=== PATIENT | female | born 1985 | race Caucasian/White ===

== ENCOUNTER 2022-06-11 18:06 | Emergency (ER) | payer OTHER, SELFPAY ==
[2022-06-11 18:19] VITALS: BP 137/85; PULSE 90; RESP 18; TEMP 36.7; O2SAT 97; BMI 63.6
--- NOTE | 2022-06-11 18:48 | CRLHL7_ITS ---
For Patients: As a result of the Cures Act, medical imaging exams and procedure reports are released immediately into your electronic medical record. You may view this report before your referring provider. If you have questions, please contact your health care provider. INDICATION: Bleeding during . COMPARISON: No images available. TECHNIQUE: Grayscale color Doppler images of the pelvis. FINDINGS: The uterus is anteverted. There is a candidate gestational sac within the uterus measuring 2.2 centimeters. No pole or yolk sac is identified. The left ovary is not identified. The right ovary measures 3.2 x 1.5 x 2.6 cm. No focal ovarian lesion. No free fluid. IMPRESSION: A candidate gestational sac measures upper limits of normal size without pole or yolk sac. Differential includes early or failed . Recommend continued clinical follow-up and serial beta HCG. Dictated by Alfredo Monahan MD @ 06/11/2022 9:13:34 PM (Electronically Signed)
--- NOTE | 2022-06-11 18:57 | ED.PREGNANCY ---
HPI - General Time Seen by Provider: 18:58 <Pricilla Duncan MD - Last Filed: 06/11/22 20:42> Date Seen: 06/11/22 <Pricilla Duncan MD - Last Filed: 06/11/22 20:42> Chief complaint: Vaginal Bleeding <Pricilla Duncan MD - Last Filed: 06/11/22 20:42> Stated complaint: Vaginal Bleed <Pricilla Duncan MD - Last Filed: 06/11/22 20:42> Time Seen by Provider: 06/11/22 18:07 <Pricilla Duncan MD - Last Filed: 06/11/22 20:42> Source: patient, RN notes reviewed and old records reviewed (Did see her report of her ultrasound on her phone from May 13. She had a 6 week IUP) <Pricilla Duncan MD - Last Filed: 06/11/22 20:42> Mode of arrival: ambulatory <Pricilla Duncan MD - Last Filed: 06/11/22 20:42> Limitations: no limitations <Pricilla Duncan MD - Last Filed: 06/11/22 20:42> History of Present Illness HPI Narrative: Patient is a 36-year-old female coming in with bleeding in . She was at [employer] and had a positive test and ultrasound on May 13, giving her a date of 6 weeks. She had a Mirena IUD and they removed that. Over the weekend, she had some spotting and bleeding. On Wednesday she passed more clots. She is still bleeding but not symptomatic. She is not feeling lightheaded or like she might pass out. She is wondering if she is miscarrying. I was able to see her ultrasound report and it did look like they saw gestational sac in the uterus without pole. She notes that she has had no symptoms such as breast tenderness or morning sickness with this . This would be her 4th . She is not having significant abdominal pain, has had some cramping like menstrual cramps. By patient's 1st ultrasound, her estimated date of delivery was 01/06/2022, this would put her at 10 weeks 1 day of currently today. <Pricilla Duncan MD - Last Filed: 06/11/22 20:42> Hx Last Menstrual Period: Unknown as patient became on a Mirena IUD <Pricilla Duncan MD - Last Filed: 06/11/22 20:42> Patient : Yes <Pricilla Duncan MD - Last Filed: 06/11/22 20:42> Related Data : 4 <Pricilla Duncan MD - Last Filed: 06/11/22 20:42> Para: 3 <Pricilla Duncan MD - Last Filed: 06/11/22 20:42> Home medications: Home Medications Medication Instructions Recorded Confirmed No Known Home Medications 06/11/22 06/11/22 <Pricilla Duncan MD - Last Filed: 06/11/22 20:42> Allergies/Adverse reactions: Allergies Allergy/AdvReac Type Severity Reaction Status Date / Time venlafaxine [From Effexor] Allergy Mild Rash Verified 06/11/22 18:31 Penicillins Allergy Unknown Verified 06/11/22 18:31 <Pricilla Duncan MD - Last Filed: 06/11/22 20:42> Review of Systems Status of ROS: Reports: 6 or more systems reviewed and unremarkable except as noted in History and below <Pricilla Duncan MD - Last Filed: 06/11/22 20:42> Exam Const: Vital Signs, click to edit/add: Vital Signs - 24 hr 06/11/22 18:19 Temperature 98.1 F Pulse Rate [Right Pulse Oximeter] 90 Respiratory Rate 18 Blood Pressure [Ri ght Upper Arm] 137/85 Pulse Oximetry 97 Oxygen Delivery Me thod Room Air <Pricilla Duncan MD - Last Filed: 06/11/22 20:42> Vital Signs, click to edit/add: Vital Signs - 24 hr 06/11/22 18:19 Temperature 98.1 F Pulse Rate [Right Pulse Oximeter] 90 Respiratory Rate 18 Blood Pressure [Ri ght Upper Arm] 137/85 Pulse Oximetry 97 Oxygen Delivery Me thod Room Air <Pricilla Henley MD - Last Filed: 06/11/22 21:25> Documenting provider has reviewed patient's vital signs: yes <Pricilla Duncan MD - Last Filed: 06/11/22 20:42> Common normals: no apparent distress, oriented x3, no limitations, healthy appearing, alert and well nourished <Pricilla Duncan MD - Last Filed: 06/11/22 20:42> General appearance: cooperative, comfortable and well kempt <Pricilla Duncan MD - Last Filed: 06/11/22 20:42> Nutritional appearance: obese <Pricilla Duncan MD - Last Filed: 06/11/22 20:42> HENMT: Common normals: normocephalic and head/scalp atraumatic <Pricilla Duncan MD - Last Filed: 06/11/22 20:42> Head and scalp: normocephalic and atraumatic <Pricilla Duncan MD - Last Filed: 06/11/22 20:42> Eye: Common normals: PERRL, EOMs intact bilaterally, conjunctivae normal and no scleral icterus <Pricilla Duncan MD - Last Filed: 06/11/22 20:42> Conjunctiva: conjunctiva(e) normal <Pricilla Duncan MD - Last Filed: 06/11/22 20:42> Pupil: PERRL <Pricilla Duncan MD - Last Filed: 06/11/22 20:42> Resp: Common normals: normal respiratory effort, no retractions, no use of accessory muscles and clear to auscultation bilaterally <Pricilla Duncan MD - Last Filed: 06/11/22 20:42> Auscultation: clear to auscultation bilaterally <Pricilla Duncan MD - Last Filed: 06/11/22 20:42> Cardio: Common normals: regular rate, regular rhythm, S1 normal heart sound, S2 normal heart sound, no gallops, no clicks and no murmurs <Pricilla Duncan MD - Last Filed: 06/11/22 20:42> Rate: regular rate <Pricilla Duncan MD - Last Filed: 06/11/22 20:42> Rhythm: regular rhythm <Pricilla Duncan MD - Last Filed: 06/11/22 20:42> Heart sounds: S1 normal and S2 normal <Pricilla Duncan MD - Last Filed: 06/11/22 20:42> GI: Other: No noted abdominal pain but body habitus does preclude good examination. Certainly no rebound or guarding. <Pricilla Duncan MD - Last Filed: 06/11/22 20:42> Neuro: Common normals: oriented x3 <Pricilla Duncan MD - Last Filed: 06/11/22 20:42> Sensorium/orientation: alert <Pricilla Duncan MD - Last Filed: 06/11/22 20:42> Psych: Appearance: well kempt <Pricilla Duncan MD - Last Filed: 06/11/22 20:42> Course Course Hospital Course: This patient is alert, hemodynamically stable, not giving any history for concern of severe active bleeding. We will obtain an ultrasound and appropriate blood work. Is unclear she has had RhoGAM with prior pregnancies thus will do ABO and Rh screening. <Pricilla Duncan MD - Last Filed: 06/11/22 20:42> Reevaluation(s) Reevaluation #1: Reviewed with patient she is A negative, did order RhoGAM. Hemoglobin is stable, hCG is in the 1000 range which is much lower than it was. Preliminarily the ultrasound is showing small gestational sac about 7 weeks 1 day with no fetus no yolk sac. Need to await Radiology over-read. Care signed over to Dr. Henley <Pricilla Duncan MD - Last Filed: 06/11/22 20:42> Time: 20:25 <Pricilla Duncan MD - Last Filed: 06/11/22 20:42> Vital Signs Vital signs: Initial Vital Signs Temperature 98.1 F 06/11/22 18:19 Temperature Source Temporal Artery Scan 06/11/22 18:19 Pulse Rate 90 06/11/22 18:19 Respiratory Rate 18 06/11/22 18:19 Blood Pressure 137/85 06/11/22 18:19 Blood Pressure Mean 102 06/11/22 18:19 Blood Pressure Position Sitting 06/11/22 18:19 Pulse Oximetry 97 06/11/22 18:19 Oxygen Delivery Method 06/11/22 18:19 Vital Signs Temperature 98.1 F 06/11/22 18:19 Pulse Rate 90 06/11/22 18:19 Respiratory Rate 18 06/11/22 18:19 Blood Pressure 137/85 06/11/22 18:19 Pulse Oximetry 97 06/11/22 18:19 Oxygen Delivery Method 06/11/22 18:19 Temperature 98.1 F 06/11/22 18:19 Pulse Rate 90 06/11/22 18:19 Respiratory Rate 18 06/11/22 18:19 Blood Pressure 137/85 06/11/22 18:19 Pulse Oximetry 97 06/11/22 18:19 Oxygen Delivery Method 06/11/22 18:19 <Pricilla Duncan MD - Last Filed: 06/11/22 20:42> Initial Vital Signs Temperature 98.1 F 06/11/22 18:19 Temperature Source Temporal Artery Scan 06/11/22 18:19 Pulse Rate 90 06/11/22 18:19 Respiratory Rate 18 06/11/22 18:19 Blood Pressure 137/85 06/11/22 18:19 Blood Pressure Mean 102 06/11/22 18:19 Blood Pressure Position Sitting 06/11/22 18:19 Pulse Oximetry 97 06/11/22 18:19 Oxygen Delivery Method 06/11/22 18:19 Vital Signs Temperature 98.1 F 06/11/22 18:19 Pulse Rate 90 06/11/22 18:19 Respiratory Rate 18 06/11/22 18:19 Blood Pressure 137/85 06/11/22 18:19 Pulse Oximetry 97 06/11/22 18:19 Oxygen Delivery Method 06/11/22 18:19 Temperature 98.1 F 06/11/22 18:19 Pulse Rate 90 06/11/22 18:19 Respiratory Rate 18 06/11/22 18:19 Blood Pressure 137/85 06/11/22 18:19 Pulse Oximetry 97 06/11/22 18:19 Oxygen Delivery Method 06/11/22 18:19 <Pricilla Henley MD - Last Filed: 06/11/22 21:25> MDM - OB/Uterine Contractions MDM Narrative Medical decision making narrative: Ultrasound showing a gestational sac without a yolk or embryo. We discussed that she would likely continue to spot and then have a heavier bleeding. She is going to follow-up with OBGYN this week. We discussed reasons to return to the ER. Patient had no other questions or concerns. <Pricilla Henley MD - Last Filed: 06/11/22 21:25> Lab Data Attestation: I reviewed the patient's lab results. <Pricilla Duncan MD - Last Filed: 06/11/22 20:42> Lab results narrative: Patient states her hCG was at a 10,000 level on May 13. <Pricilla Duncan MD - Last Filed: 06/11/22 20:42> Labs: Lab Results 06/11/22 06/11/22 06/11/22 Range/Units 19:15 19:15 19:15 WBC 7.51 (4.50-11.00) K/uL RBC 4.90 (4.00-5.20) m/uL Hgb 14.0 (12.0-16.0) gm/dL Hct 43.8 (33.0-51.0) % MCV 89 (80-100) fL MCH 29 (26-34) pg MCHC 32 (32-36) gm/dL RDW Coeff of Ventura 12.7 (11.5-15.5) % Plt Count 275 (140-440) K/uL Neut % (Auto) 63.0 (42.0-72.0) % Lymph % (Auto) 28.0 (20-44) % Sutter % (Auto) 6.7 (0.0-11.0) % Eos % (Auto) 2.0 (0.0-7.0) % Baso % (Auto) 0.3 (0.0-3.0) % Neut # (Auto) 4.74 (1.7-7.0) K/uL Lymph # (Auto) 2.10 (0.90-2.90) K/uL Sutter # (Auto) 0.50 (0.00-0.90) K/UL Eos # (Auto) 0.15 (0.00-0.50) K/uL Baso # (Auto) 0.02 (0.00-0.30) K/uL Abs Immat Gran (auto) 0.00 (0.00-0.30) K/uL HCG, Quant 1152.60 mIU/mL Blood Type A Negative <Pricilla Duncan MD - Last Filed: 06/11/22 20:42> Lab Results 06/11/22 06/11/22 06/11/22 Range/Units 19:15 19:15 19:15 WBC 7.51 (4.50-11.00) K/uL RBC 4.90 (4.00-5.20) m/uL Hgb 14.0 (12.0-16.0) gm/dL Hct 43.8 (33.0-51.0) % MCV 89 (80-100) fL MCH 29 (26-34) pg MCHC 32 (32-36) gm/dL RDW Coeff of [place] 12.7 (11.5-15.5) % Plt Count 275 (140-440) K/uL Neut % (Auto) 63.0 (42.0-72.0) % Lymph % (Auto) 28.0 (20-44) % Sutter % (Auto) 6.7 (0.0-11.0) % Eos % (Auto) 2.0 (0.0-7.0) % Baso % (Auto) 0.3 (0.0-3.0) % Neut # (Auto) 4.74 (1.7-7.0) K/uL Lymph # (Auto) 2.10 (0.90-2.90) K/uL Sutter # (Auto) 0.50 (0.00-0.90) K/UL Eos # (Auto) 0.15 (0.00-0.50) K/uL Baso # (Auto) 0.02 (0.00-0.30) K/uL Abs Immat Gran (auto) 0.00 (0.00-0.30) K/uL HCG, Quant 1152.60 mIU/mL Blood Type A Negative <Pricilla Henley MD - Last Filed: 06/11/22 21:25> Imaging Data Limited OB ultrasound: Attestation: I have reviewed the pertinent imaging results. <Pricilla Henley MD - Last Filed: 06/11/22 21:25> Radiologist's impression: Grayscale color Doppler images of the pelvis. FINDINGS: The uterus is anteverted. There is a candidate gestational sac within the uterus measuring 2.2 centimeters. No pole or yolk sac is identified. The left ovary is not identified. The right ovary measures 3.2 x 1.5 x 2.6 cm. No focal ovarian lesion. No free fluid. IMPRESSION: A candidate gestational sac measures upper limits of normal size without pole or yolk sac. Differential includes early or failed . Recommend continued clinical follow-up and serial beta HCG. <Pricilla Henley MD - Last Filed: 06/11/22 21:25> Critical Care Time Critical Care Time Critical Care Time: No <Pricilla Duncan MD - Last Filed: 06/11/22 20:42> Discharge Plan Discharge Clinical Impression: Empty gestational sac with ongoing <Pricilla Duncan MD - Last Filed: 06/11/22 20:42> Patient Disposition: Home, Self-Care <Pricilla Duncan MD - Last Filed: 06/11/22 20:42> Condition: Stable <Pricilla Duncan MD - Last Filed: 06/11/22 20:42> Additional Instructions: You will be given information on how follow-up with OBGYN this week. Expect continued spotting with probable heavier bleeding in the next few days. Return to the ER if you start to have very heavy bleeding where you are soaking a pad every hour or more frequently. <Pricilla Duncan MD - Last Filed: 06/11/22 20:42> Prescriptions: No Action No Known Home Medications <Pricilla Duncan MD - Last Filed: 06/11/22 20:42> Follow Up/Referrals: Provider,Not a Local [Primary Care Provider] - <Pricilla Duncan MD - Last Filed: 06/11/22 20:42> Stand Alone Forms: MyHealth Info Instructions <Pricilla Duncan MD - Last Filed: 06/11/22 20:42>
[2022-06-11 19:21] LABS: Basophils Absolute Auto 0.02 K/uL (0.00-0.30); Basophils Percent Auto 0.3 % (0.0-3.0); Eosinophils Absolute Auto 0.15 K/uL (0.00-0.50); Hematocrit 43.8 % (33.0-51.0); Mean Corpuscular HGB Conc 32 gm/dL (32-36); Mean Corpuscular Hemoglobin 29 pg (26-34); Mean Corpuscular Volume 89 fL (80-100); Monocytes Percent Auto 6.7 % (0.0-11.0); Neutrophils Absolute Auto 4.74 K/uL (1.7-7.0); Platelet Count* 275 K/uL (140-440); RDW Coefficient of Variation % 12.7 % (11.5-15.5); White Blood Count* 7.51 K/uL (4.50-11.00)
[2022-06-11 19:24] LABS: Slide Review Reflex No
--- NOTE | 2022-06-11 22:03 | ED.NURSE ---
Rhophylac administered into right deltoid.
== END 2022-06-11 22:09 | disposition home or self-care (01) ==
PROVIDERS: Family Medicine; Emergency Provider Family Medicine
DX: O36.80X0 Pregnancy with inconclusive fetal viability, not applicable or unspecified (principal)
CPT/HCPCS: 36415; 76801; 76815; 76817; 84702; 85025; 85461; 86900; 86901; 99284; J2791

== ENCOUNTER 2022-06-15 09:39 | Outpatient (CLI) | payer OTHER, SELFPAY ==
--- NOTE | 2022-06-15 09:45 | CRLHL7_ITS ---
For Patients: As a result of the Century Cures Act, medical imaging exams and procedure reports are released immediately into your electronic medical record. You may view this report before your referring provider. If you have questions, please contact your health care provider. INDICATION: First trimester scan, establish dates. COMPARISON: None. TECHNIQUE: Real-time baeza-scale imaging of the pelvis was performed. FINDINGS: A gestational sac is present within the endometrial canal with a mean sac diameter of 25.3 millimeters correlating with a 7 week 4 day gestation. This has shown interval growth compared to the prior study 4 days ago when it measured 7 weeks 1 day. A pole may be present on the current exam measuring 5.5 millimeters which would correspond with a 6 week 2 day gestation. No heart tones. No ectopic. IMPRESSION: Mild interval growth of the gestational sac and development of a possible pole as discussed above. Continued follow-up is recommended. Dictated by Nuno Colon MD @ 06/15/2022 10:47:41 AM (Electronically Signed)
== END 2022-06-15 09:40 | disposition home or self-care (01) ==
PROVIDERS: Visit Provider Obstetrics & Gynecology
DX: O02.0 Blighted ovum and nonhydatidiform mole (principal)
CPT/HCPCS: 76801; 76817

== ENCOUNTER 2022-06-16 13:20 | Outpatient (CLI) | payer OTHER, SELFPAY | END 2022-06-16 13:21 | disposition home or self-care (01) | PROVIDERS: Visit Provider Obstetrics & Gynecology | DX: O02.0 Blighted ovum and nonhydatidiform mole (principal) | CPT/HCPCS: 84702 ==

== ENCOUNTER 2022-06-18 08:18 | Day surgery (SDC) | payer OTHER, SELFPAY ==
[2022-06-18] MEDS: LACTATED RINGERS 1000 ML 1,000 ML 100 ML IV (08:30)
[2022-06-18 08:53] VITALS: BP 145/90; PULSE 83; RESP 18; TEMP 36.6; O2SAT 95
[2022-06-18 08:54] VITALS: BMI 64.3
--- NOTE | 2022-06-18 10:01 | W.PM.GYNPROC ---
Procedure Note Time Seen by Provider: 09:00 Date Seen: 06/18/22 Procedure Details: Preoperative diagnosis: Carol Cooley is a 36-year-old 4 para 3 0 1 3 with a missed at approximately 7 weeks 4 days gestation by ultrasound. Postoperative diagnosis: Same Procedure (s): Suction curettage and Mirena IUD insertion Anesthesia: Conscious sedation, paracervical block Surgeon: Mabel Dumas MD Business Continuity Planning Director: Not applicable Pre-op antibiotics: 3 g of Ancef IV fluid: [] mL Estimated blood loss: [] mL Specimen: Products of conception to pathology Findings: On exam under anesthesia: the uterus was approximately 7 weeks size, anterior position. Cervical os was [closed/dilated] [with/without] active bleeding. Adnexa were without mass or fullness palpable. The uterus sounded to [] cm. On suction curettage there was a moderate to large amount of products of conception. Procedure: [Patient name] was taken to the operating room where conscious sedation was found to be adequate. She was placed in the dorsal lithotomy position and an exam under anesthesia was performed with with findings stated above. She was then prepped and draped in normal sterile manner. A bivalve speculum was placed in the vagina to visualize the cervix. A paracervical block was placed using 0.5% Marcaine: 5 mL injected at the 4 and 8 o'clock positions on the cervix. The [] lip of the cervix was grasped with a long Allis clamp. The cervix was dilated to Hegar # []. A #[] curved curette was then advanced into the uterus without difficulty. A suction curettage was then performed using 40-50 mmHg pressure. [] passes with the curette were performed to remove all visualized tissue. The curette was removed and mild, sharp curettage was performed to verify that all of the products of conception had been removed. One last pass with the curved curette was then made to verify that all of the tissue had been removed. Attention was turned to IUD placement. The IUD is loaded into the insertion tube, inserted to the sounded depth, and the IUD is deployed. Insertion tube was removed. Strings are trimmed to 3 cm. The Allis clamp was removed from the [] lip of the cervix. [] was needed to obtain hemostasis. Excellent hemostasis was noted. The speculum was then removed from the vagina. The patient tolerated this procedure well. Sponge, lap and instrument counts were correct x2 the end of the procedure. The patient was awakened from sedation and taken to the recovery area in stable condition.
[2022-06-18] MEDS: CEFAZOLIN 1 GM inj 3 GM IVP (10:12)
[2022-06-18] MEDS: BUPIVACAINE 0.25 %/EPI 1:200K 30 ml INJECTION (10:35)
--- NOTE | 2022-06-18 10:45 | PM.GYNPRPL ---
Procedure Pre-op/Post-op diagnoses: Pre-Op/Post-Op Diagnoses Operation Date: 06/18/22 09:55 <No data on this case meets the specified criteria> Procedure: Procedures Operation Date: 06/18/22 09:55 <No data on this case meets the specified criteria> Estimated blood loss (mL): 25 Anesthesia type: MAC Complications: none Specimen: uterine contents Disposition: PACU Narrative: Preoperative diagnosis: Carol Cooley is a 36-year-old 4 para 3 0 1 3 with a missed at approximately 7 weeks 4 days gestation by ultrasound. Postoperative diagnosis: Same Procedure (s): Suction curettage and Mirena IUD insertion Anesthesia: Conscious sedation, paracervical block Surgeon: Mabel Dumas MD Manager Quality Improvement: Not applicable Pre-op antibiotics: 3 g of Ancef Estimated blood loss: 25 mL Specimen: Products of conception to pathology Findings: On exam under anesthesia: the uterus was approximately 6 weeks size, anterior position. Cervix was very difficult to visualize adequately due to redundant vaginal tissue and patient's overall habitus. Multiple retractors required. Cervical os was dilated without active bleeding but some tissues noted at external os. Adnexa very difficult to assess due to habitus. Large posterior compartment prolapse noted - visually stage 2-3. The uterus sounded to 7 cm. On suction curettage there was a small amount of products of conception. Procedure: Carol was taken to the operating room where conscious sedation was found to be adequate. She was placed in the dorsal lithotomy position and an exam under anesthesia was performed with with findings stated above. She was then prepped and draped in normal sterile manner. A bivalve speculum was placed in the vagina to visualize the cervix. A paracervical block was placed using 0.25% Marcaine: 10 mL injected at the 12, 4 and 8 o'clock positions on the cervix. The anterior lip of the cervix was grasped with a long Allis clamp. The cervix was dilated to Hegar # 6. A #6 curved curette was then advanced into the uterus without difficulty. A suction curettage was then performed using 40-50 mmHg pressure - unable to achieve 60 mmHg. 3 passes with the curette were performed to remove all visualized tissue. The curette was removed and mild, sharp curettage was performed to verify that all of the products of conception had been removed. One last pass with the curved curette was then made to verify that all of the tissue had been removed. Attention was turned to IUD placement. The IUD is loaded into the insertion tube, inserted to the sounded depth, and the IUD is deployed. Insertion tube was removed. Strings are trimmed to 3 cm. The Allis clamp was removed from the anterior lip of the cervix. Excellent hemostasis was noted. The speculum was then removed from the vagina. The patient tolerated this procedure well. Sponge, lap and instrument counts were correct x2 the end of the procedure. The patient was awakened from sedation and taken to the recovery area in stable condition.
--- NOTE | 2022-06-18 10:53 | W.ANESCHARGE ---
Anesthesia Charges Start Date/Time Anesthesia Start Date: 06/18/22 Anesthesia Start Time: 09:55 Stop Date/Time Anesthesia Stop Date: 06/18/22 Anesthesia Stop Time: 10:52 Summary Emergency: No
[2022-06-18 10:55] VITALS: BP 134/84; PULSE 94; RESP 16; TEMP 36.6; O2SAT 98
--- NOTE | 2022-06-18 11:10 | W.ANESCHARGE ---
Anesthesia Charges Start Date/Time Anesthesia Start Date: 06/18/22 Anesthesia Start Time: 09:55 Stop Date/Time Anesthesia Stop Date: 06/18/22 Anesthesia Stop Time: 10:52 Summary Emergency: No
[2022-06-18 11:16] VITALS: BP 132/76; PULSE 85; RESP 16; O2SAT 95
== END 2022-06-18 11:53 | disposition home or self-care (01) ==
PROVIDERS: Visit Provider Obstetrics & Gynecology
PROC: (CPT 59820; principal; 2022-06-18 09:45)
DX: O02.1 Missed abortion (principal); Z3A.01 Less than 8 weeks gestation of pregnancy
CPT/HCPCS: 59820; 58300; 00940; 01965; 88305; J0690; J2250; J2704; J3010; J3490; J7120; J7298

== ENCOUNTER 2022-06-29 09:19 | Outpatient (CLI) | payer OTHER, SELFPAY ==
--- OUTSIDE RECORDS SUMMARY | 2022-06-29 09:23 | XMS_ITS | Encounter Summary ---
:1985 Author Organization [facility] Address [address] [place] [address] Care Team Providers Name Role Phone Alberto Locke M.D. Primary Care Provider Encounter Details Date Type Department Care Team Description 05/13/2022 Hospital Department of [place], Frequency Urin shonna Encounter Laboratory Rusty Santiago, Medicine in [address] [id number] [phone] Social History Tobacco Use Types Packs/Day Years Used Date Smoking Tobacco: Some Days Cigarettes 0 0 Smokeless Tobacco: Never Comments: Smoking 1-2 cigarettes monthly Alcohol Use Standard Drinks/Week Comments Not Currently 0 (1 standard drink = 0.6 oz pure alcoho l) occasional 1-2 a year Alcohol Habits Answer Date Recorded How often do you have a drink containing alcohol? Monthly or less 07/09/2020 How many drinks containing alcohol do you have on a 1 or 2 07/09/2020 typical day when you are drinking? How often do you have six or more drinks on one Never 04/19/2019 occasion? Social Isolation Answer Date Recorded In a typical week, how many times do you Twice a week 07/09/2020 talk on the phone with family, friends, or neighbors? How often do you get together with friends Once a week 04/19/2019 or relatives? How often do you attend anabaptism or rastafari More than 4 time s per year 07/09/2020 services? Do you belong to any clubs or organizations No 04/19/2019 such as anabaptism groups, unions, fraternal or athletic groups, or school groups? How often do you attend meetings of the Never 04/19/2019 clubs or organizations you belong to? Are you now , , , 04/19/2019 , never or living with a partner? Physical Activity Answer Date Recorded On average, how many days per week do you engage in moderate to 1 day 07/09/2020 strenuous exercise (like walking fast, running, jogging, dancing, swimming, biking, or other activities that cause a light or heavy sweat)? On average, how many minutes do you engage in exercise at th is 20 min 07/09/2020 level? Stress Answer Date Recorded Do you feel stress - tense, restless, nervous, or anxious, R ather much 07/09/2020 or unable to sleep at night because your mind is troubled all the time - these days? Financial Resource Strain Answer Date Recorded How hard is it for you to pay for the very basics like Somew hat hard 07/09/2020 food, housing, medical care, and heating? Intimate Partner Violence Answer Date Recorded Within the last year, have you been afraid of your No 04/19/2019 partner or ex-partner? Within the last year, have you been humiliated or No 04/19/2019 emotionally abused in other ways by your partner or ex-partner? Within the last year, have you been kicked, hit, No 04/19/2019 slapped, or otherwise physically hurt by your partner or ex-partner? Within the last year, have you been raped or forced to Patie nt refused 04/19/2019 have any kind of sexual activity by your partner or ex-partner? Food Insecurity Answer Date Recorded Within the past 12 months, you worried that your food Someti mes true 07/09/2020 would run out before you got money to buy more. Within the past 12 months, the food you bought just Never tr ue 04/19/2019 didn't last and you didn't have money to get more. Transportation Needs Answer Date Recorded In the past 12 months, has lack of transportation kept you f rom No 04/19/2019 medical appointments or from getting medications? In the past 12 months, has lack of transportation kept you f rom No 04/19/2019 meetings, work, or getting things needed for daily living? Education Answer Date Recorded What is the highest level of school you have Some college, n o degree 07/09/2020 completed or the highest degree you have received? Sex Assigned at Date Recorded Female 11/19/2017 10:29 AM CDT documented as of this encounter Medications at Time of Discharge Medication Sig Dispensed Refills Start Date End Date acetaminophen Take 1-2 tablets by 0 06/24/2017 (for_TYLENOL) 500 mg mouth every 6 (six) tablet hours as needed. azithromycin (ZITHROMAX) Take 1 tablet (250 mg 6 tablet 0 05/02/2022 250 mg tablet total) by mouth daily. Take 2 tablets (500 mg) on day 1, followed by 1 tablet (250 mg) daily for 4 days. benzonatate (TESSALON Take 1 capsule (100 mg 15 capsule 0 PERLES) 100 mg capsule total) by mouth 3 (three) times a day as needed for cough. escitalopram (LEXAPRO) Take 10 mg by mouth 0 04/23 10 mg tablet daily. Has not started yet FLUoxetine (PROzac) 20 60 mg daily. 0 02/04/2022 mg capsule levonorgestreL (MIRENA) 1 each by intrauterine 0 20 mcg/24 hours (6 yrs) route continuously. 52 mg IUD ondansetron (ZOFRAN) 4 Take 1 tablet (4 mg 20 tablet 0 01/22 mg tabletIndications: total) by mouth every Nausea 8 (eight) hours as needed for nausea or vomiting. polyethylene glycol Drink 1st portion of 238 g 0 2021 (MIRALAX) 17 gram/dose prep at 6 PM the oral powderIndications: evening before. 2nd Diarrhea portion must be started 4 hours before and finished 2 hours prior to report time documented as of this encounter Plan of Treatment Scheduled Procedures Name Priority Associated Diagnoses Date/Time COLONOSCOPY Diarrhea documented as of this encounter Procedures Procedure Name Priority Date/Time Associated Comments Diagnosis BACTERIAL CULTURE, Routine 05/13/2022 12:30 Frequency Urinary Results for this AEROBIC + SUSC, URINE PM CDT proced ure are in the results section. URINALYSIS WITH Routine 05/13/2022 12:30 Results for this MICROSCOPIC PM CDT procedure are i n the results section. documented in this encounter Results (ABNORMAL) Urinalysis with Microscopic: (05/13/2022 12:30 PM CDT) [facility] Time Signature Source Urine, Urine, 05/13/2022 [facility] Midstream 12:33 PM CDT Clarity Slightly Clear 05/13/2022 [facility] Cloudy (A) 12:51 PM CDT Color Yellow 05/13/2022 [facility] 12:51 PM CDT Comment: ----REFERENCE VALUE---- Colorless Yellow Philomena Blood Large (A) Negative 05/13/2022 12:51 PM CDT [facility] Nitrite Negative Negative 05/13/2022 12:51 PM CDT [facility] Leukocyte Esterase Moderate (A) Negative 05/13/2022 12:51 P M CDT [facility] Protein Trace mg/dL 05/13/2022 12:51 PM CDT [facility] Comment: ----REFERENCE VALUE---- Negative Trace Glucose Negative Negative mg/dL 05/13/2022 12:51 PM CDT R [facility] Ketones, QI(U) Negative Negative mg/dL 05/13/2022 12:51 PM CDT [facility] Bilirubin Negative Negative 05/13/2022 12:51 PM CDT [facility] pH 5.5 5.0 - 8.0 05/13/2022 12:51 PM CDT [facility] Specific [place] >=1.030 1.001 - 1.035 05/13/2022 12:51 PM CDT [facility] Urobilinogen 0.2 0.2 - 1.0 mg/dL 05/13/2022 12:51 PM C DT [facility] White Blood Cells 11-20 (A) /hpf 05/13/2022 12:51 PM CD T [facility] Comment: ----REFERENCE VALUE---- Males: 0-3 Females: 0-10 Unknown: 0-10 Red Blood Cells 3-10 (A) 0 - 2 /hpf 05/13/2022 12:51 PM CDT [facility] Dysmorphic Red Blood Cells <=25 <=25 % 05/13/2022 12 :51 PM CDT [facility] Squamous Cells 4-10 /hpf 05/13/2022 12:51 PM CDT [facility] Bacteria Present (A) None Seen 05/13/2022 12:51 PM CDT [facility] Specimen Anatomical Collection Method Collection Time Receive d Time (Source) Location / / Volume Laterality Urine 05/13/2022 12:30 05/13/2022 PM CDT 12:33 PM CDT Rusty Guevara M.D. LAB URINE ORDERABLES Performing Organization Address City/[facility]/ZIP Code Phon e Number [facility]- [address] [place], [place] [address] [address] [place] [address] System in [place] [place] (ABNORMAL) Bacterial Culture, Aerobic + Susc, Urine (05/13/2022 12:30 PM CDT) [facility] gist Method Time Signature Urine Culture Mixed 05/14/2022 [facility] microbiota (A) 6:52 PM CDT Specimen Anatomical Collection Method Collection Time Receive d Time (Source) Location / / Volume Laterality Urine (Urine, 05/13/2022 12:30 05/13/2022 9:38 Midstream) PM CDT PM CDT Comment: Specimen Source Site: Urine Rusty Guevara M.D. 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 PCP - General Family Medicine 04/27/19 [address] [facility] [place] [phone] documented as of this encounter
--- OUTSIDE RECORDS SUMMARY | 2022-06-29 09:23 | XMS_ITS | Encounter Summary ---
:1985 Author Organization [facility] Address [address] [place] [address] Care Team Providers Name Role Phone Alberto Locke M.D. Primary Care Provider Reason for Visit Reason Comments Follow-up Encounter Details Date Type Department Care Team Description 05/13/2022 Clinical Communication Department of Nichole Ivey Follow-up Obstetrics and A, R.N. Gynecology in [address] [address] [place], [place] [phone] [phone] (Work) [phone] Social History Tobacco Use Types Packs/Day Years [...] or relatives? How often do you attend muslim or christian More than 4 time s per year 07/09/2020 services? Do you belong to any clubs or organizations No 04/19/2019 such as muslim groups, unions, fraternal or athletic groups, or [...] to pay for the very basics like Vouchr hat hard 07/09/2020 food, housing, medical care, [...] AM CDT documented as of this encounter Miscellaneous Notes Telephone Encounter - Nichole Ivey R.N. - 05/13/2022 9:12 AM CDT Patient returned call and informed of plan. Patient transferred to call center receptionist to schedule. Warning signs for ectopic reviewed with patient. If experiencing severe abdominal pain, severe cramping, or vaginal bleeding (heavy bleeding protocol). patient to come to emergency room call us or come in for evaluation. Telephone Encounter - Nichole Ivey R.N. - 05/13/2022 8:07 AM CDT Patient is calling stating she had the Mirena IUD in. She states she has had this in for 1 1/2 years. She states she normal gets her period, and had bleeding a few weeks ago. She states she took a homepregnancy test 2 nights ago and got a faint line on her test. She repeated the test again last night and noted it to be even more faint, but still could see a line. She states she is having some mild abdominal cramping and has noticed that she is urinating more often. Routing to on-call provider for review. documented in this encounter Plan of Treatment Scheduled Procedures Name Priority Associated Diagnoses Date/Time COLONOSCOPY Diarrhea documented as of this encounter Results (ABNORMAL) Bacterial Culture, Aerobic + Susc, Urine (05/13/2022 12:30 PM CDT) Patholo gist Method Time Signature Urine Culture Mixed 05/14/2022 [facility] microbiota (A) 6:52 PM CDT Specimen Anatomical Collection Method Collection Time Receive d Time (Source) Location / / Volume Laterality Urine (Urine, 05/13/2022 12:30 05/13/2022 9:38 Midstream) PM CDT PM CDT Comment: Specimen Source Site: Urine Rusty Guevara M.D. LAB MICROBIOLOGY - GENE RAL ORDERABLES Performing Organization Address City/State/ZIP Code Phon e Number [facility]- [address] [place] [address] [phone] [facility] [place] [address] (ABNORMAL) hCG (Human Chorionic Gonadotropin), Quantitative, (05/13/2022 12:07 PM CDT) Analysis Performed At [facility] Time Signature HCG, [address] (H) <5 IU/L 05/13/2022 [facility] Quantitative, 1:11 PM CDT , P Specimen Anatomical Collection Method Collection Time Receive d Time (Source) Location / / Volume Laterality Blood (Blood, 05/13/2022 12:07 05/13/2022 Venous) PM CDT 12:21 PM CDT Rusty Guevara M.D. 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 PCP - General Family Medicine 04/27/19 [place] [phone] documented as of this encounter
--- OUTSIDE RECORDS SUMMARY | 2022-06-29 09:23 | XMS_ITS | Encounter Summary ---
:1985 [address] [facility] Address [address] [place] [address] Care Team Providers Name Role Phone Alberto Locke M.D. Primary Care Provider Encounter Details Date Type Department Care Team Description 05/02/2022 [facility] [place], Carlie Bronchitis (Primary Department A, FISHER TRAP, C.N.P., Dx) [address] [place], [place] [address], [place] [address] [address] [place], [place] [phone] (Wo rk) Social History Tobacco Use Types Packs/Day Years [...] or relatives? How often do you attend islam or yarsanism More than 4 time s per year 07/09/2020 services? Do you belong to any clubs or organizations No 04/19/2019 such as islam groups, unions, fraternal or athletic groups, or [...] AM CDT documented as of this encounter Discharge Instructions Discharge InstructionsCarlie Reyes APRN, R.N. - 05/02/2022 7:54 PM CDT Plan Prednisone 40 mg daily x 5 days Z-hali take as directed Tessalon perles 100 mg 3 x a day as needed (may take 200 mg at night if needed) Follow up with primary care provider if symptoms persist after treatment Return to emergency department for worsening symptoms including fever, difficulty breathing, chest pain, vomiting. AttachmentsThe following attachments cannot be sent through Care Everywhere. Acute Bronchitis Adult Zobc-dv-Uevn (Belarusian)documented in this encounter Medications at Time of Discharge Medication Sig Dispensed Refills Start Date End Date acetaminophen Take 1-2 tablets by 0 06/24/2017 (for_TYLENOL) 500 mg mouth every 6 (six) tablet hours as needed. azithromycin Take 1 tablet (250 mg 6 tablet 0 05/02/2022 (ZITHROMAX) 250 mg total) by mouth tablet daily. Take 2 tablets (500 mg) on day 1, followed by 1 tablet (250 mg) daily for 4 days. benzonatate (TESSALON Take 1 capsule (100 15 capsule 0 05/02 PERLES) 100 mg capsule mg total) by mouth 3 (three) times a day as needed for cough. FLUoxetine (PROzac) 20 60 mg daily. 0 02/04/2022 mg capsule levonorgestreL (MIRENA) 1 each by 0 20 mcg/24 hours (6 yrs) intrauterine route 52 mg IUD continuously. ondansetron (ZOFRAN) 4 Take 1 tablet (4 mg 20 tablet 0 /2 03/2022 mg tabletIndications: total) by mouth every Nausea 8 (eight) hours as needed for nausea or vomiting. polyethylene glycol Drink 1st portion of 238 g 0 2021 (MIRALAX) 17 gram/dose prep at 6 PM the oral powderIndications: evening before. 2nd Diarrhea portion must be started 4 hours before and finished 2 hours prior to report time predniSONE (DELTASONE) Take 2 tablets (40 mg 10 tablet 0 05/07/2022 20 mg tablet total) by mouth daily for 5 days. documented as of this encounter ED Notes Carlie Reyes APRN, R.N. - 05/02/2022 7:54 PM CDT SUBJECTIVE CHIEF COMPLAINT/REASON FOR VISIT No chief complaint on file. HISTORY OF PRESENT ILLNESS History provided by: Patient and medical records Carol Cooley is a very pleasant 36 y.o. with past medical history of GERD who presents via private car from home for evaluation of cough. Patient reports productive cough that has been gradually worsening over the past 7-10 days. Cough has been persistent. Reports that she has been coughing so hard she feels she will vomit at times. Sputum expectorated is greenish in color. No fever, chills, chest pain. Current smoker. Home COVID 19 negative. REVIEW OF SYSTEMS Constitutional: Negative for activity change, chills, fatigue and fever. HENT: Positive for congestion. Negative for sore throat. Respiratory: Positive for cough. Negative for chest tightness and shortness of breath. Cardiovascular: Negative for chest pain and palpitations. Gastrointestinal: Negative for diarrhea, nausea and vomiting. Genitourinary: Negative for dysuria and hematuria. Musculoskeletal: Negative for myalgias. Skin: Negative for rash. Neurological: Negative for dizziness, weakness and headaches. Psychiatric/Behavioral: The patient is not nervous/anxious. OBJECTIVE Initial Vitals Temp Pulse Heart Rate Resp BP SpO2 -- -- -- -- -- -- Pain Score -- PHYSICAL EXAMINATION Constitutional: Nursing note and vitals reviewed. She is cooperative. HENT: Head: Atraumatic. Mouth/Throat: Oropharynx is clear and moist. Mucous membranes are moist. Eyes: Conjunctivae are normal. Neck: Neck supple. Cardiovascular: Normal rate. Pulmonary/Chest: Effort normal and breath sounds normal. No respiratory distress. Abdominal: Normal appearance. Musculoskeletal: Cervical back: Neck supple. Comments: Moves all extremities Neurological: Alert. Normal speech. Skin: No rash (on exposed skin) noted. ASSESSMENT/PLAN Ddx: viral upper respiratory illness, pneumonia, COPD exacerbation, emphysema, strep throat illness,bronchitis, asthma, reactive airway disease, chronic cough, medication side effects, allergic rhinitis, bronchiolitis, and gastroesophageal reflux disease Carol Cooley is a very pleasant 36 y.o. who presents for evaluation of cough. Exam findings include persistent cough. Clear lungs, no wheezing. Has no history of asthma. With persistent symptoms and HO smoking will treat for bronchitis. Provided prednisone, tessalon perles and z-hali. Strict return precautions provided and recommended follow up if symptoms persist despite treatment. Patient verbalized understanding and stable for discharge. I reviewed previous medical records including documentation from previous visits.CPR: No CPR performed. Final Diagnoses: as of 05/02/222100 Bronchitis Carlie Reyes APRN, R.N. 05/02/222000 Carlie Reyes APRN, R.N. 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 PCP - General Family Medicine 04/27/19 [place] [phone] documented as of this encounter
--- OUTSIDE RECORDS SUMMARY | 2022-06-29 09:23 | XMS_ITS | Encounter Summary ---
:1985 Author Organization [facility] Address [address] [place] [address] Care Team Providers Name Role Phone Alberto Locke M.D. Primary Care Provider Reason for Referral Outpatient (Routine) - Authorized Specialty Diagnoses / Procedures Referred By Contact Refer red To Contact Orthopedic Surgery Nicolette Moise APRN, [facility] C.N.P., D.N.P. [address] [place] [phone] Referral ID Status Reason Start Date Expiration Date Visits V isits Requested Authorized [id number] Authorized 05/05/2022 05/04/2025 1 1 RI/CAT/PET Scan (Routine) - Pending Review Specialty Diagnoses / Procedures Referred By Contact Refer red To Contact Radiology Diagnoses Pain Knee Left Nicolette Moise APRN, [facility] [place] [facility] Procedures MR Knee Left without IV Contrast C.N.P., D.N.P. [address] [place] [address] Referral ID Status Reason Start Date Expiration Date Visits V isits Requested Authorized [id number] Pending 05/05/2022 05/05/2023 1 1 Review Encounter Details Date Type Department Care Team Description 05/05/2022 Orders Only Department of Nicolette Moise L, Pain Knee L eft Orthopedic Surgery in [place], (Prim shonna Dx) Caroline Toure D.N.P. [address] [place] [phone] Social History Tobacco Use Types Packs/Day Years [...] or relatives? How often do you attend taoist or evangelical More than 4 time s per year 07/09/2020 services? Do you belong to any clubs or organizations No 04/19/2019 such as taoist groups, unions, fraternal or athletic groups, or [...] minutes do you engage in exercise at is 20 min 07/09/2020 level? Stress Answer [...] AM CDT documented as of this encounter Plan of Treatment Scheduled Orders Name Type Priority Associated Diagnoses Order S chedule MR Knee Left Imaging RAD - Routine (most Pain Knee Left Expect ed: without IV Contrast inpatients and all outpatients) (Approximate), Expires: 08/04/2023 Scheduled Procedures Name Priority Associated Diagnoses Date/Time COLONOSCOPY Diarrhea Scheduled Referrals Name Type Priority Associated Order Schedule Diagnoses Orthopedic Surgery Outpatient Referral Routine Ex pected: office visit 05/05/2022 (clinic) (Approximate), Expires: 08/04/2023 documented as of this encounter Visit Diagnoses Diagnosis Pain Knee Left - Primary documented in this encounter Additional Health Concerns Assessment Noted Time PHQ-9 Depression Total Score: 9 07/08/2020 3:59 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 PCP - General Family Medicine 04/27/19 [address] [place] [phone] documented as of this encounter
--- OUTSIDE RECORDS SUMMARY | 2022-06-29 09:23 | XMS_ITS | Encounter Summary ---
:1985 Author Organization [facility] Address [address] [place] [address] Care Team Providers Name Role Phone Alberto Locke M.D. Primary Care Provider Reason for Visit Reason Comments Ankle Injury Encounter Details Date Type Department Care Team Description 05/26/2022 Emergency [place] [facility], Jeaneth Bustillos, Inj ury Ankle Initial Right (Primary Dx); Department P.A.-C. Sprain Ankle Initial Right [address] [place] [id number] Social History Tobacco Use Types Packs/Day Years [...] or relatives? How often do you attend scientology or hoahaoism More than 4 time s per year 07/09/2020 services? Do you belong to any clubs or organizations No 04/19/2019 such as scientology groups, unions, fraternal or athletic groups, or [...] AM CDT documented as of this encounter Last Filed Vital Signs Vital Sign Reading Time Taken Comments Blood Pressure 173/89 05/26/2022 3:53 PM CDT Pulse 102 05/26/2022 3:53 PM CDT Temperature 36.4 ??C (97.5 ??F) 05/26/2022 3:53 PM CDT Respiratory Rate 18 05/26/2022 3:53 PM CDT Oxygen Saturation 98% 05/26/2022 3:53 PM CDT Inhaled Oxygen Concentration - - Weight - - Height - - Body Mass Index - - documented in this encounter Discharge Instructions AttachmentsThe following attachments cannot be sent through Care Everywhere. Ankle Sprain (Nepali)documented in this encounter Medications at Time of [...] report time documented as of this encounter Procedure Notes Jeaneth Earl P.A.-C., MBrittaneyS. - 05/26/2022 4:32 PM CDTAssociated Order(s): Splint Application Procedure Splint Application Performed by: Jeaneth Earl P.A.-C. MBrittaneyS. Authorized by: Jeaneth Earl P.A.-C. M.SBrittaney PROCEDURE DETAILS Immobilization: Brace Brace type: ankle stirrup Supplies used: Removeable orthosis CONSENT Consent obtained: verbal Consent given by: patient The benefits, risks and alternatives to the procedure and the potential need for sedation or anesthesia as well as the names, roles, and responsibilities of healthcare team members performing significant interventional tasks were discussed with the patient and/or decision maker. UNIVERSAL PROTOCOL All relevant documentation and testing were reviewed and available. All required blood products, implants, devices and or special equipment were made available as applicable. Pre-procedure verificationwas conducted and the correct site was marked if required. A fire risk assessment was done as applicable. The procedural time-out to verify correct patient, correct side/site, and procedure was conducted prior to performing the procedure and confirmed in a procedural pause. PRE PROCEDURE DETAILS Procedure type: application Performed by: RN Indication: sprain Circulation distal to injury: capillary refill < 2 sec, warm, pink and palpable pulse Movement distal to injury: normal Sensation distal to injury: normal SEDATION / ANESTHESIA Anesthesia method: none POST PROCEDURE DETAILS Procedure completed successfully: yes Pain: Unchanged Circulation distal to injury: capillary refill < 2 sec, warm, pink and palpable pulse Movement distal to injury: normal Sensation distal to injury: normal Tetanus is up to date: Unknown Complications: no immediate complications Jeaneth Earl P.A.-C., M.S. 05/26/22 1635 documented in this encounter ED Notes Nuno Quijano C.N.P. - 05/26/2022 4:01 PM CDT Patient seen and evaluated with Apollo Earl PAC. . Please see their note for full history, exam, workup, MDM and plan. Briefly, this is a pleasant 36 y.o. female who comes in today with ankle pain. Patient stepped in a hole her dog had dug, twisting her right ankle. Has been bearing weight since. Initial considerationsincluded sprain, strain, contusion, fracture or others. Exam findings are significant for swollen ankle, otherwise well perfused. ED COURSE: Final Diagnoses: as of 05/26/221658 Injury Ankle Initial Right Sprain Ankle Initial Right RADIOLOGY: DX Ankle Right 3+ Views Final Result No acute fracture or dislocation. Alignment is anatomic. Ankle mortise intact and symmetric. The talar dome is normal. Achilles insertional enthesopathy. Small plantar calcaneal spur. No significant joint effusion. Soft tissue swelling circumferentially surrounding the lower leg and ankle, nonspecific. Labs and imaging reveal negative xray for fracture. Overall, findings today are most concerning for Final diagnoses: [S99.911A] Injury Ankle Initial Right [S93.401A] Sprain Ankle Initial Right and she will be treated with air cast, ice, elevation follow up in a week if not improved. . Anticipate disposition will be home. Nuno Quijano, ZEYAD, REFUSE AND RECYCLING WORKER, ACID RETORT OPERATOR-C, AGACNP-BC, ENP-C Emergency Medicine Nuno Quijano C.N.P. 05/26/221658 Jeaneth Earl P.A.-C., M.S. - 05/26/2022 3:52 PM CDT CHIEF COMPLAINT/REASON FOR VISIT Ankle Injury HISTORY OF PRESENT ILLNESS Carol Cooley is a 36 y.o. female with a history of obesity, migraines, DANIEL, GERD, ADHD, and depression who presents to the ED for evaluation of constant, nonradiating, 8/10, aching right ankle pain x 1 hour after tripping in a hole and twisting her right ankle. She describes an inversion injury. Pain is worse with movement and ambulation. No relieving factors. She has tried Tylenol for pain relief. No bruising or deformity, but she does have mild swelling over the outer ankle. She reports paresthesias in right foot and toes, but no focal weakness of extremities. She has been weight bearing andambulating with little difficulty. No fevers, chills, sweats, headache, cough/URI symptoms, chest pain, shortness of breath, sputum, wheezing, abdominal pain, nausea, vomiting, diarrhea, urinary symptoms, change in taste/smell, rash or skin changes, change in bladder habits or other concerning symptoms. No recent illness, ill contacts, recent travel or known/suspected COVID-19 exposure. Past Medical History: Reviewed in the EMR. Agree with nursing documentation. Pertinent past medical history noted per HPI. Past Medical History: Diagnosis Date Hemorrhage Gastrointestinal 11/13/2017 Hypertension NOS Hypovolemic Shock ([facility]) 11/11/2017 Sleep Apnea does not use CPAP machine Patient Active Problem List Diagnosis Body Mass Index 60.0 To 69.9 Adult ([facility]) Abuse Tobacco Smoking Migraine Headache Apnea Sleep Obstructive Gastroesophageal Reflux Disease NOS Attention Deficit With Hyperactivity Disorder Depression Major Recurrent ([facility]) Diarrhea Medications: No current facility-administered medications on file prior to encounter. Current Outpatient Medications on File Prior to Encounter Medication Sig Dispense Refill acetaminophen (for_TYLENOL) 500 mg tablet Take 1-2 tablets by mouth every 6 (six) hours as needed. azithromycin (ZITHROMAX) 250 mg tablet Take 1 tablet (250 mg total) by mouth daily. Take 2 tablets (500 mg) on day 1, followed by 1 tablet (250 mg) daily for 4 days. (Patient not taking: Reported on 05/13/2022) 6 tablet 0 benzonatate (TESSALON PERLES) 100 mg capsule Take 1 capsule (100 mg total) by mouth 3 (three) timesa day as needed for cough. 15 capsule 0 escitalopram (LEXAPRO) 10 mg tablet Take 10 mg by mouth daily. Has not started yet FLUoxetine (PROzac) 20 mg capsule 60 mg daily. levonorgestreL (MIRENA) 20 mcg/24 hours (6 yrs) 52 mg IUD 1 each by intrauterine route continuously. ondansetron (ZOFRAN) 4 mg tablet Take 1 tablet (4 mg total) by mouth every 8 (eight) hours as needed for nausea or vomiting. 20 tablet 0 polyethylene glycol (MIRALAX) 17 gram/dose oral powder Drink 1st portion of prep at 6 PM the evening before. 2nd portion must be started 4 hours before and finished 2 hours prior to report time (Patient not taking: Reported on 05/13/2022) 238 g 0 Family History: Family History Problem Relation Age of Onset Cancer Grandmother ear Cystic fibrosis Sister Cancer Grandfather larynx Lung cancer Grandmother brain cancer Heart attack Father 47 Hypothyroidism Mother Lung cancer Paternal Grandmother Melanoma Maternal Grandmother Other cancer Maternal Grandfather Throat cancer ADD Son Anesthesia problems Neg Hx Social History: Reviewed in the EMR. Agree with nursing documentation. Pertinent social history noted per HPI. Social History Tobacco Use Smoking status: Some Days Packs/day: 0.00 Years: 0.00 Pack years: 0.00 Types: Cigarettes Smokeless tobacco: Never Tobacco comments: Smoking 1-2 cigarettes monthly Substance Use Topics Alcohol use: Not Currently Comment: occasional 1-2 a year Drug use: No REVIEW OF SYSTEMS Const: no fever, chills, sweats Eyes: no redness, vision changes ENT: no sore throat, runny nose, sinus pain, ear pain CV: no chest pain, shortness of breath Resp: no cough, wheezing, shortness of breath, sputum production GI: no anorexia, nausea, vomiting, diarrhea, abdominal pain : no polyuria, dysuria, urinary frequency/urgency, hematuria, hesitancy, flank pain Neuro: no headache, photophobia or pain with EOMs, vision changes, speech changes, smell, taste, or hearing changes, paresthesias or focal weakness of extremities, seizures, confusion, memory loss, gait/coordination difficulty Heme: no anemia, easy bruising/bleeding, use of antiplatelets/anticoagulants Endo: no high blood sugar, polyuria, polydipsia Skin: no rashes, itching, diaphoresis, change in color MSK: Right ankle pain/swelling; no deformity, arthralgias, limitation of ROM ALL/IM: no h/o allergic reactions or immunocompromised state Psych: no agitation, anxiety PHYSICAL EXAMINATION Nursing notes reviewed. Initial Vitals Temperature Pulse Rate Heart Rate Resp Rate Blood Pressure SpO2 05/26/22 1553 05/26/22 1553 -- 05/26/22 1553 05/26/22 1553 05/26/22 1553 36.4 ??C 102 18 (!) 173/89 98 % Pain Score 05/26/22 1555 8 Vitals: 05/26/22 1553 BP: (!) 173/89 BP Location: Left arm Patient Position: Semi-recumbent Pulse: 102 Resp: 18 Temp: 36.4 ??C TempSrc: Temporal SpO2: 98% General: Awake, alert, oriented x3. Well appearing, nontoxic. No apparent distress. Head: Normocephalic, atraumatic. Eyes: Normal sclerae and conjunctivae, PERRLA, extraocular movements intact ENT: Oropharynx is clear, moist mucus membranes. Nares patent. Hearing is grossly normal. Neck: Supple, full range of motion. Heart: Regular rate and rhythm. No murmurs, gallops, or rubs. Lungs: Normal respiratory effort. No stridor, retractions, or respiratory distress. Lungs clear to auscultation bilaterally. No wheezing, rales, or rhonchi. Back: Normal to inspection, normal range of motion. Ext: Warm, well-perfused. No cyanosis or clubbing. There is tenderness on palpation of right lateralmalleolus with associate soft tissue swelling. No step-offs, crepitus, or joint laxity noted. Good range of motion in dorsiflexion and plantarflexion. She can wiggle toes easily. Normal range of motionof other extremities without bony tenderness. Skin: Warm, dry, normal color. No rashes or diaphoresis. Neuro: Awake, alert, GCS 15, speech clear, cranial nerves II-XII grossly intact, normal bulk, tone and strength in all extremities, normal sensation x4 without focal deficits. Vascular: Peripheral pulses symmetric, normal cap refill. Psych: Pleasant and appropriate. ED Course as of 05/26/221628 e May 26, 2022 1603 Met with patient to perform history and physical exam, outline emergency department work up andinitial treatment, as well as explain expected time frame. 1622 Ankle xray shows soft tissue swelling only. No fracture or dislocation. 162 The patient was reassessed and updated on results and plan. Will prepare for discharge. Final Diagnoses: as of 05/26/22 162 Injury Ankle Initial Right Sprain Ankle Initial Right PROCEDURES: Air splint applied See separate procedure note. MEDICAL DECISION MAKING: In summary, this is a pleasant 36 y.o. female with a history of obesity, migraines, DANIEL, GERD, ADHD,and depression who presents to the ED for evaluation of constant, nonradiating, 8/10, aching right ankle pain x 1 hour after tripping in a hole and twisting her right ankle. She describes an inversion injury. Pain is worse with movement and ambulation. No relieving factors. She has tried Tylenol for pain relief. No bruising or deformity, but she does have mild swelling over the outer ankle. She reports paresthesias in right foot and toes, but no focal weakness of extremities. She has been weight bearing and ambulating with little difficulty. No fevers, chills, sweats, headache, cough/URI symptoms, chest pain, shortness of breath, sputum, wheezing, abdominal pain, nausea, vomiting, diarrhea, urinary symptoms, change in taste/smell, rash or skin changes, change in bladder habits or other concerningsymptoms. No recent illness, ill contacts, recent travel or known/suspected COVID-19 exposure. On ER arrival, the patient is well appearing, nontoxic with elevated blood pressure, tachycardia andotherwise normal vitals. Exam reveals tenderness on palpation of right lateral malleolus with associate soft tissue swelling. No step-offs, crepitus, or joint laxity noted. Good range of motion in dorsiflexion and plantarflexion. She can wiggle toes easily Differential diagnoses: Ankle sprain, fibular fracture, tibia fracture, calcaneus fracture, bi- or tri-malleolar fracture, septic joint, gout, arthritis, peroneal tendonitis, arterial insufficiency ulcer, neuropathy, among others. ED course/interventions: Met with patient upon ER arrival. 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 Ankle xray shows soft tissue swelling only. No fracture or dislocation. Will be discharge home with conservative management, OTC Tylenol, RICE, heat, weight bear as tolerated and close follow up with PCP advised. Danger signs were discussed for return. -- Nursing documentation and prior records reviewed in the medical record. -- I personally reviewed by visualization, interpreted, and discussed with the patient the results of imaging studies as reported in the medical record. Medications - No data to display FINAL DIAGNOSIS: 1. Injury Ankle Initial Right 2. Sprain Ankle Initial Right ED Prescriptions None DIAGNOSTIC RESULTS Labs Reviewed - No data to display DX Ankle Right 3+ Views Final Result No acute fracture or dislocation. Alignment is anatomic. Ankle mortise intact and symmetric. The talar dome is normal. Achilles insertional enthesopathy. Small plantar calcaneal spur. No significant joint effusion. Soft tissue swelling circumferentially surrounding the lower leg and ankle, nonspecific. Jeaneth Earl P.A.-C., M.S. 05/26/22 1630 documented in this encounter Plan of Treatment Scheduled Procedures Name Priority Associated Diagnoses Date/Time COLONOSCOPY Diarrhea documented as of this encounter Procedures Procedure Name Priority Date/Time Associated Comments Diagnosis SPLINT APPLICATION Routine 05/26/2022 4:32 Result s for this PM CDT procedure are i n the results section. DX ANKLE RIGHT 3+ RAD - Semiurgent 05/26/2022 4:14 Res ults for this VIEWS (Fast; most ED PM CDT procedure are in patients; some the results inpatients) section. documented in this encounter Results Splint Application (05/26/2022 4:32 PM CDT) Narrative Jeaneth Earl P.A.-C., M.S. - 4:32 PM CDT Jeaneth Earl P.A.-C., M.S. ? 05/26/2022 ??4:35 PM Splint Application Performed by: Jeaneth Earl P.A.-C., M. S. Authorized by: Jeaneth Earl P.A.-C., M .SBrittaney PROCEDURE DETAILS Immobilization: ??Brace Brace type: ankle stirrup ?? Supplies used: ??Removeable orthosis CONSENT Consent obtained: verbal Consent given by: patient The benefits, risks and alternatives to the procedure and the potential need for sedation or anesthesia as well as the names, roles, and responsibilities of healthcare team memb ers performing significant interventional tasks were discussed with the patient and/or decision maker. UNIVERSAL PROTOCOL All relevant documentation and testing w ere reviewed and available. All required blood products, implants, devic es and or special equipment were made available as applicable. Pre-proced ure verification was conducted and the correct site was marked if required. A fire risk assessment was done as applicable. The procedural time-out t o verify correct patient, correct side/site, and procedure was conducted p rior to performing the procedure and confirmed in a procedural pause. PRE PROCEDURE DETAILS Procedure type: application ?? Performed by: ??RN Indication: sprain ?? Circulation distal to injury: capillary refill < 2 sec, warm, pink and palpable pulse ?? Movement distal to injury: normal ?? Sensation distal to injury: normal ?? SEDATION / ANESTHESIA Anesthesia method: none POST PROCEDURE DETAILS Procedure completed successfully: yes ?? Pain: ??Unchanged Circulation distal to injury: capillary refill < 2 sec, warm, pink and palpable pulse ?? Movement distal to injury: normal ?? Sensation distal to injury: normal ?? Tetanus is up to date: ??Unknown Complications: no immediate complication s ?? Jeaneth Earl P.A.-C. PROCEDURE/MINOR SURGICAL ORD ERABLES DX Ankle Right 3+ Views (05/26/2022 4:14 PM CDT) Anatomical Region Laterality Modality Lower Extremity, Ankle, Musculoskeletal RST LOS, Right Digital Radiography Musculoskeletal ARZ LOS, Muskuloskeletal FLA LOS Specimen (Source) Anatomical Collection Method Collection Time Re ceived Time Location / / Volume Laterality 05/26/2022 4:17 PM CDT Impressions 05/26/2022 4:17 PM CDT No acute fracture or dislocation. Alignment is anatomic. Ankle mortise intact and symmetric. The talar dome is normal. Ach illes insertional enthesopathy. Small plantar calcaneal spur. No significant joint effusion. Sof t tissue swelling circumferentially surrounding the lower leg and ankle, nonspecific. Narrative 05/26/2022 4:17 PM CDT EXAM: DX ANKLE RIGHT 3+ VIEWS Procedure Note Parth Walton M.D. - 05/26/2022Formatt ing of this note might be different from the original. EXAM: DX ANKLE RIGHT 3+ VIEWS IMPRESSION: No acute fracture or dislocation. Alignm ent is anatomic. Ankle mortise intact and symmetric. The talar dome is normal. Ach illes insertional enthesopathy. Small plantar calcaneal spur. No significant joint effusion. Sof t tissue swelling circumferentially surrounding the lower leg and ankle, nonspecific. 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 PCP - General Family Medicine 04/27/19 [address] [place] [id number] documented as of this encounter
--- OUTSIDE RECORDS SUMMARY | 2022-06-29 09:23 | XMS_ITS | Encounter Summary ---
:1985 Author Organization [facility] Address [address] [place] [address] Care Team Providers Name Role Phone Alberto Locke M.D. Primary Care Provider Reason for Referral Outpatient (Routine) - Authorized Specialty Diagnoses / Procedures Referred By Contact Refer red To Contact Diagnoses Surveillance Intrauterine Device Examination Test With Positive Result (HCC) Rusty Guevara [facility] Procedures IUD Removal M[address]Kelly [address] [place] [address] Referral ID Status Reason Start Date Expiration Date Visits V isits Requested Authorized [id number] Authorized 05/13/2022 05/13/2023 1 1 utpatient (Routine) - Authorized Specialty Diagnoses / Referred By Contact Referred To Procedures Contact Obstetrics and Rusty Guevara [facility] Gynecology Sera Santiago [address] [place] [address] Referral ID Status Reason Start Date Expiration Date Visits V isits Requested Authorized [id number] Authorized 05/13/2022 05/12/2025 1 1 Reason for Visit Reason Comments Follow-up Appointment Request (Routine) - Closed Specialty Diagnoses / Procedures Referred By Contact Refer red To Contact Obstetrics and Gynecology Referral ID Status Reason Start Date Expiration Date Visits Requ ested Visits Authorized [id number] Closed 05/13/2022 05/13/2023 1 Encounter Details Date Type Department Care Team Description 05/13/2022 Office Visit Department of [place], Not Reason For Visit (HCC) (Primary Dx); Obstetrics and Rusty Santiago M.D. Surveillance Intrauterine Device; Gynecology in [facility] [address] Infection Urinary Tract Acute; [place], [place] Examination Test W ith Positive Result (HCC) [address] [facility] [address] [place], [place] [phone] (Wo rk) [address] [phone] Social History Tobacco Use Types Packs/Day Years Used Date Smoking Tobacco: Some Days Cigarettes 0 0 Smokeless Tobacco: Never Tobacco Cessation: Ready to Quit: Not As ked; Counseling Given: Not Answered Comments: Smoking 1-2 cigarettes monthly Alcohol Use [...] or relatives? How often do you attend pentecostal or faith More than 4 time s per year 07/09/2020 services? Do you belong to any clubs or organizations No 04/19/2019 such as pentecostal groups, unions, fraternal or athletic groups, or [...] Sign Reading Time Taken Comments Blood Pressure 139/71 05/13/2022 1:45 PM CDT Pulse - - Temperature - - Respiratory Rate - - Oxygen Saturation - - Inhaled Oxygen Concentration - - Weight 161 kg (355 lb 6.1 oz) 05/13/2022 1:45 PM CDT Height - - Body Mass Index 65 02/21/2022 12:21 AM CDT documented in this encounter Progress Notes Rusty Guevara M.D. - 05/13/2022 1:15 PM CDT SUBJECTIVE REASON FOR VISIT IUD surveillance Positive home test, IUD in-situ HISTORY OF PRESENT ILLNESS Ms. Cooley is a 36 y.o. who presents for evaluation due to a positive home test in the setting of a known IUD placement on 07/2020. She denies any abdominal pain. 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 Labia: There is no lesion on the right labia. There is no lesion on the left labia. Vagina: The vagina is normal. Cervix: Cervix exhibits visible IUD strings. Cervix does not exhibit lesion. HENT Head: Normocephalic and atraumatic. Eyes General: Lids are normal. Extraocular Movements: Extraocular movements intact. Neurological General: No focal deficit present. Mental Status: She is alert. Skin General: Skin is warm and dry. Psychiatric Behavior: Behavior is cooperative. Recent Results (from the past 24 hour(s)) hCG (Human Chorionic Gonadotropin), Quantitative, Collection Time: 05/13/22 12:07 PM Result Value HCG, Quantitative, , P [address]61 (H) Urinalysis with Microscopic: Collection Time: 05/13/22 12:30 PM Result Value Source Urine, Urine, Midstream Clarity Slightly Cloudy (A) Color Yellow Blood Large (A) Nitrite Negative Leukocyte Esterase Moderate (A) Protein Trace Glucose Negative Ketones, QI(U) Negative Bilirubin Negative pH 5.5 Specific [place] >=1.030 Urobilinogen 0.2 White Blood Cells 11-20 (A) Red Blood Cells 3-10 (A) Dysmorphic Red Blood Cells <=25 Squamous Cells 4-10 Bacteria Present (A) ASSESSMENT / PLAN #1 Not Reason For Visit (HCC) IUD strings visualized past the cervical os. IUD removed. Today we discussed that her ultrasound shows a gestational sac without a yolk sac. This is consistent with of unknown anatomical location. There is no adnexal mass to suggest an ectopic at the time of this clinical encounter. A gave strong return precautions. She should return if she has significant abdominal pain. - US Pelvis Transvaginal and Transabdominal; Future; Expected date: 05/27/2022 #2 Surveillance Intrauterine Device -IUD removed without difficulty #3 Infection Urinary Tract Acute -PCN allergy, previously tolerated Cephalosporin per chart review. Duricef prescribed due to early . Other orders - Obstetrics and Gynecology office visit (clinic); Future; Expected date: 05/27/2022 - cefadroxil (DURICEF) 500 mg capsule; Take 1 capsule (500 mg total) by mouth 2 (two) times a day for 5 days., Starting Wed05/13/2022, Until Wed05/18/2022, Normal Lena Sera Guevara documented in this encounter Procedure Notes Rusty Guevara M.D. - 05/13/2022 1:15 PM CDTAssociated Order(s): IUD Removal Post-Procedure Diagnose(s): Surveillance Intrauterine Device; Examination Test With Positive Result (HCC) IUD Removal Performed by: Rusty Guevara M.D. Authorized by: Rusty Guevara M.D. Care team members present 1. Taryn Ruiz L.P.N. PROCEDURE DETAILS Procedure: Removal Pelvic exam performed: yes Strings visible: yes IUD removed intact: yes IUD shown to patient prior to disposable: yes CONSENT Consent obtained: written UNIVERSAL PROTOCOL All relevant documentation and testing [...] procedure and confirmed in a procedural pause. PRE-PROCEDURE DETAILS Indications: Positive test in the setting of an implanted IUD. Appropriate hand hygiene, gown, cap, mask, protective eyewear, sterile gloves, skin preparation, sterile drape, and strict aseptic technique were utilized as applicable for the procedure.: yes Site preparation: Povidone-iodine SEDATION / ANESTHESIA Anesthesia method: none COMMENTS RTC in 2 weeks for a repeat ultrasound to confirm viability. 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 documented in this encounter Plan of Treatment Scheduled Orders Name Type Priority Associated Order Schedule Diagnoses US OB First Trimester Imaging RAD - Routine (most No t Expected: and Transvaginal inpatients and all Reason For Visit 1 outpatients) (HCC) (Approximate), Expires: 08/12/2023 Scheduled Procedures Name Priority Associated Diagnoses Date/Time COLONOSCOPY Diarrhea Scheduled Referrals Name Type Priority Associated Order Schedule Diagnoses Obstetrics and Outpatient Referral Routine Expect ed: Gynecology office 05/27/2022 visit (clinic) (Approximate) , Expires: 08/12/2023 documented as of this encounter Procedures Procedure Name Priority Date/Time Associated Diagnosis Comme nts AL REMOVAL OF Routine 05/13/2022 1:15 PM Surveillance Results for this INTRAUTERINE DEVICE CDT Intrauterine Device procedure are in the results Examination Test section. With Positive Result (HCC) documented in this encounter Results AL REMOVAL OF INTRAUTERINE DEVICE (05/13/2022 1:15 PM CDT) Narrative [facility]AL - 05/13/2022 1:15 PM CDT Rusty Guevara M.D. ? 05/13/2022 ??7:33 PM IUD Removal Performed by: Rusty Guevara M.D. Authorized by: Rusty Guevara M.D. Care team members present 1. Taryn Ruiz L.P.N. PROCEDURE DETAILS ??Procedure: ??Removal ??Pelvic exam performed: yes ?Strings visible: yes ?IUD removed intact: yes ?IUD shown to patient prior to disposa ble: yes ?? CONSENT Consent obtained: written UNIVERSAL PROTOCOL All relevant documentation and testing [...] procedure and confirmed in a procedural pause. PRE-PROCEDURE DETAILS ??Indications: Positive test in the setting of an implanted IUD. ??Appropriate hand hygiene, gown, cap, mask, protective eyewear, sterile gloves, skin preparation, sterile drape, and strict aseptic technique were utilized as applicable for the procedure .: yes ?Site preparation: ??Povidone-iodine SEDATION / ANESTHESIA Anesthesia method: none COMMENTS ?? RTC in 2 weeks for a repeat ultrasou nd to confirm viability. Rusty Guevara M.D. 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 PCP - General Family Medicine 04/27/19 [address] [place] [address] documented as of this encounter
--- OUTSIDE RECORDS SUMMARY | 2022-06-29 09:23 | XMS_ITS | Encounter Summary ---
:1985 Author Organization [facility] Address [address] [place] [address] Care Team Providers Name Role Phone Alberto Locke M.D. Primary Care Provider Encounter Details Date Type Department Care Team Description 06/09/2022 Clinical Support [facility] [address] [address] Social History Tobacco Use Types Packs/Day Years [...] or relatives? How often do you attend episcopal or rastafarian More than 4 time s per year 07/09/2020 services? 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 PCP - General Family Medicine 04/27/19 [address] [place] [address] documented as of this encounter
--- OUTSIDE RECORDS SUMMARY | 2022-06-29 09:23 | XMS_ITS | Encounter Summary ---
:1985 Author Organization [facility] Address [address] [place] [address] Care Team Providers Name Role Phone Alberto Locke M.D. Primary Care Provider Reason for Visit Outpatient (Routine) - Canceled Specialty Diagnoses / Procedures Referred By Contact Refer red To Contact Diagnoses Surveillance Intrauterine Device [place], [place], [facility] Region Procedures US Pelvis Transvaginal and Transabdominal US Pelvis Transvaginal and Transabdominal M.DBrittaney [address] [place] [address] Referral ID Status Reason Start Date Expiration Date Visits V isits Requested Authorized [id number] Canceled 05/13/2022 05/13/2023 1 1 Encounter Details Date Type Department Care Team Description 05/13/2022 Hospital Department of [place], Surveillance Encounter Radiology in [place], Intrau terine Device [place], [place] M.DBrittaney [address] [facility] [address] [place] [phone] (Wo rk) Social History Tobacco Use Types [...] or relatives? How often do you attend baptist or scientologist More than 4 time s per year 07/09/2020 services? Do you belong to any clubs or organizations No 04/19/2019 such as baptist groups, unions, fraternal or athletic groups, or [...] 12 months, you worried that your food Jason mes true 07/09/2020 would run out before [...] finished 2 hours prior to report time cefadroxil (DURICEF) Take 1 capsule (500 10 capsule 0 202105/18/2022 500 mg capsule mg total) by mouth 2 (two) times a day for 5 days. documented as of this encounter Plan of Treatment Scheduled Procedures Name Priority Associated Diagnoses Date/Time COLONOSCOPY Diarrhea documented as of this encounter Procedures Procedure Name Priority Date/Time Associated Comments Diagnosis US OB FIRST RAD - Routine 05/13/2022 2:11 Surveillance Results for TRIMESTER AND (most inpatients PM CDT Intrauterine this proce dure TRANSVAGINAL and all Device are in the outpatients) results section. documented in this encounter Results US OB First Trimester and Transvaginal (05/13/2022 2:11 PM CDT) Anatomical Region Laterality Modality Body, Ultrasound OB RST LOS, Ultrasound ARZ LOS, Ultrasound FLA N/A Ultrasound LOS Specimen (Source) Anatomical Collection Method Collection Time Re ceived Time Location / / Volume Laterality 05/13/2022 2:51 PM CDT Impressions 05/13/2022 2:53 PM CDT Small fluid collection in the uterus is suspected to be an early intrauterine but unable to confirm an intrauterine pr egnancy. No positive findings of ectopic . Narrative 05/13/2022 2:53 PM CDT EXAM: US OB FIRST TRIMESTER AND TRANSVAGINAL COMPARISON: None TECHNIQUE: Transabdominal and Transvagin al. Technical note: Limited evaluation due to large patient body habitus. FINDINGS: Number of Gestations: Single Gestational age and NGA by LMP or OB/EHR assignment: Unknown, NGA: N/A INTRAUTERINE Pole: Not seen, [place]-Rump Length: N/A Gestational Sac: Normal Yolk Sac: Not seen Placenta Location: Too Early to ID Age and NGA by current ultrasound measur ements: 6 w 0 d, NGA: 01/06/2023. heart rate: N/A Uterus: No unexpected findings. Right Ovary/Adnexa: Ovary obscured, othe rwise clear. Left Ovary/Adnexa: Normal. only seen tra nsabdominally Cervical Length: Subjectively normal by Transabd evaluation only Intraperitoneal Fluid: None. Procedure Note Valentino Ross M.D. - 05/13/2022Formattin g of this note might be different from the original. EXAM: US OB FIRST TRIMESTER AND TRANSVAG INAL COMPARISON: None TECHNIQUE: Transabdominal and Transvagin al. Technical note: Limited evaluation due to large patient body habitus. FINDINGS: Number of Gestations: Single Gestational age and NGA by LMP or OB/EHR assignment: Unknown, NGA: N/A INTRAUTERINE Pole: Not seen, [place]-Rump Length: N/A Gestational Sac: Normal Yolk Sac: Not seen Placenta Location: Too Early to ID Age and NGA by current ultrasound measur ements: 6 w 0 d, NGA: 01/06/2023. heart rate: N/A Uterus: No unexpected findings. Right Ovary/Adnexa: Ovary obscured, othe rwise clear. Left Ovary/Adnexa: Normal. only seen tra nsabdominally Cervical Length: Subjectively normal by Transabd evaluation only Intraperitoneal Fluid: None. IMPRESSION: Small fluid collection in the uterus is suspected to be an early intrauterine but unable to confirm an intrauterine pr egnancy. No positive findings of ectopic . Rusty Guevara M.D. 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 PCP - General Family Medicine 04/27/[address] [place] [phone] documented as of this encounter
--- OUTSIDE RECORDS SUMMARY | 2022-06-29 09:23 | XMS_ITS | Clinical Summary ---
:1985 Author Organization [facility] Address [address] [place] [address] Care Team Providers Name Role Phone Alberto Locke M.D. Primary Care Provider Source Comments Patient records contain information from all sites at [facility]. For routine questions regarding patient records, call [phone] during business hours, M-F 8:00 AM - 5:00 PM Central Time. Record requests for emergency care only can be directed to [phone] at any time.[facility] Allergies Active Allergy Reactions Severity Noted Date Comments Venlafaxine Other (see comments) Medium 03/05/2020 Light h eaded and Dizziness Penicillins Other (see comments) Low 01/12/2012 Does no t recall reaction- reports reactio n during childhood. Medications Medication Sig Dispensed Refills Start Date End Date Status acetaminophen Take 1-2 tablets by 0 06/24/2017 Active (for_TYLENOL) 500 mg mouth every 6 (six) tablet hours as needed. levonorgestreL 1 each by 0 Activ e (MIRENA) 20 mcg/24 intrauterine route hours (6 yrs) 52 mg continuously. IUD FLUoxetine (PROzac) 60 mg daily. 0 02/04/2022 Active 20 mg capsule ondansetron (ZOFRAN) Take 1 tablet (4 mg 20 tablet 0 2 Active 4 mg total) by mouth tabletIndications: every 8 (eight) Nausea hours as needed for nausea or vomiting. polyethylene glycol Drink 1st portion 238 g 0 02/17/2022 Active (MIRALAX) 17 of prep at 6 PM the gram/dose oral evening before. 2nd powderIndications: portion must be Diarrhea started 4 hours before and finished 2 hours prior to report time Additional Information Patient not taking. Reported on 05/13/2022 azithromycin (ZITHROMAX) 250 Take 1 tablet (250 mg 6 tablet 0 05/02/2022 Active mg tablet total) by mouth daily. Take 2 tablets (500 mg) on day 1, followed by 1 tablet (250 mg) daily for 4 days. Additional Information Patient not taking. Reported on 05/13/2022 benzonatate (TESSALON PERLES) Take 1 capsule (100 mg 15 capsule 0 05/02/2022 Active 100 mg capsule total) by mouth 3 (three) times a day as needed for cough. escitalopram (LEXAPRO) 10 mg Take 10 mg by mouth 0 0 05/07/2022 Active tablet daily. Has not started yet Active Problems Problem Noted Date Diarrhea 02/17/2022 Overview: Added automatically from request for guillermina arreola [id number] Body Mass Index 60.0 To 69.9 Adult 11/06/2016 Overview: Body Mass Index (BMI) 50.0-59.9 Adult Apnea Sleep Obstructive 06/11/2015 Overview: Sleep study 06/11/2015 - severe DANIEL Recommended nasal CPAP at 9 cm H2O Abuse Tobacco Smoking 12/12/2014 Migraine Headache 12/12/2014 Gastroesophageal Reflux Disease NOS 05/02/2014 Attention Deficit With Hyperactivity Disorder 04/03/20 14 Depression Major Recurrent 04/03/2014 Resolved Problems Problem Noted Date Resolved Date Anemia 05/31/2019 09/11/2019 Precipitate Labor 04/12/2019 04/20/2019 Care Insufficient 04/12/2019 04/20/2019 Overview: Patient did not know she was un til delivery Section Delivery 04/12/2019 09/11/2019 Gallstone With Common Bile Duct Stone 02/09/2018 Overview: Added automatically from request for guillermina arreola [id number] Hemorrhage Gastrointestinal 11/13/2017 02/18/2018 Pain Right Upper Quadrant 11/11/2017 04/20/2019 Melena 11/11/2017 02/18/2018 Overview: Added automatically from request for guillermina arreola [id number] Hypovolemic Shock 11/11/2017 02/18/2018 Calculus Of Bile Duct Without Cholangitis Or Cholecystitis W ith 11/08/2017 04/20/2019 Obstruction Overview: Added automatically from request for guillermina arreola [id number] Appendicitis Acute 09/08/2017 09/17/2017 Overview: Added automatically from request for guillermina arreola [id number] Obesity Unspecified 05/01/2014 02/18/2018 Encounters Date Type Specialty Care Team Description 06/09/2022 Clinical Support Family Medicine Prisca Olvera, C.M.A. 05/26/2022 Emergency Emergency Jeaneth Earl, Injury Ankle Initial Right (Primary Dx); Medicine P.A.-C. Sprain Ankle In itial Right 05/13/2022 Office Visit Obstetrics and [place], Not Reason For Visit (HCC) (Primary Dx); Gynecology Oluwafunmilayo O, Surveillan ce Intrauterine Device; M.D. Infection Urina ry Tract Acute; Exami nation Test With Positive Result (HCC) 05/13/2022 Hospital Encounter Radiology [place], Surveilla nce Oluwafunmilayo O, Intrauteri ne M.D. Device 05/13/2022 Hospital Encounter Laboratory [place], Frequency Urinary Medicine Oluwafunmilayo O, M.D. 05/13/2022 Hospital Encounter Laboratory [place], Surveilla nce Medicine Oluwafunmilayo O, Intrauteri ne M.D. Device 05/13/2022 Orders Only Obstetrics and [place], Surveillance Gynecology Oluwafunmilayo O, Intrauteri ne M.D. Device (Primary Dx) 05/13/2022 Clinical Obstetrics and Nichole Ivey, Follow -up Communication Gynecology R.N. 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 (Primar y Dx) 05/02/2022 Emergency Emergency Carlie Reyes s Medicine A, JOSEFA, C.N.PBrittaney, (Primary Dx ) R.N. from Last 3 Months Immunizations Name Administration Dates Next Due MMR 04/15/2019, 06/25/2017 PPD Test 03/27/2009 Rho (D) Immune Globulin (IM only) 04/07/2017 SARS-COV-2 (COVID-19) - BRITTNI 11/29/2020 (J&J) Tdap 04/15/2019, 04/07/2017, 02/06/2008 JJ 06/26/2017 influenza vaccine quad 06/09/2022, 07/11/2021, 05/30/2019, (FLUZONE/FLUARIX) (6 months and 05/11/2018, 06/25/2017 older)(PF) Family History Medical History Relation Name Comments Heart attack Father Cancer Grandfather maternal larynx Cancer Grandmother 1 maternal ear Lung cancer Grandmother 2 paternal brain cancer Other cancer Maternal Grandfather Nehemiah Throat canc er Melanoma Maternal Grandmother Prisca Hypothyroidism Mother Lung cancer Paternal Grandmother Klaudia Cystic fibrosis Sister ADD Son Edy Anesthesia problems Neg Hx Relation Name Status Comments Father Grandfather maternal Grandmother 1 maternal Grandmother 2 paternal Maternal Grandfather Nehemiah Maternal Grandmother Prisca Mother Paternal Grandmother Klaudia Sister Son Edy Social History Tobacco Use Types Packs/Day Years [...] or relatives? How often do you attend religious or islam More than 4 time s per year 07/09/2020 services? Do you belong to any clubs or organizations No 04/19/2019 such as religious groups, unions, fraternal or athletic groups, or [...] Date Recorded Female 11/19/2017 10:29 AM CDT Last Filed Vital Signs Vital Sign Reading Time Taken Comments Blood Pressure 173/89 05/26/2022 3:53 PM CDT Pulse 102 05/26/2022 3:53 PM CDT Temperature 36.4 ??C (97.5 ??F) 05/26/2022 3:53 PM CDT Respiratory Rate 18 05/26/2022 3:53 PM CDT Oxygen Saturation 98% 05/26/2022 3:53 PM CDT Inhaled Oxygen Concentration - - Weight 161 kg (355 lb 6.1 oz) 05/13/2022 1:45 PM CDT Height 157.5 cm (5' 2) 02/21/2022 12:21 AM CDT Body Mass Index 65 02/21/2022 12:21 AM CDT Plan of Treatment Scheduled Procedures Name Priority Associated Diagnoses Date/Time COLONOSCOPY Diarrhea Health Maintenance Due Date Last Done Comments Hepatitis B Vaccines (1 of 3 - 1985 3-dose series) Hepatitis C Screening 1985 Hepatitis A Vaccines (1 of 2 - 12/27/1987 Risk 2-dose series) Pneumococcal vaccine (0-64 years) 1992 (1 - PCV) Lipid (Cholesterol) Screening 03/15/2019 03/15/2014 Depression Monitoring (PHQ-9) 11/05/2020 07/08/2020 COVID-19 Vaccine (2 - Booster for 01/24/2021 11/29/2020 Brittni series) Tobacco Cessation counseling 02/17/2023 02/17/2022 Cervical Cancer Screening 07/24/2025 07/24/2020, 07/24/2020 , 12/09/2016, Additional history exists DTaP,Tdap,and Td Vaccines (4 - Td 04/15/2029 04/15/2019, , or Tdap) 02/06/2008 Influenza Vaccine Completed 06/09/2022, 07/11/2021, 05/30/2019, Additional history exists Medical Devices Implanted Type Area Ladle Liner Device Shelf Model / Identifier Expiration Serial / Date Lot Hardware E.G. Hardware Abdomen Pins/Screws/Ro e.g. ds pins/screws/ rods Description: Clamp for GI bleed Nexplanon-07/20/2018 Other/Legacy - See Arm 10/07/2020 / Implanted: 07/20/2018 by Leonora Reaves APRN, C.N.P. ( Quantity not on file) Implant Description / [id number] Procedures Procedure Name Priority Date/Time Associated Comments Diagnosis SPLINT APPLICATION Routine 05/26/2022 4:32 Result s for PM CDT this procedure are in the results section. DX ANKLE RIGHT 3+ RAD - Semiurgent 05/26/2022 4:14 Res ults for VIEWS (Fast; most ED PM CDT this procedur e patients; some are in the inpatients) results section. US OB FIRST RAD - Routine 05/13/2022 2:11 Surveillance Results for TRIMESTER AND (most inpatients PM CDT Intrauterine this proce dure TRANSVAGINAL and all Device are in the outpatients) results section. OK REMOVAL OF Routine 05/13/2022 1:15 Surveillance Results for INTRAUTERINE DEVICE PM CDT Intrauterine this pro cedure Device are in the results Examination Test section. With Positive Result (HCC) URINALYSIS WITH Routine 05/13/2022 12:30 Results for MICROSCOPIC PM CDT this procedure are in the results section. BACTERIAL CULTURE, Routine 05/13/2022 12:30 Frequency Urinary Results for AEROBIC + SUSC, PM CDT this procedu re URINE are in the results section. HUMAN CHORIONIC Routine 05/13/2022 12:07 Surveillance Results for GONADOTROPIN (HCG), PM CDT Intrauterine this pro cedure MAR[facility], Device are in the results section. from Last 3 Months Results Splint Application (05/26/2022 4:32 PM CDT) Narrative Jeaneth Earl P.A.-C., M.S. - 4:32 PM CDT Jeaneth Earl P.A.-C., M.S. ? 05/26/2022 ??4:35 PM Splint Application Performed by: Jeaneth Earl P.A.-C., M. S. Authorized by: Jeaneth Earl P.A.-C., M .S. PROCEDURE DETAILS Immobilization: ??Brace Brace type: ankle [...] lower leg and ankle, nonspecific. Jeaneth Earl P.A.-C. IMG DIAGNOSTIC IMAGING PROCE SANDRINE US OB First Trimester and Transvaginal (05/13/2022 [...] Unknown, NGA: N/A INTRAUTERINE Pole: Not seen, [place] Length: N/A Gestational Sac: Normal Yolk Sac: [...] Unknown, NGA: N/A INTRAUTERINE Pole: Not seen, [place] Length: N/A Gestational Sac: Normal Yolk Sac: [...] Rusty Guevara M.D. IMG OB US PROCEDURES OK REMOVAL OF INTRAUTERINE DEVICE (05/13/2022 1:15 PM [...] Code Phon e Number MMODAL MMODAL NA (ABNORMAL) Bacterial Culture, Aerobic + Susc, Urine [...] - GENE RAL ORDERABLES Performing Organization Address City/[facility] Phon e Number [facility]- [address] [place] [address] [phone] [facility] [address] [place] [address] System in [address] (ABNORMAL) Urinalysis with Microscopic: (05/13/2022 12:30 PM CDT) Analysis Performed At Patho logist Time Signature Source Urine, Urine, 05/13/2022 [facility] [...] 8.0 05/13/2022 12:51 PM CDT [facility] Specific [place] >=1.030 1.001 - 1.035 05/13/2022 12:51 PM [...] M.D. LAB URINE ORDERABLES Performing Organization Address City/State/ZIP Code Phon e Number [facility]- [address] [place], [place] [address] [address] [place] [address] System in [place] [address] (ABNORMAL) hCG (Human Chorionic Gonadotropin), Quantitative, (05/13/2022 12:07 PM CDT) Analysis Performed At Patho logist Time Signature HCG, [address] (H) <5 IU/L 05/13/2022 [facility] Quantitative, 1:11 PM CDT , P Specimen Anatomical Collection Method Collection Time Receive d Time (Source) Location / / Volume Laterality Blood (Blood, 05/13/2022 12:07 05/13/2022 Venous) PM CDT 12:21 PM CDT Rusty Guevara M.D. LAB BLOOD ADD-ON Performing Organization Address City/State/ZIP Code Phon e Number [facility]- [address] [place], [place] [address] [place] [address] System in [place] [address] from Last 3 Months Insurance Payer Benefit Plan Subscriber ID Effective Dates Phone Address Type / Group MEDICA [facility] [id number] 2018-Tana [phone] [address] X [id number] PPO EMPLOYEE PLAN t [address] [id number] (Home) [place] [address] (Work) Advance Directives For more information, please contact: [phone] Latest Code Status on File Code Status Date Activated Date Inactivated Comments Full Code 11/11/2017 1:43 PM 11/12/2017 11:40 AM Question Answer Comments Full Code: Discussed Code Status History Code Status Date Activated Date Inactivated Comments Full Code 11/08/2017 4:46 PM 11/08/2017 8:25 PM Question Answer Comments Full Code: Discussed Full Code 11/08/2017 2:56 PM 11/08/2017 4:46 PM Question Answer Comments Full Code: Discussed Full Code 09/08/2017 6:39 PM 09/09/2017 2:49 PM Question Answer Comments Full Code: Not Discussed Due to: Not medically appropriate Care Teams Check Cashier Relationship Specialty Start Date End Date Alberto Locke M.D. PCP - General Family Medicine 04/27/19 [address] [place] [phone]
--- OUTSIDE RECORDS SUMMARY | 2022-06-29 09:23 | XMS_ITS | Encounter Summary ---
:1985 Author Organization [facility] Address [address] [place] [address] Care Team Providers Name Role Phone Alberto Locke M.D. Primary Care Provider Encounter Details Date Type Department Care Team Description 05/13/2022 Orders Only Department of [place], Surveillance Obstetrics and Rusty Santiago M.D. Intrauterine Device Gynecology in [facility] [address] (Primary Dx) [place] [address] [address] [place] [address] Social History Tobacco Use Types Packs/Day Years [...] or relatives? How often do you attend bahai or episcopal More than 4 time s per year 07/09/2020 services? 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 PCP - General Family Medicine 04/27/19 [address] [place] [phone] documented as of this encounter
--- OUTSIDE RECORDS SUMMARY | 2022-06-29 09:23 | XMS_ITS | Encounter Summary ---
:1985 Author Organization [facility] Address [address] [place] [address] Care Team Providers Name Role Phone Alberto Locke M.D. Primary Care Provider Encounter Details Date Type Department Care Team Description 05/13/2022 Hospital Department of [place], Surveillance Encounter Laboratory Oluwafunmilayo O, Intrauteri ne Device Medicine in [address] [phone] [phone] Social History Tobacco Use Types Packs/Day Years [...] or relatives? How often do you attend faith or advent More than 4 time s per year 07/09/2020 services? Do you belong to any clubs or organizations No 04/19/2019 such as faith groups, unions, fraternal or athletic groups, or [...] Name Priority Date/Time Associated Diagnosis Comme nts HUMAN CHORIONIC Routine 05/13/2022 12:07 Surveillance Results for this GONADOTROPIN (HCG), PM CDT Intrauterine Device p rocedure are in [facility], the results section. documented in this encounter Results (ABNORMAL) hCG (Human Chorionic Gonadotropin), Quantitative, (05/13/2022 12:07 PM CDT) Analysis Performed At Patho logist Time Signature HCG, [address] (H) <5 IU/L 05/13/2022 [facility] Quantitative, 1:11 PM CDT , P Specimen Anatomical Collection Method Collection Time Receive d Time (Source) Location / / Volume Laterality Blood (Blood, 05/13/2022 12:07 05/13/2022 Venous) PM CDT 12:21 PM CDT Rusty Guevara M.D. 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 PCP - General Family Medicine 04/27/19 [address] [place] [address] documented as of this encounter
--- OUTSIDE RECORDS SUMMARY | 2022-06-29 09:24 | XMS_ITS | Encounter Summary ---
:1985 Author Organization [facility] Address [address] [place] [address] Care Team Providers Name Role Phone Alberto Locke M.D. Primary Care Provider Reason for Visit Reason Comments Vomiting Diarrhea COVID Nurse Line Encounter Details Date Type Department Care Team Description 02/17/2022 Nurse Triage Department of [facility] Gina Su V omiting; Diarrhea; Medicine, [place] O, R.N. COVID Nurse Line Clinic, in [place], [address] [place] [address] [address] [facility] [address] [place] [address] Social History Tobacco Use Types [...] or relatives? How often do you attend tenriism or congregational More than 4 time s per year 07/09/2020 services? Do you belong to any clubs or organizations No 04/19/2019 such as tenriism groups, unions, fraternal or athletic groups, or [...] this encounter Miscellaneous Notes Telephone Encounter - Gina Su R.N. - 02/17/2022 9:09 AM CDT Chief Complaint / Reason for Call Patient is a 36 y.o. female calling regarding Vomiting, Diarrhea, and COVID Nurse Line. Assessment Concern: Nausea and Vomiting (once) this morning. She has had diarrhea for one month Present for: 1.5 months of diarrhea, one hour of vomiting Home cares tried: Nothing Calling to request: Appointment The recommended disposition is See a health care provider within 3 days. Patient was warm transferred to [place] at the clinic for further assistance. Reason for Disposition ? ? [1] MILD vomiting with diarrhea AND [2] present > 5 days Protocols used: [id number] Care Advice Patient/Caregiver understands and will follow care advice?: Yes, able to teach back SEE PCP WITHIN 3 DAYS: * You need to be seen within 2 or 3 days. CLEAR LIQUIDS: * Try to sip small amounts (1 tablespoon or 15 ml) of liquid frequently (every 5 minutes) for 8 hours, rather than trying to drink a lot of liquid all at one time. * Sip water or a 1/2 strength sports drink (e.g., Gatorade or Powerade). * Other options: 1/2 strength flat lemon-tangirnaq soda or yenni stewart. * After 4 hours without vomiting, increase the amount. SOLID FOOD: * You may begin eating bland foods after 8 hours without vomiting. * Start with saltine crackers, white bread, rice, mashed potatoes, cereal, applesauce, etc. * You can resume a normal diet in 24-48 hours. CALL BACK IF: * Vomit contains bile (green color) * Constant stomach pain lasting more than 2 hours * Signs of dehydration (e.g., no urination over 12 hours, very lightheaded) * You become worse COVID-19 Nurse Line Screening ASSESSMENT Initial Screening Pathway Select appropriate pathway: : Adult In the last 48 hours, have you had a fever* OR symptoms that are unrelated to a preexisting illness?: New nausea, New vomiting Date of symptom onset: 02/17/22 COVID Symptomatic Screening Do you have any of the following urgent symptoms?: No urgent symptoms noted (Continue Screening) Have you received a COVID-19 vaccine in the last 72 hours? : No vaccine received (Continue Screening) Have you had close contact* with a person who has tested positive with COVID-19 in the past 14 days?: No (Continue Screening) Have you tested positive for COVID-19 in the last 45 days?: Yes. Testing for COVID-19 is not indicated at this time. (Continue Screening for Additional Testing) Additional Screening for Influenza, RSV and Strep Select appropriate region: : Rew Are all of the following Strep criteria met? : No, all criteria are not met. No further testing indicated. (End Screening) Symptom Onset Date of symptom onset: 02/17/22 Testing Recommendation Endpoint Is testing recommended? : Not recommended to test Further Triage Needs Any further triage needs? : No further concerns noted. PLAN Endpoint recommendation: Testing not indicated at this time Standard Care Points -Get a COVID -19 vaccine as soon as you can if not fully vaccinated. -Wash hands frequently with soap and water, use hand pump runner if soap and water aren't available. -Wear a mask over your nose and mouth to help protect yourself and others if not fully vaccinated and having no symptoms -Stay 6 feet between yourself and others who don't live with you. -Avoid crowds and poorly ventilated indoor spaces. -Seek emergent care if any of the following occur Trouble breathing Bluish lips or face Persistent pain or pressure in the chest New confusion or inability to rouse. -Notify your regular care provider of any new or worsening symptoms. Symptomatic Carepoints: All symptomatic patients, even those who are up to date with COVID-19 vaccinations, should isolate pending COVID-19 testing result received. Stay home and separate yourself fromothers and stay in a specific sick room if able. Wear a mask if you have to be around others. Avoid sharing personal or household items. Rest. Hydrate. Take Acetaminophen/Ibuprofen as needed to control fever and muscles aches. Use over the counter medications as needed for other symptoms. 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 PCP - General Family Medicine 04/27/19 [address] [place] [address] documented as of this encounter
--- OUTSIDE RECORDS SUMMARY | 2022-06-29 09:24 | XMS_ITS | Encounter Summary ---
:1985 Author Organization [facility] Address [address] [place] [address] Care Team Providers Name Role Phone Alberto Locke M.D. Primary Care Provider Reason for Visit Reason Comments Sore Throat Shortness of Breath Encounter Details Date Type Department Care Team Description 05/19/2021 Emergency [place] [facility] Berny Gacria, Tonsi llitis Acute Department M.DBrittaney (Primary Dx) [address] [facility] [address] [place] [phone] (Wo rk) Social History Tobacco Use Types [...] How often do you attend taoist or confucianist More than 4 time s per year [...] Sign Reading Time Taken Comments Blood Pressure 125/74 05/19/2021 9:30 PM CDT Pulse 86 05/19/2021 10:45 PM CDT Temperature 36.6 ??C (97.9 ??F) 05/19/2021 9:25 PM CDT Respiratory Rate 19 05/19/2021 11:15 PM CDT Oxygen Saturation 94% 05/19/2021 10:45 PM CDT Inhaled Oxygen Concentration - - Weight 126 kg (277 lb 1.9 oz) 05/19/2021 9:26 PM CDT Height - - Body Mass Index 50.69 04/12/2021 8:38 PM CDT documented in this encounter Discharge Instructions Discharge InstructionsBerny Garcia M.D. - 05/19/2021 11:20 PM CDT Plenty of rest and fluids. Tylenol or ibuprofen for any fever or pain AttachmentsThe following attachments cannot be sent through Care Everywhere. Tonsillitis (Azeri)documented in this encounter Medications at Time of Discharge Medication Sig Dispensed Refills Start Date End Date acetaminophen Take 1-2 tablets by 0 06/24/2017 (for_TYLENOL) 500 mg mouth every 6 (six) tablet hours as needed. levonorgestreL (MIRENA) 1 each by 0 20 mcg/24 hours (6 yrs) intrauterine route 52 mg IUD continuously. atenoloL (TENORMIN) 25 Take 1 tablet (25 mg 30 tablet 2 11/04/2021 mg tablet total) by mouth daily. azithromycin (ZITHROMAX) 500 mg on day 1, 6 tablet 0 05/1911/04/2021 250 mg tablet followed by 250 mg once daily for 4 days. naproxen (NAPROSYN) 500 TAKE ONE TABLET BY 60 tablet 0 04/2411/04/2021 mg tablet MOUTH TWICE A DAY NEEDED FOR PAIN omeprazole Take 40 mg by mouth 0 11/04 (for_PriLOSEC) 40 mg every morning before capsule breakfast. Reflux/GERD documented as of this encounter ED Notes Berny Garcia M.D. 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 However starting 3 days ago she developed a sore throat and has since developeda dry cough and a sensation of dyspnea over O2 sats are 99%. No change in taste or smell and no diffuse myalgias. No lower extremity edema or calf tenderness and she admits to some diarrhea several days ago but none currently and no nausea or vomiting or abdominal pain. She has no chest pain but states that it does feel as though she is not breathing well and that she might stop breathing at times. REVIEW OF SYSTEMS Constitutional: Negative for chills, diaphoresis and fever. HENT: Positive for sore throat. Negative for congestion and rhinorrhea. Eyes: Negative for discharge and redness. Respiratory: Positive for cough and shortness of breath. Cardiovascular: Negative for chest pain, palpitations and leg swelling. Gastrointestinal: Negative for abdominal pain, nausea and vomiting. Endocrine: Negative. Genitourinary: Negative. Musculoskeletal: Negative for back pain, gait problem and extremity pain. Skin: Negative for color change and rash. Allergic/Immunologic: Negative for environmental allergies and immunocompromised state. Neurological: Negative for speech difficulty and weakness. Hematological: Negative for adenopathy. Does not bruise/bleed easily. Psychiatric/Behavioral: Negative for confusion and decreased concentration. OBJECTIVE Initial Vitals Temperature Pulse Rate Heart Rate Resp Rate Blood Pressure SpO2 05/19/21212405/19/21212205/19/21212305/19/21212305/19/21212905/19/212122 36.6 ??C 91 86 12 125/74 98 % Pain Score 05/19/212128 5 - Moderate pain PHYSICAL EXAMINATION Constitutional: Nursing note and vitals reviewed. She appears not lethargic. No distress. HENT: Head: Normocephalic and atraumatic. Right Ear: Tympanic membrane normal. Left Ear: Tympanic membrane normal. Nose: Nose normal. Mouth/Throat: Mucous membranes are moist. Dental: Good dentition. Mild erythema of the tonsils with some white exudate present. Eyes: Conjunctivae and EOM are normal. Pupils are equal, round, and reactive to light. Neck: Neck supple. Cardiovascular: Normal rate, regular rhythm, S1 normal, S2 normal and normal heart sounds. Pulmonary/Chest: Effort normal and breath sounds normal. There is normal air entry. No tachypnea. Norespiratory distress. Expiration is no prolonged expiration. Air movement is not decreased. She exhibits no retraction. Abdominal: Soft. Bowel sounds are normal. There is no abdominal tenderness. There is no rebound and no guarding. Musculoskeletal: General: No tenderness, deformity or edema. Normal range of motion. Cervical back: Normal range of motion and neck supple. Neurological: Alert and oriented to person, place, and time. Skin: Skin is warm, dry and normal color. She is not diaphoretic. Psychiatric: She has a normal mood and affect. Behavior is normal. Thought content normal. ASSESSMENT/PLAN IMPRESSION AND PLAN Patient presents with sore throat as well as dry cough and not feeling well for the last few days. Fortunately her chest x-ray is clear and rapid strep is negative. However findings are consistent withtonsillitis. Will start a Z-Kirit as directed and she will follow up as an ED Course as of May 19 2320 Mon May 19, [id number] Last was 6.1 White Blood Cell Count(!): 12.6 2220 Chest x-ray is clear 2231 D-Dimer, P: <220 2316 Group A Strep PCR, Throat: Negative Final Diagnoses: as of May 19 2320 Tonsillitis Acute Berny Garcia M.D. 05/19/212320 Dawit Saleem II, RMarcos. - 05/19/2021 9:25 PM CDT Patient has a sore throat and a some shortness of breath, body aches that has been going on since Wednesday. Dawit Saleem II, R.N. 05/19/212127 documented in this encounter Plan of Treatment Scheduled Procedures Name Priority Associated Diagnoses Date/Time COLONOSCOPY Diarrhea documented as of this encounter Procedures Procedure Name Priority Date/Time Associated Comments Diagnosis DX CHEST PORTABLE 1 RAD - Routine 05/19/2021 10:19 Res ults for VIEW (most inpatients PM CDT this proced ure and all are in the outpatients) results section. D-DIMER, P STAT 05/19/2021 9:45 Results for PM CDT this procedure are in the results section. CBC WITH STAT 05/19/2021 9:45 Results for DIFFERENTIAL, B PM CDT this procedu re are in the results section. COMPREHENSIVE STAT 05/19/2021 9:45 Results for METABOLIC PANEL, S/P PM CDT this pr ocedure are in the results section. SARS CORONAVIRUS-2 STAT 05/19/2021 9:44 Result s for RNA, V PM CDT this procedure are in the results section. GROUP A STREP PCR, STAT 05/19/2021 9:44 Result s for THROAT PM CDT this procedure are in the results section. documented in this encounter Results DX Chest Portable 1 View (05/19/2021 10:19 PM CDT) Anatomical Region Laterality Modality Chest, Thoracic RST LOS, Thoracic ARZ LOS, Thoracic N/A Computed Radiography FLA LOS Specimen (Source) Anatomical Collection Method Collection Time Re ceived Time Location / / Volume Laterality 05/19/2021 10:46 PM CDT Impressions 05/19/2021 10:47 PM CDT Normal heart size. No consolidation, pleural effusion, or pneumothorax. No other concerning change from chest CTA from 04/12/2019. Narrative 05/19/2021 10:47 PM CDT EXAM: DX CHEST PORTABLE 1 VIEW Procedure Note Parth Walton M.D. - 05/19/2021Formatt ing of this note might be different from the original. EXAM: DX CHEST PORTABLE 1 VIEW IMPRESSION: Normal heart size. No consolidation, ple ural effusion, or pneumothorax. No other concerning change from chest CTA from 04/12/2019. Berny Garcia M.D. IMG DIAGNOSTIC IMAGING PROCE SANDRINE D-Dimer (05/19/2021 9:45 PM CDT) athologist Signature D-Dimer, P <220 <=500 ng/mL 05/19/2021 [facility] FEU 10:22 PM CDT Comment: ----ADDITIONAL INFORMATION---- D-dimer values less than or equal to 500 ng/mL fibrinogen equivalent units (FEU) may be used in co njunction with clinical pre-test probability to exclude deep vein thrombosis (DVT) and/or pulmonary emboli sm (PE). Specimen Anatomical Collection Method Collection Time Receive d Time (Source) Location / / Volume Laterality Blood (Blood, 05/19/2021 9:45 PM 05/19/20 9:58 Venous) CDT PM CDT Berny Garcia M.D. LAB BLOOD ADD-ON Performing Organization Address City/State/ZIP Code Phon e Number [facility]- [address] [place] [address] [phone] [place] [address] System in [place] [address] [place] [address] (ABNORMAL) Comprehensive Metabolic Panel (05/19/2021 9:45 PM CDT) athologist Signature Potassium, P 4.2 3.6 - 5.2 05/19/2021 [facility] mmol/L 10:20 PM CDT Sodium, P 141 135 - 145 05/19/2021 [facility] mmol/L 10:20 PM CDT Chloride, P 104 98 - 107 05/19/2021 [facility] mmol/L 10:20 PM CDT Bicarbonate, P 30 (H) 22 - 29 05/19/2021 [facility] mmol/L 10:20 PM CDT Anion Gap, P 7 7 - 15 05/19/2021 [facility] 10:20 PM CDT BUN (Blood Urea 17 6 - 21 05/19/2021 [facility] Nitrogen), P mg/dL 10:20 PM CDT Creatinine 0.81 0.59 - 05/19/2021 [facility] 1.04 mg/dL 10:20 PM CDT eGFR-Black/Afri >90 >=60 05/19/2021 [facility] can Citizen Of [place] mL/min/BSA 10:20 PM CDT Comment: ----ADDITIONAL INFORMATION---- Estimated GFR calculated using the 2009 CKD_EPI creatinine equation. eGFR Non-Black/ >90 >=60 mL/min/BSA 05/19/2021 10:20 PM CDT [facility] Comment: ----ADDITIONAL INFORMATION---- Estimated GFR calculated using the 2009 CKD_EPI creatinine equation. Calcium, Total, P 9.9 8.6 - 10.0 mg/dL 05/19/2021 10:2 0 PM CDT [facility] Glucose, P 100 70 - 140 mg/dL 05/19/2021 10:20 PM CDT [facility] Protein, Total, P 7.4 6.3 - 7.9 g/dL 05/19/2021 10:20 PM CDT [facility] Albumin, P 3.7 3.5 - 5.0 g/dL 05/19/2021 10:20 PM CDT [facility] Aspartate Aminotransferase 16 8 - 43 U/L 05/19/2021 1 0:20 PM CDT [facility] (AST), P Alkaline Phosphatase, P 61 35 - 104 U/L 05/19/2021 10 :20 PM CDT [facility] Alanine Aminotransferase (ALT), 17 7 - 45 U/L 021 10:20 PM CDT [facility] P Bilirubin, Total, P 0.2 <=1.2 mg/dL 05/19/2021 10:20 P M CDT [facility] Specimen Anatomical Collection Method Collection Time Receive d Time (Source) Location / / Volume Laterality Blood (Blood, 05/19/2021 9:45 PM 05/19/20 9:58 Venous) CDT PM CDT Berny Garcia M.D. LAB BLOOD ADD-ON Performing Organization Address City/State/ZIP Code Phon e Number [facility]- [address] [place], [place] [address] [place] [address] System in [place] [address] (ABNORMAL) CBC with Differential, Blood (05/19/2021 9:45 PM CDT) [facility] Method Time Signature Hemoglobin 14.0 11.6 - 05/19/2021 [facility] 15.0 g/dL 10:01 PM CDT Hematocrit 44.4 35.5 - 05/19/2021 [facility] 44.9 % 10:01 PM CDT Erythrocytes 4.96 3.92 - 05/19/2021 [facility] 5.13 10:01 PM CDT x10(12)/L MCV 89.5 78.2 - 05/19/2021 [facility] 97.9 fL 10:01 PM CDT RBC Distrib Width 13.8 12.2 - 05/19/2021 [facility] 16.1 % 10:01 PM CDT Platelet Count 276 157 - 371 05/19/2021 [facility] x10(9)/L 10:01 PM CDT Leukocytes 12.6 (H) 3.4 - 9.6 05/19/2021 [facility] x10(9)/L 10:01 PM CDT Neutrophils 9.44 (H) 1.56 - 05/19/2021 [facility] 6.45 10:01 PM CDT x10(9)/L Lymphocytes 2.22 0.95 - 05/19/2021 [facility] 3.07 10:01 PM CDT x10(9)/L Monocytes 0.73 0.26 - 05/19/2021 [facility] 0.81 10:01 PM CDT x10(9)/L Eosinophils 0.15 0.03 - 05/19/2021 [facility] 0.48 10:01 PM CDT x10(9)/L Basophils 0.04 0.01 - 05/19/2021 [facility] 0.08 10:01 PM CDT x10(9)/L Specimen Anatomical Collection Method Collection Time Receive d Time (Source) Location / / Volume Laterality Blood (Blood, 05/19/2021 9:45 PM 05/19/20 9:58 Venous) CDT PM CDT Berny Garcia M.D. LAB BLOOD ADD-ON Performing Organization Address City/State/[facility] Phon e Number [facility]- [address] [place], [place] [address] [place] [address] System in [place] [address] SARS Coronavirus-2 RNA, V (05/19/2021 9:44 PM CDT) Patholo gist Method Time Signature SARS-CoV-2 Nasopharynx 05/20/2021 [facility] Specimen 3:11 PM CDT Source SARS CoV-2 Undetected Undetected 05/20/2021 [facility] RNA, TMA 3:11 PM CDT Comment: SARS-CoV-2 RNA absent. This result does not rule out COVID-19 in the patient, as the sensitivity of the test depends o n the timing of the specimen collection and the quality of the specim en. Result should be correlated with patient's history and clinical presentat ion. ----ADDITIONAL INFORMATION---- This molecular amplification test was pe rformed using the Aptima SARS-CoV-2 assay ([employer] on the Electronic Compute Systemss tem under emergency use authorization (EUA) by the U.S. Food and Drug Administ ration. Fact sheets for this EUA assay can be fo und at the following links: For Healthcare Providers: https://www.fd a.gov/media/634987/download For Patients: https://www.fda.gov/media/ 610270/download Specimen Anatomical Collection Method Collection Time Receive d Time (Source) Location / / Volume Laterality Varies 05/19/2021 9:44 PM CDT 11:00 AM CDT Berny Garcia M.D. LAB MICROBIOLOGY - GENERAL O RDERABLES Performing Organization Address City/State/ZIP [facility] [place] [facility]- [address] [place] [address] [phone] [facility] [place] [address] System in [address] Streptococcus Group A, Molecular Detection, PCR, Throat (05/19/2021 9:44 PM CDT) athologist Signature Group A Strep Negative Negative 05/19/2021 [facility] PCR, Throat 11:16 PM CDT Specimen Anatomical Collection Method Collection Time Receive d Time (Source) Location / / Volume Laterality Varies (Throat) 05/19/2021 9:44 PM 2020 9:49 CDT PM CDT Berny Garcia M.D. LAB MICROBIOLOGY - GENERAL O RDERABLES Performing Organization Address City/State/ZIP Code Phon e Number [facility]- [address] [place], [place] [address] [place] [address] System in [place] [address] documented in this encounter Visit Diagnoses Diagnosis Tonsillitis Acute - Primary documented in this encounter Additional Health Concerns Infection Onset Date Last Indicated Resolved Time COVID19 Pending 05/19/2021 05/19/2021 05/19/2021 10:24 PM CDT COVID19 Pending 05/19/2021 05/19/2021 05/20/2021 3:13 PM CDT Assessment Noted Time PHQ-9 Depression Total Score: 9 07/08/2020 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 PCP - General Family Medicine 04/27/19 [address] [place] [phone] documented as of this encounter
--- OUTSIDE RECORDS SUMMARY | 2022-06-29 09:24 | XMS_ITS | Encounter Summary ---
:1985 Author Organization [facility] Address [address] [place] [address] Care Team Providers Name Role Phone Alberto Locke M.D. Primary Care Provider Reason for Referral Specialty Diagnoses / Procedures Referred By Contact Refer red To Contact Alberto Locke M.D. [facility] [address] [place] [address] Referral ID Status Reason Start Date Expiration Date Visits Requ ested Visits Authorized OGRAPHY SALES ASSOCIATE Encounter Details Date Type Department Care Team Description 07/15/2021 Orders Only [facility] PCP [facility] Frankie Locke M.D. [address] [place], [place] [phone] (Wo rk) Social History Tobacco Use Types [...] or relatives? How often do you attend uatsdin or buddhist More than 4 time s per year 07/09/2020 services? Do you belong to any clubs or organizations No 04/19/2019 such as uatsdin groups, unions, fraternal or athletic groups, or [...] Name Type Priority Associated Order Schedule Diagnoses Covid immunization Outpatient Referral Routine Ex pected: office visit Booster 021 (Approximate), Expires: 07/15/2022 documented as of this encounter Visit Diagnoses Not on filedocumented in this encounter Additional Health Concerns Assessment Noted Time PHQ-9 Depression Total Score: 9 07/08/2020 3:59 PM PHOTOGRAPHY SALES ASSOCIATE documented as of this encounter Care Teams Tube Closing Machine Operator Relationship Specialty Start Date End Date Alberto Locke M.D. PCP - General Family Medicine 04/27/19 [address] [place] [phone] documented as of this encounter
--- OUTSIDE RECORDS SUMMARY | 2022-06-29 09:24 | XMS_ITS | Encounter Summary ---
:1985 Author Organization [facility] Address [address] [place] [address] Care Team Providers Name Role Phone Alberto Locke M.D. Primary Care Provider Reason for Visit Reason Comments Leg Swelling COVID Nurse Line Encounter Details Date Type Department Care Team Description 11/04/2021 Nurse Triage Department of [facility] Rylee Calvert, Leg Swe lling; [facility], [facility], in [place], [address] [place] [address] [id number] [place] [address] [phone] Social History Tobacco Use Types Packs/Day Years [...] or relatives? How often do you attend jain or holiness More than 4 time s per year 07/09/2020 services? Do you belong to any clubs or organizations No 04/19/2019 such as jain groups, unions, fraternal or athletic groups, or [...] to pay for the very basics like RRsat hat hard 07/09/2020 food, housing, medical care, [...] this encounter Miscellaneous Notes Telephone Encounter - Enrike Rylee Bustillos R.N. - 11/04/2021 10:21 AM CDT Chief Complaint / Reason for Call Patient is a 35 y.o. female calling regarding Leg Swelling and COVID Nurse Line. Assessment Concern: Lightheaded and swelling to the feet and legs Present for: A few weeks Home cares tried: Elevation and tylenol Calling to request: An appointment The recommended disposition is See a health care provider within 4 hours. Carol has voiced concern for increased bilateral swelling to the lower legs and feet , worse on the right leg. Right leg also has cramping off and on. She states she has a physical job and on her feet working 12 hour shifts. Denies any chest pain or changes in breathing. Care Advice Patient/Caregiver understands and will follow care advice?: Yes, able to teach back CALL EMS IF: * Chest pain or shortness of breath occurs. SEE HCP WITHIN 4 HOURS (OR PCP TRIAGE): SOURCES OF CARE: * ED: Patients who may need surgery or hospital admission need to be sent to an ED. So do most patients with serious symptoms or complex medical problems. * UCC: Some UCCs can manage patients who are stable and have less serious symptoms (e.g., minor illnesses and injuries). The triager must know the UCC capabilities before sending a patient there. If unsure, call ahead. * OFFICE: If patient sounds stable and not seriously ill, consult PCP (or follow your office policy)to see if patient can be seen NOW in office. Patient was warm transferred to [facility] at the clinic for further assistance. COVID-19 Nurse Line Screening ASSESSMENT Initial Screening Pathway Select appropriate pathway: : Adult In the last 48 hours, have you had a fever* OR symptoms that are unrelated to a preexisting illness?: No symptoms noted (Continue Screening) COVID Asymptomatic Screening Have you had close contact* with a person who has tested positive with COVID-19 in the past 14 days?: No (Continue Screening) Have you tested positive for COVID-19 in the last 90 days?: No (Continue Screening) Have you been advised to undergo testing or are you requesting testing?: No, testing for COVID-19 isnot indicated (End Screening) Testing Recommendation Endpoint Is testing recommended? : Not recommended to test Further Triage Needs Any further triage needs? : No further concerns noted. PLAN Endpoint recommendation: Testing not indicated at this time Standard Care Points -Get a COVID -19 vaccine as soon as you can if not fully vaccinated. -Wash hands frequently with soap and water, use hand mine analyst if soap and water aren't available. -Wear [...] provider of any new or worsening symptoms. Asymptomatic without exposure Carepoints: Testing is not recommended at this time. If you become symptomatic, please call back for additional screening. Education: Patient/caregiver able to teach back Patient agreeable to plan of care: Yes The following references were used: [facility] novel coronavirus (COVID- 19) resources Reason for Disposition ??? 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 PCP - General Family Medicine 04/27/19 [address] [phone] documented as of this encounter
--- OUTSIDE RECORDS SUMMARY | 2022-06-29 09:24 | XMS_ITS | Encounter Summary ---
:1985 Author Organization [facility] Address [address] [place] [address] Care Team Providers Name Role Phone Alberto Locke M.D. Primary Care Provider Reason for Referral Outpatient (Routine) - Authorized Specialty Diagnoses / Procedures Referred By Contact Refer red To Contact Diagnoses Edema Dyspnea On Exertion Shortness Of Breath Nichole Maria M.D. [facility] Procedures ECG 12 Lead [address] [place] [address] 267 Referral ID Status Reason Start Date Expiration Date Visits V isits Requested Authorized [id number] Authorized 11/04/2021 11/04/2022 1 1 Outpatient (Routine) - Closed Specialty Diagnoses / Procedures Referred By Contact Refer red To Contact Diagnoses Edema Dyspnea On Exertion Shortness Of Breath Nichole Maria M.D. [facility] Procedures DX Chest AP or PA and Lateral 2 Views [address] [place] [address] Referral ID Status Reason Start Date Expiration Date Visits Requ ested Visits Authorized [id number] Closed 11/04/2021 11/04/2022 1 1 Reason for Visit Reason Comments Edema Bilateral lower legs, with d izziness. Ongoing x several weeks Appointment Request (Routine) - Closed Specialty Diagnoses / Procedures Referred By Contact Refer red To Contact Family Medicine Referral ID Status Reason Start Date Expiration Date Visits Requ ested Visits Authorized [id number] Closed 11/04/2021 11/04/2022 1 1 Encounter Details Date Type Department Care Team Description 11/04/2021 Office Visit Department of Nichole Maria, Edema ( Primary Dx); Internal Medicine in M.D. Dyspnea On Exertion; [place], [place] [address] Shortness Of Breath; [address] [place], [place] Headache New; [place] [address] Apnea Sleep Obstructive [address] [phone] Social History Tobacco Use Types Packs/Day Years Used Date Smoking Tobacco: Some Days Cigarettes 0 0 Smokeless Tobacco: Never Tobacco Cessation: Ready to Quit: No; Co unseling Given: Yes Comments: Smoking 1-2 cigarettes monthly Alcohol Use [...] or relatives? How often do you attend protestant or tenriism More than 4 time s per year 07/09/2020 services? Do you belong to any clubs or organizations No 04/19/2019 such as protestant groups, unions, fraternal or athletic groups, or [...] Sign Reading Time Taken Comments Blood Pressure 136/88 11/04/2021 2:25 PM CDT Pulse 88 11/04/2021 2:25 PM CDT Temperature 36.1 ??C (97 ??F) 11/04/2021 2:25 PM CDT Respiratory Rate - - Oxygen Saturation 98% 11/04/2021 2:25 PM CDT Inhaled Oxygen Concentration - - Weight 159 kg (350 lb 1.5 oz) 11/04/2021 2:25 PM CDT Height 157.5 cm (5' 2.01) 11/04/2021 2:25 PM CDT Body Mass Index 64.02 11/04/2021 2:25 PM CDT documented in this encounter Patient Instructions Patient InstructionsNichole Maria M.D. - 11/04/2021 2:30 PM CDT PLEASE REMEMBER TO GO TO THE LAB AND GET BLOOD WORK DONE TODAY. IN ADDITION, PLEASE GO TO RADIOLOGY FOR YOUR XRAY. YOU ALSO NEED TO GET AN EKG OF THE HEART TODAY. THIS IS DONE IN THE RADIOLOGY DEPARTMENT. documented in this encounter Progress Notes Nichole Maria M.D. - 11/04/2021 2:30 PM CDT SUBJECTIVE CHIEF COMPLAINT / REASON FOR VISIT Carol Cooley is a 35 y.o. female who presents for evaluation of Edema (Bilateral lower legs, with dizziness. Ongoing x several weeks/). HISTORY OF PRESENT ILLNESS She has had MICHELA for years, 14 yrs ago, and has come and gone since then. Had it when , better with bedrest and after . She had second , did not know it, went in for swelling of legs and UPT revealed she was . Had 2nd child then. 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 Then 9 m later - woke up and felt had bad stomach pain like constipation. Had blood in toilet bowl, pain, taken to ER, dilated to 10 and admitted to OB, delivered 3rd child by emergency C section within an hour of betting to [facility]. That was 3 years ago. She has Mirena. She has had period ever since Mirena. No change in period timing or amount - just few days variation, LMP mid September. She has been having MICHELA similar to pregnancies in past - in past 2 weeks. Whole body feels swollen. Has some SOB at rest and has noticed more LOPEZ. Was ill in JUN/JUL, Covid negative, but URI and was same time mom had RSV. She really has had LOPEZ since then. NO chest pain, but occ chest palpitations which is new. She has some orthopnea but no PND. Swelling is there even when she wakes up. She is much more fatigued but no energy to do it. She does question depression and SAD - started seeing therapist last week as a lot going on with social stressors. She does not sleep well. She has had migraines in past. Has had headache recently but not quite the same as usual headaches. Doesn't go away, has been there at least once per week, will last a day vs couple hours. Not related to eating or caffeine. Located in central forehead, band like, tight feeling, annoyance feeling. Not positional, rated 8/10. No alleviating factors except closing her eyes. She has DANIEL - she does not use CPAP, does not have it. Ex- threw it away. No h/o DVT or PE. Smokes PRN, less than 1 PPD - socially. Alcohol - socially. She is sexually active, stable relationship in past 1.5 yrs, protection with IUD, no condom. The following portions of the patient's history were reviewed and updated as appropriate: allergies,current medications, family history, medical history, social history, surgical history and problem list. OBJECTIVE BP 136/88 Pulse 88 Temp 36.1 ??C Ht 157.5 cm Wt (!) 159 kg LMP 10/06/2021 (Approximate) SpO2 98% BMI 64.02 kg/m?? PHYSICAL EXAM Physical Exam GENERAL: In general, patient is an obese well-developed and appears in no acute distress Vitals charted as above HEENT: Normocephalic, atraumatic head. Pupils are equal round and reactive, sclerae white, conjunctivae pink, lids and lashes normal. Ears have normal-appearing auricle and tragus. Tympanic membranes visualized and without erythema. External nose normal in appearance. Mucous membranes are moist. Pharynx is without erythema or exudate. NECK: Supple, no lymphadenopathy or thyromegaly, no carotid bruits appreciated. HEART: Normal S1 and S2 [heart sounds], regular rhythm, [no murmur], no gallop or rub appreciated. LUNGS: [Clear to auscultation, normal respiratory effort] ABDOMEN: Soft, obese, unable to palpate intra-abdominal organs, no CVA tenderness, bowel sounds normal. MUSCULOSKELETAL: Normal muscle mass, no active joint inflammation SKIN: No rash, no jaundice EXTREMITIES - pitting edema bilaterally, right > left, no venous stasis skin changes. No redness or erythema, no palpable cords Labs today: WBC and diff normal; lytes fine - no acidosis; HGB WNL D dimer negative BNP normal which rules again congestive heart failure anything any kind of right ventricular strain from a pulmonary process such as a PE. TSH/T4 normal. ?? EKG per my personal review -for bruit unremarkable. No concerning arrhythmias or atypical ST segmentchanges or OH interval issues. CXR per my personal review, shows a normal heart size, no effusions, no focal pulmonary infiltrate. No pneumothorax.. Formal report to follow. Lab Results Component Value Date TSH 1.2 05/25/2017 ECHO Mar 2019 1. Normal left ventricular chamber size. Calculated ejection fraction 64%. No regional wall motion abnormalities. 2. Normal right ventricular systolic function. 3. Estimated right ventricular systolic pressure 30 mmHg. 4. No significant valvular heart disease. 5. Normal inferior vena cava size with normal inspiratory collapse 6. No pericardial effusion. 7. No previous studies available for comparison. CXR Apr 2021 -normal heart size. No effusion, TTX, consolidation. ASSESSMENT / PLAN #1 Edema Extensive evaluation performed today. Heart failure unlikely based on chest x-ray and normal BNP. DVT/PE considered giving her recent activity but D-dimer was normal making this highly unlikely. In the past when she has had edema in has been when she has been . We did do both a serum hCG in urine test today and both of those are negative for evidence. She was concerned about a possible DVT before in the D-dimer being negative makes this unlikely. Possibility for section highly unlikely as well as she is afebrile on today's exam, normal white count and diff and x-ray does not show any abnormalities. She has had an echocardiogram showing no significant valvular issues. All these findings were reviewed with the patient. We were not able to find any significant abnormality or life-threatening situations at this point in time that could account for her increased lower extremity edema. I do suspect there is a component of venous insufficiency as she does have some pitting present. Recommend avoiding excess salt intake, keeping legs elevated and compression stockings. #2 Dyspnea On Exertion #3 Shortness Of Breath D-dimer unremarkable, chest x-ray normal, no evidence of acid-base disorder, not anemic. Echo unremarkable. EKG and chest x-ray normal. Reassurance given today however this is an ongoing concern certainly follow-up pulmonary function testing could be considered with her PCP. #4 Headache New No meningeal signs on exam, normal white count and afebrile. Suspect benign. Conservative therapies with nmok-pxr-lblgsyw meds, stretching, relaxation ensuring adequate hydration and sleep. documented in this encounter Plan of Treatment Scheduled Procedures Name Priority Associated Diagnoses Date/Time COLONOSCOPY Diarrhea documented as of this encounter Procedures Procedure Name Priority Date/Time Associated Comments Diagnosis ECG Routine 11/04/2021 3:40 PM Edema Results for this CDT Dyspnea On Exert ion procedure are in Shortness Of Breath the resu lts section. TEST, POCT, Routine 11/04/2021 3:31 PM Edema Results for this U (LAB) CDT Dyspnea On Exert ion procedure are in Shortness Of Breath the resu lts section. NT-PRO B-TYPE Routine 11/04/2021 3:23 PM Edema Results for this NATRIURETIC PEPTIDE CDT Dyspnea On E xertion procedure are in (BNP), S Shortness Of Breath the resu lts section. D-DIMER, P Routine 11/04/2021 3:23 PM Edema Results for this CDT Dyspnea On Exert ion procedure are in Shortness Of Breath the resu lts section. CBC WITH Routine 11/04/2021 3:23 PM Edema Results for this DIFFERENTIAL, B CDT Dyspnea On Exert ion procedure are in Shortness Of Breath the resu lts section. HUMAN CHORIONIC Routine 11/04/2021 3:23 PM Edema Result s for this GONADOTROPIN (HCG), CDT procedur e are in MARCI, the results section. THYROID-STIMULATING Routine 11/04/2021 3:23 PM Edema Results for this HORMONE-SENSITIVE CDT Dyspnea On Exe rtion procedure are in (S-TSH) Shortness Of Breath the resu lts section. T4 (THYROXINE), FREE, Routine 11/04/2021 3:23 PM Edema Results for this S CDT Dyspnea On Exert ion procedure are in Shortness Of Breath the resu lts section. BASIC METABOLIC Routine 11/04/2021 3:23 PM Edema Results for this PANEL, S/P CDT Dyspnea On Exert ion procedure are in Shortness Of Breath the resu lts section. documented in this encounter Results DX Chest AP or PA and Lateral 2 Views (11/04/2021 3:58 PM CDT) Anatomical Region Laterality Modality Chest, Thoracic RST LOS, Thoracic ARZ LOS, Thoracic N/A Digital Radiography FLA LOS Specimen (Source) Anatomical Collection Method Collection Time Re ceived Time Location / / Volume Laterality 11/04/2021 4:32 PM CDT Impressions 11/04/2021 4:33 PM CDT Stable chest, no acute cardiopulmonary d isease. Narrative 11/04/2021 4:33 PM CDT EXAM: DX CHEST AP OR PA AND LATERAL 2 VIEWS COMPARISON: 05/19/2021. FINDINGS: Heart size and pulmonary vascu larity are within normal limits. Lungs are clear of infiltrates or effusions. There is no si gnificant interval change compared with 05/19/2021. Procedure Note Dash Knowles Jr., M.D. - 2021 EXAM: DX CHEST AP OR PA AND LATERAL 2 EWS COMPARISON: 05/19/2021. FINDINGS: Heart size and pulmonary vascu larity are within normal limits. Lungs are clear of infiltrates or effusions. There is no si gnificant interval change compared with 05/19/2021. IMPRESSION: Stable chest, no acute cardiopulmonary d isease. Nichole [facility] DIAGNOSTIC IMAGING PROCE [facility] ECG 12 Lead (11/04/2021 3:40 PM CDT) P athologist Signature Ventricular Rate 82 BPM MUSE ECG/Min [place] Interval 146 ms MUSE QRSD Interval 74 ms MUSE QT Interval 360 ms MUSE QTC Interval 420 ms MUSE P [place] 49 degrees MUSE R [place] 55 degrees MUSE T Wave [place] 56 degrees MUSE Specimen Anatomical Collection Method Collection Time Receive d Time (Source) Location / / Volume Laterality 11/04/2021 3:40 PM 2 3:54 CDT PM CDT Impressions MUSE - 11/04/2021 3:54 PM CDT Sinus rhythm Premature ventricular complexes Otherwise normal ECG When compared with ECG of 04-NOV-2017 17 :09, Premature ventricular complexes are now present Reviewed by KAREN Fuchs Narrative This result has an attachment that is no t available. Procedure Note Chavez Patel M.D. - 11/04/2021Format ting of this note might be different from the original. IMPRESSION: Sinus rhythm Premature ventricular complexes Otherwise normal ECG When compared with ECG of 04-NOV-2017 17 :09, Premature ventricular complexes are now present Reviewed by KAREN Fuchs Nichole Maria M.D. ECG ORDERABLES Performing Organization Address City/State/ZIP Code Phon e Number MUSE MUSE NA Test, POCT, Urine (lab) (11/04/2021 3:31 PM CDT) P athologist Signature Negative 11/04/2021 [facility] Test, POCT, U 3:39 PM CDT Specimen Anatomical Collection Method Collection Time Receive d Time (Source) Location / / Volume Laterality Urine (Urine, 11/04/2021 3:31 PM 11/05/19 3:31 Clean Catch) CDT PM CDT Nichole Maria M.D. LAB POCT ORDERABLES - DEVICE Performing Organization Address City/State/ZIP Code Phon e Number [facility]- [address], [place] [address] [facility] [place] [address] System in [place] [address] hCG (Human Chorionic Gonadotropin), Quantitative, (11/04/2021 3:23 PM CDT) P athologist Signature HCG, <0.5 <5 IU/L 11/04/2021 [facility] Quantitative, 4:08 PM CDT , P Comment: Biotin has been identified by the doug saucedo as a potential interfering substance. ??Higher concentr ations of biotin may be found in multivitamins, hair/nail supple ments, and workout supplements. ??If the result does not ma tc clinical observations, repeat testing after patient refrains fr om the use of supplements for at least 12 hours. Specimen Anatomical Collection Method Collection Time Receive d Time (Source) Location / / Volume Laterality Blood (Blood, 11/04/2021 3:23 PM 11/05/19 3:29 Venous) CDT PM CDT Nichole Maria M.D. LAB BLOOD ADD-ON Performing Organization Address City/State/ZIP Code Phon e Number [facility]- [address] [place], [place] [address] [facility] [place] [place] [address] System in [place] [address] [place] T4 (Thyroxine), Free (11/04/2021 3:23 PM CDT) P athologist Signature T4 (Thyroxine), 1.3 0.9 - 1.7 11/04/2021 [facility] Free, P ng/dL 4:03 PM CDT Comment: Biotin has been identified by the doug saucedo as a potential interfering substance. ??Higher concentr ations of biotin may be found in multivitamins, hair/nail supple ments, and workout supplements. ??If the result does not ma tc clinical observations, repeat testing after patient refrains fr om the use of supplements for at least 12 hours. Specimen Anatomical Collection Method Collection Time Receive d Time (Source) Location / / Volume Laterality Blood (Blood, 11/04/2021 3:23 PM 11/05/19 3:29 Venous) CDT PM CDT Nichole Maria M.D. LAB BLOOD ADD-ON Performing Organization Address City/State/ZIP Code Phon e Number [facility]- [address] [place], [place] [address] [facility] [place] [address] System in [place] [address] [place] S-TSH (Thyroid-Stimulating Hormone - Sensitive) (11/04/2021 3:23 PM CDT) athologist Signature TSH, Sensitive 0.9 0.3 - 4.2 11/04/2021 [facility] mIU/L 4:03 PM CDT Specimen Anatomical Collection Method Collection Time Receive d Time (Source) Location / / Volume Laterality Blood (Blood, 11/04/2021 3:23 PM 11/05/19 3:29 Venous) CDT PM CDT Nichole Maria M.D. LAB BLOOD ADD-ON Performing Organization Address City/State/ZIP Code Phon e Number [facility]- [address] [place] [address] [facility] [place] [address] System in [place] [address] [place] [address] [place] D-Dimer (11/04/2021 3:23 PM CDT) athologist Signature D-Dimer, P 492 <=500 ng/mL 11/04/2021 [facility] FEU 3:44 PM CDT Comment: ----ADDITIONAL INFORMATION---- D-dimer values less than or equal to 500 ng/mL fibrinogen equivalent units (FEU) may be used in co njunction with clinical pre-test probability to exclude deep vein thrombosis (DVT) and/or pulmonary emboli sm (PE). Specimen Anatomical Collection Method Collection Time Receive d Time (Source) Location / / Volume Laterality Blood (Blood, 11/04/2021 3:23 PM 11/05/19 3:29 Venous) CDT PM CDT Nichole Maria M.D. LAB BLOOD ADD-ON Performing Organization Address City/State/ZIP Code Phon e Number [facility]- [address] [place], [place] [address] [facility] [place] [address] System in [place] [address] [place] Basic Metabolic Panel (11/04/2021 3:23 PM CDT) athologist Signature Potassium, P 4.3 3.6 - 5.2 11/04/2021 [facility] mmol/L 3:51 PM CDT Sodium, P 139 135 - 145 11/04/2021 [facility] mmol/L 3:51 PM CDT Chloride, P 104 98 - 107 11/04/2021 [facility] mmol/L 3:51 PM CDT Bicarbonate, P 27 22 - 29 11/04/2021 [facility] mmol/L 3:51 PM CDT Anion Gap, P 8 7 - 15 11/04/2021 [facility] 3:51 PM CDT BUN (Blood Urea 9 6 - 21 11/04/2021 [facility] Nitrogen), P mg/dL 3:51 PM CDT Creatinine 0.70 0.59 - 11/04/2021 [facility] 1.04 mg/dL 3:51 PM CDT eGFR-Black/Afric >90 >=60 11/04/2021 [facility] an Lao mL/min/BSA 3:51 PM CDT Comment: ----ADDITIONAL INFORMATION---- Estimated GFR calculated using the 2009 CKD_EPI creatinine equation. eGFR Non-Black/ >90 >=60 mL/min/BSA 11/04/2021 3:51 PM CDT [facility] Comment: ----ADDITIONAL INFORMATION---- Estimated GFR calculated using the 2009 CKD_EPI creatinine equation. Calcium, Total, P 9.1 8.6 - 10.0 mg/dL 11/04/2021 3:51 PM CDT [facility] Glucose, P 113 70 - 140 mg/dL 11/04/2021 3:51 PM CDT [facility] Specimen Anatomical Collection Method Collection Time Receive d Time (Source) Location / / Volume Laterality Blood (Blood, 11/04/2021 3:23 PM 11/05/19 3:29 Venous) CDT PM CDT Nichole Maria M.D. LAB BLOOD ADD-ON Performing Organization Address City/State/ZIP Code Phon e Number [facility]- [address] [place], [place] [address] [facility] [place] [address] System in [place] [address] (ABNORMAL) CBC with Differential, Blood (11/04/2021 3:23 PM CDT) [facility] Method Time Signature Hemoglobin 14.8 11.6 - 11/04/2021 [facility] 15.0 g/dL 3:36 PM CDT Hematocrit 46.0 (H) 35.5 - 11/04/2021 [facility] 44.9 % 3:36 PM CDT Erythrocytes 5.20 (H) 3.92 - 11/04/2021 [facility] 5.13 3:36 PM CDT x10(12)/L MCV 88.5 78.2 - 11/04/2021 [facility] 97.9 fL 3:36 PM CDT RBC Distrib Width 13.3 12.2 - 11/04/2021 [facility] 16.1 % 3:36 PM CDT Platelet Count 297 157 - 371 11/04/2021 [facility] x10(9)/L 3:36 PM CDT Leukocytes 9.6 3.4 - 9.6 11/04/2021 [facility] x10(9)/L 3:36 PM CDT Neutrophils 6.33 1.56 - 11/04/2021 [facility] 6.45 3:36 PM CDT x10(9)/L Lymphocytes 2.32 0.95 - 11/04/2021 [facility] 3.07 3:36 PM CDT x10(9)/L Monocytes 0.65 0.26 - 11/04/2021 [facility] 0.81 3:36 PM CDT x10(9)/L Eosinophils 0.26 0.03 - 11/04/2021 [facility] 0.48 3:36 PM CDT x10(9)/L Basophils 0.03 0.01 - 11/04/2021 [facility] 0.08 3:36 PM CDT x10(9)/L Specimen Anatomical Collection Method Collection Time Receive d Time (Source) Location / / Volume Laterality Blood (Blood, 11/04/2021 3:23 PM 11/05/19 3:29 Venous) CDT PM CDT Nichole Maria M.D. LAB BLOOD ADD-ON Performing Organization Address City/State/ZIP Code Phon e Number [facility]- [address] [place], [place] [address] [facility] [place] [address] System in [place] [address] [place] NT-Pro B-Type Natriuretic Peptide (BNP) (11/04/2021 3:23 PM CDT) athologist Signature NT-Pro BNP 125 <=140 pg/mL 11/04/2021 [facility] 4:03 PM CDT Comment: NT-proBNP values less than 300 pg/mL hav e a 99% negative predictive value for excluding acute congestive heart maggi lure. A cutoff of 1200 pg/mL for patients with an eGFR<60 yields a diagno stic sensitivity and specificity of 89% and 72% for acute congestive heart f ailure. ??NT-proBNP values greater than 450 pg/mL are consistent with CHF i n adults under 50 years of age. Biotin has been identified by the doug saucedo as a potential interfering substance. ??Higher concentr ations of biotin may be found in multivitamins, hair/nail supple ments, and workout supplements. ??If the result does not ma [facility] clinical observations, repeat testing after patient refrains fr om the use of supplements for at least 12 hours. Specimen Anatomical Collection Method Collection Time Receive d Time (Source) Location / / Volume Laterality Blood (Blood, 11/04/2021 3:23 PM 11/05/19 3:29 Venous) CDT PM CDT Nichole Maria M.D. 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 PCP - General Family Medicine 04/27/19 [address] [place] [address] documented as of this encounter
--- OUTSIDE RECORDS SUMMARY | 2022-06-29 09:24 | XMS_ITS | Encounter Summary ---
:1985 Author Organization [facility] Address [address] [place] [address] Care Team Providers Name Role Phone Alberto Locke M.D. Primary Care Provider Encounter Details Date Type Department Care Team Description 01/16/2022 Admin Visit Department of [facility] Ian Hays[facility] [address] [place] [address] [address] [place] [phone] (Wo rk) Social History Tobacco Use Types [...] or relatives? How often do you attend rastafari or lutheran More than 4 time s per year 07/09/2020 services? 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 PCP - General Family Medicine 04/27/19 [address] [place] [address] documented as of this encounter
--- OUTSIDE RECORDS SUMMARY | 2022-06-29 09:24 | XMS_ITS | Encounter Summary ---
:1985 Author Organization [facility] Address [address] [place] [address] Care Team Providers Name Role Phone Alberto Locke M.D. Primary Care Provider Reason for Visit Reason Comments Illness Diarrhea that started 2 matias hs ago along with tooth pain. Feels like something is wrong. Tonight confused and whole body feels numb. Hard to take deep breath that started a c ouple of months ago. Headache that started on her way here. Encounter Details Date Type Department Care Team Description 02/21/2022 Emergency [place] [place], Infection Urinary Department Ray Mustafa M.D. [place] (Primary Dx) [address], [place] [phone] (Wo rk) Social History Tobacco Use Types [...] or relatives? How often do you attend yarsanism or evangelical More than 4 time s per year 07/09/2020 services? Do you belong to any clubs or organizations No 04/19/2019 such as yarsanism groups, unions, fraternal or athletic groups, or [...] Sign Reading Time Taken Comments Blood Pressure 100/56 02/21/2022 3:45 AM CDT Pulse 76 02/21/2022 3:45 AM CDT Temperature 36.8 ??C (98.2 ??F) 02/21/2022 12:20 AM CDT Respiratory Rate - - Oxygen Saturation 97% 02/21/2022 3:45 AM CDT Inhaled Oxygen Concentration - - Weight 153 kg (337 lb 1.3 oz) 02/21/2022 12:21 AM CDT Height 157.5 cm (5' 2) 02/21/2022 12:21 AM CDT Body Mass Index 61.65 02/21/2022 12:21 AM CDT documented in this encounter Discharge Instructions Discharge InstructionsRay Early M.D. - 02/21/2022 4:16 AM CDT You were examined and treated today in the [facility] Emergency Department (ED) on an emergency basis. This visit is not a substitute for comprehensive and ongoing medical care. In most cases, you must let your primary physician evaluate you again. Call your doctor today to advise them of your ED visit. Tell your doctor about any new or lasting problems. After you leave the ED today, pleasefollow the instructions provided to you. AttachmentsThe following attachments cannot be sent through Care Everywhere. Urinary Tract Infection Adult (Indonesian)documented in this encounter Medications at Time of Discharge Medication Sig Dispensed Refills Start Date End Date acetaminophen Take 1-2 tablets by 0 06/24/2017 (for_TYLENOL) 500 mg mouth every 6 (six) tablet hours as needed. FLUoxetine (PROzac) 20 60 mg daily. 0 02/04/2022 mg capsule levonorgestreL (MIRENA) 1 each by 0 20 mcg/24 hours (6 yrs) intrauterine route 52 mg IUD continuously. ondansetron (ZOFRAN) 4 Take 1 tablet (4 mg 20 tablet 0 2 03/2022 mg tabletIndications: total) by mouth every Nausea 8 (eight) hours as needed for nausea or vomiting. polyethylene glycol Drink 1st portion of 238 g 0 2021 (MIRALAX) 17 gram/dose prep at 6 PM the oral powderIndications: evening before. 2nd Diarrhea portion must be started 4 hours before and finished 2 hours prior to report time nitrofurantoin Take 1 capsule (100 14 capsule 0 02/21/2022 0 02/28/2022 monohydrate (MACROBID) mg total) by mouth 2 100 mg capsule (two) times a day for 7 days. documented as of this encounter ED Notes Ray Early M.D. - 02/21/2022 1:39 AM CDT SUBJECTIVE CHIEF COMPLAINT/REASON FOR VISIT Illness (Diarrhea that started 2 months ago along with tooth pain. Feels like something is wrong. Tonight confused and whole body feels numb. Hard to take deep breath that started a couple of months ago. Headache that started on her way here.) HISTORY OF PRESENT ILLNESS patient is a very pleasant 36-year-old female past medical history migraine headache, sleep apnea, GERD, ADHD, depression, diarrhea. Patient is being evaluated as outpatient for diarrhea. GI pathogen panel pfeiffer negative 4 days ago. Patient presents tonight for evaluation of whole body numbness and feeling something was off. Symptoms began at 10:00 p.m. when she was putting a kids to bed. She additionally complains of lightheadedness, occasional sharp, mild, nonradiating left flank pain and finger tingling. Denies dysuria, chest pain or shortness of breath. Denies fever chills. Patient does have a CPAP prescribed however, ex- throat away and she is not placed. REVIEW OF SYSTEMS Constitutional: Negative for fever. HENT: Negative for rhinorrhea. Respiratory: Negative for shortness of breath. Cardiovascular: Negative for chest pain. Gastrointestinal: Negative for abdominal pain. Genitourinary: Positive for flank pain. Negative for dysuria. Musculoskeletal: Negative for neck stiffness. Skin: Negative for rash. Neurological: Negative for syncope. Psychiatric/Behavioral: Negative for confusion. OBJECTIVE Initial Vitals [02/21/22 0020] Temperature Pulse Rate Heart Rate Resp Blood Pressure SpO2 36.8 ??C 83 -- -- 153/88 98 % Pain Score 8 PHYSICAL EXAMINATION Constitutional: No distress. HENT: Head: Normocephalic and atraumatic. Nose: No nasal discharge. Mouth/Throat: Mucous membranes are moist. Eyes: Conjunctivae are normal. Cardiovascular: Normal rate. Pulmonary/Chest: Effort normal. Abdominal: Soft. There is no abdominal tenderness. Musculoskeletal: General: Normal range of motion. Cervical back: Normal range of motion. Neurological: Alert and oriented to person, place, and time. Skin: Skin is warm and dry. Psychiatric: She has a normal mood and affect. Behavior is normal. Patient has a right maxillary broken molar. No discharge or surrounding erythema. No bleeding. ASSESSMENT/PLAN Patient is a very pleasant 36-year-old female with a history of obstructive sleep apnea who presentswith feeling generally unwell. She has had no vomiting, no change to her chronic diarrhea, fever or chills. Denies lightheadedness, shortness of breath or chest pain. She does complain of finger tingling and numbness as well as possible mild flank pain. No reported dysuria. Differential diagnosis includes hyperventilation, electrolyte abnormality, urinary tract infection, kidney stone among others. Workup reveals urinary tract infection. Will provide antibiotics. Patient is also hypercarbic thoughnon acidotic with a history of obstructive sleep apnea. She was previously using CPAP however machine was thrown out by her ex-. Discussed at length to the danger of untreated sleep apnea. Instructed patient to contact her primary care provider for replacement CPAP and other strategies to treatobstructive sleep apnea. Patient does have a longstanding broken maxillary right molar. No signs of active infection. Instructed patient to contact her dentist for extraction. Strict return precautions discussed. ED Course as of 02/21/22 0442 Sat Feb 21, 2022 0227 LMP mid january 405 Blood: Negative 0405 Nitrite, U: Negative 0405 Venous pCO2(!): 60 Known obstructive sleep apnea. Non acidotic. 0413 White Blood Cells(!): 11-20 0413 Bacteria(!): Present 412 Leukocyte Esterase(!): Small 041 Blood: Negative Final Diagnoses: as of 02/21/22441 Infection Urinary Tract Ray Early M.D. 02/21/22441 documented in this encounter Plan of Treatment Scheduled Procedures Name Priority Associated Diagnoses Date/Time COLONOSCOPY Diarrhea documented as of this encounter Procedures Procedure Name Priority Date/Time Associated Comments Diagnosis URINALYSIS WITH STAT 02/21/2022 3:35 AM Result s for this MICROSCOPIC CDT procedure are i n the results section. CBC WITH STAT 02/21/2022 2:36 AM Results f or this DIFFERENTIAL, B CDT procedure ar e in the results section. VENOUS BLOOD GAS STAT 02/21/2022 2:36 AM Resul ts for this W/COOX, B CDT procedure are i n the results section. BASIC METABOLIC STAT 02/21/2022 2:36 AM Result s for this PANEL, S/P CDT procedure are i n the results section. documented in this encounter Results (ABNORMAL) Urinalysis with Microscopic: Urine, Midstream (02/21/2022 3:35 AM CDT) [facility] Time Signature Source Urine, Urine, 02/21/2022 [facility] Midstream 3:44 AM CDT Clarity Cloudy (A) Clear 02/21/2022 [facility] 3:44 AM CDT Color Yellow 02/21/2022 [facility] 3:44 AM CDT Comment: ----REFERENCE VALUE---- Colorless Yellow Philomena Blood Negative Negative 02/21/2022 3:44 AM CDT [facility] Nitrite Negative Negative 02/21/2022 3:44 AM CDT [facility] Leukocyte Esterase Small (A) Negative 02/21/2022 3:44 AM CD T [facility] Protein Negative mg/dL 02/21/2022 3:44 AM CDT [facility] Comment: ----REFERENCE VALUE---- Negative Trace Glucose Negative Negative mg/dL 02/21/2022 3:[address] [facility] Ketone Trace (A) Negative mg/dL 02/21/2022 3:[address] [facility] Bilirubin Negative Negative 02/21/2022 3:44 AM CDT [facility] pH 5.5 5.0 - 8.0 02/21/2022 3:44 AM CDT [facility] Specific Swink 1.022 1.001 - 1.035 02/21/2022 3:44 AM CDT [facility] Urobilinogen 1.0 0.2 - 1.0 mg/dL 02/21/2022 3:44 AM CD T [facility] White Blood Cells 11-20 (A) /hpf 02/21/2022 4:07 AM CDT [facility] Comment: ----REFERENCE VALUE---- Males: 0-3 Females: 0-10 Unknown: 0-10 Red Blood Cells None Seen 0 - 2 /hpf 02/21/2022 4:07 AM CDT [facility] Hyaline Casts 1-3 /lpf 02/21/2022 4:07 AM CDT [facility] Squamous Cells 11-20 /hpf 02/21/2022 4:[address] [facility] Bacteria Present (A) None Seen 02/21/2022 4:07 AM CDT [facility] Specimen Anatomical Collection Method Collection Time Receive d Time (Source) Location / / Volume Laterality Urine (Urine, 02/21/2022 3:35 AM 02/22/20 3:40 Midstream) CDT AM CDT Ray Early M.D. LAB URINE ORDERABLES Performing Organization Address City/State/ZIP Code Phon e Number [facility]- [address] [place] [address] [address] [place] [address] System in [place] [address] [place] [address] Basic Metabolic Panel (02/21/2022 2:36 AM CDT) P athologist Signature Potassium, P 4.1 3.6 - 5.2 02/21/2022 [facility] mmol/L 3:03 AM CDT Sodium, P 138 135 - 145 02/21/2022 [facility] mmol/L 3:03 AM CDT Chloride, P 103 98 - 107 02/21/2022 [facility] mmol/L 3:03 AM CDT Bicarbonate, P 28 22 - 29 02/21/2022 [facility] mmol/L 3:03 AM CDT Anion Gap, P 7 7 - 15 02/21/2022 [facility] 3:03 AM CDT BUN (Blood Urea 12 6 - 21 02/21/2022 [facility] Nitrogen), P mg/dL 3:03 AM CDT Creatinine 0.76 0.59 - 02/21/2022 [facility] 1.04 mg/dL 3:03 AM CDT eGFR-Black/Afric >90 >=60 02/21/2022 [facility] an [place]i mL/min/BSA 3:03 AM CDT Comment: ----ADDITIONAL INFORMATION---- Estimated GFR calculated using the 2009 CKD_EPI creatinine equation. eGFR Non-Black/ >90 >=60 mL/min/BSA 02/21/2022 3:03 AM CDT [facility] Comment: ----ADDITIONAL INFORMATION---- Estimated GFR calculated using the 2009 CKD_EPI creatinine equation. Calcium, Total, P 9.1 8.6 - 10.0 mg/dL 02/21/2022 3:03 AM CDT [facility] Glucose, P 100 70 - 140 mg/dL 02/21/2022 3:03 AM CDT [facility] Specimen Anatomical Collection Method Collection Time Receive d Time (Source) Location / / Volume Laterality Blood (Blood, 02/21/2022 2:36 AM 02/22/20 2:40 Venous) CDT AM CDT Ray Early M.D. LAB BLOOD ADD-ON Performing Organization Address City/State/ZIP Code Phon e Number [facility]- [address] [place] [address] [place] [address] [facility] [place] [address] System in [place] [place] CBC with Differential, Blood (02/21/2022 2:36 AM CDT) athologist Signature Hemoglobin 13.6 11.6 - 02/21/2022 [facility] 15.0 g/dL 2:42 AM CDT Hematocrit 42.8 35.5 - 02/21/2022 [facility] 44.9 % 2:42 AM CDT Erythrocytes 4.80 3.92 - 02/21/2022 [facility] 5.13 2:42 AM CDT x10(12)/L MCV 89.2 78.2 - 02/21/2022 [facility] 97.9 fL 2:42 AM CDT RBC Distrib Width 13.3 12.2 - 02/21/2022 [facility] 16.1 % 2:42 AM CDT Platelet Count 239 157 - 371 02/21/2022 [facility] x10(9)/L 2:42 AM CDT Leukocytes 5.9 3.4 - 9.6 02/21/2022 [facility] x10(9)/L 2:42 AM CDT Neutrophils 3.45 1.56 - 02/21/2022 [facility] 6.45 2:42 AM CDT x10(9)/L Lymphocytes 1.59 0.95 - 02/21/2022 [facility] 3.07 2:42 AM CDT x10(9)/L Monocytes 0.64 0.26 - 02/21/2022 [facility] 0.81 2:42 AM CDT x10(9)/L Eosinophils 0.19 0.03 - 02/21/2022 [facility] 0.48 2:42 AM CDT x10(9)/L Basophils <0.03 0.01 - 02/21/2022 [facility] 0.08 2:42 AM CDT x10(9)/L Specimen Anatomical Collection Method Collection Time Receive d Time (Source) Location / / Volume Laterality Blood (Blood, 02/21/2022 2:36 AM 02/22/20 2:40 Venous) CDT AM CDT Ray Early M.D. LAB BLOOD ADD-ON Performing Organization Address City/State/ZIP Code Phon e Number [facility]- [address] [place], [place] [address] [facility] [place] [address] System in [place] [address] (ABNORMAL) Blood Gas with Coox, Venous (02/21/2022 2:36 AM CDT) [facility] gist Method Time Signature Venous Sample Venipunct 02/21/2022 [facility] Site 2:46 AM CDT Venous pO2 32 Not applicable 02/21/2022 [facility] mm Hg 2:46 AM CDT Venous pCO2 60 (H) 41 - 51 mm Hg 02/21/2022 [facility] 2:46 AM CDT Venous pH 7.32 7.32 - 7.43 pH 02/21/2022 [facility] 2:46 AM CDT Venous Base 3 Not applicable 02/21/2022 [facility] Excess mmol/L 2:46 AM CDT HCO3 30 Not applicable 02/21/2022 [facility] mmol/L 2:46 AM CDT Hemoglobin, B 14.0 11.6 - 15.0 02/21/2022 [facility] g/dL 2:46 AM CDT O2Hb 37.5 Not applicable 02/21/2022 [facility] % 2:46 AM CDT COHb 2.9 <3.0 % 02/21/2022 [facility] 2:46 AM CDT MetHb 1.3 <1.5 % 02/21/2022 [facility] 2:46 AM CDT CtO2 7.4 Not Applicable 02/21/2022 [facility] vol % 2:46 AM CDT Specimen Anatomical Collection Method Collection Time Receive d Time (Source) Location / / Volume Laterality Blood (Blood, 02/21/2022 2:36 AM 02/22/20 22 2:40 Venous) CDT AM CDT Ray Early M.D. LAB BLOOD NON ADD-ON Performing Organization Address City/State/ZIP Code Phon e Number [facility]- [address] [place], [place] [address] [place] [address] System in [place] [address] documented in this encounter Visit Diagnoses Diagnosis Infection Urinary Tract - Primary documented in this encounter Additional Health Concerns Assessment Noted Time PHQ-9 Depression Total Score: 9 07/08/2020 3:59 PM INDUSTRIAL ENG documented as of this encounter Care Teams Customer Experience Specialist Relationship Specialty Start Date End Date Alberto Locke M.D. PCP - General Family Medicine 04/27/19 [address] [place] [phone] documented as of this encounter
--- OUTSIDE RECORDS SUMMARY | 2022-06-29 09:24 | XMS_ITS | Encounter Summary ---
:1985 Author Organization [facility] Address [address] [place] [address] Care Team Providers Name Role Phone Alberto Locke M.D. Primary Care Provider Reason for Referral Outpatient (Routine) - Closed Specialty Diagnoses / Procedures Referred By Contact Refer marko To Contact Diagnoses Edema Dyspnea On Exertion Shortness Of Breath Nichole Maria M.D. [facility] [place] [facility] Procedures DX Chest AP or PA and Lateral 2 Views [address] [place] [address] Referral ID Status Reason Start Date Expiration Date Visits Requ ested Visits Authorized [id number] Closed 11/04/2021 11/04/2022 1 1 Reason for Visit Outpatient (Routine) - Closed Specialty Diagnoses / Procedures Referred By Contact Refer marko To Contact Diagnoses Edema Dyspnea On Exertion Shortness Of Breath Nichole Maria M.D. [facility] [place] [facility] Procedures DX Chest AP or PA and Lateral 2 Views [address] [place] [address] Referral ID Status Reason Start Date Expiration Date Visits Requ ested Visits Authorized [id number] Closed 11/04/2021 11/04/2022 1 1 Encounter Details Date Type Department Care Team Description 11/04/2021 Hospital Encounter Department of Nichole Maria; Radiology in Marko Barrett M.D. Dyspnea On Exertion; [place] [address] Shortness Of Breath [address] [place] [phone] Social History Tobacco Use Types Packs/Day [...] or relatives? How often do you attend adventism or caodaism More than 4 time s per year 07/09/2020 services? Do you belong to any clubs or organizations No 04/19/2019 such as adventism groups, unions, fraternal or athletic groups, or [...] as needed. levonorgestreL (MIRENA) 1 each by intrauterine 0 20 mcg/24 hours (6 yrs) route continuously. 52 mg IUD documented as of this encounter Plan of Treatment Scheduled Procedures Name Priority Associated Diagnoses Date/Time COLONOSCOPY Diarrhea documented as of this encounter Procedures Procedure Name Priority Date/Time Associated Comments Diagnosis DX CHEST AP OR PA RAD - Routine 11/04/2021 3:58 Edema Results for this AND LATERAL 2 (most inpatients PM CDT Dyspnea On procedure are in VIEWS and all Exertion the results outpatients) Shortness Of section. Breath documented in this encounter Results DX Chest [...] d isease. Nichole CH DIAGNOSTIC IMAGING PROCE SANDRINE documented in this encounter Visit Diagnoses Diagnosis Edema Dyspnea On Exertion Shortness Of Breath documented in this encounter Additional Health Concerns Assessment Noted Time PHQ-9 Depression Total Score: 9 07/08/2020 3:59 PM HYDRAULIC LIFT DRIVER documented as of this encounter Care Teams Spiritual Counselor Relationship Specialty Start Date End Date Alberto Locke M.D. PCP - General Family Medicine 04/27/19 [place] [phone] documented as of this encounter
--- OUTSIDE RECORDS SUMMARY | 2022-06-29 09:24 | XMS_ITS | Encounter Summary ---
:1985 Author Organization [facility] Address [address] [place] [address] Care Team Providers Name Role Phone Alberto Locke M.D. Primary Care Provider Encounter Details Date Type Department Care Team Description 02/25/2022 Orders Only [facility] Sa emma Lemos M.D. Screening Lipid [address] [place] [phone] (Wo rk) Social History Tobacco Use Types [...] or relatives? How often do you attend worship or catholic More than 4 time s per year 07/09/2020 services? Do you belong to any clubs or organizations No 04/19/2019 such as worship groups, unions, fraternal or athletic groups, or [...] Type Priority Associated Diagnoses Order S chedule Lipid Panel Lab Routine Screening Lipid Expected: , Expires: 08/24/2022 Scheduled Procedures Name Priority Associated Diagnoses Date/Time COLONOSCOPY Diarrhea documented as of this encounter Visit Diagnoses Diagnosis Screening Lipid documented in this encounter Additional Health Concerns Assessment Noted Time PHQ-9 Depression Total Score: 9 07/08/2020 3:59 PM CORSET MAKER documented as of this encounter Care Teams Ragman Relationship Specialty Start Date End Date Alberto Locke M.D. PCP - General Family Medicine 04/27/19 [address] [place] [phone] documented as of this encounter
--- OUTSIDE RECORDS SUMMARY | 2022-06-29 09:24 | XMS_ITS | Encounter Summary ---
:1985 Author Organization [facility] Address [address] [place] [address] Care Team Providers Name Role Phone Alberto Locke M.D. Primary Care Provider Reason for Visit Reason Comments Results [facility] Encounter Details Date Type Department Care Team Description 01/18/2022 Clinical Communication Division of Tracy Wolf ([facility]) Community Internal Kimberli Purdy R.N. [facility] [address] [facility] [id number] [place] [phone] [address] [facility] [[email or web address]] ([facility]) [place] [id number] Social History Tobacco Use Types Packs/Day Years [...] or relatives? How often do you attend evangelical or yarsani More than 4 time s per year 07/09/2020 services? Do you belong to any clubs or organizations No 04/19/2019 such as evangelical groups, unions, fraternal or athletic groups, or [...] to pay for the very basics like Kaboodle hat hard 07/09/2020 food, housing, medical care, [...] this encounter Miscellaneous Notes Telephone Encounter - Kimberli Wolf R.N. 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 Based on an initial review of the patient's medical record, treatment may be appropriate for COVID-19. Patient Interest: The patient is interested in learning about medications and monitoring. COVID-19 Symptoms: The patient is having symptoms that started on 01/15/22. The symptoms are not severe. Severe symptoms may include new or increasing oxygen requirements, shortness of breath at rest, shortness of breath that limits walking short distances, chest pain (such as retrosternal or left sided chest pain, pain that radiates to the jaw or arm), and dizziness or lightheadedness that makes them unsteady or unable to stand or walk. Do you have new or increased oxygen requirement due to COVID 19? No. Are you or ? no. Have you previously received treatment for COVID-19 in the last 90 days? No. Pre-Call Chart Review: Chart review was completed and indicates the patient is preliminarily eligible for Paxlovid and Molnupiravir Counseling Regarding Therapy for COVID-19 You may choose to accept or refuse any of the available treatments that we will review today. You may also stop treatment at any time. Your choice will not change your standard medical care. Regardless of your choice, you should continue to self-isolate and use infection control measures according to CDC guidelines (e.g., wear mask, isolate, social distance, avoid sharing personal items, and frequent handwashing). In addition, regardless of whether you accept any of the treatments we discuss today, if you developworsening symptoms of COVID-19, you should reach out to your primary care provider or present to [facility] for evaluation. Treatment Options Discussion Paxlovid Paxlovid is an investigational medicine authorized by the FDA for Emergency Use for treatment for COVID-19. Paxlovid stops the replication of the virus that causes COVID-19 and has been shown to reduce the risk of hospitalization or by 87%. Side effects are uncommon, but abnormal taste, diarrhea and muscle aches have been reported. Seriousreactions such as allergic reactions and liver failure are extremely uncommon. Tell your health careprovider right away if you experience side effects. Because PAXLOVID is still being studied, it is possible that not all of the risks are known at this time. Serious and unexpected side effects may happen. You would need to [employer] and start the medication within 5 days of symptom onset, and you would take the medication twice a day for 5 days. You would need to have someone who is not in isolation or quarantine for COVID-19 [employer] the prescription at a [facility] pharmacy. The medication is provided at no cost to you. Several medications interact with Paxlovid and, if taken with Paxlovid, could lead to serious side effects. We will review your medications in detail before prescribing paxlovid. Guidance for : There are no available data on the presence of nirmatrelvir in human or animal milk, the effects on the breastfed , or the effects on milk production. Limited published data reports that ritonavir is present in human milk. There is no information on the effects of ritonavir on the breastfed or the effects of the drug on milk production. [facility] advises that mothers should pump and dump for the 5 days while taking Paxlovid. Guidance for Contraception: Use of ritonavir may reduce the efficacy of combined hormonal contraceptives. Advise patients using combined hormonal contraceptives to use an effective alternative contraceptive method or an additional barrier method of contraception Treatment Decision: The patient declines the treatment option listed above. They would like to take more time to decide.The patient was counselled to call [facility] at [phone] if they change their mind. Reviewed that the medications are more effective when prescribed as close to the symptom onset as possible. Remote Patient Monitoring: Does the patient have a qualifying MASS score? No. MASS Score is 0-2. End RPM screening. COVID-19 Isolation Beginning of isolation (day 0) is considered the start of onset of symptoms. Isolate at home with minimal to no contact with other people living in your house until all the following are true: ?? It has been at least 5 days since your symptoms started. Or, if you have no symptoms, it has beenat least 5 days since your positive COVID-19 test. If you are immune compromised, isolate for at least 10 days. ?? You are fever free for at least 24 hours without the use of fever-reducing medications. Wear a mask everywhere you go for an additional 5 days. Continue to wear a mask in indoor spaces when community transmission is high. What should you tell your close contacts who are NOT UP TO DATE WITH VACCINATIONS? ?? Quarantine for 5 days after last contact. ?? After quarantine, wear a mask for 5 more days. Continue to wear a mask in indoor spaces when community transmission is high. ?? Get tested for COVID-19 five days after the close contact exposure. ?? If they develop symptoms, they need to quarantine and get tested for COVID-19. What should you tell your close contacts if they ARE UP TO DATE WITH VACCINATION? ?? Wear a mask for 10 days following the close contact exposure. ?? They do not need to quarantine if they do not have symptoms. ?? Get tested for COVID-19 five days after the close contact exposure. ?? If they develop symptoms, they need to quarantine and get tested for COVID-19. Defining Up to Date with Vaccinations Received a Booster dose as scheduled after completion of an mRNA vaccine series (Moderna or Pfizer) OR 2 months after a Fei [employer] vaccine. Thank you for your time today. The results of this call will be shared with members of your care team. Response to Education: patient/caller able to teach back Caller agreeable to plan of care: yes The following references were used: Nursing or Provider judgement, [facility], [facility] Protocols Kimberli Wolf R.N. May COVID Care Team [facility] and Telephone Encounter - Kimberli Wolf R.N. - 01/18/2022 3:54 PM CDT Pre-Call Chart Review to evaluate for eligibility for COVID-19 Treatments: Is the patient or immune compromised? No. Patient should be offered Paxlovid first. If patient declines (and is eligible based on MASS score) offer IV treatments. Last option is Molnupiravir. Continue with chart review. Monoclonal Antibody Screening Score (MASS) Total Points Current as of today 1 0 - 3 Points: Low Risk 4 - 6 Points: Medium Risk >= 7 Points: High Risk No Change Details This score is used to evaluate patient risk of complications with COVID-19 infection Points Metrics 0 Age: 36 Current as of today 0 Has Chronic Respiratory Disease: No Current as of today 0 Has Diabetes: No Current as of today 0 Patient is Immune Compromised/Transplant Patient: No Current as of today 1 BMI: BMI >/= 35 Dx on Problem List Current as of today 0 Has CVD: No Current as of today 0 Has Renal Disease (CKD 4 or 5, ESRD w/ Dialysis): No Current as of today 0 Has Hypertension: No Current as of today 0 : No Current as of today What is the MASS Score? MASS 1-2: Review chart for eligibility for Paxlovid and Molnupiravir. Paxlovid is offered first, if patient declines or does not meet criteria, offer Molnupiravir. Continue chart review. Is the date of symptom onset known? No, but patient tested positive on 01/16/22. Are they within the eligibility window for treatment? Date not reported. Contact the patient to determine if symptomatic and within window for treatment. Continue with chart review. Does the problem list include diagnoses that suggest severe liver disease, such as ascites, hepatic encephalopathy, esophageal varices and end stage liver disease? No. Continue chart review to assess eligibility. Do labs include abnormalities that suggest acute liver disease (AST/ALT > 10x ULN?)? No. Continue chart review to assess eligibility. AST, Total, S Date Value Ref Range Status 11/12/2017 22 8 - 43 U/L Final Aspartate Aminotransferase (AST), P Date Value Ref Range Status 05/19/2021 16 8 - 43 U/L Final Alanine Aminotransferase (ALT), S Date Value Ref Range Status 04/13/2019 8 7 - 45 U/L Final Alanine Aminotransferase (ALT), P Date Value Ref Range Status 05/19/2021 17 7 - 45 U/L Final Does the patient have a Creatinine in the last 12 months AND have an e-GFR>/= 30? Yes. Creatinine, P Date Value Ref Range Status 11/04/2021 0.70 0.59 - 1.04 mg/dL Final eGFR Non-Black/ Date Value Ref Range Status 11/04/2021 >90 >=60 mL/min/BSA Final Comment: ----ADDITIONAL INFORMATION---- Estimated GFR calculated using the 2009 CKD_EPI creatinine equation. 11/12/2017 >60 >60 ML/MIN/BSA Final 11/12/2017 >60 >60 ML/MIN/BSA Final eGFR-Non Black/ Date Value Ref Range Status 04/13/2019 >90 >=60 mL/min/BSA Final Comment: ----ADDITIONAL INFORMATION---- Estimated GFR calculated using the 2009 CKD_EPI creatinine equation. eGFR Black/ Date Value Ref Range Status 11/12/2017 >60 >60 ML/MIN/BSA Final eGFR-Black/ Date Value Ref Range Status 11/04/2021 >90 >=60 mL/min/BSA Final Comment: ----ADDITIONAL INFORMATION---- Estimated GFR calculated using the 2009 CKD_EPI creatinine equation. 04/13/2019 >90 >=60 mL/min/BSA Final Comment: ----ADDITIONAL INFORMATION---- Estimated GFR calculated using the 2009 CKD_EPI creatinine equation. 11/12/2017 >60 >60 ML/MIN/BSA Final Is the patient prescribed medications that interact with Paxlovid? No. MASS 0-2: They remain eligible for Paxlovid (0-5 days) and Molnupiravir (day 0-5). Paxlovid is offered first, if they decline offer Molnupiravir. End chart review. Chart review was completed and indicates the patient is preliminarily eligible for: Paxlovid and Molnupiravir. Kimberli Wolf R.N. 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 PCP - General Family Medicine 04/27/19 [address] [place] [address] documented as of this encounter
--- OUTSIDE RECORDS SUMMARY | 2022-06-29 09:24 | XMS_ITS | Encounter Summary ---
:1985 Author Organization [facility] Address [address] [place] [address] Care Team Providers Name Role Phone Alberto Locke M.D. Primary Care Provider Reason for Referral Outpatient (Routine) - Authorized Specialty Diagnoses / Procedures Referred By Contact Refer red To Contact Family Medicine Diagnoses Diarrhea Pain Generalized Abdominal Nausea Alaina Stratton APRN [facility] C[facility] D.N.P. [address] [place] [address] Referral ID Status Reason Start Date Expiration Date Visits V isits Requested Authorized [id number] Authorized 02/17/2022 02/17/2023 1 1 Reason for Visit Reason Comments Symptom Assessment Encounter Details Date Type Department Care Team Description 02/17/2022 Office Visit Department of Alaina Stratton Diarrhea (Pr imary Dx); Internal Medicine in [facility] Bust[facility]os, C.N.P., [place]; [place], [place] D.N.P. Pain Generalized Abdominal; [address] Shortness Of Breath; [place], [place] Gastroesophagea l Reflux Disease Without Esophagitis [phone] Social History Tobacco Use Types Packs/Day Years [...] How often do you attend uatsdin or taoist More than 4 time s per year [...] Sign Reading Time Taken Comments Blood Pressure 116/80 02/17/2022 6:14 PM CDT Pulse 121 02/17/2022 6:04 PM CDT Temperature 35.3 ??C (95.5 ??F) 02/17/2022 6:04 PM CDT Respiratory Rate - - Oxygen Saturation 97% 02/17/2022 6:04 PM CDT Inhaled Oxygen Concentration - - Weight 151 kg (332 lb 14.3 oz) 02/17/2022 6:04 PM CDT Height 157.5 cm (5' 2.01) 02/17/2022 6:04 PM CDT Body Mass Index 60.87 02/17/2022 6:04 PM CDT documented in this encounter Patient Instructions Patient InstructionsAlaina Stratton APRN, C.N.P., D.N.P. - 02/17/2022 7:25 PM CDT Start Prilosec over the counter once daily on an empty stomach documented in this encounter Progress Notes Alaina Stratton APRN, C.N.P., Priti.N.P. - 02/17/2022 6:30 PM CDT SUBJECTIVE CHIEF COMPLAINT/REASON FOR VISIT Symptom Assessment. HISTORY OF PRESENT ILLNESS Carol is a very pleasant 36 y.o. female who presents for evaluation of Symptom Assessment. Carol has concerns today about diarrhea Onset: Diarrhea since December Progression: Has become more yellow and bile like. Number of bowel movements daily: 10-20 Consistency of bowel movements: Watery Current diet: Nothing today. Otherwise has been eating a general diet Triggers: Occurs all day regardless of what she has eaten. Treatments tried: Pepto bismol makes her throw Fluid status: She has been working on drinking more fluids, Appljuice and water today Recent antibiotics: None Last colonoscopy: None Previous work up: History of a GI bleed in 2017. History of gallstones. History of diarrhea: None Family history of GI disorders: None Status post cholecystectomy: yes Travel history: None Medication changes: Increased fluoxetine to 60mg at the beginning of January Associated symptoms- Vomiting: One episode this morning, reports it was brown Fevers: None, but she feels feverish. Has not taken any tylenol or ibuprofen today Blood in the stool: Initially had a lot of blood when the diarrhea started Abdominal pain/cramping: Nausea today but no pain. Left lower quadrant abdominal pain when she coughs Orthostatic lightheadedness: today Weight loss: She has lost about 8kg since her last visit in october Joint pain: Whole body hurts. Some left arm numbness Rashes: None Flushing: Yes Shaking: Was unable to poor juice this morning because she was shaking so hard. Diaphoresis: Has been feeling very sweaty off and on which has been going on for a couple of weeks Shortness of breath: Feels like she has trouble taking a deep breath. Had this in October and d dimer was negative. Chest x ray was normal in october SOCIAL HISTORY Denies tobacco use. No concern for excessive alcohol use. Lives independently ALLERGIES/CONTRAINDICATIONS Allergies Allergen Reactions ??? Effexor [Venlafaxine] Other (see comments) Light headed and dizzy ??? Penicillins Other (see comments) Does not recall reaction- reports reaction during childhood. REVIEW OF SYSTEMS REVIEW OF SYSTEMS Pertinent positives as per HPI. Otherwise, comprehensive review of systems performed and negative. OBJECTIVE VITAL SIGNS BP 116/80 (BP Location: Left arm, Patient Position: Sitting, Cuff Size: Large) Pulse (!) 121 Temp (!) 35.3 ??C (Temporal) Ht 157.5 cm Wt (!) 151 kg SpO2 97% BMI 60.87 kg/m?? PHYSICAL EXAMINATION Constitutional General: She is not in acute distress. Appearance: She is well-developed. She is not diaphoretic. HENT Head: Normocephalic and atraumatic. Eyes Pupils: Pupils are equal, round, and reactive to light. Cardiovascular Rate and Rhythm: Regular rhythm. Tachycardia present. Heart sounds: Normal heart sounds. No murmur heard. No friction rub. No gallop. Pulmonary Effort: Pulmonary effort is normal. No respiratory distress. Breath sounds: Normal breath sounds. No wheezing or rales. Abdominal Palpations: Abdomen is soft. There is no mass. Tenderness: There is abdominal tenderness. There is no guarding or rebound. Musculoskeletal General: Normal range of motion. Cervical back: Normal range of motion. Skin General: Skin is warm and dry. Neurological Mental Status: She is alert and oriented to person, place, and time. Psychiatric Behavior: Behavior normal. ASSESSMENT / PLAN #1 Diarrhea Two month history significant diarrhea. Reports 10-20 episodes watery stools per day. GI pathogen panel is pending. If this comes back positive with anything than we will treat accordingly. 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 If the pathogen panel is negative will plan on proceeding with a colonoscopy for further evaluation. I did put in order for this today. Workup today revealed a mildly elevated white cell count and a mildly elevated CRP. Could represent a viral gastroenteritis. No history of diverticulitis. No fevers although she is tachycardic and her blood pressure is a bit on the low side. No signs of significant dehydration in her lab work today and her hemoglobin was on the high side of normal so I have a low suspicion for an acute GI bleed. I did instruct her to have a low threshold for returning to the emergency department if any of her symptoms worsen as I am a bit concerned about her vital signs. - Colonoscopy Case Request: COLONOSCOPY - polyethylene glycol (MIRALAX) 17 gram/dose oral powder; Drink 1st portion of prep at 6 PM the evening before. 2nd portion must be started 4 hours before and finished 2 hours prior to report time, Normal - bisacodyL (DULCOLAX) 5 mg EC tablet; Take 2 tablets (10 mg total) by mouth once for 1 dose. Take at 6 PM evening prior to colonoscopy, Starting Wed02/17/2022, Normal #2 Nausea #3 Pain Generalized Abdominal 12 hour history of nausea with 1 episode of vomiting this morning. She has not had any further vomiting but reports poor appetite and difficulty eating. Prescribed Zofran to help with the nausea. Recommended we get a urine test rule this out as a potential cause. Could be related to a viral g astroenteritis. Recommended close follow-up in 2-3 days or sooner if symptoms are not resolving. Labwork today was unrevealing with a mildly elevated CRP. Normal lipase and liver function tests. - ondansetron (ZOFRAN) 4 mg tablet; Take 1 tablet (4 mg total) by mouth every 8 (eight) hours as needed for nausea or vomiting., Starting Wed02/17/2022, Normal - Test, POCT, Urine (lab); Future; Expected date: 02/17/2022 #4 Shortness Of Breath This has been going on for several months with some worsening symptoms. She is tachycardic today which may be contributing to her shortness of breath today. Workup done in November showed a normal chest x-ray. BNP continues to be normal. May be related to weight or anxiety. Recommended further workup if the symptom does not improve. - NT-Pro B-Type Natriuretic Peptide (BNP); Future; Expected date: 02/17/2022 - NT-Pro B-Type Natriuretic Peptide (BNP) #5 Gastroesophageal Reflux Disease Without Esophagitis She has a history of reflux and reports some dysphagia over the last few months. Feels like things are getting stuck when she tries to eat. Recommended trying [id number] Prilosec daily for up to 30 days. If symptoms are not improving recommended follow-up. Other orders - CBC with Differential, Blood; Future; Expected date: 02/17/2022 - Comprehensive Metabolic Panel; Future; Expected date: 02/17/2022 - Lipase; Future; Expected date: 02/17/2022 - CRP (C-Reactive Protein); Future; Expected date: 02/17/2022 - GI Pathogen Panel, PCR, Feces; Future; Expected date: 02/17/2022 - CBC with Differential, Blood - Comprehensive Metabolic Panel - Lipase - CRP (C-Reactive Protein) - GI Pathogen Panel, PCR, Feces - Family Medicine office visit (clinic); Future; Expected date: 02/20/2022 Recommended Carol follow up in 3 days to review symptoms. Follow up sooner for any new or worseningsymptoms. Carol verbalized understanding of the plan of care and was in agreement. All questions were answered today. Total time spent on visit: 33 minutes documented in this encounter Miscellaneous Notes Result Encounter Note - Alaina Stratton APRN, C.N.P., D.N.P. - 02/19/2022 7:44 AM CDT Portal message sent with results. Your stool test came back negative for all GI pathogens. Considering how long your symptoms have been going on I think proceeding with the colonoscopy is a reasonable next step. In the meantime you cantry over the counter imodium 2 tablets up to 4 times daily to see if this helps with your symptoms. Please follow up if anything worsens. Thank you Alaina Stratton APRN, Marlyn.N.P., D.N.P. documented in this encounter Plan of Treatment Scheduled Procedures Name Priority Associated Diagnoses Date/Time COLONOSCOPY Diarrhea Scheduled Referrals Name Type Priority Associated Diagnoses Order S [facility] Medicine Outpatient Referral Routine Diarrhea Expected: office visit Pain Generalized 02/20/2022, (clinic) Abdominal Expires: Nausea 05/20/2023 documented as of this encounter Procedures Procedure Name Priority Date/Time Associated Comments Diagnosis GI PATHOGEN PANEL, Routine 02/17/2022 7:48 PM Diarrhea Results for this PCR, F CDT Pain Generalized procedure a re in Abdominal the results section. TEST, POCT, Routine 02/17/2022 7:47 PM Nausea Results for this U (LAB) CDT procedure are i n the results section. NT-PRO B-TYPE Routine 02/17/2022 6:38 PM Shortness Of Breath R esults for this NATRIURETIC PEPTIDE CDT procedur e are in (BNP), S the results section. CBC WITH DIFFERENTIAL, Routine 02/17/2022 6:38 PM Diarrh ea Results for this B CDT Pain Generalized procedure a re in Abdominal the results section. C-REACTIVE PROTEIN Routine 02/17/2022 6:38 PM Diarrhea Results for this (CRP), S/P CDT Pain Generalized procedure a re in Abdominal the results section. LIPASE, S/P Routine 02/17/2022 6:38 PM Diarrhea Results for this CDT Pain Generalized procedure a re in Abdominal the results section. COMPREHENSIVE Routine 02/17/2022 6:38 PM Diarrhea Results for this METABOLIC PANEL, S/P CDT Pain Generalized pro cedure are in Abdominal the results section. documented in this encounter Results GI Pathogen Panel, PCR, Feces (02/17/2022 7:48 PM CDT) [facility] Method Time Signature Specimen Source STOOL 02/17/2022 [facility] 9:17 PM CDT Campylobacter Negative Negative 02/17/2022 [facility] species 9:17 PM CDT C. difficile toxin Negative Negative 02/17/2022 [facility] 9:17 PM CDT Plesiomonas Negative Negative 02/17/2022 [facility] shigelloides 9:17 PM CDT Salmonella species Negative Negative 02/17/2022 [facility] 9:17 PM CDT Vibrio species Negative Negative 02/17/2022 [facility] 9:17 PM CDT Vibrio cholerae Negative Negative 02/17/2022 [facility] 9:17 PM CDT Yersinia species Negative Negative 02/17/2022 [facility] 9:17 PM CDT Enteroaggregative E. Negative Negative 02/17/2022 [facility] coli (EAEC) 9:17 PM CDT Enteropathogenic E. Negative Negative 02/17/2022 [facility] coli (EPEC) 9:17 PM CDT Enterotoxigenic E. Negative Negative 02/17/2022 [facility] coli (ETEC) 9:17 PM CDT Shiga toxin Negative Negative 02/17/2022 [facility] producing E. coli 9:17 PM CDT Shigella/Enteroinvas Negative Negative 02/17/2022 [facility] gulshan E. coli 9:17 PM CDT Cryptosporidium Negative Negative 02/17/2022 [facility] species 9:17 PM CDT Cyclospora Negative Negative 02/17/2022 [facility] cayetanensis 9:17 PM CDT Entamoeba Negative Negative 02/17/2022 [facility] histolytica 9:17 PM CDT Giardia Negative Negative 02/17/2022 [facility] 9:17 PM CDT Adenovirus F40/41 Negative Negative 02/17/2022 [facility] 9:17 PM CDT Astrovirus Negative Negative 02/17/2022 [facility] 9:17 PM CDT Norovirus GI/GII Negative Negative 02/17/2022 [facility] 9:17 PM CDT Rotavirus Ag, F Negative Negative 02/17/2022 [facility] 9:17 PM CDT Sapovirus Negative Negative 02/17/2022 [facility] 9:17 PM CDT Comment: ----ADDITIONAL INFORMATION---- This assay is performed using the FDA-cl eared FilmArray GI Panel ([employer] Specimen Anatomical Collection Method Collection Time Receive d Time (Source) Location / / Volume Laterality Stool (Stool) 02/17/2022 7:48 PM 02/18/20 7:48 CDT PM CDT Alaina Stratton APRN C.N.P., D.N.P. LAB MICROBIOLOGY - GENERAL ORDERABLES Performing Organization Address City/State/ZIP Code Phon e Number [facility] [address] [place] [address] [address] [place] [address] [address] Test, POCT, Urine (lab) (02/17/2022 7:47 PM CDT) athologist Signature Negative 02/17/2022 [facility] Test, POCT, U 7:52 PM CDT Specimen Anatomical Collection Method Collection Time Receive d Time (Source) Location / / Volume Laterality Urine 02/17/2022 7:47 PM 7:47 CDT PM CDT Kendal Rosenberg APRNN.Marcio, D.N.P. LAB POCT ORDERABL ES - DEVICE Performing Organization Address City/State/ZIP Code Phon e Number [facility]- [address] [place], [place] [address] [facility] [place] [address] System in [place] [address] [place] NT-Pro B-Type Natriuretic Peptide (BNP) (02/17/2022 6:38 PM CDT) athologist Signature NT-Pro BNP 79 <160 pg/mL 02/17/2022 7:13 [facility] PM CDT Comment: NT-proBNP values less than 300 pg/mL hav e a 99% negative predictive value for excluding acute con gestive heart failure. A cutoff of 1200 pg/mL for arun ents with an eGFR<60 yields a diagnostic sensitivity and spec ificity of 89% and 72% for acute congestive heart failure. NT-proBNP values greater than 450 pg/mL are consistent wi th CHF in adults under 50 years of age. Specimen Anatomical Collection Method Collection Time Receive d Time (Source) Location / / Volume Laterality Blood (Blood, 02/17/2022 6:38 PM 02/18/20 22 6:44 Venous) CDT PM CDT Marlyn Rosenberg APRN.N.P., D.N.P. LAB BLOOD ADD-ON Performing Organization Address City/State/ZIP Code Phon e Number [facility] [address] [place], [place] [address] [facility] [place] [address] System in [place] [address] [place] (ABNORMAL) CRP (C-Reactive Protein) (02/17/2022 6:38 PM CDT) athologist Signature C-Reactive 21.7 (H) <=8.0 mg/L 02/17/2022 [facility] Protein (CRP), 7:10 PM CDT P Specimen Anatomical Collection Method Collection Time Receive d Time (Source) Location / / Volume Laterality Blood (Blood, 02/17/2022 6:38 PM 02/18/20 6:44 Venous) CDT PM CDT Marlyn Rosenberg APRN.N.P., D.N.P. LAB BLOOD ADD-ON Performing Organization Address City/State/ZIP Code Phon e Number [facility]- [address] [place], [place] [address] [place] [address] System in [place] [address] [place] [address] Lipase (02/17/2022 6:38 PM CDT) athologist [facility] Lipase, P 22 13 - 60 U/L 02/17/2022 7:10 [facility] PM CDT Specimen Anatomical Collection Method Collection Time Receive d Time (Source) Location / / Volume Laterality Blood (Blood, 02/17/2022 6:38 PM 02/18/20 22 6:44 Venous) CDT PM CDT Alaina Stratton APRN, Marlyn.N.P., D.N.P. LAB BLOOD ADD-ON Performing Organization Address City/State/ZIP Code Phon e Number [facility]- [address] [place], [place] [address] [facility] [place] [address] System in [place] [facility] [place] Comprehensive Metabolic Panel (02/17/2022 6:38 PM CDT) athologist Signature Potassium, P 4.4 3.6 - 5.2 02/17/2022 [facility] mmol/L 7:10 PM CDT Sodium, P 137 135 - 145 02/17/2022 [facility] mmol/L 7:10 PM CDT Chloride, P 101 98 - 107 02/17/2022 [facility] mmol/L 7:10 PM CDT Bicarbonate, P 22 22 - 29 02/17/2022 [facility] mmol/L 7:10 PM CDT Anion Gap, P 14 7 - 15 02/17/2022 [facility] 7:10 PM CDT BUN (Blood Urea 9 6 - 21 02/17/2022 [facility] Nitrogen), P mg/dL 7:10 PM CDT Creatinine 0.74 0.59 - 02/17/2022 [facility] 1.04 mg/dL 7:10 PM CDT eGFR-Black/Afric >90 >=60 02/17/2022 [facility] an [place] mL/min/BSA 7:10 PM CDT Comment: ----ADDITIONAL INFORMATION---- Estimated GFR calculated using the 2009 CKD_EPI creatinine equation. eGFR Non-Black/ >90 >=60 mL/min/BSA 02/17/2022 7:10 PM CDT [facility] Comment: ----ADDITIONAL INFORMATION---- Estimated GFR calculated using the 2009 CKD_EPI creatinine equation. Calcium, Total, P 9.5 8.6 - 10.0 mg/dL 02/17/2022 7:10 PM CDT [facility] Glucose, P 116 70 - 140 mg/dL 02/17/2022 7:10 PM CDT [facility] Protein, Total, P 7.6 6.3 - 7.9 g/dL 02/17/2022 7:10 P M CDT [facility] Albumin, P 3.9 3.5 - 5.0 g/dL 02/17/2022 7:10 PM CDT [facility] Aspartate Aminotransferase 20 8 - 43 U/L 02/17/2022 7 :10 PM CDT [facility] (AST), P Alkaline Phosphatase, P 73 35 - 104 U/L 02/17/2022 7: 10 PM CDT [facility] Alanine Aminotransferase (ALT), 41 7 - 45 U/L 022 7:10 PM CDT [facility] P Bilirubin, Total, P 0.8 <=1.2 mg/dL 02/17/2022 7:10 PM CDT [facility] Specimen Anatomical Collection Method Collection Time Receive d Time (Source) Location / / Volume Laterality Blood (Blood, 02/17/2022 6:38 PM 02/18/20 22 6:44 Venous) CDT PM CDT Alaina Apollo Stratton APRN, C.N.P., Priti.NBrittaneyP. LAB BLOOD ADD-ON Performing Organization Address City/State/ZIP Code Phon e Number [facility]- [address] [place] [address] [facility] [place] [address] System in [place] [address] [place] (ABNORMAL) CBC with Differential, Blood (02/17/2022 6:38 PM CDT) [facility] Method Time Signature Hemoglobin 15.5 (H) 11.6 - 02/17/2022 [facility] 15.0 g/dL 6:46 PM CDT Hematocrit 48.2 (H) 35.5 - 02/17/2022 [facility] 44.9 % 6:46 PM CDT Erythrocytes 5.49 (H) 3.92 - 02/17/2022 [facility] 5.13 6:46 PM CDT x10(12)/L MCV 87.8 78.2 - 02/17/2022 [facility] 97.9 fL 6:46 PM CDT RBC Distrib Width 13.6 12.2 - 02/17/2022 [facility] 16.1 % 6:46 PM CDT Platelet Count 263 157 - 371 02/17/2022 [facility] x10(9)/L 6:46 PM CDT Leukocytes 10.8 (H) 3.4 - 9.6 02/17/2022 [facility] x10(9)/L 6:46 PM CDT Neutrophils 9.32 (H) 1.56 - 02/17/2022 [facility] 6.45 6:46 PM CDT x10(9)/L Lymphocytes 1.01 0.95 - 02/17/2022 [facility] 3.07 6:46 PM CDT x10(9)/L Monocytes 0.40 0.26 - 02/17/2022 [facility] 0.81 6:46 PM CDT x10(9)/L Eosinophils <0.03 0.03 - 02/17/2022 [facility] 0.48 6:46 PM CDT x10(9)/L Basophils <0.03 0.01 - 02/17/2022 [facility] 0.08 6:46 PM CDT x10(9)/L Specimen Anatomical Collection Method Collection Time Receive d Time (Source) Location / / Volume Laterality Blood (Blood, 02/17/2022 6:38 PM 02/18/20 6:44 Venous) CDT PM CDT Alaina Stratton APRN C.N.P., D.N.P. 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 PCP - General Family Medicine 04/27/19 [address] [place] [address] documented as of this encounter
--- OUTSIDE RECORDS SUMMARY | 2022-06-29 09:24 | XMS_ITS | Encounter Summary ---
:1985 Author Organization [facility] Address [address] [place] [address] Care Team Providers Name Role Phone Alberto Locke M.D. Primary Care Provider Reason for Visit Reason Onset Date Comments Testing For Upper Respiratory Virus Symptoms 01/16/2022 Encounter Details Date Type Department Care Team Description 01/16/2022 External Outreach Department of [facility] Yamel Collins Contact With And (Suspected) Exposure To COVID-19; Medicine, [place] T, P.A.-C. Infection [facility], in [address] [address] [place], [place] [phone] (Work) [phone] Social History Tobacco Use Types Packs/Day Years [...] or relatives? How often do you attend restorationism or amish More than 4 time s per year 07/09/2020 services? Do you belong to any clubs or organizations No 04/19/2019 such as restorationism groups, unions, fraternal or athletic groups, or [...] AM CDT documented as of this encounter Progress Notes Idalia Daigle R.N. - 01/16/2022 7:14 AM CDT Encounter created for symptomatic infectious disease screening with possible COVID, Influenza, RSV, and/or Group A Strep testing. documented in this encounter Miscellaneous Notes Result Encounter Note - Bambi Parr R.N. - 01/18/2022 8:38 AM CDT Your patient has tested positive for SARS-CoV-2, the virus that causes COVID-19. Every patient that tests positive receives initial guidance sent via an online letter, which is sent by mail or the patient portal depending on patient preferences. ACTION NEEDED: Please update the patient's problem list and medication list to ensure an accurate and timely evaluation for COVID-19 treatments, including various medications and Remote Patient Monitoring (RPM). If eligible for COVID-19 treatments or RPM, your patient will be contacted by a designated team of nurses to coordinate the care. For questions, contact the [place] Covid Care Team ([facility]): Pager: [phone] In basket: P RST/[facility] COVID-19 POSITIVE Covid Care e-consult NOTE: At the time of testing, patients are instructed to obtain the result by calling the [employer] result line or by checking their online services account. documented in this encounter Plan of Treatment Scheduled Procedures Name Priority Associated Diagnoses Date/Time COLONOSCOPY Diarrhea documented as of this encounter Procedures Procedure Name Priority Date/Time Associated Diagnosis Comme nts SARS CORONAVIRUS-2 Routine 01/16/2022 8:39 AM Contact With And Results for this RNA, V CDT (Suspected) Exposure procedu re are in To COVID-19 the results Infection Upper section. Respiratory documented in this encounter Results (ABNORMAL) SARS Coronavirus-2 RNA, V Symptomatic (01/16/2022 8:39 AM CDT) [facility] Method Time Signature SARS-CoV-2 Swab, 01/17/2022 ECLR Specimen Nasopharynx 8:57 PM CDT Source SARS CoV-2 Detected (A) Undetected 01/17/2022 ECLR RNA, TMA 8:57 PM CDT Comment: SARS-CoV-2 RNA present. ----ADDITIONAL INFORMATION---- This molecular amplification test was pe rformed using the Aptima SARS-CoV-2 assay ([employer] on the Fotologs tem under emergency use authorization (EUA) by the U.S. Food and Drug Administ ration. Fact sheets for this EUA assay can be fo und at the following links: For Healthcare Providers: https://www.[employer]le [employer] Odor Resistant Bedding a.gov/media/360147/download For Patients: https://www.fda.gov/media/ 332917/download Specimen Anatomical Collection Method Collection Time Receive d Time (Source) Location / / Volume Laterality Varies 01/16/2022 8:39 AM 4:18 (Nasopharynx) CDT PM CDT Venu Collins P.A.-C. LAB MICROBIOLOGY - GENERAL O OBBBY Performing Organization Address City/State/ZIP Code Phon e Number [facility]- [address] [place] [address] [phone] [facility] [place] [address] System [address] documented in this encounter Visit Diagnoses Diagnosis Contact With And (Suspected) Exposure To COVID-19 Infection Upper Respiratory documented in this encounter Additional Health Concerns Infection Onset Date Last Indicated Resolved Time COVID19 Pending 01/16/2022 01/16/2022 01/17/2022 8:58 PM CDT Assessment Noted Time PHQ-9 Depression Total Score: 9 07/08/2020 3:59 PM REFLOW OPERATOR documented as of this encounter Care Teams Bottoming Room Supervisor Relationship Specialty Start Date End Date Alberto Locke M.D. PCP - General Family Medicine 04/27/19 [address] [place] [phone] documented as of this encounter
--- OUTSIDE RECORDS SUMMARY | 2022-06-29 09:24 | XMS_ITS | Encounter Summary ---
:1985 Author Organization [facility] Address [address] [place] [address] Care Team Providers Name Role Phone Alberto Locke M.D. Primary Care Provider Reason for Visit Reason Comments Immunizations flu Encounter Details Date Type Department Care Team Description 07/11/2021 Clinical Support Department of Pediatrics Sa griffin Baxter, in [facility] [address] [facility] [address] [place] [address] [place], [place] [phone] Social History Tobacco Use Types Packs/Day [...] or relatives? How often do you attend oriental orthodox or presybeterian More than 4 time s per year 07/09/2020 services? Do you belong to any clubs or organizations No 04/19/2019 such as oriental orthodox groups, unions, fraternal or athletic groups, or [...] Depression Total Score: 9 07/08/2020 3:59 PM MOTORCYLES FINAL INSPECTOR documented as of this encounter Care Teams Sales Contracts Analyst Relationship Specialty Start Date End Date Alberto Locke M.D. PCP - General Family Medicine 04/27/19 [address] [place] [phone] documented as of this encounter
--- OUTSIDE RECORDS SUMMARY | 2022-06-29 09:24 | XMS_ITS | Encounter Summary ---
:1985 Author Organization [facility] Address [address] [place] [address] Care Team Providers Name Role Phone Alberto Locke M.D. Primary Care Provider Reason for Visit Reason Comments Med Refill Encounter Details Date Type Department Care Team Description 05/05/2021 Refill Urgent Care [place] [facility], Med [facility] [place] [facility] [address] [facility] [address] [place] [address] [place] [address] [phone] (Wo rk) Social History Tobacco Use Types Packs/Day Years Used Date Smoking Tobacco: Some Days Cigarettes 0 0 Smokeless Tobacco: Never Comments: Smoking 1-2 cigarettes monthly Alcohol Use Standard Drinks/Week Comments Yes 0 (1 standard drink = 0.6 oz [...] or relatives? How often do you attend christian or baptism More than 4 time s per year 07/09/2020 services? Do you belong to any clubs or organizations No 04/19/2019 such as christian groups, unions, fraternal or athletic groups, or [...] this encounter Miscellaneous Notes Telephone Encounter - Alberto Locke M.D. - 05/12/2021 9:44 AM CDT Prescription was approved documented in this encounter Plan of Treatment Scheduled Procedures Name Priority Associated Diagnoses Date/Time COLONOSCOPY Diarrhea documented as of this encounter Visit Diagnoses Not on filedocumented in this encounter Additional Health Concerns Assessment Noted Time PHQ-9 Depression Total Score: 9 07/08/2020 3:59 PM MEMBERSHIP SOLICITOR documented as of this encounter Care Teams Machine Heddle Cleaner Relationship Specialty Start Date End Date Alberto Locke M.D. PCP - General Family Medicine 04/27/19 [address] [place] [phone] documented as of this encounter
--- OUTSIDE RECORDS SUMMARY | 2022-06-29 09:24 | XMS_ITS | Encounter Summary ---
:1985 Author Organization [facility] Address [address] [place] [address] Care Team Providers Name Role Phone Alberto Locke M.D. Primary Care Provider Reason for Visit Reason Comments Outpatient COVID-19 Testing Encounter Details Date Type Department Care Team Description 07/15/2021 Emergency [facility] [address] [place] [phone] Social History Tobacco Use Types Packs/Day Years [...] or relatives? How often do you attend jewish or latter-day More than 4 time s per year 07/09/2020 services? Do you belong to any clubs or organizations No 04/19/2019 such as jewish groups, unions, fraternal or athletic groups, or [...] Sign Reading Time Taken Comments Blood Pressure - - Pulse 101 07/15/2021 8:01 PM ORAL SURGERY ASSISTANT Temperature - - Respiratory Rate 18 07/15/2021 8:01 PM ORAL SURGERY ASSISTANT Oxygen Saturation 94% 07/15/2021 8:01 PM ORAL SURGERY ASSISTANT Inhaled Oxygen Concentration - - Weight - - Height - - Body Mass Index - - documented in this encounter Discharge Instructions Discharge InstructionsMichelle Kennedy R.N. - 07/15/2021 8:22 PM CST COVID-19 disease from Coronavirus is rapidly changing. We recognize the uncertainty you may feel at this time, and want to assure you that [facility] is committed to your health and safety. To stay informed, it is highly recommended you seek information from a website that has the most accurate and recent information such as the CDC: https://www.cdc.gov/coronavirus/2019-ncov/downloads/aqbt-ttff-4533- fJlP-eziw-gjcut.pdf [place] Messages from the CDC link above. ??? Stay home except to get medical care ??? Separate yourself from other people and animals in your home ??? Call ahead before visiting your doctor ??? Wear a facemask ??? Cover your nose and mouth when coughing or sneezing ??? Avoid sharing personal household items ??? Clean all ???high-touch?? surfaces every day If test results are negative, patients will receive a message through [facility] when resulted. If they are not active in [employer], they will receive a phone call. If test results are positive, patients will be contacted by a [facility] provider. SURGERY ASSISTANT documented in this encounter Medications at Time of [...] breakfast. Reflux/GERD documented as of this encounter Plan of Treatment Scheduled Procedures Name Priority Associated Diagnoses Date/Time COLONOSCOPY Diarrhea documented as of this encounter Procedures Procedure Name Priority Date/Time Associated Diagnosis Comme nts IFLU A, B, SARS STAT 07/15/2021 8:11 PM Result s for this COV-2, PCR, RAPID,V ORAL SURGERY ASSISTANT procedur e are in the results section. documented in this encounter Results Influenza A/B, SARS CoV-2, PCR, Rapid, Varies Symptomatic (07/15/2021 8:11 PM ORAL SURGERY ASSISTANT) [facility] gist Method Time Signature Influenza A, Negative Negative 07/15/2021 CNFL PCR, Rapid, V 8:38 PM ORAL SURGERY ASSISTANT Influenza B, Negative Negative 07/15/2021 CNFL PCR, Rapid, V 8:38 PM ORAL SURGERY ASSISTANT SARS CoV-2, Undetected Undetected 07/15/2021 CNFL PCR, Rapid, V 8:38 PM ORAL SURGERY ASSISTANT Comment: ----ADDITIONAL INFORMATION---- This RT-PCR test was performed using the Javy SARS-CoV-2 and Influenza A/B Reagent assay from [employer], which has received Emergency Use Authori zation(EUA) by the U.S. Food and Drug Administration . Fact sheets for this Emergency Use Autho rization (EUA) assay can be found at the following link s: For Healthcare Providers: https://www.fda.gov/media/062616/downloa d For Patients: https://www.fda.gov/media/848867/downloa d Infl A/B, SARS CoV-2, PCR, Source Swab, Nasopharynx 07/15/2021 8:38 PM ORAL SURGERY ASSISTANT CNFL Specimen Anatomical Collection Method Collection Time Receive d Time (Source) Location / / Volume Laterality Varies 07/15/2021 8:11 PM 8:17 (Nasopharynx) ORAL SURGERY ASSISTANT PM ORAL SURGERY ASSISTANT Cedric Bush P.A.-C. LAB MICROBIOLOGY - GENERAL O RDERABLES Performing Organization Address City/State/ZIP Code Phon e Number [facility]- [address] [place] [phone] [facility] [place] [address] System [address] documented in this encounter Visit Diagnoses Not on filedocumented in this encounter Additional Health Concerns Infection Onset Date Last Indicated Resolved Time COVID19 Pending 07/15/2021 07/15/2021 07/15/2021 8:38 PM ORAL SURGERY ASSISTANT Assessment Noted Time PHQ-9 Depression Total Score: 9 07/08/2020 3:59 PM ORAL SURGERY ASSISTANT documented as of this encounter Care Teams Ophthalmologist Retina Specialist Relationship Specialty Start Date End Date Alberto Locke M.D. PCP - General Family Medicine 04/27/19 [address] [place] [phone] documented as of this encounter
--- OUTSIDE RECORDS SUMMARY | 2022-06-29 09:24 | XMS_ITS | Encounter Summary ---
:1985 Author Organization [facility] Address [address] [place] [address] Care Team Providers Name Role Phone Alberto Locke M.D. Primary Care Provider Encounter Details Date Type Department Care Team Description 05/12/2021 Clinical Communication Department of [facility] Alberto Fregoso M.D. [facility], [address], [facility] [phone] [place] [address] [place], [place] (Work) [phone] Social History Tobacco Use Types Packs/Day [...] or relatives? How often do you attend yarsani or church More than 4 time s per year 07/09/2020 services? Do you belong to any clubs or organizations No 04/19/2019 such as yarsani groups, unions, fraternal or athletic groups, or [...] to pay for the very basics like A[employer]ary[employer] hat hard 07/09/2020 food, housing, medical care, [...] Pending 05/19/2021 05/19/2021 05/20/2021 3:13 PM CDT COVID19 Pending 07/15/2021 07/15/2021 07/15/2021 8:38 PM SHIPPING TECHNICIAN Assessment Noted Time PHQ-9 Depression Total Score: 9 07/08/2020 3:59 PM SHIPPING TECHNICIAN documented as of this encounter Care Teams Duplicator Punch Operator Relationship Specialty Start Date End Date Alberto Locke M.D. PCP - General Family Medicine 04/27/19 [address] [place] [place] [phone] documented as of this encounter
--- OUTSIDE RECORDS SUMMARY | 2022-06-29 09:25 | XMS_ITS | Encounter Summary ---
:1985 Author Organization [facility] Address [address] [place] [address] Care Team Providers Name Role Phone Alberto Locke M.D. Primary Care Provider Encounter Details Date Type Department Care Team Description 05/01/2021 Clinical Communication Department of [facility] Alberto Fregoso M.D. [facility], [address], [facility] [phone] [place] [address] [place], [place] (Work) [phone] Social History Tobacco Use [...] or relatives? How often do you attend yazdanism or confucianism More than 4 time s per year 07/09/2020 services? Do you belong to any clubs or organizations No 04/19/2019 such as yazdanism groups, unions, fraternal or athletic groups, or [...] to pay for the very basics like [employer] hat hard 07/09/2020 food, housing, medical care, [...] this encounter Miscellaneous Notes Telephone Encounter - Barbara Johnston - 05/01/2021 7:34 AM CDT Berny Rojas has put in a request for you to schedule Physical Therapy at your earliest convenience. To secure an appointment, please respond with your appointment time preferences (e.g. day of week, time of day, etc.) that would be close to the expected date that was requested. You can also reach us at your clinic appointment line if you would prefer to schedule this over the phone between 7 am-6 pm, Wednesday-Wednesday. [place]: [phone] [place]: [phone] [place]: [phone] [place]: [phone] [place]: [phone] [place]: [phone] [facility]: [phone] Stephen Noriega, [place], or [facility]: [phone] [place]:[phone] [place]: [phone] Thank you for trusting your health care to [facility]. documented in this encounter Plan of Treatment Scheduled Procedures Name Priority Associated Diagnoses Date/Time COLONOSCOPY Diarrhea documented as of this encounter Visit Diagnoses Not on filedocumented in this encounter Additional Health Concerns Assessment Noted Time PHQ-9 Depression Total Score: 9 07/08/2020 3:59 PM WHEEL ASSEMBLER documented as of this encounter Care Teams Molasses Preparer Relationship Specialty Start Date End Date Alberto Locke M.D. PCP - General Family Medicine 04/27/19 [place] [phone] documented as of this encounter
--- OUTSIDE RECORDS SUMMARY | 2022-06-29 09:25 | XMS_ITS | Encounter Summary ---
:1985 Author Organization [facility] Address [address] [place] [address] Care Team Providers Name Role Phone Alberto Locke M.D. Primary Care Provider Reason for Referral Outpatient (Routine) - Closed Specialty Diagnoses / Procedures Referred By Contact Refer red To Contact Obstetrics and Diagnoses PAR Leonora Reaves, JOSEFA, MIGDALIAS [facility] Gynecology C.N.P. 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 Pap Smear Examination; Gynecology in [facility] [address] Migraine Headache; [facility] [place] Abuse Tobacco Smoking; 4 [facility] [id number] Body Mass Index 60.0 To 69.9 Adult (HCC) ; [facility] [place] [phone] Depression Olimpia r Recurrent ([facility]) [id number] (Work) [phone] Social History Tobacco Use Types Packs/Day Years [...] How often do you attend rastafari or protestant More than 4 time s per year [...] Sign Reading Time Taken Comments Blood Pressure 144/76 07/24/2020 1:03 PM WEB PRODUCTION DESIGNER Pulse - - Temperature - - Respiratory Rate - - Oxygen Saturation - - Inhaled Oxygen Concentration - - Weight 151 kg (332 lb 14.3 oz) 07/24/2020 1:03 PM WEB PRODUCTION DESIGNER Height - - Body Mass Index 61.26 03/05/2020 3:36 PM CDT documented in this encounter Progress Notes Leonora Reaves, JANE-ADONIS, R.N. - 07/24/2020 1:15 PM CST SUBJECTIVE CHIEF COMPLAINT/REASON FOR VISIT Chief Complaint Patient presents with ??? Annual Exam HISTORY OF PRESENT ILLNESS: This patient is a 34 y.o. that presents for an annual exam. She has the following issues shewould like to go over: 1. Is interested in a Mirena IUD for control. She has use Mirena in the past and it worked well for her. She had the Nexplanon prior to her last , became with that in place. Sheis not currently sexually active. She has begun dating and would like the IUD placed in anticipationof the possibility of becoming sexually active again. 2. Is wondering what she can do for migraines. States she has been experiencing more headaches recently. Uses p.r.n. Tylenol or ibuprofen but does not always feel this works. 3. Is due for a Pap smear [employer] HISTORY: Last Pap 2016 and was NIL. She has never had GINGER 2-3 on colposcopy or LEEP. Menses are regular every month, denies intermenstrual bleeding. She is using abstinence for contraception. PROBLEM LIST: Patient Active Problem List Diagnosis ??? Body Mass Index 60.0 To 69.9 Adult (HCC) ??? Abuse Tobacco Smoking ??? Migraine Headache ??? Apnea Sleep Obstructive ??? Gastroesophageal Reflux Disease NOS ??? Attention Deficit With Hyperactivity Disorder ??? Depression Major Recurrent (HCC) MEDICAL HISTORY Past Medical History: Diagnosis Date ??? Hemorrhage Gastrointestinal 11/13/2017 ??? Hypovolemic Shock (HCC) 11/11/2017 ??? Sleep Apnea does not use CPAP machine SURGICAL HISTORY Past Surgical History: Procedure Laterality Date ??? SECTION N/A 04/12/2019 Procedure: SECTION; Surgeon: Xin De Leon M.D.; Location: [facility] OR ??? SECTION 04/12/2019 ??? ENDOSCOPIC RETROGRADE CHOLANGIOPANCREATOGRAPHY (ERCP) N/A 11/08/2017 Procedure: ENDOSCOPIC RETROGRADE CHOLANGIOPANCREATOGRAPHY; Surgeon: Rubio Baker M.D.; Location: [facility] OR ??? ESOPHAGOGASTRODUODENOSCOPY N/A 11/11/2017 Procedure: ESOPHAGOGASTRODUODENOSCOPY; Surgeon: Rubio Baker M.D.; Location: [facility] GI LAB ??? LAPAROSCOPIC APPENDECTOMY N/A 09/08/2017 Procedure: LAPAROSCOPIC APPENDECTOMY; Surgeon: Edd Moeller D.O.; Location: [facility] OR ??? LAPAROSCOPIC CHOLECYSTECTOMY WITH CHOLANGIOGRAM N/A 03/03/2018 Procedure: LAPAROSCOPIC CHOLECYSTECTOMY POSSIBLE CHOLANGIOGRAM; Surgeon: Edd Moeller D.O.; Location: [facility] OR ??? OTHER CONVERTED SHX (SEE COMMENT) N/A 06/24/2017 >1. Normal spontaneous vaginal delivery. 2. Second-degree midline laceration and repair. CURRENT MEDICATIONS Current Outpatient Medications Medication Sig Dispense Refill ??? atenoloL (TENORMIN) 25 mg tablet Take 1 tablet (25 mg total) by mouth daily. 30 tablet 2 ??? buPROPion (WELLBUTRIN SR) 150 mg 12 hr tablet Take 1 tablet (150 mg total) by mouth 2 (two) times a day. 180 tablet 1 ??? omeprazole (for_PriLOSEC) 40 mg capsule Take 40 mg by mouth every morning before breakfast. Reflux/GERD ??? acetaminophen (for_TYLENOL) 500 mg tablet Take 1-2 tablets by mouth every 6 (six) hours as needed. No current facility-administered medications for this visit. ALLERGIES/CONTRAINDICATIONS Allergies Allergen Reactions ??? Effexor [Venlafaxine] Other (see comments) Light headed and dizzy ??? Penicillins Other (see comments) Does not recall reaction- reports reaction during childhood. SOCIAL HISTORY Social History Socioeconomic History ??? Marital status: Spouse name: Not on file ??? Number of children: 3 ??? Years of education: Not on file ??? Highest education level: Some college, no degree Occupational History ??? 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 Financial resource strain: Somewhat hard ??? Food insecurity Worry: Sometimes true Inability: Never true ??? Transportation needs Medical: No Non-medical: No Tobacco Use ??? Smoking status: Current Some Day Smoker Packs/day: 0.00 Years: 0.00 Pack years: 0.00 ??? Smokeless tobacco: Never Used ??? Tobacco comment: Smoking 1-2 cigarettes monthly Substance and Sexual Activity ??? Alcohol use: Yes Frequency: Monthly or less Drinks per session: 1 or 2 Binge frequency: Never Comment: occasional 1-2 a year ??? Drug use: No ??? Sexual activity: Not Currently Partners: Male control/protection: None Lifestyle ??? Physical activity Days per week: 1 day Minutes per session: 20 min ??? Stress: Rather much Relationships ??? Social connections Talks on phone: Twice a week Gets together: Once a week Attends protestant service: More than 4 times per year Active member of club or organization: No Attends meetings of clubs or organizations: Never Relationship status: ??? Intimate partner violence Fear of current or ex partner: No Emotionally abused: No Physically abused: No Forced sexual activity: Patient refused Other Topics Concern ??? Not on file Social History Narrative ??? Not on file FAMILY HISTORY Family History Problem Relation Age of Onset ??? Cancer Grandmother ear ??? Cystic fibrosis Sister ??? Cancer Grandfather larynx ??? Lung cancer Grandmother brain cancer ??? Heart attack Father 47 ??? Hypothyroidism Mother ??? Lung cancer Paternal Grandmother ??? Melanoma Maternal Grandmother ??? Other cancer Maternal Grandfather Throat cancer ??? ADD Son ??? Anesthesia problems Neg Hx REVIEW OF SYSTEMS General: No fevers, sweats. EENT: No blurred vision, double vision, sinus problems, difficulty swallowing,mouth. sores, diminished hearing, ringing in ears, enlarged glands. Pulmonary: No short of breath, cough, wheezing. Cardiac: No chest pain, chest pressure, rapid beating, irregular beating, dependent edema, pain in calves, shortness of breath with exertion. Breasts: No nipple discharge, breast lumps, breast tenderness, no other changes. GI: No heartburn, nausea, vomiting, constipation, diarrhea, blood in BMs, and no change in BMs. Reproductive: See above, no vaginal discharge or pelvic pain. : No burning/pain with urination, no urinary incontinence. Musculoskeletal: No joint or muscle problems. Skin: No skin rashes, skin sores, change in moles. Neuro: Frequent headaches. No known triggers. She has had a change in her vision correction prescription last year, wonders if maybe she has had more changes in her vision. Endocrine: No excessive thirst, no excessive bruising. Psych: Depression. She is taking Wellbutrin. She does not feel that this is fully helpful for her. She is aware that there is much situational stress in her life over the past months. She has spoken with therapist years ago, is interested in this option again. She will reach out to her PCP to discuss p ossibility of changing medication and referral for therapy. HEALTH CARE MAINTENANCE: No regular exercise, TDAP up-to-date, influenza given today OBJECTIVE VITAL SIGNS BP 144/76 Wt (!) 151 kg LMP 07/10/2020 (Approximate) BMI 61.26 kg/m?? PHYSICAL EXAMINATION General: Patient is in no distress. HEENT: Normocephalic. Neck: No nodes, no thyromegaly. Heart: Regular rate and rhythm. No murmurs, gallops or rubs noted. Lungs: Clear to auscultation bilaterally. No expiratory wheeze. No accessary muscles of respiration noted. Breasts: Soft breast tissue without predominant mass or nodularity. No nipple discharge. No axillaryor supraclavicular adenopathy. Abdomen: Nontender to palpation. No hepato-splenomegaly. No mass. Pelvis: Normal external genitalia. BUS normal. Urethra normal. Bladder non tender, not enlarged. Vagina no abnormal discharge. No lesions. Cervix appears normal, Pap smear is taken No cervical motion tenderness. Attempted IUD insertion unsuccessful. Bimanual exam uterus not enlarged. Adnexa no masses, ovaries not enlarged. Anus normal. Extremities: No neurovascular compromise. No cyanosis, clubbing or edema. No edema, nontender. Skin: scattered benign nevi. ASSESSMENT / PLAN #1 Preventive Gynecological Exam Normal exam Flu shot today Attempted IUD insertion unsuccessful. Os Finder is able to be passed through the cervix, but unable to pass the sound or IUD. She will return in 2 weeks when she has her menses for another attempt at Mirena IUD insertion. #2 Pap Smear Examination Pap/HPV today. If normal, will be due in 5 years #3 Migraine Headache Patient has been using Tylenol and/or ibuprofen for migraine and headache relief. She will try Excedrin migraine. Follow-up with PCP if not manageable. #4 Abuse Tobacco Smoking Continues to smoke. She is smoking approximately 1 pack every 1-1/2 to 2 weeks. Cessation is encouraged. #5 Body Mass Index 60.0 To 69.9 Adult (HCC) We discussed her BMI today. She is unsure of why she is gaining weight. Does not feel that she is overeating. Is not specifically physically active. We discussed starting with logging foods in roque such as [employer] or something comparable, making small changes as she can to ensure that she is eating the appropriate amount and making healthier diet choices. Trying to be physically active daily. #6 Depression Major Recurrent (HCC) She is concerned that her depression is not well controlled with her current Wellbutrin does. She will reach out to her PCP to discuss this further as well as discussed the idea therapy as well Answers for HPI/ROS submitted by the patient on 07/09/2020 Fatigue: Yes No eye issues: Yes Sinus congestion: Yes No heart issues: Yes No respiratory issues: Yes No GI issues: Yes No muscle/bone issues: Yes No skin issues: Yes Headache: Yes Loud snoring: Yes No blood/lymph issues: Yes No urinary/reproductive issues: Yes PRODUCTION DESIGNER documented in this encounter Plan of Treatment Scheduled Procedures Name Priority Associated Diagnoses Date/Time COLONOSCOPY Diarrhea Scheduled Referrals Name Type Priority Associated Order Schedule Diagnoses Obstetrics and Outpatient Referral Routine Expect ed: Gynecology office 07/24/2020 visit (clinic) (Approximate) , Expires: 07/24/2023 documented as of this encounter Procedures Procedure Name Priority Date/Time Associated Diagnosis Comme nts THINPREP W/HPV Routine 07/24/2020 1:43 PM Pap Smear Results for this CO-TEST SCREEN WEB PRODUCTION DESIGNER Examination procedure are in the results section. HPV WITH Routine 07/24/2020 1:43 PM Results f or this GENOTYPING, PCR, WEB PRODUCTION DESIGNER procedure a re in THINPREP the results section. documented in this encounter Results HPV with Genotyping, PCR, ThinPrep (07/24/2020 1:43 PM WEB PRODUCTION DESIGNER) [facility] gist Method Time Signature Specimen Thin Prep 07/29/2020 DTL Source Vial, 4:25 PM WEB PRODUCTION DESIGNER Cervix/Endoc ervix HPV High Risk Negative Negative 07/29/2020 DTL type 16, PCR 4:25 PM WEB PRODUCTION DESIGNER HPV High Risk Negative Negative 07/29/2020 DTL type 18, PCR 4:25 PM WEB PRODUCTION DESIGNER HPV other Negative Negative 07/29/2020 DTL High Risk 4:25 PM WEB PRODUCTION DESIGNER types, PCR Comment: The following Other High Risk HPV types were not detected: 31, 33, 35, 39, 45, 51, 52, 56, 58, 59, 66, and 68 This test was ordered in the context of a [facility] [employer] Cytology case; this result should be int erpreted within the context of the [employer] cytology report. Specimen Anatomical Collection Method Collection Time Receive d Time (Source) Location / / Volume Laterality Varies 07/24/2020 1:43 PM 0 WEB PRODUCTION DESIGNER 10:27 AM WEB PRODUCTION DESIGNER Leonora Reaves APRN, C.N.P. LAB MICROBIOLOGY - GENERAL O RDERABLES Performing Organization Address City/State/ZIP Code Phon e Number [facility] - [address] [place], [place] [address] [place] [place] [address] Laboratories-[facility] [address] [facility] ThinPrep w/HPV Co-Test Screen (07/24/2020 1:43 PM WEB PRODUCTION DESIGNER) Component Value Ref Test Analysis Performed Pathologis t Range Method Time At [facility] 07/30/2020 ECLR 2:28 PM WEB PRODUCTION DESIGNER Disclaimer High risk HPV testing, Real-Time Polymerase Chain Reac tion 07/30/2020 ECLR (PCR) was performed on the liquid-based cytology specimen 2:28 PM at WEB PRODUCTION DESIGNER [place], [place]. Report LISSETT Foley(ASCP) 07/30/2020 ECL R electronically I verify that I have examined all relevant slides/ma terials 2:28 PM signed by for the specimen(s) and rendered or confirmed the diagnosis. WEB PRODUCTION DESIGNER Gross Description Received specimen 07/30/2020 ECL R in a ThinPrep 2:28 PM vial. WEB PRODUCTION DESIGNER Pap Test Source Cervical/Endocervi 07/30/2020 ECLR huma 2:28 PM WEB PRODUCTION DESIGNER Interpretation Cervical/Endocervical ??(ThinPrep): 07/30/2020 ECLR Satisfactory for Evaluation 2:28 PM Endocervical/transformation zone components absent WEB PRODUCTION DESIGNER Negative for Intraepithelial Lesion or Malignancy ??High Risk HPV testing results are NEGATIVE. See specific genotype results below. HPV with Genotyping, PCR, ThinPrep: ??HPV High Risk Type 16, PCR: ??NEGATIVE ??HPV High Risk Type 18, PCR: ??NEGATIVE ??HPV other High Risk types, PCR: ??NEGATIVE Other High Risk HPV types include: 31, 33, 35, 39, 45, 51, 52, 56, 58, 59, 66, and 68. Specimen Anatomical Collection Method Collection Time Receive d Time (Source) Location / / Volume Laterality Varies 07/24/2020 1:43 PM 0 (Cervix/Endocerv WEB PRODUCTION DESIGNER 10:27 AM CS T ix) Narrative This result has an attachment that is no t available. Leonora Reaves APRN, C.N.P. LAB PAP PATHDX ORDERABLES Performing Organization Address City/State/ZIP Code Phon e Number [facility]- [address] [place] [address] [phone] [facility] [place] [address] System in [address] documented in this encounter Visit Diagnoses Diagnosis Preventive Gynecological Exam - Primary Pap Smear Examination Migraine Headache Abuse Tobacco Smoking Body Mass Index 60.0 To 69.9 Adult (HCC) Depression Major Recurrent (HCC) documented in this encounter Additional Health Concerns Assessment Noted Time PHQ-9 Depression Total Score: 9 07/08/2020 3:59 PM WEB PRODUCTION DESIGNER documented as of this encounter Care Teams Accounts Payable Lead Relationship Specialty Start Date End Date Alberto Locke M.D. PCP - General Family Medicine 04/27/19 [address] [place] [phone] documented as of this encounter
--- OUTSIDE RECORDS SUMMARY | 2022-06-29 09:25 | XMS_ITS | Encounter Summary ---
:1985 Author Organization [facility] Address [address] [place] [address] Care Team Providers Name Role Phone Alberto Locke M.D. Primary Care Provider Reason for Referral Outpatient (Routine) - Closed Specialty Diagnoses / Procedures Referred By Contact Refer red To Contact Diagnoses Primary Osteoarthritis Knee Left Pain Knee Left Berny Robert [facility] [place] [facility] Procedures zrr-octn-ceilzhys-elbow arthrocentesis: L knee joint M.D. [address] [place] [address] Referral ID Status Reason Start Date Expiration Date Visits Requ ested Visits Authorized [id number] Closed 04/23/2021 04/23/2022 1 1 Physical Therapy (Routine) - Closed Specialty Diagnoses / Procedures Referred By Contact Refer red To Contact Diagnoses Pain Knee Left Primary Osteoarthritis Knee Left Primary Osteoarthritis Knee Right Body Mass Index 60.0 To 69.9 Adult ([facility]) Berny Robert [facility] [place] [facility] Procedures PT Evaluate and treat M.D. [address] [place] [address] Referral ID Status Reason Start Date Expiration Date Visits Requ ested Visits Authorized [id number] Closed 04/23/2021 04/23/2022 1 1 Reason for Visit Outpatient (Routine) - Closed Specialty Diagnoses / Procedures Referred By Contact Refer red To Contact Orthopedic Surgery Diagnoses Pain Knee Left Suzanne Almodovar [facility] [place] [address] Referral ID Status Reason Start Date Expiration Date Visits Requ ested Visits Authorized [id number] Closed 04/14/2021 04/14/2022 1 1 Encounter Details Date Type Department Care Team Description 04/23/2021 Comprehensive Visit Department of Jakob, Primary Osteoarthritis Knee Left (Primary Dx); Orthopedic Surgery Malia Son Pain Knee Left; in [place] [facility] Primary Osteoarthritis Knee Right; [place], [place] Body Mass Index 60.0 To 69.9 Adult ([facility]) [address] [facility] [address] [place] [phone] [address] (Work) [phone] Social History Tobacco Use Types Packs/Day Years [...] or relatives? How often do you attend samaritan or mu-ism More than 4 time s per year 07/09/2020 services? Do you belong to any clubs or organizations No 04/19/2019 such as samaritan groups, unions, fraternal or athletic groups, or [...] AM CDT documented as of this encounter Procedure Notes Berny Robert M.D. - 04/23/2021 10:15 AM CDTAssociated Order(s): ftq-dnsw-bwibudqp-elbow arthrocentesis: L knee joint Post-Procedure Diagnose(s): Primary Osteoarthritis Knee Left; Pain Knee Left Knee site- L knee joint : injection only Date/Time: 04/23/2021 10:41 AM Performed by: Berny Robert M.D. Authorized by: Berny Robert M.D. PROCEDURE DETAILS Procedure Location knee Knee site: L knee joint Patient position: seated Procedural approach: anterolateral Procedure performed: injection only Needle gauge: 22 G Procedural Medication The following medications were administered at the target site(s) Local anesthetic: 6 mL lidocaine 10 mg/mL (1 %) Corticosteroid: 80 mg triamcinolone acetonide 40 mg/mL CONSENT Consent obtained: written PRE-PROCEDURE DETAILS Procedure purpose: therapeutic Site preparation: alcohol and chlorhexidine POST-PROCEDURE DETAILS Procedure completed successfully: yes Complications: no apparent complications Post-procedure instructions: avoid strenuous activity for 2 days Discharge instructions: ice area as needed for comfort documented in this encounter Consult Notes Berny Robert M.D. - 04/23/2021 10:15 AM CDT SUBJECTIVE CHIEF COMPLAINT / REASON FOR VISIT Left knee pain REFERRING PROVIDER Shreya Mane.* HISTORY OF PRESENT ILLNESS Carol is a 35 y.o. female who presents for evaluation of left knee pain which 1st developed a couple of weeks ago. She reports no specific injury. She localizes pain to the anterior aspect of her knee. Pain is aggravated by bending, twisting, and rising from a seated position. She also reports occasio nal sense of giving way but denies any mechanical symptoms. Treatment has consisted of taking nonsteroidal anti-inflammatory medications and Tylenol on an as-needed basis. She has also tried ice and heat. Pain reported: Her current problem list includes: #1 Primary Osteoarthritis Knee Left #2 Pain Knee Left #3 Primary Osteoarthritis Knee Right #4 Body Mass Index 60.0 To 69.9 Adult (HCC) #5 Abuse Tobacco Smoking #6 Migraine Headache #7 Apnea Sleep Obstructive #8 Gastroesophageal Reflux Disease NOS #9 Attention Deficit With Hyperactivity Disorder #10 Depression Major Recurrent (HCC) Past Medical History: Diagnosis Date ??? Hemorrhage Gastrointestinal 11/13/2017 ??? Hypovolemic Shock (HCC) 11/11/2017 ??? Sleep Apnea does not use CPAP machine Past Surgical History: Procedure Laterality Date ??? SECTION N/A 04/12/2019 Procedure: SECTION; Surgeon: Xin De Leon M.D.; Location: [facility] OR ??? SECTION 04/12/2019 ??? ENDOSCOPIC RETROGRADE CHOLANGIOPANCREATOGRAPHY (ERCP) N/A 11/08/2017 Procedure: ENDOSCOPIC RETROGRADE CHOLANGIOPANCREATOGRAPHY; Surgeon: Rubio Baker M.D.; Location: [facility] OR ??? ESOPHAGOGASTRODUODENOSCOPY N/A 11/11/2017 Procedure: ESOPHAGOGASTRODUODENOSCOPY; Surgeon: Rubio Baker M.D.; Location: [facility] GI LAB ??? LAPAROSCOPIC APPENDECTOMY N/A 09/08/2017 Procedure: LAPAROSCOPIC APPENDECTOMY; Surgeon: Edd Moeller D.O.; Location: [facility] OR ??? LAPAROSCOPIC CHOLECYSTECTOMY WITH CHOLANGIOGRAM N/A 03/03/2018 Procedure: LAPAROSCOPIC CHOLECYSTECTOMY POSSIBLE CHOLANGIOGRAM; Surgeon: Edd Moeller D.O.; Location: [facility] OR ??? OTHER CONVERTED SHX (SEE COMMENT) N/A 06/24/2017 >1. Normal spontaneous vaginal delivery. 2. Second-degree midline laceration and repair. Current Outpatient Medications: ??? acetaminophen (for_TYLENOL) 500 mg tablet, Take 1-2 tablets by mouth every 6 (six) hours as needed., Disp: , Rfl: ??? atenoloL (TENORMIN) 25 mg tablet, Take 1 tablet (25 mg total) by mouth daily., Disp: 30 tablet, Rfl: 2 ??? levonorgestreL (MIRENA) 20 mcg/24 hours (6 yrs) 52 mg IUD, 1 each by intrauterine route continuously., Disp: , Rfl: ??? naproxen (NAPROSYN) 500 mg tablet, Take 1 tablet (500 mg total) by mouth 2 (two) times a day as needed for pain (pain)., Disp: 60 tablet, Rfl: 0 ??? omeprazole (for_PriLOSEC) 40 mg capsule, Take 40 mg by mouth every morning before breakfast. Reflux/GERD, Disp: , Rfl: Social History Tobacco Use ??? Smoking status: Current Some Day Smoker Packs/day: 0.00 Years: 0.00 Pack years: 0.00 ??? Smokeless tobacco: Never Used ??? Tobacco comment: Smoking 1-2 cigarettes monthly Substance Use Topics ??? Alcohol use: Yes Comment: occasional 1-2 a year Occupational History ??? 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 REVIEW OF SYSTEMS Review of Systems not performed OBJECTIVE PHYSICAL EXAMINATION General: She is a pleasant, morbidly obese female who is alert and oriented and in no apparent distress. Musculoskeletal: Both knees were examined. Range of motion 0-120 degrees on the right and 0-115 degrees on the left. No obvious effusions. No warmth or erythema bilaterally. Both knees are stable to varus and valgus stress at 0 and 30?? of flexion. Homa's and posterior drawer tests were negative bilaterally. Left knee was tender to palpation along the medial joint line, lateral joint line, and patellar facets. Sensation was intact to light touch all dermatomes distal bilateral lower extremities. 5/5 strength bilateral EHL, tibialis anterior, gastrocnemius/soleus, hamstrings, and quadriceps. Feet were warm and well perfused with intact distal pulses. DIAGNOSTICS IMAGING: Bilateral standing AP, bilateral sunrise, and right lateral knee x-rays performed April 14, 2021 were reviewed. These demonstrated mild to moderate medial joint space narrowing bilaterally. No acute osseous abnormalities. ASSESSMENT / PLAN #1 Primary Osteoarthritis Knee Left #2 Pain Knee Left #3 Primary Osteoarthritis Knee Right #4 Body Mass Index 60.0 To 69.9 Adult ([facility]) Discussed diagnosis and natural history of osteoarthritis. Both surgical and conservative treatment options were discussed today, and recommendation was made for conservative treatment consisting of activity modifications, weight loss, pain management with NSAIDs and/or Tylenol, and intermittent intra-articular corticosteroid or viscosupplementation injections. After discussion, patient was in agreement with plan.She is going to take hdrp-zca-djcjcgd pain medications on an as-needed basis for pain control. She was provided with left knee intra- articular corticosteroid injection(s) in clinic today. She was also referred to formal physical therapy. She will return for follow-up on an as-needed basis. documented in this encounter Plan of Treatment Scheduled Procedures Name Priority Associated Diagnoses Date/Time COLONOSCOPY Diarrhea documented as of this encounter Procedures Procedure Name Priority Date/Time Associated Diagnosis Comme nts [facility]CS ASP/INJ Routine 04/23/2021 10:41 Primary Osteoarthri tis Results for this [facility] JT WO US AM CDT Knee Left procedure are in Pain Knee Left the results section. documented in this encounter Results [facility]CS ASP/INJ [facility] JT WO US (04/23/2021 10:41 AM CDT) Narrative [facility]ODAL - 04/23/2021 10:41 AM CDT Berny Robert M.D. ? 04/23/2021 10:41 AM Knee site- L knee joint : injection only Date/Time: 04/23/2021 10:41 AM Performed by: Berny Robert M.D. Authorized by: Berny Robert M.D. PROCEDURE DETAILS Procedure Location knee Knee site: L knee joint Patient position: seated Procedural approach: anterolateral Procedure performed: injection only Needle gauge: 22 G Procedural Medication The following medications were administe red at the target site(s) Local anesthetic: 6 mL lidocaine 10 mg/m L (1 %) Corticosteroid: 80 mg triamcinolone acet onide 40 mg/mL CONSENT Consent obtained: written PRE-PROCEDURE DETAILS Procedure purpose: therapeutic Site preparation: alcohol and chlorhexid ine POST-PROCEDURE DETAILS Procedure completed successfully: yes Complications: no apparent complications ?? Post-procedure instructions: avoid stren uous activity for 2 days Discharge instructions: ice area as need ed for comfort Berny A Robert M.D. PROCEDURE/MINOR SURGICAL ORD ERABLES Performing Organization Address City/State/ZIP Code Phon e Number MMODAL MM[facility]AL NA documented in this encounter Visit Diagnoses Diagnosis Primary Osteoarthritis Knee Left - Prima ry Pain Knee Left Primary Osteoarthritis Knee Right Body Mass Index 60.0 To 69.9 Adult (HCC) documented in this encounter Administered Medications Inactive Administered Medications - up to 3 most recent administrations Medication Order MAR Action Action Date Dose Rate Site lidocaine 10 mg/mL (1 %) injection Given 04/23/2021 10:41 AM CDT 6 mL 6 mL (XYLOCAINE) 6 mL, infiltration, One-Time Injection, Starting on Wed04/23/21 at 1041, For 1 dose triamcinolone acetonide injection 80 mg Given 04/23/2021 10:41 A M CDT 80 mg (KENALOG-40) 80 mg, intra-articular, One-Time Injection, Starting on Wed04/23/21 at 1041, For 1 dose documented in this encounter Additional Health Concerns Assessment Noted Time PHQ-9 Depression Total Score: 9 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 PCP - General Family Medicine 04/27/19 [address] [place] [address] documented as of this encounter
--- OUTSIDE RECORDS SUMMARY | 2022-06-29 09:25 | XMS_ITS | Encounter Summary ---
:1985 Author Organization [facility] Address [address] [place] [address] Care Team Providers Name Role Phone Alberto Locke M.D. Primary Care Provider Encounter Details Date Type Department Care Team Description 03/12/2020 Hospital Encounter Department of [facility] laura Brown Laboratory Medicine Leonora Flaherty Other in [place] Viral Diseases [place] [address] (COVID-19) [address] [place] [address] [place] [phone] Social History Tobacco Use Types Packs/Day [...] or relatives? How often do you attend religion or voodoo More than 4 time s per year 07/09/2020 services? Do you belong to any clubs or organizations No 04/19/2019 such as religion groups, unions, fraternal or athletic groups, or [...] the highest level of school you have completed or 12 th grade 04/19/2019 the highest degree you have received? Sex Assigned at Date Recorded Female 11/19/2017 10:29 AM CDT documented as of this encounter Medications at Time of Discharge Medication Sig Dispensed Refills Start Date End Date acetaminophen Take 1-2 tablets by 0 06/24/2017 (for_TYLENOL) 500 mg mouth every 6 (six) tablet hours as needed. atenoloL (TENORMIN) 25 Take 1 tablet (25 mg 30 tablet 2 11/04/2021 mg tablet total) by mouth daily. buPROPion (WELLBUTRIN Take 1 tablet (150 180 tablet 1 201904/23/2021 SR) 150 mg 12 hr tablet mg total) by mouth 2 (two) times a day. omeprazole Take 40 mg by mouth 0 11/04 (for_PriLOSEC) 40 mg every morning before capsule breakfast. Reflux/GERD polymyxin B-trimethoprim Administer 1 drop 10 mL 0 09/2407/24/2020 (POLYTRIM) 10,000 unit- into the right eye 4 1 mg/mL ophthalmic (four) times a day. solution venlafaxine XR Take 1 capsule (75 30 capsule 3 12/06/2019 (EFFEXOR-XR) 75 mg 24 hr mg total) by mouth capsule daily. Take with food. documented as of this encounter Plan of Treatment Scheduled Procedures Name Priority Associated Diagnoses Date/Time COLONOSCOPY Diarrhea documented as of this encounter Procedures Procedure Name Priority Date/Time Associated Diagnosis Comme nts SARS-COV-2 TOTAL Routine 03/12/2020 5:36 PM Encounter For Resu lts for this ANTIBODY, SERUM CDT Screening For Other proce dure are in Viral Diseases the results (COVID-19) section. documented in this encounter Results SARS-CoV-2 Total Antibody, Serum (03/12/2020 5:36 PM CDT) [facility] Method Time Signature SARS-CoV-2 Negative Negative 03/13/2020 ECLR Nucleocapsid 3:59 PM CDT Total Ab, S Comment: No antibodies to SARS-CoV-2 detected. Ne gative results may occur in serum collected too soon fo llowing infection or in immunosuppressed patients. Follow- up testing with a molecular test is recommended in symptom atic patients. This test should not be used to exclude activ e/recent COVID-19. ----ADDITIONAL INFORMATION---- Testing was performed using the [employer] [id number] Reagent assay from [employer], which has received Emergency Use Authori zation(EUA) by the U.S. Food and Drug Administration . Fact sheets for this Emergency Use Autho rization (EUA) assay can be found at the following link s: For Healthcare Providers: https://www.fda.gov/media/172887/downloa d For Patients: https://www.fda.gov/media/633611/downloa d Specimen Anatomical Collection Method Collection Time Receive d Time (Source) Location / / Volume Laterality Blood (Blood, 03/12/2020 5:36 PM 03/13/20 20 3:23 Venous) CDT PM CDT Covid Serology Testing Employer Based LAB MICROBIOLOGY - BLOOD ORDERABLES Performing Organization Address City/State/ZIP Code Phon e Number [facility]- [address] [place] [phone] [facility] [place] [place] [address] System in [address] documented in this encounter Visit Diagnoses Diagnosis Encounter For Screening For Other Viral Diseases (COVID-19) documented in this encounter Additional Health Concerns Assessment Noted Time PHQ-9 Depression Total Score: 11 03/05/2020 4:06 PM CD T documented as of this encounter Care Teams Assembly Press Operator Relationship Specialty Start Date End Date Alberto Locke M.D. PCP - General Family Medicine 04/27/19 [place] [phone] documented as of this encounter
--- OUTSIDE RECORDS SUMMARY | 2022-06-29 09:25 | XMS_ITS | Encounter Summary ---
:1985 Author Organization [facility] Address [address] [place] [address] Care Team Providers Name Role Phone Alberto Locke M.D. Primary Care Provider Encounter Details Date Type Department Care Team Description 11/29/2020 Immunization Department of [facility] Ian Hays, Medicine, [place] M.[facility] [employer] [facility], in [address] [place], [place] [address] [address] [place] [address] [phone] Social History Tobacco Use Types Packs/Day Years [...] or relatives? How often do you attend mu-ism or hoahaoism More than 4 time s per year 07/09/2020 services? 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 PCP - General Family Medicine 04/27/19 [address] [place] [address] documented as of this encounter
--- OUTSIDE RECORDS SUMMARY | 2022-06-29 09:25 | XMS_ITS | Encounter Summary ---
:1985 [facility] Address [address] [place] [address] Care Team Providers Name Role Phone Alberto Locke M.D. Primary Care Provider Reason for Referral Outpatient (Routine) - Closed Specialty Diagnoses / Procedures Referred By Contact Refer janell To Contact Orthopedic Surgery Diagnoses Pain Knee Left Suzanne Almodovar [facility] P.[facility]. [address] [place] [address] Referral ID Status Reason Start Date Expiration Date Visits Requ ested Visits Authorized [id number] Closed 04/14/2021 04/14/2022 1 1 Scheduling Instructions Ortho internal referral panel order, bobbi ging before Consult visit Reason for Visit Reason Comments Leg Pain Left Appointment Request (Routine) - Closed Specialty Diagnoses / Procedures Referred By Contact Refer janell To Contact Family Medicine Referral ID Status Reason Start Date Expiration Date Visits Requ ested Visits Authorized [id number] Closed 04/14/2021 04/14/2022 1 1 Encounter Details Date Type Department Care Team Description 04/14/2021 Office Visit Urgent Care in [facility] Suzanne Almodovar Pain Knee Left [place], [place] Nena, P.A.-C. (Primary Dx) [address] [facility] [address] [place] [phone] Social History Tobacco Use Types Packs/Day [...] or relatives? How often do you attend gnosticist or lutheran More than 4 time s per year 07/09/2020 services? Do you belong to any clubs or organizations No 04/19/2019 such as gnosticist groups, unions, fraternal or athletic groups, or [...] Sign Reading Time Taken Comments Blood Pressure 146/94 04/14/2021 12:05 PM CDT Pulse 83 04/14/2021 12:05 PM CDT Temperature 36.4 ??C (97.5 ??F) 04/14/2021 12:05 PM CDT Respiratory Rate - - Oxygen Saturation 96% 04/14/2021 12:05 PM CDT Inhaled Oxygen Concentration - - Weight 150 kg (329 lb 12.9 oz) 04/14/2021 12:05 PM CDT Height - - Body Mass Index 60.32 04/12/2021 8:38 PM CDT documented in this encounter Patient Instructions Patient InstructionsSuzanne Almodovar P.A.-C. - 04/14/2021 12:15 PM CDT Images from the original note were not included. Patient Education Managing Your Knee Pain About Your Knee Your knees provide support for your body and allow your legs to bend and straighten. Knees also provide flexibility and stability so you can stand, walk, run and turn. Your knee is a large joint and easily injured. A joint is where bones meet and motion happens. Your knee joint can be called a hinge joint. It works somewhat like the hinge of a door, allowing the joint to rotate backward and forward. It allows your leg to bend when sitting, standing or walking. It ismore complex than the hinge of a door, allowing other movements as well. If you have a problem with your knee, you are not alone. Many people experience knee problems. Knee problems can happen because of age, being overweight, normal ???wear and tear?? of your knee joint, participation in sports or other physical activities, or an injury. It is important to understand that having knee pain doesn???t mean you need to have surgery. This information is about common knee problems and possible ways to manage knee pain without surgery. Common Knee Problems Arthritis Arthritis is one of the most common knee problems. Two major forms are osteoarthritis and rheumatoidarthritis. Osteoarthritis Osteoarthritis is the most common form of arthritis. It is often referred to as ???wear and tear?? arthritis or degenerative joint disease. It can affect one joint or more joints and happens when cartilage - which helps cushion your joints and allows for smooth movement -- wears down over time. It isnot curable but it can be managed. In most cases the cause is not known. However, your chance of developing osteoarthritis is greater and the symptoms may get worse if you: ?? Are overweight. ?? Are older. ?? Have a joint injury. ?? Have stress to the joint. ?? Have muscle weakness. ?? Inherited a risk of osteoarthritis. Symptoms may include pain, tenderness, stiffness, loss of flexibility, a knobby feeling in your knee, a grating sensation and swelling. Rheumatoid arthritis Rheumatoid arthritis is an inflammatory disease with autoimmune features. An autoimmune disease is where antibodies, which help defend your body from infection, react against the body???s normal tissue. This may affect the entire body, including many joints. The symptoms may come and go. Rheumatoid arthritis is not curable. The good news is that there are medications that can be used to help keep thejoint from getting worse once it is diagnosed. It is not known for sure what causes rheumatoid arthritis, but it may be a combination of your heredity, lifestyle choices and environment. Being overweight or smoking may increase your risk of developing rheumatoid arthritis. Knee symptoms include pain, swelling, tenderness and morning stiffness that lasts at least 30 minutes. Other symptoms may include red and puffy hands, firm bumps of tissue under the skin in your arms, feeling tired, having a fever or experiencing weight loss. A loose body A loose body is a free-floating piece of bone or cartilage in a joint. The knee is a common site forloose bodies. Osteoarthritis, torn pieces of cartilage, chip fractures of bone, or decreased blood supply to the bone can result in loose bodies.?? Symptoms include locking of the knee, pain, swelling, ability to feel the loose body, and stiffness. Osteonecrosis Osteonecrosis is when bone tissue dies due to a lack of blood supply. This problem usually gets worse over time and requires lifelong management. The most likely cause is trauma, such as breaking a bone or dislocating a joint. Other possible causes include corticosteroids and heavy drinking. The most common knee symptoms are pain with weight bearing and stiffness. Sometimes it is difficult to tell the difference between osteonecrosis and arthritis, at least right away. Patella-femoral pain Knee pain between your knee cap and your thighbone or femur is called patella- femoral pain syndrome.Discomfort can range from minor to major. This condition may respond well to self-care methods. This knee pain can be caused by overuse, problems with alignment, sports or physical activities, trauma, falls, or a direct blow to your knee. Symptoms include pain, stiffness and mild swelling, catching the knee, grating or a grinding sensation in the knee area. Meniscus tear A meniscus tear happens when the c-shaped piece of cartilage called the meniscus is torn. The meniscus cartilage stabilizes and cushions your knee. A forceful rotation or twisting of the knee, such as with a sudden stop or turn, can cause a meniscus tear. It can also be damaged from regular ???wear and tear?? of the knee over time. Meniscus tearsare part of osteoarthritis. Symptoms include pain over the inner or outer side of the knee with twisting motions, locking, swelling and pain with movement at night. Articular cartilage injury An articular cartilage injury is damage to the tissue that lines the surface of bones within the knee. This tissue, called articular cartilage, helps protect and cushion bones during movement and weight-bearing exercises. A sudden injury to the knee may cause the articular cartilage to be damaged, resulting in pain and swelling. ???Wear and tear?? of this cartilage is what results in arthritis or degenerative joint disease. Symptoms include pain, swelling, stiffness and feeling a grinding in your knee. Tendonitis A tendon attaches a muscle to a bone. If you have tendonitis, a tendon is inflamed or irritated. Tendonitis can be caused by an injury, overuse, wear and tear, and inflammatory disease. With tendonitis, you may feel pain, tenderness or experience swelling. Non-Surgical Treatment for Knee Problems Non-surgical treatments your health care provider can recommend depends on your knee problem and theamount of pain you have. Talk with your health care provider about your specific medical condition and what treatment may work best for you. Before beginning any treatment, other conditions are ruled out first. Your health care provider may recommend treatments that include: ?? Ice. Ice helps lessen both pain and inflammation. Your health care provider may recommend placingan ice pack or even a bag of peas wrapped in a thin towel on your knee. This is especially helpful after an injury to help keep swelling down. You are usually asked to only apply ice for 10 to 15 minutes, removing the ice if your skin feels numb. ?? Elevation. Sometimes propping up your leg with the knee pain can help. You can prop it up on pillows or sit in a recliner. Your health care provider can recommend how long you should do elevation. ?? Heat. Heat can help with pain by relaxing tissue and other parts of the knee. Heat helps improve blood flow to the area. This is mostly used for pain with arthritis. Ask your health care provider about heating products such as heating pads and how to use them correctly and safely. ?? Keeping a healthy weight. Keeping a healthy weight is one of the best things you can do for your knees. Extra weight puts more stress on your joints and increases your risk of developing osteoarthritis or rheumatoid arthritis. Losing weight if you are overweight may lessen your pain. ?? Changing your activity. Take a break from any activities that cause pain. Doing so can help lessen strain on your knee, lessen irritation of a knee with arthritis and give an injury time to heal. You may need to change the way you exercise. This might include changing your regular exercise program from walking, running or jumping to swimming, biking or low impact water aerobics. ?? Gyio-yxp-gpufabm and prescription medications. Your health care provider may recommend okhn-nlb-kkqdeau medications and prescribe medications to help with pain. ?? Movement. Beginning to move a painful knee can keep the joint from getting stiff. Exercising the muscles around your knee helps with strength and flexibility. A physical therapist or your health care provider can teach you exercises you can do at home. ?? Arch supports, shoe inserts, braces. Arch supports and shoe inserts can help shift pressure away from your knee. Braces can help protect and support your knee joint. ?? Injections. Your health care provider may suggest injecting medications into your joint. These may help lessen inflammation and give some pain relief that lasts for a few weeks. ?? Acupuncture. This type of alternative medicine may help with osteoarthritis. Very thin needles are placed into your skin near the knee. Living healthy every day can help You can help your knee symptoms and reduce your risk of other health problems if you make healthy lifestyle choices: ?? Choose healthy foods. ?? Stay active and get regular exercise. ?? Keep a healthy weight. ?? Do not smoke or use other kinds of tobacco. ?? Practice stress management, self-awareness. ?? Get enough sleep. ?? Keep a strong social network by spending time with family and friends. If you need help with lifestyle changes and with managing your knee pain, ask your health care provider to refer you to another health care provider, such as a physical therapist. A physical therapist can go into more detail about pain management, lifestyle and activity changes. Working With Your Health Care Provider Questions to answer Your health care provider wants to help find the best non-surgical treatment for you. Before you meet with your health care provider to talk about your knee pain, you can help in your care by answeringthe following questions: ?? Do you exercise or play sports? ?? Do you experience any swelling? ?? When did you begin experiencing symptoms? ?? Did a specific injury make your knee start to hurt? ?? Do your symptoms last all the time or do they come and go? ?? How bad do you feel your pain or swelling is? ?? Are there activities you cannot participate in because of the pain? ?? Do you need help caring for yourself because of the pain? ?? Are you limited in your walking or ability to climb stairs because of the pain? ?? Do you have symptoms in other areas of your body? ?? Have you ever had knee pain before? If so, do you know the cause? ?? Does anything help your symptoms? ?? Does anything make your symptoms worse? ?? What medications and/or supplements do you take on a regular basis? During your exam During your examination, your health care provider may: ?? Look at your knee to check for swelling, pain, tenderness, warmth and bruising. ?? Move your lower leg in different directions to see how far you can move it. ?? Push on or pull the knee joint to check on the flexibility and strength of your knee. Deciding on treatment Many types of knee pain get better with the non-surgical treatments mentioned in this information; however, it is possible you may need to have surgery. You may need to have surgery quickly if you???vehad a new injury to the knee. Not everyone needs surgery and not everyone needs to have surgery donequickly. Everyone???s situation is different. Also, the amount of pain you feel does not determine if you should or should not have surgery. Talk with your health care provider thoroughly about your medical condition and non-surgical treatment options that may be available to you. Before making any decision, look at the positives and negatives of both non-surgical treatment and surgery. When to contact your health care provider Contact your health care provider if you: ?? Have increased or new swelling in your knee. ?? Have increased or new pain in your knee. ?? Are unable to fully extend or flex your knee. ?? See an obvious deformity in your leg or knee. ?? Have a fever over 100.4 degrees Fahrenheit, in addition to redness, pain and swelling in your knee. ?? Feel as if your knee won???t support your weight. ?? Injure your knee. If you have questions about your condition or about this information, talk with your health care provider. This material is for your education and information only. This content does not replace medical advice, diagnosis or treatment. New medical research may change this information. If you have questions about a medical condition, always talk with your health care provider. ? 2014 [facility] [employer] [facility] [employer] ([employer]). All rights reserved. [id number] documented in this encounter Progress Notes Suzanne Almodovar P.A.-C. - 04/14/2021 12:15 PM CDT CHIEF COMPLAINT/REASON FOR VISIT Left knee pain. HISTORY OF PRESENT ILLNESS Patient comes in stating that she has had left knee pain that started last Wednesday. It has been about 6 days now. She notes that the pain has gotten worse and it is very excruciating. It is right on the lateral side of her left kneecap. She notes that it pops and grinds when she is going up and downstairs. She cannot bend it. She cannot straighten it very well and that it feels unsteady and at times it feels like it locks up on her and she cannot bend it at all. 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 OBJECTIVE PHYSICAL EXAMINATION Vital Signs: Noted in the chart. General: She is a pleasant 35-year-old female in no acute distress at rest. Extremities: Assessment of her left knee, patient has pain on the lateral side of her knee between the tibia and the femur. She notes that she has pain on the lateral side with a medial pivot shift. She has pain with full extension and with trying to flex beyond 90 degrees, it is very painful. She notes that it feels like it radiates up and down that leg, but the pain is centered right over that lateral side around the menisci. She has no palpable cords. No pain to palpation in the calf or the thigh, and she has positive pedal pulses. DIAGNOSTICS An x-ray is done. ASSESSMENT / PLAN #1 Left knee pain, suspect meniscal tear PLAN: I am going to put her in an Uri wrap. Have her take some naproxen daily. She has taken some ibuprofen and Tylenol and that has not helped, but we are going to set her up with Ortho for further evaluation. Patient understands and agrees with the plan. documented in this encounter Plan of Treatment Scheduled Procedures Name Priority Associated Diagnoses Date/Time COLONOSCOPY Diarrhea Scheduled Referrals Name Type Priority Associated Order Schedule Diagnoses Orthopedic Surgery - Outpatient Referral Routine Pain Knee Lef t Expected: Knee non surgical 04/14/2021 consult (clinic) (Approximat e), Expires: 04/14/2024 documented as of this encounter Results DX Knee Left 3 Views (04/14/2021 12:41 PM CDT) Anatomical Region Laterality Modality Lower Extremity, Knee, Musculoskeletal RST LOS, Left Digital Radiography Musculoskeletal ARZ LOS, Muskuloskeletal FLA LOS Specimen (Source) Anatomical Collection Method Collection Time Re ceived Time Location / / Volume Laterality 04/14/2021 12:45 PM CDT Impressions 04/14/2021 12:45 PM CDT No fracture or dislocation left knee. Mild medial compartment narrowing and small osteophytes. Small l eft knee joint effusion and/or synovitis. Mild medial compartment narro wing right knee. Narrative 04/14/2021 12:45 PM CDT EXAM: DX KNEE LEFT 3 VIEWS Procedure Note Akosua Moore M.D. - 04/14/2021Form atting of this note might be different from the original. EXAM: DX KNEE LEFT 3 VIEWS IMPRESSION: No fracture or dislocation left knee. Mi ld medial compartment narrowing and small osteophytes. Small l eft knee joint effusion and/or synovitis. Mild medial compartment narro wing right knee. Suzanne Almodovar P.A.-C. IMG DIAGNOSTIC IMAGING PROCE DURES documented in this encounter Visit Diagnoses Diagnosis Pain Knee Left - Primary Pain Knee Left documented in this encounter Additional Health Concerns Assessment Noted Time PHQ-9 Depression Total Score: 9 07/08/2020 3:59 PM BRAND ADVISOR documented as of this encounter Care Teams Respiratory Clinician Relationship Specialty Start Date End Date Alberto Locke M.D. PCP - General Family Medicine 04/27/19 [address] [place] [id number] documented as of this encounter
--- OUTSIDE RECORDS SUMMARY | 2022-06-29 09:25 | XMS_ITS | Encounter Summary ---
:1985 Author Organization [facility] Address [address] [place] [address] Care Team Providers Name Role Phone Alberto Locke M.D. Primary Care Provider Encounter Details Date Type Department Care Team Description 07/08/2020 Admin Visit Department of Family Medicine, [facility] [place] in [place], [place] [address] [place] [address] [facility] [phone] Social History Tobacco Use Types Packs/Day Years [...] or relatives? How often do you attend roman catholic or cheondoism More than 4 time s per year 07/09/2020 services? Do you belong to any clubs or organizations No 04/19/2019 such as roman catholic groups, unions, fraternal or athletic groups, or [...] Date Last Indicated Resolved Time COVID19 Pending 07/08/2020 07/08/2020 07/09/2020 5:11 AM BLUE LINE TRIMMER Assessment Noted Time PHQ-9 Depression Total Score: 9 07/08/2020 3:59 PM BLUE LINE TRIMMER documented as of this encounter Care Teams Dialysis Clinical Manager Relationship Specialty Start Date End Date Alberto Locke M.D. PCP - General Family Medicine 04/27/19 [address] [place] [address] documented as of this encounter
--- OUTSIDE RECORDS SUMMARY | 2022-06-29 09:25 | XMS_ITS | Encounter Summary ---
:1985 Author Organization [facility] Address [address] [place] [address] Care Team Providers Name Role Phone Alberto Locke M.D. Primary Care Provider Reason for Visit Outpatient (Routine) - Closed Specialty Diagnoses / Procedures Referred By Contact Refer red To Contact Tammie Snyder APRN, C.NJud, M [facility] M.S.N. [address] [place] [phone] Referral ID Status Reason Start Date Expiration Date Visits Requ ested Visits Authorized [id number] Closed 07/09/2020 07/09/2021 1 1 Encounter Details Date Type Department Care Team Description 07/09/2020 Office Visit Urgent Care in [facility] Tammie Snyder APRN, C.NLebron., M.S.N. [address] [place] [phone] Pharyngitis [place], [place] Bree Burt L.PBrittaneyNBrittaney (Primary Dx) [address] [place] [address] Social History Tobacco Use Types [...] or relatives? How often do you attend gnosticism or confucianist More than 4 time s per year 07/09/2020 services? Do you belong to any clubs or organizations No 04/19/2019 such as gnosticism groups, unions, fraternal or athletic groups, or [...] 12 months, you worried that your food Somedelilah mes true 07/09/2020 would run out before [...] documented as of this encounter Progress Notes Bree Burt L.P.N. - 07/09/2020 3:45 PM CST Strep test complete NUE INTEGRITY ANALYST documented in this encounter Miscellaneous Notes Result Encounter Note - Suzanne Almodovar P.A.-C. - 07/10/2020 12:53 PM REVENUE INTEGRITY ANALYST Results were negative for strep. NUE INTEGRITY ANALYST documented in this encounter Plan of Treatment Scheduled Procedures Name Priority Associated Diagnoses Date/Time COLONOSCOPY Diarrhea documented as of this encounter Procedures Procedure Name Priority Date/Time Associated Diagnosis Comme nts GROUP A STREP PCR, STAT 07/09/2020 4:04 PM Pharyngitis Acut e Results for this THROAT REVENUE INTEGRITY ANALYST procedure are i n the results section. documented in this encounter Results Streptococcus Group A, Molecular Detection, PCR, Throat (07/09/2020 4:04 PM REVENUE INTEGRITY ANALYST) P athologist Signature Group A Strep Negative Negative 07/09/2020 [facility] PCR, Throat 4:36 PM REVENUE INTEGRITY ANALYST Specimen Anatomical Collection Method Collection Time Receive d Time (Source) Location / / Volume Laterality Varies (Throat) 07/09/2020 4:04 PM 2019 4:04 REVENUE INTEGRITY ANALYST PM REVENUE INTEGRITY ANALYST Erlin Link P.A.-C. LAB MICROBIOLOGY - GENERAL O RDERABLES Performing Organization Address City/State/ZIP Code Phon e Number [facility]- [address] [place], [place] [address] [facility] [place] [address] System in [place] [address] documented in this encounter Visit Diagnoses Diagnosis Pharyngitis Acute - Primary documented in this encounter Additional Health Concerns Assessment Noted Time PHQ-9 Depression Total Score: 9 07/08/2020 3:59 PM REVENUE INTEGRITY ANALYST documented as of this encounter Care Teams Contracting Manager Relationship Specialty Start Date End Date Alberto Locke M.D. PCP - General Family Medicine 04/27/19 [address] [place] [address] documented as of this encounter
--- OUTSIDE RECORDS SUMMARY | 2022-06-29 09:25 | XMS_ITS | Encounter Summary ---
:1985 Author Organization [facility] Address [address] [place] [address] Care Team Providers Name Role Phone Alberto Locke M.D. Primary Care Provider Encounter Details Date Type Department Care Team Description 03/12/2020 Orders Only RST PCP [facility] MNT Alberto Locke M. D. [address] [place], [place] [phone] (Wo rk) Social History [...] or relatives? How often do you attend zoroastrianism or religion More than 4 time s per year 07/09/2020 services? Do you belong to any clubs or organizations No 04/19/2019 such as zoroastrianism groups, unions, fraternal or athletic groups, or [...] documented as of this encounter Care Teams Certified Pesticide Applicator Relationship Specialty Start Date End Date Alberot Locke M.D. PCP - General Family Medicine 04/27/19 [address] [place] [phone] documented as of this encounter
--- OUTSIDE RECORDS SUMMARY | 2022-06-29 09:25 | XMS_ITS | Encounter Summary ---
:1985 Author Organization [facility] Address [address] [place] [address] Care Team Providers Name Role Phone Alberto Locke M.D. Primary Care Provider Reason for Referral Outpatient (Routine) - Closed Specialty Diagnoses / Procedures Referred By Contact Refer red To Contact Diagnoses Insertion Intrauterine Device Leonora Reaves APRN, [facility] Region Procedures IUD - Insertion or Reinsertion w/removal C.N.P. [address] [place] [address] Referral ID Status Reason Start Date Expiration Date Visits Requ ested Visits Authorized [id number] Closed 08/07/2020 08/07/2021 1 1 ARC OPERATOR Reason for Visit Reason Comments Contraception Outpatient (Routine) - Closed Specialty Diagnoses / Procedures Referred By Contact Refer red To Contact Obstetrics and Diagnoses PAR Leonora Reaves APRN, [facility] Gynecology C.N.P. [address] [place] [address] Referral ID Status Reason Start Date Expiration Date Visits Requ ested Visits Authorized [id number] Closed 07/24/2020 07/24/2021 1 1 Encounter Details Date Type Department Care Team Description 08/07/2020 Office Visit Department of Leonora Reaves, Insertion In trauterine Obstetrics and JOSEFA C.N.P. Device (Primary Dx) Gynecology in [place] [address] [facility] [place] [address] [facility] [address] [place] [phone] [address] (Work) [phone] Social History Tobacco Use Types Packs/Day Years [...] or relatives? How often do you attend scientologist or samaritan More than 4 time s per year 07/09/2020 services? Do you belong to any clubs or organizations No 04/19/2019 such as scientologist groups, unions, fraternal or athletic groups, or [...] Sign Reading Time Taken Comments Blood Pressure 138/82 08/07/2020 10:53 AM SUB ARC OPERATOR Pulse - - Temperature - - Respiratory Rate - - Oxygen Saturation - - Inhaled Oxygen Concentration - - Weight 150 kg (330 lb 11 oz) 08/07/2020 10:53 AM SUB ARC OPERATOR Height - - Body Mass Index 60.85 03/05/2020 3:36 PM CDT documented in this encounter Procedure Notes Leonora Reaves, JANE-ADONIS, R.N. - 08/07/2020 11:00 AM CSTAssociated Order(s): IUD - Insertion or Reinsertion w/removal Post-Procedure Diagnose(s): Insertion Intrauterine Device IUD - Insertion or Reinsertion w/removal Date/Time: 08/07/2020 11:30 AM Performed by: Leonora Reaves WHNP-BC RMarcos. Authorized by: Leonora Reaves WHNP-BC RRoverto Care team members present 1. Alison Monsivais L.P.N. PROCEDURE DETAILS Procedure: Insertion Pelvic exam performed: no GC/Chlamydia: Not indicated Tenaculum applied to cervix: yes Uterus sounded: yes Uterus sound depth (cm): 8 Strings length (cm): 4 cm IUD type: 1 each levonorgestreL 20 mcg/24 hours (6 yrs) 52 mg CONSENT Consent obtained: written UNIVERSAL PROTOCOL All relevant documentation and testing were reviewed and available. All required blood products, implants, devices and or special equipment were made available as applicable. Pre-procedure verificationwas conducted and the correct site was marked if required. A fire risk assessment was done as applicable. The procedural time-out was conducted prior to performing the procedure and confirmed in a procedural pause. PRE-PROCEDURE DETAILS Assessment - reasonably exclude based on: PREG criteria Indications: Contraception Appropriate hand hygiene, gown, cap, mask, protective eyewear, sterile gloves, skin preparation, sterile drape, and strict aseptic technique were utilized as applicable for the procedure.: yes Site preparation: Povidone-iodine SEDATION / ANESTHESIA Anesthesia method: none POST-PROCEDURE DETAILS Procedure completed successfully: yes Complications: complications occurred with the details below COMMENTS This is the second attempt at IUD insertion in approximately 2 weeks time. Today, as with the previous attempt I was able to sound the uterus with a metal sound to 8 cm. When trying to insert the IUD insertion device, resistance is met at approximately 6 cm. Repositioning of the patient, different size speculum were done. Same results. IUD was inserted to 6 cm, strings were left at 4 cm. Pelvic ultrasound in 2 weeks to varify position of the IUD. She is not sexually active, and will continue to be abstinent until appropriate location of the IUD is verified. MASTER BARBER ARC OPERATOR documented in this encounter Plan of Treatment Scheduled Procedures Name Priority Associated Diagnoses Date/Time COLONOSCOPY Diarrhea documented as of this encounter Procedures Procedure Name Priority Date/Time Associated Diagnosis Comme nts PA INSERT OF Routine 08/07/2020 11:00 Insertion Results for this INTRAUTERINE DEVICE AM SUB ARC OPERATOR Intrauterine Device p rocedure are in the results section. documented in this encounter Results PA INSERT OF INTRAUTERINE DEVICE (08/07/2020 11:00 AM SUB ARC OPERATOR) Narrative MMODAL - 08/07/2020 11:00 AM SUB ARC OPERATOR Leonora Reaves WHNP-BC RBrittaneyN. ? 08/07/2020 11:34 AM IUD - ??Insertion or Reinsertion w/remov al Date/Time: 08/07/2020 11:30 AM Performed by: Leonora Reaves WHNP-BC, RBrittaney N. Authorized by: Leonora Reaves WHNP-BC R BrittaneyN. Care team members present 1. Alison Monsivais L.P.N. PROCEDURE DETAILS ??Procedure: ??Insertion ??Pelvic exam performed: no ?GC/Chlamydia: ??Not indicated ??Tenaculum applied to cervix: yes ?Uterus sounded: yes ?Uterus sound depth (cm): ??8 ??Strings length (cm): ??4 cm ??IUD type: 1 each levonorgestreL 20 mc g/24 hours (6 yrs) 52 mg CONSENT Consent obtained: written UNIVERSAL PROTOCOL All relevant documentation and testing w ere reviewed and available. All required blood products, implants, devic es and or special equipment were made available as applicable. Pre-proced ure verification was conducted and the correct site was marked if required. A fire risk assessment was done as applicable. The procedural time-out w as conducted prior to performing the procedure and confirmed in a procedu ral pause. PRE-PROCEDURE DETAILS ?? Assessment - reas onably exclude based on: ??PREG criteria ??Indications: ??Contraception ??Appropriate hand hygiene, gown, cap, mask, protective eyewear, sterile gloves, skin preparation, sterile drape, and strict aseptic technique were utilized as applicable for the procedure .: yes ?Site preparation: ??Povidone-iodine SEDATION / ANESTHESIA Anesthesia method: none POST-PROCEDURE DETAILS ??Procedure completed successfully: yes ?Complications: complications occurred with the details below ?? COMMENTS ?? This is the second attempt at IUD in [facility] in approximately 2 weeks time. Today, as with the previous attemp t I was able to sound the uterus with a metal sound to 8 cm. When trying to insert the IUD insertion device, resistance is met at approximate ly 6 cm. Repositioning of the patient, different size speculum were do ne. Same results. IUD was inserted to 6 cm, strings were left at 4 cm. Pelv ic ultrasound in 2 weeks to varify position of the IUD. She is not sexually active, and will continue to be abstinent until appropriate location of the IUD is verified. Kendal Erazo APRNNJud OB GYNE ORDERABLES Performing Organization Address City/State/ZIP Code Phon e Number MMODAL MMODAL NA documented in this encounter Visit Diagnoses Diagnosis Insertion Intrauterine Device - Primary documented in this encounter Administered Medications Inactive Administered Medications - up to 3 most recent administrations Medication Order MAR Action Action Date Dose Rate Site levonorgestreL 20 mcg/24 hours (6 Given 08/07/2020 11:30 AM SUB ARC OPERATOR 1 each yrs) 52 mg IUD 1 each (MIRENA) 1 each, intrauterine, One-Time Injection, Starting on Wed08/07/20 at 1130, For 1 dose documented in this encounter Additional Health Concerns Assessment Noted Time PHQ-9 Depression Total Score: 9 07/08/2020 3:59 PM SUB ARC OPERATOR documented as of this encounter Care Teams Roof Panel Hanger Relationship Specialty Start Date End Date Alberto Locke M.D. PCP - General Family Medicine 04/27/19 [place] [address] documented as of this encounter
--- OUTSIDE RECORDS SUMMARY | 2022-06-29 09:25 | XMS_ITS | Encounter Summary ---
:1985 Author Organization [facility] Address [address] [place] [address] Care Team Providers Name Role Phone Alberto Locke M.D. Primary Care Provider Encounter Details Date Type Department Care Team Description 11/22/2020 Orders Only [facility] P[facility] Sa emma Lemos M.D. [address] [place], [place] [phone] (Wo rk) Social History Tobacco Use Types [...] or relatives? How often do you attend druze or congregation More than 4 time s per year 07/09/2020 services? 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 PCP - General Family Medicine 04/27/19 [address] [place] [phone] documented as of this encounter
--- OUTSIDE RECORDS SUMMARY | 2022-06-29 09:25 | XMS_ITS | Encounter Summary ---
:1985 Author Organization [facility] Address [address] [place] [address] Care Team Providers Name Role Phone Alberto Locke M.D. Primary Care Provider Reason for Visit Reason Onset Date Comments Outpatient COVID-19 Testing 07/08/2020 Encounter Details Date Type Department Care Team Description 07/08/2020 External Outreach Department of Yamel Sandoval Infection Upper Medicine, [place] [facility] (Primary Clinic, in [place], [address]) [place], [place] [address] [address] [place], [place] [phone] (Work) [phone] Social History Tobacco Use Types Packs/Day Years [...] or relatives? How often do you attend nondenominational or buddhism More than 4 time s per year 07/09/2020 services? Do you belong to any clubs or organizations No 04/19/2019 such as nondenominational groups, unions, fraternal or athletic groups, or [...] documented as of this encounter Progress Notes Lydia Gill R.N. - 07/08/2020 11:18 AM CST Encounter created for the drive-through COVID-19 testing. ICK KLEANER OPERATOR documented in this encounter Plan of Treatment Scheduled Procedures Name Priority Associated Diagnoses Date/Time COLONOSCOPY Diarrhea documented as of this encounter Procedures Procedure Name Priority Date/Time Associated Diagnosis Comme nts SARS CORONAVIRUS-2 Routine 07/08/2020 1:34 PM Infection Upper Results for this RNA, V KERRICK KLEANER OPERATOR Respiratory procedure are i n the results section. documented in this encounter Results SARS Coronavirus-2 RNA, V Symptomatic (07/08/2020 1:34 PM KERRICK KLEANER OPERATOR) [facility] Method Time Signature SARS-CoV-2 Swab, 07/09/2020 ECLR Specimen Nasopharynx 5:11 AM KERRICK KLEANER OPERATOR Source SARS CoV-2 Undetected Undetected 07/09/2020 ECLR RNA, TMA 5:11 AM KERRICK KLEANER OPERATOR Comment: SARS-CoV-2 RNA absent. This result does not rule out COVID-19 in the patient, as the sensitivity of the test depends o n the timing of the specimen collection and the quality of the specim en. Result should be correlated with patient's history and clinical presentat ion. ----ADDITIONAL INFORMATION---- This test is performed using the Aptima SARS-CoV-2 assay ([employer] which has received Emergency Use Authori zation (EUA) by the U.S. Food and Drug Administration. Fact sheets for this Emergency Use Autho rization (EUA) assay can be found at the following links: For Healthcare Providers: https://www.fd a.gov/media/932617/download For Patients: https://www.fda.gov/media/ 496374/download Specimen Anatomical Collection Method Collection Time Receive d Time (Source) Location / / Volume Laterality Varies 07/08/2020 1:34 PM 0 9:39 (Nasopharynx) KERRICK KLEANER OPERATOR PM KERRICK KLEANER OPERATOR Venu Collins P.A.-C. LAB MICROBIOLOGY - GENERAL O RDERABLES Performing Organization Address City/State/ZIP Code Phon e Number [facility] [address] [place] [address] [phone] [facility] [place] [address] System [address] documented in this encounter Visit Diagnoses Diagnosis Infection Upper Respiratory - Primary documented in this encounter Additional Health Concerns Infection Onset Date Last Indicated Resolved Time COVID19 Pending 07/08/2020 07/08/2020 07/09/2020 5:11 AM KERRICK KLEANER OPERATOR Assessment Noted Time PHQ-9 Depression Total Score: 9 07/08/2020 3:59 PM KERRICK KLEANER OPERATOR documented as of this encounter Care Teams Clerical Adjuster Relationship Specialty Start Date End Date Alberto Locke M.D. PCP - General Family Medicine 04/27/19 [address] [place] [phone] documented as of this encounter
--- OUTSIDE RECORDS SUMMARY | 2022-06-29 09:25 | XMS_ITS | Encounter Summary ---
:1985 Author Organization [facility] Address [address] [place] [address] Care Team Providers Name Role Phone Alberto Locke M.D. Primary Care Provider Reason for Visit Reason Onset Date Comments Outpatient COVID-19 Testing 03/05/2020 Encounter Details Date Type Department Care Team Description 03/05/2020 External Outreach Department of Employer Based, [facility], Covid Serology Screening For Other [facility], in Testing Viral [place], [place] (COVID-19) (Primary [address]) [place] [address] Social History Tobacco Use Types [...] or relatives? How often do you attend holiness or hoahaoism More than 4 time s per year 07/09/2020 services? Do you belong to any clubs or organizations No 04/19/2019 such as holiness groups, unions, fraternal or athletic groups, or [...] to pay for the very basics like demandmartw hat hard 07/09/2020 food, housing, medical care, [...] documented as of this encounter Progress Notes Dawna Madera L.P.N. - 03/05/2020 9:04 AM CDT Encounter created for COVID-19 screening. documented in this encounter Plan of Treatment Scheduled Procedures Name Priority Associated Diagnoses Date/Time COLONOSCOPY Diarrhea documented as of this encounter Procedures Procedure Name Priority Date/Time Associated Diagnosis Comme nts SARS-COV-2 IGG, Routine 03/05/2020 9:10 AM Encounter For Resul ts for this DONALD, EMP SCRN, CDT Screening For Other proc edure are in BLOOD SPOT Viral Diseases the results (COVID-19) section. documented in this encounter Results (ABNORMAL) SARS-CoV-2 IgG, DONALD, Emp Scrn, Blood Spot (03/05/2020 9:10 AM CDT) [facility] Method Time Signature SARS-CoV-2 Reactive (A) Negative 03/06/2020 [facility] IgG Emp Scrn, 3:24 PM CDT Ab Comment: This result is preliminary. ??False reac tive results can occur with this test. ??Do not assum e that you are protected based on these re sults alone. ?? Confirmation using another SARS-CoV-2 an tibody test, performed on blood drawn from a vein, is necessary to determine if you truly h ave antibodies. ?? Testing was performed using the [employer] N [id number] DONALD (IgG). ??This test has received Emergency Use Authorization (EUA) by the U.S. Food and Drug Administration and is used per assistant drafter's instructions, but it is modified from the assistant drafter's instructions wit h a bridging study to include dried blood spot specimens. ? ? Performance characteristics were verifie d by [facility] in a manner consistent with CLIA require ments. Specimen Anatomical Collection Method Collection Time Receive d Time (Source) Location / / Volume Laterality Blood (Blood, 03/05/2020 9:10 AM 03/05/20 20 8:50 Venous) CDT PM CDT Covid Serology Testing Employer Based LAB MICROBIOLOGY - BLOOD ORDERABLES Performing Organization Address City/State/ZIP Code Phon e Number [facility] [address] [place], [place] [address] [place] [address] [place] [address] Laboratory Medicine and Pathology [address] [place] documented in this encounter Visit Diagnoses Diagnosis Encounter For Screening For Other Viral Diseases (COVID-19) - Primary documented in this encounter Additional Health Concerns Assessment Noted Time PHQ-9 Depression Total Score: 11 03/05/2020 4:06 PM CD T documented as of this encounter Care Teams Service Line Coordinator Relationship Specialty Start Date End Date Alberto Locke M.D. PCP - General Family Medicine 04/27/19 [address] [place] [phone] documented as of this encounter
--- OUTSIDE RECORDS SUMMARY | 2022-06-29 09:25 | XMS_ITS | Encounter Summary ---
:1985 Author Organization [facility] Address [address] [place] [id number] Care Team Providers Name Role Phone Alberto Locke M.D. Primary Care Provider Reason for Referral Outpatient (Routine) - Closed Specialty Diagnoses / Procedures Referred By Contact Refer red To Contact Tammie Snyder APRN, C.NJud, M [facility] NEHEMIAH Kent M.S.N. [address] [place] [phone] Referral ID Status Reason Start Date Expiration Date Visits Requ ested Visits Authorized [id number] Closed 07/09/2020 07/09/2021 1 1 Scheduling Instructions At [facility] ([facility]) ONLY. Please schedule as soon as possible within the next 24-48 hours. IFIED WELDER Reason for Visit Appointment Request (Routine) - Closed Specialty Diagnoses / Procedures Referred By Contact Refer red To Contact Express or Urgent Care Referral ID Status Reason Start Date Expiration Date Visits Requ ested Visits Authorized [id number] Closed 07/09/2020 07/09/2021 1 1 Encounter Details Date Type Department Care Team Description 07/09/2020 Telemedicine [facility] Tammie Can Phar yngitis Acute Care at [facility] JOSEFA C.N.PBrittaney, (Primary Dx) [address] CUMMINGS M.S.NBrittaney [place], [place] [address] [place] [phone] [place], [place] [phone] Social History Tobacco Use Types Packs/Day Years [...] How often do you attend taoist or spiritism More than 4 time s per year [...] AM CDT documented as of this encounter Patient Instructions Patient InstructionsLillian, Tammie Warren APRN, C.N.P., M.S.N. - 07/09/2020 11:20 AM CST Images from the original note were not included. Patient Education Sore Throat Care Sore Throat Sore throats are common. Read this material to help understand what causes a sore throat and what you can do to care for it so you feel better. Causes of a sore throat Viral infection Most sore throats are caused by a viral infection (virus). Viral infections include: ?? Cold (sneezing; runny nose; cough; hoarseness; itchy, teary, or red eyes). ?? Influenza (flu). ?? Croup (harsh, barking cough). ?? Mononucleosis (mono). A sore throat caused by a viral infection does not need to be tested or treated with antibiotic medication. Antibiotic medications have no effect on viral infections. Antibiotic medications only help bacterial infections. A sore throat caused by a viral infection gets better on its own with at-home care, usually within 5to 10 days. See ???Sore Throat Care?? for things you can do to help feel better as your sore throatcaused by a virus runs its course. Bacterial infection Less than 30 percent of sore throats are caused by a bacterial infection (bacteria). ???Strep throat?? is an infection caused by the bacteria Streptococcus pyogenes, also known as Group A Streptococcus. Group A Streptococcus is the most common bacteria to cause a sore throat. However, only 20 to 30 percent of children who are 3 to 15 years old have strep as the cause of their sore throat. See ???Test and treatment for a strep throat infection.?? Temporary swelling and redness of the tonsils, called tonsillitis, can happen with either a viral orbacterial throat infection. Important to know Some people have the misconception that every sore throat needs to be tested and treated right away.You are not endangering your health or your child???s health if you do not have a test right away. While it is important to treat a strep throat infection to help prevent rare, but serious complications such as acute rheumatic fever (a disease that affects the heart) or complex infections, treatmentcan wait 7 days after symptoms begin without risk of complications. If you or your child has a sore throat, consider waiting at least 48 hours before calling your health care provider for an appointment. You may find that your sore throat gets better by doing the at-home care suggestions on page 3. Other causes of a sore throat ?? Allergies. Having seasonal allergies or allergies to pet dander, molds, dust and pollen can causea sore throat. It can be made worse by postnasal drip, which can irritate and inflame the throat. ?? Dryness. Dry indoor air can make your throat feel rough and scratchy, especially when you first wake up. Breathing through your mouth -- often because of a stuffy nose -- also can cause a dry, sore throat. ?? Irritants. Smoking, secondhand smoke, household chemicals, and outdoor air pollution can cause ongoing throat irritation and sore throat. Chewing tobacco, drinking alcohol and eating spicy foods also can irritate your throat. ?? Chronic or frequent sinus infections. Drainage from the nose can irritate the throat or spread infection. Clearing your throat often also can cause a sore throat. ?? Throat muscle strain. Yelling at a sporting event, trying to talk to someone in a noisy environment, or talking for long periods without rest can result in a sore throat and hoarseness. ?? Gastroesophageal reflux disease (GERD). GERD is a digestive system disorder in which stomach acidor other stomach contents back up into the esophagus. Along with a sore throat, GERD can cause hoarseness and the sensation of a lump in your throat. ?? An abscess or epiglottitis. An abscess (infected area in the throat) or epiglottitis (the small cartilage ???lid?? that covers the windpipe swells) can cause a sore throat. Both causes can block the airway, which is a medical emergency. Your health care team can determine what further evaluation, testing, and treatment is needed if your sore throat is not caused by a viral or bacterial infection. Sore Throat Care At-home care If you or your child has a sore throat, try the following to help it feel better. ?? Take a pain reliever as needed. Follow product instructions. ? Acetaminophen (Tylenol???, generic acetaminophen) ? Ibuprofen (Advil???, Motrin IB???, generic ibuprofen) ? Naproxen (Aleve???, generic naproxen) ?? Get plenty of sleep and rest your voice. ?? Drink plenty of fluids to keep your throat lubricated and moist to ease swallowing and to preventdehydration. ?? Drink beverages and eat foods that are soothing and soft. Limit or avoid spicy foods or acidic foods such as citrus fruits and orange juice if they irritate your throat. ?? Do not smoke or let anyone smoke around you or your child. ?? Avoid cleaning products, paint fumes and smoke that irritate your throat. ?? Gargle with saltwater several times a day to help relieve throat pain. Mix 1/4 teaspoon (1.4 grams) of table salt in 8 ounces (237 milliliters) of warm water. Gargle the solution and then spit it out. ?? Humidify the air in your home. Use a cool-mist humidifier or vaporizer to add moisture to the air. Clean it daily because bacteria and molds can grow in some humidifiers. Or sit for several minutes in a steamy bathroom. ?? Suck on hard candy or lozenges. Because these are a choking hazard, children 4 years old and younger should not use them. ?? Use saline nasal spray to keep mucous membranes moist. Although a number of alternative treatments are commonly used to treat sore throat, evidence is limited about what works and what does not. Check with your health care provider before using any herbal remedies, as they can interact with prescription medications and may not be safe for children, women and people with certain health conditions. Avoid close contact with people until your symptoms end and wash your hands often to prevent spreading your sore throat to others. Test and treatment for a strep throat infection Your health care provider will determine if a test for strep throat is needed. He or she may: ?? Ask about your symptoms. ?? Take your temperature. ?? Look at your throat and tonsils, and likely your ears and nasal passages. ?? Gently feel your neck to check for swollen glands (enlarged lymph nodes). ?? Listen to your breathing. Most often, a strep throat test is not needed. If a test is needed, your health care provider rubs asterile swab over your tonsils and the back of your throat to get a sample of secretions to be tested for bacterial infection in your throat. It is not painful but it may cause brief gagging. If the strep throat test is negative, you likely have a viral infection and do not need to follow-upfurther. If the test shows or confirms that you have a strep throat infection, your health care provider willlikely prescribe an antibiotic medication to treat the infection and prevent complications. It is important to take all of the medication exactly as instructed by your health care provider or pharmacist to destroy the bacteria. If you do not, the infection could get worse or come back, you could have other complications, and the infection could spread to others. Once you have taken an antibiotic for at least 24 hours, have no fever and feel better, you may return to work, school or daycare. Please note: If you have been around someone who has strep throat but you do not have symptoms, you probably do not need to be tested. A note about antibiotic medication It is important to take an antibiotic medication only when it is needed. Taking an antibiotic when it is not needed can be harmful and may lead to side effects such as diarrhea, rash, nausea and stomach pain. More severe side effects may rarely happen, including life-threatening allergic reactions, kidney toxicity and severe skin reactions. Taking unnecessary antibiotics can lead to antibiotic resistance. This means an antibiotic may not help with future bacterial infections. Common antibiotics cannot kill infections caused by resistant germs. When to Contact Your Health Care Provider Get emergency care right away if you have or your child has: ?? Chest pain. ?? Difficulty breathing. ?? Shortness of breath. Contact your health care provider if you have or your child has a sore throat that is severe, lasts longer than one week, recurs several times, or if you have any of the following along with a sore throat: ?? Difficulty swallowing anything, including saliva. Young children tend to drool. ?? Trouble talking or opening your mouth. ?? A temperature lasting longer than 48 hours. Or a temperature recurs over several days. If your child is younger than three months old and has a temperature, call your child???s silvia care provider right away. ?? Symptoms such as joint pain, body aches, headache, earache, rash, sore jaw, nausea or vomiting. ?? White patches or pus on your tonsils or the back of your throat. ?? Sore, swollen lymph nodes (glands) in your neck, or a lump in your neck. ?? Hoarseness lasting more than two weeks. ?? Blood in saliva or phlegm. ?? Symptoms of dehydration (dry, sticky mouth; thirst; decreased urination or fewer wet diapers; fewor no tears when crying; sleepiness or tiredness; muscle weakness; headache; dizziness or lightheadedness). If you or your child is diagnosed with strep throat, contact your health care provider if: ?? You do not feel better or continue to have a temperature after taking the antibiotic for 48 hours. ?? You continue to have a sore throat, temperature, pain or swelling in the joints, shortness of breath or a rash after treatment is finished, even as long as three weeks after the infection. If you have questions or concerns about your sore throat or medication, contact your health care provider. Preventing Infections The germs that cause viral and bacterial infections are contagious. To help prevent spreading infection, follow these tips and teach children to do the same: ?? Wash your hands thoroughly and often, especially after using the toilet, before eating, and aftersneezing or coughing. ?? Use an alcohol-based hand gas meter repairer if washing your hands with soap and water is not possible. ?? Cough or sneeze into a tissue and throw it away. If necessary, cough or sneeze into your arm. ?? Do not share food, drinking glasses, eating utensils, and other personal items. ?? Do not touch public phones or drinking fountains with your mouth. ?? Regularly clean phones, TV remotes and computer keyboards with sanitizing cleanser. When you travel, clean phones and remotes in your hotel room. ?? If you smoke, quit. Smoking increases the likelihood of infections. Talk with your health care provider if you need help quitting. ?? Avoid close contact with people who are sick. ?? Stay indoors as much as possible on high-pollution days. ?? Wear a filtering mask when cleaning to avoid inhaling dust or airborne particles from cleaning products. ?? Throw away your toothbrush and use a new one after starting an antibiotic. Keep in mind that you are more likely to get an infection if you have lowered immunity. Common causes of lowered immunity include stress, fatigue, poor diet, diabetes, treatment with steroids or chemotherapy drugs, and HIV. This material is for your education and information only. This content does not replace medical advice, diagnosis or treatment. New medical research may change this information. If you have questions about a medical condition, always talk with your health care provider. ? 2013 [facility] for Medical Education and Research ([facility]). All rights reserved. [id number] IFIED WELDER documented in this encounter Progress Notes Tammie Snyder APRN, C.N.P., M.S.N. - 07/09/2020 11:20 AM CST CHIEF COMPLAINT Sore throat x 1 week Consult conducted via real-time audio/video technology by Tammie Snyder APRN C.N.PBrittaney in [facility] patient in their home. Visit was conducted in the setting of the COVID-19 pandemic. 10 minutes was taken to complete this video appointment. HISTORY OF PRESENT ILLNESS Carol Cooley is a 34 y.o. female presents with a sore throat for 7 days. History is provided byPatient. The pain is reported as 5 of 10 using the Numeric pain scale. Associated symptoms include nasal congestion, headache and swollen lymph nodes. Denies fever, cough, nausea/vomiting, ear pain, dysphonia, difficulty fully opening the mouth, muffled voice, difficulty swallowing and neck stiffness. Patient is able to drink fluids: no. No known COVID-19 exposure however the patient does work in [employer] in [place]. She wears appropriate personal protective equipment while at work. Recent exposure to individuals with strep throat: no. Strep throat in the past 30 days: no. Home therapy includes Ibuprofen , Acetaminophen and Increased fluid intake Last dose of medication: Ibuprofen taken this morning, with mild reduction in pain. Patient requests that she have strep testing completed. Physical exam: General Appearance: Alert, oriented, and in no acute distress. Well appearing. Speech clear. Speaking full sentences. Eyes: Without conjunctival injection, no drainage present. Nose: No drainage present. Ears: hearing grossly intact. Pharynx: Erythematous, 1+ tonsillar swelling, no exudate. Mucous membranes moist. Uvula midline, no peritonsillar swelling, no trismus. Lymph Nodes: Reports tender cervical adenopathy. Lungs: Respirations not labored, symmetric expansion. No audible wheezing or stridor. IRP: #1 Acute pharyngitis #2 COVID undetected on testing completed July 07, 2020 Centor score was 2. Throat swab for PCR strep testing to be obtained: yes. Due to persistent sore throat for 1 week and the patient's desire for strep testing I have ordered a strep swab to be completed at the [facility] via nurse only visit. Treat per protocol. If strep screen positive, a prescription for Penicillin V Potassium 500 mg PO, every 12 hours for 10days, tablet, will be sent to [facility] in [place]. Strep pharyngitis considered contagious until treated for 24 hours, discard toothbrush after taking antibiotics for 24 hours. Medication and side effects discussed. Symptomatic relief discussed and include salt water gargles, Tylenol or ibuprofen for pain relief, throat lozenges, and increased fluid intake. Advised to recheck if not resolved in one week or sooner if worse in any way with primary care provider. Patient has a [facility] online portal account, can view medication list electronically. Ready to learn, no apparent learning barriers were identified; learning preferences include listening. Explained diagnosis and treatment plan; patient/child/caregiver expressed understanding of the content. IFIED WELDER documented in this encounter Plan of Treatment Scheduled Procedures Name Priority Associated Diagnoses Date/Time COLONOSCOPY Diarrhea Scheduled Referrals Name Type Priority Associated Diagnoses Order S janet Primary Care nurse Outpatient Referral Routine Ex pected: visit (clinic) - 07/09/2020, [facility]; Expires: Swabs; Throat 07/09/2023 documented as of this encounter Visit Diagnoses Diagnosis Pharyngitis Acute - Primary documented in this encounter Additional Health Concerns Assessment Noted Time PHQ-9 Depression Total Score: 9 07/08/2020 3:59 PM CERTIFIED WELDER documented as of this encounter Care Teams Manager Corporate Responsibility Relationship Specialty Start Date End Date Alberto Locke M.D. PCP - General Family Medicine 04/27/19 [address] [place] [id number] documented as of this encounter
--- OUTSIDE RECORDS SUMMARY | 2022-06-29 09:25 | XMS_ITS | Encounter Summary ---
:1985 Author Organization [facility] Address [address] [place] [address] Care Team Providers Name Role Phone Alberto Locke M.D. Primary Care Provider Encounter Details Date Type Department Care Team Description 03/06/2020 Orders Only [facility] Employer Based, Encoun ter For MNT Covid Serology Screening For Other Testing Viral Diseases (COVID-19) (Mitzi coon Dx) Social History Tobacco Use Types Packs/Day Years [...] or relatives? How often do you attend judaism or congregation More than 4 time s per year 07/09/2020 services? Do you belong to any clubs or organizations No 04/19/2019 such as judaism groups, unions, fraternal or athletic groups, or [...] Diarrhea documented as of this encounter Results SARS-CoV-2 Total Antibody, Serum (03/12/2020 5:36 PM CDT) [facility] Method Time Signature SARS-CoV-2 Negative Negative [...] was performed using the [employer] [id number] Reagent assay from [employer], which has received Emergency Use Authori zation(EUA) by the U.S. Food and Drug Administration . Fact sheets for this Emergency Use Autho rization (EUA) assay can be found at the following link s: For Healthcare Providers: https://www.fda.gov/media/217289/downloa d For Patients: https://www.fda.gov/media/332385/downloa d Specimen Anatomical Collection Method Collection Time Receive d Time (Source) Location / / Volume Laterality Blood (Blood, 03/12/2020 5:36 PM 03/13/20 20 3:23 Venous) CDT PM CDT Covid Serology Testing Employer Based LAB MICROBIOLOGY - BLOOD ORDERABLES Performing Organization Address City/State/ZIP Code Phon e Number [facility] [address] [place] [phone] [facility] [place] [address] System in [address] documented in this encounter Visit Diagnoses Diagnosis Encounter For Screening For Other Viral Diseases (COVID-19) - Primary documented in this encounter Additional Health Concerns Assessment Noted Time PHQ-9 Depression Total Score: 11 03/05/2020 4:06 PM CD T documented as of this encounter Care Teams Plasterer Maintenance Relationship Specialty Start Date End Date Alberto Locke M.D. PCP - General Family Medicine 04/27/19 [address] [place] [phone] documented as of this encounter
--- OUTSIDE RECORDS SUMMARY | 2022-06-29 09:25 | XMS_ITS | Encounter Summary ---
:1985 Author Organization [facility] Address [address] [place] [address] Care Team Providers Name Role Phone Alberto Locke M.D. Primary Care Provider Encounter Details Date Type Department Care Team Description 04/14/2021 Hospital Encounter Department of Suzanne Almodovar Pain Knee Left Radiology [place] [address] [phone] Social History Tobacco Use Types Packs/Day Years [...] or relatives? How often do you attend hindu or restoration More than 4 time s per year 07/09/2020 services? Do you belong to any clubs or organizations No 04/19/2019 such as hindu groups, unions, fraternal or athletic groups, or [...] yrs) intrauterine route 52 mg IUD continuously. ciprofloxacin (CIPRO) Take 1 tablet (500 mg 14 tablet 0 04/19/2021 500 mg tablet total) by mouth 2 (two) times a day for 7 days. HYDROcodone-acetaminoph Take 1 tablet by 12 tablet 0 202004/17/2021 en (NORCO) 5-325 mg per mouth every 6 (six) tabletIndications: hours as needed for Acute Pain moderate pain or score 4-6 of 10 for up to 3 days Indication: acute pain. atenoloL (TENORMIN) 25 Take 1 tablet (25 mg 30 tablet 2 11/04/2021 mg tablet total) by mouth daily. buPROPion (WELLBUTRIN Take 1 tablet (150 mg 180 tablet 1 04/23/2021 SR) 150 mg 12 hr tablet total) by mouth 2 (two) times a day. naproxen (NAPROSYN) 500 Take 1 tablet (500 mg 60 tablet 0 0 04/14/2021 05/12/2021 mg tablet total) by mouth 2 (two) times a day as needed for pain (pain). omeprazole Take 40 mg by mouth 0 11/04 (for_PriLOSEC) 40 mg every morning before capsule breakfast. Reflux/GERD documented as of this encounter Plan of Treatment Scheduled Procedures Name Priority Associated Diagnoses Date/Time COLONOSCOPY Diarrhea documented as of this encounter Procedures Procedure Name Priority Date/Time Associated Comments Diagnosis DX KNEE LEFT 3 RAD - Routine 04/14/2021 12:41 Pain Knee Left Result s for this VIEWS (most inpatients PM CDT procedure a re in and all the results outpatients) section. 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 PCP - General Family Medicine 04/27/[address] [place] [phone] documented as of this encounter
--- OUTSIDE RECORDS SUMMARY | 2022-06-29 09:25 | XMS_ITS | Encounter Summary ---
:1985 Author Organization [facility] Address [address] [place] [address] Care Team Providers Name Role Phone Alberto Locke M.D. Primary Care Provider Encounter Details Date Type Department Care Team Description 12/06/2019 Hospital Encounter Department of [place], Nuno W, Pain L [facility]wer Leg Right[facility] [address] [phone] Social History Tobacco Use Types Packs/Day Years Used Date Smoking Tobacco: Former Cigarettes 0 Smokeless Tobacco: Never Comments: Smoking 1-2 [...] or relatives? How often do you attend anglican or orthodoxy More than 4 time s per year 07/09/2020 services? Do you belong to any clubs or organizations No 04/19/2019 such as anglican groups, unions, fraternal or athletic groups, or [...] to pay for the very basics like [employer] hat hard 07/09/2020 food, housing, medical care, [...] every 6 (six) tablet hours as needed. omeprazole Take 40 mg by mouth 0 [...] Name Priority Date/Time Associated Comments Diagnosis US LOWER RAD - Routine 12/06/2019 1:54 Pain Lower Leg Results f or this EXTREMITY VEINS (most inpatients PM CDT Right procedure are in RIGHT and all Swelling Leg the results outpatients) Right section. documented in this encounter Results US Lower Extremity Veins Right (12/06/2019 1:54 PM CDT) Anatomical Region Laterality Modality Lower Extremity, Ultrasound RST LOS, Ultrasound ARZ LOS, Rig ht Ultrasound Ultrasound FLA LOS Specimen (Source) Anatomical Collection Method Collection Time Re ceived Time Location / / Volume Laterality 12/06/2019 1:55 PM CDT Impressions 12/06/2019 1:56 PM CDT 1. ??Negative for Acute DVT. Narrative 12/06/2019 1:56 PM CDT EXAM: US LOWER EXTREMITY VEINS RIGHT Exam performed with color and spectral D oppler analysis. COMPARISON: 04/12/19 FINDINGS: RIGHT: ??The common femoral, upper deep femoral, femoral, and popliteal veins are widely patent, without thrombus. The pos terior tibial, peroneal, soleal and gastrocnemius veins were segmentally vis ualized and are normal where seen. The great saphenous vein is patent and negat gulshan for thrombus. Procedure Note Nuno Schmidt M.D. - 12/06/2019 EXAM: US LOWER EXTREMITY VEINS RIGHT Exam performed with color and spectral D oppler analysis. COMPARISON: 04/12/19 FINDINGS: RIGHT: The common femoral, upper deep fe moral, femoral, and popliteal veins are widely patent, without thrombus. The pos terior tibial, peroneal, soleal and gastrocnemius veins were segmentally vis ualized and are normal where seen. The great saphenous vein is patent and negat gulshan for thrombus. IMPRESSION: 1. Negative for Acute DVT. Nuno Beck M.D. IMG US PROCEDURES documented in this encounter Visit Diagnoses Diagnosis Pain Lower Leg Right Swelling Leg Right documented in this encounter Additional Health Concerns Assessment Noted Time PHQ-9 Depression Total Score: 6 12/06/2019 10:58 AM CD T documented as of this encounter Care Teams Rabies Inspector Relationship Specialty Start Date End Date Alberto Locke M.D. PCP - General Family Medicine 04/27/19 [address] [place] [phone] documented as of this encounter
--- OUTSIDE RECORDS SUMMARY | 2022-06-29 09:25 | XMS_ITS | Encounter Summary ---
:1985 Author Organization [facility] Address [address] [place] [address] Care Team Providers Name Role Phone Alberto Locke M.D. Primary Care Provider Reason for Visit Reason Comments Urinary Tract Infection pt reports painful urination , urgency, and pressure Encounter Details Date Type Department Care Team Description 04/12/2021 Emergency [facility] Berny Garcia Infabi garcia Urinary Tract Department Sera (Primary Dx) [address] [facility] [address] [place] [phone] (Wo rk) Social History Tobacco Use Types [...] How often do you attend zoroastrianism or mormonism More than 4 time s per year [...] Sign Reading Time Taken Comments Blood Pressure 159/108 04/12/2021 8:45 PM CDT Pulse 98 04/12/2021 8:35 PM CDT Temperature 37.1 ??C (98.7 ??F) 04/12/2021 8:35 PM CDT Respiratory Rate 16 04/12/2021 8:35 PM CDT Oxygen Saturation 96% 04/12/2021 8:35 PM CDT Inhaled Oxygen Concentration - - Weight 150 kg (330 lb 11 oz) 04/12/2021 8:38 PM CDT Height 157.5 cm (5' 2) 04/12/2021 8:38 PM CDT Body Mass Index 60.48 04/12/2021 8:38 PM CDT documented in this encounter Discharge Instructions Discharge InstructionsBerny Garcia M.D. - 04/12/2021 9:26 PM CDT Be sure to drink plenty of fluids. Return here if any worsening symptoms or fever develops. We are culturing the urine and therefore if there is any resistance he may receive a call in a few days to change antibiotics. Due expect a call from clinic to schedule follow-up in 2 weeks to make sure this is completely resolved documented in this encounter Medications at Time [...] (two) times a day for 7 days. atenoloL (TENORMIN) 25 Take 1 tablet (25 [...] encounter ED Notes Berny Garcia M.D. - 04/12/2021 8:50 PM CDT SUBJECTIVE CHIEF COMPLAINT/REASON FOR VISIT Urinary Tract Infection (pt reports painful urination, urgency, and pressure) HISTORY OF PRESENT ILLNESS Patient is a 35-year-old female history of tobacco abuse, obstructive sleep apnea, migraines, GE reflux, ADHD and depression who presents with dysuria and frequency and concern for UTI that started today. No fever or chills, no nausea or vomiting, and no fever or chills. No concern for STDs REVIEW OF SYSTEMS Constitutional: Negative for chills and fever. HENT: Negative. Gastrointestinal: Negative for abdominal pain, nausea and vomiting. Genitourinary: Positive for dysuria and frequency. Negative for flank pain. Musculoskeletal: Negative for back pain. Skin: Negative. Allergic/Immunologic: Negative for immunocompromised state. Neurological: Negative. Hematological: Negative. Psychiatric/Behavioral: Negative. OBJECTIVE Initial Vitals Temperature Pulse Rate Heart Rate Resp Rate Blood Pressure SpO2 04/12/21203404/12/212034 -- 04/12/21203404/12/21203404/12/212034 37.1 ??C 98 16 (!) 159/108 96 % Pain Score 04/12/212037 0 - No pain PHYSICAL EXAMINATION Constitutional: Nursing note and vitals reviewed. No distress. HENT: Head: Normocephalic and atraumatic. Eyes: Conjunctivae are normal. Pupils are equal, round, and reactive to light. Pulmonary/Chest: Effort normal. Musculoskeletal: General: No tenderness. Normal range of motion. Neurological: Alert and oriented to person, place, and time. Skin: Skin is warm and dry. Psychiatric: She has a normal mood and affect. Behavior is normal. Thought content normal. ASSESSMENT/PLAN IMPRESSION AND PLAN Patient presents for UTI with no signs or symptoms of pyelonephritis. Due to limitations of [facility] and her allergies will give Cipro 500 b.i.d. for 7 days. Follow-up with Family Practice is requested for 2 weeks to make sure this is resolved with the microscopic hematuria is also resolved. ED Course as of Apr 12 2128 Sat Apr 12, 20212109 Nitrite, U(!): Positive 2109 Blood(!): Large 2120 White Blood Cells(!): >100 2120 Urine RBC(!): >100 2120 Bacteria(!): Present Final Diagnoses: as of Apr 12 2128 Infection Urinary Tract Berny Garcia M.D. 04/12/212127 documented in this encounter Plan of Treatment Scheduled Procedures Name Priority Associated Diagnoses Date/Time COLONOSCOPY Diarrhea documented as of this encounter Procedures Procedure Name Priority Date/Time Associated Comments Diagnosis URINALYSIS WITH STAT 04/12/2021 8:49 PM Result s for this MICROSCOPIC IF CDT procedure are in INDICATED, U the results section. HC URINALYSIS AUTO WO STAT 04/12/2021 8:49 PM Results for this MICRO CDT procedure are i n the results section. BACTERIAL CULTURE, STAT 04/12/2021 8:49 PM Res ults for this AEROBIC + SUSC, URINE CDT proced ure are in the results section. documented in this encounter Results (ABNORMAL) Bacterial Culture, Aerobic + Susc, Urine (04/12/2021 8:49 PM CDT) [facility] gist Method Time Signature Urine Culture ESCHERICHIA COLI 04/15/2021 ECLR >100,000 cfu/mL 10:39 AM CDT (A) Specimen Anatomical Collection Method Collection Time Receive d Time (Source) Location / / Volume Laterality Urine (Urine, 04/12/2021 8:49 PM 04/13/20 9:08 Midstream) CDT PM CDT Comment: Specimen Source Site: Urine Organism Antibiotic Method Susceptibility Escherichia coli Ampicillin SUSCEPTIBILITY, >=32 mcg/mL: Re sistant NATALIE (MCG/ML) Escherichia coli Ampicillin + Sulbactam SUSCEPTIBILITY, >=32 mcg /mL: Resistant NATALIE (MCG/ML) Escherichia coli Piperacillin + Tazobactam SUSCEPTIBILITY, <=4 m cg/mL: Susceptible NATALIE (MCG/ML) Escherichia coli Ceftazidime SUSCEPTIBILITY, <=1 mcg/mL: Francine ceptible NATALIE (MCG/ML) Escherichia coli Ceftriaxone SUSCEPTIBILITY, <=1 mcg/mL: Francine ceptible NATALIE (MCG/ML) Escherichia coli Cefepime SUSCEPTIBILITY, <=1 mcg/mL: Francine ceptible NATALIE (MCG/ML) Escherichia coli Aztreonam SUSCEPTIBILITY, <=1 mcg/mL: Francine ceptible NATALIE (MCG/ML) Escherichia coli Ertapenem SUSCEPTIBILITY, <=0.5 mcg/mL: NATALIE (MCG/ML) Susceptible Escherichia coli Meropenem SUSCEPTIBILITY, <=0.25 mcg/mL: NATALIE (MCG/ML) Susceptible Escherichia coli Gentamicin SUSCEPTIBILITY, >=16 mcg/mL: Re sistant NATALIE (MCG/ML) Escherichia coli Tobramycin SUSCEPTIBILITY, 8 mcg/mL: Inter mediate NATALIE (MCG/ML) Escherichia coli Levofloxacin SUSCEPTIBILITY, <=0.12 mcg/mL: NATALIE (MCG/ML) Susceptible Escherichia coli Nitrofurantoin SUSCEPTIBILITY, <=16 mcg/mL: Belle sceptible NATALIE (MCG/ML) Escherichia coli Trimethoprim + SUSCEPTIBILITY, >=320 mcg/mL: R esistant Sulfamethoxazole NATALIE (MCG/ML) Berny Garcia M.D. LAB MICROBIOLOGY - GENERAL O RDERABLES Performing Organization Address City/State/ZIP Code Phon e Number [facility]- [address] [place] [address] 43 [phone] [facility] [place] [address] System in [address] (ABNORMAL) Microscopic Automated (04/12/2021 8:49 PM CDT) athologist Signature White Blood >100 (A) /hpf 04/12/2021 [facility] Cells 9:20 PM CDT Comment: ----REFERENCE VALUE---- Males: 0-3 Females: 0-10 Unknown: 0-10 Red Blood Cells >100 (A) 0 - 2 /hpf 04/12/2021 9:20 PM CDT [facility] Dysmorphic Red Blood Cells <=25 <=25 % 04/12/2021 9: 20 PM CDT [facility] Squamous Cells 4-10 /hpf 04/12/2021 9:[address] [facility] Bacteria Present (A) None Seen 04/12/2021 9:20 PM CDT [facility] Specimen Anatomical Collection Method Collection Time Receive d Time (Source) Location / / Volume Laterality Urine 04/12/2021 8:49 PM 8:58 CDT PM CDT Benry Garcia M.D. LAB URINE ORDERABLES Performing Organization Address City/State/ZIP Code Phon e Number [facility]- [address] [place], [place] [address] [place] [address] System in [place] [address] [place] (ABNORMAL) Urinalysis with Microscopic if Indicated (04/12/2021 8:49 PM CDT) P athologist Signature Source Urine, 04/12/2021 [facility] Urine, Clean 9:03 PM CDT Catch Clarity Cloudy (A) Clear 04/12/2021 [facility] 9:03 PM CDT Color Yellow 04/12/2021 [facility] 9:03 PM CDT Comment: ----REFERENCE VALUE---- Colorless Yellow Philomena Blood Large (A) Negative 04/12/2021 9:03 PM CDT [facility] Nitrite Positive (A) Negative 04/12/2021 9:03 PM CDT [facility] Leukocyte Esterase Large (A) Negative 04/12/2021 9:03 PM CD T [facility] Protein 30 (A) mg/dL 04/12/2021 9:03 PM CDT [facility] Comment: ----REFERENCE VALUE---- Negative Trace Glucose Negative Negative mg/dL 04/12/2021 9:[address] [facility] Ketone Negative Negative mg/dL 04/12/2021 9:[address] [facility] Bilirubin Negative Negative 04/12/2021 9:03 PM CDT [facility] pH 5.5 5.0 - 8.0 04/12/2021 9:03 PM CDT [facility] Specific [place] 1.022 1.001 - 1.035 04/12/2021 9:03 PM CDT [facility] Urobilinogen 0.2 0.2 - 1.0 mg/dL 04/12/2021 9:03 PM CD T [facility] Specimen Anatomical Collection Method Collection Time Receive d Time (Source) Location / / Volume Laterality Urine (Urine, 04/12/2021 8:49 PM 04/12/20 8:58 Clean Catch) CDT PM CDT Berny Garcia M.D. LAB URINE ORDERABLES Performing Organization Address City/State/ZIP Code Phon e Number [facility]- [address] [place], [place] [address] [place] [address] System in [place] [address] documented in this encounter Visit Diagnoses Diagnosis Infection Urinary Tract - Primary documented in this encounter Additional Health Concerns Assessment Noted Time PHQ-9 Depression Total Score: 9 07/08/2020 3:59 PM BOOM STICK MAN documented as of this encounter Care Teams Equipment Superintendent Relationship Specialty Start Date End Date Alberto Locke M.D. PCP - General Family Medicine 04/27/19 [address] [place] [address] documented as of this encounter
--- OUTSIDE RECORDS SUMMARY | 2022-06-29 09:25 | XMS_ITS | Encounter Summary ---
:1985 Author Organization [facility] Address [address] [place] [address] Care Team Providers Name Role Phone Alberto Locke M.D. Primary Care Provider Encounter Details Date Type Department Care Team Description 07/08/2020 Clinical Communication Department of [facility] Alberto Fregoso M.D. [address], [facility] [phone] 5 [facility] [phone] [place], [place] (Work) [phone] Social History Tobacco Use [...] or relatives? How often do you attend mormonism or samaritan More than 4 time s per year 07/09/2020 services? Do you belong to any clubs or organizations No 04/19/2019 such as mormonism groups, unions, fraternal or athletic groups, or [...] this encounter Miscellaneous Notes Telephone Encounter - Cristine Ramesh - 07/08/2020 11:30 AM CST Patient will wait on covid results and call back at later day to schedule appt if sore throat symptoms do not improve. Thank you for the information HESPIN DRIER OPERATOR Telephone Encounter - Venu Collins P.A.-C. - 07/08/2020 11:29 AM CLOTHESPIN DRIER OPERATOR Currently only COVID swabs can be performed at the testing site. This may change in the future. HESPIN DRIER OPERATOR Telephone Encounter - Karey Carballo L.P.N. - 07/08/2020 11:20 AM CLOTHESPIN DRIER OPERATOR I believe just covid test are done at the [facility] site? Will ask Venu HESPIN DRIER OPERATOR Telephone Encounter - Cristine Ramesh - 07/08/2020 11:09 AM CST Reason for Communication: Requesting strep test Current Phone Number: N/A Can Nursing/Provider leave a detailed message?: N/A Did the patient refuse triage through Nurse line? (for symptom based concerns): No Action Needed: Patient coming in today for covid test. She is wondering since she will already be here if she can also get strep test completed. Please advise and order if able-to be added to covid swab appt. No need to call her back, she will find out at covid appt and if need will call to schedule that test at a later time. Thanks Name of Medication (if relevant): N/A HESPIN DRIER OPERATOR documented in this encounter Plan of Treatment Scheduled Procedures Name Priority Associated Diagnoses Date/Time COLONOSCOPY Diarrhea documented as of this encounter Visit Diagnoses Not on filedocumented in this encounter Additional Health Concerns Infection Onset Date Last Indicated Resolved Time COVID19 Pending 07/08/2020 07/08/2020 07/09/2020 5:11 AM CLOTHESPIN DRIER OPERATOR Assessment Noted Time PHQ-9 Depression Total Score: 9 07/08/2020 3:59 PM CLOTHESPIN DRIER OPERATOR documented as of this encounter Care Teams Decision Unit Rn Relationship Specialty Start Date End Date Alberto Locke M.D. PCP - General Family Medicine 04/27/19 [address] [place] [address] documented as of this encounter
--- OUTSIDE RECORDS SUMMARY | 2022-06-29 09:25 | XMS_ITS | Encounter Summary ---
:1985 Author Organization [facility] Address [address] [place] [address] Care Team Providers Name Role Phone Alberto Locke M.D. Primary Care Provider Reason for Visit Reason Comments Follow-up Outpatient (Routine) - Closed Specialty Diagnoses / Procedures Referred By Contact Refer red To Contact Family Medicine Alberto Locke M.D. [facility] [address] [place] [phone] Referral ID Status Reason Start Date Expiration Date Visits Requ ested Visits Authorized [id number] Closed 12/06/2019 12/05/2020 1 1 Encounter Details Date Type Department Care Team Description 03/05/2020 Office Visit Department of Family Alberto Locke M.D. Depression Major Recurrent (HCC) (Primar y Dx); [facility], [address] [facility], in [facility] [phone] [place] [address] [place], [place] (Work) [phone] Social History Tobacco Use [...] or relatives? How often do you attend cheondoism or pentecostalism More than 4 time s per year 07/09/2020 services? Do you belong to any clubs or organizations No 04/19/2019 such as cheondoism groups, unions, fraternal or athletic groups, or [...] months, you worried that your food Jason marie true 07/09/2020 would run out before you [...] Sign Reading Time Taken Comments Blood Pressure 140/82 03/05/2020 3:36 PM CDT Pulse 80 03/05/2020 3:36 PM CDT Temperature 36.5 ??C (97.7 ??F) 03/05/2020 3:36 PM CDT Respiratory Rate - - Oxygen Saturation - - Inhaled Oxygen Concentration - - Weight 150 kg (330 lb 0.5 oz) 03/05/2020 3:36 PM CDT Height 157 cm (5' 1.81) 03/05/2020 3:36 PM CDT Body Mass Index 60.73 03/05/2020 3:36 PM CDT documented in this encounter Patient Instructions Patient InstructionsAlberto Locke M.D. - 03/05/2020 3:30 PM CDT Follow Up and Care Plan Please schedule follow up in 1 month(s) without Lab documented in this encounter Progress Notes Alberto Locke M.D. - 03/05/2020 3:30 PM CDT HPI Patient is here today for follow up of depression. she reports the following symptoms or concerns she is still having symptoms of moderate depression.. Patient is not taking their medications accordingto instructions. She stopped her Effexor when the Rx ran out and didn't refill because she didn't think it was that effective. She was on Wellbutrin in the past and that seemed to work for a while. Important negatives are she denies suicidal ideations. They are due for PAP. Patient Active Problem List Diagnosis ??? Body Mass Index 50.0 To 59.9 Adult ([facility]) ??? Abuse Tobacco Smoking ??? Migraine Headache ??? Apnea Sleep Obstructive ??? Gastroesophageal Reflux Disease NOS ??? Attention Deficit With Hyperactivity Disorder ??? Depression Major Recurrent ([facility]) Current Outpatient Medications Medication Sig ??? acetaminophen (for_TYLENOL) 500 mg tablet Take 1-2 tablets by mouth every 6 (six) hours as needed. ??? omeprazole (for_PriLOSEC) 40 mg capsule Take 40 mg by mouth every morning before breakfast. Reflux/GERD ??? atenoloL (TENORMIN) 25 mg tablet Take 1 tablet (25 mg total) by mouth daily. ??? buPROPion (WELLBUTRIN SR) 150 mg 12 hr tablet Take 1 tablet (150 mg total) by mouth 2 (two) times a day. ??? polymyxin B-trimethoprim (POLYTRIM) 10,000 unit- 1 mg/mL ophthalmic solution Administer 1 drop into the right eye 4 (four) times a day. (Patient not taking: Reported on 12/06/2019 ) ??? venlafaxine XR (EFFEXOR-XR) 75 mg 24 hr capsule Take 1 capsule (75 mg total) by mouth daily. Take with food. Allergies Allergen Reactions ??? Effexor [Venlafaxine] Other (see comments) Light headed and dizzy ??? Penicillins Other (see comments) Does not recall reaction- reports reaction during childhood. Past Medical History: Diagnosis Date ??? Hemorrhage Gastrointestinal 11/13/2017 ??? Hypovolemic Shock (HCC) 11/11/2017 ??? Sleep Apnea does not use CPAP machine Family History Problem Relation Age of Onset ??? Cancer Grandmother ear ??? Cystic fibrosis Sister ??? Cancer Grandfather larynx ??? Lung cancer Grandmother brain cancer ??? Heart attack Father 47 ??? Hypothyroidism Mother ??? Lung cancer Paternal Grandmother ??? Melanoma Maternal Grandmother ??? Other cancer Maternal Grandfather Throat cancer ??? ADD Son ??? Anesthesia problems Neg Hx Social History Socioeconomic History ??? Marital status: Spouse name: Not on file ??? Number of children: Not on file ??? Years of education: Not on file ??? Highest education level: 12th grade Occupational History ??? Not on file Social Needs ??? Financial resource strain: Not hard at all ??? Food insecurity Worry: Never true Inability: Never true ??? Transportation needs Medical: No Non-medical: No Tobacco Use ??? Smoking status: Current Some Day Smoker Packs/day: 0.00 Years: 0.00 Pack years: 0.00 ??? Smokeless tobacco: Never Used ??? Tobacco comment: Smoking 1-2 cigarettes monthly Substance and Sexual Activity ??? Alcohol use: Not Currently Frequency: Never Binge frequency: Never Comment: occasional 1-2 a year ??? Drug use: No ??? Sexual activity: Not Currently Partners: Male control/protection: None Lifestyle ??? Physical activity Days per week: 2 days Minutes per session: 10 min ??? Stress: Only a little Relationships ??? Social connections Talks on phone: More than three times a week Gets together: Once a week Attends pentecostalism service: 1 to 4 times per year Active member of club or organization: No Attends meetings of clubs or organizations: Never Relationship status: ??? Intimate partner violence Fear of current or ex partner: No Emotionally abused: No Physically abused: No Forced sexual activity: Patient refused Other Topics Concern ??? Not on file Social History Narrative ??? Not on file Past Surgical History: Procedure Laterality Date ??? SECTION N/A 04/12/2019 Procedure: SECTION; Surgeon: Xin De Leon M.D.; Location: [facility] OR ??? SECTION 04/12/2019 ??? ENDOSCOPIC RETROGRADE CHOLANGIOPANCREATOGRAPHY (ERCP) N/A 11/08/2017 Procedure: ENDOSCOPIC RETROGRADE CHOLANGIOPANCREATOGRAPHY; Surgeon: Rubio Baker M.D.; Location: [facility] OR ??? ESOPHAGOGASTRODUODENOSCOPY N/A 11/11/2017 Procedure: ESOPHAGOGASTRODUODENOSCOPY; Surgeon: Rubio Baker M.D.; Location: [facility] GI LAB ??? LAPAROSCOPIC APPENDECTOMY N/A 09/08/2017 Procedure: LAPAROSCOPIC APPENDECTOMY; Surgeon: Edd Moeller D.O.; Location: [facility] OR ??? LAPAROSCOPIC CHOLECYSTECTOMY WITH CHOLANGIOGRAM N/A 03/03/2018 Procedure: LAPAROSCOPIC CHOLECYSTECTOMY POSSIBLE CHOLANGIOGRAM; Surgeon: Edd Moeller D.O.; Location: [facility] OR ??? OTHER CONVERTED SHX (SEE COMMENT) N/A 06/24/2017 >1. Normal spontaneous vaginal delivery. 2. Second-degree midline laceration and repair. ROS GENERAL: No fevers, no fatigue. HEENT: No sinus congestion, no ear pain. PULMONARY: No cough, no wheeze. CARDIOVASCULAR: Denies chest pain, dyspnea or edema. GI: No diarrhea, no blood in stools. : No pain with urination, rest as above M/S: no myalgia or arthralgia. SKIN: No rash, no concerning macule change. PSYCH: No mood change. Sleep is okay. OBJECTIVE Vitals: 03/05/20 1536 BP: 140/82 Pulse: 80 Temp: 36.5 ??C Estimated body mass index is 60.73 kg/m?? as calculated from the following: Height as of this encounter: 157 cm. Weight as of this encounter: 150 kg. GEN: alert, no distress NEURO: motor and sensory intact with no focal deficits. PSYCH: casually groomed, mood a little down and affect normal no thought disturbance, no suicidal ideations ASSESSMENT/PLAN: #1 Depression Major Recurrent (HCC) She will be tried on Wellbutrin again She agrees to this #2 Hypertension Essential Primary Her BP is persistently high today and has been high in the past She will begin treatment with atenolol since it may help with anxiety a bit and may prophylax against her Migraines as well. Follow up in 1 month(s) documented in this encounter Plan of Treatment Scheduled Procedures Name Priority Associated Diagnoses Date/Time COLONOSCOPY Diarrhea documented as of this encounter Visit Diagnoses Diagnosis Depression Major Recurrent (HCC) - Prima ry Hypertension Essential Primary documented in this encounter Additional Health Concerns Assessment Noted Time PHQ-9 Depression Total Score: 11 03/05/2020 4:06 PM CD T documented as of this encounter Care Teams Stacker Attendant Relationship Specialty Start Date End Date Alberto Locke M.D. PCP - General Family Medicine 04/27/19 [address] [place] [address] documented as of this encounter
--- OUTSIDE RECORDS SUMMARY | 2022-06-29 09:26 | XMS_ITS | Encounter Summary ---
:1985 Author Organization [facility] Address [address] [place] [address] Care Team Providers Name Role Phone Alberto Locke M.D. Primary Care Provider Reason for Referral Outpatient (Routine) - Closed Specialty Diagnoses / Procedures Referred By Contact Refer red To Contact Family Medicine Alberto Locke M.D. [address] [phone] Referral ID Status Reason Start Date Expiration Date Visits Requ ested Visits Authorized [id number] Closed 04/27/2019 04/26/2020 1 1 Scheduling Instructions Depression, anemia Reason for Visit Reason Comments Establish Care Anemia post Encounter Details Date Type Department Care Team Description 04/27/2019 Comprehensive Visit Department of Alberto Locke Anemia (HCC) (Primary Dx); Family [facility]era Other Hypotension; [facility], in [address] [place] [address] lvd Abuse Tobacco Smoking; [place], [place] Body Mass Index 50.0 To 59.9 Adult ([facility]); [address] [place] [phone] Depression Major Recurrent ([facility]) [place], [place] [phone] (Work) [phone] Social History Tobacco Use Types Packs/Day Years Used Date Smoking Tobacco: Some Days Smokeless Tobacco: Never Comments: Smoking 1-2 cigarettes [...] or relatives? How often do you attend quaker or sabianist More than 4 time s per year 07/09/2020 services? Do you belong to any clubs or organizations No 04/19/2019 such as quaker groups, unions, fraternal or athletic groups, or [...] Sign Reading Time Taken Comments Blood Pressure 106/70 04/27/2019 2:58 PM CDT Pulse 92 04/27/2019 2:58 PM CDT Temperature 35.5 ??C (95.9 ??F) 04/27/2019 2:58 PM CDT Respiratory Rate 18 04/27/2019 2:58 PM CDT Oxygen Saturation - - Inhaled Oxygen Concentration - - Weight 137 kg (300 lb 14.9 oz) 04/27/2019 2:58 PM CDT Height - - Body Mass Index 55.03 03/03/2018 6:59 AM CDT documented in this encounter Patient Instructions Patient InstructionsAlberto Locke M.D. - 04/27/2019 3:00 PM CDT Follow Up and Care Plan Please schedule follow up in 1 month(s) with non fasting Lab documented in this encounter Progress Notes Alberto Locke M.D. - 04/27/2019 3:00 PM CDT HPI Patient is here today for follow up of recent C section and events surrounding that. She hade an unexpected and delivery on 04/12/19. It required an emergent C section delivery due to low heart tomes. The baby did very well after deliver but Mom had episode of dyspnea and hypotension. She was evaluated for PE and CT was normal. She had PP anemia down to hgb 7.9 abd due to her symptoms was transfused. she reports the following symptoms or concerns she is feeling physically well now andher PP bleeding is essentially stopped. She does have some depression and anxiety which was present before this and she would be willing to start medication for that. She is concerned about her obesity and asks about weight loss meds. She smokes and I recommend she quit. She is not breast feeding She will discus permanent sterilization at upcoming PROFESSOR OF GEOGRAPHY follow up. Patient Active Problem List Diagnosis ??? Body Mass Index 50.0 To 59.9 Adult ([facility]) ??? Abuse Tobacco Smoking ??? Migraine Headache ??? Apnea Sleep Obstructive ??? Gastroesophageal Reflux Disease NOS ??? Attention Deficit With Hyperactivity Disorder ??? Depression Major Recurrent ([facility]) ??? Section Delivery ([facility]) Current Outpatient Medications Medication Sig ??? acetaminophen (for_TYLENOL) 500 mg tablet Take 1-2 tablets by mouth every 6 (six) hours as needed. ??? omeprazole (for_PriLOSEC) 40 mg capsule Take 40 mg by mouth every morning before breakfast. Reflux/GERD ??? buPROPion (WELLBUTRIN SR) 150 mg 12 hr tablet Take 1 tablet (150 mg total) by mouth 2 (two) times a day. Start one one a day for the first week Allergies Allergen Reactions ??? Penicillins Other (see comments) Does not [...] attack Father 47 ??? Hypothyroidism Mother ??? Anesthesia problems Neg Hx Social History Socioeconomic History ??? Marital status: Spouse name: Not on file ??? Number of children: Not on file ??? Years of education: Not on file ??? Highest education level: 12th grade Occupational History ??? Not on file Social Needs ??? Financial resource strain: Not hard at all ??? Food insecurity: Worry: Never true Inability: Never true ??? Transportation needs: Medical: No Non-medical: No Tobacco Use ??? Smoking status: Current Some Day Smoker ??? Smokeless tobacco: Never Used ??? Tobacco comment: Smoking 1-2 cigarettes monthly Substance and Sexual Activity ??? Alcohol use: Yes Frequency: Never Binge frequency: Never Comment: occasional 1-2 a year ??? Drug use: No ??? Sexual activity: Yes Partners: Male control/protection: None Lifestyle ??? Physical activity: Days per week: 2 days Minutes per session: 10 min ??? Stress: Only a little Relationships ??? Social connections: Talks on phone: More than three times a week Gets together: Once a week Attends sabianist service: 1 to 4 times per year Active member of club or organization: No Attends meetings of clubs or organizations: Never Relationship status: ??? Intimate partner violence: Fear of current or ex partner: No Emotionally abused: No Physically abused: No Forced sexual activity: Patient refused Other Topics Concern ??? Not on file Social History Narrative ??? Not on file Past Surgical History: Procedure Laterality Date ??? SECTION N/A 04/12/2019 Procedure: SECTION; Surgeon: Xin De Leon M.D.; Location: [facility] OR ??? ENDOSCOPIC RETROGRADE CHOLANGIOPANCREATOGRAPHY (ERCP) N/A 11/08/2017 Procedure: ENDOSCOPIC RETROGRADE CHOLANGIOPANCREATOGRAPHY; Surgeon: Rubio Baker M.D.; Location: [facility] OR ??? ESOPHAGOGASTRODUODENOSCOPY N/A 11/11/2017 Procedure: ESOPHAGOGASTRODUODENOSCOPY; Surgeon: Rubio Baker M.D.; Location: [facility] GI LAB ??? LAPAROSCOPIC APPENDECTOMY N/A 09/08/2017 Procedure: LAPAROSCOPIC APPENDECTOMY; Surgeon: Edd Moeller D.O.; Location: [facility] OR ??? LAPAROSCOPIC CHOLECYSTECTOMY WITH CHOLANGIOGRAM N/A 03/03/2018 Procedure: LAPAROSCOPIC CHOLECYSTECTOMY POSSIBLE CHOLANGIOGRAM; Surgeon: Edd Moeller D.O.; Location: [facility] OR ??? OTHER CONVERTED SHX (SEE [...] mood change. Sleep is okay. OBJECTIVE Vitals: 04/27/19 1458 BP: 106/70 Pulse: 92 Resp: 18 Temp: (!) 35.5 ??C Estimated body mass index is 55.03 kg/m?? as calculated from the following: Height as of 03/03/18: 157.5 cm. Weight as of this encounter: 137 kg. GENERAL: Patient is comfortable, polite and in no distress. HEART: Normal rate and rhythm. LUNGS: Clear to the bases. No wheeze noted. ABD: non tender LEGS: No cyanosis, clubbing or edema. NEURO: Grossly intact with no evidence of impairment. . PSYCH: casually groomed, mood depressed and affect normal, no thought disturbance, no suicidal ideations ASSESSMENT/PLAN: #1 Anemia (HCC) CBC in one month #2 Other Hypotension This may have been due to blood loss and BP is now normal #3 Abuse Tobacco Smoking I counseled her about quitting smoking for over 3 minutes and she is ready to commit to that today. #4 Body Mass Index 50.0 To 59.9 Adult (HCC) Because of patient's elevated BMI recommendations were made for moderate exercise of 30 minutes fivetimes per week in the form of walking or similar activity. Diet modification recommendations included reducing portion size and increasing the amount of fruits and vegetables. She will discuss weight loss meds with PROFESSIONAL SERVICES SPECIALIST #5 Depression Major Recurrent (HCC) I will start her on Wellbutrin as prescribed for depression. She will try quitting smoking as well. We discussed medication directions for use and side effects and all of her questions are all answered. Greater then 25 minutes were spent face to face in this visit with more then 50% talking Follow up in 1 month(s) documented in this encounter Plan of Treatment Scheduled Procedures Name Priority Associated Diagnoses Date/Time COLONOSCOPY Diarrhea Scheduled Referrals Name Type Priority Associated Diagnoses Order S [facility] Outpatient Referral Routine Expec pipe: office visit 05/27/2019 (clinic) (Approximate), Expires: 04/27/2022 documented as of this encounter Results CBC with Differential, Blood (05/31/2019 10:28 AM CDT) P athologist Signature Hemoglobin 13.0 11.6 - 05/31/2019 [facility] 15.0 g/dL 10:38 AM CDT Hematocrit 42.0 35.5 - 05/31/2019 [facility] 44.9 % 10:38 AM CDT Erythrocytes 4.78 3.92 - 05/31/2019 [facility] 5.13 10:38 AM CDT x10(12)/L MCV 87.9 78.2 - 05/31/2019 [facility] 97.9 fL 10:38 AM CDT RBC Distrib Width 13.9 12.2 - 05/31/2019 [facility] 16.1 % 10:38 AM CDT Platelet Count 250 157 - 371 05/31/2019 [facility] x10(9)/L 10:38 AM CDT Leukocytes 6.1 3.4 - 9.6 05/31/2019 [facility] x10(9)/L 10:38 AM CDT Neutrophils 4.08 1.56 - 05/31/2019 [facility] 6.45 10:38 AM CDT x10(9)/L Lymphocytes 1.54 0.95 - 05/31/2019 [facility] 3.07 10:38 AM CDT x10(9)/L Monocytes 0.37 0.26 - 05/31/2019 [facility] 0.81 10:38 AM CDT x10(9)/L Eosinophils 0.10 0.03 - 05/31/2019 [facility] 0.48 10:38 AM CDT x10(9)/L Basophils 0.02 0.01 - 05/31/2019 [facility] 0.08 10:38 AM CDT x10(9)/L Specimen Anatomical Collection Method Collection Time Receive d Time (Source) Location / / Volume Laterality Blood (Blood, 05/31/2019 10:28 05/31/2019 Venous) AM CDT 10:33 AM CDT Alberto Locke M.D. LAB BLOOD ADD-ON Performing Organization Address City/State/ZIP Code Phon e Number [facility]- [address] [place], [place] [address] [facility] [place] [address] System in [place] [address] documented in this encounter Visit Diagnoses Diagnosis Anemia (HCC) - Prim shonna Other Hypotension Abuse Tobacco Smoking Body Mass Index 50.0 To 59.9 Adult (HCC) Depression Major Recurrent (HCC) documented in this encounter Additional Health Concerns Assessment Noted Time PHQ-9 Depression Total Score: 7 04/07/2017 9:39 AM CDT documented as of this encounter Care Teams Spanish Moss Picker Relationship Specialty Start Date End Date Alberto Locke M.D. PCP - General Family Medicine 04/27/19 [address] [place] [phone] documented as of this encounter
--- OUTSIDE RECORDS SUMMARY | 2022-06-29 09:26 | XMS_ITS | Encounter Summary ---
:1985 Author Organization [facility] Address [address] [place] [address] Care Team Providers Name Role Phone Alberto Locke M.D. Primary Care Provider Reason for Referral Outpatient (Routine) - Closed Specialty Diagnoses / Procedures Referred By Contact Refer red To Contact Family [facility] [address] [phone] Referral ID Status Reason Start Date Expiration Date Visits Requ ested Visits Authorized [id number] Closed 05/31/2019 05/30/2020 1 1 Scheduling Instructions Dep Reason for Visit Reason Comments Care Recheck anemia Outpatient (Routine) - Closed Specialty Diagnoses / Procedures Referred By Contact Refer red To Contact Family Alberto Hercules M.D. [address] [phone] Referral ID Status Reason Start Date Expiration Date Visits Requ ested Visits Authorized [id number] Closed 04/27/2019 04/26/2020 1 1 Encounter Details Date Type Department Care Team Description 05/31/2019 Office Visit Department of Alberto Campbell M.D. Anemia (HCC) (Prima ry Dx); [address] Depression Major Recurrent (HCC) Clinic, in [facility] [phone] [address] [facility] [phone] [place], [place] (Work) [phone] Social History Tobacco Use [...] or relatives? How often do you attend shinto or scientologist More than 4 time s per year 07/09/2020 services? Do you belong to any clubs or organizations No 04/19/2019 such as shinto groups, unions, fraternal or athletic groups, or [...] Sign Reading Time Taken Comments Blood Pressure 106/60 05/31/2019 11:38 AM CDT Pulse 60 05/31/2019 11:38 AM CDT Temperature 36.5 ??C (97.7 ??F) 05/31/2019 11:38 AM CDT Respiratory Rate 18 05/31/2019 11:38 AM CDT Oxygen Saturation - - Inhaled Oxygen Concentration - - Weight 135 kg (297 lb 6.4 oz) 05/31/2019 11:38 AM CDT Height - - Body Mass Index 54.38 03/03/2018 6:59 AM CDT documented in this encounter Patient Instructions Patient InstructionsAlberto Locke M.D. - 05/31/2019 11:30 AM CDT Follow Up and Care Plan Please schedule follow up in 6 month(s) without Lab documented in this encounter Progress Notes Alberto Locke M.D. - 05/31/2019 11:30 AM CDT HPI Patient is here today for follow up of and depression. she reports the following symptomsor concerns none She is feeling better and her depression has improved on Wellbutrin. Patient is taking their medications according to instructions. Important negatives are she denies any bleeding or suicidal ideations. They are due. Patient Active Problem List Diagnosis ??? Body Mass Index 50.0 To 59.9 Adult ([facility]) ??? Abuse Tobacco Smoking ??? Migraine Headache ??? Apnea Sleep Obstructive ??? Gastroesophageal Reflux Disease NOS ??? Attention Deficit With Hyperactivity Disorder ??? Depression Major Recurrent ([facility]) ??? Section Delivery ([facility]) ??? Anemia ([facility]) Current Outpatient Medications Medication Sig ??? buPROPion (WELLBUTRIN SR) 150 mg 12 hr tablet Take 1 tablet (150 mg total) by mouth 2 (two) times a day. Start one one a day for the first week ??? ketoconazole (NIZORAL) 2 % cream Apply 1 application topically daily for 14 days. ??? omeprazole (for_PriLOSEC) 40 mg capsule Take 40 mg by mouth every morning before breakfast. Reflux/GERD ??? acetaminophen (for_TYLENOL) 500 mg tablet Take 1-2 tablets by mouth every 6 (six) hours as needed. Allergies Allergen Reactions ??? Penicillins Other (see [...] Non-medical: No Tobacco Use ??? Smoking status: Former Smoker Packs/day: 0.00 ??? Smokeless tobacco: Never Used ??? [...] week Gets together: Once a week Attends scientologist service: 1 to 4 times per year [...] SECTION; Surgeon: Xin De Leon M.D.; Location: [facility] OR ??? ENDOSCOPIC RETROGRADE CHOLANGIOPANCREATOGRAPHY (ERCP) N/A 11/08/2017 Procedure: ENDOSCOPIC RETROGRADE CHOLANGIOPANCREATOGRAPHY; Surgeon: Rubio Baker M.D.; Location: [facility] OR ??? ESOPHAGOGASTRODUODENOSCOPY N/A 11/11/2017 Procedure: ESOPHAGOGASTRODUODENOSCOPY; Surgeon: Rubio Baker M.D.; Location: [facility] GI LAB ??? LAPAROSCOPIC APPENDECTOMY N/A 09/08/2017 Procedure: LAPAROSCOPIC APPENDECTOMY; Surgeon: Edd Moeller D.O.; Location: [facility] OR ??? LAPAROSCOPIC CHOLECYSTECTOMY WITH CHOLANGIOGRAM N/A 03/03/2018 Procedure: LAPAROSCOPIC CHOLECYSTECTOMY POSSIBLE CHOLANGIOGRAM; Surgeon: Edd Moeller D.O.; Location: [facility] OR ??? OTHER CONVERTED SHX (SEE [...] mood change. Sleep is okay. OBJECTIVE Vitals: 05/31/19 1138 BP: 106/60 Pulse: 60 Resp: 18 Temp: 36.5 ??C Estimated body mass index is 54.38 kg/m?? as calculated from the following: Height as of 03/03/18: 157.5 cm. Weight as of this encounter: 135 kg. GEN: alert, no distress NEURO: motor and sensory intact with no focal deficits. PSYCH: casually groomed, mood and affect bright, no thought disturbance, no suicidal ideations Results for orders placed or performed during the hospital encounter of 05/31/19 CBC with Differential, Blood Result Value Ref Range Hemoglobin 13.0 11.6 - 15.0 g/dL Hematocrit 42.0 35.5 - 44.9 % Erythrocytes 4.78 3.92 - 5.13 x10(12)/L MCV 87.9 78.2 - 97.9 fL RBC Distrib Width 13.9 12.2 - 16.1 % Platelet Count 250 157 - 371 x10(9)/L Leukocytes 6.1 3.4 - 9.6 x10(9)/L Neutrophils 4.08 1.56 - 6.45 x10(9)/L Lymphocytes 1.54 0.95 - 3.07 x10(9)/L Monocytes 0.37 0.26 - 0.81 x10(9)/L Eosinophils 0.10 0.03 - 0.48 x10(9)/L Basophils 0.02 0.01 - 0.08 x10(9)/L ASSESSMENT/PLAN: #1 Anemia (HCC) Resolved No further tests needed #2 Depression Major Recurrent (HCC) The patient is doing well on the current medication and is meeting clinical goal. Continue current dose. Follow up in 6 month(s) Consults and Follow-ups to Schedule Family Medicine office visit (clinic) Nov 30, 2019 (Approximate) Region: [facility] Provider needed?: Self Visit length: Long Visit type: General Dep documented in this encounter Plan of Treatment Scheduled Procedures Name Priority Associated Diagnoses Date/Time COLONOSCOPY Diarrhea Scheduled Referrals Name Type Priority Associated Diagnoses Order S [facility] Family Medicine Outpatient Referral Routine Expec pipe: office visit 11/30/2019 (clinic) (Approximate), Expires: 05/31/2022 documented as of this encounter Visit Diagnoses Diagnosis Anemia (HCC) - Prim shonna Depression Major Recurrent (HCC) documented in this encounter Additional Health Concerns Assessment Noted Time PHQ-9 Depression Total Score: 3 05/30/2019 10:59 AM CD T documented as of this encounter Care Teams Felling Bucking Supervisor Relationship Specialty Start Date End Date Alberto Locke M.D. PCP - General Family Medicine 04/27/19 [address] [phone] documented as of this encounter
--- OUTSIDE RECORDS SUMMARY | 2022-06-29 09:26 | XMS_ITS | Encounter Summary ---
:1985 Author Organization [facility] Address [address] [place] [address] Care Team Providers Name Role Phone Blaire Bundy P.A.-C. Primary Care Provider Encounter Details Date Type Department Care Team Description 04/19/2019 Encounter Social History Tobacco Use Types Packs/Day Years [...] or relatives? How often do you attend zoroastrian or mormonism More than 4 time s per year 07/09/2020 services? Do you belong to any clubs or organizations No 04/19/2019 such as zoroastrian groups, unions, fraternal or athletic groups, or [...] documented as of this encounter Miscellaneous Notes Note - Hoda Coker R.N., Leonardo. - 04/19/2019 3:45 PM CDT This note was copied from a baby's chart. CASSIUS Juarez, at 7 days old of age, was seen for a Consultation on 04/17/19 at [facility] class for weight and feeding check. OBJECTIVE Delivery Details: Risk Factors: Obesity No Care Asthma Obstetric Procedures-This : None Labor Complications: Persistent Category 2;Precipitous Labor <3 Hours Delivery Type: , Low Transverse Weight: 3930 g 1 Minute 5 Minute 10 Minute Totals: 8 9 Maternal Breast Assessment Mom has not experienced any breast changes yet to start pumping, as she desires to add some breastmilk to the baby's bottles if able. She is on Bactrim for her incision and the 10 hour half-life of this L3 category for drug per Dr. Carey Alcantar, necessitates 2 1/2 days to wait for total clearance from her system to use the milk.This is mothers preference that baby get no Bactrim. Instructed her to start pumping and dumping for several times per day is she wants to encourage somebreastmilk production to have by then. . . Assessment No jaundice color noted on body, mouth is clear, cord is starting to dry at base, not yet. No spitting, taking 3 oz of Similac every 2-3 hours, plans to go to [employer] by Similac as usedby her previous child for tolerance issues. Using distilled water and will participate in WIC program. Infant Input: 8-9 feedings/24 hours Output: hourly voids/24 hours, per mom's report 2 stools/24 hours, weight: 3930 g Current weight: Weight: 3954 g Percent of weight change since : 1% Weight change since previous weight: Weight Change (gm) : 0 Pct Wt Change: 0.61 % ASSESSMENT/PLAN Continue with Similac formula using distilled water, baby at 3 oz volumes already with no spitting. Recounted story of baby's arrival and role of 11 year old. Living with her mother until she can lift her 3 year old, then will return home. Has hand pump to use to gather breastmilk for adding to bottles if able. Follow Up: follow up plan: consult at [facility] class as desired. Hoda Coker R.N., AbhinavLBrittaneyC. documented in this encounter Plan of Treatment Scheduled Procedures Name Priority Associated Diagnoses Date/Time COLONOSCOPY Diarrhea documented as of this encounter Visit Diagnoses Not on filedocumented in this encounter Additional Health Concerns Assessment Noted Time PHQ-9 Depression Total Score: 7 04/07/2017 9:39 AM CDT documented as of this encounter Care Teams Secondary School Teacher Librarian Relationship Specialty Start Date End Date Blaire Bundy P.A.-C. PCP - General 02/04/17 04/26/19 documented as of this encounter
--- OUTSIDE RECORDS SUMMARY | 2022-06-29 09:26 | XMS_ITS | Encounter Summary ---
:1985 Author Organization [facility] Address [address] [place] [address] Care Team Providers Name Role Phone Alberto Locke M.D. Primary Care Provider Encounter Details Date Type Department Care Team Description 10/17/2019 Orders Only Department of Pediatrics in [facility] cynthia [place], [place] P.A.-C. [address] [facility] [address] [place] [phone] [place] [phone] (Wo rk) Social History Tobacco Use Types [...] or relatives? How often do you attend congregational or caodaism More than 4 time s per year 07/09/2020 services? Do you belong to any clubs or organizations No 04/19/2019 such as congregational groups, unions, fraternal or athletic groups, or [...] documented as of this encounter Care Teams Home Health Care Worker Relationship Specialty Start Date End Date Alberto Locke M.D. PCP - General Family Medicine 04/27/19 [address] [place] [phone] documented as of this encounter
--- OUTSIDE RECORDS SUMMARY | 2022-06-29 09:26 | XMS_ITS | Encounter Summary ---
:1985 Author Organization [facility] Address [address] [place] [address] Care Team Providers Name Role Phone Alberto Locke M.D. Primary Care Provider Encounter Details Date Type Department Care Team Description 06/16/2019 Clinical Communication Department of Alberto Roberts M.D. [address], [facility] [phone] [place] [address] [place], [place] (Work) [phone] Social History Tobacco Use [...] How often do you attend jewish or alevism More than 4 time s per year [...] this encounter Miscellaneous Notes Telephone Encounter - Jayshree Morocho R.N. - 06/16/2019 4:04 PM CDT Please see chart. Duplicate message Telephone Encounter - Judy Gonzalez - 06/16/2019 3:29 PM CDT Patient was returning a call from Jayshree HAWKINS. Please return her call at [phone]. documented in this encounter Plan of Treatment Scheduled Procedures Name Priority Associated Diagnoses Date/Time COLONOSCOPY Diarrhea documented as of this encounter Visit Diagnoses Not on filedocumented in this encounter Additional Health Concerns Assessment Noted Time PHQ-9 Depression Total Score: 3 05/30/2019 10:59 AM CD T documented as of this encounter Care Teams Applied Behavior Science Specialist Relationship Specialty Start Date End Date Alberto Locke M.D. PCP - General Family Medicine 04/27/19 [address] [place] [phone] documented as of this encounter
--- OUTSIDE RECORDS SUMMARY | 2022-06-29 09:26 | XMS_ITS | Encounter Summary ---
:1985 Author Organization [facility] Address [address] [place] [address] Care Team Providers Name Role Phone Alberto Locke M.D. Primary Care Provider Reason for Visit Reason Comments Leg Pain lower right leg,red,swollen, ,alittle painful,for few weeks Outpatient (Routine) - Closed Specialty Diagnoses / Procedures Referred By Contact Refer red To Contact Family Medicine Alberto Locke M.D. [address] [phone] Referral ID Status Reason Start Date Expiration Date Visits Requ ested Visits Authorized [id number] Closed 12/06/2019 12/05/2020 1 1 Encounter Details Date Type Department Care Team Description 12/06/2019 Office Visit Department of Alberto Campbell M.D. [address] [place] [id number] Pain Lower Leg Right (Primary Dx); Medicine, [place] Nuno Beck M.D. [address] [place] [phone] Swelling Leg Right; Clinic, in [place], Pain Ne ck; [place] Depression Major Recurrent ( HCC); [address] [place] [address] Body Mass Index 50.0 To 59.9 Adult (HCC); [place] [phone] Social History Tobacco Use Types Packs/Day [...] or relatives? How often do you attend yazidi or restoration More than 4 time s per year 07/09/2020 services? Do you belong to any clubs or organizations No 04/19/2019 such as yazidi groups, unions, fraternal or athletic groups, or [...] Sign Reading Time Taken Comments Blood Pressure 130/86 12/06/2019 12:48 PM CDT Pulse 93 12/06/2019 12:48 PM CDT Temperature 36.3 ??C (97.3 ??F) 12/06/2019 12:48 PM CDT Respiratory Rate - - Oxygen Saturation - - Inhaled Oxygen Concentration - - Weight 145 kg (319 lb 10.7 oz) 12/06/2019 12:48 PM CDT Height - - Body Mass Index 58.45 03/03/2018 6:59 AM CDT documented in this encounter Progress Notes Nuno Beck M.D. - 12/06/2019 1:00 PM CDT SUBJECTIVE CHIEF COMPLAINT/REASON FOR VISIT Chief Complaint Patient presents with ??? Leg Pain lower right leg,red,swollen,,alittle painful,for few weeks HISTORY OF PRESENT ILLNESS Carol Magalys Cooley presents for recheck. He had a telephone visit with her PCP today and was complaining of 2 weeks right lower leg swelling pain. More discomfort in the posterior leg. She also felt that was some redness in her lower leg ankle that was more pronounced this morning but not as bad this afternoon. No reported recent trauma. No recent prolonged immobilization. No shortness of breath. No hemoptysis or pleuritic chest pain she believes her grandfather had unprovoked blood clots when he was older. She is not on any oral contraceptive pills. Her PCP felt that with her constellation of symptoms she should be seen in a [id number] to rule out DVT. No fever, chills, sweats. She also reports episodes of a shock-like pain in her neck traveling down the right arm have been occurring over the last several weeks. Tend to happen more when she is seated. Never wakes her at night. No specific positions that she can think of that trigger the pain. Pain can come on quickly and last for several seconds. Pain is not long lasting greater than seconds to a minute. Denies any associated weakness of the right arm or neck. Denies any recent trauma to the right arm. She reports right heel pain plantar surface that has been present since the of her child in April. Described as a sharp stabbing pain more likely to occur if she 1st gets out of bed in the morning or if she has been sitting or lying for prolonged period of time and then gets up to walk. History of depression anxiety and recent worsening of these symptoms. Her PCP has just prescribed venlafaxine that she will be picking up later. Also will be setting of appointment with psychology. REVIEW OF SYSTEMS Constitutional: Negative for fatigue, fever and loss of appetite. Respiratory: Negative for dry cough, shortness of breath and wheezing. Cardiovascular: Negative for chest pain, pressure or tightness, swelling in the legs or feet and rapid or fluttering heart beat. Musculoskeletal: As above. Neurological: Negative for light-headedness and headaches. CURRENT MEDICATIONS Outpatient Medications Prior to Visit Medication Sig Dispense Refill ??? acetaminophen (for_TYLENOL) 500 mg tablet Take 1-2 tablets by mouth every 6 (six) hours as needed. ??? omeprazole (for_PriLOSEC) 40 mg capsule Take 40 mg by mouth every morning before breakfast. Reflux/GERD ??? venlafaxine XR (EFFEXOR-XR) 75 mg 24 hr capsule Take 1 capsule (75 mg total) by mouth daily. Take with food. 30 capsule 3 ??? polymyxin B-trimethoprim (POLYTRIM) 10,000 unit- 1 mg/mL ophthalmic solution Administer 1 drop into the right eye 4 (four) times a day. (Patient not taking: Reported on 12/06/2019 ) 10 mL 0 No facility-administered medications prior to visit. I have reviewed Allergies, Medical History, Surgical History, Family History and Social History. OBJECTIVE VITAL SIGNS Vitals: 12/06/19 1248 BP: 130/86 Pulse: 93 Temp: 36.3 ??C Body mass index is 58.45 kg/m??. PHYSICAL EXAMINATION General: Patient is in no distress. Alert and communicates without difficulty. Cooperative. Appropriately dressed and normal hygiene. Eyes: Normal lids and conjunctivae. Extraocular movements intact. Neck: Supple. No lymphadenopathy, no thyromegaly. Heart: Normal S1, S2. Lungs: Clear to auscultation bilaterally. No wheezing or rhonchi. Neurologic: Cranial nerves 2-12 intact. No focal deficits. Right leg: She does have 1+ nonpitting edema lower 3rd fried to the foot. No warmth or fluctuance. Tenderness posterior lower calf and equivocal Homans. Right foot: She does have tenderness at the plantar fascia insertion into the calcaneus. DIAGNOSTICS Radiology results: EXAM: US LOWER EXTREMITY VEINS RIGHT Exam performed with color and spectral Doppler analysis. ?? COMPARISON: 04/12/19 ?? FINDINGS: ?? RIGHT: The common femoral, upper deep femoral, femoral, and popliteal veins are widely patent, without thrombus. The posterior tibial, peroneal, soleal and gastrocnemius veins were segmentally visualized and are normal where seen. The great saphenous vein is patent and negative for thrombus. ?? IMPRESSION: 1. Negative for Acute DVT. ASSESSMENT / PLAN 1. Right leg swelling and calf pain -no evidence DVT -discussed avoiding salty foods and medications that can contribute to leg swelling which would include NSAIDs -recommend compression stockings on in the morning and off at night and she will see if she can get some of these at a local store or [employer] 2. 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 Plantar fasciitis right -ice and calf stretches -night splint in she will see if she can get 1 at a local store or on [employer] -avoid walking barefoot and try to wear shoes that have good arch supports -if significant worsening or not improving can call to have a referral set up to Podiatry 4. Depression 5. Anxiety -will be starting on venlafaxine as recommended by her PCP and also visits with counselor 6. Body mass index is 58.45 kg/m??. - work on diet and decreased portions along with increased and routine exercise. documented in this encounter Plan of Treatment Scheduled Procedures Name Priority Associated Diagnoses Date/Time COLONOSCOPY Diarrhea documented as of this encounter Results US Lower Extremity Veins [...] Negative for Acute DVT. Nuno Beck M.D. IMSendy US PROCEDURES documented in this encounter Visit Diagnoses Diagnosis Pain Lower Leg Right - Primary Swelling Leg Right Pain Neck Depression Major Recurrent (HCC) Body Mass Index 50.0 To 59.9 Adult (HCC) Fasciitis Plantar Pain Lower Leg Right Swelling Leg Right documented in this encounter Additional Health Concerns Assessment Noted Time PHQ-9 Depression Total Score: 6 12/06/2019 10:58 AM CD T documented as of this encounter Care Teams Make Ready Mechanic Relationship Specialty Start Date End Date Alberto Locke M.D. PCP - General Family Medicine 04/27/19 [address] [place] [id number] documented as of this encounter
--- OUTSIDE RECORDS SUMMARY | 2022-06-29 09:26 | XMS_ITS | Encounter Summary ---
:1985 Author Organization [facility] Address [address] [place] [address] Care Team Providers Name Role Phone Alberto Locke M.D. Primary Care Provider Encounter Details Date Type Department Care Team Description 05/31/2019 Hospital Encounter Department of Alberto Locke Anemia P regnancy Laboratory Medicine [facility] (HCC) in [address] [address] [place] [address], [place] [phone] (Work) [phone] Social History Tobacco Use Types Packs/Day Years [...] or relatives? How often do you attend methodist or yazidi More than 4 time s per year 07/09/2020 services? Do you belong to any clubs or organizations No 04/19/2019 such as methodist groups, unions, fraternal or athletic groups, or [...] to pay for the very basics like [employer] hard 07/09/2020 food, housing, medical care, [...] every 6 (six) tablet hours as needed. ketoconazole (NIZORAL) Apply 1 application 30 g 0 03/201906/13/2019 2 % cream topically daily for 14 days. buPROPion (WELLBUTRIN Take 1 tablet (150 mg 180 tablet 1 04/201912/06/2019 SR) 150 mg 12 hr tablet total) by mouth 2 (two) times a day. Start one one a day for the first week omeprazole Take 40 mg by mouth 0 11/04 (for_PriLOSEC) 40 mg every morning before capsule breakfast. Reflux/GERD documented as of this encounter Plan of Treatment Scheduled Procedures Name Priority Associated Diagnoses Date/Time COLONOSCOPY Diarrhea documented as of this encounter Procedures Procedure Name Priority Date/Time Associated Diagnosis Comme nts CBC WITH Routine 05/31/2019 10:28 AM Anemia Resu lts for this DIFFERENTIAL, B CDT (HCC) procedur e are in the results section. documented in this encounter Results CBC with Differential, Blood [...] Organization Address City/State/ZIP Code Phon e Number [facility]- [address] [place], [place] [address] [address] [facility] [place] [address] System in [place] [address] documented in this encounter Visit Diagnoses Diagnosis Anemia (HCC) documented in this encounter Additional Health Concerns Assessment Noted Time PHQ-9 Depression Total Score: 3 05/30/2019 10:59 AM CD T documented as of this encounter Care Teams Director Global Relationship Specialty Start Date End Date Alberto Locke M.D. PCP - General Family Medicine 04/27/19 [address] [place] [phone] documented as of this encounter
--- OUTSIDE RECORDS SUMMARY | 2022-06-29 09:26 | XMS_ITS | Encounter Summary ---
:1985 Author Organization [facility] Address [address] [place] [address] Care Team Providers Name Role Phone Alberto Locke M.D. Primary Care Provider Reason for Visit Reason Comments COVID Nurse Line Encounter Details Date Type Department Care Team Description 12/06/2019 Clinical Communication Division of Emerita Pereira Nurse Line [facility] [place] L, R.N. [facility] [address] [place] [phone] [place] [phone] [address] [facility] (Work) [place] [address] Social History Tobacco Use Types Packs/Day Years [...] How often do you attend holiness or taoism More than 4 time s per year [...] this encounter Miscellaneous Notes Telephone Encounter - Emerita Pereira R.N. - 12/06/2019 11:32 AM CDT COVID-19 Nurse Line Screening ASSESSMENT COVID 19 Screening Have you had close contact with a person who has a LABORATORY CONFIRMED case of COVID-19?: No - Continue screening. In the last 48 hours have you had any of the following symptoms?: No - Complete screening. Consider alternative diagnosis. We are not currently testing or isolating patients or visitors who have no symptoms and no close contact. PLAN Endpoint recommendation: Screening negative, testing not indicated at this time and Home Care Care Points provided: Standard precautions for all patients: Wash hands often with soap and water for at least 20 seconds, especially after blowing your nose, coughing, sneezing, or having been in a public place. If soap and water aren't available, use a hand grand scribe that contains at least 60% alcohol. Avoid touching your eyes, nose and mouth. Clean and disinfect frequently touched surfaces daily. Cover your mouth and nose with a cloth face cover when around others or in public. The cloth face cover is not a substitute for social distancing. Continue to keep about 6 feet between yourself and others. Stay home as much as possible (only going out for essential items or medical care). Educational Resource: https://www.cdc.gov/coronavirus/2019-ncov/fvarjch-abmqlke-uwds/index.html Education: patient/caregiver Patient/caregiver able to teach back Patient agreeable to plan of care: Yes The following references were used: [facility] novel coronavirus (COVID- 19) resources documented in this encounter Plan of Treatment Scheduled Procedures Name Priority Associated Diagnoses Date/Time COLONOSCOPY Diarrhea documented as of this encounter Visit Diagnoses Not on filedocumented in this encounter Additional Health Concerns Assessment Noted Time PHQ-9 Depression Total Score: 6 12/06/2019 10:58 AM CD T documented as of this encounter Care Teams Tunnel Man Relationship Specialty Start Date End Date Alberto Locke M.D. PCP - General Family Medicine 04/27/19 [address] [place] [phone] documented as of this encounter
--- OUTSIDE RECORDS SUMMARY | 2022-06-29 09:26 | XMS_ITS | Encounter Summary ---
:1985 Author Organization [facility] Address [address] [place] [address] Care Team Providers Name Role Phone Alberto Locke M.D. Primary Care Provider Encounter Details Date Type Department Care Team Description 04/25/2019 Orders Only Department of Family Alberto Locke M.D. Medicine, [facility], [address] [facility] [place] [address] [place] [address] [place] [address] [phone] Social History Tobacco Use Types Packs/Day Years [...] How often do you attend tenriism or evangelical More than 4 time s [...] as of this encounter Care Teams Manager Utility Relationship Specialty Start Date End Date Alberto Locke M.D. PCP - General Family Medicine 04/27/19 [address] [place] [phone] documented as of this encounter
--- OUTSIDE RECORDS SUMMARY | 2022-06-29 09:26 | XMS_ITS | Encounter Summary ---
:1985 Author Organization [facility] Address [address] [place] [address] Care Team Providers Name Role Phone Alberto Locke M.D. Primary Care Provider Reason for Visit Reason Comments URI Appointment Request (Routine) - Closed Specialty Diagnoses / Procedures Referred By Contact Refer red To Contact Family Medicine Referral ID Status Reason Start Date Expiration Date Visits Requ ested Visits Authorized [id number] Closed 09/11/2019 09/10/2020 1 1 Encounter Details Date Type Department Care Team Description 09/11/2019 Office Visit Department of Family [facility] (Primary Dx); Medicine, [place] COUNTERSINKER, C.N.P., Phar yngitis Acute; Clinic, in [place] D.N.PBrittaney Body Mass Index 50.0 To 59.9 Adult (HCC) ; [place] [id number] Abuse Tobacco Smoking [address] [place] [phone] Social History Tobacco Use Types Packs/Day Years [...] How often do you attend uatsdin or episcopal More than 4 time s [...] Sign Reading Time Taken Comments Blood Pressure 130/73 09/11/2019 9:34 AM PSYCHOLOGY CLINICIAN Pulse 92 09/11/2019 9:34 AM PSYCHOLOGY CLINICIAN Temperature 35.7 ??C (96.3 ??F) 09/11/2019 9:34 AM PSYCHOLOGY CLINICIAN Respiratory Rate - - Oxygen Saturation 95% 09/11/2019 9:34 AM PSYCHOLOGY CLINICIAN Inhaled Oxygen Concentration - - Weight 136 kg (299 lb 13.2 oz) 09/11/2019 9:34 AM PSYCHOLOGY CLINICIAN Height - - Body Mass Index 54.82 03/03/2018 6:59 AM CDT documented in this encounter Progress Notes Aline Cooley L.P.N. - 09/11/2019 9:30 AM CST Here for cold symptoms per scheduling note. No Jh Maint due. Woke on Wednesday with sore throat and dry cough. Kids are also sick, two of them were placed on abx last Wednesday. sick x 3 weeks is five months old and the other is 2 years old. 11 year old wokewith CHOWDHURY and a cough this am. Body aches, sweating, fever off and on she believes as she's having chills and sweats. Headache continues, eyes are painful. Some SOB and LOPEZ for sure, some dizziness. Denies any ear pain. Very fatigued. No h/o asthma. No fever reducers today. HOLOGY CLINICIAN Gerda Pike APRN, C.NJud, D.N.P. - 09/11/2019 9:30 AM CST SUBJECTIVE CHIEF COMPLAINT/REASON FOR VISIT Carol Cooley is a 33 y.o. female who presents for evaluation of URI. HISTORY OF PRESENT ILLNESS Carol Cooley presents for evaluation of upper respiratory symptoms. Symptoms started last Wednesday, with cough, headache malaise, body aches, sore throat and fever. Patient states her children havebeen sick with similar symptoms, two of which were placed on antibiotics last Wednesday. Her 5-month- old has been sick for the previous three weeks and her 2-year-old has been sick for about a week. She is 11-year-old who also woke up with headache and cough this morning. She states the infant and 2-year-old have not been getting better after initiation of the antibiotics. REVIEW OF SYSTEMS A brief review of systems was negative except for that mentioned in the history of present of illness. CURRENT MEDICATIONS Current Outpatient Medications Medication Sig ??? acetaminophen [...] a day for the first week ??? FLUoxetine (PROzac) 20 mg capsule Take 1 capsule (20 mg total) by mouth daily. ALLERGIES/CONTRAINDICATIONS Allergies Allergen Reactions ??? Penicillins Other (see comments) Does not recall reaction- reports reaction during childhood. OBJECTIVE PHYSICAL EXAMINATION Vital Signs: BP 130/73 (BP Location: Left arm, Patient Position: Sitting, Cuff Size: Large) Pulse 92 Temp (!) 35.7 ??C (Temporal) Wt 136 kg SpO2 95% BMI 54.82 kg/m?? Body mass index is 54.82 kg/m??. General: This patient is alert and in no acute distress. Diaphoretic. HEENT: Pupils are PERRLA, conjunctivae clear without hemorrhages or exudates. Auditory canals are normal without erythema or edema, TMs are pearly baeza and intact without erythema. Oral cavity is adequately hydrated, posterior pharynx is erythematous with tonsillar hypertrophy 3+, no tonsillar exudate present. Neck: Supple with cervical lymphadenopathy. Respiratory: Effort is easy, lung sounds are clear to auscultation. Cardiovascular: S1 and S2 are present, normal rate and rhythm. ASSESSMENT/PLAN 1. Cough Influenza testing is negative. Discussed with patient that symptoms are most likely viral, and she should present for follow-up if she develops worsening symptoms, fever continuing past seven days, relief of symptoms followed by worsening symptoms. She was advised to remain out of work until she has been fever free for 24 hours. Discussed that symptoms may be consistent with mononucleosis, however she declines testing at this time. - Influenza A/B and RSV, PCR, Point of Care 2. Pharyngitis Acute Strep test is negative. - Strep Group A, PCR, Point of Care Patient was instructed to follow up in primary care if symptoms are worsening or there is no improvement over the next several days. Plan was discussed with patient and is in agreement with plan. All questions were answered, side effects of any/all new medications were discussed. Patient left in no acute distress. Ready to learn. No apparent learning barriers were identified. Learning preferences include listening. Explained diagnosis and treatment plan. Patient/Child/Caregiver expressed understanding of the content. Gerda Pike APRN, C.N.P., D.N.P. HOLOGY CLINICIAN documented in this encounter Plan of Treatment Scheduled Procedures Name Priority Associated Diagnoses Date/Time COLONOSCOPY Diarrhea documented as of this encounter Procedures Procedure Name Priority Date/Time Associated Diagnosis Comme nts INFLUENZA A, B, Routine 09/11/2019 10:29 AM Resul ts for this RSV, PCR, POCT PSYCHOLOGY CLINICIAN procedure are in the results section. STREP GROUP A, PCR, Routine 09/11/2019 10:17 AM R esults for this POCT PSYCHOLOGY CLINICIAN procedure are i n the results section. STREP GROUP A, PCR, Routine 09/11/2019 9:52 AM Pharyngitis Acu te Results for this POCT PSYCHOLOGY CLINICIAN procedure are i n the results section. INFLUENZA A, B, Routine 09/11/2019 9:52 AM Cough Result s for this RSV, PCR, POCT PSYCHOLOGY CLINICIAN procedure are in the results section. documented in this encounter Results Influenza A/B and RSV, PCR, Point of Care (09/11/2019 10:29 AM PSYCHOLOGY CLINICIAN) P athologist Signature Influenza A, Negative Negative 09/11/2019 [facility]FL POCT 10:29 AM PSYCHOLOGY CLINICIAN Influenza B, Negative Negative 09/11/2019 [facility] POCT 10:29 AM PSYCHOLOGY CLINICIAN Resp Syncytial Negative Negative 09/11/2019 [facility] Virus, POCT 10:29 AM PSYCHOLOGY CLINICIAN Specimen Anatomical Collection Method Collection Time Receive d Time (Source) Location / / Volume Laterality Varies 09/11/2019 10:29 09/11/2019 AM PSYCHOLOGY CLINICIAN 10:30 AM PSYCHOLOGY CLINICIAN Generic Rals LAB POCT ORDERABLES - DEVICE Performing Organization Address [facility] Phon e Number [address] [place] [address] [place] [address] [address] Strep Group A, PCR, Point of Care (09/11/2019 10:17 AM PSYCHOLOGY CLINICIAN) P athologist Signature Strep Group A, Negative Negative 09/11/2019 [facility] PCR, POCT 10:17 AM PSYCHOLOGY CLINICIAN Specimen Anatomical Collection Method Collection Time Receive d Time (Source) Location / / Volume Laterality Varies 09/11/2019 10:17 09/11/2019 AM PSYCHOLOGY CLINICIAN 10:21 AM PSYCHOLOGY CLINICIAN Generic Rals LAB POCT ORDERABLES - DEVICE Performing Organization Address [facility] Phon e Number [address] [place] [address] [place] [address] [address] Strep Group A, PCR, Point of Care (09/11/2019 9:52 AM PSYCHOLOGY CLINICIAN) Analysis Performed At Patho logist Time Signature Strep Group A, Collected DEFAULT 09/11/2019 [facility] PCR, POCT 9:58 AM PSYCHOLOGY CLINICIAN Specimen Anatomical Collection Method Collection Time Receive d Time (Source) Location / / Volume Laterality Varies (Throat) 09/11/2019 9:52 AM 2019 9:58 PSYCHOLOGY CLINICIAN AM PSYCHOLOGY CLINICIAN Kendal Camacho APRNNLebron., D.N.P. LAB POCT ORDERABL ES - DEVICE Performing Organization Address [facility] Code Phon e Number [address] [address] [place] [address] Influenza A/B and RSV, PCR, Point of Care (09/11/2019 9:52 AM PSYCHOLOGY CLINICIAN) Analysis Performed At Patho logist Time Signature Influenza A, Collected DEFAULT 09/11/2019 [facility]FL B, RSV, PCR, 9:58 AM PSYCHOLOGY CLINICIAN POCT Specimen Anatomical Collection Method Collection Time Receive d Time (Source) Location / / Volume Laterality Varies 09/11/2019 9:52 AM 0 9:58 (Nasopharynx) PSYCHOLOGY CLINICIAN AM PSYCHOLOGY CLINICIAN Kendal Camacho APRNN.P., D.N.P. LAB POCT ORDERABL ES - DEVICE Performing Organization Address [facility] Phon e Number [address] [address] [place] [address] [address] documented in this encounter Visit Diagnoses Diagnosis Cough Unspecified Type - Primary Pharyngitis Acute Body Mass Index 50.0 To 59.9 Adult (HCC) Abuse Tobacco Smoking documented in this encounter Additional Health Concerns Assessment Noted Time PHQ-9 Depression Total Score: 3 05/30/2019 10:59 AM CD T documented as of this encounter Care Teams Security Business Analyst Relationship Specialty Start Date End Date Alberto Locke M.D. PCP - General Family Medicine 04/27/[address] [place] [address] NEHEMIAH Rivera [phone] documented as of this encounter
--- OUTSIDE RECORDS SUMMARY | 2022-06-29 09:26 | XMS_ITS | Encounter Summary ---
:1985 Author Organization [facility] Address [address] [place] [address] Care Team Providers Name Role Phone Alberto Locke M.D. Primary Care Provider Encounter Details Date Type Department Care Team Description 07/03/2019 Orders Only Department of Family Alberto Locke M.D. Medicine, [facility], [address] [facility] [place] [address] [address] [facility] [place] [address] [phone] Social History Tobacco Use Types Packs/Day Years [...] How often do you attend muslim or mosque More than 4 time s per year [...] to pay for the very basics like [employer] hat hard 07/09/2020 food, housing, medical care, [...] documented as of this encounter Care Teams Pin Drafting Machine Operator Relationship Specialty Start Date End Date Alberto Locke M.D. PCP - General Family Medicine 04/27/19 [address] [place] [address] documented as of this encounter
--- OUTSIDE RECORDS SUMMARY | 2022-06-29 09:26 | XMS_ITS | Encounter Summary ---
:1985 Author Organization [facility] Address [address] [place] [address] Care Team Providers Name Role Phone Blaire Bundy P.A.-C. Primary Care Provider [phone] Reason for Referral Outpatient (Routine) - Closed Specialty Diagnoses / Procedures Referred By Contact Refer red To Contact Obstetrics and Diagnoses PAR Melany Mont[facility] Gynecology CHRISTOPH RIVERO, M.S.N., B.S.N., R.N. [address] [facility] [place] [address] Referral ID Status Reason Start Date Expiration Date Visits Requ ested Visits Authorized [id number] Closed 04/19/2019 04/18/2020 1 1 Scheduling Instructions Add to my schedule 0815 Reason for Visit Reason Comments Post-op Visit Encounter Details Date Type Department Care Team Description 04/19/2019 Office Visit Department of Melany Montoya, S ection Obstetrics and CHRISTOPH RIVERO, Delivery ([facility] ) Gynecology in [facility] M.S.NBrittaney, B.S.N., (Primar y Dx) [place], [place] R.N. [address] [facility] [address] [facility] [place] [place] [address] [phone] Social History Tobacco Use Types Packs/Day Years [...] or relatives? How often do you attend spiritism or orthodoxy More than 4 time s per year 07/09/2020 services? Do you belong to any clubs or organizations No 04/19/2019 such as spiritism groups, unions, fraternal or athletic groups, or [...] Sign Reading Time Taken Comments Blood Pressure 122/94 04/19/2019 9:53 AM CDT Pulse - - Temperature 36.6 ??C (97.9 ??F) 04/19/2019 9:53 AM CDT Respiratory Rate - - Oxygen Saturation - - Inhaled Oxygen Concentration - - Weight 138 kg (304 lb 14.3 oz) 04/19/2019 9:53 AM CDT Height - - Body Mass Index 55.75 03/03/2018 6:59 AM CDT documented in this encounter Progress Notes Melany Montoya, JOSEFA, CHRISTOPH - 04/19/2019 10:00 AM CDT Kira Cooley presents at 1 week postop. She is cheerful and positive, still reeling from the events of the last week. She seems thrilled with a baby girl, has all the supplies already, much familysupport. She is complaining of night chills/sweating which goes away. Her incision no pain Bleeding minimal. going great. Incision line has a small of amount of discharge, but no signs of infection. However around the areaof incision, 1-2 inch of red excoriated area noted, skin is removed with hydrogen peroxide and 4X4. Incision is cleaned as well and no separation of the incision is noted. No pain reaction to thisbeing done. Antibiotic ointment applied to areas. telfa applied loosely Impression: No signs of infection Probable reaction to the dressing used in hospital which was removed at time of discharge will see Kira tomorrow to be sure area is improving. kira given instructions for cleaning and care, supplies given. Answers for HPI/ROS submitted by the patient on 04/19/2019 No general issues: Yes No eye issues: Yes No ENT issues: Yes Rapid or fluttering heart beats: Yes No respiratory issues: Yes No GI issues: Yes Back pain/stiffness: Yes No skin issues: Yes No neurologic issues: Yes Loud snoring: Yes Feeling nervous, anxious or on edge: Yes No blood/lymph issues: Yes No urinary/reproductive issues: Yes documented in this encounter Plan of Treatment Scheduled Procedures Name Priority Associated Diagnoses Date/Time COLONOSCOPY Diarrhea Scheduled Referrals Name Type Priority Associated Order Schedule Diagnoses Obstetrics and Outpatient Referral Routine Expect ed: Gynecology office 04/20/2019 visit (clinic) (Approximate) , Expires: 04/19/2022 documented as of this encounter Visit Diagnoses Diagnosis Section Delivery (HCC) - Primar y documented in this encounter Additional Health Concerns Assessment Noted Time PHQ-9 Depression Total Score: 7 04/07/2017 9:39 AM CDT documented as of this encounter Care Teams Assistant Professor Of Geography Relationship Specialty Start Date End Date Blaire Bundy P.A.-C. PCP - General 02/04/17 04/26/19 documented as of this encounter
--- OUTSIDE RECORDS SUMMARY | 2022-06-29 09:26 | XMS_ITS | Encounter Summary ---
:1985 Author Organization [facility] Address [address] [place] [address] Care Team Providers Name Role Phone Alberto Locke M.D. Primary Care Provider Reason for Referral Outpatient (Routine) - Closed Specialty Diagnoses / Procedures Referred By Contact Refer red To Contact Family Alberto Hercules M.D. [facility] [address] [phone] Referral ID Status Reason Start Date Expiration Date Visits Requ ested Visits Authorized [id number] Closed 12/06/2019 12/05/2020 1 1 Scheduling Instructions Face to face or virtual depending on COV ID restrictions at that time ehavioral Health (Routine) - Closed Specialty Diagnoses / Procedures Referred By Contact Refer red To Contact Psychiatry / Psychiatry Diagnoses Depression Major Recurrent (HCC) Alberto Locke M.D. [facility] [address] [place] [phone] Referral ID Status Reason Start Date Expiration Date Visits Requ ested Visits Authorized [id number] Closed 12/06/2019 12/05/2020 1 1 utpatient (Routine) - Closed Specialty Diagnoses / Procedures Referred By Contact Refer red To Contact Family Alberto Hercules M.D. [facility] [address] [phone] Referral ID Status Reason Start Date Expiration Date Visits Requ ested Visits Authorized [id number] Closed 12/06/2019 12/05/2020 1 1 Scheduling Instructions Face to face family med but must do COVI D triage clearance first Reason for Visit Reason Comments Follow-up ? lab -hgb Outpatient (Routine) - Closed Specialty Diagnoses / Procedures Referred By Contact Refer red To Contact Family Medicine Alberto Locke M.D. [facility] Region [address] [place] [phone] Referral ID Status Reason Start Date Expiration Date Visits Requ ested Visits Authorized [id number] Closed 05/31/2019 05/30/2020 1 1 Encounter Details Date Type Department Care Team Description 12/06/2019 Virtual Visit Department of Alberto Campbell M.D. Depression Major Recurrent (HCC) (Primar y Dx); Medicine, [address] Edema [facility]le Right [facility], in [facility] [phone] [place] [address] [place], [place] (Work) [phone] Social History Tobacco Use [...] or relatives? How often do you attend voodoo or adventist More than 4 time s per year 07/09/2020 services? Do you belong to any clubs or organizations No 04/19/2019 such as voodoo groups, unions, fraternal or athletic groups, or [...] documented as of this encounter Progress Notes Alberto Locke M.D. - 12/06/2019 11:30 AM CDT HPI Patient is here via phone visit today for follow up of Depression. she reports the following symptoms or concerns she stopped the fluoxetine after a month last fall because she didn't think it helped. Her depression symptoms are ongoing. There has been a tragic suicide of an uncle and several attempted suicides by his son. She is very anxious and stressed. Patient is not taking their medications according to instructions. Important negatives are she denies suicidal ideations but feels stuck. She also complains of right ankle and leg swelling for 2 weeks. She denies injury or history of DVT.No recent prolonged immobilization or pneumonia. Her breathing feels OK and she does not have chest pain. She is not on BCP Patient Active Problem List Diagnosis ??? Body Mass Index 50.0 To 59.9 Adult ([facility]) ??? Abuse Tobacco Smoking ??? Migraine Headache ??? Apnea Sleep Obstructive ??? Gastroesophageal Reflux Disease NOS ??? Attention Deficit With Hyperactivity Disorder ??? Depression Major Recurrent ([facility]) Current Outpatient Medications Medication Sig ??? acetaminophen (for_TYLENOL) 500 mg tablet Take 1-2 tablets by mouth every 6 (six) hours as needed. ??? omeprazole (for_PriLOSEC) 40 mg capsule Take 40 mg by mouth every morning before breakfast. Reflux/GERD ??? polymyxin B-trimethoprim (POLYTRIM) 10,000 unit- 1 mg/mL ophthalmic solution Administer 1 drop into the right eye 4 (four) times a day. (Patient not taking: Reported on 12/06/2019 ) ??? venlafaxine XR (EFFEXOR-XR) 75 mg 24 hr capsule Take 1 capsule (75 mg total) by mouth daily. Take with food. Allergies Allergen Reactions ??? Penicillins Other (see [...] week Gets together: Once a week Attends adventist service: 1 to 4 times per year [...] SECTION; Surgeon: Xin De Leon M.D.; Location: [facility] OR ??? ENDOSCOPIC RETROGRADE CHOLANGIOPANCREATOGRAPHY (ERCP) N/A 11/08/2017 Procedure: ENDOSCOPIC RETROGRADE CHOLANGIOPANCREATOGRAPHY; Surgeon: Rubio Baker M.D.; Location: [facility] OR ??? ESOPHAGOGASTRODUODENOSCOPY N/A 11/11/2017 Procedure: ESOPHAGOGASTRODUODENOSCOPY; Surgeon: Rubio Baker M.D.; Location: [facility] GI LAB ??? LAPAROSCOPIC APPENDECTOMY N/A 09/08/2017 Procedure: LAPAROSCOPIC APPENDECTOMY; Surgeon: Edd Moeller D.O.; Location: [facility] OR ??? LAPAROSCOPIC CHOLECYSTECTOMY WITH CHOLANGIOGRAM N/A 03/03/2018 Procedure: LAPAROSCOPIC CHOLECYSTECTOMY POSSIBLE CHOLANGIOGRAM; Surgeon: Edd Moeller D.O.; Location: [facility] OR ??? OTHER CONVERTED SHX (SEE COMMENT) N/A 06/24/2017 >1. Normal spontaneous vaginal delivery. 2. Second-degree midline laceration and repair. ROS GENERAL: No fevers, no fatigue. HEENT: No sinus congestion, no ear pain. PULMONARY: No cough, no wheeze. CARDIOVASCULAR: Denies chest pain, dyspnea GI: No diarrhea, no blood in stools. : No pain with urination, rest as above M/S: no myalgia or arthralgia. Right leg edema abd right heel pain SKIN: No rash, no concerning macule change. PSYCH: No mood change. Sleep is okay. OBJECTIVE There were no vitals filed for this visit. Estimated body mass index is 54.82 kg/m?? as calculated from the following: Height as of 03/03/18: 157.5 cm. Weight as of 09/11/19: 136 kg. GEN: sounds well PSYCH: mood depressed, no thought disturbance, no suicidal ideations ASSESSMENT/PLAN: #1 Depression Major Recurrent (HCC) She will be started on Venlafaxine 74 mg day I will refer her semi urgently to [facility] social work #2 Edema Ankle Right Due to asymmetrical nature of this LE edema she will need to be [facility] I will have her talk to COVID triage nurse to clear her before she can schedule for visit with [facility] [address] doc today. She appears to have no COVID symptoms or risk on my assessment. If she is recommended to need COVID screening she may need to be seen in ER to rule out DVT. Follow up in 1 month(s) Consults and Follow-ups to Schedule Family Medicine office visit (clinic) Dec 06, 2019 Region: [facility] Provider needed?: Other Provider Specific provider: face to face family med Visit length: Long Visit type: General Urgent: unstable condition requiring immediate care to avoid medical harm Semi urgent: stable condition but with short term risk to progress to urgent Elective: stable condition with low risk of acuity progression Proc / rad likely: patient likely to require procedure (eg. Endoscopy) or advanced imaging (eg. MRIupon return) Surgery likely: patient likely to require surgery upon return Face to face family med but must do COVID triage clearance first Psychiatry and Psychology - Integrated behavioral health consult (clinic) Dec 06, 2019 (Approximate) Semi Urg - virtual ok Region: [facility] Region Visit type: Social Work Assessment If this consult is for an acute issue and needed urgently, submit the order and contact the performing department directly. For other instructions regarding appointments timing, please use the Scheduling Instructions field. Urgent: unstable condition requiring immediate care to avoid medical harm Semi urgent: stable condition but with short term risk to progress to urgent Elective: stable condition with low risk of acuity progression F2F: face to face, on-campus visit Virtual: video visit or telephone visit, provider may specify or patient preference Family Medicine office visit (clinic) January 05, 2020 (Approximate) Region: [facility] Region Provider needed?: Self Visit length: Long Visit type: General Urgent: unstable condition requiring immediate care to avoid medical harm Semi urgent: stable condition but with short term risk to progress to urgent Elective: stable condition with low risk of acuity progression Proc / rad likely: patient likely to require procedure (eg. Endoscopy) or advanced imaging (eg. MRIupon return) Surgery likely: patient likely to require surgery upon return Face to face or virtual depending on COVID restrictions at that time documented in this encounter Plan of Treatment Scheduled Procedures Name Priority Associated Diagnoses Date/Time COLONOSCOPY Diarrhea Scheduled Referrals Name Type Priority Associated Order Schedule Diagnoses Family Medicine Outpatient Referral Routine Expec pipe: office visit 12/06/2019, (clinic) Expires: 12/05/2022 Psychiatry and Outpatient Referral Routine Depression Major Ex pected: Psychology - Recurrent (HCC) 12/06/2019 Integrated (Approximate), behavioral health Expires: consult (clinic) 12/05/2022 Family Medicine Outpatient Referral Routine Expec pipe: office visit 01/05/2020 (clinic) (Approximate), Expires: 12/05/2022 documented as of this encounter Visit Diagnoses Diagnosis Depression Major Recurrent (HCC) - Prima ry Edema Ankle Right documented in this encounter Additional Health Concerns Assessment Noted Time PHQ-9 Depression Total Score: 6 12/06/2019 10:58 AM CD T documented as of this encounter Care Teams Teller Supervisor Relationship Specialty Start Date End Date Alberto Locke M.D. PCP - General Family Medicine 04/27/19 [address] [place] [phone] documented as of this encounter
--- OUTSIDE RECORDS SUMMARY | 2022-06-29 09:26 | XMS_ITS | Encounter Summary ---
:[address] [facility] Address [address] [place] [address] Care Team Providers Name Role Phone Blaire Bundy P.A.-C. Primary Care Provider [phone] Reason for Visit Reason Comments Post-op Visit Outpatient (Routine) - Closed Specialty Diagnoses / Procedures Referred By Contact Refer red To Contact Obstetrics and Diagnoses PAR Melany Montoya [facility] Gynecology STUNT PERFORMER, CHRISTOPH, M.S.N., B.S.N., R.N. [address] [place] [address] Referral ID Status Reason Start Date Expiration Date Visits Requ ested Visits Authorized [id number] Closed 04/19/2019 04/18/2020 1 1 Encounter Details Date Type Department Care Team Description 04/20/2019 Office Visit Department of Melany Montoya, S ection Obstetrics and JOSEFA, CHRISTOPH, Delivery ([facility] ) Gynecology in [facility] M.S.N., B.S.N., (Primar y Dx) [place], [place] R.N. [address] [facility] [address] [place] [id number] Social History Tobacco Use Types Packs/Day Years [...] or relatives? How often do you attend jehovah's witness or church More than 4 time s per year 07/09/2020 services? Do you belong to any clubs or organizations No 04/19/2019 such as jehovah's witness groups, unions, fraternal or athletic groups, or [...] documented as of this encounter Progress Notes Melany Montoya, JOSEFA, CHRISTOPH - 04/20/2019 8:15 AM CDT Carol Cooley returns today for check of her incision. She states no pain in area of incision. She denies chills and feverish feeling last evening like she has had in the past. Her incision is looking better today. Cleaned the incision with hydrogen peroxide ,antibiotic ointment and laid a telfa on it. The raw area around her incision is also much better today, Less red, healing. Patient will use a mirror to keep track of this. She is encouraged to use mild soap and water to the area. She will clean area as needed with hydrogen peroxide and has a few telfas to use. She will call if feverish or increased redness, drainage, odor or pain which is increasing. Asked to have Dr Locke check it next week when she sees him. Answers for HPI/ROS submitted by the patient [...] documented as of this encounter Care Teams Drying Oven Attendant Relationship Specialty Start Date End Date Blaire Bundy P.A.-C. PCP - General 02/04/17 04/26/19 documented as of this encounter
--- OUTSIDE RECORDS SUMMARY | 2022-06-29 09:26 | XMS_ITS | Encounter Summary ---
:1985 Author Organization [facility] Address [address] [place] [address] Care Team Providers Name Role Phone Alberto Locke M.D. Primary Care Provider Reason for Visit Reason Comments Care 6 week check Outpatient (Routine) - Closed Specialty Diagnoses / Procedures Referred By Contact Refer red To Contact Obstetrics and Diagnoses Section Delivery (HCC) Harleen Josue D.O. [facility] Gynecology [address] [place] [phone] Referral ID Status Reason Start Date Expiration Date Visits Requ ested Visits Authorized [id number] Closed 04/15/2019 04/14/2020 1 1 Encounter Details Date Type Department Care Team Description 05/30/2019 Office Visit Department of Leonora Reaves, Care Postpar frecho ([facility]) (Primary Dx); Obstetrics and FISHER SPONGE HOOKING, C.N.P. Section Delivery ([facility]); Gynecology in [address] Counsel[place] [address] [address] [place], [place] [phone] (Work) [phone] Social History Tobacco Use Types Packs/Day Years [...] How often do you attend scientology or mandaeism More than 4 time s per year [...] Sign Reading Time Taken Comments Blood Pressure 133/90 05/30/2019 10:53 AM CDT Pulse 96 05/30/2019 10:53 AM CDT Temperature 36 ??C (96.8 ??F) 05/30/2019 10:53 AM CDT Respiratory Rate 18 05/30/2019 10:53 AM CDT Oxygen Saturation 94% 05/30/2019 10:53 AM CDT Inhaled Oxygen Concentration - - Weight 136 kg (298 lb 15.1 oz) 05/30/2019 10:53 AM CDT Height - - Body Mass Index 54.66 03/03/2018 6:59 AM CDT documented in this encounter Progress Notes Leonora Reaves, FISHER SPONGE HOOKING, C.N.P. - 05/30/2019 11:00 AM CDT SUBJECTIVE CHIEF COMPLAINT/REASON FOR VISIT Chief Complaint Patient presents with ??? Care 6 week check HISTORY OF PRESENT ILLNESS: Ms. Cooley is a 33 y.o. here for a 6-week checkup. She had a primary delivery due to stress of a viable girl weight 8 pounds 11 oz. was unknown prior to delivery. She experienced some episodes of tachycardia, hypoxia, hypertension. Work up was negative. Received 2 units of blood while in the hospital. Since delivery, she initially was breast feeding, has now stopped. She has no signs of infection, bleeding or other complications. Has not resumed intercourse since delivery, does not have a partner at this time. We discussed contraception and she has chosen permanent sterilization. She signed federal sterilization form today should this be required. Last Pap smear 12/09/2016 and was NIL PROBLEM LIST: Patient Active Problem List Diagnosis ??? Body Mass Index 50.0 To 59.9 Adult (HCC) ??? Abuse Tobacco Smoking ??? Migraine Headache ??? Apnea Sleep Obstructive ??? Gastroesophageal Reflux Disease NOS ??? Attention Deficit With Hyperactivity Disorder ??? Depression Major Recurrent (HCC) ??? Section Delivery (HCC) MEDICAL HISTORY Past Medical History: Diagnosis Date ??? Hemorrhage Gastrointestinal 11/13/2017 ??? Hypovolemic Shock (HCC) 11/11/2017 ??? Sleep Apnea does not use CPAP machine SURGICAL HISTORY Past Surgical History: Procedure Laterality Date ??? SECTION N/A 04/12/2019 Procedure: SECTION; Surgeon: Xin De Leon M.D.; Location: [facility] OR ??? ENDOSCOPIC RETROGRADE CHOLANGIOPANCREATOGRAPHY (ERCP) N/A 11/08/2017 Procedure: ENDOSCOPIC RETROGRADE CHOLANGIOPANCREATOGRAPHY; Surgeon: Rubio Baker M.D.; Location: [facility] OR ??? ESOPHAGOGASTRODUODENOSCOPY N/A 11/11/2017 Procedure: ESOPHAGOGASTRODUODENOSCOPY; Surgeon: Rubio Baker M.D.; Location: [facility] GI LAB ??? LAPAROSCOPIC APPENDECTOMY N/A 09/08/2017 Procedure: LAPAROSCOPIC APPENDECTOMY; Surgeon: Edd Moeller D.O.; Location: [facility] OR ??? LAPAROSCOPIC CHOLECYSTECTOMY WITH CHOLANGIOGRAM N/A 03/03/2018 Procedure: LAPAROSCOPIC CHOLECYSTECTOMY POSSIBLE CHOLANGIOGRAM; Surgeon: Edd Moeller D.O.; Location: [facility] OR ??? OTHER CONVERTED SHX (SEE COMMENT) N/A 06/24/2017 >1. Normal spontaneous vaginal delivery. 2. Second-degree midline laceration and repair. CURRENT MEDICATIONS Current Outpatient Medications Medication Sig Dispense Refill ??? acetaminophen (for_TYLENOL) 500 mg tablet Take 1-2 tablets by mouth every 6 (six) hours as needed. ??? buPROPion (WELLBUTRIN SR) 150 mg 12 hr tablet Take 1 tablet (150 mg total) by mouth 2 (two) times a day. Start one one a day for the first week 60 tablet 1 ??? omeprazole (for_PriLOSEC) 40 mg capsule Take 40 mg by mouth every morning before breakfast. Reflux/GERD No current facility-administered medications for this visit. ALLERGIES/CONTRAINDICATIONS Allergies Allergen Reactions ??? Penicillins Other (see comments) Does not recall reaction- reports reaction during childhood. REVIEW OF SYSTEMS General: Negative. Breasts: Negative. GI: No constipation, diarrhea. Reproductive: See above, no vaginal discharge or pelvic pain. : No burning/pain with urination, no urinary incontinence. Psych: No depression or anxiety. OBJECTIVE VITAL SIGNS BP 133/90 (BP Location: Left arm, Patient Position: Sitting, Cuff Size: Large) Pulse 96 Temp 36 ??C (Temporal) Resp 18 Wt 136 kg LMP 06/29/2018 (Approximate) SpO2 94% ? No BMI 54.66 kg/m?? PHYSICAL EXAMINATION General: Patient is in no distress, alert. HEENT: Grossly normal. Neck: No nodes, no thyromegaly. Heart: Regular rate and rhythm. Lungs: Clear to auscultation bilaterally. No rales, no crackles. Abdomen: Soft, nontender to palpation. Low transverse incision is healed. Mackenzie type rash through panus where skin rests on skin, few areas of minor skin breakdown or healing. BS + x4. No masses, guarding or tenderness. Pelvis: Normal external genitalia BUS normal. Urethra normal. Bladder non tender, not enlarged. Vagina no abnormal discharge. No lesions. Normal mucosa and rugae Cervix appears normal, without lesion, well healed. Pap smear is not taken No cervical motion tenderness. Bimanual exam uterus non in size. Firm, mobile. Adnexa nontender, without masses. Anus normal. Extremities: No neurovascular compromise. No cyanosis, clubbing or edema. No edema, non tender. ASSESSMENT / PLAN #1 Care (HCC) Doing well. Interested in tubal sterilization. Will remain abstinent at this time. Consult placed to [facility] PATHOLOGY TECHNICIAN #2 Section Delivery (HCC) Mackenzie type rash on panus where skin rests on skin. Cleanse area with water, keep dry, apply antifungal cream as prescribed documented in this encounter Plan of Treatment Scheduled Procedures Name Priority Associated Diagnoses Date/Time COLONOSCOPY Diarrhea documented as of this encounter Visit Diagnoses Diagnosis Care (HCC) - Primary Section Delivery (HCC) Counseling Tubal Ligation documented in this encounter Additional Health Concerns Assessment Noted Time PHQ-9 Depression Total Score: 3 05/30/2019 10:59 AM CD T documented as of this encounter Care Teams Candy Polisher Relationship Specialty Start Date End Date Alberto Locke M.D. PCP - General Family Medicine 04/27/19 [address] [place] [phone] documented as of this encounter
--- OUTSIDE RECORDS SUMMARY | 2022-06-29 09:27 | XMS_ITS | Encounter Summary ---
:1985 Author Organization [facility] Address [address] [place] [address] Care Team Providers Name Role Phone Blaire Bundy PBrittaneyA.-CBrittaney Primary Care Provider Reason for Visit Reason Comments Pain She believes she has ingrown toenails on both her great toes - right worse than left. Nail Problem She believes she has ingrown toenails on both her great toes - right worse than left. Pain Right and left great toe kobi n. Nail Problem Right and left great toe kobi n. Outpatient (Routine) - Closed Specialty Diagnoses / Procedures Referred By Contact Refer red To Contact Orthopedic Surgery Diagnoses Pain Toe Pain Toe Blaire Bundy, [facility] Procedures ORS CONS FOOT POD P.A.-C. [address] [place], [place] [address] Referral ID Status Reason Start Date Expiration Date Visits Requ ested Visits Authorized [id number] Closed 02/18/2018 02/18/2019 1 1 Encounter Details Date Type Department Care Team Description 03/14/2018 Comprehensive Visit Department of Riccardo Cottrell, Ingrown Nail (Primary Dx); Orthopedic Surgery Mickey Nuñez Pain Toe; in [place], [facility] [address] FABIAN Onychomycosis; [place], [place] High Risk Medication [address] [place] [id number] [place], [place] [phone] (Work) [phone] Social History Tobacco Use Types Packs/Day Years [...] How often do you attend gnosticism or christianity More than 4 time s per year [...] or getting things needed for daily living? Sex Assigned at Date Recorded Female 11/19/2017 10:29 AM CDT documented as of this encounter Progress Notes Gloria Johnson D.P.M. - 03/14/2018 9:45 AM CDT CHIEF COMPLAINT / REASON FOR VISIT Chief Complaint Patient presents with ??? Left Foot - Pain, Nail Problem She believes she has ingrown toenails on both her great toes - right worse than left. ??? Right Foot - Pain, Nail Problem Right and left great toe pain. HISTORY OF PRESENT ILLNESS Carol Cooley is a 32 y.o. female who presents for evaluation of bilateral hallux nail plate changes and ingrown nail on the left. She states that this has been going on for the past couple of months but really the 1st episode she has had with it on the left. PAST MEDICAL HISTORY, SURGICAL HISTORY, SOCIAL HISTORY, FAMILY HISTORY, ALLERGIES, and MEDICATIONS were reviewed per the electronic health record tab dated 03/14/2018. ROS: Hepatic - negative, Constitutional - negative, Integumentary - negative, GI - negative, Musculoskeletal - see HPI PHYSICAL EXAMINATION: Neurovascular status intact bilaterally. The right hallux nail plate is thickened and mycotic and dorsal to plantar pressure causes some pain on the medial and lateral nail borders but there is no granuloma, drainage, or signs of infection. The left nail plate is only minor early thickened, but does have ingrown medial and lateral nail borders with granuloma and some mild serosanguineous drainage. No active purulence noted, and no indication for antibiotic. LABORATORY / RADIOLOGY Hepatic function panel ordered due to her recent elevated tests presumably due to her gallbladder stones. IMPRESSION/REPORT Onychomycosis bilateral hallux nail plate right worse than left Ingrown nail bilateral hallux left worse than right. PLAN: Discussed treatment options with the patient. At this time she does not want to consider permanent ENTIRE nail plate removal. The bilateral nail borders were wedged on the left, and treated with topical antibiotic and a bandage. Both nail plates were debrided to reduce the thickness. Will order hepatic function panel today, and if all is okay then we will have her start Lamisil 250 mg 1 tab p.o. daily. We will need to repeat that in 6 weeks, and patient is understanding and happy with this plan. If she has recurrent episodes with the borders being ingrown we can consider partial P& amp;A procedure in the future, but hopefully we can address some of her nail plate changes that may be contributing to this. documented in this encounter Plan of Treatment Scheduled Procedures Name Priority Associated Diagnoses Date/Time COLONOSCOPY Diarrhea documented as of this encounter Procedures Procedure Name Priority Date/Time Associated Diagnosis Comme nts HEPATIC FUNCTION Routine 03/14/2018 10:04 AM Onychomycos is Results for this PANEL, S CDT High Risk Medication procedu re are in the results section. documented in this encounter Results (ABNORMAL) Hepatic Function Panel (03/14/2018 10:04 AM CDT) [facility] Method Time Signature Bilirubin, Total, S 0.9 <=1.2 03/14/2018 [facility] mg/dL 10:53 AM [facility] Bilirubin, Direct, S 0.2 0.0 - 0.3 03/14/2018 [facility] mg/dL 10:53 AM [facility] Aspartate 18 8 - 43 03/14/2018 [facility] Aminotransferase U/L 10:53 AM CDT [facility] Alanine 15 7 - 45 03/14/2018 [facility] Aminotransferase U/L 10:53 AM CDT [facility] Alkaline 69 37 - 98 03/14/2018 [facility] Phosphatase, S U/L 10:53 AM CDT [facility] Albumin, S 3.5 3.5 - 5.0 03/14/2018 [facility] g/dL 10:53 AM CDT [facility] Protein, Total, S 6.2 (L) 6.3 - 7.9 03/14/2018 [facility] g/dL 10:53 AM CDT [facility] Specimen Anatomical Collection Method Collection Time Receive d Time (Source) Location / / Volume Laterality Blood (Blood, 03/14/2018 10:04 03/14/2018 Venous) AM CDT 10:09 AM CDT Gloria Johnson D.P.M. LAB BLOOD ADD-ON Performing Organization Address City/State/[facility] Code Phon e Number [facility]- [id number] [place] [id number] [facility] documented in this encounter Visit Diagnoses Diagnosis Ingrown Nail - Primary Pain Toe Onychomycosis High Risk Medication documented in this encounter Additional Health Concerns Assessment Noted Time PHQ-9 Depression Total Score: 7 04/07/2017 9:39 AM CDT documented as of this encounter Care Teams Rod Straightener Relationship Specialty Start Date End Date Blaire Bundy P.A.-C. PCP - General 02/04/17 04/26/19 documented as of this encounter
--- OUTSIDE RECORDS SUMMARY | 2022-06-29 09:27 | XMS_ITS | Encounter Summary ---
:1985 Author Organization [facility] Address [address] [place] [address] Care Team Providers Name Role Phone Blaire Bundy P.A.-C. Primary Care Provider [phone] Encounter Details Date Type Department Care Team Description 07/20/2018 Hospital Encounter Department of Marisol Irving Contrace ption Personal Laboratory Medicine MIGRANT LEADER, C.N.P. History in [address] [address] [place], [place] [phone] (Work) [phone] Social History Tobacco Use Types Packs/Day Years [...] or relatives? How often do you attend anabaptist or restorationist More than 4 time s per year 07/09/2020 services? Do you belong to any clubs or organizations No 04/19/2019 such as anabaptist groups, unions, fraternal or athletic groups, or [...] 6 (six) tablet hours as needed. omeprazole (for_PriLOSEC) Take 40 mg by mouth 0 11/04/2021 40 mg capsule every morning before breakfast. Reflux/GERD documented as of this encounter Plan of Treatment Scheduled Procedures Name Priority Associated Diagnoses Date/Time COLONOSCOPY Diarrhea documented as of this encounter Procedures Procedure Name Priority Date/Time Associated Diagnosis Comme nts TEST, Routine 07/20/2018 10:24 Contraception Persona l Results for this POCT, U (LAB) AM EMERGENCY MEDICINE PHYSICIAN ASSISTANT History procedure are in the results section. documented in this encounter Results Test, POCT, Urine (lab) (07/20/2018 10:24 AM EMERGENCY MEDICINE PHYSICIAN ASSISTANT) P athologist Signature Negative 07/20/2018 [facility] Test, POCT, U 10:31 AM EMERGENCY MEDICINE PHYSICIAN ASSISTANT [facility] Specimen Anatomical Collection Method Collection Time Receive d Time (Source) Location / / Volume Laterality Urine (Urine, 07/20/2018 10:24 07/20/2018 Clean Catch) AM EMERGENCY MEDICINE PHYSICIAN ASSISTANT 10:24 AM EMERGENCY MEDICINE PHYSICIAN ASSISTANT Kendal Carter APRNNJud LAB POCT ORDERABLES - DEVICE Performing Organization Address City/State/ZIP Code Phon e Number [facility] [address] [place] [address] [place] [address] [facility] documented in this encounter Visit Diagnoses Diagnosis Contraception Personal History documented in this encounter Additional Health Concerns Assessment Noted Time PHQ-9 Depression Total Score: 7 04/07/2017 9:39 AM CDT documented as of this encounter Care Teams Payroll Administrator Relationship Specialty Start Date End Date Blaire Bundy P.A.-C. PCP - General 02/04/17 04/26/19 documented as of this encounter
--- OUTSIDE RECORDS SUMMARY | 2022-06-29 09:27 | XMS_ITS | Encounter Summary ---
:1985 Author Organization [facility] Address [address] [place] [address] Care Team Providers Name Role Phone Blaire Bundy P.A.-C. Primary Care Provider [phone] Reason for Visit Reason Onset Date Comments assessment 07/01/2018 First call attempt Encounter Details Date Type Department Care Team Description 07/01/2018 Clinical Communication Department of Leonora Reaves Pr egnancy Obstetrics and JOSEFA C.N.PBrittaney assessment (First Gynecology in [address] call attem pt) [address] [phone] Social History Tobacco Use Types Packs/Day [...] or relatives? How often do you attend presybeterian or jainism More than 4 time s per year 07/09/2020 services? Do you belong to any clubs or organizations No 04/19/2019 such as presybeterian groups, unions, fraternal or athletic groups, or [...] documented as of this encounter Miscellaneous Notes Addendum Note - Maurice Ivey R.N. - 07/04/2018 8:40 AM CUFF KNITTER Addended by: MAURICE IVEY on: 07/04/2018 08:40 AM Modules accepted: Orders KNITTER Telephone Encounter - Maurice Ivey R.N. - 07/04/2018 8:36 AM CUFF KNITTER If yes to any of the following below the patient will NOT need a test: 1. History of tubal ligation no 2. Current unexpired IUD no 3. Current unexpired Nexplanon no 4. Current Depo injections with no gap in injections no 5. [place]auseno If NO to all questions above urine test is indicated prior to procedure Per VO/RB Marisol Brand HCG Qualitative Urine If test indicated, patient education prior to scheduling: Before any procedure in our clinic we require confirmation of status. To do so a urine test will be completed before your scheduled procedure. To confirm this test is accurate we ask that you abstain from intercourse for two weeks before the procedure KNITTER Telephone Encounter - Jayshree Morocho R.N. - 07/01/2018 2:39 PM CST Attempted to contact pt. Left message on identifiable VM to [facility] for more information KNITTER Telephone Encounter - Tejal Arora - 07/01/2018 2:00 PM CST Dear Nurse, Patient is not on control and would like to have Nexplanon or an IUD placed. Is there a way you can call Carol and see if a test is needed, prior to appointment. Thank you, Tejal [employer] KNITTER documented in this encounter Plan of Treatment Scheduled Procedures Name Priority Associated Diagnoses Date/Time COLONOSCOPY Diarrhea documented as of this encounter Results Test, POCT, Urine (lab) (07/20/2018 10:24 AM CUFF KNITTER) P athologist Signature Negative 07/20/2018 [facility] Test, POCT, U 10:31 AM CUFF KNITTER [facility] Specimen Anatomical Collection Method Collection Time Receive d Time (Source) Location / / Volume Laterality Urine (Urine, 07/20/2018 10:24 07/20/2018 Clean Catch) AM CUFF KNITTER 10:24 AM CUFF KNITTER Marisol Irving APRN C.N.PBrittaney LAB POCT ORDERABLES - DEVICE Performing Organization Address City/State/ZIP Code Phon e Number [facility] [address] [place] [address] [facility] documented in this encounter Visit Diagnoses Diagnosis Contraception Personal History - Primary documented in this encounter Additional Health Concerns Assessment Noted Time PHQ-9 Depression Total Score: 7 04/07/2017 9:39 AM CDT documented as of this encounter Care Teams Ticket Puller Relationship Specialty Start Date End Date Blaire Bundy P.A.-C. PCP - General 02/04/17 04/26/19 documented as of this encounter
--- OUTSIDE RECORDS SUMMARY | 2022-06-29 09:27 | XMS_ITS | Encounter Summary ---
:1985 Author Organization [facility] Address [address] [place] [address] Care Team Providers Name Role Phone Blaire Bundy P.A.-C. Primary Care Provider [phone] Reason for Visit Auth/Cert Specialty Diagnoses / Procedures Referred By Contact Refer red To Contact Diagnoses Precipitate Labor (HCC) Procedures x Referral ID Status Reason Start Date Expiration Date Visits Requ ested Visits Authorized [id number] 1 1 Encounter Details Date Type Department Care Team Description 04/12/2019 Anesthesia Event [facility] MAIN OR Alfonso Schmitz M.D., J.D. [address] [place] [id number] 701 Alfonso Tang, MANAGER NET, COMPLAINTS COORDINATOR [address] [facility] [place] [address] [place] [address] Anesthesia Record Procedure Summary Procedure Name Responsible Anesthesia Start Time Anesthesia Stop Time Anesthesiologist SECTION Alfonso Schmitz, 04/12/19 1003 04/12/19 1140 Reta Zamora Events Date Time Event Comment 04/12/2019 1003 An Start Machine/Equipmen t Checked Infection Precautions Foll owed Procedure/Site Verified NPO Sta tus Verified Supine Standard ASA Mon itors Applied 1003 In Room 1006 An Induction 1007 An Intubation 1008 Proc Start 1010 Occurred 1122 Proc Fin 1127 Turnover to ANE Staff 1131 Extubation/Airway Removed 1131 an stop data 1134 Out of Room 1140 An End I completed my h andoff to the receiving staff during [facility] we 1. Identified the patient 2. Ident ified the responsible provider 3. Revi ewed the pertinent medical history 4. Discu ssed the surgical course 5. Reviewed intra-o p anesthesia management and issues during an esthesia 6. Set expectations for post-procedure period 7. Allowed opportun ity for questions and acknowledgement of understanding. 1245 Name Total ceFAZolin 3 g propofol 10 mg/mL injection 250 mg succinylcholine 20 mg/mL injection 160 mg HYDROmorphone 1 mg/mL injection 1 mg dexamethasone 4 mg/mL injection 8 mg ondansetron PF 4 mg/2 mL injection 4 mg oxytocin 60 bradford-units/mL in NaCl 0.9% 500 mL infusio n (PITOCIN) 1,800 bradford-units ketorolac 30 mg injection 30 mg azithromycin 500 mg in NaCl 0.9% IVPB (ZITHROMAX) 500 mg lactated ringers free drip 1,200 mL Agents No agents on file. Blood No blood administrations on file. Lines, Drains, and Airways Type Details Placement Removal (RETIRED) Incision 09/08/17; 1718; 09/08/17 1718 by Molly, 1418 by Abdomen; and Antionette Marcos, R.N. Tnaw-Phdmfs-Ucjh groun dermabond; DRSG TRAFFIC ENGINEERING DIRECTOR d, Schedulin g WND ADH NEONAT 2X3.75 Automated Batch Job (x3); 05/13/21 (Removed by background completion utility); 1418 (Removed by background completion utility) (RETIRED) Incision 03/03/18; 0953; 03/03/18 0953 by 05/13/21 141 8 by Abdomen; dermabond; Darius Castro RBrittaneyN. [facility] katalina-Backgroun SPNG DRSG TRAFFIC ENGINEERING DIRECTOR GZ STRL d, Schedul ing 8PLY 2X2; 05/13/21 Automated Bat ch Job (Removed by background completion utility); 1418 (Removed by background completion utility) Peripheral IV Placement Date: 04/12/19 0000 by 04/15/19 1606 b y 04/12/19; Existing Cammie Schuster, R.N. Jean Pierre Ritchie, R.N. LDA Placed by: EMS; Catheter Size: 18 G; Orientation: Left; Location: Antecubital; Removal Date: 04/15/19; Removal Time: 1606; Removal Reason: Patient discharged ETT Placement Date: 04/12/19 1007 by Ha, 05/19/21 0000 by 04/12/19; Placement Alfonso Stout APRN, Fetzer, Megan J RRoverot Time: 1007 (created COMPLAINTS COORDINATOR via procedure documentation); Mask Ventilation: Not attempted; Type: Standard ETT; Single Lumen Tube Size: 7 mm; Cuffed: Yes; Location: Oral; Removal Date: 05/19/21 (Not present upon arrival to ED) (RETIRED) Incision 04/12/19; 1041; 04/12/19 1041 by 05/13/21 141 8 by Abdomen; [facility] AG Sarah Solis, [facility]-Backgroun SURG ADH 3.5X12 (x1); R.N. d, Schedul ing 05/13/21 (Removed by Automated B [facility] Job background completion utility); 1418 (Removed by background completion utility) Indwelling Urinary Placement Date: 04/12/19 1134 by 04/13/19 064 0 by Catheter 04/12/19; Placement Sarah Solis, Denise Aranda, Time: 1134; Inserted R.NBrittaney R.N. by: MD Haley; Type: Non-latex; Size: 16 Fr.; Balloon Size: 10 mL; Urine Returned: Yes; Removal Date: 04/13/19; Removal Time: 0640; Removal Reason: Per patient/family request documented in this encounter Social History Tobacco Use Types Packs/Day Years [...] or relatives? How often do you attend denominational or anglican More than 4 time s per year 07/09/2020 services? Do you belong to any clubs or organizations No 04/19/2019 such as denominational groups, unions, fraternal or athletic groups, or [...] AM CDT documented as of this encounter OR Notes Anesthesia Procedure Notes - Alfonso Bonner CRNA, RRoverto - 04/12/2019 3:54 PM CDTAssociated Order(s): Airway Airway Date/Time: 04/12/2019 10:07 AM Performed by: Alfonso Bonner CRNA RRoverto Authorized by: Alfonso Schmitz M.D., JBrittaneyDBrittaney Patient location during procedure: OR / Procedure Area PROCEDURE DETAILS: Mask difficulty assessment: not attempted Final airway type: video laryngoscope Laryngeal Manipulation: no Final best view of glottic structures - Cormack/Lehane Score: grade 2A ETT location: oral VL device: storz CMAC Storz CMAC blade size: D - adult Adult tube size: 7 Adult ETT distance at teeth/gum: 21 Oral tube type: standard ETT Cuffed: yes Number of attempt to successful placement: 1 Airway confirmation: bilateral breath sounds, positive ETCO2 and bilateral chest rise Other previous techniques attempted: none CONSENT Consent obtained: none - emergent situation PRE PROCEDURE DETAILS: Pre evaluation for airway management: procedure Urgency: elective Preop assessment of probable difficulty: questionable / suspicious difficult airway Preoxygenation: bag valve mask SEDATION / ANESTHESIA Anesthesia method: anesthesia POST PROCEDURE DETAILS: Procedure outcome: successful Airway event: no complications Anesthesia Postprocedure Evaluation - Alfonso Schmitz M.D., J.D. - 04/12/2019 12:39 PM CDT Patient: Carol Cooley Procedure Summary Date: 04/12/19 Room / Location: [facility] / [facility] GI Anesthesia Start: 1003 Anesthesia Stop: 1140 Procedure: SECTION (N/A ) Diagnosis: Surgeon: Xin De Leon M.D. Responsible Provider: Alfonso Schmitz M.D., Reta Anesthesia Type: general ASA Status: 2 - Emergent Anesthesia Type: general Last vitals Vitals Value Taken Time BP 109/72 04/12/2019 12:30 PM Temp Pulse 83 04/12/2019 12:35 PM Resp 19 04/12/2019 12:00 PM SpO2 93 % 04/12/2019 12:35 PM Vitals shown include unvalidated device data. Please reference Vitals flowsheet for most recent vital signs. Anesthesia Post Evaluation Cardiovascular status: hemodynamics (HR & BP) acceptable Respiratory status: patent airway with spontaneous effort Temperature: normothermic Oxygen requirements: room air Level of consciousness: awake Pain score: pain adequately controlled and/or at baseline Post Op nausea/vomiting: none Hydration status: euvolemic Anesthesia Preprocedure Evaluation - Alfonso Schmitz M.D., Reta - 04/12/2019 10:29 AM CDT Preprocedure Anesthesia & H&P Assessment Procedure Summary Anesthesia Start Date/Time: 04/12/19 1003 Procedure: SECTION (N/A ) Location: [address] / [facility] Surgeon: Xin De Leon M.D. Pertinent components of the patient's history including current problem list, medical history, surgical history, family history, social history, medications and allergies were reviewed. Present illnessand pre-op diagnosis were confirmed. The planned surgery / procedure was verified with the patient /legal guardian. The patient's general health condition remains unchanged PROBLEM LIST Relevant Problems PSYCH (+) Depression Major GI (+) Gastroesophageal Reflux Disease NOS Other (+) Abuse Tobacco Smoking (+) Body Mass Index 50.0 To 59.9 Adult (HCC) OBJECTIVE PHYSICAL EXAMINATION Airway (HEENT) Mallampati: III TM Distance: >3 FB Neck ROM: Full Mouth Opening: >3 cm Upper Lip Bite Test Class: I Cardiovascular Rhythm: Regular Rate: Normal Cardiovascular Assessment: cardiovascular normal Functional Capacity: >4 METS Pulmonary Pulmonary Assessment: Clear General / Constitutional Constitutional Assessment: Obese General State of Health:: healthy appearing and calm Neurological Normal Dental Normal ASSESSMENT / PLAN ANESTHESIA PLAN ASA: 2 - Emergent Anesthesia Plan: general Emergency exception, Consent implied due to medical emergency and inability to obtain timely consentfrom the patient or an alternative decision maker. Risks/Benefits/Alternatives of Blood transfusion discussed with patient / legal guardian, including an opportunity to ask questions and/or decline some or all transfusion therapies. The patient / legalguardian consented to the use of all blood products, as deemed medically necessary Approval to Proceed: approved for anesthesia Emergency Exception: Emergent transfer to anesthesia care documented in this encounter Miscellaneous Notes Addendum Note - Alfonso Bonner CRNA RBrittaneyNBrittaney - 07/14/2019 1:05 PM STUFFING MACHINE OPERATOR Addendum created 07/14/19 1305 by Alfonso Bonner CRNA, R.NBrittaney Care Path modified FING MACHINE OPERATOR Addendum Note - Alfonso Bonner CRNA RRoverto - 04/18/2019 8:34 AM CDT Addendum created 04/18/19 0834 by Alfonso Bonner CRNA, R.NBrittaney Care Path modified, Intraprocedure Blocks edited, LDA updated via procedure documentation, Sign clinical note Addendum Note - Alfonso Schmitz M.D., Reta - 04/14/2019 5:32 AM CDT Addendum created 04/14/19 0532 by Alfonso Schmitz M.D., Reta Sign clinical note documented in this encounter Plan of Treatment Scheduled Procedures Name Priority Associated Diagnoses Date/Time COLONOSCOPY Diarrhea documented as of this encounter Procedures Procedure Name Priority Date/Time Associated Comments Diagnosis LDA ANE ENDOTRACHEAL Routine 04/12/2019 3:54 PM R esults for this AIRWAY CDT procedure are i n the results section. documented in this encounter Results LDA ANE ENDOTRACHEAL AIRWAY (04/12/2019 3:54 PM CDT) Narrative Alfonso Bonner CRNA, R.N. - 2018 3:54 PM CDT Alfonso Bonner CRNA, R.N. ? 04/18/2019 ??8:33 AM Airway Date/Time: 04/12/2019 10:07 AM Performed by: Alfonso Bonner CRNA, R.N. Authorized by: Alfonso Schmitz M. D., Reta Patient location during procedure: OR / Procedure Area PROCEDURE DETAILS: Mask difficulty assessment: not attempte d Final airway type: video laryngoscope Laryngeal Manipulation: no ?? Final best view of glottic structures - Cormack/Lehane Score: grade 2A ETT location: oral VL device: storz CMAC Storz CMAC blade size: D - adult Adult tube size: 7 Adult ETT distance at teeth/gum: 21 Oral tube type: standard ETT Cuffed: yes Number of attempt to successful placemen t: 1 Airway confirmation: bilateral breath so unds, positive ETCO2 and bilateral chest rise Other previous techniques attempted: non e CONSENT Consent obtained: none - emergent situat ion PRE PROCEDURE DETAILS: Pre evaluation for airway management: pr ocedure Urgency: elective Preop assessment of probable difficulty: questionable / suspicious difficult airway Preoxygenation: bag valve mask SEDATION / ANESTHESIA Anesthesia method: anesthesia POST PROCEDURE DETAILS: ? Procedure outcome: successful ?? Airway event: no complications Alfonso Schmitz M.D., Reta ANESTHESIA ORDERABLES documented in this encounter Visit Diagnoses Not on filedocumented in this encounter Administered Medications Inactive Administered Medications - up to 3 most recent administrations Medication Order MAR Action Action Date Dose Rate Site azithromycin 500 mg in NaCl 0.9% New Bag 04/12/2019 10:52 AM CDT 5 00 mg IVPB (ZITHROMAX) 500 mg, intravenous, at 255 mL/hr, Administer over 60 Minutes, Once, On Wed04/12/19 at 1045, For 1 dose, Indications: Prophylaxis, surgical ceFAZolin injection (ANCEF) Given 04/12/2019 10:10 AM CDT 3 g As needed, Starting on Wed04/12/19 at 1010, Anesthesia Intra-op dexamethasone injection (DECADRON) Given 04/12/2019 10:15 AM CDT 8 mg As needed, Starting on Wed04/12/19 at 1015, Anesthesia Intra-op HYDROmorphone injection (DILAUDID) Given 04/12/2019 10:22 AM CDT 0.5 mg As needed, Starting on Wed04/12/19 at 1012, Anesthesia Intra-op Given 04/12/2019 10:12 AM CDT 0.5 mg ketorolac injection (TORADOL) Given 04/12/2019 10:39 AM CDT 30 mg As needed, Starting on Wed04/12/19 at 1039, Anesthesia Intra-op lactated ringers New Bag 04/12/2019 10:53 AM CDT intravenous, Continuous Infusion: Per Instructions PRN, Starting on Wed04/12/19 at 1000, Anesthesia Intra-op New Bag 04/12/2019 10:00 AM CDT ondansetron (PF) injection (ZOFRAN) Given 04/12/2019 10:15 AM CDT 4 mg As needed, Starting on Wed04/12/19 at 1015, Anesthesia Intra-op oxytocin 60 bradford-units/mL in New Bag 04/12/2019 10:10 20 mill i-units/min 20 mL/hr NaCl 0.9% 500 mL infusion AM CDT (PITOCIN) Continuous Infusion: Per Instructions PRN, Starting on Wed04/12/19 at 1010, Anesthesia Intra-op propofol injection (DIPRIVAN) Given 04/12/2019 10:06 AM CDT 250 mg As needed, Starting on Wed04/12/19 at 1006, Anesthesia Intra-op succinylcholine (PF) injection (ANECTINE ) Given 04/12/2019 10:06 AM CDT 160 mg As needed, Starting on Wed04/12/19 at 1006, Anesthesia Intra-op documented in this encounter Additional Health Concerns Assessment Noted Time PHQ-9 Depression Total Score: 7 04/07/2017 9:39 AM CDT documented as of this encounter Care Teams Pancake Professional Relationship Specialty Start Date End Date Blaire Bundy P.A.-C. PCP - General 02/04/17 04/26/19 documented as of this encounter
--- OUTSIDE RECORDS SUMMARY | 2022-06-29 09:27 | XMS_ITS | Encounter Summary ---
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 Magnesium, labs and CT scan. Crash cart in room at 1312 and pacer patches applied to pt. Pttaken to CT scan at 1325 with respiratory, OB MD and 3 nursing staff. Pt feeling better at time of CT scan. Fundus remained firm, with small to scant bleeding throughout. documented in this encounter ED Notes Berny Garcia M.D. - 04/12/2019 9:45 AM CDT SUBJECTIVE CHIEF COMPLAINT/REASON FOR VISIT Abdominal Pain (pt brought in by ambulance with abd pain/contractions. pt states she has nexplanon in her arm and had no idea she was ) HISTORY OF PRESENT ILLNESS Patient is a 33-year-old female 3 para 2 he was unaware of current . She had Nexplanon placed in June and this morning developed cramping lower abdominal pain with some slight vaginal spotting as well. She denies any recent illnesses and no dysuria or frequency. No fever or chills, and denies . She was transferred in [facility] ambulance having contractions last approximately 1 minute every minute and a half. Upon arrival to the ED bedside ultrasound was performed showing appears to be a full-term infant with heart tones in the 130-140's. Pelvic exam showed full dilatation of the cervix and a bulging bag jones. OB was consulted and she was immediately taken to later delivery floor. REVIEW OF SYSTEMS Constitutional: Negative for chills and fever. HENT: Negative. Gastrointestinal: Positive for abdominal pain. Negative for constipation, diarrhea, nausea and vomiting. Genitourinary: Negative for dysuria and flank pain. Musculoskeletal: Negative for back pain and extremity pain. Skin: Negative. Hematological: Negative. Psychiatric/Behavioral: Negative. OBJECTIVE Initial Vitals [04/12/19 0943] Temp Pulse Heart Rate Resp BP SpO2 -- -- -- -- -- -- Pain Score 10 - Worst possible pain PHYSICAL EXAMINATION Constitutional: She appears not lethargic. She appears distressed (Intermittently with contraction). HENT: Head: Normocephalic and atraumatic. Mouth/Throat: Oropharynx is clear and moist. Neck: Normal range of motion. Neck supple. Cardiovascular: Normal rate, regular rhythm, normal heart sounds and intact distal pulses. Pulmonary/Chest: Effort normal and breath sounds normal. Abdominal: Normal appearance. With patient being obese but obviously palpable uterus with contractions every minute and a half. Uterine size was not measure but appears consistent with full term and bedside ultrasound wasperformed quickly showing viable heart tones Genitourinary: Genitourinary Comments: Complete dilatation of the cervix with bulging bag of water. Musculoskeletal: Normal range of motion. Neurological: She is alert and oriented to person, place, and time. She has normal strength. Normal speech. Skin: Skin is warm, dry and normal color. She is not diaphoretic. Psychiatric: She has a normal mood and affect. Her behavior is normal. Nursing note and vitals reviewed. ASSESSMENT/PLAN Impression and Plan Patient presents with no care and on known and precipitous labor. She is being transferred to the Labor and delivery [facility] and accepted by .. Final Diagnoses: as of Apr 12 945 Precipitate Labor (HCC) Berny Garcia M.D. 04/12/19 0949 documented in this encounter Miscellaneous Notes Note - Olivia Stark R.N. - 04/15/2019 8:55 AM CDT This note was copied from a baby's chart. SUBJECTIVE Girl Puneet Clayton, at 3 days old of age, was seen for a Consultation. OBJECTIVE Delivery Details: Risk Factors: Obesity No Care Asthma Obstetric Procedures-This : None Labor Complications: Persistent Category 2;Precipitous Labor <3 Hours Delivery Type: , Low Transverse [place] Weight: 3930 g 1 Minute 5 Minute 10 Minute Totals: 8 9 Maternal Breast Assessment Soft, comfortable, no change. Infant Input: Taking in 60 ml of similac formula via Lianne bottle every 2-3 hours, one 5 hour span last pm. Infant Output: 7 voids/24 hours, 4 stools/24 hours, Stool Amount: Large Stool Appearance: Meconium Stool Color: Brown weight: 3930 g Current weight: Weight: 3912 g Percent of weight change since : 0% Weight change since previous weight: Weight Change (gm) : -28 Pct Wt Change: -0.45 % ASSESSMENT/PLAN: Continue to bottle feed formula every 2-3 hours or sooner with cues, gradually increase volumes. Mom planning on switching to Similac Total Comfort, prior child did well with that formula. Paced bottle feeding encouraged. Planning on discharging home today. Ice packs given, engorgement care reviewed. Plans on using hand pump to help with engorgement phase if needed and will give babybreastmilk via bottle. Reviewed storage of milk, magnet given. Discussed administration/prep for formula/breastmilk. Follow Up: follow up plan: Return to [facility] class Tuesday 04/17 for weight check. Olivia Stark R.N. [facility] - Harleen Josue D.O. - 04/15/2019 8:20 AM CDT The patient presented to the hospital 04/12/2019 for abdominal pain and subsequently found to be in labor with an undiagnosed . She had a Nexplanon implanted throughout the that was removed before discharge. heart tones category II tracing at complete cervical dilation. SROM oc curred with thick meconium. Station was +1, with asynclitism. heart rate descended into the 80's. The patient was consented for operative vaginal delivery, and luikhart forceps were applied but would not articulate due to the asynclitism. Therefore, they were removed and a emergent performed. Later that day Dr. Vaughn was called to the patient's room at 1:30pm to assess Ms. Clayton's condition. She had arrived at her room, was up to the chair, and had acutely altered mental status with diminished responsiveness and was found to be hypoxic to the mid-80's. When she arrived, she had been placed on 10L oxygen via non rebreather mask. She was responsive by that point, denied abdominal pain, chest pain, shortness of breath, or active vaginal bleeding. At that time, her heart rate was normal, BP was hypertensive (165/110) with labile and non reproducible pressures which were intermittently hypotensive (80/30) with the forearm cuff secondary to habitus. RR was 18. ?? CT PE and CT A/P were performed. The CT PE did not demonstrate signs of acute mainstem PE. The CT Abdomen demonstrated clot adjacent to the uterus, without active extravasation. This finding could be anticipated as the gutters were not cleared during delivery due to habitus. She was placed on monitor technician. She was tachycardic in the 110s-130s. It was noted she would have 20-30 asymptomatic PVCs in an hour. Lungs were clear. No murmur noted. Echocardiogram was normal without evidence of cardiomyopathy or acute right heart strain. The morning of 04/13/2019 her hemoglobin was noted to be 7.9. She was transfused two units of PRBCs.Tachycardia remained with normal pulse ox. She continued to be asymptomatic and was able to ambulate, eat, and urinate without difficulty. Her hemoglobin stabilized from 8.2 then 8.6 on 04/14/2019. Reviewed the case with hospitalist service regarding the multiple PVCs and tachycardia. No evidence of PE, active bleeding, fluid overload, cardiomyopathy, electrolyte imbalance. Considered possibly due to anemia though not low enough to transfuse again. Since she was asymptomatic she was given two doses of IV iron. Would then have her follow up with family practice after discharge. Aquacel bandage was removed the day of discharge. Bruising around the entire incision about 2 cm above and below. She had an area in the superior midline above the bandage that was noted to have small blisters. This was noted the day before and has not worsened. An odor was noted with bandage removal.It was difficult to assess erythema due to bruising. Decided to give a dose of Rocephin in the hospital and home with Bactrim for possible infection. Due to large pannus discussed with patient the importance of incision care. Note - Hoda Coker R.N., I.MacCBrittaneyLBrittaneyC. - 04/14/2019 10:30 AM CDT This note was copied from a baby's chart. SUBJECTIVE Girl Puneet Clayton, at 2 days old of age, was seen for a Consultation on [facility] rounds. OBJECTIVE Delivery Details: Risk Factors: Obesity No Care Asthma Obstetric Procedures-This : None Labor Complications: Persistent Category 2;Precipitous Labor <3 Hours Delivery Type: , Low Transverse Weight: 3930 g 1 Minute 5 Minute 10 Minute Totals: 8 9 Maternal Breast Assessment Mom is interested in expressing some of her breastmilk and adding it to the bottles for feeding baby when she experiences fullness at home after discharge. She nursed her last child for a few days before introducing formula, used Total Comfort Similac and he was much happier than her first fully formula fed child. She is not interested in directly latching at this time, primarily due to the oxycodone she is taking for pain control. Discussed pumping first and then taking medication for timing, if needed for comfort. Hand pump demonstrated for use as needed. . . Assessment [place] in color, transcutaneous bilirubin at 44 hours of age was less than 1, in the low risk zone. Baby is more distressed today with gas pains, instructed mom on use of Lianne bottle after the feeding even empty her to have enough sucking time at the feeding to adjust her gas pattern for comfort. Sometimes the pacifier is not satisfying her. Infant Input: 10 feedings/24 hours, with volume of ready to feed formula not at 60 ml. Output: 4 voids/24 hours, 3 stools/24 hours, Stool Amount: Large Stool Appearance: Transition Stool Color: Black, Brown weight: 3930 g Current weight: Weight: 3940 g Percent of weight change since : 0% Weight change since previous weight: Weight Change (gm) : 100 Pct Wt Change: 0.25 % ASSESSMENT/PLAN Baby is voiding and stooling exceeding expectations, she is bothered today with feeling gas moving. Using Lianne bottle and instructed parents on how to use it for additional sucking time around the feedings for non-nutritive sucking as needed, especially when the pacifier is refused by the baby. Mom is open to using her breastmilk for the baby, experience in the past with formula intolerance and would like the baby to have some breastmilk without directly nursing. Hand pump instructions given. Follow Up: follow up plan: consult daily on [facility] rounds until discharge. Hoda Coker R.N., I.B.C.L.C. Note - Olivia Stark R.N. - 04/13/2019 8:30 AM CDT This note was copied from a baby's chart. SUBJECTIVE Girl Puneet Clayton, at 1 days old of age, was seen for a Consultation. OBJECTIVE Delivery Details: Risk Factors: Obesity No Care Asthma Obstetric Procedures-This : None Labor Complications: Persistent Category 2;Precipitous Labor <3 Hours Delivery Type: , Low Transverse [place] Weight: 3930 g 1 Minute 5 Minute 10 Minute Totals: 8 9 Infant Input: Similac formula via Lianne bottle, tolerating well. Taking up to 40-60 ml per feeding. Infant Output: 2 voids/24 hours, 3 stools/24 hours, Stool Amount: Large Stool Appearance: Meconium Stool Color: Black, Brown weight: 3930 g Current weight: Weight: 3840 g Percent of weight change since : -2% Weight change since previous weight: Weight Change (gm) : -90 Pct Wt Change: -2.29 % ASSESSMENT/PLAN: Encouraged feeding on cue, every 2- 3 hours. Baby taking in larger volumes, not spitting up, and tolerating well. Encouraged over the next few days gradually increase volumes to 2-2.5 oz. +. Discussed paced bottle feeding. Reviewed formula prep/administration, encouraged mixing powderformula with distilled water at home. Follow Up: follow up plan: prn/ am rounds Olivia Stark R.N. L&D Delivery Note - Xin Vaughn M.D. - 04/12/2019 11:16 AM CDT OB Delivery Note 04/12/2019 Puneet Clayton 33 y.o. Yasir, Girl Puneet [[phone]] Delivery Providers Delivering clinician: Xin Vaughn M.D. Provider Role Delivery Nurse Nursery Nurse Director Of Database Marketing Review the Delivery Report for details. GA: Unknown GP: GBS: unknown Risk Factors: Obesity No Care Asthma Other Risk Factors, if any: None Obstetric Procedures - This : None Labor Complications: Persistent Category 2;Precipitous Labor <3 Hours EBL: None Delivery Type: , Low Transverse ROM to Delivery Time: rupture date, rupture time, delivery date, or delivery time have not been documented Sex: Female Weight: 3.93 kg 1 Minute 5 Minute 10 Minute Totals: 8 9 Details Pre-Op Diagnosis: 1. Intrauterine at Unknown Post-Op Diagnosis: Primary delivery for intolerance of labor Indications: Intolerance of Labor None Procedure: SECTION Anesthesia: OR Medications: Intra-op Medications None Specimens: ID Type Source Tests Collected by Time A : placenta Tissue Placenta PATHOLOGY SERVICES Xin Vaughn M.D. 04/12/2019 1020 Drains: Findings: Normal uterus, tubes, and ovaries. Complications none Informed Consent: Unable to be obtained secondary to emergent procedure Procedure Details: The patient presented with an undiagnosed and category II tracing at complete cervical dilation. SROM occurred with thick meconium. Station was +1, with asynclitism. heart rate descended into the 80's. The patient was consented for operative vaginal delivery, and luikhart forceps were applied but would not articulate due to the asynclitism. Therefore, they were removed and a emergent decided. The patient was taken to the operating room. Under general anesthetic, the abdomen was prepped and draped in sterile fashion. A Pfannenstiel skin incision was made. Dissection was carried through the skin, subcutaneous, and fascial layers. The rectus muscles were split in the midline a nd the peritoneal cavity was entered without difficulty. A bladder flap was developed with sharp andblunt dissection. A low transverse uterine incision was made and extended bilaterally. The infant was delivered from the Vertex Left Occiput Transverse position. See scores above. Adilute solution of oxytocin was infused, and the uterus was then massaged to allow it to contract down around the placenta and the placenta was delivered. The placenta was inspected and found to be intact with a three vessel cord. The uterus was cleared of all clots and debris. The uterine incision was inspected. No extensions were noted, and the uterus was closed with a (double) layer closure using #1 Vicryl suture. The uterine incision and bladder flap were noted to be hemostatic. The gutters wereirrigated and cleared of all clots and debris. The fascia was reapproximated with a 0 Loop PDS suture. The subcutaneous area was irrigated, noted to be hemostatic, and was closed with 2-0 Vicryl. The skin was closed with 4-0 Vicryl. Nuchal cord present at delivery? Yes, there was a nuchal cord and it was clinically undetermined if it was present on admission. Accurate final count? yes X ray was performed for emergent indications The patient was brought to the recovery room with stable vital signs. The patient is a candidate for TOLAC in the future. Xin Vaughn M.D. documented in this encounter Plan of Treatment Pending Results Name Type Priority Associated Diagnoses Date/Ti me Prepare Red Blood Blood Bank Routine 04/12/2019 9:42 AM CDT Cells, 1 Units Prepare Red Blood Blood Bank Routine 04/12/2019 9:42 AM CDT Cells, 1 Units Scheduled Orders Name Type Priority Associated Diagnoses Order S chedule ECG 12 Lead ECG Routine Once for 1 Occu rrences starting 2018 until 04/12/2019 ECG 12 Lead with rhythm ECG Routine 0600 for 1 Occurrences strip starting 2018 until 04/13/2019 Scheduled Procedures Name Priority Associated Diagnoses Date/Time COLONOSCOPY Diarrhea Scheduled Referrals Name Type Priority Associated Order Schedule Diagnoses Obstetrics and Outpatient Referral Routine Section Ex pected: Gynecology Post Op Delivery ([facility]) 019 (clinic) (Approximate), Expires: 04/15/2022 documented as of this encounter Procedures Procedure Name Priority Date/Time Associated Comments Diagnosis CBC WITHOUT Timed 04/14/2019 11:00 Results for DIFFERENTIAL, B AM CDT this procedu re are in the results section. CBC WITHOUT Routine 04/14/2019 6:35 Results for DIFFERENTIAL, B AM CDT this procedu re are in the results section. CBC WITH Routine 04/13/2019 9:43 Results for DIFFERENTIAL, B PM CDT this procedu re are in the results section. SYPHILIS TOTAL AB W/ Timed 04/13/2019 5:05 Resu lts for REFLEX S PM CDT this procedure are in the results section. RUBELLA ANTIBODIES, Timed 04/13/2019 5:05 Resul ts for IGG PM CDT this procedure are in the results section. CBC WITH Timed 04/13/2019 5:05 Results for DIFFERENTIAL, B PM CDT this procedu re are in the results section. COMPREHENSIVE Timed 04/13/2019 5:05 Results for METABOLIC PANEL, S/P PM CDT this pr ocedure are in the results section. TRANSFUSE RED BLOOD Routine 04/13/2019 10:35 CELLS AM CDT TRANSFUSE RED BLOOD Routine 04/13/2019 7:40 CELLS AM CDT CBC WITHOUT Routine 04/13/2019 6:35 Results for DIFFERENTIAL, B AM CDT this procedu re are in the results section. COMPREHENSIVE Routine 04/13/2019 6:35 Results for METABOLIC PANEL, S/P AM CDT this pr ocedure are in the results section. CBC WITHOUT Routine 04/12/2019 11:36 Results for DIFFERENTIAL, B PM CDT this procedu re are in the results section. PHOSPHORUS Routine 04/12/2019 11:36 Results for (INORGANIC), S PM CDT this procedur e are in the results section. MAGNESIUM, S Routine 04/12/2019 11:36 Results for PM CDT this procedure are in the results section. COMPREHENSIVE Routine 04/12/2019 11:36 Results fo r METABOLIC PANEL, S/P PM CDT this pr ocedure are in the results section. US LOWER EXTREMITY RAD - Semiurgent 04/12/2019 9:51 Re sults for VEINS BILATERAL (Fast; most ED PM CDT this proce dure patients; some are in the inpatients) results section. CBC WITHOUT Routine 04/12/2019 8:03 Results for DIFFERENTIAL, B PM CDT this procedu re are in the results section. DRUG SCREEN URINE Routine 04/12/2019 3:57 Results for PM CDT this procedure are in the results section. PROTEIN/CREATININE Routine 04/12/2019 3:57 Result s for RATIO, RANDOM, URINE PM CDT this pr ocedure are in the results section. HIV-1 P24 AG, Timed 04/12/2019 3:48 Results for HIV-1/2 AB PM CDT this procedure ,P are in the results section. CBC WITHOUT Timed 04/12/2019 3:48 Results for DIFFERENTIAL, B PM CDT this procedu re are in the results section. (TTE) 2D ECHO STAT 04/12/2019 3:38 Results for DOPPLER COLOR PM CDT this procedure are in the results section. CT CHEST ANGIOGRAM RAD - Emergent 04/12/2019 1:53 Resu lts for AND PULMONARY (Fastest; for the PM CDT this proc edure ARTERIES WITH IV most critically are in t he CONTRAST ill patients) results section. CT ABDOMEN PELVIS RAD - Emergent 04/12/2019 1:53 Resul ts for WITH IV CONTRAST (Fastest; for the PM CDT this p rocedure most critically are in the ill patients) results section. CBC WITH STAT 04/12/2019 1:19 Results for DIFFERENTIAL, B PM CDT this procedu re are in the results section. LACTATE, B/P STAT 04/12/2019 1:19 Results for PM CDT this procedure are in the results section. COMPREHENSIVE STAT 04/12/2019 1:19 Results for METABOLIC PANEL, S/P PM CDT this pr ocedure are in the results section. PROTHROMBIN TIME STAT 04/12/2019 1:18 Results for (PT), P PM CDT this procedure are in the results section. FIBRINOGEN, P STAT 04/12/2019 1:18 Results for PM CDT this procedure are in the results section. DX ABDOMEN PORTABLE RAD - Routine 04/12/2019 10:51 Precipitate Labo r Results for ANTERIOR POSTERIOR 1 (most inpatients AM CDT (HCC) thi s procedure VIEW and all are in the outpatients) results section. PATHOLOGY SERVICES Routine 04/12/2019 10:20 Resul ts for AM CDT this procedure are in the results section. SECTION 04/12/2019 9:48 AM CDT TESTING LOCATION Routine 04/12/2019 9:42 Results for AM CDT this procedure are in the results section. PREPARE RED BLOOD Routine 04/12/2019 9:42 CELLS AM CDT PREPARE RED BLOOD Routine 04/12/2019 9:42 CELLS AM CDT TYPE AND SCREEN Routine 04/12/2019 9:42 Results f or AM CDT this procedure are in the results section. HBC TOTAL AB, SERUM Routine 04/12/2019 9:41 Resul ts for AM CDT this procedure are in the results section. HBS ANTIBODY, SERUM Routine 04/12/2019 9:41 Resul ts for AM CDT this procedure are in the results section. HEPATITIS B SURFACE Routine 04/12/2019 9:41 Resul ts for ANTIGEN AM CDT this procedure are in the results section. documented in this encounter Results (ABNORMAL) CBC without Differential (04/14/2019 11:00 AM CDT) [facility] gist Method Time Signature Hemoglobin 8.6 (L) 11.6 - 04/14/2019 15.0 g/dL 11:31 AM CDT Hematocrit 26.9 (L) 35.5 - 04/14/2019 44.9 % 11:31 AM CDT Erythrocytes 2.98 (L) 3.92 - 04/14/2019 5.13 11:31 AM CDT x10(12)/L MCV 90.3 78.2 - 04/14/2019 97.9 fL 11:31 AM CDT RBC Distrib Width 15.0 12.2 - 04/14/2019 16.1 % 11:31 AM CDT Platelet Count 178 157 - 371 04/14/2019 x10(9)/L 11:31 AM CDT Leukocytes 9.3 3.4 - 9.6 04/14/2019 x10(9)/L 11:31 AM CDT Specimen Anatomical Collection Method Collection Time Receive d Time (Source) Location / / Volume Laterality Blood (Blood, 04/14/2019 11:00 04/14/2019 Venous) AM CDT 11:21 AM CDT Harleen Josue D.O. LAB BLOOD ADD-ON Performing Organization Address City/State/ZIP Code Phon e Number [facility] [address] [address] LAB (ABNORMAL) CBC without Differential (04/14/2019 6:35 AM CDT) [facility] Method Time Signature Hemoglobin 8.2 (L) 11.6 - 04/14/2019 15.0 g/dL 6:51 AM CDT Hematocrit 25.7 (L) 35.5 - 04/14/2019 44.9 % 6:51 AM CDT Erythrocytes 2.87 (L) 3.92 - 04/14/2019 5.13 6:51 AM CDT x10(12)/L MCV 89.5 78.2 - 04/14/2019 97.9 fL 6:51 AM CDT RBC Distrib Width 15.0 12.2 - 04/14/2019 16.1 % 6:51 AM CDT Platelet Count 165 157 - 371 04/14/2019 x10(9)/L 6:51 AM CDT Leukocytes 9.2 3.4 - 9.6 04/14/2019 x10(9)/L 6:51 AM CDT Specimen Anatomical Collection Method Collection Time Receive d Time (Source) Location / / Volume Laterality Blood (Blood, 04/14/2019 6:35 AM 04/14/20 19 6:46 Venous) CDT AM CDT Harleen Josue D.O. LAB BLOOD ADD-ON Performing Organization Address City/State/ZIP Code Phon e Number [facility] [address] [place] [address] [place] LAB (ABNORMAL) CBC with Differential, Blood (04/13/2019 9:43 PM CDT) [facility] Method Time Signature Hemoglobin 8.9 (L) 11.6 - 04/13/2019 15.0 g/dL 9:55 PM CDT Hematocrit 27.4 (L) 35.5 - 04/13/2019 44.9 % 9:55 PM CDT Erythrocytes 3.08 (L) 3.92 - 04/13/2019 5.13 9:55 PM CDT x10(12)/L MCV 89.0 78.2 - 04/13/2019 97.9 fL 9:55 PM CDT RBC Distrib Width 14.9 12.2 - 04/13/2019 16.1 % 9:55 PM CDT Platelet Count 179 157 - 371 04/13/2019 x10(9)/L 9:55 PM CDT Leukocytes 10.3 (H) 3.4 - 9.6 04/13/2019 x10(9)/L 9:55 PM CDT Neutrophils 7.79 (H) 1.56 - 04/13/2019 6.45 9:55 PM CDT x10(9)/L Lymphocytes 1.81 0.95 - 04/13/2019 3.07 9:55 PM CDT x10(9)/L Monocytes 0.56 0.26 - 04/13/2019 0.81 9:55 PM CDT x10(9)/L Eosinophils 0.07 0.03 - 04/13/2019 0.48 9:55 PM CDT x10(9)/L Basophils 0.02 0.01 - 04/13/2019 0.08 9:55 PM CDT x10(9)/L Specimen Anatomical Collection Method Collection Time Receive d Time (Source) Location / / Volume Laterality Blood (Blood, 04/13/2019 9:43 PM 04/13/20 9:52 Venous) CDT PM CDT Harleen Josue D.O. LAB BLOOD ADD-ON Performing Organization Address City/State/ZIP Code Phon e Number [facility] [address] [place] [address] [place] [address] [place] [facility] Rubella Antibodies, IgG (04/13/2019 5:05 PM CDT) P athologist Signature Rubella Ab, Positive 04/15/2019 IgG, S 10:34 AM CDT Comment: Results suggest response to immunization or prior exposure to the virus. ----REFERENCE VALUE---- Vaccinated: Positive (>=1.0 AI) Unvaccinated: Negative (<=0.7 AI) Rubella IgG Antibody Index 1.0 04/15/2019 10 :34 AM CDT Specimen Anatomical Collection Method Collection Time Receive d Time (Source) Location / / Volume Laterality Blood (Blood, 04/13/2019 5:05 PM 04/15/20 19 Venous) CDT 10:34 AM CDT Harleen Josue D.O. LAB MICROBIOLOGY - BLOOD ORD ERABLES Performing Organization Address City/State/ZIP Code Phon e Number [facility] [address] [facility] [address] [facility] Syphilis IgG Antibody with Reflex (04/13/2019 5:05 PM CDT) Patholo gist Method Time Signature Syphilis Nonreactive Nonreactive 04/15/2019 Total Ab w/ 10:34 AM CDT Reflex Comment: No serologic evidence of infection with T. pallidum (syphilis). ??Repeat testing may be cons idered in patients with suspected acute or primary syphilis in 2-4 weeks. Specimen Anatomical Collection Method Collection Time Receive d Time (Source) Location / / Volume Laterality Blood (Blood, 04/13/2019 5:05 PM 04/15/20 19 Venous) CDT 10:34 AM CDT Harleen Josue D.O. LAB BLOOD ADD-ON Performing Organization Address City/State/ZIP Code Phon e Number [facility] [address] [facility] [address] [facility] (ABNORMAL) CMP (Comprehensive Metabolic Panel) (04/13/2019 5:05 PM CDT) P athologist Signature Potassium, S 4.7 3.6 - 5.2 04/13/2019 mmol/L 5:55 PM CDT Sodium, S 139 135 - 145 04/13/2019 mmol/L 5:55 PM CDT Chloride, S 104 98 - 107 04/13/2019 mmol/L 5:55 PM CDT Bicarbonate, S 26 22 - 29 04/13/2019 mmol/L 5:55 PM CDT Anion Gap 9 7 - 15 04/13/2019 5:55 PM CDT BUN (Blood Urea 13 6 - 21 04/13/2019 Nitrogen), S mg/dL 5:55 PM CDT Creatinine 0.71 0.59 - 04/13/2019 1.04 mg/dL 5:55 PM CDT eGFR-Non >90 >=60 04/13/2019 Black/ mL/min/BSA 5:55 PM CDT Citizen Of [place] Comment: ----ADDITIONAL INFORMATION---- Estimated GFR calculated using the 2009 CKD_EPI creatinine equation. eGFR-Black/ >90 >=60 mL/min/BSA 2018 5:55 PM CDT Comment: ----ADDITIONAL INFORMATION---- Estimated GFR calculated using the 2009 CKD_EPI creatinine equation. Calcium, Total, S 8.5 (L) 8.6 - 10.0 mg/dL 04/13/2019 5:55 PM CDT Glucose, S 91 70 - 140 mg/dL 04/13/2019 5:55 PM CDT Protein, Total, S 4.9 (L) 6.3 - 7.9 g/dL 04/13/2019 5:55 P M CDT Albumin, S 3.0 (L) 3.5 - 5.0 g/dL 04/13/2019 5:55 PM CDT Aspartate Aminotransferase 21 8 - 43 U/L 04/13/2019 5 :55 PM CDT (AST), S Alkaline Phosphatase, S 116 (H) 35 - 104 U/L 04/13/2019 5: 55 PM CDT Alanine Aminotransferase (ALT), 8 7 - 45 U/L 019 5:55 PM CDT S Bilirubin, Total, S 0.2 <=1.2 mg/dL 04/13/2019 5:55 PM CDT Specimen Anatomical Collection Method Collection Time Receive d Time (Source) Location / / Volume Laterality Blood (Blood, 04/13/2019 5:05 PM 04/13/20 19 5:11 Venous) CDT PM CDT Harleen Josue D.O. LAB BLOOD ADD-ON Performing Organization Address City/State/ZIP Code Phon e Number [facility] [address] [facility] [place] [address] [place] [facility] (ABNORMAL) CBC with Differential, Blood (04/13/2019 5:05 PM CDT) [facility] gist Method Time Signature Hemoglobin 9.1 (L) 11.6 - 04/13/2019 15.0 g/dL 5:13 PM CDT Hematocrit 28.3 (L) 35.5 - 04/13/2019 44.9 % 5:13 PM CDT Erythrocytes 3.20 (L) 3.92 - 04/13/2019 5.13 5:13 PM CDT x10(12)/L MCV 88.4 78.2 - 04/13/2019 97.9 fL 5:13 PM CDT RBC Distrib Width 15.0 12.2 - 04/13/2019 16.1 % 5:13 PM CDT Platelet Count 181 157 - 371 04/13/2019 x10(9)/L 5:13 PM CDT Leukocytes 10.2 (H) 3.4 - 9.6 04/13/2019 x10(9)/L 5:13 PM CDT Neutrophils 7.74 (H) 1.56 - 04/13/2019 6.45 5:13 PM CDT x10(9)/L Lymphocytes 1.77 0.95 - 04/13/2019 3.07 5:13 PM CDT x10(9)/L Monocytes 0.64 0.26 - 04/13/2019 0.81 5:13 PM CDT x10(9)/L Eosinophils 0.02 (L) 0.03 - 04/13/2019 0.48 5:13 PM CDT x10(9)/L Basophils 0.01 0.01 - 04/13/2019 0.08 5:13 PM CDT x10(9)/L Specimen Anatomical Collection Method Collection Time Receive d Time (Source) Location / / Volume Laterality Blood (Blood, 04/13/2019 5:05 PM 04/13/20 19 5:11 Venous) CDT PM CDT Harleen Josue D.O. LAB BLOOD ADD-ON Performing Organization Address City/State/ZIP Code Phon e Number [facility] [address] [facility] [place] [address] [place] [facility] Transfuse Red Blood Cells (04/13/2019 12:21 PM CDT) Xin Vaughn M.D. BLOOD TRANSFUSION ORDERABLES Transfuse Red Blood Cells : , 2 Units (04/13/2019 12:21 PM CDT) Xin Vaughn M.D. BLOOD TRANSFUSION ORDERABLES Transfuse Red Blood Cells (04/13/2019 10:03 AM CDT) Xin Vaughn M.D. BLOOD TRANSFUSION ORDERABLES (ABNORMAL) CMP (Comprehensive Metabolic Panel) (04/13/2019 6:35 AM CDT) P athologist Signature Potassium, S 4.8 3.6 - 5.2 04/13/2019 mmol/L 7:14 AM CDT Sodium, S 138 135 - 145 04/13/2019 mmol/L 7:14 AM CDT Chloride, S 105 98 - 107 04/13/2019 mmol/L 7:14 AM CDT Bicarbonate, S 22 22 - 29 04/13/2019 mmol/L 7:14 AM CDT Anion Gap 11 7 - 15 04/13/2019 7:14 AM CDT BUN (Blood Urea 15 6 - 21 04/13/2019 Nitrogen), S mg/dL 7:14 AM CDT Creatinine 0.68 0.59 - 04/13/2019 1.04 mg/dL 7:14 AM CDT eGFR-Non >90 >=60 04/13/2019 Black/ mL/min/BSA 7:14 AM CDT Citizen Of [place] Comment: ----ADDITIONAL INFORMATION---- Estimated GFR calculated using the 2009 CKD_EPI creatinine equation. eGFR-Black/ >90 >=60 mL/min/BSA 2018 7:14 AM CDT Comment: ----ADDITIONAL INFORMATION---- Estimated GFR calculated using the 2009 CKD_EPI creatinine equation. Calcium, Total, S 8.5 (L) 8.6 - 10.0 mg/dL 04/13/2019 7:14 AM CDT Glucose, S 108 70 - 140 mg/dL 04/13/2019 7:14 AM CDT Protein, Total, S 4.6 (L) 6.3 - 7.9 g/dL 04/13/2019 7:14 A M CDT Albumin, S 2.6 (L) 3.5 - 5.0 g/dL 04/13/2019 7:14 AM CDT Aspartate Aminotransferase 20 8 - 43 U/L 04/13/2019 7 :14 AM CDT (AST), S Alkaline Phosphatase, S 117 (H) 35 - 104 U/L 04/13/2019 7: 14 AM CDT Alanine Aminotransferase (ALT), 8 7 - 45 U/L 019 7:14 AM CDT S Bilirubin, Total, S <0.2 <=1.2 mg/dL 04/13/2019 7:15 AM CDT Specimen Anatomical Collection Method Collection Time Receive d Time (Source) Location / / Volume Laterality Blood (Blood, 04/13/2019 6:35 AM 04/13/20 19 6:43 Venous) CDT AM CDT Xin Vaughn M.D. LAB BLOOD ADD-ON Performing Organization Address City/[facility]/ZIP Code Phon e Number [facility] [address] [place] [address] [place] [facility] (ABNORMAL) CBC without Differential (04/13/2019 6:35 AM CDT) Patholo gist Method Time Signature Hemoglobin 7.9 (L) 11.6 - 04/13/2019 15.0 g/dL 6:47 AM CDT Hematocrit 24.4 (L) 35.5 - 04/13/2019 44.9 % 6:47 AM CDT Erythrocytes 2.80 (L) 3.92 - 04/13/2019 5.13 6:47 AM CDT x10(12)/L MCV 87.1 78.2 - 04/13/2019 97.9 fL 6:47 AM CDT RBC Distrib Width 14.9 12.2 - 04/13/2019 16.1 % 6:47 AM CDT Platelet Count 200 157 - 371 04/13/2019 x10(9)/L 6:47 AM CDT Leukocytes 12.9 (H) 3.4 - 9.6 04/13/2019 x10(9)/L 6:47 AM CDT Specimen Anatomical Collection Method Collection Time Receive d Time (Source) Location / / Volume Laterality Blood (Blood, 04/13/2019 6:35 AM 04/13/20 19 6:43 Venous) CDT AM CDT Xin Vaughn M.D. LAB BLOOD ADD-ON Performing Organization Address City/[facility]/ZIP Code Phon e Number [facility] [place] [address] [place] [facility] Phosphorus Inorganic (04/12/2019 11:36 PM CDT) P athologist Signature Phosphorus 4.2 2.5 - 4.5 04/13/2019 (Inorganic), S mg/dL 1:07 AM CDT Specimen Anatomical Collection Method Collection Time Receive d Time (Source) Location / / Volume Laterality Blood (Blood, 04/12/2019 11:36 04/12/2019 Venous) PM CDT 11:40 PM CDT Xin Vaughn M.D. LAB BLOOD ADD-ON Performing Organization Address City/State/ZIP Code Phon e Number [place] [address] [address], [place] [address] [place] [facility] Magnesium (04/12/2019 11:36 PM CDT) P athologist Signature Magnesium, S 2.3 1.7 - 2.3 04/13/2019 mg/dL 12:30 AM CDT Specimen Anatomical Collection Method Collection Time Receive d Time (Source) Location / / Volume Laterality Blood (Blood, 04/12/2019 11:36 04/12/2019 Venous) PM CDT 11:40 PM CDT Xin Vaughn M.D. LAB BLOOD ADD-ON Performing Organization Address City/State/ZIP Code Phon e Number [facility], [place] [address] LAB (ABNORMAL) CMP (Comprehensive Metabolic Panel) (04/12/2019 11:36 PM CDT) Analysis Performed At Patho logist Time Signature Potassium, S 6.0 (CH) 3.6 - 5.2 04/13/2019 mmol/L 12:47 AM CDT Sodium, S 136 135 - 145 04/13/2019 mmol/L 12:30 AM CDT Chloride, S 104 98 - 107 04/13/2019 mmol/L 12:30 AM CDT Bicarbonate, S 20 (L) 22 - 29 04/13/2019 mmol/L 12:30 AM CDT Anion Gap 12 7 - 15 04/13/2019 12:30 AM CDT BUN (Blood Urea 20 6 - 21 04/13/2019 Nitrogen), S mg/dL 12:30 AM CDT Creatinine 0.81 0.59 - 04/13/2019 1.04 mg/dL 12:30 AM CDT eGFR-Non >90 >=60 04/13/2019 Black/ mL/min/BSA 12:30 AM CDT Citizen Of [place] Comment: ----ADDITIONAL INFORMATION---- Estimated GFR calculated using the 2009 CKD_EPI creatinine equation. eGFR-Black/ >90 >=60 mL/min/BSA 2018 12:30 AM CDT Comment: ----ADDITIONAL INFORMATION---- Estimated GFR calculated using the 2009 CKD_EPI creatinine equation. Calcium, Total, S 9.0 8.6 - 10.0 mg/dL 04/13/2019 12:3 0 AM CDT Glucose, S 134 70 - 140 mg/dL 04/13/2019 12:30 AM CDT Protein, Total, S 5.0 (L) 6.3 - 7.9 g/dL 04/13/2019 12:30 AM CDT Albumin, S 2.6 (L) 3.5 - 5.0 g/dL 04/13/2019 12:30 AM CDT Aspartate Aminotransferase 20 8 - 43 U/L 04/13/2019 1 2:30 AM CDT (AST), S Alkaline Phosphatase, S 132 (H) 35 - 104 U/L 04/13/2019 12 :30 AM CDT Alanine Aminotransferase 9 7 - 45 U/L 04/13/2019 12: 30 AM CDT (ALT), S Bilirubin, Total, S <0.2 <=1.2 mg/dL 04/13/2019 12:48 A M CDT Specimen Anatomical Collection Method Collection Time Receive d Time (Source) Location / / Volume Laterality Blood (Blood, 04/12/2019 11:36 04/12/2019 Venous) PM CDT 11:40 PM CDT Xin Vaughn M.D. LAB BLOOD ADD-ON Performing Organization Address City/State/ZIP Code Phon e Number [facility] [address] [facility] [place] [address] [place] [facility] (ABNORMAL) CBC without Differential (04/12/2019 11:36 PM CDT) [facility] Method Time Signature Hemoglobin 9.3 (L) 11.6 - 04/12/2019 15.0 g/dL 11:57 PM CDT Hematocrit 28.2 (L) 35.5 - 04/12/2019 44.9 % 11:57 PM CDT Erythrocytes 3.29 (L) 3.92 - 04/12/2019 5.13 11:57 PM CDT x10(12)/L MCV 85.7 78.2 - 04/12/2019 97.9 fL 11:57 PM CDT RBC Distrib Width 14.8 12.2 - 04/12/2019 16.1 % 11:57 PM CDT Platelet Count 213 157 - 371 04/12/2019 x10(9)/L 11:57 PM CDT Leukocytes 17.2 (H) 3.4 - 9.6 04/12/2019 x10(9)/L 11:57 PM CDT Specimen Anatomical Collection Method Collection Time Receive d Time (Source) Location / / Volume Laterality Blood (Blood, 04/12/2019 11:36 04/12/2019 Venous) PM CDT 11:40 PM CDT Xin Vaughn M.D. LAB BLOOD ADD-ON Performing Organization Address City/State/ZIP Code Phon e Number [facility] [address] [place] [address] [place] [facility] US Lower Extremity Veins Bilateral (04/12/2019 9:51 PM CDT) Anatomical Region Laterality Modality Lower Extremity, Ultrasound RST LOS, Ultrasound ARZ LOS, Ba ateral Ultrasound Ultrasound FLA LOS Specimen (Source) Anatomical Collection Method Collection Time Re ceived Time Location / / Volume Laterality 04/13/2019 6:12 AM CDT Impressions 04/13/2019 6:13 AM CDT 1. ??Negative for Acute DVT. Narrative 04/13/2019 6:13 AM CDT EXAM: US LOWER EXTREMITY VEINS BILATERAL Exam performed with color and spectral D oppler analysis. COMPARISON: None FINDINGS: Preliminary report generated b y virtual radiology. The common femoral, upper deep femoral, femoral and popliteal veins are widely patent bilaterally, without thrombus. Th e posterior tibial, peroneal, soleal and gastrocnemius veins were segmentally vis ualized bilaterally and are normal where seen. The great saphenous veins bilatera lly are patent and negative for thrombus. Procedure Note Devin Moran M.D. - 04/13/2019Forma tting of this note might be different from the original. EXAM: US LOWER EXTREMITY VEINS BILATERAL Exam performed with color and spectral D oppler analysis. COMPARISON: None FINDINGS: Preliminary report generated b y virtual radiology. The common femoral, upper deep femoral, femoral and popliteal veins are widely patent bilaterally, without thrombus. Th e posterior tibial, peroneal, soleal and gastrocnemius veins were segmentally vis ualized bilaterally and are normal where seen. The great saphenous veins bilatera lly are patent and negative for thrombus. IMPRESSION: 1. Negative for Acute DVT. Xin Vaughn M.D. IMG US PROCEDURES (ABNORMAL) CBC without Differential (04/12/2019 8:03 PM CDT) [facility] Method Time Signature Hemoglobin 9.6 (L) 11.6 - 04/12/2019 15.0 g/dL 8:29 PM CDT Hematocrit 29.1 (L) 35.5 - 04/12/2019 44.9 % 8:29 PM CDT Erythrocytes 3.32 (L) 3.92 - 04/12/2019 5.13 8:29 PM CDT x10(12)/L MCV 87.7 78.2 - 04/12/2019 97.9 fL 8:29 PM CDT RBC Distrib Width 14.7 12.2 - 04/12/2019 16.1 % 8:29 PM CDT Platelet Count 224 157 - 371 04/12/2019 x10(9)/L 8:29 PM CDT Leukocytes 17.2 (H) 3.4 - 9.6 04/12/2019 x10(9)/L 8:29 PM CDT Specimen Anatomical Collection Method Collection Time Receive d Time (Source) Location / / Volume Laterality Blood (Blood, 04/12/2019 8:03 PM 04/12/20 19 8:12 Venous) CDT PM CDT Xin Vaughn M.D. LAB BLOOD ADD-ON Performing Organization Address City/State/ZIP Code Phon e Number [facility] [address] [place] [address] [place] [facility] (ABNORMAL) Protein/Creatinine Ratio, Random, Urine (04/12/2019 3:57 PM CDT) [facility] Method Time Signature Protein, Total, 85 mg/dL 04/12/2019 Random, U 4:33 PM CDT Creatinine 134 mg/dL 04/12/2019 Concentration 4:33 PM CDT Protein/Creatinin 0.63 (H) <0.18 04/12/2019 e Ratio mg/mg 4:33 PM CDT Specimen Anatomical Collection Method Collection Time Receive d Time (Source) Location / / Volume Laterality Urine (Urine, 04/12/2019 3:57 PM 04/12/20 19 3:57 Catheter) CDT PM CDT Xin Vaughn M.D. LAB URINE ORDERABLES Performing Organization Address City/State/ZIP Code Phon e Number [facility] [address] [place] [address] [place] [facility] (ABNORMAL) Drug Screen Urine (04/12/2019 3:57 PM CDT) athologist Signature Amphetamines, Negative Negative 04/12/2019 U 4:20 PM CDT Comment: ----ADDITIONAL INFORMATION---- Clutch Specialist's Cutoff: 500 ng/mL Barbiturates, U Negative Negative 04/12/2019 4:20 PM CDT Comment: ----ADDITIONAL INFORMATION---- Clutch Specialist's Cutoff: 200 ng/mL Benzodiazepines, U Negative Negative 04/12/2019 4:20 PM CD T Comment: ----ADDITIONAL INFORMATION---- Clutch Specialist's Cutoff: 150 ng/mL Buprenorphine, U Negative Negative 04/12/2019 4:20 PM CDT Comment: ----ADDITIONAL INFORMATION---- Clutch Specialist's Cutoff: 10 ng/mL Cocaine, U Negative Negative 04/12/2019 4:20 PM CDT Comment: ----ADDITIONAL INFORMATION---- Clutch Specialist's Cutoff: 150 ng/mL Methadone, U Negative Negative 04/12/2019 4:20 PM CDT Comment: ----ADDITIONAL INFORMATION---- Clutch Specialist's Cutoff: 200 ng/mL Methamphetamines, U Negative Negative 04/12/2019 4:20 PM C DT Comment: ----ADDITIONAL INFORMATION---- Clutch Specialist's Cutoff: 500 ng/mL Opiates, U Unconfirmed Positive (A) Negative 04/12/2019 4:2 0 PM CDT Comment: ----ADDITIONAL INFORMATION---- Clutch Specialist's Cutoff: 100 ng/mL Oxycodone, U Negative Negative 04/12/2019 4:20 PM CDT Comment: ----ADDITIONAL INFORMATION---- Clutch Specialist's Cutoff: 100 ng/mL Phencyclidine, U Negative Negative 04/12/2019 4:20 PM CDT Comment: ----ADDITIONAL INFORMATION---- Clutch Specialist's Cutoff: 25 ng/mL Propoxyphene, U Negative Negative 04/12/2019 4:20 PM CDT Comment: ----ADDITIONAL INFORMATION---- Clutch Specialist's Cutoff: 300 ng/mL Tetrahydrocannabinol, U Negative Negative 04/12/2019 4:20 PM CDT Comment: ----ADDITIONAL INFORMATION---- Clutch Specialist's Cutoff: 50 ng/mL Tricyclic Antidepressants, U Negative Negative 04/12/2019 4:20 PM CDT Comment: ----ADDITIONAL INFORMATION---- Clutch Specialist's Cutoff: 300 ng/mL THE ABOVE DRUG SCREEN PANEL IS FOR MED ICAL PURPOSES ONLY Specimen Anatomical Collection Method Collection Time Receive d Time (Source) Location / / Volume Laterality Urine (Urine, 04/12/2019 3:57 PM 04/12/20 19 3:57 Catheter) CDT PM CDT Xin Vaughn M.D. LAB URINE ORDERABLES Performing Organization Address City/State/ZIP Code Phon e Number [facility] [place] [address] LAB (ABNORMAL) CBC without Differential (04/12/2019 3:48 PM CDT) [facility] gist Method Time Signature Hemoglobin 11.0 (L) 11.6 - 04/12/2019 15.0 g/dL 3:56 PM CDT Hematocrit 34.0 (L) 35.5 - 04/12/2019 44.9 % 3:56 PM CDT Erythrocytes 3.90 (L) 3.92 - 04/12/2019 5.13 3:56 PM CDT x10(12)/L MCV 87.2 78.2 - 04/12/2019 97.9 fL 3:56 PM CDT RBC Distrib Width 14.7 12.2 - 04/12/2019 16.1 % 3:56 PM CDT Platelet Count 246 157 - 371 04/12/2019 x10(9)/L 3:56 PM CDT Leukocytes 17.7 (H) 3.4 - 9.6 04/12/2019 x10(9)/L 3:56 PM CDT Specimen Anatomical Collection Method Collection Time Receive d Time (Source) Location / / Volume Laterality Blood (Blood, 04/12/2019 3:48 PM 04/12/20 19 3:54 Venous) CDT PM CDT Xin Vaughn M.D. LAB BLOOD ADD-ON Performing Organization Address City/State/ZIP Code Phon e Number [facility] Jeffrey[place]ilo [place] [address] [place] [facility] HIV-1 p24 Ag, HIV-1/2 Ab ,P (04/12/2019 3:48 PM CDT) athologist Signature HIV Ag/Ab Negative Negative 04/13/2019 Scrn, 12:23 PM CDT P Comment: Negative result does not rule out HIV in fection. If exposure to HIV infection occurred <14 d ays ago, contact the laboratory to request additi on of HIV-1 RNA detection / quantification test. HIV-1 p24 Ag Scrn, P Negative Negative 04/13/2019 12:23 PM CDT Comment: Negative result does not rule out HIV in fection. If exposure to HIV infection occurred <14 d ays ago, contact the laboratory to request additi on of HIV-1 RNA detection / quantification test. HIV-1 Ab Scrn, P Negative Negative 04/13/2019 12: 23 PM CDT Comment: Negative result does not rule out HIV in fection. If exposure to HIV infection occurred <14 d ays ago, contact the laboratory to request additi on of HIV-1 RNA detection / quantification test. HIV-2 Ab Scrn, P Negative Negative 04/13/2019 12: 23 PM CDT Comment: Negative result does not rule out HIV in fection. If exposure to HIV infection occurred <14 d ays ago, contact the laboratory to request additi on of HIV-1 RNA detection / quantification test. Specimen Anatomical Collection Method Collection Time Receive d Time (Source) Location / / Volume Laterality Blood (Blood, 04/12/2019 3:48 PM 04/12/20 19 9:34 Venous) CDT PM CDT Xin Vaughn M.D. LAB MICROBIOLOGY - BLOOD ORD ERABLES Performing Organization Address City/State/ZIP Code Phon e Number [facility] [address] [facility] [place] [address] [facility] (TTE) 2D ECHO DOPPLER COLOR (04/12/2019 3:38 PM CDT) [facility] gist Method Time Signature Ejection Fraction 64 MC CV EIMS LV Mass Index 71 MC CV EIMS LV End-Diastolic 46 MC CV EIMS Diameter LV End-Systolic 29 MC CV EIMS Diameter MV e' Velocity 0.08 MC CV EIMS Medial MV e' Velocity 0.12 MC CV EIMS Lateral Left ventricular 24 MC CV EIMS stroke volume index Cardiac Output 6.50 MC CV EIMS Cardiac Index 2.73 MC CV EIMS LV Interventricular 10 MC CV EIMS Septal Wall Thickness LV Posterior Wall 11 MC CV EIMS Thickness LV Relative Wall 48 MC CV EIMS Thickness Tricuspid Annular S? 0.16 MC CV EIMS TR Vmax 2.50 MC CV EIMS RA Pressure 5 MC CV EIMS RV Systolic Pressure 30 MC CV EIM S Aortic valve area 3.00 MC CV EIMS Aortic Valve 0.79 MC CV EIMS Dimensionless Index LA Volume Index 21 MC CV EIMS Anatomical Region Laterality Modality Echocardiography Specimen (Source) Anatomical Collection Method Collection Time Re ceived Time Location / / Volume Laterality 04/12/2019 2:22 PM CDT Impressions 04/12/2019 3:55 PM CDT Bedside echo performed. ??Transthoracic outreach echo interpretation. ??LEFT VENTRICLE: ??Normal left ventricular chamber size. ??Normal left ventricular wall thickness. ??Calculated left ventricular ejection fraction 64 %. ??No regional wall motion abnormalities. ??Indeterminate left ventricular diastolic function grade. ?? RIGHT VENTRICLE: ??Normal right ventricular size. ??Normal right ventricular systolic function. ??E stimated right ventricular systolic pressure 30 mmHg (systolic blood pressure 127 mmHg). ??AT JEAN: ??Normal left atrial size. ??Left atrial volume index 21 ml/m^2. ??Normal right atrial size. ? ?CARDIAC VALVES: ??Trileaflet aortic valve. ??Normal aortic valve. ??No aortic valve regurgitation. ??Normal mitral valve. ??Trivial mitral valve regurgitation. ??Normal pulmonary valve. ??Normal pulmonary valve systolic velocity. ??Trivial pulmonary valve regurgitation. ??Normal tricuspid valve. ??Trivial tricuspid valve regurgitation. OTHER ECHO FINDINGS: ??Normal inferior vena cava size with normal inspiratory collapse (>50%). Normal abdominal aorta Doppler flow martha marisa. ??No atrial level shunt by color flow imaging. ??No intracardiac mass or thrombus, but the l eft atrial appendage cannot be visualized adequately with transthoracic echo to exclude throm bus in this location. ??No pericardial effusion. For the complete report, see the Order-L evel Documents below. See PDF For Result Narrative 04/12/2019 3:55 PM CDT For the complete report, see the Order-L evel Documents below. Final Impressions 1. Normal left ventricular chamber size. ??Calculated ejection fraction 64%. No regional wall motion abnormalities. 2. Normal right ventricular systolic fun ction. 3. Estimated right ventricular systolic pressure 30 mmHg. 4. No significant valvular heart disease . 5. Normal inferior vena cava size with n ormal inspiratory collapse (>50%). 6. No pericardial effusion. 7. No previous studies available for Game[place]. Procedure Note Derek Booth M.D. - 04/12/2019Form atting of this note might be different from the original. For the complete report, see the Order-L evel Documents below. Final Impressions 1. Normal left ventricular chamber size. Calculated ejection fraction 64%. No regional wall motion abnormalities. 2. Normal right ventricular systolic fun ction. 3. Estimated right ventricular systolic pressure 30 mmHg. 4. No significant valvular heart disease . 5. Normal inferior vena cava size with n ormal inspiratory collapse (>50%). 6. No pericardial effusion. 7. No previous studies available for [place]. Findings Bedside echo performed. Transthoracic ou treach echo interpretation. LEFT VENTRICLE: Normal left ventricular chamber size. Normal le ft ventricular wall thickness. Calculated left ventricular ejection fraction 64 %. No r egional wall motion abnormalities. Indeterminate left ventricular diastolic function grade. RI GHT VENTRICLE: Normal right ventricular size. Normal right ventricular systolic function. Est imated right ventricular systolic pressure 30 mmHg (systolic blood pressure 127 mmHg). ATRI A: Normal left atrial size. Left atrial volume index 21 ml/m^2. Normal right atrial size. CAR DIAC VALVES: Trileaflet aortic valve. Normal aortic valve. No aortic valve regurgitation. No rmal mitral valve. Trivial mitral valve regurgitation. Normal pulmonary valve. N ormal pulmonary valve systolic velocity. Trivial pulmonary valve regurgitation. Normal tr icuspid valve. Trivial tricuspid valve regurgitation. OTHER ECHO FINDINGS: Normal inferior ve na cava size with normal inspiratory collapse (>50%). Normal abdominal aorta Doppler flow martha marisa. No atrial level shunt by color flow imaging. No intracardiac mass or thrombus, but the l eft atrial appendage cannot be visualized adequately with transthoracic echo to exclude throm bus in this location. No pericardial effusion. For the complete report, see the Order-L evel Documents below. See PDF For Result Xin M Larish M.D. CV ECHO PROCEDURES CT Abdomen Pelvis with IV Contrast (04/12/2019 1:53 PM CDT) Anatomical Region Laterality Modality Abdomen, Pelvis, Abdominal RST LOS, Abdominal ARZ LOS, N/A Computed Tomography Abdominal FLA LOS Specimen (Source) Anatomical Collection Method Collection Time Re ceived Time Location / / Volume Laterality 04/12/2019 2:09 PM CDT Impressions 04/12/2019 2:20 PM CDT 18 cm acute hematoma with mass effect on the enlarged , post uterus. Hematoma is hyperdense, compatib le with acute hemorrhage. However, no focal linear regions of hyperdensity to suggest active extravasation. However, follow-up imaging should be considered. Findings of acute hematoma in the postsu rgical setting were discussed in person on 04/12/2019 at approximately 1:[address] Hernandez and Jose. Narrative 04/12/2019 2:20 PM CDT EXAM: CT ABDOMEN PELVIS WITH IV CONTRAST COMPARISON: 11/07/2017 CT FINDINGS: The partially visualized lung bases are assessed on dedicated CT of the chest, which is reportedly separately. The live r is unremarkable. Cholecystectomy. Unremarkable pancreas. Mild splenomegaly . Unremarkable adrenal glands. Nonobstructing 3 mm calculus right renal inferior pole. 2 mm calculus left renal inferior pole. No hydronephrosis. Kidney s enhance symmetrically. The mid and distal right ureter are obscured. 10.0 x 12.0 x 18.0 hyperdense hematoma in the right lower abdomen\pelvis with mass eff ect on the , post uterus. Areas of hematoma measure 54 Erica nsfield units density no focal hyperdense collection to suggest acute a ctive extravasation. Right ovarian vein is unremarkable. Small amount of pneumop eritoneum, in the setting of same day and subcutaneous emphysema. Ca theter in the decompressed urinary bladder. No pathologic appearing bone le sions. Procedure Note Cedric Lozada M.D. - 04/12/2019Formatt ing of this note might be different from the original. EXAM: CT ABDOMEN PELVIS WITH IV CONTRAST COMPARISON: 11/07/2017 CT FINDINGS: The partially visualized lung bases are assessed on dedicated CT of the chest, which is reportedly separately. The live r is unremarkable. Cholecystectomy. Unremarkable pancreas. Mild splenomegaly . Unremarkable adrenal glands. Nonobstructing 3 mm calculus right renal inferior pole. 2 mm calculus left renal inferior pole. No hydronephrosis. Kidney s enhance symmetrically. The mid and distal right ureter are obscured. 10.0 x 12.0 x 18.0 hyperdense hematoma in the right lower abdomen\pelvis with mass eff ect on the , post uterus. Areas of hematoma measure 54 Erica nsfield units density no focal hyperdense collection to suggest acute a ctive extravasation. Right ovarian vein is unremarkable. Small amount of pneumop eritoneum, in the setting of same day and subcutaneous emphysema. Ca theter in the decompressed urinary bladder. No pathologic appearing bone le sions. IMPRESSION: 18 cm acute hematoma with mass effect on the enlarged , post uterus. Hematoma is hyperdense, compatib le with acute hemorrhage. However, no focal linear regions of hyperdensity to suggest active extravasation. However, follow-up imaging should be considered. Findings of acute hematoma in the postsu rgical setting were discussed in person on 04/12/2019 at approximately 1:[address] [facility] [address] Hernandez and Jose. Xin Vaughn M.D. IMSendy CT PROCEDURES CT Chest Angiogram and Pulmonary Arteries with IV Contrast (04/12/2019 1:53 PM CDT) Anatomical Region Laterality Modality Chest, Cardiovascular RST LOS, Thoracic ARZ LOS, N/A Computed Tomography Thoracic FLA LOS Specimen (Source) Anatomical Collection Method Collection Time Re ceived Time Location / / Volume Laterality 04/12/2019 1:59 PM CDT Impressions 04/12/2019 2:05 PM CDT 1. ??Negative for acute pulmonary embolism. 2. ??Evaluation of the segmental and sub segmental pulmonary arteries is very limited by technique. Negative for centr al pulmonary embolism. Narrative 04/12/2019 2:05 PM CDT EXAM: CT CHEST ANGIOGRAM AND PULMONARY ARTERIES WITH IV CONTRAST 3D/MIPS: 3D Post-Processing performed on a dependent workstation. COMPARISON: 11/04/2017 FINDINGS: Negative for acute pulmonary e mbolism. Evaluation of the segmental and subsegmental pulmonary arteries is very limited by technique. No central pulmonary embolism. Normal caliber thoracic aorta. Mild scat tered atelectasis. No focal airspace opacities or consolidations. The central airways are patent. No pleural effusion. No acute osseous findings. Ple ase see separate report for findings in the abdomen and pelvis. Findings related to technique were discu ssed with Dr. Berny Garcia at 1:55 PM on 04/12/2019. Procedure Note Royce Lozada M.D. - 04/12/2019For matting of this note might be different from the original. EXAM: CT CHEST ANGIOGRAM AND PULMONARY A RTERIES WITH IV CONTRAST 3D/MIPS: 3D Post-Processing performed on a dependent workstation. COMPARISON: 11/04/2017 FINDINGS: Negative for acute pulmonary e mbolism. Evaluation of the segmental and subsegmental pulmonary arteries is very limited by technique. No central pulmonary embolism. Normal caliber thoracic aorta. Mild scat tered atelectasis. No focal airspace opacities or consolidations. The central airways are patent. No pleural effusion. No acute osseous findings. Ple ase see separate report for findings in the abdomen and pelvis. Findings related to technique were discu ssed with Dr. Berny Garcia at 1:55 PM on 04/12/2019. IMPRESSION: 1. Negative for acute pulmonary embolism . 2. Evaluation of the segmental and subse gmental pulmonary arteries is very limited by technique. Negative for centr al pulmonary embolism. Xin Vaughn M.D. IMG CT PROCEDURES (ABNORMAL) Lactate (04/12/2019 1:19 PM CDT) athologist Signature Lactate, P 3.3 (H) 0.5 - 2.2 04/12/2019 mmol/L 1:47 PM CDT Specimen Anatomical Collection Method Collection Time Receive d Time (Source) Location / / Volume Laterality Blood (Blood, 04/12/2019 1:19 PM 04/12/20 19 1:27 Venous) CDT PM CDT Xin Vaughn M.D. LAB BLOOD NON ADD-ON Performing Organization Address City/State/ZIP Code Phon e Number [facility] [address] [place] [address] [facility] (ABNORMAL) CMP (Comprehensive Metabolic Panel) (04/12/2019 1:19 PM CDT) P athologist Signature Potassium, P 4.5 3.6 - 5.2 04/12/2019 mmol/L 1:49 PM CDT Sodium, P 136 135 - 145 04/12/2019 mmol/L 1:49 PM CDT Chloride, P 104 98 - 107 04/12/2019 mmol/L 1:49 PM CDT Bicarbonate, P 18 (L) 22 - 29 04/12/2019 mmol/L 1:49 PM CDT Anion Gap, P 14 7 - 15 04/12/2019 1:49 PM CDT BUN (Blood Urea 16 6 - 21 04/12/2019 Nitrogen), P mg/dL 1:49 PM CDT Creatinine 0.88 0.59 - 04/12/2019 1.04 mg/dL 1:49 PM CDT eGFR-Black/Afri >90 >=60 04/12/2019 can Citizen Of [place] mL/min/BSA 1:49 PM CDT Comment: ----ADDITIONAL INFORMATION---- Estimated GFR calculated using the 2009 CKD_EPI creatinine equation. eGFR Non-Black/ 87 >=60 mL/min/BSA 1:49 PM CDT Comment: ----ADDITIONAL INFORMATION---- Estimated GFR calculated using the 2009 CKD_EPI creatinine equation. Calcium, Total, P 8.4 (L) 8.6 - 10.0 mg/dL 04/12/2019 1:49 PM CDT Glucose, P 156 (H) 70 - 140 mg/dL 04/12/2019 1:49 PM CDT Protein, Total, P 4.9 (L) 6.3 - 7.9 g/dL 04/12/2019 1:49 P M CDT Albumin, P 2.4 (L) 3.5 - 5.0 g/dL 04/12/2019 1:49 PM CDT Aspartate Aminotransferase 15 8 - 43 U/L 04/12/2019 1 :49 PM CDT (AST), P Alkaline Phosphatase, P 137 (H) 35 - 104 U/L 04/12/2019 1: 49 PM CDT Alanine Aminotransferase (ALT), 6 (L) 7 - 45 U/L 019 1:49 PM CDT P Bilirubin, Total, P <0.2 <=1.2 mg/dL 04/12/2019 1:58 PM CDT Specimen Anatomical Collection Method Collection Time Receive d Time (Source) Location / / Volume Laterality Blood (Blood, 04/12/2019 1:19 PM 04/12/20 19 1:26 Venous) CDT PM CDT Xin Vaughn M.D. LAB BLOOD ADD-ON Performing Organization Address City/State/ZIP Code Phon e Number [facility] [address] [place] [address] [facility] (ABNORMAL) CBC with Differential, Blood (04/12/2019 1:19 PM CDT) [facility] Method Time Signature Hemoglobin 10.2 (L) 11.6 - 04/12/2019 15.0 g/dL 1:29 PM CDT Hematocrit 31.4 (L) 35.5 - 04/12/2019 44.9 % 1:29 PM CDT Erythrocytes 3.57 (L) 3.92 - 04/12/2019 5.13 1:29 PM CDT x10(12)/L MCV 88.0 78.2 - 04/12/2019 97.9 fL 1:29 PM CDT RBC Distrib Width 14.6 12.2 - 04/12/2019 16.1 % 1:29 PM CDT Platelet Count 236 157 - 371 04/12/2019 x10(9)/L 1:29 PM CDT Leukocytes 17.5 (H) 3.4 - 9.6 04/12/2019 x10(9)/L 1:29 PM CDT Neutrophils 16.26 (H) 1.56 - 04/12/2019 6.45 1:29 PM CDT x10(9)/L Lymphocytes 0.83 (L) 0.95 - 04/12/2019 3.07 1:29 PM CDT x10(9)/L Monocytes 0.34 0.26 - 04/12/2019 0.81 1:29 PM CDT x10(9)/L Eosinophils 0.00 (L) 0.03 - 04/12/2019 0.48 1:29 PM CDT x10(9)/L Basophils 0.03 0.01 - 04/12/2019 0.08 1:29 PM CDT x10(9)/L Specimen Anatomical Collection Method Collection Time Receive d Time (Source) Location / / Volume Laterality Blood (Blood, 04/12/2019 1:19 PM 04/12/20 19 1:26 Venous) CDT PM CDT Xin Vaughn M.D. LAB BLOOD ADD-ON Performing Organization Address City/State/ZIP Code Phon e Number [facility] [place] [address] [facility] Fibrinogen (04/12/2019 1:18 PM CDT) P athologist Signature Fibrinogen, P 496 187 - 513 04/12/2019 mg/dL 4:18 PM CDT Specimen Anatomical Collection Method Collection Time Receive d Time (Source) Location / / Volume Laterality Blood (Blood, 04/12/2019 1:18 PM 04/12/20 19 4:11 Venous) CDT PM CDT Xin Vaughn M.D. LAB BLOOD ADD-ON Performing Organization Address [facility]/ZIP Code Phon e Number [facility] [place] [address] [facility] PT (Prothrombin Time) with INR (04/12/2019 1:18 PM CDT) P athologist Signature Prothrombin 8.9 8.8 - 11.9 04/12/2019 Time, P sec 4:18 PM CDT INR 0.9 0.9 - 1.2 04/12/2019 4:18 PM CDT Comment: Standard intensity warfarin therapeutic range: 2.0 to 3.0 High intensity warfarin therapeutic rang e: 2.5 to 3.5 Specimen Anatomical Collection Method Collection Time Receive d Time (Source) Location / / Volume Laterality Blood (Blood, 04/12/2019 1:18 PM 04/12/20 19 4:11 Venous) CDT PM CDT Xin Vaughn M.D. LAB BLOOD ADD-ON Performing Organization Address City/[facility]/ZIP Code Phon e Number [facility] [address] [facility] DX Abdomen Portable Anterior Posterior 1 View (04/12/2019 10:51 AM CDT) Anatomical Region Laterality Modality Abdomen, Abdominal RST LOS, Abdominal ARZ LOS, N/A Computed Radiography Abdominal FLA LOS Specimen (Source) Anatomical Collection Method Collection Time Re ceived Time Location / / Volume Laterality 04/12/2019 11:06 AM CDT Impressions 04/12/2019 11:11 AM CDT No radiopaque foreign body in the pelvis. Radiopaque densities projecting over the right In the midabdo men which may be in the colon. ??Slight diastases of the symphysis pubis probabl y within physiologic limits for peripartum state. Remainder unremarkable . Narrative 04/12/2019 11:11 AM CDT EXAM: DX ABDOMEN PORTABLE ANTERIOR POSTERIOR 1 VIEW Procedure Note Lacho Robles M.D. - 04/12/2019Formatt ing of this note might be different from the original. EXAM: DX ABDOMEN PORTABLE ANTERIOR POSTE RIOR 1 VIEW IMPRESSION: No radiopaque foreign body in the pelvis . Radiopaque densities projecting over the right In the midabdo men which may be in the colon. Slight diastases of the symphysis pubis probabl y within physiologic limits for peripartum state. Remainder unremarkable . Xin Vaughn M.D. IMG DIAGNOSTIC IMAGING [facility] Pathology Services (04/12/2019 10:20 AM CDT) Component Value Ref Test Analysis Performed At [facility] Range Method Time Signature PATHOLOGY Patient Name: [facility] MR#: [id number] [facility] Submitting Physician: XIN VAUGHN MD [id number] Specimen #[id number] Performing Lab: ??[facility] ? [address] [place] [id number] Source: Placenta Gross Description Received is a 19 x 18 x 3 cm placenta with an eccentrically placed 53 cm trivascular umbilical cord. ??The umbilical cord is normal. ??The surface of the placenta is slightly meconium-stained. ??The membr anes are inserted in a marginal manner. ??Complete membranes are present. ??After r emoval of the umbilical cord and membranes, the placenta weighs 691 gram s. ??The maternal surface of the placenta has a normal cotyledon pattern. ?? Multiple parallel sections are taken through the placenta revealing normal cho rionic tissue. There are 5 grams of attached blood clot . ??Photographs are taken of the and maternal surfaces and banking representative sections are subm itted as follows: Umbilical cord sections from the base and at mid-section are submitted in cassette 1, membrane rolls from two different areas are submitted in cassette 2, two placenta sections are submitted in cassette 3, an d two placenta sections are submitted in cassette 4. KG/ps ?? Diagnosis Placenta: 1) ??THIRD TRIMESTER PLACENTA WITH TRIVASCULAR UMBILICAL COR D. 2) ??MECONIUM STAINING. 3) ??NEGATIVE FOR ACUTE CHORIOAMNIONITIS. Electronically Signed By USAMA MALDONADO MD - 04/13/2019 pjs/04/13/2019 Specimen (Source) Anatomical Collection Method Collection Time Re ceived Time Location / / Volume Laterality Tissue (Placenta) 04/12/2019 10:20 AM CDT Xin Vaughn M.D. LAB SURG PATH ORDERABLES Performing Organization Address City/[facility]/ZIP Code Phon e Number [address] [address] Testing Location (04/12/2019 9:42 AM CDT) P athologist Signature Testing [facility] DEFAULT 04/12/2019 Location 9:47 AM CDT Specimen Anatomical Collection Method Collection Time Receive d Time (Source) Location / / Volume Laterality Blood 04/12/2019 9:42 AM 9 9:47 CDT AM CDT Xin Vaughn M.D. LAB BLOOD BANK TEST ORDERABL ES Performing Organization Address City/[facility]/ZIP Code Phon e Number [facility]- [address] [place] [address] LAB Type and Screen (with reflex Antibody ID) (04/12/2019 9:42 AM CDT) Patholo gist Method Time Signature ABO Group A 04/12/2019 10:12 AM CDT Rh Type NEG 04/12/2019 10:13 AM CDT Antibody Screen NEG 04/12/2019 10:28 AM CDT Type & Screen 04/15/2019 04/12/2019 Expiration 23:59 10:28 AM CDT ELXM Eligible Y 04/12/2019 10:28 AM CDT Specimen Anatomical Collection Method Collection Time Receive d Time (Source) Location / / Volume Laterality Blood (Blood, 04/12/2019 9:42 AM 04/12/20 9:47 Venous) CDT AM CDT Xin Vaughn M.D. LAB BLOOD BANK TEST ORDERABL ES Performing Organization Address City/State/ZIP Code Phon e Number [facility] [address] [place] [address] [facility] Hepatitis B Surface Antigen (04/12/2019 9:41 AM CDT) Patholo gist Method Time Signature HBs Antigen, Nonreactive Nonreactive 04/12/2019 S 2:59 PM CDT Comment: Biotin has been identified by the doug saucedo as a potential interfering substance. ??Higher concentr ations of biotin may be found in multivitamins, hair/nail supple ments, and workout supplements. ??If the result does not ma tc clinical observations, repeat testing after patient refrains fr om the use of supplements for at least 12 hours. Specimen (Source) Anatomical Collection Method Collection Time Re ceived Time Location / / Volume Laterality Blood (Blood, 04/12/2019 9:41 04/12/2019 2:19 Peripheral Draw) AM CDT PM CDT Xin Vaughn M.D. LAB MICROBIOLOGY - BLOOD ORD ERABLES Performing Organization Address City/State/ZIP Code Phon e Number [facility] [place] [address] [place], [place] [address] [address] [facility] LAB HBc Total Ab, Serum (04/12/2019 9:41 AM CDT) P athologist Signature HBc Total Ab, Negative Negative 04/12/2019 w/Reflex, S 2:59 PM CDT Comment: Biotin has been identified by the doug saucedo as a potential interfering substance. ??Higher concentr ations of biotin may be found in multivitamins, hair/nail supple ments, and workout supplements. ??If the result does not ma tc clinical observations, repeat testing after patient refrains fr om the use of supplements for at least 12 hours. Specimen (Source) Anatomical Collection Method Collection Time Re ceived Time Location / / Volume Laterality Blood (Blood, 04/12/2019 9:41 04/12/2019 2:19 Peripheral Draw) AM CDT PM CDT Xin Vaughn M.D. LAB MICROBIOLOGY - BLOOD ORD Action EngineBLES Performing Organization Address City/[facility]/ZIP Code Phon e Number [facility] [place] [address] [place], [place] [address]aren [facility] [address] [facility] LAB HBs Antibody, Serum (04/12/2019 9:41 AM CDT) athologist Signature HBs Antibody, Positive 04/12/2019 S 2:59 PM CDT Comment: Biotin has been identified by the doug saucedo as a potential interfering substance. ??Higher concentr ations of biotin may be found in multivitamins, hair/nail supple ments, and workout supplements. ??If the result does not [facility] clinical observations, repeat testing after patient refrains fr om the use of supplements for at least 12 hours. ----REFERENCE VALUE---- Unvaccinated: Negative Vaccinated: Positive HBs Antibody, Quantitative, S >790.0 mIU/mL 04/12/2019 2:59 PM CDT Comment: ----REFERENCE VALUE---- <8.50: Negative 8.50-11.49: Indeterminate >=11.50: Positive Specimen (Source) Anatomical Collection Method Collection Time Re ceived Time Location / / Volume Laterality Blood (Blood, 04/12/2019 9:41 04/12/2019 2:19 Peripheral Draw) AM CDT PM CDT Xin Vaughn M.D. LAB MICROBIOLOGY - BLOOD ORD Action EngineRISA Performing Organization Address City/[facility] Code Phon e Number [facility] [place] [address] [place] [address] [facility] [address] [facility] LAB documented in this encounter Visit Diagnoses Not on filedocumented in this encounter Admitting Diagnoses Diagnosis Precipitate Labor (HCC) documented in this encounter Administered Medications Inactive Administered Medications - up to 3 most recent administrations Medication Order MAR Action Action Date Dose Rate Site acetaminophen tablet 1,000 mg Given 04/15/2019 11:20 AM CDT 1,00 0 mg (TYLENOL) 1,000 mg, oral, Every 6 hours, First dose on Wed04/12/19 at 1400, Post-, Administer acetaminophen at same time as ketorolac or ibuprofen. Given 04/15/2019 4:52 AM CDT 1,000 mg Given 04/14/2019 9:58 PM CDT 1,000 mg bupivacaine-EPINEPHrine 0.5 %-1:200,000 Given 04/12/2019 11:22 A M CDT 60 mL injection (MARCAINE w/EPI) As needed, Starting on Wed04/12/19 at 1122, Intra-Op docusate sodium capsule 100 mg (COLACE) Given 04/15/2019 9:00 AM CDT 100 mg 100 mg, oral, 2 times daily, First dose on Wed04/12/19 at 2100, Post-, Do NOT crush or chew. Given 04/14/2019 9:58 PM CDT 100 mg Given 04/14/2019 8:55 AM CDT 100 mg magnesium sulfate 40 mg/mL in water New Bag 04/12/2019 1:55 PM CDT 2 g/hr 50 mL/hr 500 mL infusion 2 g/hr (50 mL/hr), intravenous, Continuous, Starting on Wed04/12/19 at 1430, Premix ba grams in 500 mL NaCl 0.9% infusion New Bag 04/15/2019 8:48 AM CDT 20 mL/hr 20 mL/hr 20-500 mL/hr, intravenous, As needed, Between Units of Blood Products, Starting on Wed04/13/19 at 0655, Infuse at the same rate as the blood infusion until tubing cleared. Nurse may reduce rate to 20 mL/hour or as otherwise directed until next blood infusion arrives then discontinue when infusion complete. New Bag 04/13/2019 10:20 AM CDT 20 mL/hr 20 mL/hr New Bag 04/13/2019 7:40 AM CDT 20 mL/hr 20 mL/hr oxyCODONE IR tablet 10 mg (ROXICODONE) 10 mg, oral, Every 4 hours PRN, severe p ain or score 7-10 of 10, Starting on Wed04/13/19 at 2046 oxyCODONE IR tablet 5 mg (ROXICODONE) Given 04/14/2019 1:12 PM CDT 5 mg 5 mg, oral, Every 4 hours PRN, moderate pain or score 4-6 of 10, Starting on Wed04/13/19 at 2046 Given 04/14/2019 9:00 AM CDT 5 mg Given 04/14/2019 4:34 AM CDT 5 mg perflutren lipid microspheres injection (DEFINITY) intravenous, Once in imaging, contrast, Starting on 04/12/19 at 1311, For 1 dose, Gently hand agitate 10 mL syringe filled with 1.3 mL of activated DEFINITY?? diluted with 8.7 mL of preservative-free saline to evenly distribute microspheres. Initial injection of up to 3 mL administ ered slowly. Subsequent injection of 1 to 2 mL as needed. sennosides tablet 17.2 mg (SENOKOT) Given 04/15/2019 4:52 AM CDT 17.2 mg 17.2 mg, oral, Daily at bedtime, First dose on Wed04/12/19 at 2100, Post- Given 04/13/2019 8:46 PM CDT 17.2 mg Given 04/12/2019 9:20 PM CDT 17.2 mg documented in this encounter Active and Recently Administered Medications Times are shown in CDT. Scheduled Medication Order 04/13/2019 04/14/2019 04/15/2019 acetaminophen tablet 1,000 mg (TYLENOL) 0247 (Given - Provider: Denise Aranda RBrittaneyNBrittaney)0837 (Given - Provider: Shiela Bernal R.N.)1501 (Given - Provider: Shiela Bernal R.N.)2047 (Given - Provider: Marsha Enamorado R.N.) 0206 (Given - Provider: Marsha Enamorado R.N.)0854 (Given - Provider: Cornelia Ritchie R.N.)1454 (Given - Provider: Cornelia Ritchie R.N.)2158 (Given - Provider: Danya Herndon R.N.) 0452 (Given - Provider: Danya Herndon R.N. - Comment: was sleeping)1120 (Given - Provider: Cornelia Ritchie R.N.)1400 (Due) 1,000 mg, oral, Every 6 hours, First dos e on Wed04/12/19 at 1400, Post-, Administer acetaminophen at same time as ketorolac or ibuprofen. bupivacaine PF 0.25 % (2.5 mg/mL) injection 25 mg (MARCAINE) (CO MPLETED) 0810 (Given - Provider: Cornelia Ritchie R.N. - Comment: Administered by Dr. Josue for Nexplanon removal in left upper inner arm.) 25 mg (10 mL), injection, Once, 04/15/19 at 0800, For 1 dose ceFAZolin in dextrose (iso-osm) IVPB 2 g (ANCEF) (COMP LETED) 0247 (New Bag - Provider: Denise Aranda R.N.) 2 g, intravenous, at 100 mL/hr, Administ er over 30 Minutes, Every 8 hours, First dose on Wed04/12/19 at 1800, For 2 doses, Post-, Start within 8 hours of last IV dose. premix bag, Drug Monitoring Program: Pharmacist to adjust medication dosing based on indication and drug clearance factors., Indications: Prophylaxis, surgical cefTRIAXone in dextrose (iso-osm) IVPB 1 g (ROCEPHIN) (COMPLETED ) 0849 (New Bag - Provider: Cornelia Ritchie R.N.) 1 g, intravenous, at 200 mL/hr, Administ er over 15 Minutes, Every 24 hours, First dose on 04/15/19 at 0815, For 1 dose, premix bag, Drug Monitoring Program: Pharmacist to adjust medication dosing bas ed on indication and drug clearance fact ors., Indications: Obstetric or gynecological infection docusate sodium capsule 100 mg (COLACE) 0837 (Given - Provider: Shiela Bernal R.N.)6 (Given - Provider: Marsha Enamorado R.N.) 0855 (Given - Provider: Cornelia Ritchie R.N.)2158 (Given - Provider: Danya Herndon R.N.) 0900 (Given - Provider: Cornelai Ritchie R.N.) 100 mg, oral, 2 times daily, First dose on Wed04/12/19 at 2100, Post-, Do NOT crush or chew. enoxaparin injection 40 mg (LOVENOX) 0900 (Dose Auto H eld - Provider: Xin Vaughn M.D.) 0900 (Dose Auto Held - Provider: Xin Vaughn M.D. ) 09 (Dose Auto Held - Provider: Xin Vaughn M.D.)2019 (Unheld by provider - Provider: Discharge Provider, Automatic) 40 mg, subcutaneous, Daily, First dose on Bryanna 04/13/19 at 0900, P ost- enoxaparin injection 40 mg (LOVENOX) (COMPLETED) 0856 (Given - Provider: Cornelia Ritchie R.N.) 40 mg, subcutaneous, Daily, First dose on 04/15/19 at 0900, F or 1 dose iron sucrose injection 200 mg of iron (VENOFER) (COMPLETED) 1554 (Given - Provider: Cornelia Ritchie R.N.) 1604 (Given - Provider: Rajwinder Benito) 200 mg of iron, intravenous, Every 24 ho urs, First dose on Wed04/14/19 at 1430, For 2 doses sennosides tablet 17.2 mg (SENOKOT) 2045 (Given - Prov ider: Marsha Enamorado R.N.) 0452 (Given - Provider: Prateek Herndon R.N. - Comment: [atient changed mind) 17.2 mg, oral, Daily at bedtime, First dose on 03/24 at 2100, Post- Continuous Medication Order 04/13/2019 04/14/2019 04/15/2019 lactated ringers 75 mL/hr, intravenous, at 75 mL/hr, Cont inuous, Starting Wed04/12/19 at 1400, Post-, Continue delivery fluids until current bag of uterotonic finished then begin this fluid. Discontinue when tolerating PO magnesium sulfate 40 mg/mL in water 500 mL infusion 2 g/hr (50 mL/hr), intravenous, at 50 mL /hr, Continuous, Starting Wed04/12/19 at 1430, Premix ba grams in 500 mL oxytocin 60 bradford-Units/mL in NaCl 500 mL infusion (PITOCIN) 15 Units/hr (250 mL/hr), intravenous, at 250 mL/hr, Continuous, Starting Wed04/12/19 at 1400, Post-, Begin immediately after delivery of fetus (or fetuses). Discontinue oxytocin after 500 ml infus ed if patient stable. Initiate postpartu m hemorrhage orders when indicated by provider. Premix ba Units in 500 mL PRN Medication Order 04/13/2019 04/14/2019 04/15/2019 calcium carbonate chewable tablet 400 mg of calcium (TUMS) 400 mg of calcium, oral, Every 2 hour WA N, indigestion, Starting Wed04/12/19 at 1356, Post-, One 500 mg tablet contains 200 mg of calcium. 500 mg calcium carbonate contains 200 mg of elemental calcium. fentaNYL injection 50 mcg (SUBLIMAZE) 50 mcg, intravenous, Once as needed, sev ere pain or score 7-10 of 10, Starting Wed04/12/19 at 1356, For 1 dose, Post-, For pain rated greater than 7 more than 1 hour after receiving oxycodone. Not kristopher service if pain rated 4 or greater 30 minutes after fentanyl . hydrocortisone 2.5 % rectal cream 1 application (ANUSOL-HC) 1 application, rectal, Every 4 hours PRN , hemorrhoids, Starting Wed04/12/19 at 1356, Post- NaCl 0.9% infusion 0740 (New Bag - Provider: Rai Bernal R.N. - Comment: With blood)1020 (New Bag - Provider: Shiela Bernal RRoverto) 0848 (New Bag - Provider: Cornelia Ritchie R.N. - Comment: Hung with IV antibiotic.) 20-500 mL/hr, intravenous, at 20-500 mL/ hr, As needed, Between Units of Blood Products, Starting [facility] 04/13/19 at 0655, Infuse at the same rate as the blood infusion until tubing cleared. Nurse may reduce rate to 20 mL/hour or as otherwise dire cted until next blood infusion arrives then discontinue when infusion complete. naloxone injection 0.2 mg (NARCAN) 0.2 mg, intravenous, As needed, respirat ory depression, Starting Wed04/12/19 at 1356, Post-, For respiratory rate less than 8 breaths per minute or RASS score of -3, -4, -5. Apply oxygen to keep o xygen saturations greater than 90% and notify service. ondansetron (PF) injection 4 mg (ZOFRAN) 4 mg, intravenous, Every 6 hours PRN, na usea, vomiting, Starting Wed04/12/19 at 1356, Post-, If patient unable to take oral oxyCODONE IR tablet 10 mg (ROXICODONE) (CANCELED) 0606 (Given - Provider: Denise Aranda R.N.)1111 (Given - Provider: Shiela Bernal R.N.)1620 (Given - Provider: Shiela Bernal R.N.) 10 mg, oral, Every 4 hours PRN, severe p ain or score 7-10 of 10, Starting 04/12/19 at 1356, Post-, Begin 24 hours after neuraxial long-acting opiate given or if no neuraxial long-acting opiate used start immediately post-operative. oxyCODONE IR tablet 10 mg (ROXICODONE)(Linked Group 1) 2106 (See Alternative - Provider: Marsha Enamorado R.N.) 004 (See Alternative - Provider: Marsha Enamorado R.N.)0434 (See Alternative - Provider: Marsha Enamorado R.N.)0900 (See Alternative - Provider: Cornelia Ritchie R.N.)1312 (See Alternative - Provider: Cornelia Ritchie R.N.) 10 mg, oral, Every 4 hours PRN, severe p ain or score 7-10 of 10, Starting [place] 04/13/19 at 2047 oxyCODONE IR tablet 5 mg (ROXICODONE)(Linked Group 1) 2106 (Given - Provider: Marsha Enamorado R.N.) 004 (Given - Provider: Marsha Enamorado R.N.)0434 (Given - Provider: Marsha Enamorado R.N.)0900 (Given - Provider: Cornelia Ritchie R.N.)1312 (Given - Provider: Cornelia Ritchie R.N.) 5 mg, oral, Every 4 hours PRN, moderate pain or score 4-6 of 10, Starting [place] 04/13/19 at 2047 perflutren lipid microspheres injection (DEFINITY) intravenous, Once in imaging, contrast, Starting 04/12/19 at 1311, For 1 dose, Gently hand agitate 10 mL syringe filled with 1.3 mL of activated DEFINITY?? diluted with 8.7 mL of preservative-free sa line to evenly distribute microspheres. Initial injection of up to 3 mL administered slowly. Subsequent injection of 1 to 2 mL as needed. rho(D) immune globulin injection 300 mcg (RHOGAM) 300 mcg, intramuscular, Once as needed, after rh(D) antibody including Xochilt test is drawn if baby is Rh positive, Starting Wed04/12/19 at 1356, For 1 dose, Post-, If level of procedural exposur e indicates, Transfusion Medicine Ronnie nugentbrian will notify prescriber for need of additional dosage(s) (all doses will be in increments of 300 mcg). The prescriber will order additional dosages. simethicone chewable tablet 160 mg (MYLICON) 160 mg, oral, Every 6 hours PRN, flatule nce, for abdominal gas, Starting Wed04/12/19 at 1356, Post- witch donte pad 1 application (TUCKS) 1 application, topical, 3 times daily WA N, irritation, or pain., Starting Wed04/12/19 at 1356, Post-, To perineum - If ordered may use in combination with benzocaine-menthol topical spray (DERMOPLAST) Linked Groups Order Group 1: oxyCODONE IR tablet 5 mg (ROXICODONE)Jump to med 5 mg, oral, Every 4 hours PRN, moderate pain or score 4-6 of 10, Starting [facility] 04/13/19 at 2046 Or oxyCODONE IR tablet 10 mg (ROXICODONE)Jump to med 10 mg, oral, Every 4 hours PRN, severe p ain or score 7-10 of 10, Starting [facility] 04/13/19 at 2046 documented in this encounter Additional Health Concerns Assessment Noted Time PHQ-9 Depression Total Score: 7 04/07/2017 9:39 AM CDT documented as of this encounter Care Teams Molding Cutter Relationship Specialty Start Date End Date Blaire Bundy PBrittaneyACory. PCP - General 02/04/17 04/26/19 documented as of this encounter
--- OUTSIDE RECORDS SUMMARY | 2022-06-29 09:27 | XMS_ITS | Encounter Summary ---
:1985 Author Organization [facility] Address [address] [place] [address] Care Team Providers Name Role Phone Blaire Bundy P.A.-C. Primary Care Provider [phone] Encounter Details Date Type Department Care Team Description 07/21/2018 Orders Only Department of Obstetrics Leonora Reaves A PRN, and Gynecology in [address] [address] [place] [address] [phone] Social History Tobacco Use Types Packs/Day Years [...] or relatives? How often do you attend sabianism or adventist More than 4 time s per year 07/09/2020 services? Do you belong to any clubs or organizations No 04/19/2019 such as sabianism groups, unions, fraternal or athletic groups, or [...] as of this encounter Care Teams Home Lighting Adviser Relationship Specialty Start Date End Date Blaire Bundy P.A.-C. PCP - General 02/04/17 04/26/19 documented as of this encounter
--- OUTSIDE RECORDS SUMMARY | 2022-06-29 09:27 | XMS_ITS | Encounter Summary ---
:1985 Author Organization [facility] Address [address] [place] [address] Care Team Providers Name Role Phone Blaire Bundy P.A.-C. Primary Care Provider [phone] Encounter Details Date Type Department Care Team Description 03/14/2018 Orders Only Department of Gloria Johnson High Risk Medication Orthopedic Surgery in [facility] (Primary Dx) [place], [place] [address] [place] [address] [place] [phone] Social History Tobacco Use Types Packs/Day Years [...] or relatives? How often do you attend confucianist or orthodoxy More than 4 time s per year 07/09/2020 services? Do you belong to any clubs or organizations No 04/19/2019 such as confucianist groups, unions, fraternal or athletic groups, or [...] as of this encounter Visit Diagnoses Diagnosis High Risk Medication - Primary documented in this encounter Additional Health Concerns Assessment Noted Time PHQ-9 Depression Total Score: 7 04/07/2017 9:39 AM CDT documented as of this encounter Care Teams Butcher Head Relationship Specialty Start Date End Date Blaire Bundy P.A.-C. PCP - General 02/04/17 04/26/19 documented as of this encounter
--- OUTSIDE RECORDS SUMMARY | 2022-06-29 09:27 | XMS_ITS | Encounter Summary ---
:1985 Author Organization [facility] Address [address] [place] [address] Care Team Providers Name Role Phone Blaire Bundy P.A.-C. Primary Care Provider [phone] Reason for Visit Reason Comments Contraception Appointment Request (Routine) - Closed Specialty Diagnoses / Procedures Referred By Contact Refer red To Contact Obstetrics and Diagnoses PAR RE[facility] Gynecology Procedures OBG NEW FUNERAL HOME DIRECTOR Referral ID Status Reason Start Date Expiration Date Visits Requ ested Visits Authorized [id number] Closed 07/01/2018 07/01/2019 1 1 Encounter Details Date Type Department Care Team Description 07/20/2018 Comprehensive Visit Department of Leonora Villaseñor Inser tion Contraceptive Subdermal (Primary Dx); Obstetrics and MEAT HOSTESS, C.N.P. Morbid Obesity Body Mass Index 50.0-59.9 Adult (HCC) Gynecology in [address] [phone] Social History Tobacco Use Types Packs/Day [...] or relatives? How often do you attend jainism or faith More than 4 time s per year 07/09/2020 services? Do you belong to any clubs or organizations No 04/19/2019 such as jainism groups, unions, fraternal or athletic groups, or [...] Sign Reading Time Taken Comments Blood Pressure 140/90 07/20/2018 10:50 AM CEMENTER MACHINE Pulse - - Temperature - - Respiratory Rate - - Oxygen Saturation - - Inhaled Oxygen Concentration - - Weight 142 kg (313 lb 0.9 oz) 07/20/2018 10:50 AM CEMENTER MACHINE Height - - Body Mass Index 57.24 03/03/2018 6:59 AM CDT documented in this encounter Procedure Notes Leonora Villaseñor, JOSEFA, C.N.P. - 07/20/2018 11:00 AM CSTAssociated Order(s): SUBDERMAL CONTRACEPTIVE DEVICE Subdermal Contraceptive Device Date/Time: 07/20/2018 1:21 PM Performed by: LEONORA VILLASEÑOR Authorized by: LEONORA VILLASEÑOR Care team members present: Natasha Laguerre LPN Consent: Consent obtained: Written The benefits, risks and alternatives to the procedure and the potential need for sedation or anesthesia as well as the names, roles, and responsibilities of healthcare team members performing significant interventional tasks were discussed with the patient and/or decision maker.: yes The benefits, risks and alternatives to the possible need for blood products were discussed with the patient and/or decision maker.: Not addressed Bowlus protocol: All relevant documentation and testing were reviewed and available. All required blood products, implants, devices and/or special equipment were made available as applicable. The pre-procedure verification was conducted, the correct site was marked if required, and the procedural time out was conducted prior to performing the procedure and confirmed in a procedural pause.: yes Pre-procedure details: Assessment - reasonably exclude based on: PREG criteria and test Indication: contraception Appropriate hand hygiene, gown, cap, mask, protective eyewear, sterile gloves, skin preparation, sterile drape, and strict aseptic technique were utilized as applicable for the procedure.: yes Site preparation: Povidone-iodine Sedation/Anesthesia (see MAR for exact dosages): Anesthesia method: Local infiltration Local infiltrate type: Lidocaine 1% Amount of lidocaine 1% (mL): 1 mL Procedure details: Procedure: Insertion Implant location: Left Implant inserted per manufacture's directions: Yes Placement confirmed by: Provider and patient Site closed by usual method: Yes Site dressed and pressure bandage applied: Yes Implant type: 1 each etonogestrel 68 mg Post-procedure details: Procedure completed successfully: yes Complications: no apparent complications FUNERAL HOME DIRECTOR Subjective: Patient is here to discuss control options. She has used Depo in the past. She states that shewould like to consider something that is more long-term, does not need to think about it every 3 months. We reviewed all available options including pill, patch, ring, Depo, Nexplanon, IUDs. She is sexually active and wants to prevent at this time. Her questions are answered. After discussion, she has chosen the Nexplanon. LMP is 06/29/2018 She did have unprotected intercourse approximately 2 weeks ago. Negative qualitative HCG today. Objective: Well-woman, no acute distress Nexplanon inserted as noted above Assessment and plan: #1 Insertion of subdermal contraception After discussion and risks, benefits, alternatives, patient chose Nexplanon subdermal contraception for her control. She is aware that there is a small possibility that since she has had unprotected intercourse since her last menstrual period, that a test would not yet be positive. According to the [facility] quick start control care model she will repeat a test at home in 1-2 weeks, and return to clinic if a positive test. Backup control is advised for 1 week. She also has questions about weight loss surgery, weight loss. Consult is placed to [facility] in [place]. NTER MACHINE documented in this encounter Plan of Treatment Scheduled Procedures Name Priority Associated Diagnoses Date/Time COLONOSCOPY Diarrhea documented as of this encounter Procedures Procedure Name Priority Date/Time Associated Diagnosis Comme nts LA INS Routine 07/20/2018 11:00 Insertion Results for this NON-BIODEGRADABLE AM CEMENTER MACHINE Contraceptive procedure are in DRUG DEL Subdermal the results section. documented in this encounter Results LA INS NON-BIODEGRADABLE DRUG DEL (07/20/2018 11:00 AM CEMENTER MACHINE) Narrative MMODAL - 07/20/2018 11:00 AM CEMENTER MACHINE Leonora Villaseñor, JOSEFA, C.N.P. ? 07/20/2018 ??1:27 PM Subdermal Contraceptive Device Date/Time: 07/20/2018 1:21 PM Performed by: LEONORA VILLASEÑOR Authorized by: LEONORA VILLASEÑOR Care team members present: ??Natasha Laguerre LPN Consent: ??Consent obtained: ??Written ??The benefits, risks and alternatives to the procedure and the potential need for sedation or anesthesia as well as the names, roles, and responsibilities of healthcare team memb ers performing significant interventional tasks were discussed with the patient and/or decision maker.: yes ?The benefits, risks and alternatives to the possible need for blood products were discussed with the patient and/or decision maker.: ??Not addressed Bowlus protocol: ??All relevant documentation and testin g were reviewed and available. All required blood products, implants, devic es and/or special equipment were made available as applicable. The pre-pr ocedure verification was conducted, the correct site was marked i f required, and the procedural time out was conducted prior to performi ng the procedure and confirmed in a procedural pause.: yes ?? Pre-procedure details: ?? Assessment - reas onably exclude based on: ??PREG criteria and test ??Indication: contraception ?Appropriate hand hygiene, gown, cap, mask, protective eyewear, sterile gloves, skin preparation, sterile drape, and strict aseptic technique were utilized as applicable for the procedure .: yes ?Site preparation: ??Povidone-iodine Sedation/Anesthesia (see MAR for exact d osages): ??Anesthesia method: ??Local infiltrati on ??Local infiltrate type: ??Lidocaine 1% ??Amount of lidocaine 1% (mL): ??1 mL Procedure details: ??Procedure: ??Insertion ??Implant location: ??Left ??Implant inserted per manufacture's di rections: Yes ?Placement confirmed by: ??Provider an d patient ??Site closed by usual method: Yes ?Site dressed and pressure bandage roque lied: Yes ?Implant type: ??1 each etonogestrel 6 8 mg Post-procedure details: ??Procedure completed successfully: yes ?Complications: no apparent complicati ons ?? Leonora Villaseñor APRN CBrittaneyNBrittaneyPBrittaney OB GYNE ORDERABLES Performing Organization Address City/State/ZIP Code Phon e Number MMODAL MMODAL NA documented in this encounter Visit Diagnoses Diagnosis Insertion Contraceptive Subdermal - Prim shonna Morbid Obesity Body Mass Index 50.0-59.9 Adult (HCC) documented in this encounter Administered Medications Inactive Administered Medications - up to 3 most recent administrations Medication Order MAR Action Action Date Dose Rate Site etonogestrel 68 mg subdermal Given 07/20/2018 1:21 PM CEMENTER MACHINE 1 each implant 1 each (NEXPLANON) 1 each, subdermal, One-Time, Starting on Wed07/20/18 at 1321, For 1 dose documented in this encounter Additional Health Concerns Assessment Noted Time PHQ-9 Depression Total Score: 7 04/07/2017 9:39 AM CDT documented as of this encounter Care Teams It Support Engineer Relationship Specialty Start Date End Date Blaire Bundy PBrittaneyABrittaney-C. PCP - General 02/04/17 04/26/19 documented as of this encounter
--- OUTSIDE RECORDS SUMMARY | 2022-06-29 09:27 | XMS_ITS | Encounter Summary ---
:1985 Author Organization [facility] Address [address] [place] [address] Care Team Providers Name Role Phone Blaire Bundy P.A.-C. Primary Care Provider Encounter Details Date Type Department Care Team Description 04/13/2019 Clinical Communication Department of Dawna Madera Obstetrics and Adelita Reddy Gynecology in [address] [address] [place] [phone] Social History Tobacco Use Types Packs/Day Years [...] How often do you attend rastafari or mormonism More than 4 time s [...] documented as of this encounter Care Teams Instructional Services Librarian Relationship Specialty Start Date End Date Blaire Bundy P.A.-C. PCP - General 02/04/17 04/26/19 documented as of this encounter
--- OUTSIDE RECORDS SUMMARY | 2022-06-29 09:27 | XMS_ITS | Encounter Summary ---
:1985 Author Organization [facility] Address [address] [place] [address] Care Team Providers Name Role Phone Blaire Bundy P.A.-C. Primary Care Provider [phone] Reason for Visit Reason Comments Post-op Lap emma 03/03/18 Outpatient (Routine) - Closed Specialty Diagnoses / Procedures Referred By Contact Refer red To Contact General Surgery Diagnoses Gallstone With Common Bile Duct Stone par review Edd Moeller, [facility] Procedures GNS POST OP D.O. [address] [place] [address] Referral ID Status Reason Start Date Expiration Date Visits Requ ested Visits Authorized [id number] Closed 03/03/2018 03/03/2019 1 1 Encounter Details Date Type Department Care Team Description 03/16/2018 Office Visit Department of General Edd Moeller Ga llstone With Common Surgery in Jason Rivera D.O. Bile Duct Stone [place] [address] [facility] [address] [place] [address] [place] [phone] (Work) [phone] Social History Tobacco Use Types Packs/Day Years [...] How often do you attend judaism or synagogue More than 4 time s per year [...] Sign Reading Time Taken Comments Blood Pressure 140/61 03/16/2018 8:20 AM CDT Pulse 92 03/16/2018 8:20 AM CDT Temperature 36.2 ??C (97.2 ??F) 03/16/2018 8:20 AM CDT Respiratory Rate - - Oxygen Saturation - - Inhaled Oxygen Concentration - - Weight - - Height - - Body Mass Index - - documented in this encounter Progress Notes Edd Moeller D.O. - 03/16/2018 12:00 AM CDT SUBJECTIVE HISTORY OF PRESENT ILLNESS Mrs. Cooley is seen today in followup from her laparoscopic cholecystectomy. She is doing well and has no complaints. She is eating and drinking. Her bowels are moving well. Her pain is controlled without narcotics. She states that she only really missed 2 days of work. OBJECTIVE PHYSICAL EXAMINATION Her abdomen is soft. Her incisions are all dry and intact without evidence of infection or erythema. ASSESSMENT / PLAN #1 She is discharged from further general surgical care will be happy to reevaluate as needed Job ID: [id number] documented in this encounter Plan of Treatment Scheduled Procedures Name Priority Associated Diagnoses Date/Time COLONOSCOPY Diarrhea documented as of this encounter Visit Diagnoses Diagnosis Gallstone With Common Bile Duct Stone documented in this encounter Additional Health Concerns Assessment Noted Time PHQ-9 Depression Total Score: 7 04/07/2017 9:39 AM CDT documented as of this encounter Care Teams Plastics Seasoner Operator Relationship Specialty Start Date End Date Blaire Bundy P.A.-C. PCP - General 02/04/17 04/26/19 documented as of this encounter
--- OUTSIDE RECORDS SUMMARY | 2022-06-29 09:27 | XMS_ITS | Encounter Summary ---
:1985 Author Organization [facility] Address [address] [place] [address] Care Team Providers Name Role Phone Blaire Bundy P.A.-C. Primary Care Provider [phone] Reason for Referral Outpatient (Routine) - Closed Specialty Diagnoses / Procedures Referred By Contact Refer red To Contact Obstetrics and Diagnoses Section Delivery ([facility]) Harleen Josue D.O. [facility] Gynecology [address] [place] [address] Referral ID Status Reason Start Date Expiration Date Visits Requ ested Visits Authorized [id number] Closed 04/15/2019 04/14/2020 1 1 Reason for Visit Reason Comments Abdominal Pain pt brought in by ambulance w ith abd pain/contractions. pt states she has nexplanon in her arm and had no idea she was Auth/Cert Specialty Diagnoses / Procedures Referred By Contact Refer red To Contact Diagnoses Precipitate Labor ([facility]) Procedures x Referral ID Status Reason Start Date Expiration Date Visits Requ ested Visits Authorized [id number] 1 1 Encounter Details Date Type Department Care Team Description 04/12/2019 - Hospital Encounter [facility] Xin Vaughn Precipi briceño Labor ([facility]) (Primary Dx); [facility] Medical [place], [address] [facility] [place], [place] [address] [facility] [address] [place], [place] [phone] [address] (Work) [phone] Social History Tobacco Use Types Packs/Day Years [...] often do you attend oriental orthodox or latter day More than 4 time s per year [...] Sign Reading Time Taken Comments Blood Pressure 116/70 04/15/2019 3:55 PM CDT Pulse 91 04/15/2019 3:53 PM CDT Temperature 36.2 ??C (97.2 ??F) 04/15/2019 3:55 PM CDT Respiratory Rate 18 04/15/2019 3:55 PM CDT Oxygen Saturation 99% 04/15/2019 3:53 PM CDT Inhaled Oxygen Concentration - - Weight - - Height - - Body Mass Index - - documented in this encounter Discharge Summaries Harleen Josue D.O. - 04/15/2019 8:37 AM CDT DISCHARGE SUMMARY BRIEF OVERVIEW Discharge Provider: Xin Vaughn M.D. Primary Care Provider at Discharge: Primary Care Providers: Blaire Bundy P.ARavi (General) No address on file Primary Care [...] Case IDs Date Procedure Surgeon Location Status [id number] 04/12/19 SECTION Xin Vaughn M.D. [facility] OR [place] Review the Delivery Report for details. GA: Unknown GP: Risk Factors: Obesity No Care Asthma Obstetric Procedures this : None Labor Complications: Persistent Category 2;Precipitous Labor <3 Hours Delivery Details: 04/12/2019 10:10 AM with Apgars of 8 and 9 . Delivery Type: , Low Transverse Lacerations: Nabeel Clayton [[phone]] [place] Weight: 3.93 kg Feeding Method: both breast [...] due to habitus. She was placed on phototypesetting equipment monitor. She was tachycardic in the 110s-130s. It [...] Department Center 04/19/2019 10:00 AM Melany Montoya APRNCHRISTOPH OBG [facility] CELPRWZ 05/30/2019 11:00 AM Leonora Reaves APRN, C.N.P. 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 Continue to monitor closely. Xin Vaughn M.D. - 04/13/2019 7:35 AM CDT SUBJECTIVE Puneet Clayton is a 33 y.o. who is day 1 following a primary delivery. Feeding method for her : both breast and bottle feeding REVIEW OF [...] support, Discharge Planning, Resource/Education Discharge Planning: Other (Comment)([facility] information provided. Completed a 's Non-Paternity Statement. with Brendonevelin Clayton.) Who was present during the interview?: Patient, Other (comment), Family(Supportive cousin, Chloe shaw mother were present during this workers interview. 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 Plan todischarge to her mothers home in [place] upon discharge.) Anticipated Needs/Assistive Devices ADL Anticipated Needs: None Equipment Anticipated Needs: None Transportation Needs: Support from family(Has a car seat and her family will pick her up whenever medically stable. 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 Puneet's mother, Nichole helps with not using day care. Good family support forher and her children. Does not get child support. Plans to get both Shahzad & Keri [facility].) Income Source: Employed, Food stamps(Puneet reports that [...] Juarez. Puneet resides in an apartment in [place], [place] along with her two sons, Edy, age 11 years (will be in middle school this year) and son-Shahzad who will be two in June,.Puneet does not receive any child support for Edy or Shahzad. Puneet is legally to their father, Brendon Claytonof [place], [place]. This worker called, by request of Puneet, to Brendon and requested that he schedule a visit to complete the necessary paperwork for the 's Non- Paternity Statement.(scheduled at 11:00am April 14 with the [employer].) Brendon can be reached at [phone]. He lives in [place]. Puneet reports, and Brendon confirmed that they have been for one and a half years. Puneet's mother, Nichole Young is very support, along with a close cousin, Chloe who both reside within blocks of each other in [place]. Puneet also has two younger sisters, Leonora is a half sister and lives in [place], Xin is a step sister. All are reportedly supportive in her life. Puneet's dad is also a support and was watching Shahzad when she went into labor at the [facility] in [place]. Puneet's dad lives in [place], [place] and is supportive of her and the new baby. In discussing options, Puneet very clearly wants to parent this baby girl. Puneet also stated that she already loves Keri very much, as does the rest of the family, including her oldest brother, Edy. Puneet had recently applied for food stamps in [facility] and was denied because she was $10 over the income level. Puneet will apply again, now with an additional child on the case. Provided Puneet with WIC(Women, Infants & Children) Program, including documents that are needed for [facility] Services, [phone]. Puneet will call and set up an [...] He reportedly has two other children in [place] that he does not financially support or [...] verbalized understanding. Patient ambulated to exit with and family and left via private vehicle. [...] goals adequate for discharge. Patient discharging home. Cornelia Ritchie RBrittaneyN. - 04/15/2019 8:[address] Josue removed Nexplanon from patient's left upper inner arm. Cornelia Ritchie RBrittaneyN. - 04/14/2019 6:50 PM CDT Problem: PAIN - ADULT Goal: PT VERBALIZES/DEMONSTRATES ADEQUATE COMFORT LEVEL OR BASELINE 04/14/20191849 by Cornelia Ritchie, R.N. Outcome: Progressing [...] Ritchie, R.N. Outcome: Progressing 04/14/20191847 by Cornelia Ritchie R.N. Outcome: Progressing Problem: DISCHARGE PLANNING Goal: Patient discharge needs identified 04/14/2019 1850 by Cornelia Ritchie RBrittaneyNBrittaney Outcome: Progressing 04/14/20191847 by Cornelia Ritchie R.N. Outcome: Progressing Shift Goals: Clinical Goals [...] denies . She was transferred in bike [facility] ambulance having contractions last approximately 1 minute every minute and a half. Upon arrival to the ED bedside ultrasound was performed showing appears to be a full-term with heart tones in the 130-140's. Pelvic [...] being transferred to the Labor and delivery [facility] and accepted by .. Final Diagnoses: as of Apr 12 09 Precipitate Labor (HCC) Benry Garcia M.D. 04/12/19 0949 documented in this [...] <3 Hours Delivery Type: , Low Transverse [place] Weight: 3930 g 1 Minute 5 Minute 10 Minute Totals: 8 9 Maternal Breast Assessment Soft, comfortable, no change. Infant Input: Taking in 60 ml of similac formula via Lianne bottle every 2-3 hours, one 5 hour span last pm. Output: 7 voids/24 hours, 4 stools/24 hours, [...] 04/17 for weight check. Olivia Stark R.N. Hospital Course - [place] HarleenTyshawn antoine - 04/15/2019 8:20 AM CDT The patient [...] due to habitus. She was placed on phototypesetting equipment monitor. She was tachycardic in the 110s-130s. It [...] incision care. Note - Hoda Coker R.N., I.B.C.L.C. - 04/14/2019 10:30 AM CDT This note [...] demonstrated for use as needed. . . Infant Assessment Nada in color, transcutaneous bilirubin at 44 hours of age was less than 1, in the low risk zone. Baby is more distressed today with gas pains, instructed mom on use of Lianne bottle after the feeding even empty her to have enough sucking time at the feeding to adjust her gas pattern for comfort. Sometimes the pacifier is not satisfying her. Input: 10 feedings/24 hours, with volume of ready to feed formula not at 60 ml. Infant Output: 4 voids/24 hours, 3 stools/24 hours, [...] 5 Minute 10 Minute Totals: 8 9 Input: Similac formula via Lianne bottle, tolerating well. Taking up to 40-60 ml per feeding. Output: 2 voids/24 hours, 3 stools/24 hours, [...] Puneet Clayton 33 y.o. Yasir, Girl Puneet [[phone]] Delivery Providers Delivering clinician: Xin Vaughn M.D. 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 GA: [...] Section Ex pected: Gynecology Post Op Delivery (HCC) 019 (clinic) (Approximate), Expires: 04/15/2022 documented as [...] CBC without Differential (04/14/2019 11:00 AM CDT) [facility] Method Time Signature Hemoglobin 8.6 (L) 11.6 [...] Organization Address City/State/ZIP Code Phon e Number [facility] [place] [address] [facility] [facility] (ABNORMAL) CBC without Differential (04/14/2019 6:35 AM CDT) [facility]ue Method Time Signature Hemoglobin 8.2 (L) 11.6 [...] Organization Address City/State/ZIP Code Phon e Number [facility] [place] [address] [place] [facility] (ABNORMAL) CBC with Differential, Blood (04/13/2019 9:43 PM CDT) [facility] Cue Method Time Signature Hemoglobin 8.9 (L) 11.6 [...] Laterality Blood (Blood, 04/13/2019 9:43 PM 04/13/20 19 9:52 Venous) CDT PM CDT Harleen Josue D.O. LAB BLOOD ADD-ON Performing Organization Address City/State/ZIP Code Phon e Number [facility] [address] [place] [address] LAB Rubella Antibodies, IgG (04/13/2019 5:05 PM [...] - BLOOD ORD ERABLES Performing Organization Address [facility] Phon e Number [address] [place] [address] [facility] LAB Syphilis IgG Antibody with Reflex [...] D.O. LAB BLOOD ADD-ON Performing Organization Address [facility] Phon e Number [address] [place] [address] [facility] LAB (ABNORMAL) CMP (Comprehensive Metabolic Panel) [...] >=60 04/13/2019 Black/ mL/min/BSA 5:55 PM CDT Lao Comment: ----ADDITIONAL INFORMATION---- Estimated GFR calculated using [...] Organization Address City/State/ZIP Code Phon e Number [facility] [address] [place] [address] LAB (ABNORMAL) CBC with Differential, Blood (04/13/2019 5:05 PM CDT) [facility] Method Time Signature Hemoglobin 9.1 (L) 11.6 [...] Organization Address City/State/ZIP Code Phon e Number [facility] [address] [place] [address] LAB Transfuse Red Blood Cells (04/13/2019 12:21 [...] >=60 04/13/2019 Black/ mL/min/BSA 7:14 AM CDT Lao Comment: ----ADDITIONAL INFORMATION---- Estimated GFR calculated using [...] Organization Address City/State/ZIP Code Phon e Number [facility] [place] [place] [address] [place] [facility] (ABNORMAL) CBC without Differential (04/13/2019 6:35 AM CDT) [facility] Method Time Signature Hemoglobin 7.9 (L) 11.6 [...] Organization Address City/State/ZIP Code Phon e Number [facility] [address] [place] [address] [place] [facility] Phosphorus Inorganic (04/12/2019 11:36 PM CDT) athologist Signature Phosphorus 4.2 2.5 - 4.5 04/13/2019 (Inorganic), S mg/dL 1:07 AM CDT Specimen Anatomical Collection Method Collection Time Receive d Time (Source) Location / / Volume Laterality Blood (Blood, 04/12/2019 11:36 04/12/2019 Venous) PM CDT 11:40 PM CDT Xin Vaughn M.D. LAB BLOOD ADD-ON Performing Organization Address City/[facility]/ZIP Code Phon e Number [facility] [address] [place] [address] [place] [address] [place] [facility] Magnesium (04/12/2019 11:36 PM CDT) athologist Signature Magnesium, S 2.3 1.7 - 2.3 04/13/2019 mg/dL 12:30 AM CDT Specimen Anatomical Collection Method Collection Time Receive d Time (Source) Location / / Volume Laterality Blood (Blood, 04/12/2019 11:36 04/12/2019 Venous) PM CDT 11:40 PM CDT Xin Vaughn M.D. LAB BLOOD ADD-ON Performing Organization Address City/State/ZIP Code Phon e Number [facility] [place] [address] [place] LAB (ABNORMAL) CMP (Comprehensive Metabolic Panel) (04/12/2019 [...] >=60 04/13/2019 Black/ mL/min/BSA 12:30 AM CDT Lao Comment: ----ADDITIONAL INFORMATION---- Estimated GFR calculated using [...] Organization Address City/State/ZIP Code Phon e Number [facility] [address] [place] [address] LAB (ABNORMAL) CBC without Differential (04/12/2019 11:36 PM CDT) [facility] Method Time Signature Hemoglobin 9.3 (L) [...] Organization Address City/State/ZIP Code Phon e Number [facility] [address] [place] [address] [facility] US Lower Extremity Veins Bilateral [...] thrombus. Procedure Note Devin Moran M.D. - 08/22/2019Forma tting of this note might be different [...] CBC without Differential (04/12/2019 8:03 PM CDT) [facility] Method Time Signature Hemoglobin 9.6 (L) 11.6 [...] Organization Address City/State/ZIP Code Phon e Number [facility] [address] [place] [address] [place] [facility] (ABNORMAL) Protein/Creatinine Ratio, Random, Urine (04/12/2019 3:57 PM CDT) [facility] Method Time Signature Protein, Total, 85 mg/dL [...] Organization Address City/State/ZIP Code Phon e Number [facility] [address] [place] [address] [place] LAB (ABNORMAL) Drug Screen Urine (04/12/2019 3:57 PM CDT) athologist Signature Amphetamines, Negative Negative 04/12/2019 U 4:20 PM CDT Comment: ----ADDITIONAL INFORMATION---- Town Marshal's Cutoff: 500 ng/mL Barbiturates, U Negative Negative 04/12/2019 4:20 PM CDT Comment: ----ADDITIONAL INFORMATION---- Town Marshal's Cutoff: 200 ng/mL Benzodiazepines, U Negative Negative 04/12/2019 4:20 PM CD T Comment: ----ADDITIONAL INFORMATION---- Town Marshal's Cutoff: 150 ng/mL Buprenorphine, U Negative Negative 04/12/2019 4:20 PM CDT Comment: ----ADDITIONAL INFORMATION---- Town Marshal's Cutoff: 10 ng/mL Cocaine, U Negative Negative 04/12/2019 4:20 PM CDT Comment: ----ADDITIONAL INFORMATION---- Town Marshal's Cutoff: 150 ng/mL Methadone, U Negative Negative 04/12/2019 4:20 PM CDT Comment: ----ADDITIONAL INFORMATION---- Town Marshal's Cutoff: 200 ng/mL Methamphetamines, U Negative Negative 04/12/2019 4:20 PM C DT Comment: ----ADDITIONAL INFORMATION---- Town Marshal's Cutoff: 500 ng/mL Opiates, U Unconfirmed Positive (A) Negative 04/12/2019 4:2 0 PM CDT Comment: ----ADDITIONAL INFORMATION---- Town Marshal's Cutoff: 100 ng/mL Oxycodone, U Negative Negative 04/12/2019 4:20 PM CDT Comment: ----ADDITIONAL INFORMATION---- Town Marshal's Cutoff: 100 ng/mL Phencyclidine, U Negative Negative 04/12/2019 4:20 PM CDT Comment: ----ADDITIONAL INFORMATION---- Town Marshal's Cutoff: 25 ng/mL Propoxyphene, U Negative Negative 04/12/2019 4:20 PM CDT Comment: ----ADDITIONAL INFORMATION---- Town Marshal's Cutoff: 300 ng/mL Tetrahydrocannabinol, U Negative Negative 04/12/2019 4:20 PM CDT Comment: ----ADDITIONAL INFORMATION---- Town Marshal's Cutoff: 50 ng/mL Tricyclic Antidepressants, U Negative Negative 04/12/2019 4:20 PM CDT Comment: ----ADDITIONAL INFORMATION---- Town Marshal's Cutoff: 300 ng/mL THE ABOVE DRUG SCREEN PANEL IS FOR MED ICAL PURPOSES ONLY Specimen Anatomical Collection Method Collection Time Receive d Time (Source) Location / / Volume Laterality Urine (Urine, 04/12/2019 3:57 PM 04/12/20 19 3:57 Catheter) CDT PM CDT Xin Vaughn M.D. LAB URINE ORDERABLES Performing Organization Address City/State/ZIP Code Phon e Number [facility] [address] [place] [address] [place] [facility] (ABNORMAL) CBC without Differential (04/12/2019 3:48 PM CDT) [facility] Method Time Signature Hemoglobin 11.0 (L) 11.6 [...] Organization Address City/State/ZIP Code Phon e Number [facility] [address] [place] [address] [facility] [facility] HIV-1 p24 Ag, HIV-1/2 Ab ,P (04/12/2019 3:48 PM CDT) P athologist Signature HIV Ag/Ab Negative Negative 04/13/2019 [...] Organization Address City/State/ZIP Code Phon e Number [facility] [address] [facility] [place] [address] [facility] LAB (TTE) 2D ECHO DOPPLER COLOR (04/12/2019 3:38 PM CDT) [facility] Method Time Signature Ejection Fraction 64 MC [...] effusion. For the complete report, see the [employer] Documents below. See PDF For Result Narrative 04/12/2019 3:55 PM CDT For the complete report, see the Snip.ly Documents below. Final Impressions 1. Normal left ventricular chamber size. ??Calculated ejection fraction 64%. No regional wall motion abnormalities. 2. Normal right ventricular systolic fun ction. 3. Estimated right ventricular systolic pressure 30 mmHg. 4. No significant valvular heart disease . 5. Normal inferior vena cava size with n ormal inspiratory collapse (>50%). 6. No pericardial effusion. 7. No previous studies available for [employer]. Procedure Note Derek Booth M.D. - 04/12/2019Form atting of this note might be different from the original. For the complete report, see the Snip.ly Documents below. Final Impressions 1. Normal left ventricular chamber size. Calculated ejection fraction 64%. No regional wall motion abnormalities. 2. Normal right ventricular systolic fun ction. 3. Estimated right ventricular systolic pressure 30 mmHg. 4. No significant valvular heart disease . 5. Normal inferior vena cava size with n ormal inspiratory collapse (>50%). 6. No pericardial effusion. 7. No previous studies available for [employer]. Findings Bedside echo performed. Transthoracic ou treach [...] Documents below. See PDF For Result Xin Vaughn M.D. CV ECHO PROCEDURES CT Abdomen Pelvis [...] person on 04/12/2019 at approximately 1:55 PM [facility] Dr. Gould. Narrative 04/12/2019 2:20 PM CDT EXAM: CT [...] person on 04/12/2019 at approximately 1:55 PM [facility] Dr. Hernandez and Jose. Xin Vaughn M.D. [...] Negative for centr al pulmonary embolism. Xin CH CT PROCEDURES (ABNORMAL) Lactate (04/12/2019 1:19 PM CDT) P athologist Signature Lactate, P 3.3 (H) 0.5 - 2.2 04/12/2019 mmol/L 1:47 PM CDT Specimen Anatomical Collection Method Collection Time Receive d Time (Source) Location / / Volume Laterality Blood (Blood, 04/12/2019 1:19 PM 04/12/20 1:27 Venous) CDT PM CDT Xin Vaughn M.D. LAB BLOOD NON ADD-ON Performing Organization Address City/State/ZIP Code Phon e Number [facility] [address] [place] [address] [facility] [facility] (ABNORMAL) CMP (Comprehensive Metabolic Panel) [...] PM CDT eGFR-Black/Afri >90 >=60 04/12/2019 can Lao mL/min/BSA 1:49 PM CDT Comment: ----ADDITIONAL INFORMATION---- [...] Organization Address City/State/ZIP Code Phon e Number [facility] [address] [facility] [place] [address] [place] [facility] (ABNORMAL) CBC with Differential, Blood (04/12/2019 1:19 PM CDT) [facility] Method Time Signature Hemoglobin 10.2 (L) [...] M.D. LAB BLOOD ADD-ON Performing Organization Address City/[facility]/ZIP Code Phon e Number [address] [place] [address] [facility] Fibrinogen (04/12/2019 1:18 PM CDT) athologist Signature Fibrinogen, P [phone] - 513 04/12/2019 mg/dL 4:18 PM CDT Specimen Anatomical Collection Method Collection Time Receive d Time (Source) Location / / Volume Laterality Blood (Blood, 04/12/2019 1:18 PM 04/12/20 19 4:11 Venous) CDT PM CDT Xin Vaughn M.D. LAB BLOOD ADD-ON Performing Organization Address City/State/ZIP Code Phon e Number [address] [place] [address] [facility] PT (Prothrombin Time) with INR [...] Organization Address City/State/ZIP Code Phon e Number [facility] [place] [address] [facility] DX Abdomen Portable Anterior Posterior [...] . Xin Vaughn M.D. IMG DIAGNOSTIC IMAGING [facility] Pathology Services (04/12/2019 10:20 AM CDT) Component Value Ref Test Analysis Performed At [facility] Method Time Signature PATHOLOGY Patient Name: CLAYTON PUNEET Esteban LAGU[place] [facility] SERVICES MR#: [id number] [facility] Submitting Physician: XIN VAUGHN MD [id number] Specimen #[id number] Performing Lab: ??[facility] ? [address], [place] [address] Source: Placenta Gross Description Received is a [...] taken of the and maternal surfaces and patient account representative sections are subm itted as follows: [...] LAB SURG PATH ORDERABLES Performing Organization Address City/[facility]/ZIP Code Phon e Number [facility] [address] [address] Testing Location (04/12/2019 9:42 AM CDT) P athologist Signature Testing [facility] DEFAULT 04/12/2019 Location 9:47 AM CDT Specimen Anatomical Collection Method Collection Time Receive d Time (Source) Location / / Volume Laterality Blood 04/12/2019 9:42 AM 9 9:47 CDT AM CDT Xin Vaughn M.D. LAB BLOOD BANK TEST ORDERABL ES Performing Organization Address City/[facility]/ZIP Code Phon e Number [facility] [address] [place] [address] [place] [facility] Type and Screen (with reflex Antibody ID) (04/12/2019 9:42 AM CDT) [facility] Method Time Signature ABO Group A 04/12/2019 10:12 AM CDT Rh Type NEG 04/12/2019 10:13 AM CDT Antibody Screen NEG 04/12/2019 10:28 AM CDT Type & Screen 04/15/2019 04/12/2019 Expiration 23:59 10:28 AM CDT ELXM Eligible Y 04/12/2019 10:28 AM CDT Specimen Anatomical Collection Method Collection Time Receive d Time (Source) Location / / Volume Laterality Blood (Blood, 04/12/2019 9:42 AM 04/12/20 19 9:47 Venous) CDT AM CDT Xin Vaughn M.D. LAB BLOOD BANK TEST ORDERABL ES Performing Organization Address City/[facility]/ZIP Code Phon e Number [facility] [place] [address] [place] [facility] Hepatitis B Surface Antigen (04/12/2019 9:41 AM CDT) [facility] Method Time Signature HBs Antigen, Nonreactive Nonreactive 04/12/2019 S 2:59 PM CDT Comment: Biotin has been identified by the doug saucedo as a potential interfering substance. ??Higher concentr ations of biotin may be found in multivitamins, hair/nail supple ments, and workout supplements. ??If the result does not [facility] clinical observations, repeat testing after patient refrains fr om the use of supplements for at least 12 hours. Specimen (Source) Anatomical Collection Method Collection Time Re ceived Time Location / / Volume Laterality Blood (Blood, 04/12/2019 9:41 04/12/2019 2:19 Peripheral Draw) AM CDT PM CDT Xin Vaughn M.D. LAB MICROBIOLOGY - BLOOD ORD ERABLES Performing Organization Address City/State/ZIP Code Phon e Number [facility] [address] [place] [address] [place] [address] [facility] LAB HBc Total Ab, Serum (04/12/2019 9:41 AM CDT) athologist Signature HBc Total Ab, Negative Negative 04/12/2019 w/Reflex, S 2:59 PM CDT Comment: Biotin has been identified by the doug saucedo as a potential interfering substance. ??Higher concentr ations of biotin may be found in multivitamins, hair/nail supple ments, and workout supplements. ??If the result does not [facility] clinical observations, repeat testing after patient refrains fr om the use of supplements for at least 12 hours. Specimen (Source) Anatomical Collection Method Collection Time Re ceived Time Location / / Volume Laterality Blood (Blood, 04/12/2019 9:41 04/12/2019 2:19 Peripheral Draw) AM CDT PM CDT Xin Vaughn M.D. LAB MICROBIOLOGY - BLOOD ORD ERABLES Performing Organization Address City/[facility] Phon e Number [address], [place] [id number] [place] [address] LAB HBs Antibody, Serum (04/12/2019 9:41 AM CDT) athologist Signature HBs Antibody, Positive 04/12/2019 S 2:59 PM CDT Comment: Biotin has been identified by the dogu saucedo as a potential interfering substance. ??Higher concentr ations of biotin may be found in multivitamins, hair/nail supple ments, and workout supplements. ??If the result does not [facility] clinical observations, repeat testing after patient [...] Vaughn M.D. LAB MICROBIOLOGY - BLOOD ORD ERARISA Performing Organization Address City/State/ZIP Code Phon e Number [place] [id number] [facility] [place] [address] [facility] LAB documented in this encounter Visit Diagnoses Diagnosis Precipitate Labor (HCC) - Primary Precipitate Labor (HCC) Section Delivery (HCC) Care Insufficient (HCC) Section Delivery (HCC) documented in this encounter Admitting Diagnoses Diagnosis Precipitate [...] Given 04/14/2019 9:58 PM CDT 1,000 mg bupivacaine PF 0.25 % (2.5 mg/mL) Given 04/15/2019 8:10 AM CDT 2 5 mg Left Arm injection 25 mg (MARCAINE) 25 mg (10 mL), injection, Once, On 04/15/19 at 0800, For 1 dose ceFAZolin in dextrose (iso-osm) IVPB 2 New Bag 04/13/2019 2:47 AM CDT 2 g 100 mL/hr g (ANCEF) 2 g, intravenous, at 100 mL/hr, Administer over 30 Minutes, Every 8 hours, First dose on Wed04/12/19 at 1800, For 2 doses, Post-, Start within 8 hours of last IV dose. premix bag, Drug Monitoring Program: Pharmacist to adjust medication dosing based on indication and drug clearance factors., Indications: Prophylaxis, surgical New Bag 04/12/2019 6:02 PM CDT 2 g 100 mL/hr cefTRIAXone in dextrose (iso-osm) IVPB New Bag 04/15/2019 8:49 AM CDT 1 g 200 mL/hr 1 g (ROCEPHIN) 1 g, intravenous, at 200 mL/hr, Administer over 15 Minutes, Every 24 hours, First dose on 04/15/19 at 0815, For 1 dose, premix bag, Drug Monitoring Program: Pharmacist to adjust medication dosing based on indication and drug clearance factors., Indications: Obstetric or gynecological infection docusate sodium capsule 100 mg (COLACE) Given 04/15/2019 9:00 AM CDT 100 mg 100 mg, oral, 2 times daily, First dose on Wed04/12/19 at 2100, Post-, Do NOT crush or chew. Given 04/14/2019 9:58 PM CDT 100 mg Given 04/14/2019 8:55 AM CDT 100 mg enoxaparin injection 40 mg Given 04/15/2019 8:56 AM CDT 40 mg Left Upper Abdomen (LOVENOX) 40 mg, subcutaneous, Daily, First dose on Wed04/15/19 at 0900, For 1 dose iohexol 350 mg iodine/mL solution 200 mL Given 04/12/2019 1:44 P M CDT 200 mL (OMNIPAQUE) 200 mL, intravenous, Once in imaging, contrast, Starting on Wed04/12/19 at 1319, For 1 dose iron sucrose injection 200 mg of iron Given 04/15/2019 4:04 PM CDT 200 mg of iron (VENOFER) 200 mg of iron, intravenous, Every 24 hours, First dose on Wed04/14/19 at 1430, For 2 doses Given 04/14/2019 3:54 PM CDT 200 mg of iron magnesium sulfate 40 mg/mL in water 500 mL infusion - ADS Override Pull Starting on Wed04/12/19 at 1319, For 1 dose, Created b y cabinet override Premix ba grams in 500 mL magnesium sulfate 40 mg/mL in water New Bag 04/12/2019 1:55 PM CDT 2 g/hr 50 mL/hr 500 mL infusion 2 g/hr (50 mL/hr), intravenous, Continuous, Starting on Wed04/12/19 at 1430, Premix ba grams in 500 mL magnesium sulfate in water IVPB 4 g New Bag 04/12/2019 2:30 PM CDT 4 g 4 g, intravenous, Administer over 30 Minutes, Once, On Wed04/12/19 at 1415, For 1 dose, Administer loading dose then administer maintenance dose (see separate maintenance dose order). Upon initiation of loading dose, assess blood pressure, pulse, respirations every 15 minutes during the first hour. Assess deep tendon reflexes (DTRs) and clonus before loading dose, and every 15 minutes after loading dose until initiation of maintenance dose. Assess for headache, visual disturbances, level of consciousness before and after loading dose. premix bag metroNIDAZOLE in NaCl (iso-osm) New Bag 04/12/2019 11:32 PM CD T 500 mg 200 mL/hr IVPB 500 mg (FLAGYL) 500 mg, intravenous, at 200 mL/hr, Administer over 30 Minutes, Every 8 hours, First dose on Wed04/12/19 at 1400, For 2 doses, Post-, Start within 8 hours of last IV dose., Indications: Prophylaxis, surgical New Bag 04/12/2019 3:40 PM CDT 500 mg 200 mL/hr NaCl 0.9% infusion - ADS Override Pull Starting on Wed04/13/19 at 0725, For 1 dose, Created b y cabinet override NaCl 0.9% infusion New Bag 04/15/2019 8:48 [...] mL/hr oxyCODONE IR tablet 10 mg (ROXICODONE) Given 04/13/2019 4:20 PM CDT 10 mg 10 mg, oral, Every 4 hours PRN, severe pain or score 7-10 of 10, Starting on Wed04/12/19 at 1356, Post-, Begin 24 hours after neuraxial long-acting opiate given or if no neuraxial long-acting opiate used start immediately post-operative. Given 04/13/2019 11:11 AM CDT 10 mg Given 04/13/2019 6:06 AM CDT 10 mg oxyCODONE IR tablet 10 mg (ROXICODONE) 10 mg, oral, Every 4 hours PRN, severe p ain or score 7-10 of 10, Starting on Wed04/13/19 at 2047 oxyCODONE IR tablet 5 mg (ROXICODONE) Given 04/14/2019 1:12 PM CDT 5 mg 5 mg, oral, Every 4 hours PRN, moderate pain or score 4-6 of 10, Starting on Bryanna 04/13/19 at 2047 Given 04/14/2019 9:00 AM CDT 5 mg Given 04/14/2019 4:34 AM CDT 5 mg perflutren lipid microspheres injection (DEFINITY) intravenous, Once in imaging, contrast, Starting on We d 04/12/19 at 1311, For 1 dose, Gently [...] oral, Daily at bedtime, First dose on 04/12/19 at 2100, Post- Given 04/13/2019 8:46 PM CDT 17.2 mg Given 04/12/2019 9:20 PM CDT 17.2 mg sodium chloride 0.9 % flush 50 mL Given 04/12/2019 1:45 PM CDT 75 mL 50 mL, intravenous, Once in imaging, line care, Starting on Wed04/12/19 at 1319, For 1 dose sodium chloride 0.9 % injection 10 mL Given 04/12/2019 1:44 PM CDT 10 mL 10 mL, intravenous, Once in imaging, line care, Starting on Wed04/12/19 at 1319, For 1 dose documented in this encounter Active and Recently Administered Medications Times are shown in CDT. Scheduled Medication Order 04/13/2019 04/14/2019 04/15/2019 acetaminophen tablet 1,000 mg (TYLENOL) 0247 (Given - Provider: Denise Aranda R.N.)0839 (Given - Provider: Shiela Bernal R.N.)1502 (Given - Provider: Shiela Bernal R.N.)2044 (Given - Provider: Marsha Enamorado R.N.) 0206 (Given - Provider: Marsha Enamorado R.N.)0824 (Given - Provider: Cornelia Ritchie R.N.)1454 (Given - Provider: Cornelia Ritchie R.N.)2157 (Given - Provider: Danya Herndon R.N.) 0452 [...] (COLACE) 0837 (Given - Provider: Shiela Bernal R.N.)2045 (Given - Provider: Marsha Enamorado R.N.) 0855 (Given - Provider: Cornelia Ritchie R.N.)2158 (Given - Provider: Danya Herndon R.N.) 0900 (Given - Provider: Cornelia Ritchie R.N.) 100 mg, oral, 2 times daily, First dose on Wed04/12/19 at 2100, Post-, Do NOT crush or chew. enoxaparin injection 40 mg (LOVENOX) 0900 (Dose Auto H eld - Provider: Xin Vaughn M.D.) 899 (Dose Auto Held - Provider: Xin Vaughn M.D. ) 899 (Dose Auto Held - Provider: Xin Vaughn M.D.)2018 (Unheld by provider - Provider: Discharge Provider, Automatic) 40 mg, subcutaneous, Daily, First dose on Wed04/13/19 at 0900, P ost- enoxaparin injection 40 mg (LOVENOX) (COMPLETED) 0856 (Given - Provider: Cornelia Ritchie R.N.) 40 mg, subcutaneous, Daily, First dose on Wed04/15/19 at 0900, F or 1 dose iron sucrose injection 200 mg of iron (VENOFER) (COMPLETED) 1554 (Given - Provider: Corenlia Ritchie R.N.) 1604 (Given - Provider: Rajwinder Benito) 200 mg of iron, intravenous, Every 24 ho urs, First dose on Wed04/14/19 at 1430, For 2 doses sennosides tablet 17.2 mg (SENOKOT) 6 (Given - Prov ider: Marsha Enamorado R.N.) [...] mg of calcium, oral, Every 2 hour MD N, indigestion, Starting Wed04/12/19 at 1356, Post-, [...] 0740 (New Bag - Provider: Rai Bernal RRoverto - Comment: With blood)1020 (New Bag - Provider: Shiela Bernal R.N.) 0848 (New Bag - Provider: Cornelia Ritchie R.N. - Comment: Hung with IV antibiotic.) 20-500 mL/hr, intravenous, at 20-500 mL/ hr, As needed, Between Units of Blood Products, Starting Bryanna 04/13/19 at 0655, Infuse at the same [...] ain or score 7-10 of 10, Starting Wed04/12/19 at 1356, Post-, Begin 24 hours after [...] ain or score 7-10 of 10, Starting [facility] 04/13/19 at 2047 oxyCODONE IR tablet 5 mg (ROXICODONE)(Linked Group 1) 2106 (Given - Provider: Marsha Enamorado R.N.) 0049 (Given - Provider: Marsha Enamorado R.N.)0434 (Given - Provider: Marsha Enamorado R.N.)0900 (Given - Provider: Cornelia Ritchie R.N.)1312 (Given - Provider: Cornelia Ritchie R.N.) 5 mg, oral, Every 4 hours PRN, moderate pain or score 4-6 of 10, Starting Bryanna 04/13/19 at 2046 perflutren lipid microspheres injection (DEFINITY) intravenous, Once in imaging, contrast, Starting Wed04/12/19 at 1311, For 1 dose, Gently hand [...] of procedural exposur e indicates, Transfusion Medicine Laborroland patel will notify prescriber for need of additional dosage(s) (all doses will be in increments of 300 mcg). The prescriber will order additional dosages. simethicone chewable tablet 160 mg (MYLICON) 160 mg, oral, Every 6 hours PRN, flatule nce, for abdominal gas, Starting Wed04/12/19 at 1356, Post- witch donte pad 1 application (TUCKS) 1 application, topical, 3 times daily MD N, irritation, or pain., Starting Wed04/12/19 at 1356, Post-, To perineum - If ordered may use in combination with benzocaine-menthol topical spray (DERMOPLAST) Linked Groups Order Group 1: oxyCODONE IR tablet 5 mg (ROXICODONE)Jump to med 5 mg, oral, Every 4 hours PRN, moderate pain or score 4-6 of 10, Starting Bryanna 04/13/19 at 2046 Or oxyCODONE IR tablet 10 mg (ROXICODONE)Jump to med 10 mg, oral, Every 4 hours PRN, severe p ain or score 7-10 of 10, Starting Bryanna 04/13/19 at 2046 documented in this encounter Additional Health Concerns Assessment Noted Time PHQ-9 Depression Total Score: 7 04/07/2017 9:39 AM CDT documented as of this encounter Care Teams Leather Whitener Relationship Specialty Start Date End Date Blaire Bundy P.A.-C. PCP - General 02/04/17 04/26/19 documented as of this encounter
--- OUTSIDE RECORDS SUMMARY | 2022-06-29 09:27 | XMS_ITS | Encounter Summary ---
:[address] [facility] Address [address] [place] [address] Care Team Providers Name Role Phone Blaire Bundy P.A.-C. Primary Care Provider [phone] Encounter Details Date Type Department Care Team Description 05/11/2018 Immunization Department of Blaire Bundy P.A.-C. [address] [place], [place] [id number] Need Vaccine Pediatrics in [place] Zeinab Gong, L.P.N. [address] [place] [address] Immunization ([place], [place] Dx) [address] [place] [address] Social History Tobacco Use Types [...] How often do you attend religion or oriental orthodox More than 4 time s per year [...] documented as of this encounter Progress Notes Zeinab Gong L.P.N. - 05/11/2018 9:40 AM CDT Patient here to update flu vaccine, declined VIS. RN protocol completed. documented in this encounter Plan of Treatment Scheduled Procedures Name Priority Associated Diagnoses Date/Time COLONOSCOPY Diarrhea documented as of this encounter Visit Diagnoses Diagnosis Need Vaccine Immunization - Primary documented in this encounter Additional Health Concerns Assessment Noted Time PHQ-9 Depression Total Score: 7 04/07/2017 9:39 AM CDT documented as of this encounter Care Teams Tc Operator Relationship Specialty Start Date End Date Blaire Bundy P.A.-C. PCP - General 02/04/17 04/26/19 documented as of this encounter
--- OUTSIDE RECORDS SUMMARY | 2022-06-29 09:27 | XMS_ITS | Encounter Summary ---
:1985 Author Organization [facility] Address [address] [place] [address] Care Team Providers Name Role Phone Blaire Bundy P.A.-C. Primary Care Provider [phone] Encounter Details Date Type Department Care Team Description 07/21/2018 Orders Only Department of Leonora Reaves, Morbid Obesi ty Body Obstetrics and SOLAR CREW MEMBER, C.N.P. Mass Index 50.0-59.9 Gynecology in [facility] [address] Adult (HCC) ([place], [place] Dx) [address] [place] [address] [place], [place] [phone] [address] (Work) [phone] Social History Tobacco Use Types Packs/Day Years [...] How often do you attend methodist or druze More than 4 time s per year [...] as of this encounter Visit Diagnoses Diagnosis Morbid Obesity Body Mass Index 50.0-59.9 Adult ([facility]) - Primary documented in this encounter Additional Health Concerns Assessment Noted Time PHQ-9 Depression Total Score: 7 04/07/2017 9:39 AM CDT documented as of this encounter Care Teams Electric Motor And Generator Assembler Relationship Specialty Start Date End Date Blaire Bundy P.A.-C. PCP - General 02/04/17 04/26/19 documented as of this encounter
--- OUTSIDE RECORDS SUMMARY | 2022-06-29 09:28 | XMS_ITS | Encounter Summary ---
:1985 Author Organization [facility] Address [address] [place] [address] Care Team Providers Name Role Phone Blaire Bundy P.A.-C. Primary Care Provider [phone] Reason for Referral Outpatient (Routine) - Closed Specialty Diagnoses / Procedures Referred By Contact Refer red To Contact Diagnoses Gallstone With Common Bile Duct Stone Edd Moeller D.O. [facility] [address] [address] Referral ID Status Reason Start Date Expiration Date Visits Requ ested Visits Authorized [id number] Closed 02/09/2018 02/09/2019 1 1 Reason for Visit Reason Comments Cholelithiasis Outpatient (Routine) - Closed Specialty Diagnoses / Procedures Referred By Contact Refer red To Contact General Surgery Diagnoses Gallstone With Common Bile Duct Stone Blaire Bundy [facility] [place] doyle P.A.-C. [address] [place], [place] [address] Referral ID Status Reason Start Date Expiration Date Visits V isits Requested Authorized [id number] Closed Specialty 11/19/2017 05/18/2018 1 1 Services Required Encounter Details Date Type Department Care Team Description 02/09/2018 Comprehensive Visit Department of Juan Moeller Posthemorrhagic Acute (Primary Dx); General Surgery in Edd Gomez, Gallstone With Common Bile Duct Stone Marko Maxwell D.O. [address] [facility] [address] [place] [phone] Social History Tobacco Use Types Packs/Day Years Used Date Smoking Tobacco: Former Smokeless Tobacco: Never Alcohol Use Standard Drinks/Week Comments No 0 (1 standard drink = 0.6 oz pure alcoho l) Alcohol Habits Answer Date Recorded How often [...] How often do you attend voodoo or amish More than 4 time s [...] Sign Reading Time Taken Comments Blood Pressure 117/57 02/09/2018 2:28 PM CDT Pulse 97 02/09/2018 2:28 PM CDT Temperature 36.5 ??C (97.7 ??F) 02/09/2018 2:28 PM CDT Respiratory Rate - - Oxygen Saturation - - Inhaled Oxygen Concentration - - Weight - - Height - - Body Mass Index - - documented in this encounter Consult Notes Edd Moeller D.O. - 02/09/2018 12:00 AM CDT SUBJECTIVE REASON FOR CONSULT Cholelithiasis and a history of choledocholithiasis. HISTORY OF PRESENT ILLNESS She presented in October of this year with a common bile duct obstruction. She underwent an ERCP whichwas complicated by a GI bleed requiring transfusions. She has since recovered from that. She still continues to have intermittent epigastric abdominal pain with some bloating and back pain but certainly no pain suggestive of acute cholecystitis or choledocholithiasis. She would like to remove her gallbladder at the next opportunity. ALLERGIES/CONTRAINDICATIONS Penicillin. CURRENT MEDICATIONS Tylenol as needed. Prilosec 40 mg daily. MEDICAL HISTORY Significant for GERD and the choledocholithiasis, probable history of obstructive sleep apnea. She denies history of coronary artery disease, myocardial infarction, congestive heart failure, cardiac catheterization, rheumatic fever, diabetes, hypertension, seizures, strokes, hepatitis, cancers or kidney disease. SURGICAL HISTORY Laparoscopic appendectomy 09/08/2017. ERCP SOCIAL HISTORY Patient smokes 1/2 pack of cigarettes per day. She denies alcohol use. She works at [employer] in [place]. OBJECTIVE PHYSICAL EXAMINATION General: Ms. Cooley is a 32-year-old, well-developed, well-nourished, morbidly obese female. She is alert and oriented to person, place, and time. He is reactive and stable. Responds appropriately to questions. Her appearance is consistent with stated age. Vital Signs: Temperature 36.5, pulse 97, blood pressure 117/67. Height 157.5 cm. Weight 142.5 kg. BMI is 57.4. HEENT: Essentially unremarkable. Pupils are equal and reactive to light and accommodation. Extraocular muscles intact. Tongue and uvula midline. Tonsils are enlarged but not inflamed. No exudate noted. Neck: Supple. No palpable lymphadenopathy. Trachea is midline. Thyroid is not enlarged. No carotid bruits auscultated. Heart: Rate and rhythm are regular without clicks or murmurs. Lungs: Clear to auscultation bilaterally without rales, rhonchi, or wheeze. Abdomen: Soft and obese. Bowel sounds are present all 4 quadrants. There is no pain, tenderness, guarding, or rebound. There is no palpable mass or organomegaly. DIAGNOSTICS Most recent laboratories from 11/19/2017 were reviewed and showed a hemoglobin and hematocrit of 8.6and 27.7 respectively. Electrolytes within normal limits. Bilirubin was normal at 0.8. Imaging: Ultrasound on 11/08/2017 showed cholelithiasis with no evidence of acute cholecystitis. She did have and a dilated common bile duct but this was prior to her ERCP. Hepatic steatosis was also suspected. ASSESSMENT / PLAN #1 Chronic cholecystitis and cholelithiasis #2 History of choledocholithiasis #3 Morbid obesity #4 History of GI bleed following her ERCP RECOMMENDATIONS: Laparoscopic cholecystectomy with intraoperative cholangiogram. Patient understands the nature of the procedure. She understands risks and complications including infection, bleeding, injury to the bowel, the liver, and the bile duct. She gives her informed consent. This will be scheduled in the near future. Job ID: [id number]/[id number] documented in this encounter Plan of Treatment Scheduled Procedures Name Priority Associated Diagnoses Date/Time COLONOSCOPY Diarrhea Scheduled Referrals Name Type Priority Associated Order Schedule Diagnoses Pre Operative Outpatient Referral Routine Gallstone With Expec pipe: Evaluation RAY nurse Common Bile Duct consult (clinic) Stone (Approximat e), Expires: 02/09/2021 documented as of this encounter Results (ABNORMAL) CBC with Differential, Blood (02/18/2018 10:42 AM CDT) [facility] Method Time Signature Hemoglobin 11.3 (L) 11.6 - 02/18/2018 [facility] 15.0 g/dL 10:54 AM T [facility] Hematocrit 37.3 35.5 - 02/18/2018 [facility] 44.9 % 10:54 AM T [facility] Erythrocytes 4.95 3.92 - 02/18/2018 [facility] 5.13 10:54 AM T [facility] x10(12)/L [facility] MCV 75.4 (L) 78.2 - 02/18/2018 [facility] 97.9 fL 10:54 AM [facility] RBC Distrib Width 15.3 12.2 - 02/18/2018 [facility] 16.1 % 10:54 AM T [facility] Platelet Count 285 157 - 371 02/18/2018 [facility] x10(9)/L 10:54 AM [facility] Leukocytes 7.0 3.4 - 9.6 02/18/2018 [facility] x10(9)/L 10:54 AM [facility] Neutrophils 4.71 1.56 - 02/18/2018 [facility] 6.45 10:54 AM CDT [facility] x10(9)/L [facility] Lymphocytes 1.76 0.95 - 02/18/2018 [facility] 3.07 10:54 AM CDT [facility] x10(9)/[facility] Monocytes 0.35 0.26 - 02/18/2018 [facility] 0.81 10:54 AM CDT [facility] x10(9)/[facility] Eosinophils 0.18 0.03 - 02/18/2018 [facility] 0.48 10:54 AM CDT [facility] x10(9)/L [facility] Basophils 0.03 0.01 - 02/18/2018 [facility] 0.08 10:54 AM CDT [facility]ALTH x10(9)/L [facility] Specimen Anatomical Collection Method Collection Time Receive d Time (Source) Location / / Volume Laterality Blood (Blood, 02/18/2018 10:42 02/18/2018 Venous) AM CDT 10:46 AM CDT Edd Moeller D.O. LAB BLOOD ADD-ON Performing Organization Address City/State/[facility] Code Phon e Number [facility] [address] [place] [address] LAB documented in this encounter Visit Diagnoses Diagnosis Anemia Posthemorrhagic Acute (Blood Loss Anemia) - Primary Gallstone With Common Bile Duct Stone documented in this encounter Additional Health Concerns Assessment Noted Time PHQ-9 Depression Total Score: 7 04/07/2017 9:39 AM CDT documented as of this encounter Care Teams Animal Control Supervisor Relationship Specialty Start Date End Date Blaire Bundy P.A.-C. PCP - General 02/04/17 04/26/19 documented as of this encounter
--- OUTSIDE RECORDS SUMMARY | 2022-06-29 09:28 | XMS_ITS | Encounter Summary ---
:1985 Author Organization [facility] Address [address] [place] [address] Care Team Providers Name Role Phone Blaire Bundy P.A.-C. Primary Care Provider [phone] Reason for Visit Outpatient (Routine) - Closed Specialty Diagnoses / Procedures Referred By Contact Refer red To Contact Diagnoses Gallstone With Common Bile Duct Stone Edd Moeller D.O. [address] [address] Referral ID Status Reason Start Date Expiration Date Visits Requ ested Visits Authorized [id number] Closed 02/09/2018 02/09/2019 1 1 Encounter Details Date Type Department Care Team Description 02/11/2018 Telemedicine Department of General Edd Moeller eamargaritathetic Medical Exam (Primary Dx); Surgery in Jason Rivera D.O. Gallstone With Common Bile Duct Stone [address] [place] [address] [place], [place] [phone] (Work) [phone] Social History Tobacco Use Types Packs/Day Years [...] How often do you attend samaritan or scientology More than 4 time s per year 07/09/2020 services? Do you belong to any clubs or organizations No 04/19/2019 such as samaritan groups, unions, [employer] or athletic groups, or school groups? How [...] documented as of this encounter Progress Notes Eliane French RBrittaneyN. - 02/11/2018 10:00 AM CDT Surgical Nurse Outsole Rounder Skin Alert Assessment: Complete this section only if the patient is greater than or equal to 18 y/o BMI <19 or >40: yes; BMI=57 Documented risk factors that indicate higher risk for pressure ulcer? no Do you have impaired sensation? no Is patient chair-bound or unable to reposition themselves? no Anesthesia Risk Assessment: Do you have an implanted cardiac device? no Do you have difficulties lying flat? no Do you have any scientology or other objection to having a blood transfusion? no Teaching: Preoperative education was done with (x) patient (_) parent (_) other. _ It was confirmed the patient/family member had received the following preoperative education sheets:Checklist For Surgical Patients ([id number]),???Surgical Site Infections ([id number]), Speak Up: Antibiotics ([id number]), ???Smoke Free, Advice for patients and visitors?? ([id number]), ???Your Guide to Pain Management ([id number]), Managing Your Pain After Surgery ([id number]) with the ???Healing Arts?? pamphlet ([id number]), and ???Appointments Required Before Your Surgery?? ([facility] [id number]). These were reviewed in detail. Additional Pamphlets also reviewed: (_)?? Parental Presence in the Operating Room?? ([facility]:Order Sets/Surgery/Home Instructions/Tonsillectomy Teaching Checklist/PE Tubes Teaching Sheet 02/21/12) (_) Perioperative Care and Preoperative Teaching: Tonsillectomy and Adenoidectomy (no mc#) (_) Perioperative Care and Preoperative Teaching: ???Myringotomy with Ear Tube Placement?? (no mc#) (_) ???Pre-op Teaching for Same Day Surgery-Procedure Room with Local Anesthesia?? (no mc#) Patient/Parent is ready to learn, no apparent learning barriers were identified. Reviewed diagnosis and treatment plan; patient/parent verbalized understanding through teach back. All questions were answered. Patient/Parent has contact information and understands the need to call with any questions orconcerns. Post op appointments: 1st po with surgeon or physician assistant loan processor: (x) made (_)TBD (_)Audiology appointment (PE tubes), (_)2 days post op ultrasound to r/o DVT (VNUS closure) documented in this encounter Plan of Treatment Scheduled Procedures Name Priority Associated Diagnoses Date/Time COLONOSCOPY Diarrhea documented as of this encounter Visit Diagnoses Diagnosis Preanesthetic Medical Exam - Primary Gallstone With Common Bile Duct Stone documented in this encounter Additional Health Concerns Assessment Noted Time PHQ-9 Depression Total Score: 7 04/07/2017 9:39 AM CDT documented as of this encounter Care Teams Terminal Supervisor Relationship Specialty Start Date End Date Blaire Bundy P.A.-C. PCP - General 02/04/17 04/26/19 documented as of this encounter
--- OUTSIDE RECORDS SUMMARY | 2022-06-29 09:28 | XMS_ITS | Encounter Summary ---
:1985 Author Organization [facility] Address [address] [place] [address] Care Team Providers Name Role Phone Blaire Bundy P.A.-C. Primary Care Provider Encounter Details Date Type Department Care Team Description 11/12/2017 Ancillary Procedure Department of Gastroenterology Social History Tobacco Use Types Packs/Day Years [...] How often do you attend protestant or confucianism More than 4 time s [...] Procedure Name Priority Date/Time Associated Comments Diagnosis GASTROENTEROLOGY IMAGE Routine 11/12/2017 12:15 R esults for this EXAM PM CDT procedure are i n the results section. documented in this encounter Results Upper GI endoscopy-Gastroenterology Image Exam (11/12/2017 12:15 PM CDT) Specimen (Source) Anatomical Location Collection Method / Collectio n Time Received Time / Laterality Volume Narrative IIMS - 04/09/2022 8:13 PM CDT This order has been created and auto-finalized to support the import of images acquired without order. The clini huma documentation to support these images can be found on the encounter fidelina t produced images. Provider Not In System IMG NON RAD IMAGING PROCEDUR ES Performing Organization Address City/State/ZIP Code Phon e Number IIMS IIMS NA documented in this encounter Visit Diagnoses Not on filedocumented in this encounter Additional Health Concerns Assessment Noted Time PHQ-9 Depression Total Score: 7 04/07/2017 9:39 AM CDT documented as of this encounter Care Teams Tier Over Relationship Specialty Start Date End Date Blaire Bundy PGladys. PCP - General 02/04/17 04/26/19 documented as of this encounter
--- OUTSIDE RECORDS SUMMARY | 2022-06-29 09:28 | XMS_ITS | Encounter Summary ---
:1985 Author Organization [facility] Address [address] [place] [address] Care Team Providers Name Role Phone Blaire Bundy P.A.-C. 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 [address] [place] [address] Referral ID Status Reason Start Date Expiration Date Visits Requ ested Visits Authorized [id number] Closed 02/11/2018 02/11/2019 1 1 Encounter Details Date Type Department Care Team Description 02/11/2018 Orders Only Department of General Keo, Lydia Ca lculus Of Bile Duct Surgery in [facility] Without Cholangitis [facility] [place] [facility] With [address] [place], [place] Obstruction [place] [address] Dx) [phone] Social History Tobacco Use Types Packs/Day [...] How often do you attend pentecostal or mosque More than 4 time s [...] Type Priority Associated Diagnoses Order S chedule Preoperative Outpatient Routine Calculus Of Bile Duct Expect ed: Evaluation RAY Referral Without Cholangitis 2017 Consult (Clinic) Or Cholecystitis With (A pproximate), Obstruction Expires: 02/11/2021 documented as of this encounter Visit Diagnoses Diagnosis 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 - Primary documented in this encounter Additional Health Concerns Assessment Noted Time PHQ-9 Depression Total Score: 7 04/07/2017 9:39 AM CDT documented as of this encounter Care Teams Cigarette Seller Relationship Specialty Start Date End Date Blaire Bundy P.A.-C. PCP - General 02/04/17 04/26/19 documented as of this encounter
--- OUTSIDE RECORDS SUMMARY | 2022-06-29 09:28 | XMS_ITS | Encounter Summary ---
:1985 Author Organization [facility] Address [address] [place] [address] Care Team Providers Name Role Phone Blaire Bundy P.A.-C. Primary Care Provider Encounter Details Date Type Department Care Team Description 11/12/2017 Hospital Encounter HX NO MAPPING Nichole Lerma [address] [place], [place] [phone] Social History Tobacco Use Types Packs/Day Years [...] How often do you attend methodist or protestant More than 4 time s [...] every 6 (six) tablet hours as needed. HYDROcodone-acetaminophen Take 1 tablet by 0 11/15/2017 (for_NORCO) 5-325 mg per mouth every 6 (six) tablet hours as needed for pain. documented as of this encounter Plan of Treatment Scheduled Procedures Name Priority Associated Diagnoses Date/Time COLONOSCOPY Diarrhea documented as of this encounter Visit Diagnoses Not on filedocumented in this encounter Additional Health Concerns Assessment Noted Time PHQ-9 Depression Total Score: 7 04/07/2017 9:39 AM CDT documented as of this encounter Care Teams Housekeeping Department Worker Relationship Specialty Start Date End Date Blaire Bundy P.A.-C. PCP - General 02/04/17 04/26/19 documented as of this encounter
--- OUTSIDE RECORDS SUMMARY | 2022-06-29 09:28 | XMS_ITS | Encounter Summary ---
:1985 Author Organization [facility] Address [address] [place] [id number] Care Team Providers Name Role Phone Blaire Bundy P.A.-C. Primary Care Provider Encounter Details Date Type Department Care Team Description 11/12/2017 - Hospital Encounter HX RST Cassidy Sandhu, 11/13/2017 Sera, M.S. [address] [place] [phone] (Wo rk) Social History Tobacco Use Types [...] or relatives? How often do you attend hinduism or anglican More than 4 time s per year 07/09/2020 services? Do you belong to any clubs or organizations No 04/19/2019 such as hinduism groups, unions, fraternal or athletic groups, or [...] Sign Reading Time Taken Comments Blood Pressure 133/93 11/13/2017 11:31 NIBP - Value fr om AM CDT Chartplus. Pulse 115 11/13/2017 11:31 Value from Yoly tplus. AM CDT Temperature - - Respiratory Rate 16 11/13/2017 11:32 Value from Sammi rtplus. AM CDT Oxygen Saturation - - Inhaled Oxygen - - Concentration Weight 142 kg (313 lb 15 11/12/2017 1:32 PM Vital si gn result oz) CDT from CDM. Height 157.5 cm (5' 2.01) 11/12/2017 1:32 PM Vital sign result CDT from CDM. Body Mass Index 57.4 11/12/2017 1:32 PM CDT documented in this encounter Medications at Time [...] Name Priority Date/Time Associated Comments Diagnosis CBC WITH DIFFERENTIAL, B Routine 11/13/2017 7:23 Results for this AM CDT procedure are i n the results section. CBC WITH DIFFERENTIAL, B Routine 11/12/2017 7:48 Results for this PM CDT procedure are i n the results section. ABORH, RBC Routine 11/12/2017 11:55 Results for this AM CDT procedure are i n the results section. ANTIBODY SCREEN, B Routine 11/12/2017 11:55 Resul ts for this AM CDT procedure are i n the results section. CBC WITHOUT Routine 11/12/2017 11:42 Results for this DIFFERENTIAL, B AM CDT procedure ar e in the results section. ALANINE AMINOTRANSFERASE Routine 11/12/2017 11:42 Results for this (ALT), S/P AM CDT procedure are i n the results section. ASPARTATE Routine 11/12/2017 11:42 Results for this AMINOTRANSFERASE (AST), AM CDT proc edure are in S/P the results section. PHOSPHORUS (INORGANIC), Routine 11/12/2017 11:42 Results for this S AM CDT procedure are i n the results section. ALKALINE PHOSPHATASE, Routine 11/12/2017 11:42 Re sults for this S/P AM CDT procedure are i n the results section. MAGNESIUM, S Routine 11/12/2017 11:42 Results for this AM CDT procedure are i n the results section. CALCIUM, IONIZED, S/B Routine 11/12/2017 11:42 Re sults for this AM CDT procedure are i n the results section. BILIRUBIN DIRECT, S/P Routine 11/12/2017 11:42 Re sults for this AM CDT procedure are i n the results section. BILIRUBIN, TOT, S/P Routine 11/12/2017 11:42 Resu lts for this AM CDT procedure are i n the results section. BASIC METABOLIC PANEL, Routine 11/12/2017 11:42 R esults for this S/P AM CDT procedure are i n the results section. documented in this encounter Results (ABNORMAL) CBC with Differential (11/13/2017 7:23 AM CDT) [facility] Method Time Signature Hemoglobin 8.2 (L) 12.0 - [facility] 15.5 G/DL [facility] Hematocrit 26.0 (L) 34.9 - [facility] 44.5 % [facility] RBC Distrib 15.2 11.9 - [facility] Width 15.5 % [facility] Platelet Count 229 150 - 450 [facility] X10(9)/L [facility] Leukocytes 10.1 3.5 - [facility] 10.5 LABORATORIES - X10(9)/L [facility] Neutrophils 7.11 (H) 1.70 - [facility] 7.00 LABORATORIES - X10(9)/L [facility] Lymphocytes 2.38 0.90 - [facility] 2.90 LABORATORIES - X10(9)/L [facility] Monocytes 0.52 0.30 - [facility] 0.90 LABORATORIES - X10(9)/L [facility] Erythrocytes 2.93 (L) 3.90 - [facility] 5.03 LABORATORIES - X10(12)/L [facility] MCV 88.7 81.6 - [facility] 98.3 [place] LABORATORIES - [facility] Eosinophils 0.03 (L) 0.05 - [facility] 0.50 LABORATORIES - X10(9)/L [facility] Basophils <0.03 0.00 - [facility] 0.30 LABORATORIES - X10(9)/L [facility] Specimen Anatomical Collection Method Collection Time Receive d Time (Source) Location / / Volume Laterality 11/13/2017 7:23 AM 8 7:23 CDT AM CDT Historical Provider LAB BLOOD ADD-ON Performing Organization Address City/State/ZIP Code Phon e Number [facility]IES - [address] [place], [place] [address] [facility] (ABNORMAL) CBC with Differential (11/12/2017 7:48 PM CDT) [facility] gist Method Time Signature Hemoglobin 8.6 (L) 12.0 - [facility] 15.5 G/DL LABORATORIES - [facility] Hematocrit 26.2 (L) 34.9 - [facility] 44.5 % LABORATORIES - [facility] Erythrocytes 3.04 (L) 3.90 - [facility] 5.03 LABORATORIES - X10(12)/L [facility] MCV 86.2 81.6 - [facility] 98.3 [place] LABORATORIES - [facility] RBC Distrib 15.0 11.9 - [facility] Width 15.5 % LABORATORIES - [facility] Platelet Count 210 150 - 450 [facility] X10(9)/L LABORATORIES - [facility] Leukocytes 10.3 3.5 - [facility] 10.5 LABORATORIES - X10(9)/L [facility] Neutrophils 9.08 (H) 1.70 - [facility] 7.00 LABORATORIES - X10(9)/L [facility] Lymphocytes 1.03 0.90 - [facility] 2.90 LABORATORIES - X10(9)/L [facility] Monocytes 0.17 (L) 0.30 - [facility] 0.90 LABORATORIES - X10(9)/L [facility] Eosinophils <0.03 (L) 0.05 - [facility] 0.50 LABORATORIES - X10(9)/L [facility] Basophils <0.03 0.00 - [facility] 0.30 LABORATORIES - X10(9)/L [facility] Specimen Anatomical Collection Method Collection Time Receive d Time (Source) Location / / Volume Laterality 11/12/2017 7:48 PM 8 7:48 CDT PM CDT Venu Fernandez M.D., M.S. LAB BLOOD ADD-ON Performing Organization Address City/[facility]/ZIP Code Phon e Number [facility]IES - [address] [place], [place] [address] [facility] ABORh, RBC (11/12/2017 11:55 AM CDT) P athologist Signature HXABO/RH BLOOD A NEG [facility] TYPE LABORATORIES - [facility] Specimen (Source) Anatomical Collection Method Collection Time Re ceived Time Location / / Volume Laterality 11/12/2017 11:55 AM CDT Historical Provider LAB BLOOD BANK TEST ORDERABL ES Performing Organization Address [facility] Code Phon e Number [facility] - [address] [place], [place] [address] [facility] Antibody Screen, RBC (11/12/2017 11:55 AM CDT) Patholo gist Method Time Signature Antibody Negative [facility] Screen [facility]ATORIES [facility] Specimen (Source) Anatomical Collection Method Collection Time Re ceived Time Location / / Volume Laterality 11/12/2017 11:55 AM CDT Historical Provider LAB BLOOD BANK TEST ORDERABL ES Performing Organization Address [facility] Code Phon e Number [facility]IES - [address] [place], [place] [address] [facility] Calcium, Ionized (11/12/2017 11:42 AM CDT) P athologist Signature Calcium, 4.93 4.57 - [facility] Ionized, S 5.43 MG/DL LABORATORIES - [facility] Comment: ? ADDITIONAL INFORMATIO N ? This test has been modified from the man mackr's ? instructions. Its performance characteri stics were ? determined by [facility] in a manner co nsistent with ? CLIA requirements. This test has not bee n cleared or ? approved by the U.S. Food and Drug Admin istration. ? pH 7.42 7.35 - 7.48 [facility] LABORA TORIES - [facility] Specimen Anatomical Collection Method Collection Time Receive d Time (Source) Location / / Volume Laterality 11/12/2017 11:42 11/12/2017 AM CDT 11:42 AM CDT Venu Fernandez M.D., M.S. LAB BLOOD NON ADD-ON Performing Organization Address City/[facility] Code Phon e Number [facility]IES - [address] [place] [phone] [facility] (ABNORMAL) ALT (Alanine Aminotransferase) (11/12/2017 11:42 AM CDT) Component Value Ref Test Analysis Performed At Patholo gist Range Method Time Signature Alanine 212 (H) 7 - 45 [facility] Aminotransferase U/L LABORATORIES - (ALT), S [facility] Specimen Anatomical Collection Method Collection Time Receive d Time (Source) Location / / Volume Laterality 11/12/2017 11:42 11/12/2017 AM CDT 11:42 AM CDT Venu Fernandez M.D., M.S. LAB BLOOD ADD-ON Performing Organization Address City/State/[facility] Code Phon e Number [facility]IES - [address] [place] [phone] [facility] BMP (Basic Metabolic Panel) (11/12/2017 11:42 AM CDT) Analysis Performed At Patho logist Time Signature Sodium, P 141 135 - 145 [facility] MMOL/L LABORATORIES - [facility] Potassium, P 4.0 3.6 - 5.2 [facility] MMOL/L LABORATORIES - [facility] eGFR >60 >60 [facility] Non-Black/Afric ML/MIN/BSA LABORATORIES - [facility] eGFR >60 >60 [facility] Black/ ML/MIN/BSA LABORATORIES - [facility] BUN (Blood Urea 11 6 - 21 [facility] Nitrogen), S MG/DL LABORATORIES - [facility] HX Bicarbonate, 23 22 - 29 [facility] P/S MMOL/L LABORATORIES - [facility] Glucose, S 102 70 - 140 [facility] MG/DL LABORATORIES - [facility] Anion Gap 12 7 - 15 [facility] Chloride, S 106 98 - 107 [facility] MMOL/L LABORATORIES - [facility] Creatinine 0.7 0.6 - 1.1 [facility] MG/DL LABORATORIES - [facility] eGFR >60 >60 [facility] Non-Black/Afric ML/MIN/BSA LABORATORIES - an Finnish [facility] eGFR-Black/Afri >60 >60 [facility] can Finnish ML/MIN/BSA LABORATORIES - [facility] Creatinine 0.7 0.6 - 1.1 [facility] MG/DL LABORATORIES - [facility] Specimen Anatomical Collection Method Collection Time Receive d Time (Source) Location / / Volume Laterality 11/12/2017 11:42 11/12/2017 AM CDT 11:42 AM CDT Venu Fernandez M.D., M.S. LAB BLOOD ADD-ON Performing Organization Address City/[facility] Code Phon e Number [facility]IES - [address] [place] [phone] [facility] (ABNORMAL) CBC without Differential (11/12/2017 11:42 AM CDT) Patholo gist Method Time Signature Hemoglobin 9.8 (L) 12.0 - [facility] 15.5 G/DL LABORATORIES - [facility] Hematocrit 29.8 (L) 34.9 - [facility] 44.5 % LABORATORIES - [facility] Erythrocytes 3.42 (L) 3.90 - [facility] 5.03 LABORATORIES - X10(12)/L [facility] MCV 87.1 81.6 - [facility] 98.3 [place] [facility] RBC Distrib 15.0 11.9 - [facility] Width 15.5 % [facility] Platelet Count 229 150 - 450 [facility] X10(9)/L [facility] Leukocytes 13.2 (H) 3.5 - [facility] 10.5 LABORATORIES - X10(9)/L [facility] Specimen Anatomical Collection Method Collection Time Receive d Time (Source) Location / / Volume Laterality 11/12/2017 11:42 11/12/2017 AM CDT 11:42 AM CDT Venu Fernandez M.D., M.S. LAB BLOOD ADD-ON Performing Organization Address City/State/ZIP Code Phon e Number [facility] - [address] [place] [phone] [facility] Phosphorus Inorganic (11/12/2017 11:42 AM CDT) Analysis Performed At Patho logist Time Signature Phosphorus 2.6 2.5 - 4.5 [facility] (Inorganic), S MG/DL [facility] Specimen Anatomical Collection Method Collection Time Receive d Time (Source) Location / / Volume Laterality 11/12/2017 11:42 11/12/2017 AM CDT 11:42 AM CDT Venu Fernandez M.D., M.S. LAB BLOOD ADD-ON Performing Organization Address City/[facility]/ZIP [facility] [place] e Number [facility]IES - [address] [place] [phone] [facility] Bilirubin, Total (11/12/2017 11:42 AM CDT) P athologist Signature Bilirubin, 0.8 <=1.2 [facility] Total, S MG/DL [facility] Specimen Anatomical Collection Method Collection Time Receive d Time (Source) Location / / Volume Laterality 11/12/2017 11:42 11/12/2017 AM CDT 11:42 AM CDT Venu Fernandez M.D., M.S. LAB BLOOD ADD-ON Performing Organization Address City/[facility]/ZIP Code Phon e Number [facility] - [address] [place] [address] [facility] Magnesium (11/12/2017 11:42 AM CDT) P athologist Signature Magnesium, S 1.9 1.7 - 2.3 [facility] MG/DL [facility] Specimen Anatomical Collection Method Collection Time Receive d Time (Source) Location / / Volume Laterality 11/12/2017 11:42 11/12/2017 AM CDT 11:42 AM CDT Venu Fernandez M.D., M.S. LAB BLOOD ADD-ON Performing Organization Address City/State/ZIP Code Phon e Number [facility] - [address] [place] [phone] [facility] Bilirubin, Direct (11/12/2017 11:42 AM CDT) P athologist Signature Bilirubin, 0.2 0.0 - 0.3 [facility] Direct, S MG/DL [facility] Specimen Anatomical Collection Method Collection Time Receive d Time (Source) Location / / Volume Laterality 11/12/2017 11:42 11/12/2017 AM CDT 11:42 AM CDT Venu Fernandez M.D., M.S. LAB BLOOD ADD-ON Performing Organization Address City/[facility]/ZIP Code Phon e Number [facility] - [address] AST (Aspartate Aminotransferase) (11/12/2017 11:42 AM CDT) P athologist Signature AST, Total, S 22 8 - 43 U/L [facility] Specimen Anatomical Collection Method Collection Time Receive d Time (Source) Location / / Volume Laterality 11/12/2017 11:42 11/12/2017 AM CDT 11:42 AM CDT Venu Fernandez M.D., M.S. LAB BLOOD ADD-ON Performing Organization Address City/[facility] Code Phon e Number [facility] - [address] [place] [phone] [facility] Alkaline Phosphatase (11/12/2017 11:42 AM CDT) athologist Signature Alkaline 92 37 - 98 [facility] Phosphatase, S U/L [facility] Specimen Anatomical Collection Method Collection Time Receive d Time (Source) Location / / Volume Laterality 11/12/2017 11:42 11/12/2017 AM CDT 11:42 AM CDT Venu Fernandez M.D., M.S. LAB BLOOD ADD-ON Performing Organization Address City/[facility] Phon e Number [facility] - [address] [place] [address] documented in this encounter Visit Diagnoses Not on filedocumented in this encounter Additional Health Concerns Assessment Noted Time PHQ-9 Depression Total Score: 7 04/07/2017 9:39 AM CDT documented as of this encounter Care Teams Insulator Cutter And Former Relationship Specialty Start Date End Date Blaire Bundy P.A.-C. PCP - General 02/04/17 04/26/19 documented as of this encounter
--- OUTSIDE RECORDS SUMMARY | 2022-06-29 09:28 | XMS_ITS | Encounter Summary ---
:1985 Author Organization [facility] Address [address] [place] [address] Care Team Providers Name Role Phone Blaire Bundy P.A.-C. Primary Care Provider [phone] Reason for Visit Reason Comments Communication [facility] Hospital follow up Encounter Details Date Type Department Care Team Description 11/15/2017 Clinical Department of Suellen Beasley on ([facility] Communication Family Medicine, R, R.N. Hospital follow up) [place] [address] Clinic, in [address] [phone] [facility] [phone] [place], [place] (Work) [phone] Social History Tobacco Use Types Packs/Day [...] How often do you attend worship or restoration More than 4 time s [...] to pay for the very basics like TLabs hat hard 07/09/2020 food, housing, medical care, [...] this encounter Miscellaneous Notes Telephone Encounter - Suellen Beasley R.N. - 11/15/2017 10:51 AM CDT SUBJECTIVE REASON FOR CALL Post-Hospital follow-up phone call with patient after Carol Cooley discharge on 11/13/17 for Upper GI bleed from post-sphincterotomy bleed. General Health Carol Cooley notes today she is feeling better than when she left the hospital. Patient confirms that the condition for which she was admitted has improved. Home management assessment post discharge: Patient states she is doing okay, but has a few questionsand concerns. Patient is still having a little lightheadedness when she exerts herself. She is also having a tolerable headache. . Actions taken: home care instructions reinforced or provided, provider notified and encouraged rest and fluids. Patient is going to try some caffine for headache. Infection related to a resistant organism: no Surgical/Procedural Follow-up Medication Status Medication status assessment: is taking new medications as prescribed Medication management: Patient states medication is self managed. MTM Referral warranted: no Patient's understanding of medication's side effects: Patient recalls and understands all side effects and reactions relating to new medication(s). Medications concerns: none Is patient taking any of the following: Controlled substances: no Antibiotics: no Diabetic medications: no Anticoagulants: no Home Care/Equipment Home care ordered: no Activities of Daily Living Has activities of daily living changed since hospitalization: no Ambulation Has ambulation changed since hospitalization: no Difficulty ambulating: no Follow-Up Appointment Follow-up appointment scheduled? yes Date of appointment: 11/19/17 at 10:30 with Blaire Thornton. Does patient plan to go to the appointment?: yes Concerns about getting to the appointment: issues getting to your appointment: none General Care and Feedback Actions: none Post-Hospital Assessment: Areas for hospital feedback: Post hospital near miss assessment: none Telephone Encounter - Suellen Beasley R.N. - 11/15/2017 10:34 AM CDT Left message for patient to call clinic. Telephone Encounter - Suellen Beasley R.N. - 11/15/2017 7:40 AM CDT Discharge date 11/13/17 at 1307. Reason for hospitalization Upper GI bleed from post-sphincterotomy bleed. Follow up scheduled for 11/19/17 at 10:45 with Blaire Thornton. documented in this encounter Plan of Treatment Scheduled Procedures Name Priority Associated Diagnoses Date/Time COLONOSCOPY Diarrhea documented as of this encounter Visit Diagnoses Not on filedocumented in this encounter Additional Health Concerns Assessment Noted Time PHQ-9 Depression Total Score: 7 04/07/2017 9:39 AM CDT documented as of this encounter Care Teams Comparator Operator Relationship Specialty Start Date End Date Blaire Bundy P.A.-C. PCP - General 02/04/17 04/26/19 documented as of this encounter
--- OUTSIDE RECORDS SUMMARY | 2022-06-29 09:28 | XMS_ITS | Encounter Summary ---
:1985 Author Organization [facility] Address [address] [place] [address] Care Team Providers Name Role Phone Blaire Bundy P.A.-C. Primary Care Provider Reason for Referral Outpatient (Routine) - Closed Specialty Diagnoses / Procedures Referred By Contact Refer red To Contact Orthopedic Surgery Diagnoses Pain Toe Pain Toe Blaire Bundy [facility] Procedures ORS CONS FOOT POD P.A.-C. [address] [place], [place] [address] Referral ID Status Reason Start Date Expiration Date Visits Requ ested Visits Authorized [id number] Closed 02/18/2018 02/18/2019 1 1 Scheduling Instructions Schedule after tests Reason for Visit Reason Comments Pre-op Exam Gallbladder removal, DOS 02/20 10/10, Dr. 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 [address] [place] [address] Referral ID Status Reason Start Date Expiration Date Visits Requ ested Visits Authorized [id number] Closed 02/11/2018 02/11/2019 1 1 Encounter Details Date Type Department Care Team Description 02/18/2018 Office Visit Department of Family Blaire Bundy perative Exam (Primary Dx); MedicineFlorentino P.A.-C. 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; [facility] [place] [address] Elvis Swenson Gallstone With Common Bile Duct Stone; [place], [place] Anemia Pos themorrhagic Acute; [place] [address] Pain Toe [address] [phone] [place], [place] (Work) [phone] Social History Tobacco Use [...] or relatives? How often do you attend jew or yazidi More than 4 time s per year 07/09/2020 services? Do you belong to any clubs or organizations No 04/19/2019 such as jew groups, unions, fraternal or athletic groups, or [...] Sign Reading Time Taken Comments Blood Pressure 130/77 02/18/2018 10:03 AM CDT Pulse 79 02/18/2018 10:03 AM CDT Temperature 36.4 ??C (97.5 ??F) 02/18/2018 10:03 AM CDT Respiratory Rate 18 02/18/2018 10:03 AM CDT Oxygen Saturation 97% 02/18/2018 10:03 AM CDT Inhaled Oxygen Concentration - - Weight 144 kg (317 lb 14.5 oz) 02/18/2018 10:03 AM CDT Height 157.5 cm (5' 2.01) 02/18/2018 10:03 AM CDT Body Mass Index 58.13 02/18/2018 10:03 AM CDT documented in this encounter H&P Notes Blaire Thornton P.A.-C. - 02/18/2018 10:00 AM CDT SUBJECTIVE CHIEF COMPLAINT / REASON FOR VISIT Carol Cooley is a 32 y.o. female who presents for evaluation of Pre-op Exam and Nail Problem (was on ABX for infection and did get better but it is still hurting and now it is on the other toe too). HISTORY OF PRESENT ILLNESS Carol is a 32 year old female who presents today for preoperative evaluation. The patient is having a cholecystomy with Dr. Moeller in [place] on 03/03/2018. The patient notes she continues to have trouble with her toe nails. She has been given an antibioticfor the right toe nail infection in the past. This did help her symptoms. She is now having pain in the left toe nail as well. She denies any purulent drainage as she had with the right toe nail. Patient is wondering if she can see podiatry for further evaluation. She has been soaking the feet in epsom salt. Patient Active Problem List Diagnosis ??? Body Mass Index 50.0 To 59.9 Adult ([facility]) ??? Abuse Tobacco Smoking- Smokes infrequently/socially, 1-2 monthly ??? Migraine Headache ??? Apnea Sleep Obstructive- not currently using a CPAP ??? Gastroesophageal Reflux Disease NOS ??? 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 Pain Right Upper Quadrant ??? Gallstone With Common Bile Duct Stone ??? Attention Deficit With Hyperactivity Disorder- She notes she would like to discuss options for treatment ??? Depression Major- Patient indicates she is currently going through a divorce with her and raising her two children alone. This has been tough. The patient denies any family history or personal history of bleeding or clotting disorders, cardiachistory, diabetes, stroke, trouble with anesthesia. The following portions of the patient's history were reviewed and updated as appropriate: allergies,current medications, family history, medical history, social history, surgical history and problem list. Current Outpatient Prescriptions: ??? acetaminophen (for_TYLENOL) 500 mg tablet, Take 1-2 tablets by mouth every 6 (six) hours as needed., Disp: , Rfl: ??? omeprazole (for_PriLOSEC) 40 mg capsule, Take 40 mg by mouth every morning before breakfast. Reflux/GERD, Disp: , Rfl: Current Facility-Administered Medications: ??? medroxyPROGESTERone injection 150 mg, 150 mg, intramuscular, Q12 weeks, Leonora Reaves, JOSEFA, C.N.P., 150 mg at 07/29/17 1137 Past Medical History: Diagnosis Date ??? Hemorrhage Gastrointestinal 11/13/2017 ??? Hypovolemic Shock (HCC) 11/11/2017 ??? Sleep Apnea does not use CPAP machine Past Surgical History: Procedure Laterality Date ??? ENDOSCOPIC RETROGRADE CHOLANGIOPANCREATOGRAPHY (ERCP) N/A 11/08/2017 Procedure: ENDOSCOPIC RETROGRADE CHOLANGIOPANCREATOGRAPHY; Surgeon: Rubio Baker M.D.; Location: [facility] OR ??? ESOPHAGOGASTRODUODENOSCOPY N/A 11/11/2017 Procedure: ESOPHAGOGASTRODUODENOSCOPY; Surgeon: Rubio Baker M.D.; Location: [facility] GI LAB ??? LAPAROSCOPIC APPENDECTOMY N/A 09/08/2017 Procedure: LAPAROSCOPIC APPENDECTOMY; Surgeon: Edd Moeller D.O.; Location: [facility] OR ??? OTHER CONVERTED SHX (SEE COMMENT) N/A 06/24/2017 >1. Normal spontaneous vaginal delivery. 2. Second-degree midline laceration and repair. Family History Problem Relation Age of Onset ??? Cancer Grandmother ear ??? Cystic fibrosis Sister ??? Cancer Grandfather larynx ??? Lung cancer Grandmother brain cancer ??? Heart attack Father 47 ??? Hypothyroidism Mother ??? Anesthesia problems Neg Hx Social History Social History Main Topics ??? Smoking status: Current Some Day Smoker ??? Smokeless tobacco: Never Used Comment: Smoking 1-2 cigarettes monthly ??? Alcohol use Yes Comment: occasional 1-2 a year ??? Drug use: No ??? Sexual activity: Yes Partners: Male REVIEW OF SYSTEMS Constitutional: Negative for fatigue, fever, weight gain of more than 10 pounds and weight loss of more than 10 pounds. Skin: Positive for skin rash (pain and erythema of the left and right 1st toes, no purulent drainage). Eyes: Negative for double vision and visual problems. ENT: Negative for difficulty hearing and sinus congestion. Respiratory: Negative for dyspnea and wheezing. Cardiovascular: Negative for chest pain, pressure or tightness and swelling in the legs or feet. Gastrointestinal: Negative for abdominal (belly) pain or cramping, blood in stool, constipation, diarrhea, heartburn, nausea, vomiting and difficulty swallowing. Genitourinary: Negative for difficulty urinating, pain with urination, hematuria and frequent urination. Hematologic: Negative for bruises or bleeds easily. Musculoskeletal: Negative for back pain and muscle pain/stiffness. Neurological: Negative for loss of consciousness and headaches. The following systems were negative: Psych OBJECTIVE Blood pressure 130/77, pulse 79, temperature 36.4 ??C, temperature source Temporal, resp. rate 18, height 157.5 cm, weight (!) 144.2 kg, last menstrual period 01/24/2018, SpO2 97 %, not currently . PHYSICAL EXAM Constitutional: She is oriented to person, place, and time. She appears well- developed and well-nourished. HENT: Head: Normocephalic. Right Ear: Tympanic membrane, external ear and ear canal normal. Left Ear: Tympanic membrane, external ear and ear canal normal. Mallampati 2 Eyes: Conjunctivae and EOM are normal. Pupils are equal, round, and reactive to light. Neck: Normal range of motion. Neck supple. No thyromegaly present. Cardiovascular: Normal rate, regular rhythm and normal heart sounds. She exhibits no edema. Exam reveals no gallop and no friction rub. No murmur heard. Pulmonary/Chest: No respiratory distress. She has no wheezes. She has no rales. She exhibits no tenderness, no deformity and no retraction. Abdominal: Soft. Bowel sounds are normal. She exhibits no distension and no mass. There is no tenderness. Musculoskeletal: Normal range of motion. Lymphadenopathy: She has no cervical adenopathy. Right: No supraclavicular adenopathy present. Left: No supraclavicular adenopathy present. Neurological: She is alert and oriented to person, place, and time. No cranial nerve deficit. Skin: Skin is warm and dry. Capillary refill takes less than 2 seconds. Psychiatric: She has a normal mood and affect. Recent Results (from the past 72 hour(s)) CBC with Differential, Blood Collection Time: 02/18/18 10:42 AM Result Value Hemoglobin 11.3 (L) Hematocrit 37.3 Erythrocytes 4.95 MCV 75.4 (L) RBC Distrib Width 15.3 Platelet Count 285 Leukocytes 7.0 Neutrophils 4.71 Lymphocytes 1.76 Monocytes 0.35 Eosinophils 0.18 Basophils 0.03 ASSESSMENT / PLAN #1 Preoperative Exam Patient is deemed to be medically optimized for planned surgical procedure and low risk for a perioperative cardiac event. Patient is capable of climbing a flight of stairs without unusual dyspnea or chest pain. No additional cardiac testing is needed. 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 #3 Gallstone With Common Bile Duct Stone As noted above. #4 Anemia Posthemorrhagic Acute Patient did have anemia following a gastrointestinal hemorrhage. This is since resolved and her hemoglobin has returned to near normal. #5 Pain Toe In regards to patient's toe pain I did place referral for Podiatry for her. Patient notes she would like to discuss option for ADD. I recommended she make another appointment to discuss her options and determine therapeutics. documented in this encounter Plan of Treatment Scheduled Procedures Name Priority Associated Diagnoses Date/Time COLONOSCOPY Diarrhea Scheduled Referrals Name Type Priority Associated Order Schedule Diagnoses Orthopedic Surgery - Outpatient Referral Routine Pain Toe Expected: Podiatry foot non 02/18/2018 surgical consult (Approximat e), (clinic) Expires: 02/18/2021 documented as of this encounter Procedures Procedure Name Priority Date/Time Associated Diagnosis Comme nts CBC WITH Routine 02/18/2018 10:42 Gallstone With Common Re sults for this DIFFERENTIAL, B AM CDT Bile Duct Stone procedure are in Anemia Posthemorrhagic the r esults Acute section. documented in this encounter Results (ABNORMAL) CBC with Differential, Blood (02/18/2018 10:42 AM CDT) [facility] gist Method Time Signature Hemoglobin 11.3 (L) 11.6 - 02/18/2018 [facility] 15.0 g/dL 10:54 AM CDT [facility] Hematocrit 37.3 35.5 - 02/18/2018 [facility] 44.9 % 10:54 AM CDT [facility] Erythrocytes 4.95 3.92 - 02/18/2018 [facility] 5.13 10:54 AM CDT [facility] MCV 75.4 (L) 78.2 - 02/18/2018 [facility] 97.9 fL 10:54 AM CDT [facility] RBC Distrib Width 15.3 12.2 - 02/18/2018 [facility] 16.1 % 10:54 AM CDT [facility] Platelet Count 285 157 - 371 02/18/2018 [facility] x10(9)/L 10:54 AM CDT [facility] Leukocytes 7.0 3.4 - 9.6 02/18/2018 [facility] x10(9)/L 10:54 AM CDT [employer] [facility] Neutrophils 4.71 1.56 - 02/18/2018 [facility] 6.45 10:54 AM CDT [facility] Lymphocytes 1.76 0.95 - 02/18/2018 [facility] 3.07 10:54 AM CDT [facility] x[facility](9)/[facility] Monocytes 0.35 0.26 - 02/18/2018 [facility] 0.81 10:54 AM CDT [facility] [employer] [facility] Eosinophils 0.18 0.03 - 02/18/2018 [facility] 0.48 10:54 AM CDT [facility] x10(9)/L [facility]- [employer] [facility] Basophils 0.03 0.01 - 02/18/2018 [facility] 0.08 10:54 AM CDT [facility] Specimen Anatomical Collection Method Collection Time Receive d Time (Source) Location / / Volume Laterality Blood (Blood, 02/18/2018 10:42 02/18/2018 Venous) AM CDT 10:46 AM CDT Edd Moeller D.O. LAB BLOOD ADD-ON Performing Organization Address City/State/ZIP Code Phon e Number [facility] [id number] [address] [place] [facility] documented in this encounter Visit Diagnoses Diagnosis Preoperative Exam - Primary 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 Gallstone With Common Bile Duct Stone Anemia Posthemorrhagic Acute (Blood Loss Anemia) Pain Toe documented in this encounter Additional Health Concerns Assessment Noted Time PHQ-9 Depression Total Score: 7 04/07/2017 9:39 AM CDT documented as of this encounter Care Teams Maintainability Engineer Relationship Specialty Start Date End Date Blaire Bundy P.A.-C. PCP - General 02/04/17 04/26/19 documented as of this encounter
--- OUTSIDE RECORDS SUMMARY | 2022-06-29 09:28 | XMS_ITS | Encounter Summary ---
:[address] [facility] Address [address] [place] [address] Care Team Providers Name Role Phone Blaire Bundy P.A.-C. Primary Care Provider [phone] Reason for Visit Auth/Cert Specialty Diagnoses / Procedures Referred By Contact Refer red To Contact Diagnoses Gallstone With Common Bile Duct Stone Procedures [place] LAPAROSCOPY CHOLECYST W CHOLNG LAPAROSCOPIC CHOLECYSTECTOMY WITH CHOLANGIOGRAM Referral ID Status Reason Start Date Expiration Date Visits Requ ested Visits Authorized [id number] 1 1 Encounter Details Date Type Department Care Team Description 03/03/2018 Surgery [facility] MAIN OR Jaquan Monhaan LAPAROSCOPIC [address] MICHELLE P, D.O. CHOLECYSTECTOMY POSSIBLE [place], [place] [address] CHOLANGIOGRAM [id number] [place] [address] Social History Tobacco Use Types Packs/Day Years [...] or relatives? How often do you attend yazidism or restoration More than 4 time s per year 07/09/2020 services? Do you belong to any clubs or organizations No 04/19/2019 such as yazidism groups, unions, fraternal or athletic groups, or [...] Sign Reading Time Taken Comments Blood Pressure 161/87 03/03/2018 7:10 AM CDT Pulse 92 03/03/2018 7:10 AM CDT Temperature 36.2 ??C (97.2 ??F) 03/03/2018 7:10 AM CDT Respiratory Rate 16 03/03/2018 7:10 AM CDT Oxygen Saturation 97% 03/03/2018 7:10 AM CDT Inhaled Oxygen Concentration - - Weight 144 kg (317 lb 14.5 oz) 03/03/2018 6:59 AM CDT Height 157.5 cm (5' 2.01) 03/03/2018 6:59 AM CDT Body Mass Index 58.13 03/03/2018 6:59 AM CDT documented in this encounter Discharge Instructions AttachmentsThe following attachments cannot be sent through Care Everywhere.Home Care Following Gallbladder Surgery (Romanian)documented in this encounter Medications at Time of Discharge Medication Sig Dispensed Refills Start Date End Date acetaminophen Take 1-2 tablets by 0 06/24/2017 (for_TYLENOL) 500 mg mouth every 6 (six) tablet hours as needed. omeprazole (for_PriLOSEC) Take 40 mg by mouth 0 11/04/2021 40 mg capsule every morning before breakfast. Reflux/GERD traMADol (ULTRAM) 50 mg Take 1 tablet (50 mg 30 tablet 0 03/14/2018 tablet total) by mouth every 4 (four) hours as needed for moderate pain or score 4-6 of 10 (give 1 tab if pain score of 1-4, give 2 tabs if pain score >4). documented as of this encounter OR Notes Op Note - Jaquan Monahan D.O. - 03/03/2018 8:58 AM CDT FULL OP NOTE Procedure(s): LAPAROSCOPIC CHOLECYSTECTOMY POSSIBLE CHOLANGIOGRAM Surgeon(s) and Role: * Jaquan Monahan D.O. - Primary Lap Runner: Naye Stockton L.P.N. Anesthesia Type: General Pre-Operative Diagnosis: Gallstone With Common Bile Duct Stone [K80.70] Full Operative Note Details History and gross findings: Ms. Clayton is a 32-year-old female who presented in October of this year with the common bile duct obstruction secondary to gallstones. She underwent an ERCP which was complicated by a GI bleed requiring transfusions. She has since recovered from that. She continues to have intermittent epigastric abdominal pain with bloating and back pain but no pain suggestive of acute cholecystitis or choledocholithiasis. She presents for definitive care of her gallbladder. Operative findings are that of morbid obesity and some fatty liver. Visualization of the small large bowel was limited by the exposure provided by the laparoscope. The gallbladder was grossly unremarkable without significant adhesions or evidence of inflammation. A single cystic duct and single cystic artery were noted. The cystic duct was somewhat dilated. Unfortunately Astudillo cholangiogram did not show contrast leaving the infundibulum of the gallbladder. Therefore the distal ductal anatomy could not be assessed. Critical view was established. Description of procedure: Patient was taken to the operating room placed the operating table in the supine position. General anesthetic was administered. The abdomen was prepared with chlorhexidine solution and draped in a sterile manner. A procedure pause was performed to verify patient identity, preoperative imaging and pathologic findings, procedure to be performed, and special equipment needed. The infraumbilical fold was anesthetized with 0.5% Marcaine and 1% lidocaine. A vertical 5 mm incision was made. Soft tissues were dissected and the anterior fascia grasped with a perforating towel clip. The fascia was elevated and a 14 gauge Veress needle inserted into the abdominal cavity. Its position was confirmed with the hanging saline drop test. The abdomen was insufflated with approximately 3 and 0.5 L of CO2 gas to a pressure of 14 mm Hg. The Veress needle was withdrawn and replaced with a5 mm Visiport laparoscopic trocar and sheath. 0 degree scope was inserted. Under direct vision, a 12 mm port was placed in the subxiphoid area just to the right of the falciform ligament, and 2 5 mm ports placed in the midclavicular and anterior axillary lines respectively. The gallbladder was placed under traction and the infundibulum dissected to establish the critical view. Astudillo cholangiogram clamp was then placed across the lower infundibulum of the gallbladder and a cholangiogram catheter inserted the gallbladder. Cholangiography was performed with 50% Conray material, but did not demonstrate exit out of the gallbladder. Cholangiogram catheter was removed. The cystic duct was then doubly clipped distally and singly clipped proximally and divided. In a similar fashion the cystic artery was skeletonized ligated and divided. The gallbladder was then taken down off the liver bed with sharp dissection using electrocautery for hemostasis. The gallbladder wall was somewhat thin and there was a small rent in the gallbladder with spillage of very tiny gallstones. Hopefully most of these were recovered in the suction disk recordist. The gallbladder was placed in Endo-Catch bag and removed through the 12 mm port site. The pneumoperitoneum was reestablished and the right upper quadrant copiously irrigated with normal saline. All instruments and ports were then removed the CO2 gas allowed to escape. Multiple attempts were made to try to close the fascia at the 12 mm port site but the patient's obesity precluded adequate exposure. All incisions were then closed with interrupted subcuticular sutures of 4 1 diet Vicryl. Dermabond sterile dressings were applied. Patient tolerated procedure well and was sent back to the recovery area in satisfactory condition. Specimens ID Type Source Tests Collected by Time A : Tissue Gallbladder PATHOLOGY SERVICES Jaquan Monahan D.O. 03/03/2018 0954 Drains * No drains in log * Estimated Blood Loss 10 mL Implants * No implants in log * Jaquan Monahan D.O. Brief Op Note - Jaquan Monahan D.O. - 03/03/2018 8:58 AM CDT BRIEF OP NOTE Procedure(s): LAPAROSCOPIC CHOLECYSTECTOMY POSSIBLE CHOLANGIOGRAM Surgeon(s) and Role: * Jaquan Monahan D.O. - Primary Anesthesia Type: General Pre-Operative Diagnosis: Gallstone With Common Bile Duct Stone [K80.70] Brief Operative Note Details Specimens ID Type Source Tests Collected by Time A : Tissue Gallbladder PATHOLOGY SERVICES Jaquan Monahan D.O. 03/03/2018 0954 Drains * No drains in log * Estimated Blood Loss 10 mL Implants * No implants in log * Jaquan Monahan D.O. documented in this encounter Plan of Treatment Scheduled Procedures Name Priority Associated Diagnoses Date/Time COLONOSCOPY Diarrhea Scheduled Referrals Name Type Priority Associated Diagnoses Order [facility] General Surgery Outpatient Referral Routine Gallstone With Exp ected: Post Op (clinic) Common Bile Duct 018 Stone (Approximate), Expires: 03/03/2021 documented as of this encounter Procedures Procedure Name Priority Date/Time Associated Comments Diagnosis PATHOLOGY SERVICES Routine 03/03/2018 9:54 Gallstone With Resu lts for this AM CDT Common Bile Duct procedure a re in Stone the results section. LAPAROSCOPIC 03/03/2018 8:27 Gallstone With CHOLECYSTECTOMY WITH AM CDT Common Bile Duct CHOLANGIOGRAM Stone documented in this encounter Results Pathology Services (03/03/2018 9:54 AM CDT) Component Value Ref Test Analysis Performed At [facility] Range Method Time Signature PATHOLOGY Patient Name: [facility] MR#: [id number] [facility] Submitting Physician: JAQUAN MONAHAN DO [id number] Specimen #[id number] Performing Lab: ??[facility] ? [address] [place] [id number] Source: Gallbladder Clinical History/Pre-Op Gallstone with common bile duct stone (K80.70) Gross Description The specimen is received in formalin lab eled as gallbladder and consists of an intact gallbladder measuring 7 x 3.2 x 2.9 cm. ??The serosal surface is gatica-green and smooth. ??The gallbladder is opened to reveal multiple y ellow-green gallstones ranging from 0.1- 0.7 cm in greatest dimension, measuring 7 x 4 x 2.0 cm in aggregate. ??A 0.5 cm in greatest dimension gallstone is identified within the cystic duct. ??The mucos a is agtica and trabeculated. ??The mucosal wall measures 0.2 cm. ??Telegraph Office Route Aide sections are submitted in cassette A1. KG/ps ?? Diagnosis Gallbladder, cholecystectomy: CHOLELITHIASIS. Electronically Signed By USAMA MALDONADO MD - 03/04/2018 pjs/03/04/2018 Specimen (Source) Anatomical Collection Method Collection Time Re ceived Time Location / / Volume Laterality Tissue 03/03/2018 9:54 AM (Gallbladder) CDT Jaquan Monahan D.O. LAB SURG PATH ORDERABLES Performing Organization Address City/State/ZIP Code Phon e Number [facility] [address] [place] [address] documented in this encounter Visit Diagnoses Diagnosis Gallstone With Common Bile Duct Stone - Primary Gallstone With Common Bile Duct Stone Gallstone With Common Bile Duct Stone documented in this encounter Admitting Diagnoses Diagnosis Gallstone With Common Bile Duct Stone documented in this encounter Administered Medications Inactive Administered Medications - up to 3 most recent administrations Medication Order MAR Action Action Date Dose Rate Site albuterol nebulizer solution 2.5 Given 03/03/2018 7:31 AM CDT 2. 5 mg mg (ACCUNEB) 2.5 mg, nebulization, Once, On Bryanna 03/03/18 at 0700, For 1 dose, Pre-Op bupivacaine PF 0.5 % (5 mg/mL) injection Given 03/03/2018 9:58 A M CDT 10 mL (MARCAINE) As needed, Starting on Bryanna 03/03/18 at 0958, Intra-Op ciprofloxacin in D5W New Bag 03/03/2018 7:15 AM 400 mg 200 mL/ hr Right Antecubital IVPB 400 mg (CIPRO) CDT 400 mg, intravenous, at 200 mL/hr, Administer over 60 Minutes, Once, On Bryanna 03/03/18 at 0715, For 1 dose, Intra-Op, Preoperatively within 2 hours prior to surgical incision. premix bag, Drug Monitoring Program: Pharmacist to adjust medication order based on comorbities and indication., Indications: Prophylaxis, surgical fentaNYL injection 25 mcg (SUBLIMAZE) Given 03/03/2018 10:58 AM CDT 25 mcg 25 mcg, intravenous, Every 2 min PRN, For pain 4 or greater (maximum 100 mcg). If max dose of Fentanyl is reached and if pain is greater than 4, discontinue Fentanyl: give Hydromorphone, Starting on Bryanna 03/03/18 at 1027, PACU (only) Given 03/03/2018 10:54 AM CDT 25 mcg Given 03/03/2018 10:52 AM CDT 25 mcg heparin (porcine) Given 03/03/2018 7:31 AM CDT 5,000 Units Left Lower Abdomen injection 5,000 Units 5,000 Units, subcutaneous, Once, On Bryanna 03/03/18 at 0715, For 1 dose, Intra-Op, Administer prior to induction of anesthesia. ioversol 240 mg iodine/mL 50 mL in NaCl 0.9% Given 8 9:59 AM CDT 20 mL 100 mL intravenous solution As needed, Starting on Bryanna 03/03/18 at 0959, Intra-Op lactated ringers Rate/Dose Verify 03/03/2018 8:27 AM CDT 20 mL/hr, intravenous, Continuous, Starting on Bryanna 03/03/18 at 0700, Pre-Op New Bag 03/03/2018 7:29 AM CDT 20 mL/hr 20 mL/hr lidocaine 10 mg/mL (1 %) injection (XYLO ALINA) Given 03/03/2018 9:59 AM CDT 10 mL As needed, Starting on Bryanna 03/03/18 at 0959, Intra-Op metoprolol tablet 12.5 mg (LOPRESSOR) 12.5 mg, oral, Once as needed, if patien t did not take their last scheduled dose of beta robert prior to arrival, Starting on Bryanna 03/03/18 at 0659, For 1 dose, Pre-Op, Do not give if patient does not take scheduled beta bl ockers, if patient is receiving intravenous vasopressors or inotropes, if he art rate is less than 50 beats per minute, if systolic blood pres sure is less than 90 mmHg or if diastolic blood pressure is less than 40 mmHg, or if patient has an allergy to metoprolol. sodium chloride injection 10 mL Given 03/03/2018 9:59 AM CDT 10 mL 10 mL, intravenous, Every 8 hours scheduled (RT), First dose on Bryanna 03/03/18 at 0700, Pre-Op, Peripheral Intravenous Catheter and Rapid Infusion Catheter, prior to blood sampling, post blood transfusion or post blood sampling sodium chloride injection 3 mL 3 mL, intravenous, As needed, line care, Starting on Bryanna 03/03/18 at 0659, Pre-Op, Prior to and following infusion and betw een multiple consecutive infusions: sodium chloride 0.9 % injection sodium chloride injection 3 mL 3 mL, intravenous, Every 12 hours scheduled, First dos e on Bryanna 03/03/18 at 0900, Pre-Op, Peripheral Intravenous Catheter and Rapid Infu clemencia Catheter, when no infusion to maintain patency documented in this encounter Active and Recently Administered Medications Times are shown in CDT. Scheduled Medication Order 03/01/2018 03/02/2018 03/03/2018 albuterol nebulizer solution 2.5 mg (ACCUNEB) (COMPLETED) 730 (Given - Provider: Perri Cooper R.N.) 2.5 mg, nebulization, Once, Bryanna 03/03/18 at 0700, For 1 dose, Pre -Op ciprofloxacin in D5W IVPB 400 mg (CIPRO) (COMPLETED) 714 (New Bag - Provider: Perri Cooper R.N.) 400 mg, intravenous, at 200 mL/hr, Admin ister over 60 Minutes, Once, Bryanna 03/03/18 at 0715, For 1 dose, Intra-Op, Preoperatively within 2 hours prior to surgical incision. premix bag, Drug Monitoring Prog bekah: Pharmacist to adjust medication ord er based on comorbities and indication., Indications: Prophylaxis, Surgical heparin (porcine) injection 5,000 Units (COMPLETED) 730 (Given - Provider: Ruben RossiN.) 5,000 Units, subcutaneous, Once, Bryanna 710/10 at 0715, For 1 dose, Intra-Op, Administer prior to induction of anesthesia. lidocaine 10 mg/mL (1 %) injection 1 mL (XYLOCAINE) 699 (Due) 1 mL, infiltration, Once, Bryanna 03/03/18 at 0700, For 1 dose, Pre-Op, May admin up to 1 mL at the site of IV site if not allergic to lidocaine metroNIDAZOLE in NaCl (iso-osm) IVPB 500 mg (FLAGYL) (COMPLETED) 843 (Given - Provider: Rosalee Desir APRN, PLASMA CENTER TECHNICIAN) 500 mg, intravenous, at 200 mL/hr, Admin ister over 30 Minutes, Once, Bryanna 718 at 0715, For 1 dose, Intra-Op, Preoperatively within 1 hour prior to surgical incision., Indications: Prophylaxis, Surgical sodium chloride injection 10 mL 0700 (Due) 10 mL, intravenous, Every 8 hours schedu led (RT), First dose on Bryanna 03/03/18 at 0700, Pre-Op, Peripheral Intravenous Catheter and Rapid Infusion Catheter, prior to blood sampling, post blood transfusion or post blood sampling sodium chloride injection 10 mL 0700 (Due)0959 (Given - Provider: Jaquan Monahan D.O.) 10 mL, intravenous, Every 8 hours schedu led (RT), First dose on Bryanna 03/03/18 at 0700, Pre-Op, Peripheral Intravenous Catheter and Rapid Infusion Catheter, prior to blood sampling, post blood transfusion or post blood sampling sodium chloride injection 3 mL 0 900 (Due) 3 mL, intravenous, Every 12 hours schedu led, First dose on Bryanna 03/03/18 at 0900, Pre-Op, Peripheral Intravenous Catheter and Rapid Infusion Catheter, when no infusion to maintain patency sodium chloride injection 3 mL 0 900 (Due) 3 mL, intravenous, Every 12 hours schedu led, First dose on Bryanna 03/03/18 at 0900, Pre-Op, Peripheral Intravenous Catheter and Rapid Infusion Catheter, when no infusion to maintain patency Continuous Medication Order 03/01/2018 03/02/2018 03/03/2018 lactated ringers 0729 (New Bag - Provider: Perri Cooper RRoverto)0827 (Rate/Dose Verify - Provider: Rosalee Desir APRN, BRENDA)1019 (Anesthesia Volume Adjustment - Provider: Rosalee Desir APRN, BRENDA)1242 (Stopped - Provider: Melany Lira R.N.) 20 mL/hr, intravenous, at 20 mL/hr, Cont inuous, Starting Bryanna 03/03/18 at 0700, Pre-Op PRN Medication Order 03/01/2018 03/02/2018 03/03/2018 bupivacaine PF 0.5 % (5 mg/mL) injection (MARCAINE) (CANCELED) 0958 (Given - Provider: Jaquan Monahan D.O.) As needed, Starting Bryanna 03/03/18 at 0958, Intra-Op dexamethasone injection 4 mg (DECADRON) 4 mg, intravenous, Once as needed, nause a, vomiting, Starting Bryanna 03/03/18 at 1027, For 1 dose, PACU (only), Give only if NOT given during the pre or intraoperative period. If ondansetron ordered, give dexamethasone with first dose of ondansetron. droperidol injection 0.625 mg (INAPSINE) 0.625 mg, intravenous, Every 6 hours PRN , nausea, vomiting, Starting Bryanna 03/03/18 at 1027, For 48 hours, PACU (only), Total of 3 doses in 24 hour period. RASS must be -2 or higher to administer. Reassess for nausea or vomiting after at least 1 0 minutes. If nausea or vomiting persists administer next ordered antiemetic medications (order for antiemetic medication administration ondansetron then droperid ol then promethazine)., Indications: Nausea and Vomiting fentaNYL injection 25 mcg (SUBLIMAZE) 1050 (Given - Provider: Melany Lira R.N.)1052 (Given - Provider: Melany Lira R.N.)1054 (Given - Provider: Mealny Lira R.N.)1058 (Given - Provider: Melany Lira R.NBrittaney) 25 mcg, intravenous, Every 2 min PRN, Fo r pain 4 or greater (maximum 100 mcg). If max dose of Fentanyl is reached and if pain is greater than 4, discontinue Fentanyl: give Hydromorphone, Starting Bryanna 03/03/18 at 1027, PACU (only) HYDROmorphone injection 0.5 mg (DILAUDID) 0.5 mg, intravenous, Every 5 min PRN, mo derate pain or score 4-6 of 10, severe pain or score 7-10 of 10, Starting Bryanna 03/03/18 at 1027, For 4 doses, PACU (only), Up to maximum total dose of 2 mg ioversol 240 mg iodine/mL 50 mL in NaCl 0.9% 100 mL intravenous solution (CANCELED) 0959 (Given - Provid er: Priti Raines.Hung) As needed, Starting Bryanna 03/03/18 at 0959, Intra-Op lidocaine 10 mg/mL (1 %) injection (XYLOCAINE) (CANCELED) 0959 (Given - Provider: Priti Raines.Hung) As needed, Starting Bryanna 03/03/18 at 0959, Intra-Op metoprolol tablet 12.5 mg (LOPRESSOR) 12.5 mg, oral, Once as needed, if patien t did not take their last scheduled dose of beta robert prior to arrival, Starting Bryanna 03/03/18 at 0659, For 1 dose, Pre-Op, Do not give if patient does not take scheduled beta blockers, if patient is r eceiving intravenous vasopressors or inotropes, if heart rate is less than 50 beats per minute, if systolic blood pressure is less than 90 mmHg or if diastolic bl ood pressure is less than 40 mmHg, or if patient has an ana rgy to metoprolol. naloxone injection 0.2 mg (NARCAN) 0.2 mg, intravenous, As needed, respirat ory depression, Starting Bryanna 03/03/18 at 1035, For respiratory rate less than 8 breaths per minute or RASS score of -3, - 4, -5. Apply oxygen to keep oxygen saturations greater than 90% and notify service. ondansetron (PF) injection 4 mg (ZOFRAN) 4 mg, intravenous, Every 6 hours PRN, na usea, vomiting, Starting Bryanna 03/03/18 at 1027, For 48 hours, PACU (only), Reassess for nausea or vomiting after at least 10 minutes. If nausea or vomiting persists administer next ordered antiemetic medi cations (order for antiemetic medication administration ondansetron then droperidol then promethazine). promethazine injection 6.25 mg (PHENERGAN) 6.25 mg, intravenous, Every 6 hours PRN, nausea, vomiting, Starting Bryanna 03/03/18 at 1027, For 48 hours, PACU (only), RASS must be -2 or higher to administer. Reassess for nausea/vomiting after at least 1 0 minutes. If nausea or vomiting persist s administer next ordered antiemetic medications (order for antiemetic medication administration ondansetron then droperidol then promethazine). sodium chloride injection 3 mL 3 mL, intravenous, As needed, line care, Starting Bryanna 03/03/18 at 0659, Pre-Op, Prior to and following infusion and between multiple consecutive infusions: sodium chloride 0.9 % injection traMADol tablet 50 mg (ULTRAM) 50 mg, oral, Every 4 hours PRN, moderate pain or score 4-6 of 10, give 1 tab if pain score of 1-4, give 2 tabs if pain score >4, Starting Bryanna 03/03/18 at 1033, Drug Monitoring Program: [facility]ist to [facility] medication order based on comorbities and indication. documented in this encounter Additional Health Concerns Assessment Noted Time PHQ-9 Depression Total Score: 7 04/07/2017 9:39 AM CDT documented as of this encounter Care Teams Associate Material Handler Relationship Specialty Start Date End Date Blaire Bundy P.A.-C. PCP - General 02/04/17 04/26/19 documented as of this encounter
--- OUTSIDE RECORDS SUMMARY | 2022-06-29 09:28 | XMS_ITS | Encounter Summary ---
:1985 Author Organization [facility] Address [address] [place] [address] Care Team Providers Name Role Phone Blaire Bundy P.A.-C. Primary Care Provider [phone] Reason for Referral Outpatient (Routine) - Closed Specialty Diagnoses / Procedures Referred By Contact Refer red To Contact Diagnoses Gallstone Edd Moeller D.O. [facility] Region Procedures FL Fluoro Less Than 1 Hour TX FLUOROSCOPY EXAM UP TO 1 HR HC FLUOROSCOPY EXAM UP TO 1 HR TX FLUOROSCOPY EXAM UP TO 1 HR [address] [address] Referral ID Status Reason Start Date Expiration Date Visits Requ ested Visits Authorized [id number] Closed 03/03/2018 03/03/2019 1 1 Reason for Visit Auth/Cert Specialty Diagnoses / Procedures Referred By Contact Refer red To Contact Diagnoses Gallstone With Common Bile Duct Stone Procedures [place] LAPAROSCOPY CHOLECYST W CHOLNG LAPAROSCOPIC CHOLECYSTECTOMY WITH CHOLANGIOGRAM Referral ID Status Reason Start Date Expiration Date Visits Requ ested Visits Authorized [id number] 1 1 Encounter Details Date Type Department Care Team Description 03/03/2018 Hospital Encounter Department of Radiology Raphael Moeller, [place] [address] [place] [address] [address] [address] [phone] (Wo rk) Social History Tobacco Use Types [...] or relatives? How often do you attend rastafarian or advent More than 4 time s per year 07/09/2020 services? Do you belong to any clubs or organizations No 04/19/2019 such as rastafarian groups, unions, fraternal or athletic groups, or [...] score >4). documented as of this encounter Plan of Treatment Scheduled Procedures Name Priority Associated Diagnoses Date/Time COLONOSCOPY Diarrhea documented as of this encounter Procedures Procedure Name Priority Date/Time Associated Comments Diagnosis FL FLUORO LESS RAD - Routine 03/03/2018 10:00 Gallstone Results for this THAN 1 HOUR (most inpatients AM CDT procedure a re in and all the results outpatients) section. documented in this encounter Results FL Fluoro Less Than 1 Hour (03/03/2018 10:00 AM CDT) Specimen (Source) Anatomical Location Collection Method / Collectio n Time Received Time / Laterality Volume Narrative [id number] - 03/03/2018 10:01 AM CDT This exam does not require a radiologist review or interpretation. Please refer to the patient? s medical record on this date for clinical details. Edd Moeller D.O. IMSendy FLUOROSCOPY PROCEDURES Performing Organization Address City/State/ZIP Code Phon e Number [id number] NA documented in this encounter Visit Diagnoses Diagnosis Gallstone documented in this encounter Additional Health Concerns Assessment Noted Time PHQ-9 Depression Total Score: 7 04/07/2017 9:39 AM CDT documented as of this encounter Care Teams Assistant Professor Of Economics Relationship Specialty Start Date End Date Blaire Bundy P.A.-C. PCP - General 02/04/17 04/26/19 documented as of this encounter
--- OUTSIDE RECORDS SUMMARY | 2022-06-29 09:28 | XMS_ITS | Encounter Summary ---
:1985 Author Organization [facility] Address [address] [place] [address] Care Team Providers Name Role Phone Blaire Bundy P.A.-C. Primary Care Provider Reason for Referral Outpatient (Routine) - Closed Specialty Diagnoses / Procedures Referred By Contact Refer red To Contact General Surgery Diagnoses Gallstone With Common Bile Duct Stone Blaire Bundy [facility] Alicia BuckleyABrittaney-CBrittaney [address] [place], [place] [address] Referral ID Status Reason Start Date Expiration Date Visits V isits Requested Authorized [id number] Closed Specialty 11/19/2017 05/18/2018 1 1 Services Required Reason for Visit Reason Comments Post Hospital Follow-up Patient discharged from [place] on 11/13/17. 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 Patient is complaining of feeling tired and short of breath Encounter Details Date Type Department Care Team Description 11/19/2017 Office Visit Department of Family Blaire Bundy (Primary Dx); Medicine, Jose Knox Hypovolemic Shock (HCC); Clinic, in [address] Gallstone With Common Bile Duct Stone; [place], [place] Counseling Control [address] [place] [address] [place], [place] [phone] (Work) [phone] Social History Tobacco Use Types Packs/Day Years [...] or relatives? How often do you attend buddhism or pentecostal More than 4 time s per year 07/09/2020 services? Do you belong to any clubs or organizations No 04/19/2019 such as buddhism groups, unions, fraternal or athletic groups, or [...] Sign Reading Time Taken Comments Blood Pressure 137/68 11/19/2017 10:58 AM CDT Pulse 81 11/19/2017 10:58 AM CDT Temperature 36.4 ??C (97.5 ??F) 11/19/2017 10:58 AM CDT Respiratory Rate 20 11/19/2017 10:58 AM CDT Oxygen Saturation 98% 11/19/2017 10:58 AM CDT Inhaled Oxygen Concentration - - Weight 143 kg (314 lb 2.5 oz) 11/19/2017 10:58 AM CDT Height - - Body Mass Index 57.44 11/12/2017 1:32 PM CDT documented in this encounter Progress Notes Blaire Thornton P.A.-C. - 11/19/2017 10:45 AM CDT SUBJECTIVE CHIEF COMPLAINT / REASON FOR VISIT Carol Cooley is a 31 y.o. female who presents for evaluation of Post Hospital Follow-up (Patient discharged from [place] on 11/13/17. Was in for Upper GI bleed from post-sphincterotomy bleed.. Patient is complaining of feeling tired and short of breath). HISTORY OF PRESENT ILLNESS Carol is a 31 year old female who presents today for follow up from the hospital (admitted 11/12/17and discharged 11/13/17- follow up call by RN on 11/15/17). Patient had recent history of choledocholithiasis requiring ERCP for removal of a gallstone. Following this she had 50 20 episodes of melena along with tachycardia and anemia, requiring 3 units of blood to be transfused. She was readmitted for an EGD which showed a bleeding duodenal ulcer. She was then transferred from [facility] to [facility] for further treatment. In [facility] the patient had another EGD which showed no active bleeding but a clip was placed over a visible vessel. Upon discharge she had no melena. Prior to hospitalization patient was to schedule a cholecystectomy for cholelithiasis. This needs christine rescheduled still. The patient indicates she has had no melena since discharge. She continues to feel short of breath with fatigue. She is taking omeprazole currently. Of note the patient did start her menstrual period this week. The following portions of the patient's history were reviewed and updated as appropriate: allergies,current medications, medical history, social history, surgical history and problem list. Brief Review of Systems: A brief review of systems was negative except for that mentioned in the history of present of illness. Answers for HPI/ROS submitted by the patient on 11/19/2017 No general issues: Yes No eye issues: Yes No ENT issues: Yes No heart issues: Yes Shortness of breath: Yes Abdominal (belly) pain or cramping: Yes Heartburn: Yes Nausea: Yes Diarrhea: Yes Blood in stool: Yes- resolving No muscle/bone issues: Yes No skin issues: Yes Headache: Yes No mental health issues: Yes No blood/lymph issues: Yes No urinary/reproductive issues: Yes Current Outpatient Medications Medication Sig ??? acetaminophen (for_TYLENOL) 500 mg tablet Take 1-2 tablets by mouth every 6 (six) hours as needed. ??? omeprazole (for_PriLOSEC) 40 mg capsule Take 40 mg by mouth every morning before breakfast. Reflux/GERD Allergies Allergen Reactions ??? Penicillins Other (see comments) Does not recall reaction- reports reaction during childhood. OBJECTIVE PHYSICAL EXAM BP 137/68 (BP Location: Left arm, Patient Position: Sitting, Cuff Size: Regular) Pulse 81 Temp 36.4 ??C (Temporal) Resp 20 Wt (!) 142.5 kg LMP 11/13/2017 SpO2 98% ? No BMI 57.44 kg/m?? Body mass index is 57.44 kg/m??. GENERAL: Patient is in no distress, appears fatigued. HEENT: Normocephalic. NECK: Supple NEURO: Alert and nonfocal, moving all 4 extremities PSYCH: Appropriate affect DIAGNOSTICS: Results for orders placed or performed in visit on 11/19/17 CBC with Differential Result Value Ref Range Hemoglobin 8.6 (L) 11.6 - 15.0 g/dL Hematocrit 27.7 (L) 35.5 - 44.9 % Erythrocytes 3.10 (L) 3.92 - 5.13 x10(12)/L MCV 89.4 78.2 - 97.9 fL RBC Distrib Width 14.9 12.2 - 16.1 % Platelet Count 355 157 - 371 x10(9)/L Leukocytes 5.6 3.4 - 9.6 x10(9)/L Neutrophils 2.80 1.56 - 6.45 x10(9)/L Lymphocytes 2.17 0.95 - 3.07 x10(9)/L Monocytes 0.44 0.26 - 0.81 x10(9)/L Eosinophils 0.22 0.03 - 0.48 x10(9)/L Basophils 0.01 0.01 - 0.08 x10(9)/L ASSESSMENT / PLAN #1 Melena Melena is gone now. Patient continues to have a low hemoglobin however does stabilized. I reassured her that it will improve slowly, but it will take time. #2 Hypovolemic Shock (HCC) Much improved. Patient's blood pressure is now normal. #3 Gallstone With Common Bile Duct Stone She continues to have cholelithiasis as she has been unable to schedule surgery. We discussed her recovery and potential plan for surgery in 3-6 months once her anemia has resolved and she is no longersymptomatic. #4 Counseling Control Patient is late for her Depo-Provera shot by almost a month. We discussed what she would like to do today and she decides she does not wish to move forward with the shot today. She will decide what shewould like to do in the future for her control method but does not wish do move forward with Depo Provera today. Blaire Thornton P.A.-C. documented in this encounter Plan of Treatment Scheduled Procedures Name Priority Associated Diagnoses Date/Time COLONOSCOPY Diarrhea Scheduled Referrals Name Type Priority Associated Diagnoses Order S [facility] General Surgery - Outpatient Referral Routine Gallstone With E xpected: General consult Common Bile Duct 12/21/19 18 (clinic) Stone (Approximate), Expires: 11/19/2020 documented as of this encounter Procedures Procedure Name Priority Date/Time Associated Diagnosis Comme nts CBC WITH Routine 11/19/2017 11:35 AM Melena Results for this DIFFERENTIAL, B CDT Hypovolemic Shock procedu re are in (HCC) the results section. documented in this encounter Results (ABNORMAL) CBC with Differential (11/19/2017 11:35 AM CDT) [facility] gist Method Time Signature Hemoglobin 8.6 (L) 11.6 - 11/19/2017 [facility] 15.0 g/dL 11:58 AM [facility] Hematocrit 27.7 (L) 35.5 - 11/19/2017 [facility] 44.9 % 11:58 AM [facility] Erythrocytes 3.10 (L) 3.92 - 11/19/2017 [facility] 5.13 11:58 AM T [facility] x10(12)/L [facility] MCV 89.4 78.2 - 11/19/2017 [facility] 97.9 fL 11:58 AM [facility] RBC Distrib Width 14.9 12.2 - 11/19/2017 [facility] 16.1 % 11:58 AM [facility] Platelet Count 355 157 - 371 11/19/2017 [facility] x10(9)/L 11:58 AM [facility] Leukocytes 5.6 3.4 - 9.6 11/19/2017 [facility] x10(9)/L 11:58 AM [facility] Neutrophils 2.80 1.56 - 11/19/2017 [facility] 6.45 11:58 AM CDT [facility]ALTH x10(9)/L [facility] [place] [facility] Lymphocytes 2.17 0.95 - 11/19/2017 [facility] 3.07 11:58 AM CDT HEALTH x10(9)/L [facility] [place] [facility] Monocytes 0.44 0.26 - 11/19/2017 [facility] 0.81 11:58 AM CDT HEALTH x10(9)/L [facility] [place] [facility] Eosinophils 0.22 0.03 - 11/19/2017 [facility] 0.48 11:58 AM CDT HEALTH x10(9)/L [facility] [place] [facility] Basophils 0.01 0.01 - 11/19/2017 [facility] 0.08 11:58 AM CDT HEALTH x10(9)/L [facility] [place] [facility] Specimen Anatomical Collection Method Collection Time Receive d Time (Source) Location / / Volume Laterality Blood (Blood, 11/19/2017 11:35 11/19/2017 Venous) AM CDT 11:50 AM CDT Blaire Bundy P.A.-C. LAB BLOOD ADD-ON Performing Organization Address City/State/ZIP Code Phon e Number [facility]- [id number] [place] [phone] [place] [address] LAB documented in this encounter Visit Diagnoses Diagnosis Melena - Primary Hypovolemic Shock (HCC) Gallstone With Common Bile Duct Stone Counseling Control documented in this encounter Additional Health Concerns Assessment Noted Time PHQ-9 Depression Total Score: 7 04/07/2017 9:39 AM CDT documented as of this encounter Care Teams Missing Persons Investigator Relationship Specialty Start Date End Date Blaire Bundy P.A.-C. PCP - General 02/04/17 04/26/19 documented as of this encounter
--- OUTSIDE RECORDS SUMMARY | 2022-06-29 09:28 | XMS_ITS | Encounter Summary ---
:1985 Author Organization [facility] Address [address] [place] [address] Care Team Providers Name Role Phone Blaire Bundy P.A.-C. Primary Care Provider Encounter Details Date Type Department Care Team Description 02/09/2018 Clinical Communication Department of General Aline Dunbar [facility] [place] [phone] Social History Tobacco Use Types Packs/Day Years [...] or relatives? How often do you attend hoahaoism or taoist More than 4 time s per year 07/09/2020 services? Do you belong to any clubs or organizations No 04/19/2019 such as hoahaoism groups, unions, fraternal or athletic groups, or [...] this encounter Miscellaneous Notes Telephone Encounter - Aline Celaya L.PBrittaneyNBrittaney - 02/09/2018 3:17 PM CDT Scheduled Laparoscopic cholecystectomy with interoperative cholangiogram on 03/03/[address] to be performed by Dr. Moeller. documented in this encounter Plan of Treatment Scheduled Procedures Name Priority Associated Diagnoses Date/Time COLONOSCOPY Diarrhea documented as of this encounter Visit Diagnoses Not on filedocumented in this encounter Additional Health Concerns Assessment Noted Time PHQ-9 Depression Total Score: 7 04/07/2017 9:39 AM CDT documented as of this encounter Care Teams Press Feeder Relationship Specialty Start Date End Date Blaire Bundy P.A.-C. PCP - General 02/04/17 04/26/19 documented as of this encounter
--- OUTSIDE RECORDS SUMMARY | 2022-06-29 09:28 | XMS_ITS | Encounter Summary ---
:1985 Author Organization [facility] Address [address] [place] [address] Care Team Providers Name Role Phone Blaire Bundy P.A.-C. Primary Care Provider [phone] Reason for Visit Auth/Cert Specialty Diagnoses / Procedures Referred By Contact Refer red To Contact Diagnoses Gallstone With Common Bile Duct Stone Procedures OR LAPAROSCOPY CHOLECYST W CHOLNG LAPAROSCOPIC CHOLECYSTECTOMY WITH CHOLANGIOGRAM Referral ID Status Reason Start Date Expiration Date Visits Requ ested Visits Authorized [id number] 1 1 Encounter Details Date Type Department Care Team Description 03/03/[address] [facility] MAIN OR Matthew Plascencia M.D. [address] [facility] [address] [facility] [place] [address] [address] [place] [phone] (Wo rk) Anesthesia Record Procedure Summary Procedure Name Responsible Anesthesia Start Anesthesia Stop Anesthesiologist Time Time LAPAROSCOPIC Matthew Plascencia M.D. 03/03/18 0827 03/03/18 10 23 CHOLECYSTECTOMY POSSIBLE CHOLANGIOGRAM Events Date Time Event Comment 03/03/2018 0740 0827 An Start Machine/Equipmen t Checked Infection Precautions Foll owed Procedure/Site Verified NPO Sta tus Verified Supine Standard ASA Mon itors Applied 0827 In Room 0835 An Induction 0837 An Intubation 0840 Turnover to Proceduralist 0858 Proc Start 1006 Turnover to ANE Staff 1015 Airway Removal Criteria Met 1015 Extubation/Airway Removed 1018 an stop data 1018 Proc Fin 1019 Out of Room 1023 An End I completed my h andoff to the receiving staff during whi ch we 1. Identified the patient 2. Ident ified the responsible provider 3. Revi ewed the pertinent medical history 4. Discussed the surgical course 5. Review ed intra-op anesthesia management and i ssues during anesthesia 6. Set expectati ons for post-procedure period 7. Allowe d opportunity for questions and ac knowledgement of understanding. Name Total midazolam 1 mg/mL injection 4 mg lidocaine 2% (mg) injection 60 mg propofol 10 mg/mL 200 mg succinylcholine 20 mg/mL injection 140 mg rocuronium 10 mg/mL injection 60 mg ondansetron 4 mg/2 mL injection 4 mg sugammadex 100 mg/mL injection 300 mg metroNIDAZOLE in NaCl (iso-osm) IVPB 500 mg (FLAGYL) 5 00 mg HYDROmorphone 1 mg/mL injection 2 mg ketamine 10 mg/mL injection 50 mg dexamethasone 4 mg/mL injection 4 mg ketorolac 30 mg injection 30 mg lactated ringers 800 mL Agents No agents on file. Blood No blood administrations on file. Lines, Drains, and Airways Type Details Placement Removal (RETIRED) Incision 09/08/17; 1718; Abdomen; 09/08/17 1718 by 1418 by and dermabond; Antionette Cooper CRT, R.N. [facility] W[facility] ADH NEONAT 2X3.75 d, Schedul ing (x3); 05/13/21 (Removed Automate d Batch Job by background completion utility); 1418 (Removed by background completion utility) Peripheral IV Placement Date: 03/03/18; 03/03/18727 by 03/03 1241 by Placement Time: 727; Perri Cooper, R.N. Melany Ku, Catheter Size: 20 G; R.N. Orientation: Right; Location: Antecubital; Site Prep: Chlorhexidine (Preferred); Insertion Attempts: 1; Removal Date: 03/03/18; Removal Time: 1241 ETT Placement Date: 03/03/18; 03/03/18 0837 by 03/03 1015 by Placement Time: 0837 Rosalee Xiong, HOSTEL MANAGER, Rosalee Xiong, HOSTEL MANAGER, (created via procedure FITTING ROOM OPERATOR FITTING ROOM OPERATOR documentation); Mask Ventilation: Oral/Nasal airway needed; Type: Standard ETT; Single Lumen Tube Size: 7 mm; Cuffed: Yes; Location: Oral; Removal Date: 03/03/18; Removal Time: 1015 (RETIRED) Incision 03/03/18; 952; Abdomen; 03/03/18 0953 by 1418 by Darius Coyle CRT, R.N. [facility] G[facility] STRL 8PLY 2X2; d, Scheduling 05/13/21 (Removed by Automated [facility] Job background completion utility); 1418 (Removed by background completion utility) documented in this encounter Social History Tobacco [...] or relatives? How often do you attend alevism or episcopalian More than 4 time s per year 07/09/2020 services? Do you belong to any clubs or organizations No 04/19/2019 such as alevism groups, unions, fraternal or athletic groups, or [...] as of this encounter OR Notes Anesthesia Postprocedure Evaluation - Matthew Plascencia M.D. - 03/03/2018 12:13 PM CDT Patient: Carol Cooley Procedure Summary Date: 03/03/18 Room / Location: OR 03 [facility] 1404 / [facility] OR Anesthesia Start: 826 Anesthesia Stop: 1022 Procedure: LAPAROSCOPIC CHOLECYSTECTOMY POSSIBLE CHOLANGIOGRAM (N/A ) Diagnosis: Gallstone With Common Bile Duct Stone (Gallstone With Common Bile Duct Stone [K80.70]) Surgeon: Edd Moeller D.O. Responsible Provider: Matthew Plascencia M.D. Anesthesia Type: general ASA Status: 3 Anesthesia Type: general Last vitals BP 139/81 (03/03/18 1145) Pulse 65 (03/03/18 1200) Resp 18 (03/03/18 1023) SpO2 98 % (03/03/18 1200) Anesthesia Post Evaluation 03/03/2018 12:13 PM Patient Disposition: dismissal Cardiovascular status: hemodynamics (HR & BP) acceptable Respiratory status: patent airway with spontaneous effort Temperature: normothermic Oxygen requirements: nasal cannula Level of consciousness: awake Pain score: pain adequately controlled and/or at baseline Post Op nausea/vomiting: none Hydration status: euvolemic Anesthesia Procedure Notes - Rosalee Xiong APRN, CRNA - 03/03/2018 8:54 AM CDT Associated Order(s): AIRWAY MANAGEMENT Airway Date/Time: 03/03/2018 8:37 AM Patient location during procedure: OR / Procedure Area Performed by: ROSALEE XIONG Authorized by: MATTHEW PLASCENCIA Pre procedure details Pre evaluation for airway management: procedure Urgency: elective Sedation level: anesthetized Preoxygenation: bag valve mask Procedure details Mask difficulty assessment: oral/nasal airway needed Final airway type: video laryngoscope Laryngeal Manipulation: no Final airway difficulty of direct laryngoscopy (DL): 0-easy Final best view of glottic structures - Cormack/Lehane Score: grade 1 ETT location: oral VL device: storz CMAC Storz CMAC blade size: D - adult Adult tube size: 7 Adult ETT distance at teeth/gum: 20 Oral tube type: standard ETT Cuffed: yes Number of attempt to successful placement: 1 Airway confirmation: bilateral breath sounds, positive ETCO2 and bilateral chest rise Other previous techniques attempted: none Post procedure details Procedure outcome: successful Airway event: no complications Anesthesia Preprocedure Evaluation - Matthew Plascencia M.D. - 02/24/2018 11:44 AM CDT Anesthesia Pre-Evaluation Pertinent components of the patient's history including current problem list, medical history, surgical history, family history, social history, medications and allergies were reviewed and updated as appropriate. The patient was examined and the Pre-op diagnosis, planned procedure, and H&P were reviewed and remain unchanged. PROBLEM LIST Relevant Problems PSYCH (+) Depression Major GI (+) Gastroesophageal Reflux Disease NOS Other (+) Abuse Tobacco Smoking (+) Apnea Sleep Obstructive (+) Attention Deficit With Hyperactivity Disorder (+) Body Mass Index 50.0 To 59.9 Adult (HCC) (+) Migraine Headache S/p ERCP-10/2017- general-ETT, easy BMV, VL x 1 OBJECTIVE PHYSICAL EXAMINATION Airway (HEENT) Mallampati: III TM Distance: >3 FB Neck ROM: Full Cardiovascular Rhythm: Regular Rate: Normal Cardiovascular Assessment: Normal Pulmonary Pulmonary Assessment: Clear Neurological Normal Dental Normal General / Constitutional Normal ASSESSMENT / PLAN ANESTHESIA PLAN ASA: 3 Anesthesia Plan: general Patient seen and allergies reviewed; anesthesia plan and risks discussed directly with patient / legal guardian, or through an shrimp picker; patient evaluated and approved for anesthesia / sedation. The use of blood products not discussed documented in this encounter Plan of Treatment Scheduled Procedures Name Priority Associated Diagnoses Date/Time COLONOSCOPY Diarrhea documented as of this encounter Procedures Procedure Name Priority Date/Time Associated Comments Diagnosis LDA ANE ENDOTRACHEAL Routine 03/03/2018 8:54 AM R esults for this AIRWAY CDT procedure are i n the results section. documented in this encounter Results LDA ANE ENDOTRACHEAL AIRWAY (03/03/2018 8:54 AM CDT) Narrative Rosalee Xiong APRN, CRNA - 03/03/2018 8 :54 AM CDT Rosalee Xiong APRN, CRNA ? 03/03/2018 ??8:55 AM Airway Date/Time: 03/03/2018 8:37 AM Patient location during procedure: OR / Procedure Area Performed by: ROSALEE XIONG Authorized by: MATTHEW PLASCENCIA Pre procedure details ?? Pre evaluation for airway management : procedure ?? Urgency: elective ?? Sedation level: anesthetized ?? Preoxygenation: bag valve mask Procedure details ??Mask difficulty assessment: oral/nasa l airway needed ?? Final airway type: video laryngoscop e Laryngeal Manipulation: no ? Final airway difficulty of direct la ryngoscopy (DL): 0-easy ?? Final best view of glottic structure s - Cormack/Lehane Score: grade 1 ?? ETT location: oral ?? VL device: storz CMAC ?? Storz CMAC blade size: D - adult ?? Adult tube size: 7 ?? Adult ETT distance at teeth/gum: 20 ?? Oral tube type: standard ETT ?? Cuffed: yes ?? Number of attempt to successful plac ement: 1 ?? Airway confirmation: bilateral breat h sounds, positive ETCO2 and bilateral chest rise ?? Other previous techniques attempted: none Post procedure details ?? Procedure outcome: successful ? Airway event: no complications Procedure Note Rosalee Xiong, HOSTEL MANAGER, FITTING ROOM OPERATOR - 03/03/2018 8 :54 AM CDT Airway Date/Time: 03/03/2018 8:37 AM Patient location during procedure: OR / Procedure Area Performed by: ROSALEE XIONG Authorized by: MATTHEW PLASCENCIA Pre procedure details Pre evaluation for airway management: p rocedure Urgency: elective Sedation level: anesthetized Preoxygenation: bag valve mask Procedure details Mask difficulty assessment: oral/nasal airway needed Final airway type: video laryngoscope Laryngeal Manipulation: no Final airway difficulty of direct laryn goscopy (DL): 0-easy Final best view of glottic structures - Cormack/Lehane Score: grade 1 ETT location: oral VL device: storz CMAC Storz CMAC blade size: D - adult Adult tube size: 7 Adult ETT distance at teeth/gum: 20 Oral tube type: standard ETT Cuffed: yes Number of attempt to successful placeme nt: 1 Airway confirmation: bilateral breath s ounds, positive ETCO2 and bilateral chest rise Other previous techniques attempted: no ne Post procedure details Procedure outcome: successful Airway event: no complications Matthew Plascencia M.D. ANESTHESIA ORDERABLES documented in this encounter Visit Diagnoses Not on filedocumented in this encounter Administered Medications Inactive Administered Medications - up to 3 most recent administrations Medication Order MAR Action Action Date Dose Rate Site dexamethasone injection (DECADRON) Given 03/03/2018 8:51 AM CDT 4 mg As needed, Starting on Bryanna 03/03/18 at 0851, Anesthesia Intra-op HYDROmorphone injection (DILAUDID) Given 03/03/2018 9:00 AM CDT 1 mg As needed, moderate pain or score 4-6 of 10, Starting on Bryanna 03/03/18 at 0835, Anesthesia Intra-op Given 03/03/2018 8:35 AM CDT 1 mg ketamine injection (KETALAR) Given 03/03/2018 8:39 AM CDT 30 mg As needed, Starting on Bryanna 03/03/18 at 0835, Anesthesia Intra-op Given 03/03/2018 8:35 AM CDT 20 mg ketorolac injection (TORADOL) Given 03/03/2018 9:53 AM CDT 30 mg As needed, moderate pain or score 4-6 of 10, Starting on Bryanna 03/03/18 at 0953, Anesthesia Intra-op lactated ringers Rate/Dose Verify 03/03/2018 8:27 AM CDT 20 mL/hr, intravenous, Continuous, Starting on Bryanna 03/03/18 at 0700, Pre-Op New Bag 03/03/2018 7:29 AM CDT 20 mL/hr 20 mL/hr lidocaine (PF) (cardiac) injection Given 03/03/2018 8:35 AM CDT 60 mg intravenous, As needed, Starting on Bryanna 03/03/18 at 0835, Anesthesia Intra-op metroNIDAZOLE in NaCl (iso-osm) IVPB 500 mg Given 03/03/2018 8:44 AM CDT 500 mg (FLAGYL) 500 mg, intravenous, at 200 mL/hr, Administer over 30 Minutes, Once, On Bryanna 03/03/18 at 0715, For 1 dose, Intra-Op, Preoperatively within 1 hour prior to surgical incision., Indications: Prophylaxis, surgical midazolam (PF) injection (VERSED) Given 03/03/2018 8:35 AM CDT 4 mg intravenous, As needed, Starting on Bryanna 03/03/18 at 0835, Anesthesia Intra-op ondansetron (PF) injection (ZOFRAN) Given 03/03/2018 8:51 AM CDT 4 mg intravenous, As needed, nausea, vomiting, Starting on Bryanna 03/03/18 at 0851, Anesthesia Intra-op propofol injection (DIPRIVAN) Given 03/03/2018 8:35 AM CDT 200 mg intravenous, As needed, Starting on Bryanna 03/03/18 at 0835, Anesthesia Intra-op rocuronium injection (ZEMURON) Given 03/03/2018 9:25 AM CDT 10 mg intravenous, As needed, Starting on Bryanna 03/03/18 at 0835, Anesthesia Intra-op Given 03/03/2018 8:45 AM CDT 40 mg Given 03/03/2018 8:35 AM CDT 10 mg succinylcholine-0.9% NaCl (PF) injection Given 03/03/2018 8:35 A M CDT 140 mg (ANECTINE) intravenous, As needed, Starting on Bryanna 03/03/18 at 0835, Anesthesia Intra-op sugammadex injection (BRIDION) Given 03/03/2018 9:56 AM CDT 300 mg As needed, Starting on Bryanna 03/03/18 at 0945, Anesthesia Intra-op documented in this encounter Additional Health Concerns Assessment Noted Time PHQ-9 Depression Total Score: 7 04/07/2017 9:39 AM CDT documented as of this encounter Care Teams Wet Process Miller Relationship Specialty Start Date End Date Blaire Bundy P.A.-C. PCP - General 02/04/17 04/26/19 documented as of this encounter
--- OUTSIDE RECORDS SUMMARY | 2022-06-29 09:28 | XMS_ITS | Encounter Summary ---
:1985 Author Organization [facility] Address [address] [place] [address] Care Team Providers Name Role Phone Blaire Bundy P.A.-C. Primary Care Provider [phone] Reason for Referral Outpatient (Routine) - Closed Specialty Diagnoses / Procedures Referred By Contact Refer red To Contact General Surgery Diagnoses Gallstone With Common Bile Duct Stone par review Jaquan Monahan [facility] Region Procedures GNS POST OP D.O. [address] [place] [address] Referral ID Status Reason Start Date Expiration Date Visits Requ ested Visits Authorized [id number] Closed 03/03/2018 03/03/2019 1 1 Reason for Visit Auth/Cert Specialty Diagnoses / Procedures Referred By Contact Refer red To Contact Diagnoses Gallstone With Common Bile Duct Stone Procedures [place] LAPAROSCOPY CHOLECYST W CHOLNG LAPAROSCOPIC CHOLECYSTECTOMY WITH CHOLANGIOGRAM Referral ID Status Reason Start Date Expiration Date Visits Requ ested Visits Authorized [id number] 1 1 Encounter Details Date Type Department Care Team Description 03/03/2018 Hospital Encounter [facility] OR Jaquan Monahan With [address] P, D.OBrittaney Common Bile Duct [place] [address] [place] [address] [address] [phone] [place], [place] [id number] Social History Tobacco Use Types Packs/Day Years [...] or relatives? How often do you attend christianity or sabianism More than 4 time s per year 07/09/2020 services? Do you belong to any clubs or organizations No 04/19/2019 such as christianity groups, unions, fraternal or athletic groups, or [...] Sign Reading Time Taken Comments Blood Pressure 139/81 03/03/2018 11:45 AM CDT Pulse 65 03/03/2018 12:00 PM CDT Temperature 36.2 ??C (97.2 ??F) 03/03/2018 7:10 AM CDT Respiratory Rate 18 03/03/2018 10:23 AM CDT Oxygen Saturation 98% 03/03/2018 12:00 PM CDT Inhaled Oxygen Concentration - - Weight 144 kg (317 lb 14.5 oz) 03/03/2018 6:59 AM CDT Height 157.5 cm (5' 2.01) 03/03/2018 6:59 AM CDT Body Mass Index 58.13 03/03/2018 6:59 AM CDT documented in this encounter Discharge Instructions AttachmentsThe following attachments cannot be sent through Care Everywhere.Home Care Following Gallbladder Surgery (Faroese)documented in this encounter Medications at Time of [...] Role: * Jaquan Monahan D.O. - Primary Top Edge Beveler: Naye Stockton L.P.N. Anesthesia Type: General Pre-Operative [...] of these were recovered in the suction farmworker machine. The gallbladder was placed in Endo-Catch bag [...] Name Type Priority Associated Diagnoses Order S [facility] General Surgery Outpatient Referral Routine Gallstone With [...] Component Value Ref Test Analysis Performed At [facility] Method Time Signature PATHOLOGY Patient Name: [facility] [employer] MR#: [id number] LAUREL Submitting Physician: JAQUAN MONAHAN DO [id number] Specimen #[id number] Performing Lab: ??[facility] ? [address] [facility] [address] Source: Gallbladder Clinical History/Pre-Op Gallstone with common [...] the cystic duct. ??The mucos a is gatica and trabeculated. ??The mucosal wall measures 0.2 cm. ??Antitank Assault Gunner sections are submitted in cassette A1. KG/ps ?? Diagnosis Gallbladder, cholecystectomy: CHOLELITHIASIS. Electronically Signed By USAMA MALDONADO MD - 03/04/2018 pjs/03/04/2018 Specimen (Source) Anatomical Collection Method Collection Time Re ceived Time Location / / Volume Laterality Tissue 03/03/2018 9:54 AM (Gallbladder) CDT Jaquan Monahan D.O. LAB SURG PATH ORDERABLES Performing Organization Address City/State/[facility] Phon e Number COPATH [address] [address] documented in this encounter Visit Diagnoses Diagnosis [...] 03/03/18 at 0700, For 1 dose, Pre-Op ciprofloxacin in D5W New Bag 03/03/2018 7:15 [...] Intra-Op, Administer prior to induction of anesthesia. lactated ringers Rate/Dose Verify 03/03/2018 8:27 AM CDT 20 mL/hr, intravenous, Continuous, Starting on Bryanna 03/03/18 at 0700, Pre-Op New Bag 03/03/2018 7:29 AM CDT 20 mL/hr 20 mL/hr metoprolol tablet 12.5 mg (LOPRESSOR) 12.5 mg, [...] (COMPLETED) 730 (Given - Provider: Perri Cooper RRoverto) 2.5 mg, nebulization, Once, Bryanna 03/03/18 at [...] 5,000 Units (COMPLETED) 730 (Given - Provider: Perri Cooper R.N.) 5,000 Units, subcutaneous, Once, Bryanna 02/20 10/10 at 0715, For 1 dose, Intra-Op, Administer prior to induction of anesthesia. lidocaine 10 mg/mL (1 %) injection 1 mL (XYLOCAINE) 07 (Due) 1 mL, infiltration, Once, Bryanna 03/03/18 at 0700, For 1 dose, Pre-Op, May admin up to 1 mL at the site of IV site if not allergic to lidocaine metroNIDAZOLE in NaCl (iso-osm) IVPB 500 mg (FLAGYL) (COMPLETED) 843 (Given - Provider: Rosalee Desir APRN, ASSET COORDINATOR) 500 mg, intravenous, at 200 mL/hr, Admin ister over 30 Minutes, Once, Bryanna 18 at 0715, For 1 dose, Intra-Op, Preoperatively [...] 0729 (New Bag - Provider: Perri Cooper RBrittaneyNBrittaney)0827 (Rate/Dose Verify - Provider: Rosalee Desir APRN, BRENDA)1019 (Anesthesia Volume Adjustment - Provider: Rosalee Desir APRN, BRENDA)1242 (Stopped - Provider: Melany Lira RBrittaneyNBrittaney) 20 mL/hr, intravenous, at 20 mL/hr, Cont [...] (SUBLIMAZE) 1050 (Given - Provider: Melany Lira RBrittaneyNBrittaney)1052 (Given - Provider: Melany Lira R.N.)1054 (Given - Provider: Melany Lira RBrittaneyN.)1058 (Given - Provider: Melany Lira R.NBrittaney) 25 [...] solution (CANCELED) 0959 (Given - Provid er: Jaquan Monahan D.O.) As needed, Starting Bryanna 03/03/18 at 0959, Intra-Op lidocaine 10 mg/mL (1 %) injection (XYLOCAINE) (CANCELED) 0959 (Given - Provider: Jaquan Monahan D.O.) As needed, Starting Bryanna 03/03/18 at 0959, [...] 1033, Drug Monitoring Program: Pharmacist to a djust medication order based on comorbities and indication. documented in this encounter Additional Health Concerns Assessment Noted Time PHQ-9 Depression Total Score: 7 04/07/2017 9:39 AM CDT documented as of this encounter Care Teams It Application Development Manager Relationship Specialty Start Date End Date Blaire Bundy P.A.-C. PCP - General 02/04/17 04/26/19 documented as of this encounter
--- OUTSIDE RECORDS SUMMARY | 2022-06-29 09:28 | XMS_ITS | Encounter Summary ---
:1985 Author Organization [facility] Address [address] [place] [address] Care Team Providers Name Role Phone Blaire Bundy P.A.-C. Primary Care Provider Reason for Visit Reason Comments Other right big toe infection? Appointment Request (Routine) - Closed Specialty Diagnoses / Procedures Referred By Contact Refer red To Contact Family Medicine Referral ID Status Reason Start Date Expiration Date Visits Requ ested Visits Authorized [id number] Closed 11/22/2017 05/21/2018 1 1 Encounter Details Date Type Department Care Team Description 11/23/2017 Office Visit Department of Family Blaire Bundy Cell ulitis Toe Right Medicine, [place] [facility], in [address] [phone] [id number] (Work) [phone] Social History Tobacco Use Types Packs/Day Years [...] or relatives? How often do you attend congregation or pentecostal More than 4 time s per year 07/09/2020 services? Do you belong to any clubs or organizations No 04/19/2019 such as congregation groups, unions, fraternal or athletic groups, or [...] Sign Reading Time Taken Comments Blood Pressure 139/74 11/23/2017 11:17 AM CDT Pulse 105 11/23/2017 11:17 AM CDT Temperature 36 ??C (96.8 ??F) 11/23/2017 11:17 AM CDT Respiratory Rate 18 11/23/2017 11:17 AM CDT Oxygen Saturation - - Inhaled Oxygen Concentration - - Weight 143 kg (314 lb 2.5 oz) 11/23/2017 11:17 AM CDT Height 157.5 cm (5' 2.01) 11/23/2017 11:17 AM CDT Body Mass Index 57.44 11/23/2017 11:17 AM CDT documented in this encounter Progress Notes Blaire Thornton P.A.-C. - 11/23/2017 11:15 AM CDT SUBJECTIVE CHIEF COMPLAINT / REASON FOR VISIT Carol Cooley is a 31 y.o. female who presents for evaluation of Other (right big toe infection?). HISTORY OF PRESENT ILLNESS Carol is a 31 year old female who presents today for evaluation of infection of the right 1st toe. The patient notes for the past 1-2 weeks she has had pain and throbbing in the right 1st toe. This has recently worsened. She has had drainage from the nail bed and spreading redness along the tip of the toe. She has been soaking the toe and using topical antibiotic ointment, with some improvement but is worried she needs an antibiotic. The following portions of the patient's history were reviewed and updated as appropriate: allergies,current medications, medical history, social history and problem list. Brief Review of Systems: A brief review of systems was negative except for that mentioned in the history of present of illness. Current Outpatient Medications Medication Sig ??? acetaminophen (for_TYLENOL) 500 mg tablet Take 1-2 tablets by mouth every 6 (six) hours as needed. ??? omeprazole (for_PriLOSEC) 40 mg capsule Take 40 mg by mouth every morning before breakfast. Reflux/GERD ??? cephalexin (for_KEFLEX) 500 mg capsule Take 1 capsule (500 mg total) by mouth 3 (three) times a day for 10 days. Allergies Allergen Reactions ??? Penicillins Other (see comments) Does not recall reaction- reports reaction during childhood. OBJECTIVE PHYSICAL EXAM BP 139/74 Pulse 105 Temp 36 ??C (Temporal) Resp 18 Ht 157.5 cm Wt (!) 142.5 kg LMP 11/13/2017 BMI 57.44 kg/m?? Body mass index is 57.44 kg/m??. GENERAL: Patient is in no distress. HEENT: Normocephalic. PERRL NECK: Supple EXTREMITIES: Right foot: 1st toenail medial nail bed is swollen and tender to palpation. Erythema over the distaltoe with warmth to touch. NEURO: Alert and nonfocal, moving all 4 extremities PSYCH: Appropriate affect ASSESSMENT / PLAN #1 Cellulitis Toe Right Patient has erythema suggestive of cellulitis of the right big toe. She was given Keflex for treatment. Of note patient does have an allergy to penicillins with unknown reaction, however she has had cephalosporins in the past without any problems. She was instructed to continue soaking the toe and follow up as needed for any concerns. Blaire Thornton P.A.-C. documented in this encounter Plan of Treatment Scheduled Procedures Name Priority Associated Diagnoses Date/Time COLONOSCOPY Diarrhea documented as of this encounter Visit Diagnoses Diagnosis Cellulitis Toe Right - Primary documented in this encounter Additional Health Concerns Assessment Noted Time PHQ-9 Depression Total Score: 7 04/07/2017 9:39 AM CDT documented as of this encounter Care Teams Flap Presser Relationship Specialty Start Date End Date Blaire Bundy P.A.-C. PCP - General 02/04/17 04/26/19 documented as of this encounter
--- OUTSIDE RECORDS SUMMARY | 2022-06-29 09:29 | XMS_ITS | Encounter Summary ---
:1985 Author Organization [facility] Address [address] [place] [address] Care Team Providers Name Role Phone Blaire Bundy P.A.-C. Primary Care Provider Encounter Details Date Type Department Care Team Description 11/11/2017 Ancillary Procedure Department of Gastroenterology Social History [...] or relatives? How often do you attend moravian or church More than 4 time s per year 07/09/2020 services? Do you belong to any clubs or organizations No 04/19/2019 such as moravian groups, unions, fraternal or athletic groups, or [...] Date/Time Associated Comments Diagnosis GASTROENTEROLOGY IMAGE Routine 11/11/2017 3:55 Re sults for this EXAM PM CDT procedure are i n the results section. documented in this encounter Results Upper GI endoscopy-Gastroenterology Image Exam (11/11/2017 3:55 PM CDT) Specimen (Source) Anatomical Location Collection Method / Collectio n Time Received Time / Laterality Volume Narrative IIMS - 04/03/2022 6:56 AM CDT This order has been created and [...] documented as of this encounter Care Teams Gaming Department Head Relationship Specialty Start Date End Date Blaire Bundy PGladys. PCP - General 02/04/17 04/26/19 documented as of this encounter
--- OUTSIDE RECORDS SUMMARY | 2022-06-29 09:29 | XMS_ITS | Encounter Summary ---
:1985 Author Organization [facility] Address [address] [place] [address] Care Team Providers Name Role Phone Blaire Bundy P.A.-C. Primary Care Provider [phone] Reason for Visit Reason Comments Dizziness Black or Bloody Stool Nausea Rapid Heart Rate Auth/Cert Specialty Diagnoses / Procedures Referred By Contact Refer red To Contact Diagnoses Calculus Of Bile Duct Without Cholangitis Or Cholecystitis With Obstruction Procedures PA ERCP W BX ENDOSCOPIC RETROGRADE CHOLANGIOPANCREATOGRAPHY Referral ID Status Reason Start Date Expiration Date Visits Requ ested Visits Authorized [id number] 1 1 Encounter Details Date Type Department Care Team Description 11/11/2017 - [facility] Nuno Love M.D. [address] [place] [address] Radha (Primary Dx); 11/12/2017 Encounter Hospital, [place] Taryn Helm M.D. [address] [place] [address] Hypovolemic Shock (HCC); [facility], [facility] Third Floor [address] [place] [address] Social History Tobacco Use Types [...] How often do you attend islam or church More than 4 time s [...] Sign Reading Time Taken Comments Blood Pressure 125/72 11/12/2017 9:15 AM CDT Pulse 112 11/12/2017 8:15 AM CDT Temperature 36.9 ??C (98.4 ??F) 11/12/2017 9:06 AM CDT Respiratory Rate 18 11/12/2017 9:15 AM CDT Oxygen Saturation 98% 11/12/2017 8:15 AM CDT Inhaled Oxygen Concentration - - Weight 142 kg (313 lb 11.4 oz) 11/12/2017 7:00 AM CDT Height 157.5 cm (5' 2) 11/11/2017 2:52 PM CDT Body Mass Index 57.38 11/11/2017 2:52 PM CDT documented in this encounter Discharge Summaries Carson Lopez, JOSEFA, C.N.P. - 11/12/2017 8:55 AM CDT INPATIENT DISCHARGE SUMMARY BRIEF OVERVIEW Discharge Provider: Taryn Ozuna M.D. Primary Care Providers: Blaire Thornton P.A.-C. (General) [address] [place] [phone] Primary Care Provider Primary Care Provider Admission Date: 11/11/2017 Discharge Date: 11/12/2017 PRINCIPAL DIAGNOSIS Melena SECONDARY DIAGNOSES Active Problems: Hypovolemic Shock (HCC) Morbid obesity Resolved Problems: * No resolved hospital problems. * Operative Procedures: Scheduled (Blank), Completed (Comp) or Canceled (Can) Case IDs Date Procedure Surgeon Location Status [id number] 11/11/17 ESOPHAGOGASTRODUODENOSCOPY Rubio Baker M.D. [facility] Blank Past Medical History: Diagnosis Date ??? Sleep Apnea Past Surgical History: Procedure Laterality Date ??? ENDOSCOPIC RETROGRADE CHOLANGIOPANCREATOGRAPHY (ERCP) N/A 11/08/2017 Procedure: ENDOSCOPIC RETROGRADE CHOLANGIOPANCREATOGRAPHY; Surgeon: Rubio Baker M.D.; Location: [facility] OR ??? LAPAROSCOPIC APPENDECTOMY N/A 09/08/2017 Procedure: LAPAROSCOPIC APPENDECTOMY; Surgeon: Edd Moeller D.O.; Location: [facility] OR ??? OTHER CONVERTED SHX (SEE COMMENT) N/A 06/24/2017 >1. Normal spontaneous vaginal delivery. 2. Second-degree midline laceration and repair. DISCHARGE DISPOSITION [facility] [2] OUTPATIENT FOLLOW UP No future appointments. DISCHARGE MEDICATIONS Your medication list CONTINUE taking these medications Instructions Last Dose Given Next Dose Due acetaminophen 500 mg tablet Commonly known as: for_TYLENOL Take 1-2 tablets by mouth every 6 (six) hours as needed. HYDROcodone-acetaminophen 5-325 mg per tablet Commonly known as: for_NORCO Take 1 tablet by mouth every 6 (six) hours as needed for pain. STOP taking these medications ibuprofen 200 mg tablet Commonly known as: for_ADVIL,MOTRIN methylPREDNISolone 4 mg tablet Commonly known as: for_MEDROL DOSEPACK ondansetron ODT 4 mg disintegrating tablet Commonly known as: for_ZOFRAN-ODT DETAILS OF HOSPITAL STAY REASON FOR ADMISSION Dizziness/black tarry stools HOSPITAL COURSE 31-year-old female who recently on 11/08/2017 underwent an ERCP for treatment of choledocholithiasisreturns to hospital today with overnight history of black tarry stools, dizziness, and nausea. Hemoglobin on admission found to be 9.2 (previous baseline study of 13.5). Patient was tachycardic with heart rates in the 140s. Her blood pressure was stable with systolics in 100s to 110's. Patient received 1 unit red blood cells. She was brought to endoscopy suite where he bleeding ulcer presumably created as a result of cautery from ERCP earlier in weak. Per Gastroenterology ulceration located very close to pancreatic duct making intervention difficult. He was able to inject with epinephrine slowing th e bleeding. Patient was turned to intensive care unit. An additional unit of blood was given. Hemoglobin was monitored overnight. Patient's heart rate did come down. Blood pressure remained stable. On a.m. labs hemoglobin had drifted to 7.6. We have started 1/3 unit of blood. Coordinated care with [facility] in [place]. Patient will be transferred via ambulance to GI service under care of Dr. Cassidy Quiroz. CONSULTS ORDERED DURING THIS ADMISSION IP CONSULT TO GASTROENTEROLOGY DATA AND RESULTS Recent Results (from the past 24 hour(s)) CBC with Differential Collection Time: 11/11/17 12:18 PM Result Value Hemoglobin 9.2 (L) Hematocrit 29.6 (L) Erythrocytes 3.39 (L) MCV 87.3 RBC Distrib Width 15.4 Platelet Count 374 (H) Leukocytes 15.1 (H) Neutrophils 10.79 (H) Lymphocytes 3.57 (H) Monocytes 0.65 Eosinophils 0.03 Basophils 0.05 CMP (Comprehensive Metabolic Panel) Collection Time: 11/11/17 12:18 PM Result Value Potassium, S 5.4 (H) Sodium, S 138 Chloride, S 103 Bicarbonate, S 23 Anion Gap 12 Bld Urea Nitrog(BUN), S 35 (H) Creatinine, S 0.69 eGFR-Non >90 eGFR- >90 Calcium, Total, S 8.9 Glucose, S 153 (H) Protein, Total, S 6.0 (L) Albumin, S 3.4 (L) Aspartate Aminotransferase (AST), S 23 Alkaline Phosphatase, S 124 (H) Alanine Aminotransferase (ALT), S 370 (H) Bilirubin, Total, S 0.3 Lipase Collection Time: 11/11/17 12:18 PM Result Value Lipase, S 42 Type and screen Collection Time: 11/11/17 12:30 PM Result Value ABO Group A RH Type NEG Antibody Screen NEG Type & Screen Expiraton 11/14/2017 23:59 ELXM Eligible Y Lactate Collection Time: 11/11/17 12:39 PM Result Value Lactate, P 2.1 PT (Prothrombin Time) with INR Collection Time: 11/11/17 12:39 PM Result Value Prothrombin Time, P 9.4 INR 0.9 Hemoglobin Collection Time: 11/11/17 6:15 PM Result Value Hemoglobin 8.7 (L) Hemoglobin Collection Time: 11/12/17 12:21 AM Result Value Hemoglobin 8.9 (L) Hemoglobin Collection Time: 11/12/17 5:40 AM Result Value Hemoglobin 7.6 (L) IMAGING RESULTS Us Abdomen Complete Result Date: 11/08/2017 Impression: IMPRESSION: 1. Cholelithiasis, without evidence of acute cholecystitis. 2. Bile duct dilatation is noted, the common bile duct measuring up to 8.7 mm in the common hepatic duct measuring 9.6 mm, without confirmed evidence of intraluminal filling defects. By report, patient is currently sche duled for ERCP later today. 3. Suspect fatty infiltration of the liver. Ct Abdomen Pelvis With Iv Contrast Result Date: 11/08/2017 Impression: IMPRESSION: 1. Dilated biliary system. No radiopaque calculus identified. Recommend further evaluation with ultrasound or MRCP. 2. Right colonic wall thickening\edema. Findings can be seen with colitis in the appropriate clinical context. Fl Fluoro Less Than 1 Hour Result Date: 11/08/2017 Impression: IMPRESSION: Fluoroscopic guidance used intra-operatively. Fluoroscopic imaging obtained during endoscopic retrograde cholangiopancreatography. Total fluoroscopy time 1.4 minutes. CONDITION AT DISCHARGE: Guarded. DIET: NPO ACTIVITY: As tolerated. Encourage daily exercise. NEW MEDICAL DEVICES / EQUIPMENT: None CODE STATUS: Full Code POA ACTIVATION: Makes own decisions. FOLLOW UP APPOINTMENTS: Transfer to [facility] TEST RESULTS PENDING AT DISCHARGE: None. ADMINISTRATIVE Face to Face Visit: Today I spent over 30 minutes in face to face management of the patient, evaluation and coordination of care. documented in this encounter Medications at Time of Discharge Medication Sig Dispensed Refills Start Date End Date acetaminophen Take 1-2 tablets by 0 06/24/2017 (for_TYLENOL) 500 mg mouth every 6 (six) tablet hours as needed. HYDROcodone-acetaminophen Take 1 tablet by 0 11/15/2017 (for_NORCO) 5-325 mg per mouth every 6 (six) tablet hours as needed for pain. documented as of this encounter Progress Notes Dimitri Chase APRN, BRENDA - 11/12/2017 8:07 AM CDT Anesthesia Post-Op Visit Patient: Carol Cooley Anesthesia Post-Op Visit Postoperative day: 1 Cardiovascular status: hemodynamic (HR & BP) acceptable Respiratory status: patent airway with spontaneous effort Oxygen requirements: room air Level of consciousness: awake Pain score: pain adequately controlled and /or at baseline Post Op nausea/vomiting: none Current pain scale: 2/10 AST Rubio Baker M.D. - 11/12/2017 7:49 AM CDT SUBJECTIVE Patient feels somewhat better after fluids and 2 units of PRBC's. She had two melena bowel movementsovernight. No abdominal pain. She is concerned about further bleeding and would like to transfer to [place]. Still gets winded with any movement. OBJECTIVE Current Vital Signs Vitals: 11/12/17 0703 BP: Pulse: 105 Resp: 17 Temp: SpO2: 97% PHYSICAL EXAM Gen: Pleasant as always. Sitting up in bed. Chest: CTA bilaterally Cv: Tachy, regular rate Abd: Soft, No tenderness. Extrem: No edema LABS Recent Results (from the past 24 hour(s)) CBC with Differential Collection Time: 11/11/17 12:18 PM Result Value Hemoglobin 9.2 (L) Hematocrit 29.6 (L) Erythrocytes 3.39 (L) MCV 87.3 RBC Distrib Width 15.4 Platelet Count 374 (H) Leukocytes 15.1 (H) Neutrophils 10.79 (H) Lymphocytes 3.57 (H) Monocytes 0.65 Eosinophils 0.03 Basophils 0.05 CMP (Comprehensive Metabolic Panel) Collection Time: 11/11/17 12:18 PM Result Value Potassium, S 5.4 (H) Sodium, S 138 Chloride, S 103 Bicarbonate, S 23 Anion Gap 12 Bld Urea Nitrog(BUN), S 35 (H) Creatinine, S 0.69 eGFR-Non >90 eGFR- >90 Calcium, Total, S 8.9 Glucose, S 153 (H) Protein, Total, S 6.0 (L) Albumin, S 3.4 (L) Aspartate Aminotransferase (AST), S 23 Alkaline Phosphatase, S 124 (H) Alanine Aminotransferase (ALT), S 370 (H) Bilirubin, Total, S 0.3 Lipase Collection Time: 11/11/17 12:18 PM Result Value Lipase, S 42 Type and screen Collection Time: 11/11/17 12:30 PM Result Value ABO Group A RH Type NEG Antibody Screen NEG Type & Screen Expiraton 11/14/2017 23:59 ELXM Eligible Y Lactate Collection Time: 11/11/17 12:39 PM Result Value Lactate, P 2.1 PT (Prothrombin Time) with INR Collection Time: 11/11/17 12:39 PM Result Value Prothrombin Time, P 9.4 INR 0.9 Hemoglobin Collection Time: 11/11/17 6:15 PM Result Value Hemoglobin 8.7 (L) Hemoglobin Collection Time: 11/12/17 12:21 AM Result Value Hemoglobin 8.9 (L) Hemoglobin Collection Time: 11/12/17 5:40 AM Result Value Hemoglobin 7.6 (L) DIAGNOSTICS EGD last evening with visible vessel very close to the pancreatic duct orifice with active oozing. Injected with epi which slowed things down. ASSESSMENT / PLAN Post-sphincterotomy bleed. Continued bleeding, although potentially slowing down a bit. She is goingto receive her 3rd unit of blood. She needs further therapy, but the location of the visible vessel is very close to the pancreatic duct orifice. She needs an expert ERCPist to treat this. Will transfer to [place] this morning. NPO. Discussed case with Dr. Cassidy Quiroz, the accepting physician. Discussed with hospitalist team and patient. Total time 25 minutes, 15 minutes spent in counseling and coordination of care. documented in this encounter H&P Notes Carson Lopez APRN, C.N.P. - 11/11/2017 2:21 PM CDT CHIEF COMPLAINT Black stools HISTORY OF PRESENT ILLNESS Her 31-year-old female admitted to hospital through emergency department for she reports several black tarry stools. Patient underwent an ERCP on Wednesday (11/08) of this week. She was discharged after procedure. Noted procedure patient reports feeling fine. Also felt fine on Wednesday and Wednesday morning. On Wednesday afternoon patient began having what she called black diarrhea. She estimates that shehad approximately 20 loose stools overnight the. With each stool patient reports feeling dizzy, nauseous at times, and sweaty. She denies syncope or loss of consciousness. No abdominal pain. No vomiting. Patient was seen in clinic this morning for postprocedure visit. While in clinic she states nearlypassed out while having a bowel movement. Nursing noted patient to be tachycardic with heart rates in 140s. Patient was directed to the emergency department. Workup in emergency department remarkable for hemoglobin of 9.2 (note patient's baseline hemoglobin 13.5) heart rate in 140s, systolic blood pressure around 100. Dr. Baker from Gastroenterology was notified. He is said to be scheduling endoscopy later today. MEDICATIONS (Not in a hospital admission) ALLERGIES Allergies Allergen Reactions ??? Penicillins Other (see comments) Does not recall reaction- reports reaction during childhood. PAST MEDICAL HISTORY Past Medical History: Diagnosis Date ??? Sleep Apnea PAST SURGICAL HISTORY Past Surgical History: Procedure Laterality Date ??? ENDOSCOPIC RETROGRADE CHOLANGIOPANCREATOGRAPHY (ERCP) N/A 11/08/2017 Procedure: ENDOSCOPIC RETROGRADE CHOLANGIOPANCREATOGRAPHY; Surgeon: Rubio Baker M.D.; Location: [facility] OR ??? LAPAROSCOPIC APPENDECTOMY N/A 09/08/2017 Procedure: LAPAROSCOPIC APPENDECTOMY; Surgeon: Edd Moeller D.O.; Location: [facility] OR ??? OTHER CONVERTED SHX (SEE COMMENT) N/A 06/24/2017 >1. Normal spontaneous vaginal delivery. 2. Second-degree midline laceration and repair. SOCIAL HISTORY Social History Social History ??? Marital status: Spouse name: N/A ??? Number of children: N/A ??? Years of education: N/A Occupational History ??? Not on file. Social History Main Topics ??? Smoking status: Former Smoker ??? Smokeless tobacco: Never Used ??? Alcohol use No ??? Drug use: No ??? Sexual activity: Yes Partners: Male Other Topics Concern ??? Not on file Social History Narrative ??? No narrative on file FAMILY HISTORY Family History Problem Relation Age of Onset ??? Cancer Grandmother ear ??? Cystic fibrosis Sister ??? Cancer Grandfather larynx ??? Lung cancer Grandmother brain cancer ??? Heart attack Father 47 ??? Hypothyroidism Mother REVIEW OF SYSTEMS GENERAL: No weight gain, no weight loss, no fever in past month, no chills, no sweats. EENT: No vision changes, no eye pain, no sinus problems, no difficulty swallowing, no hearing difficulty PULMONARY: No shortness of breath, no cough, no wheezing, no sputum, no hemoptysis CARDIAC: no chest pain, no chest pressure, no rapid beating, no irregular beating, GI: As per HPI : No burning/pain with urination, no difficulty starting stream, no difficulty emptying bladder, no urgency, no hematuria. MUSCULOSKELETAL: No joint pain or swelling. SKIN: No skin rashes NEURO: Dizziness as per HPI ENDOCRINE: No excessive thirst, no excessive bruising. VITAL SIGNS Vitals: 11/11/17 1520 BP: 110/70 Pulse: (!) 128 Resp: Temp: SpO2: 99% PHYSICAL EXAM GENERAL: Patient is in no distress. Alert and oriented. HEENT: Normocephalic. Trachea midline. Oropharynx pink, moist. Sclera white. PERRL HEART: Regular rate and rhythm. S1S2. No murmurs, gallops or rubs noted. LUNGS: Respirations easy and unlabored. Clear to auscultation bilaterally. No expiratory wheeze. No accessory muscles of respiration noted. ABDOMEN: Soft, obese no abdominal tenderness with palpation. No peritonitis. No mass. Active bowel sounds in all 4 quadrants. NEURO: Cranial nerves II-XII intact. Face symmetrical, speech clear. 5/5 dorsi/plantar flexion. Strong grasp bilaterally. Light touch sensation intact and symmetrical in all extremities. EXTREMITIES: No neurovascular compromise. No cyanosis, clubbing or edema. 2+ radial and pedal pulses SKIN: Warm, dry. No rash, bruising, or ulceration. LAB RESULTS Lab Results Component Value Date WBC 15.1 (H) 11/11/2017 HGB 9.2 (L) 11/11/2017 HCT 29.6 (L) 11/11/2017 MCV 87.3 11/11/2017 PLT 374 (H) 11/11/2017 Lab Results Component Value Date NA 138 11/11/2017 K 5.4 (H) 11/11/2017 CL 103 11/11/2017 HCO3 23 11/11/2017 CREATININE 0.69 11/11/2017 EGFR >90 11/11/2017 BUN 35 (H) 11/11/2017 ANIONGAP 12 11/11/2017 GLUCOSE 153 (H) 11/11/2017 CALCIUM 8.9 11/11/2017 Lab Results Component Value Date ALT 370 (H) 11/11/2017 AST 23 11/11/2017 ALKPHOS 124 (H) 11/11/2017 BILITOT 0.3 11/11/2017 DIAGNOSTICS Upper GI endoscopy pending IMPRESSION/REPORT/PLAN Patient Active Problem List Diagnosis ??? Body Mass Index 50.0 To 59.9 Adult (HCC) ??? Abuse Tobacco Smoking ??? Migraine Headache ??? Depression Major ??? Attention Deficit With Hyperactivity Disorder ??? Apnea Sleep Obstructive ??? Gastroesophageal Reflux Disease NOS ??? 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 Pain Right Upper Quadrant ??? Melena 31-year-old female who recently on 11/08/2017 underwent an ERCP for treatment of choledocholithiasisreturns to hospital today with overnight history of black tarry stools, dizziness, and nausea. Acute active GI bleeding. Hemoglobin 13.5 four days ago. Today 9.2. Patient's heart rate and 140s. Blood pressureremains compensated with systolic pressures in 100s to 110s. IV Protonix given. Plan to continue twice daily. 1 unit RBCs ordered in emergency department with 2nd on hand if needed. Normal saline to run at 125 cc/hour. Gastroenterology has been consulted isn't aware patient. They are planning upper endoscopy later this afternoon. In meantime will place patient in intensive care unit on telemetry monitoring. Acute blood loss anemia secondary to above. Treat as outlined above. Chronic conditions including morbid obesity, ADHD, depression, GERD are stable at this time. HOSPITAL CARE ISSUES Code status: Full code IV fluids: Normal saline 100 Activity: As tolerated Diet: NPO for now VTE PPX: Hold in setting of GI bleed Nausea: Zofran Pain: Tylenol GI PPX: IV Protonix b.i.d. documented in this encounter Procedure Notes Nuno Love M.D. - 11/11/2017 3:52 PM CDTAssociated Order(s): CRITICAL CARE Procedure Critical Care Performed by: Nuno Love Authorized by: Nuno Love Critical care provider statement: Critical care total time (minutes): 45 Critical care time was exclusive of: Separately billable procedures and treating other patients Critical care was necessary to treat or prevent imminent or life-threatening deterioration of the following conditions: Circulatory failure and shock Critical care was time spent personally by me on the following activities: Development of treatmentplan with patient or surrogate, discussions with consultants, examination of patient, obtaining history from patient or surrogate, ordering and performing treatments and interventions, ordering and review of laboratory studies, pulse oximetry, re-evaluation of patient's condition and review of old charts I assumed direction of critical care for this patient from another provider in my specialty: no Nuno Love M.D. 11/11/17 1553 Rubio Baker M.D. - 11/11/2017 3:51 PM CDTAssociated Order(s): UPPER GI ENDOSCOPY [facility] [place] [facility] Patient Name: Carol Cooley Procedure Date: 11/11/2017 3:51 PM Date of : 1985 Age: 31 Gender: Female Procedure: Upper GI endoscopy Providers: Rubio Harris (Ordering Provider) Referring Provider: Rubio Baker Pre-op Diagnoses: Acute post hemorrhagic anemia, Melena Post-op Diagnoses: - Normal esophagus. - A medium amount of food (residue) in the stomach. - One oozing duodenal ulcer with a visible vessel. Injected with epineprhine which did stop the bleeding, at least temporarily. The vessel is still at high risk for rebleeding, but was an extremely dangerous area to clip or burn as it is very close to the pancreatic duct orifice. Discussed with Erik, although they were not able to see the pictures. - No specimens collected. Recommendation: - After discussing with Erik, as she has achieved some hemostasis, will observe. - Continue Protonix 40 mg IV BID. - Minimal clear liquids are OK. - If she continues to significantly bleed, and certainly if she becomes unstable, then will plan on transferring to [place] for further therapy. Findings: The esophagus was normal. A medium amount of food (residue) was found in the gastric fundus and in the gastric body. One oozing superficial duodenal ulcer with a visible vessel was found in the ampulla presumably very close to the pancreatic duct orifice. Area was successfully injected with 3 mL of a 1:10,000 solution of epinephrine for hemostasis. Medicines: Fentanyl 100 micrograms IV, Midazolam 8 mg IV, Lidocaine gargle (20 ml) 20 mL PO, Monitored Anesthesia Care Complications: No immediate complications. Estimated blood loss: Minimal. Procedure Details: The patient was seen, evaluated, and history reviewed. Airway and heart and lung exams were performed and were satisfactory for planned sedation care. The risks, benefits and alternatives for the procedure and sedation were discussed and informed consent was obtained. A procedural pause was conducted in the presence of assisting personnel to verify the correct patient identity and procedure to be performed. Throughout the procedure, the patient's blood pressure, pulse, and oxygen saturations were monitored continuously. The Endoscope was introduced under direct vision through the mouth, and advanced to the second part of duodenum. The upper GI endoscopy was unusually difficult due to excessive bleeding and ineffective sedation. Successful completion of the procedure was aided by increasing the dose of sedation medication. The patient tolerated the procedure. Sedation: Anesthesia was administered by an anesthesia professional. The following parameters were monitored: oxygen saturation, heart rate, blood pressure, respiratory rate, EKG, adequacy of pulmonary ventilation, and response to care. Rubio Baker, 11/11/2017 5:01:50 PM This report has been signed electronically. Number of Addenda: 0 Note Initiated On: 11/11/2017 3:51 PM documented in this encounter Consult Notes Rubio Baker M.D. - 11/11/2017 1:24 PM CDTAssociated Order(s): IP CONSULT TO GASTROENTEROLOGY REFERRING PROVIDER Dr. Seng Reyna; Laurent Lopez CNP CHIEF COMPLAINT / REASON FOR VISIT Chief Complaint Patient presents with ??? Dizziness ??? Black or Bloody Stool ??? Nausea ??? Rapid Heart Rate HISTORY OF PRESENT ILLNESS Carol Magalys Cooley is a pleasant 31 y.o. female who had obstructive jaundice from tiny common bile duct stones treated by ERCP with biliary sphincterotomy and balloon sweep on November 08. She did well with her abdominal pain, nausea and dark urine disappearing. Unfortunately, in the early afternoon yesterday, she began having black stools. She thinks she has had 15-20 stools including throughout the night. She began to get dizzy with standing, and then eventually even with sitting. As she had an appointment with Dr. Reyna today, she tried to hold out until then. His she was transferred to the emergency room after visiting with Dr. Reyna. She is feeling slightly better after IV fluid resuscitation. She is somewhat nauseated. She denies any abdominal pain. No vomiting. She had not been taking any pain medications at all since the ERCP. PAST MEDICAL HISTORY Patient Active Problem List Diagnosis ??? Body Mass Index 50.0 To 59.9 Adult (HCC) ??? Abuse Tobacco Smoking ??? Migraine Headache ??? Depression Major ??? Attention Deficit With Hyperactivity Disorder ??? Apnea Sleep Obstructive ??? Gastroesophageal Reflux Disease NOS ??? 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 Pain Right Upper Quadrant Past Medical History: Diagnosis Date ??? Sleep Apnea Past Surgical History: Procedure Laterality Date ??? ENDOSCOPIC RETROGRADE CHOLANGIOPANCREATOGRAPHY (ERCP) N/A 11/08/2017 Procedure: ENDOSCOPIC RETROGRADE CHOLANGIOPANCREATOGRAPHY; Surgeon: Rubio Baker M.D.; Location: [facility] OR ??? LAPAROSCOPIC APPENDECTOMY N/A 09/08/2017 Procedure: LAPAROSCOPIC APPENDECTOMY; Surgeon: Edd Moeller D.O.; Location: [facility] OR ??? OTHER CONVERTED SHX (SEE COMMENT) N/A 06/24/2017 >1. Normal spontaneous vaginal delivery. 2. Second-degree midline laceration and repair. MEDICATIONS Current Facility-Administered Medications on File Prior to Encounter Medication ??? medroxyPROGESTERone injection 150 mg Current Outpatient Prescriptions on File Prior to Encounter Medication Sig ??? acetaminophen (for_TYLENOL) 500 mg tablet Take 1-2 tablets by mouth every 6 (six) hours as needed. ??? HYDROcodone-acetaminophen (for_NORCO) 5-325 mg per tablet Take 1 tablet by mouth every 6 (six) hours as needed for pain. ??? ibuprofen (for_ADVIL,MOTRIN) 200 mg tablet Take 200 mg by mouth as needed. ??? [] methylPREDNISolone (for_MEDROL DOSEPACK) 4 mg tablet follow package directions. ??? [] ondansetron ODT (for_ZOFRAN-ODT) 4 mg disintegrating tablet Take 1 tablet (4 mg total)by mouth 3 (three) times a day as needed for nausea or vomiting for up to 3 days. Given from [facility] Allergies Allergen Reactions ??? Penicillins Other (see comments) Does not recall reaction- reports reaction during childhood. SOCIAL HISTORY Social History Substance Use Topics ??? Smoking status: Former Smoker ??? Smokeless tobacco: Never Used ??? Alcohol use No Two sons, youngest is 4-month-old. FAMILY HISTORY Family History Problem Relation Age of Onset ??? Cancer Grandmother ear ??? Cystic fibrosis Sister ??? Cancer Grandfather larynx ??? Lung cancer Grandmother brain cancer ??? Heart attack Father 47 ??? Hypothyroidism Mother REVIEW OF SYSTEMS Gen: No fevers or chills. No weight loss. Eyes: Decreased yellowing of eyes, no eye sores ENT: No mouth sores Pulm: No cough or shortness of breath CV: No chest pain; + dyspnea on exertion GI: See HPI. Otherwise negative : Resolve dark urine; no hematuria Skin: No jaundice, no rashes, no pruritus. Complete 14-point systems review otherwise negative. OBJECTIVE BP 125/78 Pulse (!) 132 Temp 36 ??C (Temporal) Resp 18 Wt (!) 142.3 kg SpO2 100% ? No BMI 55.57 kg/m?? PHYSICAL EXAM Gen: Very pleasant, but understandably anxious female lying in bed. She is obese. Eyes: No icterus. Pupils equal and round ENT: Oropharynx clear. Normal dentition. Mallampati class II. Neck: Supple without masses, lymphadenopathy or thyromegaly. Respiratory: Clear to auscultation bilaterally. Normal equal chest rise with inspiration bilaterally CV: Tachycardic with regular rhythm without murmur; No abdominal bruits; 2+ pedal pulses Abd: Normal bowel sounds. Soft. No abdominal tenderness. No distension. No hepatosplenomegaly. No hernias. Extrem: No edema Skin: No jaundice, spiders or rashes. Warm and dry. Psych: Alert and oriented x 3 Neuro: No asterixis. MS: Normal gait; No joint swelling in arms or leg joints with full range of motion. LABS Recent Results (from the past 24 hour(s)) CBC with Differential Collection Time: 11/11/17 12:18 PM Result Value Hemoglobin 9.2 (L) Hematocrit 29.6 (L) Erythrocytes 3.39 (L) MCV 87.3 RBC Distrib Width 15.4 Platelet Count 374 (H) Leukocytes 15.1 (H) Neutrophils 10.79 (H) Lymphocytes 3.57 (H) Monocytes 0.65 Eosinophils 0.03 Basophils 0.05 CMP (Comprehensive Metabolic Panel) Collection Time: 11/11/17 12:18 PM Result Value Potassium, S 5.4 (H) Sodium, S 138 Chloride, S 103 Bicarbonate, S 23 Anion Gap 12 Bld Urea Nitrog(BUN), S 35 (H) Creatinine, S 0.69 eGFR-Non >90 eGFR- >90 Calcium, Total, S 8.9 Glucose, S 153 (H) Protein, Total, S 6.0 (L) Albumin, S 3.4 (L) Aspartate Aminotransferase (AST), S 23 Alkaline Phosphatase, S 124 (H) Alanine Aminotransferase (ALT), S 370 (H) Bilirubin, Total, S 0.3 Lipase Collection Time: 11/11/17 12:18 PM Result Value Lipase, S 42 Type and screen Collection Time: 11/11/17 12:30 PM Result Value ABO Group A RH Type NEG Antibody Screen NEG Type & Screen Expiraton 11/14/2017 23:59 ELXM Eligible Y Lactate Collection Time: 11/11/17 12:39 PM Result Value Lactate, P 2.1 PT (Prothrombin Time) with INR Collection Time: 11/11/17 12:39 PM Result Value Prothrombin Time, P 9.4 INR 0.9 DIAGNOSTICS Reviewed ERCP results. IMPRESSION/REPORT / PLAN 1. Post sphincterotomy bleed 2. Anemia from acute hemorrhage 3. Resolved choledocholithiasis 4. Cholelithiasis The patient has unfortunately had a post sphincterotomy bleed. I would start IV Protonix 40 mg IV b.i.d. as this is usually an ulcer from the cautery used for the sphincterotomy. Patient will be brought up stairs to the ICU. We will plan on emergent EGD with the side-viewing scope to look for anticipated ulcer at the ampulla site. If amenable to therapy we will treat. Agree with following hemoglobin closely. Explained procedure to the patient and her father, answered their questions. ASA 2 E. We aregoing to try this with moderate sedation, but may need monitored anesthesia if sedation is not adequate. As for her cholelithiasis, obviously her cholecystectomy at this point we will wait. However we willplan on still having cholecystectomy in the upcoming weeks. It does appear that her jaundice has resolved, indicating that the choledocholithiasis has resolved. documented in this encounter Nursing Notes Gabrielle Nguyen R.N. - 11/12/2017 9:26 AM CDT Transfer to [facility] report given to Don Gabrielle Nguyen R.N. - 11/12/2017 9:22 AM CDT Goals: Clinical Goals for the Shift: reduce heart rate; improve hemoglobin level Identify possible barriers to meeting goals/advancing plan of care: none Stability of the patient: Moderately Stable - Low risk of patient condition declining or worsening End of Shift Summary: pt to transfer to [place] Marcus Mata R.N. - 11/12/2017 5:12 AM CDT Goals: Clinical Goals for the Shift: reduce heart rate; improve hemoglobin level Identify possible barriers to meeting goals/advancing plan of care: melena; hypovolemic shock Stability of the patient: Moderately Unstable - Medium risk of patient condition declining or worsening End of Shift Summary: HR has improved over the duration of this head shipper; initially HR was 130-140, now HR is 90-110. HGB has not improved despite one unit of blood being given at 1999 (went from 8.7 to 8.9). documented in this encounter ED Notes Eliane Centeno R.N. - 11/11/2017 12:48 PM CDT Pt states she has been getting very dizzy ignacio when using the bathroom, father noticed was pale earlier today, ERCP Wednesday. HR in 160s when changing position. Eliane Centeno R.N. 11/11/17 1249 Eliane Centeno R.N. 11/11/17 1250 Nuno Love M.D. - 11/11/2017 12:33 PM CDT SUBJECTIVE CHIEF COMPLAINT/REASON FOR VISIT Dizziness; Black or Bloody Stool; Nausea; and Rapid Heart Rate HISTORY OF PRESENT ILLNESS 31 year old female with a history of morbid obesity, ADD, dysthymic disorder, and migraine headache presents to the Emergency Department for evaluation of black stools. The patient was evaluated in theED on 11/04 after she suddenly onset with pleuritic chest pain. She initially thought it was heartburn which she drank some milk and took Zantac and Omeprazole, but she had no relief from this. Her pain was not described as a burning sensation rather a nonradiating, substernal sharp pain with any deepinspiration. Her EKG on arrival shows normal sinus rhythm at 76 beats per minute with sinus arrhythmia but no ischemic changes. Her symptoms appeared to be consisted with pleurisy, but with her family history of CAD and CO as well as her recent surgery and vaginal delivery, Troponin and D-dimer were obtained to help rule out acute coronary syndrome or a PE. CXR was also obtained to rule out pneumoniaor pneumothorax. LFT's were also obtained to rule out pancreatitis or cholecystitis. She was additionally given a GI cocktail. Chest CT was unremarkable for PE. She was diagnosed with pleurisy and prescribed a Medrol Dosepak. On 11/07, she represented to the ED complaining of persistent substernal chest pain, nausea, and SOB. Her SOB was likely related to the abdominal issue. Abdominal CT showed that her common bile duct dilated to 11 mm with dilation of the intrahepatic biliary ducts and her gallbladder is mildly distended. No specific gallstones or evidence of acute cholecystitis were noted. CT at this time was comparedto CT abdomen pelvis with IV contrast on September 08, 2017, the common bile duct was 9.5 at that time. The patient's case was discussed with Dr. Baker, Gastroenterology which the ED provider and Dr. Baker agreed that she likely does have a common bile duct gallstone and will likely need Endoscopic Retrograde Cholangiopancreatography (ERCP). They were able to reschedule the patient's US for the morning of 11/08 and ERCP in the afternoon of that same day. On 11/08, the patient was evaluated by Dr. Baker . Her US was completed at 0900 that morning which showed cholelithiasis with CBD at 9.6 mm. Given her clinical symptoms, US and CT scan findings, and without obvious causes for other hepatiti, it appeared the cause was biliary obstruction. He discussedwith her about ERCP and explained the details, including risks and benefits. The patient reports having approximately 20 episodes of black, tarry, diarrhea since last night. Shehas not noticed any maroon stools. This morning, the patient had a consult with Dr. Reyna of General Surgery where she was noted to be tachycardic with a heart rate in the 130s which prompted theirtransfer to the ED. The patient additionally complains of nausea, generalized myalgias, and dizziness. She denies any history of blood transfusions. The patient's past medical history and EMR has been reviewed and included in the HPI. Her 4 month old son was diagnosed with fatty liver disease a few weeks ago. Her maternal grandmother had gallbladder issues, and her father had a cholecystectomy. In addition to the ERCP, she had a laparoscopic appendectomy in 08/2017. She is a former smoker and quit prior to her most recent . She denies any smokeless tobacco, alcohol, or illicit drug use. History provided by: Patient and medical records REVIEW OF SYSTEMS Unable to perform ROS: Acuity of condition Cardiovascular: Tachycardia. Gastrointestinal: Positive for diarrhea (black and tarry) and nausea. Musculoskeletal: Positive for myalgias (generalized). Neurological: Positive for dizziness. OBJECTIVE Initial Vitals Temperature Pulse Rate Heart Rate Resp Rate Blood Pressure SpO2 11/11/17 1229 11/11/17 1230 11/11/17 1229 11/11/17 1229 11/11/17 1229 11/11/17 1229 36 ??C (!) 134 (!) 135 18 129/79 99 % Pain Score 11/11/17 1226 7 PHYSICAL EXAMINATION Constitutional: She appears well-nourished. HENT: Head: Normocephalic and atraumatic. Mouth/Throat: Oropharynx is clear and moist. Mucous membranes are moist. Eyes: Conjunctivae are normal. Pupils are equal, round, and reactive to light. Neck: Neck supple. Cardiovascular: Normal rate, regular rhythm and normal heart sounds. Pulses are palpable. Capillary refill: takes less than 3 seconds, Pulmonary/Chest: Effort normal. There is normal air entry. Abdominal: Soft. She exhibits no mass. There is no tenderness. Musculoskeletal: She exhibits no tenderness or deformity. Neurological: She is alert and oriented to person, place, and time. Skin: Skin is warm, dry and intact. Psychiatric: She has a normal mood and affect. Her behavior is normal. Thought content normal. Nursing note and vitals reviewed. ASSESSMENT/PLAN Impression and Plan I am concerned for a significant GI bleed. We will start with multiple IVs and a type and screen. I have informed the patient of the risks of a blood transfusion. I plan to be in close communication with general surgery and GI Update Hemoglobin has dropped from 13 to 9-1/2 and with the tachycardia clearly she is hypovolemic and heading for shock. Discussed indications risk benefits of transfusion with both patient and father who isarrived. Little response to initial fluid bolus. Workup was surgery in GI. Admitted to intensive care unit as blood is being started. Maintaining pressure less far. Reviewed and summarized previous medical records including: Lab results and Documentation from previous visits. I personally reviewed the lab result(s) and my interpretation is: Abnormal ED Course Final Diagnoses: as of Nov 12 1551 Hypovolemic Shock (HCC) Hemorrhage Gastrointestinal I personally performed the services described in this documentation, as scribed in my presence, and it is both accurate and complete. Nuno Love M.D. 11/11/171551 Leonora Meadows R.N. - 11/11/2017 12:26 PM CDT Black, tarry stools, dizziness and nausea began yesterday afternoon. Pt reports generalized body aches and denies taking pain meds prior to arrival. Pt tachy in clinic. Leonora Meadows R.N. 11/11/17 1227 Leonora Meadows R.N. 11/11/17 1232 documented in this encounter Plan of Treatment Pending Results Name Type Priority Associated Diagnoses Date/Ti me Prepare Red Blood Blood Bank STAT 11/11/2017 12:29 PM CDT Cells, 2 Units Prepare Red Blood Blood Bank STAT 11/11/2017 12:29 PM CDT Cells, 1 Units Prepare Red Blood Blood Bank Routine 11/11/2017 12:29 PM CDT Cells, 1 Units Scheduled Procedures Name Priority Associated Diagnoses Date/Time COLONOSCOPY Diarrhea documented as of this encounter Procedures Procedure Name Priority Date/Time Associated Comments Diagnosis TRANSFUSE RED BLOOD CELLS Routine 11/12/2017 6:49 AM CDT HEMOGLOBIN, B Timed 11/12/2017 5:40 Results for this AM CDT procedure are i n the results section. HEMOGLOBIN, B Timed 11/12/2017 12:21 Results fo r this AM CDT procedure are i n the results section. TRANSFUSE RED BLOOD CELLS Routine 11/11/2017 8:[address] PERIPHERAL IV Routine 11/11/2017 8:05 PM CDT HEMOGLOBIN, B Routine 11/11/2017 6:15 Results for this PM CDT procedure are i n the results section. ESOPHAGOGASTRODUODENOSCOPY 11/11/2017 4:08 Melena PM CDT CRITICAL CARE Routine 11/11/2017 3:52 Results for this PM CDT procedure are i n the results section. UPPER GI ENDOSCOPY 11/11/2017 3:51 Result s for this PM CDT procedure are i n the results section. ADULT OXYGEN THERAPY Routine 11/11/2017 2:51 PM CDT ADULT OXYGEN THERAPY Routine 11/11/2017 2:51 PM CDT ADULT OXYGEN THERAPY Routine 11/11/2017 2:51 PM CDT TRANSFUSE RED BLOOD CELLS STAT 11/11/2017 1:48 PM CDT PROTHROMBIN TIME (PT), P STAT 11/11/2017 12:39 Results for this PM CDT procedure are i n the results section. LACTATE, B/P STAT 11/11/2017 12:39 Results for this PM CDT procedure are i n the results section. PREPARE RED BLOOD CELLS Routine 11/11/2017 12:29 PM CDT PREPARE RED BLOOD CELLS STAT 11/11/2017 12:29 PM CDT PREPARE RED BLOOD CELLS STAT 11/11/2017 12:29 PM CDT documented in this encounter Results Transfuse Red Blood Cells (11/12/2017 9:07 AM CDT) Marta Boudreaux APRN.P., M.S.N. BLOOD TRANSFUSION O RDERABLES (ABNORMAL) Hemoglobin (11/12/2017 5:40 AM CDT) P athologist Signature Hemoglobin 7.6 (L) 11.6 - 15.0 11/12/2017 [facility] g/dL 5:47 AM CDT [facility] Specimen Anatomical Collection Method Collection Time Receive d Time (Source) Location / / Volume Laterality Blood (Blood, 11/12/2017 5:40 AM 11/13/19 18 5:45 Venous) CDT AM CDT Kendal Santacruz APRNN.Jason. LAB BLOOD ADD-ON Performing Organization Address City/[facility]/ZIP Code Phon e Number [address] [place] [address] [facility] (ABNORMAL) Hemoglobin (11/12/2017 12:21 AM CDT) P athologist Signature Hemoglobin 8.9 (L) 11.6 - 15.0 11/12/2017 [facility] g/dL 12:24 AM CDT [facility] Specimen Anatomical Collection Method Collection Time Receive d Time (Source) Location / / Volume Laterality Blood (Blood, 11/12/2017 12:21 11/12/2017 Venous) AM CDT 12:21 AM CDT Kendal Santacruz APRNN.P. LAB BLOOD ADD-ON Performing Organization Address City/State/ZIP Code Phon e Number [address] [place] [address] [facility] Transfuse Red Blood Cells (11/11/2017 10:52 PM CDT) Kaye Grimes APRN, C.N.P., M.S.N. BLOOD TRANSFUSION O RDERABLES Transfuse Red Blood Cells : , 1 Units (11/11/2017 10:52 PM CDT) Kaye Grimes APRN, C.N.P., M.S.N. BLOOD TRANSFUSION O RDERABLES (ABNORMAL) Hemoglobin (11/11/2017 6:15 PM CDT) athologist Signature Hemoglobin 8.7 (L) 11.6 - 15.0 11/11/2017 [facility] g/dL 6:21 PM CDT [facility] Specimen Anatomical Collection Method Collection Time Receive d Time (Source) Location / / Volume Laterality Blood (Blood, 11/11/2017 6:15 PM 11/12/19 18 6:19 Venous) CDT PM CDT Kendal Santacruz APRNN.P. LAB BLOOD ADD-ON Performing Organization Address City/State/ZIP Code Phon e Number [place] [address] [facility] Transfuse Red Blood Cells (11/11/2017 3:59 PM CDT) Kendal Santacruz APRNN.P. BLOOD TRANSFUSION ORDER JORI Critical Care (11/11/2017 3:52 PM CDT) Narrative Nuno Love M.D. - 11/11/2017 3:5 2 PM CDT Nuno Love M.D. ? 11/11/2017 ??3:53 PM Critical Care Performed by: Nuno Love Authorized by: Nuno Love Critical care provider statement: ??Critical care total time (minutes): ? ?45 ??Critical care time was exclusive of: ??Separately billable procedures and treating other patients ??Critical care was necessary to treat or prevent imminent or life-threatening deterioration of the fo llowing conditions: ??Circulatory failure and shock ??Critical care was time spent personal ly by me on the following activities: ??Development of treatment p sonya with patient or surrogate, discussions with consultants, examinatio n of patient, obtaining history from patient or surrogate, ordering and performing treatments and interventions, ordering and review of la boratory studies, pulse oximetry, re-evaluation of patient's condition and review of old charts ??I assumed direction of critical care for this patient from another provider in my specialty: no ?? Nuno Love M.D. PROCEDURE/MINOR SURGICAL ORD ERABLES UPPER GI ENDOSCOPY (11/11/2017 3:51 PM CDT) Specimen (Source) Anatomical Location Collection Method / Collectio n Time Received Time / Laterality Volume Narrative This result has an attachment that is no t available. Procedure Note Rubio Baker M.D. - 11/11/2017 3:5 1 PM CDT [facility] [place] [facility] Patient Name: Carol Cooley Procedure Date: 11/11/2017 3:51 PM Date of : 1985 Age: 31 Gender: Female Procedure: Upper GI endoscopy Providers: Rubio Harris (Ordering Provider) Referring Provider: Rubio Baker Pre-op Diagnoses: Acute post hemorrhagic anemia, Melena Post-op Diagnoses: - Normal esophagus. - A medium amount of food (residue) in the stomach. - One oozing duodenal ulcer with a visi ble vessel. Injected with epineprhine which did stop the bleeding , at least temporarily. The vessel is still at high risk for reblee ding, but was an extremely dangerous area to clip or burn as it is very close to the pancreatic duct orifice. Discussed with Erik, although they were not able to see the pictures. - No specimens collected. Recommendation: - After discussing with Erik, as s he has achieved some hemostasis, will observe. - Continue Protonix 40 mg IV BID. - Minimal clear liquids are OK. - If she continues to significantly ble ed, and certainly if she becomes unstable, then will plan on transferrin g to [facility] for further therapy. Findings: The esophagus was normal. A medium amount of food (residue) was f ound in the gastric fundus and in the gastric body. One oozing superficial duodenal ulcer w ith a visible vessel was found in the ampulla presumably very close to th e pancreatic duct orifice. Area was successfully injected with 3 mL of a 1:10,000 solution of epinephrine for hemostasis. Medicines: Fentanyl 100 micrograms IV, Midazolam 8 mg IV, Lidocaine gargle (20 ml) 20 mL PO, Monitored Anesthesia Care Complications: No immediate complication s. Estimated blood loss: Minimal. Procedure Details: The patient was seen, evaluated, and history reviewed. Airway and heart and lung exa ms were performed and were satisfactory for renetta nned sedation care. The risks, benefits and alternatives fo r the procedure and sedation were discussed a nd informed consent was obtained. A procedural paus e was conducted in the presence of assisting personnel to verify the correct patient identity and procedure to be performed. Throughout the procedure, the patient's blood pressure, pulse, and ox ygen saturations were monitored continuously . The Endoscope was introduced under dire ct vision through the mouth, and advanced to the second part of duodenum. The upper GI endoscopy was unusually difficult due to excessive bleeding and ineffective sedation. Successful completion of the procedure was aided by increasing the dose of sedatio n medication. The patient tolerated the procedure. Sedation: Anesthesia was administered by an anest hesia professional. The following parameters were monitored: oxygen satur ation, heart rate, blood pressure, respiratory rate, EKG, adequa cy of pulmonary ventilation, and response to care. Rubio Baker, 11/11/2017 5:01:50 PM This report has been signed electronical ly. Number of Addenda: 0 Note Initiated On: 11/11/2017 3:51 PM Rubio Baker M.D. GI PROCEDURE ORDERABLES PT (Prothrombin Time) with INR (11/11/2017 12:39 PM CDT) P athologist Signature Prothrombin 9.4 8.8 - 11.9 11/11/2017 [facility] Time, P sec 12:58 PM CDT [facility] INR 0.9 0.9 - 1.2 11/11/2017 [facility] 12:58 PM CDT [facility] Comment: Standard intensity warfarin therapeutic range: 2.0 to 3.0 High intensity warfarin therapeutic rang e: 2.5 to 3.5 Specimen Anatomical Collection Method Collection Time Receive d Time (Source) Location / / Volume Laterality Blood (Blood, 11/11/2017 12:39 11/11/2017 Venous) PM CDT 12:42 PM CDT Nuno Love M.D. LAB BLOOD ADD-ON Performing Organization Address City/State/ZIP Code Phon e Number [facility] [place] [address] [facility] Lactate (11/11/2017 12:39 PM CDT) P athologist Signature Lactate, P 2.1 0.6 - 2.3 11/11/2017 [facility] mmol/L 12:59 PM CDT [facility] Specimen Anatomical Collection Method Collection Time Receive d Time (Source) Location / / Volume Laterality Blood (Blood, 11/11/2017 12:39 11/11/2017 Venous) PM CDT 12:42 PM CDT Nuno Love M.D. LAB BLOOD NON ADD-ON Performing Organization Address City/State/ZIP Code Phon e Number [facility] [place] [address] [facility] documented in this encounter Visit Diagnoses Diagnosis Melena - Primary Melena Hypovolemic Shock (HCC) Hemorrhage Gastrointestinal Hypovolemic Shock (HCC) documented in this encounter Admitting Diagnoses Diagnosis Melena documented in this encounter Administered Medications Inactive Administered Medications - up to 3 most recent administrations Medication Order MAR Action Action Date Dose Rate Site EPINEPHrine injection Given 11/11/2017 4:53 PM CDT 0.5 mg (for_ADRENALIN) Code/trauma/sedation medication, Starting on Bryanna 11/11/17 at 1653 fentaNYL injection (for_SUBLIMAZE) Given 11/11/2017 4:18 PM CDT 100 mcg intravenous, Code/trauma/sedation medication, Starting on Bryanna 11/11/17 at 1618 lidocaine 2 % mucosal solution (for_XYLO ALINA) Given 11/11/2017 4:14 PM 15 mL Code/trauma/sedation medication, Starting on Bryanna CDT 11/11/17 at 1614 midazolam (PF) injection (for_VERSED) Given 11/11/2017 4:26 PM CDT 2 mg Code/trauma/sedation medication, Starting on Bryanna 11/11/17 at 1618 Given 11/11/2017 4:23 PM CDT 2 mg Given 11/11/2017 4:18 PM CDT 4 mg NaCl 0.9 % bolus 1,000 mL New Bag 11/11/2017 12:45 PM CDT 1,000 mL 1,000 mL, intravenous, Once, On Bryanna 11/11/17 at 1253, For 1 dose NaCl 0.9% infusion New Bag 11/12/2017 12:25 AM CDT 125 mL/hr 125 mL/hr 125 mL/hr, intravenous, Continuous, Starting on Bryanna 11/11/17 at 1253 New Bag 11/11/2017 5:44 PM CDT 125 mL/hr 125 mL/hr Left Antecubital New Bag 11/11/2017 1:21 PM CDT 125 mL/hr 125 mL/hr ondansetron (PF) injection 4 mg (for_ZOF RAN) Given 11/12/2017 12:25 AM CDT 4 mg 4 mg, intravenous, Once, On Bryanna 11/11/17 at 2315, For 1 dose pantoprazole injection 40 mg (for_PROTON IX) Given 11/11/2017 1:27 PM CDT 40 mg 40 mg, intravenous, Once, On Bryanna 11/11/17 at 1309, For 1 dose, Administer IV push over 2 minutes. Add 10 mL NS to 40 mg vial for a final concentration of 4 mg/mL. pantoprazole injection 40 mg (for_PROTON IX) Given 11/12/2017 8:30 AM CDT 40 mg 40 mg, intravenous, 2 times daily, First dose on Bryanna 11/11/17 at 2100, First dose now if not previously given Administer IV push over 2 minutes. Add 10 mL NS to 40 mg vial for a final concentration of 4 mg/mL. Given 11/11/2017 8:32 PM CDT 40 mg sodium chloride injection 10 mL Given 11/12/2017 9:03 AM CDT 10 mL 10 mL, intravenous, As needed, line care, Starting on Bryanna 11/11/17 at 1230, Peripheral Intravenous Catheter and Rapid Infusion Catheter, prior to blood sampling, post blood transfusion or post blood sampling Given 11/12/2017 8:30 AM CDT 10 mL Given 11/11/2017 8:32 PM CDT 10 mL sodium chloride injection 3 mL 3 mL, intravenous, As needed, line care, Starting on Bryanna 11/11/17 at 1230, Prior to and following infusion and between multi ple consecutive infusions: sodium chloride 0.9 % injection sodium chloride injection 3 mL Given 11/11/2017 8:34 PM CDT 3 mL 3 mL, intravenous, Every 12 hours scheduled, First dose on Bryanna 11/11/17 at 2100, Peripheral Intravenous Catheter and Rapid Infusion Catheter, when no infusion to maintain patency documented in this encounter Active and Recently Administered Medications Times are shown in CDT. Scheduled Medication Order 11/10/2017 11/11/2017 11/12/2017 NaCl 0.9 % bolus 1,000 mL (COMPLETED) 12 45 (New Bag - Provider: Cammie Schuster R.N.)1354 (Stopped - Provider: Cammie Schuster R.N.) 1,000 mL, intravenous, Once, Bryanna 11/11/17 at 1253, For 1 dose ondansetron (PF) injection 4 mg (for_ZOFRAN) (COMPLETED) 0025 (Given - Provider: Marcus Mata R.N.) 4 mg, intravenous, Once, Bryanna 11/11/17 at 2315, For 1 dose pantoprazole injection 40 mg (for_PROTONIX) (COMPLETED) 1327 (Given - Provider: Cammie Schuster R.N.) 40 mg, intravenous, Once, Bryanna 11/11/17 at 1309, For 1 dose, Administer IV push over 2 minutes. Add 10 mL NS to 40 mg vial for a final concentration of 4 mg/mL. pantoprazole injection 40 mg (for_PROTONIX) 1608 ([facility] Hold - Provider: Transfer Provider, Automatic - Reason: Patient not available)1735 ([facility] Unhold - Provider: Transfer Provider, Automatic)2031 (Given - Provider: Marcus Mata R.N.) 0830 (Given - Provider: Gabrielle Nguyen RRoverto) 40 mg, intravenous, 2 times daily, First dose on Bryanna 11/11/17 at 2100, First dose now if not previously given Administer IV push over 2 minutes. Add 10 mL NS to 40 mg vial for a final concentration of 4 mg/mL. sodium chloride injection 3 mL 1608 ([facility] Hold - Provider: Transfer Provider, Automatic - Reason: Patient not available)1735 ([facility] Unhold - Provider: Transfer Provider, Automatic)2033 (Given - Provider: Marcus Mata R.N.) 0900 (Not Given - Provider: Gabrielle Nguyen R.N. - Reason: Other) 3 mL, intravenous, Every 12 hours schedu led, First dose on Bryanna 11/11/17 at 2100, Peripheral Intravenous Catheter and Rapid Infusion Catheter, when no infusion to maintain patency Continuous Medication Order 11/10/2017 11/11/2017 11/12/2017 NaCl 0.9% infusion 1321 (New Bag - Prov ider: Cammie Schuster R.N.)1744 (New Bag - Provider: Todd Valadez R.N.) 0025 (New Bag - Provider: Marcus Mata R.N.)0553 (Due) 125 mL/hr, intravenous, at 125 mL/hr, Continuous, Starting T 11/11/17 at 1253 PRN Medication Order 11/10/2017 11/11/2017 11/12/2017 EPINEPHrine injection (for_ADRENALIN) (COMPLETED) 1653 (Given - Provider: Melany Lira RRoverto - Comment: injected submucousal to bleeding site) Code/trauma/sedation medication, Starting Bryanna 11/11/17 at 1653 fentaNYL injection (for_SUBLIMAZE) (COMPLETED) 1618 (Given - Provider: Melany Lira R.N.) intravenous, Code/trauma/sedation medication, Starting Bryanna at 1618 lidocaine 2 % mucosal solution (for_XYLOCAINE) (COMPLETED) 1614 (Given - Provider: Melany Lira RBrittaneyN.) Code/trauma/sedation medication, Starting [facility] 11/11/17 at 1614 midazolam (PF) injection (for_VERSED) (COMPLETED) 1618 (Given - Provider: Melany Lira RBrittaneyN.)1623 (Given - Provider: Melany Lira R.N.)1626 (Given - Provider: Melany Lira R.N.) Code/trauma/sedation medication, Starting Bryanna 11/11/17 at 1618 sodium chloride injection 10 mL 1254 (Gi pablo - Provider: Cammie Schuster RRoverto)1608 ([facility] Hold - Provider: Transfer Provider, Automatic - Reason: Patient not available)1735 ([facility] Unhold - Provider: Transfer Provider, Automatic)2031 (Given - Provider: Marcus Mata R.N.) 0830 (Given - Provider: Gabrielle Nguyen RBrittaneyNBrittaney)0903 (Given - Provider: Gabrielle Nguyen R.N.) 10 mL, intravenous, As needed, line care , Starting Bryanna 11/11/17 at 1230, Peripheral Intravenous Catheter and Rapid Infusion Catheter, prior to blood sampling, post blood transfusion or post blood sampling sodium chloride injection 3 mL 1608 ([facility] Hold - Provider: Transfer Provider, Automatic - Reason: Patient not available)1735 ([facility] Unhold - Provider: Transfer Provider, Automatic) 3 mL, intravenous, As needed, line care, Starting Bryanna 11/11/17 at 1230, Prior to and following infusion and between multiple consecutive infusions: sodium chloride 0.9 % injection documented in this encounter Additional Health Concerns Assessment Noted Time PHQ-9 Depression Total Score: 7 04/07/2017 9:39 AM CDT documented as of this encounter Care Teams Zyglo Technician Relationship Specialty Start Date End Date Blaire Bundy P.A.-C. PCP - General 02/04/17 04/26/19 documented as of this encounter
--- OUTSIDE RECORDS SUMMARY | 2022-06-29 09:29 | XMS_ITS | Encounter Summary ---
:1985 Author Organization [facility] Address [address] [place] [address] Care Team Providers Name Role Phone Blaire Bundy P.A.-C. Primary Care Provider [phone] Reason for Visit Reason Comments Dizziness Black or Bloody Stool Nausea Rapid Heart Rate Auth/Cert Specialty Diagnoses / Procedures Referred By Contact Refer red To Contact Diagnoses Calculus Of Bile Duct Without Cholangitis Or Cholecystitis With Obstruction Procedures CT ERCP W BX ENDOSCOPIC RETROGRADE CHOLANGIOPANCREATOGRAPHY Referral ID Status Reason Start Date Expiration Date Visits Requ ested Visits Authorized [id number] 1 1 Encounter Details Date Type Department Care Team Description 11/11/2017 Surgery Department of [facility] ESOPHAGOGAMoon TRODUODENOSCOPY Gastroenterology in Marko Marcos M.D. [address] [phone] Social History Tobacco Use Types Packs/Day Years [...] or relatives? How often do you attend temple or episcopalian More than 4 time s per year 07/09/2020 services? Do you belong to any clubs or organizations No 04/19/2019 such as temple groups, unions, fraternal or athletic groups, or [...] Sign Reading Time Taken Comments Blood Pressure 129/84 11/11/2017 4:52 PM CDT Pulse 139 11/11/2017 4:30 PM CDT Temperature 36.7 ??C (98.1 ??F) 11/11/2017 3:45 PM CDT Respiratory Rate 21 11/11/2017 4:30 PM CDT Oxygen Saturation 99% 11/11/2017 4:30 PM CDT Inhaled Oxygen Concentration - - Weight 141 kg (311 lb 8.2 oz) 11/11/2017 2:52 PM CDT Height 157.5 cm (5' 2) 11/11/2017 2:52 PM CDT Body Mass Index 57.38 11/11/2017 2:52 PM CDT documented in this encounter Discharge Summaries Carson Lopez, JOSEFA, C.N.P. - 11/12/2017 8:55 AM CDT INPATIENT DISCHARGE SUMMARY BRIEF OVERVIEW Discharge Provider: Taryn Ozuna M.D. Primary Care Providers: Blaire Thornton P.A.-C. (General) [address] [place] [phone] Primary Care Provider Primary Care Provider Admission Date: 11/11/2017 Discharge Date: 11/12/2017 PRINCIPAL DIAGNOSIS Melena SECONDARY DIAGNOSES Active Problems: Hypovolemic Shock (HCC) Morbid obesity Resolved Problems: * No resolved hospital problems. * Operative Procedures: Scheduled (Blank), Completed (Comp) or Canceled (Can) Case IDs Date Procedure Surgeon Location Status [id number] 11/11/17 ESOPHAGOGASTRODUODENOSCOPY Rubio Baker M.D. [facility] Blank Past Medical History: Diagnosis Date ??? Sleep Apnea Past Surgical History: Procedure Laterality Date ??? ENDOSCOPIC RETROGRADE CHOLANGIOPANCREATOGRAPHY (ERCP) N/A 11/08/2017 Procedure: ENDOSCOPIC RETROGRADE CHOLANGIOPANCREATOGRAPHY; Surgeon: Rubio Baker M.D.; Location: [facility] OR ??? LAPAROSCOPIC APPENDECTOMY N/A 09/08/2017 Procedure: LAPAROSCOPIC APPENDECTOMY; Surgeon: Edd Moeller D.O.; Location: [facility] OR ??? OTHER CONVERTED SHX (SEE COMMENT) [...] result of cautery from ERCP earlier in . Per Gastroenterology ulceration located very close to [...] 1/3 unit of blood. Coordinated care with [facility] in [place]. Patient will be transferred via ambulance to [...] own decisions. FOLLOW UP APPOINTMENTS: Transfer to [facility] TEST RESULTS PENDING AT DISCHARGE: None. [...] Op nausea/vomiting: none Current pain scale: 2/10 Rubio Baker M.D. - 11/12/2017 7:49 AM CDT SUBJECTIVE Patient feels somewhat better after fluids and 2 units of PRBC's. She had two melena bowel movementsovernight. No abdominal pain. She is concerned about further bleeding and would like to transfer to [place]. Still gets winded with any movement. OBJECTIVE [...] ERCPist to treat this. Will transfer to [place] this morning. NPO. Discussed case with Dr. Cassidy Quiroz, the accepting physician. Discussed with hospitalist team and patient. Total time 25 minutes, 15 minutes spent in counseling and coordination of care. documented in this encounter H&P Notes Carson Lopez APRN, KendalNLebron. - 11/11/2017 2:21 PM CDT CHIEF COMPLAINT [...] RETROGRADE CHOLANGIOPANCREATOGRAPHY; Surgeon: Rubio Baker M.D.; Location: [facility] OR ??? LAPAROSCOPIC APPENDECTOMY N/A 09/08/2017 Procedure: LAPAROSCOPIC APPENDECTOMY; Surgeon: Edd Moeller D.O.; Location: [facility] OR ??? OTHER CONVERTED SHX (SEE COMMENT) [...] 3:51 PM CDTAssociated Order(s): UPPER GI ENDOSCOPY [facility] [place] [facility] Patient Name: Carol Cooley Procedure Date: [...] specimens collected. Recommendation: - After discussing with [place], as she has achieved some hemostasis, will observe. - Continue Protonix 40 mg IV BID. - Minimal clear liquids are OK. - If she continues to significantly bleed, and certainly if she becomes unstable, then will plan on transferring to [place] for further therapy. Findings: The esophagus was [...] Heart Rate HISTORY OF PRESENT ILLNESS Carol Cooley is a pleasant 31 y.o. female [...] Mass Index 50.0 To 59.9 Adult ([facility]) ??? Abuse Tobacco Smoking ??? Migraine [...] RETROGRADE CHOLANGIOPANCREATOGRAPHY; Surgeon: Rubio Baker M.D.; Location: [facility] OR ??? LAPAROSCOPIC APPENDECTOMY N/A 09/08/2017 Procedure: LAPAROSCOPIC APPENDECTOMY; Surgeon: Edd Moeller D.O.; Location: [facility] OR ??? OTHER CONVERTED SHX (SEE COMMENT) [...] - 11/12/2017 9:26 AM CDT Transfer to [place] report given to Don Gabrielle Nguyen R.N. - 11/12/2017 9:22 AM CDT Goals: Clinical Goals for the Shift: reduce heart rate; improve hemoglobin level Identify possible barriers to meeting goals/advancing plan of care: none Stability of the patient: Moderately Stable - Low risk of patient condition declining or worsening End of Shift Summary: pt to transfer to [place] Marcus Mata R.N. - 11/12/2017 5:12 AM CDT Goals: Clinical Goals for the Shift: reduce heart rate; improve hemoglobin level Identify possible barriers to meeting goals/advancing plan of care: melena; hypovolemic shock Stability of the patient: Moderately Unstable - Medium risk of patient condition declining or worsening End of Shift Summary: HR has improved over the duration of this night baker; initially HR was 130-140, now HR is [...] with her family history of CAD and [place] as well as her recent surgery and [...] Red Blood Cells (11/12/2017 9:07 AM CDT) Kaye Grimes APRN, C.N.P., M.S.N. BLOOD TRANSFUSION O RDERABLES (ABNORMAL) Hemoglobin (11/12/2017 5:40 AM CDT) P athologist Signature Hemoglobin 7.6 (L) 11.6 - 15.0 11/12/2017 [facility] g/dL 5:47 AM CDT [facility] Specimen Anatomical Collection Method Collection Time Receive d Time (Source) Location / / Volume Laterality Blood (Blood, 11/12/2017 5:40 AM 11/13/19 18 5:45 Venous) CDT AM CDT Kendal Santacruz APRNN.P. LAB BLOOD ADD-ON Performing Organization Address City/State/ZIP Code Phon e Number [facility] [address] [place] [address] [facility] (ABNORMAL) Hemoglobin (11/12/2017 12:21 AM CDT) P athologist Signature Hemoglobin 8.9 (L) 11.6 - 15.0 11/12/2017 [facility] g/dL 12:24 AM CDT [facility] Specimen Anatomical Collection Method Collection Time Receive d Time (Source) Location / / Volume Laterality Blood (Blood, 11/12/2017 12:21 11/12/2017 Venous) AM CDT 12:21 AM CDT Kendal Santacruz APRNN.P. LAB BLOOD ADD-ON Performing Organization Address City/State/ZIP Code Phon e Number [facility] [address] [place] [address] [facility] Transfuse Red Blood Cells (11/11/2017 10:52 PM CDT) Kaye Grimes APRN, C.N.P., M.S.N. BLOOD TRANSFUSION O RDERABLES Transfuse Red Blood Cells : , 1 Units (11/11/2017 10:52 PM CDT) Kendal Boudreaux APRNNLebron., M.S.N. BLOOD TRANSFUSION O RDERABLES (ABNORMAL) Hemoglobin (11/11/2017 6:15 PM CDT) P athologist Signature Hemoglobin 8.7 (L) 11.6 - 15.0 11/11/2017 [facility] g/dL 6:21 PM CDT [facility] Specimen Anatomical Collection Method Collection Time Receive d Time (Source) Location / / Volume Laterality Blood (Blood, 11/11/2017 6:15 PM 11/12/19 18 6:19 Venous) CDT PM CDT Kendal Santacruz APRNNLebron. LAB BLOOD ADD-ON Performing Organization Address City/State/ZIP Code Phon e Number [facility] [address] [place] [address] [facility] Transfuse Red Blood Cells (11/11/2017 [...] 11/11/2017 3:5 1 PM CDT [facility] [place] [facility] Patient Name: Carol Cooley Procedure Date: [...] to the pancreatic duct orifice. Discussed with [place], although they were not able to see the pictures. - No specimens collected. Recommendation: - After discussing with [place], as s he has achieved some hemostasis, will observe. - Continue Protonix 40 mg IV BID. - Minimal clear liquids are OK. - If she continues to significantly ble ed, and certainly if she becomes unstable, then will plan on transferrin g to [place] for further therapy. Findings: The esophagus was [...] Signature Prothrombin 9.4 8.8 - 11.9 11/11/2017 [facility] Time, P sec 12:58 PM CDT [facility] INR 0.9 0.9 - 1.2 11/11/2017 [facility] 12:58 PM CDT [facility] Comment: Standard intensity warfarin therapeutic range: 2.0 to 3.0 High intensity warfarin therapeutic rang e: 2.5 to 3.5 Specimen Anatomical Collection Method Collection Time Receive d Time (Source) Location / / Volume Laterality Blood (Blood, 11/11/2017 12:39 11/11/2017 Venous) PM CDT 12:42 PM CDT Nuno Love M.D. LAB BLOOD ADD-ON Performing Organization Address City/State/ZIP Code Phon e Number [facility] [address], [place] [address] [facility] Lactate (11/11/2017 12:39 PM CDT) P athologist Signature Lactate, P 2.1 0.6 - 2.3 11/11/2017 [facility] mmol/L 12:59 PM CDT [facility] Specimen Anatomical Collection Method Collection Time Receive d Time (Source) Location / / Volume Laterality Blood (Blood, 11/11/2017 12:39 11/11/2017 Venous) PM CDT 12:42 PM CDT Nuno Love M.D. LAB BLOOD NON ADD-ON Performing Organization Address City/State/ZIP Code Phon e Number [facility] [address] [place] [address] [facility] documented in this encounter Visit Diagnoses Diagnosis Melena - Primary Melena Hypovolemic Shock (HCC) Hemorrhage Gastrointestinal Hypovolemic Shock (HCC) Melena documented in this encounter Admitting Diagnoses Diagnosis Melena documented in this encounter Administered Medications Inactive Administered Medications - up to 3 most recent administrations Medication Order MAR Action Action Date Dose Rate Site NaCl 0.9% infusion New Bag 11/12/2017 12:25 AM 125 mL/hr 125 mL/hr 125 mL/hr, intravenous, CDT Continuous, Starting on Bryanna 11/11/17 at 1253 New Bag 11/11/2017 5:44 PM CDT 125 mL/hr 125 mL/hr Left Antecubital New Bag 11/11/2017 1:21 PM CDT 125 mL/hr 125 mL/hr pantoprazole injection 40 mg (for_PROTON IX) Given [...] (COMPLETED) 1327 (Given - Provider: Cammie Schuster RRoverto) 40 mg, intravenous, Once, Bryanna 18 at 1309, For 1 dose, Administer IV push over 2 minutes. Add 10 mL NS to 40 mg vial for a final concentration of 4 mg/mL. pantoprazole injection 40 mg (for_PROTONIX) 1608 ([facility] Hold - Provider: Transfer Provider, Automatic - Reason: Patient not available)1735 ([facility] Unhold - Provider: Transfer Provider, Automatic)2031 (Given - Provider: Marcus Mata R.N.) 0830 (Given - Provider: Gabrielle Nguyen R.N.) 40 mg, intravenous, 2 times daily, First [...] available)1735 ([facility] Unhold - Provider: Transfer Provider, Automatic)2034 (Given - Provider: Marcus Mata RRoverto) 0900 (Not Given - Provider: Gabrielle Nguyen R.N. - Reason: Other) 3 mL, intravenous, Every 12 hours schedu led, First dose on Bryanna 11/11/17 at 2100, Peripheral Intravenous Catheter and Rapid Infusion Catheter, when no infusion to maintain patency Continuous Medication Order 11/10/2017 11/11/2017 11/12/2017 NaCl 0.9% infusion 1321 (New Bag - Prov ider: Cammie Schuster RBrittaneyNBrittaney)1744 (New Bag - Provider: Todd Valadez RRoverto) 0025 (New Bag - Provider: Marcus Mata R.N.)0553 (Due) 125 mL/hr, intravenous, at 125 mL/hr, Continuous, Starting T 11/11/17 at 1253 PRN Medication Order 11/10/2017 11/11/2017 11/12/2017 EPINEPHrine injection (for_ADRENALIN) (COMPLETED) 1653 (Given - Provider: Melany Lira RRoverto - Comment: injected submucousal to bleeding site) Code/trauma/sedation medication, Starting Bryanna 11/11/17 at 1653 fentaNYL injection (for_SUBLIMAZE) (COMPLETED) 1618 (Given - Provider: Melany Lira RBrittaneyNBrittaney) intravenous, Code/trauma/sedation medication, Starting Bryanna at 1618 lidocaine 2 % mucosal solution (for_XYLOCAINE) (COMPLETED) 1614 (Given - Provider: Melany Lira, R.N.) Code/trauma/sedation medication, Starting Bryanna 11/11/17 at 1614 midazolam (PF) injection (for_VERSED) (COMPLETED) 1618 (Given - Provider: Melany Lira R.N.)1623 (Given - Provider: Melany Lira R.N.)1626 (Given - Provider: Ruben AbdiN.) Code/trauma/sedation medication, Starting Bryanna 11/11/17 at 1618 sodium chloride injection 10 mL 1254 (Gi pablo - Provider: Cammie Schuster R.N.)1608 ([facility] Hold - Provider: Transfer Provider, Automatic - Reason: Patient not available)1735 ([facility] Unhold - Provider: Transfer Provider, Automatic)2032 (Given - Provider: Marcus Mata RBrittaneyNBrittaney) 0830 (Given - Provider: Gabrielle Nguyen RBrittaneyNBrittaney)0903 (Given - Provider: Gabrielle Nguyen R.N.) 10 mL, intravenous, As needed, line care , Starting Bryanna 11/11/17 at 1230, Peripheral Intravenous Catheter and Rapid Infusion Catheter, prior to blood sampling, post blood transfusion or post blood sampling sodium chloride injection 3 mL 1608 ([facility] Hold - Provider: Transfer Provider, Automatic - Reason: Patient not available)1735 ([facility] Unhold - Provider: Transfer Provider, Automatic) 3 mL, intravenous, As needed, line care, Starting Bryanna 11/11/17 at 1230, Prior to and following infusion and between multiple consecutive infusions: sodium chloride 0.9 % injection documented in this encounter Additional Health Concerns Assessment Noted Time PHQ-9 Depression Total Score: 7 04/07/2017 9:39 AM CDT documented as of this encounter Care Teams Coastal/[employer] Defense Officer Relationship Specialty Start Date End Date Blaire Bundy P.A.-C. PCP - General 02/04/17 04/26/19 documented as of this encounter
--- OUTSIDE RECORDS SUMMARY | 2022-06-29 09:29 | XMS_ITS | Encounter Summary ---
:1985 [facility] Address [address] [place] [address] Care Team Providers Name Role Phone Blaire Bundy P.A.-C. Primary Care Provider [phone] Reason for Visit Reason Comments Shortness of Breath pt was here Wed. and was dx with pleurisy and is not getting better. c/o SOB, heartburn, nausea and has white in her stool Encounter Details Date Type Department Care Team Description 11/07/2017 Emergency [place] [facility] Dimitri Car, Dil ated Common Bile Duct (Primary Dx); Department M.D. Tenderness Epigastric [address] [facility] [address] [place] [phone] (Wo rk) Social History Tobacco Use Types Packs/Day Years Used Date Smoking Tobacco: Light Smoker Smokeless Tobacco: Never Alcohol Use Standard Drinks/Week [...] How often do you attend congregational or mormon More than 4 time s per year [...] Sign Reading Time Taken Comments Blood Pressure 141/64 11/07/2017 6:30 PM CDT Pulse 62 11/07/2017 6:45 PM CDT Temperature 36.2 ??C (97.2 ??F) 11/07/2017 5:58 PM CDT Respiratory Rate 18 11/07/2017 5:58 PM CDT Oxygen Saturation 95% 11/07/2017 6:45 PM CDT Inhaled Oxygen Concentration - - Weight 141 kg (309 lb 15.5 oz) 11/07/2017 5:57 PM CDT Height - - Body Mass Index 56.69 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 - 11/07/2017 8:51 PM CDT YOU SHOULD NOT HAVE ANYTHING TO EAT OR DRINK AFTER 12 MIDNIGHT. YOU DO NEED A FIRST BREAKER FEEDER AFTER THE ERCP PLANNED FOR TOMORROW AFTERNOON TENTATIVELY. AttachmentsThe following attachments cannot be sent through Care Everywhere. About Your ERCP, (Endoscopic Retrograde Cholangiopancreatography) (Turkish) documented in this encounter Medications at Time of Discharge Medication Sig Dispensed Refills Start Date End Date acetaminophen (for_TYLENOL) Take 1-2 tablets 0 500 mg tablet by mouth every 6 (six) hours as needed. HYDROcodone-acetaminophen Take 1 tablet by 0 11/15/2017 (for_NORCO) 5-325 mg per mouth every 6 tablet (six) hours as needed for pain. ibuprofen Take 200 mg by 0 11/12/2017 (for_ADVIL,MOTRIN) 200 mg mouth as needed. tablet methylPREDNISolone follow package 21 tablet 0 11/04/2017 (for_MEDROL DOSEPACK) 4 mg directions. tablet ondansetron ODT Take 1 tablet (4 10 tablet 0 11/07/2017 (for_ZOFRAN-ODT) 4 mg mg total) by mouth disintegrating tablet 3 (three) times a day as needed for nausea or vomiting for up to 3 days. Given from [facility] documented as of this encounter ED Notes Dimitri Car M.D. - 11/07/2017 6:26 PM CDT Images from the original note were not included. SUBJECTIVE CHIEF COMPLAINT/REASON FOR VISIT Shortness of Breath (pt was here Wed. and was dx with pleurisy and is not getting better. c/o SOB, heartburn, nausea and has white in her stool) HISTORY OF PRESENT ILLNESS 31 year old female with a history of smoking tobacco abuse, morbid obesity with body mass index between 50.0 to 50.9, migraine headache, dysthymia, and attention deficit with hyperactivity disorder presents ambulatory to the [place] [facility] with her friend via private vehicle for the evaluation of shortness of breath. The patient was seen on 11/03/17 for evaluation of chest pain and shortness of breath. She was diagnosed with pleurisy, and prescribed a Medrol Dosepak, which she is still taking. Today, the patient presents with shortness of breath and epigastric to chest pain which haspersisted. In addition, she has been nauseated, and is having white stools today. Here, she rates her pain, located primarily at the bottom of her sternum, as a 6/10. She describes it as being like heartburn, but not heartburn. The patient does have chronic leg swelling which has not changed. She has taken Omeprazole and Zantac, as well as ibuprofen, with no relief. She did take on hydrocodone thismorning with mild improvement of her pain. The patient explains that she came in today as somethingjust isn't right with my body. Denies pain upon breathing, fever, chills, lower abdominal pain, andany other symptoms of concern at this time. Of note, the patient has taken her Medrol Dosepak today.She missed her Depo-Provera injection this month, but is still planning on receiving it before the month ends. Her 4 month old son was diagnosed with fatty liver disease two weeks ago. She is scheduledfor a gallbladder ultrasound on 11/09. Her maternal grandmother had gallbladder issues, and her father had a cholecystectomy done. 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 HENT: Negative for ear pain and sore throat. Eyes: Negative for pain and visual disturbance. Respiratory: Positive for shortness of breath. Negative for cough. Cardiovascular: Positive for chest pain (like heartburn but not, located at bottom of sternum) andleg swelling (chronic, no change). Negative for palpitations. Gastrointestinal: Positive for abdominal distention and nausea. Negative for abdominal pain, constipation, diarrhea and vomiting. Positive for white stools. Genitourinary: Negative for dysuria, flank pain and hematuria. Musculoskeletal: Negative for back pain and extremity pain. Skin: Negative for color change and rash. Neurological: Negative for weakness and headaches. Psychiatric/Behavioral: Negative for depression. The patient is not nervous/anxious. OBJECTIVE Initial Vitals Temperature Pulse Rate Heart Rate Resp Rate Blood Pressure SpO2 11/07/17 1758 11/07/17 1758 -- 11/07/17 1758 11/07/17 1758 11/07/17 175 36.2 ??C 83 18 151/66 94 % Pain Score 11/07/17 175 5 - Moderate pain PHYSICAL EXAMINATION Constitutional: She appears well-nourished. No distress. HENT: Head: Normocephalic and atraumatic. Right Ear: Tympanic membrane normal. Left Ear: Tympanic membrane normal. Mouth/Throat: Mucous membranes are moist. No posterior oropharyngeal erythema. Eyes: Conjunctivae and EOM are normal. Pupils are equal, round, and reactive to light. Neck: Normal range of motion. No thyromegaly present. Cardiovascular: Regular rhythm and normal heart sounds. No murmur heard. Pulmonary/Chest: Effort normal and breath sounds normal. There is normal air entry. She has no wheezes. Abdominal: Soft. Bowel sounds are normal. There is tenderness in the epigastric area. There is no rebound and no guarding. Musculoskeletal: Normal range of motion. She exhibits no deformity. Neurological: She is alert and oriented to person, place, and time. She has normal reflexes. Skin: Skin is warm and dry. No rash noted. Psychiatric: She has a normal mood and affect. Her behavior is normal. Nursing note and vitals reviewed. ASSESSMENT/PLAN Impression and Plan Her shortness of breath I think is more related to the abdominal issue. She likely does have a common bile duct gallstone. She does not appear to have acute cholecystitis yet. After discussion with Dr.Dave Baker, Gastroenterology, I was able to make arrangements to have her ultrasound done at 9:00 a.m. tomorrow. She will follow up with Dr. Baker for likely Endoscopic Retrograde Cholangiopancreatopgraphy (ERCP) in the afternoon. She does have a few pain pills left at home. I did give her some Zofran ODT through the [facility] for breakthrough nausea. I did give her a note for work to be off for tomorrow night and then possibly on Wednesday.. ED Course as of Nov 07 2138 Sun Nov 07, 20172009 Her alkaline phosphatase is increased to 275, ALT is 1877, and AST is 775. Total bilirubin is 2.0 with direct bilirubin of 1.5. On November 04 these were 167, 1350, 1084, and 2.8. Her test is negative. Lipase is normal at 45. Lactate is normal at 0.8. Alkaline Phosphatase, S: (!) [address] does show that her common bile duct dilated to 11 mm with dilation of the intrahepatic biliary ducts. Gallbladder is mildly distended. No specific gallstones. No specific evidenceof acute cholecystitis. Compared to CT abdomen pelvis with IV contrast on September 08, 2017, the common bile duct was 9.5 at that time. 2014 I did discuss the results of her labs and the abdominal CT with Dr. Elmer Baker, Gastroenterology. He felt she likely does have a common bile duct gallstone and will likely need ERCP. He did recommend doing the ultrasound in the morning tomorrow on Wednesday and then having her be NPO after midnightand then planning on doing an ERCP in the afternoon. He will check with the endoscopy clinic tomorrow to help schedule that. I did forward a message to him with her contact information. 2024 The nausea is significantly improved. Pain is improved down to 3/10. She declined the need for further pain medication. I did discuss the abdominal CT and the recommendation from Dr. Baker. I wasable to contact Radiology and make arrangements to have her ultrasound done at 9:00 a.m. tomorrow November 08. She should follow up with the Gastroenterology clinic and plan on doing the ERCP in the afternoon. She does need to be NPO after midnight and have a milk pickup driver available to drive her home afternoon. Final Diagnoses: as of Nov 07 2138 Dilated Common Bile Duct Tenderness Epigastric I personally performed the services described in this documentation, as scribed in my presence, and it is both accurate and complete. Portions of this chart was completed with speech recognition software. Therefore, please be aware that it may contain recognition errors including nonsensical words and phrases, along with missing words. Dimitri Car M.D. 11/07/172139 documented in this encounter Plan of Treatment Scheduled Procedures Name Priority Associated Diagnoses Date/Time COLONOSCOPY Diarrhea documented as of this encounter Procedures Procedure Name Priority Date/Time Associated Comments Diagnosis CT ABDOMEN PELVIS RAD - Semiurgent 11/07/2017 8:07 Res ults for this WITH IV CONTRAST (Fast; most ED PM CDT procedure are in patients; some the results inpatients) section. HEPATIC FUNCTION STAT 11/07/2017 6:48 Results for this PANEL, S PM CDT procedure are i n the results section. CBC WITH STAT 11/07/2017 6:48 Results for this DIFFERENTIAL, B PM CDT procedure ar e in the results section. HUMAN CHORIONIC STAT 11/07/2017 6:48 Results f or this GONADOTROPIN (HCG), PM CDT procedur e are in [facility], the results section. LIPASE, S/P STAT 11/07/2017 6:48 Results for this PM CDT procedure are i n the results section. LACTATE, B/P STAT 11/07/2017 6:48 Results for this PM CDT procedure are i n the results section. BASIC METABOLIC STAT 11/07/2017 6:48 Results f or this PANEL, S/P PM CDT procedure are i n the results section. documented in this encounter Results US Abdomen Complete (11/08/2017 9:45 AM CDT) Anatomical Region Laterality Modality Abdomen N/A Ultrasound Specimen (Source) Anatomical Collection Method Collection Time Re ceived Time Location / / Volume Laterality 11/08/2017 10:08 AM CDT Impressions 11/08/2017 10:12 AM CDT IMPRESSION: 1. ??Cholelithiasis, without evidence of acute cholecystitis. 2. ??Bile duct dilatation is noted, the common bile duct measuring up to 8.7 mm in the common hepatic duct measuring 9.6 mm, without confirmed evidence of intraluminal filling defects. By report, patient is currently scheduled for ERCP later today. 3. ??Suspect fatty infiltration of the l iver. Narrative 11/08/2017 10:12 AM CDT EXAM: US ABDOMEN COMPLETE COMPARISON: None FINDINGS: Liver: Echogenic hepatic parenchyma sugg esting fatty infiltration. Gallbladder: Cholelithiasis. Ringdown ar tifact is noted involving the gallbladder wall, likely related to unde rlying chronic adenomyomatosis. No intramural edema or evidence of gallblad duyen wall thickening. Negative sonographic Flaherty sign, per so nographer. Intrahepatic ducts: Minimal intrahepatic bile duct dilatation is noted. Common duct: Common hepatic duct is dila pipe measuring 9.6 mm with dilatation of the common bile duct measuring 8.7 mm. N o definite evidence of intraluminal filling defects. Pancreas: Normal where seen. Right kidney: Length of 12.5 cm. Normal. No hydronephrosis. Left kidney: Length of 9.8 cm. Normal. N o hydronephrosis. Aorta: Normal caliber. IVC: Normal where seen. Spleen: Normal. Spleen measures 12.6 cm. Other: No ascites. Procedure Note Morgan Mcclure M.D. - 11/08/2017Formatt ing of this note might be different from the original. EXAM: US ABDOMEN COMPLETE COMPARISON: None FINDINGS: Liver: Echogenic hepatic parenchyma sugg esting fatty infiltration. Gallbladder: Cholelithiasis. Ringdown ar tifact is noted involving the gallbladder wall, likely related to unde rlying chronic adenomyomatosis. No intramural edema or evidence of gallblad duyen wall thickening. Negative sonographic Flaherty sign, per so nographer. Intrahepatic ducts: Minimal intrahepatic bile duct dilatation is noted. Common duct: Common hepatic duct is dila pipe measuring 9.6 mm with dilatation of the common bile duct measuring 8.7 mm. N o definite evidence of intraluminal filling defects. Pancreas: Normal where seen. Right kidney: Length of 12.5 cm. Normal. No hydronephrosis. Left kidney: Length of 9.8 cm. Normal. N o hydronephrosis. Aorta: Normal caliber. IVC: Normal where seen. Spleen: Normal. Spleen measures 12.6 cm. Other: No ascites. IMPRESSION: 1. Cholelithiasis, without evidence of a cute cholecystitis. 2. Bile duct dilatation is noted, the co mmon bile duct measuring up to 8.7 mm in the common hepatic duct measuring 9.6 mm, without confirmed evidence of intraluminal filling defects. By report, patient is currently scheduled for ERCP later today. 3. Suspect fatty infiltration of the soraida er. Dimitri Car M.D. IMSendy US PROCEDURES CT Abdomen Pelvis with IV Contrast (11/07/2017 8:07 PM CDT) Anatomical Region Laterality Modality Abdomen, Pelvis N/A Computed Tomography Specimen (Source) Anatomical Collection Method Collection Time Re ceived Time Location / / Volume Laterality 11/08/2017 7:54 AM CDT Impressions 11/08/2017 8:02 AM CDT IMPRESSION: 1. ??Dilated biliary system. No radiopaq ue calculus identified. Recommend further evaluation with ultrasound or MRCP. 2. ??Right colonic wall thickening\edema . Findings can be seen with colitis in the appropriate clinical context. Narrative 11/08/2017 8:02 AM CDT EXAM: CT ABDOMEN PELVIS WITH IV CONTRAST COMPARISON: 09/08/2017 CT FINDINGS: No lung base consolidation. Borderline l ow attenuation of liver. Intrahepatic biliary ductal dilatation. Common bile d uct is dilated to 12 mm. Gallbladder is distended. Pancreas is unremarkable. Spl enomegaly. No suspicious adrenal gland lesions. The kidneys enhance symmetrical ly. No hydronephrosis. 2 mm nonobstructing calculus right kidney. No pneumoperitoneum or significant free fluid in the abdomen or pelvis. Borderline right colonic wall thickening . Appendectomy. Terminal ileum is grossly unremarkable. No abdominal aortic aneurysm. No lymphad enopathy by size criteria. Pelvic phleboliths. Urinary bladder is unremark able. Minimal fat herniates at the umbilicus. Degenerative changes of the s pine. Procedure Note Cedric Lozada M.D. - 11/08/2017Formatt ing of this note might be different from the original. EXAM: CT ABDOMEN PELVIS WITH IV CONTRAST COMPARISON: 09/08/2017 CT FINDINGS: No lung base consolidation. Borderline l ow attenuation of liver. Intrahepatic biliary ductal dilatation. Common bile d uct is dilated to 12 mm. Gallbladder is distended. Pancreas is unremarkable. Spl enomegaly. No suspicious adrenal gland lesions. The kidneys enhance symmetrical ly. No hydronephrosis. 2 mm nonobstructing calculus right kidney. No pneumoperitoneum or significant free fluid in the abdomen or pelvis. Borderline right colonic wall thickening . Appendectomy. Terminal ileum is grossly unremarkable. No abdominal aortic aneurysm. No lymphad enopathy by size criteria. Pelvic phleboliths. Urinary bladder is unremark able. Minimal fat herniates at the umbilicus. Degenerative changes of the s pine. IMPRESSION: 1. Dilated biliary system. No radiopaque calculus identified. Recommend further evaluation with ultrasound or MRCP. 2. Right colonic wall thickening\edema. Findings can be seen with colitis in the appropriate clinical context. Dimitri Car M.D. IMG CT PROCEDURES hCG (Human Chorionic Gonadotropin), Quantitative, (11/07/2017 6:48 PM CDT) P athologist Signature HCG, <0.5 IU/L 11/07/2017 [facility] Quantitative, 7:25 PM CDT [facility] [place] [facility] Comment: Biotin has been identified by the doug cturer as a potential interfering substance. ??Higher concentr ations of biotin may be found in multivitamins, hair/nail supple ments, and workout supplements. ??If the result does not [facility] clinical observations, repeat testing after patient refrains fr om the use of supplements for at least 12 hours. ----REFERENCE VALUE---- <5.0 Negative 5.0-25.0 Indeterminate >25.0 Positive Specimen Anatomical Collection Method Collection Time Receive d Time (Source) Location / / Volume Laterality Blood (Blood, 11/07/2017 6:48 PM 11/08/19 18 6:51 Venous) CDT PM CDT Dimitri Car M.D. LAB BLOOD ADD-ON Performing Organization Address City/State/ZIP Code Phon e Number [facility] [address] [place] [address] [facility] Lactate (11/07/2017 6:48 PM CDT) P athologist Signature Lactate, P 0.8 0.6 - 2.3 11/07/2017 [facility] mmol/L 7:[address] [facility] Specimen Anatomical Collection Method Collection Time Receive d Time (Source) Location / / Volume Laterality Blood (Blood, 11/07/2017 6:48 PM 11/08/19 6:51 Venous) CDT PM CDT Dimitri Car M.D. LAB BLOOD NON ADD-ON Performing Organization Address City/State/ZIP Code Phon e Number [facility] [place] [address] [facility] (ABNORMAL) Hepatic Function Panel (11/07/2017 6:48 PM CDT) [facility] Method Time Signature Bilirubin, Total, S 2.0 (H) <=1.2 11/07/2017 [facility] mg/dL 7:14 PM CDT [facility] Bilirubin, Direct, S 1.5 (H) 0.0 - 0.3 11/07/2017 [facility] mg/dL 7:14 PM CDT [facility] Aspartate 775 (H) 8 - 43 11/07/2017 [facility] Aminotransferase U/L 7:26 PM CDT [facility] Alanine 1877 (H) 7 - 45 11/07/2017 [facility] Aminotransferase U/L 7:26 PM CDT [employer] (ALT[facility] Alkaline 275 (H) 37 - 98 11/07/2017 [facility] Phosphatase, S U/L 7:14 PM CDT [facility] Albumin, S 4.0 3.5 - 5.0 11/07/2017 [facility] g/dL 7:14 PM CDT [facility] Protein, Total, S 7.1 6.3 - 7.9 11/07/2017 [facility] g/dL 7:14 PM T [facility] Specimen Anatomical Collection Method Collection Time Receive d Time (Source) Location / / Volume Laterality Blood (Blood, 11/07/2017 6:48 PM 11/08/19 18 6:51 Venous) CDT PM CDT Dimitri Car M.D. LAB BLOOD ADD-ON Performing Organization Address City/State/ZIP Code Phon e Number [facility] [address] [place] [address], [place] [address] [facility] BMP (Basic Metabolic Panel) (11/07/2017 6:48 PM CDT) P athologist Signature Potassium, P 4.3 3.6 - 5.2 11/07/2017 [facility] mmol/L 7:11 PM T [facility] Sodium, P 139 135 - 145 11/07/2017 [facility] mmol/L 7:11 PM [facility] Chloride, P 100 98 - 107 11/07/2017 [facility] mmol/L 7:11 PM [facility] Bicarbonate, P 25 22 - 29 11/07/2017 [facility] mmol/L 7:11 PM [facility] Anion Gap, P 14 7 - 15 11/07/2017 [facility] 7:11 PM T [facility] BUN (Blood Urea 16 6 - 21 11/07/2017 [facility] Nitrogen), P mg/dL 7:11 PM [facility] Creatinine 0.76 0.59 - 11/07/2017 [facility] 1.04 mg/dL 7:11 PM [facility] eGFR-Black/Afri >90 >=60 11/07/2017 [facility] can Mauritanian mL/min/BSA 7:11 PM [facility] Comment: ----ADDITIONAL INFORMATION---- Estimated GFR calculated using the 2009 CKD_EPI creatinine equation. eGFR Non-Black/ >90 >=60 mL/min/BSA 11/07/2017 7:11 PM [facility] [place]itanian [facility] Comment: ----ADDITIONAL INFORMATION---- Estimated GFR calculated using the 2009 CKD_EPI creatinine equation. Calcium, Total, P 9.5 8.9 - 10.1 mg/dL 11/07/2017 7 :11 PM CDT [facility] Glucose, P 129 70 - 140 mg/dL 11/07/2017 7:[address] [facility] Specimen Anatomical Collection Method Collection Time Receive d Time (Source) Location / / Volume Laterality Blood (Blood, 11/07/2017 6:48 PM 11/08/19 6:51 Venous) CDT PM CDT Dimitri Car M.D. LAB BLOOD ADD-ON Performing Organization Address City/State/ZIP Code Phon e Number [facility] [place] [address] [facility] Lipase (11/07/2017 6:48 PM CDT) athologist Signature Lipase, P 45 13 - 60 U/L 11/07/2017 [facility] 7:05 PM CDT [facility] Specimen Anatomical Collection Method Collection Time Receive d Time (Source) Location / / Volume Laterality Blood 11/07/2017 6:48 PM 8 6:51 CDT PM CDT Dimitri Car M.D. LAB BLOOD ADD-ON Performing Organization Address City/State/ZIP Code Phon e Number [facility] [place] [place] [address] [facility] CBC with Differential (11/07/2017 6:48 PM CDT) athologist Signature Hemoglobin 13.5 11.6 - 11/07/2017 [facility] 15.0 g/dL 6:54 PM CDT [facility] Hematocrit 42.1 35.5 - 11/07/2017 [facility] 44.9 % 6:54 PM CDT [facility] Erythrocytes 4.97 3.92 - 11/07/2017 [facility] 5.13 6:54 PM CDT [facility] x[facility](12)/[facility] MCV 84.7 78.2 - 11/07/2017 [facility] 97.9 fL 6:54 PM CDT [facility] RBC Distrib Width 14.9 12.2 - 11/07/2017 [facility] 16.1 % 6:54 PM CDT [facility] Platelet Count 294 157 - 371 11/07/2017 [facility] x10(9)/L 6:54 PM CDT [facility] Leukocytes 7.6 3.4 - 9.6 11/07/2017 [facility] x10(9)/L 6:54 PM CDT [facility] Neutrophils 5.64 1.56 - 11/07/2017 [facility] 6.45 6:54 PM CDT [facility](9)/[facility] Lymphocytes 1.33 0.95 - 11/07/2017 [facility] 3.07 6:54 PM CDT [facility](9)/[facility] [place] [place] [facility] Monocytes 0.50 0.26 - 11/07/2017 [facility] 0.81 6:54 PM CDT [facility](9[facility] [place] Eosinophils 0.04 0.03 - 11/07/2017 [facility] 0.48 6:54 PM CDT [facility] x[facility](9)/[facility] Basophils 0.04 0.01 - 11/07/2017 [facility] 0.08 6:54 PM CDT [facility](9[facility] [facility] Specimen Anatomical Collection Method Collection Time Receive d Time (Source) Location / / Volume Laterality Blood (Blood, 11/07/2017 6:48 PM 11/08/19 18 6:51 Venous) CDT PM CDT Dimitri Car M.D. LAB BLOOD ADD-ON Performing Organization Address City/State/ZIP Code Phon e Number [facility] [address] [facility] [place] [address] [facility] documented in this encounter Visit Diagnoses Diagnosis Dilated Common Bile Duct - Primary Tenderness Epigastric Dilated Common Bile Duct Tenderness Epigastric documented in this encounter Administered Medications Inactive Administered Medications - up to 3 most recent administrations Medication Order MAR Action Action Date Dose Rate Site iohexol 350 mg iodine/mL solution 171 mL (for_OMNIPAQUE) 171 mL, intravenous, Once in imaging, co ntrast, Starting on 11/07/17 at 1909, For 1 dose ipratropium-albuterol 0.5-2.5 mg/3 mL nebulizer Given 11/07/2017 6:52 PM CDT 3 mL solution 3 mL (for_DUO-NEB) 3 mL, nebulization, Once, On 11/07/17 at 1840, For 1 dose ondansetron (PF) injection 4 mg (for_ZOF RAN) Given 11/07/2017 6:53 PM CDT 4 mg 4 mg, intravenous, Every 20 min PRN, nausea, vomiting, Starting on 11/07/17 at 1839, For 2 doses pantoprazole injection 40 mg (for_PROTON IX) Given 11/07/2017 6:53 PM CDT 40 mg 40 mg, intravenous, Once, On 11/07/17 at 1840, For 1 dose, Administer IV push over 2 minutes. Add 10 mL NS to 40 mg vial for a final concentration of 4 mg/mL. sodium chloride injection 10 mL Given 11/07/2017 6:53 PM CDT 10 mL 10 mL, intravenous, As needed, line care, Starting on 11/07/17 at 1837, Peripheral Intravenous Catheter and Rapid Infusion Catheter, prior to blood sampling, post blood transfusion or post blood sampling sodium chloride injection 10 mL 10 mL, intravenous, As needed, line care, Starting on 11/07/17 at 1909 sodium chloride injection 3 mL 3 mL, intravenous, As needed, line care, Starting on 11/07/17 at 1837, Prior to and following infusion and between multi ple consecutive infusions: sodium chloride 0.9 % injection sodium chloride injection 3 mL 3 mL, intravenous, Every 12 hours scheduled, First dos e on Wed11/07/17 at 2100, Peripheral Intravenous Catheter and Rapi d Infusion Catheter, when no infusion to maintain patency documented in this encounter Active and Recently Administered Medications Times are shown in CDT. Scheduled Medication Order 11/05/2017 11/06/2017 11/07/2017 ipratropium-albuterol 0.5-2.5 mg/3 mL ne bulizer solution 3 mL (for_DUO-NEB) (COMPLETED) 1851 (Given - Provid er: Cammie Schuster R.N.) 3 mL, nebulization, Once, Wed11/07/17 at 1840, For 1 dose NaCl 0.9 % bolus 93 mL 1910 (Due ) 93 mL, intravenous, Once, Wed11/07/17 at 1910, For 1 dose pantoprazole injection 40 mg (for_PROTONIX) (COMPLETED) 1852 (Given - Provider: Cammie Schuster R.N.) 40 mg, intravenous, Once, 11/07/17 at 1840, For 1 dose, Administer IV push over 2 minutes. Add 10 mL NS to 40 mg vial for a final concentration of 4 mg/mL. sodium chloride injection 3 mL 2 100 (Due) 3 mL, intravenous, Every 12 hours schedu led, First dose on Wed11/07/17 at 2100, Peripheral Intravenous Catheter and Rapid Infusion Catheter, when no infusion to maintain patency PRN Medication Order 11/05/2017 11/06/2017 11/07/2017 iohexol 350 mg iodine/mL solution 171 mL (for_OMNIPAQUE) 1912 (Due) 171 mL, intravenous, Once in imaging, co ntrast, Starting 11/07/17 at 1909, For 1 dose ondansetron (PF) injection 4 mg (for_ZOFRAN) 185 (Given - Provider: Cammie Schuster R.N.) 4 mg, intravenous, Every 20 min PRN, [place], vomiting, Starting 11/07/17 at 1839, For 2 doses sodium chloride injection 10 mL 185 (Given - Provider: Cammie Schuster R.N.) 10 mL, intravenous, As needed, line care , Starting 11/07/17 at 1837, Peripheral Intravenous Catheter and Rapid Infusion Catheter, prior to blood sampling, post blood transfusion or post blood sampling sodium chloride injection 10 mL 10 mL, intravenous, As needed, line care, Starting 11/07/17 a t 1909 sodium chloride injection 3 mL 3 mL, intravenous, As needed, line care, Starting 11/07/17 at 1837, Prior to and following infusion and between multiple consecutive infusions: sodium chloride 0.9 % injection documented in this encounter Additional Health Concerns Assessment Noted Time PHQ-9 Depression Total Score: 7 04/07/2017 9:39 AM CDT documented as of this encounter Care Teams It Consulting Manager Relationship Specialty Start Date End Date Blaire Bundy P.A.-C. PCP - General 02/04/17 04/26/19 documented as of this encounter
--- OUTSIDE RECORDS SUMMARY | 2022-06-29 09:29 | XMS_ITS | Encounter Summary ---
:1985 Author Organization [facility] Address [address] [place] [address] Care Team Providers Name Role Phone Blaire Bundy P.A.-C. Primary Care Provider Encounter Details Date Type Department Care Team Description 11/08/2017 Telemedicine Department of Gastroenterology Social History Tobacco Use [...] or relatives? How often do you attend sabianist or jain More than 4 time s per year 07/09/2020 services? Do you belong to any clubs or organizations No 04/19/2019 such as sabianist groups, unions, fraternal or athletic groups, or [...] Date/Time Associated Comments Diagnosis GASTROENTEROLOGY IMAGE Routine 11/08/2017 3:10 Re sults for this EXAM PM CDT procedure are i n the results section. documented in this encounter Results GASTROENTEROLOGY IMAGE EXAM (11/08/2017 3:10 PM CDT) Specimen (Source) Anatomical Collection Method Collection Time Re ceived Time Location / / Volume Laterality 11/08/2017 3:08 PM CDT Narrative [facility] - 11/08/2017 4:56 PM CDT This order has been created [...] documented as of this encounter Care Teams Lombardi Developer Relationship Specialty Start Date End Date Blaire Bundy, PBrittaneyABrittaney-C. PCP - General 02/04/17 04/26/19 documented as of this encounter
--- OUTSIDE RECORDS SUMMARY | 2022-06-29 09:29 | XMS_ITS | Encounter Summary ---
:1985 Author Organization [facility] Address [address] [place] [address] Care Team Providers Name Role Phone Blaire Bundy P.A.-C. 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 [address] [place] [id number] [address] [phone] Anesthesia Record Procedure Summary Procedure Name Responsible Anesthesia Start Anesthesia Stop Anesthesiologist Time Time ESOPHAGOGASTRODUODENOSCOPY Alberto Hampton APRN, 11/11/17 1634 11/11/17 1655 [employer] Events Date Time Event Comment 11/11/2017 1634 An Start Machine/Equipmen t Checked Infection Precautions Foll owed Procedure/Site Verified NPO Sta tus Verified Supine Standard ASA Mon itors Applied 1637 Turnover to Proceduralist 1653 Turnover to ANE Staff 1653 Proc Fin 1655 an stop data 1655 An End I completed my h andoff to the receiving staff during [facility] ch we 1. Identified the patient 2. Ident ified the responsible provider 3. Revi ewed the pertinent medical history 4. Discu ssed the surgical course 5. Reviewed intra-o p anesthesia management and issues during an esthesia 6. Set expectations for post-procedure period 7. Allowed opportun ity for questions and acknowledgement of understanding. 1720 Out of Room Name Total propofol 10 mg/mL infusion 268.47 mg ketamine 10 mg/mL injection 50 mg Agents No agents on file. Blood No blood administrations on file. Lines, Drains, and Airways Type Details Placement Removal (RETIRED) Incision 09/08/17; 1718; 09/08/17 1718 by 05/13/21 141 8 by Abdomen; and dermabond; Antionette Barnes R.N. [facility] DRSG RN CARE TRANSITION WND ADH NEONAT , Ryanu jonathan Automated 2X3.75 (x3); 05/13/21 Batch Job (Removed by background completion utility); 1418 [...] How often do you attend druze or mu-ism More than 4 time s [...] encounter OR Notes Anesthesia Postprocedure Evaluation - Nancy Smith M.D. - 11/11/2017 5:18 PM CDT Patient: Carol Cooley Procedure Summary Date: 11/11/17 Room / Location: [facility] 01 [facility] 14[address] / [facility] GI LAB Anesthesia Start: 1634 Anesthesia Stop: 1655 Procedure: ESOPHAGOGASTRODUODENOSCOPY (N/A ) Diagnosis: Melena (Melena [K92.1]) Surgeon: Rubio Baker M.D. Responsible Provider: Alberto Hampton APRN, CRNA Anesthesia Type: MAC ASA Status: 3 - Emergent Anesthesia Type: MAC Last vitals BP (!) 126/54 (11/11/17 1710) Temp 36.7 ??C (11/11/17 1545) Pulse (!) 125 (11/11/171714) Resp (!) 30 (11/11/171714) SpO2 94 % (11/11/171714) Anesthesia Post Evaluation 11/11/2017 5:18 PM Patient Disposition: monitored unit, expectation for recovery time deferred to receiving unit Cardiovascular status: hemodynamics (HR & BP) acceptable Respiratory status: patent airway with spontaneous effort Temperature: normothermic Oxygen requirements: nasal cannula Level of consciousness: sedated but awakens easily Pain score: pain adequately controlled and/or at baseline Post Op nausea/vomiting: none Hydration status: euvolemic Anesthesia Preprocedure Evaluation - Alberto Hampton APRN, CRNA - 11/11/2017 4:43 PM CDT Anesthesia Pre-Evaluation Emergency Exception: Emergent transfer to anesthesia care Rescue anesthesia in endo lab PROBLEM LIST Relevant Problems (+) Abuse Tobacco Smoking (+) Depression Major (+) Gastroesophageal Reflux Disease NOS (+) Hypovolemic Shock (HCC) ASSESSMENT / PLAN ANESTHESIA PLAN ASA: 3 - Emergent Anesthesia Plan: MAC Emergency exception, Consent implied due to medical emergency and inability to obtain timely consentfrom the patient or an alternative decision maker. Use of blood products discussed with who consented to blood products. documented in this encounter Plan of Treatment Scheduled Procedures Name Priority Associated Diagnoses Date/Time COLONOSCOPY Diarrhea documented as of this encounter Visit Diagnoses Not on filedocumented in this encounter Administered Medications Inactive Administered Medications - up to 3 most recent administrations Medication Order MAR Action Action Date Dose Rate Site ketamine injection (for_KETALAR) Given 11/11/2017 4:35 PM CDT 50 mg intravenous, As needed, Starting on Bryanna 11/11/17 at 1635, Anesthesia Intra-op propofol infusion (for_DIPRIVAN) New Bag 11/11/2017 4:36 100 mcg/kg/min 84.8 mL/hr intravenous, Continuous Infusion: PM CDT Per Instructions PRN, Starting on Bryanna 11/11/17 at 1636, Anesthesia Intra-op documented in this encounter Additional Health Concerns Assessment Noted Time PHQ-9 Depression Total Score: 7 04/07/2017 9:39 AM CDT documented as of this encounter Care Teams Lead Mobile Developer Relationship Specialty Start Date End Date Blaire Bundy P.A.-C. PCP - General 02/04/17 04/26/19 documented as of this encounter
--- OUTSIDE RECORDS SUMMARY | 2022-06-29 09:29 | XMS_ITS | Encounter Summary ---
:1985 Author Organization [facility] Address [address] [place] [address] Care Team Providers Name Role Phone Blaire Bundy P.A.-C. 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 [address] [address] [facility] [phone] [place] [phone] Anesthesia Record Procedure Summary Procedure Name Responsible Anesthesia Start Anesthesia Stop Anesthesiologist Time Time ENDOSCOPIC RETROGRADE Neto Monroy APRN, 11/08/17 1544 1642 CHOLANGIOPANCREATOGRAPHY BRENDA, D.N.P. Events Date Time Event Comment 11/08/2017 1521 1544 In Room 1544 An Start Machine/Equipmen t Checked Infection Precautions Foll owed Procedure/Site Verified NPO Sta tus Verified Supine Standard ASA Mon itors Applied 1552 An Induction 1553 An Intubation 1554 Turnover to Proceduralist 1559 Proc Start 1627 Proc Fin 1634 Turnover to ANE Staff 1634 Airway Removal Criteria Met 1634 Extubation/Airway Removed 1636 an stop data 1637 Out of Room 1642 An End I completed my h andoff to the receiving staff during [facility] ch we 1. Identified the patient 2. Ident ified the responsible provider 3. Revi ewed the pertinent medical history 4. Discussed the surgical course 5. Review ed intra-op anesthesia management and i ssues during anesthesia 6. Set expectati ons for post-procedure period 7. Allowe d opportunity for questions and ac knowledgement of understanding. Name Total midazolam 1 mg/mL injection 2 mg fentanyl injection 50 mcg/mL 100 mcg lidocaine 2% (mg) injection 100 mg propofol 10 mg/mL 200 mg succinylcholine 20 mg/mL injection 140 mg ondansetron 4 mg/2 mL injection 4 mg ketamine 10 mg/mL injection 50 mg dexamethasone 4 mg/mL injection 8 mg Lactated Ringers Free Drip 600 mL Agents No agents on file. Blood No blood administrations on file. Lines, Drains, and Airways Type Details Placement Removal (RETIRED) Incision 09/08/17; 1718; Abdomen; 09/08/17 1718 by 1418 by and henok; Antionette Cooper CRT, R.N. [facility] WND ADH NEONAT 2X3.75 d, Schedul ing (x3); 05/13/21 (Removed Automate d Batch Job by background completion utility); 141 (Removed by background completion utility) Peripheral IV Placement Date: 11/08/17; 11/08/17 153 by 11/08 1746 by Placement Time: 1531; Katarina Cruz, R.N. Katarina Cruz, R.N. Catheter Size: 20 G; Orientation: Left; Location: Hand; Site Prep: Chlorhexidine (Preferred); Insertion Attempts: 1; Removal Date: 11/08/17; Removal Time: 1746; Removal Reason: Per protocol ETT Placement Date: 11/08/17; 11/08/17 1553 by 11/08 1634 by Placement Time: 1553 Neto Monroy T, Froy Monroy T, (created via procedure BRENDA RIVERO, D.N.P. BRENDA RIVERO, D.N.P. documentation); Mask Ventilation: Easy mask; Type: Standard ETT; Single Lumen Tube Size: 7 mm; Cuffed: Yes; Location: Oral; Removal Date: 11/08/17; Removal Time: 163 documented in this encounter Social History Tobacco [...] How often do you attend buddhism or yarsanism More than 4 time s [...] encounter OR Notes Anesthesia Postprocedure Evaluation - Neto Monroy APRN, CRNA, D.N.P. 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 Responsible Provider: Neto Monroy APRN, BRENDA, D.N.P. Anesthesia Type: general ASA Status: 3 - Emergent Anesthesia Type: general Last vitals BP 155/86 (11/08/17 1645) Temp 36.2 ??C (11/08/17 1523) Pulse 71 (11/08/17 1645) Resp 16 (11/08/17 1641) SpO2 98 % (11/08/17 1645) Anesthesia Post Evaluation 11/08/2017 4:46 PM Patient Disposition: dismissal Cardiovascular status: hemodynamics (HR & BP) acceptable Respiratory status: patent airway with spontaneous effort Temperature: normothermic Oxygen requirements: room air Level of consciousness: awake Pain score: pain adequately controlled and/or at baseline Post Op nausea/vomiting: none Hydration status: euvolemic Anesthesia Procedure Notes - Neto Monroy APRN, CRNA, D.N.P. - 11/08/2017 4:01 PM CDTAssociated Order(s): ANESTHESIA INTUBATION Airway Date/Time: 11/08/2017 3:53 PM Patient location during procedure: OR / Procedure Area Performed by: Neto Monroy Authorized by: Neto Monroy Pre procedure details Pre evaluation for airway management: procedure Urgency: elective Preop assessment of probable difficulty: questionable / suspicious difficult airway Sedation level: anesthetized Preoxygenation: bag valve mask Procedure details Mask difficulty assessment: easy mask Final airway type: video laryngoscope Laryngeal Manipulation: [...] event: no complications Anesthesia Preprocedure Evaluation - eNto Monroy APRN, CRNA, D.N.P. - 11/08/2017 12:46 PM CDT Anesthesia Pre-Evaluation Review of Systems and Problem List PROBLEM LIST Relevant Problems (+) Abuse Tobacco Smoking (+) Depression Major (+) Gastroesophageal Reflux Disease NOS OBJECTIVE PHYSICAL EXAMINATION Airway (HEENT) Mallampati: I TM Distance: <3 FB Neck ROM: Full Cardiovascular Rhythm: Regular Rate: Normal Cardiovascular Assessment: Normal Pulmonary Pulmonary Assessment: Clear Neurological Normal Dental Normal General / Constitutional Normal ASSESSMENT / PLAN ANESTHESIA PLAN ASA: 3 - Emergent Anesthesia Plan: general Patient seen and allergies reviewed; anesthesia plan and risks discussed directly with patient / legal guardian, or through an machine ii coremaker; patient evaluated and approved for anesthesia / sedation. The use of blood products not discussed Discussed risk of potential decreased hormonal contraceptive efficacy for up to one week after anesthesia due to medication interactions. documented in this encounter Plan of Treatment Scheduled Procedures Name Priority Associated Diagnoses Date/Time COLONOSCOPY Diarrhea documented as of this encounter Procedures Procedure Name Priority Date/Time Associated Comments Diagnosis LDA ANE ENDOTRACHEAL Routine 11/08/2017 4:01 PM R esults for this AIRWAY CDT procedure are i n the results section. documented in this encounter Results LDA ANE ENDOTRACHEAL AIRWAY (11/08/2017 4:01 PM CDT) Narrative Neto Monroy APRN, CRNA, D.N.P. - 4:01 PM CDT Neto Monroy APRN, CRNA, D.N.P. ? 11/08/2017 ??4:02 PM Airway Date/Time: 11/08/2017 3:53 PM Patient location during procedure: OR / Procedure Area Performed by: Neto Monroy Authorized by: Neto Monroy Pre procedure details ?? Pre evaluation for airway management : procedure ?? Urgency: elective ?? Preop assessment of probable difficu lty: questionable / suspicious difficult airway ?? Sedation level: anesthetized ?? Preoxygenation: bag valve mask Procedure details ??Mask difficulty assessment: easy mask ?? Final airway type: video laryngoscop e Laryngeal Manipulation: no ? Final best view of glottic structure s - Cormack/Lehane Score: grade 1 ?? ETT location: oral ?? VL device: storz CMAC ?? Storz CMAC blade size: D - adult ?? Adult tube size: 7 ?? Adult ETT distance at teeth/gum: 21 ?? Oral tube type: standard ETT ?? Cuffed: yes ?? Number of attempt to successful plac ement: 1 ?? Airway confirmation: bilateral breat h sounds, positive ETCO2 and bilateral chest rise ?? Other previous techniques attempted: none Post procedure details ?? Procedure outcome: successful ? Airway event: no complications Procedure Note Neto Monroy APRN, CRNA, D.N.P. - 4:01 PM CDT Airway Date/Time: 11/08/2017 3:53 PM Patient location during procedure: OR / Procedure Area Performed by: Neto Monroy Authorized by: Neto Monroy Pre procedure details Pre evaluation for airway management: p rocedure Urgency: elective Preop assessment of probable difficulty : questionable / suspicious difficult airway Sedation level: anesthetized Preoxygenation: bag valve mask Procedure details Mask difficulty assessment: easy mask Final airway type: video laryngoscope Laryngeal Manipulation: no Final best view of glottic structures - Cormack/Lehane Score: grade 1 ETT location: oral VL device: storLifePay CMAC Storz CMAC blade size: D - adult Adult tube size: 7 Adult ETT distance at teeth/gum: 21 Oral tube type: standard ETT Cuffed: yes Number of attempt to successful placeme nt: 1 Airway confirmation: bilateral breath s ounds, positive ETCO2 and bilateral chest rise Other previous techniques attempted: no ne Post procedure details Procedure outcome: successful Airway event: no complications Neto Monroy APRN, CRNA, D.N.P. ANESTHESIA ORDERABLE S documented in this encounter Visit Diagnoses Not on filedocumented in this encounter Administered Medications Inactive Administered Medications - up to 3 most recent administrations Medication Order MAR Action Action Date Dose Rate Site dexamethasone injection Given 11/08/2017 3:52 PM CDT 8 mg (for_DECADRON) As needed, Starting on Wed11/08/17 at 1552, Anesthesia Intra-op fentaNYL injection (for_SUBLIMAZE) Given 11/08/2017 3:46 PM CDT 100 mcg intravenous, As needed, severe pain or score 7-10 of 10, Starting on Wed11/08/17 at 1546, Anesthesia Intra-op ketamine injection (for_KETALAR) Given 11/08/2017 3:52 PM CDT 50 mg As needed, Starting on Wed11/08/17 at 1552, Anesthesia Intra-op lactated ringers New Bag 11/08/2017 3:44 PM CDT intravenous, Continuous Infusion: Per Instructions PRN, Starting on Wed11/08/17 at 1544, Anesthesia Intra-op lidocaine (PF) (cardiac) injection Given 11/08/2017 3:52 PM CDT 100 mg intravenous, As needed, Starting on Wed11/08/17 at 1552, Anesthesia Intra-op midazolam (PF) injection (for_VERSED) Given 11/08/2017 3:46 PM CDT 2 mg intravenous, As needed, Starting on Wed11/08/17 at 1546, Anesthesia Intra-op ondansetron (PF) injection (for_ZOFRAN) Given 11/08/2017 3:52 PM CDT 4 mg intravenous, As needed, nausea, vomiting, Starting on Wed11/08/17 at 1552, Anesthesia Intra-op propofol injection (for_DIPRIVAN) Given 11/08/2017 3:52 PM CDT 200 mg intravenous, As needed, Starting on Wed11/08/17 at 1552, Anesthesia Intra-op succinylcholine-0.9% NaCl (PF) injection Given 11/08/2017 3:52 P M CDT 140 mg (for_ANECTINE) intravenous, As needed, Starting on Wed11/08/17 at 1552, Anesthesia Intra-op documented in this encounter Additional Health Concerns Assessment Noted Time PHQ-9 Depression Total Score: 7 04/07/2017 9:39 AM CDT documented as of this encounter Care Teams Locker Attendant Relationship Specialty Start Date End Date Blaire Bundy P.A.-C. PCP - General 02/04/17 04/26/19 documented as of this encounter
--- OUTSIDE RECORDS SUMMARY | 2022-06-29 09:29 | XMS_ITS | Encounter Summary ---
:1985 Author Organization [facility] Address [address] [place] [address] Care Team Providers Name Role Phone Blaire Bundy P.A.-C. Primary Care Provider [phone] Reason for Referral Outpatient (Routine) - Closed Specialty Diagnoses / Procedures Referred By Contact Refer red To Contact General Surgery Diagnoses Calculus Of Bile Duct Without Cholangitis Or Cholecystitis With Obstruction PAR REVIEW Rubio Baker [facility] [place] [facility] Procedures [place] [address] [id number] Referral ID Status Reason Start Date Expiration Date Visits V isits Requested Authorized [id number] Closed Specialty 11/08/2017 05/07/2018 1 1 Services Required Reason for Visit Auth/Cert Specialty Diagnoses / Procedures Referred By Contact Refer red To Contact Diagnoses Calculus Of Bile Duct Without Cholangitis Or Cholecystitis With Obstruction K80.51 Procedures UT ERCP W BX ENDOSCOPIC RETROGRADE CHOLANGIOPANCREATOGRAPHY Referral ID Status Reason Start Date Expiration Date Visits Requ ested Visits Authorized 1 1 Encounter Details Date Type Department Care Team Description 11/08/2017 Hospital Encounter [facility] Rubio Das Calculus Of Bile Duct [address] Marcos M.D. Without Cholangitis [place] RIVERA [address] [place] [phone] [place] Rivera Obstruction [phone] Social History Tobacco Use Types Packs/Day [...] How often do you attend muslim or buddhist More than 4 time s [...] Sign Reading Time Taken Comments Blood Pressure 153/80 11/08/2017 5:15 PM CDT Pulse 75 11/08/2017 5:30 PM CDT Temperature 36.2 ??C (97.2 ??F) 11/08/2017 3:23 PM CDT Respiratory Rate 16 11/08/2017 4:41 PM CDT Oxygen Saturation 96% 11/08/2017 5:30 PM CDT Inhaled Oxygen Concentration - - Weight 141 kg (309 lb 15.5 oz) 11/08/2017 3:23 PM CDT Height 160 cm (5' 3) 11/08/2017 3:23 PM CDT Body Mass Index 54.91 11/08/2017 3:23 PM CDT documented in this encounter Discharge Instructions AttachmentsThe following attachments cannot be sent through Care Everywhere. About Your ERCP, (Endoscopic Retrograde Cholangiopancreatography) (Hungarian) documented in this encounter Medications at Time [...] from [facility] documented as of this encounter H&P Notes Rubio Baker M.D. - 11/08/2017 9:43 AM CDT CHIEF COMPLAINT / REASON FOR VISIT Epigastric pain and jaundiced HISTORY OF PRESENT ILLNESS Carol Cooley is a pleasant 31 y.o. female who presents with 5 days of epigastric/lower chest pain, nausea without vomiting, jaundice and austin-colored stools. I was notified of her condition last night by Dr. Car and seeing her at her ultrasound this morning. She was noted to have elevated LFT's in the ER on 11/04. She was set up for an ultrasound this week, but continued to have difficult withpain and nausea, presenting back to the ER last night. No fevers or chills. She noted darkening urine and austin-colored stools the last few days. She has not had this before, but she states that she would frequently get heartburn with similar pains. However, none of her heartburn medication worked for this like it usually does. PAST MEDICAL HISTORY Patient Active Problem List Diagnosis ??? Body Mass Index 50.0 To 59.9 Adult (HCC) ??? Abuse Tobacco Smoking ??? Migraine Headache ??? Depression Major ??? Attention Deficit With Hyperactivity Disorder ??? Apnea Sleep Obstructive ??? Gastroesophageal Reflux Disease NOS ??? Calculus Of Bile Duct Without Cholangitis Or Cholecystitis With Obstruction Past Medical History: Diagnosis Date ??? Sleep Apnea Past Surgical History: Procedure Laterality Date ??? LAPAROSCOPIC APPENDECTOMY N/A 09/08/2017 Procedure: LAPAROSCOPIC APPENDECTOMY; Surgeon: Edd Moeller D.O.; Location: [facility] OR ??? OTHER CONVERTED SHX (SEE COMMENT) N/A 06/24/2017 >1. Normal spontaneous vaginal delivery. 2. Second-degree midline laceration and repair. MEDICATIONS Current Facility-Administered Medications on File Prior to Encounter Medication ??? [COMPLETED] ipratropium-albuterol 0.5-2.5 mg/3 mL nebulizer solution 3 mL (for_DUO-NEB) ??? [COMPLETED] pantoprazole injection 40 mg (for_PROTONIX) ??? [DISCONTINUED] iohexol 350 mg iodine/mL solution 171 mL (for_OMNIPAQUE) ??? [DISCONTINUED] NaCl 0.9 % bolus 93 mL ??? [DISCONTINUED] ondansetron (PF) injection 4 mg (for_ZOFRAN) ??? [DISCONTINUED] sodium chloride injection 10 mL ??? [DISCONTINUED] sodium chloride injection 10 mL ??? [DISCONTINUED] sodium chloride injection 3 mL ??? [DISCONTINUED] sodium chloride injection 3 mL Current Outpatient Prescriptions on File Prior to Encounter Medication Sig ??? acetaminophen (for_TYLENOL) 500 mg tablet Take 1-2 tablets by mouth every 6 (six) hours as needed. ??? HYDROcodone-acetaminophen (for_NORCO) 5-325 mg per tablet Take 1 tablet by mouth every 6 (six) hours as needed for pain. ??? ibuprofen (for_ADVIL,MOTRIN) 200 mg tablet Take 200 mg by mouth as needed. ??? methylPREDNISolone (for_MEDROL DOSEPACK) 4 mg tablet follow package directions. ??? ondansetron ODT (for_ZOFRAN-ODT) 4 mg disintegrating tablet Take 1 tablet (4 mg total) by mouth 3 (three) times a day as needed for nausea or vomiting for up to 3 days. Given from [facility] ALL[facility] Allergies Allergen Reactions ??? Penicillins Other (see comments) Does not recall reaction- reports reaction during childhood. SOCIAL HISTORY Social History Substance Use Topics ??? Smoking status: Former Smoker ??? Smokeless tobacco: Never Used ??? Alcohol use No Lives in [place], working at the [employer] there. Has two sons, the youngest 4 months old. FAMILY HISTORY Family History Problem Relation Age of Onset ??? Cancer Grandmother ear ??? Cystic fibrosis Sister ??? Cancer Grandfather larynx ??? Lung cancer Grandmother brain cancer ??? Heart attack Father 47 ??? Hypothyroidism Mother REVIEW OF SYSTEMS Gen: Poor appetite Ms: Always has leg swelling. Complete 14-point systems review otherwise negative. OBJECTIVE BP 113/62 (BP Location: Right arm;Upper) Pulse 61 Temp 36.2 ??C (Temporal) Resp 16 Ht 160 cm Wt (!) 140.6 kg LMP 07/11/2017 SpO2 96% ? No Comment: Pt states needs to get injection, but has had no sex, no chance of BMI 54.91 kg/m?? PHYSICAL EXAM Gen: Obese, very pleasant female in NAD Eyes: Mild icterus. Pupils equal and round ENT: Oropharynx clear. Normal dentition. Mallampati class II. Neck: Supple without masses, lymphadenopathy or thyromegaly. Respiratory: Clear to auscultation bilaterally. Normal equal chest rise with inspiration bilaterally CV: RRR without murmur; No abdominal bruits; 1+ pedal pulses Abd: Normal bowel sounds. Soft. Mild epigastric/RUQ tenderness. No distension. No hepatosplenomegaly. No hernias. Well healed lap appy scars. Extrem: No edema Skin: No jaundice, spiders or rashes. Warm and dry. Psych: Alert and oriented x 3 Neuro: No asterixis. MS: Normal gait; No joint swelling in arms or leg joints with full range of motion. LABS Recent Results (from the past 24 hour(s)) CBC with Differential Collection Time: 11/07/17 6:48 PM Result Value Hemoglobin 13.5 Hematocrit 42.1 Erythrocytes 4.97 MCV 84.7 RBC Distrib Width 14.9 Platelet Count 294 Leukocytes 7.6 Neutrophils 5.64 Lymphocytes 1.33 Monocytes 0.50 Eosinophils 0.04 Basophils 0.04 Lipase Collection Time: 11/07/17 6:48 PM Result Value Lipase, P 45 BMP (Basic Metabolic Panel) Collection Time: 11/07/17 6:48 PM Result Value Potassium, Plasma 4.3 Sodium, P 139 Chloride, P 100 Bicarbonate, P 25 Anion Gap, P 14 BUN, P 16 Creatinine, P 0.76 eGFR Black, P >90 eGFR Non-Black, P >90 Calcium, Total, P 9.5 Glucose, P 129 Hepatic Function Panel Collection Time: 11/07/17 6:48 PM Result Value Bilirubin Total, S 2.0 (H) Bilirubin, Direct, S 1.5 (H) Aspartate Aminotransferase (AST), S 775 (H) Alanine Aminotransferase (ALT), S 1877 (H) Alkaline Phosphatase, S 275 (H) Albumin, S 4.0 Protein, Total, S 7.1 Lactate Collection Time: 11/07/17 6:48 PM Result Value Lactate, P 0.8 hCG (Human Chorionic Gonadotropin), Quantitative, Collection Time: 11/07/17 6:48 PM Result Value HCG, Quantitative, , S <0.5 DIAGNOSTICS U/S this morning shows cholelithiasis with CBD at 9.6 mm. IMPRESSION/REPORT / PLAN Choledocholithiasis with obstruction. No evidence of cholecystitis. Her transaminases are impressively high, but given her clinical symptoms, ultrasound and CT scan findings, and without obvious causesfor other hepatitis (like viral, ischemic, and far too removed from her for HELLP or fatty liver), it seems the cause is biliary obstruction. Discussed with patient about ERCP this morning ather ultrasound, explaining the details including risks and benefits. She agrees will have clear liquids, go home from her U/S, and we will call her for emergent ERCP this afternoon. ASA II E. ERCP willbe complicated by her morbid obesity and sleep apnea, but otherwise she is in reasonable health. documented in this encounter Procedure Notes Rubio Baker M.D. - 11/08/2017 3:08 PM CDTAssociated Order(s): ERCP [facility] Patient Name: Carol Cooley Procedure Date: 11/08/2017 3:08 PM Date of : 1985 Age: 31 Gender: Female Procedure: ERCP Providers: Rubio Harris (Ordering Provider) Referring Provider: Rubio Baker Pre-op Diagnoses: Common bile duct stone(s), Jaundice, Elevated aspartate transaminase (AST), Elevated alanine transaminase (ALT), Elevated alkaline phosphatase Post-op Diagnoses: - Choledocholithiasis without cholecystitis and with an obstruction was found. Complete removal was accomplished by biliary sphincterotomy and balloon extraction. Recommendation: - Clear liquid diet tonight. May advance diet tomorrow as tolerated. - May discharge if meets criteria. Findings: The scope was passed through the upper GI tract without discovering UGI findings. The major papilla was bulging. The bile duct was deeply cannulated with the short-nosed traction sphincterotome and guidewire. The 0.035 mm Jagwire was advanced up the bile duct. Contrast was injected. I personally interpreted the bile duct images. There was brisk flow of contrast through the ducts. Image quality was excellent. Contrast extended to the main bile duct. The main bile duct contained no evident stones, but was mildly dilated. A 12 mm biliary sphincterotomy was made with a braided short-tip traction sphincterotome using blended current. Half way through the sphincterotomy there was an explosion of dark bile that poured out, presumably releasing a stone or blockage, although this was not specifically seen. There was no post-sphincterotomy bleeding. The biliary tree was swept with a 15 mm balloon starting at the bifurcation. Several tiny 1-2 mm stones were removed. No stones remained confirmed by balloon cholangiogram. The endoscope was withdrawn from the patient. Medicines: General anesthesia, benzocaine spray and indomethacin 100 mg UT Complications: No immediate complications. Estimated blood loss: [...] and oxygen saturations were monitored continuously. The Duodenoscope was introduced under direct vision through the mouth, and advanced to the duodenum and used to inject contrast into the bile duct. The ERCP was accomplished without difficulty. The patient tolerated the procedure well. Sedation: Anesthesia was administered by an anesthesia professional. The following parameters were monitored: oxygen saturation, heart rate, blood pressure, respiratory rate, EKG, adequacy of pulmonary ventilation, and response to care. Rubio Baker, 11/08/2017 4:45:09 PM This report has been signed electronically. Number of Addenda: 0 Note Initiated On: 11/08/2017 3:08 PM documented in this encounter OR Notes Brief Op Note - Rubio Baker M.D. - 11/08/2017 3:59 PM CDT BRIEF OP NOTE Procedure(s): ENDOSCOPIC RETROGRADE CHOLANGIOPANCREATOGRAPHY Surgeon(s) and Role: * Rubio Baker M.D. - Primary Anesthesia Type: General Pre-Operative Diagnosis: Calculus Of Bile Duct Without Cholangitis Or Cholecystitis With Obstruction [K80.51] Brief Operative Note Details Specimens ID Type Source Tests Collected by Time 1 : Perianal for CRE Swab Perianal [facility] SURVEILLANCE PCR Rubio Baker M.D. 11/08/2017 1539 Drains None Estimated Blood Loss No blood loss documented. Implants * No implants in log * Rubio Baker M.D. documented in this encounter Plan of Treatment Scheduled Procedures Name Priority Associated Diagnoses Date/Time COLONOSCOPY Diarrhea Scheduled Referrals Name Type Priority Associated Diagnoses Order [facility] General Surgery - Outpatient Referral Routine Calculus Of Bile Duct Expected: General consult Without Cholangitis Or (clinic) Cholecystitis With (Approxim ate), Obstruction Expires: 11/08/2020 documented as of this encounter Procedures Procedure Name Priority Date/Time Associated Comments Diagnosis FL FLUORO LESS THAN 1 HOUR RAD - Routine 11/08/2017 Results for (most 4:36 PM CDT this inpatients and procedure are all in the outpatients) results section. ENDOSCOPIC RETROGRADE 11/08/2017 Calculus Of Bile CHOLANGIOPANCREATOGRAPHY 3:44 PM CDT Duct Without Cholangitis Or Cholecystitis With Obstruction [facility] SURVEILLANCE PCR Routine 11/08/2017 Calculus Of Bile Results for 3:39 PM CDT Duct Without this Cholangitis Or procedure are Cholecystitis in the With Obstruction results section. ERCP 11/08/2017 Results for 3:08 PM CDT this procedure are in the results section. documented in this encounter Results FL Fluoro Less Than 1 Hour (11/08/2017 4:36 PM CDT) Anatomical Region Laterality Modality X-Ray Angiography Specimen (Source) Anatomical Collection Method Collection Time Re ceived Time Location / / Volume Laterality 11/08/2017 4:58 PM CDT Impressions 11/08/2017 4:58 PM CDT IMPRESSION: Fluoroscopic guidance used intra-operatively. Fluoroscopic imaging obtained during endoscopic retrograde ch olangiopancreatography. Total fluoroscopy time 1.4 minutes. Narrative 11/08/2017 4:58 PM CDT EXAM: FL FLUORO LESS THAN 1 HOUR COMPARISON: None Procedure Note Morgan Mcclure M.D. - 11/08/2017Formatt ing of this note might be different from the original. EXAM: FL FLUORO LESS THAN 1 HOUR COMPARISON: None IMPRESSION: Fluoroscopic guidance used i ntra-operatively. Fluoroscopic imaging obtained during endoscopic retrograde ch olangiopancreatography. Total fluoroscopy time 1.4 minutes. Rubio Baker M.D. IMG FLUOROSCOPY PROCEDURES [facility] and [facility] Surveillance PCR Perianal (11/08/2017 3:39 PM CDT) [facility] gist Method Time Signature Specimen RECTAL SWAB 11/09/2017 [facility] source 1:40 PM CDT [facility] - [facility] KPC PCR Negative Not 11/09/2017 [facility] Applicable 1:40 PM CDT [facility] - [facility] NDM PCR Negative Not 11/09/2017 [facility] Applicable 1:40 PM CDT [facility]ATOR[facility] - [facility] Comment: ----ADDITIONAL INFORMATION---- This test was developed and its performa nce characteristics determined by [facility] in a manner consistent with CLIA requirements. This test has not been cleared or approved by the [place] d and Drug Administration. Specimen (Source) Anatomical Collection Method Collection Time Re ceived Time Location / / Volume Laterality Swab (Perianal) 11/08/2017 3:39 PM CDT Rubio Baker M.D. LAB MICROBIOLOGY - GENERAL O RDERABLES Performing Organization Address City/State/ZIP Code Phon e Number [facility] [address] [place], [place] [address] [facility] ERCP (11/08/2017 3:08 PM CDT) Specimen (Source) Anatomical Location Collection Method / Collectio n Time Received Time / Laterality Volume Narrative This result has an attachment that is no t available. Procedure Note Rubio Baker M.D. - 11/08/2017 3:0 8 PM CDT [facility] Patient Name: Carol Cooley Procedure Date: 11/08/2017 3:08 PM Date of : 1985 Age: 31 Gender: Female Procedure: ERCP Providers: Rubio Harris (Ordering Provider) Referring Provider: Rubio Baker Pre-op Diagnoses: Common bile duct stone (s), Jaundice, Elevated aspartate transaminase (AST), Elevated alanine transaminase (ALT), Elevated alkaline p hosphatase Post-op Diagnoses: - Choledocholithiasis without cholecyst itis and with an obstruction was found. Complete removal was accomplishe d by biliary sphincterotomy and balloon extraction. Recommendation: - Clear liquid diet tonight. May advanc e diet tomorrow as tolerated. - December discharge if meets criteria. Findings: The scope was passed through the upper GI tract without discovering UGI findings. The major papilla was bulging . The bile duct was deeply cannulated with the short-nosed tractio n sphincterotome and guidewire. The 0.035 mm Jagwire was advanced up th e bile duct. Contrast was injected. I personally interpreted the bile duct images. There was brisk flow of contrast through the ducts. Eloina ge quality was excellent. Contrast extended to the main bile duct . The main bile duct contained no evident stones, but was mildly dilated. A 12 mm biliary sphincterotomy was made with a braided short-tip tract ion sphincterotome using blended current. Half way through the sphincter otomy there was an explosion of dark bile that poured out, presumably r eleasing a stone or blockage, although this was not specifically seen . There was no post-sphincterotomy bleeding. The bilia ry tree was swept with a 15 mm balloon starting at the bifurcation. Se veral tiny 1-2 mm stones were removed. No stones remained confirmed b y balloon cholangiogram. The endoscope was withdrawn from the patien t. Medicines: General anesthesia, benzocaine spray an d indomethacin 100 mg UT Complications: No immediate complication s. Estimated blood [...] ygen saturations were monitored continuously . The Duodenoscope was introduced under d irect vision through the mouth, and advanced to the duodenum and used to inject contrast into the bile d uct. The ERCP was accomplished without difficulty. Th e patient tolerated the procedure well. Sedation: Anesthesia was administered by an anest hesia professional. The following parameters were monitored: oxygen satur ation, heart rate, blood pressure, respiratory rate, EKG, adequa cy of pulmonary ventilation, and response to care. Rubio Baker, 11/08/2017 4:45:09 PM This report has been signed electronical ly. Number of Addenda: 0 Note Initiated On: 11/08/2017 3:08 PM Rubio Baker M.D. GI PROCEDURE ORDERABLES documented in this encounter Visit Diagnoses Diagnosis 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 - Primary 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 documented in this encounter Admitting Diagnoses Diagnosis 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 documented in this encounter Administered Medications Inactive Administered Medications - up to 3 most recent administrations Medication Order MAR Action Action Date Dose Rate Site lactated ringers New Bag 11/08/2017 3:32 PM CDT 200 mL/hr 200 mL/hr 200 mL/hr, intravenous, Continuous, Starting on Wed11/08/17 at 1500, Pre-Op sodium chloride injection 10 mL 10 mL, intravenous, Every 8 hours scheduled (RT), Firs t dose on Wed11/08/17 at 1500, Pre-Op, Peripheral Intravenous Cat heter and Rapid Infusion Catheter, prior to blood sampling, post blood transfusion or post blood s ampling sodium chloride injection 3 mL 3 mL, intravenous, As needed, line care, Starting on Wed11/08/17 at 1456, Pre-Op, Prior to and following infusion and betw een multiple consecutive infusions: sodium chloride 0.9 % injection sodium chloride injection 3 mL 3 mL, intravenous, Every 12 hours scheduled, First dos e on Wed11/08/17 at 2100, Pre-Op, Peripheral Intravenous Catheter and Rapid Infu clemencia Catheter, when no infusion to maintain patency documented in this encounter Active and Recently Administered Medications Times are shown in CDT. Scheduled Medication Order 11/06/2017 11/07/2017 11/08/2017 indomethacin suppository 100 mg (for_INDOCIN) 1500 (Due) 100 mg, rectal, Once, Wed11/08/17 at 150 0, For 1 dose, To be given in OR during ERCP. lidocaine 10 mg/mL (1 %) injection 1 mL (for_XYLOCAINE) 1500 (Due) 1 mL, infiltration, Once, Wed11/08/17 at 1500, For 1 dose, Pre-Op, May admin up to 1 mL at the site of IV site if not allergic to lidocaine lidocaine 2 % mucosal solution 1 mL (for_XYLOCAINE) 1500 (Due) 1 mL, mouth/throat, Once, Wed11/08/17 at 1500, For 1 dose, Pre-Op, Indications: Administration of Local Anesthesia sodium chloride injection 10 mL 1500 (Due) 10 mL, intravenous, Every 8 hours schedu led (RT), First dose on Wed11/08/17 at 1500, Pre-Op, Peripheral Intravenous Catheter and Rapid Infusion Catheter, prior to blood sampling, post blood transfusion or post blood sampling sodium chloride injection 3 mL 3 mL, intravenous, Every 12 hours schedu led, First dose on Wed11/08/17 at 2100, Pre-Op, Peripheral Intravenous Catheter and Rapid Infusion Catheter, when no infusion to maintain patency Continuous Medication Order 11/06/2017 11/07/2017 11/08/2017 lactated ringers 1532 (New Bag - Provider: Ruben BarronNBrittaney) 200 mL/hr, intravenous, at 200 mL/hr, Co ntinuous, Starting Wed11/08/17 at 1500, Pre-Op lactated ringers 1700 (Due) 100 mL/hr, intravenous, at 100 mL/hr, Continuous, Starting M 11/08/17 at 1700 PRN Medication Order 11/06/2017 11/07/2017 11/08/2017 benzocaine 20 % mouth spray (for_HURRICAINE/TOPEX) (CANCELED) 3690 (Given - Provider: Rubio D Olivia, M.D.) As needed, Starting 11/08/17 at 1535, Intra-Op dexamethasone injection 4 mg (for_DECADRON) 4 mg, intravenous, Once as needed, nause a, vomiting, Starting 11/08/17 at 1646, For 1 dose, PACU (only), Give only if NOT given during the pre or intraoperative period. If ondansetron ordered, give dexamethasone with first dose of ondansetron. droperidol injection 0.625 mg (for_INAPSINE) 0.625 mg, intravenous, Every 6 hours PRN , nausea, vomiting, Starting 11/08/17 at 1646, For 48 hours, PACU (only), Total of 3 doses in 24 hour period. RASS must be -2 or higher to administer. Reassess for nausea or vomiting after at least 1 0 minutes. If nausea or vomiting persists administer next ordered antiemetic medications (order for antiemetic medication administration ondansetron then droperidol then promethazine). fentaNYL injection 25 mcg (for_SUBLIMAZE) 25 mcg, intravenous, Every 2 min PRN, Fo r pain 4 or greater (maximum 100 mcg). If max dose of Fentanyl is reached and if pain is greater than 4, discontinue Fentanyl: give Hydromorphone, Starting 11/08/17 at 1646, PACU (only) HYDROmorphone injection 0.5 mg (for_DILAUDID) 0.5 mg, intravenous, Every 5 min PRN, mo derate pain or score 4-6 of 10, severe pain or score 7-10 of 10, Starting 11/08/17 at 1646, PACU (only), Up to maximum total dose of 2 mg indomethacin suppository (for_INDOCIN) (CANCELED) 1602 (Given - Provider: Vidhi Sorensen R.N.) As needed, Starting 11/08/17 at 1602, Intra-Op ioversol 240 mg iodine/mL 50 mL in NaCl 0.9% 100 mL intravenous solution (CANCELED) 1604 (Given - Provid er: Rubio Baker M.D. - Comment: irrigated in common bile duct - not IV) As needed, Starting 11/08/17 at 1604, Intra-Op ondansetron (PF) injection 4 mg (for_ZOFRAN) 4 mg, intravenous, Every 6 hours PRN, na usea, vomiting, Starting 11/08/17 at 1646, For 48 hours, PACU (only), Reassess for nausea or vomiting after at least 10 minutes. If nausea or vomiting persists administer next ordered antiemetic medi cations (order for antiemetic medication administration ondansetron then droperidol then promethazine). promethazine injection 6.25 mg (for_PHENERGAN) 6.25 mg, intravenous, Every 6 hours PRN, nausea, vomiting, Starting 11/08/17 at 1646, For 48 hours, PACU (only), RASS must be -2 or higher to administer. Reassess for nausea/vomiting after at least 1 0 minutes. If nausea or vomiting persist s administer next ordered antiemetic medications (order for antiemetic medication administration ondansetron then droperidol then promethazine). If given IV push: Administer no more than 12.5 mg over 2 minutes. sodium chloride injection 3 mL 3 mL, intravenous, As needed, line care, Starting 11/08/17 at 1456, Pre-Op, Prior to and following infusion and between multiple consecutive infusions: sodium chloride 0.9 % injection documented in this encounter Additional Health Concerns Assessment Noted Time PHQ-9 Depression Total Score: 7 04/07/2017 9:39 AM CDT documented as of this encounter Care Teams Director Of Brand Marketing Relationship Specialty Start Date End Date Blaire Bundy P.A.-C. PCP - General 02/04/17 04/26/19 documented as of this encounter
--- OUTSIDE RECORDS SUMMARY | 2022-06-29 09:29 | XMS_ITS | Encounter Summary ---
:1985 Author Organization [facility] Address [address] [place] [address] Care Team Providers Name Role Phone Blaire Bundy P.A.-C. 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 Tenderness [address] [phone] Social History Tobacco Use Types Packs/Day Years [...] How often do you attend hoahaoism or anabaptist More than 4 time s per year [...] from [employer] documented as of this encounter Plan of Treatment Scheduled Procedures Name Priority Associated Diagnoses Date/Time COLONOSCOPY Diarrhea documented as of this encounter Procedures Procedure Name Priority Date/Time Associated Comments Diagnosis US ABDOMEN RAD - Routine 11/08/2017 9:45 Dilated Common Results f or this COMPLETE (most inpatients AM CDT Bile Duct procedure are in and all Tenderness the results outpatients) Epigastric section. documented in this encounter Results US [...] fatty infiltration of the soraida er. D[facility] US PROCEDURES documented in this encounter Visit Diagnoses Diagnosis Dilated Common Bile Duct Tenderness Epigastric documented in this encounter Additional Health Concerns Assessment Noted Time PHQ-9 Depression Total Score: 7 04/07/2017 9:39 AM CDT documented as of this encounter Care Teams Senior Erp Consultant Relationship Specialty Start Date End Date Blaire Bundy P.A.-C. PCP - General 02/04/17 04/26/19 documented as of this encounter
--- OUTSIDE RECORDS SUMMARY | 2022-06-29 09:29 | XMS_ITS | Encounter Summary ---
:1985 Author Organization [facility] Address [address] [place] [address] Care Team Providers Name Role Phone Blaire Bundy P.A.-C. Primary Care Provider [phone] Encounter Details Date Type Department Care Team Description 11/08/2017 Orders Only Department of Rubio Baker Calculus Of Bile Duct Gastroenterology in Marko Marcos M.D. Without Cholangitis [place], [place] [address] Or Cholecystitis With [address] [place], [place]struction ([place] [phone] Dx) [phone] Social History Tobacco Use Types Packs/Day Years [...] often do you attend oriental orthodox or evangelical More than 4 time s [...] to pay for the very basics like [employer] hat hard 07/09/2020 food, housing, medical care, [...] documented as of this encounter Care Teams Undercollar Maker Relationship Specialty Start Date End Date Blaire Bundy P.A.-C. PCP - General 02/04/17 04/26/19 documented as of this encounter
--- OUTSIDE RECORDS SUMMARY | 2022-06-29 09:29 | XMS_ITS | Encounter Summary ---
:1985 Author Organization [facility] Address [address] [place] [address] Care Team Providers Name Role Phone Blaire Bundy P.A.-C. 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 CHOLANGIOPANCREATOGRAPHY [place], [place] [address] [address] [place], [place] [phone] Social History Tobacco Use Types Packs/Day [...] How often do you attend restorationism or scientology More than 4 time s [...] Sign Reading Time Taken Comments Blood Pressure 113/62 11/08/2017 3:23 PM CDT Pulse 61 11/08/2017 3:23 PM CDT Temperature 36.2 ??C (97.2 ??F) 11/08/2017 3:23 PM CDT Respiratory Rate 16 11/08/2017 3:23 PM CDT Oxygen Saturation 96% 11/08/2017 3:23 PM CDT Inhaled Oxygen Concentration - - Weight 141 kg (309 lb 15.5 oz) 11/08/2017 3:23 PM CDT Height 160 cm (5' 3) 11/08/2017 3:23 PM CDT Body Mass Index 54.91 11/08/2017 3:23 PM CDT documented in this encounter Discharge Instructions AttachmentsThe following attachments cannot be sent through Care Everywhere. About Your ERCP, (Endoscopic Retrograde Cholangiopancreatography) (Icelandic) documented in this encounter Medications at Time [...] Used ??? Alcohol use No Lives in [place], working at the [employer] there. Has two [...] - 11/08/2017 3:08 PM CDTAssociated Order(s): ERCP [facility] [place] [facility] Patient Name: Carol Cooley Procedure Date: [...] anesthesia, benzocaine spray and indomethacin 100 mg ID Complications: No immediate complications. Estimated blood loss: [...] 1 : Perianal for CRE Swab Perianal [facility] SURVEILL[facility] PCR Rubio Baker M.D. 11/08/2017 1539 Drains None Estimated Blood Loss No blood loss documented. Implants * No implants in log * Rubio Baker M.D. documented in this encounter Plan of Treatment Scheduled Procedures Name Priority Associated Diagnoses Date/Time COLONOSCOPY Diarrhea Scheduled Referrals Name Type Priority Associated Diagnoses [facility] - [facility] Referral Routine Calculus [...] Duct Without Cholangitis Or Cholecystitis With Obstruction [facility] PCR Routine 11/08/2017 Calculus Of Bile [...] minutes. Rubio Baker M.D. IMG FLUOROSCOPY PROCEDURES [facility] Surveillance PCR Perianal (11/08/2017 3:39 PM CDT) Patholo gist Method Time Signature Specimen RECTAL SWAB 11/09/2017 [facility] source 1:40 PM CDT [facility] - [facility] PCR Negative Not 11/09/2017 [facility] Applicable 1:40 PM CDT [facility]ATORIES - [facility] ND PCR Negative Not 11/09/2017 [facility] Applicable 1:40 PM CDT [facility]ATOR[facility] - [facility] Comment: ----ADDITIONAL INFORMATION---- This test was developed and its performa nce characteristics determined by [facility] in a manner consistent with CLIA requirements. This test has not been cleared or approved by the [place] d and Drug Administration. Specimen (Source) Anatomical Collection Method Collection Time Re ceived Time Location / / Volume Laterality Swab (Perianal) 11/08/2017 3:39 PM CDT Rubio Baker M.D. LAB MICROBIOLOGY - GENERAL O RDERABLES Performing Organization Address City/State/ZIP Code Phon e Number [facility] - [address] [id number] [facility] ERCP (11/08/2017 3:08 PM CDT) Specimen (Source) Anatomical Location Collection Method / Collectio n Time Received Time / Laterality Volume Narrative This result has an attachment that is no t available. Procedure Note Rubio Baker M.D. - 11/08/2017 3:0 8 PM CDT [facility] [place] Patient Name: Carol Cooley Procedure Date: [...] The 0.035 mm Jagwire was advanced up e bile duct. Contrast was injected. I [...] benzocaine spray an d indomethacin 100 mg ID Complications: No immediate complication s. Estimated blood [...] Without Cholangiti s Or Cholecystitis With Obstruction Calculus Of Bile Duct Without Cholangiti s [...] MAR Action Action Date Dose Rate Site benzocaine 20 % mouth spray Given 11/08/2017 3:35 PM CDT 1 appli cation (for_HURRICAINE/TOPEX) As needed, Starting on Wed11/08/17 at 1535, Intra-Op indomethacin suppository (for_INDOCIN) Given 11/08/2017 4:02 PM CDT 100 mg As needed, Starting on Wed11/08/17 at 1602, Intra-Op ioversol 240 mg iodine/mL 50 mL in NaCl 0.9% Given 4:04 PM CDT 100 mL 100 mL intravenous solution As needed, Starting on Wed11/08/17 at 1604, Intra-Op lactated ringers New Bag 11/08/2017 3:32 PM [...] lactated ringers 1532 (New Bag - Provider: Katarina Cruz R.N.) 200 mL/hr, intravenous, at 200 mL/hr, Co ntinuous, Starting Wed11/08/17 at 1500, Pre-Op lactated ringers 1700 (Due) 100 mL/hr, intravenous, at 100 mL/hr, Continuous, Starting M 11/08/17 at 1700 PRN Medication Order 11/06/2017 11/07/2017 11/08/2017 benzocaine 20 % mouth spray (for_HURRICAINE/TOPEX) (CANCELED) 6480 (Given - Provider: Rubio D Olivia, M.D.) [...] duct - not IV) As needed, Starting Wed11/08/17 at 1604, Intra-Op ondansetron (PF) injection 4 [...] as of this encounter Care Teams Cigarette Making Machine Operator Relationship Specialty Start Date End Date Blaire Bundy P.A.-C. PCP - General 02/04/17 04/26/19 documented as of this encounter
--- OUTSIDE RECORDS SUMMARY | 2022-06-29 09:29 | XMS_ITS | Encounter Summary ---
:1985 Author Organization [facility] Address [address] [place] [address] Care Team Providers Name Role Phone Blaire Bundy P.A.-C. 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 Procedures DERRICK Zamora [address] [place] [address] Referral ID Status Reason Start Date Expiration Date Visits V isits Requested Authorized [id number] Closed Specialty 11/08/2017 05/07/2018 1 1 Services Required Encounter Details Date Type Department Care Team Description 11/11/2017 Comprehensive Visit Department of Adonis Baker M.D. [address] [place] [address] Pain Right Upper Quadrant (Primary Dx); [place] 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 [address] [address] Social History Tobacco Use Types Packs/Day [...] How often do you attend buddhism or jainism More than 4 time s [...] Sign Reading Time Taken Comments Blood Pressure 107/40 11/11/2017 12:22 PM CDT Pulse 139 11/11/2017 12:22 PM CDT Temperature 36.2 ??C (97.2 ??F) 11/11/2017 11:26 AM CDT Respiratory Rate - - Oxygen Saturation - - Inhaled Oxygen Concentration - - Weight - - Height - - Body Mass Index - - documented in this encounter Consult Notes Seng Reyna M.D. - 11/11/2017 11:15 AM CDT SUBJECTIVE REASON FOR CONSULT Carol oColey is a 31 y.o. female who presents for evaluation of Consult (gallbladder) and Cholelithiasis. She was referred by Rubio Baker M.D. HISTORY OF PRESENT ILLNESS Ms. Cooley was referred for evaluation of RUQ pain and choledocholithiasis. The symptoms were first noted a few days ago, and have been present multiple times daily. The patient also notes issues with weakness and black tarry stools. Symptoms have gradually worsened. Symptoms are not associated with meals. The patient has undergone further work up, including recent ERCP. She felt well for two days, then developed nausea and began to pass black stools last evening. She has had 15 black stools since then. Past Surgical History: Procedure Laterality Date ??? ENDOSCOPIC RETROGRADE CHOLANGIOPANCREATOGRAPHY (ERCP) N/A 11/08/2017 Procedure: ENDOSCOPIC RETROGRADE CHOLANGIOPANCREATOGRAPHY; Surgeon: Rubio Baker M.D.; Location: [facility] OR ??? ESOPHAGOGASTRODUODENOSCOPY N/A 11/11/2017 Procedure: ESOPHAGOGASTRODUODENOSCOPY; Surgeon: Rubio Baker M.D.; Location: [facility] GI LAB ??? LAPAROSCOPIC APPENDECTOMY N/A 09/08/2017 Procedure: LAPAROSCOPIC APPENDECTOMY; Surgeon: Edd Moeller D.O.; Location: [facility] OR ??? OTHER CONVERTED SHX (SEE COMMENT) N/A 06/24/2017 >1. Normal spontaneous vaginal delivery. 2. Second-degree midline laceration and repair. Past Medical History: Diagnosis Date ??? Sleep Apnea Prior to Admission medications Medication Sig Start Date End Date Taking? Authorizing Provider acetaminophen (for_TYLENOL) 500 mg tablet Take 1-2 tablets by mouth every 6 (six) hours as needed. 06/24/17 Historical ProviderSera omeprazole (for_PriLOSEC) 40 mg capsule Take 40 mg by mouth every morning before breakfast. Reflux/GERD Historical ProviderSera Allergies Allergen Reactions ??? Penicillins Other (see comments) Does not recall reaction- reports reaction during childhood. Family History Problem Relation Age of Onset ??? Cancer Grandmother ear ??? Cystic fibrosis Sister ??? Cancer Grandfather larynx ??? Lung cancer Grandmother brain cancer ??? Heart attack Father 47 ??? Hypothyroidism Mother Social History Social History ??? Marital status: Spouse name: N/A ??? Number of children: N/A ??? Years of education: N/A Social History Main Topics ??? Smoking status: Former Smoker ??? Smokeless tobacco: Never Used ??? Alcohol use No ??? Drug use: No ??? Sexual activity: Yes Partners: Male Other Topics Concern ??? None Social History Narrative ??? None The following portions of the patient's history were reviewed and updated as appropriate: allergies,current medications, family history, medical history, social history, surgical history and problem list. REVIEW OF SYSTEMS Pertinent items are noted in HPI; all other review of systems was negative. OBJECTIVE BP (!) 107/40 Pulse (!) 139 Temp 36.2 ??C (Temporal) LMP (Within Months) Comment: 3 months agoright after her son was born ? No PHYSICAL EXAM Constitutional: She is alert and oriented to person, place, and time. She appears well-developed andwell-nourished. She does not appear ill. No distress. HENT: Head: Normocephalic and atraumatic. Right Ear: External ear and ear canal normal. Left Ear: External ear and ear canal normal. Nose: Nose normal. Mouth/Throat: Uvula is midline and oropharynx is clear and moist. Eyes: Pupils are equal, round, and reactive to light. No scleral icterus. Neck: Trachea normal and full passive range of motion without pain. Carotid bruit is not present. Nothyroid mass and no thyromegaly present. Cardiovascular: Regular rhythm and normal heart sounds. Tachycardia present. Pulmonary: Effort normal and breath sounds normal. No tachypnea. No respiratory distress. Abdominal: Soft. She exhibits no distension and no ascites. There is no hepatosplenomegaly. There istenderness in the right upper quadrant. No hernia. Lymphadenopathy: She has no cervical adenopathy. She has no axillary adenopathy. Right: No inguinal adenopathy present. Left: No inguinal adenopathy present. Neurological: She is alert and oriented to person, place, and time. She has normal reflexes. No cranial nerve deficit or sensory deficit. Skin: Skin is warm and intact. She is diaphoretic. There is pallor. Psychiatric: She has a normal mood and affect. Her speech is normal and behavior is normal. Diagnostics Lipase, S Date Value Ref Range Status 11/11/2017 42 13 - 60 U/L Final INR Date Value Ref Range Status 11/11/2017 0.9 0.9 - 1.2 Final Comment: Standard intensity warfarin therapeutic range: 2.0 to 3.0 High intensity warfarin therapeutic range: 2.5 to 3.5 Bilirubin, Total, S Date Value Ref Range Status 11/11/2017 0.3 <=1.2 mg/dL Final Imaging: I have reviewed the lmaging. US: IMPRESSION: 1. Cholelithiasis, without evidence of acute cholecystitis. 2. Bile duct dilatation is noted, the common bile duct measuring up to 8.7 mm in the common hepatic duct measuring 9.6 mm, without confirmed evidence of intraluminal filling defects. By report, patient is currently scheduled for ERCP later today. 3. Suspect fatty infiltration of the liver. CT: IMPRESSION: 1. Dilated biliary system. No radiopaque calculus identified. Recommend further evaluation with ultrasound or MRCP. 2. Right colonic wall thickening\edema. Findings can be seen with colitis in the appropriate clinical context. 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 Arranged urgent transfer to ED for further treatment and evaluation in an acute care setting. Discussed with patient. Discussed with ED Physician using SBAR technique. Today, I personally spent 30 minutes with the patient, of which greater than 50% of the time was spent in patient education, counseling, and coordination of care as described above. documented in this encounter Plan of Treatment Scheduled Procedures Name Priority Associated Diagnoses Date/Time COLONOSCOPY Diarrhea documented as of this encounter Procedures Procedure Name Priority Date/Time Associated Comments Diagnosis TYPE AND SCREEN Routine 11/11/2017 12:30 Pain Right Upper Resu lts for this PM CDT Quadrant procedure are i n the results section. CBC WITH DIFFERENTIAL, Routine 11/11/2017 12:18 Pain Right Upp er Results for this B PM CDT Quadrant procedure are i n the results section. LIPASE, S/P Routine 11/11/2017 12:18 Pain Right Upper Results for this PM CDT Quadrant procedure are i n the results section. COMPREHENSIVE Routine 11/11/2017 12:18 Pain Right Upper Result s for this METABOLIC PANEL, S/P PM CDT Quadrant procedu re are in the results section. documented in this encounter Results Type and screen (11/11/2017 12:30 PM CDT) [facility] gist Method Time Signature ABO Group A 11/11/2017 [facility] 1:05 PM CDT [facility] Rh Type NEG 11/11/2017 [facility] 1:05 PM CDT [facility] Antibody Screen NEG 11/11/2017 [facility] 1:16 PM CDT [facility] Type & Screen 11/14/2017 [facility] Expiration 23:[facility] ELXM Eligible Y 11/11/2017 [facility] 1:16 PM CDT [facility] Specimen Anatomical Collection Method Collection Time Receive d Time (Source) Location / / Volume Laterality Blood (Blood, 11/11/2017 12:30 11/11/2017 Venous) PM CDT 12:41 PM CDT Seng Reyna M.D. LAB BLOOD BANK TEST ORDERABL ES Performing Organization Address City/State/ZIP Code Phon e Number [facility] [address] [facility] [facility] [place] [address] [facility] Lipase (11/11/2017 12:18 PM CDT) athologist Signature Lipase, S 42 13 - 60 U/L 11/11/2017 [facility] 1:01 PM CDT [facility] Specimen Anatomical Collection Method Collection Time Receive d Time (Source) Location / / Volume Laterality Blood (Blood, 11/11/2017 12:18 11/11/2017 Venous) PM CDT 12:40 PM CDT Seng Reyna M.D. LAB BLOOD ADD-ON Performing Organization Address City/State/ZIP Code Phon e Number [facility] [address] [place] [address] [facility] (ABNORMAL) CMP (Comprehensive Metabolic Panel) (11/11/2017 12:18 PM CDT) P athologist Signature Potassium, S 5.4 (H) 3.6 - 5.2 11/11/2017 [facility] mmol/L 1:01 PM T [facility] Sodium, S 138 135 - 145 11/11/2017 [facility] mmol/L 1:01 PM T [facility] Chloride, S 103 98 - 107 11/11/2017 [facility] mmol/L 1:01 PM T [facility] Bicarbonate, S 23 22 - 29 11/11/2017 [facility] mmol/L 1:01 PM T [facility] Anion Gap 12 7 - 15 11/11/2017 [facility] 1:01 PM T [facility] BUN (Blood Urea 35 (H) 6 - 21 11/11/2017 [facility] Nitrogen), S mg/dL 1:01 PM [facility] Creatinine 0.69 0.59 - 11/11/2017 [facility] 1.04 mg/dL 1:01 PM [facility] eGFR >90 >=60 11/11/2017 [facility] Non-Black/Afric mL/min/BSA 1:01 PM [facility] Comment: ----ADDITIONAL INFORMATION---- Estimated GFR calculated using the 2009 CKD_EPI creatinine equation. eGFR Black/ >90 >=60 mL/min/BSA 11/11/2017 1:01 PM [facility] Comment: ----ADDITIONAL INFORMATION---- Estimated GFR calculated using the 2009 CKD_EPI creatinine equation. Calcium, Total, S 8.9 8.9 - 10.1 11/11/2017 1:01 PM [facility] mg/dL [facility] Glucose, S 153 (H) 70 - 140 mg/dL 11/11/2017 1:01 PM [facility] Protein, Total, S 6.0 (L) 6.3 - 7.9 g/dL 11/11/2017 1:01 P M [facility] Albumin, S 3.4 (L) 3.5 - 5.0 g/dL 11/11/2017 1:01 PM [facility] Aspartate 23 8 - 43 U/L 11/11/2017 1:01 PM [facility] Aminotransferase (AST), S [facility] [place] [facility] Alkaline Phosphatase, S 124 (H) 37 - 98 U/L 11/11/2017 1:0 1 PM [facility] Alanine Aminotransferase 370 (H) 7 - 45 U/L 11/11/2017 1:0 1 PM [facility] (ALT), S [facility] Bilirubin, Total, S 0.3 <=1.2 mg/dL 11/11/2017 1:01 PM [facility] Specimen Anatomical Collection Method Collection Time Receive d Time (Source) Location / / Volume Laterality Blood (Blood, 11/11/2017 12:18 11/11/2017 Venous) PM CDT 12:40 PM CDT Seng Reyna M.D. LAB BLOOD ADD-ON Performing Organization Address City/State/ZIP Code Phon e Number [facility] [address] [place] [address] [facility] (ABNORMAL) CBC with Differential (11/11/2017 12:18 PM CDT) [facility] Method Time Signature Hemoglobin 9.2 (L) 11.6 - 11/11/2017 [facility] 15.0 g/dL 12:45 PM CDT [facility] Hematocrit 29.6 (L) 35.5 - 11/11/2017 [facility] 44.9 % 12:45 PM CDT [facility] Erythrocytes 3.39 (L) 3.92 - 11/11/2017 [facility] 5.13 12:45 PM CDT [facility] x[facility](12)/[facility] MCV 87.3 78.2 - 11/11/2017 [facility] 97.9 fL 12:45 PM CDT [facility] RBC Distrib Width 15.4 12.2 - 11/11/2017 [facility] 16.1 % 12:45 PM CDT [facility] Platelet Count 374 (H) 157 - 371 11/11/2017 [facility] x10(9)/L 12:45 PM CDT [facility] Leukocytes 15.1 (H) 3.4 - 9.6 11/11/2017 [facility] x10(9)/L 12:45 PM CDT [facility] Neutrophils 10.79 (H) 1.56 - 11/11/2017 [facility] 6.45 12:45 PM CDT [facility] Lymphocytes 3.57 (H) 0.95 - 11/11/2017 [facility] 3.07 12:45 PM CDT [facility] Monocytes 0.65 0.26 - 11/11/2017 [facility] 0.81 12:45 PM CDT [facility](9[facility] Eosinophils 0.03 0.03 - 11/11/2017 [facility] 0.48 12:45 PM CDT [facility](9[facility] Basophils 0.05 0.01 - 11/11/2017 [facility] 0.08 12:45 PM CDT [facility]10(9[facility] Specimen Anatomical Collection Method Collection Time Receive d Time (Source) Location / / Volume Laterality Blood (Blood, 11/11/2017 12:18 11/11/2017 Venous) PM CDT 12:40 PM CDT Seng Reyna M.D. LAB BLOOD ADD-ON Performing Organization Address City/State/ZIP Code Phon e Number [facility] [address] [place] [address] [facility] documented in this encounter Visit Diagnoses Diagnosis Pain Right Upper Quadrant - Primary 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 documented in this encounter Additional Health Concerns Assessment Noted Time PHQ-9 Depression Total Score: 7 04/07/2017 9:39 AM CDT documented as of this encounter Care Teams Chemical Waste Management Technician Relationship Specialty Start Date End Date Blaire Bundy P.A.-C. PCP - General 02/04/17 04/26/19 documented as of this encounter
--- OUTSIDE RECORDS SUMMARY | 2022-06-29 09:30 | XMS_ITS | Encounter Summary ---
:1985 Author Organization [facility] Address [address] [place] [address] Care Team Providers Name Role Phone Blaire Bundy P.A.-C. Primary Care Provider Reason for Visit Reason Comments Abdominal Pain RLQ for 3 days, pain is wors ening, vaginal delivery 2 months ago, ibuprofen yesterday without relief, nausea today, hasn't eaten today, had lunch yesterday, BM this am, LMP 2 weeks ago, not breast feeding Auth/Cert Specialty Diagnoses / Procedures Referred By Contact Refer red To Contact Diagnoses Appendicitis Acute Appendicitis Acute Procedures LAPAROSCOPIC APPENDECTOMY Referral ID Status Reason Start Date Expiration Date Visits Requ ested Visits Authorized [id number] 1 1 Encounter Details Date Type Department Care Team Description 09/08/2017 Surgery [facility] MAIN OR Jaquan Monahan, LAPAROSCOPIC [address] D.OBrittaney APPENDECTOMY [place]HEMIAH GRANT [phone] [phone] NEHEMIAH Nix [phone] (Wo rk) Social History Tobacco Use Types [...] How often do you attend yazidi or orthodox More than 4 time s per [...] Sign Reading Time Taken Comments Blood Pressure 143/71 09/08/2017 2:13 PM GAUGE INSPECTOR Pulse 116 09/08/2017 2:13 PM GAUGE INSPECTOR Temperature 36.9 ??C (98.4 ??F) 09/08/2017 2:13 PM GAUGE INSPECTOR Respiratory Rate 16 09/08/2017 2:13 PM GAUGE INSPECTOR Oxygen Saturation 96% 09/08/2017 2:13 PM GAUGE INSPECTOR Inhaled Oxygen Concentration - - Weight 145 kg (319 lb 10.7 oz) 09/08/2017 2:13 PM GAUGE INSPECTOR Height 157.5 cm (5' 2) 09/08/2017 10:09 AM GAUGE INSPECTOR Body Mass Index 58.47 09/08/2017 10:09 AM GAUGE INSPECTOR documented in this encounter Discharge Summaries Seng Reyna M.D. - 09/09/2017 9:51 AM CST INPATIENT DISCHARGE SUMMARY BRIEF OVERVIEW Discharge Provider: Taryn Ozuna M.D. Primary Care Providers: Blaire Thornton P.A.-C. (General) [address] [place] [id number] Primary Care Provider Primary Care Provider Other Providers: Admission Date: 09/08/2017 Discharge Date: 09/09/2017 PRINCIPAL DIAGNOSIS Appendicitis Acute SECONDARY DIAGNOSES Principal Problem: Appendicitis Acute Resolved Problems: * No resolved hospital problems. * Operative Procedures: Scheduled (Blank), Completed (Comp) or Canceled (Can) Case IDs Date Procedure Surgeon Location Status [id number] 09/08/17 LAPAROSCOPIC APPENDECTOMY Jaquan Monahan D.O. [facility] OR Comp DISCHARGE DISPOSITION Home or Self Care [1] ACTIVE ISSUES REQUIRING FOLLOW UP Surgical Pathology OUTPATIENT FOLLOW UP No future appointments. TEST RESULTS PENDING AT DISCHARGE Pending Labs Order Current Status Pathology Services Collected (09/08/17 8350) DISCHARGE MEDICATIONS Your medication list START taking these medications Instructions Last Dose Given Next Dose Due ciprofloxacin 500 mg tablet Commonly known as: for_CIPRO Take 1 tablet (500 mg total) by mouth 2 (two) times a day for 10 days. metroNIDAZOLE 500 mg tablet Commonly known as: for_FLAGYL Take 1 tablet (500 mg total) by mouth 3 (three) times a day for 5 days. oxyCODONE-acetaminophen 5-325 mg per tablet Commonly known as: for_PERCOCET Take 1-2 tablets by mouth every 4 (four) hours as needed for pain (pain) for up to 5 days. CONTINUE taking these medications Instructions Last Dose Given Next Dose Due ibuprofen 200 mg tablet Commonly known as: for_ADVIL,MOTRIN Take 200 mg by mouth as needed. Where to Get Your Medications These medications were sent to [facility] [address] [address] ?? ciprofloxacin 500 mg tablet ?? metroNIDAZOLE 500 mg tablet You can get these medications from any pharmacy Bring a paper prescription for each of these medications ?? oxyCODONE-acetaminophen 5-325 mg per tablet DETAILS OF HOSPITAL STAY REASON FOR ADMISSION Appendicitis Acute Appendicitis Acute HOSPITAL COURSE The patient withstood the described procedure satisfactorily and the post- operative course was one of gradual recovery. By the day of discharge, the patient was afebrile, tolerating a diet satisfactorily and moving aboutwith the expected amount of incisional discomfort. The patient was felt stable for discharge at this point. She reports ambulating, abdominal pain, chills and tolerating diet She denies bowel movement, diarrhea, fever, nausea, adequate pain control, shortness of breath and vomiting. Feels ready to go home. Medications, vital signs, and ins/outs reviewed: Yes Laboratory, microbiology, radiology results reviewed: Yes Constitutional: No distress. Cardiovascular: Normal rate and regular rhythm. Pulmonary: Breath sounds normal. No respiratory distress. Abdominal: Soft. Bowel sounds are normal. There is tenderness. There is no rebound and no guarding. Appropriate incisional tenderness. Dressings dry. There is expected incisional tenderness. Skin: She is not diaphoretic. CONSULTS ORDERED DURING THIS ADMISSION ANESTHESIA FOLLOW-UP CONDITION AT DISCHARGE improved E INSPECTOR documented in this encounter Discharge Instructions AttachmentsThe following attachments cannot be sent through Care Everywhere.Care Following Your Laparoscopy (Icelandic)documented in this encounter Medications at Time of Discharge Medication Sig Dispensed Refills Start Date End Date acetaminophen Take 1-2 tablets by 0 06/24/2017 (for_TYLENOL) 500 mg mouth every 6 (six) tablet hours as needed. ciprofloxacin (for_CIPRO) Take 1 tablet (500 20 tablet 0 09/19/2017 500 mg tablet mg total) by mouth 2 (two) times a day for 10 days. metroNIDAZOLE (for_FLAGYL) Take 1 tablet (500 15 tablet 0 0 09/09/2017 09/14/2017 500 mg tablet mg total) by mouth 3 (three) times a day for 5 days. oxyCODONE-acetaminophen Take 1-2 tablets by 30 tablet 0 09/14/2017 (for_PERCOCET) 5-325 mg mouth every 4 per tablet (four) hours as needed for pain (pain) for up to 5 days. docusate sodium Take 1 capsule by 0 06/24/2017 (for_COLACE) 100 mg mouth 2 (two) times capsule a day as needed. ibuprofen Take 200 mg by 0 11/12/2017 (for_ADVIL,MOTRIN) 200 mg mouth as needed. tablet ibuprofen Take 3 tablets by 0 06/24/2017 018 (for_ADVIL,MOTRIN) 200 mg mouth every 6 (six) tablet hours as needed. sennosides (SENNA) 8.6 mg Take 2 tablets by 0 09/201611/07/2017 tablet mouth at bedtime as needed. documented as of this encounter Progress Notes Nancy Smith M.D. - 09/09/2017 8:52 AM CST Anesthesia Post-Op Visit Patient: Puneet Clayton Anesthesia Post-Op Visit Postoperative day: 1 Follow-up type: inpatient Cardiovascular status: hemodynamic (HR & BP) acceptable Respiratory status: patent airway with spontaneous effort Oxygen requirements: room air Level of consciousness: awake Pain score: pain adequately controlled and /or at baseline Post Op nausea/vomiting: none E INSPECTOR documented in this encounter H&P Notes Jaquan Monahan D.O. - 09/08/2017 12:44 PM CST SUBJECTIVE Chief Complaint Abdominal pain History of Present Illness Ms. Puneet Clayton is a 31 y.o. female who presents with Complaints of abdominal pain. She describes a gradual onset Wednesday evening with right lower quadrant abdominal pain. At that time she thoughtwas a ???pulled muscle?? . She had difficulty sleeping that night. She woke up on Wednesday with continued pain which progressively worsened. She described herself is chilled all day. She states her to walk and bend over. Despite that she went to work she had some nausea but no vomiting. She denies fevers. Her bowels and bladder okay. She woke up this morning unable to move because of the pain, and presented to the emergency department for evaluation. Review of Systems Pertinent items are noted in HPI; all other review of systems was negative. OBJECTIVE Vital Signs Temperature: [37.4 ??C] 37.4 ??C Resp Rate: [16-18] 16 Blood Pressure: (122-138)/(67-74) 122/67 SpO2: [96 %-97 %] 96 % Pulse Rate: [107-118] 107 Physical Exam Patient is a 31-year-old well-developed, well-nourished, morbidly obese female. She is alert and oriented to person, place, and time. She is reactive in stable, responds appropriate questions, and appearance is consistent with stated age. HEENT examination is essentially unremarkable. Pupils are equal and reactive to light accommodation.Extraocular muscles are intact. Tongue and uvula are midline. Tonsils are somewhat enlarged but otherwise normal. Teeth in good repair. Neck is supple. There is no lymphadenopathy. Trachea is midline. Thyroid is not enlarged. No carotidbruits are auscultated. Heart rate rhythm are regular without clicks or murmurs. Lungs are clear to auscultation bilaterally without rales, rhonchi, or wheezes. Abdomen is soft. Bowel sounds are present all 4 quadrants. She has fairly exquisite right lower quadrant abdominal tenderness with guarding and rebound. Diagnostics Reviewed current laboratory and imaging results including: Laboratory Studies Recent Labs 09/08/17 1050 NA 135 CL 99 CALCIUM 9.1 GLUCOSE 104 BUN 7 CREATININE 0.62 ALBUMIN 3.9 CRP 115.8 H Recent Labs 09/08/17 1050 WBC 15.8 H HGB 12.3 HCT 37.8 PLT 293 Imaging Results, Last 2 Days - Impression and Addendum Only Ct Abdomen Pelvis With Iv Contrast Result Date: 09/08/2017 Impression: IMPRESSION: 1. Acute uncomplicated appendicitis. 2. Hepatic steatosis. 3. Prominent follicle right ovary. Assessment/Plan 1. Acute appendicitis 2. Morbid obesity Plan 1. Laparoscopic appendectomy with possible open. Patient understands nature procedure. She understands risks and complications including infection, bleeding, injury to the bowel, bladder, ureter, or fallopian tube. She gives informed consent. E INSPECTOR documented in this encounter Nursing Notes Kiera Bush R.N. - 09/09/2017 11:01 AM CST Goals: will be able to discharge today Identify possible barriers to meeting goals/advancing plan of care: pain control Stability of the patient: Moderately Stable - Low risk of patient condition declining or worsening End of Shift Summary: the pt remained in control of her pain during this shift DISCHARGE PLANNING ??? Patient discharge needs identified Adequate for Discharge INFECTION - ADULT ??? Absence of infection during hospitalization Adequate for Discharge KNOWLEDGE DEFICIT ??? Patient/family/caregiver demonstrates understanding of disease process, treatment plan, medications, and discharge instructions Adequate for Discharge PAIN - ADULT ??? PT VERBALIZES/DEMONSTRATES ADEQUATE COMFORT LEVEL OR BASELINE Adequate for Discharge SAFETY ADULT ??? Maintain a safe environment Adequate for Discharge SKIN/TISSUE INTEGRITY ??? Skin/Tissue integrity maintained or improved Adequate for Discharge ??? Oral and Nasal mucous membranes remain intact Adequate for Discharge E INSPECTOR Suni Perales R.N. - 09/09/2017 2:12 AM CST DISCHARGE PLANNING ??? Patient discharge needs identified Progressing INFECTION - ADULT ??? Absence of infection during hospitalization Progressing KNOWLEDGE DEFICIT ??? Patient/family/caregiver demonstrates understanding of disease process, treatment plan, medications, and discharge instructions Progressing PAIN - ADULT ??? PT VERBALIZES/DEMONSTRATES ADEQUATE COMFORT LEVEL OR BASELINE Progressing SAFETY ADULT ??? Maintain a safe environment Progressing SKIN/TISSUE INTEGRITY ??? Skin/Tissue integrity maintained or improved Progressing ??? Oral and Nasal mucous membranes remain intact Progressing Goals: Return of normal bowels functions. Headache pain better controlled. Identify possible barriers to meeting goals/advancing plan of care: none Stability of the patient: Moderately Stable - Low risk of patient condition declining or worsening End of Shift Summary:Pt rested well during the night VSS. She did have a headache twice during the night but she states that this is a recent diagnosis for her. E INSPECTOR Charline Lundberg R.N. - 09/08/2017 9:42 PM CST DISCHARGE PLANNING ??? Patient discharge needs identified Progressing INFECTION - ADULT ??? Absence of infection during hospitalization Progressing KNOWLEDGE DEFICIT ??? Patient/family/caregiver demonstrates understanding of disease process, treatment plan, medications, and discharge instructions Progressing PAIN - ADULT ??? PT VERBALIZES/DEMONSTRATES ADEQUATE COMFORT LEVEL OR BASELINE Progressing SAFETY ADULT ??? Maintain a safe environment Progressing SKIN/TISSUE INTEGRITY ??? Skin/Tissue integrity maintained or improved Progressing ??? Oral and Nasal mucous membranes remain intact Progressing Goals: Adequate pain control Identify possible barriers to meeting goals/advancing plan of care:none Stability of the patient: Moderately Stable - Low risk of patient condition declining or worsening End of Shift Summary: rating pain o-1 Refuses pain medication at this time E INSPECTOR documented in this encounter OR Notes Op Note - Jaquan Monahan D.O. - 09/08/2017 4:35 PM CST FULL OP NOTE Procedure(s): LAPAROSCOPIC APPENDECTOMY Surgeon(s) and Role: * Jaquan Monahan D.O. - Primary Smoke Inspector: Mandi Santoyo L.P.N.; Nichole Allen L.P.N. Anesthesia Type: General Pre-Operative Diagnosis: Appendicitis Acute [K35.80] Full Operative Note Details History and gross findings: Ms Clayton is a 31-year-old female who presents with complaints of abdominal pain. She describes a gradual onset Wednesday evening with right lower quadrant pain. At that time she thought was a ???pulled muscle. She had a progressive increase in pain through Wednesday, but was able to go to work. She presents to the ER today with pain that is becoming unbearable. She has right lower quadrant abdominal pain guarding and rebound. Her white count is elevated at 15.8. CT scan confirms the diagnosis of appendicitis. Operative findings were that of acute suppurative appendicitis, likely gangrenous appendicitis. She has quite a bit of inflammatory reaction involving the terminal ileum, ileocecal fat pad, andcecum. Loculated adhesions were able to be broken up and we were able to complete the surgery laparoscopically. Remaining small and large bowel as visualized through the scope were unremarkable. Description of procedure: Patient was taken to the operating room and placed on the operating table in the supine position. AFoley catheter was placed. The abdomen was prepped with chlorhexidine solution and draped in a sterile manner. A procedure pause was performed to confirm the patient identity, procedure to be performed, and special equipment needed. The infraumbilical fold was anesthetized with 1 percent xylocaine and a small vertical incision made with 15. Scalpel blade. Subcuticular tissues were dissected with a hemostat. The fascia was graspedwith a perforating towel clip and elevated. A 14 gauge Veress needle was inserted into the abdominalcavity. Its position was confirmed with the hanging saline drop test. The abdomen was then insufflated with approximately 3.5 liters of CO2 gas to a pressure of 15 millimeters Hg. A 5 millimeters 0 degree laparoscopic was then inserted. Under direct vision, a 2nd 5 millimeter port was placed in the suprapubic space, and a 12 millimeter port placed in the left mid abdomen. Adhesions were gently peeled away to expose the appendix. The appendix was grasped and held under traction. The mesoappendix was then taken down with LigaSure dissection down to the appendiceal base. The appendical cecal junction was identified. The appendectomy was then performed using a blue load Endo-MAVIS stapling device. The appendix was placed in Endo-Catch bag and removed through the 12 millimeter port site. The right lower quadrant was then irrigated. Hemostasis was complete. All instruments and ports were removed and the CO2 gas allowed to escape. The 12 millimeter port site was closed at the fascial level with 0 Vicryl suture. Skin incisions were closed with interrupted subcuticular sutures of 4-0 un Vicryl. Patient tolerated procedure well and was sent to the recovery room in satisfactory condition. Specimens ID Type Source Tests Collected by Time A : appendix Tissue Appendix PATHOLOGY SERVICES Jaquan Monahan D.O. 09/08/2017 1708 Drains Indwelling Urinary Catheter Double-lumen 16 Fr. (Active) Estimated Blood Loss No blood loss documented. Implants * No implants in log * Jaquan Monahan D.O. E INSPECTOR Brief Op Note - Jaquan Monahan D.O. - 09/08/2017 4:35 PM CST BRIEF OP NOTE Procedure(s): LAPAROSCOPIC APPENDECTOMY Surgeon(s) and Role: * Jaquan Monahan D.O. - Primary Anesthesia Type: General Pre-Operative Diagnosis: Appendicitis Acute [K35.80] Post-Operative Diagnosis: Same as pre-operative diagnosis Findings: As expected Complications: None Specimens ID Type Source Tests Collected by Time A : appendix Tissue Appendix PATHOLOGY SERVICES Jaquan Monahan D.O. 09/08/2017 1708 Drains Indwelling Urinary Catheter Double-lumen 16 Fr. (Active) Estimated Blood Loss No blood loss documented. Implants * No implants in log * Jaquan Monahan D.O. E INSPECTOR documented in this encounter ED Notes Dimitri Car M.D. - 09/08/2017 10:31 AM CST Images from the original note were not included. SUBJECTIVE CHIEF COMPLAINT/REASON FOR VISIT Abdominal Pain (RLQ for 3 days, pain is worsening, vaginal delivery 2 months ago, ibuprofen yesterday without relief, nausea today, hasn't eaten today, had lunch yesterday, BM this am, LMP 2 weeks ago,not breast feeding) HISTORY OF PRESENT ILLNESS 31 year old female with a history of ADD, dysthymic disorder, headache, and obesity presents to the Emergency Department for evaluation of RLQ abdominal pain. The patient is 2 months after aNSVD and she is not . She is on the Depo Provera shot and her LMC was 2 weeks ago. Over the last 3 days since Wednesday 09/06, the patient has experienced gradually worsening, constant, stabbing RLQ abdominal pain. Yesterday, she onset with chills and took approximately 4-5 tablets of Ibuprofen without any relief. She currently rates her pain a 9/10 in severity. The patient has not eaten today and has experienced nausea. She did have a BM this morning, but this did not affect her pain. Denies any recent injury, vomiting, fever, dysuria, frequency, hematochezia, any history of kidney stones, any surgical history, any history of ovarian cysts, cough, ear pain, and sore throat. Her paternalgrandfather has a history of kidney stones. She quit her tobacco use 2 months ago and denies any alcohol, chew tobacco, and illicit drug use. Denies history of kidney stones. She still has her appendix History provided by: Patient REVIEW OF SYSTEMS Constitutional: Positive for appetite change and chills. Negative for diaphoresis and fever. HENT: Negative for congestion, ear pain and sore throat. Eyes: Negative for pain and visual disturbance. Respiratory: Negative for cough, orthopnea and shortness of breath. Cardiovascular: Negative for chest pain, palpitations and leg swelling. Negative for tachycardia Gastrointestinal: Positive for abdominal pain (RLQ) and nausea. Negative for blood in stool, diarrhea and vomiting. Genitourinary: Negative for dysuria, flank pain, frequency and hematuria. Musculoskeletal: Negative for back pain, joint swelling and extremity pain. Negative for muscle pain Skin: Negative for color change and rash. Negative for jaundice Neurological: Negative for dizziness, syncope, weakness and headaches. Psychiatric/Behavioral: Negative for depression. The patient is not nervous/anxious. OBJECTIVE Initial Vitals Temperature Pulse Rate Heart Rate Resp Rate Blood Pressure SpO2 09/08/17 1009 09/08/17 1009 09/08/17 1740 09/08/17 1009 09/08/17 1009 09/08/17 1009 37.4 ??C (!) 118 (!) 116 18 133/74 97 % Pain Score 09/08/17 1012 9 PHYSICAL EXAMINATION Constitutional: She appears well-nourished. She appears distressed (moderte due to abdominal pain). HENT: Head: Normocephalic and atraumatic. Right Ear: Tympanic membrane normal. Left Ear: Tympanic membrane normal. Mouth/Throat: Mucous membranes are moist. No posterior oropharyngeal erythema. Eyes: Conjunctivae and EOM are normal. Pupils are equal, round, and reactive to light. Neck: Normal range of motion. No thyromegaly present. Cardiovascular: Regular rhythm and normal heart sounds. Tachycardia present. No murmur heard. Pulmonary/Chest: Effort normal and breath sounds normal. There is normal air entry. She has no wheezes. Abdominal: Soft. Bowel sounds are normal. There is tenderness in the right lower quadrant. There is guarding (moderate right lower quadrant). There is no rebound and negative Flaherty's sign. Musculoskeletal: Normal range of motion. She exhibits no deformity. Neurological: She is alert and oriented to person, place, and time. She has normal reflexes. Skin: Skin is warm and dry. No rash noted. Psychiatric: She has a normal mood and affect. Her behavior is normal. Nursing note and vitals reviewed. ASSESSMENT/PLAN Impression and Plan Differential does include appendicitis or ovarian cyst as most likely. Will also evaluate for bladder infection or pyelonephritis. I will start an IV and give fluid bolus. Will do labs an abdominal pelvis CT with IV contrast. She will be given IV Zofran, Toradol and morphine as needed. Her pain is doing better. The CT does show appendicitis without perforation. She will be admitted for surgical treatment per Dr. Al Monahan, general surgery.. ED Course as of Sep 08 2138 Wed Sep 08, 2017 1123 The C-reactive protein is quite elevated. Her urinalysis also was moderately suspicious for bladder infection or possible pyelonephritis. Her pain is down to a 7/10 if she remains still. She denied than need for further pain medication at this time. She is still waiting to go down for the abdominal CT. She has tolerated cephalexin in the past so I will give her an initial dose of ceftriaxone to cover both bladder and initially appendicitis. C-Reactive Protein (CRP), S: (!) 115.[address] Adelfo Monroy, Radiology, called to notify me that the abdominal CT does show acute appendicitis without definite perforation or abscess. 1210 She is feeling better. Rating the pain at 4/10. I did notify her of the appendicitis in that I do have a call into the surgeon. She last ate yesterday about this time. 1212 Dr. Al Monahan, General Surgery, called back. I did discuss her presentation, exam, labs and her abdominal CT findings. He will accept the patient for admission. He will contact the nursing stockroom supervisor to determine a plan of when surgery would be done and whether she would be admitted to same-day surgery or possibly hospital. He will call back after that plan is determined. He did recommend IV Cipro and Flagyl for antibiotics. I had been going to give her the Rocephin, but I did cancel that. 1226 Dr. Al Monahan, General Surgery, arrived in the Emergency Department to see the patient. 1300 Dr. Al Monahan, General Surgery, was going to talk with the nursing stockroom supervisor and the operating room about the plan for when surgery would be done which will determine what her disposition fromthe emergency department will be. 1325 We were notified that she is going to be going to the operating room from the emergency department. She may or may not require to be admitted to observation after surgery. Final Diagnoses: as of Sep 08 2138 Appendicitis Acute Care Handoff Row Name 09/08/17 1212 Care Handoff Type of Handoff Admission handoff Providers name Dr. Al Monahan I personally performed the services described in this documentation, as scribed in my presence, and it is both accurate and complete. Dimitri Car M.D. 09/08/172138 E INSPECTOR documented in this encounter Plan of Treatment Scheduled Procedures Name Priority Associated Diagnoses Date/Time COLONOSCOPY Diarrhea Scheduled Referrals Name Type Priority Associated Diagnoses Order [facility] General Surgery Outpatient Referral Routine Appendicitis Acute Expected: Post Op (clinic) 09/15/2017 (Approximate), Expires: 09/09/2020 documented as of this encounter Procedures Procedure Name Priority Date/Time Associated Comments Diagnosis CBC WITH Routine 09/09/2017 7:05 Results for DIFFERENTIAL, B AM GAUGE INSPECTOR this procedu re are in the results section. INCENTIVE Routine 09/08/2017 6:39 SPIROMETRY - RT/RN PM GAUGE INSPECTOR INCENTIVE Routine 09/08/2017 6:39 SPIROMETRY - RT/RN PM GAUGE INSPECTOR INCENTIVE Routine 09/08/2017 6:39 SPIROMETRY - RT/RN PM GAUGE INSPECTOR INCENTIVE Routine 09/08/2017 6:39 SPIROMETRY - RT/RN PM GAUGE INSPECTOR INCENTIVE Routine 09/08/2017 6:39 SPIROMETRY - RT/RN PM GAUGE INSPECTOR INCENTIVE Routine 09/08/2017 6:39 SPIROMETRY - RT/RN PM GAUGE INSPECTOR INCENTIVE Routine 09/08/2017 6:39 SPIROMETRY - RT/RN PM GAUGE INSPECTOR INCENTIVE Routine 09/08/2017 6:39 SPIROMETRY - RT/RN PM GAUGE INSPECTOR INCENTIVE Routine 09/08/2017 6:39 SPIROMETRY - RT/RN PM GAUGE INSPECTOR INCENTIVE Routine 09/08/2017 6:39 SPIROMETRY - RT/RN PM GAUGE INSPECTOR INCENTIVE Routine 09/08/2017 6:39 SPIROMETRY - RT/RN PM GAUGE INSPECTOR ADULT OXYGEN Routine 09/08/2017 5:43 THERAPY PM GAUGE INSPECTOR PATHOLOGY SERVICES Routine 09/08/2017 5:08 Appendicitis Acute Results for PM GAUGE INSPECTOR this procedure are in the results section. LAPAROSCOPIC 09/08/2017 4:06 Appendicitis Acute APPENDECTOMY PM GAUGE INSPECTOR CT ABDOMEN PELVIS RAD - Semiurgent 09/08/2017 11:53 Re sults for WITH IV CONTRAST (Fast; most ED AM GAUGE INSPECTOR this proc edure patients; some are in the inpatients) results section. IRIS MICROSCOPIC, U STAT 09/08/2017 11:03 Resu lts for AM GAUGE INSPECTOR this procedure are in the results section. URINALYSIS WITH STAT 09/08/2017 11:03 Results for MICROSCOPIC IF AM GAUGE INSPECTOR this procedur e INDICATED, U are in the results section. HEPATIC FUNCTION STAT 09/08/2017 10:50 Results for PANEL, S AM GAUGE INSPECTOR this procedure are in the results section. CBC WITH STAT 09/08/2017 10:50 Results for DIFFERENTIAL, B AM GAUGE INSPECTOR this procedu re are in the results section. C-REACTIVE PROTEIN STAT 09/08/2017 10:50 Resul ts for (CRP), S/P AM GAUGE INSPECTOR this procedure are in the results section. HUMAN CHORIONIC STAT 09/08/2017 10:50 Results for GONADOTROPIN (HCG), AM GAUGE INSPECTOR this pro cedure AMRCI, are in the results section. LIPASE, S/P STAT 09/08/2017 10:50 Results for AM GAUGE INSPECTOR this procedure are in the results section. LACTATE, B/P STAT 09/08/2017 10:50 Results for AM GAUGE INSPECTOR this procedure are in the results section. BASIC METABOLIC STAT 09/08/2017 10:50 Results for PANEL, S/P AM GAUGE INSPECTOR this procedure are in the results section. documented in this encounter Results (ABNORMAL) CBC with Differential (09/09/2017 7:05 AM GAUGE INSPECTOR) [facility] Method Time Signature Hemoglobin 11.1 (L) 11.6 - 09/09/2017 [facility] 15.0 g/dL 7:11 AM GAUGE INSPECTOR [facility] Hematocrit 34.8 (L) 35.5 - 09/09/2017 [facility] 44.9 % 7:11 AM GAUGE INSPECTOR [facility] Erythrocytes 4.18 3.92 - 09/09/2017 [facility] 5.13 7:11 AM GAUGE INSPECTOR HE[facility] x10(12)/L [facility] MCV 83.3 78.2 - 09/09/2017 [facility] 97.9 fL 7:11 AM GAUGE INSPECTOR [facility] RBC Distrib Width 13.6 12.2 - 09/09/2017 [facility] 16.1 % 7:11 AM [facility]AUGE INSPECTOR [facility] Platelet Count 263 157 - 371 09/09/2017 [facility] x10(9)/L 7:11 AM GAUGE INSPECTOR [facility] Leukocytes 11.8 (H) 3.4 - 9.6 09/09/2017 [facility] x10(9)/L 7:11 AM GAUGE INSPECTOR [facility] Neutrophils 10.54 (H) 1.56 - 09/09/2017 [facility] 6.45 7:11 AM GAUGE INSPECTOR HEALTH x10(9)/L [facility] Lymphocytes 0.65 (L) 0.95 - 09/09/2017 [facility] 3.07 7:11 AM GAUGE INSPECTOR HEALTH x10(9)/L [facility] Monocytes 0.57 0.26 - 09/09/2017 [facility] 0.81 7:11 AM GAUGE INSPECTOR HEALTH x10(9)/L [facility] Eosinophils 0.01 (L) 0.03 - 09/09/2017 [facility] 0.48 7:11 AM GAUGE INSPECTOR HEALTH x10(9)/L [facility] Basophils 0.01 0.01 - 09/09/2017 [facility] 0.08 7:11 AM GAUGE INSPECTOR [facility]ALTH x10(9)/L [facility] Specimen Anatomical Collection Method Collection Time Receive d Time (Source) Location / / Volume Laterality Blood (Blood, 09/09/2017 7:05 AM 09/09/19 7:08 Venous) GAUGE INSPECTOR AM GAUGE INSPECTOR Jaquan Monahan D.O. LAB BLOOD ADD-ON Performing Organization Address City/[facility]/ZIP [facility] Phon e Number [facility] [address] [place] [address] [facility] Pathology Services (09/08/2017 5:08 PM GAUGE INSPECTOR) Component Value Ref Test Analysis Performed At [facility] Range Method Time Signature PATHOLOGY Patient Name: [facility] MR#: [id number] [facility] Submitting Physician: JAQUAN MONAHAN DO [id number] Specimen #[id number] Performing Lab: ??[facility] ? [address] [place] [id number] Source: Appendix Clinical History/Pre-Op Appendicitis acute [K35.80] Gross Description Labeled appendix consists of a 6.1 cm in length x 1.2 cm in diameter appendix, with attached mesoappendix ( 2.4 cm). ??The serosa is gatica-brown with focal areas of white exudate. ??The muco sa is red-brown hemorrhagic to necrotic. ??An area of disruption is not grossly id entified. ??Rodding Machine Tender sections are submitted in cassette A1. KG/ed ?? Diagnosis Appendix, appendectomy: ACUTE APPENDICITIS WITH PERIAPPENDICITIS. Electronically Signed By JANNET HERNÁNDEZ MD - 09/10/2017 ed/09/10/2017 Specimen (Source) Anatomical Collection Method Collection Time Re ceived Time Location / / Volume Laterality Tissue (Appendix) 09/08/2017 5:08 PM GAUGE INSPECTOR Comment: Acute appendicitis Jaquan Monahan D.O. LAB SURG PATH ORDERABLES Performing Organization Address City/[facility]/ZIP Code Phon e Number [address] [address] [address] Abdomen Pelvis with IV Contrast (09/08/2017 11:53 AM GAUGE INSPECTOR) Anatomical Region Laterality Modality Abdomen, Pelvis N/A Computed Tomography Specimen (Source) Anatomical Collection Method Collection Time Re ceived Time Location / / Volume Laterality 09/08/2017 12:00 PM GAUGE INSPECTOR Impressions 09/08/2017 12:07 PM GAUGE INSPECTOR IMPRESSION: 1. ??Acute uncomplicated appendicitis. 2. ??Hepatic steatosis. 3. ??Prominent follicle right ovary. Narrative 09/08/2017 12:07 PM GAUGE INSPECTOR EXAM: CT ABDOMEN PELVIS WITH IV CONTRAST COMPARISON: None FINDINGS: CHEST:Visible portions of the ??lung bas es are unremarkable. The visible portions of the heart and aorta are unremarkable. LIVER: Mild diffuse low-attenuation of t he liver compatible with hepatic steatosis. Gallbladder is unremarkable. SPLEEN: Spleen is unremarkable, no splen omegaly. STOMACH/DUODENUM: Stomach and duodenum a re unremarkable. PANCREAS: Pancreas is unremarkable. ADRENAL GLANDS: Adrenal glands are unrem arkable. KIDNEYS: Kidneys are unremarkable with s ymmetric nephrograms, no mass or hydronephrosis. COLON/SMALL BOWEL: Marked inflammatory c hanges right lower quadrant with fat infiltration and small ascites secondary to acute appendicitis. ??Appendix measures 1 cm in diameter with enhancing roach. ??No evidence of perforation or abscess formation. PELVIS: Prominent follicle right ovary m easures 2.7 cm. ??Pelvic contents otherwise unremarkable. MESENTERY AND RETROPERITONEUM: ??Promine nt mesenteric lymph nodes right lower quadrant. ??No other significant abdomin al or pelvic lymphadenopathy. Aorta and mesenteric vessels are unremarkable. ABDOMINAL WALL: No evidence of hernia. ? ?Unremarkable. BONES: No pathologic osseus lesions iden tified. Semi-urgent result reported to Dimitri Car on 09/08/2017 12:05 PM. Procedure Note Adelfo Monroy M.D. - 09/08/2017Formatti ng of this note might be different from the original. EXAM: CT ABDOMEN PELVIS WITH IV CONTRAST COMPARISON: None FINDINGS: CHEST:Visible portions of the lung bases are unremarkable. The visible portions of the heart and aorta are unremarkable. LIVER: Mild diffuse low-attenuation of t he liver compatible with hepatic steatosis. Gallbladder is unremarkable. SPLEEN: Spleen is unremarkable, no splen omegaly. STOMACH/DUODENUM: Stomach and duodenum a re unremarkable. PANCREAS: Pancreas is unremarkable. ADRENAL GLANDS: Adrenal glands are unrem arkable. KIDNEYS: Kidneys are unremarkable with s ymmetric nephrograms, no mass or hydronephrosis. COLON/SMALL BOWEL: Marked inflammatory c hanges right lower quadrant with fat infiltration and small ascites secondary to acute appendicitis. Appendix measures 1 cm in diameter with enhancing roach. No evidence of perforation or abscess formation. PELVIS: Prominent follicle right ovary m easures 2.7 cm. Pelvic contents otherwise unremarkable. MESENTERY AND RETROPERITONEUM: Prominent mesenteric lymph nodes right lower quadrant. No other significant abdominal or pelvic lymphadenopathy. Aorta and mesenteric vessels are unremarkable. ABDOMINAL WALL: No evidence of hernia. U nremarkable. BONES: No pathologic osseus lesions iden tified. Semi-urgent result reported to Dimitri Car on 09/08/2017 12:05 PM. IMPRESSION: 1. Acute uncomplicated appendicitis. 2. Hepatic steatosis. 3. Prominent follicle right ovary. Dimitri Car M.D. IMG CT PROCEDURES (ABNORMAL) Iris Microscopic, U (09/08/2017 11:03 AM GAUGE INSPECTOR) Analysis Performed At Patho logist Time Signature White Blood 11-20 (A) /hpf 09/08/2017 [facility] Cells 11:13 AM [facility] Comment: ----REFERENCE VALUE---- Males: 0-3 Females: 0-10 Unknown: 0-10 Red Blood Cells Occ-2 0 - 2 /hpf 09/08/2017 11:13 AM [facility] Mucus Present /hpf 09/08/2017 11:13 AM [facility] Squamous Epithelial Occ-3 /hpf 09/08/2017 11:13 AM [facility] Bacteria Present (A) None Seen 09/08/2017 11:13 AM [facility] Specimen Anatomical Collection Method Collection Time Receive d Time (Source) Location / / Volume Laterality Urine 09/08/2017 11:03 09/08/2017 AM GAUGE INSPECTOR 11:05 AM GAUGE INSPECTOR Dimitri Car M.D. LAB URINE ORDERABLES Performing Organization Address City/State/ZIP Code Phon e Number [facility] [address] [place] [address] LAB (ABNORMAL) Urinalysis with Microscopic if Indicated (09/08/2017 11:03 AM GAUGE INSPECTOR) Analysis Performed At Patho logist Time Signature Source Midstream 09/08/2017 [facility] 11:13 AM [facility] Clarity Slightly Clear 09/08/2017 [facility] Cloudy (A) 11:13 AM [facility] Color Yellow 09/08/2017 [facility] 11:13 AM [facility] Comment: ----REFERENCE VALUE---- Colorless Yellow Philomena Blood Negative Negative 09/08/2017 11:13 AM [facility] Nitrite Positive (A) Negative 09/08/2017 11:13 AM [facility] Leukocyte Esterase Moderate (A) Negative 09/08/2017 11:1 3 AM [facility] Protein, U Trace mg/dL 09/08/2017 11:13 AM [facility] Comment: ----REFERENCE VALUE---- Negative Trace Glucose Negative Negative mg/dL 09/08/2017 11:13 AM [facility] Ketone Negative Negative mg/dL 09/08/2017 11:13 AM [facility] Bilirubin Negative Negative 09/08/2017 11:13 AM [facility] pH 6.0 5.0 - 8.0 09/08/2017 11:13 AM [facility] Specific [place] 1.015 1.001 - 1.035 09/08/2017 11:13 AM [facility] Urobilinogen 0.2 0.2 - 1.0 09/08/2017 11:13 AM [facility] Specimen Anatomical Collection Method Collection Time Receive d Time (Source) Location / / Volume Laterality Urine (Urine, 09/08/2017 11:03 09/08/2017 Clean Catch) AM GAUGE INSPECTOR 11:05 AM GAUGE INSPECTOR Dimitri Car M.D. LAB URINE ORDERABLES Performing Organization Address City/State/ZIP Code Phon e Number [facility] [address] [place] [address] [facility] (ABNORMAL) CRP (C-Reactive Protein) (09/08/2017 10:50 AM GAUGE INSPECTOR) Analysis Performed At Patho logist Time Signature C-Reactive 115.8 (H) <=8.0 mg/L 09/08/2017 [facility] Protein (CRP), 11:12 AM [facility] Specimen Anatomical Collection Method Collection Time Receive d Time (Source) Location / / Volume Laterality Blood (Blood, 09/08/2017 10:50 09/08/2017 Venous) AM GAUGE INSPECTOR 10:52 AM GAUGE INSPECTOR Dimitri Car M.D. LAB BLOOD ADD-ON Performing Organization Address City/State/ZIP Code Phon e Number [address] [address] [facility] hCG (Human Chorionic Gonadotropin), Quantitative, (09/08/2017 10:50 AM GAUGE INSPECTOR) P athologist Signature HCG, <0.5 IU/L 09/08/2017 [facility] Quantitative, 11:36 AM [facility] Comment: Biotin has been identified by the doug saucedo as a potential interfering substance. ??Higher concentr ations of biotin may be found in multivitamins, hair/nail supple ments, and workout supplements. ??If the result does not ma [facility] clinical observations, repeat testing after patient refrains fr om the use of supplements for at least 12 hours. ----REFERENCE VALUE---- <5.0 Negative 5.0-25.0 Indeterminate >25.0 Positive Specimen Anatomical Collection Method Collection Time Receive d Time (Source) Location / / Volume Laterality Blood (Blood, 09/08/2017 10:50 09/08/2017 Venous) AM GAUGE INSPECTOR 10:52 AM GAUGE INSPECTOR Dimitri Car M.D. LAB BLOOD ADD-ON Performing Organization Address City/State/ZIP Code Phon e Number [facility] [address] [place] [id number] [facility] Lipase (09/08/2017 10:50 AM GAUGE INSPECTOR) P athologist Signature Lipase, P 22 13 - 60 U/L 09/08/2017 [facility] 11:13 AM [facility] Specimen Anatomical Collection Method Collection Time Receive d Time (Source) Location / / Volume Laterality Blood (Blood, 09/08/2017 10:50 09/08/2017 Venous) AM GAUGE INSPECTOR 10:52 AM GAUGE INSPECTOR Dimitri Car M.D. LAB BLOOD ADD-ON Performing Organization Address City/State/ZIP Code Phon e Number [facility] [place] [address] [facility] Lactate (09/08/2017 10:50 AM GAUGE INSPECTOR) P athologist Signature Lactate, P 0.7 0.6 - 2.3 09/08/2017 [facility] mmol/L 11:11 AM [facility] Specimen Anatomical Collection Method Collection Time Receive d Time (Source) Location / / Volume Laterality Blood (Blood, 09/08/2017 10:50 09/08/2017 Venous) AM GAUGE INSPECTOR 10:52 AM GAUGE INSPECTOR Dimitri Car M.D. LAB BLOOD NON ADD-ON Performing Organization Address City/State/ZIP Code Phon e Number [facility] [address] [place] [address] [facility] (ABNORMAL) Hepatic Function Panel (09/08/2017 10:50 AM GAUGE INSPECTOR) Patholo gist Method Time Signature Bilirubin, Total, S 1.1 <=1.2 09/08/2017 [facility] mg/dL 11:12 AM [facility] Bilirubin, Direct, S 0.2 0.0 - 0.3 09/08/2017 [facility] mg/dL 11:12 AM [facility] Aspartate 32 8 - 43 09/08/2017 [facility] Aminotransferase U/L 11:12 AM [facility] Alanine 83 (H) 7 - 45 09/08/2017 [facility] Aminotransferase U/L 11:12 AM [facility] Alkaline 101 (H) 37 - 98 09/08/2017 [facility] Phosphatase, S U/L 11:12 AM [facility] Albumin, S 3.9 3.5 - 5.0 09/08/2017 [facility] g/dL 11:12 AM [facility] Protein, Total, S 6.9 6.3 - 7.9 09/08/2017 [facility] g/dL 11:12 AM [facility] Specimen Anatomical Collection Method Collection Time Receive d Time (Source) Location / / Volume Laterality Blood (Blood, 09/08/2017 10:50 09/08/2017 Venous) AM GAUGE INSPECTOR 10:52 AM GAUGE INSPECTOR Dimitri Car M.D. LAB BLOOD ADD-ON Performing Organization Address City/State/ZIP Code Phon e Number [facility] [address] [place] [address] [facility] BMP (Basic Metabolic Panel) (09/08/2017 10:50 AM GAUGE INSPECTOR) P athologist Signature Potassium, P 4.2 3.6 - 5.2 09/08/2017 [facility] mmol/L 11:13 AM [facility] Sodium, P 135 135 - 145 09/08/2017 [facility] mmol/L 11:13 AM [facility] Chloride, P 99 98 - 107 09/08/2017 [facility] mmol/L 11:13 AM [facility] Bicarbonate, P 22 22 - 29 09/08/2017 [facility] mmol/L 11:13 AM [facility] Anion Gap, P 14 7 - 15 09/08/2017 [facility] 11:13 AM [facility] BUN (Blood Urea 7 6 - 21 09/08/2017 [facility] Nitrogen), P mg/dL 11:13 AM [facility] Creatinine 0.62 0.59 - 09/08/2017 [facility] 1.04 mg/dL 11:13 AM [facility] eGFR-Black/Afri >90 >=60 09/08/2017 [facility] can [place] mL/min/BSA 11:13 AM [facility] Comment: ----ADDITIONAL INFORMATION---- Estimated GFR calculated using the 2009 CKD_EPI creatinine equation. eGFR Non-Black/ >90 >=60 mL/min/BSA 09/08/2017 11:13 AM [facility] [place] [facility] Comment: ----ADDITIONAL INFORMATION---- Estimated GFR calculated using the 2009 CKD_EPI creatinine equation. Calcium, Total, P 9.1 8.9 - 10.1 mg/dL 09/08/2017 1 1:13 AM [facility] Glucose, P 104 70 - 140 mg/dL 09/08/2017 11:13 AM [facility] [employer] [facility] Specimen Anatomical Collection Method Collection Time Receive d Time (Source) Location / / Volume Laterality Blood (Blood, 09/08/2017 10:50 09/08/2017 Venous) AM GAUGE INSPECTOR 10:52 AM GAUGE INSPECTOR Dimitri Car M.D. LAB BLOOD ADD-ON Performing Organization Address City/State/ZIP Code Phon e Number [facility] [address] [place] [facility] [place] [address] [facility] (ABNORMAL) CBC with Differential (09/08/2017 10:50 AM GAUGE INSPECTOR) [facility] Method Time Signature Hemoglobin 12.3 11.6 - 09/08/2017 [facility] 15.0 g/dL 10:56 AM [facility] Hematocrit 37.8 35.5 - 09/08/2017 [facility] 44.9 % 10:56 AM [facility] Erythrocytes 4.60 3.92 - 09/08/2017 [facility] 5.13 10:56 AM [facility] x10(12)/L [facility] MCV 82.2 78.2 - 09/08/2017 [facility] 97.9 fL 10:56 AM [facility] RBC Distrib Width 13.9 12.2 - 09/08/2017 [facility] 16.1 % 10:56 AM [facility] Platelet Count 293 157 - 371 09/08/2017 [facility] x10(9)/L 10:56 AM [facility] Leukocytes 15.8 (H) 3.4 - 9.6 09/08/2017 [facility] x10(9)/L 10:56 AM [facility] Neutrophils 13.48 (H) 1.56 - 09/08/2017 [facility] 6.45 10:56 AM [facility] x10(9)/L [facility] [employer] [facility] Lymphocytes 1.35 0.95 - 09/08/2017 [facility] 3.07 10:56 AM [facility] x10(9)/L [facility] Monocytes 0.87 (H) 0.26 - 09/08/2017 [facility] 0.81 10:56 AM [facility] x10(9)/L [facility] Eosinophils 0.04 0.03 - 09/08/2017 [facility] 0.48 10:56 AM GAUGE INSPECTOR HEALTH x10(9)/L [facility] Basophils 0.03 0.01 - 09/08/2017 [facility] 0.08 10:56 AM GAUGE INSPECTOR HEALTH x10(9)/L [facility] Specimen Anatomical Collection Method Collection Time Receive d Time (Source) Location / / Volume Laterality Blood (Blood, 09/08/2017 10:50 09/08/2017 Venous) AM GAUGE INSPECTOR 10:52 AM GAUGE INSPECTOR Dimitri Car M.D. LAB BLOOD ADD-ON Performing Organization Address City/State/ZIP Code Phon e Number [facility] [address] [place] [address] [facility] documented in this encounter Visit Diagnoses Diagnosis Appendicitis Acute - Primary Appendicitis Acute Appendicitis Acute documented in this encounter Administered Medications Inactive Administered Medications - up to 3 most recent administrations Medication Order MAR Action Action Date Dose Rate Site ciprofloxacin in D5W IVPB New Bag 09/08/2017 12:29 PM 400 mg 2 00 mL/hr Right Hand 400 mg (for_CIPRO) GAUGE INSPECTOR 400 mg, intravenous, at 200 mL/hr, Administer over 60 Minutes, Once, On Wed09/08/17 at 1216, For 1 dose, premix bag, Drug Monitoring Program: Pharmacist to adjust medication order based on comorbities and indication., Indications: Appendicitis ciprofloxacin in D5W IVPB New Bag 09/09/2017 12:23 AM 400 mg 2 00 mL/hr Right Hand 400 mg (for_CIPRO) GAUGE INSPECTOR 400 mg, intravenous, at 200 mL/hr, Administer over 60 Minutes, Once, On Wed09/09/17 at 0030, For 1 dose, Start within 12 hours of last dose. premix bag, Drug Monitoring Program: Pharmacist to adjust medication order based on comorbities and indication., Indications: Prophylaxis, surgical heparin (porcine) 5,000 Given 09/08/2017 2:43 PM GAUGE INSPECTOR 5,000 Units Abdominal Tissue unit/0.5 mL injection - ADS Override Pull Starting on Wed09/08/17 at 1426, For 1 dose, Created by cabinet override heparin (porcine) Given 09/09/2017 9:14 AM GAUGE INSPECTOR 7,500 Units Left Lower Abdomen injection 7,500 Units 7,500 Units, subcutaneous, 3 times daily, First dose on Wed09/09/17 at 0145 Given 09/09/2017 1:48 AM GAUGE INSPECTOR 7,500 Units Right Lower Abdomen HYDROmorphone injection 0.5 mg (for_DILA UDID) Given 09/08/2017 2:40 PM GAUGE INSPECTOR 0.5 mg 0.5 mg, intravenous, Every 1 hour PRN, moderate pain or score 4-6 of 10, Starting on Wed09/08/17 at 1253 iohexol 350 mg iodine/mL solution Given 09/08/2017 11:54 AM GAUGE INSPECTOR 171 mL Right Hand 171 mL (for_OMNIPAQUE) 171 mL, intravenous, Once in imaging, contrast, Starting on Wed09/08/17 at 1059, For 1 dose ketorolac injection 30 mg Given 09/08/2017 10:57 AM GAUGE INSPECTOR 30 mg Right Hand (for_TORADOL) 30 mg, intravenous, Once, On Wed09/08/17 at 1040, For 1 dose, Adult IV push rate: Over 15 seconds. Peds IV push rate: Over 1 minute. 60 mg dose only for IM, not recommended for IV., Drug Monitoring Program: Pharmacist to adjust medication order based on comorbities and indication. lactated ringers New Bag 09/08/2017 2:50 PM GAUGE INSPECTOR 20 mL/hr 20 mL/hr 20 mL/hr, intravenous, Continuous, Starting on Wed09/08/17 at 1430, Pre-Op lactated ringers Rate/Dose Verify 09/08/2017 10:00 PM GAUGE INSPECTOR 75 mL/hr 75 mL/hr 75 mL/hr, intravenous, Continuous, Starting on Wed09/08/17 at 2000 New Bag 09/08/2017 7:55 PM GAUGE INSPECTOR 75 mL/hr 75 mL/hr lidocaine 50 mL, bupivacaine PF Given 09/08/2017 5:17 PM GAUGE INSPECTOR 9 m L Abdominal Tissue 50 mL 100 mL injection As needed, Starting on Wed09/08/17 at 1717, Intra-Op metroNIDAZOLE in NaCl (iso-osm) New Bag 09/08/2017 1:39 PM GAUGE INSPECTOR 500 mg 200 mL/hr IVPB 500 mg (for_FLAGYL) 500 mg, intravenous, at 200 mL/hr, Administer over 30 Minutes, Once, On Wed09/08/17 at 1210, For 1 dose, Indications: Appendicitis metroNIDAZOLE in NaCl (iso-osm) New Bag 09/09/2017 5:36 AM GAUGE INSPECTOR 500 mg 200 mL/hr IVPB 500 mg (for_FLAGYL) 500 mg, intravenous, at 200 mL/hr, Administer over 30 Minutes, Every 8 hours, First dose on Wed09/08/17 at 2145, For 2 doses, Start within 8 hours of last dose., Indications: Prophylaxis, surgical New Bag 09/08/2017 9:25 PM GAUGE INSPECTOR 500 mg 200 mL/hr morphine injection 4 mg Given 09/08/2017 10:57 AM GAUGE INSPECTOR 4 mg 4 mg, intravenous, Every 20 min PRN, moderate pain or score 4-6 of 10, severe pain or score 7-10 of 10, Starting on Wed09/08/17 at 1038, For 3 doses NaCl 0.9 % bolus 1,000 New Bag 09/08/2017 10:58 AM 1,000 mL 2000 mL/hr Right Hand mL GAUGE INSPECTOR 1,000 mL, intravenous, at 2,000 mL/hr, Administer over 0.5 Hours, Once, On Wed09/08/17 at 1040, For 1 dose NaCl 0.9% infusion New Bag 09/08/2017 11:27 AM 1,000 mL/hr 1000 mL/hr Right Aiken nd 1,000 mL/hr, GAUGE INSPECTOR intravenous, Continuous, Starting on Wed09/08/17 at 1040, For Hydration ondansetron (PF) injection 4 mg (for_ZOF RAN) Given 09/08/2017 2:51 PM GAUGE INSPECTOR 4 mg 4 mg, intravenous, Every 20 min PRN, nausea, vomiting, Starting on Wed09/08/17 at 1038, For 2 doses Given 09/08/2017 10:57 AM GAUGE INSPECTOR 4 mg ondansetron (PF) injection 4 mg (for_ZOF RAN) 4 mg, intravenous, Every 6 hours PRN, na usea, vomiting, Starting on Wed09/08/17 at 1254 oxyCODONE IR tablet 5 mg (for_ROXICODONE ) Given 09/09/2017 5:45 AM GAUGE INSPECTOR 5 mg 5 mg, oral, Every 4 hours PRN, mild pain or score 1-3 of 10, Starting on Wed09/08/17 at 1839 Given 09/09/2017 12:40 AM GAUGE INSPECTOR 5 mg sodium chloride 0.9 % injection 10 mL 10 mL, intravenous, As needed, line care, Starting on Wed09/08/17 at 1037, Peripheral Intravenous Catheter and Rapid Infusion Cat heter, prior to blood sampling, post blood transfusion or post blood samplin g sodium chloride 0.9 % injection 10 Given 09/08/2017 11:55 AM GAUGE INSPECTOR 10 mL Right Hand mL 10 mL, intravenous, Once in imaging, line care, Starting on Wed09/08/17 at 1107, For 1 dose sodium chloride 0.9 % injection 3 mL 3 mL, intravenous, As needed, line care, Starting on Wed09/08/17 at 1037, Prior to and following infusion and between multi ple consecutive infusions: sodium chloride 0.9 % injection sodium chloride 0.9 % injection 3 mL 3 mL, intravenous, Every 12 hours scheduled, First dos e on Wed09/08/17 at 2100, Peripheral Intravenous Catheter and Rapi d Infusion Catheter, when no infusion to maintain patency sodium chloride 0.9 % injection 80 Given 09/08/2017 11:09 AM GAUGE INSPECTOR 80 mL Right Hand mL 80 mL, intravenous, Once, On Wed09/08/17 at 1109, For 1 dose documented in this encounter Active and Recently Administered Medications Times are shown in GAUGE INSPECTOR. Scheduled Medication Order 09/07/2017 09/08/2017 09/09/2017 ciprofloxacin in D5W IVPB 400 mg (for_CIPRO) (COMPLETED) 1229 (New Bag - Provider: Keiry Perales RRoverto)1330 (Stopped - Provider: Keiry Perales R.N.) 400 mg, intravenous, at 200 mL/hr, Admin ister over 60 Minutes, Once, Wed09/08/17 at 1216, For 1 dose, premix bag, Drug Monitoring Program: Pharmacist to adjust medication order based on comorbities and indication., Indications: Appendicitis ciprofloxacin in D5W IVPB 400 mg (for_CIPRO) (COMPLETED) 0023 (New Bag - Provider: Suni Perales R.N.) 400 mg, intravenous, at 200 mL/hr, Admin ister over 60 Minutes, Once, Bryanna 09/09/17 at 0030, For 1 dose, Start within 12 hours of last dose. premix bag, Drug Monitoring Program: Pharmacist to adjust medica tion order based on comorbities and ernesto cation., Indications: Prophylaxis, Surgical heparin (porcine) injection 7,500 Units 0148 (Given - Provider: Suni Perales R.N.)0914 (Given - Provider: Kiera Bush R.N.) 7,500 Units, subcutaneous, 3 times daily, First dose on Bryanna 09/09 at 0145 ketorolac injection 30 mg (for_TORADOL) (COMPLETED) 1057 (Given - Provider: Keiry Perales R.N.) 30 mg, intravenous, Once, Wed09/08/17 at 1040, For 1 dose, Adult IV push rate: Over 15 seconds. Peds IV push rate: Over 1 minute. 60 mg dose only for IM, not recommended for IV., Drug Monitoring Program : Pharmacist to adjust medication order based on comorbities and indication. lactated Ringer's bolus 500 mL 1999 (Can celed Entry - Provider: Charline Lundberg R.N. - Comment: [facility].O[facility]ittaney not to give had difficulity removing order) 500 mL, intravenous, at 250 mL/hr, Admin ister over 2 Hours, Once, Wed09/08/17 at 2000, For 1 dose metroNIDAZOLE in NaCl (iso-osm) IVPB 500 mg (for_FLAGYL) (CO MPLETED) 1339 (New Bag - Provider: Keiry Perales R.N.)1401 (Stopped - Provider: Keiry Perales R.N.) 500 mg, intravenous, at 200 mL/hr, Admin ister over 30 Minutes, Once, Wed09/08/17 at 1210, For 1 dose, Indications: Appendicitis metroNIDAZOLE in NaCl (iso-osm) IVPB 500 mg (for_FLAGYL) (CO MPLETED) 2125 (New Bag - Provider: Charline Lundberg R.N.) 0536 (New Bag - Provider: Suni madrid R.NBrittaney) 500 mg, intravenous, at 200 mL/hr, Admin ister over 30 Minutes, Every 8 hours, First dose on Wed09/08/17 at 2145, For 2 doses, Start within 8 hours of last dose., Indications: Prophylaxis, Surgical NaCl 0.9 % bolus 1,000 mL (COMPLETED) 10 58 (New Bag - Provider: Keiry Perales R.N.)1127 (Stopped - Provider: Keiry Perales R.N.) 1,000 mL, intravenous, at 2,000 mL/hr, A dminister over 0.5 Hours, Once, Wed09/08/17 at 1040, For 1 dose sodium chloride 0.9 % injection 3 mL 140 8 (OCT Hold - Provider: Transfer Provider, Automatic - Reason: Patient not available)1811 (OCT Unhold - Provider: Transfer Provider, Automatic)2100 (Not Given - Provider: Charline Lundberg R.N. - Reason: Other - Comment: IV indusing) 0900 (Due - Provider: Transfer Provider, Automatic) 3 mL, intravenous, Every 12 hours schedu led, First dose on Wed09/08/17 at 2100, Peripheral Intravenous Catheter and Rapid Infusion Catheter, when no infusion to maintain patency sodium chloride 0.9 % injection 80 mL (COMPLETED) 1109 (Given - Provider: Marlene Krishnamurthy(R)(CT), R.TBrittaney(R)) 80 mL, intravenous, Once, Wed09/08/17 at 1109, For 1 dose Continuous Medication Order 09/07/2017 09/08/2017 09/09/2017 lactated ringers (CANCELED) 1450 (New Bag - Prov ider: Zelda Vilchis RBrittaneyNBrittaney) 20 mL/hr, intravenous, at 20 mL/hr, Cont inuous, Starting Wed09/08/17 at 1430, Pre-Op lactated ringers 1955 (New Bag - Prov ider: Charline Lundberg R.N.)2200 (Rate/Dose Verify - Provider: Charline Lundberg R.N.) 75 mL/hr, intravenous, at 75 mL/hr, Continuous, Starting 08/23 at 2000 NaCl 0.9% infusion 1127 (New Bag - Prov ider: Keiry Perales RRoverto)1401 (Stopped - Provider: Keiry Perales R.N.) 1,000 mL/hr, intravenous, at 1,000 mL/hr , Continuous, Starting Wed09/08/17 at 1040, For Hydration PRN Medication Order 09/07/2017 09/08/2017 09/09/2017 dexamethasone injection 4 mg (for_DECADRON) 4 mg, intravenous, Once as needed, nause a, vomiting, Starting Wed09/08/17 at 1839, For 1 dose, Give only if NOT given during the pre or intraoperative period. If ondansetron ordered, give dexamethasone with first dose of ondansetron. droperidol injection 0.625 mg (for_INAPSINE) 0.625 mg, intravenous, Every 6 hours PRN , nausea, vomiting, Starting Wed09/08/17 at 1839, For 48 hours, Total of 3 doses in 24 hour period. RASS must be -2 or higher to administer. Reassess for nausea o r vomiting after at least 10 minutes. If nausea or vomiting persists administer next ordered antiemetic medications (order for antiemetic medication administration ondansetron then droperidol then promethazine). HYDROmorphone injection 0.5 mg (for_DILAUDID) 1408 ([facility] Hold - Provider: Transfer Provider, Automatic - Reason: Patient not available)1440 (Given - Provider: Zelda Vilchis RBrittaneyNBrittaney)181 ([facility] Unhold - Provider: Transfer Provider, Automatic) 0.5 mg, intravenous, Every 1 hour PRN, m oderate pain or score 4-6 of 10, Starting Wed09/08/17 at 1253 HYDROmorphone injection 1 mg (for_DILAUDID) 1 mg, intravenous, Every 2 hour PRN, sev ere pain or score 7-10 of 10, breakthrough pain, Starting Wed09/08/17 at 1839, For breakthrough pain unrelieved 30 minutes after PRN oral pain medication is used; or if unable to take oral pain medication. iohexol 350 mg iodine/mL solution 171 mL (for_OMNIPAQUE) (CO MPLETED) 1119 (Due)1154 (Given - Provider: Sarah Vance, R.T.(R)(CT), R.T.(R)) 171 mL, intravenous, Once in imaging, co ntrast, Starting Wed09/08/17 at 1059, For 1 dose lidocaine 50 mL, bupivacaine PF 50 mL 100 mL injection (CAN ELED) 1717 (Given - Provider: Jaquan Monahan D.O.) As needed, Starting Wed09/08/17 at 1717, Intra-Op morphine injection 4 mg 1057 (Given - Pr ovider: Keiry Perales R.NBrittaney)1408 ([facility] Hold - Provider: Transfer Provider, Automatic - Reason: Patient not available)181 ([facility] Unhold - Provider: Transfer Provider, Automatic) 4 mg, intravenous, Every 20 min PRN, mod erate pain or score 4-6 of 10, severe pain or score 7-10 of 10, Starting Wed09/08/17 at 1038, For 3 doses naloxone injection 0.2 mg (for_NARCAN) 0.2 mg, intravenous, As needed, respirat ory depression, Starting Wed09/08/17 at 1839, For respiratory rate less than 8 breaths per minute or RASS score of -3, - 4, -5. Apply oxygen to keep oxygen saturations greater than 90% and notify service. ondansetron (PF) injection 4 mg (for_ZOFRAN) (COMPLETED) 1057 (Given - Provider: eKiry Perales R.N.)1408 (OCT Hold - Provider: Transfer Provider, Automatic - Reason: Patient not available)1451 (Given - Provider: Zelda Vilchis R.N.)1811 (OCT Unhold - Provider: Transfer Provider, Automatic) 4 mg, intravenous, Every 20 min PRN, [place], vomiting, Starting Wed09/08/17 at 1038, For 2 doses ondansetron (PF) injection 4 mg (for_ZOFRAN) 1408 (OCT Hold - Provider: Transfer Provider, Automatic - Reason: Patient not available)1448 (Dose Auto Held)181 (OCT Unhold - Provider: Transfer Provider, Automatic) 4 mg, intravenous, Every 6 hours PRN, na usea, vomiting, Starting Wed09/08/17 at 1254 ondansetron (PF) injection 4 mg (for_ZOFRAN) 4 mg, intravenous, Every 6 hours PRN, na usea, vomiting, Starting Wed09/08/17 at 1839, For 48 hours, Reassess for nausea or vomiting after at least 10 minutes. If nausea or vomiting persists administer n ext ordered antiemetic medications (orde r for antiemetic medication administration ondansetron then droperidol then promethazine). oxyCODONE IR tablet 5 mg (for_ROXICODONE) 0040 (Given - Provider: Suni Perales R.N.)0545 (Given - Provider: Suni Perales R.N.) 5 mg, oral, Every 4 hours PRN, mild pain or score 1-3 of 10, Starting Wed09/08/17 at 1839 promethazine injection 6.25 mg (for_PHENERGAN) 6.25 mg, intravenous, Every 6 hours PRN, nausea, vomiting, Starting Wed09/08/17 at 1839, For 48 hours, RASS must be -2 or higher to administer. Reassess for nausea/vomiting after at least 10 minutes. If nausea or vomiting persists administer next ordered antiemetic medications (order for antiemetic medication administration ondansetron then droperidol then promethazine). If given IV push: Administer no more than 12.5 mg over 2 minutes. sodium chloride 0.9 % injection 10 mL 14 08 (OCT Hold - Provider: Transfer Provider, Automatic - Reason: Patient not available)1811 (OCT Unhold - Provider: Transfer Provider, Automatic) 10 mL, intravenous, As needed, line care , Starting Wed09/08/17 at 1037, Peripheral Intravenous Catheter and Rapid Infusion Catheter, prior to blood sampling, post blood transfusion or post blood sampling sodium chloride 0.9 % injection 10 mL (COMPLETED) 1155 (Given - Provider: Marlene Krishnamurthy(R)(CT), R.TBrittaney(R)) 10 mL, intravenous, Once in imaging, kody e care, Starting Wed09/08/17 at 1107, For 1 dose sodium chloride 0.9 % injection 3 mL 140 8 (OCT Hold - Provider: Transfer Provider, Automatic - Reason: Patient not available)1811 (OCT Unhold - Provider: Transfer Provider, Automatic) 3 mL, intravenous, As needed, line care, Starting Wed09/08/17 at 1037, Prior to and following infusion and between multiple consecutive infusions: sodium chloride 0.9 % injection No Frequency Medication Order 09/07/2017 09/08/2017 09/09/2017 heparin (porcine) 5,000 unit/0.5 mL injection - ADS Override Pull (COMPLETED) 1443 (Given - Provider: Zelda Vilchis, RBrittaneyNBrittaney) Starting Wed09/08/17 at 1426, For 1 dose, Created by edmar campa documented in this encounter Additional Health Concerns Assessment Noted Time PHQ-9 Depression Total Score: 7 04/07/2017 9:39 AM CDT documented as of this encounter Care Teams Outside Food 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 PCP - General 02/04/17 04/26/19 documented as of this encounter
--- OUTSIDE RECORDS SUMMARY | 2022-06-29 09:30 | XMS_ITS | Encounter Summary ---
:1985 Author Organization [facility] Address [address] [place] [address] Care Team Providers Name Role Phone Blaire Bundy P.A.-C. Primary Care Provider Reason for Visit Reason Onset Date Comments Post Hospital Follow-up 09/09/2017 [place] 09/09/17 Encounter Details Date Type Department Care Team Description 09/09/2017 Clinical Communication Department of [facility], Barbara Barrett R.N. Follow-up ([place] [id number] 09/09/17) Clinic, in [address] [id number] [facility] [phone] [place], [place] (Work) [phone] Social History Tobacco Use [...] or relatives? How often do you attend advent or judaism More than 4 time s per year 07/09/2020 services? Do you belong to any clubs or organizations No 04/19/2019 such as advent groups, unions, fraternal or athletic groups, or [...] Telephone Encounter - Suellen Beasley R.N. - 09/10/2017 9:04 AM CST @SUBJECTIVEBEGIN@ REASON FOR CALL Post-Hospital follow-up phone call with patient after Carol Cooley discharge on 09/09/17 for 1230. General Health Carol Cooley notes today she is feeling better than when she left the hospital. She is still having some nausea but is able to keep down fluids and food. She denies any fever. She is also wondering about her surgical sites as one is scabbing and feeling like a scab is going to fall off. Reviewed s igns/symptoms of infection with patient to watch for and incision care. Patient confirms that the condition for which she was admitted has improved. Home management assessment post discharge: Patient states she is doing okay, but has a few questionsand concerns. Reviewed incision care with patient.. OK to get wet in shower once incision is closed,no soaking in the tub until all incisions are completely healed over and no scrubbing of the incision sites. Actions taken: home care instructions reinforced or provided Infection related to a resistant organism: no Surgical/Procedural Follow-up Medication Status Medication status assessment: is taking new medications as prescribed Medication management: Patient states medication is self managed. MTM Referral warranted: no Patient's understanding of medication's side effects: Patient recalls and understands all side effects and reactions relating to new medication(s). Medications concerns: none Is patient taking any of the following: Controlled substances: yes, however did not fill as pain is being controlled by Ibuprofen and Tylenol. Taking as instructed: n/a Experiencing side effects: n/a Antibiotics: yes Labs scheduled: no Taking as instructed:yes Experiencing side effects: yes, side effects are nausea. Encouraged patient to take with food and incorperate yogurt if able. Diabetic medications: no Anticoagulants: no Home Care/Equipment Home care ordered: no Activities of Daily Living Has activities of daily living changed since hospitalization: no Ambulation Has ambulation changed since hospitalization: no Difficulty ambulating: no Follow-Up Appointment Follow-up appointment scheduled? 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 Reason for hospitalization Admission PRINCIPAL DIAGNOSIS Appendicitis Acute. Follow up scheduled for 09/20/17 @ [address] Reyna (surgical f/u). 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 PCP - General 02/04/17 04/26/19 documented as of this encounter
--- OUTSIDE RECORDS SUMMARY | 2022-06-29 09:30 | XMS_ITS | Encounter Summary ---
:1985 Author Organization [facility] Address [address] [place] [address] Care Team Providers Name Role Phone Blaire Bundy P.A.-C. Primary Care Provider Reason for Referral Outpatient (Routine) - Closed Specialty Diagnoses / Procedures Referred By Contact Refer red To Contact General Surgery Diagnoses Appendicitis Acute Par Review Seng Reyna M.D. [facility] Region Procedures GNS POST OP [address] [place] [address] Referral ID Status Reason Start Date Expiration Date Visits Requ ested Visits Authorized [id number] Closed 09/09/2017 03/08/2018 1 1 Scheduling Instructions To see Dr. Monahan 09/15/2016 in [place] . MIXER HELPER Reason for Visit Reason Comments Abdominal Pain [...] Expiration Date Visits Requ ested Visits Authorized [id number] 1 1 Encounter Details Date Type Department Care Team Description 09/08/2017 - Emergency [facility], Natalie Car M.D. [address] [place] [phone] Appendicitis Acute 09/09/2017 [facility] Taryn Helm M.D. [address] [place] [address] (Primary Dx) Center, Third Floor Jaquan Monahan D.O. [address] [place] [address] [place] [address] [address] [place] [address] Social History Tobacco Use Types [...] or relatives? How often do you attend taoism or druze More than 4 time s per year 07/09/2020 services? Do you belong to any clubs or organizations No 04/19/2019 such as taoism groups, unions, fraternal or athletic groups, or [...] Sign Reading Time Taken Comments Blood Pressure 126/63 09/09/2017 10:22 AM MUD MIXER HELPER Pulse 79 09/09/2017 10:22 AM MUD MIXER HELPER Temperature 36.7 ??C (98.1 ??F) 09/09/2017 10:22 AM MUD MIXER HELPER Respiratory Rate 18 09/09/2017 10:22 AM MUD MIXER HELPER Oxygen Saturation 94% 09/09/2017 10:22 AM MUD MIXER HELPER Inhaled Oxygen Concentration - - Weight 145 kg (319 lb 10.7 oz) 09/08/2017 2:13 PM MUD MIXER HELPER Height 157.5 cm (5' 2) 09/08/2017 10:09 AM MUD MIXER HELPER Body Mass Index 58.47 09/08/2017 10:09 AM MUD MIXER HELPER documented in this encounter Discharge Summaries Seng Reyna M.D. - 09/09/2017 9:51 AM CST INPATIENT DISCHARGE SUMMARY BRIEF OVERVIEW Discharge Provider: Taryn Ozuna M.D. Primary Care Providers: Blaire Thornton P.A.-C. (General) [address] [place] [phone] Primary Care Provider Primary Care Provider Other Providers: Admission Date: 09/08/2017 Discharge Date: 09/09/2017 PRINCIPAL DIAGNOSIS Appendicitis Acute SECONDARY DIAGNOSES Principal Problem: Appendicitis Acute Resolved Problems: * No resolved hospital problems. * Operative Procedures: Scheduled (Blank), Completed (Comp) or Canceled (Can) Case IDs Date Procedure Surgeon Location Status [id number] 09/08/17 LAPAROSCOPIC APPENDECTOMY Jaquan Monahan D.O. [facility] OR Comp DISCHARGE DISPOSITION Home or Self Care [1] ACTIVE ISSUES REQUIRING FOLLOW UP Surgical Pathology OUTPATIENT FOLLOW UP No future appointments. TEST RESULTS PENDING AT DISCHARGE Pending Labs Order Current Status Pathology Services Collected (09/08/17 1708) DISCHARGE MEDICATIONS Your medication list START taking [...] Your Medications These medications were sent to [facility] - [address] [address] ?? ciprofloxacin 500 mg tablet ?? metroNIDAZOLE [...] ADMISSION ANESTHESIA FOLLOW-UP CONDITION AT DISCHARGE improved MIXER HELPER documented in this encounter Discharge Instructions AttachmentsThe following attachments cannot be sent through Care Everywhere.Care Following Your Laparoscopy (Azeri)documented in this encounter Medications at Time [...] /or at baseline Post Op nausea/vomiting: none MIXER HELPER documented in this encounter H&P Notes Jaquan [...] or fallopian tube. She gives informed consent. MIXER HELPER documented in this encounter Nursing Notes Kiera [...] mucous membranes remain intact Adequate for Discharge Suni Ryan R.N. - 09/09/2017 2:12 AM CST DISCHARGE [...] this is a recent diagnosis for her. Charline Suero R.N. - 09/08/2017 9:42 PM CST DISCHARGE [...] o-1 Refuses pain medication at this time MIXER HELPER documented in this encounter OR Notes Op Note - Jaquan Monahan D.O. - 09/08/2017 4:35 PM CST FULL OP NOTE Procedure(s): LAPAROSCOPIC APPENDECTOMY Surgeon(s) and Role: * Jaquan Monahan D.O. - Primary Barback: Lior PerezPBrittaneyNBrittaney; Nichole Allen L.P.N. Anesthesia Type: General Pre-Operative [...] Appendix PATHOLOGY SERVICES Jaquan Monahan D.O. 09/08/2017 1704 Drains Indwelling Urinary Catheter Double-lumen 16 Fr. (Active) Estimated Blood Loss No blood loss documented. Implants * No implants in log * Jaquan Monahan D.O. MIXER HELPER Brief Op Note - Jaquan Monahan D.O. [...] implants in log * Jaquan Monahan D.O. MIXER HELPER documented in this encounter ED Notes Dimitri [...] surgery.. ED Course as of Sep 08 2138WedSep 08, 2017 1123 The C-reactive protein is [...] for admission. He will contact the nursing supervisor filter assembly to determine a plan of when surgery [...] was going to talk with the nursing supervisor filter assembly and the operating room about the plan [...] accurate and complete. Dimitri Car M.D. 09/08/172138 MIXER HELPER documented in this encounter Plan of Treatment Scheduled Procedures Name Priority Associated Diagnoses Date/Time COLONOSCOPY Diarrhea Scheduled Referrals Name Type Priority Associated Diagnoses Order S [facility] Surgery Outpatient Referral Routine Appendicitis Acute Expected: Post Op (clinic) 09/15/2017 (Approximate), Expires: 09/09/2020 documented as of this encounter Procedures Procedure Name Priority Date/Time Associated Comments Diagnosis CBC WITH Routine 09/09/2017 7:05 Results for DIFFERENTIAL, B AM MUD MIXER HELPER this procedu re are in the results section. INCENTIVE Routine 09/08/2017 6:39 SPIROMETRY - RT/RN PM MUD MIXER HELPER INCENTIVE Routine 09/08/2017 6:39 SPIROMETRY - RT/RN PM MUD MIXER HELPER INCENTIVE Routine 09/08/2017 6:39 SPIROMETRY - RT/RN PM MUD MIXER HELPER INCENTIVE Routine 09/08/2017 6:39 SPIROMETRY - RT/RN PM MUD MIXER HELPER INCENTIVE Routine 09/08/2017 6:39 SPIROMETRY - RT/RN PM MUD MIXER HELPER INCENTIVE Routine 09/08/2017 6:39 SPIROMETRY - RT/RN PM MUD MIXER HELPER INCENTIVE Routine 09/08/2017 6:39 SPIROMETRY - RT/RN PM MUD MIXER HELPER INCENTIVE Routine 09/08/2017 6:39 SPIROMETRY - RT/RN PM MUD MIXER HELPER INCENTIVE Routine 09/08/2017 6:39 SPIROMETRY - RT/RN PM MUD MIXER HELPER INCENTIVE Routine 09/08/2017 6:39 SPIROMETRY - RT/RN PM MUD MIXER HELPER INCENTIVE Routine 09/08/2017 6:39 SPIROMETRY - RT/RN PM MUD MIXER HELPER ADULT OXYGEN Routine 09/08/2017 5:43 THERAPY PM MUD MIXER HELPER PATHOLOGY SERVICES Routine 09/08/2017 5:08 Appendicitis Acute Results for PM MUD MIXER HELPER this procedure are in the results section. LAPAROSCOPIC 09/08/2017 4:06 Appendicitis Acute APPENDECTOMY PM MUD MIXER HELPER CT ABDOMEN PELVIS RAD - Semiurgent 09/08/2017 11:53 Re sults for WITH IV CONTRAST (Fast; most ED AM MUD MIXER HELPER this proc edure patients; some are in the inpatients) results section. IRIS MICROSCOPIC, U STAT 09/08/2017 11:03 Resu lts for AM MUD MIXER HELPER this procedure are in the results section. URINALYSIS WITH STAT 09/08/2017 11:03 Results for MICROSCOPIC IF AM MUD MIXER HELPER this procedur e INDICATED, U are in the results section. HEPATIC FUNCTION STAT 09/08/2017 10:50 Results for PANEL, S AM MUD MIXER HELPER this procedure are in the results section. CBC WITH STAT 09/08/2017 10:50 Results for DIFFERENTIAL, B AM MUD MIXER HELPER this procedu re are in the results section. C-REACTIVE PROTEIN STAT 09/08/2017 10:50 Resul ts for (CRP), S/P AM MUD MIXER HELPER this procedure are in the results section. HUMAN CHORIONIC STAT 09/08/2017 10:50 Results for GONADOTROPIN (HCG), AM MUD MIXER HELPER this pro cedure MARCI, are in the results section. LIPASE, S/P STAT 09/08/2017 10:50 Results for AM MUD MIXER HELPER this procedure are in the results section. LACTATE, B/P STAT 09/08/2017 10:50 Results for AM MUD MIXER HELPER this procedure are in the results section. BASIC METABOLIC STAT 09/08/2017 10:50 Results for PANEL, S/P AM MUD MIXER HELPER this procedure are in the results section. documented in this encounter Results (ABNORMAL) CBC with Differential (09/09/2017 7:05 AM MUD MIXER HELPER) [facility] Method Time Signature Hemoglobin 11.1 (L) 11.6 - 09/09/2017 [facility] 15.0 g/dL 7:11 AM [employer] [facility] [employer] [facility] Hematocrit 34.8 (L) 35.5 - 09/09/2017 [facility] 44.9 % 7:11 AM [employer] [facility] Erythrocytes 4.18 3.92 - 09/09/2017 [facility] 5.13 7:11 AM [employer] x10(12)/L [employer] [facility] [employer] [facility] MCV 83.3 78.2 - 09/09/2017 [facility] 97.9 fL 7:11 AM [employer] [facility] RBC Distrib Width 13.6 12.2 - 09/09/2017 [facility] 16.1 % 7:11 AM [employer] [facility] Platelet Count 263 157 - 371 09/09/2017 [facility] x10(9)/L 7:11 AM [facility] Leukocytes 11.8 (H) 3.4 - 9.6 09/09/2017 [facility] x10(9)/L 7:11 AM [facility] Neutrophils 10.54 (H) 1.56 - 09/09/2017 [facility] 6.45 7:11 AM [facility] x10(9)/L SYSTEM- [facility] Lymphocytes 0.65 (L) 0.95 - 09/09/2017 [facility] 3.07 7:11 AM [facility] x10(9)/L SYSTEM- [facility] Monocytes 0.57 0.26 - 09/09/2017 [facility] 0.81 7:11 AM [facility] x10(9)/L [facility] Eosinophils 0.01 (L) 0.03 - 09/09/2017 [facility] 0.48 7:11 AM [facility] x10(9)/L [facility] Basophils 0.01 0.01 - 09/09/2017 [facility] 0.08 7:11 AM [facility] x10(9)/L [facility] [place] [facility] Specimen Anatomical Collection Method Collection Time Receive d Time (Source) Location / / Volume Laterality Blood (Blood, 09/09/2017 7:05 AM 09/09/19 7:08 Venous) MUD MIXER HELPER AM MUD MIXER HELPER Jaquan Monahan D.O. LAB BLOOD ADD-ON Performing Organization Address City/State/ZIP Code Phon e Number [facility] [address] [place] [address] [facility] Pathology Services (09/08/2017 5:08 PM MUD MIXER HELPER) Component Value Ref Test Analysis Performed At [facility] Range Method Time Signature PATHOLOGY Patient Name: PUNEET CLAYTON LUZ ELENA [facility] SERVICES MR#: [id number] LAUREL Submitting Physician: JAQUAN MONAHAN DO [id number] Specimen #[id number] Performing Lab: ??[facility] ? [address] [facility] [address] Source: Appendix Clinical History/Pre-Op Appendicitis acute [K35.80] Gross Description Labeled appendix consists of a 6.1 cm in length x 1.2 cm in diameter appendix, with attached mesoappendix ( 2.4 cm). ??The serosa is gatica-brown with focal areas of white exudate. ??The muco sa is red-brown hemorrhagic to necrotic. ??An area of disruption is not grossly id entified. ??[employer] sections are submitted in cassette A1. KG/ed ?? Diagnosis Appendix, appendectomy: ACUTE APPENDICITIS WITH PERIAPPENDICITIS. Electronically Signed By JANNET HERNÁNDEZ MD - 09/10/2017 ed/09/10/2017 Specimen (Source) Anatomical Collection Method Collection Time Re ceived Time Location / / Volume Laterality Tissue (Appendix) 09/08/2017 5:08 PM MUD MIXER HELPER Comment: Acute appendicitis Jaquan Monahan D.O. LAB SURG PATH ORDERABLES Performing Organization Address City/State/ZIP Code Phon e Number [facility] [address] [place] [address] CT Abdomen Pelvis with IV Contrast (09/08/2017 11:53 AM MUD MIXER HELPER) Anatomical Region Laterality Modality Abdomen, Pelvis N/A Computed Tomography Specimen (Source) Anatomical Collection Method Collection Time Re ceived Time Location / / Volume Laterality 09/08/2017 12:00 PM MUD MIXER HELPER Impressions 09/08/2017 12:07 PM MUD MIXER HELPER IMPRESSION: 1. ??Acute uncomplicated appendicitis. 2. ??Hepatic steatosis. 3. ??Prominent follicle right ovary. Narrative 09/08/2017 12:07 PM MUD MIXER HELPER EXAM: CT ABDOMEN PELVIS WITH IV CONTRAST [...] Dimitri Car M.D. IMG CT PROCEDURES (ABNORMAL) Desmond Solo (09/08/2017 11:03 AM MUD MIXER HELPER) Analysis Performed At [facility] Time Signature White Blood 11-20 (A) /hpf 09/08/2017 [facility] Cells 11:13 AM [facility] Comment: ----REFERENCE VALUE---- Males: 0-3 Females: 0-10 Unknown: 0-10 Red Blood Cells Occ-2 0 - 2 /hpf 09/08/2017 11:[address] [facility] Mucus Present /hpf 09/08/2017 11:13 AM [facility] [place] [facility] Squamous Epithelial Occ-3 /hpf 09/08/2017 11:13 AM [facility] Bacteria Present (A) None Seen 09/08/2017 11:13 AM [facility] Specimen Anatomical Collection Method Collection Time Receive d Time (Source) Location / / Volume Laterality Urine 09/08/2017 11:03 09/08/2017 AM MUD MIXER HELPER 11:05 AM MUD MIXER HELPER Dimitri Car M.D. LAB URINE ORDERABLES Performing Organization Address City/State/ZIP Code Phon e Number [facility] [address] [place] [address] [facility] (ABNORMAL) Urinalysis with Microscopic if Indicated (09/08/2017 11:03 AM MUD MIXER HELPER) Analysis Performed At Patho logist Time Signature Source Midstream 09/08/2017 [facility] 11:13 AM [facility] Clarity Slightly Clear 09/08/2017 [facility] Cloudy (A) 11:13 AM [facility] Color Yellow 09/08/2017 [facility] 11:13 AM [facility] [place] Comment: ----REFERENCE VALUE---- Colorless Yellow Philomena Blood Negative Negative 09/08/2017 11:13 AM [facility] Nitrite Positive (A) Negative 09/08/2017 11:13 AM [facility] Leukocyte Esterase Moderate (A) Negative 09/08/2017 11:1 3 AM [facility] Protein, U Trace mg/dL 09/08/2017 11:13 AM [facility] Comment: ----REFERENCE VALUE---- Negative Trace Glucose Negative Negative mg/dL 09/08/2017 11:13 AM [facility] Ketone Negative Negative mg/dL 09/08/2017 11:13 AM [facility] Bilirubin Negative Negative 09/08/2017 11:13 AM [facility] pH 6.0 5.0 - 8.0 09/08/2017 11:13 AM [facility] [place] [facility] Specific [place] 1.015 1.001 - 1.035 09/08/2017 11:13 AM [facility] Urobilinogen 0.2 0.2 - 1.0 09/08/2017 11:13 AM [facility] Specimen Anatomical Collection Method Collection Time Receive d Time (Source) Location / / Volume Laterality Urine (Urine, 09/08/2017 11:03 09/08/2017 Clean Catch) AM MUD MIXER HELPER 11:05 AM MUD MIXER HELPER Dimitri Car M.D. LAB URINE ORDERABLES Performing Organization Address City/[facility]/ZIP Code Phon e Number [address] [place] [address] [facility] (ABNORMAL) CRP (C-Reactive Protein) (09/08/2017 10:50 AM MUD MIXER HELPER) Analysis Performed At Patho logist Time Signature C-Reactive 115.8 (H) <=8.0 mg/L 09/08/2017 [facility] Protein (CRP), 11:12 AM [facility] Specimen Anatomical Collection Method Collection Time Receive d Time (Source) Location / / Volume Laterality Blood (Blood, 09/08/2017 10:50 09/08/2017 Venous) AM MUD MIXER HELPER 10:52 AM MUD MIXER HELPER Dimitri Car M.D. LAB BLOOD ADD-ON Performing Organization Address City/State/ZIP Code Phon e Number [address] [place] [address] [facility] hCG (Human Chorionic Gonadotropin), Quantitative, (09/08/2017 10:50 AM MUD MIXER HELPER) P athologist Signature HCG, <0.5 IU/L 09/08/2017 [facility] Quantitative, 11:36 AM [facility] Comment: Biotin has been identified by the doug saucedo as a potential interfering substance. ??Higher concentr ations of biotin may be found in multivitamins, hair/nail supple ments, and workout supplements. ??If the result does not [facility] clinical observations, repeat testing after patient refrains fr om the use of supplements for at least 12 hours. ----REFERENCE VALUE---- <5.0 Negative 5.0-25.0 Indeterminate >25.0 Positive Specimen Anatomical Collection Method Collection Time Receive d Time (Source) Location / / Volume Laterality Blood (Blood, 09/08/2017 10:50 09/08/2017 Venous) AM MUD MIXER HELPER 10:52 AM MUD MIXER HELPER Dimitri Car M.D. LAB BLOOD ADD-ON Performing Organization Address City/State/ZIP Code Phon e Number [facility] [address] [place] [address] [facility] Lipase (09/08/2017 10:50 AM MUD MIXER HELPER) P athologist Signature Lipase, P 22 13 - 60 U/L 09/08/2017 [facility] 11:13 AM [facility] Specimen Anatomical Collection Method Collection Time Receive d Time (Source) Location / / Volume Laterality Blood (Blood, 09/08/2017 10:50 09/08/2017 Venous) AM MUD MIXER HELPER 10:52 AM MUD MIXER HELPER Dimitri Car M.D. LAB BLOOD ADD-ON Performing Organization Address City/State/ZIP Code Phon e Number [facility] [address] [place] [address] [facility] Lactate (09/08/2017 10:50 AM MUD MIXER HELPER) P athologist Signature Lactate, P 0.7 0.6 - 2.3 09/08/2017 [facility] mmol/L 11:11 AM [facility] Specimen Anatomical Collection Method Collection Time Receive d Time (Source) Location / / Volume Laterality Blood (Blood, 09/08/2017 10:50 09/08/2017 Venous) AM MUD MIXER HELPER 10:52 AM MUD MIXER HELPER Dimitri Car M.D. LAB BLOOD NON ADD-ON Performing Organization Address City/State/ZIP Code Phon e Number [facility] [address] [place] [address] [facility] (ABNORMAL) Hepatic Function Panel (09/08/2017 10:50 AM MUD MIXER HELPER) Patholo gist Method Time Signature Bilirubin, Total, S 1.1 <=1.2 09/08/2017 [facility] mg/dL 11:12 AM [facility] Bilirubin, Direct, S 0.2 0.0 - 0.3 09/08/2017 [facility] mg/dL 11:12 AM [facility] Aspartate 32 8 - 43 09/08/2017 [facility] Aminotransferase U/L 11:12 AM [facility] Alanine 83 (H) 7 - 45 09/08/2017 [facility] Aminotransferase U/L 11:12 AM [facility] Alkaline 101 (H) 37 - 98 09/08/2017 [facility] Phosphatase, S U/L 11:12 AM [facility] Albumin, S 3.9 3.5 - 5.0 09/08/2017 [facility] g/dL 11:12 AM [facility] Protein, Total, S 6.9 6.3 - 7.9 09/08/2017 [facility] g/dL 11:12 AM [facility] Specimen Anatomical Collection Method Collection Time Receive d Time (Source) Location / / Volume Laterality Blood (Blood, 09/08/2017 10:50 09/08/2017 Venous) AM MUD MIXER HELPER 10:52 AM MUD MIXER HELPER Dimitri Car M.D. LAB BLOOD ADD-ON Performing Organization Address City/State/ZIP Code Phon e Number [facility] [address] [place] [address] [facility] BMP (Basic Metabolic Panel) (09/08/2017 10:50 AM MUD MIXER HELPER) P athologist Signature Potassium, P 4.2 3.6 - 5.2 09/08/2017 [facility] mmol/L 11:13 AM [facility] Sodium, P 135 135 - 145 09/08/2017 [facility] mmol/L 11:13 AM [facility] Chloride, P 99 98 - 107 09/08/2017 [facility] mmol/L 11:13 AM [facility] Bicarbonate, P 22 22 - 29 09/08/2017 [facility] mmol/L 11:13 AM [facility] Anion Gap, P 14 7 - 15 09/08/2017 [facility] 11:13 AM [facility] BUN (Blood Urea 7 6 - 21 09/08/2017 [facility] Nitrogen), P mg/dL 11:13 AM [facility] Creatinine 0.62 0.59 - 09/08/2017 [facility] 1.04 mg/dL 11:13 AM [facility] eGFR-Black/Afri >90 >=60 09/08/2017 [facility] can Citizen Of [place] mL/min/BSA 11:13 AM [facility] Comment: ----ADDITIONAL INFORMATION---- Estimated GFR calculated using the 2009 CKD_EPI creatinine equation. eGFR Non-Black/ >90 >=60 mL/min/BSA 09/08/2017 11:13 AM [facility] Citizen Of [place] [facility] Comment: ----ADDITIONAL INFORMATION---- Estimated GFR calculated using the 2009 CKD_EPI creatinine equation. Calcium, Total, P 9.1 8.9 - 10.1 mg/dL 09/08/2017 1 1:13 AM [facility] Glucose, P 104 70 - 140 mg/dL 09/08/2017 11:13 AM [facility] Specimen Anatomical Collection Method Collection Time Receive d Time (Source) Location / / Volume Laterality Blood (Blood, 09/08/2017 10:50 09/08/2017 Venous) AM [facility] 10:52 AM [facility] Dimitri Car M.D. LAB BLOOD ADD-ON Performing Organization Address City/State/ZIP Code Phon e Number [facility] [address] [place] [address] [facility] (ABNORMAL) CBC with Differential (09/08/2017 10:50 AM [facility]) [facility] Method Time Signature Hemoglobin 12.3 11.6 - 09/08/2017 [facility] 15.0 g/dL 10:56 AM [facility] Hematocrit 37.8 35.5 - 09/08/2017 [facility] 44.9 % 10:56 AM [facility] Erythrocytes 4.60 3.92 - 09/08/2017 [facility] 5.13 10:56 AM [facility] x10(12)/L [facility] MCV 82.2 78.2 - 09/08/2017 [facility] 97.9 fL 10:56 AM [facility] [place] [facility] RBC Distrib Width 13.9 12.2 - 09/08/2017 [facility] 16.1 % 10:56 AM [facility] Platelet Count 293 157 - 371 09/08/2017 [facility] x10(9)/L 10:56 AM [facility] Leukocytes 15.8 (H) 3.4 - 9.6 09/08/2017 [facility] x10(9)/L 10:56 AM [facility] Neutrophils 13.48 (H) 1.56 - 09/08/2017 [facility] 6.45 10:56 AM [facility] x10(9)/L [facility] Lymphocytes 1.35 0.95 - 09/08/2017 [facility] 3.07 10:56 AM [facility] x10(9)/L [facility] Monocytes 0.87 (H) 0.26 - 09/08/2017 [facility] 0.81 10:56 AM [facility] x10(9)/L [facility] Eosinophils 0.04 0.03 - 09/08/2017 [facility] 0.48 10:56 AM [facility] x10(9)/L [facility] Basophils 0.03 0.01 - 09/08/2017 [facility] 0.08 10:56 AM [facility] x10(9)/L [facility] Specimen Anatomical Collection Method Collection Time Receive d Time (Source) Location / / Volume Laterality Blood (Blood, 09/08/2017 10:50 09/08/2017 Venous) AM MUD MIXER HELPER 10:52 AM MUD MIXER HELPER Dimitri Car M.D. LAB BLOOD ADD-ON Performing Organization Address City/State/ZIP Code Phon e Number [facility] [address] [place] [address] [facility] documented in this encounter Visit Diagnoses Diagnosis Appendicitis Acute - Primary Appendicitis Acute documented in this encounter Administered Medications Inactive Administered Medications - up to 3 most recent administrations Medication Order MAR Action Action Date Dose Rate Site ciprofloxacin in D5W IVPB New Bag 09/08/2017 12:29 PM 400 mg 2 00 mL/hr Right Hand 400 mg (for_CIPRO) MUD MIXER HELPER 400 mg, intravenous, at 200 mL/hr, Administer over 60 Minutes, Once, On Wed09/08/17 at 1216, For 1 dose, premix bag, Drug Monitoring Program: Pharmacist to adjust medication order based on comorbities and indication., Indications: Appendicitis ciprofloxacin in D5W IVPB New Bag 09/09/2017 12:23 AM 400 mg 2 00 mL/hr Right Hand 400 mg (for_CIPRO) MUD MIXER HELPER 400 mg, intravenous, at 200 mL/hr, Administer over 60 Minutes, Once, On Bryanna 09/09/17 at 0030, For 1 dose, Start within 12 hours of last dose. premix bag, Drug Monitoring Program: Pharmacist to adjust medication order based on comorbities and indication., Indications: Prophylaxis, surgical heparin (porcine) 5,000 Given 09/08/2017 2:43 PM MUD MIXER HELPER 5,000 Units Abdominal Tissue unit/0.5 mL injection - ADS Override Pull Starting on Wed09/08/17 at 1426, For 1 dose, Created by cabinet override heparin (porcine) Given 09/09/2017 9:14 AM MUD MIXER HELPER 7,500 Units Left Lower Abdomen injection 7,500 Units 7,500 Units, subcutaneous, 3 times daily, First dose on Bryanna 09/09/17 at 0145 Given 09/09/2017 1:48 AM MUD MIXER HELPER 7,500 Units Right Lower Abdomen HYDROmorphone injection 0.5 mg (for_DILA UDID) Given 09/08/2017 2:40 PM MUD MIXER HELPER 0.5 mg 0.5 mg, intravenous, Every 1 hour PRN, moderate pain or score 4-6 of 10, Starting on Wed09/08/17 at 1253 iohexol 350 mg iodine/mL solution Given 09/08/2017 11:54 AM MUD MIXER HELPER 171 mL Right Hand 171 mL (for_OMNIPAQUE) 171 mL, intravenous, Once in imaging, contrast, Starting on Wed09/08/17 at 1059, For 1 dose ketorolac injection 30 mg Given 09/08/2017 10:57 AM MUD MIXER HELPER 30 mg Right Hand (for_TORADOL) 30 mg, intravenous, Once, On Wed09/08/17 at 1040, For 1 dose, Adult IV push rate: Over 15 seconds. Peds IV push rate: Over 1 minute. 60 mg dose only for IM, not recommended for IV., Drug Monitoring Program: Pharmacist to adjust medication order based on comorbities and indication. lactated ringers New Bag 09/08/2017 2:50 PM MUD MIXER HELPER 20 mL/hr 20 mL/hr 20 mL/hr, intravenous, Continuous, Starting on Wed09/08/17 at 1430, Pre-Op lactated ringers Rate/Dose Verify 09/08/2017 10:00 PM MUD MIXER HELPER 75 mL/hr 75 mL/hr 75 mL/hr, intravenous, Continuous, Starting on Wed09/08/17 at 2000 New Bag 09/08/2017 7:55 PM MUD MIXER HELPER 75 mL/hr 75 mL/hr metroNIDAZOLE in NaCl (iso-osm) New Bag 09/08/2017 1:39 PM MUD MIXER HELPER 500 mg 200 mL/hr IVPB 500 mg (for_FLAGYL) 500 mg, intravenous, at 200 mL/hr, Administer over 30 Minutes, Once, On Wed09/08/17 at 1210, For 1 dose, Indications: Appendicitis metroNIDAZOLE in NaCl (iso-osm) New Bag 09/09/2017 5:36 AM MUD MIXER HELPER 500 mg 200 mL/hr IVPB 500 mg (for_FLAGYL) 500 mg, intravenous, at 200 mL/hr, Administer over 30 Minutes, Every 8 hours, First dose on Wed09/08/17 at 2145, For 2 doses, Start within 8 hours of last dose., Indications: Prophylaxis, surgical New Bag 09/08/2017 9:25 PM MUD MIXER HELPER 500 mg 200 mL/hr morphine injection 4 mg Given 09/08/2017 10:57 AM MUD MIXER HELPER 4 mg 4 mg, intravenous, Every 20 min PRN, moderate pain or score 4-6 of 10, severe pain or score 7-10 of 10, Starting on Wed09/08/17 at 1038, For 3 doses NaCl 0.9 % bolus 1,000 New Bag 09/08/2017 10:58 AM 1,000 mL 2000 mL/hr Right Hand mL MUD MIXER HELPER 1,000 mL, intravenous, at 2,000 mL/hr, Administer over 0.5 Hours, Once, On Wed09/08/17 at 1040, For 1 dose NaCl 0.9% infusion New Bag 09/08/2017 11:27 AM 1,000 mL/hr 1000 mL/hr Right Aiken nd 1,000 mL/hr, MUD MIXER HELPER intravenous, Continuous, Starting on Wed09/08/17 at 1040, For Hydration ondansetron (PF) injection 4 mg (for_ZOF RAN) Given 09/08/2017 2:51 PM MUD MIXER HELPER 4 mg 4 mg, intravenous, Every 20 min PRN, nausea, vomiting, Starting on Wed09/08/17 at 1038, For 2 doses Given 09/08/2017 10:57 AM MUD MIXER HELPER 4 mg ondansetron (PF) injection 4 mg (for_ZOF RAN) 4 mg, intravenous, Every 6 hours PRN, na usea, vomiting, Starting on Wed09/08/17 at 1254 oxyCODONE IR tablet 5 mg (for_ROXICODONE ) Given 09/09/2017 5:45 AM MUD MIXER HELPER 5 mg 5 mg, oral, Every 4 hours PRN, mild pain or score 1-3 of 10, Starting on Wed09/08/17 at 1839 Given 09/09/2017 12:40 AM MUD MIXER HELPER 5 mg sodium chloride 0.9 % injection 10 mL 10 mL, intravenous, As needed, line care, Starting on Wed09/08/17 at 1037, Peripheral Intravenous Catheter and Rapid Infusion Cat heter, prior to blood sampling, post blood transfusion or post blood samplin g sodium chloride 0.9 % injection 10 Given 09/08/2017 11:55 AM MUD MIXER HELPER 10 mL Right Hand mL 10 mL, [...] % injection 80 Given 09/08/2017 11:09 AM MUD MIXER HELPER 80 mL Right Hand mL 80 mL, intravenous, Once, On Wed09/08/17 at 1109, For 1 dose documented in this encounter Active and Recently Administered Medications Times are shown in MUD MIXER HELPER. Scheduled Medication Order 09/07/2017 09/08/2017 09/09/2017 ciprofloxacin in D5W IVPB 400 mg (for_CIPRO) (COMPLETED) 1229 (New Bag - Provider: Keiry Perales RMarcos.)1330 (Stopped - Provider: Keiry Perales R.N.) 400 mg, intravenous, at 200 mL/hr, Admin ister over 60 Minutes, Once, 09/08/17 at 1216, For 1 dose, premix bag, [...] Keiry Perales R.N.) 30 mg, intravenous, Once, 09/08/17 at 1040, For 1 dose, Adult IV push rate: Over 15 seconds. Peds IV push rate: Over 1 minute. 60 mg dose only for IM, not recommended for IV., Drug Monitoring Program : Pharmacist to adjust medication order based on comorbities and indication. lactated Ringer's bolus 500 mL 1999 (Can celed Entry - Provider: Charline Lundberg R.N. - Comment: incorrect order by [facility] T.O. not to give had difficulity removing order) 500 mL, intravenous, at 250 mL/hr, Admin ister over 2 Hours, Once, 09/08/17 at 2000, For 1 dose metroNIDAZOLE in NaCl (iso-osm) IVPB 500 mg (for_FLAGYL) (CO MPLETED) 1339 (New Bag - Provider: Keiry Perales R.N.)1401 (Stopped - Provider: Keiry Perales R.N.) 500 mg, intravenous, at 200 mL/hr, Admin ister over 30 Minutes, Once, 09/08/17 at 1210, For 1 dose, Indications: Appendicitis metroNIDAZOLE in NaCl (iso-osm) IVPB 500 mg (for_FLAGYL) (CO MPLETED) 2124 (New Bag - Provider: Charline Lundberg R.N.) 0536 (New Bag - Provider: Suni madrid RRoverto) 500 mg, intravenous, at 200 mL/hr, Admin [...] 0.9 % injection 3 mL 140 8 (MAR Hold - Provider: Transfer Provider, Automatic - Reason: Patient not available)1811 (MAR Unhold - Provider: Transfer Provider, Automatic)2100 (Not [...] 80 mL (COMPLETED) 1109 (Given - Provider: Ruben KrishnamurthyTBrittaney(R)(CT), R.T.(R)) 80 mL, intravenous, Once, Wed09/08/17 at 1109, [...] (New Bag - Prov ider: Keiry Perales R.N.)1401 (Stopped - Provider: Keiry Perales R.N.) 1,000 [...] promethazine). HYDROmorphone injection 0.5 mg (for_DILAUDID) 1408 (MAR Hold - Provider: Transfer Provider, Automatic - Reason: Patient not available)1440 (Given - Provider: Zelda Vilchis RBrittaneyN.)1811 ([facility] Unhold - Provider: Transfer Provider, Automatic) 0.5 [...] (CO MPLETED) 1119 (Due)1154 (Given - Provider: Marlene Krishnamurthy(R)(CT), Marlene(R)) 171 mL, intravenous, Once in imaging, co ntrast, Starting Wed09/08/17 at 1059, For 1 dose lidocaine 50 mL, bupivacaine PF 50 mL 100 mL injection ([facility]) 1717 (Given - Provider: Jaquan Monahan D.O.) As needed, Starting Wed09/08/17 at 1717, Intra-Op morphine injection 4 mg 1057 (Given - Pr ovider: Keiry Perales R.N.)1408 ([facility] Hold - Provider: Transfer Provider, Automatic - Reason: Patient not available)181 ([facility] Unhold - Provider: Transfer Provider, Automatic) 4 [...] mg (for_ZOFRAN) (COMPLETED) 1057 (Given - Provider: Keiry Perales R.N.)1408 ([facility] Hold - Provider: Transfer Provider, Automatic - Reason: Patient not available)1451 (Given - Provider: Zelda Vilchis RBrittaneyN.)181 ([facility] Unhold - Provider: Transfer Provider, Automatic) 4 mg, intravenous, Every 20 min PRN, [place], vomiting, Starting Wed09/08/17 at 1038, For 2 doses ondansetron (PF) injection 4 mg (for_ZOFRAN) 1408 ([facility] Hold - Provider: Transfer Provider, Automatic - Reason: Patient not available)1448 (Dose Auto Held)181 ([facility] Unhold - Provider: Transfer Provider, Automatic) 4 [...] 10 mL (COMPLETED) 1155 (Given - Provider: Sarah Vance RBrittaenyTBrittaney(R)(CT), R.T.(R)) 10 mL, intravenous, Once in imaging, kody e care, Starting Wed09/08/17 at 1107, For 1 dose sodium chloride 0.9 % injection 3 mL 140 8 (OCT Hold - Provider: Transfer Provider, Automatic - Reason: Patient not available)1811 (MAR Unhold - Provider: Transfer Provider, Automatic) 3 mL, intravenous, As needed, line care, Starting 09/08/17 at 1037, Prior to and following infusion and between multiple consecutive infusions: sodium chloride 0.9 % injection No Frequency Medication Order 09/07/2017 09/08/2017 09/09/2017 heparin (porcine) 5,000 unit/0.5 mL injection - ADS Override Pull (COMPLETED) 1443 (Given - Provider: Zelda Vilchis R.N.) Starting Wed09/08/17 at 1426, For 1 dose, Created by edmar campa documented in this encounter Additional Health Concerns Assessment Noted Time PHQ-9 Depression Total Score: 7 04/07/2017 9:39 AM CDT documented as of this encounter Care Teams Security Investigator Relationship Specialty Start Date End Date Blaire Bundy P.A.-C. PCP - General 02/04/17 04/26/19 documented as of this encounter
--- OUTSIDE RECORDS SUMMARY | 2022-06-29 09:30 | XMS_ITS | Encounter Summary ---
:1985 Author Organization [facility] Address [address] [place] [address] Care Team Providers Name Role Phone Blaire Bundy P.A.-C. Primary Care Provider Reason for Visit Auth/Cert Specialty Diagnoses / Procedures Referred By Contact Refer red To Contact Diagnoses Appendicitis Acute Appendicitis Acute Procedures LAPAROSCOPIC APPENDECTOMY Referral ID Status Reason Start Date Expiration Date Visits Requ ested Visits Authorized [id number] 1 1 Encounter Details Date Type Department Care Team Description 09/08/2017 Anesthesia Event [facility] MAIN OR Nancy Smith M.D. [address] [facility] [address] [place] [address] [place], [place] [phone] [id number] (Wo rk) Anesthesia Record Procedure Summary Procedure Name Responsible Anesthesia Start Anesthesia Stop Anesthesiologist Time Time LAPAROSCOPIC Nancy Smith M.D. 09/08/17 1606 09/08/17 17 39 APPENDECTOMY Events Date Time Event Comment 09/08/2017 1447 1606 In Room 1606 An Start Machine/Equipmen t Checked Infection Precautions Foll owed Procedure/Site Verified NPO Sta tus Verified Supine Standard ASA Mon itors Applied 1610 An Induction 1616 An Intubation 1616 Turnover to Proceduralist 1635 Proc Start 1724 Proc Fin 1732 Turnover to ANE Staff 1735 Airway Removal Criteria Met 1735 Extubation/Airway Removed 1736 an stop data 1736 Out of Room 1739 An End I completed my h andoff to the receiving staff during [facility] we 1. Identified the patient 2. Ident ified the responsible provider 3. Revi ewed the pertinent medical history 4. Discussed the surgical course 5. Review ed intra-op anesthesia management and i ssues during anesthesia 6. Set expectati ons for post-procedure period 7. Allowe d opportunity for questions and ac knowledgement of understanding. Name Total midazolam 1 mg/mL injection 2 mg lidocaine 2% (mg) injection 150 mg propofol 10 mg/mL 300 mg rocuronium 10 mg/mL injection 80 mg ondansetron 4 mg/2 mL injection 4 mg ketamine 10 mg/mL injection 50 mg dexamethasone 4 mg/mL injection 8 mg HYDROmorphone 1 mg/mL injection 1 mg sugammadex 100 mg/mL injection 290 mg ketorolac 30 mg injection 30 mg Lactated Ringers Free Drip 750 mL Agents No agents on file. Blood No blood administrations on file. Lines, Drains, and Airways Type Details Placement Removal Peripheral IV Placement Date: 09/08/17 1606 by 09/09/17 1111 b y 09/08/17; Placement Dimitri Chase, Kiera Bush, Time: 160; Removal JOSEFA, BRENDA R.N. Date: 09/09/17; Removal Time: 1111 ETT Placement Date: 09/08/17 1615 by 09/08/17 1735 b y 09/08/17; Placement Dimitri Chase Sawyer, M ichael D, Time: 161 (created BRENDA RIVERO APRN, SCRAP YARD WORKER via procedure documentation); Mask Ventilation: Easy mask; Type: Standard ETT; Single Lumen Tube Size: 7 mm; Cuffed: Yes; Location: Oral; Removal Date: 09/08/17; Removal Time: 1735 Indwelling Urinary Placement Date: 09/08/171657 by 09/08/17 172 7 by Catheter 09/08/17; Placement Antionette Barnes, R.NSidney Bunn R.NBrittaney Time: 1657; Inserted by: Antionette Barnes, SHRUTHI; Type: Double-lumen; Size: 16 Fr.; Balloon Size: 5 mL; Urine Returned: Yes; Removal Date: 09/08/17; Removal Time: 1727 (RETIRED) Incision 09/08/17; 1718; 09/08/17 1718 by 05/13/21 141 8 by Abdomen; and Antionette Barnes, R.N. [facility] dermabond; [employer] PROGRAM COORDINATOR d, Karena g WND ADH NEONAT 2X3.75 Automated Batch [...] How often do you attend [facility] or [facility]on More than 4 time s [...] encounter OR Notes Anesthesia Postprocedure Evaluation - Dimitri Chase, JOSEFA, SCRAP YARD WORKER - 09/08/2017 5:50 PM CST Patient: Carol Coloey Procedure Summary Date: 09/08/17 Room / Location: [address] / [facility] OR Anesthesia Start: 160 Anesthesia Stop: 1738 Procedure: LAPAROSCOPIC APPENDECTOMY (N/A ) Diagnosis: Appendicitis Acute (Appendicitis Acute [K35.80]) Surgeon: Edd Moeller D.O. Responsible Provider: Nancy Smith M.D. Anesthesia Type: general ASA Status: 3 - Emergent Anesthesia Type: general Last vitals BP 147/74 (09/08/171729) Temp 37.1 ??C (09/08/171729) Pulse (!) 115 (01/17/18 1730) Resp 16 (09/08/17 1730) SpO2 94 % (09/08/17 1730) Anesthesia Post Evaluation 09/08/2017 5:50 PM Patient Disposition: general care unit Cardiovascular status: hemodynamics (HR & BP) acceptable Respiratory status: patent airway with spontaneous effort Temperature: normothermic Oxygen requirements: room air Level of consciousness: sedated but awakens easily Pain score: pain adequately controlled and/or at baseline Post Op nausea/vomiting: none Hydration status: euvolemic HT OPERATIONS DISPATCH CLERK Anesthesia Procedure Notes - Dimitri Chase APRN, CRNA - 09/08/2017 4:27 PM CSTAssociated Order(s): ANESTHESIA INTUBATION Airway Date/Time: 09/08/2017 4:15 PM Patient location during procedure: OR Performed by: Dimitri Chase Authorized by: Dimitri Chase Pre procedure details Pre evaluation for airway [...] Procedure outcome: successful Airway event: no complications HT OPERATIONS DISPATCH CLERK Anesthesia Preprocedure Evaluation - Nancy Smith M.D. - 09/08/2017 1:40 PM CST Anesthesia Pre-Evaluation Review of Systems and Problem List PROBLEM LIST Relevant Problems (+) Body Mass Index 50.0 To 59.9 Adult (HCC) (+) Migraine Headache Hcg negative On Depo shots 8 weeks post toradol given at 11:00 in ED zofran given at 15:00 in SDS OBJECTIVE PHYSICAL EXAMINATION Airway (HEENT) Mallampati: II TM Distance: <3 FB Neck ROM: Full] Cardiovascular Rhythm: Regular Rate: Normal Cardiovascular Assessment: Normal Pulmonary Pulmonary Assessment: Clear Neurological Normal Dental Normal General / Constitutional Normal ASSESSMENT / PLAN ANESTHESIA PLAN ASA: 3 - Emergent Anesthesia Plan: general Patient seen and allergies reviewed; anesthesia plan and risks discussed directly with patient / legal guardian, or through an interpreter for the deaf; patient evaluated and approved for anesthesia / sedation. The use of blood products not discussed Discussed risk of potential decreased hormonal contraceptive efficacy for up to one week after anesthesia due to medication interactions. HT OPERATIONS DISPATCH CLERK documented in this encounter Plan of Treatment Scheduled Procedures Name Priority Associated Diagnoses Date/Time COLONOSCOPY Diarrhea documented as of this encounter Procedures Procedure Name Priority Date/Time Associated Comments Diagnosis LDA ANE ENDOTRACHEAL Routine 09/08/2017 4:27 PM R esults for this AIRWAY FLIGHT OPERATIONS DISPATCH CLERK procedure are i n the results section. documented in this encounter Results LDA ANE ENDOTRACHEAL AIRWAY (09/08/2017 4:27 PM FLIGHT OPERATIONS DISPATCH CLERK) Narrative Dimitri Chase APRN, CRNA - 09/08/19 18 4:27 PM FLIGHT OPERATIONS DISPATCH CLERK Dimitri Chase APRN, CRNA ? 09/08/2017 ??4:31 PM Airway Date/Time: 09/08/2017 4:15 PM Patient location during procedure: OR Performed by: Dimitri Chase Authorized by: Dimitri Chase Pre procedure details ?? Pre evaluation for [...] glottic structure s - Cormack/Lehane Score: grade 2A ?? ETT location: oral ?? VL device: [...] ? Airway event: no complications Procedure Note Dimitri Chase APRN, CRNA - 09/08/19 4:27 PM CST Airway Date/Time: 09/08/2017 4:15 PM Patient location during procedure: OR Performed by: Dimitri Chase Authorized by: Dimitri Chase Pre procedure details Pre evaluation for airway management: p rocedure Urgency: elective Preop assessment of probable difficulty : questionable / suspicious difficult airway Sedation level: anesthetized Preoxygenation: bag valve mask Procedure details Mask difficulty assessment: easy mask Final airway type: video laryngoscope Laryngeal Manipulation: no Final best view of glottic structures - Cormack/Lehane Score: grade 2A ETT location: oral VL device: [facility] CMAC St[facility] CMAC blade size: D - adult Adult tube size: 7 Adult ETT distance at teeth/gum: 20 Oral tube type: standard ETT Cuffed: yes Number of attempt to successful placeme nt: 1 Airway confirmation: bilateral breath s ounds, positive ETCO2 and bilateral chest rise Other previous techniques attempted: no ne Post procedure details Procedure outcome: successful Airway event: no complications Dimitri Chase APRN, CRNA ANESTHESIA ORDERABLES documented in this encounter Visit Diagnoses Not on filedocumented in this encounter Administered Medications Inactive Administered Medications - up to 3 most recent administrations Medication Order MAR Action Action Date Dose Rate Site dexamethasone injection Given 09/08/2017 4:07 PM FLIGHT OPERATIONS DISPATCH CLERK 8 mg (for_DECADRON) As needed, Starting on Wed09/08/17 at 1607, Anesthesia Intra-op HYDROmorphone injection (for_DILAUDID) Given 09/08/2017 4:14 PM FLIGHT OPERATIONS DISPATCH CLERK 1 mg As needed, moderate pain or score 4-6 of 10, Starting on Wed09/08/17 at 1614, Anesthesia Intra-op ketamine injection (for_KETALAR) Given 09/08/2017 4:06 PM FLIGHT OPERATIONS DISPATCH CLERK 50 mg As needed, Starting on Wed09/08/17 at 1606, Anesthesia Intra-op ketorolac injection (for_TORADOL) Given 09/08/2017 5:25 PM FLIGHT OPERATIONS DISPATCH CLERK 30 mg As needed, moderate pain or score 4-6 of 10, Starting on Wed09/08/17 at 1725, Anesthesia Intra-op lactated ringers New Bag 09/08/2017 4:36 PM FLIGHT OPERATIONS DISPATCH CLERK intravenous, Continuous Infusion: Per Instructions PRN, Starting on Wed09/08/17 at 1636, Anesthesia Intra-op New Bag 09/08/2017 4:06 PM FLIGHT OPERATIONS DISPATCH CLERK lidocaine (PF) (cardiac) injection Given 09/08/2017 4:11 PM FLIGHT OPERATIONS DISPATCH CLERK 150 mg intravenous, As needed, Starting on Wed09/08/17 at 1611, Anesthesia Intra-op midazolam (PF) injection (for_VERSED) Given 09/08/2017 4:06 PM FLIGHT OPERATIONS DISPATCH CLERK 2 mg intravenous, As needed, Starting on Wed09/08/17 at 1606, Anesthesia Intra-op ondansetron (PF) injection (for_ZOFRAN) Given 09/08/2017 5:11 PM FLIGHT OPERATIONS DISPATCH CLERK 4 mg intravenous, As needed, nausea, vomiting, Starting on Wed09/08/17 at 1711, Anesthesia Intra-op propofol injection (for_DIPRIVAN) Given 09/08/2017 4:11 PM FLIGHT OPERATIONS DISPATCH CLERK 300 mg intravenous, As needed, Starting on Wed09/08/17 at 1611, Anesthesia Intra-op rocuronium injection (for_ZEMURON) Given 09/08/2017 4:07 PM FLIGHT OPERATIONS DISPATCH CLERK 80 mg intravenous, As needed, Starting on Wed09/08/17 at 1607, Anesthesia Intra-op sugammadex injection (for_BRIDION) Given 09/08/2017 5:17 PM FLIGHT OPERATIONS DISPATCH CLERK 290 mg As needed, Starting on Wed09/08/17 at 1717, Anesthesia Intra-op documented in this encounter Additional Health Concerns Assessment Noted Time PHQ-9 Depression Total Score: 7 04/07/2017 9:39 AM CDT documented as of this encounter Care Teams Larriman Helper Relationship Specialty Start Date End Date Blaire Bundy P.A.-C. PCP - General 02/04/17 04/26/19 documented as of this encounter
--- OUTSIDE RECORDS SUMMARY | 2022-06-29 09:30 | XMS_ITS | Encounter Summary ---
:1985 Author Organization [facility] Address [address] [place] [address] Care Team Providers Name Role Phone Blaire Bundy P.A.-C. Primary Care Provider Reason for Visit Reason Comments Post-op po lap appy 09-08-17 Outpatient (Routine) - Closed Specialty Diagnoses / Procedures Referred By Contact Refer red To Contact General Surgery Diagnoses Appendicitis Acute Par Review Seng Reyna M.D. [facility] Region Procedures GNS POST OP [address] [place] [address] Referral ID Status Reason Start Date Expiration Date Visits Requ ested Visits Authorized [id number] Closed 09/09/2017 03/08/2018 1 1 Encounter Details Date Type Department Care Team Description 09/17/2017 Office Visit Department of General Seng Reyna M. D. Appendectomy Laparoscopic Status Post (Primary Dx); Surgery in [facility] Hermelinda Hansen, Vianney-Marlyn., P.A. 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 - 09/17/2017 9:00 AM [employer] P[employer] Images from the original note were not included. Incision Care Remember: Follow-up visits allow your doctor to make sure your incision is healing well. Be sure to keep your appointments. Sutures (stitches), surgical juan c, adhesive tapes,or surgical glue may be used to close incisions. They also help stop bleeding and speed healing. Instead of sutures, your wound may have been closedwith special strips of tape called Steri-Strips. Treat these the same way you would sutures. To helpyour incision heal, follow the tips on this handout. Care for Steri-Strips the way you would sutures. Keeping Your Incision Clean and Dry ??? Avoid doing things that could cause dirt or sweat to get on your incision. ??? Don???t pick at scabs. They help protect the wound. ??? Keep your incision out of water. Bathe or shower only as directed. ??? To keep the wound dry when around water, cover it with a plastic bag or plastic wrap. You could also use rubber gloves to protect sutures on a hand. ??? If sutures get damp, pat them dry. Wash your hands before changing a dressing. Changing Your Dressing Leave the dressing (bandage) in place until you are told to remove it or change it. Change it only as directed, using clean hands. ??? After the first 48 hours the incision wound will have closed.At this point, leave the incision uncovered and open to the air. ??? Cover your incision only if your clothing is rubbing it or causing irritation. ??? Change your dressing if it gets wet or soiled. Call Your Health Care Provider If You Notice Any of These Signs: ??? The wound opens spontaneously ??? Increased soreness, pain, or tenderness after 24 hours ??? A red streak, increased redness, or puffiness near the wound ??? White, yellowish, or bad-smelling discharge from the wound ??? Bleeding that can???t be stopped by applying pressure ??? Steri-Strips fall off or stitches dissolve before the wound heals ??? Fever above 101.0??F (38.3??C) ?? [id number] [place] [address]. All rights reserved. This information is not intended as a substitute for professional medical care. Always follow your healthcare professional's instructions. 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 - 09/17/2017 9:00 AM CST SUBJECTIVE CHIEF COMPLAINT/REASON FOR VISIT Post-Operative Visit Referring provider: Dr. Al Monahan Status postoperative laparoscopic appendectomy performed on September 08, 2017 Postoperative day 9. HISTORY OF PRESENT ILLNESS Puneet Clayton is a 31 y.o. female seen in postoperative follow-up. The surgery date was September 08, 2017. The operation performed was laparoscopic appendectomy. Patient mentions she has been doing okay today since the time of surgery. Denies pain related symptoms. She has not needed any prescription pain medications since she was discharged from the hospital. She has been taking phza-lnr-[id number] pain medications as needed since. She is eating and tolerating a regular diet without nausea, vomiting or increased distention. Mentions nausea on the 1st few days following surgery but this is resolved. She describes her bowel movements as loose stools and becoming more formed; she is having 4-5 bowelmovements per day. Denies constipation. She has been able to perform all of her activities of daily living and has been mindful of the lifting restrictions of no more than 20 lb for 2 weeks time. She mentions the incisions are healing appropriately without erythema, induration, drainage. She denies fevers, chills, chest pain, shortness of breath following surgery. She does endorse heartburn followingsurgery. She had some of these episodes of heartburn leading up to the surgery. She denies any peripheral edema of the lower legs. She does not bring forth any other complaints or concerns. OBJECTIVE Vitals: 09/17/17 0904 BP: (!) 115/48 Pulse: 84 Temp: 36.6 ??C TempSrc: Temporal PainSc: 0-No pain PHYSICAL EXAM GENERAL: Awake, alert, oriented. In no acute distress. Sitting comfortably in examination room. HEENT: Head normocephalic, atraumatic. Symmetrical facial features. RESP: Regular rate and rhythm. Normal respiratory effort. Lungs clear to auscultation bilaterally. No wheezes, rales, crackles, no cough. CV: Regular rate and rhythm. Normal S1, S2. No murmurs, rubs or gallops. ABDOMEN: Soft, non-distended. Mild and appropriate incisional tenderness to palpation. Otherwise nontender. No generalized tenderness. No focal tenderness. No rebound tenderness; no guarding. No organomegaly or masses. SKIN: Incision---Abdominal incisions clean, dry and intact. Incisions healing appropriately without erythema, induration, drainage, bleeding, warmth. No ecchymosis. No seroma or hematoma formation. No jaundice. EXTREMITIES: Nontender without gross edema present. DIAGNOSTICS I have reviewed this patient's laboratory and diagnostic results. Recent Results (from the past 720 hour(s)) Pathology Services Status: None Result Value PATHOLOGY SERVICES Patient Name: PUNEET CLAYTON MR#: [id number] Submitting Physician: JAQUAN MONAHAN DO [id number] Specimen #[id number] Performing Lab: [address] [address] Source: Appendix Clinical History/Pre-Op Appendicitis acute [K35.80] Gross Description Labeled appendix consists of a 6.1 cm in length x 1.2 cm in diameter appendix, with attached mesoappendix (2.4 cm). The serosa is gatica-brown with focal areas of white exudate. The mucosa is red-brown hemorrhagic to necrotic. An area of disruption is not grossly identified. Recreation Facility Attendant sections are submitted in cassette A1. KG/ed Diagnosis Appendix, appendectomy: ACUTE APPENDICITIS WITH PERIAPPENDICITIS. Electronically Signed By JANNET HERNÁNDEZ MD - 09/10/2017 ed/09/10/2017 ASSESSMENT / PLAN Puneet Clayton is doing well postoperatively. We discussed the operative findings and expected course from this point and she expressed understanding. All of her questions were answered to her satisfaction. She will contact us if she has any additional questions or concerns. At this point the patient is dismissed from our surgical service. We reviewed ongoing postoperative parameters including pain management with [id number] Tylenolor ibuprofen as needed, ongoing incision care, and ongoing activity parameters including reviewed the lifting restrictions of no more than 20 lb for 2 weeks time. We also reviewed the patient's loose stools following surgery. I encouraged her to monitor the frequency of her bowel movements and notify me if she begins to experience upwards of 8-10 stools per day. If this should occur, I would recommend we perform stool studies. We also reviewed the results of the surgical pathology as noted above. Wereviewed concerns and symptoms that should prompt her to return to clinic including worsening abdominal pain, fevers chills, nausea vomiting. She will follow up with our department as needed moving forward and is encouraged to contact us with any questions or concerns that arise. Hermelinda Hansen P.A.-C., P.A. ER[employer]ONE PILOT documented in this encounter Plan of Treatment Scheduled Procedures Name Priority Associated Diagnoses Date/Time COLONOSCOPY Diarrhea documented as of this encounter Visit Diagnoses Diagnosis Appendectomy Laparoscopic Status Post - Primary Appendicitis Acute documented in this encounter Additional Health Concerns Assessment Noted Time PHQ-9 Depression Total Score: 7 04/07/2017 9:39 AM CDT documented as of this encounter Care Teams Hazmat Cdl A Driver Relationship Specialty Start Date End Date Blaire Bundy P.A.-C. PCP - General 02/04/17 04/26/19 documented as of this encounter
--- OUTSIDE RECORDS SUMMARY | 2022-06-29 09:30 | XMS_ITS | Encounter Summary ---
:1985 Author Organization [facility] Address [address] [place] [address] Care Team Providers Name Role Phone Blaire Bundy P.A.-C. Primary Care Provider [phone] Reason for Visit Reason Comments Chest Pain Pain With Breathing Encounter Details Date Type Department Care Team Description 11/04/2017 Emergency [place] [facility] Berny Garcia M.D. [address] [place] [address] Pleurisy (Primary Dx) Department Erlin Garcia M.D. 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 Pleurisy (Kuwaiti)documented in this encounter Medications at Time of Discharge Medication Sig Dispensed Refills Start Date End Date acetaminophen (for_TYLENOL) Take 1-2 tablets 0 500 mg tablet by mouth every 6 (six) hours as needed. docusate sodium (for_COLACE) Take 1 capsule by 0 06/24/2017 11/07/2017 100 mg capsule mouth 2 (two) times a day as needed. ibuprofen (for_ADVIL,MOTRIN) Take 200 mg by 0 11/12/2017 200 mg tablet mouth as needed. ibuprofen (for_ADVIL,MOTRIN) Take 3 tablets by 0 06/24/2017 11/07/2017 200 mg tablet mouth every 6 (six) hours as needed. methylPREDNISolone follow package 21 tablet 0 11/04/2017 (for_MEDROL DOSEPACK) 4 mg directions. tablet sennosides (SENNA) 8.6 mg Take 2 tablets by 0 09/201611/07/2017 tablet mouth at bedtime as needed. documented as of this encounter ED Notes Berny Garcia M.D. - 11/04/2017 5:15 PM CDT SUBJECTIVE CHIEF COMPLAINT/REASON FOR VISIT Chest Pain and Pain With Breathing HISTORY OF PRESENT ILLNESS Patient is a 31-year-old white female with history of migraines, depression, ADHD, and obesity who presents with pleuritic chest pain that started yesterday. She states she was just a grocery store when suddenly started experiencing what she thought might be heartburn but when she got home she took some milk in addition to her Zantac in her daily omeprazole this did not change her discomfort whatsoever. There is no burning sensation but rather more a substernal sharp pain with any deep inspiration. She denies any shortness of breath or cough and no calf tenderness or changes some chronic pedal edema. She did have vaginal delivery 4 months ago and also did have her appendix out in August but otherwise had no recent procedures and no recent travel. As her discomfort was not improving and there is a family history of her father having an SC in his 50s she is presenting now for further evaluation of this. She denies any abdominal discomfort and the pain does not radiate elsewhere particularly intoher neck or shoulders. She works nights but when sleeping today did notice the discomfort was present and did awaken her few times during sleep. She does admit to some mild nausea associated with the above. She does have a history of smoking but quit prior to her . Her EKG on arrival shows nor mal sinus rhythm at 76 beats per minute with sinus arrhythmia but no ischemic changes REVIEW OF SYSTEMS Constitutional: Negative for activity change, chills and fever. HENT: Negative for congestion and rhinorrhea. Eyes: Negative. Respiratory: Negative for cough and shortness of breath. Cardiovascular: Positive for chest pain. Negative for palpitations and leg swelling. Gastrointestinal: Positive for nausea. Negative for abdominal pain, constipation and vomiting. Endocrine: Negative. Genitourinary: Negative. Musculoskeletal: Negative. Negative for back pain and extremity pain. Skin: Negative. Allergic/Immunologic: Negative. Neurological: Negative for syncope, light-headedness and headaches. Hematological: Negative. Psychiatric/Behavioral: Negative. OBJECTIVE Initial Vitals Temperature Pulse Rate Heart Rate Resp Rate Blood Pressure SpO2 11/04/17 1715 11/04/17 1705 11/04/17 1710 11/04/17 1715 11/04/17 1715 11/04/17 1705 36.4 ??C 81 72 19 (!) 149/97 95 % Pain Score 11/04/17 0000 6 PHYSICAL EXAMINATION Constitutional: She appears well-developed and well-nourished. No distress. HENT: Head: Normocephalic and atraumatic. Nose: Nose normal. Mouth/Throat: Oropharynx is clear and moist. Mucous membranes are moist. Dental: Good dentition. Eyes: Conjunctivae and EOM are normal. Pupils are equal, round, and reactive to light. Neck: Normal range of motion. Neck supple. Cardiovascular: Normal rate, regular rhythm, S1 normal, S2 normal and normal heart sounds. Capillaryrefill: takes less than 3 seconds, Pulmonary/Chest: Effort normal and breath sounds normal. There is normal air entry. No tachypnea. Norespiratory distress. She has no wheezes. She has no rhonchi. She has no rales. She exhibits no retraction. Abdominal: Soft. Bowel sounds are normal. There is no tenderness. There is no rebound and no guarding. Musculoskeletal: Normal range of motion. She exhibits edema. She exhibits no tenderness or deformity. Trace edema in the ankles and feet Neurological: She is alert and oriented to person, place, and time. She is not disoriented. No cranial nerve deficit. She exhibits normal muscle tone. Coordination normal. Skin: Skin is warm, dry, intact and normal color. Psychiatric: She has a normal mood and affect. Her behavior is normal. Thought content normal. Nursing note and vitals reviewed. ASSESSMENT/PLAN Impression and Plan Patient's symptoms sound consistent with pleurisy but with family history of coronary artery diseaseas well as recent surgery as well as vaginal delivery will check troponin and D-dimer to help rule out acute coronary syndrome or a PE. She has no symptoms of pneumonia and exam is not consistent with a pneumothorax but chest x-ray be obtained to rule out both the above as well. There is no abdominal discomfort to suggest pancreatitis or cholecystitis but LFTs will be obtained as wel. Also try GI cocktail however since she is on omeprazole and Zantac her pain appears to be purely pleuritic anticipate this will be ineffective l Patient's CT scan of chest to my reading shows no evidence for pulmonary embolus. However radiology is not yet over the films therefore will make final disposition. However my anticipated diagnosis is viral pleurisy. ED Course as of Nov 04 1942 Bryanna Nov 04, 2017 1746 Leukocytes: 4.8 1747 Hemoglobin: 13.5 1747 Platelet Count: 278 1806 Troponin T: <0.01 1806 D-Dimer, P: (!) 2.06 1808 Chest x-ray is clear however D-dimer is 2.06. Will obtain chest angio to rule out PE Final Diagnoses: as of Nov 04 1942 Pleurisy Berny Gracia M.D. 11/06/17 0706 Leonora Meadows R.N. - 11/04/2017 5:06 PM CDT Chest pain began yesterday. Pt took prescribed Omeprazole w/o relief and has hx heartburn and familyhx heart disease. Leonora Meadows R.N. 11/04/17 1706 documented in this encounter Plan of Treatment Scheduled Procedures Name Priority Associated Diagnoses Date/Time COLONOSCOPY Diarrhea documented as of this encounter Procedures Procedure Name Priority Date/Time Associated Comments Diagnosis CT CHEST ANGIOGRAM RAD - Semiurgent 11/04/2017 8:09 Re sults for WITH IV CONTRAST (Fast; most ED PM CDT this proc edure patients; some are in the inpatients) results section. D-DIMER, P STAT 11/04/2017 5:43 Results for PM CDT this procedure are in the results section. CBC WITH STAT 11/04/2017 5:43 Results for DIFFERENTIAL, B PM CDT this procedu re are in the results section. TROPONIN T, 5TH GEN, STAT 11/04/2017 5:43 Resu lts for P PM CDT this procedure are in the results section. COMPREHENSIVE STAT 11/04/2017 5:43 Results for METABOLIC PANEL, S/P PM CDT this pr ocedure are in the results section. DX CHEST AP OR PA RAD - Semiurgent 11/04/2017 5:32 Res ults for AND LATERAL 2 VIEWS (Fast; most ED PM CDT this p rocedure patients; some are in the inpatients) results section. ECG Routine 11/04/2017 5:09 Results for PM CDT this procedure are in the results section. documented in this encounter Results CT Chest Angiogram with IV Contrast (11/04/2017 8:09 PM CDT) Anatomical Region Laterality Modality Chest N/A Computed Tomography Specimen (Source) Anatomical Collection Method Collection Time Re ceived Time Location / / Volume Laterality 11/05/2017 7:18 AM CDT Impressions 11/05/2017 7:25 AM CDT IMPRESSION: 1. ??Negative for acute pulmonary emboli sm. Specifically, there is no central pulmonary embolism. Study is nondiagnost ic for exclusion of lobar or more peripheral emboli. If there is high clin ical suspicion for pulmonary embolism, recommend repeat exam. 2. ??Hepatic steatosis. Narrative 11/05/2017 7:25 AM CDT EXAM: CT CHEST ANGIOGRAM WITH IV CONTRAST 3D/MIPS: 3D Post-Processing performed on a dependent workstation. COMPARISON: 11/04/2017 chest x-ray FINDINGS: Mild cardiomegaly. No pericardial effusi on. No straightening of the interventricular septum. No central pulm onary embolism. Study is nondiagnostic for exclusion of peripheral emboli. No a xillary, mediastinal or hilar lymphadenopathy by size criteria. No pneumothorax or pleural effusion. The central tracheobronchial tree is patent. No lung consolidation. Right low er lobe granuloma. Hepatic steatosis. Splenomegaly. Procedure Note Cedric Lozada M.D. - 11/05/2017Formatt ing of this note might be different from the original. EXAM: CT CHEST ANGIOGRAM WITH IV CONTRAS T 3D/MIPS: 3D Post-Processing performed on a dependent workstation. COMPARISON: 11/04/2017 chest x-ray FINDINGS: Mild cardiomegaly. No pericardial effusi on. No straightening of the interventricular septum. No central pulm onary embolism. Study is nondiagnostic for exclusion of peripheral emboli. No a xillary, mediastinal or hilar lymphadenopathy by size criteria. No pneumothorax or pleural effusion. The central tracheobronchial tree is patent. No lung consolidation. Right low er lobe granuloma. Hepatic steatosis. Splenomegaly. IMPRESSION: 1. Negative for acute pulmonary embolism . Specifically, there is no central pulmonary embolism. Study is nondiagnost ic for exclusion of lobar or more peripheral emboli. If there is high clin ical suspicion for pulmonary embolism, recommend repeat exam. 2. Hepatic steatosis. Berny Garcia M.D. IMG CT PROCEDURES Troponin T (11/04/2017 5:43 PM CDT) athologist Signature Troponin T, S <0.01 <0.01 ng/mL 11/04/2017 [facility] 6:03 PM CDT [facility] Comment: Biotin has been identified by the doug saucedo as a potential interfering substance. ??Higher concentr ations of biotin may be found in multivitamins, hair/nail supple ments, and workout supplements. ??If the result does not [facility] clinical observations, repeat testing after patient refrains fr om the use of supplements for at least 12 hours. Specimen Anatomical Collection Method Collection Time Receive d Time (Source) Location / / Volume Laterality Blood (Blood, 11/04/2017 5:43 PM 11/05/19 18 5:43 Venous) CDT PM CDT Berny Garcia M.D. LAB BLOOD ADD-ON Performing Organization Address City/State/ZIP Code Phon e Number [facility] [address] [place] [address] [facility] (ABNORMAL) D-Dimer (11/04/2017 5:43 PM CDT) athologist Signature D-Dimer, P 2.06 (H) <0.50 11/04/2017 [facility] mcg/mL FEU 5:59 PM CDT [facility] Comment: ----ADDITIONAL INFORMATION---- Results of this test should always be in terpreted in conjunction with the patients medical hi story, clinical presentation and other findings. ??DVT a nd PE clinical diagnosis should not be based on the D-d abby result alone. A clinical cut-off value of 0.50 mcg/mL( FEU) for PE and DVT has demonstrated a 95% confidence interv al as an aid in diagnosis. ??D-dimer should not be used as an aid in the diagnosis of VTE in patients on therapeu tic anticoagulation, following recent surgery or trauma, with disseminated malignancies, aortic aneurysm, severe in fections or sepsis, liver cirrhosis, ,or ??fibrinol ytic activity. ?? D-dimer values may increase in older sergo lts. Specimen Anatomical Collection Method Collection Time Receive d Time (Source) Location / / Volume Laterality Blood (Blood, 11/04/2017 5:43 PM 11/05/19 18 5:43 Venous) CDT PM CDT Berny Garcia M.D. LAB BLOOD ADD-ON Performing Organization Address City/State/ZIP Code Phon e Number [facility] [address] [facility] [place] [address] [facility] (ABNORMAL) CMP (Comprehensive Metabolic Panel) (11/04/2017 5:43 PM CDT) P athologist Signature Potassium, P 4.3 3.6 - 5.2 11/04/2017 [facility] mmol/L 6:03 PM [facility] Sodium, P 139 135 - 145 11/04/2017 [facility] mmol/L 6:03 PM [facility] Chloride, P 100 98 - 107 11/04/2017 [facility] mmol/L 6:03 PM [facility] Bicarbonate, P 26 22 - 29 11/04/2017 [facility] mmol/L 6:03 PM [facility] Anion Gap, P 13 7 - 15 11/04/2017 [facility] 6:03 PM [facility] BUN (Blood Urea 11 6 - 21 11/04/2017 [facility] Nitrogen), P mg/dL 6:03 PM [facility] Creatinine 0.69 0.59 - 11/04/2017 [facility] 1.04 mg/dL 6:03 PM [facility] eGFR-Black/Afri >90 >=60 11/04/2017 [facility] can Jordanian mL/min/BSA 6:03 PM [facility] Comment: ----ADDITIONAL INFORMATION---- Estimated GFR calculated using the 2009 CKD_EPI creatinine equation. eGFR Non-Black/ >90 >=60 mL/min/BSA 11/04/2017 6:03 PM [facility] Jordanian [facility] Comment: ----ADDITIONAL INFORMATION---- Estimated GFR calculated using the 2009 CKD_EPI creatinine equation. Calcium, Total, P 9.6 8.9 - 10.1 11/04/2017 6:03 PM [facility] mg/dL [facility] Glucose, P 98 70 - 140 mg/dL 11/04/2017 6:03 PM [facility] Protein, Total, P 7.5 6.3 - 7.9 g/dL 11/04/2017 6:03 P M [facility] Albumin, P 3.9 3.5 - 5.0 g/dL 11/04/2017 6:03 PM [facility] Aspartate 1084 (H) 8 - 43 U/L 11/04/2017 6:23 PM [facility] Aminotransferase (AST), P [facility] Alkaline Phosphatase, P 167 (H) 37 - 98 U/L 11/04/2017 6:0 3 PM [facility] Alanine Aminotransferase 1350 (H) 7 - 45 U/L 11/04/2017 6:2 3 PM [facility] (ALT), [facility] Bilirubin, Total, P 2.8 (H) <=1.2 mg/dL 11/04/2017 6:03 PM [facility] Specimen Anatomical Collection Method Collection Time Receive d Time (Source) Location / / Volume Laterality Blood (Blood, 11/04/2017 5:43 PM 11/05/19 18 5:43 Venous) CDT PM CDT Berny Garcia M.D. LAB BLOOD ADD-ON Performing Organization Address City/State/ZIP Code Phon e Number [facility] [address] [place] [address] [facility] ([facility]NORM[facility]) CBC with Differential (11/04/2017 5:43 PM CDT) [facility] Method Time Signature Hemoglobin 13.5 11.6 - 11/04/2017 [facility] 15.0 g/dL 5:46 PM [facility] Hematocrit 41.5 35.5 - 11/04/2017 [facility] 44.9 % 5:46 PM [facility] Erythrocytes 5.08 3.92 - 11/04/2017 [facility] 5.13 5:46 PM CDT HEALTH x10(12)/L [facility] MCV 81.7 78.2 - 11/04/2017 [facility] 97.9 fL 5:46 PM CDT [facility] RBC Distrib Width 13.9 12.2 - 11/04/2017 [facility] 16.1 % 5:46 PM CDT [facility] Platelet Count 278 157 - 371 11/04/2017 [facility] x10(9)/L 5:46 PM CDT [facility] Leukocytes 4.8 3.4 - 9.6 11/04/2017 [facility] x10(9)/L 5:46 PM CDT [facility] Neutrophils 3.37 1.56 - 11/04/2017 [facility] 6.45 5:46 PM CDT HEALTH x10(9)/L [facility] Lymphocytes 1.11 0.95 - 11/04/2017 [facility] 3.07 5:46 PM CDT HEALTH x10(9)/L [facility] Monocytes 0.23 (L) 0.26 - 11/04/2017 [facility] 0.81 5:46 PM CDT HEALTH x10(9)/L [facility] Eosinophils 0.07 0.03 - 11/04/2017 [facility] 0.48 5:46 PM CDT HEALTH x10(9)/L [facility] Basophils 0.03 0.01 - 11/04/2017 [facility] 0.08 5:46 PM CDT HEALTH x10(9)/L [facility] Specimen Anatomical Collection Method Collection Time Receive d Time (Source) Location / / Volume Laterality Blood (Blood, 11/04/2017 5:43 PM 11/05/19 18 5:43 Venous) CDT PM CDT Berny Garcia M.D. LAB BLOOD ADD-ON Performing Organization Address City/State/ZIP Code Phon e Number [facility] [address] [facility] [place] [address] [facility] DX Chest AP or PA and Lateral 2 Views (11/04/2017 5:32 PM CDT) Anatomical Region Laterality Modality Chest N/A Digital Radiography Specimen (Source) Anatomical Collection Method Collection Time Re ceived Time Location / / Volume Laterality 11/05/2017 7:17 AM CDT Impressions 11/05/2017 7:25 AM CDT IMPRESSION: Cardiac silhouette is not enlarged. Pulmonary vasculature is unremarkable. No pneumothorax, focal erasmo g consolidation or pleural effusion. Narrative 11/05/2017 7:25 AM CDT EXAM: DX CHEST AP OR PA AND LATERAL 2 VIEWS Procedure Note Cedric Lozada M.D. - 11/05/2017Formatt ing of this note might be different from the original. EXAM: DX CHEST AP OR PA AND LATERAL 2 EWS IMPRESSION: Cardiac silhouette is not en larged. Pulmonary vasculature is unremarkable. No pneumothorax, focal erasmo g consolidation or pleural effusion. Berny Garcia M.D. IMG DIAGNOSTIC IMAGING PROCE DURES ECG 12 Lead (11/04/2017 5:09 PM CDT) P athologist Signature Ventricular Rate 76 BPM MUSE ECG/Min OK Interval 158 ms MUSE QRSD Interval 82 ms MUSE QT Interval 358 ms MUSE QTC Interval 402 ms MUSE P [place] 47 degrees MUSE R [place] 38 degrees MUSE T Wave [place] 33 degrees MUSE Specimen Anatomical Collection Method Collection Time Receive d Time (Source) Location / / Volume Laterality 11/04/2017 5:09 PM 8 5:43 CDT PM CDT Impressions MUSE - 11/04/2017 5:43 PM CDT Normal sinus rhythm with sinus arrhythmia Otherwise normal ECG No previous ECGs available Narrative This result has an attachment that is no t available. Berny Garcia M.D. ECG ORDERABLES Performing Organization Address City/State/ZIP Code Phon e Number MUSE MUSE NA documented in this encounter Visit Diagnoses Diagnosis Pleurisy - Primary documented in this encounter Administered Medications Inactive Administered Medications - up to 3 most recent administrations Medication Order MAR Action Action Date Dose Rate Site iohexol 350 mg iodine/mL Given 11/04/2017 6:55 PM 125 mL Right Antecubital solution 125 mL CDT (for_OMNIPAQUE) 125 mL, intravenous, Once in imaging, contrast, Starting on Bryanna 11/04/17 at 1821, For 1 dose ketorolac injection 30 mg Given 11/04/2017 12:00 AM CDT 30 mg Right Antecubital (for_TORADOL) 30 mg, intravenous, Once, On Bryanna 11/04/17 at 1812, For 1 dose, Adult IV push rate: Over 15 seconds. Peds IV push rate: Over 1 minute. 60 mg dose only for IM, not recommended for IV., Drug Monitoring Program: Pharmacist to adjust medication order based on comorbities and indication. lidocaine viscous-antacid 1:1 suspension 45 mL Given 0 11/04/2017 5:23 PM CDT 45 mL (for_GI COCKTAIL) 45 mL, oral, Once, On Bryanna 11/04/17 at 1721, For 1 dose NaCl 0.9 % bolus 55 mL New Bag 11/04/2017 6:22 PM CDT 55 mL Right Antecubital 55 mL, intravenous, Once, On Bryanna 11/04/17 at 1822, For 1 dose NaCl 0.9% infusion New Bag 11/04/2017 6:33 PM 100 mL/hr 100 mL/hr Right Ant ecubital 100 mL/hr, CDT intravenous, Continuous, Starting on Bryanna 11/04/17 at 1809, For Hydration predniSONE tablet 40 mg (for_DELTASONE) Given 11/04/2017 8:43 PM CDT 40 mg 40 mg, oral, Once, On Bryanna 11/04/17 at 203, For 1 dose sodium chloride injection 10 Given 11/04/2017 8:09 PM CDT 10 mL Right Antecubital mL 10 mL, intravenous, As needed, line care, Starting on Bryanna 11/04/17 at 1821 documented in this encounter Active and Recently Administered Medications Times are shown in CDT. Scheduled Medication Order 11/02/2017 11/03/2017 11/04/2017 ketorolac injection 30 mg (for_TORADOL) (COMPLETED) 0000 (Given - Provider: Hoda Pnoce R.N.) 30 mg, intravenous, Once, Bryanna 11/04/17 at 1812, For 1 dose, Adult IV push rate: Over 15 seconds. Peds IV push rate: Over 1 minute. 60 mg dose only for IM, not recommended for IV., Drug Monitoring Program : Pharmacist to adjust medication order based on comorbities and indication. lidocaine viscous-antacid 1:1 suspension 45 mL (for_GI COCKTAIL) (COMPLETED) 172 (Given - Provider: Hoda Ponce R.N.) 45 mL, oral, Once, Bryanna 11/04/17 at 1721, For 1 dose NaCl 0.9 % bolus 55 mL (COMPLETED) 182 (New Bag - Provider: Marlene Garcia(R))2043 (Stopped - Provider: Hoda Ponce R.N.) 55 mL, intravenous, Once, Bryanna 11/04/17 at 1822, For 1 dose predniSONE tablet 40 mg (for_DELTASONE) (COMPLETED) 2042 (Given - Provider: Hoda Ponce R.N.) 40 mg, oral, Once, Bryanna 11/04/17 at 203, For 1 dose Continuous Medication Order 11/02/2017 11/03/2017 11/04/2017 NaCl 0.9% infusion 183 (New Bag - Provider: Hoda Ponce R.N.)2043 (Stopped - Provider: Hoda Ponce R.N.) 100 mL/hr, intravenous, at 100 mL/hr, Co ntinuous, Starting Bryanna 11/04/17 at 1809, For Hydration PRN Medication Order 11/02/2017 11/03/2017 11/04/2017 iohexol 350 mg iodine/mL solution 125 mL (for_OMNIPAQUE) (COMPLE PRASHANT) 1854 (Given - Provider: Marlene Garcia(R)) 125 mL, intravenous, Once in imaging, co ntrast, Starting Bryanna 11/04/17 at 1821, For 1 dose sodium chloride injection 10 mL 2008 (Given - Provider: Marlene Garcia(R)) 10 mL, intravenous, As needed, line care, Starting Bryanna 11/04/17 a t 1821 documented in this encounter Additional Health Concerns Assessment Noted Time PHQ-9 Depression Total Score: 7 04/07/2017 9:39 AM CDT documented as of this encounter Care Teams Real Estate Attorney Relationship Specialty Start Date End Date Blaire Bundy P.A.-C. PCP - General 02/04/17 04/26/19 documented as of this encounter
--- OUTSIDE RECORDS SUMMARY | 2022-06-29 09:30 | XMS_ITS | Encounter Summary ---
:1985 Author Organization [facility] Address [address] [place] [address] Care Team Providers Name Role Phone Blaire Bundy P.A.-C. Primary Care Provider [phone] Reason for Visit Reason Comments Communication [facility] hospital follow-up Encounter Details Date Type Department Care Team Description 09/10/2017 Clinical Department of Suellen Beasley on ([facility] Internal R, R.N. hospital follow-up) Medicine in [address] [place] [address], [address] [place] [address] [place] [phone] (Work) [phone] Social History Tobacco Use Types Packs/Day Years [...] or relatives? How often do you attend lutheran or lutheran More than 4 time s per year 07/09/2020 services? Do you belong to any clubs or organizations No 04/19/2019 such as lutheran groups, unions, fraternal or athletic groups, or [...] to pay for the very basics like [employer] hat hard 07/09/2020 food, housing, medical care, [...] Miscellaneous Notes Telephone Encounter - Suellen Beasley RBrittaneyN. - 09/10/2017 8:02 AM CST See previous note, duplicate. MERIZATION ENGINEER Telephone Encounter - Suellen Beasley R.N. - 09/10/2017 7:40 AM CST Discharge date 09/09/17 at 1230. Reason for hospitalization Appendicitis acute. Follow up scheduled for 09/20/17. 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 PCP - General 02/04/17 04/26/19 documented as of this encounter
--- OUTSIDE RECORDS SUMMARY | 2022-06-29 09:30 | XMS_ITS | Encounter Summary ---
:1985 Author Organization [facility] Address [address] [place] [address] Care Team Providers Name Role Phone Blaire Bundy P.A.-C. 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 PCP - General 02/04/17 04/26/19 documented as of this encounter
--- OUTSIDE RECORDS SUMMARY | 2022-06-29 09:31 | XMS_ITS | Encounter Summary ---
:1985 Author Organization [facility] Address [address] [place] [address] Care Team Providers Name Role Phone Unavailable Primary Care Provider Unavailable Encounter Details Date Type Department Care Team Description 01/07/2017 Hospital Encounter HX [facility] M[facility] [address] [place] [phone] (Wo rk) Social History Tobacco Use Types Packs/Day Years Used Date Smoking Tobacco: Some Days Alcohol Habits Answer Date Recorded How often [...] How often do you attend adventism or moravian More than 4 time s per year [...] Sign Reading Time Taken Comments Blood Pressure 140/58 01/07/2017 8:55 AM CDT Pulse 107 01/07/2017 8:51 AM CDT Temperature - - Respiratory Rate 18 01/07/2017 8:51 AM CDT Oxygen Saturation - - Inhaled Oxygen Concentration - - Weight - - Height 158 cm (5' 2.21) 01/07/2017 8:55 AM CDT Body Mass Index - - documented in this encounter Medications at Time of Discharge Medication Sig Dispensed Refills Start Date End Date ACETAMINOPHEN/DEXTROMETHORP Take by mouth. 0 /04/201707/29/2017 SANDOVAL (ACETAMINOPHEN-DM ORAL) PNV NO.95/FERROUS FUM/FOLIC Take by mouth 0 11/0607/29/2017 AC ( MULTIVITAMINS daily. ORAL) documented as of this encounter Progress Notes Leonora Holman M.D. - 01/07/2017 6:36 AM CDT Clinic Full Note CHIEF COMPLAINT/REASON FOR VISIT URI for 1 month Cough productive green 14-15 weeks preg Would like note to be off work HISTORY OF PRESENT ILLNESS CC: 31 y.o. female with history of current , Headache Migraine,Dysthymic Disorder, Abuse Tobacco Smoking NOS, Body Mass Index (BMI) 50.0-59.9 Adult presents with cough that has lasted about one month. HPI: Patient reports that she has had a cough for about one month. At times it is productive of green-yellow thick sputum. She has developed associated abdominal pain with coughing. She states that she has been coughing so hard at times that she throws-up or looses bladder control. She has had constant SOB, and difficulty breathing. It is hard for her to take a deep breath. She heard wheezing a few days ago, this was not audible to others. She notes increased nasal congestion that started today. Bilateral ear pain that started last night. Reports occasional rhinorrhea. She states that her co-workers told her she looked worse overnight last night while working. She tried Claritin in the beginning of this illness which was not helpful. She denies associated headache and reports her chronic migraines have been well controlled. She denies facial pain. She quit smoking about one month ago. Patient also reports pedal edema with an onset close in time to her . She is about 14-15 weeks . She wonders if she should be concerned with the edema. She denies prior history of pre-eclampsia. She reports her blood pressure increased toward the end of her prior . MEDICATIONS Multivitamins, PO, Daily Tylenol, PO ALLERGIES penicillins PAST MEDICAL HISTORY Chronic Abuse Tobacco Smoking NOS Body Mass Index (BMI) 50.0-59.9 Adult Dysthymic Disorder Headache Headache Migraine Historical PROCEDURES/SURGICAL HISTORY Pap smear (01/25/2013), Pap smear (01/25/2013). SOCIAL HISTORY Date Time: 01/07/2017 08:51 Tobacco: Smoking Status: Former smoker Exposure: No Results Found Alcohol: Use: No Results Found Recreational Drugs: Use: None Type: No Results Found FAMILY HISTORY Mother:Positive: Hypothyroidism Negative: Anesthesia; Bleeding disorder; Blindness AND/OR vision impairment level; Cataract; Diabetic retinopathy; Glaucoma; Hearing loss; Macular disease Father:Positive: Myocardial infarction Negative: Anesthesia; Bleeding disorder; Blindness AND/OR vision impairment level; Cataract; Diabetic retinopathy; Glaucoma; Hearing loss; Macular disease Sister:Positive: Cystic fibrosis Negative: Anesthesia; Bleeding disorder; Hearing loss Grandmother (paternal, at 65 year(s)):Positive: CA - Lung cancer Grandfather (maternal):Positive: Cancer Grandmother (maternal):Positive: Cancer Brother: Negative: Anesthesia; Bleeding disorder; Hearing loss SYSTEMS REVIEW General: Denies any wt changes, weakness, fatigue, fever, chills. Head: Denies headaches, dizziness, injury. Eyes: Denies vision changes, diplopia, pain, redness. Ears: Reports bilateral ear pain which started last night. Denies hearing changes, tinnitus, or discharge. Nose: Nasal congestion started last night and occasional rhinorrhea. Denies pain, epistaxis, sinus pain. Mouth and Throat: Reports sore throat. Denies frequent colds, hoarseness, dysphagia, tooth, tongue or mouth pain, bleeding gums. Neck: Denies any masses, pain, stiffness. Respiratory: As per HPI. Cardiovascular: Denies chest pain, palpitations, orthopnea, orthostasis. VITAL SIGNS T: 36.5 ??C (Core) HR: 107 RR: 18 BP: 140 / 58 HT: 158 cm PHYSICAL EXAMINATION General: Obese, well groomed, pleasant, A + O x 4. Eyes: PERRL, conjunctiva clear, anicteric. Ears: Tympanic membranes clear, visible light reflex, no erythema, no discharge, no effusion. Nose: No erythema, no discharge, nares patent. Throat: Oropharynx clear, minimal pharyngeal erythema, no exudate, moist mucous membranes, tonsils present +1-+2 bilaterally. Neck: Supple, no LAD, no JVD, no masses. No carotid bruits. Cardiovascular: Regular rate and rhythm, no murmurs rubs or gallops. Respiratory: Clear to auscultation bilaterally, no rales, rhonchi, wheezes. Extremities: 2+ peripheral pulses bilaterally, +1 bilateral pedal edema, no clubbing or cyanosis. Neuro: CN II-XII grossly intact. Psych: Patient has normal speech and thought processes. Mood appears well. Full affect observed. LAB RESULTS -----URINE/STOOL----- UA Color: Yellow UA Clarity: Clear UA Spec Grav: 1.010 UA pH: 6.0 UA Protein: Negativ UA Glucose: Negativ UA Ketones: Negativ UA Bili: Negativ UA Urobilinogen: 0.2 UA Blood: Negativ UA Nitrite: Negativ UA Leuk Est: Smal Abnormal UR WBC: 4-10 UR RBC: None Seen UR Squamous Epi Cells: 4-10 UR Bacteria: Present Abnormal UR Mucous: Present Abnormal Report 07-Jan-2017 09:53:00 Exam: Chest-Single View Indications: cough x 1 month 07-Jan-2017 10:10 CA EXAM: Chest 1 view IMPRESSION: Patient's chin partially obscures the right lung apex. No cardiomegaly or lung infiltrate. Kendal Lozada MD 07-Jan-2017 10:10 [4] IMPRESSION/REPORT/PLAN 1. Infection Upper Respiratory (URI) Discussed with patient that there does not appear to be a bacterially infectious process occurring at this time. Chest x-ray did not show abnormalities. Possible that she has either a postinfectious cough and/or that her smoking cessation has allowed the cillia in her lungs to start to work better once again causing cough. Recommended patient be treated symptomatically with either dextromethorphan or guaifenesin, and nasal saline. Instructed patient to ensure if she uses cough syrup that she shouldread the label to make sure there are no other active ingredients. She should return for worsening sy mptoms or associated fever. Ordered: OV Est Pt Level 4 - 87638 - 25 min 2. Elevated Blood Pressure (EBP) NOS Discussed elevated blood pressure with patient. Reviewed previous and current urinalysis today. Noted trace urine protein on last urinalysis. Protein negative today. Recommended patient return for nurse visit to recheck blood pressure tomorrow and follow-up with OB as they have recommended. Also recommended patient return for immediate examination if she experiences new headache or visual disturbances. Patient indicated understanding and is agreeable to plan. Ordered: OV Est Pt Level 4 - 40479 - 25 min 3. High Risk NOS As per #2. Recommended f/u with OB. Ordered: OV Est Pt Level 4 - 50466 - 25 min Cough NOS Infection Urinary Tract (UTI) NOS FOOTNOTES [1] ; PUNEET LEWIS RN 01/07/2017 10:41 CDT [2] ; PUNEET LEWIS RN 01/07/2017 10:41 CDT [3] ; PUNEET LEWIS RN 01/07/2017 10:41 CDT [4]XR Chest 1 view; PUNEET ESPINOZA RT (R) 01/07/2017 09:47 CDT [5] ; PUNEET LEWIS RN 01/07/2017 10:41 CDT [6] ; PUNEET LEWIS RN 01/07/2017 10:41 CDT Electronically Signed By: LEONORA HOLMAN MD On: 01/14/2017 06:39 AM Source: [facility] POWERCHART Document Id: [id number] documented in this encounter H&P Notes Puneet Lewis, R.N. - 01/07/2017 10:41 AM CDT Puneet Lewis RN, [employer] Nurse Practitioner Residency Program CC: 31 y.o. female with history of current , Headache Migraine,Dysthymic Disorder, Abuse Tobacco Smoking NOS, Body Mass Index (BMI) 50.0-59.9 Adult presents with cough that has lastedabout one month. HPI: Patient reports that she has had a cough for about one month. At times it is productive of green-yellow thick sputum. She has developed associated abdominal pain with coughing. She states that shehas been coughing so hard at times that she throws-up or looses bladder control. She has had constant SOB, and difficulty breathing. It is hard for her to take a deep breath. She heard wheezing a few days ago, this was not audible to others. She notes increased nasal congestion that started today. Bilateral ear pain that started last night. Reports occasional rhinorrhea. She states that her co-workers told her she looked worse and worse overnight last night while working. He tried Claritin in the beginning of this illness which was not helpful. She denies associated headache and reports her chronicmigraines have been well controlled. She denies facial pain. She quit smoking about one month ago. Patient also reports pedal edema with an onset close in time to her . She is about 14-15 weeks . She wonders if she should be concerned with the edema. She denies prior history of pre-eclampsia. She reports her blood pressure increased toward the end of her . PMH: Medications: Multivitamins, PO, Daily Tylenol, PO, PRN Allergies: penicillins Environmental/Occupational Conditions: Works in [employer] at [employer]. Social History: Patient reports smoking cessation about one month ago. Denies alcohol use. Has one living child. ROS: General: Denies any wt changes, weakness, fatigue, fever, chills. Head: Denies headaches, dizziness, injury. Eyes: Denies vision changes, diplopia, pain, redness. Ears: Reports bilateral ear pain which started last night. Denies hearing changes, tinnitus, or discharge. Nose: Nasal congestion started last night and occasional rhinorrhea. Denies pain, epistaxis, sinus pain. Mouth and Throat: Reports sore throat. Denies frequent colds, hoarseness, dysphagia, tooth, tongue or mouth pain, bleeding gums. Neck: Denies any masses, pain, stiffness. Respiratory: As per HPI. Cardiovascular: Denies chest pain, palpitations, orthopnea, orthostasis. Physical Exam Vitals: T: 36.5, P: 107, RR: 18, BP: 144/95 General: Obese, well groomed, pleasant, A + O x 4. Eyes: PERRL, conjunctiva clear, anicteric. Ears: Tympanic membranes clear, visible light reflex, no erythema, no discharge, no effusion. Nose: No erythema, no discharge, nares patent. Throat: Oropharynx clear, minimal pharyngeal erythema, no exudate, moist mucous membranes, tonsils present +1-+2 bilaterally. Neck: Supple, no LAD, no JVD, no masses. No carotid bruits. Cardiovascular: Regular rate and rhythm, no murmurs rubs or gallops. Respiratory: Clear to auscultation bilaterally, no rales, rhonchi, wheezes. Extremities: 2+ peripheral pulses bilaterally, +1 bilateral pedal edema, no clubbing or cyanosis. Neuro: CN II?XII grossly intact. Psych: Patient has normal speech and thought processes. Mood appears well. Full affect observed. Labs and Studies Chest x-ray: negative, see official read Urinalysis UA Color: Yellow UA Clarity: Clear UA Spec Grav: 1.010 UA pH: 6.0 UA Protein: negative UA Glucose: negative UA Ketones: negative UA Bili: negative UA Urobilinogen: 0.2mg/dL UA Blood: negative UA Nitrite: negative UA Leuk Est: small UA WBC: 4-10/HPF UA RBC: none seen UA Squamous Epi Cells: 4-10/HPF UA Bacteria: present UA Mucous: present Assessment and Plan: 1) Viral Upper Respiratory Infection Discussed with patient that there does not appear to be a bacterially infectious process occurring at this time. Chest x-ray did not show abnormalities. Possible that she has either a postinfectious cough and/or that her smoking cessation has allowed the cillia in her lungs to start to work better once again causing cough. Recommended patient be treated symptomatically with either dextromethorphan orguaifenesin, and nasal saline. Instructed patient to ensure if she uses cough syrup that she should read the label to make sure there are no other active ingredients. She should return for worsening symptoms or associated fever. 2) Hypertension of Discussed elevated blood pressure with patient. Reviewed previous and current urinalysis today. Noted trace urine protein on last urinalysis. Protein negative today. Recommended patient return for nurse visit to recheck blood pressure tomorrow and follow-up with OB as they have recommended. Also recommended patient return for immediate examination if she experiences new headache or visual disturbances. Patient indicated understanding and is agreeable to plan. Electronically Signed By: PUNEET LEWIS RN On: 01/19/2017 03:46 PM Modified by and Electronically Signed by: PUNEET LEWIS RN On: 01/07/2017 11:03 AM Co-Signed By: LEONORA HOLMAN MD On: 01/24/2017 09:59 PM Source: [facility] [employer] Document Id: [id number] documented in this encounter Miscellaneous Notes Miscellaneous - Puneet Lewis R.N. - 01/07/2017 11:59 AM CDT Care Coordination Message From: PUNEET LEWIS RN To: LEONORA VILLASEÑOR CNP, RN; Sent: 01/07/2017 11:59:39 CDT Subject: Care Coordination Message Janki Lea, Just wanted to let you know that I saw Puneet this morning with Dr. Leonora Brito. Her blood pressure remains elevated, urine protein was negative today. We recommended that she return tomorrow to check her blood pressure with a nurse and schedule a follow-up with you as you have recommended for normal care. Thanks, Puneet Lewis (DNP student) Source: [facility] [employer] Document Id: [id number] Miscellaneous - Leonora Holman M.D. - 01/07/2017 10:03 AM CDT Ambulatory Patient Summary [address] [place] [id number] Visit Information Name: PUNEET CLAYTON [facility] Number: [id number] Current Date: 01/07/2017 10:03:11 Physicians Attending Provider: LEONORA HOLMAN MD Primary Care Provider: CATRACHO NAZARIO PA-C PUNEET CLAYTON has been given the following list of follow-up instructions, medication list, and patient education materials: Follow-up Instructions Your Medications Here is a list of your medications. It is important to take your medications as directed. Use a pillbox or chart to help remind you to take your medications. Please let your doctor or nurse know if you have problems taking your medications. Medication/Strength How to Take Indications/Special Instructions/Comments/Notes for Patient Medication Changes/Routing acetaminophen (Tylenol) Oral multivitamin, ( Multivitamins) Oral, once a day Stop Taking the Following Medications: Medication list as of 01-07-17 10:03 Attention: If you have any medications at home that are not on this list, DO NOT take them until youcontact your provider for clarification. Give a copy of your medication list to your primary care provider. Update your medication list any time medications or doses are changed and carry your medication list at all times in case of emergency. Electronically Signed By: LEONORA HOLMAN MD Signed On:07-JAN-2017 10:01:26 Your Allergies & Intolerances Substance Reaction Symptoms Category Comments penicillins Drug Your Problem List Problem Status Onset Comments Headache Migraine Active 01/21/2012 Headache Active 10/24/2007 11/18/13 Headache Dysthymic Disorder Active 08/01/2010 11/18/13 Dysthymic disorder Abuse Tobacco Smoking NOS Active Body Mass Index (BMI) 50.0-59.9 Adult Active Active 10/03/2016 Your Upcoming Appointments Date Time Location Provider No Appointments found Attention: Contact your local Clinic if further appointment detail needed. Consider Using Patient Online Services Patient Online Services is a secure online and Mobile application that lets you: ?? View lab and test results ?? View portions of your medical record including clinical notes, immunizations and discharge summaries ?? Request an appointment or medication refill ?? Review your appointment schedule ?? Send secure messages to your care team Its easy to create an account if you dont have one. Go to [email or web address] and click on Create Your Account. Then, follow the directions to complete the online form. Youll be asked for your [facility] number which you can find at the top of this document. Your Goals/Additional instructions: Source: [facility] POWERCHART Document Id: [id number] Miscellrenee - Leonora Holman M.D. - 01/07/2017 10:03 AM CDT Ambulatory Discharge Medication List [address] [place] [id number] Visit Information Name: PUNEET CLATYON [facility] Number: [id number] Current Date: 01/07/2017 10:03:10 Attending Provider: LEONORA HOLMAN MD Primary Care Provider: CATRACHO NAZARIO PA-C PUNEET CLAYTON has been given the following list of medications: Your Medications It is important to take your medications as directed. Use a pill box or chart to help remind you to take your medications. Please let your doctor or nurse know if you have problems taking your medications. Medication/Strength How to Take Indications/Special Instructions/Comments/Notes for Patient Medication Changes/Routing acetaminophen (Tylenol) Oral multivitamin, ( Multivitamins) Oral, once a day Stop Taking the Following Medications: Medication list as of 01-07-17 10:03 Attention: If you have any medications at home that are not on this list, DO NOT take them until youcontact your provider for clarification. Give a copy of your medication list to your primary care provider. Update your medication list any time medications or doses are changed and carry your medication list at all times in case of emergency. Electronically Signed By: LEONORA HOLMAN MD Signed On:07-JAN-2017 10:01:26 Additional Information: Source: [facility] POWERCHART Document Id: [id number] Leilani - Leonora Holman M.D. - 01/07/2017 10:01 AM CDT Work Excuse January 07, 2017 PUNEET CLAYTON [address] [place] [phone] Dear PUNEET CLAYTON, You were examined in my office on: 01/07/2017 Reason for work excuse: Medical Illness ( X ) Yes ( _ ) No Injury ( _ ) Yes ( _ ) No Is excused from all work: ( X ) Yes ( _ ) No Has work limitations: ( _ ) Yes ( _ ) No As follows: _ Limitations apply until: _ Follow-Up Appointment : ( _ ) Return to Work date: 01/08/2017 Notes: Please excuse patient from work today due to acute illness. Sincerely, LEONORA ABAD [address] [place] [id number] Electronic Signature Electronically Signed By: LEONORA HOLMAN MD On: January 07, 2017 This document has images extracted. Source: [facility] [employer] Document Id: [id number] Miscellaneous - Roosevelt Louise L.P.N. - 01/07/2017 8:55 AM CDT Ambulatory Vitals Height Weight Ambulatory Vitals Height Weight Entered On: 01/07/2017 8:57 CDT Performed On: 01/07/2017 8:55 CDT by ROOSEVELT LOUISE LPN Vitals/Ht/Wt Systolic Blood Pressure : 140 mmHg Diastolic Blood Pressure : 58 mmHg NIBP Mean : 85 mmHg BP Location : Left upper extremity Blood Pressure Cuff Size : Large Height : 158 cm(Converted to: 5 ft 2 inch(es), 62 inch(es)) ROOSEVELT LOUISE LPN - 01/07/2017 8:55 CDT [facility] Document Id: [id number] CDT!8 Miscellaneous - Roosevelt Louise L.P.N. 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 Intake/History Entered On: 01/07/2017 8:54 CDT Performed On: 01/07/2017 8:51 CDT by DANI, ROOSEVELT L REVENUE COORDINATOR Intake Chief Complaint : URI for 1 month Cough productive green 14-15 weeks preg Would like note to be off work DANIROOSEVELT MENDOZA [employer] REVENUE COORDINATOR - 01/07/2017 8:59 CDT Temperature Core : 36.5 DegC(Converted to: 97.7 DegF) Peripheral Pulse Rate : 107 /min (HI) Respiratory Rate : 18 /min Heart Rhythm : Regular Systolic Blood Pressure : 144 mmHg (HI) Diastolic Blood Pressure : 95 mmHg (>HHI) NIBP Mean : 111 mmHg BP Location : Left upper extremity Blood Pressure Cuff Size : Large Height : 158 cm(Converted to: 5 ft 2 inch(es), 62 inch(es)) DANIROOSEVELT MENDOZA [employer] REVENUE COORDINATOR - 01/07/2017 8:51 CDT General Info Information Given By : Patient Languages : Cambodian Is Patient Female and 13-50 no hysterectomy : No DANIROOSEVELT Apollo RODRIGUEZN - 01/07/2017 8:51 CDT Subjective Pain Symptoms : Yes ROOSEVELT LOUISE LPN - 01/07/2017 8:51 CDT Pain Scale Pain Scale Verbal 0-10 : Open DANI ROOSEVELT Apollo RODRIGUEZN - 01/07/2017 8:51 CDT Pain Pain Assessment Grid Pain 1 Location : Throat Laterality : Bilateral Intensity : 5 ROOSEVELT LOUISE LPN - 01/07/2017 8:51 CDT Dependent Habits Smoking Status : Former smoker Tobacco 2A : Yes Tobacco Use/Currently Using : No Tobacco Use/Last 30 Days : No Tobacco Use/Last 12 months : No Tobacco Last Use/Month : November Tobacco Last Use/Year : 2016 ROOSEVELT LOUISE LPN - 01/07/2017 8:51 CDT Caffeine Use Grid Caffeine Use : Current Type : Coffee, Soft drinks Frequency : Occasionally ROOSEVELT LOUISE LPN - 01/07/2017 8:51 CDT Recreational Drug Use Grid Drug Use : None ROOSEVELT LOUISE LPN - 01/07/2017 8:51 CDT [facility] Document Id: [id number] CDT!3 documented in this encounter Plan of Treatment Scheduled Procedures Name Priority Associated Diagnoses Date/Time COLONOSCOPY Diarrhea documented as of this encounter Procedures Procedure Name Priority Date/Time Associated Comments Diagnosis URINALYSIS, ROUTINE Routine 01/07/2017 9:21 AM Re sults for this CDT procedure are i n the results section. URINE MICROSCOPIC Routine 01/07/2017 9:21 AM Resu lts for this CDT procedure are i n the results section. documented in this encounter Results (ABNORMAL) Urine Microscopic (01/07/2017 9:21 AM CDT) Patholo gist Method Time Signature HXUR WBC. 4-10 HPF POWERCHART HXUR RBC. None Seen HPF POWERCHART Squamous 4-10 HPF POWERCHART Epithelial HXUR Bacteria, Present (A) POWERCHART Mucus Present (A) POWERCHART Specimen Anatomical Collection Method Collection Time Receive d Time (Source) Location / / Volume Laterality Urine, First 01/07/2017 9:21 AM 7 9:21 Voided CDT AM CDT Leonora Abad M.D. LAB URINE ORDERABLES Performing Organization Address [facility] Phon e Number POWERCHART (ABNORMAL) Urinalysis, Routine (01/07/2017 9:21 AM CDT) P athologist Signature Clarity Clear Clear POWERCHART HXUr Color Yellow Colorless POWERCHART Specific 1.010 POWERCHART [place], POCT, U Comment: Reference Range Specific [place]: 1.000-1.035 pH, POCT, Urine 6.0 <5.0 POWERCHART Comment: Reference Range pH: 5.0-8.0 Protein, Ur, Dip Negative Negative MGDL POWERCHAR T Glucose Negative Negative MGDL POWERCHART Ketones, QL(U) Negative Negative MGDL POWERCHART HXBILIRUBIN Negative Negative POWERCHART HXBLOOD Negative Negative POWERCHART Leukocyte Esterase Small (A) Negative POWERCHART HXNITRITE Negative Negative POWERCHART Urobilinogen 0.2 0.2 MGDL POWERCHART Comment: Reference Range Urobilinogen: 0.2-1.0 mg/dL Specimen (Source) Anatomical Collection Method Collection Time Re ceived Time Location / / Volume Laterality Urine, First 01/07/2017 9:21 AM Voided CDT Leonora Abad M.D. LAB URINE ORDERABLES Performing Organization Address [facility]/ZIP Code Phon e Number POWERCHART documented in this encounter Visit Diagnoses Not on filedocumented in this encounter Additional Health Concerns Assessment Noted Time PHQ-9 Depression Total Score: 11 12/13/2014 9:50 AM CD T documented as of this encounter
--- OUTSIDE RECORDS SUMMARY | 2022-06-29 09:31 | XMS_ITS | Encounter Summary ---
:1985 Author Organization [facility] Address [address] [place] [address] Care Team Providers Name Role Phone Catracho Bundy P.A.-C. Primary Care Provider [phone] Encounter Details Date Type Department Care Team Description 06/08/2017 Hospital Encounter HX [facility] Leonora Melchor, Maureen TARIQ, C.N.P. [address] [place], [place] [phone] (Wo rk) Social History Tobacco Use Types Packs/Day Years Used Date Smoking Tobacco: Light Smoker Alcohol Habits Answer Date Recorded How often [...] How often do you attend zoroastrian or advent More than 4 time s [...] Sign Reading Time Taken Comments Blood Pressure 126/80 06/08/2017 9:05 AM CDT Pulse - - Temperature - - Respiratory Rate - - Oxygen Saturation - - Inhaled Oxygen Concentration - - Weight 149 kg (328 lb 14.8 oz) 06/08/2017 9:05 AM CDT Height 158 cm (5' 2.21) 06/08/2017 9:05 AM CDT Body Mass Index 59.77 06/08/2017 9:05 AM CDT documented in this encounter Medications at Time of Discharge Medication Sig Dispensed Refills Start Date End Date ACETAMINOPHEN/DEXTROMETHORP Take by mouth. 0 03/0 04/201707/29/2017 SANDOVAL (ACETAMINOPHEN-DM ORAL) PNV NO.95/FERROUS FUM/FOLIC Take by mouth 0 11/0607/29/2017 AC ( MULTIVITAMINS daily. ORAL) documented as of this encounter Progress Notes Leonora Villaseñor R.N., WHNP-BC - 06/08/2017 9:21 AM CDT This patient is here at 37 weeks. She states that she is getting ready at home. Childbirth Ed. Classes attended: Early n, Baby Care/Nutrition n, Labor and delivery n, n, Review n, Sibling n Carseat: Has one ready to go, knows how to use it yes. Plans to breastfeed her baby, has pump. needs parts. Rx given. Baby Doctor: tay jeffers. Son sees Shyann Lara NP in [place]. Circumcision: yes Control plans: undecided. planning tubal if needs , vasectomy otherwise. Interested in Mirena IUD for period control. Plans tubal ligation see above Financial issues: no problems. Understands signs and symptoms of labor, knows phone numbers to call, where to go when in labor, etc. plan discussed. yes Discussed warning signs of . Referral status: none position: vertex via ultrasound in [place]. Electronically Signed By: LEONORA VILLASEÑOR R.N., WHNP-BC On: 06/08/2017 09:29 AM Source: [facility] POWERCHART Document Id: [id number] documented in this encounter Nursing Notes VoCleopatra corona L.P.N. - 06/08/2017 9:02 AM CDT Ambulatory Patient Education The following Patient Education Materials have been given to the patient: Patient Education Materials: Catalyst Plant Supervisor What Is Group B Strep? Catalyst Plant Supervisor What Is Group B Strep? Group B strep (streptococcus) is a common bacteria. It can grow in a womans vagina, rectum, or urinary tract. It is almost always harmless in adults. But in rare cases, a woman who has group B strep can infect her baby during the . Infection can cause serious illness in the . The good newsis that treating the mother during labor reduces the risk of the baby becoming infected. And if a is infected, the infection can be treated. Facts About Group B Strep Learning more about group B strep can help you understand how testing and treatment can help. Here are some basic facts about group B strep: ?? It is not a sexually transmitted disease. ?? It is not the same as strep throat. (This is caused by group A strep.) ?? It often has no symptoms and may cause no problems in adults. ?? Test results can be misleading. They may be positive one week and negative the next week. ?? Group B strep can be transmitted during vaginal delivery. It cannot be passed during (surgical) . ?? A mother with group B strep rarely infects her . (Infection occurs only about 1% to 2% of the time.) ?? When a mother is treated during labor and delivery, her baby almost never becomes infected. ?? Certain factors during increase the risk of a baby becoming infected. Possible Effects on Your Baby Group B strep can infect the blood. It can also cause inflammation of the babys lungs, brain, or spinal cord. Long-term effects can include blindness, deafness, intellectual disability, or cerebral palsy. And in rare cases, infection causes . Infection is most often detected soon after the baby is born. How Your Baby May Become Infected Group B strep often lives in the vagina or rectum. If the amniotic sac breaks early, bacteria from the vagina can travel to the uterus, reaching the baby. Or, as the baby passes through the canal, it can come in contact with the bacteria. In rare cases, group B strep can also be passed to the baby after delivery. The source of this type of infection is not well understood. What Increases the Risk? Certain risk factors increase the chance that a baby will be infected. They include: ?? Breaking or leaking of the amniotic sac earlier than 37 weeks gestation ?? Labor earlier than 37 weeks gestation ?? Breaking of the amniotic sac more than 18 hours before labor begins ?? Fever during labor ?? A urinary tract infection with group B strep at any point in the ?? A previous baby born with a group B strep infection ?? [id number] [facility], [address] [place] [address], [place] [address]. All rights reserved. This information is not intended as a substitute for professional medical care. Always follow your healthcare professional's instructions. This document has images extracted. Please consider using [employer] for all your patient education needs. Source: [facility] POWERCHART Document Id: [id number] documented in this encounter Miscellaneous Notes Miscellaneous - Leonora Villaseñor R.N., WHNP-BC - 06/08/2017 9:39 AM CDT Ambulatory Discharge Medication List [address] [facility] [address] [place], [place] [id number] Visit Information Name: PUNEET COOLEY [facility] Number: [id number] Current Date: 06/08/2017 09:39:23 Attending Provider: LEONORA VILLASEÑOR R.N., [facility] Primary Care Provider: CATRACHO NAZARIO PA-C PUNEET COOLEY has been given the following list of [...] the Following Medications: Medication list as of 06-08-17 09:39 Attention: If you have any medications at home that are not on this list, DO NOT take them until youcontact your provider for clarification. Give a copy of your medication list to your primary care provider. Update your medication list any time medications or doses are changed and carry your medication list at all times in case of emergency. Electronically Signed By: LEONORA VILLASEÑOR R.N., WHNP-BC Signed On:08-JUN-2017 09:39:20 Additional Information: Source: [facility] POWERCHART Document Id: [id number] Miscellaneous - Leonora Villaseñor R.N., WHNP-BC - 06/08/2017 9:39 AM CDT Ambulatory Patient Summary [facility] [address], [address] [place], [place] [id number] Visit Information Name: PUNEET COOLEY [facility] Number: [id number] Current Date: 06/08/2017 09:39:23 Physicians Attending Provider: LEONORA VILLASEÑOR R.N., WHNP-BC Primary Care Provider: CATRACHO NAZARIO PA-C PUNEET COOLEY has been given the following list of [...] the Following Medications: Medication list as of 06-08-17 09:39 Attention: If you have any medications at home that are not on this list, DO NOT take them until youcontact your provider for clarification. Give a copy of your medication list to your primary care provider. Update your medication list any time medications or doses are changed and carry your medication list at all times in case of emergency. Electronically Signed By: LEONORA VILLASEÑOR R.N. WHNP-BC Signed On:08-JUN-2017 09:39:20 Your Allergies & Intolerances Substance Reaction Symptoms [...] local Clinic if further appointment detail needed. What Is Group B Strep? Group B strep (streptococcus) is a common bacteria. It can grow in a womans vagina, rectum, or urinary tract. It is almost always harmless in adults. But in rare cases, a woman who has group B strep can infect her baby during the . Infection can cause serious illness in the . The good newsis that treating the mother during labor reduces the risk of the baby becoming infected. And if a is infected, the infection can be treated. Facts About Group B Strep Learning more about group B strep can help you understand how testing and treatment can help. Here are some basic facts about group B strep: ?? It is not a sexually transmitted disease. ?? It is not the same as strep throat. (This is caused by group A strep.) ?? It often has no symptoms and may cause no problems in adults. ?? Test results can be misleading. They may be positive one week and negative the next week. ?? Group B strep can be transmitted during vaginal delivery. It cannot be passed during (surgical) . ?? A mother with group B strep rarely infects her . (Infection occurs only about 1% to 2% of the time.) ?? When a mother is treated during labor and delivery, her baby almost never becomes infected. ?? Certain factors during increase the risk of a baby becoming infected. Possible Effects on Your Baby Group B strep can infect the blood. It can also cause inflammation of the babys lungs, brain, or spinal cord. Long-term effects can include blindness, deafness, intellectual disability, or cerebral palsy. And in rare cases, infection causes . Infection is most often detected soon after the baby is born. How Your Baby May Become Infected Group B strep often lives in the vagina or rectum. If the amniotic sac breaks early, bacteria from the vagina can travel to the uterus, reaching the baby. Or, as the baby passes through the canal, it can come in contact with the bacteria. In rare cases, group B strep can also be passed to the baby after delivery. The source of this type of infection is not well understood. What Increases the Risk? Certain risk factors increase the chance that a baby will be infected. They include: ?? Breaking or leaking of the amniotic sac earlier than 37 weeks gestation ?? Labor earlier than 37 weeks gestation ?? Breaking of the amniotic sac more than 18 hours before labor begins ?? Fever during labor ?? A urinary tract infection with group B strep at any point in the ?? A previous baby born with a group B strep infection ?? [id number] [place] [address]. All rights reserved. This information is not intended as a substitute for professional medical care. Always follow your healthcare professional's instructions. Consider Using Patient Online Services Patient Online [...] if you dont have one. Go to [email or web address] and click on Create Your Account. Then, follow the directions to complete the online form. Youll be asked for your [facility] number which you can find at the top of this document. Your Goals/Additional instructions: This document has images extracted. Please consider using M[employer] for all your patient education needs. Source: [facility] POWERCHART Document Id: [id number] Miscellaneous - Cleopatra Laguerre L.P.N. - 06/08/2017 9:05 AM CDT Adult Whittling Room Operator Intake/History Adult Whittling Room Operator Intake/History Entered On: 06/08/2017 9:10 CDT Performed On: 06/08/2017 9:05 CDT by CLEOPATRA LAGUERRE LPN Intake Chief Complaint : visit. Moderate pelvic pressure for month. Hurts to walk and sit. LMP Date : 10/03/2016 Heart Rhythm : Regular Systolic Blood Pressure : 126 mmHg Diastolic Blood Pressure : 80 mmHg NIBP Mean : 95 mmHg BP Location : Left upper extremity Blood Pressure Cuff Size : Large Height : 158 cm(Converted to: 5 ft 2 inch(es), 62 inch(es)) Actual Weight : 149.2 kg(Converted to: 328 lb 15 oz) Weight Source : Standing scale Dosing Weight Clinic : 149.2 kg Clinic BSA : 2.56 Body Mass Index : 59.77 kg/m2 CLEOPATRA LAGUERRE LPN - 06/08/2017 9:05 CDT General Info Information Given By : Patient Languages : Malay Is Patient Female and 13-50 no hysterectomy : Yes Status : Confirmed positive Are you ? : No CLEOPATRA LAGUERRE LPN - 06/08/2017 9:05 CDT Subjective Pain Symptoms : Yes CLEOPATRA LAGUERRE LPN - 06/08/2017 9:05 CDT Pain Scale Pain Scale Verbal 0-10 : Open CLEOPATRA LAGUERRE LPN - 06/08/2017 9:05 CDT Pain Pain Assessment Grid Pain 1 Location : Pelvic Intensity : 8 Quality : Aching, Pressure, Sharp CLEOPATRA LAGUERRE LPN - 06/08/2017 9:05 CDT Dependent Habits Exposure to Tobacco Smoke : Other: Trying to quit. Smoking Status : Light tobacco smoker Tobacco 2A : Yes Tobacco Use/Currently Using : Yes Tobacco Use/Last 30 Days : Yes Tobacco Use/Last 12 months : Yes Tobacco Last Use/Month : November Tobacco Last Use/Year : 2016 Type : Other: Smokes about 3 cigarettes per week. CLEOPATRA LAGUERRE LPN - 06/08/2017 9:05 CDT Caffeine Use Grid Caffeine Use : Current Type : Coffee, Soft drinks Frequency : Occasionally CLEOPATRA LAGUERRE LPN - 06/08/2017 9:05 CDT Recreational Drug Use Grid Drug Use : None CLEOPATRA LAGUERRE LPN - 06/08/2017 9:05 CDT [email or web address] Document Id: [id number] CDT!50 documented in this encounter Plan of Treatment Scheduled Procedures Name Priority Associated Diagnoses Date/Time COLONOSCOPY Diarrhea documented as of this encounter Visit Diagnoses Not on filedocumented in this encounter Additional Health Concerns Assessment Noted Time PHQ-9 Depression Total Score: 7 04/07/2017 9:39 AM CDT documented as of this encounter Care Teams Beef Ribber Relationship Specialty Start Date End Date Catracho Bundy P.A.-C. PCP - General 02/04/17 04/26/19 documented as of this encounter
--- OUTSIDE RECORDS SUMMARY | 2022-06-29 09:31 | XMS_ITS | Encounter Summary ---
:1985 Author Organization [facility] Address [address] [place] [address] Care Team Providers Name Role Phone Catracho Bundy P.A.-C. Primary Care Provider Encounter Details Date Type Department Care Team Description 06/15/2017 [facility] Melchor, Marueen TARIQ, C.N.P. [address] [place], [place] [phone] (Wo rk) Social History [...] Sign Reading Time Taken Comments Blood Pressure 133/72 06/15/2017 10:24 AM CDT Pulse 107 06/15/2017 10:24 AM CDT Temperature - - Respiratory Rate - - Oxygen Saturation - - Inhaled Oxygen Concentration - - Weight 148 kg (325 lb 13.4 oz) 06/15/2017 10:24 AM CDT Height 158 cm (5' 2.21) 06/15/2017 10:24 AM CDT Body Mass Index 59.2 06/15/2017 10:24 AM CDT documented in this encounter Medications at Time of Discharge Medication Sig Dispensed Refills Start Date End Date ACETAMINOPHEN/DEXTROMETHORP Take by mouth. 0 03/04/201707/29/2017 ASNDOVAL (ACETAMINOPHEN-DM ORAL) PNV NO.95/FERROUS FUM/FOLIC Take by mouth 0 11/0607/29/2017 AC ( MULTIVITAMINS daily. ORAL) documented as of this encounter Miscellaneous Notes Miscellaneous - Leonora Villaseñor R.N., DANIA - 06/15/2017 10:26 AM CDT Ambulatory Patient Summary [address] [id number] Visit Information Name: COOLEY PUNEET ALVARADO [facility] Number: [id number] Current Date: 06/15/2017 10:26:41 Physicians Attending Provider: LEONORA VILLASEÑOR R.N. [facility] Primary Care Provider: CATRACHO NAZARIO PA-C PUNEET COOLEY CHRISTIANO has been given the following list of [...] the Following Medications: Medication list as of 06-15-17 10:26 Attention: If you have any medications at [...] Signed By: LEONORA VILLASEÑOR R.N., WHNP-BC Signed On:15-JUN-2017 10:26:39 Your Allergies & Intolerances Substance Reaction Symptoms [...] if you dont have one. Go to [email or web address] and click on Create Your Account. Then, follow the directions to complete the online form. Youll be asked for your [facility] number which you can find at the top of this document. Your Goals/Additional instructions: Source: [facility] POWERCHART Document Id: [id number] Miscellaneous - Leonora Villaseñor R.N., WHNP-BC - 06/15/2017 10:26 AM CDT Ambulatory Discharge Medication List [address] [id number] Visit Information Name: PUNEET COOLEY [facility] Number: [id number] Current Date: 06/15/2017 10:26:41 Attending Provider: LEONORA VILLASEÑOR R.N., WHNP-BC Primary [...] the Following Medications: Medication list as of 06-15-17 10:26 Attention: If you have any medications at [...] emergency. Electronically Signed By: LEONORA VILLASEÑOR R.N. [facility] Signed On:15-JUN-2017 10:26:39 Additional Information: Source: [facility] POWERCHART Document Id: [id number] Miscellaneous - Roosevelt Rodriges, L.P.N. - 06/15/2017 10:24 AM CDT Adult Clinical Veterinarian Intake/History Adult Clinical Veterinarian Intake/History Entered On: 06/15/2017 10:27 CDT Performed On: 06/15/2017 10:24 CDT by ROOSEVELT RODRIGES TINNING MACHINE SET UP OPERATOR Intake Chief Complaint : OB check Temperature Core : 36.5 DegC(Converted to: 97.7 DegF) Peripheral Pulse Rate : 107 /min (HI) Heart Rhythm : Regular Systolic Blood Pressure : 133 mmHg Diastolic Blood Pressure : 72 mmHg NIBP Mean : 92 mmHg BP Location : Left upper extremity Blood Pressure Cuff Size : Large Height : 158 cm(Converted to: 5 ft 2 inch(es), 62 inch(es)) Actual Weight : 147.8 kg(Converted to: 325 lb 13 oz) Weight Source : Standing scale Dosing Weight Clinic : 147.8 kg Clinic BSA : 2.55 Body Mass Index : 59.21 kg/m2 DANIROOSEVELT MENDOZA Apollo REID - 06/15/2017 10:24 CDT General Info Information Given By : Patient Languages : Yi Is Patient Female and 13-50 no hysterectomy : No ROOSEVELT RODRIGES Apollo REID - 06/15/2017 10:24 CDT Subjective Pain Symptoms : No DANIROOSEVELT Apollo REID - 06/15/2017 10:24 CDT Dependent Habits Exposure to Tobacco Smoke : Other: Trying to quit. Smoking Status : Former smoker Tobacco 2A : Yes Tobacco Use/Currently Using : No Tobacco Use/Last 30 Days : No Tobacco Use/Last 12 months : No Tobacco Last Use/Month : November Tobacco Last Use/Year : 2016 DANI, ROOSEVELT Apollo REID - 06/15/2017 10:24 CDT Caffeine Use Grid Caffeine Use : Current Type : Coffee, Soft drinks Frequency : Occasionally DANI ROOSEVELT Apollo REID - 06/15/2017 10:24 CDT Recreational Drug Use Grid Drug Use : None CARRILLOI Apollo REID 06/15/2017 10:24 CDT Source: [employer] Document Id: [id number] CDT!40 documented in this encounter Plan of Treatment Scheduled Procedures Name Priority Associated Diagnoses Date/Time COLONOSCOPY Diarrhea documented as of this encounter Visit Diagnoses Not on filedocumented in this encounter Additional Health Concerns Assessment Noted Time PHQ-9 Depression Total Score: 7 04/07/2017 9:39 AM CDT documented as of this encounter Care Teams Portuguese Tutor Relationship Specialty Start Date End Date Catracho Bundy P.A.-C. PCP - General 02/04/17 04/26/19 documented as of this encounter
--- OUTSIDE RECORDS SUMMARY | 2022-06-29 09:31 | XMS_ITS | Encounter Summary ---
:[address] [facility] Address [address] [place] [address] Care Team Providers Name Role Phone Catracho Bundy P.A.-C. Primary Care Provider Encounter Details Date Type Department Care Team Description 03/11/2017 Hospital Encounter HX [facility] Leonora Melchor, Maureen TARIQ, C.N.P. [address] [place], [place] [phone] (Wo rk) Social History [...] or relatives? How often do you attend adventist or taoist More than 4 time s per year 07/09/2020 services? Do you belong to any clubs or organizations No 04/19/2019 such as adventist groups, unions, fraternal or athletic groups, or [...] Sign Reading Time Taken Comments Blood Pressure 108/68 03/11/2017 2:39 PM CDT Pulse - - Temperature - - Respiratory Rate - - Oxygen Saturation - - Inhaled Oxygen Concentration - - Weight 145 kg (320 lb 8.8 oz) 03/11/2017 2:39 PM CDT Height 158 cm (5' 2.21) 03/11/2017 2:39 PM CDT Body Mass Index 58.24 03/11/2017 2:39 PM CDT documented in this encounter Medications at Time of Discharge Medication Sig Dispensed Refills Start Date End Date ACETAMINOPHEN/DEXTROMETHORP Take by mouth. 0 03/0 04/201707/29/2017 SANDOVAL (ACETAMINOPHEN-DM ORAL) PNV NO.95/FERROUS FUM/FOLIC Take by mouth 0 11/0607/29/2017 AC ( MULTIVITAMINS daily. ORAL) documented as of this encounter Miscellaneous Notes Miscellaneous - Leonora Villaseñor R.N., [facility] - 03/11/2017 3:28 PM CDT Ambulatory Discharge Medication List [facility] [address], [address] [place], [place] [id number] Visit Information Name: PUNEET COOLEY [facility] Number: [id number] Current Date: 03/11/2017 15:28:15 Attending Provider: LEONORA VILLASEÑOR R.N., [facility] Primary Care Provider: CATRACHO NAZARIO PA-C COOLEY PUNEET ALVARADO has been given the following list of [...] the Following Medications: Medication list as of 03-11-17 15:28 Attention: If you have any medications at [...] Signed By: LEONORA VILLASEÑOR R.N., WHNP-BC Signed On:11-MAR-2017 15:28:14 Additional Information: Source: [facility] POWERCHART Document Id: [id number] Miscellaneous - Leonora Villaseñor R.N., WHNP-BC - 03/11/2017 3:28 PM CDT Ambulatory Patient Summary [facility] [address], [address] [place], [place] [id number] Visit Information Name: PUNEET COOLEY [facility] Number: [id number] Current Date: 03/11/2017 15:28:15 Physicians Attending Provider: LEONORA VILLASEÑOR R.N., WHNP-BC [...] the Following Medications: Medication list as of 03-11-17 15:28 Attention: If you have any medications at [...] Signed By: LEONORA VILLASEÑOR R.N., WHNP-BC Signed On:11-MAR-2017 15:28:14 Your Allergies & Intolerances Substance Reaction Symptoms Category Comments penicillins Drug Your Problem List Problem Status Onset Comments Headache Migraine Active 01/21/2012 Headache Active 10/24/2007 11/18/13 Headache Dysthymic Disorder Active 08/01/2010 11/18/13 Dysthymic disorder Abuse Tobacco Smoking NOS Active Body Mass Index (BMI) 50.0-59.9 Adult Active Active 10/03/2016 Your Upcoming Appointments Date Time Location Provider 04/07/2017 09:00 [facility] RESERVOIR ENGINEERING ADVISOR Leonora Villaseñor NP Attention: Contact your local Clinic if further [...] if you dont have one. Go to [email or web address] and click on Create Your Account. Then, follow the directions to complete the online form. Youll be asked for your [facility] number which you can find at the top of this document. Your Goals/Additional instructions: Source: [facility] POWERCHART Document Id: [id number] Miscellaneous - Dawna Madera L.P.NBrittaney - 03/11/2017 2:39 PM CDT Adult Database Management Specialist Intake/History Adult Database Management Specialist Intake/History Entered On: 03/11/2017 14:43 CDT Performed On: 03/11/2017 14:39 CDT by DAWNA MADERA L.P.N. Intake Chief Complaint : OB check LMP Date : 10/03/2016 Systolic Blood Pressure : 108 mmHg Diastolic Blood Pressure : 68 mmHg NIBP Mean : 81 mmHg BP Location : Left upper extremity Blood Pressure Cuff Size : Regular Height : 158 cm(Converted to: 5 ft 2 inch(es), 62 inch(es)) Actual Weight : 145.4 kg(Converted to: 320 lb 9 oz) Dosing Weight Clinic : 145.4 kg Clinic BSA : 2.53 Body Mass Index : 58.24 kg/m2 DAWNA MADERA L.P.N. - 03/11/2017 14:39 CDT General Info Information Given By : Patient Preferred Communication Mode : Verbal Languages : Luxembourgish Is Patient Female and 13-50 no hysterectomy : Yes Status : Confirmed positive Are you ? : No DAWNA MADERA L.P.N. - 03/11/2017 14:39 CDT Subjective Pain Symptoms : No DAWNA MADERA L.P.N. - 03/11/2017 14:39 CDT Dependent Habits Exposure to Tobacco Smoke : Other: Trying to quit. Smoking Status : Former smoker Tobacco 2A : Yes Tobacco Use/Currently Using : No Tobacco Use/Last 30 Days : No Tobacco Use/Last 12 months : No Tobacco Last Use/Month : November Tobacco Last Use/Year : 2016 DAWNA MADERA L.P.N. - 03/11/2017 14:39 CDT Caffeine Use Grid Caffeine Use : Current Type : Coffee, Soft drinks Frequency : Occasionally DAWNA MADERA L.P.N. - 03/11/2017 14:39 CDT Recreational Drug Use Grid Drug Use : None DAWNA MADERA L.P.N. - 03/11/2017 14:39 CDT Source: [facility] FIRE1 Document Id: [id number] CDT!40 documented in this encounter Plan of Treatment Scheduled Procedures Name Priority Associated Diagnoses Date/Time COLONOSCOPY Diarrhea documented as of this encounter Procedures Procedure Name Priority Date/Time Associated Comments Diagnosis SYPHILIS TOTAL AB W/ Routine 03/11/2017 2:24 PM R esults for this REFLEX S CDT procedure are i n the results section. GLUCOSE, GESTATIONAL Routine 03/11/2017 2:24 PM R esults for this 1HR, S CDT procedure are i n the results section. CBC WITHOUT Routine 03/11/2017 2:24 PM Results f or this DIFFERENTIAL, B CDT procedure ar e in the results section. documented in this encounter Results Syphilis IgG Antibody with Reflex (03/11/2017 2:24 PM CDT) P athologist Signature Syphilis IgG Negative Negative POWERCHART Ab, S Comment: No serologic evidence of exposure to syp hilis. Test Performed by: [address], [place] [address] Specimen (Source) Anatomical Collection Method Collection Time Re ceived Time Location / / Volume Laterality Blood 03/11/2017 2:24 PM CDT Marlyn Carter APRN.N.P. LAB BLOOD ADD-ON Performing Organization Address [facility] Phon e Number POWERCHART POWERCHART NA (ABNORMAL) CBC without Differential (03/11/2017 2:24 PM CDT) Analysis Performed At Patho logist Time Signature Leukocytes 9.6 3.5 - 10.5 POWERCHART X109L Erythrocytes 3.95 3.90 - POWERCHART 5.03 [id number] Hemoglobin 11.6 (L) 12.0 - POWERCHART 15.5 GDL Hematocrit 34.7 (L) 34.9 - POWERCHART 44.5 MCV 87.8 81.6 - POWERCHART 98.3 FL HX RDW 13.7 11.9 - POWERCHART 15.5 Platelet Count 213 150 - 450 POWERCHART X109L Specimen (Source) Anatomical Collection Method Collection Time Re ceived Time Location / / Volume Laterality Blood 03/11/2017 2:24 PM CDT Marisol Irving APRN, C.N.P. LAB BLOOD ADD-ON Performing Organization Address City/[facility] Code Phon e Number POWERCHART POWERCHART NA Glucose, Gestational 1H (03/11/2017 2:24 PM CDT) P athologist Signature HXGlucose 1 Hr 129 70 - 139 POWERCHART OB MGDL Comment: A glucose threshold value >= 14 0mg/dL identifies approximately 80% of women with GDM, and the yield is further incre ased to 90% by using a cutoff of >=130mg/dL Specimen (Source) Anatomical Collection Method Collection Time Re ceived Time Location / / Volume Laterality Blood 03/11/2017 2:24 PM CDT Marisol Irving APRN, C.N.P. LAB BLOOD ADD-ON Performing Organization Address City/[facility] Phon e Number POWERCHART POWERCHART NA documented in this encounter Visit Diagnoses Not on filedocumented in this encounter Additional Health Concerns Assessment Noted Time PHQ-9 Depression Total Score: 11 12/13/2014 9:50 AM CD T documented as of this encounter Care Teams Fuller Brush Worker Relationship Specialty Start Date End Date Bundy, Catracho E, P.A.-C. PCP - General 02/04/17 04/26/19 documented as of this encounter
--- OUTSIDE RECORDS SUMMARY | 2022-06-29 09:31 | XMS_ITS | Encounter Summary ---
:1985 Author Organization [facility] Address [address] [place] [address] Care Team Providers Name Role Phone Blaire Bundy P.A.-C. Primary Care Provider Encounter Details Date Type Department Care Team Description 05/11/2017 Telemedicine Department of Obstetrics and Gynecology Social History Tobacco Use Types Packs/Day Years [...] often do you attend jehovah's witness or orthodoxy More than 4 time s [...] Procedure Name Priority Date/Time Associated Comments Diagnosis OBSTETRICS AND Routine 05/11/2017 9:10 AM Results for this GYNECOLOGY IMAGE CDT procedure a re in EXAM the results section. documented in this encounter Results OBSTETRICS AND GYNECOLOGY IMAGE EXAM (05/11/2017 9:10 AM CDT) Specimen (Source) Anatomical Collection Method Collection Time Re ceived Time Location / / Volume Laterality 05/11/2017 9:06 AM CDT Narrative [facility] - 05/11/2017 11:04 AM CDT This order has been created and auto-finalized to support the import of images acquired without order. The clini huma documentation to support these images can be found on the encounter fidelina t produced images. Provider Not In System IMG NON RAD IMAGING PROCEDUR ES Performing Organization Address City/State/ZIP Code Phon e Number IIVT IIVT NA documented in this encounter Visit Diagnoses Not on filedocumented in this encounter Additional Health Concerns Assessment Noted Time PHQ-9 Depression Total Score: 7 04/07/2017 9:39 AM CDT documented as of this encounter Care Teams Manager State Relationship Specialty Start Date End Date Blaire Bundy P.A.-C. PCP - General 02/04/17 04/26/19 documented as of this encounter
--- OUTSIDE RECORDS SUMMARY | 2022-06-29 09:31 | XMS_ITS | Encounter Summary ---
:1985 Author Organization [facility] Address [address] [place] [address] Care Team Providers Name Role Phone Catracho Bundy P.A.-C. Primary Care Provider Encounter Details Date Type Department Care Team Description 02/22/2017 Hospital Encounter HX [facility] Ashwin Bundy PBrittaneyABrittaney-CBrittaney [address] [place] [address] (Wo rk) Social History Tobacco Use Types Packs/Day Years Used Date Smoking Tobacco: Former Alcohol Habits Answer Date Recorded How often [...] How often do you attend cheondoism or restoration More than 4 time s [...] Sign Reading Time Taken Comments Blood Pressure 127/63 02/22/2017 10:19 AM CDT Pulse 87 02/22/2017 10:19 AM CDT Temperature - - Respiratory Rate 16 02/22/2017 10:19 AM CDT Oxygen Saturation - - Inhaled Oxygen Concentration - - Weight 146 kg (322 lb 12.1 oz) 02/22/2017 10:19 AM CDT Height 158 cm (5' 2.21) 02/22/2017 10:19 AM CDT Body Mass Index 58.64 02/22/2017 10:19 AM CDT documented in this encounter Medications at Time of Discharge Medication Sig Dispensed Refills Start Date End Date ACETAMINOPHEN/DEXTROMETHORP Take by mouth. 0 04/201707/29/2017 SANDOVAL (ACETAMINOPHEN-DM ORAL) PNV NO.95/FERROUS FUM/FOLIC Take by mouth 0 11/0607/29/2017 AC ( MULTIVITAMINS daily. ORAL) documented as of this encounter Progress Notes Catracho Nazario - 02/22/2017 11:20 AM CDT Clinic Full Note CHIEF COMPLAINT/REASON FOR VISIT LEFT Eye, yesterday morning, burning, red, itchy, watery, pain shoting up to eyebrow and head, thisam couldnt open it not crusty just stuck closed HISTORY OF PRESENT ILLNESS Patient is a 31 year old female who presents today for evaluation of left eye pain. She notes the pain initially started yesterday after she got out of the shower. At that time the eye was minimally bothersome. She awoke this morning with crusting of the left eyelid. She has developed itching and burning pain in the eye since that time. She has some pain that shoots from the center of the left eye up into the head, which occurs from time to time. She is having significant watery discharge and photophobia. The patient denies any known foreign bodies. She denies any new makeups, lotions, body washesor detergents. Of note the patient does wear contacts. MEDICATIONS Multivitamins, PO, Daily Tylenol, PO ALLERGIES penicillins PAST MEDICAL HISTORY Chronic Abuse Tobacco Smoking NOS Body Mass Index (BMI) 50.0-59.9 Adult Dysthymic Disorder Headache Headache Migraine Historical PROCEDURES/SURGICAL HISTORY Pap smear (01/25/2013), Pap smear (01/25/2013). SOCIAL HISTORY Date Time: 02/22/2017 10:36 Tobacco: Smoking Status: Light tobacco smoker Exposure: Other: Trying to quit. Alcohol: Use: No Results Found Recreational Drugs: [...] Anesthesia; Bleeding disorder; Hearing loss SYSTEMS REVIEW As noted above VITAL SIGNS T: 36.5 ??C (Core) HR: 87 RR: 16 BP: 127 / 63 SpO2: 98% HT: 158 cm WT: 146.4 kg BMI: 58.64 PHYSICAL EXAMINATION GENERAL: Patient is in no distress. HEENT: Normocephalic. PERRL, Left conjunctiva is injected with watery discharge. Fluorescein staining shows pinpoint corneal abrasion at 12'oclock. No foreign bodies found with flipping eyelids NECK: Supple NEURO: Alert and nonfocal, moving all 4 extremities PSYCH: Appropriate affect IMPRESSION/REPORT/PLAN Abrasion Cornea Initial L Due to the corneal abrasion and patient's significant pain as well as Dr. Biswas's availability patient was referred to Dr. Biswas for further evaluation and treatment. She was given a note for work and sent to see Dr. Biswas today. Electronically Signed By: CATRACHO NAZARIO PA-C On: 02/24/2017 07:37 AM Source: [facility] POWERCHART Document Id: [id number] Leonora Barrios C.M.A. - 02/22/2017 10:36 AM CDT Eye Services Clinic Exam Eye Services Clinic Exam Entered On: 02/22/2017 10:37 CDT Performed On: 02/22/2017 10:36 CDT by LEONORA BARRIOS [facility] Chief Complaint and History Chief Complaint : Eye pain Pain Symptoms : Yes Smoking Status : Light tobacco smoker LEONORA BARRIOS [facility] - 02/22/2017 10:36 CDT Vision Testing Right Eye Vision Testing : With glasses - primary, 20/25 Left Eye Vision Testing : With glasses - primary, 20/30 Both Eyes Vision Testing : With glasses - primary, 20/25 LEONORA BARRIOS GATE MORTISER OPERATOR - 02/22/2017 10:36 CDT Pain Scale Pain Scale Verbal 0-10 : Open LEONORA BARRIOS CMA - 02/22/2017 10:36 CDT Pain Pain Assessment Grid Pain 1 Location : Eye Laterality : Left Intensity : 6 LEONORA BARRIOS CMA - 02/22/2017 10:36 CDT Source: [facility] nVoq Document Id: [id number] CDT!17 documented in this encounter Miscellaneous Notes Miscellaneous - Catracho Nazario - 02/22/2017 10:44 AM CDT Work Excuse February 22, 2017 PUNEET FORREST [address] [facility] [id number] Dear PUNEET CLAYTON, You were examined in my office on: 02/22/17 Reason for work excuse: Medical Illness ( X ) Yes ( _ ) No Injury ( _ ) Yes ( _ ) No Is excused from all work: ( X ) Yes ( _ ) No Please excuse Puneet from work today. Sincerely, CATRACHO NAZARIO [id number] [address] Electronic Signature Electronically Signed By: CATRACHO NAZARIO PA-C On: February 22, 2017 This document has images extracted. Source: [facility] nVoq Document Id: [id number] Miscellaneous - Leonora Barrios C.M.ABrittaney - 02/22/2017 10:19 AM CDT Adult Yard Manager Intake/History Adult Yard Manager Intake/History Entered On: 02/22/2017 10:23 CDT Performed On: 02/22/2017 10:19 CDT by LEONORA BARRIOS [facility] Intake Chief Complaint : LEFT Eye, yesterday morning, burning, red, itchy, watery, pain shoting up to eyebrow and head, this am couldnt open it not crusty just stuck closed Onset of Symptoms : Yesterday AM Temperature Core : 36.5 DegC(Converted to: 97.7 DegF) Peripheral Pulse Rate : 87 /min Respiratory Rate : 16 /min Systolic Blood Pressure : 127 mmHg Diastolic Blood Pressure : 63 mmHg NIBP Mean : 84 mmHg BP Location : Left upper extremity Blood Pressure Cuff Size : Large SpO2 : 98 % Oxygen Therapy : Room air Height : 158 cm(Converted to: 5 ft 2 inch(es), 62 inch(es)) Actual Weight : 146.4 kg(Converted to: 322 lb 12 oz) Weight Source : Standing scale Dosing Weight Clinic : 146.4 kg Clinic BSA : 2.53 Body Mass Index : 58.64 kg/m2 LEONORA BARRIOS CMA - 02/22/2017 10:19 CDT General Info Information Given By : Patient Preferred Communication Mode : Verbal Languages : Slovenian Is Patient Female and 13-50 no hysterectomy : Yes Status : Confirmed positive Are you ? : No LEONORA BARRIOS CMA - 02/22/2017 10:19 CDT Subjective Pain Symptoms : Yes LEONORA BARRIOS CMA - 02/22/2017 10:19 CDT Pain Scale Pain Scale Verbal 0-10 : Open LEONORA BARRIOS CMA - 02/22/2017 10:19 CDT Pain Pain Assessment Grid Pain 1 Location : Eye Laterality : Left Intensity : 6 Time Pattern : Constant Quality : Aching, Burning, Other: Itchy LEONORA BARRIOS CMA - 02/22/2017 10:19 CDT Dependent Habits Exposure to Tobacco Smoke : Other: Trying to quit. Smoking Status : Light tobacco smoker Tobacco 2A : Yes Tobacco Use/Currently Using : Yes Tobacco Use/Last 30 Days : Yes Tobacco Use/Last 12 months : Yes Tobacco Last Use/Month : November Tobacco Last Use/Year : 2016 Type : Cigarettes: Less than 20 per day, Other: Occasional Tobacco Use/Advised to Quit : Yes LEONORA BARRIOS [facility] - 02/22/2017 10:19 CDT Caffeine Use Grid Caffeine Use : Current Type : Coffee, Soft drinks Frequency : Occasionally LEONORA BARRIOS [facility] - 02/22/2017 10:19 CDT Recreational Drug Use Grid Drug Use : None LEONORA BARRIOS [facility] - 02/22/2017 10:19 CDT Source: [facility] nVoq Document Id: [id number] CDT!58 documented in this encounter Plan of Treatment Scheduled Procedures Name Priority Associated Diagnoses Date/Time COLONOSCOPY Diarrhea documented as of this encounter Visit Diagnoses Not on filedocumented in this encounter Additional Health Concerns Assessment Noted Time PHQ-9 Depression Total Score: 11 12/13/2014 9:50 AM CD T documented as of this encounter Care Teams Invoice Classification Clerk Relationship Specialty Start Date End Date Catracho Bundy P.A.-C. PCP - General 02/04/17 04/26/19 documented as of this encounter
--- OUTSIDE RECORDS SUMMARY | 2022-06-29 09:31 | XMS_ITS | Encounter Summary ---
:1985 Author Organization [facility] Address [address] [place] [address] Care Team Providers Name Role Phone Blaire Bundy P.A.-C. Primary Care Provider [phone] Encounter Details Date Type Department Care Team Description 02/11/2017 Hospital Encounter HX [facility] Marisol Irving APRN, C.N.P. [address] [place] [address] (Wo rk) Social History Tobacco Use Types [...] How often do you attend yarsanism or caodaism More than 4 time s [...] Date ACETAMINOPHEN/DEXTROMETHORP Take by mouth. 0 03/04/201707/29/2017 SANDOVAL (ACETAMINOPHEN-DM ORAL) PNV NO.95/FERROUS FUM/FOLIC Take by mouth 0 11/0607/29/2017 AC ( MULTIVITAMINS daily. ORAL) documented as of this encounter Miscellaneous Notes Miscellaneous - Conversion, Historical Provider Ser - 02/11/2017 11:59 PM CDT Coding Summary-Paper Based CODING DATE: 02/16/2017 FINAL [facility] STATUS: * Discharged to Home or Self Care PAYOR: MMSI ADMIT DX: REASON FOR VISIT DX: FINAL DX: PRINCIPAL: Z34.92 Encounter for supervision of normal , unspecified, second trimester SECONDARY: Z36 Encounter for screening of mother Z3A.20 20 weeks gestation of PROCEDURES DOCTOR NAME DATE NOTE: The code number assigned matches the documented diagnosis and / or procedure in the patient's chart. However, the narrative phrase printed from the coding software may appear abbreviated, or result in slightly different terminology. Coded By: ANGELA ROLDAN Date Saved: 02/16/2017 11:30 am Source: [facility] POWERCHART Document Id: [id number] Miscellaneous - Marisol Irving CBrittaneyN.P., R.N. - 02/11/2017 4:33 PM CDT Addendum by SOCORRO MARK on February 12, 2017 11:37:11 CDT From: SOCORRO MARK ( Obstetrics/Gynecology Light Equipment Operator) To: PUNEET CLAYTON Sent: 02/12/2017 11:37:11 CDT Subject: FW: Addendum by SOCORRO MARK on February 12, 2017 11:33:42 CDT Dear Yassine Medina appointments 03/11/17 1:15 labs for glucose prep (check in at Family Practice registration) 1:30ultrasound in Radiology with a full bladder, after ultrasound back to lab for blood draw, 2:45 arrival time with Leonora Reaves (check back in at Family Practice). If this date and time doesn't work for you please let me know. Thank you for using patient online services. Have a wonderful rest of the day, Socorro Patient Access. From: MARISOL IRVING CNP, RN To: Obstetrics/Gynecology Light Equipment Operator; PUNEET CLAYTON Sent: 02/11/2017 16:33:06 CDT Puneet, The ultrasound from today was normal except, like you expected, they could not get good pictures of the babys heart and certain structures within the baby's brain and fingers and toes. I have placed a follow up ultrasound for you. I will have Socorro give you a call to get it scheduled with your next appointment. Marisol Source: [facility] POWERCHART Document Id: [id number] Electronically signed by Roland, [facility] Manager Basketball [id number] at 02/24/2017 11:29 AM CDT documented in this encounter Plan of Treatment Scheduled Procedures Name Priority Associated Diagnoses Date/Time COLONOSCOPY Diarrhea documented as of this encounter Visit Diagnoses Not on filedocumented in this encounter Additional Health Concerns Assessment Noted Time PHQ-9 Depression Total Score: 11 12/13/2014 9:50 AM CD T documented as of this encounter Care Teams Shell Coremaker Relationship Specialty Start Date End Date Blaire Bundy P.A.-C. PCP - General 02/04/17 04/26/19 documented as of this encounter
--- OUTSIDE RECORDS SUMMARY | 2022-06-29 09:31 | XMS_ITS | Encounter Summary ---
:1985 Author Organization [facility] Address [address] [place] [address] Care Team Providers Name Role Phone Blaire Bundy P.A.-C. Primary Care Provider Reason for Visit Reason Comments Sore Throat sore throat since Wednesday, no fever, no bodyaches, headaches, dry cough Appointment Request (Routine) - Incomplete Specialty Diagnoses / Procedures Referred By Contact Refer red To Contact Referral ID Status Reason Start Date Expiration Date Visits V isits Requested Authorized [id number] Incomplete 08/02/2017 01/29/2018 1 1 Encounter Details Date Type Department Care Team Description 08/03/2017 Office Visit Department of [facility] Erin Bundy P.A.-C. [address] [place] [address] Sore Throat (Primary Dx); Medicine, Deb Brown, HATCH TENDER, C.N.P. [address] [place] [address] [facility], in [address] [address] Social History Tobacco Use Types Packs/Day [...] Sign Reading Time Taken Comments Blood Pressure 139/65 08/03/2017 8:38 AM HUMAN RESOURCES FILE CLERK Pulse 79 08/03/2017 8:38 AM HUMAN RESOURCES FILE CLERK Temperature 36.3 ??C (97.3 ??F) 08/03/2017 8:38 AM HUMAN RESOURCES FILE CLERK Respiratory Rate 16 08/03/2017 8:38 AM HUMAN RESOURCES FILE CLERK Oxygen Saturation 98% 08/03/2017 8:38 AM HUMAN RESOURCES FILE CLERK Inhaled Oxygen Concentration - - Weight 147 kg (323 lb 10.2 oz) 08/03/2017 8:38 AM HUMAN RESOURCES FILE CLERK Height 158 cm (5' 2.21) 08/03/2017 8:38 AM HUMAN RESOURCES FILE CLERK Body Mass Index 58.8 08/03/2017 8:38 AM HUMAN RESOURCES FILE CLERK documented in this encounter Progress Notes Deb Enamorado C.N.P., R.N. - 08/03/2017 9:00 AM CST SUBJECTIVE CHIEF COMPLAINT / REASON FOR VISIT Sore throat. Cough. HISTORY OF PRESENT ILLNESS Carol is a very pleasant 31-year-old female who comes into the clinic today with concerns related to a sore throat and nonproductive cough for at least 4 days. She denies any known fevers. She reportsa history of ???strep throat?? . She reports her cough is intermittently productive with ???greenish?? sputum. She denies any concerns with appetite or sleep. She reports a ???lack of voice?? relatedto her current illness. She denies any headaches or dizziness. She denies any abdominal pain. She denies any heart palpitations, chest pain or shortness of breath. She is here today for further evaluation. She has no other concerns today. Brief Review of Systems: A brief review of systems was negative except for that mentioned in the history of present of illness. No current outpatient prescriptions on file. Allergies Allergen Reactions ??? Penicillins Other (see comments) Cerner listed no reaction OBJECTIVE PHYSICAL EXAM BP 139/65 (BP Location: Left arm, Patient Position: Sitting, Cuff Size: Large) Pulse 79 Temp 36.3 ??C (Temporal) Resp 16 Ht 158 cm Wt (!) 146.8 kg SpO2 98% BMI 58.80 kg/m?? Body mass index is 58.8 kg/m??. CONSTITUTIONAL: Alert and oriented. No acute distress. HEAD/EAR/NOSE/MOUTH/THROAT: Normocephalic/atraumatic. Canals patent, TMs normal. Oropharynx without lesion of mucosa. Pharyngeal rises symmetrically without exudate and mild erythema. Tonsils +3. CARDIOVASCULAR: Regular rate and rhythm. No murmurs, gallops or rubs noted. RESPIRATORY: Clear to auscultation bilaterally. No expiratory wheeze. No accessory muscles of respiration noted. MUSCULOSKELETAL: No neurovascular compromise. No cyanosis, clubbing or edema. NEUROLOGICAL: Cranial nerves II-VII grossly intact and symmetric. She ambulates with a steady gait. PSYCHIATRIC: Cooperative. Affect appropriate. ASSESSMENT / PLAN #1 Sore Throat A rapid strep screen is pending at time of dictation. We will contact her with results once completed. If her rapid strep screen is positive, an oral antibiotic will be prescribed. #2 Cough At this time, I believe she has a viral illness. She was instructed to use [id number] pain analgesics and increased fluids for symptom management. We discussed the use of honey as needed for symptom management. She was instructed to contact the clinic with worsening or no improvement in symptoms. All questions were answered. She left in no acute distress. Deb Enamorado C.N.P., R.N. N RESOURCES FILE CLERK documented in this encounter Plan of Treatment Scheduled Procedures Name Priority Associated Diagnoses Date/Time COLONOSCOPY Diarrhea documented as of this encounter Procedures Procedure Name Priority Date/Time Associated Diagnosis Comme nts BACTERIAL CULTURE, Routine 08/03/2017 4:12 PM Res ults for this THROAT HUMAN RESOURCES FILE CLERK procedure are i n the results section. RAPID STREP A Routine 08/03/2017 9:27 AM Sore Throat Results for this SCREEN HUMAN RESOURCES FILE CLERK procedure are i n the results section. documented in this encounter Results Bacterial Culture, Throat (08/03/2017 4:12 PM HUMAN RESOURCES FILE CLERK) [facility] Method Time Signature Throat No growth of 08/05/[address] [facility] Culture Streptococcus 6:38 AM HUMAN RESOURCES FILE CLERK [facility] Specimen Anatomical Collection Method Collection Time Receive d Time (Source) Location / / Volume Laterality Throat Swab 08/03/2017 4:12 PM 7 4:12 HUMAN RESOURCES FILE CLERK PM HUMAN RESOURCES FILE CLERK Deb Enamorado APRN, C.N.P. LAB MICROBIOLOGY - GENE RAL ORDERABLES Performing Organization Address City/[facility]/ZIP Code Phon e Number [facility] [address] [place] [address], [facility] [address] [facility] Rapid Strep A Screen Throat (08/03/2017 9:27 AM HUMAN RESOURCES FILE CLERK) athologist Signature Rapid Strep A Negative Negative 08/03/[address] [facility] Screen 9:52 AM [facility] LAB Specimen Anatomical Collection Method Collection Time Receive d Time (Source) Location / / Volume Laterality Varies (Throat) 08/03/2017 9:27 AM 2016 9:36 HUMAN RESOURCES FILE CLERK AM HUMAN RESOURCES FILE CLERK Deb Enamorado APRN, C.N.P. LAB MICROBIOLOGY - GENE RAL ORDERABLES Performing Organization Address City/[facility]/ZIP Code Phon e Number [facility]- [address] [place] [address] [facility] documented in this encounter Visit Diagnoses Diagnosis Sore Throat - Primary Cough Unspecified Type documented in this encounter Additional Health Concerns Assessment Noted Time PHQ-9 Depression Total Score: 7 04/07/2017 9:39 AM CDT documented as of this encounter Care Teams Substitute Bus Driver Relationship Specialty Start Date End Date Blaire Bundy P.A.-C. PCP - General 02/04/17 04/26/19 documented as of this encounter
--- OUTSIDE RECORDS SUMMARY | 2022-06-29 09:31 | XMS_ITS | Encounter Summary ---
:1985 Author Organization [facility] Address [address] [place] [address] Care Team Providers Name Role Phone Blaire Bundy P.A.-C. Primary Care Provider [phone] Reason for Visit Reason Comments Care Encounter Details Date Type Department Care Team Description 07/29/2017 Office Visit Department of Leonora Reaves, Management C ontraception By Injection (Primary Dx); Obstetrics and SOFTWARE DESIGN ENGINEER, C.N.P. Exam (HCC) Gynecology in [address] [address] [place], [place] [phone] (Work) [phone] Social History Tobacco Use Types Packs/Day Years [...] How often do you attend presybeterian or sabianism More than 4 time s [...] Sign Reading Time Taken Comments Blood Pressure 132/82 07/29/2017 10:53 AM GENETICS NURSE Pulse - - Temperature - - Respiratory Rate - - Oxygen Saturation - - Inhaled Oxygen Concentration - - Weight 145 kg (319 lb 10.7 oz) 07/29/2017 10:53 AM GENETICS NURSE Height - - Body Mass Index 58.3 06/23/2017 4:33 PM CDT documented in this encounter Progress Notes Leonora Reaves R.N., WHNP-BC - 07/29/2017 11:00 AM CST SUBJECTIVE CHIEF COMPLAINT / REASON FOR VISIT Carol Cooley, , is status post vaginal at [facility] in [place]. Antepartum course was complicated by: Obesity. course has been uncomplicated. Patient is bottle-feeding formula. Baby's name is: Max Patient's bleeding has stopped. Patient's bladder/bowel function is as expected. HISTORY OF PRESENT CONDITION OB History Para Term AB Living 2 2 1 2 SAB TAB Ectopic Molar Multiple Live Births 2 # Outcome Date GA Lbr Miguel Angel/2nd Weight Sex Delivery Anes PTL Lv 2 Term 06/24/17 39w1d M Vag-Spont 1 Para 01/03/08 M Vag-Spont CJ The following portions of the patient's history were reviewed and updated as appropriate: allergies and current medications. REVIEW OF SYSTEMS A comprehensive review of systems was negative. OBJECTIVE VITAL SIGNS Vitals: 07/29/17 1053 BP: 132/82 Patient Position: Sitting Weight: (!) 145 kg MEDICATIONS I have discontinued Ms. Cooley's ACETAMINOPHEN/DEXTROMETHORPHAN (ACETAMINOPHEN- DM ORAL) and PNV NO.95/FERROUS FUM/FOLIC AC ( MULTIVITAMINS ORAL). We administered medroxyPROGESTERone. We will continue to administer medroxyPROGESTERone. PHYSICAL EXAM Heart: Regular rate and rhythm Lungs: CTAx4 Lymph nodes: normal Abdomen: no organomegaly, masses or hernia Genitalia: external vulva, Bartholin's, urethra, [place]'s glands and fourchette negative Perineum: intact; well healed Vagina: normal Cervix: normal Bimanual: exam revealed normal mobile uterus, negative adnexa Rectovaginal exam: confirms good sphincter tone Regional Maintenance Manager for pelvic exam or qualifying procedure: Lory Hardy L.P.N. MENTAL STATUS PHQ-9 Score: 0 DIAGNOSTICS Thin Prep: deferred Up to date ASSESSMENT / PLAN Problem List Items Addressed This Visit None Visit Diagnoses Management Contraception By Injection - Primary Relevant Orders Injection Visit - Depo-Provera #1 Normal exam #2 No evidence of Mood Disorder #3 Contraception: Depo-Provera prescription written with first dose given today PATIENT EDUCATION Ready to learn, barriers to learning: none; learning preferences include listening. Explained diagnosis and treatment plan; patient expressed understanding of the content. Leonora Reaves R.N., SIM- TICS NURSE documented in this encounter Plan of Treatment Scheduled Procedures Name Priority Associated Diagnoses Date/Time COLONOSCOPY Diarrhea documented as of this encounter Visit Diagnoses Diagnosis Management Contraception By Injection - Primary Exam (HCC) documented in this encounter Administered Medications Inactive Administered Medications - up to 3 most recent administrations Medication Order MAR Action Action Date Dose Rate Site medroxyPROGESTERone injection Given 07/29/2017 150 mg Right Vastus 150 mg 11:37 AM GENETICS NURSE Lateralis 150 mg, intramuscular, Every 12 weeks, First dose on Bryanna 07/29/17 at 1145, For 4 doses documented in this encounter Additional Health Concerns Assessment Noted Time PHQ-9 Depression Total Score: 7 04/07/2017 9:39 AM CDT documented as of this encounter Care Teams Digital Print Operator Relationship Specialty Start Date End Date Blaire Bundy P.A.-C. PCP - General 02/04/17 04/26/19 documented as of this encounter
--- OUTSIDE RECORDS SUMMARY | 2022-06-29 09:31 | XMS_ITS | Encounter Summary ---
:1985 Author Organization [facility] Address [address] [place] [address] Care Team Providers Name Role Phone Blaire Bundy P.A.-C. Primary Care Provider [phone] Encounter Details Date Type Department Care Team Description 06/23/2017 - Hospital Encounter HX RST UNIT 3-2 06/26/2017 OBSTETRICS Social History Tobacco Use Types Packs/Day Years [...] Sign Reading Time Taken Comments Blood Pressure 128/85 06/26/2017 7:45 AM CDT Pulse 80 06/26/2017 7:45 AM CDT Temperature - - Respiratory Rate 16 06/26/2017 7:45 AM CDT Oxygen Saturation - - Inhaled Oxygen - - Concentration Weight 147 kg (324 lb 8.3 06/23/2017 4:33 PM Vital s ign result oz) CDT from CDM. Height 157.7 cm (5' 2.09) 06/23/2017 4:33 PM Vital sign result CDT from CDM. Body Mass Index 59.19 06/23/2017 4:33 PM CDT documented in this encounter Medications at Time of Discharge Medication Sig Dispensed Refills Start Date End Date acetaminophen Take 1-2 tablets by 0 06/24/2017 (for_TYLENOL) 500 mg mouth every 6 (six) tablet hours as needed. ACETAMINOPHEN/DEXTROMETHOR Take by mouth. 0 10/2907/29/2017 MATAMOROS (ACETAMINOPHEN-DM ORAL) docusate sodium Take 1 capsule by 0 06/24/2017 (for_COLACE) 100 mg mouth 2 (two) times capsule a day as needed. ibuprofen Take 3 tablets by 0 06/24/2017 018 (for_ADVIL,MOTRIN) 200 mg mouth every 6 (six) tablet hours as needed. PNV NO.95/FERROUS Take by mouth 0 11/06/2016 12/0 02/2017 FUM/FOLIC AC ( daily. MULTIVITAMINS ORAL) sennosides (SENNA) 8.6 mg Take 2 tablets by 0 09/201611/07/2017 tablet mouth at bedtime as needed. documented as of this encounter Plan of Treatment Scheduled Procedures Name Priority Associated Diagnoses Date/Time COLONOSCOPY Diarrhea documented as of this encounter Procedures Procedure Name Priority Date/Time Associated Diagnosis Comme nts HX SYPHILIS Routine 06/23/2017 8:47 AM Results f or this ANTIBODY CASCADE, S CDT procedur e are in the results section. documented in this encounter Results HX Syphilis Antibody Coleman, S (06/23/2017 8:47 AM CDT) [facility] Method Time Signature HX Syphilis Negative Negative [facility] Igg Ab LABORATORIES - W/Reflex, S [facility] Comment: Peripheral IV ? No serologic evidence of exposure to syp hilis. ? Specimen Anatomical Collection Method Collection Time Receive d Time (Source) Location / / Volume Laterality 06/23/2017 8:47 AM 7 8:47 CDT AM CDT Narrative [facility] - 06/23/2017 12:57 PM CDT Peripheral IV Carol Hoskins M.D. LAB HISTORICAL ORDERS Performing Organization Address City/State/[facility] Phon e Number [facility] - [address] [place], [place] [address] [facility] documented in this encounter Visit Diagnoses Not on filedocumented in this encounter Additional Health Concerns Assessment Noted Time PHQ-9 Depression Total Score: 7 04/07/2017 9:39 AM CDT documented as of this encounter Care Teams Foam Charger Relationship Specialty Start Date End Date Blaire Bundy P.A.-C. PCP - General 02/04/17 04/26/19 documented as of this encounter
--- OUTSIDE RECORDS SUMMARY | 2022-06-29 09:31 | XMS_ITS | Encounter Summary ---
:1985 Author Organization [facility] Address [address] [place] [address] Care Team Providers Name Role Phone Blaire Bundy P.A.-C. Primary Care Provider Encounter Details Date Type Department Care Team Description 06/18/2017 Abstract Department of Family Medicine, Provider, Historical [facility], in [place], [place] [address] [place] [address] [facility] [phone] Social History Tobacco Use Types Packs/Day Years [...] How often do you attend jewish or yazidi More than 4 time s [...] documented as of this encounter Care Teams Mower Operator Relationship Specialty Start Date End Date Blaire Bundy P.A.-C. PCP - General 02/04/17 04/26/19 documented as of this encounter
--- OUTSIDE RECORDS SUMMARY | 2022-06-29 09:31 | XMS_ITS | Encounter Summary ---
:1985 Author Organization [facility] Address [address] [place] [address] Care Team Providers Name Role Phone Unavailable Primary Care Provider Unavailable Encounter Details Date Type Department Care Team Description 01/13/2017 Hospital Encounter HX [facility] Leonora Melchor A PRN, C.N.P. [address], [place] [phone] (Wo rk) Social History [...] How often do you attend baptist or confucianist More than 4 time s [...] Sign Reading Time Taken Comments Blood Pressure 124/70 01/13/2017 10:18 AM CDT Pulse - - Temperature - - Respiratory Rate - - Oxygen Saturation - - Inhaled Oxygen Concentration - - Weight 142 kg (313 lb 7.9 oz) 01/13/2017 10:18 AM CDT Height 158 cm (5' 2.21) 01/13/2017 10:18 AM CDT Body Mass Index 56.96 01/13/2017 10:18 AM CDT documented in this encounter Medications at Time of Discharge Medication Sig Dispensed Refills Start Date End Date ACETAMINOPHEN/DEXTROMETHORP Take by mouth. 0 04/201707/29/2017 SANDOVAL (ACETAMINOPHEN-DM ORAL) PNV NO.95/FERROUS FUM/FOLIC Take by mouth 0 11/0607/29/2017 AC ( MULTIVITAMINS daily. ORAL) documented as of this encounter Nursing Notes Cleopatra Laguerre L.PBrittaneyN. 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 You might be a little more tired than normal. So plan your day wisely. Look at the tips below and choose the ones that suit your lifestyle. If you have any questions, check with your health care provider. If You Work If you can, adjust your work with your employer to fit your needs. Try these tips: ?? If you stand for long periods, find ways to do some tasks while sitting. Also, try to stand with one foot resting on a low stool or ledge. Shift your weight from foot to foot often. Wear low-heeled shoes. ?? If you sit, keep your knees level with your hips. Rest your feet on a firm surface. Sit tall withsupport for your low back. ?? If you work long hours, ask about adjusting your schedule. Try taking shorter breaks more often. [email or web address] You Travel The second trimester may be the best time for any travel. Talk to your health care provider about any special plans you may need to make. Always: ?? Wear a seat belt. Fasten the lap part under your belly. Wear the shoulder part also. ?? Take frequent breaks during long trips by car or plane. Move around to stretch your legs. ?? Drink plenty of fluids on flights. The air in plane cabins is very dry. ?? Avoid hot climates or high altitudes if you are not used to them. ?? Avoid places where the food and water might make you sick. Taking Time to Relax Find time to rest and relax at work or at home: ?? Take short time-outs daily. Do relaxation exercises. ?? Breathe deeply during stressful times. ?? Try not to take on too much. Plan tasks for times when you have the most energy. ?? Take naps when you can. Or just sit and relax. ?? After week 16, avoid lying on your back for more than a few minutes. Instead, lie on your side. Switch sides often. Continuing as Lovers Unless your health care provider tells you otherwise, there is no reason to stop having sex now. Blood supply increases to the pelvic area in the second trimester. Because of this, sex might be more enjoyable. Try different positions and see whats best. Also, talk to your partner about any changes in desire. Spotting may occur after sex. Be sure to let your health care provider know if there is heavybleeding. Keeping Your Environment Safe You can still clean house and use scented products. Just take some simple precautions: ?? Wear gloves when using cleaning fluids. ?? Open windows to let in fresh air. Use a fan if you paint. ?? Avoid secondhand smoke. ?? Dont breathe fumes from nail iranian, hair spray, cleansers, or other chemicals. ?? [id number] [place] [address]. All rights reserved. This information is not intended as a substitute for professional medical care. Always follow your healthcare professional's instructions. This document has images extracted. Please consider using Medcurrent for all your patient education needs. Source: [facility] POWERCHART Document Id: [id number] documented in this encounter Miscellaneous Notes Miscellaneous - Leonora Villaseñor R.N. - 01/13/2017 11:31 AM CDT Ambulatory Patient Summary [facility] [address] [place], [place] [id number] Visit Information Name: PUNEET COOLEY [facility] Number: [id number] Current Date: 01/13/2017 11:31:39 Physicians Attending Provider: LEONORA VILLASEÑOR R.N., [facility] Primary Care Provider: CATRACHO NAZARIO PA-C [...] the Following Medications: Medication list as of 01-13-17 11:31 Attention: If you have any medications at [...] emergency. Electronically Signed By: LEONORA VILLASEÑOR R.N., [facility] Signed On:13-JAN-2017 11:31:37 Your Allergies & Intolerances Substance Reaction Symptoms Category Comments penicillins Drug Your Problem List Problem Status Onset Comments Headache Migraine Active 01/21/2012 Headache Active 10/24/2007 11/18/13 Headache Dysthymic Disorder Active 08/01/2010 11/18/13 Dysthymic disorder Abuse Tobacco Smoking NOS Active Body Mass Index (BMI) 50.0-59.9 Adult Active Active 10/03/2016 Your Upcoming Appointments Date Time Location Provider 02/11/2017 09:30 [facility] Ultrasound [facility] 1 02/11/2017 10:15 [facility] PROFESSIONAL ORGANIZER Marisol Irving CNP Attention: Contact your local Clinic if further appointment detail needed. Adapting to : Second Trimester Keep up the healthy habits you started in your first trimester. You might be a little more tired than normal. So plan your day wisely. Look at the tips below and choose the ones that suit your lifestyle. If you have any questions, check with your health care provider. If You Work If you can, adjust your work with your employer to fit your needs. Try these tips: ?? If you stand for long periods, find ways to do some tasks while sitting. Also, try to stand with one foot resting on a low stool or ledge. Shift your weight from foot to foot often. Wear low-heeled shoes. ?? If you sit, keep your knees level with your hips. Rest your feet on a firm surface. Sit tall withsupport for your low back. ?? If you work long hours, ask about adjusting your schedule. Try taking shorter breaks more often. When You Travel The second trimester may be the best time for any travel. Talk to your health care provider about any special plans you may need to make. Always: ?? Wear a seat belt. Fasten the lap part under your belly. Wear the shoulder part also. ?? Take frequent breaks during long trips by car or plane. Move around to stretch your legs. ?? Drink plenty of fluids on flights. The air in plane cabins is very dry. ?? Avoid hot climates or high altitudes if you are not used to them. ?? Avoid places where the food and water might make you sick. Taking Time to Relax Find time to rest and relax at work or at home: ?? Take short time-outs daily. Do relaxation exercises. ?? Breathe deeply during stressful times. ?? Try not to take on too much. Plan tasks for times when you have the most energy. ?? Take naps when you can. Or just sit and relax. ?? After week 16, avoid lying on your back for more than a few minutes. Instead, lie on your side. Switch sides often. Continuing as Lovers Unless your health care provider tells you otherwise, there is no reason to stop having sex now. Blood supply increases to the pelvic area in the second trimester. Because of this, sex might be more enjoyable. Try different positions and see whats best. Also, talk to your partner about any changes in desire. Spotting may occur after sex. Be sure to let your health care provider know if there is heavybleeding. Keeping Your Environment Safe You can still clean house and use scented products. Just take some simple precautions: ?? Wear gloves when using cleaning fluids. ?? Open windows to let in fresh air. Use a fan if you paint. ?? Avoid secondhand smoke. ?? Dont breathe fumes from nail iranian, hair spray, cleansers, or other chemicals. ?? [phone] Cecil Paez, [address] [place] [address], [place] [address]. All rights reserved. This information is not [...] if you dont have one. Go to [email or web address] and click on Create Your Account. Then, follow the directions to complete the online form. Youll be asked for your [facility] number which you can find at the top of this document. Your Goals/Additional instructions: This document has images extracted. Please consider using Medcurrent for all your patient education needs. Source: [facility] POWERCHART Document Id: [id number] Miscellaneous - Leonora Villaseñor R.N. - 01/13/2017 11:31 AM CDT Ambulatory Discharge Medication List [facility] [address] [place], [address] [place], [place] [id number] Visit Information Name: COOLEYDORITAPUNEETCARRIE ALVARADO [facility] Number: [id number] Current Date: 01/13/2017 11:31:38 Attending Provider: LEONORA VILLASEÑOR R.N., [facility] Primary Care Provider: CATRACHO NAZARIO PA-C DORITA COOLEYCARRIE ALVARADO has been given the following list [...] the Following Medications: Medication list as of 01-13-17 11:31 Attention: If you have any medications at [...] emergency. Electronically Signed By: LEONORA VILLASEÑOR R.N., [facility] Signed On:13-JAN-2017 11:31:37 Additional Information: Source: [facility] POWERCHART Document Id: [id number] Miscellaneous - Cleopatra Laguerre LBrittaneyP.N. 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 Feet swelling during work. LMP Date : 10/03/2016 Heart Rhythm : Regular Systolic Blood Pressure : 124 mmHg Diastolic Blood Pressure : 70 mmHg NIBP Mean : 88 mmHg BP Location : Left upper extremity Blood Pressure Cuff Size : Other: lower arm Height : 158 cm(Converted to: 5 ft 2 inch(es), 62 inch(es)) Actual Weight : 142.2 kg(Converted to: 313 lb 8 oz) Weight Source : Standing scale Dosing Weight Clinic : 142.2 kg Clinic BSA : 2.5 Body Mass Index : 56.96 kg/m2 CLEOPATRA LAGUERRE LPN - 01/13/2017 10:18 CDT General Info Information Given By : Patient Languages : Malagasy Is Patient Female and 13-50 no hysterectomy : Yes Status : Confirmed positive Are you ? : No CLEOPATRA LAGUERRE LPN - 01/13/2017 10:18 CDT Subjective Pain Symptoms : No CLEOPATRA LAGUERRE [facility] - 01/13/2017 10:18 CDT Dependent Habits Exposure to Tobacco Smoke : Patient smokes Smoking Status : Former smoker Tobacco 2A : Yes Tobacco Use/Currently Using : No Tobacco Use/Last 30 Days : No Tobacco Use/Last 12 months : Yes Tobacco Last Use/Month : November Tobacco Last Use/Year : 2016 Type : Other: quit 11/2016 CLEOPATRA LAGUERRE [facility] - 01/13/2017 10:18 CDT Caffeine Use Grid Caffeine Use : Current Type : Coffee, Soft drinks Frequency : Occasionally CLEOPATRA LAGUERRE [facility] 01/13/2017 10:18 CDT Recreational Drug Use Grid Drug Use : None CLEOPATRA LAGUERRE [facility] 01/13/2017 10:18 CDT Source: [employer] Document Id: [id number] CDT!42 documented in this encounter Plan of Treatment Scheduled Procedures Name Priority Associated Diagnoses Date/Time COLONOSCOPY Diarrhea documented as of this encounter Visit Diagnoses Not on filedocumented in this encounter Additional Health Concerns Assessment Noted Time PHQ-9 Depression Total Score: 11 12/13/2014 9:50 AM CD T documented as of this encounter
--- OUTSIDE RECORDS SUMMARY | 2022-06-29 09:31 | XMS_ITS | Encounter Summary ---
:1985 Author Organization [facility] Address [address] [place] [address] Care Team Providers Name Role Phone Blaire Bundy P.A.-C. Primary Care Provider Encounter Details Date Type Department Care Team Description 08/02/2017 Nurse Triage Department of [facility] Anastasia Sands, Medicine, [facility], R.N. in [address] [place] [address] [place] [address] [phone] Social History Tobacco Use Types Packs/Day Years [...] How often do you attend jewish or zoroastrian More than 4 time s per year [...] documented as of this encounter Care Teams Field Sampling Technician Relationship Specialty Start Date End Date Blaire Bundy P.A.-C. PCP - General 02/04/17 04/26/19 documented as of this encounter
--- OUTSIDE RECORDS SUMMARY | 2022-06-29 09:31 | XMS_ITS | Encounter Summary ---
:1985 Author Organization [facility] Address [address] [place] [address] Care Team Providers Name Role Phone Unavailable Primary Care Provider Unavailable Encounter Details Date Type Department Care Team Description 01/08/2017 Hospital Encounter HX [facility] [address] [place] [phone] (Wo rk) Social History Tobacco Use [...] How often do you attend rastafarian or mu-ism More than 4 time s [...] Sign Reading Time Taken Comments Blood Pressure 137/75 01/08/2017 8:53 AM CDT Pulse 91 01/08/2017 8:53 AM CDT Temperature - - Respiratory Rate 20 01/08/2017 8:53 AM CDT Oxygen Saturation - - Inhaled Oxygen Concentration - - Weight - - Height 158 cm (5' 2.21) 01/08/2017 8:53 AM CDT Body Mass Index - - documented in this encounter Medications at Time of Discharge Medication Sig Dispensed Refills Start Date End Date ACETAMINOPHEN/DEXTROMETHORP Take by mouth. 0 03/0 04/201707/29/2017 SANDOVAL (ACETAMINOPHEN-DM ORAL) PNV NO.95/FERROUS FUM/FOLIC Take by mouth 0 11/0607/29/2017 AC ( MULTIVITAMINS daily. ORAL) documented as of this encounter Miscellaneous Notes Miscellaneous - Craig Tolentino, L.P.N. - 01/08/2017 8:58 AM CDT *General Message Document Contains Addenda Addendum by JUDE OCONNOR LPN on January 08, 2017 13:44:00 CDT Message left on patients private voicemail advised to follow up with any questions. Addendum by LEONORA HOLMAN MD on January 08, 2017 13:39:18 CDT From: LEONORA HOLMAN MD To: [facility] Nurse Amarilys; Sent: 01/08/2017 13:39:18 CDT Subject: RE: *General Message Looks okay. Just needs to follow up with OB next week. ThanksLeonora From: CRAIG TOLENTINO LPN ([facility] Nurse Panda) To: LEONORA HOLMAN MD; Sent: 01/08/2017 08:58:35 CDT Subject: *General Message Patient came in for BP check and was seen by you yesterday in the clinic. Today's BP 139/78 Pulse-100 137/75 Pulse-91 Please advise. Thank you. Source: [facility] POWERCHART Document Id: [id number] Miscellaneous - Craig Tolentino, L.P.N. - 01/08/2017 8:53 AM CDT Ambulatory Vitals Height Weight Ambulatory Vitals Height Weight Entered On: 01/08/2017 8:54 CDT Performed On: 01/08/2017 8:53 CDT by CRAIG TOLENTINO LPN Vitals/Ht/Wt Peripheral Pulse Rate : 91 /min Respiratory Rate : 20 /min Systolic Blood Pressure : 137 mmHg Diastolic Blood Pressure : 75 mmHg NIBP Mean : 96 mmHg BP Location : Left upper extremity Blood Pressure Cuff Size : Large SpO2 : 97 % Height : 158 cm(Converted to: 5 ft 2 inch(es), 62 inch(es)) CRAIG TOLENTINO LPN - 01/08/2017 8:53 CDT Source: [employer] Document Id: [id number] CDT!11 Miscellaneous - Craig Tolentino, L.P.N. - 01/08/2017 8:50 AM CDT Ambulatory Vitals Height Weight Ambulatory Vitals Height Weight Entered On: 01/08/2017 8:51 CDT Performed On: 01/08/2017 8:50 CDT by CRAIG TOLENTINO LPN Vitals/Ht/Wt Peripheral Pulse Rate : 100 /min Systolic Blood Pressure : 139 mmHg Diastolic Blood Pressure : 78 mmHg NIBP Mean : 98 mmHg BP Location : Left upper extremity Blood Pressure Cuff Size : Large Height : 158 cm(Converted to: 5 ft 2 inch(es), 62 inch(es)) CRAIG TOLENTINO LPN - 01/08/2017 8:50 CDT Source: [employer] Document Id: [id number] CDT!9 documented in this encounter Plan of Treatment Scheduled Procedures Name Priority Associated Diagnoses Date/Time COLONOSCOPY Diarrhea documented as of this encounter Visit Diagnoses Not on filedocumented in this encounter Additional Health Concerns Assessment Noted Time PHQ-9 Depression Total Score: 11 12/13/2014 9:50 AM CD T documented as of this encounter
--- OUTSIDE RECORDS SUMMARY | 2022-06-29 09:31 | XMS_ITS | Encounter Summary ---
:1985 Author Organization [facility] Address [address] [place] [address] Care Team Providers Name Role Phone Blaire Bundy P.A.-C. Primary Care Provider [phone] Encounter Details Date Type Department Care Team Description 05/25/2017 Telemedicine Department of Obstetrics and Gynecology Social [...] How often do you attend cheondoism or jain More than 4 time s [...] Date/Time Associated Comments Diagnosis OBSTETRICS AND Routine 05/25/2017 10:45 AM Result s for this GYNECOLOGY IMAGE CDT procedure a re in EXAM the results section. documented in this encounter Results OBSTETRICS AND GYNECOLOGY IMAGE EXAM (05/25/2017 10:45 AM CDT) Specimen (Source) Anatomical Collection Method Collection Time Re ceived Time Location / / Volume Laterality 05/25/2017 10:45 AM CDT Narrative [facility] - 05/25/2017 11:20 AM CDT This order has been created and auto-finalized to support the import of images acquired without order. The clini huma documentation to support these images can be found on the encounter fidelina t produced images. Provider Not In System IMG NON RAD IMAGING PROCEDUR ES Performing Organization Address City/State/ZIP Code Phon e Number IINY [facility] NA documented in this encounter Visit Diagnoses Not on filedocumented in this encounter Additional Health Concerns Assessment Noted Time PHQ-9 Depression Total Score: 7 04/07/2017 9:39 AM CDT documented as of this encounter Care Teams Technician Telecommunication Systems Relationship Specialty Start Date End Date Blaire Bundy P.A.-C. PCP - General 02/04/17 04/26/19 documented as of this encounter
--- OUTSIDE RECORDS SUMMARY | 2022-06-29 09:31 | XMS_ITS | Encounter Summary ---
:1985 Author Organization [facility] Address [address] [place] [address] Care Team Providers Name Role Phone Blaire Bundy P.A.-C. Primary Care Provider [phone] Encounter Details Date Type Department Care Team Description 09/08/2017 Nurse Triage Department of [facility] Todd nikolas Marcos, RBrittaneyNBrittaney [facility], ([address] [place] [place] [address] Social History Tobacco Use Types Packs/Day Years [...] How often do you attend methodist or islam More than 4 time s [...] documented as of this encounter Care Teams Jig Fitter Relationship Specialty Start Date End Date Blaire Bundy P.A.-C. PCP - General 02/04/17 04/26/19 documented as of this encounter
--- OUTSIDE RECORDS SUMMARY | 2022-06-29 09:31 | XMS_ITS | Encounter Summary ---
:1985 Author Organization [facility] Address [address] [place] [address] Care Team Providers Name Role Phone Catracho Bundy P.A.-C. Primary Care Provider [phone] Encounter Details Date Type Department Care Team Description 05/30/2017 Hospital Encounter HX [facility] Rai Landaverde M.D. [address] [place] [address] (Wo rk) Social History Tobacco Use [...] How often do you attend mormonism or oriental orthodox More than 4 time [...] Sign Reading Time Taken Comments Blood Pressure 122/73 05/30/2017 3:45 PM CDT Pulse 96 05/30/2017 3:45 PM CDT Temperature - - Respiratory Rate 18 05/30/2017 3:45 PM CDT Oxygen Saturation - - Inhaled Oxygen Concentration - - Weight - - Height 158 cm (5' 2.21) 05/30/2017 3:05 PM CDT Body Mass Index - - documented in this encounter Discharge Summaries Shiela Bernal R.N. - 05/30/2017 4:15 PM CDT Discharge Summary Discharge Summary Entered On: 05/30/2017 16:34 CDT Performed On: 05/30/2017 16:15 CDT by SHIELA BERNAL RN DC Information Discharged to : Home independently Current Home Treatments : None Home Equipment : None Professional Skilled Services : None Special Services and Community Resources : None Mode of Discharge : Ambulatory Discharge Transportation : Private vehicle Accompanied By : Nurse, Family Date/Time of Discharge : 05/30/2017 16:15 CDT SHIELA BERNAL RN - 05/30/2017 16:34 CDT Education General Patient Education [employer] Topics : Discharge instructions/Medication list, Importance of follow-up visits, When to call healthcare provider Individuals Taught : Patient, Friend Barriers to Learning : None evident Teaching Method : Explanation, Printed materials Teaching Evaluation : Verbalizes understanding SHIELA BERNAL RN - 05/30/2017 16:34 CDT Source: [facility] POWERCHART Document Id: [id number] CDT!19 Shiela Bernal R.N. - 05/30/2017 4:07 PM CDT Hospital Discharge Instructions [address] [id number] Patient Discharge Instructions Name: FORREST PUNEET CHRISTIANO Current Date: 05/30/2017 16:07:19 : 1985 12:00 AM [facility] Number: [id number] Patient Address: [address] [place] [phone] Patient Primary Care Provider: Name: CATRACHO NAZARIO Briana WHITING Discharge Diagnosis: [facility] - May would like to thank you for allowing us to assist you with yourhealthcare needs. The following includes patient education materials and information regarding your injury/illness. Comment: PUNEET CLAYTON has been given the following list of follow-up instructions, medication list andpatient education materials: Follow-up Instructions Medications Medication/Strength How to Take Indications/Special Instructions/Comments/Notes for Patient Medication Changes/Routing acetaminophen (Tylenol) Oral multivitamin, ( Multivitamins) Oral, once a day Stop Taking the Following Medications: Medication list as of 05-30-17 16:07 Attention: If you have any medications at home that are not on this list, DO NOT take them until youcontact your provider for clarification. Give a copy of your medication list to your primary care provider. Update your medication list any time medications or doses are changed and carry your medication list at all times in case of emergency. Comment: Electronically Signed By: Signed On: Your Upcoming Appointments Date Time Location Provider 06/08/2017 09:00 [facility] RECORDIST Jean Paul MONTEMAYOR, Leonora Bustillos Consider Using Patient Online Services Patient Online [...] if you dont have one. Go to [email or web address] and click on Create Your Account. Then, follow the directions to complete the online form. Youll be asked for your [facility] number which you can find at the top of this document. IFORREST AMANDA KAY , have received the attached patient education materials/instructions and have verbalized understanding: Patient Signature Date Time Care Provider Signature Date Time Labor and Childbirth: Your Body Prepares Labor is the series of uterine contractions that dilate (open) and efface (thin) your cervix for . Your due date is a guide to when labor will begin, but babies often come days or weeks before or after due dates. Even so, labor need not take you by surprise. In the last weeks of , you oryour healthcare provider may notice changes that mean labor is near. Changes in Your Body Physical changes often signal that your baby will soon be born: Discharge from your vagina may increase and become thicker. You may notice a pink or brownish discharge called the bloody show. The mucous plug may break down over a few weeks or all at once. Losing the plug doesnt mean that labor will start right away. You may feel [place] Ling contractions (false labor). These irregular contractions start to soften and thin the cervix. Many women mistake these contractions for true labor. They may be more noticable towards the end of the day. Feeling like the baby has dropped lower. In preparation for , the baby's head has settled deep into your pelvis. ?? [id number] [facility], [address] [place] [address], [place] [address]. All rights reserved. This information is not intended as a substitute for professional medical care. Always follow your healthcare professional's instructions. Kick Counts Its normal to worry about your babys health. One way you can know your babys doing well is to recordthe babys movements once a day. This is called a kick count. You will usually feel your baby move bythe 20th week of . Remember to take your kick count records to all your appointments with your healthcare provider. How to Count Kicks ?? Choose a time when the baby is active, such as after a meal. ?? Sit comfortably or lie on your side. ?? The first time the baby moves, write down the time. ?? Count each movement until the baby has moved 10 times. This can take from 20 minutes to 2 hours. ?? If the baby hasnt moved 4 times in 1 hour, pat your stomach to wake the baby up. ?? Write down the time you feel the babys 10th movement. ?? Try to do it at the same time each day. When to Call Your Healthcare Provider Call your healthcare provider right away if you notice any of the following: ?? Your baby moves fewer than 10 times in 4 hours while youre doing kick counts. ?? Your baby moves much less often than on the days before. ?? You have not felt your baby move all day. ?? [id number] [facility], [address] [place] [address], [place] [address]. All rights reserved. This information is not intended as a substitute for professional medical care. Always follow your healthcare professional's instructions. This document has images extracted. Please consider using [employer] for all your patient education needs. Source: [facility] POWERCHART Document Id: [id number] Shiela Bernal R.N. - 05/30/2017 4:07 PM CDT Hospital Discharge Medication List [address] [address] Discharge Medication List Name: PUNEET CLAYTON Current Date: 05/30/2017 16:07:18 : 1985 12:00 AM [facility] Number: [id number] Patient Address: [address] [place] [phone] Patient Primary Care Provider: Name: CATRACHO NAZARIO PA-C Discharge Diagnosis: [facility] in May would like to thank you for allowing us to assist you with your healthcare needs. The following includes patient education materials and information regarding yourinjury/illness. Medications Medication/Strength How to Take Indications/Special Instructions/Comments/Notes for Patient Medication Changes/Routing acetaminophen (Tylenol) Oral multivitamin, ( Multivitamins) Oral, once a day Stop Taking the Following Medications: Medication list as of 05-30-17 16:07 Attention: If you have any medications at home that are not on this list, DO NOT take them until youcontact your provider for clarification. Give a copy of your medication list to your primary care provider. Update your medication list any time medications or doses are changed and carry your medication list at all times in case of emergency. Comment: Electronically Signed By: Signed On: Source: [employer] Document Id: [id number] documented in this encounter Medications at Time of Discharge Medication Sig Dispensed Refills Start Date End Date ACETAMINOPHEN/DEXTROMETHORP Take by mouth. 0 03/0 04/201707/29/2017 SANDOVAL (ACETAMINOPHEN-DM ORAL) PNV NO.95/FERROUS FUM/FOLIC Take by mouth 0 11/0607/29/2017 AC ( MULTIVITAMINS daily. ORAL) documented as of this encounter Nursing Notes Shiela Bernal R.N. - 05/30/2017 4:10 PM CDT Antepartum Testing Antepartum Testing Entered On: 05/30/2017 16:29 CDT Performed On: 05/30/2017 16:10 CDT by SHIELA BERNAL RN NST, Baby A/Barrera Comment : Pt. states is feeling baby move a lot more now. This nurse felt baby move 4 or 5 times while holding the monitor in place for 20 minutes. SHIELA BERNAL RN - 05/30/2017 16:31 CDT Indication for Test : Decreased movement Heart Rate Baseline : 135 Variability : Moderate Accelerations : 15 x 15 Decelerations : Absent Contractions : Absent Interpretation : Reactive Provider : SHIELA LANDAVERDE MD, ASHLEY RN - 05/30/2017 16:28 CDT Source: [facility] [employer] Document Id: [id number]!3 Shiela Bernal R.N. - 05/30/2017 3:45 PM CDT Ongoing Assessment Antepartum Ongoing Assessment Antepartum Entered On: 05/30/2017 16:31 CDT Performed On: 05/30/2017 15:45 CDT by SHIELA BERNAL filing and polishing supervisor Chief Complaint : decreased movement last few days Movement : Decreased Contractions, Subjective : No Urge To Push, Subjective : No Leaking Fluid, Subjective : No Vaginal Bleeding : No Heart Rate : 135 Acute Respiratory or Cardiac Distress : No Temperature Core : 37 DegC(Converted to: 98.6 DegF) Peripheral Pulse Rate : 96 /min Respiratory Rate : 18 /min Systolic Blood Pressure : 122 mmHg Diastolic Blood Pressure : 73 mmHg SHIELA BERNAL RN - 05/30/2017 16:29 CDT Respiratory Respiratory Patient Stated Symptoms : None Respirations : Unlabored Distress : None Respiratory Pattern : Regular All Lobes Breath Sounds : Clear SHIELA BERNAL RN - 05/30/2017 16:29 CDT Cardiovascular CV Patient Stated Symptoms : None Heart Rhythm : Regular Antiembolism Device Yes/No : No Nail Bed Color : [place] Capillary Refill : Less than 2 seconds Edema Assessment : No Skin Color : Normal for ethnicity Skin Description : Normal Skin Temperature : Warm Activity Tolerance : Without distress SHIELA BERNAL RN - 05/30/2017 16:29 CDT Neurological Neuro Patient Stated Symptoms : None Orientation : Oriented x 3 Level of Consciousness : Alert Gait : Steady Swallowing Difficulty/Aspiration Risk : None SHIELA BERNAL RN 05/30/2017 16:29 CDT [place] Coma Eye Opening Response Jenise : Spontaneously Best Verbal Response [place] : Oriented Best Motor Response [place] : Obeys simple commands [place] Coma Score : 15 SHIELA BERNAL RN - 05/30/2017 16:29 CDT Psycho/Emotional Affect/Behavior : Calm, Cooperative, Appropriate Pain Symptoms : No SHIELA BERNAL RN - 05/30/2017 16:29 CDT Coping Grid Identifies effective strategies : Yes Uses effective strategies : Yes Reports increase in psychological comfort : Yes Indicates sense of control : Yes Stressors perceived within control : Yes Stable mood with appropriate affect : Yes Behaviors indicate use of coping mechanism : Yes Family supportive and involved in care : Yes Values/Beliefs incorporated appropriately : Yes SHIELA BERNAL RN - 05/30/2017 16:29 CDT Safety Grid Vision, Hearing, Mobility Adequate to Meet Safety Needs : Yes SHIELA BERNAL RN 05/30/2017 16:29 CDT Gastrointestinal GI Patient Stated Symptoms : None Abdomen Description : Symmetric Abdomen Palpation : Soft SHIELA BERNAL RN - 05/30/2017 16:29 CDT Nutrition Appetite : Excellent Eating Difficulties : None Feeding Ability : Complete independence SHIELA BERNAL RN - 05/30/2017 16:29 CDT Genitourinary Patient Stated Symptoms : None Urinary Elimination : Voiding, no difficulties Urine Color : Yellow Urine Description : Clear Urine Odor : Odorless SHIELA BERNAL RN - 05/30/2017 16:29 CDT Integumentary Integumentary Patient Stated Symptoms : None Skin Turgor : Elastic Skin Integrity : Intact Mucous Membrane Color : [place] Mucous Membrane Description : Moist Skin Color : Normal for ethnicity Skin Description : Normal Skin Temperature : Warm SHIELA BERNAL RN - 05/30/2017 16:29 CDT Kristopher Sensory Perception Kristopher : No impairment Moisture Kristopher : Rarely moist Activity Kristopher : Walks frequently Mobility Kristopher : No limitations Nutrition Kristopher : Excellent Friction and Shear Kristopher : No apparent problem Kristopher Score : 23 SHIELA BERNAL RN - 05/30/2017 16:29 CDT Musculoskeletal Musculoskeletal Patient Stated Symptoms : None Activity Tolerance : Without distress SHIELA BERNAL RN - 05/30/2017 16:29 CDT Falls Assessment Fall Injury Risk History of Falls : No Patient at Risk for Falls : No Fall Injury Risk Factors : None of the below Risk Factors Patient has increased Fall Injury Risk : No SHIELA BERNAL RN - 05/30/2017 16:29 CDT Hendrich II Fall Risk Confusion/Disorientation Hendrich : No Depression Fall Risk Hendrich : No Altered Elimination Fall Risk Hendrich : No Dizziness/Vertigo Fall Risk Hendrich : No Gender, Male Fall Risk Hendrich : No Prescribed Antiepileptics Hendrich : No Prescribed Benzodiazepines Hendrich : No Rising From Chair Fall Risk Hendrich : Pushes up, successful in one attempt Fall Risk Score Hendrich II : 1 SHIELA BERNAL RN - 05/30/2017 16:29 CDT Source: [employer] Document Id: [id number] CDT!107 documented in this encounter Miscellaneous Notes Miscellaneous - Conversion, Historical Provider Ser - 05/30/2017 4:15 PM CDT Coding Summary-Paper Based CODING DATE: 05/31/2017 FINAL [facility] STATUS: * Discharged to Home or Self Care PAYOR: MMSI ADMIT DX: REASON FOR VISIT DX: FINAL DX: PRINCIPAL: O36.8130 Decreased movements, third trimester, not applicable or unspecified SECONDARY: Z3A.35 35 weeks gestation of PROCEDURES DOCTOR NAME DATE NOTE: The code number assigned matches the documented diagnosis and / or procedure in the patient's chart. However, the narrative phrase printed from the coding software may appear abbreviated, or result in slightly different terminology. Coded By: ANGELA ROLDAN Date Saved: 05/31/2017 10:39 am [facility] Document Id: [id number] documented in this encounter Plan of Treatment Scheduled Procedures Name Priority Associated Diagnoses Date/Time COLONOSCOPY Diarrhea documented as of this encounter Visit Diagnoses Not on filedocumented in this encounter Additional Health Concerns Assessment Noted Time PHQ-9 Depression Total Score: 7 04/07/2017 9:39 AM CDT documented as of this encounter Care Teams Event Marketing Representative Relationship Specialty Start Date End Date Catracho Bundy P.A.-C. PCP - General 02/04/17 04/26/19 documented as of this encounter
--- OUTSIDE RECORDS SUMMARY | 2022-06-29 09:31 | XMS_ITS | Encounter Summary ---
:1985 Author Organization [facility] Address [address] [place] [address] Care Team Providers Name Role Phone Blaire Bundy P.A.-C. Primary Care Provider Encounter Details Date Type Department Care Team Description 03/11/2017 Hospital Encounter HX [facility] Leonora Reaves, POLE CLASSIFIER, C.N.P. [address] [place] [address] (Wo rk) Social History Tobacco [...] How often do you attend faith or hindu More than 4 time s per year [...] Taken Comments Blood Pressure - - Pulse - - Temperature - - Respiratory Rate - - Oxygen Saturation - - Inhaled Oxygen Concentration - - Weight - - Height 158 cm (5' 2.21) 03/11/2017 1:32 PM CDT Body Mass Index - - documented in this encounter Medications at Time of Discharge Medication Sig Dispensed Refills Start Date End Date ACETAMINOPHEN/DEXTROMETHORP Take by mouth. 0 03/04/201707/29/2017 SANDOVAL (ACETAMINOPHEN-DM ORAL) PNV NO.95/FERROUS FUM/FOLIC Take by mouth 0 11/0607/29/2017 AC ( MULTIVITAMINS daily. ORAL) documented as of this encounter Miscellaneous Notes Miscellaneous - Conversion, Historical Provider Ser - 03/11/2017 11:59 PM CDT Coding Summary-Paper Based CODING DATE: 03/16/2017 FINAL [facility] STATUS: * Discharged to Home or Self Care PAYOR: MMSI ADMIT DX: REASON FOR VISIT DX: FINAL DX: PRINCIPAL: Z36 Encounter for screening of mother SECONDARY: Z3A.24 24 weeks gestation of PROCEDURES DOCTOR NAME DATE NOTE: The code number assigned matches the documented diagnosis and / or procedure in the patient's chart. However, the narrative phrase printed from the coding software may appear abbreviated, or result in slightly different terminology. Coded By: ANGELA ROLDAN Date Saved: 03/16/2017 02:50 pm Source: [facility] POWERCHART Document Id: [id number] documented in this encounter Plan of Treatment Scheduled Procedures Name Priority Associated Diagnoses Date/Time COLONOSCOPY Diarrhea documented as of this encounter Visit Diagnoses Not on filedocumented in this encounter Additional Health Concerns Assessment Noted Time PHQ-9 Depression Total Score: 11 12/13/2014 9:50 AM CD T documented as of this encounter Care Teams Satellite Dish Repairer Relationship Specialty Start Date End Date Blaire Bundy P.A.-C. PCP - General 02/04/17 04/26/19 documented as of this encounter
--- OUTSIDE RECORDS SUMMARY | 2022-06-29 09:31 | XMS_ITS | Encounter Summary ---
:1985 Author Organization [facility] Address [address] [place] [address] Care Team Providers Name Role Phone Blaire Bundy P.A.-C. Primary Care Provider Encounter Details Date Type Department Care Team Description 04/07/2017 Hospital Encounter HX [facility] Leonora Melchor, Maureen TARIQ, C.N.P. [address] [place], [place] [address] (Wo rk) Social History [...] How often do you attend voodoo or hindu More than 4 time s [...] Sign Reading Time Taken Comments Blood Pressure 118/70 04/07/2017 9:10 AM CDT Pulse - - Temperature - - Respiratory Rate - - Oxygen Saturation - - Inhaled Oxygen Concentration - - Weight 144 kg (317 lb 0.3 oz) 04/07/2017 9:10 AM CDT Height 158 cm (5' 2.21) 04/07/2017 9:10 AM CDT Body Mass Index 57.6 04/07/2017 9:10 AM CDT documented in this encounter Medications at Time of Discharge Medication Sig Dispensed Refills Start Date End Date ACETAMINOPHEN/DEXTROMETHORP Take by mouth. 0 03/0 04/201707/29/2017 SANDOVAL (ACETAMINOPHEN-DM ORAL) PNV NO.95/FERROUS FUM/FOLIC Take by mouth 0 11/0607/29/2017 AC ( MULTIVITAMINS daily. ORAL) documented as of this encounter Plan of Treatment Scheduled Procedures Name Priority Associated Diagnoses Date/Time COLONOSCOPY Diarrhea documented as of this encounter Visit Diagnoses Not on filedocumented in this encounter Additional Health Concerns Assessment Noted Time PHQ-9 Depression Total Score: 7 04/07/2017 9:39 AM CDT documented as of this encounter Care Teams Dolphin Researcher Relationship Specialty Start Date End Date Blaire Bundy P.A.-C. PCP - General 02/04/17 04/26/19 documented as of this encounter
--- OUTSIDE RECORDS SUMMARY | 2022-06-29 09:31 | XMS_ITS | Encounter Summary ---
:1985 Author Organization [facility] Address [address] [place] [address] Care Team Providers Name Role Phone Catracho Bundy P.A.-C. Primary Care Provider [phone] Encounter Details Date Type Department Care Team Description 02/11/2017 Hospital Encounter HX [facility] Marisol Galaviz, SUZI N, C.N.P. [address] [place], [place] [phone] (Wo rk) Social History [...] or relatives? How often do you attend mosque or [employer] More than 4 time s per year 07/09/2020 services? Do you belong to any clubs or organizations No 04/19/2019 such as mosque groups, unions, fraternal or athletic groups, or [...] Sign Reading Time Taken Comments Blood Pressure 126/74 02/11/2017 10:23 AM CDT Pulse - - Temperature - - Respiratory Rate - - Oxygen Saturation - - Inhaled Oxygen Concentration - - Weight 145 kg (319 lb 14.2 oz) 02/11/2017 10:23 AM CDT Height 158 cm (5' 2.21) 02/11/2017 10:23 AM CDT Body Mass Index 58.12 02/11/2017 10:23 AM CDT documented in this encounter Medications at Time of Discharge Medication Sig Dispensed Refills Start Date End Date ACETAMINOPHEN/DEXTROMETHORP Take by mouth. 0 /04/201707/29/2017 SANDOVAL (ACETAMINOPHEN-DM ORAL) PNV NO.95/FERROUS FUM/FOLIC Take by mouth 0 11/0607/29/2017 AC ( MULTIVITAMINS daily. ORAL) documented as of this encounter Nursing Notes Cleopatra Laguerre L.P.N. - 02/11/2017 10:21 AM CDT Ambulatory Patient Education The following Patient Education Materials have been given to the patient: Patient Education Materials: Edge Runner Healthy Eating Habits During Edge Runner Healthy Eating Habits During Its important to develop healthy eating habits while you are , for you as well as for your baby. Here are some ways to stay healthy. Aim for a Healthy Weight A slow, steady rate of weight gain is often best. After the first trimest er, you may gain about a pound a week. If you were overweight before , you need to gain fewer pounds. Your doctor can give you a healthy weight goal for your . Dont Diet Now is not the time to diet. You may not get enough of the nutrients you and your baby need. Instead, learn how to be a healthy eater. Start by doing it for your baby. Soon, you may do it for yourself. Vitamins and Supplements Talk with your healthc are provider about taking these and other vitamins and supplements. ?? Iron makes the extra blood you need now. ?? Calcium and vitamin D help build and keep strong bones. ?? Folic acid helps prevent certain defects. ?? Some vitamins may not be safe to take. Your health care provider will tell you which ones to avoid. Fluids Drink at least 8-10 cups of fluid daily. Your baby needs fluids. Fluids also decrease constipation, flush out toxins and waste, limit swelling, and help prevent bladder infections. Water is best. Othergood choices are: ?? Water or seltzer water with a slice of lemon or del[place] tribe (these can also help ease an upset stomach) ?? Clear soups that are low in salt ?? Low-fat or fat-free milk; soy or rice milk with calcium added ?? 100% fruit juices mixed with water ?? Popsicles or gelatin Things to Avoid Some things might harm your growing baby. Dont eat or drink: Alcohol Unpasteurized dairy foods and juices Raw or undercooked meat, poultry, fish, or eggs Prepared meats, such as deli meats or hot dogs, unless heated until steaming hot Fish that are high in mercury, such as shark, swordfish, pa mackerel, tilefish, and albacore tuna Things to Limit Ask your health care provider whether its safe to eat or drink: Caffeine Artificial sweeteners Organ meats Certain types of fish Fish and shellfish that contain mercury in lower amounts, such as shrimp, canned light tuna, salmon, pollock, and catfish ?? [address] [place] [address]. All rights reserved. This information is not intended as a substitute for professional medical care. Always follow your healthcare professional's instructions. This document has images extracted. Please consider using [employer] for all your patient education needs. Source: [facility] POWERCHART Document Id: [id number] documented in this encounter Miscellaneous Notes Miscellaneous - Marisol Marques, C.N.P., R.N. - 02/11/2017 10:38 AM CDT Ambulatory Discharge Medication List [facility] [address] [place], [place] [phone] Visit Information Name: PUNEET CLAYTON [facility] Number: [id number] Current Date: 02/11/2017 10:38:54 Attending Provider: MARISOL MARQUES CNP, manual plate filler Provider: CATRACHO NAZARIO PA-C PUNEET CLAYTON has [...] the Following Medications: Medication list as of 02-11-17 10:38 Attention: If you have any medications at home that are not on this list, DO NOT take them until youcontact your provider for clarification. Give a copy of your medication list to your primary care provider. Update your medication list any time medications or doses are changed and carry your medication list at all times in case of emergency. Electronically Signed By: MARISOL MARQUES CNP RN Signed On:11-FEB-2017 10:38:51 Additional Information: Source: [facility] POWERCHART Document Id: [id number] Miscellaneous - Marisol Marques C.N.P., R.N. - 02/11/2017 10:38 AM CDT Ambulatory Patient Summary [facility] [address] [facility] [place], [place] [phone] Visit Information Name: PUNEET CLAYTON [facility] Number: [id number] Current Date: 02/11/2017 10:38:55 Physicians Attending Provider: MARISOL MARQUES CNP, manual plate filler Provider: CATRACHO NAZARIO PA-C PUNEET CLAYTON has [...] the Following Medications: Medication list as of 02-11-17 10:38 Attention: If you have any medications at home that are not on this list, DO NOT take them until youcontact your provider for clarification. Give a copy of your medication list to your primary care provider. Update your medication list any time medications or doses are changed and carry your medication list at all times in case of emergency. Electronically Signed By: MARISOL MARQUES CNP RN Signed On:11-FEB-2017 10:38:51 Your Allergies & Intolerances Substance Reaction Symptoms [...] local Clinic if further appointment detail needed. Healthy Eating Habits During Its important to develop healthy eating habits while you are , for you as well as for your baby. Here are some ways to stay healthy. Aim for a Healthy Weight A slow, steady rate of weight gain is often best. After the first trimester, you may gain about a pound a week. If you were overweight before , you need to gain fewer pounds. Your doctor can give you a healthy weight goal for your . Dont Diet Now is not the time to diet. You may not get enough of the nutrients you and your baby need. Instead, learn how to be a healthy eater. Start by doing it for your baby. Soon, you may do it for yourself. Vitamins and Supplements Talk with your healthc are provider about taking these and other vitamins and supplements. ?? Iron makes the extra blood you need now. ?? Calcium and vitamin D help build and keep strong bones. ?? Folic acid helps prevent certain defects. ?? Some vitamins may not be safe to take. Your health care provider will tell you which ones to avoid. Fluids Drink at least 8--10 cups of fluid daily. Your baby needs fluids. Fluids also decrease constipation,flush out toxins and waste, limit swelling, and help prevent bladder infections. Water is best. Other good choices are: ?? Water or seltzer water with a slice of lemon or del[place] tribe (these can also help ease an upset stomach) ?? Clear soups that are low in salt ?? Low-fat or fat-free milk; soy or rice milk with calcium added ?? 100% fruit juices mixed with water ?? Popsicles or gelatin Things to Avoid Some things might harm your growing baby. Dont eat or drink: Alcohol Unpasteurized dairy foods and juices Raw or undercooked meat, poultry, fish, or eggs Prepared meats, such as deli meats or hot dogs, unless heated until steaming hot Fish that are high in mercury, such as shark, swordfish, pa mackerel, tilefish, and albacore tuna Things to Limit Ask your health care provider whether its safe to eat or drink: Caffeine Artificial sweeteners Organ meats Certain types of fish Fish and shellfish that contain mercury in lower amounts, such as shrimp, canned light tuna, salmon, pollock, and catfish ?? [id number] [facility], [address] [place] [address], [place] [address]. All rights reserved. This information is not [...] if you dont have one. Go to [email or web address] and click on Create Your Account. Then, follow the directions to complete the online form. Youll be asked for your [facility] number which you can find at the top of this document. Your Goals/Additional instructions: This document has images extracted. Please consider using [employer] for all your patient education needs. Source: [facility] POWERCHART Document Id: [id number] Miscellaneous - Cleopatra Laguerre L.P.N. 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 LMP Date : 10/03/2016 Heart Rhythm : Regular Systolic Blood Pressure : 126 mmHg Diastolic Blood Pressure : 74 mmHg NIBP Mean : 91 mmHg BP Location : Left upper extremity Blood Pressure Cuff Size : Large Height : 158 cm(Converted to: 5 ft 2 inch(es), 62 inch(es)) Actual Weight : 145.1 kg(Converted to: 319 lb 14 oz) Weight Source : Standing scale Dosing Weight Clinic : 145.1 kg Clinic BSA : 2.52 Body Mass Index : 58.12 kg/m2 CLEOPATRA LAGUERRE LPN - 02/11/2017 10:23 CDT General Info Information Given By : Patient Languages : Austrian Is Patient Female and 13-50 no hysterectomy : Yes Status : Confirmed positive Are you ? : No CLEOPATRA LAGUERRE LPN - 02/11/2017 10:23 CDT Subjective Pain Symptoms : No CLEOPATRA LAGUERRE LPN - 02/11/2017 10:23 CDT Dependent Habits Exposure to Tobacco Smoke : Other: Trying to quit. Smoking Status : Former smoker Tobacco 2A : Yes Tobacco Use/Currently Using : No Tobacco Use/Last 30 Days : No Tobacco Use/Last 12 months : No Tobacco Last Use/Month : November Tobacco Last Use/Year : 2016 CLEOPATRA LAGUERRE LPN - 02/11/2017 10:23 CDT Caffeine Use Grid Caffeine Use : Current Type : Coffee, Soft drinks Frequency : Occasionally CLEOPATRA LAGUERRE LPN - 02/11/2017 10:23 CDT Recreational Drug Use Grid Drug Use : None CLEOPATRA LAGUERRE LPN - 02/11/2017 10:23 CDT Source: [facility] POWERCHART Document Id: [id number]!41 documented in this encounter Plan of Treatment Scheduled Procedures Name Priority Associated Diagnoses Date/Time COLONOSCOPY Diarrhea documented as of this encounter Visit Diagnoses Not on filedocumented in this encounter Additional Health Concerns Assessment Noted Time PHQ-9 Depression Total Score: 11 12/13/2014 9:50 AM CD T documented as of this encounter Care Teams Dynamo Tender Relationship Specialty Start Date End Date Catracho Bundy P.A.-C. PCP - General 02/04/17 04/26/19 documented as of this encounter
--- OUTSIDE RECORDS SUMMARY | 2022-06-29 09:32 | XMS_ITS | Encounter Summary ---
:1985 Author Organization [facility] Address [address] [place] [address] Care Team Providers Name Role Phone Unavailable Primary Care Provider Unavailable Encounter Details Date Type Department Care Team Description 03/20/2015 Hospital Encounter HX [facility] Barbra Yancey M.D. [address] [place] [phone] (Wo rk) Social History Tobacco Use Types Packs/Day Years Used Date Smoking Tobacco: Never Assessed Alcohol Habits Answer Date Recorded How often [...] How often do you attend adventism or [employer] More than 4 time s [...] Concentration - - Weight - - Height 157 cm (5' 1.81) 03/20/2015 9:24 AM CDT Body Mass Index - - documented in this encounter Miscellaneous Notes Miscellaneous - Conversion, Historical Provider Ser - 03/20/2015 11:59 PM CDT Coding Summary-Paper Based CODING DATE: 03/28/2015 FINAL [place] [facility] STATUS: * Discharged to Home or Self Care PAYOR: [employer] ADMIT DX: 733.20 Cyst of Bone (Localized), Unspecified REASON FOR VISIT DX: 733.20 Cyst of Bone (Localized), Unspecified FINAL DX: PRINCIPAL: 733.20 Cyst of Bone (Localized), Unspecified SECONDARY: 793.0 Nonspecific (Abnormal) Findings on Radiological and Other Examination of Skull and Head PROCEDURES DOCTOR NAME DATE NOTE: The code number assigned matches the documented diagnosis and / or procedure in the patient's chart. However, the narrative phrase printed from the coding software may appear abbreviated, or result in slightly different terminology. Coded By: ADELINA ZENG Date Saved: 03/28/2015 07:42 am Source: [employer] POWERCHART Document Id: [id number] documented in this encounter Plan of Treatment Scheduled Procedures Name Priority Associated Diagnoses Date/Time COLONOSCOPY Diarrhea documented as of this encounter Visit Diagnoses Not on filedocumented in this encounter Additional Health Concerns Assessment Noted Time PHQ-9 Depression Total Score: 11 12/13/2014 9:50 AM CD T documented as of this encounter
--- OUTSIDE RECORDS SUMMARY | 2022-06-29 09:32 | XMS_ITS | Encounter Summary ---
:1985 Author Organization [facility] Address [address] [place] [address] Care Team Providers Name Role Phone Unavailable Primary Care Provider Unavailable Encounter Details Date Type Department Care Team Description 01/06/[address] [facility] Ashwin Bundy, P.A.-C. [address] [place], [place] [phone] (Wo rk) Social History Tobacco Use Types [...] How often do you attend restorationism or alevism More than 4 time s [...] Sign Reading Time Taken Comments Blood Pressure 119/68 01/06/2016 8:32 AM CDT Pulse 78 01/06/2016 8:25 AM CDT Temperature - - Respiratory Rate 16 01/06/2016 8:25 AM CDT Oxygen Saturation - - Inhaled Oxygen Concentration - - Weight - - Height 157 cm (5' 1.81) 01/06/2016 8:32 AM CDT Body Mass Index - - documented in this encounter Progress Notes Catracho Thornton P.A.-C. - 01/06/2016 11:52 AM CDT Clinic Full Note CHIEF COMPLAINT/REASON FOR VISIT Lesion back on neck HISTORY OF PRESENT ILLNESS Patient is a 30 year old female here today for evaluation of a skin lesion she has had for 2 or more years. The patient is concerned as her grandparents have a long history of skin cancer. She has hadthis skin lesion for 2 years. She is unsure if it has changed as it is locate on the right back of her neck. She indicates it does not bleed and denies any pain. She denies noticing any enlarged lymph nodes in the neck. The patient has no personal history of skin cancer but grandparents skin cancer. Her parents and siblings are healthy. The patient indicates she has used to use the tanning beds in the past, has not for 3 years. MEDICATIONS ibuprofen 200 mg oral tablet, See Instructions, 3-4 tabs prn topiramate 25 mg oral tablet, 50 mg, 2 tab(s), 1 tab at bedtime x 3 days, then 1 2x day x 3 days, then 1 in AM and 2 HS x 3 days, then 2 tabs 2x day, PO, Daily, 5 refills, * * indicates non-compliance ALLERGIES penicillins PAST MEDICAL HISTORY Chronic Abuse Tobacco Smoking NOS Dysthymic Disorder Headache Headache Migraine Historical PROCEDURES/SURGICAL HISTORY Pap smear (01/25/2013), Pap smear (01/25/2013). SOCIAL HISTORY Date Time: 01/06/2016 08:25 Tobacco: Smoking Status: Current some day smoker Exposure: Patient smokes Alcohol: Use: No Recreational Drugs: Use: None Type: No Results [...] Anesthesia; Bleeding disorder; Hearing loss SYSTEMS REVIEW GENERAL: No fevers, no chills CARDIAC: No chest pain PULMONARY: No cough, no shortness of breath GI: No nausea, no vomiting VITAL SIGNS T: 36.9 ??C (Core) HR: 78 RR: 16 BP: 119 / 68 SpO2: 98% HT: 157 cm PHYSICAL EXAMINATION GENERAL: Patient is in no distress. SKIN: Right nape of neck with 7mm x 4mm erythematous shiny rough patch, nontender to touch, no warmth NEURO: Alert and nonfocal, moving all 4 extremities PSYCH: Appropriate affect Procedure: Punch Biopsy Consent: Written Anesthetic: 1% lidocaine 1cc Area was cleaned and prepped with iodine swabs x3, sterile technique followed. 2mm punch biopsy obtained. Wound cleaned, Vaseline and band aid placed. Patient tolerated procedure well. No complications. IMPRESSION/REPORT/PLAN Lesion Skin Neck Given the length of time the patient has had the lesion and the look I did opt to take a punch biopsy for further evaluation. Procedure was performed as noted above. We discussed sun protection and safety (sun screen 30 SPF or more, apply often, no tanning beds, cover up in the sun). Will call patient with results of the biopsy when they have returned. Ordered: OV Est Pt Level 4 - [id number] - 25 min Total time spent 25 minutes, 15 minutes counseling the patient regarding sun care for skin (no tanning beds, cover when in the sun and wear sun screen) and performing the above procedure. Electronically Signed By: CATRACHO THORNTON P.A.-C. On: 01/08/2016 07:59 AM Source: [employer] POWERCHART Document Id: [id number] documented in this encounter Miscellaneous Notes Miscellaneous - Edwin Tucker - 06/25/2016 2:14 PM CDT PHQ9 update / Quality Measures Document Contains Addenda Addendum by JUDE CARDONA LPN on June 26, 2016 09:15:55 CDT Message left for patient to call back to review no current medication noted. From: EDWIN TUCKER To: MCKENZIE Family Medicine Nurse Panda; Sent: 06/25/2016 14:14:34 CDT Show up: 06/25/2016 14:13:00 CDT Subject: PHQ9 update / Quality Measures Please Remember to: This patient has been reviewed for quality measures. Patient has a previous diagnosis for depression/anxiety. Please review to see if diagnosis can be resolved or if a updated PHQ9 is needed. Thank you Panel Management PATIENT: ( ) Call Patient ( ) Ask Patient to ( ) ( ) Call Relative ( ) Schedule Patient ( ) ( ) Call for Sponsorship Coordinator ( ) Follow up on Results ( ) Other: PROVIDER: ( ) Call Physician ( ) Call Pharmacist ( ) Call Lab ( ) Other: Special Instructions: Comments: Source: [facility] POWERCHART Document Id: [id number] Miscellaneous - Catracho Thornton P.A.-C. - 01/09/2016 9:46 AM CDT Results Notification Document Contains Addenda Addendum by HENNY PERRY LPN on January 09, 2016 10:09:56 CDT pt notified From: CATRACHO THORNTON P.A.-C. To: MCKENZIE Family Medicine Nurse Panda; Sent: 01/09/2016 09:46:23 CDT Show up: 01/09/2016 09:41:00 CDT Subject: Results Notification Please call patient and inform her the punch biopsy shows somthing called lichen planus. It is easily treatable and often can go away on its own. She can use a topical steroid cream such as hydrocortisone cream over the counter for itching. It is not cancerous nor does it become cancer. Results: Date Result Name Value 01/06/2016 09:25 Surg IV Accn-[place] [id number] 01/06/2016 09:25 Surg IV Addr-[place] See Comment 01/06/2016 09:25 Surg IV FnlDiag-[place] See Comment 01/06/2016 09:25 Surg IV Ref-[place] See Comment 01/06/2016 09:25 Surg IV SgnPath-[place] See Comment 01/06/2016 09:25 Surg IV Ts Desc-[place] See Comment [facility] Document Id: [id number] Electronically signed by Rolnad Cohen [facility] Workman [id number] at 01/16/2017 3:01 PM CDT Leilani - Jude Cardona LBrittaneyP.N. - 01/06/2016 8:32 AM CDT Ambulatory Vitals Height Weight Ambulatory Vitals Height Weight Entered On: 01/06/2016 8:34 CDT Performed On: 01/06/2016 8:32 CDT by JUDE CARDONA LPN Vitals/Ht/Wt Systolic Blood Pressure : 119 mmHg Diastolic Blood Pressure : 68 mmHg NIBP Mean : 85 mmHg BP Location : Left upper extremity Blood Pressure Cuff Size : Large Height : 157 cm(Converted to: 5 ft 2 inch(es), 62 inch(es)) JUDE CARDONA LPN - 01/06/2016 8:32 CDT 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 Space Planner Intake/History Adult Space Planner Intake/History Entered On: 01/06/2016 8:29 CDT Performed On: 01/06/2016 8:25 CDT by JUDE CARDONA LPN Intake Chief Complaint : Lesion back on neck Onset of Symptoms : 2 years Temperature Core : 36.9 DegC(Converted to: 98.4 DegF) Peripheral Pulse Rate : 78 /min Respiratory Rate : 16 /min Heart Rhythm : Regular Systolic Blood Pressure : 134 mmHg Diastolic Blood Pressure : 98 mmHg (>HHI) NIBP Mean : 110 mmHg BP Location : Left upper extremity Blood Pressure Cuff Size : Large SpO2 : 98 % Height : 157 cm(Converted to: 5 ft 2 inch(es), 62 inch(es)) JUDE CARDONA LPN - 01/06/2016 8:25 CDT General Info Languages : Afghan Is Patient Female and 13-50 no hysterectomy : Yes Status : Patient denies Are you ? : No JUDE CARDONA LPN - 01/06/2016 8:25 CDT Subjective Pain Symptoms : No JUDE CARDONA ROOMING HOUSE INSPECTOR - 01/06/2016 8:25 CDT Dependent Habits Exposure to Tobacco Smoke : Patient smokes Smoking Status : Current some day smoker Tobacco 2A : Yes Tobacco Use/Currently Using : Yes Tobacco Use/Last 30 Days : Yes Tobacco Use/Last 12 months : Yes Type : Cigarettes: Less than 20 per day Tobacco Use/Advised to Quit : Yes Alcohol Use : No JUDE CARDONA LPN - 01/06/2016 8:25 CDT Caffeine Use Grid Caffeine Use : Current Type : Coffee, Soft drinks Frequency : Occasionally JUDE CARDONA LPN - 01/06/2016 8:25 CDT Recreational Drug Use Grid Drug Use : None JUDE CARDONA LPN 01/06/2016 8:25 CDT Source: [facility] POWERCHART Document Id: [id number] CDT!40 documented in this encounter Plan of Treatment Scheduled Procedures Name Priority Associated Diagnoses Date/Time COLONOSCOPY Diarrhea documented as of this encounter Procedures Procedure Name Priority Date/Time Associated Diagnosis Comme [facility] SURGICAL PATHOLOGY Routine 01/06/2016 9:25 AM Res ults for this CDT procedure are i n the results section. documented in this encounter Results Pathology Anatpath Wet Tissue (01/06/2016 9:25 AM CDT) [facility] Time Signature HXSurg IV [id number] POWERCHART [facility] HXSurg IV See Comment POWERCHART [facility] Comment: RESULT: Eusebio Nathan HXSurg IV Addr-[place] See Comment POWERCHA RT Comment: [facility] [facility] [address] [place] [address] SLIDE DISPOSITION: HXSurg IV [facility] See Comment POWER CHART Comment: [id number] A1 A. Received in formalin labeled with the patient's name and and lab eled as right nape of neck is a 0.2 x 0.1 cm ovoid skin punch biops y excised to a depth of 0.3 cm. ??No identifiable lesion is noted on the skin surface. ??The specimen is submitted in toto in pallavi danielle A1. Part A: ??right nape of neck 1 right nape of neck XRSR [facility] See [facility] POWER CHART Comment: A. ??Skin, right neck, punch biopsy: ??L jacqueline irene. Participated in interpretation: Dr. Blane Shepherd. Pager: [phone]. As the signing pathologist, I verify fidelina t I have examined all relevant slides/materials for the specim en(s) and rendered or confirmed the diagnosis. HXSurg IV [facility] See Comment POWER CHART Comment: RESULT: 01/08/2016 15:55 Interpreted by: Lucas Lucia M.D. Report electronically signed by Lucas grey M.D. Transcribed by: amelia 01/08/2016 15:17:34 Test Performed by: [place] [address] Metal Painter: Rubio Marshall II, M.D., Ph.D. Specimen (Source) Anatomical Collection Method Collection Time Re ceived Time Location / / Volume Laterality Tissue 01/06/2016 9:25 AM CDT Catracho Bundy P.A.-C. LAB SURG PATH ORDERABLES Performing Organization Address City/State/ZIP Code Phon e Number POWERCHART documented in this encounter Visit Diagnoses Not on filedocumented in this encounter Additional Health Concerns Assessment Noted Time PHQ-9 Depression Total Score: 11 12/13/2014 9:50 AM CD T documented as of this encounter
--- OUTSIDE RECORDS SUMMARY | 2022-06-29 09:32 | XMS_ITS | Encounter Summary ---
:1985 Author Organization [facility] Address [address] [place] [address] Care Team Providers Name Role Phone Unavailable Primary Care Provider Unavailable Encounter Details Date Type Department Care Team Description 11/05/2016 Hospital Encounter HX [facility] ENT Venu Nguyen M.D. [address] [place], [place] [phone] (Wo rk) Social History [...] How often do you attend christianity or orthodox More than 4 time s [...] Sign Reading Time Taken Comments Blood Pressure 124/76 11/05/2016 12:26 PM CDT Pulse 104 11/05/2016 12:26 PM CDT Temperature - - Respiratory Rate 16 11/05/2016 12:26 PM CDT Oxygen Saturation - - Inhaled Oxygen Concentration - - Weight - - Height 157 cm (5' 1.81) 11/05/2016 12:26 PM CDT Body Mass Index - - documented in this encounter Medications at Time of Discharge Medication Sig Dispensed Refills Start Date End Date ACETAMINOPHEN/DEXTROMETHORPHAN Take by mouth. 0 0 10/29/2016 07/29/2017 (ACETAMINOPHEN-DM ORAL) documented as of this encounter Consult Notes Venu Nguyen M.D. - 11/05/2016 12:13 PM CDT [id number] Ms. Cooley is a pleasant 30-year-old accompanied by her 8-year-old son, Edy (also seeing me today). She is known to me from previously bringing Edy in. The reason for visit is strep 4 times in past year, consult at the request of SUNSHINE Nathan. Ms. Cooley reports a 3-year history of frequent sore throats and strep throat. She reports multiple positive tests confirmed on chart review (, , , . Prior to that, no positive strep tests looking back to 2011). She reports she gets approximately 2 sore throats per month typically lasting 1 to 2 days, severity 3 to 4 out of 10. The previously noted strep positive episodes will last 1 to 2 weeks and are horrible. She will have associated sensation of dyspnea. PAST MEDICAL/SURGICAL HISTORY Migraines. She wondered if these might be related to sinus disease. Chart review indicates an MRI 2014 indicating small retention cyst left maxillary sinus, and she feels this was a typical time for her headaches. She recently found out she is . Obstructive sleep apnea--not using her CPAP. ADULT NEW PATIENT QUESTIONNAIRE: The NPQ is filled out by the patient and is reviewed including 10-system review of systems, past medical history, surgical history, social history, and family history. SOCIAL HISTORY Smokes less than a pack per week. 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 PHYSICAL EXAMINATION GENERAL: Appears well, no distress. VITAL SIGNS: Noted. Recent BMI (8 days ago) 60.61. OTOSCOPIC: Normal, healthy mobile TMs. NOSE: Patent, healthy mucosa. ORAL: Normal. OROPHARYNX: Tonsils 3+, not inflamed. MIRROR EXAM: Nasopharynx/Hypopharynx/Larynx: Not tolerated due to gag reflex. VOICE: Normal. NECK: Full, no lymphadenopathy, no masses. THYROID: Not palpably enlarged. SALIVARY GLANDS: Normal. IMPRESSION/REPORT/PLAN 1. Recurrent tonsillitis including strep approximately once or twice a year for the last 3 years. I cannot be certain she is not a strep carrier. We discussed the option of a strep test when she is asymptomatic. We did not obtain this prior to her leaving with several discussions including that regarding her son's visit. We discussed the option of tonsillectomy. She is a candidate for tonsillectomy (prior peritonsillar abscess addressed by Dr. Zavala March 05, 2015, note reviewed). She is currently , however. Wediscussed the risks of tonsillectomy including postoperative pain, and most importantly the risk of b leeding 2% to 4%, which can be severe and life-threatening. Given her BMI above 60, I am not sure proceeding in [place] would even be an option. She will observe her symptoms during the next year until her is done and further consider whether tonsillectomy would be the best option for her at that time. She is comfortable with this plan. She is asymptomatic. We will try and get her in for a strep test to check her carrier status. 2. Obstructive sleep apnea, untreated. Strongly urged she follow up with her primary provider if sheis unable to get back on her CPAP. Discussed long-term health risks of untreated sleep apnea. 3. Body mass index 60-plus. Venu Nguyen M.D./robb cc: Blaire Thornton P.A.-C. [facility] in [address] [place] [address] Electronically Signed By: VENU NGUYEN MD On: 12/01/2016 01:38 PM Source: [facility] MHSDOLBEYNONRADSYS Document Id: [id number] documented in this encounter Miscellaneous Notes Miscellaneous - Madhavi Addison R.N. 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 Entered On: 11/05/2016 12:30 CDT Performed On: 11/05/2016 12:26 CDT by MADHAVI ADDISON welding manager Chief Complaint : chronic sore throat, large tonsils, sinus headaches/ migraines Temperature Core : 36.6 DegC(Converted to: 97.9 DegF) Peripheral Pulse Rate : 104 /min (HI) Respiratory Rate : 16 /min Heart Rhythm : Regular Systolic Blood Pressure : 124 mmHg Diastolic Blood Pressure : 76 mmHg NIBP Mean : 92 mmHg BP Location : Left upper extremity Blood Pressure Cuff Size : Large SpO2 : 96 % Height : 157 cm(Converted to: 5 ft 2 inch(es), 62 inch(es)) MADHAVI ADDISON RN - 11/05/2016 12:26 CDT General Info Languages : Lebanese Is Patient Female and 13-50 no hysterectomy : Yes Status : Confirmed positive Are you ? : No MADHAVI ADDISON RN - 11/05/2016 12:26 CDT Subjective Pain Symptoms : Yes MADHAVI ADDISON RN - 11/05/2016 12:26 CDT Pain Scale Pain Scale Verbal 0-10 : Open MADHAVI ADDISON RN - 11/05/2016 12:26 CDT Pain Pain Assessment Grid Pain 1 Location : Throat MADHAVI ADDISON RN - 11/05/2016 12:26 CDT Dependent Habits Exposure to Tobacco Smoke : Patient smokes Smoking Status : Current every day smoker Tobacco 2A : Yes Tobacco Use/Currently Using : Yes Tobacco Use/Last 30 Days : Yes Tobacco Use/Last 12 months : Yes Type : Cigarettes: Less than 20 per day Tobacco Use/Advised to Quit : Yes MADHAVI ADDISON RN - 11/05/2016 12:26 CDT Caffeine Use Grid Caffeine Use : Current Type : Coffee, Soft drinks Frequency : Occasionally MADHAVI ADDISON RN - 11/05/2016 12:26 CDT Recreational Drug Use Grid Drug Use : None MADHAVI ADDISON RN - 11/05/2016 12:26 CDT [facility] Document Id: [id number] CDT!44 documented in this encounter Plan of Treatment Scheduled Procedures Name Priority Associated Diagnoses Date/Time COLONOSCOPY Diarrhea documented as of this encounter Procedures Procedure Name Priority Date/Time Associated Diagnosis Comme nts RAPID STREP A Routine 11/16/2016 10:12 AM Results for this SCREEN CDT procedure are i n the results section. documented in this encounter Results Rapid Strep A Screen (11/16/2016 10:12 AM CDT) [facility] Method Time Signature HXStrep A POWERCHART Screen Rapid HXFinal Negative for POWERCHART Strep Group A by rapid screen. HXFinal Culture POWERCHART confirmation to follow. Specimen (Source) Anatomical Collection Method Collection Time Re ceived Time Location / / Volume Laterality Throat 11/16/2016 10:12 AM CDT Venu Nguyen M.D. LAB MICROBIOLOGY - GENERAL O RDERABLES Performing Organization Address City/State/ZIP Code Phon e Number POWERCHART documented in this encounter Visit Diagnoses Not on filedocumented in this encounter Additional Health Concerns Assessment Noted Time PHQ-9 Depression Total Score: 11 12/13/2014 9:50 AM CD T documented as of this encounter
--- OUTSIDE RECORDS SUMMARY | 2022-06-29 09:32 | XMS_ITS | Encounter Summary ---
:1985 Author Organization [facility] Address [address] [place] [address] Care Team Providers Name Role Phone Unavailable Primary Care Provider Unavailable Encounter Details Date Type Department Care Team Description 12/09/2016 Hospital Encounter HX [facility] Rabia Melchor A PRN, C.N.P. [address] [place], [place] [phone] (Wo rk) Social History [...] How often do you attend sabianist or hindu More than 4 time s [...] Sign Reading Time Taken Comments Blood Pressure 112/70 12/09/2016 8:33 AM CDT Pulse - - Temperature - - Respiratory Rate - - Oxygen Saturation - - Inhaled Oxygen Concentration - - Weight 149 kg (328 lb 0.7 oz) 12/09/2016 8:33 AM CDT Height 158 cm (5' 2.21) 12/09/2016 8:33 AM CDT Body Mass Index 59.61 12/09/2016 8:33 AM CDT documented in this encounter Medications at Time of Discharge Medication Sig Dispensed Refills Start Date End Date ACETAMINOPHEN/DEXTROMETHORP Take by mouth. 0 04/201707/29/2017 SANDOVAL (ACETAMINOPHEN-DM ORAL) PNV NO.95/FERROUS FUM/FOLIC Take by mouth 0 11/0607/29/2017 AC ( MULTIVITAMINS daily. ORAL) documented as of this encounter Progress Notes Rabia Reaves R.N. - 12/09/2016 8:49 AM CDT new ob visit CHIEF COMPLAINT/REASON FOR VISIT New ob HISTORY OF PRESENT ILLNESS: This patient is a 30 y/o that presents for a new ob visit. + daily nausea, no vomiting, no vaginal bleeding, no cramping LMP- unsure, around 10/03/2016 NGA 06-29-2017 based on 9 week sono no history of STDs no history of abnormal pap smears. Last pap 2012, was NIL MEDICATIONS acetaminophen: PO multivitamin, : PO,Daily ALLERGIES penicillins PAST MEDICAL/SURGICAL HISTORY PAST MEDICAL HISTORY Headache Migraine Dysthymic Disorder Headache Abuse Tobacco Smoking NOS Body Mass Index (BMI) 50.0-59.9 Adult SURGICAL Pap smear: 01/25/13 Pap smear: 01/25/13 OBGYN HISTORY Complications with Previous Pregnancies 1. gestational HTN, induction due to HTN, discovered low ANA LUISA. maternal fever in labor. baby needed antibiotics and oxygen. G1: 1 FT Date: 01-03-2008. Location [place]. weight 7#13oz Complications high blood pressure Delivery complications fever, baby had oxygen/antibiotics (?chorioamnionitis). G2: current No history of DVT/PE No bleeding complications during delivery No history of shortened cervix No history of PTL No history of PTD No history of placenta abnormalities + history of pre-eclampsia or gestational hypertension No history of GDM or Type II DM No history of depression SOCIAL HISTORY Date Time: 12/09/2016 08:33 Tobacco: Smoking Status: Current some day smoker, 1-2 cigs/week! Exposure: Patient smokes Alcohol: Use: No Recreational Drugs: Use: None Type: No Results Found Sexual history Brendon, . 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 She has no history of abusive relationships. Transportation: no issues Social Service/Public Health none is wanting to try to breast feed her baby. no history of eating disorder. family weight problem. Grandma and aunts have had gastric bypass, Puneet is interested in this after FAMILY HISTORY Mother: Hypothyroidism Father: Myocardial infarction Sister: Cystic fibrosis Grandmother (paternal, ): [place] - Lung cancer Grandfather (maternal): Cancer Grandmother (maternal): Cancer SYSTEMS REVIEW GENERAL: no fevers, sweats EENT: no blurred vision, double vision, sinus problems, difficulty swallowing, mouth sores, diminished hearing, ringing in ears, enlarged glands PULMONARY: no short of breath, cough, wheezing CARDIAC: no chest pain, chest pressure, rapid beating, irregular beating, dependent edema, pain in calves, shortness of breath with exertion BREASTS: no nipple discharge, breast lumps, breast tenderness, no other changes GI: negative REPRODUCTIVE: see above, no vaginal discharge or pelvic pain : no burning/pain with urination, no urinary incontinence MUSCULOSKELETAL: no joint or muscle problems SKIN: no skin rashes, skin sores, change in moles NEURO: no significant headaches, numbness or weakness ENDOCRINE: no excessive thirst, no excessive bruising. PSYCH: no depression or anxiety Vitals BLOOD PRESSURE Systolic Blood Pressure: 112 Diastolic Blood Pressure: 70 MEASUREMENTS Height: 158 Actual Weight: 148.8 Body Mass Index: 59.61 PHYSICAL EXAMINATION Well nourished, well developed female in NAD. Neuro: Intact Eyes: MAURY ENT: Intact Neck: no thyromegaly, no lymph adenopathy Lungs: clear, equal to auscultation bilaterally, no wheezes, rales, rhonchi. No accessary muscles ofrespiration noted. Heart: Regular rate and rhythm. No murmurs, gallops or rubs noted Abdomen: Non-tender to palpation. No hepato-splenomegaly. No mass. Normal bowel sounds in all 4 quadrants. Sky Line Yarder: Normal external genitalia. BUS normal Urethra normal Bladder non tender, not enlarged Vagina no abnormal discharge. Mucosa moist and well rugated. Anus appears normal. Extremities: No neurovascular compromise. No cyanosis, clubbing or edema. No edema, non-tender IMPRESSION/REPORT/PLAN 1) New ob visit, Discussed materials in the new OB folder 2) new ob labs, UA/UC, A1C, pap smear, G/C 3) Discussed wt. gain and exercise, caffeine, cat litter, choosing a baby doctor, toxic substances. 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 Genetic testing and screening options discussed, booklet given. She is not interested in meeting with a genetic specialist or partner screening at this time. 6) BMI 59. planning delivery at [facility]. will plan for shared care. undecided on where anatomy scan ultrasound will be, here or at [facility]. 7) smoker, quitting. down to 1-2 cigs/week Referrals: _ Electronically Signed By: RABIA REAVES CNP, RN On: 12/09/2016 10:02 AM Modified by and Electronically Signed by: RABIA REAVES CNP RN On: 12/09/2016 10:02 AM Source: [facility] POWERCHART Document Id: [id number] documented in this encounter Nursing Notes Dawna Madera L.P.N. - 12/09/2016 8:33 AM CDT Antepartum Exam, Initial Document Has Been Updated Antepartum Exam, Initial Entered On: 12/09/2016 8:39 CDT Performed On: 12/09/2016 8:33 CDT by DAWNA MADERA L.P.N. Vitals/Ht/Wt Systolic Blood Pressure : 112 mmHg Diastolic Blood Pressure : 70 mmHg Blood Pressure Cuff Size : Large Blood Pressure Location : Left upper extremity LMP Date : 10/03/2016 Pain Symptoms : No Actual Weight : 148.8 kg(Converted to: 328 lb 1 oz, 328.048 lb) Height : 158 cm(Converted to: 5 ft 2 inch(es), 62 inch(es)) Body Mass Index : 59.61 kg/m2 DAWNA MADERA L.P.NBrittaney - 12/09/2016 8:33 CDT PHQ-9 Little interest or pleasure in doing things : Not at all Feeling down, depressed, or hopeless : Several days Trouble falling or staying asleep, or sleeping too much : Several days Feeling tired or having little energy : More than half the days Poor appetite or overeating : Not at all Feeling bad about yourself or that you are a failure : Not at all Trouble concentrating on things : Not at all Moving or speaking slowly; restless or fidgety : Not at all Thoughts that you would be better off /hurting self : Not at all PHQ-9 Calculated Score : 4 Problems make work, home, or dealing with others : Not difficult at all JOSEPH DAWNA TinajeroP.N. - 12/09/2016 8:33 CDT Obstetrical History History (As Of: 12/09/2016 09:09:45 CDT) - 2, Para Fullterm - , Para - , Abortions - , Para Living - 1 Delivery/Outcome Date: 01/03/2008 Delivery Method: Vaginal ; Gender: Male ; Outcome: Live Add'l Information Planned/Unplanned : Planned Wanted : Yes Desires to Continue : Yes On Hormonal Contraception Within 2 Months of LMP : No at Conception : No RABIA REAVES CNP, RN - 12/09/2016 9:05 CDT Problems & Procedures (As Of: 12/09/2016 09:09:45 CDT) Problems(Active) Abuse Tobacco Smoking NOS (ICD-9-CM :305.1 ) Name of Problem: Abuse Tobacco Smoking NOS ; Recorder: NICHOLE ADDISON; Confirmation: Confirmed ; Classification: Medical ; Code: 305.1 ; Contributor System: [employer] ; Last Updated: 12/12/2014 9:21 CDT ; Life Cycle Date: 12/12/2014 ; Life Cycle Status: Active ; Responsible Provider: NICHOLE ADDISON; Vocabulary: ICD-9-CM Body Mass Index (BMI) 50.0-59.9 Adult (ICD-10-CM :Z68.43 ) Name of Problem: Body Mass Index (BMI) 50.0-59.9 Adult ; Recorder: RABIA REAVES CNP RN; Confirmation: Confirmed ; Classification: Medical ; Code: Z68.43 ; Contributor System: [employer] ; Last Updated: 11/06/2016 12:02 CDT ; Life Cycle Date: 11/06/2016 ; Life Cycle Status: Active ; Responsible Provider: RABIA REAVES CNP, RN; Vocabulary: ICD-10-CM Dysthymic Disorder (ICD-9-CM :300.4 ) Name of Problem: Dysthymic Disorder ; Onset Date: 08/01/2010 ;Confirmation: Confirmed ; Classification: Medical ; Code: 300.4 ; Contributor System: [employer] ; Last Updated: 12/12/2014 9:11 CDT ; Life Cycle Status: Active ; Vocabulary: ICD-9-CM ; Comments: - Dysthymic disorder Headache (ICD-9-CM :784.0 ) Name of Problem: Headache ; Onset Date: 10/24/2007 ; Confirmation: Confirmed ; Classification: Medical ; Code: 784.0 ; Contributor System: [employer] ; Last Updated: 12/12/2014 9:11 CDT ; Life Cycle Status: Active ; Vocabulary: ICD-9-CM ; Comments: - Headache Headache Migraine (ICD-9-CM :346.90 ) Name of Problem: Headache Migraine ; Onset Date: 01/21/2012 ; Recorder: RABIA HOLMAN MD; Confirmation: Confirmed ; Classification: Medical ; Code: 346.90 ; Contributor System: Power[employer] ; Last Updated: 12/12/2014 9:11 CDT ; Life Cycle Status: Active; Responsible Provider: RABIA HOLMAN MD; Vocabulary: ICD-9-CM (SNOMED CT :645677775 ) Name of Problem: ; Onset Date: 10/03/2016 ; Recorder: DAWNA MADERA L.P.N.; Confirmation: Confirmed ; Classification: Medical ; Code: 282706257 ; Last Updated: 12/09/2016 8:32 CDT ; Life Cycle Status: Active ; Responsible Provider: DAWNA MADERA L.P.N.; Vocabulary: SNOMED CT Diagnoses(Active) Date: 12/09/2016 ; Confirmation: Confirmed ; Clinical Dx: ; Classification: Medical ; Code: SNOMED CT ; Probability: 0 ; Diagnosis Code: 482034843 - Procedure History (As Of: 12/09/2016 09:09:45 CDT) Procedure Dt/Tm: 01/25/2013 00:00:00 CDT ; Anesthesia Minutes: 0 ; Procedure Name: Pap smear ; Procedure Minutes: 0 ; Clinical Service: Non-Specified ; Last Reviewed Dt/Tm: 01/25/2013 00:00:00 CDT Procedure Dt/Tm: 01/25/2013 00:00:00 CDT ; Anesthesia Minutes: 0 ; Procedure Name: Pap smear ; Procedure Minutes: 0 ; Clinical Service: Non-Specified ; Last Reviewed Dt/Tm: 01/25/2013 00:00:00 CDT Histories (As Of : 12/09/2016 09:09:45 CDT) - Past Medical History Headache Migraine Name of Problem: Headache Migraine ; Onset Date: 01/21/2012 ; Recorder: RABIA HOLMAN MD; Confirmation: Confirmed ; Classification: Medical ; Code: 346.90 ; Contributor System: [employer] ; Last Updated: 12/12/2014 9:11 CDT ; Life Cycle Status: Active ; Responsible Provider: RABIA HOLMAN MD; Vocabulary: ICD-9-CM Headache Name of Problem: Headache ; Onset Date: 10/24/2007 ; Confirmation: Confirmed ; Classification: Medical ; Code: 784.0 ; Contributor System: [employer] ; Last Updated: 12/12/2014 9:11 CDT ; LifeCycle Status: Active ; Vocabulary: ICD-9-CM ; Comments: - Headache Dysthymic Disorder Name of Problem: Dysthymic Disorder ; Onset Date: 08/01/2010 ; Confirmation: Confirmed ; Classification: Medical ; Code: 300.4 ; Contributor System: [employer] ; Last Updated: 12/12/2014 9:11 CDT ; Life Cycle Status: Active ; Vocabulary: ICD-9-CM ; Comments: - Dysthymic disorder Name of Problem: ; Recorder: NICHOLE ADDISON; Confirmation: Confirmed ; Classification: Medical ; Code: 780550715 ; Last Updated: 12/12/2014 9:12 CDT ; Life Cycle Date: Unknown 01/03/2008 ; Life Cycle Status: Resolved ; Vocabulary: SNOMED CT ; Resolved Date: Unknown 01/03/2008 ; R esolved Age: 22 years Abuse Tobacco Smoking NOS Name of Problem: Abuse Tobacco Smoking NOS ; Recorder: NICHOLE ADDISON; Confirmation: Confirmed ; Classification: Medical ; Code: 305.1 ; Contributor System: [employer] ; Last Updated: 12/12/2014 9:21 CDT ; Life Cycle Date: 12/12/2014 ; Life Cycle Status: Active ; Responsible Provider: NICHOLE ADDISON; Vocabulary: ICD-9-CM Family History (As Of: 12/09/2016 09:09:45 CDT) Brother: Relation: Brother ; Gender: Male ; Nomenclature: Anesthesia ; Value: Negative Nomenclature: Bleeding disorder ; Value: Negative Nomenclature: Hearing loss ; Value: Negative Mother: Relation: Mother ; Gender: Female ; Nomenclature: Macular disease ; Value: Negative Nomenclature: Glaucoma ; Value: Negative Nomenclature: Diabetic retinopathy ; Value: Negative Nomenclature: Cataract ; Value: Negative Nomenclature: Blindness AND/OR vision impairment level ; Value: Negative Nomenclature: Hypothyroidism ; Value: Positive Nomenclature: Anesthesia ; Value: Negative Nomenclature: Bleeding disorder ; Value: Negative Nomenclature: Hearing loss ; Value: Negative Father: Relation: Father ; Gender: Male ; Nomenclature: Myocardial infarction ; Condition Onset Age: 47 ; Value: Positive Nomenclature: Macular disease ; Value: Negative Nomenclature: Glaucoma ; Value: Negative Nomenclature: Diabetic retinopathy ; Value: Negative Nomenclature: Cataract ; Value: Negative Nomenclature: Blindness AND/OR vision impairment level ; Value: Negative Nomenclature: Anesthesia ; Value: Negative Nomenclature: Bleeding disorder ; Value: Negative Nomenclature: Hearing loss ; Value: Negative Sister: Relation: Sister ; Gender: Female ; Nomenclature: Cystic fibrosis ; Value: Positive Nomenclature: Anesthesia ; Value: Negative Nomenclature: Bleeding disorder ; Value: Negative Nomenclature: Hearing loss ; Value: Negative Grandmother: paternal Full Name: paternal ; Relation: Grandmother ; ; Age at : 65 Years Nomenclature: CA - Lung cancer ; Comments: 03/13/2014 13:47 - JORY COPPOLA F SCOW HAND brain cancer ; Value: Positive Grandfather: maternal Full Name: maternal ; Relation: Grandfather ; Nomenclature: Cancer ; Comments: 03/13/2014 13:47 - PLEINSTEPHANIEY F SCOW HAND larynx ; Value: Positive Grandmother: maternal Full Name: maternal ; Relation: Grandmother ; Nomenclature: Cancer ; Comments: 03/13/2014 13:47 - PLEIN JORY F SCOW HAND ear ; Value: Positive Anesth/Transfusion Transfusion Acceptable in Emergency : Yes RABIA REAVES CNP, RN - 12/09/2016 9:05 CDT Medication History Medication List (As Of: 12/09/2016 09:09:45 CDT) Home Meds acetaminophen : acetaminophen ; Status: Documented ; Ordered As Mnemonic: Tylenol ; Simple Display Line: PO ; Catalog Code: acetaminophen ; Order Dt/Tm: 10/29/2016 09:42:48 multivitamin, : multivitamin, ; Status: Documented ; Ordered As Mnemonic: PrenatalMultivitamins ; Simple Display Line: PO, Daily ; Catalog Code: multivitamin, ; Order Dt/Tm:11/06/2016 09:07:52 Allergy (As Of: 12/09/2016 09:09:45 CDT) Allergies (Active) penicillins Estimated Onset Date: Unspecified ; Created By: GLEN ACOSTA; Reaction Status: Active ;Category: Drug ; Substance: penicillins ; Type: Allergy ; Updated By: GLEN ACOSTA; Reviewed Date: 12/09/2016 8:26 CDT ID Screen Drug Resistant Organism : No RABIA REAVES CNP, RN - 12/09/2016 9:05 CDT TB Symptoms Grid Bloody Sputum : No Fatigue : No Fever : No Loss of Appetite : No Night Sweats : No Persistent Cough Greater Than 3 Weeks : No Weight Loss : No RABIA REAVES CNP, RN - 12/09/2016 9:05 CDT Alcohol and Drug Use : No Employee of Institutional Living Environment : No Health Care Employee : No History of Exposure to TB : No History of Positive Chest X-Ray for TB : No History of Positive TB Skin Test : No Homeless : No Known Immunosuppression : No Recent Immigrant : No Resident of Institutional Living Environment : No RABIA REAVES CNP, RN - 12/09/2016 9:05 CDT Dependent Habits Exposure to Tobacco Smoke : Patient smokes Smoking Status : Current some day smoker Tobacco 2A : Yes Tobacco Use/Currently Using : No Tobacco Use/Last 30 Days : Yes Tobacco Use/Last 12 months : Yes Type : Other: occasional/not daily Alcohol Use : No DAWNA MADERAPBrittaneyNBrittaney - 12/09/2016 8:33 CDT Caffeine Use Grid Caffeine Use : Current Type : Coffee, Soft drinks Frequency : Occasionally DAWNA MADERAPRoverto - 12/09/2016 8:33 CDT Recreational Drug Use Grid Drug Use : None DAWNA MADERAPRoverto - 12/09/2016 8:33 CDT Psychosocial Domestic Abuse Concerns : None Behavioral Health Screen/Safety Assmt : No Roman Catholic Preference : No qualifying data available. DAWNA MADERA L.P.N. - 12/09/2016 8:33 CDT Genetic/Infection Screen Infection History : History of Varicella or Immunized for Varicella RABIA REAVES CNP, SHRUTHI - 12/09/2016 9:05 CDT Ethnic Background Grid : Self, Baby's father RABIA REAVES CNP, RN - 12/09/2016 9:05 CDT Cystic Fibrosis : Other relative (Comment: maternal half-sister [RABIA REAVES CNP, SHRUTHI - 12/09/2016 9:05 CDT] ) RABIA REAVES CNP, RN - 12/09/2016 9:05 CDT Antepartum Note Antepartum Note : nausea daily. feet are swollen. will try OTC compression stockings while at work. RABIA GONZALES CNP, SHRUTHI - 12/09/2016 10:03 CDT Education Individuals Taught : Patient Barriers to Learning : None evident Teaching Method : Explanation, Printed materials RABIA REAVES CNP, RN - 12/09/2016 10:03 CDT Alcohol : Verbalizes understanding Anxiety/Depression Symptoms : Verbalizes understanding Childbirth Classes : Verbalizes understanding Domestic Violence : Verbalizes understanding Environmental/Work Hazards : Verbalizes understanding Exercise : Verbalizes understanding Expected Course of Care : Verbalizes understanding HIV Testing : Verbalizes understanding Influenza Vaccine : Verbalizes understanding Medication Use : Verbalizes understanding Nutrition Counseling : Verbalizes understanding Recreational Drugs : Verbalizes understanding Risk Factors Identified : Verbalizes understanding Routine Tests : Verbalizes understanding Seat Belt Use : Verbalizes understanding Sexual Activity : Verbalizes understanding Smoking Counseling : Verbalizes understanding Tobacco Assessment : Verbalizes understanding Toxoplasmosis Precautions : Verbalizes understanding RABIA REAVES CNP, SHRUTHI - 12/09/2016 10:03 CDT Source: [facility] POWERCHART Document Id: [id number] documented in this encounter Miscellaneous Notes Miscellaneous - Rabia Reaves R.N., [facility]- - 05/20/2017 9:10 AM CDT RE: From: RABIA REAVES R.N. [facility] To: PUNEET CLAYTON Sent: 05/20/2017 09:10:24 CDT Subject: RE: This is hard to determine online, Puneet. It may be normal. Many women having pelvic aching, low back pain, trouble rolling over or getting up out of bed, etc. toward the end of their pregnancies, especially when they've had babies before! But, pelvic pressure could be a sign of labor, or other things. If rest, tylenol, warm pack or warm bath, stretches, yoga, proper body mechanics aren't helping, or if you are worried...I suggest you come in to the clinic to talk more about it here! I hope that helps! Rabia From: PUNEET CLAYTON To: RABIA REAVES R.N. [facility] Sent: 05/19/2017 4:41:33 PM ([facility]-06:00) Central Time ([place] & [place]) Subject: RE: Should it hurt to walk though and when I move? From: RABIA REAVES R.N. [facility] To: PUNEET CLAYTON Sent: 05/19/2017 16:18:07 CDT Subject: RE: As you get closer to the end of the , it is not uncommon to have increased pelvic or vaginal pressure. If you have noticed a significant change in how you feel though, you should come in to beseen. From: PUNEET CLAYTON To: RABIA REAVES R.N. [facility] Sent: 05/19/2017 12:08:54 PM ([facility]-06:00) Central Time ([place] & [place]) Subject: RE: Hi there I just had a question.. I am feeling a lot of pressure in my vagina and it hurts to walk sometimes and if I love the wrong way it hurts is this normal? Thank you, Puneet From: RABIA REAVES CNP, RN To: PUNEET CLAYTON Sent: 12/15/2016 10:05:23 CDT Hi Puneet, The antibiotic that I sent for you is the correct one according to the urine culture results. Pleasetake the prescription as prescribed. We will recheck a urine culture at your next visit. Please let me know if you have any questions. have a good day! Rabia Source: [facility] POWERCHART Document Id: [id number] Miscellaneous - [facility]aves R.N., [facility] - 05/19/2017 4:18 PM CDT RE: From: RABIA REAVES R.N. [facility] To: PUNEET CLAYTON Sent: 05/19/2017 16:18:07 CDT Subject: RE: As you get closer to the end of the , it is not uncommon to have increased pelvic or vaginal pressure. If you have noticed a significant change in how you feel though, you should come in to beseen. From: PUNEET CLAYTON To: RABIA REAVES R.N. [facility] Sent: 05/19/2017 12:08:54 PM ([facility]-06:00) Central Time ([place] & [place]) Subject: RE: Hi there I just had a question.. I am feeling a lot of pressure in my vagina and it hurts to walk sometimes and if I love the wrong way it hurts is this normal? Thank you, Puneet From: RABIA REAVES CNP, RN To: PUNEET CLAYTON Sent: 12/15/2016 10:05:23 CDT Hi Puneet, The antibiotic that I sent for you is the correct one according to the urine culture results. Pleasetake the prescription as prescribed. We will recheck a urine culture at your next visit. Please let me know if you have any questions. have a good day! Rabia [facility] Document Id: [id number] Miscellaneous - Rabia Reaves R.N. - 12/15/2016 10:05 AM CDT From: RABIA REAVES CNP, RN To: PUNEET CLAYTON Sent: 12/15/2016 10:05:23 CDT Quinn Medina, The antibiotic that I sent for you is the correct one according to the urine culture results. Pleasetake the prescription as prescribed. We will recheck a urine culture at your next visit. Please let me know if you have any questions. have a good day! Rabia Source: [employer] Document Id: [id number] Electronically signed by [facility] [employer] [id number] at 02/02/2017 12:38 PM CDT [place]il[place] - Rabia Reaves R.N. - 12/11/2016 3:45 PM CDT From: RABIA REAVES CNP, RN To: PUNEET CLAYTON Sent: 12/11/2016 15:45:12 CDT Here are the results of your recent labs. Please let me know if you have any questions. have a great day! Rabia Results: Date Result Name Ind Value Ref Range 12/09/2016 10:15 ABO/Rh A NEG 12/09/2016 10:15 ABSC Gel Negative ABSC 12/09/2016 10:15 Hgb A1c 5.4 % A1C ( - <=5.6) 12/09/2016 10:15 Hgb 13.7 g/dL (12.0 - 15.5) 12/09/2016 10:15 Hct 41.4 % (34.9 - 44.5) 12/09/2016 10:15 WBC 7.7 x10(9)/L (3.5 - 10.5) 12/09/2016 10:15 RBC 4.88 x10(12)/L (3.90 - 5.03) 12/09/2016 10:15 MCV 84.8 fL (81.6 - 98.3) 12/09/2016 10:15 RDW 13.3 % (11.9 - 15.5) 12/09/2016 10:15 Platelet 231 x10(9)/L (150 - 450) 12/09/2016 10:15 Syphilis IgG-[place] Negative (Negative - ) 12/09/2016 10:15 HIV 1/2 Ab and Ag Scrn-[place] Negative (Negative - ) 12/09/2016 10:15 Rubella IgG-[place] Equivocal 12/09/2016 10:15 Rubella IgG Ab Index-[place] 0.9 12/09/2016 10:15 Hep Bs Ag-[place] Negative (Negative - ) 12/09/2016 09:45 C trach Amp Src-[place] vagina 12/09/2016 09:45 C trach Amp RNA-[place] Negative (Negative - ) 12/09/2016 09:45 N gonor Amp DNA-[place] Negative (Negative - ) 12/09/2016 09:45 N gonor Amp Src-[place] vagina 12/09/2016 09:45 UA Color Yellow (Colorless - ) 12/09/2016 09:45 UA Clarity (*) Slightly Cloudy (Clear - ) 12/09/2016 09:45 UA Spec Grav 1.021 12/09/2016 09:45 UA pH 5.5 (<5.0 - ) 12/09/2016 09:45 UA Protein Trace mg/dL (Negative - ) 12/09/2016 09:45 UA Glucose Negative mg/dL (Negative - ) 12/09/2016 09:45 UA Ketones Negative mg/dL (Negative - ) 12/09/2016 09:45 UA Bili Negative (Negative - ) 12/09/2016 09:45 UA Urobilinogen 0.2 mg/dL (0.2 - ) 12/09/2016 09:45 UA Blood Negative (Negative - ) 12/09/2016 09:45 UA Nitrite (*) Positive (Negative - ) 12/09/2016 09:45 UA Leuk Est (*) Large (Negative - ) 12/09/2016 09:45 UR WBC 4-10 /HPF (None Seen - ) 12/09/2016 09:45 UR RBC None Seen /HPF (None Seen - ) 12/09/2016 09:45 UR Squamous Epi Cells (*) 4-10 /HPF (None Seen - ) 12/09/2016 09:45 UR Bacteria (*) Present (None Seen - ) 12/09/2016 09:45 UR Mucous (*) Present (None Seen - ) [facility] Document Id: [id number] Electronically signed by Conversion, [facility] Retort Load Expediter [id number] at 02/02/2017 12:38 PM CDT Miscellaneous - Rabia Reaves R.N. - 12/11/2016 1:15 PM CDT Normal Results Letter December 11, 2016 PUNEET CLAYTON [address] [facility] [id number] Dear PUNEET CLAYTON, Your Pap was normal. Your next pap is due in 3 yrs. Please contact me if you have any questions. Result Name Current Result GUIDANCE CONSULTANT Cytology 12/09/2016 Sincerely, RABIA REAVES [address] [place] [address] Electronic Signature Electronically Signed By: RABIA REAVES CNP, RN On: December 11, 2016 This document has images extracted. Source: [facility] Agolo Document Id: [id number] Miscellaneous - Rabia Reaves, R.N. - 12/09/2016 10:04 AM CDT Ambulatory Patient Summary [facility] [address], [address] [place], [place] [id number] Visit Information Name: FORREST PUNEET ALVARADO [facility] Number: [id number] Current Date: 12/09/2016 10:04:46 Physicians Attending Provider: RABIA REAVES CNP, wire photo operator Provider: CATRACHO NAZARIO PA-C PUNEET CLAYTON has [...] Take Indications/Special Instructions/Comments/Notes for Patient Medication Changes/Routing *acetaminophen (Tylenol) Oral multivitamin, ( Multivitamins) Oral, once a day * You have let us know that you are not taking this medication as listed. Please talk with your primary care provider or the health care provider who prescribed the medication as soon as possible. Stop Taking the Following Medications: Medication list as of 12-09-16 10:04 Attention: If you have any medications at home that are not on this list, DO NOT take them until youcontact your provider for clarification. Give a copy of your medication list to your primary care provider. Update your medication list any time medications or doses are changed and carry your medication list at all times in case of emergency. Electronically Signed By: RABIA REAVES CNP, RN Signed On:09-DEC-2016 10:04:43 Your Allergies & Intolerances Substance Reaction Symptoms [...] if you dont have one. Go to [email or web address] and click on Create Your Account. Then, follow the directions to complete the online form. Youll be asked for your [facility] number which you can find at the top of this document. Your Goals/Additional instructions: Source: [facility] POWERCHART Document Id: [id number] Leilani - Rabia Reaves R.N. - 12/09/2016 10:04 AM CDT Ambulatory Discharge Medication List [facility] [address], [address] [place], [place] [id number] Visit Information Name: PUNEET CLAYTON [facility] Number: [id number] Current Date: 12/09/2016 10:04:45 Attending Provider: RABIA REAVES CNP, wire photo operator Provider: CATRACHO NAZARIO PA-C PUNEET CLAYTON has been given the following list of medications: Your Medications It is important to take your medications as directed. Use a pill box or chart to help remind you to take your medications. Please let your doctor or nurse know if you have problems taking your medications. Medication/Strength How to Take Indications/Special Instructions/Comments/Notes for Patient Medication Changes/Routing *acetaminophen (Tylenol) Oral multivitamin, ( Multivitamins) Oral, once a day * You have let us know that you are not taking this medication as listed. Please talk with your primary care provider or the health care provider who prescribed the medication as soon as possible. Stop Taking the Following Medications: Medication list as of 12-09-16 10:04 Attention: If you have any medications at home that are not on this list, DO NOT take them until youcontact your provider for clarification. Give a copy of your medication list to your primary care provider. Update your medication list any time medications or doses are changed and carry your medication list at all times in case of emergency. Electronically Signed By: RABIA REAVES CNP RN Signed On:09-DEC-2016 10:04:43 Additional Information: Source: [facility] POWERCHART Document Id: [id number] Leilani - Alison Monsivais L.P.N. - 12/09/2016 9:48 AM CDT Gin Clerk Documentation Gin Clerk Documentation Entered On: 12/09/2016 9:48 CDT Performed On: 12/09/2016 9:48 CDT by ALISON MONSIVAIS LPN Gin Clerk Documentation Exam/Procedure Performed : pelvic CD Gin Clerk Present : Yes CD Gin Clerk Name : ALISON Randall LPN - 12/09/2016 9:48 CDT Source: [facility] POWERCHART Document Id: [id number] documented in this encounter Plan of Treatment Scheduled Procedures Name Priority Associated Diagnoses Date/Time COLONOSCOPY Diarrhea documented as of this encounter Procedures Procedure Name Priority Date/Time Associated Comments Diagnosis ABSC GEL Routine 12/09/2016 10:15 Results for this AM CDT procedure are i n the results section. SYPHILIS TOTAL AB W/ Routine 12/09/2016 10:15 Res ults for this REFLEX S AM CDT procedure are i n the results section. HIV-1/-2 AG AND AB Routine 12/09/2016 10:15 Resul ts for this SCREEN AM CDT procedure are i n the results section. ABORH, RBC Routine 12/09/2016 10:15 Results for this AM CDT procedure are i n the results section. RUBELLA ANTIBODIES, Routine 12/09/2016 10:15 Resu lts for this IGG AM CDT procedure are i n the results section. HEPATITIS B SURFACE Routine 12/09/2016 10:15 Resu lts for this ANTIGEN AM CDT procedure are i n the results section. CBC WITHOUT Routine 12/09/2016 10:15 Results for this DIFFERENTIAL, B AM CDT procedure ar e in the results section. HEMOGLOBIN A1C, B Routine 12/09/2016 10:15 Result s for this AM CDT procedure are i n the results section. N GONOR AMP SRC Routine 12/09/2016 9:45 AM Result s for this CDT procedure are i n the results section. N GONOR AMP DNA Routine 12/09/2016 9:45 AM Result s for this CDT procedure are i n the results section. C TRACH AMP SRC Routine 12/09/2016 9:45 AM Result s for this CDT procedure are i n the results section. C TRACH AMP RNA Routine 12/09/2016 9:45 AM Result s for this CDT procedure are i n the results section. URINALYSIS WITH Routine 12/09/2016 9:45 AM Result s for this MICROSCOPIC CDT procedure are i n the results section. BACTERIAL CULTURE, Routine 12/09/2016 9:45 AM Res ults for this AEROBIC, URINE CDT procedure are in the results section. PATHOLOGY GUIDANCE CONSULTANT Routine 12/09/2016 9:37 AM Results for this CYTOLOGY CDT procedure are i n the results section. documented in this encounter Results CBC without Differential (12/09/2016 10:15 AM CDT) P athologist Signature Leukocytes 7.7 3.5 - 10.5 POWERCHART X109L Erythrocytes 4.88 3.90 - 5.03 POWERCHART E0512X Hemoglobin 13.7 12.0 - 15.5 POWERCHART GDL Hematocrit 41.4 34.9 - 44.5 POWERCHART MCV 84.8 81.6 - 98.3 POWERCHART FL HX RDW 13.3 11.9 - 15.5 POWERCHART Platelet Count 231 150 - 450 POWERCHART X109L Specimen (Source) Anatomical Collection Method Collection Time Re ceived Time Location / / Volume Laterality Blood 12/09/2016 10:15 AM CDT Rabia Reaves APRN, C.N.P. LAB BLOOD ADD-ON Performing Organization Address City/State/ZIP Code Phon e Number POWERCHART Syphilis IgG Antibody with Reflex (12/09/2016 10:15 AM CDT) athologist Signature Syphilis IgG Negative Negative POWERCHART Ab, S Comment: No serologic evidence of exposure to syp hilis. Test Performed by: [facility] [address] [place] [address] Specimen (Source) Anatomical Collection Method Collection Time Re ceived Time Location / / Volume Laterality Blood 12/09/2016 10:15 AM CDT Rabia Reaves APRN, C.N.P. LAB BLOOD ADD-ON Performing Organization Address City/[facility]/ZIP Code Phon e Number POWERCHART Rubella Antibodies, IgG (12/09/2016 10:15 AM CDT) Analysis Performed At Patho logist Time Signature HX Rubella Equivocal POWERCHART IgG-[place] Comment: Recommend follow-up testing in 10-14 day s if clinically indicated. REFERENCE VALUE------ Vaccinated: Positive (>=1.0 AI) Unvaccinated: Negative (<=0.7 AI) Rubella IgG Antibody Index 0.9 POW ERCHART Comment: Test Performed by: [facility] [address] [place] [address] Specimen (Source) Anatomical Collection Method Collection Time Re ceived Time Location / / Volume Laterality Blood 12/09/2016 10:15 AM CDT Rabia Reaves APRN C.N.P. LAB MICROBIOLOGY - BLOOD ORD ERABLES Performing Organization Address City/[facility] Code Phon e Number POWERCHART HIV-1/-2 Ag and Ab Screen (12/09/2016 10:15 AM CDT) athologist Signature HIV-1/-2 Negative Negative POWERCHART Antibody Comment: Negative result does not rule out HIV in fection. If acute HIV infection is suspected in a hi gh-risk individual, submit plasma specimen for H IV-1 RNA quantification test (HIVDQ) and/or HIV-2 DNA/RNA test (FHV2Q). Test [facility]formed by: [facility] [address] [address] Specimen (Source) Anatomical Collection Method Collection Time Re ceived Time Location / / Volume Laterality Blood 12/09/2016 10:15 AM CDT Rabia Reaves APRN, C.N.P. LAB MICROBIOLOGY - BLOOD ORD ERABLES Performing Organization Address City/[facility]/ZIP Code Phon e Number POWERCHART Hepatitis B Surface Antigen (12/09/2016 10:15 AM CDT) P athologist Signature HBs Antigen, S Negative Negative POWERCHART Comment: Test Performed by: [facility] [address] [place] [address] Specimen (Source) Anatomical Collection Method Collection Time Re ceived Time Location / / Volume Laterality Blood 12/09/2016 10:15 AM CDT Rabia Reaves APRN, C.N.P. LAB MICROBIOLOGY - BLOOD ORD ERABLES Performing Organization Address City/State/ZIP Code Phon e Number POWERCHART Hemoglobin A1c (12/09/2016 10:15 AM CDT) P athologist Signature Hemoglobin A1c, 5.4 <=5.6 A1C POWERCHART B Specimen (Source) Anatomical Collection Method Collection Time Re ceived Time Location / / Volume Laterality Blood 12/09/2016 10:15 AM CDT Rabia Reaves APRN, C.N.P. LAB BLOOD ADD-ON Performing Organization Address City/State/ZIP Code Phon e Number POWERCHART ABSC GEL (12/09/2016 10:15 AM CDT) [facility] gist Method Time Signature HX ABSC Gel Negative ABSC POWERCHART Specimen (Source) Anatomical Collection Method Collection Time Re ceived Time Location / / Volume Laterality 12/09/2016 10:15 AM CDT Rabia Reaves APRN, C.N.P. LAB HISTORICAL ORDERS Performing Organization Address City/[facility]/ZIP Code Phon e Number POWERCHART ABO/Rh (12/09/2016 10:15 AM CDT) P athologist Signature ABORh Interp A NEG POWERCHART Specimen (Source) Anatomical Collection Method Collection Time Re ceived Time Location / / Volume Laterality 12/09/2016 10:15 AM CDT Kendal Erazo APRNNJud LAB BLOOD BANK TEST ORDERABL ES Performing Organization Address [facility]/ZIP Code Phon e Number POWERCHART HX-N gonor Amp DNA (12/09/2016 9:45 AM CDT) P athologist Signature HXN gonor Amp Negative POWERCHART [facility] Specimen (Source) Anatomical Collection Method Collection Time Re ceived Time Location / / Volume Laterality 12/09/2016 9:45 AM CDT Narrative POWERCHART - 12/10/2016 4:54 PM CDT ADDITIONAL INFORMATION This report is intended for use in clini huma monitoring and management of patients. It is not in tended for use in medical-legal applications. Test Performed by: [facility] [place] [address] Kendal Erazo APRNN.P. LAB HISTORICAL ORDERS Performing Organization Address City/State/ZIP Code Phon e Number POWERCHART HX-N gonor Amp Src (12/09/2016 9:45 AM CDT) P athologist Signature HXN gonor Amp vagina POWERCHART Src-[place] Specimen (Source) Anatomical Collection Method Collection Time Re ceived Time Location / / Volume Laterality 12/09/2016 9:45 AM CDT Kendal Erazo APRNN.P. LAB HISTORICAL ORDERS Performing Organization Address City/[facility]/ZIP Code Phon e Number POWERCHART HX-C trach Amp RNA (12/09/2016 9:45 AM CDT) [facility] gist Method Time Signature Chlamydia Negative POWERCHART trachomatis amplified RNA Specimen (Source) Anatomical Collection Method Collection Time Re ceived Time Location / / Volume Laterality 12/09/2016 9:45 AM CDT Narrative POWERCHART - 12/10/2016 4:54 PM CDT ADDITIONAL INFORMATION This report is intended for use in clini huma monitoring and management of patients. It is not in tended for use in medical-legal applications. Kendal Erazo APRNN.P. LAB HISTORICAL ORDERS Performing Organization Address City/[facility]/ZIP Code Phon e Number POWERCHART HX-C trach Amp Src (12/09/2016 9:45 AM CDT) P athologist Signature HXC trach Amp vagina POWERCHART Src-[place] Specimen (Source) Anatomical Collection Method Collection Time Re ceived Time Location / / Volume Laterality 12/09/2016 9:45 AM CDT Marlyn Erazo APRN.N.P. LAB HISTORICAL ORDERS Performing Organization Address City/[facility]/ZIP Code Phon e Number POWERCHART (ABNORMAL) Bacterial Culture, Aerobic, Urine (12/09/2016 9:45 AM CDT) Patholo gist Method Time Signature Bacterial EC Susceptibl POWERCHART Culture, (POSITIVE) Aerobic, Urine HXPre URINE, CLEAN POWERCHART VOID HXPre Pending POWERCHART HXPre Pending-[facility] [address] [place] [address] Comment: URINE, CLEAN VOID Pending Pending-[facility] [address] [place] [address] HXPre URINE, CLEAN VOID POWERCHART HXPre >[id number] COL/ML ESCHERICHIA COLI POWERCHART HXPre >[id number] COL/ML MULTIPLE ORGANISMS SUGGESTING PROBABLE POWERCHART CONTAMINATION HXPre PRELIMINARY, FINAL RESULT TO FOLLOW POWERCHART HXPre Pending-[facility] POWERCHART [address] [place] [address] Comment: URINE, CLEAN VOID >[id number] COL/ML ESCHERICHIA COLI >[id number] COL/ML MULTIPLE ORGANISMS SUGGES TING PROBABLE CONTAMINATION PRELIMINARY, FINAL RESULT TO FOLLOW Pending-[facility] [address] [place] [address] HXFinal EC POWERCHART Comment: URINE, CLEAN VOID >[id number] COL/ML ESCHERICHIA COLI >[id number] COL/ML MULTIPLE ORGANISMS SUGGES TING PROBABLE CONTAMINATION FINAL 12/12/2016-[facility] [address] [place] [address] Escherichia coli Specimen (Source) Anatomical Collection Method Collection Time Re ceived Time Location / / Volume Laterality Urine, First 12/09/2016 9:45 AM Voided CDT Organism Antibiotic Method Susceptibility Escherichia coli Ampicillin SUSCEPTIBILITY, Susceptibl: Francine ceptible NATALIE (MCG/ML) Escherichia coli Ampicillin + Sulbactam SUSCEPTIBILITY, Suscepti bl: Susceptible NATALIE (MCG/ML) Escherichia coli Aztreonam SUSCEPTIBILITY, Susceptibl: Francine ceptible NATALIE (MCG/ML) Escherichia coli Cefepime SUSCEPTIBILITY, Susceptibl: Francine ceptible NATALIE (MCG/ML) Escherichia coli Ceftriaxone SUSCEPTIBILITY, Susceptibl: Francine ceptible NATALIE (MCG/ML) Escherichia coli Ertapenem SUSCEPTIBILITY, Susceptibl: Francine ceptible NATALIE (MCG/ML) Escherichia coli Gentamicin SUSCEPTIBILITY, Susceptibl: Francine ceptible NATALIE (MCG/ML) Escherichia coli Levofloxacin SUSCEPTIBILITY, Susceptibl: Francine ceptible NATALIE (MCG/ML) Escherichia coli Meropenem SUSCEPTIBILITY, Susceptibl: Francine ceptible NATALIE (MCG/ML) Escherichia coli Nitrofurantoin SUSCEPTIBILITY, Susceptibl: Francine ceptible NATALIE (MCG/ML) Escherichia coli Piperacillin + Tazobactam SUSCEPTIBILITY, Susce ptibl: Susceptible NATALIE (MCG/ML) Escherichia coli Trimethoprim + SUSCEPTIBILITY, Susceptibl: Francine ceptible Sulfamethoxazole NATALIE (MCG/ML) Escherichia coli Tobramycin SUSCEPTIBILITY, Susceptibl: Francine ceptible NATALIE (MCG/ML) Rabia Reaves APRN C.N.P. LAB MICROBIOLOGY - GENERAL O RDERABLES Performing Organization Address City/State/ZIP Code Phon e Number POWERCHART (ABNORMAL) Urinalysis, Complete, Includes Microscopic (12/09/2016 9:45 AM CDT) [facility] gist Method Time Signature HXUr Color Yellow Colorless POWERCHART Clarity Slightly Clear POWERCHART Cloudy (A) Glucose Negative Negative POWERCHART MGDL Protein, Ur, Trace Negative POWERCHART Dip MGDL HXBILIRUBIN Negative Negative POWERCHART Urobilinogen 0.2 0.2 MGDL POWERCHART Comment: Reference Range Urobilinogen: 0.2-1.0 mg/dL pH, POCT, Urine 5.5 <5.0 POWERCHART Comment: UA pH Reference Range pH: 5.0-8.0 HXBLOOD Negative Negative POWERCHART Ketones, QL(U) Negative Negative MGDL POWERCHART HXNITRITE Positive (A) Negative POWERCHART Leukocyte Esterase Large (A) Negative POWERCHART Specific Perkins, POCT, U 1.021 ELANA RCHART Comment: Reference Range Specific Perkins: 1.000-1.035 HXUR WBC. 4-10 None Seen HPF POWERCHART HXUR RBC. None Seen None Seen HPF POWERCHART Squamous Epithelial 4-10 (A) None Seen HPF POWERC HERNÁNDEZ Mucus Present (A) None Seen POWERCHART HXUR Bacteria, Present (A) None Seen POWERCHART Specimen (Source) Anatomical Collection Method Collection Time Re ceived Time Location / / Volume Laterality Urine, First 12/09/2016 9:45 AM Voided CDT Rabia Reaves APRN, C.N.P. LAB URINE ORDERABLES Performing Organization Address [facility] Phon e Number POWERCHART Pathology GUIDANCE CONSULTANT Cytology (12/09/2016 9:37 AM CDT) Specimen (Source) Anatomical Collection Method Collection Time Re ceived Time Location / / Volume Laterality 12/09/2016 9:37 AM CDT Narrative LUZ ELENA MAXWELL - 12/11/2016 11:20 AM CD T Pat: PUNEET CLAYTON ?([id number]) Age/Sex: 30 ??F ??Loc: ? -00 (RWN ) [facility] ??LIUDMILA: 12/09/16 09:37 ??REC: 16:00 ??PHYS: , Cytology ?ThinPrep cervical/endocerv Patient Name: PUNEET CLAYTON MR#: [id number] Submitting Physician: RABIA REAVES PSYCHOLOGY ASSISTANT ??[id number] Specimen #[id number] Performing Lab: ??[address] [address] CLINICAL HISTORY: Last menstrual period: Status: Specimen Source: Cervical/Endo Cervical Pap Type: Routine Pap Clinical History/Status: Ancillary Testing: If ASCUS, Reflex to H PV Testing Hormone Therapy: No Pap Specimen: Thin Prep Last Menstrual Period: 10/03/2016 Source: ThinPrep cervical/endocervical specimen [ThinPrep vial] Diagnosis Specimen Adequacy: Satisfactory for interpretation : endoce rvical or transformation zone component present. General Categorization: Negative for intraepithelial lesion or m alignancy. The PAP smear is not a diagnostic proced ure and should not be used as the sole means to detect cervical cancer. ??It is only a screening procedure to aid in the detection of cervical cancer and its pre cursors. ??Both false-negative and false-positive results have been experie nced. Rabia Reaves APRN, C.N.P. LAB PAP COPATH ORDERABLES Performing Organization Address City/State/ZIP Code Phon e Number LUZ ELENA MAXWELL documented in this encounter Visit Diagnoses Not on filedocumented in this encounter Additional Health Concerns Assessment Noted Time PHQ-9 Depression Total Score: 11 12/13/2014 9:50 AM CD T documented as of this encounter
--- OUTSIDE RECORDS SUMMARY | 2022-06-29 09:32 | XMS_ITS | Encounter Summary ---
:1985 Author Organization [facility] Address [address] [place] [address] Care Team Providers Name Role Phone Unavailable Primary Care Provider Unavailable Encounter Details Date Type Department Care Team Description 02/15/2016 Hospital Encounter HX [facility] Renny Castro M.D. [address] [place], [place] [address] (Wo rk) Social History Tobacco Use Types [...] How often do you attend episcopal or latter day More than 4 time [...] Sign Reading Time Taken Comments Blood Pressure 132/75 02/15/2016 9:21 AM CDT Pulse 112 02/15/2016 9:21 AM CDT Temperature - - Respiratory Rate 20 02/15/2016 9:21 AM CDT Oxygen Saturation - - Inhaled Oxygen Concentration - - Weight - - Height 157 cm (5' 1.81) 02/15/2016 9:21 AM CDT Body Mass Index - - documented in this encounter Progress Notes Timbo Acuna M.D. - 02/15/2016 8:56 AM CDT [id number] CHIEF COMPLAINT/REASON FOR VISIT Sore throat. HISTORY OF PRESENT ILLNESS This unfortunate 30-year-old woman with a 1-day history of severe sore throat and exposure to strep throat in her son who was diagnosed and treated last week. She has an occasional cough which is seldom productive. She has felt feverish and had chills but not sweats. PAST MEDICAL/SURGICAL HISTORY Notable for migraine headaches, dysthymia, tobacco use. In addition she has had 1 peritonsillar abscess and is concerned that this is the case at this time. PHYSICAL EXAMINATION VITAL SIGNS: Temp 36.3, pulse 112, respiratory rate 20, blood pressure 132/75, O2 sats 96%. GENERAL: She appears uncomfortable but not in acute distress. There is no respiratory difficulty. HEENT: No evidence of trauma. Conjunctivae are mildly injected. Sclerae anicteric. The ears are normal. The nose is clear. Oropharynx shows moist mucous membranes. Very crowded posterior pharynx with somewhat enlarged tonsils that are shaggy with exudate present. However, the structures are all symmetric or midline. There is no asymmetry of the soft palate, tonsils or pharynx. The uvula elevates in the midline. There is bilateral anterior cervical adenopathy that is mildly tender to palpation but mobile. There is no posterior cervical adenopathy. LUNGS: Clear to auscultation. SKIN: Warm and dry with no rash. DIAGNOSTICS Diagnostic studies show positive strep screen. IMPRESSION/REPORT/PLAN Streptococcal pharyngitis. PLAN: Because of her penicillin allergy, cefuroxime 500 mg 2 times a day for 10 days. Use of ibuprofen and hydrocodone-acetaminophen as needed for pain. Follow up if she cannot swallow. Timbo Acuna M.D./robb Electronically Signed By: TIMBO ACUNA MD On: 02/18/2016 05:30 PM Source: [facility] MHSDOLBEYNONRADSYS Document Id: [id number] documented in this encounter Miscellaneous Notes Miscellaneous - Timbo Acuna M.D. - 02/15/2016 10:25 AM CDT Work Excuse February 15, 2016 PUNEET CLAYTON [address] [facility] [phone] Dear PUNEET CLAYTON, You were examined in my office on: FEBRUARY 15, 2016 Reason for work excuse: Medical Illness ( xx ) Yes ( _ ) No Injury ( _ ) Yes ( xx ) No Is excused from all work: ( xx ) Yes ( _ ) No Has work limitations: ( _ ) Yes ( _ ) No As follows: _ Limitations apply until: _ Follow-Up Appointment : ( _ ) Return to Work date: 02/16/2016 Notes: _ Sincerely, TIMBO ACUNA [address] [place] [address] Electronic Signature Electronically Signed By: TIMBO ACUNA MD On: February 15, 2016 This document has images extracted. Source: [facility] POWERCHART Document Id: [id number] Electronically signed by Roland [facility] [employer] [id number] at 01/16/2017 7:03 PM CDT Miscellaneous - Craig Tolentino, L.P.N. 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 Ambulatory Intake Additional Information : Patient's son had strep last week. Sore throat started last night. Cough. Temperature Core : 36.3 DegC(Converted to: 97.3 DegF) (LOW) Peripheral Pulse Rate : 112 /min (HI) Respiratory Rate : 20 /min Systolic Blood Pressure : 132 mmHg Diastolic Blood Pressure : 75 mmHg NIBP Mean : 94 mmHg BP Location : Left upper extremity Blood Pressure Cuff Size : Large SpO2 : 96 % Oxygen Therapy : Room air Height : 157 cm(Converted to: 5 ft 2 inch(es), 62 inch(es)) CRAIG TOLENTINO [facility] - 02/15/2016 9:21 CDT General Info Information Given By : Patient Preferred Communication Mode : Verbal Languages : Egyptian Is Patient Female and 13-50 no hysterectomy : Yes Status : Patient denies Are you ? : No CRAIG TOLENTINO [facility] - 02/15/2016 9:21 CDT Subjective Pain Symptoms : Yes CRAIG TOLENTINO [facility] - 02/15/2016 9:21 CDT Pain Scale Pain Scale Verbal 0-10 : Open CRAIG TOLENTINO [facility] - 02/15/2016 9:21 CDT Pain Pain Assessment Grid Pain 1 Location : Throat Intensity : 8 CRAIG TOLENTINO [facility] - 02/15/2016 9:21 CDT Dependent Habits Exposure to Tobacco Smoke : Patient smokes Smoking Status : Current every day smoker Tobacco 2A : Yes Tobacco Use/Currently Using : Yes Tobacco Use/Last 30 Days : Yes Tobacco Use/Last 12 months : Yes Type : Cigarettes: Less than 20 per day Tobacco Use/Advised to Quit : Yes Alcohol Use : No CRAIG TOLENTINO [facility] - 02/15/2016 9:21 CDT Caffeine Use Grid Caffeine Use : Current Type : Coffee, Soft drinks Frequency : Occasionally CRAIG TOLENTINO [facility] - 02/15/2016 9:21 CDT Recreational Drug Use Grid Drug Use : None CRAIG TOLENTINO [facility] - 02/15/2016 9:21 CDT [facility] Document Id: [id number] CDT!49 documented in this encounter Plan of Treatment Scheduled Procedures Name Priority Associated Diagnoses Date/Time COLONOSCOPY Diarrhea documented as of this encounter Procedures Procedure Name Priority Date/Time Associated Diagnosis Comme nts RAPID STREP A Routine 02/15/2016 9:27 AM Results for this SCREEN CDT procedure are i n the results section. documented in this encounter Results (ABNORMAL) Rapid Strep A Screen (02/15/2016 9:27 AM CDT) [facility] gist Method Time Signature HXStrep A (POSITIVE) POWERCHART Screen Rapid HXFinal Positive for POWERCHART Group A Strep by rapid screen. Specimen (Source) Anatomical Collection Method Collection Time Re ceived Time Location / / Volume Laterality Throat 02/15/2016 9:27 AM CDT Timbo Acuna M.D. LAB MICROBIOLOGY - GENERAL O RDERABLES Performing Organization Address City/State/ZIP Code Phon e Number POWERCHART documented in this encounter Visit Diagnoses Not on filedocumented in this encounter Additional Health Concerns Assessment Noted Time PHQ-9 Depression Total Score: 11 12/13/2014 9:50 AM CD T documented as of this encounter
--- OUTSIDE RECORDS SUMMARY | 2022-06-29 09:32 | XMS_ITS | Encounter Summary ---
:1985 Author Organization [facility] Address [address] [place] [address] Care Team Providers Name Role Phone Unavailable Primary Care Provider Unavailable Encounter Details Date Type Department Care Team Description 02/07/2016 Hospital Encounter HX [facility] Kyle Colmenares M .D., M.P.H. [address] [place], [place] [phone] (Wo rk) Social History [...] or relatives? How often do you attend mandaeism or methodist More than 4 time s per year 07/09/2020 services? Do you belong to any clubs or organizations No 04/19/2019 such as mandaeism groups, unions, fraternal or athletic groups, or [...] AM CDT documented as of this encounter Nursing Notes Dev Casper L.P.N. - 02/07/2016 11:27 AM CDT Nurse Only Documentation Nurse Only Documentation Entered On: 02/07/2016 11:27 CDT Performed On: 02/07/2016 11:27 CDT by DEV CASPER LPN Nurse Only Documentation Nurse Only Visit Documentation : [facility]O review for [facility]. DEV CASPER LPN - 02/07/2016 11:27 CDT Source: [facility] POWERCHART Document Id: [id number] CDT!3 documented in this encounter Plan of Treatment Scheduled Procedures Name Priority Associated Diagnoses Date/Time COLONOSCOPY Diarrhea documented as of this encounter Visit Diagnoses Not on filedocumented in this encounter Additional Health Concerns Assessment Noted Time PHQ-9 Depression Total Score: 11 12/13/2014 9:50 AM CD T documented as of this encounter
--- OUTSIDE RECORDS SUMMARY | 2022-06-29 09:32 | XMS_ITS | Encounter Summary ---
:1985 Author Organization [facility] Address [address] [place] [address] Care Team Providers Name Role Phone Unavailable Primary Care Provider Unavailable Encounter Details Date Type Department Care Team Description 03/05/2015 Hospital Encounter HX [facility] Jono Freedman M.D. [address] [place] [address] 021 Social History Tobacco Use Types Packs/Day Years [...] How often do you attend hoahaoism or spiritism More than 4 time s [...] Sign Reading Time Taken Comments Blood Pressure 128/63 03/05/2015 11:36 AM CDT Pulse 109 03/05/2015 11:36 AM CDT Temperature - - Respiratory Rate - - Oxygen Saturation - - Inhaled Oxygen Concentration - - Weight - - Height 157 cm (5' 1.81) 03/05/2015 11:36 AM CDT Body Mass Index - - documented in this encounter H&P Notes Thelma Zavala M.D. - 03/05/2015 11:30 AM CDT [id number] CHIEF COMPLAINT/REASON FOR VISIT Throat infection. HISTORY OF PRESENT ILLNESS Puneet is a 29-year-old who comes in to see me with a 1-week history of a sore throat. She saw Dr. Alisha black in [place] on 02/27. A throat culture done was positive for strep. She was started on Keflex at that time. She felt that there was not any significant improvement. Three days later, she was in the Emergency Room here. Dr. Garcia saw her and switched her to Zithromax. She has been on theZithromax now for 3 days. She feels like things are getting worse. She feels like there is more of aswelling and discomfort on that left side. She saw Dr. Snyder in [place]. A CT scan suggested a left multiloculated peritonsillar abscess. She has not had a lot of problems with her tonsils previously. She does smoke less than a half a pack of cigarettes per day. She has not had throat infection of this nature previously. New patient questionnaire and medical history in [facility] reviewed. PAST MEDICAL/SURGICAL HISTORY PAST MEDICAL HISTORY: Include a history of migraines. PREVIOUS HEAD AND NECK SURGERIES: None indicated. FAMILY HISTORY Negative for bleeding disorders. ALLERGIES Penicillin. 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 Does not drink alcohol, but does smoke somewhat of less than a pack of cigarettes per day. SYSTEMS REVIEW Positive for headaches. Others are negative. MEDICATIONS Listed and reviewed in [facility]. PHYSICAL EXAMINATION She is afebrile. She does not appear to be in any acute distress. Her voice actually is fairly clear. She is breathing comfortably. She really does not demonstrate much in the way of trismus. The left tonsil is more swollen than the right. There is no exudate that I can appreciate. She has a large neck. Mood and affect are certainly somewhat apprehensive, but cooperative. DIAGNOSTICS I reviewed the CT scan images. It does look as though there is a multiloculated abscess in the left peritonsillar area. IMPRESSION/REPORT/PLAN Probable peritonsillar abscess, although she really does not demonstrate any trismus, which one would normally expect with an abscess. Based on the CT scan, I think we should at least try and open thisarea up. I did topically anesthetize the throat first with Hurricaine and then injected with 1% lidocaine with epinephrine. I made a small incision in the left peritonsillar area. I probed it with a curved hemostat. I was unable to get any pus. I did use an 18-gauge needle and aspirate in the left peritonsillar area. I was able to get somewhat less than a milliliter of purulence from this area. I re-explored the area with a hemostat, where it seemed as though I was able to aspirate the pus. I openedup into a pocket. There was not much in the way of pus that was drained from the area. Very small peritonsillar abscess was drained. It could be that there is more pus in the area that I was actually able to open up. She had a very tough time keeping her mouth open and was somewhat gaggy during the procedure. I am going to put her on clindamycin 150 mg 3 times a day for 10 days, and I also have given her some Percocet for pain relief. I did give her my card. I told her that if she is not improving over the next couple of days, then I would like to reevaluate her. BILLING This is a new patient level 2 procedure I and D of peritonsillar abscess. Thelma Zavala M.D./robb cc: Parth Snyder M.D. [address] [address] Electronically Signed By: THELMA ZAVALA MD On: 03/05/2015 03:00 PM Source: [facility] MHSDOLBEYNMARGOT Document Id: [id number] documented in this encounter Miscellaneous Notes Telephone Encounter - Thelma Zavala M.D. - 03/11/2015 12:00 AM CDT [id number] Puneet is a 29-year-old who I saw a little over a week ago with a peritonsillar abscess. We did aspirate some purulence from a peritonsillar area. The culture came back positive for strep intermedius. Cultures would suggest that it was resistant to clindamycin. I did put her on clindamycin following the aspiration. I called her to see how she is doing. She says she is doing much, much better. She feels really quite good. I have told her she should finish up the antibiotics. She has not had any side effects, such as diarrhea, and I would be happy to see her if she has further problems. Thelma Zavala M.D./robb Electronically Signed By: THELMA ZAVALA MD On: 03/11/2015 09:42 AM Source: [facility] MHSDOLBEYNONRADSYS Document Id: [id number] Telephone Encounter - Sarina Mark R.N. - 03/06/2015 11:55 AM CDT counselling - throat problems From: CHUNG MARK Sent: 03/06/2015 11:55:35 CDT Subject: counselling - throat problems Puneet called in just to confirm that it is normal to have more stuff in her throat. She says her pain was an 9 yesterday but a 6 today, and she is able to take fluids well and no difficulty breathing. She is tolerating the clindamycin well. I assured her that the drainage could just be caused from the fact that the area was opened yesterday, and to continue drinking lots of fluid especially water. She seemed OK with this advice and I encouraged her to call back is she had any further concerns. Source: [facility] POWERCHART Document Id: [id number] Miscellaneous - Thelma Zavala M.D. - 03/05/2015 12:10 PM CDT Ambulatory Patient Summary [facility] [address], [address] [place] [id number] Visit Information Name: PUNEET FRIED [facility] Number: [id number] Current Date: 03/05/2015 12:10:53 Physicians Attending Provider: THELMA ZAVALA MD Primary Care Provider: ALISON MONACO PA-C PUNEET FRIED has been given the following list of [...] Take Indications/Special Instructions/Comments/Notes for Patient Medication Changes/Routing azithromycin (Zithromax 250 mg oral tablet) 2 tablets on day 1, then 1 tablet on days 2-5, Oral, as directed x 5 day(s) azithromycin (Zithromax 250 mg oral tablet) 2 tablets on day 1, then 1 tablet on days 2-5, Oral, as directed x 5 day(s) clindamycin (clindamycin 150 mg oral capsule) 1 cap, Oral, three times a day x 10 day(s) New Routed to [address] [address] EPINEPHrine (EpiPen Auto-Injector 0.3 mg injectable kit) 0.3 mg, Intramuscular, as directed as needed for Other - per order comments [facility] HYDROcodone-acetaminophen (Vicodin 5 mg-300 mg oral tablet) 1 Tablet(s), Oral, every 6 hours as needed for Pain No more than 4,000mg acetaminophen/24hrs ibuprofen (ibuprofen 200 mg oral tablet) See Instructions 3-4 tabs prn oxyCODONE-acetaminophen (Percocet 5/325 oral tablet) 1 to 2 tablets, Oral, every 6 hours as needed for Pain No more than 4,000mg acetaminophen/24hrs New Routed to [employer] SUMAtriptan (SUMAtriptan 50 mg oral tablet) 1 Tablet(s), Oral, as directed as needed for Migraine headache Take 1 tablet at onset of headache. Repeat after two hours if needed. venlafaxine (venlafaxine 37.5 mg oral tablet, extended release) 1 Tablet(s), Oral, once a day 1 tab daily x 1 week. Then increase to 2 tabs daily as tolerated. venlafaxine (venlafaxine 37.5 mg oral capsule, extended release) 1 cap, Oral, once a day 1 tab dailyx 1 week. Increase to 2 tabs daily as tolerated. Stop Taking the Following Medications: Medication list as of 03-05-15 12:10 Attention: If you have any medications at home that are not on this list, DO NOT take them until youcontact your provider for clarification. Give a copy of your medication list to your primary care provider. Update your medication list any time medications or doses are changed and carry your medication list at all times in case of emergency. Electronically Signed By: THELMA ZAVALA MD Signed On:05-MAR-2015 12:10:43 Your Allergies & Intolerances Substance Reaction Symptoms Category Comments penicillins Drug Your Problem List Problem Status Onset Comments Active 08/23/2007 Headache Migraine Active 01/21/2012 Headache Active 10/24/2007 11/18/13 Headache Dysthymic Disorder Active 08/01/2010 11/18/13 Dysthymic disorder Abuse Tobacco Smoking NOS Active Your Upcoming Appointments Date Time Location Provider [...] you dont have one. Go to [email or web address] and click on Create Your Account. Then, follow the directions to complete the online form. Youll be asked for your [facility] number which you can find at the top of this document. Your Goals/Additional instructions: Source: [facility] POWERCHART Document Id: [id number] Miscellaneous - Thelma Zavala M.D. - 03/05/2015 12:10 PM CDT Ambulatory Discharge Medication List [facility] [address], [address] [place] [id number] Visit Information Name: PUNEET FRIED [facility] Number: [id number] Visit Date: 03/05/2015 12:10:51 Attending Provider: THELMA ZAVALA MD Primary Care Provider: ALISON MONACO PA-C PUNEET FRIED has been given the following list of medications: Your Medications It is important to take your medications as directed. Use a pill box or chart to help remind you to take your medications. Please let your doctor or nurse know if you have problems taking your medications. Medication/Strength How to Take Indications/Special Instructions/Comments/Notes for Patient Medication Changes/Routing azithromycin (Zithromax 250 mg oral tablet) 2 tablets on day 1, then 1 tablet on days 2-5, Oral, as directed x 5 day(s) azithromycin (Zithromax 250 mg oral tablet) 2 tablets on day 1, then 1 tablet on days 2-5, Oral, as directed x 5 day(s) clindamycin (clindamycin 150 mg oral capsule) 1 cap, Oral, three times a day x 10 day(s) New Routed to [address] [address] EPINEPHrine (EpiPen Auto-Injector 0.3 mg injectable kit) 0.3 mg, Intramuscular, as directed as needed for Other - per order comments [facility] [employer] HYDROcodone-acetaminophen (Vicodin 5 mg-300 mg oral tablet) 1 Tablet(s), Oral, every 6 hours as needed for Pain No more than 4,000mg acetaminophen/24hrs ibuprofen (ibuprofen 200 mg oral tablet) See Instructions 3-4 tabs prn oxyCODONE-acetaminophen (Percocet 5/325 oral tablet) 1 to 2 tablets, Oral, every 6 hours as needed for Pain No more than 4,000mg acetaminophen/24hrs New Routed to [employer] SUMAtriptan (SUMAtriptan 50 mg oral tablet) 1 Tablet(s), Oral, as directed as needed for Migraine headache Take 1 tablet at onset of headache. Repeat after two hours if needed. venlafaxine (venlafaxine 37.5 mg oral tablet, extended release) 1 Tablet(s), Oral, once a day 1 tab daily x 1 week. Then increase to 2 tabs daily as tolerated. venlafaxine (venlafaxine 37.5 mg oral capsule, extended release) 1 cap, Oral, once a day 1 tab dailyx 1 week. Increase to 2 tabs daily as tolerated. Stop Taking the Following Medications: Medication list as of 03-05-15 12:10 Attention: If you have any medications at home that are not on this list, DO NOT take them until youcontact your provider for clarification. Give a copy of your medication list to your primary care provider. Update your medication list any time medications or doses are changed and carry your medication list at all times in case of emergency. Electronically Signed By: THELMA ZAVALA MD Signed On:05-MAR-2015 12:10:43 Additional Information: Source: [facility] POWERCHART Document Id: [id number] Miscellaneous - Mariaelena Dominguez, R.N. 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 Installer Intake/History Adult Shower Enclosure Installer Intake/History Entered On: 03/05/2015 11:40 CDT Performed On: 03/05/2015 11:36 CDT by MARIAELENA DOMINGUEZ clothing trades workers Chief Complaint : left peritonsillar abcess Temperature Core : 36.9 DegC(Converted to: 98.4 DegF) Peripheral Pulse Rate : 109 /min (HI) Systolic Blood Pressure : 128 mmHg Diastolic Blood Pressure : 63 mmHg NIBP Mean : 85 mmHg Height : 157 cm(Converted to: 5 ft 2 inch(es), 62 inch(es)) MARIAELENA DOMINGUEZ RN - 03/05/2015 11:36 CDT General Info Information Given By : Patient Languages : Slovak Is Patient Female and 13-50 no hysterectomy : Yes Status : Patient denies Are you ? : No MARIAELENA DOMINGUEZ RN - 03/05/2015 11:36 CDT Subjective Pain Symptoms : Yes MARIAELENA DOMINGUEZ RN - 03/05/2015 11:36 CDT Pain Scale Pain Scale Verbal 0-10 : Open MARIAELENA DOMINGUEZ RN - 03/05/2015 11:36 CDT Pain Pain Assessment Grid Pain 1 Location : Throat Laterality : Left Intensity : 7 MARIAELENA DOMINGUEZ RN - 03/05/2015 11:36 CDT Dependent Habits Tobacco Use/Currently Using : Yes Exposure to Tobacco Smoke : Patient smokes Smoking Status : Current every day smoker MARIAELENA DOMINGUEZ RN - 03/05/2015 11:36 CDT Tobacco Use Grid Type : Cigarettes Cigarette Use Packs/Day : 0.5 MARIAELENA DOMINGUEZ RN - 03/05/2015 11:36 CDT Caffeine Use Grid Caffeine Use : Current Type : Coffee, Soft drinks Frequency : Occasionally MARIAELENA DOMINGUEZ RN - 03/05/2015 11:36 CDT Recreational Drug Use Grid Drug Use : None MARIAELENA DOMINGUEZ - 03/05/2015 11:36 CDT Source: [facility] [employer]ART Document Id: [id number]!41 documented in this encounter Plan of Treatment Scheduled Procedures Name Priority Associated Diagnoses Date/Time COLONOSCOPY Diarrhea documented as of this encounter Procedures Procedure Name Priority Date/Time Associated Diagnosis Comme nts BACTERIAL CULTURE, Routine 03/05/2015 12:01 PM Re sults for this AEROBIC CDT procedure are i n the results section. documented in this encounter Results (ABNORMAL) Bacterial Culture, Aerobic (03/05/2015 12:01 PM CDT) [facility] gist Method Time Signature Wound Culture STRINT <=0.25 POWERCHART (POSITIVE) HXPre Culture in POWERCHART progress Comment: Culture in progress HXFinal STRINT POWERCHART Comment: Moderate growth Streptococcus i ntermedius Specimen (Source) Anatomical Collection Method Collection Time Re ceived Time Location / / Volume Laterality Abscess (Abscess) 03/05/2015 12:01 PM CDT Comment: LEFT TONSIL Organism Antibiotic Method Susceptibility Streptococcus intermedius Ampicillin SUSCEPTIBILITY, NATALIE <= 0.25: Susceptible (MCG/ML) Streptococcus intermedius Benzylpenicillin SUSCEPTIBILITY, NATALIE < =0.06: Susceptible (MCG/ML) Streptococcus intermedius Cefotaxime SUSCEPTIBILITY, NATALIE <= 0.12: Susceptible (MCG/ML) Streptococcus intermedius Ceftriaxone SUSCEPTIBILITY, NATALIE <= 0.12: Susceptible (MCG/ML) Streptococcus intermedius Clindamycin SUSCEPTIBILITY, NATALIE >= 1: Resistant (MCG/ML) Streptococcus intermedius Erythromycin SUSCEPTIBILITY, NATALIE >= 8: Resistant (MCG/ML) Streptococcus intermedius Levofloxacin SUSCEPTIBILITY, NATALIE 0. 5: Susceptible (MCG/ML) Streptococcus intermedius Linezolid SUSCEPTIBILITY, NATALIE <= 2: Susceptible (MCG/ML) Streptococcus intermedius Tetracycline SUSCEPTIBILITY, NATALIE <= 0.25: Susceptible (MCG/ML) Streptococcus intermedius Vancomycin SUSCEPTIBILITY, NATALIE 0. 25: Susceptible (MCG/ML) Comment: left tonsil Thelma Zavala M.D. LAB MICROBIOLOGY - GENERAL O RDERABLES Performing Organization Address City/State/ZIP Code Phon e Number POWERCHART documented in this encounter Visit Diagnoses Not on filedocumented in this encounter Additional Health Concerns Assessment Noted Time PHQ-9 Depression Total Score: 11 12/13/2014 9:50 AM CD T documented as of this encounter
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
--- OUTSIDE RECORDS SUMMARY | 2022-06-29 09:32 | XMS_ITS | Encounter Summary ---
:1985 Author Organization [facility] Address [address] [place] [address] Care Team Providers Name Role Phone Unavailable Primary Care Provider Unavailable Encounter Details Date Type Department Care Team Description 01/15/2016 Hospital Encounter HX [facility] Kyle Colmenares M .D., M.P.H. [address] [place], [place] [phone] (Wo rk) Social History [...] How often do you attend episcopal or druze More than 4 time s [...] documented as of this encounter Nursing Notes Venice Bean L.P.N. - 01/15/2016 10:12 AM CDT Nurse Only Documentation Nurse Only Documentation Entered On: 01/15/2016 10:12 CDT Performed On: 01/15/2016 10:12 CDT by VENICE BEAN LPN Nurse Only Documentation Nurse Only Visit Documentation : Pre employment UDS collected for [facility], uneventful collection. VENICE BEAN LPN - 01/15/2016 10:12 CDT Source: [facility] POWERCHART Document Id: [id number] CDT!3 documented in this encounter Plan of Treatment Scheduled Procedures Name Priority Associated Diagnoses Date/Time COLONOSCOPY Diarrhea documented as of this encounter Visit Diagnoses Not on filedocumented in this encounter Additional Health Concerns Assessment Noted Time PHQ-9 Depression Total Score: 11 12/13/2014 9:50 AM CD T documented as of this encounter
--- OUTSIDE RECORDS SUMMARY | 2022-06-29 09:32 | XMS_ITS | Encounter Summary ---
:1985 Author Organization [facility] Address [address] [place] [address] Care Team Providers Name Role Phone Unavailable Primary Care Provider Unavailable Encounter Details Date Type Department Care Team Description 11/24/2016 Hospital Encounter HX [facility] Marisol Lopez APRN, C.N.P. [address] [place] [address] (Wo rk) Social History Tobacco [...] often do you attend roman catholic or temple More than 4 time s per year [...] - - Height 158 cm (5' 2.21) 11/24/2016 8:34 AM CDT Body Mass Index - - documented in this encounter Medications at Time of Discharge Medication Sig Dispensed Refills Start Date End Date ACETAMINOPHEN/DEXTROMETHORP Take by mouth. 0 04/201707/29/2017 SANDOVAL (ACETAMINOPHEN-DM ORAL) PNV NO.95/FERROUS FUM/FOLIC Take by mouth 0 11/0607/29/2017 AC ( MULTIVITAMINS daily. ORAL) documented as of this encounter Miscellaneous Notes Miscellaneous - Conversion, Historical Provider Ser - 11/24/2016 11:59 PM CDT Coding Summary-Paper Based CODING DATE: 11/27/2016 FINAL [facility] STATUS: * Discharged to Home or Self Care [facility]: REASON FOR VISIT DX: FINAL DX: PRINCIPAL: Z36 Encounter for screening of mother SECONDARY: Z3A.09 9 weeks gestation of PROCEDURES DOCTOR NAME DATE NOTE: The code number assigned matches the documented diagnosis and / or procedure in the patient's chart. However, the narrative phrase printed from the coding software may appear abbreviated, or result in slightly different terminology. Coded By: ANGELA ROLDAN Date Saved: 11/27/2016 10:20 am Source: testhub Document Id: [id number] Miscellaneous - Leonora Villaseñor RBrittaneyN. - 11/24/2016 12:58 PM CDT From: LEONORA VILLASEÑOR CNP, RN Sent: 11/24/2016 12:58:55 CDT patient notified of ultrasound results. she will schedule new ob visit as soon as she is able. Source: testhub Document Id: [id number] Electronically signed by [facility], [facility] Principal Planner [id number] at 02/02/2017 6:27 AM CDT documented in this encounter Plan of Treatment Scheduled Procedures Name Priority Associated Diagnoses Date/Time COLONOSCOPY Diarrhea documented as of this encounter Visit Diagnoses Not on filedocumented in this encounter Additional Health Concerns Assessment Noted Time PHQ-9 Depression Total Score: 11 12/13/2014 9:50 AM CD T documented as of this encounter
--- OUTSIDE RECORDS SUMMARY | 2022-06-29 09:32 | XMS_ITS | Encounter Summary ---
:1985 Author Organization [facility] Address [address] [place] [address] Care Team Providers Name Role Phone Unavailable Primary Care Provider Unavailable Encounter Details Date Type Department Care Team Description 11/09/2016 Hospital Encounter HX [facility] Ashwin Bundy P.ACalistaCBrittaney [address] [place], [place] [id number] (Wo rk) Social History Tobacco Use Types [...] How often do you attend anglican or yarsanism More than 4 time s [...] - - Height 158 cm (5' 2.21) 11/09/2016 9:30 AM CDT Body Mass Index - - documented in this encounter Medications at Time of Discharge Medication Sig Dispensed Refills Start Date End Date ACETAMINOPHEN/DEXTROMETHORP Take by mouth. 0 04/201707/29/2017 SANDOVAL (ACETAMINOPHEN-DM ORAL) PNV NO.95/FERROUS FUM/FOLIC Take by mouth 0 11/0607/29/2017 AC ( MULTIVITAMINS daily. ORAL) documented as of this encounter Miscellaneous Notes Miscellaneous - Leonora Villaseñor RBrittaneyN. - 11/17/2016 8:50 AM CDT RE: No subject From: LEONORA VILLASEÑOR CNP, RN To: PUNEET CLAYTON Sent: 11/17/2016 08:50:09 CDT Subject: RE: No subject You can do it on another day... or if you want to reschedule so its all on one day, that would be fine as well. Whatever is most convenient for you! From: PUNEET CLAYTON To: [facility] (SCREENER AND BLENDER OPERATOR) Sent: 11/16/2016 11:13 a.m. CDT Subject: RE: No subject Quinn Lea, I was wondering about my Ob appointment for after my ultrasound on November 24 there are no appointments available for me that day so I was wondering if I could do it another day or if it has to be on that same day... Thank you! Puneet From: LEONORA VILLASEÑOR CNP, RN To: PUNEET CLAYTON Sent: 11/09/2016 13:32:27 CDT Quinn Medina I tried to reach you by phone, but wasnt able to leave a message. Your beta hcg level is going up, just like it should be. I think you can certainly keep you ultrasound sheduled as is. You will need a visit with either me or one of my colleagues for new ob education, exam etc. This will need to be sche duled....this is also about a 1 hour appointment. Please call the clinic in [place], talk with Tejal in [facility] to schedule! talk soon! Leonora Villaseñor Source: [facility] [employer] Document Id: [id number] Electronically signed by Conversion, [facility] Physicist Acoustics [id number] at 02/02/2017 2:11 AM CDT Miscellaneous - Leonora Villaseñor, R.N. - 11/09/2016 1:32 PM CDT From: LEONORA VILLASEÑOR CNP, RN To: PUNEET CLAYTON Sent: 11/09/2016 13:32:27 CDT Quinn Medina, I tried to reach you by phone, but wasn't able to leave a message. Your beta hcg level is going up, just like it should be. I think you can certainly keep you ultrasound sheduled as is. You will need avisit with either me or one of my colleagues for new ob education, exam etc. This will need to be naveed eduled....this is also about a 1 hour appointment. Please call the clinic in [place], talk with Tejal in [facility] to schedule! talk soon! Leonora Villaseñor Source: [facility] [employer] Document Id: [id number] Electronically signed by Conversion, [facility] Physicist Acoustics [id number] at 02/02/2017 2:11 AM CDT documented in this encounter Plan of Treatment Scheduled Procedures Name Priority Associated Diagnoses Date/Time COLONOSCOPY Diarrhea documented as of this encounter Procedures Procedure Name Priority Date/Time Associated Diagnosis Comme nts BHCG (BETA-HUMAN Routine 11/09/2016 9:39 AM Resul ts for this CHORIONIC CDT procedure are i n GONADOTROPIN), the results MARCI, S section. documented in this encounter Results (ABNORMAL) bHCG (Beta-Human Chorionic Gonadotropin), Quantitative (11/09/2016 9:39 AM CDT) Analysis Performed At Patho logist Time Signature Beta-HCG, 52314.0 <=4.9 IUL POWERCHART Quantitative, (H) S Comment: Gianna- and postmenopausal females >40 [...] Time Location / / Volume Laterality Blood 11/09/2016 9:39 AM CDT Leonora Villaseñor APRN, C.N.P. LAB BLOOD ADD-ON Performing Organization Address City/State/ZIP Code Phon e Number POWERCHART documented in this encounter Visit Diagnoses Not on filedocumented in this encounter Additional Health Concerns Assessment Noted Time PHQ-9 Depression Total Score: 11 12/13/2014 9:50 AM CD T documented as of this encounter
--- OUTSIDE RECORDS SUMMARY | 2022-06-29 09:32 | XMS_ITS | Encounter Summary ---
:1985 Author Organization [facility] Address [address] [place] [id number] Care Team Providers Name Role Phone Unavailable Primary Care Provider Unavailable Encounter Details Date Type Department Care Team Description 11/05/2014 - Hospital Encounter HX [facility] John Berman 05/22/2015 Mago Purdy, M.S. [address] [place] [phone] Social History Tobacco Use Types Packs/Day Years [...] How often do you attend temple or anglican More than 4 time s [...] CDT documented as of this encounter Discharge Summaries Dev Wang PJosie. - 12/31/2014 8:54 AM CDT neck Discharge Summary for Outpatient PT Dates of Service: 11/05/14-11/28/14 Number of Visits: 5 Physical/functional status at last visit / patient contact: Functional Questionnaire and/or Outcome Measure: NDI Pre: 32% Post: Unable to administer as patient discontinued therapy without notice. Claims Based Outcome Reporting: NA Objective report of the patient's subjective statements: Patient reports a current pain / symptom level of unknown/10 compared to 4-6/10 at the start of care. Unable to determine patient's current level of pain, however patient reported 1/10 pain at last visit on 11/28/14. Patient reports a unknown% improvement in symptoms since start of care. SKILLED INTERVENTIONS AND GOAL STATUS Modalities to: alleviate pain and/or edema, increase tissue flexibility Therapeutic Exercise to develop: strength and endurance, flexibility, joint mobility Manual Therapy to: improve joint mobility, improve soft tissue mobility, decrease pain Neuromuscular Reeducation to improve: posture, movement Education in Self-Care / Home Management to include instruction in: joint protection principles, symptom control techniques Therapeutic Activities to: improve functional performance in daily activities, work activities, ANTICIPATED GOALS AND EXPECTED OUTCOMES: Cervical Spine - Neck Disability Index: Minimal clinically important difference of 19% in 8 weeks. Patient to demonstrate ability to lift (household items) without restriction or increased symptoms within 8 week(s). Patient will be able to sleep without waking due to pain within 8 weeks. Patient will be able to perform homemaking / yard work activities (without restriction or increased symptoms) in 8 week(s). Patient will be able to perform all required job duties (without restriction or increased symptoms) in 8 week(s). Patient will be independent and safe with home exercise / self-care program in 2 week(s). Patient will have a good working knowledge of posture principles / joint protection in 4 week(s). Patient will report at least 75% improvement in 8 week(s). Goal status unknown as patient failed to follow up with therapy as planned. CRITERIA FOR DISCHARGE Patient, family, or caregiver, declined to continue care. DISCHARGE PLAN Home exercise and self-care program. Electronically Signed By: DEV WANG PT On: 12/31/2014 08:57 AM Source: [employer] POWERCHART Document Id: [id number] documented in this encounter Progress Notes Dev Wang P.T. - 11/28/2014 11:28 AM CDT neck PT THERAPY DAILY VISIT NOTE Signs and symptoms consistent with: Postural neck and upper back pain and headaches presenting with upper trap and levator scapula tightness and soft tissue restriction, thoracic hypomobility with limited extension, decreased cervical and scapular stabilization, and decreased postural strength limiting daily, leisure and work activities. Visits used/Authorized: 01/05 per POC (POC up 12/31/14) SUBJECTIVE: Since the last visit, the patient reports continued improvement in symptoms reporting decreased frequency and intensity of headaches and neck pain. Patient reports 09/01 pain today. Pain initial visit was -01/30. Patient reports she has not taken any medication to control symptoms and feels the exercises and therapy are more beneficial in reducing symptoms than the medicine. Patient reports good compliance with HEP. She feels the stretches and exercises are beneficial. OBJECTIVE: Current / pertinent objective findings or assessment results at todays visit: Decreasing but persistent bilateral upper trap and levator scapula tightness and myofascial restrictio. TREATMENT TODAY CONSISTED OF: Manual Therapy: 24 minutes STM and TPR to bilateral upper trapezius, levator scapula, upper thoracic paraspinals and perisapular musculature with patient in prone IASTM to bilateral upper trapezius, levator scapula, upper thoracic paraspinals and periscapular musculature with patient in prone Prone thoracic PA mobilizations Supine SOR Therapeutic exercise x 2 minutes: Upper trap stretch Levator scapula stretch Current Home Program: Supine chin tuck with gentle retraction 5 sec hold x 10 reps, 2x/day Green TB resisted row x 20 reps, 1x/day- cues to avoid upper trap compensation and forward head position Seated scapular retractions x 10 reps, often during day Seated chin tucks x 10 reps, 2x/day Upper trap stretch 30 sec x 2-3 reps, 2-3x/day Levator scapula stretch 30 sec x 2-3 reps, 2-3x/day Seated barrel stretch 30 sec x 2-3 reps, 2-3x/day ASSESSMENT: Post treatment response: Patient reports decreased tightness and pain post treatment. Brief progress summary: Pain and flexibility improving, headaches improving. Patient requires continued skilled therapy to address pain, flexibility limitations, strength/endurance limitations, poor posture, joint hypomobility, muscle imbalance, soft tissue mobility limitations, strength/endurance limi tations, deconditioning. Anticipated goals and expectec outcomes: Patient is progressing toward completion of goals. PLAN: Continue with prescribed plan of care 2x/week- progress as tolerated. Focus next session will be on:patient education, pain relief, soft tissue mobility, joint mobility, flexibility, and strength/endurance including: ultrasound as indicated, STM/IASTM, manual stretching, SOR, cervical and thoracic mob ilizations, progress scapular and cervical stabilization as able. Total Visit Time: 25 minutes Billing Collections Specialist Present NA Electronically Signed By: DEV WANG PT On: 11/28/2014 11:31 AM Source: [employer] Document Id: [id number] Dev Wang P.T. - 11/21/2014 12:33 PM CDT neck PT THERAPY DAILY VISIT NOTE Signs and symptoms consistent with: Postural neck and upper back pain and headaches presenting with upper trap and levator scapula tightness and soft tissue restriction, thoracic hypomobility with limited extension, decreased cervical and scapular stabilization, and decreased postural strength limiting daily, leisure and work activities. Visits used/Authorized: 12/06 per POC (POC up 12/31/14) SUBJECTIVE: Since the last visit, the patient reports continued improvement in symptoms reporting decreased frequency and intensity of headaches and neck pain. Patient reports 2/10 pain today. Pain initial visit was 4-01/30. Patient reports she has not taken any medication to control symptoms. Patient reports new onset of tightness and soreness in left shoulder blade. Patient reports good compliance with HEP. Shefeels the stretches and exercises are beneficial. OBJECTIVE: Current / pertinent objective findings or assessment results at todays visit: Bilateral upper trapezius and levator scapula tightness, upper thoracic paraspinals and myofascial restriction Upper trap and periscapular musculature TPs noted left greater than right TREATMENT TODAY CONSISTED OF: Manual Therapy: 18 minutes STM and TPR to bilateral upper trapezius, levator scapula, upper thoracic paraspinals and perisapular musculature with patient in prone IASTM to bilateral upper trapezius, levator scapula, upper thoracic paraspinals and periscapular musculature with patient in prone Prone thoracic PA mobilizations Supine SOR Therapeutic exercise x 8 minutes: Seated barrel stretch for left rhomboid 2 x 30 seconds- added to HEP Seated thoracic extension/self mobilization x 10 reps Supine upper trap stretch bilaterally Current Home Program: Supine chin tuck with gentle retraction 5 sec hold x 10 reps, 2x/day Green TB resisted row x 20 reps, 1x/day- cues to avoid upper trap compensation and forward head position Seated scapular retractions x 10 reps, often during day Seated chin tucks x 10 reps, 2x/day Upper trap stretch 30 sec x 2-3 reps, 2-3x/day Levator scapula stretch 30 sec x 2-3 reps, 2-3x/day Seated barrel stretch 30 sec x 2-3 reps, 2-3x/day ASSESSMENT: Post treatment response: Patient reports decreased tightness post treatment. Brief progress summary: Pain and flexibility improving, headaches improving. Patient requires continued skilled therapy to address pain, flexibility limitations, strength/endurance limitations, poor posture, joint hypomobility, muscle imbalance, soft tissue mobility limitations, strength/endurance limi tations, deconditioning. Anticipated goals and expectec outcomes: Patient is progressing toward completion of goals. PLAN: Continue with prescribed plan of care 2x/week- progress as tolerated. Focus next session will be on:patient education, pain relief, soft tissue mobility, joint mobility, flexibility, and strength/endurance including: ultrasound as indicated, STM/IASTM, manual stretching, SOR, cervical and thoracic mob ilizations, progress scapular and cervical stabilization as able. Total Visit Time: 27 minutes Billing Collections Specialist Present NA Electronically Signed By: DEV WANG PT On: 11/21/2014 12:41 PM Source: [employer] Document Id: [id number] Daniel Craft P.T. - 11/16/2014 11:17 AM CDT neck PT THERAPY DAILY VISIT NOTE Signs and symptoms consistent with: Postural neck and upper back pain and headaches presenting with upper trap and levator scapula tightness and soft tissue restriction, thoracic hypomobility with limited extension, decreased cervical and scapular stabilization, and decreased postural strength limiting daily, leisure and work activities. Visits used/Authorized: 11/05 per POC (POC up 12/31/14) SUBJECTIVE: Since the last visit, the patient reports her CHOWDHURY intensity overall was less and 2 days ago she had lynn mild CHOWDHURY i felt like normal for the first time in a long time. Patient reports 11/30 pain today. Pain initial visit was 4-01/30. Patient reports she has not been taking Amitrax as often to control her pain. Patient reports she currently has a headache at time of appointment today. Patient reports good compliance with HEP. pt was 10 minutes late to her appointment OBJECTIVE: Current / pertinent objective findings or assessment results at todays visit: Bilateral upper trapezius and levator scapula tightness, upper thoracic paraspinals and myofascial restriction Upper trap TPs noted bilaterally TREATMENT TODAY CONSISTED OF: MODALITIES: US not performed due to time constraints Manual Therapy: 18 minutes STM and TPR to bilateral upper trapezius, and levator scapula, upper thoracic paraspinals with patient in prone Current Home Program: Supine chin tuck with gentle retraction 5 sec hold x 10 reps, 2x/day Green TB resisted row x 20 reps, 1x/day- cues to avoid upper trap compensation and forward head position Seated scapular retractions x 10 reps, often during day Seated chin tucks x 10 reps, 2x/day Upper trap stretch 30 sec x 2-3 reps, 2-3x/day Levator scapula stretch 30 sec x 2-3 reps, 2-3x/day ASSESSMENT: Post treatment response: Patient reports decreased tightness post treatment, no change in headache symptoms. Brief progress summary: Symtoms unchanged. Patient requires continued skilled therapy to address pain, flexibility limitations, strength/endurance limitations, poor posture, joint hypomobility, muscle imbalance, soft tissue mobility limitations, strength/endurance limitations, deconditioning. Anticipated goals and expectec outcomes: Patient is progressing toward completion of goals. PLAN: Continue with prescribed plan of care 2x/week- progress as tolerated. Focus next session will be on:patient education, pain relief, soft tissue mobility, joint mobility, flexibility, and strength/endurance including: ultrasound, STM/IASTM, TPR, manual stretching, SOR, cervical and thoracic mobilizations, thoracic extension exercises and self mobilization, progress scapular and cervical stabilization. Total Visit Time: 22 minutes Billing Collections Specialist Present NA Electronically Signed By: DANIEL CRAFT PT On: 11/16/2014 11:20 AM Source: [facility] POWERCHART Document Id: [id number] Dev Wang P.T. - 11/07/2014 10:56 AM CDT PT THERAPY DAILY VISIT NOTE Signs and symptoms consistent with: Postural neck and upper back pain and headaches presenting with upper trap and levator scapula tightness and soft tissue restriction, thoracic hypomobility with limited extension, decreased cervical and scapular stabilization, and decreased postural strength limiting daily, leisure and work activities. Visits used/Authorized: 10/08 per POC (POC up 12/31/14) SUBJECTIVE: Since the last visit, the patient reports: no change in symptoms. Patient reports 5/10 pain today. Pain initial visit was 4-6/10. Patient reports she has been needing to take Amitrax to control her pain. Patient reports she currently has a headache at time of appointment today. Patient reports good compliance with HEP. OBJECTIVE: Current / pertinent objective findings or assessment results at todays visit: Bilateral upper trapezius and levator scapula tightness and myofascial restriction Upper trap TPs noted bilaterally TREATMENT TODAY CONSISTED OF: MODALITIES: Objective: relieve pain and increase tissue flexibility Contraindications and precautions were reviewed with the patient. Patient advised to alert the treating therapist if the modality is uncomfortable or too hot / cold. Ultrasound: 100% US at 1.8 w/cm2, 1.0 MHz x 10 minutes (5 minutes each side) to bilateral cervical paraspinals and upper trapezius. Patient position: prone. No abnormal tissue response upon visual observation / inspection. Manual Therapy: 15 minutes STM and TPR to bilateral cervical paraspinals, suboccipitals, upper trapezius, and levator scapula with patient in prone IASTM to bilateral cervical paraspinals, suboccipitals, upper trapezius, and levator scapula with patient in prone Therapeutic exercise x 2 minutes: Bilateral upper trap stretching with patient in supine Current Home Program: Supine chin tuck with gentle retraction 5 sec hold x 10 reps, 2x/day Green TB resisted row x 20 reps, 1x/day- cues to avoid upper trap compensation and forward head position Seated scapular retractions x 10 reps, often during day Seated chin tucks x 10 reps, 2x/day Upper trap stretch 30 sec x 2-3 reps, 2-3x/day Levator scapula stretch 30 sec x 2-3 reps, 2-3x/day ASSESSMENT: Post treatment response: Patient reports decreased tightness post treatment, no change in headache symptoms. Brief progress summary: Symtoms unchanged. Patient requires continued skilled therapy to address pain, flexibility limitations, strength/endurance limitations, poor posture, joint hypomobility, muscle imbalance, soft tissue mobility limitations, strength/endurance limitations, deconditioning. Anticipated goals and expectec outcomes: Patient is progressing toward completion of goals. PLAN: Continue with prescribed plan of care 2x/week- progress as tolerated. Focus next session will be on:patient education, pain relief, soft tissue mobility, joint mobility, flexibility, and strength/endurance including: ultrasound, STM/IASTM, TPR, manual stretching, SOR, cervical and thoracic mobilizations, thoracic extension exercises and self mobilization, progress scapular and cervical stabilization. Total Visit Time: 30 minutes Billing Collections Specialist Present NA Electronically Signed By: DEV WANG PT On: 11/07/2014 11:04 AM Source: [employer] POWERCHART Document Id: [id number] documented in this encounter H&P Notes Dev Wang P.T. - 11/05/2014 8:37 AM CDT neck REHAB SNAPSHOT REFERRING PROVIDER Rosalind Monaco PA-C MD VISIT DATE 11/01/14 RECHECK 1 month ORDERS EVALUATE AND TREAT FOR: headaches CONTRAINDICATIONS OR SPECIAL INSTRUCTIONS none ONSET / DATE OF SURGERY 3 years ago, worsening symptoms over last few months REHAB CLINICAL IMPRESSION Signs and symptoms consistent with: Postural neck and upper back pain and headaches presenting with upper trap and levator scapula tightness and soft tissue restriction, thoracic hypomobility with limited extension, decreased cervical and scapular stabilization, and decreased postural strength limiting daily, leisure and work activities. PHYSICAL THERAPY - INITIAL EVALUATION and PLAN OF CARE SUBJECTIVE PRESENTATION AND ETIOLOGY CHIEF COMPLAINT: Headaches, neck and upper back pain and tightness limiting their ability to performdaily activities, leisure and work activities. SECONDARY COMPLAINTS: none ONSET / ETIOLOGY: Patient reports onset of migraine headaches about 3 years ago, however reports worsening headaches over the past few months that are now constant, daily, and more painful. PATTERN SINCE ONSET: worsened PERTINENT MEDICAL / SURGICAL HISTORY (contributing factors to the severity/complexity of the patients chief complaint): obesity PAIN / SYMPTOM PRESENTATION: Location: bilateral upper trap and upper back between shoulder blades Character: ache, tightness Frequency: constant Intensity: Best 2-3/10 Worst 5-6/10 Current 4-5/10 Pattern: none PAIN / SYMPTOMS ARE AGGRAVATED BY: none PAIN / SYMPTOMS ARE EASED BY: Tylenol, Ibuprofen, medication prescribed by PA SPECIFIC QUESTIONS RELATED TO THE PATIENTS CHIEF COMPLAINT: Medical screening performed. Screening positive for: occasional numbness/tingling in bilateral hands/fingers not due to any positioning/activity, headaches, occasional dizziness Screening negative for: weakness, night pain, history of cancer, loss of bowel/bladder control, GI Symptoms, abdominal pain, recent unexplained weight loss, blurred vision. 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) Leisure: play with child PRIOR FUNCTIONAL LEVEL: no limitations POTENTIAL HOME OR COMMUNITY BARRIERS: none CURRENT / PREVIOUS INTERVENTION(S) MD TREATMENT: Referral to physical therapy DIAGNOSTIC TESTS / RESULTS: none RELIEVING ACTIVITIES / SELF CARE: Tylenol, Ibuprofen PREVIOUS / CURRENT THERAPIES FOR CURRENT CHIEF COMPLAINT: Chiropractor- not beneficial in reducing symptoms DEMOGRAPHICS LIVING ENVIRONMENT: private home SOCIAL SUPPORT: significant other EMPLOYMENT STATUS / JOB 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 FUNCTIONAL QUESTIONNAIRES TEST: NDI SCORE: 32% FALLS SCREEN NA - Patient is less than 65 years of age OBJECTIVE OBSERVATION: Presentation: Patient presents in no acute distress. Posture: Static: Patient demonstrates moderate rounded shoulders and forward head posture. Dynamic: Patient demonstrates upper trap compensation with scapular retraction. RANGE OF MOTION: Active: Cervical ROM WNL all directions, reports of bilateral upper trap tightness with flexion and right sided tightness/pain with right rotatino and right side bending. 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 Tenderness with palpation to C6-[address] junction[address] Joint Specific Special Tests: Spurlings (radiculopathy) ( - ) Distraction (radiculopathy) ( - ) Compression (radiculopathy) ( - ) Transverse ligament stress test (instability) ( - ) Lateral shear test (upper cervical instability) ( - ) NEUROLOGICAL TESTS: Myotome Testing: WNL Sensation Testing: WNL Deep Tendon Reflexes: not tested- not indicated NEUROMOTOR DEVELOPMENT AND SENSORY INTEGRATION: WNL/WFL (Observed during evaluation) VENTILATION, RESPIRATION, AND CIRCULATION: WNL/WFL (At rest and with activity) ASSESSMENT PHYSICAL THERAPY DIAGNOSIS: Signs and symptoms consistent with: Postural neck and upper back pain and headaches presenting with upper trap and levator scapula tightness and soft tissue restriction, thoracic hypomobility with limited extension, decreased cervical and scapular stabilization, and decreased postural strength limiting daily, leisure and work activities. Patient requires skilled Physical Therapy intervention for the following impairments: Pain, flexibility limitations, strength/endurance limitations, poor posture, joint hypomobility, muscle imbalance, soft tissue mobility limitations, strength/endurance limitations, deconditioning These impairments are limiting the patient's ability to perform the following functional activities:daily, leisure and work activities CLAIMS BASED OUTCOME REPORTING NA PLAN OF CARE Skilled physical therapy interventions and plan to achieve goals and expected outcomes: Patient education to inform, educate, and/or train patients, families, significant others, and caregivers to promote and optimize physical therapy services. Coordinate, communicate, and document to ensure the patient receives appropriate, comprehensive, andefficient quality care. PROCEDURAL INTERVENTIONS: Modalities to: alleviate pain and/or edema, increase tissue flexibility Therapeutic Exercise to develop: strength and endurance, flexibility, joint mobility Manual Therapy to: improve joint mobility, improve soft tissue mobility, decrease pain Neuromuscular Reeducation to improve: posture, movement Education in Self-Care / Home Management to include instruction in: joint protection principles, symptom control techniques Therapeutic Activities to: improve functional performance in daily activities, work activities, ANTICIPATED GOALS AND EXPECTED OUTCOMES: Cervical Spine - Neck Disability Index: Minimal clinically important difference of 19% in 8 weeks. Patient to demonstrate ability to lift (household items) without restriction or increased symptoms within 8 week(s). Patient will be able to sleep without waking due to pain within 8 weeks. Patient will be able to perform homemaking / yard work activities (without restriction or increased symptoms) in 8 week(s). Patient will be able to perform all required job duties (without restriction or increased symptoms) in 8 week(s). Patient will be independent and safe with home exercise / self-care program in 2 week(s). Patient will have a good working knowledge of posture principles / joint protection in 4 week(s). Patient will report at least 75% improvement in 8 week(s). Rehab potential for achieving goals and expected outcomes: good Assessment will be ongoing with changes in treatment as indicated. Benefits/risks/alternatives to treatment have been reviewed and the patient/home health care provider has been instructed to contact this office if they have any questions or concerns. This plan of care has been discussed with the patient/home health care provider and the patient/home health care provider is in agreement. Frequency / Duration: Patient will be seen 2 session(s) every week(s) for 8 weeks for a total of 16 visits. I certify that the above rehabilitation services are required and authorized by [place], and that the patient's plan will be reviewed at 8 weeks. Certifying Provider Signature: per electronic co-sign Date: Electronic Date per Co-sign TODAYS TREATMENT: Initial Evaluation. Therapeutic Exercise: 18 minutes Supine chin tuck with gentle retraction 5 sec hold x 10 reps, 2x/day Green TB resisted row x 20 reps, 1x/day- cues to avoid upper trap compensation and forward head position Seated scapular retractions x 10 reps, often during day Seated chin tucks x 10 reps, 2x/day Upper trap stretch 30 sec x 2-3 reps, 2-3x/day Levator scapula stretch 30 sec x 2-3 reps, 2-3x/day POST TREATMENT RESPONSE: No immediate change in symptoms. Patient demonstrates good understanding ofHEP and is able to perform all exercises without increased symptoms. FOCUS NEXT SESSION WILL BE ON: patient education, pain relief, soft tissue mobility, joint mobility,flexibility, and strength/endurance including: ultrasound, STM/IASTM, TPR, manual stretching, SOR, thoracic mobilizations, thoracic extension exercises and self mobilization, progress scapular and cervi huma stabilization. TOTAL VISIT TIME: 45 minutes PLATFORM ENGINEER PRESENT NA MULTIDISCIPLINARY PATIENT / FAMILY EDUCATION RECORD Department: Physical Therapy Readiness to Learn: Ability to understand verbal and written instructions Specific Barriers to Learning: None Referrals: None Learning Needs: Rehabilitation techniques to improve functional independence Who: Patient How: Demonstration, Verbal and Written Instruction Response: Appropriate verbal response, asked questions, demonstrated ability, verbalized recall / understanding. Electronically Signed By: DEV WANG PT On: 11/05/2014 09:54 AM Modified by and Electronically Signed by: DEV WANG PT On: 11/05/2014 09:45 AM Co-Signed By: RSOALIND MONACO PA-C On: 11/05/2014 12:11 PM Source: [employer] Document Id: [id number] documented in this encounter Miscellaneous Notes Miscellaneous - Conversion, Historical Provider Ser - 11/08/2014 8:03 AM CDT Coding Summary-Paper Based CODING DATE: 11/08/2014 FINAL [facility] STATUS: Still Patient/Expected to Rtn Oupt [facility] [place] PAYOR: [employer] ADMIT DX: V57.1 Care Involving Other Physical Therapy REASON FOR VISIT DX: V57.1 Care Involving Other Physical Therapy FINAL DX: PRINCIPAL: V57.1 Care Involving Other Physical Therapy SECONDARY: 784.0 Headache 723.1 Cervicalgia 728.89 Other Disorder of Muscle, Ligament, and Fascia PROCEDURES DOCTOR NAME DATE NOTE: The code number assigned matches the documented diagnosis and / or procedure in the patient's chart. However, the narrative phrase printed from the coding software may appear abbreviated, or result in slightly different terminology. Revised Coded By: ADELINA ZENG Revised Date Saved: 11/08/2014 08:03 am Source: [facility] POWERCHART Document Id: [id number] documented in this encounter Plan of Treatment Scheduled Procedures Name Priority Associated Diagnoses Date/Time COLONOSCOPY Diarrhea documented as of this encounter Visit Diagnoses Not on filedocumented in this encounter Additional Health Concerns Assessment Noted Time PHQ-9 Depression Total Score: 18 05/02/2014 9:45 AM CD T documented as of this encounter
--- OUTSIDE RECORDS SUMMARY | 2022-06-29 09:32 | XMS_ITS | Encounter Summary ---
:1985 Author Organization [facility] Address [address] [place] [address] Care Team Providers Name Role Phone Unavailable Primary Care Provider Unavailable Encounter Details Date Type Department Care Team Description 01/15/2016 Hospital Encounter HX [facility] Kyle Colmenares M .D., M.P.H. [address] [place], [place] [phone] (Wo rk) Social History [...] How often do you attend christianity or shinto More than 4 time s per year [...] documented as of this encounter Nursing Notes Tammy Hinds R.N. 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 No significant health history. MMR, Varicella titers and quantiferon ordered. Electronically Signed By: TAMMY HINDS RN On: 01/15/2016 10:21 AM Source: [facility] POWERCHART Document Id: [id number] documented in this encounter Plan of Treatment Scheduled Procedures Name Priority Associated Diagnoses Date/Time COLONOSCOPY Diarrhea documented as of this encounter Procedures Procedure Name Priority Date/Time Associated Diagnosis Comme nts QUANTIFERON-TB GOLD Routine 01/15/2016 10:39 AM R esults for this PLUS, B CDT procedure are i n the results section. MEASLES (RUBEOLA) Routine 01/15/2016 10:39 AM Res ults for this AB, IGG CDT procedure are i n the results section. RUBELLA ANTIBODIES, Routine 01/15/2016 10:39 AM R esults for this IGG CDT procedure are i n the results section. VARICELLA-ZOSTER Routine 01/15/2016 10:39 AM Resu lts for this AB, IGG, S CDT procedure are i n the results section. MUMPS AB, IGG Routine 01/15/2016 10:39 AM Results for this CDT procedure are i n the results section. documented in this encounter Results QuantiFERON-TB Gold In-Tube, B (01/15/2016 10:39 AM CDT) P athologist Signature HX Negative Negative POWERCHART M.Tuberculos-M piyush HXTB Ag 0.00 INTUML POWERCHART Value-[place] Comment: ADDITIONAL INFORMATIO N This is a qualitative test. The TB antig en IU/mL value is required for documentation on certain go vernment reporting forms (e.g., Form I-693), but this value should not be used to monitor disease progression or respon se to therapy. Diagnosing or excluding tuberculosis dis ease, and assessing the probability of LTBI, require a combi nation of epidemiological, historical, medical, an d diagnostic findings that should be taken into accou nt when interpreting QuantiFERON-TB results. Test Performed [facility]: [facility] [address] [place], [place] [address] Dark Room Attendant: Rubio Marshall II, M.D., Ph.D. Specimen (Source) Anatomical Collection Method Collection Time Re ceived Time Location / / Volume Laterality Blood 01/15/2016 10:39 AM CDT Kyle Coleman M.D., M.P.H. LAB MICROBIOLOGY - BLOOD O BOBBY Performing Organization Address [facility] Phon e Number POWERCHART Mumps Ab, IgG (01/15/2016 10:39 AM CDT) P athologist Signature Mumps Ab, IgG, Positive POWERCHART S Comment: Results suggest response to immunization or prior exposure to the virus. REFERENCE VALUE------ Vaccinated: Positive (>=1.1 AI) Unvaccinated: Negative (<=0.8 AI) Mumps Ab, IgG, S 3.3 POWERCHART Comment: Test Performed by: [facility] [place] [address] Dark Room Attendant: Rubio Marshall II, M.D., Ph.D. Specimen (Source) Anatomical Collection Method Collection Time Re ceived Time Location / / Volume Laterality Blood 01/15/2016 10:39 AM CDT Kyle Coleman M.D., M.P.HBrittaney LAB MICROBIOLOGY - BLOOD O BOBBY Performing Organization Address [facility] Phon e Number POWERCHART Rubella Antibodies, IgG (01/15/2016 10:39 AM CDT) P athologist Signature HX Rubella Positive POWERCHART [facility] Comment: Results suggest response to immunization or prior exposure to the virus. REFERENCE VALUE------ Vaccinated: Positive (>=1.0 AI) Unvaccinated: Negative (<=0.7 AI) Rubella IgG Antibody Index 1.2 POW ERCHART Comment: Test Performed by: [place] [id number] Dark Room Attendant: Rubio Marshall II, M.D., Ph.D. Specimen (Source) Anatomical Collection Method Collection Time Re ceived Time Location / / Volume Laterality Blood 01/15/2016 10:39 AM CDT Kyle Coleman M.D., M.P.H. LAB MICROBIOLOGY - BLOOD O BOBBY Performing Organization Address [facility] Phon e Number POWERCHART Measles (Rubeola) Ab, IgG (01/15/2016 10:39 AM CDT) P athologist Signature Measles Positive POWERCHART (Rubeola) Ab, IgG, S Comment: Results suggest response to immunization or prior exposure to the virus. REFERENCE VALUE------ Vaccinated: Positive (>=1.1 AI) Unvaccinated: Negative (<=0.8 AI) Measles IgG Antibody Index 1.4 POW ERCHART Comment: Test Performed by: [address] [address] Dark Room Attendant: Rubio Marshall II, M.D., Ph.D. Specimen (Source) Anatomical Collection Method Collection Time Re ceived Time Location / / Volume Laterality Blood 01/15/2016 10:39 AM CDT Kyle Coleman M.D., M.P.H. LAB MICROBIOLOGY - BLOOD O BOBBY Performing Organization Address [facility] Phon e Number POWERCHART Varicella-Zoster Antibody, IgG (01/15/2016 10:39 AM CDT) P athologist Signature Varicella-Zost Negative POWERCHART er Ab, IgG, S Comment: REFERENCE VALUE------ Vaccinated: Positive (>=1.1 AI) Unvaccinated: Negative (<=0.8 AI) Varicella-Zoster Ab, IgG, S 0.2 PO WERCHART Comment: Test Performed by: [place] [address] Dark Room Attendant: Rubio Marshall II, M.D., Ph.D. Specimen (Source) Anatomical Collection Method Collection Time Re ceived Time Location / / Volume Laterality Blood 01/15/2016 10:39 AM CDT Kyle Coleman M.D., M.P.H. LAB MICROBIOLOGY - BLOOD O RDERARISA Performing Organization Address City/State/ZIP Code Phon e Number POWERCHART documented in this encounter Visit Diagnoses Not on filedocumented in this encounter Additional Health Concerns Assessment Noted Time PHQ-9 Depression Total Score: 11 12/13/2014 9:50 AM CD T documented as of this encounter
--- OUTSIDE RECORDS SUMMARY | 2022-06-29 09:32 | XMS_ITS | Encounter Summary ---
:1985 Author Organization [facility] Address [address] [place] [address] Care Team Providers Name Role Phone Unavailable Primary Care Provider Unavailable Encounter Details Date Type Department Care Team Description 04/22/2015 Hospital Encounter HX [facility] Nicci Gutiérrez D.O. [address] [place] [address] (Wo rk) Social History Tobacco [...] How often do you attend protestant or catholic More than 4 time s [...] Sign Reading Time Taken Comments Blood Pressure 124/98 04/22/2015 10:39 AM CDT Pulse 68 04/22/2015 10:39 AM CDT Temperature - - Respiratory Rate - - Oxygen Saturation - - Inhaled Oxygen Concentration - - Weight 141 kg (311 lb 8.2 oz) 04/22/2015 10:39 AM CDT Height 157 cm (5' 1.81) 04/22/2015 10:39 AM CDT Body Mass Index 57.32 04/22/2015 10:39 AM CDT documented in this encounter Consult Notes Mariaelena Gutiérrez D.O. - 04/22/2015 10:52 AM CDT Consult Note CHIEF COMPLAINT/REASON FOR VISIT consult Denys in [place]/migraine headaches daily REFERRAL SOURCE Trev Mcfarlane MD HISTORY OF PRESENT ILLNESS The patient is a 29-year-old woman who presents for a diagnostic opinion and treatment recommendations for headaches, follow up brain MRI showing cyst. The patient presents with 3 years of increasing headaches. There was no antecedent injury or illness. She has daily headaches for at least 3 months and 5-6 times a month has a severe headache. Severe headaches last several hours up to a couple of days. The pain is frontal, pounding, sometimes dull, sometimes associated with sensitivity to light, sound, nausea. She feels she has had headaches for so long that she has gotten used to it. She denies visual change with headaches and had recent eye normal exam. Alleviating factors: sumatriptan, toradol Exacerbating factors:movement Headache triggers: ? stress, ? sleep - h/o hypersomnolence - scheduled for sleep study. Current headache preventive(s): none Current headache abortive(s): sumatriptan provides temporary relief. Headache preventatives that have been tried in past: amitriptyline x 1 month did not help. She thinks she may have been on propranolol at one point but is not sure. Headache abortives that have been tried in past: exedrine, aleve, ibuprofen Sleep: As above Caffeine intake: has cut back to 1-2 per day or less. Water intake: Drinking more water. ER/urgent visits for headache: none, but has been seen in clinic for toradol inj. which provides temporary relief Missed work/school for headache: none She has had numbness in the fingers and toes for the last few months. She has had some urinary frequency due to increasing water intake but thinks she may be . She and her have been trying. She is willing to hold off on trying for to get headaches under control. Social history: . 7 year old son. 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 Rarely drinks alcohol. Current smoker. Family history: She has a maternal cousin with severe migraines. MEDICATIONS EpiPen Auto-Injector 0.3 mg injectable kit, 0.3 mg, IM, As Directed, PRN, 3 refills, * ibuprofen 200 mg oral tablet, See Instructions, 3-4 tabs prn SUMAtriptan 50 mg oral tablet, 50 mg, 1 tab(s), Take 1 tablet at onset of headache. Repeat after two hours if needed., PO, As Directed, PRN, 1 refills, * traZODone 50 mg oral tablet, 50 mg, 1 tab(s), PO, Daily, 3 refills, * Vicodin 5 mg-300 mg oral tablet, 1 tab(s), PO, q6hr, PRN, 0 refills, * Zoloft 100 mg oral tablet, 150 mg, 1.5 tab(s), Discontinue Velafaxine, PO, Daily, 3 refills, * * indicates non-compliance ALLERGIES penicillins PAST MEDICAL HISTORY Chronic Abuse Tobacco Smoking NOS Dysthymic Disorder Headache Headache Migraine Historical PROCEDURES/SURGICAL HISTORY Pap smear (01/25/2013), Pap smear (01/25/2013). SOCIAL HISTORY Date Time: 04/22/2015 10:39 Tobacco: Smoking Status: Current every day smoker Exposure: Patient smokes Alcohol: Use: [...] Anesthesia; Bleeding disorder; Hearing loss SYSTEMS REVIEW Review of systems: Constitutional: negative; Neurological: As above; Psychiatric: Sertraline, trazodone haven't helped; Eyes: Negative; ENT: Negative for dysarthria, dysphagia; Pulmonary: Negative forshortness of breath; Cardiovascular: Negative for chest pain, irregular heart rhythm; GI: as above.; : As above; Endocrine: Negative; Musculoskeletal: Chiropractic not helpful VITAL SIGNS T: 35.8 ??C (Core) HR: 68 BP: 124 / 98 HT: 157 cm WT: 141.3 kg BMI: 57.32 PHYSICAL EXAMINATION General: Patient is alert, pleasant, well-groomed. Mental status: Recent and remote memory are grossly normal. Speech and language are normal. Fund ofknowledge is normal. Behavior is normal. Affect is euthymic. Eyes: Funduscopic examination is negative for disc edema Neurologic: Cranial nerves: Pupils are equal, round, reactive to light. Visual dick are full. Extraocular movements are conjugate and there is no nystagmus. Face is symmetric. Palate elevates symmetrically. Tongue is midline. shoulder shrug is symmetric. Motor: Normal bulk, tone, strength, and deep tendon reflexes (with reinforcement) Babinski: Absent Coordination: [id number] is normal. AMRs are normal. Sensation: Vibratory sensation present in both feet. Gait: No difficulty rising from a seated to standing position. Stride length, heel strike, and arm swing are normal. Able to heel, toe, tandem walk within normal limits. Romberg: Negative Cardiovascular: Regular rate and rhythm, no murmur Lungs: Clear DIAGNOSTIC RESULTS Reason For Exam Choridal fissure cyst, left temporal lobe Report 20-Mar-2015 10:33:00 Exam: MRI Hd wo&w Indications: Choridal fissure cyst, left temporal lobe 20-Mar-2015 10:52 CA EXAM: MRI Brain without and with IV contrast COMPARISON: CT neck with IV contrast 03/05/2015. 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 This corresponds to the low-density lesion noted on CT 03/05/2015. This should be of no clinical significance. Small retention cyst or polyp left maxillary sinus is unchanged. The examination is otherwise negative. No evidence of intracranial hemorrhage, mass, pathologic contrast enhancement, restricted diffusion or infarct. Marcio Briceno MD. [phone] 20-Mar-2015 10:52 [1] IMPRESSION/REPORT/PLAN Migraine Headache ([place]) Chronic NOS The patient is a 29-year-old woman with chronic daily headache with migraine headaches occurring fiber 6 days out of each month for more than 3 months. She has had increasing headaches over the last 3years. She has a normal neurological examination. Her brain MRI is normal apart from a neuroepithelial cyst within the left choroidal fissure. I reviewed the patient's MRI. I counseled the patient thatthe cyst is benign, incidental and not causing any of her symptoms. There is no need for follow-up imaging. She is scheduled to have a sleep study in [place] to evaluate whether this may be a contributing factor to her reported daytime hypersomnolence as well as the headaches. Nevertheless, the headaches are consistent with migraine chronic migraine. Obesity, smoking, caffeine intake are possible other contributing factors. There is a family history of migraine. I explained the patient that there is no medication that I could safely prescribed to her if she isplanning a . The patient told me that she would check a test prior to starting any new medication. She explained that she plans to hold off on trying to get until her headaches are under better control. For headache prevention the following was prescribed: Topiramate starting at 25 mg once a day for 3days, then increase to 25 mg twice a day for 3 days, then increase to 25 mg in the morning 50 mg at bedtime for 3 days, then increase to 50 mg twice daily. Potential side effects were discussed. The patient was also counseled on lifestyle modifications that can reduce headaches including adequate water intake 09-10 glasses), minimizing or discontinuing the consumption of caffeinated beverages, and adequate sleep. For headache the following was prescribed: SUMAtriptan (IMITREX) 100 mg tablet at onset ofheadache, may repeat in 2 hours if needed, may combine with Aleve as directed if needed. Potential side effects were discussed. The patient was counseled on the importance of limiting the use of headache abortives to no more than 2 or 3 days a week to minimize potential side effects and medication overuse headaches. The patient was asked to keep a headache diary and bring it in at the time of follow up. Ordered: topiramate, 50 mg = 2 tab(s), PO, Daily, 1 tab at bedtime x 3 days, then 1 2x day x 3 days, then 1 in AM and 2 HS x 3 days, then 2 tabs 2x day, # 60 tab(s), 5 Refill(s), Maintenance, Pharmacy: [facility] [id number] Orders: SUMAtriptan, 100 mg = 1 tab(s), PO, As Directed, PRN Migraine headache, Take 1 tablet at onset of headache. Repeat after two hours if needed., # 18 tab(s), 5 Refill(s), Maintenance, Pharmacy: [facility] [id number] FOOTNOTES [1]MR Brain w/ + w/o contrast; CATHI MONTIEL 03/20/2015 10:30 CDT Electronically Signed By: MARIAELENA GUTIÉRREZ DO On: 04/22/2015 12:01 PM Source: [facility] Document Id: [id number] documented in this encounter Nursing Notes Mariaelena Gutiérrez D.O. - 04/22/2015 11:30 AM CDT Ambulatory Patient Education The following Patient Education Materials have been given to the patient: Patient Education Materials: Source: [facility] Document Id: [id number] documented in this encounter Miscellaneous Notes Miscellaneous - Mariaelena Gutiérrez D.O. - 04/22/2015 11:30 AM CDT Ambulatory Patient Summary [facility] [address], [place] [place], [place] [id number] Visit Information Name: PUNEET FRIED [facility] Number: [id number] Current Date: 04/22/2015 11:30:34 Physicians Attending Provider: MARIAELENA GUTIÉRREZ DO Primary Care Provider: ALISON LOREDO PA-C FARIHA PUNEET ALVARADO has been given the following list of follow-up instructions, medication list, and patient education materials: Follow-up Instructions With: Address: When: MARIAELENA GUTIÉRREZ [address] [place] [address] [place] [address] [employer] (1) In 3 months 07/22/2015 Comments: Do not take sumatriptan or topiramate if you are . Dring 9-10 glasses of water per day. Limit caffeine to no more than 1 per day. You may take sumatriptan with 1 aleve to increase effectiveness. Keep a headache diary. Your Medications Here is a list of your medications. It is important to take your medications as directed. Use a pillbox or chart to help remind you to take your medications. Please let your doctor or nurse know if you have problems taking your medications. Medication/Strength How to Take Indications/Special Instructions/Comments/Notes for Patient Medication Changes/Routing ibuprofen (ibuprofen 200 mg oral tablet) See Instructions 3-4 tabs prn SUMAtriptan (SUMAtriptan 100 mg oral tablet) 1 Tablet(s), Oral, as directed as needed for Migraine headache Take 1 tablet at onset of headache. Repeat after two hours if needed. This is a CHANGE Rout[address]to [place] [address] [place] [id number] topiramate (topiramate 25 mg oral tablet) 2 Tablet(s), Oral, once a day 1 tab at bedtime x 3 days, then 1 2x day x 3 days, then 1 in AM and 2 HS x 3 days, then 2 tabs 2x day New Routed to [place] [address] [place] [id number] Stop Taking the Following Medications: EPINEPHrine (EpiPen Auto-Injector 0.3 mg injectable kit) HYDROcodone-acetaminophen (Vicodin 5 mg-300 mg oral tablet) sertraline (Zoloft 100 mg oral tablet) traZODone (traZODone 50 mg oral tablet) Medication list as of 04-22-15 11:30 Attention: If you have any medications at home that are not on this list, DO NOT take them until youcontact your provider for clarification. Give a copy of your medication list to your primary care provider. Update your medication list any time medications or doses are changed and carry your medication list at all times in case of emergency. Electronically Signed By: MARIAELENA GUTIÉRREZ DO Signed On:22-APR-2015 11:29:21 Your Allergies & Intolerances Substance Reaction Symptoms [...] if you dont have one. Go to [email or web address] and click on Create Your Account. Then, follow the directions to complete the online form. Youll be asked for your [facility] number which you can find at the top of this document. Your Goals/Additional instructions: Source: [facility]ART Document Id: [id number] Miscellaneous - Mariaelena Gutiérrez D.O. - 04/22/2015 11:30 AM CDT Ambulatory Discharge Medication List [facility] [address], [address] [place], [place] [id number] Visit Information Name: PUNEET FRIED [facility] Number: [id number] Visit Date: 04/22/2015 11:30:32 Attending Provider: MARIAELENA GUTIÉRREZ DO Primary Care Provider: ALISON LOREDO PA-C PUNEET FRIED has been given the following list of medications: Your Medications It is important to take your medications as directed. Use a pill box or chart to help remind you to take your medications. Please let your doctor or nurse know if you have problems taking your medications. Medication/Strength How to Take Indications/Special Instructions/Comments/Notes for Patient Medication Changes/Routing ibuprofen (ibuprofen 200 mg oral tablet) See Instructions 3-4 tabs prn SUMAtriptan (SUMAtriptan 100 mg oral tablet) 1 Tablet(s), Oral, as directed as needed for Migraine headache Take 1 tablet at onset of headache. Repeat after two hours if needed. This is a CHANGE Rout[address]to [place] [address] [place] [id number] topiramate (topiramate 25 mg oral tablet) 2 Tablet(s), Oral, once a day 1 tab at bedtime x 3 days, then 1 2x day x 3 days, then 1 in AM and 2 HS x 3 days, then 2 tabs 2x day New Routed to [place] [address] [place] [id number] Stop Taking the Following Medications: EPINEPHrine (EpiPen Auto-Injector 0.3 mg injectable kit) HYDROcodone-acetaminophen (Vicodin 5 mg-300 mg oral tablet) sertraline (Zoloft 100 mg oral tablet) traZODone (traZODone 50 mg oral tablet) Medication list as of 04-22-15 11:30 Attention: If you have any medications at home that are not on this list, DO NOT take them until youcontact your provider for clarification. Give a copy of your medication list to your primary care provider. Update your medication list any time medications or doses are changed and carry your medication list at all times in case of emergency. Electronically Signed By: MARIAELENA GUITÉRREZ DO Signed On:22-APR-2015 11:29:21 Additional Information: Source: [facility] POWERCHART Document Id: [id number] Miscellaneous - Sima Mccormick, LiorPBrittaneyN. - 04/22/2015 10:39 AM CDT Adult Senior Quality Analyst Intake/History Adult Senior Quality Analyst Intake/History Entered On: 04/22/2015 10:47 CDT Performed On: 04/22/2015 10:39 CDT by SIMA MCCORMICK LPN Intake Chief Complaint : consult Lagalwar in [place]/migraine headaches daily Temperature Core : 35.8 DegC(Converted to: 96.4 DegF) (LOW) Peripheral Pulse Rate : 68 /min Systolic Blood Pressure : 124 mmHg Diastolic Blood Pressure : 98 mmHg (>HHI) NIBP Mean : 107 mmHg Height : 157 cm(Converted to: 5 ft 2 inch(es), 62 inch(es)) Actual Weight : 141.3 kg(Converted to: 311 lb 8 oz) Dosing Weight Clinic : 141.3 kg Clinic BSA : 2.48 Body Mass Index : 57.32 kg/m2 SIMA MCCORMICK LPN - 04/22/2015 10:39 CDT General Info Information Given By : Patient Preferred Communication Mode : Verbal Languages : Azerbaijani Is Patient Female and 13-50 no hysterectomy : Yes Status : Possible unconfirmed Are you ? : No SIMA MCCORMICK LPN - 04/22/2015 10:39 CDT Subjective Pain Symptoms : Yes SIMA MCCORMICK LPN - 04/22/2015 10:39 CDT Pain Scale Pain Scale Verbal 0-10 : Open SIMA MCCORMICK LPN - 04/22/2015 10:39 CDT Pain Pain Assessment Grid Pain 1 Location : Frontal Laterality : Bilateral Intensity : 6 Time Pattern : Constant Onset : Sudden Quality : Heavy, Pressure, Throbbing, Tightness Pain Radiation : No Aggravating Factors : Light, Movement, Noise Alleviating Factors : Massage SIMA MCCORMICK LPN - 04/22/2015 10:39 CDT Dependent Habits Tobacco Use/Currently Using : Yes Tobacco Use/Advised to Quit : Yes Exposure to Tobacco Smoke : Patient smokes Smoking Status : Current every day smoker SIMA MCCORMICK LPN - 04/22/2015 10:39 CDT Tobacco Use Grid Type : Cigarettes Cigarette Use Packs/Day : 0.5 SIMA MCCORMICK LPN - 04/22/2015 10:39 CDT Alcohol Use : No SIMA MCCORMICK LPN 04/22/2015 10:39 CDT Caffeine Use Grid Caffeine Use : Current Type : Coffee, Soft drinks Frequency : Occasionally SIMA MCCORMICK LPN - 04/22/2015 10:39 CDT Recreational Drug Use Grid Drug Use : None SIMA MCCORMICK LPN - 04/22/2015 10:39 CDT Source: [facility] Document Id: [id number]!54 documented in this encounter Plan of Treatment Scheduled Procedures Name Priority Associated Diagnoses Date/Time COLONOSCOPY Diarrhea documented as of this encounter Visit Diagnoses Not on filedocumented in this encounter Additional Health Concerns Assessment Noted Time PHQ-9 Depression Total Score: 11 12/13/2014 9:50 AM CD T documented as of this encounter
--- OUTSIDE RECORDS SUMMARY | 2022-06-29 09:32 | XMS_ITS | Encounter Summary ---
:1985 Author Organization [facility] Address [address] [place] [address] Care Team Providers Name Role Phone Unavailable Primary Care Provider Unavailable Encounter Details Date Type Department Care Team Description 03/05/2015 Hospital Encounter HX [facility] ED Joslyn nSyder M.D. [address] [place], [place] [phone] (Wo rk) Social History [...] How often do you attend voodoo or baptism More than 4 time s [...] Sign Reading Time Taken Comments Blood Pressure 154/87 03/05/2015 9:56 AM CDT Pulse 72 03/05/2015 9:56 AM CDT Temperature - - Respiratory Rate 18 03/05/2015 9:56 AM CDT Oxygen Saturation - - Inhaled Oxygen Concentration - - Weight 139 kg (306 lb 7 oz) 03/05/2015 6:09 AM CDT Height 157 cm (5' 1.81) 03/05/2015 9:56 AM CDT Body Mass Index 56.39 03/05/2015 6:09 AM CDT documented in this encounter Discharge Summaries Dawna Hart R.N. - 03/05/2015 10:42 AM CDT ED Depart Summary [facility] Emergency Department Clinical Discharge Summary PERSON INFORMATION Name PUNEET FRIED Age 29 Years 1985 12:00 AM Sex Female Language Macanese PCP ALISON MONACO PA-C Marital Status Single Visit Id Visit Reason Throat pain - Adult; Extreme Throat Pain Specialty Enc Type Emergency Med Service Emergency Medicine Referred by Track Group [facility] ED Discharge 03/05/2015 10:30 AM Tracking Id [id number] Checkout 03/05/2015 10:30 AM Checkin 03/05/2015 6:02 AM Acuity 3 -Urgent Dispo Type * Discharged to Home or Self Care Arrival 03/05/2015 6:02 AM Reg Status Complete LOS 000 04:28 Address: [address] [place] [phone] Comment: PROVIDER INFORMATION Provider Role Provider Contact Time JOSLYN SNYDER MD ED Provider 03/05/15 06:20 MAURICE HAYS AUTO DRIVER Nurse 03/05/15 06:20 JOSLYN SNYDER MD ED Provider 03/05/15 06:25 DAWNA HRAT AUTO DRIVER Nurse 03/05/15 07:32 DIAGNOSIS Abscess Peritonsillar Comment: PATIENT EDUCATION INFORMATION Instructions: PERITONSILLAR ABSCESS Follow up: Source: [facility] POWERCHART Document Id: [id number] Dawna Hart R.N. - 03/05/2015 10:42 AM CDT ED Discharge Instructions [address] [place] [address] Name: PUNEET FRIED Date of : 1985 12:00 AM Visit Date: 03/05/2015 6:02 AM [facility] Number: [id number] Address: [address] [place] [phone] Primary Care Provider: ALISON MONACO PA-C IMPORTANT: [facility] in [place] would like to thank you for allowing us to assist you with your healthcare needs. The following includes patient education materials and informationregarding your injury/illness. Diagnosis: Abscess Peritonsillar Follow-Up Instructions: Your Upcoming Appointments: Date Time Location Provider No Appointments found Patient Education Materials: Peritonsillar Abscess Your throat pain is due to an infection in and around the tonsils. This is due to a bacterial infection causing an abscess (collection of pus) to form around the tonsil. This abscess can cause severe pain when swallowing or trying to open your mouth wide. An early abscess may be treated with antibiotics alone. A larger abscess will require surgical drainage plus antibiotics. The bacteria causing this condition may be contagious. It can be spread by coughing, kissing or touching others after you touch your mouth or nose. It may produce a sore throat in others (not necessarily a peritonsillar abscess). Home Care: 1) Take your antibiotics until finished, even if you feel better after the first few days of treatment. This is very important to prevent later problems from this infection (such as heart or kidney disease). 2) If your symptoms are severe, rest at home for the first 2-3 days. 3) Children : Use Tylenol (acetaminophen) for fever, fussiness or discomfort. In infants over six months of age, you may use ibuprofen (Children's Motrin) instead of Tylenol. (Aspirin should never be used in anyone under 18 years of age who is ill with a fever. It may cause severe liver damage.) Adults : For muscle aching or throat pain, you may take ibuprofen (Advil, Motrin) or Tylenol (acetaminophen) unless another pain medicine was prescribed. [ NOTE : If you have chronic liver or kidney disease or ever had a stomach ulcer or GI bleeding, talk with your doctor before using these medicines.] (Aspirin should never be used in anyone under 18 years of age who is ill with a fever. It may causesevere liver damage.) 4) Throat lozenges or sprays (Chloraseptic and others) may help reduce throat pain. This is especially useful just before meals. 5) Gargle with warm salt water four times a day for the first two days. Dissolve 1/2 teaspoon of salt in 1 glass of hot water. Follow Up with your doctor or this facility as advised within 1-2 days. If you are treated with antibiotics alone, it is very important to be rechecked within 24 hours to be sure that the abscess is not getting bigger. Get Prompt Medical Attention if any of the following occur: -- Fever over 100.5? F (38.0? C) oral by the third day of treatment -- Throat pain, neck pain or headache that gets worse -- Unable to swallow liquids or take your medicine -- Trouble breathing or noisy breathing ?? [id number] [place] [address]. All rights reserved. This information is not [...] if you dont have one. Go to [email or web address] and click on Create Your Account. Then, follow the directions to complete the online form. Youll be asked for your [facility] number which you can find at the top of this document. ED Tests and Procedures: Order Status CT Neck w/ contrast Completed Beta hCG Qualitative Urine Completed Mononucleosis Screen Completed Discharge Prescriptions & Home Medications: Medication/Strength Dose Route Frequency Indications/Special Instructions/Comments/Notes azithromycin (Zithromax 250 mg oral tablet) 2 tablets on day 1, then 1 tablet on days 2-5 Oral as directed for 5 Days *azithromycin (Zithromax 250 mg oral tablet) 2 tablets on day 1, then 1 tablet on days 2-5 Oral as directed for 5 Days EPINEPHrine (EpiPen Auto-Injector 0.3 mg injectable kit) 0.3 mg Intramuscular as directed as needed for Other - per order comments Bee Sting *venlafaxine (venlafaxine 37.5 mg oral capsule, extended release) 37.5 mg Oral once a day 1 tab daily x 1 week. Increase to 2 tabs daily as tolerated. HYDROcodone-acetaminophen (Vicodin 5 mg-300 mg oral tablet) 1 tab(s) Oral every 6 hours as needed for Pain No more than 4,000mg acetaminophen/24hrs venlafaxine (venlafaxine 37.5 mg oral tablet, extended release) 37.5 mg Oral once a day 1 tab daily x 1 week. Then increase to 2 tabs daily as tolerated. SUMAtriptan (SUMAtriptan 50 mg oral tablet) 50 mg Oral as directed as needed for Migraine headache Take 1 tablet at onset of headache. Repeat after two hours if needed. ibuprofen (ibuprofen 200 mg oral tablet) See Instructions 3-4 tabs prn * You have let us know that you are not taking this medication as listed. Please talk with your primary care provider or the health care provider who prescribed the medication as soon as possible. Comment: Attention: If you have any medications at home not on this list, DO NOT take them until you contact your provider for clarification. Give a copy of your medication list to your primary care provider. Update your medication list any time medications or doses are changed and carry your medication list at all times in case of emergency. IMPORTANT: We examined and treated you today on an emergency basis only. This was not a substitute for, or an effort to provide, complete medical care. In most cases, you must let your doctor check youagain. Tell your doctor about any new or lasting problems. We cannot recognize and treat all injuries or illnesses in one Emergency Department visit. If you had special tests, such as EKG's or X- rays, we will review them again within 24 hours. We will call you if there are any new suggestions. Please follow the instructions above carefully. If you are being transferred to another facility your followup plan of care will be determined by the receiving facility. If you are a patient that is being discharged from the Emergency Department after receiving narcotics or other medications that may impair your judgment you may be a risk to yourself or others if you operate a motor vehicle. We recommend that you arrange a ride home with a responsible republican. FARIHA Cornejo AMANDA KAY , or responsible republican have received this information and my questions have been answered. I have discussed any challenges I see with this plan with the nurse or physician. Patient Signature or Responsible Constitution Party/Relationship Date Time Provider Signature Date Time IMPORTANT: We examined and treated you today on an emergency basis only. This was not a substitute for, or an effort to provide, complete medical care. In most cases, you must let your doctor check youagain. Tell your doctor about any new or lasting problems. We cannot recognize and treat all injuries or illnesses in one Emergency Department visit. If you had special tests, such as EKG's or X- rays, we will review them again within 24 hours. We will call you if there are any new suggestions. Please follow the instructions above carefully. If you are being transferred to another facility your followup plan of care will be determined by the receiving facility. If you are a patient that is being discharged from the Emergency Department after receiving narcotics or other medications that may impair your judgment you may be a risk to yourself or others if you operate a motor vehicle. We recommend that you arrange a ride home with a responsible republican. FARIHA Cornejo AMANDA KAY , or responsible republican have received this information and my questions have been answered. I have discussed any challenges I see with this plan with the nurse or physician. Patient Signature or Responsible Constitution Party/Relationship Date Time Provider Signature Date Time Source: [employer] Document Id: [id number] documented in this encounter ED Notes Dawna Hart R.N. - 03/05/2015 10:41 AM CDT ED Disposition Summary ED Disposition Summary Entered On: 03/05/2015 10:41 CDT Performed On: 03/05/2015 10:41 CDT by DAWNA HART RN ED Disposition Summary Accompanied By : Alone Mode of Discharge : Ambulatory Transportation : Private vehicle Discharge From ED With : Home Med List Printed Discharge Instructions Given to Patient : Yes Patient Status at Discharge from ED : Improved DAWNA HART RN - 03/05/2015 10:41 CDT Source: [employer] Document Id: [id number] CDT!8 Dawna Hart R.N. - 03/05/2015 9:56 AM CDT ED Pain Assessment ED Pain Assessment Entered On: 03/05/2015 9:56 CDT Performed On: 03/05/2015 9:56 CDT by DAWNA HART RN Pain Assessment Pain Symptoms : Yes DAWNA HART RN - 03/05/2015 9:56 CDT Pain Scale Pain Scale Verbal 0-10 : Open DAWNA HART RN - 03/05/2015 9:56 CDT Pain Pain Assessment Grid Pain 1 Location : Throat Intensity : 9 DAWNA HART RN - 03/05/2015 9:56 CDT Source: [employer] Document Id: [id number] CDT!10 Dawna Hart R.N. - 03/05/2015 8:59 AM CDT ED Nurse Reassess ED Nurse Reassess Entered On: 03/05/2015 8:59 CDT Performed On: 03/05/2015 8:59 CDT by DAWNA HART RN Pain Assessment Pain Symptoms : Yes DAWNA HART RN - 03/05/2015 8:59 CDT Pain Scale Pain Scale Verbal 0-10 : Open DAWNA HART RN - 03/05/2015 8:59 CDT Pain Pain Assessment Grid Pain 1 Location : Throat Intensity : 9 DAWNA HART RN - 03/05/2015 8:59 CDT Source: [employer] Document Id: [id number] CDT!10 Dawna Hart R.N. - 03/05/2015 7:30 AM CDT ED Treatments and Procedures ED Treatments and Procedures Entered On: 03/05/2015 7:32 CDT Performed On: 03/05/2015 7:30 CDT by DAWNA HART RN Peripheral IV Peripheral IV Assess/Intervention Grid Peripheral IV #1 IV Activity : Start Number of Attempts : 1 Date of Insertion : 03/05/2015 CDT IV Site : Antecubital Laterality : Left Catheter Size : 18 Catheter Type : Safety intima Site Condition : No complications DAWNA HRAT RN - 03/05/2015 7:30 CDT Source: [employer] Document Id: [id number] CDT!12 Dawna Hart R.N. - 03/05/2015 7:27 AM CDT ED Pain Assessment ED Pain Assessment Entered On: 03/05/2015 7:27 CDT Performed On: 03/05/2015 7:27 CDT by DAWNA HART RN Pain Assessment Pain Symptoms : Yes DAWNA HART RN - 03/05/2015 7:27 CDT Pain Scale Pain Scale Verbal 0-10 : Open DAWNA HART RN - 03/05/2015 7:27 CDT Pain Pain Assessment Grid Pain 1 Location : Throat Intensity : 8 DAWNA HART RN - 03/05/2015 7:27 CDT Source: [facility] Newsle Document Id: [id number] CDT!10 Joslyn Snyder M.D. - 03/05/2015 6:26 AM CDT Throat pain - Adult Patient: PUNEET FRIED Age: 29 years Sex: Female : 1985 Author: JOSLYN SNYDER MD Attachments: None Associated Diagnosis: Abscess Peritonsillar Basic Information Additional information: Chief Complaint from Nursing Triage Note : Chief Complaint Description 03/05/2015 6:14 CDT Chief Complaint Description see triage 03/05/2015 6:09 CDT Chief Complaint Description Pt presents with sore throat. Diagnosed February 27 with strep was seen in ER March 02 again and changed antibiotics. Pain continues, hard to swallow and swollen. Tonsils huge more on left then right side. . History of Present Illness 29-year-old female presents to the emergency room complaining of throat pain. The symptoms began about a week ago. She was seen in emergency room in [place] where she was diagnosed with strep throat and was given Keflex. The symptoms did not improve so she was seen 2 days later and the antibiotic waschanged to azithromycin. She was also given prednisone 40 mg a day. Her symptoms have not improved and she now presents here again as she his experiencing a lot of pain and has difficulty sleeping. Shedenies any respiratory difficulties nor swallowing difficulties. He states he does hurt a little bitopen upper jaw but is able to do so completely. She states it feels like there is a fluctuant area on the left side over jaw. . Review of Systems Constitutional symptoms: Fever. Skin symptoms: Negative except as documented in HPI. Eye symptoms: Negative except as documented in HPI. ENMT symptoms: Sore throat. Respiratory symptoms: Negative except as documented in HPI. Cardiovascular symptoms: Negative except as documented in HPI. Allergy/immunologic symptoms: Negative except as documented in HPI. Health Status Allergies: Allergic Reactions (Selected) Severity Not Documented Penicillins- No reactions were documented.. Past Medical/ Family/ Social History Medical history: Negative. Physical Examination Vital Signs: Vital Signs 03/05/2015 6:09 CDT Temperature Core 36.5 DegC Peripheral Pulse Rate 95 /min Respiratory Rate 18 /min SpO2 97 % Systolic Blood Pressure 170 mmHg >HHI Diastolic Blood Pressure 107 mmHg >HHI Mean Arterial Pressure 128 mmHg . General: Alert and no acute distress. Skin: Warm and dry. Head: Normocephalic. Neck: Supple, trachea midline and Again there is some swelling laterally on the left side. . Eye: Pupils are equal, round and reactive to light, normal conjunctiva and vision grossly normal. Ears, nose, mouth and throat: Tympanic membranes clear, Her tonsils are markedly enlarged. They are not kissing. No significant exudate. No trismus. Palpation over the inferior area over the angle of the jaw is swollen but somewhat difficult to assess as she is morbidly obese. and Mouth: Normal. Respiratory: Lungs are clear to auscultation, respirations are non-labored, breath sounds are equal and Symmetrical chest wall expansion. Cardiovascular: Regular rate and rhythm, No murmur, Normal peripheral perfusion and No edema. Chest wall: No tenderness. Medical Decision Making OrdersLaunch Orders Laboratory: Mononucleosis Screen (Order Processing): Stat, 03/05/2015 6:28 CDT Beta hCG Qualitative Urine (Order Processing): Routine, 03/05/2015 6:27 CDT, Once, Urine Radiology: Soft Tissue Neck CT w/ contrast (Order Processing): 03/05/2015 6:27 CDT, r/o peritonsillar abscess, Stat, Patient Bed, Once, 03/05/2015 6:27 CDT, [facility] ED, Launch Orders Pharmacy: [email or web address] (Order Processing): 50 mcg, IV Push, Once, Launch Orders Pharmacy: [facility] (Delete Processing): 50 mcg, 1 mL, IV Push, Once, Launch Orders Pharmacy: ketor[facility] (Order Processing): 30 mg, IV Push, Once. Impression and Plan Diagnosis Abscess Peritonsillar (Discharge, Emergency medicine, Medical) Calls-Consults -03/05/2015 10:14:00 , ENT, phone call, recommends Send the patient to them for a drainage procedure. Plan Condition: Stable. Disposition: Discharged: Time 03/05/2015 10:15:00, The patient was told to go to [place] [facility] for further management and treatment. . Patient was given the following educational materials: PERITONSILLAR ABSCESS. Counseled: Patient, Regarding diagnosis, Regarding diagnostic results, Regarding treatment plan, Regarding prescription, Patient indicated understanding of instructions. Orders: Launch Orders Patient Care: Discharge ED Patient (Order Processing): 03/05/2015 10:18 CDT, Once. Electronically Signed By: JOSLYN SNYDER MD On: 03/05/2015 10:19 AM Modified by and Electronically Signed by: JOSLYN SNYDER MD On: 03/05/2015 10:19 AM Source: [facility] POWERCHART Document Id: [id number]} Maurice Hays RBrittaneyN. - 03/05/2015 6:14 AM CDT ED Primary Assessment Document Has Been Updated ED Primary Assessment Entered On: 03/05/2015 6:15 CDT Performed On: 03/05/2015 6:14 CDT by MAURICE HAYS RN Reason For Visit (As Of: 03/05/2015 06:15:13 CDT) Problems(Active) Abuse Tobacco Smoking NOS (ICD-9-CM :305.1 ) Name of Problem: Abuse Tobacco Smoking NOS ; Recorder: MAURICE ADDISON; Confirmation: Confirmed ; Classification: Medical ; Code: 305.1 ; Contributor System: Proximex ; Last Updated: 12/12/2014 9:21 CDT ; Life Cycle Date: 12/12/2014 ; Life Cycle Status: Active ; Responsible Provider: MAURICE ADDISON; Vocabulary: ICD-9-CM Dysthymic Disorder (ICD-9-CM :300.4 ) Name of Problem: Dysthymic Disorder ; Onset Date: 08/01/2010 ;Confirmation: Confirmed ; Classification: Medical ; Code: 300.4 ; Contributor System: EventbriteChart ; Last Updated: 12/12/2014 9:11 CDT ; Life Cycle Status: Active ; Vocabulary: ICD-9-CM ; Comments: - Dysthymic disorder Headache (ICD-9-CM :784.0 ) Name of Problem: Headache ; Onset Date: 10/24/2007 ; Confirmation: Confirmed ; Classification: Medical ; Code: 784.0 ; Contributor System: EventbriteChart ; Last Updated: 12/12/2014 9:11 CDT ; Life Cycle Status: Active ; Vocabulary: ICD-9-CM ; Comments: - Headache Headache Migraine (ICD-9-CM :346.90 ) Name of Problem: Headache Migraine ; Onset Date: 01/21/2012 ; Recorder: RABIA NATHAN MD; Confirmation: Confirmed ; Classification: Medical ; Code: 346.90 ; Contributor System: PowerChart ; Last Updated: 12/12/2014 9:11 CDT ; Life Cycle Status: Active; Responsible Provider: RABIA NATHAN MD; Vocabulary: ICD-9-CM (ICD-9-CM :V22.2 ) Name of Problem: ; Onset Date: 2007 ; Recorder: GLEN ACOSTA; Confirmation: Confirmed ; Classification: Medical ; Code: V22.2 ; Contributor System: PowerChart ; Last Updated: 01/21/2012 9:41 CDT ; Life Cycle Date: 01/12/2012 ; Life Cycle Status: Active ; Responsible Provider: GLEN ACOSTA; Vocabulary: ICD-9-CM Diagnoses(Active) Throat pain - Adult Date: 03/05/2015 ; Diagnosis Type: Reason For Visit ; Confirmation: Complaint of; Clinical Dx: Throat pain - Adult ; Classification: Medical ; Clinical Service: Emergency medicine ; Code: PNED ; Probability: 0 ; Diagnosis Code: [id number] Triage Chief Complaint Description : see triage Mode of Arrival ED : Private vehicle, Ambulatory Track : Medical Languages : Macanese Treatments Prior to Arrival : Acetaminophen, Ibuprofen Are you ? : No Is Patient Female and 13-50 no hysterectomy : Yes Status : Possible unconfirmed MAURICE HAYS RN - 03/05/2015 6:14 CDT Pain Assessment Pain Symptoms : Yes MAURICE HAYS RN - 03/05/2015 6:14 CDT Respiratory Airway : Patent Respirations : Unlabored Respiratory Pattern : Regular MAURICE HAYS RN - 03/05/2015 6:14 CDT Cardiovascular Heart Rhythm : Regular Skin Color : Normal for ethnicity Skin Description : Dry Skin Temperature : Warm MAURICE HAYS RN - 03/05/2015 6:14 CDT Neurological Last Well Time Known : Not applicable Level of Consciousness : Alert Orientation : Oriented x 3 Characteristics of Speech : Appropriate for age MAURICE HAYS RN - 03/05/2015 6:14 CDT ED Psychosocial Affect/Behavior : Calm Domestic Abuse Concerns : None Behavioral Health Screen/Safety Assmt : No MAURICE HAYS RN - 03/05/2015 6:14 CDT Gastrointestinal Nutrition ED : Adequate MAURICE HAYS RN - 03/05/2015 6:14 CDT Musculoskeletal Fall Prevention Education Provided : MAURICE FLANAGAN RN - 03/05/2015 6:14 CDT Social Habits Tobacco Use/Currently Using : Yes Exposure to Tobacco Smoke : Patient smokes Smoking Status : Current every day smoker MAURICE HAYS RN - 03/05/2015 6:14 CDT Tobacco Use Grid Type : Cigarettes Cigarette Use Packs/Day : 0.5 MAURICE HAYS RN - 03/05/2015 6:14 CDT Alcohol Use Grid Alcohol Use : Yes MAURICE HAYS RN - 03/05/2015 6:14 CDT Recreational Drug Use Grid Drug Use : None MAURICE HAYS RN - 03/05/2015 6:14 CDT Source: [facility] [employer]ART Document Id: [id number] CDT!48 Maurice Hays RMarcos. - 03/05/2015 6:09 AM CDT ED Triage Assessment Document Has Been Updated ED Triage Assessment Entered On: 03/05/2015 6:14 CDT Performed On: 03/05/2015 6:09 CDT by MAURICE HAYS RN Reason For Visit (As Of: 03/05/2015 06:14:25 CDT) Problems(Active) Abuse Tobacco Smoking NOS (ICD-9-CM :305.1 ) Name of Problem: Abuse Tobacco Smoking NOS ; Recorder: MAURICE ADDISON; Confirmation: Confirmed ; Classification: Medical ; Code: 305.1 ; Contributor System: PowerChart ; Last Updated: 12/12/2014 9:21 CDT ; Life Cycle Date: 12/12/2014 ; Life Cycle Status: Active ; Responsible Provider: MAURICE ADDISON; Vocabulary: ICD-9-CM Dysthymic Disorder (ICD-9-CM :300.4 ) Name of [...] Medical ; Code: 784.0 ; Contributor System: PowerChart ; Last Updated: 12/12/2014 9:11 CDT ; Life Cycle Status: Active ; Vocabulary: ICD-9-CM ; Comments: - Headache Headache Migraine (ICD-9-CM :346.90 ) Name of Problem: Headache Migraine ; Onset Date: 01/21/2012 ; Recorder: RABIA NATHAN MD; Confirmation: Confirmed ; Classification: Medical ; Code: 346.90 ; Contributor System: EventbriteChart ; Last Updated: 12/12/2014 9:11 CDT ; Life Cycle Status: Active; Responsible Provider: RABIA NATHAN MD; Vocabulary: ICD-9-CM (ICD-9-CM :V22.2 ) Name of Problem: ; Onset Date: 2007 ; Recorder: GLEN ACOSTA; Confirmation: Confirmed ; Classification: Medical ; Code: V22.2 ; Contributor System: PowerChart ; Last Updated: 01/21/2012 9:41 CDT ; Life Cycle Date: 01/12/2012 ; Life Cycle Status: Active ; Responsible Provider: GLEN AOCSTA; Vocabulary: ICD-9-CM Diagnoses(Active) Throat pain - Adult Date: 03/05/2015 ; Diagnosis Type: Reason For Visit ; Confirmation: Complaint of; Clinical Dx: Throat pain - Adult ; Classification: Medical ; Clinical Service: Emergency medicine ; Code: PNED ; Probability: 0 ; Diagnosis Code: [id number] Triage Chief Complaint Description : Pt presents with sore throat. Diagnosed February 27 with strep was seen in ER March 02 again and changed antibiotics. Pain continues, hard to swallow and swollen. Tonsils hugemore on left then right side. Information Given By : Patient Accompanied By : Alone Mode of Arrival ED : Private vehicle, Ambulatory Track : Medical Languages : Macanese Vital Signs Assessed : Yes Treatments Prior to Arrival : Acetaminophen, Ibuprofen Are you ? : No Is Patient Female and 13-50 no hysterectomy : Yes Status : Possible unconfirmed MAURICE HAYS RN - 03/05/2015 6:09 CDT Vital Signs Temperature Core : 36.5 DegC(Converted to: 97.7 DegF) Peripheral Pulse Rate : 95 /min Respiratory Rate : 18 /min Systolic Blood Pressure : 170 mmHg (>HHI) Diastolic Blood Pressure : 107 mmHg (>HHI) NIBP Mean : 128 mmHg SpO2 : 97 % Height : 157 cm(Converted to: 5 ft 2 inch(es)) Actual Weight : 139 kg Actual Weight Conversion to Pounds : 305.8 lb Body Mass Index : 56.39 kg/m2 MAURICE HAYS RN - 03/05/2015 6:09 CDT Pain Assessment Pain Symptoms : Yes MAURICE HAYS RN - 03/05/2015 6:09 CDT Pain Scale Pain Scale Verbal 0-10 : Open MAURICE HAYS RN - 03/05/2015 6:09 CDT Pain Pain Assessment Grid Pain 1 Location : Throat Intensity : 8 MAURICE HAYS RN - 03/05/2015 6:09 CDT Comfort Measures Comfort Measures Grid Rest : Yes MAURICE HAYS RN - 03/05/2015 6:09 CDT ED Physician Notification Time ED Physician Notification Time : 03/05/2015 6:14 CDT MAURICE HAYS RN - 03/05/2015 6:09 CDT JAYDEN JAYDEN Level 1 : No JAYDEN Level 2 : No JAYDEN Level 3 : One MAURICE HAYS RN - 03/05/2015 6:09 CDT DCP GENERIC CODE Tracking Acuity : 3 -Urgent Tracking Group : [facility] ED MAURICE HAYS RN - 03/05/2015 6:09 CDT Allergy (As Of: 03/05/2015 06:14:25 CDT) Allergies (Active) penicillins Estimated Onset Date: Unspecified ; Created By: GLEN ACOSTA; Reaction Status: Active ;Category: Drug ; Substance: penicillins ; Type: Allergy ; Updated By: GLEN ACOSTA; Reviewed Date: 03/05/2015 6:14 CDT Immunizations Immunizations Current : Yes MAURICE HAYS RN - 03/05/2015 6:09 CDT Source: [employer] Document Id: [id number] CDT!48 documented in this encounter Miscellaneous Notes Miscellaneous - Dawna Hart R.N. - 03/05/2015 10:41 AM CDT Valuables/Belongings Valuables/Belongings Entered On: 03/05/2015 10:41 CDT Performed On: 03/05/2015 10:41 CDT by DAWNA HART RN Valuables/Belongings Belongings Sent Home With : patient DAWNA HART RN - 03/05/2015 10:41 CDT Source: [employer] Document Id: [id number] CDT!3 Miscellaneous - Conversion, Historical Provider Ser - 03/05/2015 10:30 AM CDT Coding Summary-Paper Based CODING DATE: 03/18/2015 FINAL [facility] STATUS: * Discharged to Home or Self Care PAYOR: [employer] ADMIT DX: 784.1 Throat Pain REASON FOR VISIT DX: 784.1 Throat Pain FINAL DX: PRINCIPAL: 475 Peritonsillar Abscess SECONDARY: PROCEDURES DOCTOR NAME DATE NOTE: The code number assigned matches the documented diagnosis and / or procedure in the patient's chart. However, the narrative phrase printed from the coding software may appear abbreviated, or result in slightly different terminology. Coded By: CLARITA PATRICK Date Saved: 03/18/2015 11:39 am Source: [facility] POWERCHART Document Id: [id number] Miscellaneous - Dawna Hart RRoverto - 03/05/2015 6:02 AM CDT Facility Charge Ticket 2.0 11.0 DX Facility Charge Ticket 2.0 11.0 DX Entered On: 03/05/2015 10:41 CDT Performed On: 03/05/2015 6:02 CDT by DAWNA HART RN Facility Charge Ticket 2.0 11.0 DX ED Other Charges : Standard ED Encounter TVL Level Translated RTF : Throat pain - Adult TVL:2 TVL Level for Facility Charge Ticket : Level 2 Arrival Mode Calc : 257 Mode of Arrival ED : Private vehicle, Ambulatory [facility] Mode of Arrival Interpreted : Standard [facility] Process Management : None Order Management RTF : Laboratory Beta hCG Qualitative Urine,03/05/15 06:27,JOSLYN SNYDER MD Completed Mononucleosis Screen,03/05/15 06:28,JOSLYN SNYDER MD Completed CT / MRI / Ultrasound Soft Tissue Neck CT w/ contrast,03/05/15 06:27,JOSLYN SNYDER MD Completed [facility] Order Management : CT/MRI/Ultrasound, Lab tests 30 Minutes Critical Care : No Nursing Notes RTF : Triage Forms ED Triage Assessment,03/05/15 06:09,MAURICE HAYS RN Nursing Notes ED Primary Assessment,03/05/15 06:14,MAURICE HAYS RN ED Nurse Reassess,03/05/15 08:59,DAWNA HART RN ED Pain Assessment,03/05/15 09:56,DAWNA HART RN ED Pain Assessment,03/05/15 07:27,DAWNA HART RN [facility] Nursing Assessment : Triage and 1-2 nursing assessments [facility] Disposition : Discharge Disposition RTF : discharge [facility] Total Points with Diagnosis Control : 7 [facility] Visit Level : 81293 Level 3 Treatments Prior to Arrival : Acetaminophen, Ibuprofen DAWNA HART RN - 03/05/2015 10:41 CDT Source: [facility] POWERCHART Document Id: [id number] CDT!19 documented in this encounter Plan of Treatment Scheduled Procedures Name Priority Associated Diagnoses Date/Time COLONOSCOPY Diarrhea documented as of this encounter Procedures Procedure Name Priority Date/Time Associated Comments Diagnosis POCT MONONUCLEOSIS Routine 03/05/2015 6:54 AM Res ults for this SCREEN CDT procedure are i n the results section. TEST, U Routine 03/05/2015 6:30 AM Resu lts for this CDT procedure are i n the results section. documented in this encounter Results Mononucleosis Screen, POCT (03/05/2015 6:54 AM CDT) [facility] [employer] Method Time Signature Infectious POWERCHART Rowan Test, S HXFinal Negative POWERCHART HXFinal Reference: POWERCHART Negative Specimen (Source) Anatomical Collection Method Collection Time Re ceived Time Location / / Volume Laterality Blood 03/05/2015 6:54 AM CDT Joslyn Snyder M.D. LAB POCT ORDERABLES-MANUAL Performing Organization Address City/State/ZIP Code Phon e Number POWERCHART Test, Qualitative, Urine (03/05/2015 6:30 AM CDT) [facility] Method Time Signature HXBeta-hCG Negative POWERCHART Qualitative Urine Specimen (Source) Anatomical Collection Method Collection Time Re ceived Time Location / / Volume Laterality Urine 03/05/2015 6:30 AM CDT Joslyn Snyder M.D. LAB URINE ORDERABLES Performing Organization Address City/[facility]/ZIP Code Phon e Number POWERCHART documented in this encounter Visit Diagnoses Not on filedocumented in this encounter Additional Health Concerns Assessment Noted Time PHQ-9 Depression Total Score: 11 12/13/2014 9:50 AM CD T documented as of this encounter
--- OUTSIDE RECORDS SUMMARY | 2022-06-29 09:32 | XMS_ITS | Encounter Summary ---
:1985 Author Organization [facility] Address [address] [place] [address] Care Team Providers Name Role Phone Unavailable Primary Care Provider Unavailable Encounter Details Date Type Department Care Team Description 11/16/[address] [facility] Keith Nguyen M.D. [address] [place] [address] (Wo rk) Social History Tobacco [...] How often do you attend evangelical or mu-ism More than 4 time s [...] - - Height 158 cm (5' 2.21) 11/16/2016 9:51 AM CDT Body Mass Index - - documented in this encounter Medications at Time of Discharge Medication Sig Dispensed Refills Start Date End Date ACETAMINOPHEN/DEXTROMETHORP Take by mouth. 0 04/201707/29/2017 SANDOVAL (ACETAMINOPHEN-DM ORAL) PNV NO.95/FERROUS FUM/FOLIC Take by mouth 0 11/0607/29/2017 AC ( MULTIVITAMINS daily. ORAL) documented as of this encounter Miscellaneous Notes Miscellaneous - Keith Nguyen M.D. - 11/17/2016 8:14 AM CDT Results Notification Document Contains Addenda Addendum by MADHAVI ADDISON RN on November 24, 2016 07:45:07 CDT From: MADHAVI ADDISON RN To: Ears/Nose/Throat Nurse; Sent: 11/24/2016 07:45:07 CDT Show up: 11/24/2016 07:44:00 CDT Subject: RE: Results Notification patient phoned with rapid strep results Addendum by MELLISSA TERRY CMA on November 23, 2016 15:29:58 CDT From: MELLISSA TERRY CMA ( Ears/Nose/Throat Nurse) To: MADHAVI ADDISON RN; Sent: 11/23/2016 15:29:58 CDT Show up: 11/23/2016 15:29:00 CDT Subject: RE: Results Notification Madhavi has this patient been called? Addendum by MADHAVI ADDISON RN on November 18, 2016 09:51:27 CDT From: MADHAVI ADDISON RN To: Ears/Nose/Throat Nurse; Sent: 11/18/2016 09:51:27 CDT Show up: 11/18/2016 09:50:00 CDT Subject: RE: Results Notification yes, will do Addendum by JUDE WAGNER RN on November 17, 2016 09:36:55 CDT From: JUDE WAGNER RN ( Ears/Nose/Throat Nurse) To: KEITH NGUYEN MD; Cc: MADHAVI ADDISON RN; Sent: 11/17/2016 09:36:55 CDT Show up: 11/17/2016 09:34:00 CDT Subject: RE: Results Notification This result is stating that the Rapid test came back negative and they are waiting on the culture report to come back. I believe that takes another 24 to 48 hrs. Madhavi can you please call and let the patient know of the results so far? Thanks, Dianna From: KEITH NGUYEN MD To: Ears/Nose/Throat Nurse; KEITH NGUYEN MD; Sent: 11/17/2016 08:14:59 CDT Show up: 11/17/2016 08:15:00 CDT Subject: Results Notification ent - please call lab, this doesn't make sense to me, it seems only 'to follow' but no actual result. Results: Date Result Type Ind Result Name MBO Review Rapid Strep A Source: [facility] [employer] Document Id: [id number] Electronically signed by Conversion, [facility] Head Of Biology [id number] at 02/02/2017 2:11 AM CDT documented in this encounter Plan of Treatment Scheduled Procedures Name Priority Associated Diagnoses Date/Time COLONOSCOPY Diarrhea documented as of this encounter Procedures Procedure Name Priority Date/Time Associated Diagnosis Comme nts RAPID STREP A Routine 11/16/2016 9:30 AM Results for this SCREEN CDT procedure are i n the results section. RAPID STREP A Routine 11/16/2016 9:30 AM Results for this SCREEN CDT procedure are i n the results section. documented in this encounter Results Rapid Strep A Screen (11/16/2016 9:30 AM CDT) [facility] Method Time Signature HXRapid Strep POWERCHART Confirmation HXPre Pending POWERCHART HXFinal NEG POWERCHART HXFinal [facility] [id number] Specimen Anatomical Collection Method Collection Time Receive d Time (Source) Location / / Volume Laterality Throat 11/16/2016 9:30 AM 03/27/201 7 9:30 CDT AM CDT Keith Nguyen M.D. LAB MICROBIOLOGY - GENERAL O [place]OBBY Performing Organization Address City/State/ZIP Code Phon e Number POWERCHART Rapid Strep A Screen (11/16/2016 9:30 AM CDT) [facility] Method Time Signature HXStrep A POWERCHART Screen Rapid HXFinal Negative for POWERCHART Strep Group A by rapid screen. HXFinal Culture POWERCHART confirmation to follow. Specimen (Source) Anatomical Collection Method Collection Time Re ceived Time Location / / Volume Laterality Throat 11/16/2016 9:30 AM CDT Keith Nguyen M.D. LAB MICROBIOLOGY - GENERAL O [place] Performing Organization Address City/State/[facility] Code Phon e Number POWERCHART documented in this encounter Visit Diagnoses Not on filedocumented in this encounter Additional Health Concerns Assessment Noted Time PHQ-9 Depression Total Score: 11 12/13/2014 9:50 AM CD T documented as of this encounter
--- OUTSIDE RECORDS SUMMARY | 2022-06-29 09:32 | XMS_ITS | Encounter Summary ---
:1985 Author Organization [facility] Address [address] [place] [address] Care Team Providers Name Role Phone Unavailable Primary Care Provider Unavailable Encounter Details Date Type Department Care Team Description 10/29/2016 Hospital Encounter HX [facility] Maureen Hooker, PRINT LINE INSPECTOR, C.N.P., D. N.P. [address] [place] [address] (Wo rk) Social History Tobacco [...] or relatives? How often do you attend latter-day or sabianism More than 4 time s per year 07/09/2020 services? Do you belong to any clubs or organizations No 04/19/2019 such as latter-day groups, unions, fraternal or athletic groups, or [...] Sign Reading Time Taken Comments Blood Pressure 144/90 10/29/2016 9:32 AM SHIFT MANAGER Pulse 104 10/29/2016 9:32 AM SHIFT MANAGER Temperature - - Respiratory Rate 20 10/29/2016 9:28 AM SHIFT MANAGER Oxygen Saturation - - Inhaled Oxygen Concentration - - Weight 149 kg (329 lb 5.9 oz) 10/29/2016 9:28 AM SHIFT MANAGER Height 157 cm (5' 1.81) 10/29/2016 9:32 AM SHIFT MANAGER Body Mass Index 60.61 10/29/2016 9:28 AM SHIFT MANAGER documented in this encounter Medications at Time of Discharge Medication Sig Dispensed Refills Start Date End Date ACETAMINOPHEN/DEXTROMETHORPHAN Take by mouth. 0 0 10/29/2016 07/29/2017 (ACETAMINOPHEN-DM ORAL) documented as of this encounter Progress Notes Rylee Hooker, JOSEFA, C.N.P., D.N.P. - 10/29/2016 10:41 AM CST Clinic Full Note CHIEF COMPLAINT/REASON FOR VISIT Swelling in feet. HISTORY OF PRESENT ILLNESS Puneet is a pleasant 30-year old female that presents to the clinic today with a couple concerns: 1. Swelling in her feet for the last couple days. No changes in diet. No added salt. NO numbness ortingling 2. Possible - She reports being about a 1 week late on her period. She reports that her period typically is the first week of every month, and lasts only a couple days. She is not currently on any contraception and she and her do not use condoms. She reports her last menstrual period was the first week of September and had intercourse a week following. 3. Migraine - She was diagnosed with chronic migraines a few years ago, and was given Imitrex, which did not help symptoms. She reports a frontal bilateral headache that is worse when she sneezes or coughs. She reports 2-3 migraines/week. She was previously diagnosed with a lesion on her brain, but was told it was benign/non-worrisome and would not cause any ongoing problems. She reports that ibuprofen typically doesn't work. She reports she was on a medication that started with a T that also did not improve symptoms. She had some left over Vicodin from a previous surgery that she tried for her migraines which helped her sleep. No vision changes, but she does report some flashes intermittently. She also reports sound/light sensitivities with her migraines. No N/V. MEDICATIONS ibuprofen 400 mg oral tablet, 400 mg, 1 tab(s), Take with food, PO, q4hr, PRN Imitrex 25 mg oral tablet, 25 mg, 1 tab(s), Take 1 tablet at onset of headache. Repeat after two hours if needed., PO, As Directed, PRN Tylenol, PO ALLERGIES penicillins PAST MEDICAL HISTORY Chronic Abuse Tobacco Smoking NOS Dysthymic Disorder Headache Headache Migraine Historical PROCEDURES/SURGICAL HISTORY Pap smear (01/25/2013), Pap smear (01/25/2013). SOCIAL HISTORY Date Time: 10/29/2016 09:28 Tobacco: Smoking Status: Current every day smoker [...] Bleeding disorder; Hearing loss SYSTEMS REVIEW As per HPI, otherwise negative. VITAL SIGNS T: 37.0 ??C (Core) HR: 104 RR: 20 BP: 144 / 90 SpO2: 96% HT: 157 cm WT: 149.4 kg BMI: 60.61 PHYSICAL EXAMINATION GENERAL: Patient is in no distress. Capable of full communication without difficulty. Patient is polite and cooperative. HEENT: Normocephalic. EOMI, PERRL, Canals patent, TMs- bulging with serous fluid bilaterally. Oropharynx without lesion of mucosa. Pharyngeal rises symmetrically without exudate. NECK: No nodes noted. HEART: Regular rate and rhythm. No murmurs, gallops or rubs noted. LUNGS: Clear to auscultation bilaterally. No expiratory wheeze. No accessory muscles of respirationnoted. NEURO: Alert and oriented x3, CN II-XII grossly intact. PSYCH: Mood and affect is appropriate. LAB RESULTS -----CHEMISTRY----- Sodium Lvl: 140 Potassium Lvl: 4.6 Chloride: 102 CO2: 26 AGAP: 12 Glucose Lvl: 125 Creatinine: 0.62 EGFR (MDRD): >60 EGFR (MDRD): >60 BUN: 9 Calcium Lvl: 8.8 -----URINE/STOOL----- U Beta-hCG Ql: Positive IMPRESSION/REPORT/PLAN 1. Edema Pedal Blood work is WNL today. Given her POSITIVE test, we'll treat her pedal edema conservatively with compression stockings, elevation and rest. She was advised to watch her salt intake, and decrease if necessary. Push fluids. Ordered: Basic Metabolic Panel OV Est Pt Level 4 - 21835 - 25 min 2. Missed Menses test is POSITIVE today. She was advised to start a vitamin today and follow up with her OBGYN soon for her first ultrasound. Ordered: OV Est Pt Level 4 - 65177 - 25 min 3. Headache Migraine Tylenol for migraines. We will also trial a 2-week course of an antihistamine and flonase nasal spray for possible sinus headaches. Ordered: OV Est Pt Level 4 - 63461 - 25 min Sinusitis Allergic See #2. Ordered: fluticasone nasal, 2 spray(s), Nostrils(Both), Daily, allergies, # 16 gm, 4 Refill(s), Maintenance,Pharmacy: [facility] loratadine, 10 mg = 1 tab(s), PO, Daily, x 30 day(s), # 30 tab(s), 11 Refill(s), Acute, over the counter medication (Rx) OV Est Pt Level 4 - 58272 - 25 min Patient was instructed to follow up in primary care with concerns. Plan was discussed with patient and is in agreement with plan. All questions were answered. Patientleft in no acute distress. Ready to learn. No apparent learning barriers were identified. Learning preferences include listening. Explained diagnosis and treatment plan. Patient/Child/Caregiver expressed understanding of the content. Electronically Signed By: RYLEE HOOKER APRN, C.N.P., D.N.P On: 10/29/2016 12:26 PM Source: [facility] POWERCHART Document Id: [id number] T MANAGER documented in this encounter Miscellaneous Notes Miscellaneous - Rylee Hooker APRN, C.N.P., Priti.N.P. - 10/29/2016 10:07 AM SHIFT MANAGER Ambulatory Patient Summary [address] [place] [id number] Visit Information Name: PUNEET CLAYTON [facility] Number: [id number] Current Date: 10/29/2016 10:07:20 Physicians Attending Provider: RYLEE HOOKER APRN, C.N.P., KellyN.P Primary Care Provider: CATRACHO NAZARIO PA-C PUNEET [...] for Patient Medication Changes/Routing acetaminophen (Tylenol) Oral fluticasone nasal (Flonase 50 mcg/inh nasal spray) 2 Elberon(s), Nostrils(Both), once a day allergies New Routed to [address] [id number] furosemide (furosemide 20 mg oral tablet) 1 Tablet(s), Oral, once a day swelling New Routed to [facility] [address] [place] [address] ibuprofen (ibuprofen 400 mg oral tablet) 1 Tablet(s), Oral, every 4 hours as needed for Pain / FeverTake with food loratadine (Claritin 10 mg oral tablet) 1 Tablet(s), Oral, once a day x 30 day(s) New rizatriptan (Maxalt-CONSULAR OFFICER 10 mg oral tablet, disintegrating) 1 Tablet(s), Oral, as directed as needed for Migraine headache Take 1 tablet at onset of headache. Repeat after two hours if needed. New Routed to [address] [address] Stop Taking the Following Medications: SUMAtriptan (Imitrex 25 mg oral tablet) Medication list as of 10-29-16 10:07 Attention: If you have any medications at home that are not on this list, DO NOT take them until youcontact your provider for clarification. Give a copy of your medication list to your primary care provider. Update your medication list any time medications or doses are changed and carry your medication list at all times in case of emergency. Electronically Signed By: RYLEE HOOKER APRN, C.N.PBrittaney, D.N.P Signed On:29-OCT-2016 10:07:14 Your Allergies & Intolerances Substance Reaction Symptoms Category Comments penicillins Drug Your Problem List Problem Status Onset Comments Headache Migraine Active 01/21/2012 Headache Active 10/24/2007 11/18/13 Headache Dysthymic Disorder Active 08/01/2010 11/18/13 Dysthymic disorder Abuse Tobacco Smoking NOS Active Your Upcoming Appointments Date Time Location Provider 11/05/2016 12:45 [facility] ENT Jimmie CERON, Venu Gomez Attention: Contact your local Clinic if further [...] if you dont have one. Go to [email or web address] and click on Create Your Account. Then, follow the directions to complete the online form. Youll be asked for your [facility] number which you can find at the top of this document. Your Goals/Additional instructions: Source: [facility] POWERCHART Document Id: [id number] T MANAGER Miscellaneous - Rylee Hooker APRN C.N.P., D.N.P. - 10/29/2016 10:07 AM SHIFT MANAGER Ambulatory Discharge Medication List [address] [place] [id number] Visit Information Name: PUNEET CLAYTON [facility] Number: [id number] Current Date: 10/29/2016 10:07:19 Attending Provider: RYLEE HOOKER APRN, C.N.P., D.N.P Primary Care Provider: CATRACHO NAZARIO PA-C PUNEET [...] for Patient Medication Changes/Routing acetaminophen (Tylenol) Oral fluticasone nasal (Flonase 50 mcg/inh nasal spray) 2 Elberon(s), Nostrils(Both), once a day allergies New Routed to [address] [address] furosemide (furosemide 20 mg oral tablet) 1 Tablet(s), Oral, once a day swelling New Routed to [address] [id number] ibuprofen (ibuprofen 400 mg oral tablet) 1 Tablet(s), Oral, every 4 hours as needed for Pain / FeverTake with food loratadine (Claritin 10 mg oral tablet) 1 Tablet(s), Oral, once a day x 30 day(s) New rizatriptan (Maxalt-CONSULAR OFFICER 10 mg oral tablet, disintegrating) 1 Tablet(s), Oral, as directed as needed for Migraine headache Take 1 tablet at onset of headache. Repeat after two hours if needed. New Routed to [address] [id number] Stop Taking the Following Medications: SUMAtriptan (Imitrex 25 mg oral tablet) Medication list as of 10-29-16 10:07 Attention: If you have any medications at home that are not on this list, DO NOT take them until youcontact your provider for clarification. Give a copy of your medication list to your primary care provider. Update your medication list any time medications or doses are changed and carry your medication list at all times in case of emergency. Electronically Signed By: RYLEE HOOKER APRN C.N.PBrittaney, D.N.P Signed On:29-OCT-2016 10:07:14 Additional Information: Source: [facility] DragonflyCHART Document Id: [id number] T MANAGER Leilani - Craig Tolentino L.P.N. - 10/29/2016 9:32 AM CST Ambulatory Vitals Height Weight Ambulatory Vitals Height Weight Entered On: 10/29/2016 9:33 SHIFT MANAGER Performed On: 10/29/2016 9:32 SHIFT MANAGER by CRAIG TOLENTINO LPN Vitals/Ht/Wt Peripheral Pulse Rate : 104 /min (HI) Systolic Blood Pressure : 144 mmHg (HI) Diastolic Blood Pressure : 90 mmHg (HI) NIBP Mean : 108 mmHg BP Location : Left upper extremity Blood Pressure Cuff Size : Large Height : 157 cm(Converted to: 5 ft 2 inch(es), 62 inch(es)) CRAIG TOLENTINO LPN - 10/29/2016 9:32 SHIFT MANAGER Source: [facility] [employer] Document Id: [id number] SHIFT MANAGER!9 T MANAGER Leilani - Craig Tolentino L.P.N. - 10/29/2016 9:28 AM CST Adult Auto Air Conditioning Apprentice Intake/History Adult Auto Air Conditioning Apprentice Intake/History Entered On: 10/29/2016 9:31 SHIFT MANAGER Performed On: 10/29/2016 9:28 SHIFT MANAGER by CRAIG TOLENTINO LPN Intake Chief Complaint : Swelling in feet. LMP Date : N/A Ambulatory Intake Additional Information : Discuss ongoing migranes. Temperature Core : 37.0 DegC(Converted to: 98.6 DegF) Peripheral Pulse Rate : 97 /min Respiratory Rate : 20 /min Systolic Blood Pressure : 147 mmHg (HI) Diastolic Blood Pressure : 97 mmHg (>HHI) NIBP Mean : 114 mmHg BP Location : Left upper extremity Blood Pressure Cuff Size : Large SpO2 : 96 % Oxygen Therapy : Room air Height : 157 cm(Converted to: 5 ft 2 inch(es), 62 inch(es)) Actual Weight : 149.4 kg(Converted to: 329 lb 6 oz) Weight Source : Standing scale Dosing Weight Clinic : 149.4 kg Clinic BSA : 2.55 Body Mass Index : 60.61 kg/m2 CRAIG TOLENTINO LPN 10/29/2016 9:28 SHIFT MANAGER General Info Information Given By : Patient Preferred Communication Mode : Verbal Languages : Yemeni Is Patient Female and 13-50 no hysterectomy : Yes Status : Possible unconfirmed Are you ? : No CRAIG TOLENTINO LPN 10/29/2016 9:28 SHIFT MANAGER Subjective Pain Symptoms : Yes CRAIG TOLENTINO LPN 10/29/2016 9:28 SHIFT MANAGER Pain Scale Pain Scale Verbal 0-10 : Open CRAIG TOLENTINO LPN 10/29/2016 9:28 SHIFT MANAGER Pain Pain Assessment Grid Pain 1 Location : Head Intensity : 5 CRAIG TOLENTINO LPN 10/29/2016 9:28 SHIFT MANAGER Dependent Habits Exposure to Tobacco Smoke : Patient smokes Smoking Status : Current every day smoker Tobacco 2A : Yes Tobacco Use/Currently Using : Yes Tobacco Use/Last 30 Days : Yes Tobacco Use/Last 12 months : Yes Type : Cigarettes: Less than 20 per day Tobacco Use/Advised to Quit : Yes Alcohol Use : No CRAIG TOLENTINO LPN 10/29/2016 9:28 SHIFT MANAGER Caffeine Use Grid Caffeine Use : Current Type : Coffee, Soft drinks Frequency : Occasionally CRAIG TOLENTINO LPN - 10/29/2016 9:28 SHIFT MANAGER Recreational Drug Use Grid Drug Use : None CRAIG TOLENTINO LPN 10/29/2016 9:28 SHIFT MANAGER [email or web address] POWERCHART Document Id: [id number] SHIFT MANAGER!55 T MANAGER documented in this encounter Plan of Treatment Scheduled Procedures Name Priority Associated Diagnoses Date/Time COLONOSCOPY Diarrhea documented as of this encounter Procedures Procedure Name Priority Date/Time Associated Diagnosis Comme nts BASIC METABOLIC Routine 10/29/2016 10:16 AM Resul ts for this PANEL, S/P SHIFT MANAGER procedure are i n the results section. TEST, U Routine 10/29/2016 10:00 AM Res ults for this SHIFT MANAGER procedure are i n the results section. documented in this encounter Results BMP (Basic Metabolic Panel) (10/29/2016 10:16 AM SHIFT MANAGER) P athologist Signature Sodium, S 140 135 - 145 POWERCHART MMOLL Potassium, S 4.6 3.5 - 5.1 POWERCHART MMOLL Chloride, S 102 98 - 107 POWERCHART MMOLL CO2 Total 26 22 - 29 POWERCHART MMOLL BUN (Blood Urea 9 6 - 21 POWERCHART Nitrogen), S MGDL Creatinine 0.62 0.59 - POWERCHART 1.04 MGDL Calcium, Total, 8.8 8.6 - 10.3 POWERCHART S MGDL Anion Gap 12 10 - 20 POWERCHART MMOLL HXeGFR (MDRD) >60 >=60 POWERCHART [id number] eGFR >60 >=60 POWERCHART Black/ [id number] [place] Glucose 125 70 - 139 POWERCHART MGDL Specimen (Source) Anatomical Collection Method Collection Time Re ceived Time Location / / Volume Laterality Blood 10/29/2016 10:16 AM SHIFT MANAGER Rylee Hooker APRN C.N.P., D.N.P. LAB BLOOD ADD-ON Performing Organization Address City/State/ZIP Code Phon e Number POWERCHART Test, Qualitative, Urine (10/29/2016 10:00 AM SHIFT MANAGER) Patholo gist Method Time Signature HXBeta-hCG Positive POWERCHART Qualitative Urine Specimen (Source) Anatomical Collection Method Collection Time Re ceived Time Location / / Volume Laterality Urine 10/29/2016 10:00 AM SHIFT MANAGER Rylee Hooker APRN, C.N.P., D.N.P. LAB URINE ORDERAB LES Performing Organization Address City/State/ZIP Code Phon e Number POWERCHART documented in this encounter Visit Diagnoses Not on filedocumented in this encounter Additional Health Concerns Assessment Noted Time PHQ-9 Depression Total Score: 11 12/13/2014 9:50 AM CD T documented as of this encounter
--- OUTSIDE RECORDS SUMMARY | 2022-06-29 09:32 | XMS_ITS | Encounter Summary ---
:1985 Author Organization [facility] Address [address] [place] [address] Care Team Providers Name Role Phone Unavailable Primary Care Provider Unavailable Encounter Details Date Type Department Care Team Description 10/12/2016 Hospital Encounter HX [facility] ME Maureen Hooker, WORK MEASUREMENT ENGINEER, C.N.P., D. N.P. [address] [place] [address] (Wo rk) Social History Tobacco [...] How often do you attend nondenominational or gnosticism More than 4 time s per year [...] Sign Reading Time Taken Comments Blood Pressure 116/78 10/12/2016 8:36 AM SPECIAL EVENT ASSISTANT Pulse 74 10/12/2016 8:36 AM SPECIAL EVENT ASSISTANT Temperature - - Respiratory Rate 16 10/12/2016 8:36 AM SPECIAL EVENT ASSISTANT Oxygen Saturation - - Inhaled Oxygen Concentration - - Weight - - Height 157 cm (5' 1.81) 10/12/2016 8:36 AM SPECIAL EVENT ASSISTANT Body Mass Index - - documented in this encounter Progress Notes Rylee Hooker, JOSEFA, C.N.P., D.N.P. - 10/12/2016 8:42 AM CST Clinic Full Note CHIEF COMPLAINT/REASON FOR VISIT Sore throat HISTORY OF PRESENT ILLNESS Carol is a pleasant 30-year old female that presents to the clinic today with concerns regarding aheadache and sore throat for 2-3 days. She reports she also has an intermittent cough. She reports using throat lozenges and ibuprofen for discomfort, but has not tried anything else [id number] for symptoms. No fever or chills. No N/V/D. No sinus symptoms. MEDICATIONS No active medications ALLERGIES penicillins PAST MEDICAL HISTORY Chronic Abuse Tobacco Smoking NOS Dysthymic Disorder Headache Headache Migraine Historical PROCEDURES/SURGICAL HISTORY Pap smear (01/25/2013), Pap smear (01/25/2013). SOCIAL HISTORY Date Time: 10/12/2016 08:36 Tobacco: Smoking Status: Current every day smoker Exposure: Patient smokes Alcohol: Use: No Results Found Recreational Drugs: [...] per HPI, otherwise negative. VITAL SIGNS T: 36.2 ??C (Core) HR: 74 RR: 16 BP: 116 / 78 SpO2: 91% HT: 157 cm PHYSICAL EXAMINATION GENERAL: Patient is in no distress. Capable of full communication without difficulty. Patient is polite and cooperative. HEENT: Normocephalic. EOMI, PERRL, Canals patent, TMs normal. Oropharynx erythematous, but without lesion of mucosa. Tonsil 2+. Pharyngeal rises symmetrically without exudate. NECK: No nodes noted. HEART: Regular rate and rhythm. No murmurs, gallops or rubs noted. LUNGS: Clear to auscultation bilaterally. No expiratory wheeze. No accessory muscles of respirationnoted. NEURO: Alert and oriented x3 PSYCH: Mood and affect is appropriate. LAB RESULTS -----MICROBIOLOGY----- Strep A Screen Rapid: NEGATIVE. Culture pending. IMPRESSION/REPORT/PLAN 1. Sore Throat (ST) NOS Rapid strep screen negative today - will culture and contact patient if an antibiotic needs to be started. Conservative treatment advised initially - Tylenol/ibuprofen for discomfort. Salt water gargles. Push fluids and rest. Ordered: OV Est Pt Level 3 - 16512 - 15 min Rapid Strep Confirmation 2. Rhinitis NOS Patient was advised to start a two week course of an antihistamine and Flonase nasal spray, then asneeded for symptoms. Patient was instructed to follow up in [...] By: RYLEE HOOKER APRN, C.N.P., D.N.P On: 10/12/2016 09:02 AM Source: [facility] POWERCHART Document Id: [id number] IAL EVENT ASSISTANT documented in this encounter Miscellaneous Notes Miscellaneous - Rylee Hooker APRN, C.N.P., D.N.P. - 10/13/2016 11:16 AM SPECIAL EVENT ASSISTANT Results Notification Document Contains Addenda Addendum by CATRACHO NAZARIO PA-C on October 13, 2016 11:21 SPECIAL EVENT ASSISTANT Discussed with patient and order for ENT was sent for patient. From: RYLEE OHOKER APRN CBrittaneyNJud, Priti.N.P Sent: 10/13/2016 11:16:43 SPECIAL EVENT ASSISTANT Show up: 10/13/2016 11:11:00 SPECIAL EVENT ASSISTANT Subject: Results Notification Patient was contact that her strep culture came back positive. Due to her PCN allergy and unknown reaction, I will treat her today with Azithromycin. She informed me that this will be her 4th incidenceof strep in 12 months, as well as a tonsillar abscess last summer - she was wondering about an ENT consult. I deferred this question to her PCP, HENOK Rudd - patient will contact Catracho to see if this is a good idea. Results: Date Result Type Ind Result Name MBO POS Rapid Strep Confirmation Source: [facility] POWERCHART Document Id: [id number] IAL EVENT ASSISTANT Miscellaneous - Jude Cardona L.P.N. - 10/12/2016 8:36 AM CST Adult Swimming Pool Maintenance Intake/History Adult Swimming Pool Maintenance Intake/History Entered On: 10/12/2016 8:37 SPECIAL EVENT ASSISTANT Performed On: 10/12/2016 8:36 SPECIAL EVENT ASSISTANT by JUDE CARDONA LPN Intake Chief Complaint : Sore throat Temperature Core : 36.2 DegC(Converted to: 97.2 DegF) (LOW) Peripheral Pulse Rate : 74 /min Respiratory Rate : 16 /min Systolic Blood Pressure : 116 mmHg Diastolic Blood Pressure : 78 mmHg NIBP Mean : 91 mmHg BP Location : Left upper extremity Blood Pressure Cuff Size : Large SpO2 : 91 % (LOW) Oxygen Therapy : Room air Height : 157 cm(Converted to: 5 ft 2 inch(es), 62 inch(es)) JUDE CARDONA LPN - 10/12/2016 8:36 SPECIAL EVENT ASSISTANT General Info Languages : Armenian Is Patient Female and 13-50 no hysterectomy : Yes Status : Patient denies Are you ? : No JUDE CARDONA LPN - 10/12/2016 8:36 SPECIAL EVENT ASSISTANT Subjective Pain Symptoms : Yes WEST CARDONANADIA Purdy LPN - 10/12/2016 8:36 SPECIAL EVENT ASSISTANT Pain Scale Pain Scale Verbal 0-10 : Open JUDE CARDONA JEANETTE 10/12/2016 8:36 SPECIAL EVENT ASSISTANT Pain Pain Assessment Grid Pain 1 Location : Throat Laterality : Bilateral Intensity : 3 WEST CARDONANADIA Purdy SHEAR SETTER 10/12/2016 8:36 SPECIAL EVENT ASSISTANT Dependent Habits Exposure to Tobacco Smoke : Patient smokes Smoking Status : Current every day smoker Tobacco 2A : Yes Tobacco Use/Currently Using : Yes Tobacco Use/Last 30 Days : Yes Tobacco Use/Last 12 months : Yes Type : Cigarettes: Less than 20 per day Tobacco Use/Advised to Quit : Yes JUDE CARDONA LPN 10/12/2016 8:36 SPECIAL EVENT ASSISTANT Caffeine Use Grid Caffeine Use : Current Type : Coffee, Soft drinks Frequency : Occasionally JUDE CARDONA LPN 10/12/2016 8:36 SPECIAL EVENT ASSISTANT Recreational Drug Use Grid Drug Use : None JUDE CARDONA LPN 10/12/2016 8:36 SPECIAL EVENT ASSISTANT Source: [facility] POWERCHART Document Id: [id number] SPECIAL EVENT ASSISTANT!46 IAL EVENT ASSISTANT documented in this encounter Plan of Treatment Scheduled Procedures Name Priority Associated Diagnoses Date/Time COLONOSCOPY Diarrhea documented as of this encounter Procedures Procedure Name Priority Date/Time Associated Diagnosis Comme nts RAPID STREP A Routine 10/12/2016 8:15 AM Results for this SCREEN SPECIAL EVENT ASSISTANT procedure are i n the results section. RAPID STREP A Routine 10/12/2016 8:15 AM Results for this SCREEN SPECIAL EVENT ASSISTANT procedure are i n the results section. documented in this encounter Results (ABNORMAL) Rapid Strep A Screen (10/12/2016 8:15 AM SPECIAL EVENT ASSISTANT) [facility] Method Time Signature HXRapid Strep (POSITIVE) POWERCHART Confirmation HXPre Pending POWERCHART HXFinal POS POWERCHART HXFinal [facility] POWERCHART [facility] [id number] Specimen Anatomical Collection Method Collection Time Receive d Time (Source) Location / / Volume Laterality Throat 10/12/2016 8:15 AM 7 8:15 SPECIAL EVENT ASSISTANT AM SPECIAL EVENT ASSISTANT Marlyn Crocker APRN.N.P., D.N.P. LAB MICROBIOLOGY - GENERAL ORDERABLES Performing Organization Address City/State/ZIP Code Phon e Number POWERCHART Rapid Strep A Screen (10/12/2016 8:15 AM SPECIAL EVENT ASSISTANT) [facility] gist Method Time Signature HXStrep A POWERCHART Screen Rapid HXFinal Negative for POWERCHART Strep Group A by rapid screen. HXFinal Culture POWERCHART confirmation to follow. Specimen (Source) Anatomical Collection Method Collection Time Re ceived Time Location / / Volume Laterality Throat 10/12/2016 8:15 AM SPECIAL EVENT ASSISTANT Marlyn Crocker APRN.N.P., D.N.P. LAB MICROBIOLOGY - GENERAL ORDERABLES Performing Organization Address City/[facility] Code Phon e Number POWERCHART documented in this encounter Visit Diagnoses Not on filedocumented in this encounter Additional Health Concerns Assessment Noted Time PHQ-9 Depression Total Score: 11 12/13/2014 9:50 AM CD T documented as of this encounter
--- OUTSIDE RECORDS SUMMARY | 2022-06-29 09:32 | XMS_ITS | Encounter Summary ---
:1985 Author Organization [facility] Address [address] [place] [address] Care Team Providers Name Role Phone Unavailable Primary Care Provider Unavailable Encounter Details Date Type Department Care Team Description 03/22/2015 Hospital Encounter HX [facility] Barbra Vora M.D. [address] [place] [phone] (Wo rk) Social History Tobacco Use [...] How often do you attend moravian or jewish More than 4 time s per year [...] Sign Reading Time Taken Comments Blood Pressure 140/85 03/22/2015 7:59 AM CDT Pulse 94 03/22/2015 7:59 AM CDT Temperature - - Respiratory Rate 18 03/22/2015 7:59 AM CDT Oxygen Saturation - - Inhaled Oxygen Concentration - - Weight 138 kg (304 lb 3.8 oz) 03/22/2015 7:59 AM CDT Height 157 cm (5' 1.81) 03/22/2015 7:59 AM CDT Body Mass Index 55.99 03/22/2015 7:59 AM CDT documented in this encounter Progress Notes Leonora Farias M.D. - 03/22/2015 10:40 AM CDT Clinic Full Note CHIEF COMPLAINT/REASON FOR VISIT MRI results HISTORY OF PRESENT ILLNESS Carol presents today for MRI results. She initially had a CT scan for a cyst on her tonsil and this showed a cyst in the temporal region of her brain. Because she has been having headaches and falling asleep easily it was recommended that she move forward with an MRI. She comes in for those results t josé antonio. MRI showed a benign neuroepithelial cyst that radiology felt was likely of little clinical significance. MEDICATIONS EpiPen Auto-Injector 0.3 mg injectable kit, 0.3 mg, IM, As Directed, PRN, 3 refills ibuprofen 200 mg oral tablet, See Instructions, 3-4 tabs prn SUMAtriptan 50 mg oral tablet, 50 mg, 1 tab(s), Take 1 tablet at onset of headache. Repeat after two hours if needed., PO, As Directed, PRN, 1 refills traZODone 50 mg oral tablet, 50 mg, 1 tab(s), PO, Daily, 3 refills Vicodin 5 mg-300 mg oral tablet, 1 tab(s), PO, q6hr, PRN, 0 refills Zoloft 100 mg oral tablet, 150 mg, 1.5 tab(s), Discontinue Velafaxine, PO, Daily, 3 refills ALLERGIES penicillins PAST MEDICAL HISTORY Chronic Abuse Tobacco Smoking NOS Dysthymic Disorder Headache Headache Migraine Historical PROCEDURES/SURGICAL HISTORY Pap smear (01/25/2013), Pap smear (01/25/2013). SOCIAL HISTORY Date Time: 03/22/2015 08:03 Tobacco: Smoking Status: Current some day smoker [...] disorder; Hearing loss SYSTEMS REVIEW As per HPI. VITAL SIGNS T: 36.5 ??C (Core) HR: 94 RR: 18 BP: 140 / 85 SpO2: 96% HT: 157 cm WT: 138 kg BMI: 55.99 PHYSICAL EXAMINATION General: Patient is alert and oriented in no acute distress. No further exam completed. DIAGNOSTIC RESULTS Report 20-Mar-2015 10:33:00 Exam: MRI Hd wo&w [...] restricted diffusion or infarct. Marcio Briceno MD. [id number] 20-Mar-2015 10:52 [1] IMPRESSION/REPORT/PLAN 1. Cyst Brain Congenital We reviewed the test results as above. I discussed that this is likely not contributing to her current symptoms. They wonder if she should still follow up with neurology. Apparently this appointment was more for her headaches and I think it is reasonable to keep it. I also encouraged her follow through on the sleep study. Ordered: OV Est Pt Level 2 - 46289 - 10 min FOOTNOTES [1]MR Brain w/ + w/o contrast; CATHI MONTIEL 03/20/2015 10:30 CDT Electronically Signed By: LEONORA NATHAN MD On: 03/22/2015 10:41 AM Source: [facility] POWERCHART Document Id: [id number] documented in this encounter Miscellaneous Notes Miscellaneous - Francesca Lozada LBrittaneyPBrittaneyNBrittaney - 03/22/2015 8:03 AM CDT Health Assessment Health Assessment Entered On: 03/22/2015 8:04 CDT Performed On: 03/22/2015 8:03 CDT by FRANCESCA LOZADA LPN Health Assessment Complete Health Assessment Complete or Modified : Annual Health Assessment Annual Health Assessment Completed : Yes FRANCESCA LOZADA LPN - 03/22/2015 8:03 CDT Nutrition Nutrition Risk Factors by History Adult : None FRANCESCA LOZADA LPN - 03/22/2015 8:03 CDT Functional Current Daily Living Assistance : None FRANCESCA LOZADA LPN - 03/22/2015 8:03 CDT Dependent Habits Tobacco Use/Currently Using : Yes Exposure to Tobacco Smoke : Patient smokes Smoking Status : Current some day smoker FRANCESCA LOZADA LPN - 03/22/2015 8:03 CDT Tobacco Use Grid Type : Cigarettes Cigarette Use Packs/Day : 0.5 FRANCESCA LOZADA LPN - 03/22/2015 8:03 CDT Caffeine Use Grid Caffeine Use : Current Type : Coffee, Soft drinks Frequency : Occasionally FRANCESCA LOZADA LPN - 03/22/2015 8:03 CDT Recreational Drug Use Grid Drug Use : None FRANCESCA LOZADA LPN 03/22/2015 8:03 CDT Psychosocial Domestic Abuse Concerns : None Behavioral Health Screen/Safety Assmt : No [employer] Preference : No qualifying data available. FRANCESCA LOZADA LPN - 03/22/2015 8:03 CDT Advance Directive Advanced Directives : No Advance Directive Additional Information : No FRANCESCA LZOADA LPN - 03/22/2015 8:03 CDT Educ Needs Learning Style Preference Adult Grid Patient : None Family : None FRANCESCA LOZADA LPN - 03/22/2015 8:03 CDT Source: [facility] POWERCHART Document Id: [id number] CDT!35 Miscellaneous - Francesca Lozada L.P.N. 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 Intake/History Entered On: 03/22/2015 8:02 CDT Performed On: 03/22/2015 7:59 CDT by FRANCESCA LOZADA LPN Intake Chief Complaint : MRI results Temperature Core : 36.5 DegC(Converted to: 97.7 DegF) Peripheral Pulse Rate : 94 /min Respiratory Rate : 18 /min Heart Rhythm : Regular Systolic Blood Pressure : 140 mmHg Diastolic Blood Pressure : 85 mmHg NIBP Mean : 103 mmHg BP Location : Left upper extremity Blood Pressure Cuff Size : Large SpO2 : 96 % Oxygen Therapy : Room air Height : 157 cm(Converted to: 5 ft 2 inch(es), 62 inch(es)) Actual Weight : 138 kg(Converted to: 304 lb 4 oz) Weight Source : Standing scale Dosing Weight Clinic : 138 kg Clinic BSA : 2.45 Body Mass Index : 55.99 kg/m2 FRANCESCA LOZADA LPN - 03/22/2015 7:59 CDT General Info Languages : Romanian Is Patient Female and 13-50 no hysterectomy : Yes Status : Patient denies Are you ? : No FRANCESCA LOZADA LPN - 03/22/2015 7:59 CDT Subjective Pain Symptoms : Yes FRANCESCA LOZADA LPN - 03/22/2015 7:59 CDT Pain Scale Pain Scale Verbal 0-10 : Open FRANCESCA LOZADA LPN - 03/22/2015 7:59 CDT Pain Pain Assessment Grid Pain 1 Location : Head Intensity : 5 FRANCESCA LOZADA LPN - 03/22/2015 7:59 CDT Dependent Habits Tobacco Use/Currently Using : Yes Exposure to Tobacco Smoke : Patient smokes Smoking Status : Current some day smoker FRANCESCA LOZADA LPN - 03/22/2015 7:59 CDT Tobacco Use Grid Type : Cigarettes Cigarette Use Packs/Day : 0.5 FRANCESCA LOZADA [facility] - 03/22/2015 7:59 CDT Alcohol Use : No FRANCESCA LOZADA [facility] - 03/22/2015 7:59 CDT Caffeine Use Grid Caffeine Use : Current Type : Coffee, Soft drinks Frequency : Occasionally FRANCESCA LOZADA [facility] - 03/22/2015 7:59 CDT Recreational Drug Use Grid Drug Use : None FRANCESCA LOZADA [facility] - 03/22/2015 7:59 CDT Source: [employer] Document Id: [id number] CDT!51 documented in this encounter Plan of Treatment Scheduled Procedures Name Priority Associated Diagnoses Date/Time COLONOSCOPY Diarrhea documented as of this encounter Visit Diagnoses Not on filedocumented in this encounter Additional Health Concerns Assessment Noted Time PHQ-9 Depression Total Score: 11 12/13/2014 9:50 AM CD T documented as of this encounter
--- OUTSIDE RECORDS SUMMARY | 2022-06-29 09:33 | XMS_ITS | Encounter Summary ---
:1985 Author Organization [facility] Address [address] [place] [address] Care Team Providers Name Role Phone Unavailable Primary Care Provider Unavailable Encounter Details Date Type Department Care Team Description 04/30/2014 Hospital Encounter HX [facility] ED Remi Marvin M.D. [address] [phone] (Wo rk) Social History Tobacco Use [...] How often do you attend yarsani or jainism More than 4 time s [...] Sign Reading Time Taken Comments Blood Pressure 103/58 04/30/2014 6:03 PM CDT Pulse 68 04/30/2014 6:03 PM CDT Temperature - - Respiratory Rate 20 04/30/2014 6:03 PM CDT Oxygen Saturation - - Inhaled Oxygen Concentration - - Weight 141 kg (309 lb 15.5 oz) 04/30/2014 4:11 PM CDT Height 158 cm (5' 2.21) 04/30/2014 6:03 PM CDT Body Mass Index 56.32 04/30/2014 4:11 PM CDT documented in this encounter Discharge Summaries Bambi Addison R.N. - 04/30/2014 7:01 PM CDT ED Discharge Instructions [address] [address] Name: PUNEET FRIED Date of : 1985 12:00 AM Visit Date: 04/30/2014 4:05 PM [facility] Number: [id number] Address: [address] [place] [phone] Primary Care Provider: MICHELLE BEAR MD IMPORTANT: [facility] [place] would like to thank you for allowing us to assist you with your healthcare needs. The following includes patient education materials and informationregarding your injury/illness. Diagnosis: Allergy Bee Sting Active; Hives; Reaction Allergic Active Follow-Up Instructions: With: Address: When: MICHELLE BEAR [address] [place] [id number] [facility] (1) Within As Needed Comments: For recheck If symptoms worsen Your Upcoming Appointments: Date Time Location Provider No Appointments found Patient Education Materials: [id number] ALLERGIC REACTION, OTHER [local] You are having an allergic reaction. This is due to exposure to something you have become sensitive to. This may be a household product, medicine, chemical, soap, cream, cosmetics or jewelry. A sting from an insect (that you were not aware of) can also cause this reaction. Sometimes it is difficult toknow exactly what caused this reaction. There may be redness, itching, and swelling. The rash will fade over the next few days. HOME CARE: ?? If itching is a problem, avoid anything that heats up your skin (hot showers/baths, direct sunlight) since heat will make itching worse. ?? An ice pack (ice cubes in a plastic bag, wrapped in a towel) will reduce local areas of redness and itching. Lanacaine cream or Solarcaine spray (or other product containing benzocaine) will reduce the itching. ?? Oral Benadryl (diphenhydramine) is an antihistamine available at drug and grocery stores. Unless a prescription antihistamine was given, Benadryl may be used to reduce itching if large areas of the skin are involved. Use lower doses during the daytime and higher doses at bedtime since the drug may make you sleepy. [NOTE: Do not use Benadryl if you have glaucoma or if you are a man with trouble urinating due to an enlarged prostate.] Claritin (loratadine) is an antihistamine that causes less drowsiness and is a good alternative for daytime use. FOLLOW UP with your doctor or this facility in the next two days if your symptoms do not continue toimprove. GET PROMPT MEDICAL ATTENTION if any of the following occur: ?? Spreading areas of itching, redness or swelling ?? New or worse swelling in the face, eyelids, lips, mouth, throat or tongue ?? Trouble swallowing or breathing ?? Dizziness, weakness or fainting ?? Signs of infection: o Spreading redness o Increased pain or swelling o Fever of 100.4??F (38??C) or higher, or as directed by your healthcare provider Colored fluid draining from the wound ?? [id number] [place] [address]. All rights reserved. This information is not intended as a substitute for professional medical care. Always follow your healthcare professional's instructions. [id number] MEDICATION: ZYRTEC Zyrtec (generic name is cetirizine) is an antihistamine. It relieves allergy symptoms such as wateryeyes, runny nose, itching eyes, and sneezing. It is also used for hives. DIRECTIONS FOR USE: -- Take this medicine by mouth, once a day or as directed by your doctor. It may be taken with or without food. WHAT TO WATCH FOR: POSSIBLE SIDE EFFECTS: Drowsiness, fatigue and dry mouth; children may develop stomach pain and vomiting. (If symptoms persist, contact your doctor). Yellow color of eyes or skin, dark urine (Stop medicine and contact your doctor.) ALLERGIC REACTIONS: Rash, itching, swelling, trouble swallowing or breathing --> (Contact your doctor or return to this facility promptly). MEDICAL CONDITIONS: Before starting this medicine, be sure your doctor knows if you have any of the following conditions: -- Allergic to hydroxyzine. -- Kidney or liver disease -- or breast feeding DRUG INTERACTIONS: Before starting this medicine, be sure your doctor knows if you are taking any ofthe following drugs: -- drugs for anxiety, sleep, muscle spasm, pain -- other anti-histamines -- anti-seizure drugs, psychiatric drugs (phenothiazines, tricyclics) WARNINGS: -- DO NOT DRIVE, ride a bicycle or operate dangerous equipment while taking this medicine until you know how it will affect you. -- This drug may cause increased side effects when taken with alcohol, muscle relaxant, sedative, tricyclic antidepressants, MAO-inhibitor or pain medicine. [NOTE: This information topic may not include all directions, precautions, medical conditions, drug/food interactions and warnings for this drug. Check with your doctor, nurse or pharmacist for any questions that you may have.] ?? [phone] [place] [address]. All rights reserved. This information is not intended as a substitute for professional medical care. Always follow your healthcare professional's instructions. [id number] INSECT BITE Insects most often bite to protect themselves or their nests. Certain bugs, like fleas, bite to feed. In some cases, the actual bite causes no pain. An itchy red welt or swelling may develop at the site of the bite. Most insect bites do not cause illness. And the itching and swelling most often go away without treatment. However, an infection can develop if the bite is scratched and the skin broken. Rarely, a person may have an allergic reaction to an insect bite. To help reduce swelling and itching, apply ice or a cold pack wrapped in a thin towel. HOME CARE Medications: The doctor may prescribe jsqh-epo-tvljvfz (OTC) medications to help relieve itching andswelling. Use each medication according to the directions on the package. If the bite becomes infected, an antibiotic will be prescribed. This may be in pill form taken by mouth or as an ointment or cream put directly on the skin. Be sure to use them exactly as prescribed. General Care: ?? Bite symptoms usually go away on their own within a week or two. ?? To help prevent infection, avoid scratching or picking at the bite. ?? To help relieve itching and swelling, apply ice wrapped in a thin towel to the bites. Do this forup to 10 minutes at a time Avoid hot showers or baths as these tend to make itching worse. ?? An OTC anti-itch medication such as calamine lotion or an antihistamine cream may be helpful. ?? If you suspect you have insects in your home, talk to a licensed pest-control professional. They can inspect your home and tell you how to get rid of bugs safely. FOLLOW UP as advised by the doctor or our staff. GET PROMPT MEDICAL ATTENTION if any of the following occurs: ?? Fever of 100.4??F (38??C)or higher ?? Signs of infection, such as increased swelling and pain, warmth, or drainage from the skin Signs of allergic reaction, such as hives, a spreading rash, throat itching or swelling, or wheezing(if you have trouble breathing, call 911) ?? [phone] [facility], [address] [place] [address]. All rights reserved. This information is not intended as a substitute for professional medical care. Always follow your healthcare professional's instructions. ED Tests and Procedures: Order Status Discharge Prescriptions & Home Medications: Medication/Strength Dose Route Frequency Indications/Special Instructions/Comments/Notes cetirizine (ZyrTEC 10 mg oral tablet) 10 mg Oral once a day use for allergic reaction predniSONE (predniSONE 10 mg oral tablet) See Instructions 6 tab(s) PO Daily x 3 d then 4 qd x 2 days FLUoxetine (FLUoxetine 10 mg oral tablet) 20 mg Oral once a day levonorgestrel (Mirena 52 mg intrauteral device) See Instructions placed 02/06/08 ibuprofen (ibuprofen 200 mg oral tablet) See Instructions 3-4 tabs prn *propranolol (Inderal LA 80 mg oral capsule, extended release) 160 mg Oral once a day * You have let [...] at all times in case of emergency. Medication Reconciliation: Reconciliation is a process of identifying the most accurate list of all medications a patient is taking - including name, dosage, frequency, and route - and using this list to provide to the patient information about how to take those medications. PUNEET FRIED or maribel has reviewed the home medications you have listed with us. Review the following instructions: You have NOT received any prescriptions and you have told us you are not currently taking any home medications You have NOT received any prescriptions. You have been provided a discharge medications list and you may CONTINUE taking your medications as previously prescribed by your regular providers. You have received the listed prescriptions and BEGIN all listed prescriptions as directed. Since you have listed no home medications, please check with your family doctor if you are taking any other medications. You have received the listed prescriptions and BEGIN all listed prescriptions as directed. Youhave been provided a discharge medications list and you may CONTINUE all home medications as previously prescribed by your regular providers. You have received the listed prescriptions and BEGIN all listed prescriptions as directed. Youhave been provided a discharge medications list. The following CHANGES have been made to your medication list; Otherwise, CONTINUE all home medications as previously prescribed by your regular provider. IMPORTANT: We examined and treated you today [...] arrange a ride home with a responsible green party. I, PUNEET RFIED , or responsible green party have received this information and my questions have been answered. I have discussed any challenges I see with this plan with the nurse or physician. Patient Signature or Responsible Democrat/Relationship Date Time Provider Signature Date Time Medication Reconciliation: Reconciliation is a process of identifying the most accurate list of all medications a patient is taking - including name, dosage, frequency, and route - and using this list to provide to the patient information about how to take those medications. PUNEET FRIED or designee has reviewed the home medications you have listed with us. Review the following instructions: You have NOT received any prescriptions and you have told us you are not currently taking any home medications You have NOT received any prescriptions. You have been provided a discharge medications list and you may CONTINUE taking your medications as previously prescribed by your regular providers. You have received the listed prescriptions and BEGIN all listed prescriptions as directed. Since you have listed no home medications, please check with your family doctor if you are taking any other medications. You have received the listed prescriptions and BEGIN all listed prescriptions as directed. Youhave been provided a discharge medications list and you may CONTINUE all home medications as previously prescribed by your regular providers. You have received the listed prescriptions and BEGIN all listed prescriptions as directed. Youhave been provided a discharge medications list. The following CHANGES have been made to your medication list; Otherwise, CONTINUE all home medications as previously prescribed by your regular provider. IMPORTANT: We examined and treated you today [...] arrange a ride home with a responsible green party. I, PUNEET FRIED , or responsible green party have received this information and my questions have been answered. I have discussed any challenges I see with this plan with the nurse or physician. Patient Signature or Responsible Democrat/Relationship Date Time Provider Signature Date Time This document has images extracted. Please consider using [employer] for all your patient education needs. Source: [facility] POWERCHART Document Id: [id number] Bambi Addison R.N. - 04/30/2014 7:01 PM CDT ED Depart Summary [facility] Emergency Department Clinical Discharge Summary PERSON INFORMATION Name PUNEET FRIED Age 28 Years 1985 12:00 AM Sex Female Language Mauritian PCP MICHELLE BEAR MD Marital Status Single Visit Id Visit Reason Hand pain-swelling; Bee Sting Specialty Enc Type Emergency Med Service Emergency Medicine Referred by Track Group [facility] ED Discharge 04/30/2014 6:20 PM Tracking Id [id number] Checkout 04/30/2014 6:20 PM Checkin 04/30/2014 4:05 PM Acuity 4 -Less Urgent Dispo Type * Discharged to Home or Self Care Arrival 04/30/2014 4:05 PM Reg Status Complete LOS 000 02:15 Address: [address] [place] [id number] Comment: PROVIDER INFORMATION Provider Role Provider Contact Time RUIZ MARVIN MD ED Provider 04/30/14 16:37 BAMBI ADDISON SOFTWARE IMPLEMENTATION PROJECT MANAGER Nurse 04/30/14 17:21 DIAGNOSIS Allergy Bee Sting Active; Hives; Reaction Allergic Active Comment: PATIENT EDUCATION INFORMATION Instructions: ALLERGIC REACTION, Other (Local); ZYRTEC; INSECT BITE Follow up: With: Address: When: MICHELLE BEAR [address] [place] [address] [phone] (7) Within As Needed Comments: For recheck If symptoms worsen Source: [employer] Document Id: [id number] documented in this encounter ED Notes Bambi Addison R.N. - 04/30/2014 6:59 PM CDT ED Pain Assessment ED Pain Assessment Entered On: 04/30/2014 18:59 CDT Performed On: 04/30/2014 18:59 CDT by BAMBI ADDISON RN Pain Assessment Pain Symptoms : Yes BAMBI ADDISON RN - 04/30/2014 18:59 CDT Pain Pain Assessment Grid Pain 1 Location : Wrist Laterality : Left Intensity : 2 BAMBI ADDISON RN - 04/30/2014 18:59 CDT Source: [employer] Document Id: [id number] CDT!9 Bambi Addison R.N. - 04/30/2014 6:57 PM CDT ED Disposition Summary ED Disposition Summary Entered On: 04/30/2014 18:59 CDT Performed On: 04/30/2014 18:57 CDT by BAMBI ADDISON RN ED Disposition Summary Accompanied By : Spouse Mode of Discharge : Ambulatory Transportation : Private vehicle Printed Discharge Instructions Given to Patient : Yes Patient Status at Discharge from ED : Unchanged BAMBI ADDISON RN - 04/30/2014 18:57 CDT Source: [employer] Document Id: [id number] CDT!7 Bambi Addison R.N. - 04/30/2014 6:10 PM CDT ED Treatments and Procedures ED Treatments and Procedures Entered On: 04/30/2014 18:57 CDT Performed On: 04/30/2014 18:10 CDT by BAMBI ADDISON RN Peripheral IV Peripheral IV Assess/Intervention Grid Peripheral IV #1 IV Activity : Start, Discontinue, Saline lock Number of Attempts : 1 Date of Insertion : 04/30/2014 CDT IV Site : Hand Laterality : Right Catheter Size : 20 Catheter Type : Protective Comments (Comment: iv discon't with cath intact [BAMBI ADDISON RN - 04/30/2014 18:55 CDT] ) BAMBI ADDISON RN - 04/30/2014 18:55 CDT Source: [employer] Document Id: [id number] CDT!11 Bambi Addison R.N. - 04/30/2014 5:45 PM CDT ED Treatments and Procedures ED Treatments and Procedures Entered On: 04/30/2014 18:54 CDT Performed On: 04/30/2014 17:45 CDT by BAMBI ADDISON RN Orthopedic Tx Orthopedic Treatment Instructions Given Treatment Site : Wrist Lower arm Treatment Laterality : Left Left Orthopedic Treatments Done : Wrist splint applied Sling applied Treatment Performed By : nurse nurse Neurovascular Status Pretreatment : Neurovascular intact distal to injury Neurovascular intact distal to injury Neurovascular Status Posttreatment : Neurovascular intact distal to injury Neurovascular intact distal to injury Treatment Instructions Given : Splint instructions given Sling instructions given BAMBI ADDISON RN - 04/30/2014 18:52 CDT BAMBI ADDISON RN - 04/30/2014 18:52 CDT Source: [employer] Document Id: [id number] CDT!19 Bambi Addison R.N. - 04/30/2014 5:30 PM CDT ED Treatments and Procedures ED Treatments and Procedures Entered On: 04/30/2014 18:52 CDT Performed On: 04/30/2014 17:30 CDT by BAMBI ADDISON RN Peripheral IV Peripheral IV Assess/Intervention Grid Peripheral IV #1 IV Activity : Start, Saline lock Number of Attempts : 1 Date of Insertion : 04/30/2014 CDT IV Site : Hand Laterality : Right Catheter Size : 20 Catheter Type : Protective Site Condition : No complications Drainage Description : None BAMBI ADDISON RN - 04/30/2014 18:50 CDT Source: [employer] Document Id: [id number] CDT!13 Ruiz Marvin M.D. - 04/30/2014 5:22 PM CDT Hand pain-swelling Patient: PUNEET FRIED Age: 28 years Sex: Female : 1985 Author: RUIZ MARVIN MD Attachments: None Associated Diagnosis: Reaction Allergic Active; Hives; Allergy Bee Sting Active Basic Information Time seen: Immediately upon arrival. History source: Patient. Arrival mode: Private vehicle. History limitation: None. Additional information: Chief Complaint from Nursing Triage Note : Chief Complaint Description 04/30/2014 16:22 CDT Chief Complaint Description see triage note 04/30/2014 16:11 CDT Chief Complaint Description was stung by bee last grace and awoke this am with left wrist and hand swollen and red. . History of Present Illness The patient presents with left, hand swelling, wrist pain, wrist swelling, from insect bite yesterday. Not controlled by po benadryl. The onset was 1 days ago. The course/duration of symptoms is constant and worsening. Type of injury: bee sting. The location where the incident occurred was at home. Location: Left hand wrist palm. The character of symptoms is redness, swelling, numbness, dull, throbbing and achy. The degree of pain is moderate. The degree of swelling is minimal. There are exacerbating factors including movement and palpation. There are relieving factors including rest and immobilization. Risk factors consist of none. Prior episodes: none. Review of Systems Constitutional symptoms: Negative except as documented in HPI. Skin symptoms ENMT symptoms: Negative except as documented in HPI. Respiratory symptoms: No shortness of breath, no orthopnea or no cough. Cardiovascular symptoms: Negative except as documented in HPI. Gastrointestinal symptoms: Negative except as documented in HPI. Genitourinary symptoms Musculoskeletal symptoms: Negative except as documented in HPI. Neurologic symptoms: Negative except as documented in HPI. Psychiatric symptoms: Negative except as documented in HPI. Additional review of systems information: All other systems reviewed and otherwise negative. Health Status Allergies: Allergic Reactions (Selected) Severity Not Documented Penicillins- No reactions were documented.. Medications: (Selected) Inpatient Medications Ordered Benadryl: 50 mg, 1 mL, IV Push, Once methylPREDNISolone: 125 mg, 2 mL, IV Push, Once Prescriptions Prescribed Inderal LA 80 mg oral capsule, extended release: 160 mg, 2 cap(s), PO, Daily, 60 cap(s) Mirena 52 mg intrauteral device: See Instructions, placed 02/06/08 ZyrTEC 10 mg oral tablet: 10 mg, 1 tab(s), PO, Daily, use for allergic reaction, 30 tab(s) predniSONE 10 mg oral tablet: See Instructions, 6 tab(s) PO Daily x 3 d then 4 qd x 2 days, 26 tab(s) Documented Medications Documented FLUoxetine 10 mg oral tablet: 20 mg, 2 tab(s), PO, Daily ibuprofen 200 mg oral tablet: See Instructions, 3-4 tabs prn. Immunizations: Include Immunizations Previous diphtheria/pertussis, acel/tetanus adult: Ad hoc dose () 02/06/2008 CDT. Future No future immunizations have been selected or recorded. . Past Medical/ Family/ Social History Medical history: No active or resolved past medical history items have been selected or recorded.. Surgical history: C FULL ROUT OBSTE CARE,VAGINAL DELIV - 5/13/08 - baby boy on 01/03/2008 at 22 Years.. Family history: Cancer Grandmother (maternal) Comments: 03/13/2014 13:47 - JORY COPPOLA [employer] AND FORMER ear Grandfather (maternal) Comments: 03/13/2014 13:47 - JORY COPPOLA LPN larynx Cystic fibrosis Sister CA - Lung cancer Grandmother (paternal, ) Comments: 03/13/2014 13:47 - JORY COPPOLA [employer] AND FORMER brain cancer Hypothyroidism Mother Myocardial infarction Father: onset at 47 . . Social history: Reviewed as documented in chart, Alcohol use: Denies, Tobacco use: Denies, Drug use:Denies, Family/social situation: Intact family. Problem list: All Problems / V22.2 / Confirmed Headache Migraine / 346.90 / Confirmed Headache / 784.0 / Confirmed Dysthymic Disorder / 300.4 / Confirmed. Physical Examination Vital Signs: Vital Signs 04/30/2014 16:11 CDT Temperature Core 36.9 DegC Peripheral Pulse Rate 86 /min Respiratory Rate 20 /min SpO2 98 % Systolic Blood Pressure 145 mmHg HI Diastolic Blood Pressure 81 mmHg Mean Arterial Pressure 102 mmHg BP Location Right upper , Measurements 04/30/2014 16:11 CDT Height 158 cm Height Source Stated Dosing Weight 140.60 kg Actual Weight 140.6 kg Weight Source Bed scale Body Mass Index 56.32 kg/m2 , SpO2 04/30/2014 16:11 CDT SpO2 98 % . General: Alert and mild distress. Skin: Warm, dry, intact, no pallor and swollen over wrist on left. Crepitence . Head: Normocephalic and atraumatic. Eye: Pupils are equal, round and reactive to light, normal conjunctiva and vision grossly normal. Ears, nose, mouth and throat: Oral mucosa moist. Cardiovascular: Normal peripheral perfusion. Respiratory: Lungs are clear to auscultation, respirations are non-labored, breath sounds are equal and Symmetrical chest wall expansion. Chest wall: No tenderness and No deformity. Back: Nontender and Normal alignment. Musculoskeletal: Normal ROM. normal strength. no tenderness. no swelling. Distal upper extremity left, distal, wrist, tenderness, swelling, erythema and . Hand. Gastrointestinal: Soft, Non distended and Normal bowel sounds. Genitourinary Neurological: Alert and oriented to person, place, time, and situation, No focal neurological deficit observed, CN II-XII intact, normal sensory observed, normal motor observed and normal speech observed. Lymphatics: No lymphadenopathy. Psychiatric: Cooperative, appropriate mood & affect and normal judgment. Medical Decision Making Differential Diagnosis:Hand pain, wrist pain, sprain, contusion, allergic reaction. Documents reviewed:Emergency department nurses' notes. Reexamination/ Reevaluation Vital signs results included from flowsheet : Vital Signs 04/30/2014 16:11 CDT Temperature Core 36.9 DegC Peripheral Pulse Rate 86 /min Respiratory Rate 20 /min SpO2 98 % Systolic Blood Pressure 145 mmHg HI Diastolic Blood Pressure 81 mmHg Mean Arterial Pressure 102 mmHg BP Location Right upper Course: improving. Pain status: decreased. Assessment: exam unchanged. Impression and Plan Diagnosis Reaction Allergic Active (Discharge, Emergency medicine, Medical) Hives (Discharge, Emergency medicine, Medical) Allergy Bee Sting Active (Discharge, Emergency medicine, Medical) Plan Condition: Improved, Stable. Disposition: Discharged: to home. Patient was given the following educational materials: ALLERGIC REACTION, Other (Local), ZYRTEC, INSECT BITE. Follow up with: MICHELLE Hudson As Needed For recheck If symptoms worsen. Counseled: Patient, Regarding diagnosis, Regarding diagnostic results, Regarding treatment plan, Regarding prescription, Patient indicated understanding of instructions. Electronically Signed By: RUIZ MARVIN MD On: 04/30/2014 05:30 PM This document has images extracted. Source: [facility] POWERCHART Document Id: [id number]} Bambi Addison RRoverto - 04/30/2014 4:22 PM CDT ED Primary Assessment Document Has Been Updated ED Primary Assessment Entered On: 04/30/2014 16:25 CDT Performed On: 04/30/2014 16:22 CDT by BAMBI ADDISON RN Reason For Visit (As Of: 04/30/2014 16:25:50 CDT) Problems(Active) Dysthymic Disorder (ICD-9-CM :300.4 ) Name of Problem: Dysthymic Disorder ; Onset Date: 08/01/2010 ;Confirmation: Confirmed ; Classification: Medical ; Code: 300.4 ; Contributor System: [facility]_HX_PR_UPLOAD ; Last Updated: 11/18/2013 19:04 CDT ; Life Cycle Status: Active ; Vocabulary: ICD-9-CM ; Comments: - Dysthymic disorder Headache (ICD-9-CM :784.0 ) Name of Problem: Headache ; Onset Date: 10/24/2007 ; Confirmation: Confirmed ; Classification: Medical ; Code: 784.0 ; Contributor System: [facility]_HX_PR_UPLOAD ; Last Updated: 11/18/2013 19:04 CDT ; Life Cycle Status: Active ; Vocabulary: ICD-9-CM ; Comments: - Headache Headache Migraine (ICD-9-CM :346.90 ) Name of Problem: Headache Migraine ; Onset Date: 01/21/2012 ; Recorder: RABIA NATHAN MD; Confirmation: Confirmed ; Classification: Medical ; Code: 346.90 ; Last Updated: 01/22/2012 13:57 CDT ; Life Cycle Status: Active ; Responsible Provider: RABIA NATHAN MD; Vocabulary: ICD-9-CM (ICD-9-CM :V22.2 ) Name of Problem: ; Onset Date: 2007 ; Recorder: GLEN ACOSTA; Confirmation: Confirmed ; Classification: Medical ; Code: V22.2 ; Contributor System: [employer] ; Last Updated: 01/21/2012 9:41 CDT ; Life Cycle Date: 01/12/2012 ; Life Cycle Status: Active ; Responsible Provider: GLEN ACOSTA; Vocabulary: ICD-9-CM Diagnoses(Active) Hand pain-swelling Date: 04/30/2014 ; Diagnosis Type: Reason For Visit ; Confirmation: Complaint of ; Clinical Dx: Hand pain-swelling ; Classification: Medical ; Clinical Service: Emergency medicine ; Code: PNED ; Probability: 0 ; Diagnosis Code: [id number] Triage Chief Complaint Description : see triage note Mode of Arrival ED : Private vehicle, Ambulatory Track : Medical Languages : Mauritian Is Patient Female and 13-50 no hysterectomy : Yes Status : Patient denies Are you ? : No Treatments Prior to Arrival : None BAMBI ADDISON RN - 04/30/2014 16:22 CDT Pain Assessment Pain Symptoms : Yes BAMBI ADDISON RN - 04/30/2014 16:22 CDT Respiratory Airway : Patent Respirations : Unlabored Respiratory Pattern : Regular BAMBI ADDISON RN - 04/30/2014 16:22 CDT Cardiovascular Heart Rhythm : Regular Skin Color : Normal for ethnicity Skin Description : Dry Skin Temperature : Warm BAMBI ADDISON RN - 04/30/2014 16:22 CDT Neurological Last Well Time Known : Not applicable Level of Consciousness : Alert Orientation : Oriented x 3 Characteristics of Speech : Clear BAMBI ADDISON RN - 04/30/2014 16:22 CDT ED Psychosocial Affect/Behavior : Calm, Cooperative, Appropriate Domestic Abuse Concerns : None BAMBI ADDISON RN - 04/30/2014 16:22 CDT Gastrointestinal Nutrition ED : Adequate BAMBI ADDISON RN - 04/30/2014 16:22 CDT /OB Assessment Sexually Active : Yes Contraception Used : Yes Contraception Type : Other: LEVI RING : 1 BAMBI ADDISON RN - 04/30/2014 16:22 CDT Musculoskeletal Fall Prevention Education Provided : BAMBI EDMONDS RN - 04/30/2014 16:22 CDT Social Habits Tobacco Use/Currently Using : Yes Exposure to Tobacco Smoke : Patient smokes Smoking Status : Current every day smoker BAMBI ADDISON RN - 04/30/2014 16:22 CDT Tobacco Use Grid Type : Cigarettes Cigarette Use Packs/Day : 0.5 Last Use : 04/30/2014 BAMBI ADDISON RN - 04/30/2014 16:22 CDT Alcohol Use Grid Alcohol Use : Yes BAMBI ADDISON RN - 04/30/2014 16:22 CDT Recreational Drug Use Grid Drug Use : None BAMBI ADDISON RN - 04/30/2014 16:22 CDT Source: [facility] [employer] Document Id: [id number] CDT!53 Bambi Addison R.N. - 04/30/2014 4:11 PM CDT ED Triage Assessment Document Has Been Updated ED Triage Assessment Entered On: 04/30/2014 16:17 CDT Performed On: 04/30/2014 16:11 CDT by BAMBI ADDISON RN Reason For Visit (As Of: 04/30/2014 16:17:45 CDT) Problems(Active) Dysthymic Disorder (ICD-9-CM :300.4 ) Name of Problem: Dysthymic Disorder ; Onset Date: 08/01/2010 ;Confirmation: Confirmed ; Classification: Medical ; Code: 300.4 ; Contributor System: [facility]_HX_PR_UPLOAD ; Last Updated: 11/18/2013 19:04 CDT ; Life Cycle Status: Active ; Vocabulary: ICD-9-CM ; Comments: - Dysthymic disorder Headache (ICD-9-CM :784.0 ) Name of Problem: Headache ; Onset Date: 10/24/2007 ; Confirmation: Confirmed ; Classification: Medical ; Code: 784.0 ; Contributor System: [employer]_[facility]_PR_UPLOAD ; Last Updated: 11/18/2013 19:04 CDT ; Life Cycle Status: Active ; Vocabulary: ICD-9-CM ; Comments: - Headache Headache Migraine (ICD-9-CM :346.90 ) Name of Problem: Headache Migraine ; Onset Date: 01/21/2012 ; Recorder: RABIA NATHAN MD; Confirmation: Confirmed ; Classification: Medical ; Code: 346.90 ; Last Updated: 01/22/2012 13:57 CDT ; Life Cycle Status: Active ; Responsible Provider: RABIA NATHAN MD; Vocabulary: ICD-9-CM (ICD-9-CM :V22.2 ) Name of Problem: ; Onset Date: 2007 ; Recorder: GLEN ACOSTA; Confirmation: Confirmed ; Classification: Medical ; Code: V22.2 ; Contributor System: [employer] ; Last Updated: 01/21/2012 9:41 CDT ; Life Cycle Date: 01/12/2012 ; Life Cycle Status: Active ; Responsible Provider: GLEN ACOSTA; Vocabulary: ICD-9-CM Diagnoses(Active) Hand pain-swelling Date: 04/30/2014 ; Diagnosis Type: Reason For Visit ; Confirmation: Complaint of ; Clinical Dx: Hand pain-swelling ; Classification: Medical ; Clinical Service: Emergency medicine ; Code: PNED ; Probability: 0 ; Diagnosis Code: [id number] Triage Chief Complaint Description : was stung by bee last grace and awoke this am with left wrist and hand swollen and red. Information Given By : Patient Accompanied By : Alone Mode of Arrival ED : Private vehicle, Ambulatory Track : Medical Languages : Mauritian Patient Informed of Triage Location : Emergency department Vital Signs Assessed : Yes Is Patient Female and 13-50 no hysterectomy : Yes Status : Patient denies Are you ? : No Treatments Prior to Arrival : None BAMBI ADDISON SHRUTHI - 04/30/2014 16:11 CDT Vital Signs Temperature Core : 36.9 DegC(Converted to: 98.4 DegF) Peripheral Pulse Rate : 86 /min Respiratory Rate : 20 /min Systolic Blood Pressure : 145 mmHg (HI) Diastolic Blood Pressure : 81 mmHg NIBP Mean : 102 mmHg BP Location : Right upper extremity SpO2 : 98 % Oxygen Therapy : Room air Height : 158 cm(Converted to: 5 ft 2 inch(es)) Actual Weight : 140.6 kg Actual Weight Conversion to Pounds : 309.32 lb Weight Source : Bed scale Height Source : Stated Body Mass Index : 56.32 kg/m2 BAMBI ADDISON Maureen HAWKINS - 04/30/2014 16:11 CDT Pain Assessment Pain Symptoms : Yes BAMBI ADDISON SHRUTHI - 04/30/2014 16:11 CDT Pain Pain Assessment Grid Pain 1 Location : Wrist Laterality : Left Intensity : 6 Onset : Gradual Duration : 8hours BAMBI ADDISON SHRUTHI - 04/30/2014 16:11 CDT ED Physician Notification Time ED Physician Notification Time : 04/30/2014 16:17 CDT BAMBI ADDISON SHRUTHI - 04/30/2014 16:11 CDT JAYDEN JAYDEN Level 1 : No JAYDEN Level 2 : No JAYDEN Level 3 : One BAMBI ADDISON SHRUTHI - 04/30/2014 16:11 CDT DCP GENERIC CODE Tracking Acuity : 4 -Less Urgent Tracking Group : [facility] ED BAMBI ADDISON SHRUTHI - 04/30/2014 16:11 CDT Allergy (As Of: 04/30/2014 16:17:45 CDT) Allergies (Active) penicillins Estimated Onset Date: Unspecified ; Created By: GLEN ACOSTA; Reaction Status: Active ;Category: Drug ; Substance: penicillins ; Type: Allergy ; Updated By: GLEN ACOSTA; Reviewed Date: 03/13/2014 13:40 CDT Source: [employer] Document Id: [id number] CDT!49 documented in this encounter Miscellaneous Notes Miscellaneous - Bambi Addison R.N. - 04/30/2014 7:00 PM CDT Valuables/Belongings Valuables/Belongings Entered On: 04/30/2014 19:00 CDT Performed On: 04/30/2014 19:00 CDT by BAMBI ADDISON RN Valuables/Belongings Valuables/Belongings Grid Valuables with Patient Clothes, Patient Valuables : Pants, Shirt, Shoes, Undergarments Electronic Devices : Cell phone BAMBI ADDISON RN - 04/30/2014 19:00 CDT Source: [employer] Document Id: [id number] CDT!6 Miscellaneous - Bambi Addison R.N. - 04/30/2014 4:05 PM CDT Facility Charge Ticket 2.0 11.0 DX Facility Charge Ticket 2.0 11.0 DX Entered On: 04/30/2014 19:00 CDT Performed On: 04/30/2014 16:05 CDT by BAMBI ADDISON RN Facility Charge Ticket 2.0 11.0 DX ED Other Charges : Standard ED Encounter TVL Level Translated RTF : Hand pain-swelling TVL:3 TVL Level for Facility Charge Ticket : Level 3 Arrival Mode Calc : 1 Mode of Arrival ED : Private vehicle, Ambulatory [place]x Mode of Arrival Interpreted : Standard Lynx Process Management : None Lynx Order Management : None 30 Minutes Critical Care : No Nursing Notes RTF : Triage Forms ED Triage Assessment,04/30/14 16:11,BAMBI ADDISON RN Nursing Notes ED Primary Assessment,04/30/14 16:22,BAMBI ADDISON RN ED Pain Assessment,04/30/14 18:59,BAMBI ADDISON RN [place]x Nursing Assessment : Triage and 1-2 nursing assessments Lynx Disposition : Discharge Disposition RTF : discharge Lynx Total Points with Diagnosis Control : 5 Lynx Visit Level : 17177 Level 3 Treatments Prior to Arrival : None BAMBI ADDISON RN - 04/30/2014 19:00 CDT Source: [facility] [employer] Document Id: [id number] CDT!18 documented in this encounter Plan of Treatment Scheduled Procedures Name Priority Associated Diagnoses Date/Time COLONOSCOPY Diarrhea documented as of this encounter Visit Diagnoses Not on filedocumented in this encounter Additional Health Concerns Assessment Noted Time PHQ-9 Depression Total Score: 16 04/02/2014 9:58 AM CD T documented as of this encounter
--- OUTSIDE RECORDS SUMMARY | 2022-06-29 09:33 | XMS_ITS | Encounter Summary ---
:1985 Author Organization [facility] Address [address] [place] [address] Care Team Providers Name Role Phone Unavailable Primary Care Provider Unavailable Encounter Details Date Type Department Care Team Description 03/13/[address] [facility] Michelle Bear M.D. [address] [place] [address] (Wo rk) Social History Tobacco Use Types [...] or relatives? How often do you attend amish or moravian More than 4 time s per year 07/09/2020 services? Do you belong to any clubs or organizations No 04/19/2019 such as amish groups, unions, fraternal or athletic groups, or [...] Sign Reading Time Taken Comments Blood Pressure 112/84 03/13/2014 1:50 PM CDT Pulse 72 03/13/2014 1:50 PM CDT Temperature - - Respiratory Rate - - Oxygen Saturation - - Inhaled Oxygen Concentration - - Weight 139 kg (306 lb) 03/13/2014 1:50 PM CDT Height 158 cm (5' 2.21) 03/13/2014 1:50 PM CDT Body Mass Index 55.6 03/13/2014 1:50 PM CDT documented in this encounter Progress Notes Michelle Bear M.D. - 03/13/2014 1:30 PM CDT [id number] A 28-year-old female is here to establish care. She lives in [place] with the father of her son, who is 6 years old. She states they have been together for about 8 years. They are thinking about perhaps another this fall. She delivered here in [place] [address] Kinney[address] Her was complicated by end-stage -induced hypertension with multiple attempts at failedinduction and subsequent intrapartum fever which resulted in her son requiring special care with supplemental oxygen, according to this patient. She states that since delivery of her son, she has had problems with obesity, which she says may be related to Mirena IUD. She recently had her second MirenaIUD placed. She states that obesity runs in her family. Two of her aunts have had bariatric surgery and that she otherwise is healthy and tries to walk regularly. She also states that in sixth grade, she was diagnosed with ADHD, and she is interested in being on medication for that. Additionally, she states that she had a history of depression in the past. She saw Kaye Magallanes for therapy and felt that was beneficial. She did not get any benefit out of medication and she is interested in resuming visits with Kaye Magallanes. She does not have any suicidal thoughts or ideations. PHQ-9 form is filled out and reviewed today. SOCIAL HISTORY She smokes approximately 1/2 pack a day and has done so for 10 years. PHYSICAL EXAMINATION GENERAL: She otherwise is cooperative nondistressed female. VITAL SIGNS: Blood pressure 112/84. BMI is 55.6. This is a 25 minute appointment total time, 25 minute counseling time, spent reviewing the followin. Regarding bariatric management. Given her young age, her super morbid obesity with a BMI over 55 and family history, I would like to refer her to Laura, to the bariatric program. I believe that she could benefit from multifactorial counseling, including surgical and nonsurgical interventions and treatment, as well as a full spectrum evaluation. 2. Additionally, in regard to attention deficit disorder, I have explained to her that over 50% of children who took medication for ADD/ADHD during childhood do not need this medication in adulthood. Kevin happy to have her establish care with psychologist or psychiatry, who can do further diagnostic and assessment testing to determine whether or not ADHD is a current diagnosis for her, with recommendations as to whether medications would be used, but that I would not start medications for her in theabsence of this evaluation. Additionally, if she were to be on ADHD medications, would have to benefit risks and balance of diagnosis with risks and benefits of medications, including but not limited to, cardiovascular side effects. The patient is not in need of any medication refills at this time. She has not, to her knowledge, had screening done for high cholesterol and for diabetes, and these will be ordered for her as well as a TSH and CBC. 3. Regarding weight concerns for her, she may return to see me once she has had her psychiatry and psychology evaluations. Michelle Bear M.D./robb Electronically Signed By: MICHELLE BEAR MD On: 03/14/2014 12:48 PM Source: [facility] MHSDOLBEYNONRADSYS Document Id: [id number] documented in this encounter Miscellaneous Notes Miscellaneous - Nicolette Moise, JOSEFA, C.N.P. - 05/28/2014 2:00 PM CDT Ambulatory Patient Summary [facility] [address], [address] [place], [place] [id number] Visit Information Name: PUNEET FRIED [facility] Number: [id number] Current Date: 05/28/2014 14:00:54 Physicians Attending Provider: MICHELLE BEAR MD Primary Care Provider: MICHELLE BEAR MD FRIEDPUNEET CLAY has been given the following list of follow-up instructions, medication list, and patient education materials: Follow-up Instructions Your Medications Here is a list of your medications. It is important to take your medications as directed. Use a pillbox or chart to help remind you to take your medications. Please let your doctor or nurse know if you have problems taking your medications. Medication/Strength Dose Route Frequency Indications/Special Instructions/Comments/Notes benzonatate (Tessalon Perles 100 mg oral capsule) 100 mg Oral three times a day for 7 Days azithromycin (Zithromax Z-Kirit 250 mg oral tablet) 2 tablets on day 1, then 1 tablet on days 2-5 Oralas directed for 5 Days FLUoxetine (FLUoxetine 10 mg oral tablet) 20 mg Oral once a day levonorgestrel (Mirena 52 mg intrauteral device) See Instructions placed 02/06/08 ibuprofen (ibuprofen 200 mg oral tablet) See Instructions 3-4 tabs prn propranolol (Inderal LA 80 mg oral capsule, extended release) 160 mg Oral once a day Attention: If you have any medications at [...] Dysthymic Disorder Active 08/01/2010 11/18/13 Dysthymic disorder Your Upcoming Appointments Date Time Location Provider No Appointments found Attention: Contact your local Clinic if further appointment detail needed. Your Goals/Additional instructions: Source: [facility] POWERCHART Document Id: [id number] Miscellaneous - Nicolette Moise APRN, C.N.P. - 05/28/2014 2:00 PM CDT Ambulatory Discharge Medication List [facility] [address] [place], [place] [id number] Visit Information Name: PUNEET FRIED [facility] Number: [id number] Visit Date: 05/28/2014 14:00:53 Attending Provider: MICHELLE BEAR MD Primary Care Provider: MICHELLE BEAR MD PUNEET FRIED has been given the following list of medications: Your Medications It is important to take your medications as directed. Use a pill box or chart to help remind you to take your medications. Please let your doctor or nurse know if you have problems taking your medications. Medication/Strength Dose Route Frequency Indications/Special Instructions/Comments/Notes benzonatate (Tessalon Perles 100 mg oral capsule) 100 mg Oral three times a day for 7 Days azithromycin (Zithromax Z-Kirit 250 mg oral tablet) 2 tablets on day 1, then 1 tablet on days 2-5 Oralas directed for 5 Days FLUoxetine (FLUoxetine 10 mg oral tablet) 20 mg Oral once a day levonorgestrel (Mirena 52 mg intrauteral device) See Instructions placed 02/06/08 ibuprofen (ibuprofen 200 mg oral tablet) See Instructions 3-4 tabs prn propranolol (Inderal LA 80 mg oral capsule, extended release) 160 mg Oral once a day Attention: If you have any medications at [...] Signed By: Signed On: Additional Information: Source: [facility] POWERCHART Document Id: [id number] Miscellaneous - Jory Coppola L.P.N. - 03/14/2014 8:25 AM CDT PHQ-9 PHQ-9 Entered On: 03/14/2014 8:26 CDT Performed On: 03/14/2014 8:25 CDT by JORY COPPOLA LPN PHQ-9 Little interest or pleasure in doing things : Several days Feeling down, depressed, or hopeless : Several days Trouble falling or staying asleep, or sleeping too much : Several days Feeling tired or having little energy : More than half the days Poor appetite or overeating : More than half the days Feeling bad about yourself or that you are a failure : More than half the days Trouble concentrating on things : Several days Moving or speaking slowly; restless or fidgety : Several days Thoughts that you would be better off /hurting self : Not at all PHQ-9 Calculated Score : 11 Problems make work, home, or dealing with others : Very difficult JORY COPPOLA LPN - 03/14/2014 8:25 CDT Source: [employer] Document Id: [id number] CDT!13 Miscellaneous - Jory Coppola L.P.N. - 03/13/2014 1:50 PM CDT Adult Learning Support Aide Intake/History Adult Learning Support Aide Intake/History Entered On: 03/13/2014 13:53 CDT Performed On: 03/13/2014 13:50 CDT by JORY COPPOLA LPN Intake Chief Complaint : est care- discuss ADD and weight concerns Temperature Core : 36.4 DegC(Converted to: 97.5 DegF) (LOW) Peripheral Pulse Rate : 72 /min Heart Rhythm : Regular Systolic Blood Pressure : 112 mmHg Diastolic Blood Pressure : 84 mmHg NIBP Mean : 93 mmHg Height : 158 cm(Converted to: 5 ft 2 inch(es), 62 inch(es)) Actual Weight : 138.8 kg(Converted to: 306 lb 0 oz) Weight Source : Standing scale Dosing Weight Clinic : 138.8 kg Clinic BSA : 2.47 Body Mass Index : 55.6 kg/m2 JORY COPPOLA LPN - 03/13/2014 13:50 CDT General Info Information Given By : Patient Languages : Greenlandic JORY COPPOLA LPN - 03/13/2014 13:50 CDT Subjective Pain Symptoms : No JORY COPPOLA LPN - 03/13/2014 13:50 CDT Dependent Habits Tobacco Use/Currently Using : Yes Exposure to Tobacco Smoke : Patient smokes Smoking Status : Current every day smoker JORY COPPOLA JEANETTE - 03/13/2014 13:50 CDT Tobacco Use Grid Type : Cigarettes Cigarette Use Packs/Day : 0.5 STEPHANIE COPPOLAY Esther JEANETTE - 03/13/2014 13:50 CDT Alcohol Use : Yes JORY COPPOLA LPN - 03/13/2014 13:50 CDT Caffeine Use Grid Caffeine Use : Current Type : Coffee, Soft drinks Frequency : Daily ANATSTEPHANIEFrancisca Santana LPN - 03/13/2014 13:50 CDT Recreational Drug Use Grid Drug Use : None JORY COPPOLA LPN - 03/13/2014 13:50 CDT Source: [employer] Document Id: [id number] CDT!37 Miscellaneous - Jory Coppola L.P.N. - 03/13/2014 1:49 PM CDT Health Assessment Health Assessment Entered On: 03/13/2014 13:50 CDT Performed On: 03/13/2014 13:49 CDT by JORY COPPOLA LPN Health Assessment Complete Health Assessment Complete or Modified : Annual Health Assessment Annual Health Assessment Completed : Yes JORY COPPOLA LPN - 03/13/2014 13:49 CDT Nutrition Nutrition Risk Factors by History Adult : None JORY COPPOLA LPN - 03/13/2014 13:49 CDT Functional Current Daily Living Assistance : None Mobility Assistance Prior to Admission : Independent JORY COPPOLA LPN - 03/13/2014 13:49 CDT Dependent Habits Tobacco Use/Currently Using : Yes Exposure to Tobacco Smoke : Patient smokes Smoking Status : Current every day smoker ANAT JORY Santana LPN - 03/13/2014 13:49 CDT Tobacco Use Grid Type : Cigarettes Cigarette Use Packs/Day : 0.5 JORY COPPOLA LPN - 03/13/2014 13:49 CDT Alcohol Use : Yes JORY COPPOLA LPN - 03/13/2014 13:49 CDT Caffeine Use Grid Caffeine Use : Current Type : Coffee, Soft drinks Frequency : Daily ANATJORY JEANETTE - 03/13/2014 13:49 CDT Recreational Drug Use Grid Drug Use : None ANATJORY JEANETTE - 03/13/2014 13:49 CDT AUDIT Tool How Often Do You Have A Drink : Monthly or less How Many Drinks in a Day When Drinking : 1 or 2 Six or More Drinks On One Occassion : Never Audit Phase 1 Score : 1 ANATJORY JEANETTE - 03/13/2014 13:49 CDT Psychosocial Domestic Abuse Concerns : None Zoroastrian Preference : No qualifying data available. ANAT JORY Esther JEANETTE - 03/13/2014 13:49 CDT Advance Directive Advanced Directives : No JORY COPPOLA LPN - 03/13/2014 13:49 CDT Educ Needs Learning Style Preference Adult Grid Patient : None Family : None JORY COPPOLA LPN - 03/13/2014 13:49 [address] [facility] Document Id: [id number] CDT!40 documented in this encounter Plan of Treatment Scheduled Procedures Name Priority Associated Diagnoses Date/Time COLONOSCOPY Diarrhea documented as of this encounter Visit Diagnoses Not on filedocumented in this encounter Additional Health Concerns Assessment Noted Time PHQ-9 Depression Total Score: 11 03/14/2014 8:25 AM CD T documented as of this encounter
--- OUTSIDE RECORDS SUMMARY | 2022-06-29 09:33 | XMS_ITS | Encounter Summary ---
:1985 Author Organization [facility] Address [address] [place] [id number] Care Team Providers Name Role Phone Unavailable Primary Care Provider Unavailable Encounter Details Date Type Department Care Team Description 12/13/2014 Hospital Encounter [facility]X [facility] Maureen Berman P.A.-C., M.S. [address] [place] [address] [phone] (Wo rk) Social History Tobacco Use Types [...] or relatives? How often do you attend orthodoxy or rastafarian More than 4 time s per year 07/09/2020 services? Do you belong to any clubs or organizations No 04/19/2019 such as orthodoxy groups, unions, fraternal or athletic groups, or [...] Sign Reading Time Taken Comments Blood Pressure 132/98 12/13/2014 10:15 AM CDT Pulse 72 12/13/2014 9:48 AM CDT Temperature - - Respiratory Rate - - Oxygen Saturation - - Inhaled Oxygen Concentration - - Weight 145 kg (318 lb 12.6 oz) 12/13/2014 9:48 AM CDT Height 158 cm (5' 2.21) 12/13/2014 10:15 AM CDT Body Mass Index 57.92 12/13/2014 9:48 AM CDT documented in this encounter Progress Notes Alison Berman P.A.-C., M.S. - 12/13/2014 9:40 AM CDT [id number] CHIEF COMPLAINT/REASON FOR VISIT Recheck headaches. HISTORY OF PRESENT ILLNESS Puneet is here for a recheck of her headaches. Previously seen by myself, 11/01/2014, please refer to that note for full details. Impression was headache, NOS, symptoms of both tension and migraine headaches. Started her on amitriptyline 10 mg, Imitrex and consult made to Physical Therapy. States she d oes not feel the amitriptyline was helping so this has been discontinued. Imitrex does make migraines go away with a single dose, however, she is in need of a refill. She has been experiencing some dental pain this week and was taking the Imitrex almost every single day. Physical Therapy actually seems to be the most helpful for her, and she will be continuing with this. Overall headaches improved. Additional concerns include: Dysthymia. PHQ-9 administered in the clinic. No thoughts of suicide or self-harm. Additional concern, dental pain x2 weeks, worse in the past 1 week localized to a chipped tooth, right upper jaw. Dentist appointment scheduled next Wednesday. Denies any fever or chills, dysphagia, odynophagia, cough, dyspnea or wheezing. MEDICATIONS Per Cerner. ALLERGIES Per Cerner. SYSTEMS REVIEW Negative except as per HPI. VITAL SIGNS Temperature 36.2, blood pressure 132/98, heart rate 72. PHYSICAL EXAMINATION GENERAL: Patient is a 28-year-old female, alert, in no acute distress. MENTAL STATUS: Affect appropriate. Speech normal. No thoughts of suicide or self-harm. NEUROLOGIC: Grossly intact. MOUTH: Erythema, edema of gums surrounding chipped tooth, right upper jaw, concerning for infection. NECK: Lymph nodes enlarged on the right side. Nontender. IMPRESSION/REPORT/PLAN 1. Headache, not otherwise specified. Discontinue amitriptyline. Start venlafaxine 37.5 mg oral tablet extended release, 1 tablet daily x1 week, then increase to 2 tabs as tolerated. Reviewed adverse effects. Recheck in 4 to 6 weeks, sooner as needed. Refill provided on Imitrex. Continue with Physical Therapy. 2. Dental pain. Start clindamycin 300 mg, 1 cap every 6 hours x7 days. Toradol intramuscularly administered in the clinic. A small amount of Vicodin for severe pain only. Keep scheduled appointment with dentist. Recheck Family Practice as needed. Patient understands and agrees with this plan. Alison Monaco P.A.-C./robb Electronically Signed By: ALISON MONACO PA-C On: 12/20/2014 09:46 AM Modified by and Electronically Signed by: ALISON MONACO PA-C On: 12/20/2014 09:46 AM Source: [facility] MHSDOLBEYNONRADSYS Document Id: [id number] documented in this encounter Nursing Notes Alison Berman P.A.-C., M.S. - 12/13/2014 10:41 AM CDT Ambulatory Patient Education The following Patient Education Materials have been given to the patient: Patient Education Materials: Ambulatory DENTAL PAIN Ambulatory Dental Pain A crack or cavity in the tooth, which exposes the sensitive inner area of the tooth can cause tooth pain. An infection in the gum or the root of the tooth can cause pain and swelling. The pain is oftenmade worse by drinking hot or cold fluids, or biting on hard foods. Pain may spread from the tooth to the ear or jaw on the same side. Home Care: Avoid hot and cold foods and liquids since your tooth may be sensitive to temperature changes. If your tooth is chipped or cracked, or if there is a large open cavity, apply OIL OF CLOVES (available ovfp-qyd-urliggp in drug stores) directly to the tooth to reduce pain. Some pharmacies carry an gvcz-fhl-wvfytfu toothache kit. This contains a paste, which can be applied over the exposed tooth to decrease sensitivity. A cold pack on your jaw over the sore area may help reduce pain. You may use acetaminophen (Tylenol) or ibuprofen (Motrin, Advil) to control pain, unless another medicine was prescribed. [ NOTE: If you have chronic liver or kidney disease or ever had a stomach ulceror GI bleeding, talk with your doctor before using these medicines.] If you have signs of an infection, an antibiotic will be given. Take it as directed. Follow-Up as directed with a dentist. Your pain may go away with the treatment given. However, only a dentist can fully evaluate and treat the cause and prevent the pain from coming back again. TOOTHACHE IS A SIGN OF DISEASE IN YOUR TOOTH AND SHOULD BE EXAMINED AND TREATED BY A DENTIST. Get Prompt Medical Attention if any of the following occur: ?? Your face becomes swollen or red ?? Pain worsens or spreads to the neck ?? Fever over 100.4?? F (38.0?? C) ?? Unusual drowsiness; headache or stiff neck; weakness or fainting ?? Pus drains from the tooth ?? Difficulty swallowing or breathing ?? [id number], [place] [address]. All rights reserved. This information is not intended as a substitute for professional medical care. Always follow your healthcare professional's instructions. This document has images extracted. Please consider using [employer] for all your patient education needs. Source: [facility] POWERCHART Document Id: [id number] Glen Graf L.P.N. - 12/13/2014 10:15 AM CDT Nurse Only Documentation Nurse Only Documentation Entered On: 12/13/2014 10:16 CDT Performed On: 12/13/2014 10:15 CDT by GLEN GRAF LPN Nurse Only Documentation Nurse Only Visit Documentation : recheck BP GLEN GRAF LPN - 12/13/2014 10:15 CDT Vitals/Ht/Wt Systolic Blood Pressure : 132 mmHg Diastolic Blood Pressure : 98 mmHg (>HHI) NIBP Mean : 109 mmHg Height : 158 cm(Converted to: 5 ft 2 inch(es), 62 inch(es)) GLEN GRAF LPN - 12/13/2014 10:15 CDT Source: [facility] POWERCHART Document Id: [id number] CDT!8 documented in this encounter Miscellaneous Notes Miscellaneous - Chandirka Ruffin R.N. - 12/13/2014 4:02 PM CDT Med Management Document Contains Addenda Addendum by ALISON MONACO PA-C on 14 December 2014 09:24:06 CDT From: ALISON MONACO PA-C To: Nurseline/Refill Nurse; Sent: 12/14/2014 09:24:06 CDT Subject: RE: Med Management Already done. Addendum by ALISON MONACO PA-C on 14 December 2014 09:23:50 CDT Not Approved: Order:venlafaxine (venlafaxine 37.5 mg oral capsule, extended release) 1 cap(s) PO Daily Take one capsule by mouth daily for one week then increase to two capsules daily thereafter if tolerated Qty: 60 cap(s) Refills: 3 Substitutions Allowed Route To Pharmacy - Before the Call [facility] [place] Other (See Comment) Already done. Signed by ALISON MONACO PA-C From: CHANDRIKA RUFFIN RN ( Nurseline/Refill Nurse) To: ALISON MONACO PA-C; Sent: 12/13/2014 16:02:50 CDT Subject: Med Management On hold pending signature Order:venlafaxine (venlafaxine 37.5 mg oral capsule, extended release) 1 cap(s) PO Daily Take one capsule by mouth daily for one week then increase to two capsules daily thereafter if tolerated Qty: 60 cap(s) Refills: 3 Substitutions Allowed Route To Pharmacy - [email or web address] [id number] Tablet form not available. Please switch to capsule Source: [facility] POWERCHART Document Id: [id number] Miscellaneous - Alison Berman P.A.-C., M.S. - 12/13/2014 10:41 AM CDT Ambulatory Patient Summary [facility] [address], [address] Marko Fonseca [place] [id number] Visit Information Name: PUNE[facility] FRIED [facility] Number: [id number] Current Date: 12/13/2014 10:41:40 Physicians Attending Provider: ALISON MONACO PA-C Primary Care Provider: MICHELLE BEAR MD, AMANDA KAY has been given the following list of [...] Instructions/Comments/Notes for Patient Medication Changes/Routing clindamycin (clindamycin 300 mg oral capsule) 1 cap, Oral, every 6 hours x 7 day(s) New Routed to [place] [id number] [place] [id number] HYDROcodone-acetaminophen (Vicodin 5 mg-300 mg oral tablet) 1 Tablet(s), Oral, every 6 hours as needed for Pain No more than 4,000mg acetaminophen/24hrs New Routed to [facility] ibuprofen (ibuprofen 200 mg oral tablet) See Instructions 3-4 tabs prn SUMAtriptan (SUMAtriptan 50 mg oral tablet) 1 Tablet(s), Oral, as directed as needed for Migraine headache Take 1 tablet at onset of headache. Repeat after two hours if needed. Routed to [facility] [address] [place] [id number] venlafaxine (venlafaxine 37.5 mg oral tablet, extended release) 1 Tablet(s), Oral, once a day 1 tab daily x 1 week. Then increase to 2 tabs daily as tolerated. New Routed to [place] [address] [place] [id number] Stop Taking the Following Medications: amitriptyline (amitriptyline 10 mg oral tablet) Medication list as of 12-13-14 10:41 Attention: If you have any medications at home that are not on this list, DO NOT take them until youcontact your provider for clarification. Give a copy of your medication list to your primary care provider. Update your medication list any time medications or doses are changed and carry your medication list at all times in case of emergency. Electronically Signed By: ALISON MONACO PA-C Signed On:13-DEC-2014 10:41:02 Your Allergies & Intolerances Substance Reaction Symptoms Category Comments penicillins Drug Your Problem List Problem Status Onset Comments Active 08/23/2007 Headache Migraine Active 01/21/2012 Headache Active 10/24/2007 11/18/13 Headache Dysthymic Disorder Active 08/01/2010 11/18/13 Dysthymic disorder Abuse Tobacco Smoking NOS Active Your Upcoming Appointments Date Time Location Provider No Appointments found Attention: Contact your local Clinic if further appointment detail needed. Dental Pain A crack or cavity in the tooth, which exposes the sensitive inner area of the tooth can cause tooth pain. An infection in the gum or the root of the tooth can cause pain and swelling. The pain is oftenmade worse by drinking hot or cold fluids, or biting on hard foods. Pain may spread from the tooth to the ear or jaw on the same side. Home Care: Avoid hot and cold foods and liquids since your tooth may be sensitive to temperature changes. If your tooth is chipped or cracked, or if there is a large open cavity, apply OIL OF CLOVES (available isre-vhb-isfzboq in drug stores) directly to the tooth to reduce pain. Some pharmacies carry an lycq-lpl-ubvvspd toothache kit. This contains a paste, which can be applied over the exposed tooth to decrease sensitivity. A cold pack on your jaw over the sore area may help reduce pain. You may use acetaminophen (Tylenol) or ibuprofen (Motrin, Advil) to control pain, unless another medicine was prescribed. [ NOTE: If you have chronic liver or kidney disease or ever had a stomach ulceror GI bleeding, talk with your doctor before using these medicines.] If you have signs of an infection, an antibiotic will be given. Take it as directed. Follow-Up as directed with a dentist. Your pain may go away with the treatment given. However, only a dentist can fully evaluate and treat the cause and prevent the pain from coming back again. TOOTHACHE IS A SIGN OF DISEASE IN YOUR TOOTH AND SHOULD BE EXAMINED AND TREATED BY A DENTIST. Get Prompt Medical Attention if any of the following occur: ?? Your face becomes swollen or red ?? Pain worsens or spreads to the neck ?? Fever over 100.4? F (38.0? C) ?? Unusual drowsiness; headache or stiff neck; weakness or fainting ?? Pus drains from the tooth ?? Difficulty swallowing or breathing ?? [id number] [place] [address]. All rights reserved. This information is not intended as a substitute for professional medical care. Always follow your healthcare professional's instructions. Your Goals/Additional instructions: This document has images extracted. Please consider using [employer] for all your patient education needs. Source: [facility] POWERCHART Document Id: [id number] Miscellaneous - Alison Berman P.A.-C., M.S. - 12/13/2014 10:41 AM CDT Ambulatory Discharge Medication List [facility] [address], [address] [place], [place] [id number] Visit Information Name: PUNEET FRIED [facility] Number: [id number] Visit Date: 12/13/2014 10:41:39 Attending Provider: ALISON MONACO PA-C Primary Care Provider: MICHELLE BEAR MD, AMANDA KAY has been given the following list of medications: Your Medications It is important to take your medications as directed. Use a pill box or chart to help remind you to take your medications. Please let your doctor or nurse know if you have problems taking your medications. Medication/Strength How to Take Indications/Special Instructions/Comments/Notes for Patient Medication Changes/Routing clindamycin (clindamycin 300 mg oral capsule) 1 cap, Oral, every 6 hours x 7 day(s) New Routed to [place] [address] [place] [address] [id number] HYDROcodone-acetaminophen (Vicodin 5 mg-300 mg oral tablet) 1 Tablet(s), Oral, every 6 hours as needed for Pain No more than 4,000mg acetaminophen/24hrs New Routed to [place] ibuprofen (ibuprofen 200 mg oral tablet) See Instructions 3-4 tabs prn SUMAtriptan (SUMAtriptan 50 mg oral tablet) 1 Tablet(s), Oral, as directed as needed for Migraine headache Take 1 tablet at onset of headache. Repeat after two hours if needed. Routed to [place] [address] [place] [address] [id number] venlafaxine (venlafaxine 37.5 mg oral tablet, extended release) 1 Tablet(s), Oral, once a day 1 tab daily x 1 week. Then increase to 2 tabs daily as tolerated. New Routed to [place] [address] [place] [id number] Stop Taking the Following Medications: amitriptyline (amitriptyline 10 mg oral tablet) Medication list as of 12-13-14 10:41 Attention: If you have any medications at home that are not on this list, DO NOT take them until youcontact your provider for clarification. Give a copy of your medication list to your primary care provider. Update your medication list any time medications or doses are changed and carry your medication list at all times in case of emergency. Electronically Signed By: ALISON MONACO PA-C Signed On:13-DEC-2014 10:41:02 Additional Information: Source: [facility] POWERCHART Document Id: [id number] Miscellaneous - Glen Graf L.P.N. - 12/13/2014 9:50 AM CDT PHQ-9 PHQ-9 Entered On: 12/13/2014 9:51 CDT Performed On: 12/13/2014 9:50 CDT by GLEN GRAF LPN PHQ-9 Little interest or pleasure in doing things : Several days Feeling down, depressed, or hopeless : More than half the days Trouble falling or staying asleep, or [...] with others : Not difficult at all GLEN GRAF LPN - 12/13/2014 9:50 CDT Source: [employer] Document Id: [id number] CDT!13 Miscellaneous - Glen Graf L.P.N. 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 Front Desk Officer Intake/History Adult Front Desk Officer Intake/History Entered On: 12/13/2014 9:50 CDT Performed On: 12/13/2014 9:48 CDT by GLEN GRAF LPN Intake Chief Complaint : follow up headaches tooth pain Temperature Core : 36.2 DegC(Converted to: 97.2 DegF) (LOW) Peripheral Pulse Rate : 72 /min Systolic Blood Pressure : 144 mmHg (HI) Diastolic Blood Pressure : 102 mmHg (>HHI) NIBP Mean : 116 mmHg Height : 158 cm(Converted to: 5 ft 2 inch(es), 62 inch(es)) Actual Weight : 144.6 kg(Converted to: 318 lb 13 oz) Dosing Weight Clinic : 144.6 kg Clinic BSA : 2.52 Body Mass Index : 57.92 kg/m2 TY GRAFShari REID 12/13/2014 9:48 CDT General Info Information Given By : Patient Languages : Vincentian Is Patient Female and 13-50 no hysterectomy : Yes Status : Patient denies Are you ? : No LESIA GLEN JEANETTE 12/13/2014 9:48 CDT Subjective Pain Symptoms : Yes GLEN GRAF LPN 12/13/2014 9:48 CDT Pain Scale Pain Scale Verbal 0-10 : Open LESIA GLEN REID 12/13/2014 9:48 CDT Pain Pain Assessment Grid Pain 1 Location : Tooth Laterality : Right Intensity : 10 LESIA GLEN REID 12/13/2014 9:48 CDT Dependent Habits Tobacco Use/Currently Using : Yes Exposure to Tobacco Smoke : Patient smokes Smoking Status : Current every day smoker GLEN GRAF LPN 12/13/2014 9:48 CDT Tobacco Use Grid Type : Cigarettes Cigarette Use Packs/Day : 0.5 Last Use : 04/30/2014 GLEN GRAF LPN 12/13/2014 9:48 CDT Alcohol Use : Yes GLEN GRAF LPN 12/13/2014 9:48 CDT Caffeine Use Grid Caffeine Use : Current Type : Coffee, Soft drinks Frequency : Daily GLEN GRAF LPN 12/13/2014 9:48 CDT Recreational Drug Use Grid Drug Use : None GLEN GRAF LPN 12/13/2014 9:48 CDT ID Screen Travel Within Last 21 Days : No Contact with someone with Ebola : No GLEN GRAF LPN 12/13/2014 9:48 CDT Source: [employer] Document Id: [id number] CDT!50 documented in this encounter Plan of Treatment Scheduled Procedures Name Priority Associated Diagnoses Date/Time COLONOSCOPY Diarrhea documented as of this encounter Visit Diagnoses Not on filedocumented in this encounter Additional Health Concerns Assessment Noted Time PHQ-9 Depression Total Score: 11 12/13/2014 9:50 AM CD T documented as of this encounter
--- OUTSIDE RECORDS SUMMARY | 2022-06-29 09:33 | XMS_ITS | Encounter Summary ---
:1985 Author Organization [facility] Address [address] [place] [address] Care Team Providers Name Role Phone Unavailable Primary Care Provider Unavailable Encounter Details Date Type Department Care Team Description 03/02/2015 Hospital Encounter HX [facility] Berny Llamas M.D. [address] [place], [place] [phone] (Wo rk) Social History [...] How often do you attend [employer] or [employer] More than 4 time s [...] Sign Reading Time Taken Comments Blood Pressure 166/104 03/02/2015 10:25 PM CDT Pulse 88 03/02/2015 10:25 PM CDT Temperature - - Respiratory Rate 16 03/02/2015 10:17 PM CDT Oxygen Saturation - - Inhaled Oxygen Concentration - - Weight - - Height 157.5 cm (5' 2) 03/02/2015 10:25 PM CDT Body Mass Index - - documented in this encounter Discharge Summaries Kavitha Saha R.N. - 03/02/2015 10:41 PM CDT ED Discharge Instructions [address] [place] [address] Name: PUNEET FRIED Date of : 1985 12:00 AM Visit Date: 03/02/2015 10:12 PM [facility] Number: [id number] Address: [address] [place] [phone] Primary Care Provider: ALISON MONACO PA-C IMPORTANT: [facility] in [place] would like to thank you for allowing us to assist you with your healthcare needs. The following includes patient education materials and information regarding your injury/illness. Diagnosis: Strep Throat Pharyngitis Follow-Up Instructions: With: Address: When: ALISON MONACO [address] [place] [phone] Business (1) In 2 days 03/04/2015 Comments: For recheck if not resolving Your Upcoming Appointments: Date Time Location Provider No Appointments found Patient Education Materials: Strep Throat Most sore throats are caused by viruses. These are often mild and go away in a few days. But strep throat is more serious. It's a throat infection caused by bacteria. Strep throat mainly affects children between 6 and 12 years of age, but can affect adults too. When it isn't treated, it can lead to serious problems including rheumatic fever (an inflammation of the joints and heart) and kidney damage. When to Go to the Emergency Room (ER) Call 911 for trouble breathing or swallowing. Call the doctor about other symptoms of strep throat, such as: ?? Throat pain, especially when swallowing ?? Red, swollen tonsils ?? Swollen lymph glands ?? In an under 3 months old, a rectal temperature of 100.4?F (38.0?C) or higher ?? In a child 3 to 36 months, a rectal temperature of 102?F (39?C) or higher ?? In a child of any age who has a temperature of 103?F (39.4?C) or higher ?? A fever that lasts more than 24-hours in a child under 2 years old or for 3 days in a child 2 years old ?? Your child has a seizure caused by fever ?? Stomachache; sometimes, vomiting in younger children ?? Pus in the back of the throat What to Expect in the ER ?? An examination will be done and questions asked about the patient's medical history. ?? The patient's tonsils will be examined. A sample of fluid may be taken from the back of the throat using a soft swab. The sample can be checked right away for the bacteria that cause strep throat. Another sample may also be sent to a lab for testing. ?? An antibiotic may be prescribed to kill the bacteria. The patient must take all the medication, even if he or she starts to feel better. (Note that antibiotics will not help a viral throat infection.) ?? If swallowing is very painful, painkilling medication may also be prescribed. Easing Strep Throat Symptoms These tips can help make a person with strep throat more comfortable: Try soft, owgf-gm-gnwdwzd foods, such as soup, applesauce, and yogurt. Use a cool-mist humidifier in the bedroom. Gargle with saltwater (for older children and adults only). Mix 1 tsp salt in 8 oz of warm water. When to Call Your Doctor Call your doctor if your otherwise healthy child has finished the treatment for strep throat and has: ?? A fever ?? In an infant under 3 months old, a rectal temperature of 100.4?F (38.0?C) or higher ?? In a child 3 to 36 months, a rectal temperature of 102?F (39?C) or higher ?? In a child of any age who has a temperature of 103?F (39.4?C) or higher ?? A fever that lasts more than 24-hours in a child under 2 years or for 3 days in a child 2 years or older ?? Your child has a seizure caused by fever ?? Joint pain or swelling ?? Shortness of breath ?? Rash ?? [id number] Cecil Paez, [address] [place] [address], [place] [address]. All rights reserved. This information is not [...] if you dont have one. Go to [email or web address] and click on Create Your Account. Then, follow the directions to complete the online form. Youll be asked for your [facility] number which you can find at the top of this document. ED Tests and Procedures: Order Status Discharge Prescriptions & Home Medications: Medication/Strength Dose Route Frequency Indications/Special Instructions/Comments/Notes azithromycin (Zithromax 250 mg oral tablet) 2 tablets on day 1, then 1 tablet on days 2-5 Oral as directed for 5 Days HYDROcodone-acetaminophen (HYDROcodone-acetaminophen 5 mg-325 mg oral tablet) 1 to 2 tablets Oral every 6 hours as needed for Pain pyxis azithromycin (Zithromax 250 mg oral tablet) 2 tablets on day 1, then 1 tablet on days 2-5 Oral as directed for 5 Days predniSONE (predniSONE 20 mg oral tablet) 40 mg Oral once a day for 5 Days EPINEPHrine (EpiPen Auto-Injector 0.3 mg injectable kit) 0.3 mg Intramuscular as directed as needed for Other - per order comments Bee Sting venlafaxine (venlafaxine 37.5 mg oral capsule, extended release) 37.5 mg Oral once a day 1 tab dailyx 1 [...] oral tablet) See Instructions 3-4 tabs prn Comment: Attention: If you have any medications [...] arrange a ride home with a responsible constitution party. FARIHA Cornejo AMANDA KAY , or responsible constitution party have received this information and my questions have been answered. I have discussed any challenges I see with this plan with the nurse or physician. Patient Signature or Responsible Democrat/Relationship Date Time Provider Signature Date Time IMPORTANT: [...] arrange a ride home with a responsible constitution party. I, PUENET FRIED , or responsible constitution party have received this information and my questions have been answered. I have discussed any challenges I see with this plan with the nurse or physician. Patient Signature or Responsible Democrat/Relationship Date Time Provider Signature Date Time This document has images extracted. Please consider using [employer] for all your patient education needs. Source: [facility] POWER[facility]ART Document Id: [id number] Kavitha Saha R.N. - 03/02/2015 10:41 PM CDT ED Depart Summary [facility] Emergency Department Clinical Discharge Summary PERSON INFORMATION Name PUNEET FRIED Age 29 Years 1985 12:00 AM Sex Female Language Russian PCP ALISON MONACO PA-C Marital Status Single Visit Id Visit Reason Facial swelling; UC - Sore Throat; sore throat, facial swelling Specialty Enc Type Emergency Med Service Emergency Medicine Referred by Track Group [facility] ED Discharge 03/02/2015 10:35 PM Tracking Id [id number] Checkout 03/02/2015 10:35 PM Checkin 03/02/2015 10:12 PM Acuity 3 -Urgent Dispo Type * Discharged to Home or Self Care Arrival 03/02/2015 10:12 PM Reg Status Complete LOS 000 00:23 Address: [address] [place] [phone] Comment: PROVIDER INFORMATION Provider Role Provider Contact Time KAVITHA SAHA TIRE MOLD ENGRAVER Nurse 03/02/15 22:16 BERNY GARCIA MD ED Provider 03/02/15 22:17 DIAGNOSIS Strep Throat Pharyngitis Comment: PATIENT EDUCATION INFORMATION Instructions: Strep Throat Follow up: With: Address: When: ALISON MONACO [address] [place] [address] [phone] Business (9) In 2 days 03/04/2015 Comments: For recheck if not resolving Source: [employer] Document Id: [id number] documented in this encounter ED Notes Kavitha Saha R.N. - 03/02/2015 10:35 PM CDT ED Disposition Summary ED Disposition Summary Entered On: 03/02/2015 22:40 CDT Performed On: 03/02/2015 22:35 CDT by KAVITHA SAHA RN ED Disposition Summary Accompanied By : Alone Mode of Discharge : Ambulatory Transportation : Private vehicle Discharge From ED With : Home Med List Printed Discharge Instructions Given to Patient : Yes Patient Status at Discharge from ED : Unchanged Comment : RX Zithromax KAVITHA SAHA RN - 03/02/2015 22:40 CDT Source: [employer] Document Id: [id number] CDT!9 Berny Garcia M.D. - 03/02/2015 10:18 PM CDT Throat Pain *ED Patient: PUNEET FRIED Age: 29 years Sex: Female : 1985 Author: BERNY GARCIA MD Attachments: None Associated Diagnosis: Strep Throat Pharyngitis Basic Information Time seen: Date & time 03/02/2015 22:17:00. History source: Patient. Arrival mode: Private vehicle. History limitation: None. History of Present Illness The patient presents with sore throat and with a positive rapid strep in [place] 2 days ago. She is on Keflex for this, as well as Prednisone for the swelling, and doesn't feel things are improving. She has a sensation of something being stuck in her left tonsil, and it's been that way since her d iagnosis, and hasn't improved with the above. No further fever, but the pain has kept her awake the last 3-4 nights. Can still swallow without difficulty, and has no meningismus or obvious nodes in herneck. No cough. Was allergic to penicillin as a child. She is only on keflex 500 twice daily. Discussed trying a different antibiotic. Review of Systems Constitutional symptoms: Negative except as documented in HPI. Skin symptoms: Negative except as documented in HPI. Eye symptoms: Negative except as documented in HPI. ENMT symptoms: Negative except as documented in HPI. Respiratory symptoms: Negative except as documented in HPI. Cardiovascular symptoms: Negative except as documented in HPI. Gastrointestinal symptoms: Negative except as documented in HPI. Genitourinary symptoms: Negative except as documented in HPI. Musculoskeletal symptoms: Negative except as documented in HPI. Neurologic symptoms: Negative except as documented in HPI. Psychiatric symptoms: Negative except as documented in HPI. Endocrine symptoms: Negative except as documented in HPI. Hematologic/Lymphatic symptoms: Negative except as documented in HPI. Allergy/immunologic symptoms: Negative except as documented in HPI. Additional review of systems information: All other systems reviewed and otherwise negative. Health Status Allergies: Allergic Reactions (Selected) Severity Not Documented Penicillins- No reactions were documented.. Medications: (Selected) Prescriptions Prescribed EpiPen Auto-Injector 0.3 mg injectable kit: 0.3 mg, IM, As Directed, PRN: Other - per order comments, 1 each, 3 Refill(s) Keflex 500 mg oral capsule: 500 mg, 1 cap(s), PO, 2xDay, for 10 day(s), 20 cap(s), 0 Refill(s) SUMAtriptan 50 mg oral tablet: 50 mg, 1 tab(s), PO, As Directed, Take 1 tablet at onset of headache.Repeat after two hours if needed., 9 tab(s), PRN: Migraine headache Vicodin 5 mg-300 mg oral tablet: 1 tab(s), PO, q6hr, 12 tab(s), PRN: Pain predniSONE 20 mg oral tablet: 40 mg, 2 tab(s), PO, Daily, for 5 day(s), 10 tab(s), 0 Refill(s) venlafaxine 37.5 mg oral capsule, extended release: 37.5 mg, 1 cap(s), PO, Daily, 1 tab daily x 1 week. Increase to 2 tabs daily as tolerated., 60 cap(s) venlafaxine 37.5 mg oral tablet, extended release: 37.5 mg, 1 tab(s), PO, Daily, 1 tab daily x 1 week. Then increase to 2 tabs daily as tolerated., 60 tab(s) Documented Medications Documented ibuprofen 200 mg oral tablet: See Instructions, 3-4 tabs prn. Past Medical/ Family/ Social History Medical history: Active Headache Migraine (346.90): Onset on 01/21/2012 at 26 years. Dysthymic Disorder (300.4): Onset on 08/01/2010 at 24 years. Comments: - Dysthymic disorder Headache (784.0): Onset on 10/24/2007 at 21 years. Comments: - Headache Abuse Tobacco Smoking NOS (305.1) Resolved ([id number]): Resolved on 01/03/2008 at 22 years.. Surgical history: Pap smear ([id number]) on 01/25/2013 at 27 Years. Pap smear ([id number]) on 01/25/2013 at 27 Years.. Family history: Cancer Grandmother (maternal) Comments: 03/13/2014 13:47 - JORY COPPOLA LPN ear Grandfather (maternal) Comments: 03/13/2014 13:JORY SHERMAN LPN larynx Cystic fibrosis Sister [place] - Lung cancer Grandmother (paternal, ) Comments: 03/13/2014 13:47 JORY ALMAZAN LPN brain cancer Hypothyroidism Mother Myocardial infarction Father: onset at 47 . . Social history: Alcohol use: Occasionally, Tobacco use: Regularly, Drug use: Denies. Problem list: All Problems Dysthymic Disorder / 300.4 / Confirmed Dysthymic disorder Abuse Tobacco Smoking NOS / 305.1 / Confirmed Headache Migraine / 346.90 / Confirmed Headache / 784.0 / Confirmed Headache / V22.2 / Confirmed Resolved: / [id number]. Physical Examination Vital Signs: Vital Signs 03/02/2015 22:17 CDT Temperature Core 36.4 DegC LOW Peripheral Pulse Rate 105 /min HI Respiratory Rate 16 /min Systolic Blood Pressure 162 mmHg >HHI Diastolic Blood Pressure 102 mmHg >HHI Mean Arterial Pressure 122 mmHg . General: Alert and no acute distress. Skin: Warm, dry and intact. Head: Normocephalic and atraumatic. Neck: Supple, trachea midline and no tenderness. Eye: Pupils are equal, round and reactive to light, extraocular movements are intact and normal conjunctiva. Ears, nose, mouth and throat: Tympanic membranes clear, oral mucosa moist and erythematous tonsils, left enlarged more than the right, but no obvious abscess, and doesn't touch the uvula.. Respiratory: Lungs are clear to auscultation, respirations are non-labored and breath sounds are equal. Cardiovascular: Regular rate and rhythm and No murmur. Musculoskeletal: Normal ROM. normal strength. Neurological: Alert and oriented to person, place, time, and situation, No focal neurological deficit observed, CN II-XII intact, normal sensory observed, normal motor observed and normal speech observed. Lymphatics: No lymphadenopathy. Psychiatric: Cooperative, appropriate mood & affect and normal judgment. Impression and Plan Diagnosis Strep Throat Pharyngitis (Discharge, Emergency medicine, Medical) Plan Condition: Stable. Disposition: Discharged: to home. Prescriptions: Prescription [facility]: Zithromax (Order Processing): 500 mg, PO, Once, Prescription [facility]: Zithromax 250 mg oral tablet (Prescribe): 2 tablets on day 1, then 1 tablet on days 2-5, PO, As Directed, for 5 day(s), 6 tab(s), 0 Refill(s). Patient was given the following educational materials: Strep Throat. Follow up with: ALISON MONACO In 2 days 03/04/2015 For recheck if not resolving. Orders: Launch Orders Patient Care: Discharge ED Patient (Order Processing): 03/02/2015 22:28 CDT, Once. Electronically Signed By: BERNY GARCIA MD On: 03/02/2015 10:28 PM Source: [facility] [employer] Document Id: [id number]} Kavitha Saha RBrittaneyN. - 03/02/2015 10:17 PM CDT ED Primary Assessment Document Has Been Updated ED Primary Assessment Entered On: 03/02/2015 22:22 CDT Performed On: 03/02/2015 22:17 CDT by KAVITHA SAHA RN Reason For Visit (As Of: 03/02/2015 22:22:50 CDT) Problems(Active) Abuse Tobacco Smoking NOS (ICD-9-CM :305.1 ) Name of Problem: Abuse Tobacco Smoking NOS ; Recorder: NICHOLE ADDISON; Confirmation: Confirmed ; Classification: Medical ; Code: 305.1 ; Contributor System: [employer] ; Last Updated: 12/12/2014 9:21 CDT ; Life Cycle Date: 12/12/2014 ; Life Cycle Status: Active ; Responsible Provider: NICHOLE ADDISON; Vocabulary: ICD-9-CM Dysthymic Disorder (ICD-9-CM :300.4 [...] Medical ; Code: 784.0 ; Contributor System: [employer] ; Last Updated: 12/12/2014 9:11 CDT ; Life Cycle Status: Active ; Vocabulary: ICD-9-CM ; Comments: - Headache Headache Migraine (ICD-9-CM :346.90 ) Name of Problem: Headache Migraine ; Onset Date: 01/21/2012 ; Recorder: RABIA NATHAN MD; Confirmation: Confirmed ; Classification: Medical ; Code: 346.90 ; Contributor System: [employer] ; Last Updated: 12/12/2014 9:11 CDT ; [...] Responsible Provider: GLEN ACOSTA; Vocabulary: ICD-9-CM Diagnoses(Active) Facial swelling Date: 03/02/2015 ; Diagnosis Type: Reason For Visit ; Confirmation: Complaint of ; Clinical Dx: Facial swelling ; Classification: Medical ; Clinical Service: Emergency medicine ; Code: PNED ; Probability: 0 ; Diagnosis Code: [id number] UC - Sore Throat Date: 03/02/2015 ; Diagnosis Type: Reason For Visit ; Confirmation: Complaint of ; Clinical Dx: UC - Sore Throat ; Classification: Medical ; Clinical Service: Emergency medicine ; Code: PNED ; Probability: 0 ; Diagnosis Code: [id number] Triage Chief Complaint Description : diagnosed with strep on Tues, on Keflex and Prednisone. today left side of face swollen in am, feels like something lodged in throat, hurts to turn head to left Information Given By : Patient Accompanied By : Alone Mode of Arrival ED : Private vehicle, Ambulatory Track : Medical Languages : Russian Patient Informed of Triage Location : Emergency department Vital Signs Assessed : Yes Treatments Prior to Arrival : Home treatments Are you ? : No Is Patient Female and 13-50 no hysterectomy : Yes Status : Patient denies KAVITHA SAHA RN - 03/02/2015 22:17 CDT Vital Signs Temperature Core : 36.4 DegC(Converted to: 97.5 DegF) (LOW) Peripheral Pulse Rate : 105 /min (HI) Respiratory Rate : 16 /min Systolic Blood Pressure : 162 mmHg (>HHI) Diastolic Blood Pressure : 102 mmHg (>HHI) NIBP Mean : 122 mmHg Height : 157.48 cm(Converted to: 5 ft 2 inch(es)) Estimated Weight : 139.0 kg Estimated Weight Conversion to Pounds : 305.8 lb KAVITHA SAHA SHRUTHI - 03/02/2015 22:17 CDT Pain Assessment Pain Symptoms : Yes KAVITHA SAHA SHRUTHI - 03/02/2015 22:17 CDT Pain Scale Pain Scale Verbal 0-10 : Open KAVITHA SAHA SHRUTHI - 03/02/2015 22:17 CDT Pain Pain Assessment Grid Pain 1 Location : Throat Intensity : 7 KAVITHA SAHA SHRUTHI 03/02/2015 22:17 CDT JAYDEN DCP GENERIC CODE Tracking Acuity : 3 -Urgent Tracking Group : [facility] ED KAVITHA SAHA SHRUTHI 03/02/2015 22:17 CDT Respiratory Airway : Patent Respirations : Unlabored Respiratory Pattern : Regular Oxygen Therapy : Room air Respiratory Detailed Assessment : Yes KAVITHA SAHA SHRUTHI 03/02/2015 22:17 CDT Resp Detailed Respiratory Patient Stated Symptoms : None KAVITHA SAHA SHRUTHI 03/02/2015 22:17 CDT Cardiovascular Heart Rhythm : Regular Skin Color : Normal for ethnicity Skin Description : Dry Skin Temperature : Warm KAVITHA SAHA SHRUTHI 03/02/2015 22:17 CDT Neurological Last Well Time Known : Not applicable Level of Consciousness : Alert Orientation : Oriented x 3 Characteristics of Speech : Appropriate for age Neuro Patient Stated Symptoms : None Gait : Steady KAVITHA SAHA SHRUTHI - 03/02/2015 22:17 CDT ED Psychosocial Affect/Behavior : Calm Domestic Abuse Concerns : None Behavioral Health Screen/Safety Assmt : No KAVITHA SAHA SHRUTHI - 03/02/2015 22:17 CDT Gastrointestinal Nutrition ED : Adequate GI Detailed Assessment : Yes KAVITHA SAHA SHRUTHI - 03/02/2015 22:17 CDT GI Detailed GI Patient Stated Symptoms : None KAVITHA SAHA SHRUTHI - 03/02/2015 22:17 CDT Musculoskeletal Fall Prevention Education Provided : NA Activity Kristopher : Walks frequently Ambulatory Devices : None KASIE SAHAZACHARIAH HAWKINS 03/02/2015 22:17 CDT Social Habits Tobacco Use/Currently Using : Yes Exposure to Tobacco Smoke : Patient smokes Smoking Status : Current every day smoker KAVITHA SAHA RN - 03/02/2015 22:17 CDT Tobacco Use Grid Type : Cigarettes Cigarette Use Packs/Day : 0.5 KAVITHA SAHA RN - 03/02/2015 22:17 CDT Alcohol Use Grid Alcohol Use : Yes KAVITHA SAHA RN - 03/02/2015 22:17 CDT Recreational Drug Use Grid Drug Use : None KAVITHA SAHA RN - 03/02/2015 22:17 CDT Source: [employer] Document Id: [id number] CDT!84 documented in this encounter Miscellaneous Notes Miscellaneous - Conversion, Historical Provider Ser - 03/02/2015 10:35 PM CDT Coding Summary-Paper Based CODING DATE: 03/14/2015 FINAL [facility] STATUS: * Discharged to Home or Self Care PAYOR: [facility] ADMIT DX: 462 Acute Pharyngitis REASON FOR VISIT DX: 462 Acute Pharyngitis 784.99 Other Symptoms Involving Head and Neck FINAL DX: PRINCIPAL: 034.0 Streptococcal Sore Throat SECONDARY: V58.65 Long-Term (Current) Use of Steroids V58.62 Long-Term (Current) Use of Antibiotics 305.1 Tobacco Use Disorder V16.1 Family History of Malignant Neoplasm of Trachea, Bronchus, and Lung V18.19 Family History of Other Endocrine and Metabolic Diseases V17.3 Family History of Ischemic Heart Disease PROCEDURES DOCTOR NAME DATE NOTE: The code number assigned matches the documented diagnosis and / or procedure in the patient's chart. However, the narrative phrase printed from the coding software may appear abbreviated, or result in slightly different terminology. Coded By: SLIM SORTO Date Saved: 03/14/2015 02:40 pm Source: [employer] Document Id: [id number] Miscellaneous - Kavitha Saha R.N. - 03/02/2015 10:35 PM CDT Valuables/Belongings Valuables/Belongings Entered On: 03/02/2015 22:40 CDT Performed On: 03/02/2015 22:35 CDT by KAVITHA SAHA RN Valuables/Belongings Valuables/Belongings Grid Valuables with Patient Clothes, Patient Valuables : Pants, Shirt, Shoes Electronic Devices : Cell phone Monetary Items : Purse KAVITHA SAHA RN - 03/02/2015 22:40 CDT Home Medication Disposition : None brought in with patient KAVITHA SAHA RN - 03/02/2015 22:40 CDT Source: [employer] Document Id: [id number] CDT!8 Miscellaneous - Kavitha Saha R.N. - 03/02/2015 10:12 PM CDT Facility Charge Ticket 2.0 11.0 DX Facility Charge Ticket 2.0 11.0 DX Entered On: 03/02/2015 22:41 CDT Performed On: 03/02/2015 22:12 CDT by KAVITHA SAHA RN Facility Charge Ticket 2.0 11.0 DX ED Other Charges : Standard ED Encounter TVL Level Translated RTF : UC - Sore Throat, Facial swelling TVL:3 TVL Level for Facility Charge Ticket : Level 3 Arrival Mode Calc : 1 Mode of Arrival ED : Private vehicle, Ambulatory [place] Mode of Arrival Interpreted : Standard [place] Process Management : None [place] Order Management : None 30 Minutes Critical Care : No Nursing Notes RTF : Nursing Notes ED Primary Assessment,03/02/15 22:17,KAVITHA SAHA RN [place] Nursing Assessment : Triage and 1-2 nursing assessments [place] Disposition : Discharge Disposition RTF : discharge [place] Total Points with Diagnosis Control : 5 [place] Visit Level : 01583 Level 2 Treatments Prior to Arrival : Home treatments KAVITHA SAHA RN - 03/02/2015 22:40 CDT Source: [employer] Document Id: [id number] CDT!18 documented in this encounter Plan of Treatment Scheduled Procedures Name Priority Associated Diagnoses Date/Time COLONOSCOPY Diarrhea documented as of this encounter Visit Diagnoses Not on filedocumented in this encounter Additional Health Concerns Assessment Noted Time PHQ-9 Depression Total Score: 11 12/13/2014 9:50 AM CD T documented as of this encounter
--- OUTSIDE RECORDS SUMMARY | 2022-06-29 09:33 | XMS_ITS | Encounter Summary ---
:1985 Author Organization [facility] Address [address] [place] [address] Care Team Providers Name Role Phone Unavailable Primary Care Provider Unavailable Encounter Details Date Type Department Care Team Description 11/01/2014 Hospital Encounter [facility] Maureen Berman P.A.-C., M.S. [address] [place] [address] [phone] (Wo rk) Social History Tobacco Use Types [...] How often do you attend confucianist or bahai More than 4 time s per year [...] Sign Reading Time Taken Comments Blood Pressure 122/80 11/01/2014 9:12 AM CDT Pulse 68 11/01/2014 9:12 AM CDT Temperature - - Respiratory Rate - - Oxygen Saturation - - Inhaled Oxygen Concentration - - Weight 144 kg (317 lb 7.4 oz) 11/01/2014 9:12 AM CDT Height 158 cm (5' 2.21) 11/01/2014 9:12 AM CDT Body Mass Index 57.68 11/01/2014 9:12 AM CDT documented in this encounter Progress Notes Rosalind Berman P.A.-C., M.S. - 11/01/2014 9:05 AM CDT [id number] CHIEF COMPLAINT/REASON FOR VISIT Headache management. HISTORY OF PRESENT ILLNESS Puneet is a 28-year-old female with a history of migraines here for further discussion of headache management. She has been struggling with headaches for several years now. However they are worsening over the past several months, now occurring daily. She wakes up with them. Sometimes bilateral frontal, other times basically just one side of the face. Describes as throbbing. Intermittently associated with nausea and photophobia. She has been using Tylenol and ibuprofen on a daily basis without significant relief of headaches. Additional muscle tension noted in the neck and back. Past medications tried include atenolol without significant relief of symptoms. MEDICATIONS Per Cerner. ALLERGIES Per Cerner. SYSTEMS REVIEW Negative except as per HPI. VITAL SIGNS Temperature 36.1, blood pressure 122/80, heart rate 68. PHYSICAL EXAMINATION GENERAL: Patient is a 28-year-old female, alert, in no acute distress. HEENT: Head, skull NC, AT. Eyes: Sclerae white. Conjunctivae pink without discharge. Ears: Canals clear. Tympanic membranes normal. Nose: Mucosa without edema, erythema or discharge. Nontender to palpation over sinuses. Throat: No oral lesions. Uvula: Midline. Palate rises symmetrically. Pharynx without erythema or exudate. NECK: Lymph nodes nonpalpable. Thyroid not enlarged. RESPIRATORY: Normal breath sounds throughout. CARDIOVASCULAR: Regular rate and rhythm. No extra sounds or murmur. NEUROLOGIC: Cranial nerves, deep tendon reflexes, cerebellar all normal. IMPRESSION/REPORT/PLAN Headache, not otherwise specified. Discussed possible rebound headaches/medication overuse headaches. She will stop all anti-inflammatories for 1 week; however, given history significant for migraines and current features plan to start amitriptyline 10 mg at bedtime for prophylaxis. Trial Imitrex as needed. Schedule further evaluation with Physical Therapy. Recheck Family Practice 1 month. Consider consult to Neurology as needed. Rosalind Monaco P.A.-C./robb Electronically Signed By: ROSALIND MONACO PA-C On: 11/05/2014 01:01 PM Source: [facility] MHSDOLBEYNONRADSYS Document Id: [id number] documented in this encounter Miscellaneous Notes Miscellaneous - Rosalind Berman P.A.-C., M.S. - 11/01/2014 10:51 AM CDT Normal Results Letter 01 November 2014 PUNEET FRIED [address] [place] [id number] Dear PUNEET FRIED, I am pleased to report that your results from the following diagnostic test(s) are normal: complete blood count and thyroid stimulating hormone. Please follow up with us as we discussed during your visit or sooner if you have any concerns. If you have questions, please do not hesitate to call our office. Result Name Current Result Normal Range TSH (mIU/L) 1.26 11/01/2014 0.27 - 4.20 Hgb (g/dL) 13.5 11/01/2014 12.0 - 15.5 Hct (%) 42.2 11/01/2014 34.9 - 44.5 WBC (x10(9)/L) 8.1 11/01/2014 3.5 - 10.5 RBC (x10(12)/L) 4.74 11/01/2014 3.90 - 5.03 MCV (fL) 89.0 11/01/2014 82.0 - 98.0 RDW (%) 13.2 11/01/2014 11.9 - 15.5 Platelet (x10(9)/L) 304 11/01/2014 150 - 450 Sincerely, ROSALIND MONACO [address] [place] [address] Electronic Signature Electronically Signed By: ROSALIND MONACO PA-C On: 01 November 2014 This document has images extracted. 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 Entered On: 11/01/2014 9:14 CDT Performed On: 11/01/2014 9:12 CDT by FRANCIEИРИНАBARBARA Nena [facility] Intake Chief Complaint : headache management LMP Date : 10-25-14 Temperature Core : 36.1 DegC(Converted to: 97.0 DegF) (LOW) Peripheral Pulse Rate : 68 /min Systolic Blood Pressure : 122 mmHg Diastolic Blood Pressure : 80 mmHg NIBP Mean : 94 mmHg Height : 158 cm(Converted to: 5 ft 2 inch(es), 62 inch(es)) Actual Weight : 144 kg(Converted to: 317 lb 7 oz) Dosing Weight Clinic : 144 kg Clinic BSA : 2.51 Body Mass Index : 57.68 kg/m2 BARBARA VALLES [facility] - 11/01/2014 9:12 CDT General Info Information Given By : Patient Languages : Cymraes Is Patient Female and 13-50 no hysterectomy : Yes Status : Patient denies Are you ? : No BARBARA VALLES Nena [facility] - 11/01/2014 9:12 CDT Subjective Pain Symptoms : Yes FRANCIEИРИНАBARBARA Nena [facility] - 11/01/2014 9:12 CDT Pain Scale Pain Scale Verbal 0-10 : Open BARBARA VALLES Nena [facility] - 11/01/2014 9:12 CDT Pain Pain Assessment Grid Pain 1 Location : Head Intensity : 8 BARBARA VALLES Nena [facility] - 11/01/2014 9:12 CDT Dependent Habits Tobacco Use/Currently Using : Yes Tobacco Use/Advised to Quit : Yes Exposure to Tobacco Smoke : Patient smokes Smoking Status : Current every day smoker BARBARA VALLES Nena [facility] - 11/01/2014 9:12 CDT Tobacco Use Grid Type : Cigarettes Cigarette Use Packs/Day : 0.5 Last Use : 04/30/2014 FRANCIEBARBARA GIFFORD [facility] - 11/01/2014 9:12 CDT Caffeine Use Grid Caffeine Use : Current Type : Coffee, Soft drinks Frequency : Daily BARBARA VALLES [facility] - 11/01/2014 9:12 CDT Recreational Drug Use Grid Drug Use : None BARBARA VALLES [facility] - 11/01/2014 9:12 CDT ID Screen Travel Within Last 21 Days : No Contact with someone with Ebola : No BARBARA VALLES [facility] - 11/01/2014 9:12 CDT Source: [facility] POWERCHART Document Id: [id number] CDT!50 documented in this encounter Plan of Treatment Scheduled Procedures Name Priority Associated Diagnoses Date/Time COLONOSCOPY Diarrhea documented as of this encounter Procedures Procedure Name Priority Date/Time Associated Diagnosis Comme nts CBC WITHOUT Routine 11/01/2014 9:53 AM Results f or this DIFFERENTIAL, B CDT procedure ar e in the results section. THYROID-STIMULATING Routine 11/01/2014 9:53 AM Re sults for this HORMONE-SENSITIVE CDT procedure are in (S-TSH) the results section. documented in this encounter Results CBC without Differential (11/01/2014 9:53 AM CDT) P athologist Signature Hematocrit 42.2 34.9 - 44.5 POWERCHART Hemoglobin 13.5 12.0 - 15.5 POWERCHART GDL MCV 89.0 82.0 - 98.0 POWERCHART FL Platelet Count 304 150 - 450 POWERCHART X109L Erythrocytes 4.74 3.90 - 5.03 POWERCHART [id number] HX RDW 13.2 11.9 - 15.5 POWERCHART Leukocytes 8.1 3.5 - 10.5 POWERCHART X109L Specimen (Source) Anatomical Collection Method Collection Time Re ceived Time Location / / Volume Laterality Blood 11/01/2014 9:53 AM CDT Rosalind Berman P.A.-C., M.S. LAB BLOOD ADD-ON Performing Organization Address City/State/ZIP Code Phon e Number POWERCHART Thyroid-Stimulating Hormone-Sensitive (s-TSH) (11/01/2014 9:53 AM CDT) P athologist Signature TSH 1.26 0.27 - 4.20 POWERCHART (Thyrotropin) MIUL Specimen (Source) Anatomical Collection Method Collection Time Re ceived Time Location / / Volume Laterality Blood 11/01/2014 9:53 AM CDT Rosalind Berman P.A.-C., M.S. LAB BLOOD ADD-ON Performing Organization Address City/State/ZIP Code Phon e Number POWERCHART documented in this encounter Visit Diagnoses Not on filedocumented in this encounter Additional Health Concerns Assessment Noted Time PHQ-9 Depression Total Score: 18 05/02/2014 9:45 AM CD T documented as of this encounter
--- OUTSIDE RECORDS SUMMARY | 2022-06-29 09:33 | XMS_ITS | Encounter Summary ---
:1985 Author Organization [facility] Address [address] [place] [address] Care Team Providers Name Role Phone Unavailable Primary Care Provider Unavailable Encounter Details Date Type Department Care Team Description 05/10/2014 Hospital [facility] Oralia San O.D. Social History Tobacco Use Types Packs/Day Years [...] or relatives? How often do you attend orthodox or scientologist More than 4 time s per year 07/09/2020 services? Do you belong to any clubs or organizations No 04/19/2019 such as orthodox groups, unions, fraternal or athletic groups, [...] - - Height 158 cm (5' 2.21) 05/10/2014 8:55 AM CDT Body Mass Index - - documented in this encounter Progress Notes Rakel Martinez, C.O.A. - 05/10/2014 8:51 AM CDT Contact Lens Check: CONTACTS ARE COMFORTABLE AND VISION IS GOOD. Lenses: (ACUVUE OASYS 8.4/14.0 -3.50 8.4/14.0 -3.00 Wearing for ( 2 HOURS ) VA With Contacts Right Eye 20/( 20 ) Left Eye 20/( 25-2 ) Both Eyes 20/( 20-2 ) OR (plano) 20/( 20 ) Right Eye (plano) 20/( 25 ) Left Eye 20/( 20 ) Both Eyes CL: Right eye ( .5 ) movement and ( good ) centration Left eye ( .5 ) movement and ( good ) centration Cornea: Right eye ( clear ), Left Eye ( clear ) order ACUVUE OASYS 8.4/14.0 -3.50 8.4/14.0 -3.00 IMP: (Well fitting CLS right eye & left eye. Lense will be ordered. PLAN: Wear as ( needed ), daily wear, Re-Check in ( 1 year ) or sooner if you have problems. cl check Electronically Signed By: ORALIA ROACH OD On: 05/10/2014 09:44 AM Modified by and Electronically Signed by: RAKEL MARTINEZ On: 05/10/2014 08:56 AM Co-Signed By: ORALIA ROACH OD On: 05/10/2014 09:44 AM Source: [employer] POWERCHART Document Id: [id number] documented in this encounter Miscellaneous Notes Miscellaneous - Oralia Roach O.D. - 05/10/2014 9:11 AM CDT Ambulatory Patient Summary [facility] [address] [place], [place] [id number] Visit Information Name: PUNEET FRIED [facility] Number: [id number] Current Date: 05/10/2014 09:11:03 Physicians Attending Provider: ORALIA ROACH OD Primary Care Provider: MICHELLE BEAR MD PUNEET [...] Take Indications/Special Instructions/Comments/Notes for Patient Medication Changes/Routing FLUoxetine (FLUoxetine 10 mg oral tablet) 2 Tablet(s), Oral, once a day ibuprofen (ibuprofen 200 mg oral tablet) See Instructions 3-4 tabs prn levonorgestrel (Mirena 52 mg intrauteral device) See Instructions placed 02/06/08 propranolol (Inderal LA 80 mg oral capsule, extended release) 2 cap, Oral, once a day Stop Taking the Following Medications: Medication list as of 05-10-14 09:11 Attention: If you have any medications at home that are not on this list, DO NOT take them until youcontact your provider for clarification. Give a copy of your medication list to your primary care provider. Update your medication list any time medications or doses are changed and carry your medication list at all times in case of emergency. Electronically Signed By: ORALIA ROACH OD Signed On:10-MAY-2014 09:10:54 Your Allergies & Intolerances Substance Reaction Symptoms Category Comments penicillins Drug Your Problem List Problem Status Onset Comments Active 08/23/2007 Headache Migraine Active 01/21/2012 Headache Active 10/24/2007 11/18/13 Headache Dysthymic Disorder Active 08/01/2010 11/18/13 Dysthymic disorder Your Upcoming Appointments Date Time Location Provider No Appointments found Attention: Contact your local Clinic if further appointment detail needed. Your Goals/Additional instructions: Source: [facility] POWERCHART Document Id: [id number] [facility] - Oralia Roach O.D. - 05/10/2014 9:11 AM CDT Ambulatory Discharge Medication List [facility] [address], [address] [place], [place] [id number] Visit Information Name: PUNEET FRIED [facility] Number: [id number] Visit Date: 05/10/2014 09:11:02 Attending Provider: ORALIA ROACH OD Primary Care Provider: MICHELLE BEAR MD PUNEET [...] Take Indications/Special Instructions/Comments/Notes for Patient Medication Changes/Routing FLUoxetine (FLUoxetine 10 mg oral tablet) 2 Tablet(s), Oral, once a day ibuprofen (ibuprofen 200 mg oral tablet) See Instructions 3-4 tabs prn levonorgestrel (Mirena 52 mg intrauteral device) See Instructions placed 02/06/08 propranolol (Inderal LA 80 mg oral capsule, extended release) 2 cap, Oral, once a day Stop Taking the Following Medications: Medication list as of 05-10-14 09:11 Attention: If you have any medications at home that are not on this list, DO NOT take them until youcontact your provider for clarification. Give a copy of your medication list to your primary care provider. Update your medication list any time medications or doses are changed and carry your medication list at all times in case of emergency. 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 : No RAKEL MARTINEZ - 05/10/2014 8:55 CDT Subjective Pain Symptoms : No RAKEL MARTINEZ - 05/10/2014 8:55 CDT Dependent Habits Tobacco Use/Currently Using : Yes Exposure to Tobacco Smoke : Patient smokes Smoking Status : Current every day smoker RAKEL MARTINEZ - 05/10/2014 8:55 CDT Tobacco Use Grid Type : Cigarettes Cigarette Use Packs/Day : 0.5 Last Use : 04/30/2014 RAKEL MARTINEZ - 05/10/2014 8:55 CDT Caffeine Use Grid Caffeine Use : Current Type : Coffee, Soft drinks Frequency : Daily RAKEL MARTINEZ - 05/10/2014 8:55 CDT Recreational Drug Use Grid Drug Use : None RAKEL MARTINEZ - 05/10/2014 8:55 CDT Source: [facility] [employer] Document Id: [id number] CDT!29 documented in this encounter Plan of Treatment Scheduled Procedures Name Priority Associated Diagnoses Date/Time COLONOSCOPY Diarrhea documented as of this encounter Visit Diagnoses Not on filedocumented in this encounter Additional Health Concerns Assessment Noted Time PHQ-9 Depression Total Score: 05/02/2014 9:45 AM CD T documented as of this encounter
--- OUTSIDE RECORDS SUMMARY | 2022-06-29 09:33 | XMS_ITS | Encounter Summary ---
:1985 Author Organization [facility] Address [address] [place] [address] Care Team Providers Name Role Phone Unavailable Primary Care Provider Unavailable Encounter Details Date Type Department Care Team Description 02/27/2015 Hospital Encounter HX [facility] [address] [place] [phone] (Wo rk) Social History Tobacco Use [...] How often do you attend baptist or advent More than 4 time s [...] Sign Reading Time Taken Comments Blood Pressure 128/84 02/27/2015 7:10 AM CDT Pulse 104 02/27/2015 7:10 AM CDT Temperature - - Respiratory Rate 16 02/27/2015 7:10 AM CDT Oxygen Saturation - - Inhaled Oxygen Concentration - - Weight 139 kg (306 lb 14.1 oz) 02/27/2015 7:10 AM CDT Height 157 cm (5' 1.81) 02/27/2015 7:10 AM CDT Body Mass Index 56.47 02/27/2015 7:10 AM CDT documented in this encounter Progress Notes Leonora Farias M.D. - 02/27/2015 8:24 AM CDT Clinic Full Note CHIEF COMPLAINT/REASON FOR VISIT ST HISTORY OF PRESENT ILLNESS Puneet presents today with a significant sore throat which started 2 days ago. It has been getting worse. She had a fever and chills yesterday. It hurts to talk and swallow and she is very fatigued. She also has a mild headache and cough but no runny nose or upset stomach. This feels similar to past strep infections. MEDICATIONS EpiPen Auto-Injector 0.3 mg injectable kit, 0.3 mg, IM, As Directed, PRN, 3 refills ibuprofen 200 mg oral tablet, See Instructions, 3-4 tabs prn SUMAtriptan 50 mg oral tablet, 50 mg, 1 tab(s), Take 1 tablet at onset of headache. Repeat after two hours if needed., PO, As Directed, PRN, 1 refills venlafaxine 37.5 mg oral capsule, extended release, 37.5 mg, 1 cap(s), 1 tab daily x 1 week. Increase to 2 tabs daily as tolerated., PO, Daily, 1 refills venlafaxine 37.5 mg oral tablet, extended release, 37.5 mg, 1 tab(s), 1 tab daily x 1 week. Then increase to 2 tabs daily as tolerated., PO, Daily, 1 refills Vicodin 5 mg-300 mg oral tablet, 1 tab(s), PO, q6hr, PRN, 0 refills ALLERGIES penicillins PAST MEDICAL HISTORY Chronic Abuse Tobacco Smoking NOS Dysthymic Disorder Headache Headache Migraine Historical PROCEDURES/SURGICAL HISTORY Pap smear (01/25/2013), Pap smear (01/25/2013). SOCIAL HISTORY Date Time: 02/27/2015 07:10 Tobacco: Smoking Status: Current every day smoker Exposure: Patient smokes Alcohol: Use: No Recreational Drugs: Use: None Type: No Results Found FAMILY HISTORY Mother:Positive: Hypothyroidism Negative: Blindness AND/OR vision impairment level; Cataract; Diabetic retinopathy; Glaucoma; Macular disease Father:Positive: Myocardial infarction Negative: Blindness AND/OR vision impairment level; Cataract; Diabetic retinopathy; Glaucoma; Macular disease Sister:Positive: Cystic fibrosis Grandmother (paternal, at 65 year(s)):Positive: CA - Lung cancer Grandfather (maternal):Positive: Cancer Grandmother (maternal):Positive: Cancer SYSTEMS REVIEW As per HPI. VITAL SIGNS T: 35.8 ??C (Core) HR: 104 RR: 16 BP: 128 / 84 SpO2: 96% HT: 157 cm WT: 139.2 kg BMI: 56.47 PHYSICAL EXAMINATION General: Patient is alert and oriented in no acute distress. HEENT: Right TM nonerythematous. Left TM nonerythematous. Nasal mucosa is unremarkable. Oral mucosais moist. Oropharynx is erythematous. Tonsils are 3+ with erythema and pus. Neck: Supple. No lymphadenopathy. Heart: Regular rate and rhythm. Normal S1 and S2. No murmurs, rubs, or gallops. Lungs: Clear to auscultation. LAB RESULTS Rapid strep positive. IMPRESSION/REPORT/PLAN 1. Strep Throat Pharyngitis Patient has a penicillin allergy. She thinks it was a rash. We will treat her with Keflex 500mg twice daily for 10 days. 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 Patient was also given a script for prednisone to help with the swelling. Ordered: OV Est Pt Level 3 - 68368 - 15 min Orders: cephalexin, 500 mg = 1 cap(s), PO, 2xDay, x 10 day(s), # 20 cap(s), 0 Refill(s), Acute, Pharmacy: [facility] predniSONE, 40 mg = 2 tab(s), PO, Daily, x 5 day(s), # 10 tab(s), 0 Refill(s), Acute, Pharmacy: [facility] Electronically Signed By: LEONORA NATHAN MD On: 02/27/2015 08:25 AM Source: [facility] POWERCHART Document Id: [id number] documented in this encounter Miscellaneous Notes Miscellaneous - Roosevelt Rodriges L.PBrittaneyNBrittaney - 02/27/2015 1:00 PM CDT Quality Measures Quality Measures Entered On: 03/07/2015 13:00 CDT Performed On: 02/27/2015 13:00 CDT by ROOSEVELT RODRIGES LPN Depression PHQ-9 Score : 0 ROOSEVELT RODRIGES LPN - 03/07/2015 13:00 CDT [facility] [employer] Document Id: [id number] CDT!3 Miscellaneous - Leonora Farias M.D. - 02/27/2015 7:39 AM CDT Work Excuse 27 February 2015 PUNEET FRIED [address] [place] [phone] Dear PUNEET FRIED, You were examined in my office on: 02/27/2015 Reason for work excuse: Medical Illness ( [...] ( _ ) Return to Work date: 02/28/2015 Notes: _ Sincerely, LEONORA NATHAN [id number] [phone] Electronic Signature Electronically Signed By: LEONORA NATHAN MD On: 27 February 2015 This document has images extracted. Source: [facility] Document Id: [id number] Miscellaneous - Leonora Farias M.D. - 02/27/2015 7:38 AM CDT Ambulatory Patient Summary [address] [facility] NEHEMIAH Hawk [id number] Visit Information Name: PUENET FRIED [facility] Number: [id number] Current Date: 02/27/2015 07:38:28 Physicians Attending Provider: LEONORA NATHAN MD Primary Care Provider: ALISON MONACO PA-C [...] Take Indications/Special Instructions/Comments/Notes for Patient Medication Changes/Routing cephalexin (Keflex 500 mg oral capsule) 1 cap, Oral, two times a day x 10 day(s) New Routed to [facility] [address] [place] [address] EPINEPHrine (EpiPen Auto-Injector 0.3 mg injectable kit) 0.3 mg, Intramuscular, as directed as needed for Other - per order comments [facility] HYDROcodone-acetaminophen (Vicodin 5 mg-300 mg oral tablet) 1 Tablet(s), Oral, every 6 hours as needed for Pain No more than 4,000mg acetaminophen/24hrs ibuprofen (ibuprofen 200 mg oral tablet) See Instructions 3-4 tabs prn predniSONE (predniSONE 20 mg oral tablet) 2 Tablet(s), Oral, once a day x 5 day(s) New Routed to [facility] [address] SUMAtriptan (SUMAtriptan 50 mg oral tablet) 1 [...] the Following Medications: Medication list as of 02-27-15 07:38 Attention: If you have any medications at home that are not on this list, DO NOT take them until youcontact your provider for clarification. Give a copy of your medication list to your primary care provider. Update your medication list any time medications or doses are changed and carry your medication list at all times in case of emergency. Electronically Signed By: LEONORA NATHAN MD Signed On:27-FEB-2015 07:38:18 Your Allergies & Intolerances Substance Reaction Symptoms [...] if you dont have one. Go to [email or web address] and click on Create Your Account. Then, follow the directions to complete the online form. Youll be asked for your [facility] number which you can find at the top of this document. Your Goals/Additional instructions: Source: [facility] POWERCHART Document Id: [id number] Miscellaneous - Leonora Farias M.D. - 02/27/2015 7:38 AM CDT Ambulatory Discharge Medication List [address] [id number] Visit Information Name: PUNEET FRIED [facility] Number: [id number] Visit Date: 02/27/2015 07:38:26 Attending Provider: LEONORA NATHAN MD Primary Care Provider: ALISON MONACO PA-C [...] Take Indications/Special Instructions/Comments/Notes for Patient Medication Changes/Routing cephalexin (Keflex 500 mg oral capsule) 1 cap, Oral, two times a day x 10 day(s) New Routed to [address] [address] EPINEPHrine (EpiPen Auto-Injector 0.3 mg injectable kit) 0.3 mg, Intramuscular, as directed as needed for Other - per order comments [facility] [employer] HYDROcodone-acetaminophen (Vicodin 5 mg-300 mg oral tablet) 1 Tablet(s), Oral, every 6 hours as needed for Pain No more than 4,000mg acetaminophen/24hrs ibuprofen (ibuprofen 200 mg oral tablet) See Instructions 3-4 tabs prn predniSONE (predniSONE 20 mg oral tablet) 2 Tablet(s), Oral, once a day x 5 day(s) New Routed to [address] [address] SUMAtriptan (SUMAtriptan 50 mg oral tablet) 1 [...] the Following Medications: Medication list as of 02-27-15 07:38 Attention: If you have any medications at home that are not on this list, DO NOT take them until youcontact your provider for clarification. Give a copy of your medication list to your primary care provider. Update your medication list any time medications or doses are changed and carry your medication list at all times in case of emergency. Electronically Signed By: LEONORA NATHAN MD Signed On:27-FEB-2015 07:38:18 Additional Information: Source: [facility] POWERCHART Document Id: [id number] Miscellaneous - Trace Khan, L.P.N. 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/History Entered On: 02/27/2015 7:10 CDT Performed On: 02/27/2015 7:10 CDT by TRACE KHAN LPN Intake Chief Complaint : ST Onset of Symptoms : fever, x3-4 days LMP Date : 02-20-2015 Temperature Core : 35.8 DegC(Converted to: 96.4 DegF) (LOW) Peripheral Pulse Rate : 104 /min (HI) Respiratory Rate : 16 /min Systolic Blood Pressure : 128 mmHg Diastolic Blood Pressure : 84 mmHg NIBP Mean : 99 mmHg SpO2 : 96 % Actual Weight : 139.2 kg(Converted to: 306 lb 14 oz) Dosing Weight Clinic : 139.2 kg Clinic BSA : 2.46 Body Mass Index : 56.47 kg/m2 TRACE KHAN LPN - 02/27/2015 7:12 CDT Heart Rhythm : Regular BP Location : Left upper extremity Blood Pressure Cuff Size : Large Oxygen Therapy : Room air Height : 157 cm(Converted to: 5 ft 2 inch(es), 62 inch(es)) Weight Source : Standing scale TRACE KHAN LPN - 02/27/2015 7:10 CDT General Info Information Given By : Patient Preferred Communication Mode : Verbal Languages : Hebrew Is Patient Female and 13-50 no hysterectomy : Yes Status : Patient denies Are you ? : No TRACE KHAN SOLVENT PLANT OPERATOR - 02/27/2015 7:10 CDT Subjective Pain Symptoms : No TRACE KHAN [facility] - 02/27/2015 7:10 CDT Dependent Habits Tobacco Use/Currently Using : Yes Tobacco Use/Advised to Quit : Yes Exposure to Tobacco Smoke : Patient smokes Smoking Status : Current every day smoker TRACE KHAN [facility] - 02/27/2015 7:10 CDT Tobacco Use Grid Type : Cigarettes Cigarette Use Packs/Day : 0.5 TRACE KHAN [facility] - 02/27/2015 7:10 CDT Alcohol Use : No TRACE KHAN [facility] - 02/27/2015 7:12 CDT Caffeine Use Grid Caffeine Use : Current Type : Coffee, Soft drinks Frequency : Occasionally TRACE KHAN [facility] - 02/27/2015 7:12 CDT TRACE KAHN [facility] - 02/27/2015 7:10 CDT Recreational Drug Use Grid Drug Use : None TRACE KHAN [facility] - 02/27/2015 7:10 CDT Source: [facility] [employer] Document Id: [id number] CDT!21 documented in this encounter Plan of Treatment Scheduled Procedures Name Priority Associated Diagnoses Date/Time COLONOSCOPY Diarrhea documented as of this encounter Procedures Procedure Name Priority Date/Time Associated Diagnosis Comme nts RAPID STREP A Routine 02/27/2015 7:10 AM Results for this SCREEN CDT procedure are i n the results section. documented in this encounter Results (ABNORMAL) Rapid Strep A Screen (02/27/2015 7:10 AM CDT) [facility] gist Method Time Signature HXStrep A (POSITIVE) POWERCHART Screen Rapid HXFinal Positive for POWERCHART Group A Strep by rapid screen. Specimen (Source) Anatomical Collection Method Collection Time Re ceived Time Location / / Volume Laterality Throat 02/27/2015 7:10 AM CDT Leonora Flaherty M.D. LAB MICROBIOLOGY - GENE RAL ORDERABLES Performing Organization Address City/State/ZIP Code Phon e Number POWERCHART documented in this encounter Visit Diagnoses Not on filedocumented in this encounter Additional Health Concerns Assessment Noted Time PHQ-9 Depression Total Score: 11 12/13/2014 9:50 AM CD T documented as of this encounter
--- OUTSIDE RECORDS SUMMARY | 2022-06-29 09:33 | XMS_ITS | Encounter Summary ---
:1985 Author Organization [facility] Address [address] [place] [address] Care Team Providers Name Role Phone Unavailable Primary Care Provider Unavailable Encounter Details Date Type Department Care Team Description 05/04/2014 Hospital Encounter HX [facility] Oralia San O.D. Social History Tobacco [...] or relatives? How often do you attend restorationist or voodoo More than 4 time s per year 07/09/2020 services? Do you belong to any clubs or organizations No 04/19/2019 such as restorationist groups, unions, fraternal or athletic groups, or [...] - - Height 158 cm (5' 2.21) 05/04/2014 10:51 AM CDT Body Mass Index - - documented in this encounter Progress Notes Vu Craven C.O.Maureen. - 05/04/2014 10:54 AM CDT C.C ( EYE EXAM ) HPI (PATIENT STATES SHE FEELS HER VISION IS NOT CLEAR. LAST EXAM WAS AT DR. DURAN' OFFICE. SHE WEARS SOFT CONTACTS. SHE FREQUENTLY SLEEPS IN THEM. NO RAMÍREZ OR HEADACHES. NO WATERING OR MATTERING. ) REVIEW OF SYSTEMS: Skin: NEGATIVE (X); OTHER (_) Eyes: NEGATIVE (x); OTHER (_) Ears/Nose/Throat: NEGATIVE (x); OTHER (_) Respiratory: NEGATIVE (x); OTHER (_) Cardiovascular: NEGATIVE (x); OTHER (_) Gastrointestinal: NEGATIVE (x); OTHER (_) Genitourinary: NEGATIVE (x); OTHER (_) Musculoskeletal: NEGATIVE (x); OTHER (_) Neurologic: NEGATIVE (x); OTHER (_) Psychiatric: NEGATIVE (x); OTHER (_) Hematologic/Lymphatic/Immunologic: NEGATIVE (x); OTHER (_) Endocrine: NEGATIVE (x); OTHER (_) MEDICATIONS: Refer to Medication List FAMILY HISTORY: Refer to Family History in chart Distance Right Eye Left Eye Both Eyes CC 20/( 100 ) 20/( 50 ) 20/( 50 ) SC 20/( 400 ) 20/( 400 ) 20/( 200 ) Pinhole 20/(_) 20/(_) 20/(_) Correction ( _ )GLASSES (X) CONTACTS Near Right Eye Left Eye Both Eyes @ 16 in CC ( _ ) ( _ ) 20/( 30 ) @ 16 in SC ( _ ) ( _ ) 20/( _ ) CURRENT CONTACTS: TYPE: (BIOMEDIC 55 ) RIGHT EYE: (8.6 -2.00) LEFT EYE: (8.6 -2.00) LAST PURCHASED AT: (DR. RAO) WEARING TODAY FOR: (3 DAYS [place] DAILY WEAR: (_) HOURS THIS PAIR IS (3 DAYS OR: -1.25 20/25-2 -0.50 20/40 CL:GOOD MOVEMENT AND CENTRATION OU TRIALS ACERIKA GARGSYS 8.4/14.0 -3.50 8.4/14.0 -3.00===== RECHECK 2 WEEKS WITH CL CHECK OR: PLANO 20/25- PLANO 20/25-2 CL:GOOD MOVEMENT AND CENTRATION OU ON EXAM: Near point convergence: ( TN ) Mobility: ( FROM ) Pupils: ( PERRLA ) no afferent defect ( _ ) Other: Visual Field: ( X ) WNL right eye & left eye ( _ ) Other: Induced Phorias: Distance: ( 1X ) Near: ( 6X' ) Vertical Phoria: ( ORTHO ) Current RX: Sphere Cylinder [place] Add Prism Right Eye ( -2.00 ) ( _ ) ( _ ) ( _ ) ( _ ) Left Eye ( -2.00 ) ( _ ) ( _ ) ( _ ) ( _ ) Refraction RET Right Eye ( _ ) ( _ ) ( _ ) ( _ ) RET Left Eye ( _ ) ( _ ) ( _ ) ( _ ) MR Right Eye ( -3.50 ) ( _ ) ( _ ) 20/( 30-2 ) VA Both Eyes MR Left Eye ( -3.00 ) ( +0.50 ) ( 065 ) 20/( 25-2 ) 20/(25+ ) Final RX: MR IOP Right Eye: ( 21 ) Left Eye: ( 20 ) Tonometry: ( APPLANATION ) Dilation Medication: ( X ) Tropicamide 1.0% Electronically Signed By: ORALIA ROACH OD On: 05/04/2014 11:27 AM Modified by and Electronically Signed by: VU CRAVEN COA On: 05/04/2014 10:59 AM Co-Signed By: ORALIA ROACH OD On: 05/04/2014 11:27 AM Source: [facility] POWERCHART Document Id: [id number] documented in this encounter H&P Notes Oralia Roach O.D. - 05/04/2014 10:37 AM CDT [id number] The patient is in today noticing some decrease in vision at distance. Has contact lenses. Needs replacement. Review of patient's past, family, social history, along with meds and allergies show no changes. PHYSICAL EXAMINATION SLIT-LAMP EXAMINATION: Shows angles to be open. CORNEA AND LENS: No apparent pathology. MEDIA: Clear, both eyes. Bulbar and palpebral, conjunctivae clear. LIDS: Had 3+ papules on an upper lid, right eye slightly worse than the left eye. INTERNAL: C/D 0.25, 0.25. A/V 2/3. FUNDUS: No apparent pathology. Macular reflex minus, both eyes. 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 PLAN: Manifest refraction was given for new glasses. Trials for Acuvue [place] were dispensed along with Biotrue kit. Patient will also be using Blink rewetting drops 4 times a day. Re-evaluate fit in 1 to 2 weeks before ordering as replacements. She was warned of the chronic nature of papules and the po ssibility if she over wears her contacts that she cannot wear them in the future. Re-evaluate as scheduled. Full exam in 2 years. Oralia Roach O.D./robb Electronically Signed By: ORALIA ROACH OD On: 05/07/2014 09:34 AM Source: [facility] MHSDOLBEYNONRADSYS Document Id: [id number] documented in this encounter Miscellaneous Notes Miscellaneous - Monique Martinez C.O.A. - 05/08/2014 11:25 AM CDT Reminder Msg 2 yr recall rosemary Document Contains Addenda Addendum by VU CRAVEN on April 14, 2016 12:26:34 CDT orders placed From: MONIQUE MARTINEZ To: Ophthalmology Nurse/Tech; Sent: 05/08/2014 11:25:05 CDT Show up: 04/07/2016 11:25:00 CDT Subject: Reminder Msg 2 yr recall rosemary Due Date/Time: 05/08/2016 11:25:00 CDT Please Remember to: PATIENT: ( ) Call Patient ( ) Ask Patient to ( ) ( ) Call Relative ( ) Schedule Patient ( [address] orders if needed ) ( ) Call for Speeder Tender ( ) Follow up on Results ( ) Other: PROVIDER: ( ) Call Physician ( ) Call Pharmacist ( ) Call Lab ( ) Other: Special Instructions: Comments: Source: [facility] POWERCHART Document Id: [id number] Electronically signed by Roland [facility] Electronic Publications Specialist [id number] at 01/19/2017 11:34 AM CDT Miscellaneous - Oralia Roach O.D. - 05/04/2014 11:49 AM CDT Ambulatory Patient Summary [facility] [address] [place] [address] [address] [place], [place] [phone] Visit Information Name: FRIEDPUNEET CLAY CHRISTIANO [facility] Number: [id number] Current Date: 05/04/2014 11:49:30 Physicians Attending Provider: ORALIA ROACH OD Primary Care Provider: MICHELLE BEAR MD FRIEDDORITAPUNEETCARRIE ALVARADO has been given the following list [...] mg intrauteral device) See Instructions placed 02/06/08 *propranolol (Inderal LA 80 mg oral capsule, extended release) 2 cap, Oral, once a day * You have let us know that you are not taking this medication as listed. Please talk with your primary care provider or the health care provider who prescribed the medication as soon as possible. Stop Taking the Following Medications: Medication list as of 05-04-14 11:49 Attention: If you have any medications at [...] Electronically Signed By: ORALIA ROACH OD Signed On:04-MAY-2014 11:48:28 Your Allergies & Intolerances Substance Reaction Symptoms Category Comments penicillins Drug Your Problem List Problem Status Onset Comments Active 08/23/2007 Headache Migraine Active 01/21/2012 Headache Active 10/24/2007 11/18/13 Headache Dysthymic Disorder Active 08/01/2010 11/18/13 Dysthymic disorder Your Upcoming Appointments Date Time Location Provider No Appointments found Attention: Contact your local Clinic if further appointment detail needed. Your Goals/Additional instructions: Source: [facility] POWERCHART Document Id: [id number] Miscellaneous - Oralia Roach O.D. - 05/04/2014 11:49 AM CDT Ambulatory Discharge Medication List [facility] [address] [place], [place] [phone] Visit Information Name: PUNEET FRIED [facility] Number: [id number] Visit Date: 05/04/2014 11:49:29 Attending Provider: ORALIA ROACH OD Primary Care [...] mg intrauteral device) See Instructions placed 02/06/08 *propranolol (Inderal LA 80 mg oral capsule, extended release) 2 cap, Oral, once a day * You have let us know that you are not taking this medication as listed. Please talk with your primary care provider or the health care provider who prescribed the medication as soon as possible. Stop Taking the Following Medications: Medication list as of 05-04-14 11:49 Attention: If you have any medications at [...] Electronically Signed By: ORALIA ROACH OD Signed On:04-MAY-2014 11:48:28 Additional Information: Source: [facility] POWERCHART Document Id: [id number] Miscellaneous - Vu Craven C.O.A. 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 : No VU CRAVEN - 05/04/2014 10:51 CDT Subjective Pain Symptoms : No VU CRAVEN - 05/04/2014 10:51 CDT Dependent Habits Tobacco Use/Currently Using : Yes Exposure to Tobacco Smoke : Patient smokes Smoking Status : Current every day smoker VU CRAVEN - 05/04/2014 10:51 CDT Tobacco Use Grid Type : Cigarettes Cigarette Use Packs/Day : 0.5 Last Use : 04/30/2014 VU CRAVEN - 05/04/2014 10:51 CDT Caffeine Use Grid Caffeine Use : Current Type : Coffee, Soft drinks Frequency : Daily VU CRAVEN - 05/04/2014 10:51 CDT Recreational Drug Use Grid Drug Use : None VU CRAVEN - 05/04/2014 10:51 CDT Source: [employer] Document Id: [id number] CDT!29 documented in this encounter Plan of Treatment Scheduled Procedures Name Priority Associated Diagnoses Date/Time COLONOSCOPY Diarrhea documented as of this encounter Visit Diagnoses Not on filedocumented in this encounter Additional Health Concerns Assessment Noted Time PHQ-9 Depression Total Score: 18 05/02/2014 9:45 AM CD T documented as of this encounter
--- OUTSIDE RECORDS SUMMARY | 2022-06-29 09:33 | XMS_ITS | Encounter Summary ---
:1985 Author Organization [facility] Address [address] [place] [address] Care Team Providers Name Role Phone Unavailable Primary Care Provider Unavailable Encounter Details Date Type Department Care Team Description 01/24/2015 - Hospital Encounter HX [facility] ED Rizwan Dean M.D. 01/25/2015 [address] [place] [address] (Wo rk) Social History Tobacco [...] How often do you attend protestant or gnosticist More than 4 time s per year [...] Sign Reading Time Taken Comments Blood Pressure 145/86 01/25/2015 12:16 AM CDT Pulse 96 01/25/2015 12:16 AM CDT Temperature - - Respiratory Rate 20 01/24/2015 10:41 PM CDT Oxygen Saturation - - Inhaled Oxygen Concentration - - Weight - - Height 157 cm (5' 1.81) 01/24/2015 10:41 PM CDT Body Mass Index - - documented in this encounter Discharge Summaries Mag, Pati Stout R.N. - 01/25/2015 12:43 AM CDT ED Discharge Instructions [address] [place] [address] Name: PUNEET FRIED Date of : 1985 12:00 AM Visit Date: 01/24/2015 10:25 PM [facility] Number: [id number] Address: [address] [place] [phone] Primary Care Provider: ALISON MONACO PA-C IMPORTANT: [facility] in [place] would like to thank you for allowing us to assist you with your healthcare needs. The following includes patient education materials and information regarding your injury/illness. Diagnosis: Angioedema Initial; Urticaria Allergic Follow-Up Instructions: With: Address: When: ALISON MONACO [address] [place] [phone] Business (1) Within As Needed Comments: Your Upcoming Appointments: Date Time Location Provider No Appointments found Patient Education Materials: Insect Sting Allergy,Generalized You are having an allergic reaction to an insect sting. This may occur after a sting by a wasp, honeybee, yellow jacket or other insect. This may cause an itchy rash and swelling in the face or other parts of the body. A more severe reaction may cause you to feel dizzy or faint or have trouble breathing or swallowing. Insect stings may also become infected 1-3 days later, so watch for the warning signs below. Home Care: ?? Avoid tight clothing and things that heat up your skin (such as hot showers or baths, or direct sunlight). Heat makes the itching worse. ?? An ice pack (ice cubes in a plastic bag, wrapped in a towel) will relieve local areas of intense itching and redness. Lanacaine cream or Solarcaine spray (or other [...] is a good alternative for daytime use. ?? You may use acetaminophen (Tylenol) or ibuprofen (Motrin, Advil) to control pain, unless another pain medicine was prescribed. [NOTE: If you have chronic liver or kidney disease or ever had a stomach ulcer or GI bleeding, talk with your doctor before using these medicines.] Preventing Future Reactions: ?? Future reactions could be worse than this one, so try to avoid situations where you might be stung again. ?? Be aware that honeybees nest in trees. Wasps and yellow jackets nest in the ground, trees or roofeaves. ?? If you are stung by a honeybee a stinger will remain in your skin. Wasps, yellow jackets, hornetsdo not leave a stinger behind. In either case, move away from the nest area immediately to avoid more stings. (The stinger of a honeybee releases a substance that will attract other bees to you.) ?? After you are safely away from the nest, remove the stinger as quickly as possible, by scraping it out with the edge of a dull knife or plastic card (credit card). Do not use a tweezer or your fingers, since that may squeeze more toxin from the stinger. ?? After any sting, you may apply ice and take Benadryl or other antihistamine. If you develop any of the warning signs below, seek help immediately. ?? If you are at high risk for another sting due to where you work or play, or if your reaction included dizziness, fainting or trouble breathing or swallowing, an Insect Allergy Kit or Epi-Pen may be prescribed. If not, ask your doctor for one and carry it with you when you are in a risk area. Learn how to use the device. If you begin to feel the symptoms of another reaction in the future, use the Epi-Pen to inject yourself, and then call 911. Don't wait until symptoms become severe. Follow Up with your doctor or this facility in the next two days if your symptoms do not continue to improve. Get Prompt Medical Attention if any of the following occur: ?? Spreading areas of itching, redness or swelling ?? New or worse swelling in the face, eyelids, lips, mouth, throat or tongue ?? Trouble swallowing or breathing ?? Dizziness, weakness or fainting ?? Headache, fever, chills, muscle or joint aching, vomiting, ?? Increased pain or swelling ?? Fever of 100.4?F (38?C) or higher, or as directed by your healthcare provider ?? Colored fluid draining from the wound ?? [address] [place] [address]. All rights reserved. This information is not intended as a substitute for professional medical care. Always follow your healthcare professional's instructions. Angioedema Angioedema (pronounced etcao-h-abhpb) is a sudden appearance of swollen patches (edema) on the skin or mucous membranes. The swelling is painless and does not itch. It most often involves the face, lips, mouth, tongue, back of throat or vocal cords. It may also occur in other places such as the arms or legs. A rash may also appear during the first 4 days of this illness. The most common cause for this condition is a side-effect to a class of medicine called BRENT inhibitor. This type of drug is used to treat high blood pressure. It includes captopril (Capoten), enalapril(Vasotec) and lisinopril (Prinivil, Zestril). Tell your doctor if you are taking any of these medicines. Other causes of angioedema include allergic reaction to something eaten, touched or inhaled. Angioedema may also be hereditary. In some cases, no cause can be found. Angioedema can lead to the swelling of the air passage in the mouth or throat. Severe swelling can block your breathing and cause . Your doctor believes that you are not at risk for this; however,be alert for early signs of increased swelling in the mouth or throat, or difficulty with swallowingor breathing. Angioedema may recur. It is therefore important to watch for the earliest signs of this condition (below). Return to the hospital promptly if swelling involves the face, mouth or throat areas. Home Care: Rest quietly today. No heavy exertion or excess physical activity. If you were told that your angioedema was from a medicine that you are taking, you must stop taking this medicine. Contact your doctor for a different one. In the future, advise medical staff that you are allergic to this medicine. If medicine was prescribed to treat angioedema (for example, steroids or antihistamines), take it asdirected. Oral Benadryl (diphenhydramine) is an antihistamine available at drug and grocery stores. Unless another antihistamine was prescribed, Benadryl may be used to reduce swelling or itching. Use lower doses during the daytime and higher doses at bedtime since the drug may make you sleepy. [NOTE: Do not use Benadryl if you have glaucoma or if you are a man with trouble urinating due to an enlarged prostate.] Claritin (loratidine) is an antihistamine that causes less drowsiness and is a good alternative for daytime use. Follow Up with your doctor or as advised by our staff. Get Prompt Medical Attention if any of the following occur: ?? Increase in swelling of lip, mouth, tongue or throat ?? Trouble swallowing ?? Trouble breathing ?? Severe abdominal pains ?? [id number], [place] [address]. All rights reserved. This information is not intended as a substitute for professional medical care. Always follow your healthcare professional's instructions. ED Tests and Procedures: Order Status Discharge Prescriptions & Home Medications: Medication/Strength Dose Route Frequency Indications/Special Instructions/Comments/Notes EPINEPHrine (EpiPen Auto-Injector 0.3 mg injectable kit) [...] increase to 2 tabs daily as tolerated. *SUMAtriptan (SUMAtriptan 50 mg oral tablet) 50 mg [...] ride home with a responsible green party. IFARIHA AMANDA KAY , or responsible green party have received this information and my questions have been answered. I have discussed any challenges I see with this plan with the nurse or physician. Patient Signature or Responsible Alliance Party/Relationship Date Time Provider Signature Date Time Medication Reconcili ation: Reconciliation is a process of identifying the most accurate list of allmedications a patient is taking - including name, dosage, frequency, and route - and using this listto provide to the patient information about how [...] ride home with a responsible green party. FARIHA Cornejo AMANDA KAY , or responsible green party have received this information and my questions have been answered. I have discussed any challenges I see with this plan with the nurse or physician. Patient Signature or Responsible Alliance Party/Relationship Date Time Provider Signature Date Time This document has images extracted. Please consider using [employer] for all your patient education needs. Source: [facility] POWERCHART Document Id: [id number] Pati Shepard R.N. - 01/25/2015 12:43 AM CDT ED Depart Summary [facility] Emergency Department Clinical Discharge Summary PERSON INFORMATION Name PUNEET FRIED Age 29 Years 1985 12:00 AM Sex Female Language Venezuelan PCP ALISON MONACO PA-C Marital Status Single Visit Id Visit Reason Insect bite and/or sting; ALLERGIC REACTION TO BUG BITE Specialty Enc Type Emergency Med Service Emergency Medicine Referred by Track Group [facility] ED Discharge 01/25/2015 12:35 AM Tracking Id [id number] Checkout 01/25/2015 12:35 AM Checkin 01/24/2015 10:25 PM Acuity 4 -Less Urgent Dispo Type * Discharged to Home or Self Care Arrival 01/24/2015 10:25 PM Reg Status Complete LOS 000 02:10 Address: [address] [place] [phone] Comment: PROVIDER INFORMATION Provider Role Provider Contact Time KAREY PENA [employer] PROFESSOR Nurse 01/24/15 22:32 PATI SEHPARD RN ED Nurse 01/24/15 23:08 SLIM DEAN MD ED Provider 01/24/15 23:37 DIAGNOSIS Angioedema Initial; Urticaria Allergic Comment: PATIENT EDUCATION INFORMATION Instructions: ALLERGIC REACTION, Insect (General); ANGIOEDEMA Follow up: With: Address: When: ALISON MONACO [address] [place] [phone] [employer] (5) Within As Needed Comments: Source: [facility] POWERCHART Document Id: [id number] documented in this encounter ED Notes Pati Shepard R.N. - 01/25/2015 12:35 AM CDT ED Disposition Summary ED Disposition Summary Entered On: 01/25/2015 0:41 CDT Performed On: 01/25/2015 0:35 CDT by PATI SHEPARD RN ED Disposition Summary Accompanied By : Friend Mode of Discharge : Ambulatory Transportation : Private vehicle Printed Discharge Instructions Given to Patient : Yes Patient Status at Discharge from ED : Improved PATI SHEPARD RN - 01/25/2015 0:40 CDT Source: [facility] Fon Document Id: [id number] CDT!7 Slim Dean - 01/24/2015 11:36 PM CDT Insect bite and/or sting Patient: PUNEET FRIED Age: 29 years Sex: Female : 1985 Author: SLIM DEAN MD Attachments: None Associated Diagnosis: Angioedema Initial; Insect bite and/or sting; Urticaria Allergic Basic Information Additional information: Chief Complaint from Nursing Triage Note : Chief Complaint Description 01/24/2015 22:37 CDT Chief Complaint Description 29 year old female with complaints of a bug bite onthe left side of the neck. Patient is having hot flashes and SOB at times. Bug bite patient around 0530pm tonight. . History of Present Illness The patient presents with an insect sting. The onset was 4 hours ago. Location: Right neck. The character of symptoms is itching and pain. Risk factors consist of prior allergic reaction. Therapy today: none. Associated symptoms: rash, swelling and feels tightness in throat, swelling in right hand andbilateral feet. . Review of Systems Constitutional symptoms: Fatigue. Skin symptoms: Negative except as documented in HPI. Eye symptoms: Negative except as documented in HPI. ENMT symptoms: Negative except as documented in HPI. Respiratory symptoms: Shortness of breath. Cardiovascular symptoms: Negative except as documented in HPI. Gastrointestinal symptoms: Negative except as documented in HPI. Genitourinary symptoms: Negative except as documented in HPI. Neurologic symptoms: Negative except as documented in HPI. Health Status Allergies: Allergic Reactions (Selected) Severity Not Documented Penicillins- No reactions were documented.. Past Medical/ Family/ Social History Problem list: All Problems / V22.2 / Confirmed Headache / 784.0 / Confirmed Headache Headache Migraine / 346.90 / Confirmed Abuse Tobacco Smoking NOS / 305.1 / Confirmed Dysthymic Disorder / 300.4 / Confirmed Dysthymic disorder Resolved: / [id number]. Physical Examination Vital Signs: Vital Signs 01/24/2015 22:41 CDT Temperature Core 36.5 DegC Peripheral Pulse Rate 100 /min Respiratory Rate 20 /min SpO2 98 % Systolic Blood Pressure 133 mmHg Diastolic Blood Pressure 97 mmHg >HHI . General: Anxious. Skin: Warm, dry and Rash: Neck , urticarial. Eye: Pupils are equal, round and reactive to light and normal conjunctiva. Ears, nose, mouth and throat: Tympanic membranes clear and oral mucosa moist. Neck: Supple and trachea midline. Cardiovascular: Regular rate and rhythm. Respiratory: Lungs are clear to auscultation. Musculoskeletal: Patient reports feet are swollen more than normal, though it is non-pitting, and not obvious to this observer. Neurological: Alert and oriented to person, place, time, and situation and No focal neurological deficit observed. Medical Decision Making OrdersLaunch Orders Pharmacy: Benadryl (Order Processing): 50 mg, IM, Once epinephrine 1:1,000 injectable solution (Order Processing): 0.3 mg, IM, Once. Impression and Plan Diagnosis Angioedema Initial (Discharge, Emergency medicine, Medical) Complaint of Insect bite and/or sting (Reason For Visit, Emergency medicine, Medical) Urticaria Allergic (Discharge, Emergency medicine, Medical) Plan Condition: Improved. Disposition: Discharged: Time 01/25/2015 00:35:00, to home. Prescriptions: Prescription [facility]: EpiPen Auto-Injector 0.3 mg injectable kit (Prescribe): 0.3 mg, IM, As Directed, PRN: Other - per order comments, 1 each, 3 Refill(s). Patient was given the following educational materials: ALLERGIC REACTION, Insect (General), ANGIOEDEMA. Follow up with: ALISON Hudson As Needed. Electronically Signed By: SLIM DEAN MD On: 01/25/2015 01:46 AM Modified by and Electronically Signed by: SLIM DEAN MD On: 01/25/2015 12:36 AM Source: [facility] POWERCHART Document Id: [id number]} Karey Pena, R.N. - 01/24/2015 10:37 PM CDT ED Primary Assessment Document Has Been Updated ED Primary Assessment Entered On: 01/24/2015 22:40 CDT Performed On: 01/24/2015 22:37 CDT by KAREY PENA RN Reason For Visit (As Of: 01/24/2015 22:40:16 CDT) Problems(Active) Abuse Tobacco Smoking NOS (ICD-9-CM [...] Medical ; Code: V22.2 ; Contributor System: [employer] ; Last Updated: 01/21/2012 9:41 CDT ; Life Cycle Date: 01/12/2012 ; Life Cycle Status: Active ; Responsible Provider: GLEN ACOSTA; Vocabulary: ICD-9-CM Diagnoses(Active) Insect bite and/or sting Date: 01/24/2015 ; Diagnosis Type: Reason For Visit ; Confirmation: Complaint of ; Clinical Dx: Insect bite and/or sting ; Classification: Medical ; Clinical Service: Emergencymedicine ; Code: PNED ; Probability: 0 ; Diagnosis Code: [id number] Triage Chief Complaint Description : 29 year old female with complaints of a bug bite on the left side of the neck. Patient is having hot flashes and SOB at times. Bug bite patient around 0530pm tonight. Information Given By : Patient, Friend Accompanied By : Friend Mode of Arrival ED : Private vehicle Track : Medical Languages : Venezuelan Treatments Prior to Arrival : None Are you ? : No Is Patient Female and 13-50 no hysterectomy : Yes Status : Patient denies KAREY PENA RN - 01/24/2015 22:37 CDT Pain Assessment Pain Symptoms : No KAREY PENA RN - 01/24/2015 22:37 CDT ED Physician Notification Time ED Physician Notification Time : 01/24/2015 22:39 CDT KAREY PENA RN - 01/24/2015 22:37 CDT Allergy (As Of: 01/24/2015 22:40:16 CDT) Allergies (Active) penicillins Estimated Onset Date: Unspecified ; Created By: GLEN ACOSTA; Reaction Status: Active ;Category: Drug ; Substance: penicillins ; Type: Allergy ; Updated By: GLEN ACOSTA; Reviewed Date: 01/24/2015 22:39 CDT Respiratory Airway : Patent Respirations : Unlabored Respiratory Pattern : Regular KAREY PENA RN - 01/24/2015 22:37 CDT Cardiovascular Heart Rhythm : Regular Skin Color : Normal for ethnicity Skin Description : Dry Skin Temperature : Warm KAREY PENA RN - 01/24/2015 22:37 CDT Neurological Last Well Time Known : Yes Last Known Well Time : 01/24/2015 17:00 CDT Level of Consciousness : Alert Orientation : Oriented x 3 Characteristics of Speech : Appropriate for age KAREY PENA RN - 01/24/2015 22:37 CDT ED Psychosocial Affect/Behavior : Calm, Cooperative, Appropriate Domestic Abuse Concerns : None Behavioral Health Screen/Safety Assmt : No KAREY PENA RN - 01/24/2015 22:37 CDT Gastrointestinal Nutrition ED : Adequate KAREY PENA RN - 01/24/2015 22:37 CDT Musculoskeletal Fall Prevention Education Provided : Yes KAREY PENA RN - 01/24/2015 22:37 CDT Social Habits Tobacco Use/Currently Using : Yes Exposure to Tobacco Smoke : Patient smokes Smoking Status : Current every day smoker KAREY PENA RN - 01/24/2015 22:37 CDT Tobacco Use Grid Type : Cigarettes Cigarette Use Packs/Day : 0.5 KAREY PENA RN - 01/24/2015 22:37 CDT Alcohol Use Grid Alcohol Use : Yes KAREY PENA RN - 01/24/2015 22:37 CDT Recreational Drug Use Grid Drug Use : None KAREY PENA RN - 01/24/2015 22:37 CDT [facility] Document Id: [id number] CDT!53 documented in this encounter Miscellaneous Notes Miscellaneous - Pati Shepard R.N. - 01/25/2015 12:35 AM CDT Valuables/Belongings Valuables/Belongings Entered On: 01/25/2015 0:41 CDT Performed On: 01/25/2015 0:35 CDT by PATI SHEPARD RN Valuables/Belongings Valuables/Belongings Grid Valuables with Patient Clothes, Patient Valuables : Other: cellphone PATI SHEPARD RN - 01/25/2015 0:41 CDT Source: [facility] Fon Document Id: [id number] CDT!5 Miscellaneous - Conversion, Historical Provider Ser - 01/25/2015 12:35 AM CDT Coding Summary-Paper Based CODING DATE: 02/07/2015 FINAL [facility] STATUS: * Discharged to Home or Self Care PAYOR: [employer] ADMIT DX: 698.9 Unspecified Pruritic Disorder REASON FOR VISIT DX: 698.9 Unspecified Pruritic Disorder FINAL DX: PRINCIPAL: 995.1 Angioneurotic Edema, Not Elsewhere Classified SECONDARY: E928.8 Other Accidents PROCEDURES DOCTOR NAME DATE NOTE: The code number assigned matches the documented diagnosis and / or procedure in the patient's chart. However, the narrative phrase printed from the coding software may appear abbreviated, or result in slightly different terminology. Coded By: ADELINA ZENG Date Saved: 02/07/2015 11:40 am Source: [facility] Fon Document Id: [id number] Miscellaneous - Pati Shepard R.N. - 01/25/2015 12:17 AM CDT Communication Note Communication Note Entered On: 01/25/2015 0:17 CDT Performed On: 01/25/2015 0:17 CDT by PATI SHEPARD RN Communication Assessment Communication Note : Feeling better. PATI SHEPARD RN - 01/25/2015 0:17 CDT [facility] Document Id: [id number] CDT!3 Miscellaneous - Pati Shepard R.N. - 01/24/2015 10:25 PM CDT Facility Charge Ticket 2.0 11.0 DX Facility Charge Ticket 2.0 11.0 DX Entered On: 01/25/2015 0:43 CDT Performed On: 01/24/2015 22:25 CDT by PATI SHEPARD RN Facility Charge Ticket 2.0 11.0 DX ED Other Charges : Standard ED Encounter TVL Level Translated RTF : Insect bite and/or sting TVL:1 TVL Level for Facility Charge Ticket : Level 1 Arrival Mode Calc : 1 Mode of Arrival ED : Private vehicle [facility] Mode of Arrival Interpreted : Standard [facility] Process Management : None [facility] Order Management : None 30 Minutes Critical Care : No Nursing Notes RTF : Nursing Notes ED Primary Assessment,01/24/15 22:37,KAREY PENA RN Communication Note,01/25/15 00:17,PATI SHEPARD RN [facility] Nursing Assessment : Triage and 1-2 nursing assessments [facility] Disposition : Discharge Disposition RTF : discharge [facility] Total Points with Diagnosis Control : 2 [facility] Visit Level : 95078 Level 2 Treatments Prior to Arrival : None PATI SHEPARD RN - 01/25/2015 0:41 CDT Source: [employer] Document Id: [id number] CDT!18 documented in this encounter Plan of Treatment Scheduled Procedures Name Priority Associated Diagnoses Date/Time COLONOSCOPY Diarrhea documented as of this encounter Visit Diagnoses Not on filedocumented in this encounter Additional Health Concerns Assessment Noted Time PHQ-9 Depression Total Score: 11 12/13/2014 9:50 AM CD T documented as of this encounter
--- OUTSIDE RECORDS SUMMARY | 2022-06-29 09:33 | XMS_ITS | Encounter Summary ---
:1985 Author Organization [facility] Address [address] [place] [address] Care Team Providers Name Role Phone Unavailable Primary Care Provider Unavailable Encounter Details Date Type Department Care Team Description 03/15/2014 Hospital Encounter HX [facility] Jessica Bear M.D. [address] [place], [place] [phone] (Wo rk) Social History Tobacco Use Types [...] How often do you attend hinduism or jehovah's witness More than 4 time s per year [...] - - Height 158 cm (5' 2.21) 03/15/2014 1:26 PM CDT Body Mass Index - - documented in this encounter Miscellaneous Notes Miscellaneous - Michelle Bear M.D. - 03/16/2014 12:12 PM CDT Normal Results Letter 16 March 2014 PUNEET FRIED [address] [place] [id number] Dear PUNEET FRIED, I am pleased to report that your results from the following diagnostic test(s) are normal. Please follow up with us as we discussed during your visit or sooner if you have any concerns. If you have questions or concerns, please do not hesitate to call our office. Result Name Current Result Previous Result Normal Range Sodium Lvl (mmol/L) 140 03/15/2014 135 - 145 Potassium Lvl (mmol/L) 4.2 03/15/2014 3.6 - 5.2 Chloride (mmol/L) 103 03/15/2014 98 - 107 CO2 (mmol/L) 29 03/15/2014 22 - 29 AGAP (mmol/L) (L) 7 03/15/2014 10 - 20 Glucose Fasting (mg/dL) 97 03/15/2014 70 - 99 Creatinine (mg/dL) 0.73 03/15/2014 0.60 - 1.10 EGFR (MDRD) (mL/min/1.73m2) >60 03/15/2014 >=60 - EGFR (MDRD) (mL/min/1.73m2) >60 03/15/2014 >=60 - BUN (mg/dL) 11 03/15/2014 6 - 21 Calcium Lvl (mg/dL) 9.4 03/15/2014 8.6 - 10.3 Cholesterol (mg/dL) 137 03/15/2014 - <=200 Trig (mg/dL) 78 03/15/2014 - <=150 HDL (mg/dL) 44 03/15/2014 40 - 60 LDL Calculated (mg/dL) 77 03/15/2014 1 - 130 Chol/HDL Ratio 3 03/15/2014 LDL/HDL 2 03/15/2014 drrTSH (mIU/L) 1.26 03/15/2014 0.30 - 4.20 Hgb (g/dL) 15.0 03/15/2014 12.0 - 15.5 Hct (%) (H) 45.2 03/15/2014 34.9 - 44.5 WBC (x10(9)/L) 9.5 03/15/2014 9.7 11/03/2012 3.5 - 10.5 RBC (x10(12)/L) (H) 5.16 03/15/2014 3.90 - 5.03 MCV (fL) 87.6 03/15/2014 82.0 - 98.0 RDW (%) 13.3 03/15/2014 11.9 - 15.5 Platelet (x10(9)/L) 297 03/15/2014 150 - 450 Sincerely, MICHELLE BEAR [address] [place] [id number] Electronic Signature Electronically Signed By: MICHELLE BEAR MD On: 16 March 2014 This document has images extracted. Source: [facility] POWERCHART Document Id: [id number] Electronically signed by Conversion, [facility] Line Maintenance Technician [id number] at 01/19/2017 1:49 PM CDT documented in this encounter Plan of Treatment Scheduled Procedures Name Priority Associated Diagnoses Date/Time COLONOSCOPY Diarrhea documented as of this encounter Procedures Procedure Name Priority Date/Time Associated Diagnosis Comme nts LIPID PANEL, S Routine 03/15/2014 1:32 PM Results for this CDT procedure are i n the results section. CBC WITHOUT Routine 03/15/2014 1:32 PM Results f or this DIFFERENTIAL, B CDT procedure ar e in the results section. THYROID-STIMULATING Routine 03/15/2014 1:32 PM Re sults for this HORMONE-SENSITIVE CDT procedure are in (S-TSH) the results section. BASIC METABOLIC Routine 03/15/2014 1:32 PM Result s for this PANEL, S/P CDT procedure are i n the results section. documented in this encounter Results (ABNORMAL) CBC without Differential (03/15/2014 1:32 PM CDT) Analysis Performed At Patho logist Time Signature Hematocrit 45.2 (H) 34.9 - POWERCHART 44.5 Hemoglobin 15.0 12.0 - POWERCHART 15.5 GDL MCV 87.6 82.0 - POWERCHART 98.0 FL Platelet Count 297 150 - 450 POWERCHART X109L Erythrocytes 5.16 (H) 3.90 - POWERCHART 5.03 F1998O HX RDW 13.3 11.9 - POWERCHART 15.5 Leukocytes 9.5 3.5 - 10.5 POWERCHART X109L Specimen (Source) Anatomical Collection Method Collection Time Re ceived Time Location / / Volume Laterality Blood 03/15/2014 1:32 PM CDT Michelle Bear M.D. LAB BLOOD ADD-ON Performing Organization Address City/State/ZIP Code Phon e Number POWERCHART Lipid Panel (03/15/2014 1:32 PM CDT) P athologist Signature Cholesterol, 137 <=200 MGDL POWERCHART Total Comment: ADULTS: Desirable: ? < 200 mg/dL Increased Risk: ?? 200-240 mg/dL High Risk: ?> 240 mg/dL PEDIATRIC: National [facility] e Cholesterol Guidelines for Pediatrics and Adolescents: Acceptable: < 170 mg/dL Borderline: 170-199 mg/dL High: > 199 mg/dL HX HDL 44 40 - 60 MGDL POWERCHART Triglycerides 78 <=150 MGDL POWERCHART Comment: The National Cholesterol Education Progr am (NCEP) has set the following guidelines for Triglycerides in adults ages 18 and up: Normal <150 mg/dL Borderline 150-199 mg/dL High 200-499 mg/dL Very High > or = 500 mg/dL The National Cholesterol Education Progr am (NCEP) has set the following guidelines for Triglycerides in children ages 2 to 17. Normal <90 mg/dL Borderline 90-129 mg/dL High > or = 130 mg/dL Calculated LDL 77 1 - 130 MGDL POWERCHART Comment: This is a calculated LDL. ADULT RANGES: Desirable: ?<10 0 mg/dL Low Risk: ?100- 129 mg/dL Borderline High Risk: ??130-159 mg/dL High Risk: ?160 -189 mg/dL Very High Risk: ?>189 mg/dL PEDIATRIC: National Heart, [facility], and Blood [facility] e LDL Guidelines for Pediatrics and Adolescents: Acceptable: < 110 mg/dL Borderline: 110-129 mg/dL High: >129 mg/dL Total Cholesterol/HDL Ratio 3 PO WERCHART HXLDL/HDL 2 POWERCHART Specimen (Source) Anatomical Collection Method Collection Time Re ceived Time Location / / Volume Laterality Blood 03/15/2014 1:32 PM CDT Michelle Bear M.D. LAB BLOOD ADD-ON Performing Organization Address City/State/ZIP Code Phon e Number POWERCHART Thyroid-Stimulating Hormone-Sensitive (s-TSH) (03/15/2014 1:32 PM CDT) P athologist Signature TSH 1.26 0.30 - 4.20 POWERCHART (Thyrotropin) MIUL Specimen (Source) Anatomical Collection Method Collection Time Re ceived Time Location / / Volume Laterality Blood 03/15/2014 1:32 PM CDT Michelle Bear M.D. LAB BLOOD ADD-ON Performing Organization Address City/State/ZIP Code Phon e Number POWERCHART (ABNORMAL) BMP (Basic Metabolic Panel) (03/15/2014 1:32 PM CDT) P athologist Signature Chloride, S 103 98 - 107 POWERCHART MMOLL Sodium, S 140 135 - 145 POWERCHART MMOLL Potassium, S 4.2 3.6 - 5.2 POWERCHART MMOLL Anion Gap 7 (L) 10 - 20 POWERCHART MMOLL BUN (Blood Urea 11 6 - 21 POWERCHART Nitrogen), S MGDL CO2 Total 29 22 - 29 POWERCHART MMOLL Creatinine 0.73 0.60 - POWERCHART 1.10 MGDL Glucose, 97 70 - 99 POWERCHART Fasting, S MGDL Calcium, Total, 9.4 8.6 - 10.3 POWERCHART S MGDL eGFR >60 >=60 POWERCHART Black/ [id number] Guyanese HXeGFR (MDRD) >60 >=60 POWERCHART [id number] Comment: Results are in mL/min/1.73m CKD Stage I: ? GFR > 90 CKD Stage II: ?GFR 60 to 89 CKD Stage III: ? GFR 30 to 59 CKD Stage IV: ? GFR 15 to 29 CKD Stage V: ?GFR < 15 or Dialysi s Specimen (Source) Anatomical Collection Method Collection Time Re ceived Time Location / / Volume Laterality Blood 03/15/2014 1:32 PM CDT Michelle Bear M.D. LAB BLOOD ADD-ON Performing Organization Address City/State/ZIP Code Phon e Number POWERCHART documented in this encounter Visit Diagnoses Not on filedocumented in this encounter Additional Health Concerns Assessment Noted Time PHQ-9 Depression Total Score: 11 03/14/2014 8:25 AM CD T documented as of this encounter
--- OUTSIDE RECORDS SUMMARY | 2022-06-29 09:33 | XMS_ITS | Encounter Summary ---
:1985 Author Organization [facility] Address [address] [place] [address] Care Team Providers Name Role Phone Unavailable Primary Care Provider Unavailable Encounter Details Date Type Department Care Team Description 05/28/2014 Hospital Encounter HX [facility] Jalen Nesbitt, JOSEFA, C.N.P., D. N.P. [address] [place] [phone] (Wo rk) Social History Tobacco [...] How often do you attend episcopal or mormon More than 4 time s [...] Sign Reading Time Taken Comments Blood Pressure 128/76 05/28/2014 2:31 PM CDT Pulse 82 05/28/2014 2:31 PM CDT Temperature - - Respiratory Rate 16 05/28/2014 2:31 PM CDT Oxygen Saturation - - Inhaled Oxygen Concentration - - Weight - - Height 158 cm (5' 2.21) 05/28/2014 2:31 PM CDT Body Mass Index - - documented in this encounter Progress Notes Jalen Nesbitt APRN, C.N.P. - 05/28/2014 2:27 PM CDT [id number] CHIEF COMPLAINT/REASON FOR VISIT Cough and cold symptoms. HISTORY OF PRESENT ILLNESS Carol is a 28-year-old female who has had cold and cough symptoms for the past week and a half, butprogressively seemed to be getting worse. She does have green production of phlegm. She denies any particular headaches. She states that she feels run down, somewhat feverish at times. She states progressively her cough is getting worse and causing her a bit more of shortness of breath. MEDICATIONS New reconciled medication is Zithromax Z-Kirit and Tessalon Perles as directed. ALLERGIES Please see the EMR for those details. She is allergic to penicillin. SYSTEMS REVIEW As noted above. Patient denies any facial pain or teeth pain. Her cough seems to be a little bit worse when she lays down at night. Feels very run down. PAST MEDICAL/SURGICAL HISTORY Please see the EMR. VITAL SIGNS Please see the EMR for details. Her temperature is 36. PHYSICAL EXAMINATION GENERAL: Patient appears nondistressed. SKIN: Well hydrated. HEENT: Head is normocephalic. She does not have any sinus tenderness to palpation. VESSELS: Carotids with normal upstrokes. HEART: With a regular rate and rhythm. She has normal S1, S2. No murmurs or gallops. LUNGS: Actually show scattered rhonchi and decreased in the right lower lobe which is somewhat concerning. I am unable to appreciate any crackles but does have the rhonchi and no particular wheezing isnoted. IMPRESSION/REPORT/PLAN 1. Bronchiolitis. 2. Tobacco use. PLAN: Patient was advised for smoking cessation. Given her symptoms and her progression of her symptoms, did place her on a Zithromax Z-Kirit as well as Tessalon Perles to be used as directed. Patient will report if no improvement or any worsening symptoms. Ready to learn. No apparent learning barriers were identified. Learning preferences include listening. Explained diagnosis and treatment plan. Patient/Child/Caregiver expressed understanding of the content. Maye Pino/robb Electronically Signed By: JALEN NESBITT RN, SIZING END BANDER On: 05/30/2014 08:27 AM Source: [facility] MHSDOLBEYNONRADSYS Document Id: [id number] documented in this encounter Miscellaneous Notes Miscellaneous - Jude Cardona L.P.N. - 05/28/2014 2:31 PM CDT Adult Broadcast Field Supervisor Intake/History Adult Broadcast Field Supervisor Intake/History Entered On: 05/28/2014 14:32 CDT Performed On: 05/28/2014 14:31 CDT by JUDE CARDONA LPN Intake Chief Complaint : Cough Temperature Core : 36 DegC(Converted to: 96.8 DegF) (LOW) Peripheral Pulse Rate : 82 /min Respiratory Rate : 16 /min Heart Rhythm : Regular Systolic Blood Pressure : 128 mmHg Diastolic Blood Pressure : 76 mmHg NIBP Mean : 93 mmHg BP Location : Right upper extremity Blood Pressure Cuff Size : Large SpO2 : 98 % Oxygen Therapy : Room air Height : 158 cm(Converted to: 5 ft 2 inch(es), 62 inch(es)) JUDE CARDONA LPN - 05/28/2014 14:31 CDT General Info Languages : [place] Is Patient Female and 13-50 no hysterectomy : Yes Status : Patient denies Are you ? : No JUDE CARDONA LPN - 05/28/2014 14:31 CDT Subjective Pain Symptoms : No JUDE CARDONA LPN - 05/28/2014 14:31 CDT Dependent Habits Tobacco Use/Currently Using : Yes Exposure to Tobacco Smoke : Patient smokes Smoking Status : Current every day smoker JUDE CARDONA LPN - 05/28/2014 14:31 CDT Tobacco Use Grid Type : Cigarettes Cigarette Use Packs/Day : 0.5 Last Use : 04/30/2014 JUDE CARDONA LPN - 05/28/2014 14:31 CDT Caffeine Use Grid Caffeine Use : Current Type : Coffee, Soft drinks Frequency : Daily JUDE CARDONA LPN - 05/28/2014 14:31 CDT Recreational Drug Use Grid Drug Use : None JUDE CARDONA LPN - 05/28/2014 14:31 CDT Source: [employer] Document Id: [id number] CDT!39 documented in this encounter Plan of Treatment Scheduled Procedures Name Priority Associated Diagnoses Date/Time COLONOSCOPY Diarrhea documented as of this encounter Visit Diagnoses Not on filedocumented in this encounter Additional Health Concerns Assessment Noted Time PHQ-9 Depression Total Score: 18 05/02/2014 9:45 AM CD T documented as of this encounter
--- OUTSIDE RECORDS SUMMARY | 2022-06-29 09:33 | XMS_ITS | Encounter Summary ---
:1985 Author Organization [facility] Address [address] [place] [address] Care Team Providers Name Role Phone Unavailable Primary Care Provider Unavailable Encounter Details Date Type Department Care Team Description 08/02/2013 Hospital Encounter HX NO MAPPING Berny Garcia M.D. [address] [place], [place] [phone] (Wo rk) Social History [...] How often do you attend muslim or worship More than 4 time s per year [...]
--- OUTSIDE RECORDS SUMMARY | 2022-06-29 09:33 | XMS_ITS | Encounter Summary ---
:1985 Author Organization [facility] Address [address] [place] [address] Care Team Providers Name Role Phone Unavailable Primary Care Provider Unavailable Encounter Details Date Type Department Care Team Description 07/31/2014 Hospital Encounter HX [facility] Pavel BELTRAN Obi, M.D. [address] [place] [address] (Wo rk) Social History Tobacco Use Types [...] How often do you attend orthodox or confucianism More than 4 time s [...] Sign Reading Time Taken Comments Blood Pressure 154/92 07/31/2014 10:14 AM DISTRIBUTION ESTIMATOR Pulse - - Temperature - - Respiratory Rate - - Oxygen Saturation - - Inhaled Oxygen Concentration - - Weight 143 kg (315 lb 11.2 oz) 07/31/2014 10:14 AM DISTRIBUTION ESTIMATOR Height 158 cm (5' 2.21) 07/31/2014 10:14 AM DISTRIBUTION ESTIMATOR Body Mass Index 57.36 07/31/2014 10:14 AM DISTRIBUTION ESTIMATOR documented in this encounter Procedure Notes Berny Chau M.D. - 07/31/2014 10:29 AM CST IUD REMOVAL IUD REMOVAL This patient is a 28 year old presenting for IUD removal. Pt has used mirena for a little over 1 yr and wants it removed because she is planning a . She has no complaints today. History: MEDICAL Obesity SURGICAL C FULL ROUT OBSTE CARE,VAGINAL DELIV - 01/03/08 - baby boy: 01/03/08 MEDICATIONS ibuprofen: See Instructions,3-4 tabs prn levonorgestrel: See Instructions,placed 02/06/08 ALLERGIES penicillins SOCIAL Date Time: 07/31/2014 10:14 Tobacco: Smoking Status: Current some day smoker Exposure: Patient smokes Alcohol: Use: No Results Found Recreational Drugs: Use: None Type: No Results Found FAMILY Mother: Hypothyroidism Father: Myocardial infarction Sister: Cystic fibrosis Grandmother (paternal, ): [place] - Lung cancer Grandfather (maternal): Cancer Grandmother (maternal): Cancer Review of Systems: Negative unless otherwise noted. REPRODUCTIVE: no menstrual abnormalities, no abnormal vaginal bleeding, no vaginal discharge or pelvic pain Physical Exam: No qualifying data available. BLOOD PRESSURE Systolic Blood Pressure: 154 mmHg High Diastolic Blood Pressure: 92 mmHg Critical MEASUREMENTS Height: 158 cm Actual Weight: 143.2 kg Body Mass Index: 57.36 kg/m2 Well nourished, well developed female in NAD. EXAM. Vagina. No lesions or abnormal discharge Cervix. No lesions. IUD string visualized and grasped with a long doug forceps. Pt tolerated procedure well. Assessment and Plan: Uncomplicated IUD removal. Electronically Signed By: BERNY CHAU MD On: 07/31/2014 10:33 AM Source: [facility] POWERCHART Document Id: [id number] RIBUTION ESTIMATOR documented in this encounter Miscellaneous Notes Miscellaneous - Alison Monsivais L.P.N. - 07/31/2014 10:14 AM CST Adult Photoresist Printer Intake/History Adult Photoresist Printer Intake/History Entered On: 07/31/2014 10:16 DISTRIBUTION ESTIMATOR Performed On: 07/31/2014 10:14 DISTRIBUTION ESTIMATOR by ALISON MONSIVAIS LPN Intake Chief Complaint : IUD removal LMP Date : iud Systolic Blood Pressure : 154 mmHg (HI) Diastolic Blood Pressure : 92 mmHg (>HHI) NIBP Mean : 113 mmHg Height : 158 cm(Converted to: 5 ft 2 inch(es), 62 inch(es)) Actual Weight : 143.2 kg(Converted to: 315 lb 11 oz) Dosing Weight Clinic : 143.2 kg Clinic BSA : 2.51 Body Mass Index : 57.36 kg/m2 ALISON MONSIVAIS LPN - 07/31/2014 10:14 DISTRIBUTION ESTIMATOR General Info Information Given By : Patient Languages : Czech Is Patient Female and 13-50 no hysterectomy : Yes Status : Patient denies Are you ? : No ALISON MONSIVAIS LPN - 07/31/2014 10:14 DISTRIBUTION ESTIMATOR Subjective Pain Symptoms : No ALISON MONSIVAIS LPN - 07/31/2014 10:14 DISTRIBUTION ESTIMATOR Dependent Habits Tobacco Use/Currently Using : Yes Tobacco Use/Advised to Quit : Yes Exposure to Tobacco Smoke : Patient smokes Smoking Status : Current some day smoker ALISON MONSIVAIS LPN - 07/31/2014 10:14 DISTRIBUTION ESTIMATOR Tobacco Use Grid Type : Cigarettes Cigarette Use Packs/Day : 0.5 Last Use : 04/30/2014 ALISON MONSIVAIS LPN - 07/31/2014 10:14 DISTRIBUTION ESTIMATOR Caffeine Use Grid Caffeine Use : Current Type : Coffee, Soft drinks Frequency : Daily ALISON MONSIVAIS LPN - 07/31/2014 10:14 DISTRIBUTION ESTIMATOR Recreational Drug Use Grid Drug Use : None ALISON MONSIVAIS LPN - 07/31/2014 10:14 DISTRIBUTION ESTIMATOR ID Screen Travel Within Last 21 Days : No ALISON MONSIVAIS LPN - 07/31/2014 10:14 DISTRIBUTION ESTIMATOR Source: [facility] POWERCHART Document Id: [id number] DISTRIBUTION ESTIMATOR!40 RIBUTION ESTIMATOR documented in this encounter Plan of Treatment Scheduled Procedures Name Priority Associated Diagnoses Date/Time COLONOSCOPY Diarrhea documented as of this encounter Visit Diagnoses Not on filedocumented in this encounter Additional Health Concerns Assessment Noted Time PHQ-9 Depression Total Score: 18 05/02/2014 9:45 AM CD T documented as of this encounter
--- OUTSIDE RECORDS SUMMARY | 2022-06-29 09:34 | XMS_ITS | Encounter Summary ---
:1985 Author Organization [facility] Address [address] [place] [address] Care Team Providers Name Role Phone Unavailable Primary Care Provider Unavailable Encounter Details Date Type Department Care Team Description 01/06/2012 Hospital Encounter HX [facility] Kaye Magallanes, Ph.D., L.P. Social History Tobacco Use Types Packs/Day Years [...] How often do you attend druze or orthodoxy More than 4 time s [...]
--- OUTSIDE RECORDS SUMMARY | 2022-06-29 09:34 | XMS_ITS | Encounter Summary ---
:1985 Author Organization [facility] Address [address] [place] [address] Care Team Providers Name Role Phone Unavailable Primary Care Provider Unavailable Encounter Details Date Type Department Care Team Description 04/27/2012 Hospital Encounter HX [facility] [...] How often do you attend samaritan or congregation More than 4 time s [...]
--- OUTSIDE RECORDS SUMMARY | 2022-06-29 09:34 | XMS_ITS | Encounter Summary ---
:1985 Author Organization [facility] Address [address] [place] [address] Care Team Providers Name Role Phone Unavailable Primary Care Provider Unavailable Encounter Details Date Type Department Care Team Description 03/24/2012 Hospital Encounter [facility] [address] [place] [phone] (Wo rk) Social History Tobacco Use [...] How often do you attend alevism or adventist More than 4 time s [...] Sign Reading Time Taken Comments Blood Pressure 112/68 03/24/2012 11:23 AM CDT Pulse 91 03/24/2012 11:23 AM CDT Temperature - - Respiratory Rate 18 03/24/2012 11:23 AM CDT Oxygen Saturation - - Inhaled Oxygen Concentration - - Weight 122 kg (269 lb 10 oz) 03/24/2012 11:23 AM CDT Height 158 cm (5' 2.21) 03/24/2012 11:23 AM CDT Body Mass Index 48.99 03/24/2012 11:23 AM CDT documented in this encounter H&P Notes Leonora Farias M.D. - 03/24/2012 12:00 AM CDT [id number] CHIEF COMPLAINT/REASON FOR VISIT Urinary frequency. HISTORY OF PRESENT ILLNESS Puneet is a 26-year-old female who states that yesterday she developed some lower abdominal pain, urinary frequency, and dysuria when she has urgency, and some nausea last night. She has not had any fevers or back pain. She also notes that she stopped taking her propranolol because it was not helping her headaches, buther headaches seem to have decreased in frequency, but they are still an annoyance and interfere with her life. CURRENT MEDICATIONS Reconciled. New medicine today is Ciprofloxacin 250 mg by mouth twice daily x5 days and propranolol 80 mg tablets by mouth daily. ALLERGIES Penicillin. SYSTEMS REVIEW As per history of present illness. VITAL SIGNS Temperature 36.1. Pulse is 91 beats per minute. Respiratory rate 18 breaths per minute. Blood pressure is 112/68. Oxygen saturation is 98% on room air. Height is 158 cm. Weight is 122.3 kg. BMI is 48.99. PHYSICAL EXAMINATION GENERAL: The patient is alert and oriented in no acute distress. CARDIOVASCULAR: Regular rate rhythm. Normal S1, S2. No murmurs, rubs, or gallops. LUNGS: Clear to auscultation bilaterally. BACK: No costovertebral angle tenderness. ABDOMEN: Soft. The patient does have some lower abdominal pain. There is no rebound or guarding. Normoactive bowel sounds. LABORATORY Urinalysis - the patient had positive nitrates and 1+ leukocyte esterase. She had 10-25 white blood cells, 0 red blood cells and many epithelial cells. IMPRESSION/REPORT/PLAN 1. Urinary tract infection. The patient will be treated with Ciprofloxacin 250 mg by mouth twice daily x5 days. We discussed that we will obtain a culture at this point, but if her symptoms do not resolve we will get one. 2. Migraine. We discussed that the dose of propranolol she was on can be increased and hopefully provide more relief from her headache. He is interested in trying this so we will go up to 80 mg three tablets daily. We discussed that it will take 3-4 weeks for this medicine to reach its full effect, and if necessary we can still increase it once more. The patient will let us know how things go. Patient Education Ready to learn No apparent learning barriers were identified Learning preferences include listening Explained diagnosis and treatment plan Patient/Child/Caregiver expressed understanding of the content Leonora Brito M.D./[facility] Electronically Signed By: LEONORA NATHAN MD On: 04/05/2012 10:30 AM Modified by and Electronically Signed by: LEONORA NATHAN MD On: 04/05/2012 10:29 AM Source: [facility] MHSDOLBEYNONRADSYS Document Id: [id number] documented in this encounter Miscellaneous Notes Miscellaneous - Leonora Farias M.D. - 03/24/2012 11:41 AM CDT Ambulatory Patient Summary [id number] [place] [address] Visit Information Name: PUNEET FRIED Current Date: 03/24/2012 11:41:54 Physicians Attending Provider: LEONORA NATHAN MD Primary Care Provider: LEONORA NATHAN MD Your Medications Here is a list of your medications. It is important to take your medications as directed. Use a pillbox or chart to help remind you to take your medications. Please let your doctor or nurse know if you have problems taking your medications. Medication/Strength Dose Route Frequency Indications/Special Instructions/Comments ciprofloxacin (ciprofloxacin 250 mg oral tablet) 250 mg Oral two times a day for 5 Days propranolol (Inderal LA 80 mg oral capsule, extended release) 160 mg Oral once a day Attention: If you have any medications at home that are not on this list, DO NOT take them until youcontact your provider for clarification. Your Allergies & Intolerances Substance Reaction Symptoms Category Comments penicillins Drug Your Problem List Problem Status Onset Comments Active 08/23/2007 Headache Migraine Active 01/21/2012 Your Upcoming Appointments Date Time Location Reason Provider No Appointments found Your Goals/Additional instructions: Source: [facility] POWERCHART Document Id: [id number] Leonora Russell M.D. - 03/24/2012 11:41 AM CDT Ambulatory Depart Summary [address] [address] Visit Information Name: PUNEET FRIED Visit Date: 03/24/2012 11:41:53 Attending Provider: LEONORA NATHAN MD Primary Care Provider: LEONORA NATHAN MD PUNEET FRIED has been given the following list of medications: Your Medications It is important to take your medications as directed. Use a pill box or chart to help remind you to take your medications. Please let your doctor or nurse know if you have problems taking your medications. Medication/Strength Dose Route Frequency Indications/Special Instructions/Comments ciprofloxacin (ciprofloxacin 250 mg oral tablet) 250 mg Oral two times a day for 5 Days propranolol (Inderal LA 80 mg oral capsule, extended release) 160 mg Oral once a day Attention: If you have any medications at home that are not on this list, DO NOT take them until youcontact your provider for clarification. Additional Information: Source: [facility] DinnrCHART Document Id: [id number] Mimi Gaines L.P.N. 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 Entered On: 03/24/2012 11:30 CDT Performed On: 03/24/2012 11:23 CDT by MIMI HERRERA LPN, RT Intake Chief Complaint : concerned about frequency with urination and lower abdomen discomfort since yesterday Temperature Core : 36.1C(Converted to: 97.0DegF) (LOW) Peripheral Pulse Rate : 91/min Respiratory Rate : 18/min Heart Rhythm : Regular Systolic Blood Pressure : 112mmHg Diastolic Blood Pressure : 68mmHg NIBP Mean : 83mmHg BP Location : Left upper extremity Blood Pressure Cuff Size : Large SpO2 : 98% Height : 158cm(Converted to: 5ft 2inch(es), 62.20inch(es)) Actual Weight : 122.3kg(Converted to: 269lb 10oz) Weight Source : Standing scale Dosing Weight Clinic : 122.30kg Clinic BSA : 2.32 Body Mass Index : 48.99kg/m2 MIMI HERRERA LPN, - 03/24/2012 11:23 CDT General Info Information Given By : Patient Preferred Communication Mode : Verbal Languages : Icelandic MIMI HERRERA LPN, RT - 03/24/2012 11:23 CDT Subjective Pain Symptoms : Yes MIMI HERRERA LPN, 03/24/2012 11:23 CDT Pain Pain Assessment Grid Pain 1 Location : Abdomen Laterality : Bilateral Time Pattern : Intermittent Quality : Aching Associated Symptoms : Nausea Interventions : MD notified MIMI HERRERA LPN, RT - 03/24/2012 11:23 CDT Dependent Habits Tobacco Use/Currently Using : Yes Smoking Status : Current every day smoker MIMI HERRERA LPN, RT 03/24/2012 11:23 CDT Tobacco Use Grid Type : Cigarettes Cigarette Use Packs/Day : 0.5 MIMI HERRERA LPN, 03/24/2012 11:23 CDT Caffeine Use Grid Caffeine Use : Current Type : Coffee, Soft drinks Frequency : Daily MIMI HERRERA LPN, 03/24/2012 11:23 CDT Recreational Drug Use Grid Drug Use : None MIMI HERRERA LPN, RT 03/24/2012 11:23 CDT Allergy Allergies (Active) penicillins Estimated Onset Date: Unspecified ; Created By: GLEN ACOSTA; Reaction Status: Active ;Category: Drug ; Substance: penicillins ; Type: Allergy ; Updated By: GLEN ACOSTA; Reviewed Date: 01/21/2012 9:28 CDT Source: [facility] POWERCHART Document Id: [id number] documented in this encounter Plan of Treatment Scheduled Procedures Name Priority Associated Diagnoses Date/Time COLONOSCOPY Diarrhea documented as of this encounter Procedures Procedure Name Priority Date/Time Associated Comments Diagnosis URINALYSIS, ROUTINE Routine 03/24/2012 11:34 AM R esults for this CDT procedure are i n the results section. URINE MICROSCOPIC Routine 03/24/2012 11:34 AM Res ults for this CDT procedure are i n the results section. documented in this encounter Results Urine Microscopic (03/24/2012 11:34 AM CDT) [facility] Method Time Signature HXUr WBC 10-25 0 - 2 POWERCHART Red Blood Cell None Seen 0 - 2 POWERCHART Clump, Urine HXUr Bacteria Moderate POWERCHART HXUr Epithelial Many POWERCHART Comment: Squamous epis. Comment Not suitable for culture. ELANA RCHART Specimen Anatomical Collection Method Collection Time Receive d Time (Source) Location / / Volume Laterality Urine 03/24/2012 11:34 03/24/2012 AM CDT 11:34 AM CDT Leonora Flaherty M.D. LAB URINE ORDERABLES Performing Organization Address City/State/ZIP Code Phon e Number POWERCHART Urinalysis, Routine (03/24/2012 11:34 AM CDT) [facility] Method Time Signature HXUr Color Yellow POWERCHART Appearance Slightly POWERCHART Cloudy Glucose Negative POWERCHART HXBILIRUBIN Negative POWERCHART Ketones, QL(U) Negative POWERCHART Specific 1.025 1.000 - POWERCHART [place], POCT, U 1.030 pH, POCT, Urine 5.5 5.0 - 8.0 POWERCHART Protein, Ur, Dip Negative POWERCHART Urobilinogen 0.2 POWERCHART HXNITRITE Positive POWERCHART HXBLOOD Trace-lysed POWERCHART Leukocyte 1+ POWERCHART Esterase Source Clean Void POWERCHART Urine Specimen (Source) Anatomical Collection Method Collection Time Re ceived Time Location / / Volume Laterality Urine 03/24/2012 11:34 AM CDT eLonora Flaherty M.D. LAB URINE ORDERABLES Performing Organization Address City/State/ZIP Code Phon e Number POWERCHART documented in this encounter Visit Diagnoses Not on filedocumented in this encounter
--- OUTSIDE RECORDS SUMMARY | 2022-06-29 09:34 | XMS_ITS | Encounter Summary ---
:1985 Author Organization [facility] Address [address] [place] [address] Care Team Providers Name Role Phone Unavailable Primary Care Provider Unavailable Encounter Details Date Type Department Care Team Description 04/07/2013 Hospital Encounter [facility] Ysabel Reyes R.NBrittaney [address] [phone] Social History Tobacco Use Types [...] How often do you attend episcopal or mandaeism More than 4 time s [...] this encounter Miscellaneous Notes Telephone Encounter - Ailyn Reyes R.N. - 04/07/2013 12:00 AM CDT [id number] Bug bite on Wednesday when she was in [place]. Pt stated bug was a flying not likely a spider . 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 Some redness and pain. Benadryl and ibuprofen and icing is not helping symptoms. No fever or flu like symptoms. Nurse advised per pt if possible to come to UC today. Informed pt of potential problems such as infection/allergic rxn , or stinger still present. NO sob, tongue or throat symptoms. She is working until 10 pm and not sure she can do this. Nurse informed pt if she worsens with swelling , redness, warmth, red line presents, worsening pain(7-10 on 0 to 10 scale). , increased redness, fever or flu like symptoms she needs to come to UC/er. If symptoms remain the same she should at the very least come to UC at 9:00 am tomorrowAm for insect bite. Pt verbalized understanding of the above instructions and is in agreement with this plan. Pt will come to Er if any throat, tongue or sob symptoms present. Home mgt instructions also given per protocol. Pt meds reviewed. Allergies reviewed and problem list reviewed. Source: [facility] RWHXTRANSXRTFSYS Document Id: [id number] documented in this encounter Plan of Treatment Scheduled Procedures Name Priority Associated Diagnoses Date/Time COLONOSCOPY Diarrhea documented as of this encounter Visit Diagnoses Not on filedocumented in this encounter
--- OUTSIDE RECORDS SUMMARY | 2022-06-29 09:34 | XMS_ITS | Encounter Summary ---
:1985 Author Organization [facility] Address [address] [place] [address] Care Team Providers Name Role Phone Unavailable Primary Care Provider Unavailable Encounter Details Date Type Department Care Team Description 04/05/2012 Hospital Encounter HX [facility] Gildardo Marvin M.D. [address] [place] [phone] (Wo rk) Social History Tobacco Use [...] How often do you attend lutheran or anglican More than 4 time s [...] Sign Reading Time Taken Comments Blood Pressure 110/64 04/05/2012 8:07 AM CDT Pulse 68 04/05/2012 8:07 AM CDT Temperature - - Respiratory Rate 16 04/05/2012 8:07 AM CDT Oxygen Saturation - - Inhaled Oxygen Concentration - - Weight - - Height - - Body Mass Index - - documented in this encounter H&P Notes Vinicio Marvin M.D. - 04/05/2012 7:55 AM CDT [id number] IMPRESSION/REPORT/PLAN 1) Bronchitis with bacterial sinusitis with associated wheezing. 2) Tobacco abuse, as well. Counseled 15 per 25-minute session today regarding the obvious advantages for her to stop smoking and offered her remedies such as Chantix and/or Bupropion. Prescribed finally Levaquin and Flonase for her to use. Considered Robitussin with Codeine, offered this. If she is not better in a couple days she will re- contact us if she's not making progress at that point. CHIEF COMPLAINT/REASON FOR VISIT Upper respiratory tract infection times four days, characterized by a cough that is productive of thick phlegm. HISTORY OF PRESENT ILLNESS She is very fatigued. Tragically, she is a tobacco smoker and she feels wheezy and tight. She is [age] years of age. No nausea. Denies visual change. SYSTEM REVIEW Review of Systems, negative for rash or arthralgias or otorrhea. SOCIAL PROFILE She is employed. No substance abuse history except for cigarettes. VITAL SIGNS Temperature: 35.6-degrees Centigrade. Heart rate: 68 beats per minute. Respiratory rate: 16 respirations per minute. Blood pressure: 110/64. PHYSICAL EXAM TYMPANIC MEMBRANES: Appear to be normal. NARES: Swollen nasal passages with thick colored mucous within her nostrils evident. TONSILS: Are not enlarged. LYMPH: Tender submandibular adenopathy. BREATH SOUNDS: Bronchitic breath sounds bilaterally. Hoarse voice. CARDIAC: Regular. SKIN: No rashes. Vinicio Marvin M.D./maggie Electronically Signed By: VINICIO MARVIN MD On: 04/06/2012 11:36 AM Source: [facility] MHSDOLBEYNONRADSYS Document Id: [id number] documented in this encounter Miscellaneous Notes Miscellaneous - Dung Noonan R.N. - 04/30/2014 3:53 PM CDT bee sting, ER From: DUNG NOONAN RN Sent: 04/30/2014 15:53:29 CDT Subject: bee sting, ER Pt has no PCP here, calls with bee sting on wrist yesterday getting worse, hand warm and red, swollen from fingers up wrist, breathing fine she reports. ER advised and notified. Source: [facility] POWERCHART Document Id: [id number] Miscellaneous - Vinicio Marvin M.D. - 04/05/2012 9:05 AM CDT Ambulatory Patient Summary [place] [address] [id number] Visit Information Name: PUNEET FRIED Current Date: 04/05/2012 09:05:21 Physicians Attending Provider: VINICIO MARVIN MD Primary Care Provider: PCP, ELSEWHERE Your Medications Here is a list of your medications. It is important to take your medications as directed. Use a pillbox or chart to help remind you to take your medications. Please let your doctor or nurse know if you have problems taking your medications. Medication/Strength Dose Route Frequency Indications/Special Instructions/Comments codeine-guaifenesin (Cheratussin AC 10 mg-100 mg/5 mL oral syrup) 10 mL Oral every 4 hours as neededfor cough fluticasone nasal (Flonase 50 mcg/inh nasal spray) 2 spray(s) Nasal two times a day levofloxacin (Levaquin 500 mg oral tablet) 500 mg Oral once a day for 10 Days propranolol (Inderal LA 80 mg oral [...] Source: [facility] POWERCHART Document Id: [id number] Leilani - Vinicio Marvin M.D. - 04/05/2012 9:05 AM CDT Ambulatory Depart Summary [address] [address] Visit Information Name: PUNEET FRIED Visit Date: 04/05/2012 09:05:20 Attending Provider: VINICIO MARVIN MD Primary Care Provider: PCP, [place] PUNEET FRIED has been given the following list of medications: Your Medications It is important to take your medications as directed. Use a pill box or chart to help remind you to take your medications. Please let your doctor or nurse know if you have problems taking your medications. Medication/Strength Dose Route Frequency Indications/Special Instructions/Comments codeine-guaifenesin (Cheratussin AC 10 mg-100 mg/5 mL oral syrup) 10 mL Oral every 4 hours as neededfor cough fluticasone nasal (Flonase 50 mcg/inh nasal spray) 2 spray(s) Nasal two times a day levofloxacin (Levaquin 500 mg oral tablet) 500 mg Oral once a day for 10 Days propranolol (Inderal LA 80 mg oral capsule, extended release) 160 mg Oral once a day Attention: If you have any medications at home that are not on this list, DO NOT take them until youcontact your provider for clarification. Additional Information: Source: [facility] POWERCHART Document Id: [id number] Leilani - Roosevelt Rodriges L.P.N. 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 Entered On: 04/05/2012 8:11 CDT Performed On: 04/05/2012 8:07 CDT by ROOSEVELT RODRIGES LPN Intake Chief Complaint : uri since Wednesday Onset of Symptoms : 4 days Temperature Core : 35.6C(Converted to: 96.1DegF) (LOW) Peripheral Pulse Rate : 68/min Respiratory Rate : 16/min Heart Rhythm : Regular Systolic Blood Pressure : 110mmHg Diastolic Blood Pressure : 64mmHg NIBP Mean : 79mmHg BP Location : Right upper extremity Blood Pressure Cuff Size : Large Weight Source : Other: refused ROOSEVELT RODRIGES LPN - 04/05/2012 8:07 CDT Subjective Pain Symptoms : Yes ROOSVEELT RODRIGES LPN - 04/05/2012 8:07 CDT Pain Pain Assessment Grid Pain 1 Location : Ear Laterality : Bilateral Intensity : 2 ROOSEVELT RODRIGES LPN - 04/05/2012 8:07 CDT Dependent Habits Tobacco Use/Currently Using : Yes Tobacco Use/Advised to Quit : Yes Exposure to Tobacco Smoke : Patient smokes Smoking Status : Current every day smoker ROOSEVELT RODRIGES LPN - 04/05/2012 8:07 CDT Tobacco Use Grid Type : Cigarettes Cigarette Use Packs/Day : 0.5 ROOSEVELT RODRIGES LPN - 04/05/2012 8:07 CDT Caffeine Use Grid Caffeine Use : Current Type : Coffee, Soft drinks Frequency : Daily ROOSEVELT RODRIGES LPN - 04/05/2012 8:07 CDT Recreational Drug Use Grid Drug Use : None ROOSEVELT RODRIGES LPN - 04/05/2012 8:07 CDT Allergy Allergies (Active) penicillins Estimated Onset Date: Unspecified ; Created By: GLEN ACOSTA; Reaction Status: Active ;Category: Drug ; Substance: penicillins ; Type: Allergy ; Updated By: GLEN ACOSTA; Reviewed Date: 03/24/2012 11:30 CDT [facility] POWER[facility] Document Id: [id number] documented in this encounter Plan of Treatment Scheduled Procedures Name Priority Associated Diagnoses Date/Time COLONOSCOPY Diarrhea documented as of this encounter Visit Diagnoses Not on filedocumented in this encounter
--- OUTSIDE RECORDS SUMMARY | 2022-06-29 09:34 | XMS_ITS | Encounter Summary ---
:1985 Author Organization [facility] Address [address] [place] [address] Care Team Providers Name Role Phone Unavailable Primary Care Provider Unavailable Encounter Details Date Type Department Care Team Description 04/15/2012 Hospital Encounter [facility]X [facility] [...] How often do you attend muslim or pentecostalism More than 4 time s [...] of this encounter Miscellaneous Notes Miscellaneous - Kaye Magallanes, Ph.D. - 04/15/2012 12:00 AM CDT [id number] LETTER Carol Dowell Juarez [address] [place] [phone] April 15, 2012 Dear Carol: Our records indicate that you recently cancelled your appointment with Kaye Magallanes, Ph.D., L.P.. Thank you for notifying our office. It is the policy of this office to charge a cancellation fee for appointments cancelled without 24 hours notification. Your next scheduled appointment is: Friday, April 27, 2012 at 11:00 AM If you are unable to keep this appointment, please call the [facility] [place] [facility] as soon as possible at or toll-free to reschedule or cancel. We look forward to hearing from you. Thank you, [facility] [place] Source: [facility] RWHXTRANSXRTFSYS Document Id: [id number] documented in this encounter Plan of Treatment Scheduled Procedures Name Priority Associated Diagnoses Date/Time COLONOSCOPY Diarrhea documented as of this encounter Visit Diagnoses Not on filedocumented in this encounter
--- OUTSIDE RECORDS SUMMARY | 2022-06-29 09:34 | XMS_ITS | Encounter Summary ---
:[address] [facility] Address [address] [place] [address] Care Team Providers Name Role Phone Unavailable Primary Care Provider Unavailable Encounter Details Date Type Department Care Team Description 11/15/2012 Hospital Encounter [facility]X [facility] [...] How often do you attend druze or anabaptism More than 4 time s per year [...] Notes Miscellaneous - Kaye Magallanes, Ph.D. - 11/15/2012 12:00 AM CDT [id number] LETTER Carol Dowell Juarez [address] [place] [phone] November 15, 2012 Dear Carol: In reviewing my records, I realized that I have not seen you for sometime. I am writing, therefore, to determine if you are interested in continuing therapy and desire to schedule a new appointment. If you would like an appointment, please call our radiology receptionist at [phone] or . Ifwe do not hear from you within two weeks, we will assume that your are not interested in scheduling further appointments. I look forward to hearing from you. Sincerely, Kaye Magallanes, Ph.D., L.P. Source: [facility] Document Id: [id number] Electronically signed by Conversion, [facility] Elevator Worker [id number] at 01/18/2017 10:03 PM CDT documented in this encounter Plan of Treatment Scheduled Procedures Name Priority Associated Diagnoses Date/Time COLONOSCOPY Diarrhea documented as of this encounter Visit Diagnoses Not on filedocumented in this encounter
--- OUTSIDE RECORDS SUMMARY | 2022-06-29 09:34 | XMS_ITS | Encounter Summary ---
:1985 [address] Organization [facility] Address [address] [place] [address] Care Team Providers Name Role Phone Unavailable Primary Care Provider Unavailable Encounter Details Date Type Department Care Team Description 11/03/2012 - Hospital Encounter HX [facility] ED Stephen Toth M.D. 11/04/2012 Social History Tobacco Use Types Packs/Day Years [...] How often do you attend adventism or mormon More than 4 time s [...] Sign Reading Time Taken Comments Blood Pressure 156/84 11/03/2012 8:59 PM CDT Pulse 100 11/03/2012 8:59 PM CDT Temperature - - Respiratory Rate - - Oxygen Saturation - - Inhaled Oxygen Concentration - - Weight - - Height 158 cm (5' 2.21) 11/03/2012 8:59 PM CDT Body Mass Index - - documented in this encounter Discharge Summaries Jeaneth Rodríguez R.N. - 11/14/2012 2:53 PM CDT ED Discharge Instructions [address] [address] Name: PUNEET FRIED Date of : 1985 12:00 AM Visit Date: 11/03/2012 8:[address] [facility] Number: [id number] Address: [address] [place] [phone] Primary Care Provider: RABIA NATHAN MD IMPORTANT: [facility] in [place] would like to thank you for allowing us to assist you with your healthcare needs. The following includes patient education materials and informationregarding your injury/illness. Chief Complaint: ; Head pain; PAIN, BACK, RT SIDE OF HEAD Follow-Up Instructions: With: Address: When: Return to Emergency Department Within As Needed Comments: Return to ER if you develop severe worsening, generalized headache with fevers. With: Address: When: RABIA NATHAN [address] [place] [id number] Business (1) Within As Needed Comments: Patient Education Materials: [id number] NECK SPASM [No trauma] Spasm of the neck muscles can occur after a sudden awkward neck movement. Sleeping with your neck daniel crooked position can also cause spasm. Some persons respond to emotional stress by tensing the muscles of their neck, shoulders and upper back. If neck spasm lasts long enough, it can cause headache. The treatment described below will usually help the pain to go away in 5-7 days. Pain that continuesmay require further evaluation or other types of treatment such as physical therapy. HOME CARE: 1. Rest and relax the muscles. Use a comfortable pillow that supports the head and keeps the spine in a neutral position. The position of the head should not be tilted forward or backward. A rolled up towel may help for a custom fit. 2. Some persons find relief with heat (hot shower, hot bath or heating pad) and massage, while others prefer cold packs (crushed or cubed ice in a plastic bag, wrapped in a towel). Try both and use themethod that feels best for 20 minutes several times a day. 3. You may use acetaminophen (Tylenol) or ibuprofen (Motrin, Advil) to control pain, unless another medicine was prescribed. [NOTE: If you have chronic liver or kidney disease or ever had a stomach ulcer or GI bleeding, talk with your doctor before using these medicines.] FOLLOW UP with your doctor or this facility if your symptoms do not show signs of improvement after one week. Physical therapy or further evaluation may be needed. [NOTE: If x-rays were taken, they will be reviewed by a radiologist. You will be notified of any newfindings that may affect your care.] RETURN PROMPTLY or contact your doctor if any of the following occurs: ?? Pain becomes worse or spreads into one or both arms ?? Weakness or numbness in one or both arms ?? Increasing headache with nausea or vomiting Fever over 100.4??F (38.0??C) ?? [phone] [employer], [address] [address]. All rights reserved. This information is not intended as a substitute for professional medical care. Always follow your healthcare professional's instructions. ED Tests and Procedures: Order Status Automated Diff-5 Part Completed C-Reactive Protein Completed WBC with Auto Diff Completed Discharge Prescriptions & Home Medications: Medication/Strength Dose Route Frequency Indications/Special Instructions/Comments tramadol (tramadol 50 mg oral tablet) 50 mg Oral every 4 hours as needed for Pain tramadol (tramadol 50 mg oral tablet) 50 mg Oral every 4 hours as needed for Pain fluticasone nasal (Flonase 50 mcg/inh nasal spray) 2 spray(s) Nasal two times a day propranolol (Inderal LA 80 mg oral capsule, extended release) 160 mg Oral once a day Comment: Attention: If you have any medications at home not on this list, DO NOT take them until you contact your provider for clarification. Medication Reconciliation: Reconciliation is a process of identifying the most accurate list of all medications a patient is taking - including name, dosage, frequency, and route - and using this list to provide to the patient information about how to take those medications. PUNEET FRIED or ramoneee has reviewed the home medications you have [...] arrange a ride home with a responsible democrat. FARIHA Cornejo AMANDA KAY , or responsible democrat have received this information and my questions have been answered. I have discussed any challenges I see with this plan with the nurse or physician. Patient Signature or Responsible Republican/Relationship Date Time Provider Signature Date Time Medication [...] arrange a ride home with a responsible democrat. I, PUNEET FRIED , or responsible democrat have received this information and my questions have been answered. I have discussed any challenges I see with this plan with the nurse or physician. Patient Signature or Responsible Republican/Relationship Date Time Provider Signature Date Time This document has images extracted. Please consider using [employer] for all your patient education needs. Source: [facility] POWERCHART Document Id: [id number] Jeaneth Rodríguez R.N. - 11/14/2012 2:53 PM CDT ED Depart Summary [facility] Emergency Department Clinical Discharge Summary PERSON INFORMATION Name PUNEET FRIED Age 26 Years 1985 12:00 AM Sex Female Language Mauritian PCP RABIA NATHAN MD Marital Status Single N [id number] [id number] Reason ; Head pain; PAIN, BACK, RT SIDE OF HEAD Specialty Enc Type Emergency Med Service Emergency Medicine Referred by Track Group [facility] ED Discharge 11/04/2012 4:26 PM Tracking Id [id number] Checkout 11/04/2012 3:14 PM Checkin 11/03/2012 8:13 PM Acuity Dispo Type * Discharged to Home or Self Care Arrival 11/03/2012 8:13 PM Reg Status LOS 000 19:01 Address: [address] [place] [phone] Comment: PROVIDER INFORMATION Provider Role Provider Contact Time RUIZ KING MD ED Provider 11/04/12 15:11 RUIZ KING MD ED Provider 11/04/12 15:11 DIAGNOSIS Comment: PATIENT EDUCATION INFORMATION Instructions: NECK SPASM, No Trauma Follow up: With: Address: When: Return to Emergency Department Within As Needed Comments: Return to ER if you develop severe worsening, generalized headache with fevers. With: Address: When: RABIA VENITA [address] [place] [id number] Business (1) Within As Needed Comments: Source: [facility] [employer] Document Id: [id number] documented in this encounter Nursing Notes Rylee Romero R.N. - 11/03/2012 8:47 PM CDT ED Primary Assessment ED Primary Assessment Entered On: 11/03/2012 20:50 CDT Performed On: 11/03/2012 20:47 CDT by RYLEE ROMERO RN Reason For Visit Problems(Active) Headache Migraine Name of Problem: Headache Migraine ; Onset Date: 01/21/2012 ; Recorder: RABIA NATHAN MD; Confirmation: Confirmed ; Classification: Medical ; Code: 1231 ; Last Updated: 01/22/2012 13:57 CDT ; Life Cycle Status: Active ; Responsible Provider: RABIA NATHAN MD; Vocabulary: ICD-9-CM Name of Problem: ; Onset Date: 2007 ; Recorder: GLEN ACOSTA; Confirmation: Confirmed ; Classification: Medical ; Code: 1231 ; Contributor System: [employer]ase ; Last Updated: 01/21/2012 9:41 CDT ; Life Cycle Date: 01/12/2012 ; Life Cycle Status: Active ; Responsible Provider: GLEN ACOSTA; Vocabulary: ICD-9-CM Diagnoses(Active) Head pain Date: 11/03/2012 ; Diagnosis Type: Reason For Visit ; Confirmation: Complaint of ; Clinical Dx: Head pain ; Classification: Medical ; Clinical Service: Emergency medicine ; Code: PNED ; Probability: 0 ; Diagnosis Code: [id number] Triage Chief Complaint Description : see notes Information Given By : Patient Accompanied By : Friend Mode of Arrival ED : Private vehicle Track : Medical Languages : Mauritian RYLEE ROMERO RN - 11/03/2012 20:47 CDT Pain Assessment Pain Symptoms : Yes Pain Medication Requested : No RYLEE ROMERO RN - 11/03/2012 20:47 CDT Allergy Allergies (Active) penicillins Estimated Onset Date: Unspecified ; Created By: GLEN ACOSTA; Reaction Status: Active ;Category: Drug ; Substance: penicillins ; Type: Allergy ; Updated By: GLEN ACOSTA; Reviewed Date: 04/05/2012 8:11 CDT Immunizations Last Tetanus : < 5 years Influenza : None RYLEE ROMERO RN 11/03/2012 20:47 CDT Respiratory Airway : Patent Respirations : Unlabored Respiratory Pattern : Regular Respiratory Detailed Assessment : Yes RYLEE ROMERO RN - 11/03/2012 20:47 CDT Resp Detailed Breath Sounds Assessment Grid BUL : Clear BLL : Clear RYLEE ROMERO RN - 11/03/2012 20:47 CDT Cardiovascular Heart Rhythm : Regular Skin Color : Normal for ethnicity Skin Temperature : Warm RYLEE ROMERO RN 11/03/2012 20:47 CDT Neurological Last Well Time Known : Yes Last Known Well Time : 11/02/2012 8:00 CDT Level of Consciousness : Alert Orientation : Oriented x 3 Characteristics of Speech : Appropriate for age Loss of Consciousness : No Neuro Detailed Assessment : Yes RYLEE ROMERO RN 11/03/2012 20:47 CDT Neuro Detailed MAURY : Yes Facial Symmetry : Normal Extremity Movement : Equal RYLEE ROMERO RN 11/03/2012 20:47 CDT ED Psychosocial Affect/Behavior : Calm Domestic Abuse Concerns : None RYLEE ROMERO RN - 11/03/2012 20:47 CDT Gastrointestinal Nutrition ED : Adequate RYLEE ROMERO RN 11/03/2012 20:47 CDT Musculoskeletal Fall Prevention Education Provided : Yes RYLEE ROMERO RN 11/03/2012 20:47 CDT Social Habits Tobacco Use/Currently Using : Yes Exposure to Tobacco Smoke : Patient smokes Smoking Status : Current every day smoker RYLEE ROMERO RN 11/03/2012 20:47 CDT Tobacco Use Grid Type : Cigarettes Cigarette Use Packs/Day : 0.5 RYLEE ROMERO RN - 11/03/2012 20:47 CDT Alcohol Use Grid Alcohol Use : Yes RYLEE ROMERO RN 11/03/2012 20:47 CDT Recreational Drug Use Grid Drug Use : None RYLEE ROMERO RN - 11/03/2012 20:47 CDT Source: [facility] [employer] Document Id: [id number] documented in this encounter ED Notes Stephen Toth M.D. - 11/03/2012 9:08 PM CDT Head pain Patient: PUNEET FRIED Age: 26 years Sex: Female : 1985 Author: STEPHEN TOTH MD Attachments: None Basic Information Additional information: Chief Complaint from Nursing Triage Note : Chief Complaint Description. 11/03/2012 20:47 CDT Chief Complaint Description see notes 11/03/2012 20:44 CDT Chief Complaint Description 26 year old female admits with compalints of right sided ocipital pain x24 hrs. Pt states she has been exposed to menigitis on Wednesday History of Present Illness Patient is a 26 YO female who presents with concerns over right neck and right posterior head pain. This started yesterday at 9:30 AM. She says she does not have a headache, but that she gets sharp, shooting pain in her posterior right neck and head when she tries turning her head to the right. She has some pain at baseline, but much worse with trying to move her head. She has not had any vision changes, behavior changes or significant mental status changes. She has not had any fevers. She is concerned that she was exposed to a person with meningitis. She does not know what kind of meningitis it was. She said she was at the person's house for about an hour. She reports some transient dizziness andnausea today, but these have resolved. She has no other symptoms. Review of Systems Additional review of systems information: All other systems reviewed and otherwise negative. Health Status Allergies: . Allergic Reactions (All) Severity Not Documented Penicillins- No reactions were documented. Past Medical/ Family/ Social History Medical history: . No active or resolved past medical history items have been selected or recorded. Surgical history: . None ([id number]). Family history: . No family history items have been selected or recorded. Physical Examination Vital Signs Vital Signs. 11/03/2012 20:59 CDT Temperature Core 37 C Peripheral Pulse Rate 100 /min SpO2 93 % LOW Systolic Blood Pressure 156 mmHg HI Diastolic Blood Pressure 84 mmHg SpO2. 11/03/2012 20:59 CDT SpO2 93 % LOW General: Alert and no acute distress. Skin: Warm, dry and intact. Head: Normocephalic and atraumatic. Neck: Shooting pain in the posterior right neck and head with attempted rotation of the head to the right. No pain with rotation to the left. Mild pain with flexion, although no rigidity resisting flexion. Tenderness over the scalp just above the mastoid and tenderness down the sternocleidomastoid. . Eye: Pupils are equal, round and reactive to light, extraocular movements are intact, normal conjunctiva and vision unchanged. Neurological: Alert and oriented to person, place, time, and situation, No focal neurological deficit observed, CN II-XII intact, normal sensory observed, normal motor observed, normal speech observed and normal coordination observed. Medical Decision Making Results review:Lab results : Lab View. 11/03/2012 21:10 CDT WBC 9.7 x10(9)/L Neutro % 58.8 % Lymph % 31.9 % Breath[place] % 6.9 % Eos % 2.2 % Baso % 0.2 % Neutro Absolute 5.73 10(9)/L Lymph Absolute 3.10 x10(9)/L HI [place] Absolute 0.67 x10(9)/L Eos Absolute 0.21 x10(9)/L Baso Absolute 0.02 x10(9)/L Differential? Auto CRP 0.4 mg/dL Notes:Exam, vitals and labs do not support meningitis. Symptoms fit for cervical strain or myofascial pain. Patient given IM toradol with some improvement. Prescriptions for Tramadol and cyclobenzaprine provided. . Impression and Plan Diagnosis Cervical strain or myofascial pain. Plan Condition: Improved, Stable. Disposition: Discharged: to home. Patient was given the following educational materials: NECK SPASM, No Trauma, NECK SPASM, No Trauma. Follow up with: RABIA NATHAN Within As Needed; Return to Emergency Department Within As Needed Return to ER if you develop severe worsening, generalized headache with fevers. . Counseled: Patient, Friend, Regarding diagnosis, Regarding diagnostic results, Regarding treatment plan, Regarding prescription, Patient indicated understanding of instructions. Electronically Signed By: STEPHEN TOTH MD On: 11/03/2012 10:04 PM Modified by and Electronically Signed by: STEPHEN TOTH MD On: 11/03/2012 09:21 PM Source: [facility] [employer] Document Id: [id number]} Rylee Romero R.N. - 11/03/2012 8:44 PM CDT ED Triage Assessment ED Triage Assessment Entered On: 11/03/2012 20:47 CDT Performed On: 11/03/2012 20:44 CDT by RYLEE ROMERO RN Reason For Visit Problems(Active) Headache Migraine Name of Problem: Headache Migraine ; Onset Date: 01/21/2012 ; Recorder: RABIA NATHAN MD; Confirmation: Confirmed ; Classification: Medical ; Code: 1231 ; Last Updated: 01/22/2012 13:57 CDT ; Life Cycle Status: Active ; Responsible Provider: RABIA NATHAN MD; Vocabulary: ICD-9-CM Name of Problem: ; Onset Date: 2007 ; Recorder: GLEN ACOSTA; Confirmation: Confirmed ; Classification: Medical ; Code: 1231 ; Contributor System: [employer] ; Last Updated: 01/21/2012 9:41 CDT ; Life Cycle Date: 01/12/2012 ; Life Cycle Status: Active ; Responsible Provider: GLEN ACOSTA; Vocabulary: ICD-9-CM Diagnoses(Active) Head pain Date: 11/03/2012 ; Diagnosis Type: Reason For Visit ; Confirmation: Complaint of ; Clinical Dx: Head pain ; Classification: Medical ; Clinical Service: Emergency medicine ; Code: PNED ; Probability: 0 ; Diagnosis Code: [id number] Triage Chief Complaint Description : 26 year old female admits with compalints of right sided ocipital painx24 hrs. Pt states she has been exposed to menigitis on Wednesday Information Given By : Patient Mode of Arrival ED : Private vehicle Track : Medical Languages : Mauritian RYLEE ROMERO RN - 11/03/2012 20:44 CDT Pain Assessment Pain Symptoms : Yes RYLEE ROMERO RN - 11/03/2012 20:44 CDT Pain Pain Assessment Grid Pain 1 Location : Head Laterality : Right Intensity : 8 Aggravating Factors : Movement (Comment: coughing also makes head hurt [RYLEE ROMERO RN - 11/03/2012 20:44 CDT] ) RYLEE ROMERO RN - 11/03/2012 20:44 CDT ED Physician Notification Time ED Physician Notification Time : 11/03/2012 20:47 CDT RYLEE ROMERO RN - 11/03/2012 20:44 CDT Allergy Allergies (Active) penicillins Estimated Onset Date: Unspecified ; Created By: GLEN ACOSTA; Reaction Status: Active ;Category: Drug ; Substance: penicillins ; Type: Allergy ; Updated By: GLEN ACOSTA; Reviewed Date: 04/05/2012 8:11 CDT Immunizations Last Tetanus : < 5 years Influenza : None RYLEE ROMERO RN - 11/03/2012 20:44 CDT Source: [employer] Document Id: [id number] documented in this encounter Miscellaneous Notes Miscellaneous - Conversion, Historical Provider Ser - 11/03/2012 8:13 PM CDT Facility Charge Ticket Facility Charge Ticket Entered On: 11/08/2012 13:29 CDT Performed On: 11/03/2012 20:13 CDT by AKUA HILL Facility Charge TVL Level for Facility Charge Ticket : Level 4 Mode of Arrival ED : Private vehicle [facility] Mode of Arrival Interpreted : Standard [facility] Process Management : None [facility] Order Management : Lab tests 30 Minutes Critical Care : No [facility] Nursing Assessment : Triage and 1-2 nursing assessments [facility] Disposition : Discharge [facility] Total Points with Diagnosis Control : 8 [facility] Visit Level : 35765 Level 4 AKUA HILL - 11/08/2012 13:29 CDT Source: [employer] Document Id: [id number] documented in this encounter Plan of Treatment Scheduled Procedures Name Priority Associated Diagnoses Date/Time COLONOSCOPY Diarrhea documented as of this encounter Procedures Procedure Name Priority Date/Time Associated Diagnosis Comme nts HXWBC WITH AUTO Routine 11/03/2012 9:10 PM Result s for this DIFF CDT procedure are i n the results section. AUTOMATED Routine 11/03/2012 9:10 PM Results f or this DIFFERENTIAL, B CDT procedure ar e in the results section. C-REACTIVE PROTEIN Routine 11/03/2012 9:10 PM Res ults for this (CRP), S/P CDT procedure are i n the results section. documented in this encounter Results (ABNORMAL) Automated Differential (11/03/2012 9:10 PM CDT) Patholo gist Method Time Signature Neutro % 58.8 42.0 - POWERCHART 77.0 Lymphocytes % 31.9 23.0 - POWERCHART 44.0 HX [place] % 6.9 2.0 - 18.0 POWERCHART HX Eos % 2.2 1.0 - 5.0 POWERCHART HX Baso % 0.2 0.0 - 1.0 POWERCHART Absolute 5.73 1.70 - POWERCHART Neutrophils 7.00 109L Lymphocytes 3.10 (H) 0.90 - POWERCHART 2.90 X109L Monocytes 0.67 0.30 - POWERCHART 0.90 X109L Eosinophils 0.21 0.05 - POWERCHART 0.50 X109L Absolute 0.02 0.00 - POWERCHART Basophil 0.30 X109L Specimen Anatomical Collection Method Collection Time Receive d Time (Source) Location / / Volume Laterality Blood 11/03/2012 9:10 PM 11/03/ 3 9:10 CDT PM CDT Stephen Toth M.D. LAB BLOOD ADD-ON Performing Organization Address City/State/ZIP Code Phon e Number POWERCHART HXWBC WITH AUTO DIFF (11/03/2012 9:10 PM CDT) P athologist Signature Leukocytes 9.7 3.4 - 10.5 POWERCHART X109L HXDifferential? Auto POWERCHART Specimen (Source) Anatomical Collection Method Collection Time Re ceived Time Location / / Volume Laterality Blood 11/03/2012 9:10 PM CDT Stephen Toth M.D. LAB HISTORICAL ORDERS Performing Organization Address [facility] Code Phon e Number POWERCHART CRP (C-Reactive Protein) (11/03/2012 9:10 PM CDT) P athologist Signature C-Reactive 0.4 0.0 - 0.8 POWERCHART Protein (CRP), MGDL S Specimen (Source) Anatomical Collection Method Collection Time Re ceived Time Location / / Volume Laterality Blood 11/03/2012 9:10 PM CDT Stephen Toth M.D. LAB BLOOD ADD-ON Performing Organization Address [facility] Code Phon e Number POWERCHART documented in this encounter Visit Diagnoses Not on filedocumented in this encounter
--- OUTSIDE RECORDS SUMMARY | 2022-06-29 09:34 | XMS_ITS | Encounter Summary ---
:1985 Author Organization [facility] Address [address] [place] [address] Care Team Providers Name Role Phone Unavailable Primary Care Provider Unavailable Encounter Details Date Type Department Care Team Description 01/21/2012 Hospital Encounter [facility] [address] [place] [phone] (Wo rk) Social History Tobacco Use [...] How often do you attend tenriism or denominational More than 4 time s per year [...] Sign Reading Time Taken Comments Blood Pressure 127/74 01/21/2012 9:21 AM CDT Pulse 92 01/21/2012 9:21 AM CDT Temperature - - Respiratory Rate 20 01/21/2012 9:21 AM CDT Oxygen Saturation - - Inhaled Oxygen Concentration - - Weight 123 kg (270 lb 15.1 oz) 01/21/2012 9:21 AM CDT Height - - Body Mass Index 49.23 01/12/2012 6:01 PM CDT documented in this encounter Progress Notes Leonora Farias M.D. - 01/21/2012 12:00 AM CDT [id number] CHIEF COMPLAINT/REASON FOR VISIT Headache. HISTORY OF PRESENT ILLNESS The patient is a 26-year-old female who reports a history of bad headaches for the past two years. She has been evaluated in the past and was started on Imitrex but it did not help. For this reason she quit taking it and states she just deals with the headaches. They typically happen about three to four times per week and will last most of the day when they occur. They are associated with some nausea as well as light and sound sensitivity. She will sometimes take Tylenol or ibuprofen but really they do not help so she does not frequently take anything. Some times sleeping does help. Yesterday she developed a horrible headache and felt sick. She would feel dizzy as though she was going to pass out when she would stand. She tried taking some Tylenol because it was so bad but it did not help. The pain was a constant pain and was sharp in the frontal region and really all over. It was associated with mild nausea as well as light and sound sensitivity. When she woke up this morning, the headache continues which is why she is here. She states that this is her normal headache. It is just more severe than she normally gets. She has also had some difficulty with her ears feeling plugged and that continues. She otherwise denies any numbness or tingling. When she would stand and feel dizzy, she would have blurred vision but otherwise that has not been a problem. She cannot identify any triggers for her headaches. CURRENT MEDICATIONS Reconciled. New medicines are: Toradol 16 mg IM x1. Phenergan 12.5 mg IM x1. We also started Inderal LA 80 mg by mouth daily. ALLERGIES Penicillin. SYSTEMS REVIEW Review of systems as per history of present illness. Patient will occasionally have a runny nose and a sore throat, but she is not having those now. PAST MEDICAL/SURGICAL HISTORY Past medical history is positive only for headaches. Past surgical history: None. FAMILY HISTORY Patient's paternal grandmother had headaches. SOCIAL HISTORY The patient has a 4-year-old son. She does not use any alcohol. She is trying to cut down on her soda and will drink one can a day. She smokes about a half pack per day. VITAL SIGNS Temperature is 36 degreesC. Pulse is 92 beats per minute. Respiratory rate is 20 breaths per minute. Blood pressure is 127/74. Oxygen saturation is 98% on room air. Weight is 122.9 kg. PHYSICAL EXAMINATION GENERAL: The patient is alert, oriented. She does look in some pain. HEENT: Tympanic membranes are clear bilaterally with good light reflex. Nasal mucosa is unremarkable. Oral mucosa is moist. There is no oral pharyngeal erythema. Pupils are equal, round and reactive to light. Extraocular movements are intact and funduscopic exam is normal. NECK: Neck is supple. No lymphadenopathy. CARDIOVASCULAR EXAM: Regular rate and rhythm. Normal S1, S2. No murmurs, rubs or gallops. LUNGS: Clear to auscultation bilaterally. EXTREMITIES: No edema. NEUROLOGIC: Cranial nerves II-XII are intact. The patient has symmetric and coordinated finger tapping and [id number] rubbing. Strength is 5 out of 5 in upper and lower extremities bilaterally. Patellar reflexes are 2+ bilaterally. IMPRESSION/REPORT/PLAN 1. Acute migraine. I gave the patient options for treatment today including Toradol and Phenergan intramuscular versus migraine protocol in the hospital. The patient would prefer to do the Toradol and Phenergan and go home. I think this is reasonable. We also discussed prevention of her headaches since she is getting them so often and patient is very interested in this. We discussed various options including antidepressants, anticonvulsants and antihypertensives. With the patient's blood pressure as it is, I think she would tolerate a beta robert, so we will start her in Inderal one pill daily. We discussed that these medicines do not work immediately and it will need to build up in her system, but hopefully we will see a reduction in her headaches. We also discussed the possibility of following up with neurology in the future if necessary. Also, the patient has never had imaging of her head done. I certainly do not see a reason to get that emergently, but at some point in the future if the patient's headaches are not coming under control, it may be considered. PATIENT EDUCATION: Ready to learn No apparent learning barriers were identified Learning preferences include listening Explained diagnosis and treatment plan Patient/Child/Caregiver expressed understanding of the content Leonora Brito M.D. /jessica Electronically Signed By: LEONORA NATHAN MD On: 01/26/2012 07:59 AM Modified by and Electronically Signed by: LEONORA NATHAN MD On: 01/26/2012 07:59 AM Source: [facility] [id number] Document Id: [id number] documented in this encounter Miscellaneous Notes Miscellaneous - Leonora Farias M.D. - 01/21/2012 9:53 AM CDT Ambulatory Depart Summary [address] [address] Visit Information Name: PUNEET FRIED Visit Date: 01/21/2012 09:53:11 Attending Provider: RUIZ KING MD Primary Care Provider: RUIZ KING MD PUNEET FRIED has been given the following list of medications: Your Medications It is important to take your medications as directed. Use a pill box or chart to help remind you to take your medications. Please let your doctor or nurse know if you have problems taking your medications. Medication/Strength Dose Route Frequency Indications/Special Instructions/Comments propranolol (Inderal LA 80 mg oral capsule, extended release) 80 mg Oral once a day Attention: If you have any medications at home that are not on this list, DO NOT take them until youcontact your provider for clarification. Additional Information: Source: [facility] POWERCHART Document Id: [id number] Miscellaneous - Leonora Farias M.D. - 01/21/2012 9:53 AM CDT Ambulatory Patient Summary [id number] [place] [address] Visit Information Name: PUNEET FRIED Current Date: 01/21/2012 09:53:12 Physicians Attending Provider: RUIZ KING MD Primary Care Provider: RUIZ KING MD Your Medications Here is a list of your medications. It is important to take your medications as directed. Use a pillbox or chart to help remind you to take your medications. Please let your doctor or nurse know if you have problems taking your medications. Medication/Strength Dose Route Frequency Indications/Special Instructions/Comments propranolol (Inderal LA 80 mg oral capsule, extended release) 80 mg Oral once a day Attention: If you have any medications at home that are not on this list, DO NOT take them until youcontact your provider for clarification. Your Allergies & Intolerances Substance Reaction Symptoms Category Comments penicillins Drug Your Problem List Problem Status Onset Comments Active 08/23/2007 Your Upcoming Appointments Date Time Location Reason Provider No Appointments found Your Goals/Additional instructions: Source: [facility] POWERCHART Document Id: [id number] Miscellaneous - Bessy Herrera, LBrittaneyP.N. - 01/21/2012 9:21 AM CDT Adult Grain Receiver Intake/History Adult Grain Receiver Intake/History Entered On: 01/21/2012 9:28 CDT Performed On: 01/21/2012 9:21 CDT by BESSY HERRERA LPN, RT Intake Chief Complaint : f/u concerned about continued headache x 2 days Temperature Core : 36C(Converted to: 96.8DegF) (LOW) Peripheral Pulse Rate : 92/min Respiratory Rate : 20/min Heart Rhythm : Regular Systolic Blood Pressure : 127mmHg Diastolic Blood Pressure : 74mmHg NIBP Mean : 92mmHg BP Location : Left upper extremity Blood Pressure Cuff Size : Large SpO2 : 98% Oxygen Therapy : Room air Actual Weight : 122.9kg(Converted to: 270lb 15oz) Weight Source : Standing scale Dosing Weight Clinic : 122.90kg BESSY HERRERA LPN, 01/21/2012 9:21 CDT General Info Information Given By : Patient Preferred Communication Mode : Verbal Languages : Brazilian BESSY HERRERA LPN, 01/21/2012 9:21 CDT Subjective Pain Symptoms : Yes BESSY HERRERA LPN, 01/21/2012 9:21 CDT Pain Pain Assessment Grid Pain 1 Location : Head Laterality : Bilateral Intensity : 8 Time Pattern : Chronic, Constant Onset : Other: constant Quality : Aching, Sharp, Throbbing, Tightness Pain Radiation : Yes Aggravating Factors : Light, Movement, Noise Alleviating Factors : None Associated Symptoms : Nausea Interventions : MD notified BESSY HERRERA LPN, 01/21/2012 9:21 CDT Dependent Habits Tobacco Use/Currently Using : Yes Smoking Status : Current every day smoker BESSY HERRERA LPN, 01/21/2012 9:21 CDT Tobacco Use Grid Type : Cigarettes Cigarette Use Packs/Day : 0.5 BESSY HERRERA LPN, 01/21/2012 9:21 CDT Alcohol Use : No BESSY HERRERA LPN, 01/21/2012 9:21 CDT Caffeine Use Grid Caffeine Use : Current Type : Coffee, Soft drinks Frequency : Daily BESSY HERRERA LPN, 01/21/2012 9:21 CDT Recreational Drug Use Grid Drug Use : None BESSY HERRERA LPN, 01/21/2012 9:21 CDT Allergy Allergies (Active) penicillins Estimated Onset Date: Unspecified ; Created By: GLEN ACOSTA; Reaction Status: Active ;Category: Drug ; Substance: penicillins ; Type: Allergy ; Updated By: GLEN ACOSTA; Reviewed Date: 01/12/2012 18:06 CDT Source: APJeT Document Id: [id number] documented in this encounter Plan of Treatment Scheduled Procedures Name Priority Associated Diagnoses Date/Time COLONOSCOPY Diarrhea documented as of this encounter Visit Diagnoses Not on filedocumented in this encounter
--- OUTSIDE RECORDS SUMMARY | 2022-06-29 09:34 | XMS_ITS | Encounter Summary ---
:1985 Author Organization [facility] Address [address] [place] [address] Care Team Providers Name Role Phone Unavailable Primary Care Provider Unavailable Encounter Details Date Type Department Care Team Description 12/23/2011 Hospital Encounter HX [facility] [...] How often do you attend restorationism or mandaen More than 4 time s per year [...]
--- OUTSIDE RECORDS SUMMARY | 2022-06-29 09:34 | XMS_ITS | Encounter Summary ---
:[address] [facility] Address [address] [place] [address] Care Team Providers Name Role Phone Unavailable Primary Care Provider Unavailable Encounter Details Date Type Department Care Team Description 11/27/2011 Hospital Encounter HX [facility] [...] How often do you attend restorationist or spiritism More than 4 time s [...]
--- OUTSIDE RECORDS SUMMARY | 2022-06-29 09:34 | XMS_ITS | Encounter Summary ---
:1985 Author Organization [facility] Address [address] [place] [address] Care Team Providers Name Role Phone Unavailable Primary Care Provider Unavailable Encounter Details Date Type Department Care Team Description 02/17/2012 Hospital Encounter HX [facility] [...] How often do you attend christianity or taoism More than 4 time s [...]
--- OUTSIDE RECORDS SUMMARY | 2022-06-29 09:34 | XMS_ITS | Encounter Summary ---
:1985 Author Organization [facility] Address [address] [place] [address] Care Team Providers Name Role Phone Unavailable Primary Care Provider Unavailable Encounter Details Date Type Department Care Team Description 01/25/2013 Hospital Encounter [facility] Renuka Choi M.D. [address] [place] [phone] (Wo rk) Social History Tobacco Use Types [...] often do you attend jehovah's witness or amish More than 4 time s [...] documented as of this encounter Progress Notes Nyasia Borges M.D. - 01/25/2013 9:45 AM CDT [id number] SUBJECTIVE: Carol Juarez is an 27 year old who presents for her annual well woman exam. She is amenorrheic with her Mirena IUD. The patient desires a Mirena IUD removal/ replacement today (IUD was placed 5 years ago). The patient has a good appetite, no early satiety or abdominal bloating. No vaginal discharge. No vulvar or vaginal lesions/ itching. She is in a monogamous relationship. The patient is amenable to GC/CT testing; otherwise, she does not desire STD screening today. Past Medical History Diagnosis Date Transient hypertension of , antepartum 12/29/07 Hospitalized Body mass index 40 and over, adult Oligohydramnios, delivered 01/06/08 Hospitalized Mild or unspecified pre-eclampsia, with delivery Infection of amniotic cavity, delivered Body mass index 40 and over, adult Family History Problem Relation Age of Onset Diabetes No family hx of Hypertension Maternal Grandmother Breast CA No family hx of Cancer Maternal Grandfather throat Cancer Maternal Grandmother skin Respiratory Sister cystic fibrosis Colon CA No family hx of Ovarian Cancer No family hx of Endometrial Cancer No family hx of Cancer Paternal Grandmother lung, brain Past Surgical History Procedure Date C full rout obste care,vaginal deliv 01/03/08 baby boy Current Outpatient Prescriptions Medication MIRENA 20 MCG/24HR IU IUD IBUPROFEN 200 MG OR TABS Allergies Allergen Reactions No Known Allergies History Substance Use Topics Smoking status: Current Everyday Smoker -- 0.2 packs/day for 3 years Types: Cigarettes Smokeless tobacco: Never Used Comment: less than quarter pack daily/declines quit line 8-2-10, 06/11/10 Alcohol Use: Yes rare Leadership Development Manager History: No history of STDs. PAP NIL 06/27/2010 PAP NIL 10/30/2008 PAP NIL 06/27/2007 Ob History: Review Of Systems: Per HPI OBJECTIVE: Temp 96.7 ??F (35.9 ??C) Ht 1.575 m (5' 2) Wt 123.378 kg (272 lb) BMI 49.75 kg/m2 ? No General appearance: No acute distress, alert and oriented X 3 Neck: Supple, no thyromegaly CV: Regular rate and rhythm without murmurs gallops or rubs Resp: Clear to auscultation bilaterally, no wheezing or rales Abd: Soft, non-tender, non-distended, positive bowel sounds. Ext: No clubbing, cyanosis or edema Breast: No gross abnormalities. No masses. No nipple discharge or nipple retractions. No axillary lymphadenopathy. Pelvic: Uterus normal size and shape, no adnexal masses appreciated. SSE: No vulvar/ vaginal/ cervical lesions. No foul smelling vaginal discharge. Ms Juarez is a currently using Mirena IUD for contraception. Patient is in wishing to have another Mirena IUD inserted. She already has reviewed the IUD information booklet. Initial pelvic exam revealed no abnormal discharge in the vagina. Cx looking normal. Uterus, normal size. Adnexae, negative. After cleansing the vagina with Betadine solution a Mirena IUD was inserted without difficulty. The thread was trimmed 3 cms from the cervical os. She was advised to check the IUD thread, following the completion of her next period. Pause for the cause has been completed prior to yes. 1. Carol Juarez was identified by both name and date of - YES. 2. The correct site was identified - YES. 3. Site marked by provider - NO. 4. Written informed consent correct and signed or verbal authorization to proceed is obtained - YES. 5. Verify necessary supplies, equipment, and diagnostics are available - YES. 6. Time out is performed immediately prior to procedure - YES. ASSESSMENT: Satisfactory annual cadd technician exam Desires Mirena IUD removal and re-insertion Obesity PLAN: Dx: 1) Pap smear 2) GC/CT 3) Fasting lipid profile/ fasting glucose/ TSH with reflex free T4 4) Mirena IUD removed/ IUD re-insertion. Will check a TVUS to confirm proper placement PE: Reviewed health maintenance including diet, regular exercise and periodic exams. Source: [facility] [id number] Document Id: [id number] documented in this encounter Miscellaneous Notes Miscellaneous - Nyasia Borges M.D. - 01/25/2013 9:45 AM CDT [id number] January 30, 2013 Carol Juarez [address] [place] [phone] Your doctor has requested to have you return for a thryoid, glucose, and cholesterol test at this time. You may call our office at [phone] in Obstetrics/Gynecology to schedule an appointment. Please ask to schedule a LAB APPOINTMENT Please disregard this notice if you already have had this lab repeated or have already made an appointment. Sincerely, Lory Hardy Source: [facility] [id number] Document Id: [id number] documented in this encounter Plan of Treatment Scheduled Procedures Name Priority Associated Diagnoses Date/Time COLONOSCOPY Diarrhea documented as of this encounter Procedures Procedure Name Priority Date/Time Associated Comments Diagnosis HX SN - SPEC - Routine 01/26/2013 2:02 PM Results for this DESCRIPTION CDT procedure are i n the results section. HX SN - SPEC - Routine 01/26/2013 2:02 PM Results for this DESCRIPTION CDT procedure are i n the results section. HX CHLAMYDIA Routine 01/26/2013 2:02 PM Results f or this TRACHOMATIS AMPLIFIED CDT proced ure are in DNA-ID the results section. CHLAMYDIA TRACHOMATIS Routine 01/26/2013 2:02 PM Results for this AMPLIFIED RNA CDT procedure are in the results section. documented in this encounter Results HX CHLAMYDIA TRACHOMATIS AMPLIFIED DNA-ID (01/26/2013 2:02 PM CDT) Specimen (Source) Anatomical Collection Method Collection Time Re ceived Time Location / / Volume Laterality 01/26/2013 2:02 PM CDT Narrative [facility] - 10/23/19 14 9:59 PM DYE OPERATOR Negative for C. trachomatis rRNA by electrician mediated amplification. A negative result by electrician media pipe amplification does not preclude the presence of C. trachomatis infection bec ause results are dependent on proper and adequate collection, absence of inhi bitors, and sufficient rRNA to be detected. Historical Provider LAB HISTORICAL ORDERS Performing Organization Address City/[facility]/ZIP Code Phon e Number [facility] HX SN - SPEC - DESCRIPTION (01/26/2013 2:02 PM CDT) P athologist Signature HXSPECIMAN Cervix [facility] Specimen (Source) Anatomical Collection Method Collection Time Re ceived Time Location / / Volume Laterality 01/26/2013 2:02 PM CDT Historical Provider LAB HISTORICAL ORDERS Performing Organization Address City/State/ZIP Code Phon e Number [facility] Chlamydia trachomatis Amplified RNA (01/26/2013 2:02 PM CDT) Specimen (Source) Anatomical Collection Method Collection Time Re ceived Time Location / / Volume Laterality 01/26/2013 2:02 PM CDT Narrative [facility] - 10/23/19 14 9:59 PM DYE OPERATOR Negative for N. gonorrhoeae rRNA by electrician mediated amplification. A negative result by electrician media pipe amplification does not preclude the presence of N. gonorrhoeae infection bec ause results are dependent on proper and adequate collection, absence of inhi bitors, and sufficient rRNA to be detected. Historical Provider LAB MICROBIOLOGY - GENERAL O RDERABLES Performing Organization Address City/[facility]/ZIP Code Phon e Number [facility] HX SN - SPEC - DESCRIPTION (01/26/2013 2:02 PM CDT) P athologist Signature HXSPECIMAN Cervix [facility] Specimen (Source) Anatomical Collection Method Collection Time Re ceived Time Location / / Volume Laterality 01/26/2013 2:02 PM CDT Historical Provider LAB HISTORICAL ORDERS Performing Organization Address City/State/ZIP Code Phon e Number [facility] documented in this encounter Visit Diagnoses Not on filedocumented in this encounter
--- OUTSIDE RECORDS SUMMARY | 2022-06-29 09:34 | XMS_ITS | Encounter Summary ---
:1985 Author Organization [facility] Address [address] [place] [address] Care Team Providers Name Role Phone Unavailable Primary Care Provider Unavailable Encounter Details Date Type Department Care Team Description 08/02/2013 Hospital Encounter HX NO MAPPING Berny Garcia M.D. [address] [place], [place] [phone] (Wo rk) Social History [...] How often do you attend jewish or church More than 4 time s [...]
--- OUTSIDE RECORDS SUMMARY | 2022-06-29 09:34 | XMS_ITS | Encounter Summary ---
:[address] [facility] Address [address] [place] [address] Care Team Providers Name Role Phone Unavailable Primary Care Provider Unavailable Encounter Details Date Type Department Care Team Description 01/12/2012 Hospital Encounter HX [facility] CAM ID Gildardo Marvin M.D. [address] [place] [phone] (Wo rk) Social History Tobacco Use [...] How often do you attend taoism or catholic More than 4 time s [...] Sign Reading Time Taken Comments Blood Pressure 110/60 01/12/2012 6:01 PM CDT Pulse 72 01/12/2012 6:01 PM CDT Temperature - - Respiratory Rate 16 01/12/2012 6:01 PM CDT Oxygen Saturation - - Inhaled Oxygen Concentration - - Weight 122 kg (268 lb 4.8 oz) 01/12/2012 6:01 PM CDT Height 158 cm (5' 2.21) 01/12/2012 6:01 PM CDT Body Mass Index 48.75 01/12/2012 6:01 PM CDT documented in this encounter Progress Notes Vinicio Marvin M.D. - 01/12/2012 12:00 AM CDT [id number] IMPRESSION/REPORT/PLAN 1. Eustachian tube dysfunction. 2. Headache. 3. Allergic rhinitis. Flonase two per nostril once daily to two times a day. Zyrtec prescribed. May need a Medrol Dosepak, but hesitate to give this to her given that she has a huge burden with morbid obesity as mentioned below. Recheck if not improved. May eventually need an ENT consultation if such would be needed. CHIEF COMPLAINT/REASON FOR VISIT Headache longstanding over a month. HISTORY OF PRESENT ILLNESS For months and months she has been initially three days before migraine headaches. She was given antihypertensives for this and she finally gave up and discontinued this without any relief and now they are worse than ever including her ears that bother her now and this is what drives her in. She is congested having posterior nasal drainage as well as frontal. She has a cough that is productive only of clear mucus. Not purulent. No fever. She also suffers from marked obesity with a BMI of over 45%. ALLERGIES Penicillin. SYSTEM REVIEW Fatigue. No scotomata. Denies fever. Rates her pain 7/10. SOCIAL HISTORY She smokes a half a pack of cigarettes daily. PHYSICAL EXAM HEENT: Retracted tympanic membranes. No erythema. No submandibular, supraclavicular, or periauricular adenopathy. Oropharynx unremarkable. Nasal tone to voice. Swollen nasal passages. Sclerae are not injected. LUNGS: Decreased breath sounds at bases. Otherwise clear. CARDIAC: Regular. Vinicio Marvin M.D. /jessica Electronically Signed By: VINICIO MARVIN MD On: 01/15/2012 10:03 AM Source: [facility] Document Id: [id number] documented in this encounter Miscellaneous Notes Miscellaneous - Vinicio Marvin M.D. - 01/12/2012 6:46 PM CDT Ambulatory Depart Summary [address] [address] Visit Information Name: PUNEET FRIED Visit Date: 01/12/2012 18:46:37 Attending Provider: VINICIO MARVIN MD Primary Care Provider: VINICIO MARVIN MD PUNEET FRIED has been given the following list of medications: Your Medications It is important to take your medications as directed. Use a pill box or chart to help remind you to take your medications. Please let your doctor or nurse know if you have problems taking your medications. Medication/Strength Dose Route Frequency Indications/Special Instructions/Comments cetirizine (Zyrtec 10 mg oral tablet) 10 mg Oral once a day for 30 Days fluticasone nasal (Flonase 0.05 mg/inh nasal spray) 2 spray(s) Nasal two times a day Attention: If you have any medications at home that are not on this list, DO NOT take them until youcontact your provider for clarification. Additional Information: Source: [facility] POWERCHART Document Id: [id number] Miscellaneous - Vinicio Marvin M.D. - 01/12/2012 6:46 PM CDT Ambulatory Patient Summary [address] [address] Visit Information Name: PUNEET FRIED Current Date: 01/12/2012 18:46:37 Physicians Attending Provider: VINICIO MARVIN MD Primary Care Provider: VINICIO MARVIN MD Your Medications Here is a list of your medications. It is important to take your medications as directed. Use a pillbox or chart to help remind you to take your medications. Please let your doctor or nurse know if you have problems taking your medications. Medication/Strength Dose Route Frequency Indications/Special Instructions/Comments cetirizine (Zyrtec 10 mg oral tablet) 10 mg Oral once a day for 30 Days fluticasone nasal (Flonase 0.05 mg/inh nasal spray) 2 spray(s) Nasal two times a day Attention: If you have any medications at home that are not on this list, DO NOT take them until youcontact your provider for clarification. Your Allergies & Intolerances Substance Reaction Symptoms Category Comments penicillins Drug Your Problem List Problem Status Onset Comments Active 12/27/2007 Your Upcoming Appointments Date Time Location Reason Provider No Appointments found Your Goals/Additional instructions: Source: [facility] POWERCHART Document Id: [id number] Miscellaneous - Josephine Acosta L.PBrittaneyN. - 01/12/2012 6:07 PM CDT Health Assessment Health Assessment Entered On: 01/12/2012 18:08 CDT Performed On: 01/12/2012 18:07 CDT by JOSEPHINE ACOSTA Health Assessment Complete Health Assessment Complete or Modified : Annual Health Assessment Annual Health Assessment Completed : Yes JOSEPHINE ACOSTA - 01/12/2012 18:07 CDT Nutrition Nutrition Risk Factors by History Adult : None JOSEPHINE ACOSTA 01/12/2012 18:07 CDT Functional Current Daily Living Assistance : None JOSEPHINE ACOSTA 01/12/2012 18:07 CDT Dependent Habits Tobacco Use/Currently Using : Yes Tobacco Use/Advised to Quit : Yes Smoking Status : Current every day smoker JOSEPHINE ACOSTA 01/12/2012 18:07 CDT Tobacco Use Grid Type : Cigarettes Cigarette Use Packs/Day : 0.5 JOSEPHINE ACOSTA 01/12/2012 18:07 CDT Psychosocial Domestic Abuse Concerns : None JOSEPHINE ACOSTA 01/12/2012 18:07 CDT Advance Directive Advanced Directives : No JOSEPHINE ACOSTA 01/12/2012 18:07 CDT Educ Needs Learning Style Preference Adult Grid Patient : Verbal explanation Family : None KARLA JOSEPHINE - 01/12/2012 18:07 CDT [facility] Document Id: [id number] CDT!24 Miscellaneous - Josephine Acosta L.P.N. - 01/12/2012 6:01 PM CDT Adult Facial Operator Intake/History Adult Facial Operator Intake/History Entered On: 01/12/2012 18:06 CDT Performed On: 01/12/2012 18:01 CDT by JOSEPHINE ACOSTA Intake Chief Complaint : ear pressure and painfull has been waking up with pounding CHOWDHURY's located in forehead and nasal area family history of sinus problems Temperature Core : 36.9C(Converted to: 98.4DegF) Peripheral Pulse Rate : 72/min Respiratory Rate : 16/min Heart Rhythm : Regular Systolic Blood Pressure : 110mmHg Diastolic Blood Pressure : 60mmHg NIBP Mean : 77mmHg BP Location : Left upper extremity Blood Pressure Cuff Size : Large Height : 158cm(Converted to: 5ft 2inch(es), 62.20inch(es)) Actual Weight : 121.7kg(Converted to: 268lb 5oz) Weight Source : Standing scale Dosing Weight Clinic : 121.70kg Clinic BSA : 2.31 Body Mass Index : 48.75kg/m2 KARLA JOSEPHINE - 01/12/2012 18:01 CDT Subjective Pain Symptoms : Yes ACOSTA JOSEPHINE - 01/12/2012 18:01 CDT Pain Pain Assessment Grid Pain 1 Location : Ear Intensity : 7 JOSEPHINE ACOSTA - 01/12/2012 18:01 CDT Dependent Habits Tobacco Use/Currently Using : Yes Tobacco Use/Advised to Quit : Yes Smoking Status : Current every day smoker JOSEPHINE ACOSTA - 01/12/2012 18:01 CDT Tobacco Use Grid Type : Cigarettes Cigarette Use Packs/Day : 0.5 JOSEPHINE ACOSTA - 01/12/2012 18:01 CDT Allergy Source: [facility] Document Id: [id number] CDT!33 documented in this encounter Plan of Treatment Scheduled Procedures Name Priority Associated Diagnoses Date/Time COLONOSCOPY Diarrhea documented as of this encounter Visit Diagnoses Not on filedocumented in this encounter
--- OUTSIDE RECORDS SUMMARY | 2022-06-29 09:34 | XMS_ITS | Encounter Summary ---
:1985 Author Organization [facility] Address [address] [place] [address] Care Team Providers Name Role Phone Unavailable Primary Care Provider Unavailable Encounter Details Date Type Department Care Team Description 12/08/2011 Hospital Encounter HX [facility] [...] or relatives? How often do you attend mandaen or christianity More than 4 time s per year 07/09/2020 services? Do you belong to any clubs or organizations No 04/19/2019 such as mandaen groups, unions, fraternal or athletic groups, or [...] of this encounter Miscellaneous Notes Miscellaneous - Marisol Couch - 12/08/2011 12:00 AM CDT [id number] MARIA T Dowell [address] [phone] [facility] December 08, 2011 Dear Carol: Our records indicate that you recently cancelled your appointment with Kaye Magallanes, Ph.D., L.P.. Thank you for notifying our office. Your next scheduled appointment is: Friday, December 23, 2011 at 12:00 PM If you are unable to keep this appointment, please call the [facility] Department at your earliest convenience at or toll-free at to or cancel or reschedule. We look forward to hearing from you. Thank you, [facility] Source: [facility] Document Id: [id number] documented in this encounter Plan of Treatment Scheduled Procedures Name Priority Associated Diagnoses Date/Time COLONOSCOPY Diarrhea documented as of this encounter Visit Diagnoses Not on filedocumented in this encounter
--- OUTSIDE RECORDS SUMMARY | 2022-06-29 09:35 | XMS_ITS | Encounter Summary ---
:1985 Author Organization [facility] Address [address] [place] [address] Care Team Providers Name Role Phone Unavailable Primary Care Provider Unavailable Encounter Details Date Type Department Care Team Description 01/06/2011 Hospital Encounter HX [facility] [...] How often do you attend methodist or congregational More than 4 time s [...]
--- OUTSIDE RECORDS SUMMARY | 2022-06-29 09:35 | XMS_ITS | Encounter Summary ---
:1985 Author Organization [facility] Address [address] [place] [address] Care Team Providers Name Role Phone Unavailable Primary Care Provider Unavailable Encounter Details Date Type Department Care Team Description 07/07/2011 Hospital Encounter HX [facility] [...] How often do you attend protestant or muslim More than 4 time s per year [...]
--- OUTSIDE RECORDS SUMMARY | 2022-06-29 09:35 | XMS_ITS | Encounter Summary ---
:1985 Author Organization [facility] Address [address] [place] [address] Care Team Providers Name Role Phone Unavailable Primary Care Provider Unavailable Encounter Details Date Type Department Care Team Description 08/28/2011 Hospital Encounter HX NO MAPPING Nelson Bernal M.D. [address] [place] [phone] (Wo rk) Social History Tobacco Use Types [...] How often do you attend denominational or buddhist More than 4 time s [...]
--- OUTSIDE RECORDS SUMMARY | 2022-06-29 09:35 | XMS_ITS | Encounter Summary ---
:1985 Author Organization [facility] Address [address] [place] [address] Care Team Providers Name Role Phone Unavailable Primary Care Provider Unavailable Encounter Details Date Type Department Care Team Description 01/06/2011 Hospital Encounter HX [facility] Provider, Historic al Social History Tobacco Use Types Packs/Day Years [...] How often do you attend orthodox or orthodoxy More than 4 time s [...]
--- OUTSIDE RECORDS SUMMARY | 2022-06-29 09:35 | XMS_ITS | Encounter Summary ---
:1985 Author Organization [facility] Address [address] [place] [address] Care Team Providers Name Role Phone Unavailable Primary Care Provider Unavailable Encounter Details Date Type Department Care Team Description 07/09/2011 Hospital Encounter HX [facility] Yamel Koch M.D. 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 You may call our office at [phone] to schedule an appointment for your six (6) month follow-up visit. Please disregard this notice if you have already made an appointment. Sincerely, [facility] Source: [facility] Document Id: [id number] documented in this encounter Plan of Treatment Scheduled Procedures Name Priority Associated Diagnoses Date/Time COLONOSCOPY Diarrhea documented as of this encounter Visit Diagnoses Not on filedocumented in this encounter
--- OUTSIDE RECORDS SUMMARY | 2022-06-29 09:35 | XMS_ITS | Encounter Summary ---
:1985 Author Organization [facility] Address [address] [place] [address] Care Team Providers Name Role Phone Unavailable Primary Care Provider Unavailable Encounter Details Date Type Department Care Team Description 11/28/2010 Hospital Encounter HX [facility] [...] How often do you attend sabianist or gnosticist More than 4 time s [...]
--- OUTSIDE RECORDS SUMMARY | 2022-06-29 09:35 | XMS_ITS | Encounter Summary ---
:1985 Author Organization [facility] Address [address] [place] [address] Care Team Providers Name Role Phone Unavailable Primary Care Provider Unavailable Encounter Details Date Type Department Care Team Description 08/28/2011 Hospital Encounter HX [facility] Jairon Wolf M.D. [address] [place] [phone] (Wo rk) Social History Tobacco Use Types [...] How often do you attend taoist or oriental orthodox More than 4 time [...] documented as of this encounter Progress Notes Keyla Roberts M.D. - 08/28/2011 2:10 PM CST [id number] CC: follow up ER visit HPI: Carol Juarez is a 25 year old who presents for concerns regarding her IUD. Patient reports having Mirena IUD since 2007. She reports no bleeding for 3 years. She had started having bleeding on Wednesday, worse on Wednesday and . She reports bleeding is bright red with odor. She reports periods in the past were normal without odor. She has not felt IUD strings since placement. Does not think it fell out. Sexually active. No concerns regarding STD. Getting in 04/2012.Denies pelvic pain. Has some nausea. No fevers, chills. ALLERGIES: No known allergies Current Outpatient Rx Name Route Sig Dispense Refill CYCLOBENZAPRINE HCL 5 MG PO TABS Oral Take 1-2 tablets by mouth 3 times daily as needed for muscle spasms. 30 tablet 1 ATENOLOL 25 MG PO TABS Oral Take 1 tablet by mouth daily. 30 tablet 5 VENLAFAXINE HCL 75 MG PO CP24 Oral Take 1 capsule by mouth daily. 90 capsule 1 PROCHLORPERAZINE MALEATE 10 MG PO TABS Oral Take 1 tablet by mouth every 6 hours as needed for nausea. 30 tablet 1 MIRENA 20 MCG/24HR IU IUD Intrauterine placed 02/06/08 1 0 IBUPROFEN 200 MG PO TABS 3-4 tabs prn Past Medical History Diagnosis Date Transient hypertension of , antepartum 12/29/07 Hospitalized Body mass index 40 and over, adult Oligohydramnios, delivered 01/06/08 Hospitalized Mild or unspecified pre-eclampsia, with delivery Infection of amniotic cavity, delivered Body mass index 40 and over, adult Past Surgical History Procedure Date C full rout obste care,vaginal deliv 01/03/08 baby boy Family History Problem Relation Age of Onset Diabetes No family hx of Hypertension Maternal Grandmother Breast CA No family hx of Cancer Maternal Grandfather throat Cancer Maternal Grandmother skin Respiratory Sister cystic fibrosis REVIEW OF SYSTEMS: NEUROLOGIC: negative. EYES: negative. ENT: negative. GI: negative. BREAST: negative. : negative. 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 CV: negative. PULMONARY: No shortness of breath, dyspnea on exertion, cough, or hemoptysis. MUSCULOSKELETAL: negative. PSYCH: negative. PHYSICAL EXAM: This is a well-developed, well-nourished female in no apparent distress. Vitals: BP 126/78 Ht 1.588 m (5' 2.5) Wt 122.244 kg (269 lb 8 oz) BMI 48.51 kg/m2 Source: [facility] Document Id: [id number] Electronically signed by Conversion, [facility] Pst Manager [id number] at 01/23/2017 2:30 PM CDT documented in this encounter Miscellaneous Notes Miscellaneous - Mary Teran L.PBrittaneyN. - 08/28/2011 2:10 PM CST [id number] Carol Juarez [address] [facility] [phone] [facility] August 31, 2011 Dear Juarez: I am writing to inform you the results of the laboratory tests you had done during your recent visitto the clinic. Your results included : STD tests (chlamydia and gonorrhea) were all negative. It was a pleasure to see you in the clinic. If you have any further questions or problems, please contact our office at [phone]. Sincerely, Dr Obie Roberts Dept. GAS APPLIANCE ADJUSTER [facility] Source: [facility] Document Id: [id number] Electronically signed by Conversion, [facility] Pst Manager [id number] at 01/23/2017 2:30 PM CDT documented in this encounter Plan of Treatment Scheduled Procedures Name Priority Associated Diagnoses Date/Time COLONOSCOPY Diarrhea documented as of this encounter Procedures Procedure Name Priority Date/Time Associated Comments Diagnosis HX SN - SPEC - Routine 08/30/2011 3:07 PM Results for this DESCRIPTION LOGISTICS SUPPORT procedure are i n the results section. HX SN - SPEC - Routine 08/30/2011 3:07 PM Results for this DESCRIPTION LOGISTICS SUPPORT procedure are i n the results section. HX CHLAMYDIA Routine 08/30/2011 3:07 PM Results f or this TRACHOMATIS AMPLIFIED LOGISTICS SUPPORT proced ure are in DNA-ID the results section. CHLAMYDIA TRACHOMATIS Routine 08/30/2011 3:07 PM Results for this AMPLIFIED RNA LOGISTICS SUPPORT procedure are in the results section. documented in this encounter Results Chlamydia trachomatis Amplified RNA (08/30/2011 3:07 PM LOGISTICS SUPPORT) Specimen (Source) Anatomical Collection Method Collection Time Re ceived Time Location / / Volume Laterality 08/30/2011 3:07 PM LOGISTICS SUPPORT Narrative [facility] - 10/23/19 14 7:05 PM LOGISTICS SUPPORT Negative for N. gonorrhoeae rRNA by shipping and receiving weigher mediated amplification. A negative result by shipping and receiving weigher media pipe amplification does not preclude the presence of N. gonorrhoeae infection bec ause results are dependent on proper and adequate collection, absence of inhi bitors, and sufficient rRNA to be detected. Historical Provider LAB MICROBIOLOGY - GENERAL O RDERABLES Performing Organization Address City/State/ZIP Code Phon e Number [facility] HX SN - SPEC - DESCRIPTION (08/30/2011 3:07 PM LOGISTICS SUPPORT) [facility] gist Method Time Signature HXSPECIMAN Endocervical [facility] Specimen (Source) Anatomical Collection Method Collection Time Re ceived Time Location / / Volume Laterality 08/30/2011 3:07 PM LOGISTICS SUPPORT Historical Provider LAB HISTORICAL ORDERS Performing Organization Address [facility]/ZIP Code Phon e Number [facility] HX CHLAMYDIA TRACHOMATIS AMPLIFIED DNA-ID (08/30/2011 3:07 PM LOGISTICS SUPPORT) Specimen (Source) Anatomical Collection Method Collection Time Re ceived Time Location / / Volume Laterality 08/30/2011 3:07 PM LOGISTICS SUPPORT [facility] - 10/23/19 14 7:05 PM LOGISTICS SUPPORT Negative for C. trachomatis rRNA by shipping and receiving weigher mediated amplification. A negative result by shipping and receiving weigher media pipe amplification does not preclude the presence of C. trachomatis infection bec ause results are dependent on proper and adequate collection, absence of inhi bitors, and sufficient rRNA to be detected. Historical Provider LAB HISTORICAL ORDERS Performing Organization Address City/[facility]/ZIP Code Phon e Number [facility] HX SN - SPEC - DESCRIPTION (08/30/2011 3:07 PM LOGISTICS SUPPORT) [facility] Method Time Signature HXSPECIMAN Endocervical [facility] Specimen (Source) Anatomical Collection Method Collection Time Re ceived Time Location / / Volume Laterality 08/30/2011 3:07 PM LOGISTICS SUPPORT Historical Provider LAB HISTORICAL ORDERS Performing Organization Address City/State/ZIP Code Phon e Number [facility] documented in this encounter Visit Diagnoses Not on filedocumented in this encounter
--- OUTSIDE RECORDS SUMMARY | 2022-06-29 09:35 | XMS_ITS | Encounter Summary ---
:1985 Author Organization [facility] Address [address] [place] [address] Care Team Providers Name Role Phone Unavailable Primary Care Provider Unavailable Encounter Details Date Type Department Care Team Description 01/06/2011 Hospital Encounter [facility] Yamel Koch M.D. [address] [place] [address] (Wo rk) Social History Tobacco [...] How often do you attend yazidi or jehovah's witness More than 4 time [...] documented as of this encounter Progress Notes Keith Giang M.D. - 01/06/2011 10:45 AM CDT [id number] Chief Complaint Patient presents with Headache talk about ongoing headaches Pain back of neck Subjective: Carol Juarez a 25 year old female who presents with: HEADACHE:The patient complains of headaches for 1 year. Headaches are daily now for the last couple of weeks. Description of pain: bilateral in the occipital area, aching. Associated symptoms: nausea,photophobia. Attempted treatments: Med's - OTC Medications and Imitrex without relief. The pain gets worse throughout the day. Outpatient prescriptions marked as taking for the 01/06/11 encounter (Office Visit) with KEITH GIANG: venlafaxine (EFFEXOR-XR) 75 MG 24 hr capsule Take 1 capsule by mouth daily. Disp: 90 capsule Rfl: 1 MIRENA 20 MCG/24HR IU IUD placed 02/06/08 Disp: 1 Rfl: 0 There are no associated abnormal neurological symptoms such as TIA's, loss of balance, loss of vision or speech, numbness or weakness on review. Past neurological history: negative for stroke, MS, epilepsy, or brain tumor. Other than as mentioned elsewhere review of medications reveals no problems with compliance or side effects. She denies other significant symptoms on ROS of the cardiovascular and Respiratory systems. Current medications reviewed and the patient denies any problems with compliance or side effects. The patientalso reports this headache is typical of the headaches she gets. Objective:Blood pressure 128/90, pulse 80, temperature 97 ??F (36.1 ??C), temperature source Temporal, weight 122.743 kg (270 lb 9.6 oz). The patients general appearance is well nourished well developed without apparent distress. Patient exhibits stable mood, affect, judgment, insight and orientation during conversation. Eyes with normal lids, conjunctiva, pupils and irises. External ears nose are within normal limits. Normal lips teeth and gums. Neck is grossly normal without obvious thyroid abnormality. Skin is without cyanosis and of normal color. No focal neurological deficits noted on gross inspection. Chest wall normal to inspection and palpation. Good excursion bilaterally. Lungs clear to auscultation. Good air movement bilaterally without rales, wheezes, or rhonchi. Regular rate and rhythm. S1 and S2 normal, no murmurs, clicks, gallops or rubs. No edema or JVD. ASSESSMENT: 1. Headache (784.0) PHYSICAL THERAPY (RW/ZU) REFERRAL, atenolol (TENORMIN) 25 MG tablet 2. Dysthymic disorder (300.4) DEPRESSION SCREENING (RW) 3. Neck pain (723.1B) cyclobenzaprine (FLEXERIL) 5 MG tablet, PHYSICAL THERAPY (RW/ZU) REFERRAL Start ATENOLOL 25 mg daily for headache prophylaxis. Flexeril for neck pain. Referral to Physical Therapy. Call or return to clinic prn if these symptoms worsen or fail to improve as anticipated. Consider amitriptyline in the future for headaches, if not improved. Source: [facility] Document Id: [id number] documented in this encounter Plan of Treatment Scheduled Procedures Name Priority Associated Diagnoses Date/Time COLONOSCOPY Diarrhea documented as of this encounter Visit Diagnoses Not on filedocumented in this encounter
--- OUTSIDE RECORDS SUMMARY | 2022-06-29 09:35 | XMS_ITS | Encounter Summary ---
:1985 Author Organization [facility] Address [address] [place] [address] Care Team Providers Name Role Phone Unavailable Primary Care Provider Unavailable Encounter Details Date Type Department Care Team Description 02/17/2011 Hospital Encounter [facility]X [facility] [...] How often do you attend latter-day or confucianism More than 4 time s [...] Miscellaneous - Conversion, Historical Provider Ser - 02/17/2011 12:00 AM CDT [id number]-MHE LETTER Carol Juarez [address] [id number] [facility] [phone] [facility] February 17, 2011 Dear Carol: Our records indicate that you missed your appointment with Kaye Magallanes, Ph.D., L.P. on: February 17, 2011 [facility] has a policy to bill for missed appointments. Appointments that arenot kept need to be cancelled at least 24 hours prior to the appointment to avoid being billed. Unfortunately, your insurance carrier will not cover a no show charge. You have no further appointments scheduled at this time, with Kaye Magallanes, Ph.D., L.P.. If you would like to schedule another appointment, please call at your earliest convenience at [phone] or, toll-free at . Thank you, [facility] Source: [facility] Document Id: [id number] documented in this encounter Plan of Treatment Scheduled Procedures Name Priority Associated Diagnoses Date/Time COLONOSCOPY Diarrhea documented as of this encounter Visit Diagnoses Not on filedocumented in this encounter
--- OUTSIDE RECORDS SUMMARY | 2022-06-29 09:35 | XMS_ITS | Encounter Summary ---
:1985 Author Organization [facility] Address [address] [place] [address] Care Team Providers Name Role Phone Unavailable Primary Care Provider Unavailable Encounter Details Date Type Department Care Team Description 10/13/2010 Hospital Encounter HX NO MAPPING Gregory Grewal P .A.-C. Social History Tobacco Use Types Packs/Day Years [...] How often do you attend druze or jew More than 4 time s per year [...] documented as of this encounter Progress Notes Gregory Grewal - 10/13/2010 5:00 PM CST [id number] Adult female smoker had a fever yesterday to 101.6 and cough for the past 4-5 days, bringing up some yellow phlegm. Occasional wheezing. Did not get an influenza vaccine this year. Her son had a viral illness last week and he is much better. She is here for a work note and not feeling well with a sore throat. PHYSICAL EXAM: Throat: Minimal erythema. Neck: Without adenopathy. Lungs: No wheezing, rales, or rhonchi. Tympanic membranes are clear. Examination with permission of the airway and chest. ASSESSMENT: Tobacco dependency Upper respiratory infection. Bronchitis with bronchospasm. PLAN: ProAir inhaler 1 or 2 puffs every 4 hours p.r.n. Z-Kirit for 5 days. Rest at home today, recheck if problems persist or increase i.e. worsening cough, fever or shortness of breath. HENOK Garcia/jayson Source: [facility] RWHX[facility] Document Id: [id number] documented in this encounter Plan of Treatment Scheduled Procedures Name Priority Associated Diagnoses Date/Time COLONOSCOPY Diarrhea documented as of this encounter Visit Diagnoses Not on filedocumented in this encounter
--- OUTSIDE RECORDS SUMMARY | 2022-06-29 09:35 | XMS_ITS | Encounter Summary ---
:1985 Author Organization [facility] Address [address] [place] [address] Care Team Providers Name Role Phone Unavailable Primary Care Provider Unavailable Encounter Details Date Type Department Care Team Description 08/27/2011 Hospital Encounter HX [facility] [...] How often do you attend yazidi or christianity More than 4 time s [...]
--- OUTSIDE RECORDS SUMMARY | 2022-06-29 09:35 | XMS_ITS | Encounter Summary ---
:[address] 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 Thank you for notifying our office. It is the policy of this office to charge a cancellation fee for appointments cancelled without 24 hours notification. Your next scheduled appointment is: Friday, September 23, 2011 at 6:00 PM If you are unable to keep this appointment, please call the [facility] Department as soon as possible at or toll-free to reschedule or cancel. We look forward to hearing from you. Thank you, [facility] Source: [facility] Document Id: [id number] documented in this encounter Plan of Treatment Scheduled Procedures Name Priority Associated Diagnoses Date/Time COLONOSCOPY Diarrhea documented as of this encounter Visit Diagnoses Not on filedocumented in this encounter
--- OUTSIDE RECORDS SUMMARY | 2022-06-29 09:35 | XMS_ITS | Encounter Summary ---
:[address] [facility] Address [address] [place] [address] Care Team Providers Name Role Phone Unavailable Primary Care Provider Unavailable Encounter Details Date Type Department Care Team Description 11/13/2010 Hospital Encounter HX [facility] [...] How often do you attend jain or moravian More than 4 time s [...] Miscellaneous - Conversion, Historical Provider Ser - 11/13/2010 12:00 AM CDT [id number] MARIA T Juarez [address] [id number] [facility] [phone] [facility] November 13, 2010 Dear Carol: Our records indicate that you recently cancelled your appointment with Kaye Magallanes, Ph.D., L.P.. Thank you for notifying our office. Your next scheduled appointment is: Sunday, November 28, 2010 at 11:00 AM If you are unable to keep this appointment, please call the [facility] Department at your earliest convenience at or toll-free at to or cancel or reschedule. We look forward to hearing from you. Thank you, [facility] Source: [facility] Document Id: [id number] documented in this encounter Plan of Treatment Scheduled Procedures Name Priority Associated Diagnoses Date/Time COLONOSCOPY Diarrhea documented as of this encounter Visit Diagnoses Not on filedocumented in this encounter
--- OUTSIDE RECORDS SUMMARY | 2022-06-29 09:35 | XMS_ITS | Encounter Summary ---
:1985 Author Organization [facility] Address [address] [place] [address] Care Team Providers Name Role Phone Unavailable Primary Care Provider Unavailable Encounter Details Date Type Department Care Team Description 09/12/2010 Hospital Encounter [facility]X [facility] [...] often do you attend roman catholic or orthodox More than 4 time s [...]
--- OUTSIDE RECORDS SUMMARY | 2022-06-29 09:35 | XMS_ITS | Encounter Summary ---
:1985 Author Organization [facility] Address [address] [place] [address] Care Team Providers Name Role Phone Unavailable Primary Care Provider Unavailable Encounter Details Date Type Department Care Team Description 08/29/2010 Hospital Encounter HX [facility] [...] or relatives? How often do you attend baptism or christianity More than 4 time s per year 07/09/2020 services? Do you belong to any clubs or organizations No 04/19/2019 such as baptism groups, unions, fraternal or athletic groups, or [...]
--- OUTSIDE RECORDS SUMMARY | 2022-06-29 09:35 | XMS_ITS | Encounter Summary ---
:1985 Author Organization [facility] Address [address] [place] [address] Care Team Providers Name Role Phone Unavailable Primary Care Provider Unavailable Encounter Details Date Type Department Care Team Description 07/20/2011 Hospital Encounter HX [facility] [...] How often do you attend rastafari or church More than 4 time s [...]
--- OUTSIDE RECORDS SUMMARY | 2022-06-29 09:35 | XMS_ITS | Encounter Summary ---
:1985 Author Organization [facility] Address [address] [place] [address] Care Team Providers Name Role Phone Unavailable Primary Care Provider Unavailable Encounter Details Date Type Department Care Team Description 08/28/2011 [facility] Celia Schwab RRoverto Social History Tobacco Use Types Packs/Day Years [...] How often do you attend samaritan or christianity More than 4 time s [...] this encounter Miscellaneous Notes Telephone Encounter - Celia Dejesus R.N. - 08/28/2011 12:00 AM CST [id number] Appointment requested for: check my IUD Subjective Sx: pt reports having mirena IUD for 3 1/2 yrs and has never had a period or any abnormalbleeding. Pt reports bleeding began yesterday, she changed her pad 6 times throughout the day. It started out bright red and then was dark and odorous. Pt denies abd pain or other sxs. I was a little nauseated yesterday I have never been able to feel the string Pt was seen in ER last night for same sxs, examined and sent home - EMR record not updated at time of this writing. Triage advised: IUD check today Transferred to scheduling for an appt with PCP/ or team provider Source cited: Source cited; [employer]án [employer] second edition Telephone Triage for Obstetrics &Gynecology page 261, 264 Appointment scheduled: dividend clerk today Source: [facility] RWHXTRANSXRTFSYS Document Id: [id number] Electronically signed by Roland, [facility] Stevedore Hold [id number] at 01/23/2017 2:30 PM CDT documented in this encounter Plan of Treatment Scheduled Procedures Name Priority Associated Diagnoses Date/Time COLONOSCOPY Diarrhea documented as of this encounter Visit Diagnoses Not on filedocumented in this encounter
--- OUTSIDE RECORDS SUMMARY | 2022-06-29 09:35 | XMS_ITS | Encounter Summary ---
:1985 Author Organization [facility] Address [address] [place] [address] Care Team Providers Name Role Phone Unavailable Primary Care Provider Unavailable Encounter Details Date Type Department Care Team Description 09/26/2010 Hospital Encounter HX [facility] [...] How often do you attend christianity or advent More than 4 time s [...]
--- OUTSIDE RECORDS SUMMARY | 2022-06-29 09:35 | XMS_ITS | Encounter Summary ---
:1985 Author Organization [facility] Address [address] [place] [address] Care Team Providers Name Role Phone Unavailable Primary Care Provider Unavailable Encounter Details Date Type Department Care Team Description 10/10/2010 Hospital Encounter [facility]X [facility] [...] or relatives? How often do you attend caodaism or oriental orthodox More than 4 time s per year 07/09/2020 services? Do you belong to any clubs or organizations No 04/19/2019 such as caodaism groups, unions, fraternal or athletic groups, or [...]
--- OUTSIDE RECORDS SUMMARY | 2022-06-29 09:35 | XMS_ITS | Encounter Summary ---
:1985 Author Organization [facility] Address [address] [place] [address] Care Team Providers Name Role Phone Unavailable Primary Care Provider Unavailable Encounter Details Date Type Department Care Team Description 08/28/2011 Hospital Encounter HX NO MAPPING Nelson Bernal M.D. [address] [place] [phone] (Wo rk) Social History Tobacco [...] How often do you attend gnosticism or advent More than 4 time s [...]
--- OUTSIDE RECORDS SUMMARY | 2022-06-29 09:35 | XMS_ITS | Encounter Summary ---
:1985 Author Organization [facility] Address [address] [place] [address] Care Team Providers Name Role Phone Unavailable Primary Care Provider Unavailable Encounter Details Date Type Department Care Team Description 10/24/2010 Hospital Encounter HX [facility] [...] How often do you attend mandaeism or cheondoism More than 4 time s [...]
--- OUTSIDE RECORDS SUMMARY | 2022-06-29 09:35 | XMS_ITS | Encounter Summary ---
:1985 Author Organization [facility] Address [address] [place] [address] Care Team Providers Name Role Phone Unavailable Primary Care Provider Unavailable Encounter Details Date Type Department Care Team Description 08/17/2011 Hospital Encounter HX [facility] Provider, Quinn parker Social History Tobacco Use Types Packs/Day Years [...] or relatives? How often do you attend mormon or hinduism More than 4 time s per year 07/09/2020 services? Do you belong to any clubs or organizations No 04/19/2019 such as mormon groups, unions, fraternal or athletic groups, or [...] Miscellaneous - Conversion, Historical Provider Ser - 08/17/2011 12:00 AM HOME MANAGER 11270-YIA LETTER Carol Juarez [facility] [address] [facility] [phone] [facility] August 17, 2011 Dear Carol: Our records indicate that you recently cancelled your appointment with Kaye Magallanes, Ph.D., L.P.. Thank you for notifying our office. Your next scheduled appointment is: August at 3:00 PM If you are unable to keep this appointment, please call the [facility] Department at your earliest convenience at or toll-free at to or cancel or reschedule. We look forward to hearing from you. Thank you, [facility] Source: [facility] Document Id: [id number] documented in this encounter Plan of Treatment Scheduled Procedures Name Priority Associated Diagnoses Date/Time COLONOSCOPY Diarrhea documented as of this encounter Visit Diagnoses Not on filedocumented in this encounter
--- OUTSIDE RECORDS SUMMARY | 2022-06-29 09:35 | XMS_ITS | Encounter Summary ---
:1985 Author Organization [facility] Address [address] [place] [address] Care Team Providers Name Role Phone Unavailable Primary Care Provider Unavailable Encounter Details Date Type Department Care Team Description 08/11/2011 Hospital Encounter HX [facility] [...] How often do you attend bahai or quaker More than 4 time s per year [...] Miscellaneous Notes Miscellaneous - Marisol Couch - 08/11/2011 12:00 AM CST [id number]-RHA MARIA T Dowell [address] [phone] [facility] August 11, 2011 Dear Carol: Our records indicate that you recently cancelled your appointment with Kaye Magallanes, Ph.D., L.P.. Thank you for notifying our office. Your next scheduled appointment is: Thursday, August 18, 2011 at 10:00 AM If you are unable to keep this appointment, please call the [facility] Department at your earliest convenience at or toll-free at to or cancel or reschedule. We look forward to hearing from you. Thank you, [facility] Source: [facility] Document Id: [id number] Electronically signed by Conversion, [facility] Hot Air Furnace Installer Repairer [id number] at 01/24/2017 1:37 AM CDT documented in this encounter Plan of Treatment Scheduled Procedures Name Priority Associated Diagnoses Date/Time COLONOSCOPY Diarrhea documented as of this encounter Visit Diagnoses Not on filedocumented in this encounter
--- OUTSIDE RECORDS SUMMARY | 2022-06-29 09:35 | XMS_ITS | Encounter Summary ---
:1985 Author Organization [facility] Address [address] [place] [address] Care Team Providers Name Role Phone Unavailable [...] How often do you attend presybeterian or adventism More than 4 time s per year [...]
--- OUTSIDE RECORDS SUMMARY | 2022-06-29 09:35 | XMS_ITS | Encounter Summary ---
:1985 Author Organization [facility] Address [address] [place] [address] Care Team Providers Name Role Phone Unavailable Primary Care Provider Unavailable Encounter Details Date Type Department Care Team Description 09/29/2010 Hospital Encounter HX [facility] Yamel Koch M.D. [address] [place] [address] (Wo rk) Social History Tobacco [...] documented as of this encounter Progress Notes Venu Giang M.D. - 09/29/2010 9:00 AM CST [id number] Chief Complaint: Chief Complaint Patient presents with Depression 1 month recheck following med change The patient complains of dysthymic disorder of moderate severity for several months. The patient describes the symptoms as anhedonia, sleeping changes, trouble concentrating. The patient describes modifying or exacerbating factors as: none. The patient has attempted the following treatments: Wellbutrin and Celexa. The patient denies any other aggravating or alleviating factors or associated symptoms.She denies any suicidal thoughts. She is tired all the time. Patient Active Problem List Diagnoses Code HEADACHE 784.0 Dysthymic disorder 300.4 Outpatient prescriptions marked as taking for the 09/29/10 encounter (Office Visit) with KOTA GIANG.: buPROPion (WELLBUTRIN SR) 150 MG 12 hr tablet Take 1 tablet by mouth 2 times daily. Disp: 180 tabletRfl: 1 MIRENA 20 MCG/24HR IU IUD placed 02/06/08 Disp: 1 Rfl: 0 IBUPROFEN 200 MG OR TABS 3-4 tabs prn Disp: Rfl: Allergies Allergen Reactions No Known Allergies Review Of Systems (other than mentioned above) Constitutional: negative Cardiovascular: negative Psych: as above. PHYSICAL EXAMINATION: Blood pressure 104/80, pulse 72, temperature 97.2 ??F (36.2 ??C), temperature source Temporal, weight 120.294 kg (265 lb 3.2 oz). General: Patient is well nourished, alert and oriented in no acute distress. Psych: depressed mood and flat affect. Lungs clear to auscultation. Good air movement bilaterally without rales, wheezes, or rhonchi. Cardiac: normal S1 and S2 without any murmur, gallops or rubs. No carotid bruits. No edema or cyanosis. Abdomen: bowel sounds present. Soft and non-tender. No palpable masses or hepatosplenomegaly. ASSESSMENT/PLAN: 1. Dysthymic disorder (300.4) DEPRESSION SCREENING (RW), venlafaxine (EFFEXOR- XR) 75 MG 24 hr capsule Not under control. Wean of Wellbutrin. Start Effexor in 1 week. follow up in 4-6 weeks. Today's Depression Rating was 13, which is improved. Source: [facility] RWMCHXTRANSXRTFSYS Document Id: [id number] Electronically signed by Roland, [facility] Personal Financial Counselor [id number] at 01/23/2017 9:40 PM CDT documented in this encounter Plan of Treatment Scheduled Procedures Name Priority Associated Diagnoses Date/Time COLONOSCOPY Diarrhea documented as of this encounter Visit Diagnoses Not on filedocumented in this encounter
--- OUTSIDE RECORDS SUMMARY | 2022-06-29 09:36 | XMS_ITS | Encounter Summary ---
:1985 Author Organization [facility] Address [address] [place] [address] Care Team Providers Name Role Phone Unavailable Primary Care Provider Unavailable Encounter Details Date Type Department Care Team Description 08/28/2010 Hospital Encounter [facility]X [facility] Yamel Koch M.D. [address] [place] [address] (Wo rk) Social History Tobacco [...] How often do you attend mandaeism or moravian More than 4 time s [...] encounter Progress Notes Venu Giang M.D. - 08/28/2010 8:30 AM CST [id number] Chief Complaint: Chief Complaint Patient presents with Depression recheck/does feel any change with med The patient complains of depression of moderate severity for several months. The patient describes the symptoms as feeling depressed and anhedonia. The patient describes modifying or exacerbating factors as: none. The patient has attempted the following treatments: Celexa, but it makes her tired. The patient denies any other aggravating or alleviating factors or associated symptoms. Patient Active Problem List Diagnoses Code HEADACHE 784.0 Dysthymic disorder 300.4 Outpatient prescriptions marked as taking for the 08/28/10 encounter (Office Visit) with KOTA GAING.: citalopram (CELEXA) 20 MG tablet Take 1 tablet by mouth daily. Disp: 90 tablet Rfl: 1 MIRENA 20 MCG/24HR IU IUD placed 02/06/08 Disp: 1 Rfl: 0 IBUPROFEN 200 MG OR TABS 3-4 tabs prn Disp: Rfl: Allergies Allergen Reactions No Known Allergies Review Of Systems (other than mentioned above) Constitutional: fatigue Psych: as above. PHYSICAL EXAMINATION: Blood pressure 120/80, pulse 104, temperature 96.9 ??F (36.1 ??C), temperature source Temporal, height 1.575 m (5' 2), weight 120.838 kg (266 lb 6.4 oz). General: Patient is well nourished, alert and oriented in no acute distress. Psych: depressed mood and affect. ASSESSMENT/PLAN: 1. Dysthymic disorder (300.4) DEPRESSION SCREENING (RW), buPROPion (WELLBUTRIN SR) 150 MG 12 hr tablet Not under control. PHQ-9 score of 16. Discontinue Celexa. Start Wellbutrin. follow up in 1 month. Source: [facility] RWMCHXTRANSXRTFSYS Document Id: [id number] Electronically signed by Conversion, [facility] Glazier Stained Glass [id number] at 01/24/2017 12:51 AM CDT documented in this encounter Plan of Treatment Scheduled Procedures Name Priority Associated Diagnoses Date/Time COLONOSCOPY Diarrhea documented as of this encounter Visit Diagnoses Not on filedocumented in this encounter
--- OUTSIDE RECORDS SUMMARY | 2022-06-29 09:36 | XMS_ITS | Encounter Summary ---
:1985 Author Organization [facility] Address [address] [place] [address] Care Team Providers Name Role Phone Unavailable Primary Care Provider Unavailable Encounter Details Date Type Department Care Team Description 10/30/2008 Hospital En[facility] Casi Vo M.D. [address] [place], [place] [phone] (Wo rk) Social History [...] How often do you attend shinto or jain More than 4 time s [...] documented as of this encounter Progress Notes Ann Grove M.D. - 10/30/2008 2:30 PM CDT [id number] Carol is a 22 year old here for her annual exam. 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 Lining Maker HX: no abnormal paps. Her menses are every 3-5 months, no cramps, not heavy, no bleeding betweencycles HPI: No concerns, happy with Mirena placed 01/28. PAST MEDICAL HISTORY: Past Medical History Diagnosis Date Transient Hypertension of , Antepartum 12/29/07 Hospitalized Body Mass Index 40 and Over, Adult Oligohydramnios, Delivered 01/06/08 Hospitalized Mild or Unspecified Pre-Eclampsia, with Delivery Infection of Amniotic Cavity, Delivered Body Mass Index 40 and Over, Adult PAST SURGICAL HISTORY: Past Surgical History Procedure Date Full rout obste care,vaginal deliv 01/03/08 baby boy CURRENT MEDICATIONS: Current outpatient prescriptions Medication Sig MIRENA 20 MCG/24HR IU IUD placed 02/06/08 IBUPROFEN 200 MG OR TABS 3-4 tabs prn ALLERGIES: No known allergies FAMILY HX: Family History Problem Relation Diabetes No family hx of Hypertension Maternal Grandmother Breast CA No family hx of Cancer Maternal Grandfather throat Cancer Maternal Grandmother skin Respiratory Sister cystic fibrosis ROS: REVIEW OF SYSTEMS: NEUROLOGIC: Negative, headaches with EYES: Negative ENT: Negative GI: Negative, rare GERD, not daily BREAST: Negative : Negative GUEST EXPERIENCE REPRESENTATIVE: Negative CV: Negative PULMONARY: Negative MUSCULOSKELETAL: Negative PSYCH: Negative SOCIAL HISTORY: History Social History Marital Status: Single Spouse Name: N/A Number of Children: N/A Years of Education: 13 Occupational History [employer] Social History Main Topics Tobacco Use: Yes -- 0.3 packs/day for 3 years Last Attempt to Quit: 07/28/2007 second hand smoke at home, stepdad smokes outside Alcohol Use: Yes Drug Use: No Sexually Active: Yes -- Male partner(s) Other Topics Concern Blood Transfusions No Caffeine Concern No Sleep Concern No Stress Concern No Weight Concern Yes Special Diet No Exercise Yes Seat Belt Yes Self-exams No Social History Narrative No narrative on file HEALTH HABITS: calcium intake mild, last dTAP 2007, last lipids N/A, last pap last yr and was normal, last eye exam was yearly, last dental exam was up to date. PHYSICAL EXAM: This is a well-developed, well-nourished female in no apparent distress. ENT: ENT exam normal, no neck nodes or sinus tenderness. NECK: Supple, no adenopathy and thyroid normal. LUNGS: Normal - Clear to auscultation without rales, rhonchi, or wheezing.. HEART: Regular rate, rhythm and No murmur, rub, gallop. BREASTS: No masses, skin, nipple or axillary changes. ABDOMEN: Benign, Soft, flat, non-tender, No masses, organomegaly, No inguinal nodes and Bowel soundsnormoactive. PELVIC EXAM: Lymph: no enlarged groin nodes External genitalia: normal development, normal BUS, no lesions Perineum: normal skin, no lesions, good support Urethra meatus: normal , no lesion or caruncle Urethra: normal, nontender Bladder: nontender, no masses, not enlarged Vagina:normal mucosa and ruggae, no lesions not atrophic Cervix:multiparous and IUD string 3 cm from os, IUD not palpable and no lesions Uterus: smooth, firm, mobile, without irregularities anteverted Adnexa: non tender, 2 x 3 bilateral without abnormality RV: not indicated Rectum: no hemorrhoids, no bleeding EXTREMITIES: Normal. NEUROLOGIC: Normal. SKIN: scattered benign nevi ASSESSMENT AND PLAN: Annual Lining Maker exam. Declines Chl screen (monogamous) Health maintenance includes: pap smear done today and smoking cessation. [facility] Document Id: [id number] Electronically signed by Roland, [facility] Financial Auditor [id number] at 01/24/2017 4:40 PM CDT documented in this encounter Miscellaneous Notes Miscellaneous - Conversion, Historical Provider Ser - 10/30/2008 2:30 PM CDT [id number] Carol Juarez [address] [place] [phone] November 01, 2008 Dear Carol Juarez, I am happy to inform you that your recent cervical cancer screening test (PAP smear) was normal. Preventative screening such as this helps insure your health for years to come. Congratulations for taking care of yourself! Please contact my office if you have any further questions. [phone]. Sincerely, Ann Grove M.D. OBSTETRICS/GYNECOLOGY [facility] Source: [facility] Document Id: [id number] documented in this encounter Plan of Treatment Scheduled Procedures Name Priority Associated Diagnoses Date/Time COLONOSCOPY Diarrhea documented as of this encounter Visit Diagnoses Not on filedocumented in this encounter
--- OUTSIDE RECORDS SUMMARY | 2022-06-29 09:36 | XMS_ITS | Encounter Summary ---
:1985 Author Organization [facility] Address [address] [place] [address] Care Team Providers Name Role Phone Unavailable Primary Care Provider Unavailable Encounter Details Date Type Department Care Team Description 03/27/2009 Hospital Encounter [facility] Provider, [facility] Social History Tobacco Use Types Packs/Day Years [...] or relatives? How often do you attend synagogue or shinto More than 4 time s per year 07/09/2020 services? Do you belong to any clubs or organizations No 04/19/2019 such as synagogue groups, unions, fraternal or athletic groups, or [...]
--- OUTSIDE RECORDS SUMMARY | 2022-06-29 09:36 | XMS_ITS | Encounter Summary ---
:1985 Author Organization [facility] Address [address] [place] [address] Care Team Providers Name Role Phone Unavailable Primary Care Provider Unavailable Encounter Details Date Type Department Care Team Description 02/22/2009 Hospital Encounter HX NO MAPPING Rizwan Dean M.D. [address] [place], [place] [phone] (Wo rk) Social History [...] How often do you attend religion or pentecostal More than 4 time s [...]
--- OUTSIDE RECORDS SUMMARY | 2022-06-29 09:36 | XMS_ITS | Encounter Summary ---
:1985 Author Organization [facility] Address [address] [place] [address] Care Team Providers Name Role Phone Unavailable Primary Care Provider Unavailable Encounter Details Date Type Department Care Team Description 02/17/2010 Hospital Encounter HX NO MAPPING Berny Garcia M.D. [address] [place], [place] [phone] (Wo rk) Social History [...] How often do you attend hindu or methodist More than 4 time s [...]
--- OUTSIDE RECORDS SUMMARY | 2022-06-29 09:36 | XMS_ITS | Encounter Summary ---
:1985 Author Organization [facility] Address [address] [place] [address] Care Team Providers Name Role Phone Unavailable Primary Care Provider Unavailable Encounter Details Date Type Department Care Team Description 03/24/[address] [facility] Yamel Koch M.D. [address] [place] [address] (Wo rk) Social History Tobacco [...] or relatives? How often do you attend pentecostalism or mandaeism More than 4 time s per year 07/09/2020 services? Do you belong to any clubs or organizations No 04/19/2019 such as pentecostalism groups, unions, fraternal or athletic groups, or [...] encounter Progress Notes Venu Giang M.D. - 03/24/2010 11:00 AM CDT [id number] Chief Complaint: Chief Complaint Patient presents with Derm Problem itchy rash on tops of feet for approx 2 days Patient Request for Note/Letter for school The patient complains of a rash on her bilateral feet of moderate severity for 2 days. The patient describes the symptoms as itchy, mild pain. The patient describes modifying or exacerbating factors as: none. The patient has attempted the following treatments: ibuprofen and benadryl haven't helped. The patient denies any other aggravating or alleviating factors or associated symptoms. Patient Active Problem List Diagnoses Code HEADACHE 784.0 Outpatient prescriptions marked as taking for the 03/24/10 encounter (Office Visit) with KOTA GIANG.: MIRENA 20 MCG/24HR IU IUD placed 02/06/08 Disp: 1 Rfl: 0 IBUPROFEN 200 MG OR TABS 3-4 tabs prn Disp: Rfl: Allergies Allergen Reactions No Known Allergies Review Of Systems (other than mentioned above) Constitutional: negative PHYSICAL EXAMINATION: Blood pressure 128/80, pulse 68, temperature 97.7 ??F (36.5 ??C), temperature source Temporal, weight 242 lb 12.8 oz (110.133 kg). General: Patient is well nourished, alert and oriented in no acute distress. Normal mood and affect. Skin: bilateral feet have erythematous papules without fluctuance. 2 small vesicles were noted as well. ASSESSMENT/PLAN: 1. RASH (782.1R) TRIAMCINOLONE ACETONIDE 0.1 % EX CREA TRIAMCINOLONE CREAM. Uncertain etiology. Work note was given. Avoid scratching itchy areas. Call or return if worsening or spreading. Source: [facility] RWMCHXTRANSXRTFSYS Document Id: [id number] Electronically signed by Conversion, [facility] Outside Event Sales Specialist [id number] at 01/24/2017 2:27 PM CDT documented in this encounter Miscellaneous Notes Miscellaneous - Venu Giang M.D. - 03/24/2010 11:00 AM CDT [id number] [facility] [address] [facility], [address] 03/24/2010 Carol Juarez TO WHOM IT MAY CONCERN: Carol Juarez was seen on 03/24/2010. Please excuse her 03/24/2010 due to a medical condition. She may return 03/25/2010 without restrictions. Cordially, Venu Giang M.D. FAMILY MEDICINE [facility] Source: [facility] RWHXTRANSXRTFSYS Document Id: [id number] Electronically signed by Conversion, [facility] Outside Event Sales Specialist [id number] at 01/24/2017 2:27 PM CDT documented in this encounter Plan of Treatment Scheduled Procedures Name Priority Associated Diagnoses Date/Time COLONOSCOPY Diarrhea documented as of this encounter Visit Diagnoses Not on filedocumented in this encounter
--- OUTSIDE RECORDS SUMMARY | 2022-06-29 09:36 | XMS_ITS | Encounter Summary ---
:1985 Author Organization [facility] Address [address] [place] [address] Care Team Providers Name Role Phone Unavailable Primary Care Provider Unavailable Encounter Details Date Type Department Care Team Description 08/01/2010 Hospital Encounter HX [facility] [...] How often do you attend alevism or scientology More than 4 time s [...]
--- OUTSIDE RECORDS SUMMARY | 2022-06-29 09:36 | XMS_ITS | Encounter Summary ---
:1985 Author Organization [facility] Address [address] [place] [address] Care Team Providers Name Role Phone Unavailable Primary Care Provider Unavailable Encounter Details Date Type Department Care Team Description 02/04/2010 Hospital Encounter [facility] Provider, [facility] Social History Tobacco Use Types Packs/Day Years [...] How often do you attend samaritan or anabaptism More than 4 time s [...] as of this encounter Progress Notes Venu Yousif M.D. - 02/04/2010 11:00 AM CDT [id number] Quick Note: Nursing: please call patient to inform her the wet prep and ultrasound were both normal. Thanks. Source: [facility] RWMCHXTRANSXSYS Document Id: [id number] documented in this encounter Plan of Treatment Scheduled Procedures Name Priority Associated Diagnoses Date/Time COLONOSCOPY Diarrhea documented as of this encounter Visit Diagnoses Not on filedocumented in this encounter
--- OUTSIDE RECORDS SUMMARY | 2022-06-29 09:36 | XMS_ITS | Encounter Summary ---
:1985 Author Organization [facility] Address [address] [place] [address] Care Team Providers Name Role Phone Unavailable Primary Care Provider Unavailable Encounter Details Date Type Department Care Team Description 02/04/2010 Hospital Encounter HX NO MAPPING Venu Yousif M.D. [address] [place], [place] [phone] (Wo rk) Social History [...] How often do you attend christian or anabaptist More than 4 time s [...]
--- OUTSIDE RECORDS SUMMARY | 2022-06-29 09:36 | XMS_ITS | Encounter Summary ---
:1985 Author Organization [facility] Address [address] [place] [address] Care Team Providers Name Role Phone Unavailable Primary Care Provider Unavailable Encounter Details Date Type Department Care Team Description 06/11/2010 Hospital Encounter HX [facility] Yamel Koch M.D. [address] [place] [address] (Wo rk) Social History Tobacco [...] How often do you attend quaker or scientology More than 4 time s [...] encounter Progress Notes Keith Giang M.D. - 06/11/2010 2:45 PM CDT [id number] Chief Complaint: Chief Complaint Patient presents with Mass found a mass on right breast on 06/10/10 close to under arm side The patient complains of a lump on her right breast of moderate severity since yesterday. The patient describes the symptoms as painful and red. The patient describes modifying or exacerbating factors as: none. The patient has attempted the following treatments: none. The patient denies any other aggravating or alleviating factors or associated symptoms. No family history of breast cancer. No nipple discharge. Patient Active Problem List Diagnoses Code HEADACHE 784.0 Outpatient prescriptions marked as taking for the 06/11/10 encounter (Office Visit) with KEITH GIANG: sumatriptan (IMITREX) 100 MG tablet Take 1 tablet by mouth at onset of headache for migraine. May repeat in 2 hours if needed: max 2/day; average number of headaches monthly 15 Disp: 9 tablet Rfl: 11 prochlorperazine (COMPAZINE) 10 MG tablet Take 1 tablet by mouth every 6 hours as needed for nausea.Disp: 30 tablet Rfl: 1 MIRENA 20 MCG/24HR IU IUD placed 02/06/08 Disp: 1 Rfl: 0 IBUPROFEN 200 MG OR TABS 3-4 tabs prn Disp: Rfl: Allergies Allergen Reactions No Known Allergies Review Of Systems (other than mentioned above) Constitutional: negative for fevers. Breast: as above. No nipple discharge. CV: negative PHYSICAL EXAMINATION: Blood pressure 118/70, pulse 80, temperature 98.4 ??F (36.9 ??C), temperature source Temporal, weight 263 lb 11.2 oz (119.614 kg). General: Patient is well nourished, alert and oriented in no acute distress. Normal mood and affect. Neck: supple, no adenopathy, and thyroid normal size, non-tender, without nodularity. Chest wall normal to inspection and palpation. Good excursion bilaterally. Lungs clear to auscultation. Good air movement bilaterally without rales, wheezes, or rhonchi. Cardiac: normal S1 and S2 without any murmur, gallops or rubs. No carotid bruits. No edema or cyanosis. Breasts are symmetric. No dominant, discrete, fixed or suspicious masses are noted. No nipple changes or axillary nodes. Self exam is taught and encouraged. Skin: on her right breast there is a painful, firm area of induration and erythema with central scab. ASSESSMENT/PLAN: 1. Cellulitis (682.9M) cephALEXin (KEFLEX) 500 MG capsule New problem. Keflex. Warm packs. follow up if not improving in 1-2 days. Return if any fevers, red streaking, etc. Avoid squeezing or trying to pop this. Source: [facility] RWHXTRANSXRTFSYS Document Id: [id number] Electronically signed by Conversion, [facility] Dev Ops Engineer [id number] at 01/24/2017 12:32 PM CDT documented in this encounter Plan of Treatment Scheduled Procedures Name Priority Associated Diagnoses Date/Time COLONOSCOPY Diarrhea documented as of this encounter Visit Diagnoses Not on filedocumented in this encounter
--- OUTSIDE RECORDS SUMMARY | 2022-06-29 09:36 | XMS_ITS | Encounter Summary ---
:1985 Author Organization [facility] Address [address] [place] [address] Care Team Providers Name Role Phone Unavailable Primary Care Provider Unavailable Encounter Details Date Type Department Care Team Description 02/04/2010 Hospital Encounter [facility] Yamel Koch M.D. [address] [place] [address] (Wo rk) Social History Tobacco [...] How often do you attend gnosticist or caodaism More than 4 time s [...] encounter Progress Notes Keith Giang M.D. - 02/04/2010 9:00 AM CDT [id number] Chief Complaint Patient presents with Abdominal Pain low abd. pain for a few weeks, noticed when she wiped yesterday there was blood, hasIUD SUBJECTIVE: Carol Juarez is a 24 year old female who complains of lower abdominal pain for 3 weeks, without flank pain, fever, chills, or abnormal vaginal discharge. She did have a small amount of of blood with wiping after urinating yesterday. She denies any dysuria. She has a Mirena IUD. No associated diarrhea or constipation. She last had intercourse 3 months ago. No new sexual partners. Outpatient prescriptions marked as taking for the 02/04/10 encounter (Office Visit) with KEITH GIANG: MIRENA 20 MCG/24HR IU IUD placed 02/06/08 Disp: 1 Rfl: 0 IBUPROFEN 200 MG OR TABS 3-4 tabs prn Disp: Rfl: ROS: negative for fevers or flank pain. positive for headache OBJECTIVE: Blood pressure 118/80, pulse 80, temperature 97.6 ??F (36.4 ??C), temperature source Temporal, height 5' 2 (1.575 m), weight 233 lb 6.4 oz (105.87 kg). Appears well, in no apparent distress. Vital signs as noted above. The abdomen is soft with mild tenderness throughout several areas of her abdomen, no guarding, mass, rebound or organomegaly. No CVA tenderness or inguinal adenopathy noted. Vagina and vulva are normal; no discharge is noted. Cervix normal with IUD string protruding from the cervix. Uterus anteverted and mobile, normal in size and shape without tenderness. Adnexa normal insize without masses or tenderness. Exam chaperoned by Nurse. No blood noted on exam today. Urinalysis: Component Latest Ref Rng 02/04/2010 COLOR (U) Yellow APPEARANCE (U) Clear GLUCOSE URINE Low: NEG mg/dL Negative BILIRUBIN URINE Low: NEG Negative KETONES URINE Low: NEG mg/dL Negative SPECIFIC GRAVITY (U) 1.003 - 1.035 1.015 BLOOD URINE Low: NEG Small (A) PH URINE 5.0 - 7.0 pH 6.0 PROTEIN ALBUMIN URINE Low: NEG mg/dL Negative UROBILINOGEN MG/DL 0.0 - 2.0 mg/dL Negative NITRITE (U) Low: NEG Negative LEUKOCYTE ESTERASE URINE Low: NEG Small (A) SOURCE Midstream Urine RBC URINE 0 - 2 /HPF <1 WBC URINE 0 - 2 /HPF 2 BACTERIA URINE Low: NEG /HPF Few (A) SQUAMOUS EPITHELIAL HPF RUIURINE 0 - 1 /HPF 3 (H) MUCOUS URINE Low: NEG /LPF Present (A) ASSESSMENT: 1. Gross Hematuria (599.71) URINE MACROSCOPIC REFLEX 2. Vaginal Discharge (623.5A) A WET PREP 3. Pelvic Pain (625.9D) SONO PELVIS COMPLETE Further workup is needed with an ultrasound of pelvis. Will evaluate IUD placement as well. Wet prep reviewed and normal. Source: [facility] RWHXTRANSXRTFSYS Document Id: [id number] Electronically signed by Conversion, [facility] Homeopathic Doctor [id number] at 01/24/2017 11:08 AM CDT documented in this encounter Plan of Treatment Scheduled Procedures Name Priority Associated Diagnoses Date/Time COLONOSCOPY Diarrhea documented as of this encounter Visit Diagnoses Not on filedocumented in this encounter
--- OUTSIDE RECORDS SUMMARY | 2022-06-29 09:36 | XMS_ITS | Encounter Summary ---
:1985 Author Organization [facility] Address [address] [place] [address] Care Team Providers Name Role Phone Unavailable Primary Care Provider Unavailable Encounter Details Date Type Department Care Team Description 05/19/[address] [facility] INPT/OBSRV Chon Babin M.D. [address] [place], [place] [id number] (Wo rk) Social History Tobacco Use Types [...] How often do you attend methodist or hindu More than 4 time s [...]
--- OUTSIDE RECORDS SUMMARY | 2022-06-29 09:36 | XMS_ITS | Encounter Summary ---
:1985 Author Organization [facility] Address [address] [place] [address] Care Team Providers Name Role Phone Unavailable Primary Care Provider Unavailable Encounter Details Date Type Department Care Team Description 07/15/2010 Hospital Encounter HX [facility] Provider, [facility] Social History Tobacco Use Types Packs/Day Years [...] How often do you attend adventism or mandaen More than 4 time s [...] this encounter Miscellaneous Notes Telephone Encounter - Conversion, Historical Provider Ser - 07/15/2010 12:00 AM CST [id number] TELEPHONE TRIAGE ENCOUNTER FORM Date: 07/15/2010 PCP: Venu Yousif MD, MD Patient Name: Carol Juarez Gender: female : 1985 Age: [age] year old Time: 4:45 PM Phone Numbers: [phone] (home) Pharmacy: [facility] ASSESSMENT Presenting Problem: Depression Subjective/objective: Patient is calling to schedule an appointment with for Depression. States I feel unhappy all of the time. Cried for several hours last night. Is in a relationship withher son's father that is not promoting positive feed back. Patient denies thoughts of harm to self or others. Onset: unchanged Duration: several months Associated Sx: Decreased activity level Problem list reviewed: YES Recent History: Yes - What was it?: On-going feelings of sadness. Recent Illness: No Allergies verified: N/A or not addressed Precipitated by: Unknown origin Med list reviewed: YES Alleviated by: N/A Immunosuppressed:N/A or not addressed Conclusion / Primary Problem: Depression Protocol(s) Consulted: Per Nursing Judgement PLAN / INTERVENTION Disposition: Referred to clinic - within 24 hours Caller verbalizes understanding of disposition? YES Caller agrees to plan? Yes EVALUATION / FOLLOW-UP Advised patient to call back or seek treatment in UC/ER if symptoms worsen in any way prior to scheduled appointment time. Source: [facility] RWHXTRANSXRTFSYS Document Id: [id number] documented in this encounter Plan of Treatment Scheduled Procedures Name Priority Associated Diagnoses Date/Time COLONOSCOPY Diarrhea documented as of this encounter Visit Diagnoses Not on filedocumented in this encounter
--- OUTSIDE RECORDS SUMMARY | 2022-06-29 09:36 | XMS_ITS | Encounter Summary ---
:1985 Author Organization [facility] Address [address] [place] [address] Care Team Providers Name Role Phone Unavailable Primary Care Provider Unavailable Encounter Details Date Type Department Care Team Description 10/03/2008 Hospital Encounter HX [facility] Provider, [facility] Social History Tobacco Use Types [...] How often do you attend gnosticist or rastafarian More than 4 time s [...] documented as of this encounter Progress Notes Conversion, Historical Provider Ser - 10/03/2008 2:50 PM CST [id number] SUBJECTIVE: Carol Juarez is a 22 year old female who presents to the clinic today for a rash. Onset of rash was 1 month(s) ago. Rash is still present. Location of the rash: L hand. Quality/symptoms of rash: painful, redness. States that there was a lot of drainage and pus originaly, but now it is just scabbed over with redness surrounding the scab. Has been using peroxide and neosporin with little improvement. Symptoms are moderate and rash seems to be stable. Previous history of a similar rash? 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 Associated symptoms include: nothing. Past Medical History Diagnosis Date Transient Hypertension of , Antepartum 12/29/07 Hospitalized Body Mass Index 40 and Over, Adult Oligohydramnios, Delivered 01/06/08 Hospitalized Mild or Unspecified Pre-Eclampsia, with Delivery Infection of Amniotic Cavity, Delivered Body Mass Index 40 and Over, Adult Current outpatient prescriptions Medication Sig IBUPROFEN 200 MG OR TABS 3-4 tabs prn KEFLEX 500 MG OR CAPS TAKE ONE CAPSULE 4 TIMES DAILY for 10 days MOTRIN 600 MG OR TABS 1 TABLET PO q 6 hrs PRN pain ZANTAC OR 1 CAPSULE AT BEDTIME History Tobacco Use Yes -- 0.3 packs/day for 3 years Last Attempt to Quit: 07/28/2007 second hand smoke at home, stepdad smokes outside ROS: CONSTITUTIONAL:NEGATIVE for fever, chills, change in weight INTEGUMENTARY/SKIN: POSITIVE for lesions on hand ENT/MOUTH: NEGATIVE for ear, mouth and throat problems RESP:NEGATIVE for significant cough or SOB CV: NEGATIVE for chest pain, palpitations or peripheral edema EXAM: BP 128/80 Pulse 100 Temp (Src) 96.9 ??F (36.1 ??C) (Temporal) Ht 5' 1.75 (1.568 m) Wt 261 lb 2 oz (118.446 kg) LMP UNKNOWN ? No GENERAL: alert, no acute distress. SKIN: Rash description: Distribution: localized Location: L hand Color: red with healing area in the middle, Lesion type: maculopapular, round with tenderness and inflammation GENERAL APPEARANCE: healthy, alert and no distress EYES: EOMI, PERRL, conjunctiva clear NECK: supple, non-tender to palpation, no adenopathy noted RESP: lungs clear to auscultation - no rales, rhonchi or wheezes CV: regular rates and rhythm, normal S1 S2, no murmur noted ASSESSMENT: Furuncle PLAN: 680.4E Furuncle of Finger (primary encounter diagnosis) Plan: KEFLEX 500 MG OR CAPS- take 1 4 x daily for 10 days. There were no lesions to culture today, however I encouraged her to RTC if she develops another lesion so we can culture it. Follow up with primary care provider if no improvement. [facility] Document Id: [id number] documented in this encounter Plan of Treatment Scheduled Procedures Name Priority Associated Diagnoses Date/Time COLONOSCOPY Diarrhea documented as of this encounter Visit Diagnoses Not on filedocumented in this encounter
--- OUTSIDE RECORDS SUMMARY | 2022-06-29 09:36 | XMS_ITS | Encounter Summary ---
:1985 Author Organization [facility] Address [address] [place] [address] Care Team Providers Name Role Phone Unavailable Primary Care Provider Unavailable Encounter Details Date Type Department Care Team Description 07/23/2010 Hospital Encounter HX [facility] [...] How often do you attend baptism or jehovah's witness More than 4 time [...]
--- OUTSIDE RECORDS SUMMARY | 2022-06-29 09:36 | XMS_ITS | Encounter Summary ---
:1985 Author Organization [facility] Address [address] [place] [address] Care Team Providers Name Role Phone Unavailable Primary Care Provider Unavailable Encounter Details Date Type Department Care Team Description 06/02/[address] [facility] Ysabel Reyes R.NBrittaney [address] [address] Social History Tobacco Use Types [...] How often do you attend jainism or holiness More than 4 time s [...] Telephone Encounter - Ailyn Reyes R.N. - 06/02/2010 12:00 AM CDT [id number] Situation/What is the patients concern/need: N/v diarrhea, since Liang. Migraine x one wk. Clinical Background/Recent Intervention: Visit with Md given. Nurse had recommended pt try otc anti diahrreal med and to push fluids. 1 tablespoon of water q 10 min. Pt wanting to be seen for headaches which pt stated is a Migraine. Pt has hxof these. . Recommendation/Patient Request: Apt with provider for headache. Source: [facility] Document Id: [id number] Electronically signed by Conversion, [facility] Tool Shaper Setup Operator [id number] at 01/24/2017 12:32 PM CDT documented in this encounter Plan of Treatment Scheduled Procedures Name Priority Associated Diagnoses Date/Time COLONOSCOPY Diarrhea documented as of this encounter Visit Diagnoses Not on filedocumented in this encounter
--- OUTSIDE RECORDS SUMMARY | 2022-06-29 09:36 | XMS_ITS | Encounter Summary ---
:1985 Author Organization [facility] Address [address] [place] [address] Care Team Providers Name Role Phone Unavailable Primary Care Provider Unavailable Encounter Details Date Type Department Care Team Description 06/02/2010 Hospital Encounter HX [facility] Yamel Koch M.D. [address] [place] [address] (Wo rk) Social History Tobacco [...] How often do you attend adventism or methodist More than 4 time s [...] encounter Progress Notes Keith Giang M.D. - 06/02/2010 10:30 AM CDT [id number] Chief Complaint Patient presents with Headache episodes of headaches x 2 weeks Sick diarrhea x 4 days, 1 day of vomiting Subjective: Carol Juarez is a 24 year old female with complaint of gastrointestinal symptoms of diarrhea, nausea and vomiting for 2-3 days. No blood in stool. She had 5- 6 loose to watery stools today. She hasn't tried any meds for this. Her son had a similar episode last week, but is better now. HEADACHE:The patient complains of headaches for 1-2 weeks. Description of pain: throbbing pain, bilateral in the frontal area. Duration of individual headaches: 1 day. Frequency of headaches: intermittently, every other day. Associated symptoms: nausea, photophobia. Pain relief: acetaminophen and ibuprofen and OTC migraine medication. Precipitating factors: patient is aware of none. There are no associated abnormal neurological symptoms such as TIA's, loss of balance, loss of vision or speech, numbness or weakness on review. Past neurological history: negative for stroke, MS, epilepsy, or brain tumor. Outpatient prescriptions marked as taking for the 06/02/10 encounter (Office Visit) with KEITH GIANG: MIRENA 20 MCG/24HR IU IUD placed 02/06/08 Disp: 1 Rfl: 0 IBUPROFEN 200 MG OR TABS 3-4 tabs prn Disp: Rfl: ROS: Gen: negative for fevers GI: as above. Neuro: as above for headache. Objective:Blood pressure 108/72, pulse 88, temperature 96.4 ??F (35.8 ??C), temperature source Temporal, weight 254 lb 11.2 oz (115.531 kg). Physical exam reveals the patient appears well. Hydration status: well hydrated. External ears and canals clear bilaterally. TM's normal bilaterally. Nose normal without lesions or discharge. Oropharynx normal. Neck supple without palpable adenopathy. Chest wall normal to inspection and palpation. Good excursion bilaterally. Lungs clear to auscultation. Good air movement bilaterally without rales, wheezes, or rhonchi. Regular rate and rhythm. S1 andS2 normal, no murmurs, clicks, gallops or rubs. No edema or JVD. Chest is clear; no wheezes or rales. . Neck: supple, no adenopathy, and thyroid normal size, non-tender, without nodularity. Abdomen: abdomen is soft without significant tenderness, masses, organomegaly or guarding. Assessment: 1. Headache (784.0) sumatriptan (IMITREX) 100 MG tablet 2. Viral gastroenteritis (008.8D) prochlorperazine (COMPAZINE) 10 MG tablet Plan: I have recommended small amounts clear fluids frequently, soups, juices, water and advance diet as tolerated. Return office visit if symptoms persist or worsen; I have alerted the patient to call if high fever, dehydration, marked weakness, fainting, increased abdominal pain, blood in stool or vomit. Compazine for nausea. Imitrex for headache, suspect migraine. Source: [facility] Document Id: [id number] Electronically signed by Conversion, [facility] Inserter Operator [id number] at 01/24/2017 12:32 PM CDT documented in this encounter Miscellaneous Notes Miscellaneous - Keith Giang M.D. - 06/02/2010 10:[id number] [facility] [address] [facility], [address] 06/02/2010 Carol Juarez TO WHOM IT MAY CONCERN: Carol Juarez was seen on 06/02/2010. Please excuse her from 06/02/2010 until symptoms improve due to illness. Cordially, Keith Giang M.D. [facility] Source: [facility] Document Id: [id number] Electronically signed by Conversion, [facility] Inserter Operator [id number] at 01/24/2017 12:32 PM CDT documented in this encounter Plan of Treatment Scheduled Procedures Name Priority Associated Diagnoses Date/Time COLONOSCOPY Diarrhea documented as of this encounter Visit Diagnoses Not on filedocumented in this encounter
--- OUTSIDE RECORDS SUMMARY | 2022-06-29 09:36 | XMS_ITS | Encounter Summary ---
:1985 Author Organization [facility] Address [address] [place] [address] Care Team Providers Name Role Phone Unavailable Primary Care Provider Unavailable Encounter Details Date Type Department Care Team Description 02/04/2010 Hospital Encounter HX NO MAPPING Venu Yousif M.D. [address] [place], [place] [address] (Wo rk) Social History [...] How often do you attend protestant or mandaeism More than 4 time s [...]
--- OUTSIDE RECORDS SUMMARY | 2022-06-29 09:36 | XMS_ITS | Encounter Summary ---
:1985 Author Organization [facility] Address [address] [place] [address] Care Team Providers Name Role Phone Unavailable Primary Care Provider Unavailable Encounter Details Date Type Department Care Team Description 06/27/2010 Hospital Encounter HX [facility] Moon Figueredo, P.A.-C. [address] [place] [address] (Wo rk) Social History Tobacco Use Types [...] How often do you attend alevism or caodaism More than 4 time s [...] as of this encounter Progress Notes Gloria Ellsworth P.A.-C. - 06/27/2010 10:00 AM CDT [id number] Carol is a 24 year old year old woman here today for her preventative health exam. No LMP recorded.Patient is not currently having periods (Reason: IUD). She is sexually active and denies dyspareunia. Together with current partner on and off for years. Using IUD for contraception. Carol has the following concerns today: is concerned about daily HAs. HAs are primarily frontal bilateral with occasional occipital involvement. Associated with nausea, dizziness. Trigger unknown. Sometimes CHOWDHURY last all day. Have been occuring x 1-2 months. Not associated with any neck/shoulder tension. 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 Takes OTC Tylenol Migraine, ibuprofen and Tylenol without any significant relief. Tried Imitrex as prescribed by PCP Dr. Yousif which didn't help. Health maintenance: Exercise: minimal exercise Vitamins: none Calcium intake: dietary History: Obstetric History T1 TAB0 SAB0 E0 M0 L1 Past Medical History Diagnosis Date Transient hypertension of , antepartum 12/29/07 Hospitalized Body mass index 40 and over, adult Oligohydramnios, delivered 01/06/08 Hospitalized Mild or unspecified pre-eclampsia, with delivery Infection of amniotic cavity, delivered Body mass index 40 and over, adult Past Surgical History Procedure Date C full rout obste care,vaginal deliv 01/03/08 baby boy Current Outpatient Rx Name Route Sig Dispense Refill SUMATRIPTAN SUCCINATE 100 MG PO TABS Oral Take 1 tablet by mouth at onset of headache for migraine.May repeat in 2 hours if needed: max 2/day; average number of headaches monthly 15 9 tablet 11 MIRENA 20 MCG/24HR IU IUD Intrauterine placed 02/06/08 1 0 IBUPROFEN 200 MG PO TABS 3-4 tabs prn PROCHLORPERAZINE MALEATE 10 MG PO TABS Oral Take 1 tablet by mouth every 6 hours as needed for nausea. 30 tablet 1 No known allergies History Social History Marital Status: Single Spouse Name: N/A Number of Children: 1 Years of Education: 13 Occupational History [employer] Social History Main Topics Tobacco Use: Yes -- 0.2 packs/day for 3 years less than quarter pack daily/declines quit line 8-, 06/11/10 Alcohol Use: Yes Drug Use: No Sexually Active: Yes -- Male partner(s) Control/ Protection: IUD Mirena Other Topics Concern Service No Blood Transfusions No Caffeine Concern Yes soda 1 x a day Sleep Concern No Stress Concern No Weight Concern Yes Special Diet No Exercise Yes Seat Belt Yes Self-exams No Social History Narrative No narrative on file Family History Problem Relation Age of Onset Diabetes No family hx of Hypertension Maternal Grandmother Breast CA No family hx of Cancer Maternal Grandfather throat Cancer Maternal Grandmother skin Respiratory Sister cystic fibrosis Review of Systems: Negative unless otherwise noted. Neuro: negataive Eyes: neg Ent: nasal congestion x 1 day Pulmonary: negative Cardiovascular: negative GI:negative : neg Breast: negative Psych: negative Exam: BP 124/74 Ht 1.575 m (5' 2) Wt 119.024 kg (262 lb 6.4 oz) Well nourished, well developed female in NAD. Neuro: Intact Eyes: MAURY ENT: Intact Neck: no thyromegaly, no lymph adenopathy Lungs: clear, equal to auscultation bilaterally, no wheezes,rales,rhonchi Heart: regular rate and rhythm, no murmur, gallop or rub Breast: normal in size and symmetry, normal contour with no evidence of flattening or dimpling, skinnormal, nipples everted without rashes or discharge, palpation negative for masses or nodules Abdomen: Benign, Soft, non-tender, No masses, organomegaly, Bowel sounds normoactive Drawer In Jacquard Loom: external genitalia normal, vaginal mucosa normal, cervix normal, specimen sent for pap, bimanual exam with normal uterus and adnexa, rectovaginal exam deferred Extremities: extremities, peripheral pulses and reflexes normal Assessment and Plan: - Normal Preventative health exam. Normal health maintanence includes Pap smear, chlamydia screen. Will notify pt of results via letter when available. Would like to conceive possibly in near future; advised pt to RTC for IUD removal when ready and start taking daily folic acid now to prevent NTD. Encouraged exercise, weight loss, and calcium intake of at least 1000mg/day. Monthly SBE taught. - Headaches, daily. FU with PCP for further management. Suggested headache journal to better identify triggers. Discussed complication of rebound CHOWDHURY due to chronic analgesic use. Consider head CT if HApersist. Patient understands and is in agreement with plan. Source: [facility] RWHXTRANSXRTFSYS Document Id: [id number] Electronically signed by Conversion, [facility] Geothermal System Installer [id number] at 01/24/2017 1:07 PM CDT documented in this encounter Miscellaneous Notes Miscellaneous - Conversion, Historical Provider Ser - 06/27/2010 10:00 AM CDT [id number] Carol Pearsonford [address] [place] [address] [facility] July 01, 2010 Dear Carol Juarez, I am happy to inform you that your recent cervical cancer screening test (PAP smear) was normal. Preventative screening such as this helps insure your health for years to come. Congratulations for taking care of yourself! Please contact my office if you have any further questions. [phone]. Sincerely, CASSIE Mcintosh OBSTETRICS/GYNECOLOGY [facility] Source: [facility] Document Id: [id number] Miscellaneous - Gloria Ellsworth P.A.-C. - 06/27/2010 10:00 AM CDT [id number] [facility] BERRIEN DIRECTOR BIOSTATISTICS [address] [place] [address] July 03, 2010 Carol Juarez [address] [place] [address] [facility] Dear Ms. Juarez., This letter is sent to inform you of recent laboratory test results and to provide you with personalrecords of health information. Your Pap and chlamydia tests were negative. Thank you for allowing me to participate in your care. If you have any further questions or problems, please contact me at [phone]. Sincerely, Gloria Ellsworth PA-C Source: [facility] Document Id: [id number] Electronically signed by Conversion, [facility] Ge[employer] System Installer [id number] at 01/24/2017 1:07 PM CDT documented in this encounter Plan of Treatment Scheduled Procedures Name Priority Associated Diagnoses Date/Time COLONOSCOPY Diarrhea documented as of this encounter Visit Diagnoses Not on filedocumented in this encounter
--- OUTSIDE RECORDS SUMMARY | 2022-06-29 09:36 | XMS_ITS | Encounter Summary ---
:1985 Author Organization [facility] Address [address] [place] [address] Care Team Providers Name Role Phone Unavailable Primary Care Provider Unavailable Encounter Details Date Type Department Care Team Description 07/16/2010 Hospital Encounter HX [facility] [...] How often do you attend tenriism or jew More than 4 time s [...] Miscellaneous - Conversion, Historical Provider Ser - 07/16/2010 12:00 AM LOAN OPERATIONS SPECIALIST [id number] LETTER Carol Juarez [address] [id number] [facility] [address] [facility] July 16, 2010 Dear Carol: Thank you for requesting an appointment for services at the [facility] Behavioral [facility] Department. Initial 45 minute appointments have been scheduled in our Psychology Department with: Kaye Magallanes, Ph.D., L.P. Sunday, August 01, 2010 at 11:00 AM Wednesday, August 29, 2010 at 10:00 AM Wednesday, September 12, 2010 at 11:00 AM located on the 3rd floor: [facility] at [address] [place] [address]. If the above scheduled appointment is not convenient, please contact our office as soon as possible at or to reschedule. You need to contact your insurance company prior to your appointment for a possible prior authorization to avoid delays in payment or you may be responsible for payment. There will be a number on your insurance card for you to call. Please bring the authorization number that the insurance company gives you, to your first appointment.It is also important that you bring along all of your insurance information at the time of your visit so that billing can be handled promptly. When you make an appointment with our department, time is set aside for you. If you fail to arrive for this appointment, it is time that could have been used by other patients requesting these services. Therefore, if you are unable to keep this appointment, please contact our office prior to your appointment. If you do not contact us at least 24 hours prior to your appointment, you will be billed a Late Cancellation/ No Show Fee. Your insurance company will not reimburse for this fee; therefore, thecharge would be billed directly to you. The forms attached with this letter should be completed and returned to us in the envelope provided prior to your scheduled appointment. We trust that your experience with us will be a pleasant and worthwhile one. Sincerely, [facility] Contact Information July 16, 2010 Intake done by: Humaira EMR#: [id number] NAME: Carol Juarez SSN: [id number] : 1985 Age: [age] year old Sex: female Spouse/ S.O.: - Parent/Guardian: - ADDRESS: [address] [place] [address] [place] Phone Numbers: [phone] (home) Phone Contact: Home: Yes Messages: Yes Written Contact: Home: Yes Work: No Payor: [facility] Plan: [facility] Product Type: Indemnity Court Ordered/Litigation No Referral Information Caller: self Referred by: elie Location: Referred to: monty Prior Contact with [facility]? No Date: - Doctor seen: NA Reason: Depression relationship issues Length and/or Severity of Problem: ongoing Past or Current Mental Health Provider: - Primary Care Physician: Venu Yousif MD, MD Medication: See md list Dosage: - Appointments Appt. With: Kaye Magallanes, Ph.D., L.P. Wednesday, August 01, 2010 at 11:00 AM Wednesday, August 29, 2010 at 10:00 AM Wednesday, September 12, 2010 at 11:00 AM Intake Packet Sent on Wait List No Source: [facility] RWHXTRANSXRTFSYS Document Id: [id number] documented in this encounter Plan of Treatment Scheduled Procedures Name Priority Associated Diagnoses Date/Time COLONOSCOPY Diarrhea documented as of this encounter Visit Diagnoses Not on filedocumented in this encounter
--- OUTSIDE RECORDS SUMMARY | 2022-06-29 09:36 | XMS_ITS | Encounter Summary ---
:1985 Author Organization [facility] Address [address] [place] [address] Care Team Providers Name Role Phone Unavailable Primary Care Provider Unavailable Encounter Details Date Type Department Care Team Description 08/06/2009 Hospital Encounter HX [facility] INPT/OBSRV Shari Diaz M.D. [address] [place], [place] [address] (Wo rk) Social History Tobacco Use Types [...] How often do you attend hinduism or spiritism More than 4 time s [...]
--- OUTSIDE RECORDS SUMMARY | 2022-06-29 09:36 | XMS_ITS | Encounter Summary ---
:1985 Author Organization [facility] Address [address] [place] [address] Care Team Providers Name Role Phone Unavailable Primary Care Provider Unavailable Encounter Details Date Type Department Care Team Description 02/22/2009 Hospital Encounter HX NO MAPPING Rizwan Dean M.D. [address] [place], [place] [phone] (Wo rk) Social History [...] How often do you attend scientology or confucianism More than 4 time s [...]
--- OUTSIDE RECORDS SUMMARY | 2022-06-29 09:36 | XMS_ITS | Encounter Summary ---
:1985 Author Organization [facility] Address [address] [place] [address] Care Team Providers Name Role Phone Unavailable Primary Care Provider Unavailable Encounter Details Date Type Department Care Team Description 02/17/2010 Hospital Encounter HX NO MAPPING Berny Garcia M.D. [address] [place], [place] [phone] (Wo rk) Social History [...] or relatives? How often do you attend episcopalian or uatsdin More than 4 time s per year 07/09/2020 services? Do you belong to any clubs or organizations No 04/19/2019 such as episcopalian groups, unions, fraternal or athletic groups, or [...]
--- OUTSIDE RECORDS SUMMARY | 2022-06-29 09:36 | XMS_ITS | Encounter Summary ---
:1985 Author Organization [facility] Address [address] [place] [address] Care Team Providers Name Role Phone Unavailable Primary Care Provider Unavailable Encounter Details Date Type Department Care Team Description 01/09/2009 Hospital Encounter HX [facility] Yamel Koch M.D. [address] [place] [address] (Wo rk) Social History Tobacco [...] How often do you attend orthodoxy or amish More than 4 time s [...] encounter Progress Notes Venu Yousif M.D. - 01/09/2009 3:00 PM CDT [id number] Comment: Consultant Education Chief Complaint Patient presents with Knee Pain red, swollen infected area L knee for couple days SUBJECTIVE: Carol is a 23-year-old female who presents today for evaluation of a red and swollen area on her left knee for the past two days. She states that this originally started off as being a pimple-like area on her left knee. She did squeeze some whitish colored pus out. She states that since that time it has gotten more painful and more red and swollen. She denies any associated fevers. She denies other aggravating or alleviating factors or associated symptoms except she has pain with flexing her knee. She has also felt the area is warm to the touch. She has never had anything like this before in the past. She has not tried any other treatments for this. She denies any specific injury to this area or tick bites. ALLERGIES: No known drug allergies. SOCIAL HISTORY: She smokes one-quarter pack per day. REVIEW OF SYSTEMS: CONSTITUTIONAL: Negative for fevers or chills. NEUROLOGIC: Negative for any numbness, tingling or weakness. CARDIOVASCULAR: Negative. OBJECTIVE: Blood pressure 122/66, pulse 84, temperature 97.7, weight 239 pounds. GENERAL: She is alert and oriented and appears in no acute distress. Examination of her left knee reveals limited range of motion due to her pain of her left knee. Examination of the skin reveals erythema, induration and increased warmth in the infrapatellar region of her left knee and upper leg. It is painful to the touch. There is a central punctum of crust. IMPRESSION: Cellulitis. PLAN: This is a new diagnosis for her. Keflex was prescribed. Follow up if not improving or any further pussy drainage or increasing pain, fevers or chills. She may need IV antibiotics if that is the case orKeflex is resistant to this. PCN/BTM/dac Source: [facility] RWHXTRANSXRTFSYS Document Id: [id number] Electronically signed by Conversion, [facility] Consultant Education [id number] at 01/24/2017 3:54 PM CDT documented in this encounter Plan of Treatment Scheduled Procedures Name Priority Associated Diagnoses Date/Time COLONOSCOPY Diarrhea documented as of this encounter Visit Diagnoses Not on filedocumented in this encounter
--- OUTSIDE RECORDS SUMMARY | 2022-06-29 09:36 | XMS_ITS | Encounter Summary ---
:1985 Author Organization [facility] Address [address] [place] [address] Care Team Providers Name Role Phone Unavailable Primary Care Provider Unavailable Encounter Details Date Type Department Care Team Description 07/16/2010 Hospital Encounter HX [facility] Yamel Koch M.D. [address] [place] [address] (Wo rk) Social History Tobacco [...] How often do you attend islam or sikh More than 4 time s per year [...] encounter Progress Notes Keith Giang M.D. - 07/16/2010 10:30 AM CST [id number] Chief Complaint: Chief Complaint Patient presents with Depression phq 9 done The patient complains of depression of moderate severity for 2 months. The patient describes the symptoms as feeling depressed, anhedonia. The patient describes modifying or exacerbating factors as: none. The patient has attempted the following treatments: none. The patient denies any other aggravating or alleviating factors or associated symptoms. She is having difficulty sleeping and she has a strong family history of depression as well. Patient Active Problem List Diagnoses Code HEADACHE 784.0 Outpatient prescriptions marked as taking for the 07/16/10 encounter (Office Visit) with KEITH GIANG: prochlorperazine (COMPAZINE) 10 MG tablet Take 1 tablet by mouth every 6 hours as needed for nausea.Disp: 30 tablet Rfl: 1 MIRENA 20 MCG/24HR IU IUD placed 02/06/08 Disp: 1 Rfl: 0 IBUPROFEN 200 MG OR TABS 3-4 tabs prn Disp: Rfl: Allergies Allergen Reactions No Known Allergies Review Of Systems (other than mentioned above) Constitutional: negative Psych: as above. No suicidal thoughts. Cardiovascular: negative PHYSICAL EXAMINATION: Blood pressure 112/76, pulse 84, temperature 95.4 ??F (35.2 ??C), temperature source Temporal, weight 118.434 kg (261 lb 1.6 oz). General: Patient is well nourished, alert and oriented in no acute distress. Psych: depressed mood and flat affect. No other exam was performed. ASSESSMENT/PLAN: 1. 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 (RW) REFERRAL New problem. Celexa 20 mg daily. Psychology consult for psychotherapy. follow up in 1 month. Source: [facility] RWHXTRANSXRTFSYS Document Id: [id number] documented in this encounter Plan of Treatment Scheduled Procedures Name Priority Associated Diagnoses Date/Time COLONOSCOPY Diarrhea documented as of this encounter Visit Diagnoses Not on filedocumented in this encounter
--- OUTSIDE RECORDS SUMMARY | 2022-06-29 09:36 | XMS_ITS | Encounter Summary ---
:1985 Author Organization [facility] Address [address] [place] [address] Care Team Providers Name Role Phone Unavailable Primary Care Provider Unavailable Encounter Details Date Type Department Care Team Description 05/19/2009 Hospital Encounter HX [facility] INPT/OBSRV Chon Babin M.D. [address] [place], [place] [phone] (Wo rk) Social History Tobacco Use Types [...] How often do you attend advent or quaker More than 4 time s [...]
--- OUTSIDE RECORDS SUMMARY | 2022-06-29 09:37 | XMS_ITS | Encounter Summary ---
:1985 Author Organization [facility] Address [address] [place] [address] Care Team Providers Name Role Phone Unavailable Primary Care Provider Unavailable Encounter Details Date Type Department Care Team Description 12/29/2007 Hospital Encounter HX [facility] Casi Vo M.D. [address] [place], [place] [phone] (Wo rk) Social History [...] How often do you attend congregational or anabaptism More than 4 time s [...] of this encounter Miscellaneous Notes Miscellaneous - Ann Grove M.D. - 12/29/2007 12:00 AM CDT [id number] [facility] [address] [facility], [address] Name: Carol Juarez Birthdate: 1985 [facility] Admission Date: 12/27/2007 Allergy: No known allergies PHYSICIAN's DISCHARGE / TRANSFER ORDERS DISCHARGE TO: Home MEDICATIONS: PHARMACY CONSULT: NO Current outpatient prescriptions Medication Sig ZANTAC OR 1 CAPSULE AT BEDTIME VITAMINS OR None Entered Patient's prescription was not needed DIET: regular ADMITTING DIAGNOSIS: evolving preeclampsia, 40 weeks. DISCHARGE DIAGNOSIS: same, failed induction. HOSPITAL COURSE: Complications: none. Given cervidil, pitocin. Had no cervical change Discharge hemoglobin - N/A g/dL. PROCEDURE(S) PERFORMED: none Discharge exam - Lungs - clear Abdomen - soft Vaginal discharge - minimal No leg tenderness CONDITION ON DISCHARGE: Stable LEVEL OF ACTIVITY: bedrest APPOINTMENTS: tomorrow for IOL POST CONTRACEPTION REQUESTED:N/A REFERRALS: NONE OTHER ORDERS/COMMENTS: None: DISCHARGE SUMMARY DICTATED?: See Hospital Course information above. Time spent in discharging patient - less than [address] Ann Grove MD 12/29/2007 Source: [facility] RWHXTRANSXRTFSYS Document Id: [id number] Electronically signed by Conversion, [facility] Milling Planer Operator [id number] at 01/25/2017 4:45 AM CDT Miscellaneous - Conversion, Historical Provider Ser - 12/29/2007 12:00 AM CDT [id number] [address], [address] Name: Carol Juarez Birthdate: 1985 SSN: [id number] [facility] Allergy: No known allergies Discharge Date: 12/29/2007 Discharge Instructions Discharged to: Home - Activities: Bed rest Medications: Zantac 1 capsule at bedtime Vitamins As directed Discharge Vital Signs: Temp: 96.7 degrees Fahrenheit; B/P: 109/86mHg; Pulse: 90; Respiration: 16. Pain Management: None given Discharge Pain Score: 0/10 . Time the discharge pain score was documented 8:25 a.m. Nursing Instructions: Please call At 6:30 a.m on December 30, 2207 for return apointment for induction of labor Patient Education: Bed rest. Call if contractions begin and are strong, any leakage of fluid or any questions or concerns Diet: regular Appointment(s): Call in a.m for induction of labor. Please arrive at 7:00 a.m I have all of my belongings . I understand my discharge instructions. My medications were reviewed with me Patient's Signature: Nurse Discharging this patient signature: RN Signature & Date: Margie Leach Date: 12/29/2007 Please see paper chart for additional discharge documentation info: (time, how & by). Source: [facility] RWMCHXTRANSXRTFSYS Document Id: [id number] documented in this encounter Plan of Treatment Scheduled Procedures Name Priority Associated Diagnoses Date/Time COLONOSCOPY Diarrhea documented as of this encounter Visit Diagnoses Not on filedocumented in this encounter
--- OUTSIDE RECORDS SUMMARY | 2022-06-29 09:37 | XMS_ITS | Encounter Summary ---
:1985 Author Organization [facility] Address [address] [place] [address] Care Team Providers Name Role Phone Unavailable Primary Care Provider Unavailable Encounter Details Date Type Department Care Team Description 11/21/2007 Hospital Encounter HX [facility] Casi Vo M.D. [address] [place], [place] [phone] (Wo rk) Social History [...] How often do you attend bahai or zoroastrianism More than 4 time s per year [...] encounter Progress Notes Ann Grove M.D. - 11/21/2007 2:00 PM CDT [id number] Gestational Age: 34w 5d C/O increased edema in feet and hands. BR Repeat BP 130/78 sitting. Reviewed S/S of [facility], will limit work to 8 hrs a day (now working 10hr) follow up in 4-5 days. KG [facility] Document Id: [id number] Electronically signed by Conversion, [facility] Datapower Consultant [id number] at 01/25/2017 1:26 AM CDT documented in this encounter Miscellaneous Notes Miscellaneous - Ann Grove M.D. - 11/21/2007 2:00 PM CDT [id number] Return to Work Release Date: 11/21/2007 Name: Carol Juarez Birthdate: 1985 The patient was seen at: [facility] today Restrictions if any: May work no more than 8 hrs due to complications. Ann Grove M.D. OBSTETRICS/GYNECOLOGY [facility] Source: [facility] Document Id: [id number] Electronically signed by Conversion, [facility] Datapower Consultant [id number] at 01/25/2017 1:26 AM CDT documented in this encounter Plan of Treatment Scheduled Procedures Name Priority Associated Diagnoses Date/Time COLONOSCOPY Diarrhea documented as of this encounter Visit Diagnoses Not on filedocumented in this encounter
--- OUTSIDE RECORDS SUMMARY | 2022-06-29 09:37 | XMS_ITS | Encounter Summary ---
:1985 Author Organization [facility] Address [address] [place] [address] Care Team Providers Name Role Phone Unavailable Primary Care Provider Unavailable Encounter Details Date Type Department Care Team Description 2007 Hospital Encounter HX NO MAPPING Provider, Historical Social History Tobacco Use Types Packs/Day Years [...] How often do you attend mandaen or protestant More than 4 time s [...] Miscellaneous - Conversion, Historical Provider Ser - 2007 10:20 AM CDT [id number] [facility] Document Id: [id number] Miscellaneous - Conversion, Historical Provider Ser - 2007 10:20 AM CDT [id number] [facility] [address] [facility], [address] Name: Carol Juarez Birthdate: 1985 SSN: [id number] [facility] Allergy: No known allergies Discharge Date: 2007 Discharge Instructions Discharged to: Home - Activities: -Up as tolerated and -Bed rest with Bathroom Privileges Medications: No medications were given while you were hospitalized Discharge Vital Signs: Temp: 98.2 degrees Fahrenheit; B/P: 115/80mHg; Pulse: 80; Respiration: 16. Pain Management: Most recent pain medication No pain Meds were given Discharge Pain Score: 0/10 . Time the discharge pain score was documented 12:30. PM Nursing Instructions: call if your bags of jones breaks, you have contractions every 5 minutes or less that you cant talk or walk through, Call if you have blurred vision epigastric pain or seeing spots Patient Education: as above Diet: regular Appointment(s): To call [phone] by 5 pm to verify that you can come in for an induction and we willsee you by 7pm for cervidal placement I have all of my belongings . I understand my discharge instructions. My medications were reviewed with me and other family member(s). Patient's Signature: Nurse Discharging this patient signature: RN Signature & Date: KE Date: 2007 Please see paper chart for additional discharge documentation info: (time, how & by). Source: [facility] RWHXTRANSXRTFSYS Document Id: [id number] Miscellaneous - Conversion, Historical Provider Ser - 2007 10:20 AM CDT [id number] [address] [place] [address] Name: Carol Juarez Birthdate: 1985 SSN: [id number] [facility] Allergy: No known allergies Discharge Date: 2007 Obstetrical Discharge Instructions Information given to patient: [facility] Immunization - {YES-NO Default Yes:4444::Yes} Notice of Phone Call / Classes - {YES-NO Default Yes:4444::Yes} Parenting Newsletter - {YES-NO Default Yes:4444::Yes} Public Health Referral - {YES-NO Default Yes:4444::Yes} Social Work Services Referral - {YES-NO Default Yes:4444::Yes} -Information for Medical Records - {YES-NO Default Yes:4444::Yes} Discharged to: Home. Activities: {[facility]:297121::-Up as tolerated} Medications: {:PLEASE INCLUDE THE TIME THE LAST MEDICATIONS WERE GIVEN Cut & Paste from MD Orders or documenthere the medication(s), Dose, Route, & last Time given} Discharge Vital Signs: Temp: {:enter vital signs here} degrees Fahrenheit; B/P: mHg; Pulse: ; Respiration: . Pain Management: Most recent pain medication {:enter name, dose,route & time given}. Discharge Pain Score: {:number 1-10}/10 . Time the discharge pain score was documented {:time}. Nursing Instructions: { OB HOSP AL NURSE INSTRUCT:254012::Nothing per Vagina for 6 weeks, As instructed by your provider.} Diet: { OB [facility] DIET:678218} Appointment(s): Mother's Appointment: To see . Baby's Appointment: To see . Baby's Discharge weight: Please attend discharge Weigh-In Class on Date: at 2:00 PM I have all of my belongings . I understand my discharge instructions. Patient's Signature: Nurse Discharging this patient signature: RN Signature & Date: {:RN's signature} Date: 2007 Please see paper chart for additional discharge documentation info: (time, how & by). Source: [facility] RWHXTRANSXRTFSYS Document Id: [id number] documented in this encounter Plan of Treatment Scheduled Procedures Name Priority Associated Diagnoses Date/Time COLONOSCOPY Diarrhea documented as of this encounter Visit Diagnoses Not on filedocumented in this encounter
--- OUTSIDE RECORDS SUMMARY | 2022-06-29 09:37 | XMS_ITS | Encounter Summary ---
:1985 Author Organization [facility] Address [address] [place] [address] Care Team Providers Name Role Phone Unavailable Primary Care Provider Unavailable Encounter Details Date Type Department Care Team Description 10/24/2007 Hospital Encounter [facility]X [facility] Mariaelena Mcintosh M.D. Social History Tobacco Use Types Packs/Day Years [...] How often do you attend yarsani or synagogue More than 4 time s [...] documented as of this encounter Progress Notes Mariaelena Kinney M.D. - 10/24/2007 11:00 AM CST [id number] Has some mild CHOWDHURY, migranes Used tylenol and Caffeine. Good movement. Exam normal. Skin lesion onarms - will get derm consult. KD [facility] Document Id: [id number] documented in this encounter Plan of Treatment Scheduled Procedures Name Priority Associated Diagnoses Date/Time COLONOSCOPY Diarrhea documented as of this encounter Visit Diagnoses Not on filedocumented in this encounter
--- OUTSIDE RECORDS SUMMARY | 2022-06-29 09:37 | XMS_ITS | Encounter Summary ---
:1985 Author Organization [facility] Address [address] [place] [address] Care Team Providers Name Role Phone Unavailable Primary Care Provider Unavailable Encounter Details Date Type Department Care Team Description 12/21/2007 Hospital Encounter HX [facility] Casi Vo M.D. [address] [place], [place] [phone] (Wo rk) Social History [...] How often do you attend rastafarian or anabaptist More than 4 time s [...] encounter Progress Notes Ann Grove M.D. - 12/21/2007 10:15 AM CDT [id number] Repeat BP 132/80. Has 2+ edema. No headache, visual changes Signs and symptoms of PIH discussed. Will follow up Mon with 24 hr urine and labs and appt. KG Source: [facility] RWMCHXTRANSXRTFSYS Document Id: [id number] documented in this encounter Plan of Treatment Scheduled Procedures Name Priority Associated Diagnoses Date/Time COLONOSCOPY Diarrhea documented as of this encounter Visit Diagnoses Not on filedocumented in this encounter
--- OUTSIDE RECORDS SUMMARY | 2022-06-29 09:37 | XMS_ITS | Encounter Summary ---
:1985 Author Organization [facility] Address [address] [place] [address] Care Team Providers Name Role Phone Unavailable Primary Care Provider Unavailable Encounter Details Date Type Department Care Team Description 01/02/2008 Hospital Encounter HX NO MAPPING Provider, Historical [...] of this encounter Miscellaneous Notes Miscellaneous - Mariaelena Kinney M.D. - 01/02/2008 10:[id number] [facility] [address] [facility], [address] Name: Carol Juarez [facility]: 1985 [facility] Admission Date: 01-02-08 Allergy: No known allergies PHYSICIAN's DISCHARGE / TRANSFER ORDERS DISCHARGE TO: Home MEDICATIONS: PHARMACY CONSULT: NO Current outpatient prescriptions Medication Sig MOTRIN 600 MG OR TABS 1 TABLET PO q 6 hrs PRN pain ZANTAC OR 1 CAPSULE AT BEDTIME VITAMINS OR None Entered Patient's prescription was not needed DIET: regular ADMITTING DIAGNOSIS: term pregancy with hypertension and oligohydramnios. DISCHARGE DIAGNOSIS: same with chorioamnionitis, endometritis and anemia. HOSPITAL COURSE: Complications: none Discharge hemoglobin - 10.0 g/dL. PROCEDURE(S) PERFORMED: Vaginal delivery after induction/augmentation of labor, IV antibiotics Discharge exam - Breast soft and nontender Abdomen - soft Fundus firm at umbilicus and non tender Wound - healing well without any signs of infection or hematoma CONDITION ON DISCHARGE: Stable LEVEL OF ACTIVITY: up as tolerated and nothing per vagina for 6 weeks APPOINTMENTS: with OB Nurse Practitioner in 6 weeks POST CONTRACEPTION REQUESTED:IUD REFERRALS: NONE OTHER ORDERS/COMMENTS: Call if heavy bleeding, temperature over 100.4 degrees or signs of wound infection (redness, hot , any discharge, tenderness) DISCHARGE SUMMARY DICTATED?: Will be dictated at a later time. Time spent in discharging patient - less than [address] Mariaelena Kinney 01/06/2008 Source: [facility] RWMCHXTRANSXRTFSYS Document Id: [id number] Electronically signed by [facility], [facility] Line Maintenance Technician [id number] at 01/25/2017 4:45 AM CDT Miscellaneous - Conversion, Historical Provider Ser - 01/02/2008 10:25 AM CDT [id number] [address] [place] [address] Name: Carol Juarez Birthdate: 1985 SSN: [id number] [facility] Allergy: No known allergies Discharge Date: 01/06/2008 Obstetrical Discharge Instructions Information given to patient: [facility] Immunization - Yes Notice of Phone Call / Classes - Yes Parenting Newsletter - Yes Public Health Referral - Yes Social Work Services Referral - No -Information for Medical Records - Yes Discharged to: Home. Activities: -Up as tolerated Medications: Motrin 600mg oral tablets: 1 tablet every 6 hours as needed for pain Zantac: 1 capsule at bedtime vitamin: daily Discharge Vital Signs: Temp: 97.8 degrees Fahrenheit; B/P: 138/87mHg; Pulse: 85; Respiration: 18. Pain Management: Most recent pain medication: Ibuprofen 600mg tablet at 1:55pm. Discharge Pain Score: 0/10 . Time the discharge pain score was documented 4:00pm. Nursing Instructions: Nothing per Vagina for 6 weeks Call if heavy bleeding, temperature over 100.4 degrees, or signs of wound infection (redness, hot, discharge, tenderness) Diet: Regular Appointment(s): Mother's Appointment: To see Marisol Irving in 6 weeks, on WednesdayFebruary 16 at 9:00am. Baby's Appointment: To see Dr. Sanchez in 2 weeks, on WednesdayJanuary 19 at 9:10am. Baby's Discharge weight: 7# 13oz Please attend discharge Weigh-In Class on Date: WednesdayJanuary 08 at 2:00 PM I have all of my belongings . I understand my discharge instructions. Patient's Signature: Nurse Discharging this patient signature: RN Signature & Date: Leonora Reaves Date: 01/06/2008 Please see paper chart for additional discharge documentation info: (time, how & by). Source: [facility] RWHXTRANSXRTFSYS Document Id: [id number] documented in this encounter Plan of Treatment Scheduled Procedures Name Priority Associated Diagnoses Date/Time COLONOSCOPY Diarrhea documented as of this encounter Visit Diagnoses Not on filedocumented in this encounter
--- OUTSIDE RECORDS SUMMARY | 2022-06-29 09:37 | XMS_ITS | Encounter Summary ---
:1985 Author Organization [facility] Address [address] [place] [address] Care Team Providers Name Role Phone Unavailable Primary Care Provider Unavailable Encounter Details Date Type Department Care Team Description 11/25/2007 Hospital Encounter HX [facility] OBGYN Provider, Histor ical Social History Tobacco Use Types Packs/Day Years [...] How often do you attend druze or rastafari More than 4 time s [...] Progress Notes Conversion, Historical Provider Ser - 11/25/2007 2:00 PM CDT [id number] Gestational Age: 35w 2d, recheck b/p, has a lot of pelvic pressure, has some leakage after she voids,JZ No sx pree. Repeat bp 122/80. Nitrazine negative. No ctx/vb. Decreased movement. BPP performed in clinic ANA LUISA 16cm. +2 breathing, +2 flexion/extension, +2 gross movement, +2 fluid = 88 Source: [facility] RWHXTRANSXRTFSYS Document Id: [id number] documented in this encounter Plan of Treatment Scheduled Procedures Name Priority Associated Diagnoses Date/Time COLONOSCOPY Diarrhea documented as of this encounter Visit Diagnoses Not on filedocumented in this encounter
--- OUTSIDE RECORDS SUMMARY | 2022-06-29 09:37 | XMS_ITS | Encounter Summary ---
:1985 Author Organization [facility] Address [address] [place] [address] Care Team Providers Name Role Phone Unavailable Primary Care Provider Unavailable Encounter Details Date Type Department Care Team Description 10/10/2007 Hospital Encounter HX [facility] Adonis Weir M.D. [address] [place] [phone] (Wo rk) Social History Tobacco Use Types [...] How often do you attend orthodoxy or methodist More than 4 time s [...] Progress Notes Conversion, Historical Provider Ser - 10/10/2007 11:00 AM CST [id number] Gestational Age: 28w 5d Rhogam Injection given today. BR No concerns wds Source: [facility] RWMCHXTRANSXRTFSYS Document Id: [id number] documented in this encounter Plan of Treatment Scheduled Procedures Name Priority Associated Diagnoses Date/Time COLONOSCOPY Diarrhea documented as of this encounter Visit Diagnoses Not on filedocumented in this encounter
--- OUTSIDE RECORDS SUMMARY | 2022-06-29 09:37 | XMS_ITS | Encounter Summary ---
:1985 Author Organization [facility] Address [address] [place] [address] Care Team Providers Name Role Phone Unavailable Primary Care Provider Unavailable Encounter Details Date Type Department Care Team Description 01/11/2008 Hospital Encounter HX NO MAPPING Provider, Historical [...] How often do you attend caodaism or yazdanism More than 4 time s per year [...]
--- OUTSIDE RECORDS SUMMARY | 2022-06-29 09:37 | XMS_ITS | Encounter Summary ---
:1985 Author Organization [facility] Address [address] [place] [address] Care Team Providers Name Role Phone Unavailable Primary Care Provider Unavailable Encounter Details Date Type Department Care Team Description 12/02/2007 Hospital Encounter HX [facility] Casi Vo M.D. [address] [place], [place] [phone] (Wo rk) Social History [...] encounter Progress Notes Ann Grove M.D. - 12/02/2007 9:30 AM CDT [id number] Having some cramping. She's 36 weeks now so given 36 week instructions GBS/Hg done. KARY reviewed. BP good today. KG [facility] Document Id: [id number] Electronically signed by [facility], [facility] [id number] at 01/25/2017 2:07 AM CDT documented in this encounter Miscellaneous Notes Ann Barfield M.D. - 12/02/2007 9:30 AM CDT [id number] Carol Magalys [address] [address] December 05, 2007 Dear Carol: I am writing to inform you the results of the laboratory tests you had done during your recent visitto the clinic. The results of your recent lab(s) were: Your Group B Stept test was negative, you are not a carrier for this bacteria. It was a pleasure to see you in the clinic. If you have any further questions or problems, please contact our office at [phone]. Sincerely, Ann Grove MD, SHELL CORE AND MOLDING SUPERVISOR Department [facility] Source: [facility] Document Id: [id number] Electronically signed by Conversion, [facility] [id number] at 01/25/2017 2:07 AM CDT Ann Barfield M.D. - 12/02/2007 9:30 AM CDT [id number] Carol Dowell [address] [address] December 05, 2007 Dear Carol: I am writing to inform you the results of the laboratory tests you had done during your recent visitto the clinic. Your labs are all normal. The results of your recent lab(s) were: Your Group B Stept test was negative, you are not a carrier for this bacteria. Your hemoglobin results: HGB 12.4 12/02/2007 normal range: 11.7-15.7 (female) normal range: 13.3-17.7 (male) It was a pleasure to see you in the clinic. If you have any further questions or problems, please contact our office at [phone]. Sincerely, Ann Grove MD, SHELL CORE AND MOLDING SUPERVISOR Department [facility] Source: [facility] Document Id: [id number] Electronically signed by Conversion, [facility] [id number] at 01/25/2017 2:07 AM CDT documented in this encounter Plan of Treatment Scheduled Procedures Name Priority Associated Diagnoses Date/Time COLONOSCOPY Diarrhea documented as of this encounter Visit Diagnoses Not on filedocumented in this encounter
--- OUTSIDE RECORDS SUMMARY | 2022-06-29 09:37 | XMS_ITS | Encounter Summary ---
:1985 Author Organization [facility] Address [address] [place] [address] Care Team Providers Name Role Phone Unavailable Primary Care Provider Unavailable Encounter Details Date Type Department Care Team Description 12/27/2007 Hospital Encounter HX NO MAPPING Provider, Historical [...] How often do you attend methodist or presybeterian More than 4 time s [...] Miscellaneous - Conversion, Historical Provider Ser - 12/27/2007 7:10 PM CDT [id number] [facility] Document Id: [id number] documented in this encounter Plan of Treatment Scheduled Procedures Name Priority Associated Diagnoses Date/Time COLONOSCOPY Diarrhea documented as of this encounter Visit Diagnoses Not on filedocumented in this encounter
--- OUTSIDE RECORDS SUMMARY | 2022-06-29 09:37 | XMS_ITS | Encounter Summary ---
:1985 Author Organization [facility] Address [address] [place] [address] Care Team Providers Name Role Phone Unavailable Primary Care Provider Unavailable Encounter Details Date Type Department Care Team Description 12/30/2007 Hospital Encounter HX NO MAPPING Provider, Historical [...] How often do you attend scientologist or christian More than 4 time s [...] Miscellaneous - Conversion, Historical Provider Ser - 12/30/2007 7:10 AM CDT [id number] Source[facility] Document Id: [id number] Miscellaneous - Conversion, Historical Provider Ser - 12/30/2007 7:10 AM CDT [id number] December 30, 2007 Carol Dowell [place] [id number] OB Admit History & Physical 2007 Carol is a 21 year old y/o @ 40w2(10) who presents for IOL. She has had intermittently elevated bps over the last several weeks. She was admitted several days ago for attempted IOL. After >24hours, she was discharged b/c labor did not occur. She reports ?leaking fluid this AM. No contractions currently. No VB. She has not really been feeling the baby move this morning yet. No symptoms of pree. This has been complicated by the followin. Above situation PNL: blood type Aneg, Ab neg Rub indeterminate, HBsAg neg, HIV neg, RPR NR GBS neg GC/CT neg, pap WNL 1hr glu 122 Hgb 12.4 Quad screen declined POBHx: G1 PGynHx: no h/o abnl pap, no h/o STI No past medical history on file. No past surgical history on file. Family History Problem Relation Diabetes No family hx of Hypertension Maternal Grandmother Breast CA No family hx of Cancer Maternal Grandfather throat Cancer Maternal Grandmother skin Respiratory Sister cystic fibrosis History Social History Marital Status: Single Spouse Name: N/A Number of Children: N/A Years of Education: 13 Occupational History [employer] [facility] Social History Main Topics Tobacco Use: Quit Quit date: 07/28/2007 second hand smoke at home, stepdad smokes outside Alcohol Use: No Drug Use: No Sexually Active: Yes -- Male partner(s) Other Topics Concern Blood Transfusions No Caffeine No Sleep Concern No Stress Concern No Weight Concern Yes Diet No Exercise Yes Self Exams No Social History Narrative No narrative on file Current Outpatient Rx Name Route Sig Dispense Refill ZANTAC OR Oral 1 CAPSULE AT BEDTIME VITAMINS OR Oral None Entered Allergies Allergen Reactions No Known Allergies REVIEW OF SYSTEMS: NEUROLOGIC: Negative EYES: Negative ENT: Negative GI: Negative BREAST: Negative : Negative ARABIC LINGUIST: As above CV: Negative PULMONARY: Negative MUSCULOSKELETAL: Negative PSYCH: Negative PE: BP 108/80 Gen: A&O, NAD CV: RRR Chest: CTA bilat Abd: Gravid, NT, vtx by Christiane, EFW 3900g by Christiane Ext: No CT, 1+ edema, DTR tr bilat, no clonus SVE: Deferred FHT: 140, ave LTV, +accels Sikes: Irritability Amnisure: Negative Ltd ultrasound performed. Cephalic presentation confirmed. A/P: 21 y/o @ 40w2 (10) with: 1. IOL: Will proceed with 2nd attempt at induction with pitocin. 2. Gestational HTN: No e/o pree. Bp OK today. Will follow 3. GBS negative 4. status reassuring. Rylee Grijalva MD Dept of WIRELESS TELEGRAPHER Source[facility] Document Id: [id number] Miscellaneous - Conversion, Historical Provider Ser - 12/30/2007 7:10 AM CDT [id number] [facility] [address] [facility], [address] Name: Carol Juarez Birthdate: 1985 [facility] Admission Date: 12/30/2007 Allergy: No known allergies PHYSICIAN's DISCHARGE / TRANSFER ORDERS DISCHARGE TO: Home MEDICATIONS: PHARMACY CONSULT: NO Current outpatient prescriptions Medication Sig ZANTAC OR 1 CAPSULE AT BEDTIME VITAMINS OR None Entered Patient's prescription was not needed DIET: regular ADMITTING DIAGNOSIS: Term , gestational hypertension. DISCHARGE DIAGNOSIS: same, failed induction HOSPITAL COURSE: Pt was admitted to L&D. Pitocin was initiated through her IV. After 10 hours, despite being up to 22mu/min of pitocin, she was not feeling any contractions. Her cervix was checked and was unchanged. Her bps have been normal throughout her stay. After discussion of her options, she would like to stop the induction at this time and will plan to f/u in clinic on Wednesday. She would like to wait to reschedule any other attempts at Induction Complications: none PROCEDURE(S) PERFORMED: Induction Discharge exam - B/P - 100-110/80 Cervix /50/-2 CONDITION ON DISCHARGE: Stable LEVEL OF ACTIVITY: bedrest APPOINTMENTS: For OB check and NST on Wednesday01/02/2008 REFERRALS: NONE OTHER ORDERS/COMMENTS: None: DISCHARGE SUMMARY DICTATED?: See Hospital Course information above. Time spent in discharging patient - less than [address] Rylee Grijalva MD 12/30/2007 Source: [facility] RWHXTRANSXRTFSYS Document Id: [id number] Miscellaneous - Conversion, Historical Provider Ser - 12/30/2007 7:10 AM CDT [id number] [facility] [address] [facility], [address] Name: Carol Juarez Birthdate: 1985 SSN: [id number] [facility] Allergy: No known allergies Discharge Date: 12/30/2007 Discharge Instructions Discharged to: Home - Activities: -Bedrest with bathroom privilages Medications: Zantac: 1 capsule at bedtime vitamin: 1 daily Discharge Vital Signs: Temp: degrees Fahrenheit; B/P: mHg; Pulse: ; Respiration: . Pain Management: Most recent pain medication Tylenol; Dose: 1gm: Route: by mouth; Time last given: 1200. Discharge Pain Score: H/A/10 . Time the discharge pain score was documented 1630. PM Nursing Instructions: Patient Education: Call if signs of labor or if water breaks Diet: regular Appointment(s): Please call [phone] on Wednesday for an appt. Make appt for Wednesday01/02/08 forOB check and NST. I have all of my belongings . I understand my discharge instructions. My medications were reviewed with me. Patient's Signature: Nurse Discharging this patient signature: RN Signature & Date: Spencer Schuster RN Date: 12/30/2007 Please see paper chart for additional discharge documentation info: (time, how & by). Source: [facility] RWHXTRANSXRTFSYS Document Id: [id number] documented in this encounter Plan of Treatment Scheduled Procedures Name Priority Associated Diagnoses Date/Time COLONOSCOPY Diarrhea documented as of this encounter Visit Diagnoses Not on filedocumented in this encounter
--- OUTSIDE RECORDS SUMMARY | 2022-06-29 09:37 | XMS_ITS | Encounter Summary ---
:1985 Author Organization [facility] Address [address] [place] [address] Care Team Providers Name Role Phone Unavailable Primary Care Provider Unavailable Encounter Details Date Type Department Care Team Description 11/21/2007 Hospital Encounter [facility]X [facility] Yamel Koch M.D. [address] [place] [address] (Wo rk) Social History Tobacco [...] How often do you attend mandaen or jainism More than 4 time s [...] encounter Progress Notes Venu Yousif M.D. 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 She reports that they have been there for many years. They seem to be a little more itchy now that she is . She has never been seen before for this. Most the time they dont bother her, but sometimes theybecome itchy and she scratches them. She is currently and is due in December. The so far has been doing well. She is from [place]. She has not tried any medications for this. Nothingseems to make the spots get any better or worse. She notices them more at different times of the year. She does not think that they are spreading. PCN/btm/mp Patient Active Problem List Diagnoses Code OBESITY-ANTEPARTUM 649.13 SUPERVIS OTHER NORMAL PREG V22.1 PROPHYLACTIC IMMUNOTHERAPY V07.2 HEADACHE 784.0 Medications the patient reported as taking as of 11/21/2007: ZANTAC OR` 1 CAPSULE AT BEDTIME` Disp: ` Rfl: VITAMINS OR` None Entered` Disp: ` Rfl: Review Of Systems (other than mentioned above) Constitutional: negative Cardiovascular: negative PHYSICAL EXAMINATION: Blood pressure 120/90, pulse 72, temperature 96.2, temperature source Temporal, weight 250 lbs (113.4 kg), last menstrual period OB (12/28/07). General: Patient is well nourished, alert and [...] No carotid bruits. No edema or cyanosis. Examination of her skin reveals multiple patches; some of them are mildly flaky. Most are circular in shape and other areas are more confluent. She has areas on the bilateral forearms and upper arms aswell as flank, back and upper chest. IMPRESSION: Tinea versicolor. This is a new problem. PLAN: Patient was given information regarding tinea versicolor. I gave her handout in regard to the use ofSelsun Blue shampoo and she was also instructed on its use. If not improving she will follow up. Shewas told that it would take 6-12 months before her skin color returned to normal even with successful treatment now. She will start this after she delivers. PCN/btm/mp Source: [facility] RWMCHXTRANSXRTFSYS Document Id: [id number] documented in this encounter Plan of Treatment Scheduled Procedures Name Priority Associated Diagnoses Date/Time COLONOSCOPY Diarrhea documented as of this encounter Visit Diagnoses Not on filedocumented in this encounter
--- OUTSIDE RECORDS SUMMARY | 2022-06-29 09:37 | XMS_ITS | Encounter Summary ---
:1985 Author Organization [facility] Address [address] [place] [address] Care Team Providers Name Role Phone Unavailable Primary Care Provider Unavailable Encounter Details Date Type Department Care Team Description 01/02/2008 - Hospital Encounter HX NO MAPPING Mariaelena Mills, 01/06/2008 Sera Social History Tobacco Use Types Packs/Day Years [...] How often do you attend worship or judaism More than 4 time s [...]
--- OUTSIDE RECORDS SUMMARY | 2022-06-29 09:37 | XMS_ITS | Encounter Summary ---
:1985 Author Organization [facility] Address [address] [place] [address] Care Team Providers Name Role Phone Unavailable Primary Care Provider Unavailable Encounter Details Date Type Department Care Team Description 01/02/2008 Hospital Encounter HX [facility] Casi Vo M.D. [address] [place], [place] [phone] (Wo rk) Social History [...] How often do you attend orthodox or shinto More than 4 time s [...] encounter Progress Notes Ann Grove M.D. - 01/02/2008 9:30 AM CDT [id number] Here for NST/ANA LUISA. Failed IOL last week for PIH. Was on BR all weekend BP normal today. O: ANA LUISA=4.5 A/P Gestational Age: 40w 5d , oligohydramnios. history of evolving PIH but BPs have been normal on BR. Admit. KG Source: [facility] RWHXTRANSXRTFSYS Document Id: [id number] Electronically signed by Conversion, [facility] Veneer Drier Feeder [id number] at 01/25/2017 4:45 AM CDT documented in this encounter Plan of Treatment Scheduled Procedures Name Priority Associated Diagnoses Date/Time COLONOSCOPY Diarrhea documented as of this encounter Visit Diagnoses Not on filedocumented in this encounter
--- OUTSIDE RECORDS SUMMARY | 2022-06-29 09:37 | XMS_ITS | Encounter Summary ---
:1985 Author Organization [facility] Address [address] [place] [address] Care Team Providers Name Role Phone Unavailable Primary Care Provider Unavailable Encounter Details Date Type Department Care Team Description 08/23/2008 Hospital Encounter HX NO MAPPING Provider, Historical [...] How often do you attend muslim or mormon More than 4 time s [...] Miscellaneous - Conversion, Historical Provider Ser - 08/23/2008 12:00 AM CHANNEL SALES DIRECTOR [id number] 07/02/2009 - Date of R/C request: 06-12-09 Records sent to: Care Delivery Management [facility] Bambi Oh RN - [address] [address] [place] [address] [facility] Description of Disclosure: 12-27-07 to 12-29-07. 12-30-07 to 12-30-07, 01-02-08 to 01-06-08 Purpose of Disclosure: insurance for payment audit Authorization: NO Source: [facility] Document Id: [id number] documented in this encounter Plan of Treatment Scheduled Procedures Name Priority Associated Diagnoses Date/Time COLONOSCOPY Diarrhea documented as of this encounter Visit Diagnoses Not on filedocumented in this encounter
--- OUTSIDE RECORDS SUMMARY | 2022-06-29 09:37 | XMS_ITS | Encounter Summary ---
:1985 Author Organization [facility] Address [address] [place] [address] Care Team Providers Name Role Phone Unavailable Primary Care Provider Unavailable Encounter Details Date Type Department Care Team Description 12/27/2007 - Hospital Encounter HX NO MAPPING Provider, Historical 12/29/2007 Social History Tobacco Use Types Packs/Day Years [...] How often do you attend mormon or religion More than 4 time s [...]
--- OUTSIDE RECORDS SUMMARY | 2022-06-29 09:37 | XMS_ITS | Encounter Summary ---
:1985 Author Organization [facility] Address [address] [place] [address] Care Team Providers Name Role Phone Unavailable Primary Care Provider Unavailable Encounter Details Date Type Department Care Team Description 12/14/2007 Hospital Encounter HX [facility] OBGYN Provider, Histor ical Social History Tobacco [...] How often do you attend protestant or quaker More than 4 time s [...] documented as of this encounter Progress Notes Roland, Alberto Provider Ser - 12/14/2007 9:45 AM CDT [id number] No complaints, exam normal KRN No regular contractions KRN [facility] Document Id: [id number] documented in this encounter Plan of Treatment Scheduled Procedures Name Priority Associated Diagnoses Date/Time COLONOSCOPY Diarrhea documented as of this encounter Visit Diagnoses Not on filedocumented in this encounter
--- OUTSIDE RECORDS SUMMARY | 2022-06-29 09:37 | XMS_ITS | Encounter Summary ---
:1985 Author Organization [facility] Address [address] [place] [address] Care Team Providers Name Role Phone Unavailable Primary Care Provider Unavailable Encounter Details Date Type Department Care Team Description 11/07/2007 Hospital Encounter HX [facility] OBGYN Provider, Histor ical Social History [...] How often do you attend nondenominational or advent More than 4 time s [...] Progress Notes Conversion, Historical Provider Ser - 11/07/2007 10:30 AM CDT [id number] C/o pressure.TM Patient reassured Would like to be seen by primary for rash. Has depigmented areas on foreqrms bilaterally. Not rpesent on remainder of body. Has had prior to , no other symptoms. KRN Source[facility] Document Id: [id number] documented in this encounter Plan of Treatment Scheduled Procedures Name Priority Associated Diagnoses Date/Time COLONOSCOPY Diarrhea documented as of this encounter Visit Diagnoses Not on filedocumented in this encounter
--- OUTSIDE RECORDS SUMMARY | 2022-06-29 09:37 | XMS_ITS | Encounter Summary ---
:1985 Author Organization [facility] Address [address] [place] [address] Care Team Providers Name Role Phone Unavailable [...] How often do you attend anglican or mormonism More than 4 time s [...]
--- OUTSIDE RECORDS SUMMARY | 2022-06-29 09:37 | XMS_ITS | Encounter Summary ---
:1985 Author Organization [facility] Address [address] [place] [address] Care Team Providers Name Role Phone Unavailable Primary Care Provider Unavailable Encounter Details Date Type Department Care Team Description 2007 [facility] En[facility]X [facility] OBGYN Provider, Histor ical Social [...] How often do you attend anabaptism or sikh More than 4 time s [...] as of this encounter Progress Notes Roland, Historical Provider Ser - 2007 9:15 AM CDT [id number] Repeat bp 144/86. No sx pree. Amnisure, nitrazine negative. Will check PIH labs and obs on LD. [facility] Document Id: [id number] documented in this encounter Miscellaneous Notes Miscellaneous - Conversion, Historical Provider Ser - 2007 9:15 AM CDT [id number] 2007 Carol Juarez [id number] OB Admit History & Physical OB ADMIT H&P 2007 Carol is a 21 year old y/o @ 39w5 (10) who presents for f/u bp. She was seen last week with bp 130s/80. She reports no headache, no vision changes, no RUQ or epigastric pain. She c/o uterine cramping, ?LOF, no vaginal bleeding, +good FM. This has been complicated by the followin. [...] N/A Years of Education: 13 Occupational History [employer] Home Social History Main Topics Tobacco Use: [...] Negative GI: Negative BREAST: Negative : Negative JUMBO OPERATOR: Negative CV: Negative PULMONARY: Negative MUSCULOSKELETAL: Negative PSYCH: Negative PE: BP 154/92 Wt 257 lbs 9.6 oz (116.8kg) LMP OB (12/28/07) repeat bp 144/86 Gen: A&O, NAD CV: RRR Chest: CTA bilat Abd: Gravid, NT, vtx by Christiane, EFW 3800g by Christiane Ext: No CT, 1+ edema, DTR tr bilat, no clonus SVE: /-2 A/P: 21 y/o @ 39w5 (10) with: 1. Elevated BP: 24 hour urine with 80mg protein. Will obs on L&D, monitor bps and check PIH labs. Rylee Grijalva MD MD Dept of REHAB PHYSICIAN Source: [facility] Document Id: [id number] documented in this encounter Plan of Treatment Scheduled Procedures Name Priority Associated Diagnoses Date/Time COLONOSCOPY Diarrhea documented as of this encounter Visit Diagnoses Not on filedocumented in this encounter
--- OUTSIDE RECORDS SUMMARY | 2022-06-29 09:37 | XMS_ITS | Encounter Summary ---
:1985 Author Organization [facility] Address [address] [place] [address] Care Team Providers Name Role Phone Unavailable Primary Care Provider Unavailable Encounter Details Date Type Department Care Team Description 06/04/2008 Hospital Encounter [facility] INPT/OBSRV Neema Nieves M.D. Social History Tobacco Use Types Packs/Day [...] How often do you attend spiritism or roman catholic More than 4 time s per [...]
--- OUTSIDE RECORDS SUMMARY | 2022-06-29 09:37 | XMS_ITS | Encounter Summary ---
:1985 Author Organization [facility] Address [address] [place] [address] Care Team Providers Name Role Phone Unavailable Primary Care Provider Unavailable Encounter Details Date Type Department Care Team Description 09/28/2007 Hospital Encounter [facility] Dave Dela Cruz, R.N. Social History Tobacco Use Types Packs/Day Years [...] How often do you attend zoroastrianism or jainism More than 4 time s [...] this encounter Miscellaneous Notes Telephone Encounter - Katharina Dela Cruz R.N. - 09/28/2007 12:00 AM CST [id number] Patient called reports that she was into clinic today for sore throat. Rapid Strep was negative she wanted a review of homecare to help decrease sore throat. Advised patient to try salt water gargles, sips of chicken broth or other warm liquids, cough drops, and use a vaporizer or humidifer in house to get moisture into air. Advised patient to try for a couple of days and if no improvement or if symptoms worsen call back to clinic. Patient agrees to plan or care. Source: [facility] RWHXTRANSXRTFSYS Document Id: [id number] Electronically signed by Conversion, [facility] Teaching Specialists [id number] at 01/25/2017 12:10 AM CDT documented in this encounter Plan of Treatment Scheduled Procedures Name Priority Associated Diagnoses Date/Time COLONOSCOPY Diarrhea documented as of this encounter Visit Diagnoses Not on filedocumented in this encounter
--- OUTSIDE RECORDS SUMMARY | 2022-06-29 09:37 | XMS_ITS | Encounter Summary ---
:1985 Author Organization [facility] Address [address] [place] [address] Care Team Providers Name Role Phone Unavailable Primary Care Provider Unavailable Encounter Details Date Type Department Care Team Description 10/03/2008 Hospital Encounter [facility] Provider, [facility] Social History Tobacco Use Types Packs/Day Years [...] How often do you attend baptist or baptism More than 4 time s [...] Encounter - Conversion, Historical Provider Ser - 10/03/2008 12:00 AM CST [id number] TELEPHONE TRIAGE ENCOUNTER FORM Date: 10/03/2008 PCP: Venu Yousif MD, MD Patient Name: Carol Juarez Gender: female : 1985 Age: [age] year old Time: 11:35 AM Phone Numbers: [phone] (home) Pharmacy: [facility] [place] ASSESSMENT Presenting Problem: Skin infection/left hand Subjective/objective: Patient reports that she has had two infected sores on her left hand x one month. Sores are on her middle and pinky fingers. The sores are red and open with discharge at times. Her pinky finger is very painful today. Hurts to move the finger. No fever or other symptoms reported at this time. Onset: unchanged Duration: 1 month Associated Sx: No fever noted. Pain in finger Problem list reviewed: YES Recent History: No. Recent Illness: No Allergies verified: YES Precipitated by: Unknown origin Med list reviewed: YES Alleviated by: N/A. Has been cleansing with Hydrogen peroxide and applying Bacitracin w/o any results. Immunosuppressed:NO Conclusion / Primary Problem: Skin infection/left hand Protocol(s) Consulted: Per Nursing Judgement PLAN / INTERVENTION Disposition: Referred to clinic - within 24 hours Caller verbalizes understanding of disposition? YES Caller agrees to plan? Yes EVALUATION / FOLLOW-UP Will see Eddie Mcnair today. Source: [facility] RWHXTRANSXRTFSYS Document Id: [id number] documented in this encounter Plan of Treatment Scheduled Procedures Name Priority Associated Diagnoses Date/Time COLONOSCOPY Diarrhea documented as of this encounter Visit Diagnoses Not on filedocumented in this encounter
--- OUTSIDE RECORDS SUMMARY | 2022-06-29 09:37 | XMS_ITS | Encounter Summary ---
:1985 Author Organization [facility] Address [address] [place] [address] Care Team Providers Name Role Phone Unavailable Primary Care Provider Unavailable Encounter Details Date Type Department Care Team Description 01/20/2008 Hospital Encounter [facility] Adonis Weir M.D. [address] [place] [phone] (Wo rk) Social History Tobacco [...] How often do you attend yarsani or gnosticism More than 4 time s [...] documented as of this encounter Progress Notes Rubio Hooks M.D. - 01/20/2008 10:45 AM CDT [id number] Carol is sent from Peds (there with baby) because she is having epigastric pain. This has been occuring for the last several days as a mild pain, but was severe this morning. She took 300mg Zantac andthe pain was a little better but not gone. Over the last hour it has improved. She has had no nausea, vomiting, fever, chills, diarrhea, bladder sx. She had a vaginal delivery 2w 3d ago. She had a post endometritis that was treated with IV antibiotics. Exam: Vitals as above She is not in distress. Abd is soft with mod epigastric tenderness, but no RUQ or LUQ tenderness. No CVA tenderness. Normal bowel sounds. Dx: epigastric pain resolving Plan: Amylase, CBC [facility] RWHXTRANSXRT[facility]YS Document Id: [id number] documented in this encounter Plan of Treatment Scheduled Procedures Name Priority Associated Diagnoses Date/Time COLONOSCOPY Diarrhea documented as of this encounter Visit Diagnoses Not on filedocumented in this encounter
--- OUTSIDE RECORDS SUMMARY | 2022-06-29 09:37 | XMS_ITS | Encounter Summary ---
:1985 Author Organization [facility] Address [address] [place] [address] Care Team Providers Name Role Phone Unavailable Primary Care Provider Unavailable Encounter Details Date Type Department Care Team Description 12/07/2007 Hospital Encounter [facility] Marisol Galaviz, APR N, C.N.P. [address] [place], [place] [phone] (Wo rk) Social History [...] or relatives? How often do you attend sikh or adventism More than 4 time s per year 07/09/2020 services? Do you belong to any clubs or organizations No 04/19/2019 such as sikh groups, unions, fraternal or athletic groups, or [...] documented as of this encounter Progress Notes Marisol Irving C.NBrittaneyP., R.N. - 12/07/2007 10:30 AM CDT [id number] Carol is here at Gestational Age: 37w. She states that she is getting ready at home. Preregistration: Sent in. Childbirth Ed. Classes attended: Early n, Baby Care/Nutrition y, Labor and delivery y, n, Review n, Sibling n Carseat: Has one ready to go, knows how to use it. Plans to breastfeed her baby Baby Doctor: Tari Circumcision: yes Control plans: Plans to use the pill. Financial issues: No problems. Understands signs and symptoms of labor, knows phone numbers to call, where to go when in labor, etc. plan discussed. yes Discussed warning signs of . Referral status: none Assessment and Plan: Weekly visits with MD until delivery. Enc. to call with any concerns. Source: [facility] Document Id: [id number] Electronically signed by Conversion, [facility] Paraprofessional Interpreter [id number] at 01/25/2017 2:07 AM CDT Marisol Irving C.N.P., R.N. - 12/07/2007 10:30 AM CDT [id number] Gestational Age: 37w GBS and HGB done today. plan and hospital arrival information given. C/O low back, leg and pelvic pain all the time. Hurts to stand more than 5 min at a time. BR Will limit work to 4 hours per day d/t increased edema. Warning signs discussed. FKC also discussed.ZENON Source: [facility] Document Id: [id number] Electronically signed by Conversion, [facility] Paraprofessional Interpreter [id number] at 01/25/2017 2:07 AM CDT documented in this encounter Miscellaneous Notes Miscellaneous - Marisol Irving C.N.P., R.N. - 12/07/2007 10:30 AM CDT [id number] Date: 12/07/2007 Name: Carol Juarez Birthdate: 1985 The patient was seen at: [facility] today Restrictions if any: Please limit work to 4 hours per day. Marisol Irving RN, ELECTROTYPER OBSTETRICS/GYNECOLOGY [facility] Source: [facility] RWHXTRANSXRTFSYS Document Id: [id number] Electronically signed by Conversion, [facility] Paraprofessional Interpreter [id number] at 01/25/2017 2:07 AM CDT documented in this encounter Plan of Treatment Scheduled Procedures Name Priority Associated Diagnoses Date/Time COLONOSCOPY Diarrhea documented as of this encounter Visit Diagnoses Not on filedocumented in this encounter
--- OUTSIDE RECORDS SUMMARY | 2022-06-29 09:37 | XMS_ITS | Encounter Summary ---
:1985 Author Organization [facility] Address [address] [place] [address] Care Team Providers Name Role Phone Unavailable [...] How often do you attend caodaism or episcopalian More than 4 time s [...]
--- OUTSIDE RECORDS SUMMARY | 2022-06-29 09:37 | XMS_ITS | Encounter Summary ---
:1985 Author Organization [facility] Address [address] [place] [address] Care Team Providers Name Role Phone Unavailable Primary Care Provider Unavailable Encounter Details Date Type Department Care Team Description 02/06/2008 Hospital Encounter [facility] Marislo Galaviz, APR N, C.N.P. [address] [place], [place] [phone] (Wo rk) Social History [...] How often do you attend bahai or mu-ism More than 4 time s [...] of this encounter Progress Notes Marisol Irving C.NLebron., R.N. - 02/06/2008 1:00 PM CDT [id number] Carol is here for a 6-week checkup. She had a induced vaginal delivery of a viable boy, weight 7 pounds 13 oz., with Chorio complications. Since delivery, she has not been breast feeding. She has no signs of infection, bleeding or other complications. She is not . We discussed contraceptions and she has chosen IUD. EXAM: HEENT: grossly normal. NECK: no lymphadenopathy or thyroidomegaly. LUNGS: CTA X 2, no rales or crackles. BACK: No spinal or CVA tenderness. HEART: RRR without murmurs clicks or gallops. ABDOMEN: soft, non tender, good bowel sounds, without masses rebound, guarding or tenderness. PELVIC: External genitalia: normal without lesion, repair well healed. Vagina: normal mucosa and rugae, no discharge. Cervix: multiparous, well healed, without lesion. Uterus: non in size, firm , mobile, no lesions. Adnexa: non tender, without masses EXTREMITIES: Warm to touch, good pulses, no ankle edema or calf tenderness. NEUROLOGIC: grossly normal. ASSESSMENT: Normal 6-week exam after induced vaginal delivery. PLAN: IUD for contraception. TDAP Patient is in wishing to have an IUD inserted. She already has reviewed the IUD information booklet. Her LMP was No LMP date recorded. Reason: .. Initial pelvic exam revealed no abnormal discharge in the vagina. Cx looking normal. Uterus, normal size. Adnexae, negative. After cleansing the vagina and cervix with Betadine solution the uterus was sounded to 7 cm and a Mirena IUD was inserted without difficulty. She was advised to check the IUD thread, following the completion of her next period. She will return to the office PRN. Signs and symptoms of infection were discussed. Source: [facility] RWHXTRANSXRTFSYS Document Id: [id number] Electronically signed by Conversion, [employer] Le[employer] Supervisor [id number] at 01/25/2017 2:51 AM CDT documented in this encounter Miscellaneous Notes Miscellaneous - Marisol Irving C.N.P., R.N. - 02/06/2008 1:00 PM CDT [id number] Date: 02/06/2008 Name: Carol Juarez Birthdate: 1985 The patient was seen at: [facility] today Restrictions if any: Able to work unrestricted as of today. Marisol Irving RN, REMOTELY OPERATED VEHICLE OBSTETRICS/GYNECOLOGY [facility] Source: [facility] Document Id: [id number] Electronically signed by Conversion, [employer] Supervisor [id number] at 01/25/2017 2:51 AM CDT documented in this encounter Plan of Treatment Scheduled Procedures Name Priority Associated Diagnoses Date/Time COLONOSCOPY Diarrhea documented as of this encounter Visit Diagnoses Not on filedocumented in this encounter
--- OUTSIDE RECORDS SUMMARY | 2022-06-29 09:38 | XMS_ITS | Encounter Summary ---
:1985 Author Organization [facility] Address [address] [place] [address] Care Team Providers Name Role Phone Unavailable Primary Care Provider Unavailable Encounter Details Date Type Department Care Team Description 09/26/2007 [facility] Marisol Galaviz, APR N, C.N.P. [address] [place], [place] [phone] (Wo rk) Social History [...] How often do you attend tenriism or faith More than 4 time s [...] Progress Notes Conversion, Historical Provider Ser - 09/26/2007 9:45 AM CST [id number] Carol is here for her 26 week visit. She is Gestational Age: 26w 5d weeks today. 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 Carol understands the following: Definition of labor: Yes Warning signs of labor: Yes Palpatation of uterine contractions: Yes Warning signs of complications: Yes Weight gain: Yes Nutrition choices (review intake and risks): Yes Prevention/treatment of constipation (increase fluids/fiber): Yes Discontinue smoking, drug use, ETOH use: Yes Decrease strenuous activities (increase rest): Yes Consider work/activity/environmental hazards: Yes Travel recommendations: Yes Sexual activity/intercourse: Yes Avoid nipple stimulation: Yes Infant feeding plans: Yes Inverted nipple treatment: Not Asked Car seat: Yes Other topics discussed: none Next appointment: 2,4 weeks [facility] Document Id: [id number] Marisol Irving C.N.P., R.N. - 09/26/2007 9:45 AM CST [id number] Gestational Age: 26w 5d 1 hr gtt, antibody screen and hgb done today. certificate form given. BR Doing well. Attending classes. ZENON Source: [facility] Document Id: [id number] Electronically signed by [facility], [facility] Rural Carrier Associate [id number] at 01/25/2017 12:10 AM CDT documented in this encounter Miscellaneous Notes Miscellaneous - Marisol Irving C.N.P., R.N. - 09/26/2007 9:[id number] [facility] [address] [facility] [place] [address] September 27, 2007 Carol Juarez [address] [place] [phone] Dear Ms. Juarez: I am writing to inform you the results of the laboratory tests you had done during your recent visitto the clinic. The tests that are checked were performed and are satisfactory, unless otherwise noted. The results of your recent lab(s) were: Office Visit on 09/26/2007 Component Date Value Range Status HGB (g/dL) 09/26/2007 12.0 11.7-15.7 Final Gl,Gest Sc, 1 hr,50g (mg/dL) 09/26/2007 122 60-140 Final Antibody Screen 09/26/2007 Neg - Final Specimen Description 09/27/2007 Midstream Urine - Final Culture 09/27/2007 - Final Value: 50 to 100,000 colonies/mL Multiple species present, probable perineal contamination. Report status 09/27/2007 Pending - Incomplete It was a pleasure to see you in the clinic. If you have any further questions or problems, please contact our office at [phone]. Sincerely, Marisol Irving RN, RN INTAKE [facility] Source: [facility] Document Id: [id number] Electronically signed by Conversion, [facility] Rural Carrier Associate [id number] at 01/25/2017 12:10 AM CDT documented in this encounter Plan of Treatment Scheduled Procedures Name Priority Associated Diagnoses Date/Time COLONOSCOPY Diarrhea documented as of this encounter Visit Diagnoses Not on filedocumented in this encounter
--- OUTSIDE RECORDS SUMMARY | 2022-06-29 09:38 | XMS_ITS | Encounter Summary ---
:1985 Author Organization [facility] Address [address] [place] [address] Care Team Providers Name Role Phone Unavailable Primary Care Provider Unavailable Encounter Details Date Type Department Care Team Description 08/26/2007 Hospital Encounter [facility] XRAY Provider, Histori huma Social History [...] How often do you attend episcopalian or mandaeism More than 4 time s [...] Miscellaneous - Conversion, Historical Provider Ser - 08/26/2007 8:45 AM SALON SHAMPOO ASSISTANT [id number] Carol Juarez [address] [place] [phone] September 01, 2007 Dear Ms. Juarez: I am writing to inform you the results of the laboratory tests you had done during your recent visitto the clinic. Your results included : Your OB ultrasound was normal. The anatomy appeared normal (remember the ultrasound can only find about 50% of defects). The due date is unchanged. The placenta and fluid are normal. It was a pleasure to see you in the clinic. If you have any further questions or problems, please contact our office at [phone]. Sincerely, Rylee Grijalva MD Dept. LADDERMAN [facility] Source: [facility] Document Id: [id number] documented in this encounter Plan of Treatment Scheduled Procedures Name Priority Associated Diagnoses Date/Time COLONOSCOPY Diarrhea documented as of this encounter Visit Diagnoses Not on filedocumented in this encounter
--- OUTSIDE RECORDS SUMMARY | 2022-06-29 09:38 | XMS_ITS | Encounter Summary ---
:1985 Author Organization [facility] Address [address] [place] [address] Care Team Providers Name Role Phone Unavailable Primary Care Provider Unavailable Encounter Details Date Type Department Care Team Description 06/27/2007 Hospital Encounter HX [facility] Marisol Galaviz, APR N, C.N.P. [address] [place], [place] [phone] (Wo rk) Social History [...] How often do you attend jewish or roman catholic More than 4 time [...] Progress Notes Marisol Irving C.NLebron., R.N. - 06/27/2007 11:00 AM CST [id number] Addended by: MARISOL IRVING on: 06/29/2007 12:10:37 PM Modules accepted: Orders [facility] Document Id: [id number] Electronically signed by Conversion, [facility] Compressed Gas Tester [id number] at 01/25/2017 10:01 AM CDT Conversion, Historical Provider Ser - 06/27/2007 11:00 AM CST [id number] Addended by: LORENZO ARIAS on: 06/29/2007 1:34:55 PM Modules accepted: Orders [facility] Document Id: [id number] Conversion, Historical Provider Ser - 06/27/2007 11:00 AM CST [id number] OK for message at home Genetic Screening: Sister with CF, is a carrier Infectious Diseases: Denies any history of sexually transmitted infections. Pap smears have been normal. Sexual History together with s/o, Brendon, off and on 6 months S: Carol is a 21 year old y/o, G 1, P 0. She is Gestational Age: 13w 5d weeks today according to early sono done. She lives in [place] with mother. Carol has been feeling OK. She works at [employer]. Family is close and supportive. [facility]. Assessment: vitamins: Is taking them. Diet: Regular diet, no history of an eating disorder. Adequate calcium intake discussed. She has been referred to meet with the four horse hitch driver. Transportation issues: none Safe relationship: She feels safe in current relationship. She has no history of abusive relationhips. Financial Concerns: doing OK Insurance: [place] for [place] Social Service/Public Health: WIC She is a smoker, trying to quit She is planning to breastfeed her baby. Discussed wt. gain and exercise, caffeine, cat litter, choosing a baby doctor, toxic substances. O: Physical Exam: Appropriate affect and grooming. Good eye contact during interview. There is no Lymph adenopathy, or thyromegaly. Lungs are clear bilaterally, heart has regular rate and rhythm. Breasts are slightly tender, related to the . Abdomen is soft without masses. External genitalia is without lesions, discharge is WNL. Pap smear obtained. . CT/GC obtained. Cervix appeared normal. Fundal height is consistant with dates, no adenexal masses. Early dating US was obtained at an earlierdate. A: 1. Appropriate and health seeking behaviors toward her 2. Verbalizes understanding of care schedule, and the importance of coming to each visit as scheduled. 3. Supportive relationship with her family 4. Obese Plan:1. Discussed materials in the new OB folder, proper diet, exercise and enc. her to abstain fromalcohol. We also discussed childbirth ed. classes, she was given dates today. 2. Her next appointment will be in 4 weeks with OB MD, 1 hour GTT. She was enc. to call with any questions. Referrals: None [facility] Document Id: [id number] Marisol Irving C.NBrittaneyP., R.N. - 06/27/2007 11:00 AM CST [id number] Body mass index is 40.11 kg/(m`2). Obesity protocol. 1 GTT with next visit. Early sono done for dates. Applying for [place], WIC, GCPH consult ordered. Quitting smoking. ZENON Source: [facility] Document Id: [id number] Electronically signed by Conversion, [facility] Compressed Gas Tester [id number] at 01/25/2017 10:01 AM CDT documented in this encounter Miscellaneous Notes Miscellaneous - Conversion, Historical Provider Ser - 06/27/2007 11:00 AM PLASTER TENDER [id number] Carol Juarez [address] [place] [phone] June 29, 2007 Dear Carol Juarez, I am happy to inform you that your recent cervical cancer screening test (PAP smear) was normal. Preventative screening such as this helps insure your health for years to come. Congratulations for taking care of yourself! Please contact my office if you have any further questions. [phone]. Sincerely, Marisol Irving RN, CORPORATE EXECUTIVE OBSTETRICS/GYNECOLOGY [facility] Source: [facility] Document Id: [id number] Miscellaneous - Marisol Irving C.N.P., R.N. - 06/27/2007 11:00 AM CST [id number] Carol Juarez [address] [place] [phone] June 29, 2007 MR#: [id number] Dear Carol, I am happy to inform you of the results of the lab work we did at your recent OB visit. Please transfer this information to your Care Card. Blood Type - A Rh Status - Negative Your blood type is slightly unusual in that you are Rh negative. This not something to worry about, but you will be receiving a special injection at 28 weeks called Rhogam. This shot will prevent your body from building up antibodies that could cause problems with your next . You will also nee d Rhogam after your baby is born if your baby is not Rh negative like you are. Please call if you have questions or bring your questions to your next OB check. Hemoglobin - 13.9 Normal is 11.0 - 16.0 Rubella Status - Non Immune: you may be immunized for this post Hepatitis B screen - Negative HIV screen - Negative Syphilis screen - Negative Chlamydia/Gonorrhea Screen - Negative Urine test - Positive for infection Your thyroid (TSH) blood test: TSH 1.18 06/27/2007 normal range: 0.34-4.82 If you have any questions about your results feel free to give me a call at [phone]. Sincerely, Marisol Irving RN,CORPORATE EXECUTIVE set up / operator [facility] Source: [facility] Document Id: [id number] Electronically signed by Conversion, [facility] Compressed Gas Tester [id number] at 01/25/2017 10:01 AM CDT documented in this encounter Plan of Treatment Scheduled Procedures Name Priority Associated Diagnoses Date/Time COLONOSCOPY Diarrhea documented as of this encounter Visit Diagnoses Not on filedocumented in this encounter
--- OUTSIDE RECORDS SUMMARY | 2022-06-29 09:38 | XMS_ITS | Encounter Summary ---
:1985 Author Organization [facility] Address [address] [place] [address] Care Team Providers Name Role Phone Unavailable Primary Care Provider Unavailable Encounter Details Date Type Department Care Team Description 05/24/2007 Hospital Encounter HX [facility] OBGYN Provider, Histor ical Social History [...] How often do you attend muslim or restorationism More than 4 time s per year [...] Encounter - Conversion, Historical Provider Ser - 05/24/2007 12:00 AM CDT [id number] LMP: 03/12/07- Uncertain Dates NGA: 12/18/06 Triage/Phone Nurse: 'How many periods have you missed?' TWO. Have you done a home test? YES - Which is this for you? FIRST . Do you have any of the following health problems? Diabetes High Blood Pressure Kidney or Liver disease Heart problems Previous Blood Clots Cancer Any other health problems * * * NO TO ALL THE ABOVE: 1. You will be seeing Marisol Irving CNP, she is our nurse practitioner, for your first visit and the next visit will be with an MD. 2. This appointment will be an hour appointment that will include getting a history, an exam that includes a pap smear and some lab work. 3. Instruct to abstain from alcohol and to start taking a multivitamin if not already taking one or buy a vitamin over the counter. 4. Transfer to the scheduling desk Ultrasound ordered for dating per Marisol. New OB appt as soon as can be scheduled. Source: [facility] Document Id: [id number] documented in this encounter Plan of Treatment Scheduled Procedures Name Priority Associated Diagnoses Date/Time COLONOSCOPY Diarrhea documented as of this encounter Visit Diagnoses Not on filedocumented in this encounter
--- OUTSIDE RECORDS SUMMARY | 2022-06-29 09:38 | XMS_ITS | Encounter Summary ---
:1985 Author Organization [facility] Address [address] [place] [address] Care Team Providers Name Role Phone Unavailable Primary Care Provider Unavailable Encounter Details Date Type Department Care Team Description 09/28/2007 Hospital Encounter [facility] Manuel Hernandez P.ABrittaney-CBrittaney [address] [place] [phone] (Wo rk) Social History Tobacco [...] or relatives? How often do you attend confucianism or uatsdin More than 4 time s per year 07/09/2020 services? Do you belong to any clubs or organizations No 04/19/2019 such as confucianism groups, unions, fraternal or athletic groups, or [...] documented as of this encounter Progress Notes Karey Paula - 09/28/2007 8:30 AM CST [id number] SUBJECTIVE: Carol is a 21 year old female who presents today complaining of a sore throat for the past1 days. Has not had fever or chills. Is coughing as well quite hard that made her feel she nearly needed to vomit. No wheezing or shortness of breath. has not had vomiting. No dysuria. No joint aches or swelling. Has not had skin rash Non smoker, no asthma. Current outpatient prescriptions Medication Sig ZANTAC OR 1 CAPSULE AT BEDTIME RHOGAM (HUMAN) 300 MCG IM INJ 1 time only at 28 weeks VITAMINS OR None Entered No known allergies OBJECTIVE: BP 122/68 Pulse 96 Temp (Src) 97.4 (Temporal) Wt 236 lbs 9.6 oz (107.3kg) LMP OB (12/28/07) Carol is alert and oriented. No acute distress. HEENT: PERRL. EOM intact. No conjunctival infection. TM's are benign in appearance. Posterior pharynx is normal without tonsillar erythema, edema. Exudate is not present. NECK: No adeopathy. RESP: Lungs are clear to auscultation. CV: Regular rate and rhythm. Rapid Strep test is negative. ASSESSMENT: 462 ACUTE PHARYNGITIS (primary encounter diagnosis) Plan: STREP GROUP A AG (RAPID), BETA STREP CONFIRM Rapid strep is negative. Will call patient with faxed prescription for antibiotics if it cultures out to be positive. Work note written Return in about 7 days (around 10/05/2007) for recheck if not resolving, sooner if worse as discussed. Symptomatice and supportive care with Tylenol. Salt water gargles. . Push fluids. Rest. Return to clinic if not improving over the next week or sooner if symptoms wrosen Source: [facility] RWHXTRANSXRTFSYS Document Id: [id number] Electronically signed by Conversion, [facility] Customer Sales Consultant [id number] at 01/25/2017 12:10 AM CDT documented in this encounter Miscellaneous Notes Miscellaneous - Karey Paula - 09/28/2007 8:30 AM CST [id number] Carol Juarez [address] [place] [id number] September 28, 2007 To whom it may concern Please excuse Carol Juarez from work for illness on 09/28/2007. She may return to work on 09/29/2007 without limitation. If you have any other questions or concerns please feel free to contact me at anytime. Sincerely, Karey Paula PA-C Department of Family Practice [facility] Source: [facility] Document Id: [id number] Electronically signed by Conversion, [facility] Customer Sales Consultant [id number] at 01/25/2017 12:10 AM CDT documented in this encounter Plan of Treatment Scheduled Procedures Name Priority Associated Diagnoses Date/Time COLONOSCOPY Diarrhea documented as of this encounter Visit Diagnoses Not on filedocumented in this encounter
--- OUTSIDE RECORDS SUMMARY | 2022-06-29 09:38 | XMS_ITS | Encounter Summary ---
:1985 Author Organization [facility] Address [address] [place] [address] Care Team Providers Name Role Phone Unavailable Primary Care Provider Unavailable Encounter Details Date Type Department Care Team Description 08/26/2007 Hospital Encounter [facility] Casi Vo M.D. [address] [place], [place] [phone] (Wo rk) Social History [...] How often do you attend bahai or christian More than 4 time s [...] encounter Progress Notes Ann Grove M.D. - 08/26/2007 9:30 AM CST [id number] Less GERD, not taking it now. Had US today. KG Source: [facility] RWHXTRANSXRTFSYS Document Id: [id number] documented in this encounter Plan of Treatment Scheduled Procedures Name Priority Associated Diagnoses Date/Time COLONOSCOPY Diarrhea documented as of this encounter Visit Diagnoses Not on filedocumented in this encounter
--- OUTSIDE RECORDS SUMMARY | 2022-06-29 09:38 | XMS_ITS | Encounter Summary ---
:1985 Author Organization [facility] Address [address] [place] [address] Care Team Providers Name Role Phone Unavailable Primary Care Provider Unavailable Encounter Details Date Type Department Care Team Description 08/26/2007 Hospital Encounter HX NO MAPPING Provider, Historical [...] often do you attend roman catholic or latter-day More than 4 time s [...]
--- OUTSIDE RECORDS SUMMARY | 2022-06-29 09:38 | XMS_ITS | Encounter Summary ---
:1985 Author Organization [facility] Address [address] [place] [address] Care Team Providers Name Role Phone Unavailable Primary Care Provider Unavailable Encounter Details Date Type Department Care Team Description 07/27/2007 Hospital Encounter HX [facility] OBGYN Provider, Histor ical Social History [...] How often do you attend alevism or christian More than 4 time s [...] documented as of this encounter Progress Notes Alison Monsivais L.PBrittaneyNBrittaney - 07/27/2007 8:45 AM CST [id number] Addended by: ALISON GONZALEZ on: 07/27/2007 9:07:44 AM Modules accepted: Orders [facility] Document Id: [id number] Electronically signed by Conversion, [facility] Materials And Processes Manager [id number] at 01/25/2017 5:21 AM CDT Conversion, Historical Provider Ser - 07/27/2007 8:45 AM CST [id number] Gestational Age: 18w, feels ok, 20 week waiver signed,declines to have quad test, JZ Doing well, no concerns. Early 1hr glu today. U/s ordered. [facility]: [facility] Document Id: [id number] documented in this encounter Miscellaneous Notes Miscellaneous - Marisol Irving, C.N.P., R.N. - 07/27/2007 8:45 AM CST [id number] [facility] [address] [place] [address] July 27, 2007 Carol Juarez [address] [place] [phone] Dear Ms. Juarez: I am writing to inform you the results of the laboratory tests you had done during your recent visitto the clinic. The tests that are checked were performed and are satisfactory, unless otherwise noted. The results of your recent lab(s) were: Office Visit on 07/27/2007 Component Date Value Range Status Gl,Gest Sc, 1 hr,50g (mg/dL) 07/27/2007 110 60-140 Final It was a pleasure to see you in the clinic. If you have any further questions or problems, please contact our office at [phone]. Sincerely, Marisol Irving RN, OIL CHANGE TECHNICIAN [facility] Source: [facility] Document Id: [id number] Electronically signed by Conversion, [facility] Materials And Processes Manager [id number] at 01/25/2017 5:21 AM CDT documented in this encounter Plan of Treatment Scheduled Procedures Name Priority Associated Diagnoses Date/Time COLONOSCOPY Diarrhea documented as of this encounter Visit Diagnoses Not on filedocumented in this encounter
--- OUTSIDE RECORDS SUMMARY | 2022-06-29 09:38 | XMS_ITS | Encounter Summary ---
:1985 Author Organization [facility] Address [address] [place] [address] Care Team Providers Name Role Phone Unavailable Primary Care Provider Unavailable Encounter Details Date Type Department Care Team Description 09/26/2007 Hospital Encounter [facility] Provider, Historic al Social History Tobacco Use [...] How often do you attend yazdanism or restorationism More than 4 time s [...]
--- OUTSIDE RECORDS SUMMARY | 2022-06-29 09:38 | XMS_ITS | Encounter Summary ---
:1985 Author Organization [facility] Address [address] [place] [address] Care Team Providers Name Role Phone Unavailable Primary Care Provider Unavailable Encounter Details Date Type Department Care Team Description 06/01/2007 Hospital Encounter [facility] XRAY Provider, Histori huma Social History [...] How often do you attend muslim or episcopal More than 4 time s [...]
--- OUTSIDE RECORDS SUMMARY | 2022-06-29 09:38 | XMS_ITS | Encounter Summary ---
:1985 Author Organization [facility] Address [address] [place] [address] Care Team Providers Name Role Phone Unavailable Primary Care Provider Unavailable Encounter Details Date Type Department Care Team Description 08/18/2007 Hospital Encounter HX [facility] Casi Vo M.D. [address] [place], [place] [phone] (Wo rk) Social History [...] How often do you attend uatsdin or cheondoism More than 4 time s [...] encounter Progress Notes Ann Grove M.D. - 08/18/2007 9:15 AM CST [id number] Had presyncopal episode at work this am, better now GERD-can try zantac and maalox prn. KG Source: [facility] R[facility]XTRANSXRTFSYS Document Id: [id number] Electronically signed by Conversion, [facility] Derrick Worker [id number] at 01/25/2017 5:21 AM CDT documented in this encounter Plan of Treatment Scheduled Procedures Name Priority Associated Diagnoses Date/Time COLONOSCOPY Diarrhea documented as of this encounter Visit Diagnoses Not on filedocumented in this encounter
--- OUTSIDE RECORDS SUMMARY | 2022-06-29 09:38 | XMS_ITS | Encounter Summary ---
:1985 Author Organization [facility] Address [address] [place] [address] Care Team Providers Name Role Phone Unavailable Primary Care Provider Unavailable Encounter Details Date Type Department Care Team Description 06/01/2007 Hospital Encounter HX NO MAPPING Marisol Irving APRN, C.N.P. [address] [place], [place] [phone] (Wo rk) Social History [...] How often do you attend pentecostal or jain More than 4 time s [...]
[2022-06-29 10:59] LABS: HCG Quantitative* 198.34 mIU/mL
== END 2022-06-29 09:20 | disposition home or self-care (01) ==
LOC: NFLDREF 09:20
PROVIDERS: Visit Provider Obstetrics & Gynecology
DX: O02.1 Missed abortion (principal)
CPT/HCPCS: 84702

== ENCOUNTER 2022-07-03 10:28 | Outpatient (CLI) | payer OTHER, SELFPAY ==
--- OUTSIDE RECORDS SUMMARY | 2022-07-03 10:32 | XMS_ITS | Encounter Summary ---
:[address] [facility] Address [address] [place] [address] Care Team Providers Name Role Phone Alberto Locke M.D. Primary Care Provider Reason for Visit Outpatient (Routine) - Canceled Specialty Diagnoses / Procedures Referred By Contact Refer red To Contact Diagnoses Surveillance Intrauterine Device [place], Oluwafunmilayo O, [facility] Region Procedures US Pelvis Transvaginal and Transabdominal US Pelvis Transvaginal and Transabdominal M.DBrittaney [address] [place] [phone] Referral ID Status Reason Start Date Expiration Date Visits V isits Requested Authorized [id number] Canceled 05/13/2022 05/13/2023 1 1 Encounter Details Date Type Department Care Team Description 05/13/2022 Hospital Department of [place], Surveillance Encounter Radiology in Red Oluwafunmilayo O, Intrau terine Device [place], [place] M.DBrittaney [address] [facility] [address] [place] [phone] (Wo rk) Social History Tobacco Use Types [...] How often do you attend caodaism or mormon More than 4 time s [...] Unknown, NGA: N/A INTRAUTERINE Pole: Not seen, [place] Length: N/A Gestational Sac: Normal Yolk Sac: [...] Unknown, NGA: N/A INTRAUTERINE Pole: Not seen, [place] Length: N/A Gestational Sac: Normal Yolk Sac: [...] Depression Total Score: 9 07/08/2020 3:59 PM MARINE OILER documented as of this encounter Care Teams Constitutional Law Professor Relationship Specialty Start Date End Date Alberto Locke M.D. PCP - General Family Medicine 04/27/19 [place] [phone] documented as of this encounter
--- OUTSIDE RECORDS SUMMARY | 2022-07-03 10:32 | XMS_ITS | Encounter Summary ---
:1985 Author Organization [facility] Address [address] [place] [address] Care Team Providers Name Role Phone Alberto Locke M.D. Primary Care Provider Encounter Details Date Type Department Care Team Description 05/13/2022 Orders Only Department of [place], Surveillance Obstetrics and Rusty Santiago M.D. Intrauterine Device Gynecology in [facility] [address] (Primary Dx) [place] [address] [address] [place] [address] Social History Tobacco Use Types [...] How often do you attend anglican or mandaeism More than 4 time s [...] Depression Total Score: 9 07/08/2020 3:59 PM FOOD SERVICE LEAD documented as of this encounter Care Teams Casting Machine Operator Relationship Specialty Start Date End Date Alberto Locke M.D. PCP - General Family Medicine 04/27/19 [address] [place] [phone] documented as of this encounter
--- OUTSIDE RECORDS SUMMARY | 2022-07-03 10:32 | XMS_ITS | Encounter Summary ---
:1985 Author Organization [facility] Address [address] [place] [address] Care Team Providers Name Role Phone Alberto Locke M.D. Primary Care Provider Encounter Details Date Type Department Care Team Description 06/09/2022 Clinical Support Department of [facility] in [address] [phone] Social History Tobacco Use Types Packs/Day [...] How often do you attend hindu or roman catholic More than 4 time [...] Depression Total Score: 9 07/08/2020 3:59 PM ROLL ON MAN documented as of this encounter Care Teams Analysis Internship Relationship Specialty Start Date End Date Alberto Locke M.D. PCP - General Family Medicine 04/27/19 [address] [place] [address] documented as of this encounter
--- OUTSIDE RECORDS SUMMARY | 2022-07-03 10:32 | XMS_ITS | Encounter Summary ---
:1985 Author Organization [facility] Address [address] [place] [address] Care Team Providers Name Role Phone Alberto Locke M.D. Primary Care Provider Reason for Visit Reason Comments Ankle Injury Encounter Details Date Type Department Care Team Description 05/26/2022 Emergency [place] [facility] Reu, Jeaneth Bustillos, Inj ury Ankle Initial Right (Primary Dx); Department P.A.-C. Sprain Ankle Initial Right [address] [place] [phone] Social History Tobacco Use Types Packs/Day [...] How often do you attend hinduism or buddhist More than 4 time s [...] be sent through Care Everywhere. Ankle Sprain ([place])documented in this encounter Medications at Time of [...] disposition will be home. Nuno Quijano, ZEYAD, CONTACT CENTRE SUPERVISOR, BUCKLE WIRE INSERTER-C, AGACNP-BC, ENP-C Emergency Medicine Nuno Quijano C.N.P. [...] Hemorrhage Gastrointestinal 11/13/2017 Hypertension NOS Hypovolemic Shock ([facility]) 11/11/2017 Sleep Apnea does not use CPAP machine Patient Active Problem List Diagnosis Body Mass Index 60.0 To 69.9 Adult ([facility]) Abuse Tobacco Smoking Migraine Headache Apnea Sleep Obstructive Gastroesophageal Reflux Disease NOS Attention Deficit With Hyperactivity Disorder Depression Major Recurrent ([facility]) Diarrhea Medications: No current facility-administered medications on [...] Depression Total Score: 9 07/08/2020 3:59 PM STAFFING MGR documented as of this encounter Care Teams Senior Systems Engineer Relationship Specialty Start Date End Date Alberto Locke M.D. PCP - General Family Medicine 04/27/19 [address] [place] [phone] documented as of this encounter
--- OUTSIDE RECORDS SUMMARY | 2022-07-03 10:32 | XMS_ITS | Clinical Summary ---
:1985 Author Organization [facility] Address [address] [place] [address] Care Team Providers Name Role Phone Alberto Locke M.D. Primary Care Provider Source Comments Patient records contain information from all sites at [facility]. For routine questions regarding patient records, call [phone] during business hours, M-F 8:00 AM - 5:00 PM Central Time. Record requests for emergency care only can be directed to [phone] at any time.[facility] Allergies Active Allergy Reactions Severity Noted Date [...] Added automatically from request for guillermina arreola [id number] Body Mass Index 60.0 To 69.9 Adult [...] Added automatically from request for guillermina arreola [id number] Hemorrhage Gastrointestinal 11/13/2017 02/18/2018 Pain Right Upper Quadrant 11/11/2017 04/20/2019 Melena 11/11/2017 02/18/2018 Overview: Added automatically from request for guillermina arreola [id number] Hypovolemic Shock 11/11/2017 02/18/2018 Calculus Of Bile Duct Without Cholangitis Or Cholecystitis W ith 11/08/2017 04/20/2019 Obstruction Overview: Added automatically from request for guillermina arreola [id number] Appendicitis Acute 09/08/2017 09/17/2017 Overview: Added automatically from request for guillermina arreola [id number] Obesity Unspecified 05/01/2014 02/18/2018 Encounters Date Type [...] Nicolette Moise, Pain Knee Le ft Surgery LOCOMOTIVE FIRER, C.N.P., D.N.P. (Primar y Dx) 05/02/2022 Emergency [...] How often do you attend latter-day or catholic More than 4 time s [...] history exists Medical Devices Implanted Type Area Propagation Worker Device Shelf Model / Identifier Expiration Serial / Date Lot Hardware E.G. Hardware Abdomen Pins/Screws/Ro e.g. ds pins/screws/ rods Description: Clamp for GI bleed Nexplanon-07/20/2018 Other/Legacy - See Arm 10/07/2020 / Implanted: 07/20/2018 by Leonora Reaves APRN, C.N.P. ( Quantity not on file) Implant Description / [id number] Procedures Procedure Name Priority Date/Time Associated Comments [...] Device are in the outpatients) results section. IA REMOVAL OF Routine 05/13/2022 1:15 Surveillance Results [...] ??4:35 PM Splint Application Performed by: Jeaneth aErl P.A.-C., M. S. Authorized by: Jeaneth Earl [...] Unknown, NGA: N/A INTRAUTERINE Pole: Not seen, [place]-Rump Length: N/A Gestational Sac: Normal Yolk Sac: [...] Unknown, NGA: N/A INTRAUTERINE Pole: Not seen, [place]-Rump Length: N/A Gestational Sac: Normal Yolk Sac: [...] Rusty Guevara M.D. IMG OB US PROCEDURES IA REMOVAL OF INTRAUTERINE DEVICE (05/13/2022 1:15 PM [...] - GENE RAL ORDERABLES Performing Organization Address City/[facility] Phon e Number [facility]- [address] [place] [address] 55 515 [facility] [place] [address] System in [address] (ABNORMAL) Urinalysis with Microscopic: (05/13/2022 12:30 [...] 8.0 05/13/2022 12:51 PM CDT RDW[facility] Specific [place] >=1.030 1.001 - 1.035 05/13/2022 12:51 PM [...] Organization Address City/State/ZIP Code Phon e Number [facility]- [address] [place] [address] [place] [address] System in [place] [address] (ABNORMAL) hCG (Human Chorionic Gonadotropin), Quantitative, (05/13/2022 12:07 PM CDT) Analysis Performed At Patho logist Time Signature HCG, [address] (H) <5 IU/L 05/13/2022 RDW[facility] Quantitative, 1:11 PM CDT , P Specimen Anatomical Collection Method Collection Time Receive d Time (Source) Location / / Volume Laterality Blood (Blood, 05/13/2022 12:07 05/13/2022 Venous) PM CDT 12:21 PM CDT Rusty Guevara M.D. LAB BLOOD ADD-ON Performing Organization Address City/State/ZIP Code Phon e Number [facility]- [address] [place], [place] [address] [place] [address] System in [place] [address] from Last 3 Months Insurance Payer Benefit Plan Subscriber ID Effective Dates Phone Address Type / Group [employer] [facility] [id number] 2018-Tana [phone] [address] [id number] PPO EMPLOYEE PLAN t 2 [place] [id number] (Home) [place] [address] (Work) Advance Directives For more information, please contact: [phone] Latest Code Status on File Code Status [...] Due to: Not medically appropriate Care Teams Manager Recruitment Relationship Specialty Start Date End Date Alberto Locke M.D. PCP - General Family Medicine 04/27/19 [address] [place] [phone]
--- OUTSIDE RECORDS SUMMARY | 2022-07-03 10:32 | XMS_ITS | Encounter Summary ---
:1985 Author Organization [facility] Address [address] [place] [address] Care Team Providers Name Role Phone Alberto Locke M.D. Primary Care Provider Encounter Details Date Type Department Care Team Description 05/13/2022 Hospital Department of [place], Frequency Urin shonna Encounter Laboratory Rusty Santiago, Medicine in [address] [address] [phone] Social History Tobacco Use Types Packs/Day Years [...] How often do you attend alevism or bahai More than 4 time s [...] (05/13/2022 12:30 PM CDT) Analysis [facility] At [facility] Time Signature Source Urine, Urine, 05/13/2022 [...] 8.0 05/13/2022 12:51 PM CDT R[facility] Specific [place] >=1.030 1.001 - 1.035 05/13/2022 12:51 PM [...] M.D. LAB URINE ORDERABLES Performing Organization Address City/[facility]/ZIP Code Phon e Number [facility]- [address] [place], [place] [address] [place] [address] System in [place] [place] (ABNORMAL) Bacterial Culture, Aerobic + Susc, Urine (05/13/2022 12:30 PM CDT) [facility] gist Method Time Signature Urine Culture Mixed 05/14/2022 ECLR microbiota (A) 6:52 PM CDT Specimen Anatomical Collection Method Collection Time Receive d Time (Source) Location / / Volume Laterality Urine (Urine, 05/13/2022 12:30 05/13/2022 9:38 Midstream) PM CDT PM CDT Comment: Specimen Source Site: Urine Rusty Guevara M.D. LAB MICROBIOLOGY - GENE RAL ORDERABLES Performing Organization Address City/[facility] Phon e Number [facility]- [address] [place] [address] 54 7[address] [facility] [place] [address] System in [address] documented in this encounter Visit Diagnoses Diagnosis Frequency Urinary documented in this encounter Additional Health Concerns Assessment Noted Time PHQ-9 Depression Total Score: 9 07/08/2020 3:59 PM MYSQL DATABASE DEVELOPER documented as of this encounter Care Teams Service Promoter Salesperson Relationship Specialty Start Date End Date Alberto Locke M.D. PCP - General Family Medicine 04/27/19 [address] [facility] [place] [phone] documented as of this encounter
--- OUTSIDE RECORDS SUMMARY | 2022-07-03 10:33 | XMS_ITS | Encounter Summary ---
:1985 Author Organization [facility] Address [address] [place] [address] Care Team Providers Name Role Phone Alberto Locke M.D. Primary Care Provider Reason for Referral Specialty Diagnoses / Procedures Referred By Contact Refer red To Contact Alberto Locke M.D. [facility] Region [address] [place] [address] Referral ID Status Reason Start Date Expiration Date Visits Requ ested Visits Authorized XER Encounter Details Date Type Department Care Team Description 07/15/2021 Orders Only [facility] PCP [facility] Frankie Locke M.D. [address] [place], [place] [address] (Wo rk) Social History [...] How often do you attend pentecostal or presybeterian More than 4 time s [...] Depression Total Score: 9 07/08/2020 3:59 PM DEWAXER documented as of this encounter Care Teams Corporate Administrator Relationship Specialty Start Date End Date Alberto Locke M.D. PCP - General Family Medicine 04/27/19 [address] [place] [address] documented as of this encounter
--- OUTSIDE RECORDS SUMMARY | 2022-07-03 10:33 | XMS_ITS | Encounter Summary ---
:1985 Author Organization [facility] Address [address] [place] [address] Care Team Providers Name Role Phone Alberto Locke M.D. Primary Care Provider Reason for Visit Reason Comments Leg Swelling COVID Nurse Line Encounter Details Date Type Department Care Team Description 11/04/2021 Nurse Triage Department of [facility] Rylee Calvert, Leg Swe lling; [facility], [facility], in [place], [address] [place] [address] [place] [address] [place] [address] [phone] Social History Tobacco Use Types Packs/Day Years [...] How often do you attend confucianist or anabaptist More than 4 time s [...] to pay for the very basics like [employer] hat hard 07/09/2020 food, housing, medical care, [...] in office. Patient was warm transferred to [facility] at the clinic for further assistance. [...] frequently with soap and water, use hand olap developer if soap and water aren't available. -Wear [...] care: Yes The following references were used: [facility] novel coronavirus (COVID- 19) resources Reason for Disposition ??? [1] Thigh, calf, or ankle swelling AND [2] bilateral AND [3] 1 side is more swollen Protocols used: LEG SWELLING AND [id number] documented in this encounter Plan of Treatment Scheduled Procedures Name Priority Associated Diagnoses Date/Time COLONOSCOPY Diarrhea documented as of this encounter Visit Diagnoses Not on filedocumented in this encounter Additional Health Concerns Assessment Noted Time PHQ-9 Depression Total Score: 9 07/08/2020 3:59 PM ROLFER documented as of this encounter Care Teams Backing In Machine Tender Relationship Specialty Start Date End Date Alberto Locke M.D. PCP - General Family Medicine 04/27/19 [address] [address] documented as of this encounter
--- OUTSIDE RECORDS SUMMARY | 2022-07-03 10:33 | XMS_ITS | Encounter Summary ---
:1985 Author Organization [facility] Address [address] [place] [address] Care Team Providers Name Role Phone Alberto Locke M.D. Primary Care Provider Reason for Visit Reason Comments Immunizations flu Encounter Details Date Type Department Care Team Description 07/11/2021 Clinical Support Department of Pediatrics Sa griffin [place], in [facility] [address] [facility] [address] [place] [address] [place], [place] [phone] [address] Social History Tobacco Use Types Packs/Day [...] How often do you attend synagogue or bahai More than 4 time s [...] Depression Total Score: 9 07/08/2020 3:59 PM BARRELHEAD INSPECTOR documented as of this encounter Care Teams Pusher Runner Relationship Specialty Start Date End Date Alberto Locke M.D. PCP - General Family Medicine 04/27/19 [address] [place] [address] documented as of this encounter
--- OUTSIDE RECORDS SUMMARY | 2022-07-03 10:33 | XMS_ITS | Encounter Summary ---
:1985 Author Organization [facility] Address [address] [place] [address] Care Team Providers Name Role Phone Alberto Locke M.D. Primary Care Provider Reason for Referral Outpatient (Routine) - Authorized Specialty Diagnoses / Procedures Referred By Contact Refer red To Contact Diagnoses Edema Dyspnea On Exertion Shortness Of Breath Nichole Maria M.D. [facility] Region Procedures ECG 12 Lead [address] [place] [phone] Referral ID Status Reason Start Date Expiration Date Visits V isits Requested Authorized [id number] Authorized 11/04/2021 11/04/2022 1 1 Outpatient (Routine) - Closed Specialty Diagnoses / Procedures Referred By Contact Refer red To Contact Diagnoses Edema Dyspnea On Exertion Shortness Of Breath Nichole Maria [facility].D. [facility] Procedures DX Chest AP or PA and Lateral 2 Views [address] [place] [address] Referral ID Status Reason Start Date Expiration Date Visits Requ ested Visits Authorized [id number] Closed 11/04/2021 11/04/2022 1 1 Reason for Visit Reason Comments Edema Bilateral lower legs, with d izziness. Ongoing x several weeks Appointment Request (Routine) - Closed Specialty Diagnoses / Procedures Referred By Contact Refer red To Contact Family Medicine Referral ID Status Reason Start Date Expiration Date Visits Requ ested Visits Authorized [id number] Closed 11/04/2021 11/04/2022 1 1 Encounter Details Date Type Department Care Team Description 11/04/2021 Office Visit Department of Nichole Maria, Edema ( Primary Dx); Internal Medicine in M.D. Dyspnea On Exertion; [place], [place] [address] Shortness Of Breath; [address] [place], [place] Headache New; [place] [address] Apnea Sleep Obstructive [address] [phone] Social History Tobacco Use Types Packs/Day Years [...] section within an hour of betting to [facility]. That was 3 years ago. She has [...] concerning arrhythmias or atypical ST segmentchanges or [place] interval issues. CXR per my personal review, [...] and afebrile. Suspect benign. Conservative therapies with agas-uuv-nqimqye meds, stretching, relaxation ensuring adequate hydration and [...] d isease. Nichole CH DIAGNOSTIC IMAGING PROCE [facility] ECG 12 Lead (11/04/2021 3:40 PM CDT) P athologist Signature Ventricular Rate 82 BPM MUSE ECG/Min [place] Interval 146 ms MUSE QRSD Interval 74 ms MUSE QT Interval 360 ms MUSE QTC Interval 420 ms MUSE P [place] 49 degrees MUSE R [place] 55 degrees MUSE T Wave [place] 56 degrees MUSE Specimen Anatomical Collection Method [...] Code Phon e Number [facility]- [address] [place], [place] [address] [address] [facility] [place] [facility] [place] [address] System in [place] [address] hCG (Human Chorionic Gonadotropin), [...] Code Phon e Number [facility]- [address] [place], [place] [address] [place] [address] System in [place] [address] [place] T4 (Thyroxine), Free (11/04/2021 3:23 PM CDT) [...] Code Phon e Number [facility]- [address], [place] [address] [address] [facility] [place] [facility] [place] [address] System in [place] [address] [place] S-TSH (Thyroid-Stimulating Hormone - Sensitive) (11/04/2021 3:23 [...] Code Phon e Number [facility]- [address] [place], [place] [address] [address] [facility] [place] [facility] [place] [address] System in [place] [address] [place] [address] [place] D-Dimer (11/04/2021 3:23 PM CDT) athologist Signature [...] Code Phon e Number [facility]- [address] [place], [place] [address] [address] [facility] [address] [facility] [place] [address] System in [place] [address] [place] Basic Metabolic Panel (11/04/2021 3:23 PM CDT) [...] CDT eGFR-Black/Afric >90 >=60 11/04/2021 RDW[facility] an [place] mL/min/BSA 3:51 PM CDT Comment: ----ADDITIONAL INFORMATION---- [...] Code Phon e Number [facility]- [address] [place], [place] [address] [address] [place] [facility] [place] [address] System in [place] [address] (ABNORMAL) CBC with Differential, Blood (11/04/2021 3:23 PM CDT) [facility] Method Time Signature Hemoglobin 14.8 11.6 - [...] Code Phon e Number [facility]- [address] [place], [place] [address] [place] [address] System in [place] [address] [place] NT-Pro B-Type Natriuretic Peptide (BNP) (11/04/2021 3:23 [...] supplements. ??If the result does not [facility] clinical observations, repeat testing after patient refrains fr om the use of supplements for at least 12 hours. Specimen Anatomical Collection Method Collection Time Receive d Time (Source) Location / / Volume Laterality Blood (Blood, 11/04/2021 3:23 PM 11/05/19 3:29 Venous) CDT PM CDT Nichole Maria M.D. LAB BLOOD ADD-ON Performing Organization Address City/State/ZIP Code Phon e Number [facility]- [address] [place], [place] [address] [facility] [place] [address] System in [place] [address] [address] [place] documented in this encounter Visit Diagnoses Diagnosis Edema - Primary Dyspnea On Exertion Shortness Of Breath Headache New Apnea Sleep Obstructive Edema Dyspnea On Exertion Shortness Of Breath documented in this encounter Additional Health Concerns Assessment Noted Time PHQ-9 Depression Total Score: 9 07/08/2020 3:59 PM RUBY RAILS DEVELOPER documented as of this encounter Care Teams Television News Video Editor Relationship Specialty Start Date End Date Alberto Locke M.D. PCP - General Family Medicine 04/27/19 [address] [place] [address] documented as of this encounter
--- OUTSIDE RECORDS SUMMARY | 2022-07-03 10:33 | XMS_ITS | Encounter Summary ---
:1985 Author Organization [facility] Address [address] [place] [address] Care Team Providers Name Role Phone Alberto Locke M.D. Primary Care Provider Reason for Referral Outpatient (Routine) - Closed Specialty Diagnoses / Procedures Referred By Contact Refer marko To Contact Diagnoses Edema Dyspnea On Exertion Shortness Of Breath Nichole Maria M.D. [facility] [place] Procedures DX Chest AP or PA and Lateral 2 Views [address] [place] [address] Referral ID Status Reason Start Date Expiration Date Visits Requ ested Visits Authorized [id number] Closed 11/04/2021 11/04/2022 1 1 Reason for Visit Outpatient (Routine) - Closed Specialty Diagnoses / Procedures Referred By Contact Refer marko To Contact Diagnoses Edema Dyspnea On Exertion Shortness Of Breath Nichole Maria M.D. [facility] [place] Region Procedures DX Chest AP or PA and Lateral 2 Views [address] [place] [address] Referral ID Status Reason Start Date Expiration Date Visits Requ ested Visits Authorized [id number] Closed 11/04/2021 11/04/2022 1 1 Encounter Details Date Type Department Care Team Description 11/04/2021 Hospital Encounter Department of Nichole Maria; Radiology in Marko Barrett M.D. Dyspnea On Exertion; [place] [address] Shortness Of Breath [address] [place] [phone] Social History Tobacco Use Types Packs/Day [...] How often do you attend jainism or sabianism More than 4 time s [...] Depression Total Score: 9 07/08/2020 3:59 PM MEDICAL ECONOMICS CONSULTANT documented as of this encounter Care Teams House Player Relationship Specialty Start Date End Date Alberto Locke M.D. PCP - General Family Medicine 04/27/19 [place] [address] documented as of this encounter
--- OUTSIDE RECORDS SUMMARY | 2022-07-03 10:33 | XMS_ITS | Encounter Summary ---
:1985 Author Organization [facility] Address [address] [place] [address] Care Team Providers Name Role Phone Alberto Locke M.D. Primary Care Provider Reason for Visit Reason Onset Date Comments Testing For Upper Respiratory Virus Symptoms 01/16/2022 Encounter Details Date Type Department Care Team Description 01/16/2022 External Outreach Department of [facility] Yamel Collins Contact With And (Suspected) Exposure To COVID-19; Medicine, [place] T, P.A.-C. Infection Upper Respiratory Clinic, in [address] [address] [place], [place] [phone] [address] (Work) [phone] Social History Tobacco Use Types Packs/Day Years [...] How often do you attend sikh or rastafarian More than 4 time s [...] coordinate the care. For questions, contact the [place] Covid Care Team ([facility]): Pager: [phone] In basket: P [facility] COVID-19 POSITIVE Covid Care e-consult NOTE: At the time of testing, patients are instructed to obtain the result by calling the [employer] result line or by checking their online [...] RNA, V Symptomatic (01/16/2022 8:39 AM CDT) [facility] Method Time Signature SARS-CoV-2 Swab, 01/17/2022 ECLR Specimen Nasopharynx 8:57 PM CDT Source SARS CoV-2 Detected (A) Undetected 01/17/2022 ECLR RNA, TMA 8:57 PM CDT Comment: SARS-CoV-2 RNA present. ----ADDITIONAL INFORMATION---- This molecular amplification test was pe rformed using the Aptima SARS-CoV-2 assay ([employer] on the [employer] tem under emergency use authorization (EUA) by the U.S. Food and Drug Administ ration. Fact sheets for this EUA assay can be fo und at the following links: For Healthcare Providers: https://www.[place]ger a.gov/media/772910/download For Patients: https://www.fda.gov/media/ 874931/download Specimen Anatomical Collection Method Collection Time Receive d Time (Source) Location / / Volume Laterality Varies 01/16/2022 8:39 AM 4:18 (Nasopharynx) CDT PM CDT Venu Collins P.A.-C. LAB MICROBIOLOGY - GENERAL O BOBBY Performing Organization Address City/State/ZIP Code Phon e Number [facility]- [address] [place] [address] 80 232 [facility] [address] System in [address] documented in this encounter Visit Diagnoses Diagnosis Contact With And (Suspected) Exposure To COVID-19 Infection Upper Respiratory documented in this encounter Additional Health Concerns Infection Onset Date Last Indicated Resolved Time COVID19 Pending 01/16/2022 01/16/2022 01/17/2022 8:58 PM CDT Assessment Noted Time PHQ-9 Depression Total Score: 9 07/08/2020 3:59 PM COLLECTION CORRESPONDENT documented as of this encounter Care Teams Sample Coordinator Relationship Specialty Start Date End Date Alberto Locke M.D. PCP - General Family Medicine 04/27/19 [address] [place] [address] documented as of this encounter
--- OUTSIDE RECORDS SUMMARY | 2022-07-03 10:33 | XMS_ITS | Encounter Summary ---
:1985 Author Organization [facility] Address [address] [place] [address] Care Team Providers Name Role Phone Alberto Locke M.D. Primary Care Provider Encounter Details Date Type Department Care Team Description 05/13/2022 Hospital Department of [place], Surveillance Encounter Laboratory [place]milayo O, Intrauteri ne Device Medicine in [address] [address] [phone] Social History Tobacco Use Types Packs/Day Years [...] How often do you attend jain or mormonism More than 4 time s [...] Performed At Patho logist Time Signature HCG, [address] (H) <5 IU/L 05/13/2022 RDW[facility] Quantitative, 1:11 PM CDT , P Specimen Anatomical Collection Method Collection Time Receive d Time (Source) Location / / Volume Laterality Blood (Blood, 05/13/2022 12:07 05/13/2022 Venous) PM CDT 12:21 PM CDT Rusty Guevara M.D. LAB BLOOD ADD-ON Performing Organization Address City/State/ZIP Code Phon e Number [facility]- [address] [place] [address] [address] [place] [address] System in [place] [address] documented in this encounter Visit Diagnoses Diagnosis Surveillance Intrauterine Device documented in this encounter Additional Health Concerns Assessment Noted Time PHQ-9 Depression Total Score: 9 07/08/2020 3:59 PM PROCESS WORKER documented as of this encounter Care Teams Mortgage Loan Counselor Relationship Specialty Start Date End Date Alberto Locke M.D. PCP - General Family Medicine 04/27/19 [address] [place] [address] documented as of this encounter
--- OUTSIDE RECORDS SUMMARY | 2022-07-03 10:33 | XMS_ITS | Encounter Summary ---
:1985 Author Organization [facility] Address [address] [place] [address] Care Team Providers Name Role Phone Alberto Locke M.D. Primary Care Provider Reason for Referral Outpatient (Routine) - Authorized Specialty Diagnoses / Procedures Referred By Contact Refer red To Contact Orthopedic Surgery Nicolette Moise APRN, [facility] C.N.P., D.N.P. [address] [place] [address] Referral ID Status Reason Start Date Expiration Date Visits V isits Requested Authorized [id number] Authorized 05/05/2022 05/04/2025 1 1 RI/CAT/PET Scan (Routine) - Pending Review Specialty Diagnoses / Procedures Referred By Contact Refer red To Contact Radiology Diagnoses Pain Knee Left Nicolette Moise APRN, [facility] [place] [facility] Procedures MR Knee Left without IV Contrast C.N.P., D.N.P. [address] [place] [address] Referral ID Status Reason Start Date Expiration Date Visits V isits Requested Authorized [id number] Pending 05/05/2022 05/05/2023 1 1 Review Encounter Details Date Type Department Care Team Description 05/05/2022 Orders Only Department of Nicolette Moise L, Pain Knee L eft Orthopedic Surgery in [place], (Prim shonna Dx) Caroline Toure D.N.P. [address] [place] [phone] Social History Tobacco Use Types Packs/Day [...] How often do you attend restorationist or worship More than 4 time s [...] Depression Total Score: 9 07/08/2020 3:59 PM PLUG WIRER documented as of this encounter Care Teams Lapping Machine Operator Relationship Specialty Start Date End Date Alberto Locke M.D. PCP - General Family Medicine 04/27/19 [address] [place] [phone] documented as of this encounter
--- OUTSIDE RECORDS SUMMARY | 2022-07-03 10:33 | XMS_ITS | Encounter Summary ---
:1985 Author Organization [facility] Address [address] [place] [address] Care Team Providers Name Role Phone Alberto Locke M.D. Primary Care Provider Reason for Visit Reason Comments Outpatient COVID-19 Testing Encounter Details Date Type Department Care Team Description 07/15/2021 Emergency [place] [facility] [address] [place] [phone] Social History Tobacco Use Types [...] or relatives? How often do you attend catholic or church More than 4 time s per year 07/09/2020 services? Do you belong to any clubs or organizations No 04/19/2019 such as catholic groups, unions, fraternal or athletic groups, [...] - - Pulse 101 07/15/2021 8:01 PM GLASS INSPECTOR Temperature - - Respiratory Rate 18 07/15/2021 8:01 PM GLASS INSPECTOR Oxygen Saturation 94% 07/15/2021 8:01 PM GLASS INSPECTOR Inhaled Oxygen Concentration - - Weight - - Height - - Body Mass Index - - documented in this encounter Discharge Instructions Discharge InstructionsMichelle Kennedy R.N. - 07/15/2021 8:22 PM CST COVID-19 disease from Coronavirus is rapidly changing. We recognize the uncertainty you may feel at this time, and want to assure you that [facility] is committed to your health and safety. To stay informed, it is highly recommended you seek information from a website that has the most accurate and recent information such as the CDC: https://www.cdc.gov/coronavirus/2019-ncov/downloads/hrof-yxjw-1919- zRaH-kmyk-qrhzx.pdf [place] Messages from the CDC link above. [...] positive, patients will be contacted by a [facility] provider. S INSPECTOR documented in this encounter Medications at Time [...] Result s for this COV-2, PCR, RAPID,V GLASS INSPECTOR procedur e are in the results section. documented in this encounter Results Influenza A/B, SARS CoV-2, PCR, Rapid, Varies Symptomatic (07/15/2021 8:11 PM GLASS INSPECTOR) [facility] gist Method Time Signature Influenza A, Negative Negative 07/15/2021 CNFL PCR, Rapid, V 8:38 PM GLASS INSPECTOR Influenza B, Negative Negative 07/15/2021 CNFL PCR, Rapid, V 8:38 PM GLASS INSPECTOR SARS CoV-2, Undetected Undetected 07/15/2021 CNFL PCR, Rapid, V 8:38 PM GLASS INSPECTOR Comment: ----ADDITIONAL INFORMATION---- This RT-PCR test was performed using the Javy SARS-CoV-2 and Influenza A/B Reagent assay from [employer], which has received Emergency Use Authori zation(EUA) by the U.S. Food and Drug Administration . Fact sheets for this Emergency Use Autho rization (EUA) assay can be found at the following link s: For Healthcare Providers: https://www.fda.gov/media/168970/downloa d For Patients: https://www.fda.gov/media/937213/downloa d Infl A/B, SARS CoV-2, PCR, Source Swab, Nasopharynx 07/15/2021 8:38 PM GLASS INSPECTOR CNFL Specimen Anatomical Collection Method Collection Time Receive d Time (Source) Location / / Volume Laterality Varies 07/15/2021 8:11 PM 8:17 (Nasopharynx) GLASS INSPECTOR PM GLASS INSPECTOR Cedric Bush P.A.-C. LAB MICROBIOLOGY - GENERAL O RDERABLES Performing Organization Address City/State/ZIP Code Phon e Number [facility]- [address] [place] [address] [place] [address] System [address] documented in this encounter Visit Diagnoses Not on filedocumented in this encounter Additional Health Concerns Infection Onset Date Last Indicated Resolved Time COVID19 Pending 07/15/2021 07/15/2021 07/15/2021 8:38 PM GLASS INSPECTOR Assessment Noted Time PHQ-9 Depression Total Score: 9 07/08/2020 3:59 PM GLASS INSPECTOR documented as of this encounter Care Teams Rn Research Relationship Specialty Start Date End Date Alberto Locke M.D. PCP - General Family Medicine 04/27/19 [address] [place] [phone] documented as of this encounter
--- OUTSIDE RECORDS SUMMARY | 2022-07-03 10:33 | XMS_ITS | Encounter Summary ---
:1985 Author Organization [facility] Address [address] [place] [address] Care Team Providers Name Role Phone Alberto Locke M.D. Primary Care Provider Encounter Details Date Type Department Care Team Description 05/02/2022 Emergency [place] [facility] [place], Carlie Bronchitis (Primary Department A, SHIP BOAT OR BARGE MATE, C.N.P., Dx) [address] [place], [place] [address], [place] [address] [address] [place], [place] [phone] (Wo rk) Social History Tobacco Use [...] How often do you attend mandaen or mu-ism More than 4 time s [...] sent through Care Everywhere. Acute Bronchitis Adult Qldq-ae-Mhrc (Japanese)documented in this encounter Medications at Time of [...] Depression Total Score: 9 07/08/2020 3:59 PM SUPERVISOR SCENIC ARTS documented as of this encounter Care Teams Manager Of Environmental Services Relationship Specialty Start Date End Date Alberto Locke M.D. PCP - General Family Medicine 04/27/19 [address] [address] documented as of this encounter
--- OUTSIDE RECORDS SUMMARY | 2022-07-03 10:33 | XMS_ITS | Encounter Summary ---
:1985 Author Organization [facility] Address [address] [place] [address] Care Team Providers Name Role Phone Alberto Locke M.D. Primary Care Provider Reason for Visit Reason Comments Vomiting Diarrhea COVID Nurse Line Encounter Details Date Type Department Care Team Description 02/17/2022 Nurse Triage Department of [facility] Gina Su V omiting; Diarrhea; Medicine, [place] O, R.N. COVID Nurse Line Clinic, in [place], [address] [place] [address] [address] [facility] [address] [place] [address] Social History Tobacco Use Types [...] How often do you attend samaritan or voodoo More than 4 time s [...] 3 days. Patient was warm transferred to [place] at the clinic for further assistance. Reason for Disposition ? ? [1] MILD vomiting with diarrhea AND [2] present > 5 days Protocols used: [id number] Care Advice Patient/Caregiver understands and will follow [...] Powerade). * Other options: 1/2 strength flat lemon-manzanita soda or yenni stewart. * After 4 [...] RSV and Strep Select appropriate region: : [place] Are all of the following Strep criteria [...] frequently with soap and water, use hand security services specialist if soap and water aren't available. -Wear [...] The following references were used: [facility] novel coronavirus (COVID- 19) resources documented in this encounter Plan of Treatment Scheduled Procedures Name Priority Associated Diagnoses Date/Time COLONOSCOPY Diarrhea documented as of this encounter Visit Diagnoses Not on filedocumented in this encounter Additional Health Concerns Assessment Noted Time PHQ-9 Depression Total Score: 9 07/08/2020 3:59 PM SOLDERER PRODUCTION LINE documented as of this encounter Care Teams Radon Inspector Relationship Specialty Start Date End Date Alberto Locke M.D. PCP - General Family Medicine 04/27/19 [address] [place] [address] documented as of this encounter
--- OUTSIDE RECORDS SUMMARY | 2022-07-03 10:33 | XMS_ITS | Encounter Summary ---
:1985 Author Organization [facility] Address [address] [place] [address] Care Team Providers Name Role Phone Alberto Locke M.D. Primary Care Provider Reason for Visit Reason Comments Follow-up Encounter Details Date Type Department Care Team Description 05/13/2022 Clinical Communication Department of Nichole Ivey Follow-up Obstetrics and A, R.N. Gynecology in [address] [address] [place], [place] [phone] (Work) [phone] Social History Tobacco Use Types Packs/Day Years [...] How often do you attend druze or amish More than 4 time s [...] to pay for the very basics like AMS-Qi hat hard 07/09/2020 food, housing, medical care, [...] and informed of plan. Patient transferred to information receptionist to schedule. Warning signs for ectopic [...] Organization Address City/State/ZIP Code Phon e Number [facility]- [address] [place] [address] [address] [facility] [place] [address] (ABNORMAL) hCG (Human Chorionic Gonadotropin), Quantitative, (05/13/2022 12:07 PM CDT) Analysis Performed At [facility] Time Signature HCG, [address] (H) <5 IU/L 05/13/2022 R[facility] Quantitative, 1:11 PM CDT , P Specimen Anatomical Collection Method Collection Time Receive d Time (Source) Location / / Volume Laterality Blood (Blood, 05/13/2022 12:07 05/13/2022 Venous) PM CDT 12:21 PM CDT Rusty Guevara M.D. LAB BLOOD ADD-ON Performing Organization Address City/[facility]/ZIP Code Phon e Number [facility]- [address] [facility] [place] [address] System in [place] Jeffrey [address] documented in this encounter Visit Diagnoses Diagnosis Surveillance Intrauterine Device - Prima ry Frequency Urinary documented in this encounter Additional Health Concerns Assessment Noted Time PHQ-9 Depression Total Score: 9 07/08/2020 3:59 PM PASTRYCOOK documented as of this encounter Care Teams Lean Manager Relationship Specialty Start Date End Date Alberto Locke M.D. PCP - General Family Medicine 04/27/19 [place] [phone] documented as of this encounter
--- OUTSIDE RECORDS SUMMARY | 2022-07-03 10:33 | XMS_ITS | Encounter Summary ---
:1985 Author Organization [facility] Address [address] [place] [address] Care Team Providers Name Role Phone Alberto Locke M.D. Primary Care Provider Reason for Referral Outpatient (Routine) - Authorized Specialty Diagnoses / Procedures Referred By Contact Refer red To Contact Family Medicine Diagnoses Diarrhea Pain Generalized Abdominal Nausea Alaina Stratton APRN [facility] C.N.P., D.N.P. [address] [place] [address] Referral ID Status Reason Start Date Expiration Date Visits V isits Requested Authorized [id number] Authorized 02/17/2022 02/17/2023 1 1 Reason for Visit Reason Comments Symptom Assessment Encounter Details Date Type Department Care Team Description 02/17/2022 Office Visit Department of Alaina Stratton Diarrhea (Pr imary Dx); Internal Medicine in JOSEFA Bustillos, C.N.P., [place]; [place], [place] D.N.P. Pain Generalized Abdominal; [address] Shortness Of Breath; [place], [place] Gastroesophagea l Reflux Disease Without Esophagitis [phone] Social History Tobacco Use Types Packs/Day Years [...] How often do you attend catholic or adventist More than 4 time s [...] when she tries to eat. Recommended trying [id number] Prilosec daily for up to 30 days. [...] Name Type Priority Associated Diagnoses Order S [facility] Medicine Outpatient Referral Routine Diarrhea Expected: [...] Panel, PCR, Feces (02/17/2022 7:48 PM CDT) [facility] Method Time Signature Specimen Source STOOL [...] using the FDA-cl eared FilmArray GI Panel ([employer] Specimen Anatomical Collection Method Collection Time Receive d Time (Source) Location / / Volume Laterality Stool (Stool) 02/17/2022 7:48 PM 02/18/20 7:48 CDT PM CDT Alaina Stratton APRN C.N.P., D.N.P. LAB MICROBIOLOGY - GENERAL ORDERABLES Performing Organization Address City/State/ZIP Code Phon e Number [facility]- [address] [place] [address] [address] [facility] [place] [address] System in [address] Test, POCT, Urine (lab) (02/17/2022 7:47 PM CDT) athologist Signature Negative 02/17/2022 RDW[facility] Test, POCT, U 7:52 PM CDT Specimen Anatomical Collection Method Collection Time Receive d Time (Source) Location / / Volume Laterality Urine 02/17/2022 7:47 PM 7:47 CDT PM CDT Kendal Rosenberg APRNN.Marcio, D.N.P. LAB POCT ORDERABL ES - DEVICE Performing Organization Address City/State/ZIP Code Phon e Number [facility]- [address] [place], [place] [address] [address] [facility] [place] [place] [address] System in [place] [address] [facility] NT-Pro B-Type Natriuretic Peptide (BNP) (02/17/2022 6:38 [...] Organization Address City/State/ZIP Code Phon e Number [facility]- [address] [place], [place] [address] [facility] [place] [facility] [place] [address] System in [place] [address] [place] (ABNORMAL) CRP (C-Reactive Protein) (02/17/2022 6:38 PM [...] Organization Address City/State/ZIP Code Phon e Number [facility]- [address] [place], [place] [address] [facility] [place] [address] System in [place] [address] [place] [address] Lipase (02/17/2022 6:38 PM CDT) athologist [facility] Lipase, P 22 13 - 60 U/L 02/17/2022 7:10 RDWG PM CDT Specimen Anatomical Collection Method Collection Time Receive d Time (Source) Location / / Volume Laterality Blood (Blood, 02/17/2022 6:38 PM 02/18/20 22 6:44 Venous) CDT PM CDT Alaina Stratton APRN, Marlyn.N.P., D.N.P. LAB BLOOD ADD-ON Performing Organization Address City/State/ZIP Code Phon e Number [facility]- [address] [place], [place] [address] [facility] [place] [facility] [place] [address] System in [place] [facility] Comprehensive Metabolic Panel (02/17/2022 6:38 PM CDT) [...] CDT eGFR-Black/Afric >90 >=60 02/17/2022 R[facility] an Canadian mL/min/BSA 7:10 PM CDT Comment: ----ADDITIONAL INFORMATION---- [...] Organization Address City/State/ZIP Code Phon e Number [facility]- [address] [place], [place] [address] [facility] [place] [facility] [place] [address] System in [place] [address] (ABNORMAL) CBC with Differential, Blood (02/17/2022 6:38 PM CDT) [facility] Method Time Signature Hemoglobin 15.5 (H) [...] Organization Address City/State/ZIP Code Phon e Number [facility]- [address] [place], [place] [address] [place] [address] System in [place] [address] [address] documented in this encounter Visit Diagnoses Diagnosis Diarrhea - Primary Nausea Pain Generalized Abdominal Shortness Of Breath Gastroesophageal Reflux Disease Without Esophagitis documented in this encounter Additional Health Concerns Assessment Noted Time PHQ-9 Depression Total Score: 9 07/08/2020 3:59 PM BOTTOM WORKER documented as of this encounter Care Teams Drop Wirer Relationship Specialty Start Date End Date Alberto Locke M.D. PCP - General Family Medicine 04/27/19 [address] [place] [address] documented as of this encounter
--- OUTSIDE RECORDS SUMMARY | 2022-07-03 10:33 | XMS_ITS | Encounter Summary ---
:1985 Author Organization [facility] Address [address] [place] [address] Care Team Providers Name Role Phone Alberto Locke M.D. Primary Care Provider Reason for Referral Outpatient (Routine) - Authorized Specialty Diagnoses / Procedures Referred By Contact Refer red To Contact Diagnoses Surveillance Intrauterine Device Examination Test With Positive Result (HCC) Rusty Guevara [facility] Procedures IUD Removal M.Kelly [address] [place] [address] Referral ID Status Reason Start Date Expiration Date Visits V isits Requested Authorized [id number] Authorized 05/13/2022 05/13/2023 1 1 utpatient (Routine) - Authorized Specialty Diagnoses / Referred By Contact Referred To Procedures Contact Obstetrics and Rusty Guevara [facility] Gynecology Sera Santiago [address] [place] [address] Referral ID Status Reason Start Date Expiration Date Visits V isits Requested Authorized [id number] Authorized 05/13/2022 05/12/2025 1 1 Reason for Visit Reason Comments Follow-up Appointment Request (Routine) - Closed Specialty Diagnoses / Procedures Referred By Contact Refer red To Contact Obstetrics and Gynecology Referral ID Status Reason Start Date Expiration Date Visits Requ ested Visits Authorized [id number] Closed 05/13/2022 05/13/2023 1 Encounter Details Date Type Department Care Team Description 05/13/2022 Office Visit Department of [place], Not Reason For Visit (HCC) (Primary Dx); Obstetrics and Rusty Santiago M.D. Surveillance Intrauterine Device; Gynecology in [facility] [address] Infection Urinary Tract Acute; [place], [place] Examination Test W ith Positive Result (HCC) [address] [facility] [address] [place], [place] [phone] (Wo rk) [address] [phone] Social History Tobacco Use Types Packs/Day Years [...] How often do you attend restoration or baptist More than 4 time s per year [...] 07/2020. She denies any abdominal pain. OBJECTIVE Straw Baler- Taryn Ruiz OXYGEN THERAPIST VITAL SIGNS Blood Pressure: (139)/(71) 139/71 Weight: [...] PM Result Value HCG, Quantitative, , P [address] (H) Urinalysis with Microscopic: Collection Time: 05/13/22 12:30 PM Result Value Source Urine, Urine, Midstream Clarity Slightly Cloudy (A) Color Yellow Blood Large (A) Nitrite Negative Leukocyte Esterase Moderate (A) Protein Trace Glucose Negative Ketones, QI(U) Negative Bilirubin Negative pH 5.5 Specific [place] >=1.030 Urobilinogen 0.2 White Blood Cells 11-20 [...] for a repeat ultrasound to confirm viability. AEMT documented in this encounter Plan of Treatment [...] Name Priority Date/Time Associated Diagnosis Comme nts RI REMOVAL OF Routine 05/13/2022 1:15 PM Surveillance Results for this INTRAUTERINE DEVICE CDT Intrauterine Device procedure are in the results Examination Test section. With Positive Result (HCC) documented in this encounter Results RI REMOVAL OF INTRAUTERINE DEVICE (05/13/2022 1:15 PM [...] Depression Total Score: 9 07/08/2020 3:59 PM DIRECTOR PAYER documented as of this encounter Care Teams Director Operating Relationship Specialty Start Date End Date Alberto Locke M.D. PCP - General Family Medicine 04/27/19 [address] [place] [address] documented as of this encounter
--- OUTSIDE RECORDS SUMMARY | 2022-07-03 10:33 | XMS_ITS | Encounter Summary ---
:1985 Author Organization [facility] Address [address] [place] [address] Care Team Providers Name Role Phone Alberto [...] Type Department Care Team Description 02/21/2022 Emergency [place] [facility] [place], Infection Urinary Department Ray Mustafa M.D. Tract (Primary Dx) [address] [place], [place] [address] [phone] (Wo rk) Social History Tobacco Use Types [...] How often do you attend lutheran or religion More than 4 time s [...] were examined and treated today in the [facility] Emergency Department (ED) on an emergency basis. [...] through Care Everywhere. Urinary Tract Infection Adult ([place] Helen[place])documented in this encounter Medications at Time of [...] 3:35 AM CDT) Analysis [facility] At [facility] Time Signature Source Urine, Urine, 02/21/2022 [...] 8.0 02/21/2022 3:44 AM CDT [facility] Specific [place] 1.022 1.001 - 1.035 02/21/2022 3:44 AM [...] Address City/State/ZIP Code Phon e Number [facility]- [address] [place] [address] [address] [place] [address] System in [place] [address] [place] [address] Basic Metabolic Panel (02/21/2022 2:36 AM CDT) [...] CDT eGFR-Black/Afric >90 >=60 02/21/2022 R[facility] an Nicaraguan mL/min/BSA 3:03 AM CDT Comment: ----ADDITIONAL INFORMATION---- [...] Address City/State/ZIP Code Phon e Number [facility]- [address] [place] [address] [place], [place] [address] [facility] [place] [facility] [address] System in [place] [place] CBC with Differential, Blood (02/21/2022 [...] Address City/State/ZIP Code Phon e Number [facility]- [address] [place], [place] [address] [facility] [place] [address] System in [place] [address] (ABNORMAL) Blood Gas with Coox, Venous (02/21/2022 2:36 AM CDT) [facility] gist Method Time Signature Venous Sample [...] Address City/State/ZIP Code Phon e Number [facility]- [address] [place], [place] [address] [address] [place] [address] System in [place] [address] documented in this encounter Visit Diagnoses Diagnosis Infection Urinary Tract - Primary documented in this encounter Additional Health Concerns Assessment Noted Time PHQ-9 Depression Total Score: 9 07/08/2020 3:59 PM SENIOR LITIGATION PARALEGAL documented as of this encounter Care Teams Drill Sharpener Relationship Specialty Start Date End Date Alberto Locke M.D. PCP - General Family Medicine 04/27/19 [address] [place] [phone] documented as of this encounter
--- OUTSIDE RECORDS SUMMARY | 2022-07-03 10:33 | XMS_ITS | Encounter Summary ---
:1985 Author Organization [facility] Address [address] [place] [address] Care Team Providers Name Role Phone Alberto Locke M.D. Primary Care Provider Encounter Details Date Type Department Care Team Description 02/25/2022 Orders Only [facility] Sa emma Lemos M.D. Screening Lipid [address] [place] [phone] (Wo rk) Social History Tobacco Use Types [...] How often do you attend religious or yarsanism More than 4 time s [...] Total Score: 9 07/08/2020 3:59 PM MANAGER ENVIRONMENTAL SERVICES documented as of this encounter Care Teams Vice President Investor Relations Relationship Specialty Start Date End Date Alberto Locke M.D. PCP - General Family Medicine 04/27/19 [address] [place] [address] documented as of this encounter
--- OUTSIDE RECORDS SUMMARY | 2022-07-03 10:33 | XMS_ITS | Encounter Summary ---
:1985 Author Organization [facility] Address [address] [place] [address] Care Team Providers Name Role Phone Alberto Locke M.D. Primary Care Provider Encounter Details Date Type Department Care Team Description 01/16/2022 Admin Visit Department of [facility] Ian Hays, [facility] [address] [place] [address] [address] [place] [phone] (Wo rk) Social History Tobacco Use Types [...] How often do you attend samaritan or buddhism More than 4 time s [...] to pay for the very basics like [employer] hat hard 07/09/2020 food, housing, medical care, [...] Total Score: 9 07/08/2020 3:59 PM SENIOR TELECOMMUNICATIONS CONSULTANT documented as of this encounter Care Teams Natural Resource Specialist Relationship Specialty Start Date End Date Alberto Locke M.D. PCP - General Family Medicine 04/27/19 [address] [place] [address] documented as of this encounter
--- OUTSIDE RECORDS SUMMARY | 2022-07-03 10:33 | XMS_ITS | Encounter Summary ---
:1985 Author Organization [facility] Address 200 [place] [address] Care Team Providers Name Role Phone Alberto Locke M.D. Primary Care Provider Reason for Visit Reason Comments Results [facility] Encounter Details Date Type Department Care Team Description 01/18/2022 Clinical Communication Division of Tracy Wolf ([facility]) Community Internal Kimberli Purdy R.N. [facility] 200 [facility] [address] [place] [phone] 200 [facility] [place] [id number] Social History Tobacco Use Types Packs/Day Years [...] How often do you attend catholic or faith More than 4 time s [...] to pay for the very basics like [employer] hat hard 07/09/2020 food, housing, medical care, [...] 3:55 PM CDT MWCCT TELEPHONE COMMUNICATION NOTE Sales Enablement Consultant: None The patient was called regarding a [...] [facility] for [facility]. Treatment Options Discussion [...] effects may happen. You would need to machine operator hop picker and start the medication within 5 days of symptom onset, and you would take the medication twice a day for 5 days. You would need to have someone who is not in isolation or quarantine for COVID-19 machine operator hop picker the prescription at a [facility] pharmacy. The medication is provided at no [...] effects of the drug on milk production. [facility] advises that mothers should pump and dump [...] to decide.The patient was counselled to call [facility] at [phone] if they change their mind. Reviewed that [...] references were used: Nursing or Provider judgement, [facility], [facility] Protocols Kimberli Wolf R.N. [place] [facility] Care Team [facility] and [facility] Telephone Encounter - Kimberli Wolf R.N. - [...] for: Paxlovid and Molnupiravir. Kimberli Wolf R.N. [place] [facility] Care Team and [place] [facility] Infusion Therapy Team [facility] and [facility] documented in this encounter Plan of Treatment Scheduled Procedures Name Priority Associated Diagnoses Date/Time COLONOSCOPY Diarrhea documented as of this encounter Visit Diagnoses Not on filedocumented in this encounter Additional Health Concerns Infection Onset Date Last Indicated Resolved Time COVID19 01/16/2022 01/16/2022 02/05/2022 9:06 AM CDT Assessment Noted Time PHQ-9 Depression Total Score: 9 07/08/2020 3:59 PM GLOVE BRUSHER documented as of this encounter Care Teams Stock Counter Relationship Specialty Start Date End Date Alberto Locke M.D. PCP - General Family Medicine 04/27/19 [address] [place] [address] documented as of this encounter
--- OUTSIDE RECORDS SUMMARY | 2022-07-03 10:34 | XMS_ITS | Encounter Summary ---
:1985 Author Organization [facility] Address [address] [place] [address] Care Team Providers Name Role Phone Alberto Locke M.D. Primary Care Provider Reason for Visit Outpatient (Routine) - Closed Specialty Diagnoses / Procedures Referred By Contact Refer red To Contact Tammie Snyder APRN, C.NJud, M [facility] M.S.N. [address] [place] [address] [phone] Referral ID Status Reason Start Date Expiration Date Visits Requ ested Visits Authorized [id number] Closed 07/09/2020 07/09/2021 1 1 Encounter Details Date Type Department Care Team Description 07/09/2020 Office Visit Urgent Care in [facility] Tammie Snyder APRN, C.NLebron., M.S.N. [address] [place] [phone] Pharyngitis [place], [place] Bree Burt L.PBrittaneyNBrittaney (Primary Dx) [address] [place] [address] Social History Tobacco Use Types [...] How often do you attend adventism or nondenominational More than 4 time s [...] 07/09/2020 3:45 PM CST Strep test complete GRINDER TENDER documented in this encounter Miscellaneous Notes Result Encounter Note - Suzanne Almodovar P.A.-C. - 07/10/2020 12:53 PM MEAL GRINDER TENDER Results were negative for strep. GRINDER TENDER documented in this encounter Plan of Treatment Scheduled Procedures Name Priority Associated Diagnoses Date/Time COLONOSCOPY Diarrhea documented as of this encounter Procedures Procedure Name Priority Date/Time Associated Diagnosis Comme nts GROUP A STREP PCR, STAT 07/09/2020 4:04 PM Pharyngitis Acut e Results for this THROAT MEAL GRINDER TENDER procedure are i n the results section. documented in this encounter Results Streptococcus Group A, Molecular Detection, PCR, Throat (07/09/2020 4:04 PM MEAL GRINDER TENDER) P athologist Signature Group A Strep Negative Negative 07/09/2020 [facility] PCR, Throat 4:36 PM MEAL GRINDER TENDER Specimen Anatomical Collection Method Collection Time Receive d Time (Source) Location / / Volume Laterality Varies (Throat) 07/09/2020 4:04 PM 2019 4:04 MEAL GRINDER TENDER PM MEAL GRINDER TENDER Erlin Link P.A.-C. LAB MICROBIOLOGY - GENERAL O RDERABLES Performing Organization Address City/State/ZIP Code Phon e Number [facility]- [address] [place], [place] [address] [place] [address] System in [place] [address] documented in this encounter Visit Diagnoses Diagnosis Pharyngitis Acute - Primary documented in this encounter Additional Health Concerns Assessment Noted Time PHQ-9 Depression Total Score: 9 07/08/2020 3:59 PM MEAL GRINDER TENDER documented as of this encounter Care Teams Pr Manager Relationship Specialty Start Date End Date Alberto Locke M.D. PCP - General Family Medicine 04/27/19 [address] [place] [address] documented as of this encounter
--- OUTSIDE RECORDS SUMMARY | 2022-07-03 10:34 | XMS_ITS | Encounter Summary ---
:1985 Author Organization [facility] Address [address] [place] [address] Care Team Providers Name Role Phone Alberto Locke M.D. Primary Care Provider Reason for Referral Outpatient (Routine) - Closed Specialty Diagnoses / Procedures Referred By Contact Refer janell To Contact Orthopedic Surgery Diagnoses Pain Knee Left Suzanne Almodovar [facility] P.A.-C. [address] [place] [address] Referral ID Status Reason Start Date Expiration Date Visits Requ ested Visits Authorized [id number] Closed 04/14/2021 04/14/2022 1 1 Scheduling Instructions Ortho internal referral panel order, bobbi ging before Consult visit Reason for Visit Reason Comments Leg Pain Left Appointment Request (Routine) - Closed Specialty Diagnoses / Procedures Referred By Contact Refer janell To Contact Family Medicine Referral ID Status Reason Start Date Expiration Date Visits Requ ested Visits Authorized [id number] Closed 04/14/2021 04/14/2022 1 1 Encounter Details Date Type Department Care Team Description 04/14/2021 Office Visit Urgent Care in [facility] Suzanne Almodovar Pain Knee Left [place], [place] Nena, P.A.-C. (Primary Dx) 701 [facility] 701 [place] [phone] Social History Tobacco Use Types Packs/Day [...] How often do you attend nondenominational or yazidi More than 4 time s [...] biking or low impact water aerobics. ?? Rkrg-xdo-uibdnat and prescription medications. Your health care provider may recommend msjy-ghv-tstuiek medications and prescribe medications to help with [...] health care provider. ? 2014 [facility] [employer] (MER). All rights reserved. [id number] documented in this encounter Progress Notes Suzanne [...] Depression Total Score: 9 07/08/2020 3:59 PM COMPRESSED YEAST SUPERVISOR documented as of this encounter Care Teams Heater Furnace Relationship Specialty Start Date End Date Alberto Locke M.D. PCP - General Family Medicine 04/27/19 [address] [place] [phone] documented as of this encounter
--- OUTSIDE RECORDS SUMMARY | 2022-07-03 10:34 | XMS_ITS | Encounter Summary ---
:1985 Author Organization [facility] Address [address] [place] [address] Care Team Providers Name Role Phone Alberto Locke M.D. Primary Care Provider Encounter Details Date Type Department Care Team Description 04/14/2021 Hospital Encounter Department of Suzanne Almodovar Pain Knee Left Radiology in [place], P.ABrittaney-Marlyn [address] [phone] Social History Tobacco Use Types Packs/Day Years [...] How often do you attend hinduism or scientology More than 4 time s [...] Depression Total Score: 9 07/08/2020 3:59 PM LABEL PRESS OPERATOR documented as of this encounter Care Teams Densitometrist Relationship Specialty Start Date End Date Alberto Locke M.D. PCP - General Family Medicine 04/27/[address] [place] [phone] documented as of this encounter
--- OUTSIDE RECORDS SUMMARY | 2022-07-03 10:34 | XMS_ITS | Encounter Summary ---
:1985 Author Organization [facility] Address [address] [place] [address] Care Team Providers Name Role Phone Alberto [...] How often do you attend nondenominational or episcopalian More than 4 time s [...] Total Antibody, Serum (03/12/2020 5:36 PM CDT) [facility] Method Time Signature SARS-CoV-2 Negative Negative [...] ----ADDITIONAL INFORMATION---- Testing was performed using the Jayv El ecsys Yzky-JSJF-SjH-2 Reagent assay from [employer], which has received Emergency Use Authori zation(EUA) by the U.S. Food and Drug Administration . Fact sheets for this Emergency Use Autho rization (EUA) assay can be found at the following link s: For Healthcare Providers: https://www.fda.gov/media/873634/downloa d For Patients: https://www.fda.gov/media/681862/downloa d Specimen Anatomical Collection Method Collection Time Receive d Time (Source) Location / / Volume Laterality Blood (Blood, 03/12/2020 5:36 PM 03/13/20 20 3:23 Venous) CDT PM CDT Covid Serology Testing Employer Based LAB MICROBIOLOGY - BLOOD ORDERABLES Performing Organization Address City/State/ZIP Code Phon e Number [facility]- [address] [place] [phone] [facility] [place] [address] System [address] documented in this encounter Visit Diagnoses Diagnosis Encounter For Screening For Other Viral Diseases (COVID-19) - Primary documented in this encounter Additional Health Concerns Assessment Noted Time PHQ-9 Depression Total Score: 11 03/05/2020 4:06 PM CD T documented as of this encounter Care Teams Brine Tank Tender Relationship Specialty Start Date End Date Alberto Locke M.D. PCP - General Family Medicine 04/27/19 [address] [place] [address] documented as of this encounter
--- OUTSIDE RECORDS SUMMARY | 2022-07-03 10:34 | XMS_ITS | Encounter Summary ---
:1985 Author Organization [facility] Address [address] [place] [address] Care Team Providers Name Role Phone Alberto Locke M.D. Primary Care Provider Reason for Visit Reason Onset Date Comments Outpatient COVID-19 Testing 07/08/2020 Encounter Details Date Type Department Care Team Description 07/08/2020 External Outreach Department of Yamel Sandoval Infection Upper Medicine, [place] Marcio SanchezARavi Respiratory (Primary Clinic, in [place], [address] Dx) [place], [place] [address] [address] [place], [place] [phone] [address] (Work) [phone] Social History Tobacco Use Types Packs/Day Years [...] or relatives? How often do you attend sikhism or zoroastrianism More than 4 time s per year 07/09/2020 services? Do you belong to any clubs or organizations No 04/19/2019 such as sikhism groups, unions, fraternal or athletic groups, or [...] Encounter created for the drive-through COVID-19 testing. L MARKETING INTERN documented in this encounter Plan of Treatment Scheduled Procedures Name Priority Associated Diagnoses Date/Time COLONOSCOPY Diarrhea documented as of this encounter Procedures Procedure Name Priority Date/Time Associated Diagnosis Comme nts SARS CORONAVIRUS-2 Routine 07/08/2020 1:34 PM Infection Upper Results for this RNA, V EMAIL MARKETING INTERN Respiratory procedure are i n the results section. documented in this encounter Results SARS Coronavirus-2 RNA, V Symptomatic (07/08/2020 1:34 PM EMAIL MARKETING INTERN) [facility] Method Time Signature SARS-CoV-2 Swab, 07/09/2020 [facility] Specimen Nasopharynx 5:11 AM EMAIL MARKETING INTERN Source SARS CoV-2 Undetected Undetected 07/09/2020 [facility] RNA, TMA 5:11 AM EMAIL MARKETING INTERN Comment: SARS-CoV-2 RNA absent. This result does not rule out COVID-19 in the patient, as the sensitivity of the test depends o n the timing of the specimen collection and the quality of the specim en. Result should be correlated with patient's history and clinical presentat ion. ----ADDITIONAL INFORMATION---- This test is performed using the Aptima SARS-CoV-2 assay ([employer] which has received Emergency Use Authori zation (EUA) by the U.S. Food and Drug Administration. Fact sheets for this Emergency Use Autho rization (EUA) assay can be found at the following links: For Healthcare Providers: https://www.fd a.gov/media/629222/download For Patients: https://www.fda.gov/media/ 982857/download Specimen Anatomical Collection Method Collection Time Receive d Time (Source) Location / / Volume Laterality Varies 07/08/2020 1:34 PM 0 9:39 (Nasopharynx) EMAIL MARKETING INTERN PM EMAIL MARKETING INTERN Venu Collins P.A.-C. LAB MICROBIOLOGY - GENERAL O RDERABLES Performing Organization Address City/State/ZIP Code Phon e Number [facility]- [address] [place] [address] [phone] [facility] [place] [address] System [address] documented in this encounter Visit Diagnoses Diagnosis Infection Upper Respiratory - Primary documented in this encounter Additional Health Concerns Infection Onset Date Last Indicated Resolved Time COVID19 Pending 07/08/2020 07/08/2020 07/09/2020 5:11 AM EMAIL MARKETING INTERN Assessment Noted Time PHQ-9 Depression Total Score: 9 07/08/2020 3:59 PM EMAIL MARKETING INTERN documented as of this encounter Care Teams Design Release Engineer Relationship Specialty Start Date End Date Alberto Locke M.D. PCP - General Family Medicine 04/27/19 [address] [place] [phone] documented as of this encounter
--- OUTSIDE RECORDS SUMMARY | 2022-07-03 10:34 | XMS_ITS | Encounter Summary ---
:1985 Author Organization [facility] Address [address] [place] [address] Care Team Providers Name Role Phone Alberto Locke M.D. Primary Care Provider Encounter Details Date Type Department Care Team Description 05/01/2021 Clinical Communication Department of [facility] Alberto Fregoso M.D. [facility], [address], [facility] [phone] [place] [address] [place], [place] (Work) [phone] Social History Tobacco Use [...] How often do you attend latter-day or synagogue More than 4 time s [...] to pay for the very basics like [employer] hat hard 07/09/2020 food, housing, medical care, [...] the phone between 7 am-6 pm, Wednesday-Wednesday. [place]: [phone] [place]: [phone] [place]: [phone] [place]: [phone] [place]: [phone] [place]: [phone] [facility]: [phone] Stephen Noriega, [place], or [facility] [place] [facility]: [phone] [place]:[phone] [place]: [phone] Thank you for trusting your health care to [facility]. documented in this encounter Plan of Treatment Scheduled Procedures Name Priority Associated Diagnoses Date/Time COLONOSCOPY Diarrhea documented as of this encounter Visit Diagnoses Not on filedocumented in this encounter Additional Health Concerns Assessment Noted Time PHQ-9 Depression Total Score: 9 07/08/2020 3:59 PM PIN TICKET MACHINE OPERATOR documented as of this encounter Care Teams Farm Demonstrator Relationship Specialty Start Date End Date Alberto Locke M.D. PCP - General Family Medicine 04/27/19 [place] [phone] documented as of this encounter
--- OUTSIDE RECORDS SUMMARY | 2022-07-03 10:34 | XMS_ITS | Encounter Summary ---
:1985 Author Organization [facility] Address [address] [place] [address] Care Team Providers Name Role Phone Alberto Locke M.D. Primary Care Provider Reason for Visit Reason Onset Date Comments Outpatient COVID-19 Testing 03/05/2020 Encounter Details Date Type Department Care Team Description 03/05/2020 External Outreach Department of Employer Based, [facility] For Family Medicine, Covid Serology Screening For Other [facility], in Testing Viral Di [place], [place] (COVID-19) (Primary [address] Dx) [place] [address] Social History Tobacco Use Types [...] How often do you attend rastafarian or judaism More than 4 time s [...] to pay for the very basics like [employer] hat hard 07/09/2020 food, housing, medical care, [...] Scrn, Blood Spot (03/05/2020 9:10 AM CDT) [facility] Method Time Signature SARS-CoV-2 Reactive (A) Negative 03/06/2020 [facility] IgG Emp Scrn, 3:24 PM CDT Ab [...] Testing was performed using the [employer] N Cpyu-BFCU-EoW-2 DONALD (IgG). ??This test has received Emergency Use Authorization (EUA) by the U.S. Food and Drug Administration and is used per clerk general office's instructions, but it is modified from the clerk general office's instructions wit h a bridging study to include dried blood spot specimens. ? ? Performance characteristics were verifie d by [facility] in a manner consistent with CLIA require ments. Specimen Anatomical Collection Method Collection Time Receive d Time (Source) Location / / Volume Laterality Blood (Blood, 03/05/2020 9:10 AM 03/05/20 20 8:50 Venous) CDT PM CDT Covid Serology Testing Employer Based LAB MICROBIOLOGY - BLOOD ORDERABLES Performing Organization Address City/State/ZIP Code Phon e Number [facility] [address] [place], [place] [address] [place] [address] [place] [address] Laboratory Medicine and Pathology [address] [place] documented in this encounter Visit Diagnoses Diagnosis Encounter For Screening For Other Viral Diseases (COVID-19) - Primary documented in this encounter Additional Health Concerns Assessment Noted Time PHQ-9 Depression Total Score: 11 03/05/2020 4:06 PM CD T documented as of this encounter Care Teams Insurance Producer Relationship Specialty Start Date End Date Alberto Locke M.D. PCP - General Family Medicine 04/27/19 [address] [place] [phone] documented as of this encounter
--- OUTSIDE RECORDS SUMMARY | 2022-07-03 10:34 | XMS_ITS | Encounter Summary ---
:1985 Author Organization [facility] Address [address] [place] [address] Care Team Providers Name Role Phone Alberto Locke M.D. Primary Care Provider Encounter Details Date Type Department Care Team Description 05/12/2021 Clinical Communication Department of [facility] Alberto Fregoso M.D. [facility], [address], [facility] [phone] [place] [address] [place], [place] (Work) [phone] Social History Tobacco Use [...] How often do you attend rastafarian or orthodoxy More than 4 time s [...] to pay for the very basics like [employer] hat hard 07/09/2020 food, housing, medical care, [...] COVID19 Pending 07/15/2021 07/15/2021 07/15/2021 8:38 PM BOX LINING MACHINE FEEDER Assessment Noted Time PHQ-9 Depression Total Score: 9 07/08/2020 3:59 PM BOX LINING MACHINE FEEDER documented as of this encounter Care Teams Wood Caulker Relationship Specialty Start Date End Date Alberto Locke M.D. PCP - General Family Medicine 04/27/19 [address] [place] [phone] documented as of this encounter
--- OUTSIDE RECORDS SUMMARY | 2022-07-03 10:34 | XMS_ITS | Encounter Summary ---
:1985 Author Organization [facility] Address [address] [place] [address] Care Team Providers Name Role Phone Alberto Locke M.D. Primary Care Provider Reason for Visit Reason Comments Urinary Tract Infection pt reports painful urination , urgency, and pressure Encounter Details Date Type Department Care Team Description 04/12/2021 Emergency [place] [facility] Berny Garcia Infabi garcia Urinary Tract Department [place] (Primary Dx) 701 [facility] 701 [place] [phone] (Wo rk) Social History Tobacco Use Types [...] How often do you attend mosque or holiness More than 4 time s [...] + Susc, Urine (04/12/2021 8:49 PM CDT) [facility] gist Method Time Signature Urine Culture [...] Organization Address City/State/ZIP Code Phon e Number [facility]- [address] [place] [address] [phone] [facility] [place] [address] [address] (ABNORMAL) Microscopic Automated (04/12/2021 8:49 PM [...] 04/12/2021 8:49 PM 8:58 CDT PM CDT Berny Garcia M.D. LAB URINE ORDERABLES Performing Organization Address City/State/ZIP Code Phon e Number [facility]- [address] [place], [place] [address] [place] [address] System in [place] [address] [place] (ABNORMAL) Urinalysis with Microscopic if Indicated (04/12/2021 [...] 8.0 04/12/2021 9:03 PM CDT [facility] Specific [place] 1.022 1.001 - 1.035 04/12/2021 9:03 PM CDT [facility] Urobilinogen 0.2 0.2 - 1.0 mg/dL 04/12/2021 9:03 PM CD T [facility] Specimen Anatomical Collection Method Collection Time Receive d Time (Source) Location / / Volume Laterality Urine (Urine, 04/12/2021 8:49 PM 04/12/20 8:58 Clean Catch) CDT PM CDT Berny Garcia M.D. LAB URINE ORDERABLES Performing Organization Address City/State/ZIP Code Phon e Number [facility]- [address] [place], [place] [address] [facility] [place] [address] System in [place] [address] documented in this encounter Visit Diagnoses Diagnosis Infection Urinary Tract - Primary documented in this encounter Additional Health Concerns Assessment Noted Time PHQ-9 Depression Total Score: 9 07/08/2020 3:59 PM SECURITIES ATTORNEY documented as of this encounter Care Teams Dairy Products Maker Relationship Specialty Start Date End Date Alberto Locke M.D. PCP - General Family Medicine 04/27/19 [address] [place] [phone] documented as of this encounter
--- OUTSIDE RECORDS SUMMARY | 2022-07-03 10:34 | XMS_ITS | Encounter Summary ---
:1985 Author Organization [facility] Address [address] [place] [address] Care Team Providers Name Role Phone Alberto Locke M.D. Primary Care Provider Encounter Details Date Type Department Care Team Description 03/12/2020 Orders Only RST PCP HLTH MNT Alberto Locke M. D. [address] [place], [place] [phone] (Wo rk) Social History [...] How often do you attend restorationism or scientologist More than 4 time s [...] documented as of this encounter Care Teams Rail Walker Relationship Specialty Start Date End Date Alberto Locke M.D. PCP - General Family Medicine 04/27/19 [address] [place] [phone] documented as of this encounter
--- OUTSIDE RECORDS SUMMARY | 2022-07-03 10:34 | XMS_ITS | Encounter Summary ---
:1985 Author Organization [facility] Address [address] [place] [address] Care Team Providers Name Role Phone Alberto Locke M.D. Primary Care Provider Encounter Details Date Type Department Care Team Description 03/12/2020 Hospital Encounter Department of [facility] laura Brown Laboratory Medicine Leonora Flaherty Other in [place] M.D. Viral Diseases [place] [address] (COVID-19) [address] [place] [address] [place] [phone] Social History Tobacco Use [...] How often do you attend lutheran or mormonism More than 4 time s [...] Total Antibody, Serum (03/12/2020 5:36 PM CDT) [facility] Method Time Signature SARS-CoV-2 Negative Negative 03/13/2020 [...] was performed using the Javy El ecsys [id number] Reagent assay from [employer], which has received Emergency Use Authori zation(EUA) by the U.S. Food and Drug Administration . Fact sheets for this Emergency Use Autho rization (EUA) assay can be found at the following link s: For Healthcare Providers: https://www.fda.gov/media/125208/downloa d For Patients: https://www.fda.gov/media/907987/downloa d Specimen Anatomical Collection Method Collection Time Receive d Time (Source) Location / / Volume Laterality Blood (Blood, 03/12/2020 5:36 PM 03/13/20 20 3:23 Venous) CDT PM CDT Covid Serology Testing Employer Based LAB MICROBIOLOGY - BLOOD ORDERABLES Performing Organization Address City/State/ZIP Code Phon e Number [facility]- [address] [place] [address] [phone] [facility] [place] [address] System [address] documented in this encounter Visit Diagnoses Diagnosis Encounter For Screening For Other Viral Diseases (COVID-19) documented in this encounter Additional Health Concerns Assessment Noted Time PHQ-9 Depression Total Score: 11 03/05/2020 4:06 PM CD T documented as of this encounter Care Teams Dump Worker Relationship Specialty Start Date End Date Alberto Locke M.D. PCP - General Family Medicine 04/27/19 [place] [phone] documented as of this encounter
--- OUTSIDE RECORDS SUMMARY | 2022-07-03 10:34 | XMS_ITS | Encounter Summary ---
:1985 Author Organization [facility] Address [address] [place] [address] Care Team Providers Name Role Phone Alberto Locke M.D. Primary Care Provider Reason for Referral Outpatient (Routine) - Closed Specialty Diagnoses / Procedures Referred By Contact Refer red To Contact Diagnoses Insertion Intrauterine Device Leonora Reaves APRN, [facility] Region Procedures IUD - Insertion or Reinsertion w/removal C.N.P. [address] [place] [phone] Referral ID Status Reason Start Date Expiration Date Visits Requ ested Visits Authorized [id number] Closed 08/07/2020 08/07/2021 1 1 TED CIRCUIT LAYOUT TAPER Reason for Visit Reason Comments Contraception Outpatient (Routine) - Closed Specialty Diagnoses / Procedures Referred By Contact Refer red To Contact Obstetrics and Diagnoses PAR Leonora Reaves APRN, [facility] Gynecology C.N.P. [address] [place] [address] Referral ID Status Reason Start Date Expiration Date Visits Requ ested Visits Authorized [id number] Closed 07/24/2020 07/24/2021 1 1 Encounter Details Date Type Department Care Team Description 08/07/2020 Office Visit Department of Leonora Reaves, Insertion In trauterine Obstetrics and JOSEFA C.N.P. Device (Primary Dx) Gynecology in [place] [address] [facility] [place] [address] [facility] [address] [place]IA[place] GRANT [phone] [address] (Work) [phone] Social History Tobacco Use Types Packs/Day Years [...] How often do you attend denominational or samaritan More than 4 time s [...] Comments Blood Pressure 138/82 08/07/2020 10:53 AM PRINTED CIRCUIT LAYOUT TAPER Pulse - - Temperature - - Respiratory Rate - - Oxygen Saturation - - Inhaled Oxygen Concentration - - Weight 150 kg (330 lb 11 oz) 08/07/2020 10:53 AM PRINTED CIRCUIT LAYOUT TAPER Height - - Body Mass Index 60.85 [...] appropriate location of the IUD is verified. GENERAL ACCOUNTANT TED CIRCUIT LAYOUT TAPER documented in this encounter Plan of Treatment Scheduled Procedures Name Priority Associated Diagnoses Date/Time COLONOSCOPY Diarrhea documented as of this encounter Procedures Procedure Name Priority Date/Time Associated Diagnosis Comme nts [place] INSERT OF Routine 08/07/2020 11:00 Insertion Results for this INTRAUTERINE DEVICE AM PRINTED CIRCUIT LAYOUT TAPER Intrauterine Device p rocedure are in the results section. documented in this encounter Results [place] INSERT OF INTRAUTERINE DEVICE (08/07/2020 11:00 AM PRINTED CIRCUIT LAYOUT TAPER) Narrative MMODAL - 08/07/2020 11:00 AM PRINTED CIRCUIT LAYOUT TAPER Leonora Reaves WHNP-BC RBrittaneyN. ? 08/07/2020 11:34 [...] is the second attempt at IUD in [facility] in approximately 2 weeks time. Today, as [...] mcg/24 hours (6 Given 08/07/2020 11:30 AM PRINTED CIRCUIT LAYOUT TAPER 1 each yrs) 52 mg IUD 1 each (MIRENA) 1 each, intrauterine, One-Time Injection, Starting on Wed08/07/20 at 1130, For 1 dose documented in this encounter Additional Health Concerns Assessment Noted Time PHQ-9 Depression Total Score: 9 07/08/2020 3:59 PM PRINTED CIRCUIT LAYOUT TAPER documented as of this encounter Care Teams New Car Get Ready Mechanic Relationship Specialty Start Date End Date Alberto Locke M.D. PCP - General Family Medicine 04/27/19 [place] [address] documented as of this encounter
--- OUTSIDE RECORDS SUMMARY | 2022-07-03 10:34 | XMS_ITS | Encounter Summary ---
:1985 Author Organization [facility] Address [address] [place] [address] Care Team Providers Name Role Phone Alberto Locke M.D. Primary Care Provider Reason for Visit Reason Comments Sore Throat Shortness of Breath Encounter Details Date Type Department Care Team Description 05/19/2021 Emergency [place] [facility] Berny Garcia, Tonsi llitis Acute Department M.DBrittaney (Primary Dx) [address] [facility] [address] [place] [phone] (Wo rk) Social History Tobacco Use Types [...] How often do you attend evangelical or catholic More than 4 time s [...] cannot be sent through Care Everywhere. Tonsillitis (German)documented in this encounter Medications at Time of Discharge Medication Sig Dispensed Refills Start Date End Date levonorgestreL (MIRENA) 1 each by 0 20 mcg/24 hours (6 yrs) intrauterine route 52 mg IUD continuously. acetaminophen Take 1-2 tablets by 0 06/24/2017 (for_TYLENOL) 500 mg mouth every 6 (six) tablet hours as needed. omeprazole Take 40 mg by mouth 0 11/04 (for_PriLOSEC) 40 mg every morning before capsule breakfast. Reflux/GERD atenoloL (TENORMIN) 25 Take 1 tablet (25 mg 30 tablet 2 11/04/2021 mg tablet total) by mouth daily. azithromycin (ZITHROMAX) 500 mg on day 1, 6 tablet 0 05/1911/04/2021 250 mg tablet followed by 250 mg once daily for 4 days. naproxen (NAPROSYN) 500 TAKE ONE TABLET BY 60 tablet 0 04/2411/04/2021 mg tablet MOUTH TWICE A DAY NEEDED FOR PAIN documented as of this encounter ED Notes [...] CHEST PORTABLE 1 VIEW Procedure Note Parth Walotn M.D. - 05/19/2021Formatt ing of this note [...] Organization Address City/State/ZIP Code Phon e Number [facility]- [address] [place] [phone] [place] [address] System in [place] [address] [place] [address] (ABNORMAL) Comprehensive Metabolic Panel (05/19/2021 9:45 PM [...] CDT eGFR-Black/Afri >90 >=60 05/19/2021 RDWG can Wallisian mL/min/BSA 10:20 PM CDT Comment: ----ADDITIONAL INFORMATION---- [...] Organization Address City/State/ZIP Code Phon e Number [facility]- [address] [place], [place] [address] [place] [address] System in [place] [address] (ABNORMAL) CBC with Differential, Blood (05/19/2021 9:45 PM CDT) [facility] Method Time Signature Hemoglobin 14.0 11.6 - [...] M.D. LAB BLOOD ADD-ON Performing Organization Address City/State/[facility] Phon e Number [facility]- [address] [place], [place] [address] [facility] [place] [address] System in [place] [address] SARS Coronavirus-2 RNA, V (05/19/2021 [...] pe rformed using the Aptima SARS-CoV-2 assay ([employer] on the Notice Kiosks tem under emergency use authorization (EUA) by the U.S. Food and Drug Administ ration. Fact sheets for this EUA assay can be fo und at the following links: For Healthcare Providers: https://www.fd a.gov/media/390203/download For Patients: https://www.fda.gov/media/ 787666/download Specimen Anatomical Collection Method Collection Time Receive d Time (Source) Location / / Volume Laterality Varies 05/19/2021 9:44 PM CDT 11:00 AM CDT Berny Garcia M.D. LAB MICROBIOLOGY - GENERAL O RDERABLES Performing Organization Address City/State/ZIP [place] Phon e Number [facility]- [address] [place] [address] [phone] [facility] [place] [address] System in [address] Streptococcus Group A, Molecular Detection, PCR, [...] Organization Address City/State/ZIP Code Phon e Number [facility]- [address] [place], [place] [address] [place] [address] System in [place] [address] documented in this encounter Visit Diagnoses Diagnosis Tonsillitis Acute - Primary documented in this encounter Additional Health Concerns Infection Onset Date Last Indicated Resolved Time COVID19 Pending 05/19/2021 05/19/2021 05/19/2021 10:24 PM CDT COVID19 Pending 05/19/2021 05/19/2021 05/20/2021 3:13 PM CDT Assessment Noted Time PHQ-9 Depression Total Score: 9 07/08/2020 3:59 PM OB TECH documented as of this encounter Care Teams Filter Tender Jelly Relationship Specialty Start Date End Date Alberto Locke M.D. PCP - General Family Medicine 04/27/19 [address] [place] [phone] documented as of this encounter
--- OUTSIDE RECORDS SUMMARY | 2022-07-03 10:34 | XMS_ITS | Encounter Summary ---
:1985 Author Organization [facility] Address [address] [place] [address] Care Team Providers Name Role Phone Alberto Locke M.D. Primary Care Provider Reason for Visit Reason Comments Med Refill Encounter Details Date Type Department Care Team Description 05/05/2021 Refill Urgent [place] M, Med [facility]ill [place] [facility] [address] [facility] [address] [place] [address] [place] [address] [phone] (Wo rk) Social History Tobacco Use Types [...] How often do you attend confucianism or temple More than 4 time s [...] Depression Total Score: 9 07/08/2020 3:59 PM SHANK ARCHER documented as of this encounter Care Teams Journal Entry Audit Clerk Relationship Specialty Start Date End Date Alberto Locke M.D. PCP - General Family Medicine 04/27/19 [address] [place] [phone] documented as of this encounter
--- OUTSIDE RECORDS SUMMARY | 2022-07-03 10:34 | XMS_ITS | Encounter Summary ---
:1985 Author Organization [facility] Address [address] [place] [address] Care Team Providers Name Role Phone Alberto Locke M.D. Primary Care Provider Reason for Referral Outpatient (Routine) - Closed Specialty Diagnoses / Procedures Referred By Contact Refer red To Contact Tammie Snyder APRN, C.NJud, M [facility] NEHEMIAH Kent M.S.N. [address] [place] [phone] Referral ID Status Reason Start Date Expiration Date Visits Requ ested Visits Authorized [id number] Closed 07/09/2020 07/09/2021 1 1 Scheduling Instructions At [facility] ([facility]) ONLY. Please schedule as soon as possible within the next 24-48 hours. 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 Reason for Visit Appointment Request (Routine) - Closed Specialty Diagnoses / Procedures Referred By Contact Refer red To Contact Express or Urgent Care Referral ID Status Reason Start Date Expiration Date Visits Requ ested Visits Authorized [id number] Closed 07/09/2020 07/09/2021 1 1 Encounter Details Date Type Department Care Team Description 07/09/2020 Telemedicine [facility] Tammie Can Phar yngitis Acute Care at [facility] JOSEFA C.N.PBrittaney, (Primary Dx) [address] [place] M.S.NBrittaney [place], [place] [address] [place] [phone] [place], [place] [phone] Social History Tobacco Use Types Packs/Day Years [...] How often do you attend zoroastrian or baptism More than 4 time s [...] or coughing. ?? Use an alcohol-based hand coin rolling machine operator if washing your hands with soap and [...] with your health care provider. ? 2013 [facility] ([facility]). All rights reserved. 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 - 07/09/2020 11:20 AM CST CHIEF COMPLAINT Sore throat x 1 week Consult conducted via real-time audio/video technology by Tammie Snyder APRN C.N.PBrittaney in [facility] patient in their home. Visit was conducted [...] exposure however the patient does work in [place] [place] in [place]. She wears appropriate personal protective equipment while [...] strep swab to be completed at the [facility] via nurse only visit. Treat per protocol. If strep screen positive, a prescription for Penicillin V Potassium 500 mg PO, every 12 hours for 10days, tablet, will be sent to [facility] in [place]. Strep pharyngitis considered contagious until treated for [...] with primary care provider. Patient has a [facility] online portal account, can view medication list electronically. Ready to learn, no apparent learning barriers were identified; learning preferences include listening. Explained diagnosis and treatment plan; patient/child/caregiver expressed understanding of the content. 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 documented in this encounter Plan of Treatment Scheduled Procedures Name Priority Associated Diagnoses Date/Time COLONOSCOPY Diarrhea Scheduled Referrals Name Type Priority Associated Diagnoses Order S janet Primary Care nurse Outpatient Referral Routine Ex pected: visit (clinic) - 07/09/2020, [facility] Region; Expires: Swabs; Throat 07/09/2023 documented as of this encounter Visit Diagnoses Diagnosis Pharyngitis Acute - Primary documented in this encounter Additional Health Concerns Assessment Noted Time PHQ-9 Depression Total Score: 9 07/08/2020 3:59 PM INOR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 documented as of this encounter Care Teams Digital Analytics Manager Relationship Specialty Start Date End Date Alberto Locke M.D. PCP - General Family Medicine 04/27/19 [address] [place] [phone] documented as of this encounter
--- OUTSIDE RECORDS SUMMARY | 2022-07-03 10:34 | XMS_ITS | Encounter Summary ---
:1985 Author Organization [facility] Address [address] [place] [address] Care Team Providers Name Role Phone Alberto Locke M.D. Primary Care Provider Encounter Details Date Type Department Care Team Description 07/08/2020 Admin Visit Department of Family Medicine, [facility] [place] in [place], [place] [address] [place] [address] [facility] [phone] Social History Tobacco Use Types Packs/Day Years [...] How often do you attend rastafarian or sikhism More than 4 time s per year [...] COVID19 Pending 07/08/2020 07/08/2020 07/09/2020 5:11 AM TANK CHARGER Assessment Noted Time PHQ-9 Depression Total Score: 9 07/08/2020 3:59 PM TANK CHARGER documented as of this encounter Care Teams Product Scientist Relationship Specialty Start Date End Date Alberto Locke M.D. PCP - General Family Medicine 04/27/19 [address] [place] [address] documented as of this encounter
--- OUTSIDE RECORDS SUMMARY | 2022-07-03 10:34 | XMS_ITS | Encounter Summary ---
:1985 Author Organization [facility] Address [address] [place] [address] Care Team Providers Name Role Phone Alberto Locke M.D. Primary Care Provider Encounter Details Date Type Department Care Team Description 11/22/2020 Orders Only [facility] PCP TH Sa emma Lemos M.D. [address] [place], [place] [phone] (Wo rk) Social History Tobacco Use Types [...] How often do you attend uatsdin or christianity More than 4 time s [...] Depression Total Score: 9 07/08/2020 3:59 PM ELECTRONICS ENGINEERING TECHNOLOGIST documented as of this encounter Care Teams It Desktop Support Technician Relationship Specialty Start Date End Date Alberto Locke M.D. PCP - General Family Medicine 04/27/19 [address] [place] [phone] documented as of this encounter
--- OUTSIDE RECORDS SUMMARY | 2022-07-03 10:34 | XMS_ITS | Encounter Summary ---
:1985 Author Organization [facility] Address [address] [place] [address] Care Team Providers Name Role Phone Alberto Locke M.D. Primary Care Provider Reason for Referral Outpatient (Routine) - Closed Specialty Diagnoses / Procedures Referred By Contact Refer red To Contact Obstetrics and Diagnoses PAR Leonora Reaves, JOSEFA, MIGDALIAS [facility] Gynecology C.N.P. [address] [place] [phone] Referral ID Status Reason Start Date Expiration Date Visits Requ ested Visits Authorized [id number] Closed 07/24/2020 07/24/2021 1 1 Scheduling Instructions IUD insertion LOADER Reason for Visit Reason Comments Annual Exam Appointment Request (Routine) - Closed Specialty Diagnoses / Procedures Referred By Contact Refer red To Contact Obstetrics and Gynecology Referral ID Status Reason Start Date Expiration Date Visits Requ ested Visits Authorized [id number] Closed 07/24/2020 07/24/2021 1 1 Encounter Details Date Type Department Care Team Description 07/24/2020 Office Visit Department of Leonora Reaves Preventive G ynecological Exam (Primary Dx); Obstetrics and JOSEFA, C.N.P. Pap Smear Examination; Gynecology in [facility] [address] Migraine Headache; [facility] [place] Abuse Tobacco Smoking; 6 [facility] [address] Body Mass Index 60.0 To 69.9 Adult (HCC) ; [facility] [place] [phone] Depression Olimpia r Recurrent ([facility]) [phone] (Work) [phone] Social History Tobacco Use Types Packs/Day Years [...] How often do you attend adventism or shinto More than 4 time s [...] Comments Blood Pressure 144/76 07/24/2020 1:03 PM SKIP LOADER Pulse - - Temperature - - Respiratory Rate - - Oxygen Saturation - - Inhaled Oxygen Concentration - - Weight 151 kg (332 lb 14.3 oz) 07/24/2020 1:03 PM SKIP LOADER Height - - Body Mass Index 61.26 [...] 3. Is due for a Pap smear PROJECT MANAGEMENT ADVISOR HISTORY: Last Pap 2016 and was NIL. [...] SECTION; Surgeon: Xin De Leon M.D.; Location: [facility] OR ??? SECTION 04/12/2019 ??? ENDOSCOPIC RETROGRADE CHOLANGIOPANCREATOGRAPHY (ERCP) N/A 11/08/2017 Procedure: ENDOSCOPIC RETROGRADE CHOLANGIOPANCREATOGRAPHY; Surgeon: Rubio Baker M.D.; Location: [facility] OR ??? ESOPHAGOGASTRODUODENOSCOPY N/A 11/11/2017 Procedure: ESOPHAGOGASTRODUODENOSCOPY; Surgeon: Rubio Baker M.D.; Location: [facility] GI LAB ??? LAPAROSCOPIC APPENDECTOMY N/A 09/08/2017 Procedure: LAPAROSCOPIC APPENDECTOMY; Surgeon: Edd Moeller D.O.; Location: [facility] OR ??? LAPAROSCOPIC CHOLECYSTECTOMY WITH CHOLANGIOGRAM N/A 03/03/2018 Procedure: LAPAROSCOPIC CHOLECYSTECTOMY POSSIBLE CHOLANGIOGRAM; Surgeon: Edd Moeller D.O.; Location: [facility] OR ??? OTHER CONVERTED SHX (SEE [...] week Gets together: Once a week Attends shinto service: More than 4 times per year [...] with logging foods in roque such as [employer] or something comparable, making small changes as [...] blood/lymph issues: Yes No urinary/reproductive issues: Yes LOADER documented in this encounter Plan of Treatment [...] Pap Smear Results for this CO-TEST SCREEN SKIP LOADER Examination procedure are in the results section. HPV WITH Routine 07/24/2020 1:43 PM Results f or this GENOTYPING, PCR, SKIP LOADER procedure a re in THINPREP the results section. documented in this encounter Results HPV with Genotyping, PCR, ThinPrep (07/24/2020 1:43 PM SKIP LOADER) [facility] gist Method Time Signature Specimen Thin Prep 07/29/2020 DTL Source Vial, 4:25 PM SKIP LOADER Cervix/Endoc ervix HPV High Risk Negative Negative 07/29/2020 DTL type 16, PCR 4:25 PM SKIP LOADER HPV High Risk Negative Negative 07/29/2020 DTL type 18, PCR 4:25 PM SKIP LOADER HPV other Negative Negative 07/29/2020 DTL High Risk 4:25 PM SKIP LOADER types, PCR Comment: The following Other High Risk HPV types were not detected: 31, 33, 35, 39, 45, 51, 52, 56, 58, 59, 66, and 68 This test was ordered in the context of a [facility] PROJECT MANAGEMENT ADVISOR Cytology case; this result should be int erpreted within the context of the PROJECT MANAGEMENT ADVISOR cytology report. Specimen Anatomical Collection Method Collection Time Receive d Time (Source) Location / / Volume Laterality Varies 07/24/2020 1:43 PM 0 SKIP LOADER 10:27 AM SKIP LOADER Leonora Reaves APRN, C.N.P. LAB MICROBIOLOGY - GENERAL O RDERABLES Performing Organization Address City/State/ZIP Code Phon e Number [facility] - [address] [place], [place] [address] [facility] [place] [address] Laboratories-[facility] 200 [facility] ThinPrep w/HPV Co-Test Screen (07/24/2020 1:43 PM SKIP LOADER) Component Value Ref Test Analysis Performed Pathologis t Range Method Time At [facility] 07/30/2020 ECLR 2:28 PM SKIP LOADER Disclaimer High risk HPV testing, Real-Time Polymerase Chain Reac tion 07/30/2020 ECLR (PCR) was performed on the liquid-based cytology specimen 2:28 PM at SKIP LOADER [place], [place]. Report LISSETT Foley(ASCP) 07/30/2020 ECL R electronically I verify that I have examined all relevant slides/ma terials 2:28 PM signed by for the specimen(s) and rendered or confirmed the diagnosis. SKIP LOADER Gross Description Received specimen 07/30/2020 ECL R in a ThinPrep 2:28 PM vial. SKIP LOADER Pap Test Source Cervical/Endocervi 07/30/2020 ECLR huma 2:28 PM SKIP LOADER Interpretation Cervical/Endocervical ??(ThinPrep): 07/30/2020 ECLR Satisfactory for Evaluation 2:28 PM Endocervical/transformation zone components absent SKIP LOADER Negative for Intraepithelial Lesion or Malignancy ??High [...] Laterality Varies 07/24/2020 1:43 PM 0 (Cervix/Endocerv SKIP LOADER 10:27 AM CS T ix) Narrative This result has an attachment that is no t available. Leonora Reaves APRN, C.N.P. LAB PAP PATHDX ORDERABLES Performing Organization Address City/State/ZIP Code Phon e Number [facility]- [address] [place] [phone] [facility] [place] [address] System in [address] documented in this encounter Visit Diagnoses Diagnosis Preventive Gynecological Exam - Primary Pap Smear Examination Migraine Headache Abuse Tobacco Smoking Body Mass Index 60.0 To 69.9 Adult (HCC) Depression Major Recurrent (HCC) documented in this encounter Additional Health Concerns Assessment Noted Time PHQ-9 Depression Total Score: 9 07/08/2020 3:59 PM SKIP LOADER documented as of this encounter Care Teams Cotton Wringer Relationship Specialty Start Date End Date Alberto Locke M.D. PCP - General Family Medicine 04/27/19 [address] [place] [address] documented as of this encounter
--- OUTSIDE RECORDS SUMMARY | 2022-07-03 10:34 | XMS_ITS | Encounter Summary ---
:1985 Author Organization [facility] Address [address] [place] [address] Care Team Providers Name Role Phone Alberto Locke M.D. Primary Care Provider Encounter Details Date Type Department Care Team Description 07/08/2020 Clinical Communication Department of [facility] Alberto Fregoso M.D. [address], [facility] [address] 3 [facility] [phone] [place], [place] (Work) [address] Social History Tobacco Use [...] How often do you attend baptist or faith More than 4 time s [...] not improve. Thank you for the information BASKET MAKER HELPER MACHINE Telephone Encounter - Venu Collins P.A.-C. - 07/08/2020 11:29 AM SLAT BASKET MAKER HELPER MACHINE Currently only COVID swabs can be performed at the testing site. This may change in the future. BASKET MAKER HELPER MACHINE Telephone Encounter - Karey Carballo L.P.N. - 07/08/2020 11:20 AM SLAT BASKET MAKER HELPER MACHINE I believe just covid test are done at the [facility] site? Will ask Venu BASKET MAKER HELPER MACHINE Telephone Encounter - Cristine Ramesh - 07/08/2020 [...] Thanks Name of Medication (if relevant): N/A BASKET MAKER HELPER MACHINE documented in this encounter Plan of Treatment Scheduled Procedures Name Priority Associated Diagnoses Date/Time COLONOSCOPY Diarrhea documented as of this encounter Visit Diagnoses Not on filedocumented in this encounter Additional Health Concerns Infection Onset Date Last Indicated Resolved Time COVID19 Pending 07/08/2020 07/08/2020 07/09/2020 5:11 AM SLAT BASKET MAKER HELPER MACHINE Assessment Noted Time PHQ-9 Depression Total Score: 9 07/08/2020 3:59 PM SLAT BASKET MAKER HELPER MACHINE documented as of this encounter Care Teams Child Specialist Relationship Specialty Start Date End Date Alberto Locke M.D. PCP - General Family Medicine 04/27/19 [address] [place] [address] documented as of this encounter
--- OUTSIDE RECORDS SUMMARY | 2022-07-03 10:34 | XMS_ITS | Encounter Summary ---
:1985 Author Organization [facility] Address [address] [place] [address] Care Team Providers Name Role Phone Alberto Locke M.D. Primary Care Provider Reason for Referral Outpatient (Routine) - Closed Specialty Diagnoses / Procedures Referred By Contact Refer red To Contact Diagnoses Primary Osteoarthritis Knee Left Pain Knee Left Berny Robert [facility] [place] [facility] Procedures bxm-nphc-epcxvark-elbow arthrocentesis: L knee joint M.D. [address] [place] [address] Referral ID Status Reason Start Date Expiration Date Visits Requ ested Visits Authorized [id number] Closed 04/23/2021 04/23/2022 1 1 Physical Therapy (Routine) - Closed Specialty Diagnoses / Procedures Referred By Contact Refer red To Contact Diagnoses Pain Knee Left Primary Osteoarthritis Knee Left Primary Osteoarthritis Knee Right Body Mass Index 60.0 To 69.9 Adult ([facility]) Berny Robert [facility] [place] [facility] Procedures PT Evaluate and treat M.D. [address] [place] [address] Referral ID Status Reason Start Date Expiration Date Visits Requ ested Visits Authorized [id number] Closed 04/23/2021 04/23/2022 1 1 Reason for Visit Outpatient (Routine) - Closed Specialty Diagnoses / Procedures Referred By Contact Refer red To Contact Orthopedic Surgery Diagnoses Pain Knee Left Suzanne Amlodovar [facility] P.A.-C. [address] NEHEMIAH [place] [address] Referral ID Status Reason Start Date Expiration Date Visits Requ ested Visits Authorized [id number] Closed 04/14/2021 04/14/2022 1 1 Encounter Details Date Type Department Care Team Description 04/23/2021 Comprehensive Visit Department of Jakob, Primary Osteoarthritis Knee Left (Primary Dx); Orthopedic Surgery Malia Son Pain Knee Left; in [place] [facility] Primary Osteoarthritis Knee Right; [place], [place] Body Mass Index 60.0 To 69.9 Adult ([facility]) [address] [facility] [address] [place] [phone] [address] (Work) [phone] Social History Tobacco Use Types Packs/Day Years [...] M.D. - 04/23/2021 10:15 AM CDTAssociated Order(s): mwc-eavh-cddwhldx-elbow arthrocentesis: L knee joint Post-Procedure Diagnose(s): Primary [...] SECTION; Surgeon: Xin De Leon M.D.; Location: [facility] OR ??? SECTION 04/12/2019 ??? ENDOSCOPIC RETROGRADE CHOLANGIOPANCREATOGRAPHY (ERCP) N/A 11/08/2017 Procedure: ENDOSCOPIC RETROGRADE CHOLANGIOPANCREATOGRAPHY; Surgeon: Rubio Baker M.D.; Location: [facility] OR ??? ESOPHAGOGASTRODUODENOSCOPY N/A 11/11/2017 Procedure: ESOPHAGOGASTRODUODENOSCOPY; Surgeon: Rubio Baker M.D.; Location: [facility] GI LAB ??? LAPAROSCOPIC APPENDECTOMY N/A 09/08/2017 Procedure: LAPAROSCOPIC APPENDECTOMY; Surgeon: Edd Moeller D.O.; Location: [facility] OR ??? LAPAROSCOPIC CHOLECYSTECTOMY WITH CHOLANGIOGRAM N/A 03/03/2018 Procedure: LAPAROSCOPIC CHOLECYSTECTOMY POSSIBLE CHOLANGIOGRAM; Surgeon: Edd Moeller D.O.; [facility] [...] Body Mass Index 60.0 To 69.9 Adult ([facility]) Discussed diagnosis and natural history of osteoarthritis. Both surgical and conservative treatment options were discussed today, and recommendation was made for conservative treatment consisting of activity modifications, weight loss, pain management with NSAIDs and/or Tylenol, and intermittent intra-articular corticosteroid or viscosupplementation injections. After discussion, patient was in agreement with plan.She is going to take fjvy-hmg-fkubkfo pain medications on an as-needed basis for [...] Name Priority Date/Time Associated Diagnosis Comme nts OH ARTHCS ASP/INJ Routine 04/23/2021 10:41 Primary Osteoarthri tis Results for this MJR JT WO US AM CDT Knee Left procedure are in Pain Knee Left the results section. documented in this encounter Results OH ARTHCS ASP/INJ MJR JT WO US (04/23/2021 [...] Depression Total Score: 9 07/08/2020 3:59 PM TITLE LAWYER documented as of this encounter Care Teams Informal Waiter/Waitress Relationship Specialty Start Date End Date Alberto Locke M.D. PCP - General Family Medicine 04/27/19 [address] [place] [address] documented as of this encounter
--- OUTSIDE RECORDS SUMMARY | 2022-07-03 10:34 | XMS_ITS | Encounter Summary ---
:1985 Author Organization [facility] Address [address] [place] [address] Care Team Providers Name Role Phone Alberto Locke M.D. Primary Care Provider Encounter Details Date Type Department Care Team Description 11/29/2020 Immunization Department of [facility] Ian Hays, Medicine, [place] M.DBrittaney Professional Building, in [address] [place], [place] [address] [address] [place] [address] [phone] Social History Tobacco Use Types Packs/Day Years [...] How often do you attend buddhism or yazidi More than 4 time s [...] Depression Total Score: 9 07/08/2020 3:59 PM INTERPRETIVE PROGRAM COORDINATOR documented as of this encounter Care Teams Peanut Salter Relationship Specialty Start Date End Date Alberto Locke M.D. PCP - General Family Medicine 04/27/19 [address] [place] [address] documented as of this encounter
--- OUTSIDE RECORDS SUMMARY | 2022-07-03 10:35 | XMS_ITS | Encounter Summary ---
:1985 Author Organization [facility] Address [address] [place] [address] Care Team Providers Name Role Phone Alberto Locke M.D. Primary Care Provider Reason for Visit Reason Comments URI Appointment Request (Routine) - Closed Specialty Diagnoses / Procedures Referred By Contact Refer red To Contact Family Medicine Referral ID Status Reason Start Date Expiration Date Visits Requ ested Visits Authorized [id number] Closed 09/11/2019 09/10/2020 1 1 Encounter Details Date Type Department Care Team Description 09/11/2019 Office Visit Department of Family Gerda Pike Co [facility] (Primary Dx); Medicine, [place] INDUSTRIAL ELECTRICIAN, C.N.P., Phar yngitis Acute; Clinic, in [place] D.N.PBrittaney Body Mass Index 50.0 To 59.9 Adult (HCC) ; [place] [address] Abuse Tobacco Smoking [address] [place] [phone] Social History Tobacco Use Types Packs/Day Years [...] How often do you attend nondenominational or cheondoism More than 4 time s [...] Comments Blood Pressure 130/73 09/11/2019 9:34 AM MARINE FIRE FIGHTER Pulse 92 09/11/2019 9:34 AM MARINE FIRE FIGHTER Temperature 35.7 ??C (96.3 ??F) 09/11/2019 9:34 AM MARINE FIRE FIGHTER Respiratory Rate - - Oxygen Saturation 95% 09/11/2019 9:34 AM MARINE FIRE FIGHTER Inhaled Oxygen Concentration - - Weight 136 kg (299 lb 13.2 oz) 09/11/2019 9:34 AM MARINE FIRE FIGHTER Height - - Body Mass Index 54.82 [...] No h/o asthma. No fever reducers today. NE FIRE FIGHTER Gerda Pike APRN, C.NJud, D.N.P. - 09/11/2019 [...] the content. Gerda Pike APRN, C.N.P., D.N.P. NE FIRE FIGHTER documented in this encounter Plan of Treatment Scheduled Procedures Name Priority Associated Diagnoses Date/Time COLONOSCOPY Diarrhea documented as of this encounter Procedures Procedure Name Priority Date/Time Associated Diagnosis Comme nts INFLUENZA A, B, Routine 09/11/2019 10:29 AM Resul ts for this RSV, PCR, POCT MARINE FIRE FIGHTER procedure are in the results section. STREP GROUP A, PCR, Routine 09/11/2019 10:17 AM R esults for this POCT MARINE FIRE FIGHTER procedure are i n the results section. STREP GROUP A, PCR, Routine 09/11/2019 9:52 AM Pharyngitis Acu te Results for this POCT MARINE FIRE FIGHTER procedure are i n the results section. INFLUENZA A, B, Routine 09/11/2019 9:52 AM Cough Result s for this RSV, PCR, POCT MARINE FIRE FIGHTER procedure are in the results section. documented in this encounter Results Influenza A/B and RSV, PCR, Point of Care (09/11/2019 10:29 AM MARINE FIRE FIGHTER) P athologist Signature Influenza A, Negative Negative 09/11/2019 CNFL POCT 10:29 AM MARINE FIRE FIGHTER Influenza B, Negative Negative 09/11/2019 CNFL POCT 10:29 AM MARINE FIRE FIGHTER Resp Syncytial Negative Negative 09/11/2019 CNFL Virus, POCT 10:29 AM MARINE FIRE FIGHTER Specimen Anatomical Collection Method Collection Time Receive d Time (Source) Location / / Volume Laterality Varies 09/11/2019 10:29 09/11/2019 AM MARINE FIRE FIGHTER 10:30 AM MARINE FIRE FIGHTER Generic Rals LAB POCT ORDERABLES - DEVICE Performing Organization Address City/[facility] Phon e Number [address] [place] [address] [place] [address] System [address] Strep Group A, PCR, Point of Care (09/11/2019 10:17 AM MARINE FIRE FIGHTER) P athologist Signature Strep Group A, Negative Negative 09/11/2019 CNFL PCR, POCT 10:17 AM MARINE FIRE FIGHTER Specimen Anatomical Collection Method Collection Time Receive d Time (Source) Location / / Volume Laterality Varies 09/11/2019 10:17 09/11/2019 AM MARINE FIRE FIGHTER 10:21 AM MARINE FIRE FIGHTER Generic Rals LAB POCT ORDERABLES - DEVICE Performing Organization Address [facility] Phon e Number [address] [place] [address] [place] [address] System [address] Strep Group A, PCR, Point of Care (09/11/2019 9:52 AM MARINE FIRE FIGHTER) Analysis Performed At Patho logist Time Signature Strep Group A, Collected DEFAULT 09/11/2019 CNFL PCR, POCT 9:58 AM MARINE FIRE FIGHTER Specimen Anatomical Collection Method Collection Time Receive d Time (Source) Location / / Volume Laterality Varies (Throat) 09/11/2019 9:52 AM 2019 9:58 MARINE FIRE FIGHTER AM MARINE FIRE FIGHTER Kendal Camacho APRNNLebron., D.N.P. LAB POCT ORDERABL ES - DEVICE Performing Organization Address [facility] Code Phon e Number [address] [address] [place] [address] System [address] Influenza A/B and RSV, PCR, Point of Care (09/11/2019 9:52 AM MARINE FIRE FIGHTER) Analysis Performed At Patho logist Time Signature Influenza A, Collected DEFAULT 09/11/2019 CNFL B, RSV, PCR, 9:58 AM MARINE FIRE FIGHTER POCT Specimen Anatomical Collection Method Collection Time Receive d Time (Source) Location / / Volume Laterality Varies 09/11/2019 9:52 AM 0 9:58 (Nasopharynx) MARINE FIRE FIGHTER AM MARINE FIRE FIGHTER Kendal Camacho APRNN.P., D.N.P. LAB POCT ORDERABL ES - DEVICE Performing Organization Address [facility] Phon e Number [address] [address] [place] [address] System [address] documented in this encounter Visit Diagnoses Diagnosis Cough Unspecified Type - Primary Pharyngitis Acute Body Mass Index 50.0 To 59.9 Adult (HCC) Abuse Tobacco Smoking documented in this encounter Additional Health Concerns Assessment Noted Time PHQ-9 Depression Total Score: 3 05/30/2019 10:59 AM CD T documented as of this encounter Care Teams Triage Clinician Relationship Specialty Start Date End Date Alberto Locke M.D. PCP - General Family Medicine 04/27/[address] [place] [address] NEHEMIAH Rivera [phone] documented as of this encounter
--- OUTSIDE RECORDS SUMMARY | 2022-07-03 10:35 | XMS_ITS | Encounter Summary ---
:1985 Author Organization [facility] Address [address] [place] [address] Care Team Providers Name Role Phone Alberto Locke M.D. Primary Care Provider Reason for Referral Outpatient (Routine) - Closed Specialty Diagnoses / Procedures Referred By Contact Refer red To Contact Family Medicine Alberto Locke M.D. [address] [phone] Referral ID Status Reason Start Date Expiration Date Visits Requ ested Visits Authorized [id number] Closed 04/27/2019 04/26/2020 1 1 Scheduling Instructions Depression, anemia Reason for Visit Reason Comments Establish Care Anemia post Encounter Details Date Type Department Care Team Description 04/27/2019 Comprehensive Visit Department of Alberto Locke Anemia (HCC) (Primary Dx); Family MedicineSera Other Hypotension; [facility], in [address] [place] [address] lvd Abuse Tobacco Smoking; [place], [place] Body Mass Index 50.0 To 59.9 Adult ([facility]); [address] [place] [phone] Depression Major Recurrent ([facility]) [place], [place] [phone] [address] (Work) [phone] Social History Tobacco Use Types Packs/Day Years [...] How often do you attend lutheran or jehovah's witness More than 4 time [...] She will discus permanent sterilization at upcoming STAFF EDUCATOR follow up. Patient Active Problem List Diagnosis ??? Body Mass Index 50.0 To 59.9 Adult ([facility]) ??? Abuse Tobacco Smoking ??? Migraine Headache ??? Apnea Sleep Obstructive ??? Gastroesophageal Reflux Disease NOS ??? Attention Deficit With Hyperactivity Disorder ??? Depression Major Recurrent ([facility]) ??? Section Delivery ([facility]) Current Outpatient Medications Medication Sig ??? acetaminophen [...] week Gets together: Once a week Attends jehovah's witness service: 1 to 4 times per year [...] SECTION; Surgeon: Xin De Leon M.D.; Location: [facility] OR ??? ENDOSCOPIC RETROGRADE CHOLANGIOPANCREATOGRAPHY (ERCP) N/A 11/08/2017 Procedure: ENDOSCOPIC RETROGRADE CHOLANGIOPANCREATOGRAPHY; Surgeon: Rubio Baker M.D.; Location: [facility] OR ??? ESOPHAGOGASTRODUODENOSCOPY N/A 11/11/2017 Procedure: ESOPHAGOGASTRODUODENOSCOPY; Surgeon: Rubio Baker M.D.; Location: [facility] GI LAB ??? LAPAROSCOPIC APPENDECTOMY N/A 09/08/2017 Procedure: LAPAROSCOPIC APPENDECTOMY; Surgeon: Edd Moeller D.O.; Location: [facility] OR ??? LAPAROSCOPIC CHOLECYSTECTOMY WITH CHOLANGIOGRAM N/A 03/03/2018 Procedure: LAPAROSCOPIC CHOLECYSTECTOMY POSSIBLE CHOLANGIOGRAM; Surgeon: Edd Moeller D.O.; Location: [facility] OR ??? OTHER CONVERTED SHX [...] She will discuss weight loss meds with [employer] STYLE FOOD #5 Depression Major Recurrent (HCC) I will [...] Name Type Priority Associated Diagnoses Order [facility] Outpatient Referral Routine Expec pipe: office visit [...] [facility] [address] [place] [address] [place], [place] [address] [place] [address] System in [place] [address] documented in this encounter Visit Diagnoses Diagnosis Anemia (HCC) - Prim shonna Other Hypotension Abuse Tobacco Smoking Body Mass Index 50.0 To 59.9 Adult (HCC) Depression Major Recurrent (HCC) documented in this encounter Additional Health Concerns Assessment Noted Time PHQ-9 Depression Total Score: 7 04/07/2017 9:39 AM CDT documented as of this encounter Care Teams Wood Turner Relationship Specialty Start Date End Date Alberto Locke M.D. PCP - General Family Medicine 04/27/19 [address] [place] [phone] documented as of this encounter
--- OUTSIDE RECORDS SUMMARY | 2022-07-03 10:35 | XMS_ITS | Encounter Summary ---
:1985 Author Organization [facility] Address [address] [place] [address] Care Team Providers Name Role Phone Blaire [...] How often do you attend bahai or spiritism More than 4 time s [...] seen for a Consultation on 04/17/19 at [facility] class for weight and feeding check. [...] documented as of this encounter Care Teams Dredge Worker Relationship Specialty Start Date End Date Blaire Bundy P.A.-C. PCP - General 02/04/17 04/26/19 documented as of this encounter
--- OUTSIDE RECORDS SUMMARY | 2022-07-03 10:35 | XMS_ITS | Encounter Summary ---
:1985 Author Organization [facility] Address [address] [place] [address] Care Team Providers Name Role Phone Blaire Bundy P.A.-C. Primary Care Provider [phone] Reason for Visit Reason Comments Post-op Visit Outpatient (Routine) - Closed Specialty Diagnoses / Procedures Referred By Contact Refer red To Contact Obstetrics and Diagnoses PAR Melany Montoya [facility] Gynecology CENTER MAKER HAND, CHRISTOPH, M.S.N., B.S.N., R.N. [address] [place] [address] Referral ID Status Reason Start Date Expiration Date Visits Requ ested Visits Authorized [id number] Closed 04/19/2019 04/18/2020 1 1 Encounter Details Date Type Department Care Team Description 04/20/2019 Office Visit Department of Melany Montoya, S ection Obstetrics and JOSEFA, CHRISTOPH, Delivery ([facility] ) Gynecology in [facility] M.S.N., B.S.N., (Primar y Dx) [place], [place] R.N. 701 [facility] [address] [place] [address] Social History Tobacco Use [...] How often do you attend nondenominational or latter day More than 4 time [...] documented as of this encounter Care Teams Museum Security Chief Relationship Specialty Start Date End Date Blaire Bundy P.A.-C. PCP - General 02/04/17 04/26/19 documented as of this encounter
--- OUTSIDE RECORDS SUMMARY | 2022-07-03 10:35 | XMS_ITS | Encounter Summary ---
:1985 Author Organization [facility] Address [address] [place] [address] Care Team Providers Name Role Phone Alberto Locke M.D. Primary Care Provider Encounter Details Date Type Department Care Team Description 10/17/2019 Orders Only Department of Pediatrics in [facility] cynthia [place], [place] P.A.-C. 701 [facility] [address] [place] [address] [place] [phone] (Wo rk) Social History Tobacco Use Types [...] How often do you attend advent or gnosticist More than 4 time s [...] documented as of this encounter Care Teams Transportation Supervisor Relationship Specialty Start Date End Date Alberto Locke M.D. PCP - General Family Medicine 04/27/19 [address] [place] [address] documented as of this encounter
--- OUTSIDE RECORDS SUMMARY | 2022-07-03 10:35 | XMS_ITS | Encounter Summary ---
:1985 Author Organization [facility] Address [address] [place] [address] Care Team Providers Name Role Phone Alberto Locke M.D. Primary Care Provider Reason for Visit Reason Comments COVID Nurse Line Encounter Details Date Type Department Care Team Description 12/06/2019 Clinical Communication Division of Emerita Pereira Nurse Line [facility] L, R.N. [facility] [address] [place] [address] [place] [phone] 200 [facility] (Work) [place] [address] Social History Tobacco Use Types Packs/Day Years [...] How often do you attend denominational or taoist More than 4 time s [...] and water aren't available, use a hand check writing machine operator that contains at least 60% alcohol. Avoid [...] essential items or medical care). Educational Resource: https://www.cdc.gov/coronavirus/2019-ncov/ivtnplw-yxiipwa-fvzz/index.html Education: patient/caregiver Patient/caregiver able to teach back Patient agreeable to plan of care: Yes The following references were used: [facility] novel coronavirus (COVID- 19) resources documented in this encounter Plan of Treatment Scheduled Procedures Name Priority Associated Diagnoses Date/Time COLONOSCOPY Diarrhea documented as of this encounter Visit Diagnoses Not on filedocumented in this encounter Additional Health Concerns Assessment Noted Time PHQ-9 Depression Total Score: 6 12/06/2019 10:58 AM CD T documented as of this encounter Care Teams Manufacturing Industrial Engineer Relationship Specialty Start Date End Date Alberto Locke M.D. PCP - General Family Medicine 04/27/19 [address] [place] [phone] documented as of this encounter
--- OUTSIDE RECORDS SUMMARY | 2022-07-03 10:35 | XMS_ITS | Encounter Summary ---
:1985 Author Organization [facility] Address [address] [place] [address] Care Team Providers Name Role Phone Alberto Locke M.D. Primary Care Provider Encounter Details Date Type Department Care Team Description 07/03/2019 Orders Only Department of Family Alberto Locke M.D. Medicine, [facility], [address] [facility] [place] [address] [address] [place] [address] [phone] Social History Tobacco Use Types Packs/Day Years [...] How often do you attend taoism or temple More than 4 time s [...] to pay for the very basics like [employer] hat hard 07/09/2020 food, housing, medical care, [...] documented as of this encounter Care Teams Conveyor Loader Relationship Specialty Start Date End Date Alberto Locke M.D. PCP - General Family Medicine 04/27/19 [address] [place] [address] documented as of this encounter
--- OUTSIDE RECORDS SUMMARY | 2022-07-03 10:35 | XMS_ITS | Encounter Summary ---
:1985 Author Organization [facility] Address [address] [place] [address] Care Team Providers Name Role Phone Blaire Bundy P.A.-C. Primary Care Provider Reason for Referral Outpatient (Routine) - Closed Specialty Diagnoses / Procedures Referred By Contact Refer red To Contact Obstetrics and Diagnoses PAR Melany Montoya [facility] Gynecology CHRISTOPH RIVERO, M.S.N., B.S.N., R.N. [address] [facility] [place] [address] Referral ID Status Reason Start Date Expiration Date Visits Requ ested Visits Authorized [id number] Closed 04/19/2019 04/18/2020 1 1 Scheduling Instructions Add to my schedule 0815 Reason for Visit Reason Comments Post-op Visit Encounter Details Date Type Department Care Team Description 04/19/2019 Office Visit Department of Melany Montoya, S ection Obstetrics and CHRISTOPH RIVERO, Delivery ([facility] ) Gynecology in [facility] M.S.NBrittaney, B.S.N., (Primar y Dx) [place], [place] R.N. 701 [facility] 1899 [facility] [place] [address] [phone] Social History Tobacco Use Types Packs/Day Years [...] How often do you attend hinduism or sabianist More than 4 time s [...] documented as of this encounter Care Teams Engineering Librarian Relationship Specialty Start Date End Date Blaire Bundy P.A.-C. PCP - General 02/04/17 04/26/19 documented as of this encounter
--- OUTSIDE RECORDS SUMMARY | 2022-07-03 10:35 | XMS_ITS | Encounter Summary ---
:1985 Author Organization [facility] Address [address] [place] [address] Care Team Providers Name Role Phone Alberto Lcoke M.D. Primary Care Provider Reason for Referral Outpatient (Routine) - Closed Specialty Diagnoses / Procedures Referred By Contact Refer red To Contact Family Alberto Hercules M.D. [facility] [address] [phone] Referral ID Status Reason Start Date Expiration Date Visits Requ ested Visits Authorized [id number] Closed 12/06/2019 12/05/2020 1 1 Scheduling Instructions Face to face or virtual depending on COV ID restrictions at that time ehavioral Health (Routine) - Closed Specialty Diagnoses / Procedures Referred By Contact Refer red To Contact Psychiatry / Psychiatry Diagnoses Depression Major Recurrent (HCC) Alberto Locke M.D. [facility] and Psychology [address] [place] [phone] Referral ID Status Reason Start Date Expiration Date Visits Requ ested Visits Authorized [id number] Closed 12/06/2019 12/05/2020 1 1 utpatient (Routine) - Closed Specialty Diagnoses / Procedures Referred By Contact Refer red To Contact Family Alberto Hercules M.D. [facility] [address] [phone] Referral ID Status Reason Start Date Expiration Date Visits Requ ested Visits Authorized [id number] Closed 12/06/2019 12/05/2020 1 1 Scheduling Instructions Face to face family med but must do COVI D triage clearance first Reason for Visit Reason Comments Follow-up ? lab -hgb Outpatient (Routine) - Closed Specialty Diagnoses / Procedures Referred By Contact Refer red To Contact Family Medicine Alberto Locke M.D. [facility] [address] [place] [address] Referral ID Status Reason Start Date Expiration Date Visits Requ ested Visits Authorized [id number] Closed 05/31/2019 05/30/2020 1 1 Encounter Details Date Type Department Care Team Description 12/06/2019 Virtual Visit Department of Alberto Campbell M.D. Depression Major Recurrent (HCC) (Primar y Dx); Medicine, [address] Edema Ankle Right Clinic, in [facility] [phone] [place] [address] [place], [place] (Work) [phone] Social History Tobacco Use [...] How often do you attend pentecostalism or yarsanism More than 4 time s [...] Index 50.0 To 59.9 Adult ([facility]) ??? Abuse Tobacco Smoking ??? Migraine Headache ??? Apnea Sleep Obstructive ??? Gastroesophageal Reflux Disease NOS ??? Attention Deficit With Hyperactivity Disorder ??? Depression Major Recurrent ([facility]) Current Outpatient Medications Medication Sig [...] week Gets together: Once a week Attends yarsanism service: 1 to 4 times per year [...] SECTION; Surgeon: Xin De Leon M.D.; Location: [facility] OR ??? ENDOSCOPIC RETROGRADE CHOLANGIOPANCREATOGRAPHY (ERCP) N/A 11/08/2017 Procedure: ENDOSCOPIC RETROGRADE CHOLANGIOPANCREATOGRAPHY; Surgeon: Rubio Baker M.D.; Location: [facility] OR ??? ESOPHAGOGASTRODUODENOSCOPY N/A 11/11/2017 Procedure: ESOPHAGOGASTRODUODENOSCOPY; Surgeon: Rubio Baker M.D.; Location: [facility] GI LAB ??? LAPAROSCOPIC APPENDECTOMY N/A 09/08/2017 Procedure: LAPAROSCOPIC APPENDECTOMY; Surgeon: Edd Moeller D.O.; Location: [facility] OR ??? LAPAROSCOPIC CHOLECYSTECTOMY WITH CHOLANGIOGRAM N/A 03/03/2018 Procedure: LAPAROSCOPIC CHOLECYSTECTOMY POSSIBLE CHOLANGIOGRAM; Surgeon: Edd Moeller D.O.; Location: [facility] OR ??? OTHER CONVERTED SHX [...] I will refer her semi urgently to [facility] social work #2 Edema Ankle Right Due to asymmetrical nature of this LE edema she will need to be seen face to face in [facility] today I will have her talk to COVID triage nurse to clear her before she can schedule for visit with [facility] doc today. She appears to have no COVID symptoms or risk on my assessment. If she is recommended to need COVID screening she may need to be seen in ER to rule out DVT. Follow up in 1 month(s) Consults and Follow-ups to Schedule Family Medicine office visit (clinic) Dec 06, 2019 Region: [facility] Provider needed?: Other Provider Specific provider: [...] (Approximate) Semi Urg - virtual ok Region: [facility] Region Visit type: Social Work Assessment [...] visit (clinic) January 05, 2020 (Approximate) Region: [facility] Region Provider needed?: Self Visit length: [...] documented as of this encounter Care Teams Jump Iron Machine Presser Relationship Specialty Start Date End Date Alberto Locke M.D. PCP - General Family Medicine 04/27/19 [address] [place] [phone] documented as of this encounter
--- OUTSIDE RECORDS SUMMARY | 2022-07-03 10:35 | XMS_ITS | Encounter Summary ---
:1985 Author Organization [facility] Address [address] [place] [address] Care Team Providers Name Role Phone Alberto Locke M.D. Primary Care Provider Reason for Visit Reason Comments Follow-up Outpatient (Routine) - Closed Specialty Diagnoses / Procedures Referred By Contact Refer red To Contact Family Medicine Alberto Locke M.D. [facility] [address] [place] [phone] Referral ID Status Reason Start Date Expiration Date Visits Requ ested Visits Authorized [id number] Closed 12/06/2019 12/05/2020 1 1 Encounter Details Date Type Department Care Team Description 03/05/2020 Office Visit Department of Family Alberto Locke M.D. Depression Major Recurrent (HCC) (Primar y Dx); [facility], [address] Hypertension Essential Primary Clinic, in [facility] [address] [place] [address] [place], [place] (Work) [phone] Social History Tobacco Use [...] How often do you attend gnosticist or mandaeism More than 4 time s [...] Index 50.0 To 59.9 Adult ([facility]) ??? Abuse Tobacco Smoking ??? Migraine Headache ??? Apnea Sleep Obstructive ??? Gastroesophageal Reflux Disease NOS ??? Attention Deficit With Hyperactivity Disorder ??? Depression Major Recurrent ([facility]) Current Outpatient Medications Medication Sig ??? acetaminophen [...] week Gets together: Once a week Attends mandaeism service: 1 to 4 times per year [...] SECTION; Surgeon: Xin De Leon M.D.; Location: [facility] OR ??? SECTION 04/12/2019 ??? ENDOSCOPIC RETROGRADE CHOLANGIOPANCREATOGRAPHY (ERCP) N/A 11/08/2017 Procedure: ENDOSCOPIC RETROGRADE CHOLANGIOPANCREATOGRAPHY; Surgeon: Rubio Baker M.D.; Location: [facility] OR ??? ESOPHAGOGASTRODUODENOSCOPY N/A 11/11/2017 Procedure: ESOPHAGOGASTRODUODENOSCOPY; Surgeon: Rubio Baker M.D.; Location: [facility] GI LAB ??? LAPAROSCOPIC APPENDECTOMY N/A 09/08/2017 Procedure: LAPAROSCOPIC APPENDECTOMY; Surgeon: Edd Moeller D.O.; Location: [facility] OR ??? LAPAROSCOPIC CHOLECYSTECTOMY WITH CHOLANGIOGRAM N/A 03/03/2018 Procedure: LAPAROSCOPIC CHOLECYSTECTOMY POSSIBLE CHOLANGIOGRAM; Surgeon: Edd Moeller D.O.; Location: [facility] OR ??? OTHER CONVERTED SHX (SEE [...] documented as of this encounter Care Teams Chopper Feeder Relationship Specialty Start Date End Date Alberto Locke M.D. PCP - General Family Medicine 04/27/19 [address] [place] [address] documented as of this encounter
--- OUTSIDE RECORDS SUMMARY | 2022-07-03 10:35 | XMS_ITS | Encounter Summary ---
:1985 Author Organization [facility] Address [address] [place] [address] Care Team Providers Name Role Phone Alberto Locke M.D. Primary Care Provider Encounter Details Date Type Department Care Team Description 05/31/2019 Hospital Encounter Department of Alberto Locke Anemia P regnancy Laboratory Medicine M.Kelly (HCC) in [address] [address] [place], [place] [phone] [address] (Work) [phone] Social History Tobacco Use Types Packs/Day Years [...] How often do you attend christianity or catholic More than 4 time s [...] to pay for the very basics like [employer] hat hard 07/09/2020 food, housing, medical care, [...] Address City/State/ZIP Code Phon e Number [facility]- [address] [place], [place] [address] [address] [facility] [place] [address] System in [place] [address] documented in this encounter Visit Diagnoses Diagnosis Anemia (HCC) documented in this encounter Additional Health Concerns Assessment Noted Time PHQ-9 Depression Total Score: 3 05/30/2019 10:59 AM CD T documented as of this encounter Care Teams Animal Technician Relationship Specialty Start Date End Date Alberto Locke M.D. PCP - General Family Medicine 04/27/19 [address] [address] documented as of this encounter
--- OUTSIDE RECORDS SUMMARY | 2022-07-03 10:35 | XMS_ITS | Encounter Summary ---
:1985 Author Organization [facility] Address [address] [place] [address] Care Team Providers Name Role Phone Alberto Locke M.D. Primary Care Provider Encounter Details Date Type Department Care Team Description 04/25/2019 Orders Only Department of Family Alberto Locke M.D. Medicine, [facility], [address] [facility] [place] [address] [place] [address] [place] [address] [phone] Social History Tobacco Use Types Packs/Day Years [...] How often do you attend hoahaoism or sikh More than 4 time s [...] documented as of this encounter Care Teams Yard Coordinator Relationship Specialty Start Date End Date Alberto Locke M.D. PCP - General Family Medicine 04/27/19 [address] [place] [address] documented as of this encounter
--- OUTSIDE RECORDS SUMMARY | 2022-07-03 10:35 | XMS_ITS | Encounter Summary ---
:1985 Author Organization [facility] Address [address] [place] [address] Care Team Providers Name Role Phone Alberto Locke M.D. Primary Care Provider Encounter Details Date Type Department Care Team Description 12/06/2019 Hospital Encounter Department of Ebony, Nuno W, Pain L ower Leg Right; [facility] Right [address] [phone] Social History Tobacco Use Types Packs/Day Years [...] How often do you attend evangelical or presybeterian More than 4 time s [...] to pay for the very basics like [employer] hat hard 07/09/2020 food, housing, medical care, [...] documented as of this encounter Care Teams Check Processor Relationship Specialty Start Date End Date Alberto Locke M.D. PCP - General Family Medicine 04/27/19 [address] [place] [address] documented as of this encounter
--- OUTSIDE RECORDS SUMMARY | 2022-07-03 10:35 | XMS_ITS | Encounter Summary ---
:1985 Author Organization [facility] Address [address] [place] [address] Care Team Providers Name Role Phone Alberto Locke M.D. Primary Care Provider Reason for Referral Outpatient (Routine) - Closed Specialty Diagnoses / Procedures Referred By Contact Refer red To Contact Family [facility]to Hercules [facility].D. [facility] [address] [phone] Referral ID Status Reason Start Date Expiration Date Visits Requ ested Visits Authorized [id number] Closed 05/31/2019 05/30/2020 1 1 Scheduling Instructions Dep Reason for Visit Reason Comments Care Recheck anemia Outpatient (Routine) - Closed Specialty Diagnoses / Procedures Referred By Contact Refer red To Contact Family Alberto Hercules M.D. [address] [phone] Referral ID Status Reason Start Date Expiration Date Visits Requ ested Visits Authorized [id number] Closed 04/27/2019 04/26/2020 1 1 Encounter Details Date Type Department Care Team Description 05/31/2019 Office Visit Department of Alberto Campbell M.D. Anemia (HCC) (Prima ry Dx); [address] Depression Major Recurrent (HCC) Clinic, in [facility] [address] [address] [facility] [phone] [place], [place] (Work) [phone] Social History Tobacco Use [...] How often do you attend religious or caodaism More than 4 time s [...] Index 50.0 To 59.9 Adult ([facility]) ??? Abuse Tobacco Smoking ??? Migraine Headache ??? Apnea Sleep Obstructive ??? Gastroesophageal Reflux Disease NOS ??? Attention Deficit With Hyperactivity Disorder ??? Depression Major Recurrent ([facility]) ??? Section Delivery ([facility]) ??? Anemia ([facility]) Current Outpatient Medications Medication Sig ??? [...] week Gets together: Once a week Attends caodaism service: 1 to 4 times per year [...] SECTION; Surgeon: Xin De Leon M.D.; Location: [facility] OR ??? ENDOSCOPIC RETROGRADE CHOLANGIOPANCREATOGRAPHY (ERCP) N/A 11/08/2017 Procedure: ENDOSCOPIC RETROGRADE CHOLANGIOPANCREATOGRAPHY; Surgeon: Rubio Baker M.D.; Location: [facility] OR ??? ESOPHAGOGASTRODUODENOSCOPY N/A 11/11/2017 Procedure: ESOPHAGOGASTRODUODENOSCOPY; Surgeon: Rubio Baker M.D.; Location: [facility] GI LAB ??? LAPAROSCOPIC APPENDECTOMY N/A 09/08/2017 Procedure: LAPAROSCOPIC APPENDECTOMY; Surgeon: Edd Moeller D.O.; Location: [facility] OR ??? LAPAROSCOPIC CHOLECYSTECTOMY WITH CHOLANGIOGRAM N/A 03/03/2018 Procedure: LAPAROSCOPIC CHOLECYSTECTOMY POSSIBLE CHOLANGIOGRAM; Surgeon: Edd Moeller D.O.; Location: [facility] OR ??? OTHER CONVERTED SHX [...] visit (clinic) Nov 30, 2019 (Approximate) Region: [facility] Provider needed?: Self Visit length: Long Visit type: General Dep documented in this encounter Plan of Treatment Scheduled Procedures Name Priority Associated Diagnoses Date/Time COLONOSCOPY Diarrhea Scheduled Referrals Name Type Priority Associated Diagnoses Order [facility] Family Medicine Outpatient Referral Routine Expec pipe: office visit 11/30/2019 (clinic) (Approximate), Expires: 05/31/2022 documented as of this encounter Visit Diagnoses Diagnosis Anemia (HCC) - Prim shonna Depression Major Recurrent (HCC) documented in this encounter Additional Health Concerns Assessment Noted Time PHQ-9 Depression Total Score: 3 05/30/2019 10:59 AM CD T documented as of this encounter Care Teams Pulp And Paper Tester Relationship Specialty Start Date End Date Alberto Locke M.D. PCP - General Family Medicine 04/27/19 [address] [phone] documented as of this encounter
--- OUTSIDE RECORDS SUMMARY | 2022-07-03 10:35 | XMS_ITS | Encounter Summary ---
:1985 Author Organization [facility] Address [address] [place] [address] Care Team Providers Name Role Phone Alberto Locke M.D. Primary Care Provider Reason for Visit Reason Comments Care 6 week check Outpatient (Routine) - Closed Specialty Diagnoses / Procedures Referred By Contact Refer red To Contact Obstetrics and Diagnoses Section Delivery (HCC) Harleen Josue D.O. [facility] Gynecology [address] [place] [phone] Referral ID Status Reason Start Date Expiration Date Visits Requ ested Visits Authorized [id number] Closed 04/15/2019 04/14/2020 1 1 Encounter Details Date Type Department Care Team Description 05/30/2019 Office Visit Department of Leonora Reaves, Care Postpar fercho ([facility]LY [facility]) (Primary Dx); Obstetrics and OPERATIONAL METEOROLOGIST, C.N.P. Section Delivery (FORMERLY [facility]); Gynecology in [address] [place] [address] [address] [place], [place] [phone] (Work) [phone] Social History Tobacco Use Types Packs/Day Years [...] How often do you attend episcopal or hindu More than 4 time s [...] in this encounter Progress Notes Leonora Reaves, OPERATIONAL METEOROLOGIST, C.N.P. - 05/30/2019 11:00 AM CDT SUBJECTIVE [...] SECTION; Surgeon: Xin De Leon M.D.; Location: [facility] OR ??? ENDOSCOPIC RETROGRADE CHOLANGIOPANCREATOGRAPHY (ERCP) N/A 11/08/2017 Procedure: ENDOSCOPIC RETROGRADE CHOLANGIOPANCREATOGRAPHY; Surgeon: Rubio Baker M.D.; Location: [facility] OR ??? ESOPHAGOGASTRODUODENOSCOPY N/A 11/11/2017 Procedure: ESOPHAGOGASTRODUODENOSCOPY; Surgeon: Rubio Baker M.D.; Location: [facility] GI LAB ??? LAPAROSCOPIC APPENDECTOMY N/A 09/08/2017 Procedure: LAPAROSCOPIC APPENDECTOMY; Surgeon: Edd Moeller D.O.; Location: [facility] OR ??? LAPAROSCOPIC CHOLECYSTECTOMY WITH CHOLANGIOGRAM N/A 03/03/2018 Procedure: LAPAROSCOPIC CHOLECYSTECTOMY POSSIBLE CHOLANGIOGRAM; Surgeon: Edd Moeller D.O.; [facility] abstinent at this time. Consult placed to [facility] SITE SAFETY COORDINATOR #2 Section Delivery (HCC) Mackenzie type rash [...] documented as of this encounter Care Teams Test Specialist Relationship Specialty Start Date End Date Alberto Locke M.D. PCP - General Family Medicine 04/27/19 [address] [place] [address] documented as of this encounter
--- OUTSIDE RECORDS SUMMARY | 2022-07-03 10:35 | XMS_ITS | Encounter Summary ---
:1985 Author Organization [facility] Address [address] [place] [address] Care Team Providers Name Role Phone Alberto Locke M.D. Primary Care Provider Encounter Details Date Type Department Care Team Description 06/16/2019 Clinical Communication Department of Alberto Roberts M.D. [address], [facility] [phone] [place] [address] [place], [place] (Work) [phone] Social History Tobacco Use [...] How often do you attend hoahaoism or yazidi More than 4 time s [...] Jayshree HAWKINS. Please return her call at [phone]. documented in this encounter Plan of Treatment Scheduled Procedures Name Priority Associated Diagnoses Date/Time COLONOSCOPY Diarrhea documented as of this encounter Visit Diagnoses Not on filedocumented in this encounter Additional Health Concerns Assessment Noted Time PHQ-9 Depression Total Score: 3 05/30/2019 10:59 AM CD T documented as of this encounter Care Teams Chair Post Machine Operator Relationship Specialty Start Date End Date Alberto Locke M.D. PCP - General Family Medicine 04/27/19 [address] [place] [address] documented as of this encounter
--- OUTSIDE RECORDS SUMMARY | 2022-07-03 10:35 | XMS_ITS | Encounter Summary ---
:1985 Author Organization [facility] Address [address] [place] [address] Care Team Providers Name Role Phone Alberto Locke M.D. Primary Care Provider Reason for Visit Reason Comments Leg Pain lower right leg,red,swollen, ,alittle painful,for few weeks Outpatient (Routine) - Closed Specialty Diagnoses / Procedures Referred By Contact Refer red To Contact Family Medicine Alberto Locke M.D. [address] [phone] Referral ID Status Reason Start Date Expiration Date Visits Requ ested Visits Authorized [id number] Closed 12/06/2019 12/05/2020 1 1 Encounter Details Date Type Department Care Team Description 12/06/2019 Office Visit Department of Alberto Campbell M.D. [address] [place] [phone] Pain Lower Leg Right (Primary Dx); Medicine, [place] Nuno Beck M.D. [address] [place] [phone] Swelling Leg Right; Clinic, in [place], Pain Ne ck; [place] Depression Major Recurrent ( HCC); [address] [place] [address] Body Mass Index 50.0 To 59.9 Adult (HCC); [place] [phone] Social History Tobacco [...] How often do you attend synagogue or mandaen More than 4 time s [...] symptoms she should be seen in a rlap-tt-[id number] to rule out DVT. No fever, chills, [...] of these at a local store or [employer] 2. Episodic neck pain with radiation down [...] calm down and physical therapy is seenpeople [id number] and then can request a referral at [...] thrombus. IMPRESSION: 1. Negative for Acute DVT. uNno Beck M.D. IMSendy US PROCEDURES documented in [...] documented as of this encounter Care Teams Cemetery Worker Relationship Specialty Start Date End Date Alberto Locke M.D. PCP - General Family Medicine 04/27/19 [address] [place] [phone] documented as of this encounter
--- OUTSIDE RECORDS SUMMARY | 2022-07-03 10:36 | XMS_ITS | Encounter Summary ---
:1985 Author Organization [facility] Address [address] [place] [address] Care Team Providers Name Role Phone Blaire Bundy P.A.-C. Primary Care Provider [phone] Reason for Visit Reason Comments Contraception Appointment Request (Routine) - Closed Specialty Diagnoses / Procedures Referred By Contact Refer red To Contact Obstetrics and Diagnoses PAR [facility] Gynecology Procedures OBG NEW SPRINKLER INSPECTOR Referral ID Status Reason Start Date Expiration Date Visits Requ ested Visits Authorized [id number] Closed 07/01/2018 07/01/2019 1 1 Encounter Details Date Type Department Care Team Description 07/20/2018 Comprehensive Visit Department of Leonora Villaseñor Inser tion Contraceptive Subdermal (Primary Dx); Obstetrics and SUPERVISOR CONDITIONING YARD, C.N.P. Morbid Obesity Body Mass Index 50.0-59.9 Adult (HCC) Gynecology in [address] [phone] Social History Tobacco Use [...] How often do you attend adventism or hinduism More than 4 time s [...] Comments Blood Pressure 140/90 07/20/2018 10:50 AM POOL INSTALLER Pulse - - Temperature - - Respiratory Rate - - Oxygen Saturation - - Inhaled Oxygen Concentration - - Weight 142 kg (313 lb 0.9 oz) 07/20/2018 10:50 AM POOL INSTALLER Height - - Body Mass Index 57.24 [...] the patient and/or decision maker.: Not addressed Alexander protocol: All relevant documentation and testing were [...] completed successfully: yes Complications: no apparent complications SPRINKLER INSPECTOR Subjective: Patient is here to discuss control [...] not yet be positive. According to the [facility] quick start control care model she will repeat a test at home in 1-2 weeks, and return to clinic if a positive test. Backup control is advised for 1 week. She also has questions about weight loss surgery, weight loss. Consult is placed to [facility] in [place]. INSTALLER documented in this encounter Plan of Treatment Scheduled Procedures Name Priority Associated Diagnoses Date/Time COLONOSCOPY Diarrhea documented as of this encounter Procedures Procedure Name Priority Date/Time Associated Diagnosis Comme nts FL INS Routine 07/20/2018 11:00 Insertion Results for this NON-BIODEGRADABLE AM POOL INSTALLER Contraceptive procedure are in DRUG DEL Subdermal the results section. documented in this encounter Results FL INS NON-BIODEGRADABLE DRUG DEL (07/20/2018 11:00 AM POOL INSTALLER) Narrative MMODAL - 07/20/2018 11:00 AM POOL INSTALLER Leonora Villaseñor, JOSEFA, C.N.P. ? 07/20/2018 ??1:27 [...] the patient and/or decision maker.: ??Not addressed Alexander protocol: ??All relevant documentation and testin g [...] 68 mg subdermal Given 07/20/2018 1:21 PM POOL INSTALLER 1 each implant 1 each (NEXPLANON) 1 each, subdermal, One-Time, Starting on Wed07/20/18 at 1321, For 1 dose documented in this encounter Additional Health Concerns Assessment Noted Time PHQ-9 Depression Total Score: 7 04/07/2017 9:39 AM CDT documented as of this encounter Care Teams Project Geophysicist Relationship Specialty Start Date End Date Blaire Bundy PBrittaneyABrittaney-C. PCP - General 02/04/17 04/26/19 documented as of this encounter
--- OUTSIDE RECORDS SUMMARY | 2022-07-03 10:36 | XMS_ITS | Encounter Summary ---
:1985 Author Organization [facility] Address [address] [place] [address] Care Team Providers Name Role Phone Blaire Bundy P.A.-C. Primary Care Provider Encounter Details Date Type Department Care Team Description 04/13/2019 Clinical Communication Department of Dawna Madera Obstetrics and Adelita Reddy Gynecology in [address] [address] [place] [phone] Social History Tobacco Use Types Packs/Day Years [...] How often do you attend episcopal or presybeterian More than 4 time s [...] documented as of this encounter Care Teams Supervisor Molding Relationship Specialty Start Date End Date Blaire Bundy P.A.-C. PCP - General 02/04/17 04/26/19 documented as of this encounter
--- OUTSIDE RECORDS SUMMARY | 2022-07-03 10:36 | XMS_ITS | Encounter Summary ---
:1985 Author Organization [facility] Address [address] [place] [address] Care Team Providers Name Role Phone Blaire Bundy P.A.-C. Primary Care Provider [phone] Reason for Visit Reason Comments Post-op Lap emma 03/03/18 Outpatient (Routine) - Closed Specialty Diagnoses / Procedures Referred By Contact Refer red To Contact General Surgery Diagnoses Gallstone With Common Bile Duct Stone par review Edd Moeller, [facility] Procedures GNS POST OP D.O. [address] [place] [address] Referral ID Status Reason Start Date Expiration Date Visits Requ ested Visits Authorized [id number] Closed 03/03/2018 03/03/2019 1 1 Encounter Details Date Type Department Care Team Description 03/16/2018 Office Visit Department of General Edd Moeller Ga llstone With Common Surgery in Jason Rivera D.O. Bile Duct Stone [place] [address] [facility] [address] [place] [address] [place] [phone] [address] (Work) [phone] Social History Tobacco Use Types Packs/Day Years [...] How often do you attend presybeterian or gnosticism More than 4 time s [...] happy to reevaluate as needed Job ID: [id number] documented in this encounter Plan of Treatment Scheduled Procedures Name Priority Associated Diagnoses Date/Time COLONOSCOPY Diarrhea documented as of this encounter Visit Diagnoses Diagnosis Gallstone With Common Bile Duct Stone documented in this encounter Additional Health Concerns Assessment Noted Time PHQ-9 Depression Total Score: 7 04/07/2017 9:39 AM CDT documented as of this encounter Care Teams Talent Acquisition Assistant Relationship Specialty Start Date End Date Blaire Bundy P.A.-C. PCP - General 02/04/17 04/26/19 documented as of this encounter
--- OUTSIDE RECORDS SUMMARY | 2022-07-03 10:36 | XMS_ITS | Encounter Summary ---
:1985 Author Organization [facility] Address [address] [place] [address] Care Team Providers Name Role Phone Blaire Bundy P.A.-C. Primary Care Provider [phone] Encounter Details Date Type Department Care Team Description 05/11/2018 Immunization Department of Blaire Bundy P.A.-C. [address] [place], [place] [id number] Need Vaccine Pediatrics in [place] Zeinab Gong, L.P.N. [address] [place] [address] Immunization ([place], [place] Dx) [address] [place] [address] Social History Tobacco Use Types [...] How often do you attend pentecostalism or church More than 4 time s [...] documented as of this encounter Care Teams Nitriles Lab Technician Relationship Specialty Start Date End Date Blaire Bundy P.A.-C. PCP - General 02/04/17 04/26/19 documented as of this encounter
--- OUTSIDE RECORDS SUMMARY | 2022-07-03 10:36 | XMS_ITS | Encounter Summary ---
:1985 Author Organization [facility] Address [address] [place] [address] Care Team Providers Name Role Phone Blaire Bundy P.A.-C. Primary Care Provider [phone] Reason for Visit Auth/Cert Specialty Diagnoses / Procedures Referred By Contact Refer red To Contact Diagnoses Precipitate Labor (HCC) Procedures x Referral ID Status Reason Start Date Expiration Date Visits Requ ested Visits Authorized [id number] 1 1 Encounter Details Date Type Department Care Team Description 04/12/2019 Anesthesia Event [facility] MAIN OR Alfonso Schmitz M.D., J.D. [address] [place] [phone] [address] Alfonso Tang, PROJECT HIRE, FISHERIES TECHNICAL OFFICER [address] [facility] [place] [address] [place] [address] Anesthesia Record Procedure Summary Procedure [...] h andoff to the receiving staff during [facility] ch we 1. Identified the [...] 1418 by Abdomen; and Antionette Marcos, R.N. Vvkz-Vebyge-Lfaj groun dermabond; DRSG COTTON OPENER d, Schedulin g WND ADH NEONAT 2X3.75 Automated Batch Job (x3); 05/13/21 (Removed by background completion utility); 1418 (Removed by background completion utility) (RETIRED) Incision 03/03/18; 0953; 03/03/18 0953 by 05/13/21 141 8 by Abdomen; dermabond; Darius Castro RBrittaneyN. [facility] katalina-Backgroun SPNG DRSG COTTON OPENER GZ STRL d, Schedul ing 8PLY 2X2; [...] Placement Alfonso Stout APRN, Fetzer, Megan J RRoverto Time: 1007 (created FISHERIES TECHNICAL OFFICER via procedure documentation); Mask Ventilation: Not attempted; Type: Standard ETT; Single Lumen Tube Size: 7 mm; Cuffed: Yes; Location: Oral; Removal Date: 05/19/21 (Not present upon arrival to ED) (RETIRED) Incision 04/12/19; 1041; 04/12/19 1041 by 05/13/21 141 8 by Abdomen; [facility] Sarah Solis, [facility]-Backgroun SURG ADH 3.5X12 (x1); R.N. d, Schedul ing 05/13/21 (Removed by Automated B [facility] Job background completion utility); 1418 (Removed [...] How often do you attend sikhism or cheondoism More than 4 time s [...] Procedure Summary Date: 04/12/19 Room / Location: [facility] 1401 / [facility] GI Anesthesia Start: 1003 Anesthesia Stop: 1140 [...] 04/12/19 1003 Procedure: SECTION (N/A ) Location: [address] 1401 / [facility] Surgeon: Xin De Leon M.D. Pertinent components [...] Bonner CRNA RBrittaneyNBrittaney - 07/14/2019 1:05 PM IRRIGATOR Addendum created 07/14/19 1305 by Alfonso Bonner CRNA, R.NBrittaney Care Path modified GATOR Addendum Note - Alfonso Bonner CRNA RRoverto - 04/18/2019 8:34 AM CDT Addendum created 04/18/19 0834 by Alfonso Bonner CRNA, R.NBrittaney Care Path modified, Intraprocedure Blocks edited, LDA updated via procedure documentation, Sign clinical note Addendum Note - Alfonso Schmitz M.D., Reta - 04/14/2019 5:32 AM CDT Addendum created 04/14/19 0532 by Alfosno Schmitz M.D., Reta Sign clinical note documented [...] as of this encounter Care Teams Senior Talent Management Consultant Relationship Specialty Start Date End Date Blaire Bundy P.A.-C. PCP - General 02/04/17 04/26/19 documented as of this encounter
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
--- OUTSIDE RECORDS SUMMARY | 2022-07-03 10:36 | XMS_ITS | Encounter Summary ---
:1985 Author Organization [facility] Address [address] [place] [address] Care Team Providers Name Role Phone Blaire Bundy P.A.-C. 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 Mass Index 50.0-59.9 Gynecology in [facility] [address] Adult (HCC) ([place], [place] Dx) [address] [place] [address] [place], [place] [phone] [address] (Work) [phone] Social History Tobacco Use Types Packs/Day Years [...] How often do you attend sabianist or mormon More than 4 time s [...] Morbid Obesity Body Mass Index 50.0-59.9 Adult ([facility]) - Primary documented in this encounter Additional Health Concerns Assessment Noted Time PHQ-9 Depression Total Score: 7 04/07/2017 9:39 AM CDT documented as of this encounter Care Teams Bench Worker Binding Relationship Specialty Start Date End Date Blaire Bundy P.A.-C. PCP - General 02/04/17 04/26/19 documented as of this encounter
--- OUTSIDE RECORDS SUMMARY | 2022-07-03 10:36 | XMS_ITS | Encounter Summary ---
:1985 Author Organization [facility] Address [address] [place] [address] Care Team Providers Name Role Phone Blaire Bundy P.A.-C. Primary Care Provider Encounter Details Date Type Department Care Team Description 03/14/2018 Orders Only Department of Gloria Johnson High Risk Medication Orthopedic Surgery in R, D.P.M. (Primary Dx) [place], [place] [address] [place]ABIAN [address] [place] [address] [phone] Social History Tobacco Use Types Packs/Day Years [...] How often do you attend samaritan or restorationism More than 4 time s [...] documented as of this encounter Care Teams Band Nailer Relationship Specialty Start Date End Date Blaire Bundy P.A.-C. PCP - General 02/04/17 04/26/19 documented as of this encounter
--- OUTSIDE RECORDS SUMMARY | 2022-07-03 10:36 | XMS_ITS | Encounter Summary ---
:1985 Author Organization [facility] Address [address] [place] [address] Care Team Providers Name Role Phone Blaire Bundy P.A.-C. Primary Care Provider [phone] Encounter Details Date Type Department Care Team Description 07/21/2018 Orders Only Department of Obstetrics Leonora Reaves A PRN, and Gynecology in [address] [address] [place] [address] [phone] Social History Tobacco Use Types Packs/Day Years [...] How often do you attend faith or shinto More than 4 time s [...] documented as of this encounter Care Teams Fundraising Sale Representative Relationship Specialty Start Date End Date Blaire Bundy P.A.-C. PCP - General 02/04/17 04/26/19 documented as of this encounter
--- OUTSIDE RECORDS SUMMARY | 2022-07-03 10:36 | XMS_ITS | Encounter Summary ---
:1985 Author Organization [facility] Address [address] [place] [address] Care Team Providers Name Role Phone Blaire Bundy P.A.-C. Primary Care Provider [phone] Encounter Details Date Type Department Care Team Description 07/20/2018 Hospital Encounter Department of Marisol Irving Contrace ption Personal Laboratory Medicine TIMBER SPRINKLER, C.N.P. History in [address] [address] [place], [place] [phone] [address] (Work) [phone] Social History Tobacco Use Types Packs/Day Years [...] How often do you attend yazidi or restorationism More than 4 time s [...] Results for this POCT, U (LAB) AM [facility] History procedure are in the results section. documented in this encounter Results Test, POCT, Urine (lab) (07/20/2018 10:24 AM [facility]) P athologist Signature Negative 07/20/2018 [facility] Test, POCT, U 10:31 AM [facility] Specimen Anatomical Collection Method Collection Time Receive d Time (Source) Location / / Volume Laterality Urine (Urine, 07/20/2018 10:24 07/20/2018 Clean Catch) AM [facility] 10:24 AM [facility] Kendal Carter APRNNJud LAB POCT ORDERABLES - DEVICE Performing Organization Address City/State/ZIP Code Phon e Number [facility] [address] [place] [address] [place] [address] [facility] documented in this encounter Visit Diagnoses Diagnosis Contraception Personal History documented in this encounter Additional Health Concerns Assessment Noted Time PHQ-9 Depression Total Score: 7 04/07/2017 9:39 AM CDT documented as of this encounter Care Teams Wafer Polishing Lead Worker Relationship Specialty Start Date End Date Blaire Bundy P.A.-C. PCP - General 02/04/17 04/26/19 documented as of this encounter
--- OUTSIDE RECORDS SUMMARY | 2022-07-03 10:36 | XMS_ITS | Encounter Summary ---
:1985 Author Organization [facility] Address [address] [place] [address] Care Team Providers Name Role Phone Blaire Bundy P.A.-C. Primary Care Provider [phone] Reason for Visit Reason Onset Date Comments assessment 07/01/2018 First call attempt Encounter Details Date Type Department Care Team Description 07/01/2018 Clinical Communication Department of Leonora Reaves Pr egnancy Obstetrics and JOSEFA C.N.PBrittaney assessment (First Gynecology in [address] call attem pt) [address] [phone] Social History Tobacco Use Types Packs/Day [...] How often do you attend amish or oriental orthodox More than 4 time [...] Maurice Ivey R.N. - 07/04/2018 8:40 AM STOCK DRIVER Addended by: MAURICE IVEY on: 07/04/2018 08:40 AM Modules accepted: Orders K DRIVER Telephone Encounter - Maurice Ivey R.N. - 07/04/2018 8:36 AM STOCK DRIVER If yes to any of the following [...] intercourse for two weeks before the procedure K DRIVER Telephone Encounter - Jayshree Morocho R.N. - 07/01/2018 2:39 PM CST Attempted to contact pt. Left message on identifiable VM to [facility] for more information K DRIVER Telephone Encounter - Tejal Arora - 07/01/2018 2:00 PM CST Dear Nurse, Patient is not on control and would like to have Nexplanon or an IUD placed. Is there a way you can call Carol and see if a test is needed, prior to appointment. Thank you, Tejal [employer] K DRIVER documented in this encounter Plan of Treatment Scheduled Procedures Name Priority Associated Diagnoses Date/Time COLONOSCOPY Diarrhea documented as of this encounter Results Test, POCT, Urine (lab) (07/20/2018 10:24 AM STOCK DRIVER) P athologist Signature Negative 07/20/2018 [facility] Test, POCT, U 10:31 AM STOCK DRIVER [facility] People and Pages LAB Specimen Anatomical Collection Method Collection Time Receive d Time (Source) Location / / Volume Laterality Urine (Urine, 07/20/2018 10:24 07/20/2018 Clean Catch) AM STOCK DRIVER 10:24 AM STOCK DRIVER Marisol Irving APRN C.N.PBrittaney LAB POCT ORDERABLES - DEVICE Performing Organization Address City/State/ZIP Code Phon e Number [facility] [address] [place] [address] [place] documented in this encounter Visit Diagnoses Diagnosis Contraception Personal History - Primary documented in this encounter Additional Health Concerns Assessment Noted Time PHQ-9 Depression Total Score: 7 04/07/2017 9:39 AM CDT documented as of this encounter Care Teams Stem Sizer Relationship Specialty Start Date End Date Blaire Bundy P.A.-C. PCP - General 02/04/17 04/26/19 documented as of this encounter
--- OUTSIDE RECORDS SUMMARY | 2022-07-03 10:37 | XMS_ITS | Encounter Summary ---
:1985 Author Organization [facility] Address [address] [place] [address] Care Team Providers Name Role Phone Blaire Bundy P.A.-C. 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 [place] [address] Referral ID Status Reason Start Date Expiration Date Visits Requ ested Visits Authorized [id number] Closed 02/11/2018 02/11/2019 1 1 Encounter Details Date Type Department Care Team Description 02/11/2018 Orders Only Department of General Keo, Lydia Ca lculus Of Bile Duct Surgery in [facility] Without Cholangitis Or [place] [address] [facility] Chole[facility]is With [address] [place], [place]st[place] [address] Dx) [phone] Social History Tobacco Use Types [...] How often do you attend pentecostalism or adventist More than 4 time s [...] documented as of this encounter Care Teams Cosmetic Dentist Relationship Specialty Start Date End Date Blaire Bundy P.A.-C. PCP - General 02/04/17 04/26/19 documented as of this encounter
--- OUTSIDE RECORDS SUMMARY | 2022-07-03 10:37 | XMS_ITS | Encounter Summary ---
:1985 Author Organization [facility] Address [address] [place] [address] Care Team Providers Name Role Phone Blaire Bundy P.A.-C. Primary Care Provider [phone] Reason for Referral Outpatient (Routine) - Closed Specialty Diagnoses / Procedures Referred By Contact Refer red To Contact General Surgery Diagnoses Gallstone With Common Bile Duct [place] par review Jaquan Monahan [facility] Region Procedures GNS POST OP D.O. [address] [place] [address] Referral ID Status Reason Start Date Expiration Date Visits Requ ested Visits Authorized [id number] Closed 03/03/2018 03/03/2019 1 1 Reason for Visit Auth/Cert Specialty Diagnoses / Procedures Referred By Contact Refer red To Contact Diagnoses Gallstone With Common Bile Duct [place] Procedures [place] LAPAROSCOPY CHOLECYST W CHOLNG LAPAROSCOPIC CHOLECYSTECTOMY WITH CHOLANGIOGRAM Referral ID Status Reason Start Date Expiration Date Visits Requ ested Visits Authorized [id number] 1 1 Encounter Details Date Type Department Care Team Description 03/03/2018 Hospital Encounter [facility] OR Jaquan Monahan With [address] P, D.OBrittaney Common Bile Duct [place] [address] [place] [address] [address] [phone] [place], [place] [address] Social History Tobacco Use Types Packs/Day Years [...] How often do you attend restorationism or mandaeism More than 4 time s [...] through Care Everywhere.Home Care Following Gallbladder Surgery (Italian)documented in this encounter Medications at Time of [...] Role: * Jaquan Monahan D.O. - Primary Senior Web Designer: Naye Stockton L.P.N. Anesthesia Type: General Pre-Operative [...] of these were recovered in the suction supervisor crack off. The gallbladder was placed in Endo-Catch bag [...] Name Type Priority Associated Diagnoses Order S [facility] General Surgery Outpatient Referral Routine [...] Component Value Ref Test Analysis Performed At [facility] Method Time Signature PATHOLOGY Patient Name: PUNEET CLAYTON [facility] MR#: [id number] LAUREL Submitting Physician: JAQUAN MONAHAN DO [id number] Specimen #[id number] Performing Lab: ??[facility] ? [address] [facility] [address] Source: Gallbladder Clinical History/Pre-Op Gallstone with common [...] trabeculated. ??The mucosal wall measures 0.2 cm. ??Sewer Pipe Offbearer sections are submitted in cassette A1. KG/ps ?? Diagnosis Gallbladder, cholecystectomy: CHOLELITHIASIS. Electronically Signed By USAMA MALDONADO MD - 03/04/2018 pjs/03/04/2018 Specimen (Source) Anatomical Collection Method Collection Time Re ceived Time Location / / Volume Laterality Tissue 03/03/2018 9:54 AM (Gallbladder) CDT Jaquan Monahan D.O. LAB SURG PATH ORDERABLES Performing Organization Address City/State/[facility] Phon e Number [facility] [address] [address] documented in this encounter Visit Diagnoses Diagnosis [...] (COMPLETED) 730 (Given - Provider: Perri Cooper RBrittaneyNBrittaney) 2.5 mg, nebulization, Once, On Bryanna 03/03/18 at 0700, For 1 dose, Pre-Op ciprofloxacin in D5W IVPB 400 mg (CIPRO) (COMPLETED) 714 (New Bag - Provider: Ruben RossiNBrittaney) 400 mg, intravenous, at 200 mL/hr, Admin ister over 60 Minutes, Once, On Bryanna 03/03/18 at 0715, For 1 dose, Intra-Op, Preoperatively within 2 hours prior to surgical incision. premix bag, Drug Monitoring P rogram: Pharmacist to adjust medication order based on comorbities and indication., Indications: Prophylaxis, surgical heparin (porcine) injection 5,000 Units (COMPLETED) 730 (Given - Provider: Perri Cooper R.N.) 5,000 Units, subcutaneous, Once, On Bryanna 03/03/18 [...] 843 (Given - Provider: Rosalee Desir APRN, AIRCRAFT DISPATCHER) 500 mg, intravenous, at 200 mL/hr, Admin ister over 30 Minutes, Once, On Bryanna 03/03/18 at 0715, For 1 dose, Intra-Op, Preoperatively within 1 hour prior to surgical incision., Indications: Prophylaxis, surgical sodium chloride injection 10 mL 0700 (Due) [...] 0729 (New Bag - Provider: Perri Cooper R.NBrittaney)0827 (Rate/Dose Verify - Provider: Rosalee Desir APRN, AIRCRAFT DISPATCHER)1019 (Anesthesia Volume Adjustment - Provider: Rosalee Desir APRN, BRENDA)1242 (Stopped - Provider: Melany Lira RBrittaneyNBrittaney) 20 mL/hr, intravenous, Continuous, Starting on Bryanna 03/03/18 at 07 00, Pre-Op PRN Medication Order 03/01/2018 03/02/2018 03/03/2018 bupivacaine PF 0.5 % (5 mg/mL) injection (MARCAINE) (CANCELED) 0958 (Given - Provider: Jaquan Monahan D.O.) As needed, Starting on Bryanna 03/03/18 at 0958, Intra-Op dexamethasone injection [...] Lira R.N.)1054 (Given - Provider: Melany Lira R.N.)1058 (Given - Provider: Melany Lira R.N.) 25 mcg, intravenous, Every 2 min PRN, Fo r pain 4 or greater (maximum 100 mcg). If max dose of Fentanyl is reached and if pain is greater than 4, discontinue Fentanyl: give Hydromorphone, Starting on Bryanna 03/03/18 at 1027, PACU (only) HYDROmorphone [...] er: Jaquan Monahan D.O.) As needed, Starting on Bryanna 03/03/18 at 0959, Intra-Op lidocaine 10 mg/mL (1 %) injection (XYLOCAINE) (CANCELED) 0959 (Given - Provider: Jaquan Monahan D.O.) As needed, Starting on Bryanna 03/03/18 at 0959, Intra-Op metoprolol tablet 12.5 mg (LOPRESSOR) 12.5 mg, oral, Once as needed, if patien t did not take their last scheduled dose of beta robert prior to arrival, Starting on Bryanna 03/03/18 at 0659, For 1 dose, Pre-Op, Do not give if patient does not ta ke scheduled beta blockers, if patient i s receiving intravenous vasopressors or inotropes, if heart rate is less than 50 beats per minute, if systolic blood pressure is less than 90 mmHg or if diastolic blood pressure is less than 40 mmHg, or if patient has an allergy to metoprolol. naloxone injection 0.2 mg (NARCAN) [...] care, Starting on Bryanna 03/03/18 at 0659, Pre- Op, Prior to and following infusion and between [...] documented as of this encounter Care Teams Fire Department Battalion Chief Relationship Specialty Start Date End Date Blaire Bundy P.A.-C. PCP - General 02/04/17 04/26/19 documented as of this encounter
--- OUTSIDE RECORDS SUMMARY | 2022-07-03 10:37 | XMS_ITS | Encounter Summary ---
:1985 Author Organization [facility] Address [address] [place] [address] Care Team Providers Name Role Phone Blaire Bundy P.A.-C. Primary Care Provider [phone] Reason for Visit Auth/Cert Specialty Diagnoses / Procedures Referred By Contact Refer red To Contact Diagnoses Gallstone With Common Bile Duct [place] Procedures [place] LAPAROSCOPY CHOLECYST W CHOLNG LAPAROSCOPIC CHOLECYSTECTOMY WITH CHOLANGIOGRAM Referral ID Status Reason Start Date Expiration Date Visits Requ ested Visits Authorized [id number] 1 1 Encounter Details Date Type Department Care Team Description 03/03/2018 Anesthesia Event [facility] MAIN OR [facility]ascencia M.D. [address] [facility] [address] [facility] [place] [address] [address] [place] [phone] (Wo rk) Anesthesia Record Procedure Summary [...] by and dermabond; Antionette Cooper CRT, R.N. [facility] WND ADH NEONAT 2X3.75 d, Schedul [...] 1015 by Placement Time: 0837 Rosalee Xiong, BENZOL OPERATOR, Rosalee Xiong, BENZOL OPERATOR, (created via procedure ADULT EDUCATOR ADULT EDUCATOR documentation); Mask Ventilation: Oral/Nasal airway needed; Type: Standard ETT; Single Lumen Tube Size: 7 mm; Cuffed: Yes; Location: Oral; Removal Date: 03/03/18; Removal Time: 1015 (RETIRED) Incision 03/03/18; 952; Abdomen; 03/03/18 0953 by 1418 by Darius Coyle CRT, R.N. May q-Lgosqu-Nkerynonx GZ STRL 8PLY 2X2; d, Scheduling 05/13/21 (Removed by Automated [facility] [...] How often do you attend hoahaoism or mandaen More than 4 time s [...] Date: 03/03/18 Room / Location: OR 03 [facility] 1404 / [facility] OR Anesthesia Start: 826 Anesthesia Stop: [...] patient / legal guardian, or through an freelance interpreter/translator; patient evaluated and approved for anesthesia / [...] event: no complications Procedure Note Rosalee Xiong, BENZOL OPERATOR, ADULT EDUCATOR - 03/03/2018 8 :54 AM CDT Airway [...] documented as of this encounter Care Teams Day Care Attendant Relationship Specialty Start Date End Date Blaire Bundy P.A.-C. PCP - General 02/04/17 04/26/19 documented as of this encounter
--- OUTSIDE RECORDS SUMMARY | 2022-07-03 10:37 | XMS_ITS | Encounter Summary ---
:1985 Author Organization [facility] Address [address] [place] [address] Care Team Providers Name Role Phone Blaire Bundy P.A.-C. Primary Care Provider Encounter Details Date Type Department Care Team Description 02/09/2018 Clinical Communication Department of General Aline Dunbar Surgery in [place], L, [address] [phone] Social History Tobacco Use Types Packs/Day Years [...] How often do you attend mu-ism or druze More than 4 time s [...] documented as of this encounter Care Teams Card Maker Relationship Specialty Start Date End Date Blaire Bundy P.A.-C. PCP - General 02/04/17 04/26/19 documented as of this encounter
--- OUTSIDE RECORDS SUMMARY | 2022-07-03 10:37 | XMS_ITS | Encounter Summary ---
:1985 Author Organization [facility] Address [address] [place] [address] Care Team Providers Name Role Phone Blaire Bundy P.A.-C. Primary Care Provider Reason for Visit Outpatient (Routine) - Closed Specialty Diagnoses / Procedures Referred By Contact Refer red To Contact Diagnoses Gallstone With Common Bile Duct [place] Edd Moeller D.O. [address] [address] Referral ID Status Reason Start Date Expiration Date Visits Requ ested Visits Authorized [id number] Closed 02/09/2018 02/09/2019 1 1 Encounter Details Date Type Department Care Team Description 02/11/2018 Telemedicine Department of General Edd Moeller eamargaritathetic Medical Exam (Primary Dx); Surgery in Jason Rivera D.O. Gallstone With Common Bile Duct [place] [address] [place] [address] [place], [place] [phone] [phone] (Work) [phone] Social History Tobacco Use Types Packs/Day Years [...] How often do you attend gnosticism or tenriism More than 4 time s per year 07/09/2020 services? Do you belong to any clubs or organizations No 04/19/2019 such as gnosticism groups, unions, fraPressy or athletic groups, or school groups? How [...] - 02/11/2018 10:00 AM CDT Surgical Nurse Hearing Care Professional Skin Alert Assessment: Complete this section only [...] lying flat? no Do you have any tenriism or other objection to having a blood transfusion? no Teaching: Preoperative education was done with (x) patient (_) parent (_) other. _ It was confirmed the patient/family member had received the following preoperative education sheets:Checklist For Surgical Patients ([id number]),???Surgical Site Infections ([id number]), Speak Up: Antibiotics ([id number]), ???Smoke Free, Advice for patients and visitors?? ([id number]), ???Your Guide to Pain Management ([id number]), Managing Your Pain After Surgery ([id number]) with the ???Healing Arts?? pamphlet ([id number]), and ???Appointments Required Before Your Surgery?? ([facility] [id number]). These were reviewed in detail. Additional Pamphlets also reviewed: (_)?? Parental Presence in the Operating Room?? ([facility]:Order Sets/Surgery/Home Instructions/Tonsillectomy Teaching Checklist/PE Tubes Teaching [...] appointments: 1st po with surgeon or physician preschool teacher's assistant: (x) made (_)TBD (_)Audiology appointment (PE tubes), [...] documented as of this encounter Care Teams Pole Peeling Machine Operator Relationship Specialty Start Date End Date Blaire Bundy P.A.-C. PCP - General 02/04/17 04/26/19 documented as of this encounter
--- OUTSIDE RECORDS SUMMARY | 2022-07-03 10:37 | XMS_ITS | Encounter Summary ---
:1985 Author Organization [facility] Address [address] [place] [address] Care Team Providers Name Role Phone Blaire Bundy P.A.-C. Primary Care Provider Encounter Details Date Type Department Care Team Description 11/12/2017 Hospital Encounter HX NO MAPPING Nichole Lerma [address] [place], [place] [phone] Social History Tobacco Use [...] How often do you attend alevism or restorationism More than 4 time s [...] of this encounter Care Teams Assistant Professor Surgical Technology Relationship Specialty Start Date End Date Blaire Bundy P.A.-C. PCP - General 02/04/17 04/26/19 documented as of this encounter
--- OUTSIDE RECORDS SUMMARY | 2022-07-03 10:37 | XMS_ITS | Encounter Summary ---
:[address] [facility] Address [address] [place] [address] Care Team Providers Name Role Phone Blaire Bundy P.A.-C. Primary Care Provider [phone] Reason for Visit Reason Comments Other right big toe infection? Appointment Request (Routine) - Closed Specialty Diagnoses / Procedures Referred By Contact Refer red To Contact Family Medicine Referral ID Status Reason Start Date Expiration Date Visits Requ ested Visits Authorized [id number] Closed 11/22/2017 05/21/2018 1 1 Encounter Details Date Type Department Care Team Description 11/23/2017 Office Visit Department of Family Blaire Bundy Cell ulitis Toe Right Medicine, [facility] (Primary Dx) Clinic, in [address] [phone] [address] (Work) [phone] Social History Tobacco Use Types Packs/Day Years [...] How often do you attend taoist or church More than 4 time s [...] documented as of this encounter Care Teams Conduit Mechanic Relationship Specialty Start Date End Date Blaire Bundy P.A.-C. PCP - General 02/04/17 04/26/19 documented as of this encounter
--- OUTSIDE RECORDS SUMMARY | 2022-07-03 10:37 | XMS_ITS | Encounter Summary ---
:1985 Author Organization [facility] Address [address] [place] [address] Care Team Providers Name Role Phone Blaire Bundy P.A.-C. Primary Care Provider [phone] Reason for Visit Reason Comments Communication [facility] Hospital follow up Encounter Details Date Type Department Care Team Description 11/15/2017 Clinical Department of Suellen Beasley on ([facility] Communication Family Medicine, R, R.N[facility] Hospital follow up) [place] [address] Clinic, in [address] [address] [facility] [phone] [place], [place] (Work) [phone] Social History Tobacco Use [...] How often do you attend yarsanism or adventism More than 4 time s [...] to pay for the very basics like [employer] hat hard 07/09/2020 food, housing, medical care, [...] documented as of this encounter Care Teams Chlorine Plant Operator Relationship Specialty Start Date End Date Blaire Bundy P.A.-C. PCP - General 02/04/17 04/26/19 documented as of this encounter
--- OUTSIDE RECORDS SUMMARY | 2022-07-03 10:37 | XMS_ITS | Encounter Summary ---
:1985 Author Organization [facility] Address [address] [place] [address] Care Team Providers Name Role Phone Blaire Bundy P.A.-C. Primary Care Provider [phone] Reason for Visit Auth/Cert Specialty Diagnoses / Procedures Referred By Contact Refer red To Contact Diagnoses Gallstone With Common Bile Duct Stone Procedures UT LAPAROSCOPY CHOLECYST W CHOLNG LAPAROSCOPIC CHOLECYSTECTOMY WITH CHOLANGIOGRAM Referral ID Status Reason Start Date Expiration Date Visits Requ ested Visits Authorized [id number] 1 1 Encounter Details Date Type Department Care Team Description 03/03/2018 Surgery [facility] MAIN OR Jaquan Monahan LAPAROSCOPIC [address] MICHELLE P, D.O. CHOLECYSTECTOMY POSSIBLE [place], [place] [address] CHOLANGIOGRAM [address] [place] [address] Social History Tobacco Use Types [...] How often do you attend denominational or scientology More than 4 time s [...] through Care Everywhere.Home Care Following Gallbladder Surgery (Polish)documented in this encounter Medications at Time of [...] Role: * Jaquan Monahan D.O. - Primary Sand Temperer: Naye Stockton L.P.N. Anesthesia Type: General Pre-Operative [...] of these were recovered in the suction orthopedics pediatric physician. The gallbladder was placed in Endo-Catch bag [...] Name Type Priority Associated Diagnoses Order S [facility] General Surgery Outpatient Referral Routine Gallstone With [...] Value Ref Test Analysis Performed At [facility] Range Method Time Signature PATHOLOGY Patient Name: [facility] MR#: [id number] [facility] Submitting Physician: JAQUAN MONAHAN DO [id number] Specimen #[id number] Performing Lab: ??[facility] ? [address] [place] [address] Source: Gallbladder Clinical History/Pre-Op Gallstone with common [...] trabeculated. ??The mucosal wall measures 0.2 cm. ??Coding Team Lead sections are submitted in cassette A1. KG/ps ?? Diagnosis Gallbladder, cholecystectomy: CHOLELITHIASIS. Electronically Signed By USAMA MALDONADO MD - 03/04/2018 pjs/03/04/2018 Specimen (Source) Anatomical Collection Method Collection Time Re ceived Time Location / / Volume Laterality Tissue 03/03/2018 9:54 AM (Gallbladder) CDT Jaquan Monahan D.O. LAB SURG PATH ORDERABLES Performing Organization Address City/State/ZIP Code Phon e Number [facility] [place] [address] [place] [address] documented in this encounter Visit Diagnoses Diagnosis [...] (COMPLETED) 730 (Given - Provider: Perri Cooper RBrittaneyN.) 2.5 mg, nebulization, Once, On Bryanna 03/03/18 at 0700, For 1 dose, Pre-Op ciprofloxacin in D5W IVPB 400 mg (CIPRO) (COMPLETED) 714 (New Bag - Provider: Perri Cooper RBrittaneyN.) 400 mg, intravenous, at 200 mL/hr, Admin ister over 60 Minutes, Once, On Bryanna 03/03/18 at 0715, For 1 dose, Intra-Op, Preoperatively within 2 hours prior to surgical incision. premix bag, Drug Monitoring P rogram: Pharmacist to adjust medication order based on comorbities and indication., Indications: Prophylaxis, surgical heparin (porcine) injection 5,000 Units (COMPLETED) 730 (Given - Provider: Perri Cooper RBrittaneyN.) 5,000 Units, subcutaneous, Once, On Bryanna 03/03/18 [...] 843 (Given - Provider: Rosalee Desir APRN, ASSEMBLER PRODUCT) 500 mg, intravenous, at 200 mL/hr, Admin [...] Provider: Melany Lira R.N.) 20 mL/hr, intravenous, Continuous, Starting on Bryanna [...] Lira RBrittaneyNBrittaney)1052 (Given - Provider: Melany Lira RBrittaneyN.)1054 (Given - Provider: Melany Lira RBrittaneyNBrittaney)1058 (Given - Provider: Melany Lira R.NBrittaney) 25 [...] - Provider: Priti Raines.Hung) As needed, Starting on Bryanna 03/03/18 at [...] 1033, Drug Monitoring Program: Pharmacist to a [facility] medication order based on comorbities and indication. documented in this encounter Additional Health Concerns Assessment Noted Time PHQ-9 Depression Total Score: 7 04/07/2017 9:39 AM CDT documented as of this encounter Care Teams Retail Merchandiser Relationship Specialty Start Date End Date Blaire Bundy P.A.-C. PCP - General 02/04/17 04/26/19 documented as of this encounter
--- OUTSIDE RECORDS SUMMARY | 2022-07-03 10:37 | XMS_ITS | Encounter Summary ---
:1985 Author Organization [facility] Address [address] [place] [address] Care Team Providers Name Role Phone Blaire Bundy P.A.-C. Primary Care Provider [phone] Reason for Referral Outpatient (Routine) - Closed Specialty Diagnoses / Procedures Referred By Contact Refer red To Contact Diagnoses Gallstone Edd Moeller D.O. [facility] Region Procedures [place] Fluoro Less Than 1 Hour CO FLUOROSCOPY EXAM UP TO 1 HR HC FLUOROSCOPY EXAM UP TO 1 HR CO FLUOROSCOPY EXAM UP TO 1 HR [address] [address] Referral ID Status Reason Start Date Expiration Date Visits Requ ested Visits Authorized [id number] Closed 03/03/2018 03/03/2019 1 1 Reason for Visit Auth/Cert Specialty Diagnoses / Procedures Referred By Contact Refer red To Contact Diagnoses Gallstone With Common Bile Duct Stone Procedures [place] LAPAROSCOPY CHOLECYST W CHOLNG LAPAROSCOPIC CHOLECYSTECTOMY WITH CHOLANGIOGRAM Referral ID Status Reason Start Date Expiration Date Visits Requ ested Visits Authorized [id number] 1 1 Encounter Details Date Type Department Care Team Description 03/03/2018 Hospital Encounter Department of Radiology Raphael Moeller, [place] [address] [place] [address] [address] [place] [address] [phone] (Wo rk) Social History Tobacco Use Types [...] How often do you attend christian or mandaen More than 4 time s [...] Time Received Time / Laterality Volume Narrative [id number] - 03/03/2018 10:01 AM CDT This exam does not require a radiologist review or interpretation. Please refer to the patient? s medical record on this date for clinical details. Edd Moeller D.O. IMSendy FLUOROSCOPY PROCEDURES Performing Organization Address City/State/ZIP Code Phon e Number [id number] NA documented in this encounter Visit Diagnoses Diagnosis Gallstone documented in this encounter Additional Health Concerns Assessment Noted Time PHQ-9 Depression Total Score: 7 04/07/2017 9:39 AM CDT documented as of this encounter Care Teams Life Sciences Teacher Relationship Specialty Start Date End Date Blaire Bundy P.A.-C. PCP - General 02/04/17 04/26/19 documented as of this encounter
--- OUTSIDE RECORDS SUMMARY | 2022-07-03 10:37 | XMS_ITS | Encounter Summary ---
:1985 Author Organization [facility] Address [address] [place] [address] Care Team Providers Name Role Phone Blaire Bundy P.A.-C. Primary Care Provider Reason for Referral Outpatient (Routine) - Closed Specialty Diagnoses / Procedures Referred By Contact Refer red To Contact Orthopedic Surgery Diagnoses Pain Toe Pain Toe Blaire Bundy [facility] Procedures ORS CONS FOOT POD P.A.-C. [address] [place], [place] [address] Referral ID Status Reason Start Date Expiration Date Visits Requ ested Visits Authorized [id number] Closed 02/18/2018 02/18/2019 1 1 Scheduling Instructions [...] Cholecystitis With Obstruction par review Edd Moeller [facility] Procedures RAY D.O. [address] [place] [address] Referral ID Status Reason Start Date Expiration Date Visits Requ ested Visits Authorized [id number] Closed 02/11/2018 02/11/2019 1 1 Encounter Details Date Type Department Care Team Description 02/18/2018 Office Visit Department of Family Blaire Bundy perative Exam (Primary Dx); MedicineFlorentino P.A.-C. 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; [place] [address] Elvis Swenson Gallstone With Common Bile Duct Stone; [place], [place] Anemia Pos themorrhagic Acute; [place] [address] [place] [address] [place] [address] [phone] [place], [place] (Work[place] [phone] Social History Tobacco Use [...] How often do you attend catholic or buddhism More than 4 time s [...] having a cholecystomy with Dr. Moeller in [place] on 03/03/2018. The patient notes she continues [...] Mass Index 50.0 To 59.9 Adult ([facility]) ??? Abuse Tobacco Smoking- Smokes infrequently/socially, 1-2 [...] RETROGRADE CHOLANGIOPANCREATOGRAPHY; Surgeon: Rubio Baker M.D.; Location: [facility] OR ??? ESOPHAGOGASTRODUODENOSCOPY N/A 11/11/2017 Procedure: ESOPHAGOGASTRODUODENOSCOPY; Surgeon: Rubio Baker M.D.; Location: [facility] GI LAB ??? LAPAROSCOPIC APPENDECTOMY N/A 09/08/2017 Procedure: LAPAROSCOPIC APPENDECTOMY; Surgeon: Edd Moeller D.O.; Location: [facility] OR ??? OTHER CONVERTED SHX (SEE COMMENT) [...] with Differential, Blood (02/18/2018 10:42 AM CDT) [facility] gist Method Time Signature Hemoglobin 11.3 (L) 11.6 - 02/18/2018 [facility] 15.0 g/dL 10:54 AM CDT [facility] Hematocrit 37.3 35.5 - 02/18/2018 [facility] 44.9 % 10:54 AM CDT [facility] Erythrocytes 4.95 3.92 - 02/18/2018 [facility] 5.13 10:54 AM CDT [facility] MCV 75.4 (L) 78.2 - 02/18/2018 [facility] 97.9 fL 10:54 AM CDT [facility] RBC Distrib Width 15.3 12.2 - 02/18/2018 [facility] 16.1 % 10:54 AM CDT [facility] Platelet Count 285 157 - 371 02/18/2018 [facility] x10(9)/L 10:54 AM CDT [facility] Leukocytes 7.0 3.4 - 9.6 02/18/2018 [facility] x10(9)/L 10:54 AM CDT [facility] Neutrophils 4.71 1.56 - 02/18/2018 [facility] 6.45 10:54 AM CDT [facility] Lymphocytes 1.76 0.95 - 02/18/2018 [facility] 3.07 10:54 AM CDT [facility] x10(9)/L [facility]- [employer] [facility] Monocytes 0.35 0.26 - 02/18/2018 [facility] 0.81 10:54 AM CDT [facility] x10(9[facility]L SYSTEMT[facility] [employer] LAB Eosinophils 0.18 0.03 - 02/18/2018 [facility] 0.48 10:54 AM CDT [facility] x10(9)/L SYSTEM- [employer] [facility] Basophils 0.03 0.01 - 02/18/2018 [facility] 0.08 10:54 AM CDT [facility] Specimen Anatomical Collection Method Collection Time Receive d Time (Source) Location / / Volume Laterality Blood (Blood, 02/18/2018 10:42 02/18/2018 Venous) AM CDT 10:46 AM CDT Edd Moeller D.O. LAB BLOOD ADD-ON Performing Organization Address City/State/ZIP Code Phon e Number [facility] [address] [address] [place] [facility] documented in this encounter Visit Diagnoses Diagnosis Preoperative Exam - Primary 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 Gallstone With Common Bile Duct Stone Anemia Posthemorrhagic Acute (Blood Loss Anemia) Pain Toe documented in this encounter Additional Health Concerns Assessment Noted Time PHQ-9 Depression Total Score: 7 04/07/2017 9:39 AM CDT documented as of this encounter Care Teams Archival Records Clerk Relationship Specialty Start Date End Date Blaire Bundy P.A.-C. PCP - General 02/04/17 04/26/19 documented as of this encounter
--- OUTSIDE RECORDS SUMMARY | 2022-07-03 10:37 | XMS_ITS | Encounter Summary ---
:1985 Author Organization [facility] Address [address] [place] [address] Care Team Providers Name Role Phone Blaire Bundy P.A.-C. Primary Care Provider Encounter Details Date Type Department Care Team Description 11/12/2017 - Hospital Encounter HX RST Cassidy Sandhu, 11/13/2017 Sera, M.S. [address] [place] [phone] (Wo rk) Social History Tobacco Use Types [...] often do you attend roman catholic or pentecostalism More than 4 time s [...] CBC with Differential (11/13/2017 7:23 AM CDT) [facility] Method Time Signature Hemoglobin 8.2 (L) 12.[address] [facility] 15.5 G/DL [facility] Hematocrit 26.0 (L) 34.9 - [facility] 44.5 % [facility] RBC Distrib 15.2 11.9 - [facility] Width 15.5 % [facility] Platelet Count 229 150 - 450 [facility] X10(9)/L [facility] Leukocytes 10.1 3.5 - [facility] 10.5 LABORATORIES - X10(9)/L [facility] Neutrophils 7.11 (H) 1.70 - [facility] 7.00 LABORATORIES - X10(9)/L [facility] Lymphocytes 2.38 0.90 - [facility] 2.90 LABORATORIES - X10(9)/L [facility] Monocytes 0.52 0.30 - [facility] 0.90 LABORATORIES - X10(9)/L [facility] Erythrocytes 2.93 (L) 3.90 - [facility] 5.03 LABORATORIES - X10(12)/L [facility] MCV 88.7 81.6 - [facility] 98.3 FL LABORATORIES - [facility] Eosinophils 0.03 (L) 0.05 - [facility] 0.50 LABORATORIES - X10(9)/L [facility] Basophils <0.03 0.00 - [facility] 0.30 LABORATORIES - X10(9)/L [facility] Specimen Anatomical Collection Method Collection Time Receive d Time (Source) Location / / Volume Laterality 11/13/2017 7:23 AM 8 7:23 CDT AM CDT Historical Provider LAB BLOOD ADD-ON Performing Organization Address City/State/ZIP Code Phon e Number [facility] LABORATORIES - [address] [place], [place] [address] [facility] (ABNORMAL) CBC with Differential (11/12/2017 7:48 PM CDT) [facility] gist Method Time Signature Hemoglobin 8.6 (L) 12.0 - [facility] 15.5 G/DL LABORATORIES - [facility] Hematocrit 26.2 (L) 34.9 - [facility] 44.5 % LAB[facility]ATORIES - [facility] Erythrocytes 3.04 (L) 3.90 - [facility] 5.03 LABORATORIES - X10(12)/L [facility] MCV 86.2 81.6 - [facility] 98.3 FL LABORATORIES - [facility] RBC Distrib 15.0 11.9 - [facility] Width 15.5 % LABORATORIES - [facility] Platelet Count 210 150 - 450 [facility] X10(9)/L LABORATORIES - [facility] Leukocytes 10.3 3.5 - [facility] 10.5 LABORATORIES - X10(9)/L [facility] Neutrophils 9.08 (H) 1.70 - [facility] 7.00 LABORATORIES - X10(9)/L [facility] Lymphocytes 1.03 0.90 - [facility] 2.90 LABORATORIES - X10(9)/L [facility] Monocytes 0.17 (L) 0.30 - [facility] 0.90 LABORATORIES - X10(9)/L [facility] Eosinophils <0.03 (L) 0.05 - [facility] 0.50 LABORATORIES - X10(9)/L [facility] Basophils <0.03 0.00 - [facility] 0.30 LABORATORIES - X10(9)/L [facility] Specimen Anatomical Collection Method Collection Time Receive d Time (Source) Location / / Volume Laterality 11/12/2017 7:48 PM 8 7:48 CDT PM CDT Venu Fernandez M.D., M.S. LAB BLOOD ADD-ON Performing Organization Address City/[facility]/ZIP Code Phon e Number [facility] LABORATORIES - [address] [place], [place] [address] [facility] ABORh, RBC (11/12/2017 11:55 AM CDT) P athologist Signature HXABO/RH BLOOD A NEG [facility] TYPE LABORATORIES - [facility] Specimen (Source) Anatomical Collection Method Collection Time Re ceived Time Location / / Volume Laterality 11/12/2017 11:55 AM CDT Historical Provider LAB BLOOD BANK TEST ORDERABL ES Performing Organization Address [facility] Code Phon e Number [facility] LABORATORIES - [address] [place], [place] [address] [facility] Antibody Screen, RBC (11/12/2017 11:55 AM CDT) Patholo gist Method Time Signature Antibody Negative [facility] Screen [facility] Specimen (Source) Anatomical Collection Method Collection Time Re ceived Time Location / / Volume Laterality 11/12/2017 11:55 AM CDT Historical Provider LAB BLOOD BANK TEST ORDERABL ES Performing Organization Address [facility] Code Phon e Number [facility] LABORATORIES - [address] [place], [place] [address] [facility] Calcium, Ionized (11/12/2017 11:42 AM CDT) P athologist Signature Calcium, 4.93 4.57 - [facility] Ionized, S 5.43 MG/DL LABORATORIES - [facility] Comment: ? ADDITIONAL INFORMATIO N ? This test has been modified from the man mackr's ? instructions. Its performance characteri stics were ? determined by [facility] in a manner co nsistent with ? CLIA requirements. This test has not bee n cleared or ? approved by the U.S. Food and Drug Admin istration. ? pH 7.42 7.35 - 7.48 [facility] LABORA TORIES - [facility] Specimen Anatomical Collection Method Collection Time Receive d Time (Source) Location / / Volume Laterality 11/12/2017 11:42 11/12/2017 AM CDT 11:42 AM CDT Venu Fernandez M.D., M.S. LAB BLOOD NON ADD-ON Performing Organization Address City/[facility] Code Phon e Number [facility] LABORATORIES - [address] [place] [phone] [facility] (ABNORMAL) ALT (Alanine Aminotransferase) (11/12/2017 11:42 AM CDT) Component Value Ref Test Analysis Performed At Patholo gist Range Method Time Signature Alanine 212 (H) 7 - 45 [facility] Aminotransferase U/L LABORATORIES - (ALT), S [facility] Specimen Anatomical Collection Method Collection Time Receive d Time (Source) Location / / Volume Laterality 11/12/2017 11:42 11/12/2017 AM CDT 11:42 AM CDT Venu Fernandez M.D., M.S. LAB BLOOD ADD-ON Performing Organization Address City/State/[facility] Code Phon e Number [facility] LABORATORIES - [address] [place] [phone] [facility] BMP (Basic Metabolic Panel) (11/12/2017 11:42 AM CDT) Analysis Performed At Patho logist Time Signature Sodium, P 141 135 - 145 [facility] MMOL/L LABORATORIES - [facility] Potassium, P 4.0 3.6 - 5.2 [facility] MMOL/L LABORATORIES - [facility] eGFR >60 >60 [facility] Non-Black/Afric ML/MIN/BSA LABORATORIES - [facility] eGFR >60 >60 [facility] Black/ ML/MIN/BSA LABORATORIES - [facility] BUN (Blood Urea 11 6 - 21 [facility] Nitrogen), S MG/DL LABORATORIES - [facility] HX Bicarbonate, 23 22 - 29 [facility] P/S MMOL/L LABORATORIES - [facility] Glucose, S 102 70 - 140 [facility] MG/DL LABORATORIES - [facility] Anion Gap 12 7 - 15 [facility] Chloride, S 106 98 - 107 [facility] MMOL/L LABORATORIES - [facility] Creatinine 0.7 0.6 - 1.1 [facility] MG/DL LABORATORIES - [facility] eGFR >60 >60 [facility] Non-Black/Afric ML/MIN/BSA LABORATORIES - an Bahraini [facility] eGFR-Black/Afri >60 >60 [facility] can Bahraini ML/MIN/BSA LABORATORIES - [facility] Creatinine 0.7 0.6 - 1.1 [facility] MG/DL LABORATORIES - [facility] Specimen Anatomical Collection Method Collection Time Receive d Time (Source) Location / / Volume Laterality 11/12/2017 11:42 11/12/2017 AM CDT 11:42 AM CDT Venu Fernandez M.D., M.S. LAB BLOOD ADD-ON Performing Organization Address City/[facility] Code Phon e Number [facility] LABORATORIES - [address] [place] [phone] [facility] (ABNORMAL) CBC without Differential (11/12/2017 11:42 AM CDT) Patholo gist Method Time Signature Hemoglobin 9.8 (L) 12.0 - [facility] 15.5 G/DL LABORATORIES - [facility] Hematocrit 29.8 (L) 34.9 - [facility] 44.5 % LABORATORIES - [facility] Erythrocytes 3.42 (L) 3.90 - [facility] 5.03 LABORATORIES - X10(12)/L [facility] MCV 87.1 81.6 - [facility] 98.3 FL [facility] - [facility] RBC Distrib 15.0 11.9 - [facility] Width 15.5 % [facility] Platelet Count 229 150 - 450 [facility] X10(9)/L [facility] - [facility] Leukocytes 13.2 (H) 3.5 - [facility] 10.5 LABORATORIES - X10(9)/L [facility] Specimen Anatomical Collection Method Collection Time Receive d Time (Source) Location / / Volume Laterality 11/12/2017 11:42 11/12/2017 AM CDT 11:42 AM CDT Venu Fernandez M.D., M.S. LAB BLOOD ADD-ON Performing Organization Address City/State/ZIP Code Phon e Number [facility] LABORATORIES - [address] [place] [phone] [facility] Phosphorus Inorganic (11/12/2017 11:42 AM CDT) Analysis Performed At Patho logist Time Signature Phosphorus 2.6 2.5 - 4.5 [facility] (Inorganic), S MG/DL [facility] Specimen Anatomical Collection Method Collection Time Receive d Time (Source) Location / / Volume Laterality 11/12/2017 11:42 11/12/2017 AM CDT 11:42 AM CDT Venu Fernandez M.D., M.S. LAB BLOOD ADD-ON Performing Organization Address City/[facility]/ZIP [facility] Phon e Number [facility] LABORATORIES - [address] [place] [phone] [facility] Bilirubin, Total (11/12/2017 11:42 AM CDT) P athologist Signature Bilirubin, 0.8 <=1.2 [facility] Total, S MG/DL [facility] Specimen Anatomical Collection Method Collection Time Receive d Time (Source) Location / / Volume Laterality 11/12/2017 11:42 11/12/2017 AM CDT 11:42 AM CDT Venu Fernandez M.D., M.S. LAB BLOOD ADD-ON Performing Organization Address City/[facility]/ZIP Code Phon e Number [facility] LABORATORIES - [address] [place] [address] [facility] Magnesium (11/12/2017 11:42 AM CDT) P athologist Signature Magnesium, S 1.9 1.7 - 2.3 [facility] MG/DL [facility] Specimen Anatomical Collection Method Collection Time Receive d Time (Source) Location / / Volume Laterality 11/12/2017 11:42 11/12/2017 AM CDT 11:42 AM CDT Venu Fernandez M.D., M.S. LAB BLOOD ADD-ON Performing Organization Address City/State/ZIP Code Phon e Number [facility] LABORATORIES - [address] [place] [phone] [facility] Bilirubin, Direct (11/12/2017 11:42 AM CDT) P athologist Signature Bilirubin, 0.2 0.0 - 0.3 [facility] Direct, S MG/DL [facility] Specimen Anatomical Collection Method Collection Time Receive d Time (Source) Location / / Volume Laterality 11/12/2017 11:42 11/12/2017 AM CDT 11:42 AM CDT Venu Fernandez M.D., M.S. LAB BLOOD ADD-ON Performing Organization Address City/[facility]/ZIP Code Phon e Number [facility] - [address] AST (Aspartate Aminotransferase) (11/12/2017 11:42 AM CDT) P athologist Signature AST, Total, S 22 8 - 43 U/L [facility] Specimen Anatomical Collection Method Collection Time Receive d Time (Source) Location / / Volume Laterality 11/12/2017 11:42 11/12/2017 AM CDT 11:42 AM CDT Venu Fernandez M.D., M.S. LAB BLOOD ADD-ON Performing Organization Address City/[facility] Code Phon e Number [facility] - [address] [place] [address] [facility] Alkaline Phosphatase (11/12/2017 11:42 AM CDT) athologist Signature Alkaline 92 37 - 98 [facility] Phosphatase, S U/L [facility] Specimen Anatomical Collection Method Collection Time Receive d Time (Source) Location / / Volume Laterality 11/12/2017 11:42 11/12/2017 AM CDT 11:42 AM CDT Venu Fernandez M.D., M.S. LAB BLOOD ADD-ON Performing Organization Address City/[facility] Phon e Number [facility] - [address] [place] [address] documented in this encounter Visit Diagnoses Not on filedocumented in this encounter Additional Health Concerns Assessment Noted Time PHQ-9 Depression Total Score: 7 04/07/2017 9:39 AM CDT documented as of this encounter Care Teams Search Developer Relationship Specialty Start Date End Date Blaire Bundy P.A.-C. PCP - General 02/04/17 04/26/19 documented as of this encounter
--- OUTSIDE RECORDS SUMMARY | 2022-07-03 10:37 | XMS_ITS | Encounter Summary ---
:1985 Author Organization [facility] Address [address] [place] [address] Care Team Providers Name Role Phone Blaire Bundy P.A.-C. Primary Care Provider Reason for Referral Outpatient (Routine) - Closed Specialty Diagnoses / Procedures Referred By Contact Refer red To Contact General Surgery Diagnoses Gallstone With Common Bile Duct Stone Blaire Bundy [facility] Alicia BuckleyABrittaney-CBrittaney [address] [place], [place] [address] Referral ID Status Reason Start Date Expiration Date Visits V isits Requested Authorized [id number] Closed Specialty 11/19/2017 05/18/2018 1 1 Services Required Reason for Visit Reason Comments Post Hospital Follow-up Patient discharged from [place] on 11/13/17. 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 Patient is complaining of feeling tired and short of breath Encounter Details Date Type Department Care Team Description 11/19/2017 Office Visit Department of Family Blaire Bundy (Primary Dx); Medicine, Jose Knox Hypovolemic Shock (HCC); Clinic, in [address] Gallstone With Common Bile Duct Stone; [place], [place] Counseling Control [address] [place] [address] [place], [place] [phone] (Work) [phone] Social History Tobacco Use Types Packs/Day Years [...] How often do you attend holiness or anglican More than 4 time s [...] of Post Hospital Follow-up (Patient discharged from [place] on 11/13/17. Was in for Upper GI [...] duodenal ulcer. She was then transferred from [facility] to [facility] for further treatment. In [place] the patient had another EGD which showed [...] Name Type Priority Associated Diagnoses Order S [facility] General Surgery - Outpatient Referral Routine [...] CBC with Differential (11/19/2017 11:35 AM CDT) [facility] gist Method Time Signature Hemoglobin 8.6 (L) 11.6 - 11/19/2017 [facility] 15.0 g/dL 11:58 AM [facility] Hematocrit 27.7 (L) 35.5 - 11/19/2017 [facility] 44.9 % 11:58 AM T [facility] Erythrocytes 3.10 (L) 3.92 - 11/19/2017 [facility] 5.13 11:58 AM T [facility] x10(12)/L [facility] MCV 89.4 78.2 - 11/19/2017 [facility] 97.9 fL 11:58 AM T [facility] RBC Distrib Width 14.9 12.2 - 11/19/2017 [facility] 16.1 % 11:58 AM T [facility] Platelet Count 355 157 - 371 11/19/2017 [facility] x10(9)/L 11:58 AM T [facility] Leukocytes 5.6 3.4 - 9.6 11/19/2017 [facility] x10(9)/L 11:58 AM [facility] Neutrophils 2.80 1.56 - 11/19/2017 [facility] 6.45 11:58 AM CDT HEALTH x10(9)/L [facility] [place] [facility] Lymphocytes 2.17 0.95 - 11/19/2017 [facility] 3.07 11:58 AM CDT HEALTH x10(9)/L [facility] [place] [facility] Monocytes 0.44 0.26 - 11/19/2017 [facility] 0.81 11:58 AM CDT HEALTH x10(9)/L [facility] [place] [facility] Eosinophils 0.22 0.03 - 11/19/2017 [facility] 0.48 11:58 AM CDT HEALTH x10(9)/L [facility] [place] [facility] Basophils 0.01 0.01 - 11/19/2017 [facility] 0.08 11:58 AM CDT HEALTH x10(9)/L [facility] [place] [facility] Specimen Anatomical Collection Method Collection Time Receive d Time (Source) Location / / Volume Laterality Blood (Blood, 11/19/2017 11:35 11/19/2017 Venous) AM CDT 11:50 AM CDT Blaire Bundy P.A.-C. LAB BLOOD ADD-ON Performing Organization Address City/State/ZIP Code Phon e Number [facility]- [id number] [place] [id number] [place] [address] LAB documented in this encounter Visit Diagnoses Diagnosis Melena - Primary Hypovolemic Shock (HCC) Gallstone With Common Bile Duct Stone Counseling Control documented in this encounter Additional Health Concerns Assessment Noted Time PHQ-9 Depression Total Score: 7 04/07/2017 9:39 AM CDT documented as of this encounter Care Teams Program Supervisor Relationship Specialty Start Date End Date Blaire Bundy P.A.-C. PCP - General 02/04/17 04/26/19 documented as of this encounter
--- OUTSIDE RECORDS SUMMARY | 2022-07-03 10:37 | XMS_ITS | Encounter Summary ---
:1985 Author Organization [facility] Address [address] [place] [address] Care Team Providers Name Role Phone Blaire [...] Diagnoses Pain Toe Pain Toe Blaire Bundy, [facility] Procedures ORS CONS FOOT POD P.A.-C. [address] [place], [place] [address] Referral ID Status Reason Start Date Expiration Date Visits Requ ested Visits Authorized [id number] Closed 02/18/2018 02/18/2019 1 1 Encounter Details Date Type Department Care Team Description 03/14/2018 Comprehensive Visit Department of Riccardo Cottrell, Ingrown Nail (Primary Dx); Orthopedic Surgery Mickey Nuñez Pain Toe; in [place], [facility] [address] FABIAN Onychomycosis; [place], [place] High Risk Medication [address] [place] [phone] [place], [place] [phone] (Work) [phone] Social History Tobacco Use Types Packs/Day Years [...] How often do you attend worship or adventism More than 4 time s [...] Hepatic Function Panel (03/14/2018 10:04 AM CDT) [facility] Method Time Signature Bilirubin, Total, S 0.9 <=1.2 03/14/2018 [facility] mg/dL 10:53 AM [facility] Bilirubin, Direct, S 0.2 0.0 - 0.3 03/14/2018 [facility] mg/dL 10:53 AM [facility] Aspartate 18 8 - 43 03/14/[address] [facility] Aminotransferase U/L 10:53 AM CDT [facility]ALTH (AST), S [facility] Alanine 15 7 - 45 03/14/[address] [facility] Aminotransferase U/L 10:53 AM CDT HEALTH (ALT), S [facility] Alkaline 69 37 - 98 03/14/[address] [facility] Phosphatase, S U/L 10:53 AM CDT [facility] Albumin, S 3.5 3.5 - 5.0 03/14/[address] [facility] g/dL 10:53 AM CDT [facility] Protein, Total, S 6.2 (L) 6.3 - 7.9 03/14/[address] [facility] g/dL 10:53 AM CDT [facility] LAB Specimen Anatomical Collection Method Collection Time Receive d Time (Source) Location / / Volume Laterality Blood (Blood, 03/14/2018 10:04 03/14/2018 Venous) AM CDT 10:09 AM CDT Gloria Johnsno D.P.M. LAB BLOOD ADD-ON Performing Organization Address City/State/[facility] Code Phon e Number [facility]- [id number] [place] [id number] [place] LAB documented in this encounter Visit Diagnoses Diagnosis Ingrown Nail - Primary Pain Toe Onychomycosis High Risk Medication documented in this encounter Additional Health Concerns Assessment Noted Time PHQ-9 Depression Total Score: 7 04/07/2017 9:39 AM CDT documented as of this encounter Care Teams Vp Analysis Relationship Specialty Start Date End Date Blaire Bundy P.A.-C. PCP - General 02/04/17 04/26/19 documented as of this encounter
--- OUTSIDE RECORDS SUMMARY | 2022-07-03 10:37 | XMS_ITS | Encounter Summary ---
:1985 Author Organization [facility] Address [address] [place] [address] Care Team Providers Name Role Phone Blaire Bundy P.A.-C. Primary Care Provider [phone] Reason for Referral Outpatient (Routine) - Closed Specialty Diagnoses / Procedures Referred By Contact Refer red To Contact Diagnoses Gallstone With Common Bile Duct Stone Edd Moeller D.O. [facility] [address] [address] Referral ID Status Reason Start Date Expiration Date Visits Requ ested Visits Authorized [id number] Closed 02/09/2018 02/09/2019 1 1 Reason for Visit Reason Comments Cholelithiasis Outpatient (Routine) - Closed Specialty Diagnoses / Procedures Referred By Contact Refer red To Contact General Surgery Diagnoses Gallstone With Common Bile Duct Stone Blaire Bundy [facility] NEHEMIAH doyle P.A.-C. [address] [place], [place] [address] Referral ID Status Reason Start Date Expiration Date Visits V isits Requested Authorized [id number] Closed Specialty 11/19/2017 05/18/2018 1 1 Services Required Encounter Details Date Type Department Care Team Description 02/09/2018 Comprehensive Visit Department of Juan Moeller Posthemorrhagic Acute (Primary Dx); General Surgery in Edd Gomez, Gallstone With Common Bile Duct Stone Marko Maxwell D.O. [address] [facility] [address] MARKO MAXWELL [place] [id number] [phone] Social History Tobacco Use Types Packs/Day Years [...] How often do you attend bahai or advent More than 4 time s [...] documented in this encounter Consult Notes Edd Moellre D.O. - 02/09/2018 12:00 AM CDT SUBJECTIVE [...] She denies alcohol use. She works at [employer] in [employer] [place]. OBJECTIVE PHYSICAL EXAMINATION General: Ms. Cooley is [...] scheduled in the near future. Job ID: [id number] documented in this encounter Plan of Treatment Scheduled Procedures Name Priority Associated Diagnoses Date/Time COLONOSCOPY Diarrhea Scheduled Referrals Name Type Priority Associated Order Schedule Diagnoses Pre Operative Outpatient Referral Routine Gallstone With Expec pipe: Evaluation RAY nurse Common Bile Duct consult (clinic) Stone (Approximat e), Expires: 02/09/2021 documented as of this encounter Results (ABNORMAL) CBC with Differential, Blood (02/18/2018 10:42 AM CDT) [facility] Method Time Signature Hemoglobin 11.3 (L) 11.6 - 02/18/2018 [facility] 15.0 g/dL 10:54 AM T [facility] Hematocrit 37.3 35.5 - 02/18/2018 [facility] 44.9 % 10:54 AM T [facility] Erythrocytes 4.95 3.92 - 02/18/2018 [facility] 5.13 10:54 AM T [facility] x10(12)/L [facility] MCV 75.4 (L) 78.2 - 02/18/2018 [facility] 97.9 fL 10:54 AM [facility] RBC Distrib Width 15.3 12.2 - 02/18/2018 [facility] 16.1 % 10:54 AM T [facility] Platelet Count 285 157 - 371 02/18/2018 [facility] x10(9)/L 10:[address] [facility] Leukocytes 7.0 3.4 - 9.6 02/18/2018 [facility] x10(9)/L 10:[address] [facility] Neutrophils 4.71 1.56 - 02/18/2018 [facility] 6.45 10:54 AM CDT [facility] x10(9)/L [facility] [place] [facility] Lymphocytes 1.76 0.95 - 02/18/2018 [facility] 3.07 10:54 AM CDT [facility](9[facility] Monocytes 0.35 0.26 - 02/18/2018 [facility] 0.81 10:54 AM CDT [facility] x[facility](9)/[facility] Eosinophils 0.18 0.03 - 02/18/2018 [facility] 0.48 10:54 AM CDT [facility] x[facility](9)/[facility] Basophils 0.03 0.01 - 02/18/2018 [facility] 0.08 10:54 AM CDT [facility] x[facility](9[facility] Specimen Anatomical Collection Method Collection Time Receive d Time (Source) Location / / Volume Laterality Blood (Blood, 02/18/2018 10:42 02/18/2018 Venous) AM CDT 10:46 AM CDT Edd Moeller D.O. LAB BLOOD ADD-ON Performing Organization Address City/State/[facility] Code Phon e Number [facility]- [address] [place] [address] LAB documented in this encounter Visit Diagnoses Diagnosis Anemia Posthemorrhagic Acute (Blood Loss Anemia) - Primary Gallstone With Common Bile Duct Stone documented in this encounter Additional Health Concerns Assessment Noted Time PHQ-9 Depression Total Score: 7 04/07/2017 9:39 AM CDT documented as of this encounter Care Teams Structural Engineering Technician Relationship Specialty Start Date End Date Blaire Bundy P.A.-C. PCP - General 02/04/17 04/26/19 documented as of this encounter
--- OUTSIDE RECORDS SUMMARY | 2022-07-03 10:37 | XMS_ITS | Encounter Summary ---
:1985 Author Organization [facility] Address [address] [place] [address] Care Team Providers Name Role Phone Blaire [...] documented as of this encounter Care Teams Snaker Tractor Driver Relationship Specialty Start Date End Date Blaire Bundy PGladys. PCP - General 02/04/17 04/26/19 documented as of this encounter
--- OUTSIDE RECORDS SUMMARY | 2022-07-03 10:38 | XMS_ITS | Encounter Summary ---
:1985 Author Organization [facility] Address [address] [place] [address] Care Team Providers Name Role Phone Blaire Bundy P.A.-C. 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 [address] [address] [facility] [phone] [place] [phone] Anesthesia Record Procedure Summary Procedure Name Responsible [...] h andoff to the receiving staff during [facility] ch we 1. Identified the patient 2. [...] by and henok; Antionette Cooper CRT, R.N. [facility] WND ADH NEONAT 2X3.75 d, Schedul [...] How often do you attend advent or temple More than 4 time s [...] Procedure Summary Date: 11/08/17 Room / Location: [address] 01 140 / [facility] OR Anesthesia Start: 1544 Anesthesia Stop: [...] event: no complications Anesthesia Preprocedure Evaluation - Neto Monroy APRN, CRNA, D.N.P. - 11/08/2017 12:46 [...] patient / legal guardian, or through an nuclear monitoring technician; patient evaluated and approved for anesthesia / [...] grade 1 ETT location: oral VL device: storFired Up Christian Wear CMAC Storz CMAC blade size: D - [...] documented as of this encounter Care Teams Clinical Data Analyst Relationship Specialty Start Date End Date Blaire Bundy P.A.-C. PCP - General 02/04/17 04/26/19 documented as of this encounter
--- OUTSIDE RECORDS SUMMARY | 2022-07-03 10:38 | XMS_ITS | Encounter Summary ---
:1985 Author Organization [facility] Address [address] [place] [address] Care Team Providers Name Role Phone Blaire Bundy P.A.-C. 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 [facility] [address] [phone] Social History Tobacco Use Types Packs/Day Years [...] How often do you attend sabianist or alevism More than 4 time s [...] documented as of this encounter Care Teams Bander Relationship Specialty Start Date End Date Blaire Bundy P.A.-C. PCP - General 02/04/17 04/26/19 documented as of this encounter
--- OUTSIDE RECORDS SUMMARY | 2022-07-03 10:38 | XMS_ITS | Encounter Summary ---
:1985 Author Organization [facility] Address [address] [place] [address] Care Team Providers Name Role Phone Blaire Bundy P.A.-C. Primary Care Provider [phone] Reason for Visit Reason Comments Chest Pain Pain With Breathing Encounter Details Date Type Department Care Team Description 11/04/2017 Emergency [place] [facility] Berny Garcia M.D. [address] [place] [address] Pleurisy (Primary Dx) Department Erlin Garcia M.D. [address] [place] [address] [address] [place] [phone] Social History Tobacco Use Types Packs/Day [...] How often do you attend sabianism or zoroastrian More than 4 time s [...] Body Mass Index 57.62 09/08/2017 10:09 AM CLASSIFICATION INSPECTOR documented in this encounter Discharge Instructions AttachmentsThe following attachments cannot be sent through Care Everywhere. Pleurisy (Palestinian)documented in this encounter Medications at Time of Discharge Medication Sig Dispensed Refills Start Date End Date acetaminophen (for_TYLENOL) Take 1-2 tablets 0 500 mg tablet by mouth every 6 (six) hours as needed. docusate sodium (for_COLACE) Take 1 capsule by 0 06/24/2017 11/07/2017 100 mg capsule mouth 2 (two) times a day as needed. ibuprofen (for_ADVIL,MOTRIN) Take 3 tablets by 0 06/24/2017 11/07/2017 200 mg tablet mouth every 6 (six) hours as needed. sennosides (SENNA) 8.6 mg Take 2 tablets by 0 09/201611/07/2017 tablet mouth at bedtime as needed. ibuprofen (for_ADVIL,MOTRIN) Take 200 mg by 0 11/12/2017 200 mg tablet mouth as needed. methylPREDNISolone follow package 21 tablet 0 11/04/2017 (for_MEDROL DOSEPACK) 4 mg directions. tablet documented as of this encounter ED Notes [...] family history of her father having an GA in his 50s she is presenting now [...] as of Nov 04 1941 Pleurisy Berny Garcia M.D. 11/06/17 0706 Leonora Meadows R.N. - [...] Troponin T, S <0.01 <0.01 ng/mL 11/04/2017 [facility] 6:03 PM CDT [facility] Comment: Biotin has been identified by the doug saucedo as a potential interfering substance. ??Higher concentr ations of biotin may be found in multivitamins, hair/nail supple ments, and workout supplements. ??If the result does not [facility] clinical observations, repeat testing after patient refrains fr om the use of supplements for at least 12 hours. Specimen Anatomical Collection Method Collection Time Receive d Time (Source) Location / / Volume Laterality Blood (Blood, 11/04/2017 5:43 PM 11/05/19 18 5:43 Venous) CDT PM CDT Berny Garcia M.D. LAB BLOOD ADD-ON Performing Organization Address City/State/ZIP Code Phon e Number [facility] [address] [place] [address] [facility] (ABNORMAL) D-Dimer (11/04/2017 5:43 PM CDT) athologist Signature D-Dimer, P 2.06 (H) <0.50 11/04/2017 [facility] mcg/mL FEU 5:59 PM CDT [facility] Comment: ----ADDITIONAL INFORMATION---- Results of this [...] Organization Address City/State/ZIP Code Phon e Number [facility] [address] [place] [address] [facility] (ABNORMAL) CMP (Comprehensive Metabolic Panel) (11/04/2017 5:43 PM CDT) P athologist Signature Potassium, P 4.3 3.6 - 5.2 11/04/2017 [facility] mmol/L 6:03 PM [facility] Sodium, P 139 135 - 145 11/04/2017 [facility] mmol/L 6:03 PM [facility] Chloride, P 100 98 - 107 11/04/2017 [facility] mmol/L 6:03 PM [facility] Bicarbonate, P 26 22 - 29 11/04/2017 [facility] mmol/L 6:03 PM [facility] Anion Gap, P 13 7 - 15 11/04/2017 [facility] 6:03 PM [facility] BUN (Blood Urea 11 6 - 21 11/04/2017 [facility] Nitrogen), P mg/dL 6:03 PM [facility] Creatinine 0.69 0.59 - 11/04/2017 [facility] 1.04 mg/dL 6:03 PM [facility] eGFR-Black/Afri >90 >=60 11/04/2017 [facility] can Portuguese mL/min/BSA 6:03 PM [facility] Comment: ----ADDITIONAL INFORMATION---- Estimated GFR calculated using the 2009 CKD_EPI creatinine equation. eGFR Non-Black/ >90 >=60 mL/min/BSA 11/04/2017 6:03 PM [facility] Portuguese [facility] Comment: ----ADDITIONAL INFORMATION---- Estimated GFR calculated using the 2009 CKD_EPI creatinine equation. Calcium, Total, P 9.6 8.9 - 10.1 11/04/2017 6:03 PM [facility] mg/dL [facility] Glucose, P 98 70 - 140 mg/dL 11/04/2017 6:03 PM [facility] Protein, Total, P 7.5 6.3 - 7.9 g/dL 11/04/2017 6:03 P M [facility] Albumin, P 3.9 3.5 - 5.0 g/dL 11/04/2017 6:03 PM [facility] Aspartate 1084 (H) 8 - 43 U/L 11/04/2017 6[facility]23 [facility] ([facility] P [facility] Alkaline Phosphatase, P 167 (H) 37 - 98 U/L 11/04/2017 6:0 3 PM [facility] Alanine Aminotransferase 1350 (H) 7 - 45 U/L 11/04/2017 6:2 3 PM [facility] (ALT), [facility] Bilirubin, Total, P 2.8 (H) <=1.2 mg/dL 11/04/2017 6:03 PM [facility] Specimen Anatomical Collection Method Collection Time Receive d Time (Source) Location / / Volume Laterality Blood (Blood, 11/04/2017 5:43 PM 11/05/19 18 5:43 Venous) CDT PM CDT Berny Garcia M.D. LAB BLOOD ADD-ON Performing Organization Address City/State/ZIP Code Phon e Number [facility] [address] [place] [address] [facility] (ABNORMAL) CBC with Differential (11/04/2017 5:43 PM CDT) [facility] Method Time Signature Hemoglobin 13.5 11.6 - 11/04/2017 [facility] 15.0 g/dL 5:46 PM [facility] Hematocrit 41.5 35.5 - 11/04/2017 [facility] 44.9 % 5:46 PM [facility] Erythrocytes 5.08 3.92 - 11/04/2017 [facility] 5.13 5:46 PM CDT HEALTH x10(12)/L [facility] MCV 81.7 78.2 - 11/04/2017 [facility] 97.9 fL 5:46 PM CDT [facility] RBC Distrib Width 13.9 12.2 - 11/04/2017 [facility] 16.1 % 5:46 PM CDT [facility] Platelet Count 278 157 - 371 11/04/2017 [facility] x10(9)/L 5:46 PM CDT [facility] Leukocytes 4.8 3.4 - 9.6 11/04/2017 [facility] x10(9)/L 5:46 PM CDT [facility] Neutrophils 3.37 1.56 - 11/04/2017 [facility] 6.45 5:46 PM CDT HEALTH x10(9)/L [facility] Lymphocytes 1.11 0.95 - 11/04/2017 [facility] 3.07 5:46 PM CDT [facility]ALTH x10(9)/L [facility] Monocytes 0.23 (L) 0.26 - 11/04/2017 [facility] 0.81 5:46 PM CDT [facility] x10(9)/L [facility] [place] [facility] Eosinophils 0.07 0.03 - 11/04/2017 [facility] 0.48 5:46 PM CDT [facility]ALTH x10(9)/L [facility] Basophils 0.03 0.01 - 11/04/2017 [facility] 0.08 5:46 PM CDT [facility]ALTH x10(9)/L [facility] Specimen Anatomical Collection Method Collection Time Receive d Time (Source) Location / / Volume Laterality Blood (Blood, 11/04/2017 5:43 PM 11/05/19 18 5:43 Venous) CDT PM CDT Berny Garcia M.D. LAB BLOOD ADD-ON Performing Organization Address City/State/ZIP Code Phon e Number [facility] [address] [place] [address] [facility] DX Chest AP or PA [...] Signature Ventricular Rate 76 BPM MUSE ECG/Min MT Interval 158 ms MUSE QRSD Interval 82 ms MUSE QT Interval 358 ms MUSE QTC Interval 402 ms MUSE P Slick 47 degrees MUSE R Slick 38 degrees MUSE T Wave Slick 33 degrees MUSE Specimen Anatomical Collection Method [...] (for_TORADOL) (COMPLETED) 0000 (Given - Provider: Hoda Ponce R.N.) 30 mg, intravenous, Once, On Bryanna 11/04/17 at 1812, For 1 dose, Adult IV push rate: Over 15 seconds. Peds IV push rate: Over 1 minute. 60 mg dose only for IM, not recommended for IV., Drug Monitoring Prog bekah: Pharmacist to adjust medication order based on co morbities and indication. lidocaine viscous-antacid 1:1 suspension 45 mL (for_GI COCKTAIL) (COMPLETED) 172 (Given - Provider: Hoda Ponce R.N.) 45 mL, oral, Once, On Bryanna 11/04/17 at 1721, For 1 dose NaCl 0.9 % bolus 55 mL (COMPLETED) 182 (New Bag - Provider: Marlene Garcia(R))2043 (Stopped - Provider: Hoda Ponce R.N.) 55 mL, intravenous, Once, On Bryanna 11/04/17 at 1822, For 1 dose predniSONE tablet 40 mg (for_DELTASONE) (COMPLETED) 2042 (Given - Provider: Hoda Ponce R.N.) 40 mg, oral, Once, On Bryanna 11/04/17 at 2031, For 1 dose Continuous Medication Order 11/02/2017 11/03/2017 11/04/2017 NaCl 0.9% infusion 183 (New Bag - Provider: Hoda Ponce R.N.)2043 (Stopped - Provider: Hoda Ponce R.N.) 100 mL/hr, intravenous, Continuous, Star ting on Bryanna 11/04/17 at 1809, For Hydration PRN Medication Order 11/02/2017 11/03/2017 11/04/2017 iohexol 350 mg iodine/mL solution 125 mL (for_OMNIPAQUE) (COMPLE PRASHANT) 1854 (Given - Provider: Ruben GarciaTBrittaney(R)) 125 mL, intravenous, Once in imaging, co ntrast, Starting on Bryanna 11/04/17 at 1821, For 1 dose sodium chloride injection 10 mL 2008 (Given - Provider: Terri Plata, RubenTBrittaney(R)) 10 mL, intravenous, As needed, line care, Starting on Bryanna 8 at 1821 documented in this encounter Additional Health Concerns Assessment Noted Time PHQ-9 Depression Total Score: 7 04/07/2017 9:39 AM CDT documented as of this encounter Care Teams Car Body Inspector Relationship Specialty Start Date End Date Blaire Bundy P.A.-C. PCP - General 02/04/17 04/26/19 documented as of this encounter
--- OUTSIDE RECORDS SUMMARY | 2022-07-03 10:38 | XMS_ITS | Encounter Summary ---
:1985 Author Organization [facility] Address [address] [place] [address] Care Team Providers Name Role Phone Blaire Bundy P.A.-C. 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 [address] [place] [address] Radha (Primary Dx); 11/12/2017 Encounter Hospital, [place] Taryn Helm M.D. [address] [place] [address] Hypovolemic Shock (HCC); [facility] Third Floor [address] [place] [address] Social History Tobacco Use Types [...] How often do you attend denominational or orthodox More than 4 time s [...] Primary Care Providers: Blaire Thornton P.A.-C. (General) [address] [place] [phone] Primary Care Provider Primary Care Provider Admission Date: 11/11/2017 Discharge Date: 11/12/2017 PRINCIPAL DIAGNOSIS Melena SECONDARY DIAGNOSES Active Problems: Hypovolemic Shock (HCC) Morbid obesity Resolved Problems: * No resolved hospital problems. * Operative Procedures: Scheduled (Blank), Completed (Comp) or Canceled (Can) Case IDs Date Procedure Surgeon Location Status [id number] 11/11/17 ESOPHAGOGASTRODUODENOSCOPY Rubio Baker M.D. [facility] GI LAB Blank Past Medical History: Diagnosis Date ??? Sleep Apnea Past Surgical History: Procedure Laterality Date ??? ENDOSCOPIC RETROGRADE CHOLANGIOPANCREATOGRAPHY (ERCP) N/A 11/08/2017 Procedure: ENDOSCOPIC RETROGRADE CHOLANGIOPANCREATOGRAPHY; Surgeon: Rubio Baker M.D.; Location: [facility] OR ??? LAPAROSCOPIC APPENDECTOMY N/A 09/08/2017 Procedure: LAPAROSCOPIC APPENDECTOMY; Surgeon: Edd Moeller D.O.; Location: [facility] OR ??? OTHER CONVERTED SHX (SEE COMMENT) [...] 1/3 unit of blood. Coordinated care with [facility] in [place]. Patient will be transferred via ambulance to [...] own decisions. FOLLOW UP APPOINTMENTS: Transfer to [facility] TEST RESULTS PENDING AT DISCHARGE: None. ADMINISTRATIVE [...] bleeding and would like to transfer to [place]. Still gets winded with any movement. OBJECTIVE [...] ERCPist to treat this. Will transfer to [place] this morning. NPO. Discussed case with Dr. [...] RETROGRADE CHOLANGIOPANCREATOGRAPHY; Surgeon: Rubio Baker M.D.; Location: [facility] OR ??? LAPAROSCOPIC APPENDECTOMY N/A 09/08/2017 Procedure: LAPAROSCOPIC APPENDECTOMY; Surgeon: Edd Moeller D.O.; Location: [facility] OR ??? OTHER CONVERTED SHX (SEE COMMENT) [...] 3:51 PM CDTAssociated Order(s): UPPER GI ENDOSCOPY [facility] [place] [facility] Patient Name: Carol Cooley Procedure Date: [...] unstable, then will plan on transferring to [place] for further therapy. Findings: The esophagus was [...] RETROGRADE CHOLANGIOPANCREATOGRAPHY; Surgeon: Rubio Baker M.D.; Location: [facility] OR ??? LAPAROSCOPIC APPENDECTOMY N/A 09/08/2017 Procedure: LAPAROSCOPIC APPENDECTOMY; Surgeon: Edd Moeller D.O.; Location: [facility] OR ??? OTHER CONVERTED SHX (SEE COMMENT) [...] - 11/12/2017 9:26 AM CDT Transfer to [place] report given to Don Gabrielle Nguyen R.N. - 11/12/2017 9:22 AM CDT Goals: Clinical Goals for the Shift: reduce heart rate; improve hemoglobin level Identify possible barriers to meeting goals/advancing plan of care: none Stability of the patient: Moderately Stable - Low risk of patient condition declining or worsening End of Shift Summary: pt to transfer to [place] Marcus Mata R.N. 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 LAB BLOOD ADD-ON Performing Organization Address City/[facility]/ZIP Code Phon e Number [address] [place] [address] [facility] (ABNORMAL) Hemoglobin (11/12/2017 12:21 AM CDT) P athologist Signature Hemoglobin 8.9 (L) 11.6 - 15.0 11/12/2017 [facility] g/dL 12:24 AM CDT [facility] [employer] LAB Specimen Anatomical Collection Method Collection Time Receive d Time (Source) Location / / Volume Laterality Blood (Blood, 11/12/2017 12:21 11/12/2017 Venous) AM CDT 12:21 AM CDT Kendal Santacruz APRNN.P. LAB BLOOD ADD-ON Performing Organization Address City/State/ZIP Code Phon e Number [address] [place] [address] [facility] Transfuse Red Blood Cells (11/11/2017 10:52 PM CDT) Kaye Grimes APRN, C.N.P., M.S.N. BLOOD TRANSFUSION O RDERABLES Transfuse Red Blood Cells : , 1 Units (11/11/2017 10:52 PM CDT) Kaye Grimes APRN, C.N.P., M.S.N. BLOOD TRANSFUSION O RDERABLES (ABNORMAL) Hemoglobin (11/11/2017 6:15 PM CDT) athologist Signature Hemoglobin 8.7 (L) 11.6 - 15.0 11/11/2017 [facility] g/dL 6:21 PM CDT [facility] LAB Specimen Anatomical Collection Method Collection Time Receive d Time (Source) Location / / Volume Laterality Blood (Blood, 11/11/2017 6:15 PM 11/12/19 18 6:19 Venous) CDT PM CDT Kendal Santacruz APRNN.P. LAB BLOOD ADD-ON Performing Organization Address City/State/ZIP Code Phon e Number [facility] [address] [facility] Transfuse Red Blood Cells (11/11/2017 [...] 11/11/2017 3:5 1 PM CDT [facility] [place] [facility] Patient Name: Carol Cooley Procedure Date: [...] then will plan on transferrin g to [place] for further therapy. Findings: The esophagus was [...] Signature Prothrombin 9.4 8.8 - 11.9 11/11/2017 [facility] Time, P sec 12:58 PM CDT [facility] INR 0.9 0.9 - 1.2 11/11/2017 [facility] 12:58 PM CDT [facility] Comment: Standard [...] City/State/ZIP Code Phon e Number [facility] [place] [address] [facility] Lactate (11/11/2017 12:39 PM CDT) P athologist Signature Lactate, P 2.1 0.6 - 2.3 11/11/2017 [facility] mmol/L 12:59 PM CDT [facility] LAB Specimen Anatomical Collection Method Collection Time Receive d Time (Source) Location / / Volume Laterality Blood (Blood, 11/11/2017 12:39 11/11/2017 Venous) PM CDT 12:42 PM CDT Nuno Love M.D. LAB BLOOD NON ADD-ON Performing Organization Address City/State/ZIP Code Phon e Number [facility] [place] [address] [facility] documented in this encounter Visit [...] 45 (New Bag - Provider: Cammie Schuster RBrittaneyNBrittaney)1354 (Stopped - Provider: Cammie Schuster R.N.) 1,000 mL, intravenous, Once, On Bryanna 11/11/17 at 1253, For 1 dose ondansetron (PF) injection 4 mg (for_ZOFRAN) (COMPLETED) 0025 (Given - Provider: Marcus Mata R.N.) 4 mg, intravenous, Once, On Bryanna 11/11/17 at 2315, For 1 dose pantoprazole injection 40 mg (for_PROTONIX) (COMPLETED) 1327 (Given - Provider: Cammie Schuster RRoverto) 40 mg, intravenous, Once, On Bryanna 11/11/17 at 1309, For 1 dose, Administer IV push over 2 minutes. Add 10 mL NS to 40 mg vial for a final concentration of 4 mg/mL. pantoprazole injection 40 mg (for_PROTONIX) 1608 ([facility] Hold - Provider: Transfer Provider, Automatic - Reason: Patient not available)1735 ([facility] Unhold - Provider: Transfer Provider, Automatic)2031 (Given - Provider: Marcus Mata RRoverto) 0830 (Given - Provider: Gabrielle Nguyen RBrittaneyNBrittaney) 40 mg, intravenous, 2 times daily, First dose on Bryanna 11/11/17 at 2100, First dose now if not previously given Administer IV push over 2 minutes. Add 10 mL NS to 40 mg vial for a final concentration of 4 mg/mL. sodium chloride injection 3 mL 1608 (MAR Hold - Provider: Transfer Provider, Automatic - Reason: Patient not available)1735 ([facility] Unhold - Provider: Transfer Provider, Automatic)2033 (Given [...] Marcus Mata R.N.)0553 (Due) 125 mL/hr, intravenous, Continuous, Starting on Bryanna 11/11/17 at 1 253 PRN Medication Order 11/10/2017 11/11/2017 11/12/2017 EPINEPHrine injection (for_ADRENALIN) (COMPLETED) 1653 (Given - Provider: Melany Lira R.N. - Comment: injected submucousal to bleeding site) Code/trauma/sedation medication, Starting on Bryanna 11/11/17 at 1653 fentaNYL injection (for_SUBLIMAZE) (COMPLETED) 1618 (Given - Provider: Melany Lira RBrittaneyNBrittaney) intravenous, Code/trauma/sedation medication, Starting on Bryanna at 1618 lidocaine 2 % mucosal solution (for_XYLOCAINE) (COMPLETED) 1614 (Given - Provider: Melany Lira RBrittaneyN.) Code/trauma/sedation medication, Starting on Bryanna 11/11/17 at 1614 midazolam (PF) injection (for_VERSED) (COMPLETED) 1618 (Given - Provider: Melany Lira RBrittaneyN.)1623 (Given - Provider: Ruben AbdiN.)1626 (Given - Provider: Melany Lira R.N.) Code/trauma/sedation medication, Starting on Bryanna 18 at 1618 sodium chloride injection 10 mL 1254 (Gi pablo - Provider: Cammie Schuster RRoverto)1608 (MAR Hold - Provider: Transfer Provider, Automatic - Reason: Patient not available)1735 ([facility] Unhold - Provider: Transfer Provider, Automatic)2031 (Given - Provider: Marcus Mata RBrittaneyNBrittaney) 0830 (Given - Provider: Gabrielle Nguyen R.N.)0903 (Given - Provider: Gabrielle Nguyen R.N.) 10 mL, intravenous, As needed, line care , Starting on Bryanna 11/11/17 at 1230, Peripheral Intravenous Catheter and Rapid Infusion Catheter, prior to blood sampling, post blood transfusion or post blood sampling sodium chloride injection 3 mL 1608 ([facility] Hold - Provider: Transfer Provider, Automatic - Reason: Patient not available)1735 ([facility] Unhold - Provider: Transfer Provider, Automatic) 3 mL, intravenous, As needed, line care, Starting on Bryanna 11/11/17 at 1230, Prior to and following infusion and between multiple consecutive infusions: sodium chloride 0.9 % injection documented in this encounter Additional Health Concerns Assessment Noted Time PHQ-9 Depression Total Score: 7 04/07/2017 9:39 AM CDT documented as of this encounter Care Teams Linecasting Machine Keyboard Operator Relationship Specialty Start Date End Date Blaire Bundy P.A.-C. PCP - General 02/04/17 04/26/19 documented as of this encounter
--- OUTSIDE RECORDS SUMMARY | 2022-07-03 10:38 | XMS_ITS | Encounter Summary ---
:1985 Author Organization [facility] Address [address] [place] [address] Care Team Providers Name Role Phone Blaire Bundy P.A.-C. 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 [address] [phone] Social History Tobacco Use Types Packs/Day Years [...] How often do you attend muslim or congregational More than 4 time s [...] Primary Care Providers: Blaire Thornton P.A.-C. (General) [address] [place] [phone] Primary Care Provider Primary Care Provider Admission Date: 11/11/2017 Discharge Date: 11/12/2017 PRINCIPAL DIAGNOSIS Melena SECONDARY DIAGNOSES Active Problems: Hypovolemic Shock (HCC) Morbid obesity Resolved Problems: * No resolved hospital problems. * Operative Procedures: Scheduled (Blank), Completed (Comp) or Canceled (Can) Case IDs Date Procedure Surgeon Location Status [id number] 11/11/17 ESOPHAGOGASTRODUODENOSCOPY Rubio Baker M.D. [facility] GI LAB Blank Past Medical History: Diagnosis Date ??? Sleep Apnea Past Surgical History: Procedure Laterality Date ??? ENDOSCOPIC RETROGRADE CHOLANGIOPANCREATOGRAPHY (ERCP) N/A 11/08/2017 Procedure: ENDOSCOPIC RETROGRADE CHOLANGIOPANCREATOGRAPHY; Surgeon: Rubio Baker M.D.; Location: [facility] OR ??? LAPAROSCOPIC APPENDECTOMY N/A 09/08/2017 Procedure: LAPAROSCOPIC APPENDECTOMY; Surgeon: Edd Moeller D.O.; Location: [facility] OR ??? OTHER CONVERTED SHX (SEE [...] 1/3 unit of blood. Coordinated care with [facility] in [place]. Patient will be transferred via ambulance to [...] own decisions. FOLLOW UP APPOINTMENTS: Transfer to [facility] TEST RESULTS PENDING AT DISCHARGE: None. [...] bleeding and would like to transfer to [place]. Still gets winded with any movement. OBJECTIVE [...] ERCPist to treat this. Will transfer to [place] this morning. NPO. Discussed case with Dr. [...] RETROGRADE CHOLANGIOPANCREATOGRAPHY; Surgeon: Rubio Baker M.D.; Location: [facility] OR ??? LAPAROSCOPIC APPENDECTOMY N/A 09/08/2017 Procedure: LAPAROSCOPIC APPENDECTOMY; Surgeon: Edd Moeller D.O.; Location: [facility] OR ??? OTHER CONVERTED SHX (SEE [...] 3:51 PM CDTAssociated Order(s): UPPER GI ENDOSCOPY [facility] - [place] [facility] Patient Name: Carol Cooley Procedure Date: [...] specimens collected. Recommendation: - After discussing with [place], as she has achieved some hemostasis, will observe. - Continue Protonix 40 mg IV BID. - Minimal clear liquids are OK. - If she continues to significantly bleed, and certainly if she becomes unstable, then will plan on transferring to [place] for further therapy. Findings: The esophagus was [...] Body Mass Index 50.0 To 59.9 Adult ([facility]) ??? Abuse Tobacco Smoking ??? Migraine Headache [...] RETROGRADE CHOLANGIOPANCREATOGRAPHY; Surgeon: Rubio Baker M.D.; Location: [facility] OR ??? LAPAROSCOPIC APPENDECTOMY N/A 09/08/2017 Procedure: LAPAROSCOPIC APPENDECTOMY; Surgeon: Edd Moeller D.O.; Location: [facility] OR ??? OTHER CONVERTED SHX (SEE [...] - 11/12/2017 9:26 AM CDT Transfer to [place] report given to Don Gabrielle Nguyen R.N. - 11/12/2017 9:22 AM CDT Goals: Clinical Goals for the Shift: reduce heart rate; improve hemoglobin level Identify possible barriers to meeting goals/advancing plan of care: none Stability of the patient: Moderately Stable - Low risk of patient condition declining or worsening End of Shift Summary: pt to transfer to [place] Marcus Mata R.N. 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 LAB BLOOD ADD-ON Performing Organization Address City/State/ZIP Code Phon e Number [facility] [address] [place] [address] [facility] (ABNORMAL) Hemoglobin (11/12/2017 12:21 AM CDT) P athologist Signature Hemoglobin 8.9 (L) 11.6 - 15.0 11/12/2017 [facility] ER g/dL 12:24 AM CDT [facility] Specimen Anatomical Collection Method Collection Time Receive d Time (Source) Location / / Volume Laterality Blood (Blood, 11/12/2017 12:21 11/12/2017 Venous) AM CDT 12:21 AM CDT Kendal Santacruz APRNN.P. LAB BLOOD ADD-ON Performing Organization Address City/State/ZIP Code Phon e Number [facility] [address] [place] [address] [facility] Transfuse Red Blood Cells (11/11/2017 10:52 PM CDT) Kaye Grimes APRN, C.N.P., M.S.N. BLOOD TRANSFUSION O RDERABLES Transfuse Red Blood Cells : , 1 Units (11/11/2017 10:52 PM CDT) Kendal Boudreaux APRNNLebron., M.S.N. BLOOD TRANSFUSION O RDERABLES (ABNORMAL) Hemoglobin (11/11/2017 6:15 PM CDT) P athologist Signature Hemoglobin 8.7 (L) 11.6 - 15.0 11/11/2017 [facility] ER g/dL 6:21 PM CDT [facility] Specimen Anatomical Collection Method Collection Time Receive d Time (Source) Location / / Volume Laterality Blood (Blood, 11/11/2017 6:15 PM 11/12/19 18 6:19 Venous) CDT PM CDT Kendal Santacruz APRNNLebron. LAB BLOOD ADD-ON Performing Organization Address City/State/ZIP Code Phon e Number [facility] [address] [facility] [address] [facility] Transfuse Red Blood Cells (11/11/2017 [...] 11/11/2017 3:5 1 PM CDT [facility] [place] [facility] Patient Name: Carol Cooley Procedure Date: [...] to the pancreatic duct orifice. Discussed with [place], although they were not able to see the pictures. - No specimens collected. Recommendation: - After discussing with [place], as s he has achieved some hemostasis, will observe. - Continue Protonix 40 mg IV BID. - Minimal clear liquids are OK. - If she continues to significantly ble ed, and certainly if she becomes unstable, then will plan on transferrin g to [place] for further therapy. Findings: The esophagus was [...] Prothrombin 9.4 8.8 - 11.9 11/11/2017 [facility] ER Time, P sec 12:58 PM CDT [facility] INR 0.9 0.9 - 1.2 11/11/2017 [facility] ER 12:58 PM CDT [facility] Comment: Standard intensity warfarin therapeutic range: 2.0 to 3.0 High intensity warfarin therapeutic rang e: 2.5 to 3.5 Specimen Anatomical Collection Method Collection Time Receive d Time (Source) Location / / Volume Laterality Blood (Blood, 11/11/2017 12:39 11/11/2017 Venous) PM CDT 12:42 PM CDT Nuno Love M.D. LAB BLOOD ADD-ON Performing Organization Address City/State/ZIP Code Phon e Number [facility] [address], [place] [address] [facility] Lactate (11/11/2017 12:39 PM CDT) P athologist Signature Lactate, P 2.1 0.6 - 2.3 11/11/2017 [facility] ER mmol/L 12:59 PM CDT [facility] Specimen Anatomical Collection Method Collection Time Receive d Time (Source) Location / / Volume Laterality Blood (Blood, 11/11/2017 12:39 11/11/2017 Venous) PM CDT 12:42 PM CDT Nuno Love M.D. LAB BLOOD NON ADD-ON Performing Organization Address City/State/ZIP Code Phon e Number [facility] [address] [place] [address] [facility] documented in this encounter Visit Diagnoses [...] Cammie Schuster R.N.) 40 mg, intravenous, Once, On Bryanna 18 at 1309, For 1 dose, Administer IV push over 2 minutes. Add 10 mL NS to 40 mg vial for a final concentration of 4 mg/mL. pantoprazole injection 40 mg (for_PROTONIX) 1608 ([facility] Hold - Provider: Transfer Provider, Automatic - Reason: Patient not available)1735 ([facility] Unhold - Provider: Transfer Provider, Automatic)2031 (Given - Provider: Mracus Mata R.N.) 0830 (Given - Provider: Gabrielle Nguyen R.N.) 40 mg, intravenous, 2 times daily, First dose on Bryanna 18 at 2100, First dose now if not previously given Administer IV push over 2 minutes. Add 10 mL NS to 40 mg vial for a final concentration of 4 mg/mL. sodium chloride injection 3 mL 1608 ([facility] Hold - Provider: Transfer Provider, Automatic - Reason: Patient not available)1735 ([facility] Unhold - Provider: Transfer Provider, Automatic)2034 (Given - Provider: Marcus Mata R.N.) 0900 (Not Given - Provider: Gabrielle Nguyen R.N. - Reason: Other) 3 mL, intravenous, Every 12 hours schedu led, First dose on Bryanna 11/11/17 at 2100, Peripheral Intravenous Catheter and Rapid Infusion Catheter, when no infusion to maintain patency Continuous Medication Order 11/10/2017 11/11/2017 11/12/2017 NaCl 0.9% infusion 1321 (New Bag - Prov ider: Cammie Schuster RRoverto)1744 (New Bag - Provider: Todd Valadez R.N.) [...] Melany Lira R.N.) intravenous, Code/trauma/sedation medication, Starting on Bryanna at 1618 lidocaine 2 % mucosal solution (for_XYLOCAINE) (COMPLETED) 1614 (Given - Provider: Melany Lira R.N.) Code/trauma/sedation medication, Starting on Bryanna 11/11/17 at 1614 midazolam (PF) injection (for_VERSED) (COMPLETED) 1618 (Given - Provider: Melany Lira R.N.)1623 (Given - Provider: Melany Lira RMarcos.)1626 (Given - Provider: Ruben AbdiN.) Code/trauma/sedation medication, Starting on Bryanna 11/11/17 at 1618 sodium chloride injection 10 mL 1254 (Gi pablo - Provider: Cammie Schuster RBrittaneyN.)1608 ([facility] Hold - Provider: Transfer Provider, Automatic - Reason: Patient not available)1735 ([facility] Unhold - Provider: Transfer Provider, Automatic)2032 (Given - Provider: Marcus Mata RBrittaneyNBrittaney) 0830 (Given - Provider: Gabrielle Nguyen RBrittaneyNBrittaney)0903 (Given - Provider: Gabrielle Nguyen R.N.) 10 mL, intravenous, As needed, line care , Starting on Bryanna 11/11/17 at 1230, Peripheral Intravenous Catheter and Rapid Infusion Catheter, prior to blood sampling, post blood transfusion or post blood sampling sodium chloride injection 3 mL 1608 ([facility] Hold - Provider: Transfer Provider, Automatic - Reason: Patient not available)1735 ([facility] Unhold - Provider: Transfer Provider, Automatic) 3 mL, intravenous, As needed, line care, Starting on Bryanna 11/11/17 at 1230, Prior to and following infusion and between multiple consecutive infusions: sodium chloride 0.9 % injection documented in this encounter Additional Health Concerns Assessment Noted Time PHQ-9 Depression Total Score: 7 04/07/2017 9:39 AM CDT documented as of this encounter Care Teams Job Training Supervisor Relationship Specialty Start Date End Date Blaire Bundy P.A.-C. PCP - General 02/04/17 04/26/19 documented as of this encounter
--- OUTSIDE RECORDS SUMMARY | 2022-07-03 10:38 | XMS_ITS | Encounter Summary ---
:1985 Author Organization [facility] Address [address] [place] [address] Care Team Providers Name Role Phone Blaire Bundy P.A.-C. 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 [address] [place] [phone] [address] [phone] Anesthesia Record Procedure Summary Procedure Name Responsible Anesthesia Start Anesthesia Stop Anesthesiologist Time Time ESOPHAGOGASTRODUODENOSCOPY Alberto Hampton APRN, 11/11/17 1634 11/11/17 1655 COAL INSPECTOR Events Date Time Event Comment 11/11/2017 1634 An Start Machine/Equipmen t Checked Infection Precautions Foll owed Procedure/Site Verified NPO Sta tus Verified Supine Standard ASA Mon itors Applied 1637 Turnover to Proceduralist 1653 Turnover to ANE Staff 1653 Proc Fin 1655 an stop data 1655 An End I completed my h andoff to the receiving staff during [facility] we 1. Identified the patient [...] by Abdomen; and dermabond; Antionette Barnes R.N. [facility]-Background DRSG RESPIRATORY THERAPIST WND ADH NEONAT , Ryanu jonathan Automated [...] How often do you attend moravian or restorationist More than 4 time s [...] Summary Date: 11/11/17 Room / Location: [facility] 01 [facility] 1412 / [facility] GI LAB Anesthesia Start: 1634 Anesthesia Stop: [...] documented as of this encounter Care Teams Outsole Cutter Machine Relationship Specialty Start Date End Date Blaire Bundy P.A.-C. PCP - General 02/04/17 04/26/19 documented as of this encounter
--- OUTSIDE RECORDS SUMMARY | 2022-07-03 10:38 | XMS_ITS | Encounter Summary ---
:1985 Author Organization [facility] Address [address] [place] [address] Care Team Providers Name Role Phone Blaire Bundy P.A.-C. Primary Care Provider [phone] Reason for Visit Reason Comments Shortness of Breath pt was here Wed. and was dx with pleurisy and is not getting better. c/o SOB, heartburn, nausea and has white in her stool Encounter Details Date Type Department Care Team Description 11/07/2017 Emergency [place] [facility] Dimitri Car, Dil ated Common Bile Duct (Primary Dx); Department M.D. 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 - 11/07/2017 8:51 PM CDT YOU SHOULD NOT HAVE ANYTHING TO EAT OR DRINK AFTER 12 MIDNIGHT. YOU DO NEED A COMBAT INFORMATION CENTER OFFICER AFTER THE ERCP PLANNED FOR TOMORROW AFTERNOON TENTATIVELY. AttachmentsThe following attachments cannot be sent through Care Everywhere. About Your ERCP, (Endoscopic Retrograde Cholangiopancreatography) (Pashto) documented in this encounter Medications at Time [...] with hyperactivity disorder presents ambulatory to the [place] [facility] Department with her friend via private [...] a cholecystectomy done. History provided by: Patient seismic interpreter used: No REVIEW OF SYSTEMS Constitutional: [...] be NPO after midnight and have a route driver available to drive her home afternoon. [...] P athologist Signature HCG, <0.5 IU/L 11/07/2017 [facility] Quantitative, 7:25 PM CDT [facility] [place] [facility] Comment: Biotin has been identified by the doug cturer as a potential interfering substance. ??Higher concentr ations of biotin may be found in multivitamins, hair/nail supple ments, and workout supplements. ??If the result does not [facility] clinical observations, repeat testing after patient [...] City/State/ZIP Code Phon e Number [facility] [address] [place] [address] [facility] Lactate (11/07/2017 6:48 PM CDT) P athologist Signature Lactate, P 0.8 0.6 - 2.3 11/07/2017 [facility] mmol/L 7:08 PM CDT [facility] Specimen Anatomical Collection Method Collection Time Receive d Time (Source) Location / / Volume Laterality Blood (Blood, 11/07/2017 6:48 PM 11/08/19 6:51 Venous) CDT PM CDT iDmitri Car M.D. LAB BLOOD NON ADD-ON Performing Organization Address City/State/ZIP Code Phon e Number [facility] [place] [address] [facility] (ABNORMAL) Hepatic Function Panel (11/07/2017 6:48 PM CDT) [facility] Method Time Signature Bilirubin, Total, S 2.0 (H) <=1.2 11/07/2017 [facility] mg/dL 7:14 PM CDT [facility] Bilirubin, Direct, S 1.5 (H) 0.0 - 0.3 11/07/2017 [facility] mg/dL 7:14 PM CDT [facility] Aspartate 775 (H) 8 - 43 11/07/2017 [facility] Aminotransferase U/L 7:26 PM CDT [facility] ([facility] Alanine 1877 (H) 7 - 45 11/07/2017 [facility] Aminotransferase U/L 7:26 PM CDT [facility] (ALT), [facility] Alkaline 275 (H) 37 - 98 11/07/2017 [facility] Phosphatase, S U/L 7:14 PM CDT [facility] Albumin, S 4.0 3.5 - 5.0 11/07/2017 [facility] g/dL 7:14 PM CDT [facility] Protein, Total, S 7.1 6.3 - 7.9 11/07/2017 [facility] g/dL 7:14 PM T [facility] [place] [facility] Specimen Anatomical Collection Method Collection Time Receive d Time (Source) Location / / Volume Laterality Blood (Blood, 11/07/2017 6:48 PM 11/08/19 18 6:51 Venous) CDT PM CDT Dimitri Car M.D. LAB BLOOD ADD-ON Performing Organization Address City/State/ZIP Code Phon e Number [facility] [address] [place] [address], [place] [address] [facility] BMP (Basic Metabolic Panel) (11/07/2017 6:48 PM CDT) P athologist Signature Potassium, P 4.3 3.6 - 5.2 11/07/2017 [facility] mmol/L 7:11 PM T [facility] Sodium, P 139 135 - 145 11/07/2017 [facility] mmol/L 7:11 PM [facility] Chloride, P 100 98 - 107 11/07/2017 [facility] mmol/L 7:11 PM [facility] Bicarbonate, P 25 22 - 29 11/07/2017 [facility] mmol/L 7:11 PM [facility] Anion Gap, P 14 7 - 15 11/07/2017 [facility] 7:11 PM T [facility] BUN (Blood Urea 16 6 - 21 11/07/2017 [facility] Nitrogen), P mg/dL 7:11 PM [facility] Creatinine 0.76 0.59 - 11/07/2017 [facility] 1.04 mg/dL 7:11 PM [facility] eGFR-Black/Afri >90 >=60 11/07/2017 [facility] can Taiwanese mL/min/BSA 7:11 PM [facility] Comment: ----ADDITIONAL INFORMATION---- Estimated GFR calculated using the 2009 CKD_EPI creatinine equation. eGFR Non-Black/ >90 >=60 mL/min/BSA 11/07/2017 7:11 PM [facility] Taiwanese [facility] Comment: ----ADDITIONAL INFORMATION---- Estimated GFR calculated using the 2009 CKD_EPI creatinine equation. Calcium, Total, P 9.5 8.9 - 10.1 mg/dL 11/07/2017 7 :[address] [facility] Glucose, P 129 70 - 140 mg/dL 11/07/2017 7:11 PM CDT [facility] LAB Specimen Anatomical Collection Method Collection Time Receive d Time (Source) Location / / Volume Laterality Blood (Blood, 11/07/2017 6:48 PM 11/08/19 6:51 Venous) CDT PM CDT Dimitri Car M.D. LAB BLOOD ADD-ON Performing Organization Address City/State/ZIP Code Phon e Number [facility] [place] [address] [facility] Lipase (11/07/2017 6:48 PM CDT) athologist Signature Lipase, P 45 13 - 60 U/L 11/07/2017 [facility] 7:05 PM CDT [facility] Specimen Anatomical Collection Method Collection Time Receive d Time (Source) Location / / Volume Laterality Blood 11/07/2017 6:48 PM 8 6:51 CDT PM CDT Dimitri Car M.D. LAB BLOOD ADD-ON Performing Organization Address City/State/ZIP Code Phon e Number [facility] [place] [address] [facility] CBC with Differential (11/07/2017 6:48 PM CDT) athologist Signature Hemoglobin 13.5 11.6 - 11/07/2017 [facility] 15.0 g/dL 6:54 PM CDT [facility] Hematocrit 42.1 35.5 - 11/07/2017 [facility] 44.9 % 6:54 PM CDT [facility] Erythrocytes 4.97 3.92 - 11/07/2017 [facility] 5.13 6:54 PM CDT [facility] x10(12)/L [facility] [place] [facility] MCV 84.7 78.2 - 11/07/2017 [facility] 97.9 fL 6:54 PM CDT [facility] RBC Distrib Width 14.9 12.2 - 11/07/2017 [facility] 16.1 % 6:54 PM CDT [facility] Platelet Count 294 157 - 371 11/07/2017 [facility] x10(9)/L 6:54 PM CDT [facility] Leukocytes 7.6 3.4 - 9.6 11/07/2017 [facility] x10(9)/L 6:54 PM CDT [facility] Neutrophils 5.64 1.56 - 11/07/2017 [facility] 6.45 6:54 PM CDT [facility] x10(9)/[facility] Lymphocytes 1.33 0.95 - 11/07/2017 [facility] 3.07 6:54 PM CDT [facility] x10(9)/[facility] [place] [facility] Monocytes 0.50 0.26 - 11/07/2017 [facility] 0.81 6:54 PM CDT [facility] x10(9)/L [facility] [place] [facility] Eosinophils 0.04 0.03 - 11/07/2017 [facility] 0.48 6:54 PM CDT [facility] x10(9)/[facility] [place] [facility] Basophils 0.04 0.01 - 11/07/2017 [facility] 0.08 6:54 PM CDT [facility] x10(9)/[facility] Specimen Anatomical Collection Method Collection Time Receive d Time (Source) Location / / Volume Laterality Blood (Blood, 11/07/2017 6:48 PM 11/08/19 18 6:51 Venous) CDT PM CDT Dimitri Car M.D. LAB BLOOD ADD-ON Performing Organization Address City/State/ZIP Code Phon e Number [facility] [address] [facility] [address] [place] documented in this encounter Visit Diagnoses [...] Cammie Schuster R.N.) 3 mL, nebulization, Once, On Wed11/07/17 at 1840, For 1 dose NaCl 0.9 % bolus 93 mL 1910 (Due ) 93 mL, intravenous, Once, Wed11/07/17 at 1910, For 1 dose pantoprazole injection 40 mg (for_PROTONIX) (COMPLETED) 1852 (Given - Provider: Cammie Schuster R.N.) 40 mg, intravenous, Once, On 11/07/17 at [...] on 11/07/17 at 1909, For 1 dose ondansetron (PF) injection 4 mg (for_ZOFRAN) 1853 (Given - Provider: Cammie Schuster R.N.) 4 mg, intravenous, Every 20 min PRN, [place], vomiting, Starting on 11/07/17 at 1839, For 2 doses sodium chloride injection 10 mL 1853 (Given - Provider: Cammie Schuster R.N.) 10 mL, intravenous, As needed, line care , Starting on 11/07/17 at 1837, Peripheral Intravenous Catheter and Rapid Infusion Catheter, prior to blood sampling, post blood transfusion or post blood sampling sodium chloride injection 10 mL 10 mL, intravenous, As needed, line care, Starting on [place] 8 at 1909 sodium chloride injection 3 mL 3 mL, intravenous, As needed, line care, Starting on [place] 11/07/17 at 1837, Prior to and following infusion and between multiple consecutive infusions: sodium chloride 0.9 % injection documented in this encounter Additional Health Concerns Assessment Noted Time PHQ-9 Depression Total Score: 7 04/07/2017 9:39 AM CDT documented as of this encounter Care Teams Radio Disc Jockey Relationship Specialty Start Date End Date Blaire Bundy P.A.-C. PCP - General 02/04/17 04/26/19 documented as of this encounter
--- OUTSIDE RECORDS SUMMARY | 2022-07-03 10:38 | XMS_ITS | Encounter Summary ---
:1985 Author Organization [facility] Address [address] [place] [address] Care Team Providers Name Role Phone Blaire Bundy P.A.-C. Primary Care Provider [phone] Encounter Details Date Type Department Care Team Description 11/08/2017 Orders Only Department of Rubio Baker Calculus Of Bile Duct Gastroenterology in Marko Marcos M.D. Without Cholangitis [place], [place] [address] Or Cholecystitis With [address] [place], [place] Obstruction ([place] [phone] Dx) [phone] Social History Tobacco Use Types Packs/Day Years [...] How often do you attend gnosticist or holiness More than 4 time s [...] to pay for the very basics like [employer] hat hard 07/09/2020 food, housing, medical care, [...] documented as of this encounter Care Teams Dead Mail Checker Relationship Specialty Start Date End Date Blaire Bundy P.A.-C. PCP - General 02/04/17 04/26/19 documented as of this encounter
--- OUTSIDE RECORDS SUMMARY | 2022-07-03 10:38 | XMS_ITS | Encounter Summary ---
:1985 Author Organization [facility] Address [address] [place] [address] Care Team Providers Name Role Phone Blaire Bundy P.A.-C. Primary Care Provider [phone] Reason for Referral Outpatient (Routine) - Closed Specialty Diagnoses / Procedures Referred By Contact Refer red To Contact General Surgery Diagnoses Calculus Of Bile Duct Without Cholangitis Or Cholecystitis With Obstruction PAR REVIEW Rubio Baker [facility] [place] [facility] Procedures [place] [address] [place] [address] Referral ID Status Reason Start Date Expiration Date Visits V isits Requested Authorized [id number] Closed Specialty 11/08/2017 05/07/2018 1 1 Services Required Reason for Visit Auth/Cert Specialty Diagnoses / Procedures Referred By Contact Refer red To Contact Diagnoses 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 Without Cholangitis [place] RIVERA [address] [place] [address] [place] Rivera Obstruction [phone] Social History Tobacco Use Types Packs/Day [...] often do you attend oriental orthodox or scientology More than 4 time s [...] Everywhere. About Your ERCP, (Endoscopic Retrograde Cholangiopancreatography) (Lao) documented in this encounter Medications at Time [...] LAPAROSCOPIC APPENDECTOMY; Surgeon: Edd Moeller D.O.; Location: [facility] OR ??? OTHER CONVERTED SHX (SEE [...] Used ??? Alcohol use No Lives in [place], working at the [employer] there. Has two sons, the youngest 4 [...] - 11/08/2017 3:08 PM CDTAssociated Order(s): ERCP [facility] Patient Name: Carol Cooley Procedure Date: [...] anesthesia, benzocaine spray and indomethacin 100 mg HI Complications: No immediate complications. Estimated blood loss: [...] 1 : Perianal for CRE Swab Perianal [facility] SURVEILLANCE PCR Rubio Baker M.D. 11/08/2017 1539 Drains None Estimated Blood Loss No blood loss documented. Implants * No implants in log * Rubio Baker M.D. documented in this encounter Plan of Treatment Scheduled Procedures Name Priority Associated Diagnoses Date/Time COLONOSCOPY Diarrhea Scheduled Referrals Name Type Priority Associated Diagnoses Order [facility] General Surgery - Outpatient Referral Routine Calculus [...] Duct Without Cholangitis Or Cholecystitis With Obstruction [facility] SURVEILLANCE PCR Routine 11/08/2017 Calculus [...] Surveillance PCR Perianal (11/08/2017 3:39 PM CDT) [facility] gist Method Time Signature Specimen RECTAL SWAB 11/09/2017 [facility] source 1:40 PM CDT [facility] KPC PCR Negative Not 11/09/2017 [facility] Applicable 1:40 PM CDT [facility] NDM PCR Negative Not 11/09/2017 [facility] Applicable 1:40 PM CDT [facility] Comment: ----ADDITIONAL INFORMATION---- This test was developed and its performa nce characteristics determined by [facility] in a manner consistent with CLIA requirements. [...] Code Phon e Number [facility] - [address] [place], [place] [address] [facility] ERCP (11/08/2017 3:08 PM CDT) Specimen (Source) Anatomical Location Collection Method / Collectio n Time Received Time / Laterality Volume Narrative This result has an attachment that is no t available. Procedure Note Rubio Baker M.D. - 11/08/2017 3:0 8 PM CDT [facility] Patient Name: Carol Cooley Procedure Date: [...] benzocaine spray an d indomethacin 100 mg HI Complications: No immediate complication s. Estimated blood [...] Provider: Katarina Cruz R.N.) 200 mL/hr, intravenous, Continuous, Starting on Wed11/08/17 at 1 500, Pre-Op lactated ringers 1700 (Due) 100 mL/hr, intravenous, at 100 mL/hr, Continuous, Starting M 11/08/17 at 1700 PRN Medication Order 11/06/2017 11/07/2017 11/08/2017 benzocaine 20 % mouth spray (for_HURRICAINE/TOPEX) (CANCELED) 1535 (Given - Provider: Rubio Baker M.D.) As needed, Starting Wed11/08/17 at 1535, Intra-Op dexamethasone injection 4 mg [...] 6 hours PRN, na usea, vomiting, Starting Wed11/08/17 at 1646, For 48 hours, PACU (only), [...] line care, Starting on Wed11/08/17 at 1456, Pre- Op, Prior to and following infusion and between multiple consecutive infusions: sodium chloride 0.9 % injection documented in this encounter Additional Health Concerns Assessment Noted Time PHQ-9 Depression Total Score: 7 04/07/2017 9:39 AM CDT documented as of this encounter Care Teams Cell Phone Repair Technician Relationship Specialty Start Date End Date Blaire Bundy P.A.-C. PCP - General 02/04/17 04/26/19 documented as of this encounter
--- OUTSIDE RECORDS SUMMARY | 2022-07-03 10:38 | XMS_ITS | Encounter Summary ---
:1985 Author Organization [facility] Address [address] [place] [address] Care Team Providers Name Role Phone Blaire [...] How often do you attend presybeterian or bahai More than 4 time s [...] documented as of this encounter Care Teams People Greeter Relationship Specialty Start Date End Date Blaire Bundy PGladys. PCP - General 02/04/17 04/26/19 documented as of this encounter
--- OUTSIDE RECORDS SUMMARY | 2022-07-03 10:38 | XMS_ITS | Encounter Summary ---
:1985 Author Organization [facility] Address [address] [place] [address] Care Team Providers Name Role Phone Blaire [...] Type Department Care Team Description 11/08/2017 Surgery [facility] OR Rubio Baker ENDOSCOPIC RETROGRADE [address] Marcos M.D. CHOLANGIOPANCREATOGRAPHY [place], [place] [address] [address] [place], [place] [phone] [address] Social History Tobacco Use Types Packs/Day [...] How often do you attend muslim or jewish More than 4 time s [...] Everywhere. About Your ERCP, (Endoscopic Retrograde Cholangiopancreatography) (Kinyarwanda) documented in this encounter Medications at Time [...] LAPAROSCOPIC APPENDECTOMY; Surgeon: Edd Moeller D.O.; Location: [facility] OR ??? OTHER CONVERTED SHX [...] Used ??? Alcohol use No Lives in [employer], working at the [employer] there. Has two sons, the youngest 4 [...] - 11/08/2017 3:08 PM CDTAssociated Order(s): ERCP [facility] Patient Name: Carol Cooley Procedure Date: [...] 1 : Perianal for CRE Swab Perianal [facility] SURVEILLANCE PCR Rubio Baker M.D. 11/08/2017 1539 Drains None Estimated Blood Loss No blood loss documented. Implants * No implants in log * Rubio Baker M.D. documented in this encounter Plan of Treatment Scheduled Procedures Name Priority Associated Diagnoses Date/Time COLONOSCOPY Diarrhea Scheduled Referrals Name Type Priority Associated Diagnoses [facility] - Outpatient Referral Routine [...] Duct Without Cholangitis Or Cholecystitis With Obstruction [facility] SURVEILLANCE PCR Routine 11/08/2017 Calculus Of [...] olangiopancreatography. Total fluoroscopy time 1.4 minutes. Rubio Bkaer M.D. IMG FLUOROSCOPY PROCEDURES [facility] Surveillance PCR Perianal (11/08/2017 3:39 PM CDT) Patholo gist Method Time Signature Specimen RECTAL SWAB 11/09/2017 [facility] source 1:40 PM CDT [facility] PCR Negative Not 11/09/2017 [facility] Applicable 1:40 PM CDT [facility] - [facility] ND PCR Negative Not 11/09/2017 [facility] Applicable 1:40 PM CDT [facility] Comment: ----ADDITIONAL INFORMATION---- This test was developed and its performa nce characteristics determined by [facility] in a manner consistent with CLIA requirements. This test has not been cleared or approved by the [place] d and Drug Administration. Specimen (Source) Anatomical Collection Method Collection Time Re ceived Time Location / / Volume Laterality Swab (Perianal) 11/08/2017 3:39 PM CDT Rubio Baker M.D. LAB MICROBIOLOGY - GENERAL O RDERABLES Performing Organization Address City/State/ZIP Code Phon e Number [facility] - [address] [id number] [facility] ERCP (11/08/2017 3:08 PM CDT) Specimen (Source) Anatomical Location Collection Method / Collectio n Time Received Time / Laterality Volume Narrative This result has an attachment that is no t available. Procedure Note Rubio Baker M.D. - 11/08/2017 3:0 8 PM CDT [facility] Patient Name: Carol Cooley Procedure Date: [...] Provider: Rubio Baker M.D.) As needed, Starting on Wed11/08/17 at 1535, Intra-Op dexamethasone injection 4 mg (for_DECADRON) 4 mg, intravenous, Once as needed, nause a, vomiting, Starting Wed11/08/17 at 1646, For 1 dose, PACU (only), Give only if NOT given during the pre or intraoperative period. If ondansetron ordered, give dexamethasone with first dose of ondansetron. droperidol injection 0.625 mg (for_INAPSINE) 0.625 mg, intravenous, Every 6 hours PRN , nausea, vomiting, Starting Wed11/08/17 at 1646, For 48 [...] than 4, discontinue Fentanyl: give Hydromorphone, Starting Wed11/08/17 at 1646, PACU (only) HYDROmorphone injection 0.5 mg (for_DILAUDID) 0.5 mg, intravenous, Every 5 min PRN, mo derate pain or score 4-6 of 10, severe pain or score 7-10 of 10, Starting 11/08/17 at 1646, PACU (only), Up to maximum total dose of 2 mg indomethacin suppository (for_INDOCIN) (CANCELED) 1602 (Given - Provider: Vidhi Sorensen R.N.) As needed, Starting on Wed11/08/17 at 1602, Intra-Op ioversol 240 mg iodine/mL 50 mL in NaCl 0.9% 100 mL intravenous solution (CANCELED) 1604 (Given - Provid er: Rubio Baker M.D. - Comment: irrigated in common bile duct - not IV) As needed, Starting on Wed11/08/17 at 1604, Intra-Op ondansetron (PF) injection [...] documented as of this encounter Care Teams Slurry Plant Operator Relationship Specialty Start Date End Date Blaire Bundy P.A.-C. PCP - General 02/04/17 04/26/19 documented as of this encounter
--- OUTSIDE RECORDS SUMMARY | 2022-07-03 10:38 | XMS_ITS | Encounter Summary ---
:1985 Author Organization [facility] Address [address] [place] [address] Care Team Providers Name Role Phone Blaire Bundy P.A.-C. 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 [address] [place] [address] Pain Right Upper Quadrant (Primary Dx); General Surgery in [place] M.[place]. 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 female [...] RETROGRADE CHOLANGIOPANCREATOGRAPHY; Surgeon: Rubio Baker M.D.; Location: [facility] OR ??? ESOPHAGOGASTRODUODENOSCOPY N/A 11/11/2017 Procedure: ESOPHAGOGASTRODUODENOSCOPY; Surgeon: Rubio Baker M.D.; Location: [facility] GI LAB ??? LAPAROSCOPIC APPENDECTOMY N/A 09/08/2017 Procedure: LAPAROSCOPIC APPENDECTOMY; Surgeon: Edd Moeller D.O.; Location: [facility] OR ??? OTHER CONVERTED SHX (SEE COMMENT) [...] Type and screen (11/11/2017 12:30 PM CDT) [facility] gist Method Time Signature ABO Group A 11/11/2017 [facility] 1:05 PM CDT [facility] Rh Type NEG 11/11/2017 [facility] 1:05 PM CDT [facility] Antibody Screen NEG 11/11/2017 [facility] 1:16 PM CDT [facility] Type & Screen 11/14/2017 [facility] Expiration 23:[facility] ELXM Eligible Y 11/11/2017 [facility] 1:16 PM CDT [facility] Specimen Anatomical Collection Method Collection Time Receive d Time (Source) Location / / Volume Laterality Blood (Blood, 11/11/2017 12:30 11/11/2017 Venous) PM CDT 12:41 PM CDT Seng Reyna M.D. LAB BLOOD BANK TEST ORDERABL ES Performing Organization Address City/State/ZIP Code Phon e Number [facility] [address] [facility] [place] [address] [facility] Lipase (11/11/2017 12:18 PM CDT) athologist Signature Lipase, S 42 13 - 60 U/L 11/11/2017 [facility] 1:01 PM CDT [facility] Specimen Anatomical Collection Method Collection Time Receive d Time (Source) Location / / Volume Laterality Blood (Blood, 11/11/2017 12:18 11/11/2017 Venous) PM CDT 12:40 PM CDT Seng Reyna M.D. LAB BLOOD ADD-ON Performing Organization Address City/State/ZIP Code Phon e Number [facility] [address] [place] [address] [facility] (ABNORMAL) CMP (Comprehensive Metabolic Panel) (11/11/2017 12:18 PM CDT) P athologist Signature Potassium, S 5.4 (H) 3.6 - 5.2 11/11/2017 [facility] mmol/L 1:01 PM T [facility] Sodium, S 138 135 - 145 11/11/2017 [facility] mmol/L 1:01 PM T [facility] Chloride, S 103 98 - 107 11/11/2017 [facility] mmol/L 1:01 PM T [facility] Bicarbonate, S 23 22 - 29 11/11/2017 [facility] mmol/L 1:01 PM T [facility] Anion Gap 12 7 - 15 11/11/2017 [facility] 1:01 PM T [facility] BUN (Blood Urea 35 (H) 6 - 21 11/11/2017 [facility] Nitrogen), S mg/dL 1:01 PM [facility] Creatinine 0.69 0.59 - 11/11/2017 [facility] 1.04 mg/dL 1:01 PM [facility] eGFR >90 >=60 11/11/2017 [facility] Non-Black/Afric mL/min/BSA 1:01 PM [facility] Comment: ----ADDITIONAL INFORMATION---- Estimated GFR calculated using the 2009 CKD_EPI creatinine equation. eGFR Black/ >90 >=60 mL/min/BSA 11/11/2017 1:01 PM [facility] Comment: ----ADDITIONAL INFORMATION---- Estimated GFR calculated using the 2009 CKD_EPI creatinine equation. Calcium, Total, S 8.9 8.9 - 10.1 11/11/2017 1:01 PM [facility] mg/dL [facility] Glucose, S 153 (H) 70 - 140 mg/dL 11/11/2017 1:01 PM [facility] Protein, Total, S 6.0 (L) 6.3 - 7.9 g/dL 11/11/2017 1:01 P M [facility] Albumin, S 3.4 (L) 3.5 - 5.0 g/dL 11/11/2017 1:01 PM [facility] Aspartate 23 8 - 43 U/L 11/11/2017 1:01 PM [facility] Aminotransferase (AST), S [facility] Alkaline Phosphatase, S 124 (H) 37 - 98 U/L 11/11/2017 1:0 1 PM [facility] Alanine Aminotransferase 370 (H) 7 - 45 U/L 11/11/2017 1:0 1 PM [facility] (ALT), S [facility] Bilirubin, Total, S 0.3 <=1.2 mg/dL 11/11/2017 1:01 PM [facility] Specimen Anatomical Collection Method Collection Time Receive d Time (Source) Location / / Volume Laterality Blood (Blood, 11/11/2017 12:18 11/11/2017 Venous) PM CDT 12:40 PM CDT Seng Reyna M.D. LAB BLOOD ADD-ON Performing Organization Address City/State/ZIP Code Phon e Number [facility] [address] [facility] [address] [facility] (ABNORMAL) CBC with Differential (11/11/2017 12:18 PM CDT) [facility] Method Time Signature Hemoglobin 9.2 (L) 11.6 - 11/11/2017 [facility] 15.0 g/dL 12:45 PM CDT [facility] Hematocrit 29.6 (L) 35.5 - 11/11/2017 [facility] 44.9 % 12:45 PM CDT [facility] Erythrocytes 3.39 (L) 3.92 - 11/11/2017 [facility] 5.13 12:45 PM CDT [facility] x10(12)/L [facility] MCV 87.3 78.2 - 11/11/2017 [facility] 97.9 fL 12:45 PM CDT [facility] RBC Distrib Width 15.4 12.2 - 11/11/2017 [facility] 16.1 % 12:45 PM CDT [facility] Platelet Count 374 (H) 157 - 371 11/11/2017 [facility] x10(9)/L 12:45 PM CDT [facility] Leukocytes 15.1 (H) 3.4 - 9.6 11/11/2017 [facility] x10(9)/L 12:45 PM CDT [facility] Neutrophils 10.79 (H) 1.56 - 11/11/2017 [facility] 6.45 12:45 PM CDT [facility](9)/[facility] Lymphocytes 3.57 (H) 0.95 - 11/11/2017 [facility] 3.07 12:45 PM CDT [facility] x10(9)/L [facility] Monocytes 0.65 0.26 - 11/11/2017 [facility] 0.81 12:45 PM CDT [facility] x10(9)/L [facility] Eosinophils 0.03 0.03 - 11/11/2017 [facility] 0.48 12:45 PM CDT [facility] x10(9)/L [facility] Basophils 0.05 0.01 - 11/11/2017 [facility] 0.08 12:45 PM CDT [facility] x10(9)/L [facility] Specimen Anatomical Collection Method Collection Time Receive d Time (Source) Location / / Volume Laterality Blood (Blood, 11/11/2017 12:18 11/11/2017 Venous) PM CDT 12:40 PM CDT Seng Reyna M.D. 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 PCP - General 02/04/17 04/26/19 documented as of this encounter
--- OUTSIDE RECORDS SUMMARY | 2022-07-03 10:38 | XMS_ITS | Encounter Summary ---
:1985 Author Organization [facility] Address [address] [place] [address] Care Team Providers Name Role Phone Blaire [...] documented as of this encounter Care Teams Grinder And Plater Relationship Specialty Start Date End Date Blaire Bundy, PBrittaneyABrittaney-C. PCP - General 02/04/17 04/26/19 documented as of this encounter
--- OUTSIDE RECORDS SUMMARY | 2022-07-03 10:39 | XMS_ITS | Encounter Summary ---
:1985 Author Organization [facility] Address [address] [place] [address] Care Team Providers Name Role Phone Blaire Bundy P.A.-C. Primary Care Provider [phone] Encounter Details Date Type Department Care Team Description 09/08/2017 Nurse Triage Department of [facility] Todd nikolas Marcos, RBrittaneyNBrittaney [facility], ([address] [place] [address] Social History Tobacco Use Types [...] How often do you attend sikhism or voodoo More than 4 time s [...] documented as of this encounter Care Teams Operating Room Tech Relationship Specialty Start Date End Date Blaire Bundy P.A.-C. PCP - General 02/04/17 04/26/19 documented as of this encounter
--- OUTSIDE RECORDS SUMMARY | 2022-07-03 10:39 | XMS_ITS | Encounter Summary ---
:1985 Author Organization [facility] Address [address] [place] [address] Care Team Providers Name Role Phone Blaire Bundy P.A.-C. Primary Care Provider [phone] Reason for Visit Reason Comments Sore Throat sore throat since Wednesday, no fever, no bodyaches, headaches, dry cough Appointment Request (Routine) - Incomplete Specialty Diagnoses / Procedures Referred By Contact Refer red To Contact Referral ID Status Reason Start Date Expiration Date Visits V isits Requested Authorized [id number] Incomplete 08/02/2017 01/29/2018 1 1 Encounter Details Date Type Department Care Team Description 08/03/2017 Office Visit Department of [facility] Erin Bundy P.A.-C. [address] [place] [address] Sore Throat (Primary Dx); Medicine, Deb Brown, DEAL ARCHITECT, C.N.P. [address] [place] [address] [facility], in [address] [address] Social History Tobacco Use Types [...] Comments Blood Pressure 139/65 08/03/2017 8:38 AM PLANT ACCOUNTANT Pulse 79 08/03/2017 8:38 AM PLANT ACCOUNTANT Temperature 36.3 ??C (97.3 ??F) 08/03/2017 8:38 AM PLANT ACCOUNTANT Respiratory Rate 16 08/03/2017 8:38 AM PLANT ACCOUNTANT Oxygen Saturation 98% 08/03/2017 8:38 AM PLANT ACCOUNTANT Inhaled Oxygen Concentration - - Weight 147 kg (323 lb 10.2 oz) 08/03/2017 8:38 AM PLANT ACCOUNTANT Height 158 cm (5' 2.21) 08/03/2017 8:38 AM PLANT ACCOUNTANT Body Mass Index 58.8 08/03/2017 8:38 AM PLANT ACCOUNTANT documented in this encounter Progress Notes Deb [...] viral illness. She was instructed to use [id number] pain analgesics and increased fluids for symptom management. We discussed the use of honey as needed for symptom management. She was instructed to contact the clinic with worsening or no improvement in symptoms. All questions were answered. She left in no acute distress. Deb Enamorado C.N.P., R.N. T ACCOUNTANT documented in this encounter Plan of Treatment Scheduled Procedures Name Priority Associated Diagnoses Date/Time COLONOSCOPY Diarrhea documented as of this encounter Procedures Procedure Name Priority Date/Time Associated Diagnosis Comme nts BACTERIAL CULTURE, Routine 08/03/2017 4:12 PM Res ults for this THROAT PLANT ACCOUNTANT procedure are i n the results section. RAPID STREP A Routine 08/03/2017 9:27 AM Sore Throat Results for this SCREEN PLANT ACCOUNTANT procedure are i n the results section. documented in this encounter Results Bacterial Culture, Throat (08/03/2017 4:12 PM PLANT ACCOUNTANT) [facility] Method Time Signature Throat No growth of 08/05/2017 [facility] Culture Streptococcus 6:38 AM PLANT ACCOUNTANT [facility] Specimen Anatomical Collection Method Collection Time Receive d Time (Source) Location / / Volume Laterality Throat Swab 08/03/2017 4:12 PM 7 4:12 PLANT ACCOUNTANT PM PLANT ACCOUNTANT Deb Enamorado APRN, C.N.P. LAB MICROBIOLOGY - GENE RAL ORDERABLES Performing Organization Address City/[facility]/ZIP Code Phon e Number [facility] [address] [place] [address], [facility] [address] [facility] Rapid Strep A Screen Throat (08/03/2017 9:27 AM PLANT ACCOUNTANT) athologist Signature Rapid Strep A Negative Negative 08/03/2017 [facility] Screen 9:52 AM [facility] LAB Specimen Anatomical Collection Method Collection Time Receive d Time (Source) Location / / Volume Laterality Varies (Throat) 08/03/2017 9:27 AM 2016 9:36 PLANT ACCOUNTANT AM PLANT ACCOUNTANT Deb Enamorado APRN, C.N.P. LAB MICROBIOLOGY - GENE RAL ORDERABLES Performing Organization Address City/[facility]/ZIP Code Phon e Number [facility] [address] [place] [address] [facility] documented in this encounter Visit Diagnoses Diagnosis Sore Throat - Primary Cough Unspecified Type documented in this encounter Additional Health Concerns Assessment Noted Time PHQ-9 Depression Total Score: 7 04/07/2017 9:39 AM CDT documented as of this encounter Care Teams Jackhammer Splitter Operator Relationship Specialty Start Date End Date Blaire Bundy P.A.-C. PCP - General 02/04/17 04/26/19 documented as of this encounter
--- OUTSIDE RECORDS SUMMARY | 2022-07-03 10:39 | XMS_ITS | Encounter Summary ---
:1985 Author Organization [facility] Address [address] [place] [address] Care Team Providers Name Role Phone Blaire Bundy P.A.-C. Primary Care Provider Encounter Details Date Type Department Care Team Description 06/18/2017 Abstract Department of Family Medicine, Provider, Historical [facility], in [place], [place] [address] [place] [address] [facility] [phone] Social History Tobacco Use Types Packs/Day Years [...] documented as of this encounter Care Teams Prepper Relationship Specialty Start Date End Date Blaire Bundy P.A.-C. PCP - General 02/04/17 04/26/19 documented as of this encounter
--- OUTSIDE RECORDS SUMMARY | 2022-07-03 10:39 | XMS_ITS | Encounter Summary ---
:1985 Author Organization [facility] Address [address] [place] [address] Care Team Providers Name Role Phone Blaire Bundy P.A.-C. Primary Care Provider Encounter Details Date Type Department Care Team Description 09/09/2017 Orders Only Department of General Lydia Crowley, Surgery in [address] [address] [place] [address] [facility] [phone] Social History Tobacco Use Types Packs/Day Years [...] as of this encounter Care Teams Wood Lathe Operator Relationship Specialty Start Date End Date Blaire Bundy P.A.-C. PCP - General 02/04/17 04/26/19 documented as of this encounter
--- OUTSIDE RECORDS SUMMARY | 2022-07-03 10:39 | XMS_ITS | Encounter Summary ---
:1985 Author Organization [facility] Address [address] [place] [address] Care Team Providers Name Role Phone Blaire Bundy P.A.-C. Primary Care Provider Reason for Referral Outpatient (Routine) - Closed Specialty Diagnoses / Procedures Referred By Contact Refer red To Contact General Surgery Diagnoses Appendicitis Acute Par Review Seng Reyna M.D. [facility] Region Procedures GNS POST OP [address] [place] [address] Referral ID Status Reason Start Date Expiration Date Visits Requ ested Visits Authorized [id number] Closed 09/09/2017 03/08/2018 1 1 Scheduling Instructions To see Dr. Monahan 09/15/2016 in [place] . TRIMMER HELPER Reason for Visit Reason Comments Abdominal [...] Expiration Date Visits Requ ested Visits Authorized [id number] 1 1 Encounter Details Date Type Department Care Team Description 09/08/2017 - Emergency [facility], Natalie Car M.D. [address] [place] [phone] Appendicitis Acute 09/09/2017 [facility] Taryn Helm M.D. [address] [place] [address] (Primary Dx) Center, Third Floor Jaquan Monahan D.O. [address] [place] [address] [place] [address] [address] [place] [address] Social History Tobacco Use Types [...] How often do you attend lutheran or rastafarian More than 4 time s [...] Comments Blood Pressure 126/63 09/09/2017 10:22 AM TREE TRIMMER HELPER Pulse 79 09/09/2017 10:22 AM TREE TRIMMER HELPER Temperature 36.7 ??C (98.1 ??F) 09/09/2017 10:22 AM TREE TRIMMER HELPER Respiratory Rate 18 09/09/2017 10:22 AM TREE TRIMMER HELPER Oxygen Saturation 94% 09/09/2017 10:22 AM TREE TRIMMER HELPER Inhaled Oxygen Concentration - - Weight 145 kg (319 lb 10.7 oz) 09/08/2017 2:13 PM TREE TRIMMER HELPER Height 157.5 cm (5' 2) 09/08/2017 10:09 AM TREE TRIMMER HELPER Body Mass Index 58.47 09/08/2017 10:09 AM TREE TRIMMER HELPER documented in this encounter Discharge Summaries Seng Reyna M.D. - 09/09/2017 9:51 AM CST INPATIENT DISCHARGE SUMMARY BRIEF OVERVIEW Discharge Provider: Taryn Ozuna M.D. Primary Care Providers: Blaire Thornton P.A.-C. (General) [address] [place] [phone] Primary Care Provider Primary Care Provider Other Providers: Admission Date: 09/08/2017 Discharge Date: 09/09/2017 PRINCIPAL DIAGNOSIS Appendicitis Acute SECONDARY DIAGNOSES Principal Problem: Appendicitis Acute Resolved Problems: * No resolved hospital problems. * Operative Procedures: Scheduled (Blank), Completed (Comp) or Canceled (Can) Case IDs Date Procedure Surgeon Location Status [id number] 09/08/17 LAPAROSCOPIC APPENDECTOMY Jaquan Monahan D.O. [facility] OR Comp DISCHARGE DISPOSITION Home or [...] Your Medications These medications were sent to [facility] - [address] [address] ?? ciprofloxacin 500 mg tablet ?? metroNIDAZOLE [...] ADMISSION ANESTHESIA FOLLOW-UP CONDITION AT DISCHARGE improved TRIMMER HELPER documented in this encounter Discharge Instructions AttachmentsThe following attachments cannot be sent through Care Everywhere.Care Following Your Laparoscopy (Hungarian)documented in this encounter Medications at Time of [...] /or at baseline Post Op nausea/vomiting: none TRIMMER HELPER documented in this encounter H&P Notes [...] or fallopian tube. She gives informed consent. TRIMMER HELPER documented in this encounter Nursing Notes [...] o-1 Refuses pain medication at this time TRIMMER HELPER documented in this encounter OR Notes Op Note - Jaquan Monahan D.O. - 09/08/2017 4:35 PM CST FULL OP NOTE Procedure(s): LAPAROSCOPIC APPENDECTOMY Surgeon(s) and Role: * Jaquan Monahan D.O. - Primary Practice Representative: Lior PerezPBrittaneyNBrittaney; Nichole Allen L.P.N. Anesthesia Type: [...] Appendix PATHOLOGY SERVICES Jaquan Monahan D.O. 09/08/2017 1700 Drains Indwelling Urinary Catheter Double-lumen 16 Fr. (Active) Estimated Blood Loss No blood loss documented. Implants * No implants in log * Jaquan Monahan D.O. TRIMMER HELPER Brief Op Note - Jaquan Monahan [...] implants in log * Jaquan Monahan D.O. TRIMMER HELPER documented in this encounter ED Notes [...] admission. He will contact the nursing supervisor ore dressing to determine a plan of when surgery [...] going to talk with the nursing supervisor ore dressing and the operating room about the plan [...] accurate and complete. Dimitri Car M.D. 09/08/172138 TRIMMER HELPER documented in this encounter Plan of Treatment Scheduled Procedures Name Priority Associated Diagnoses Date/Time COLONOSCOPY Diarrhea Scheduled Referrals Name Type Priority Associated Diagnoses Order S [facility] Surgery Outpatient Referral Routine Appendicitis Acute Expected: Post Op (clinic) 09/15/2017 (Approximate), Expires: 09/09/2020 documented as of this encounter Procedures Procedure Name Priority Date/Time Associated Comments Diagnosis CBC WITH Routine 09/09/2017 7:05 Results for DIFFERENTIAL, B AM TREE TRIMMER HELPER this procedu re are in the results section. INCENTIVE Routine 09/08/2017 6:39 SPIROMETRY - RT/RN PM TREE TRIMMER HELPER INCENTIVE Routine 09/08/2017 6:39 SPIROMETRY - RT/RN PM TREE TRIMMER HELPER INCENTIVE Routine 09/08/2017 6:39 SPIROMETRY - RT/RN PM TREE TRIMMER HELPER INCENTIVE Routine 09/08/2017 6:39 SPIROMETRY - RT/RN PM TREE TRIMMER HELPER INCENTIVE Routine 09/08/2017 6:39 SPIROMETRY - RT/RN PM TREE TRIMMER HELPER INCENTIVE Routine 09/08/2017 6:39 SPIROMETRY - RT/RN PM TREE TRIMMER HELPER INCENTIVE Routine 09/08/2017 6:39 SPIROMETRY - RT/RN PM TREE TRIMMER HELPER INCENTIVE Routine 09/08/2017 6:39 SPIROMETRY - RT/RN PM TREE TRIMMER HELPER INCENTIVE Routine 09/08/2017 6:39 SPIROMETRY - RT/RN PM TREE TRIMMER HELPER INCENTIVE Routine 09/08/2017 6:39 SPIROMETRY - RT/RN PM TREE TRIMMER HELPER INCENTIVE Routine 09/08/2017 6:39 SPIROMETRY - RT/RN PM TREE TRIMMER HELPER ADULT OXYGEN Routine 09/08/2017 5:43 THERAPY PM TREE TRIMMER HELPER PATHOLOGY SERVICES Routine 09/08/2017 5:08 Appendicitis Acute Results for PM TREE TRIMMER HELPER this procedure are in the results section. LAPAROSCOPIC 09/08/2017 4:06 Appendicitis Acute APPENDECTOMY PM TREE TRIMMER HELPER CT ABDOMEN PELVIS RAD - Semiurgent 09/08/2017 11:53 Re sults for WITH IV CONTRAST (Fast; most ED AM TREE TRIMMER HELPER this proc edure patients; some are in the inpatients) results section. IRIS MICROSCOPIC, U STAT 09/08/2017 11:03 Resu lts for AM TREE TRIMMER HELPER this procedure are in the results section. URINALYSIS WITH STAT 09/08/2017 11:03 Results for MICROSCOPIC IF AM TREE TRIMMER HELPER this procedur e INDICATED, U are in the results section. HEPATIC FUNCTION STAT 09/08/2017 10:50 Results for PANEL, S AM TREE TRIMMER HELPER this procedure are in the results section. CBC WITH STAT 09/08/2017 10:50 Results for DIFFERENTIAL, B AM TREE TRIMMER HELPER this procedu re are in the results section. C-REACTIVE PROTEIN STAT 09/08/2017 10:50 Resul ts for (CRP), S/P AM TREE TRIMMER HELPER this procedure are in the results section. HUMAN CHORIONIC STAT 09/08/2017 10:50 Results for GONADOTROPIN (HCG), AM TREE TRIMMER HELPER this pro cedure MARCI, are in the results section. LIPASE, S/P STAT 09/08/2017 10:50 Results for AM TREE TRIMMER HELPER this procedure are in the results section. LACTATE, B/P STAT 09/08/2017 10:50 Results for AM TREE TRIMMER HELPER this procedure are in the results section. BASIC METABOLIC STAT 09/08/2017 10:50 Results for PANEL, S/P AM TREE TRIMMER HELPER this procedure are in the results section. documented in this encounter Results (ABNORMAL) CBC with Differential (09/09/2017 7:05 AM TREE TRIMMER HELPER) [facility] Method Time Signature Hemoglobin 11.1 (L) 11.6 - 09/09/2017 [facility] 15.0 g/dL 7:11 AM [employer] [facility] [employer] Hematocrit 34.8 (L) 35.5 - 09/09/2017 [facility] 44.9 % 7:11 AM [employer] LAB Erythrocytes 4.18 3.92 - 09/09/2017 [facility] 5.13 7:11 AM [employer] x10(12)/L [employer] [facility] [employer] LAB MCV 83.3 78.2 - 09/09/2017 [facility] 97.9 fL 7:11 AM [employer] LAB RBC Distrib Width 13.6 12.2 - 09/09/2017 [facility] 16.1 % 7:11 AM [employer] LAB Platelet Count 263 157 - 371 09/09/2017 [facility] x10(9)/L 7:11 AM [facility] Leukocytes 11.8 (H) 3.4 - 9.6 09/09/2017 [facility] x10(9)/L 7:11 AM [facility] Neutrophils 10.54 (H) 1.56 - 09/09/2017 [facility] 6.45 7:11 AM [facility] x10(9)/L [facility] [place] [facility] Lymphocytes 0.65 (L) 0.95 - 09/09/2017 [facility] 3.07 7:11 AM [facility] x10(9)/L [facility] [place] [facility] Monocytes 0.57 0.26 - 09/09/2017 [facility] 0.81 7:11 AM [facility] x10(9)/L [facility] Eosinophils 0.01 (L) 0.03 - 09/09/2017 [facility] 0.48 7:11 AM [facility] x10(9)/L [facility] Basophils 0.01 0.01 - 09/09/2017 [facility] 0.08 7:11 AM [facility] x10(9)/L [facility] [place] [facility] Specimen Anatomical Collection Method Collection Time Receive d Time (Source) Location / / Volume Laterality Blood (Blood, 09/09/2017 7:05 AM 09/09/19 7:08 Venous) TREE TRIMMER HELPER AM TREE TRIMMER HELPER Jaquan Monahan D.O. LAB BLOOD ADD-ON Performing Organization Address City/State/ZIP Code Phon e Number [facility] [address] [place] [address] [facility] Pathology Services (09/08/2017 5:08 PM TREE TRIMMER HELPER) Component Value Ref Test Analysis Performed At [facility] Range Method Time Signature PATHOLOGY Patient Name: PUNEET CLAYTON LUZ ELENA [facility] MR#: [id number] LAUREL Submitting Physician: JAQUAN MONAHAN DO [id number] Specimen #[id number] Performing Lab: ??[facility] ? [address] [facility] [address] Source: Appendix Clinical History/Pre-Op Appendicitis acute [K35.80] Gross Description Labeled appendix consists of a 6.1 cm in length x 1.2 cm in diameter appendix, with attached mesoappendix ( 2.4 cm). ??The serosa is gatica-brown with focal areas of white exudate. ??The muco sa is red-brown hemorrhagic to necrotic. ??An area of disruption is not grossly id entified. ??Self Pay Representative sections are submitted in cassette A1. KG/ed ?? Diagnosis Appendix, appendectomy: ACUTE APPENDICITIS WITH PERIAPPENDICITIS. Electronically Signed By JANNET HERNÁNDEZ MD - 09/10/2017 ed/09/10/2017 Specimen (Source) Anatomical Collection Method Collection Time Re ceived Time Location / / Volume Laterality Tissue (Appendix) 09/08/2017 5:08 PM TREE TRIMMER HELPER Comment: Acute appendicitis Jaquan Monahan D.O. LAB SURG PATH ORDERABLES Performing Organization Address City/State/ZIP Code Phon e Number [facility] [address] [place] [address] CT Abdomen Pelvis with IV Contrast (09/08/2017 11:53 AM TREE TRIMMER HELPER) Anatomical Region Laterality Modality Abdomen, Pelvis N/A Computed Tomography Specimen (Source) Anatomical Collection Method Collection Time Re ceived Time Location / / Volume Laterality 09/08/2017 12:00 PM TREE TRIMMER HELPER Impressions 09/08/2017 12:07 PM TREE TRIMMER HELPER IMPRESSION: 1. ??Acute uncomplicated appendicitis. 2. ??Hepatic steatosis. 3. ??Prominent follicle right ovary. Narrative 09/08/2017 12:07 PM TREE TRIMMER HELPER EXAM: CT ABDOMEN PELVIS WITH IV [...] PROCEDURES (ABNORMAL) Desmond Solo (09/08/2017 11:03 AM TREE TRIMMER HELPER) Analysis Performed At [facility] Time Signature White Blood 11-20 (A) /hpf 09/08/2017 [facility] Cells 11:13 AM [facility] [place] [facility] Comment: ----REFERENCE VALUE---- Males: 0-3 Females: 0-10 Unknown: 0-10 Red Blood Cells Occ-2 0 - 2 /hpf 09/08/2017 11:13 AM [facility] [place] [facility] Mucus Present /hpf 09/08/2017 11:13 AM [facility] [place] [facility] Squamous Epithelial Occ-3 /hpf 09/08/2017 11:13 AM [facility] Bacteria Present (A) None Seen 09/08/2017 11:13 AM [facility] [place] [facility] Specimen Anatomical Collection Method Collection Time Receive d Time (Source) Location / / Volume Laterality Urine 09/08/2017 11:03 09/08/2017 AM TREE TRIMMER HELPER 11:05 AM TREE TRIMMER HELPER Dimitri Car M.D. LAB URINE ORDERABLES Performing Organization Address City/State/ZIP Code Phon e Number [facility] [address] [place] [address] [facility] (ABNORMAL) Urinalysis with Microscopic if Indicated (09/08/2017 11:03 AM TREE TRIMMER HELPER) Analysis Performed At Patho logist Time Signature Source Midstream 09/08/2017 [facility] 11:13 AM [facility] [place] [facility] Clarity Slightly Clear 09/08/2017 [facility] Cloudy (A) 11:13 AM [facility] [place] [facility] Color Yellow 09/08/2017 [facility] 11:13 AM [facility] [place] [facility] Comment: ----REFERENCE VALUE---- Colorless Yellow Philomena Blood Negative Negative 09/08/2017 11:[address] [facility] [place] [facility] Nitrite Positive (A) Negative 09/08/2017 11:[address] [facility] [place] [facility] Leukocyte Esterase Moderate (A) Negative 09/08/2017 11:1 3 AM [facility] [place] [facility] Protein, U Trace mg/dL 09/08/2017 11:13 AM [facility] [place] [facility] Comment: ----REFERENCE VALUE---- Negative Trace Glucose Negative Negative mg/dL 09/08/2017 11:13 AM [facility] [place] [facility] Ketone Negative Negative mg/dL 09/08/2017 11:13 AM [facility] [place] [facility] Bilirubin Negative Negative 09/08/2017 11:13 AM [facility] [place] [facility] pH 6.0 5.0 - 8.0 09/08/2017 11:13 AM [facility] Specific Tarpley 1.015 1.001 - 1.035 09/08/2017 11:13 AM [facility] Urobilinogen 0.2 0.2 - 1.0 09/08/2017 11:13 AM [facility] [place] [facility] Specimen Anatomical Collection Method Collection Time Receive d Time (Source) Location / / Volume Laterality Urine (Urine, 09/08/2017 11:03 09/08/2017 Clean Catch) AM TREE TRIMMER HELPER 11:05 AM TREE TRIMMER HELPER Dimitri Car M.D. LAB URINE ORDERABLES Performing Organization Address City/[facility] [address]/ZIP Code Phon e Number [address] [place] [address] [facility] (ABNORMAL) CRP (C-Reactive Protein) (09/08/2017 10:50 AM TREE TRIMMER HELPER) Analysis Performed At Patho logist Time Signature C-Reactive 115.8 (H) <=8.0 mg/L 09/08/2017 [facility] Protein (CRP), 11:12 AM [facility] Specimen Anatomical Collection Method Collection Time Receive d Time (Source) Location / / Volume Laterality Blood (Blood, 09/08/2017 10:50 09/08/2017 Venous) AM TREE TRIMMER HELPER 10:52 AM TREE TRIMMER HELPER Dimitri Car M.D. LAB BLOOD ADD-ON Performing Organization Address City/State/ZIP Code Phon e Number [address] [place] [address] [facility] hCG (Human Chorionic Gonadotropin), Quantitative, (09/08/2017 10:50 AM TREE TRIMMER HELPER) P athologist Signature HCG, <0.5 IU/L 09/08/2017 [facility] Quantitative, 11:36 AM [facility] [place] [facility] Comment: Biotin has been identified by the doug saucedo as a potential interfering substance. ??Higher concentr ations of biotin may be found in multivitamins, hair/nail supple ments, and workout supplements. ??If the result does not [facility] clinical observations, repeat testing after patient refrains fr om the use of supplements for at least 12 hours. ----REFERENCE VALUE---- <5.0 Negative 5.0-25.0 Indeterminate >25.0 Positive Specimen Anatomical Collection Method Collection Time Receive d Time (Source) Location / / Volume Laterality Blood (Blood, 09/08/2017 10:50 09/08/2017 Venous) AM TREE TRIMMER HELPER 10:52 AM TREE TRIMMER HELPER Dimitri Car M.D. LAB BLOOD ADD-ON Performing Organization Address City/State/ZIP Code Phon e Number [facility] [address] [place] [address] [facility] Lipase (09/08/2017 10:50 AM TREE TRIMMER HELPER) P athologist Signature Lipase, P 22 13 - 60 U/L 09/08/2017 [facility] 11:13 AM [facility] Specimen Anatomical Collection Method Collection Time Receive d Time (Source) Location / / Volume Laterality Blood (Blood, 09/08/2017 10:50 09/08/2017 Venous) AM TREE TRIMMER HELPER 10:52 AM TREE TRIMMER HELPER Dimitri Car M.D. LAB BLOOD ADD-ON Performing Organization Address City/State/ZIP Code Phon e Number [facility] [address] [place] [address] [facility] Lactate (09/08/2017 10:50 AM TREE TRIMMER HELPER) P athologist Signature Lactate, P 0.7 0.6 - 2.3 09/08/2017 [facility] mmol/L 11:11 AM [facility] Specimen Anatomical Collection Method Collection Time Receive d Time (Source) Location / / Volume Laterality Blood (Blood, 09/08/2017 10:50 09/08/2017 Venous) AM TREE TRIMMER HELPER 10:52 AM TREE TRIMMER HELPER Dimitri Car M.D. LAB BLOOD NON ADD-ON Performing Organization Address City/State/ZIP Code Phon e Number [facility] [address] [place] [address] [facility] (ABNORMAL) Hepatic Function Panel (09/08/2017 10:50 AM TREE TRIMMER HELPER) Patholo gist Method Time Signature Bilirubin, Total, S 1.1 <=1.2 09/08/2017 [facility] mg/dL 11:12 AM [facility] Bilirubin, Direct, S 0.2 0.0 - 0.3 09/08/2017 [facility] mg/dL 11:12 AM [facility] Aspartate 32 8 - 43 09/08/2017 [facility] Aminotransferase U/L 11:12 AM [facility] Alanine 83 (H) 7 - 45 09/08/2017 [facility] Aminotransferase U/L 11:12 AM [facility] Alkaline 101 (H) 37 - 98 09/08/2017 [facility] Phosphatase, S U/L 11:12 AM [facility] Albumin, S 3.9 3.5 - 5.0 09/08/2017 [facility] g/dL 11:12 AM [facility] Protein, Total, S 6.9 6.3 - 7.9 09/08/2017 [facility] g/dL 11:12 AM [facility] Specimen Anatomical Collection Method Collection Time Receive d Time (Source) Location / / Volume Laterality Blood (Blood, 09/08/2017 10:50 09/08/2017 Venous) AM TREE TRIMMER HELPER 10:52 AM TREE TRIMMER HELPER Dimitri Car M.D. LAB BLOOD ADD-ON Performing Organization Address City/State/ZIP Code Phon e Number [facility] [address] [place] [address] [facility] BMP (Basic Metabolic Panel) (09/08/2017 10:50 AM TREE TRIMMER HELPER) P athologist Signature Potassium, P 4.2 3.6 - 5.2 09/08/2017 [facility] mmol/L 11:13 AM [facility] Sodium, P 135 135 - 145 09/08/2017 [facility] mmol/L 11:13 AM [facility] Chloride, P 99 98 - 107 09/08/2017 [facility] mmol/L 11:13 AM [facility] Bicarbonate, P 22 22 - 29 09/08/2017 [facility] mmol/L 11:13 AM [facility] Anion Gap, P 14 7 - 15 09/08/2017 [facility] 11:13 AM [facility] BUN (Blood Urea 7 6 - 21 09/08/2017 [facility] Nitrogen), P mg/dL 11:13 AM [facility] Creatinine 0.62 0.59 - 09/08/2017 [facility] 1.04 mg/dL 11:13 AM [facility] eGFR-Black/Afri >90 >=60 09/08/2017 [facility] can Bel[place]ian mL/min/BSA 11:13 AM [facility] Comment: ----ADDITIONAL INFORMATION---- Estimated GFR calculated using the 2009 CKD_EPI creatinine equation. eGFR Non-Black/ >90 >=60 mL/min/BSA 09/08/2017 11:13 AM [facility] [place]ian [facility] Comment: ----ADDITIONAL INFORMATION---- Estimated GFR calculated using the 2009 CKD_EPI creatinine equation. Calcium, Total, P 9.1 8.9 - 10.1 mg/dL 09/08/2017 1 1:13 AM [facility] LAB Glucose, P 104 70 - 140 mg/dL 09/08/2017 11:13 AM [facility] LAB Specimen Anatomical Collection Method Collection Time Receive d Time (Source) Location / / Volume Laterality Blood (Blood, 09/08/2017 10:50 09/08/2017 Venous) AM [facility] 10:52 AM [facility] Dimitri Car M.D. LAB BLOOD ADD-ON Performing Organization Address City/State/ZIP Code Phon e Number [facility] [address] [place] [address] [facility] (ABNORMAL) CBC with Differential (09/08/2017 10:50 AM [facility]) [facility] Method Time Signature Hemoglobin 12.3 11.6 - 09/08/2017 [facility] 15.0 g/dL 10:56 AM [facility] Hematocrit 37.8 35.5 - 09/08/2017 [facility] 44.9 % 10:56 AM [facility] Erythrocytes 4.60 3.92 - 09/08/2017 [facility] 5.13 10:56 AM [facility]ALTH x10(12)/L [facility] MCV 82.2 78.2 - 09/08/2017 [facility] 97.9 fL 10:56 AM [facility] [place] [facility] RBC Distrib Width 13.9 12.2 - 09/08/2017 [facility] 16.1 % 10:56 AM [facility] [place] Platelet Count 293 157 - 371 09/08/2017 [facility] x10(9)/L 10:56 AM [facility] Leukocytes 15.8 (H) 3.4 - 9.6 09/08/2017 [facility] x10(9)/L 10:56 AM [facility] Neutrophils 13.48 (H) 1.56 - 09/08/2017 [facility] 6.45 10:56 AM [facility] x[facility](9)/[facility] Lymphocytes 1.35 0.95 - 09/08/2017 [facility] 3.07 10:56 AM [facility] x10(9)/L [facility] Monocytes 0.87 (H) 0.26 - 09/08/2017 [facility] 0.81 10:56 AM [facility] x10(9)/L [facility] Eosinophils 0.04 0.03 - 09/08/2017 [facility] 0.48 10:56 AM [facility] x10(9)/L [facility] Basophils 0.03 0.01 - 09/08/2017 [facility] 0.08 10:56 AM [facility] x10(9)/L [facility] Specimen Anatomical Collection Method Collection Time Receive d Time (Source) Location / / Volume Laterality Blood (Blood, 09/08/2017 10:50 09/08/2017 Venous) AM TREE TRIMMER HELPER 10:52 AM TREE TRIMMER HELPER Dimitri Car M.D. LAB BLOOD ADD-ON Performing Organization Address City/State/ZIP Code Phon e Number [facility] [address] [place] [address] [facility] documented in this encounter Visit Diagnoses Diagnosis Appendicitis Acute - Primary Appendicitis Acute documented in this encounter Administered Medications Inactive Administered Medications - up to 3 most recent administrations Medication Order MAR Action Action Date Dose Rate Site ciprofloxacin in D5W IVPB New Bag 09/08/2017 12:29 PM 400 mg 2 00 mL/hr Right Hand 400 mg (for_CIPRO) TREE TRIMMER HELPER 400 mg, intravenous, at 200 mL/hr, Administer over 60 Minutes, Once, On Wed09/08/17 at 1216, For 1 dose, premix bag, Drug Monitoring Program: Pharmacist to adjust medication order based on comorbities and indication., Indications: Appendicitis ciprofloxacin in D5W IVPB New Bag 09/09/2017 12:23 AM 400 mg 2 00 mL/hr Right Hand 400 mg (for_CIPRO) TREE TRIMMER HELPER 400 mg, intravenous, at 200 mL/hr, Administer over 60 Minutes, Once, On Bryanna 09/09/17 at 0030, For 1 dose, Start within 12 hours of last dose. premix bag, Drug Monitoring Program: Pharmacist to adjust medication order based on comorbities and indication., Indications: Prophylaxis, surgical heparin (porcine) 5,000 Given 09/08/2017 2:43 PM TREE TRIMMER HELPER 5,000 Units Abdominal Tissue unit/0.5 mL injection - ADS Override Pull Starting on Wed09/08/17 at 1426, For 1 dose, Created by cabinet override heparin (porcine) Given 09/09/2017 9:14 AM TREE TRIMMER HELPER 7,500 Units Left Lower Abdomen injection 7,500 Units 7,500 Units, subcutaneous, 3 times daily, First dose on Bryanna 09/09/17 at 0145 Given 09/09/2017 1:48 AM TREE TRIMMER HELPER 7,500 Units Right Lower Abdomen HYDROmorphone injection 0.5 mg (for_DILA UDID) Given 09/08/2017 2:40 PM TREE TRIMMER HELPER 0.5 mg 0.5 mg, intravenous, Every 1 hour PRN, moderate pain or score 4-6 of 10, Starting on Wed09/08/17 at 1253 iohexol 350 mg iodine/mL solution Given 09/08/2017 11:54 AM TREE TRIMMER HELPER 171 mL Right Hand 171 mL (for_OMNIPAQUE) 171 mL, intravenous, Once in imaging, contrast, Starting on Wed09/08/17 at 1059, For 1 dose ketorolac injection 30 mg Given 09/08/2017 10:57 AM TREE TRIMMER HELPER 30 mg Right Hand (for_TORADOL) 30 mg, intravenous, Once, On Wed09/08/17 at 1040, For 1 dose, Adult IV push rate: Over 15 seconds. Peds IV push rate: Over 1 minute. 60 mg dose only for IM, not recommended for IV., Drug Monitoring Program: Pharmacist to adjust medication order based on comorbities and indication. lactated ringers New Bag 09/08/2017 2:50 PM TREE TRIMMER HELPER 20 mL/hr 20 mL/hr 20 mL/hr, intravenous, Continuous, Starting on Wed09/08/17 at 1430, Pre-Op lactated ringers Rate/Dose Verify 09/08/2017 10:00 PM TREE TRIMMER HELPER 75 mL/hr 75 mL/hr 75 mL/hr, intravenous, Continuous, Starting on Wed09/08/17 at 2000 New Bag 09/08/2017 7:55 PM TREE TRIMMER HELPER 75 mL/hr 75 mL/hr metroNIDAZOLE in NaCl (iso-osm) New Bag 09/08/2017 1:39 PM TREE TRIMMER HELPER 500 mg 200 mL/hr IVPB 500 mg (for_FLAGYL) 500 mg, intravenous, at 200 mL/hr, Administer over 30 Minutes, Once, On Wed09/08/17 at 1210, For 1 dose, Indications: Appendicitis metroNIDAZOLE in NaCl (iso-osm) New Bag 09/09/2017 5:36 AM TREE TRIMMER HELPER 500 mg 200 mL/hr IVPB 500 mg (for_FLAGYL) 500 mg, intravenous, at 200 mL/hr, Administer over 30 Minutes, Every 8 hours, First dose on Wed09/08/17 at 2145, For 2 doses, Start within 8 hours of last dose., Indications: Prophylaxis, surgical New Bag 09/08/2017 9:25 PM TREE TRIMMER HELPER 500 mg 200 mL/hr morphine injection 4 mg Given 09/08/2017 10:57 AM TREE TRIMMER HELPER 4 mg 4 mg, intravenous, Every 20 min PRN, moderate pain or score 4-6 of 10, severe pain or score 7-10 of 10, Starting on Wed09/08/17 at 1038, For 3 doses NaCl 0.9 % bolus 1,000 New Bag 09/08/2017 10:58 AM 1,000 mL 2000 mL/hr Right Hand mL TREE TRIMMER HELPER 1,000 mL, intravenous, at 2,000 mL/hr, Administer over 0.5 Hours, Once, On Wed09/08/17 at 1040, For 1 dose NaCl 0.9% infusion New Bag 09/08/2017 11:27 AM 1,000 mL/hr 1000 mL/hr Right Aiken nd 1,000 mL/hr, TREE TRIMMER HELPER intravenous, Continuous, Starting on Wed09/08/17 at 1040, For Hydration ondansetron (PF) injection 4 mg (for_ZOF RAN) Given 09/08/2017 2:51 PM TREE TRIMMER HELPER 4 mg 4 mg, intravenous, Every 20 min PRN, nausea, vomiting, Starting on Wed09/08/17 at 1038, For 2 doses Given 09/08/2017 10:57 AM TREE TRIMMER HELPER 4 mg ondansetron (PF) injection 4 mg (for_ZOF RAN) 4 mg, intravenous, Every 6 hours PRN, na usea, vomiting, Starting on Wed09/08/17 at 1254 oxyCODONE IR tablet 5 mg (for_ROXICODONE ) Given 09/09/2017 5:45 AM TREE TRIMMER HELPER 5 mg 5 mg, oral, Every 4 hours PRN, mild pain or score 1-3 of 10, Starting on Wed09/08/17 at 1839 Given 09/09/2017 12:40 AM TREE TRIMMER HELPER 5 mg sodium chloride 0.9 % injection 10 mL 10 mL, intravenous, As needed, line care, Starting on Wed09/08/17 at 1037, Peripheral Intravenous Catheter and Rapid Infusion Cat heter, prior to blood sampling, post blood transfusion or post blood samplin g sodium chloride 0.9 % injection 10 Given 09/08/2017 11:55 AM TREE TRIMMER HELPER 10 mL Right Hand mL 10 [...] % injection 80 Given 09/08/2017 11:09 AM TREE TRIMMER HELPER 80 mL Right Hand mL 80 mL, intravenous, Once, On Wed09/08/17 at 1109, For 1 dose documented in this encounter Active and Recently Administered Medications Times are shown in TREE TRIMMER HELPER. Scheduled Medication Order 09/07/2017 09/08/2017 09/09/2017 ciprofloxacin in D5W IVPB 400 mg (for_CIPRO) (COMPLETED) 1229 (New Bag - Provider: Keiry Perales RMarcos.)1330 (Stopped - Provider: Keiry Perales R.N.) 400 mg, intravenous, at 200 mL/hr, Admin ister over 60 Minutes, Once, On Wed09/08/17 at 1216, For 1 dose, premix bag, Drug Monitoring Program: Pharmacist to adjust medication order based on comorbities and indication., Indications: Appendicitis ciprofloxacin in D5W IVPB 400 mg (for_CIPRO) (COMPLETED) 0023 (New Bag - Provider: Suni Perales R.N.) 400 mg, intravenous, at 200 mL/hr, Admin ister over 60 Minutes, Once, On Bryanna 09/09/17 at 0030, For 1 dose, Start within 12 hours of last dose. premix bag, Drug Monitoring Program: Pharmacist to adjust med ication order based on comorbities and i ndication., Indications: Prophylaxis, surgical heparin (porcine) injection 7,500 Units 0148 (Given - Provider: Suni Perales R.N.)0914 (Given - Provider: Kiera Bush R.N.) 7,500 Units, subcutaneous, 3 times daily, First dose on Bryanna 09/09 at 0145 ketorolac injection 30 mg (for_TORADOL) (COMPLETED) 1057 (Given - Provider: Keiry Perales R.N.) 30 mg, intravenous, Once, On Wed09/08/17 at 1040, For 1 dose, Adult IV push rate: Over 15 seconds. Peds IV push rate: Over 1 minute. 60 mg dose only for IM, not recommended for IV., Drug Monitoring Prog bekah: Pharmacist to adjust medication order based on co morbities and indication. lactated Ringer's bolus 500 mL 1999 (Can celed Entry - Provider: Charline Lundberg R.N. - Comment: incorrect order by schwtyrel T.O. not to give had difficulity removing order) 500 mL, intravenous, at 250 mL/hr, Admin ister over 2 Hours, Once, Wed09/08/17 at 2000, For 1 dose metroNIDAZOLE in NaCl (iso-osm) IVPB 500 mg (for_FLAGYL) (CO MPLETED) 1339 (New Bag - Provider: Keiry Perales R.N.)1401 (Stopped - Provider: Keiry Perales R.N.) 500 mg, intravenous, at 200 mL/hr, Admin ister over 30 Minutes, Once, On 1/17/18 at 1210, For 1 dose, Indications: Appendicitis metroNIDAZOLE in NaCl (iso-osm) IVPB 500 mg (for_FLAGYL) (CO MPLETED) 2125 (New Bag - Provider: Charline Lundberg R.N.) 0536 (New Bag - Provider: Suni madrid R.N.) 500 mg, intravenous, at 200 mL/hr, Admin ister over 30 Minutes, Every 8 hours, First dose on Wed09/08/17 at 2145, For 2 doses, Start within 8 hours of last dose., Indications: Prophylaxis, surgical NaCl 0.9 % bolus 1,000 mL (COMPLETED) 10 58 (New Bag - Provider: Keiry Perales R.N.)1127 (Stopped - Provider: Keiry Perales R.N.) 1,000 mL, intravenous, at 2,000 mL/hr, A dminister over 0.5 Hours, Once, On Wed09/08/17 at 1040, For 1 dose sodium chloride 0.9 % injection 3 mL 140 8 (OCT Hold - Provider: Transfer Provider, Automatic - Reason: Patient not available)1811 ([facility] Unhold - Provider: Transfer Provider, Automatic)2100 (Not [...] Ruben KrishnamurthyTBrittaney(R)(CT), R.T.(R)) 80 mL, intravenous, Once, On Wed09/08/17 at 1109, For 1 dose Continuous Medication Order 09/07/2017 09/08/2017 09/09/2017 lactated ringers (CANCELED) 1450 (New Bag - Prov ider: Zelda Vilchis RRoverto) 20 mL/hr, intravenous, Continuous, Starting on Wed09/08/17 at 14 30, Pre-Op lactated ringers 1955 (New Bag - Prov ider: Charline Lundberg R.N.)2200 (Rate/Dose Verify - Provider: Charline Lundberg R.N.) 75 mL/hr, intravenous, Continuous, Starting on Wed09/08/17 at 20 00 NaCl 0.9% infusion 1127 (New Bag - Prov ider: Keiry Perales R.N.)1401 (Stopped - Provider: Keiry Perales R.N.) 1,000 mL/hr, intravenous, Continuous, St arting on Wed09/08/17 at 1040, For Hydration PRN Medication [...] not available)1440 (Given - Provider: Zelda Vilchis R.N.)1811 ([facility] Unhold - Provider: Transfer Provider, Automatic) 0.5 mg, intravenous, Every 1 hour PRN, m oderate pain or score 4-6 of 10, Starting on Wed09/08/17 at 1253 HYDROmorphone injection 1 mg [...] 1119 (Due)1154 (Given - Provider: Marlene Krishnamurthy(R)(CT), R.T.(R)) 171 mL, intravenous, Once in imaging, co ntrast, Starting on Wed09/08/17 at 1059, For 1 dose lidocaine 50 mL, bupivacaine PF 50 mL 100 mL injection ([facility]) 1717 (Given - Provider: Jaquan Monahan D.O.) As needed, Starting Wed09/08/17 at 1717, Intra-Op morphine injection 4 mg 1057 (Given - Pr ovider: Keiry Perales R.N.)1408 ([facility] Hold - Provider: Transfer Provider, Automatic - Reason: Patient not available)181 ([facility] Unhold - Provider: Transfer Provider, Automatic) 4 mg, intravenous, Every 20 min PRN, mod erate pain or score 4-6 of 10, severe pain or score 7-10 of 10, Starting on Wed09/08/17 at 1038, For 3 doses naloxone [...] 1057 (Given - Provider: Keiry Perales R.N.)1408 ([facility] Hold - Provider: Transfer Provider, Automatic - Reason: Patient not available)1451 (Given - Provider: Zelda Vilchis R.N.)181 ([facility] Unhold - Provider: Transfer Provider, Automatic) 4 mg, intravenous, Every 20 min PRN, [place], vomiting, Starting on Wed09/08/17 at 1038, For 2 doses ondansetron (PF) injection 4 mg (for_ZOFRAN) 1408 ([facility] Hold - Provider: Transfer Provider, Automatic - Reason: Patient not available)1448 (Dose Auto Held)181 ([facility] Unhold - Provider: Transfer Provider, Automatic) 4 mg, intravenous, Every 6 hours PRN, na usea, vomiting, Starting on Wed09/08/17 at 1254 ondansetron (PF) injection 4 [...] of 10, Starting on Wed09/08/17 at 1839 promethazine injection 6.25 mg [...] Provider, Automatic - Reason: Patient not available)181 (OCT Unhold - Provider: Transfer Provider, Automatic) 10 mL, intravenous, As needed, line care , Starting on Wed09/08/17 at 1037, Peripheral Intravenous Catheter and Rapid Infusion Catheter, prior to blood sampling, post blood transfusion or post blood sampling sodium chloride 0.9 % injection 10 mL (COMPLETED) 1155 (Given - Provider: Marlene Krishnamurthy(R)(CT), R.TBrittaney(R)) 10 mL, intravenous, Once in imaging, kody e care, Starting on Wed09/08/17 at 1107, For [...] (Given - Provider: Zelda Vilchis R.N.) Starting on Wed09/08/17 at 1426, For 1 dose, Created by cabinet override documented in this encounter Additional Health Concerns Assessment Noted Time PHQ-9 Depression Total Score: 7 04/07/2017 9:39 AM CDT documented as of this encounter Care Teams Websphere Process Server Developer Relationship Specialty Start Date End Date Blaire Bundy P.A.-C. PCP - General 02/04/17 04/26/19 documented as of this encounter
--- OUTSIDE RECORDS SUMMARY | 2022-07-03 10:39 | XMS_ITS | Encounter Summary ---
:1985 Author Organization [facility] Address [address] [place] [address] Care Team Providers Name Role Phone Blaire Bundy P.A.-C. Primary Care Provider [phone] Reason for Visit Reason Comments Communication [facility] hospital follow-up Encounter Details Date Type Department Care Team Description 09/10/2017 Clinical Department of Suellen Beasley on ([facility] Internal R, R.N. hospital follow-up) Medicine in [address] [place] [address], [address] [place] [address] [place] [phone] [address] (Work) [phone] Social History Tobacco Use Types Packs/Day Years [...] How often do you attend yazidism or christianity More than 4 time s [...] to pay for the very basics like [employer] hat hard 07/09/2020 food, housing, medical care, [...] 8:02 AM CST See previous note, duplicate. [place] COURT Telephone Encounter - Suellen Beasley R.N. - 09/10/2017 7:40 AM CST Discharge date 09/09/17 at 1230. Reason for hospitalization Appendicitis acute. Follow up scheduled for 09/20/17. [address] [address] documented in this encounter Plan of Treatment Scheduled Procedures Name Priority Associated Diagnoses Date/Time COLONOSCOPY Diarrhea documented as of this encounter Visit Diagnoses Not on filedocumented in this encounter Additional Health Concerns Assessment Noted Time PHQ-9 Depression Total Score: 7 04/07/2017 9:39 AM CDT documented as of this encounter Care Teams Piercing Specialist Relationship Specialty Start Date End Date Blaire Bundy P.A.-C. PCP - General 02/04/17 04/26/19 documented as of this encounter
--- OUTSIDE RECORDS SUMMARY | 2022-07-03 10:39 | XMS_ITS | Encounter Summary ---
:1985 Author Organization [facility] [place] [facility] Address [address] [place] [address] Care Team Providers Name Role Phone Blaire Bundy P.A.-C. Primary Care Provider [phone] Reason for Visit Reason Comments Care Encounter Details Date Type Department Care Team Description 07/29/2017 Office Visit Department of Leonora Reaves, Management C ontraception By Injection (Primary Dx); Obstetrics and FLOOR SPECIALIST, C.N.P. Exam (HCC) Gynecology in [address] [address] [place], [place] [phone] [address] (Work) [phone] Social History Tobacco Use Types Packs/Day Years [...] How often do you attend holiness or sabianism More than 4 time s [...] Comments Blood Pressure 132/82 07/29/2017 10:53 AM POST SPLITTER Pulse - - Temperature - - Respiratory Rate - - Oxygen Saturation - - Inhaled Oxygen Concentration - - Weight 145 kg (319 lb 10.7 oz) 07/29/2017 10:53 AM POST SPLITTER Height - - Body Mass Index 58.3 06/23/2017 4:33 PM CDT documented in this encounter Progress Notes Leonora Reaves R.N., WHNP-BC - 07/29/2017 11:00 AM CST SUBJECTIVE CHIEF COMPLAINT / REASON FOR VISIT Carol Cooley, , is status post vaginal at [facility] [place] [facility] in [place]. Antepartum course was complicated by: Obesity. course [...] or hernia Genitalia: external vulva, Bartholin's, urethra, Nellysford's glands and fourchette negative Perineum: intact; well healed Vagina: normal Cervix: normal Bimanual: exam revealed normal mobile uterus, negative adnexa Rectovaginal exam: confirms good sphincter tone Non Acoustic Operator for pelvic exam or qualifying procedure: Lory [...] of the content. Leonora Reaves R.N., SIM- SPLITTER documented in this encounter Plan of Treatment [...] mg Right Vastus 150 mg 11:37 AM POST SPLITTER Lateralis 150 mg, intramuscular, Every 12 weeks, First dose on Bryanna 07/29/17 at 1145, For 4 doses documented in this encounter Additional Health Concerns Assessment Noted Time PHQ-9 Depression Total Score: 7 04/07/2017 9:39 AM CDT documented as of this encounter Care Teams International Flight Attendant Relationship Specialty Start Date End Date Blaire Bundy P.A.-C. PCP - General 02/04/17 04/26/19 documented as of this encounter
--- OUTSIDE RECORDS SUMMARY | 2022-07-03 10:39 | XMS_ITS | Encounter Summary ---
:1985 Author Organization [facility] Address [address] [place] [address] Care Team Providers Name Role Phone Blaire Bundy P.A.-C. Primary Care Provider Reason for Visit Reason Onset Date Comments Post Hospital Follow-up 09/09/2017 [place] 09/09/17 Encounter Details Date Type Department Care Team Description 09/09/2017 Clinical Communication Department of [facility] Medicine, Barbara Barrett R.N. Follow-up ([place] [address] 09/09/17) Clinic, in [address] [address] [facility] [phone] [place], [place] (Work) [phone] Social History Tobacco Use [...] How often do you attend christianity or spiritism More than 4 time s [...] feedback: Post hospital near miss assessment: none IER DRIVER Telephone Encounter - Barbara Bang R.N. - 09/09/2017 2:07 PM COURIER DRIVER Discharge date 09/09/17 at 1230. Reason for hospitalization Admission PRINCIPAL DIAGNOSIS Appendicitis Acute. Follow up scheduled for 09/20/17 @ [address] Reyna (surgical f/u). IER DRIVER documented in this encounter Plan of Treatment Scheduled Procedures Name Priority Associated Diagnoses Date/Time COLONOSCOPY Diarrhea documented as of this encounter Visit Diagnoses Not on filedocumented in this encounter Additional Health Concerns Assessment Noted Time PHQ-9 Depression Total Score: 7 04/07/2017 9:39 AM CDT documented as of this encounter Care Teams Salvage Grinder Relationship Specialty Start Date End Date Blaire Bundy P.A.-C. PCP - General 02/04/17 04/26/19 documented as of this encounter
--- OUTSIDE RECORDS SUMMARY | 2022-07-03 10:39 | XMS_ITS | Encounter Summary ---
:1985 Author Organization [facility] Address [address] [place] [address] Care Team Providers Name Role Phone Blaire Bundy P.A.-C. Primary Care Provider Encounter Details Date Type Department Care Team Description 08/02/2017 Nurse Triage Department of [facility] Anastasia Sands, Medicine, [facility], R.N. in [address] [place] [address] [place] [address] [phone] Social History Tobacco Use Types Packs/Day Years [...] How often do you attend islam or latter-day More than 4 time s [...] documented as of this encounter Care Teams Zoology Professor Relationship Specialty Start Date End Date Blaire Bundy P.A.-C. PCP - General 02/04/17 04/26/19 documented as of this encounter
--- OUTSIDE RECORDS SUMMARY | 2022-07-03 10:39 | XMS_ITS | Encounter Summary ---
:1985 Author Organization [facility] Address [address] [place] [address] Care Team Providers Name Role Phone Blaire Bundy P.A.-C. Primary Care Provider Reason for Visit Reason Comments Post-op po lap appy 09-08-17 Outpatient (Routine) - Closed Specialty Diagnoses / Procedures Referred By Contact Refer red To Contact General Surgery Diagnoses Appendicitis Acute Par Review Seng Reyna M.D. [facility] Region Procedures GNS POST OP [address] [place] [address] Referral ID Status Reason Start Date Expiration Date Visits Requ ested Visits Authorized [id number] Closed 09/09/2017 03/08/2018 1 1 Encounter Details Date Type Department Care Team Description 09/17/2017 Office Visit Department of General Seng Reyna M. D. Appendectomy Laparoscopic Status Post (Primary Dx); Surgery in [facility] Hermelinda Hansen, Vianney-Marlyn., P.A. [address] [place] [phone] Appendicitis Acute [address] [address] Social History Tobacco Use Types [...] How often do you attend congregational or hindu More than 4 time s [...] Comments Blood Pressure 115/48 09/17/2017 9:04 AM WIRE DRAWING DIE MAKER Pulse 84 09/17/2017 9:04 AM WIRE DRAWING DIE MAKER Temperature 36.6 ??C (97.9 ??F) 09/17/2017 9:04 AM WIRE DRAWING DIE MAKER Respiratory Rate - - Oxygen Saturation - - Inhaled Oxygen Concentration - - Weight - - Height - - Body Mass Index - - documented in this encounter Patient Instructions Patient InstructionsHermelinda Hansen P.A.-C., P.A. - 09/17/2017 9:00 AM WIRE DRAWING DIE MAKER Images from the original note were not [...] heals ??? Fever above 101.0??F (38.3??C) ?? [phone] [place] [address]. All rights reserved. This information is not intended as a substitute for professional medical care. Always follow your healthcare professional's instructions. DRAWING DIE MAKER documented in this encounter Progress Notes Hermelinda [...] from the hospital. She has been taking oxgx-iju-ujtcvcb pain medications as needed since. She is [...] PATHOLOGY SERVICES Patient Name: PUNEET CLAYTON MR#: [id number] Submitting Physician: JAQUAN MONAHAN DO [id number] Specimen #[id number] Performing Lab: [address] [address] Source: Appendix Clinical History/Pre-Op Appendicitis acute [K35.80] Gross Description Labeled appendix consists of a 6.1 cm in length x 1.2 cm in diameter appendix, with attached mesoappendix (2.4 cm). The serosa is gatica-brown with focal areas of white exudate. The mucosa is red-brown hemorrhagic to necrotic. An area of disruption is not grossly identified. Field Service Supervisor sections are submitted in cassette A1. KG/ed [...] ongoing postoperative parameters including pain management with ulgq-[id number]-ogmzghc Tylenolor ibuprofen as needed, ongoing incision care, [...] concerns that arise. Hermelinda Hansen P.A.-C., P.A. DRAWING DIE MAKER documented in this encounter Plan of Treatment [...] Coordinator Relationship Specialty Start Date End Date Blaire Bundy P.A.-C. PCP - General 02/04/17 04/26/19 documented as of this encounter
--- OUTSIDE RECORDS SUMMARY | 2022-07-03 10:39 | XMS_ITS | Encounter Summary ---
:1985 Author Organization [facility] Address [address] [place] [address] Care Team Providers Name Role Phone Blaire [...] How often do you attend jewish or faith More than 4 time s [...] in this encounter Results HX Syphilis Antibody Plevna, S (06/23/2017 8:47 AM CDT) [facility] Method Time Signature HX Syphilis Negative Negative [facility] Igg Ab LABORATORIES - W/Reflex, S [facility] Comment: Peripheral IV ? No serologic evidence of exposure to syp hilis. ? Specimen Anatomical Collection Method Collection Time Receive d Time (Source) Location / / Volume Laterality 06/23/2017 8:47 AM 7 8:47 CDT AM CDT Narrative [facility] - 06/23/2017 12:57 PM CDT Peripheral IV Carol Hoskins M.D. LAB HISTORICAL ORDERS Performing Organization Address City/State/[facility] Phon e Number [facility] - [address] [place], [place] [address] [facility] documented in this encounter Visit Diagnoses Not on filedocumented in this encounter Additional Health Concerns Assessment Noted Time PHQ-9 Depression Total Score: 7 04/07/2017 9:39 AM CDT documented as of this encounter Care Teams Manager Dish Relationship Specialty Start Date End Date Blaire Bundy P.A.-C. PCP - General 02/04/17 04/26/19 documented as of this encounter
--- OUTSIDE RECORDS SUMMARY | 2022-07-03 10:39 | XMS_ITS | Encounter Summary ---
:1985 Author Organization [facility] Address [address] [place] [address] Care Team Providers Name Role Phone Blaire [...] Expiration Date Visits Requ ested Visits Authorized [id number] 1 1 Encounter Details Date Type Department Care Team Description 09/08/2017 Surgery [facility] MAIN OR Jaquan Monahan, LAPAROSCOPIC [address]HEL[address] D.OBrittaney APPENDECTOMY NEHEMIAH GRANT [phone] [facility] W [phone] NEHEMIAH Nix [phone] (Wo rk) Social History [...] How often do you attend faith or moravian More than 4 time s [...] Comments Blood Pressure 143/71 09/08/2017 2:13 PM ANALYTICAL STATISTICIAN Pulse 116 09/08/2017 2:13 PM ANALYTICAL STATISTICIAN Temperature 36.9 ??C (98.4 ??F) 09/08/2017 2:13 PM ANALYTICAL STATISTICIAN Respiratory Rate 16 09/08/2017 2:13 PM ANALYTICAL STATISTICIAN Oxygen Saturation 96% 09/08/2017 2:13 PM ANALYTICAL STATISTICIAN Inhaled Oxygen Concentration - - Weight 145 kg (319 lb 10.7 oz) 09/08/2017 2:13 PM ANALYTICAL STATISTICIAN Height 157.5 cm (5' 2) 09/08/2017 10:09 AM ANALYTICAL STATISTICIAN Body Mass Index 58.47 09/08/2017 10:09 AM ANALYTICAL STATISTICIAN documented in this encounter Discharge Summaries Seng Reyna M.D. - 09/09/2017 9:51 AM CST INPATIENT DISCHARGE SUMMARY BRIEF OVERVIEW Discharge Provider: Taryn Ozuna M.D. Primary Care Providers: Blaire Thornton P.A.-C. (General) [address] [place] [phone] Primary Care Provider Primary Care Provider Other Providers: Admission Date: 09/08/2017 Discharge Date: 09/09/2017 PRINCIPAL DIAGNOSIS Appendicitis Acute SECONDARY DIAGNOSES Principal Problem: Appendicitis Acute Resolved Problems: * No resolved hospital problems. * Operative Procedures: Scheduled (Blank), Completed (Comp) or Canceled (Can) Case IDs Date Procedure Surgeon Location Status [id number] 09/08/17 LAPAROSCOPIC APPENDECTOMY Jaquan Monahan D.O. [facility] OR Comp DISCHARGE DISPOSITION Home or Self Care [1] ACTIVE ISSUES REQUIRING FOLLOW UP Surgical Pathology OUTPATIENT FOLLOW UP No future appointments. TEST RESULTS PENDING AT DISCHARGE Pending Labs Order Current Status Pathology Services Collected (09/08/17 1032) DISCHARGE MEDICATIONS Your medication list START taking [...] Your Medications These medications were sent to [facility] [address] [address] ?? ciprofloxacin 500 mg tablet ?? metroNIDAZOLE [...] ADMISSION ANESTHESIA FOLLOW-UP CONDITION AT DISCHARGE improved YTICAL STATISTICIAN documented in this encounter Discharge Instructions AttachmentsThe following attachments cannot be sent through Care Everywhere.Care Following Your Laparoscopy ([place] Citizen)documented in this encounter Medications at Time of [...] /or at baseline Post Op nausea/vomiting: none YTICAL STATISTICIAN documented in this encounter H&P Notes Jaquan [...] or fallopian tube. She gives informed consent. YTICAL STATISTICIAN documented in this encounter Nursing Notes Kiera [...] mucous membranes remain intact Adequate for Discharge YTICAL STATISTICIAN Suni Perales R.N. - 09/09/2017 2:12 AM [...] this is a recent diagnosis for her. YTICAL STATISTICIAN Charline Lundberg R.N. - 09/08/2017 9:42 PM [...] o-1 Refuses pain medication at this time YTICAL STATISTICIAN documented in this encounter OR Notes Op Note - Jaquan Monahan D.O. - 09/08/2017 4:35 PM CST FULL OP NOTE Procedure(s): LAPAROSCOPIC APPENDECTOMY Surgeon(s) and Role: * Jaquan Monahan D.O. - Primary Manager Quality: Mandi Santoyo L.P.N.; Nichole Allen L.P.N. Anesthesia [...] implants in log * Jaquan Monahan D.O. YTICAL STATISTICIAN Brief Op Note - Jaquan Monahan D.O. [...] implants in log * Jaquan Monahan D.O. YTICAL STATISTICIAN documented in this encounter ED Notes Dimitri [...] admission. He will contact the nursing supervisor fusing room to determine a plan of when surgery [...] going to talk with the nursing supervisor fusing room and the operating room about the plan [...] accurate and complete. Dimitri Car M.D. 09/08/172138 YTICAL STATISTICIAN documented in this encounter Plan of Treatment Scheduled Procedures Name Priority Associated Diagnoses Date/Time COLONOSCOPY Diarrhea Scheduled Referrals Name Type Priority Associated Diagnoses Order S [facility] General Surgery Outpatient Referral Routine Appendicitis Acute Expected: Post Op (clinic) 09/15/2017 (Approximate), Expires: 09/09/2020 documented as of this encounter Procedures Procedure Name Priority Date/Time Associated Comments Diagnosis CBC WITH Routine 09/09/2017 7:05 Results for DIFFERENTIAL, B AM ANALYTICAL STATISTICIAN this procedu re are in the results section. INCENTIVE Routine 09/08/2017 6:39 SPIROMETRY - RT/RN PM ANALYTICAL STATISTICIAN INCENTIVE Routine 09/08/2017 6:39 SPIROMETRY - RT/RN PM ANALYTICAL STATISTICIAN INCENTIVE Routine 09/08/2017 6:39 SPIROMETRY - RT/RN PM ANALYTICAL STATISTICIAN INCENTIVE Routine 09/08/2017 6:39 SPIROMETRY - RT/RN PM ANALYTICAL STATISTICIAN INCENTIVE Routine 09/08/2017 6:39 SPIROMETRY - RT/RN PM ANALYTICAL STATISTICIAN INCENTIVE Routine 09/08/2017 6:39 SPIROMETRY - RT/RN PM ANALYTICAL STATISTICIAN INCENTIVE Routine 09/08/2017 6:39 SPIROMETRY - RT/RN PM ANALYTICAL STATISTICIAN INCENTIVE Routine 09/08/2017 6:39 SPIROMETRY - RT/RN PM ANALYTICAL STATISTICIAN INCENTIVE Routine 09/08/2017 6:39 SPIROMETRY - RT/RN PM ANALYTICAL STATISTICIAN INCENTIVE Routine 09/08/2017 6:39 SPIROMETRY - RT/RN PM ANALYTICAL STATISTICIAN INCENTIVE Routine 09/08/2017 6:39 SPIROMETRY - RT/RN PM ANALYTICAL STATISTICIAN ADULT OXYGEN Routine 09/08/2017 5:43 THERAPY PM ANALYTICAL STATISTICIAN PATHOLOGY SERVICES Routine 09/08/2017 5:08 Appendicitis Acute Results for PM ANALYTICAL STATISTICIAN this procedure are in the results section. LAPAROSCOPIC 09/08/2017 4:06 Appendicitis Acute APPENDECTOMY PM ANALYTICAL STATISTICIAN CT ABDOMEN PELVIS RAD - Semiurgent 09/08/2017 11:53 Re sults for WITH IV CONTRAST (Fast; most ED AM ANALYTICAL STATISTICIAN this proc edure patients; some are in the inpatients) results section. IRIS MICROSCOPIC, U STAT 09/08/2017 11:03 Resu lts for AM ANALYTICAL STATISTICIAN this procedure are in the results section. URINALYSIS WITH STAT 09/08/2017 11:03 Results for MICROSCOPIC IF AM ANALYTICAL STATISTICIAN this procedur e INDICATED, U are in the results section. HEPATIC FUNCTION STAT 09/08/2017 10:50 Results for PANEL, S AM ANALYTICAL STATISTICIAN this procedure are in the results section. CBC WITH STAT 09/08/2017 10:50 Results for DIFFERENTIAL, B AM ANALYTICAL STATISTICIAN this procedu re are in the results section. C-REACTIVE PROTEIN STAT 09/08/2017 10:50 Resul ts for (CRP), S/P AM ANALYTICAL STATISTICIAN this procedure are in the results section. HUMAN CHORIONIC STAT 09/08/2017 10:50 Results for GONADOTROPIN (HCG), AM ANALYTICAL STATISTICIAN this pro cedure MARCI, are in the results section. LIPASE, S/P STAT 09/08/2017 10:50 Results for AM ANALYTICAL STATISTICIAN this procedure are in the results section. LACTATE, B/P STAT 09/08/2017 10:50 Results for AM ANALYTICAL STATISTICIAN this procedure are in the results section. BASIC METABOLIC STAT 09/08/2017 10:50 Results for PANEL, S/P AM ANALYTICAL STATISTICIAN this procedure are in the results section. documented in this encounter Results (ABNORMAL) CBC with Differential (09/09/2017 7:05 AM ANALYTICAL STATISTICIAN) [facility] Method Time Signature Hemoglobin 11.1 (L) 11.6 - 09/09/2017 [facility] 15.0 g/dL 7:11 AM ANALYTICAL STATISTICIAN [facility] Hematocrit 34.8 (L) 35.5 - 09/09/2017 [facility] 44.9 % 7:11 AM ANALYTICAL STATISTICIAN [facility] Erythrocytes 4.18 3.92 - 09/09/2017 [facility] 5.13 7:11 AM ANALYTICAL STATISTICIAN [facility] x10(12)/L [facility] MCV 83.3 78.2 - 09/09/2017 [facility] 97.9 fL 7:11 AM ANALYTICAL STATISTICIAN [facility] RBC Distrib Width 13.6 12.2 - 09/09/2017 [facility] 16.1 % 7:11 AM ANALYTICAL STATISTICIAN [facility] Platelet Count 263 157 - 371 09/09/2017 [facility] x10(9)/L 7:11 AM ANALYTICAL STATISTICIAN [facility] Leukocytes 11.8 (H) 3.4 - 9.6 09/09/2017 [facility] x10(9)/L 7:11 AM ANALYTICAL STATISTICIAN [facility] Neutrophils 10.54 (H) 1.56 - 09/09/2017 [facility] 6.45 7:11 AM ANALYTICAL STATISTICIAN [facility] x10(9)/L [facility] Lymphocytes 0.65 (L) 0.95 - 09/09/2017 [facility] 3.07 7:11 AM ANALYTICAL STATISTICIAN [facility] x10(9)/L [facility] Monocytes 0.57 0.26 - 09/09/2017 [facility] 0.81 7:11 AM ANALYTICAL STATISTICIAN HEALTH x10(9)/L [facility] Eosinophils 0.01 (L) 0.03 - 09/09/2017 [facility] 0.48 7:11 AM ANALYTICAL STATISTICIAN [facility]ALTH x10(9)/L [facility] Basophils 0.01 0.01 - 09/09/2017 [facility] 0.08 7:11 AM ANALYTICAL STATISTICIAN [facility] x10(9)/[facility] Specimen Anatomical Collection Method Collection Time Receive d Time (Source) Location / / Volume Laterality Blood (Blood, 09/09/2017 7:05 AM 09/09/19 7:08 Venous) ANALYTICAL STATISTICIAN AM ANALYTICAL STATISTICIAN Jaquan Monahan D.O. LAB BLOOD ADD-ON Performing Organization Address City/[facility]/ZIP [facility] [place] Number [facility] [address] [place] [address] [facility] Pathology Services (09/08/2017 5:08 PM ANALYTICAL STATISTICIAN) Component Value Ref Test Analysis Performed At [facility] Range Method Time Signature PATHOLOGY Patient Name: [facility] MR#: [id number] [facility] Submitting Physician: JAQUAN MONAHAN DO [id number] Specimen #[id number] Performing Lab: ??[facility] ? [address] [place] [address] Source: Appendix Clinical History/Pre-Op Appendicitis acute [K35.80] Gross Description Labeled appendix consists of a 6.1 cm in length x 1.2 cm in diameter appendix, with attached mesoappendix ( 2.4 cm). ??The serosa is gatica-brown with focal areas of white exudate. ??The muco sa is red-brown hemorrhagic to necrotic. ??An area of disruption is not grossly id entified. ??Food Service Worker sections are submitted in cassette A1. KG/ed ?? Diagnosis Appendix, appendectomy: ACUTE APPENDICITIS WITH PERIAPPENDICITIS. Electronically Signed By JANNET HERNÁNDEZ MD - 09/10/2017 ed/09/10/2017 Specimen (Source) Anatomical Collection Method Collection Time Re ceived Time Location / / Volume Laterality Tissue (Appendix) 09/08/2017 5:08 PM ANALYTICAL STATISTICIAN Comment: Acute appendicitis Jaquan Monahan D.O. LAB SURG PATH ORDERABLES Performing Organization Address City/[facility]/ZIP Code Phon e Number [address] [address] [address] Abdomen Pelvis with IV Contrast (09/08/2017 11:53 AM ANALYTICAL STATISTICIAN) Anatomical Region Laterality Modality Abdomen, Pelvis N/A Computed Tomography Specimen (Source) Anatomical Collection Method Collection Time Re ceived Time Location / / Volume Laterality 09/08/2017 12:00 PM ANALYTICAL STATISTICIAN Impressions 09/08/2017 12:07 PM ANALYTICAL STATISTICIAN IMPRESSION: 1. ??Acute uncomplicated appendicitis. 2. ??Hepatic steatosis. 3. ??Prominent follicle right ovary. Narrative 09/08/2017 12:07 PM ANALYTICAL STATISTICIAN EXAM: CT ABDOMEN PELVIS WITH IV CONTRAST [...] (ABNORMAL) Iris Microscopic, U (09/08/2017 11:03 AM ANALYTICAL STATISTICIAN) Analysis Performed At Patho logist Time Signature White Blood 11-20 (A) /hpf 09/08/2017 [facility] Cells 11:13 AM [facility] LAB Comment: ----REFERENCE VALUE---- Males: 0-3 Females: 0-10 Unknown: 0-10 Red Blood Cells Occ-2 0 - 2 /hpf 09/08/2017 11:13 AM [facility] Mucus Present /hpf 09/08/2017 11:13 AM [facility] Squamous Epithelial Occ-3 /hpf 09/08/2017 11:13 AM [facility] Bacteria Present (A) None Seen 09/08/2017 11:13 AM [facility] Specimen Anatomical Collection Method Collection Time Receive d Time (Source) Location / / Volume Laterality Urine 09/08/2017 11:03 09/08/2017 AM ANALYTICAL STATISTICIAN 11:05 AM ANALYTICAL STATISTICIAN Dimitri Car M.D. LAB URINE ORDERABLES Performing Organization Address City/State/ZIP Code Phon e Number [facility] [address] [place] [address] LAB (ABNORMAL) Urinalysis with Microscopic if Indicated (09/08/2017 11:03 AM ANALYTICAL STATISTICIAN) Analysis Performed At Patho logist Time Signature Source Midstream 09/08/2017 [facility] 11:13 AM [facility] Clarity Slightly Clear 09/08/2017 [facility] Cloudy (A) 11:13 AM [facility] Color Yellow 09/08/2017 [facility] 11:13 AM [facility] LAB Comment: ----REFERENCE VALUE---- Colorless Yellow [place] Blood Negative Negative 09/08/2017 11:13 AM [facility] Nitrite Positive (A) Negative 09/08/2017 11:[address] [facility] Leukocyte Esterase Moderate (A) Negative 09/08/2017 11:1 3 AM [facility] Protein, U Trace mg/dL 09/08/2017 11:13 AM [facility] LAB Comment: ----REFERENCE VALUE---- Negative Trace Glucose Negative Negative mg/dL 09/08/2017 11:13 AM [facility] LAB Ketone Negative Negative mg/dL 09/08/2017 11:13 AM [facility] Bilirubin Negative Negative 09/08/2017 11:13 AM [facility] LAB pH 6.0 5.0 - 8.0 09/08/2017 11:13 AM [facility] LAB Specific [place] 1.015 1.001 - 1.035 09/08/2017 11:13 AM [facility] LAB Urobilinogen 0.2 0.2 - 1.0 09/08/2017 11:[address] [facility] Specimen Anatomical Collection Method Collection Time Receive d Time (Source) Location / / Volume Laterality Urine (Urine, 09/08/2017 11:03 09/08/2017 Clean Catch) AM ANALYTICAL STATISTICIAN 11:05 AM ANALYTICAL STATISTICIAN Dimitri Car M.D. LAB URINE ORDERABLES Performing Organization Address City/State/ZIP Code Phon e Number [facility] [address] [facility] [place] [address] [place] [facility] (ABNORMAL) CRP (C-Reactive Protein) (09/08/2017 10:50 AM ANALYTICAL STATISTICIAN) Analysis Performed At Patho logist Time Signature C-Reactive 115.8 (H) <=8.0 mg/L 09/08/2017 [facility] Protein (CRP), 11:12 AM [facility] LAB Specimen Anatomical Collection Method Collection Time Receive d Time (Source) Location / / Volume Laterality Blood (Blood, 09/08/2017 10:50 09/08/2017 Venous) AM ANALYTICAL STATISTICIAN 10:52 AM ANALYTICAL STATISTICIAN Dimitri Car M.D. LAB BLOOD ADD-ON Performing Organization Address City/State/ZIP Code Phon e Number [address] [address] [place] [facility] hCG (Human Chorionic Gonadotropin), Quantitative, (09/08/2017 10:50 AM ANALYTICAL STATISTICIAN) P athologist Signature HCG, <0.5 IU/L 09/08/2017 [facility] Quantitative, 11:36 AM [facility] [place] [facility] Comment: Biotin has been identified by the doug saucedo as a potential interfering substance. ??Higher concentr ations of biotin may be found in multivitamins, hair/nail supple ments, and workout supplements. ??If the result does not [facility] clinical observations, repeat testing after patient refrains fr om the use of supplements for at least 12 hours. ----REFERENCE VALUE---- <5.0 Negative 5.0-25.0 Indeterminate >25.0 Positive Specimen Anatomical Collection Method Collection Time Receive d Time (Source) Location / / Volume Laterality Blood (Blood, 09/08/2017 10:50 09/08/2017 Venous) AM ANALYTICAL STATISTICIAN 10:52 AM ANALYTICAL STATISTICIAN Dimitri Car M.D. LAB BLOOD ADD-ON Performing Organization Address City/State/ZIP Code Phon e Number [facility] [address] [place] [address] [facility] Lipase (09/08/2017 10:50 AM ANALYTICAL STATISTICIAN) P athologist Signature Lipase, P 22 13 - 60 U/L 09/08/2017 [facility] 11:13 AM [facility] LAB Specimen Anatomical Collection Method Collection Time Receive d Time (Source) Location / / Volume Laterality Blood (Blood, 09/08/2017 10:50 09/08/2017 Venous) AM ANALYTICAL STATISTICIAN 10:52 AM ANALYTICAL STATISTICIAN Dimitri Car M.D. LAB BLOOD ADD-ON Performing Organization Address City/State/ZIP Code Phon e Number [facility] [place] [address] [facility] Lactate (09/08/2017 10:50 AM ANALYTICAL STATISTICIAN) P athologist Signature Lactate, P 0.7 0.6 - 2.3 09/08/2017 [facility] mmol/L 11:11 AM [facility] Specimen Anatomical Collection Method Collection Time Receive d Time (Source) Location / / Volume Laterality Blood (Blood, 09/08/2017 10:50 09/08/2017 Venous) AM ANALYTICAL STATISTICIAN 10:52 AM ANALYTICAL STATISTICIAN Dimitri Car M.D. LAB BLOOD NON ADD-ON Performing Organization Address City/State/ZIP Code Phon e Number [facility] [place] [address] [facility] (ABNORMAL) Hepatic Function Panel (09/08/2017 10:50 AM ANALYTICAL STATISTICIAN) Patholo gist Method Time Signature Bilirubin, Total, S 1.1 <=1.2 09/08/2017 [facility] mg/dL 11:12 AM [facility] Bilirubin, Direct, S 0.2 0.0 - 0.3 09/08/2017 [facility] mg/dL 11:12 AM [facility] Aspartate 32 8 - 43 09/08/2017 [facility] Aminotransferase U/L 11:12 AM [employer] (AST[facility] Alanine 83 (H) 7 - 45 09/08/2017 [facility] Aminotransferase U/L 11:12 AM [employer] (ALT), [facility] Alkaline 101 (H) 37 - 98 09/08/2017 [facility] Phosphatase, S U/L 11:12 AM [facility] Albumin, S 3.9 3.5 - 5.0 09/08/2017 [facility] g/dL 11:12 AM [facility] Protein, Total, S 6.9 6.3 - 7.9 09/08/2017 [facility] g/dL 11:12 AM [facility] Specimen Anatomical Collection Method Collection Time Receive d Time (Source) Location / / Volume Laterality Blood (Blood, 09/08/2017 10:50 09/08/2017 Venous) AM ANALYTICAL STATISTICIAN 10:52 AM ANALYTICAL STATISTICIAN Dimitri Car M.D. LAB BLOOD ADD-ON Performing Organization Address City/State/ZIP Code Phon e Number [facility] [address] [place] [address] [facility] BMP (Basic Metabolic Panel) (09/08/2017 10:50 AM ANALYTICAL STATISTICIAN) P athologist Signature Potassium, P 4.2 3.6 - 5.2 09/08/2017 [facility] mmol/L 11:13 AM [facility] Sodium, P 135 135 - 145 09/08/2017 [facility] mmol/L 11:13 AM [facility] Chloride, P 99 98 - 107 09/08/2017 [facility] mmol/L 11:13 AM [facility] Bicarbonate, P 22 22 - 29 09/08/2017 [facility] mmol/L 11:13 AM [facility] Anion Gap, P 14 7 - 15 09/08/2017 [facility] 11:13 AM [facility] BUN (Blood Urea 7 6 - 21 09/08/2017 [facility] Nitrogen), P mg/dL 11:13 AM [facility] Creatinine 0.62 0.59 - 09/08/2017 [facility] 1.04 mg/dL 11:13 AM [facility] LAB eGFR-Black/Afri >90 >=60 09/08/2017 [facility] can [place] mL/min/BSA 11:13 AM [facility] Comment: ----ADDITIONAL INFORMATION---- Estimated GFR calculated using the 2009 CKD_EPI creatinine equation. eGFR Non-Black/ >90 >=60 mL/min/BSA 09/08/2017 11:13 AM [facility] [place] [facility] Comment: ----ADDITIONAL INFORMATION---- Estimated GFR calculated using the 2009 CKD_EPI creatinine equation. Calcium, Total, P 9.1 8.9 - 10.1 mg/dL 09/08/2017 1 1:13 AM [facility] Glucose, P 104 70 - 140 mg/dL 09/08/2017 11:13 AM [facility] [employer] LAB Specimen Anatomical Collection Method Collection Time Receive d Time (Source) Location / / Volume Laterality Blood (Blood, 09/08/2017 10:50 09/08/2017 Venous) AM ANALYTICAL STATISTICIAN 10:52 AM ANALYTICAL STATISTICIAN Dimitri Car M.D. LAB BLOOD ADD-ON Performing Organization Address City/State/ZIP Code Phon e Number [facility] [address] [facility] [place] [address] [place] [facility] (ABNORMAL) CBC with Differential (09/08/2017 10:50 AM ANALYTICAL STATISTICIAN) [facility] Method Time Signature Hemoglobin 12.3 11.6 - 09/08/2017 [facility] 15.0 g/dL 10:56 AM [facility] Hematocrit 37.8 35.5 - 09/08/2017 [facility] 44.9 % 10:56 AM [facility] Erythrocytes 4.60 3.92 - 09/08/2017 [facility] 5.13 10:56 AM [facility] [employer] x10(12)/L [facility] MCV 82.2 78.2 - 09/08/2017 [facility] 97.9 fL 10:56 AM [facility] LAB RBC Distrib Width 13.9 12.2 - 09/08/2017 [facility] 16.1 % 10:56 AM [facility] LAB Platelet Count 293 157 - 371 09/08/2017 [facility] x10(9)/L 10:56 AM [facility] LAB Leukocytes 15.8 (H) 3.4 - 9.6 09/08/2017 [facility] x10(9)/L 10:56 AM [facility] LAB Neutrophils 13.48 (H) 1.56 - 09/08/2017 [facility] 6.45 10:56 AM [facility] [employer] x10(9)/L [facility] [employer] LAB Lymphocytes 1.35 0.95 - 09/08/2017 [facility] 3.07 10:56 AM [facility] [employer] x10(9)/L [facility] Monocytes 0.87 (H) 0.26 - 09/08/2017 [facility] 0.81 10:56 AM [facility] [employer] x10(9)/L [facility] Eosinophils 0.04 0.03 - 09/08/2017 [facility] 0.48 10:56 AM ANALYTICAL STATISTICIAN [facility] x10(9)/L [facility] [place] [facility] Basophils 0.03 0.01 - 09/08/2017 [facility] 0.08 10:56 AM ANALYTICAL STATISTICIAN [facility] x10(9)/L [facility] [place] [facility] Specimen Anatomical Collection Method Collection Time Receive d Time (Source) Location / / Volume Laterality Blood (Blood, 09/08/2017 10:50 09/08/2017 Venous) AM ANALYTICAL STATISTICIAN 10:52 AM ANALYTICAL STATISTICIAN Dimitri Car M.D. LAB BLOOD ADD-ON Performing Organization Address City/State/ZIP Code Phon e Number [facility] [address] [place] [address] [place] [facility] documented in this encounter Visit Diagnoses Diagnosis Appendicitis Acute - Primary Appendicitis Acute Appendicitis Acute documented in this encounter Administered Medications Inactive Administered Medications - up to 3 most recent administrations Medication Order MAR Action Action Date Dose Rate Site ciprofloxacin in D5W IVPB New Bag 09/08/2017 12:29 PM 400 mg 2 00 mL/hr Right Hand 400 mg (for_CIPRO) ANALYTICAL STATISTICIAN 400 mg, intravenous, at 200 mL/hr, Administer over 60 Minutes, Once, On Wed09/08/17 at 1216, For 1 dose, premix bag, Drug Monitoring Program: Pharmacist to adjust medication order based on comorbities and indication., Indications: Appendicitis ciprofloxacin in D5W IVPB New Bag 09/09/2017 12:23 AM 400 mg 2 00 mL/hr Right Hand 400 mg (for_CIPRO) ANALYTICAL STATISTICIAN 400 mg, intravenous, at 200 mL/hr, Administer over 60 Minutes, Once, On Wed09/09/17 at 0030, For 1 dose, Start within 12 hours of last dose. premix bag, Drug Monitoring Program: Pharmacist to adjust medication order based on comorbities and indication., Indications: Prophylaxis, surgical heparin (porcine) 5,000 Given 09/08/2017 2:43 PM ANALYTICAL STATISTICIAN 5,000 Units Abdominal Tissue unit/0.5 mL injection - ADS Override Pull Starting on Wed09/08/17 at 1426, For 1 dose, Created by cabinet override heparin (porcine) Given 09/09/2017 9:14 AM ANALYTICAL STATISTICIAN 7,500 Units Left Lower Abdomen injection 7,500 Units 7,500 Units, subcutaneous, 3 times daily, First dose on Wed09/09/17 at 0145 Given 09/09/2017 1:48 AM ANALYTICAL STATISTICIAN 7,500 Units Right Lower Abdomen HYDROmorphone injection 0.5 mg (for_DILA UDID) Given 09/08/2017 2:40 PM ANALYTICAL STATISTICIAN 0.5 mg 0.5 mg, intravenous, Every 1 hour PRN, moderate pain or score 4-6 of 10, Starting on Wed09/08/17 at 1253 iohexol 350 mg iodine/mL solution Given 09/08/2017 11:54 AM ANALYTICAL STATISTICIAN 171 mL Right Hand 171 mL (for_OMNIPAQUE) 171 mL, intravenous, Once in imaging, contrast, Starting on Wed09/08/17 at 1059, For 1 dose ketorolac injection 30 mg Given 09/08/2017 10:57 AM ANALYTICAL STATISTICIAN 30 mg Right Hand (for_TORADOL) 30 mg, intravenous, Once, On Wed09/08/17 at 1040, For 1 dose, Adult IV push rate: Over 15 seconds. Peds IV push rate: Over 1 minute. 60 mg dose only for IM, not recommended for IV., Drug Monitoring Program: Pharmacist to adjust medication order based on comorbities and indication. lactated ringers New Bag 09/08/2017 2:50 PM ANALYTICAL STATISTICIAN 20 mL/hr 20 mL/hr 20 mL/hr, intravenous, Continuous, Starting on Wed09/08/17 at 1430, Pre-Op lactated ringers Rate/Dose Verify 09/08/2017 10:00 PM ANALYTICAL STATISTICIAN 75 mL/hr 75 mL/hr 75 mL/hr, intravenous, Continuous, Starting on Wed09/08/17 at 2000 New Bag 09/08/2017 7:55 PM ANALYTICAL STATISTICIAN 75 mL/hr 75 mL/hr lidocaine 50 mL, bupivacaine PF Given 09/08/2017 5:17 PM ANALYTICAL STATISTICIAN 9 m L Abdominal Tissue 50 mL 100 mL injection As needed, Starting on Wed09/08/17 at 1717, Intra-Op metroNIDAZOLE in NaCl (iso-osm) New Bag 09/08/2017 1:39 PM ANALYTICAL STATISTICIAN 500 mg 200 mL/hr IVPB 500 mg (for_FLAGYL) 500 mg, intravenous, at 200 mL/hr, Administer over 30 Minutes, Once, On Wed09/08/17 at 1210, For 1 dose, Indications: Appendicitis metroNIDAZOLE in NaCl (iso-osm) New Bag 09/09/2017 5:36 AM ANALYTICAL STATISTICIAN 500 mg 200 mL/hr IVPB 500 mg (for_FLAGYL) 500 mg, intravenous, at 200 mL/hr, Administer over 30 Minutes, Every 8 hours, First dose on Wed09/08/17 at 2145, For 2 doses, Start within 8 hours of last dose., Indications: Prophylaxis, surgical New Bag 09/08/2017 9:25 PM ANALYTICAL STATISTICIAN 500 mg 200 mL/hr morphine injection 4 mg Given 09/08/2017 10:57 AM ANALYTICAL STATISTICIAN 4 mg 4 mg, intravenous, Every 20 min PRN, moderate pain or score 4-6 of 10, severe pain or score 7-10 of 10, Starting on Wed09/08/17 at 1038, For 3 doses NaCl 0.9 % bolus 1,000 New Bag 09/08/2017 10:58 AM 1,000 mL 2000 mL/hr Right Hand mL ANALYTICAL STATISTICIAN 1,000 mL, intravenous, at 2,000 mL/hr, Administer over 0.5 Hours, Once, On Wed09/08/17 at 1040, For 1 dose NaCl 0.9% infusion New Bag 09/08/2017 11:27 AM 1,000 mL/hr 1000 mL/hr Right Aiken nd 1,000 mL/hr, ANALYTICAL STATISTICIAN intravenous, Continuous, Starting on Wed09/08/17 at 1040, For Hydration ondansetron (PF) injection 4 mg (for_ZOF RAN) Given 09/08/2017 2:51 PM ANALYTICAL STATISTICIAN 4 mg 4 mg, intravenous, Every 20 min PRN, nausea, vomiting, Starting on Wed09/08/17 at 1038, For 2 doses Given 09/08/2017 10:57 AM ANALYTICAL STATISTICIAN 4 mg ondansetron (PF) injection 4 mg (for_ZOF RAN) 4 mg, intravenous, Every 6 hours PRN, na usea, vomiting, Starting on Wed09/08/17 at 1254 oxyCODONE IR tablet 5 mg (for_ROXICODONE ) Given 09/09/2017 5:45 AM ANALYTICAL STATISTICIAN 5 mg 5 mg, oral, Every 4 hours PRN, mild pain or score 1-3 of 10, Starting on Wed09/08/17 at 1839 Given 09/09/2017 12:40 AM ANALYTICAL STATISTICIAN 5 mg sodium chloride 0.9 % injection 10 mL 10 mL, intravenous, As needed, line care, Starting on Wed09/08/17 at 1037, Peripheral Intravenous Catheter and Rapid Infusion Cat heter, prior to blood sampling, post blood transfusion or post blood samplin g sodium chloride 0.9 % injection 10 Given 09/08/2017 11:55 AM ANALYTICAL STATISTICIAN 10 mL Right Hand mL 10 mL, [...] % injection 80 Given 09/08/2017 11:09 AM ANALYTICAL STATISTICIAN 80 mL Right Hand mL 80 mL, intravenous, Once, On Wed09/08/17 at 1109, For 1 dose documented in this encounter Active and Recently Administered Medications Times are shown in ANALYTICAL STATISTICIAN. Scheduled Medication Order 09/07/2017 09/08/2017 09/09/2017 ciprofloxacin [...] Lundberg R.N. - Comment: incorrect order by jass T.OBrittaney not to give had difficulity removing order) 500 mL, intravenous, at 250 mL/hr, Admin ister over 2 Hours, Once, Wed09/08/17 at 2000, For 1 dose metroNIDAZOLE in NaCl (iso-osm) IVPB 500 mg (for_FLAGYL) (CO MPLETED) 1339 (New Bag - Provider: Keiry Perales R.N.)1401 (Stopped - Provider: Keiry Perales R.N.) 500 mg, intravenous, at 200 mL/hr, Admin ister over 30 Minutes, Once, On Wed09/08/17 at [...] (COMPLETED) 1109 (Given - Provider: Ruben KrishnamurthyTBrittaney(R)(CT), R.TBrittaney(R)) 80 mL, intravenous, Once, On Wed09/08/17 at 1109, For 1 dose Continuous Medication Order 09/07/2017 09/08/2017 09/09/2017 lactated ringers (CANCELED) 1450 (New Bag - Prov ider: Zelda Vilchis R.NBrittaney) 20 mL/hr, intravenous, Continuous, Starting on Wed09/08/17 [...] promethazine). HYDROmorphone injection 0.5 mg (for_DILAUDID) 1408 (OCT Hold - Provider: Transfer Provider, Automatic - Reason: Patient not available)1440 (Given - Provider: Zelda Vilchis, R.N.)181 ([facility] Unhold - Provider: Transfer Provider, [...] bupivacaine PF 50 mL 100 mL injection ([facility] EL[facility]) 1717 (Given - Provider: Jaquan Monahan D.O.) As needed, Starting on Wed09/08/17 at 1717, Intra-Op morphine injection 4 mg 1057 (Given - Pr ovider: Keiry Perales R.N.)1408 ([facility] Hold - Provider: Transfer Provider, Automatic - Reason: Patient not available)181 ([facility] Unhold - Provider: Transfer Provider, [...] 1057 (Given - Provider: Keiry Perales R.N.)1408 (OCT Hold - Provider: Transfer [...] (Given - Provider: Zelda Vilchis, RBrittaneyNBrittaney) Starting on Wed09/08/17 at 1426, For 1 dose, Created by cabinet override documented in this encounter Additional Health Concerns Assessment Noted Time PHQ-9 Depression Total Score: 7 04/07/2017 9:39 AM CDT documented as of this encounter Care Teams Assistant Property Manager Relationship Specialty Start Date End Date Blaire Bundy P.A.-C. PCP - General 02/04/17 04/26/19 documented as of this encounter
--- OUTSIDE RECORDS SUMMARY | 2022-07-03 10:39 | XMS_ITS | Encounter Summary ---
:1985 Author Organization [facility] Address [address] [place] [address] Care Team Providers Name Role Phone Catracho Bundy P.A.-C. Primary Care Provider Encounter Details Date Type Department Care Team Description 06/15/2017 Hospital Encounter [facility]X [facility] Leon[facility] Melchor, Maureen TARIQ, C.N.P. [address] [place], [place] [phone] (Wo rk) Social History [...] How often do you attend rastafari or presybeterian More than 4 time s [...] 06/15/2017 10:26 AM CDT Ambulatory Patient Summary [address] [id number] Visit Information Name: COOLEY PUNEET ALVARADO [facility] Number: [id number] Current Date: 06/15/2017 10:26:41 Physicians Attending Provider: LEONORA VILLASEÑOR R.N. [facility] Primary Care Provider: CATRACHO NAZARIO PA-C PUNEET [...] if you dont have one. Go to [email or web address] and click on Create Your Account. Then, follow the directions to complete the online form. Youll be asked for your [facility] number which you can find at the top of this document. Your Goals/Additional instructions: Source: [facility] POWERCHART Document Id: [id number] Miscellaneous - Leonora Villaseñor R.N., WHNP-BC - 06/15/2017 10:26 AM CDT Ambulatory Discharge Medication List [address] [id number] Visit Information Name: PUNEET COOLEY [facility] Number: [id number] Current Date: 06/15/2017 10:26:41 Attending [...] emergency. Electronically Signed By: LEONORA VILLASEÑOR R.N. [facility] Signed On:15-JUN-2017 10:26:39 Additional Information: Source: [facility] POWERCHART Document Id: [id number] Miscellaneous - Roosevelt Rodriges, L.P.N. - 06/15/2017 10:24 AM CDT Adult Vp Compliance Intake/History Adult Vp Compliance Intake/History Entered On: 06/15/2017 10:27 CDT Performed On: 06/15/2017 10:24 CDT by ROOSEVELT RODRIGES DECORATING INSPECTOR Intake Chief Complaint : OB check Temperature [...] Information Given By : Patient Languages : Kinyarwanda Is Patient Female and 13-50 no hysterectomy [...] CARRILLOI Apollo REID 06/15/2017 10:24 CDT Source: [employer] Document Id: [id number] CDT!40 documented in this encounter Plan of Treatment Scheduled Procedures Name Priority Associated Diagnoses Date/Time COLONOSCOPY Diarrhea documented as of this encounter Visit Diagnoses Not on filedocumented in this encounter Additional Health Concerns Assessment Noted Time PHQ-9 Depression Total Score: 7 04/07/2017 9:39 AM CDT documented as of this encounter Care Teams Coat Joiner Lockstitch Relationship Specialty Start Date End Date Catracho Bundy P.A.-C. PCP - General 02/04/17 04/26/19 documented as of this encounter
--- OUTSIDE RECORDS SUMMARY | 2022-07-03 10:39 | XMS_ITS | Encounter Summary ---
:1985 Author Organization [facility] Address [address] [place] [address] Care Team Providers Name Role Phone Blaire Bundy P.A.-C. Primary Care Provider [phone] Reason for Visit Auth/Cert Specialty Diagnoses / Procedures Referred By Contact Refer red To Contact Diagnoses Appendicitis Acute Appendicitis Acute Procedures LAPAROSCOPIC APPENDECTOMY Referral ID Status Reason Start Date Expiration Date Visits Requ ested Visits Authorized [id number] 1 1 Encounter Details Date Type Department Care Team Description 09/08/2017 Anesthesia Event [facility] OR Nancy Smith M.D. [address] [facility] [address] [place] [address] [place], [place] [phone] [address] (Wo rk) Anesthesia Record Procedure Summary [...] h andoff to the receiving staff during [facility] we 1. Identified the [...] D, Time: 161 (created BRENDA RIVERO APRN, SUPERINTENDENT COLLIERY via procedure documentation); Mask Ventilation: Easy mask; [...] 8 by Abdomen; and Antionette Barnes, R.N. [facility] dermabond; FACUNDO MANAGER OF MARKETING d, Karena g WND ADH NEONAT 2X3.75 [...] How often do you attend yarsanism or sabianism More than 4 time s [...] Anesthesia Postprocedure Evaluation - Dimitri Chase, JOSEFA, SUPERINTENDENT COLLIERY - 09/08/2017 5:50 PM CST Patient: Carol Cooley Procedure Summary Date: 09/08/17 Room / Location: [address] / [facility] OR Anesthesia Start: 160 Anesthesia Stop: 1738 [...] Post Op nausea/vomiting: none Hydration status: euvolemic NESS MANAGEMENT CONSULTANT Anesthesia Procedure Notes - Dimitri Chase APRN, [...] Procedure outcome: successful Airway event: no complications NESS MANAGEMENT CONSULTANT Anesthesia Preprocedure Evaluation - Nancy Smith M.D. [...] patient / legal guardian, or through an line rider; patient evaluated and approved for anesthesia / sedation. The use of blood products not discussed Discussed risk of potential decreased hormonal contraceptive efficacy for up to one week after anesthesia due to medication interactions. NESS MANAGEMENT CONSULTANT documented in this encounter Plan of Treatment Scheduled Procedures Name Priority Associated Diagnoses Date/Time COLONOSCOPY Diarrhea documented as of this encounter Procedures Procedure Name Priority Date/Time Associated Comments Diagnosis LDA ANE ENDOTRACHEAL Routine 09/08/2017 4:27 PM R esults for this AIRWAY BUSINESS MANAGEMENT CONSULTANT procedure are i n the results section. documented in this encounter Results LDA ANE ENDOTRACHEAL AIRWAY (09/08/2017 4:27 PM BUSINESS MANAGEMENT CONSULTANT) Narrative Dimitri Chase APRN, CRNA - 09/08/19 18 4:27 PM BUSINESS MANAGEMENT CONSULTANT Dimitri Chase APRN, CRNA ? 09/08/2017 ??4:31 [...] grade 2A ETT location: oral VL device: storPassportParking CMAC Storz CMAC blade size: D - [...] Site dexamethasone injection Given 09/08/2017 4:07 PM BUSINESS MANAGEMENT CONSULTANT 8 mg (for_DECADRON) As needed, Starting on Wed09/08/17 at 1607, Anesthesia Intra-op HYDROmorphone injection (for_DILAUDID) Given 09/08/2017 4:14 PM BUSINESS MANAGEMENT CONSULTANT 1 mg As needed, moderate pain or score 4-6 of 10, Starting on Wed09/08/17 at 1614, Anesthesia Intra-op ketamine injection (for_KETALAR) Given 09/08/2017 4:06 PM BUSINESS MANAGEMENT CONSULTANT 50 mg As needed, Starting on Wed09/08/17 at 1606, Anesthesia Intra-op ketorolac injection (for_TORADOL) Given 09/08/2017 5:25 PM BUSINESS MANAGEMENT CONSULTANT 30 mg As needed, moderate pain or score 4-6 of 10, Starting on Wed09/08/17 at 1725, Anesthesia Intra-op lactated ringers New Bag 09/08/2017 4:36 PM BUSINESS MANAGEMENT CONSULTANT intravenous, Continuous Infusion: Per Instructions PRN, Starting on Wed09/08/17 at 1636, Anesthesia Intra-op New Bag 09/08/2017 4:06 PM BUSINESS MANAGEMENT CONSULTANT lidocaine (PF) (cardiac) injection Given 09/08/2017 4:11 PM BUSINESS MANAGEMENT CONSULTANT 150 mg intravenous, As needed, Starting on Wed09/08/17 at 1611, Anesthesia Intra-op midazolam (PF) injection (for_VERSED) Given 09/08/2017 4:06 PM BUSINESS MANAGEMENT CONSULTANT 2 mg intravenous, As needed, Starting on Wed09/08/17 at 1606, Anesthesia Intra-op ondansetron (PF) injection (for_ZOFRAN) Given 09/08/2017 5:11 PM BUSINESS MANAGEMENT CONSULTANT 4 mg intravenous, As needed, nausea, vomiting, Starting on Wed09/08/17 at 1711, Anesthesia Intra-op propofol injection (for_DIPRIVAN) Given 09/08/2017 4:11 PM BUSINESS MANAGEMENT CONSULTANT 300 mg intravenous, As needed, Starting on Wed09/08/17 at 1611, Anesthesia Intra-op rocuronium injection (for_ZEMURON) Given 09/08/2017 4:07 PM BUSINESS MANAGEMENT CONSULTANT 80 mg intravenous, As needed, Starting on Wed09/08/17 at 1607, Anesthesia Intra-op sugammadex injection (for_BRIDION) Given 09/08/2017 5:17 PM BUSINESS MANAGEMENT CONSULTANT 290 mg As needed, Starting on Wed09/08/17 at 1717, Anesthesia Intra-op documented in this encounter Additional Health Concerns Assessment Noted Time PHQ-9 Depression Total Score: 7 04/07/2017 9:39 AM CDT documented as of this encounter Care Teams Electrical Engineering Professor Relationship Specialty Start Date End Date Blaire Bundy P.A.-C. PCP - General 02/04/17 04/26/19 documented as of this encounter
--- OUTSIDE RECORDS SUMMARY | 2022-07-03 10:40 | XMS_ITS | Encounter Summary ---
:1985 Author Organization [facility] Address [address] [place] [address] Care Team Providers Name Role Phone Catracho Bundy P.A.-C. Primary Care Provider Encounter Details Date Type Department Care Team Description 02/22/2017 Hospital Encounter HX [facility] Ashwin Bundy PBrittaneyABrittaney-CBrittaney [address] [place] [address] (Wo rk) Social History Tobacco Use Types [...] How often do you attend advent or confucianism More than 4 time s [...] NAZARIO PA-C On: 02/24/2017 07:37 AM Source: [facility] POWERCHART Document Id: [id number] Leonora Barrios C.M.A. - 02/22/2017 10:36 AM CDT Eye Services Clinic Exam Eye Services Clinic Exam Entered On: 02/22/2017 10:37 CDT Performed On: 02/22/2017 10:36 CDT by LEONORA BARRIOS [facility] Chief Complaint and History Chief Complaint : Eye pain Pain Symptoms : Yes Smoking Status : Light tobacco smoker LEONORA BARRIOS [facility] - 02/22/2017 10:36 CDT Vision Testing Right Eye Vision Testing : With glasses - primary, 20/25 Left Eye Vision Testing : With glasses - primary, 20/30 Both Eyes Vision Testing : With glasses - primary, 20/25 LEONORA BARRIOS ECOLOGY PROFESSOR - 02/22/2017 10:36 CDT Pain Scale Pain Scale Verbal 0-10 : Open LEONORA BARRIOS CMA - 02/22/2017 10:36 CDT Pain Pain Assessment Grid Pain 1 Location : Eye Laterality : Left Intensity : 6 LEONORA BARRIOS CMA - 02/22/2017 10:36 CDT Source: [facility] [employer] Mobile App Document Id: [id number] CDT!17 documented in this encounter Miscellaneous Notes Miscellaneous - Catracho Nazario - 02/22/2017 10:44 AM CDT Work Excuse February 22, 2017 PUNEET FORREST [address] [facility] [id number] Dear PUNEET CLAYTON, You were examined in my office on: 02/22/17 Reason for work excuse: Medical Illness ( X ) Yes ( _ ) No Injury ( _ ) Yes ( _ ) No Is excused from all work: ( X ) Yes ( _ ) No Please excuse Puneet from work today. Sincerely, CATRACHO NAZARIO [id number] [address] Electronic Signature Electronically Signed By: CATRACHO NAZARIO PA-C On: February 22, 2017 This document has images extracted. Source: [facility] [employer] Mobile App Document Id: [id number] Miscellaneous - Leonora Barrios C.M.ABrittaney - 02/22/2017 10:19 AM CDT Adult Silver Lap Machine Tender Intake/History Adult Silver Lap Machine Tender Intake/History Entered On: 02/22/2017 10:23 CDT Performed On: 02/22/2017 10:19 CDT by LEONORA BARRIOS [facility] Intake Chief Complaint : LEFT Eye, [...] Preferred Communication Mode : Verbal Languages : Malaysian Is Patient Female and 13-50 no hysterectomy [...] Use/Advised to Quit : Yes LEONORA BARRIOS [facility] - 02/22/2017 10:19 CDT Caffeine Use Grid Caffeine Use : Current Type : Coffee, Soft drinks Frequency : Occasionally LEONORA BARRIOS [facility] - 02/22/2017 10:19 CDT Recreational Drug Use Grid Drug Use : None LEONORA BARRIOS [facility] - 02/22/2017 10:19 CDT Source: [facility] [employer] Mobile App Document Id: [id number] CDT!58 documented in this encounter Plan of Treatment Scheduled Procedures Name Priority Associated Diagnoses Date/Time COLONOSCOPY Diarrhea documented as of this encounter Visit Diagnoses Not on filedocumented in this encounter Additional Health Concerns Assessment Noted Time PHQ-9 Depression Total Score: 11 12/13/2014 9:50 AM CD T documented as of this encounter Care Teams Sky Diver Relationship Specialty Start Date End Date Catracho Bundy P.A.-C. PCP - General 02/04/17 04/26/19 documented as of this encounter
--- OUTSIDE RECORDS SUMMARY | 2022-07-03 10:40 | XMS_ITS | Encounter Summary ---
:[address] [facility] Address [address] [place] [address] Care Team Providers Name Role Phone Unavailable Primary Care Provider Unavailable Encounter Details Date Type Department Care Team Description 01/13/2017 Hospital Encounter [facility]X [facility] Leonora Melchor A PRN, C.N.P. [address] [place], [place] [phone] (Wo rk) Social History [...] How often do you attend uatsdin or muslim More than 4 time s [...] given to the patient: Patient Education Materials: Seo Analyst Adapting to : Second Trimester Seo Analyst Adapting to : Second Trimester Keep up [...] schedule. Try taking shorter breaks more often. [id number] You Travel The second trimester may be [...] smoke. ?? Dont breathe fumes from nail gabonese, hair spray, cleansers, or other chemicals. ?? [id number] [place] [address]. All rights reserved. This information is not intended as a substitute for professional medical care. Always follow your healthcare professional's instructions. This document has images extracted. Please consider using Plair for all your patient education needs. Source: [facility] POWERCHART Document Id: [id number] documented in this encounter Miscellaneous Notes Miscellaneous - Leonora Villaseñor R.N. - 01/13/2017 11:31 AM CDT Ambulatory Patient Summary [facility] [address] [place], [place] [id number] Visit Information Name: PUNEET COOLEY [facility] Number: [id number] Current Date: 01/13/2017 11:31:39 Physicians Attending Provider: LEONORA VILLASEÑOR R.N., [facility] Primary Care Provider: CATRACHO NAZARIO PA-C PUNEET [...] emergency. Electronically Signed By: LEONORA VILLASEÑOR R.N., [facility] Signed On:13-JAN-2017 11:31:37 Your Allergies & Intolerances Substance Reaction Symptoms Category Comments penicillins Drug Your Problem List Problem Status Onset Comments Headache Migraine Active 01/21/2012 Headache Active 10/24/2007 11/18/13 Headache Dysthymic Disorder Active 08/01/2010 11/18/13 Dysthymic disorder Abuse Tobacco Smoking NOS Active Body Mass Index (BMI) 50.0-59.9 Adult Active Active 10/03/2016 Your Upcoming Appointments Date Time Location Provider 02/11/2017 09:30 [facility] Ultrasound [facility] 1 02/11/2017 10:15 [facility] FIELD AGENT Marisol Irving CNP Attention: Contact your local [...] smoke. ?? Dont breathe fumes from nail gabonese, hair spray, cleansers, or other chemicals. ?? [phone] Cecil Paez, [address] [place] [address], [place] [address]. All rights reserved. This information is not [...] if you dont have one. Go to [email or web address] and click on Create Your Account. Then, follow the directions to complete the online form. Youll be asked for your [facility] number which you can find at the top of this document. Your Goals/Additional instructions: This document has images extracted. Please consider using Plair for all your patient education needs. Source: [facility] POWERCHART Document Id: [id number] Miscellaneous - Leonora Villaseñor R.N. - 01/13/2017 11:31 AM CDT Ambulatory Discharge Medication List [facility] [address], [address] [place], [place] [phone] Visit Information Name: COOLEYDORITAPUENETCARRIE ALVARADO [facility] Number: [id number] Current Date: 01/13/2017 11:31:38 Attending Provider: LEONORA VILLASEÑOR R.N., [facility] Primary Care Provider: CATRACHO NAZARIO PA-C DORITA [...] emergency. Electronically Signed By: LEONORA VILLASEÑOR R.N., [facility] Signed On:13-JAN-2017 11:31:37 Additional Information: Source: [facility] POWERCHART Document Id: [id number] Miscellaneous - Cleopatra Laguerre LBrittaneyP.N. 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 : No CLEOPATRA LAGUERRE LPN - 01/13/2017 10:18 CDT Subjective Pain Symptoms : No CLEOPATRA [facility]AGUERRE [facility] - 01/13/2017 10:18 CDT Dependent Habits Exposure to Tobacco Smoke : Patient smokes Smoking Status : Former smoker Tobacco 2A : Yes Tobacco Use/Currently Using : No Tobacco Use/Last 30 Days : No Tobacco Use/Last 12 months : Yes Tobacco Last Use/Month : November Tobacco Last Use/Year : 2016 Type : Other: quit 11/2016 CLEOPATRA LAGUERRE [facility] - 01/13/2017 10:18 CDT Caffeine Use Grid Caffeine Use : Current Type : Coffee, Soft drinks Frequency : Occasionally CLEOPATRA LAGUERRE [facility] 01/13/2017 10:18 CDT Recreational Drug Use Grid Drug Use : None CLEOPATRA LAGUERRE [facility] 01/13/2017 10:18 CDT Source: [employer] Document Id: [id number] CDT!42 documented in this encounter Plan of Treatment Scheduled Procedures Name Priority Associated Diagnoses Date/Time COLONOSCOPY Diarrhea documented as of this encounter Visit Diagnoses Not on filedocumented in this encounter Additional Health Concerns Assessment Noted Time PHQ-9 Depression Total Score: 11 12/13/2014 9:50 AM CD T documented as of this encounter
--- OUTSIDE RECORDS SUMMARY | 2022-07-03 10:40 | XMS_ITS | Encounter Summary ---
:1985 Author Organization [facility] Address [address] [place] [address] Care Team Providers Name Role Phone Catracho Bundy P.A.-C. Primary Care Provider Encounter Details Date Type Department Care Team Description 05/30/2017 Hospital Encounter HX [facility] OBSTETRICS Rai Landaverde M.D. [address] [place] [address] (Wo rk) Social History Tobacco [...] How often do you attend religious or yazdanism More than 4 time s [...] BERNAL RN - 05/30/2017 16:34 CDT Source: [facility] POWERCHART Document Id: [id number] CDT!19 Shiela Bernal R.N. - 05/30/2017 4:07 PM CDT Hospital Discharge Instructions [address] [id number] Patient Discharge Instructions Name: FORREST PUNEET CHRISTIANO Current Date: 05/30/2017 16:07:19 : 1985 12:00 AM [facility] Number: [id number] Patient Address: [address] [place] [id number] Patient Primary Care Provider: Name: CATRACHO NAZARIO Briana WHITING Discharge Diagnosis: [facility] would like to thank you for allowing [...] Appointments Date Time Location Provider 06/08/2017 09:00 [facility] GUM ROLLING MACHINE TENDER Jean Paul MONTEMAYOR, Leonora Bustillos Consider Using [...] if you dont have one. Go to [facility] [email or web address] and click on Create Your Account. Then, follow the directions to complete the online form. Youll be asked for your [facility] number which you can find [...] will start right away. You may feel [place] contractions (false labor). These irregular contractions start to soften and thin the cervix. Many women mistake these contractions for true labor. They may be more noticable towards the end of the day. Feeling like the baby has dropped lower. In preparation for , the baby's head has settled deep into your pelvis. ?? [phone] [facility], [address] [place] [address], [place] [address]. All rights reserved. This information is not [...] felt your baby move all day. ?? [phone] Cecil [facility], [address] [place] [address], [place] [address]. All rights reserved. This information is not intended as a substitute for professional medical care. Always follow your healthcare professional's instructions. This document has images extracted. Please consider using FanBread for all your patient education needs. Source: [facility] POWERCHART Document Id: [id number] Shiela Bernal R.N. - 05/30/2017 4:07 PM CDT Hospital Discharge Medication List [address] [address] Discharge Medication List Name: PUNEET CLAYTON Current Date: 05/30/2017 16:07:18 : 1985 12:00 AM [facility] Number: [id number] Patient Address: [address] [place] [phone] Patient Primary Care Provider: Name: CATRACHO NAZARIO PA-C Discharge Diagnosis: [facility] [place] would like to thank you for allowing [...] Comment: Electronically Signed By: Signed On: Source: [facility] [employer] Document Id: [id number] documented in this encounter Medications at Time [...] ASHLEY RN - 05/30/2017 16:28 CDT Source: [facility] [employer] Document Id: [id number] CDT!3 Shiela Bernal R.N. - 05/30/2017 3:45 PM CDT Ongoing Assessment Antepartum Ongoing Assessment Antepartum Entered On: 05/30/2017 16:31 CDT Performed On: 05/30/2017 15:45 CDT by SHIELA BERNAL paper bags sewing machine operator Chief Complaint : decreased movement last few [...] Yes/No : No Nail Bed Color : [place] Capillary Refill : Less than 2 seconds [...] None SHIELA BERNAL RN 05/30/2017 16:29 CDT [place] Coma Eye Opening Response Jenise : Spontaneously Best Verbal Response [place] : Oriented Best Motor Response [place] : Obeys simple commands [place] Coma Score : 15 SHIELA BERNAL RN [...] Integrity : Intact Mucous Membrane Color : [place] Mucous Membrane Description : Moist Skin Color [...] BERNAL RN - 05/30/2017 16:29 CDT Source: [employer] Document Id: [id number] CDT!107 documented in this encounter Miscellaneous Notes Miscellaneous - Conversion, Historical Provider Ser - 05/30/2017 4:15 PM CDT Coding Summary-Paper Based CODING DATE: 05/31/[address] [facility] STATUS: * Discharged to Home or [...] ROLDAN Date Saved: 05/31/2017 10:39 am Source: [facility] Document Id: [id number] documented in this encounter Plan of Treatment Scheduled Procedures Name Priority Associated Diagnoses Date/Time COLONOSCOPY Diarrhea documented as of this encounter Visit Diagnoses Not on filedocumented in this encounter Additional Health Concerns Assessment Noted Time PHQ-9 Depression Total Score: 7 04/07/2017 9:39 AM CDT documented as of this encounter Care Teams Rehab Aide Relationship Specialty Start Date End Date Catracho Bundy P.A.-C. PCP - General 02/04/17 04/26/19 documented as of this encounter
--- OUTSIDE RECORDS SUMMARY | 2022-07-03 10:40 | XMS_ITS | Encounter Summary ---
:1985 Author Organization [facility] Address [address] [place] [address] Care Team Providers Name Role Phone Unavailable Primary Care Provider Unavailable Encounter Details Date Type Department Care Team Description 11/05/[address] [facility] ENT Venu Nguyen M.D. [address] [place], [place] [phone] (Wo rk) Social History [...] How often do you attend hoahaoism or sikhism More than 4 time s [...] Nguyen M.D. - 11/05/2016 12:13 PM CDT [id number] Ms. Cooley is a pleasant 30-year-old accompanied [...] than a pack per week. Works at [employer] [facility] [email or web address]. PHYSICAL EXAMINATION GENERAL: Appears well, no distress. [...] 61, I am not sure proceeding in [place] would even be an option. She will [...] Venu Nguyen M.D./robb cc: Blaire Thornton P.A.-C. [facility] in [address] [place] [address] Electronically Signed By: VENU NGUYEN MD On: 12/01/2016 01:38 PM Source: [facility] MHSDOLBEYNONRADSYS Document Id: [id number] documented in this encounter Miscellaneous Notes Miscellaneous - Madhavi Addison R.N. - 11/05/2016 12:26 PM CDT Adult Family Service Center Director Intake/History Adult Family Service Center Director Intake/History Entered On: 11/05/2016 12:30 CDT Performed On: 11/05/2016 12:26 CDT by MADHAVI ADDISON forestry support specialist Chief Complaint : chronic sore throat, large [...] 11/05/2016 12:26 CDT General Info Languages : Israeli Is Patient Female and 13-50 no hysterectomy [...] ADDISON RN - 11/05/2016 12:26 CDT [facility] Document Id: [id number] CDT!44 documented in this encounter Plan of Treatment Scheduled Procedures Name Priority Associated Diagnoses Date/Time COLONOSCOPY Diarrhea documented as of this encounter Procedures Procedure Name Priority Date/Time Associated Diagnosis Comme nts RAPID STREP A Routine 11/16/2016 10:12 AM Results for this SCREEN CDT procedure are i n the results section. documented in this encounter Results Rapid Strep A Screen (11/16/2016 10:12 AM CDT) [facility] Method Time Signature HXStrep A POWERCHART Screen [...]
--- OUTSIDE RECORDS SUMMARY | 2022-07-03 10:40 | XMS_ITS | Encounter Summary ---
:1985 Author Organization [facility] Address [address] [place] [address] Care Team Providers Name Role Phone Blaire Bundy P.A.-C. Primary Care Provider Encounter Details Date Type Department Care Team Description 02/11/2017 Hospital Encounter HX [facility] Marisol Irving APRN, C.N.P. [address] [place] [address] (Wo rk) Social History Tobacco [...] How often do you attend restorationist or oriental orthodox More than 4 time [...] Coding Summary-Paper Based CODING DATE: 02/16/2017 FINAL [facility] STATUS: * Discharged to Home [...] ROLDAN Date Saved: 02/16/2017 11:30 am Source: [facility] POWERCHART Document Id: [id number] Miscellaneous - Marisol Irving CBrittaneyN.P., R.N. - 02/11/2017 4:33 PM CDT Addendum by SOCORRO MARK on February 12, 2017 11:37:11 CDT From: SOCORRO MARK ( Obstetrics/Gynecology Social Science Research Assistant) To: PUNEET CLAYTON Sent: 02/12/2017 11:37:11 CDT [...] From: MARISOL IRVING CNP, RN To: Obstetrics/Gynecology Social Science Research Assistant; PUNEET CLAYTON Sent: 02/11/2017 16:33:06 CDT Puneet, [...] scheduled with your next appointment. Marisol Source: [facility] POWERCHART Document Id: [id number] Electronically signed by Roland, [facility] Parts Control Clerk [id number] at 02/24/2017 11:29 AM CDT documented in this encounter Plan of Treatment Scheduled Procedures Name Priority Associated Diagnoses Date/Time COLONOSCOPY Diarrhea documented as of this encounter Visit Diagnoses Not on filedocumented in this encounter Additional Health Concerns Assessment Noted Time PHQ-9 Depression Total Score: 11 12/13/2014 9:50 AM CD T documented as of this encounter Care Teams Scrap Hooker Relationship Specialty Start Date End Date Blaire Bundy P.A.-C. PCP - General 02/04/17 04/26/19 documented as of this encounter
--- OUTSIDE RECORDS SUMMARY | 2022-07-03 10:40 | XMS_ITS | Encounter Summary ---
:1985 Author Organization [facility] Address [address] [place] [address] Care Team Providers Name Role Phone Unavailable Primary Care Provider Unavailable Encounter Details Date Type Department Care Team Description 11/24/2016 Hospital Encounter HX [facility] Marisol Lopez APRN, C.N.P. [address] [place] [address] (Wo rk) Social History Tobacco [...] How often do you attend yarsani or temple More than 4 time s [...] Coding Summary-Paper Based CODING DATE: 11/27/2016 FINAL [facility] STATUS: * Discharged to Home or Self Care [facility]: REASON FOR VISIT DX: FINAL [...] ROLDAN Date Saved: 11/27/2016 10:20 am Source: [employer] Document Id: [id number] Miscellaneous - Leonora Villaseñor RBrittaneyN. - 11/24/2016 12:58 PM CDT From: LEONORA VILLASEÑOR CNP, RN Sent: 11/24/2016 12:58:55 CDT patient notified of ultrasound results. she will schedule new ob visit as soon as she is able. Source: [employer] Document Id: [id number] Electronically signed by [facility] Room Service Manager [id number] at 02/02/2017 6:27 AM CDT documented in this encounter Plan of Treatment Scheduled Procedures Name Priority Associated Diagnoses Date/Time COLONOSCOPY Diarrhea documented as of this encounter Visit Diagnoses Not on filedocumented in this encounter Additional Health Concerns Assessment Noted Time PHQ-9 Depression Total Score: 11 12/13/2014 9:50 AM CD T documented as of this encounter
--- OUTSIDE RECORDS SUMMARY | 2022-07-03 10:40 | XMS_ITS | Encounter Summary ---
:1985 Author Organization [facility] Address [address] [place] [address] Care Team Providers Name Role Phone Blaire [...] How often do you attend mosque or episcopal More than 4 time s [...] Organization Address City/State/ZIP Code Phon e Number IIDC IIDC NA documented in this encounter Visit Diagnoses Not on filedocumented in this encounter Additional Health Concerns Assessment Noted Time PHQ-9 Depression Total Score: 7 04/07/2017 9:39 AM CDT documented as of this encounter Care Teams Online Advertising Manager Relationship Specialty Start Date End Date Blaire Bundy P.A.-C. PCP - General 02/04/17 04/26/19 documented as of this encounter
--- OUTSIDE RECORDS SUMMARY | 2022-07-03 10:40 | XMS_ITS | Encounter Summary ---
:1985 Author Organization [facility] Address [address] [place] [address] Care Team Providers Name Role Phone Unavailable Primary Care Provider Unavailable Encounter Details Date Type Department Care Team Description 11/06/2016 Hospital Encounter [facility]X [facility] Leonora Melchor A PRN, C.N.P. [address] [place], [place] [address] (Wo rk) Social History [...] How often do you attend religious or synagogue More than 4 time s [...] confirmation of due to + test at [facility]. She is , they have a [...] NIL G1: 1 FT Date: 01-03-2008. Location [place]. weight 7#13oz Complications high blood pressure Delivery [...] BMI 59. We discussed care here at [facility] or [place], [place]. 3) smoker, quitting. Electronically Signed By: LEONORA VILLASEÑOR CNP, RN On: 11/06/2016 12:06 PM Modified by and Electronically Signed by: LEONORA VILLASEÑOR CNP, RN On: 11/06/2016 10:46 AM Source: [facility] POWERCHART Document Id: [id number] documented in this encounter Miscellaneous Notes Miscellaneous - Leonora Villaseñor R.N. - 11/06/2016 12:02 PM CDT Ambulatory Discharge Medication List [facility] [address] [place], [address] [place], [place] [phone] Visit Information Name: PUNEET COOLEY [facility] Number: [id number] Current Date: 11/06/2016 12:02:18 Attending Provider: LEONORA VILLASEÑOR CNP claim processing specialist Provider: CATRACHO NAZARIO PA-C PUNEET COOLEY has [...] RN Signed On:06-NOV-2016 12:02:17 Additional Information: Source: [facility] POWERCHART Document Id: [id number] Miscellaneous - Leonora Villaseñor RMarcos. - 11/06/2016 12:02 PM CDT Ambulatory Patient Summary [facility] [address], [address] [place], [place] [phone] Visit Information Name: PUNEET COOLEY [facility] Number: [id number] Current Date: 11/06/2016 12:02:19 [...] if you dont have one. Go to [email or web address] and click on Create Your Account. Then, follow the directions to complete the online form. Youll be asked for your [facility] number which you can find at the top of this document. Your Goals/Additional instructions: Source: [facility] POWERCHART Document Id: [id number] Miscellaneous - Maurice Dozier L.PBrittaneyN. 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 Date : 10/03/2016 Systolic Blood Pressure [...] 11/06/2016 9:09 CDT General Info Languages : Iraqi Is Patient Female and 13-50 no hysterectomy [...] DOZIER LPN - 11/06/2016 9:09 CDT [facility]: [facility] Document Id: [id number] CDT!39 Miscellaneous - Maurice Dozier L.P.NBrittaney - [...] Alcohol Use : No DOZIER, MAURICE Maureen [facility] - 11/06/2016 9:08 CDT Caffeine Use Grid Caffeine Use : Current Type : Coffee, Soft drinks Frequency : Occasionally MAURICE DOZIER [facility] - 11/06/2016 9:08 CDT Recreational Drug Use Grid Drug Use : None SUKH DOZIERFER Maureen [facility] - 11/06/2016 9:08 CDT Psychosocial Domestic Abuse Concerns : None Behavioral Health Screen/Safety Assmt : Unable to obtain Congregational Preference : No qualifying data available. MAURICE DOZIER [facility] 11/06/2016 9:08 CDT Advance Directive Advanced Directives : No Advance Directive Additional Information : No MAURICE DOZIER [facility] 11/06/2016 9:08 CDT Educ Needs Learning Style Preference Adult Grid Patient : None Family : None MAURICE DOZIER [facility] 11/06/2016 9:08 CDT Source: [facility] POWERCHART Document Id: [id number] CDT!37 documented in this encounter Plan of [...]
--- OUTSIDE RECORDS SUMMARY | 2022-07-03 10:40 | XMS_ITS | Encounter Summary ---
:1985 Author Organization [facility] Address [address] [place] [address] Care Team Providers Name Role Phone Catracho Bundy P.A.-C. Primary Care Provider [phone] Encounter Details Date Type Department Care Team Description 06/08/[address] [facility] Leonora Melchor, Maureen TARIQ, C.N.P. [address] [place], [place] [phone] (Wo rk) Social History [...] How often do you attend rastafari or latter day More than 4 time [...] status: none position: vertex via ultrasound in indian[place]. Electronically Signed By: LEONORA VILLASEÑOR R.N., WHNP-BC On: 06/08/2017 09:29 AM Source: [employer] POWERCHART Document Id: [id number] documented in this encounter Nursing Notes VoCleopatra corona L.P.N. - 06/08/2017 9:02 AM CDT Ambulatory Patient Education The following Patient Education Materials have been given to the patient: Patient Education Materials: Gas Brazer What Is Group B Strep? Gas Brazer What Is Group B Strep? Group B [...] with a group B strep infection ?? [phone] Cecil [facility], [address] [place] [address], [place] [address]. All rights reserved. This information is not intended as a substitute for professional medical care. Always follow your healthcare professional's instructions. This document has images extracted. Please consider using Last Second Tickets for all your patient education needs. Source: [employer] POWERCHART Document Id: [id number] documented in this encounter Miscellaneous Notes Miscellaneous - Leonora Villaseñor R.N., WHNP-BC - 06/08/2017 9:39 AM CDT Ambulatory Discharge Medication List [address] [facility] [address] [place], [place] [phone] Visit Information Name: PUNEET COOLEY [facility] Number: [id number] Current Date: 06/08/2017 09:39:23 Attending Provider: LEONORA VILLASEÑOR R.N., [facility] Primary Care Provider: CATRACHO NAZARIO PA-C [...] WHNP-BC Signed On:08-JUN-2017 09:39:20 Additional Information: Source: [employer] POWERCHART Document Id: [id number] Miscellaneous - Leonora Villaseñor R.N., WHNP-BC - 06/08/2017 9:39 AM CDT Ambulatory Patient Summary [facility] [address], [address] [place], [place] [phone] Visit Information Name: PUNEET COOLEY [facility] Number: [id number] Current Date: 06/08/2017 09:39:23 Physicians [...] with a group B strep infection ?? [phone] [place] [address]. All rights reserved. This information is not [...] if you dont have one. Go to [email or web address] and click on Create Your Account. Then, follow the directions to complete the online form. Youll be asked for your [facility] number which you can find at the top of this document. Your Goals/Additional instructions: This document has images extracted. Please consider using Last Second [employer] for all your patient education needs. Source: [employer] POWERCHART Document Id: [id number] Miscellaneous - Cleopatra Laguerre L.P.N. - 06/08/2017 9:05 AM CDT Adult Application Designer Intake/History Adult Application Designer Intake/History Entered On: 06/08/2017 9:10 CDT Performed [...] Information Given By : Patient Languages : Icelandic Is Patient Female and 13-50 no hysterectomy [...] LAGUERRE LPN - 06/08/2017 9:05 CDT [facility] POWERCHART Document Id: [id number] CDT!50 documented in this encounter Plan of Treatment Scheduled Procedures Name Priority Associated Diagnoses Date/Time COLONOSCOPY Diarrhea documented as of this encounter Visit Diagnoses Not on filedocumented in this encounter Additional Health Concerns Assessment Noted Time PHQ-9 Depression Total Score: 7 04/07/2017 9:39 AM CDT documented as of this encounter Care Teams Sales Data Analyst Relationship Specialty Start Date End Date Catracho Bundy P.A.-C. PCP - General 02/04/17 04/26/19 documented as of this encounter
--- OUTSIDE RECORDS SUMMARY | 2022-07-03 10:40 | XMS_ITS | Encounter Summary ---
:1985 Author Organization [facility] Address [address] [place] [address] Care Team Providers Name Role Phone Unavailable Primary Care Provider Unavailable Encounter Details Date Type Department Care Team Description 12/09/2016 Hospital Encounter HX [facility] Rabia Melchor A PRN, C.N.P. [address] [place], [place] [phone] (Wo rk) Social History [...] How often do you attend sabianist or shinto More than 4 time s [...] oxygen. G1: 1 FT Date: 01-03-2008. Location [place]. weight 7#13oz Complications high blood pressure Delivery [...] Found Sexual history Brendon, . 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 Corporate Ethics Officer: Normal external genitalia. 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 Genetic testing and screening options discussed, booklet given. She is not interested in meeting with a genetic specialist or partner screening at this time. 6) BMI 59. planning delivery at [facility]. will plan for shared care. undecided on where anatomy scan ultrasound will be, here or at [facility]. 7) smoker, quitting. down to 1-2 cigs/week Referrals: _ Electronically Signed By: RABIA REAVES CNP, RN On: 12/09/2016 10:02 AM Modified by and Electronically Signed by: RABIA REAVES CNP RN On: 12/09/2016 10:02 AM Source: [facility] POWERCHART Document Id: [id number] documented in this encounter Nursing Notes Dawna [...] Medical ; Code: 305.1 ; Contributor System: OnBeep ; Last Updated: 12/12/2014 9:21 CDT ; [...] Medical ; Code: 784.0 ; Contributor System: KeradermChart ; Last Updated: 12/12/2014 9:11 CDT ; [...] RABIA HOLMAN MD; Vocabulary: ICD-9-CM (SNOMED CT :480791698 ) Name of Problem: ; Onset Date: 10/03/2016 ; Recorder: DAWNA MADERA L.P.N.; Confirmation: Confirmed ; Classification: Medical ; Code: 472727974 ; Last Updated: 12/09/2016 8:32 CDT ; Life Cycle Status: Active ; Responsible Provider: DAWNA MADERA L.P.N.; Vocabulary: SNOMED CT Diagnoses(Active) Date: 12/09/2016 ; Confirmation: Confirmed ; Clinical Dx: ; Classification: Medical ; Code: SNOMED CT ; Probability: 0 ; Diagnosis Code: 405188081 - Procedure History (As Of: 12/09/2016 09:09:45 [...] Medical ; Code: 346.90 ; Contributor System: OnBeep ; Last Updated: 12/12/2014 9:11 CDT ; Life Cycle Status: Active ; Responsible Provider: RABIA HOLMAN MD; Vocabulary: ICD-9-CM Headache Name of Problem: Headache ; Onset Date: 10/24/2007 ; Confirmation: Confirmed ; Classification: Medical ; Code: 784.0 ; Contributor System: KeradermChart ; Last Updated: 12/12/2014 9:11 CDT ; LifeCycle Status: Active ; Vocabulary: ICD-9-CM ; Comments: - Headache Dysthymic Disorder Name of Problem: Dysthymic Disorder ; Onset Date: 08/01/2010 ; Confirmation: Confirmed ; Classification: Medical ; Code: 300.4 ; Contributor System: KeradermChart ; Last Updated: 12/12/2014 9:11 CDT ; Life Cycle Status: Active ; Vocabulary: ICD-9-CM ; Comments: - Dysthymic disorder Name of Problem: ; Recorder: NICHOLE ADDISON; Confirmation: Confirmed ; Classification: Medical ; Code: 326050102 ; Last Updated: 12/12/2014 9:12 CDT ; [...] Comments: 03/13/2014 13:47 - JORY COPPOLA F PLANNING LEAD brain cancer ; Value: Positive Grandfather: maternal Full Name: maternal ; Relation: Grandfather ; Nomenclature: Cancer ; Comments: 03/13/2014 13:47 - PLEINSTEPHANIEY F PLANNING LEAD larynx ; Value: Positive Grandmother: maternal Full Name: maternal ; Relation: Grandmother ; Nomenclature: Cancer ; Comments: 03/13/2014 13:47 - PLEIN JORY F PLANNING LEAD ear ; Value: Positive Anesth/Transfusion Transfusion Acceptable [...] None Behavioral Health Screen/Safety Assmt : No Sikhism Preference : No qualifying data available. DAWNA [...] CNP, SHRUTHI - 12/09/2016 10:03 CDT Source: [facility] POWERCHART Document Id: [id number] CDT!27 documented in this encounter Miscellaneous Notes Miscellaneous - Rabia Reaves R.N., [facility]- - 05/20/2017 9:10 AM CDT RE: From: RABIA REAVES R.N. [facility] To: PUNEET CLAYTON Sent: 05/20/2017 09:10:24 [...] From: PUNEET CLAYTON To: RABIA REAVES R.N. [facility] Sent: 05/19/2017 4:41:33 PM ([facility]-06:00) Central Time ([place] & [place]) Subject: RE: Should it hurt to walk though and when I move? From: RABIA REAVES R.N. [facility] To: PUNEET CLAYTON Sent: 05/19/2017 16:18:07 CDT Subject: RE: As you get closer to the end of the , it is not uncommon to have increased pelvic or vaginal pressure. If you have noticed a significant change in how you feel though, you should come in to beseen. From: PUNEET CLAYTON To: RABIA REAVES R.N. [facility] Sent: 05/19/2017 12:08:54 PM ([facility]-06:00) Central Time ([place] & [place]) Subject: RE: [...] questions. have a good day! Rabia Source: [facility] POWERCHART Document Id: [id number] Miscellaneous - Rabia [facility]aves R.N., [facility] - 05/19/2017 4:18 PM CDT RE: From: RABIA REAVES R.N. [facility] To: PUNEET CLAYTON Sent: 05/19/2017 16:18:07 CDT Subject: RE: As you get closer to the end of the , it is not uncommon to have increased pelvic or vaginal pressure. If you have noticed a significant change in how you feel though, you should come in to beseen. From: PUNEET CLAYTON To: RABIA REAVES R.N. [facility] Sent: 05/19/2017 12:08:54 PM ([facility]-06:00) Central Time ([place] & [place]) Subject: RE: [...] questions. have a good day! Rabia [facility] Document Id: [id number] Miscellaneous - Rabia Reaves R.N. - 12/15/2016 [...] questions. have a good day! Rabia Source: [employer] Document Id: [id number] Leilani - Rabia Reaves R.N. - 12/11/2016 [...] x10(9)/L (150 - 450) 12/09/2016 10:15 Syphilis IgG-[place] Negative (Negative - ) 12/09/2016 10:15 HIV 1/2 Ab and Ag Scrn-[place] Negative (Negative - ) 12/09/2016 10:15 Rubella IgG-[place] Equivocal 12/09/2016 10:15 Rubella IgG Ab Index-[place] 0.9 12/09/2016 10:15 Hep Bs Ag-[place] Negative (Negative - ) 12/09/2016 09:45 C trach Amp Src-[facility] vagina 12/09/2016 09:45 C trach Amp RNA-[place] Negative (Negative - ) 12/09/2016 09:45 N gonor Amp DNA-[place] Negative (Negative - ) 12/09/2016 09:45 N gonor Amp Src-[place] vagina 12/09/2016 09:45 UA Color Yellow (Colorless [...] (*) Present (None Seen - ) Source: [facility] Document Id: [id number] Electronically signed by Conversion, [facility] Sander Stone [id number] at 02/02/2017 12:38 PM CDT Miscellaneous - Rabia Reaves R.N. - 12/11/2016 1:15 PM CDT Normal Results Letter December 11, 2016 PUNEET CLAYTON [address] [facility] [id number] Dear PUNEET CLAYTON, Your Pap was normal. Your next pap is due in 3 yrs. Please contact me if you have any questions. Result Name Current Result BEAMER HELPER Cytology 12/09/2016 Sincerely, RABIA REAVES [address] [place] [address] Electronic Signature Electronically Signed By: RABIA REAVES CNP, RN On: December 11, 2016 This document has images extracted. Source: [facility] [employer] Document Id: [id number] Miscellaneous - Rabia Reaves, R.N. - 12/09/2016 10:04 AM CDT Ambulatory Patient Summary [facility] [address] [place], [address] [place], [place] [phone] Visit Information Name: FORREST PUNEET ALVARADO [facility] Number: [id number] Current Date: 12/09/2016 10:04:46 Physicians Attending Provider: RABIA REAVES CNP, director digital catalogue Provider: CATRACHO NAZARIO PA-C PUNEET CLAYTON has [...] if you dont have one. Go to [email or web address] and click on Create Your Account. Then, follow the directions to complete the online form. Youll be asked for your [facility] number which you can find at the top of this document. Your Goals/Additional instructions: Source: [facility] POWERCHART Document Id: [id number] Leilani - Rabia Reaevs R.N. - 12/09/2016 10:04 AM CDT Ambulatory Discharge Medication List [facility] [address], [address] [place], [place] [phone] Visit Information Name: PUNEET CLAYTON [facility] Number: [id number] Current Date: 12/09/2016 10:04:45 Attending Provider: RABIA REAVES CNP, director digital catalogue Provider: CATRACHO NAZARIO PA-C PUNEET CLAYTON has [...] RN Signed On:09-DEC-2016 10:04:43 Additional Information: Source: [facility] POWERCHART Document Id: [id number] Leilani - Alison Monsivais L.P.N. - 12/09/2016 9:48 AM CDT Fringe Maker Documentation Fringe Maker Documentation Entered On: 12/09/2016 9:48 CDT Performed On: 12/09/2016 9:48 CDT by ALISON MONSIVAIS LPN Fringe Maker Documentation Exam/Procedure Performed : pelvic CD Fringe Maker Present : Yes CD Fringe Maker Name : ALISON Randall LPN - 12/09/2016 9:48 CDT Source: [facility] POWERCHART Document Id: [id number] CDT!5 documented in this encounter Plan of [...] procedure are in the results section. PATHOLOGY BEAMER HELPER Routine 12/09/2016 9:37 AM Results for this CYTOLOGY CDT procedure are i n the results section. documented in this encounter Results CBC without Differential (12/09/2016 10:15 AM CDT) P athologist Signature Leukocytes 7.7 3.5 - 10.5 POWERCHART X109L Erythrocytes 4.88 3.90 - 5.03 POWERCHART I8599K Hemoglobin 13.7 12.0 - 15.5 POWERCHART GDL [...] exposure to syp hilis. Test Performed by: [facility] [address] [place] [address] Specimen (Source) Anatomical Collection Method Collection Time Re ceived Time Location / / Volume Laterality Blood 12/09/2016 10:15 AM CDT Rabia Reaves APRN, C.N.P. LAB BLOOD ADD-ON Performing Organization Address City/[facility]/ZIP Code Phon e Number POWERCHART Rubella Antibodies, IgG (12/09/2016 10:15 AM CDT) Analysis Performed At Patho logist Time Signature HX Rubella Equivocal POWERCHART IgG-[place] Comment: Recommend follow-up testing in 10-14 day s if clinically indicated. REFERENCE VALUE------ Vaccinated: Positive (>=1.0 AI) Unvaccinated: Negative (<=0.7 AI) Rubella IgG Antibody Index 0.9 POW ERCHART Comment: Test Performed by: [facility] [address] [place] [address] Specimen (Source) Anatomical Collection Method Collection Time Re ceived Time Location / / Volume Laterality Blood 12/09/2016 10:15 AM CDT Rabia Reaves APRN C.N.P. LAB MICROBIOLOGY - BLOOD ORD ERABLES Performing Organization Address City/[facility] Code Phon e Number POWERCHART HIV-1/-2 Ag and Ab Screen (12/09/2016 10:15 AM CDT) athologist Signature HIV-1/-2 Negative Negative POWERCHART Antibody Comment: Negative result does not rule out HIV in fection. If acute HIV infection is suspected in a hi gh-risk individual, submit plasma specimen for H IV-1 RNA quantification test (HIVDQ) and/or HIV-2 DNA/RNA test (FHV2Q). [facility] [address] [address] Specimen (Source) Anatomical Collection Method Collection Time Re ceived Time Location / / Volume Laterality Blood 12/09/2016 10:15 AM CDT Rabia Reaves APRN, C.N.P. LAB MICROBIOLOGY - BLOOD ORD ERABLES Performing Organization Address City/[facility]/ZIP Code Phon e Number POWERCHART Hepatitis B Surface Antigen (12/09/2016 10:15 AM CDT) P athologist Signature HBs Antigen, S Negative Negative POWERCHART Comment: Test Performed by: [facility] [address] [place] [address] Specimen (Source) Anatomical Collection Method Collection Time [...] POWERCHART ABSC GEL (12/09/2016 10:15 AM CDT) [facility] gist Method Time Signature HX ABSC Gel Negative ABSC POWERCHART Specimen (Source) Anatomical Collection Method Collection Time Re ceived Time Location / / Volume Laterality 12/09/2016 10:15 AM CDT Rabia Reaves APRN, C.N.P. LAB HISTORICAL ORDERS Performing Organization Address City/[facility]/ZIP Code Phon e Number POWERCHART ABO/Rh (12/09/2016 10:15 AM CDT) P athologist Signature ABORh Interp A NEG POWERCHART Specimen (Source) Anatomical Collection Method Collection Time Re ceived Time Location / / Volume Laterality 12/09/2016 10:15 AM CDT Kendal Erazo APRNNJud LAB BLOOD BANK TEST ORDERABL ES Performing Organization Address [facility]/ZIP Code Phon e Number POWERCHART HX-N gonor Amp DNA (12/09/2016 9:45 AM CDT) P athologist Signature HXN gonor Amp Negative POWERCHART [facility] Specimen (Source) Anatomical Collection Method Collection Time Re ceived Time Location / / Volume Laterality 12/09/2016 9:45 AM CDT Narrative POWERCHART - 12/10/2016 4:54 PM CDT ADDITIONAL INFORMATION This report is intended for use in clini huma monitoring and management of patients. It is not in tended for use in medical-legal applications. Test Performed by: [facility] [place] [address] Kendal Erazo APRNN.P. LAB HISTORICAL ORDERS Performing Organization Address City/State/ZIP Code Phon e Number POWERCHART HX-N gonor Amp Src (12/09/2016 9:45 AM CDT) P athologist Signature HXN gonor Amp vagina POWERCHART Src-[place] Specimen (Source) Anatomical Collection Method Collection Time Re ceived Time Location / / Volume Laterality 12/09/2016 9:45 AM CDT Kendal Erazo APRNN.P. LAB HISTORICAL ORDERS Performing Organization Address City/[facility]/ZIP Code Phon e Number POWERCHART HX-C trach Amp RNA (12/09/2016 9:45 AM CDT) [facility] gist Method Time Signature Chlamydia Negative POWERCHART [...] APRNN.P. LAB HISTORICAL ORDERS Performing Organization Address City/[facility]/ZIP Code Phon e Number POWERCHART HX-C trach Amp Src (12/09/2016 9:45 AM CDT) P athologist Signature HXC trach Amp vagina POWERCHART Src-[place] Specimen (Source) Anatomical Collection Method Collection Time Re ceived Time Location / / Volume Laterality 12/09/2016 9:45 AM CDT Marlyn Erazo APRN.N.P. LAB HISTORICAL ORDERS Performing Organization Address City/[facility]/ZIP Code Phon e Number POWERCHART (ABNORMAL) Bacterial Culture, Aerobic, Urine (12/09/2016 9:45 AM CDT) Patholo gist Method Time Signature Bacterial EC Susceptibl POWERCHART Culture, (POSITIVE) Aerobic, Urine HXPre URINE, CLEAN POWERCHART VOID HXPre Pending POWERCHART HXPre Pending-[facility] [address] [place] [address] Comment: URINE, CLEAN VOID Pending Pending-[facility] [address] [place] [place] [address] HXPre URINE, CLEAN VOID POWERCHART HXPre >[id number] COL/ML ESCHERICHIA COLI POWERCHART HXPre >057248 COL/ML MULTIPLE ORGANISMS SUGGESTING PROBABLE POWERCHART CONTAMINATION HXPre PRELIMINARY, FINAL RESULT TO FOLLOW POWERCHART HXPre Pending-[facility] POWERCHART [address] [place] [address] Comment: URINE, CLEAN VOID >[id number] COL/ML ESCHERICHIA COLI >701219 COL/ML MULTIPLE ORGANISMS SUGGES TING PROBABLE CONTAMINATION PRELIMINARY, FINAL RESULT TO FOLLOW Pending-[facility] [address] [place] [place] [address] HXFinal EC POWERCHART Comment: URINE, CLEAN VOID >411393 COL/ML ESCHERICHIA COLI >346128 COL/ML MULTIPLE ORGANISMS SUGGES TING PROBABLE CONTAMINATION FINAL 12/12/2016-[facility] [address] [place] [place] [address] Escherichia coli Specimen (Source) Anatomical Collection Method [...] Complete, Includes Microscopic (12/09/2016 9:45 AM CDT) [facility] gist Method Time Signature HXUr Color Yellow [...] Leukocyte Esterase Large (A) Negative POWERCHART Specific Stryker, POCT, U 1.021 ELANA RCHART Comment: Reference Range Specific Stryker: 1.000-1.035 HXUR WBC. 4-10 None Seen HPF [...] C.N.P. LAB URINE ORDERABLES Performing Organization Address [facility] Phon e Number POWERCHART Pathology BEAMER HELPER Cytology (12/09/2016 9:37 AM CDT) Specimen (Source) Anatomical Collection Method Collection Time Re ceived Time Location / / Volume Laterality 12/09/2016 9:37 AM CDT Narrative LUZ ELENA MAXWELL - 12/11/2016 11:20 AM CD T Pat: PUNEET CLAYTON ?([id number]) Age/Sex: 30 ??F ??Loc: ? -00 (RWN ) CoPath ??LIUDMILA: 12/09/16 09:37 ??REC: 16:00 ??PHYS: , Cytology ?ThinPrep cervical/endocerv Patient Name: PUNEET CLAYTON MR#: [id number] Submitting Physician: RABIA REAVES TARE WORKER ??[id number] Specimen #[id number] Performing Lab: ??[address] [address] CLINICAL HISTORY: Last menstrual period: Status: Specimen [...]
--- OUTSIDE RECORDS SUMMARY | 2022-07-03 10:40 | XMS_ITS | Encounter Summary ---
:1985 Author Organization [facility] Address [address] [place] [address] Care Team Providers Name Role Phone Unavailable Primary Care Provider Unavailable Encounter Details Date Type Department Care Team Description 11/16/2016 Hospital Encounter HX [facility] Keith Nguyen M.D. [address] [place] [address] (Wo rk) Social History Tobacco [...] How often do you attend yarsani or protestant More than 4 time s [...] Name MBO Review Rapid Strep A Source: [facility] [employer] Document Id: [id number] Electronically signed by Conversion, [facility] Senior Business Process Analyst [id number] at 02/02/2017 2:11 AM CDT documented in [...] Strep A Screen (11/16/2016 9:30 AM CDT) [facility] Method Time Signature HXRapid Strep POWERCHART Confirmation HXPre Pending POWERCHART HXFinal NEG POWERCHART HXFinal [facility] [address] Specimen Anatomical Collection Method Collection Time Receive d Time (Source) Location / / Volume Laterality Throat 11/16/2016 9:30 AM 03/27/201 7 9:30 CDT AM CDT Keith gNuyen M.D. LAB MICROBIOLOGY - GENERAL O BOBBY Performing Organization Address City/State/ZIP Code Phon e Number POWERCHART Rapid Strep A Screen (11/16/2016 9:30 AM CDT) [facility] Method Time Signature HXStrep A POWERCHART Screen Rapid HXFinal Negative for POWERCHART Strep Group A by rapid screen. HXFinal Culture POWERCHART confirmation to follow. Specimen (Source) Anatomical Collection Method Collection Time Re ceived Time Location / / Volume Laterality Throat 11/16/2016 9:30 AM CDT Keith Nguyen M.D. LAB MICROBIOLOGY - GENERAL O BOBBY Performing Organization Address City/State/[facility] Code Phon e Number POWERCHART documented in this encounter Visit Diagnoses Not on filedocumented in this encounter Additional Health Concerns Assessment Noted Time PHQ-9 Depression Total Score: 11 12/13/2014 9:50 AM CD T documented as of this encounter
--- OUTSIDE RECORDS SUMMARY | 2022-07-03 10:40 | XMS_ITS | Encounter Summary ---
:1985 Author Organization [facility] Address [address] [place] [address] Care Team Providers Name Role Phone Blaire uBndy P.A.-C. Primary Care Provider Encounter Details Date Type Department Care Team Description 04/07/2017 Hospital [facility] Leonora Melchor, Maureen TARIQ, C.N.P. [address] [place], [place] [phone] (Wo rk) Social History [...] How often do you attend catholic or mosque More than 4 time s [...] documented as of this encounter Care Teams Stamp Press Operator Relationship Specialty Start Date End Date Blaire Bundy P.A.-C. PCP - General 02/04/17 04/26/19 documented as of this encounter
--- OUTSIDE RECORDS SUMMARY | 2022-07-03 10:40 | XMS_ITS | Encounter Summary ---
:1985 Author Organization [facility] Address [address] [place] [address] Care Team Providers Name Role Phone Unavailable Primary Care Provider Unavailable Encounter Details Date Type Department Care Team Description 01/07/2017 Hospital [facility] [address] [place] [phone] (Wo rk) Social History Tobacco Use [...] How often do you attend restoration or yazdanism More than 4 time s [...] Ordered: OV Est Pt Level 4 - 72367 - 25 min 2. Elevated Blood Pressure [...] Ordered: OV Est Pt Level 4 - 37492 - 25 min 3. High Risk NOS As per #2. Recommended f/u with OB. Ordered: OV Est Pt Level 4 - 23900 - 25 min Cough NOS Infection Urinary [...] HOLMAN MD On: 01/14/2017 06:39 AM Source: [facility] POWERCHART Document Id: [id number] documented in this encounter H&P Notes Puneet Lewis, R.N. - 01/07/2017 10:41 AM CDT Puneet Lewis RN, [employer] Nurse Practitioner Residency [...] PRN Allergies: penicillins Environmental/Occupational Conditions: Works in [employer] at a [employer]. Social History: Patient reports smoking cessation about [...] HOLMAN MD On: 01/24/2017 09:59 PM Source: [facility] FIA Formula E Document Id: [id number] documented in this encounter Miscellaneous Notes Miscellaneous [...] care. Thanks, Puneet Lewis (DNP student) Source: [facility] FIA Formula E Document Id: [id number] Miscellaneous - Leonora Holman M.D. - 01/07/2017 10:03 AM CDT Ambulatory Patient Summary [address] [place] [id number] Visit Information Name: PUNEET CLAYTON [facility] Number: [id number] Current Date: 01/07/2017 10:03:11 [...] if you dont have one. Go to [email or web address] and click on Create Your Account. Then, follow the directions to complete the online form. Youll be asked for your [facility] number which you can find at the top of this document. Your Goals/Additional instructions: Source: [facility] POWERCHART Document Id: [id number] Miscellrenee - Leonora Holman M.D. - 01/07/2017 10:03 AM CDT Ambulatory Discharge Medication List [address] [place] [id number] Visit Information Name: PUNEET CLAYTON [facility] Number: [id number] Current Date: 01/07/2017 10:03:10 [...] MD Signed On:07-JAN-2017 10:01:26 Additional Information: Source: [facility] POWERCHART Document Id: [id number] Leilani - Leonora Holman M.D. - 01/07/2017 10:01 AM CDT Work Excuse January 07, 2017 PUNEET CLAYTON [address] [place] [id number] Dear PUNEET CLAYTON, You were examined in [...] due to acute illness. Sincerely, LEONORA ABAD [address] [place] [id number] Electronic Signature Electronically Signed By: LEONORA HOLMAN MD On: January 07, 2017 This document has images extracted. Source: [facility] FIA Formula E Document Id: [id number] Miscellaneous - Roosevelt Louise L.P.N. - 01/07/2017 [...] LOUISE LPN - 01/07/2017 8:55 CDT Source: [facility]oon Document Id: [id number] CDT!8 Miscellaneous - Roosevelt Louise L.P.N. - 01/07/2017 8:51 AM CDT Adult Neuroscience Director Na Intake/History Document Has Been Updated Adult Neuroscience Director Na Intake/History Entered On: 01/07/2017 8:54 CDT Performed On: 01/07/2017 8:51 CDT by DANI, ROOSEVELT L LIGHT EQUIPMENT OPERATOR Intake Chief Complaint : URI for 1 month Cough productive green 14-15 weeks preg Would like note to be off work DANIROOSEVELT MENDOZA Apollo LIGHT EQUIPMENT OPERATOR - 01/07/2017 8:59 CDT Temperature Core : [...] 2 inch(es), 62 inch(es)) DANIROOSEVELT MENDOZA Apollo LIGHT EQUIPMENT OPERATOR - 01/07/2017 8:51 CDT General Info Information Given By : Patient Languages : Syrian Is Patient Female and 13-50 no hysterectomy [...] LOUISE LPN - 01/07/2017 8:51 CDT Source: [facility]USMarxent LabsCHART Document Id: [id number] CDT!3 documented in this encounter Plan of [...] Performing Organization Address City/[facility] Phon e Number POWERCHART (ABNORMAL) Urinalysis, Routine (01/07/2017 9:21 AM CDT) P athologist Signature Clarity Clear Clear POWERCHART HXUr Color Yellow Colorless POWERCHART Specific 1.010 POWERCHART [place], POCT, U Comment: Reference Range Specific [place]: 1.000-1.035 pH, POCT, Urine 6.0 <5.0 POWERCHART [...] Performing Organization Address City/[facility]/ZIP Code Phon e Number POWERCHART documented in this encounter Visit Diagnoses Not on filedocumented in this encounter Additional Health Concerns Assessment Noted Time PHQ-9 Depression Total Score: 11 12/13/2014 9:50 AM CD T documented as of this encounter
--- OUTSIDE RECORDS SUMMARY | 2022-07-03 10:40 | XMS_ITS | Encounter Summary ---
:1985 Author Organization [facility] Address [address] [place] [address] Care Team Providers Name Role Phone Blaire Bundy P.A.-C. Primary Care Provider Encounter Details Date Type Department Care Team Description 03/11/2017 Hospital Encounter HX [facility] Leonora Reaves, SENIOR SOFTWARE QA ANALYST, C.N.P. [address] [place] [phone] (Wo rk) Social History Tobacco [...] How often do you attend gnosticist or restorationist More than 4 time s [...] Coding Summary-Paper Based CODING DATE: 03/16/2017 FINAL [facility] STATUS: * Discharged to Home [...] ROLDAN Date Saved: 03/16/2017 02:50 pm Source: [facility] POWERCHART Document Id: [id number] documented in this encounter Plan of Treatment Scheduled Procedures Name Priority Associated Diagnoses Date/Time COLONOSCOPY Diarrhea documented as of this encounter Visit Diagnoses Not on filedocumented in this encounter Additional Health Concerns Assessment Noted Time PHQ-9 Depression Total Score: 11 12/13/2014 9:50 AM CD T documented as of this encounter Care Teams Etl Tester Relationship Specialty Start Date End Date Blaire Bundy P.A.-C. PCP - General 02/04/17 04/26/19 documented as of this encounter
--- OUTSIDE RECORDS SUMMARY | 2022-07-03 10:40 | XMS_ITS | Encounter Summary ---
:[address] [facility] Address [address] [place] [address] Care Team Providers Name Role Phone Blaire [...] How often do you attend cheondoism or jewish More than 4 time s [...] Address City/State/ZIP Code Phon e Number IIDC IIMS NA documented in this encounter Visit Diagnoses Not on filedocumented in this encounter Additional Health Concerns Assessment Noted Time PHQ-9 Depression Total Score: 7 04/07/2017 9:39 AM CDT documented as of this encounter Care Teams Awning Finisher Relationship Specialty Start Date End Date Blaire Bundy P.A.-C. PCP - General 02/04/17 04/26/19 documented as of this encounter
--- OUTSIDE RECORDS SUMMARY | 2022-07-03 10:40 | XMS_ITS | Encounter Summary ---
:1985 Author Organization [facility] Address [address] [place] [address] Care Team Providers Name Role Phone Unavailable Primary Care Provider Unavailable Encounter Details Date Type Department Care Team Description 01/08/2017 Hospital Encounter [facility] [address] [place] [phone] (Wo rk) Social History Tobacco Use [...] How often do you attend tenriism or druze More than 4 time s [...] 13:39:18 CDT From: LEONORA HOLMAN MD To: [place] [facility] Nurse Amarilys; Sent: 01/08/2017 13:39:18 CDT Subject: RE: *General Message Looks okay. Just needs to follow up with OB next week. ThanksLeonora From: CRAIG TOLENTINO LPN ([place] [facility] Nurse Panda) To: LEONORA HOLMAN MD; Sent: 01/08/2017 08:58:35 CDT Subject: *General Message Patient came in for BP check and was seen by you yesterday in the clinic. Today's BP 139/78 Pulse-100 137/75 Pulse-91 Please advise. Thank you. Source: [facility] POWERCHART Document Id: [id number] Electronically signed by Conversion, [facility] Quality Control Systems Manager [id number] at 02/01/2017 11:08 PM CDT Miscellaneous - Craig Tolentino, L.P.N. - 01/08/2017 [...] TOLENTINO LPN - 01/08/2017 8:53 CDT Source: [employer] Document Id: [id number] CDT!11 Miscellaneous - Craig Tolentino, L.P.N. - [...] TOLENTINO LPN - 01/08/2017 8:50 CDT Source: [employer] Document Id: [id number] CDT!9 documented in this encounter Plan of Treatment Scheduled Procedures Name Priority Associated Diagnoses Date/Time COLONOSCOPY Diarrhea documented as of this encounter Visit Diagnoses Not on filedocumented in this encounter Additional Health Concerns Assessment Noted Time PHQ-9 Depression Total Score: 11 12/13/2014 9:50 AM CD T documented as of this encounter
--- OUTSIDE RECORDS SUMMARY | 2022-07-03 10:40 | XMS_ITS | Encounter Summary ---
:1985 Author Organization [facility] Address [address] [place] [address] Care Team Providers Name Role Phone Catracho Bundy P.A.-C. Primary Care Provider Encounter Details Date Type Department Care Team Description 02/11/2017 Hospital Encounter [facility] Marisol Galaviz, SUZI N, C.N.P. [address] [place], [place] [phone] (Wo rk) Social History [...] or relatives? How often do you attend latter day or hinduism More than 4 time s per year 07/09/2020 services? Do you belong to any clubs or organizations No 04/19/2019 such as latter day groups, unions, fraternal or athletic groups, or [...] given to the patient: Patient Education Materials: Nurse Anesthetist Healthy Eating Habits During Nurse Anesthetist Healthy Eating Habits During Its important to [...] water with a slice of lemon or shawnee (these can also help ease an upset [...] light tuna, salmon, pollock, and catfish ?? [phone] [place] [address]. All rights reserved. This information is not intended as a substitute for professional medical care. Always follow your healthcare professional's instructions. This document has images extracted. Please consider using [facility] for all your patient education needs. Source: [facility] POWERCHART Document Id: [id number] documented in this encounter Miscellaneous Notes Miscellaneous - Marisol Marques, C.N.P., R.N. - 02/11/2017 10:38 AM CDT Ambulatory Discharge Medication List [facility] [address] [place], [place] [phone] Visit Information Name: PUNEET CLAYTON [facility] Number: [id number] Current Date: 02/11/2017 10:38:54 Attending Provider: MARISOL MARQUES CNP, welder/installer Provider: CATRACHO NAZARIO PA-C PUNEET CLAYTON has [...] RN Signed On:11-FEB-2017 10:38:51 Additional Information: Source: [facility] POWERCHART Document Id: [id number] Miscellaneous - Marisol Marques C.N.P., R.N. - 02/11/2017 10:38 AM CDT Ambulatory Patient Summary [facility] [address] [facility], [address] [place], [place] [phone] Visit Information Name: PUNEET CLAYTON [facility] Number: [id number] Current Date: 02/11/2017 10:38:55 Physicians Attending Provider: MARISOL MARQUES CNP, welder/installer Provider: CATRACHO NAZARIO PA-C PUNEET CLAYTON has [...] water with a slice of lemon or shawnee (these can also help ease an upset [...] light tuna, salmon, pollock, and catfish ?? [phone] [facility], [address] [place] [address], [place] [address]. All rights reserved. This information is not [...] if you dont have one. Go to [email or web address] and click on Create Your Account. Then, follow the directions to complete the online form. Youll be asked for your [facility] number which you can find at the top of this document. Your Goals/Additional instructions: This document has images extracted. Please consider using [facility] for all your patient education needs. Source: [facility] POWERCHART Document Id: [id number] Miscellaneous - Cleopatra Laguerre L.P.N. - 02/11/2017 10:23 AM CDT Adult Wellness Ambassador Intake/History Adult Wellness Ambassador Intake/History Entered On: 02/11/2017 10:26 CDT Performed [...] Information Given By : Patient Languages : Papua [place]inean Is Patient Female and 13-50 no hysterectomy [...] LAGUERRE LPN - 02/11/2017 10:23 CDT Source: [facility] POWERCHART Document Id: [id number] CDT!41 documented in this encounter Plan of Treatment Scheduled Procedures Name Priority Associated Diagnoses Date/Time COLONOSCOPY Diarrhea documented as of this encounter Visit Diagnoses Not on filedocumented in this encounter Additional Health Concerns Assessment Noted Time PHQ-9 Depression Total Score: 11 12/13/2014 9:50 AM CD T documented as of this encounter Care Teams Drafter Civil Relationship Specialty Start Date End Date Catracho Bundy P.A.-C. PCP - General 02/04/17 04/26/19 documented as of this encounter
--- OUTSIDE RECORDS SUMMARY | 2022-07-03 10:40 | XMS_ITS | Encounter Summary ---
:1985 Author Organization [facility] Address [address] [place] [address] Care Team Providers Name Role Phone Catracho Bundy P.A.-C. Primary Care Provider Encounter Details Date Type Department Care Team Description 03/11/2017 Hospital Encounter [facility] Leonora Melchor, Maureen TARIQ, C.N.P. [address] [place], [place] [phone] (Wo rk) Social History [...] often do you attend roman catholic or synagogue More than 4 time s [...] Miscellaneous Notes Miscellaneous - Leonora Villaseñor R.N., [facility] - 03/11/2017 3:28 PM CDT Ambulatory Discharge Medication List [facility] [address] [place], [address] [place], [place] [phone] Visit Information Name: PUNEET COOLEY [facility] Number: [id number] Current Date: 03/11/2017 15:28:15 Attending Provider: LEONORA VILLASEÑOR R.N., [facility] Primary Care Provider: CATRACHO NAZARIO PA-C COOLEY [...] WHNP-BC Signed On:11-MAR-2017 15:28:14 Additional Information: Source: [facility] POWERCHART Document Id: [id number] Miscellaneous - Leonora Villaseñor R.N., WHNP-BC - 03/11/2017 3:28 PM CDT Ambulatory Patient Summary [facility] [address] [place], [address] [place], [place] [phone] Visit Information Name: PUNEET COOLEY [facility] Number: [id number] Current Date: 03/11/2017 15:28:15 Physicians [...] Appointments Date Time Location Provider 04/07/2017 09:00 [facility] PERSONALIZED LIVING MANAGER NURSE Leonora Villaseñor NP Attention: Contact your local [...] if you dont have one. Go to [email or web address] and click on Create Your Account. Then, follow the directions to complete the online form. Youll be asked for your [facility] number which you can find at the top of this document. Your Goals/Additional instructions: Source: [facility] POWERCHART Document Id: [id number] Miscellaneous - Dawna Madera L.P.NBrittaney - 03/11/2017 2:39 PM CDT Adult Research Geologist Intake/History Adult Research Geologist Intake/History Entered On: 03/11/2017 14:43 CDT Performed [...] Preferred Communication Mode : Verbal Languages : Lithuanian Is Patient Female and 13-50 no hysterectomy [...] MADERA L.P.N. - 03/11/2017 14:39 CDT Source: [facility] [employer] Document Id: [id number] CDT!40 documented in this encounter Plan of [...] exposure to syp hilis. Test Performed by: [address], [place] [address] Specimen (Source) Anatomical Collection Method Collection Time Re ceived Time Location / / Volume Laterality Blood 03/11/2017 2:24 PM CDT Marlyn Carter APRN.N.P. LAB BLOOD ADD-ON Performing Organization Address [facility] Phon e Number POWERCHART POWERCHART NA (ABNORMAL) CBC without Differential (03/11/2017 2:24 PM CDT) Analysis Performed At Patho logist Time Signature Leukocytes 9.6 3.5 - 10.5 POWERCHART X109L Erythrocytes 3.95 3.90 - POWERCHART 5.03 [id number] Hemoglobin 11.6 (L) 12.0 - POWERCHART 15.5 [...] C.N.P. LAB BLOOD ADD-ON Performing Organization Address City/[facility] Code Phon e Number POWERCHART [...] C.N.P. LAB BLOOD ADD-ON Performing Organization Address City/[facility] Phon e Number POWERCHART POWERCHART NA documented in this encounter Visit Diagnoses Not on filedocumented in this encounter Additional Health Concerns Assessment Noted Time PHQ-9 Depression Total Score: 11 12/13/2014 9:50 AM CD T documented as of this encounter Care Teams Clothes Drier Repairer Relationship Specialty Start Date End Date Bundy, Catracho E, P.A.-C. PCP - General 02/04/17 04/26/19 documented as of this encounter
--- OUTSIDE RECORDS SUMMARY | 2022-07-03 10:40 | XMS_ITS | Encounter Summary ---
:1985 Author Organization [facility] Address [address] [place] [address] Care Team Providers Name Role Phone Unavailable Primary Care Provider Unavailable Encounter Details Date Type Department Care Team Description 11/09/2016 Hospital Encounter HX [facility] Ashwin Bundy P.ACalistaCBrittaney [address] [place], [place] [phone] (Wo rk) Social History Tobacco Use Types [...] How often do you attend confucianist or scientology More than 4 time s [...] convenient for you! From: PUNEET CLAYTON To: [place] [facility] (MARINE FIRER) Sent: 11/16/2016 11:13 a.m. CDT Subject: RE: [...] hour appointment. Please call the clinic in [place], talk with Tejal in [facility] to schedule! talk soon! Leonora Villaseñor Source: [facility] Relationship Science Document Id: [id number] Electronically signed by Conversion, [facility] Printer Floor Covering Assistant [id number] at 02/02/2017 2:11 AM CDT Miscellaneous - [...] hour appointment. Please call the clinic in [place], talk with Tejal in [facility] to schedule! talk soon! Leonora Villaseñor Source: [facility] Relationship Science Document Id: [id number] Electronically signed by Conversion, [facility] Printer Floor Covering Assistant [id number] at 02/02/2017 2:11 AM CDT documented in [...] Performed At Patho logist Time Signature Beta-HCG, [address]44[address].0 <=4.9 IUL POWERCHART Quantitative, (H) S Comment: [...]
--- OUTSIDE RECORDS SUMMARY | 2022-07-03 10:41 | XMS_ITS | Encounter Summary ---
:1985 Author Organization [facility] Address [address] [place] [address] Care Team Providers Name Role Phone Unavailable Primary Care Provider Unavailable Encounter Details Date Type Department Care Team Description 02/15/2016 Hospital Encounter HX [facility] Renny Castro M.D. [address] [place], [place] [address] (Wo rk) Social History [...] How often do you attend anabaptism or sabianist More than 4 time s [...] Acuna M.D. - 02/15/2016 8:56 AM CDT [id number] CHIEF COMPLAINT/REASON FOR VISIT Sore throat. HISTORY [...] ACUNA MD On: 02/18/2016 05:30 PM Source: [facility] MHSDOLBEYNONRADSYS Document Id: [id number] documented in this encounter Miscellaneous Notes Miscellaneous - Timbo Acuna M.D. - 02/15/2016 10:25 AM CDT Work Excuse February 15, 2016 PUNEET CLAYTON [address] [facility] [id number] Dear PUNEET CLAYTON, You were examined in [...] 02/16/2016 Notes: _ Sincerely, TIMBO ACUNA [address] [place] [address] Electronic Signature Electronically Signed By: TIMBO ACUNA MD On: February 15, 2016 This document has images extracted. Source: [facility] POWERCHART Document Id: [id number] Electronically signed by Roland [facility] Contact Clerk [id number] at 01/16/2017 7:03 PM CDT Miscellaneous - Craig Tolentino, L.P.N. - 02/15/2016 9:21 AM CDT Adult Proposal Engineer Intake/History Adult Proposal Engineer Intake/History Entered On: 02/15/2016 9:24 CDT Performed [...] ft 2 inch(es), 62 inch(es)) CRAIG TOLENTINO [facility] - 02/15/2016 9:21 CDT General Info Information Given By : Patient Preferred Communication Mode : Verbal Languages : Norwegian Is Patient Female and 13-50 no hysterectomy : Yes Status : Patient denies Are you ? : No CRAIG TOLENTINO [facility] - 02/15/2016 9:21 CDT Subjective Pain Symptoms : Yes CRAIG TOLENTINO [facility] - 02/15/2016 9:21 CDT Pain Scale Pain Scale Verbal 0-10 : Open CRAIG TOLENTINO [facility] - 02/15/2016 9:21 CDT Pain Pain Assessment Grid Pain 1 Location : Throat Intensity : 8 CRAIG TOLENTINO [facility] - 02/15/2016 9:21 CDT Dependent Habits Exposure to Tobacco Smoke : Patient smokes Smoking Status : Current every day smoker Tobacco 2A : Yes Tobacco Use/Currently Using : Yes Tobacco Use/Last 30 Days : Yes Tobacco Use/Last 12 months : Yes Type : Cigarettes: Less than 20 per day Tobacco Use/Advised to Quit : Yes Alcohol Use : No CRAIG TOLENTINO [facility] - 02/15/2016 9:21 CDT Caffeine Use Grid Caffeine Use : Current Type : Coffee, Soft drinks Frequency : Occasionally CRAIG TOLENTINO [facility] - 02/15/2016 9:21 CDT Recreational Drug Use Grid Drug Use : None CRAIG TOLENTINO [facility] - 02/15/2016 9:21 CDT [facility] [employer] Document Id: [id number] CDT!49 documented in this encounter Plan of [...] Strep A Screen (02/15/2016 9:27 AM CDT) [facility] gist Method Time Signature HXStrep A [...]
--- OUTSIDE RECORDS SUMMARY | 2022-07-03 10:41 | XMS_ITS | Encounter Summary ---
:1985 Author Organization [facility] Address [address] [place] [address] Care Team Providers Name Role Phone Unavailable Primary Care Provider Unavailable Encounter Details Date Type Department Care Team Description 07/19/2015 Hospital Encounter [facility]X [facility] Luisa Stevens M .D. Social History Tobacco Use Types Packs/Day Years [...] How often do you attend mormon or congregational More than 4 time s [...] Sign Reading Time Taken Comments Blood Pressure 149/69 07/19/2015 9:15 PM [employer] Pulse 113 07/19/2015 9:15 PM [employer] Temperature - - Respiratory Rate - - Oxygen Saturation - - Inhaled Oxygen Concentration - - Weight - - Height - - Body Mass Index - - documented in this encounter Discharge Summaries Rylee Romero R.N. - 07/19/2015 10:17 PM CST ED Discharge Instructions [place] [id number] [address] [address] Name: PUNEET CLAYTON Date of : 1985 12:00 AM Visit Date: 07/19/2015 9:06 PM [facility] Number: [id number] Address: [address] [place] [phone] Primary Care Provider: ALISON LOREDO PA-C IMPORTANT: [facility] in [place] would like to thank you for allowing us to assist you with your healthcare needs. The following includes patient education materials and informationregarding your injury/illness. Diagnosis: Strep Throat Pharyngitis Follow-Up Instructions: With: Address: When: ALISON LOREDO [address] [place] [id number] [facility] () Within As Needed Comments: Call for follow up appointment Your Upcoming Appointments: Date Time Location Provider No Appointments found Patient Education Materials: Pharyngitis: Strep [Confirmed] Your test for strep throat was positive. Strep throat is a contagious illness. It is spread by coughing, kissing or by touching others after touching your mouth or nose. Symptoms include throat pain which is worse with swallowing, aching all over, headache and fever. You will be treated with an antibiotic which should make you start to feel better within 1-2 days. Home Care: ?? Rest at home and drink plenty of fluids to avoid dehydration. ?? No school or work for the first two days on antibiotics. You will not be contagious after this time and if you are feeling better, you can return to school or work. ?? Take your antibiotics for a full 10 days, even if you feel better after the first few days of treatment. This is very important to prevent heart or kidney disease that can result as a complication of untreated strep throat infection. ?? Children: Use acetaminophen (Tylenol) for fever, fussiness or discomfort. In infants over six months of age, you may use ibuprofen (Children's Motrin) instead of Tylenol. [NOTE: If your child has chronic liver or kidney disease or ever had a stomach ulcer or GI bleeding, talk with your doctor before using these medicines.] (Aspirin should never be used in anyone under 18 years of age who is ill with a fever. It may cause severe liver damage.)Adults: You may use acetaminophen (Tylenol) or ibuprofen (Motrin, Advil) to control pain or fever, unless another medicine was prescribed for this. [NOTE: If you have chronic liver or kidney disease or ever had a stomach ulcer or GI bleeding, talk with yourdoctor before using these medicines.] ?? Throat lozenges or sprays (Chloraseptic and others) will reduce pain. Gargling with warm salt water will also reduce throat pain. Dissolve 1/2 teaspoon of salt in 1 glass of warm water. This is especially useful just before meals. Follow Up with your doctor or as directed by our staff if you are not improving over the next week. Get Prompt Medical Attention if any of the following occur: ?? Fever of 100.4?F (38?C) oral or higher, not better with fever medication ?? New or worsening ear pain, sinus pain or headache ?? Painful lumps in the back of your neck ?? Unable to swallow liquids or open your mouth wide due to throat pain ?? Trouble breathing or noisy breathing ?? Muffled voice ?? New rash ?? [id number] [facility], [address] [place] [address]. All rights reserved. This information is not [...] if you dont have one. Go to [email or web address] and click on Create Your Account. Then, follow the directions to complete the online form. Youll be asked for your [facility] number which you can find at the top of this document. ED Tests and Procedures: Order Status Strep A Screen Rapid Completed Discharge Prescriptions & Home Medications: Medication/Strength Dose Route Frequency Indicat ions/Special Instructions/Comments/Notes clindamycin (clindamycin 300 mg oral capsule) 300 mg Oral every 6 hours for 5 Days SUMAtriptan (SUMAtriptan 100 mg oral tablet) 100 mg Oral as directed as needed for Migraine headacheTake 1 tablet at onset of headache. Repeat after two hours if needed. topiramate (topiramate 25 mg oral tablet) 50 mg Oral once a day 1 tab at bedtime x 3 days, then 1 2xday x 3 days, then 1 in AM and 2 HS x 3 days, then 2 tabs 2x day ibuprofen (ibuprofen 200 mg oral tablet) [...] a ride home with a responsible democrat. FORREST Cornejo AMANDA KAY , or responsible democrat have received this information and my questions have been answered. I have discussed any challenges I see with this plan with the nurse or physician. Patient Signature or Responsible Republican/Relationship Date Time Provider Signature Date Time IMPORTANT: [...] a ride home with a responsible democrat. FORREST Cornejo AMANDA KAY , or responsible democrat have received this information and my questions have been answered. I have discussed any challenges I see with this plan with the nurse or physician. Patient Signature or Responsible Republican/Relationship Date Time Provider Signature Date Time This document has images extracted. Please consider using [employer] for all your patient education needs. Source: [employer] Document Id: [id number] [employer] Rylee Romero R.N. - 07/19/2015 10:17 PM CST ED Depart Summary [facility] Emergency Department Clinical Discharge Summary PERSON INFORMATION Name PUNEET CLAYTON Age 29 Years 1985 12:00 AM Sex Female Language Chinese PCP ALISON LOREDO PA-C [id number] Visit Reason UC - Sore Throat; Poss strep Specialty Enc Type Emergency Med Service Emergency Medicine Referred by Track Group [facility] ED Discharge 07/19/2015 10:17 PM Tracking Id [id number] Checkout 07/19/2015 10:17 PM Checkin 07/19/2015 9:06 PM Acuity 5 -Non Urgent Dispo Type * Discharged to Home or Self Care Arrival 07/19/2015 9:06 PM Reg Status Complete LOS 000 01:11 Address: [address] [place] [phone] Comment: PROVIDER INFORMATION Provider Role Provider Contact Time RYLEE ROMERO TUBE WINDER HAND Nurse 07/19/15 21:08 LUISA LOPEZ MD ED Provider 07/19/15 21:08 DIAGNOSIS Strep Throat Pharyngitis Comment: PATIENT EDUCATION INFORMATION Instructions: PHARYNGITIS, Strep (Confirmed) Follow up: With: Address: When: ALISON LOREDO [address] [place] [address] [phone] [place] (8) Within As Needed Comments: Call for follow up appointment Source: [facility] [employer] Document Id: [id number] [employer] documented in this encounter ED Notes Rylee Romero RRoverto - 07/19/2015 10:14 PM CST ED Disposition Summary ED Disposition Summary Entered On: 07/19/2015 22:14 [employer] Performed On: 07/19/2015 22:14 [employer] by RYLEE ROMERO TUBE W[employer]ER HAND Disposition Summary Accompanied By : Spouse Printed Discharge Instructions Given to Patient : Yes RYELE ROMERO RN - 07/19/2015 22:14 [employer] Source: [facility] [employer] Document Id: [id number] [employer]!4 [employer] Rylee Romero R.N. - 07/19/2015 10:14 PM CST ED Pain Assessment ED Pain Assessment Entered On: 07/19/2015 22:14 [employer] Performed On: 07/19/2015 22:14 [employer] by RYLEE ORMERO RN Pain Assessment Pain Symptoms : Yes RYLEE ROMERO RN - 07/19/2015 22:14 [employer] Source: [facility] POWERCHART Document Id: [id number] [employer]!3 [employer] Rylee Romero R.N. - 07/19/2015 9:14 PM CST ED Primary Assessment Document Has Been Updated ED Primary Assessment Entered On: 07/19/2015 21:15 [employer] Performed On: 07/19/2015 21:14 [employer] by RYLEE ROMERO RN Reason For Visit (As Of: 07/19/2015 21:20:00 [employer]) Problems(Active) Abuse Tobacco Smoking NOS (ICD-9-CM :305.1 [...] Medical ; Code: 346.90 ; Contributor System: [employer] ; Last Updated: 12/12/2014 9:11 CDT ; Life Cycle Status: Active; Responsible Provider: RABIA NATHAN MD; Vocabulary: ICD-9-CM (ICD-9-CM :V22.2 ) Name of Problem: ; Onset Date: 2007 ; Recorder: GLEN ACOSTA; Confirmation: Confirmed ; Classification: Medical ; Code: V22.2 ; Contributor System: [employer] ; Last Updated: 01/21/2012 9:41 CDT ; Life Cycle Date: 01/12/2012 ; Life Cycle Status: Active ; Responsible Provider: GLEN ACOSTA; Vocabulary: ICD-9-CM Diagnoses(Active) UC - Sore Throat Date: 07/19/2015 ; Diagnosis Type: Reason For Visit ; Confirmation: Complaint of ; Clinical Dx: UC - Sore Throat ; Classification: Medical ; Clinical Service: Emergency medicine ; Code: PNED ; Probability: 0 ; Diagnosis Code: [id number] Triage Chief Complaint Description : see note Mode of Arrival ED : Private vehicle Track : Medical Languages : Chinese Treatments Prior to Arrival : Acetaminophen Are you ? : No Is Patient Female and 13-50 no hysterectomy : Yes Status : Patient denies RYLEE ROMERO RN - 07/19/2015 21:14 [employer] Pain Assessment Pain Symptoms : Yes RYLEE ROMERO RN - 07/19/2015 21:14 [employer] Respiratory Airway : Patent Respirations : Unlabored Respiratory Pattern : Regular RYLEE ROMERO RN - 07/19/2015 21:14 [employer] Cardiovascular Heart Rhythm : Regular Skin Color : Normal for ethnicity Skin Description : Dry Skin Temperature : Warm RYLEE ROMERO RN - 07/19/2015 21:14 [employer] Neurological Last Well Time Known : Yes Last Known Well Time : 07/19/2015 8:00 [employer] Level of Consciousness : Alert Orientation : Oriented x 3 Characteristics of Speech : Appropriate for age RYLEE ROMERO RN - 07/19/2015 21:14 [employer] ED Psychosocial Affect/Behavior : Calm Domestic Abuse Concerns : None Behavioral Health Screen/Safety Assmt : No RYLEE ROMERO RN - 07/19/2015 21:14 [employer] Gastrointestinal Nutrition ED : Adequate RYLEE ROMERO RN - 07/19/2015 21:14 [employer] Musculoskeletal Fall Prevention Education Provided : NA RYLEE ROMERO RN - 07/19/2015 21:14 [employer] EENT Mouth and Throat Symptoms : Swollen tonsils RYLEE ROMERO RN - 07/19/2015 21:19 [employer] Social Habits Tobacco Use/Currently Using : Yes Exposure to Tobacco Smoke : Patient smokes Smoking Status : Current every day smoker RYLEE ROMERO RN - 07/19/2015 21:14 [employer] Tobacco Use Grid Type : Cigarettes Cigarette Use Packs/Day : 0.5 RYLEE ROMERO RN - 07/19/2015 21:14 [employer] Alcohol Use Grid Alcohol Use : Yes RYLEE ROMERO RN - 07/19/2015 21:14 [employer] Recreational Drug Use Grid Drug Use : None RYLEE ROMERO RN - 07/19/2015 21:14 [employer] Source: [employer] Document Id: [id number] [employer]!3 [employer] Luisa Lopez M.D. - 07/19/2015 9:14 PM CST Throat Pain *ED Patient: PUNEET FRIED Age: 29 years Sex: Female : 1985 Author: LUISA LOPEZ MD Attachments: None Associated Diagnosis: Strep Throat Pharyngitis Basic Information Additional information: Chief Complaint from Nursing Triage Note : Chief Complaint Description 07/19/2015 21:12 [employer] Chief Complaint Description 29 year old female admits with complaints of sore throat a nd fever . History of Present Illness 29 yo f h/o peritonsillar abscess in april drained by ENT strep A positive who presents with sore throat and fever. Pt reports a severe sore throat, cough, and rever up to 101 that started this morning. Worse with swollowing. She does have a h/o sleep apnea and uses CPAP. She was evaluated to tonsilectomy by ENT but this was not done because she had not yet met criteria. No difficulty breathing, swallowing saliva, tolerating PO, DM/immunosuppresion, sick contacts, or voice changes. Review of Systems Constitutional symptoms: No fever. Skin symptoms: No rash. Eye symptoms: No recent vision problems. ENMT symptoms: Sore throat. Respiratory symptoms: No shortness of breath. Cardiovascular symptoms: No chest pain. Gastrointestinal symptoms: No abdominal pain or no vomiting. Genitourinary symptoms: No dysuria. Musculoskeletal symptoms: No Muscle pain. Neurologic symptoms: No numbness or no weakness. Hematologic/Lymphatic symptoms: Bruising tendency negative. Health Status Allergies: Allergic Reactions (Selected) Severity Not Documented Penicillins- No reactions were documented.. Past Medical/ Family/ Social History Medical history: Active Headache Migraine (346.90): Onset on 01/21/2012 at 26 years. Dysthymic Disorder (300.4): Onset on 08/01/2010 at 24 years. Comments: - Dysthymic disorder Headache (784.0): Onset on 10/24/2007 at 21 years. Comments: - Headache Abuse Tobacco Smoking NOS (305.1) Resolved ([id number]): Resolved on 01/03/2008 at 22 years.. Surgical history: Pap smear ([id number]) on 01/25/2013 at 27 Years. Pap smear ([id number]) on 01/25/2013 at 27 Years.. Family history: Cancer Grandmother (maternal) Comments: 03/13/2014 13:47 - JORY COPPOLA LPN ear Grandfather (maternal) Comments: 03/13/2014 13:47 - JORY COPPOLA LPN larynx Cystic fibrosis Sister [place] - Lung cancer Grandmother (paternal, ) Comments: 03/13/2014 13:47 - JORY COPPOLA LPN brain cancer Hypothyroidism Mother Myocardial infarction Father: onset at 47 . . Physical Examination Vital Signs: Per nurse's notes. General: Alert and no acute distress. Skin: Warm and dry. Head: Atraumatic. Neck: Supple. Eye: Pupils are equal, round and reactive to light, extraocular movements are intact and normal conjunctiva. Ears, nose, mouth and throat: Oral mucosa moist and Throat: Bilateral kissing tonsils with tonsillarcrypts, no exudate, no uvular deviation or area of fluctuance identified. Cardiovascular: Normal peripheral perfusion. Respiratory: Respirations are non-labored. Gastrointestinal: Non distended. Neurological: No focal neurological deficit observed, Level of consciousness: Appropriate for age, Cranial nerves II - XII: Intact and Speech: Normal. Lymphatics: No lymphadenopathy. Psychiatric: Cooperative and appropriate mood & affect. Medical Decision Making Differential Diagnosis:Viral pharyngitis, streptococcal pharyngitis, tonsillitis, upper respiratory infection, peritonsillar abscess. Rationale:Presentation consistent with infectious pharyngitis, likely viral versus bacterial. No evidence of deep neck infection (ie swelling sublingually, trismus) or peritonsillar abscess. No voice changes, difficulty breathing, or drooling suggestive of epiglottitis or airway compromise. No tenderness or swelling over the jugular veins or external neck. We will advise use of NSAIDS, tylenol, and fluids for symptomatic relief. Given her h/o evaluation for tonsillectomy, large tonsils, sleep apnea,h/o TPA, I would actually swab this pt for strep and tx if positive. Otherwise, I would give dexamethasone given degree of swelling. Pt also complaining of a typical migraine pain and requesting toradol. Dexamethasone may be helpful for this as well. [facility] Criteria for Strep Pharyngitis: -Patient Age 3-14 0/1 -Exudate on tonsils 0/1 -Swollen anterior cervical nodes 0/1 -Fever 1/1 -Absence of cough 0/1 Total= 1 Interpretation: 2-3 PCR or culture; 4-5 Empiric Abx. Results review:Lab results : Lab View 07/19/2015 21:45 [employer] Strep A Screen Rapid POS . Reexamination/ Reevaluation PT feeling better s/p dex and toradol. Will discharge to home w/ outpt clinda (what ENT gave her) group A prophylaxis. Impression and Plan Diagnosis Strep Throat Pharyngitis (Discharge, Emergency medicine, Medical) Plan Condition: Improved. Disposition: Discharged: Time 07/19/2015 22:06:00, to home. Counseled: Patient, Family, Regarding diagnosis, Regarding diagnostic results, Regarding treatment plan, Regarding prescription, Patient indicated understanding of instructions. Electronically Signed By: LUISA LOPEZ MD On: 07/19/2015 10:06 PM Modified by and Electronically Signed by: LUISA LOPEZ MD On: 07/19/2015 10:06 PM Source: [facility] POWERCHART Document Id: [id number]} [employer] Rylee Romero R.N. - 07/19/2015 9:12 PM CST ED Triage Assessment Document Has Been Updated ED Triage Assessment Entered On: 07/19/2015 21:14 [employer] Performed On: 07/19/2015 21:12 [employer] by RYLEE ROMERO RN Reason For Visit (As Of: 07/19/2015 21:14:31 [employer]) Problems(Active) Abuse Tobacco Smoking NOS (ICD-9-CM :305.1 ) Name of Problem: Abuse Tobacco Smoking NOS ; Recorder: MAURICE ADDISON; Confirmation: Confirmed ; Classification: Medical ; Code: 305.1 ; Contributor System: Smart PipeChart ; Last Updated: 12/12/2014 9:21 CDT ; [...] Medical ; Code: V22.2 ; Contributor System: [employer] ; Last Updated: 01/21/2012 9:41 CDT ; Life Cycle Date: 01/12/2012 ; Life Cycle Status: Active ; Responsible Provider: GLEN ACOSTA; Vocabulary: ICD-9-CM Diagnoses(Active) UC - Sore Throat Date: 07/19/2015 ; Diagnosis Type: Reason For Visit ; Confirmation: Complaint of ; Clinical Dx: UC - Sore Throat ; Classification: Medical ; Clinical Service: Emergency medicine ; Code: PNED ; Probability: 0 ; Diagnosis Code: [id number] Triage Chief Complaint Description : 29 year old female admits with complaints of sore throat a nd fever Mode of Arrival ED : Private vehicle Track : Medical Languages : Chinese Treatments Prior to Arrival : Acetaminophen Are you ? : No Is Patient Female and 13-50 no hysterectomy : Yes Status : Patient denies RYLEE ROMERO RN - 07/19/2015 21:12 [employer] Pain Assessment Pain Symptoms : Yes RYLEE ROMERO RN - 07/19/2015 21:12 [employer] Pain Scale Pain Scale Verbal 0-10 : Open RYLEE ROMERO RN - 07/19/2015 21:12 [employer] Pain Pain Assessment Grid Pain 1 Location : Throat Intensity : 5 RYLEE ROMERO RN - 07/19/2015 21:12 [employer] ED Physician Notification Time ED Physician Notification Time : 07/19/2015 21:14 [employer] RYLEE ROMERO RN - 07/19/2015 21:12 [employer] JAYDEN JAYDEN Level 1 : No JAYDEN Level 2 : No JAYDEN Level 3 : Many RYLEE ROMERO RN - 07/19/2015 21:12 [employer] DCP GENERIC CODE Tracking Acuity : 5 -Non Urgent Tracking Group : [facility] ED RYLEE ROMERO RN - 07/19/2015 21:12 [employer] Allergy (As Of: 07/19/2015 21:14:31 [employer]) Allergies (Active) penicillins Estimated Onset Date: Unspecified ; Created By: GLEN ACOSTA; Reaction Status: Active ;Category: Drug ; Substance: penicillins ; Type: Allergy ; Updated By: GLEN ACOSTA; Reviewed Date: 04/22/2015 10:36 CDT Immunizations Influenza : None RYLEE ROMERO RN - 07/19/2015 21:12 [employer] Source: [employer] Document Id: [id number] [employer]!30 [employer] documented in this encounter Miscellaneous Notes Miscellaneous - Conversion, Historical Provider Ser - 07/19/2015 10:17 PM [employer] Coding Summary-Paper Based CODING DATE: 07/29/2015 FINAL [place] [facility] STATUS: * Discharged to Home or Self Care PAYOR: [employer] ADMIT DX: J02.9 Acute pharyngitis, unspecified REASON FOR VISIT DX: J02.9 Acute pharyngitis, unspecified FINAL DX: PRINCIPAL: J02.0 Streptococcal pharyngitis SECONDARY: F17.210 Nicotine dependence, cigarettes, uncomplicated PROCEDURES DOCTOR NAME DATE NOTE: The code number assigned matches the documented diagnosis and / or procedure in the patient's chart. However, the narrative phrase printed from the coding software may appear abbreviated, or result in slightly different terminology. Coded By: EDUIN PAGAN Date Saved: 07/29/2015 01:50 pm Source: [employer] Document Id: [id number] Miscellaneous - Rylee Romero RMarcos. - 07/19/2015 10:14 PM CST Valuables/Belongings Valuables/Belongings Entered On: 07/19/2015 22:14 [employer] Performed On: 07/19/2015 22:14 [employer] by RYLEE ROMERO RN Valuables/Belongings Belongings Sent Home With : Allsent with patient RYLEE ROMERO RN - 07/19/2015 22:14 [employer] Source: [employer] Document Id: [id number] [employer]!3 [employer] Miscellaneous - Rylee Romero R.N. - 07/19/2015 9:06 PM CST Facility Charge Ticket 2.0 11.0 DX Facility Charge Ticket 2.0 11.0 DX Entered On: 07/19/2015 22:14 [employer] Performed On: 07/19/2015 21:06 [employer] by RYLEE ROMERO RN Facility Charge Ticket 2.0 11.0 DX ED Other Charges : Standard ED Encounter TVL Level Translated RTF : UC - Sore Throat TVL:2 TVL Level for Facility Charge Ticket : Level 2 Arrival Mode Calc : 129 Mode of Arrival ED : Private vehicle [facility] Mode of Arrival Interpreted : Standard [facility] Process Management : None Order Management RTF : Laboratory Strep A Screen Rapid,07/19/15 21:35,LUISA LOPEZ MD Completed [facility] Order Management : Lab tests 30 Minutes Critical Care : No Nursing Notes RTF : Triage Forms ED Triage Assessment,07/19/15 21:12,RYLEE ROMERO RN Nursing Notes ED Primary Assessment,07/19/15 21:14,RYLEE ROMERO TUBE WINDER HAND Primary Assessment,07/19/15 21:14,RYLEE ROMERO TUBE W[employer] HAND Pain Assessment,07/19/15 22:14,RYLEE ROMERO RN [facility] Nursing Assessment : Triage and 1-2 nursing assessments [facility] Disposition : Discharge Disposition RTF : discharge [facility] Total Points with Diagnosis Control : 5 [facility] Visit Level : 86375 Level 3 Treatments Prior to Arrival : Acetaminophen RYLEE ROMERO RN - 07/19/2015 22:14 [employer] Source: [facility] POWERCHART Document Id: [id number] [employer]!19 [employer] documented in this encounter Plan of Treatment Scheduled Procedures Name Priority Associated Diagnoses Date/Time COLONOSCOPY Diarrhea documented as of this encounter Procedures Procedure Name Priority Date/Time Associated Diagnosis Comme nts RAPID STREP A Routine 07/19/2015 9:45 PM Results for this SCREEN [employer] procedure are i n the results section. documented in this encounter Results (ABNORMAL) Rapid Strep A Screen (07/19/2015 9:45 PM [employer]) [facility] gist Method Time Signature HXStrep A (POSITIVE) POWERCHART Screen Rapid HXFinal Positive for POWERCHART Group A Strep by rapid screen. Specimen (Source) Anatomical Collection Method Collection Time Re ceived Time Location / / Volume Laterality Throat 07/19/2015 9:45 PM [employer] Luisa Lopez M.D. LAB MICROBIOLOGY - GENERAL O RDERABLES Performing Organization Address City/State/ZIP Code Phon e Number POWERCHART documented in this encounter Visit Diagnoses Not on filedocumented in this encounter Additional Health Concerns Assessment Noted Time PHQ-9 Depression Total Score: 11 12/13/2014 9:50 AM CD T documented as of this encounter
--- OUTSIDE RECORDS SUMMARY | 2022-07-03 10:41 | XMS_ITS | Encounter Summary ---
:[address] [facility] Address [address] [place] [address] Care Team Providers Name Role Phone Unavailable Primary Care Provider Unavailable Encounter Details Date Type Department Care Team Description 12/10/2015 Hospital Encounter HX [facility] Renny Castro M.D. [address] [place], [place] [address] (Wo rk) Social History [...] How often do you attend lutheran or adventist More than 4 time s [...] Sign Reading Time Taken Comments Blood Pressure 131/69 12/10/2015 8:07 AM CDT Pulse 85 12/10/2015 8:07 AM CDT Temperature - - Respiratory Rate 16 12/10/2015 8:07 AM CDT Oxygen Saturation - - Inhaled Oxygen Concentration - - Weight 142 kg (313 lb 0.9 oz) 12/10/2015 8:07 AM CDT Height 157 cm (5' 1.81) 12/10/2015 8:07 AM CDT Body Mass Index 57.61 12/10/2015 8:07 AM CDT documented in this encounter Progress Notes Timbo Acuna M.D. - 12/10/2015 7:54 AM CDT [id number] CHIEF COMPLAINT/REASON FOR VISIT A 3-month history of cough with sinus pressure and nasal congestion. HISTORY OF PRESENT ILLNESS This is a 29-year-old woman with a 3-month history of intermittent cough that has waxed and waned. Initially it started with other symptoms including sore throat, nasal congestion and feverishness. Although those symptoms have resolved the cough has continued. The cough is rarely productive. At one point about six weeks into the course the cough was associated with pleuritic chest pain but this has since resolved. A co-worker was diagnosed with bronchitis and she had a similar cough. PAST MEDICAL/SURGICAL HISTORY 1. Two strep infections over the past 12 months, 1 of which resulted in a peritonsillar abscess. 2. P 1-0-0-1, no other hospitalizations, no surgeries. 3. Chronic migraines. 4. Obstructive sleep apnea on CPAP. MEDICATIONS Currently none. ALLERGIES Penicillin. SYSTEMS REVIEW GENERAL: No feverishness, chills, sweats change in weight or fatigue. PULMONARY: Negative for dyspnea. CARDIAC: Negative for palpitations or chest discomfort. GASTROINTESTINAL: Negative. SKIN: Positivefor a chronic anterior neck rash. GENITOURINARY: Negative. MUSCULOSKELETAL: Negative. PHYSICAL EXAMINATION VITAL SIGNS: Temp 36.5, heart rate 85, respirations 16, blood pressure 131/69, O2 sat is 98% on ambient air. GENERAL: No acute distress. HEENT: No sinus tenderness to pressure. Pupils equally round and reactive to light and accommodation. Extraocular movements intact. Conjunctivae minimally injected. No pallor. The nose is mildly congested. No rhinorrhea. Oropharynx moist mucous membranes. No enanthem or pharyngeal erythema. There is no substantial cervical adenopathy. Tympanic membranes are translucent and white. LUNGS: Persistent end expiratory rhonchi on the right base present even after an albuterol nebulizer. Expiratory phase is not prolonged and there is no other wheezing or other adventitious sounds. CARDIAC: S1, S2. Distant heart sounds. S2 splitting is not appreciated. No murmur is heard. EXTREMITIES: No edema, clubbing or cyanosis. DIAGNOSTICS Chest x-ray shows no infiltrates. IMPRESSION/REPORT/PLAN 1. Chronic cough. 2. Sinusitis. PLAN: Two weeks of antibiotic therapy followed by followup if the cough continues to consider further evaluation for chronic cough such as trial of proton pump inhibitor, CT of the chest, treatment forallergic rhinitis. Timbo Acuna M.D./robb Electronically Signed By: TIMBO ACUNA MD On: 12/11/2015 08:52 AM Source: [facility] MHSDOLBEYNONRADSYS Document Id: [id number] documented in this encounter Miscellaneous Notes Miscellaneous - Timbo Acuna M.D. - 12/10/2015 9:16 AM CDT Ambulatory Patient Summary [address] [id number] Visit Information Name: PUNEET CLAYTON [facility] Number: [id number] Current Date: 12/10/2015 09:16:05 Physicians Attending Provider: TIMBO ACUNA MD Primary Care Provider: PCP, ELSEWHERE PUNEET CLAYTON has been given the following [...] Take Indications/Special Instructions/Comments/Notes for Patient Medication Changes/Routing dextromethorphan-guaiFENesin (Mucinex DM Maximum Strength 60 mg-1200 mg oral tablet, extended release) 1 Tablet(s), Oral, two times a day New ibuprofen (ibuprofen 200 mg oral tablet) See Instructions 3-4 tabs prn sulfamethoxazole-trimethoprim (Bactrim DS 800 mg-160 mg oral tablet) 1 Tablet(s), Oral, two times a day x 14 day(s) [facility] [address] [place] [address] topiramate (topiramate 25 mg oral tablet) 2 Tablet(s), Oral, once a day 1 tab at bedtime x 3 days, then 1 2x day x 3 days, then 1 in AM and 2 HS x 3 days, then 2 tabs 2x day Stop Taking the Following Medications: Medication list as of 12-10-15 09:16 Attention: If you have any medications at [...] if you dont have one. Go to [email or web address] and click on Create Your Account. Then, follow the directions to complete the online form. Youll be asked for your [facility] number which you can find at the top of this document. Your Goals/Additional instructions: Source: [facility] POWERCHART Document Id: [id number] Miscellaneous - Timbo Acuna M.D. - 12/10/2015 9:16 AM CDT Ambulatory Discharge Medication List [address] [id number] Visit Information Name: PUNEET CLAYTON [facility] Number: [id number] Visit Date: 12/10/2015 09:16:04 Attending Provider: TIMBO ACUNA MD Primary Care Provider: PCP, ELSEWHERE PUNEET CLAYTON has been given the following list of medications: Your Medications It is important to take your medications as directed. Use a pill box or chart to help remind you to take your medications. Please let your doctor or nurse know if you have problems taking your medications. Medication/Strength How to Take Indications/Special Instructions/Comments/Notes for Patient Medication Changes/Routing dextromethorphan-guaiFENesin (Mucinex DM Maximum Strength 60 mg-1200 mg oral tablet, extended release) 1 Tablet(s), Oral, two times a day New ibuprofen (ibuprofen 200 mg oral tablet) See Instructions 3-4 tabs prn sulfamethoxazole-trimethoprim (Bactrim DS 800 mg-160 mg oral tablet) 1 Tablet(s), Oral, two times a day x 14 day(s) New Routed to [address] [address] topiramate (topiramate 25 mg oral tablet) 2 Tablet(s), Oral, once a day 1 tab at bedtime x 3 days, then 1 2x day x 3 days, then 1 in AM and 2 HS x 3 days, then 2 tabs 2x day Stop Taking the Following Medications: Medication list as of 12-10-15 09:16 Attention: If you have any medications at [...] Signed By: Signed On: Additional Information: Source: [facility] POWERCHART Document Id: [id number] Miscellaneous - Abimbola Perry L.P.N. - 12/10/2015 8:07 AM CDT Adult Director Of In Service Education Intake/History Adult Director Of In Service Education Intake/History Entered On: 12/10/2015 8:09 CDT Performed On: 12/10/2015 8:07 CDT by ABIMBOLA PERRY LPN Intake Chief Complaint : on and off cough since aug. sinus presure, congestion Temperature Core : 36.5 DegC(Converted to: 97.7 DegF) Peripheral Pulse Rate : 85 /min Respiratory Rate : 16 /min Systolic Blood Pressure : 131 mmHg Diastolic Blood Pressure : 69 mmHg NIBP Mean : 90 mmHg BP Location : Left upper extremity Blood Pressure Cuff Size : Large SpO2 : 98 % Oxygen Therapy : Room air Height : 157 cm(Converted to: 5 ft 2 inch(es), 62 inch(es)) Actual Weight : 142.0 kg(Converted to: 313 lb 1 oz) Weight Source : Standing scale Dosing Weight Clinic : 142 kg Clinic BSA : 2.49 Body Mass Index : 57.61 kg/m2 ABIMBOLA PERRY LPN - 12/10/2015 8:07 CDT General Info Languages : Swedish Is Patient Female and 13-50 no hysterectomy : Yes Status : Patient denies Are you ? : No ABIMBOLA PERRY LPN - 12/10/2015 8:07 CDT Subjective Pain Symptoms : No ABIMBOLA PERRY LPN - 12/10/2015 8:07 CDT Dependent Habits Exposure to Tobacco Smoke : Patient smokes Smoking Status : Current every day smoker Tobacco 2A : Yes Tobacco Use/Currently Using : Yes Tobacco Use/Last 30 Days : Yes Tobacco Use/Last 12 months : Yes Type : Cigarettes: Less than 20 per day Tobacco Use/Advised to Quit : Yes ABIMBOLA PERRY LPN - 12/10/2015 8:07 CDT Caffeine Use Grid Caffeine Use : Current Type : Coffee, Soft drinks Frequency : Occasionally ABIMBOLA PERRY LPN - 12/10/2015 8:07 CDT Recreational Drug Use Grid Drug Use : None ABIMBOLA PERRY LPN - 12/10/2015 8:07 CDT Source: [facility] Gera-IT Document Id: [id number] CDT!43 documented in this encounter Plan of Treatment Scheduled Procedures Name Priority Associated Diagnoses Date/Time COLONOSCOPY Diarrhea documented as of this encounter Visit Diagnoses Not on filedocumented in this encounter Additional Health Concerns Assessment Noted Time PHQ-9 Depression Total Score: 11 12/13/2014 9:50 AM CD T documented as of this encounter
--- OUTSIDE RECORDS SUMMARY | 2022-07-03 10:41 | XMS_ITS | Encounter Summary ---
:1985 Author Organization [facility] Address [address] [place] [address] Care Team Providers Name Role Phone Unavailable Primary Care Provider Unavailable Encounter Details Date Type Department Care Team Description 01/24/2015 - Hospital Encounter HX [facility] ED Rizwan Dean M.D. 01/25/2015 [address] [place] [phone] (Wo rk) Social History Tobacco [...] How often do you attend confucianism or anglican More than 4 time s [...] 01/25/2015 12:43 AM CDT ED Discharge Instructions [address] [place] [address] Name: PUNEET FRIED Date of : 1985 12:00 AM Visit Date: 01/24/2015 10:25 PM [facility] Number: [id number] Address: [address] [place] [phone] Primary Care Provider: ALISON MONACO PA-C IMPORTANT: [facility] in [place] would like to thank you for allowing us to assist you with your healthcare needs. The following includes patient education materials and information regarding your injury/illness. Diagnosis: Angioedema Initial; Urticaria Allergic Follow-Up Instructions: With: Address: When: ALISON MONACO [address] [place] [address] Business (1) Within As Needed Comments: Your [...] Colored fluid draining from the wound ?? [address] [place] [address]. All rights reserved. This information is not intended as a substitute for professional medical care. Always follow your healthcare professional's instructions. Angioedema Angioedema (pronounced njwne-r-nollr) is a sudden appearance of swollen patches [...] Trouble breathing ?? Severe abdominal pains ?? [address], [place] [address]. All rights reserved. This information is not [...] ride home with a responsible constitution party. IFARIHA AMANDA KAY , or responsible constitution party have received this information and my questions have been answered. I have discussed any challenges I see with this plan with the nurse or physician. Patient Signature or Responsible Libertarian/Relationship Date Time Provider Signature Date Time Medication [...] nurse or physician. Patient Signature or Responsible Libertarian/Relationship Date Time Provider Signature Date Time This document has images extracted. Please consider using [employer] for all your patient education needs. Source: [facility] POWERCHART Document Id: [id number] Pati Shepard R.N. - 01/25/2015 12:43 AM CDT ED Depart Summary [facility] Emergency Department Clinical Discharge Summary PERSON INFORMATION Name PUNEET FRIED Age 29 Years 1985 12:00 AM Sex Female Language Armenian PCP ALISON MONACO PA-C Marital Status Single Visit Id Visit Reason Insect bite and/or sting; ALLERGIC REACTION TO BUG BITE Specialty Enc Type Emergency Med Service Emergency Medicine Referred by Track Group [facility] ED Discharge 01/25/2015 12:35 AM Tracking Id [id number] Checkout 01/25/2015 12:35 AM Checkin 01/24/2015 10:25 PM Acuity 4 -Less Urgent Dispo Type * Discharged to Home or Self Care Arrival 01/24/2015 10:25 PM Reg Status Complete LOS 000 02:10 Address: [address] [place] [phone] Comment: PROVIDER INFORMATION Provider Role Provider Contact Time KAREY PENA CIRCUS ROUSTABOUT Nurse 01/24/15 22:32 PATI SHEPARD RN ED Nurse 01/24/15 23:08 SLIM DEAN MD ED Provider 01/24/15 23:37 DIAGNOSIS Angioedema Initial; Urticaria Allergic Comment: PATIENT EDUCATION INFORMATION Instructions: ALLERGIC REACTION, Insect (General); ANGIOEDEMA Follow up: With: Address: When: ALISON MONACO [address] [place] [phone] Gift Card Impressions () Within As Needed Comments: Source: [facility] POWERCHART Document Id: [id number] documented in this encounter ED Notes Pati [...] SHEPARD RN - 01/25/2015 0:40 CDT Source: [facility] Communication Science Document Id: [id number] CDT!7 Slim Dean - 01/24/2015 11:36 PM [...] 300.4 / Confirmed Dysthymic disorder Resolved: / [id number]. Physical Examination Vital Signs: Vital Signs 01/24/2015 [...] Time 01/25/2015 00:35:00, to home. Prescriptions: Prescription [facility]: EpiPen Auto-Injector 0.3 mg injectable kit [...] DEAN MD On: 01/25/2015 12:36 AM Source: [facility] POWERCHART Document Id: [id number]} Karey Pena, R.N. - 01/24/2015 10:37 PM [...] Medical ; Code: V22.2 ; Contributor System: [employer] ; Last Updated: 01/21/2012 9:41 CDT ; Life Cycle Date: 01/12/2012 ; Life Cycle Status: Active ; Responsible Provider: GLEN ACOSTA; Vocabulary: ICD-9-CM Diagnoses(Active) Insect bite and/or sting Date: 01/24/2015 ; Diagnosis Type: Reason For Visit ; Confirmation: Complaint of ; Clinical Dx: Insect bite and/or sting ; Classification: Medical ; Clinical Service: Emergencymedicine ; Code: PNED ; Probability: 0 ; Diagnosis Code: [id number] Triage Chief Complaint Description : 29 year old female with complaints of a bug bite on the left side of the neck. Patient is having hot flashes and SOB at times. Bug bite patient around 0530pm tonight. Information Given By : Patient, Friend Accompanied By : Friend Mode of Arrival ED : Private vehicle Track : Medical Languages : Armenian Treatments Prior to Arrival : None Are [...] PENA RN - 01/24/2015 22:37 CDT [facility] Document Id: [id number] CDT!53 documented in this encounter Miscellaneous Notes Miscellaneous - Pati Shepard R.N. - 01/25/2015 12:35 AM CDT Valuables/Belongings Valuables/Belongings Entered On: 01/25/2015 0:41 CDT Performed On: 01/25/2015 0:35 CDT by PATI SHEPARD RN Valuables/Belongings Valuables/Belongings Grid Valuables with Patient Clothes, Patient Valuables : Other: cellphone PATI SHEPARD RN - 01/25/2015 0:41 CDT Source: [facility] Communication Science Document Id: [id number] CDT!5 Miscellaneous - Conversion, Historical Provider Ser - 01/25/2015 12:35 AM CDT Coding Summary-Paper Based CODING DATE: 02/07/2015 FINAL [facility] STATUS: * Discharged to Home [...] ZENG Date Saved: 02/07/2015 11:40 am Source: [facility] Communication Science Document Id: [id number] Miscellaneous - Pati Shepard R.N. - 01/25/2015 12:17 AM CDT Communication Note Communication Note Entered On: 01/25/2015 0:17 CDT Performed On: 01/25/2015 0:17 CDT by PATI SHEPARD RN Communication Assessment Communication Note : Feeling better. PATI SHEPARD RN - 01/25/2015 0:17 CDT [facility] Document Id: [id number] CDT!3 Miscellaneous - Pati Shepard R.N. - [...] Control : 2 Lynx Visit Level : 07924 Level 2 Treatments Prior to Arrival : None PATI SHEPARD RN - 01/25/2015 0:41 CDT Source: [employer] Document Id: [id number] CDT!18 documented in this encounter Plan of Treatment Scheduled Procedures Name Priority Associated Diagnoses Date/Time COLONOSCOPY Diarrhea documented as of this encounter Visit Diagnoses Not on filedocumented in this encounter Additional Health Concerns Assessment Noted Time PHQ-9 Depression Total Score: 11 12/13/2014 9:50 AM CD T documented as of this encounter
--- OUTSIDE RECORDS SUMMARY | 2022-07-03 10:41 | XMS_ITS | Encounter Summary ---
:1985 Author Organization [facility] Address [address] [place] [address] Care Team Providers Name Role Phone Unavailable Primary Care Provider Unavailable Encounter Details Date Type Department Care Team Description 11/05/2014 - Hospital Encounter [facility] John Berman 05/22/2015 Mago Purdy, M.S. [address] [place] [phone] Social History Tobacco Use Types Packs/Day Years [...] How often do you attend restorationist or mosque More than 4 time s [...] WANG PT On: 12/31/2014 08:57 AM Source: [employer] POWERCHART Document Id: [id number] documented in this encounter Progress Notes Dev [...] as able. Total Visit Time: 25 minutes Charrer Present NA Electronically Signed By: DEV WANG PT On: 11/28/2014 11:31 AM Source: [employer] Document Id: [id number] Dev Wang P.T. - 11/21/2014 12:33 PM [...] as able. Total Visit Time: 27 minutes Charrer Present NA Electronically Signed By: DEV WANG PT On: 11/21/2014 12:41 PM Source: [employer] Document Id: [id number] Dnaiel Craft P.T. - 11/16/2014 11:17 AM CDT [...] cervical stabilization. Total Visit Time: 22 minutes Charrer Present NA Electronically Signed By: DANIEL CRAFT PT On: 11/16/2014 11:20 AM Source: [facility] POWERCHART Document Id: [id number] Dev Wang P.T. - 11/07/2014 10:56 AM [...] cervical stabilization. 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 This plan of care has been discussed with the patient/career services director and the patient/career services director is in agreement. Frequency / Duration: Patient will be seen 2 session(s) every week(s) for 8 weeks for a total of 16 visits. I certify that the above rehabilitation services are required and authorized by [place], and that the patient's plan will be [...] huma stabilization. TOTAL VISIT TIME: 45 minutes WEATHER REPORTER PRESENT NA MULTIDISCIPLINARY PATIENT / FAMILY EDUCATION [...] PT On: 11/05/2014 09:45 AM Co-Signed By: ROSALIND MONACO PA-C On: 11/05/2014 12:11 PM Source: [employer] Document Id: [id number] documented in this encounter Miscellaneous Notes Miscellaneous - Conversion, Historical Provider Ser - 11/08/2014 8:03 AM CDT Coding Summary-Paper Based CODING DATE: 11/08/2014 FINAL [facility] STATUS: Still Patient/Expected to Rtn [place] [facility] [place]YOR: [employer] ADMIT DX: V57.1 Care [...] Revised Date Saved: 11/08/2014 08:03 am Source: [facility] POWERCHART Document Id: [id number] documented in this encounter Plan of Treatment Scheduled Procedures Name Priority Associated Diagnoses Date/Time COLONOSCOPY Diarrhea documented as of this encounter Visit Diagnoses Not on filedocumented in this encounter Additional Health Concerns Assessment Noted Time PHQ-9 Depression Total Score: 18 05/02/2014 9:45 AM CD T documented as of this encounter
--- OUTSIDE RECORDS SUMMARY | 2022-07-03 10:41 | XMS_ITS | Encounter Summary ---
:1985 Author Organization [facility] Address [address] [place] [address] Care Team Providers Name Role Phone Unavailable Primary Care Provider Unavailable Encounter Details Date Type Department Care Team Description 03/22/2015 Hospital Encounter [facility] Barbra Vora M.D. [address] [place] [phone] (Wo rk) Social History Tobacco Use [...] How often do you attend pentecostal or orthodoxy More than 4 time s [...] restricted diffusion or infarct. Marcio Briceno MD. [phone] 20-Mar-2015 10:52 [1] IMPRESSION/REPORT/PLAN 1. Cyst Brain [...] Ordered: OV Est Pt Level 2 - 75731 - 10 min FOOTNOTES [1]MR Brain w/ + w/o contrast; CATHI MONTIEL 03/20/2015 10:30 CDT Electronically Signed By: LEONORA NATHAN MD On: 03/22/2015 10:41 AM Source: [facility] POWERCHART Document Id: [id number] documented in this encounter Miscellaneous Notes Miscellaneous [...] None Behavioral Health Screen/Safety Assmt : No Uatsdin Preference : No qualifying data available. FRANCESCA LOZADA LPN - 03/22/2015 8:03 CDT Advance Directive Advanced Directives : No Advance Directive Additional Information : No FRANCESCA LOZADA LPN - 03/22/2015 8:03 CDT Educ Needs Learning Style Preference Adult Grid Patient : None Family : None FRANCESCA LOZADA LPN - 03/22/2015 8:03 CDT Source: [facility] POWERCHART Document Id: [id number] CDT!35 Miscellaneous - Francesca Lozada L.P.N. - 03/22/2015 7:59 AM CDT Adult Benefits Sales Consultant Intake/History Adult Benefits Sales Consultant Intake/History Entered On: 03/22/2015 8:02 CDT Performed [...] 03/22/2015 7:59 CDT General Info Languages : Vietnamese Is Patient Female and 13-50 no hysterectomy [...] Cigarette Use Packs/Day : 0.5 FRANCESCA LOZADA [facility] - 03/22/2015 7:59 CDT Alcohol Use : No FRANCESCA LOZADA [facility] - 03/22/2015 7:59 CDT Caffeine Use Grid Caffeine Use : Current Type : Coffee, Soft drinks Frequency : Occasionally FRANCESCA LOZADA [facility] - 03/22/2015 7:59 CDT Recreational Drug Use Grid Drug Use : None FRANCESCA LOZADA [facility] - 03/22/2015 7:59 CDT Source: [employer] Document Id: [id number] CDT!51 documented in this encounter Plan of Treatment Scheduled Procedures Name Priority Associated Diagnoses Date/Time COLONOSCOPY Diarrhea documented as of this encounter Visit Diagnoses Not on filedocumented in this encounter Additional Health Concerns Assessment Noted Time PHQ-9 Depression Total Score: 11 12/13/2014 9:50 AM CD T documented as of this encounter
--- OUTSIDE RECORDS SUMMARY | 2022-07-03 10:41 | XMS_ITS | Encounter Summary ---
:1985 Author Organization [facility] Address [address] [place] [address] Care Team Providers Name Role Phone Unavailable Primary Care Provider Unavailable Encounter Details Date Type Department Care Team Description 10/12/2016 Hospital Encounter HX [facility]ILY ME Maureen Hooker, LABORATORY ASST, C.N.P., D. N.P. [address] [place] [address] (Wo rk) Social History Tobacco [...] How often do you attend caodaism or christianity More than 4 time s [...] Comments Blood Pressure 116/78 10/12/2016 8:36 AM DEMOLITION CRANE OPERATOR Pulse 74 10/12/2016 8:36 AM DEMOLITION CRANE OPERATOR Temperature - - Respiratory Rate 16 10/12/2016 8:36 AM DEMOLITION CRANE OPERATOR Oxygen Saturation - - Inhaled Oxygen Concentration - - Weight - - Height 157 cm (5' 1.81) 10/12/2016 8:36 AM DEMOLITION CRANE OPERATOR Body Mass Index - - documented in [...] discomfort, but has not tried anything else [id number] for symptoms. No fever or chills. No [...] Ordered: OV Est Pt Level 3 - 52133 - 15 min Rapid Strep Confirmation 2. [...] C.N.P., D.N.P On: 10/12/2016 09:02 AM Source: [facility] POWERCHART Document Id: [id number] LITION CRANE OPERATOR documented in this encounter Miscellaneous Notes Miscellaneous - Rylee Hooker APRN, C.N.P., D.N.P. - 10/13/2016 11:16 AM DEMOLITION CRANE OPERATOR Results Notification Document Contains Addenda Addendum by CATRACHO NAZARIO PA-C on October 13, 2016 11:21 DEMOLITION CRANE OPERATOR Discussed with patient and order for ENT was sent for patient. From: RYLEE HOOKER APRN CBrittaneyNJud, Priti.N.P Sent: 10/13/2016 11:16:43 DEMOLITION CRANE OPERATOR Show up: 10/13/2016 11:11:00 DEMOLITION CRANE OPERATOR Subject: Results Notification Patient was contact that [...] Name MBO POS Rapid Strep Confirmation Source: [facility] POWERCHART Document Id: [id number] LITION CRANE OPERATOR Miscellaneous - Jude Cardona L.P.N. - 10/12/2016 8:36 AM CST Adult Website/Blog Editor Intake/History Adult Website/Blog Editor Intake/History Entered On: 10/12/2016 8:37 DEMOLITION CRANE OPERATOR Performed On: 10/12/2016 8:36 DEMOLITION CRANE OPERATOR by JUDE CARDONA LPN Intake Chief Complaint [...] inch(es)) JUDE CARDONA LPN - 10/12/2016 8:36 DEMOLITION CRANE OPERATOR General Info Languages : Czech Is Patient Female and 13-50 no hysterectomy : Yes Status : Patient denies Are you ? : No JUDE CARDONA LPN - 10/12/2016 8:36 DEMOLITION CRANE OPERATOR Subjective Pain Symptoms : Yes WEST CARDONANADIA Purdy LPN - 10/12/2016 8:36 DEMOLITION CRANE OPERATOR Pain Scale Pain Scale Verbal 0-10 : Open JUDE CARDONA JEANETTE 10/12/2016 8:36 DEMOLITION CRANE OPERATOR Pain Pain Assessment Grid Pain 1 Location : Throat Laterality : Bilateral Intensity : 3 WEST CARDONANADIA Purdy BIOMEDICAL FIELD SERVICE ENGINEER 10/12/2016 8:36 DEMOLITION CRANE OPERATOR Dependent Habits Exposure to Tobacco Smoke : Patient smokes Smoking Status : Current every day smoker Tobacco 2A : Yes Tobacco Use/Currently Using : Yes Tobacco Use/Last 30 Days : Yes Tobacco Use/Last 12 months : Yes Type : Cigarettes: Less than 20 per day Tobacco Use/Advised to Quit : Yes JUDE CARDONA LPN 10/12/2016 8:36 DEMOLITION CRANE OPERATOR Caffeine Use Grid Caffeine Use : Current Type : Coffee, Soft drinks Frequency : Occasionally JUDE CARDONA LPN 10/12/2016 8:36 DEMOLITION CRANE OPERATOR Recreational Drug Use Grid Drug Use : None JUDE CARDONA LPN 10/12/2016 8:36 DEMOLITION CRANE OPERATOR Source: [facility] POWERCHART Document Id: [id number] DEMOLITION CRANE OPERATOR!46 LITION CRANE OPERATOR documented in this encounter Plan of Treatment Scheduled Procedures Name Priority Associated Diagnoses Date/Time COLONOSCOPY Diarrhea documented as of this encounter Procedures Procedure Name Priority Date/Time Associated Diagnosis Comme nts RAPID STREP A Routine 10/12/2016 8:15 AM Results for this SCREEN DEMOLITION CRANE OPERATOR procedure are i n the results section. RAPID STREP A Routine 10/12/2016 8:15 AM Results for this SCREEN DEMOLITION CRANE OPERATOR procedure are i n the results section. documented in this encounter Results (ABNORMAL) Rapid Strep A Screen (10/12/2016 8:15 AM DEMOLITION CRANE OPERATOR) [facility] Method Time Signature HXRapid Strep (POSITIVE) POWERCHART Confirmation HXPre Pending POWERCHART HXFinal POS POWERCHART HXFinal [facility] POWERCHART [facility] [id number] Specimen Anatomical Collection Method Collection Time Receive d Time (Source) Location / / Volume Laterality Throat 10/12/2016 8:15 AM 7 8:15 DEMOLITION CRANE OPERATOR AM DEMOLITION CRANE OPERATOR Marlyn Crocker APRN.N.P., D.N.P. LAB MICROBIOLOGY - GENERAL ORDERABLES Performing Organization Address City/State/ZIP Code Phon e Number POWERCHART Rapid Strep A Screen (10/12/2016 8:15 AM DEMOLITION CRANE OPERATOR) [facility] gist Method Time Signature HXStrep A POWERCHART Screen Rapid HXFinal Negative for POWERCHART Strep Group A by rapid screen. HXFinal Culture POWERCHART confirmation to follow. Specimen (Source) Anatomical Collection Method Collection Time Re ceived Time Location / / Volume Laterality Throat 10/12/2016 8:15 AM DEMOLITION CRANE OPERATOR Marlyn Crocker APRN.N.P., D.N.P. LAB MICROBIOLOGY - GENERAL ORDERABLES Performing Organization Address City/[facility] Code Phon e Number POWERCHART documented in this encounter Visit Diagnoses Not on filedocumented in this encounter Additional Health Concerns Assessment Noted Time PHQ-9 Depression Total Score: 11 12/13/2014 9:50 AM CD T documented as of this encounter
--- OUTSIDE RECORDS SUMMARY | 2022-07-03 10:41 | XMS_ITS | Encounter Summary ---
:1985 Author Organization [facility] Address [address] [place] [address] Care Team Providers Name Role Phone Unavailable Primary Care Provider Unavailable Encounter Details Date Type Department Care Team Description 03/15/2015 Hospital Encounter HX [facility] Barbra Vora M.D. [address] [place] [phone] (Wo rk) Social History Tobacco Use [...] How often do you attend zoroastrianism or yazidi More than 4 time s [...] Chang M.D. - 03/15/2015 9:12 AM CDT [id number] Document Contains Addenda REVISION HISTORY March 18, 2015 at 10:17 a.m. - Addendum added by Trev Chang M.D. The document below is the most current and includes the modifications. The patient has no history of narcolepsy in the past, but recently has been falling asleep more easily. She has to go to work in [employer] and one night at 10 p.m. as [...] a consultation with the pulmonary specialists at [facility]. She should take Zoloft 150 mg a.m. [...] CHANG MD On: 03/18/2015 03:53 PM Source: [facility] MHSDOLBEYNONRADSYS Document Id: [id number] documented in this encounter Miscellaneous Notes Miscellaneous - Trev Chang M.D. - 03/15/2015 10:16 AM CDT Ambulatory Patient Summary [address] [id number] Visit Information Name: PUNEET FRIED [facility] Number: [id number] Current Date: 03/15/2015 10:16:07 Physicians [...] a day Discontinue Velafaxine [facility] [address] [id number] SUMAtriptan (SUMAtriptan 50 mg oral tablet) 1 Tablet(s), Oral, as directed as needed for Migraine headache Take 1 tablet at onset of headache. Repeat after two hours if needed. traZODone (traZODone 50 mg oral tablet) 1 Tablet(s), Oral, once a day New Routed to [facility] [address] [address] Stop Taking the Following Medications: [...] Youll be asked for your [facility] number which you can find at the top of this document. Your Goals/Additional instructions: Puneet , please do not drive to work untill your sleep problem is resolved.Also see Neurologist in a month; need MRI Scan of Brain first. Source: [facility] POWERCHART Document Id: [id number] Miscellaneous - Trev Chang M.D. - 03/15/2015 10:16 AM CDT Ambulatory Discharge Medication List [address] [id number] Visit Information Name: FARIHA PUNEETCARRIE ALVARADO [facility] Number: [id number] Visit Date: 03/15/2015 10:16:05 Attending [...] a day Discontinue Velafaxine New Routed to [facility] [place] [address] SUMAtriptan (SUMAtriptan 50 mg oral tablet) 1 Tablet(s), Oral, as directed as needed for Migraine headache Take 1 tablet at onset of headache. Repeat after two hours if needed. traZODone (traZODone 50 mg oral tablet) 1 Tablet(s), Oral, once a day New [facility] to [facility] [address] [address] Stop Taking the Following Medications: Medication list [...] Signed By: Signed On: Additional Information: Source: [facility] POWERCHART Document Id: [id number] Miscellaneous - Trev Chang M.D. - 03/15/2015 10:13 AM CDT Addendum by TREV CHANG MD on 22 March 2015 08:51:25 CDT will do it today.Thanks Addendum by ADITYA HWANG on 15 March 2015 15:39:00 CDT From: ADITYA HWANG To: TREV CHANG MD; Sent: 03/15/2015 15:39:00 CDT ! Subject: FW: The dictation for this patient needs to be submitted LEN for the Referrals to [facility]. Addendum by ADITYA HWANG on 15 March 2015 14:28:10 CDT From: ADITYA HWANG To: ADITYA HWANG; Sent: 03/15/2015 14:28:10 CDT Subject: RE: Referral submitted via online. [facility] scheduling staff will contact patient with appt. info. From: TREV CHANG MD To: ADITYA HWANG; Sent: 03/15/2015 10:13:53 CDT Aditya, this patient,Puneet, has an extremely serious problem with sleep Apnea. Please arrange Consult with sleep Specialist SOON POSSIBLE. Study can follow. Source: [facility] POWERCHART Document Id: [id number] Electronically signed by Conversion, [facility] Workforce Analyst [id number] at 01/18/2017 12:33 AM CDT Miscellaneous - Mimi Herrera L.P.N. - 03/15/2015 9:36 AM CDT Adult Sheet Sorter Intake/History Adult Sheet Sorter Intake/History Entered On: 03/15/2015 9:39 CDT Performed [...] 03/15/2015 9:36 CDT General Info Languages : Kyrgyz Is Patient Female and [...] Use Packs/Day : 0.5 MIMI HERRERA LPN, RT - 03/15/2015 9:36 CDT Caffeine Use Grid Caffeine Use : Current Type : Coffee, Soft drinks Frequency : Occasionally MIMI HERRERA LPN, RT - 03/15/2015 9:36 CDT Recreational Drug Use Grid Drug Use : None MIMI HERRERA LPN, RT - 03/15/2015 9:36 CDT Source: [employer] Document Id: [id number] CDT!40 documented in this encounter Plan of Treatment Scheduled Procedures Name Priority Associated Diagnoses Date/Time COLONOSCOPY Diarrhea documented as of this encounter Visit Diagnoses Not on filedocumented in this encounter Additional Health Concerns Assessment Noted Time PHQ-9 Depression Total Score: 11 12/13/2014 9:50 AM CD T documented as of this encounter
--- OUTSIDE RECORDS SUMMARY | 2022-07-03 10:41 | XMS_ITS | Encounter Summary ---
:1985 Author Organization [facility] Address [address] [place] [address] Care Team Providers Name Role Phone Unavailable Primary Care Provider Unavailable Encounter Details Date Type Department Care Team Description 01/06/2016 Hospital Encounter HX [facility] ME Ashwin Bundy, P.A.-C. [address] [place], [place] [phone] (Wo rk) Social History Tobacco Use Types [...] How often do you attend christianity or alevism More than 4 time s [...] Ordered: OV Est Pt Level 4 - 26270 - 25 min Total time spent 25 minutes, 15 minutes counseling the patient regarding sun care for skin (no tanning beds, cover when in the sun and wear sun screen) and performing the above procedure. Electronically Signed By: CATRACHO THORNTON P.A.-C. On: 01/08/2016 07:59 AM Source: [facility] POWERCHART Document Id: [id number] documented in this encounter Miscellaneous Notes Miscellaneous [...] Patient ( ) ( ) Call for Mid Wife ( ) Follow up on Results ( ) Other: PROVIDER: ( ) Call Physician ( ) Call Pharmacist ( ) Call Lab ( ) Other: Special Instructions: Comments: Source: [facility] POWERCHART Document Id: [id number] Electronically signed by Roland, [facility] Strike On Machine Operator [id number] at 01/16/2017 3:01 PM CDT Miscellaneous - Catracho Thornton P.A.-C. - 01/09/2016 [...] Name Value 01/06/2016 09:25 Surg IV Accn-[place] [id number] 01/06/2016 09:25 Surg IV Addr-[place] See Comment 01/06/2016 09:25 Surg IV FnlDiag-[place] See Comment 01/06/2016 09:25 Surg IV Ref-[place] See Comment 01/06/2016 09:25 Surg IV SgnPath-[place] See Comment 01/06/2016 09:25 Surg IV Ts Desc-[place] See Comment [facility] Document Id: [id number] Leilani - Jude Cardona LBrittaneyP.N. - 01/06/2016 [...] CARDONA LPN - 01/06/2016 8:32 CDT [facility] Document Id: [id number] CDT!8 Leilani - Jude Cardona L.P.NBrittaney - 01/06/2016 8:25 AM CDT Adult Laborer/Grade Check Intake/History Adult Laborer/Grade Check Intake/History Entered On: 01/06/2016 8:29 CDT Performed [...] 01/06/2016 8:25 CDT General Info Languages : [place] Islander Is Patient Female and 13-50 no hysterectomy : Yes Status : Patient denies Are you ? 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 documented in this encounter Results Pathology Anatpath Wet Tissue (01/06/2016 9:25 AM CDT) [facility] Time Signature HXSurg IV [id number] POWERCHART [facility] HXSurg IV See Comment POWERCHART [facility] Comment: RESULT: Eusebio Nathan HXSurg IV Addr-[place] See Comment POWERCHA RT Comment: [facility] [facility] [address] [place] [address] SLIDE DISPOSITION: HXSurg IV [facility] See Comment POWER CHART Comment: [id number] A1 A. Received in formalin labeled with [...] nape of neck XRSR Path [facility] See Comment POWER CHART Comment: A. ??Skin, right neck, punch biopsy: ??L jacqueline irene. Participated in interpretation: Dr. Blane Shepherd. Pager: [phone]. As the signing pathologist, I verify fidelina t I have examined all relevant slides/materials for the specim en(s) and rendered or confirmed the diagnosis. HXSurg IV [facility] See Comment POWER CHART Comment: RESULT: 01/08/2016 15:55 Interpreted by: Lucas Lucia M.D. Report electronically signed by Lucas grey M.D. Transcribed by: amelia 01/08/2016 15:17:34 Test Performed by: [place] [address] Cane Weigher Helper: Rubio Marshall II, M.D., Ph.D. Specimen (Source) [...]
--- OUTSIDE RECORDS SUMMARY | 2022-07-03 10:41 | XMS_ITS | Encounter Summary ---
:1985 Author Organization [facility] Address [address] [place] [address] Care Team Providers Name Role Phone Unavailable Primary Care Provider Unavailable Encounter Details Date Type Department Care Team Description 04/22/2015 Hospital Encounter HX [facility] Nicci Gutiérrez D.O. [address] [place] [address] (Wo rk) Social History Tobacco [...] How often do you attend latter-day or latter day More than 4 time [...] CHIEF COMPLAINT/REASON FOR VISIT consult Denys in [place]/migraine headaches daily REFERRAL SOURCE Trev Mcfarlane MD [...] year old son. 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 Rarely drinks [...] tendon reflexes (with reinforcement) Babinski: Absent Coordination: Ecicqo-yb-eoez is normal. AMRs are normal. Sensation: Vibratory [...] scheduled to have a sleep study in [place] to evaluate whether this may be a [...] # 60 tab(s), 5 Refill(s), Maintenance, Pharmacy: [facility] [id number] Orders: SUMAtriptan, 100 mg = 1 tab(s), PO, As Directed, PRN Migraine headache, Take 1 tablet at onset of headache. Repeat after two hours if needed., # 18 tab(s), 5 Refill(s), Maintenance, Pharmacy: [facility] [id number] FOOTNOTES [1]MR Brain w/ + w/o contrast; CATHI MONTIEL 03/20/2015 10:30 CDT Electronically Signed By: MARIAELENA GUTIÉRREZ DO On: 04/22/2015 12:01 PM Source: [facility] BOARDZ Document Id: [id number] documented in this encounter Nursing Notes Mariaelena Gutiérrez D.O. - 04/22/2015 11:30 AM CDT Ambulatory Patient Education The following Patient Education Materials have been given to the patient: Patient Education Materials: Source: [facility] Document Id: [id number] documented in this encounter Miscellaneous Notes Miscellaneous - Mariaelena Gutiérrez D.O. - 04/22/2015 11:30 AM CDT Ambulatory Patient Summary [facility] [address], [address] [place], [place] [phone] Visit Information Name: PUNEET FRIED [facility] Number: [id number] Current Date: 04/22/2015 11:30:34 Physicians Attending Provider: MARAIELENA GUTIÉRREZ DO Primary Care Provider: ALISON LOREDO PA-C FARIHA PUNEET ALVARADO has been given the following list of follow-up instructions, medication list, and patient education materials: Follow-up Instructions With: Address: When: MARIAELENA GUTIÉRREZ [address] [place] [address] [place] [address] [email or web address] (1) In 3 months 07/22/2015 Comments: Do [...] if needed. This is a CHANGE [address] [place] [address] [place]OS[place] [id number] topiramate (topiramate 25 mg oral tablet) 2 Tablet(s), Oral, once a day 1 tab at bedtime x 3 days, then 1 2x day x 3 days, then 1 in AM and 2 HS x 3 days, then 2 tabs 2x day New Routed to [place] [address] [place] [id number] Stop Taking [...] if you dont have one. Go to [email or web address] and click on Create Your Account. Then, follow the directions to complete the online form. Youll be asked for your [facility] number which you can find at the top of this document. Your Goals/Additional instructions: Source: [facility] POWERCHART Document Id: [id number] Miscellaneous - Mariaelena Gutiérrez D.O. - 04/22/2015 11:30 AM CDT Ambulatory Discharge Medication List [facility] [address], [address] [place], [place] [phone] Visit Information Name: PUNEET FRIED [facility] Number: [id number] Visit Date: 04/22/2015 11:30:32 Attending [...] if needed. This is a CHANGE [address] [place] [address] [place] [id number] topiramate (topiramate 25 mg oral tablet) 2 Tablet(s), Oral, once a day 1 tab at bedtime x 3 days, then 1 2x day x 3 days, then 1 in AM and 2 HS x 3 days, then 2 tabs 2x day New Routed to [place] [address] [place] [id number] Stop Taking the Following Medications: EPINEPHrine (EpiPen [...] By: MARIAELENA GUTIÉRREZ DO Signed On:22-APR-2015 11:29:21 Additional Information: Source: [facility] POWERCHART Document Id: [id number] Miscellaneous - Sima Mccormick, LiorPBrittaneyN. - 04/22/2015 10:39 AM CDT Adult Business Information Manager Intake/History Adult Business Information Manager Intake/History Entered On: 04/22/2015 10:47 CDT Performed On: 04/22/2015 10:39 CDT by SIMA MCCORMICK LPN Intake Chief Complaint : consult Lagalwar in [place]/migraine headaches daily Temperature Core : 35.8 DegC(Converted [...] Preferred Communication Mode : Verbal Languages : Australian Is Patient Female and 13-50 no hysterectomy [...] MCCORMICK LPN - 04/22/2015 10:39 CDT Source: [facility] Document Id: [id number] CDT!54 documented in this encounter Plan of Treatment Scheduled Procedures Name Priority Associated Diagnoses Date/Time COLONOSCOPY Diarrhea documented as of this encounter Visit Diagnoses Not on filedocumented in this encounter Additional Health Concerns Assessment Noted Time PHQ-9 Depression Total Score: 11 12/13/2014 9:50 AM CD T documented as of this encounter
--- OUTSIDE RECORDS SUMMARY | 2022-07-03 10:41 | XMS_ITS | Encounter Summary ---
:1985 Author Organization [facility] Address [address] [place] [address] Care Team Providers Name Role Phone Unavailable Primary Care Provider Unavailable Encounter Details Date Type Department Care Team Description 01/15/2016 Hospital Encounter HX [facility] Kyle Colmenares M .D., M.P.H. [address] [place], [place] [phone] (Wo rk) Social History [...] How often do you attend confucianist or congregational More than 4 time s [...] HINDS RN On: 01/15/2016 10:21 AM Source: [facility] POWERCHART Document Id: [id number] documented in this encounter Plan of Treatment [...] M.Tuberculos-M piyush HXTB Ag 0.00 INTUML POWERCHART Value-Marion Comment: ADDITIONAL INFORMATIO N This is a [...] when interpreting QuantiFERON-TB results. Test Performed by: [facility] [address] [place], [place] [address] Pre K Lead Teacher: Rubio aMrshall II, M.D., Ph.D. Specimen (Source) Anatomical Collection Method Collection Time Re ceived Time Location / / Volume Laterality Blood 01/15/2016 10:39 AM CDT Kyle Coleman M.D., M.P.H. LAB MICROBIOLOGY - BLOOD O BOBBY Performing Organization Address [facility] Phon e Number POWERCHART Mumps Ab, IgG (01/15/2016 10:39 AM CDT) P athologist Signature Mumps Ab, IgG, Positive POWERCHART S Comment: Results suggest response to immunization or prior exposure to the virus. REFERENCE VALUE------ Vaccinated: Positive (>=1.1 AI) Unvaccinated: Negative (<=0.8 AI) Mumps Ab, IgG, S 3.3 POWERCHART Comment: Test Performed by: [facility] [place] [address] Pre K Lead Teacher: Rubio Marshall II, M.D., Ph.D. Specimen (Source) Anatomical Collection Method Collection Time Re ceived Time Location / / Volume Laterality Blood 01/15/2016 10:39 AM CDT Kyle Coleman M.D., M.P.HBrittaney LAB MICROBIOLOGY - BLOOD O BOBBY Performing Organization Address [facility] Phon e Number POWERCHART Rubella Antibodies, IgG (01/15/2016 10:39 AM CDT) P athologist Signature HX Rubella Positive POWERCHART [facility] Comment: Results suggest response to immunization or prior exposure to the virus. REFERENCE VALUE------ Vaccinated: Positive (>=1.0 AI) Unvaccinated: Negative (<=0.7 AI) Rubella IgG Antibody Index 1.2 POW ERCHART Comment: Test Performed by: [place] [id number] Pre K Lead Teacher: Rubio Marshall II, M.D., Ph.D. Specimen (Source) Anatomical Collection Method Collection Time Re ceived Time Location / / Volume Laterality Blood 01/15/2016 10:39 AM CDT Kyle Coleman M.D., M.P.H. LAB MICROBIOLOGY - BLOOD O BOBBY Performing Organization Address [facility] Phon e Number POWERCHART Measles (Rubeola) Ab, IgG (01/15/2016 10:39 AM CDT) P athologist Signature Measles Positive POWERCHART (Rubeola) Ab, IgG, S Comment: Results suggest response to immunization or prior exposure to the virus. REFERENCE VALUE------ Vaccinated: Positive (>=1.1 AI) Unvaccinated: Negative (<=0.8 AI) Measles IgG Antibody Index 1.4 POW ERCHART Comment: Test Performed by: [address] [address] Pre K Lead Teacher: Rubio Marshall II, M.D., Ph.D. Specimen (Source) Anatomical Collection Method Collection Time Re ceived Time Location / / Volume Laterality Blood 01/15/2016 10:39 AM CDT Kyle Coleman M.D., M.P.H. LAB MICROBIOLOGY - BLOOD O BOBBY Performing Organization Address [facility] Phon e Number POWERCHART Varicella-Zoster Antibody, IgG (01/15/2016 10:39 AM CDT) P athologist Signature Varicella-Zost Negative POWERCHART er Ab, IgG, S Comment: REFERENCE VALUE------ Vaccinated: Positive (>=1.1 AI) Unvaccinated: Negative (<=0.8 AI) Varicella-Zoster Ab, IgG, S 0.2 PO WERCHART Comment: Test Performed by: [place] [address] Pre K Lead Teacher: Rubio Marshall II, M.D., Ph.D. Specimen (Source) [...]
--- OUTSIDE RECORDS SUMMARY | 2022-07-03 10:41 | XMS_ITS | Encounter Summary ---
:1985 Author Organization [facility] Address [address] [place] [address] Care Team Providers Name Role Phone Unavailable Primary Care Provider Unavailable Encounter Details Date Type Department Care Team Description 01/15/[address] [facility] Kyle Colmenares M .D., M.P.H. [address] [place], [place] [phone] (Wo rk) Social History [...] How often do you attend scientologist or confucianism More than 4 time s [...] BEAN LPN - 01/15/2016 10:12 CDT Source: [facility] POWERCHART Document Id: [id number] CDT!3 documented in this encounter Plan of Treatment Scheduled Procedures Name Priority Associated Diagnoses Date/Time COLONOSCOPY Diarrhea documented as of this encounter Visit Diagnoses Not on filedocumented in this encounter Additional Health Concerns Assessment Noted Time PHQ-9 Depression Total Score: 11 12/13/2014 9:50 AM CD T documented as of this encounter
--- OUTSIDE RECORDS SUMMARY | 2022-07-03 10:41 | XMS_ITS | Encounter Summary ---
:1985 Author Organization [facility] Address [address] [place] [address] Care Team Providers Name Role Phone Unavailable Primary Care Provider Unavailable Encounter Details Date Type Department Care Team Description 03/20/2015 Hospital Encounter [facility] Barbra Yancey M.D. [address] [place] [phone] (Wo rk) Social History Tobacco Use [...] How often do you attend religious or bahai More than 4 time s [...] Summary-Paper Based CODING DATE: 03/28/2015 FINAL [place] [facility] STATUS: * Discharged to Home [...] ZENG Date Saved: 03/28/2015 07:42 am Source: [employer] POWERCHART Document Id: [id number] documented in this encounter Plan of Treatment Scheduled Procedures Name Priority Associated Diagnoses Date/Time COLONOSCOPY Diarrhea documented as of this encounter Visit Diagnoses Not on filedocumented in this encounter Additional Health Concerns Assessment Noted Time PHQ-9 Depression Total Score: 11 12/13/2014 9:50 AM CD T documented as of this encounter
--- OUTSIDE RECORDS SUMMARY | 2022-07-03 10:41 | XMS_ITS | Encounter Summary ---
:1985 Author Organization [facility] Address [address] [place] [address] Care Team Providers Name Role Phone Unavailable Primary Care Provider Unavailable Encounter Details Date Type Department Care Team Description 03/05/2015 Hospital En[facility] Jono Freedman M.D. [address] [place] [address] Social History Tobacco Use Types Packs/Day [...] How often do you attend amish or druze More than 4 time s [...] Zavala M.D. - 03/05/2015 11:30 AM CDT [id number] CHIEF COMPLAINT/REASON FOR VISIT Throat infection. HISTORY OF PRESENT ILLNESS Puneet is a 29-year-old who comes in to see me with a 1-week history of a sore throat. She saw Dr. Alisha black in [place] on 02/27. A throat culture done was [...] left side. She saw Dr. Snyder in [place]. A CT scan suggested a left multiloculated peritonsillar abscess. She has not had a lot of problems with her tonsils previously. She does smoke less than a half a pack of cigarettes per day. She has not had throat infection of this nature previously. New patient questionnaire and medical history in [facility] reviewed. PAST MEDICAL/SURGICAL HISTORY PAST MEDICAL HISTORY: Include a history of migraines. PREVIOUS HEAD AND NECK SURGERIES: None indicated. FAMILY HISTORY Negative for bleeding disorders. ALLERGIES Penicillin. 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 Does not drink alcohol, but does smoke somewhat of less than a pack of cigarettes per day. SYSTEMS REVIEW Positive for headaches. Others are negative. MEDICATIONS Listed and reviewed in [facility]. PHYSICAL EXAMINATION She is afebrile. She [...] Thelma Zavala M.D./robb cc: Parth Snyder M.D. [address] [address] Electronically Signed By: THELMA ZAVALA MD On: 03/05/2015 03:00 PM Source: [facility] MHSDOLBEYNMARGOT Document Id: [id number] documented in this encounter Miscellaneous Notes Telephone Encounter - Thelma Zavala M.D. - 03/11/2015 12:00 AM CDT [id number] Puneet is a 29-year-old who I saw [...] ZAVALA MD On: 03/11/2015 09:42 AM Source: [facility] MHSDOLBEYNONRADSYS Document Id: [id number] Telephone Encounter - Sarina Mark R.N. - [...] is she had any further concerns. Source: [facility] POWERCHART Document Id: [id number] Electronically signed by [facility] Workman [id number] at 01/17/2017 7:14 PM CDT Miscellaneous - Thelma Zavala M.D. - 03/05/2015 12:10 PM CDT Ambulatory Patient Summary [facility] [address], [address] [place] [phone] Visit Information Name: PUNEET FRIED [facility] Number: [id number] Current Date: 03/05/2015 12:10:53 Physicians [...] day x 10 day(s) New Routed to [address] [address] EPINEPHrine (EpiPen Auto-Injector 0.3 mg injectable kit) [...] if you dont have one. Go to [email or web address] and click on Create Your Account. Then, follow the directions to complete the online form. Youll be asked for your [facility] number which you can find at the top of this document. Your Goals/Additional instructions: Source: [facility] POWERCHART Document Id: [id number] Miscellaneous - Thelma Zavala M.D. - 03/05/2015 12:10 PM CDT Ambulatory Discharge Medication List [facility] [address], [address] [place] [phone] Visit Information Name: PUNEET FRIED [facility] Number: [id number] Visit Date: 03/05/2015 12:10:51 Attending [...] day x 10 day(s) New Routed to [address] [address] EPINEPHrine (EpiPen Auto-Injector 0.3 mg injectable kit) [...] MD Signed On:05-MAR-2015 12:10:43 Additional Information: Source: [facility] POWERCHART Document Id: [id number] Miscellaneous - Mariaelena Dominguez, R.N. - 03/05/2015 11:36 AM CDT Adult Stacker Intake/History Adult Stacker Intake/History Entered On: 03/05/2015 11:40 CDT Performed On: 03/05/2015 11:36 CDT by MARIAELENA DOMINGUEZ chemistry manager Chief Complaint : left peritonsillar abcess Temperature [...] Information Given By : Patient Languages : Nepalese Is Patient Female and 13-50 no hysterectomy [...] MARIAELENA DOMINGUEZ - 03/05/2015 11:36 CDT Source: [facility] SoundSenasationCHART Document Id: [id number] CDT!41 documented in this encounter Plan of Treatment Scheduled Procedures Name Priority Associated Diagnoses Date/Time COLONOSCOPY Diarrhea documented as of this encounter Procedures Procedure Name Priority Date/Time Associated Diagnosis Comme nts BACTERIAL CULTURE, Routine 03/05/2015 12:01 PM Re sults for this AEROBIC CDT procedure are i n the results section. documented in this encounter Results (ABNORMAL) Bacterial Culture, Aerobic (03/05/2015 12:01 PM CDT) [facility] gist Method Time Signature Wound Culture [...]
--- OUTSIDE RECORDS SUMMARY | 2022-07-03 10:41 | XMS_ITS | Encounter Summary ---
:1985 Author Organization [facility] Address [address] [place] [address] Care Team Providers Name Role Phone Unavailable Primary Care Provider Unavailable Encounter Details Date Type Department Care Team Description 03/02/2015 [facility] Berny Llamas M.D. [address] [place], [place] [phone] (Wo rk) Social History [...] How often do you attend taoist or scientologist More than 4 time s [...] 03/02/2015 10:41 PM CDT ED Discharge Instructions [address] [place] [address] Name: PUNEET FRIED Date of : 1985 12:00 AM Visit Date: 03/02/2015 10:12 PM [facility] Number: [id number] Address: [address] [place] [phone] Primary Care Provider: ALISON MONACO PA-C IMPORTANT: [facility] [place] would like to thank you for allowing us to assist you with your healthcare needs. The following includes patient education materials and information regarding your injury/illness. Diagnosis: Strep Throat Pharyngitis Follow-Up Instructions: With: Address: When: ALISON MONACO [address] [place] [phone] Business (1) In 2 days 03/04/2015 Comments: [...] with strep throat more comfortable: Try soft, gvka-qn-djzozbd foods, such as soup, applesauce, and yogurt. [...] ?? Shortness of breath ?? Rash ?? [phone] Cecil Paez, [address] [place] [address], [place] [address]. All rights reserved. This information is not [...] if you dont have one. Go to [email or web address] and click on Create Your Account. Then, follow the directions to complete the online form. Youll be asked for your [facility] number which you can find at [...] Libertarian/Relationship Date Time Provider Signature Date Time IMPORTANT: [...] a ride home with a responsible republican. I, PUNEET FRIED , or responsible republican have received this information and my questions have been answered. I have discussed any challenges I see with this plan with the nurse or physician. Patient Signature or Responsible Libertarian/Relationship Date Time Provider Signature Date Time This document has images extracted. Please consider using [employer] for all your patient education needs. Source: [facility] POWERCHART Document Id: [id number] Kavitha Saha R.N. - 03/02/2015 10:41 PM CDT ED Depart Summary [facility] Emergency Department Clinical Discharge Summary PERSON INFORMATION Name PUNEET FRIED Age 29 Years 1985 12:00 AM Sex Female Language Panamanian PCP ALISON MONACO PA-C Marital Status Single Visit Id Visit Reason Facial swelling; UC - Sore Throat; sore throat, facial swelling Specialty Enc Type Emergency Med Service Emergency Medicine Referred by Track Group [facility] ED Discharge 03/02/2015 10:35 PM Tracking Id [id number] Checkout 03/02/2015 10:35 PM Checkin 03/02/2015 10:12 PM Acuity 3 -Urgent Dispo Type * Discharged to Home or Self Care Arrival 03/02/2015 10:12 PM Reg Status Complete LOS 000 00:23 Address: [address] [place] [phone] Comment: PROVIDER INFORMATION Provider Role Provider Contact Time KAVITHA SAHA CAN CLOSING MACHINE TENDER Nurse 03/02/15 22:16 BERNY GARCIA MD ED Provider 03/02/15 22:17 DIAGNOSIS Strep Throat Pharyngitis Comment: PATIENT EDUCATION INFORMATION Instructions: Strep Throat Follow up: With: Address: When: ALISON MONACO [address] [place] [address] [phone] Business (8) In 2 days 03/04/2015 Comments: For recheck if not resolving Source: [employer] [facility] Document Id: [id number] documented in this encounter ED Notes Kavitha [...] SAHA RN - 03/02/2015 22:40 CDT Source: [employer] [facility] Document Id: [id number] CDT!9 Berny Garcia M.D. - 03/02/2015 10:18 [...] and with a positive rapid strep in [place] 2 days ago. She is on Keflex [...] Headache Abuse Tobacco Smoking NOS (305.1) Resolved ([id number]): Resolved on 01/03/2008 at 22 years.. Surgical history: Pap smear ([id number]) on 01/25/2013 at 27 Years. Pap smear ([id number]) on 01/25/2013 at 27 Years.. Family history: [...] Headache / V22.2 / Confirmed Resolved: / [id number]. Physical Examination Vital Signs: Vital Signs 03/02/2015 [...] Stable. Disposition: Discharged: to home. Prescriptions: Prescription [facility]: Zithromax (Order Processing): 500 mg, PO, Once, Prescription [facility]: Zithromax 250 mg oral tablet (Prescribe): [...] GARCIA MD On: 03/02/2015 10:28 PM Source: [facility] QingguoCHART Document Id: [id number]} Kavitha Saha RBrittaneyN. - 03/02/2015 10:17 PM [...] Medical ; Code: 305.1 ; Contributor System: AuspherixChart ; Last Updated: 12/12/2014 9:21 CDT ; [...] Medical ; Code: 784.0 ; Contributor System: AuspherixChart ; Last Updated: 12/12/2014 9:11 CDT ; Life Cycle Status: Active ; Vocabulary: ICD-9-CM ; Comments: - Headache Headache Migraine (ICD-9-CM :346.90 ) Name of Problem: Headache Migraine ; Onset Date: 01/21/2012 ; Recorder: RABIA NATHAN MD; Confirmation: Confirmed ; Classification: Medical ; Code: 346.90 ; Contributor System: AuspherixChart ; Last Updated: 12/12/2014 9:11 CDT ; [...] PNED ; Probability: 0 ; Diagnosis Code: [id number] UC - Sore Throat Date: 03/02/2015 ; Diagnosis Type: Reason For Visit ; Confirmation: Complaint of ; Clinical Dx: UC - Sore Throat ; Classification: Medical ; Clinical Service: Emergency medicine ; Code: PNED ; Probability: 0 ; Diagnosis Code: [id number] Triage Chief Complaint Description : diagnosed with strep on Tues, on Keflex and Prednisone. today left side of face swollen in am, feels like something lodged in throat, hurts to turn head to left Information Given By : Patient Accompanied By : Alone Mode of Arrival ED : Private vehicle, Ambulatory Track : Medical Languages : Panamanian Patient Informed of Triage Location : Emergency [...] Acuity : 3 -Urgent Tracking Group : [facility] ED KAVITHA SAHA SHRUTHI 03/02/2015 22:17 [...] SAHA RN - 03/02/2015 22:17 CDT Source: [employer] [facility] Document Id: [id number] CDT!84 documented in this encounter Miscellaneous Notes Miscellaneous - Conversion, Historical Provider Ser - 03/02/2015 10:35 PM CDT Coding Summary-Paper Based CODING DATE: 03/14/2015 FINAL [facility] STATUS: * Discharged to Home or Self Care PAYOR: [facility] ADMIT DX: [id number] Acute Pharyngitis REASON FOR [...] result in slightly different terminology. Coded By: SILM SORTO Date Saved: 03/14/2015 02:40 pm Source: [employer] Document Id: [id number] Miscellaneous - Kavitha Saha R.N. - 03/02/2015 [...] SAHA RN - 03/02/2015 22:40 CDT Source: [employer] Document Id: [id number] CDT!8 Miscellaneous - Kavitha Saha R.N. - [...] Control : 5 Lynx Visit Level : [address] Level 2 Treatments Prior to Arrival : Home treatments KAVITHA SAHA RN - 03/02/2015 22:40 CDT Source: [employer] [facility] Document Id: [id number] CDT!18 documented in this encounter Plan of Treatment Scheduled Procedures Name Priority Associated Diagnoses Date/Time COLONOSCOPY Diarrhea documented as of this encounter Visit Diagnoses Not on filedocumented in this encounter Additional Health Concerns Assessment Noted Time PHQ-9 Depression Total Score: 11 12/13/2014 9:50 AM CD T documented as of this encounter
--- OUTSIDE RECORDS SUMMARY | 2022-07-03 10:41 | XMS_ITS | Encounter Summary ---
:1985 Author Organization [facility] Address [address] [place] [address] Care Team Providers Name Role Phone Unavailable Primary Care Provider Unavailable Encounter Details Date Type Department Care Team Description 12/13/2014 Hospital Encounter HX [facility] Maureen Berman P.A.-C., M.S. [address] [place] [phone] (Wo rk) Social History Tobacco Use Types [...] How often do you attend amish or judaism More than 4 time s [...] P.A.-C., M.S. - 12/13/2014 9:40 AM CDT [id number] CHIEF COMPLAINT/REASON FOR VISIT Recheck headaches. HISTORY [...] MONACO PA-C On: 12/20/2014 09:46 AM Source: [facility] MHSDOLBEYNONRADSYS Document Id: [id number] documented in this encounter Nursing Notes Alison [...] open cavity, apply OIL OF CLOVES (available rkwr-qic-pfweeqa in drug stores) directly to the tooth to reduce pain. Some pharmacies carry an aljd-sfh-qxcoaiu toothache kit. This contains a paste, which [...] tooth ?? Difficulty swallowing or breathing ?? [id number], [place] [address]. All rights reserved. This information is not intended as a substitute for professional medical care. Always follow your healthcare professional's instructions. This document has images extracted. Please consider using [employer] for all your patient education needs. Source: [facility] POWERCHART Document Id: [id number] Glen Graf L.P.N. - 12/13/2014 10:15 AM [...] GRAF LPN - 12/13/2014 10:15 CDT Source: [facility] POWERCHART Document Id: [id number] CDT!8 documented in this encounter Miscellaneous Notes Miscellaneous - Chandrika Ruffin R.N. - 12/13/2014 4:02 PM CDT [...] 3 Substitutions Allowed Route To Pharmacy - [facility] Other (See Comment) Already done. Signed by [...] 3 Substitutions Allowed Route To Pharmacy - [facility] [id number] Tablet form not available. Please switch to capsule Source: [facility] POWERCHART Document Id: [id number] Miscellaneous - Alison Berman P.A.-C., M.S. - 12/13/2014 10:41 AM CDT Ambulatory Patient Summary [facility] [address], [address] Marko Fonseca [place] [phone] Visit Information Name: PUNEET FRIED [facility] Number: [id number] Current Date: 12/13/2014 10:41:40 Physicians [...] hours x 7 day(s) New Routed to [place] [address] [place] [phone] HYDROcodone-acetaminophen (Vicodin 5 mg-300 mg oral tablet) [...] after two hours if needed. Routed to [facility] [address] [place] [phone] venlafaxine (venlafaxine 37.5 mg oral tablet, extended release) 1 Tablet(s), Oral, once a day 1 tab daily x 1 week. Then increase to 2 tabs daily as tolerated. New Routed to [place] [address] [place] [phone] Stop Taking the Following Medications: amitriptyline (amitriptyline [...] open cavity, apply OIL OF CLOVES (available vlwz-jko-csoghxr in drug stores) directly to the tooth to reduce pain. Some pharmacies carry an segf-tsi-thlnbbg toothache kit. This contains a paste, which [...] tooth ?? Difficulty swallowing or breathing ?? 4543-1288 [place] [address]. All rights reserved. This information is not intended as a substitute for professional medical care. Always follow your healthcare professional's instructions. Your Goals/Additional instructions: This document has images extracted. Please consider using [employer] for all your patient education needs. Source: [facility] POWERCHART Document Id: [id number] Miscellaneous - Alison Berman P.A.-C., M.S. - 12/13/2014 10:41 AM CDT Ambulatory Discharge Medication List [facility] [address], [address] [place], [place] [phone] Visit Information Name: PUNEET FRIED [facility] Number: [id number] Visit Date: 12/13/2014 10:41:39 Attending [...] hours x 7 day(s) New Routed to [place] [address] [place] [phone] HYDROcodone-acetaminophen (Vicodin 5 mg-300 mg oral tablet) 1 Tablet(s), Oral, every 6 hours as needed for Pain No more than 4,000mg acetaminophen/24hrs New Routed to [facility] ibuprofen (ibuprofen 200 mg oral tablet) See Instructions 3-4 tabs prn SUMAtriptan (SUMAtriptan 50 mg oral tablet) 1 Tablet(s), Oral, as directed as needed for Migraine headache Take 1 tablet at onset of headache. Repeat after two hours if needed. Routed to [place] [address] [place] [phone] venlafaxine (venlafaxine 37.5 mg oral tablet, extended release) 1 Tablet(s), Oral, once a day 1 tab daily x 1 week. Then increase to 2 tabs daily as tolerated. New Routed to [place] [address] [place] [phone] Stop Taking the Following Medications: amitriptyline (amitriptyline [...] PA-C Signed On:13-DEC-2014 10:41:02 Additional Information: Source: [facility] POWERCHART Document Id: [id number] Miscellaneous - Glen Graf L.P.N. - 12/13/2014 [...] GRAF LPN - 12/13/2014 9:50 CDT Source: [employer] Document Id: [id number] CDT!13 Miscellaneous - Glen Graf L.P.N. 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 Saute Chef Intake/History Adult Saute Chef Intake/History Entered On: 12/13/2014 9:50 CDT Performed [...] Information Given By : Patient Languages : Chilean Is Patient Female and 13-50 no hysterectomy [...] GLEN GRAF LPN 12/13/2014 9:48 CDT Source: [employer] Document Id: [id number] CDT!50 documented in this encounter Plan of Treatment Scheduled Procedures Name Priority Associated Diagnoses Date/Time COLONOSCOPY Diarrhea documented as of this encounter Visit Diagnoses Not on filedocumented in this encounter Additional Health Concerns Assessment Noted Time PHQ-9 Depression Total Score: 11 12/13/2014 9:50 AM CD T documented as of this encounter
--- OUTSIDE RECORDS SUMMARY | 2022-07-03 10:41 | XMS_ITS | Encounter Summary ---
:1985 Author Organization [facility] Address [address] [place] [address] Care Team Providers Name Role Phone Unavailable Primary Care Provider Unavailable Encounter Details Date Type Department Care Team Description 02/27/2015 Hospital Encounter HX [facility] 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 Patient was also given a script for prednisone to help with the swelling. Ordered: OV Est Pt Level 3 - 83388 - 15 min Orders: cephalexin, 500 mg = 1 cap(s), PO, 2xDay, x 10 day(s), # 20 cap(s), 0 Refill(s), Acute, Pharmacy: [facility] predniSONE, 40 mg = 2 tab(s), PO, Daily, x 5 day(s), # 10 tab(s), 0 Refill(s), Acute, Pharmacy: [facility] Electronically Signed By: LEONORA NATHAN MD On: 02/27/2015 08:25 AM Source: [facility] POWERCHART Document Id: [id number] documented in this encounter Miscellaneous Notes Miscellaneous - Roosevelt Rodriges L.PBrittaneyNBrittaney - 02/27/2015 1:00 PM CDT Quality Measures Quality Measures Entered On: 03/07/2015 13:00 CDT Performed On: 02/27/2015 13:00 CDT by ROOSEVELT RODRIGES LPN Depression PHQ-9 Score : 0 ROOSEVELT RODRIGES LPN - 03/07/2015 13:00 CDT [facility] Document Id: [id number] CDT!3 Miscellaneous - Leonora Farias M.D. - 02/27/2015 7:39 AM CDT Work Excuse 27 February 2015 PUNEET FRIED [address] [place] [phone] Dear PUNEET FRIED, You were examined in [...] date: 02/28/2015 Notes: _ Sincerely, LEONORA NATHAN [address] [phone] Electronic Signature Electronically Signed By: LEONORA NATHAN MD On: 27 February 2015 This document has images extracted. [facility]: [facility] Document Id: [id number] Electronically signed by Roland [facility] Garbage Collector Driver [id number] at 01/17/2017 7:14 PM CDT Miscellaneous - Leonora Farias M.D. - 02/27/2015 7:38 AM CDT Ambulatory Patient Summary [address] 24 [facility] [place] [phone] Visit Information Name: PUNEET FRIED [facility] Number: [id number] Current Date: 02/27/2015 07:38:28 [...] x 10 day(s) New Routed to [facility] [address] [place] [address] EPINEPHrine (EpiPen Auto-Injector 0.3 mg injectable kit) [...] day x 5 day(s) New Routed to [facility] [address] SUMAtriptan (SUMAtriptan 50 mg oral tablet) 1 [...] if you dont have one. Go to [email or web address] and click on Create Your Account. Then, follow the directions to complete the online form. Youll be asked for your [facility] number which you can find at the top of this document. Your Goals/Additional instructions: Source: [facility] POWERCHART Document Id: [id number] Miscellaneous - Leonora Farias M.D. - 02/27/2015 7:38 AM CDT Ambulatory Discharge Medication List [address] [id number] Visit Information Name: PUNEET FRIED [facility] Number: [id number] Visit Date: 02/27/2015 07:38:26 Attending Provider: LEONORA NAHTAN MD Primary Care Provider: ALISON MONACO PA-C [...] day x 10 day(s) New Routed to [address] [address] EPINEPHrine (EpiPen Auto-Injector 0.3 mg injectable kit) [...] day x 5 day(s) New Routed to [address] [address] SUMAtriptan (SUMAtriptan 50 mg oral tablet) 1 [...] MD Signed On:27-FEB-2015 07:38:18 Additional Information: Source: [facility] POWERCHART Document Id: [id number] Miscellaneous - Trace Khan, L.P.N. - 02/27/2015 7:10 AM CDT Adult Embedded Engineer Intake/History Document Has Been Updated Adult Embedded Engineer Intake/History Entered On: 02/27/2015 7:10 CDT Performed [...] Preferred Communication Mode : Verbal Languages : Faroese Is Patient Female and 13-50 no hysterectomy : Yes Status : Patient denies Are you ? : No TRACE KHAN [facility] FIRST - 02/27/2015 7:10 CDT Subjective Pain Symptoms : No [facility] - 02/27/2015 7:10 CDT Dependent Habits Tobacco Use/Currently Using : Yes Tobacco Use/Advised to Quit : Yes Exposure to Tobacco Smoke : Patient smokes Smoking Status : Current every day smoker [facility] - 02/27/2015 7:10 CDT Tobacco Use Grid Type : Cigarettes Cigarette Use Packs/Day : 0.[address] [facility] - 02/27/2015 7:10 CDT Alcohol Use : No [facility] - 02/27/2015 7:12 CDT Caffeine Use Grid Caffeine Use : Current Type : Coffee, Soft drinks Frequency : Occasionally [facility] - 02/27/2015 7:[address] [facility] - 02/27/2015 7:10 CDT Recreational Drug Use Grid Drug Use : None [facility] - 02/27/2015 7:10 CDT Source: [facility] [employer] Document Id: [id number] CDT!21 documented in this encounter Plan of [...] Strep A Screen (02/27/2015 7:10 AM CDT) [facility] gist Method Time Signature HXStrep A [...]
--- OUTSIDE RECORDS SUMMARY | 2022-07-03 10:41 | XMS_ITS | Encounter Summary ---
:1985 Author Organization [facility] Address [address] [place] [address] Care Team Providers Name Role Phone Unavailable Primary Care Provider Unavailable Encounter Details Date Type Department Care Team Description 10/29/2016 [facility] Maureen Hooker, STATE'S ATTORNEY, C.N.P., D. N.P. [address] [place] [phone] (Wo rk) Social History [...] Comments Blood Pressure 144/90 10/29/2016 9:32 AM BODY TRIMMER UPHOLSTERER Pulse 104 10/29/2016 9:32 AM BODY TRIMMER UPHOLSTERER Temperature - - Respiratory Rate 20 10/29/2016 9:28 AM BODY TRIMMER UPHOLSTERER Oxygen Saturation - - Inhaled Oxygen Concentration - - Weight 149 kg (329 lb 5.9 oz) 10/29/2016 9:28 AM BODY TRIMMER UPHOLSTERER Height 157 cm (5' 1.81) 10/29/2016 9:32 AM BODY TRIMMER UPHOLSTERER Body Mass Index 60.61 10/29/2016 9:28 AM BODY TRIMMER UPHOLSTERER documented in this encounter Medications at Time [...] Panel OV Est Pt Level 4 - 77777 - 25 min 2. Missed Menses test is POSITIVE today. She was advised to start a vitamin today and follow up with her OBGYN soon for her first ultrasound. Ordered: OV Est Pt Level 4 - 75218 - 25 min 3. Headache Migraine Tylenol for migraines. We will also trial a 2-week course of an antihistamine and flonase nasal spray for possible sinus headaches. Ordered: OV Est Pt Level 4 - 64340 - 25 min Sinusitis Allergic See #2. Ordered: fluticasone nasal, 2 spray(s), Nostrils(Both), Daily, allergies, # 16 gm, 4 Refill(s), Maintenance,Pharmacy: [facility] loratadine, 10 mg = 1 tab(s), PO, Daily, x 30 day(s), # 30 tab(s), 11 Refill(s), Acute, over the counter medication (Rx) OV Est Pt Level 4 - 06791 - 25 min Patient was instructed to [...] C.N.P., D.N.P On: 10/29/2016 12:26 PM Source: [facility] POWERCHART Document Id: [id number] TRIMMER UPHOLSTERER documented in this encounter Miscellaneous Notes Miscellaneous - Rylee Hooker APRN, C.N.P., Priti.N.P. - 10/29/2016 10:07 AM BODY TRIMMER UPHOLSTERER Ambulatory Patient Summary [address] [place] [id number] Visit Information Name: PUNEET CLAYTON [facility] Number: [id number] Current Date: 10/29/2016 10:07:20 Physicians [...] nasal (Flonase 50 mcg/inh nasal spray) 2 [place](s), Nostrils(Both), once a day allergies New Routed to [address] [id number] furosemide (furosemide 20 mg oral tablet) 1 Tablet(s), Oral, once a day swelling New Routed to [facility] [address] [place] [address] ibuprofen (ibuprofen 400 mg oral tablet) 1 Tablet(s), Oral, every 4 hours as needed for Pain / FeverTake with food loratadine (Claritin 10 mg oral tablet) 1 Tablet(s), Oral, once a day x 30 day(s) New rizatriptan (Maxalt-COLLAR STITCHER 10 mg oral tablet, disintegrating) 1 Tablet(s), Oral, as directed as needed for Migraine headache Take 1 tablet at onset of headache. Repeat after two hours if needed. New Routed to [address] [address] Stop Taking the Following Medications: SUMAtriptan (Imitrex [...] Appointments Date Time Location Provider 11/05/2016 12:45 [facility] ENT Jimmie CERON, Venu Gomez Attention: Contact [...] if you dont have one. Go to [email or web address] and click on Create Your Account. Then, follow the directions to complete the online form. Youll be asked for your [facility] number which you can find at the top of this document. Your Goals/Additional instructions: Source: [facility] POWERCHART Document Id: [id number] TRIMMER UPHOLSTERER Miscellaneous - Rylee Hooker APRN C.N.P., D.N.P. - 10/29/2016 10:07 AM BODY TRIMMER UPHOLSTERER Ambulatory Discharge Medication List [address] [place] [id number] Visit Information Name: PUNEET CLAYTON [facility] Number: [id number] Current Date: 10/29/2016 10:07:19 Attending [...] nasal (Flonase 50 mcg/inh nasal spray) 2 [place](s), Nostrils(Both), once a day allergies New Routed to [address] [address] furosemide (furosemide 20 mg oral tablet) 1 Tablet(s), Oral, once a day swelling New Routed to [address] [id number] ibuprofen (ibuprofen 400 mg oral tablet) 1 Tablet(s), Oral, every 4 hours as needed for Pain / FeverTake with food loratadine (Claritin 10 mg oral tablet) 1 Tablet(s), Oral, once a day x 30 day(s) New rizatriptan (Maxalt-COLLAR STITCHER 10 mg oral tablet, disintegrating) 1 Tablet(s), Oral, as directed as needed for Migraine headache Take 1 tablet at onset of headache. Repeat after two hours if needed. New Routed to [address] [id number] Stop Taking the Following Medications: SUMAtriptan (Imitrex [...] D.N.P Signed On:29-OCT-2016 10:07:14 Additional Information: Source: [facility] [employer] Document Id: [id number] TRIMMER UPHOLSTERER Leilani - Craig Tolentino L.P.N. - 10/29/2016 9:32 AM CST Ambulatory Vitals Height Weight Ambulatory Vitals Height Weight Entered On: 10/29/2016 9:33 BODY TRIMMER UPHOLSTERER Performed On: 10/29/2016 9:32 BODY TRIMMER UPHOLSTERER by CRAIG TOLENTINO LPN Vitals/Ht/Wt Peripheral Pulse Rate : 104 /min (HI) Systolic Blood Pressure : 144 mmHg (HI) Diastolic Blood Pressure : 90 mmHg (HI) NIBP Mean : 108 mmHg BP Location : Left upper extremity Blood Pressure Cuff Size : Large Height : 157 cm(Converted to: 5 ft 2 inch(es), 62 inch(es)) CRAIG TOLENTINO LPN - 10/29/2016 9:32 BODY TRIMMER UPHOLSTERER Source: [facility] [employer] Document Id: [id number] BODY TRIMMER UPHOLSTERER!9 TRIMMER UPHOLSTERER Leilani - Craig Tolentino L.P.N. - 10/29/2016 9:28 AM CST Adult Woods Manager Intake/History Adult Woods Manager Intake/History Entered On: 10/29/2016 9:31 BODY TRIMMER UPHOLSTERER Performed On: 10/29/2016 9:28 BODY TRIMMER UPHOLSTERER by CRAIG TOLENTINO LPN Intake Chief Complaint [...] 60.61 kg/m2 CRAIG TOLENTINO LPN 10/29/2016 9:28 BODY TRIMMER UPHOLSTERER General Info Information Given By : Patient Preferred Communication Mode : Verbal Languages : Kenyan Is Patient Female and 13-50 no hysterectomy : Yes Status : Possible unconfirmed Are you ? : No CRAIG TOLENTINO LPN 10/29/2016 9:28 BODY TRIMMER UPHOLSTERER Subjective Pain Symptoms : Yes CRAIG TOLENTINO LPN 10/29/2016 9:28 BODY TRIMMER UPHOLSTERER Pain Scale Pain Scale Verbal 0-10 : Open CRAIG TOLENTINO LPN 10/29/2016 9:28 BODY TRIMMER UPHOLSTERER Pain Pain Assessment Grid Pain 1 Location : Head Intensity : 5 CRAIG TOLENTINO LPN 10/29/2016 9:28 BODY TRIMMER UPHOLSTERER Dependent Habits Exposure to Tobacco Smoke : Patient smokes Smoking Status : Current every day smoker Tobacco 2A : Yes Tobacco Use/Currently Using : Yes Tobacco Use/Last 30 Days : Yes Tobacco Use/Last 12 months : Yes Type : Cigarettes: Less than 20 per day Tobacco Use/Advised to Quit : Yes Alcohol Use : No CRAIG TOLENTINO LPN 10/29/2016 9:28 BODY TRIMMER UPHOLSTERER Caffeine Use Grid Caffeine Use : Current Type : Coffee, Soft drinks Frequency : Occasionally CRAIG TOLENTINO LPN - 10/29/2016 9:28 BODY TRIMMER UPHOLSTERER Recreational Drug Use Grid Drug Use : None CRAIG TOLENTINO LPN 10/29/2016 9:28 BODY TRIMMER UPHOLSTERER [facility] POWER[facility] Document Id: [id number] BODY TRIMMER UPHOLSTERER!55 TRIMMER UPHOLSTERER documented in this encounter Plan of Treatment Scheduled Procedures Name Priority Associated Diagnoses Date/Time COLONOSCOPY Diarrhea documented as of this encounter Procedures Procedure Name Priority Date/Time Associated Diagnosis Comme nts BASIC METABOLIC Routine 10/29/2016 10:16 AM Resul ts for this PANEL, S/P BODY TRIMMER UPHOLSTERER procedure are i n the results section. TEST, U Routine 10/29/2016 10:00 AM Res ults for this BODY TRIMMER UPHOLSTERER procedure are i n the results section. documented in this encounter Results BMP (Basic Metabolic Panel) (10/29/2016 10:16 AM BODY TRIMMER UPHOLSTERER) P athologist Signature Sodium, S 140 135 [...] POWERCHART MMOLL HXeGFR (MDRD) >60 >=60 POWERCHART [id number] eGFR >60 >=60 POWERCHART Black/ [id number] Turkmen Glucose 125 70 - 139 POWERCHART MGDL Specimen (Source) Anatomical Collection Method Collection Time Re ceived Time Location / / Volume Laterality Blood 10/29/2016 10:16 AM BODY TRIMMER UPHOLSTERER Rylee Hooker APRN C.N.P., D.N.P. LAB BLOOD ADD-ON Performing Organization Address City/State/ZIP Code Phon e Number POWERCHART Test, Qualitative, Urine (10/29/2016 10:00 AM BODY TRIMMER UPHOLSTERER) Patholo gist Method Time Signature HXBeta-hCG Positive POWERCHART Qualitative Urine Specimen (Source) Anatomical Collection Method Collection Time Re ceived Time Location / / Volume Laterality Urine 10/29/2016 10:00 AM BODY TRIMMER UPHOLSTERER Rylee Hooker APRN, C.N.P., D.N.P. LAB URINE ORDERAB LES Performing Organization Address City/State/ZIP Code Phon e Number POWERCHART documented in this encounter Visit Diagnoses Not on filedocumented in this encounter Additional Health Concerns Assessment Noted Time PHQ-9 Depression Total Score: 11 12/13/2014 9:50 AM CD T documented as of this encounter
--- OUTSIDE RECORDS SUMMARY | 2022-07-03 10:41 | XMS_ITS | Encounter Summary ---
:1985 Author Organization [facility] Address [address] [place] [address] Care Team Providers Name Role Phone Unavailable Primary Care Provider Unavailable Encounter Details Date Type Department Care Team Description 02/07/2016 [facility] Kyle Colmenares M .D., M.P.H. [address] [place], [place] [phone] (Wo rk) Social History [...] How often do you attend yarsani or restorationist More than 4 time s [...] Only Visit Documentation : MRO review for [facility]. DEV CASPER LPN - 02/07/2016 11:27 CDT Source: [facility] POWERCHART Document Id: [id number] CDT!3 documented in this encounter Plan of Treatment Scheduled Procedures Name Priority Associated Diagnoses Date/Time COLONOSCOPY Diarrhea documented as of this encounter Visit Diagnoses Not on filedocumented in this encounter Additional Health Concerns Assessment Noted Time PHQ-9 Depression Total Score: 11 12/13/2014 9:50 AM CD T documented as of this encounter
--- OUTSIDE RECORDS SUMMARY | 2022-07-03 10:41 | XMS_ITS | Encounter Summary ---
:1985 Author Organization [facility] Address [address] [place] [address] Care Team Providers Name Role Phone Unavailable Primary Care Provider Unavailable Encounter Details Date Type Department Care Team Description 03/05/2015 Hospital Encounter [facility] ED Joslyn Snyder M.D. [address] [place], [place] [phone] (Wo rk) Social History [...] often do you attend roman catholic or buddhist More than 4 time s [...] 03/05/2015 10:42 AM CDT ED Depart Summary [facility] Emergency Department Clinical Discharge Summary PERSON INFORMATION Name PUNEET FRIED Age 29 Years 1985 12:00 AM Sex Female Language Filipino PCP ALISON MONACO PA-C Marital Status Single Visit Id Visit Reason Throat pain - Adult; Extreme Throat Pain Specialty Enc Type Emergency Med Service Emergency Medicine Referred by Track Group [facility] ED Discharge 03/05/2015 10:30 AM Tracking Id [id number] Checkout 03/05/2015 10:30 AM Checkin 03/05/2015 6:02 AM Acuity 3 -Urgent Dispo Type * Discharged to Home or Self Care Arrival 03/05/2015 6:02 AM Reg Status Complete LOS 000 04:28 Address: [address] [place] [phone] Comment: PROVIDER INFORMATION Provider Role Provider Contact Time JOSLYN SNYDER MD ED Provider 03/05/15 06:20 MAURICE HAYS HOUSECLEANER Nurse 03/05/15 06:20 JOSLYN SNYDER MD ED Provider 03/05/15 06:25 DAWNA HART HOUSECLEANER Nurse 03/05/15 07:32 DIAGNOSIS Abscess Peritonsillar Comment: PATIENT EDUCATION INFORMATION Instructions: PERITONSILLAR ABSCESS Follow up: Source: [facility] POWERCHART Document Id: [id number] Dawna Hart R.N. - 03/05/2015 10:42 AM CDT ED Discharge Instructions [address] [place] [address] Name: PUNEET FRIED Date of : 1985 12:00 AM Visit Date: 03/05/2015 6:02 AM [facility] Number: [id number] Address: [address] [place] [phone] Primary Care Provider: ALISON MONACO PA-C IMPORTANT: [facility] in [place] would like to thank you for allowing [...] -- Trouble breathing or noisy breathing ?? [id number] [place] [address]. All rights reserved. This information is not [...] if you dont have one. Go to [email or web address] and click on Create Your Account. Then, follow the directions to complete the online form. Youll be asked for your [facility] number which you can find at [...] arrange a ride home with a responsible alliance party. FARIHA Cornejo AMANDA KAY , or responsible alliance party have received this information and my [...] arrange a ride home with a responsible alliance party. FARIHA Cornejo AMANDA KAY , or responsible alliance party have received this information and my questions have been answered. I have discussed any challenges I see with this plan with the nurse or physician. Patient Signature or Responsible Democrat/Relationship Date Time Provider Signature Date Time Source: [employer] Document Id: [id number] documented in this encounter ED Notes Dawna [...] HART RN - 03/05/2015 10:41 CDT Source: [employer] Document Id: [id number] CDT!8 Dawna Hart R.N. - 03/05/2015 9:56 [...] HART RN - 03/05/2015 9:56 CDT Source: [employer] Document Id: [id number] CDT!10 Dawna Hart R.N. - 03/05/2015 8:59 [...] HART RN - 03/05/2015 8:59 CDT Source: [employer] Document Id: [id number] CDT!10 Dawna Hart R.N. - 03/05/2015 7:30 [...] intima Site Condition : No complications DAWNA HART RN - 03/05/2015 7:30 CDT Source: [employer] Document Id: [id number] CDT!12 Dawna Hart R.N. - 03/05/2015 7:27 [...] HART RN - 03/05/2015 7:27 CDT Source: [facility] GMG33 Document Id: [id number] CDT!10 Joslyn Snyder M.D. - 03/05/2015 6:26 [...] She was seen in emergency room in [place] where she was diagnosed with strep throat [...] Stat, Patient Bed, Once, 03/05/2015 6:27 CDT, [facility] ED, Launch Orders Pharmacy: [email or web address] (Order Processing): [...] The patient was told to go to [place] [facility] for further management and [...] SNYDER MD On: 03/05/2015 10:19 AM Source: [facility] POWERCHART Document Id: [id number]} Maurice Hays RBrittaneyN. - 03/05/2015 6:14 AM [...] Medical ; Code: 305.1 ; Contributor System: [employer] ; Last Updated: 12/12/2014 9:21 CDT ; Life Cycle Date: 12/12/2014 ; Life Cycle Status: Active ; Responsible Provider: MAURICE ADDISON; Vocabulary: ICD-9-CM Dysthymic Disorder (ICD-9-CM :300.4 ) Name of Problem: Dysthymic Disorder ; Onset Date: 08/01/2010 ;Confirmation: Confirmed ; Classification: Medical ; Code: 300.4 ; Contributor System: [employer] ; Last Updated: 12/12/2014 9:11 CDT ; Life Cycle Status: Active ; Vocabulary: ICD-9-CM ; Comments: - Dysthymic disorder Headache (ICD-9-CM :784.0 ) Name of Problem: Headache ; Onset Date: 10/24/2007 ; Confirmation: Confirmed ; Classification: Medical ; Code: 784.0 ; Contributor System: [employer] ; Last Updated: 12/12/2014 9:11 CDT ; [...] PNED ; Probability: 0 ; Diagnosis Code: [id number] Triage Chief Complaint Description : see triage Mode of Arrival ED : Private vehicle, Ambulatory Track : Medical Languages : Filipino Treatments Prior to Arrival : Acetaminophen, Ibuprofen [...] HAYS RN - 03/05/2015 6:14 CDT Source: [facility] PlacesterCHART Document Id: [id number] CDT!48 Maurice Hays RMarcos. - 03/05/2015 6:09 [...] Medical ; Code: 346.90 ; Contributor System: [employer]igoChart ; Last Updated: 12/12/2014 9:11 CDT ; [...] PNED ; Probability: 0 ; Diagnosis Code: [id number] Triage Chief Complaint Description : Pt presents with sore throat. Diagnosed February 27 with strep was seen in ER March 02 again and changed antibiotics. Pain continues, hard to swallow and swollen. Tonsils hugemore on left then right side. Information Given By : Patient Accompanied By : Alone Mode of Arrival ED : Private vehicle, Ambulatory Track : Medical Languages : Filipino Vital Signs Assessed : Yes Treatments Prior [...] Acuity : 3 -Urgent Tracking Group : [facility] ED MAURICE HAYS RN - 03/05/2015 6:09 CDT Allergy (As Of: 03/05/2015 06:14:25 CDT) Allergies (Active) penicillins Estimated Onset Date: Unspecified ; Created By: GLEN ACOSTA; Reaction Status: Active ;Category: Drug ; Substance: penicillins ; Type: Allergy ; Updated By: GLEN ACOSTA; Reviewed Date: 03/05/2015 6:14 CDT Immunizations Immunizations Current : Yes MAURICE HAYS RN - 03/05/2015 6:09 CDT Source: [employer] Document Id: [id number] CDT!48 documented in this encounter Miscellaneous Notes Miscellaneous - Dawan Hart R.N. - 03/05/2015 10:41 AM CDT Valuables/Belongings Valuables/Belongings Entered On: 03/05/2015 10:41 CDT Performed On: 03/05/2015 10:41 CDT by DAWNA HART RN Valuables/Belongings Belongings Sent Home With : patient DAWNA HART RN - 03/05/2015 10:41 CDT Source: [employer] Document Id: [id number] CDT!3 Miscellaneous - Conversion, Historical Provider Ser - 03/05/2015 10:30 AM CDT Coding Summary-Paper Based CODING DATE: 03/18/2015 FINAL [facility] STATUS: * Discharged to Home or [...] PATRICK Date Saved: 03/18/2015 11:39 am Source: [facility] POWERCHART Document Id: [id number] Miscellaneous - Dawna Hart RRoverto - 03/05/2015 [...] RTF : Triage Forms ED Triage Assessment,03/05/15 06:09,MAURCIE HASY RN Nursing Notes ED Primary Assessment,03/05/15 06:14,MAURICE HAYS RN ED Nurse Reassess,03/05/15 08:59,DAWNA HART RN ED Pain Assessment,03/05/15 09:56,DAWNA HART RN ED Pain Assessment,03/05/15 07:27,DAWNA HART RN Lynx Nursing Assessment : Triage and 1-2 nursing assessments Lynx Disposition : Discharge Disposition RTF : discharge Lynx Total Points with Diagnosis Control : 7 Lynx Visit Level : 49196 Level 3 Treatments Prior to Arrival : Acetaminophen, Ibuprofen DAWNA HART RN - 03/05/2015 10:41 CDT Source: [facility] POWERCHART Document Id: [id number] CDT!19 documented in this encounter Plan of [...] Mononucleosis Screen, POCT (03/05/2015 6:54 AM CDT) [facility] E-House Method Time Signature Infectious POWERCHART [place] Test, S HXFinal Negative POWERCHART HXFinal Reference: POWERCHART Negative Specimen (Source) Anatomical Collection Method Collection Time Re ceived Time Location / / Volume Laterality Blood 03/05/2015 6:54 AM CDT Joslyn Snyder M.D. LAB POCT ORDERABLES-MANUAL Performing Organization Address City/State/ZIP Code Phon e Number POWERCHART Test, Qualitative, Urine (03/05/2015 6:30 AM CDT) [facility] E-House Method Time Signature HXBeta-hCG Negative POWERCHART Qualitative Urine Specimen (Source) Anatomical Collection Method Collection Time Re ceived Time Location / / Volume Laterality Urine 03/05/2015 6:30 AM CDT Joslyn Snyder M.D. LAB URINE ORDERABLES Performing Organization Address City/[facility]/ZIP Code Phon e Number POWERCHART documented in this encounter Visit Diagnoses Not on filedocumented in this encounter Additional Health Concerns Assessment Noted Time PHQ-9 Depression Total Score: 11 12/13/2014 9:50 AM CD T documented as of this encounter
--- OUTSIDE RECORDS SUMMARY | 2022-07-03 10:42 | XMS_ITS | Encounter Summary ---
:1985 Author Organization [facility] Address [address] [place] [address] Care Team Providers Name Role Phone Unavailable Primary Care Provider Unavailable Encounter Details Date Type Department Care Team Description 01/21/2012 Hospital Encounter [facility] [address] [place] [phone] (Wo rk) Social History Tobacco Use [...] How often do you attend hindu or temple More than 4 time s [...] Farias M.D. - 01/21/2012 12:00 AM CDT [id number] CHIEF COMPLAINT/REASON FOR VISIT Headache. HISTORY OF [...] has symmetric and coordinated finger tapping and msfn-il-xlec rubbing. Strength is 5 out of 5 [...] NATHAN MD On: 01/26/2012 07:59 AM Source: [facility] MHSDOLBEYNONRADSYS Document Id: [id number] documented in this encounter Miscellaneous Notes Miscellaneous - Leonora Farias M.D. - 01/21/2012 9:53 AM CDT Ambulatory Depart Summary [address] [address] Visit Information Name: PUNEET FRIED Visit Date: [...] your provider for clarification. Additional Information: Source: [facility] POWERCHART Document Id: [id number] Miscellaneous - Leonora Farias M.D. - 01/21/2012 9:53 AM CDT Ambulatory Patient Summary [address] [place] [address] Visit Information Name: PUNEET FRIED Current Date: [...] No Appointments found Your Goals/Additional instructions: Source: [facility] POWERCHART Document Id: [id number] Miscellaneous - Bessy Herrera, LBrittaneyP.N. - 01/21/2012 9:21 AM CDT Adult Rf Test Technician Intake/History Adult Rf Test Technician Intake/History Entered On: 01/21/2012 9:28 CDT Performed [...] Preferred Communication Mode : Verbal Languages : Burmese BESSY HERRERA LPN, 01/21/2012 9:21 CDT Subjective [...] ACOSTA; Reviewed Date: 01/12/2012 18:06 CDT Source: [employer] Document Id: [id number] documented in this encounter Plan of Treatment Scheduled Procedures Name Priority Associated Diagnoses Date/Time COLONOSCOPY Diarrhea documented as of this encounter Visit Diagnoses Not on filedocumented in this encounter
--- OUTSIDE RECORDS SUMMARY | 2022-07-03 10:42 | XMS_ITS | Encounter Summary ---
:1985 Author Organization [facility] Address [address] [place] [address] Care Team Providers Name Role Phone Unavailable [...] How often do you attend restoration or taoist More than 4 time s [...]
--- OUTSIDE RECORDS SUMMARY | 2022-07-03 10:42 | XMS_ITS | Encounter Summary ---
:1985 Author Organization [facility] Address [address] [place] [address] Care Team Providers Name Role Phone Unavailable [...] How often do you attend yazidism or caodaism More than 4 time s [...]
--- OUTSIDE RECORDS SUMMARY | 2022-07-03 10:42 | XMS_ITS | Encounter Summary ---
:1985 Author Organization [facility] Address [address] [place] [address] Care Team Providers Name Role Phone Unavailable Primary Care Provider Unavailable Encounter Details Date Type Department Care Team Description [facility]/12[facility] Gildardo Marvin M.D. [address] [place] [phone] (Wo rk) Social History Tobacco Use [...] How often do you attend mormon or lutheran More than 4 time s [...] Marvin M.D. - 01/12/2012 12:00 AM CDT [id number] IMPRESSION/REPORT/PLAN 1. Eustachian tube dysfunction. 2. Headache. [...] MARVIN MD On: 01/15/2012 10:03 AM Source: [facility] MHSDOLBEYNONRADNYU [facility] Document Id: [id number] documented in this encounter Miscellaneous Notes Miscellaneous - Vinicio Marvin M.D. - 01/12/2012 6:46 PM CDT Ambulatory Depart Summary [address] [address] Visit Information Name: PUNEET FRIED Visit Date: [...] your provider for clarification. Additional Information: Source: [facility] POWERCHART Document Id: [id number] Miscellaneous - Vinicio Marvin M.D. - 01/12/2012 6:46 PM CDT Ambulatory Patient Summary [address] [address] Visit Information Name: PUNEET FRIED Current Date: [...] No Appointments found Your Goals/Additional instructions: Source: [facility] POWERCHART Document Id: [id number] Miscellaneous - Josephine Acosta L.PBrittaneyN. - 01/12/2012 [...] KARLA JOSEPHINE - 01/12/2012 18:07 CDT [facility] Document Id: [id number] CDT!24 Miscellaneous - Josephine Acosta L.P.N. - 01/12/2012 6:01 PM CDT Adult Material Flow Analyst Intake/History Adult Material Flow Analyst Intake/History Entered On: 01/12/2012 18:06 CDT Performed [...] ACOSTA - 01/12/2012 18:01 CDT Allergy [facility] Document Id: [id number] CDT!33 documented in this encounter Plan of Treatment Scheduled Procedures Name Priority Associated Diagnoses Date/Time COLONOSCOPY Diarrhea documented as of this encounter Visit Diagnoses Not on filedocumented in this encounter
--- OUTSIDE RECORDS SUMMARY | 2022-07-03 10:42 | XMS_ITS | Encounter Summary ---
:1985 Author Organization [facility] Address [address] [place] [address] Care Team Providers Name Role Phone Unavailable Primary Care Provider Unavailable Encounter Details Date Type Department Care Team Description 07/31/2014 Hospital Encounter [facility]X [facility] Pavel BELTRAN Obi, M.D. [address] [place] [address] (Wo rk) Social History Tobacco [...] How often do you attend adventist or shinto More than 4 time s [...] Comments Blood Pressure 154/92 07/31/2014 10:14 AM PRODUCTION EDITOR Pulse - - Temperature - - Respiratory Rate - - Oxygen Saturation - - Inhaled Oxygen Concentration - - Weight 143 kg (315 lb 11.2 oz) 07/31/2014 10:14 AM PRODUCTION EDITOR Height 158 cm (5' 2.21) 07/31/2014 10:14 AM PRODUCTION EDITOR Body Mass Index 57.36 07/31/2014 10:14 AM PRODUCTION EDITOR documented in this encounter Procedure Notes Berny [...] CHAU MD On: 07/31/2014 10:33 AM Source: [facility] POWERCHART Document Id: [id number] UCTION EDITOR documented in this encounter Miscellaneous Notes Miscellaneous - Alison Monsivais L.P.N. - 07/31/2014 10:14 AM CST Adult Educational Advisor Intake/History Adult Educational Advisor Intake/History Entered On: 07/31/2014 10:16 PRODUCTION EDITOR Performed On: 07/31/2014 10:14 PRODUCTION EDITOR by ALISON MONSIVAIS LPN Intake Chief Complaint [...] 2.51 Body Mass Index : 57.36 kg/m2 ALIOSN MONSIVAIS LPN - 07/31/2014 10:14 PRODUCTION EDITOR General Info Information Given By : Patient Languages : Khmer Is Patient Female and 13-50 no hysterectomy : Yes Status : Patient denies Are you ? : No ALISON MONSIVAIS LPN - 07/31/2014 10:14 PRODUCTION EDITOR Subjective Pain Symptoms : No ALISON MONSIVAIS LPN - 07/31/2014 10:14 PRODUCTION EDITOR Dependent Habits Tobacco Use/Currently Using : Yes Tobacco Use/Advised to Quit : Yes Exposure to Tobacco Smoke : Patient smokes Smoking Status : Current some day smoker ALISON MONSIVAIS LPN - 07/31/2014 10:14 PRODUCTION EDITOR Tobacco Use Grid Type : Cigarettes Cigarette Use Packs/Day : 0.5 Last Use : 04/30/2014 ALISON MONSIVAIS LPN - 07/31/2014 10:14 PRODUCTION EDITOR Caffeine Use Grid Caffeine Use : Current Type : Coffee, Soft drinks Frequency : Daily ALISON MONSIVAIS LPN - 07/31/2014 10:14 PRODUCTION EDITOR Recreational Drug Use Grid Drug Use : None ALISON MONSIVAIS LPN - 07/31/2014 10:14 PRODUCTION EDITOR ID Screen Travel Within Last 21 Days : No ALISON MONSIVAIS LPN - 07/31/2014 10:14 PRODUCTION EDITOR Source: [facility] POWERCHART Document Id: [id number] PRODUCTION EDITOR!40 UCTION EDITOR documented in this encounter Plan of Treatment Scheduled Procedures Name Priority Associated Diagnoses Date/Time COLONOSCOPY Diarrhea documented as of this encounter Visit Diagnoses Not on filedocumented in this encounter Additional Health Concerns Assessment Noted Time PHQ-9 Depression Total Score: 18 05/02/2014 9:45 AM CD T documented as of this encounter
--- OUTSIDE RECORDS SUMMARY | 2022-07-03 10:42 | XMS_ITS | Encounter Summary ---
:1985 Author Organization [facility] Address [address] [place] [address] Care Team Providers Name Role Phone Unavailable Primary Care Provider Unavailable Encounter Details Date Type Department Care Team Description 11/03/2012 - Hospital Encounter [facility] ED Stephen Toth M.D. 11/04/2012 Social History [...] How often do you attend holiness or church More than 4 time s [...] 11/14/2012 2:53 PM CDT ED Discharge Instructions [address] [address] Name: PUNEET FRIED Date of : 1985 12:00 AM Visit Date: 11/03/2012 8:13 PM [facility] Number: [id number] Address: [address] [place] [phone] Primary Care Provider: RABIA NATHAN MD IMPORTANT: [facility] in [place] would like to thank you for allowing [...] with fevers. With: Address: When: RABIA NATHAN [address] [place] [phone] Business (1) Within As Needed Comments: Patient Education Materials: [id number] NECK SPASM [No trauma] Spasm of the [...] or vomiting Fever over 100.4??F (38.0??C) ?? [phone] [employer], [address] [place] [address]. All rights reserved. This information is not [...] document has images extracted. Please consider using [employer] for all your patient education needs. Source: [facility] POWERCHART Document Id: [id number] Jeaneth Rodríguez R.N. - 11/14/2012 2:53 PM CDT ED Depart Summary [facility] Emergency Department Clinical Discharge Summary PERSON INFORMATION Name PUNEET FRIED Age 26 Years 1985 12:00 AM Sex Female Language Equatorial Guinean PCP RABIA NATHAN MD Marital Status Single N [id number] [id number] Reason ; Head pain; PAIN, BACK, RT SIDE OF HEAD Specialty Enc Type Emergency Med Service Emergency Medicine Referred by Track Group [facility] ED Discharge 11/04/2012 4:26 PM Tracking Id [id number] Checkout 11/04/2012 3:14 PM Checkin 11/03/2012 8:13 PM Acuity Dispo Type * Discharged to Home or Self Care Arrival 11/03/2012 8:13 PM Reg Status LOS 000 19:01 Address: [address] [place] [phone] Comment: PROVIDER INFORMATION Provider Role Provider Contact Time RUIZ KING MD ED Provider 11/04/12 15:11 RUIZ KING MD ED Provider 11/04/12 15:11 DIAGNOSIS Comment: PATIENT EDUCATION INFORMATION Instructions: NECK SPASM, No Trauma Follow up: With: Address: When: Return to Emergency Department Within As Needed Comments: Return to ER if you develop severe worsening, generalized headache with fevers. With: Address: When: RABIA VENITA [address] [place] [phone] Business (1) Within As Needed Comments: Source: [facility] [employer] Document Id: [id number] documented in this encounter Nursing Notes Rylee [...] Medical ; Code: 1231 ; Contributor System: [employer] ; Last Updated: 01/21/2012 9:41 CDT ; Life Cycle Date: 01/12/2012 ; Life Cycle Status: Active ; Responsible Provider: GLEN ACOSTA; Vocabulary: ICD-9-CM Diagnoses(Active) Head pain Date: 11/03/2012 ; Diagnosis Type: Reason For Visit ; Confirmation: Complaint of ; Clinical Dx: Head pain ; Classification: Medical ; Clinical Service: Emergency medicine ; Code: PNED ; Probability: 0 ; Diagnosis Code: [id number] Triage Chief Complaint Description : see notes Information Given By : Patient Accompanied By : Friend Mode of Arrival ED : Private vehicle Track : Medical Languages : Equatorial Guinean RYLEE ROMERO RN - 11/03/2012 20:47 CDT [...] ROMERO RN - 11/03/2012 20:47 CDT Source: [facility] [employer] Document Id: [id number] documented in this encounter ED Notes Stephen Toth M.D. - 11/03/2012 9:08 PM CDT Head pain Patient: PUNEET FRIED Age: 26 years Sex: Female : 1985 Author: TSEPHEN TOTH MD Attachments: None Basic Information Additional [...] selected or recorded. Surgical history: . None ([id number]). Family history: . No family history items [...] % 58.8 % Lymph % 31.9 % Flagler % 6.9 % Eos % 2.2 % Baso % 0.2 % Neutro Absolute 5.73 10(9)/L Lymph Absolute 3.10 x10(9)/L HI Flagler Absolute 0.67 x10(9)/L Eos Absolute 0.21 x10(9)/L [...] TOTH MD On: 11/03/2012 09:21 PM Source: [facility] [employer] Document Id: [id number]} Rylee Romero R.N. - 11/03/2012 8:44 PM [...] Medical ; Code: 1231 ; Contributor System: [employer] ; Last Updated: 01/21/2012 9:41 CDT ; Life Cycle Date: 01/12/2012 ; Life Cycle Status: Active ; Responsible Provider: GLEN ACOSTA; Vocabulary: ICD-9-CM Diagnoses(Active) Head pain Date: 11/03/2012 ; Diagnosis Type: Reason For Visit ; Confirmation: Complaint of ; Clinical Dx: Head pain ; Classification: Medical ; Clinical Service: Emergency medicine ; Code: PNED ; Probability: 0 ; Diagnosis Code: [id number] Triage Chief Complaint Description : 26 year old female admits with compalints of right sided ocipital painx24 hrs. Pt states she has been exposed to menigitis on Wednesday Information Given By : Patient Mode of Arrival ED : Private vehicle Track : Medical Languages : Equatorial Guinean RYLEE ROMERO RN - 11/03/2012 20:44 CDT [...] ROMERO RN - 11/03/2012 20:44 CDT Source: [employer] Document Id: [id number] documented in this encounter Miscellaneous Notes Miscellaneous [...] Control : 8 Lynx Visit Level : 87186 Level 4 [place] - 11/08/2012 13:29 CDT Source: [employer] Document Id: [id number] documented in this encounter Plan of Treatment [...] % 31.9 23.0 - POWERCHART 44.0 HX Flagler % 6.9 2.0 - 18.0 POWERCHART HX [...] M.D. LAB HISTORICAL ORDERS Performing Organization Address [facility] Code Phon e Number POWERCHART CRP (C-Reactive Protein) (11/03/2012 9:10 PM CDT) P athologist Signature C-Reactive 0.4 0.0 - 0.8 POWERCHART Protein (CRP), MGDL S Specimen (Source) Anatomical Collection Method Collection Time Re ceived Time Location / / Volume Laterality Blood 11/03/2012 9:10 PM CDT Stephen Toth M.D. LAB BLOOD ADD-ON Performing Organization Address [facility] Code Phon e Number POWERCHART documented in this encounter Visit Diagnoses Not on filedocumented in this encounter
--- OUTSIDE RECORDS SUMMARY | 2022-07-03 10:42 | XMS_ITS | Encounter Summary ---
:1985 Author Organization [facility] Address [address] [place] [address] Care Team Providers Name Role Phone Unavailable [...] How often do you attend orthodox or episcopal More than 4 time s [...]
--- OUTSIDE RECORDS SUMMARY | 2022-07-03 10:42 | XMS_ITS | Encounter Summary ---
:1985 Author Organization [facility] Address [address] [place] [address] Care Team Providers Name Role Phone Unavailable [...]
--- OUTSIDE RECORDS SUMMARY | 2022-07-03 10:42 | XMS_ITS | Encounter Summary ---
:1985 Author Organization [facility] Address [address] [place] [address] Care Team Providers Name Role Phone Unavailable Primary Care Provider Unavailable Encounter Details Date Type Department Care Team Description 04/05/2012 Hospital Encounter HX [facility] [place] Gildardo Marvin M.D. [address] [place] [phone] (Wo rk) Social History Tobacco Use [...] How often do you attend voodoo or faith More than 4 time s [...] Marvin M.D. - 04/05/2012 7:55 AM CDT [id number] IMPRESSION/REPORT/PLAN 1) Bronchitis with bacterial sinusitis with [...] MARVIN MD On: 04/06/2012 11:36 AM Source: [facility] MHSDOLBEYNONRADSYS Document Id: [id number] documented in this encounter Miscellaneous Notes Miscellaneous - Dung Noonan R.N. - 04/30/2014 3:53 PM CDT bee sting, ER From: DUNG NOONAN RN Sent: 04/30/2014 15:53:29 CDT Subject: bee sting, ER Pt has no PCP here, calls with bee sting on wrist yesterday getting worse, hand warm and red, swollen from fingers up wrist, breathing fine she reports. ER advised and notified. Source: [facility] POWERCHART Document Id: [id number] Miscellaneous - Vinicio Marvin M.D. - 04/05/2012 9:05 AM CDT Ambulatory Patient Summary [place] [id number] Visit Information Name: PUNEET FRIED Current Date: [...] No Appointments found Your Goals/Additional instructions: Source: [facility] POWERCHART Document Id: [id number] Leilani - Vinicio Marvin M.D. - 04/05/2012 9:05 AM CDT Ambulatory Depart Summary [address] [address] Visit Information Name: PUNEET FRIED Visit Date: [...] your provider for clarification. Additional Information: Source: [facility] POWERCHART Document Id: [id number] Leilani - Roosevelt Rodriges L.P.N. - 04/05/2012 8:07 AM CDT Adult Platinum And Palladium Kettle Tender Intake/History Adult Platinum And Palladium Kettle Tender Intake/History Entered On: 04/05/2012 8:11 CDT Performed [...] 8:07 CDT Subjective Pain Symptoms : Yes ROOSEVELT RODRIGES LPN - 04/05/2012 8:07 CDT Pain [...] ACOSTA; Reviewed Date: 03/24/2012 11:30 CDT [facility] Document Id: [id number] documented in this encounter Plan of Treatment Scheduled Procedures Name Priority Associated Diagnoses Date/Time COLONOSCOPY Diarrhea documented as of this encounter Visit Diagnoses Not on filedocumented in this encounter
--- OUTSIDE RECORDS SUMMARY | 2022-07-03 10:42 | XMS_ITS | Encounter Summary ---
:1985 Author Organization [facility] Address [address] [place] [address] Care Team Providers Name Role Phone Unavailable Primary Care Provider Unavailable Encounter Details Date Type Department Care Team Description 04/30/2014 Hospital Encounter HX [facility] ED Remi Marvin M.D. [address] [phone] (Wo rk) Social History Tobacco [...] How often do you attend congregational or sabianist More than 4 time s [...] 04/30/2014 7:01 PM CDT ED Discharge Instructions [address] [address] Name: PUNEET FRIED Date of : 1985 12:00 AM Visit Date: 04/30/2014 4:05 PM [facility] Number: [id number] Address: [address] [place] [phone] Primary Care Provider: MICHELLE BEAR MD IMPORTANT: [facility] in [place] would like to thank you for allowing us to assist you with your healthcare needs. The following includes patient education materials and informationregarding your injury/illness. Diagnosis: Allergy Bee Sting Active; Hives; Reaction Allergic Active Follow-Up Instructions: With: Address: When: MICHELLE BEAR [address] [place] [phone] [facility] (1) Within As Needed Comments: For recheck If symptoms worsen Your Upcoming Appointments: Date Time Location Provider No Appointments found Patient Education Materials: [id number] ALLERGIC REACTION, OTHER [local] You are having [...] Colored fluid draining from the wound ?? 7027-6212 [place] [address]. All rights reserved. This information is not intended as a substitute for professional medical care. Always follow your healthcare professional's instructions. [id number] MEDICATION: ZYRTEC Zyrtec (generic name is cetirizine) [...] any questions that you may have.] ?? 0419-8052 [place] [address]. All rights reserved. This information is not intended as a substitute for professional medical care. Always follow your healthcare professional's instructions. [id number] INSECT BITE Insects most often bite to [...] HOME CARE Medications: The doctor may prescribe bpjg-ekb-uekmdde (OTC) medications to help relieve itching andswelling. [...] you have trouble breathing, call 911) ?? [phone] [facility], [address] [place] [address]. All rights reserved. This information is not [...] document has images extracted. Please consider using [employer] for all your patient education needs. Source: [facility] POWERCHART Document Id: [id number] Bambi Addison R.N. - 04/30/2014 7:01 PM CDT ED Depart Summary [facility] Emergency Department Clinical Discharge Summary PERSON INFORMATION Name PUNEET FRIED Age 28 Years 1985 12:00 AM Sex Female Language Lebanese PCP MICHELLE BEAR MD Marital Status Single Visit Id Visit Reason Hand pain-swelling; Bee Sting Specialty Enc Type Emergency Med Service Emergency Medicine Referred by Track Group [facility] ED Discharge 04/30/2014 6:20 PM Tracking Id [id number] Checkout 04/30/2014 6:20 PM Checkin 04/30/2014 4:05 PM Acuity 4 -Less Urgent Dispo Type * Discharged to Home or Self Care Arrival 04/30/2014 4:05 PM Reg Status Complete LOS 000 02:15 Address: [address] [place] [phone] Comment: PROVIDER INFORMATION Provider Role Provider Contact Time RUIZ MARVIN MD ED Provider 04/30/14 16:37 BAMBI ADDISON SOLDERER FURNACE Nurse 04/30/14 17:21 DIAGNOSIS Allergy Bee Sting Active; Hives; Reaction Allergic Active Comment: PATIENT EDUCATION INFORMATION Instructions: ALLERGIC REACTION, Other (Local); ZYRTEC; INSECT BITE Follow up: With: Address: When: MICHELLE BEAR [address] [place] [address] [phone] [employer] (9) Within As Needed Comments: For recheck If symptoms worsen Source: [employer] Document Id: [id number] documented in this encounter ED Notes Bambi [...] ADDISON RN - 04/30/2014 18:59 CDT Source: [employer] Document Id: [id number] CDT!9 Bambi Addison R.N. - 04/30/2014 6:57 [...] ADDISON RN - 04/30/2014 18:57 CDT Source: [employer] Document Id: [id number] CDT!7 Bambi Addison R.N. - 04/30/2014 6:10 [...] ADDISON RN - 04/30/2014 18:55 CDT Source: [employer] Document Id: [id number] CDT!11 Bambi Addison R.N. - 04/30/2014 5:45 [...] ADDISON RN - 04/30/2014 18:52 CDT Source: [employer] Document Id: [id number] CDT!19 Bambi Addison R.N. - 04/30/2014 5:30 [...] ADDISON RN - 04/30/2014 18:50 CDT Source: [employer] Document Id: [id number] CDT!13 Ruiz Marvin M.D. - 04/30/2014 5:22 [...] (maternal) Comments: 03/13/2014 13:47 - JORY COPPOLA COLORING MACHINE OPERATOR ear Grandfather (maternal) Comments: 03/13/2014 13:47 - JORY COPPOLA LPN larynx Cystic fibrosis Sister [place] - Lung cancer Grandmother (paternal, ) Comments: 03/13/2014 13:47 - JORY COPPOLA COLORING MACHINE OPERATOR brain cancer Hypothyroidism Mother Myocardial infarction Father: [...] PM This document has images extracted. Source: [facility] POWERCHART Document Id: [id number]} Bambi Addison RRoverto - 04/30/2014 4:22 PM [...] Medical ; Code: 300.4 ; Contributor System: [facility]_HX_PR_UPLOAD ; Last Updated: 11/18/2013 19:04 CDT ; Life Cycle Status: Active ; Vocabulary: ICD-9-CM ; Comments: - Dysthymic disorder Headache (ICD-9-CM :784.0 ) Name of Problem: Headache ; Onset Date: 10/24/2007 ; Confirmation: Confirmed ; Classification: Medical ; Code: 784.0 ; Contributor System: [facility]_HX_PR_UPLOAD ; Last Updated: 11/18/2013 19:04 CDT ; [...] Medical ; Code: V22.2 ; Contributor System: [email or web address] ; Last Updated: 01/21/2012 9:41 CDT ; Life Cycle Date: 01/12/2012 ; Life Cycle Status: Active ; Responsible Provider: GLEN ACOSTA; Vocabulary: ICD-9-CM Diagnoses(Active) Hand pain-swelling Date: 04/30/2014 ; Diagnosis Type: Reason For Visit ; Confirmation: Complaint of ; Clinical Dx: Hand pain-swelling ; Classification: Medical ; Clinical Service: Emergency medicine ; Code: PNED ; Probability: 0 ; Diagnosis Code: [id number] Triage Chief Complaint Description : see triage note Mode of Arrival ED : Private vehicle, Ambulatory Track : Medical Languages : Lebanese Is Patient Female and [...] ADDISON RN - 04/30/2014 16:22 CDT Source: [facility] sourceasy Document Id: [id number] CDT!53 Bambi Addison R.N. - 04/30/2014 4:11 [...] Medical ; Code: 300.4 ; Contributor System: [facility]_HX_PR_UPLOAD ; Last Updated: 11/18/2013 19:04 CDT ; Life Cycle Status: Active ; Vocabulary: ICD-9-CM ; Comments: - Dysthymic disorder Headache (ICD-9-CM :784.0 ) Name of Problem: Headache ; Onset Date: 10/24/2007 ; Confirmation: Confirmed ; Classification: Medical ; Code: 784.0 ; Contributor System: [employer]_PR_UPLOAD ; Last Updated: 11/18/2013 19:04 CDT ; [...] Medical ; Code: V22.2 ; Contributor System: [email or web address] ; Last Updated: 01/21/2012 9:41 CDT ; Life Cycle Date: 01/12/2012 ; Life Cycle Status: Active ; Responsible Provider: GLEN ACOSTA; Vocabulary: ICD-9-CM Diagnoses(Active) Hand pain-swelling Date: 04/30/2014 ; Diagnosis Type: Reason For Visit ; Confirmation: Complaint of ; Clinical Dx: Hand pain-swelling ; Classification: Medical ; Clinical Service: Emergency medicine ; Code: PNED ; Probability: 0 ; Diagnosis Code: [id number] Triage Chief Complaint Description : was stung by bee last grace and awoke this am with left wrist and hand swollen and red. Information Given By : Patient Accompanied By : Alone Mode of Arrival ED : Private vehicle, Ambulatory Track : Medical Languages : Lebanese Patient Informed of Triage Location : Emergency [...] : 4 -Less Urgent Tracking Group : [facility] ED BAMIB ADDISON SHRUTHI - 04/30/2014 16:11 CDT Allergy (As Of: 04/30/2014 16:17:45 CDT) Allergies (Active) penicillins Estimated Onset Date: Unspecified ; Created By: GLEN ACOSTA; Reaction Status: Active ;Category: Drug ; Substance: penicillins ; Type: Allergy ; Updated By: GLEN ACOSTA; Reviewed Date: 03/13/2014 13:40 CDT Source: [employer] Document Id: [id number] CDT!49 documented in this encounter Miscellaneous Notes Miscellaneous - Bambi Addison R.N. - 04/30/2014 7:00 PM CDT Valuables/Belongings Valuables/Belongings Entered On: 04/30/2014 19:00 CDT Performed On: 04/30/2014 19:00 CDT by BAMBI ADDISON RN Valuables/Belongings Valuables/Belongings Grid Valuables with Patient Clothes, Patient Valuables : Pants, Shirt, Shoes, Undergarments Electronic Devices : Cell phone BAMBI ADDISON RN - 04/30/2014 19:00 CDT Source: [employer] Document Id: [id number] CDT!6 Miscellaneous - Bambi Addison R.N. - [...] Control : 5 Lynx Visit Level : 61412 Level 3 Treatments Prior to Arrival : None BAMBI ADDISON RN - 04/30/2014 19:00 CDT Source: [facility] [employer] Document Id: [id number] CDT!18 documented in this encounter Plan of Treatment Scheduled Procedures Name Priority Associated Diagnoses Date/Time COLONOSCOPY Diarrhea documented as of this encounter Visit Diagnoses Not on filedocumented in this encounter Additional Health Concerns Assessment Noted Time PHQ-9 Depression Total Score: 16 04/02/2014 9:58 AM CD T documented as of this encounter
--- OUTSIDE RECORDS SUMMARY | 2022-07-03 10:42 | XMS_ITS | Encounter Summary ---
:1985 Author Organization [facility] Address [address] [place] [address] Care Team Providers Name Role Phone Unavailable Primary Care Provider Unavailable Encounter Details Date Type Department Care Team Description 03/13/2014 Hospital Encounter HX [facility] FAMILYPR[facility] Michelle Bear M.D. [address] [place] [address] (Wo rk) Social History Tobacco Use Types [...] How often do you attend temple or christianity More than 4 time s [...] Bear M.D. - 03/13/2014 1:30 PM CDT [id number] A 28-year-old female is here to establish care. She lives in [place] with the father of her son, who is 6 years old. She states they have been together for about 8 years. They are thinking about perhaps another this fall. She delivered here in [place] [address] Kinney. Her [...] I would like to refer her to [place], to the bariatric program. I believe that [...] BEAR MD On: 03/14/2014 12:48 PM Source: [facility] MHSDOLBEYNONRADSYS Document Id: [id number] documented in this encounter Miscellaneous Notes Miscellaneous - Nicolette Moise, JOSEFA, C.N.P. - 05/28/2014 2:00 PM CDT Ambulatory Patient Summary [facility] [address], [address] [place], [place] [phone] Visit Information Name: PUNEET FRIED [facility] Number: [id number] Current Date: 05/28/2014 14:00:54 Physicians [...] appointment detail needed. Your Goals/Additional instructions: Source: [facility] POWERCHART Document Id: [id number] Miscellaneous - Nicolette Moise APRN, C.N.P. - 05/28/2014 2:00 PM CDT Ambulatory Discharge Medication List [facility] [address] [place], [place] [phone] Visit Information Name: PUNEET FRIED [facility] Number: [id number] Visit Date: 05/28/2014 14:00:53 Attending [...] Signed By: Signed On: Additional Information: Source: [facility] POWERCHART Document Id: [id number] Miscellaneous - Jory Coppola L.P.N. - 03/14/2014 [...] COPPOLA LPN - 03/14/2014 8:25 CDT Source: [facility] Document Id: [id number] CDT!13 Miscellaneous - Jory Coppola L.P.N. - 03/13/2014 1:50 PM CDT Adult Repairer Handtools Intake/History Adult Repairer Handtools Intake/History Entered On: 03/13/2014 13:53 CDT Performed [...] Given By : Patient Languages : Slovak JORY COPPOLA LPN - 03/13/2014 13:50 CDT [...] COPPOLA LPN - 03/13/2014 13:50 CDT Source: [facility] Document Id: [id number] CDT!37 Miscellaneous - Jory Coppola L.P.N. - [...] Mobility Assistance Prior to Admission : Independent OJRY COPPOLA LPN - 03/13/2014 13:49 CDT Dependent [...] CDT Psychosocial Domestic Abuse Concerns : None Gnosticism Preference : No qualifying data available. ANAT JORY Esther JEANETTE - 03/13/2014 13:49 CDT Advance Directive Advanced Directives : No JORY COPPOLA LPN - 03/13/2014 13:49 CDT Educ Needs Learning Style Preference Adult Grid Patient : None Family : None JORY COPPOLA LPN - 03/13/2014 13:49 CDT [facility] Document Id: [id number] CDT!40 documented in this encounter Plan of Treatment Scheduled Procedures Name Priority Associated Diagnoses Date/Time COLONOSCOPY Diarrhea documented as of this encounter Visit Diagnoses Not on filedocumented in this encounter Additional Health Concerns Assessment Noted Time PHQ-9 Depression Total Score: 11 03/14/2014 8:25 AM CD T documented as of this encounter
--- OUTSIDE RECORDS SUMMARY | 2022-07-03 10:42 | XMS_ITS | Encounter Summary ---
:1985 Author Organization [facility] Address [address] [place] [address] Care Team Providers Name Role Phone Unavailable Primary Care Provider Unavailable Encounter Details Date Type Department Care Team Description 11/01/2014 Hospital [facility] Maureen Berman P.A.-C., M.S. [address] [place] [phone] (Wo rk) Social History Tobacco Use Types [...] How often do you attend baptism or mu-ism More than 4 time s [...] P.A.-C., M.S. - 11/01/2014 9:05 AM CDT [id number] CHIEF COMPLAINT/REASON FOR VISIT Headache management. HISTORY [...] MONACO PA-C On: 11/05/2014 01:01 PM Source: [facility] MHSDOLBEYNONRADSYS Document Id: [id number] documented in this encounter Miscellaneous Notes Miscellaneous - Rosalind Berman P.A.-C., M.S. - 11/01/2014 10:51 AM CDT Normal Results Letter 01 November 2014 PUNEET FRIED [address] [place] [id number] Dear PUNEET FRIED, I am pleased to [...] 11/01/2014 150 - 450 Sincerely, ROSALIND MONACO [address] [place] [address] Electronic Signature Electronically Signed By: ROSALIND MONACO PA-C On: 01 November 2014 This document has images extracted. Source: [facility] POWERCHART Document Id: [id number] Miscellaneous - Conversion, Historical Provider Ser - 11/01/2014 9:12 AM CDT Adult It Quality Analyst Intake/History Adult It Quality Analyst Intake/History Entered On: 11/01/2014 9:14 CDT Performed On: 11/01/2014 9:12 CDT by FRANCIEИРИНАBARBARA Nena [facility] Intake Chief Complaint : headache management LMP [...] Mass Index : 57.68 kg/m2 BARBARA VALLES [facility] - 11/01/2014 9:12 CDT General Info Information Given By : Patient Languages : [place] Citizen Is Patient Female and 13-50 no hysterectomy : Yes Status : Patient denies Are you ? : No BARBARA VALLES Nena [facility] - 11/01/2014 9:12 CDT Subjective Pain Symptoms : Yes FRANCIEИРИНАBARBARA Nena [facility] - 11/01/2014 9:12 CDT Pain Scale Pain Scale Verbal 0-10 : Open BARBARA VALLES Nena [facility] - 11/01/2014 9:12 CDT Pain Pain Assessment Grid Pain 1 Location : Head Intensity : 8 BARBARA VALLES Nena [facility] - 11/01/2014 9:12 CDT Dependent Habits Tobacco Use/Currently Using : Yes Tobacco Use/Advised to Quit : Yes Exposure to Tobacco Smoke : Patient smokes Smoking Status : Current every day smoker BARBARA VALLES Nena [facility] - 11/01/2014 9:12 CDT Tobacco Use Grid Type : Cigarettes Cigarette Use Packs/Day : 0.5 Last Use : 04/30/2014 FRANCIEBARBARA GIFFORD [facility] - 11/01/2014 9:12 CDT Caffeine Use Grid Caffeine Use : Current Type : Coffee, Soft drinks Frequency : Daily BARBARA VALLES [facility] - 11/01/2014 9:12 CDT Recreational Drug Use Grid Drug Use : None BARBARA VALLES [facility] - 11/01/2014 9:12 CDT ID Screen Travel Within Last 21 Days : No Contact with someone with Ebola : No BARBARA VALLES [facility] - 11/01/2014 9:12 CDT Source: [facility] POWERCHART Document Id: [id number] CDT!50 documented in this encounter Plan of [...] X109L Erythrocytes 4.74 3.90 - 5.03 POWERCHART M9546O HX RDW 13.2 11.9 - 15.5 POWERCHART [...]
--- OUTSIDE RECORDS SUMMARY | 2022-07-03 10:42 | XMS_ITS | Encounter Summary ---
:[address] [facility] Address [address] [place] [address] Care Team Providers Name Role Phone Unavailable Primary Care Provider Unavailable Encounter Details Date Type Department Care Team Description 05/04/2014 Hospital Encounter [facility] Oralia San O.D. Social History Tobacco [...] How often do you attend sabianist or pentecostal More than 4 time s [...] ( ORTHO ) Current RX: Sphere Cylinder Lovelady Add Prism Right Eye ( -2.00 ) [...] ROACH OD On: 05/04/2014 11:27 AM Source: [facility] POWERCHART Document Id: [id number] documented in this encounter H&P Notes Oralia Roach O.D. - 05/04/2014 10:37 AM CDT [id number] The patient is in today noticing some [...] given for new glasses. Trials for Acuvue Artesia were dispensed along with Biotrue kit. Patient [...] ROACH OD On: 05/07/2014 09:34 AM Source: [facility] MHSDOLBEYNONRADSYS Document Id: [id number] documented in this encounter Miscellaneous Notes Miscellaneous [...] if needed ) ( ) Call for Street Superintendent ( ) Follow up on Results ( ) Other: PROVIDER: ( ) Call Physician ( ) Call Pharmacist ( ) Call Lab ( ) Other: Special Instructions: Comments: Source: [facility] POWERCHART Document Id: [id number] Electronically signed by [facility] Neuropsychology Service Director [id number] at 01/19/2017 11:34 AM CDT Miscellaneous - Oralia Roach O.D. - 05/04/2014 11:49 AM CDT Ambulatory Patient Summary [facility] [address] [place] [address] [address] [place], [place] [phone] Visit Information Name: FRIEDPUNEET CLAY CHRISTIANO [facility] Number: [id number] Current Date: 05/04/2014 11:49:30 Physicians [...] appointment detail needed. Your Goals/Additional instructions: Source: [facility] POWERCHART Document Id: [id number] Miscellaneous - Oralia Roach O.D. - 05/04/2014 11:49 AM CDT Ambulatory Discharge Medication List [facility] [address] [place], [place] [phone] Visit Information Name: PUNEET FRIED [facility] Number: [id number] Visit Date: 05/04/2014 11:49:29 Attending [...] OD Signed On:04-MAY-2014 11:48:28 Additional Information: Source: [facility] POWERCHART Document Id: [id number] Miscellaneous - Vu Craven C.O.A. 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 Stone Polisher Machine Intake/History Adult Stone Polisher Machine Intake/History Entered On: 05/04/2014 10:51 CDT Performed On: 05/04/2014 10:51 CDT by VU CRAVEN Intake Chief Complaint : EYE EXAM Height : 158 cm(Converted to: 5 ft 2 inch(es), 62 inch(es)) VU CRAVEN - 05/04/2014 10:51 CDT General Info Information Given By : Patient Languages : Danish Is Patient Female and 13-50 no hysterectomy [...] VU CRAVEN - 05/04/2014 10:51 CDT Source: [employer] Document Id: [id number] CDT!29 documented in this encounter Plan of Treatment Scheduled Procedures Name Priority Associated Diagnoses Date/Time COLONOSCOPY Diarrhea documented as of this encounter Visit Diagnoses Not on filedocumented in this encounter Additional Health Concerns Assessment Noted Time PHQ-9 Depression Total Score: 18 05/02/2014 9:45 AM CD T documented as of this encounter
--- OUTSIDE RECORDS SUMMARY | 2022-07-03 10:42 | XMS_ITS | Encounter Summary ---
:1985 Author Organization [facility] Address [address] [place] [address] Care Team Providers Name Role Phone Unavailable [...] How often do you attend taoist or congregation More than 4 time s [...] Magallanes, Ph.D. - 11/15/2012 12:00 AM CDT [id number] LETTER Carol Dowell Juarez [address] [place] [phone] November 15, 2012 Dear Carol: In reviewing my records, I realized that I have not seen you for sometime. I am writing, therefore, to determine if you are interested in continuing therapy and desire to schedule a new appointment. If you would like an appointment, please call our permastone applicator at [phone] or . Ifwe do not hear from you within two weeks, we will assume that your are not interested in scheduling further appointments. I look forward to hearing from you. Sincerely, Kaye Magallanes, Ph.D., L.P. Source: [facility] Document Id: [id number] Electronically signed by Conversion, [facility] Technical Services Assistant [id number] at 01/18/2017 10:03 PM CDT documented in this encounter Plan of Treatment Scheduled Procedures Name Priority Associated Diagnoses Date/Time COLONOSCOPY Diarrhea documented as of this encounter Visit Diagnoses Not on filedocumented in this encounter
--- OUTSIDE RECORDS SUMMARY | 2022-07-03 10:42 | XMS_ITS | Encounter Summary ---
:1985 Author Organization [facility] [place] [facility] Address [address] [place] [address] Care Team Providers Name Role Phone Unavailable [...] How often do you attend sabianist or christian More than 4 time s [...] Magallanes, Ph.D. - 04/15/2012 12:00 AM CDT [id number] LETTER Carol Dowell Juarez [address] [place] [phone] April 15, 2012 Dear Carol: Our records [...] to keep this appointment, please call the [facility] [place] [facility] as soon as possible at or toll-free to reschedule or cancel. We look forward to hearing from you. Thank you, [facility] [place] Source: [facility] RWHXTRANSXRTFSYS Document Id: [id number] documented in this encounter Plan of Treatment Scheduled Procedures Name Priority Associated Diagnoses Date/Time COLONOSCOPY Diarrhea documented as of this encounter Visit Diagnoses Not on filedocumented in this encounter
--- OUTSIDE RECORDS SUMMARY | 2022-07-03 10:42 | XMS_ITS | Encounter Summary ---
:1985 Author Organization [facility] Address [address] [place] [address] Care Team Providers Name Role Phone Unavailable Primary Care Provider Unavailable Encounter Details Date Type Department Care Team Description 01/25/2013 Hospital Encounter [facility] Renuka [place]. [address] [place] [phone] (Wo rk) Social History Tobacco [...] How often do you attend worship or religion More than 4 time s [...] Borges M.D. - 01/25/2013 9:45 AM CDT [id number] SUBJECTIVE: Carol Juarez is an 27 year [...] line 8-2-10, 06/11/10 Alcohol Use: Yes rare Rn Psychiatric History: No history of STDs. PAP NIL [...] to procedure - YES. ASSESSMENT: Satisfactory annual oracle fusion consultant exam Desires Mirena IUD removal and re-insertion Obesity PLAN: Dx: 1) Pap smear 2) GC/CT 3) Fasting lipid profile/ fasting glucose/ TSH with reflex free T4 4) Mirena IUD removed/ IUD re-insertion. Will check a TVUS to confirm proper placement PE: Reviewed health maintenance including diet, regular exercise and periodic exams. Source: [facility] RWHXTRANSXRTFSYS Document Id: [id number] Electronically signed by Conversion, [facility] Trimmer Press [employer]ppings [id number] at 01/18/2017 6:08 PM CDT documented in this encounter Miscellaneous Notes Miscellaneous - Nyasia Borges M.D. - 01/25/2013 9:45 AM CDT [id number] January 30, 2013 Carol Juarez [address] [place] [phone] Your doctor has requested to have you return for a thryoid, glucose, and cholesterol test at this time. You may call our office at [phone] in Obstetrics/Gynecology to schedule an appointment. Please ask to schedule a LAB APPOINTMENT Please disregard this notice if you already have had this lab repeated or have already made an appointment. Sincerely, Lory Hardy Source: [facility] RWHXTRANSXRTFSYS Document Id: [id number] Electronically signed by Conversion, [facility] Trimmer [employer]ppings [id number] at 01/18/2017 6:08 PM CDT documented in this encounter Plan [...] Volume Laterality 01/26/2013 2:02 PM CDT Narrative [facility] - 10/23/19 14 9:59 PM PROJECT ECONOMIST Negative for C. trachomatis rRNA by tax intern mediated amplification. A negative result by tax intern media pipe amplification does not preclude the presence of C. trachomatis infection bec ause results are dependent on proper and adequate collection, absence of inhi bitors, and sufficient rRNA to be detected. Historical Provider LAB HISTORICAL ORDERS Performing Organization Address City/[facility]/ZIP Code Phon e Number [facility] HX SN - SPEC - DESCRIPTION (01/26/2013 2:02 PM CDT) P athologist Signature HXSPECIMAN Cervix [facility] Specimen (Source) Anatomical Collection Method Collection Time Re ceived Time Location / / Volume Laterality 01/26/2013 2:02 PM CDT Historical Provider LAB HISTORICAL ORDERS Performing Organization Address City/State/ZIP Code Phon e Number [facility] Chlamydia trachomatis Amplified RNA (01/26/2013 2:02 PM CDT) Specimen (Source) Anatomical Collection Method Collection Time Re ceived Time Location / / Volume Laterality 01/26/2013 2:02 PM CDT Narrative [facility] - 10/23/19 14 9:59 PM PROJECT ECONOMIST Negative for N. gonorrhoeae rRNA by tax intern mediated amplification. A negative result by tax intern media pipe amplification does not preclude the presence of N. gonorrhoeae infection bec ause results are dependent on proper and adequate collection, absence of inhi bitors, and sufficient rRNA to be detected. Historical Provider LAB MICROBIOLOGY - GENERAL O RDERABLES Performing Organization Address City/[facility]/ZIP Code Phon e Number [facility] HX SN - SPEC - DESCRIPTION (01/26/2013 2:02 PM CDT) P athologist Signature HXSPECIMAN Cervix [facility] Specimen (Source) Anatomical Collection Method Collection Time Re ceived Time Location / / Volume Laterality 01/26/2013 2:02 PM CDT Historical Provider LAB HISTORICAL ORDERS Performing Organization Address City/State/ZIP Code Phon e Number [facility] documented in this encounter Visit Diagnoses Not on filedocumented in this encounter
--- OUTSIDE RECORDS SUMMARY | 2022-07-03 10:42 | XMS_ITS | Encounter Summary ---
:1985 Author Organization [facility] Address [address] [place] [address] Care Team Providers Name Role Phone Unavailable Primary Care Provider Unavailable Encounter Details Date Type Department Care Team Description 03/15/2014 Hospital Encounter HX [facility] Jessica Bear M.D. [address] [place], [place] [phone] (Wo rk) Social History [...] How often do you attend caodaism or synagogue More than 4 time s [...] Results Letter 16 March 2014 PUNEET FRIED [address] [place] [id number] Dear PUNEET FRIED, I am pleased to [...] 03/15/2014 150 - 450 Sincerely, MICHELLE BEAR [address] [place] [phone] Electronic Signature Electronically Signed By: MICHELLE BEAR MD On: 16 March 2014 This document has images extracted. Source: [facility] POWERCHART Document Id: [id number] Electronically signed by Conversion, [facility] Hand Binder Stripper [id number] at 01/19/2017 1:49 PM CDT documented in [...] Erythrocytes 5.16 (H) 3.90 - POWERCHART 5.03 [id number] HX RDW 13.3 11.9 - POWERCHART 15.5 [...] S MGDL eGFR >60 >=60 POWERCHART Black/ [id number] [place] HXeGFR (MDRD) >60 >=60 POWERCHART [id number] Comment: Results are in mL/min/1.73m CKD Stage [...]
--- OUTSIDE RECORDS SUMMARY | 2022-07-03 10:42 | XMS_ITS | Encounter Summary ---
:1985 Author Organization [facility] Address [address] [place] [address] Care Team Providers Name Role Phone Unavailable [...] How often do you attend hinduism or christianity More than 4 time s [...] Marisol Couch - 12/08/2011 12:00 AM CDT [id number] MARIA T Dowell [address] [phone] [facility] December 08, 2011 Dear Carol: Our records indicate that you recently cancelled your appointment with Kaye Magallanes, Ph.D., L.P.. Thank you for notifying our office. Your next scheduled appointment is: Friday, December 23, 2011 at 12:00 PM If you are unable to keep this appointment, please call the [facility] Department at your earliest convenience at or toll-free at to or cancel or reschedule. We look forward to hearing from you. Thank you, [facility] Source: [facility] Document Id: [id number] documented in this encounter Plan of Treatment Scheduled Procedures Name Priority Associated Diagnoses Date/Time COLONOSCOPY Diarrhea documented as of this encounter Visit Diagnoses Not on filedocumented in this encounter
--- OUTSIDE RECORDS SUMMARY | 2022-07-03 10:42 | XMS_ITS | Encounter Summary ---
:1985 Author Organization [facility] Address [address] [place] [address] Care Team Providers Name Role Phone Unavailable Primary Care Provider Unavailable Encounter Details Date Type Department Care Team Description 03/24/2012 Hospital En[facility] [address] [place] [phone] (Wo rk) Social History Tobacco Use [...] How often do you attend mormon or temple More than 4 time s [...] Farias M.D. - 03/24/2012 12:00 AM CDT [id number] CHIEF COMPLAINT/REASON FOR VISIT Urinary frequency. HISTORY [...] expressed understanding of the content Leonora Brito M.D./[facility] Electronically Signed By: LEONORA NATHAN MD On: 04/05/2012 10:30 AM Modified by and Electronically Signed by: LEONORA NATHAN MD On: 04/05/2012 10:29 AM Source: [facility] MHSDOLBEYNONRADSYS Document Id: [id number] documented in this encounter Miscellaneous Notes Miscellaneous - Leonora Farias M.D. - 03/24/2012 11:41 AM CDT Ambulatory Patient Summary [phone] [place] [address] Visit Information Name: PUNEET FRIED Current Date: [...] No Appointments found Your Goals/Additional instructions: Source: [facility] POWERCHART Document Id: [id number] Leonora Russell M.D. - 03/24/2012 11:41 AM CDT Ambulatory Depart Summary [address] [address] Visit Information Name: PUNEET FRIED Visit Date: [...] your provider for clarification. Additional Information: Source: [facility] A&E Complete Home ServicesCHART Document Id: [id number] Mimi Gaines L.P.N. - 03/24/2012 11:23 AM CDT Adult Transformer Repairer Intake/History Adult Transformer Repairer Intake/History Entered On: 03/24/2012 11:30 CDT Performed [...] Preferred Communication Mode : Verbal Languages : Mauritanian MIMI HERRERA LPN, RT - 03/24/2012 11:23 [...] ACOSTA; Reviewed Date: 01/21/2012 9:28 CDT Source: [facility] POWERCHART Document Id: [id number] documented in this encounter Plan of Treatment [...] Results Urine Microscopic (03/24/2012 11:34 AM CDT) [facility] Method Time Signature HXUr WBC 10-25 0 [...] POWERCHART Urinalysis, Routine (03/24/2012 11:34 AM CDT) [facility] Method Time Signature HXUr Color Yellow POWERCHART Appearance Slightly POWERCHART Cloudy Glucose Negative POWERCHART HXBILIRUBIN Negative POWERCHART Ketones, QL(U) Negative POWERCHART Specific 1.025 1.000 - POWERCHART [place], POCT, U 1.030 pH, POCT, Urine 5.5 5.0 - 8.0 POWERCHART Protein, Ur, Dip Negative POWERCHART Urobilinogen 0.2 POWERCHART HXNITRITE Positive POWERCHART HXBLOOD Trace-lysed POWERCHART Leukocyte 1+ POWERCHART Esterase Source Clean Void POWERCHART Urine Specimen (Source) Anatomical Collection Method Collection Time Re ceived Time Location / / Volume Laterality Urine 03/24/2012 11:34 AM CDT Leonora Flaherty M.D. LAB URINE ORDERABLES Performing Organization Address City/State/ZIP Code Phon e Number POWERCHART documented in this encounter Visit Diagnoses Not on filedocumented in this encounter
--- OUTSIDE RECORDS SUMMARY | 2022-07-03 10:42 | XMS_ITS | Encounter Summary ---
:1985 Author Organization [facility] Address [address] [place] [address] Care Team Providers Name Role Phone Unavailable Primary Care Provider Unavailable Encounter Details Date Type Department Care Team Description 04/07/2013 Hospital Encounter [facility] Ysabel Reyes R.NBrittaney [address] [phone] Social History Tobacco Use Types [...] How often do you attend catholic or anabaptism More than 4 time s [...] Reyes R.N. - 04/07/2013 12:00 AM CDT [id number] Bug bite on Wednesday when she was in [place]. Pt stated bug was a flying not [...] Allergies reviewed and problem list reviewed. Source: [facility] RWHXTRANSXRTFSYS Document Id: [id number] documented in this encounter Plan of Treatment Scheduled Procedures Name Priority Associated Diagnoses Date/Time COLONOSCOPY Diarrhea documented as of this encounter Visit Diagnoses Not on filedocumented in this encounter
--- OUTSIDE RECORDS SUMMARY | 2022-07-03 10:42 | XMS_ITS | Encounter Summary ---
:1985 Author Organization [facility] Address [address] [place] [address] Care Team Providers Name Role Phone Unavailable Primary Care Provider Unavailable Encounter Details Date Type Department Care Team Description 05/10/2014 Hospital Encounter [facility] Oralia San O.D. Social History Tobacco [...] How often do you attend yazidi or orthodoxy More than 4 time s [...] ROACH OD On: 05/10/2014 09:44 AM Source: [email or web address] POWERCHART Document Id: [id number] documented in this encounter Miscellaneous Notes Miscellaneous - Oralia Roach O.D. - 05/10/2014 9:11 AM CDT Ambulatory Patient Summary [facility] [address] [place], [place] [phone] Visit Information Name: PUNEET FRIED [facility] Number: [id number] Current Date: 05/10/2014 09:11:03 [...] appointment detail needed. Your Goals/Additional instructions: Source: [facility] POWERCHART Document Id: [id number] YS Duke - Oralia Roach O.D. 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 Linux Devops Engineer Intake/History Entered On: 05/10/2014 8:55 CDT Performed On: 05/10/2014 8:55 CDT by RAKEL MARTINEZ Intake Chief Complaint : CONTACT LENS CHECK Height : 158 cm(Converted to: 5 ft 2 inch(es), 62 inch(es)) RAKEL MARTINEZ - 05/10/2014 8:55 CDT General Info Information Given By : Patient Languages : Hungarian Is Patient Female and 13-50 no hysterectomy [...] RAKEL MARTINEZ - 05/10/2014 8:55 CDT Source: [facility] SlideBatch Document Id: [id number] CDT!29 documented in this encounter Plan of Treatment Scheduled Procedures Name Priority Associated Diagnoses Date/Time COLONOSCOPY Diarrhea documented as of this encounter Visit Diagnoses Not on filedocumented in this encounter Additional Health Concerns Assessment Noted Time PHQ-9 Depression Total Score: 05/02/2014 9:45 AM CD T documented as of this encounter
--- OUTSIDE RECORDS SUMMARY | 2022-07-03 10:42 | XMS_ITS | Encounter Summary ---
:1985 Author Organization [facility] Address [address] [place] [address] Care Team Providers Name Role Phone Unavailable Primary Care Provider Unavailable Encounter Details Date Type Department Care Team Description 08/02/2013 Hospital Encounter HX NO MAPPING Berny Garcia M.D. [address] [place], [place] [phone] (Wo rk) Social History [...]
--- OUTSIDE RECORDS SUMMARY | 2022-07-03 10:42 | XMS_ITS | Encounter Summary ---
:1985 Author Organization [facility] Address [address] [place] [address] Care Team Providers Name Role Phone Unavailable Primary Care Provider Unavailable Encounter Details Date Type Department Care Team Description 05/28/2014 Hospital Encounter HX [facility] Jalen Nesbitt, JOSEFA, C.N.P., D. N.P. [address] [place] [phone] (Wo rk) Social History Tobacco [...] How often do you attend anabaptist or jehovah's witness More than 4 time [...] APRN, C.N.P. - 05/28/2014 2:27 PM CDT [id number] CHIEF COMPLAINT/REASON FOR VISIT Cough and cold [...] Pino/robb Electronically Signed By: JALEN NESBITT RN, PATENTS EXAMINER On: 05/30/2014 08:27 AM Source: [facility] MHSDOLBEYNONRADSYS Document Id: [id number] documented in this encounter Miscellaneous Notes Miscellaneous - Jude Cardona L.P.N. - 05/28/2014 2:31 PM CDT Adult Real Estate Transaction Coordinator Intake/History Adult Real Estate Transaction Coordinator Intake/History Entered On: 05/28/2014 14:32 CDT Performed [...] 05/28/2014 14:31 CDT General Info Languages : Cuban Is Patient Female and 13-50 no hysterectomy [...] CARDONA LPN - 05/28/2014 14:31 CDT Source: [employer] Document Id: [id number] CDT!39 documented in this encounter Plan of Treatment Scheduled Procedures Name Priority Associated Diagnoses Date/Time COLONOSCOPY Diarrhea documented as of this encounter Visit Diagnoses Not on filedocumented in this encounter Additional Health Concerns Assessment Noted Time PHQ-9 Depression Total Score: 18 05/02/2014 9:45 AM CD T documented as of this encounter
--- OUTSIDE RECORDS SUMMARY | 2022-07-03 10:42 | XMS_ITS | Encounter Summary ---
:1985 Author Organization [facility] Address [address] [place] [address] Care Team Providers Name Role Phone Unavailable Primary Care Provider Unavailable Encounter Details Date Type Department Care Team Description 08/02/2013 Hospital Encounter HX NO MAPPING Berny Gacria M.D. [address] [place], [place] [phone] (Wo rk) Social History [...] How often do you attend restorationist or buddhism More than 4 time s [...]
--- OUTSIDE RECORDS SUMMARY | 2022-07-03 10:42 | XMS_ITS | Encounter Summary ---
:1985 Author Organization [facility] Address [address] [place] [address] Care Team Providers Name Role Phone Unavailable [...] How often do you attend presybeterian or congregation More than 4 time s [...]
--- OUTSIDE RECORDS SUMMARY | 2022-07-03 10:43 | XMS_ITS | Encounter Summary ---
:1985 Author Organization [facility] Address [address] [place] [address] Care Team Providers Name Role Phone Unavailable [...] How often do you attend presybeterian or shinto More than 4 time s [...]
--- OUTSIDE RECORDS SUMMARY | 2022-07-03 10:43 | XMS_ITS | Encounter Summary ---
:1985 Author Organization [facility] Address [address] [place] [address] Care Team Providers Name Role Phone Unavailable [...] How often do you attend temple or shinto More than 4 time s [...]
--- OUTSIDE RECORDS SUMMARY | 2022-07-03 10:43 | XMS_ITS | Encounter Summary ---
:1985 Author Organization [facility] Address [address] [place] [address] Care Team Providers Name Role Phone Unavailable [...] often do you attend roman catholic or church More than 4 time [...] Marisol Couch - 08/11/2011 12:00 AM CST [id number] MARIA T Dowell [address] [phone] [facility] August 11, 2011 Dear Carol: Our records indicate that you recently cancelled your appointment with Kaye Magallanes, Ph.D., L.P.. Thank you for notifying our office. Your next scheduled appointment is: Thursday, August 18, 2011 at 10:00 AM If you are unable to keep this appointment, please call the [facility] [place] Department at your earliest convenience at or toll-free at to or cancel or reschedule. We look forward to hearing from you. Thank you, [facility] [place] Source: [facility] Document Id: [id number] documented in this encounter Plan of Treatment Scheduled Procedures Name Priority Associated Diagnoses Date/Time COLONOSCOPY Diarrhea documented as of this encounter Visit Diagnoses Not on filedocumented in this encounter
--- OUTSIDE RECORDS SUMMARY | 2022-07-03 10:43 | XMS_ITS | Encounter Summary ---
:1985 Author Organization [facility] Address [address] [place] [address] Care Team Providers Name Role Phone Unavailable Primary Care Provider Unavailable Encounter Details Date Type Department Care Team Description 08/28/2011 Hospital Encounter [facility] Jairon Wolf M.D. [address] [place] [address] [phone] (Wo rk) Social History Tobacco [...] Roberts M.D. - 08/28/2011 2:10 PM CST [id number] CC: follow up ER visit HPI: Carol [...] negative. GI: negative. BREAST: negative. : negative. ACTIVITIES CONCIERGE: no breast pain or new or enlarging lumps on self exam. CV: negative. PULMONARY: No shortness of breath, dyspnea on exertion, cough, or hemoptysis. MUSCULOSKELETAL: negative. PSYCH: negative. PHYSICAL EXAM: This is a well-developed, well-nourished female in no apparent distress. Vitals: BP 126/78 Ht 1.588 m (5' 2.5) Wt 122.244 kg (269 lb 8 oz) BMI 48.51 kg/m2 Source: [facility] Document Id: [id number] Electronically signed by Conversion, [facility] Porcelain Enamel Repairer [id number] at 01/23/2017 2:30 PM CDT documented in this encounter Miscellaneous Notes Miscellaneous - Mary Teran L.PBrittaneyN. - 08/28/2011 2:10 PM CST [id number] Carol Juarez [address] [facility] [address] [facility] August 31, 2011 Dear Juarez: I am writing to inform you the results of the laboratory tests you had done during your recent visitto the clinic. Your results included : STD tests (chlamydia and gonorrhea) were all negative. It was a pleasure to see you in the clinic. If you have any further questions or problems, please contact our office at [phone]. Sincerely, Dr Obie Roberts Dept. LEAD SOFTWARE ENGINEER [facility] Source: [facility] Document Id: [id number] Electronically signed by Conversion, [facility] Porcelain Enamel Repairer [id number] at 01/23/2017 2:30 PM CDT documented in this encounter Plan of Treatment Scheduled Procedures Name Priority Associated Diagnoses Date/Time COLONOSCOPY Diarrhea documented as of this encounter Procedures Procedure Name Priority Date/Time Associated Comments Diagnosis HX SN - SPEC - Routine 08/30/2011 3:07 PM Results for this DESCRIPTION TAILINGS DAM PUMPER procedure are i n the results section. HX SN - SPEC - Routine 08/30/2011 3:07 PM Results for this DESCRIPTION TAILINGS DAM PUMPER procedure are i n the results section. HX CHLAMYDIA Routine 08/30/2011 3:07 PM Results f or this TRACHOMATIS AMPLIFIED TAILINGS DAM PUMPER proced ure are in DNA-ID the results section. CHLAMYDIA TRACHOMATIS Routine 08/30/2011 3:07 PM Results for this AMPLIFIED RNA TAILINGS DAM PUMPER procedure are in the results section. documented in this encounter Results Chlamydia trachomatis Amplified RNA (08/30/2011 3:07 PM TAILINGS DAM PUMPER) Specimen (Source) Anatomical Collection Method Collection Time Re ceived Time Location / / Volume Laterality 08/30/2011 3:07 PM TAILINGS DAM PUMPER Narrative [facility] - 10/23/19 14 7:05 PM TAILINGS DAM PUMPER Negative for N. gonorrhoeae rRNA by heavy truck mechanic mediated amplification. A negative result by heavy truck mechanic media pipe amplification does not preclude the presence of N. gonorrhoeae infection bec ause results are dependent on proper and adequate collection, absence of inhi bitors, and sufficient rRNA to be detected. Historical Provider LAB MICROBIOLOGY - GENERAL O RDERABLES Performing Organization Address City/State/ZIP Code Phon e Number [facility] HX SN - SPEC - DESCRIPTION (08/30/2011 3:07 PM TAILINGS DAM PUMPER) [facility] gist Method Time Signature [facility] Endocerv[facility] Specimen (Source) Anatomical Collection Method Collection Time Re ceived Time Location / / Volume Laterality 08/30/2011 3:07 PM TAILINGS DAM PUMPER Historical Provider LAB HISTORICAL ORDERS Performing Organization Address [facility]/ZIP Code Phon e Number [facility] HX CHLAMYDIA TRACHOMATIS AMPLIFIED DNA-ID (08/30/2011 3:07 PM TAILINGS DAM PUMPER) Specimen (Source) Anatomical Collection Method Collection Time Re ceived Time Location / / Volume Laterality 08/30/2011 3:07 PM TAILINGS DAM PUMPER [facility] - 10/23/19 14 7:05 PM TAILINGS DAM PUMPER Negative for C. trachomatis rRNA by heavy truck mechanic mediated amplification. A negative result by heavy truck mechanic media pipe amplification does not preclude the presence of C. trachomatis infection bec ause results are dependent on proper and adequate collection, absence of inhi bitors, and sufficient rRNA to be detected. Historical Provider LAB HISTORICAL ORDERS Performing Organization Address City/[facility]/ZIP Code Phon e Number [facility] HX SN - SPEC - DESCRIPTION (08/30/2011 3:07 PM TAILINGS DAM PUMPER) [facility] Method Time Signature HXSPECIMAN Endocervical [facility] Specimen (Source) Anatomical Collection Method Collection Time Re ceived Time Location / / Volume Laterality 08/30/2011 3:07 PM TAILINGS DAM PUMPER Historical Provider LAB HISTORICAL ORDERS Performing Organization Address City/State/ZIP Code Phon e Number [facility] documented in this encounter Visit Diagnoses Not on filedocumented in this encounter
--- OUTSIDE RECORDS SUMMARY | 2022-07-03 10:43 | XMS_ITS | Encounter Summary ---
:1985 Author Organization [facility] Address [address] [place] [address] Care Team Providers Name Role Phone Unavailable [...] How often do you attend jain or yarsanism More than 4 time s [...]
--- OUTSIDE RECORDS SUMMARY | 2022-07-03 10:43 | XMS_ITS | Encounter Summary ---
:1985 Author Organization [facility] Address [address] [place] [address] Care Team Providers Name Role Phone Unavailable [...] How often do you attend zoroastrianism or hindu More than 4 time s [...] Historical Provider Ser - 09/08/2011 12:00 AM AURICULAR ACUPUNCTURIST [id number] LETTER Carol Juarez [address] [place] [id number] [facility] September 08, 2011 Dear Carol: Our records [...] to keep this appointment, please call the [facility] Department as soon as possible at or toll-free to reschedule or cancel. We look forward to hearing from you. Thank you, [facility] Source: [facility] Document Id: [id number] documented in this encounter Plan of Treatment Scheduled Procedures Name Priority Associated Diagnoses Date/Time COLONOSCOPY Diarrhea documented as of this encounter Visit Diagnoses Not on filedocumented in this encounter
--- OUTSIDE RECORDS SUMMARY | 2022-07-03 10:43 | XMS_ITS | Encounter Summary ---
:1985 Author Organization [facility] Address [address] [place] [address] Care Team Providers Name Role Phone Unavailable Primary Care Provider Unavailable Encounter Details Date Type Department Care Team Description 07/16/2010 Hospital Encounter [facility] Yamel Koch M.D. [address] [place] [address] (Wo rk) Social History Tobacco [...] How often do you attend baptism or oriental orthodox More than 4 time [...] Giang M.D. - 07/16/2010 10:30 AM CST [id number] Chief Complaint: Chief Complaint Patient presents with [...] psychotherapy. follow up in 1 month. Source: [facility] RWHXTRANSXRTFSYS Document Id: [id number] Electronically signed by Roland, [facility] Jute Bag Cutting Machine Operator [id number] at 01/24/2017 1:07 PM CDT documented in this encounter Plan of Treatment Scheduled Procedures Name Priority Associated Diagnoses Date/Time COLONOSCOPY Diarrhea documented as of this encounter Visit Diagnoses Not on filedocumented in this encounter
--- OUTSIDE RECORDS SUMMARY | 2022-07-03 10:43 | XMS_ITS | Encounter Summary ---
:1985 Author Organization [facility] Address [address] [place] [address] Care Team Providers Name Role Phone Unavailable Primary Care Provider Unavailable Encounter Details Date Type Department Care Team Description 08/28/2011 Hospital En[facility] Celia Schwab RRoverto Social History Tobacco Use [...] How often do you attend holiness or anabaptism More than 4 time s [...] Dejesus R.N. - 08/28/2011 12:00 AM CST [id number] Appointment requested for: check my IUD Subjective [...] Obstetrics &Gynecology page 261, 264 Appointment scheduled: automotive service technician today Source: [facility] RWHXTRANSXRTFSYS Document Id: [id number] Electronically signed by Roland, [facility] Metal Die Finisher [id number] at 01/23/2017 2:30 PM CDT documented in this encounter Plan of Treatment Scheduled Procedures Name Priority Associated Diagnoses Date/Time COLONOSCOPY Diarrhea documented as of this encounter Visit Diagnoses Not on filedocumented in this encounter
--- OUTSIDE RECORDS SUMMARY | 2022-07-03 10:43 | XMS_ITS | Encounter Summary ---
:1985 Author Organization [facility] Address [address] [place] [address] Care Team Providers Name Role Phone Unavailable Primary Care Provider Unavailable Encounter Details Date Type Department Care Team Description 08/28/2011 Hospital Encounter HX NO MAPPING Nelson Bernal M.D. [address] [place] [phone] (Wo rk) Social History Tobacco [...] How often do you attend restorationism or confucianism More than 4 time s [...]
--- OUTSIDE RECORDS SUMMARY | 2022-07-03 10:43 | XMS_ITS | Encounter Summary ---
:1985 Author Organization [facility] Address [address] [place] [address] Care Team Providers Name Role Phone Unavailable Primary Care Provider Unavailable Encounter Details Date Type Department Care Team Description 09/29/2010 Hospital Encounter [facility] Yamel Koch M.D. [address] [place] [address] (Wo rk) Social History Tobacco [...] How often do you attend restoration or oriental orthodox More than 4 time [...] Giang M.D. - 09/29/2010 9:00 AM CST [id number] Chief Complaint: Chief Complaint Patient presents with [...] Rating was 13, which is improved. Source: [facility] RWMCHXTRANSXRTFSYS Document Id: [id number] documented in this encounter Plan of Treatment Scheduled Procedures Name Priority Associated Diagnoses Date/Time COLONOSCOPY Diarrhea documented as of this encounter Visit Diagnoses Not on filedocumented in this encounter
--- OUTSIDE RECORDS SUMMARY | 2022-07-03 10:43 | XMS_ITS | Encounter Summary ---
:1985 Author Organization [facility] Address [address] [place] [address] Care Team Providers Name Role Phone Unavailable [...] How often do you attend anabaptism or moravian More than 4 time s [...]
--- OUTSIDE RECORDS SUMMARY | 2022-07-03 10:43 | XMS_ITS | Encounter Summary ---
:1985 Author Organization [facility] Address [address] [place] [address] Care Team Providers Name Role Phone Unavailable [...] How often do you attend restoration or methodist More than 4 time s [...] Provider Ser - 02/17/2011 12:00 AM CDT [id number] LETTER Carol Juarez [address] [address] [facility] [id number] [facility] February 17, 2011 Dear Carol: Our records [...] please call at your earliest convenience at [phone] or, toll-free at . Thank you, [facility] Source: [facility] Document Id: [id number] documented in this encounter Plan of Treatment Scheduled Procedures Name Priority Associated Diagnoses Date/Time COLONOSCOPY Diarrhea documented as of this encounter Visit Diagnoses Not on filedocumented in this encounter
--- OUTSIDE RECORDS SUMMARY | 2022-07-03 10:43 | XMS_ITS | Encounter Summary ---
:1985 Author Organization [facility] Address [address] [place] [address] Care Team Providers Name Role Phone Unavailable [...] How often do you attend lutheran or baptism More than 4 time s [...]
--- OUTSIDE RECORDS SUMMARY | 2022-07-03 10:43 | XMS_ITS | Encounter Summary ---
:1985 Author Organization [facility] Address [address] [place] [address] Care Team Providers Name Role Phone Unavailable [...] How often do you attend protestant or anabaptist More than 4 time s [...]
--- OUTSIDE RECORDS SUMMARY | 2022-07-03 10:43 | XMS_ITS | Encounter Summary ---
:1985 Author Organization [facility] Address [address] [place] [address] Care Team Providers Name Role Phone Unavailable [...] How often do you attend lutheran or alevism More than 4 time s [...]
--- OUTSIDE RECORDS SUMMARY | 2022-07-03 10:43 | XMS_ITS | Encounter Summary ---
:1985 Author Organization [facility] Address [address] [place] [address] Care Team Providers Name Role Phone Unavailable Primary Care Provider Unavailable Encounter Details Date Type Department Care Team Description 07/15/2010 [facility] Social History Tobacco Use Types Packs/Day Years [...] How often do you attend lutheran or restoration More than 4 time s [...] Provider Ser - 07/15/2010 12:00 AM CST [id number] TELEPHONE TRIAGE ENCOUNTER FORM Date: 07/15/2010 PCP: Venu Yousif MD, MD Patient Name: Carol Juarez Gender: female : 1985 Age: [age] year old Time: 4:45 PM Phone Numbers: [phone] (home) Pharmacy: [facility] ASSESSMENT Presenting Problem: Depression Subjective/objective: Patient is [...] way prior to scheduled appointment time. Source: [facility] RWHXTRANSXRTFSYS Document Id: [id number] documented in this encounter Plan of Treatment Scheduled Procedures Name Priority Associated Diagnoses Date/Time COLONOSCOPY Diarrhea documented as of this encounter Visit Diagnoses Not on filedocumented in this encounter
--- OUTSIDE RECORDS SUMMARY | 2022-07-03 10:43 | XMS_ITS | Encounter Summary ---
:[address] [facility] Address [address] [place] [address] Care Team Providers Name Role Phone Unavailable [...] How often do you attend religious or mosque More than 4 time s [...]
--- OUTSIDE RECORDS SUMMARY | 2022-07-03 10:43 | XMS_ITS | Encounter Summary ---
:1985 Author Organization [facility] Address [address] [place] [address] Care Team Providers Name Role Phone Unavailable Primary Care Provider Unavailable Encounter Details Date Type Department Care Team Description 08/28/2011 Hospital Encounter HX NO MAPPING Nelson Bernal M.D. [address] [place] [phone] (Wo rk) Social History Tobacco [...] How often do you attend yazidism or denominational More than 4 time s [...]
--- OUTSIDE RECORDS SUMMARY | 2022-07-03 10:43 | XMS_ITS | Encounter Summary ---
:1985 Author Organization [facility] Address [address] [place] [address] Care Team Providers Name Role Phone Unavailable Primary Care Provider Unavailable Encounter Details Date Type Department Care Team Description 01/06/2011 Hospital Encounter [facility] Provider, Historic al Social History Tobacco [...] How often do you attend buddhism or jehovah's witness More than 4 time [...]
--- OUTSIDE RECORDS SUMMARY | 2022-07-03 10:43 | XMS_ITS | Encounter Summary ---
:1985 Author Organization [facility] Address [address] [place] [address] Care Team Providers Name Role Phone Unavailable Primary Care Provider Unavailable Encounter Details Date Type Department Care Team Description 06/11/2010 Hospital Encounter [facility]X [facility] Yamel Koch M.D. [address] [place] [address] [...] How often do you attend hoahaoism or pentecostal More than 4 time s [...] Giang M.D. - 06/11/2010 2:45 PM CDT [id number] Chief Complaint: Chief Complaint Patient presents with [...] squeezing or trying to pop this. Source: [facility] RWHXTRANSXRTFSYS Document Id: [id number] Electronically signed by Conversion, [facility] Automobile Body Repair Supervisor [id number] at 01/24/2017 12:32 PM CDT documented in this encounter Plan of Treatment Scheduled Procedures Name Priority Associated Diagnoses Date/Time COLONOSCOPY Diarrhea documented as of this encounter Visit Diagnoses Not on filedocumented in this encounter
--- OUTSIDE RECORDS SUMMARY | 2022-07-03 10:43 | XMS_ITS | Encounter Summary ---
:1985 Author Organization [facility] Address [address] [place] [address] Care Team Providers Name Role Phone Unavailable [...] How often do you attend scientology or episcopal More than 4 time s [...]
--- OUTSIDE RECORDS SUMMARY | 2022-07-03 10:43 | XMS_ITS | Encounter Summary ---
:[address] [facility] Address [address] [place] [address] Care Team Providers Name Role Phone Unavailable [...] How often do you attend mormon or adventist More than 4 time s [...]
--- OUTSIDE RECORDS SUMMARY | 2022-07-03 10:43 | XMS_ITS | Encounter Summary ---
:1985 Author Organization [facility] Address [address] [place] [address] Care Team Providers Name Role Phone Unavailable Primary Care Provider Unavailable Encounter Details Date Type Department Care Team Description 01/06/2011 Hospital Encounter [facility] Yamel Koch M.D. [address] [place] [address] (Wo rk) Social History Tobacco [...] How often do you attend mandaen or buddhist More than 4 time s [...] Giang M.D. - 01/06/2011 10:45 AM CDT [id number] Chief Complaint Patient presents with Headache talk [...] future for headaches, if not improved. [facility]: [facility] Document Id: [id number] Electronically signed by Roland, [facility] Rounding And Backing Machine Operator [id number] at 01/24/2017 6:23 AM CDT documented in this encounter Plan of Treatment Scheduled Procedures Name Priority Associated Diagnoses Date/Time COLONOSCOPY Diarrhea documented as of this encounter Visit Diagnoses Not on filedocumented in this encounter
--- OUTSIDE RECORDS SUMMARY | 2022-07-03 10:43 | XMS_ITS | Encounter Summary ---
:1985 Author Organization [facility] Address [address] [place] [address] Care Team Providers Name Role Phone Unavailable [...] How often do you attend methodist or advent More than 4 time s [...]
--- OUTSIDE RECORDS SUMMARY | 2022-07-03 10:43 | XMS_ITS | Encounter Summary ---
:1985 Author Organization [facility] Address [address] [place] [address] Care Team Providers Name Role Phone Unavailable [...] Historical Provider Ser - 07/16/2010 12:00 AM WIRELESS TELEGRAPHER [id number] LETTER Carol Juarez [address] [address] [facility] [address] [facility] July 16, 2010 Dear Carol: Thank you for requesting an appointment for services at the [facility] Behavioral Health Department. Initial 45 minute appointments have been scheduled in our Psychology Department with: Kaye Magallanes, Ph.D., L.P. Sunday, August 01, 2010 at 11:00 AM Wednesday, August 29, 2010 at 10:00 AM Wednesday, September 12, 2010 at 11:00 AM located on the 3rd floor: [facility] at [address] [place] [address]. If the above scheduled appointment is not [...] be a pleasant and worthwhile one. Sincerely, [facility] Contact Information July 16, 2010 Intake done by: Humaira EMR#: [id number] NAME: Carol Juarez SSN: [id number] : 1985 Age: [age] year old Sex: female Spouse/ S.O.: - Parent/Guardian: - ADDRESS: [address] [place] [address] [place] Phone Numbers: [phone] (home) Phone Contact: Home: Yes Messages: Yes Written Contact: Home: Yes Work: No Payor: [facility] Plan: [facility] Product Type: Indemnity Court Ordered/Litigation No Referral Information Caller: self Referred by: elie Location: Referred to: monty Prior Contact with [facility]? No Date: - Doctor seen: NA Reason: Depression relationship issues Length and/or Severity of Problem: ongoing Past or Current Mental Health Provider: - Primary Care Physician: Venu Yousif MD, MD Medication: See md list Dosage: - Appointments Appt. With: Kaye Magallanse, Ph.D., L.P. Wednesday, August 01, 2010 at 11:00 AM Wednesday, August 29, 2010 at 10:00 AM Wednesday, September 12, 2010 at 11:00 AM Intake Packet Sent on Wait List No Source: [facility] RWHXTRANSXRTFSYS Document Id: [id number] documented in this encounter Plan of Treatment Scheduled Procedures Name Priority Associated Diagnoses Date/Time COLONOSCOPY Diarrhea documented as of this encounter Visit Diagnoses Not on filedocumented in this encounter
--- OUTSIDE RECORDS SUMMARY | 2022-07-03 10:43 | XMS_ITS | Encounter Summary ---
:1985 Author Organization [facility] Address [address] [place] [address] Care Team Providers Name Role Phone Unavailable [...] How often do you attend hoahaoism or yarsani More than 4 time s [...]
--- OUTSIDE RECORDS SUMMARY | 2022-07-03 10:43 | XMS_ITS | Encounter Summary ---
:1985 Author Organization [facility] Address [address] [place] [address] Care Team Providers Name Role Phone Unavailable Primary Care Provider Unavailable Encounter Details Date Type Department Care Team Description 06/27/2010 Hospital Encounter [facility] Moon Figueredo, P.A.-C. [address] [place] [address] (Wo rk) Social History Tobacco Use Types [...] Ellsworth P.A.-C. 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 Takes OTC Tylenol [...] 1 Years of Education: 13 Occupational History [facility] [employer] Social History Main Topics Tobacco Use: [...] non-tender, No masses, organomegaly, Bowel sounds normoactive Laundry Sorter: external genitalia normal, vaginal mucosa normal, cervix [...] and is in agreement with plan. Source: [facility] RWHXTRANSXRTFSYS Document Id: [id number] Electronically signed by Conversion, [facility] Cook Fishing Vessel [id number] at 01/24/2017 1:07 PM CDT documented in this encounter Miscellaneous Notes Miscellaneous - Conversion, Historical Provider Ser - 06/27/2010 10:00 AM CDT [id number] Carol Pearsonford [address] [place] [address] [facility] July 01, 2010 Dear Carol Juarez, I am happy to inform you that your recent cervical cancer screening test (PAP smear) was normal. Preventative screening such as this helps insure your health for years to come. Congratulations for taking care of yourself! Please contact my office if you have any further questions. [phone]. Sincerely, CASSIE Mcintosh OBSTETRICS/GYNECOLOGY [facility] Source: [facility] Document Id: [id number] Miscellaneous - Gloria Ellsworth P.A.-C. - 06/27/2010 10:00 AM CDT [id number] [facility] WIRELESS ARCHITECT [address] [place] [address] July 03, 2010 Carol Juarez [address] [place] [address] [facility] Dear Ms. Juarez., This letter is sent to inform you of recent laboratory test results and to provide you with personalrecords of health information. Your Pap and chlamydia tests were negative. Thank you for allowing me to participate in your care. If you have any further questions or problems, please contact me at [phone]. Sincerely, Gloria Ellsworth PA-C Source: [facility] Document Id: [id number] Electronically signed by Conversion, [facility] Cook Fishing Vessel [id number] at 01/24/2017 1:07 PM CDT documented in this encounter Plan of Treatment Scheduled Procedures Name Priority Associated Diagnoses Date/Time COLONOSCOPY Diarrhea documented as of this encounter Visit Diagnoses Not on filedocumented in this encounter
--- OUTSIDE RECORDS SUMMARY | 2022-07-03 10:43 | XMS_ITS | Encounter Summary ---
:1985 Author Organization [facility] Address [address] [place] [address] Care Team Providers Name Role Phone Unavailable Primary Care Provider Unavailable Encounter Details Date Type Department Care Team Description 07/09/2011 Hospital Encounter [facility] Yamel Koch M.D. [address] [place] [address] (Wo rk) Social History Tobacco [...] How often do you attend gnosticism or protestant More than 4 time s [...] Historical Provider Ser - 07/09/2011 12:00 AM CVICU NURSE [id number] Carol Juarez [address] [place] [address] [facility] July 09, 2011 Dear Carol Juarez, APPOINTMENT REMINDER: Our record indicates that it is time for you to be seen for an office visit with Venu Yousif M.D. You may call our office at [phone] to schedule an appointment for your six (6) month follow-up visit. Please disregard this notice if you have already made an appointment. Sincerely, [facility] Source: [facility] Document Id: [id number] documented in this encounter Plan of Treatment Scheduled Procedures Name Priority Associated Diagnoses Date/Time COLONOSCOPY Diarrhea documented as of this encounter Visit Diagnoses Not on filedocumented in this encounter
--- OUTSIDE RECORDS SUMMARY | 2022-07-03 10:43 | XMS_ITS | Encounter Summary ---
:1985 Author Organization [facility] Address [address] [place] [address] Care Team Providers Name Role Phone Unavailable [...] How often do you attend mosque or restorationist More than 4 time s [...] Gregory Grewal - 10/13/2010 5:00 PM CST [id number] Adult female smoker had a fever yesterday [...] or shortness of breath. HENOK Garcia/jayson [facility] RWHXTR[facility] Document Id: [id number] documented in this encounter Plan of Treatment Scheduled Procedures Name Priority Associated Diagnoses Date/Time COLONOSCOPY Diarrhea documented as of this encounter Visit Diagnoses Not on filedocumented in this encounter
--- OUTSIDE RECORDS SUMMARY | 2022-07-03 10:43 | XMS_ITS | Encounter Summary ---
:1985 Author Organization [facility] Address [address] [place] [address] Care Team Providers Name Role Phone Unavailable [...] How often do you attend mormon or mormon More than 4 time s [...] Historical Provider Ser - 08/17/2011 12:00 AM HELMET HAT PUNCHER [id number] LETTER Carol Juarez [facility] [address] [facility] [address] [facility] August 17, 2011 Dear Carol: Our records indicate that you recently cancelled your appointment with Kaye Magallanes, Ph.D., L.P.. Thank you for notifying our office. Your next scheduled appointment is: August at 3:00 PM If you are unable to keep this appointment, please call the [facility] Department at your earliest convenience at or toll-free at to or cancel or reschedule. We look forward to hearing from you. Thank you, [facility] Source: [facility] Document Id: [id number] documented in this encounter Plan of Treatment Scheduled Procedures Name Priority Associated Diagnoses Date/Time COLONOSCOPY Diarrhea documented as of this encounter Visit Diagnoses Not on filedocumented in this encounter
--- OUTSIDE RECORDS SUMMARY | 2022-07-03 10:43 | XMS_ITS | Encounter Summary ---
:1985 Author Organization [facility] Address [address] [place] [address] Care Team Providers Name Role Phone Unavailable Primary Care Provider Unavailable Encounter Details Date Type Department Care Team Description 08/28/2010 Hospital Encounter [facility] Yamel Koch M.D. [address] [place] [address] (Wo rk) Social History Tobacco [...] How often do you attend protestant or oriental orthodox More than 4 time [...] Giang M.D. - 08/28/2010 8:30 AM CST [id number] Chief Complaint: Chief Complaint Patient presents with [...] the 08/28/10 encounter (Office Visit) with KOTA GIANG.: citalopram (CELEXA) 20 MG tablet Take 1 [...] Wellbutrin. follow up in 1 month. Source: [facility] RWMCHXTRANSXRTFSYS Document Id: [id number] Electronically signed by Conversion, [facility] Computer Science Intern [id number] at 01/24/2017 12:51 AM CDT documented in this encounter Plan of Treatment Scheduled Procedures Name Priority Associated Diagnoses Date/Time COLONOSCOPY Diarrhea documented as of this encounter Visit Diagnoses Not on filedocumented in this encounter
--- OUTSIDE RECORDS SUMMARY | 2022-07-03 10:43 | XMS_ITS | Encounter Summary ---
:1985 Author Organization [facility] Address [address] [place] [address] Care Team Providers Name Role Phone Unavailable [...] How often do you attend faith or christian More than 4 time s [...]
--- OUTSIDE RECORDS SUMMARY | 2022-07-03 10:43 | XMS_ITS | Encounter Summary ---
:1985 Author Organization [facility] Address [address] [place] [address] Care Team Providers Name Role Phone Unavailable [...] How often do you attend gnosticism or caodaism More than 4 time s [...] Provider Ser - 11/13/2010 12:00 AM CDT [id number] MARIA T Juarez [address] [address] [facility] [address] [facility] November 13, 2010 Dear Carol: Our records indicate that you recently cancelled your appointment with Kaye Magallanes, Ph.D., L.P.. Thank you for notifying our office. Your next scheduled appointment is: Sunday, November 28, 2010 at 11:00 AM If you are unable to keep this appointment, please call the [facility] Department at your earliest convenience at or toll-free at to or cancel or reschedule. We look forward to hearing from you. Thank you, [facility] Source: [facility] Document Id: [id number] documented in this encounter Plan of Treatment Scheduled Procedures Name Priority Associated Diagnoses Date/Time COLONOSCOPY Diarrhea documented as of this encounter Visit Diagnoses Not on filedocumented in this encounter
--- OUTSIDE RECORDS SUMMARY | 2022-07-03 10:44 | XMS_ITS | Encounter Summary ---
:1985 Author Organization [facility] Address [address] [place] [address] Care Team Providers Name Role Phone Unavailable Primary Care Provider Unavailable Encounter Details Date Type Department Care Team Description 02/06/2008 Hospital Encounter [facility] Marisol Galaviz, APR N, C.N.P. [address] [place], [place] [address] (Wo rk) Social History [...] How often do you attend islam or confucianist More than 4 time s [...] C.NLebron., R.N. - 02/06/2008 1:00 PM CDT [id number] Carol is here for a 6-week checkup. [...] and symptoms of infection were discussed. Source: [facility] RWHXTRANSXRTFSYS Document Id: [id number] Electronically signed by Conversion, [facility] Javascript Application Developer [id number] at 01/25/2017 2:51 AM CDT documented in this encounter Miscellaneous Notes Miscellaneous - Marisol Irving C.N.P., R.N. - 02/06/2008 1:00 PM CDT [id number] Date: 02/06/2008 Name: Carol Juarez Birthdate: 1985 The patient was seen at: [facility] today Restrictions if any: Able to work unrestricted as of today. Marisol Irving RN, LENS MOLDER OBSTETRICS/GYNECOLOGY [facility] Source: [facility] Document Id: [id number] Electronically signed by Conversion, [facility] Javascript Application Developer [id number] at 01/25/2017 2:51 AM CDT documented in this encounter Plan of Treatment Scheduled Procedures Name Priority Associated Diagnoses Date/Time COLONOSCOPY Diarrhea documented as of this encounter Visit Diagnoses Not on filedocumented in this encounter
--- OUTSIDE RECORDS SUMMARY | 2022-07-03 10:44 | XMS_ITS | Encounter Summary ---
:1985 Author Organization [facility] Address [address] [place] [address] Care Team Providers Name Role Phone Unavailable Primary Care Provider Unavailable Encounter Details Date Type Department Care Team Description 02/22/2009 Hospital Encounter HX NO MAPPING Rizwan Dean M.D. [address] [place], [place] [address] (Wo rk) Social History [...] How often do you attend taoism or samaritan More than 4 time s [...]
--- OUTSIDE RECORDS SUMMARY | 2022-07-03 10:44 | XMS_ITS | Encounter Summary ---
:1985 Author Organization [facility] Address [address] [place] [address] Care Team Providers Name Role Phone Unavailable Primary Care Provider Unavailable Encounter Details Date Type Department Care Team Description 02/17/2010 Hospital Encounter HX NO MAPPING Berny Garcia M.D. [address] [place], [place] [address] (Wo rk) Social History [...] How often do you attend evangelical or caodaism More than 4 time s [...]
--- OUTSIDE RECORDS SUMMARY | 2022-07-03 10:44 | XMS_ITS | Encounter Summary ---
:1985 Author Organization [facility] Address [address] [place] [address] Care Team Providers Name Role Phone Unavailable Primary Care Provider Unavailable Encounter Details Date Type Department Care Team Description 02/17/2010 Hospital Encounter HX NO MAPPING Berny Garcia M.D. [address] [place], [place] [address] (Wo rk) Social [...] How often do you attend evangelical or sikh More than 4 time s [...]
--- OUTSIDE RECORDS SUMMARY | 2022-07-03 10:44 | XMS_ITS | Encounter Summary ---
:1985 Author Organization [facility] Address [address] [place] [address] Care Team Providers Name Role Phone Unavailable [...] How often do you attend evangelical or anabaptist More than 4 time s [...] Historical Provider Ser - 08/23/2008 12:00 AM SUPERVISOR RIDES [id number] 07/02/2009 - Date of R/C request: 06-12-09 Records sent to: Care Delivery Management [facility] Bambi Oh RN - [address] [address] [place] [address] [facility] Description of Disclosure: 12-27-07 to 12-29-07. 12-30-07 to 12-30-07, 01-02-08 to 01-06-08 Purpose of Disclosure: insurance for payment audit Authorization: NO Source: [facility] Document Id: [id number] documented in this encounter Plan of Treatment Scheduled Procedures Name Priority Associated Diagnoses Date/Time COLONOSCOPY Diarrhea documented as of this encounter Visit Diagnoses Not on filedocumented in this encounter
--- OUTSIDE RECORDS SUMMARY | 2022-07-03 10:44 | XMS_ITS | Encounter Summary ---
:1985 Author Organization [facility] Address [address] [place] [address] Care Team Providers Name Role Phone Unavailable [...] How often do you attend hinduism or yazidism More than 4 time s per year [...]
--- OUTSIDE RECORDS SUMMARY | 2022-07-03 10:44 | XMS_ITS | Encounter Summary ---
:1985 Author Organization [facility] Address [address] [place] [address] Care Team Providers Name Role Phone Unavailable [...] How often do you attend worship or church More than 4 time s [...] Kinney M.D. - 01/02/2008 10:25 AM CDT [id number] [facility] [address] [facility], [address] Name: Carol Juarez Birthdate: 1985 Hospital Medical [...] [address] Mariaelena Kinney 01/06/2008 Source: [facility] RWMCHXTRANSXRTFSYS Document Id: [id number] Electronically signed by [facility], [facility] Pourer Bull Ladle [id number] at 01/25/2017 4:45 AM CDT Miscellaneous - Conversion, Historical Provider Ser - 01/02/2008 10:25 AM CDT [id number] [address] [place] [address] Name: Carol Juarez Birthdate: 1985 SSN: [id number] [facility] Allergy: No known allergies Discharge Date: 01/06/2008 Obstetrical Discharge Instructions Information given to patient: [facility] Immunization - Yes Notice of Phone Call [...] documentation info: (time, how & by). Source: [facility] RWHXTRANSXRTFSYS Document Id: [id number] documented in this encounter Plan of Treatment Scheduled Procedures Name Priority Associated Diagnoses Date/Time COLONOSCOPY Diarrhea documented as of this encounter Visit Diagnoses Not on filedocumented in this encounter
--- OUTSIDE RECORDS SUMMARY | 2022-07-03 10:44 | XMS_ITS | Encounter Summary ---
:1985 Author Organization [facility] Address [address] [place] [address] Care Team Providers Name Role Phone Unavailable Primary Care Provider Unavailable Encounter Details Date Type Department Care Team Description 05/19/2009 Hospital Encounter [facility] INPT/OBSRV Chon Babin M.D. [address] [place], [place] [id number] (Wo rk) Social History Tobacco Use Types [...] How often do you attend catholic or hinduism More than 4 time s [...]
--- OUTSIDE RECORDS SUMMARY | 2022-07-03 10:44 | XMS_ITS | Encounter Summary ---
:1985 Author Organization [facility] Address [address] [place] [address] Care Team Providers Name Role Phone Unavailable Primary Care Provider Unavailable Encounter Details Date Type Department Care Team Description 06/02/2010 Hospital Encounter [facility] Ysabel Reyes R.NBrittaney [address] [address] Social History Tobacco Use Types [...] How often do you attend rastafarian or confucianist More than 4 time s [...] Reyes R.N. - 06/02/2010 12:00 AM CDT [id number] Situation/What is the patients concern/need: N/v diarrhea, [...] Request: Apt with provider for headache. Source: [facility] Document Id: [id number] Electronically signed by Conversion, [facility] Sex Crimes Detective [id number] at 01/24/2017 12:32 PM CDT documented in this encounter Plan of Treatment Scheduled Procedures Name Priority Associated Diagnoses Date/Time COLONOSCOPY Diarrhea documented as of this encounter Visit Diagnoses Not on filedocumented in this encounter
--- OUTSIDE RECORDS SUMMARY | 2022-07-03 10:44 | XMS_ITS | Encounter Summary ---
:1985 Author Organization [facility] Address [address] [place] [address] Care Team Providers Name Role Phone Unavailable [...]
--- OUTSIDE RECORDS SUMMARY | 2022-07-03 10:44 | XMS_ITS | Encounter Summary ---
:1985 Author Organization [facility] Address [address] [place] [address] Care Team Providers Name Role Phone Unavailable [...] How often do you attend hinduism or christian More than 4 time s [...] Provider Ser - 2007 10:20 AM CDT [id number] Source: [facility] Document Id: [id number] Miscellaneous - Conversion, Historical Provider Ser - 2007 10:20 AM CDT [id number] [facility] [address] [facility], [address] Name: Carol Juarez Birthdate: 1985 SSN: [id number] [facility] Allergy: No known allergies Discharge Date: [...] as above Diet: regular Appointment(s): To call [phone] by 5 pm to verify that you [...] documentation info: (time, how & by). Source: [facility] RWHXTRANSXRTFSYS Document Id: [id number] Miscellaneous - Conversion, Historical Provider Ser - 2007 10:20 AM CDT [id number] [address] [place] [address] Name: Carol Juarez Birthdate: 1985 SSN: [id number] [facility] Allergy: No known allergies Discharge Date: 2007 Obstetrical Discharge Instructions Information given to patient: [facility] Immunization - {YES-NO Default Yes:4444::Yes} Notice of Phone Call / Classes - {YES-NO Default Yes:4444::Yes} Parenting Newsletter - {YES-NO Default Yes:4444::Yes} Public Health Referral - {YES-NO Default Yes:4444::Yes} Social Work Services Referral - {YES-NO Default Yes:4444::Yes} -Information for Medical Records - {YES-NO Default Yes:4444::Yes} Discharged to: Home. Activities: {ACTIVITY HOSPITAL:721099::-Up as tolerated} Medications: {:PLEASE INCLUDE THE TIME [...] documented {:time}. Nursing Instructions: { OB HOSP LA NURSE INSTRUCT:251435::Nothing per Vagina for 6 weeks, As instructed by your provider.} Diet: { OB [facility] DIET:739249} Appointment(s): Mother's Appointment: To see . Baby's [...] documentation info: (time, how & by). Source: [facility] RWHXTRANSXRTFSYS Document Id: [id number] documented in this encounter Plan of Treatment Scheduled Procedures Name Priority Associated Diagnoses Date/Time COLONOSCOPY Diarrhea documented as of this encounter Visit Diagnoses Not on filedocumented in this encounter
--- OUTSIDE RECORDS SUMMARY | 2022-07-03 10:44 | XMS_ITS | Encounter Summary ---
:1985 Author Organization [facility] Address [address] [place] [address] Care Team Providers Name Role Phone Unavailable Primary Care Provider Unavailable Encounter Details Date Type Department Care Team Description 02/22/2009 Hospital Encounter HX NO MAPPING Rizwan Dean M.D. [address] [place], [place] [phone] (Wo rk) Social History [...] How often do you attend moravian or druze More than 4 time s [...]
--- OUTSIDE RECORDS SUMMARY | 2022-07-03 10:44 | XMS_ITS | Encounter Summary ---
:1985 Author Organization [facility] Address [address] [place] [address] Care Team Providers Name Role Phone Unavailable [...] How often do you attend judaism or denominational More than 4 time s [...]
--- OUTSIDE RECORDS SUMMARY | 2022-07-03 10:44 | XMS_ITS | Encounter Summary ---
:1985 Author Organization [facility] Address [address] [place] [address] Care Team Providers Name Role Phone Unavailable Primary Care Provider Unavailable Encounter Details Date Type Department Care Team Description 02/04/2010 Hospital Encounter [facility] Yamel Koch M.D. [address] [place] [address] (Wo rk) Social History Tobacco [...] How often do you attend rastafarian or voodoo More than 4 time s [...] Giang M.D. - 02/04/2010 9:00 AM CDT [id number] Chief Complaint Patient presents with Abdominal Pain [...] well. Wet prep reviewed and normal. Source: [facility] RWHXTRANSXRTFSYS Document Id: [id number] Electronically signed by Conversion, [facility] Restaurant Front Manager [id number] at 01/24/2017 11:08 AM CDT documented in this encounter Plan of Treatment Scheduled Procedures Name Priority Associated Diagnoses Date/Time COLONOSCOPY Diarrhea documented as of this encounter Visit Diagnoses Not on filedocumented in this encounter
--- OUTSIDE RECORDS SUMMARY | 2022-07-03 10:44 | XMS_ITS | Encounter Summary ---
:1985 Author Organization [facility] Address [address] [place] [address] Care Team Providers Name Role Phone Unavailable Primary Care Provider Unavailable Encounter Details Date Type Department Care Team Description 03/27/2009 Hospital Encounter [facility]X [facility] Provider, [facility] Social History Tobacco Use Types Packs/Day Years [...] How often do you attend presybeterian or mormonism More than 4 time s [...]
--- OUTSIDE RECORDS SUMMARY | 2022-07-03 10:44 | XMS_ITS | Encounter Summary ---
:1985 Author Organization [facility] Address [address] [place] [address] Care Team Providers Name Role Phone Unavailable Primary Care Provider Unavailable Encounter Details Date Type Department Care Team Description 02/04/2010 [facility] Provider, Histori huma Social History Tobacco [...] How often do you attend mosque or muslim More than 4 time s [...] Yousif M.D. - 02/04/2010 11:00 AM CDT [id number] Quick Note: Nursing: please call patient to inform her the wet prep and ultrasound were both normal. Thanks. Source: [facility] RWMCHXTRANSXSYS Document Id: [id number] Electronically signed by Conversion, [facility] Soaking Tank Worker [id number] at 01/24/2017 11:08 AM CDT documented in this encounter Plan of Treatment Scheduled Procedures Name Priority Associated Diagnoses Date/Time COLONOSCOPY Diarrhea documented as of this encounter Visit Diagnoses Not on filedocumented in this encounter
--- OUTSIDE RECORDS SUMMARY | 2022-07-03 10:44 | XMS_ITS | Encounter Summary ---
:1985 Author Organization [facility] Address [address] [place] [address] Care Team Providers Name Role Phone Unavailable Primary Care Provider Unavailable Encounter Details Date Type Department Care Team Description 06/02/2010 Hospital Encounter [facility] Yamel Koch M.D. [address] [place] [address] (Wo rk) Social History [...] How often do you attend mandaeism or restoration More than 4 time s [...] Giang M.D. - 06/02/2010 10:30 AM CDT [id number] Chief Complaint Patient presents with Headache episodes [...] nausea. Imitrex for headache, suspect migraine. Source[facility] Document Id: [id number] Electronically signed by Conversion, [facility] Addiction Medicine Physician [id number] at 01/24/2017 12:32 PM CDT documented in this encounter Miscellaneous Notes Miscellaneous - Keith Giang M.D. - 06/02/2010 10:30 AM CDT [id number] [facility] [address] [facility], [address] 06/02/2010 Carol Juarez TO WHOM IT MAY CONCERN: Carol Juarez was seen on 06/02/2010. Please excuse her from 06/02/2010 until symptoms improve due to illness. Cordially, Keith Giang M.D. FAMILY MEDICINE [facility] Source: [facility] Document Id: [id number] Electronically signed by Conversion, [facility] Addiction Medicine Physician [id number] at 01/24/2017 12:32 PM CDT documented in this encounter Plan of Treatment Scheduled Procedures Name Priority Associated Diagnoses Date/Time COLONOSCOPY Diarrhea documented as of this encounter Visit Diagnoses Not on filedocumented in this encounter
--- OUTSIDE RECORDS SUMMARY | 2022-07-03 10:44 | XMS_ITS | Encounter Summary ---
:1985 Author Organization [facility] Address [address] [place] [address] Care Team Providers Name Role Phone Unavailable Primary Care Provider Unavailable Encounter Details Date Type Department Care Team Description 01/20/2008 Hospital Encounter [facility] Adonis Weir M.D. [address] [place] [phone] (Wo rk) Social History Tobacco [...] often do you attend latter day or mormon More than 4 time s [...] Hooks M.D. - 01/20/2008 10:45 AM CDT [id number] Carol is sent from Peds (there with [...] epigastric pain resolving Plan: Amylase, CBC [facility] Document Id: [id number] documented in this encounter Plan of Treatment Scheduled Procedures Name Priority Associated Diagnoses Date/Time COLONOSCOPY Diarrhea documented as of this encounter Visit Diagnoses Not on filedocumented in this encounter
--- OUTSIDE RECORDS SUMMARY | 2022-07-03 10:44 | XMS_ITS | Encounter Summary ---
:1985 Author Organization [facility] Address [address] [place] [address] Care Team Providers Name Role Phone Unavailable [...] How often do you attend bahai or restorationism More than 4 time s [...] Provider Ser - 12/27/2007 7:10 PM CDT [id number] Source: [facility] Document Id: [id number] documented in this encounter Plan of Treatment Scheduled Procedures Name Priority Associated Diagnoses Date/Time COLONOSCOPY Diarrhea documented as of this encounter Visit Diagnoses Not on filedocumented in this encounter
--- OUTSIDE RECORDS SUMMARY | 2022-07-03 10:44 | XMS_ITS | Encounter Summary ---
:1985 Author Organization [facility] Address [address] [place] [address] Care Team Providers Name Role Phone Unavailable Primary Care Provider Unavailable Encounter Details Date Type Department Care Team Description 08/06/2009 Hospital Encounter [facility] INPT/OBSRV Shari Diaz M.D. [address] [place], [place] [address] (Wo rk) Social History [...]
--- OUTSIDE RECORDS SUMMARY | 2022-07-03 10:44 | XMS_ITS | Encounter Summary ---
:1985 Author Organization [facility] Address [address] [place] [address] Care Team Providers Name Role Phone Unavailable Primary Care Provider Unavailable Encounter Details Date Type Department Care Team Description 10/30/2008 Hospital Encounter [facility] Casi Vo M.D. [address] [place], [place] [phone] (Wo rk) Social History [...] How often do you attend restoration or tenriism More than 4 time s [...] Grove M.D. - 10/30/2008 2:30 PM CDT [id number] Carol is a 22 year old here for her annual exam. 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 Ota HX: no abnormal paps. Her menses are [...] GERD, not daily BREAST: Negative : Negative FLOWER MAKER: Negative CV: Negative PULMONARY: Negative MUSCULOSKELETAL: Negative PSYCH: Negative SOCIAL HISTORY: History Social History Marital Status: Single Spouse Name: N/A Number of Children: N/A Years of Education: 13 Occupational History [employer] Social History Main Topics Tobacco Use: Yes [...] scattered benign nevi ASSESSMENT AND PLAN: Annual Ota exam. Declines Chl screen (monogamous) Health maintenance includes: pap smear done today and smoking cessation. Source: [facility] Document Id: [id number] documented in this encounter Miscellaneous Notes Miscellaneous - Conversion, Historical Provider Ser - 10/30/2008 2:30 PM CDT [id number] Carol Juarez [address] [place] [phone] November 01, 2008 Dear Carol Juarez, I am happy to inform you that your recent cervical cancer screening test (PAP smear) was normal. Preventative screening such as this helps insure your health for years to come. Congratulations for taking care of yourself! Please contact my office if you have any further questions. [phone]. Sincerely, Ann Grove M.D. OBSTETRICS/GYNECOLOGY [facility] Source: [facility] Document Id: [id number] documented in this encounter Plan of Treatment Scheduled Procedures Name Priority Associated Diagnoses Date/Time COLONOSCOPY Diarrhea documented as of this encounter Visit Diagnoses Not on filedocumented in this encounter
--- OUTSIDE RECORDS SUMMARY | 2022-07-03 10:44 | XMS_ITS | Encounter Summary ---
:1985 Author Organization [facility] Address [address] [place] [address] Care Team Providers Name Role Phone Unavailable Primary Care Provider Unavailable Encounter Details Date Type Department Care Team Description 03/24/2010 Hospital Encounter [facility] Yamel Koch M.D. [address] [place] [address] (Wo rk) Social History Tobacco [...] How often do you attend pentecostal or sikh More than 4 time s [...] Giang M.D. - 03/24/2010 11:00 AM CDT [id number] Chief Complaint: Chief Complaint Patient presents with [...] or return if worsening or spreading. Source: [facility] RWMCHXTRANSXRTFSYS Document Id: [id number] documented in this encounter Miscellaneous Notes Miscellaneous - Venu Giang M.D. - 03/24/2010 11:00 AM CDT [id number] [facility] [address] [facility], [address] 03/24/2010 Carol Juarez TO WHOM IT MAY CONCERN: Carol Juarez was seen on 03/24/2010. Please excuse her 03/24/2010 due to a medical condition. She may return 03/25/2010 without restrictions. Cordially, Venu Giang M.D. FAMILY MEDICINE [facility] Source: [facility] RWHXTRANSXRTFSYS Document Id: [id number] documented in this encounter Plan of Treatment Scheduled Procedures Name Priority Associated Diagnoses Date/Time COLONOSCOPY Diarrhea documented as of this encounter Visit Diagnoses Not on filedocumented in this encounter
--- OUTSIDE RECORDS SUMMARY | 2022-07-03 10:44 | XMS_ITS | Encounter Summary ---
:1985 Author Organization [facility] Address [address] [place] [address] Care Team Providers Name Role Phone Unavailable [...] How often do you attend druze or adventism More than 4 time s [...]
--- OUTSIDE RECORDS SUMMARY | 2022-07-03 10:44 | XMS_ITS | Encounter Summary ---
:1985 Author Organization [facility] Address [address] [place] [address] Care Team Providers Name Role Phone Unavailable [...] How often do you attend restorationism or zoroastrianism More than 4 time s [...] Provider Ser - 12/30/2007 7:10 AM CDT [id number] [facility]: [facility] Document Id: [id number] Miscellaneous - Conversion, Historical Provider Ser - 12/30/2007 7:10 AM CDT [id number] December 30, 2007 Carol Dowell [place] [id number] OB Admit History & Physical 2007 Carol [...] N/A Years of Education: 13 Occupational History [employer] Social History Main Topics Tobacco Use: [...] Negative GI: Negative BREAST: Negative : Negative 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 Cephalic presentation confirmed. A/P: 21 y/o @ 40w2 (10) with: 1. IOL: Will proceed with 2nd attempt at induction with pitocin. 2. Gestational HTN: No e/o pree. Bp OK today. Will follow 3. GBS negative 4. status reassuring. Rylee Grijalva MD Dept of VISUAL ARTIST Source: [facility] Document Id: [id number] Miscellaneous - Conversion, Historical Provider Ser - 12/30/2007 7:10 AM CDT [id number] [facility] [address] [facility], [address] Name: Carol Juarez Birthdate: 1985 [facility] Admission Date: 12/30/2007 Allergy: No [...] minutes. Dr. Rylee Grijalva MD 12/30/2007 Source: [facility] RWHXTRANSXRTFSYS Document Id: [id number] Miscellaneous - Conversion, Historical Provider Ser - 12/30/2007 7:10 AM CDT [id number] [facility] [address] [facility], [address] Name: Carol Juarez Birthdate: 1985 SSN: [id number] [facility] Allergy: No known allergies Discharge Date: [...] water breaks Diet: regular Appointment(s): Please call [phone] on Wednesday for an appt. Make appt for Wednesday01/02/08 forOB check and NST. I have all of my belongings . I understand my discharge instructions. My medications were reviewed with me. Patient's Signature: Nurse Discharging this patient signature: RN Signature & Date: Spencre Schuster RN Date: 12/30/2007 Please see paper chart for additional discharge documentation info: (time, how & by). Source: [facility] RWHXTRANSXRTFSYS Document Id: [id number] documented in this encounter Plan of Treatment Scheduled Procedures Name Priority Associated Diagnoses Date/Time COLONOSCOPY Diarrhea documented as of this encounter Visit Diagnoses Not on filedocumented in this encounter
--- OUTSIDE RECORDS SUMMARY | 2022-07-03 10:44 | XMS_ITS | Encounter Summary ---
:1985 Author Organization [facility] Address [address] [place] [address] Care Team Providers Name Role Phone Unavailable Primary Care Provider Unavailable Encounter Details Date Type Department Care Team Description 06/04/2008 Hospital Encounter HX [facility] INPT/OBSRV Neema Nieves M.D. Social History Tobacco [...] or relatives? How often do you attend buddhist or hinduism More than 4 time s per year 07/09/2020 services? Do you belong to any clubs or organizations No 04/19/2019 such as buddhist groups, unions, fraternal or athletic groups, or [...]
--- OUTSIDE RECORDS SUMMARY | 2022-07-03 10:44 | XMS_ITS | Encounter Summary ---
:1985 Author Organization [facility] Address [address] [place] [address] Care Team Providers Name Role Phone Unavailable Primary Care Provider Unavailable Encounter Details Date Type Department Care Team Description 12/29/2007 Hospital Encounter [facility] Casi Vo M.D. [address] [place], [place] [phone] (Wo rk) Social History [...] How often do you attend baptist or yazdanism More than 4 time s [...] Grove M.D. - 12/29/2007 12:00 AM CDT [id number] [facility] [address] [facility], [address] Name: Carol Juarez Birthdate: 1985 [facility] Admission Date: 12/27/2007 Allergy: [...] minutes. Dr. Ann Grove MD 12/29/2007 Source: [facility] RWHXTRANSXRTFSYS Document Id: [id number] Electronically signed by Conversion, [facility] Acoustic Sensor Operator [id number] at 01/25/2017 4:45 AM CDT Miscellaneous - Conversion, Historical Provider Ser - 12/29/2007 12:00 AM CDT [id number] [address], [address] Name: Carol Juarez Birthdate: 1985 SSN: [id number] [facility] Allergy: No known allergies Discharge Date: [...] documentation info: (time, how & by). Source: [facility] RWMCHXTRANSXRTFSYS Document Id: [id number] documented in this encounter Plan of Treatment Scheduled Procedures Name Priority Associated Diagnoses Date/Time COLONOSCOPY Diarrhea documented as of this encounter Visit Diagnoses Not on filedocumented in this encounter
--- OUTSIDE RECORDS SUMMARY | 2022-07-03 10:44 | XMS_ITS | Encounter Summary ---
:1985 Author Organization [facility] Address [address] [place] [address] Care Team Providers Name Role Phone Unavailable Primary Care Provider Unavailable Encounter Details Date Type Department Care Team Description 05/19/2009 Hospital Encounter [facility] INPT/OBSRV Chon Babin M.D. [address] [place], [place] [phone] (Wo rk) Social History Tobacco Use Types [...] How often do you attend yazdanism or anabaptist More than 4 time s [...]
--- OUTSIDE RECORDS SUMMARY | 2022-07-03 10:44 | XMS_ITS | Encounter Summary ---
:1985 Author Organization [facility] Address [address] [place] [address] Care Team Providers Name Role Phone Unavailable Primary Care Provider Unavailable Encounter Details Date Type Department Care Team Description 01/02/2008 Hospital Encounter [facility] Casi Vo M.D. [address] [place], [place] [phone] (Wo rk) Social History [...] How often do you attend quaker or oriental orthodox More than 4 time [...] Grove M.D. - 01/02/2008 9:30 AM CDT [id number] Here for NST/ANA LUISA. Failed IOL last week for PIH. Was on BR all weekend BP normal today. O: ANA LUISA=4.5 A/P Gestational Age: 40w 5d , oligohydramnios. history of evolving PIH but BPs have been normal on BR. Admit. KG Source: [facility] RWHXTRANSXRTFSYS Document Id: [id number] Electronically signed by Conversion, [facility] Conference Organizer [id number] at 01/25/2017 4:45 AM CDT documented in this encounter Plan of Treatment Scheduled Procedures Name Priority Associated Diagnoses Date/Time COLONOSCOPY Diarrhea documented as of this encounter Visit Diagnoses Not on filedocumented in this encounter
--- OUTSIDE RECORDS SUMMARY | 2022-07-03 10:44 | XMS_ITS | Encounter Summary ---
:1985 Author Organization [facility] Address [address] [place] [address] Care Team Providers Name Role Phone Unavailable [...] How often do you attend moravian or yazdanism More than 4 time s [...]
--- OUTSIDE RECORDS SUMMARY | 2022-07-03 10:44 | XMS_ITS | Encounter Summary ---
:1985 Author Organization [facility] Address [address] [place] [address] Care Team Providers Name Role Phone Unavailable Primary Care Provider Unavailable Encounter Details Date Type Department Care Team Description 10/03/2008 Hospital Encounter [facility] Provider, [facility] Social History Tobacco Use Types Packs/Day Years [...] How often do you attend spiritism or sikh More than 4 time s [...] Provider Ser - 10/03/2008 12:00 AM CST [id number] TELEPHONE TRIAGE ENCOUNTER FORM Date: 10/03/2008 PCP: Venu Yousif MD, MD Patient Name: Carol Juarez Gender: female : 1985 Age: [age] year old Time: 11:35 AM Phone Numbers: [phone] (home) Pharmacy: [facility] [place] ASSESSMENT Presenting Problem: Skin infection/left hand [...] FOLLOW-UP Will see Eddie Mcnair today. Source: [facility] RWHXTRANSXRTFSYS Document Id: [id number] documented in this encounter Plan of Treatment Scheduled Procedures Name Priority Associated Diagnoses Date/Time COLONOSCOPY Diarrhea documented as of this encounter Visit Diagnoses Not on filedocumented in this encounter
--- OUTSIDE RECORDS SUMMARY | 2022-07-03 10:44 | XMS_ITS | Encounter Summary ---
:1985 Author Organization [facility] Address [address] [place] [address] Care Team Providers Name Role Phone Unavailable Primary Care Provider Unavailable Encounter Details Date Type Department Care Team Description 02/04/2010 Hospital Encounter HX NO MAPPING Venu Yousif M.D. [address] [place], [place] [phone] (Wo rk) Social History [...] How often do you attend episcopal or advent More than 4 time s [...]
--- OUTSIDE RECORDS SUMMARY | 2022-07-03 10:44 | XMS_ITS | Encounter Summary ---
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 Source: [facility] Document Id: [id number] documented in this encounter Plan of Treatment Scheduled Procedures Name Priority Associated Diagnoses Date/Time COLONOSCOPY Diarrhea documented as of this encounter Visit Diagnoses Not on filedocumented in this encounter
--- OUTSIDE RECORDS SUMMARY | 2022-07-03 10:44 | XMS_ITS | Encounter Summary ---
:1985 Author Organization [facility] Address [address] [place] [address] Care Team Providers Name Role Phone Unavailable Primary Care Provider Unavailable Encounter Details Date Type Department Care Team Description 01/09/2009 Hospital Encounter [facility] Yamel Koch M.D. [address] [place] [address] (Wo rk) Social History Tobacco [...] How often do you attend sabianism or orthodoxy More than 4 time s [...] Yousif M.D. - 01/09/2009 3:00 PM CDT [id number] Comment: Water Meter Reader Chief Complaint Patient presents with Knee Pain [...] orKeflex is resistant to this. PCN/BTM/dac Source: [facility] RWHXTRANSXRTFSYS Document Id: [id number] Electronically signed by Conversion, [facility] Water Meter Reader [id number] at 01/24/2017 3:54 PM CDT documented in this encounter Plan of Treatment Scheduled Procedures Name Priority Associated Diagnoses Date/Time COLONOSCOPY Diarrhea documented as of this encounter Visit Diagnoses Not on filedocumented in this encounter
--- OUTSIDE RECORDS SUMMARY | 2022-07-03 10:45 | XMS_ITS | Encounter Summary ---
:1985 Author Organization [facility] Address [address] [place] [address] Care Team Providers Name Role Phone Unavailable [...] How often do you attend episcopal or zoroastrian More than 4 time s [...]
--- OUTSIDE RECORDS SUMMARY | 2022-07-03 10:45 | XMS_ITS | Encounter Summary ---
:1985 Author Organization [facility] Address [address] [place] [address] Care Team Providers Name Role Phone Unavailable Primary Care Provider Unavailable Encounter Details Date Type Department Care Team Description 06/01/2007 Hospital Encounter [facility] XRAY Provider, Histori huma Social History [...] How often do you attend jain or alevism More than 4 time s [...]
--- OUTSIDE RECORDS SUMMARY | 2022-07-03 10:45 | XMS_ITS | Encounter Summary ---
:1985 Author Organization [facility] Address [address] [place] [address] Care Team Providers Name Role Phone Unavailable Primary Care Provider Unavailable Encounter Details Date Type Department Care Team Description 10/10/2007 Hospital Encounter [facility] Adonis Weir M.D. [address] [place] [phone] (Wo rk) Social History Tobacco [...] How often do you attend moravian or yarsani More than 4 time s [...] Provider Ser - 10/10/2007 11:00 AM CST [id number] Gestational Age: 28w 5d Rhogam Injection given today. BR No concerns wds Source: [facility] RWMCHXTRANSXRTFSYS Document Id: [id number] documented in this encounter Plan of Treatment Scheduled Procedures Name Priority Associated Diagnoses Date/Time COLONOSCOPY Diarrhea documented as of this encounter Visit Diagnoses Not on filedocumented in this encounter
--- OUTSIDE RECORDS SUMMARY | 2022-07-03 10:45 | XMS_ITS | Encounter Summary ---
:1985 Author Organization [facility] Address [address] [place] [address] Care Team Providers Name Role Phone Unavailable Primary Care Provider Unavailable Encounter Details Date Type Department Care Team Description 10/24/2007 Hospital En[facility] Mariaelena Mcintosh M.D. Social History Tobacco Use [...] How often do you attend mormon or latter-day More than 4 time s [...] Kinney M.D. - 10/24/2007 11:00 AM CST [id number] Has some mild CHOWDHURY, migranes Used tylenol and Caffeine. Good movement. Exam normal. Skin lesion onarms - will get derm consult. KD Source: [facility] Document Id: [id number] Electronically signed by Conversion, [facility] Micro Computer Specialist [id number] at 01/25/2017 1:26 AM CDT documented in this encounter Plan of Treatment Scheduled Procedures Name Priority Associated Diagnoses Date/Time COLONOSCOPY Diarrhea documented as of this encounter Visit Diagnoses Not on filedocumented in this encounter
--- OUTSIDE RECORDS SUMMARY | 2022-07-03 10:45 | XMS_ITS | Encounter Summary ---
:1985 Author Organization [facility] Address [address] [place] [address] Care Team Providers Name Role Phone Unavailable Primary Care Provider Unavailable Encounter Details Date Type Department Care Team Description 2007 Hospital Encounter HX [facility] OBGYN Provider, Histor ical Social [...] How often do you attend islam or jehovah's witness More than 4 time [...] Provider Ser - 2007 9:15 AM CDT [id number] Repeat bp 144/86. No sx pree. Amnisure, nitrazine negative. Will check PIH labs and obs on LD. Source: [facility] Document Id: [id number] documented in this encounter Miscellaneous Notes Miscellaneous - Conversion, Historical Provider Ser - 2007 9:15 AM CDT [id number] 2007 Carol Juarez [id number] OB Admit History & Physical OB ADMIT [...] N/A Years of Education: 13 Occupational History [employer] Home Social History Main Topics Tobacco Use: [...] Negative GI: Negative BREAST: Negative : Negative FERN PICKER: Negative CV: Negative PULMONARY: Negative MUSCULOSKELETAL: Negative [...] labs. Rylee Grijalva MD MD Dept of AGILE SCRUM MASTER Source: [facility] Document Id: [id number] documented in this encounter Plan of Treatment Scheduled Procedures Name Priority Associated Diagnoses Date/Time COLONOSCOPY Diarrhea documented as of this encounter Visit Diagnoses Not on filedocumented in this encounter
--- OUTSIDE RECORDS SUMMARY | 2022-07-03 10:45 | XMS_ITS | Encounter Summary ---
:1985 Author Organization [facility] Address [address] [place] [address] Care Team Providers Name Role Phone Unavailable Primary Care Provider Unavailable Encounter Details Date Type Department Care Team Description 09/26/2007 Hospital Encounter [facility] Provider, Historic al Social History Tobacco [...] How often do you attend druze or congregational More than 4 time s [...]
--- OUTSIDE RECORDS SUMMARY | 2022-07-03 10:45 | XMS_ITS | Encounter Summary ---
:1985 Author Organization [facility] Address [address] [place] [address] Care Team Providers Name Role Phone Unavailable Primary Care Provider Unavailable Encounter Details Date Type Department Care Team Description 08/26/2007 Hospital Encounter [facility] X[facility] Provider, Histori huma Social History [...] How often do you attend shinto or taoist More than 4 time s [...] Historical Provider Ser - 08/26/2007 8:45 AM SPECIAL SERVICES SUPERVISOR [id number] Carol Juarez [address] [place] [phone] September 01, 2007 Dear Ms. Juarez: I [...] or problems, please contact our office at [phone]. Sincerely, Rylee Grijalva MD Dept. PROCESS CONTROLS TECHNICIAN [facility] Source: [facility] Document Id: [id number] documented in this encounter Plan of Treatment Scheduled Procedures Name Priority Associated Diagnoses Date/Time COLONOSCOPY Diarrhea documented as of this encounter Visit Diagnoses Not on filedocumented in this encounter
--- OUTSIDE RECORDS SUMMARY | 2022-07-03 10:45 | XMS_ITS | Encounter Summary ---
:1985 Author Organization [facility] Address [address] [place] [address] Care Team Providers Name Role Phone Unavailable Primary Care Provider Unavailable Encounter Details Date Type Department Care Team Description 11/07/2007 Hospital Encounter [facility] OBGYN Provider, Histor ical Social History [...] How often do you attend episcopal or amish More than 4 time s [...] Provider Ser - 11/07/2007 10:30 AM CDT [id number] C/o pressure.TM Patient reassured Would like to be seen by primary for rash. Has depigmented areas on foreqrms bilaterally. Not rpesent on remainder of body. Has had prior to , no other symptoms. KRN Source: [facility] Document Id: [id number] documented in this encounter Plan of Treatment Scheduled Procedures Name Priority Associated Diagnoses Date/Time COLONOSCOPY Diarrhea documented as of this encounter Visit Diagnoses Not on filedocumented in this encounter
--- OUTSIDE RECORDS SUMMARY | 2022-07-03 10:45 | XMS_ITS | Encounter Summary ---
:1985 Author Organization [facility] Address [address] [place] [address] Care Team Providers Name Role Phone Unavailable Primary Care Provider Unavailable Encounter Details Date Type Department Care Team Description 09/26/2007 Hospital Encounter [facility]X [facility] Marisol Galaviz, APR N, C.N.P. [address] [place], [place] [phone] (Wo rk) Social History [...] How often do you attend hoahaoism or christian More than 4 time s [...] Provider Ser - 09/26/2007 9:45 AM CST [id number] Carol is here for her 26 week visit. She is Gestational Age: 26w 5d weeks today. 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 Carol understands the [...] discussed: none Next appointment: 2,4 weeks [facility] Document Id: [id number] Marisol Irving C.N.P., R.N. - 09/26/2007 9:45 AM CST [id number] Gestational Age: 26w 5d 1 hr gtt, antibody screen and hgb done today. certificate form given. BR Doing well. Attending classes. ZENON Source: [facility] Document Id: [id number] Electronically signed by [facility], [facility] Broadcast Engineer [id number] at 01/25/2017 12:10 AM CDT documented in this encounter Miscellaneous Notes Miscellaneous - Marisol Irving C.N.P., R.N. - 09/26/2007 9:45 AM CST [id number] [facility] [address] [facility] [place] [address] September 27, 2007 Carol Juarez [address] [place] [phone] Dear Ms. Juarez: I am writing to [...] or problems, please contact our office at [phone]. Sincerely, Marisol Irving RN, PRODUCE SHIPPER [facility] Source: [facility] Document Id: [id number] Electronically signed by Conversion, [facility] Broadcast Engineer [id number] at 01/25/2017 12:10 AM CDT documented in this encounter Plan of Treatment Scheduled Procedures Name Priority Associated Diagnoses Date/Time COLONOSCOPY Diarrhea documented as of this encounter Visit Diagnoses Not on filedocumented in this encounter
--- OUTSIDE RECORDS SUMMARY | 2022-07-03 10:45 | XMS_ITS | Encounter Summary ---
:1985 Author Organization [facility] Address [address] [place] [address] Care Team Providers Name Role Phone Unavailable Primary Care Provider Unavailable Encounter Details Date Type Department Care Team Description 09/28/2007 Hospital Encounter HX [facility] Manuel Hernandez P.ABrittaney-CBrittaney [address] [place] [address] (Wo rk) Social History Tobacco [...] How often do you attend gnosticism or oriental orthodox More than 4 time [...] Karey Paula - 09/28/2007 8:30 AM CST [id number] SUBJECTIVE: Carol is a 21 year old [...] week or sooner if symptoms wrosen Source: [facility] RWHXTRANSXRTFSYS Document Id: [id number] Electronically signed by Conversion, [facility] Hris Specialist [id number] at 01/25/2017 12:10 AM CDT documented in this encounter Miscellaneous Notes Miscellaneous - Karey Paula - 09/28/2007 8:30 AM CST [id number] Carol Juarez [address] [place] [phone] September 28, 2007 To whom it may concern Please excuse Carol Juarez from work for illness on 09/28/2007. She may return to work on 09/29/2007 without limitation. If you have any other questions or concerns please feel free to contact me at anytime. Sincerely, Karey Paula PA-C Department of Family Practice [facility] Source: [facility] Document Id: [id number] Electronically signed by Conversion, [facility] Hris Specialist [id number] at 01/25/2017 12:10 AM CDT documented in this encounter Plan of Treatment Scheduled Procedures Name Priority Associated Diagnoses Date/Time COLONOSCOPY Diarrhea documented as of this encounter Visit Diagnoses Not on filedocumented in this encounter
--- OUTSIDE RECORDS SUMMARY | 2022-07-03 10:45 | XMS_ITS | Encounter Summary ---
:1985 Author Organization [facility] Address [address] [place] [address] Care Team Providers Name Role Phone Unavailable Primary Care Provider Unavailable Encounter Details Date Type Department Care Team Description 05/24/2007 Hospital Encounter [facility] OBGYN Provider, Histor ical Social History [...] How often do you attend yarsanism or voodoo More than 4 time s [...] Provider Ser - 05/24/2007 12:00 AM CDT [id number] LMP: 03/12/07- Uncertain Dates NGA: 12/18/06 Triage/Phone [...] as soon as can be scheduled. Source: [facility] RWHXTRANSXRTFSYS Document Id: [id number] documented in this encounter Plan of Treatment Scheduled Procedures Name Priority Associated Diagnoses Date/Time COLONOSCOPY Diarrhea documented as of this encounter Visit Diagnoses Not on filedocumented in this encounter
--- OUTSIDE RECORDS SUMMARY | 2022-07-03 10:45 | XMS_ITS | Encounter Summary ---
:1985 Author Organization [facility] Address [address] [place] [address] Care Team Providers Name Role Phone Unavailable Primary Care Provider Unavailable Encounter Details Date Type Department Care Team Description 11/25/2007 Hospital Encounter [facility] O[facility] Provider, Histor ical Social History [...] How often do you attend yazidism or mandaeism More than 4 time s [...] Provider Ser - 11/25/2007 2:00 PM CDT [id number] Gestational Age: 35w 2d, recheck b/p, has a lot of pelvic pressure, has some leakage after she voids,JZ No sx pree. Repeat bp 122/80. Nitrazine negative. No ctx/vb. Decreased movement. BPP performed in clinic ANA LUISA 16cm. +2 breathing, +2 flexion/extension, +2 gross movement, +2 fluid = 88 Source: [facility] RWHXTRANSXRTFSYS Document Id: [id number] documented in this encounter Plan of Treatment Scheduled Procedures Name Priority Associated Diagnoses Date/Time COLONOSCOPY Diarrhea documented as of this encounter Visit Diagnoses Not on filedocumented in this encounter
--- OUTSIDE RECORDS SUMMARY | 2022-07-03 10:45 | XMS_ITS | Encounter Summary ---
:1985 Author Organization [facility] Address [address] [place] [address] Care Team Providers Name Role Phone Unavailable Primary Care Provider Unavailable Encounter Details Date Type Department Care Team Description 06/01/2007 Hospital Encounter HX NO MAPPING Marisol Irving APRN, C.N.P. [address] [place], [place] [phone] (Wo rk) Social History [...] How often do you attend adventist or quaker More than 4 time s [...]
--- OUTSIDE RECORDS SUMMARY | 2022-07-03 10:45 | XMS_ITS | Encounter Summary ---
:1985 Author Organization [facility] Address [address] [place] [address] Care Team Providers Name Role Phone Unavailable Primary Care Provider Unavailable Encounter Details Date Type Department Care Team Description 12/14/2007 Hospital Encounter [facility]X [facility] OBGYN Provider, Histor ical Social History [...] How often do you attend buddhism or hinduism More than 4 time s [...] Provider Ser - 12/14/2007 9:45 AM CDT [id number] No complaints, exam normal KRN No regular contractions KRN Source: [facility] Document Id: [id number] documented in this encounter Plan of Treatment Scheduled Procedures Name Priority Associated Diagnoses Date/Time COLONOSCOPY Diarrhea documented as of this encounter Visit Diagnoses Not on filedocumented in this encounter
--- OUTSIDE RECORDS SUMMARY | 2022-07-03 10:45 | XMS_ITS | Encounter Summary ---
:1985 Author Organization [facility] Address [address] [place] [address] Care Team Providers Name Role Phone Unavailable Primary Care Provider Unavailable Encounter Details Date Type Department Care Team Description 09/28/2007 Hospital Encounter [facility] Dave Dela Cruz, R.N. Social History [...] How often do you attend cheondoism or latter day More than 4 time [...] Cruz R.N. - 09/28/2007 12:00 AM CST [id number] Patient called reports that she was into [...] Patient agrees to plan or care. Source: [facility] RWHXTRANSXRTFSYS Document Id: [id number] documented in this encounter Plan of Treatment Scheduled Procedures Name Priority Associated Diagnoses Date/Time COLONOSCOPY Diarrhea documented as of this encounter Visit Diagnoses Not on filedocumented in this encounter
--- OUTSIDE RECORDS SUMMARY | 2022-07-03 10:45 | XMS_ITS | Encounter Summary ---
:1985 Author Organization [facility] Address [address] [place] [address] Care Team Providers Name Role Phone Unavailable Primary Care Provider Unavailable Encounter Details Date Type Department Care Team Description 07/27/2007 Hospital Encounter [facility]X [facility] OBGYN [...] Monsivais L.PBrittaneyNBrittaney - 07/27/2007 8:45 AM CST [id number] Addended by: ALISON GONZALEZ on: 07/27/2007 9:07:44 AM Modules accepted: Orders [facility] Document Id: [id number] Electronically signed by Conversion, [facility] Fire Equipment Operator [id number] at 01/25/2017 5:21 AM CDT Conversion, Historical Provider Ser - 07/27/2007 8:45 AM CST [id number] Gestational Age: 18w, feels ok, 20 week waiver signed,declines to have quad test, JZ Doing well, no concerns. Early 1hr glu today. U/s ordered. [facility] Document Id: [id number] documented in this encounter Miscellaneous Notes Miscellaneous - Marisol Irving, C.N.P., R.N. - 07/27/2007 8:45 AM CST [id number] [facility] [address] [place] [address] July 27, 2007 Carol Juarez [address] [place] [phone] Dear Ms. Juarez: I am writing to [...] or problems, please contact our office at [phone]. Sincerely, Marisol Irving RN, FISH WARDEN [facility] Source: [facility] Document Id: [id number] Electronically signed by Conversion, [facility] Fire Equipment Operator [id number] at 01/25/2017 5:21 AM CDT documented in this encounter Plan of Treatment Scheduled Procedures Name Priority Associated Diagnoses Date/Time COLONOSCOPY Diarrhea documented as of this encounter Visit Diagnoses Not on filedocumented in this encounter
--- OUTSIDE RECORDS SUMMARY | 2022-07-03 10:45 | XMS_ITS | Encounter Summary ---
:1985 Author Organization [facility] Address [address] [place] [address] Care Team Providers Name Role Phone Unavailable Primary Care Provider Unavailable Encounter Details Date Type Department Care Team Description 08/26/2007 Hospital [facility] Casi Vo M.D. [address] [place], [place] [phone] (Wo rk) Social History [...] How often do you attend zoroastrian or christianity More than 4 time s [...] Grove M.D. - 08/26/2007 9:30 AM CST [id number] Less GERD, not taking it now. Had US today. KG Source: [facility] RWHXTRANSXRTFSYS Document Id: [id number] documented in this encounter Plan of Treatment Scheduled Procedures Name Priority Associated Diagnoses Date/Time COLONOSCOPY Diarrhea documented as of this encounter Visit Diagnoses Not on filedocumented in this encounter
--- OUTSIDE RECORDS SUMMARY | 2022-07-03 10:45 | XMS_ITS | Encounter Summary ---
:1985 Author Organization [facility] Address [address] [place] [address] Care Team Providers Name Role Phone Unavailable Primary Care Provider Unavailable Encounter Details Date Type Department Care Team Description 12/07/2007 Hospital Encounter [facility] Marisol Galaviz, APR N, C.N.P. [address] [place], [place] [phone] (Wo rk) Social History [...] How often do you attend mormon or roman catholic More than 4 time [...] C.NBrittaneyP., R.N. - 12/07/2007 10:30 AM CDT [id number] Carol is here at Gestational Age: 37w. [...] Enc. to call with any concerns. Source: [facility] Document Id: [id number] Electronically signed by Conversion, [facility] Brick Burner Head [id number] at 01/25/2017 2:07 AM CDT Marisol Irving C.N.P., R.N. - 12/07/2007 10:30 AM CDT [id number] Gestational Age: 37w GBS and HGB done today. plan and hospital arrival information given. C/O low back, leg and pelvic pain all the time. Hurts to stand more than 5 min at a time. BR Will limit work to 4 hours per day d/t increased edema. Warning signs discussed. FKC also discussed.ZENON Source: [facility] Document Id: [id number] Electronically signed by Conversion, [facility] Brick Burner Head [id number] at 01/25/2017 2:07 AM CDT documented in this encounter Miscellaneous Notes Miscellaneous - Marisol Irving C.N.P., R.N. - 12/07/2007 10:30 AM CDT [id number] Date: 12/07/2007 Name: Carol Juarez Birthdate: 1985 The patient was seen at: [facility] today Restrictions if any: Please limit work to 4 hours per day. Marisol Irving RN, PROFESSOR OF THEATRE OBSTETRICS/GYNECOLOGY [facility] Source: [facility] RWHXTRANSXRTFSYS Document Id: [id number] Electronically signed by Conversion, [facility] Brick Burner Head [id number] at 01/25/2017 2:07 AM CDT documented in this encounter Plan of Treatment Scheduled Procedures Name Priority Associated Diagnoses Date/Time COLONOSCOPY Diarrhea documented as of this encounter Visit Diagnoses Not on filedocumented in this encounter
--- OUTSIDE RECORDS SUMMARY | 2022-07-03 10:45 | XMS_ITS | Encounter Summary ---
:1985 Author Organization [facility] Address [address] [place] [address] Care Team Providers Name Role Phone Unavailable Primary Care Provider Unavailable Encounter Details Date Type Department Care Team Description 06/27/2007 Hospital Encounter [facility] Marisol Galaviz, APR N, C.N.P. [address] [place], [place] [phone] (Wo rk) Social History [...] How often do you attend yazidi or scientologist More than 4 time s [...] C.NLebron., R.N. - 06/27/2007 11:00 AM CST [id number] Addended by: MARISOL IRVING on: 06/29/2007 12:10:37 PM Modules accepted: Orders Source: [facility] Document Id: [id number] Electronically signed by Conversion, [facility] Architectural Engineering Teacher [id number] at 01/25/2017 10:01 AM CDT Conversion, Historical Provider Ser - 06/27/2007 11:00 AM CST [id number] Addended by: LORENZO ARIAS on: 06/29/2007 1:34:55 PM Modules accepted: Orders Source: [facility] Document Id: [id number] Conversion, Historical Provider Ser - 06/27/2007 11:00 AM CST [id number] OK for message at home Genetic Screening: [...] to early sono done. She lives in [place] with mother. Carol has been feeling OK. She works at [employer]. Family is close and supportive. [facility]. Assessment: vitamins: Is taking them. Diet: Regular diet, no history of an eating disorder. Adequate calcium intake discussed. She has been referred to meet with the rubbish collector. Transportation issues: none Safe relationship: She feels safe in current relationship. She has no history of abusive relationhips. Financial Concerns: doing OK Insurance: [place] for [place] Social Service/Public Health: WIC She is a [...] call with any questions. Referrals: None Source[facility] Document Id: [id number] Marisol Irving C.NBrittaneyP., R.N. - 06/27/2007 11:00 AM CST [id number] Body mass index is 40.11 kg/(m`2). Obesity protocol. 1 GTT with next visit. Early sono done for dates. Applying for MA, WIC, GCPH consult ordered. Quitting smoking. ZENON Source: [facility] Document Id: [id number] Electronically signed by Conversion, [facility] Architectural Engineering Teacher [id number] at 01/25/2017 10:01 AM CDT documented in this encounter Miscellaneous Notes Miscellaneous - Conversion, Historical Provider Ser - 06/27/2007 11:00 AM DIGITAL STRATEGY SPECIALIST [id number] Carol Juarez [address] [place] [phone] June 29, 2007 Dear Carol Juarez, I am happy to inform you that your recent cervical cancer screening test (PAP smear) was normal. Preventative screening such as this helps insure your health for years to come. Congratulations for taking care of yourself! Please contact my office if you have any further questions. [phone]. Sincerely, Marisol Irving RN, CLIENT ONBOARDING ANALYST OBSTETRICS/GYNECOLOGY [facility] Source: [facility] Document Id: [id number] Miscellaneous - Marisol Irving C.N.P., R.N. - 06/27/2007 11:00 AM CST [id number] Carol Juarez [address] [place] [phone] June 29, 2007 MR#: [id number] Dear Carol, I am happy to inform [...] free to give me a call at [phone]. Sincerely, Marisol Irving RN,CLIENT ONBOARDING ANALYST video presentation operator [facility] Source: [facility] Document Id: [id number] Electronically signed by Conversion, [facility] Architectural Engineering Teacher [id number] at 01/25/2017 10:01 AM CDT documented in this encounter Plan of Treatment Scheduled Procedures Name Priority Associated Diagnoses Date/Time COLONOSCOPY Diarrhea documented as of this encounter Visit Diagnoses Not on filedocumented in this encounter
--- OUTSIDE RECORDS SUMMARY | 2022-07-03 10:45 | XMS_ITS | Encounter Summary ---
:1985 Author Organization [facility] Address [address] [place] [address] Care Team Providers Name Role Phone Unavailable Primary Care Provider Unavailable Encounter Details Date Type Department Care Team Description 12/02/[address] [facility] Casi Vo M.D. [address] [place], [place] [phone] (Wo rk) Social History [...] How often do you attend yazidi or yazdanism More than 4 time s [...] Grove M.D. - 12/02/2007 9:30 AM CDT [id number] Having some cramping. She's 36 weeks now so given 36 week instructions GBS/Hg done. KARY reviewed. BP good today. KG Source: [facility] Document Id: [id number] Electronically signed by [facility] Shirt Marker [id number] at 01/25/2017 2:07 AM CDT documented in this encounter Miscellaneous Notes Ann Barfield M.D. - 12/02/2007 9:30 AM CDT [id number] Carol Magalys [address] [phone] December 05, 2007 Dear Carol: I am [...] or problems, please contact our office at [phone]. Sincerely, Ann Grove MD, DIGITAL MEDIA REPRESENTATIVE Department [facility] Source: [facility] Document Id: [id number] Ann Barfield M.D. - 12/02/2007 9:30 AM CDT [id number] Carol Dowell [address] [phone] December 05, 2007 Dear Carol: I am [...] or problems, please contact our office at [phone]. Sincerely, Ann Grove MD, DIGITAL MEDIA REPRESENTATIVE Department [facility] Source: [facility] Document Id: [id number] documented in this encounter Plan of Treatment Scheduled Procedures Name Priority Associated Diagnoses Date/Time COLONOSCOPY Diarrhea documented as of this encounter Visit Diagnoses Not on filedocumented in this encounter
--- OUTSIDE RECORDS SUMMARY | 2022-07-03 10:45 | XMS_ITS | Encounter Summary ---
:1985 Author Organization [facility] Address [address] [place] [address] Care Team Providers Name Role Phone Unavailable Primary Care Provider Unavailable Encounter Details Date Type Department Care Team Description 11/21/2007 Hospital Encounter [facility]X [facility] Yamel Koch M.D. [address] [place] [address] (Wo rk) Social History Tobacco [...] How often do you attend yarsanism or presybeterian More than 4 time s [...] Yousif M.D. 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 She is from [place]. She has not tried any medications for [...] delivers. PCN/btm/mp Source: [facility] Document Id: [id number] documented in this encounter Plan of Treatment Scheduled Procedures Name Priority Associated Diagnoses Date/Time COLONOSCOPY Diarrhea documented as of this encounter Visit Diagnoses Not on filedocumented in this encounter
--- OUTSIDE RECORDS SUMMARY | 2022-07-03 10:45 | XMS_ITS | Encounter Summary ---
:1985 Author Organization [facility] Address [address] [place] [address] Care Team Providers Name Role Phone Unavailable Primary Care Provider Unavailable Encounter Details Date Type Department Care Team Description 08/18/2007 Hospital Encounter HX [facility] Casi Vo M.D. [address] [place], [place] [address] (Wo rk) Social History [...] How often do you attend confucianism or pentecostalism More than 4 time s [...] Grove M.D. - 08/18/2007 9:15 AM CST [id number] Had presyncopal episode at work this am, better now GERD-can try zantac and maalox prn. KG Source: [facility] RWHXTRANSXRT[facility]YS Document Id: [id number] Electronically signed by Conversion, [facility] Medication Reconciliation Technician [id number] at 01/25/2017 5:21 AM CDT documented in this encounter Plan of Treatment Scheduled Procedures Name Priority Associated Diagnoses Date/Time COLONOSCOPY Diarrhea documented as of this encounter Visit Diagnoses Not on filedocumented in this encounter
--- OUTSIDE RECORDS SUMMARY | 2022-07-03 10:45 | XMS_ITS | Encounter Summary ---
:1985 Author Organization [facility] Address [address] [place] [address] Care Team Providers Name Role Phone Unavailable Primary Care Provider Unavailable Encounter Details Date Type Department Care Team Description 11/21/2007 Hospital Encounter HX [facility] Casi Vo M.D. [address] [place], [place] [phone] (Wo rk) Social History [...] documented as of this encounter Progress Notes nAn Grove M.D. - 11/21/2007 2:00 PM CDT [id number] Gestational Age: 34w 5d C/O increased edema in feet and hands. BR Repeat BP 130/78 sitting. Reviewed S/S of PIH, will limit work to 8 hrs a day (now working 10hr) follow up in 4-5 days. KG Source: [facility] Document Id: [id number] Electronically signed by Conversion, [facility] Mobile Application Engineer [id number] at 01/25/2017 1:26 AM CDT documented in this encounter Miscellaneous Notes Miscellaneous - Ann Grove M.D. - 11/21/2007 2:00 PM CDT [id number] Return to Work Release Date: 11/21/2007 Name: Carol Juarez Birthdate: 1985 The patient was seen at: [facility] today Restrictions if any: May work no more than 8 hrs due to complications. Ann Grove M.D. OBSTETRICS/GYNECOLOGY [facility] Source: [facility] Document Id: [id number] Electronically signed by Conversion, [facility] Mobile Application Engineer [id number] at 01/25/2017 1:26 AM CDT documented in this encounter Plan of Treatment Scheduled Procedures Name Priority Associated Diagnoses Date/Time COLONOSCOPY Diarrhea documented as of this encounter Visit Diagnoses Not on filedocumented in this encounter
--- OUTSIDE RECORDS SUMMARY | 2022-07-03 10:45 | XMS_ITS | Encounter Summary ---
:1985 Author Organization [facility] Address [address] [place] [address] Care Team Providers Name Role Phone Unavailable Primary Care Provider Unavailable Encounter Details Date Type Department Care Team Description 12/21/2007 Hospital Encounter HX [facility] Casi Vo M.D. [address] [place], [place] [phone] (Wo rk) Social [...] How often do you attend alevism or islam More than 4 time s [...] Grove M.D. - 12/21/2007 10:15 AM CDT [id number] Repeat BP 132/80. Has 2+ edema. No headache, visual changes Signs and symptoms of PIH discussed. Will follow up Mon with 24 hr urine and labs and appt. KG Source: [facility] RWMCHXTRANSXRTFSYS Document Id: [id number] documented in this encounter Plan of Treatment Scheduled Procedures Name Priority Associated Diagnoses Date/Time COLONOSCOPY Diarrhea documented as of this encounter Visit Diagnoses Not on filedocumented in this encounter
[2022-07-03 12:26] LABS: HCG Quantitative* 139.25 mIU/mL
== END 2022-07-03 10:29 | disposition home or self-care (01) ==
LOC: NFLDREF 10:30
PROVIDERS: Visit Provider Obstetrics & Gynecology
DX: O03.9 Complete or unspecified spontaneous abortion without complication (principal)
CPT/HCPCS: 84702; 87086

== ENCOUNTER 2022-07-08 15:41 | Outpatient (CLI) | payer OTHER, SELFPAY ==
--- OUTSIDE RECORDS SUMMARY | 2022-07-08 08:49 | XMS_ITS | Encounter Summary ---
:1985 Author Organization [facility] Address [address] [place] [address] Care Team Providers Name Role Phone Alberto Locke M.D. Primary Care Provider Reason for Visit Reason Comments Follow-up Encounter Details Date Type Department Care Team Description 05/13/2022 Clinical Communication Department of Nichole Ivey Follow-up Obstetrics and A, R.N. Gynecology in [address] [address] [place], [place] [phone] [address] (Work) [phone] Social History Tobacco Use Types Packs/Day Years [...] How often do you attend methodist or amish More than 4 time s [...] to pay for the very basics like [employer] hat hard 07/09/2020 food, housing, medical care, [...] and informed of plan. Patient transferred to dental office receptionist to schedule. Warning signs for ectopic [...] Code Phon e Number [facility]- [address] [place] [address] 54 [phone] [facility] [place] [address] [address] (ABNORMAL) hCG (Human Chorionic Gonadotropin), Quantitative, (05/13/2022 12:07 PM CDT) Analysis Performed At [facility] Time [place] HCG, [address] (H) <5 IU/L 05/13/2022 R[facility] Quantitative, 1:11 PM CDT , P Specimen Anatomical Collection Method Collection Time Receive d Time (Source) Location / / Volume Laterality Blood (Blood, 05/13/2022 12:07 05/13/2022 Venous) PM CDT 12:21 PM CDT Rusty Guevara M.D. 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 PCP - General Family Medicine 04/27/19 [place] [phone] documented as of this encounter
--- OUTSIDE RECORDS SUMMARY | 2022-07-08 08:49 | XMS_ITS | Encounter Summary ---
:1985 Author Organization [facility] Address [address] [place] [address] Care Team Providers Name Role Phone Alberto Locke M.D. Primary Care Provider Encounter Details Date Type Department Care Team Description 05/02/2022 Emergency [facility] [place], Carlie Bronchitis (Primary Department A, HYDROELECTRIC PLANT ELECTRICAL ENGINEER, C.N.P., Dx) [address] [place], [place] [address], [place] [address] [address] [place], [place] [phone] [address] (Wo rk) Social History Tobacco Use [...] How often do you attend confucianist or lutheran More than 4 time s [...] sent through Care Everywhere. Acute Bronchitis Adult Asjx-yj-Ghqv (Georgian)documented in this encounter Medications at Time of [...] Depression Total Score: 9 07/08/2020 3:59 PM DATA INTEGRATION ARCHITECT documented as of this encounter Care Teams Fitness And Wellness Manager Relationship Specialty Start Date End Date Alberto Locke M.D. PCP - General Family Medicine 04/27/19 [place] [address] documented as of this encounter
--- OUTSIDE RECORDS SUMMARY | 2022-07-08 08:49 | XMS_ITS | Encounter Summary ---
:1985 Author Organization [facility] Address [address] [place] [address] Care Team Providers Name Role Phone Alberto Locke M.D. Primary Care Provider Encounter Details Date Type Department Care Team Description 05/13/2022 Orders Only Department of [place], Surveillance Obstetrics and Rusty Santiago M.D. Intrauterine Device Gynecology in [facility] [address] (Primary Dx) [place] [address] [address] [place] [address] Social History Tobacco Use Types [...] How often do you attend restoration or yarsanism More than 4 time s [...] Depression Total Score: 9 07/08/2020 3:59 PM AUDITING CONTROL CLERK documented as of this encounter Care Teams Consulting It Architect Relationship Specialty Start Date End Date Alberto Locke M.D. PCP - General Family Medicine 04/27/19 [address] [place] [phone] documented as of this encounter
--- OUTSIDE RECORDS SUMMARY | 2022-07-08 08:49 | XMS_ITS | Clinical Summary ---
:1985 Author Organization [facility] Address [address] [place] [address] Care Team Providers Name Role Phone Alberto Locke M.D. Primary Care Provider Source Comments Patient records contain information from all sites at [facility]. For routine questions regarding patient records, call [phone] during business hours, M-F 8:00 AM - 5:00 PM Central Time. Record requests for emergency care only can be directed to [phone] at any time.[facility] Allergies Active Allergy Reactions Severity Noted Date [...] Added automatically from request for guillermina arreola [id number] Body Mass Index 60.0 To 69.9 Adult [...] Added automatically from request for guillermina arreola [id number] Hemorrhage Gastrointestinal 11/13/2017 02/18/2018 Pain Right Upper Quadrant 11/11/2017 04/20/2019 Melena 11/11/2017 02/18/2018 Overview: Added automatically from request for guillermina arreola [id number] Hypovolemic Shock 11/11/2017 02/18/2018 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 (Primar y Dx) 05/02/2022 Emergency [...] history exists Medical Devices Implanted Type Area Field Artillery Operations Specialist Device Shelf Model / Identifier Expiration Serial / Date Lot Hardware E.G. Hardware Abdomen Pins/Screws/Ro e.g. ds pins/screws/ rods Description: Clamp for GI bleed Nexplanon-07/20/2018 Other/Legacy - See Arm 10/07/2020 / Implanted: 07/20/2018 by Leonora Reaves APRN, C.N.P. ( Quantity not on file) Implant Description / [id number] Procedures Procedure Name Priority Date/Time Associated Comments [...] Device are in the outpatients) results section. [place] REMOVAL OF Routine 05/13/2022 1:15 Surveillance Results [...] ANKLE RIGHT 3+ VIEWS Procedure Note Parth Wlaton M.D. - 05/26/2022Formatt ing of this note [...] Unknown, NGA: N/A INTRAUTERINE Pole: Not seen, [place]-Rump Length: N/A Gestational Sac: Normal Yolk Sac: [...] Unknown, NGA: N/A INTRAUTERINE Pole: Not seen, [place]-Rump Length: N/A Gestational Sac: Normal Yolk Sac: [...] Rusty Guevara M.D. IMG OB US PROCEDURES [place] REMOVAL OF INTRAUTERINE DEVICE (05/13/2022 1:15 PM [...] - GENE RAL ORDERABLES Performing Organization Address City/[facility] Phon e Number [facility]- [address] [place] [address] 24 [phone] [facility] [place] [address] System [address] (ABNORMAL) Urinalysis with Microscopic: (05/13/2022 12:30 [...] 8.0 05/13/2022 12:51 PM CDT R[facility] Specific [place] >=1.030 1.001 - 1.035 05/13/2022 12:51 PM [...] e Number [facility]- [address] [place] [address] [place] [address] System in [place] [address] (ABNORMAL) hCG (Human Chorionic Gonadotropin), Quantitative, (05/13/2022 12:07 PM CDT) Analysis Performed At Patho logist Time Signature HCG, [address] (H) <5 IU/L 05/13/2022 R[facility] Quantitative, 1:11 PM CDT , P Specimen Anatomical Collection Method Collection Time Receive d Time (Source) Location / / Volume Laterality Blood (Blood, 05/13/2022 12:07 05/13/2022 Venous) PM CDT 12:21 PM CDT Rusty Guveara M.D. LAB BLOOD ADD-ON Performing Organization Address City/State/ZIP Code Phon e Number [facility]- [address] [place], [place] [address] [place] [address] System in [place] [address] from Last 3 Months Insurance Payer Benefit Plan Subscriber ID Effective Dates Phone Address Type / Group [facility] [id number] 2018-Tana [phone] [id number] PPO EMPLOYEE PLAN t [address] [id number] (Home) [place] [phone] (Work) Advance Directives For more information, please contact: [phone] Latest Code Status on File Code Status [...] Due to: Not medically appropriate Care Teams It Network Engineer Relationship Specialty Start Date End Date Alberto Locke M.D. PCP - General Family Medicine 04/27/19 [address] [place] [phone]
--- OUTSIDE RECORDS SUMMARY | 2022-07-08 08:49 | XMS_ITS | Encounter Summary ---
:1985 Author Organization [facility] Address [address] [place] [address] Care Team Providers Name Role Phone Alberto Locke M.D. Primary Care Provider Encounter Details Date Type Department Care Team Description 05/13/2022 Hospital Department of [place], Surveillance Encounter Laboratory Oluwafunmilayo O, Intrauteri ne Device Medicine in [address] [address] [phone] Social History Tobacco Use Types Packs/Day Years [...] How often do you attend rastafari or baptism More than 4 time s [...] Performed At Patho logist Time Signature HCG, [address] (H) <5 IU/L 05/13/2022 R[facility] Quantitative, 1:11 PM CDT , P Specimen Anatomical Collection Method Collection Time Receive d Time (Source) Location / / Volume Laterality Blood (Blood, 05/13/2022 12:07 05/13/2022 Venous) PM CDT 12:21 PM CDT Rusty Guevara M.D. LAB BLOOD ADD-ON Performing Organization Address City/State/ZIP Code Phon e Number [facility]- [address] [place] [address] [address] [place] [address] System in [place] [address] documented in this encounter Visit Diagnoses Diagnosis Surveillance Intrauterine Device documented in this encounter Additional Health Concerns Assessment Noted Time PHQ-9 Depression Total Score: 9 07/08/2020 3:59 PM REWRITER documented as of this encounter Care Teams Warehouse Material Handler Relationship Specialty Start Date End Date Alberto Locke M.D. PCP - General Family Medicine 04/27/19 [address] [place] [address] documented as of this encounter
--- OUTSIDE RECORDS SUMMARY | 2022-07-08 08:49 | XMS_ITS | Encounter Summary ---
:1985 Author Organization [facility] Address [address] [place] [address] Care Team Providers Name Role Phone Alberto Locke M.D. Primary Care Provider Reason for Visit Outpatient (Routine) - Canceled Specialty Diagnoses / Procedures Referred By Contact Refer red To Contact Diagnoses Surveillance Intrauterine Device [place], Oluwafunmilayo O, [facility] Procedures US Pelvis Transvaginal and Transabdominal US Pelvis Transvaginal and Transabdominal M.DBrittaney [address] [place] [address] Referral ID Status Reason Start Date Expiration Date Visits V isits Requested Authorized [id number] Canceled 05/13/2022 05/13/2023 1 1 Encounter Details Date Type Department Care Team Description 05/13/2022 Hospital Department of [place], Surveillance Encounter Radiology in [place] O, Intrau terine Device [place], [place] M.DBrittaney [address] [facility] [address] [place] [phone] (Wo rk) Social History Tobacco Use Types [...] Unknown, NGA: N/A INTRAUTERINE Pole: Not seen, [place]-Rump Length: N/A Gestational Sac: Normal Yolk Sac: [...] Unknown, NGA: N/A INTRAUTERINE Pole: Not seen, [place]-Rump Length: N/A Gestational Sac: Normal Yolk Sac: [...] Depression Total Score: 9 07/08/2020 3:59 PM EXECUTIVE STAFF ASSISTANT documented as of this encounter Care Teams Gardening Instructor Relationship Specialty Start Date End Date Alberto Locke M.D. PCP - General Family Medicine 04/27/19 [place] [phone] documented as of this encounter
--- OUTSIDE RECORDS SUMMARY | 2022-07-08 08:49 | XMS_ITS | Encounter Summary ---
:1985 Author Organization [facility] Address [address] [place] [address] Care Team Providers Name Role Phone Alberto Locke M.D. Primary Care Provider Reason for Visit Reason Comments Ankle Injury Encounter Details Date Type Department Care Team Description 05/26/2022 Emergency [place] [facility], Jeaneth Bustillos, Inj ury Ankle Initial Right (Primary Dx); Department P.A.-C. Sprain Ankle Initial Right [address] [place] [phone] Social History Tobacco Use Types Packs/Day [...] How often do you attend yarsani or quaker More than 4 time s [...] be sent through Care Everywhere. Ankle Sprain (Portuguese)documented in this encounter Medications at Time of [...] disposition will be home. Nuno Quijano, ZEYAD, SUPERVISOR [employer], SOFTWARE CONTROLS ENGINEER-C, AGACNP-BC, ENP-C Emergency Medicine Nuno Quijano C.N.P. [...] Hemorrhage Gastrointestinal 11/13/2017 Hypertension NOS Hypovolemic Shock ([facility]) 11/11/2017 Sleep Apnea does not use CPAP machine Patient Active Problem List Diagnosis Body Mass Index 60.0 To 69.9 Adult ([facility]) Abuse Tobacco Smoking Migraine Headache Apnea Sleep Obstructive Gastroesophageal Reflux Disease NOS Attention Deficit With Hyperactivity Disorder Depression Major Recurrent ([facility]) Diarrhea Medications: No current facility-administered medications on [...] Depression Total Score: 9 07/08/2020 3:59 PM HYDRATOR documented as of this encounter Care Teams Freelance Web Designer Relationship Specialty Start Date End Date Alberto Locke M.D. PCP - General Family Medicine 04/27/19 [address] [place] [address] documented as of this encounter
--- OUTSIDE RECORDS SUMMARY | 2022-07-08 08:49 | XMS_ITS | Encounter Summary ---
:1985 Author Organization [facility] Address [address] [place] [address] Care Team Providers Name Role Phone Alberto Locke M.D. Primary Care Provider Reason for Referral Outpatient (Routine) - Authorized Specialty Diagnoses / Procedures Referred By Contact Refer red To Contact Orthopedic Surgery Nicolette Moise APRN, [facility] [place] [facility] C.N.P., D.N.P. [address] [place] [address] Referral ID Status Reason Start Date Expiration Date Visits V isits Requested Authorized [id number] Authorized 05/05/2022 05/04/2025 1 1 RI/CAT/PET Scan (Routine) - Pending Review Specialty Diagnoses / Procedures Referred By Contact Refer red To Contact Radiology Diagnoses Pain Knee Left Nicolette Moise APRN, [facility] [place] [facility] Procedures MR Knee Left without IV Contrast C.N.P., D.N.P. [address] [place] [address] Referral ID Status Reason Start Date Expiration Date Visits V isits Requested Authorized [id number] Pending 05/05/2022 05/05/2023 1 1 Review Encounter Details Date Type Department Care Team Description 05/05/2022 Orders Only Department of Nicolette Moise L, Pain Knee L eft Orthopedic Surgery in [place], (Prim shonna Dx) Caroline Toure D.N.P. [address] [place] [phone] Social History Tobacco Use Types Packs/Day [...] How often do you attend islam or spiritism More than 4 time s [...] Depression Total Score: 9 07/08/2020 3:59 PM RAIL CAR MECHANIC documented as of this encounter Care Teams Superintendent Commissary Relationship Specialty Start Date End Date Alberto Locke M.D. PCP - General Family Medicine 04/27/19 [address] [place] [phone] documented as of this encounter
--- OUTSIDE RECORDS SUMMARY | 2022-07-08 08:49 | XMS_ITS | Encounter Summary ---
:1985 Author Organization [facility] Address [address] [place] [address] Care Team Providers Name Role Phone Alberto [...] Type Department Care Team Description 02/21/2022 Emergency [place] [facility] [place], Infection Urinary Department Ray Mustafa M.D. Tract (Primary Dx) [address] [place] [place], [place] [phone] (Wo rk) Social History Tobacco Use Types [...] How often do you attend alevism or pentecostalism More than 4 time s [...] were examined and treated today in the [facility] Emergency Department (ED) on an emergency [...] through Care Everywhere. Urinary Tract Infection Adult (Tanzanian)documented in this encounter Medications at Time of [...] 3:35 AM CDT) Analysis Performed At [facility] Time Signature Source Urine, Urine, 02/21/2022 R[facility] [...] 8.0 02/21/2022 3:44 AM CDT RDW[facility] Specific [place] 1.022 1.001 - 1.035 02/21/2022 3:44 AM [...] Code Phon e Number [facility]- [address] [place] [address] [place] [address] System in [place] [address] [place] [address] Basic Metabolic Panel (02/21/2022 2:36 AM CDT) [...] CDT eGFR-Black/Afric >90 >=60 02/21/2022 RDWG an Norwegian mL/min/BSA 3:03 AM CDT Comment: ----ADDITIONAL INFORMATION---- [...] Code Phon e Number [facility]- [address] [place] [address] [place] [address] [place] [facility] [place] [facility] [place] [address] System in [place] [place] CBC with Differential, Blood (02/21/2022 [...] Number [facility]- [address] [place], [place] [address] [place] [facility] [place] [facility] [address] System in [place] [address] (ABNORMAL) Blood Gas with Coox, Venous (02/21/2022 2:36 AM CDT) [facility] gist Method Time Signature Venous Sample [...] Number [facility]- [address] [place], [place] [address] [place] [address] System in [place] [address] documented in this encounter Visit Diagnoses Diagnosis Infection Urinary Tract - Primary documented in this encounter Additional Health Concerns Assessment Noted Time PHQ-9 Depression Total Score: 9 07/08/2020 3:59 PM HOUSE MOVER SUPERVISOR documented as of this encounter Care Teams Point Of Sale Associate Relationship Specialty Start Date End Date Alberto Locke M.D. PCP - General Family Medicine 04/27/19 [address] [place] [phone] documented as of this encounter
--- OUTSIDE RECORDS SUMMARY | 2022-07-08 08:49 | XMS_ITS | Encounter Summary ---
:1985 Author Organization [facility] Address [address] [place] [address] Care Team Providers Name Role Phone Alberto Locke M.D. Primary Care Provider Encounter Details Date Type Department Care Team Description 06/09/2022 Clinical Support Department of [facility] in [address] [phone] Social History Tobacco Use Types Packs/Day [...] How often do you attend bahai or baptist More than 4 time s [...] Depression Total Score: 9 07/08/2020 3:59 PM PROTOHISTORIAN documented as of this encounter Care Teams Pouncing Machine Operator Relationship Specialty Start Date End Date Alberto Locke M.D. PCP - General Family Medicine 04/27/19 [address] [place] [address] documented as of this encounter
--- OUTSIDE RECORDS SUMMARY | 2022-07-08 08:49 | XMS_ITS | Encounter Summary ---
:1985 Author Organization [facility] Address [address] [place] [address] Care Team Providers Name Role Phone Alberto Locke M.D. Primary Care Provider Encounter Details Date Type Department Care Team Description 05/13/2022 Hospital Department of [place], Frequency Urin shonna Encounter Laboratory Rusty Santiago, Medicine in [address] [address] [phone] Social History Tobacco Use Types Packs/Day Years [...] How often do you attend religion or hindu More than 4 time s [...] (05/13/2022 12:30 PM CDT) [facility] Time Signature Source Urine, Urine, 05/13/2022 RDW[facility] [...] 8.0 05/13/2022 12:51 PM CDT RDWG Specific [place] >=1.030 1.001 - 1.035 05/13/2022 12:51 PM [...] M.D. LAB URINE ORDERABLES Performing Organization Address City/[facility]/ZIP Code Phon e Number [facility]- [address] [place] [address] [facility] [place] [address] System in [place] [place] (ABNORMAL) Bacterial Culture, Aerobic + Susc, Urine (05/13/2022 12:30 PM CDT) [facility] gist Method Time Signature Urine Culture Mixed 05/14/2022 ECLR microbiota (A) 6:52 PM CDT Specimen Anatomical Collection Method Collection Time Receive d Time (Source) Location / / Volume Laterality Urine (Urine, 05/13/2022 12:30 05/13/2022 9:38 Midstream) PM CDT PM CDT Comment: Specimen Source Site: Urine Rusty Guevara M.D. LAB MICROBIOLOGY - GENE RAL ORDERABLES Performing Organization Address City/[facility] Phon e Number [facility]- [address] [place] [address] 703 [facility] [place] [address] System in [address] documented in this encounter Visit Diagnoses Diagnosis Frequency Urinary documented in this encounter Additional Health Concerns Assessment Noted Time PHQ-9 Depression Total Score: 9 07/08/2020 3:59 PM COMPO CASTER documented as of this encounter Care Teams Environmental Program Manager Relationship Specialty Start Date End Date Alberto Locke M.D. PCP - General Family Medicine 04/27/19 [address] [facility] [place] [phone] documented as of this encounter
--- OUTSIDE RECORDS SUMMARY | 2022-07-08 08:49 | XMS_ITS | Encounter Summary ---
:1985 Author Organization [facility] Address [address] [place] [address] Care Team Providers Name Role Phone Alberto Locke M.D. Primary Care Provider Reason for Referral Outpatient (Routine) - Authorized Specialty Diagnoses / Procedures Referred By Contact Refer red To Contact Diagnoses Surveillance Intrauterine Device Examination Test With Positive Result (HCC) Rusty Guevara [facility] Procedures IUD Removal M.Kelly [address] [place] [address] Referral ID Status Reason Start Date Expiration Date Visits V isits Requested Authorized [id number] Authorized 05/13/2022 05/13/2023 1 1 utpatient (Routine) - Authorized Specialty Diagnoses / Referred By Contact Referred To Procedures Contact Obstetrics and Rusty Guevara [facility] Gynecology Sera Santiago [address] [place] [address] Referral ID Status Reason Start Date Expiration Date Visits V isits Requested Authorized [id number] Authorized 05/13/2022 05/12/2025 1 1 Reason for Visit Reason Comments Follow-up Appointment Request (Routine) - Closed Specialty Diagnoses / Procedures Referred By Contact Refer red To Contact Obstetrics and Gynecology Referral ID Status Reason Start Date Expiration Date Visits Requ ested Visits Authorized [id number] Closed 05/13/2022 05/13/2023 1 Encounter Details Date Type Department Care Team Description 05/13/2022 Office Visit Department of [place], Not Reason For Visit (HCC) (Primary Dx); Obstetrics and Rusty Santiago M.D. Surveillance Intrauterine Device; Gynecology in [facility] [address] Infection Urinary Tract Acute; [place], [place] Examination Test W ith Positive Result (HCC) [address] [facility] [address] [place], [place] [phone] (Wo rk) [address] [phone] Social History Tobacco Use Types Packs/Day Years [...] How often do you attend hindu or episcopalian More than 4 time s [...] 07/2020. She denies any abdominal pain. OBJECTIVE Gas Brazer- Taryn Ruiz SERICULTURE TEACHER VITAL SIGNS Blood Pressure: (139)/(71) 139/71 Weight: [...] PM Result Value HCG, Quantitative, , P [address] (H) Urinalysis with Microscopic: Collection Time: 05/13/22 12:30 PM Result Value Source Urine, Urine, Midstream Clarity Slightly Cloudy (A) Color Yellow Blood Large (A) Nitrite Negative Leukocyte Esterase Moderate (A) Protein Trace Glucose Negative Ketones, QI(U) Negative Bilirubin Negative pH 5.5 Specific [place] >=1.030 Urobilinogen 0.2 White Blood Cells 11-20 [...] for a repeat ultrasound to confirm viability. FOREX TRADER documented in this encounter Plan of Treatment [...] Name Priority Date/Time Associated Diagnosis Comme nts SD REMOVAL OF Routine 05/13/2022 1:15 PM Surveillance Results for this INTRAUTERINE DEVICE CDT Intrauterine Device procedure are in the results Examination Test section. With Positive Result (HCC) documented in this encounter Results SD REMOVAL OF INTRAUTERINE DEVICE (05/13/2022 1:15 PM [...] Depression Total Score: 9 07/08/2020 3:59 PM HIDE SHAKER documented as of this encounter Care Teams Shear Assembler Relationship Specialty Start Date End Date Alberto Locke M.D. PCP - General Family Medicine 04/27/19 [address] [place] [address] documented as of this encounter
--- OUTSIDE RECORDS SUMMARY | 2022-07-08 08:49 | XMS_ITS | Encounter Summary ---
:1985 Author Organization [facility] Address [address] [place] [address] Care Team Providers Name Role Phone Alberto Locke M.D. Primary Care Provider Encounter Details Date Type Department Care Team Description 02/25/2022 Orders Only [facility] Sa emma Lemos M.D. Screening Lipid [address] [place] [phone] (Wo rk) Social History Tobacco Use Types [...] How often do you attend uatsdin or oriental orthodox More than 4 time [...] Depression Total Score: 9 07/08/2020 3:59 PM GENETIC ENGINEER documented as of this encounter Care Teams Light Equipment Operator Relationship Specialty Start Date End Date Alberto Locke M.D. PCP - General Family Medicine 04/27/19 [address] [place] [phone] documented as of this encounter
--- OUTSIDE RECORDS SUMMARY | 2022-07-08 08:50 | XMS_ITS | Encounter Summary ---
:1985 Author Organization [facility] Address [address] [place] [address] Care Team Providers Name Role Phone Alberto Locke M.D. Primary Care Provider Encounter Details Date Type Department Care Team Description 05/01/2021 Clinical Communication Department of [facility] Alberto Fregoso M.D. [facility], [address], [facility] [address] [place] [address] [place], [place] (Work) [phone] Social History Tobacco Use [...] How often do you attend jewish or worship More than 4 time s [...] to pay for the very basics like N[employer] hat hard 07/09/2020 food, housing, medical care, [...] the phone between 7 am-6 pm, Wednesday-Wednesday. [place]: [phone] [place]: [phone] [place]: [phone] [place]: [phone] [place]: [phone] [place]: [phone] [facility]: [phone] Stephen Noriega, [place], or [facility]: [phone] [place]:[phone] [place]: [phone] Thank you for trusting your health care to [facility]. documented in this encounter Plan of Treatment Scheduled Procedures Name Priority Associated Diagnoses Date/Time COLONOSCOPY Diarrhea documented as of this encounter Visit Diagnoses Not on filedocumented in this encounter Additional Health Concerns Assessment Noted Time PHQ-9 Depression Total Score: 9 07/08/2020 3:59 PM INSTRUCTIONAL AIDE documented as of this encounter Care Teams Heel Coverer Machine Operator Relationship Specialty Start Date End Date Alberto Locke M.D. PCP - General Family Medicine 04/27/19 [place] [phone] documented as of this encounter
--- OUTSIDE RECORDS SUMMARY | 2022-07-08 08:50 | XMS_ITS | Encounter Summary ---
:1985 Author Organization [facility] Address [address] [place] [address] Care Team Providers Name Role Phone Alberto Locke M.D. Primary Care Provider Reason for Referral Outpatient (Routine) - Closed Specialty Diagnoses / Procedures Referred By Contact Refer red To Contact Diagnoses Primary Osteoarthritis Knee Left Pain Knee Left Berny Robert [facility] [place] [facility] Procedures sxz-gebr-rtrisirs-elbow arthrocentesis: L knee joint M.D. [address] [place] [address] Referral ID Status Reason Start Date Expiration Date Visits Requ ested Visits Authorized [id number] Closed 04/23/2021 04/23/2022 1 1 Physical Therapy (Routine) - Closed Specialty Diagnoses / Procedures Referred By Contact Refer red To Contact Diagnoses Pain Knee Left Primary Osteoarthritis Knee Left Primary Osteoarthritis Knee Right Body Mass Index 60.0 To 69.9 Adult ([facility]) Berny Robert [facility] [place] [facility] Procedures PT Evaluate and treat M.D. [address] [place] [address] Referral ID Status Reason Start Date Expiration Date Visits Requ ested Visits Authorized [id number] Closed 04/23/2021 04/23/2022 1 1 Reason for Visit Outpatient (Routine) - Closed Specialty Diagnoses / Procedures Referred By Contact Refer red To Contact Orthopedic Surgery Diagnoses Pain Knee Left Suzanne Almodovar [facility] [place] [address] Referral ID Status Reason Start Date Expiration Date Visits Requ ested Visits Authorized [id number] Closed 04/14/2021 04/14/2022 1 1 Encounter Details Date Type Department Care Team Description 04/23/2021 Comprehensive Visit Department of Jakob, Primary Osteoarthritis Knee Left (Primary Dx); Orthopedic Surgery Malia Son Pain Knee Left; in [place] [facility] Primary Osteoarthritis Knee Right; [place], [place] Body Mass Index 60.0 To 69.9 Adult ([facility]) [address] [facility] [address] [place] [phone] [address] (Work) [phone] Social History Tobacco Use Types Packs/Day Years [...] M.D. - 04/23/2021 10:15 AM CDTAssociated Order(s): zxm-yiju-oucravzw-elbow arthrocentesis: L knee joint Post-Procedure Diagnose(s): Primary [...] SECTION; Surgeon: Xin De Leon M.D.; Location: [facility] OR ??? SECTION 04/12/2019 ??? ENDOSCOPIC RETROGRADE CHOLANGIOPANCREATOGRAPHY (ERCP) N/A 11/08/2017 Procedure: ENDOSCOPIC RETROGRADE CHOLANGIOPANCREATOGRAPHY; Surgeon: Rubio Baker M.D.; Location: [facility] OR ??? ESOPHAGOGASTRODUODENOSCOPY N/A 11/11/2017 Procedure: ESOPHAGOGASTRODUODENOSCOPY; Surgeon: Rubio Baker M.D.; Location: [facility] GI LAB ??? LAPAROSCOPIC APPENDECTOMY N/A 09/08/2017 Procedure: LAPAROSCOPIC APPENDECTOMY; Surgeon: Edd Moeller D.O.; Location: [facility] OR ??? LAPAROSCOPIC CHOLECYSTECTOMY WITH CHOLANGIOGRAM N/A 03/03/2018 Procedure: LAPAROSCOPIC CHOLECYSTECTOMY POSSIBLE CHOLANGIOGRAM; Surgeon: Edd Moeller D.O.; Location: [facility] OR ??? OTHER CONVERTED SHX [...] Index 60.0 To 69.9 Adult ([facility]) Discussed diagnosis and natural history of osteoarthritis. Both surgical and conservative treatment options were discussed today, and recommendation was made for conservative treatment consisting of activity modifications, weight loss, pain management with NSAIDs and/or Tylenol, and intermittent intra-articular corticosteroid or viscosupplementation injections. After discussion, patient was in agreement with plan.She is going to take ppnn-rmw-lvliifg pain medications on an as-needed basis for [...] Name Priority Date/Time Associated Diagnosis Comme nts [place] ARTHCS ASP/INJ Routine 04/23/2021 10:41 Primary Osteoarthri tis Results for this MJR JT WO US AM CDT Knee Left procedure are in Pain Knee Left the results section. documented in this encounter Results [place] ARTHCS ASP/INJ MJR JT WO US (04/23/2021 [...] Total Score: 9 07/08/2020 3:59 PM SUPERVISOR ASSEMBLY documented as of this encounter Care Teams Fuel System Maintenance Worker Relationship Specialty Start Date End Date Alberto Locke M.D. PCP - General Family Medicine 04/27/19 [address] [place] [address] documented as of this encounter
--- OUTSIDE RECORDS SUMMARY | 2022-07-08 08:50 | XMS_ITS | Encounter Summary ---
:1985 Author Organization [facility] Address [address] [place] [address] Care Team Providers Name Role Phone Alberto Locke M.D. Primary Care Provider Reason for Visit Reason Comments Urinary Tract Infection pt reports painful urination , urgency, and pressure Encounter Details Date Type Department Care Team Description 04/12/2021 Emergency [place] Emergency Berny Garcia Infabi garcia Urinary Tract Department Sera (Primary Dx) [address] [facility] [address] [place] [phone] (Wo rk) Social History Tobacco Use Types [...] How often do you attend adventist or denominational More than 4 time s [...] + Susc, Urine (04/12/2021 8:49 PM CDT) [facility] gist Method Time Signature Urine Culture [...] City/State/ZIP Code Phon e Number [facility]- [address] [place] [address] 57 [address] [facility] [address] [address] [place] [address] (ABNORMAL) Microscopic Automated (04/12/2021 8:49 [...] City/State/ZIP Code Phon e Number [facility]- [address] [place], [place] [address] [place] [address] System in [place] [address] (ABNORMAL) Urinalysis with Microscopic if Indicated (04/12/2021 [...] 8.0 04/12/2021 9:03 PM CDT RDWG Specific [place] 1.022 1.001 - 1.035 04/12/2021 9:03 PM [...] City/State/ZIP Code Phon e Number [facility]- [address] [place], [place] [address] [place] [address] System in [place] [address] documented in this encounter Visit Diagnoses Diagnosis Infection Urinary Tract - Primary documented in this encounter Additional Health Concerns Assessment Noted Time PHQ-9 Depression Total Score: 9 07/08/2020 3:59 PM NASCAR RACER documented as of this encounter Care Teams Senior Sales Operations Analyst Relationship Specialty Start Date End Date Alberto Locke M.D. PCP - General Family Medicine 04/27/19 [address] [place] [address] documented as of this encounter
--- OUTSIDE RECORDS SUMMARY | 2022-07-08 08:50 | XMS_ITS | Encounter Summary ---
:1985 Author Organization [facility] Address [address] [place] [address] Care Team Providers Name Role Phone Alberto Locke M.D. Primary Care Provider Reason for Visit Reason Comments Results [facility] Encounter Details Date Type Department Care Team Description 01/18/2022 Clinical Communication Division of Tracy Wolf ([facility]) Community Internal Kimberli Purdy R.N. [facility] 200 [facility] [place] [address] [place] [phone] 200 [facility] ([facility] [place] [id number] Social History Tobacco Use Types Packs/Day Years [...] How often do you attend hoahaoism or baptist More than 4 time s [...] to pay for the very basics like [employer] hat hard 07/09/2020 food, housing, medical care, [...] 3:55 PM CDT M[facility]CT TELEPHONE COMMUNICATION NOTE Housekeeper Manager: None The patient was called regarding a [...] your primary care provider or present to [facility] emergency department for evaluation. Treatment Options Discussion [...] effects may happen. You would need to pharmacy picking technician and start the medication within 5 days of symptom onset, and you would take the medication twice a day for 5 days. You would need to have someone who is not in isolation or quarantine for COVID-19 pharmacy picking technician the prescription at a [facility] pharmacy. The medication is provided at [...] effects of the drug on milk production. [facility] advises that mothers should pump and [...] to decide.The patient was counselled to call [facility] at [phone] if they change their mind. Reviewed that [...] references were used: Nursing or Provider judgement, [facility] workflow, [facility] Protocols Kimberli Wolf R.N. Mobile COVID Care Team [facility] and [facility] Telephone Encounter - Kimberli Wolf R.N. - [...] for: Paxlovid and Molnupiravir. Kimberli Wolf R.N. Mobile COVID Care Team and Mobile COVID Infusion Therapy Team [facility] and [facility] documented in this encounter Plan of Treatment Scheduled Procedures Name Priority Associated Diagnoses Date/Time COLONOSCOPY Diarrhea documented as of this encounter Visit Diagnoses Not on filedocumented in this encounter Additional Health Concerns Infection Onset Date Last Indicated Resolved Time COVID19 01/16/2022 01/16/2022 02/05/2022 9:06 AM CDT Assessment Noted Time PHQ-9 Depression Total Score: 9 07/08/2020 3:59 PM BUILDINGS AND GROUNDS SUPERINTENDENT documented as of this encounter Care Teams Rn Case Manager Relationship Specialty Start Date End Date Alberto Locke M.D. PCP - General Family Medicine 04/27/19 [address] [place] [address] documented as of this encounter
--- OUTSIDE RECORDS SUMMARY | 2022-07-08 08:50 | XMS_ITS | Encounter Summary ---
:1985 Author Organization [facility] Address [address] [place] [address] Care Team Providers Name Role Phone Alberto Locke M.D. Primary Care Provider Encounter Details Date Type Department Care Team Description 11/29/2020 Immunization Department of [facility] Ian Hays, Medicine, Naoma M.DBrittaney Professional Building, in [address] [place], [place] [address] [address] [place] [address] [phone] Social History Tobacco Use Types Packs/Day Years [...] How often do you attend yarsani or baptism More than 4 time s [...] Depression Total Score: 9 07/08/2020 3:59 PM ECOSYSTEM ECOLOGY PROFESSOR documented as of this encounter Care Teams Montessori Toddler Teacher Relationship Specialty Start Date End Date Alberto Locke M.D. PCP - General Family Medicine 04/27/19 [address] [place] [address] documented as of this encounter
--- OUTSIDE RECORDS SUMMARY | 2022-07-08 08:50 | XMS_ITS | Encounter Summary ---
:1985 Author Organization [facility] Address [address] [place] [address] Care Team Providers Name Role Phone Alberto Locke M.D. Primary Care Provider Reason for Visit Reason Comments Immunizations flu Encounter Details Date Type Department Care Team Description 07/11/2021 Clinical Support Department of Pediatrics Sa griffin Baxter, in [facility] [address] [facility] [address] [place] [address] [place], [place] [phone] [address] Social History Tobacco Use Types Packs/Day [...] How often do you attend anglican or spiritism More than 4 time s [...] Depression Total Score: 9 07/08/2020 3:59 PM IMPREGNATOR ELECTROLYTIC CAPACITORS documented as of this encounter Care Teams Truck Driver Helper Relationship Specialty Start Date End Date Alberto Locke M.D. PCP - General Family Medicine 04/27/19 [address] [place] [address] documented as of this encounter
--- OUTSIDE RECORDS SUMMARY | 2022-07-08 08:50 | XMS_ITS | Encounter Summary ---
:1985 Author Organization [facility] Address [address] [place] [address] Care Team Providers Name Role Phone Alberto Locke M.D. Primary Care Provider Reason for Referral Specialty Diagnoses / Procedures Referred By Contact Refer red To Contact Alberto Locke M.D. [facility] Region [address] [place] [address] Referral ID Status Reason Start Date Expiration Date Visits Requ ested Visits Authorized NT ACCOUNT MANAGER Encounter Details Date Type Department Care Team Description 07/15/2021 Orders Only [facility] SEMN PCP [facility] Frankie Locke M.D. [address] [place], [place] [address] (Wo rk) Social History [...] How often do you attend voodoo or yazidi More than 4 time s [...] Depression Total Score: 9 07/08/2020 3:59 PM CLIENT ACCOUNT MANAGER documented as of this encounter Care Teams Senior Sales Assistant Relationship Specialty Start Date End Date Alberto Locke M.D. PCP - General Family Medicine 04/27/19 [address] [place] [phone] documented as of this encounter
--- OUTSIDE RECORDS SUMMARY | 2022-07-08 08:50 | XMS_ITS | Encounter Summary ---
:1985 Author Organization [facility] Address [address] [place] [address] Care Team Providers Name Role Phone Alberto Locke M.D. Primary Care Provider Encounter Details Date Type Department Care Team Description 05/12/2021 Clinical Communication Department of [facility] Alberto Fregoso M.D. [facility], [address], [facility] [address] [place] [address] [place], [place] (Work) [phone] Social History Tobacco Use [...] to pay for the very basics like C[employer] hat hard 07/09/2020 food, housing, medical care, [...] COVID19 Pending 07/15/2021 07/15/2021 07/15/2021 8:38 PM REHABILITATION AIDE/SCHEDULER Assessment Noted Time PHQ-9 Depression Total Score: 9 07/08/2020 3:59 PM REHABILITATION AIDE/SCHEDULER documented as of this encounter Care Teams Hvac Instructor Relationship Specialty Start Date End Date Alberto Locke M.D. PCP - General Family Medicine 04/27/19 [address] [place] [phone] documented as of this encounter
--- OUTSIDE RECORDS SUMMARY | 2022-07-08 08:50 | XMS_ITS | Encounter Summary ---
:1985 Author Organization [facility] Address [address] [place] [address] Care Team Providers Name Role Phone Alberto Locke M.D. Primary Care Provider Reason for Referral Outpatient (Routine) - Authorized Specialty Diagnoses / Procedures Referred By Contact Refer red To Contact Family Medicine Diagnoses Diarrhea Pain Generalized Abdominal Nausea Alaina Stratton APRN [facility] C.N.P., D.N.P. [address] [place] [address] Referral ID Status Reason Start Date Expiration Date Visits V isits Requested Authorized [id number] Authorized 02/17/2022 02/17/2023 1 1 Reason for Visit Reason Comments Symptom Assessment Encounter Details Date Type Department Care Team Description 02/17/2022 Office Visit Department of Alaina Stratton Diarrhea (Pr imary Dx); Internal Medicine in JOSEFA Bustillos, C.N.P., [place]; [place], [place] D.N.P. Pain Generalized Abdominal; [address] Shortness Of Breath; [place], [place] Gastroesophagea l Reflux Disease Without Esophagitis [phone] Social History Tobacco Use Types Packs/Day Years [...] How often do you attend anabaptism or religion More than 4 time s [...] when she tries to eat. Recommended trying [id number] Prilosec daily for up to 30 days. [...] Name Type Priority Associated Diagnoses Order [facility] Medicine Outpatient Referral Routine Diarrhea Expected: [...] Panel, PCR, Feces (02/17/2022 7:48 PM CDT) [facility] Method Time Signature Specimen Source [...] using the FDA-cl eared FilmArray GI Panel ([employer] Specimen Anatomical Collection Method Collection Time Receive d Time (Source) Location / / Volume Laterality Stool (Stool) 02/17/2022 7:48 PM 02/18/20 7:48 CDT PM CDT Alaina Stratton APRN C.N.P., D.N.P. LAB MICROBIOLOGY - GENERAL ORDERABLES Performing Organization Address City/State/ZIP Code Phon e Number [facility] [address] [place] [address] [address] [facility] [place] [address] System in [address] Test, POCT, Urine (lab) (02/17/2022 7:47 PM CDT) athologist Signature Negative 02/17/2022 RDW[facility] Test, POCT, U 7:52 PM CDT Specimen Anatomical Collection Method Collection Time Receive d Time (Source) Location / / Volume Laterality Urine 02/17/2022 7:47 PM 7:47 CDT PM CDT Kendal Rosenberg APRNN.Marcio, D.N.P. LAB POCT ORDERABL ES - DEVICE Performing Organization Address City/State/ZIP Code Phon e Number [facility]- [address] [place], [place] [address] [facility] [place] [place] [address] System in [place] [address] NT-Pro B-Type Natriuretic Peptide (BNP) (02/17/2022 6:38 [...] City/State/ZIP Code Phon e Number [facility]- [address] [place], [place] [address] [facility] [place] [address] System in [place] [address] (ABNORMAL) CRP (C-Reactive Protein) (02/17/2022 6:38 PM [...] City/State/ZIP Code Phon e Number [facility]- [address] [place], [place] [address] [facility] [place] [address] System in [place] [address] [place] [address] Lipase (02/17/2022 6:38 PM CDT) athologist [facility] Lipase, P 22 13 - 60 U/L 02/17/2022 7:10 RDWG PM CDT Specimen Anatomical Collection Method Collection Time Receive d Time (Source) Location / / Volume Laterality Blood (Blood, 02/17/2022 6:38 PM 02/18/20 22 6:44 Venous) CDT PM CDT Alaina Stratton APRN, Marlyn.N.P., D.N.P. LAB BLOOD ADD-ON Performing Organization Address City/State/ZIP Code Phon e Number [facility]- [address] [place], [place] [address] [facility] [place] [address] System in [place] [facility] [address] Comprehensive Metabolic Panel (02/17/2022 6:38 PM CDT) [...] CDT eGFR-Black/Afric >90 >=60 02/17/2022 RDWG an Trinidadian mL/min/BSA 7:10 PM CDT Comment: ----ADDITIONAL INFORMATION---- [...] City/State/ZIP Code Phon e Number [facility]- [address] [place] [address] [facility] [place] [address] System in [place] [address] (ABNORMAL) CBC with Differential, Blood (02/17/2022 6:38 PM CDT) [facility] Method Time Signature Hemoglobin 15.5 [...] City/State/ZIP Code Phon e Number [facility]- [address] [place], [place] [address] [address] [place] [address] System in [place] [address] [address] documented in this encounter Visit Diagnoses Diagnosis Diarrhea - Primary Nausea Pain Generalized Abdominal Shortness Of Breath Gastroesophageal Reflux Disease Without Esophagitis documented in this encounter Additional Health Concerns Assessment Noted Time PHQ-9 Depression Total Score: 9 07/08/2020 3:59 PM HOSPITAL RECEPTIONIST documented as of this encounter Care Teams Management Intern Relationship Specialty Start Date End Date Alberto Locke M.D. PCP - General Family Medicine 04/27/19 [address] [place] [address] documented as of this encounter
--- OUTSIDE RECORDS SUMMARY | 2022-07-08 08:50 | XMS_ITS | Encounter Summary ---
:1985 Author Organization [facility] Address [address] [place] [address] Care Team Providers Name Role Phone Alberto Locke M.D. Primary Care Provider Reason for Visit Reason Comments Sore Throat Shortness of Breath Encounter Details Date Type Department Care Team Description 05/19/2021 Emergency [place] Emergency Berny Garcia, Tonsi llitis Acute Department M.DBrittaney (Primary Dx) [address] [facility] [address] [place] [phone] (Wo rk) Social History Tobacco Use Types [...] How often do you attend jain or methodist More than 4 time s [...] cannot be sent through Care Everywhere. Tonsillitis (Spanish)documented in this encounter Medications at Time of [...] Organization Address City/State/ZIP Code Phon e Number [facility]- [address] [place] [address] [address] [place] [address] System in [place] [address] [place] [address] (ABNORMAL) Comprehensive Metabolic Panel (05/19/2021 9:45 PM [...] CDT eGFR-Black/Afri >90 >=60 05/19/[address] [place] mL/min/BSA 10:20 PM CDT Comment: ----ADDITIONAL INFORMATION---- [...] Organization Address City/State/ZIP Code Phon e Number [facility]- [address] [place], [place] [address] [place] [address] System in [place] [address] (ABNORMAL) CBC with Differential, Blood (05/19/2021 9:45 PM CDT) [facility] Method Time Signature Hemoglobin 14.0 11.6 - [...] LAB BLOOD ADD-ON Performing Organization Address City/State/[facility] Phon e Number [facility]- [address] [place], [place] [address] [address] [place] [address] System in [place] [address] SARS Coronavirus-2 RNA, V (05/19/2021 [...] pe rformed using the Aptima SARS-CoV-2 assay ([employer] on the [employer] tem under emergency use authorization (EUA) by the U.S. Food and Drug Administ ration. Fact sheets for this EUA assay can be fo und at the following links: For Healthcare Providers: https://www.fd a.gov/media/477886/download For Patients: https://www.fda.gov/media/ 023337/download Specimen Anatomical Collection Method Collection Time Receive d Time (Source) Location / / Volume Laterality Varies 05/19/2021 9:44 PM CDT 11:00 AM CDT Berny Garcia M.D. LAB MICROBIOLOGY - GENERAL O RDERABLES Performing Organization Address City/State/ZIP [facility] Phon e Number [facility]- [address] [place] [address] [phone] [facility] [place] [address] System [address] Streptococcus Group A, Molecular Detection, PCR, [...] Organization Address City/State/ZIP Code Phon e Number [facility]- [address] [place], [place] [address] [address] [place] [address] System in [place] [address] documented in this encounter Visit Diagnoses Diagnosis Tonsillitis Acute - Primary documented in this encounter Additional Health Concerns Infection Onset Date Last Indicated Resolved Time COVID19 Pending 05/19/2021 05/19/2021 05/19/2021 10:24 PM CDT COVID19 Pending 05/19/2021 05/19/2021 05/20/2021 3:13 PM CDT Assessment Noted Time PHQ-9 Depression Total Score: 9 07/08/2020 3:59 PM PARENT COACH documented as of this encounter Care Teams Seo Coordinator Relationship Specialty Start Date End Date Alberto Locke M.D. PCP - General Family Medicine 04/27/19 [address] [phone] documented as of this encounter
--- OUTSIDE RECORDS SUMMARY | 2022-07-08 08:50 | XMS_ITS | Encounter Summary ---
:1985 Author Organization [facility] Address [address] [place] [address] Care Team Providers Name Role Phone Alberto Locke M.D. Primary Care Provider Reason for Referral Outpatient (Routine) - Closed Specialty Diagnoses / Procedures Referred By Contact Refer marko To Contact Diagnoses Edema Dyspnea On Exertion Shortness Of Breath Nichole Maria M.D. [facility] [place] [facility] Procedures DX Chest AP or PA and Lateral 2 Views [address] [address] Referral ID Status Reason Start Date Expiration Date Visits Requ ested Visits Authorized [id number] Closed 11/04/2021 11/04/2022 1 1 Reason for Visit Outpatient (Routine) - Closed Specialty Diagnoses / Procedures Referred By Contact Refer marko To Contact Diagnoses Edema Dyspnea On Exertion Shortness Of Breath Nichole Maria M.D. [facility] [place] [facility] Procedures DX Chest AP or PA and Lateral 2 Views [address] [place] [address] Referral ID Status Reason Start Date Expiration Date Visits Requ ested Visits Authorized [id number] Closed 11/04/2021 11/04/2022 1 1 Encounter Details Date Type Department Care Team Description 11/04/2021 Hospital Encounter Department of Nichole Maria; Radiology in Marko Barrett M.D. Dyspnea On Exertion; [place] [address]los Shortness Of Breath [address] [place] [phone] Social History Tobacco Use Types Packs/Day [...] How often do you attend catholic or zoroastrianism More than 4 time s [...] Total Score: 9 07/08/2020 3:59 PM MANAGER BRIDGE documented as of this encounter Care Teams Cotton Ball Bagger Relationship Specialty Start Date End Date Alberto Locke M.D. PCP - General Family Medicine 04/27/19 [place] [phone] documented as of this encounter
--- OUTSIDE RECORDS SUMMARY | 2022-07-08 08:50 | XMS_ITS | Encounter Summary ---
:1985 Author Organization [facility] Address [address] [place] [address] Care Team Providers Name Role Phone Alberto Locke M.D. Primary Care Provider Reason for Visit Reason Comments Outpatient COVID-19 Testing Encounter Details Date Type Department Care Team Description 07/15/2021 Emergency [place] [facility] [address] [place] [phone] Social History Tobacco Use Types [...] How often do you attend temple or hindu More than 4 time s [...] - - Pulse 101 07/15/2021 8:01 PM EXTENSION PROFESSOR Temperature - - Respiratory Rate 18 07/15/2021 8:01 PM EXTENSION PROFESSOR Oxygen Saturation 94% 07/15/2021 8:01 PM EXTENSION PROFESSOR Inhaled Oxygen Concentration - - Weight - - Height - - Body Mass Index - - documented in this encounter Discharge Instructions Discharge InstructionsMichelle Kennedy R.N. - 07/15/2021 8:22 PM CST COVID-19 disease from Coronavirus is rapidly changing. We recognize the uncertainty you may feel at this time, and want to assure you that [facility] is committed to your health and safety. To stay informed, it is highly recommended you seek information from a website that has the most accurate and recent information such as the CDC: https://www.cdc.gov/coronavirus/2019-ncov/downloads/lgup-djwv-4493- wTlH-xmav-lwbmz.pdf [place] Messages from the CDC link above. [...] patients will be contacted by a [facility] provider. NSION PROFESSOR documented in this encounter Medications at Time [...] Result s for this COV-2, PCR, RAPID,V EXTENSION PROFESSOR procedur e are in the results section. documented in this encounter Results Influenza A/B, SARS CoV-2, PCR, Rapid, Varies Symptomatic (07/15/2021 8:11 PM EXTENSION PROFESSOR) [facility] gist Method Time Signature Influenza A, Negative Negative 07/15/2021 CNFL PCR, Rapid, V 8:38 PM EXTENSION PROFESSOR Influenza B, Negative Negative 07/15/2021 CNFL PCR, Rapid, V 8:38 PM EXTENSION PROFESSOR SARS CoV-2, Undetected Undetected 07/15/2021 CNFL PCR, Rapid, V 8:38 PM EXTENSION PROFESSOR Comment: ----ADDITIONAL INFORMATION---- This RT-PCR test was performed using the Javy SARS-CoV-2 and Influenza A/B Reagent assay from [employer], which has received Emergency Use Authori zation(EUA) by the U.S. Food and Drug Administration . Fact sheets for this Emergency Use Autho rization (EUA) assay can be found at the following link s: For Healthcare Providers: https://www.fda.gov/media/070539/downloa d For Patients: https://www.fda.gov/media/743377/downloa d Infl A/B, SARS CoV-2, PCR, Source Swab, Nasopharynx 07/15/2021 8:38 PM EXTENSION PROFESSOR CNFL Specimen Anatomical Collection Method Collection Time Receive d Time (Source) Location / / Volume Laterality Varies 07/15/2021 8:11 PM 8:17 (Nasopharynx) EXTENSION PROFESSOR PM EXTENSION PROFESSOR Cedric Bush P.A.-C. LAB MICROBIOLOGY - GENERAL O RDERABLES Performing Organization Address City/State/ZIP Code Phon e Number [facility]- [address] [place] [address] [facility] [place] [address] System [address] documented in this encounter Visit Diagnoses Not on filedocumented in this encounter Additional Health Concerns Infection Onset Date Last Indicated Resolved Time COVID19 Pending 07/15/2021 07/15/2021 07/15/2021 8:38 PM EXTENSION PROFESSOR Assessment Noted Time PHQ-9 Depression Total Score: 9 07/08/2020 3:59 PM EXTENSION PROFESSOR documented as of this encounter Care Teams Oyster Preparer Relationship Specialty Start Date End Date Alberto Locke M.D. PCP - General Family Medicine 04/27/19 [address] [place] [phone] documented as of this encounter
--- OUTSIDE RECORDS SUMMARY | 2022-07-08 08:50 | XMS_ITS | Encounter Summary ---
:1985 Author Organization [facility] Address [address] [place] [address] Care Team Providers Name Role Phone Alberto Locke M.D. 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 PCP - General Family Medicine 04/27/19 [address] [place] [phone] documented as of this encounter
--- OUTSIDE RECORDS SUMMARY | 2022-07-08 08:50 | XMS_ITS | Encounter Summary ---
:1985 Author Organization [facility] Address [address] [place] [address] Care Team Providers Name Role Phone Alberto Locke M.D. Primary Care Provider Reason for Visit Reason Comments Vomiting Diarrhea COVID Nurse Line Encounter Details Date Type Department Care Team Description 02/17/2022 Nurse Triage Department of [facility] Gina Su V omiting; Diarrhea; Medicine, [place] O, R.N. COVID Nurse Line Clinic, in [place], [address] [place] [address] 701 [facility] [address] [place] [address] Social History Tobacco Use Types [...] How often do you attend jewish or nondenominational More than 4 time s [...] 3 days. Patient was warm transferred to [place] at the clinic for further assistance. Reason for Disposition ? ? [1] MILD vomiting with diarrhea AND [2] present > 5 days Protocols used: [id number] Care Advice Patient/Caregiver understands and will follow [...] Powerade). * Other options: 1/2 strength flat lemon-[place] soda or yenni stewart. * After 4 [...] RSV and Strep Select appropriate region: : [place] Are all of the following Strep criteria [...] frequently with soap and water, use hand leasing associate if soap and water aren't available. -Wear [...] care: Yes The following references were used: [facility] novel coronavirus (COVID- 19) resources documented in this encounter Plan of Treatment Scheduled Procedures Name Priority Associated Diagnoses Date/Time COLONOSCOPY Diarrhea documented as of this encounter Visit Diagnoses Not on filedocumented in this encounter Additional Health Concerns Assessment Noted Time PHQ-9 Depression Total Score: 9 07/08/2020 3:59 PM SEAMER ELASTIC BAND documented as of this encounter Care Teams Developer Automatic Relationship Specialty Start Date End Date Alberto Locke M.D. PCP - General Family Medicine 04/27/19 [address] [place] [address] documented as of this encounter
--- OUTSIDE RECORDS SUMMARY | 2022-07-08 08:50 | XMS_ITS | Encounter Summary ---
:1985 Author Organization [facility] Address [address] [place] [address] Care Team Providers Name Role Phone Alberto Locke M.D. Primary Care Provider Reason for Visit Reason Comments Leg Swelling COVID Nurse Line Encounter Details Date Type Department Care Team Description 11/04/2021 Nurse Triage Department of [facility] Rylee Calvert, Leg Swe lling; [facility], [facility], in [place], [address] [place] [address] [place] [address] [place] [address] [phone] Social History Tobacco Use Types Packs/Day Years [...] How often do you attend jainism or yazidi More than 4 time s [...] to pay for the very basics like appening hat hard 07/09/2020 food, housing, medical care, [...] Patient was warm transferred to [facility] at the clinic for further assistance. COVID-19 [...] frequently with soap and water, use hand blanking machine operator if soap and water aren't available. -Wear [...] care: Yes The following references were used: [facility] novel coronavirus (COVID- 19) resources Reason for Disposition ??? 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 PCP - General Family Medicine 04/27/19 [address] [address] documented as of this encounter
--- OUTSIDE RECORDS SUMMARY | 2022-07-08 08:50 | XMS_ITS | Encounter Summary ---
:1985 Author Organization [facility] Address [address] [place] [address] Care Team Providers Name Role Phone Alberto Locke M.D. Primary Care Provider Reason for Referral Outpatient (Routine) - Authorized Specialty Diagnoses / Procedures Referred By Contact Refer red To Contact Diagnoses Edema Dyspnea On Exertion Shortness Of Breath Nichole Maria M.D. [facility] Procedures ECG 12 Lead [address] [place] [phone] Referral ID Status Reason Start Date Expiration Date Visits V isits Requested Authorized [id number] Authorized 11/04/2021 11/04/2022 1 1 Outpatient (Routine) - Closed Specialty Diagnoses / Procedures Referred By Contact Refer red To Contact Diagnoses Edema Dyspnea On Exertion Shortness Of Breath Nichole Maria M.D. [facility] Procedures DX Chest AP or PA and Lateral 2 Views [address] [place] [address] Referral ID Status Reason Start Date Expiration Date Visits Requ ested Visits Authorized [id number] Closed 11/04/2021 11/04/2022 1 1 Reason for Visit Reason Comments Edema Bilateral lower legs, with d izziness. Ongoing x several weeks Appointment Request (Routine) - Closed Specialty Diagnoses / Procedures Referred By Contact Refer red To Contact Family Medicine Referral ID Status Reason Start Date Expiration Date Visits Requ ested Visits Authorized [id number] Closed 11/04/2021 11/04/2022 1 1 Encounter Details Date Type Department Care Team Description 11/04/2021 Office Visit Department of Nichole Maria, Edema ( Primary Dx); Internal Medicine in M.D. Dyspnea On Exertion; [place], [place] [address] Shortness Of Breath; [address] [place], [place] Headache New; [place] [address] Apnea Sleep Obstructive [address] [phone] Social History Tobacco Use Types Packs/Day Years [...] How often do you attend hoahaoism or samaritan More than 4 time s [...] section within an hour of betting to [facility]. That was 3 years ago. She [...] concerning arrhythmias or atypical ST segmentchanges or PA interval issues. CXR per my personal review, [...] and afebrile. Suspect benign. Conservative therapies with cdoy-pwm-mozwakv meds, stretching, relaxation ensuring adequate hydration and [...] d isease. Nichole [facility] ECG 12 Lead (11/04/2021 3:40 PM CDT) P athologist Signature Ventricular Rate 82 BPM MUSE ECG/Min PA Interval 146 ms MUSE QRSD Interval 74 ms MUSE QT Interval 360 ms MUSE QTC Interval 420 ms MUSE P [place] 49 degrees MUSE R [place] 55 degrees MUSE T Wave [place] 56 degrees MUSE Specimen Anatomical Collection Method [...] Organization Address City/State/ZIP Code Phon e Number [facility]- [address] [place], [place] [address] [facility] [place] [facility] [place] [address] System in [place] [address] hCG (Human Chorionic Gonadotropin), [...] Organization Address City/State/ZIP Code Phon e Number [facility]- [address] [place], [place] [address] [place] [address] System in [place] [address] [place] T4 (Thyroxine), Free (11/04/2021 3:23 PM CDT) [...] Organization Address City/State/ZIP Code Phon e Number [facility]- [address] [place], [place] [address] [facility] [place] [facility] [place] [address] System in [place] [address] [place] S-TSH (Thyroid-Stimulating Hormone - Sensitive) (11/04/2021 3:23 PM CDT) athologist Signature TSH, Sensitive 0.9 0.3 - 4.2 11/04/2021 RDWG mIU/L 4:03 PM CDT Specimen Anatomical Collection Method Collection Time Receive d Time (Source) Location / / Volume Laterality Blood (Blood, 11/04/2021 3:23 PM 11/05/19 3:29 Venous) CDT PM CDT Nichole Maria M.D. LAB BLOOD ADD-ON Performing Organization Address City/State/ZIP Code Phon e Number [facility]- [address] [place], [place] [address] [facility] [place] [facility] [place] [address] System in [place] [address] [place] [address] [place] D-Dimer (11/04/2021 3:23 PM CDT) athologist Signature [...] Organization Address City/State/ZIP Code Phon e Number [facility]- [address] [place], [place] [address] [facility] [place] [address] System in [place] [address] [place] Basic Metabolic Panel (11/04/2021 3:23 PM CDT) [...] CDT eGFR-Black/Afric >90 >=60 11/04/2021 RDW[facility] an Singaporean mL/min/BSA 3:51 PM CDT Comment: ----ADDITIONAL INFORMATION---- [...] Organization Address City/State/ZIP Code Phon e Number [facility]- [address] [place], [place] [address] [facility] [place] [facility] [place] [facility] [place] [address] System in [place] [address] (ABNORMAL) CBC with Differential, Blood (11/04/2021 3:23 PM CDT) [facility] Method Time Signature Hemoglobin 14.8 11.6 - [...] Organization Address City/State/ZIP Code Phon e Number [facility]- [address] [place], [place] [address] [place] [address] System in [place] [address] [place] NT-Pro B-Type Natriuretic Peptide (BNP) (11/04/2021 3:23 [...] supplements. ??If the result does not [facility] clinical observations, repeat testing after patient refrains fr om the use of supplements for at least 12 hours. Specimen Anatomical Collection Method Collection Time Receive d Time (Source) Location / / Volume Laterality Blood (Blood, 11/04/2021 3:23 PM 11/05/19 3:29 Venous) CDT PM CDT Nichole Maria M.D. 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 PCP - General Family Medicine 04/27/19 [address] [place] [address] documented as of this encounter
--- OUTSIDE RECORDS SUMMARY | 2022-07-08 08:50 | XMS_ITS | Encounter Summary ---
:1985 Author Organization [facility] Address [address] [place] [address] Care Team Providers Name Role Phone Alberto Locke M.D. 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 PCP - General Family Medicine 04/27/19 [place] [address] documented as of this encounter
--- OUTSIDE RECORDS SUMMARY | 2022-07-08 08:50 | XMS_ITS | Encounter Summary ---
:[address] [facility] Address [address] [place] [address] Care Team Providers Name Role Phone Alberto Locke M.D. Primary Care Provider Reason for Visit Reason Onset Date Comments Testing For Upper Respiratory Virus Symptoms 01/16/2022 Encounter Details Date Type Department Care Team Description 01/16/2022 External Outreach Department of [facility] Yamel Collins Contact With And (Suspected) Exposure To COVID-19; Medicine, [place] T, P.A.-C. Infection Upper Respiratory Clinic, in [address] [address] [place], [place] [phone] [address] (Work) [phone] Social History Tobacco Use Types Packs/Day Years [...] How often do you attend muslim or bahai More than 4 time s [...] coordinate the care. For questions, contact the [place] Covid Care Team ([facility]): Pager: [phone] In basket: P RST/[facility] COVID-19 POSITIVE Covid Care e-consult NOTE: At the time of testing, patients are instructed to obtain the result by calling the [employer] result line or by checking their [...] RNA, V Symptomatic (01/16/2022 8:39 AM CDT) [facility] Method Time Signature SARS-CoV-2 Swab, 01/17/2022 ECLR Specimen Nasopharynx 8:57 PM CDT Source SARS CoV-2 Detected (A) Undetected 01/17/2022 ECLR RNA, TMA 8:57 PM CDT Comment: SARS-CoV-2 RNA present. ----ADDITIONAL INFORMATION---- This molecular amplification test was pe rformed using the Aptima SARS-CoV-2 assay ([employer] on the Hey[employer]ub[employer] tem under emergency use authorization (EUA) by the U.S. Food and Drug Administ ration. Fact sheets for this EUA assay can be fo und at the following links: For Healthcare Providers: https://www.[employer] a.gov/media/890384/download For Patients: https://www.fda.gov/media/ 018979/download Specimen Anatomical Collection Method Collection Time Receive d Time (Source) Location / / Volume Laterality Varies 01/16/2022 8:39 AM 4:18 (Nasopharynx) CDT PM CDT Venu Collins P.A.-C. LAB MICROBIOLOGY - GENERAL O BOBBY Performing Organization Address City/State/ZIP Code Phon e Number 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 PCP - General Family Medicine 04/27/19 [address] [place] [address] documented as of this encounter
--- OUTSIDE RECORDS SUMMARY | 2022-07-08 08:50 | XMS_ITS | Encounter Summary ---
:1985 Author Organization [facility] Address [address] [place] [address] Care Team Providers Name Role Phone Alberto Locke M.D. Primary Care Provider Reason for Referral Outpatient (Routine) - Closed Specialty Diagnoses / Procedures Referred By Contact Refer janell To Contact Orthopedic Surgery Diagnoses Pain Knee Left Suzanne Almodovar [facility] P.A.-C. [address] [place] [address] Referral ID Status Reason Start Date Expiration Date Visits Requ ested Visits Authorized [id number] Closed 04/14/2021 04/14/2022 1 1 Scheduling Instructions Ortho internal referral panel order, bobbi ging before Consult visit Reason for Visit Reason Comments Leg Pain Left Appointment Request (Routine) - Closed Specialty Diagnoses / Procedures Referred By Contact Refer janell To Contact Family Medicine Referral ID Status Reason Start Date Expiration Date Visits Requ ested Visits Authorized [id number] Closed 04/14/2021 04/14/2022 1 1 Encounter Details Date Type Department Care Team Description 04/14/2021 Office Visit Urgent Care in [facility] Suzanne Almodovar Pain Knee Left [place], [place] Nena, P.A.-C. (Primary Dx) [address] [facility] [address] [place] [phone] Social History Tobacco Use Types Packs/Day [...] How often do you attend congregational or methodist More than 4 time s [...] biking or low impact water aerobics. ?? Pvkb-mal-gtwttoy and prescription medications. Your health care provider may recommend zolx-vvq-asbwewu medications and prescribe medications to help with [...] with your health care provider. ? 2014 [facility] [place] for Medical Education [employer] Research (MER). All rights reserved. 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 PCP - General Family Medicine 04/27/19 [address] [place] [phone] documented as of this encounter
--- OUTSIDE RECORDS SUMMARY | 2022-07-08 08:50 | XMS_ITS | Encounter Summary ---
:1985 Author Organization [facility] Address [address] [place] [address] Care Team Providers Name Role Phone Alberto Locke M.D. Primary Care Provider Encounter Details Date Type Department Care Team Description 01/16/2022 Admin Visit Department of [facility] Ian Hays, [facility] [address] [place] [address] [address] [place] [phone] (Wo rk) Social History Tobacco Use Types [...] How often do you attend pentecostal or advent More than 4 time s [...] to pay for the very basics like EpiEP hat hard 07/09/2020 food, housing, medical care, [...] Depression Total Score: 9 07/08/2020 3:59 PM TYPE COPY EXAMINER documented as of this encounter Care Teams Coremaking Supervisor Relationship Specialty Start Date End Date Alberto Locke M.D. PCP - General Family Medicine 04/27/19 [address] [place] [address] documented as of this encounter
--- OUTSIDE RECORDS SUMMARY | 2022-07-08 08:51 | XMS_ITS | Encounter Summary ---
:1985 Author Organization [facility] Address [address] [place] [address] Care Team Providers Name Role Phone Alberto Locke M.D. Primary Care Provider Reason for Visit Reason Onset Date Comments Outpatient COVID-19 Testing 07/08/2020 Encounter Details Date Type Department Care Team Description 07/08/2020 External Outreach Department of Yamel Sandoval Infection Upper Medicine, [place] Marcio SanchezARavi Respiratory (Primary Clinic, in [place], [address] Dx) [place], [place] [address] [address] [place], [place] [phone] (Work) [phone] Social History Tobacco Use Types Packs/Day Years [...] How often do you attend mormon or druze More than 4 time s [...] Encounter created for the drive-through COVID-19 testing. NESS AND SERVICES INSTRUCTOR documented in this encounter Plan of Treatment Scheduled Procedures Name Priority Associated Diagnoses Date/Time COLONOSCOPY Diarrhea documented as of this encounter Procedures Procedure Name Priority Date/Time Associated Diagnosis Comme nts SARS CORONAVIRUS-2 Routine 07/08/2020 1:34 PM Infection Upper Results for this RNA, V BUSINESS AND SERVICES INSTRUCTOR Respiratory procedure are i n the results section. documented in this encounter Results SARS Coronavirus-2 RNA, V Symptomatic (07/08/2020 1:34 PM BUSINESS AND SERVICES INSTRUCTOR) [facility] Method Time Signature SARS-CoV-2 Swab, 07/09/2020 ECLR Specimen Nasopharynx 5:11 AM BUSINESS AND SERVICES INSTRUCTOR Source SARS CoV-2 Undetected Undetected 07/09/2020 ECLR RNA, TMA 5:11 AM BUSINESS AND SERVICES INSTRUCTOR Comment: SARS-CoV-2 RNA absent. This result does not rule out COVID-19 in the patient, as the sensitivity of the test depends o n the timing of the specimen collection and the quality of the specim en. Result should be correlated with patient's history and clinical presentat ion. ----ADDITIONAL INFORMATION---- This test is performed using the Aptima SARS-CoV-2 assay ([employer] which has received Emergency Use Authori zation (EUA) by the U.S. Food and Drug Administration. Fact sheets for this Emergency Use Autho rization (EUA) assay can be found at the following links: For Healthcare Providers: https://www.fd a.gov/media/383162/download For Patients: https://www.fda.gov/media/ 687110/download Specimen Anatomical Collection Method Collection Time Receive d Time (Source) Location / / Volume Laterality Varies 07/08/2020 1:34 PM 0 9:39 (Nasopharynx) BUSINESS AND SERVICES INSTRUCTOR PM BUSINESS AND SERVICES INSTRUCTOR Venu Collins P.A.-C. LAB MICROBIOLOGY - GENERAL O RDERABLES Performing Organization Address City/State/ZIP Code Phon e Number [facility]- [address] [place] [address] [phone] [facility] [place] [place] [address] System [address] documented in this encounter Visit Diagnoses Diagnosis Infection Upper Respiratory - Primary documented in this encounter Additional Health Concerns Infection Onset Date Last Indicated Resolved Time COVID19 Pending 07/08/2020 07/08/2020 07/09/2020 5:11 AM BUSINESS AND SERVICES INSTRUCTOR Assessment Noted Time PHQ-9 Depression Total Score: 9 07/08/2020 3:59 PM BUSINESS AND SERVICES INSTRUCTOR documented as of this encounter Care Teams Sales Promotion Representative Relationship Specialty Start Date End Date Alberto Locke M.D. PCP - General Family Medicine 04/27/19 [address] [place] [phone] documented as of this encounter
--- OUTSIDE RECORDS SUMMARY | 2022-07-08 08:51 | XMS_ITS | Encounter Summary ---
:1985 Author Organization [facility] Address [address] [place] [address] Care Team Providers Name Role Phone Alberto Locke M.D. Primary Care Provider Encounter Details Date Type Department Care Team Description 06/16/2019 Clinical Communication Department of Alberto Roberts M.D. [address], [facility] [phone] [place] [address] [place], [place] (Work) [phone] Social History Tobacco Use [...] How often do you attend lutheran or sikhism More than 4 time s [...] Jayshree HAWKINS. Please return her call at [phone]. documented in this encounter Plan of Treatment Scheduled Procedures Name Priority Associated Diagnoses Date/Time COLONOSCOPY Diarrhea documented as of this encounter Visit Diagnoses Not on filedocumented in this encounter Additional Health Concerns Assessment Noted Time PHQ-9 Depression Total Score: 3 05/30/2019 10:59 AM CD T documented as of this encounter Care Teams Classification And Treatment Director Relationship Specialty Start Date End Date Alberto Locke M.D. PCP - General Family Medicine 04/27/19 [address] [place] [address] documented as of this encounter
--- OUTSIDE RECORDS SUMMARY | 2022-07-08 08:51 | XMS_ITS | Encounter Summary ---
:1985 Author Organization [facility] Address [address] [place] [address] Care Team Providers Name Role Phone Alberto Locke M.D. Primary Care Provider Reason for Visit Outpatient (Routine) - Closed Specialty Diagnoses / Procedures Referred By Contact Refer red To Contact Tammie Snyder APRN, C.NJud, [facility] M.S.N. [address] [place] [phone] Referral ID Status Reason Start Date Expiration Date Visits Requ ested Visits Authorized [id number] Closed 07/09/2020 07/09/2021 1 1 Encounter Details Date Type Department Care Team Description 07/09/2020 Office Visit Urgent Care in [facility] Tammie Snyder APRN, C.NLebron., M.S.N. [address] [place] [phone] Pharyngitis [place], [place] Bree Burt L.PBrittaneyNBrittaney (Primary Dx) [address] [place] [address] Social History Tobacco Use Types [...] How often do you attend caodaism or latter-day More than 4 time s [...] 07/09/2020 3:45 PM CST Strep test complete HERAPIST documented in this encounter Miscellaneous Notes Result Encounter Note - Suzanne Almodovar P.A.-C. - 07/10/2020 12:53 PM ECOTHERAPIST Results were negative for strep. HERAPIST documented in this encounter Plan of Treatment Scheduled Procedures Name Priority Associated Diagnoses Date/Time COLONOSCOPY Diarrhea documented as of this encounter Procedures Procedure Name Priority Date/Time Associated Diagnosis Comme nts GROUP A STREP PCR, STAT 07/09/2020 4:04 PM Pharyngitis Acut e Results for this THROAT ECOTHERAPIST procedure are i n the results section. documented in this encounter Results Streptococcus Group A, Molecular Detection, PCR, Throat (07/09/2020 4:04 PM ECOTHERAPIST) P athologist Signature Group A Strep Negative Negative 07/09/2020 RDWG PCR, Throat 4:36 PM ECOTHERAPIST Specimen Anatomical Collection Method Collection Time Receive d Time (Source) Location / / Volume Laterality Varies (Throat) 07/09/2020 4:04 PM 2019 4:04 ECOTHERAPIST PM ECOTHERAPIST Erlin Link P.A.-C. LAB MICROBIOLOGY - GENERAL O RDERABLES Performing Organization Address City/State/ZIP Code Phon e Number [facility]- [address] [place], [place] [address] [place] [address] System in [place] [address] documented in this encounter Visit Diagnoses Diagnosis Pharyngitis Acute - Primary documented in this encounter Additional Health Concerns Assessment Noted Time PHQ-9 Depression Total Score: 9 07/08/2020 3:59 PM ECOTHERAPIST documented as of this encounter Care Teams Cash Analyst Relationship Specialty Start Date End Date Albreto Locke M.D. PCP - General Family Medicine 04/27/19 [address] [place] [address] documented as of this encounter
--- OUTSIDE RECORDS SUMMARY | 2022-07-08 08:51 | XMS_ITS | Encounter Summary ---
:1985 Author Organization [facility] Address [address] [place] [address] Care Team Providers Name Role Phone Alberto Locke M.D. Primary Care Provider Reason for Referral Outpatient (Routine) - Closed Specialty Diagnoses / Procedures Referred By Contact Refer red To Contact Tammie Snyder APRN, C.NJud, M [facility] SE NEHEMIAH Kent M.S.N. [address] [place] [phone] Referral ID Status Reason Start Date Expiration Date Visits Requ ested Visits Authorized [id number] Closed 07/09/2020 07/09/2021 1 1 Scheduling Instructions At [facility] ([facility]) ONLY. Please schedule as soon as possible within the next 24-48 hours. ORATE DEVELOPMENT OFFICER Reason for Visit Appointment Request (Routine) - Closed Specialty Diagnoses / Procedures Referred By Contact Refer red To Contact Express or Urgent Care Referral ID Status Reason Start Date Expiration Date Visits Requ ested Visits Authorized [id number] Closed 07/09/2020 07/09/2021 1 1 Encounter Details Date Type Department Care Team Description 07/09/2020 Telemedicine [facility] Tammie Can Phar yngitis Acute Care at [facility] JOSEFA C.N.PBrittaney, (Primary Dx) [address] CUMMINGS M.S.NBrittaney [place], [place] [address] [place] [phone] [place], [place] [phone] Social History Tobacco Use Types Packs/Day Years [...] How often do you attend confucianism or mormon More than 4 time s [...] or coughing. ?? Use an alcohol-based hand ornamental metal worker apprentice if washing your hands with soap and [...] [facility] ([facility]). All rights reserved. [id number] ORATE DEVELOPMENT OFFICER documented in this encounter Progress Notes Tammie Snyder APRN, C.N.P., M.S.N. - 07/09/2020 11:20 AM CST CHIEF COMPLAINT Sore throat x 1 week Consult conducted via real-time audio/video technology by Tammie Snyder APRN C.N.PBrittaney in [facility] patient in their home. Visit was [...] exposure however the patient does work in the[employer] in [place]. She wears appropriate personal protective equipment while [...] strep swab to be completed at the [facility] via nurse only visit. Treat per protocol. If strep screen positive, a prescription for Penicillin V Potassium 500 mg PO, every 12 hours for 10days, tablet, will be sent to [facility] in [place]. Strep pharyngitis considered contagious until treated for [...] with primary care provider. Patient has a [facility] online portal account, can view medication list electronically. Ready to learn, no apparent learning barriers were identified; learning preferences include listening. Explained diagnosis and treatment plan; patient/child/caregiver expressed understanding of the content. ORATE DEVELOPMENT OFFICER documented in this encounter Plan of Treatment Scheduled Procedures Name Priority Associated Diagnoses Date/Time COLONOSCOPY Diarrhea Scheduled Referrals Name Type Priority Associated Diagnoses Order S janet Primary Care nurse Outpatient Referral Routine Ex pected: visit (clinic) - 07/09/2020, [facility] Region; Expires: Swabs; Throat 07/09/2023 documented as of this encounter Visit Diagnoses Diagnosis Pharyngitis Acute - Primary documented in this encounter Additional Health Concerns Assessment Noted Time PHQ-9 Depression Total Score: 9 07/08/2020 3:59 PM CORPORATE DEVELOPMENT OFFICER documented as of this encounter Care Teams Loader Operator Relationship Specialty Start Date End Date Alberto Locke M.D. PCP - General Family Medicine 04/27/19 [address] [place] [phone] documented as of this encounter
--- OUTSIDE RECORDS SUMMARY | 2022-07-08 08:51 | XMS_ITS | Encounter Summary ---
:1985 Author Organization [facility] Address [address] [place] [address] Care Team Providers Name Role Phone Alberto [...] How often do you attend samaritan or yarsani More than 4 time s [...] Total Antibody, Serum (03/12/2020 5:36 PM CDT) [facility] Method Time Signature SARS-CoV-2 Negative Negative [...] was performed using the [employer]ys [id number] Reagent assay from [employer], which has received Emergency Use Authori zation(EUA) by the U.S. Food and Drug Administration . Fact sheets for this Emergency Use Autho rization (EUA) assay can be found at the following link s: For Healthcare Providers: https://www.fda.gov/media/665695/downloa d For Patients: https://www.fda.gov/media/086130/downloa d Specimen Anatomical Collection Method Collection Time Receive d Time (Source) Location / / Volume Laterality Blood (Blood, 03/12/2020 5:36 PM 03/13/20 20 3:23 Venous) CDT PM CDT Covid Serology Testing Employer Based LAB MICROBIOLOGY - BLOOD ORDERABLES Performing Organization Address City/State/ZIP Code Phon e Number [facility]- [address] [place] [address] 611 [facility] [place] [address] [address] documented in this encounter Visit Diagnoses Diagnosis Encounter For Screening For Other Viral Diseases (COVID-19) - Primary documented in this encounter Additional Health Concerns Assessment Noted Time PHQ-9 Depression Total Score: 11 03/05/2020 4:06 PM CD T documented as of this encounter Care Teams Inspector Quality Assurance Relationship Specialty Start Date End Date Alberto Locke M.D. PCP - General Family Medicine 04/27/19 [address] [place] [phone] documented as of this encounter
--- OUTSIDE RECORDS SUMMARY | 2022-07-08 08:51 | XMS_ITS | Encounter Summary ---
:1985 Author Organization [facility] Address [address] [place] [address] Care Team Providers Name Role Phone Alberto Locke M.D. Primary Care Provider Reason for Visit Reason Comments Leg Pain lower right leg,red,swollen, ,alittle painful,for few weeks Outpatient (Routine) - Closed Specialty Diagnoses / Procedures Referred By Contact Refer red To Contact Family Medicine Alberto Locke M.D. [address] [phone] Referral ID Status Reason Start Date Expiration Date Visits Requ ested Visits Authorized [id number] Closed 12/06/2019 12/05/2020 1 1 Encounter Details Date Type Department Care Team Description 12/06/2019 Office Visit Department of Alberto Campbell M.D. [address] [place] [phone] Pain Lower Leg Right (Primary Dx); Medicine, [place] Nuno Beck M.D. [address] [place] [phone] Swelling Leg Right; Clinic, in [place], Pain Ne ck; [place] Depression Major Recurrent ( HCC); [address] [place] [address] Body Mass Index 50.0 To 59.9 Adult (HCC); [place] [phone] Social History Tobacco [...] How often do you attend baptism or adventist More than 4 time s [...] CDT documented in this encounter Progress Notes Nnuo Beck M.D. - 12/06/2019 1:00 PM CDT [...] symptoms she should be seen in a [id number]-mi-sulilkyyp to rule out DVT. No fever, chills, [...] of these at a local store or [employer] 2. Episodic neck pain with radiation down [...] calm down and physical therapy is seenpeople [id number] and then can request a referral at [...] documented as of this encounter Care Teams Drum Stenciler Relationship Specialty Start Date End Date Alberto Locke M.D. PCP - General Family Medicine 04/27/19 [address] [place] [phone] documented as of this encounter
--- OUTSIDE RECORDS SUMMARY | 2022-07-08 08:51 | XMS_ITS | Encounter Summary ---
:1985 Author Organization [facility] Address [address] [place] [address] Care Team Providers Name Role Phone Alberto Locke M.D. Primary Care Provider Reason for Referral Outpatient (Routine) - Closed Specialty Diagnoses / Procedures Referred By Contact Refer red To Contact Family [facility] [address] [phone] Referral ID Status Reason Start Date Expiration Date Visits Requ ested Visits Authorized [id number] Closed 05/31/2019 05/30/2020 1 1 Scheduling Instructions Dep Reason for Visit Reason Comments Care Recheck anemia Outpatient (Routine) - Closed Specialty Diagnoses / Procedures Referred By Contact Refer red To Contact Family Alberto Hercules M.D. [address] [phone] Referral ID Status Reason Start Date Expiration Date Visits Requ ested Visits Authorized [id number] Closed 04/27/2019 04/26/2020 1 1 Encounter Details Date Type Department Care Team Description 05/31/2019 Office Visit Department of Alberto Campbell M.D. Anemia (HCC) (Prima ry Dx); [address] Depression Major Recurrent (HCC) Clinic, in [facility] [phone] [address] [facility] [phone] [place], [place] (Work) [phone] Social History Tobacco Use [...] How often do you attend congregational or orthodox More than 4 time s [...] Index 50.0 To 59.9 Adult ([facility]) ??? Abuse Tobacco Smoking ??? Migraine Headache ??? Apnea Sleep Obstructive ??? Gastroesophageal Reflux Disease NOS ??? Attention Deficit With Hyperactivity Disorder ??? Depression Major Recurrent ([facility]) ??? Section Delivery ([facility]) ??? Anemia ([facility]) Current Outpatient Medications Medication Sig ??? buPROPion [...] week Gets together: Once a week Attends orthodox service: 1 to 4 times per year [...] SECTION; Surgeon: Xin De Leon M.D.; Location: [facility] OR ??? ENDOSCOPIC RETROGRADE CHOLANGIOPANCREATOGRAPHY (ERCP) N/A 11/08/2017 Procedure: ENDOSCOPIC RETROGRADE CHOLANGIOPANCREATOGRAPHY; Surgeon: Rubio Baker M.D.; Location: [facility] OR ??? ESOPHAGOGASTRODUODENOSCOPY N/A 11/11/2017 Procedure: ESOPHAGOGASTRODUODENOSCOPY; Surgeon: Rubio Baker M.D.; Location: [facility] GI LAB ??? LAPAROSCOPIC APPENDECTOMY N/A 09/08/2017 Procedure: LAPAROSCOPIC APPENDECTOMY; Surgeon: Edd Moeller D.O.; Location: [facility] OR ??? LAPAROSCOPIC CHOLECYSTECTOMY WITH CHOLANGIOGRAM N/A 03/03/2018 Procedure: LAPAROSCOPIC CHOLECYSTECTOMY POSSIBLE CHOLANGIOGRAM; Surgeon: Edd Moeller D.O.; Location: [facility] OR ??? OTHER CONVERTED SHX [...] visit (clinic) Nov 30, 2019 (Approximate) Region: [facility] Provider needed?: Self Visit length: Long Visit type: General Dep documented in this encounter Plan of Treatment Scheduled Procedures Name Priority Associated Diagnoses Date/Time COLONOSCOPY Diarrhea Scheduled Referrals Name Type Priority Associated Diagnoses Order S [facility] Family Medicine Outpatient Referral Routine Expec pipe: office visit 11/30/2019 (clinic) (Approximate), Expires: 05/31/2022 documented as of this encounter Visit Diagnoses Diagnosis Anemia (HCC) - Prim shonna Depression Major Recurrent (HCC) documented in this encounter Additional Health Concerns Assessment Noted Time PHQ-9 Depression Total Score: 3 05/30/2019 10:59 AM CD T documented as of this encounter Care Teams Cheesemaker Helper Relationship Specialty Start Date End Date Alberto Locke M.D. PCP - General Family Medicine 04/27/19 [address] [phone] documented as of this encounter
--- OUTSIDE RECORDS SUMMARY | 2022-07-08 08:51 | XMS_ITS | Encounter Summary ---
:1985 Author Organization [facility] Address [address] [place] [address] Care Team Providers Name Role Phone Alberto Locke M.D. Primary Care Provider Reason for Visit Reason Comments COVID Nurse Line Encounter Details Date Type Department Care Team Description 12/06/2019 Clinical Communication Division of Emerita Pereira Nurse Line [facility] L, R.N. [facility] [address] [place] [phone] [place] [phone] 200 [facility] (Work) [place] [address] Social History Tobacco Use Types Packs/Day Years [...] How often do you attend adventism or hindu More than 4 time s [...] and water aren't available, use a hand care attendant that contains at least 60% alcohol. Avoid [...] essential items or medical care). Educational Resource: https://www.cdc.gov/coronavirus/2019-ncov/demzzpq-gbyanoq-wghl/index.html Education: patient/caregiver Patient/caregiver able to teach back Patient agreeable to plan of care: Yes The following references were used: [facility] novel coronavirus (COVID- 19) resources documented in this encounter Plan of Treatment Scheduled Procedures Name Priority Associated Diagnoses Date/Time COLONOSCOPY Diarrhea documented as of this encounter Visit Diagnoses Not on filedocumented in this encounter Additional Health Concerns Assessment Noted Time PHQ-9 Depression Total Score: 6 12/06/2019 10:58 AM CD T documented as of this encounter Care Teams Examination Supervisor Relationship Specialty Start Date End Date Alberto Locke M.D. PCP - General Family Medicine 04/27/19 [address] [place] [phone] documented as of this encounter
--- OUTSIDE RECORDS SUMMARY | 2022-07-08 08:51 | XMS_ITS | Encounter Summary ---
:1985 Author Organization [facility] Address [address] [place] [address] Care Team Providers Name Role Phone Alberto Locke M.D. Primary Care Provider Reason for Visit Reason Comments Care 6 week check Outpatient (Routine) - Closed Specialty Diagnoses / Procedures Referred By Contact Refer red To Contact Obstetrics and Diagnoses Section Delivery (HCC) Harleen Josue D.O. [facility] Gynecology [address] [place] [phone] Referral ID Status Reason Start Date Expiration Date Visits Requ ested Visits Authorized [id number] Closed 04/15/2019 04/14/2020 1 1 Encounter Details Date Type Department Care Team Description 05/30/2019 Office Visit Department of Leonora Reaves, Care Postpar fercho ([facility]) (Primary Dx); Obstetrics and PROJECT CONSTRUCTION MANAGER, C.N.P. Section Delivery ([facility]); Gynecology in [address] [place] [address] [address] [place], [place] [phone] (Work) [phone] Social History Tobacco Use Types Packs/Day Years [...] How often do you attend mandaen or alevism More than 4 time s [...] in this encounter Progress Notes Leonora Reaves, PROJECT CONSTRUCTION MANAGER, C.N.P. - 05/30/2019 11:00 AM CDT SUBJECTIVE [...] Xin De Leon M.D.; Location: [facility] OR ??? ENDOSCOPIC RETROGRADE CHOLANGIOPANCREATOGRAPHY (ERCP) N/A 11/08/2017 Procedure: ENDOSCOPIC RETROGRADE CHOLANGIOPANCREATOGRAPHY; Surgeon: Rubio Baker M.D.; Location: [facility] OR ??? ESOPHAGOGASTRODUODENOSCOPY N/A 11/11/2017 Procedure: ESOPHAGOGASTRODUODENOSCOPY; Surgeon: Rubio Baker M.D.; Location: [facility] GI LAB ??? LAPAROSCOPIC APPENDECTOMY N/A 09/08/2017 Procedure: LAPAROSCOPIC APPENDECTOMY; Surgeon: Edd Moeller D.O.; Location: [facility] OR ??? LAPAROSCOPIC CHOLECYSTECTOMY WITH CHOLANGIOGRAM N/A 03/03/2018 Procedure: LAPAROSCOPIC CHOLECYSTECTOMY POSSIBLE CHOLANGIOGRAM; Surgeon: Edd Moeller D.O.; Location: [facility] OR ??? OTHER CONVERTED SHX (SEE COMMENT) [...] abstinent at this time. Consult placed to [facility] ALUMNAE SECRETARY #2 Section Delivery (HCC) Mackenzie type rash [...] of this encounter Care Teams Home Health Travel Ot Relationship Specialty Start Date End Date Alberto Locke M.D. PCP - General Family Medicine 04/27/19 [address] [place] [phone] documented as of this encounter
--- OUTSIDE RECORDS SUMMARY | 2022-07-08 08:51 | XMS_ITS | Encounter Summary ---
:1985 Author Organization [facility] Address [address] [place] [address] Care Team Providers Name Role Phone Alberto Locke M.D. Primary Care Provider Reason for Referral Outpatient (Routine) - Closed Specialty Diagnoses / Procedures Referred By Contact Refer red To Contact Family Alberto Hercules M.D. [facility] [address] [phone] Referral ID Status Reason Start Date Expiration Date Visits Requ ested Visits Authorized [id number] Closed 12/06/2019 12/05/2020 1 1 Scheduling Instructions Face to face or virtual depending on COV ID restrictions at that time ehavioral Health (Routine) - Closed Specialty Diagnoses / Procedures Referred By Contact Refer red To Contact Psychiatry / Psychiatry Diagnoses Depression Major Recurrent (HCC) Alberto Locke M.D. [facility] [address] [place] [phone] Referral ID Status Reason Start Date Expiration Date Visits Requ ested Visits Authorized [id number] Closed 12/06/2019 12/05/2020 1 1 utpatient (Routine) - Closed Specialty Diagnoses / Procedures Referred By Contact Refer red To Contact Family Alberto Hercules M.D. [facility] [address] [phone] Referral ID Status Reason Start Date Expiration Date Visits Requ ested Visits Authorized [id number] Closed 12/06/2019 12/05/2020 1 1 Scheduling Instructions Face to face family med but must do COVI D triage clearance first Reason for Visit Reason Comments Follow-up ? lab -hgb Outpatient (Routine) - Closed Specialty Diagnoses / Procedures Referred By Contact Refer red To Contact Family Medicine Alberto Locke M.D. [facility] Region [address] [place] [phone] Referral ID Status Reason Start Date Expiration Date Visits Requ ested Visits Authorized [id number] Closed 05/31/2019 05/30/2020 1 1 Encounter Details Date Type Department Care Team Description 12/06/2019 Virtual Visit Department of Alberto Campbell M.D. Depression Major Recurrent (HCC) (Primar y Dx); Medicine, [address] Edema Ankle Right Clinic, in [facility] [phone] [place] [address] [place], [place] (Work) [phone] Social History Tobacco Use [...] How often do you attend pentecostal or holiness More than 4 time s [...] Index 50.0 To 59.9 Adult ([facility]) ??? Abuse Tobacco Smoking ??? Migraine Headache ??? Apnea Sleep Obstructive ??? Gastroesophageal Reflux Disease NOS ??? Attention Deficit With Hyperactivity Disorder ??? Depression Major Recurrent ([facility]) Current Outpatient Medications Medication Sig ??? [...] week Gets together: Once a week Attends holiness service: 1 to 4 times per year [...] SECTION; Surgeon: Xin De Leon M.D.; Location: [facility] OR ??? ENDOSCOPIC RETROGRADE CHOLANGIOPANCREATOGRAPHY (ERCP) N/A 11/08/2017 Procedure: ENDOSCOPIC RETROGRADE CHOLANGIOPANCREATOGRAPHY; Surgeon: Rubio Baker M.D.; Location: [facility] OR ??? ESOPHAGOGASTRODUODENOSCOPY N/A 11/11/2017 Procedure: ESOPHAGOGASTRODUODENOSCOPY; Surgeon: Rubio Baker M.D.; Location: [facility] GI LAB ??? LAPAROSCOPIC APPENDECTOMY N/A 09/08/2017 Procedure: LAPAROSCOPIC APPENDECTOMY; Surgeon: Edd Moeller D.O.; Location: [facility] OR ??? LAPAROSCOPIC CHOLECYSTECTOMY WITH CHOLANGIOGRAM N/A 03/03/2018 Procedure: LAPAROSCOPIC CHOLECYSTECTOMY POSSIBLE CHOLANGIOGRAM; Surgeon: Edd Moeller D.O.; [facility] [...] I will refer her semi urgently to [facility] social work #2 Edema Ankle Right Due to asymmetrical nature of this LE edema she will need to be seen face to face in [facility] today I will have her talk to COVID triage nurse to clear her before she can schedule for visit with [facility] doc today. She appears to have no COVID symptoms or risk on my assessment. If she is recommended to need COVID screening she may need to be seen in ER to rule out DVT. Follow up in 1 month(s) Consults and Follow-ups to Schedule Family Medicine office visit (clinic) Dec 06, 2019 Region: [facility] Provider needed?: Other Provider Specific provider: [...] (Approximate) Semi Urg - virtual ok Region: [facility] Region Visit type: Social Work Assessment If [...] visit (clinic) January 05, 2020 (Approximate) Region: [facility] Region Provider needed?: Self Visit length: Long [...] documented as of this encounter Care Teams Sql Server Dba Relationship Specialty Start Date End Date Alberto Locke M.D. PCP - General Family Medicine 04/27/19 [address] [place] [phone] documented as of this encounter
--- OUTSIDE RECORDS SUMMARY | 2022-07-08 08:51 | XMS_ITS | Encounter Summary ---
:1985 Author Organization [facility] Address [address] [place] [address] Care Team Providers Name Role Phone Alberto Locke M.D. Primary Care Provider Encounter Details Date Type Department Care Team Description 12/06/2019 Hospital Encounter Department of Ebony, Nuno W, Pain L ower Leg Right[facility] [address] [phone] Social History Tobacco Use Types Packs/Day Years [...] How often do you attend anglican or buddhism More than 4 time s [...] to pay for the very basics like [employer] hat hard 07/09/2020 food, housing, medical care, [...] documented as of this encounter Care Teams Nuclear Monitoring Technician Relationship Specialty Start Date End Date Alberto Locke M.D. PCP - General Family Medicine 04/27/19 [address] [place] [phone] documented as of this encounter
--- OUTSIDE RECORDS SUMMARY | 2022-07-08 08:51 | XMS_ITS | Encounter Summary ---
:1985 Author Organization [facility] Address [address] [place] [address] Care Team Providers Name Role Phone Alberto Locke M.D. Primary Care Provider Encounter Details Date Type Department Care Team Description 10/17/2019 Orders Only Department of Pediatrics in [facility] cynthia [place], [place] P.A.-C. [address] [facility] [address] [place] [phone] [place] [phone] (Wo rk) Social History Tobacco Use Types [...] How often do you attend holiness or buddhist More than 4 time s [...] documented as of this encounter Care Teams Marketing Admin Relationship Specialty Start Date End Date Alberto Locke M.D. PCP - General Family Medicine 04/27/19 [address] [place] [phone] documented as of this encounter
--- OUTSIDE RECORDS SUMMARY | 2022-07-08 08:51 | XMS_ITS | Encounter Summary ---
:1985 Author Organization [facility] Address [address] [place] [address] Care Team Providers Name Role Phone Alberto Locke M.D. Primary Care Provider Reason for Visit Reason Comments Follow-up Outpatient (Routine) - Closed Specialty Diagnoses / Procedures Referred By Contact Refer red To Contact Family Medicine Alberto Locke M.D. [facility] [address] [place] [phone] Referral ID Status Reason Start Date Expiration Date Visits Requ ested Visits Authorized [id number] Closed 12/06/2019 12/05/2020 1 1 Encounter Details Date Type Department Care Team Description 03/05/2020 Office Visit Department of Family Alberto Locke M.D. Depression Major Recurrent (HCC) (Primar y Dx); [facility], [address] Hy[facility], in [facility] [phone] [place] [address] [place], [place] (Work) [phone] Social History Tobacco Use [...] Adult ([facility]) ??? Abuse Tobacco Smoking ??? Migraine Headache ??? Apnea Sleep Obstructive ??? Gastroesophageal Reflux Disease NOS ??? Attention Deficit With Hyperactivity Disorder ??? Depression Major Recurrent ([facility]) Current Outpatient Medications Medication Sig ??? acetaminophen [...] week Gets together: Once a week Attends buddhist service: 1 to 4 times per year [...] SECTION; Surgeon: Xin De Leon M.D.; Location: [facility] OR ??? SECTION 04/12/2019 ??? ENDOSCOPIC RETROGRADE CHOLANGIOPANCREATOGRAPHY (ERCP) N/A 11/08/2017 Procedure: ENDOSCOPIC RETROGRADE CHOLANGIOPANCREATOGRAPHY; Surgeon: Rubio Baker M.D.; Location: [facility] OR ??? ESOPHAGOGASTRODUODENOSCOPY N/A 11/11/2017 Procedure: ESOPHAGOGASTRODUODENOSCOPY; Surgeon: Rubio Baker M.D.; Location: [facility] GI LAB ??? LAPAROSCOPIC APPENDECTOMY N/A 09/08/2017 Procedure: LAPAROSCOPIC APPENDECTOMY; Surgeon: Edd Moeller D.O.; Location: [facility] OR ??? LAPAROSCOPIC CHOLECYSTECTOMY WITH CHOLANGIOGRAM N/A 03/03/2018 Procedure: LAPAROSCOPIC CHOLECYSTECTOMY POSSIBLE CHOLANGIOGRAM; Surgeon: Edd Moeller D.O.; Location: [facility] OR ??? OTHER CONVERTED SHX (SEE [...] documented as of this encounter Care Teams Record Filing Clerk Relationship Specialty Start Date End Date Alberto Locke M.D. PCP - General Family Medicine 04/27/19 [address] [place] [address] documented as of this encounter
--- OUTSIDE RECORDS SUMMARY | 2022-07-08 08:51 | XMS_ITS | Encounter Summary ---
:1985 Author Organization [facility] Address [address] [place] [address] Care Team Providers Name Role Phone Alberto Locke M.D. Primary Care Provider Encounter Details Date Type Department Care Team Description 07/08/2020 Clinical Communication Department of [facility] Alberto Fregoso M.D. [address], [facility] [address] 5 [facility] [phone] [place], [place] (Work) [phone] Social History Tobacco Use [...] How often do you attend buddhist or mosque More than 4 time s [...] not improve. Thank you for the information R SYSTEM ELECTRICAL ENGINEER Telephone Encounter - Venu Collins P.A.-C. - 07/08/2020 11:29 AM POWER SYSTEM ELECTRICAL ENGINEER Currently only COVID swabs can be performed at the testing site. This may change in the future. R SYSTEM ELECTRICAL ENGINEER Telephone Encounter - Karey Carballo L.P.N. - 07/08/2020 11:20 AM POWER SYSTEM ELECTRICAL ENGINEER I believe just covid test are done at the [facility] site? Will ask Venu R SYSTEM ELECTRICAL ENGINEER Telephone Encounter - Cristine Ramesh - 07/08/2020 [...] Thanks Name of Medication (if relevant): N/A R SYSTEM ELECTRICAL ENGINEER documented in this encounter Plan of Treatment Scheduled Procedures Name Priority Associated Diagnoses Date/Time COLONOSCOPY Diarrhea documented as of this encounter Visit Diagnoses Not on filedocumented in this encounter Additional Health Concerns Infection Onset Date Last Indicated Resolved Time COVID19 Pending 07/08/2020 07/08/2020 07/09/2020 5:11 AM POWER SYSTEM ELECTRICAL ENGINEER Assessment Noted Time PHQ-9 Depression Total Score: 9 07/08/2020 3:59 PM POWER SYSTEM ELECTRICAL ENGINEER documented as of this encounter Care Teams Trouble Tracer Relationship Specialty Start Date End Date Alberto Locke M.D. PCP - General Family Medicine 04/27/19 [address] [place] [address] documented as of this encounter
--- OUTSIDE RECORDS SUMMARY | 2022-07-08 08:51 | XMS_ITS | Encounter Summary ---
:1985 Author Organization [facility] Address [address] [place] [address] Care Team Providers Name Role Phone Alberto Locke M.D. Primary Care Provider Encounter Details Date Type Department Care Team Description 07/08/2020 Admin Visit Department of Family Medicine, [facility] [place] in [place], [place] [address] [place] [address] [facility] [phone] Social History Tobacco Use Types Packs/Day Years [...] COVID19 Pending 07/08/2020 07/08/2020 07/09/2020 5:11 AM MANAGEMENT PLANNER Assessment Noted Time PHQ-9 Depression Total Score: 9 07/08/2020 3:59 PM MANAGEMENT PLANNER documented as of this encounter Care Teams Gerentological Physiotherapist Relationship Specialty Start Date End Date Alberto Locke M.D. PCP - General Family Medicine 04/27/19 [address] [place] [address] documented as of this encounter
--- OUTSIDE RECORDS SUMMARY | 2022-07-08 08:51 | XMS_ITS | Encounter Summary ---
:1985 Author Organization [facility] Address [address] [place] [address] Care Team Providers Name Role Phone Alberto Locke M.D. Primary Care Provider Encounter Details Date Type Department Care Team Description 07/03/2019 Orders Only Department of Family Alberto Locke M.D. Medicine, [facility], [address] [facility] [place] [address] [address] [place] [address] [phone] Social History Tobacco Use Types Packs/Day Years [...] How often do you attend spiritism or jewish More than 4 time s [...] to pay for the very basics like [employer] hat hard 07/09/2020 food, housing, medical care, [...] documented as of this encounter Care Teams Bushel Worker Relationship Specialty Start Date End Date Alberto Locke M.D. PCP - General Family Medicine 04/27/19 [address] [place] [address] documented as of this encounter
--- OUTSIDE RECORDS SUMMARY | 2022-07-08 08:51 | XMS_ITS | Encounter Summary ---
:1985 Author Organization [facility] Address [address] [place] [address] Care Team Providers Name Role Phone Alberto Locke M.D. Primary Care Provider Reason for Referral Outpatient (Routine) - Closed Specialty Diagnoses / Procedures Referred By Contact Refer red To Contact Diagnoses Insertion Intrauterine Device Leonora Reaves APRN, [facility] Region Procedures IUD - Insertion or Reinsertion w/removal C.N.P. [address] [place] [address] Referral ID Status Reason Start Date Expiration Date Visits Requ ested Visits Authorized [id number] Closed 08/07/2020 08/07/2021 1 1 MITH APPRENTICE Reason for Visit Reason Comments Contraception Outpatient (Routine) - Closed Specialty Diagnoses / Procedures Referred By Contact Refer red To Contact Obstetrics and Diagnoses PAR Leonora Reavse APRN, [facility] Gynecology C.N.P. [address] [place] [address] Referral ID Status Reason Start Date Expiration Date Visits Requ ested Visits Authorized [id number] Closed 07/24/2020 07/24/2021 1 1 Encounter Details Date Type Department Care Team Description 08/07/2020 Office Visit Department of Leonora Reaves, Insertion In trauterine Obstetrics and JOSEFA C.N.P. Device (Primary Dx) Gynecology in [place] [address] [facility] [place] [address] [facility] [address] [place] [phone] [address] (Work) [phone] Social History Tobacco Use Types Packs/Day Years [...] How often do you attend uatsdin or tenriism More than 4 time s [...] Comments Blood Pressure 138/82 08/07/2020 10:53 AM TINSMITH APPRENTICE Pulse - - Temperature - - Respiratory Rate - - Oxygen Saturation - - Inhaled Oxygen Concentration - - Weight 150 kg (330 lb 11 oz) 08/07/2020 10:53 AM TINSMITH APPRENTICE Height - - Body Mass Index 60.85 [...] appropriate location of the IUD is verified. STAMP MOUNTER MITH APPRENTICE documented in this encounter Plan of Treatment Scheduled Procedures Name Priority Associated Diagnoses Date/Time COLONOSCOPY Diarrhea documented as of this encounter Procedures Procedure Name Priority Date/Time Associated Diagnosis Comme nts ND INSERT OF Routine 08/07/2020 11:00 Insertion Results for this INTRAUTERINE DEVICE AM TINSMITH APPRENTICE Intrauterine Device p rocedure are in the results section. documented in this encounter Results ND INSERT OF INTRAUTERINE DEVICE (08/07/2020 11:00 AM TINSMITH APPRENTICE) Narrative MMODAL - 08/07/2020 11:00 AM TINSMITH APPRENTICE Leonora Reaves WHNP-BC RBrittaneyN. ? 08/07/2020 11:34 [...] is the second attempt at IUD in [facility] in approximately 2 weeks time. Today, [...] mcg/24 hours (6 Given 08/07/2020 11:30 AM TINSMITH APPRENTICE 1 each yrs) 52 mg IUD 1 each (MIRENA) 1 each, intrauterine, One-Time Injection, Starting on Wed08/07/20 at 1130, For 1 dose documented in this encounter Additional Health Concerns Assessment Noted Time PHQ-9 Depression Total Score: 9 07/08/2020 3:59 PM TINSMITH APPRENTICE documented as of this encounter Care Teams Home Visits Nurse Relationship Specialty Start Date End Date Alberto Locke M.D. PCP - General Family Medicine 04/27/19 [place] [address] documented as of this encounter
--- OUTSIDE RECORDS SUMMARY | 2022-07-08 08:51 | XMS_ITS | Encounter Summary ---
:1985 Author Organization [facility] Address [address] [place] [address] Care Team Providers Name Role Phone Alberto Locke M.D. Primary Care Provider Encounter Details Date Type Department Care Team Description 05/31/2019 Hospital Encounter Department of Alberto Locke Anemia P regnancy Laboratory Medicine M.Kelly (HCC) in [address] [address] [place], [place] [phone] [address] (Work) [phone] Social History Tobacco Use Types Packs/Day Years [...] How often do you attend taoist or mandaen More than 4 time s [...] to pay for the very basics like [employer] hat hard 07/09/2020 food, housing, medical care, [...] Address City/State/ZIP Code Phon e Number [facility]- [address] [place], [place] [address] [address] [place] [address] System in [place] [address] documented in this encounter Visit Diagnoses Diagnosis Anemia (HCC) documented in this encounter Additional Health Concerns Assessment Noted Time PHQ-9 Depression Total Score: 3 05/30/2019 10:59 AM CD T documented as of this encounter Care Teams Toaster Element Repairer Relationship Specialty Start Date End Date Alberto Locke M.D. PCP - General Family Medicine 04/27/19 [address] [address] documented as of this encounter
--- OUTSIDE RECORDS SUMMARY | 2022-07-08 08:51 | XMS_ITS | Encounter Summary ---
:1985 Author Organization [facility] Address [address] [place] [address] Care Team Providers Name Role Phone Alberto Locke M.D. Primary Care Provider Encounter Details Date Type Department Care Team Description 11/22/2020 Orders Only [facility] PCP TH Sa emma Lemos M.D. [address] [place], [place] [phone] (Wo rk) Social History Tobacco Use Types [...] Depression Total Score: 9 07/08/2020 3:59 PM COOK SPECIALTY FOREIGN FOOD documented as of this encounter Care Teams Crystalizer Relationship Specialty Start Date End Date Alberto Locke M.D. PCP - General Family Medicine 04/27/19 [address] [place] [phone] documented as of this encounter
--- OUTSIDE RECORDS SUMMARY | 2022-07-08 08:51 | XMS_ITS | Encounter Summary ---
:1985 Author Organization [facility] Address [address] [place] [address] Care Team Providers Name Role Phone Alberto Locke M.D. Primary Care Provider Encounter Details Date Type Department Care Team Description 03/12/2020 Hospital Encounter Department of [facility] laura Brown Laboratory Medicine Leonora Flaherty Other in [place] Viral Diseases [place] [address] (COVID-19) [address] [place] [address] [place] [phone] Social History Tobacco Use [...] How often do you attend buddhism or buddhist More than 4 time s [...] Total Antibody, Serum (03/12/2020 5:36 PM CDT) [facility] Method Time Signature SARS-CoV-2 Negative Negative [...] was performed using the Javy El ecsys Iehs-GSHR-FpD-2 Reagent assay from [employer], which has received Emergency Use Authori zation(EUA) by the U.S. Food and Drug Administration . Fact sheets for this Emergency Use Autho rization (EUA) assay can be found at the following link s: For Healthcare Providers: https://www.fda.gov/media/193055/downloa d For Patients: https://www.fda.gov/media/965582/downloa d Specimen Anatomical Collection Method Collection Time Receive d Time (Source) Location / / Volume Laterality Blood (Blood, 03/12/2020 5:36 PM 03/13/20 20 3:23 Venous) CDT PM CDT Covid Serology Testing Employer Based LAB MICROBIOLOGY - BLOOD ORDERABLES Performing Organization Address City/State/ZIP Code Phon e Number [facility]- [address] [place] [phone] [facility] [place] [address] System [address] documented in this encounter Visit Diagnoses Diagnosis Encounter For Screening For Other Viral Diseases (COVID-19) documented in this encounter Additional Health Concerns Assessment Noted Time PHQ-9 Depression Total Score: 11 03/05/2020 4:06 PM CD T documented as of this encounter Care Teams Safe Deposit Attendant Relationship Specialty Start Date End Date Alberto Locke M.D. PCP - General Family Medicine 04/27/19 [place] [phone] documented as of this encounter
--- OUTSIDE RECORDS SUMMARY | 2022-07-08 08:51 | XMS_ITS | Encounter Summary ---
:1985 Author Organization [facility] Address [address] [place] [address] Care Team Providers Name Role Phone Alberto Locke M.D. Primary Care Provider Reason for Visit Reason Onset Date Comments Outpatient COVID-19 Testing 03/05/2020 Encounter Details Date Type Department Care Team Description 03/05/2020 External Outreach Department of Employer Based, [facility] For Family Medicine, Covid Serology Screening For Other [facility], in Testing Viral [place], [place] (COVID-19) (Primary [address] Dx) [place] [address] Social History Tobacco Use Types [...] How often do you attend baptism or scientologist More than 4 time s [...] to pay for the very basics like [employer] hat hard 07/09/2020 food, housing, medical care, [...] Scrn, Blood Spot (03/05/2020 9:10 AM CDT) [facility] Method Time Signature SARS-CoV-2 Reactive (A) Negative 03/06/2020 [facility] IgG Emp Scrn, 3:24 PM [...] Testing was performed using the [employer] N Qord-ZRMC-YpZ-2 DONALD (IgG). ??This test has received Emergency Use Authorization (EUA) by the U.S. Food and Drug Administration and is used per fish warden's instructions, but it is modified from the fish warden's instructions wit h a bridging study to include dried blood spot specimens. ? ? Performance characteristics were verifie d by [facility] in a manner consistent with CLIA require ments. Specimen Anatomical Collection Method Collection Time Receive d Time (Source) Location / / Volume Laterality Blood (Blood, 03/05/2020 9:10 AM 03/05/20 20 8:50 Venous) CDT PM CDT Covid Serology Testing Employer Based LAB MICROBIOLOGY - BLOOD ORDERABLES Performing Organization Address City/State/ZIP Code Phon e Number [facility] [address] [place], [place] [address] [place] [address] [place] [address] Laboratory Medicine and Pathology [address] [place] documented in this encounter Visit Diagnoses Diagnosis Encounter For Screening For Other Viral Diseases (COVID-19) - Primary documented in this encounter Additional Health Concerns Assessment Noted Time PHQ-9 Depression Total Score: 11 03/05/2020 4:06 PM CD T documented as of this encounter Care Teams Research Laboratory Technician Relationship Specialty Start Date End Date Alberto Locke M.D. PCP - General Family Medicine 04/27/19 [address] [place] [phone] documented as of this encounter
--- OUTSIDE RECORDS SUMMARY | 2022-07-08 08:51 | XMS_ITS | Encounter Summary ---
:1985 Author Organization [facility] Address [address] [place] [address] Care Team Providers Name Role Phone Alberto Locke M.D. Primary Care Provider Reason for Referral Outpatient (Routine) - Closed Specialty Diagnoses / Procedures Referred By Contact Refer red To Contact Obstetrics and Diagnoses PAR Leonora Reaves, JOSEFA, MIGDALIAS [facility] Gynecology C.N.P. [address] [place] [phone] Referral ID Status Reason Start Date Expiration Date Visits Requ ested Visits Authorized [id number] Closed 07/24/2020 07/24/2021 1 1 Scheduling Instructions IUD insertion AURANT FRONT MANAGER Reason for Visit Reason Comments Annual Exam Appointment Request (Routine) - Closed Specialty Diagnoses / Procedures Referred By Contact Refer red To Contact Obstetrics and Gynecology Referral ID Status Reason Start Date Expiration Date Visits Requ ested Visits Authorized [id number] Closed 07/24/2020 07/24/2021 1 1 Encounter Details Date Type Department Care Team Description 07/24/2020 Office Visit Department of Leonora Reaves Preventive G ynecological Exam (Primary Dx); Obstetrics and JOSEFA, C.N.P. Pap Smear Examination; Gynecology in [facility] [place] [address] Migraine Headache; [facility] [place] Abuse Tobacco Smoking; [address] [facility] [address] Body Mass Index 60.0 To 69.9 Adult (HCC) ; [facility] [place] [phone] Depression Olimpia r Recurrent ([facility]) [address] (Work) [phone] Social History Tobacco Use Types Packs/Day Years [...] How often do you attend mu-ism or lutheran More than 4 time s [...] Comments Blood Pressure 144/76 07/24/2020 1:03 PM RESTAURANT FRONT MANAGER Pulse - - Temperature - - Respiratory Rate - - Oxygen Saturation - - Inhaled Oxygen Concentration - - Weight 151 kg (332 lb 14.3 oz) 07/24/2020 1:03 PM RESTAURANT FRONT MANAGER Height - - Body Mass Index 61.26 [...] 3. Is due for a Pap smear PIPE STRAIGHTENER HISTORY: Last Pap 2016 and was NIL. [...] SECTION; Surgeon: Xin De Leon M.D.; Location: [facility] OR ??? SECTION 04/12/2019 ??? ENDOSCOPIC RETROGRADE CHOLANGIOPANCREATOGRAPHY (ERCP) N/A 11/08/2017 Procedure: ENDOSCOPIC RETROGRADE CHOLANGIOPANCREATOGRAPHY; Surgeon: Rubio Baker M.D.; Location: [facility] OR ??? ESOPHAGOGASTRODUODENOSCOPY N/A 11/11/2017 Procedure: ESOPHAGOGASTRODUODENOSCOPY; Surgeon: Rubio Baker M.D.; Location: [facility] GI LAB ??? LAPAROSCOPIC APPENDECTOMY N/A 09/08/2017 Procedure: LAPAROSCOPIC APPENDECTOMY; Surgeon: Edd Moeller D.O.; Location: [facility] OR ??? LAPAROSCOPIC CHOLECYSTECTOMY WITH CHOLANGIOGRAM N/A 03/03/2018 Procedure: LAPAROSCOPIC CHOLECYSTECTOMY POSSIBLE CHOLANGIOGRAM; Surgeon: Edd Moeller D.O.; Location: [facility] OR ??? OTHER CONVERTED SHX [...] week Gets together: Once a week Attends lutheran service: More than 4 times per year [...] with logging foods in roque such as [employer] or something comparable, making small changes as [...] blood/lymph issues: Yes No urinary/reproductive issues: Yes AURANT FRONT MANAGER documented in this encounter Plan of [...] Pap Smear Results for this CO-TEST SCREEN RESTAURANT FRONT MANAGER Examination procedure are in the results section. HPV WITH Routine 07/24/2020 1:43 PM Results f or this GENOTYPING, PCR, RESTAURANT FRONT MANAGER procedure a re in THINPREP the results section. documented in this encounter Results HPV with Genotyping, PCR, ThinPrep (07/24/2020 1:43 PM RESTAURANT FRONT MANAGER) [facility] gist Method Time Signature Specimen Thin Prep 07/29/2020 DTL Source Vial, 4:25 PM RESTAURANT FRONT MANAGER Cervix/Endoc ervix HPV High Risk Negative Negative 07/29/2020 DTL type 16, PCR 4:25 PM RESTAURANT FRONT MANAGER HPV High Risk Negative Negative 07/29/2020 DTL type 18, PCR 4:25 PM RESTAURANT FRONT MANAGER HPV other Negative Negative 07/29/2020 DTL High Risk 4:25 PM RESTAURANT FRONT MANAGER types, PCR Comment: The following Other High Risk HPV types were not detected: 31, 33, 35, 39, 45, 51, 52, 56, 58, 59, 66, and 68 This test was ordered in the context of a [facility] PIPE STRAIGHTENER Cytology case; this result should be int erpreted within the context of the PIPE STRAIGHTENER cytology report. Specimen Anatomical Collection Method Collection Time Receive d Time (Source) Location / / Volume Laterality Varies 07/24/2020 1:43 PM 0 RESTAURANT FRONT MANAGER 10:27 AM RESTAURANT FRONT MANAGER Leonora Reaves APRN, C.N.P. LAB MICROBIOLOGY - GENERAL O RDERABLES Performing Organization Address City/State/ZIP Code Phon e Number [facility] - [address] [place], [place] [address] [facility] [place] [address] Laboratories-[facility] [address] [facility] ThinPrep w/HPV Co-Test Screen (07/24/2020 1:43 PM RESTAURANT FRONT MANAGER) Component Value Ref Test Analysis Performed Pathologis t Range Method Time At [facility] 07/30/2020 ECLR 2:28 PM RESTAURANT FRONT MANAGER Disclaimer High risk HPV testing, Real-Time Polymerase Chain Reac tion 07/30/2020 ECLR (PCR) was performed on the liquid-based cytology specimen 2:28 PM at RESTAURANT FRONT MANAGER [place], [place]. Report LISSETT Foley(ASCP) 07/30/2020 ECL R electronically I verify that I have examined all relevant slides/ma terials 2:28 PM signed by for the specimen(s) and rendered or confirmed the diagnosis. RESTAURANT FRONT MANAGER Gross Description Received specimen 07/30/2020 ECL R in a ThinPrep 2:28 PM vial. RESTAURANT FRONT MANAGER Pap Test Source Cervical/Endocervi 07/30/2020 ECLR huma 2:28 PM RESTAURANT FRONT MANAGER Interpretation Cervical/Endocervical ??(ThinPrep): 07/30/2020 ECLR Satisfactory for Evaluation 2:28 PM Endocervical/transformation zone components absent RESTAURANT FRONT MANAGER Negative for Intraepithelial Lesion or Malignancy ??High [...] Laterality Varies 07/24/2020 1:43 PM 0 (Cervix/Endocerv RESTAURANT FRONT MANAGER 10:27 AM CS T ix) Narrative This result has an attachment that is no t available. Leonora Reaves APRN, C.N.P. LAB PAP PATHDX ORDERABLES Performing Organization Address City/State/ZIP Code Phon e Number [facility]- [address] [place] [address] [phone] [facility] [place] [address] System in [address] documented in this encounter Visit Diagnoses Diagnosis Preventive Gynecological Exam - Primary Pap Smear Examination Migraine Headache Abuse Tobacco Smoking Body Mass Index 60.0 To 69.9 Adult (HCC) Depression Major Recurrent (HCC) documented in this encounter Additional Health Concerns Assessment Noted Time PHQ-9 Depression Total Score: 9 07/08/2020 3:59 PM RESTAURANT FRONT MANAGER documented as of this encounter Care Teams Farrowing Manager Relationship Specialty Start Date End Date Alberto Locke M.D. PCP - General Family Medicine 04/27/19 [address] [place] [address] documented as of this encounter
--- OUTSIDE RECORDS SUMMARY | 2022-07-08 08:51 | XMS_ITS | Encounter Summary ---
:1985 Author Organization [facility] Address [address] [place] [address] Care Team Providers Name Role Phone Alberto Locke M.D. Primary Care Provider Encounter Details Date Type Department Care Team Description 03/12/2020 Orders Only RST PCP HLTH MNT Alberto Locke M. D. [address] [place], [place] [phone] (Wo rk) Social History [...] How often do you attend adventist or yarsani More than 4 time s [...] documented as of this encounter Care Teams Corrosion Control Fitter Relationship Specialty Start Date End Date Alberto Locke M.D. PCP - General Family Medicine 04/27/19 [address] [place] [phone] documented as of this encounter
--- OUTSIDE RECORDS SUMMARY | 2022-07-08 08:51 | XMS_ITS | Encounter Summary ---
:1985 Author Organization [facility] Address [address] [place] [address] Care Team Providers Name Role Phone Alberto Locke M.D. Primary Care Provider Reason for Visit Reason Comments URI Appointment Request (Routine) - Closed Specialty Diagnoses / Procedures Referred By Contact Refer red To Contact Family Medicine Referral ID Status Reason Start Date Expiration Date Visits Requ ested Visits Authorized [id number] Closed 09/11/2019 09/10/2020 1 1 Encounter Details Date Type Department Care Team Description 09/11/2019 Office Visit Department of Family Gerda Pike [facility] (Primary Dx); Medicine, [place] FUNERAL SERVICE PRACTITIONER/EMBALMER, C.N.P., Phar yngitis Acute; Clinic, in [place] D.N.PBrittaney Body Mass Index 50.0 To 59.9 Adult (HCC) ; [place] [address] Abuse Tobacco Smoking [address] [place] [phone] Social History Tobacco Use Types Packs/Day Years [...] How often do you attend congregational or anabaptist More than 4 time s [...] Comments Blood Pressure 130/73 09/11/2019 9:34 AM RHEOSTAT ASSEMBLER Pulse 92 09/11/2019 9:34 AM RHEOSTAT ASSEMBLER Temperature 35.7 ??C (96.3 ??F) 09/11/2019 9:34 AM RHEOSTAT ASSEMBLER Respiratory Rate - - Oxygen Saturation 95% 09/11/2019 9:34 AM RHEOSTAT ASSEMBLER Inhaled Oxygen Concentration - - Weight 136 kg (299 lb 13.2 oz) 09/11/2019 9:34 AM RHEOSTAT ASSEMBLER Height - - Body Mass Index 54.82 [...] No h/o asthma. No fever reducers today. STAT ASSEMBLER Gerda Pike APRN, C.NJud, D.N.P. - 09/11/2019 [...] the content. Gerda Pike APRN, C.N.P., D.N.P. STAT ASSEMBLER documented in this encounter Plan of Treatment Scheduled Procedures Name Priority Associated Diagnoses Date/Time COLONOSCOPY Diarrhea documented as of this encounter Procedures Procedure Name Priority Date/Time Associated Diagnosis Comme nts INFLUENZA A, B, Routine 09/11/2019 10:29 AM Resul ts for this RSV, PCR, POCT RHEOSTAT ASSEMBLER procedure are in the results section. STREP GROUP A, PCR, Routine 09/11/2019 10:17 AM R esults for this POCT RHEOSTAT ASSEMBLER procedure are i n the results section. STREP GROUP A, PCR, Routine 09/11/2019 9:52 AM Pharyngitis Acu te Results for this POCT RHEOSTAT ASSEMBLER procedure are i n the results section. INFLUENZA A, B, Routine 09/11/2019 9:52 AM Cough Result s for this RSV, PCR, POCT RHEOSTAT ASSEMBLER procedure are in the results section. documented in this encounter Results Influenza A/B and RSV, PCR, Point of Care (09/11/2019 10:29 AM RHEOSTAT ASSEMBLER) P athologist Signature Influenza A, Negative Negative 09/11/2019 CNFL POCT 10:29 AM RHEOSTAT ASSEMBLER Influenza B, Negative Negative 09/11/2019 CNFL POCT 10:29 AM RHEOSTAT ASSEMBLER Resp Syncytial Negative Negative 09/11/2019 CNFL Virus, POCT 10:29 AM RHEOSTAT ASSEMBLER Specimen Anatomical Collection Method Collection Time Receive d Time (Source) Location / / Volume Laterality Varies 09/11/2019 10:29 09/11/2019 AM RHEOSTAT ASSEMBLER 10:30 AM RHEOSTAT ASSEMBLER Generic Rals LAB POCT ORDERABLES - DEVICE Performing Organization Address City/[facility] Phon e Number [address] [place] [address] [place] [address] [address] Strep Group A, PCR, Point of Care (09/11/2019 10:17 AM RHEOSTAT ASSEMBLER) P athologist Signature Strep Group A, Negative Negative 09/11/2019 CNFL PCR, POCT 10:17 AM RHEOSTAT ASSEMBLER Specimen Anatomical Collection Method Collection Time Receive d Time (Source) Location / / Volume Laterality Varies 09/11/2019 10:17 09/11/2019 AM RHEOSTAT ASSEMBLER 10:21 AM RHEOSTAT ASSEMBLER Generic Rals LAB POCT ORDERABLES - DEVICE Performing Organization Address [facility] Phon e Number [address] [place] [address] [place] [address] [address] Strep Group A, PCR, Point of Care (09/11/2019 9:52 AM RHEOSTAT ASSEMBLER) Analysis Performed At Patho logist Time Signature Strep Group A, Collected DEFAULT 09/11/2019 CNFL PCR, POCT 9:58 AM RHEOSTAT ASSEMBLER Specimen Anatomical Collection Method Collection Time Receive d Time (Source) Location / / Volume Laterality Varies (Throat) 09/11/2019 9:52 AM 2019 9:58 RHEOSTAT ASSEMBLER AM RHEOSTAT ASSEMBLER Kendal Camacho APRNNLebron., D.N.P. LAB POCT ORDERABL ES - DEVICE Performing Organization Address [facility] Code Phon e Number [address] [address] [place] [address] Influenza A/B and RSV, PCR, Point of Care (09/11/2019 9:52 AM RHEOSTAT ASSEMBLER) Analysis Performed At Patho logist Time Signature Influenza A, Collected DEFAULT 09/11/2019 CNFL B, RSV, PCR, 9:58 AM RHEOSTAT ASSEMBLER POCT Specimen Anatomical Collection Method Collection Time Receive d Time (Source) Location / / Volume Laterality Varies 09/11/2019 9:52 AM 0 9:58 (Nasopharynx) RHEOSTAT ASSEMBLER AM RHEOSTAT ASSEMBLER Kendal Camacho APRNN.P., D.N.P. LAB POCT ORDERABL ES - DEVICE Performing Organization Address [facility] Phon e Number [address] [address] [place] [address] documented in this encounter Visit Diagnoses Diagnosis Cough Unspecified Type - Primary Pharyngitis Acute Body Mass Index 50.0 To 59.9 Adult (HCC) Abuse Tobacco Smoking documented in this encounter Additional Health Concerns Assessment Noted Time PHQ-9 Depression Total Score: 3 05/30/2019 10:59 AM CD T documented as of this encounter Care Teams Radio Operator Relationship Specialty Start Date End Date Alberto Locke M.D. PCP - General Family Medicine 04/27/[address] [place] [address] NEHEMIAH Rivera [phone] documented as of this encounter
--- OUTSIDE RECORDS SUMMARY | 2022-07-08 08:52 | XMS_ITS | Encounter Summary ---
:1985 Author Organization [facility] Address [address] [place] [address] Care Team Providers Name Role Phone Blaire Bundy P.A.-C. Primary Care Provider [phone] Reason for Visit Auth/Cert Specialty Diagnoses / Procedures Referred By Contact Refer red To Contact Diagnoses Precipitate Labor (HCC) Procedures x Referral ID Status Reason Start Date Expiration Date Visits Requ ested Visits Authorized [id number] 1 1 Encounter Details Date Type Department Care Team Description 04/12/2019 [facility]est[facility] Alfonso Schmitz M.D., J.D. [address] [place] [phone] [address] Alfonso Tang, CLOTH SHEARING SUPERVISOR, DIRECTOR MEETINGS [address] [place] [phone] [place] [phone] Anesthesia Record Procedure Summary Procedure [...] h andoff to the receiving staff during [facility] ch we 1. Identified the patient [...] 1418 by Abdomen; and Antionette Marcos, R.N. Eckz-Cmdxqo-Pzsh groun dermabond; DRSG WELDER TECH d, Schedulin g WND ADH NEONAT 2X3.75 Automated Batch Job (x3); 05/13/21 (Removed by background completion utility); 1418 (Removed by background completion utility) (RETIRED) Incision 03/03/18; 0953; 03/03/18 0953 by 05/13/21 141 8 by Abdomen; dermabond; Darius Castro RBrittaneyN. [facility] katalina-Backgroun SPNG DRSG WELDER TECH GZ STRL d, Schedul ing 8PLY 2X2; [...] Fetzer, Megan J RRoverto Time: 1007 (created DIRECTOR MEETINGS via procedure documentation); Mask Ventilation: Not attempted; Type: Standard ETT; Single Lumen Tube Size: 7 mm; Cuffed: Yes; Location: Oral; Removal Date: 05/19/21 (Not present upon arrival to ED) (RETIRED) Incision 04/12/19; 1041; 04/12/19 1041 by 05/13/21 141 8 by Abdomen; [facility] AG Sarah Solis, [facility]-Backgroun SURG ADH 3.5X12 (x1); R.N. d, Schedul ing 05/13/21 (Removed by Automated B [facility] Job background completion utility); 1418 (Removed [...] How often do you attend mandaeism or rastafarian More than 4 time s [...] Procedure Summary Date: 04/12/19 Room / Location: [facility] / [facility] GI Anesthesia Start: 1003 Anesthesia Stop: 1140 [...] 1003 Procedure: SECTION (N/A ) Location: [address] 1401 / [facility] Surgeon: Xin De Leon M.D. Pertinent [...] Bonner CRNA RBrittaneyNBrittaney - 07/14/2019 1:05 PM FOOD PREPARATION WORKER Addendum created 07/14/19 1305 by Alfonso Bonner CRNA, R.NBrittaney Care Path modified PREPARATION WORKER Addendum Note - Alfonso Bonner CRNA RRoverto [...] documented as of this encounter Care Teams Eligibility And Occupancy Interviewer Relationship Specialty Start Date End Date Blaire Bundy P.A.-C. PCP - General 02/04/17 04/26/19 documented as of this encounter
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
--- OUTSIDE RECORDS SUMMARY | 2022-07-08 08:52 | XMS_ITS | Encounter Summary ---
:1985 Author Organization [facility] Address [address] [place] [address] Care Team Providers Name Role Phone Blaire Bundy P.A.-C. Primary Care Provider [phone] Reason for Visit Reason Comments Post-op Visit Outpatient (Routine) - Closed Specialty Diagnoses / Procedures Referred By Contact Refer red To Contact Obstetrics and Diagnoses PAR Melany Montoya [facility] Gynecology SENIOR COST ACCOUNTANT, CHRISTOPH, M.S.N., B.S.N., R.N. [address] [place] [address] Referral ID Status Reason Start Date Expiration Date Visits Requ ested Visits Authorized [id number] Closed 04/19/2019 04/18/2020 1 1 Encounter Details Date Type Department Care Team Description 04/20/2019 Office Visit Department of Melany Montoya, S ection Obstetrics and JOSEFA, CHRISTOPH, Delivery ([facility] ) Gynecology in [facility] M.S.N., B.S.N., (Primar y Dx) [place], [place] R.N. [address] [facility] [address] [place] [id number] Social History Tobacco Use [...] How often do you attend baptism or confucianism More than 4 time s [...] documented as of this encounter Care Teams Special Education Itinerant Teacher Relationship Specialty Start Date End Date Blaire Bundy P.A.-C. PCP - General 02/04/17 04/26/19 documented as of this encounter
--- OUTSIDE RECORDS SUMMARY | 2022-07-08 08:52 | XMS_ITS | Encounter Summary ---
:1985 Author Organization [facility] Address [address] [place] [address] Care Team Providers Name Role Phone Alberto Locke M.D. Primary Care Provider Encounter Details Date Type Department Care Team Description 04/25/2019 Orders Only Department of Family Alberto Locke M.D. Medicine, [facility], [address] [facility] [place] [address] [place] [address] [place] [address] [phone] Social History Tobacco Use Types Packs/Day Years [...] How often do you attend anglican or episcopalian More than 4 time s [...] documented as of this encounter Care Teams Microstrategy Reports Developer Relationship Specialty Start Date End Date Alberto Locke M.D. PCP - General Family Medicine 04/27/19 [address] [place] [address] documented as of this encounter
--- OUTSIDE RECORDS SUMMARY | 2022-07-08 08:52 | XMS_ITS | Encounter Summary ---
:1985 Author Organization [facility] Address [address] [place] [address] Care Team Providers Name Role Phone Blaire Bundy P.A.-C. Primary Care Provider [phone] Encounter Details Date Type Department Care Team Description 04/13/2019 Clinical Communication Department of Dawna Madera Obstetrics and Adelita Reddy Gynecology in [address] [address] [place] [phone] Social History Tobacco Use Types Packs/Day Years [...] How often do you attend denominational or religion More than 4 time s [...] documented as of this encounter Care Teams Music Library Assistant Relationship Specialty Start Date End Date Blaire Bundy P.A.-C. PCP - General 02/04/17 04/26/19 documented as of this encounter
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
--- OUTSIDE RECORDS SUMMARY | 2022-07-08 08:52 | XMS_ITS | Encounter Summary ---
:1985 Author Organization [facility] Address [address] [place] [address] Care Team Providers Name Role Phone Alberto Locke M.D. Primary Care Provider Reason for Referral Outpatient (Routine) - Closed Specialty Diagnoses / Procedures Referred By Contact Refer red To Contact Family Medicine Alberto Locke M.D. [address] [address] Referral ID Status Reason Start Date Expiration Date Visits Requ ested Visits Authorized [id number] Closed 04/27/2019 04/26/2020 1 1 Scheduling Instructions Depression, anemia Reason for Visit Reason Comments Establish Care Anemia post Encounter Details Date Type Department Care Team Description 04/27/2019 Comprehensive Visit Department of Alberto Locke Anemia (HCC) (Primary Dx); Family MedicineSera Other Hypotension; [facility], in [address] [place] [address] lvd Abuse Tobacco Smoking; [place], [place] Body Mass Index 50.0 To 59.9 Adult ([facility]); [address] [place] [address] Depression Major Recurrent ([facility]) [place], [place] [phone] [address] (Work) [phone] Social History Tobacco Use Types Packs/Day Years [...] How often do you attend mormonism or hindu More than 4 time s [...] She will discus permanent sterilization at upcoming SLITTER SERVICE AND SETTER follow up. Patient Active Problem List Diagnosis ??? Body Mass Index 50.0 To 59.9 Adult ([facility]) ??? Abuse Tobacco Smoking ??? Migraine Headache ??? Apnea Sleep Obstructive ??? Gastroesophageal Reflux Disease NOS ??? Attention Deficit With Hyperactivity Disorder ??? Depression Major Recurrent ([facility]) ??? Section Delivery ([facility]) Current Outpatient Medications Medication Sig [...] week Gets together: Once a week Attends hindu service: 1 to 4 times per year [...] SECTION; Surgeon: Xin De Leon M.D.; Location: [facility] OR ??? ENDOSCOPIC RETROGRADE CHOLANGIOPANCREATOGRAPHY (ERCP) N/A 11/08/2017 Procedure: ENDOSCOPIC RETROGRADE CHOLANGIOPANCREATOGRAPHY; Surgeon: Rubio Baker M.D.; Location: [facility] OR ??? ESOPHAGOGASTRODUODENOSCOPY N/A 11/11/2017 Procedure: ESOPHAGOGASTRODUODENOSCOPY; Surgeon: Rubio Baker M.D.; Location: [facility] GI LAB ??? LAPAROSCOPIC APPENDECTOMY N/A 09/08/2017 Procedure: LAPAROSCOPIC APPENDECTOMY; Surgeon: Edd Moeller D.O.; Location: [facility] OR ??? LAPAROSCOPIC CHOLECYSTECTOMY WITH CHOLANGIOGRAM N/A 03/03/2018 Procedure: LAPAROSCOPIC CHOLECYSTECTOMY POSSIBLE CHOLANGIOGRAM; Surgeon: Edd Moeller D.O.; Location: [facility] OR ??? OTHER CONVERTED SHX (SEE [...] She will discuss weight loss meds with SENIOR CUSTOMER SERVICE REPRESENTATIVE #5 Depression Major Recurrent (HCC) I will [...] Name Type Priority Associated Diagnoses Order S [facility] Outpatient Referral Routine Expec pipe: office visit [...] Organization Address City/State/ZIP Code Phon e Number [facility]- [address] [place], [place] [address] [place] [address] System in [place] [address] documented in this encounter Visit Diagnoses Diagnosis Anemia (HCC) - Prim shonna Other Hypotension Abuse Tobacco Smoking Body Mass Index 50.0 To 59.9 Adult (HCC) Depression Major Recurrent (HCC) documented in this encounter Additional Health Concerns Assessment Noted Time PHQ-9 Depression Total Score: 7 04/07/2017 9:39 AM CDT documented as of this encounter Care Teams Ore Digger Relationship Specialty Start Date End Date Alberto Locke M.D. PCP - General Family Medicine 04/27/19 [address] [place] [address] documented as of this encounter
--- OUTSIDE RECORDS SUMMARY | 2022-07-08 08:52 | XMS_ITS | Encounter Summary ---
:1985 Author Organization [facility] Address [address] [place] [address] Care Team Providers Name Role Phone Blaire Bundy P.A.-C. Primary Care Provider [phone] Encounter Details Date Type Department Care [...] How often do you attend orthodox or methodist More than 4 time s [...] seen for a Consultation on 04/17/19 at [facility] class for weight and feeding check. [...] documented as of this encounter Care Teams Dicer Operator Relationship Specialty Start Date End Date Blaire Bundy P.A.-C. PCP - General 02/04/17 04/26/19 documented as of this encounter
--- OUTSIDE RECORDS SUMMARY | 2022-07-08 08:52 | XMS_ITS | Encounter Summary ---
:1985 Author Organization [facility] Address [address] [place] [address] Care Team Providers Name Role Phone Blaire Bundy P.A.-C. Primary Care Provider Reason for Referral Outpatient (Routine) - Closed Specialty Diagnoses / Procedures Referred By Contact Refer red To Contact Obstetrics and Diagnoses PAR Melany Montoya [facility] Gynecology CHRISTOPH RIVERO, M.S.N., B.S.N., R.N. [address] [facility] [place] [address] Referral ID Status Reason Start Date Expiration Date Visits Requ ested Visits Authorized [id number] Closed 04/19/2019 04/18/2020 1 1 Scheduling Instructions Add to my schedule 0815 Reason for Visit Reason Comments Post-op Visit Encounter Details Date Type Department Care Team Description 04/19/2019 Office Visit Department of Melany Montoya, S ection Obstetrics and CHRISTOPH RIVERO, Delivery ([facility] ) Gynecology in [facility] M.S.NBrittaney, B.S.N., (Primar y Dx) [place], [place] R.N. [address] [facility] [address] [facility] [place] [address] [phone] Social History Tobacco Use Types Packs/Day Years [...] How often do you attend christian or islam More than 4 time s [...] documented as of this encounter Care Teams Correctional Program Officer Relationship Specialty Start Date End Date Blaire Bundy P.A.-C. PCP - General 02/04/17 04/26/19 documented as of this encounter
--- OUTSIDE RECORDS SUMMARY | 2022-07-08 08:53 | XMS_ITS | Encounter Summary ---
:1985 Author Organization [facility] Address [address] [place] [address] Care Team Providers Name Role Phone Blaire Bundy P.A.-C. Primary Care Provider [phone] Reason for Visit Outpatient (Routine) - Closed Specialty Diagnoses / Procedures Referred By Contact Refer red To Contact Diagnoses Gallstone With Common Bile Duct Stone Edd Moeller D.O. [address] [address] Referral ID Status Reason Start Date Expiration Date Visits Requ ested Visits Authorized [id number] Closed 02/09/2018 02/09/2019 1 1 Encounter Details Date Type Department Care Team Description 02/11/2018 Telemedicine Department of General Edd Moeller eamargaritathetic Medical Exam (Primary Dx); Surgery in Jason Rivera D.O. Gallstone With Common Bile Duct [place] [address] [place] [address] [place], [place] [phone] [address] (Work) [phone] Social History Tobacco Use Types Packs/Day Years [...] How often do you attend mandaen or jewish More than 4 time s per year 07/09/2020 services? Do you belong to any clubs or organizations No 04/19/2019 such as mandaen groups, unions, fraWinning Pitch or athletic groups, or school groups? How [...] - 02/11/2018 10:00 AM CDT Surgical Nurse Concrete Batching Plant Operator Skin Alert Assessment: Complete this section only [...] lying flat? no Do you have any jewish or other objection to having a blood transfusion? no Teaching: Preoperative education was done with (x) patient (_) parent (_) other. _ It was confirmed the patient/family member had received the following preoperative education sheets:Checklist For Surgical Patients ([id number]),???Surgical Site Infections ([id number]), Speak Up: Antibiotics ([id number]), ???Smoke Free, Advice for patients and visitors?? ([id number]), ???Your Guide to Pain Management ([id number]), Managing Your Pain After Surgery ([id number]) with the ???Healing Arts?? pamphlet ([id number]), and ???Appointments Required Before Your Surgery?? ([facility] [id number]). These were reviewed in detail. Additional Pamphlets also reviewed: (_)?? Parental Presence in the Operating Room?? ([facility]:Order Sets/Surgery/Home Instructions/Tonsillectomy Teaching Checklist/PE Tubes Teaching Sheet [...] appointments: 1st po with surgeon or physician medical support assistant: (x) made (_)TBD (_)Audiology appointment (PE [...] documented as of this encounter Care Teams C Software Developer Relationship Specialty Start Date End Date Blaire Bundy P.A.-C. PCP - General 02/04/17 04/26/19 documented as of this encounter
--- OUTSIDE RECORDS SUMMARY | 2022-07-08 08:53 | XMS_ITS | Encounter Summary ---
:1985 Author Organization [facility] Address [address] [place] [address] Care Team Providers Name Role Phone Blaire Bundy P.A.-C. Primary Care Provider [phone] Reason for Visit Reason Onset Date Comments assessment 07/01/2018 First call attempt Encounter Details Date Type Department Care Team Description 07/01/2018 Clinical Communication Department of Leonora Reaves Pr egnancy Obstetrics and JOSEFA C.N.PBrittaney assessment (First Gynecology in [address] call attem pt) [address] [phone] Social History Tobacco Use Types Packs/Day [...] How often do you attend quaker or islam More than 4 time s [...] Maurice Ivey R.N. - 07/04/2018 8:40 AM DANCE THERAPIST Addended by: MAURICE IVEY on: 07/04/2018 08:40 AM Modules accepted: Orders E THERAPIST Telephone Encounter - Maurice Ivey R.N. - 07/04/2018 8:36 AM DANCE THERAPIST If yes to any of the following [...] intercourse for two weeks before the procedure E THERAPIST Telephone Encounter - Jayshree Morocho R.N. - 07/01/2018 2:39 PM CST Attempted to contact pt. Left message on identifiable VM to [facility] for more information E THERAPIST Telephone Encounter - Tejal Arora - 07/01/2018 2:00 PM CST Dear Nurse, Patient is not on control and would like to have Nexplanon or an IUD placed. Is there a way you can call Carol and see if a test is needed, prior to appointment. Thank you, Tejal [employer] E THERAPIST documented in this encounter Plan of Treatment Scheduled Procedures Name Priority Associated Diagnoses Date/Time COLONOSCOPY Diarrhea documented as of this encounter Results Test, POCT, Urine (lab) (07/20/2018 10:24 AM DANCE THERAPIST) P athologist Signature Negative 07/20/2018 [facility] Test, POCT, U 10:31 AM DANCE THERAPIST [facility] Game Digital LAB Specimen Anatomical Collection Method Collection Time Receive d Time (Source) Location / / Volume Laterality Urine (Urine, 07/20/2018 10:24 07/20/2018 Clean Catch) AM DANCE THERAPIST 10:24 AM DANCE THERAPIST Marisol Irving APRN C.N.PBrittaney LAB POCT ORDERABLES - DEVICE Performing Organization Address City/State/ZIP Code Phon e Number [facility] [address] [place] [address] [facility] documented in this encounter Visit Diagnoses Diagnosis Contraception Personal History - Primary documented in this encounter Additional Health Concerns Assessment Noted Time PHQ-9 Depression Total Score: 7 04/07/2017 9:39 AM CDT documented as of this encounter Care Teams Scoop Machine Operator Relationship Specialty Start Date End Date Blaire Bundy P.A.-C. PCP - General 02/04/17 04/26/19 documented as of this encounter
--- OUTSIDE RECORDS SUMMARY | 2022-07-08 08:53 | XMS_ITS | Encounter Summary ---
:1985 Author Organization [facility] Address [address] [place] [address] Care Team Providers Name Role Phone Blaire Bundy P.A.-C. Primary Care Provider [phone] Reason for Referral Outpatient (Routine) - Closed Specialty Diagnoses / Procedures Referred By Contact Refer red To Contact General Surgery Diagnoses Calculus Of Bile Duct Without Cholangitis Or Cholecystitis With Obstruction par review Edd Moeller, [facility] Region Procedures RAY D.O. [address] [place] [address] Referral ID Status Reason Start Date Expiration Date Visits Requ ested Visits Authorized [id number] Closed 02/11/2018 02/11/2019 1 1 Encounter Details Date Type Department Care Team Description 02/11/2018 Orders Only Department of General Keo, Lydia Ca lculus Of Bile Duct Surgery in [facility] Without Cholangitis Or [place] [address] [facility] Chole[facility]stitis With [address] [place], [place] Obstruction ([place] [address] Dx) [phone] Social History Tobacco Use Types [...] often do you attend latter day or confucianism More than 4 time s [...] documented as of this encounter Care Teams Industrial Nurse Relationship Specialty Start Date End Date Blaire Bundy P.A.-C. PCP - General 02/04/17 04/26/19 documented as of this encounter
--- OUTSIDE RECORDS SUMMARY | 2022-07-08 08:53 | XMS_ITS | Encounter Summary ---
:[address] [facility] Address [address] [place] [address] Care Team Providers Name Role Phone Blaire Bundy P.A.-C. Primary Care Provider [phone] Reason for Referral Outpatient (Routine) - Closed Specialty Diagnoses / Procedures Referred By Contact Refer red To Contact General Surgery Diagnoses Gallstone With Common Bile Duct Stone par review Jaquan Monahan [facility] Region Procedures GNS POST OP D.O. [address] [place] [address] Referral ID Status Reason Start Date Expiration Date Visits Requ ested Visits Authorized [id number] Closed 03/03/2018 03/03/2019 1 1 Reason for Visit Auth/Cert Specialty Diagnoses / Procedures Referred By Contact Refer red To Contact Diagnoses Gallstone With Common Bile Duct Stone Procedures CA LAPAROSCOPY CHOLECYST W CHOLNG LAPAROSCOPIC CHOLECYSTECTOMY WITH CHOLANGIOGRAM Referral ID Status Reason Start Date Expiration Date Visits Requ ested Visits Authorized [id number] 1 1 Encounter Details Date Type Department Care Team Description 03/03/2018 Hospital Encounter [facility] OR Jaquan Monahan With [address] P, D.OBrittaney Common Bile Duct [place] [address] [place] [address] W [phone] [place], [place] [address] Social History Tobacco Use Types Packs/Day Years [...] often do you attend oriental orthodox or muslim More than 4 time s [...] through Care Everywhere.Home Care Following Gallbladder Surgery (Yoruba)documented in this encounter Medications at Time of [...] Role: * Jaquan Monahan D.O. - Primary Marketing Pr Intern: Naye Stockton L.P.N. Anesthesia Type: General Pre-Operative [...] of these were recovered in the suction movie machine operator. The gallbladder was placed in Endo-Catch bag [...] Name Type Priority Associated Diagnoses Order S [facility] General Surgery Outpatient Referral Routine Gallstone [...] Ref Test Analysis Performed At [facility] Method Time Signature PATHOLOGY Patient Name: PUNEET CLAYTON [facility] MR#: [id number] LAUREL Submitting Physician: JAQUAN MONAHAN DO [id number] Specimen #[id number] Performing Lab: ??[facility] ? [address] [facility] [address] Source: Gallbladder Clinical History/Pre-Op Gallstone with common [...] trabeculated. ??The mucosal wall measures 0.2 cm. ??Senior Analyst Developer sections are submitted in cassette A1. KG/ps ?? Diagnosis Gallbladder, cholecystectomy: CHOLELITHIASIS. Electronically Signed By USAMA MALDONADO MD - 03/04/2018 pjs/03/04/2018 Specimen (Source) Anatomical Collection Method Collection Time Re ceived Time Location / / Volume Laterality Tissue 03/03/2018 9:54 AM (Gallbladder) CDT Jaquan Monahan D.O. LAB SURG PATH ORDERABLES Performing Organization Address City/State/[facility] Phon e Number [facility] [address] [address] documented in this encounter Visit Diagnoses Diagnosis [...] 843 (Given - Provider: Rosalee Desir APRN, LEGAL PROJECT MANAGER) 500 mg, intravenous, at 200 mL/hr, Admin [...] (Rate/Dose Verify - Provider: Rosalee Desir APRN, LEGAL PROJECT MANAGER)1019 (Anesthesia Volume Adjustment - Provider: Rosalee Desir [...] documented as of this encounter Care Teams Wildlife Ecologist Relationship Specialty Start Date End Date Blaire Bundy P.A.-C. PCP - General 02/04/17 04/26/19 documented as of this encounter
--- OUTSIDE RECORDS SUMMARY | 2022-07-08 08:53 | XMS_ITS | Encounter Summary ---
:1985 Author Organization [facility] Address [address] [place] [address] Care Team Providers Name Role Phone Blaire Bundy P.A.-C. Primary Care Provider [phone] Reason for Visit Auth/Cert Specialty Diagnoses / Procedures Referred By Contact Refer red To Contact Diagnoses Gallstone With Common Bile Duct Stone Procedures [place] LAPAROSCOPY CHOLECYST W CHOLNG LAPAROSCOPIC CHOLECYSTECTOMY WITH CHOLANGIOGRAM Referral ID Status Reason Start Date Expiration Date Visits Requ ested Visits Authorized [id number] 1 1 Encounter Details Date Type Department Care Team Description 03/03/2018 Surgery [facility] MAIN OR Jaquan Monahan LAPAROSCOPIC [address] P, D.O. CHOLECYSTECTOMY POSSIBLE [place], [place] [address] CHOLANGIOGRAM [address] [place] [address] Social History Tobacco Use Types [...] How often do you attend spiritism or latter-day More than 4 time s [...] through Care Everywhere.Home Care Following Gallbladder Surgery (Latvian)documented in this encounter Medications at Time of [...] Role: * Jaquan Monahan D.O. - Primary Barrel Cooper: Naye Stockton L.P.N. Anesthesia Type: General Pre-Operative [...] of these were recovered in the suction manager service desk. The gallbladder was placed in Endo-Catch bag [...] Name Type Priority Associated Diagnoses Order S [facility] General Surgery Outpatient Referral Routine [...] Component Value Ref Test Analysis Performed At [facility] Range Method Time Signature PATHOLOGY Patient Name: PUNEET CLAYTON [facility] MR#: [id number] [facility] Submitting Physician: JAQUAN MONAHAN DO [id number] Specimen #[id number] Performing Lab: ??[facility] ? [address] [place] [address] Source: Gallbladder Clinical History/Pre-Op Gallstone with common [...] trabeculated. ??The mucosal wall measures 0.2 cm. ??Quality Improvement Coordinator (Rn) sections are submitted in cassette A1. KG/ps ?? Diagnosis Gallbladder, cholecystectomy: CHOLELITHIASIS. Electronically Signed By USAMA MALDONADO MD - 03/04/2018 pjs/03/04/2018 Specimen (Source) Anatomical Collection Method Collection Time Re ceived Time Location / / Volume Laterality Tissue 03/03/2018 9:54 AM (Gallbladder) CDT Jaquan Monahan D.O. LAB SURG PATH ORDERABLES Performing Organization Address City/State/ZIP Code Phon e Number [facility] [address] [place] [address] documented in this encounter Visit Diagnoses Diagnosis [...] 843 (Given - Provider: Rosalee Desir APRN, JOINT SEALER) 500 mg, intravenous, at 200 mL/hr, Admin ister over 30 Minutes, Once, On Bryanna 18 at 0715, For 1 dose, [...] APRN, BRENDA)1242 (Stopped - Provider: Melany Lira RRoverto) 20 mL/hr, intravenous, Continuous, Starting on Bryanna [...] (SUBLIMAZE) 1050 (Given - Provider: Melany Lira RRoverto)1052 (Given - Provider: Melany Lira RBrittaneyNBrittaney)1054 (Given - Provider: Melany Lira RBrittaneyNBrittaney)1058 (Given - Provider: Melany Lira RBrittaneyNBrittaney) 25 mcg, intravenous, Every 2 min PRN, [...] Provid er: Priti Raines.Hung) As needed, Starting on Bryanna 03/03/18 at 0959, Intra-Op lidocaine 10 mg/mL (1 %) injection (XYLOCAINE) (CANCELED) 0959 (Given - Provider: Priti Raines.OBrittaney) As needed, Starting on Bryanna 03/03/18 at [...] 1033, Drug Monitoring Program: Pharmacist to a [facility] medication order based on comorbities and indication. documented in this encounter Additional Health Concerns Assessment Noted Time PHQ-9 Depression Total Score: 7 04/07/2017 9:39 AM CDT documented as of this encounter Care Teams Scalp Specialist Relationship Specialty Start Date End Date Blaire Bundy P.A.-C. PCP - General 02/04/17 04/26/19 documented as of this encounter
--- OUTSIDE RECORDS SUMMARY | 2022-07-08 08:53 | XMS_ITS | Encounter Summary ---
:1985 Author Organization [facility] Address [address] [place] [address] Care Team Providers Name Role Phone Blaire Bundy P.A.-C. Primary Care Provider [phone] Encounter Details Date Type Department Care Team Description 07/21/2018 Orders Only Department of Obstetrics Leonora Reaves A PRN, and Gynecology in [address] [address] [place] [address] [phone] Social History Tobacco Use Types Packs/Day Years [...] How often do you attend moravian or yazidi More than 4 time s [...] documented as of this encounter Care Teams Probation Officer Relationship Specialty Start Date End Date Blaire Bundy P.A.-C. PCP - General 02/04/17 04/26/19 documented as of this encounter
--- OUTSIDE RECORDS SUMMARY | 2022-07-08 08:53 | XMS_ITS | Encounter Summary ---
:1985 Author Organization [facility] Address [address] [place] [address] Care Team Providers Name Role Phone Blaire Bundy P.A.-C. Primary Care Provider Encounter Details Date Type Department Care Team Description 02/09/2018 Clinical Communication Department of General Aline Dunbar Surgery in [employer], L, L.P.[address] [address] Social History Tobacco Use Types Packs/Day Years [...] documented as of this encounter Care Teams Filler Shaker Relationship Specialty Start Date End Date Blaire Bundy P.A.-C. PCP - General 02/04/17 04/26/19 documented as of this encounter
--- OUTSIDE RECORDS SUMMARY | 2022-07-08 08:53 | XMS_ITS | Encounter Summary ---
:1985 Author Organization [facility] Address [address] [place] [address] Care Team Providers Name Role Phone Blaire Bundy P.A.-C. Primary Care Provider [phone] Encounter Details Date Type Department Care Team Description 07/21/2018 Orders Only Department of Leonora Reaves, Morbid Obesi ty Body Obstetrics and CUSTOMER SUCCESS MANAGER, C.N.P. Mass Index 50.0-59.9 Gynecology in [facility] [address] Adult (HCC) ([place], [place] Dx) [address] [address] [place], [place] [phone] [address] (Work) [phone] Social History Tobacco Use Types Packs/Day Years [...] How often do you attend episcopal or temple More than 4 time s [...] Morbid Obesity Body Mass Index 50.0-59.9 Adult ([facility]) - Primary documented in this encounter Additional Health Concerns Assessment Noted Time PHQ-9 Depression Total Score: 7 04/07/2017 9:39 AM CDT documented as of this encounter Care Teams Wireless Architect Relationship Specialty Start Date End Date Blaire Bundy P.A.-C. PCP - General 02/04/17 04/26/19 documented as of this encounter
--- OUTSIDE RECORDS SUMMARY | 2022-07-08 08:53 | XMS_ITS | Encounter Summary ---
:1985 Author Organization [facility] Address [address] [place] [address] Care Team Providers Name Role Phone Blaire Bundy P.A.-C. Primary Care Provider [phone] Reason for Visit Reason Comments Contraception Appointment Request (Routine) - Closed Specialty Diagnoses / Procedures Referred By Contact Refer red To Contact Obstetrics and Diagnoses PAR [facility] Gynecology Procedures OBG NEW STAKEHOLDER MANAGER Referral ID Status Reason Start Date Expiration Date Visits Requ ested Visits Authorized [id number] Closed 07/01/2018 07/01/2019 1 1 Encounter Details Date Type Department Care Team Description 07/20/2018 Comprehensive Visit Department of Leonora Villaseñor Inser tion Contraceptive Subdermal (Primary Dx); Obstetrics and COACH BUILDER, C.N.P. Morbid Obesity Body Mass Index 50.0-59.9 Adult (HCC) Gynecology in [address] [address] Social History Tobacco Use [...] How often do you attend buddhist or yazdanism More than 4 time s [...] Comments Blood Pressure 140/90 07/20/2018 10:50 AM FLOUR DISTRIBUTOR Pulse - - Temperature - - Respiratory Rate - - Oxygen Saturation - - Inhaled Oxygen Concentration - - Weight 142 kg (313 lb 0.9 oz) 07/20/2018 10:50 AM FLOUR DISTRIBUTOR Height - - Body Mass Index 57.24 [...] the patient and/or decision maker.: Not addressed [place] protocol: All relevant documentation and testing were [...] completed successfully: yes Complications: no apparent complications STAKEHOLDER MANAGER Subjective: Patient is here to discuss control [...] not yet be positive. According to the [facility] quick start control care model she will repeat a test at home in 1-2 weeks, and return to clinic if a positive test. Backup control is advised for 1 week. She also has questions about weight loss surgery, weight loss. Consult is placed to [facility] in [place]. R DISTRIBUTOR documented in this encounter Plan of Treatment Scheduled Procedures Name Priority Associated Diagnoses Date/Time COLONOSCOPY Diarrhea documented as of this encounter Procedures Procedure Name Priority Date/Time Associated Diagnosis Comme nts MT INS Routine 07/20/2018 11:00 Insertion Results for this NON-BIODEGRADABLE AM FLOUR DISTRIBUTOR Contraceptive procedure are in DRUG DEL Subdermal the results section. documented in this encounter Results MT INS NON-BIODEGRADABLE DRUG DEL (07/20/2018 11:00 AM FLOUR DISTRIBUTOR) Narrative MMODAL - 07/20/2018 11:00 AM FLOUR DISTRIBUTOR Leonora Villaseñor, JOSEFA, C.N.P. ? 07/20/2018 ??1:27 [...] the patient and/or decision maker.: ??Not addressed [place] protocol: ??All relevant documentation and testin g [...] 68 mg subdermal Given 07/20/2018 1:21 PM FLOUR DISTRIBUTOR 1 each implant 1 each (NEXPLANON) 1 each, subdermal, One-Time, Starting on Wed07/20/18 at 1321, For 1 dose documented in this encounter Additional Health Concerns Assessment Noted Time PHQ-9 Depression Total Score: 7 04/07/2017 9:39 AM CDT documented as of this encounter Care Teams Continuous Mining Machine Operator Relationship Specialty Start Date End Date Blaire Bundy PBrittaneyABrittaney-C. PCP - General 02/04/17 04/26/19 documented as of this encounter
--- OUTSIDE RECORDS SUMMARY | 2022-07-08 08:53 | XMS_ITS | Encounter Summary ---
:1985 Author Organization [facility] Address [address] [place] [address] Care Team Providers Name Role Phone Blaire Bundy P.A.-C. Primary Care Provider [phone] Reason for Referral Outpatient (Routine) - Closed Specialty Diagnoses / Procedures Referred By Contact Refer red To Contact Diagnoses Gallstone Edd Moeller D.O. [facility] Region Procedures FL Fluoro Less Than 1 Hour ME FLUOROSCOPY EXAM UP TO 1 HR HC FLUOROSCOPY EXAM UP TO 1 HR ME FLUOROSCOPY EXAM UP TO 1 HR [address] [place] [address] Referral ID Status Reason Start Date Expiration Date Visits Requ ested Visits Authorized [id number] Closed 03/03/2018 03/03/2019 1 1 Reason for Visit Auth/Cert Specialty Diagnoses / Procedures Referred By Contact Refer red To Contact Diagnoses Gallstone With Common Bile Duct Stone Procedures ME LAPAROSCOPY CHOLECYST W CHOLNG LAPAROSCOPIC CHOLECYSTECTOMY WITH CHOLANGIOGRAM Referral ID Status Reason Start Date Expiration Date Visits Requ ested Visits Authorized [id number] 1 1 Encounter Details Date Type Department Care Team Description 03/03/2018 Hospital Encounter Department of Radiology Raphael Moeller, Gallstone in [place] D.O. [address] [place] [address] [place] [address] [phone] (Wo rk) Social History Tobacco Use Types [...] often do you attend jehovah's witness or roman catholic More than 4 time [...] Time Received Time / Laterality Volume Narrative [id number] - 03/03/2018 10:01 AM CDT This exam does not require a radiologist review or interpretation. Please refer to the patient? s medical record on this date for clinical details. Edd Moeller D.O. IMSendy FLUOROSCOPY PROCEDURES Performing Organization Address City/State/ZIP Code Phon e Number [id number] NA documented in this encounter Visit Diagnoses Diagnosis Gallstone documented in this encounter Additional Health Concerns Assessment Noted Time PHQ-9 Depression Total Score: 7 04/07/2017 9:39 AM CDT documented as of this encounter Care Teams Social Media Specialist Relationship Specialty Start Date End Date Blaire Bundy P.A.-C. PCP - General 02/04/17 04/26/19 documented as of this encounter
--- OUTSIDE RECORDS SUMMARY | 2022-07-08 08:53 | XMS_ITS | Encounter Summary ---
:1985 Author Organization [facility] Address [address] [place] [address] Care Team Providers Name Role Phone Blaire Bundy P.A.-C. Primary Care Provider Reason for Visit Reason Comments Other right big toe infection? Appointment Request (Routine) - Closed Specialty Diagnoses / Procedures Referred By Contact Refer red To Contact Family Medicine Referral ID Status Reason Start Date Expiration Date Visits Requ ested Visits Authorized [id number] Closed 11/22/2017 05/21/2018 1 1 Encounter Details Date Type Department Care Team Description 11/23/2017 Office Visit Department of Family Blaire Bundy Cell ulitis Toe Right Medicine, [place] [facility] (Primary Dx) Clinic, in [address] [phone] [address] (Work) [phone] Social History Tobacco Use Types Packs/Day Years [...] How often do you attend buddhism or yazdanism More than 4 time s [...] documented as of this encounter Care Teams Buhr Mill Operator Relationship Specialty Start Date End Date Blaire Bundy P.A.-C. PCP - General 02/04/17 04/26/19 documented as of this encounter
--- OUTSIDE RECORDS SUMMARY | 2022-07-08 08:53 | XMS_ITS | Encounter Summary ---
:1985 Author Organization [facility] Address [address] [place] [address] Care Team Providers Name Role Phone Blaire Bundy P.A.-C. Primary Care Provider [phone] Encounter Details Date Type Department Care Team Description 07/20/2018 Hospital Encounter Department of Marisol Irving Contrace ption Personal Laboratory Medicine MEDICAL TRANSCRIPTIONIST, C.N.P. History in [address] [address] [place], [place] [phone] [address] (Work) [phone] Social History Tobacco Use Types Packs/Day Years [...] How often do you attend caodaism or judaism More than 4 time s [...] Results for this POCT, U (LAB) AM TACTICAL DECEPTION PLANS OFFICER History procedure are in the results section. documented in this encounter Results Test, POCT, Urine (lab) (07/20/2018 10:24 AM TACTICAL DECEPTION PLANS OFFICER) P athologist Signature Negative 07/20/2018 [facility] Test, POCT, U 10:31 AM TACTICAL DECEPTION PLANS OFFICER [facility] Specimen Anatomical Collection Method Collection Time Receive d Time (Source) Location / / Volume Laterality Urine (Urine, 07/20/2018 10:24 07/20/2018 Clean Catch) AM TACTICAL DECEPTION PLANS OFFICER 10:24 AM TACTICAL DECEPTION PLANS OFFICER Kendal Carter APRNNJud LAB POCT ORDERABLES - DEVICE Performing Organization Address City/State/ZIP Code Phon e Number [facility] [address] [place] [address] [place] [address] [facility] documented in this encounter Visit Diagnoses Diagnosis Contraception Personal History documented in this encounter Additional Health Concerns Assessment Noted Time PHQ-9 Depression Total Score: 7 04/07/2017 9:39 AM CDT documented as of this encounter Care Teams Hris Specialist Relationship Specialty Start Date End Date Blaire Bundy P.A.-C. PCP - General 02/04/17 04/26/19 documented as of this encounter
--- OUTSIDE RECORDS SUMMARY | 2022-07-08 08:53 | XMS_ITS | Encounter Summary ---
:1985 Author Organization [facility] Address [address] [place] [address] Care Team Providers Name Role Phone Blaire Bundy P.A.-C. Primary Care Provider [phone] Reason for Visit Reason Comments Post-op Lap emma 03/03/18 Outpatient (Routine) - Closed Specialty Diagnoses / Procedures Referred By Contact Refer red To Contact General Surgery Diagnoses Gallstone With Common Bile Duct Stone par review Edd Moeller, [facility] Procedures GNS POST OP D.O. [address] [place] [address] Referral ID Status Reason Start Date Expiration Date Visits Requ ested Visits Authorized [id number] Closed 03/03/2018 03/03/2019 1 1 Encounter Details Date Type Department Care Team Description 03/16/2018 Office Visit Department of General Edd Moeller Ga llstone With Common Surgery in Jason Rivera D.O. Bile Duct Stone [place] [address] [facility] [address] [place] [address] [place] [phone] (Work) [phone] Social History Tobacco Use Types Packs/Day Years [...] How often do you attend restoration or yazidi More than 4 time s [...] happy to reevaluate as needed Job ID: [id number] documented in this encounter Plan of Treatment Scheduled Procedures Name Priority Associated Diagnoses Date/Time COLONOSCOPY Diarrhea documented as of this encounter Visit Diagnoses Diagnosis Gallstone With Common Bile Duct Stone documented in this encounter Additional Health Concerns Assessment Noted Time PHQ-9 Depression Total Score: 7 04/07/2017 9:39 AM CDT documented as of this encounter Care Teams Plasma Table Operator Relationship Specialty Start Date End Date Blaire Bundy P.A.-C. PCP - General 02/04/17 04/26/19 documented as of this encounter
--- OUTSIDE RECORDS SUMMARY | 2022-07-08 08:53 | XMS_ITS | Encounter Summary ---
:1985 Author Organization [facility] Address [address] [place] [address] Care Team Providers Name Role Phone Blaire Bundy P.A.-C. Primary Care Provider [phone] Reason for Referral Outpatient (Routine) - Closed Specialty Diagnoses / Procedures Referred By Contact Refer red To Contact Diagnoses Gallstone With Common Bile Duct Stone Edd Moeller D.O. [facility] [address] [address] Referral ID Status Reason Start Date Expiration Date Visits Requ ested Visits Authorized [id number] Closed 02/09/2018 02/09/2019 1 1 Reason for Visit Reason Comments Cholelithiasis Outpatient (Routine) - Closed Specialty Diagnoses / Procedures Referred By Contact Refer red To Contact General Surgery Diagnoses Gallstone With Common Bile Duct Stone Blaire Bundy [facility] [place] doyle P.A.-C. [address] [place], [place] [address] Referral ID Status Reason Start Date Expiration Date Visits V isits Requested Authorized [id number] Closed Specialty 11/19/2017 05/18/2018 1 1 Services Required Encounter Details Date Type Department Care Team Description 02/09/2018 Comprehensive Visit Department of Juan Moeller Posthemorrhagic Acute (Primary Dx); General Surgery in Edd Gomez, Gallstone With Common Bile Duct Stone Marko Maxwell D.O. [address] [facility] [address] [place] [address] [phone] Social History Tobacco Use Types Packs/Day Years [...] How often do you attend voodoo or jain More than 4 time s [...] She denies alcohol use. She works at [employer] in [employer]. OBJECTIVE PHYSICAL EXAMINATION General: Ms. Cooley is [...] scheduled in the near future. Job ID: [id number] documented in this encounter Plan of Treatment Scheduled Procedures Name Priority Associated Diagnoses Date/Time COLONOSCOPY Diarrhea Scheduled Referrals Name Type Priority Associated Order Schedule Diagnoses Pre Operative Outpatient Referral Routine Gallstone With Expec pipe: Evaluation RAY nurse Common Bile Duct consult (clinic) Stone (Approximat e), Expires: 02/09/2021 documented as of this encounter Results (ABNORMAL) CBC with Differential, Blood (02/18/2018 10:42 AM CDT) [facility] Method Time Signature Hemoglobin 11.3 (L) 11.6 - 02/18/2018 [facility] 15.0 g/dL 10:54 AM T [facility] [employer] [facility] Hematocrit 37.3 35.5 - 02/18/2018 [facility] 44.9 % 10:54 AM T [facility] [employer] [facility] Erythrocytes 4.95 3.92 - 02/18/2018 [facility] 5.13 10:54 AM T [facility] x10(12)/L [facility] [employer] [facility] MCV 75.4 (L) 78.2 - 02/18/2018 [facility] 97.9 fL 10:54 AM [facility] RBC Distrib Width 15.3 12.2 - 02/18/2018 [facility] 16.1 % 10:54 AM T [facility] [employer] [facility] Platelet Count 285 157 - 371 02/18/2018 [facility] x10(9)/L 10:54 AM [facility] [employer] [facility] Leukocytes 7.0 3.4 - 9.6 02/18/2018 [facility] x10(9)/L 10:54 AM [facility] [employer] [facility] Neutrophils 4.71 1.56 - 02/18/2018 [facility] 6.45 10:54 AM CDT [facility] x10(9)/L [facility] [place] [facility] Lymphocytes 1.76 0.95 - 02/18/2018 [facility] 3.07 10:54 AM CDT [facility] Monocytes 0.35 0.26 - 02/18/2018 [facility] 0.81 10:54 AM CDT [facility](9[facility] Eosinophils 0.18 0.03 - 02/18/2018 [facility] 0.48 10:54 AM CDT [facility] Basophils 0.03 0.01 - 02/18/2018 [facility] 0.08 10:54 AM CDT [facility] Specimen Anatomical Collection Method Collection Time Receive d Time (Source) Location / / Volume Laterality Blood (Blood, 02/18/2018 10:42 02/18/2018 Venous) AM CDT 10:46 AM CDT Edd Moeller D.O. LAB BLOOD ADD-ON Performing Organization Address City/State/[facility] Code Phon e Number [facility]- [address] [place] [address] LAB documented in this encounter Visit Diagnoses Diagnosis Anemia Posthemorrhagic Acute (Blood Loss Anemia) - Primary Gallstone With Common Bile Duct Stone documented in this encounter Additional Health Concerns Assessment Noted Time PHQ-9 Depression Total Score: 7 04/07/2017 9:39 AM CDT documented as of this encounter Care Teams Trust Vault Clerk Relationship Specialty Start Date End Date Blaire Bundy P.A.-C. PCP - General 02/04/17 04/26/19 documented as of this encounter
--- OUTSIDE RECORDS SUMMARY | 2022-07-08 08:53 | XMS_ITS | Encounter Summary ---
:1985 Author Organization [facility] Address [address] [place] [address] Care Team Providers Name Role Phone Blaire Bundy P.A.-C. Primary Care Provider Reason for Referral Outpatient (Routine) - Closed Specialty Diagnoses / Procedures Referred By Contact Refer red To Contact Orthopedic Surgery Diagnoses Pain Toe Pain Toe Blaire Bundy [facility] Procedures ORS CONS FOOT POD P.A.-C. [address] [place], [place] [address] Referral ID Status Reason Start Date Expiration Date Visits Requ ested Visits Authorized [id number] Closed 02/18/2018 02/18/2019 1 1 Scheduling Instructions [...] Cholecystitis With Obstruction par review Edd Moeller [facility] Procedures RAY D.O. [address] [place] [address] Referral ID Status Reason Start Date Expiration Date Visits Requ ested Visits Authorized [id number] Closed 02/11/2018 02/11/2019 1 1 Encounter Details Date Type Department Care Team Description 02/18/2018 Office Visit Department of Family Blaire Bundy perative Exam (Primary Dx); MedicineFlorentino P.A.-C. 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; [facility] [address] Elvis Swenson Gallstone With Common Bile Duct Stone; [place], [place] Anemia Pos themorrhagic Acute; [place] [address] Pain [address] [place] [address] [address] [phone] [place], [place] (Work) [address] Social History Tobacco Use [...] How often do you attend mosque or mormon More than 4 time s [...] having a cholecystomy with Dr. Moeller in [place] on 03/03/2018. The patient notes she continues [...] 50.0 To 59.9 Adult ([facility]) ??? Abuse Tobacco Smoking- Smokes infrequently/socially, 1-2 [...] Surgeon: Rubio Baker M.D.; Location: [facility] OR ??? ESOPHAGOGASTRODUODENOSCOPY N/A 11/11/2017 Procedure: ESOPHAGOGASTRODUODENOSCOPY; Surgeon: Rubio Baker M.D.; Location: [facility] GI LAB ??? LAPAROSCOPIC APPENDECTOMY N/A 09/08/2017 Procedure: LAPAROSCOPIC APPENDECTOMY; Surgeon: Edd Moeller D.O.; Location: [facility] OR ??? OTHER CONVERTED SHX (SEE COMMENT) [...] with Differential, Blood (02/18/2018 10:42 AM CDT) [facility] gist Method Time Signature Hemoglobin 11.3 (L) 11.6 - 02/18/2018 [facility] 15.0 g/dL 10:54 AM CDT [facility] [employer] [facility] Hematocrit 37.3 35.5 - 02/18/2018 [facility] 44.9 % 10:54 AM CDT [facility] Erythrocytes 4.95 3.92 - 02/18/2018 [facility] 5.13 10:54 AM CDT [facility]ALTH x10(12)/L [facility] MCV 75.4 (L) 78.2 - 02/18/2018 [facility] 97.9 fL 10:54 AM CDT [facility] RBC Distrib Width 15.3 12.2 - 02/18/2018 [facility] 16.1 % 10:54 AM CDT [facility] Platelet Count 285 157 - 371 02/18/2018 [facility] x10(9)/L 10:54 AM CDT [facility] Leukocytes 7.0 3.4 - 9.6 02/18/2018 [facility] x10(9)/L 10:54 AM CDT [facility] Neutrophils 4.71 1.56 - 02/18/2018 [facility] 6.45 10:54 AM CDT HEALTH x10(9)/L [facility] Lymphocytes 1.76 0.95 - 02/18/2018 [facility] 3.07 10:54 AM CDT [facility]ALTH x10(9)/L [facility] [facility] Monocytes 0.35 0.26 - 02/18/2018 [facility] 0.81 10:54 AM CDT HEALTH x10(9)/L [facility] [place] [facility] Eosinophils 0.18 0.03 - 02/18/2018 [facility] 0.48 10:54 AM CDT HEALTH x10(9)/L [facility] [place] [facility] Basophils 0.03 0.01 - 02/18/2018 [facility] 0.08 10:54 AM CDT [facility]ALTH x10(9)/L [employer] [employer] [facility] Specimen Anatomical Collection Method Collection Time Receive d Time (Source) Location / / Volume Laterality Blood (Blood, 02/18/2018 10:42 02/18/2018 Venous) AM CDT 10:46 AM CDT Edd Moeller D.O. LAB BLOOD ADD-ON Performing Organization Address City/State/ZIP Code Phon e Number [facility]- [address] [address] [place] [facility] documented in this encounter Visit Diagnoses [...] as of this encounter Care Teams Environmental Marketing Representative Relationship Specialty Start Date End Date Blaire Bundy P.A.-C. PCP - General 02/04/17 04/26/19 documented as of this encounter
--- OUTSIDE RECORDS SUMMARY | 2022-07-08 08:53 | XMS_ITS | Encounter Summary ---
:1985 Author Organization [facility] Address [address] [place] [address] Care Team Providers Name Role Phone Blaire Bundy P.A.-C. Primary Care Provider Encounter Details Date Type Department Care Team Description 03/14/2018 Orders Only Department of Gloria Johnson High Risk Medication Orthopedic Surgery in [place], D.P.M. (Primary Dx) [place], [place] [address] [place]AB[place] [address] [place] [address] [phone] Social History Tobacco Use Types Packs/Day Years [...] How often do you attend rastafari or islam More than 4 time s [...] documented as of this encounter Care Teams Pharmacognosist Relationship Specialty Start Date End Date Blaire Bundy P.A.-C. PCP - General 02/04/17 04/26/19 documented as of this encounter
--- OUTSIDE RECORDS SUMMARY | 2022-07-08 08:53 | XMS_ITS | Encounter Summary ---
:1985 Author Organization [facility] Address [address] [place] [address] Care Team Providers Name Role Phone Blaire Bundy P.A.-C. Primary Care Provider [phone] Reason for Visit Auth/Cert Specialty Diagnoses / Procedures Referred By Contact Refer red To Contact Diagnoses Gallstone With Common Bile Duct Stone Procedures NM LAPAROSCOPY CHOLECYST W CHOLNG LAPAROSCOPIC CHOLECYSTECTOMY WITH CHOLANGIOGRAM Referral ID Status Reason Start Date Expiration Date Visits Requ ested Visits Authorized [id number] 1 1 Encounter Details Date Type Department Care Team Description 03/03/2018 Anesthesia Event [facility] MAIN OR Matthew Plascencia M.D. [address] [facility] [address] [facility] [place] [address] [place] [phone] [address] (Wo rk) Anesthesia Record Procedure Summary [...] by and dermabond; Antionette Cooper CRT, R.N. [facility] WND ADH NEONAT 2X3.75 d, Schedul ing [...] 1015 by Placement Time: 0837 Rosalee Xiong, BEAD STRINGER, Rosalee Xiong, BEAD STRINGER, (created via procedure ORCHARDIST ORCHARDIST documentation); Mask Ventilation: Oral/Nasal airway needed; Type: Standard ETT; Single Lumen Tube Size: 7 mm; Cuffed: Yes; Location: Oral; Removal Date: 03/03/18; Removal Time: 1015 (RETIRED) Incision 03/03/18; 952; Abdomen; 03/03/18 0953 by 1418 by Darius Coyle CRT, R.N. May [id number]-Lraowh-[id number] GZ STRL 8PLY 2X2; d, Scheduling 05/13/21 (Removed by Automated B [facility] Job background completion utility); 1418 (Removed [...] How often do you attend jewish or caodaism More than 4 time s [...] Date: 03/03/18 Room / Location: OR 03 [facility] 1404 / [facility] OR Anesthesia Start: 826 Anesthesia Stop: [...] patient / legal guardian, or through an global category manager; patient evaluated and approved for anesthesia / [...] event: no complications Procedure Note Rosalee Xiong, BEAD STRINGER, ORCHARDIST - 03/03/2018 8 :54 AM CDT Airway [...] as of this encounter Care Teams Continuous Improvement Intern Relationship Specialty Start Date End Date Blaire Bundy P.A.-C. PCP - General 02/04/17 04/26/19 documented as of this encounter
--- OUTSIDE RECORDS SUMMARY | 2022-07-08 08:53 | XMS_ITS | Encounter Summary ---
:[address] [facility] Address [address] [place] [address] Care Team Providers Name Role Phone Blaire [...] Diagnoses Pain Toe Pain Toe Blaire Bundy, [facility] Procedures ORS CONS FOOT POD P.A.-C. [address] [place], [place] [address] Referral ID Status Reason Start Date Expiration Date Visits Requ ested Visits Authorized [id number] Closed 02/18/2018 02/18/2019 1 1 Encounter Details Date Type Department Care Team Description 03/14/2018 Comprehensive Visit Department of Riccardo Cottrell, Ingrown Nail (Primary Dx); Orthopedic Surgery Mickey Nuñez Pain Toe; in [place], [facility] [address] FABIAN Onychomycosis; [place], [place] High Risk Medication [address] [place] [phone] [place], [place] [phone] (Work) [phone] Social History Tobacco Use Types Packs/Day Years [...] How often do you attend synagogue or restorationist More than 4 time s [...] Hepatic Function Panel (03/14/2018 10:04 AM CDT) [facility] Method Time Signature Bilirubin, Total, S 0.9 <=1.2 03/14/2018 [facility] mg/dL 10:53 AM [facility] Bilirubin, Direct, S 0.2 0.0 - 0.3 03/14/2018 [facility] mg/dL 10:53 AM [facility] Aspartate 18 8 - 43 03/14/2018 [facility] Aminotransferase U/L 10:53 AM CDT [facility]ALTH (AST[facility] S [facility] Alanine 15 7 - 45 03/14/2018 [facility] Aminotransferase U/L 10:53 AM CDT HEALTH (ALT), S [facility] Alkaline 69 37 - 98 03/14/2018 [facility] Phosphatase, S U/L 10:53 AM CDT [facility] Albumin, S 3.5 3.5 - 5.0 03/14/2018 [facility] g/dL 10:53 AM CDT [facility] Protein, Total, S 6.2 (L) 6.3 - 7.9 03/14/2018 [facility] g/dL 10:53 AM CDT [facility] Specimen Anatomical Collection Method Collection Time Receive d Time (Source) Location / / Volume Laterality Blood (Blood, 03/14/2018 10:04 03/14/2018 Venous) AM CDT 10:09 AM CDT Gloria Johnson D.P.M. LAB BLOOD ADD-ON Performing Organization Address City/State/[facility] Code Phon e Number [facility]- [id number] [place] [id number] [facility] documented in this encounter Visit Diagnoses Diagnosis Ingrown Nail - Primary Pain Toe Onychomycosis High Risk Medication documented in this encounter Additional Health Concerns Assessment Noted Time PHQ-9 Depression Total Score: 7 04/07/2017 9:39 AM CDT documented as of this encounter Care Teams Sugarcane Research Technician Relationship Specialty Start Date End Date Blaire Bundy P.A.-C. PCP - General 02/04/17 04/26/19 documented as of this encounter
--- OUTSIDE RECORDS SUMMARY | 2022-07-08 08:53 | XMS_ITS | Encounter Summary ---
:1985 Author Organization [facility] Address [address] [place] [address] Care Team Providers Name Role Phone Blaire Bundy P.A.-C. Primary Care Provider [phone] Encounter Details Date Type Department Care Team Description 05/11/2018 Immunization Department of Blaire Bundy P.A.-C. [address] [place], [place] [id number] Need Vaccine Pediatrics in [place] Zeinab Gong, L.P.N. [address] [place] [address] Immunization ([place], [place] Dx) [address] [place] [address] Social History Tobacco Use Types [...] How often do you attend cheondoism or scientologist More than 4 time s [...] documented as of this encounter Care Teams Mathematical Scientist Relationship Specialty Start Date End Date Blaire Bundy P.A.-C. PCP - General 02/04/17 04/26/19 documented as of this encounter
--- OUTSIDE RECORDS SUMMARY | 2022-07-08 08:54 | XMS_ITS | Encounter Summary ---
:1985 Author Organization [facility] Address [address] [place] [address] Care Team Providers Name Role Phone Blaire Bundy P.A.-C. Primary Care Provider Encounter Details Date Type Department Care Team Description 11/12/2017 - Hospital Encounter HX RST Cassidy Sandhu, 11/13/2017 Sera, M.S. [address] [place] [phone] (Wo rk) Social History Tobacco Use Types [...] How often do you attend adventist or alevism More than 4 time s [...] CBC with Differential (11/13/2017 7:23 AM CDT) [facility] Method Time Signature Hemoglobin 8.2 (L) 12.0 - [facility] 15.5 G/DL LABORATORIES [facility] Hematocrit 26.0 (L) 34.9 - [facility] 44.5 % LABORATORIES [facility] RBC Distrib 15.2 11.9 - [facility] Width 15.5 % LABORATORIES [facility] Platelet Count 229 150 - 450 [facility] X10(9)/L LABORATORIES [facility] Leukocytes 10.1 3.5 - [facility] 10.5 LABORATORIES - X10(9)/L [facility] Neutrophils 7.11 (H) 1.70 - [facility] 7.00 LABORATORIES - X10(9)/L [facility] Lymphocytes 2.38 0.90 - [facility] 2.90 LABORATORIES - X10(9)/L [facility] Monocytes 0.52 0.30 - [facility] 0.90 LABORATORIES - X10(9)/L [facility] Erythrocytes 2.93 (L) 3.90 - [facility] 5.03 LABORATORIES - X10(12)/L [facility] MCV 88.7 81.6 - [facility] 98.3 FL LABORATORIES - [facility] Eosinophils 0.03 (L) 0.05 - [facility] 0.50 LABORATORIES - X10(9)/L [facility] Basophils <0.03 0.00 - [facility] 0.30 LABORATORIES - X10(9)/L [facility] Specimen Anatomical Collection Method Collection Time Receive d Time (Source) Location / / Volume Laterality 11/13/2017 7:23 AM 8 7:23 CDT AM CDT Historical Provider LAB BLOOD ADD-ON Performing Organization Address City/State/ZIP Code Phon e Number [facility] LABORATORIES - [address] [place], [place] [address] [facility] (ABNORMAL) CBC with Differential (11/12/2017 7:48 PM CDT) [facility] gist Method Time Signature Hemoglobin 8.6 (L) 12.0 - [facility] 15.5 G/DL LABORATORIES - [facility] Hematocrit 26.2 (L) 34.9 - [facility] 44.5 % LABORATORIES - [facility] Erythrocytes 3.04 (L) 3.90 - [facility] 5.03 LABORATORIES - X10(12)/L [facility] MCV 86.2 81.6 - [facility] 98.3 FL LABORATORIES - [facility] RBC Distrib 15.0 11.9 - [facility] Width 15.5 % LABORATORIES - [facility] Platelet Count 210 150 - 450 [facility] X10(9)/L LABORATORIES - [facility] Leukocytes 10.3 3.5 - [facility] 10.5 LABORATORIES - X10(9)/L [facility] Neutrophils 9.08 (H) 1.70 - [facility] 7.00 LABORATORIES - X10(9)/L [facility] Lymphocytes 1.03 0.90 - [facility] 2.90 LABORATORIES - X10(9)/L [facility] Monocytes 0.17 (L) 0.30 - [facility] 0.90 LABORATORIES - X10(9)/L [facility] Eosinophils <0.03 (L) 0.05 - [facility] 0.50 LABORATORIES - X10(9)/L [facility] Basophils <0.03 0.00 - [facility] 0.30 LABORATORIES - X10(9)/L [facility] Specimen Anatomical Collection Method Collection Time Receive d Time (Source) Location / / Volume Laterality 11/12/2017 7:48 PM 8 7:48 CDT PM CDT Venu Fernandez M.D., M.S. LAB BLOOD ADD-ON Performing Organization Address City/[facility]/ZIP Code Phon e Number [facility] LABORATORIES - [address] [place], [place] [address] [facility] ABORh, RBC (11/12/2017 11:55 AM CDT) P athologist Signature HXABO/RH BLOOD A NEG [facility] TYPE LABORATORIES - [facility] Specimen (Source) Anatomical Collection Method Collection Time Re ceived Time Location / / Volume Laterality 11/12/2017 11:55 AM CDT Historical Provider LAB BLOOD BANK TEST ORDERABL ES Performing Organization Address [facility] Code Phon e Number [facility] LABORATORIES - [address] [place], [place] [address] [facility] Antibody Screen, RBC (11/12/2017 11:55 AM CDT) Patholo gist Method Time Signature Antibody Negative [facility] Screen [facility]ORATORIES [facility] Specimen (Source) Anatomical Collection Method Collection Time Re ceived Time Location / / Volume Laterality 11/12/2017 11:55 AM CDT Historical Provider LAB BLOOD BANK TEST ORDERABL ES Performing Organization Address [facility] Code Phon e Number [facility] LABORATORIES - [address] [place], [place] [address] [facility] Calcium, Ionized (11/12/2017 11:42 AM CDT) P athologist Signature Calcium, 4.93 4.57 - [facility] Ionized, S 5.43 MG/DL LABORATORIES - [facility] Comment: ? ADDITIONAL INFORMATIO N ? This test has been modified from the man mackr's ? instructions. Its performance characteri stics were ? determined by [facility] in a manner co nsistent with ? CLIA requirements. This test has not bee n cleared or ? approved by the U.S. Food and Drug Admin istration. ? pH 7.42 7.35 - 7.48 [facility] LABORA TORIES - [facility] Specimen Anatomical Collection Method Collection Time Receive d Time (Source) Location / / Volume Laterality 11/12/2017 11:42 11/12/2017 AM CDT 11:42 AM CDT Venu Fernandez M.D., M.S. LAB BLOOD NON ADD-ON Performing Organization Address City/[facility] Code Phon e Number [facility] LABORATORIES - [address] [place] [phone] [facility] (ABNORMAL) ALT (Alanine Aminotransferase) (11/12/2017 11:42 AM CDT) Component Value Ref Test Analysis Performed At Patholo gist Range Method Time Signature Alanine 212 (H) 7 - 45 [facility] Aminotransferase U/L LABORATORIES - (ALT), S [facility] Specimen Anatomical Collection Method Collection Time Receive d Time (Source) Location / / Volume Laterality 11/12/2017 11:42 11/12/2017 AM CDT 11:42 AM CDT Venu Fernandez M.D., M.S. LAB BLOOD ADD-ON Performing Organization Address City/State/[facility] Code Phon e Number [facility] LABORATORIES - [address] [place] [address] [facility] BMP (Basic Metabolic Panel) (11/12/2017 11:42 AM CDT) Analysis Performed At Patho logist Time Signature Sodium, P 141 135 - 145 [facility] MMOL/L LABORATORIES - [facility] Potassium, P 4.0 3.6 - 5.2 [facility] MMOL/L LABORATORIES - [facility] eGFR >60 >60 [facility] Non-Black/Afric ML/MIN/BSA LABORATORIES - [facility] eGFR >60 >60 [facility] Black/ ML/MIN/BSA LABORATORIES - [facility] BUN (Blood Urea 11 6 - 21 [facility] Nitrogen), S MG/DL LABORATORIES - [facility] HX Bicarbonate, 23 22 - 29 [facility] P/S MMOL/L LABORATORIES - [facility] Glucose, S 102 70 - 140 [facility] MG/DL LABORATORIES - [facility] Anion Gap 12 7 - 15 [facility] Chloride, S 106 98 - 107 [facility] MMOL/L LABORATORIES - [facility] Creatinine 0.7 0.6 - 1.1 [facility] MG/DL LABORATORIES - [facility] eGFR >60 >60 [facility] Non-Black/Afric ML/MIN/BSA LABORATORIES - an Citizen Of [place] [facility] eGFR-Black/Afri >60 >60 [facility] can Citizen Of [place] ML/MIN/BSA LABORATORIES - [facility] Creatinine 0.7 0.6 - 1.1 [facility] MG/DL LABORATORIES - [facility] Specimen Anatomical Collection Method Collection Time Receive d Time (Source) Location / / Volume Laterality 11/12/2017 11:42 11/12/2017 AM CDT 11:42 AM CDT Venu Fernandez M.D., M.S. LAB BLOOD ADD-ON Performing Organization Address City/[facility] Code Phon e Number [facility] LABORATORIES - [address] [place] [phone] [facility] (ABNORMAL) CBC without Differential (11/12/2017 11:42 AM CDT) Patholo gist Method Time Signature Hemoglobin 9.8 (L) 12.0 - [facility] 15.5 G/DL LABORATORIES - [facility] Hematocrit 29.8 (L) 34.9 - [facility] 44.5 % LABORATORIES - [facility] Erythrocytes 3.42 (L) 3.90 - [facility] 5.03 LABORATORIES - X10(12)/L [facility] MCV 87.1 81.6 - [facility] 98.3 FL [facility] - [facility] RBC Distrib 15.0 11.9 - [facility] Width 15.5 % [facility] - [facility] Platelet Count 229 150 - 450 [facility] X10(9)/L [facility] - [facility] Leukocytes 13.2 (H) 3.5 - [facility] 10.5 LABORATORIES - X10(9)/L [facility] Specimen Anatomical Collection Method Collection Time Receive d Time (Source) Location / / Volume Laterality 11/12/2017 11:42 11/12/2017 AM CDT 11:42 AM CDT Venu Fernandez M.D., M.S. LAB BLOOD ADD-ON Performing Organization Address City/State/ZIP Code Phon e Number [facility] LABORATORIES - [address] [place] [phone] [facility] Phosphorus Inorganic (11/12/2017 11:42 AM CDT) Analysis Performed At Patho logist Time Signature Phosphorus 2.6 2.5 - 4.5 [facility] (Inorganic), S MG/DL [facility] Specimen Anatomical Collection Method Collection Time Receive d Time (Source) Location / / Volume Laterality 11/12/2017 11:42 11/12/2017 AM CDT 11:42 AM CDT Venu Fernandez M.D., M.S. LAB BLOOD ADD-ON Performing Organization Address City/[facility]/ZIP [facility] Phon e Number [facility] LABORATORIES - [address] [place] [address] [facility] Bilirubin, Total (11/12/2017 11:42 AM CDT) P athologist Signature Bilirubin, 0.8 <=1.2 [facility] Total, S MG/DL [facility] Specimen Anatomical Collection Method Collection Time Receive d Time (Source) Location / / Volume Laterality 11/12/2017 11:42 11/12/2017 AM CDT 11:42 AM CDT Venu Fernandez M.D., M.S. LAB BLOOD ADD-ON Performing Organization Address City/[facility]/ZIP Code Phon e Number [facility] LABORATORIES - [address] [place] [address] [facility] Magnesium (11/12/2017 11:42 AM CDT) P athologist Signature Magnesium, S 1.9 1.7 - 2.3 [facility] MG/DL [facility] Specimen Anatomical Collection Method Collection Time Receive d Time (Source) Location / / Volume Laterality 11/12/2017 11:42 11/12/2017 AM CDT 11:42 AM CDT Venu Fernandez M.D., M.S. LAB BLOOD ADD-ON Performing Organization Address City/State/ZIP Code Phon e Number [facility] LABORATORIES - [address] [place] [address] [facility] Bilirubin, Direct (11/12/2017 11:42 AM CDT) P athologist Signature Bilirubin, 0.2 0.0 - 0.3 [facility] Direct, S MG/DL [facility] Specimen Anatomical Collection Method Collection Time Receive d Time (Source) Location / / Volume Laterality 11/12/2017 11:42 11/12/2017 AM CDT 11:42 AM CDT Venu Fernandez M.D., M.S. LAB BLOOD ADD-ON Performing Organization Address City/[facility]/ZIP Code Phon e Number [facility] - [address] AST (Aspartate Aminotransferase) (11/12/2017 11:42 AM CDT) P athologist Signature AST, Total, S 22 8 - 43 U/L [facility] Specimen Anatomical Collection Method Collection Time Receive d Time (Source) Location / / Volume Laterality 11/12/2017 11:42 11/12/2017 AM CDT 11:42 AM CDT Venu Fernandez M.D., M.S. LAB BLOOD ADD-ON Performing Organization Address City/[facility] Code Phon e Number [facility] - [address] [place] [phone] [facility] Alkaline Phosphatase (11/12/2017 11:42 AM CDT) athologist Signature Alkaline 92 37 - 98 [facility] Phosphatase, S U/L [facility] Specimen Anatomical Collection Method Collection Time Receive d Time (Source) Location / / Volume Laterality 11/12/2017 11:42 11/12/2017 AM CDT 11:42 AM CDT Venu Fernandez M.D., M.S. LAB BLOOD ADD-ON Performing Organization Address City/[facility] Phon e Number [facility] - [address] [place] [address] documented in this encounter Visit Diagnoses Not on filedocumented in this encounter Additional Health Concerns Assessment Noted Time PHQ-9 Depression Total Score: 7 04/07/2017 9:39 AM CDT documented as of this encounter Care Teams Emt Intermediate Relationship Specialty Start Date End Date Blaire Bundy P.A.-C. PCP - General 02/04/17 04/26/19 documented as of this encounter
--- OUTSIDE RECORDS SUMMARY | 2022-07-08 08:54 | XMS_ITS | Encounter Summary ---
:1985 Author Organization [facility] Address [address] [place] [address] Care Team Providers Name Role Phone Blaire Bundy P.A.-C. Primary Care Provider [phone] Encounter Details Date Type Department Care [...] How often do you attend cheondoism or worship More than 4 time s [...] documented as of this encounter Care Teams Acds Block 1 Operator Relationship Specialty Start Date End Date Blaire Bundy PGladys. PCP - General 02/04/17 04/26/19 documented as of this encounter
--- OUTSIDE RECORDS SUMMARY | 2022-07-08 08:54 | XMS_ITS | Encounter Summary ---
:[address] [facility] Address [address] [place] [address] Care Team Providers Name Role Phone Blaire Bundy P.A.-C. Primary Care Provider [phone] Reason for Visit Reason Comments Communication [facility] Hospital follow up Encounter Details Date Type Department Care Team Description 11/15/2017 Clinical Department of Suellen Beasley on ([facility] Communication Family Medicine, R, R.N. Hospital follow up) [place] [address] Clinic, in [address] [phone] [facility] [phone] [place], [place] (Work) [phone] Social History Tobacco Use [...] How often do you attend sabianism or jehovah's witness More than 4 time [...] to pay for the very basics like [employer] hat hard 07/09/2020 food, housing, medical care, [...] documented as of this encounter Care Teams Betting Clerks Relationship Specialty Start Date End Date Blaire Bundy P.A.-C. PCP - General 02/04/17 04/26/19 documented as of this encounter
--- OUTSIDE RECORDS SUMMARY | 2022-07-08 08:54 | XMS_ITS | Encounter Summary ---
:1985 Author Organization [facility] Address [address] [place] [address] Care Team Providers Name Role Phone Blaire Bundy P.A.-C. 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 PAR REVIEW Rubio Baker [facility] [place] Procedures DUKES Sera [address] [place] [address] Referral ID Status Reason Start Date Expiration Date Visits V isits Requested Authorized [id number] Closed Specialty 11/08/2017 05/07/2018 1 1 Services Required Reason for Visit Auth/Cert Specialty Diagnoses / Procedures Referred By Contact Refer red To Contact Diagnoses 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 Without Cholangitis [place] RIVERA [address] [place] [phone] [place] Rivera Obstruction [phone] Social History Tobacco Use Types Packs/Day [...] Everywhere. About Your ERCP, (Endoscopic Retrograde Cholangiopancreatography) (Georgian) documented in this encounter Medications at Time [...] LAPAROSCOPIC APPENDECTOMY; Surgeon: Edd Moeller D.O.; Location: [facility] OR ??? OTHER CONVERTED SHX (SEE COMMENT) [...] Used ??? Alcohol use No Lives [place] working at the [employer] there. Has two sons, the youngest [...] - 11/08/2017 3:08 PM CDTAssociated Order(s): ERCP [facility] [place] [facility] Patient Name: Carol Cooley Procedure Date: [...] anesthesia, benzocaine spray and indomethacin 100 mg CA Complications: No immediate complications. Estimated blood loss: [...] 1 : Perianal for CRE Swab Perianal [facility] PCR Rubio Baker M.D. 11/08/2017 1539 Drains None Estimated Blood Loss No blood loss documented. Implants * No implants in log * Rubio Baker M.D. documented in this encounter Plan of Treatment Scheduled Procedures Name Priority Associated Diagnoses Date/Time COLONOSCOPY Diarrhea Scheduled Referrals Name Type Priority Associated Diagnoses Order S [facility] General Surgery - Outpatient Referral Routine [...] Duct Without Cholangitis Or Cholecystitis With Obstruction [facility] PCR Routine 11/08/2017 Calculus Of [...] Surveillance PCR Perianal (11/08/2017 3:39 PM CDT) [facility] gist Method Time Signature Specimen RECTAL SWAB 11/09/2017 [facility] source 1:40 PM CDT [facility] - [facility] KPC PCR Negative Not 11/09/2017 [facility] Applicable 1:40 PM CDT [facility] NDM PCR Negative Not 11/09/2017 [facility] Applicable 1:40 PM CDT [facility] Comment: ----ADDITIONAL INFORMATION---- This test was developed and its performa nce characteristics determined by [facility] in a manner consistent with CLIA requirements. This test has not been cleared or approved by the [place] d and Drug Administration. Specimen (Source) Anatomical Collection Method Collection Time Re ceived Time Location / / Volume Laterality Swab (Perianal) 11/08/2017 3:39 PM CDT Rubio Baker M.D. LAB MICROBIOLOGY - GENERAL O RDERABLES Performing Organization Address City/State/ZIP Code Phon e Number [facility]ATORIES - [address] [place], [place] [address] [facility] ERCP (11/08/2017 3:08 PM CDT) Specimen (Source) Anatomical Location Collection Method / Collectio n Time Received Time / Laterality Volume Narrative This result has an attachment that is no t available. Procedure Note Rubio Baker M.D. - 11/08/2017 3:0 8 PM CDT [facility] [place] [facility] Patient Name: Carol Cooley Procedure Date: [...] benzocaine spray an d indomethacin 100 mg CA Complications: No immediate complication s. Estimated blood [...] documented as of this encounter Care Teams Python Web Developer Relationship Specialty Start Date End Date Blaire Bundy P.A.-C. PCP - General 02/04/17 04/26/19 documented as of this encounter
--- OUTSIDE RECORDS SUMMARY | 2022-07-08 08:54 | XMS_ITS | Encounter Summary ---
:1985 Author Organization [facility] Address [address] [place] [address] Care Team Providers Name Role Phone Blaire [...] often do you attend oriental orthodox or buddhist More than 4 time s [...] documented as of this encounter Care Teams Plastic Straightening Roll Operator Relationship Specialty Start Date End Date Blaire Bundy, PBrittaneyABrittaney-C. PCP - General 02/04/17 04/26/19 documented as of this encounter
--- OUTSIDE RECORDS SUMMARY | 2022-07-08 08:54 | XMS_ITS | Encounter Summary ---
:1985 Author Organization [facility] Address [address] [place] [address] Care Team Providers Name Role Phone Blaire Bundy P.A.-C. Primary Care Provider Reason for Referral Outpatient (Routine) - Closed Specialty Diagnoses / Procedures Referred By Contact Refer red To Contact General Surgery Diagnoses Gallstone With Common Bile Duct Stone Blaire Bundy [facility] Alicia BuckleyABrittaney-CBrittaney [address] [place], [place] [address] Referral ID Status Reason Start Date Expiration Date Visits V isits Requested Authorized [id number] Closed Specialty 11/19/2017 05/18/2018 1 1 Services Required Reason for Visit Reason Comments Post Hospital Follow-up Patient discharged from [facility] on 11/13/17. 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 Patient is complaining of feeling tired and short of breath Encounter Details Date Type Department Care Team Description 11/19/2017 Office Visit Department of Family Blaire Bundy (Primary Dx); Medicine, Jose Knox Hypovolemic Shock (HCC); Clinic, in [address] Gallstone With Common Bile Duct Stone; [place], [place] Counseling Control [address] [place] [address] [place], [place] [phone] (Work) [phone] Social History Tobacco Use Types Packs/Day Years [...] How often do you attend baptist or yazidism More than 4 time s [...] of Post Hospital Follow-up (Patient discharged from [facility] on 11/13/17. Was in for Upper GI [...] duodenal ulcer. She was then transferred from [facility] to [facility] for further treatment. In [place] the patient had another EGD which showed [...] Name Type Priority Associated Diagnoses Order S [facility] General Surgery - Outpatient Referral Routine [...] CBC with Differential (11/19/2017 11:35 AM CDT) [facility] gist Method Time Signature Hemoglobin 8.6 (L) 11.6 - 11/19/2017 [facility] 15.0 g/dL 11:58 AM [facility] Hematocrit 27.7 (L) 35.5 - 11/19/2017 [facility] 44.9 % 11:58 AM [facility] Erythrocytes 3.10 (L) 3.92 - 11/19/2017 [facility] 5.13 11:58 AM T [facility] x10(12)/L [facility] MCV 89.4 78.2 - 11/19/2017 [facility] 97.9 fL 11:58 AM T [facility] RBC Distrib Width 14.9 12.2 - 11/19/2017 [facility] 16.1 % 11:58 AM T [facility] Platelet Count 355 157 - 371 11/19/2017 [facility] x10(9)/L 11:58 AM T [facility] Leukocytes 5.6 3.4 - 9.6 11/19/2017 [facility] x10(9)/L 11:58 AM [facility] Neutrophils 2.80 1.56 - 11/19/2017 [facility] 6.45 11:58 AM CDT [facility] x10(9[facility] [place] [facility] Lymphocytes 2.17 0.95 - 11/19/2017 [facility] 3.07 11:58 AM CDT [facility] x10(9[facility] [place] [facility] Monocytes 0.44 0.26 - 11/19/2017 [facility] 0.81 11:58 AM CDT [facility] x10(9)/[facility] [place] [facility] Eosinophils 0.22 0.03 - 11/19/2017 [facility] 0.48 11:58 AM CDT [facility] x10(9)/[facility] [place] [facility] Basophils 0.01 0.01 - 11/19/2017 [facility] 0.08 11:58 AM CDT [facility] x10(9)/[facility] [place] [facility] Specimen Anatomical Collection Method Collection Time Receive d Time (Source) Location / / Volume Laterality Blood (Blood, 11/19/2017 11:35 11/19/2017 Venous) AM CDT 11:50 AM CDT Blaire Bundy P.A.-C. LAB BLOOD ADD-ON Performing Organization Address City/State/ZIP Code Phon e Number [facility] [id number] [place] [id number] [place] [address] LAB documented in this encounter Visit Diagnoses Diagnosis Melena - Primary Hypovolemic Shock (HCC) Gallstone With Common Bile Duct Stone Counseling Control documented in this encounter Additional Health Concerns Assessment Noted Time PHQ-9 Depression Total Score: 7 04/07/2017 9:39 AM CDT documented as of this encounter Care Teams Beef Grinder Relationship Specialty Start Date End Date Blaire Bundy P.A.-C. PCP - General 02/04/17 04/26/19 documented as of this encounter
--- OUTSIDE RECORDS SUMMARY | 2022-07-08 08:54 | XMS_ITS | Encounter Summary ---
:1985 Author Organization [facility] Address [address] [place] [address] Care Team Providers Name Role Phone Blaire Bundy P.A.-C. 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 [address] [phone] Social History Tobacco Use Types Packs/Day Years [...] How often do you attend denominational or adventist More than 4 time s [...] Primary Care Providers: Blaire Thornton P.A.-C. (General) [address] [place] [phone] Primary Care Provider Primary Care Provider Admission Date: 11/11/2017 Discharge Date: 11/12/2017 PRINCIPAL DIAGNOSIS Melena SECONDARY DIAGNOSES Active Problems: Hypovolemic Shock (HCC) Morbid obesity Resolved Problems: * No resolved hospital problems. * Operative Procedures: Scheduled (Blank), Completed (Comp) or Canceled (Can) Case IDs Date Procedure Surgeon Location Status [id number] 11/11/17 ESOPHAGOGASTRODUODENOSCOPY Rubio Baker M.D. [facility] GI LAB Blank Past Medical History: Diagnosis Date ??? Sleep Apnea Past Surgical History: Procedure Laterality Date ??? ENDOSCOPIC RETROGRADE CHOLANGIOPANCREATOGRAPHY (ERCP) N/A 11/08/2017 Procedure: ENDOSCOPIC RETROGRADE CHOLANGIOPANCREATOGRAPHY; Surgeon: Rubio Baker M.D.; Location: [facility] OR ??? LAPAROSCOPIC APPENDECTOMY N/A 09/08/2017 Procedure: LAPAROSCOPIC APPENDECTOMY; Surgeon: Edd Moeller D.O.; Location: [facility] OR ??? OTHER CONVERTED SHX [...] 1/3 unit of blood. Coordinated care with [facility] in [place]. Patient will be transferred via ambulance to [...] own decisions. FOLLOW UP APPOINTMENTS: Transfer to [facility] TEST RESULTS PENDING AT DISCHARGE: None. [...] bleeding and would like to transfer to [place]. Still gets winded with any movement. OBJECTIVE [...] ERCPist to treat this. Will transfer to [place] this morning. NPO. Discussed case with Dr. [...] RETROGRADE CHOLANGIOPANCREATOGRAPHY; Surgeon: Rubio Baker M.D.; Location: [facility] OR ??? LAPAROSCOPIC APPENDECTOMY N/A 09/08/2017 Procedure: LAPAROSCOPIC APPENDECTOMY; Surgeon: Edd Moeller D.O.; Location: [facility] OR ??? OTHER CONVERTED SHX [...] 3:51 PM CDTAssociated Order(s): UPPER GI ENDOSCOPY [facility] [place] [facility] Patient Name: Carol Cooley Procedure Date: [...] specimens collected. Recommendation: - After discussing with [place], as she has achieved some hemostasis, will observe. - Continue Protonix 40 mg IV BID. - Minimal clear liquids are OK. - If she continues to significantly bleed, and certainly if she becomes unstable, then will plan on transferring to [place] for further therapy. Findings: The esophagus was [...] RETROGRADE CHOLANGIOPANCREATOGRAPHY; Surgeon: Rubio Baker M.D.; Location: [facility] OR ??? LAPAROSCOPIC APPENDECTOMY N/A 09/08/2017 Procedure: LAPAROSCOPIC APPENDECTOMY; Surgeon: Edd Moeller D.O.; Location: [facility] OR ??? OTHER CONVERTED SHX [...] - 11/12/2017 9:26 AM CDT Transfer to [place] report given to Don Gabrielle Nguyen R.N. - 11/12/2017 9:22 AM CDT Goals: Clinical Goals for the Shift: reduce heart rate; improve hemoglobin level Identify possible barriers to meeting goals/advancing plan of care: none Stability of the patient: Moderately Stable - Low risk of patient condition declining or worsening End of Shift Summary: pt to transfer to alvin Marcus Mata R.N. - 11/12/2017 5:12 AM CDT Goals: Clinical Goals for the Shift: reduce heart rate; improve hemoglobin level Identify possible barriers to meeting goals/advancing plan of care: melena; hypovolemic shock Stability of the patient: Moderately Unstable - Medium risk of patient condition declining or worsening End of Shift Summary: HR has improved over the duration of this caustic cresylate shift superintendent; initially HR was 130-140, now HR is [...] Hemoglobin 7.6 (L) 11.6 - 15.0 11/12/2017 [facility] g/dL 5:47 AM CDT [facility] [place] [facility] Specimen Anatomical Collection Method Collection Time Receive d Time (Source) Location / / Volume Laterality Blood (Blood, 11/12/2017 5:40 AM 11/13/19 18 5:45 Venous) CDT AM CDT Kendal Santacruz APRNN.P. LAB BLOOD ADD-ON Performing Organization Address City/State/ZIP Code Phon e Number [facility] [address] [place] [address] [facility] (ABNORMAL) Hemoglobin (11/12/2017 12:21 AM CDT) P athologist Signature Hemoglobin 8.9 (L) 11.6 - 15.0 11/12/2017 [facility] g/dL 12:24 AM CDT [facility] [place] [facility] Specimen Anatomical Collection Method Collection Time Receive d Time (Source) Location / / Volume Laterality Blood (Blood, 11/12/2017 12:21 11/12/2017 Venous) AM CDT 12:21 AM CDT Kendal Santacruz APRNN.P. LAB BLOOD ADD-ON Performing Organization Address City/State/ZIP Code Phon e Number [facility] [address] [place] [address] [facility] [facility] Transfuse Red Blood Cells (11/11/2017 10:52 PM CDT) Kaye Grimes APRN, C.N.P., M.S.N. BLOOD TRANSFUSION O RDERABLES Transfuse Red Blood Cells : , 1 Units (11/11/2017 10:52 PM CDT) Kendal Boudreaux APRNNLebron., M.S.N. BLOOD TRANSFUSION O RDERABLES (ABNORMAL) Hemoglobin (11/11/2017 6:15 PM CDT) P athologist Signature Hemoglobin 8.7 (L) 11.6 - 15.0 11/11/2017 [facility] g/dL 6:21 PM CDT [facility] [place] [facility] Specimen Anatomical Collection Method Collection Time Receive d Time (Source) Location / / Volume Laterality Blood (Blood, 11/11/2017 6:15 PM 11/12/19 18 6:19 Venous) CDT PM CDT Kendal Santacruz APRNNLebron. LAB BLOOD ADD-ON Performing Organization Address City/State/ZIP Code Phon e Number [facility] [address] [facility] [place] [address] [facility] Transfuse Red Blood Cells (11/11/2017 [...] 11/11/2017 3:5 1 PM CDT [facility] [place] [facility] Patient Name: Carol Cooley Procedure Date: [...] to the pancreatic duct orifice. Discussed with [place], although they were not able to see the pictures. - No specimens collected. Recommendation: - After discussing with [place], as s he has achieved some hemostasis, will observe. - Continue Protonix 40 mg IV BID. - Minimal clear liquids are OK. - If she continues to significantly ble ed, and certainly if she becomes unstable, then will plan on transferrin g to [place] for further therapy. Findings: The esophagus was [...] Signature Prothrombin 9.4 8.8 - 11.9 11/11/2017 [facility] Time, P sec 12:58 PM CDT [facility] INR 0.9 0.9 - 1.2 11/11/2017 [facility] 12:58 PM CDT [facility] [employer] [facility] Comment: Standard intensity warfarin therapeutic range: 2.0 to 3.0 High intensity warfarin therapeutic rang e: 2.5 to 3.5 Specimen Anatomical Collection Method Collection Time Receive d Time (Source) Location / / Volume Laterality Blood (Blood, 11/11/2017 12:39 11/11/2017 Venous) PM CDT 12:42 PM CDT Nuno Love M.D. LAB BLOOD ADD-ON Performing Organization Address City/State/ZIP Code Phon e Number [facility] [address], [place] [address] [place] [facility] Lactate (11/11/2017 12:39 PM CDT) P athologist Signature Lactate, P 2.1 0.6 - 2.3 11/11/2017 [facility] mmol/L 12:59 PM CDT [facility] Specimen Anatomical Collection Method Collection Time Receive d Time (Source) Location / / Volume Laterality Blood (Blood, 11/11/2017 12:39 11/11/2017 Venous) PM CDT 12:42 PM CDT Nuno Love M.D. LAB BLOOD NON ADD-ON Performing Organization Address City/State/ZIP Code Phon e Number [facility] [address] [place] [address] [place] [facility] documented in this encounter Visit Diagnoses [...] (Gi pablo - Provider: Cammie Schuster RBrittaneyN.)1608 ([facility] Hold - Provider: Transfer Provider, Automatic - Reason: Patient not available)1735 ([facility] Unhold - Provider: Transfer Provider, Automatic)2032 (Given [...] sodium chloride injection 3 mL 1608 ([facility] Hold - Provider: Transfer Provider, Automatic - Reason: Patient not available)1735 ([facility] Unhold - Provider: Transfer Provider, Automatic) 3 mL, intravenous, As needed, line care, Starting on Bryanna 11/11/17 at 1230, Prior to and following infusion and between multiple consecutive infusions: sodium chloride 0.9 % injection documented in this encounter Additional Health Concerns Assessment Noted Time PHQ-9 Depression Total Score: 7 04/07/2017 9:39 AM CDT documented as of this encounter Care Teams Pool Coordinator Relationship Specialty Start Date End Date Blaire Bundy P.A.-C. PCP - General 02/04/17 04/26/19 documented as of this encounter
--- OUTSIDE RECORDS SUMMARY | 2022-07-08 08:54 | XMS_ITS | Encounter Summary ---
:1985 Author Organization [facility] Address [address] [place] [address] Care Team Providers Name Role Phone Blaire Bundy P.A.-C. 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 [address] [place] [address] Radha (Primary Dx); 11/12/2017 Encounter Hospital, [place] Taryn Helm M.D. [address] [place] [address] Hypovolemic Shock (HCC); [facility], [facility] Third Floor [address] [place] [address] Social History Tobacco Use Types [...] How often do you attend baptist or jewish More than 4 time s [...] Primary Care Providers: Blaire Thornton P.A.-C. (General) [address] [place] [phone] Primary Care Provider Primary Care Provider Admission Date: 11/11/2017 Discharge Date: 11/12/2017 PRINCIPAL DIAGNOSIS Melena SECONDARY DIAGNOSES Active Problems: Hypovolemic Shock (HCC) Morbid obesity Resolved Problems: * No resolved hospital problems. * Operative Procedures: Scheduled (Blank), Completed (Comp) or Canceled (Can) Case IDs Date Procedure Surgeon Location Status [id number] 11/11/17 ESOPHAGOGASTRODUODENOSCOPY Rubio Baker M.D. [facility] LAB Blank Past Medical History: Diagnosis Date ??? Sleep Apnea Past Surgical History: Procedure Laterality Date ??? ENDOSCOPIC RETROGRADE CHOLANGIOPANCREATOGRAPHY (ERCP) N/A 11/08/2017 Procedure: ENDOSCOPIC RETROGRADE CHOLANGIOPANCREATOGRAPHY; Surgeon: Rubio Baker M.D.; Location: [facility] OR ??? LAPAROSCOPIC APPENDECTOMY N/A 09/08/2017 Procedure: LAPAROSCOPIC APPENDECTOMY; Surgeon: Edd Moeller D.O.; Location: [facility] OR ??? OTHER CONVERTED SHX (SEE COMMENT) [...] 1/3 unit of blood. Coordinated care with [facility] in [place]. Patient will be transferred via ambulance to [...] own decisions. FOLLOW UP APPOINTMENTS: Transfer to [facility] TEST RESULTS PENDING AT DISCHARGE: None. ADMINISTRATIVE [...] bleeding and would like to transfer to [place]. Still gets winded with any movement. OBJECTIVE [...] ERCPist to treat this. Will transfer to [place] this morning. NPO. Discussed case with Dr. [...] RETROGRADE CHOLANGIOPANCREATOGRAPHY; Surgeon: Rubio Baker M.D.; Location: [facility] OR ??? LAPAROSCOPIC APPENDECTOMY N/A 09/08/2017 Procedure: LAPAROSCOPIC APPENDECTOMY; Surgeon: Edd Moeller D.O.; Location: [facility] OR ??? OTHER CONVERTED SHX (SEE COMMENT) [...] 3:51 PM CDTAssociated Order(s): UPPER GI ENDOSCOPY [facility] [place] [facility] Patient Name: Carol Cooley Procedure Date: [...] unstable, then will plan on transferring to [place] for further therapy. Findings: The esophagus was [...] RETROGRADE CHOLANGIOPANCREATOGRAPHY; Surgeon: Rubio Baker M.D.; Location: [facility] OR ??? LAPAROSCOPIC APPENDECTOMY N/A 09/08/2017 Procedure: LAPAROSCOPIC APPENDECTOMY; Surgeon: Edd Moeller D.O.; Location: [facility] OR ??? OTHER CONVERTED SHX (SEE COMMENT) [...] - 11/12/2017 9:26 AM CDT Transfer to [place] report given to Don Gabrielle Nguyen R.N. - 11/12/2017 9:22 AM CDT Goals: Clinical Goals for the Shift: reduce heart rate; improve hemoglobin level Identify possible barriers to meeting goals/advancing plan of care: none Stability of the patient: Moderately Stable - Low risk of patient condition declining or worsening End of Shift Summary: [facility] Marcus Mata R.N. - 11/12/2017 5:12 AM [...] with her family history of CAD and ID as well as her recent surgery and [...] Hemoglobin 7.6 (L) 11.6 - 15.0 11/12/2017 [facility] g/dL 5:47 AM CDT [facility] [employer] [facility] Specimen Anatomical Collection Method Collection Time Receive d Time (Source) Location / / Volume Laterality Blood (Blood, 11/12/2017 5:40 AM 11/13/19 18 5:45 Venous) CDT AM CDT Kendal Santacruz APRNN.Jason. LAB BLOOD ADD-ON Performing Organization Address City/[facility]/ZIP Code Phon e Number [address] [place] [address] [facility] (ABNORMAL) Hemoglobin (11/12/2017 12:21 AM CDT) P athologist Signature Hemoglobin 8.9 (L) 11.6 - 15.0 11/12/2017 [facility] g/dL 12:24 AM CDT [facility] [employer] [facility] Specimen Anatomical Collection Method Collection Time Receive d Time (Source) Location / / Volume Laterality Blood (Blood, 11/12/2017 12:21 11/12/2017 Venous) AM CDT 12:21 AM CDT Kendal Santacruz APRNN.P. LAB BLOOD ADD-ON Performing Organization Address City/State/ZIP Code Phon e Number [address] [place] [address] [facility] Transfuse Red Blood Cells (11/11/2017 10:52 PM CDT) Kaye Grimes APRN, C.N.P., M.S.N. BLOOD TRANSFUSION O RDERABLES Transfuse Red Blood Cells : , 1 Units (11/11/2017 10:52 PM CDT) Kaye Grimes APRN, C.N.P., M.S.N. BLOOD TRANSFUSION O RDERABLES (ABNORMAL) Hemoglobin (11/11/2017 6:15 PM CDT) athologist Signature Hemoglobin 8.7 (L) 11.6 - 15.0 11/11/2017 [facility] g/dL 6:21 PM CDT [facility] LAB Specimen Anatomical Collection Method Collection Time Receive d Time (Source) Location / / Volume Laterality Blood (Blood, 11/11/2017 6:15 PM 11/12/19 18 6:19 Venous) CDT PM CDT Kendal Santacruz APRNN.P. LAB BLOOD ADD-ON Performing Organization Address City/State/ZIP Code Phon e Number [facility] [place] [place] [address] [facility] Transfuse Red Blood Cells (11/11/2017 [...] 11/11/2017 3:5 1 PM CDT [facility] [place] [facility] Patient Name: Carol Cooley Procedure Date: [...] then will plan on transferrin g to [place] for further therapy. Findings: The esophagus was [...] Signature Prothrombin 9.4 8.8 - 11.9 11/11/2017 [facility] Time, P sec 12:58 PM CDT [facility] INR 0.9 0.9 - 1.2 11/11/2017 [facility] 12:58 PM CDT [facility] Comment: Standard [...] Number [facility] [place] [address] [facility] Lactate (11/11/2017 12:39 PM CDT) P athologist Signature Lactate, P 2.1 0.6 - 2.3 11/11/2017 [facility] mmol/L 12:59 PM CDT [facility] LAB Specimen Anatomical Collection Method Collection Time Receive d Time (Source) Location / / Volume Laterality Blood (Blood, 11/11/2017 12:39 11/11/2017 Venous) PM CDT 12:42 PM CDT Nuno Love M.D. LAB BLOOD NON ADD-ON Performing Organization Address City/State/ZIP Code Phon e Number [facility] [place] [address] [facility] documented in this encounter Visit [...] mg/mL. pantoprazole injection 40 mg (for_PROTONIX) 1608 ([facility] Hold - Provider: Transfer Provider, Automatic - [...] Provider, Automatic - Reason: Patient not available)1735 ([facility] Unhold - Provider: Transfer Provider, Automatic)2033 (Given [...] sampling sodium chloride injection 3 mL 1608 ([facility] Hold - Provider: Transfer Provider, Automatic - Reason: Patient not available)1735 ([facility] Unhold - Provider: Transfer Provider, Automatic) 3 mL, intravenous, As needed, line care, Starting on Bryanna 11/11/17 at 1230, Prior to and following infusion and between multiple consecutive infusions: sodium chloride 0.9 % injection documented in this encounter Additional Health Concerns Assessment Noted Time PHQ-9 Depression Total Score: 7 04/07/2017 9:39 AM CDT documented as of this encounter Care Teams Welding Robot Operator Relationship Specialty Start Date End Date Blaire Bundy P.A.-C. PCP - General 02/04/17 04/26/19 documented as of this encounter
--- OUTSIDE RECORDS SUMMARY | 2022-07-08 08:54 | XMS_ITS | Encounter Summary ---
:1985 Author Organization [facility] Address [address] [place] [address] Care Team Providers Name Role Phone Blaire Bundy P.A.-C. 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 [address] [place] [phone] [address] [address] Anesthesia Record Procedure Summary Procedure Name Responsible Anesthesia Start Anesthesia Stop Anesthesiologist Time Time ESOPHAGOGASTRODUODENOSCOPY Alberto Hampton APRN, 11/11/17 1634 11/11/17 1655 SIENE MAKER Events Date Time Event Comment 11/11/2017 1634 An Start Machine/Equipmen t Checked Infection Precautions Foll owed Procedure/Site Verified NPO Sta tus Verified Supine Standard ASA Mon itors Applied 1637 Turnover to Proceduralist 1653 Turnover to ANE Staff 1653 Proc Fin 1655 an stop data 1655 An End I completed my h andoff to the receiving staff during [facility] ch we 1. Identified the [...] by Abdomen; and dermabond; Antionette Barnes R.N. [facility]-Background DRSG MILLING MACHINE OPERATOR WND ADH NEONAT , Ryanu jonathan Automated [...] often do you attend roman catholic or pentecostal More than 4 time s [...] Procedure Summary Date: 11/11/17 Room / Location: [facility] 01 [facility] 1412 / [facility] Anesthesia Start: 1634 Anesthesia Stop: [...] documented as of this encounter Care Teams Lace Winder Relationship Specialty Start Date End Date Blaire Bundy P.A.-C. PCP - General 02/04/17 04/26/19 documented as of this encounter
--- OUTSIDE RECORDS SUMMARY | 2022-07-08 08:54 | XMS_ITS | Encounter Summary ---
:1985 Author Organization [facility] Address [address] [place] [address] Care Team Providers Name Role Phone Blaire Bundy P.A.-C. 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 [address] [address] [facility] [phone] [place] [phone] Anesthesia Record Procedure Summary Procedure Name Responsible [...] h andoff to the receiving staff during [facility] ch we 1. Identified the patient [...] henok; Antionette Cooper CRT, R.N. [facility]-Back[facility]oun WND ADH NEONAT 2X3.75 d, Schedul ing (x3); 05/13/21 (Removed Automate d Batch Job by background completion utility); 141 (Removed by background completion utility) Peripheral IV Placement Date: 11/08/17; 11/08/17 153 by 11/08 1746 by Placement Time: 1531; Katarina rCuz, R.N. Katarina Cruz, R.N. Catheter Size: 20 [...] How often do you attend advent or scientologist More than 4 time s [...] Procedure Summary Date: 11/08/17 Room / Location: [address] 01 140 / [facility] OR Anesthesia Start: 1544 Anesthesia [...] patient / legal guardian, or through an flask cleaner; patient evaluated and approved for anesthesia / [...] grade 1 ETT location: oral VL device: storBridestory CMAC Storz CMAC blade size: D - [...] documented as of this encounter Care Teams Vet Assistant Relationship Specialty Start Date End Date Blaire Bundy P.A.-C. PCP - General 02/04/17 04/26/19 documented as of this encounter
--- OUTSIDE RECORDS SUMMARY | 2022-07-08 08:54 | XMS_ITS | Encounter Summary ---
:1985 Author Organization [facility] Address [address] [place] [address] Care Team Providers Name Role Phone Blaire Bundy P.A.-C. 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 CHOLANGIOPANCREATOGRAPHY [place], [place] [address] [address] [place], [place] [phone] [address] Social History Tobacco Use Types Packs/Day [...] How often do you attend gnosticist or religion More than 4 time s [...] Everywhere. About Your ERCP, (Endoscopic Retrograde Cholangiopancreatography) (Frisian) documented in this encounter Medications at Time [...] Used ??? Alcohol use No Lives in [place], working at the [employer] there. Has two sons, the youngest 4 [...] - 11/08/2017 3:08 PM CDTAssociated Order(s): ERCP [facility] [place] [facility] Patient Name: Carol Cooley Procedure Date: [...] anesthesia, benzocaine spray and indomethacin 100 mg [place] Complications: No immediate complications. Estimated blood loss: [...] 1 : Perianal for CRE Swab Perianal [facility] SURVEILLANCE PCR Rubio Baker M.D. 11/08/2017 1539 Drains None Estimated Blood Loss No blood loss documented. Implants * No implants in log * Rubio Baker M.D. documented in this encounter Plan of Treatment Scheduled Procedures Name Priority Associated Diagnoses Date/Time COLONOSCOPY Diarrhea Scheduled Referrals Name Type Priority Associated Diagnoses [facility] - Outpatient Referral Routine [...] Duct Without Cholangitis Or Cholecystitis With Obstruction [facility] SURVE[facility]ANCE PCR Routine 11/08/2017 Calculus [...] minutes. Rubio Baker M.D. IMG FLUOROSCOPY PROCEDURES [facility] Surveillance PCR Perianal (11/08/2017 3:39 PM CDT) Patholo gist Method Time Signature Specimen RECTAL SWAB 11/09/2017 [facility] ER source 1:40 PM CDT [facility] PCR Negative Not 11/09/2017 [facility] ER Applicable 1:40 PM CDT [facility] - [facility] ND PCR Negative Not 11/09/2017 [facility] ER Applicable 1:40 PM CDT [facility] - [facility] Comment: ----ADDITIONAL INFORMATION---- This test was developed and its performa nce characteristics determined by [facility] in a manner consistent with CLIA requirements. This test has not been cleared or approved by the [place] d and Drug Administration. Specimen (Source) Anatomical Collection Method Collection Time Re ceived Time Location / / Volume Laterality Swab (Perianal) 11/08/2017 3:39 PM CDT Rubio Baker M.D. LAB MICROBIOLOGY - GENERAL O RDERABLES Performing Organization Address City/State/ZIP Code Phon e Number [facility] ER [facility]IES - [address] [address] 05 [facility] ERCP (11/08/2017 3:08 PM CDT) Specimen (Source) Anatomical Location Collection Method / Collectio n Time Received Time / Laterality Volume Narrative This result has an attachment that is no t available. Procedure Note Rubio Baker M.D. - 11/08/2017 3:0 8 PM CDT [facility] [place] [facility] Patient Name: Carol Cooley Procedure Date: [...] benzocaine spray an d indomethacin 100 mg [place] Complications: No immediate complication s. Estimated blood [...] documented as of this encounter Care Teams Console Attendant Relationship Specialty Start Date End Date Blaire Bundy P.A.-C. PCP - General 02/04/17 04/26/19 documented as of this encounter
--- OUTSIDE RECORDS SUMMARY | 2022-07-08 08:54 | XMS_ITS | Encounter Summary ---
:[address] [facility] Address [address] [place] [address] Care Team Providers Name Role Phone Blaire Bundy P.A.-C. 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 [address] [place] [address] Pain Right Upper Quadrant (Primary Dx); [place] 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 ESOPHAGOGASTRODUODENOSCOPY N/A 11/11/2017 Procedure: ESOPHAGOGASTRODUODENOSCOPY; Surgeon: Rubio Baker M.D.; Location: [facility] GI LAB ??? LAPAROSCOPIC APPENDECTOMY N/A 09/08/2017 Procedure: LAPAROSCOPIC APPENDECTOMY; Surgeon: Edd Moeller D.O.; Location: [facility] OR ??? OTHER CONVERTED SHX (SEE [...] Type and screen (11/11/2017 12:30 PM CDT) [facility] gist Method Time Signature ABO Group A 11/11/2017 [facility] 1:05 PM CDT [facility] Rh Type NEG 11/11/2017 [facility] 1:05 PM CDT [facility] [address] Antibody Screen NEG 11/11/2017 [facility] 1:16 PM CDT [facility] [address] Type & Screen 11/14/2017 [facility] Expiration 23:[address] [facility] [address] [address] ELXM Eligible Y 11/11/2017 [facility] 1:16 PM CDT [facility] Specimen Anatomical Collection Method Collection Time Receive d Time (Source) Location / / Volume Laterality Blood (Blood, 11/11/2017 12:30 11/11/2017 Venous) PM CDT 12:41 PM CDT Seng Reyna M.D. LAB BLOOD BANK TEST ORDERABL ES Performing Organization Address City/State/ZIP Code Phon e Number [facility] [address] [place] [address] [facility] Lipase (11/11/2017 12:18 PM CDT) athologist Signature Lipase, S 42 13 - 60 U/L 11/11/2017 [facility] 1:01 PM CDT [facility] Specimen Anatomical Collection Method Collection Time Receive d Time (Source) Location / / Volume Laterality Blood (Blood, 11/11/2017 12:18 11/11/2017 Venous) PM CDT 12:40 PM CDT Seng Reyna M.D. LAB BLOOD ADD-ON Performing Organization Address City/State/ZIP Code Phon e Number [facility] [address] [place] [address] [facility] (ABNORMAL) CMP (Comprehensive Metabolic Panel) (11/11/2017 12:18 PM CDT) P athologist Signature Potassium, S 5.4 (H) 3.6 - 5.2 11/11/2017 [facility] mmol/L 1:01 PM T [facility] Sodium, S 138 135 - 145 11/11/2017 [facility] mmol/L 1:01 PM T [facility] Chloride, S 103 98 - 107 11/11/2017 [facility] mmol/L 1:01 PM T [facility] Bicarbonate, S 23 22 - 29 11/11/2017 [facility] mmol/L 1:01 PM T [facility] Anion Gap 12 7 - 15 11/11/2017 [facility] 1:01 PM T [facility] BUN (Blood Urea 35 (H) 6 - 21 11/11/2017 [facility] Nitrogen), S mg/dL 1:01 PM [facility] Creatinine 0.69 0.59 - 11/11/2017 [facility] 1.04 mg/dL 1:01 PM [facility] eGFR >90 >=60 11/11/2017 [facility] Non-Black/Afric mL/min/BSA 1:01 PM [facility] LAB Comment: ----ADDITIONAL INFORMATION---- Estimated GFR calculated using the 2009 CKD_EPI creatinine equation. eGFR Black/ >90 >=60 mL/min/BSA 11/11/2017 1:01 PM [facility] [address] LAB Comment: ----ADDITIONAL INFORMATION---- Estimated GFR calculated using the 2009 CKD_EPI creatinine equation. Calcium, Total, S 8.9 8.9 - 10.1 11/11/2017 1:01 PM [facility] mg/dL [facility] Glucose, S 153 (H) 70 - 140 mg/dL 11/11/2017 1:01 PM [facility]NOTE 3[facility] LAB Protein, Total, S 6.0 (L) 6.3 - 7.9 g/dL 11/11/2017 1:01 P M [facility]NOTE 3] LAB Albumin, S 3.4 (L) 3.5 - 5.0 g/dL 11/11/2017 1:01 PM [facility]NOTE 3] LAB Aspartate 23 8 - 43 U/L 11/11/2017 1:01 PM [facility] Aminotransferase (AST), S [facility] Alkaline Phosphatase, S 124 (H) 37 - 98 U/L 11/11/2017 1:0 1 PM [facility]NOTE 3[facility] LAB Alanine Aminotransferase 370 (H) 7 - 45 U/L 11/11/2017 1:0 1 PM [facility] (ALT), S [facility] LAB Bilirubin, Total, S 0.3 <=1.2 mg/dL 11/11/2017 1:01 PM [facility]NOTE 3[facility] LAB Specimen Anatomical Collection Method Collection Time Receive d Time (Source) Location / / Volume Laterality Blood (Blood, 11/11/2017 12:18 11/11/2017 Venous) PM CDT 12:40 PM CDT Seng Reyna M.D. LAB BLOOD ADD-ON Performing Organization Address City/State/ZIP Code Phon e Number [facility] [address] [place] [address] [facility] (ABNORMAL) CBC with Differential (11/11/2017 12:18 PM CDT) [facility] Method Time Signature Hemoglobin 9.2 (L) 11.6 - 11/11/2017 [facility] 15.0 g/dL 12:45 PM CDT [facility] Hematocrit 29.6 (L) 35.5 - 11/11/2017 [facility] 44.9 % 12:45 PM CDT [facility] Erythrocytes 3.39 (L) 3.92 - 11/11/2017 [facility] 5.13 12:45 PM CDT [facility] x10(12)/L [facility] [place] [facility] MCV 87.3 78.2 - 11/11/2017 [facility] 97.9 fL 12:45 PM CDT [facility] LAB RBC Distrib Width 15.4 12.2 - 11/11/2017 [facility] 16.1 % 12:45 PM CDT [facility] Platelet Count 374 (H) 157 - 371 11/11/2017 [facility] x10(9)/L 12:45 PM CDT [facility] Leukocytes 15.1 (H) 3.4 - 9.6 11/11/2017 [facility] x10(9)/L 12:45 PM CDT [facility] Neutrophils 10.79 (H) 1.56 - 11/11/2017 [facility] 6.45 12:45 PM CDT [facility] x10(9)/[facility] Lymphocytes 3.57 (H) 0.95 - 11/11/2017 [facility] 3.07 12:45 PM CDT [facility] x10(9)/L [facility] Monocytes 0.65 0.26 - 11/11/2017 [facility] 0.81 12:45 PM CDT [facility] x10(9)/L [facility] Eosinophils 0.03 0.03 - 11/11/2017 [facility] 0.48 12:45 PM CDT [facility] x10(9)/[facility] Basophils 0.05 0.01 - 11/11/2017 [facility] 0.08 12:45 PM CDT [facility] x10(9)/L [facility] Specimen Anatomical Collection Method Collection Time Receive d Time (Source) Location / / Volume Laterality Blood (Blood, 11/11/2017 12:18 11/11/2017 Venous) PM CDT 12:40 PM CDT Seng Reyna M.D. 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 PCP - General 02/04/17 04/26/19 documented as of this encounter
--- OUTSIDE RECORDS SUMMARY | 2022-07-08 08:54 | XMS_ITS | Encounter Summary ---
:1985 Author Organization [facility] Address [address] [place] [address] Care Team Providers Name Role Phone Blaire Bundy P.A.-C. Primary Care Provider [phone] Encounter Details Date Type Department Care Team Description 11/12/2017 Hospital Encounter HX NO MAPPING Nichole Lerma [address] [place], [place] [phone] Social History Tobacco Use [...] How often do you attend orthodoxy or hoahaoism More than 4 time s [...] documented as of this encounter Care Teams Class C Truck Driver Relationship Specialty Start Date End Date Blaire Bundy P.A.-C. PCP - General 02/04/17 04/26/19 documented as of this encounter
--- OUTSIDE RECORDS SUMMARY | 2022-07-08 08:54 | XMS_ITS | Encounter Summary ---
:1985 Author Organization [facility] Address [address] [place] [address] Care Team Providers Name Role Phone Blaire [...] How often do you attend hinduism or orthodoxy More than 4 time s [...] documented as of this encounter Care Teams Hospitalist Program Director Relationship Specialty Start Date End Date Blaire Bundy PGladys. PCP - General 02/04/17 04/26/19 documented as of this encounter
--- OUTSIDE RECORDS SUMMARY | 2022-07-08 08:55 | XMS_ITS | Encounter Summary ---
:1985 Author Organization [facility] Address [address] [place] [address] Care Team Providers Name Role Phone Blaire Bundy P.A.-C. Primary Care Provider [phone] Reason for Visit Reason Comments Abdominal [...] Expiration Date Visits Requ ested Visits Authorized [id number] 1 1 Encounter Details Date Type Department Care Team Description 09/08/2017 Surgery [facility] MAIN OR Jaquan Monahan, LAPAROSCOPIC [address]HEL[address] D.OBrittaney APPENDECTOMY NEHEMIAH GRANT [phone] [facility] car[facility] W [phone] NEHEMIAH Nix [phone] (Wo rk) Social History [...] Comments Blood Pressure 143/71 09/08/2017 2:13 PM [facility] Pulse 116 09/08/2017 2:13 PM [facility] Temperature 36.9 ??C (98.4 ??F) 09/08/2017 2:13 PM [facility] Respiratory Rate 16 09/08/2017 2:13 PM [facility] Oxygen Saturation 96% 09/08/2017 2:13 PM [facility] Inhaled Oxygen Concentration - - Weight 145 kg (319 lb 10.7 oz) 09/08/2017 2:13 PM [facility] Height 157.5 cm (5' 2) 09/08/2017 10:09 AM [facility] Body Mass Index 58.47 09/08/2017 10:09 AM [facility] documented in this encounter Discharge Summaries Seng Reyna M.D. - 09/09/2017 9:51 AM CST INPATIENT DISCHARGE SUMMARY BRIEF OVERVIEW Discharge Provider: Taryn Ozuna M.D. Primary Care Providers: Blaire Thornton P.A.-C. (General) [address] [place] [phone] Primary Care Provider Primary Care Provider Other Providers: Admission Date: 09/08/2017 Discharge Date: 09/09/2017 PRINCIPAL DIAGNOSIS Appendicitis Acute SECONDARY DIAGNOSES Principal Problem: Appendicitis Acute Resolved Problems: * No resolved hospital problems. * Operative Procedures: Scheduled (Blank), Completed (Comp) or Canceled (Can) Case IDs Date Procedure Surgeon Location Status [id number] 09/08/17 LAPAROSCOPIC APPENDECTOMY Jaquan Monahan D.O. [facility] OR Comp DISCHARGE DISPOSITION Home or Self Care [1] ACTIVE ISSUES REQUIRING FOLLOW UP Surgical Pathology OUTPATIENT FOLLOW UP No future appointments. TEST RESULTS PENDING AT DISCHARGE Pending Labs Order Current Status Pathology Services Collected (09/08/17 3637) DISCHARGE MEDICATIONS Your medication list START taking [...] Your Medications These medications were sent to [facility] [address] [address] ?? ciprofloxacin 500 mg tablet ?? metroNIDAZOLE [...] ADMISSION ANESTHESIA FOLLOW-UP CONDITION AT DISCHARGE improved [facility] documented in this encounter Discharge Instructions AttachmentsThe following attachments cannot be sent through Care Everywhere.Care Following Your Laparoscopy (Martiniquais)documented in this encounter Medications at Time of [...] /or at baseline Post Op nausea/vomiting: none [facility] documented in this encounter H&P Notes Jaquan [...] or fallopian tube. She gives informed consent. [facility] documented in this encounter Nursing Notes Kiera [...] mucous membranes remain intact Adequate for Discharge [facility] Suni Perales R.N. - 09/09/2017 2:12 AM [...] this is a recent diagnosis for her. [facility] Charline Lundberg R.N. - 09/08/2017 9:42 PM [...] o-1 Refuses pain medication at this time [facility] documented in this encounter OR Notes Op Note - Jaquan Monahan D.O. - 09/08/2017 4:35 PM CST FULL OP NOTE Procedure(s): LAPAROSCOPIC APPENDECTOMY Surgeon(s) and Role: * Jaquan Monahan D.O. - Primary Cbx Operator: Mandi Santoyo L.P.N.; Nichole Allen L.P.N. Anesthesia [...] implants in log * Jaquan Monahan D.O. [facility] Brief Op Note - Jaquan Monahan D.O. [...] implants in log * Jaquan Monahan D.O. [facility] documented in this encounter ED Notes Dimitri [...] for admission. He will contact the nursing pharmaceutical compounding supervisor to determine a plan of when [...] was going to talk with the nursing pharmaceutical compounding supervisor and the operating room about the [...] accurate and complete. Dimitri Car M.D. 09/08/172138 [facility] documented in this encounter Plan of Treatment Scheduled Procedures Name Priority Associated Diagnoses Date/Time COLONOSCOPY Diarrhea Scheduled Referrals Name Type Priority Associated Diagnoses Order S [facility] General Surgery Outpatient Referral Routine Appendicitis Acute Expected: Post Op (clinic) 09/15/2017 (Approximate), Expires: 09/09/2020 documented as of this encounter Procedures Procedure Name Priority Date/Time Associated Comments Diagnosis CBC WITH Routine 09/09/2017 7:05 Results for DIFFERENTIAL, B AM [facility] this procedu re are in the results section. INCENTIVE Routine 09/08/2017 6:39 SPIROMETRY - RT/RN PM [facility] INCENTIVE Routine 09/08/2017 6:39 SPIROMETRY - RT/RN PM [facility] INCENTIVE Routine 09/08/2017 6:39 SPIROMETRY - RT/RN PM [facility] INCENTIVE Routine 09/08/2017 6:39 SPIROMETRY - RT/RN PM [facility] INCENTIVE Routine 09/08/2017 6:39 SPIROMETRY - RT/RN PM [facility] INCENTIVE Routine 09/08/2017 6:39 SPIROMETRY - RT/RN PM [facility] INCENTIVE Routine 09/08/2017 6:39 SPIROMETRY - RT/RN PM [facility] INCENTIVE Routine 09/08/2017 6:39 SPIROMETRY - RT/RN PM [facility] INCENTIVE Routine 09/08/2017 6:39 SPIROMETRY - RT/RN PM [facility] INCENTIVE Routine 09/08/2017 6:39 SPIROMETRY - RT/RN PM [facility] INCENTIVE Routine 09/08/2017 6:39 SPIROMETRY - RT/RN PM [facility] ADULT OXYGEN Routine 09/08/2017 5:43 THERAPY PM [facility] PATHOLOGY SERVICES Routine 09/08/2017 5:08 Appendicitis Acute Results for PM [facility] this procedure are in the results section. LAPAROSCOPIC 09/08/2017 4:06 Appendicitis Acute APPENDECTOMY PM [facility] CT ABDOMEN PELVIS RAD - Semiurgent 09/08/2017 11:53 Re sults for WITH IV CONTRAST (Fast; most ED AM [facility] this proc edure patients; some are in the inpatients) results section. IRIS MICROSCOPIC, U STAT 09/08/2017 11:03 Resu lts for AM [facility] this procedure are in the results section. URINALYSIS WITH STAT 09/08/2017 11:03 Results for MICROSCOPIC IF AM [facility] this procedur e INDICATED, U are in the results section. HEPATIC FUNCTION STAT 09/08/2017 10:50 Results for PANEL, S AM [facility] this procedure are in the results section. CBC WITH STAT 09/08/2017 10:50 Results for DIFFERENTIAL, B AM [facility] this procedu re are in the results section. C-REACTIVE PROTEIN STAT 09/08/2017 10:50 Resul ts for (CRP), S/P AM [facility] this procedure are in the results section. HUMAN CHORIONIC STAT 09/08/2017 10:50 Results for GONADOTROPIN (HCG), AM [facility] this pro cedure MARCI, are in the results section. LIPASE, S/P STAT 09/08/2017 10:50 Results for AM [facility] this procedure are in the results section. LACTATE, B/P STAT 09/08/2017 10:50 Results for AM [facility] this procedure are in the results section. BASIC METABOLIC STAT 09/08/2017 10:50 Results for PANEL, S/P AM [facility] this procedure are in the results section. documented in this encounter Results (ABNORMAL) CBC with Differential (09/09/2017 7:05 AM [facility]) [facility] Method Time Signature Hemoglobin 11.1 (L) 11.6 - 09/09/2017 [facility] 15.0 g/dL 7:11 AM [facility] Hematocrit 34.8 (L) 35.5 - 09/09/2017 [facility] 44.9 % 7:11 AM [facility] [facility] Erythrocytes 4.18 3.92 - 09/09/2017 [facility] 5.13 7:11 AM [facility] HEALTH x10(12)/L [facility] MCV 83.3 78.2 - 09/09/2017 [facility] 97.9 fL 7:11 AM [facility] RBC Distrib Width 13.6 12.2 - 09/09/2017 [facility] 16.1 % 7:11 AM [facility] Platelet Count 263 157 - 371 09/09/2017 [facility] x10(9)/L 7:11 AM [facility] [facility] Leukocytes 11.8 (H) 3.4 - 9.6 09/09/2017 [facility] x10(9)/L 7:11 AM [facility] [facility] Neutrophils 10.54 (H) 1.56 - 09/09/2017 [facility] 6.45 7:11 AM [facility] HEALTH x10(9)/L [facility] Lymphocytes 0.65 (L) 0.95 - 09/09/2017 [facility] 3.07 7:11 AM [facility] HEALTH x10(9)/L [facility] Monocytes 0.57 0.26 - 09/09/2017 [facility] 0.81 7:11 AM [facility] HEALTH x10(9)/L [facility] Eosinophils 0.01 (L) 0.03 - 09/09/2017 [facility] 0.48 7:11 AM [facility] HEALTH x10(9)/L [facility] Basophils 0.01 0.01 - 09/09/2017 [facility] 0.08 7:11 AM [facility] HEALTH x10(9)/L [facility] Specimen Anatomical Collection Method Collection Time Receive d Time (Source) Location / / Volume Laterality Blood (Blood, 09/09/2017 7:05 AM 09/09/19 7:08 Venous) [facility] AM [facility] Jaquan Monahan D.O. LAB BLOOD ADD-ON Performing Organization Address City/[facility]/ZIP [facility] Phon e Number [facility] [address] [place] [address] [facility] Pathology Services (09/08/2017 5:08 PM [facility]) Component Value Ref Test Analysis Performed At [facility] Range Method Time Signature PATHOLOGY Patient Name: [facility] MR#: [id number] [facility] Submitting Physician: JAQUAN MONAHAN DO [id number] Specimen #[id number] Performing Lab: ??[facility] ? [address] [place] [id number] Source: Appendix Clinical History/Pre-Op Appendicitis acute [K35.80] Gross Description Labeled appendix consists of a 6.1 cm in length x 1.2 cm in diameter appendix, with attached mesoappendix ( 2.4 cm). ??The serosa is gatica-brown with focal areas of white exudate. ??The muco sa is red-brown hemorrhagic to necrotic. ??An area of disruption is not grossly id entified. ??Coupon Manifest Clerk sections are submitted in cassette A1. KG/ed ?? Diagnosis Appendix, appendectomy: ACUTE APPENDICITIS WITH PERIAPPENDICITIS. Electronically Signed By JANNET HERNÁNDEZ MD - 09/10/2017 ed/09/10/2017 Specimen (Source) Anatomical Collection Method Collection Time Re ceived Time Location / / Volume Laterality Tissue (Appendix) 09/08/2017 5:08 PM [facility] Comment: Acute appendicitis Jaquan Monahan D.O. LAB SURG PATH ORDERABLES Performing Organization Address City/[facility]/ZIP Code Phon e Number [address] [address] [place] Abdomen Pelvis with IV Contrast (09/08/2017 11:53 AM [facility]) Anatomical Region Laterality Modality Abdomen, Pelvis N/A Computed Tomography Specimen (Source) Anatomical Collection Method Collection Time Re ceived Time Location / / Volume Laterality 09/08/2017 12:00 PM [facility] Impressions 09/08/2017 12:07 PM [facility] IMPRESSION: 1. ??Acute uncomplicated appendicitis. 2. ??Hepatic steatosis. 3. ??Prominent follicle right ovary. Narrative 09/08/2017 12:07 PM [facility] EXAM: CT ABDOMEN PELVIS WITH IV CONTRAST [...] (ABNORMAL) Iris Microscopic, U (09/08/2017 11:03 AM [facility]) Analysis Performed At Patho logist Time Signature White Blood 11-20 (A) /hpf 09/08/2017 [facility] Cells 11:13 AM [facility] Comment: ----REFERENCE VALUE---- Males: 0-3 Females: 0-10 Unknown: 0-10 Red Blood Cells Occ-2 0 - 2 /hpf 09/08/2017 11:13 AM [facility] Mucus Present /hpf 09/08/2017 11:13 AM [facility] Squamous Epithelial Occ-3 /hpf 09/08/2017 11:13 AM [facility] Bacteria Present (A) None Seen 09/08/2017 11:13 AM [facility] Specimen Anatomical Collection Method Collection Time Receive d Time (Source) Location / / Volume Laterality Urine 09/08/2017 11:03 09/08/2017 AM [facility] 11:05 AM [facility] Dimitri Car M.D. LAB URINE ORDERABLES Performing Organization Address City/State/ZIP Code Phon e Number [facility] [address] [place] [address] LAB (ABNORMAL) Urinalysis with Microscopic if Indicated (09/08/2017 11:03 AM [facility]) Analysis Performed At Patho logist Time Signature Source Midstream 09/08/2017 [facility] 11:13 AM [facility] Clarity Slightly Clear 09/08/2017 [facility] Cloudy (A) 11:13 AM [facility] Color Yellow 09/08/2017 [facility] 11:13 AM [facility] Comment: ----REFERENCE VALUE---- Colorless Yellow Philomena Blood Negative Negative 09/08/2017 11:13 AM [facility] Nitrite Positive (A) Negative 09/08/2017 11:13 AM [facility] Leukocyte Esterase Moderate (A) Negative 09/08/2017 11:1 3 AM [facility] Protein, U Trace mg/dL 09/08/2017 11:13 AM [facility] Comment: ----REFERENCE VALUE---- Negative Trace Glucose Negative Negative mg/dL 09/08/2017 11:13 AM [facility] Ketone Negative Negative mg/dL 09/08/2017 11:13 AM [facility] Bilirubin Negative Negative 09/08/2017 11:13 AM [facility] pH 6.0 5.0 - 8.0 09/08/2017 11:13 AM [facility] Specific [place] 1.015 1.001 - 1.035 09/08/2017 11:13 AM [facility] Urobilinogen 0.2 0.2 - 1.0 09/08/2017 11:13 AM [facility] Specimen Anatomical Collection Method Collection Time Receive d Time (Source) Location / / Volume Laterality Urine (Urine, 09/08/2017 11:03 09/08/2017 Clean Catch) AM [facility] 11:05 AM [facility] Dimitri Car M.D. LAB URINE ORDERABLES Performing Organization Address City/State/ZIP Code Phon e Number [facility] [address] [facility] [place] [address] [place] [facility] (ABNORMAL) CRP (C-Reactive Protein) (09/08/2017 10:50 AM [facility]) Analysis Performed At Patho logist Time Signature C-Reactive 115.8 (H) <=8.0 mg/L 09/08/2017 [facility] Protein (CRP), 11:12 AM [facility] Specimen Anatomical Collection Method Collection Time Receive d Time (Source) Location / / Volume Laterality Blood (Blood, 09/08/2017 10:50 09/08/2017 Venous) AM [facility] 10:52 AM [facility] Dimitri Car M.D. LAB BLOOD ADD-ON Performing Organization Address City/State/ZIP Code Phon e Number [address] [address] [place] [facility] hCG (Human Chorionic Gonadotropin), Quantitative, (09/08/2017 10:50 AM [facility]) P athologist Signature HCG, <0.5 IU/L 09/08/2017 [facility] Quantitative, 11:36 AM [facility] [place] [facility] Comment: Biotin has been identified by the doug saucedo as a potential interfering substance. ??Higher concentr ations of biotin may be found in multivitamins, hair/nail supple ments, and workout supplements. ??If the result does not [facility] clinical observations, repeat testing after patient refrains fr om the use of supplements for at least 12 hours. ----REFERENCE VALUE---- <5.0 Negative 5.0-25.0 Indeterminate >25.0 Positive Specimen Anatomical Collection Method Collection Time Receive d Time (Source) Location / / Volume Laterality Blood (Blood, 09/08/2017 10:50 09/08/2017 Venous) AM [facility] 10:52 AM [facility] Dimitri Car M.D. LAB BLOOD ADD-ON Performing Organization Address City/State/ZIP Code Phon e Number [facility] [address] [place] [id number] [facility] Lipase (09/08/2017 10:50 AM [facility]) P athologist Signature Lipase, P 22 13 - 60 U/L 09/08/2017 [facility] 11:13 AM [facility] Specimen Anatomical Collection Method Collection Time Receive d Time (Source) Location / / Volume Laterality Blood (Blood, 09/08/2017 10:50 09/08/2017 Venous) AM [facility] 10:52 AM [facility] Dimitri Car M.D. LAB BLOOD ADD-ON Performing Organization Address City/State/ZIP Code Phon e Number [facility] [place] [address] [facility] Lactate (09/08/2017 10:50 AM [facility]) P athologist Signature Lactate, P 0.7 0.6 - 2.3 09/08/2017 [facility] mmol/L 11:11 AM Project Manager LAB Specimen Anatomical Collection Method Collection Time Receive d Time (Source) Location / / Volume Laterality Blood (Blood, 09/08/2017 10:50 09/08/2017 Venous) AM [facility] 10:52 AM [facility] Dimitri Car M.D. LAB BLOOD NON ADD-ON Performing Organization Address City/State/ZIP Code Phon e Number [facility] [facility] [place] [address] [facility] (ABNORMAL) Hepatic Function Panel (09/08/2017 10:50 AM [facility]) Patholo gist Method Time Signature Bilirubin, Total, S 1.1 <=1.2 09/08/2017 [facility] mg/dL 11:12 AM Project [facility] LAB Bilirubin, Direct, S 0.2 0.0 - 0.3 09/08/2017 [facility] [place] mg/dL 11:12 AM Project [facility] LAB Aspartate 32 8 - 43 09/08/2017 [facility] Aminotransferase U/L 11:12 AM [employer] (AST), [employer] LAB Alanine 83 (H) 7 - 45 09/08/2017 [facility] Aminotransferase U/L 11:12 AM [employer] (ALT), [employer] LAB Alkaline 101 (H) 37 - 98 09/08/2017 [facility] Phosphatase, S U/L 11:12 AM Project Manager LAB Albumin, S 3.9 3.5 - 5.0 09/08/2017 [facility] g/dL 11:12 AM Project Manager LAB Protein, Total, S 6.9 6.3 - 7.9 09/08/2017 [facility] g/dL 11:12 AM Project Manager LAB Specimen Anatomical Collection Method Collection Time Receive d Time (Source) Location / / Volume Laterality Blood (Blood, 09/08/2017 10:50 09/08/2017 Venous) AM [facility] 10:52 AM [facility] Dimitri Car M.D. LAB BLOOD ADD-ON Performing Organization Address City/State/ZIP Code Phon e Number [facility] [address] [place] [address] [facility] BMP (Basic Metabolic Panel) (09/08/2017 10:50 AM [facility]) P athologist Signature Potassium, P 4.2 3.6 - 5.2 09/08/2017 [facility] mmol/L 11:13 AM [facility] Sodium, P 135 135 - 145 09/08/2017 [facility] mmol/L 11:13 AM [facility] Chloride, P 99 98 - 107 09/08/2017 [facility] mmol/L 11:13 AM [facility] Bicarbonate, P 22 22 - 29 09/08/2017 [facility] mmol/L 11:13 AM [facility] Anion Gap, P 14 7 - 15 09/08/2017 [facility] 11:13 AM [facility] BUN (Blood Urea 7 6 - 21 09/08/2017 [facility] Nitrogen), P mg/dL 11:13 AM [facility] Creatinine 0.62 0.59 - 09/08/2017 [facility] 1.04 mg/dL 11:13 AM [facility] eGFR-Black/Afri >90 >=60 09/08/2017 [facility] can [place] mL/min/BSA 11:[address] [facility] LAB Comment: ----ADDITIONAL INFORMATION---- Estimated GFR calculated using the 2009 CKD_EPI creatinine equation. eGFR Non-Black/ >90 >=60 mL/min/BSA 09/08/2017 11:13 AM [facility] [place] [facility] Comment: ----ADDITIONAL INFORMATION---- Estimated GFR calculated using the 2009 CKD_EPI creatinine equation. Calcium, Total, P 9.1 8.9 - 10.1 mg/dL 09/08/2017 1 1:13 AM [facility] Glucose, P 104 70 - 140 mg/dL 09/08/2017 11:13 AM [facility] LAB Specimen Anatomical Collection Method Collection Time Receive d Time (Source) Location / / Volume Laterality Blood (Blood, 09/08/2017 10:50 09/08/2017 Venous) AM [facility] 10:52 AM [facility] Dimitri Car M.D. LAB BLOOD ADD-ON Performing Organization Address City/State/ZIP Code Phon e Number [facility] [address] [facility] [place] [address] [place] [facility] (ABNORMAL) CBC with Differential (09/08/2017 10:50 AM [facility] CALL [facility]) [facility] Method Time Signature Hemoglobin 12.3 11.6 - 09/08/2017 [facility] 15.0 g/dL 10:56 AM [facility] Hematocrit 37.8 35.5 - 09/08/2017 [facility] 44.9 % 10:56 AM [facility] Erythrocytes 4.60 3.92 - 09/08/2017 [facility] 5.13 10:56 AM [facility] [employer] x10(12)/L [facility] MCV 82.2 78.2 - 09/08/2017 [facility] 97.9 fL 10:56 AM [facility] RBC Distrib Width 13.9 12.2 - 09/08/2017 [facility] 16.1 % 10:56 AM [facility] Platelet Count 293 157 - 371 09/08/2017 [facility] x10(9)/L 10:56 AM [facility] Leukocytes 15.8 (H) 3.4 - 9.6 09/08/2017 [facility] x10(9)/L 10:56 AM [facility] Neutrophils 13.48 (H) 1.56 - 09/08/2017 [facility] 6.45 10:56 AM [facility] [employer] x10(9)/L [facility] LAB Lymphocytes 1.35 0.95 - 09/08/2017 [facility] 3.07 10:56 AM [facility] [employer] x10(9)/L [facility] Monocytes 0.87 (H) 0.26 - 09/08/2017 [facility] 0.81 10:56 AM [facility] [employer] x10(9)/L [facility] Eosinophils 0.04 0.03 - 09/08/2017 [facility] 0.48 10:56 AM [facility] HEALTH x10(9)/L [facility] [place] [facility] Basophils 0.03 0.01 - 09/08/2017 [facility] 0.08 10:56 AM [facility] HEALTH x10(9)/L [facility] Specimen Anatomical Collection Method Collection Time Receive d Time (Source) Location / / Volume Laterality Blood (Blood, 09/08/2017 10:50 09/08/2017 Venous) AM [facility] 10:52 AM [facility] Dimitri Car M.D. LAB BLOOD ADD-ON Performing Organization Address City/State/ZIP Code Phon e Number [facility] [address] [place] [address] [facility] [facility] documented in this encounter Visit Diagnoses Diagnosis Appendicitis Acute - Primary Appendicitis Acute Appendicitis Acute documented in this encounter Administered Medications Inactive Administered Medications - up to 3 most recent administrations Medication Order MAR Action Action Date Dose Rate Site ciprofloxacin in D5W IVPB New Bag 09/08/2017 12:29 PM 400 mg 2 00 mL/hr Right Hand 400 mg (for_CIPRO) [facility] 400 mg, intravenous, at 200 mL/hr, Administer over 60 Minutes, Once, On Wed09/08/17 at 1216, For 1 dose, premix bag, Drug Monitoring Program: Pharmacist to adjust medication order based on comorbities and indication., Indications: Appendicitis ciprofloxacin in D5W IVPB New Bag 09/09/2017 12:23 AM 400 mg 2 00 mL/hr Right Hand 400 mg (for_CIPRO) [facility] 400 mg, intravenous, at 200 mL/hr, Administer over 60 Minutes, Once, On Wed09/09/17 at 0030, For 1 dose, Start within 12 hours of last dose. premix bag, Drug Monitoring Program: Pharmacist to adjust medication order based on comorbities and indication., Indications: Prophylaxis, surgical heparin (porcine) 5,000 Given 09/08/2017 2:43 PM [facility] 5,000 Units Abdominal Tissue unit/0.5 mL injection - ADS Override Pull Starting on Wed09/08/17 at 1426, For 1 dose, Created by cabinet override heparin (porcine) Given 09/09/2017 9:14 AM [facility] 7,500 Units Left Lower Abdomen injection 7,500 Units 7,500 Units, subcutaneous, 3 times daily, First dose on Wed09/09/17 at 0145 Given 09/09/2017 1:48 AM [facility] 7,500 Units Right Lower Abdomen HYDROmorphone injection 0.5 mg (for_DILA UDID) Given 09/08/2017 2:40 PM [facility] 0.5 mg 0.5 mg, intravenous, Every 1 hour PRN, moderate pain or score 4-6 of 10, Starting on Wed09/08/17 at 1253 iohexol 350 mg iodine/mL solution Given 09/08/2017 11:54 AM [facility] 171 mL Right Hand 171 mL (for_OMNIPAQUE) 171 mL, intravenous, Once in imaging, contrast, Starting on Wed09/08/17 at 1059, For 1 dose ketorolac injection 30 mg Given 09/08/2017 10:57 AM [facility] 30 mg Right Hand (for_TORADOL) 30 mg, intravenous, Once, On Wed09/08/17 at 1040, For 1 dose, Adult IV push rate: Over 15 seconds. Peds IV push rate: Over 1 minute. 60 mg dose only for IM, not recommended for IV., Drug Monitoring Program: Pharmacist to adjust medication order based on comorbities and indication. lactated ringers New Bag 09/08/2017 2:50 PM [facility] 20 mL/hr 20 mL/hr 20 mL/hr, intravenous, Continuous, Starting on Wed09/08/17 at 1430, Pre-Op lactated ringers Rate/Dose Verify 09/08/2017 10:00 PM [facility] 75 mL/hr 75 mL/hr 75 mL/hr, intravenous, Continuous, Starting on Wed09/08/17 at 2000 New Bag 09/08/2017 7:55 PM [facility] 75 mL/hr 75 mL/hr lidocaine 50 mL, bupivacaine PF Given 09/08/2017 5:17 PM [facility] 9 m L Abdominal Tissue 50 mL 100 mL injection As needed, Starting on Wed09/08/17 at 1717, Intra-Op metroNIDAZOLE in NaCl (iso-osm) New Bag 09/08/2017 1:39 PM [facility] 500 mg 200 mL/hr IVPB 500 mg (for_FLAGYL) 500 mg, intravenous, at 200 mL/hr, Administer over 30 Minutes, Once, On Wed09/08/17 at 1210, For 1 dose, Indications: Appendicitis metroNIDAZOLE in NaCl (iso-osm) New Bag 09/09/2017 5:36 AM [facility] 500 mg 200 mL/hr IVPB 500 mg (for_FLAGYL) 500 mg, intravenous, at 200 mL/hr, Administer over 30 Minutes, Every 8 hours, First dose on Wed09/08/17 at 2145, For 2 doses, Start within 8 hours of last dose., Indications: Prophylaxis, surgical New Bag 09/08/2017 9:25 PM [facility] 500 mg 200 mL/hr morphine injection 4 mg Given 09/08/2017 10:57 AM [facility] 4 mg 4 mg, intravenous, Every 20 min PRN, moderate pain or score 4-6 of 10, severe pain or score 7-10 of 10, Starting on Wed09/08/17 at 1038, For 3 doses NaCl 0.9 % bolus 1,000 New Bag 09/08/2017 10:58 AM 1,000 mL 2000 mL/hr Right Hand mL [facility] 1,000 mL, intravenous, at 2,000 mL/hr, Administer over 0.5 Hours, Once, On Wed09/08/17 at 1040, For 1 dose NaCl 0.9% infusion New Bag 09/08/2017 11:27 AM 1,000 mL/hr 1000 mL/hr Right Aiken nd 1,000 mL/hr, [facility] intravenous, Continuous, Starting on Wed09/08/17 at 1040, For Hydration ondansetron (PF) injection 4 mg (for_ZOF RAN) Given 09/08/2017 2:51 PM [facility] 4 mg 4 mg, intravenous, Every 20 min PRN, nausea, vomiting, Starting on Wed09/08/17 at 1038, For 2 doses Given 09/08/2017 10:57 AM [facility] 4 mg ondansetron (PF) injection 4 mg (for_ZOF RAN) 4 mg, intravenous, Every 6 hours PRN, na usea, vomiting, Starting on Wed09/08/17 at 1254 oxyCODONE IR tablet 5 mg (for_ROXICODONE ) Given 09/09/2017 5:45 AM [facility] 5 mg 5 mg, oral, Every 4 hours PRN, mild pain or score 1-3 of 10, Starting on Wed09/08/17 at 1839 Given 09/09/2017 12:40 AM [facility] 5 mg sodium chloride 0.9 % injection 10 mL 10 mL, intravenous, As needed, line care, Starting on Wed09/08/17 at 1037, Peripheral Intravenous Catheter and Rapid Infusion Cat heter, prior to blood sampling, post blood transfusion or post blood samplin g sodium chloride 0.9 % injection 10 Given 09/08/2017 11:55 AM [facility] 10 mL Right Hand mL 10 mL, [...] % injection 80 Given 09/08/2017 11:09 AM [facility] 80 mL Right Hand mL 80 mL, intravenous, Once, On Wed09/08/17 at 1109, For 1 dose documented in this encounter Active and Recently Administered Medications Times are shown in [facility]. Scheduled Medication Order 09/07/2017 09/08/2017 09/09/2017 ciprofloxacin [...] available)1440 (Given - Provider: Zelda Vilchis, R.N.)181 ([facility] Unhold - Provider: Transfer Provider, Automatic) [...] bupivacaine PF 50 mL 100 mL injection ([facility]) 1717 (Given - Provider: Jaquan Monahan D.O.) As needed, Starting on Wed09/08/17 at 1717, Intra-Op morphine injection 4 mg 1057 (Given - Pr ovider: Keiry Perales R.N.)1408 ([facility] Hold - Provider: Transfer Provider, Automatic - Reason: Patient not available)181 ([facility] Unhold - Provider: Transfer Provider, Automatic) [...] documented as of this encounter Care Teams Valve Inserter Relationship Specialty Start Date End Date Blaire Bundy P.A.-C. PCP - General 02/04/17 04/26/19 documented as of this encounter
--- OUTSIDE RECORDS SUMMARY | 2022-07-08 08:55 | XMS_ITS | Encounter Summary ---
:1985 Author Organization [facility] Address [address] [place] [address] Care Team Providers Name Role Phone Blaire Bundy P.A.-C. Primary Care Provider [phone] Reason for Visit Reason Comments Communication [facility] hospital follow-up Encounter Details Date Type Department Care Team Description 09/10/2017 Clinical Department of Suellen Beasley on ([facility] Internal R, R.N. hospital follow-up) Medicine in [address] [place] [address], [address] [place] [address] [place] [phone] (Work) [phone] Social History Tobacco Use Types Packs/Day Years [...] How often do you attend anglican or uatsdin More than 4 time s [...] to pay for the very basics like Knottykart hat hard 07/09/2020 food, housing, medical care, [...] 8:02 AM CST See previous note, duplicate. IGN STUDENT ADVISER Telephone Encounter - Suellen Beasley R.N. - 09/10/2017 7:40 AM CST Discharge date 09/09/17 at 1230. Reason for hospitalization Appendicitis acute. Follow up scheduled for 09/20/17. IGN STUDENT ADVISER documented in this encounter Plan of Treatment Scheduled Procedures Name Priority Associated Diagnoses Date/Time COLONOSCOPY Diarrhea documented as of this encounter Visit Diagnoses Not on filedocumented in this encounter Additional Health Concerns Assessment Noted Time PHQ-9 Depression Total Score: 7 04/07/2017 9:39 AM CDT documented as of this encounter Care Teams Executive Assistant Relationship Specialty Start Date End Date Blaire Bundy P.A.-C. PCP - General 02/04/17 04/26/19 documented as of this encounter
--- OUTSIDE RECORDS SUMMARY | 2022-07-08 08:55 | XMS_ITS | Encounter Summary ---
:1985 Author Organization [facility] Address [address] [place] [address] Care Team Providers Name Role Phone Blaire Bundy P.A.-C. Primary Care Provider [phone] Encounter Details Date Type Department Care Team Description 11/08/2017 Orders Only Department of Rubio Baker Calculus Of Bile Duct Gastroenterology in Marko Marcos M.D. Without Cholangitis [place], [place] [address] Or Cholecystitis With [address] [place], [place] Obstruction ([place] [phone] Dx) [phone] Social History Tobacco Use Types Packs/Day Years [...] How often do you attend baptism or taoist More than 4 time s [...] to pay for the very basics like [place] hat hard 07/09/2020 food, housing, medical care, [...] documented as of this encounter Care Teams Bottle Label Inspector Relationship Specialty Start Date End Date Blaire Bundy P.A.-C. PCP - General 02/04/17 04/26/19 documented as of this encounter
--- OUTSIDE RECORDS SUMMARY | 2022-07-08 08:55 | XMS_ITS | Encounter Summary ---
:1985 Author Organization [facility] Address [address] [place] [address] Care Team Providers Name Role Phone Blaire Bundy P.A.-C. Primary Care Provider [phone] Reason for Visit Reason Comments Chest Pain Pain With Breathing Encounter Details Date Type Department Care Team Description 11/04/2017 Emergency [facility] Berny Garcia M.D. [address] [place] [address] Pleurisy (Primary Dx) Department Erlin Garcia M.D. 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 Pleurisy (Polish)documented in this encounter Medications at Time [...] family history of her father having an IA in his 50s she is presenting now [...] Troponin T, S <0.01 <0.01 ng/mL 11/04/2017 [facility] 6:03 PM CDT [facility] Comment: Biotin has been identified by the doug saucedo as a potential interfering substance. ??Higher concentr ations of biotin may be found in multivitamins, hair/nail supple ments, and workout supplements. ??If the result does not [facility] clinical observations, repeat testing after patient refrains fr om the use of supplements for at least 12 hours. Specimen Anatomical Collection Method Collection Time Receive d Time (Source) Location / / Volume Laterality Blood (Blood, 11/04/2017 5:43 PM 11/05/19 18 5:43 Venous) CDT PM CDT Berny Garcia M.D. LAB BLOOD ADD-ON Performing Organization Address City/State/ZIP Code Phon e Number [facility] [address] [place] [address] [facility] (ABNORMAL) D-Dimer (11/04/2017 5:43 PM CDT) athologist Signature D-Dimer, P 2.06 (H) <0.50 11/04/2017 [facility] mcg/mL FEU 5:59 PM CDT [facility] Comment: ----ADDITIONAL INFORMATION---- Results of this [...] City/State/ZIP Code Phon e Number [facility] [address] [place] [address] [facility] (ABNORMAL) CMP (Comprehensive Metabolic Panel) (11/04/2017 5:43 PM CDT) P athologist Signature Potassium, P 4.3 3.6 - 5.2 11/04/2017 [facility] mmol/L 6:03 PM [facility] Sodium, P 139 135 - 145 11/04/2017 [facility] mmol/L 6:03 PM [facility] Chloride, P 100 98 - 107 11/04/2017 [facility] mmol/L 6:03 PM [facility] Bicarbonate, P 26 22 - 29 11/04/2017 [facility] mmol/L 6:03 PM [facility] Anion Gap, P 13 7 - 15 11/04/2017 [facility] 6:03 PM [facility] BUN (Blood Urea 11 6 - 21 11/04/2017 [facility] Nitrogen), P mg/dL 6:03 PM [facility] Creatinine 0.69 0.59 - 11/04/2017 [facility] 1.04 mg/dL 6:03 PM [facility] eGFR-Black/Afri >90 >=60 11/04/2017 [facility] can [place] mL/min/BSA 6:03 PM [facility] Comment: ----ADDITIONAL INFORMATION---- Estimated GFR calculated using the 2009 CKD_EPI creatinine equation. eGFR Non-Black/ >90 >=60 mL/min/BSA 11/04/2017 6:03 PM [facility] [place] [facility] Comment: ----ADDITIONAL INFORMATION---- Estimated GFR calculated using the 2009 CKD_EPI creatinine equation. Calcium, Total, P 9.6 8.9 - 10.1 11/04/2017 6:03 PM [facility] mg/dL [facility] Glucose, P 98 70 - 140 mg/dL 11/04/2017 6:03 PM [facility] Protein, Total, P 7.5 6.3 - 7.9 g/dL 11/04/2017 6:03 P M [facility] Albumin, P 3.9 3.5 - 5.0 g/dL 11/04/2017 6:03 PM [facility] Aspartate 1084 (H) 8 - 43 U/L 11/04/2017 6:23 PM [facility] Aminotransferase ([facility]), P [facility] Alkaline Phosphatase, P 167 (H) 37 - 98 U/L 11/04/2017 6:0 3 PM [facility] Alanine Aminotransferase 1350 (H) 7 - 45 U/L 11/04/2017 6:2 3 PM [facility] (ALT), [facility] Bilirubin, Total, P 2.8 (H) <=1.2 mg/dL 11/04/2017 6:03 PM [facility] Specimen Anatomical Collection Method Collection Time Receive d Time (Source) Location / / Volume Laterality Blood (Blood, 11/04/2017 5:43 PM 11/05/19 18 5:43 Venous) CDT PM CDT Berny Garcia M.D. LAB BLOOD ADD-ON Performing Organization Address City/State/ZIP Code Phon e Number [facility] [address] [place] [address] [facility] (ABNORMAL) CBC with Differential (11/04/2017 5:43 PM CDT) [facility] Method Time Signature Hemoglobin 13.5 11.6 - 11/04/2017 [facility] 15.0 g/dL 5:46 PM [facility] Hematocrit 41.5 35.5 - 11/04/2017 [facility] 44.9 % 5:46 PM [facility] Erythrocytes 5.08 3.92 - 11/04/2017 [facility] 5.13 5:46 PM CDT HEALTH x10(12)/L [facility] MCV 81.7 78.2 - 11/04/2017 [facility] 97.9 fL 5:46 PM CDT [facility] RBC Distrib Width 13.9 12.2 - 11/04/2017 [facility] 16.1 % 5:46 PM CDT [facility] Platelet Count 278 157 - 371 11/04/2017 [facility] x10(9)/L 5:46 PM [facility]T [facility] Leukocytes 4.8 3.4 - 9.6 11/04/2017 [facility] x10(9)/L 5:46 PM CDT [facility] Neutrophils 3.37 1.56 - 11/04/2017 [facility] 6.45 5:46 PM CDT HEALTH x10(9)/L [facility] Lymphocytes 1.11 0.95 - 11/04/2017 [facility] 3.07 5:46 PM CDT HEALTH x10(9)/L [facility] Monocytes 0.23 (L) 0.26 - 11/04/2017 [facility] 0.81 5:46 PM CDT HEALTH x10(9)/L [facility] Eosinophils 0.07 0.03 - 11/04/2017 [facility] 0.48 5:46 PM CDT HEALTH x10(9)/L [facility] Basophils 0.03 0.01 - 11/04/2017 [facility] 0.08 5:46 PM CDT HEALTH x10(9)/L [facility] LAB Specimen Anatomical Collection Method Collection Time Receive d Time (Source) Location / / Volume Laterality Blood (Blood, 11/04/2017 5:43 PM 11/05/19 18 5:43 Venous) CDT PM CDT Berny Garcia M.D. LAB BLOOD ADD-ON Performing Organization Address City/State/ZIP Code Phon e Number [facility] [address] [place] [address] [facility] DX Chest AP or PA [...] Signature Ventricular Rate 76 BPM MUSE ECG/Min [place] Interval 158 ms MUSE QRSD Interval 82 ms MUSE QT Interval 358 ms MUSE QTC Interval 402 ms MUSE P [place] 47 degrees MUSE R [place] 38 degrees MUSE T Wave [place] 33 degrees MUSE Specimen Anatomical Collection Method [...] documented as of this encounter Care Teams Turning Machine Operator Relationship Specialty Start Date End Date Blaire Bundy P.A.-C. PCP - General 02/04/17 04/26/19 documented as of this encounter
--- OUTSIDE RECORDS SUMMARY | 2022-07-08 08:55 | XMS_ITS | Encounter Summary ---
:1985 Author Organization [facility] Address [address] [place] [address] Care Team Providers Name Role Phone Blaire Bundy P.A.-C. 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 [facility] [address] [phone] Social History Tobacco Use Types Packs/Day Years [...] often do you attend jehovah's witness or synagogue More than 4 time s [...]
--- OUTSIDE RECORDS SUMMARY | 2022-07-08 08:55 | XMS_ITS | Encounter Summary ---
:[address] [facility] Address [address] [place] [address] Care Team Providers Name Role Phone Blaire Bundy P.A.-C. Primary Care Provider Reason for Visit Reason Comments Post-op po lap appy 09-08-17 Outpatient (Routine) - Closed Specialty Diagnoses / Procedures Referred By Contact Refer red To Contact General Surgery Diagnoses Appendicitis Acute Par Review Seng Reyna M.D. [facility] Region Procedures GNS POST OP [address] [place] [address] Referral ID Status Reason Start Date Expiration Date Visits Requ ested Visits Authorized [id number] Closed 09/09/2017 03/08/2018 1 1 Encounter Details Date Type Department Care Team Description 09/17/2017 Office Visit Department of General Seng Reyna M. D. Appendectomy Laparoscopic Status Post (Primary Dx); Surgery in [facility] Hermelinda Hansen, Vianney-Marlyn., P.A. [address] [place] [address] Appendicitis Acute [address] [address] Social History Tobacco Use Types [...] How often do you attend islam or worship More than 4 time s [...] Comments Blood Pressure 115/48 09/17/2017 9:04 AM SEISMIC OBSERVER Pulse 84 09/17/2017 9:04 AM SEISMIC OBSERVER Temperature 36.6 ??C (97.9 ??F) 09/17/2017 9:04 AM SEISMIC OBSERVER Respiratory Rate - - Oxygen Saturation - - Inhaled Oxygen Concentration - - Weight - - Height - - Body Mass Index - - documented in this encounter Patient Instructions Patient InstructionsHermelinda Hansen P.A.-C., P.A. - 09/17/2017 9:00 AM SEISMIC OBSERVER Images from the original note were not [...] heals ??? Fever above 101.0??F (38.3??C) ?? [id number] [place] [address]. All rights reserved. This information is not intended as a substitute for professional medical care. Always follow your healthcare professional's instructions. MIC OBSERVER documented in this encounter Progress Notes Hermelinda [...] from the hospital. She has been taking xiqd-qpr-langxyt pain medications as needed since. She is [...] PATHOLOGY SERVICES Patient Name: PUNEET CLAYTON MR#: [id number] Submitting Physician: JAQUAN MONAHAN DO [id number] Specimen #[id number] Performing Lab: [address] [address] Source: Appendix Clinical History/Pre-Op Appendicitis acute [K35.80] Gross Description Labeled appendix consists of a 6.1 cm in length x 1.2 cm in diameter appendix, with attached mesoappendix (2.4 cm). The serosa is gatica-brown with focal areas of white exudate. The mucosa is red-brown hemorrhagic to necrotic. An area of disruption is not grossly identified. Anodizer sections are submitted in cassette A1. KG/ed [...] ongoing postoperative parameters including pain management with [id number] Tylenolor ibuprofen as needed, ongoing incision care, [...] concerns that arise. Hermelinda Hansen P.A.-C., P.A. MIC OBSERVER documented in this encounter Plan of Treatment Scheduled Procedures Name Priority Associated Diagnoses Date/Time COLONOSCOPY Diarrhea documented as of this encounter Visit Diagnoses Diagnosis Appendectomy Laparoscopic Status Post - Primary Appendicitis Acute documented in this encounter Additional Health Concerns Assessment Noted Time PHQ-9 Depression Total Score: 7 04/07/2017 9:39 AM CDT documented as of this encounter Care Teams Appian Bpm Developer Relationship Specialty Start Date End Date Blaire Bundy P.A.-C. PCP - General 02/04/17 04/26/19 documented as of this encounter
--- OUTSIDE RECORDS SUMMARY | 2022-07-08 08:55 | XMS_ITS | Encounter Summary ---
:1985 Author Organization [facility] Address [address] [place] [address] Care Team Providers Name Role Phone Blaire Bundy P.A.-C. Primary Care Provider Reason for Visit Auth/Cert Specialty Diagnoses / Procedures Referred By Contact Refer red To Contact Diagnoses Appendicitis Acute Appendicitis Acute Procedures LAPAROSCOPIC APPENDECTOMY Referral ID Status Reason Start Date Expiration Date Visits Requ ested Visits Authorized [id number] 1 1 Encounter Details Date Type Department Care Team Description 09/08/[address] [facility] MAIN OR Nancy Smith M.D. [address] [facility] [address] [place] [address] [place], [place] [phone] (Wo rk) Anesthesia Record Procedure Summary [...] andoff to the receiving staff during [facility] ch we 1. Identified the [...] D, Time: 161 (created BRENDA RIVERO APRN, GRAY MIXING OPERATOR via procedure documentation); Mask Ventilation: Easy mask; [...] 8 by Abdomen; and Antionette Barnes, R.N. [facility] dermabond; FACUNDO INSTRUCTIONAL LEADER d, Karena g WND ADH NEONAT 2X3.75 [...] How often do you attend advent or jehovah's witness More than 4 time [...] Anesthesia Postprocedure Evaluation - Dimitri Chase, JOSEFA, GRAY MIXING OPERATOR - 09/08/2017 5:50 PM CST Patient: Carol Cooley Procedure Summary Date: 09/08/17 Room / Location: [address] / [facility] OR Anesthesia Start: 160 Anesthesia Stop: 1738 [...] Post Op nausea/vomiting: none Hydration status: euvolemic NICS SYSTEM ENGINEER Anesthesia Procedure Notes - Dimitri Chase APRN, [...] Procedure outcome: successful Airway event: no complications NICS SYSTEM ENGINEER Anesthesia Preprocedure Evaluation - Nancy Smith M.D. [...] patient / legal guardian, or through an ergonomic specialist; patient evaluated and approved for anesthesia / sedation. The use of blood products not discussed Discussed risk of potential decreased hormonal contraceptive efficacy for up to one week after anesthesia due to medication interactions. NICS SYSTEM ENGINEER documented in this encounter Plan of Treatment Scheduled Procedures Name Priority Associated Diagnoses Date/Time COLONOSCOPY Diarrhea documented as of this encounter Procedures Procedure Name Priority Date/Time Associated Comments Diagnosis LDA ANE ENDOTRACHEAL Routine 09/08/2017 4:27 PM R esults for this AIRWAY AVIONICS SYSTEM ENGINEER procedure are i n the results section. documented in this encounter Results LDA ANE ENDOTRACHEAL AIRWAY (09/08/2017 4:27 PM AVIONICS SYSTEM ENGINEER) Narrative Dimitri hCase APRN, CRNA - 09/08/19 18 4:27 PM AVIONICS SYSTEM ENGINEER Dimitri Chase APRN, CRNA ? 09/08/2017 ??4:31 [...] OR Performed by: Dimitri Chase Authorized by: Dmiitri Chase Pre procedure details Pre evaluation for airway management: p rocedure Urgency: elective Preop assessment of probable difficulty : questionable / suspicious difficult airway Sedation level: anesthetized Preoxygenation: bag valve mask Procedure details Mask difficulty assessment: easy mask Final airway type: video laryngoscope Laryngeal Manipulation: no Final best view of glottic structures - Cormack/Lehane Score: grade 2A ETT location: oral VL device: storWyoos CMAC Storz CMAC blade size: D - [...] Site dexamethasone injection Given 09/08/2017 4:07 PM AVIONICS SYSTEM ENGINEER 8 mg (for_DECADRON) As needed, Starting on Wed09/08/17 at 1607, Anesthesia Intra-op HYDROmorphone injection (for_DILAUDID) Given 09/08/2017 4:14 PM AVIONICS SYSTEM ENGINEER 1 mg As needed, moderate pain or score 4-6 of 10, Starting on Wed09/08/17 at 1614, Anesthesia Intra-op ketamine injection (for_KETALAR) Given 09/08/2017 4:06 PM AVIONICS SYSTEM ENGINEER 50 mg As needed, Starting on Wed09/08/17 at 1606, Anesthesia Intra-op ketorolac injection (for_TORADOL) Given 09/08/2017 5:25 PM AVIONICS SYSTEM ENGINEER 30 mg As needed, moderate pain or score 4-6 of 10, Starting on Wed09/08/17 at 1725, Anesthesia Intra-op lactated ringers New Bag 09/08/2017 4:36 PM AVIONICS SYSTEM ENGINEER intravenous, Continuous Infusion: Per Instructions PRN, Starting on Wed09/08/17 at 1636, Anesthesia Intra-op New Bag 09/08/2017 4:06 PM AVIONICS SYSTEM ENGINEER lidocaine (PF) (cardiac) injection Given 09/08/2017 4:11 PM AVIONICS SYSTEM ENGINEER 150 mg intravenous, As needed, Starting on Wed09/08/17 at 1611, Anesthesia Intra-op midazolam (PF) injection (for_VERSED) Given 09/08/2017 4:06 PM AVIONICS SYSTEM ENGINEER 2 mg intravenous, As needed, Starting on Wed09/08/17 at 1606, Anesthesia Intra-op ondansetron (PF) injection (for_ZOFRAN) Given 09/08/2017 5:11 PM AVIONICS SYSTEM ENGINEER 4 mg intravenous, As needed, nausea, vomiting, Starting on Wed09/08/17 at 1711, Anesthesia Intra-op propofol injection (for_DIPRIVAN) Given 09/08/2017 4:11 PM AVIONICS SYSTEM ENGINEER 300 mg intravenous, As needed, Starting on Wed09/08/17 at 1611, Anesthesia Intra-op rocuronium injection (for_ZEMURON) Given 09/08/2017 4:07 PM AVIONICS SYSTEM ENGINEER 80 mg intravenous, As needed, Starting on Wed09/08/17 at 1607, Anesthesia Intra-op sugammadex injection (for_BRIDION) Given 09/08/2017 5:17 PM AVIONICS SYSTEM ENGINEER 290 mg As needed, Starting on Wed09/08/17 at 1717, Anesthesia Intra-op documented in this encounter Additional Health Concerns Assessment Noted Time PHQ-9 Depression Total Score: 7 04/07/2017 9:39 AM CDT documented as of this encounter Care Teams Survey Field Technician Relationship Specialty Start Date End Date Blaire Bundy P.A.-C. PCP - General 02/04/17 04/26/19 documented as of this encounter
--- OUTSIDE RECORDS SUMMARY | 2022-07-08 08:55 | XMS_ITS | Encounter Summary ---
:1985 Author Organization [facility] Address [address] [place] [address] Care Team Providers Name Role Phone Blaire Bundy P.A.-C. Primary Care Provider Reason for Visit Reason Onset Date Comments Post Hospital Follow-up 09/09/2017 [place] 09/09/17 Encounter Details Date Type Department Care Team Description 09/09/2017 Clinical Communication Department of [facility], Barbara Barrett R.N. Follow-up ([place] [id number] 09/09/17) Clinic, in [address] [address] [facility] [phone] [place], [place] (Work) [phone] Social History Tobacco [...] How often do you attend amish or caodaism More than 4 time s [...] feedback: Post hospital near miss assessment: none L SAW OPERATOR Telephone Encounter - Barbara Bang R.N. - 09/09/2017 2:07 PM PANEL SAW OPERATOR Discharge date 09/09/17 at 1230. Reason for hospitalization Admission PRINCIPAL DIAGNOSIS Appendicitis Acute. Follow up scheduled for 09/20/17 @ [address] Reyna (surgical f/u). L SAW OPERATOR documented in this encounter Plan of Treatment Scheduled Procedures Name Priority Associated Diagnoses Date/Time COLONOSCOPY Diarrhea documented as of this encounter Visit Diagnoses Not on filedocumented in this encounter Additional Health Concerns Assessment Noted Time PHQ-9 Depression Total Score: 7 04/07/2017 9:39 AM CDT documented as of this encounter Care Teams Stone Gang Sawyer Relationship Specialty Start Date End Date Blaire Bundy P.A.-C. PCP - General 02/04/17 04/26/19 documented as of this encounter
--- OUTSIDE RECORDS SUMMARY | 2022-07-08 08:55 | XMS_ITS | Encounter Summary ---
:1985 Author Organization [facility] Address [address] [place] [address] Care Team Providers Name Role Phone Blaire Bundy P.A.-C. Primary Care Provider [phone] Reason for Visit Reason Comments Shortness of Breath pt was here Wed. and was dx with pleurisy and is not getting better. c/o SOB, heartburn, nausea and has white in her stool Encounter Details Date Type Department Care Team Description 11/07/2017 Emergency [place] [facility] Dimitri Car, Dil ated Common Bile Duct (Primary Dx); Department M.D. Tenderness Epigastric [address] 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 - 11/07/2017 8:51 PM CDT YOU SHOULD NOT HAVE ANYTHING TO EAT OR DRINK AFTER 12 MIDNIGHT. YOU DO NEED A CATECHIST AFTER THE ERCP PLANNED FOR TOMORROW AFTERNOON TENTATIVELY. AttachmentsThe following attachments cannot be sent through Care Everywhere. About Your ERCP, (Endoscopic Retrograde Cholangiopancreatography) (Syriac) documented in this encounter Medications at Time [...] with hyperactivity disorder presents ambulatory to the [place] [facility] with her friend via private [...] a cholecystectomy done. History provided by: Patient language interpreter used: No REVIEW OF SYSTEMS Constitutional: [...] acute cholecystitis yet. After discussion with Dr.Dave Baekr, Gastroenterology, I was able to make arrangements [...] be NPO after midnight and have a taxi cab driver available to drive her home afternoon. [...] P athologist Signature HCG, <0.5 IU/L 11/07/2017 [facility] Quantitative, 7:25 PM CDT [facility] [place] [facility] Comment: Biotin has been identified by [...] City/State/ZIP Code Phon e Number [facility] [address] [place] [address] [facility] Lactate (11/07/2017 6:48 PM CDT) P athologist Signature Lactate, P 0.8 0.6 - 2.3 11/07/2017 [facility] mmol/L 7:[address] [facility] [employer] [facility] Specimen Anatomical Collection Method Collection Time Receive d Time (Source) Location / / Volume Laterality Blood (Blood, 11/07/2017 6:48 PM 11/08/19 6:51 Venous) CDT PM CDT Dimitri Car M.D. LAB BLOOD NON ADD-ON Performing Organization Address City/State/ZIP Code Phon e Number [facility] [place] [address] [facility] (ABNORMAL) Hepatic Function Panel (11/07/2017 6:48 PM CDT) [facility] Method Time Signature Bilirubin, Total, S 2.0 (H) <=1.2 11/07/2017 [facility] mg/dL 7:14 PM CDT [facility] Bilirubin, Direct, S 1.5 (H) 0.0 - 0.3 11/07/2017 [facility] mg/dL 7:14 PM CDT [facility] Aspartate 775 (H) 8 - 43 11/07/2017 [facility] Aminotransferase U/L 7:26 PM CDT [facility] Alanine 1877 (H) 7 - 45 11/07/2017 [facility] Aminotransferase U/L 7:26 PM CDT [facility] (ALT[facility] Alkaline 275 (H) 37 - 98 11/07/2017 [facility] Phosphatase, S U/L 7:14 PM CDT [facility] Albumin, S 4.0 3.5 - 5.0 11/07/2017 [facility] g/dL 7:14 PM CDT [facility] Protein, Total, S 7.1 6.3 - 7.9 11/07/2017 [facility] g/dL 7:14 PM T [facility] [place] [facility] Specimen Anatomical Collection Method Collection Time Receive d Time (Source) Location / / Volume Laterality Blood (Blood, 11/07/2017 6:48 PM 11/08/19 18 6:51 Venous) CDT PM CDT Dimitri Car M.D. LAB BLOOD ADD-ON Performing Organization Address City/State/ZIP Code Phon e Number [facility] [address] [place] [address], [place] [address] [facility] BMP (Basic Metabolic Panel) (11/07/2017 6:48 PM CDT) P athologist Signature Potassium, P 4.3 3.6 - 5.2 11/07/2017 [facility] mmol/L 7:11 PM T [facility] Sodium, P 139 135 - 145 11/07/2017 [facility] mmol/L 7:11 PM [facility] Chloride, P 100 98 - 107 11/07/2017 [facility] mmol/L 7:11 PM [facility] Bicarbonate, P 25 22 - 29 11/07/2017 [facility] mmol/L 7:11 PM [facility] Anion Gap, P 14 7 - 15 11/07/2017 [facility] 7:11 PM T [facility] BUN (Blood Urea 16 6 - 21 11/07/2017 [facility] Nitrogen), P mg/dL 7:11 PM [facility] Creatinine 0.76 0.59 - 11/07/2017 [facility] 1.04 mg/dL 7:11 PM [facility] eGFR-Black/Afri >90 >=60 11/07/2017 [facility] can [place] mL/min/BSA 7:11 PM [facility] Comment: ----ADDITIONAL INFORMATION---- Estimated GFR calculated using the 2009 CKD_EPI creatinine equation. eGFR Non-Black/ >90 >=60 mL/min/BSA 11/07/2017 7:11 PM [facility] [place] [facility] Comment: ----ADDITIONAL INFORMATION---- Estimated GFR calculated using the 2009 CKD_EPI creatinine equation. Calcium, Total, P 9.5 8.9 - 10.1 mg/dL 11/07/2017 7 :11 PM CDT [facility] Glucose, P 129 70 - 140 mg/dL 11/07/2017 7:11 PM CDT [facility] Specimen Anatomical Collection Method Collection Time Receive d Time (Source) Location / / Volume Laterality Blood (Blood, 11/07/2017 6:48 PM 11/08/19 6:51 Venous) CDT PM CDT Dimitri Car M.D. LAB BLOOD ADD-ON Performing Organization Address City/State/ZIP Code Phon e Number [facility] [place] [address] [facility] Lipase (11/07/2017 6:48 PM CDT) athologist Signature Lipase, P 45 13 - 60 U/L 11/07/2017 [facility] 7:05 PM CDT [facility] Specimen Anatomical Collection Method Collection Time Receive d Time (Source) Location / / Volume Laterality Blood 11/07/2017 6:48 PM 8 6:51 CDT PM CDT Dimitri Car M.D. LAB BLOOD ADD-ON Performing Organization Address City/State/ZIP Code Phon e Number [facility] [place] [address] [facility] CBC with Differential (11/07/2017 6:48 PM CDT) athologist Signature Hemoglobin 13.5 11.6 - 11/07/2017 [facility] 15.0 g/dL 6:54 PM CDT [facility] Hematocrit 42.1 35.5 - 11/07/2017 [facility] 44.9 % 6:54 PM CDT [facility] Erythrocytes 4.97 3.92 - 11/07/2017 [facility] 5.13 6:54 PM CDT [facility]ALTH x10(12)/L [facility]- [facility] [place] [facility] MCV 84.7 78.2 - 11/07/2017 [facility] 97.9 fL 6:54 PM CDT [facility] RBC Distrib Width 14.9 12.2 - 11/07/2017 [facility] 16.1 % 6:54 PM CDT [facility] Platelet Count 294 157 - 371 11/07/2017 [facility] x10(9)/L 6:54 PM CDT [facility] Leukocytes 7.6 3.4 - 9.6 11/07/2017 [facility] x10(9)/L 6:54 PM CDT [facility] Neutrophils 5.64 1.56 - 11/07/2017 [facility] 6.45 6:54 PM CDT [facility] x10(9)/L [facility] Lymphocytes 1.33 0.95 - 11/07/2017 [facility] 3.07 6:54 PM CDT [facility] x10(9)/[facility] [place] [facility] Monocytes 0.50 0.26 - 11/07/2017 [facility] 0.81 6:54 PM CDT [facility] x10(9)/L [facility]- [place] [facility] Eosinophils 0.04 0.03 - 11/07/2017 [facility] 0.48 6:54 PM CDT [facility] x10(9)/L [facility] [place] [facility] Basophils 0.04 0.01 - 11/07/2017 [facility] 0.08 6:54 PM CDT [facility] x10(9)/[facility] Specimen Anatomical Collection Method Collection Time Receive d Time (Source) Location / / Volume Laterality Blood (Blood, 11/07/2017 6:48 PM 11/08/19 18 6:51 Venous) CDT PM CDT Dimitri Car M.D. LAB BLOOD ADD-ON Performing Organization Address City/State/ZIP Code Phon e Number [facility] [address] [facility] [place] [address] [facility] documented in this encounter Visit Diagnoses [...] intravenous, As needed, line care, Starting on [place] 8 at 1909 sodium chloride injection 3 mL 3 mL, intravenous, As needed, line care, Starting on [place] 11/07/17 at 1837, Prior to and following infusion and between multiple consecutive infusions: sodium chloride 0.9 % injection documented in this encounter Additional Health Concerns Assessment Noted Time PHQ-9 Depression Total Score: 7 04/07/2017 9:39 AM CDT documented as of this encounter Care Teams Sanitarian Relationship Specialty Start Date End Date Blaire Bundy P.A.-C. PCP - General 02/04/17 04/26/19 documented as of this encounter
--- OUTSIDE RECORDS SUMMARY | 2022-07-08 08:55 | XMS_ITS | Encounter Summary ---
:1985 Author Organization [facility] Address [address] [place] [address] Care Team Providers Name Role Phone Blaire Bundy P.A.-C. Primary Care Provider Reason for Referral Outpatient (Routine) - Closed Specialty Diagnoses / Procedures Referred By Contact Refer red To Contact General Surgery Diagnoses Appendicitis Acute Par Review Seng Reyna M.D. [facility] Region Procedures GNS POST OP [address] [place] [address] Referral ID Status Reason Start Date Expiration Date Visits Requ ested Visits Authorized [id number] Closed 09/09/2017 03/08/2018 1 1 Scheduling Instructions To see Dr. Monahan 09/15/2016 in [place] . MAKER DEVELOPER Reason for Visit Reason Comments Abdominal Pain [...] Expiration Date Visits Requ ested Visits Authorized [id number] 1 1 Encounter Details Date Type Department Care Team Description 09/08/2017 - Emergency [facility], Natalie Car M.D. [address] [place] [id number] Appendicitis Acute 09/09/2017 [facility] Taryn Helm M.D. [address] [place] [address] (Primary Dx) Center, Third Floor Jaquan Monahan D.O. [address] [place] [address] [place] [address] [address] [place] [address] Social History Tobacco Use Types [...] How often do you attend lutheran or taoism More than 4 time s [...] Comments Blood Pressure 126/63 09/09/2017 10:22 AM FILEMAKER DEVELOPER Pulse 79 09/09/2017 10:22 AM FILEMAKER DEVELOPER Temperature 36.7 ??C (98.1 ??F) 09/09/2017 10:22 AM FILEMAKER DEVELOPER Respiratory Rate 18 09/09/2017 10:22 AM FILEMAKER DEVELOPER Oxygen Saturation 94% 09/09/2017 10:22 AM FILEMAKER DEVELOPER Inhaled Oxygen Concentration - - Weight 145 kg (319 lb 10.7 oz) 09/08/2017 2:13 PM FILEMAKER DEVELOPER Height 157.5 cm (5' 2) 09/08/2017 10:09 AM FILEMAKER DEVELOPER Body Mass Index 58.47 09/08/2017 10:09 AM FILEMAKER DEVELOPER documented in this encounter Discharge Summaries Seng Reyna M.D. - 09/09/2017 9:51 AM CST INPATIENT DISCHARGE SUMMARY BRIEF OVERVIEW Discharge Provider: Taryn Ozuna M.D. Primary Care Providers: Blaire Thornton P.A.-C. (General) [address] [place] [phone] Primary Care Provider Primary Care Provider Other Providers: Admission Date: 09/08/2017 Discharge Date: 09/09/2017 PRINCIPAL DIAGNOSIS Appendicitis Acute SECONDARY DIAGNOSES Principal Problem: Appendicitis Acute Resolved Problems: * No resolved hospital problems. * Operative Procedures: Scheduled (Blank), Completed (Comp) or Canceled (Can) Case IDs Date Procedure Surgeon Location Status [id number] 09/08/17 LAPAROSCOPIC APPENDECTOMY Jaquan Monahan D.O. [facility] OR Comp DISCHARGE DISPOSITION Home [...] Your Medications These medications were sent to [facility] - [address] [address] ?? ciprofloxacin 500 mg tablet ?? metroNIDAZOLE [...] ADMISSION ANESTHESIA FOLLOW-UP CONDITION AT DISCHARGE improved MAKER DEVELOPER documented in this encounter Discharge Instructions AttachmentsThe following attachments cannot be sent through Care Everywhere.Care Following Your Laparoscopy (Sinhala)documented in this encounter Medications at Time of [...] /or at baseline Post Op nausea/vomiting: none MAKER DEVELOPER documented in this encounter H&P Notes Jaquan [...] or fallopian tube. She gives informed consent. MAKER DEVELOPER documented in this encounter Nursing Notes Kiera [...] o-1 Refuses pain medication at this time MAKER DEVELOPER documented in this encounter OR Notes Op Note - Jaquan Monahan D.O. - 09/08/2017 4:35 PM CST FULL OP NOTE Procedure(s): LAPAROSCOPIC APPENDECTOMY Surgeon(s) and Role: * Jaquan Monahan D.O. - Primary Steeplechase Jockey: Lior PerezPBrittaneyNBrittaney; Nichole Allen L.P.N. Anesthesia Type: [...] Appendix PATHOLOGY SERVICES Jaquan Monahan D.O. 09/08/2017 1703 Drains Indwelling Urinary Catheter Double-lumen 16 Fr. (Active) Estimated Blood Loss No blood loss documented. Implants * No implants in log * Jaquan Monahan D.O. MAKER DEVELOPER Brief Op Note - Jaquan Monahan D.O. [...] implants in log * Jaquan Monahan D.O. MAKER DEVELOPER documented in this encounter ED Notes Dimitri [...] for admission. He will contact the nursing cabin equipment supervisor to determine a plan of when [...] was going to talk with the nursing cabin equipment supervisor and the operating room about the [...] accurate and complete. Dimitri Car M.D. 09/08/172138 MAKER DEVELOPER documented in this encounter Plan of Treatment Scheduled Procedures Name Priority Associated Diagnoses Date/Time COLONOSCOPY Diarrhea Scheduled Referrals Name Type Priority Associated Diagnoses Order [facility] Surgery Outpatient Referral Routine Appendicitis Acute Expected: Post Op (clinic) 09/15/2017 (Approximate), Expires: 09/09/2020 documented as of this encounter Procedures Procedure Name Priority Date/Time Associated Comments Diagnosis CBC WITH Routine 09/09/2017 7:05 Results for DIFFERENTIAL, B AM FILEMAKER DEVELOPER this procedu re are in the results section. INCENTIVE Routine 09/08/2017 6:39 SPIROMETRY - RT/RN PM FILEMAKER DEVELOPER INCENTIVE Routine 09/08/2017 6:39 SPIROMETRY - RT/RN PM FILEMAKER DEVELOPER INCENTIVE Routine 09/08/2017 6:39 SPIROMETRY - RT/RN PM FILEMAKER DEVELOPER INCENTIVE Routine 09/08/2017 6:39 SPIROMETRY - RT/RN PM FILEMAKER DEVELOPER INCENTIVE Routine 09/08/2017 6:39 SPIROMETRY - RT/RN PM FILEMAKER DEVELOPER INCENTIVE Routine 09/08/2017 6:39 SPIROMETRY - RT/RN PM FILEMAKER DEVELOPER INCENTIVE Routine 09/08/2017 6:39 SPIROMETRY - RT/RN PM FILEMAKER DEVELOPER INCENTIVE Routine 09/08/2017 6:39 SPIROMETRY - RT/RN PM FILEMAKER DEVELOPER INCENTIVE Routine 09/08/2017 6:39 SPIROMETRY - RT/RN PM FILEMAKER DEVELOPER INCENTIVE Routine 09/08/2017 6:39 SPIROMETRY - RT/RN PM FILEMAKER DEVELOPER INCENTIVE Routine 09/08/2017 6:39 SPIROMETRY - RT/RN PM FILEMAKER DEVELOPER ADULT OXYGEN Routine 09/08/2017 5:43 THERAPY PM FILEMAKER DEVELOPER PATHOLOGY SERVICES Routine 09/08/2017 5:08 Appendicitis Acute Results for PM FILEMAKER DEVELOPER this procedure are in the results section. LAPAROSCOPIC 09/08/2017 4:06 Appendicitis Acute APPENDECTOMY PM FILEMAKER DEVELOPER CT ABDOMEN PELVIS RAD - Semiurgent 09/08/2017 11:53 Re sults for WITH IV CONTRAST (Fast; most ED AM FILEMAKER DEVELOPER this proc edure patients; some are in the inpatients) results section. IRIS MICROSCOPIC, U STAT 09/08/2017 11:03 Resu lts for AM FILEMAKER DEVELOPER this procedure are in the results section. URINALYSIS WITH STAT 09/08/2017 11:03 Results for MICROSCOPIC IF AM FILEMAKER DEVELOPER this procedur e INDICATED, U are in the results section. HEPATIC FUNCTION STAT 09/08/2017 10:50 Results for PANEL, S AM FILEMAKER DEVELOPER this procedure are in the results section. CBC WITH STAT 09/08/2017 10:50 Results for DIFFERENTIAL, B AM FILEMAKER DEVELOPER this procedu re are in the results section. C-REACTIVE PROTEIN STAT 09/08/2017 10:50 Resul ts for (CRP), S/P AM FILEMAKER DEVELOPER this procedure are in the results section. HUMAN CHORIONIC STAT 09/08/2017 10:50 Results for GONADOTROPIN (HCG), AM FILEMAKER DEVELOPER this pro cedure MARCI, are in the results section. LIPASE, S/P STAT 09/08/2017 10:50 Results for AM FILEMAKER DEVELOPER this procedure are in the results section. LACTATE, B/P STAT 09/08/2017 10:50 Results for AM FILEMAKER DEVELOPER this procedure are in the results section. BASIC METABOLIC STAT 09/08/2017 10:50 Results for PANEL, S/P AM FILEMAKER DEVELOPER this procedure are in the results section. documented in this encounter Results (ABNORMAL) CBC with Differential (09/09/2017 7:05 AM FILEMAKER DEVELOPER) [facility] Method Time Signature Hemoglobin 11.1 (L) 11.6 - 09/09/2017 [facility] 15.0 g/dL 7:11 AM [employer] [facility] Hematocrit 34.8 (L) 35.5 - 09/09/2017 [facility] 44.9 % 7:11 AM [facility] LAB Erythrocytes 4.18 3.92 - 09/09/2017 [facility] 5.13 7:11 AM [employer] x10(12)/L [employer] [facility] MCV 83.3 78.2 - 09/09/2017 [facility] 97.9 fL 7:11 AM [facility] RBC Distrib Width 13.6 12.2 - 09/09/2017 [facility] 16.1 % 7:11 AM [facility] Platelet Count 263 157 - 371 09/09/2017 [facility] x10(9)/L 7:11 AM [facility] LAB Leukocytes 11.8 (H) 3.4 - 9.6 09/09/2017 [facility] x10(9)/L 7:11 AM [facility] LAB Neutrophils 10.54 (H) 1.56 - 09/09/2017 [facility] 6.45 7:11 AM [facility] x10(9)/L SYSTEM- [facility] [place] [facility] Lymphocytes 0.65 (L) 0.95 - 09/09/2017 [facility] 3.07 7:11 AM [facility] x10(9)/L SYSTEM- [facility] [place] [facility] Monocytes 0.57 0.26 - 09/09/2017 [facility] 0.81 7:11 AM [facility] x10(9)/L [facility] [place] [facility] Eosinophils 0.01 (L) 0.03 - 09/09/2017 [facility] 0.48 7:11 AM [facility] x10(9)/L [facility] Basophils 0.01 0.01 - 09/09/2017 [facility] 0.08 7:11 AM [facility] x10(9)/L SYSTEM- [place] [facility] Specimen Anatomical Collection Method Collection Time Receive d Time (Source) Location / / Volume Laterality Blood (Blood, 09/09/2017 7:05 AM 09/09/19 7:08 Venous) FILEMAKER DEVELOPER AM FILEMAKER DEVELOPER Jaquan Monahan D.O. LAB BLOOD ADD-ON Performing Organization Address City/State/ZIP Code Phon e Number [facility] [address] [place] [address] [facility] Pathology Services (09/08/2017 5:08 PM FILEMAKER DEVELOPER) Component Value Ref Test Analysis Performed At [facility] Range Method Time Signature PATHOLOGY Patient Name: PUNEET CLAYTON LUZ [facility] MR#: [id number] LAUREL Submitting Physician: JAQUAN MONAHAN DO [id number] Specimen #[id number] Performing Lab: ??[facility] ? [address] [facility] [address] Source: Appendix Clinical History/Pre-Op Appendicitis acute [K35.80] Gross Description Labeled appendix consists of a 6.1 cm in length x 1.2 cm in diameter appendix, with attached mesoappendix ( 2.4 cm). ??The serosa is gatica-brown with focal areas of white exudate. ??The muco sa is red-brown hemorrhagic to necrotic. ??An area of disruption is not grossly id entified. ??Net C Developer sections are submitted in cassette A1. KG/ed ?? Diagnosis Appendix, appendectomy: ACUTE APPENDICITIS WITH PERIAPPENDICITIS. Electronically Signed By JANNET HERNÁNDEZ MD - 09/10/2017 ed/09/10/2017 Specimen (Source) Anatomical Collection Method Collection Time Re ceived Time Location / / Volume Laterality Tissue (Appendix) 09/08/2017 5:08 PM FILEMAKER DEVELOPER Comment: Acute appendicitis Jaquan Monahan D.O. LAB SURG PATH ORDERABLES Performing Organization Address City/State/ZIP Code Phon e Number [facility] [address] [place] [address] CT Abdomen Pelvis with IV Contrast (09/08/2017 11:53 AM FILEMAKER DEVELOPER) Anatomical Region Laterality Modality Abdomen, Pelvis N/A Computed Tomography Specimen (Source) Anatomical Collection Method Collection Time Re ceived Time Location / / Volume Laterality 09/08/2017 12:00 PM FILEMAKER DEVELOPER Impressions 09/08/2017 12:07 PM FILEMAKER DEVELOPER IMPRESSION: 1. ??Acute uncomplicated appendicitis. 2. ??Hepatic steatosis. 3. ??Prominent follicle right ovary. Narrative 09/08/2017 12:07 PM FILEMAKER DEVELOPER EXAM: CT ABDOMEN PELVIS WITH IV CONTRAST [...] PROCEDURES (ABNORMAL) Desmond Solo (09/08/2017 11:03 AM FILEMAKER DEVELOPER) Analysis Performed At [facility] Time Signature White Blood 11-20 (A) /hpf 09/08/2017 [facility] Cells 11:13 AM [facility]- [facility] [place] [facility] Comment: ----REFERENCE VALUE---- Males: 0-3 Females: 0-10 Unknown: 0-10 Red Blood Cells Occ-2 0 - 2 /hpf 09/08/2017 11:13 AM [facility] [place] [facility] Mucus Present /hpf 09/08/2017 11:13 AM [facility] [place] [facility] Squamous Epithelial Occ-3 /hpf 09/08/2017 11:13 AM [facility] Bacteria Present (A) None Seen 09/08/2017 11:13 AM [facility] [place] [facility] Specimen Anatomical Collection Method Collection Time Receive d Time (Source) Location / / Volume Laterality Urine 09/08/2017 11:03 09/08/2017 AM FILEMAKER DEVELOPER 11:05 AM FILEMAKER DEVELOPER Dimitri Car M.D. LAB URINE ORDERABLES Performing Organization Address City/State/ZIP Code Phon e Number [facility] [address] [place] [address] [facility] (ABNORMAL) Urinalysis with Microscopic if Indicated (09/08/2017 11:03 AM FILEMAKER DEVELOPER) Analysis Performed At Patho logist Time Signature Source Midstream 09/08/2017 [facility] 11:13 AM [facility] [place] [facility] Clarity Slightly Clear 09/08/2017 [facility] Cloudy (A) 11:13 AM [facility] [place] [facility] Color Yellow 09/08/2017 [facility] 11:13 AM [facility] [place] [facility] Comment: ----REFERENCE VALUE---- Colorless Yellow Philomena Blood Negative Negative 09/08/2017 11:13 AM [facility] [place] [facility] Nitrite Positive (A) Negative 09/08/2017 11:13 AM [facility] [place] [facility] Leukocyte Esterase Moderate (A) Negative 09/08/2017 11:1 3 AM [facility] [place] [facility] Protein, U Trace mg/dL 09/08/2017 11:[address] [facility] [place] [facility] Comment: ----REFERENCE VALUE---- Negative Trace Glucose Negative Negative mg/dL 09/08/2017 11:13 AM [facility] [place] [facility] Ketone Negative Negative mg/dL 09/08/2017 11:13 AM [facility] [place] [facility] Bilirubin Negative Negative 09/08/2017 11:13 AM [facility] [place] [facility] pH 6.0 5.0 - 8.0 09/08/2017 11:13 AM [facility] Specific [place] 1.015 1.001 - 1.035 09/08/2017 11:13 AM [facility] Urobilinogen 0.2 0.2 - 1.0 09/08/2017 11:13 AM [facility] [place] [facility] Specimen Anatomical Collection Method Collection Time Receive d Time (Source) Location / / Volume Laterality Urine (Urine, 09/08/2017 11:03 09/08/2017 Clean Catch) AM FILEMAKER DEVELOPER 11:05 AM FILEMAKER DEVELOPER Dimitri Car M.D. LAB URINE ORDERABLES Performing Organization Address City/[facility]/ZIP Code Phon e Number [address] [place] [address] [place] [facility] (ABNORMAL) CRP (C-Reactive Protein) (09/08/2017 10:50 AM FILEMAKER DEVELOPER) Analysis Performed At Patho logist Time Signature C-Reactive 115.8 (H) <=8.0 mg/L 09/08/2017 [facility] Protein (CRP), 11:12 AM [facility] Specimen Anatomical Collection Method Collection Time Receive d Time (Source) Location / / Volume Laterality Blood (Blood, 09/08/2017 10:50 09/08/2017 Venous) AM FILEMAKER DEVELOPER 10:52 AM FILEMAKER DEVELOPER Dimitri Car M.D. LAB BLOOD ADD-ON Performing Organization Address City/State/ZIP Code Phon e Number [address] [place] [address] [place] [facility] hCG (Human Chorionic Gonadotropin), Quantitative, (09/08/2017 10:50 AM FILEMAKER DEVELOPER) P athologist Signature HCG, <0.5 IU/L 09/08/2017 [facility] Quantitative, 11:36 AM [facility] - , S [facility] [place] [facility] Comment: Biotin has been identified by [...] Blood (Blood, 09/08/2017 10:50 09/08/2017 Venous) AM FILEMAKER DEVELOPER 10:52 AM FILEMAKER DEVELOPER Dimitri Car M.D. LAB BLOOD ADD-ON Performing Organization Address City/State/ZIP Code Phon e Number [facility] [address] [place] [address] [facility] Lipase (09/08/2017 10:50 AM FILEMAKER DEVELOPER) P athologist Signature Lipase, P 22 13 - 60 U/L 09/08/2017 [facility] 11:13 AM [facility] LAB Specimen Anatomical Collection Method Collection Time Receive d Time (Source) Location / / Volume Laterality Blood (Blood, 09/08/2017 10:50 09/08/2017 Venous) AM FILEMAKER DEVELOPER 10:52 AM FILEMAKER DEVELOPER Dimitri Car M.D. LAB BLOOD ADD-ON Performing Organization Address City/State/ZIP Code Phon e Number [facility] [address] [place] [address] [facility] Lactate (09/08/2017 10:50 AM FILEMAKER DEVELOPER) P athologist Signature Lactate, P 0.7 0.6 - 2.3 09/08/2017 [facility] mmol/L 11:11 AM [facility] LAB Specimen Anatomical Collection Method Collection Time Receive d Time (Source) Location / / Volume Laterality Blood (Blood, 09/08/2017 10:50 09/08/2017 Venous) AM FILEMAKER DEVELOPER 10:52 AM FILEMAKER DEVELOPER Dimitri Car M.D. LAB BLOOD NON ADD-ON Performing Organization Address City/State/ZIP Code Phon e Number [facility] [address] [place] [address] [facility] (ABNORMAL) Hepatic Function Panel (09/08/2017 10:50 AM FILEMAKER DEVELOPER) Patholo gist Method Time Signature Bilirubin, Total, S 1.1 <=1.2 09/08/2017 [facility] mg/dL 11:12 AM [facility] Bilirubin, Direct, S 0.2 0.0 - 0.3 09/08/2017 [facility] mg/dL 11:12 AM [facility] Aspartate 32 8 - 43 09/08/2017 [facility] Aminotransferase U/L 11:12 AM [facility] Alanine 83 (H) 7 - 45 09/08/2017 [facility] Aminotransferase U/L 11:12 AM [facility] Alkaline 101 (H) 37 - 98 09/08/2017 [facility] Phosphatase, S U/L 11:12 AM [facility] Albumin, S 3.9 3.5 - 5.0 09/08/2017 [facility] g/dL 11:12 AM [facility] Protein, Total, S 6.9 6.3 - 7.9 09/08/2017 [facility] g/dL 11:12 AM [facility] Specimen Anatomical Collection Method Collection Time Receive d Time (Source) Location / / Volume Laterality Blood (Blood, 09/08/2017 10:50 09/08/2017 Venous) AM FILEMAKER DEVELOPER 10:52 AM FILEMAKER DEVELOPER Dimitri Car M.D. LAB BLOOD ADD-ON Performing Organization Address City/State/ZIP Code Phon e Number [facility] [address] [place] [address] [place] [facility] BMP (Basic Metabolic Panel) (09/08/2017 10:50 AM FILEMAKER DEVELOPER) P athologist Signature Potassium, P 4.2 3.6 - 5.2 09/08/2017 [facility] mmol/L 11:13 AM [facility] Sodium, P 135 135 - 145 09/08/2017 [facility] mmol/L 11:13 AM [facility] Chloride, P 99 98 - 107 09/08/2017 [facility] mmol/L 11:13 AM [facility] Bicarbonate, P 22 22 - 29 09/08/2017 [facility] mmol/L 11:13 AM [facility] Anion Gap, P 14 7 - 15 09/08/2017 [facility] 11:13 AM [facility] BUN (Blood Urea 7 6 - 21 09/08/2017 [facility] Nitrogen), P mg/dL 11:13 AM [facility] LAB Creatinine 0.62 0.59 - 09/08/2017 [facility] 1.04 mg/dL 11:13 AM [facility] LAB eGFR-Black/Afri >90 >=60 09/08/2017 [facility] can Thai mL/min/BSA 11:13 AM [facility] Comment: ----ADDITIONAL INFORMATION---- Estimated GFR calculated using the 2009 CKD_EPI creatinine equation. eGFR Non-Black/ >90 >=60 mL/min/BSA 09/08/2017 11:13 AM [facility] Thai [facility] Comment: ----ADDITIONAL INFORMATION---- Estimated GFR calculated using the 2009 CKD_EPI creatinine equation. Calcium, Total, P 9.1 8.9 - 10.1 mg/dL 09/08/2017 1 1:13 AM [facility] Glucose, P 104 70 - 140 mg/dL 09/08/2017 11:13 AM [facility] Specimen Anatomical Collection Method Collection Time Receive d Time (Source) Location / / Volume Laterality Blood (Blood, 09/08/2017 10:50 09/08/2017 Venous) AM [facility] 10:52 AM [facility] Dimitri Car M.D. LAB BLOOD ADD-ON Performing Organization Address City/State/ZIP Code Phon e Number [facility] [address] [place] [address] [place] [facility] (ABNORMAL) CBC with Differential (09/08/2017 10:50 AM [facility]) [facility] Method Time Signature Hemoglobin 12.3 11.6 - 09/08/2017 [facility] 15.0 g/dL 10:56 AM [facility] LAB Hematocrit 37.8 35.5 - 09/08/2017 [facility] 44.9 % 10:56 AM [facility] LAB Erythrocytes 4.60 3.92 - 09/08/2017 [facility] 5.13 10:56 AM [facility]ALTH x10(12)/L [facility] LAB MCV 82.2 78.2 - 09/08/2017 [facility] 97.9 fL 10:56 AM [facility] [place] [facility] RBC Distrib Width 13.9 12.2 - 09/08/2017 [facility] 16.1 % 10:56 AM [facility] [place] [facility] Platelet Count 293 157 - 371 09/08/2017 [facility] x10(9)/L 10:56 AM [facility] LAB Leukocytes 15.8 (H) 3.4 - 9.6 09/08/2017 [facility] x10(9)/L 10:56 AM [facility] LAB Neutrophils 13.48 (H) 1.56 - 09/08/2017 [facility] 6.45 10:56 AM [facility] x10(9)/L [facility] Lymphocytes 1.35 0.95 - 09/08/2017 [facility] 3.07 10:56 AM [facility] x10(9)/L [facility] LAB Monocytes 0.87 (H) 0.26 - 09/08/2017 [facility] 0.81 10:56 AM [facility] x10(9)/L [facility] LAB Eosinophils 0.04 0.03 - 09/08/2017 [facility] 0.48 10:56 AM [facility] x10(9)/L [facility] LAB Basophils 0.03 0.01 - 09/08/2017 [facility] 0.08 10:56 AM [facility] x10(9)/L [facility] Specimen Anatomical Collection Method Collection Time Receive d Time (Source) Location / / Volume Laterality Blood (Blood, 09/08/2017 10:50 09/08/2017 Venous) AM FILEMAKER DEVELOPER 10:52 AM FILEMAKER DEVELOPER Dimitri Car M.D. LAB BLOOD ADD-ON Performing Organization Address City/State/ZIP Code Phon e Number [facility] [address] [place] [address] [place] [facility] documented in this encounter Visit Diagnoses Diagnosis Appendicitis Acute - Primary Appendicitis Acute documented in this encounter Administered Medications Inactive Administered Medications - up to 3 most recent administrations Medication Order MAR Action Action Date Dose Rate Site ciprofloxacin in D5W IVPB New Bag 09/08/2017 12:29 PM 400 mg 2 00 mL/hr Right Hand 400 mg (for_CIPRO) FILEMAKER DEVELOPER 400 mg, intravenous, at 200 mL/hr, Administer over 60 Minutes, Once, On Wed09/08/17 at 1216, For 1 dose, premix bag, Drug Monitoring Program: Pharmacist to adjust medication order based on comorbities and indication., Indications: Appendicitis ciprofloxacin in D5W IVPB New Bag 09/09/2017 12:23 AM 400 mg 2 00 mL/hr Right Hand 400 mg (for_CIPRO) FILEMAKER DEVELOPER 400 mg, intravenous, at 200 mL/hr, Administer over 60 Minutes, Once, On Bryanna 09/09/17 at 0030, For 1 dose, Start within 12 hours of last dose. premix bag, Drug Monitoring Program: Pharmacist to adjust medication order based on comorbities and indication., Indications: Prophylaxis, surgical heparin (porcine) 5,000 Given 09/08/2017 2:43 PM FILEMAKER DEVELOPER 5,000 Units Abdominal Tissue unit/0.5 mL injection - ADS Override Pull Starting on Wed09/08/17 at 1426, For 1 dose, Created by cabinet override heparin (porcine) Given 09/09/2017 9:14 AM FILEMAKER DEVELOPER 7,500 Units Left Lower Abdomen injection 7,500 Units 7,500 Units, subcutaneous, 3 times daily, First dose on Bryanna 09/09/17 at 0145 Given 09/09/2017 1:48 AM FILEMAKER DEVELOPER 7,500 Units Right Lower Abdomen HYDROmorphone injection 0.5 mg (for_DILA UDID) Given 09/08/2017 2:40 PM FILEMAKER DEVELOPER 0.5 mg 0.5 mg, intravenous, Every 1 hour PRN, moderate pain or score 4-6 of 10, Starting on Wed09/08/17 at 1253 iohexol 350 mg iodine/mL solution Given 09/08/2017 11:54 AM FILEMAKER DEVELOPER 171 mL Right Hand 171 mL (for_OMNIPAQUE) 171 mL, intravenous, Once in imaging, contrast, Starting on Wed09/08/17 at 1059, For 1 dose ketorolac injection 30 mg Given 09/08/2017 10:57 AM FILEMAKER DEVELOPER 30 mg Right Hand (for_TORADOL) 30 mg, intravenous, Once, On Wed09/08/17 at 1040, For 1 dose, Adult IV push rate: Over 15 seconds. Peds IV push rate: Over 1 minute. 60 mg dose only for IM, not recommended for IV., Drug Monitoring Program: Pharmacist to adjust medication order based on comorbities and indication. lactated ringers New Bag 09/08/2017 2:50 PM FILEMAKER DEVELOPER 20 mL/hr 20 mL/hr 20 mL/hr, intravenous, Continuous, Starting on Wed09/08/17 at 1430, Pre-Op lactated ringers Rate/Dose Verify 09/08/2017 10:00 PM FILEMAKER DEVELOPER 75 mL/hr 75 mL/hr 75 mL/hr, intravenous, Continuous, Starting on Wed09/08/17 at 2000 New Bag 09/08/2017 7:55 PM FILEMAKER DEVELOPER 75 mL/hr 75 mL/hr metroNIDAZOLE in NaCl (iso-osm) New Bag 09/08/2017 1:39 PM FILEMAKER DEVELOPER 500 mg 200 mL/hr IVPB 500 mg (for_FLAGYL) 500 mg, intravenous, at 200 mL/hr, Administer over 30 Minutes, Once, On Wed09/08/17 at 1210, For 1 dose, Indications: Appendicitis metroNIDAZOLE in NaCl (iso-osm) New Bag 09/09/2017 5:36 AM FILEMAKER DEVELOPER 500 mg 200 mL/hr IVPB 500 mg (for_FLAGYL) 500 mg, intravenous, at 200 mL/hr, Administer over 30 Minutes, Every 8 hours, First dose on Wed09/08/17 at 2145, For 2 doses, Start within 8 hours of last dose., Indications: Prophylaxis, surgical New Bag 09/08/2017 9:25 PM FILEMAKER DEVELOPER 500 mg 200 mL/hr morphine injection 4 mg Given 09/08/2017 10:57 AM FILEMAKER DEVELOPER 4 mg 4 mg, intravenous, Every 20 min PRN, moderate pain or score 4-6 of 10, severe pain or score 7-10 of 10, Starting on Wed09/08/17 at 1038, For 3 doses NaCl 0.9 % bolus 1,000 New Bag 09/08/2017 10:58 AM 1,000 mL 2000 mL/hr Right Hand mL FILEMAKER DEVELOPER 1,000 mL, intravenous, at 2,000 mL/hr, Administer over 0.5 Hours, Once, On Wed09/08/17 at 1040, For 1 dose NaCl 0.9% infusion New Bag 09/08/2017 11:27 AM 1,000 mL/hr 1000 mL/hr Right Aiken nd 1,000 mL/hr, FILEMAKER DEVELOPER intravenous, Continuous, Starting on Wed09/08/17 at 1040, For Hydration ondansetron (PF) injection 4 mg (for_ZOF RAN) Given 09/08/2017 2:51 PM FILEMAKER DEVELOPER 4 mg 4 mg, intravenous, Every 20 min PRN, nausea, vomiting, Starting on Wed09/08/17 at 1038, For 2 doses Given 09/08/2017 10:57 AM FILEMAKER DEVELOPER 4 mg ondansetron (PF) injection 4 mg (for_ZOF RAN) 4 mg, intravenous, Every 6 hours PRN, na usea, vomiting, Starting on Wed09/08/17 at 1254 oxyCODONE IR tablet 5 mg (for_ROXICODONE ) Given 09/09/2017 5:45 AM FILEMAKER DEVELOPER 5 mg 5 mg, oral, Every 4 hours PRN, mild pain or score 1-3 of 10, Starting on Wed09/08/17 at 1839 Given 09/09/2017 12:40 AM FILEMAKER DEVELOPER 5 mg sodium chloride 0.9 % injection 10 mL 10 mL, intravenous, As needed, line care, Starting on Wed09/08/17 at 1037, Peripheral Intravenous Catheter and Rapid Infusion Cat heter, prior to blood sampling, post blood transfusion or post blood samplin g sodium chloride 0.9 % injection 10 Given 09/08/2017 11:55 AM FILEMAKER DEVELOPER 10 mL Right Hand mL 10 mL, [...] % injection 80 Given 09/08/2017 11:09 AM FILEMAKER DEVELOPER 80 mL Right Hand mL 80 mL, intravenous, Once, On Wed09/08/17 at 1109, For 1 dose documented in this encounter Active and Recently Administered Medications Times are shown in FILEMAKER DEVELOPER. Scheduled Medication Order 09/07/2017 09/08/2017 09/09/2017 ciprofloxacin [...] Provider, Automatic - Reason: Patient not available)1811 ([facility] Unhold - Provider: Transfer Provider, Automatic)2100 (Not [...] available)1440 (Given - Provider: Zelda Vilchis R.N.)1811 ([facility] Unhold - Provider: Transfer Provider, Automatic) [...] PF 50 mL 100 mL injection ([facility]) 1717 (Given - Provider: Jaquan Monahan D.O.) As needed, Starting on Wed09/08/17 at 1717, Intra-Op morphine injection 4 mg 1057 (Given - Pr ovider: Keiry Perales R.N.)1408 ([facility] Hold - Provider: Transfer Provider, Automatic - Reason: Patient not available)181 ([facility] Unhold - Provider: Transfer Provider, Automatic) [...] 1057 (Given - Provider: Keiry Perales R.N.)1408 ([facility] Hold - Provider: Transfer Provider, Automatic - Reason: Patient not available)1451 (Given - Provider: Zelda Vilchis R.N.)181 ([facility] Unhold - Provider: Transfer Provider, Automatic) 4 mg, intravenous, Every 20 min PRN, [place], vomiting, Starting on Wed09/08/17 at 1038, For 2 doses ondansetron (PF) injection 4 mg (for_ZOFRAN) 1408 ([facility] Hold - Provider: Transfer Provider, Automatic - Reason: Patient not available)1448 (Dose Auto Held)181 ([facility] Unhold - Provider: Transfer Provider, Automatic) [...] 10 mL (COMPLETED) 1155 (Given - Provider: Ruben KrishnamurthyTBrittaney(R)(CT), R.TBrittaney(R)) 10 mL, intravenous, Once in imaging, [...] documented as of this encounter Care Teams Donor Support Technician Relationship Specialty Start Date End Date Blaire Bundy P.A.-C. PCP - General 02/04/17 04/26/19 documented as of this encounter
--- OUTSIDE RECORDS SUMMARY | 2022-07-08 08:55 | XMS_ITS | Encounter Summary ---
:1985 Author Organization [facility] Address [address] [place] [address] Care Team Providers Name Role Phone Blaire Bundy P.A.-C. Primary Care Provider Encounter Details Date Type Department Care Team Description 09/09/2017 Orders Only Department of General Lydia Crowley, Surgery in [address] [address] [place] [address] [facility] [phone] Social History Tobacco Use Types Packs/Day Years [...] How often do you attend buddhist or islam More than 4 time s [...] as of this encounter Care Teams Field Court Researcher Relationship Specialty Start Date End Date Blaire Bundy P.A.-C. PCP - General 02/04/17 04/26/19 documented as of this encounter
--- OUTSIDE RECORDS SUMMARY | 2022-07-08 08:56 | XMS_ITS | Encounter Summary ---
:1985 Author Organization [facility] Address [address] [place] [address] Care Team Providers Name Role Phone Catracho Bundy P.A.-C. Primary Care Provider Encounter Details Date Type Department Care Team Description 02/11/2017 Hospital Encounter [facility] Marisol Galaviz, SUZI N, C.N.P. [address] [place], [place] [address] (Wo rk) Social History [...] How often do you attend temple or orthodoxy More than 4 time s [...] given to the patient: Patient Education Materials: Mirror Framer Healthy Eating Habits During Mirror Framer Healthy Eating Habits During Its important to [...] water with a slice of lemon or [place] tribe (these can also help ease an [...] light tuna, salmon, pollock, and catfish ?? [phone] [place] [address]. All rights reserved. This information is not intended as a substitute for professional medical care. Always follow your healthcare professional's instructions. This document has images extracted. Please consider using [employer] for all your patient education needs. Source: [facility] POWERCHART Document Id: [id number] documented in this encounter Miscellaneous Notes Miscellaneous - Marisol Marques, C.N.P., R.N. - 02/11/2017 10:38 AM CDT Ambulatory Discharge Medication List [facility] [address] [place], [place] [id number] Visit Information Name: PUNEET CLAYTON [facility] Number: [id number] Current Date: 02/11/2017 10:38:54 Attending Provider: MARISOL MARQUES CNP, tax examiner Provider: CATRACHO NAZARIO PA-C PUNEET CLAYTON has [...] RN Signed On:11-FEB-2017 10:38:51 Additional Information: Source: [facility] POWERCHART Document Id: [id number] Miscellaneous - Marisol Marques C.N.P., R.N. - 02/11/2017 10:38 AM CDT Ambulatory Patient Summary [facility] [address] [facility], [address] [place], [place] [id number] Visit Information Name: PUNEET CLAYTON [facility] Number: [id number] Current Date: 02/11/2017 10:38:55 Physicians Attending Provider: MARISOL MARQUES CNP, tax examiner Provider: CATRACHO NAZARIO PA-C PUNEET CLAYTON has [...] water with a slice of lemon or [place] tribe (these can also help ease an [...] light tuna, salmon, pollock, and catfish ?? [phone] Formerly [facility], [address] [place] [address], [place] [address]. All rights reserved. This information is not [...] you dont have one. Go to [email or web address] and click on Create Your Account. Then, follow the directions to complete the online form. Youll be asked for your [facility] number which you can find at the top of this document. Your Goals/Additional instructions: This document has images extracted. Please consider using [employer] for all your patient education needs. Source: [facility] POWERCHART Document Id: [id number] Miscellaneous - Cleopatra Laguerre L.P.N. - 02/11/2017 10:23 AM CDT Adult Car Washer Intake/History Adult Car Washer Intake/History Entered On: 02/11/2017 10:26 CDT Performed [...] Information Given By : Patient Languages : Welsh Is Patient Female and 13-50 no hysterectomy [...] LAGUERRE LPN - 02/11/2017 10:23 CDT Source: [facility] POWERCHART Document Id: [id number] CDT!41 documented in this encounter Plan of Treatment Scheduled Procedures Name Priority Associated Diagnoses Date/Time COLONOSCOPY Diarrhea documented as of this encounter Visit Diagnoses Not on filedocumented in this encounter Additional Health Concerns Assessment Noted Time PHQ-9 Depression Total Score: 11 12/13/2014 9:50 AM CD T documented as of this encounter Care Teams Product Support Consultant Relationship Specialty Start Date End Date Catracho Bundy P.A.-C. PCP - General 02/04/17 04/26/19 documented as of this encounter
--- OUTSIDE RECORDS SUMMARY | 2022-07-08 08:56 | XMS_ITS | Encounter Summary ---
:1985 Author Organization [facility] Address [address] [place] [address] Care Team Providers Name Role Phone Catracho Bundy P.A.-C. Primary Care Provider Encounter Details Date Type Department Care Team Description 06/15/2017 Hospital Encounter [facility] Leonora Melchor, Maureen TARIQ, C.N.P. [address] [place], [place] [address] (Wo [...] How often do you attend evangelical or zoroastrianism More than 4 time s [...] 06/15/2017 10:26 AM CDT Ambulatory Patient Summary [address] [id number] Visit Information Name: COOLEY PUNEET ALVARADO [facility] Number: [id number] Current Date: 06/15/2017 10:26:41 Physicians Attending Provider: LEONORA VILLASEÑOR R.N. [facility] Primary Care Provider: CATRACHO NAZARIO PA-C PUNEET [...] if you dont have one. Go to [email or web address] and click on Create Your Account. Then, follow the directions to complete the online form. Youll be asked for your [facility] number which you can find at the top of this document. Your Goals/Additional instructions: Source: [facility] POWERCHART Document Id: [id number] Miscellaneous - Leonora Villaseñor R.N., WHNP-BC - 06/15/2017 10:26 AM CDT Ambulatory Discharge Medication List [address] [id number] Visit Information Name: PUNEET COOLEY [facility] Number: [id number] Current Date: 06/15/2017 10:26:41 Attending [...] emergency. Electronically Signed By: LEONORA VILLASEÑOR R.N. [facility] Signed On:15-JUN-2017 10:26:39 Additional Information: Source: [facility] POWERCHART Document Id: [id number] Miscellaneous - Roosevelt Rodriges, L.P.N. - 06/15/2017 10:24 AM CDT Adult Caustic Mixer Intake/History Adult Caustic Mixer Intake/History Entered On: 06/15/2017 10:27 CDT Performed On: 06/15/2017 10:24 CDT by ROOSEVELT RODRIGES PERSONAL SERVICE REPRESENTATIVE Intake Chief Complaint : OB check Temperature [...] Information Given By : Patient Languages : Persian Is Patient Female and 13-50 no hysterectomy [...] CARRILLOI Apollo REID 06/15/2017 10:24 CDT Source: [employer] Document Id: [id number] CDT!40 documented in this encounter Plan of Treatment Scheduled Procedures Name Priority Associated Diagnoses Date/Time COLONOSCOPY Diarrhea documented as of this encounter Visit Diagnoses Not on filedocumented in this encounter Additional Health Concerns Assessment Noted Time PHQ-9 Depression Total Score: 7 04/07/2017 9:39 AM CDT documented as of this encounter Care Teams Hydraulic Blocker Relationship Specialty Start Date End Date Catracho Bundy P.A.-C. PCP - General 02/04/17 04/26/19 documented as of this encounter
--- OUTSIDE RECORDS SUMMARY | 2022-07-08 08:56 | XMS_ITS | Encounter Summary ---
:1985 Author Organization [facility] Address [address] [place] [address] Care Team Providers Name Role Phone Unavailable Primary Care Provider Unavailable Encounter Details Date Type Department Care Team Description 01/08/2017 [facility] [address] [place] [phone] (Wo rk) Social History Tobacco Use [...] How often do you attend sikhism or orthodoxy More than 4 time s [...] 13:39:18 CDT From: LEONORA HOLMAN MD To: [place] Family Medicine Nurse Amarilys; Sent: 01/08/2017 13:39:18 CDT Subject: RE: *General Message Looks okay. Just needs to follow up with OB next week. ThanksLeonora From: CRAIG TOLENTINO LPN ([place] Family Medicine Nurse Panda) To: LEONORA HOLMAN MD; Sent: 01/08/2017 08:58:35 CDT Subject: *General Message Patient came in for BP check and was seen by you yesterday in the clinic. Today's BP 139/78 Pulse-100 137/75 Pulse-91 Please advise. Thank you. Source: [facility] POWERCHART Document Id: [id number] Electronically signed by Conversion, [facility] Senior Php Developer [id number] at 02/01/2017 11:08 PM CDT Miscellaneous - [...] TOLENTINO LPN - 01/08/2017 8:53 CDT Source: Sincerely Document Id: [id number] CDT!11 Miscellaneous - Craig Tolentino, L.P.N. - [...] TOLENTINO LPN - 01/08/2017 8:50 CDT Source: Sincerely Document Id: [id number] CDT!9 documented in this encounter Plan of Treatment Scheduled Procedures Name Priority Associated Diagnoses Date/Time COLONOSCOPY Diarrhea documented as of this encounter Visit Diagnoses Not on filedocumented in this encounter Additional Health Concerns Assessment Noted Time PHQ-9 Depression Total Score: 11 12/13/2014 9:50 AM CD T documented as of this encounter
--- OUTSIDE RECORDS SUMMARY | 2022-07-08 08:56 | XMS_ITS | Encounter Summary ---
:1985 Author Organization [facility] Address [address] [place] [address] Care Team Providers Name Role Phone Catracho Bundy P.A.-C. Primary Care Provider [phone] Encounter Details Date Type Department Care Team Description 02/22/2017 Hospital Encounter [facility]X [facility] Ashwin Bundy PBrittaneyABrittaney-CBrittaney [address] [place] [address] (Wo rk) Social History Tobacco Use Types [...] How often do you attend pentecostalism or jain More than 4 time s [...] NAZARIO PA-C On: 02/24/2017 07:37 AM Source: [facility] POWERCHART Document Id: [id number] Leonora Barrios C.M.A. - 02/22/2017 10:36 AM CDT [facility] Exam [facility] Exam Entered On: 02/22/2017 10:37 CDT Performed On: 02/22/2017 10:36 CDT by LEONORA BARRIOS [facility] Chief Complaint and History Chief Complaint : Eye pain Pain Symptoms : Yes Smoking Status : Light tobacco smoker LEONORA BARRIOS [facility] - 02/22/2017 10:36 CDT Vision Testing Right Eye Vision Testing : With glasses - primary, 20/25 Left Eye Vision Testing : With glasses - primary, 20/30 Both Eyes Vision Testing : With glasses - primary, 20/25 LEONORA BARRIOS RELAY ADJUSTER - 02/22/2017 10:36 CDT Pain Scale Pain Scale Verbal 0-10 : Open LEONORA BARRIOS CMA - 02/22/2017 10:36 CDT Pain Pain Assessment Grid Pain 1 Location : Eye Laterality : Left Intensity : 6 LEONORA BARRIOS CMA - 02/22/2017 10:36 CDT Source: [facility] [employer] Document Id: [id number] CDT!17 documented in this encounter Miscellaneous Notes Miscellaneous - Catracho Nazario - 02/22/2017 10:44 AM CDT Work Excuse February 22, 2017 PUNEET FORREST [address] [facility] [id number] Dear PUNEET CLAYTON, You were examined in my office on: 02/22/17 Reason for work excuse: Medical Illness ( X ) Yes ( _ ) No Injury ( _ ) Yes ( _ ) No Is excused from all work: ( X ) Yes ( _ ) No Please excuse Puneet from work today. Sincerely, CATRACHO NAZARIO [id number] [address] Electronic Signature Electronically Signed By: CATRACHO NAZARIO PA-C On: February 22, 2017 This document has images extracted. Source: [facility] [employer] Document Id: [id number] Miscellaneous - Leonora Barrios C.M.ABrittaney - 02/22/2017 10:19 AM CDT Adult Chemical Supervisor Intake/History Adult Chemical Supervisor Intake/History Entered On: 02/22/2017 10:23 CDT Performed On: 02/22/2017 10:19 CDT by LEONORA BARRIOS [facility] Intake Chief Complaint : LEFT Eye, [...] Preferred Communication Mode : Verbal Languages : [place] Citizen Is Patient Female and 13-50 no [...] Use/Advised to Quit : Yes LEONORA BARRIOS [facility] - 02/22/2017 10:19 CDT Caffeine Use Grid Caffeine Use : Current Type : Coffee, Soft drinks Frequency : Occasionally LEONORA BARRIOS [facility] - 02/22/2017 10:19 CDT Recreational Drug Use Grid Drug Use : None LEONOAR BARRIOS [facility] - 02/22/2017 10:19 CDT Source: [facility] [employer] Document Id: [id number] CDT!58 documented in this encounter Plan of Treatment Scheduled Procedures Name Priority Associated Diagnoses Date/Time COLONOSCOPY Diarrhea documented as of this encounter Visit Diagnoses Not on filedocumented in this encounter Additional Health Concerns Assessment Noted Time PHQ-9 Depression Total Score: 11 12/13/2014 9:50 AM CD T documented as of this encounter Care Teams Excavating Supervisor Relationship Specialty Start Date End Date Catracho Bundy P.A.-C. PCP - General 02/04/17 04/26/19 documented as of this encounter
--- OUTSIDE RECORDS SUMMARY | 2022-07-08 08:56 | XMS_ITS | Encounter Summary ---
:1985 Author Organization [facility] Address [address] [place] [address] Care Team Providers Name Role Phone Blaire Bundy P.A.-C. Primary Care Provider [phone] Reason for Visit Reason Comments Care Encounter Details Date Type Department Care Team Description 07/29/2017 Office Visit Department of Leonora Reaves, Management C ontraception By Injection (Primary Dx); Obstetrics and COMMODITY SPECIALIST, C.N.P. Exam (HCC) Gynecology in [address] [address] [place], [place] [phone] [address] (Work) [phone] Social History Tobacco Use Types Packs/Day Years [...] How often do you attend restorationist or holiness More than 4 time s [...] Comments Blood Pressure 132/82 07/29/2017 10:53 AM COKE WORKER Pulse - - Temperature - - Respiratory Rate - - Oxygen Saturation - - Inhaled Oxygen Concentration - - Weight 145 kg (319 lb 10.7 oz) 07/29/2017 10:53 AM COKE WORKER Height - - Body Mass Index 58.3 06/23/2017 4:33 PM CDT documented in this encounter Progress Notes Leonora Reaves R.N., WHNP-BC - 07/29/2017 11:00 AM CST SUBJECTIVE CHIEF COMPLAINT / REASON FOR VISIT Carol Cooley, , is status post vaginal at [facility] in [place]. Antepartum course was complicated by: Obesity. course [...] or hernia Genitalia: external vulva, Bartholin's, urethra, Lankin's glands and fourchette negative Perineum: intact; well healed Vagina: normal Cervix: normal Bimanual: exam revealed normal mobile uterus, negative adnexa Rectovaginal exam: confirms good sphincter tone Building Construction Superintendent for pelvic exam or qualifying procedure: Lory [...] of the content. Leonora Reaves R.N., SIM- WORKER documented in this encounter Plan of Treatment [...] mg Right Vastus 150 mg 11:37 AM COKE WORKER Lateralis 150 mg, intramuscular, Every 12 weeks, First dose on Bryanna 07/29/17 at 1145, For 4 doses documented in this encounter Additional Health Concerns Assessment Noted Time PHQ-9 Depression Total Score: 7 04/07/2017 9:39 AM CDT documented as of this encounter Care Teams Intake Manager Relationship Specialty Start Date End Date Blaire Bundy P.A.-C. PCP - General 02/04/17 04/26/19 documented as of this encounter
--- OUTSIDE RECORDS SUMMARY | 2022-07-08 08:56 | XMS_ITS | Encounter Summary ---
:1985 Author Organization [facility] Address [address] [place] [address] Care Team Providers Name Role Phone Unavailable Primary Care Provider Unavailable Encounter Details Date Type Department Care Team Description 01/13/[address] [facility] Leonora Melchor A PRN, C.N.P. [address] [place], [place] [address] (Wo rk) Social History [...] How often do you attend confucianism or sikh More than 4 time s [...] given to the patient: Patient Education Materials: Mail Courier Adapting to : Second Trimester Mail Courier Adapting to : Second Trimester Keep up [...] schedule. Try taking shorter breaks more often. [id number] [employer] Travel The second trimester may be [...] smoke. ?? Dont breathe fumes from nail st helenian, hair spray, cleansers, or other chemicals. ?? [id number] [place] [address]. All rights reserved. This information is not intended as a substitute for professional medical care. Always follow your healthcare professional's instructions. This document has images extracted. Please consider using [employer] for all your patient education needs. Source: [facility] POWERCHART Document Id: [id number] documented in this encounter Miscellaneous Notes Miscellaneous - Leonora Villaseñor R.N. - 01/13/2017 11:31 AM CDT Ambulatory Patient Summary [facility] [address] [place], [place] [id number] Visit Information Name: PUNEET COOLEY [facility] Number: [id number] Current Date: 01/13/2017 11:31:39 Physicians Attending Provider: LEONORA VILLASEÑOR R.N., [facility] Primary Care Provider: CATRACHO NAZARIO PA-C PUNEET [...] emergency. Electronically Signed By: LEONORA VILLASEÑOR R.N., [facility] Signed On:13-JAN-2017 11:31:37 Your Allergies & Intolerances Substance Reaction Symptoms Category Comments penicillins Drug Your Problem List Problem Status Onset Comments Headache Migraine Active 01/21/2012 Headache Active 10/24/2007 11/18/13 Headache Dysthymic Disorder Active 08/01/2010 11/18/13 Dysthymic disorder Abuse Tobacco Smoking NOS Active Body Mass Index (BMI) 50.0-59.9 Adult Active Active 10/03/2016 Your Upcoming Appointments Date Time Location Provider 02/11/2017 09:30 [facility] Ultrasound [facility] 1 02/11/2017 10:15 [facility] ELECTRIC MOTOR ASSEMBLER AND TESTER Marisol Irving CNP Attention: Contact your local [...] smoke. ?? Dont breathe fumes from nail st helenian, hair spray, cleansers, or other chemicals. ?? [id number] Cecil Paez, [address] [place] [address], [place] [address]. All rights reserved. This information is not [...] if you dont have one. Go to [email or web address] and click on Create Your Account. Then, follow the directions to complete the online form. Youll be asked for your [facility] number which you can find at the top of this document. Your Goals/Additional instructions: This document has images extracted. Please consider using [employer] for all your patient education needs. Source: [facility] POWERCHART Document Id: [id number] Miscellaneous - Leonora Villaseñor R.N. - 01/13/2017 11:31 AM CDT Ambulatory Discharge Medication List [facility] [address], [address] [place], [place] [id number] Visit Information Name: COOLEYDORITAPUNEETCARRIE ALVARADO [facility] Number: [id number] Current Date: 01/13/2017 11:31:38 Attending Provider: LEONORA VILLASEÑOR R.N., [facility] Primary Care Provider: CATRACHO NAZARIO PA-C DORITA [...] emergency. Electronically Signed By: LEONORA VILLASEÑOR R.N., [facility] Signed On:13-JAN-2017 11:31:37 Additional Information: Source: [facility] POWERCHART Document Id: [id number] Miscellaneous - Cleopatra Laguerre LBrittaneyP.N. - 01/13/2017 10:18 AM CDT Adult Principal Investigator Intake/History Adult Principal Investigator Intake/History Entered On: 01/13/2017 10:22 CDT Performed [...] Information Given By : Patient Languages : Zambian Is Patient Female and 13-50 no hysterectomy : Yes Status : Confirmed positive Are you ? : No CLEOPATRA LAGUERRE LPN - 01/13/2017 10:18 CDT Subjective Pain Symptoms : No CLEOPATRA LAGUERRE [facility] - 01/13/2017 10:18 CDT Dependent Habits Exposure to Tobacco Smoke : Patient smokes Smoking Status : Former smoker Tobacco 2A : Yes Tobacco Use/Currently Using : No Tobacco Use/Last 30 Days : No Tobacco Use/Last 12 months : Yes Tobacco Last Use/Month : November Tobacco Last Use/Year : 2016 Type : Other: quit 11/[address] [facility] - 01/13/2017 10:18 CDT Caffeine Use Grid Caffeine Use : Current Type : Coffee, Soft drinks Frequency : Occasionally CLEOPATRA LAGUERRE [facility] 01/13/2017 10:18 CDT Recreational Drug Use Grid Drug Use : None CLEOPATRA LAGUERRE [facility] 01/13/2017 10:18 CDT Source: [employer] Document Id: [id number]!42 documented in this encounter Plan of Treatment Scheduled Procedures Name Priority Associated Diagnoses Date/Time COLONOSCOPY Diarrhea documented as of this encounter Visit Diagnoses Not on filedocumented in this encounter Additional Health Concerns Assessment Noted Time PHQ-9 Depression Total Score: 11 12/13/2014 9:50 AM CD T documented as of this encounter
--- OUTSIDE RECORDS SUMMARY | 2022-07-08 08:56 | XMS_ITS | Encounter Summary ---
:1985 Author Organization [facility] Address [address] [place] [address] Care Team Providers Name Role Phone Blaire Bundy P.A.-C. Primary Care Provider [phone] Encounter Details Date Type Department Care Team Description 02/11/2017 Hospital Encounter [facility]X [facility] Marisol Irving APRN, C.N.P. [address] [place] [address] (Wo rk) Social History Tobacco [...] How often do you attend pentecostalism or gnosticism More than 4 time s [...] Coding Summary-Paper Based CODING DATE: 02/16/2017 FINAL [facility] STATUS: * Discharged to Home [...] ROLDAN Date Saved: 02/16/2017 11:30 am Source: [facility] POWERCHART Document Id: [id number] Miscellaneous - Marisol Irving CBrittaneyN.P., R.N. - 02/11/2017 4:33 PM CDT Addendum by SOCORRO MARK on February 12, 2017 11:37:11 CDT From: SOCORRO MARK ( Obstetrics/Gynecology Field Operations Manager) To: PUNEET CLAYTON Sent: 02/12/2017 11:37:11 CDT [...] From: MARISOL IRVING CNP, RN To: Obstetrics/Gynecology Field Operations Manager; PUNEET CLAYTON Sent: 02/11/2017 16:33:06 CDT Puneet, [...] scheduled with your next appointment. Marisol Source: [facility] POWERCHART Document Id: [id number] documented in this encounter Plan of Treatment Scheduled Procedures Name Priority Associated Diagnoses Date/Time COLONOSCOPY Diarrhea documented as of this encounter Visit Diagnoses Not on filedocumented in this encounter Additional Health Concerns Assessment Noted Time PHQ-9 Depression Total Score: 11 12/13/2014 9:50 AM CD T documented as of this encounter Care Teams Scenario Writer Relationship Specialty Start Date End Date Blaire Bundy P.A.-C. PCP - General 02/04/17 04/26/19 documented as of this encounter
--- OUTSIDE RECORDS SUMMARY | 2022-07-08 08:56 | XMS_ITS | Encounter Summary ---
:1985 Author Organization [facility] Address [address] [place] [address] Care Team Providers Name Role Phone Unavailable Primary Care Provider Unavailable Encounter Details Date Type Department Care Team Description 11/24/[address] [facility] Marisol Lopez APRN, C.N.P. [address] [place] [address] (Wo rk) Social History Tobacco [...] How often do you attend caodaism or scientologist More than 4 time s [...] Coding Summary-Paper Based CODING DATE: 11/27/2016 FINAL [facility] STATUS: * Discharged to Home or Self Care [facility]: REASON FOR VISIT [...] ROLDAN Date Saved: 11/27/2016 10:20 am Source: [employer] Document Id: [id number] Miscellaneous - Leonora Villaseñor RBrittaneyN. - 11/24/2016 12:58 PM CDT From: LEONORA VILLASEÑOR CNP, RN Sent: 11/24/2016 12:58:55 CDT patient notified of ultrasound results. she will schedule new ob visit as soon as she is able. Source: [employer] Document Id: [id number] Electronically signed by [facility], [facility] Recreational Therapy Technician [id number] at 02/02/2017 6:27 AM CDT documented in this encounter Plan of Treatment Scheduled Procedures Name Priority Associated Diagnoses Date/Time COLONOSCOPY Diarrhea documented as of this encounter Visit Diagnoses Not on filedocumented in this encounter Additional Health Concerns Assessment Noted Time PHQ-9 Depression Total Score: 11 12/13/2014 9:50 AM CD T documented as of this encounter
--- OUTSIDE RECORDS SUMMARY | 2022-07-08 08:56 | XMS_ITS | Encounter Summary ---
:1985 Author Organization [facility] Address [address] [place] [address] Care Team Providers Name Role Phone Blaire Bundy P.A.-C. Primary Care Provider Encounter Details Date Type Department Care Team Description 03/11/2017 Hospital Encounter HX [facility] Leonora Reaves, FRUIT EXPRESS AGENT, C.N.P. [address] [place] [address] (Wo rk) Social History Tobacco [...] How often do you attend taoist or gnosticist More than 4 time s [...] Coding Summary-Paper Based CODING DATE: 03/16/2017 FINAL [facility] [place] STATUS: * Discharged to Home or Self [...] ROLDAN Date Saved: 03/16/2017 02:50 pm Source: [facility] POWERCHART Document Id: [id number] documented in this encounter Plan of Treatment Scheduled Procedures Name Priority Associated Diagnoses Date/Time COLONOSCOPY Diarrhea documented as of this encounter Visit Diagnoses Not on filedocumented in this encounter Additional Health Concerns Assessment Noted Time PHQ-9 Depression Total Score: 11 12/13/2014 9:50 AM CD T documented as of this encounter Care Teams Sports Photographer Relationship Specialty Start Date End Date Blaire Bundy P.A.-C. PCP - General 02/04/17 04/26/19 documented as of this encounter
--- OUTSIDE RECORDS SUMMARY | 2022-07-08 08:56 | XMS_ITS | Encounter Summary ---
:1985 Author Organization [facility] Address [address] [place] [address] Care Team Providers Name Role Phone Blaire Bundy P.A.-C. Primary Care Provider [phone] Reason for Visit Reason Comments Sore Throat sore throat since Wednesday, no fever, no bodyaches, headaches, dry cough Appointment Request (Routine) - Incomplete Specialty Diagnoses / Procedures Referred By Contact Refer red To Contact Referral ID Status Reason Start Date Expiration Date Visits V isits Requested Authorized [id number] Incomplete 08/02/2017 01/29/2018 1 1 Encounter Details Date Type Department Care Team Description 08/03/2017 Office Visit Department of [facility] Erin Bundy P.A.-C. [address] [place] [address] Sore Throat (Primary Dx); Medicine, Deb Brown, HYDROBLASTER, C.N.P. [address] [place] [address] [facility], in [address] [address] Social History Tobacco Use Types [...] How often do you attend anabaptism or nondenominational More than 4 time s [...] Comments Blood Pressure 139/65 08/03/2017 8:38 AM REFRIGERATION PLANT OPERATOR Pulse 79 08/03/2017 8:38 AM REFRIGERATION PLANT OPERATOR Temperature 36.3 ??C (97.3 ??F) 08/03/2017 8:38 AM REFRIGERATION PLANT OPERATOR Respiratory Rate 16 08/03/2017 8:38 AM REFRIGERATION PLANT OPERATOR Oxygen Saturation 98% 08/03/2017 8:38 AM REFRIGERATION PLANT OPERATOR Inhaled Oxygen Concentration - - Weight 147 kg (323 lb 10.2 oz) 08/03/2017 8:38 AM REFRIGERATION PLANT OPERATOR Height 158 cm (5' 2.21) 08/03/2017 8:38 AM REFRIGERATION PLANT OPERATOR Body Mass Index 58.8 08/03/2017 8:38 AM REFRIGERATION PLANT OPERATOR documented in this encounter Progress Notes Deb [...] viral illness. She was instructed to use [id number] pain analgesics and increased fluids for symptom management. We discussed the use of honey as needed for symptom management. She was instructed to contact the clinic with worsening or no improvement in symptoms. All questions were answered. She left in no acute distress. Deb Enamorado C.N.P., R.N. IGERATION PLANT OPERATOR documented in this encounter Plan of Treatment Scheduled Procedures Name Priority Associated Diagnoses Date/Time COLONOSCOPY Diarrhea documented as of this encounter Procedures Procedure Name Priority Date/Time Associated Diagnosis Comme nts BACTERIAL CULTURE, Routine 08/03/2017 4:12 PM Res ults for this THROAT REFRIGERATION PLANT OPERATOR procedure are i n the results section. RAPID STREP A Routine 08/03/2017 9:27 AM Sore Throat Results for this SCREEN REFRIGERATION PLANT OPERATOR procedure are i n the results section. documented in this encounter Results Bacterial Culture, Throat (08/03/2017 4:12 PM REFRIGERATION PLANT OPERATOR) [facility] Method Time Signature Throat No growth of 08/05/2017 [facility] Culture Streptococcus 6:38 AM REFRIGERATION PLANT OPERATOR [facility] Spec[facility] Anatomical Collection Method Collection Time Receive d Time (Source) Location / / Volume Laterality Throat Swab 08/03/2017 4:12 PM 7 4:12 REFRIGERATION PLANT OPERATOR PM REFRIGERATION PLANT OPERATOR Deb Enamorado APRN, C.N.P. LAB MICROBIOLOGY - GENE RAL ORDERABLES Performing Organization Address City/[facility]/ZIP Code Phon e Number [facility] [address] [place] [address], [facility] [id number] [facility] Rapid Strep A Screen Throat (08/03/2017 9:27 AM REFRIGERATION PLANT OPERATOR) athologist Signature Rapid Strep A Negative Negative 08/03/2017 [facility] Screen 9:52 AM [facility] LAB Specimen Anatomical Collection Method Collection Time Receive d Time (Source) Location / / Volume Laterality Varies (Throat) 08/03/2017 9:27 AM 2016 9:36 REFRIGERATION PLANT OPERATOR AM REFRIGERATION PLANT OPERATOR Deb Enamorado APRN, C.N.P. LAB MICROBIOLOGY - GENE RAL ORDERABLES Performing Organization Address City/[facility]/ZIP Code Phon e Number [facility] [address] [place] [id number] [facility] documented in this encounter Visit Diagnoses Diagnosis Sore Throat - Primary Cough Unspecified Type documented in this encounter Additional Health Concerns Assessment Noted Time PHQ-9 Depression Total Score: 7 04/07/2017 9:39 AM CDT documented as of this encounter Care Teams Programmer Engineering And Scientific Relationship Specialty Start Date End Date Blaire Bundy P.A.-C. PCP - General 02/04/17 04/26/19 documented as of this encounter
--- OUTSIDE RECORDS SUMMARY | 2022-07-08 08:56 | XMS_ITS | Encounter Summary ---
:1985 Author Organization [facility] Address [address] [place] [address] Care Team Providers Name Role Phone Blaire Bundy P.A.-C. Primary Care Provider Encounter Details Date Type Department Care Team Description 06/18/2017 Abstract Department of Family Medicine, Provider, Historical [facility], in [place], [place] [address] [place] [address] [facility] [phone] Social History Tobacco Use Types Packs/Day Years [...] How often do you attend zoroastrianism or faith More than 4 time s [...] as of this encounter Care Teams Assistant Auditor Relationship Specialty Start Date End Date Blaire Bundy P.A.-C. PCP - General 02/04/17 04/26/19 documented as of this encounter
--- OUTSIDE RECORDS SUMMARY | 2022-07-08 08:56 | XMS_ITS | Encounter Summary ---
:1985 Author Organization [facility] Address [address] [place] [address] Care Team Providers Name Role Phone Unavailable Primary Care Provider Unavailable Encounter Details Date Type Department Care Team Description 12/09/2016 Hospital Encounter [facility] Rabia Melchor A PRN, C.N.P. [address] [place], [place] [phone] (Wo rk) Social History [...] How often do you attend mandaen or hoahaoism More than 4 time s [...] oxygen. G1: 1 FT Date: 01-03-2008. Location [place]. weight 7#13oz Complications high blood pressure Delivery [...] Found Sexual history Brendon, . 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 BUS normal Urethra normal [...] should check with insurance regarding coverage at 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 Genetic testing and screening options discussed, booklet given. She is not interested in meeting with a genetic specialist or partner screening at this time. 6) BMI 59. planning delivery at [facility]. will plan for shared care. undecided on where anatomy scan ultrasound will be, here or at [facility]. 7) smoker, quitting. down to 1-2 cigs/week Referrals: _ Electronically Signed By: RABIA REAVES CNP, RN On: 12/09/2016 10:02 AM Modified by and Electronically Signed by: RABIA REAVES CNP RN On: 12/09/2016 10:02 AM Source: [facility] POWERCHART Document Id: [id number] documented in this encounter Nursing Notes Dawna Madera L.P.N. - 12/09/2016 8:33 AM CDT Antepartum Exam, Initial Document Has Been Updated Antepartum Exam, Initial Entered On: 12/09/2016 8:39 CDT Performed On: 12/09/2016 8:33 CDT by DAWNA MAEDRA L.P.N. Vitals/Ht/Wt Systolic Blood Pressure : 112 [...] Medical ; Code: 305.1 ; Contributor System: avocadostore ; Last Updated: 12/12/2014 9:21 CDT ; [...] Medical ; Code: 784.0 ; Contributor System: Second PorchChart ; Last Updated: 12/12/2014 9:11 CDT ; [...] RABIA HOLMAN MD; Vocabulary: ICD-9-CM (SNOMED CT :976198123 ) Name of Problem: ; Onset Date: 10/03/2016 ; Recorder: DAWNA MADERA L.P.N.; Confirmation: Confirmed ; Classification: Medical ; Code: 285561048 ; Last Updated: 12/09/2016 8:32 CDT ; Life Cycle Status: Active ; Responsible Provider: DAWNA MADERA L.P.N.; Vocabulary: SNOMED CT Diagnoses(Active) Date: 12/09/2016 ; Confirmation: Confirmed ; Clinical Dx: ; Classification: Medical ; Code: SNOMED CT ; Probability: 0 ; Diagnosis Code: 448122032 - Procedure History (As Of: 12/09/2016 09:09:45 [...] Medical ; Code: 346.90 ; Contributor System: avocadostore ; Last Updated: 12/12/2014 9:11 CDT ; Life Cycle Status: Active ; Responsible Provider: RABIA HOLMAN MD; Vocabulary: ICD-9-CM Headache Name of Problem: Headache ; Onset Date: 10/24/2007 ; Confirmation: Confirmed ; Classification: Medical ; Code: 784.0 ; Contributor System: Second PorchChart ; Last Updated: 12/12/2014 9:11 CDT ; LifeCycle Status: Active ; Vocabulary: ICD-9-CM ; Comments: - Headache Dysthymic Disorder Name of Problem: Dysthymic Disorder ; Onset Date: 08/01/2010 ; Confirmation: Confirmed ; Classification: Medical ; Code: 300.4 ; Contributor System: Second PorchChart ; Last Updated: 12/12/2014 9:11 CDT ; Life Cycle Status: Active ; Vocabulary: ICD-9-CM ; Comments: - Dysthymic disorder Name of Problem: ; Recorder: NICHOLE ADDISON; Confirmation: Confirmed ; Classification: Medical ; Code: 388798163 ; Last Updated: 12/12/2014 9:12 CDT ; [...] Comments: 03/13/2014 13:47 - JORY COPPOLA F 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 [...] CNP, SHRUTHI - 12/09/2016 10:03 CDT Source: [facility] POWERCHART Document Id: [id number]!27 documented in this encounter Miscellaneous Notes Miscellaneous - Rabia Reaves R.N., [facility]- - 05/20/2017 9:10 AM CDT RE: From: RABIA REAVES R.N. [facility] To: PUNEET CLAYTON Sent: 05/20/2017 09:10:24 CDT [...] From: PUNEET CLAYTON To: RABIA REAVES R.N. [facility] Sent: 05/19/2017 4:41:33 PM ([facility]-06:00) Central Time ([place] & [place]) Subject: RE: Should it hurt to walk though and when I move? From: RABIA REAVES R.N. [facility] To: PUNEET CLAYTON Sent: 05/19/2017 16:18:07 CDT Subject: RE: As you get closer to the end of the , it is not uncommon to have increased pelvic or vaginal pressure. If you have noticed a significant change in how you feel though, you should come in to beseen. From: PUNEET CLAYTON To: RABIA REAVES R.N. [facility] Sent: 05/19/2017 12:08:54 PM ([facility]-06:00) Central Time ([place] & [place]) Subject: [...] questions. have a good day! Rabia Source: [facility] POWERCHART Document Id: [id number] Miscellaneous - Rabia Reaves R.N., [facility] - 05/19/2017 4:18 PM CDT RE: From: RABIA REAVES R.N. [facility] To: PUNEET CLAYTON Sent: 05/19/2017 16:18:07 CDT Subject: RE: As you get closer to the end of the , it is not uncommon to have increased pelvic or vaginal pressure. If you have noticed a significant change in how you feel though, you should come in to beseen. From: PUNEET CLAYTON To: RABIA REAVES R.N. [facility] Sent: 05/19/2017 12:08:54 PM ([facility]-06:00) Central Time ([place] & [place]) Subject: [...] questions. have a good day! Rabia [facility] Document Id: [id number] Miscellaneous - Rabia Reaves R.N. - 12/15/2016 [...] questions. have a good day! Rabia Source: [employer] Document Id: [id number] Electronically signed by Roland [facility] Home Manager [id number] at 02/02/2017 12:38 PM CDT Leilani - [...] x10(9)/L (150 - 450) 12/09/2016 10:15 Syphilis IgG-[place] Negative (Negative - ) 12/09/2016 10:15 HIV 1/2 Ab and Ag Scrn-[place] Negative (Negative - ) 12/09/2016 10:15 Rubella IgG-[place] Equivocal 12/09/2016 10:15 Rubella IgG Ab Index-[place] 0.9 12/09/2016 10:15 Hep Bs Ag-[place] Negative (Negative - ) 12/09/2016 09:45 C trach Amp Src-[place] vagina 12/09/2016 09:45 C trach Amp RNA-[place] Negative (Negative - ) 12/09/2016 09:45 N gonor Amp DNA-[place] Negative (Negative - ) 12/09/2016 09:45 N gonor Amp Src-[place] vagina 12/09/2016 09:45 UA Color Yellow (Colorless [...] (*) Present (None Seen - ) [facility]: [facility] Document Id: [id number] Electronically signed by Conversion, [facility] Home Manager [id number] at 02/02/2017 12:38 PM CDT Miscellaneous - Rabia Reaves R.N. - 12/11/2016 1:15 PM CDT Normal Results Letter December 11, 2016 PUNEET CLAYTON [address] [facility] [id number] Dear PUNEET CLAYTON, Your Pap was normal. Your next pap is due in 3 yrs. Please contact me if you have any questions. Result Name Current Result ECHO TECH Cytology 12/09/2016 Sincerely, RABIA REAVES [address] [place] [address] Electronic Signature Electronically Signed By: RABIA REAVES CNP, RN On: December 11, 2016 This document has images extracted. Source: [facility] Cardia Document Id: [id number] Miscellaneous - Rabia Reaves, R.N. - 12/09/2016 10:04 AM CDT Ambulatory Patient Summary [facility] [address], [address] [place], [place] [phone] Visit Information Name: FORREST PUNEET ALVARADO [facility] Number: [id number] Current Date: 12/09/2016 10:04:46 Physicians Attending Provider: RABIA REAVES CNP, professor of poultry science Provider: CATRACHO NAZARIO PA-C PUNEET CLAYTON has [...] if you dont have one. Go to [email or web address] and click on Create Your Account. Then, follow the directions to complete the online form. Youll be asked for your [facility] number which you can find at the top of this document. Your Goals/Additional instructions: Source: [facility] POWERCHART Document Id: [id number] Leilani - Rabia Reaves R.N. - 12/09/2016 10:04 AM CDT Ambulatory Discharge Medication List [facility] [address], [address] [place], [place] [phone] Visit Information Name: PUNEET CLAYTON [facility] Number: [id number] Current Date: 12/09/2016 10:04:45 Attending Provider: RABIA REAVES CNP, professor of poultry science Provider: CATRACHO NAZARIO PA-C PUNEET CLAYTON has [...] RN Signed On:09-DEC-2016 10:04:43 Additional Information: Source: [facility] POWERCHART Document Id: [id number] Leilani - Alison Monsivais L.P.N. - 12/09/2016 9:48 AM CDT Water Quality Technician Documentation Water Quality Technician Documentation Entered On: 12/09/2016 9:48 CDT Performed On: 12/09/2016 9:48 CDT by ALISON MONSIVAIS LPN Water Quality Technician Documentation Exam/Procedure Performed : pelvic CD Water Quality Technician Present : Yes CD Water Quality Technician Name : ALISON Randall LPN - 12/09/2016 9:48 CDT Source: [facility] POWERCHART Document Id: [id number] CDT!5 documented in this encounter Plan of [...] procedure are in the results section. PATHOLOGY ECHO TECH Routine 12/09/2016 9:37 AM Results for this CYTOLOGY CDT procedure are i n the results section. documented in this encounter Results CBC without Differential (12/09/2016 10:15 AM CDT) P athologist Signature Leukocytes 7.7 3.5 - 10.5 POWERCHART X109L Erythrocytes 4.88 3.90 - 5.03 POWERCHART Z6131B Hemoglobin 13.7 12.0 - 15.5 POWERCHART GDL [...] exposure to syp hilis. Test Performed by: [facility] [address] [place] [id number] Specimen (Source) Anatomical Collection Method Collection Time Re ceived Time Location / / Volume Laterality Blood 12/09/2016 10:15 AM CDT Rabia Reaves APRN, C.N.P. LAB BLOOD ADD-ON Performing Organization Address City/[facility]/ZIP Code Phon e Number POWERCHART Rubella Antibodies, IgG (12/09/2016 10:15 AM CDT) Analysis Performed At Patho logist Time Signature HX Rubella Equivocal POWERCHART IgG-[place] Comment: Recommend follow-up testing in 10-14 day s if clinically indicated. REFERENCE VALUE------ Vaccinated: Positive (>=1.0 AI) Unvaccinated: Negative (<=0.7 AI) Rubella IgG Antibody Index 0.9 POW ERCHART Comment: Test Performed by: [facility] [address] [place] [address] Specimen (Source) Anatomical Collection Method Collection Time Re ceived Time Location / / Volume Laterality Blood 12/09/2016 10:15 AM CDT Rabia Reaves APRN C.N.P. LAB MICROBIOLOGY - BLOOD ORD ERABLES Performing Organization Address City/[facility] Code Phon e Number POWERCHART HIV-1/-2 Ag and Ab Screen (12/09/2016 10:15 AM CDT) athologist Signature HIV-1/-2 Negative Negative POWERCHART Antibody Comment: Negative result does not rule out HIV in fection. If acute HIV infection is suspected in a hi gh-risk individual, submit plasma specimen for H IV-1 RNA quantification test (HIVDQ) and/or HIV-2 DNA/RNA test (FHV2Q). Test [facility]: [facility] [address] [address] Specimen (Source) Anatomical Collection Method Collection Time Re ceived Time Location / / Volume Laterality Blood 12/09/2016 10:15 AM CDT Rabia Reaves APRN, C.N.P. LAB MICROBIOLOGY - BLOOD ORD ERABLES Performing Organization Address City/[facility]/ZIP Code Phon e Number POWERCHART Hepatitis B Surface Antigen (12/09/2016 10:15 AM CDT) P athologist Signature HBs Antigen, S Negative Negative POWERCHART Comment: Test Performed by: [facility] [address] [place] [phone] Specimen (Source) Anatomical Collection Method Collection Time [...] POWERCHART ABSC GEL (12/09/2016 10:15 AM CDT) [facility] gist Method Time Signature HX ABSC Gel Negative ABSC POWERCHART Specimen (Source) Anatomical Collection Method Collection Time Re ceived Time Location / / Volume Laterality 12/09/2016 10:15 AM CDT Rabia Reaves APRN, C.N.P. LAB HISTORICAL ORDERS Performing Organization Address City/[facility]/ZIP Code Phon e Number POWERCHART ABO/Rh (12/09/2016 10:15 AM CDT) P athologist Signature ABORh Interp A NEG POWERCHART Specimen (Source) Anatomical Collection Method Collection Time Re ceived Time Location / / Volume Laterality 12/09/2016 10:15 AM CDT Kendal Erazo APRNNJud LAB BLOOD BANK TEST ORDERABL ES Performing Organization Address [facility]/ZIP Code Phon e Number POWERCHART HX-N gonor Amp DNA (12/09/2016 9:45 AM CDT) P athologist Signature HXN gonor Amp Negative [facility]OWER[facility] Specimen (Source) Anatomical Collection Method Collection Time Re ceived Time Location / / Volume Laterality 12/09/2016 9:45 AM CDT Narrative POWERCHART - 12/10/2016 4:54 PM CDT ADDITIONAL INFORMATION This report is intended for use in clini huma monitoring and management of patients. It is not in tended for use in medical-legal applications. Test Performed by: [facility] [place] [address] Kendal Erazo APRNN.P. LAB HISTORICAL ORDERS Performing Organization Address City/State/ZIP Code Phon e Number POWERCHART HX-N gonor Amp Src (12/09/2016 9:45 AM CDT) P athologist Signature HXN gonor Amp vagina POWERCHART Src-[place] Specimen (Source) Anatomical Collection Method Collection Time Re ceived Time Location / / Volume Laterality 12/09/2016 9:45 AM CDT Kendal Erazo APRNN.P. LAB HISTORICAL ORDERS Performing Organization Address City/[facility]/ZIP Code Phon e Number POWERCHART HX-C trach Amp RNA (12/09/2016 9:45 AM CDT) [facility] gist Method Time Signature Chlamydia Negative POWERCHART [...] APRNN.P. LAB HISTORICAL ORDERS Performing Organization Address City/[facility]/ZIP Code Phon e Number POWERCHART HX-C trach Amp Src (12/09/2016 9:45 AM CDT) P athologist Signature HXC trach Amp vagina POWERCHART Src-[place] Specimen (Source) Anatomical Collection Method Collection Time Re ceived Time Location / / Volume Laterality 12/09/2016 9:45 AM CDT Marlyn Erazo APRN.N.P. LAB HISTORICAL ORDERS Performing Organization Address City/[facility]/ZIP Code Phon e Number POWERCHART (ABNORMAL) Bacterial Culture, Aerobic, Urine (12/09/2016 9:45 AM CDT) Patholo gist Method Time Signature Bacterial EC Susceptibl POWERCHART Culture, (POSITIVE) Aerobic, Urine HXPre URINE, CLEAN POWERCHART VOID HXPre Pending POWERCHART HXPre Pending-[facility] [address] [place] [address] Comment: URINE, CLEAN VOID Pending Pending-[facility] [address] [place] [phone] HXPre URINE, CLEAN VOID POWERCHART HXPre >[id number] COL/ML ESCHERICHIA COLI POWERCHART HXPre >[id number] COL/ML MULTIPLE ORGANISMS SUGGESTING PROBABLE POWERCHART CONTAMINATION HXPre PRELIMINARY, FINAL RESULT TO FOLLOW POWERCHART HXPre Pending-[facility] POWERCHART [address] [place] [address] Comment: URINE, CLEAN VOID >[id number] COL/ML ESCHERICHIA COLI >783768 COL/ML MULTIPLE ORGANISMS SUGGES TING PROBABLE CONTAMINATION PRELIMINARY, FINAL RESULT TO FOLLOW Pending-[facility] [address] [place] [address] HXFinal EC POWERCHART Comment: URINE, CLEAN VOID >805791 COL/ML ESCHERICHIA COLI >100195 COL/ML MULTIPLE ORGANISMS SUGGES TING PROBABLE CONTAMINATION FINAL 12/12/2016-[facility] [address] [place] [address] Escherichia coli Specimen (Source) Anatomical Collection Method [...] Complete, Includes Microscopic (12/09/2016 9:45 AM CDT) [facility] gist Method Time Signature HXUr Color Yellow [...] Leukocyte Esterase Large (A) Negative POWERCHART Specific [place], POCT, U 1.021 ELANA RCHART Comment: Reference Range Specific [place]: 1.000-1.035 HXUR WBC. 4-10 None Seen HPF [...] C.N.P. LAB URINE ORDERABLES Performing Organization Address [facility] Phon e Number POWERCHART Pathology ECHO TECH Cytology (12/09/2016 9:37 AM CDT) Specimen (Source) Anatomical Collection Method Collection Time Re ceived Time Location / / Volume Laterality 12/09/2016 9:37 AM CDT Narrative LUZ ELENA MAXWELL - 12/11/2016 11:20 AM CD T Pat: PUNEET CLAYTON ?([id number]) Age/Sex: 30 ??F ??Loc: ? -00 (RWN ) CoPath ??LIUDMILA: 12/09/16 09:37 ??REC: 16:00 ??PHYS: , Cytology ?ThinPrep cervical/endocerv Patient Name: PUNEET CLAYTON MR#: [id number] Submitting Physician: RABIA REAVES HEAD OF CONSERVATION ??[id number] Specimen #[id number] Performing Lab: ??[address] [address] CLINICAL HISTORY: Last menstrual period: Status: Specimen [...]
--- OUTSIDE RECORDS SUMMARY | 2022-07-08 08:56 | XMS_ITS | Encounter Summary ---
:1985 Author Organization [facility] Address [address] [place] [address] Care Team Providers Name Role Phone Unavailable Primary Care Provider Unavailable Encounter Details Date Type Department Care Team Description 01/07/2017 Hospital Encounter HX [facility] Critical access hospitalLeonora mckeon M.D. [address] [place] [phone] (Wo rk) Social History Tobacco Use [...] How often do you attend judaism or muslim More than 4 time s [...] Ordered: OV Est Pt Level 4 - 64580 - 25 min 2. Elevated Blood Pressure [...] Ordered: OV Est Pt Level 4 - 84412 - 25 min 3. High Risk NOS As per #2. Recommended f/u with OB. Ordered: OV Est Pt Level 4 - 22027 - 25 min Cough NOS Infection Urinary [...] HOLMAN MD On: 01/14/2017 06:39 AM Source: [facility] POWERCHART Document Id: [id number] documented in this encounter H&P Notes Puneet Lewis, R.N. - 01/07/2017 10:41 AM CDT Puneet Lewis RN, [employer] Nurse Practitioner Residency [...] PRN Allergies: penicillins Environmental/Occupational Conditions: Works in [employer] at a [employer]. Social History: Patient reports smoking cessation about [...] HOLMAN MD On: 01/24/2017 09:59 PM Source: [facility] appweevr Document Id: [id number] documented in this encounter Miscellaneous Notes Miscellaneous [...] care. Thanks, Puneet Lewis (DNP student) Source: [facility] appweevr Document Id: [id number] Miscellaneous - Leonora Holman M.D. - 01/07/2017 10:03 AM CDT Ambulatory Patient Summary [address] [place] [phone] Visit Information Name: PUNEET CLAYTON [facility] Number: [id number] Current Date: 01/07/2017 10:03:11 [...] if you dont have one. Go to [email or web address] and click on Create Your Account. Then, follow the directions to complete the online form. Youll be asked for your [facility] number which you can find at the top of this document. Your Goals/Additional instructions: Source: [facility] POWERCHART Document Id: [id number] Miscellrenee - Leonora Holman M.D. - 01/07/2017 10:03 AM CDT Ambulatory Discharge Medication List [address] [place] [phone] Visit Information Name: PUNEET CLAYTON [facility] Number: [id number] Current Date: 01/07/2017 10:03:10 [...] MD Signed On:07-JAN-2017 10:01:26 Additional Information: Source: [facility] POWERCHART Document Id: [id number] Leilani - Leonora Holman M.D. - 01/07/2017 10:01 AM CDT Work Excuse January 07, 2017 PUNEET CLAYTON [address] [place] [phone] Dear PUNEET CLAYTON, You were examined in [...] due to acute illness. Sincerely, LEONORA ABAD [address] [place] [address] Electronic Signature Electronically Signed By: LEONORA HOLMAN MD On: January 07, 2017 This document has images extracted. Source: [facility] appweevr Document Id: [id number] Miscellaneous - Roosevelt Louise L.P.N. - 01/07/2017 [...] LOUISE LPN - 01/07/2017 8:55 CDT [facility] Document Id: [id number]!8 Miscellaneous - Roosevelt Louise L.P.N. - 01/07/2017 8:51 AM CDT Adult Denture Waxer Intake/History Document Has Been Updated Adult Denture Waxer Intake/History Entered On: 01/07/2017 8:54 CDT Performed On: 01/07/2017 8:51 CDT by DANI, ROOSEVELT L SUPERVISOR LIQUEFACTION Intake Chief Complaint : URI for 1 month Cough productive green 14-15 weeks preg Would like note to be off work DANIROOSEVELT MENDOZA Apollo SUPERVISOR LIQUEFACTION - 01/07/2017 8:59 CDT Temperature Core : [...] 2 inch(es), 62 inch(es)) DANIROOSEVELT MENDOZA Apollo SUPERVISOR LIQUEFACTION - 01/07/2017 8:51 CDT General Info Information Given By : Patient Languages : Belgian Is Patient Female and 13-50 no hysterectomy [...] LOUISE LPN - 01/07/2017 8:51 CDT Source: [facility] App TechnologiesCHART Document Id: [id number] CDT!3 documented in this encounter Plan of [...] Organization Address City/[facility] [address]/[facility] Phon e Number POWERCHART (ABNORMAL) Urinalysis, Routine (01/07/2017 9:21 AM CDT) P athologist Signature Clarity Clear Clear POWERCHART HXUr Color Yellow Colorless POWERCHART Specific 1.010 POWERCHART [place], POCT, U Comment: Reference Range Specific [place]: 1.000-1.035 pH, POCT, Urine 6.0 <5.0 POWERCHART [...] Organization Address City/[facility] [address]/ZIP Code Phon e Number POWERCHART documented in this encounter Visit Diagnoses Not on filedocumented in this encounter Additional Health Concerns Assessment Noted Time PHQ-9 Depression Total Score: 11 12/13/2014 9:50 AM CD T documented as of this encounter
--- OUTSIDE RECORDS SUMMARY | 2022-07-08 08:56 | XMS_ITS | Encounter Summary ---
:1985 Author Organization [facility] Address [address] [place] [address] Care Team Providers Name Role Phone Blaire [...] How often do you attend protestant or moravian More than 4 time s [...] Organization Address City/State/ZIP Code Phon e Number IITN IITN NA documented in this encounter Visit Diagnoses Not on filedocumented in this encounter Additional Health Concerns Assessment Noted Time PHQ-9 Depression Total Score: 7 04/07/2017 9:39 AM CDT documented as of this encounter Care Teams Access Service Representative Relationship Specialty Start Date End Date Blaire Bundy P.A.-C. PCP - General 02/04/17 04/26/19 documented as of this encounter
--- OUTSIDE RECORDS SUMMARY | 2022-07-08 08:56 | XMS_ITS | Encounter Summary ---
:1985 Author Organization [facility] Address [address] [place] [address] Care Team Providers Name Role Phone Catracho Bundy P.A.-C. Primary Care Provider Encounter Details Date Type Department Care Team Description 03/11/2017 Hospital Encounter HX [facility] Leonora Melchor, Maureen TARIQ, C.N.P. [address] [place], [place] [address] (Wo rk) Social History [...] How often do you attend mormon or rastafarian More than 4 time s [...] Miscellaneous Notes Miscellaneous - Leonora Villaseñor R.N., [facility] - 03/11/2017 3:28 PM CDT Ambulatory Discharge Medication List [facility] [address] [place], [address] [place], [place] [phone] Visit Information Name: PUNEET COOLEY [facility] Number: [id number] Current Date: 03/11/2017 15:28:15 Attending Provider: LEONORA VILLASEÑOR R.N., [facility] Primary Care Provider: CATRACHO NAZARIO PA-C [...] WHNP-BC Signed On:11-MAR-2017 15:28:14 Additional Information: Source: [facility] POWERCHART Document Id: [id number] Miscellaneous - Leonora Villaseñor R.N., WHNP-BC - 03/11/2017 3:28 PM CDT Ambulatory Patient Summary [facility] [address], [address] [place], [place] [phone] Visit Information Name: PUNEET COOLEY [facility] Number: [id number] Current Date: 03/11/2017 15:28:15 Physicians [...] Appointments Date Time Location Provider 04/07/2017 09:00 [facility] PRACTICE ASSISTANT Leonora Villaseñor NP Attention: Contact your local [...] if you dont have one. Go to [email or web address] and click on Create Your Account. Then, follow the directions to complete the online form. Youll be asked for your [facility] number which you can find at the top of this document. Your Goals/Additional instructions: Source: [facility] POWERCHART Document Id: [id number] Miscellaneous - Dawna Madera L.P.NBrittaney - 03/11/2017 2:39 PM CDT Adult Reconciling Clerk Intake/History Adult Reconciling Clerk Intake/History Entered On: 03/11/2017 14:43 CDT Performed [...] Preferred Communication Mode : Verbal Languages : Thai Is Patient Female and 13-50 no hysterectomy [...] MADERA L.P.N. - 03/11/2017 14:39 CDT Source: [facility] [employer] Document Id: [id number] CDT!40 documented in this encounter Plan of [...] exposure to syp hilis. Test Performed by: [address], [place] [address] Specimen (Source) Anatomical Collection Method Collection Time Re ceived Time Location / / Volume Laterality Blood 03/11/2017 2:24 PM CDT Marlyn Carter APRN.N.P. LAB BLOOD ADD-ON Performing Organization Address [facility] Phon e Number POWERCHART POWERCHART NA (ABNORMAL) CBC without Differential (03/11/2017 2:24 PM CDT) Analysis Performed At Patho logist Time Signature Leukocytes 9.6 3.5 - 10.5 POWERCHART X109L Erythrocytes 3.95 3.90 - POWERCHART 5.03 C0409D Hemoglobin 11.6 (L) 12.0 - POWERCHART 15.5 [...] C.N.P. LAB BLOOD ADD-ON Performing Organization Address City/[facility] Code Phon e Number POWERCHART POWERCHART NA [...] C.N.P. LAB BLOOD ADD-ON Performing Organization Address City/[facility] Phon e Number POWERCHART POWERCHART NA documented in this encounter Visit Diagnoses Not on filedocumented in this encounter Additional Health Concerns Assessment Noted Time PHQ-9 Depression Total Score: 11 12/13/2014 9:50 AM CD T documented as of this encounter Care Teams Arranger Assembler Relationship Specialty Start Date End Date Bundy, Catracho E, P.A.-C. PCP - General 02/04/17 04/26/19 documented as of this encounter
--- OUTSIDE RECORDS SUMMARY | 2022-07-08 08:56 | XMS_ITS | Encounter Summary ---
:1985 Author Organization [facility] Address [address] [place] [address] Care Team Providers Name Role Phone Blaire [...] How often do you attend nondenominational or mu-ism More than 4 time s [...] Organization Address City/State/ZIP Code Phon e Number IINM IIMS NA documented in this encounter Visit Diagnoses Not on filedocumented in this encounter Additional Health Concerns Assessment Noted Time PHQ-9 Depression Total Score: 7 04/07/2017 9:39 AM CDT documented as of this encounter Care Teams Contracts Law Professor Relationship Specialty Start Date End Date Blaire Bundy P.A.-C. PCP - General 02/04/17 04/26/19 documented as of this encounter
--- OUTSIDE RECORDS SUMMARY | 2022-07-08 08:56 | XMS_ITS | Encounter Summary ---
:1985 Author Organization [facility] Address [address] [place] [address] Care Team Providers Name Role Phone Catracho Bundy P.A.-C. Primary Care Provider Encounter Details Date Type Department Care Team Description 05/30/2017 Hospital Encounter [facility] Rai Landaverde M.D. [address] [place] [address] (Wo rk) Social History Tobacco [...] How often do you attend taoist or mormon More than 4 time s [...] BERNAL RN - 05/30/2017 16:34 CDT Source: [facility] POWERCHART Document Id: [id number] CDT!19 Shiela Bernal R.N. - 05/30/2017 4:07 PM CDT Hospital Discharge Instructions [address] [id number] Patient Discharge Instructions Name: FORREST PUNEET CHRISTIANO Current Date: 05/30/2017 16:07:19 : 1985 12:00 AM [facility] Number: [id number] Patient Address: [address] [place] [id number] Patient Primary Care Provider: Name: CATRACHO NAZARIO Briana WHITING Discharge Diagnosis: [facility] would like to thank you for allowing [...] Appointments Date Time Location Provider 06/08/2017 09:00 [facility] MACHINIST SUPERVISOR Jean Paul MONTEMAYOR, Leonora Bustillos Consider Using [...] if you dont have one. Go to [email or web address] and click on Create Your Account. Then, follow the directions to complete the online form. Youll be asked for your [facility] number which you can find at [...] will start right away. You may feel Rule Ling contractions (false labor). These irregular contractions start to soften and thin the cervix. Many women mistake these contractions for true labor. They may be more noticable towards the end of the day. Feeling like the baby has dropped lower. In preparation for , the baby's head has settled deep into your pelvis. ?? 4613-9000 [facility], [address] [place] [address], [place] [address]. All rights reserved. This information is not [...] felt your baby move all day. ?? [id number] [facility], [address] [place] [address], [place] [address]. All rights reserved. This information is not intended as a substitute for professional medical care. Always follow your healthcare professional's instructions. This document has images extracted. Please consider using [employer] for all your patient education needs. Source: [facility] POWERCHART Document Id: [id number] Shiela Bernal R.N. - 05/30/2017 4:07 PM CDT Hospital Discharge Medication List [address] [address] Discharge Medication List Name: PUNEET CLAYTON Current Date: 05/30/2017 16:07:18 : 1985 12:00 AM [facility] Number: [id number] Patient Address: [address] [place] [id number] Patient Primary Care Provider: Name: CATRACHO NAZARIO PA-C Discharge Diagnosis: [facility] [place] would like to thank you for allowing [...] Comment: Electronically Signed By: Signed On: Source: [employer] Document Id: [id number] documented in this encounter Medications at Time [...] ASHLEY RN - 05/30/2017 16:28 CDT Source: [facility] [employer] Document Id: [id number] CDT!3 Shiela Bernal R.N. - 05/30/2017 3:45 PM CDT Ongoing Assessment Antepartum Ongoing Assessment Antepartum Entered On: 05/30/2017 16:31 CDT Performed On: 05/30/2017 15:45 CDT by SHIELA BERNAL crystal gazer Chief Complaint : decreased movement last few [...] Yes/No : No Nail Bed Color : [place] Capillary Refill : Less than 2 seconds [...] None SHIELA BERNAL RN 05/30/2017 16:29 CDT [place] Coma Eye Opening Response Jenise : Spontaneously Best Verbal Response [place] : Oriented Best Motor Response [place] : Obeys simple commands [place] Coma Score : 15 SHIELA BERNAL RN [...] Integrity : Intact Mucous Membrane Color : [place] Mucous Membrane Description : Moist Skin Color [...] BERNAL RN - 05/30/2017 16:29 CDT Source: [employer] Document Id: [id number] CDT!107 documented in this encounter Miscellaneous Notes Miscellaneous - Conversion, Historical Provider Ser - 05/30/2017 4:15 PM CDT Coding Summary-Paper Based CODING DATE: 05/31/2017 FINAL RW [facility] STATUS: * Discharged to Home or [...] ROLDAN Date Saved: 05/31/2017 10:39 am [facility]: [facility] Document Id: [id number] documented in this encounter Plan of Treatment Scheduled Procedures Name Priority Associated Diagnoses Date/Time COLONOSCOPY Diarrhea documented as of this encounter Visit Diagnoses Not on filedocumented in this encounter Additional Health Concerns Assessment Noted Time PHQ-9 Depression Total Score: 7 04/07/2017 9:39 AM CDT documented as of this encounter Care Teams Chronometer Repairer Relationship Specialty Start Date End Date Catracho Bundy P.A.-C. PCP - General 02/04/17 04/26/19 documented as of this encounter
--- OUTSIDE RECORDS SUMMARY | 2022-07-08 08:56 | XMS_ITS | Encounter Summary ---
:[address] [facility] Address [address] [place] [address] Care Team Providers Name Role Phone Blaire Bundy P.A.-C. Primary Care Provider [phone] Encounter Details Date Type Department Care Team Description 08/02/2017 Nurse Triage Department of [facility] Anastasia Sands, Medicine, [facility], R.N. in [address] [place] [address] [place] [address] [phone] Social History Tobacco Use Types Packs/Day Years [...] How often do you attend pentecostalism or quaker More than 4 time s [...] documented as of this encounter Care Teams Door Fitter Relationship Specialty Start Date End Date Blaire Bundy P.A.-C. PCP - General 02/04/17 04/26/19 documented as of this encounter
--- OUTSIDE RECORDS SUMMARY | 2022-07-08 08:56 | XMS_ITS | Encounter Summary ---
:1985 Author Organization [facility] Address [address] [place] [address] Care Team Providers Name Role Phone Blaire [...] How often do you attend mosque or pentecostalism More than 4 time s [...] in this encounter Results HX Syphilis Antibody Ideal, S (06/23/2017 8:47 AM CDT) [facility] Method Time Signature HX Syphilis Negative Negative [facility] Igg Ab LABORATORIES - W/Reflex, S [facility] Comment: Peripheral IV ? No serologic evidence of exposure to syp hilis. ? Specimen Anatomical Collection Method Collection Time Receive d Time (Source) Location / / Volume Laterality 06/23/2017 8:47 AM 7 8:47 CDT AM CDT Narrative [facility] [place] - 06/23/2017 12:57 PM CDT Peripheral IV Carol Hoskins M.D. LAB HISTORICAL ORDERS Performing Organization Address City/State/[facility] Phon e Number [facility] [address] [place], [place] [address] [facility] documented in this encounter Visit Diagnoses Not on filedocumented in this encounter Additional Health Concerns Assessment Noted Time PHQ-9 Depression Total Score: 7 04/07/2017 9:39 AM CDT documented as of this encounter Care Teams Rental Coordinator Relationship Specialty Start Date End Date Blaire Bundy P.A.-C. PCP - General 02/04/17 04/26/19 documented as of this encounter
--- OUTSIDE RECORDS SUMMARY | 2022-07-08 08:56 | XMS_ITS | Encounter Summary ---
:1985 Author Organization [facility] Address [address] [place] [address] Care Team Providers Name Role Phone Catracho Bundy P.A.-C. Primary Care Provider Encounter Details Date Type Department Care Team Description 06/08/2017 Hospital Encounter [facility]X [facility] Leonora Melchor, Maureen TARIQ, C.N.P. [address] [place], [place] [address] (Wo rk) Social History [...] How often do you attend temple or christian More than 4 time s [...] status: none position: vertex via ultrasound in [place]. Electronically Signed By: LEONORA VILLASEÑOR R.N., WHNP-BC On: 06/08/2017 09:29 AM Source: [facility] POWERCHART Document Id: [id number] documented in this encounter Nursing Notes VoCleopatra corona L.P.N. - 06/08/2017 9:02 AM CDT Ambulatory Patient Education The following Patient Education Materials have been given to the patient: Patient Education Materials: Water Resource Engineering Specialist What Is Group B Strep? Water Resource Engineering Specialist What Is Group B Strep? Group B [...] with a group B strep infection ?? [id number] [facility], [address] [place] [address], [place] [address]. All rights reserved. This information is not intended as a substitute for professional medical care. Always follow your healthcare professional's instructions. This document has images extracted. Please consider using [employer] for all your patient education needs. Source: [facility] POWERCHART Document Id: [id number] documented in this encounter Miscellaneous Notes Miscellaneous - Leonora Villaseñor R.N., WHNP-BC - 06/08/2017 9:39 AM CDT Ambulatory Discharge Medication List [address] [facility] [address] [place], [place] [phone] Visit Information Name: PUNEET COOLEY [facility] Number: [id number] Current Date: 06/08/2017 09:39:23 Attending Provider: LEONORA VILLASEÑOR R.N., [facility] Primary Care Provider: CATRACHO NAZARIO [...] WHNP-BC Signed On:08-JUN-2017 09:39:20 Additional Information: Source: [facility] POWERCHART Document Id: [id number] Miscellaneous - Leonora Villaseñor R.N., WHNP-BC - 06/08/2017 9:39 AM CDT Ambulatory Patient Summary [facility] [address], [address] [place], [place] [phone] Visit Information Name: PUNEET COOLEY [facility] Number: [id number] Current Date: 06/08/2017 [...] with a group B strep infection ?? [id number] [place] [address]. All rights reserved. This information is not [...] if you dont have one. Go to [email or web address] and click on Create Your Account. Then, follow the directions to complete the online form. Youll be asked for your [facility] number which you can find at the top of this document. Your Goals/Additional instructions: This document has images extracted. Please consider using [employer] for all your patient education needs. Source: [facility] POWERCHART Document Id: [id number] Miscellaneous - Cleopatra Laguerre L.P.N. - 06/08/2017 9:05 AM CDT Adult Career Development Facilitator Intake/History Adult Career Development Facilitator Intake/History Entered On: 06/08/2017 9:10 CDT Performed [...] Information Given By : Patient Languages : Polish Is Patient Female and 13-50 no hysterectomy [...] LAGUERRE LPN - 06/08/2017 9:05 CDT Source: [facility] POWERCHART Document Id: [id number] CDT!50 documented in this encounter Plan of Treatment Scheduled Procedures Name Priority Associated Diagnoses Date/Time COLONOSCOPY Diarrhea documented as of this encounter Visit Diagnoses Not on filedocumented in this encounter Additional Health Concerns Assessment Noted Time PHQ-9 Depression Total Score: 7 04/07/2017 9:39 AM CDT documented as of this encounter Care Teams Admitting Counselor Relationship Specialty Start Date End Date Catracho Bundy P.A.-C. PCP - General 02/04/17 04/26/19 documented as of this encounter
--- OUTSIDE RECORDS SUMMARY | 2022-07-08 08:56 | XMS_ITS | Encounter Summary ---
:1985 Author Organization [facility] Address [address] [place] [address] Care Team Providers Name Role Phone Blaire Bundy P.A.-C. Primary Care Provider [phone] Encounter Details Date Type Department Care Team Description 09/08/2017 Nurse Triage Department of [facility] Todd nikolas Marcos, RBrittaneyNBrittaney [facility], ([place] [address] [place] [address] Social History Tobacco Use Types [...] How often do you attend sabianist or jainism More than 4 time s [...] as of this encounter Care Teams Bench Assembler Relationship Specialty Start Date End Date Blaire Bundy P.A.-C. PCP - General 02/04/17 04/26/19 documented as of this encounter
--- OUTSIDE RECORDS SUMMARY | 2022-07-08 08:56 | XMS_ITS | Encounter Summary ---
:1985 Author Organization [facility] Address [address] [place] [address] Care Team Providers Name Role Phone Blaire Bundy P.A.-C. Primary Care Provider [phone] Encounter Details Date Type Department Care Team Description 04/07/2017 Hospital Encounter [facility] Leonora Melchor, Maureen TARIQ, C.N.P. [address] [place], [place] [phone] (Wo rk) Social History [...] How often do you attend baptist or restorationist More than 4 time s [...] documented as of this encounter Care Teams Learning Coordinator Relationship Specialty Start Date End Date Blaire Bundy P.A.-C. PCP - General 02/04/17 04/26/19 documented as of this encounter
--- OUTSIDE RECORDS SUMMARY | 2022-07-08 08:57 | XMS_ITS | Encounter Summary ---
:1985 Author Organization [facility] Address [address] [place] [address] Care Team Providers Name Role Phone Unavailable Primary Care Provider Unavailable Encounter Details Date Type Department Care Team Description 11/06/2016 [facility] En[facility] Leonora Melchor A PRN, C.N.P. [address] [place], [place] [address] (Wo rk) Social History [...] How often do you attend jewish or pentecostalism More than 4 time s [...] confirmation of due to + test at [facility]. She is , they have a [...] NIL G1: 1 FT Date: 01-03-2008. Location [place]. weight 7#13oz Complications high blood pressure Delivery [...] BMI 59. We [facility] care here at [facility] [place], [place]. 3) smoker, quitting. Electronically Signed By: LEONORA VILLASEÑOR CNP, RN On: 11/06/2016 12:06 PM Modified by and Electronically Signed by: LEONORA VILLASEÑOR CNP, RN On: 11/06/2016 10:46 AM Source: [facility] POWERCHART Document Id: [id number] documented in this encounter Miscellaneous Notes Miscellaneous - Leonora Villaseñor R.N. - 11/06/2016 12:02 PM CDT Ambulatory Discharge Medication List [facility] [address] [place], [address] [place], [place] [phone] Visit Information Name: PUNEET COOLEY [facility] Number: [id number] Current Date: 11/06/2016 12:02:18 Attending Provider: LEONORA VILLASEÑOR CNP crozer Provider: CATRACHO NAZARIO PA-C PUNEET COOLEY has [...] RN Signed On:06-NOV-2016 12:02:17 Additional Information: Source: [facility] POWERCHART Document Id: [id number] Miscellaneous - Leonora Villaseñor RMarcos. - 11/06/2016 12:02 PM CDT Ambulatory Patient Summary [facility] [address], [address] [place], [place] [phone] Visit Information Name: PUNEET COOLEY [facility] Number: [id number] Current Date: 11/06/2016 12:02:19 [...] if you dont have one. Go to [email or web address] and click on Create Your Account. Then, follow the directions to complete the online form. Youll be asked for your [facility] number which you can find at the top of this document. Your Goals/Additional instructions: Source: [facility] POWERCHART Document Id: [id number] Miscellaneous - Maurice Dozier L.PBrittaneyN. 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 Locomotive Intake/History Entered On: 11/06/2016 9:13 CDT Performed On: 11/06/2016 9:09 CDT by MAURICE DOZIER LPN Intake Chief Complaint : SUPPORT TEAM ASSOC LMP Date : 10/03/2016 Systolic Blood Pressure [...] 11/06/2016 9:09 CDT General Info Languages : Fijian Is Patient Female and 13-50 no hysterectomy [...] DOZIER LPN - 11/06/2016 9:09 CDT Source: [facility] Document Id: [id number] CDT!39 Miscellaneous - Maurice Dozier L.P.NBrittaney - [...] Alcohol Use : No DOZIER, MAURICE Maureen [facility] - 11/06/2016 9:08 CDT Caffeine Use Grid Caffeine Use : Current Type : Coffee, Soft drinks Frequency : Occasionally MAURICE DOZIER [facility] - 11/06/2016 9:08 CDT Recreational Drug Use Grid Drug Use : None SUKH DOZIERFER Maureen [facility] - 11/06/2016 9:08 CDT Psychosocial Domestic Abuse Concerns : None Behavioral Health Screen/Safety Assmt : Unable to obtain Confucianist Preference : No qualifying data available. MAURICE DOZIER [facility] 11/06/2016 9:08 CDT Advance Directive Advanced Directives : No Advance Directive Additional Information : No MAURICE DOZIER [facility] 11/06/2016 9:08 CDT Educ Needs Learning Style Preference Adult Grid Patient : None Family : None MAURICE DOZIER [facility] 11/06/2016 9:08 CDT Source: [facility] POWERCHART Document Id: [id number] CDT!37 documented in this encounter Plan of [...]
--- OUTSIDE RECORDS SUMMARY | 2022-07-08 08:57 | XMS_ITS | Encounter Summary ---
:1985 Author Organization [facility] Address [address] [place] [address] Care Team Providers Name Role Phone Unavailable Primary Care Provider Unavailable Encounter Details Date Type Department Care Team Description 03/05/2015 Hospital Encounter HX [facility] ED Joslyn Snyder M.D. [address] [place], [place] [phone] (Wo [...] How often do you attend synagogue or adventist More than 4 time s [...] 03/05/2015 10:42 AM CDT ED Depart Summary [facility] Emergency Department Clinical Discharge Summary PERSON INFORMATION Name PUNEET FRIED Age 29 Years 1985 12:00 AM Sex Female Language Malaysian PCP ALISON MONACO PA-C Marital Status Single Visit Id Visit Reason Throat pain - Adult; Extreme Throat Pain Specialty Enc Type Emergency Med Service Emergency Medicine Referred by Track Group [facility] ED Discharge 03/05/2015 10:30 AM Tracking Id [id number] Checkout 03/05/2015 10:30 AM Checkin 03/05/2015 6:02 AM Acuity 3 -Urgent Dispo Type * Discharged to Home or Self Care Arrival 03/05/2015 6:02 AM Reg Status Complete LOS 000 04:28 Address: [address] [place] [phone] Comment: PROVIDER INFORMATION Provider Role Provider Contact Time JOSLYN SNYDER MD ED Provider 03/05/15 06:20 MUARICE HAYS CYBER POLICY AND STRATEGY PLANNER Nurse 03/05/15 06:20 JOSLYN SNYDER MD ED Provider 03/05/15 06:25 DAWNA HART CYBER POLICY AND STRATEGY PLANNER Nurse 03/05/15 07:32 DIAGNOSIS Abscess Peritonsillar Comment: PATIENT EDUCATION INFORMATION Instructions: PERITONSILLAR ABSCESS Follow up: Source: [facility] POWERCHART Document Id: [id number] Dawna Hart R.N. - 03/05/2015 10:42 AM CDT ED Discharge Instructions [address] [place] [address] Name: PUNEET FRIED Date of : 1985 12:00 AM Visit Date: 03/05/2015 6:02 AM [facility] Number: [id number] Address: [address] [place] [phone] Primary Care Provider: ALISON MONACO PA-C IMPORTANT: [facility] in [place] would like to thank you for allowing [...] -- Trouble breathing or noisy breathing ?? [id number] [place] [address]. All rights reserved. This information is not [...] if you dont have one. Go to [email or web address] and click on Create Your Account. Then, follow the directions to complete the online form. Youll be asked for your [facility] number which you can find at [...] arrange a ride home with a responsible libertarian. FARIHA Cornejo AMANDA KAY , or responsible libertarian have received this information and my questions [...] arrange a ride home with a responsible libertarian. FARIHA Cornejo AMANDA KAY , or responsible libertarian have received this information and my questions have been answered. I have discussed any challenges I see with this plan with the nurse or physician. Patient Signature or Responsible Constitution Party/Relationship Date Time Provider Signature Date Time Source: [employer] Document Id: [id number] documented in this encounter ED Notes Dawna [...] HART RN - 03/05/2015 10:41 CDT Source: [employer] Document Id: [id number] CDT!8 Dawna Hart R.N. - 03/05/2015 9:56 [...] HART RN - 03/05/2015 9:56 CDT Source: [employer] Document Id: [id number] CDT!10 Dawna Hart R.N. - 03/05/2015 8:59 [...] HART RN - 03/05/2015 8:59 CDT Source: [employer] Document Id: [id number] CDT!10 Dawna Hart R.N. - 03/05/2015 7:30 [...] HART RN - 03/05/2015 7:30 CDT Source: [employer] Document Id: [id number] CDT!12 Dawna Hart R.N. - 03/05/2015 7:27 [...] HART RN - 03/05/2015 7:27 CDT Source: [facility] Datasnap[employer]io Document Id: [id number] CDT!10 Joslyn Snyder M.D. - 03/05/2015 6:26 [...] She was seen in emergency room in [place] where she was diagnosed with strep throat [...] Stat, Patient Bed, Once, 03/05/2015 6:27 CDT, [facility] ED, Launch Orders Pharmacy: [email or web address] (Order [...] The patient was told to go to [place] [facility] for further management and [...] SNYDER MD On: 03/05/2015 10:19 AM Source: [facility] POWERCHART Document Id: [id number]} Maurice Hays RBrittaneyN. - 03/05/2015 6:14 AM [...] Medical ; Code: 305.1 ; Contributor System: [employer] ; Last Updated: 12/12/2014 9:21 CDT ; Life Cycle Date: 12/12/2014 ; Life Cycle Status: Active ; Responsible Provider: MAURICE ADDISON; Vocabulary: ICD-9-CM Dysthymic Disorder (ICD-9-CM :300.4 ) Name of Problem: Dysthymic Disorder ; Onset Date: 08/01/2010 ;Confirmation: Confirmed ; Classification: Medical ; Code: 300.4 ; Contributor System: [employer] Intelligence[employer] ; Last Updated: 12/12/2014 9:11 CDT ; Life Cycle Status: Active ; Vocabulary: ICD-9-CM ; Comments: - Dysthymic disorder Headache (ICD-9-CM :784.0 ) Name of Problem: Headache ; Onset Date: 10/24/2007 ; Confirmation: Confirmed ; Classification: Medical ; Code: 784.0 ; Contributor System: [employer] Intelligence[employer] ; Last Updated: 12/12/2014 9:11 CDT ; [...] PNED ; Probability: 0 ; Diagnosis Code: [id number] Triage Chief Complaint Description : see triage Mode of Arrival ED : Private vehicle, Ambulatory Track : Medical Languages : Malaysian Treatments Prior to Arrival : Acetaminophen, Ibuprofen [...] HAYS RN - 03/05/2015 6:14 CDT Source: [facility] CE InteractiveCHART Document Id: [id number] CDT!48 Maurice Hays RMarcos. - 03/05/2015 6:09 [...] Medical ; Code: 346.90 ; Contributor System: [employer] ; Last Updated: 12/12/2014 9:11 CDT ; [...] PNED ; Probability: 0 ; Diagnosis Code: [id number] Triage Chief Complaint Description : Pt presents with sore throat. Diagnosed February 27 with strep was seen in ER March 02 again and changed antibiotics. Pain continues, hard to swallow and swollen. Tonsils hugemore on left then right side. Information Given By : Patient Accompanied By : Alone Mode of Arrival ED : Private vehicle, Ambulatory Track : Medical Languages : Malaysian Vital Signs Assessed : Yes Treatments Prior [...] Acuity : 3 -Urgent Tracking Group : [facility] ED MAURICE HAYS RN - 03/05/2015 6:09 CDT Allergy (As Of: 03/05/2015 06:14:25 CDT) Allergies (Active) penicillins Estimated Onset Date: Unspecified ; Created By: GLEN ACOSTA; Reaction Status: Active ;Category: Drug ; Substance: penicillins ; Type: Allergy ; Updated By: GLEN ACOSTA; Reviewed Date: 03/05/2015 6:14 CDT Immunizations Immunizations Current : Yes MAURICE HAYS RN - 03/05/2015 6:09 CDT Source: [employer] Document Id: [id number] CDT!48 documented in this encounter Miscellaneous Notes Miscellaneous - Dawna Hart R.N. - 03/05/2015 10:41 AM CDT Valuables/Belongings Valuables/Belongings Entered On: 03/05/2015 10:41 CDT Performed On: 03/05/2015 10:41 CDT by DAWNA HART RN Valuables/Belongings Belongings Sent Home With : patient DAWNA HART RN - 03/05/2015 10:41 CDT Source: [employer] Document Id: [id number] CDT!3 Miscellaneous - Conversion, Historical Provider Ser - 03/05/2015 10:30 AM CDT Coding Summary-Paper Based CODING DATE: 03/18/2015 FINAL [facility] STATUS: * Discharged to [...] PATRICK Date Saved: 03/18/2015 11:39 am Source: [facility] POWERCHART Document Id: [id number] Miscellaneous - Dawna Hart RRoverto - 03/05/2015 [...] Control : 7 Lynx Visit Level : 15806 Level 3 Treatments Prior to Arrival : Acetaminophen, Ibuprofen DAWNA HART RN - 03/05/2015 10:41 CDT Source: [facility] POWERCHART Document Id: [id number] CDT!19 documented in this encounter Plan of [...] Mononucleosis Screen, POCT (03/05/2015 6:54 AM CDT) [facility] [employer] Method Time Signature Infectious POWERCHART [place] Test, S HXFinal Negative POWERCHART HXFinal Reference: POWERCHART Negative Specimen (Source) Anatomical Collection Method Collection Time Re ceived Time Location / / Volume Laterality Blood 03/05/2015 6:54 AM CDT Joslyn Snyder M.D. LAB POCT ORDERABLES-MANUAL Performing Organization Address City/State/ZIP Code Phon e Number POWERCHART Test, Qualitative, Urine (03/05/2015 6:30 AM CDT) [facility] [employer] Method Time Signature HXBeta-hCG Negative POWERCHART Qualitative Urine Specimen (Source) Anatomical Collection Method Collection Time Re ceived Time Location / / Volume Laterality Urine 03/05/2015 6:30 AM CDT Joslyn Snyder M.D. LAB URINE ORDERABLES Performing Organization Address City/[facility]/ZIP Code Phon e Number POWERCHART documented in this encounter Visit Diagnoses Not on filedocumented in this encounter Additional Health Concerns Assessment Noted Time PHQ-9 Depression Total Score: 11 12/13/2014 9:50 AM CD T documented as of this encounter
--- OUTSIDE RECORDS SUMMARY | 2022-07-08 08:57 | XMS_ITS | Encounter Summary ---
:1985 Author Organization [facility] Address [address] [place] [address] Care Team Providers Name Role Phone Unavailable Primary Care Provider Unavailable Encounter Details Date Type Department Care Team Description 03/05/2015 Hospital En[facility] Jono Freedman M.D. [address] [place] [address] Social History Tobacco Use Types Packs/Day [...] How often do you attend confucianist or restorationist More than 4 time s [...] Zavala M.D. - 03/05/2015 11:30 AM CDT [id number] CHIEF COMPLAINT/REASON FOR VISIT Throat infection. HISTORY OF PRESENT ILLNESS Puneet is a 29-year-old who comes in to see me with a 1-week history of a sore throat. She saw Dr. Alisha black in [place] on 02/27. A throat culture done was [...] left side. She saw Dr. Snyder in [place]. A CT scan suggested a left multiloculated peritonsillar abscess. She has not had a lot of problems with her tonsils previously. She does smoke less than a half a pack of cigarettes per day. She has not had throat infection of this nature previously. New patient questionnaire and medical history in [facility] reviewed. PAST MEDICAL/SURGICAL HISTORY PAST MEDICAL HISTORY: Include a history of migraines. PREVIOUS HEAD AND NECK SURGERIES: None indicated. FAMILY HISTORY Negative for bleeding disorders. ALLERGIES Penicillin. SOCIAL HISTORY She works in a ch[employer] for [employer]. Does not drink alcohol, but does smoke somewhat of less than a pack of cigarettes per day. SYSTEMS REVIEW Positive for headaches. Others are negative. MEDICATIONS Listed and reviewed in [facility]. PHYSICAL EXAMINATION She is afebrile. [...] Thelma Zavala M.D./robb cc: Parth Snyder M.D. [address] [address] Electronically Signed By: THELMA ZAVALA MD On: 03/05/2015 03:00 PM Source: [facility] MHSDOLBEYNMARGOT Document Id: [id number] documented in this encounter Miscellaneous Notes Telephone Encounter - Thelma Zavala M.D. - 03/11/2015 12:00 AM CDT [id number] Puneet is a 29-year-old who I saw [...] ZAVALA MD On: 03/11/2015 09:42 AM Source: [facility] MHSDOLBEYNONRADSYS Document Id: [id number] Telephone Encounter - Sarina Mark R.N. - [...] is she had any further concerns. Source: [facility] POWERCHART Document Id: [id number] Miscellaneous - Thelma Zavala M.D. - 03/05/2015 12:10 PM CDT Ambulatory Patient Summary [facility] [address], [address] [place] [phone] Visit Information Name: PUNEET FRIED [facility] Number: [id number] Current Date: 03/05/2015 12:10:53 Physicians [...] day x 10 day(s) New Routed to [address] [address] EPINEPHrine (EpiPen Auto-Injector 0.3 mg injectable kit) [...] one. Go to [email or web address] and click on Create Your Account. Then, follow the directions to complete the online form. Youll be asked for your [facility] number which you can find at the top of this document. Your Goals/Additional instructions: Source: [facility] POWERCHART Document Id: [id number] Miscellaneous - Thelma Zavala M.D. - 03/05/2015 12:10 PM CDT Ambulatory Discharge Medication List [facility] [address], [address] [place] [phone] Visit Information Name: PUNEET FRIED [facility] Number: [id number] Visit Date: 03/05/2015 12:10:51 Attending [...] day x 10 day(s) New Routed to [address] [address] EPINEPHrine (EpiPen Auto-Injector 0.3 mg injectable kit) [...] MD Signed On:05-MAR-2015 12:10:43 Additional Information: Source: [facility] POWERCHART Document Id: [id number] Miscellaneous - Mariaelena Dominguez, R.N. 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 Intake/History Entered On: 03/05/2015 11:40 CDT Performed On: 03/05/2015 11:36 CDT by MARIAELENA DOMINGUEZ grader green meat Chief Complaint : left peritonsillar abcess Temperature [...] MARIAELENA DOMINGUEZ - 03/05/2015 11:36 CDT Source: [facility] WaspitCHART Document Id: [id number] CDT!41 documented in this encounter Plan of Treatment Scheduled Procedures Name Priority Associated Diagnoses Date/Time COLONOSCOPY Diarrhea documented as of this encounter Procedures Procedure Name Priority Date/Time Associated Diagnosis Comme nts BACTERIAL CULTURE, Routine 03/05/2015 12:01 PM Re sults for this AEROBIC CDT procedure are i n the results section. documented in this encounter Results (ABNORMAL) Bacterial Culture, Aerobic (03/05/2015 12:01 PM CDT) [facility] gist Method Time Signature Wound Culture [...]
--- OUTSIDE RECORDS SUMMARY | 2022-07-08 08:57 | XMS_ITS | Encounter Summary ---
:1985 Author Organization [facility] Address [address] [place] [address] Care Team Providers Name Role Phone Unavailable Primary Care Provider Unavailable Encounter Details Date Type Department Care Team Description 11/05/2016 Hospital Encounter HX [facility] Venu Nguyen M.D. [address] [place], [place] [phone] (Wo rk) Social History [...] How often do you attend adventist or restorationist More than 4 time s [...] Nguyen M.D. - 11/05/2016 12:13 PM CDT [id number] Ms. Cooley is a pleasant 30-year-old accompanied [...] than a pack per week. Works at [facility] [employer] [facility] [employer]. PHYSICAL EXAMINATION GENERAL: Appears well, no distress. [...] 61, I am not sure proceeding in [place] would even be an option. She will [...] Venu Nguyen M.D./robb cc: Blaire Thornton P.A.-C. [facility] in [address] [place] [address] Electronically Signed By: VENU NGUYEN MD On: 12/01/2016 01:38 PM Source: [facility] MHSDOLBEYNONRADSYS Document Id: [id number] documented in this encounter Miscellaneous Notes Miscellaneous - Madhavi Addison R.N. - 11/05/2016 12:26 PM CDT Adult Sole Leveler Intake/History Adult Sole Leveler Intake/History Entered On: 11/05/2016 12:30 CDT Performed On: 11/05/2016 12:26 CDT by MADHAVI ADDISON analytics associate Chief Complaint : chronic sore throat, large [...] 11/05/2016 12:26 CDT General Info Languages : Algerian Is Patient Female and 13-50 no hysterectomy [...] ADDISON RN - 11/05/2016 12:26 CDT [facility] Document Id: [id number] CDT!44 documented in this encounter Plan of Treatment Scheduled Procedures Name Priority Associated Diagnoses Date/Time COLONOSCOPY Diarrhea documented as of this encounter Procedures Procedure Name Priority Date/Time Associated Diagnosis Comme nts RAPID STREP A Routine 11/16/2016 10:12 AM Results for this SCREEN CDT procedure are i n the results section. documented in this encounter Results Rapid Strep A Screen (11/16/2016 10:12 AM CDT) [facility] Method Time Signature HXStrep A POWERCHART [...]
--- OUTSIDE RECORDS SUMMARY | 2022-07-08 08:57 | XMS_ITS | Encounter Summary ---
:1985 Author Organization [facility] Address [address] [place] [address] Care Team Providers Name Role Phone Unavailable Primary Care Provider Unavailable Encounter Details Date Type Department Care Team Description 12/10/2015 Hospital Encounter HX [facility] Renny Castro M.D. [address] [place], [place] [address] (Wo rk) Social History [...] How often do you attend orthodoxy or christian More than 4 time s [...] Acuna M.D. - 12/10/2015 7:54 AM CDT [id number] CHIEF COMPLAINT/REASON FOR VISIT A 3-month history [...] of the chest, treatment forallergic rhinitis. Timbo Aucna M.D./robb Electronically Signed By: TIMBO ACUNA MD On: 12/11/2015 08:52 AM Source: [facility] MHSDOLBEYNONRADSYS Document Id: [id number] documented in this encounter Miscellaneous Notes Miscellaneous - Timbo Acuna M.D. - 12/10/2015 9:16 AM CDT Ambulatory Patient Summary [address] [id number] Visit Information Name: PUNEET CLAYTON [facility] Number: [id number] Current Date: 12/10/2015 09:16:05 Physicians [...] day x 14 day(s) [facility] [address] [place] [address] topiramate (topiramate 25 mg oral tablet) 2 [...] you dont have one. Go to [email or web address] and click on Create Your Account. Then, follow the directions to complete the online form. Youll be asked for your [facility] number which you can find at the top of this document. Your Goals/Additional instructions: Source: [facility] POWERCHART Document Id: [id number] Miscellaneous - Timbo Acuna M.D. - 12/10/2015 9:16 AM CDT Ambulatory Discharge Medication List [address] [id number] Visit Information Name: PUNEET CLAYTON [facility] Number: [id number] Visit Date: 12/10/2015 09:16:04 Attending [...] day x 14 day(s) New Routed to [address] [address] topiramate (topiramate 25 mg oral tablet) 2 [...] Signed By: Signed On: Additional Information: Source: [facility] POWERCHART Document Id: [id number] Miscellaneous - Abimbola Perry L.P.N. - 12/10/2015 8:07 AM CDT Adult Director Treasurer Intake/History Adult Director Treasurer Intake/History Entered On: 12/10/2015 8:09 CDT Performed [...] 12/10/2015 8:07 CDT General Info Languages : Yi Is Patient Female and [...] PERRY LPN - 12/10/2015 8:07 CDT Source: [facility] [employer] Document Id: [id number] CDT!43 documented in this encounter Plan of Treatment Scheduled Procedures Name Priority Associated Diagnoses Date/Time COLONOSCOPY Diarrhea documented as of this encounter Visit Diagnoses Not on filedocumented in this encounter Additional Health Concerns Assessment Noted Time PHQ-9 Depression Total Score: 11 12/13/2014 9:50 AM CD T documented as of this encounter
--- OUTSIDE RECORDS SUMMARY | 2022-07-08 08:57 | XMS_ITS | Encounter Summary ---
:1985 Author Organization [facility] Address [address] [place] [address] Care Team Providers Name Role Phone Unavailable Primary Care Provider Unavailable Encounter Details Date Type Department Care Team Description 01/06/2016 Hospital En[facility] Ashwin Bundy, P.A.-C. [address] [place], [place] [phone] (Wo rk) Social History Tobacco Use Types [...] How often do you attend caodaism or uatsdin More than 4 time s [...] Ordered: OV Est Pt Level 4 - [address] - 25 min Total time spent 25 minutes, 15 minutes counseling the patient regarding sun care for skin (no tanning beds, cover when in the sun and wear sun screen) and performing the above procedure. Electronically Signed By: CATRACHO THORNTON P.A.-C. On: 01/08/2016 07:59 AM Source: [employer] POWERCHART Document Id: [id number] documented in this encounter Miscellaneous Notes Miscellaneous [...] Patient ( ) ( ) Call for Paper Machine Back Tender ( ) Follow up on Results ( ) Other: PROVIDER: ( ) Call Physician ( ) Call Pharmacist ( ) Call Lab ( ) Other: Special Instructions: Comments: Source: [facility] POWERCHART Document Id: [id number] Electronically signed by Roland, [facility] Code Enforcement Supervisor [id number] at 01/16/2017 3:01 PM CDT Miscellaneous - [...] Name Value 01/06/2016 09:25 Surg IV Accn-[place] [id number] 01/06/2016 09:25 Surg IV Addr-[place] See Comment 01/06/2016 09:25 Surg IV FnlDiag-[place] See Comment 01/06/2016 09:25 Surg IV Ref-[place] See Comment 01/06/2016 09:25 Surg IV SgnPath-[place] See Comment 01/06/2016 09:25 Surg IV Ts Desc-[place] See Comment [facility] Document Id: [id number] Electronically signed by Roland [facility] Centerguillermo Workman [id number] at 01/16/2017 3:01 PM CDT Leilani - [...] CARDONA LPN - 01/06/2016 8:32 CDT Source[facility] Document Id: [id number] CDT!8 Leilani - Jude Cardona L.P.NBrittaney - 01/06/2016 8:25 AM CDT Adult Box Estimator Intake/History Adult Box Estimator Intake/History Entered On: 01/06/2016 8:29 CDT Performed [...] 5 ft 2 inch(es), 62 inch(es)) JUDE CRADONA LPN - 01/06/2016 8:25 CDT General Info Languages : Cook Islander Is Patient Female and 13-50 no hysterectomy : Yes Status : Patient denies Are you ? : No JUDE CARDONA LPN - 01/06/2016 8:25 CDT Subjective Pain Symptoms : No JUDE CARDONA DECORATOR LIGHTING FIXTURES - 01/06/2016 8:25 CDT Dependent Habits Exposure [...] JUDE CARDONA LPN 01/06/2016 8:25 CDT Source: [facility] POWERCHART Document Id: [id number] CDT!40 documented in this encounter Plan of Treatment Scheduled Procedures Name Priority Associated Diagnoses Date/Time COLONOSCOPY Diarrhea documented as of this encounter Procedures Procedure Name Priority Date/Time Associated Diagnosis Comme [facility] SURGICAL PATHOLOGY Routine 01/06/2016 9:25 AM Res ults for this CDT procedure are i n the results section. documented in this encounter Results Pathology Anatpath Wet Tissue (01/06/2016 9:25 AM CDT) [facility] Time Signature HXSurg IV [id number] POWERCHART [facility] HXSurg IV See Comment POWERCHART [facility] Comment: RESULT: Eusebio Nathan HXSurg IV Addr-[place] See Comment POWERCHA RT Comment: [facility] [address] [address] [place] [address] SLIDE DISPOSITION: HXSurg IV [facility] See Comment POWER CHART Comment: [id number] A1 A. Received in formalin labeled with [...] nape of neck XRSR Path [facility] See Comment POWER CHART Comment: A. ??Skin, right neck, punch biopsy: ??L jacqueline irene. Participated in interpretation: Dr. Blane Shepherd. Pager: [phone]. As the signing pathologist, I verify fidelina t I have examined all relevant slides/materials for the specim en(s) and rendered or confirmed the diagnosis. HXSurg IV [facility] See Comment POWER CHART Comment: RESULT: 01/08/2016 15:55 Interpreted by: Lucas Lucia M.D. Report electronically signed by Lucas grey M.D. Transcribed by: amelia 01/08/2016 15:17:34 Test Performed by: [place] [address] Hvac Project Manager: Rubio Marshall II, M.D., Ph.D. Specimen (Source) [...]
--- OUTSIDE RECORDS SUMMARY | 2022-07-08 08:57 | XMS_ITS | Encounter Summary ---
:1985 Author Organization [facility] Address [address] [place] [address] Care Team Providers Name Role Phone Unavailable Primary Care Provider Unavailable Encounter Details Date Type Department Care Team Description 01/15/2016 Hospital Encounter [facility] Kyle Colmenares M .D., M.P.H. [address] [place], [place] [phone] (Wo rk) Social History [...] How often do you attend bahai or sikhism More than 4 time s [...] HINDS RN On: 01/15/2016 10:21 AM Source: [facility] POWERCHART Document Id: [id number] documented in this encounter Plan of Treatment [...] M.Tuberculos-M piyush HXTB Ag 0.00 INTUML POWERCHART Value-[place] Comment: ADDITIONAL INFORMATIO N This is a [...] when interpreting QuantiFERON-TB results. Test Performed by: [facility] [address] [place], [place] [address] Physiognomist: Rubio Marshall II, M.D., Ph.D. Specimen (Source) Anatomical Collection Method Collection Time Re ceived Time Location / / Volume Laterality Blood 01/15/2016 10:39 AM CDT Kyle Coleman M.D., M.P.H. LAB MICROBIOLOGY - BLOOD O BOBBY Performing Organization Address [facility] Phon e Number POWERCHART Mumps Ab, IgG (01/15/2016 10:39 AM CDT) P athologist Signature Mumps Ab, IgG, Positive POWERCHART S Comment: Results suggest response to immunization or prior exposure to the virus. REFERENCE VALUE------ Vaccinated: Positive (>=1.1 AI) Unvaccinated: Negative (<=0.8 AI) Mumps Ab, IgG, S 3.3 POWERCHART Comment: Test Performed by: [facility] [place] [address] Physiognomist: Rubio Marshall II, M.D., Ph.D. Specimen (Source) Anatomical Collection Method Collection Time Re ceived Time Location / / Volume Laterality Blood 01/15/2016 10:39 AM CDT Kyle Coleman M.D., M.P.HBrittaney LAB MICROBIOLOGY - BLOOD O BOBBY Performing Organization Address [facility] Phon e Number POWERCHART Rubella Antibodies, IgG (01/15/2016 10:39 AM CDT) P athologist Signature HX Rubella Positive POWERCHART [facility] Comment: Results suggest response to immunization or prior exposure to the virus. REFERENCE VALUE------ Vaccinated: Positive (>=1.0 AI) Unvaccinated: Negative (<=0.7 AI) Rubella IgG Antibody Index 1.2 POW ERCHART Comment: Test Performed by: [place] [id number] Physiognomist: Rubio Marshall II, M.D., Ph.D. Specimen (Source) Anatomical Collection Method Collection Time Re ceived Time Location / / Volume Laterality Blood 01/15/2016 10:39 AM CDT Kyle Coleman M.D., M.P.H. LAB MICROBIOLOGY - BLOOD O BOBBY Performing Organization Address [facility] Phon e Number POWERCHART Measles (Rubeola) Ab, IgG (01/15/2016 10:39 AM CDT) P athologist Signature Measles Positive POWERCHART (Rubeola) Ab, IgG, S Comment: Results suggest response to immunization or prior exposure to the virus. REFERENCE VALUE------ Vaccinated: Positive (>=1.1 AI) Unvaccinated: Negative (<=0.8 AI) Measles IgG Antibody Index 1.4 POW ERCHART Comment: Test Performed by: [address] [address] Physiognomist: Rubio Marshall II, M.D., Ph.D. Specimen (Source) Anatomical Collection Method Collection Time Re ceived Time Location / / Volume Laterality Blood 01/15/2016 10:39 AM CDT Kyle Coleman M.D., M.P.H. LAB MICROBIOLOGY - BLOOD O BOBBY Performing Organization Address [facility] Phon e Number POWERCHART Varicella-Zoster Antibody, IgG (01/15/2016 10:39 AM CDT) P athologist Signature Varicella-Zost Negative POWERCHART er Ab, IgG, S Comment: REFERENCE VALUE------ Vaccinated: Positive (>=1.1 AI) Unvaccinated: Negative (<=0.8 AI) Varicella-Zoster Ab, IgG, S 0.2 PO WERCHART Comment: Test Performed by: [place] [address] Physiognomist: Rubio Marshall II, M.D., Ph.D. Specimen (Source) [...]
--- OUTSIDE RECORDS SUMMARY | 2022-07-08 08:57 | XMS_ITS | Encounter Summary ---
:1985 Author Organization [facility] Address [address] [place] [id number] Care Team Providers Name Role Phone Unavailable Primary Care Provider Unavailable Encounter Details Date Type Department Care Team Description 11/05/2014 - Hospital Encounter [facility] John Berman 05/22/2015 Mago Purdy, M.S. [address] [place] [id number] Social History Tobacco Use Types Packs/Day Years [...] How often do you attend episcopalian or voodoo More than 4 time s [...] WANG PT On: 12/31/2014 08:57 AM Source: [facility] POWERCHART Document Id: [id number] documented in this encounter Progress Notes Dev [...] as able. Total Visit Time: 25 minutes [employer] Salesperson Present NA Electronically Signed By: DEV WANG PT On: 11/28/2014 11:31 AM Source: [facility] Document Id: [id number] Dev Wang P.T. - 11/21/2014 12:33 PM [...] as able. Total Visit Time: 27 minutes [employer] Salesperson Present NA Electronically Signed By: DEV WANG PT On: 11/21/2014 12:41 PM Source: [facility] Document Id: [id number] Daniel Craft P.T. - 11/16/2014 11:17 AM [...] cervical stabilization. Total Visit Time: 22 minutes [employer] Salesperson Present NA Electronically Signed By: DANIEL CRAFT PT On: 11/16/2014 11:20 AM Source: [facility] POWERCHART Document Id: [id number] Dev Wang P.T. - 11/07/2014 10:56 AM [...] cervical stabilization. 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 This plan of care has been discussed with the patient/wound care nurse and the patient/wound care nurse is in agreement. Frequency / Duration: Patient will be seen 2 session(s) every week(s) for 8 weeks for a total of 16 visits. I certify that the above rehabilitation services are required and authorized by al, and that the patient's plan will be [...] huma stabilization. TOTAL VISIT TIME: 45 minutes SIGNALS COLLECTION TECHNICIAN PRESENT NA MULTIDISCIPLINARY PATIENT / FAMILY EDUCATION [...] MONACO PA-C On: 11/05/2014 12:11 PM Source: [facility] Document Id: [id number] documented in this encounter Miscellaneous Notes Miscellaneous - Conversion, Historical Provider Ser - 11/08/2014 8:03 AM CDT Coding Summary-Paper Based CODING DATE: 11/08/2014 FINAL [facility] STATUS: Still Patient/Expected to Rtn Oupt [facility] PAYOR: [employer] ADMIT DX: V57.1 Care [...] Revised Date Saved: 11/08/2014 08:03 am Source: [facility] POWERCHART Document Id: [id number] documented in this encounter Plan of Treatment Scheduled Procedures Name Priority Associated Diagnoses Date/Time COLONOSCOPY Diarrhea documented as of this encounter Visit Diagnoses Not on filedocumented in this encounter Additional Health Concerns Assessment Noted Time PHQ-9 Depression Total Score: 18 05/02/2014 9:45 AM CD T documented as of this encounter
--- OUTSIDE RECORDS SUMMARY | 2022-07-08 08:57 | XMS_ITS | Encounter Summary ---
:1985 Author Organization [facility] Address [address] [place] [address] Care Team Providers Name Role Phone Unavailable Primary Care Provider Unavailable Encounter Details Date Type Department Care Team Description 10/29/2016 Hospital Encounter [facility]X [facility] Maureen Hooker, SPLINE ROLLING MACHINE JOB SETTER, C.N.P., D. N.P. [address] [place] [phone] (Wo rk) Social History Tobacco [...] How often do you attend confucianist or hoahaoism More than 4 time s [...] Comments Blood Pressure 144/90 10/29/2016 9:32 AM BUILDING EQUIPMENT INSPECTOR Pulse 104 10/29/2016 9:32 AM BUILDING EQUIPMENT INSPECTOR Temperature - - Respiratory Rate 20 10/29/2016 9:28 AM BUILDING EQUIPMENT INSPECTOR Oxygen Saturation - - Inhaled Oxygen Concentration - - Weight 149 kg (329 lb 5.9 oz) 10/29/2016 9:28 AM BUILDING EQUIPMENT INSPECTOR Height 157 cm (5' 1.81) 10/29/2016 9:32 AM BUILDING EQUIPMENT INSPECTOR Body Mass Index 60.61 10/29/2016 9:28 AM BUILDING EQUIPMENT INSPECTOR documented in this encounter Medications at [...] Panel OV Est Pt Level 4 - 90402 - 25 min 2. Missed Menses test is POSITIVE today. She was advised to start a vitamin today and follow up with her OBGYN soon for her first ultrasound. Ordered: OV Est Pt Level 4 - 39887 - 25 min 3. Headache Migraine Tylenol for migraines. We will also trial a 2-week course of an antihistamine and flonase nasal spray for possible sinus headaches. Ordered: OV Est Pt Level 4 - 11895 - 25 min Sinusitis Allergic See #2. Ordered: fluticasone nasal, 2 spray(s), Nostrils(Both), Daily, allergies, # 16 gm, 4 Refill(s), Maintenance,Pharmacy: [facility] loratadine, 10 mg = 1 tab(s), PO, Daily, x 30 day(s), # 30 tab(s), 11 Refill(s), Acute, over the counter medication (Rx) OV Est Pt Level 4 - 04529 - 25 min Patient was instructed to [...] C.N.P., D.N.P On: 10/29/2016 12:26 PM Source: [facility] POWERCHART Document Id: [id number] DING EQUIPMENT INSPECTOR documented in this encounter Miscellaneous Notes Miscellaneous - Rylee Hooker APRN, C.N.P., Priti.N.P. - 10/29/2016 10:07 AM BUILDING EQUIPMENT INSPECTOR Ambulatory Patient Summary [address] [place] [id number] Visit Information Name: PUNEET CLAYTON [facility] Number: [id number] Current Date: 10/29/2016 10:07:20 Physicians [...] nasal (Flonase 50 mcg/inh nasal spray) 2 Leoti(s), Nostrils(Both), once a day allergies New Routed to [address] [id number] furosemide (furosemide 20 mg oral tablet) 1 Tablet(s), Oral, once a day swelling New Routed to [facility] [address] [place] [address] ibuprofen (ibuprofen 400 mg oral tablet) 1 Tablet(s), Oral, every 4 hours as needed for Pain / FeverTake with food loratadine (Claritin 10 mg oral tablet) 1 Tablet(s), Oral, once a day x 30 day(s) New rizatriptan (Maxalt-SPECIAL INVESTIGATION UNIT INVESTIGATOR 10 mg oral tablet, disintegrating) 1 Tablet(s), Oral, as directed as needed for Migraine headache Take 1 tablet at onset of headache. Repeat after two hours if needed. New Routed to [address] [address] Stop Taking the Following Medications: SUMAtriptan (Imitrex [...] Appointments Date Time Location Provider 11/05/2016 12:45 [facility] ENT Jimmie CERON, Venu Gomez Attention: [...] you dont have one. Go to [email or web address] and click on Create Your Account. Then, follow the directions to complete the online form. Youll be asked for your [facility] number which you can find at the top of this document. Your Goals/Additional instructions: Source: [facility] POWERCHART Document Id: [id number] DING EQUIPMENT INSPECTOR Miscellaneous - Rylee Hooker APRN C.N.P., D.N.P. - 10/29/2016 10:07 AM BUILDING EQUIPMENT INSPECTOR Ambulatory Discharge Medication List [address] [place] [id number] Visit Information Name: PUNEET CLAYTON [facility] Number: [id number] Current Date: 10/29/2016 10:07:19 Attending [...] nasal (Flonase 50 mcg/inh nasal spray) 2 Leoti(s), Nostrils(Both), once a day allergies New Routed to [address] [address] furosemide (furosemide 20 mg oral tablet) 1 Tablet(s), Oral, once a day swelling New Routed to [address] [id number] ibuprofen (ibuprofen 400 mg oral tablet) 1 Tablet(s), Oral, every 4 hours as needed for Pain / FeverTake with food loratadine (Claritin 10 mg oral tablet) 1 Tablet(s), Oral, once a day x 30 day(s) New rizatriptan (Maxalt-SPECIAL INVESTIGATION UNIT INVESTIGATOR 10 mg oral tablet, disintegrating) 1 Tablet(s), Oral, as directed as needed for Migraine headache Take 1 tablet at onset of headache. Repeat after two hours if needed. New Routed to [address] [id number] Stop Taking the Following Medications: SUMAtriptan (Imitrex [...] D.N.P Signed On:29-OCT-2016 10:07:14 Additional Information: Source: [facility] Document Id: [id number] DING EQUIPMENT INSPECTOR Leilani - Craig Tolentino L.P.N. - 10/29/2016 9:32 AM CST Ambulatory Vitals Height Weight Ambulatory Vitals Height Weight Entered On: 10/29/2016 9:33 BUILDING EQUIPMENT INSPECTOR Performed On: 10/29/2016 9:32 BUILDING EQUIPMENT INSPECTOR by CRAIG TLOENTINO LPN Vitals/Ht/Wt Peripheral Pulse Rate : 104 /min (HI) Systolic Blood Pressure : 144 mmHg (HI) Diastolic Blood Pressure : 90 mmHg (HI) NIBP Mean : 108 mmHg BP Location : Left upper extremity Blood Pressure Cuff Size : Large Height : 157 cm(Converted to: 5 ft 2 inch(es), 62 inch(es)) CRAIG TOLENTINO LPN - 10/29/2016 9:32 BUILDING EQUIPMENT INSPECTOR Source: [facility] [place] Document Id: [id number] BUILDING EQUIPMENT INSPECTOR!9 DING EQUIPMENT INSPECTOR Leilani - Craig Tolentino L.P.N. - 10/29/2016 9:28 AM CST Adult Supervisor Core Drilling Intake/History Adult Supervisor Core Drilling Intake/History Entered On: 10/29/2016 9:31 BUILDING EQUIPMENT INSPECTOR Performed On: 10/29/2016 9:28 BUILDING EQUIPMENT INSPECTOR by CRAIG TOLENTINO LPN Intake Chief Complaint [...] 60.61 kg/m2 CRAIG TOLENTINO LPN 10/29/2016 9:28 BUILDING EQUIPMENT INSPECTOR General Info Information Given By : Patient Preferred Communication Mode : Verbal Languages : Cymraes Is Patient Female and 13-50 no hysterectomy : Yes Status : Possible unconfirmed Are you ? : No CRAIG TOLENTINO LPN 10/29/2016 9:28 BUILDING EQUIPMENT INSPECTOR Subjective Pain Symptoms : Yes CRAIG TOLENTINO LPN 10/29/2016 9:28 BUILDING EQUIPMENT INSPECTOR Pain Scale Pain Scale Verbal 0-10 : Open CRAIG TOLENTINO LPN 10/29/2016 9:28 BUILDING EQUIPMENT INSPECTOR Pain Pain Assessment Grid Pain 1 Location : Head Intensity : 5 CRAIG TOLENTINO LPN 10/29/2016 9:28 BUILDING EQUIPMENT INSPECTOR Dependent Habits Exposure to Tobacco Smoke : Patient smokes Smoking Status : Current every day smoker Tobacco 2A : Yes Tobacco Use/Currently Using : Yes Tobacco Use/Last 30 Days : Yes Tobacco Use/Last 12 months : Yes Type : Cigarettes: Less than 20 per day Tobacco Use/Advised to Quit : Yes Alcohol Use : No CRAIG TOLENTINO LPN 10/29/2016 9:28 BUILDING EQUIPMENT INSPECTOR Caffeine Use Grid Caffeine Use : Current Type : Coffee, Soft drinks Frequency : Occasionally CRAIG TOLENTINO LPN - 10/29/2016 9:28 BUILDING EQUIPMENT INSPECTOR Recreational Drug Use Grid Drug Use : None CRAIG TOLENTINO LPN 10/29/2016 9:28 BUILDING EQUIPMENT INSPECTOR [facility] Document Id: [id number] BUILDING EQUIPMENT INSPECTOR!55 DING EQUIPMENT INSPECTOR documented in this encounter Plan of Treatment Scheduled Procedures Name Priority Associated Diagnoses Date/Time COLONOSCOPY Diarrhea documented as of this encounter Procedures Procedure Name Priority Date/Time Associated Diagnosis Comme nts BASIC METABOLIC Routine 10/29/2016 10:16 AM Resul ts for this PANEL, S/P BUILDING EQUIPMENT INSPECTOR procedure are i n the results section. TEST, U Routine 10/29/2016 10:00 AM Res ults for this BUILDING EQUIPMENT INSPECTOR procedure are i n the results section. documented in this encounter Results BMP (Basic Metabolic Panel) (10/29/2016 10:16 AM BUILDING EQUIPMENT INSPECTOR) P athologist Signature Sodium, S 140 135 [...] POWERCHART MMOLL HXeGFR (MDRD) >60 >=60 POWERCHART [id number] eGFR >60 >=60 POWERCHART Black/ [id number] Togolese Glucose 125 70 - 139 POWERCHART MGDL Specimen (Source) Anatomical Collection Method Collection Time Re ceived Time Location / / Volume Laterality Blood 10/29/2016 10:16 AM BUILDING EQUIPMENT INSPECTOR Rylee Hooker APRN C.N.P., D.N.P. LAB BLOOD ADD-ON Performing Organization Address City/State/ZIP Code Phon e Number POWERCHART Test, Qualitative, Urine (10/29/2016 10:00 AM BUILDING EQUIPMENT INSPECTOR) Patholo gist Method Time Signature HXBeta-hCG Positive POWERCHART Qualitative Urine Specimen (Source) Anatomical Collection Method Collection Time Re ceived Time Location / / Volume Laterality Urine 10/29/2016 10:00 AM BUILDING EQUIPMENT INSPECTOR Rylee Hooker APRN, C.N.P., D.N.P. LAB URINE ORDERAB LES Performing Organization Address City/State/ZIP Code Phon e Number POWERCHART documented in this encounter Visit Diagnoses Not on filedocumented in this encounter Additional Health Concerns Assessment Noted Time PHQ-9 Depression Total Score: 11 12/13/2014 9:50 AM CD T documented as of this encounter
--- OUTSIDE RECORDS SUMMARY | 2022-07-08 08:57 | XMS_ITS | Encounter Summary ---
:1985 Author Organization [facility] Address [address] [place] [address] Care Team Providers Name Role Phone Unavailable Primary Care Provider Unavailable Encounter Details Date Type Department Care Team Description 07/19/2015 Hospital Encounter HX [facility] Luisa Stevens M .D. Social History [...] How often do you attend anabaptism or congregational More than 4 time s [...] Comments Blood Pressure 149/69 07/19/2015 9:15 PM SENIOR PRIVATE CLIENT ADVISOR Pulse 113 07/19/2015 9:15 PM SENIOR PRIVATE CLIENT ADVISOR Temperature - - Respiratory Rate - - Oxygen Saturation - - Inhaled Oxygen Concentration - - Weight - - Height - - Body Mass Index - - documented in this encounter Discharge Summaries Rylee Romero R.N. - 07/19/2015 10:17 PM CST ED Discharge Instructions [place] [id number] [address] [address] Name: PUNEET CLAYTON Date of : 1985 12:00 AM Visit Date: 07/19/2015 9:06 PM [facility] Number: [id number] Address: [address] [place] [phone] Primary Care Provider: ALISON LOREDO PA-C IMPORTANT: [facility] in [place] would like to thank you for allowing us to assist you with your healthcare needs. The following includes patient education materials and informationregarding your injury/illness. Diagnosis: Strep Throat Pharyngitis Follow-Up Instructions: With: Address: When: ALISON LOREDO [address] [place] [address] [facility] () Within As Needed Comments: Call for [...] ?? Muffled voice ?? New rash ?? [id number] [facility], [address] [place] [address]. All rights reserved. This information is not [...] if you dont have one. Go to [facility] emergency [email or web address] and click on Create Your Account. Then, follow the directions to complete the online form. Youll be asked for your [facility] number which you can find at the [...] a ride home with a responsible republican. FORREST Cornejo AMANDA KAY , or responsible republican [...] a ride home with a responsible republican. FORREST Cornejo AMANDA KAY , or responsible republican have received this information and my questions have been answered. I have discussed any challenges I see with this plan with the nurse or physician. Patient Signature or Responsible Constitution Party/Relationship Date Time Provider Signature Date Time This document has images extracted. Please consider using [employer] for all your patient education needs. Source: [employer] Document Id: [id number] OR PRIVATE CLIENT ADVISOR Rylee Romero R.N. - 07/19/2015 10:17 PM CST ED Depart Summary [facility] Emergency Department Clinical Discharge Summary PERSON INFORMATION Name PUNEET CLAYTON Age 29 Years 1985 12:00 AM Sex Female Language Peruvian PCP ALISON LOREDO PA-C [id number] Visit Reason UC - Sore Throat; Poss strep Specialty Enc Type Emergency Med Service Emergency Medicine Referred by Track Group [facility] ED Discharge 07/19/2015 10:17 PM Tracking Id [id number] Checkout 07/19/2015 10:17 PM Checkin 07/19/2015 9:06 PM Acuity 5 -Non Urgent Dispo Type * Discharged to Home or Self Care Arrival 07/19/2015 9:06 PM Reg Status Complete LOS 000 01:11 Address: [address] [place] [phone] Comment: PROVIDER INFORMATION Provider Role Provider Contact Time RYLEE ROMERO MUD TANK OPERATOR Nurse 07/19/15 21:08 LUISA LOPEZ MD ED Provider 07/19/15 21:08 DIAGNOSIS Strep Throat Pharyngitis Comment: PATIENT EDUCATION INFORMATION Instructions: PHARYNGITIS, Strep (Confirmed) Follow up: With: Address: When: ALISON LOREDO [address] [place] [address] [phone] [employer] (7) Within As Needed Comments: Call for follow up appointment Source: [facility] Asteres Document Id: [id number] OR PRIVATE CLIENT ADVISOR documented in this encounter ED Notes Rylee Romero RRoverto - 07/19/2015 10:14 PM CST ED Disposition Summary ED Disposition Summary Entered On: 07/19/2015 22:14 SENIOR PRIVATE CLIENT ADVISOR Performed On: 07/19/2015 22:14 SENIOR PRIVATE CLIENT ADVISOR by RYLEE ROMERO MUD TANK OPERATOR Disposition Summary Accompanied By : Spouse Printed Discharge Instructions Given to Patient : Yes RYLEE ROMERO RN - 07/19/2015 22:14 SENIOR PRIVATE CLIENT ADVISOR Source: [facility] [employer]res Document Id: [id number] SENIOR PRIVATE CLIENT ADVISOR!4 OR PRIVATE CLIENT ADVISOR Rylee Romero R.N. - 07/19/2015 10:14 PM CST ED Pain Assessment ED Pain Assessment Entered On: 07/19/2015 22:14 SENIOR PRIVATE CLIENT ADVISOR Performed On: 07/19/2015 22:14 SENIOR PRIVATE CLIENT ADVISOR by RYLEE ROMERO RN Pain Assessment Pain Symptoms : Yes RYLEE ROMERO RN - 07/19/2015 22:14 SENIOR PRIVATE CLIENT ADVISOR Source: [facility] POWERCHART Document Id: [id number] SENIOR PRIVATE CLIENT ADVISOR!3 OR PRIVATE CLIENT ADVISOR Rylee Romero R.N. - 07/19/2015 9:14 PM CST ED Primary Assessment Document Has Been Updated ED Primary Assessment Entered On: 07/19/2015 21:15 SENIOR PRIVATE CLIENT ADVISOR Performed On: 07/19/2015 21:14 SENIOR PRIVATE CLIENT ADVISOR by RYLEE ROMERO RN Reason For Visit (As Of: 07/19/2015 21:20:00 SENIOR PRIVATE CLIENT ADVISOR) Problems(Active) Abuse Tobacco Smoking NOS (ICD-9-CM :305.1 [...] Medical ; Code: 346.90 ; Contributor System: [employer] ; Last Updated: 12/12/2014 9:11 CDT ; Life Cycle Status: Active; Responsible Provider: RBAIA NATHAN MD; Vocabulary: ICD-9-CM (ICD-9-CM :V22.2 ) Name of Problem: ; Onset Date: 2007 ; Recorder: GLEN ACOSTA; Confirmation: Confirmed ; Classification: Medical ; Code: V22.2 ; Contributor System: [facility] ; Last Updated: 01/21/2012 9:41 CDT ; [...] PNED ; Probability: 0 ; Diagnosis Code: [id number] Triage Chief Complaint Description : see note Mode of Arrival ED : Private vehicle Track : Medical Languages : Peruvian Treatments Prior to Arrival : Acetaminophen Are you ? : No Is Patient Female and 13-50 no hysterectomy : Yes Status : Patient denies RYLEE ROMERO RN - 07/19/2015 21:14 SENIOR PRIVATE CLIENT ADVISOR Pain Assessment Pain Symptoms : Yes RYLEE ROMERO RN - 07/19/2015 21:14 SENIOR PRIVATE CLIENT ADVISOR Respiratory Airway : Patent Respirations : Unlabored Respiratory Pattern : Regular RYLEE ROMERO RN - 07/19/2015 21:14 SENIOR PRIVATE CLIENT ADVISOR Cardiovascular Heart Rhythm : Regular Skin Color : Normal for ethnicity Skin Description : Dry Skin Temperature : Warm RYLEE ROMERO RN - 07/19/2015 21:14 SENIOR PRIVATE CLIENT ADVISOR Neurological Last Well Time Known : Yes Last Known Well Time : 07/19/2015 8:00 SENIOR PRIVATE CLIENT ADVISOR Level of Consciousness : Alert Orientation : Oriented x 3 Characteristics of Speech : Appropriate for age RYLEE ROMERO RN - 07/19/2015 21:14 SENIOR PRIVATE CLIENT ADVISOR ED Psychosocial Affect/Behavior : Calm Domestic Abuse Concerns : None Behavioral Health Screen/Safety Assmt : No RYLEE ROMERO RN - 07/19/2015 21:14 SENIOR PRIVATE CLIENT ADVISOR Gastrointestinal Nutrition ED : Adequate RYLEE ROMERO RN - 07/19/2015 21:14 SENIOR PRIVATE CLIENT ADVISOR Musculoskeletal Fall Prevention Education Provided : NA RYLEE ROMERO RN - 07/19/2015 21:14 SENIOR PRIVATE CLIENT ADVISOR EENT Mouth and Throat Symptoms : Swollen tonsils RYLEE ROMERO RN - 07/19/2015 21:19 SENIOR PRIVATE CLIENT ADVISOR Social Habits Tobacco Use/Currently Using : Yes Exposure to Tobacco Smoke : Patient smokes Smoking Status : Current every day smoker RYLEE ROMERO RN - 07/19/2015 21:14 SENIOR PRIVATE CLIENT ADVISOR Tobacco Use Grid Type : Cigarettes Cigarette Use Packs/Day : 0.5 RYLEE ROMERO RN - 07/19/2015 21:14 SENIOR PRIVATE CLIENT ADVISOR Alcohol Use Grid Alcohol Use : Yes RYLEE ROMERO RN - 07/19/2015 21:14 SENIOR PRIVATE CLIENT ADVISOR Recreational Drug Use Grid Drug Use : None RYLEE ROMERO RN - 07/19/2015 21:14 SENIOR PRIVATE CLIENT ADVISOR Source: [employer] Document Id: [id number] SENIOR PRIVATE CLIENT ADVISOR!3 OR PRIVATE CLIENT ADVISOR Luisa Lopez M.D. - 07/19/2015 9:14 PM CST Throat Pain *ED Patient: PUNEET FRIED Age: 29 years Sex: Female : 1985 Author: LUISA LOPEZ MD Attachments: None Associated Diagnosis: Strep Throat Pharyngitis Basic Information Additional information: Chief Complaint from Nursing Triage Note : Chief Complaint Description 07/19/2015 21:12 SENIOR PRIVATE CLIENT ADVISOR Chief Complaint Description 29 year old female [...] Headache Abuse Tobacco Smoking NOS (305.1) Resolved ([id number]): Resolved on 01/03/2008 at 22 years.. Surgical history: Pap smear ([id number]) on 01/25/2013 at 27 Years. Pap smear ([id number]) on 01/25/2013 at 27 Years.. Family history: [...] review:Lab results : Lab View 07/19/2015 21:45 SENIOR PRIVATE CLIENT ADVISOR Strep A Screen Rapid POS . Reexamination/ [...] LOPEZ MD On: 07/19/2015 10:06 PM Source: [facility] POWERCHART Document Id: [id number] OR PRIVATE CLIENT ADVISOR Rylee Romero R.N. - 07/19/2015 9:12 PM CST ED Triage Assessment Document Has Been Updated ED Triage Assessment Entered On: 07/19/2015 21:14 SENIOR PRIVATE CLIENT ADVISOR Performed On: 07/19/2015 21:12 SENIOR PRIVATE CLIENT ADVISOR by RYLEE ROMERO RN Reason For Visit (As Of: 07/19/2015 21:14:31 SENIOR PRIVATE CLIENT ADVISOR) Problems(Active) Abuse Tobacco Smoking NOS (ICD-9-CM :305.1 ) Name of Problem: Abuse Tobacco Smoking NOS ; Recorder: MAURICE ADDISON; Confirmation: Confirmed ; Classification: Medical ; Code: 305.1 ; Contributor System: [facility] ; Last Updated: 12/12/2014 9:21 CDT ; [...] Medical ; Code: V22.2 ; Contributor System: [employer] ; Last Updated: 01/21/2012 9:41 CDT ; [...] PNED ; Probability: 0 ; Diagnosis Code: [id number] Triage Chief Complaint Description : 29 year old female admits with complaints of sore throat a nd fever Mode of Arrival ED : Private vehicle Track : Medical Languages : Peruvian Treatments Prior to Arrival : Acetaminophen Are you ? : No Is Patient Female and 13-50 no hysterectomy : Yes Status : Patient denies RYLEE ROMERO RN - 07/19/2015 21:12 SENIOR PRIVATE CLIENT ADVISOR Pain Assessment Pain Symptoms : Yes RYLEE ROMERO RN - 07/19/2015 21:12 SENIOR PRIVATE CLIENT ADVISOR Pain Scale Pain Scale Verbal 0-10 : Open RYLEE ROMERO RN - 07/19/2015 21:12 SENIOR PRIVATE CLIENT ADVISOR Pain Pain Assessment Grid Pain 1 Location : Throat Intensity : 5 RYLEE ROMERO RN - 07/19/2015 21:12 SENIOR PRIVATE CLIENT ADVISOR ED Physician Notification Time ED Physician Notification Time : 07/19/2015 21:14 SENIOR PRIVATE CLIENT ADVISOR RYLEE ROMERO RN - 07/19/2015 21:12 SENIOR PRIVATE CLIENT ADVISOR JAYDEN JAYDEN Level 1 : No JAYDEN Level 2 : No JAYDEN Level 3 : Many RYLEE ROMERO RN - 07/19/2015 21:12 SENIOR PRIVATE CLIENT ADVISOR DCP GENERIC CODE Tracking Acuity : 5 -Non Urgent Tracking Group : [facility] ED RYLEE ROMERO RN - 07/19/2015 21:12 SENIOR PRIVATE CLIENT ADVISOR Allergy (As Of: 07/19/2015 21:14:31 SENIOR PRIVATE CLIENT ADVISOR) Allergies (Active) penicillins Estimated Onset Date: Unspecified ; Created By: GLEN ACOSTA; Reaction Status: Active ;Category: Drug ; Substance: penicillins ; Type: Allergy ; Updated By: GLEN ACOSTA; Reviewed Date: 04/22/2015 10:36 CDT Immunizations Influenza : None RYLEE ROMERO RN - 07/19/2015 21:12 SENIOR PRIVATE CLIENT ADVISOR Source: [employer] Document Id: [id number] SENIOR PRIVATE CLIENT ADVISOR!30 OR PRIVATE CLIENT ADVISOR documented in this encounter Miscellaneous Notes Miscellaneous - Conversion, Historical Provider Ser - 07/19/2015 10:17 PM SENIOR PRIVATE CLIENT ADVISOR Coding Summary-Paper Based CODING DATE: 07/29/2015 FINAL [place] [facility] STATUS: * Discharged to Home or [...] PAGAN Date Saved: 07/29/2015 01:50 pm Source: [employer] Document Id: [id number] Miscellaneous - Rylee Romero RMarcos. - 07/19/2015 10:14 PM CST Valuables/Belongings Valuables/Belongings Entered On: 07/19/2015 22:14 SENIOR PRIVATE CLIENT ADVISOR Performed On: 07/19/2015 22:14 SENIOR PRIVATE CLIENT ADVISOR by RYLEE ROMERO RN Valuables/Belongings Belongings Sent Home With : Allsent with patient RYLEE ROMERO RN - 07/19/2015 22:14 SENIOR PRIVATE CLIENT ADVISOR Source: [employer] Document Id: [id number] SENIOR PRIVATE CLIENT ADVISOR!3 OR PRIVATE CLIENT ADVISOR Miscellaneous - Rylee Romero R.N. - 07/19/2015 9:06 PM CST Facility Charge Ticket 2.0 11.0 DX Facility Charge Ticket 2.0 11.0 DX Entered On: 07/19/2015 22:14 SENIOR PRIVATE CLIENT ADVISOR Performed On: 07/19/2015 21:06 SENIOR PRIVATE CLIENT ADVISOR by RYLEE ROMERO RN Facility Charge Ticket [...] Nursing Notes ED Primary Assessment,07/19/15 21:14,RYLEE ROMERO MUD TANK OPERATOR Primary Assessment,07/19/15 21:14,RYLEE ROMERO MUD TANK OPERATOR Pain Assessment,07/19/15 22:14,RYLEE ROMERO RN Lynx Nursing Assessment : Triage and 1-2 nursing assessments Lynx Disposition : Discharge Disposition RTF : discharge [facility]x Total Points with Diagnosis Control : 5 Lynx Visit Level : 68589 Level 3 Treatments Prior to Arrival : Acetaminophen RYLEE ROMERO RN - 07/19/2015 22:14 SENIOR PRIVATE CLIENT ADVISOR Source: [facility] POWERCHART Document Id: [id number] SENIOR PRIVATE CLIENT ADVISOR!19 OR PRIVATE CLIENT ADVISOR documented in this encounter Plan of Treatment Scheduled Procedures Name Priority Associated Diagnoses Date/Time COLONOSCOPY Diarrhea documented as of this encounter Procedures Procedure Name Priority Date/Time Associated Diagnosis Comme nts RAPID STREP A Routine 07/19/2015 9:45 PM Results for this SCREEN SENIOR PRIVATE CLIENT ADVISOR procedure are i n the results section. documented in this encounter Results (ABNORMAL) Rapid Strep A Screen (07/19/2015 9:45 PM SENIOR PRIVATE CLIENT ADVISOR) [facility] gist Method Time Signature HXStrep A (POSITIVE) POWERCHART Screen Rapid HXFinal Positive for POWERCHART Group A Strep by rapid screen. Specimen (Source) Anatomical Collection Method Collection Time Re ceived Time Location / / Volume Laterality Throat 07/19/2015 9:45 PM SENIOR PRIVATE CLIENT ADVISOR Luisa Lopez M.D. LAB MICROBIOLOGY - GENERAL O RDERABLES Performing Organization Address City/State/ZIP Code Phon e Number POWERCHART documented in this encounter Visit Diagnoses Not on filedocumented in this encounter Additional Health Concerns Assessment Noted Time PHQ-9 Depression Total Score: 11 12/13/2014 9:50 AM CD T documented as of this encounter
--- OUTSIDE RECORDS SUMMARY | 2022-07-08 08:57 | XMS_ITS | Encounter Summary ---
:1985 Author Organization [facility] Address [address] [place] [address] Care Team Providers Name Role Phone Unavailable Primary Care Provider Unavailable Encounter Details Date Type Department Care Team Description 03/15/2015 Hospital Encounter HX [facility] Barbra Vora M.D. [address] [place] [phone] (Wo rk) Social History Tobacco Use [...] How often do you attend worship or amish More than 4 time s [...] Chang M.D. - 03/15/2015 9:12 AM CDT [id number] Document Contains Addenda REVISION HISTORY March 18, 2015 at 10:17 a.m. - Addendum added by Trev Chang M.D. The document below is the most current and includes the modifications. The patient has no history of narcolepsy in the past, but recently has been falling asleep more easily. She has to go to work in [employer] and one night at 10 p.m. as [...] a consultation with the pulmonary specialists at [place]. She should take Zoloft 150 mg a.m. [...] CHANG MD On: 03/18/2015 03:53 PM Source: [facility] [email or web address] Document Id: [id number] documented in this encounter Miscellaneous Notes Miscellaneous - Trev Chang M.D. - 03/15/2015 10:16 AM CDT Ambulatory Patient Summary [address] [id number] Visit Information Name: PUNEET FRIED [facility] Number: [id number] Current Date: 03/15/2015 10:16:07 [...] a day Discontinue [facility]ine [facility] [address] [id number] SUMAtriptan (SUMAtriptan 50 mg oral tablet) 1 Tablet(s), Oral, as directed as needed for Migraine headache Take 1 tablet at onset of headache. Repeat after two hours if needed. traZODone (traZODone 50 mg oral tablet) 1 Tablet(s), Oral, once a day [facility] [address] [address] Stop Taking the Following Medications: [...] need MRI Scan of Brain first. Source: [facility] POWERCHART Document Id: [id number] Miscellaneous - Trev Chang M.D. - 03/15/2015 10:16 AM CDT Ambulatory Discharge Medication List [address] [id number] Visit Information Name: FARIHA PUNEETCARRIE ALVARADO [facility] Number: [id number] Visit Date: 03/15/2015 10:16:05 [...] a day Discontinue Velafaxine New Routed to [facility] [place] [address] SUMAtriptan (SUMAtriptan 50 mg oral tablet) 1 Tablet(s), Oral, as directed as needed for Migraine headache Take 1 tablet at onset of headache. Repeat after two hours if needed. traZODone (traZODone 50 mg oral tablet) 1 Tablet(s), Oral, once a day New Routed to [facility] [address] [address] Stop Taking the Following Medications: Medication list [...] Signed By: Signed On: Additional Information: Source: [facility] POWERCHART Document Id: [id number] Miscellaneous - Trev Chang M.D. - 03/15/2015 10:13 AM CDT Addendum by TREV CHANG MD on 22 March 2015 08:51:25 CDT will do it today.Thanks Addendum by ADITYA HWANG on 15 March 2015 15:39:00 CDT From: ADITYA HWANG To: TREV CHANG MD; Sent: 03/15/2015 15:39:00 CDT ! Subject: FW: The dictation for this patient needs to be submitted LEN for the Referrals to [facility]. Addendum by ADITYA HWANG on 15 March 2015 14:28:10 CDT From: ADITYA HWANG To: ADITYA HWANG; Sent: 03/15/2015 14:28:10 CDT Subject: RE: Referral submitted via online. [place] scheduling staff will contact patient with appt. info. From: TREV CHANG MD To: ADITYA HWANG; Sent: 03/15/2015 10:13:53 CDT Aditya, this patient,Puneet, has an extremely serious problem with sleep Apnea. Please arrange Consult with sleep Specialist SOON POSSIBLE. Study can follow. Source: [facility] POWERCHART Document Id: [id number] Electronically signed by Conversion, [facility] Oil Well Service Unit Operator [id number] at 01/18/2017 12:33 AM CDT Miscellaneous - Mimi Herrera L.P.N. - 03/15/2015 9:36 AM CDT Adult Waste Water Operator Intake/History Adult Waste Water Operator Intake/History Entered On: 03/15/2015 9:39 CDT Performed [...] 03/15/2015 9:36 CDT General Info Languages : Korean Is Patient Female and 13-50 no hysterectomy [...] LPN, RT - 03/15/2015 9:36 CDT Source: [facility] [employer] [facility] [employer] Document Id: [id number] CDT!40 documented in this encounter Plan of Treatment Scheduled Procedures Name Priority Associated Diagnoses Date/Time COLONOSCOPY Diarrhea documented as of this encounter Visit Diagnoses Not on filedocumented in this encounter Additional Health Concerns Assessment Noted Time PHQ-9 Depression Total Score: 11 12/13/2014 9:50 AM CD T documented as of this encounter
--- OUTSIDE RECORDS SUMMARY | 2022-07-08 08:57 | XMS_ITS | Encounter Summary ---
:1985 Author Organization [facility] Address [address] [place] [address] Care Team Providers Name Role Phone Unavailable Primary Care Provider Unavailable Encounter Details Date Type Department Care Team Description 04/22/2015 Hospital Encounter HX [facility] NEUROLOGY Nicci Gutiérrez D.O. [address] [place] [address] (Wo rk) Social History Tobacco [...] How often do you attend quaker or adventist More than 4 time s [...] CHIEF COMPLAINT/REASON FOR VISIT consult Denys in [place]/migraine headaches daily REFERRAL SOURCE Trev Mcfarlane MD [...] year old son. 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 Rarely drinks [...] tendon reflexes (with reinforcement) Babinski: Absent Coordination: Histkk-pk-bwrq is normal. AMRs are normal. Sensation: Vibratory [...] scheduled to have a sleep study in [place] to evaluate whether this may be a [...] # 60 tab(s), 5 Refill(s), Maintenance, Pharmacy: [id number] Orders: SUMAtriptan, 100 mg = 1 tab(s), PO, As Directed, PRN Migraine headache, Take 1 tablet at onset of headache. Repeat after two hours if needed., # 18 tab(s), 5 Refill(s), Maintenance, Pharmacy: [facility] [id number] FOOTNOTES [1]MR Brain w/ + w/o contrast; CATHI MONTIEL 03/20/2015 10:30 CDT Electronically Signed By: MARIAELENA GUTIÉRREZ DO On: 04/22/2015 12:01 PM Source: [facility] Cardpool Document Id: [id number] documented in this encounter Nursing Notes Mariaelena Gutiérrez D.O. - 04/22/2015 11:30 AM CDT Ambulatory Patient Education The following Patient Education Materials have been given to the patient: Patient Education Materials: Source: [facility] Cardpool Document Id: [id number] documented in this encounter Miscellaneous Notes Miscellaneous - Mariaelena Gutiérrez D.O. - 04/22/2015 11:30 AM CDT Ambulatory Patient Summary [facility] [address], [place] [place], [place] [phone] Visit Information Name: PUNEET FRIED [facility] Number: [id number] Current Date: 04/22/2015 11:30:34 Physicians Attending Provider: MARIAELENA GUTIÉRREZ DO Primary Care Provider: ALISON LOREDO PA-C FARIHA PUNEET ALVARADO has been given the following list of follow-up instructions, medication list, and patient education materials: Follow-up Instructions With: Address: When: MARIAELENA GUTIÉRREZ [address] [place] [address] [place] [address] [employer] (1) In 3 months 07/22/2015 Comments: Do [...] if needed. This is a CHANGE Routedto [place] [address] NEHEMIAH OROSCO [phone] topiramate (topiramate 25 mg oral tablet) 2 Tablet(s), Oral, once a day 1 tab at bedtime x 3 days, then 1 2x day x 3 days, then 1 in AM and 2 HS x 3 days, then 2 tabs 2x day New Routed to [place] [address] [place]OSCO [id number] Stop Taking [...] Youll be asked for your [facility] number which you can find at the top of this document. Your Goals/Additional instructions: Source: [facility] POWERCHART Document Id: [id number] Miscellaneous - Mariaelena Gutiérrez D.O. - 04/22/2015 11:30 AM CDT Ambulatory Discharge Medication List [facility] [address], [address] [place], [place] [phone] Visit Information Name: PUNEET FRIED [facility] Number: [id number] Visit Date: 04/22/2015 11:30:32 Attending [...] if needed. This is a CHANGE Rout[address] [place] [address] [place]IAH OROSCO [phone] topiramate (topiramate 25 mg oral tablet) 2 Tablet(s), Oral, once a day 1 tab at bedtime x 3 days, then 1 2x day x 3 days, then 1 in AM and 2 HS x 3 days, then 2 tabs 2x day New Routed to [place] [address] [place]MIAH OROS[place] [phone] Stop Taking the Following Medications: EPINEPHrine (EpiPen [...] DO Signed On:22-APR-2015 11:29:21 Additional Information: Source: [facility] POWERCHART Document Id: [id number] Miscellaneous - Sima Mccormick, LiorPBrittaneyN. 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 : No SIMA MCCORMICK LPN - 04/22/2015 10:39 CDT Subjective Pain Symptoms : Yes SIMA MCCORMICK LPN - 04/22/2015 10:39 CDT Pain Scale Pain Scale Verbal 0-10 : Open SIAM MCCORMICK LPN - 04/22/2015 10:39 CDT Pain [...] MCCORMICK LPN - 04/22/2015 10:39 CDT Source: [facility] Document Id: [id number] CDT!54 documented in this encounter Plan of Treatment Scheduled Procedures Name Priority Associated Diagnoses Date/Time COLONOSCOPY Diarrhea documented as of this encounter Visit Diagnoses Not on filedocumented in this encounter Additional Health Concerns Assessment Noted Time PHQ-9 Depression Total Score: 11 12/13/2014 9:50 AM CD T documented as of this encounter
--- OUTSIDE RECORDS SUMMARY | 2022-07-08 08:57 | XMS_ITS | Encounter Summary ---
:1985 Author Organization [facility] Address [address] [place] [address] Care Team Providers Name Role Phone Unavailable Primary Care Provider Unavailable Encounter Details Date Type Department Care Team Description 02/07/2016 Hospital Encounter HX [facility] Kyle Colmenares M .D., M.P.H. [address] [place], [place] [phone] (Wo rk) Social History [...] often do you attend jehovah's witness or baptism More than 4 time s [...] Only Visit Documentation : MRO review for [facility]. DEV CASPER LPN - 02/07/2016 11:27 CDT Source: [facility] POWERCHART Document Id: [id number] CDT!3 documented in this encounter Plan of Treatment Scheduled Procedures Name Priority Associated Diagnoses Date/Time COLONOSCOPY Diarrhea documented as of this encounter Visit Diagnoses Not on filedocumented in this encounter Additional Health Concerns Assessment Noted Time PHQ-9 Depression Total Score: 11 12/13/2014 9:50 AM CD T documented as of this encounter
--- OUTSIDE RECORDS SUMMARY | 2022-07-08 08:57 | XMS_ITS | Encounter Summary ---
:1985 Author Organization [facility] Address [address] [place] [address] Care Team Providers Name Role Phone Unavailable Primary Care Provider Unavailable Encounter Details Date Type Department Care Team Description 03/02/2015 Hospital Encounter HX [facility] Berny Llamas M.D. [address] [place], [place] [phone] (Wo rk) Social History [...] How often do you attend anglican or adventism More than 4 time s [...] 03/02/2015 10:41 PM CDT ED Discharge Instructions [address] [place] [address] Name: PUNEET FRIED Date of : 1985 12:00 AM Visit Date: 03/02/2015 10:12 PM [facility] Number: [id number] Address: [address] [place] [phone] Primary Care Provider: ALISON MONACO PA-C IMPORTANT: [facility] in [place] would like to thank you for allowing us to assist you with your healthcare needs. The following includes patient education materials and information regarding your injury/illness. Diagnosis: Strep Throat Pharyngitis Follow-Up Instructions: With: Address: When: ALISON MONACO [address] [place] [phone] Business (1) In 2 days 03/04/2015 Comments: [...] with strep throat more comfortable: Try soft, kmxr-dv-pyfuggw foods, such as soup, applesauce, and yogurt. [...] ?? Shortness of breath ?? Rash ?? [phone] Cecil Paez, [address] [place] [address], [place] [address]. All rights reserved. This information is not [...] if you dont have one. Go to [email or web address] and click on Create Your Account. Then, [...] nurse or physician. Patient Signature or Responsible Green Party/Relationship Date Time Provider Signature Date Time [...] ride home with a responsible alliance party. I, PUNEET FRIED , or responsible alliance party have received this information and my questions have been answered. I have discussed any challenges I see with this plan with the nurse or physician. Patient Signature or Responsible Green Party/Relationship Date Time Provider Signature Date Time This document has images extracted. Please consider using [employer] for all your patient education needs. Source: [facility] POWERCHART Document Id: [id number] Kavitha Saha R.N. - 03/02/2015 10:41 PM CDT ED Depart Summary [facility] Emergency Department Clinical Discharge Summary PERSON INFORMATION Name PUNEET FRIED Age 29 Years 1985 12:00 AM Sex Female Language [place] Citizen PCP ALISON MONACO PA-C Marital Status Single Visit Id Visit Reason Facial swelling; UC - Sore Throat; sore throat, facial swelling Specialty Enc Type Emergency Med Service Emergency Medicine Referred by Track Group [facility] ED Discharge 03/02/2015 10:35 PM Tracking Id [id number] Checkout 03/02/2015 10:35 PM Checkin 03/02/2015 10:12 PM Acuity 3 -Urgent Dispo Type * Discharged to Home or Self Care Arrival 03/02/2015 10:12 PM Reg Status Complete LOS 000 00:23 Address: [address] [place] [phone] Comment: PROVIDER INFORMATION Provider Role Provider Contact Time KAVITHA SAHA VICE PRESIDENT INDUSTRIAL RELATIONS Nurse 03/02/15 22:16 BERNY GARCIA MD ED Provider 03/02/15 22:17 DIAGNOSIS Strep Throat Pharyngitis Comment: PATIENT EDUCATION INFORMATION Instructions: Strep Throat Follow up: With: Address: When: ALISON MONACO [address] [place] [address] [phone] Business (5) In 2 days 03/04/2015 Comments: For recheck if not resolving Source: [facility] Document Id: [id number] documented in this encounter ED Notes Kavitha [...] SAHA RN - 03/02/2015 22:40 CDT Source: [facility] Document Id: [id number] CDT!9 Berny Garcia M.D. - 03/02/2015 10:18 [...] and with a positive rapid strep in [place] 2 days ago. She is on Keflex [...] Headache Abuse Tobacco Smoking NOS (305.1) Resolved ([id number]): Resolved on 01/03/2008 at 22 years.. Surgical history: Pap smear ([id number]) on 01/25/2013 at 27 Years. Pap smear ([id number]) on 01/25/2013 at 27 Years.. Family history: [...] Headache / V22.2 / Confirmed Resolved: / [id number]. Physical Examination Vital Signs: Vital Signs 03/02/2015 [...] Stable. Disposition: Discharged: to home. Prescriptions: Prescription Tool Maintenance Technician Pharmacy: Zithromax (Order Processing): 500 mg, PO, Once, Prescription Tool Maintenance Technician Pharmacy: Zithromax 250 mg oral tablet (Prescribe): [...] On: 03/02/2015 10:28 PM Source: [facility] FilmmortalCHART Document Id: [id number]} Kavitha Saha RBrittaneyN. - 03/02/2015 10:17 PM [...] Medical ; Code: 305.1 ; Contributor System: VideoplazaChart ; Last Updated: 12/12/2014 9:21 CDT ; [...] Medical ; Code: 784.0 ; Contributor System: VideoplazaChart ; Last Updated: 12/12/2014 9:11 CDT ; Life Cycle Status: Active ; Vocabulary: ICD-9-CM ; Comments: - Headache Headache Migraine (ICD-9-CM :346.90 ) Name of Problem: Headache Migraine ; Onset Date: 01/21/2012 ; Recorder: RABIA NATHAN MD; Confirmation: Confirmed ; Classification: Medical ; Code: 346.90 ; Contributor System: VideoplazaChart ; Last Updated: 12/12/2014 9:11 CDT ; [...] PNED ; Probability: 0 ; Diagnosis Code: [id number] UC - Sore Throat Date: 03/02/2015 ; Diagnosis Type: Reason For Visit ; Confirmation: Complaint of ; Clinical Dx: UC - Sore Throat ; Classification: Medical ; Clinical Service: Emergency medicine ; Code: PNED ; Probability: 0 ; Diagnosis Code: [id number] Triage Chief Complaint Description : diagnosed with strep on Tues, on Keflex and Prednisone. today left side of face swollen in am, feels like something lodged in throat, hurts to turn head to left Information Given By : Patient Accompanied By : Alone Mode of Arrival ED : Private vehicle, Ambulatory Track : Medical Languages : [place] Citizen Patient Informed of Triage Location : Emergency [...] Acuity : 3 -Urgent Tracking Group : [facility] ED KAVITHA SAHA SHRUTHI 03/02/2015 22:17 [...] SAHA RN - 03/02/2015 22:17 CDT Source: [facility] Document Id: [id number] CDT!84 documented in this encounter Miscellaneous Notes Miscellaneous - Conversion, Historical Provider Ser - 03/02/2015 10:35 PM CDT Coding Summary-Paper Based CODING DATE: 03/14/2015 FINAL [facility] STATUS: * Discharged to Home or Self Care PAYOR: [facility] ADMIT DX: 462 Acute Pharyngitis REASON [...] SORTO Date Saved: 03/14/2015 02:40 pm Source: [facility] Document Id: [id number] Miscellaneous - Kavitha Saha R.N. - 03/02/2015 [...] SAHA RN - 03/02/2015 22:40 CDT Source: [facility] Document Id: [id number] CDT!8 Miscellaneous - Kavitha Saha R.N. - 03/02/2015 10:12 PM CDT Facility Charge Ticket 2.0 11.0 DX Facility Charge Ticket 2.0 11.0 DX Entered On: 03/02/2015 22:41 CDT Performed On: 03/02/2015 22:12 CDT by KAVITHA SHAA RN Facility Charge Ticket 2.0 11.0 DX [...] Control : 5 Lynx Visit Level : 72069 Level 2 Treatments Prior to Arrival : Home treatments KAVITHA SAHA RN - 03/02/2015 22:40 CDT Source: [facility] Document Id: [id number] CDT!18 documented in this encounter Plan of Treatment Scheduled Procedures Name Priority Associated Diagnoses Date/Time COLONOSCOPY Diarrhea documented as of this encounter Visit Diagnoses Not on filedocumented in this encounter Additional Health Concerns Assessment Noted Time PHQ-9 Depression Total Score: 11 12/13/2014 9:50 AM CD T documented as of this encounter
--- OUTSIDE RECORDS SUMMARY | 2022-07-08 08:57 | XMS_ITS | Encounter Summary ---
:1985 Author Organization [facility] Address [address] [place] [address] Care Team Providers Name Role Phone Unavailable Primary Care Provider Unavailable Encounter Details Date Type Department Care Team Description 11/09/2016 Hospital Encounter HX [facility] Ashwin Bundy P.ACalistaCBrittaney [address] [place], [place] [phone] (Wo rk) Social History Tobacco Use Types [...] How often do you attend gnosticist or scientology More than 4 time s [...] convenient for you! From: PUNEET CLAYTON To: [facility] (GAS UTILITY WORKER) Sent: 11/16/2016 11:13 a.m. CDT Subject: RE: [...] hour appointment. Please call the clinic in [place], talk with Tejal in [facility] to schedule! talk soon! Leonora Villaseñor Source: [facility] Direct Document Id: [id number] Electronically signed by Conversion, [facility] Validation Intern [id number] at 02/02/2017 2:11 AM CDT Miscellaneous - [...] hour appointment. Please call the clinic in [place], talk with Tejal in [facility] to schedule! talk soon! Leonora Villaseñor Source: [facility] Direct Document Id: [id number] Electronically signed by Conversion, [facility] Validation Intern [id number] at 02/02/2017 2:11 AM CDT documented in [...] Performed At Patho logist Time Signature Beta-HCG, 44856.0 <=4.9 IUL POWERCHART Quantitative, (H) S Comment: [...]
--- OUTSIDE RECORDS SUMMARY | 2022-07-08 08:57 | XMS_ITS | Encounter Summary ---
:1985 Author Organization [facility] Address [address] [place] [address] Care Team Providers Name Role Phone Unavailable Primary Care Provider Unavailable Encounter Details Date Type Department Care Team Description 10/12/[address] [facility] Maureen Hooker, BUZZSAW OPERATOR, C.N.P., D. N.P. [address] [place] [address] (Wo rk) Social History Tobacco [...] How often do you attend adventist or baptist More than 4 time s [...] Comments Blood Pressure 116/78 10/12/2016 8:36 AM OYSTER WASHER Pulse 74 10/12/2016 8:36 AM OYSTER WASHER Temperature - - Respiratory Rate 16 10/12/2016 8:36 AM OYSTER WASHER Oxygen Saturation - - Inhaled Oxygen Concentration - - Weight - - Height 157 cm (5' 1.81) 10/12/2016 8:36 AM OYSTER WASHER Body Mass Index - - documented in [...] discomfort, but has not tried anything else esux-dae-plipfhr for symptoms. No fever or chills. No [...] Ordered: OV Est Pt Level 3 - 15603 - 15 min Rapid Strep Confirmation 2. [...] AM Source: [facility] POWERCHART Document Id: [id number] ER WASHER documented in this encounter Miscellaneous Notes Miscellaneous - Rylee Hooker APRN, C.N.P., D.N.P. - 10/13/2016 11:16 AM OYSTER WASHER Results Notification Document Contains Addenda Addendum by CATRACHO NAZARIO PA-C on October 13, 2016 11:21 OYSTER WASHER Discussed with patient and order for ENT was sent for patient. From: RYLEE HOOKER APRN CBrittaneyNJud, Priti.N.P Sent: 10/13/2016 11:16:43 OYSTER WASHER Show up: 10/13/2016 11:11:00 OYSTER WASHER Subject: Results Notification Patient was contact that [...] deferred this question to her PCP, HENOK uRdd - patient will contact Catracho to see if this is a good idea. Results: Date Result Type Ind Result Name MBO POS Rapid Strep Confirmation Source: [facility] POWERCHART Document Id: [id number] ER WASHER Miscellaneous - Jude Cardona L.P.N. - 10/12/2016 8:36 AM CST Adult Pocket Creaser Intake/History Adult Pocket Creaser Intake/History Entered On: 10/12/2016 8:37 OYSTER WASHER Performed On: 10/12/2016 8:36 OYSTER WASHER by JUDE CARDONA LPN Intake Chief Complaint [...] inch(es)) JUDE CARDONA LPN - 10/12/2016 8:36 OYSTER WASHER General Info Languages : Bulgarian Is Patient Female and 13-50 no hysterectomy : Yes Status : Patient denies Are you ? : No JUDE CARDONA LPN - 10/12/2016 8:36 OYSTER WASHER Subjective Pain Symptoms : Yes WEST CARDONANADIA Purdy LPN - 10/12/2016 8:36 OYSTER WASHER Pain Scale Pain Scale Verbal 0-10 : Open JUDE CARDONA JEANETTE 10/12/2016 8:36 OYSTER WASHER Pain Pain Assessment Grid Pain 1 Location : Throat Laterality : Bilateral Intensity : 3 WEST CARDONANADIA Purdy COATER SMOKING PIPE 10/12/2016 8:36 OYSTER WASHER Dependent Habits Exposure to Tobacco Smoke : Patient smokes Smoking Status : Current every day smoker Tobacco 2A : Yes Tobacco Use/Currently Using : Yes Tobacco Use/Last 30 Days : Yes Tobacco Use/Last 12 months : Yes Type : Cigarettes: Less than 20 per day Tobacco Use/Advised to Quit : Yes JUDE CARDONA LPN 10/12/2016 8:36 OYSTER WASHER Caffeine Use Grid Caffeine Use : Current Type : Coffee, Soft drinks Frequency : Occasionally JUDE CARDONA LPN 10/12/2016 8:36 OYSTER WASHER Recreational Drug Use Grid Drug Use : None JUDE CARDONA LPN 10/12/2016 8:36 OYSTER WASHER Source: [facility] POWERCHART Document Id: [id number] OYSTER WASHER!46 ER WASHER documented in this encounter Plan of Treatment Scheduled Procedures Name Priority Associated Diagnoses Date/Time COLONOSCOPY Diarrhea documented as of this encounter Procedures Procedure Name Priority Date/Time Associated Diagnosis Comme nts RAPID STREP A Routine 10/12/2016 8:15 AM Results for this SCREEN OYSTER WASHER procedure are i n the results section. RAPID STREP A Routine 10/12/2016 8:15 AM Results for this SCREEN OYSTER WASHER procedure are i n the results section. documented in this encounter Results (ABNORMAL) Rapid Strep A Screen (10/12/2016 8:15 AM OYSTER WASHER) [facility] Method Time Signature HXRapid Strep (POSITIVE) POWERCHART Confirmation HXPre Pending POWERCHART HXFinal POS POWERCHART HXFinal [facility] POWERCHART [facility] [id number] Specimen Anatomical Collection Method Collection Time Receive d Time (Source) Location / / Volume Laterality Throat 10/12/2016 8:15 AM 7 8:15 OYSTER WASHER AM OYSTER WASHER Marlny Crocker APRN.N.P., D.N.P. LAB MICROBIOLOGY - GENERAL ORDERABLES Performing Organization Address City/State/ZIP Code Phon e Number POWERCHART Rapid Strep A Screen (10/12/2016 8:15 AM OYSTER WASHER) [facility] gist Method Time Signature HXStrep A POWERCHART Screen Rapid HXFinal Negative for POWERCHART Strep Group A by rapid screen. HXFinal Culture POWERCHART confirmation to follow. Specimen (Source) Anatomical Collection Method Collection Time Re ceived Time Location / / Volume Laterality Throat 10/12/2016 8:15 AM OYSTER WASHER Marlyn Crocker APRN.N.P., D.N.P. LAB MICROBIOLOGY - GENERAL ORDERABLES Performing Organization Address City/[facility] Code Phon e Number POWERCHART documented in this encounter Visit Diagnoses Not on filedocumented in this encounter Additional Health Concerns Assessment Noted Time PHQ-9 Depression Total Score: 11 12/13/2014 9:50 AM CD T documented as of this encounter
--- OUTSIDE RECORDS SUMMARY | 2022-07-08 08:57 | XMS_ITS | Encounter Summary ---
:1985 Author Organization [facility] Address [address] [place] [address] Care Team Providers Name Role Phone Unavailable Primary Care Provider Unavailable Encounter Details Date Type Department Care Team Description 03/20/2015 Hospital Encounter [facility]X [facility] Barbra Yancey M.D. [address] [place] [phone] (Wo rk) Social History Tobacco Use [...] How often do you attend denominational or jewish More than 4 time s [...] Summary-Paper Based CODING DATE: 03/28/2015 FINAL [facility] STATUS: * Discharged to [...] ZENG Date Saved: 03/28/2015 07:42 am Source: [employer] POWERCHART Document Id: [id number] documented in this encounter Plan of Treatment Scheduled Procedures Name Priority Associated Diagnoses Date/Time COLONOSCOPY Diarrhea documented as of this encounter Visit Diagnoses Not on filedocumented in this encounter Additional Health Concerns Assessment Noted Time PHQ-9 Depression Total Score: 11 12/13/2014 9:50 AM CD T documented as of this encounter
--- OUTSIDE RECORDS SUMMARY | 2022-07-08 08:57 | XMS_ITS | Encounter Summary ---
:1985 Author Organization [facility] Address [address] [place] [address] Care Team Providers Name Role Phone Unavailable Primary Care Provider Unavailable Encounter Details Date Type Department Care Team Description 01/15/2016 Hospital Encounter HX [facility] Kyle Colmenares M .D., M.P.H. [address] [place], [place] [phone] (Wo rk) Social History [...] How often do you attend yazdanism or jew More than 4 time s [...] BEAN LPN - 01/15/2016 10:12 CDT Source: [facility] POWERCHART Document Id: [id number] CDT!3 documented in this encounter Plan of Treatment Scheduled Procedures Name Priority Associated Diagnoses Date/Time COLONOSCOPY Diarrhea documented as of this encounter Visit Diagnoses Not on filedocumented in this encounter Additional Health Concerns Assessment Noted Time PHQ-9 Depression Total Score: 11 12/13/2014 9:50 AM CD T documented as of this encounter
--- OUTSIDE RECORDS SUMMARY | 2022-07-08 08:57 | XMS_ITS | Encounter Summary ---
:1985 Author Organization [facility] Address [address] [place] [address] Care Team Providers Name Role Phone Unavailable Primary Care Provider Unavailable Encounter Details Date Type Department Care Team Description 03/22/2015 Hospital Encounter [facility] Barbra Vora M.D. [address] [place] [phone] (Wo rk) Social History Tobacco Use [...] How often do you attend faith or synagogue More than 4 time s [...] restricted diffusion or infarct. Marcio Briceno MD. [id number] 20-Mar-2015 10:52 [1] IMPRESSION/REPORT/PLAN 1. Cyst Brain [...] Ordered: OV Est Pt Level 2 - 00564 - 10 min FOOTNOTES [1]MR Brain w/ + w/o contrast; CATHI MONTIEL 03/20/2015 10:30 CDT Electronically Signed By: LEONORA NATHAN MD On: 03/22/2015 10:41 AM Source: [facility] POWERCHART Document Id: [id number] documented in this encounter Miscellaneous Notes Miscellaneous - Francesca Lzoada LBrittaneyPBrittaneyNBrittaney - 03/22/2015 8:03 AM CDT Health [...] : Coffee, Soft drinks Frequency : Occasionally FRANCESAC LOZADA LPN - 03/22/2015 8:03 CDT Recreational Drug Use Grid Drug Use : None FRANCESCA LOZADA LPN 03/22/2015 8:03 CDT Psychosocial Domestic Abuse Concerns : None Behavioral Health Screen/Safety Assmt : No Latter-Day Preference : No qualifying data available. FRANCESCA LOZADA LPN - 03/22/2015 8:03 CDT Advance Directive Advanced Directives : No Advance Directive Additional Information : No FRANCESCA LOZADA LPN - 03/22/2015 8:03 CDT Educ Needs Learning Style Preference Adult Grid Patient : None Family : None FRANCESCA LOZADA LPN - 03/22/2015 8:03 CDT Source: [facility] POWERCHART Document Id: [id number] CDT!35 Miscellaneous - Francesca Lozada L.P.N. - 03/22/2015 7:59 AM CDT Adult Final Armature Tester Intake/History Adult Final Armature Tester Intake/History Entered On: 03/22/2015 8:02 CDT Performed [...] 03/22/2015 7:59 CDT General Info Languages : Gibraltarian Is Patient Female and 13-50 no hysterectomy [...] Cigarette Use Packs/Day : 0.5 FRANCESCA LOZADA [facility] - 03/22/2015 7:59 CDT Alcohol Use : No FRANCESCA LOZADA [facility] - 03/22/2015 7:59 CDT Caffeine Use Grid Caffeine Use : Current Type : Coffee, Soft drinks Frequency : Occasionally FRANCESCA LOZADA [facility] - 03/22/2015 7:59 CDT Recreational Drug Use Grid Drug Use : None FRANCESCA LOZADA [facility] - 03/22/2015 7:59 CDT Source: [employer] Document Id: [id number] CDT!51 documented in this encounter Plan of Treatment Scheduled Procedures Name Priority Associated Diagnoses Date/Time COLONOSCOPY Diarrhea documented as of this encounter Visit Diagnoses Not on filedocumented in this encounter Additional Health Concerns Assessment Noted Time PHQ-9 Depression Total Score: 11 12/13/2014 9:50 AM CD T documented as of this encounter
--- OUTSIDE RECORDS SUMMARY | 2022-07-08 08:57 | XMS_ITS | Encounter Summary ---
:1985 Author Organization [facility] Address [address] [place] [address] Care Team Providers Name Role Phone Unavailable Primary Care Provider Unavailable Encounter Details Date Type Department Care Team Description 02/15/2016 Hospital Encounter HX [facility] Renny Castro M.D. [address] [place], [place] [address] (Wo rk) Social History [...] How often do you attend pentecostalism or holiness More than 4 time s [...] Acuna M.D. - 02/15/2016 8:56 AM CDT [id number] CHIEF COMPLAINT/REASON FOR VISIT Sore throat. HISTORY [...] ACUNA MD On: 02/18/2016 05:30 PM Source: [facility] MHSDOLBEYNONRADSYS Document Id: [id number] documented in this encounter Miscellaneous Notes Miscellaneous - Timbo Acuna M.D. - 02/15/2016 10:25 AM CDT Work Excuse February 15, 2016 PUNEET CLAYTON [address] [facility] [id number] Dear PUNEET CLAYTON, You were examined in [...] 02/16/2016 Notes: _ Sincerely, TIMBO ACUNA [address] [place] [address] Electronic Signature Electronically Signed By: TIMBO ACUNA MD On: February 15, 2016 This document has images extracted. Source: [facility] POWERCHART Document Id: [id number] Electronically signed by Roland [facility] Radiology Specialist [id number] at 01/16/2017 7:03 PM CDT Miscellaneous - Craig Tolentino, L.P.N. - 02/15/2016 9:21 AM CDT Adult Negative Developer Intake/History Adult Negative Developer Intake/History Entered On: 02/15/2016 9:24 CDT Performed [...] ft 2 inch(es), 62 inch(es)) CRAIG TOLENTINO [facility] - 02/15/2016 9:21 CDT General Info Information Given By : Patient Preferred Communication Mode : Verbal Languages : Qatari Is Patient Female and 13-50 no hysterectomy : Yes Status : Patient denies Are you ? : No CRAIG TOLENTINO [facility] - 02/15/2016 9:21 CDT Subjective Pain Symptoms : Yes CRAIG TOLENTINO [facility] - 02/15/2016 9:21 CDT Pain Scale Pain Scale Verbal 0-10 : Open CRAIG TOLENTINO [facility] - 02/15/2016 9:21 CDT Pain Pain Assessment Grid Pain 1 Location : Throat Intensity : 8 CRAIG TOLENTINO [facility] - 02/15/2016 9:21 CDT Dependent Habits Exposure to Tobacco Smoke : Patient smokes Smoking Status : Current every day smoker Tobacco 2A : Yes Tobacco Use/Currently Using : Yes Tobacco Use/Last 30 Days : Yes Tobacco Use/Last 12 months : Yes Type : Cigarettes: Less than 20 per day Tobacco Use/Advised to Quit : Yes Alcohol Use : No CRAIG TOLENTINO [facility] - 02/15/2016 9:21 CDT Caffeine Use Grid Caffeine Use : Current Type : Coffee, Soft drinks Frequency : Occasionally CRAIG TOLENTINO [facility] - 02/15/2016 9:21 CDT Recreational Drug Use Grid Drug Use : None CRAIG TOLENTINO [facility] - 02/15/2016 9:21 CDT Source[facility] Document Id: [id number] CDT!49 documented in this encounter Plan of [...] Strep A Screen (02/15/2016 9:27 AM CDT) [facility] gist Method Time Signature HXStrep [...]
--- OUTSIDE RECORDS SUMMARY | 2022-07-08 08:57 | XMS_ITS | Encounter Summary ---
:1985 Author Organization [facility] Address [address] [place] [address] Care Team Providers Name Role Phone Unavailable Primary Care Provider Unavailable Encounter Details Date Type Department Care Team Description 11/16/2016 Hospital Encounter HX [facility] ME Keith Nguyen M.D. [address] [place] [phone] (Wo rk) Social History Tobacco [...] How often do you attend confucianism or druze More than 4 time s [...] Name MBO Review Rapid Strep A Source: [facility] BCKSTGR Document Id: [id number] Electronically signed by Conversion, [facility] Wastewater Treatment Operator [id number] at 02/02/2017 2:11 AM CDT documented in [...] Strep A Screen (11/16/2016 9:30 AM CDT) [facility] Method Time Signature HXRapid Strep POWERCHART Confirmation HXPre Pending POWERCHART HXFinal NEG POWERCHART HXFinal [facility] [id number] Specimen Anatomical Collection Method Collection Time Receive d Time (Source) Location / / Volume Laterality Throat 11/16/2016 9:30 AM 03/27/201 7 9:30 CDT AM CDT Keith Nguyen M.D. LAB MICROBIOLOGY - GENERAL O [facility] Performing Organization Address City/State/ZIP Code Phon e Number POWERCHART Rapid Strep A Screen (11/16/2016 9:30 AM CDT) [facility] Method Time Signature HXStrep A POWERCHART Screen Rapid HXFinal Negative for POWERCHART Strep Group A by rapid screen. HXFinal Culture POWERCHART confirmation to follow. Specimen (Source) Anatomical Collection Method Collection Time Re ceived Time Location / / Volume Laterality Throat 11/16/2016 9:30 AM CDT Keith Nguyen M.D. LAB MICROBIOLOGY - GENERAL O [place] Performing Organization Address City/State/[facility] Code Phon e Number POWERCHART documented in this encounter Visit Diagnoses Not on filedocumented in this encounter Additional Health Concerns Assessment Noted Time PHQ-9 Depression Total Score: 11 12/13/2014 9:50 AM CD T documented as of this encounter
--- OUTSIDE RECORDS SUMMARY | 2022-07-08 08:58 | XMS_ITS | Encounter Summary ---
:1985 Author Organization [facility] Address [address] [place] [address] Care Team Providers Name Role Phone Unavailable Primary Care Provider Unavailable Encounter Details Date Type Department Care Team Description 03/13/2014 Hospital Encounter [facility] Michelle Bear M.D. [address] [place] [address] (Wo rk) Social History Tobacco Use Types [...] How often do you attend moravian or mosque More than 4 time s [...] Bear M.D. - 03/13/2014 1:30 PM CDT [id number] A 28-year-old female is here to establish care. She lives in [place] with the father of her son, who is 6 years old. She states they have been together for about 8 years. They are thinking about perhaps another this fall. She delivered here in [place] [address] Kinney. Her [...] I would like to refer her to [place], to the bariatric program. I believe that [...] BEAR MD On: 03/14/2014 12:48 PM Source: [facility] MHSDOLBEYNONRADSYS Document Id: [id number] documented in this encounter Miscellaneous Notes Miscellaneous - Nicolette Moise, JOSEFA, C.N.P. - 05/28/2014 2:00 PM CDT Ambulatory Patient Summary [facility] [address], [address] [place], [place] [id number] Visit Information Name: PUNEET FRIDE [facility] Number: [id number] Current Date: 05/28/2014 14:00:54 [...] appointment detail needed. Your Goals/Additional instructions: Source: [facility] POWERCHART Document Id: [id number] Miscellaneous - Nicolette Moise APRN, C.N.P. - 05/28/2014 2:00 PM CDT Ambulatory Discharge Medication List [facility] [address] [place], [place] [phone] Visit Information Name: PUNEET FRIED [facility] Number: [id number] Visit Date: 05/28/2014 14:00:53 [...] Signed By: Signed On: Additional Information: Source: [facility] POWERCHART Document Id: [id number] Miscellaneous - Jory Coppola L.P.N. - 03/14/2014 [...] COPPOLA LPN - 03/14/2014 8:25 CDT Source: [employer] Document Id: [id number] CDT!13 Miscellaneous - Jory Coppola L.P.N. - 03/13/2014 1:50 PM CDT Adult Orthopedic Tech Intake/History Adult Orthopedic Tech Intake/History Entered On: 03/13/2014 13:53 CDT Performed [...] Given By : Patient Languages : Icelandic JORY COPPOLA LPN - 03/13/2014 13:50 CDT [...] COPPOLA LPN - 03/13/2014 13:50 CDT Source: [employer] Document Id: [id number] CDT!37 Miscellaneous - Jory Coppola L.P.N. - [...] Cigarettes Cigarette Use Packs/Day : 0.5 JORY COPPLOA LPN - 03/13/2014 13:49 CDT Alcohol Use [...] CDT Psychosocial Domestic Abuse Concerns : None Anabaptism Preference : No qualifying data available. ANAT JORY Esther JEANETTE - 03/13/2014 13:49 CDT Advance Directive Advanced Directives : No JORY COPPOLA LPN - 03/13/2014 13:49 CDT Educ Needs Learning Style Preference Adult Grid Patient : None Family : None JORY COPPOLA LPN - 03/13/2014 13:49 CDT [facility] Document Id: [id number] CDT!40 documented in this encounter Plan of Treatment Scheduled Procedures Name Priority Associated Diagnoses Date/Time COLONOSCOPY Diarrhea documented as of this encounter Visit Diagnoses Not on filedocumented in this encounter Additional Health Concerns Assessment Noted Time PHQ-9 Depression Total Score: 11 03/14/2014 8:25 AM CD T documented as of this encounter
--- OUTSIDE RECORDS SUMMARY | 2022-07-08 08:58 | XMS_ITS | Encounter Summary ---
:1985 Author Organization [facility] Address [address] [place] [address] Care Team Providers Name Role Phone Unavailable Primary Care Provider Unavailable Encounter Details Date Type Department Care Team Description 11/01/2014 Hospital Encounter [facility] Maureen Berman P.A.-C., M.S. [address] [place] [phone] (Wo rk) Social History Tobacco Use Types [...] How often do you attend hindu or sabianist More than 4 time s [...] P.A.-C., M.S. - 11/01/2014 9:05 AM CDT [id number] CHIEF COMPLAINT/REASON FOR VISIT Headache management. HISTORY [...] MONACO PA-C On: 11/05/2014 01:01 PM Source: [facility] MHSDOLBEYNONRADSYS Document Id: [id number] documented in this encounter Miscellaneous Notes Miscellaneous - Rosalind Berman P.A.-C., M.S. - 11/01/2014 10:51 AM CDT Normal Results Letter 01 November 2014 PUNEET FRIED [address] [place] [id number] Dear PUNEET FRIED, I am pleased to [...] 150 - 450 Sincerely, ROSALIND MONACO [address] [place] [address] Electronic Signature Electronically Signed By: ROSALIND MONACO PA-C On: 01 November 2014 This document has images extracted. Source: [facility] POWERCHART Document Id: [id number] Electronically signed by Conversion, [facility] Telephone Exchange Operator [id number] at 01/18/2017 5:27 PM CDT Miscellaneous - Conversion, Historical Provider Ser - 11/01/2014 9:12 AM CDT Adult Signal Supervisor Intake/History Adult Signal Supervisor Intake/History Entered On: 11/01/2014 9:14 CDT Performed On: 11/01/2014 9:12 CDT by FRANCIEИРИНАBARBARA Nena [facility] Intake Chief Complaint : headache management [...] Mass Index : 57.68 kg/m2 BARBARA VALLES [facility] - 11/01/2014 9:12 CDT General Info Information Given By : Patient Languages : Samoan Is Patient Female and 13-50 no hysterectomy : Yes Status : Patient denies Are you ? : No BARBARA VALLES Nena [facility] - 11/01/2014 9:12 CDT Subjective Pain Symptoms : Yes FRANCIEИРИНАBARBARA Nena [facility] - 11/01/2014 9:12 CDT Pain Scale Pain Scale Verbal 0-10 : Open BARBARA VALLES Nena [facility] - 11/01/2014 9:12 CDT Pain Pain Assessment Grid Pain 1 Location : Head Intensity : 8 BARBARA VALLES Nena [facility] - 11/01/2014 9:12 CDT Dependent Habits Tobacco Use/Currently Using : Yes Tobacco Use/Advised to Quit : Yes Exposure to Tobacco Smoke : Patient smokes Smoking Status : Current every day smoker BARBARA VALLES Nena [facility] - 11/01/2014 9:12 CDT Tobacco Use Grid Type : Cigarettes Cigarette Use Packs/Day : 0.5 Last Use : 04/30/2014 FRANCIEBARBARA GIFFORD [facility] - 11/01/2014 9:12 CDT Caffeine Use Grid Caffeine Use : Current Type : Coffee, Soft drinks Frequency : Daily BARBARA VALLES [facility] - 11/01/2014 9:12 CDT Recreational Drug Use Grid Drug Use : None BARBARA VALLES [facility] - 11/01/2014 9:12 CDT ID Screen Travel Within Last 21 Days : No Contact with someone with Ebola : No BARBARA VALLES [facility] - 11/01/2014 9:12 CDT Source: [facility] POWERCHART Document Id: [id number] CDT!50 documented in this encounter Plan of [...] X109L Erythrocytes 4.74 3.90 - 5.03 POWERCHART U4632T HX RDW 13.2 11.9 - 15.5 POWERCHART [...]
--- OUTSIDE RECORDS SUMMARY | 2022-07-08 08:58 | XMS_ITS | Encounter Summary ---
:1985 Author Organization [facility] Address [address] [place] [address] Care Team Providers Name Role Phone Unavailable Primary Care Provider Unavailable Encounter Details Date Type Department Care Team Description 01/21/2012 Hospital Encounter [facility] [address] [place] [phone] (Wo rk) Social History Tobacco Use [...] How often do you attend shinto or bahai More than 4 time s [...] Farias M.D. - 01/21/2012 12:00 AM CDT [id number] CHIEF COMPLAINT/REASON FOR VISIT Headache. HISTORY OF [...] has symmetric and coordinated finger tapping and xman-dw-wzpc rubbing. Strength is 5 out of 5 [...] NATHAN MD On: 01/26/2012 07:59 AM Source: [facility] MHSDOLBEYNONRADSYS Document Id: [id number] documented in this encounter Miscellaneous Notes Miscellaneous - Leonora Farias M.D. - 01/21/2012 9:53 AM CDT Ambulatory Depart Summary [address] [address] Visit Information Name: PUNEET FRIED Visit Date: [...] your provider for clarification. Additional Information: Source: [facility] POWERCHART Document Id: [id number] Miscellaneous - Leonora Farias M.D. - 01/21/2012 9:53 AM CDT Ambulatory Patient Summary [address] [place] [address] Visit Information Name: PUNEET FRIED Current Date: [...] No Appointments found Your Goals/Additional instructions: Source: [facility] POWERCHART Document Id: [id number] Miscellaneous - Bessy Herrera, LBrittaneyP.N. - 01/21/2012 9:21 AM CDT Adult Shadow Graph Weight Operator Intake/History Adult Shadow Graph Weight Operator Intake/History Entered On: 01/21/2012 9:28 CDT Performed [...] Preferred Communication Mode : Verbal Languages : Guinean BESSY HERRERA LPN, 01/21/2012 9:21 CDT Subjective [...] Status : Current every day smoker BESSY EHRRERA LPN, 01/21/2012 9:21 CDT Tobacco Use Grid [...] ACOSTA; Reviewed Date: 01/12/2012 18:06 CDT Source: [employer] Document Id: [id number] documented in this encounter Plan of Treatment Scheduled Procedures Name Priority Associated Diagnoses Date/Time COLONOSCOPY Diarrhea documented as of this encounter Visit Diagnoses Not on filedocumented in this encounter
--- OUTSIDE RECORDS SUMMARY | 2022-07-08 08:58 | XMS_ITS | Encounter Summary ---
:1985 Author Organization [facility] Address [address] [place] [address] Care Team Providers Name Role Phone Unavailable Primary Care Provider Unavailable Encounter Details Date Type Department Care Team Description 01/12/2012 [facility] Gildardo Marvin M.D. [address] [place] [phone] (Wo rk) Social History Tobacco Use [...] How often do you attend pentecostal or christian More than 4 time s [...] Marvin M.D. - 01/12/2012 12:00 AM CDT [id number] IMPRESSION/REPORT/PLAN 1. Eustachian tube dysfunction. 2. Headache. [...] MARVIN MD On: 01/15/2012 10:03 AM Source: [facility]SDOLBEYNONRADHU[facility] Document Id: [id number] documented in this encounter Miscellaneous Notes Miscellaneous - Vinicio Marvin M.D. - 01/12/2012 6:46 PM CDT Ambulatory Depart Summary [address] [address] Visit Information Name: PUNEET FRIED Visit Date: [...] your provider for clarification. Additional Information: Source: [facility] POWERCHART Document Id: [id number] Miscellaneous - Vinicio Marvin M.D. - 01/12/2012 6:46 PM CDT Ambulatory Patient Summary [address] [address] Visit Information Name: PUNEET FRIED Current Date: [...] No Appointments found Your Goals/Additional instructions: Source: [facility] POWERCHART Document Id: [id number] Miscellaneous - Josephine Acosta L.PBrittaneyN. - 01/12/2012 [...] KARLA JOSEPHINE - 01/12/2012 18:07 CDT Source: [facility]CH[facility] Document Id: [id number] CDT!24 Miscellaneous - Josephine Acosta L.P.N. - 01/12/2012 6:01 PM CDT Adult Reproduction Specialist Intake/History Adult Reproduction Specialist Intake/History Entered On: 01/12/2012 18:06 CDT Performed [...] ACOSTA - 01/12/2012 18:01 CDT Allergy Source: [facility] Document Id: [id number] CDT!33 documented in this encounter Plan of Treatment Scheduled Procedures Name Priority Associated Diagnoses Date/Time COLONOSCOPY Diarrhea documented as of this encounter Visit Diagnoses Not on filedocumented in this encounter
--- OUTSIDE RECORDS SUMMARY | 2022-07-08 08:58 | XMS_ITS | Encounter Summary ---
:[address] [facility] Address [address] [place] [address] Care Team Providers Name Role Phone Unavailable Primary Care Provider Unavailable Encounter Details Date Type Department Care Team Description 03/24/2012 Hospital Encounter [facility] [address] [place] [phone] (Wo rk) Social History Tobacco Use [...] Farias M.D. - 03/24/2012 12:00 AM CDT [id number] CHIEF COMPLAINT/REASON FOR VISIT Urinary frequency. HISTORY [...] Leonora Brito M.D./[facility] Electronically Signed By: LEONORA NATHAN MD On: 04/05/2012 10:30 AM Modified by and Electronically Signed by: LEONORA NATHAN MD On: 04/05/2012 10:29 AM Source: [facility] MHSDOLBEYNONRADSYS Document Id: [id number] documented in this encounter Miscellaneous Notes Miscellaneous - Leonora Farias M.D. - 03/24/2012 11:41 AM CDT Ambulatory Patient Summary [phone] [place] [address] Visit Information Name: PUNEET FRIED Current Date: [...] No Appointments found Your Goals/Additional instructions: Source: [facility] POWERCHART Document Id: [id number] Leonora Russell M.D. - 03/24/2012 11:41 AM CDT Ambulatory Depart Summary [address] [address] Visit Information Name: PUNEET FRIED Visit Date: [...] your provider for clarification. Additional Information: Source: [facility] [employer]CHART Document Id: [id number] Mimi Gaines L.P.N. - 03/24/2012 11:23 AM CDT Adult Conservation Enforcement Officer Intake/History Adult Conservation Enforcement Officer Intake/History Entered On: 03/24/2012 11:30 CDT Performed [...] Preferred Communication Mode : Verbal Languages : Iranian MIMI HERRERA LPN, RT - 03/24/2012 11:23 [...] ACOSTA; Reviewed Date: 01/21/2012 9:28 CDT Source: [facility] POWERCHART Document Id: [id number] documented in this encounter Plan of Treatment [...] Results Urine Microscopic (03/24/2012 11:34 AM CDT) [facility] Method Time Signature HXUr WBC 10-25 [...] POWERCHART Urinalysis, Routine (03/24/2012 11:34 AM CDT) [facility] Method Time Signature HXUr Color Yellow POWERCHART Appearance Slightly POWERCHART Cloudy Glucose Negative POWERCHART HXBILIRUBIN Negative POWERCHART Ketones, QL(U) Negative POWERCHART Specific 1.025 1.000 - POWERCHART [place], POCT, U 1.030 pH, POCT, Urine 5.5 [...]
--- OUTSIDE RECORDS SUMMARY | 2022-07-08 08:58 | XMS_ITS | Encounter Summary ---
:1985 Author Organization [facility] Address [address] [place] [address] Care Team Providers Name Role Phone Unavailable Primary Care Provider Unavailable Encounter Details Date Type Department Care Team Description 01/24/2015 - Hospital Encounter [facility]X [facility] ED Rizwan Dean M.D. 01/25/2015 [address] [place] [address] (Wo rk) Social History Tobacco [...] How often do you attend orthodoxy or mormon More than 4 time s [...] 01/25/2015 12:43 AM CDT ED Discharge Instructions [address] [place] [address] Name: PUNEET FRIED Date of : 1985 12:00 AM Visit Date: 01/24/2015 10:25 PM [facility] Number: [id number] Address: [address] [place] [phone] Primary Care Provider: ALISON MONACO PA-C IMPORTANT: [facility] [place] would like to thank you for allowing us to assist you with your healthcare needs. The following includes patient education materials and information regarding your injury/illness. Diagnosis: Angioedema Initial; Urticaria Allergic Follow-Up Instructions: With: Address: When: ALISON MONACO [address] [place] [id number] Business (1) Within As Needed Comments: Your [...] Colored fluid draining from the wound ?? [id number] [place] [address]. All rights reserved. This information is not intended as a substitute for professional medical care. Always follow your healthcare professional's instructions. Angioedema Angioedema (pronounced resrm-y-mlgix) is a sudden appearance of swollen patches [...] Trouble breathing ?? Severe abdominal pains ?? [id number], [place] [address]. All rights reserved. This information is not [...] a ride home with a responsible libertarian. IFARIHA AMANDA KAY , or responsible libertarian have [...] document has images extracted. Please consider using [employer] for all your patient education needs. Source: [facility] POWERCHART Document Id: [id number] Pati Shepard R.N. - 01/25/2015 12:43 AM CDT ED Depart Summary [facility] Emergency Department Clinical Discharge Summary PERSON INFORMATION Name PUNEET FRIED Age 29 Years 1985 12:00 AM Sex Female Language Uzbek PCP ALISON MONACO PA-C Marital Status Single Visit Id Visit Reason Insect bite and/or sting; ALLERGIC REACTION TO BUG BITE Specialty Enc Type Emergency Med Service Emergency Medicine Referred by Track Group [facility] ED Discharge 01/25/2015 12:35 AM Tracking Id [id number] Checkout 01/25/2015 12:35 AM Checkin 01/24/2015 10:25 PM Acuity 4 -Less Urgent Dispo Type * Discharged to Home or Self Care Arrival 01/24/2015 10:25 PM Reg Status Complete LOS 000 02:10 Address: [address] [place] [phone] Comment: PROVIDER INFORMATION Provider Role Provider Contact Time KAREY PENA PRODUCTION REPRODUCTION MANAGER Nurse 01/24/15 22:32 PATI SHEPARD RN ED Nurse 01/24/15 23:08 SLIM DEAN MD ED Provider 01/24/15 23:37 DIAGNOSIS Angioedema Initial; Urticaria Allergic Comment: PATIENT EDUCATION INFORMATION Instructions: ALLERGIC REACTION, Insect (General); ANGIOEDEMA Follow up: With: Address: When: ALISON MONACO [address] [place] [address] [phone] [place] (3) Within As Needed Comments: Source: [facility] POWERCHART Document Id: [id number] documented in this encounter ED Notes Pati [...] SHEPARD RN - 01/25/2015 0:40 CDT Source: [facility] [employer] Document Id: [id number] CDT!7 Slim Dean - 01/24/2015 11:36 PM [...] 300.4 / Confirmed Dysthymic disorder Resolved: / [id number]. Physical Examination Vital Signs: Vital Signs 01/24/2015 [...] Time 01/25/2015 00:35:00, to home. Prescriptions: Prescription Rim Fire Priming Operator Pharmacy: EpiPen Auto-Injector 0.3 mg injectable kit [...] DEAN MD On: 01/25/2015 12:36 AM Source: [facility] POWERCHART Document Id: [id number]} Karey Pena, R.N. - 01/24/2015 10:37 PM [...] Medical ; Code: V22.2 ; Contributor System: [facility] ; Last Updated: 01/21/2012 9:41 CDT ; Life Cycle Date: 01/12/2012 ; Life Cycle Status: Active ; Responsible Provider: GLEN ACOSTA; Vocabulary: ICD-9-CM Diagnoses(Active) Insect bite and/or sting Date: 01/24/2015 ; Diagnosis Type: Reason For Visit ; Confirmation: Complaint of ; Clinical Dx: Insect bite and/or sting ; Classification: Medical ; Clinical Service: Emergencymedicine ; Code: PNED ; Probability: 0 ; Diagnosis Code: [id number] Triage Chief Complaint Description : 29 year old female with complaints of a bug bite on the left side of the neck. Patient is having hot flashes and SOB at times. Bug bite patient around 0530pm tonight. Information Given By : Patient, Friend Accompanied By : Friend Mode of Arrival ED : Private vehicle Track : Medical Languages : Uzbek Treatments Prior to Arrival : None Are [...] PENA RN - 01/24/2015 22:37 CDT [facility] Document Id: [id number] CDT!53 documented in this encounter Miscellaneous Notes Miscellaneous - Pati Shepard R.N. - 01/25/2015 12:35 AM CDT Valuables/Belongings Valuables/Belongings Entered On: 01/25/2015 0:41 CDT Performed On: 01/25/2015 0:35 CDT by PATI SHEPARD RN Valuables/Belongings Valuables/Belongings Grid Valuables with Patient Clothes, Patient Valuables : Other: cellphone PATI SHEPARD RN - 01/25/2015 0:41 CDT Source: [facility] [employer] Document Id: [id number] CDT!5 Miscellaneous - Conversion, Historical Provider Ser - 01/25/2015 12:35 AM CDT Coding Summary-Paper Based CODING DATE: 02/07/2015 FINAL [facility] STATUS: * Discharged to Home or Self [...] ZENG Date Saved: 02/07/2015 11:40 am Source: [facility] [employer] Document Id: [id number] Miscellaneous - Pati Shepard R.N. - 01/25/2015 12:17 AM CDT Communication Note Communication Note Entered On: 01/25/2015 0:17 CDT Performed On: 01/25/2015 0:17 CDT by PATI SHEPARD RN Communication Assessment Communication Note : Feeling better. PATI SHEPARD RN - 01/25/2015 0:17 CDT [facility] Document Id: [id number] CDT!3 Miscellaneous - Pati Shepard R.N. - [...] Control : 2 Lynx Visit Level : 95152 Level 2 Treatments Prior to Arrival : None PATI SHEPARD RN - 01/25/2015 0:41 CDT Source: [employer] Document Id: [id number] CDT!18 documented in this encounter Plan of Treatment Scheduled Procedures Name Priority Associated Diagnoses Date/Time COLONOSCOPY Diarrhea documented as of this encounter Visit Diagnoses Not on filedocumented in this encounter Additional Health Concerns Assessment Noted Time PHQ-9 Depression Total Score: 11 12/13/2014 9:50 AM CD T documented as of this encounter
--- OUTSIDE RECORDS SUMMARY | 2022-07-08 08:58 | XMS_ITS | Encounter Summary ---
:1985 Author Organization [facility] Address [address] [place] [address] Care Team Providers Name Role Phone Unavailable [...] How often do you attend taoist or roman catholic More than 4 time [...] Magallanes, Ph.D. - 11/15/2012 12:00 AM CDT [id number] LETTER Carol Dowell Juarez [address] [place] [phone] November 15, 2012 Dear Carol: In reviewing my records, I realized that I have not seen you for sometime. I am writing, therefore, to determine if you are interested in continuing therapy and desire to schedule a new appointment. If you would like an appointment, please call our avionics engineer at [phone] or . Ifwe do not hear from you within two weeks, we will assume that your are not interested in scheduling further appointments. I look forward to hearing from you. Sincerely, Kaye Magallanes, Ph.D., L.P. Source: [facility] Document Id: [id number] Electronically signed by Conversion, [facility] Fire Production Operator [id number] at 01/18/2017 10:03 PM CDT documented in this encounter Plan of Treatment Scheduled Procedures Name Priority Associated Diagnoses Date/Time COLONOSCOPY Diarrhea documented as of this encounter Visit Diagnoses Not on filedocumented in this encounter
--- OUTSIDE RECORDS SUMMARY | 2022-07-08 08:58 | XMS_ITS | Encounter Summary ---
:1985 Author Organization [facility] Address [address] [place] [address] Care Team Providers Name Role Phone Unavailable [...] How often do you attend rastafarian or methodist More than 4 time s [...] Magallanes, Ph.D. - 04/15/2012 12:00 AM CDT [id number] LETTER Carol Dowell Juarez [address] [place] [phone] April 15, 2012 Dear Carol: Our records [...] to keep this appointment, please call the [facility] [place] [facility] as soon as possible at or toll-free to reschedule or cancel. We look forward to hearing from you. Thank you, [facility] [place] Source: [facility] RWHXTRANSXRTFSYS Document Id: [id number] documented in this encounter Plan of Treatment Scheduled Procedures Name Priority Associated Diagnoses Date/Time COLONOSCOPY Diarrhea documented as of this encounter Visit Diagnoses Not on filedocumented in this encounter
--- OUTSIDE RECORDS SUMMARY | 2022-07-08 08:58 | XMS_ITS | Encounter Summary ---
:1985 Author Organization [facility] Address [address] [place] [address] Care Team Providers Name Role Phone Unavailable Primary Care Provider Unavailable Encounter Details Date Type Department Care Team Description 05/28/2014 Hospital Encounter HX [facility] Jalen Nesbitt, JOSEFA, C.N.P., D. N.P. [address] [place] [address] (Wo rk) Social History Tobacco [...] How often do you attend yazdanism or christianity More than 4 time s [...] APRN, C.N.P. - 05/28/2014 2:27 PM CDT [id number] CHIEF COMPLAINT/REASON FOR VISIT Cough and cold [...] Pino/robb Electronically Signed By: JALEN NESBITT RN, STOCKROOM ATTENDANT On: 05/30/2014 08:27 AM Source: [facility] MHSDOLBEYNONRADSYS Document Id: [id number] documented in this encounter Miscellaneous Notes Miscellaneous - Jude Cardona L.P.N. - 05/28/2014 2:31 PM CDT Adult Strategic Procurement Manager Intake/History Adult Strategic Procurement Manager Intake/History Entered On: 05/28/2014 14:32 CDT Performed [...] 05/28/2014 14:31 CDT General Info Languages : Cambodian Is Patient Female and [...] CARDONA LPN - 05/28/2014 14:31 CDT Source: [employer] Document Id: [id number] CDT!39 documented in this encounter Plan of Treatment Scheduled Procedures Name Priority Associated Diagnoses Date/Time COLONOSCOPY Diarrhea documented as of this encounter Visit Diagnoses Not on filedocumented in this encounter Additional Health Concerns Assessment Noted Time PHQ-9 Depression Total Score: 18 05/02/2014 9:45 AM CD T documented as of this encounter
--- OUTSIDE RECORDS SUMMARY | 2022-07-08 08:58 | XMS_ITS | Encounter Summary ---
:1985 Author Organization [facility] Address [address] [place] [address] Care Team Providers Name Role Phone Unavailable Primary Care Provider Unavailable Encounter Details Date Type Department Care Team Description 07/31/2014 Hospital Encounter [facility]X [facility] Pavel BELTRAN Obi, M.D. [address] [place] [address] (Wo rk) Social History Tobacco [...] How often do you attend religion or sikh More than 4 time s [...] Comments Blood Pressure 154/92 07/31/2014 10:14 AM TRAVEL COUNSELOR Pulse - - Temperature - - Respiratory Rate - - Oxygen Saturation - - Inhaled Oxygen Concentration - - Weight 143 kg (315 lb 11.2 oz) 07/31/2014 10:14 AM TRAVEL COUNSELOR Height 158 cm (5' 2.21) 07/31/2014 10:14 AM TRAVEL COUNSELOR Body Mass Index 57.36 07/31/2014 10:14 AM TRAVEL COUNSELOR documented in this encounter Procedure Notes Berny [...] CHAU MD On: 07/31/2014 10:33 AM Source: [facility] POWERCHART Document Id: [id number] EL COUNSELOR documented in this encounter Miscellaneous Notes Miscellaneous - Alison Monsivais L.P.N. - 07/31/2014 10:14 AM CST Adult Systems Analyst Engineer Intake/History Adult Systems Analyst Engineer Intake/History Entered On: 07/31/2014 10:16 TRAVEL COUNSELOR Performed On: 07/31/2014 10:14 TRAVEL COUNSELOR by ALISON MONSIVAIS LPN Intake Chief Complaint [...] kg/m2 ALISON MONSIVAIS LPN - 07/31/2014 10:14 TRAVEL COUNSELOR General Info Information Given By : Patient Languages : Korean Is Patient Female and 13-50 no hysterectomy : Yes Status : Patient denies Are you ? : No ALISON MONSIVAIS LPN - 07/31/2014 10:14 TRAVEL COUNSELOR Subjective Pain Symptoms : No ALISON MONSIVAIS LPN - 07/31/2014 10:14 TRAVEL COUNSELOR Dependent Habits Tobacco Use/Currently Using : Yes Tobacco Use/Advised to Quit : Yes Exposure to Tobacco Smoke : Patient smokes Smoking Status : Current some day smoker ALISON MONSIVAIS LPN - 07/31/2014 10:14 TRAVEL COUNSELOR Tobacco Use Grid Type : Cigarettes Cigarette Use Packs/Day : 0.5 Last Use : 04/30/2014 ALISON MONSIVAIS LPN - 07/31/2014 10:14 TRAVEL COUNSELOR Caffeine Use Grid Caffeine Use : Current Type : Coffee, Soft drinks Frequency : Daily ALISON MONSIVAIS LPN - 07/31/2014 10:14 TRAVEL COUNSELOR Recreational Drug Use Grid Drug Use : None ALISON MONSIVAIS LPN - 07/31/2014 10:14 TRAVEL COUNSELOR ID Screen Travel Within Last 21 Days : No ALISON MONSIVAIS LPN - 07/31/2014 10:14 TRAVEL COUNSELOR Source: [facility] POWERCHART Document Id: [id number] TRAVEL COUNSELOR!40 EL COUNSELOR documented in this encounter Plan of Treatment Scheduled Procedures Name Priority Associated Diagnoses Date/Time COLONOSCOPY Diarrhea documented as of this encounter Visit Diagnoses Not on filedocumented in this encounter Additional Health Concerns Assessment Noted Time PHQ-9 Depression Total Score: 18 05/02/2014 9:45 AM CD T documented as of this encounter
--- OUTSIDE RECORDS SUMMARY | 2022-07-08 08:58 | XMS_ITS | Encounter Summary ---
:1985 Author Organization [facility] Address [address] [place] [address] Care Team Providers Name Role Phone Unavailable Primary Care Provider Unavailable Encounter Details Date Type Department Care Team Description 03/15/2014 Hospital Encounter HX [facility] Jessica Bear M.D. [address] [place], [place] [phone] (Wo rk) Social History [...] Letter 16 March 2014 PUNEET FRIED [address] [place] [phone] Dear PUNEET FRIED, I am pleased to [...] 03/15/2014 150 - 450 Sincerely, MICHELLE BEAR [address] [place] [address] Electronic Signature Electronically Signed By: MICHELLE BEAR MD On: 16 March 2014 This document has images extracted. Source: [facility] POWERCHART Document Id: [id number] Electronically signed by Conversion, [facility] Premium Cancellation Clerk [id number] at 01/19/2017 1:49 PM CDT documented in [...] Erythrocytes 5.16 (H) 3.90 - POWERCHART 5.03 [id number] HX RDW 13.3 11.9 - POWERCHART 15.5 [...] S MGDL eGFR >60 >=60 POWERCHART Black/ [id number] Belizean HXeGFR (MDRD) >60 >=60 POWERCHART [id number] Comment: Results are in mL/min/1.73m CKD Stage [...]
--- OUTSIDE RECORDS SUMMARY | 2022-07-08 08:58 | XMS_ITS | Encounter Summary ---
:1985 Author Organization [facility] Address [address] [place] [address] Care Team Providers Name Role Phone Unavailable [...] How often do you attend buddhism or alevism More than 4 time s [...]
--- OUTSIDE RECORDS SUMMARY | 2022-07-08 08:58 | XMS_ITS | Encounter Summary ---
:1985 Author Organization [facility] Address [address] [place] [address] Care Team Providers Name Role Phone Unavailable Primary Care Provider Unavailable Encounter Details Date Type Department Care Team Description 12/13/2014 Hospital Encounter [facility] Maureen Berman P.A.-C., M.S. [address] [place] [phone] (Wo rk) Social History Tobacco Use Types [...] How often do you attend lutheran or latter-day More than 4 time s [...] P.A.-C., M.S. - 12/13/2014 9:40 AM CDT [id number] CHIEF COMPLAINT/REASON FOR VISIT Recheck headaches. HISTORY [...] MONACO PA-C On: 12/20/2014 09:46 AM Source: [facility] MHSDOLBEYNONRADSYS Document Id: [id number] documented in this encounter Nursing Notes Alison [...] open cavity, apply OIL OF CLOVES (available blap-xso-yxdktyg in drug stores) directly to the tooth to reduce pain. Some pharmacies carry an ercm-dih-aksksma toothache kit. This contains a paste, which [...] tooth ?? Difficulty swallowing or breathing ?? [id number], [place] [address]. All rights reserved. This information is not intended as a substitute for professional medical care. Always follow your healthcare professional's instructions. This document has images extracted. Please consider using [employer] for all your patient education needs. Source: [facility] POWERCHART Document Id: [id number] Glen Graf L.P.N. - 12/13/2014 10:15 AM [...] GRAF LPN - 12/13/2014 10:15 CDT Source: [facility] POWERCHART Document Id: [id number] CDT!8 documented in this encounter Miscellaneous Notes [...] 3 Substitutions Allowed Route To Pharmacy - [facility] Other (See Comment) Already done. Signed by [...] 3 Substitutions Allowed Route To Pharmacy - [facility] [employer] [id number] Tablet form not available. Please switch to capsule Source: [facility] POWERCHART Document Id: [id number] Miscellaneous - Alison Berman P.A.-C., M.S. - 12/13/2014 10:41 AM CDT Ambulatory Patient Summary [facility] [address], [address] Marko Fonseca [place] [phone] Visit Information Name: PUNEET FRIED [facility] Number: [id number] Current Date: 12/13/2014 10:41:40 Physicians [...] hours x 7 day(s) New Routed to [place] [id number] [place] [id number] HYDROcodone-acetaminophen (Vicodin 5 mg-300 mg oral tablet) [...] after two hours if needed. Routed to [facility] [address] [place] [id number] venlafaxine (venlafaxine 37.5 mg oral tablet, extended release) 1 Tablet(s), Oral, once a day 1 tab daily x 1 week. Then increase to 2 tabs daily as tolerated. New Routed to [place] [address] [place] [id number] Stop Taking the Following Medications: amitriptyline (amitriptyline [...] open cavity, apply OIL OF CLOVES (available tqqt-bxc-yagnipo in drug stores) directly to the tooth to reduce pain. Some pharmacies carry an ishh-qhw-uiymyug toothache kit. This contains a paste, which [...] tooth ?? Difficulty swallowing or breathing ?? 2486-2515 [place] [address]. All rights reserved. This information is not intended as a substitute for professional medical care. Always follow your healthcare professional's instructions. Your Goals/Additional instructions: This document has images extracted. Please consider using [employer] for all your patient education needs. Source: [facility] POWERCHART Document Id: [id number] Miscellaneous - Alison Berman P.A.-C., M.S. - 12/13/2014 10:41 AM CDT Ambulatory Discharge Medication List [facility] [address], [address] [place], [place] [phone] Visit Information Name: PUNEET FRIED [facility] Number: [phone] Visit Date: 12/13/2014 10:41:39 Attending [...] hours x 7 day(s) New Routed to [place] [address] [place] [id number] HYDROcodone-acetaminophen (Vicodin 5 mg-300 mg oral tablet) 1 Tablet(s), Oral, every 6 hours as needed for Pain No more than 4,000mg acetaminophen/24hrs New Routed to [place] ibuprofen (ibuprofen 200 mg oral tablet) See Instructions 3-4 tabs prn SUMAtriptan (SUMAtriptan 50 mg oral tablet) 1 Tablet(s), Oral, as directed as needed for Migraine headache Take 1 tablet at onset of headache. Repeat after two hours if needed. Routed to [place] [address] [place] [id number] venlafaxine (venlafaxine 37.5 mg oral tablet, extended release) 1 Tablet(s), Oral, once a day 1 tab daily x 1 week. Then increase to 2 tabs daily as tolerated. New Routed to [place] [address] [place] [id number] Stop Taking the Following Medications: amitriptyline (amitriptyline [...] PA-C Signed On:13-DEC-2014 10:41:02 Additional Information: Source: [facility] POWERCHART Document Id: [id number] Miscellaneous - Glen Graf L.P.N. - 12/13/2014 [...] GRAF LPN - 12/13/2014 9:50 CDT Source: [employer] Document Id: [id number] CDT!13 Miscellaneous - Glen Graf L.P.N. 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 Data Analyst Intake/History Adult Data Analyst Intake/History Entered On: 12/13/2014 9:50 CDT Performed [...] Information Given By : Patient Languages : Peruvian Is Patient Female and 13-50 no hysterectomy [...] GLEN GRAF LPN 12/13/2014 9:48 CDT Source: [employer] Document Id: [id number] CDT!50 documented in this encounter Plan of Treatment Scheduled Procedures Name Priority Associated Diagnoses Date/Time COLONOSCOPY Diarrhea documented as of this encounter Visit Diagnoses Not on filedocumented in this encounter Additional Health Concerns Assessment Noted Time PHQ-9 Depression Total Score: 11 12/13/2014 9:50 AM CD T documented as of this encounter
--- OUTSIDE RECORDS SUMMARY | 2022-07-08 08:58 | XMS_ITS | Encounter Summary ---
:1985 Author Organization [facility] Address [address] [place] [address] Care Team Providers Name Role Phone Unavailable Primary Care Provider Unavailable Encounter Details Date Type Department Care Team Description 02/27/2015 Hospital Encounter [facility] [address] [place] [phone] (Wo rk) Social History Tobacco Use [...] How often do you attend holiness or sikhism More than 4 time s [...] Ordered: OV Est Pt Level 3 - [address]1211 - 15 min Orders: cephalexin, 500 mg = 1 cap(s), PO, 2xDay, x 10 day(s), # 20 cap(s), 0 Refill(s), Acute, Pharmacy: [facility] predniSONE, 40 mg = 2 tab(s), PO, Daily, x 5 day(s), # 10 tab(s), 0 Refill(s), Acute, Pharmacy: [facility] Electronically Signed By: ELONORA NATHAN MD On: 02/27/2015 08:25 AM Source: [facility] POWERCHART Document Id: [id number] documented in this encounter Miscellaneous Notes Miscellaneous - Roosevelt Rodriges L.PBrittaneyNBrittaney - 02/27/2015 1:00 PM CDT Quality Measures Quality Measures Entered On: 03/07/2015 13:00 CDT Performed On: 02/27/2015 13:00 CDT by ROOSEVELT RODRIGES LPN Depression PHQ-9 Score : 0 ROOSEVELT RODRIGES LPN - 03/07/2015 13:00 CDT [facility] Document Id: [id number] CDT!3 Miscellaneous - Leonora Farias M.D. - 02/27/2015 7:39 AM CDT Work Excuse 27 February 2015 PUNEET FRIED [address] [place] [phone] Dear PUNEET FRIED, You were examined in [...] date: 02/28/2015 Notes: _ Sincerely, LEONORA NATHAN [address] [phone] Electronic Signature Electronically Signed By: LEONORA NATHAN MD On: 27 February 2015 This document has images extracted. Source: [facility] Document Id: [id number] Electronically signed by Roland [facility] Land Leasing Information Clerk [id number] at 01/17/2017 7:14 PM CDT Miscellaneous - Leonora Farias M.D. - 02/27/2015 7:38 AM CDT Ambulatory Patient Summary [address] 24 [facility] NEHEMIAH Hawk [phone] Visit Information Name: PUNEET FRIED [facility] Number: [id number] Current Date: 02/27/2015 07:38:28 Physicians [...] x 10 day(s) New Routed to [facility] [address] [place] [address] EPINEPHrine (EpiPen Auto-Injector 0.3 mg injectable kit) [...] day x 5 day(s) New Routed to [facility] [address] SUMAtriptan (SUMAtriptan 50 mg oral tablet) 1 [...] you dont have one. Go to [email or web address] and click on Create Your Account. Then, follow the directions to complete the online form. Youll be asked for your [facility] number which you can find at the top of this document. Your Goals/Additional instructions: Source: [facility] POWERCHART Document Id: [id number] Miscellaneous - Leonora Farias M.D. - 02/27/2015 7:38 AM CDT Ambulatory Discharge Medication List [address] [phone] Visit Information Name: PUNEET FRIED [facility] Number: [id number] Visit Date: 02/27/2015 07:38:26 Attending [...] day x 10 day(s) New Routed to [address] [address] EPINEPHrine (EpiPen Auto-Injector 0.3 mg injectable kit) [...] day x 5 day(s) New Routed to [address] [address] SUMAtriptan (SUMAtriptan 50 mg oral tablet) 1 [...] MD Signed On:27-FEB-2015 07:38:18 Additional Information: Source: [facility] POWERCHART Document Id: [id number] Miscellaneous - Trace Khan, L.P.N. - 02/27/2015 7:10 AM CDT Adult Hydraulic Modeling Engineer Intake/History Document Has Been Updated Adult Hydraulic Modeling Engineer Intake/History Entered On: 02/27/2015 7:10 CDT [...] Preferred Communication Mode : Verbal Languages : Kinyarwanda Is Patient Female and 13-50 no hysterectomy : Yes Status : Patient denies Are you ? : No TRACE KHAN REGULATORY COMPLIANCE OFFICER - 02/27/2015 7:10 CDT Subjective Pain Symptoms : No [facility]ACE KHAN [facility] - 02/27/2015 7:10 CDT Dependent Habits Tobacco Use/Currently Using : Yes Tobacco Use/Advised to Quit : Yes Exposure to Tobacco Smoke : Patient smokes Smoking Status : Current every day smoker TRACE KHAN [facility] - 02/27/2015 7:10 CDT Tobacco Use Grid Type : Cigarettes Cigarette Use Packs/Day : 0.5 TRACE KHAN [facility] - 02/27/2015 7:10 CDT Alcohol Use : No TRACE KHAN [facility] - 02/27/2015 7:12 CDT Caffeine Use Grid Caffeine Use : Current Type : Coffee, Soft drinks Frequency : Occasionally TRACE KHAN [facility] - 02/27/2015 7:12 CDT TRACE KHAN [facility] - 02/27/2015 7:10 CDT Recreational Drug Use Grid Drug Use : None TRACE KHAN [facility] - 02/27/2015 7:10 CDT Source: [facility] 24 [employer] NetworkCHART Document Id: [id number] CDT!21 documented in this encounter Plan of [...] Strep A Screen (02/27/2015 7:10 AM CDT) [facility] gist Method Time Signature HXStrep A (POSITIVE) [...]
--- OUTSIDE RECORDS SUMMARY | 2022-07-08 08:58 | XMS_ITS | Encounter Summary ---
:1985 Author Organization [facility] Address [address] [place] [address] Care Team Providers Name Role Phone Unavailable Primary Care Provider Unavailable Encounter Details Date Type Department Care Team Description 08/02/2013 Hospital Encounter HX NO MAPPING Berny Garcia M.D. [address] [place], [place] [phone] (Wo rk) Social History [...] How often do you attend islam or restorationism More than 4 time s [...]
--- OUTSIDE RECORDS SUMMARY | 2022-07-08 08:58 | XMS_ITS | Encounter Summary ---
:1985 Author Organization [facility] Address [address] [place] [address] Care Team Providers Name Role Phone Unavailable Primary Care Provider Unavailable Encounter Details Date Type Department Care Team Description 05/04/2014 Hospital Encounter [facility]X [facility] Oralia San O.D. Social History Tobacco Use [...] How often do you attend yazidism or mormonism More than 4 time s [...] ( ORTHO ) Current RX: Sphere Cylinder Arco Add Prism Right Eye ( -2.00 ) [...] ROACH OD On: 05/04/2014 11:27 AM Source: [facility] POWERCHART Document Id: [id number] documented in this encounter H&P Notes Oralia Roach O.D. - 05/04/2014 10:37 AM CDT [id number] The patient is in today noticing some [...] given for new glasses. Trials for Acuvue Seltzer were dispensed along with Biotrue kit. Patient [...] ROACH OD On: 05/07/2014 09:34 AM Source: [facility] MHSDOLBEYNONRADSYS Document Id: [id number] documented in this encounter Miscellaneous Notes Miscellaneous [...] if needed ) ( ) Call for Grey Inspector ( ) Follow up on Results ( ) Other: PROVIDER: ( ) Call Physician ( ) Call Pharmacist ( ) Call Lab ( ) Other: Special Instructions: Comments: Source: [facility] POWERCHART Document Id: [id number] Electronically signed by Roland [facility] Casing Worker [id number] at 01/19/2017 11:34 AM CDT Miscellaneous - Oralia Roach O.D. - 05/04/2014 11:49 AM CDT Ambulatory Patient Summary [facility] [address] [place] [address] [address] [place], [place] [phone] Visit Information Name: FRIEDPUNEET CLAY CHRISTIANO [facility] Number: [id number] Current Date: 05/04/2014 11:49:30 [...] appointment detail needed. Your Goals/Additional instructions: Source: [facility] POWERCHART Document Id: [id number] Miscellaneous - Oralia Roach O.D. - 05/04/2014 11:49 AM CDT Ambulatory Discharge Medication List [facility] [address] [place], [place] [phone] Visit Information Name: PUNEET FRIED [facility] Number: [id number] Visit Date: 05/04/2014 11:49:29 [...] OD Signed On:04-MAY-2014 11:48:28 Additional Information: Source: [facility] POWERCHART Document Id: [id number] Miscellaneous - Vu Craven C.O.A. 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 Linotyper Intake/History Adult Linotyper Intake/History Entered On: 05/04/2014 10:51 CDT Performed On: 05/04/2014 10:51 CDT by VU CRAVEN Intake Chief Complaint : EYE EXAM Height : 158 cm(Converted to: 5 ft 2 inch(es), 62 inch(es)) VU CRAVEN - 05/04/2014 10:51 CDT General Info Information Given By : Patient Languages : Telugu Is Patient Female and 13-50 no hysterectomy [...] VU CRAVEN - 05/04/2014 10:51 CDT Source: [facility] Document Id: [id number] CDT!29 documented in this encounter Plan of Treatment Scheduled Procedures Name Priority Associated Diagnoses Date/Time COLONOSCOPY Diarrhea documented as of this encounter Visit Diagnoses Not on filedocumented in this encounter Additional Health Concerns Assessment Noted Time PHQ-9 Depression Total Score: 18 05/02/2014 9:45 AM CD T documented as of this encounter
--- OUTSIDE RECORDS SUMMARY | 2022-07-08 08:58 | XMS_ITS | Encounter Summary ---
:1985 Author Organization [facility] Address [address] [place] [address] Care Team Providers Name Role Phone Unavailable Primary Care Provider Unavailable Encounter Details Date Type Department Care Team Description 04/05/2012 [facility] Gildardo Marvin M.D. [address] [place] [phone] (Wo rk) Social History Tobacco Use [...] How often do you attend yazidism or samaritan More than 4 time s [...] Marvin M.D. - 04/05/2012 7:55 AM CDT [id number] IMPRESSION/REPORT/PLAN 1) Bronchitis with bacterial sinusitis with [...] MARVIN MD On: 04/06/2012 11:36 AM Source: [facility] MHSDOLBEYNONRADSYS Document Id: [id number] documented in this encounter Miscellaneous Notes Miscellaneous - Dung Noonan R.N. - 04/30/2014 3:53 PM CDT bee sting, ER From: DUNG NOONAN RN Sent: 04/30/2014 15:53:29 CDT Subject: bee sting, ER Pt has no PCP here, calls with bee sting on wrist yesterday getting worse, hand warm and red, swollen from fingers up wrist, breathing fine she reports. ER advised and notified. Source: [facility] POWERCHART Document Id: [id number] Electronically signed by Conversion, [facility] Police Dispatcher [id number] at 01/23/2017 4:51 PM CDT Miscellaneous - Vinicio Marvin M.D. - 04/05/2012 9:05 AM CDT Ambulatory Patient Summary [place] [id number] Visit Information Name: PUNEET FRIED Current Date: [...] No Appointments found Your Goals/Additional instructions: Source: [facility] POWERCHART Document Id: [id number] Leilani - Vinicio Marvin M.D. - 04/05/2012 9:05 AM CDT Ambulatory Depart Summary [address] [address] Visit Information Name: PUNEET FRIED Visit Date: [...] your provider for clarification. Additional Information: Source: [facility] POWERCHART Document Id: [id number] Leilani - Roosevelt Rodriges L.P.N. - 04/05/2012 8:07 AM CDT Adult Pie Chef Intake/History Adult Pie Chef Intake/History Entered On: 04/05/2012 8:11 CDT Performed [...] Large Weight Source : Other: refused ROOSEVELT RODRIGSE LPN - 04/05/2012 8:07 CDT Subjective Pain [...] penicillins ; Type: Allergy ; Updated By: LGEN ACOSTA; Reviewed Date: 03/24/2012 11:30 CDT Source: [facility] POWERCHART Document Id: [id number] documented in this encounter Plan of Treatment Scheduled Procedures Name Priority Associated Diagnoses Date/Time COLONOSCOPY Diarrhea documented as of this encounter Visit Diagnoses Not on filedocumented in this encounter
--- OUTSIDE RECORDS SUMMARY | 2022-07-08 08:58 | XMS_ITS | Encounter Summary ---
:1985 Author Organization [facility] Address [address] [place] [address] Care Team Providers Name Role Phone Unavailable Primary Care Provider Unavailable Encounter Details Date Type Department Care Team Description 05/10/[address] [facility] Oralia San O.D. Social History Tobacco [...] How often do you attend samaritan or gnosticism More than 4 time s [...] ROACH OD On: 05/10/2014 09:44 AM Source: [facility] POWERCHART Document Id: [id number] documented in this encounter Miscellaneous Notes Miscellaneous - Oralia Roach O.D. - 05/10/2014 9:11 AM CDT Ambulatory Patient Summary [facility] [address] [place], [place] [phone] Visit Information Name: PUNEET FRIED [facility] Number: [id number] Current Date: 05/10/2014 09:11:03 Physicians [...] appointment detail needed. Your Goals/Additional instructions: Source: [facility] POWERCHART Document Id: [id number] YS [facility] - Oralia Roach O.D. 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 Intake/History Entered On: 05/10/2014 8:55 CDT Performed On: 05/10/2014 8:55 CDT by RAKEL MARTINEZ Intake Chief Complaint : CONTACT LENS CHECK Height : 158 cm(Converted to: 5 ft 2 inch(es), 62 inch(es)) RAKEL MARTINEZ - 05/10/2014 8:55 CDT General Info Information Given By : Patient Languages : Tajik Is Patient Female and 13-50 no hysterectomy [...] RAKEL MARTINEZ - 05/10/2014 8:55 CDT Source: [facility] PNMsoft Document Id: [id number] CDT!29 documented in this encounter Plan of Treatment Scheduled Procedures Name Priority Associated Diagnoses Date/Time COLONOSCOPY Diarrhea documented as of this encounter Visit Diagnoses Not on filedocumented in this encounter Additional Health Concerns Assessment Noted Time PHQ-9 Depression Total Score: 05/02/2014 9:45 AM CD T documented as of this encounter
--- OUTSIDE RECORDS SUMMARY | 2022-07-08 08:58 | XMS_ITS | Encounter Summary ---
:1985 Author Organization [facility] Address [address] [place] [address] Care Team Providers Name Role Phone Unavailable Primary Care Provider Unavailable Encounter Details Date Type Department Care Team Description 08/02/2013 Hospital Encounter HX NO MAPPING Berny Garcia M.D. [address] [place], [place] [phone] (Wo rk) Social History [...] How often do you attend anabaptism or temple More than 4 time s [...]
--- OUTSIDE RECORDS SUMMARY | 2022-07-08 08:58 | XMS_ITS | Encounter Summary ---
:1985 Author Organization [facility] Address [address] [place] [address] Care Team Providers Name Role Phone Unavailable Primary Care Provider Unavailable Encounter Details Date Type Department Care Team Description 11/03/2012 - Hospital Encounter HX [facility] ED Stephen Toth M.D. 11/04/2012 Social [...] How often do you attend rastafari or buddhist More than 4 time s [...] 11/14/2012 2:53 PM CDT ED Discharge Instructions [address] [address] Name: PUNEET FRIED Date of : 1985 12:00 AM Visit Date: 11/03/2012 8:13 PM [facility] Number: [id number] Address: [address] [place] [phone] Primary Care Provider: RABIA NATHAN MD IMPORTANT: [facility] in [place] would like to thank you for allowing [...] with fevers. With: Address: When: RABIA NATHAN [address] [place] [address] Business (1) Within As Needed Comments: Patient Education Materials: [id number] NECK SPASM [No trauma] Spasm of the [...] or vomiting Fever over 100.4??F (38.0??C) ?? [id number] [employer], [address] [place] [address]. All rights reserved. This information is not [...] home with a responsible constitution party. I, PUNEET FRIED , or responsible constitution party have received this information and my questions have been answered. I have discussed any challenges I see with this plan with the nurse or physician. Patient Signature or Responsible Libertarian/Relationship Date Time Provider Signature Date Time This document has images extracted. Please consider using [employer] for all your patient education needs. Source: [facility] POWERCHART Document Id: [id number] Jeaneth Rodríguez R.N. - 11/14/2012 2:53 PM CDT ED Depart Summary [facility] Emergency Department Clinical Discharge Summary PERSON INFORMATION Name PUNEET FRIED Age 26 Years 1985 12:00 AM Sex Female Language Turkmen PCP RABIA NATHAN MD Marital Status Single N [id number] [id number] Reason ; Head pain; PAIN, BACK, RT SIDE OF HEAD Specialty Enc Type Emergency Med Service Emergency Medicine Referred by Track Group [facility] ED Discharge 11/04/2012 4:26 PM Tracking Id [id number] Checkout 11/04/2012 3:14 PM Checkin 11/03/2012 8:13 PM Acuity Dispo Type * Discharged to Home or Self Care Arrival 11/03/2012 8:13 PM Reg Status LOS 000 19:01 Address: [address] [place] [phone] Comment: PROVIDER INFORMATION Provider Role Provider Contact Time RUIZ KING MD ED Provider 11/04/12 15:11 RUIZ KING MD ED Provider 11/04/12 15:11 DIAGNOSIS Comment: PATIENT EDUCATION INFORMATION Instructions: NECK SPASM, No Trauma Follow up: With: Address: When: Return to Emergency Department Within As Needed Comments: Return to ER if you develop severe worsening, generalized headache with fevers. With: Address: When: RABIA VENITA [address] [place] [address] Business (1) Within As Needed Comments: Source: [facility] [email or web address] Document Id: [id number] documented in this encounter Nursing Notes Rylee [...] Medical ; Code: 1231 ; Contributor System: echoecho ; Last Updated: 01/21/2012 9:41 CDT ; Life Cycle Date: 01/12/2012 ; Life Cycle Status: Active ; Responsible Provider: GLEN ACOSTA; Vocabulary: ICD-9-CM Diagnoses(Active) Head pain Date: 11/03/2012 ; Diagnosis Type: Reason For Visit ; Confirmation: Complaint of ; Clinical Dx: Head pain ; Classification: Medical ; Clinical Service: Emergency medicine ; Code: PNED ; Probability: 0 ; Diagnosis Code: [id number] Triage Chief Complaint Description : see notes Information Given By : Patient Accompanied By : Friend Mode of Arrival ED : Private vehicle Track : Medical Languages : Turkmen RYLEE ROMERO RN - 11/03/2012 20:47 CDT [...] ROMERO RN - 11/03/2012 20:47 CDT Source: [facility] [email or web address] Document Id: [id number] documented in this encounter ED Notes Stephen [...] selected or recorded. Surgical history: . None ([id number]). Family history: . No family history items [...] % 58.8 % Lymph % 31.9 % [place] % 6.9 % Eos % 2.2 % Baso % 0.2 % Neutro Absolute 5.73 10(9)/L Lymph Absolute 3.10 x10(9)/L HI [place] Absolute 0.67 x10(9)/L Eos Absolute 0.21 x10(9)/L [...] TOTH MD On: 11/03/2012 09:21 PM Source: [facility] [email or web address] Document Id: [id number]} Rylee Romero R.N. - 11/03/2012 8:44 PM [...] Medical ; Code: 1231 ; Contributor System: echoecho ; Last Updated: 01/21/2012 9:41 CDT ; Life Cycle Date: 01/12/2012 ; Life Cycle Status: Active ; Responsible Provider: GLEN ACOSTA; Vocabulary: ICD-9-CM Diagnoses(Active) Head pain Date: 11/03/2012 ; Diagnosis Type: Reason For Visit ; Confirmation: Complaint of ; Clinical Dx: Head pain ; Classification: Medical ; Clinical Service: Emergency medicine ; Code: PNED ; Probability: 0 ; Diagnosis Code: [id number] Triage Chief Complaint Description : 26 year old female admits with compalints of right sided ocipital painx24 hrs. Pt states she has been exposed to menigitis on Wednesday Information Given By : Patient Mode of Arrival ED : Private vehicle Track : Medical Languages : Turkmen RYLEE ROMERO RN - 11/03/2012 20:44 CDT [...] ROMERO RN - 11/03/2012 20:44 CDT Source: [employer] Document Id: [id number] documented in this encounter Miscellaneous Notes Miscellaneous [...] Control : 8 Lynx Visit Level : [address] Level 4 [place] - 11/08/2012 13:29 CDT Source: [employer]To Document Id: [id number] documented in this encounter Plan of Treatment [...] % 31.9 23.0 - POWERCHART 44.0 HX [place] % 6.9 2.0 - 18.0 POWERCHART HX [...] M.D. LAB HISTORICAL ORDERS Performing Organization Address [facility] Code Phon e Number POWERCHART CRP (C-Reactive Protein) (11/03/2012 9:10 PM CDT) P athologist Signature C-Reactive 0.4 0.0 - 0.8 POWERCHART Protein (CRP), MGDL S Specimen (Source) Anatomical Collection Method Collection Time Re ceived Time Location / / Volume Laterality Blood 11/03/2012 9:10 PM CDT Stephen Toth M.D. LAB BLOOD ADD-ON Performing Organization Address [facility] Code Phon e Number POWERCHART documented in this encounter Visit Diagnoses Not on filedocumented in this encounter
--- OUTSIDE RECORDS SUMMARY | 2022-07-08 08:58 | XMS_ITS | Encounter Summary ---
:1985 Author Organization [facility] Address [address] [place] [address] Care Team Providers Name Role Phone Unavailable Primary Care Provider Unavailable Encounter Details Date Type Department Care Team Description 04/30/2014 Hospital Encounter HX [facility] ED Remi Marvin M.D. [address] [phone] (Wo rk) Social History Tobacco [...] How often do you attend hindu or moravian More than 4 time s [...] 04/30/2014 7:01 PM CDT ED Discharge Instructions [address] [address] Name: PUNEET FRIED Date of : 1985 12:00 AM Visit Date: 04/30/2014 4:05 PM [facility] Number: [id number] Address: [address] [place] [phone] Primary Care Provider: MICHELLE BEAR MD IMPORTANT: [facility] in [place] would like to thank you for allowing us to assist you with your healthcare needs. The following includes patient education materials and informationregarding your injury/illness. Diagnosis: Allergy Bee Sting Active; Hives; Reaction Allergic Active Follow-Up Instructions: With: Address: When: MICHELLE BEAR [address] [place] [address] [facility] (1) Within As Needed Comments: For recheck If symptoms worsen Your Upcoming Appointments: Date Time Location Provider No Appointments found Patient Education Materials: [id number] ALLERGIC REACTION, OTHER [local] You are having [...] Colored fluid draining from the wound ?? 7895-4753 [place] [address]. All rights reserved. This information is not intended as a substitute for professional medical care. Always follow your healthcare professional's instructions. [id number] MEDICATION: ZYRTEC Zyrtec (generic name is cetirizine) [...] any questions that you may have.] ?? 0010-8652 [place] [address]. All rights reserved. This information is not intended as a substitute for professional medical care. Always follow your healthcare professional's instructions. [id number] INSECT BITE Insects most often bite to [...] HOME CARE Medications: The doctor may prescribe useb-jcp-liahpyk (OTC) medications to help relieve itching andswelling. [...] you have trouble breathing, call 911) ?? [phone] [facility], [address] [place] [address]. All rights reserved. This information is not [...] document has images extracted. Please consider using [employer] for all your patient education needs. Source: [facility] POWERCHART Document Id: [id number] Bambi Addison R.N. - 04/30/2014 7:01 PM CDT ED Depart Summary [facility] Emergency Department Clinical Discharge Summary PERSON INFORMATION Name PUNEET FRIED Age 28 Years 1985 12:00 AM Sex Female Language Malaysian PCP MICHELLE BEAR MD Marital Status Single Visit Id Visit Reason Hand pain-swelling; Bee Sting Specialty Enc Type Emergency Med Service Emergency Medicine Referred by Track Group [facility] ED Discharge 04/30/2014 6:20 PM Tracking Id [id number] Checkout 04/30/2014 6:20 PM Checkin 04/30/2014 4:05 PM Acuity 4 -Less Urgent Dispo Type * Discharged to Home or Self Care Arrival 04/30/2014 4:05 PM Reg Status Complete LOS 000 02:15 Address: [address] [place] [phone] Comment: PROVIDER INFORMATION Provider Role Provider Contact Time RUIZ MARVIN MD ED Provider 04/30/14 16:37 BAMBI ADDISON SHEEP KILLER Nurse 04/30/14 17:21 DIAGNOSIS Allergy Bee Sting Active; Hives; Reaction Allergic Active Comment: PATIENT EDUCATION INFORMATION Instructions: ALLERGIC REACTION, Other (Local); ZYRTEC; INSECT BITE Follow up: With: Address: When: MICHELLE BEAR [address] [place] [address] [phone] Studio (2) Within As Needed Comments: For recheck If symptoms worsen Source: [employer] Document Id: [id number] documented in this encounter ED Notes Bambi [...] ADDISON RN - 04/30/2014 18:59 CDT Source: [employer] Document Id: [id number] CDT!9 Bambi Addison R.N. - 04/30/2014 6:57 [...] ADDISON RN - 04/30/2014 18:57 CDT Source: [employer] Document Id: [id number] CDT!7 Bambi Addison R.N. - 04/30/2014 6:10 [...] ADDISON RN - 04/30/2014 18:55 CDT Source: [employer] Document Id: [id number] CDT!11 Bambi Addison R.N. - 04/30/2014 5:45 [...] ADDISON RN - 04/30/2014 18:52 CDT Source: [employer] Document Id: [id number] CDT!19 Bambi Addison R.N. - 04/30/2014 5:30 [...] ADDISON RN - 04/30/2014 18:50 CDT Source: [employer] Document Id: [id number] CDT!13 Ruiz Marvin M.D. - 04/30/2014 5:22 [...] (maternal) Comments: 03/13/2014 13:47 - JORY COPPOLA NAIL MAKING MACHINE SETTER ear Grandfather (maternal) Comments: 03/13/2014 13:47 - JORY COPPOLA LPN larynx Cystic fibrosis Sister [place] - Lung cancer Grandmother (paternal, ) Comments: 03/13/2014 13:47 - JORY COPPOLA NAIL MAKING MACHINE SETTER brain cancer Hypothyroidism Mother Myocardial infarction Father: [...] PM This document has images extracted. Source: [facility] POWERCHART Document Id: [id number]} Bambi Addison RRoverto - 04/30/2014 4:22 PM [...] Medical ; Code: 300.4 ; Contributor System: [facility]_HX_PR_UPLOAD ; Last Updated: 11/18/2013 19:04 CDT ; Life Cycle Status: Active ; Vocabulary: ICD-9-CM ; Comments: - Dysthymic disorder Headache (ICD-9-CM :784.0 ) Name of Problem: Headache ; Onset Date: 10/24/2007 ; Confirmation: Confirmed ; Classification: Medical ; Code: 784.0 ; Contributor System: [facility]_HX_PR_UPLOAD ; Last Updated: 11/18/2013 19:04 [...] Medical ; Code: V22.2 ; Contributor System: [employer] ; Last Updated: 01/21/2012 9:41 CDT ; Life Cycle Date: 01/12/2012 ; Life Cycle Status: Active ; Responsible Provider: GLEN ACOSTA; Vocabulary: ICD-9-CM Diagnoses(Active) Hand pain-swelling Date: 04/30/2014 ; Diagnosis Type: Reason For Visit ; Confirmation: Complaint of ; Clinical Dx: Hand pain-swelling ; Classification: Medical ; Clinical Service: Emergency medicine ; Code: PNED ; Probability: 0 ; Diagnosis Code: [id number] Triage Chief Complaint Description : see triage note Mode of Arrival ED : Private vehicle, Ambulatory Track : Medical Languages : Malaysian Is Patient Female and [...] ADDISON RN - 04/30/2014 16:22 CDT Source: [facility] [employer] Document Id: [id number] CDT!53 Bambi Addison R.N. - 04/30/2014 4:11 [...] Medical ; Code: 300.4 ; Contributor System: [facility]_HX_PR_UPLOAD ; Last Updated: 11/18/2013 19:04 CDT ; Life Cycle Status: Active ; Vocabulary: ICD-9-CM ; Comments: - Dysthymic disorder Headache (ICD-9-CM :784.0 ) Name of Problem: Headache ; Onset Date: 10/24/2007 ; Confirmation: Confirmed ; Classification: Medical ; Code: 784.0 ; Contributor System: [facility]_[employer]_PR_UPLOAD ; Last Updated: 11/18/2013 19:04 CDT ; [...] Medical ; Code: V22.2 ; Contributor System: [employer] ; Last Updated: 01/21/2012 9:41 CDT ; Life Cycle Date: 01/12/2012 ; Life Cycle Status: Active ; Responsible Provider: GLEN ACOSTA; Vocabulary: ICD-9-CM Diagnoses(Active) Hand pain-swelling Date: 04/30/2014 ; Diagnosis Type: Reason For Visit ; Confirmation: Complaint of ; Clinical Dx: Hand pain-swelling ; Classification: Medical ; Clinical Service: Emergency medicine ; Code: PNED ; Probability: 0 ; Diagnosis Code: [id number] Triage Chief Complaint Description : was stung by bee last grace and awoke this am with left wrist and hand swollen and red. Information Given By : Patient Accompanied By : Alone Mode of Arrival ED : Private vehicle, Ambulatory Track : Medical Languages : Malaysian Patient Informed of Triage Location : Emergency [...] : 4 -Less Urgent Tracking Group : [facility] ED BAMBI ADDISON SHRUTHI - 04/30/2014 16:11 CDT Allergy (As Of: 04/30/2014 16:17:45 CDT) Allergies (Active) penicillins Estimated Onset Date: Unspecified ; Created By: GLEN ACOSTA; Reaction Status: Active ;Category: Drug ; Substance: penicillins ; Type: Allergy ; Updated By: GLEN ACOSTA; Reviewed Date: 03/13/2014 13:40 CDT Source: [employer] Document Id: [id number] CDT!49 documented in this encounter Miscellaneous Notes Miscellaneous - Bambi Addison R.N. - 04/30/2014 7:00 PM CDT Valuables/Belongings Valuables/Belongings Entered On: 04/30/2014 19:00 CDT Performed On: 04/30/2014 19:00 CDT by BAMBI ADDISON RN Valuables/Belongings Valuables/Belongings Grid Valuables with Patient Clothes, Patient Valuables : Pants, Shirt, Shoes, Undergarments Electronic Devices : Cell phone BAMBI ADDISON RN - 04/30/2014 19:00 CDT Source: [employer] Document Id: [id number] CDT!6 Miscellaneous - Bambi Addison R.N. - [...] Control : 5 Lynx Visit Level : 95644 Level 3 Treatments Prior to Arrival : None BAMBI ADDISON RN - 04/30/2014 19:00 CDT Source: [facility] [employer] Document Id: [id number] CDT!18 documented in this encounter Plan of Treatment Scheduled Procedures Name Priority Associated Diagnoses Date/Time COLONOSCOPY Diarrhea documented as of this encounter Visit Diagnoses Not on filedocumented in this encounter Additional Health Concerns Assessment Noted Time PHQ-9 Depression Total Score: 16 04/02/2014 9:58 AM CD T documented as of this encounter
--- OUTSIDE RECORDS SUMMARY | 2022-07-08 08:58 | XMS_ITS | Encounter Summary ---
:1985 Author Organization [facility] Address [address] [place] [address] Care Team Providers Name Role Phone Unavailable Primary Care Provider Unavailable Encounter Details Date Type Department Care Team Description 01/25/2013 Hospital Encounter HX [facility] Renuka Choi [place]D. [address] [place] [phone] (Wo rk) Social History Tobacco [...] How often do you attend muslim or anabaptism More than 4 time s [...] Borges M.D. - 01/25/2013 9:45 AM CDT [id number] SUBJECTIVE: Carol Juarez is an 27 year [...] line 8-2-10, 06/11/10 Alcohol Use: Yes rare Com Writer History: No history of STDs. PAP NIL [...] to procedure - YES. ASSESSMENT: Satisfactory annual obstetrician gynecologist exam Desires Mirena IUD removal and re-insertion Obesity PLAN: Dx: 1) Pap smear 2) GC/CT 3) Fasting lipid profile/ fasting glucose/ TSH with reflex free T4 4) Mirena IUD removed/ IUD re-insertion. Will check a TVUS to confirm proper placement PE: Reviewed health maintenance including diet, regular exercise and periodic exams. Source: [facility] RWHXTRANSXRTFSYS Document Id: [id number] Electronically signed by Conversion, [facility] Sanitation Truck Cleaner [id number] at 01/18/2017 6:08 PM CDT documented in this encounter Miscellaneous Notes Miscellaneous - Nyasia Borges M.D. - 01/25/2013 9:45 AM CDT [id number] January 30, 2013 Carol Juarez [address] [place] [phone] Your doctor has requested to have you return for a thryoid, glucose, and cholesterol test at this time. You may call our office at [phone] in Obstetrics/Gynecology to schedule an appointment. Please ask to schedule a LAB APPOINTMENT Please disregard this notice if you already have had this lab repeated or have already made an appointment. 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 trachomatis rRNA by employee relations manager mediated amplification. A negative result by employee relations manager media pipe amplification does not preclude the presence of C. trachomatis infection bec ause results are dependent on proper and adequate collection, absence of inhi bitors, and sufficient rRNA to be detected. Historical Provider LAB HISTORICAL ORDERS Performing Organization Address City/[facility]/ZIP Code Phon e Number [facility] HX SN - SPEC - DESCRIPTION (01/26/2013 2:02 PM CDT) P athologist Signature HXSPECIMAN Cervix [facility] Specimen (Source) Anatomical Collection Method Collection Time Re ceived Time Location / / Volume Laterality 01/26/2013 2:02 PM CDT Historical Provider LAB HISTORICAL ORDERS Performing Organization Address City/State/ZIP Code Phon e Number [facility] Chlamydia trachomatis Amplified RNA (01/26/2013 2:02 PM CDT) Specimen (Source) Anatomical Collection Method Collection Time Re ceived Time Location / / Volume Laterality 01/26/2013 2:02 PM CDT Narrative [facility] - 10/23/19 14 9:59 PM 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 gonorrhoeae rRNA by employee relations manager mediated amplification. A negative result by employee relations manager media pipe amplification does not preclude the presence of N. gonorrhoeae infection bec ause results are dependent on proper and adequate collection, absence of inhi bitors, and sufficient rRNA to be detected. Historical Provider LAB MICROBIOLOGY - GENERAL O RDERABLES Performing Organization Address City/[facility]/ZIP Code Phon e Number [facility] HX SN - SPEC - DESCRIPTION (01/26/2013 2:02 PM CDT) P athologist Signature HXSPECIMAN Cervix [facility] Specimen (Source) Anatomical Collection Method Collection Time Re ceived Time Location / / Volume Laterality 01/26/2013 2:02 PM CDT Historical Provider LAB HISTORICAL ORDERS Performing Organization Address City/State/ZIP Code Phon e Number [facility] documented in this encounter Visit Diagnoses Not on filedocumented in this encounter
--- OUTSIDE RECORDS SUMMARY | 2022-07-08 08:58 | XMS_ITS | Encounter Summary ---
:1985 Author Organization [facility] Address [address] [place] [address] Care Team Providers Name Role Phone Unavailable Primary Care Provider Unavailable Encounter Details Date Type Department Care Team Description 04/07/2013 Hospital Encounter [facility]X [facility] Ysabel Reyes R.NBrittaney [address] [phone] Social History Tobacco Use Types [...] How often do you attend samaritan or hoahaoism More than 4 time s [...] Reyes R.N. - 04/07/2013 12:00 AM CDT [id number] Bug bite on Wednesday when she was in [place]. Pt stated bug was a flying not [...] Allergies reviewed and problem list reviewed. Source: [facility] RWHXTRANSXRTFSYS Document Id: [id number] documented in this encounter Plan of Treatment Scheduled Procedures Name Priority Associated Diagnoses Date/Time COLONOSCOPY Diarrhea documented as of this encounter Visit Diagnoses Not on filedocumented in this encounter
--- OUTSIDE RECORDS SUMMARY | 2022-07-08 08:58 | XMS_ITS | Encounter Summary ---
:1985 Author Organization [facility] Address [address] [place] [address] Care Team Providers Name Role Phone Unavailable [...] How often do you attend sabianism or anabaptist More than 4 time s [...]
--- OUTSIDE RECORDS SUMMARY | 2022-07-08 08:58 | XMS_ITS | Encounter Summary ---
:1985 Author Organization [facility] Address [address] [place] [address] Care Team Providers Name Role Phone Unavailable [...] How often do you attend mormonism or evangelical More than 4 time s [...]
--- OUTSIDE RECORDS SUMMARY | 2022-07-08 08:59 | XMS_ITS | Encounter Summary ---
:1985 Author Organization [facility] Address [address] [place] [address] Care Team Providers Name Role Phone Unavailable [...] How often do you attend scientologist or religion More than 4 time s [...]
--- OUTSIDE RECORDS SUMMARY | 2022-07-08 08:59 | XMS_ITS | Encounter Summary ---
:1985 Author Organization [facility] Address [address] [place] [address] Care Team Providers Name Role Phone Unavailable Primary Care Provider Unavailable Encounter Details Date Type Department Care Team Description 07/09/2011 Hospital Encounter HX [facility] Yamel Koch M.D. 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 You may call our office at [phone] to schedule an appointment for your six (6) month follow-up visit. Please disregard this notice if you have already made an appointment. Sincerely, [facility] Source: [facility] Document Id: [id number] documented in this encounter Plan of Treatment Scheduled Procedures Name Priority Associated Diagnoses Date/Time COLONOSCOPY Diarrhea documented as of this encounter Visit Diagnoses Not on filedocumented in this encounter
--- OUTSIDE RECORDS SUMMARY | 2022-07-08 08:59 | XMS_ITS | Encounter Summary ---
:1985 Author Organization [facility] Address [address] [place] [address] Care Team Providers Name Role Phone Unavailable [...]
--- OUTSIDE RECORDS SUMMARY | 2022-07-08 08:59 | XMS_ITS | Encounter Summary ---
:1985 Author Organization [facility] Address [address] [place] [address] Care Team Providers Name Role Phone Unavailable [...] How often do you attend zoroastrianism or presybeterian More than 4 time s [...]
--- OUTSIDE RECORDS SUMMARY | 2022-07-08 08:59 | XMS_ITS | Encounter Summary ---
:1985 Author Organization [facility] Address [address] [place] [address] Care Team Providers Name Role Phone Unavailable [...]
--- OUTSIDE RECORDS SUMMARY | 2022-07-08 08:59 | XMS_ITS | Encounter Summary ---
:1985 Author Organization [facility] Address [address] [place] [address] Care Team Providers Name Role Phone Unavailable Primary Care Provider Unavailable Encounter Details Date Type Department Care Team Description 08/28/2011 Hospital Encounter HX NO MAPPING Nelson Bernal M.D. [address] [place] [phone] (Wo rk) Social History Tobacco [...] How often do you attend faith or scientologist More than 4 time s [...]
--- OUTSIDE RECORDS SUMMARY | 2022-07-08 08:59 | XMS_ITS | Encounter Summary ---
:1985 Author Organization [facility] Address [address] [place] [address] Care Team Providers Name Role Phone Unavailable Primary Care Provider Unavailable Encounter Details Date Type Department Care Team Description 06/11/2010 Hospital Encounter HX [facility] Yamel Koch M.D. [address] [place] [address] (Wo rk) Social History Tobacco [...] How often do you attend baptism or denominational More than 4 time s [...] Giang M.D. - 06/11/2010 2:45 PM CDT [id number] Chief Complaint: Chief Complaint Patient presents with [...] squeezing or trying to pop this. Source: [facility] RWHXTRANSXRTFSYS Document Id: [id number] documented in this encounter Plan of Treatment Scheduled Procedures Name Priority Associated Diagnoses Date/Time COLONOSCOPY Diarrhea documented as of this encounter Visit Diagnoses Not on filedocumented in this encounter
--- OUTSIDE RECORDS SUMMARY | 2022-07-08 08:59 | XMS_ITS | Encounter Summary ---
:1985 Author Organization [facility] Address [address] [place] [address] Care Team Providers Name Role Phone Unavailable [...] How often do you attend jew or taoism More than 4 time s [...] Provider Ser - 02/17/2011 12:00 AM CDT [id number] LETTER Carol Juarez [address] [id number] [facility] [address] [facility] February 17, 2011 Dear Carol: Our records [...] please call at your earliest convenience at [phone] or, toll-free at . Thank you, [facility] Source: [facility] Document Id: [id number] documented in this encounter Plan of Treatment Scheduled Procedures Name Priority Associated Diagnoses Date/Time COLONOSCOPY Diarrhea documented as of this encounter Visit Diagnoses Not on filedocumented in this encounter
--- OUTSIDE RECORDS SUMMARY | 2022-07-08 08:59 | XMS_ITS | Encounter Summary ---
:1985 Author Organization [facility] Address [address] [place] [address] Care Team Providers Name Role Phone Unavailable Primary Care Provider Unavailable Encounter Details Date Type Department Care Team Description 08/28/2011 Hospital Encounter HX [facility] Jairon Wolf M.D. [address] [place] [address] [phone] (Wo rk) Social History Tobacco [...] How often do you attend zoroastrian or mandaeism More than 4 time s [...] Roberts M.D. - 08/28/2011 2:10 PM CST [id number] CC: follow up ER visit HPI: Carol [...] negative. GI: negative. BREAST: negative. : negative. 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 CV: negative. PULMONARY: No shortness of breath, dyspnea on exertion, cough, or hemoptysis. MUSCULOSKELETAL: negative. PSYCH: negative. PHYSICAL EXAM: This is a well-developed, well-nourished female in no apparent distress. Vitals: BP 126/78 Ht 1.588 m (5' 2.5) Wt 122.244 kg (269 lb 8 oz) BMI 48.51 kg/m2 Source: [facility] Document Id: [id number] Electronically signed by Conversion, [facility] Log Carrier Operator [id number] at 01/23/2017 2:30 PM CDT documented in this encounter Miscellaneous Notes Miscellaneous - Mary Teran L.PBrittaneyN. - 08/28/2011 2:10 PM CST [id number] Carol Juarez [address] [facility] [address] [facility] August 31, 2011 Dear Juarez: I am writing to inform you the results of the laboratory tests you had done during your recent visitto the clinic. Your results included : STD tests (chlamydia and gonorrhea) were all negative. It was a pleasure to see you in the clinic. If you have any further questions or problems, please contact our office at [phone]. Sincerely, Dr Obie Roberts Dept. BODY LINER [facility] Source: [facility] Document Id: [id number] Electronically signed by Conversion, [facility] Log Carrier Operator [id number] at 01/23/2017 2:30 PM CDT documented in this encounter Plan of Treatment Scheduled Procedures Name Priority Associated Diagnoses Date/Time COLONOSCOPY Diarrhea documented as of this encounter Procedures Procedure Name Priority Date/Time Associated Comments Diagnosis HX SN - SPEC - Routine 08/30/2011 3:07 PM Results for this DESCRIPTION AUTO TRANSMISSION MECHANIC procedure are i n the results section. HX SN - SPEC - Routine 08/30/2011 3:07 PM Results for this DESCRIPTION AUTO TRANSMISSION MECHANIC procedure are i n the results section. HX CHLAMYDIA Routine 08/30/2011 3:07 PM Results f or this TRACHOMATIS AMPLIFIED AUTO TRANSMISSION MECHANIC proced ure are in DNA-ID the results section. CHLAMYDIA TRACHOMATIS Routine 08/30/2011 3:07 PM Results for this AMPLIFIED RNA AUTO TRANSMISSION MECHANIC procedure are in the results section. documented in this encounter Results Chlamydia trachomatis Amplified RNA (08/30/2011 3:07 PM AUTO TRANSMISSION MECHANIC) Specimen (Source) Anatomical Collection Method Collection Time Re ceived Time Location / / Volume Laterality 08/30/2011 3:07 PM AUTO TRANSMISSION MECHANIC Narrative [facility] - 10/23/19 14 7:05 PM AUTO TRANSMISSION MECHANIC Negative for N. gonorrhoeae rRNA by pediatric physical therapy assistant mediated amplification. A negative result by pediatric physical therapy assistant media pipe amplification does not preclude the presence of N. gonorrhoeae infection bec ause results are dependent on proper and adequate collection, absence of inhi bitors, and sufficient rRNA to be detected. Historical Provider LAB MICROBIOLOGY - GENERAL O RDERABLES Performing Organization Address City/State/ZIP Code Phon e Number [facility] HX SN - SPEC - DESCRIPTION (08/30/2011 3:07 PM AUTO TRANSMISSION MECHANIC) [facility] gist Method Time Signature HXSPECIMAN Endocervical [facility] Specimen (Source) Anatomical Collection Method Collection Time Re ceived Time Location / / Volume Laterality 08/30/2011 3:07 PM AUTO TRANSMISSION MECHANIC Historical Provider LAB HISTORICAL ORDERS Performing Organization Address [facility]/ZIP Code Phon e Number [facility] HX CHLAMYDIA TRACHOMATIS AMPLIFIED DNA-ID (08/30/2011 3:07 PM AUTO TRANSMISSION MECHANIC) Specimen (Source) Anatomical Collection Method Collection Time Re ceived Time Location / / Volume Laterality 08/30/2011 3:07 PM AUTO TRANSMISSION MECHANIC [facility] - 10/23/19 14 7:05 PM AUTO TRANSMISSION MECHANIC Negative for C. trachomatis rRNA by pediatric physical therapy assistant mediated amplification. A negative result by pediatric physical therapy assistant media pipe amplification does not preclude the presence of C. trachomatis infection bec ause results are dependent on proper and adequate collection, absence of inhi bitors, and sufficient rRNA to be detected. Historical Provider LAB HISTORICAL ORDERS Performing Organization Address City/[facility]/ZIP Code Phon e Number [facility] HX SN - SPEC - DESCRIPTION (08/30/2011 3:07 PM AUTO TRANSMISSION MECHANIC) [facility] g[facility] Method Time Signature HXSPECIMAN Endocervical [facility] Specimen (Source) Anatomical Collection Method Collection Time Re ceived Time Location / / Volume Laterality 08/30/2011 3:07 PM AUTO TRANSMISSION MECHANIC Historical Provider LAB HISTORICAL ORDERS Performing Organization Address City/State/ZIP Code Phon e Number [facility] documented in this encounter Visit Diagnoses Not on filedocumented in this encounter
--- OUTSIDE RECORDS SUMMARY | 2022-07-08 08:59 | XMS_ITS | Encounter Summary ---
:1985 Author Organization [facility] Address [address] [place] [address] Care Team Providers Name Role Phone Unavailable [...] How often do you attend temple or temple More than 4 time s [...]
--- OUTSIDE RECORDS SUMMARY | 2022-07-08 08:59 | XMS_ITS | Encounter Summary ---
:1985 Author Organization [facility] Address [address] [place] [address] Care Team Providers Name Role Phone Unavailable [...] How often do you attend mandaeism or islam More than 4 time s [...]
--- OUTSIDE RECORDS SUMMARY | 2022-07-08 08:59 | XMS_ITS | Encounter Summary ---
:1985 Author Organization [facility] Address [address] [place] [address] Care Team Providers Name Role Phone Unavailable Primary Care Provider Unavailable Encounter Details Date Type Department Care Team Description 09/29/2010 Hospital Encounter HX [facility] Yamel Koch M.D. [address] [place] [address] (Wo rk) Social History Tobacco [...] How often do you attend congregation or uatsdin More than 4 time s [...] Giang M.D. - 09/29/2010 9:00 AM CST [id number] Chief Complaint: Chief Complaint Patient presents with [...] Rating was 13, which is improved. Source: [facility] RWMCHXTRANSXRTFSYS Document Id: [id number] Electronically signed by Roland, [facility] Executive Services Administrator [id number] at 01/23/2017 9:40 PM CDT documented in this encounter Plan of Treatment Scheduled Procedures Name Priority Associated Diagnoses Date/Time COLONOSCOPY Diarrhea documented as of this encounter Visit Diagnoses Not on filedocumented in this encounter
--- OUTSIDE RECORDS SUMMARY | 2022-07-08 08:59 | XMS_ITS | Encounter Summary ---
:1985 Author Organization [facility] Address [address] [place] [address] Care Team Providers Name Role Phone Unavailable Primary Care Provider Unavailable Encounter Details Date Type Department Care Team Description 07/15/2010 Hospital Encounter [facility]X [facility] Provider, [facility] Social History Tobacco Use Types Packs/Day Years [...] How often do you attend christian or congregation More than 4 time s [...] Provider Ser - 07/15/2010 12:00 AM CST [id number] TELEPHONE TRIAGE ENCOUNTER FORM Date: 07/15/2010 PCP: Venu Yousif MD, MD Patient Name: Carol Juarez Gender: female : 1985 Age: [age] year old Time: 4:45 PM Phone Numbers: [phone] (home) Pharmacy: [facility] ASSESSMENT Presenting Problem: Depression Subjective/objective: [...] way prior to scheduled appointment time. Source: [facility] RWHXTRANSXRTFSYS Document Id: [id number] documented in this encounter Plan of Treatment Scheduled Procedures Name Priority Associated Diagnoses Date/Time COLONOSCOPY Diarrhea documented as of this encounter Visit Diagnoses Not on filedocumented in this encounter
--- OUTSIDE RECORDS SUMMARY | 2022-07-08 08:59 | XMS_ITS | Encounter Summary ---
:1985 Author Organization [facility] Address [address] [place] [address] Care Team Providers Name Role Phone Unavailable [...]
--- OUTSIDE RECORDS SUMMARY | 2022-07-08 08:59 | XMS_ITS | Encounter Summary ---
:1985 Author Organization [facility] Address [address] [place] [address] Care Team Providers Name Role Phone Unavailable [...]
--- OUTSIDE RECORDS SUMMARY | 2022-07-08 08:59 | XMS_ITS | Encounter Summary ---
:1985 Author Organization [facility] Address [address] [place] [address] Care Team Providers Name Role Phone Unavailable Primary Care Provider Unavailable Encounter Details Date Type Department Care Team Description 08/28/2011 Hospital Encounter HX NO MAPPING Nelson Bernal M.D. [address] [place] [address] 5 [phone] (Wo rk) Social History Tobacco [...] How often do you attend anglican or voodoo More than 4 time s [...]
--- OUTSIDE RECORDS SUMMARY | 2022-07-08 08:59 | XMS_ITS | Encounter Summary ---
:1985 Author Organization [facility] Address [address] [place] [address] Care Team Providers Name Role Phone Unavailable Primary Care Provider Unavailable Encounter Details Date Type Department Care Team Description 01/06/2011 Hospital Encounter HX [facility] Yamel Koch M.D. [address] [place] [address] (Wo rk) Social History Tobacco [...] How often do you attend advent or druze More than 4 time s [...] Giang M.D. - 01/06/2011 10:45 AM CDT [id number] Chief Complaint Patient presents with Headache talk [...] future for headaches, if not improved. Source: [facility] Document Id: [id number] documented in this encounter Plan of Treatment Scheduled Procedures Name Priority Associated Diagnoses Date/Time COLONOSCOPY Diarrhea documented as of this encounter Visit Diagnoses Not on filedocumented in this encounter
--- OUTSIDE RECORDS SUMMARY | 2022-07-08 08:59 | XMS_ITS | Encounter Summary ---
:1985 Author Organization [facility] Address [address] [place] [address] Care Team Providers Name Role Phone Unavailable [...] How often do you attend sikhism or hindu More than 4 time s [...] Provider Ser - 11/13/2010 12:00 AM CDT [id number] MARIA T Juarez [address] [facility] [address] [facility] November 13, 2010 Dear Carol: Our records indicate that you recently cancelled your appointment with Kaye Magallanes, Ph.D., L.P.. Thank you for notifying our office. Your next scheduled appointment is: Sunday, November 28, 2010 at 11:00 AM If you are unable to keep this appointment, please call the [facility] Department at your earliest convenience at or toll-free at to or cancel or reschedule. We look forward to hearing from you. Thank you, [facility]: [facility] Document Id: [id number] documented in this encounter Plan of Treatment Scheduled Procedures Name Priority Associated Diagnoses Date/Time COLONOSCOPY Diarrhea documented as of this encounter Visit Diagnoses Not on filedocumented in this encounter
--- OUTSIDE RECORDS SUMMARY | 2022-07-08 08:59 | XMS_ITS | Encounter Summary ---
:1985 Author Organization [facility] Address [address] [place] [address] Care Team Providers Name Role Phone Unavailable [...] How often do you attend cheondoism or evangelical More than 4 time s [...]
--- OUTSIDE RECORDS SUMMARY | 2022-07-08 08:59 | XMS_ITS | Encounter Summary ---
:1985 Author Organization [facility] Address [address] [place] [address] Care Team Providers Name Role Phone Unavailable Primary Care Provider Unavailable Encounter Details Date Type Department Care Team Description 01/06/2011 Hospital Encounter [facility] Provider, Historic al Social History Tobacco [...] How often do you attend lutheran or christianity More than 4 time s [...]
--- OUTSIDE RECORDS SUMMARY | 2022-07-08 08:59 | XMS_ITS | Encounter Summary ---
:1985 Author Organization [facility] Address [address] [place] [address] Care Team Providers Name Role Phone Unavailable Primary Care Provider Unavailable Encounter Details Date Type Department Care Team Description 08/28/2011 Hospital Encounter HX [facility] Celia Schwab RRoverto Social History Tobacco Use [...] How often do you attend mandaen or zoroastrian More than 4 time s [...] Dejesus R.N. - 08/28/2011 12:00 AM CST [id number] Appointment requested for: check my IUD Subjective [...] Obstetrics &Gynecology page 261, 264 Appointment scheduled: management aide today Source: [facility] RWHXTRANSXRTFSYS Document Id: [id number] Electronically signed by Roland, [facility] Fingerprint Expert [id number] at 01/23/2017 2:30 PM CDT documented in this encounter Plan of Treatment Scheduled Procedures Name Priority Associated Diagnoses Date/Time COLONOSCOPY Diarrhea documented as of this encounter Visit Diagnoses Not on filedocumented in this encounter
--- OUTSIDE RECORDS SUMMARY | 2022-07-08 08:59 | XMS_ITS | Encounter Summary ---
:1985 Author Organization [facility] Address [address] [place] [address] Care Team Providers Name Role Phone Unavailable [...] often do you attend jehovah's witness or orthodox More than 4 time s [...]
--- OUTSIDE RECORDS SUMMARY | 2022-07-08 08:59 | XMS_ITS | Encounter Summary ---
:1985 Author Organization [facility] Address [address] [place] [address] Care Team Providers Name Role Phone Unavailable [...] How often do you attend presybeterian or spiritism More than 4 time s [...]
--- OUTSIDE RECORDS SUMMARY | 2022-07-08 08:59 | XMS_ITS | Encounter Summary ---
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 Initial 45 minute appointments have been scheduled in our Psychology Department with: Kaye Magallanes, Ph.D., L.P. Sunday, August 01, 2010 at 11:00 AM Wednesday, August 29, 2010 at 10:00 AM Wednesday, September 12, 2010 at 11:00 AM located on the 3rd floor: [facility] at [address] [place] [address]. If the above scheduled appointment is not [...] be a pleasant and worthwhile one. Sincerely, [facility] Contact Information July 16, 2010 Intake done by: Humaira EMR#: [id number] NAME: Carol Juarez SSN: [id number] : 1985 Age: [age] year old Sex: female Spouse/ S.O.: - Parent/Guardian: - ADDRESS: [address] [place] [address] [place] Phone Numbers: [phone] (home) Phone Contact: Home: Yes Messages: Yes Written Contact: Home: Yes Work: No Payor: [facility] Plan: [facility] Product Type: Indemnity Court Ordered/Litigation No Referral Information Caller: self Referred by: elie Location: Referred to: monty Prior Contact with [facility]? No Date: - Doctor seen: NA [...] Packet Sent on Wait List No Source: [facility] RWHXTRANSXRTFSYS Document Id: [id number] documented in this encounter Plan of Treatment Scheduled Procedures Name Priority Associated Diagnoses Date/Time COLONOSCOPY Diarrhea documented as of this encounter Visit Diagnoses Not on filedocumented in this encounter
--- OUTSIDE RECORDS SUMMARY | 2022-07-08 08:59 | XMS_ITS | Encounter Summary ---
:1985 Author Organization [facility] Address [address] [place] [address] Care Team Providers Name Role Phone Unavailable [...] How often do you attend faith or jain More than 4 time s [...] Historical Provider Ser - 08/17/2011 12:00 AM ACCOUNTING CLERKS SUPERVISOR [id number] LETTER Carol Juarez [facility] [address] [facility] [address] [facility] August 17, 2011 Dear Carol: Our records indicate that you recently cancelled your appointment with Kaye Magallanes, Ph.D., L.P.. Thank you for notifying our office. Your next scheduled appointment is: August at 3:00 PM If you are unable to keep this appointment, please call the [facility] Department at your earliest convenience at or toll-free at to or cancel or reschedule. We look forward to hearing from you. Thank you, [facility] Source: [facility] Document Id: [id number] documented in this encounter Plan of Treatment Scheduled Procedures Name Priority Associated Diagnoses Date/Time COLONOSCOPY Diarrhea documented as of this encounter Visit Diagnoses Not on filedocumented in this encounter
--- OUTSIDE RECORDS SUMMARY | 2022-07-08 08:59 | XMS_ITS | Encounter Summary ---
:1985 Author Organization [facility] Address [address] [place] [address] Care Team Providers Name Role Phone Unavailable [...] How often do you attend bahai or worship More than 4 time s [...]
--- OUTSIDE RECORDS SUMMARY | 2022-07-08 08:59 | XMS_ITS | Encounter Summary ---
:1985 Author Organization [facility] Address [address] [place] [address] Care Team Providers Name Role Phone Unavailable [...] How often do you attend latter-day or sikh More than 4 time s [...]
--- OUTSIDE RECORDS SUMMARY | 2022-07-08 08:59 | XMS_ITS | Encounter Summary ---
:1985 Author Organization [facility] Address [address] [place] [address] Care Team Providers Name Role Phone Unavailable Primary Care Provider Unavailable Encounter Details Date Type Department Care Team Description 06/27/2010 Hospital Encounter HX [facility] Moon Figueredo, P.A.-C. [address] [place] [address] (Wo rk) Social History Tobacco Use Types [...] How often do you attend jainism or congregational More than 4 time s [...] Ellsworth P.A.-C. 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 Takes OTC Tylenol [...] 1 Years of Education: [address] [facility] [employer] [facility] Social History Main Topics Tobacco Use: [...] non-tender, No masses, organomegaly, Bowel sounds normoactive Pin Attacher: external genitalia normal, vaginal mucosa normal, cervix [...] and is in agreement with plan. Source: [facility] RWHXTRANSXRTFSYS Document Id: [id number] Electronically signed by Conversion, [facility] Airfield Defence Guard [id number] at 01/24/2017 1:07 PM CDT documented in this encounter Miscellaneous Notes Miscellaneous - Conversion, Historical Provider Ser - 06/27/2010 10:00 AM CDT [id number] Carol Pearsonford [address] [facility] [address] [place] [address] [facility] July 01, 2010 Dear Carol Juarez, I am happy to inform you that your recent cervical cancer screening test (PAP smear) was normal. Preventative screening such as this helps insure your health for years to come. Congratulations for taking care of yourself! Please contact my office if you have any further questions. [phone]. Sincerely, CASSIE Mcintosh OBSTETRICS/GYNECOLOGY [facility] Source: [facility] Document Id: [id number] Miscellaneous - Gloria Ellsworth P.A.-C. - 06/27/2010 10:00 AM CDT [id number] [facility] MAINTENANCE TECHNICIAN 3RD SHIFT [address] [place] [address] July 03, 2010 Carol Juarez [address] [facility] [address] [place] [address] [facility] Dear Ms. Juarez., This letter is sent to inform you of recent laboratory test results and to provide you with personalrecords of health information. Your Pap and chlamydia tests were negative. Thank you for allowing me to participate in your care. If you have any further questions or problems, please contact me at [phone]. Sincerely, Gloria Ellsworth PA-C Source: [facility] Document Id: [id number] Electronically signed by Conversion, [facility] Airfield Defence Guard [id number] at 01/24/2017 1:07 PM CDT documented in this encounter Plan of Treatment Scheduled Procedures Name Priority Associated Diagnoses Date/Time COLONOSCOPY Diarrhea documented as of this encounter Visit Diagnoses Not on filedocumented in this encounter
--- OUTSIDE RECORDS SUMMARY | 2022-07-08 09:00 | XMS_ITS | Encounter Summary ---
:[address] [facility] Address [address] [place] [address] Care Team Providers Name Role Phone Unavailable Primary Care Provider Unavailable Encounter Details Date Type Department Care Team Description 02/17/2010 Hospital Encounter HX NO MAPPING Berny Garcia M.D. [address] [place], [place] [address] (Wo rk) Social History [...] How often do you attend congregational or jain More than 4 time s [...]
--- OUTSIDE RECORDS SUMMARY | 2022-07-08 09:00 | XMS_ITS | Encounter Summary ---
:1985 Author Organization [facility] Address [address] [place] [address] Care Team Providers Name Role Phone Unavailable Primary Care Provider Unavailable Encounter Details Date Type Department Care Team Description 05/19/[address] [facility] INPT/OBSRV Chon Babin M.D. [address] [place], [place] [id number] (Wo rk) Social History Tobacco Use Types [...]
--- OUTSIDE RECORDS SUMMARY | 2022-07-08 09:00 | XMS_ITS | Encounter Summary ---
:1985 Author Organization [facility] Address [address] [place] [address] Care Team Providers Name Role Phone Unavailable [...] How often do you attend shinto or adventist More than 4 time s [...]
--- OUTSIDE RECORDS SUMMARY | 2022-07-08 09:00 | XMS_ITS | Encounter Summary ---
:1985 Author Organization [facility] Address [address] [place] [address] Care Team Providers Name Role Phone Unavailable [...] How often do you attend caodaism or muslim More than 4 time s [...] Provider Ser - 12/30/2007 7:10 AM CDT [id number] Source: [facility] Document Id: [id number] Miscellaneous - Conversion, Historical Provider Ser - 12/30/2007 7:10 AM CDT [id number] December 30, 2007 Carol Dowell [place] [id number] OB Admit History & Physical 2007 Carol [...] N/A Years of Education: 13 Occupational History [employer] Social History Main Topics Tobacco [...] Negative GI: Negative BREAST: Negative : Negative UTILITY PERSON: As above CV: Negative PULMONARY: Negative MUSCULOSKELETAL: Negative PSYCH: Negative PE: BP 108/80 Gen: A&O, NAD CV: RRR Chest: CTA bilat Abd: Gravid, NT, vtx by Christiane, EFW 3900g by Christiane Ext: No CT, 1+ edema, DTR tr bilat, no clonus SVE: Deferred FHT: 140, ave LTV, +accels [place]: Irritability Amnisure: Negative Ltd ultrasound performed. Cephalic presentation confirmed. A/P: 21 y/o @ 40w2 (10) with: 1. IOL: Will proceed with 2nd attempt at induction with pitocin. 2. Gestational HTN: No e/o pree. Bp OK today. Will follow 3. GBS negative 4. status reassuring. Rylee Grijalva MD Dept of JUNK DEALER Source: [facility] Document Id: [id number] Miscellaneous - Conversion, Historical Provider Ser - 12/30/2007 7:10 AM CDT [id number] [facility] [address] [facility], [address] Name: Carol Juarez Birthdate: 1985 [facility] Admission Date: 12/30/2007 Allergy: No known [...] minutes. Dr. Rylee Grijalva MD 12/30/2007 Source: [facility] RWHXTRANSXRTFSYS Document Id: [id number] Miscellaneous - Conversion, Historical Provider Ser - 12/30/2007 7:10 AM CDT [id number] [facility] [address] [facility], [address] Name: Carol Juarez Birthdate: 1985 SSN: [id number] [facility] Allergy: No known allergies Discharge Date: [...] water breaks Diet: regular Appointment(s): Please call [phone] on Wednesday for an appt. Make appt for Wednesday01/02/08 forOB check and NST. I have all of my belongings . I understand my discharge instructions. My medications were reviewed with me. Patient's Signature: Nurse Discharging this patient signature: RN Signature & Date: Spencer Schuster RN Date: 12/30/2007 Please see paper chart for additional discharge documentation info: (time, how & by). Source: [facility] RWHXTRANSXRTFSYS Document Id: [id number] documented in this encounter Plan of Treatment Scheduled Procedures Name Priority Associated Diagnoses Date/Time COLONOSCOPY Diarrhea documented as of this encounter Visit Diagnoses Not on filedocumented in this encounter
--- OUTSIDE RECORDS SUMMARY | 2022-07-08 09:00 | XMS_ITS | Encounter Summary ---
:1985 Author Organization [facility] Address [address] [place] [address] Care Team Providers Name Role Phone Unavailable Primary Care Provider Unavailable Encounter Details Date Type Department Care Team Description 01/02/[address] [facility] Casi Vo M.D. [address] [place], [place] [phone] (Wo rk) Social History [...] How often do you attend lutheran or mandaeism More than 4 time s [...] Grove M.D. - 01/02/2008 9:30 AM CDT [id number] Here for NST/ANA LUISA. Failed IOL last week for PIH. Was on BR all weekend BP normal today. O: ANA LUISA=4.5 A/P Gestational Age: 40w 5d , oligohydramnios. history of evolving PIH but BPs have been normal on BR. Admit. KG Source: [facility] RWHXTRANSXRTFSYS Document Id: [id number] Electronically signed by Conversion, [facility] Access Specialist [id number] at 01/25/2017 4:45 AM CDT documented in this encounter Plan of Treatment Scheduled Procedures Name Priority Associated Diagnoses Date/Time COLONOSCOPY Diarrhea documented as of this encounter Visit Diagnoses Not on filedocumented in this encounter
--- OUTSIDE RECORDS SUMMARY | 2022-07-08 09:00 | XMS_ITS | Encounter Summary ---
:1985 Author Organization [facility] Address [address] [place] [address] Care Team Providers Name Role Phone Unavailable Primary Care Provider Unavailable Encounter Details Date Type Department Care Team Description 02/22/2009 Hospital Encounter HX NO MAPPING Rizwan Dean M.D. [address] [place], [place] [phone] (Wo rk) Social History [...] How often do you attend christianity or baptism More than 4 time s [...]
--- OUTSIDE RECORDS SUMMARY | 2022-07-08 09:00 | XMS_ITS | Encounter Summary ---
:1985 Author Organization [facility] Address [address] [place] [address] Care Team Providers Name Role Phone Unavailable Primary Care Provider Unavailable Encounter Details Date Type Department Care Team Description 02/04/2010 Hospital Encounter [facility] Yamel Koch M.D. [address] [place] [address] (Wo rk) Social History Tobacco [...] How often do you attend lutheran or roman catholic More than 4 time [...] Giang M.D. - 02/04/2010 9:00 AM CDT [id number] Chief Complaint Patient presents with Abdominal Pain [...] well. Wet prep reviewed and normal. Source: [facility] RWHXTRANSXRTFSYS Document Id: [id number] Electronically signed by Conversion, [facility] Customer Relations Assistant [id number] at 01/24/2017 11:08 AM CDT documented in this encounter Plan of Treatment Scheduled Procedures Name Priority Associated Diagnoses Date/Time COLONOSCOPY Diarrhea documented as of this encounter Visit Diagnoses Not on filedocumented in this encounter
--- OUTSIDE RECORDS SUMMARY | 2022-07-08 09:00 | XMS_ITS | Encounter Summary ---
:1985 Author Organization [facility] Address [address] [place] [address] Care Team Providers Name Role Phone Unavailable Primary Care Provider Unavailable Encounter Details Date Type Department Care Team Description 03/27/2009 Hospital Encounter [facility] Provider, [facility] Social History Tobacco Use Types Packs/Day [...] How often do you attend yazidi or evangelical More than 4 time s [...]
--- OUTSIDE RECORDS SUMMARY | 2022-07-08 09:00 | XMS_ITS | Encounter Summary ---
:1985 Author Organization [facility] Address [address] [place] [address] Care Team Providers Name Role Phone Unavailable Primary Care Provider Unavailable Encounter Details Date Type Department Care Team Description 02/22/2009 Hospital Encounter HX NO MAPPING Rizwan Dean M.D. [address] [place], [place] [phone] (Wo rk) Social History [...] How often do you attend mandaen or caodaism More than 4 time s [...]
--- OUTSIDE RECORDS SUMMARY | 2022-07-08 09:00 | XMS_ITS | Encounter Summary ---
:1985 Author Organization [facility] Address [address] [place] [address] Care Team Providers Name Role Phone Unavailable Primary Care Provider Unavailable Encounter Details Date Type Department Care Team Description 10/03/2008 Hospital Encounter [facility] Provider, [facility] Social History Tobacco Use Types Packs/Day Years [...] How often do you attend hinduism or yarsanism More than 4 time s [...] Provider Ser - 10/03/2008 2:50 PM CST [id number] SUBJECTIVE: Carol Juarez is a 22 year [...] known and 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 Source: [facility] Document Id: [id number] documented in this encounter Plan of Treatment Scheduled Procedures Name Priority Associated Diagnoses Date/Time COLONOSCOPY Diarrhea documented as of this encounter Visit Diagnoses Not on filedocumented in this encounter
--- OUTSIDE RECORDS SUMMARY | 2022-07-08 09:00 | XMS_ITS | Encounter Summary ---
:1985 Author Organization [facility] Address [address] [place] [address] Care Team Providers Name Role Phone Unavailable Primary Care Provider Unavailable Encounter Details Date Type Department Care Team Description 10/30/[address] [facility] Casi Vo M.D. [address] [place], [place] [phone] (Wo rk) Social History [...] How often do you attend scientology or oriental orthodox More than 4 time [...] Grove M.D. - 10/30/2008 2:30 PM CDT [id number] Carol is a 22 year old here for her annual exam. 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 Clutch Specialist HX: no abnormal paps. Her menses are [...] GERD, not daily BREAST: Negative : Negative DISPATCHER RADIOACTIVE WASTE DISPOSAL: Negative CV: Negative PULMONARY: Negative MUSCULOSKELETAL: Negative PSYCH: Negative SOCIAL HISTORY: History Social History Marital Status: Single Spouse Name: N/A Number of Children: N/A Years of Education: 13 Occupational History [employer] Social History Main Topics Tobacco Use: Yes [...] scattered benign nevi ASSESSMENT AND PLAN: Annual Clutch Specialist exam. Declines Chl screen (monogamous) Health maintenance includes: pap smear done today and smoking cessation. Source: [facility] Document Id: [id number] documented in this encounter Miscellaneous Notes Miscellaneous - Conversion, Historical Provider Ser - 10/30/2008 2:30 PM CDT [id number] Carol Juarez [address] [place] [phone] November 01, 2008 Dear Craol Juarez, I am happy to inform you that your recent cervical cancer screening test (PAP smear) was normal. Preventative screening such as this helps insure your health for years to come. Congratulations for taking care of yourself! Please contact my office if you have any further questions. [phone]. Sincerely, Ann Grove M.D. OBSTETRICS/GYNECOLOGY [facility] Source: [facility] Document Id: [id number] documented in this encounter Plan of Treatment Scheduled Procedures Name Priority Associated Diagnoses Date/Time COLONOSCOPY Diarrhea documented as of this encounter Visit Diagnoses Not on filedocumented in this encounter
--- OUTSIDE RECORDS SUMMARY | 2022-07-08 09:00 | XMS_ITS | Encounter Summary ---
:1985 Author Organization [facility] Address [address] [place] [address] Care Team Providers Name Role Phone Unavailable Primary Care Provider Unavailable Encounter Details Date Type Department Care Team Description 01/20/2008 Hospital Encounter HX [facility] Adonis Weir M.D. [address] [place] [phone] (Wo rk) Social History Tobacco [...] How often do you attend baptism or moravian More than 4 time s [...] Hooks M.D. - 01/20/2008 10:45 AM CDT [id number] Carol is sent from Peds (there with [...] epigastric pain resolving Plan: Amylase, CBC [facility] RWHX[facility] Document Id: [id number] documented in this encounter Plan of Treatment Scheduled Procedures Name Priority Associated Diagnoses Date/Time COLONOSCOPY Diarrhea documented as of this encounter Visit Diagnoses Not on filedocumented in this encounter
--- OUTSIDE RECORDS SUMMARY | 2022-07-08 09:00 | XMS_ITS | Encounter Summary ---
:1985 Author Organization [facility] Address [address] [place] [address] Care Team Providers Name Role Phone Unavailable Primary Care Provider Unavailable Encounter Details Date Type Department Care Team Description 06/02/2010 Hospital Encounter [facility] Ysabel Reyes R.NBrittaney [address] [phone] Social History Tobacco Use Types [...] How often do you attend jewish or mormonism More than 4 time s [...] Reyes R.N. - 06/02/2010 12:00 AM CDT [id number] Situation/What is the patients concern/need: N/v diarrhea, [...] Request: Apt with provider for headache. Source: [facility] Document Id: [id number] Electronically signed by Conversion, [facility] Canine Service Instructor Trainer [id number] at 01/24/2017 12:32 PM CDT documented in this encounter Plan of Treatment Scheduled Procedures Name Priority Associated Diagnoses Date/Time COLONOSCOPY Diarrhea documented as of this encounter Visit Diagnoses Not on filedocumented in this encounter
--- OUTSIDE RECORDS SUMMARY | 2022-07-08 09:00 | XMS_ITS | Encounter Summary ---
:1985 Author Organization [facility] Address [address] [place] [address] Care Team Providers Name Role Phone Unavailable Primary Care Provider Unavailable Encounter Details Date Type Department Care Team Description 06/02/2010 Hospital En[facility] Yamel Koch M.D. [address] [place] [address] (Wo rk) Social History Tobacco [...] Giang M.D. - 06/02/2010 10:30 AM CDT [id number] Chief Complaint Patient presents with Headache episodes [...] nausea. Imitrex for headache, suspect migraine. Source: [facility] Document Id: [id number] Electronically signed by Conversion, [facility] Embossing Machine Operator Helper [id number] at 01/24/2017 12:32 PM CDT documented in this encounter Miscellaneous Notes Miscellaneous - Keith Giang M.D. - 06/02/2010 10:30 AM CDT [id number] [facility] [address] [facility], [address] 06/02/2010 Carol Juarez TO WHOM IT MAY CONCERN: Carol Juarez was seen on 06/02/2010. Please excuse her from 06/02/2010 until symptoms improve due to illness. Cordially, Keith Giang M.D. FAMILY [facility] Source: [facility] Document Id: [id number] Electronically signed by Conversion, [facility] Embossing Machine Operator Helper [id number] at 01/24/2017 12:32 PM CDT documented in this encounter Plan of Treatment Scheduled Procedures Name Priority Associated Diagnoses Date/Time COLONOSCOPY Diarrhea documented as of this encounter Visit Diagnoses Not on filedocumented in this encounter
--- OUTSIDE RECORDS SUMMARY | 2022-07-08 09:00 | XMS_ITS | Encounter Summary ---
:1985 Author Organization [facility] Address [address] [place] [address] Care Team Providers Name Role Phone Unavailable Primary Care Provider Unavailable Encounter Details Date Type Department Care Team Description 02/04/2010 Hospital Encounter HX NO MAPPING Venu Yousif M.D. [address] [place], [place] [phone] (Wo rk) Social History [...] How often do you attend methodist or jewish More than 4 time s [...]
--- OUTSIDE RECORDS SUMMARY | 2022-07-08 09:00 | XMS_ITS | Encounter Summary ---
:1985 Author Organization [facility] Address [address] [place] [address] Care Team Providers Name Role Phone Unavailable [...] How often do you attend buddhism or judaism More than 4 time s [...]
--- OUTSIDE RECORDS SUMMARY | 2022-07-08 09:00 | XMS_ITS | Encounter Summary ---
:1985 Author Organization [facility] Address [address] [place] [address] Care Team Providers Name Role Phone Unavailable Primary Care Provider Unavailable Encounter Details Date Type Department Care Team Description 02/06/2008 Hospital Encounter [facility] Marisol Galaviz, APR N, C.N.P. [address] [place], [place] [phone] (Wo rk) Social History [...] How often do you attend congregational or alevism More than 4 time s [...] C.NLebron., R.N. - 02/06/2008 1:00 PM CDT [id number] Carol is here for a 6-week checkup. [...] and symptoms of infection were discussed. Source: [facility] RWHXTRANSXRTFSYS Document Id: [id number] Electronically signed by Conversion, [facility] Insole Taper [id number] at 01/25/2017 2:51 AM CDT documented in this encounter Miscellaneous Notes Miscellaneous - Marisol Irving C.N.P., R.N. - 02/06/2008 1:00 PM CDT [id number] Date: 02/06/2008 Name: Carol Juarez Birthdate: 1985 The patient was seen at: [facility] today Restrictions if any: Able to work unrestricted as of today. Marisol Irving RN, BOWLING ALLEY MANAGER OBSTETRICS/GYNECOLOGY [facility] Source: [facility] Document Id: [id number] Electronically signed by Conversion, [facility] Insole Taper [id number] at 01/25/2017 2:51 AM CDT documented in this encounter Plan of Treatment Scheduled Procedures Name Priority Associated Diagnoses Date/Time COLONOSCOPY Diarrhea documented as of this encounter Visit Diagnoses Not on filedocumented in this encounter
--- OUTSIDE RECORDS SUMMARY | 2022-07-08 09:00 | XMS_ITS | Encounter Summary ---
:1985 Author Organization [facility] Address [address] [place] [address] Care Team Providers Name Role Phone Unavailable [...] How often do you attend jain or confucianist More than 4 time s [...]
--- OUTSIDE RECORDS SUMMARY | 2022-07-08 09:00 | XMS_ITS | Encounter Summary ---
:1985 Author Organization [facility] Address [address] [place] [address] Care Team Providers Name Role Phone Unavailable Primary Care Provider Unavailable Encounter Details Date Type Department Care Team Description 12/29/2007 Hospital Encounter [facility] Casi Vo M.D. [address] [place], [place] [phone] (Wo rk) Social History [...] How often do you attend lutheran or latter day More than 4 time [...] Grove M.D. - 12/29/2007 12:00 AM CDT [id number] [facility] [address] [facility], [address] Name: Carol Juarez Birthdate: 1985 [facility] Admission Date: 12/27/2007 Allergy: No [...] minutes. Dr. Ann Grove MD 12/29/2007 Source: [facility] RWHXTRANSXRTFSYS Document Id: [id number] Electronically signed by Conversion, [facility] Claims Adjuster Supervisor [id number] at 01/25/2017 4:45 AM CDT Miscellaneous - Conversion, Historical Provider Ser - 12/29/2007 12:00 AM CDT [id number] [address], [address] Name: Carol Juarez Birthdate: 1985 SSN: [id number] [facility] Allergy: No known allergies Discharge Date: 12/29/2007 [...] documentation info: (time, how & by). Source: [facility] RWMCHXTRANSXRTFSYS Document Id: [id number] documented in this encounter Plan of Treatment Scheduled Procedures Name Priority Associated Diagnoses Date/Time COLONOSCOPY Diarrhea documented as of this encounter Visit Diagnoses Not on filedocumented in this encounter
--- OUTSIDE RECORDS SUMMARY | 2022-07-08 09:00 | XMS_ITS | Encounter Summary ---
:1985 Author Organization [facility] Address [address] [place] [address] Care Team Providers Name Role Phone Unavailable [...] How often do you attend uatsdin or catholic More than 4 time s [...] Historical Provider Ser - 08/23/2008 12:00 AM SPEECH WRITER [id number] 07/02/2009 - Date of R/C request: 06-12-09 Records sent to: Care Delivery Management [facility] Bambi Oh RN - [address] [address] [place] [address] [facility] Description of Disclosure: 12-27-07 to 12-29-07. 12-30-07 to 12-30-07, 01-02-08 to 01-06-08 Purpose of Disclosure: insurance for payment audit Authorization: NO [facility]: [facility] Document Id: [id number] documented in this encounter Plan of Treatment Scheduled Procedures Name Priority Associated Diagnoses Date/Time COLONOSCOPY Diarrhea documented as of this encounter Visit Diagnoses Not on filedocumented in this encounter
--- OUTSIDE RECORDS SUMMARY | 2022-07-08 09:00 | XMS_ITS | Encounter Summary ---
:1985 Author Organization [facility] Address [address] [place] [address] Care Team Providers Name Role Phone Unavailable Primary Care Provider Unavailable Encounter Details Date Type Department Care Team Description 08/06/2009 Hospital Encounter [facility] IN[facility]OBS[facility] Shari Diaz M.D. [address] [place], [place] [address] (Wo rk) Social History [...] How often do you attend yazidi or hoahaoism More than 4 time s [...]
--- OUTSIDE RECORDS SUMMARY | 2022-07-08 09:00 | XMS_ITS | Encounter Summary ---
:1985 Author Organization [facility] Address [address] [place] [address] Care Team Providers Name Role Phone Unavailable Primary Care Provider Unavailable Encounter Details Date Type Department Care Team Description 02/17/2010 Hospital Encounter HX NO MAPPING Berny Garcia M.D. [address] [place], [place] [phone] (Wo rk) Social History [...] How often do you attend protestant or hoahaoism More than 4 time s [...]
--- OUTSIDE RECORDS SUMMARY | 2022-07-08 09:00 | XMS_ITS | Encounter Summary ---
:1985 Author Organization [facility] Address [address] [place] [address] Care Team Providers Name Role Phone Unavailable Primary Care Provider Unavailable Encounter Details Date Type Department Care Team Description 05/19/2009 Hospital Encounter [facility] INPT/OBSRV Chon Babin M.D. [address] [place], [place] [phone] (Wo rk) Social History Tobacco Use Types [...] How often do you attend religious or mormon More than 4 time s [...]
--- OUTSIDE RECORDS SUMMARY | 2022-07-08 09:00 | XMS_ITS | Encounter Summary ---
:1985 Author Organization [facility] Address [address] [place] [address] Care Team Providers Name Role Phone Unavailable Primary Care Provider Unavailable Encounter Details Date Type Department Care Team Description 02/04/2010 Hospital Encounter HX NO MAPPING Venu Yousif M.D. [address] [place], [place] [phone] (Wo rk) Social History [...] How often do you attend pentecostalism or roman catholic More than 4 time [...]
--- OUTSIDE RECORDS SUMMARY | 2022-07-08 09:00 | XMS_ITS | Encounter Summary ---
:1985 Author Organization [facility] Address [address] [place] [address] Care Team Providers Name Role Phone Unavailable Primary Care Provider Unavailable Encounter Details Date Type Department Care Team Description 01/09/2009 Hospital Encounter [facility] Yamel Koch M.D. [address] [place] [address] (Wo rk) Social History Tobacco [...] How often do you attend sabianist or yarsani More than 4 time s [...] Yousif M.D. - 01/09/2009 3:00 PM CDT [id number] Comment: Automotive Teacher Chief Complaint Patient presents with Knee Pain [...] orKeflex is resistant to this. PCN/BTM/dac Source: [facility] RWHXTRANSXRTFSYS Document Id: [id number] Electronically signed by Conversion, [facility] Automotive Teacher [id number] at 01/24/2017 3:54 PM CDT documented in this encounter Plan of Treatment Scheduled Procedures Name Priority Associated Diagnoses Date/Time COLONOSCOPY Diarrhea documented as of this encounter Visit Diagnoses Not on filedocumented in this encounter
--- OUTSIDE RECORDS SUMMARY | 2022-07-08 09:00 | XMS_ITS | Encounter Summary ---
:1985 Author Organization [facility] Address [address] [place] [address] Care Team Providers Name Role Phone Unavailable Primary Care Provider Unavailable Encounter Details Date Type Department Care Team Description 03/24/2010 Hospital Encounter HX [facility] Yamel Koch M.D. [address] [place] [address] (Wo rk) Social History Tobacco [...] How often do you attend hindu or samaritan More than 4 time s [...] Giang M.D. - 03/24/2010 11:00 AM CDT [id number] Chief Complaint: Chief Complaint Patient presents with [...] or return if worsening or spreading. Source: [facility] RWMCHXTRANSXRTFSYS Document Id: [id number] Electronically signed by Conversion, [facility] Software Test Technician [id number] at 01/24/2017 2:27 PM CDT documented in this encounter Miscellaneous Notes Miscellaneous - Venu Giang M.D. - 03/24/2010 11:00 AM CDT [id number] [facility] [address] [facility], [address] 03/24/2010 Carol Juarez TO WHOM IT MAY CONCERN: Carol Juarez was seen on 03/24/2010. Please excuse her 03/24/2010 due to a medical condition. She may return 03/25/2010 without restrictions. Cordially, Venu Giang M.D. [facility] Source: [facility] RWHXTRANSXRTFSYS Document Id: [id number] Electronically signed by Conversion, [facility] Software Test Technician [id number] at 01/24/2017 2:27 PM CDT documented in this encounter Plan of Treatment Scheduled Procedures Name Priority Associated Diagnoses Date/Time COLONOSCOPY Diarrhea documented as of this encounter Visit Diagnoses Not on filedocumented in this encounter
--- OUTSIDE RECORDS SUMMARY | 2022-07-08 09:00 | XMS_ITS | Encounter Summary ---
:1985 Author Organization [facility] Address [address] [place] [address] Care Team Providers Name Role Phone Unavailable [...] How often do you attend buddhism or anabaptism More than 4 time s [...] Kinney M.D. - 01/02/2008 10:25 AM CDT [id number] [facility] [address] [facility], [address] Name: Carol Juarez Birthdate: 1985 Hospital Medical [...] [address] Mariaelena Kinney 01/06/2008 Source: [facility] RWMCHXTRANSXRTFSYS Document Id: [id number] Electronically signed by [facility], [facility] Braided Rug Maker [id number] at 01/25/2017 4:45 AM CDT Miscellaneous - Conversion, Historical Provider Ser - 01/02/2008 10:25 AM CDT [id number] [address] [place] [address] Name: Carol Juarez Birthdate: 1985 SSN: [id number] [facility] Allergy: No known allergies Discharge Date: 01/06/2008 Obstetrical Discharge Instructions Information given to patient: [facility] Immunization - Yes Notice of Phone Call [...] documentation info: (time, how & by). Source: [facility] RWHXTRANSXRTFSYS Document Id: [id number] documented in this encounter Plan of Treatment Scheduled Procedures Name Priority Associated Diagnoses Date/Time COLONOSCOPY Diarrhea documented as of this encounter Visit Diagnoses Not on filedocumented in this encounter
--- OUTSIDE RECORDS SUMMARY | 2022-07-08 09:00 | XMS_ITS | Encounter Summary ---
:1985 Author Organization [facility] Address [address] [place] [address] Care Team Providers Name Role Phone Unavailable Primary Care Provider Unavailable Encounter Details Date Type Department Care Team Description 02/04/2010 Hospital Encounter [facility] XRAY Provider, Histori huma Social History [...] How often do you attend pentecostal or zoroastrianism More than 4 time s [...] Yousif M.D. - 02/04/2010 11:00 AM CDT [id number] Quick Note: Nursing: please call patient to inform her the wet prep and ultrasound were both normal. Thanks. Source: [facility] RWMCHXTRANSXSYS Document Id: [id number] Electronically signed by Conversion, [facility] Patient Financial Services Coordinator [id number] at 01/24/2017 11:08 AM CDT documented in this encounter Plan of Treatment Scheduled Procedures Name Priority Associated Diagnoses Date/Time COLONOSCOPY Diarrhea documented as of this encounter Visit Diagnoses Not on filedocumented in this encounter
--- OUTSIDE RECORDS SUMMARY | 2022-07-08 09:00 | XMS_ITS | Encounter Summary ---
:1985 Author Organization [facility] Address [address] [place] [address] Care Team Providers Name Role Phone Unavailable [...] How often do you attend zoroastrianism or anabaptist More than 4 time s [...]
--- OUTSIDE RECORDS SUMMARY | 2022-07-08 09:00 | XMS_ITS | Encounter Summary ---
:1985 Author Organization [facility] Address [address] [place] [address] Care Team Providers Name Role Phone Unavailable Primary Care Provider Unavailable Encounter Details Date Type Department Care Team Description 06/04/2008 Hospital Encounter [facility]X [facility] IN[facility]OBSRV Neema Nieves M.D. Social History Tobacco [...] How often do you attend scientologist or anabaptism More than 4 time s [...]
--- OUTSIDE RECORDS SUMMARY | 2022-07-08 09:01 | XMS_ITS | Encounter Summary ---
:1985 Author Organization [facility] Address [address] [place] [address] Care Team Providers Name Role Phone Unavailable Primary Care Provider Unavailable Encounter Details Date Type Department Care Team Description 12/02/2007 Hospital Encounter [facility] Casi Vo M.D. [address] [place], [place] [address] (Wo rk) Social History [...] How often do you attend restorationism or protestant More than 4 time s [...] Grove M.D. - 12/02/2007 9:30 AM CDT [id number] Having some cramping. She's 36 weeks now so given 36 week instructions GBS/Hg done. KARY reviewed. BP good today. KG Source: [facility] Document Id: [id number] Electronically signed by [facility], [facility] Air Traffic Controller Center [id number] at 01/25/2017 2:07 AM CDT documented in this encounter Miscellaneous Notes Ann Barfield M.D. - 12/02/2007 9:30 AM CDT [id number] Carol Magalys [address] [address] December 05, 2007 Dear Carol: I am [...] or problems, please contact our office at [phone]. Sincerely, Ann Grove MD, PUMP STITCHER Department [facility] Source: [facility] Document Id: [id number] Electronically signed by Conversion, [facility] Air Traffic Controller Center [id number] at 01/25/2017 2:07 AM CDT Ann Barfield M.D. - 12/02/2007 9:30 AM CDT [id number] Carol Dowell [address] [address] December 05, 2007 Dear Carol: I am [...] or problems, please contact our office at [phone]. Sincerely, Ann Grove MD, PUMP STITCHER Department [facility] Source: [facility] Document Id: [id number] Electronically signed by Conversion, [facility] Air Traffic Controller Center [id number] at 01/25/2017 2:07 AM CDT documented in this encounter Plan of Treatment Scheduled Procedures Name Priority Associated Diagnoses Date/Time COLONOSCOPY Diarrhea documented as of this encounter Visit Diagnoses Not on filedocumented in this encounter
--- OUTSIDE RECORDS SUMMARY | 2022-07-08 09:01 | XMS_ITS | Encounter Summary ---
:1985 Author Organization [facility] Address [address] [place] [address] Care Team Providers Name Role Phone Unavailable Primary Care Provider Unavailable Encounter Details Date Type Department Care Team Description 11/21/[address] [facility] Yamel Koch M.D. [address] [place] [address] (Wo rk) Social History Tobacco [...] How often do you attend hoahaoism or scientologist More than 4 time s [...] Yousif M.D. 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 She is from [place]. She has not tried any medications for [...] delivers. PCN/btm/mp Source: [facility] RWMCHXTRANSXRTFSYS Document Id: [id number] documented in this encounter Plan of Treatment Scheduled Procedures Name Priority Associated Diagnoses Date/Time COLONOSCOPY Diarrhea documented as of this encounter Visit Diagnoses Not on filedocumented in this encounter
--- OUTSIDE RECORDS SUMMARY | 2022-07-08 09:01 | XMS_ITS | Encounter Summary ---
:1985 Author Organization [facility] Address [address] [place] [address] Care Team Providers Name Role Phone Unavailable Primary Care Provider Unavailable Encounter Details Date Type Department Care Team Description 06/01/2007 Hospital Encounter [facility] XRAY Provider, Histori huma Social History Tobacco [...] How often do you attend catholic or druze More than 4 time s [...]
--- OUTSIDE RECORDS SUMMARY | 2022-07-08 09:01 | XMS_ITS | Encounter Summary ---
:1985 Author Organization [facility] Address [address] [place] [address] Care Team Providers Name Role Phone Unavailable Primary Care Provider Unavailable Encounter Details Date Type Department Care Team Description 06/01/2007 Hospital Encounter HX NO MAPPING Marisol Irving APRN, C.N.P. [address] [place], [place] [address] (Wo rk) Social History [...] How often do you attend muslim or episcopalian More than 4 time s [...]
--- OUTSIDE RECORDS SUMMARY | 2022-07-08 09:01 | XMS_ITS | Encounter Summary ---
:1985 Author Organization [facility] Address [address] [place] [address] Care Team Providers Name Role Phone Unavailable [...] How often do you attend episcopalian or jew More than 4 time s [...]
--- OUTSIDE RECORDS SUMMARY | 2022-07-08 09:01 | XMS_ITS | Encounter Summary ---
:1985 Author Organization [facility] Address [address] [place] [address] Care Team Providers Name Role Phone Unavailable Primary Care Provider Unavailable Encounter Details Date Type Department Care Team Description 08/26/2007 Hospital Encounter [facility] XRAY Provider, Histori huma Social [...] How often do you attend temple or religion More than 4 time s [...] Historical Provider Ser - 08/26/2007 8:45 AM MACHINE PRECISION ENGRAVER [id number] Carol Juarez [address] [place] [phone] September 01, 2007 Dear Ms. Juarez: I [...] or problems, please contact our office at [phone]. Sincerely, Rylee Grijalva MD Dept. DEVELOPMENT REP [facility] Source: [facility] Document Id: [id number] documented in this encounter Plan of Treatment Scheduled Procedures Name Priority Associated Diagnoses Date/Time COLONOSCOPY Diarrhea documented as of this encounter Visit Diagnoses Not on filedocumented in this encounter
--- OUTSIDE RECORDS SUMMARY | 2022-07-08 09:01 | XMS_ITS | Encounter Summary ---
:1985 Author Organization [facility] Address [address] [place] [address] Care Team Providers Name Role Phone Unavailable Primary Care Provider Unavailable Encounter Details Date Type Department Care Team Description 2007 Hospital Encounter HX [facility] OBGYN Provider, Histor ical Social History Tobacco [...] How often do you attend druze or caodaism More than 4 time s [...] Provider Ser - 2007 9:15 AM CDT [id number] Repeat bp 144/86. No sx pree. Amnisure, nitrazine negative. Will check PIH labs and obs on LD. Source: [facility] Document Id: [id number] documented in this encounter Miscellaneous Notes Miscellaneous - Conversion, Historical Provider Ser - 2007 9:15 AM CDT [id number] 2007 Carol Juarez [id number] OB Admit History & Physical OB ADMIT [...] Years of Education: 13 Occupational History [employer] Social History Main Topics Tobacco Use: [...] Negative GI: Negative BREAST: Negative : Negative SURVEILLANCE SYSTEM MONITOR: Negative CV: Negative PULMONARY: Negative MUSCULOSKELETAL: Negative [...] labs. Rylee Grijalva MD MD Dept of PAINTER ORDNANCE Source: [facility] Document Id: [id number] documented in this encounter Plan of Treatment Scheduled Procedures Name Priority Associated Diagnoses Date/Time COLONOSCOPY Diarrhea documented as of this encounter Visit Diagnoses Not on filedocumented in this encounter
--- OUTSIDE RECORDS SUMMARY | 2022-07-08 09:01 | XMS_ITS | Encounter Summary ---
:1985 Author Organization [facility] Address [address] [place] [address] Care Team Providers Name Role Phone Unavailable Primary Care Provider Unavailable Encounter Details Date Type Department Care Team Description 12/14/2007 Hospital Encounter [facility]X [facility] OBGYN Provider, Histor ical Social History [...] How often do you attend worship or evangelical More than 4 time s [...] Provider Ser - 12/14/2007 9:45 AM CDT [id number] No complaints, exam normal KRN No regular contractions KRN Source: [facility] Document Id: [id number] documented in this encounter Plan of Treatment Scheduled Procedures Name Priority Associated Diagnoses Date/Time COLONOSCOPY Diarrhea documented as of this encounter Visit Diagnoses Not on filedocumented in this encounter
--- OUTSIDE RECORDS SUMMARY | 2022-07-08 09:01 | XMS_ITS | Encounter Summary ---
:1985 Author Organization [facility] Address [address] [place] [address] Care Team Providers Name Role Phone Unavailable Primary Care Provider Unavailable Encounter Details Date Type Department Care Team Description 12/07/2007 Hospital Encounter [facility] Marisol Galaviz, APR N, C.N.P. [address] [place], [place] [address] (Wo rk) Social History [...] How often do you attend sabianism or baptism More than 4 time s [...] C.NBrittaneyP., R.N. - 12/07/2007 10:30 AM CDT [id number] Carol is here at Gestational Age: 37w. [...] Enc. to call with any concerns. Source: [facility] Document Id: [id number] Marisol Irving C.N.P., R.N. - 12/07/2007 10:30 AM CDT [id number] Gestational Age: 37w GBS and HGB done today. plan and hospital arrival information given. C/O low back, leg and pelvic pain all the time. Hurts to stand more than 5 min at a time. BR Will limit work to 4 hours per day d/t increased edema. Warning signs discussed. FKC also discussed.ZENON Source: [facility] Document Id: [id number] documented in this encounter Miscellaneous Notes Miscellaneous - Marisol Irving C.N.P., R.N. - 12/07/2007 10:30 AM CDT [id number] Date: 12/07/2007 Name: Carol Juarez Birthdate: 1985 The patient was seen at: [facility] today Restrictions if any: Please limit work to 4 hours per day. Marisol Irving RN, PULP SCREEN OPERATOR OBSTETRICS/GYNECOLOGY [facility] Source: [facility] RWHXTRANSXRTFSYS Document Id: [id number] documented in this encounter Plan of Treatment Scheduled Procedures Name Priority Associated Diagnoses Date/Time COLONOSCOPY Diarrhea documented as of this encounter Visit Diagnoses Not on filedocumented in this encounter
--- OUTSIDE RECORDS SUMMARY | 2022-07-08 09:01 | XMS_ITS | Encounter Summary ---
:1985 Author Organization [facility] Address [address] [place] [address] Care Team Providers Name Role Phone Unavailable [...] often do you attend latter day or adventist More than 4 time s [...] Provider Ser - 2007 10:20 AM CDT [id number] [facility] Document Id: [id number] Miscellaneous - Conversion, Historical Provider Ser - 2007 10:20 AM CDT [id number] [facility] [address] [facility], [address] Name: Carol Juarez Birthdate: 1985 SSN: [id number] [facility] Allergy: No known allergies Discharge Date: 2007 [...] as above Diet: regular Appointment(s): To call [phone] by 5 pm to verify that you [...] documentation info: (time, how & by). Source: [facility] RWHXTRANSXRTFSYS Document Id: [id number] Miscellaneous - Conversion, Historical Provider Ser - 2007 10:20 AM CDT [id number] [address] [place] [address] Name: Carol Juarez Birthdate: 1985 SSN: [id number] [facility] Allergy: No known allergies Discharge Date: 2007 Obstetrical Discharge Instructions Information given to patient: [facility] Immunization - {YES-NO Default Yes:4444::Yes} Notice of Phone Call / Classes - {YES-NO Default Yes:4444::Yes} Parenting Newsletter - {YES-NO Default Yes:4444::Yes} Public Health Referral - {YES-NO Default Yes:4444::Yes} Social Work Services Referral - {YES-NO Default Yes:4444::Yes} -Information for Medical Records - {YES-NO Default Yes:4444::Yes} Discharged to: Home. Activities: {ACTIVITY HOSPITAL:860657::-Up as tolerated} Medications: {:PLEASE INCLUDE THE TIME [...] documented {:time}. Nursing Instructions: { OB HOSP [place] NURSE INSTRUCT:808412::Nothing per Vagina for 6 weeks, As instructed by your provider.} Diet: { OB [facility] DIET:058286} Appointment(s): Mother's Appointment: To see . Baby's [...] documentation info: (time, how & by). Source: [facility] RWHXTRANSXRTFSYS Document Id: [id number] documented in this encounter Plan of Treatment Scheduled Procedures Name Priority Associated Diagnoses Date/Time COLONOSCOPY Diarrhea documented as of this encounter Visit Diagnoses Not on filedocumented in this encounter
--- OUTSIDE RECORDS SUMMARY | 2022-07-08 09:01 | XMS_ITS | Encounter Summary ---
:1985 Author Organization [facility] Address [address] [place] [address] Care Team Providers Name Role Phone Unavailable Primary Care Provider Unavailable Encounter Details Date Type Department Care Team Description 06/27/2007 Hospital Encounter [facility] Marisol Galaviz, APR N, C.N.P. [address] [place], [place] [phone] (Wo rk) Social History [...] How often do you attend pentecostalism or moravian More than 4 time s [...] C.NLebron., R.N. - 06/27/2007 11:00 AM CST [id number] Addended by: MARISOL IRVING on: 06/29/2007 12:10:37 PM Modules accepted: Orders [facility] Document Id: [id number] Electronically signed by Conversion, [facility] Loss Control Consultant [id number] at 01/25/2017 10:01 AM CDT Conversion, Historical Provider Ser - 06/27/2007 11:00 AM CST [id number] Addended by: LORENZO ARIAS on: 06/29/2007 1:34:55 PM Modules accepted: Orders [facility]: [facility] Document Id: [id number] Conversion, Historical Provider Ser - 06/27/2007 11:00 AM CST [id number] OK for message at home Genetic Screening: [...] to early sono done. She lives in [place] with mother. Carol has been feeling OK. She works at [employer]. Family is close and supportive. [facility]. Assessment: vitamins: Is taking them. Diet: Regular diet, no history of an eating disorder. Adequate calcium intake discussed. She has been referred to meet with the clinical nurse educator. Transportation issues: none Safe relationship: She feels safe in current relationship. She has no history of abusive relationhips. Financial Concerns: doing OK Insurance: applying for [place] Social Service/Public Health: WIC She is a [...] call with any questions. Referrals: None Source: [facility] Document Id: [id number] Marisol Irving C.NBrittaneyP., R.N. - 06/27/2007 11:00 AM CST [id number] Body mass index is 40.11 kg/(m`2). Obesity protocol. 1 GTT with next visit. Early sono done for dates. Applying for MA, WIC, GCPH consult ordered. Quitting smoking. ZENON Source: [facility] Document Id: [id number] Electronically signed by Conversion, [facility] Loss Control Consultant [id number] at 01/25/2017 10:01 AM CDT documented in this encounter Miscellaneous Notes Miscellaneous - Conversion, Historical Provider Ser - 06/27/2007 11:00 AM GRINDER OPERATOR EXTERNAL TOOL [id number] Carol Juarez [address] [place] [phone] June 29, 2007 Dear Carol Juarez, I am happy to inform you that your recent cervical cancer screening test (PAP smear) was normal. Preventative screening such as this helps insure your health for years to come. Congratulations for taking care of yourself! Please contact my office if you have any further questions. [phone]. Sincerely, Marisol Irving RN, PROFESSIONAL PROGRAMMER ANALYST OBSTETRICS/GYNECOLOGY [facility] Source: [facility] Document Id: [id number] Miscellaneous - Marisol Irving C.N.P., R.N. - 06/27/2007 11:00 AM CST [id number] Carol Juarez [address] [place] [phone] June 29, 2007 MR#: [id number] Dear Carol, I am happy to inform [...] free to give me a call at [phone]. Sincerely, Marisol Irving RN,PROFESSIONAL PROGRAMMER ANALYST store administrative assistant [facility] Source: [facility] Document Id: [id number] Electronically signed by Conversion, [facility] Loss Control Consultant [id number] at 01/25/2017 10:01 AM CDT documented in this encounter Plan of Treatment Scheduled Procedures Name Priority Associated Diagnoses Date/Time COLONOSCOPY Diarrhea documented as of this encounter Visit Diagnoses Not on filedocumented in this encounter
--- OUTSIDE RECORDS SUMMARY | 2022-07-08 09:01 | XMS_ITS | Encounter Summary ---
:[address] [facility] Address [address] [place] [address] Care Team Providers Name Role Phone Unavailable [...] How often do you attend sikh or protestant More than 4 time s [...] Provider Ser - 12/27/2007 7:10 PM CDT [id number] [facility] Document Id: [id number] documented in this encounter Plan of Treatment Scheduled Procedures Name Priority Associated Diagnoses Date/Time COLONOSCOPY Diarrhea documented as of this encounter Visit Diagnoses Not on filedocumented in this encounter
--- OUTSIDE RECORDS SUMMARY | 2022-07-08 09:01 | XMS_ITS | Encounter Summary ---
:1985 Author Organization [facility] Address [address] [place] [address] Care Team Providers Name Role Phone Unavailable Primary Care Provider Unavailable Encounter Details Date Type Department Care Team Description 09/28/2007 Hospital Encounter HX [facility] Manuel Hernandez P.ABrittaney-CBrittaney [address] [place] [address] (Wo rk) Social History Tobacco [...] How often do you attend mosque or sikh More than 4 time s [...] Karey Paula - 09/28/2007 8:30 AM CST [id number] SUBJECTIVE: Caorl is a 21 year old female who [...] week or sooner if symptoms wrosen Source: [facility] RWHXTRANSXRTFSYS Document Id: [id number] documented in this encounter Miscellaneous Notes Miscellaneous - Karey Paula - 09/28/2007 8:30 AM CST [id number] Carol Juarez [address] [place] [phone] [id number] September 28, 2007 To whom it may concern Please excuse Carol Juarez from work for illness on 09/28/2007. She may return to work on 09/29/2007 without limitation. If you have any other questions or concerns please feel free to contact me at anytime. Sincerely, Karey Paula PA-C Department of Family Practice [facility] Source: [facility] Document Id: [id number] documented in this encounter Plan of Treatment Scheduled Procedures Name Priority Associated Diagnoses Date/Time COLONOSCOPY Diarrhea documented as of this encounter Visit Diagnoses Not on filedocumented in this encounter
--- OUTSIDE RECORDS SUMMARY | 2022-07-08 09:01 | XMS_ITS | Encounter Summary ---
:1985 Author Organization [facility] Address [address] [place] [address] Care Team Providers Name Role Phone Unavailable Primary Care Provider Unavailable Encounter Details Date Type Department Care Team Description 11/21/2007 Hospital [facility] Casi Vo M.D. [address] [place], [place] [phone] (Wo rk) Social History [...] often do you attend jehovah's witness or baptist More than 4 time s [...] Grove M.D. - 11/21/2007 2:00 PM CDT [id number] Gestational Age: 34w 5d C/O increased edema in feet and hands. BR Repeat BP 130/78 sitting. Reviewed S/S of PIH, will limit work to 8 hrs a day (now working 10hr) follow up in 4-5 days. KG Source: [facility] Document Id: [id number] Electronically signed by Conversion, [facility] [employer] Mig Welder [id number] at 01/25/2017 1:26 AM CDT documented in this encounter Miscellaneous Notes Miscellaneous - Ann Grove M.D. - 11/21/2007 2:00 PM CDT [id number] Return to Work Release Date: 11/21/2007 Name: Carol Juarez Birthdate: 1985 The patient was seen at: [facility] today Restrictions if any: May work no more than 8 hrs due to complications. Ann Grove M.D. OBSTETRICS/GYNECOLOGY [facility] Source: [facility] Document Id: [id number] Electronically signed by Conversion, [facility] [employer] Mig Welder [id number] at 01/25/2017 1:26 AM CDT documented in this encounter Plan of Treatment Scheduled Procedures Name Priority Associated Diagnoses Date/Time COLONOSCOPY Diarrhea documented as of this encounter Visit Diagnoses Not on filedocumented in this encounter
--- OUTSIDE RECORDS SUMMARY | 2022-07-08 09:01 | XMS_ITS | Encounter Summary ---
:1985 Author Organization [facility] Address [address] [place] [address] Care Team Providers Name Role Phone Unavailable Primary Care Provider Unavailable Encounter Details Date Type Department Care Team Description 11/25/2007 Hospital Encounter HX [facility] OBG[facility] Provider, Histor ical Social History [...] How often do you attend mormon or zoroastrian More than 4 time s [...] Provider Ser - 11/25/2007 2:00 PM CDT [id number] Gestational Age: 35w 2d, recheck b/p, has a lot of pelvic pressure, has some leakage after she voids,JZ No sx pree. Repeat bp 122/80. Nitrazine negative. No ctx/vb. Decreased movement. BPP performed in clinic ANA LUISA 16cm. +2 breathing, +2 flexion/extension, +2 gross movement, +2 fluid = 88 Source: [facility] RWHXTRANSXRTFSYS Document Id: [id number] documented in this encounter Plan of Treatment Scheduled Procedures Name Priority Associated Diagnoses Date/Time COLONOSCOPY Diarrhea documented as of this encounter Visit Diagnoses Not on filedocumented in this encounter
--- OUTSIDE RECORDS SUMMARY | 2022-07-08 09:01 | XMS_ITS | Encounter Summary ---
:1985 Author Organization [facility] Address [address] [place] [address] Care Team Providers Name Role Phone Unavailable Primary Care Provider Unavailable Encounter Details Date Type Department Care Team Description 10/24/2007 Hospital Encounter HX [facility] Mariaelena Mcintosh M.D. Social History Tobacco [...] How often do you attend mandaen or shinto More than 4 time s [...] Kinney M.D. - 10/24/2007 11:00 AM CST [id number] Has some mild CHOWDHURY, migranes Used tylenol and Caffeine. Good movement. Exam normal. Skin lesion onarms - will get derm consult. KD Source: [facility] Document Id: [id number] Electronically signed by Conversion, [facility] Central Communications Specialist [id number] at 01/25/2017 1:26 AM CDT documented in this encounter Plan of Treatment Scheduled Procedures Name Priority Associated Diagnoses Date/Time COLONOSCOPY Diarrhea documented as of this encounter Visit Diagnoses Not on filedocumented in this encounter
--- OUTSIDE RECORDS SUMMARY | 2022-07-08 09:01 | XMS_ITS | Encounter Summary ---
:1985 Author Organization [facility] Address [address] [place] [address] Care Team Providers Name Role Phone Unavailable Primary Care Provider Unavailable Encounter Details Date Type Department Care Team Description 10/10/2007 Hospital Encounter [facility] Adonis Weir M.D. [address] [place] [phone] (Wo rk) Social History Tobacco [...] How often do you attend congregational or jew More than 4 time s [...] Provider Ser - 10/10/2007 11:00 AM CST [id number] Gestational Age: 28w 5d Rhogam Injection given today. BR No concerns wds Source: [facility] RWMCHXTRANSXRTFSYS Document Id: [id number] documented in this encounter Plan of Treatment Scheduled Procedures Name Priority Associated Diagnoses Date/Time COLONOSCOPY Diarrhea documented as of this encounter Visit Diagnoses Not on filedocumented in this encounter
--- OUTSIDE RECORDS SUMMARY | 2022-07-08 09:01 | XMS_ITS | Encounter Summary ---
:1985 Author Organization [facility] Address [address] [place] [address] Care Team Providers Name Role Phone Unavailable Primary Care Provider Unavailable Encounter Details Date Type Department Care Team Description 05/24/2007 Hospital Encounter HX [facility] Provider, Histor ical Social History [...] How often do you attend yazdanism or buddhism More than 4 time s [...] Provider Ser - 05/24/2007 12:00 AM CDT [id number] LMP: 03/12/07- Uncertain Dates NGA: 12/18/06 Triage/Phone [...] as soon as can be scheduled. Source: [facility] RWHXTRANSXRTFSYS Document Id: [id number] documented in this encounter Plan of Treatment Scheduled Procedures Name Priority Associated Diagnoses Date/Time COLONOSCOPY Diarrhea documented as of this encounter Visit Diagnoses Not on filedocumented in this encounter
--- OUTSIDE RECORDS SUMMARY | 2022-07-08 09:01 | XMS_ITS | Encounter Summary ---
:1985 Author Organization [facility] Address [address] [place] [address] Care Team Providers Name Role Phone Unavailable Primary Care Provider Unavailable Encounter Details Date Type Department Care Team Description 08/18/2007 Hospital Encounter HX [facility] Casi Vo M.D. [address] [place], [place] [phone] (Wo rk) Social History [...] How often do you attend faith or buddhism More than 4 time s [...] Grove M.D. - 08/18/2007 9:15 AM CST [id number] Had presyncopal episode at work this am, better now GERD-can try zantac and maalox prn. KG Source[facility] RWHXTRANSXRTFSYS Document Id: [id number] Electronically signed by Conversion, [facility] Model Builder [id number] at 01/25/2017 5:21 AM CDT documented in this encounter Plan of Treatment Scheduled Procedures Name Priority Associated Diagnoses Date/Time COLONOSCOPY Diarrhea documented as of this encounter Visit Diagnoses Not on filedocumented in this encounter
--- OUTSIDE RECORDS SUMMARY | 2022-07-08 09:01 | XMS_ITS | Encounter Summary ---
:1985 Author Organization [facility] Address [address] [place] [address] Care Team Providers Name Role Phone Unavailable Primary Care Provider Unavailable Encounter Details Date Type Department Care Team Description 09/26/[address] [facility] Marisol Galaviz, APR N, C.N.P. [address] [place], [place] [phone] (Wo rk) Social History [...] How often do you attend restorationist or mormon More than 4 time s [...] Provider Ser - 09/26/2007 9:45 AM CST [id number] Carol is here for her 26 week visit. She is Gestational Age: 26w 5d weeks today. 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 Carol understands the [...] none Next appointment: 2,4 weeks Source: [facility] Document Id: [id number] Marisol Irving C.N.P., R.N. - 09/26/2007 9:45 AM CST [id number] Gestational Age: 26w 5d 1 hr gtt, antibody screen and hgb done today. certificate form given. BR Doing well. Attending classes. ZENON Source: [facility] Document Id: [id number] Electronically signed by [facility], [facility] Almond Sorter [id number] at 01/25/2017 12:10 AM CDT documented in this encounter Miscellaneous Notes Miscellaneous - Marisol Irving C.N.P., R.N. - 09/26/2007 9:[id number] [facility] [address] [place] [address] September 27, 2007 Carol Juarez [address] [place] [phone] Dear Ms. Juarez: I am writing to [...] or problems, please contact our office at [phone]. Sincerely, Marisol Irving RN, POCKET AND PULLEY MACHINE OPERATOR [facility] Source: [facility] Document Id: [id number] documented in this encounter Plan of Treatment Scheduled Procedures Name Priority Associated Diagnoses Date/Time COLONOSCOPY Diarrhea documented as of this encounter Visit Diagnoses Not on filedocumented in this encounter
--- OUTSIDE RECORDS SUMMARY | 2022-07-08 09:01 | XMS_ITS | Encounter Summary ---
:1985 Author Organization [facility] Address [address] [place] [address] Care Team Providers Name Role Phone Unavailable Primary Care Provider Unavailable Encounter Details Date Type Department Care Team Description 07/27/2007 Hospital Encounter HX [facility] OBGYN Provider, Histor ical Social History Tobacco [...] How often do you attend restorationism or buddhist More than 4 time s [...] Monsivais L.PBrittaneyNBrittaney - 07/27/2007 8:45 AM CST [id number] Addended by: ALISON GONZALEZ on: 07/27/2007 9:07:44 AM Modules accepted: Orders Source: [facility] Document Id: [id number] Electronically signed by Conversion, [facility] Pay Per Click Strategist [id number] at 01/25/2017 5:21 AM CDT Conversion, Historical Provider Ser - 07/27/2007 8:45 AM CST [id number] Gestational Age: 18w, feels ok, 20 week waiver signed,declines to have quad test, JZ Doing well, no concerns. Early 1hr glu today. U/s ordered. Source: [facility] Document Id: [id number] documented in this encounter Miscellaneous Notes Miscellaneous - Marisol Irving, C.N.P., R.N. - 07/27/2007 8:45 AM CST [id number] [facility] [address] [place] [address] July 27, 2007 Carol Juarez [address] [place] [phone] Dear Ms. Juarez: I am writing to [...] or problems, please contact our office at [phone]. Sincerely, Marisol Irving RN, CHIEF OF SERVICE [facility] Source: [facility] Document Id: [id number] Electronically signed by Conversion, [facility] Pay Per Click Strategist [id number] at 01/25/2017 5:21 AM CDT documented in this encounter Plan of Treatment Scheduled Procedures Name Priority Associated Diagnoses Date/Time COLONOSCOPY Diarrhea documented as of this encounter Visit Diagnoses Not on filedocumented in this encounter
--- OUTSIDE RECORDS SUMMARY | 2022-07-08 09:01 | XMS_ITS | Encounter Summary ---
:1985 Author Organization [facility] Address [address] [place] [address] Care Team Providers Name Role Phone Unavailable Primary Care Provider Unavailable Encounter Details Date Type Department Care Team Description 11/07/2007 Hospital Encounter HX [facility] OBGYN Provider, Histor ical Social History [...] How often do you attend congregational or presybeterian More than 4 time s [...] Provider Ser - 11/07/2007 10:30 AM CDT [id number] C/o pressure.TM Patient reassured Would like to be seen by primary for rash. Has depigmented areas on foreqrms bilaterally. Not rpesent on remainder of body. Has had prior to , no other symptoms. KRN Source: [facility] Document Id: [id number] documented in this encounter Plan of Treatment Scheduled Procedures Name Priority Associated Diagnoses Date/Time COLONOSCOPY Diarrhea documented as of this encounter Visit Diagnoses Not on filedocumented in this encounter
--- OUTSIDE RECORDS SUMMARY | 2022-07-08 09:01 | XMS_ITS | Encounter Summary ---
:1985 Author Organization [facility] Address [address] [place] [address] Care Team Providers Name Role Phone Unavailable [...] How often do you attend anabaptist or jew More than 4 time s [...]
[2022-07-08 10:22] LABS: HCG Quantitative* 66.85 mIU/mL
== END 2022-07-08 15:42 | disposition home or self-care (01) ==
PROVIDERS: Visit Provider Obstetrics & Gynecology
DX: O02.1 Missed abortion (principal)
CPT/HCPCS: 84702

== ENCOUNTER 2022-07-17 15:41 | Outpatient (CLI) | payer OTHER, SELFPAY ==
--- OUTSIDE RECORDS SUMMARY | 2022-07-17 08:02 | XMS_ITS | Clinical Summary ---
:1985 Author Organization [facility] Address [address] [place] [address] Care Team Providers Name Role Phone Alberto Locke M.D. Primary Care Provider Source Comments Patient records contain information from all sites at [facility]. For routine questions regarding patient records, call [phone] during business hours, M-F 8:00 AM - 5:00 PM Central Time. Record requests for emergency care only can be directed to [phone] at any time.[facility] Allergies Active Allergy Reactions Severity Noted Date [...] Added automatically from request for guillermina arreola [id number] Body Mass Index 60.0 To 69.9 Adult [...] Added automatically from request for guillermina arreola [id number] Hemorrhage Gastrointestinal 11/13/2017 02/18/2018 Pain Right Upper Quadrant 11/11/2017 04/20/2019 Melena 11/11/2017 02/18/2018 Overview: Added automatically from request for guillermina arreola [id number] Hypovolemic Shock 11/11/2017 02/18/2018 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 (Primar y Dx) 05/02/2022 Emergency [...] How often do you attend sabianism or zoroastrianism More than 4 time s [...] 02/21/2022 12:21 AM CDT Plan of Treatment Health Maintenance Due Date Last Done Comments [...] history exists Medical Devices Implanted Type Area [place] Tower Loader Device Shelf Model / Identifier Expiration Serial / Date Lot Hardware E.G. Hardware Abdomen Pins/Screws/Ro e.g. ds pins/screws/ rods Description: Clamp for GI bleed Nexplanon-07/20/2018 Other/Legacy - See Arm 10/07/2020 / Implanted: 07/20/2018 by Leonora Reaves APRN, C.N.P. ( Quantity not on file) Implant Description / [id number] Procedures Procedure Name Priority Date/Time Associated Comments [...] Device are in the outpatients) results section. WA REMOVAL OF Routine 05/13/2022 1:15 Surveillance Results [...] Jeaneth Earl P.A.-C. IMG DIAGNOSTIC IMAGING PROCE [facility] US OB First Trimester and Transvaginal (05/13/2022 [...] Unknown, NGA: N/A INTRAUTERINE Pole: Not seen, [place]-Rump Length: N/A Gestational Sac: Normal Yolk Sac: [...] Unknown, NGA: N/A INTRAUTERINE Pole: Not seen, [place]-Rump Length: N/A Gestational Sac: Normal Yolk Sac: [...] Rusty Guevara M.D. IMG OB US PROCEDURES [place] REMOVAL OF INTRAUTERINE DEVICE (05/13/2022 1:15 PM [...] M.D. OB GYNE ORDERABLES Performing Organization Address City/[facility] Phon e Number MMODAL MMODAL NA (ABNORMAL) [...] - GENE RAL ORDERABLES Performing Organization Address [facility] Phon e Number [facility]- [address] [place] [address] [phone] [facility] [place] [place] [address] [address] (ABNORMAL) Urinalysis with Microscopic: (05/13/2022 12:30 [...] 8.0 05/13/2022 12:51 PM CDT [facility] Specific [place] >=1.030 1.001 - 1.035 05/13/2022 12:51 PM [...] Number [facility]- [address] [place], [place] [address] [place] [address] System in [place] [address] (ABNORMAL) hCG (Human Chorionic Gonadotropin), Quantitative, (05/13/2022 12:07 PM CDT) Analysis Performed At Patho logist Time Signature HCG, [address] (H) <5 IU/L 05/13/2022 R[facility] Quantitative, 1:11 PM CDT , P Specimen Anatomical Collection Method Collection Time Receive d Time (Source) Location / / Volume Laterality Blood (Blood, 05/13/2022 12:07 05/13/2022 Venous) PM CDT 12:21 PM CDT Rusty Guevara M.D. LAB BLOOD ADD-ON Performing Organization Address City/State/ZIP Code Phon e Number [facility]- [address] [place], [place] [address] [place] [address] System in [place] [address] from Last 3 Months Insurance Payer Benefit Plan Subscriber ID Effective Dates Phone Address Type / Group [facility] [id number] 2018-Tana [phone] [address] X [id number] PPO EMPLOYEE PLAN t [address] [id number] (Home) [place] [address] (Work) Advance Directives For more information, please contact: [phone] Latest Code Status on File Code Status [...] Due to: Not medically appropriate Care Teams Sectionizer Relationship Specialty Start Date End Date Alberto Locke M.D. PCP - General Family Medicine 04/27/19 [address] [place] [address]
--- OUTSIDE RECORDS SUMMARY | 2022-07-17 08:02 | XMS_ITS | Encounter Summary ---
:1985 Author Organization [facility] Address [address] [place] [address] Care Team Providers Name Role Phone Alberto Locke M.D. Primary Care Provider Encounter Details Date Type Department Care Team Description 06/09/2022 Clinical Support Department of [facility], in [address] [phone] Social History Tobacco Use Types Packs/Day [...] How often do you attend anglican or temple More than 4 time s [...] as of this encounter Plan of Treatment Not on filedocumented as of this encounter Visit Diagnoses Not on filedocumented in this encounter Additional Health Concerns Assessment Noted Time PHQ-9 Depression Total Score: 9 07/08/2020 3:59 PM STONE HAND documented as of this encounter Care Teams Manager Motor Relationship Specialty Start Date End Date Alberto Locke M.D. PCP - General Family Medicine 04/27/19 [address] [place] [address] documented as of this encounter
--- OUTSIDE RECORDS SUMMARY | 2022-07-17 08:03 | XMS_ITS | Encounter Summary ---
:1985 Author Organization [facility] Address [address] [place] [address] Care Team Providers Name Role Phone Alberto Locke M.D. Primary Care Provider Reason for Visit Reason Comments Follow-up Encounter Details Date Type Department Care Team Description 05/13/2022 Clinical Communication Department of Nich[facility] I[facility] Follow-up Obstetrics and A, R.N. Gynecology in [address] [address] [place], [place] [phone] [address] (Work) [phone] Social History Tobacco Use Types Packs/Day Years [...] How often do you attend anabaptism or episcopal More than 4 time s [...] to pay for the very basics like [employer] hat hard 07/09/2020 food, housing, medical care, [...] and informed of plan. Patient transferred to director life sciences to schedule. Warning signs for ectopic reviewed [...] documented in this encounter Plan of Treatment Not on filedocumented as of this encounter Results (ABNORMAL) Bacterial Culture, Aerobic + Susc, Urine (05/13/2022 12:30 PM CDT) [facility] gist Method Time Signature Urine Culture Mixed [...] Number [facility]- [address] [place] [phone] [facility] [place] [address] System [address] (ABNORMAL) hCG (Human Chorionic Gonadotropin), Quantitative, (05/13/2022 12:07 PM CDT) Analysis Performed At Patho logist Time Signature HCG, [address] (H) <5 IU/L 05/13/2022 [facility] Quantitative, 1:11 PM CDT , P Specimen Anatomical Collection Method Collection Time Receive d Time (Source) Location / / Volume Laterality Blood (Blood, 05/13/2022 12:07 05/13/2022 Venous) PM CDT 12:21 PM CDT Rusty Guevara M.D. LAB BLOOD ADD-ON Performing Organization Address City/[facility]/ZIP Code Phon e Number [facility]- [address] [facility] [place] [address] System in [place] Imer Motley documented in this encounter Visit Diagnoses Diagnosis Surveillance Intrauterine Device - Prima ry Frequency Urinary documented in this encounter Additional Health Concerns Assessment Noted Time PHQ-9 Depression Total Score: 9 07/08/2020 3:59 PM HOG HANDLER documented as of this encounter Care Teams Pari Mutuel Ticket Seller Relationship Specialty Start Date End Date Alberto Locke M.D. PCP - General Family Medicine 04/27/19 [address] [address] documented as of this encounter
--- OUTSIDE RECORDS SUMMARY | 2022-07-17 08:03 | XMS_ITS | Encounter Summary ---
:1985 Author Organization [facility] Address [address] [place] [address] Care Team Providers Name Role Phone Alberto Locke M.D. Primary Care Provider Encounter Details Date Type Department Care Team Description 02/25/2022 Orders Only [facility] Sa emma Lemos M.D. Screening Lipid [address] [place] [phone] (Wo rk) Social History Tobacco Use Types [...] How often do you attend hindu or anglican More than 4 time s [...] Routine Screening Lipid Expected: , Expires: 08/24/2022 documented as of this encounter Visit Diagnoses Diagnosis Screening Lipid documented in this encounter Additional Health Concerns Assessment Noted Time PHQ-9 Depression Total Score: 9 07/08/2020 3:59 PM SWEEP MOLDER documented as of this encounter Care Teams Basket Assembler Relationship Specialty Start Date End Date Alberto Locke M.D. PCP - General Family Medicine 04/27/19 [address] [place] [address] documented as of this encounter
--- OUTSIDE RECORDS SUMMARY | 2022-07-17 08:03 | XMS_ITS | Encounter Summary ---
:1985 Author Organization [facility] Address [address] [place] [address] Care Team Providers Name Role Phone Alberto Locke M.D. Primary Care Provider Encounter Details Date Type Department Care Team Description 01/16/2022 Admin Visit Department of [facility] Ian Hays[facility] [address] [place] [address] [address] [place] [phone] (Wo rk) Social History Tobacco Use Types [...] How often do you attend judaism or pentecostalism More than 4 time s [...] to pay for the very basics like I Do Now I Don't hat hard 07/09/2020 food, housing, medical care, [...] Depression Total Score: 9 07/08/2020 3:59 PM DYNAMICIST documented as of this encounter Care Teams Sales Stock Associate Relationship Specialty Start Date End Date Alberto Locke M.D. PCP - General Family Medicine 04/27/19 [address] [place] [phone] documented as of this encounter
--- OUTSIDE RECORDS SUMMARY | 2022-07-17 08:03 | XMS_ITS | Encounter Summary ---
:1985 Author Organization [facility] Address [address] [place] [address] Care Team Providers Name Role Phone Alberto Locke M.D. Primary Care Provider Reason for Referral Outpatient (Routine) - Closed Specialty Diagnoses / Procedures Referred By Contact Refer marko To Contact Diagnoses Edema Dyspnea On Exertion Shortness Of Breath Nichole Maria M.D. [facility] [place] [facility] Procedures DX Chest AP or PA and Lateral 2 Views [address] [place] [address] Referral ID Status Reason Start Date Expiration Date Visits Requ ested Visits Authorized [id number] Closed 11/04/2021 11/04/2022 1 1 Reason for Visit Outpatient (Routine) - Closed Specialty Diagnoses / Procedures Referred By Contact Refer marko To Contact Diagnoses Edema Dyspnea On Exertion Shortness Of Breath Nichole Maria M.D. [facility] [place] [facility] Procedures DX Chest AP or PA and Lateral 2 Views 061 [place] [address] Referral ID Status Reason Start Date Expiration Date Visits Requ ested Visits Authorized [id number] Closed 11/04/2021 11/04/2022 1 1 Encounter Details Date Type Department Care Team Description 11/04/2021 Hospital Encounter Department of Nichole Maria; Radiology in Marko Barrett M.D. Dyspnea On Exertion; [place] [address] Dennis[address] carlos Shortness Of Breath [address] [place] [phone] Social History Tobacco Use Types Packs/Day [...] How often do you attend alevism or latter-day More than 4 time s [...] Not on filedocumented as of this encounter Procedures Procedure Name [...] d isease. Nichole CH DIAGNOSTIC IMAGING PROCE DURES documented in this encounter Visit Diagnoses Diagnosis Edema Dyspnea On Exertion Shortness Of Breath documented in this encounter Additional Health Concerns Assessment Noted Time PHQ-9 Depression Total Score: 9 07/08/2020 3:59 PM TELEGRAPH OFFICE MANAGER documented as of this encounter Care Teams Shoveler Relationship Specialty Start Date End Date Alberto Locke M.D. PCP - General Family Medicine 04/27/19 [place] [phone] documented as of this encounter
--- OUTSIDE RECORDS SUMMARY | 2022-07-17 08:03 | XMS_ITS | Encounter Summary ---
:1985 Author Organization [facility] Address [address] [place] [address] Care Team Providers Name Role Phone Alberto Locke M.D. Primary Care Provider Encounter Details Date Type Department Care Team Description 05/13/2022 Orders Only Department of [place], Surveillance Obstetrics and Rusty Santiago M.D. Intrauterine Device Gynecology in [facility] [address] (Primary Dx) [place] [address] [address] [place] [address] Social History Tobacco Use Types [...] How often do you attend worship or caodaism More than 4 time s [...] filedocumented as of this encounter Visit Diagnoses Diagnosis Surveillance Intrauterine Device - Prima ry documented in this encounter Additional Health Concerns Assessment Noted Time PHQ-9 Depression Total Score: 9 07/08/2020 3:59 PM COMMERCIAL TRAILER TRUCK DRIVER documented as of this encounter Care Teams Exploration Manager Relationship Specialty Start Date End Date Alberto Locke M.D. PCP - General Family Medicine 04/27/19 [address] [place] [phone] documented as of this encounter
--- OUTSIDE RECORDS SUMMARY | 2022-07-17 08:03 | XMS_ITS | Encounter Summary ---
:1985 Author Organization [facility] Address [address] [place] [address] Care Team Providers Name Role Phone Alberto Locke M.D. Primary Care Provider Reason for Visit Reason Comments Results [facility] Encounter Details Date Type Department Care Team Description 01/18/2022 Clinical Communication Division of Tracy Wolf ([facility]) Community Internal Kimberli Purdy R.N. [facility] 200 [facility] [address] [place] [phone] 200 [facility] [place] [phone] Social History Tobacco Use Types Packs/Day Years [...] How often do you attend zoroastrianism or amish More than 4 time s [...] to pay for the very basics like [employer] hat hard 07/09/2020 food, housing, medical care, [...] 3:55 PM CDT M[facility] TELEPHONE COMMUNICATION NOTE Flat Lock Machine Operator: None The patient was called regarding [...] your primary care provider or present to [facility] emergency department for evaluation. Treatment Options Discussion [...] effects may happen. You would need to belt picker and start the medication within 5 days of symptom onset, and you would take the medication twice a day for 5 days. You would need to have someone who is not in isolation or quarantine for COVID-19 belt picker the prescription at a [facility] pharmacy. The medication is provided at no [...] the effects of ritonavir on the breastfed infant or the effects of the drug on milk production. [facility] advises that mothers should pump and dump [...] to decide.The patient was counselled to call [facility] at [phone] if they change their mind. Reviewed that [...] references were used: Nursing or Provider judgement, [facility], [facility] Protocols Kimberli Wolf R.N. [place] [facility] Care Team [facility] and [facility] Telephone Encounter - Kimberli Wolf R.N. - [...] for: Paxlovid and Molnupiravir. Kimberli Wolf R.N. [place] [facility] Care Team and [place] [facility] Infusion Therapy Team [facility] and [facility] documented in this encounter Plan of Treatment Not on filedocumented as of this encounter Visit Diagnoses Not on filedocumented in this encounter Additional Health Concerns Infection Onset Date Last Indicated Resolved Time COVID19 01/16/2022 01/16/2022 02/05/2022 9:06 AM CDT Assessment Noted Time PHQ-9 Depression Total Score: 9 07/08/2020 3:59 PM VICE PRESIDENT OF PRODUCT MARKETING documented as of this encounter Care Teams Injection Molding Process Technician Relationship Specialty Start Date End Date Alberto Locke M.D. PCP - General Family Medicine 04/27/19 [address] [place] [phone] documented as of this encounter
--- OUTSIDE RECORDS SUMMARY | 2022-07-17 08:03 | XMS_ITS | Encounter Summary ---
:1985 Author Organization [facility] Address [address] [place] [address] Care Team Providers Name Role Phone Alberto Locke M.D. Primary Care Provider Encounter Details Date Type Department Care Team Description 05/13/2022 Hospital Department of [place], Surveillance Encounter Laboratory [facility] O, Intrauteri ne Device Medicine in [address] [phone] [phone] Social History Tobacco Use Types Packs/Day Years [...] How often do you attend yarsani or samaritan More than 4 time s [...] Performed At Patho logist [place], [address] (H) <5 IU/L 05/13/2022 [facility] Quantitative, 1:11 PM CDT , P Specimen Anatomical Collection Method Collection Time Receive d Time (Source) Location / / Volume Laterality Blood (Blood, 05/13/2022 12:07 05/13/2022 Venous) PM CDT 12:21 PM CDT Rusty Guevara M.D. LAB BLOOD ADD-ON Performing Organization Address City/State/ZIP Code Phon e Number [facility]- [address] [place] [address] [facility] [place] [address] System in [place] [address] documented in this encounter Visit Diagnoses Diagnosis Surveillance Intrauterine Device documented in this encounter Additional Health Concerns Assessment Noted Time PHQ-9 Depression Total Score: 9 07/08/2020 3:59 PM THREAD INSPECTOR documented as of this encounter Care Teams Engineering Designer Relationship Specialty Start Date End Date Alberto Locke M.D. PCP - General Family Medicine 04/27/19 [address] [place] [address] documented as of this encounter
--- OUTSIDE RECORDS SUMMARY | 2022-07-17 08:03 | XMS_ITS | Encounter Summary ---
:1985 Author Organization [facility] Address [address] [place] [address] Care Team Providers Name Role Phone Alberto Locke M.D. Primary Care Provider Reason for Visit Reason Comments Ankle Injury Encounter Details Date Type Department Care Team Description 05/26/2022 Emergency [place] [facility], Jeaneth Bustillos, Inj ury Ankle Initial Right (Primary Dx); Department P.A.-C. Sprain Ankle Initial Right [address] [place] [phone] Social History Tobacco Use Types Packs/Day [...] How often do you attend orthodoxy or mandaen More than 4 time s [...] disposition will be home. Nuno Quijano, ZEYAD, HANDLE BAR ASSEMBLER, PROP AND SCENERY MAKER-C, AGACNP-BC, ENP-C Emergency Medicine Nuno Quijano C.N.P. [...] Hemorrhage Gastrointestinal 11/13/2017 Hypertension NOS Hypovolemic Shock ([facility]) 11/11/2017 Sleep Apnea does not use CPAP machine Patient Active Problem List Diagnosis Body Mass Index 60.0 To 69.9 Adult ([facility]) Abuse Tobacco Smoking Migraine Headache Apnea Sleep Obstructive Gastroesophageal Reflux Disease NOS Attention Deficit With Hyperactivity Disorder Depression Major Recurrent ([facility]) Diarrhea Medications: No current facility-administered medications on [...] Splint Application Performed by: Jeaneth Earl P.A.-C., MBrittaney S. Authorized by: Jeaneth Earl P.A.-C. M .SBrittaney PROCEDURE DETAILS Immobilization: ??Brace Brace [...] Earl P.A.-C. IMG DIAGNOSTIC IMAGING PROCE SANDRINE documented in this encounter Visit Diagnoses Diagnosis Injury Ankle Initial Right - Primary Sprain Ankle Initial Right documented in this encounter Additional Health Concerns Assessment Noted Time PHQ-9 Depression Total Score: 9 07/08/2020 3:59 PM CONTRACT TECHNICIAN documented as of this encounter Care Teams Sail Maker Relationship Specialty Start Date End Date Alberto Locke M.D. PCP - General Family Medicine 04/27/19 [address] [place] [phone] documented as of this encounter
--- OUTSIDE RECORDS SUMMARY | 2022-07-17 08:03 | XMS_ITS | Encounter Summary ---
:1985 Author Organization [facility] Address [address] [place] [address] Care Team Providers Name Role Phone Alberto Locke M.D. Primary Care Provider Reason for Referral Outpatient (Routine) - Authorized Specialty Diagnoses / Procedures Referred By Contact Refer red To Contact Orthopedic Surgery Nicolette Moise APRN, [facility] [place] [facility] C.N.P., D.N.P. [address] [place] [address] Referral ID Status Reason Start Date Expiration Date Visits V isits Requested Authorized [id number] Authorized 05/05/2022 05/04/2025 1 1 RI/CAT/PET Scan (Routine) - Pending Review Specialty Diagnoses / Procedures Referred By Contact Refer red To Contact Radiology Diagnoses Pain Knee Left Nicolette Moise APRN, [facility] [place] [facility] Procedures MR Knee Left without IV Contrast C.N.P., D.N.P. [address] [place] [address] Referral ID Status Reason Start Date Expiration Date Visits V isits Requested Authorized [id number] Pending 05/05/2022 05/05/2023 1 1 Review Encounter Details Date Type Department Care Team Description 05/05/2022 Orders Only Department of Nicolette Moise L, Pain Knee L eft Orthopedic Surgery in Vinh RIVERO, (Prim shonna Dx) Caroline Toure D.N.P. [address] [place] [phone] Social History Tobacco Use Types Packs/Day [...] How often do you attend anabaptist or latter day More than 4 time [...] and all outpatients) (Approximate), Expires: 08/04/2023 Scheduled Referrals Name Type Priority Associated Order Schedule Diagnoses Orthopedic Surgery Outpatient Referral Routine Ex pected: office visit 05/05/2022 (clinic) (Approximate), Expires: 08/04/2023 documented as of this encounter Visit Diagnoses Diagnosis Pain Knee Left - Primary documented in this encounter Additional Health Concerns Assessment Noted Time PHQ-9 Depression Total Score: 9 07/08/2020 3:59 PM TABLEAU DEVELOPER documented as of this encounter Care Teams Resident Advisor Relationship Specialty Start Date End Date Alberto Locke M.D. PCP - General Family Medicine 04/27/19 [address] [place] [address] documented as of this encounter
--- OUTSIDE RECORDS SUMMARY | 2022-07-17 08:03 | XMS_ITS | Encounter Summary ---
:1985 Author Organization [facility] Address [address] [place] [address] Care Team Providers Name Role Phone Alberto Locke M.D. Primary Care Provider Encounter Details Date Type Department Care Team Description 05/02/2022 Emergency [place] [facility] [place], Carlie Bronchitis (Primary Department A, HAM STRIPPER, C.N.P., Dx) [address] [place], [place] [address], [place] [address] [place] [address] [place], [place] [phone] [address] (Wo rk) Social History Tobacco Use [...] How often do you attend nondenominational or yazdanism More than 4 time s [...] sent through Care Everywhere. Acute Bronchitis Adult [id number]-eg-Xhzs (South African)documented in this encounter Medications at Time of [...] Total Score: 9 07/08/2020 3:59 PM CLIENT SUCCESS SPECIALIST documented as of this encounter Care Teams Loose Hand Packer Relationship Specialty Start Date End Date Alberto Locke M.D. PCP - General Family Medicine 04/27/19 [place] [address] documented as of this encounter
--- OUTSIDE RECORDS SUMMARY | 2022-07-17 08:03 | XMS_ITS | Encounter Summary ---
:1985 Author Organization [facility] Address [address] [place] [address] Care Team Providers Name Role Phone Alberto [...] Type Department Care Team Description 02/21/2022 Emergency [place] [facility] [place], Infection Urinary Department Ray Mustafa M.D. Tract (Primary Dx) [address] [place], [place] [phone] [phone] (Wo rk) Social History Tobacco Use Types [...] How often do you attend caodaism or nondenominational More than 4 time s [...] were examined and treated today in the [facility] Emergency Department (ED) on an emergency [...] through Care Everywhere. Urinary Tract Infection Adult (Bruneian)documented in this encounter Medications at Time of [...] 3:35 AM CDT) Analysis Performed At Patho logist Time Signature Source Urine, Urine, 02/21/2022 [facility] [...] 8.0 02/21/2022 3:44 AM CDT [facility] Specific [place] 1.022 1.001 - 1.035 02/21/2022 3:44 AM [...] City/State/ZIP Code Phon e Number [facility]- [address] [place] [address] [address] [place] [address] System in [address] Basic Metabolic Panel (02/21/2022 2:36 AM CDT) [...] CDT eGFR-Black/Afric >90 >=60 02/21/2022 [facility] an Qatari mL/min/BSA 3:03 AM CDT Comment: ----ADDITIONAL INFORMATION---- [...] City/State/ZIP Code Phon e Number [facility]- [facility] [place] [place] [address] [address] [place] [address] System in [address] CBC with Differential, Blood (02/21/2022 2:36 AM [...] City/State/ZIP Code Phon e Number [facility]- [address] [place], [place] [address] [facility] [place] [address] System in [place] [address] (ABNORMAL) Blood Gas with Coox, Venous (02/21/2022 2:36 AM CDT) [facility] Method Time Signature Venous Sample Venipunct [...] City/State/ZIP Code Phon e Number [facility]- [address] [place], [place] [address] [address] [place] [address] System in [place] [address] documented in this encounter Visit Diagnoses Diagnosis Infection Urinary Tract - Primary documented in this encounter Additional Health Concerns Assessment Noted Time PHQ-9 Depression Total Score: 9 07/08/2020 3:59 PM GATHERING MACHINE SETTER documented as of this encounter Care Teams Airline Reservationist Relationship Specialty Start Date End Date Alberto Locke M.D. PCP - General Family Medicine 04/27/19 [address] [place] [phone] documented as of this encounter
--- OUTSIDE RECORDS SUMMARY | 2022-07-17 08:03 | XMS_ITS | Encounter Summary ---
:1985 Author Organization [facility] Address [address] [place] [address] Care Team Providers Name Role Phone Alberto Locke M.D. Primary Care Provider Reason for Referral Outpatient (Routine) - Authorized Specialty Diagnoses / Procedures Referred By Contact Refer red To Contact Family Medicine Diagnoses Diarrhea Pain Generalized Abdominal Nausea Alaina Stratton APRN [facility] C.N.P., D.N.P. [address] [place] [address] Referral ID Status Reason Start Date Expiration Date Visits V isits Requested Authorized [id number] Authorized 02/17/2022 02/17/2023 1 1 Reason for Visit Reason Comments Symptom Assessment Encounter Details Date Type Department Care Team Description 02/17/2022 Office Visit Department of Alaina Stratton Diarrhea (Pr imary Dx); Internal Medicine in JOSEFA Bustillos, C.N.P., [place]; [place], [place] D.N.P. Pain Generalized Abdominal; [address] Shortness Of Breath; [place], [place] Gastroesophagea l Reflux Disease Without Esophagitis [phone] Social History Tobacco Use Types Packs/Day Years [...] How often do you attend taoism or yazdanism More than 4 time s [...] when she tries to eat. Recommended trying [id number]-[id number] Prilosec daily for up to 30 days. [...] in this encounter Plan of Treatment Scheduled Referrals Name Type Priority Associated Diagnoses Order [facility] Medicine Outpatient Referral Routine Diarrhea Expected: [...] Panel, PCR, Feces (02/17/2022 7:48 PM CDT) [facility] Method Time Signature Specimen Source STOOL 02/17/2022 [...] using the FDA-cl eared FilmArray GI Panel ([employer] Specimen Anatomical Collection Method Collection Time Receive d Time (Source) Location / / Volume Laterality Stool (Stool) 02/17/2022 7:48 PM 02/18/20 7:48 CDT PM CDT Alaina Stratton APRN C.N.P., D.N.P. LAB MICROBIOLOGY - GENERAL ORDERABLES Performing Organization Address City/State/ZIP Code Phon e Number [facility]- [address] [place], [place] [address] [facility] [place] [address] System in [place] Test, POCT, Urine (lab) (02/17/2022 7:47 PM CDT) P athologist Signature Negative 02/17/2022 [facility] Test, POCT, U 7:52 PM CDT Specimen Anatomical Collection Method Collection Time Receive d Time (Source) Location / / Volume Laterality Urine 02/17/2022 7:47 PM 2 7:47 CDT PM CDT Alaina Stratton APRN, Marlyn.N.P., D.N.P. LAB POCT ORDERABL ES - DEVICE Performing Organization Address City/State/ZIP Code Phon e Number [facility]- [address] [place], [place] [address] [facility] [place] [address] System in [place] [address] [place] NT-Pro B-Type Natriuretic Peptide (BNP) (02/17/2022 6:38 [...] e Number [facility]- [address] [place], [place] [address] [facility] [place] [address] System in [place] [address] [place] (ABNORMAL) CRP (C-Reactive Protein) (02/17/2022 6:38 PM CDT) athologist [facility] C-Reactive 21.7 (H) <=8.0 mg/L 02/17/2022 [facility] Protein (CRP), 7:10 PM CDT P Specimen Anatomical Collection Method Collection Time Receive d Time (Source) Location / / Volume Laterality Blood (Blood, 02/17/2022 6:38 PM 02/18/20 6:44 Venous) CDT PM CDT Marlyn Rosenberg APRN.N.P., D.N.P. LAB BLOOD ADD-ON Performing Organization Address City/[facility] Phon e Number [facility]- 701 [facility] [place], [place] [address] [address] [place] [facility] [place] [address] System in [place] [address] [place] [address] Lipase (02/17/2022 6:38 PM CDT) athologist [facility] Lipase, P 22 13 - 60 U/L 02/17/2022 7:10 [facility] PM CDT Specimen Anatomical Collection Method Collection Time Receive d Time (Source) Location / / Volume Laterality Blood (Blood, 02/17/2022 6:38 PM 02/18/20 6:44 Venous) CDT PM CDT Marlyn Rosenberg APRN.N.P., D.N.P. LAB BLOOD ADD-ON Performing Organization Address City/[facility]/ZIP Code Phon e Number [facility]- [address] [facility] [place], [place] [address] [address] [place] [facility] [place] [address] System in [place] [address] [place], [place] [address] Comprehensive Metabolic Panel (02/17/2022 6:38 PM CDT) [...] CDT eGFR-Black/Afric >90 >=60 02/17/2022 [facility] an [place] African mL/min/BSA 7:10 PM CDT Comment: ----ADDITIONAL INFORMATION---- [...] 22 6:44 Venous) CDT PM CDT Alaina Bustillos Chayito RIVERO C.N.P., Priti.N.P. LAB BLOOD ADD-ON Performing Organization Address City/State/ZIP Code Phon e Number [facility]- [address] [facility] [place] [address] [facility] [facility] [place] [address] System in [place] 701 [facility] (ABNORMAL) CBC with Differential, Blood (02/17/2022 6:38 PM CDT) [facility] Method Time Signature Hemoglobin 15.5 (H) 11.6 [...] 02/18/20 6:44 Venous) CDT PM CDT Alaina Bustillos Chayito RIVERO, C.N.P., D.N.P. LAB BLOOD ADD-ON Performing Organization Address City/State/ZIP Code Phon e Number [facility]- [address] [place], [place] [address] [place] [address] System in [place] [address] documented in this encounter Visit Diagnoses Diagnosis Diarrhea - Primary Nausea Pain Generalized Abdominal Shortness Of Breath Gastroesophageal Reflux Disease Without Esophagitis documented in this encounter Additional Health Concerns Assessment Noted Time PHQ-9 Depression Total Score: 9 07/08/2020 3:59 PM GAMER documented as of this encounter Care Teams Computational Physicist Relationship Specialty Start Date End Date Alberto Locke M.D. PCP - General Family Medicine 04/27/19 [address] [place] [address] documented as of this encounter
--- OUTSIDE RECORDS SUMMARY | 2022-07-17 08:03 | XMS_ITS | Encounter Summary ---
:1985 Author Organization [facility] Address [address] [place] [address] Care Team Providers Name Role Phone Alberto Locke M.D. Primary Care Provider Reason for Visit Reason Comments Leg Swelling COVID Nurse Line Encounter Details Date Type Department Care Team Description 11/04/2021 Nurse Triage Department of [facility] Rylee Calvert, Leg Swe lling; [facility], [facility], in [place], [address] [place] [address] [place] [address] [place] [address] [phone] Social History Tobacco Use Types Packs/Day Years [...] How often do you attend sabianism or congregation More than 4 time s [...] to pay for the very basics like [place] hat hard 07/09/2020 food, housing, medical care, [...] in office. Patient was warm transferred to [facility] at the clinic for further assistance. [...] frequently with soap and water, use hand clay grinder if soap and water aren't available. -Wear [...] care: Yes The following references were used: [facility] novel coronavirus (COVID- 19) resources Reason for Disposition ??? [1] Thigh, calf, or ankle swelling AND [2] bilateral AND [3] 1 side is more swollen Protocols used: LEG SWELLING AND [id number] documented in this encounter Plan of Treatment Not on filedocumented as of this encounter Visit Diagnoses Not on filedocumented in this encounter Additional Health Concerns Assessment Noted Time PHQ-9 Depression Total Score: 9 07/08/2020 3:59 PM DRY BOX OPERATOR documented as of this encounter Care Teams Manager Internal Relationship Specialty Start Date End Date Alberto Locke M.D. PCP - General Family Medicine 04/27/19 [address] [place] [address] documented as of this encounter
--- OUTSIDE RECORDS SUMMARY | 2022-07-17 08:03 | XMS_ITS | Encounter Summary ---
:1985 Author Organization [facility] Address [address] [place] [address] Care Team Providers Name Role Phone Alberto Locke M.D. Primary Care Provider Reason for Visit Reason Onset Date Comments Testing For Upper Respiratory Virus Symptoms 01/16/2022 Encounter Details Date Type Department Care Team Description 01/16/2022 External Outreach Department of [facility] Yamel Collins Contact With And (Suspected) Exposure To COVID-19; Medicine, [place] T, P.A.-C. Infection Upper Respiratory Clinic, in [address] [address] [place], [place] [phone] [address] (Work) [phone] Social History Tobacco Use Types Packs/Day Years [...] How often do you attend protestant or confucianist More than 4 time s [...] coordinate the care. For questions, contact the [place] Covid Care Team ([facility]CT): Pager: [phone] In basket: P RST/[facility] COVID-19 POSITIVE Covid Care e-consult NOTE: At the time of testing, patients are instructed to obtain the result by calling the [facility] result line or by checking their online [...] RNA, V Symptomatic (01/16/2022 8:39 AM CDT) [facility] Method Time Signature SARS-CoV-2 Swab, 01/17/2022 ECLR Specimen Nasopharynx 8:57 PM CDT Source SARS CoV-2 Detected (A) Undetected 01/17/2022 ECLR RNA, TMA 8:57 PM CDT Comment: SARS-CoV-2 RNA present. ----ADDITIONAL INFORMATION---- This molecular amplification test was pe rformed using the Aptima SARS-CoV-2 assay ([employer] on the Simply Hireds tem under emergency use authorization (EUA) by the U.S. Food and Drug Administ ben. Fact sheets for this EUA assay can be fo und at the following links: For Healthcare Providers: https://www.fd a.gov/media/398574/download For Patients: https://www.fda.gov/media/ 487213/download Specimen Anatomical Collection Method Collection Time Receive d Time (Source) Location / / Volume Laterality Varies 01/16/2022 8:39 AM 4:18 (Nasopharynx) CDT PM CDT Venu Collins P.A.-C. LAB MICROBIOLOGY - GENERAL O BOBBY Performing Organization Address City/State/ZIP Code Phon e Number [facility]- [address] [place] [phone] [facility] [place] [address] System in [address] documented in this encounter Visit Diagnoses Diagnosis Contact With And (Suspected) Exposure To COVID-19 Infection Upper Respiratory documented in this encounter Additional Health Concerns Infection Onset Date Last Indicated Resolved Time COVID19 Pending 01/16/2022 01/16/2022 01/17/2022 8:58 PM CDT Assessment Noted Time PHQ-9 Depression Total Score: 9 07/08/2020 3:59 PM SIDE PULLER documented as of this encounter Care Teams Associate Financial Analyst Relationship Specialty Start Date End Date Alberto Locke M.D. PCP - General Family Medicine 04/27/19 [address] [place] [address] documented as of this encounter
--- OUTSIDE RECORDS SUMMARY | 2022-07-17 08:03 | XMS_ITS | Encounter Summary ---
:1985 Author Organization [facility] Address [address] [place] [address] Care Team Providers Name Role Phone Alberto Locke M.D. Primary Care Provider Reason for Visit Outpatient (Routine) - Canceled Specialty Diagnoses / Procedures Referred By Contact Refer red To Contact Diagnoses Surveillance Intrauterine Device [place], Oluwafunmilayo O, [facility] Region Procedures US Pelvis Transvaginal and Transabdominal US Pelvis Transvaginal and Transabdominal M.DBrittaney [address] [place] [address] Referral ID Status Reason Start Date Expiration Date Visits V isits Requested Authorized [id number] Canceled 05/13/2022 05/13/2023 1 1 Encounter Details Date Type Department Care Team Description 05/13/2022 Hospital Department of [place], Surveillance Encounter Radiology in [place] Oluwafunmilayo O, Intrau terine Device [place], [place] M.DBrittaney [address] [facility] [address] [place] [phone] (Wo rk) Social History Tobacco Use Types [...] How often do you attend orthodox or bahai More than 4 time s [...] Unknown, NGA: N/A INTRAUTERINE Pole: Not seen, [place]-Rump Length: N/A Gestational Sac: Normal Yolk Sac: [...] Unknown, NGA: N/A INTRAUTERINE Pole: Not seen, [place]-Rump Length: N/A Gestational Sac: Normal Yolk Sac: [...] Depression Total Score: 9 07/08/2020 3:59 PM RETOUCHER documented as of this encounter Care Teams Manager Enterprise Content Management Relationship Specialty Start Date End Date Alberto Locke M.D. PCP - General Family Medicine 04/27/[address] [place] [address] documented as of this encounter
--- OUTSIDE RECORDS SUMMARY | 2022-07-17 08:03 | XMS_ITS | Encounter Summary ---
:1985 Author Organization [facility] Address [address] [place] [address] Care Team Providers Name Role Phone Alberto Locke M.D. Primary Care Provider Encounter Details Date Type Department Care Team Description 05/13/2022 Hospital Department of [place], Frequency Urin shonna Encounter Laboratory Rusty Santiago, Medicine in [address] [address] [phone] Social History Tobacco Use Types Packs/Day Years [...] (05/13/2022 12:30 PM CDT) Analysis Performed At [facility] Time Signature Source Urine, Urine, 05/13/2022 RDWG [...] 8.0 05/13/2022 12:51 PM CDT RDWG Specific [place] >=1.030 1.001 - 1.035 05/13/2022 12:51 PM [...] M.D. LAB URINE ORDERABLES Performing Organization Address City/[facility]/ZIP Code Phon e Number [facility]- [address] [place] [place], [place] [address] [place] [address] System in [place] [address] (ABNORMAL) Bacterial Culture, Aerobic + Susc, Urine (05/13/2022 12:30 PM CDT) [facility] gist Method Time Signature Urine Culture Mixed 05/14/2022 ECLR microbiota (A) 6:52 PM CDT Specimen Anatomical Collection Method Collection Time Receive d Time (Source) Location / / Volume Laterality Urine (Urine, 05/13/2022 12:30 05/13/2022 9:38 Midstream) PM CDT PM CDT Comment: Specimen Source Site: Urine Rusty Guevara M.D. LAB MICROBIOLOGY - GENE RAL ORDERABLES Performing Organization Address City/[facility] Phon e Number [facility]- [address] [place] [address] [phone] [facility] [place] [address] System in [address] documented in this encounter Visit Diagnoses Diagnosis Frequency Urinary documented in this encounter Additional Health Concerns Assessment Noted Time PHQ-9 Depression Total Score: 9 07/08/2020 3:59 PM WATERPROOFER documented as of this encounter Care Teams Purchasing And Claims Supervisor Relationship Specialty Start Date End Date Alberto Locke M.D. PCP - General Family Medicine 04/27/19 [address] [place] [phone] documented as of this encounter
--- OUTSIDE RECORDS SUMMARY | 2022-07-17 08:03 | XMS_ITS | Encounter Summary ---
:1985 Author Organization [facility] Address [address] [place] [address] Care Team Providers Name Role Phone Alberto Locke M.D. Primary Care Provider Reason for Referral Outpatient (Routine) - Authorized Specialty Diagnoses / Procedures Referred By Contact Refer red To Contact Diagnoses Edema Dyspnea On Exertion Shortness Of Breath Nichole Maria M.D. [facility] Region Procedures ECG 12 Lead [address] [place] [phone] Referral ID Status Reason Start Date Expiration Date Visits V isits Requested Authorized [id number] Authorized 11/04/2021 11/04/2022 1 1 Outpatient (Routine) - Closed Specialty Diagnoses / Procedures Referred By Contact Refer red To Contact Diagnoses Edema Dyspnea On Exertion Shortness Of Breath Nichole Maria M.D. [facility] Procedures DX Chest AP or PA and Lateral 2 Views [address] [place] [address] Referral ID Status Reason Start Date Expiration Date Visits Requ ested Visits Authorized [id number] Closed 11/04/2021 11/04/2022 1 1 Reason for Visit Reason Comments Edema Bilateral lower legs, with d izziness. Ongoing x several weeks Appointment Request (Routine) - Closed Specialty Diagnoses / Procedures Referred By Contact Refer red To Contact Family Medicine Referral ID Status Reason Start Date Expiration Date Visits Requ ested Visits Authorized [id number] Closed 11/04/2021 11/04/2022 1 1 Encounter Details Date Type Department Care Team Description 11/04/2021 Office Visit Department of Nichole Maria, Edema ( Primary Dx); Internal Medicine in M.D. Dyspnea On Exertion; [place], [place] [address] Shortness Of Breath; [address] [place], [place] Headache New; [place] [address] Apnea Sleep Obstructive [address] [phone] Social History Tobacco Use Types Packs/Day Years [...] How often do you attend rastafarian or roman catholic More than 4 time [...] section within an hour of betting to [facility]. That was 3 years ago. She [...] and afebrile. Suspect benign. Conservative therapies with rswl-bmx-ufjfsyl meds, stretching, relaxation ensuring adequate hydration and [...] d isease. Nichole CH DIAGNOSTIC IMAGING PROCE [facility] ECG 12 Lead (11/04/2021 3:40 PM CDT) P athologist Signature Ventricular Rate 82 BPM MUSE ECG/Min PA Interval 146 ms MUSE QRSD Interval 74 ms MUSE QT Interval 360 ms MUSE QTC Interval 420 ms MUSE P [place] 49 degrees MUSE R [place] 55 degrees MUSE T Wave [place] 56 degrees MUSE Specimen Anatomical Collection Method [...] complexes are now present Reviewed by KAREN uFchs Nichole Maria M.D. ECG ORDERABLES Performing Organization Address City/State/ZIP Code Phon e Number MUSE MUSE NA Test, POCT, Urine (lab) (11/04/2021 3:31 PM CDT) athologist Signature Negative 11/04/2021 RDW[facility] Test, POCT, U 3:39 PM CDT Specimen Anatomical Collection Method Collection Time Receive d Time (Source) Location / / Volume Laterality Urine (Urine, 11/04/2021 3:31 PM 11/05/19 22 3:31 Clean Catch) CDT PM CDT Nichole Maria M.D. LAB POCT ORDERABLES - DEVICE Performing Organization Address City/State/ZIP Code Phon e Number [facility]- [address] [place], [place] [address] [facility] [place] [address] System in [place] [address] hCG (Human Chorionic Gonadotropin), [...] Phon e Number [facility]- [address] [place], [place] [address] [place] [address] System in [place] [address] [place] [address] T4 (Thyroxine), Free (11/04/2021 3:23 PM CDT) P athologist Signature T4 (Thyroxine), 1.3 0.9 - 1.7 11/04/2021 RDW[facility] Free, P ng/dL 4:03 PM CDT Comment: Biotin has been identified by the doug saucedo as a potential interfering substance. ??Higher concentr ations of biotin may be found in multivitamins, hair/nail supple ments, and workout supplements. ??If the result does not [facility] clinical observations, repeat testing after patient refrains fr om the use of supplements for at least 12 hours. Specimen Anatomical Collection Method Collection Time Receive d Time (Source) Location / / Volume Laterality Blood (Blood, 11/04/2021 3:23 PM 11/05/19 3:29 Venous) CDT PM CDT Nichole Maria M.D. LAB BLOOD ADD-ON Performing Organization Address City/State/ZIP Code Phon e Number [facility]- [address] [place], [place] [address] [facility] [place] [address] System in [place] [address] [place], [place] [address] S-TSH (Thyroid-Stimulating Hormone - Sensitive) (11/04/2021 3:23 [...] Phon e Number [facility]- [address] [place], [place] [address] [facility] [place] [address] System in [place] [address] D-Dimer (11/04/2021 3:23 PM CDT) athologist Signature [...] Phon e Number [facility]- [address] [place], [place] [address] [facility] [place] [address] System in [place] [address] Basic Metabolic Panel (11/04/2021 3:23 PM CDT) [...] CDT eGFR-Black/Afric >90 >=60 11/04/2021 RDW[facility] an [place] mL/min/BSA 3:51 PM CDT Comment: ----ADDITIONAL INFORMATION---- [...] Laterality Blood (Blood, 11/04/2021 3:23 PM 11/05/19 22 3:29 Venous) CDT PM CDT Nichole Maria M.D. LAB BLOOD ADD-ON Performing Organization Address City/State/ZIP Code Phon e Number [facility]- [address] [place], [place] [address] [place] [address] System in [place] [address] (ABNORMAL) CBC with Differential, Blood (11/04/2021 3:23 PM CDT) Patholo gist Method Time Signature Hemoglobin 14.8 11.6 - [...] Laterality Blood (Blood, 11/04/2021 3:23 PM 11/05/19 22 3:29 Venous) CDT PM CDT Nichole Maria M.D. LAB BLOOD ADD-ON Performing Organization Address City/State/ZIP Code Phon e Number [facility]- [address] [place], [place] [address] [place], [place] [address] [place] [address] System in [address] NT-Pro B-Type Natriuretic Peptide (BNP) (11/04/2021 3:23 PM CDT) P athologist Signature NT-Pro BNP 125 <=140 pg/mL [...] supplements. ??If the result does not [facility] clinical observations, repeat testing after patient refrains fr om the use of supplements for at least 12 hours. Specimen Anatomical Collection Method Collection Time Receive d Time (Source) Location / / Volume Laterality Blood (Blood, 11/04/2021 3:23 PM 11/05/19 3:29 Venous) CDT PM CDT Nichole Maria M.D. LAB BLOOD ADD-ON Performing Organization Address City/State/ZIP Code Phon e Number [facility]- [address] [place] [address] [place] [address] System in [address] documented in this encounter Visit Diagnoses Diagnosis Edema - Primary Dyspnea On Exertion Shortness Of Breath Headache New Apnea Sleep Obstructive Edema Dyspnea On Exertion Shortness Of Breath documented in this encounter Additional Health Concerns Assessment Noted Time PHQ-9 Depression Total Score: 9 07/08/2020 3:59 PM TECHNICAL SOLUTION ARCHITECT documented as of this encounter Care Teams Forensic Anthropologist Relationship Specialty Start Date End Date Alberto Locke M.D. PCP - General Family Medicine 04/27/[address] [place] [phone] documented as of this encounter
--- OUTSIDE RECORDS SUMMARY | 2022-07-17 08:03 | XMS_ITS | Encounter Summary ---
:1985 Author Organization [facility] Address [address] [place] [address] Care Team Providers Name Role Phone Alberto Locke M.D. Primary Care Provider Reason for Visit Reason Comments Vomiting Diarrhea COVID Nurse Line Encounter Details Date Type Department Care Team Description 02/17/2022 Nurse Triage Department of [facility] Gina Su V omiting; Diarrhea; Medicine, [place] O, R.N. COVID Nurse Line Clinic, in [place], [address] [place] [address] [address] [facility] [address] [place] [address] Social History Tobacco Use Types [...] How often do you attend episcopal or yazidi More than 4 time s [...] 3 days. Patient was warm transferred to [place] at the clinic for further assistance. Reason for Disposition ? ? [1] MILD vomiting with diarrhea AND [2] present > 5 days Protocols used: [id number] Care Advice Patient/Caregiver understands and will follow [...] Powerade). * Other options: 1/2 strength flat lemon-wilton soda or yenni stewrat. * After 4 hours without vomiting, increase [...] RSV and Strep Select appropriate region: : [place] Are all of the following Strep criteria [...] frequently with soap and water, use hand canine service teacher if soap and water aren't available. -Wear [...] care: Yes The following references were used: [facility] novel coronavirus (COVID- 19) resources documented in this encounter Plan of Treatment Not on filedocumented as of this encounter Visit Diagnoses Not on filedocumented in this encounter Additional Health Concerns Assessment Noted Time PHQ-9 Depression Total Score: 9 07/08/2020 3:59 PM LAST CHALKER documented as of this encounter Care Teams Immigration Patrol Inspector Relationship Specialty Start Date End Date Alberto Locke M.D. PCP - General Family Medicine 04/27/19 [address] [place] [address] documented as of this encounter
--- OUTSIDE RECORDS SUMMARY | 2022-07-17 08:03 | XMS_ITS | Encounter Summary ---
:1985 Author Organization [facility] Address [address] [place] [address] Care Team Providers Name Role Phone Alberto Locke M.D. Primary Care Provider Reason for Referral Outpatient (Routine) - Authorized Specialty Diagnoses / Procedures Referred By Contact Refer red To Contact Diagnoses Surveillance Intrauterine Device Examination Test With Positive Result (HCC) Rusty Guevara [facility] Procedures IUD Removal M.Kelly [address] [place] [address] Referral ID Status Reason Start Date Expiration Date Visits V isits Requested Authorized [id number] Authorized 05/13/2022 05/13/2023 1 1 utpatient (Routine) - Authorized Specialty Diagnoses / Referred By Contact Referred To Procedures Contact Obstetrics and Rusty Guevara [facility] Gynecology Sera Santiago [address] [place] [address] Referral ID Status Reason Start Date Expiration Date Visits V isits Requested Authorized [id number] Authorized 05/13/2022 05/12/2025 1 1 Reason for Visit Reason Comments Follow-up Appointment Request (Routine) - Closed Specialty Diagnoses / Procedures Referred By Contact Refer red To Contact Obstetrics and Gynecology Referral ID Status Reason Start Date Expiration Date Visits Requ ested Visits Authorized [id number] Closed 05/13/2022 05/13/2023 1 Encounter Details Date Type Department Care Team Description 05/13/2022 Office Visit Department of [place], Not Reason For Visit (HCC) (Primary Dx); Obstetrics and Rusty Santiago M.D. Surveillance Intrauterine Device; Gynecology in [facility] [address] Infection Urinary Tract Acute; [place], [place] Examination Test W ith Positive Result (HCC) [address] [facility] [address] [place], [place] [phone] (Wo rk) [address] [phone] Social History Tobacco Use Types Packs/Day Years [...] How often do you attend synagogue or lutheran More than 4 time s [...] 07/2020. She denies any abdominal pain. OBJECTIVE Air Pollution Inspector- Taryn Ruiz PAINTER SPRING VITAL SIGNS Blood Pressure: (139)/(71) 139/71 Weight: [...] PM Result Value HCG, Quantitative, , P [address] (H) Urinalysis with Microscopic: Collection Time: 05/13/22 12:30 PM Result Value Source Urine, Urine, Midstream Clarity Slightly Cloudy (A) Color Yellow Blood Large (A) Nitrite Negative Leukocyte Esterase Moderate (A) Protein Trace Glucose Negative Ketones, QI(U) Negative Bilirubin Negative pH 5.5 Specific [place] >=1.030 Urobilinogen 0.2 White Blood Cells 11-20 [...] for a repeat ultrasound to confirm viability. POPCORN ATTENDANT documented in this encounter Plan of Treatment Scheduled Orders Name Type Priority Associated Order Schedule Diagnoses US OB First Trimester Imaging RAD - Routine (most No t Expected: and Transvaginal inpatients and all Reason For Visit 1 outpatients) ([facility]) (Approximate), Expires: 08/12/2023 Scheduled Referrals Name Type Priority Associated Order Schedule Diagnoses Obstetrics and Outpatient Referral Routine Expect ed: Gynecology office 05/27/2022 visit (clinic) (Approximate) , Expires: 08/12/2023 documented as of this encounter Procedures Procedure Name Priority Date/Time Associated Diagnosis Comme nts OR REMOVAL OF Routine 05/13/2022 1:15 PM Surveillance Results for this INTRAUTERINE DEVICE CDT Intrauterine Device procedure are in the results Examination Test section. With Positive Result (HCC) documented in this encounter Results OR REMOVAL OF INTRAUTERINE DEVICE (05/13/2022 1:15 PM [...] Depression Total Score: 9 07/08/2020 3:59 PM SUPPLIER ENGINEER documented as of this encounter Care Teams Tank Operator Relationship Specialty Start Date End Date Alberto Locke M.D. PCP - General Family Medicine 04/27/19 [address] [place] [phone] documented as of this encounter
--- OUTSIDE RECORDS SUMMARY | 2022-07-17 08:04 | XMS_ITS | Encounter Summary ---
:1985 Author Organization [facility] Address [address] [place] [address] Care Team Providers Name Role Phone Alberto Locke M.D. Primary Care Provider Encounter Details Date Type Department Care Team Description 05/12/2021 Clinical Communication Department of [facility] Alberto Fregoso M.D. [facility], [address], [facility] [phone] [place] [address] [place], [place] (Work) [phone] Social History Tobacco Use [...] How often do you attend judaism or latter day More than 4 time [...] to pay for the very basics like Neo[employer] hat hard 07/09/2020 food, housing, medical care, [...] COVID19 Pending 07/15/2021 07/15/2021 07/15/2021 8:38 PM ELEVATOR SERVICE MECHANIC Assessment Noted Time PHQ-9 Depression Total Score: 9 07/08/2020 3:59 PM ELEVATOR SERVICE MECHANIC documented as of this encounter Care Teams Management Coordinator Relationship Specialty Start Date End Date Alberto Locke M.D. PCP - General Family Medicine 04/27/19 [address] [phone] documented as of this encounter
--- OUTSIDE RECORDS SUMMARY | 2022-07-17 08:04 | XMS_ITS | Encounter Summary ---
:1985 Author Organization [facility] Address [address] [place] [address] Care Team Providers Name Role Phone Alberto Locke M.D. Primary Care Provider Reason for Visit Reason Comments Outpatient COVID-19 Testing Encounter Details Date Type Department Care Team Description 07/15/2021 Emergency [place] [facility] [address] [place] [phone] Social History Tobacco Use Types [...] How often do you attend buddhist or anglican More than 4 time s [...] - - Pulse 101 07/15/2021 8:01 PM USABILITY SPECIALIST Temperature - - Respiratory Rate 18 07/15/2021 8:01 PM USABILITY SPECIALIST Oxygen Saturation 94% 07/15/2021 8:01 PM USABILITY SPECIALIST Inhaled Oxygen Concentration - - Weight - - Height - - Body Mass Index - - documented in this encounter Discharge Instructions Discharge InstructionsMichelle Kennedy R.N. - 07/15/2021 8:22 PM CST COVID-19 disease from Coronavirus is rapidly changing. We recognize the uncertainty you may feel at this time, and want to assure you that [facility] is committed to your health and safety. To stay informed, it is highly recommended you seek information from a website that has the most accurate and recent information such as the CDC: https://www.cdc.gov/coronavirus/2019-ncov/downloads/qbmi-aqtj-6842- hFeU-rczo-tysoe.pdf [place] Messages from the CDC link above. [...] positive, patients will be contacted by a [facility] provider. ILITY SPECIALIST documented in this encounter Medications at Time [...] Result s for this COV-2, PCR, RAPID,V USABILITY SPECIALIST procedur e are in the results section. documented in this encounter Results Influenza A/B, SARS CoV-2, PCR, Rapid, Varies Symptomatic (07/15/2021 8:11 PM USABILITY SPECIALIST) [facility] Method Time Signature Influenza A, Negative Negative 07/15/2021 CNFL PCR, Rapid, V 8:38 PM USABILITY SPECIALIST Influenza B, Negative Negative 07/15/2021 CNFL PCR, Rapid, V 8:38 PM USABILITY SPECIALIST SARS CoV-2, Undetected Undetected 07/15/2021 CNFL PCR, Rapid, V 8:38 PM USABILITY SPECIALIST Comment: ----ADDITIONAL INFORMATION---- This RT-PCR test was performed using the Javy SARS-CoV-2 and Influenza A/B Reagent assay from [employer], which has received Emergency Use Authori zation(EUA) by the U.S. Food and Drug Administration . Fact sheets for this Emergency Use Autho rization (EUA) assay can be found at the following link s: For Healthcare Providers: https://www.fda.gov/media/290253/downloa d For Patients: https://www.fda.gov/media/463499/downloa d Infl A/B, SARS CoV-2, PCR, Source Swab, Nasopharynx 07/15/2021 8:38 PM USABILITY SPECIALIST CNFL Specimen Anatomical Collection Method Collection Time Receive d Time (Source) Location / / Volume Laterality Varies 07/15/2021 8:11 PM 8:17 (Nasopharynx) USABILITY SPECIALIST PM USABILITY SPECIALIST Cedric Bush P.A.-C. LAB MICROBIOLOGY - GENERAL O RDERABLES Performing Organization Address City/State/ZIP Code Phon e Number [facility]- [address] [place] [address] [place] [address] System [address] documented in this encounter Visit Diagnoses Not on filedocumented in this encounter Additional Health Concerns Infection Onset Date Last Indicated Resolved Time COVID19 Pending 07/15/2021 07/15/2021 07/15/2021 8:38 PM USABILITY SPECIALIST Assessment Noted Time PHQ-9 Depression Total Score: 9 07/08/2020 3:59 PM USABILITY SPECIALIST documented as of this encounter Care Teams Machine Hamper Maker Relationship Specialty Start Date End Date Alberto Locke M.D. PCP - General Family Medicine 04/27/19 [address] [place] [phone] documented as of this encounter
--- OUTSIDE RECORDS SUMMARY | 2022-07-17 08:04 | XMS_ITS | Encounter Summary ---
:1985 Author Organization [facility] Address [address] [place] [address] Care Team Providers Name Role Phone Alberto Locke M.D. Primary Care Provider Encounter Details Date Type Department Care Team Description 03/12/2020 Orders Only RST PCP HLTH MNT Alberto Locke M. D. [address] [place], [place] [phone] (Wo rk) Social History [...] How often do you attend jewish or orthodox More than 4 time s [...] documented as of this encounter Care Teams Multimedia Specialist Relationship Specialty Start Date End Date Alberto Locke M.D. PCP - General Family Medicine 04/27/19 [address] [place] [address] documented as of this encounter
--- OUTSIDE RECORDS SUMMARY | 2022-07-17 08:04 | XMS_ITS | Encounter Summary ---
:1985 Author Organization [facility] Address [address] [place] [address] Care Team Providers Name Role Phone Alberto Locke M.D. Primary Care Provider Encounter Details Date Type Department Care Team Description 11/22/2020 Orders Only [facility] PCP TH Sa emma Lemos M.D. [address] [place], [place] [phone] (Wo rk) Social History Tobacco Use Types [...] often do you attend oriental orthodox or anabaptism More than 4 time s [...] Depression Total Score: 9 07/08/2020 3:59 PM METAL PRECISION MACHINE ASSEMBLER documented as of this encounter Care Teams Profile Saw Operator Relationship Specialty Start Date End Date Alberto Locke M.D. PCP - General Family Medicine 04/27/19 [address] [place] [phone] documented as of this encounter
--- OUTSIDE RECORDS SUMMARY | 2022-07-17 08:04 | XMS_ITS | Encounter Summary ---
:1985 Author Organization [facility] Address [address] [place] [address] Care Team Providers Name Role Phone Alberto Locke M.D. Primary Care Provider Encounter Details Date Type Department Care Team Description 03/12/2020 Hospital Encounter Department of [facility] laura Brown Laboratory Medicine Leonora Flaherty Other in MccormickMoon M.D. Viral Diseases [place] [address] (COVID-19) [address] [place] [place] [address] [place] [phone] Social History Tobacco Use [...] How often do you attend advent or shinto More than 4 time s [...] Total Antibody, Serum (03/12/2020 5:36 PM CDT) [facility] Method Time Signature SARS-CoV-2 Negative Negative 03/13/2020 [...] was performed using the Javy El ecsys [id number] Reagent assay from [employer], which has received Emergency Use Authori zation(EUA) by the U.S. Food and Drug Administration . Fact sheets for this Emergency Use Autho rization (EUA) assay can be found at the following link s: For Healthcare Providers: https://www.fda.gov/media/542288/downloa d For Patients: https://www.fda.gov/media/671210/downloa d Specimen Anatomical Collection Method Collection Time Receive d Time (Source) Location / / Volume Laterality Blood (Blood, 03/12/2020 5:36 PM 03/13/20 20 3:23 Venous) CDT PM CDT Covid Serology Testing Employer Based LAB MICROBIOLOGY - BLOOD ORDERABLES Performing Organization Address City/State/ZIP Code Phon e Number [facility]- [address] [place] [phone] [facility] [place] [address] System [address] documented in this encounter Visit Diagnoses Diagnosis Encounter For Screening For Other Viral Diseases (COVID-19) documented in this encounter Additional Health Concerns Assessment Noted Time PHQ-9 Depression Total Score: 11 03/05/2020 4:06 PM CD T documented as of this encounter Care Teams Cotton Picker Relationship Specialty Start Date End Date Alberto Locke M.D. PCP - General Family Medicine 04/27/19 [address] [phone] documented as of this encounter
--- OUTSIDE RECORDS SUMMARY | 2022-07-17 08:04 | XMS_ITS | Encounter Summary ---
:1985 Author Organization [facility] Address [address] [place] [address] Care Team Providers Name Role Phone Alberto Locke M.D. Primary Care Provider Reason for Referral Outpatient (Routine) - Closed Specialty Diagnoses / Procedures Referred By Contact Refer red To Contact Diagnoses Insertion Intrauterine Device Leonora Reaves APRN, [facility] Region Procedures IUD - Insertion or Reinsertion w/removal C.N.P. [address] [place] [phone] Referral ID Status Reason Start Date Expiration Date Visits Requ ested Visits Authorized [id number] Closed 08/07/2020 08/07/2021 1 1 ATION AND TRAINING COORDINATOR Reason for Visit Reason Comments Contraception Outpatient (Routine) - Closed Specialty Diagnoses / Procedures Referred By Contact Refer red To Contact Obstetrics and Diagnoses PAR Leonora Reaves APRN, [facility] C.N.P. [address] [place] [address] Referral ID Status Reason Start Date Expiration Date Visits Requ ested Visits Authorized [id number] Closed 07/24/2020 07/24/2021 1 1 Encounter Details Date Type Department Care Team Description 08/07/2020 Office Visit Department of Leonora Reaves, Insertion In trauterine Obstetrics and JOSEFA C.N.P. Device (Primary Dx) Gynecology in [place] [address] [facility] [place] [address] [facility] [address] [place] [place] [phone] [address] (Work) [phone] Social History Tobacco Use Types Packs/Day Years [...] How often do you attend jainism or catholic More than 4 time s [...] Comments Blood Pressure 138/82 08/07/2020 10:53 AM EDUCATION AND TRAINING COORDINATOR Pulse - - Temperature - - Respiratory Rate - - Oxygen Saturation - - Inhaled Oxygen Concentration - - Weight 150 kg (330 lb 11 oz) 08/07/2020 10:53 AM EDUCATION AND TRAINING COORDINATOR Height - - Body Mass Index 60.85 [...] appropriate location of the IUD is verified. DISTRICT FIRE MANAGEMENT OFFICER ATION AND TRAINING COORDINATOR documented in this encounter Plan of Treatment Not on filedocumented as of this encounter Procedures Procedure Name Priority Date/Time Associated Diagnosis Comme nts CA INSERT OF Routine 08/07/2020 11:00 Insertion Results for this INTRAUTERINE DEVICE AM EDUCATION AND TRAINING COORDINATOR Intrauterine Device p rocedure are in the results section. documented in this encounter Results CA INSERT OF INTRAUTERINE DEVICE (08/07/2020 11:00 AM EDUCATION AND TRAINING COORDINATOR) Narrative [facility] - 08/07/2020 11:00 AM EDUCATION AND TRAINING COORDINATOR Leonora Reaves WHNP-BC RBrittaneyN. ? 08/07/2020 11:34 [...] the second attempt at IUD in [facility] in approximately 2 weeks time. [...] of the IUD is verified. Kendal Erazo APRNNBrittaneyPBrittaney OB GYNE ORDERABLES Performing Organization Address City/State/ZIP Code Phon e Number [facility] NA documented in this encounter Visit Diagnoses Diagnosis Insertion Intrauterine Device - Primary documented in this encounter Administered Medications Inactive Administered Medications - up to 3 most recent administrations Medication Order MAR Action Action Date Dose Rate Site levonorgestreL 20 mcg/24 hours (6 Given 08/07/2020 11:30 AM EDUCATION AND TRAINING COORDINATOR 1 each yrs) 52 mg IUD 1 each (MIRENA) 1 each, intrauterine, One-Time Injection, Starting on Wed08/07/20 at 1130, For 1 dose documented in this encounter Additional Health Concerns Assessment Noted Time PHQ-9 Depression Total Score: 9 07/08/2020 3:59 PM EDUCATION AND TRAINING COORDINATOR documented as of this encounter Care Teams Music Education Director Relationship Specialty Start Date End Date Alberto Locke M.D. PCP - General Family Medicine 04/27/19 [address] [place] [address] documented as of this encounter
--- OUTSIDE RECORDS SUMMARY | 2022-07-17 08:04 | XMS_ITS | Encounter Summary ---
:1985 Author Organization [facility] Address [address] [place] [address] Care Team Providers Name Role Phone Alberto Locke M.D. Primary Care Provider Reason for Referral Outpatient (Routine) - Closed Specialty Diagnoses / Procedures Referred By Contact Refer red To Contact Tammie Snyder APRN, C.NJud, M [facility] SE NEHE[place]IA[place] Kent M.S.N. [address] [place] [phone] Referral ID Status Reason Start Date Expiration Date Visits Requ ested Visits Authorized [id number] Closed 07/09/2020 07/09/2021 1 1 Scheduling Instructions At [facility] ([facility]) ONLY. Please schedule as soon as possible within the next 24-48 hours. DING SPECIALIST Reason for Visit Appointment Request (Routine) - Closed Specialty Diagnoses / Procedures Referred By Contact Refer red To Contact Express or Urgent Care Referral ID Status Reason Start Date Expiration Date Visits Requ ested Visits Authorized [id number] Closed 07/09/2020 07/09/2021 1 1 Encounter Details Date Type Department Care Team Description 07/09/2020 Telemedicine [facility] Tammie Can Phar yngitis Acute Care at [facility] JOSEFA C.N.PBrittaney, (Primary Dx) [address] [place] M.S.NBrittaney [place], [place] [address] [place] [address] [place], [place] [phone] Social History Tobacco Use Types Packs/Day Years [...] How often do you attend confucianist or oriental orthodox More than 4 time [...] or coughing. ?? Use an alcohol-based hand police reserves commander if washing your hands with soap and [...] with your health care provider. ? 2013 [facility] ([facility]). All rights reserved. [id number] DING SPECIALIST documented in this encounter Progress Notes Tammie Snyder APRN, C.N.P., M.S.N. - 07/09/2020 11:20 AM CST CHIEF COMPLAINT Sore throat x 1 week Consult conducted via real-time audio/video technology by Tmamie Snyder APRN C.N.PBrittaney in [facility] patient in their home. Visit was [...] exposure however the patient does work in [employer] in [place]. She wears appropriate personal protective equipment while [...] strep swab to be completed at the [facility] via nurse only visit. Treat per protocol. If strep screen positive, a prescription for Penicillin V Potassium 500 mg PO, every 12 hours for 10days, tablet, will be sent to [facility] in [place]. Strep pharyngitis considered contagious until treated for [...] with primary care provider. Patient has a [facility] online portal account, can view medication list electronically. Ready to learn, no apparent learning barriers were identified; learning preferences include listening. Explained diagnosis and treatment plan; patient/child/caregiver expressed understanding of the content. DING SPECIALIST documented in this encounter Plan of Treatment Scheduled Referrals Name Type Priority Associated Diagnoses [facility] Outpatient Referral Routine Ex pected: visit (clinic) - 07/09/2020, [facility] Region; Expires: Swabs; Throat 07/09/2023 documented as of this encounter Visit Diagnoses Diagnosis Pharyngitis Acute - Primary documented in this encounter Additional Health Concerns Assessment Noted Time PHQ-9 Depression Total Score: 9 07/08/2020 3:59 PM BUILDING SPECIALIST documented as of this encounter Care Teams Duct Cleaner Relationship Specialty Start Date End Date Alberto Locke M.D. PCP - General Family Medicine 04/27/19 [address] [place] [address] documented as of this encounter
--- OUTSIDE RECORDS SUMMARY | 2022-07-17 08:04 | XMS_ITS | Encounter Summary ---
:1985 Author Organization [facility] Address [address] [place] [address] Care Team Providers Name Role Phone Alberto [...] How often do you attend yazidism or orthodox More than 4 time s [...] on filedocumented as of this encounter Results SARS-CoV-2 Total Antibody, Serum (03/12/2020 5:36 PM CDT) [facility] Method Time Signature SARS-CoV-2 Negative Negative [...] was performed using the Javy El ecsys [id number] Reagent assay from [employer], which has received Emergency Use Authori zation(EUA) by the U.S. Food and Drug Administration . Fact sheets for this Emergency Use Autho rization (EUA) assay can be found at the following link s: For Healthcare Providers: https://www.fda.gov/media/946056/downloa d For Patients: https://www.fda.gov/media/315956/downloa d Specimen Anatomical Collection Method Collection Time Receive d Time (Source) Location / / Volume Laterality Blood (Blood, 03/12/2020 5:36 PM 03/13/20 20 3:23 Venous) CDT PM CDT Covid Serology Testing Employer Based LAB MICROBIOLOGY - BLOOD ORDERABLES Performing Organization Address City/State/ZIP Code Phon e Number [facility]- [address] [place] [address] [phone] [facility] [place] [address] System in [address] documented in this encounter Visit Diagnoses Diagnosis Encounter For Screening For Other Viral Diseases (COVID-19) - Primary documented in this encounter Additional Health Concerns Assessment Noted Time PHQ-9 Depression Total Score: 11 03/05/2020 4:06 PM CD T documented as of this encounter Care Teams Property Assistant Relationship Specialty Start Date End Date Alberto Locke M.D. PCP - General Family Medicine 04/27/19 [address] [place] [phone] documented as of this encounter
--- OUTSIDE RECORDS SUMMARY | 2022-07-17 08:04 | XMS_ITS | Encounter Summary ---
:1985 Author Organization [facility] Address [address] [place] [address] Care Team Providers Name Role Phone Alberto Locke M.D. Primary Care Provider Reason for Referral Outpatient (Routine) - Closed Specialty Diagnoses / Procedures Referred By Contact Refer red To Contact Obstetrics and Diagnoses PAR Leonora Reaves, JOSEFA, MIGDALIAS [facility] Gynecology C.N.P. [address] [place] [phone] Referral ID Status Reason Start Date Expiration Date Visits Requ ested Visits Authorized [id number] Closed 07/24/2020 07/24/2021 1 1 Scheduling Instructions IUD insertion OPERATIVE MANAGER Reason for Visit Reason Comments Annual Exam Appointment Request (Routine) - Closed Specialty Diagnoses / Procedures Referred By Contact Refer red To Contact Obstetrics and Gynecology Referral ID Status Reason Start Date Expiration Date Visits Requ ested Visits Authorized [id number] Closed 07/24/2020 07/24/2021 1 1 Encounter Details Date Type Department Care Team Description 07/24/2020 Office Visit Department of Leonora Reaves Preventive G ynecological Exam (Primary Dx); Obstetrics and JOSEFA, C.N.P. Pap Smear Examination; Gynecology in [facility] [address] Migraine Headache; [facility] [place] Abuse Tobacco Smoking; 2 [facility] [phone] Body Mass Index 60.0 To 69.9 Adult (HCC) ; [facility] [place] [phone] Depression Olimpia r Recurrent ([facility]) [id number] (Work) [phone] Social History Tobacco Use Types Packs/Day Years [...] Comments Blood Pressure 144/76 07/24/2020 1:03 PM PERIOPERATIVE MANAGER Pulse - - Temperature - - Respiratory Rate - - Oxygen Saturation - - Inhaled Oxygen Concentration - - Weight 151 kg (332 lb 14.3 oz) 07/24/2020 1:03 PM PERIOPERATIVE MANAGER Height - - Body Mass Index [...] 3. Is due for a Pap smear SENIOR IT ASSISTANT HISTORY: Last Pap 2016 and was NIL. [...] SECTION; Surgeon: Xin De Leon M.D.; Location: [facility] OR ??? SECTION 04/12/2019 ??? ENDOSCOPIC RETROGRADE CHOLANGIOPANCREATOGRAPHY (ERCP) N/A 11/08/2017 Procedure: ENDOSCOPIC RETROGRADE CHOLANGIOPANCREATOGRAPHY; Surgeon: Rubio Baker M.D.; Location: [facility] OR ??? ESOPHAGOGASTRODUODENOSCOPY N/A 11/11/2017 Procedure: ESOPHAGOGASTRODUODENOSCOPY; Surgeon: Rubio Baker M.D.; Location: [facility] GI LAB ??? LAPAROSCOPIC APPENDECTOMY N/A 09/08/2017 Procedure: LAPAROSCOPIC APPENDECTOMY; Surgeon: Edd Moeller D.O.; Location: [facility] OR ??? LAPAROSCOPIC CHOLECYSTECTOMY WITH CHOLANGIOGRAM N/A 03/03/2018 Procedure: LAPAROSCOPIC CHOLECYSTECTOMY POSSIBLE CHOLANGIOGRAM; Surgeon: Edd Moeller D.O.; [facility] week Gets together: Once a week Attends worship service: More than 4 times per year [...] with logging foods in roque such as Hydrostor or something comparable, making small changes as [...] blood/lymph issues: Yes No urinary/reproductive issues: Yes OPERATIVE MANAGER documented in this encounter Plan of Treatment Scheduled Referrals Name Type Priority Associated Order Schedule Diagnoses Obstetrics and Outpatient Referral Routine Expect ed: Gynecology office 07/24/2020 visit (clinic) (Approximate) , Expires: 07/24/2023 documented as of this encounter Procedures Procedure Name Priority Date/Time Associated Diagnosis Comme nts THINPREP W/HPV Routine 07/24/2020 1:43 PM Pap Smear Results for this CO-TEST SCREEN PERIOPERATIVE MANAGER Examination procedure are in the results section. HPV WITH Routine 07/24/2020 1:43 PM Results f or this GENOTYPING, PCR, PERIOPERATIVE MANAGER procedure a re in THINPREP the results section. documented in this encounter Results HPV with Genotyping, PCR, ThinPrep (07/24/2020 1:43 PM PERIOPERATIVE MANAGER) [facility] gist Method Time Signature Specimen Thin Prep 07/29/2020 DTL Source Vial, 4:25 PM PERIOPERATIVE MANAGER Cervix/Endoc ervix HPV High Risk Negative Negative 07/29/2020 DTL type 16, PCR 4:25 PM PERIOPERATIVE MANAGER HPV High Risk Negative Negative 07/29/2020 DTL type 18, PCR 4:25 PM PERIOPERATIVE MANAGER HPV other Negative Negative 07/29/2020 DTL High Risk 4:25 PM PERIOPERATIVE MANAGER types, PCR Comment: The following Other High Risk HPV types were not detected: 31, 33, 35, 39, 45, 51, 52, 56, 58, 59, 66, and 68 This test was ordered in the context of a [facility] SENIOR IT ASSISTANT Cytology case; this result should be int erpreted within the context of the SENIOR IT ASSISTANT cytology report. Specimen Anatomical Collection Method Collection Time Receive d Time (Source) Location / / Volume Laterality Varies 07/24/2020 1:43 PM 0 PERIOPERATIVE MANAGER 10:27 AM PERIOPERATIVE MANAGER Leonora Reaves APRN, C.N.P. LAB MICROBIOLOGY - GENERAL O RDERABLES Performing Organization Address City/State/ZIP Code Phon e Number [facility] - [address] [place], [place] [address] [facility] [place] [address] Laboratories-[facility] [address] [facility] ThinPrep w/HPV Co-Test Screen (07/24/2020 1:43 PM PERIOPERATIVE MANAGER) Component Value Ref Test Analysis Performed Pathologis t Range Method Time At Signature 07/30/2020 ECLR 2:28 PM PERIOPERATIVE MANAGER Disclaimer High risk HPV testing, Real-Time Polymerase Chain Reac tion 07/30/2020 ECLR (PCR) was performed on the liquid-based cytology specimen 2:28 PM at [place], [place]. Report LISSETT Foley(ASCP) 07/30/2020 ECL R electronically I verify that I have examined all relevant slides/ma terials 2:28 PM signed by for the specimen(s) and rendered or confirmed the diagnosis. PERIOPERATIVE MANAGER Gross Description Received specimen 07/30/2020 ECL R in a ThinPrep 2:28 PM vial. PERIOPERATIVE MANAGER Pap Test Source Cervical/Endocervi 07/30/2020 ECLR huma 2:28 PM PERIOPERATIVE MANAGER Interpretation Cervical/Endocervical ??(ThinPrep): 07/30/2020 ECLR Satisfactory for Evaluation 2:28 PM Endocervical/transformation zone components absent PERIOPERATIVE MANAGER Negative for Intraepithelial Lesion or Malignancy [...] Laterality Varies 07/24/2020 1:43 PM 0 (Cervix/Endocerv PERIOPERATIVE MANAGER 10:27 AM CS T ix) Narrative This result has an attachment that is no t available. Leonora Reaves APRN, C.N.P. LAB PAP PATHDX ORDERABLES Performing Organization Address City/State/ZIP Code Phon e Number [facility]- [address] [place] [phone] [facility] [place] [address] System [address] documented in this encounter Visit Diagnoses Diagnosis Preventive Gynecological Exam - Primary Pap Smear Examination Migraine Headache Abuse Tobacco Smoking Body Mass Index 60.0 To 69.9 Adult (HCC) Depression Major Recurrent (HCC) documented in this encounter Additional Health Concerns Assessment Noted Time PHQ-9 Depression Total Score: 9 07/08/2020 3:59 PM PERIOPERATIVE MANAGER documented as of this encounter Care Teams Egg Crater Relationship Specialty Start Date End Date Alberto Locke M.D. PCP - General Family Medicine 04/27/19 [address] [place] [phone] documented as of this encounter
--- OUTSIDE RECORDS SUMMARY | 2022-07-17 08:04 | XMS_ITS | Encounter Summary ---
:1985 Author Organization [facility] Address [address] [place] [address] Care Team Providers Name Role Phone Alberto Locke M.D. Primary Care Provider Reason for Visit Reason Onset Date Comments Outpatient COVID-19 Testing 03/05/2020 Encounter Details Date Type Department Care Team Description 03/05/2020 External Outreach Department of Employer Based, [facility], Covid Serology Screening For Other [facility], in Testing Viral Di [place], [place] (COVID-19) (Primary [address] Dx) [place] [address] Social History Tobacco Use Types [...] How often do you attend congregational or church More than 4 time s [...] to pay for the very basics like RegisterPatientw hat hard 07/09/2020 food, housing, medical care, [...] Scrn, Blood Spot (03/05/2020 9:10 AM CDT) [facility] Method Time Signature SARS-CoV-2 Reactive (A) Negative 03/06/2020 [facility] IgG Emp Scrn, 3:24 PM CDT [...] Testing was performed using the EUROIMMU N Vjda-MEOR-TgU-2 DONALD (IgG). ??This test has received Emergency Use Authorization (EUA) by the U.S. Food and Drug Administration and is used per night time nanny's instructions, but it is modified from the night time nanny's instructions wit h a bridging study to include dried blood spot specimens. ? ? Performance characteristics were verifie d by [facility] in a manner consistent with CLIA require ments. Specimen Anatomical Collection Method Collection Time Receive d Time (Source) Location / / Volume Laterality Blood (Blood, 03/05/2020 9:10 AM 03/05/20 20 8:50 Venous) CDT PM CDT Covid Serology Testing Employer Based LAB MICROBIOLOGY - BLOOD ORDERABLES Performing Organization Address City/State/ZIP Code Phon e Number [facility] [address] [place], [place] [address] [place] [address] [place] [address] Laboratory Medicine and Pathology [address] [place] documented in this encounter Visit Diagnoses Diagnosis Encounter For Screening For Other Viral Diseases (COVID-19) - Primary documented in this encounter Additional Health Concerns Assessment Noted Time PHQ-9 Depression Total Score: 11 03/05/2020 4:06 PM CD T documented as of this encounter Care Teams Pediatric Psychologist Relationship Specialty Start Date End Date Alberto Locke M.D. PCP - General Family Medicine 04/27/19 [address] [place] [address] documented as of this encounter
--- OUTSIDE RECORDS SUMMARY | 2022-07-17 08:04 | XMS_ITS | Encounter Summary ---
:1985 Author Organization [facility] Address [address] [place] [address] Care Team Providers Name Role Phone Alberto Locke M.D. Primary Care Provider Reason for Visit Reason Comments Med Refill Encounter Details Date Type Department Care Team Description 05/05/2021 [place], Med [facility]ill [place] [facility] [address] [facility] 701 [place] [address] [place] [address] [phone] (Wo rk) Social History Tobacco Use Types [...] How often do you attend nondenominational or mosque More than 4 time s [...] Depression Total Score: 9 07/08/2020 3:59 PM SEARCH AND RESCUE OFFICER documented as of this encounter Care Teams Merchandise Flow Team Leader Relationship Specialty Start Date End Date Alberto Locke M.D. PCP - General Family Medicine 04/27/19 [address] [place] [phone] documented as of this encounter
--- OUTSIDE RECORDS SUMMARY | 2022-07-17 08:04 | XMS_ITS | Encounter Summary ---
:1985 Author Organization [facility] Address [address] [place] [address] Care Team Providers Name Role Phone Alberto Locke M.D. Primary Care Provider Encounter Details Date Type Department Care Team Description 04/14/2021 Hospital Encounter Department of Suzanne Almodovar Pain Knee Left Radiology in [place], P.ABrittaney-Marlyn [address] [phone] Social History Tobacco Use Types Packs/Day Years [...] How often do you attend restorationism or roman catholic More than 4 time [...] Suzanne Almodovar P.A.-C. IMG DIAGNOSTIC IMAGING PROCE SANDRINE documented in this encounter Visit Diagnoses Diagnosis Pain Knee Left documented in this encounter Additional Health Concerns Assessment Noted Time PHQ-9 Depression Total Score: 9 07/08/2020 3:59 PM MANUFACTURER documented as of this encounter Care Teams Quality Process Lead Relationship Specialty Start Date End Date Alberto Locke M.D. PCP - General Family Medicine 04/27/[address] [place] [phone] documented as of this encounter
--- OUTSIDE RECORDS SUMMARY | 2022-07-17 08:04 | XMS_ITS | Encounter Summary ---
:1985 Author Organization [facility] Address [address] [place] [address] Care Team Providers Name Role Phone Alberto Locke M.D. Primary Care Provider Encounter Details Date Type Department Care Team Description 05/01/2021 Clinical Communication Department of [facility] Alberto Fregoso M.D. [facility], [address], [facility] [phone] [place] [address] [place], [place] (Work) [phone] Social History Tobacco Use [...] How often do you attend adventist or worship More than 4 time s [...] to pay for the very basics like Qnovow hat hard 07/09/2020 food, housing, medical care, [...] the phone between 7 am-6 pm, Wednesday-Wednesday. [place]: [phone] [place]: [phone] [place]: [phone] [place]: [phone] [place]: [phone] [place]: [phone] [facility]: [phone] Stephen Noriega, [place], or [facility]: [phone] [place]:[phone] [place]: [phone] Thank you for trusting your health care to [facility]. documented in this encounter Plan of Treatment Not on filedocumented as of this encounter Visit Diagnoses Not on filedocumented in this encounter Additional Health Concerns Assessment Noted Time PHQ-9 Depression Total Score: 9 07/08/2020 3:59 PM TARIFF EXPERT documented as of this encounter Care Teams Piping Engineer Relationship Specialty Start Date End Date Alberto Locke M.D. PCP - General Family Medicine 04/27/19 [address] [place] [phone] documented as of this encounter
--- OUTSIDE RECORDS SUMMARY | 2022-07-17 08:04 | XMS_ITS | Encounter Summary ---
:1985 Author Organization [facility] Address [address] [place] [address] Care Team Providers Name Role Phone Alberto Locke M.D. Primary Care Provider Encounter Details Date Type Department Care Team Description 11/29/2020 Immunization Department of [facility] Ian Hays, Medicine, [place] M.DBrittaney Professional Building, in [address] [place], [place] [address] [address] [place] [address] [phone] Social History Tobacco Use Types Packs/Day Years [...] How often do you attend congregation or tenriism More than 4 time s [...] Depression Total Score: 9 07/08/2020 3:59 PM WAREHOUSE SUPERVISOR documented as of this encounter Care Teams Sql Architect Relationship Specialty Start Date End Date Alberto Locke M.D. PCP - General Family Medicine 04/27/19 [address] [place] [address] documented as of this encounter
--- OUTSIDE RECORDS SUMMARY | 2022-07-17 08:04 | XMS_ITS | Encounter Summary ---
:1985 Author Organization [facility] Address [address] [place] [address] Care Team Providers Name Role Phone Alberto Locke M.D. Primary Care Provider Encounter Details Date Type Department Care Team Description 07/08/2020 Admin Visit Department of Family Medicine, [facility] in [place], [place] [address] [place] [address] [facility] [phone] Social History Tobacco Use Types Packs/Day Years [...] How often do you attend uatsdin or mosque More than 4 time s [...] COVID19 Pending 07/08/2020 07/08/2020 07/09/2020 5:11 AM MIRROR MACHINE FEEDER Assessment Noted Time PHQ-9 Depression Total Score: 9 07/08/2020 3:59 PM MIRROR MACHINE FEEDER documented as of this encounter Care Teams Biomass Technician Relationship Specialty Start Date End Date Alberto Locke M.D. PCP - General Family Medicine 04/27/19 [address] [place] [phone] documented as of this encounter
--- OUTSIDE RECORDS SUMMARY | 2022-07-17 08:04 | XMS_ITS | Encounter Summary ---
:1985 Author Organization [facility] Address [address] [place] [address] Care Team Providers Name Role Phone Alberto Locke M.D. Primary Care Provider Reason for Referral Specialty Diagnoses / Procedures Referred By Contact Refer red To Contact Alberto Locke M.D. [facility] Region [address] [place] [phone] Referral ID Status Reason Start Date Expiration Date Visits Requ ested Visits Authorized H LIAISON OFFICER Encounter Details Date Type Department Care Team Description 07/15/[address] [facility] PCP [facility] Frankie Locke M.D. [address] [place], [place] [phone] (Wo rk) Social History [...] How often do you attend episcopalian or yazidi More than 4 time s [...] of this encounter Plan of Treatment Scheduled Referrals Name Type Priority Associated Order Schedule Diagnoses Covid immunization Outpatient Referral Routine Ex pected: office visit Booster 021 (Approximate), Expires: 07/15/2022 documented as of this encounter Visit Diagnoses Not on filedocumented in this encounter Additional Health Concerns Assessment Noted Time PHQ-9 Depression Total Score: 9 07/08/2020 3:59 PM YOUTH LIAISON OFFICER documented as of this encounter Care Teams Inspectors And Regulatory Officers Relationship Specialty Start Date End Date Alberto Locke M.D. PCP - General Family Medicine 04/27/19 [address] [place] [phone] documented as of this encounter
--- OUTSIDE RECORDS SUMMARY | 2022-07-17 08:04 | XMS_ITS | Encounter Summary ---
:1985 Author Organization [facility] Address [address] [place] [address] Care Team Providers Name Role Phone Alberto Locke M.D. Primary Care Provider Reason for Visit Reason Comments Sore Throat Shortness of Breath Encounter Details Date Type Department Care Team Description 05/19/2021 Emergency [place] [facility] Berny Garcia, Tonsi llitis Acute Department M.DBrittaney (Primary Dx) [address] [facility] [address] [place] [phone] (Wo rk) Social History Tobacco Use Types [...] How often do you attend presybeterian or hinduism More than 4 time s [...] cannot be sent through Care Everywhere. Tonsillitis (Yi)documented in this encounter Medications at Time of [...] Organization Address City/State/ZIP Code Phon e Number [facility]- [address] [place] [phone] [place] [address] System in [place] [address] [place] [address] (ABNORMAL) Comprehensive Metabolic Panel (05/19/2021 9:45 PM [...] CDT eGFR-Black/Afri >90 >=60 05/19/2021 [facility] can Stateless mL/min/BSA 10:20 PM CDT Comment: ----ADDITIONAL INFORMATION---- [...] Organization Address City/State/ZIP Code Phon e Number [facility]- [address] [facility] [place] [address] [place] [address] System in [place] [address] (ABNORMAL) CBC with Differential, Blood (05/19/2021 9:45 PM CDT) [facility] Method Time Signature Hemoglobin 14.0 [...] Laterality Blood (Blood, 05/19/2021 9:45 PM 05/19/20 21 9:58 Venous) CDT PM CDT Berny Garcia M.D. LAB BLOOD ADD-ON Performing Organization Address City/State/ZIP Code Phon e Number [facility]- [address] [place], [place] [address] [place] [address] System in [place] SARS Coronavirus-2 RNA, V (05/19/2021 [...] pe rformed using the Aptima SARS-CoV-2 assay ([employer] on the uMix.TVs tem under emergency use authorization (EUA) by the U.S. Food and Drug Administ ration. Fact sheets for this EUA assay can be fo und at the following links: For Healthcare Providers: https://www.KeTech a.gov/media/027469/download For Patients: https://www.fda.gov/media/ 156250/download Specimen Anatomical Collection Method Collection Time Receive d Time (Source) Location / / Volume Laterality Varies 05/19/2021 9:44 PM CDT 11:00 AM CDT Berny Garcia M.D. LAB MICROBIOLOGY - GENERAL O RDERABLES Performing Organization Address City/State/ZIP Code Phon e Number [facility]- [address] [place] [address] [phone] [facility] [place] [address] System in [address] Streptococcus Group A, Molecular Detection, PCR, [...] Organization Address City/State/ZIP Code Phon e Number [facility]- [address] [place], [place] [address] [place] [address] System in [place] [address] documented in this encounter Visit Diagnoses Diagnosis Tonsillitis Acute - Primary documented in this encounter Additional Health Concerns Infection Onset Date Last Indicated Resolved Time COVID19 Pending 05/19/2021 05/19/2021 05/19/2021 10:24 PM CDT COVID19 Pending 05/19/2021 05/19/2021 05/20/2021 3:13 PM CDT Assessment Noted Time PHQ-9 Depression Total Score: 9 07/08/2020 3:59 PM CASE MAKER documented as of this encounter Care Teams Street Light Cleaner Relationship Specialty Start Date End Date Alberto Locke M.D. PCP - General Family Medicine 04/27/19 [address] [place] [address] documented as of this encounter
--- OUTSIDE RECORDS SUMMARY | 2022-07-17 08:04 | XMS_ITS | Encounter Summary ---
:1985 Author Organization [facility] Address [address] [place] [address] Care Team Providers Name Role Phone Alberto Locke M.D. Primary Care Provider Reason for Visit Outpatient (Routine) - Closed Specialty Diagnoses / Procedures Referred By Contact Refer red To Contact Tammie Snyder APRN, C.NJud, M [facility] M.S.N. [address] [place] [phone] Referral ID Status Reason Start Date Expiration Date Visits Requ ested Visits Authorized [id number] Closed 07/09/2020 07/09/2021 1 1 Encounter Details Date Type Department Care Team Description 07/09/2020 Office Visit Urgent Care in [facility] Tammie Snyder APRN, C.NLebron., M.S.N. [address] [place] [phone] Pharyngitis [place], [place] Bree Burt L.PBrittaneyNBrittaney (Primary Dx) [address] [place] [address] Social History Tobacco Use Types [...] How often do you attend spiritism or episcopalian More than 4 time s [...] 07/09/2020 3:45 PM CST Strep test complete RECONCILIATOR documented in this encounter Miscellaneous Notes Result Encounter Note - Suzanne Almodovar P.A.-C. - 07/10/2020 12:53 PM BANK RECONCILIATOR Results were negative for strep. RECONCILIATOR documented in this encounter Plan of Treatment Not on filedocumented as of this encounter Procedures Procedure Name Priority Date/Time Associated Diagnosis Comme nts GROUP A STREP PCR, STAT 07/09/2020 4:04 PM Pharyngitis Acut e Results for this THROAT BANK RECONCILIATOR procedure are i n the results section. documented in this encounter Results Streptococcus Group A, Molecular Detection, PCR, Throat (07/09/2020 4:04 PM BANK RECONCILIATOR) P athologist Signature Group A Strep Negative Negative 07/09/2020 [facility] PCR, Throat 4:36 PM BANK RECONCILIATOR Specimen Anatomical Collection Method Collection Time Receive d Time (Source) Location / / Volume Laterality Varies (Throat) 07/09/2020 4:04 PM 2019 4:04 BANK RECONCILIATOR PM BANK RECONCILIATOR Erlin Link P.A.-C. LAB MICROBIOLOGY - GENERAL O RDERABLES Performing Organization Address City/State/ZIP Code Phon e Number [facility]- [address] [place], [place] [address] [place] [address] System in [place] [address] documented in this encounter Visit Diagnoses Diagnosis Pharyngitis Acute - Primary documented in this encounter Additional Health Concerns Assessment Noted Time PHQ-9 Depression Total Score: 9 07/08/2020 3:59 PM BANK RECONCILIATOR documented as of this encounter Care Teams Staple Fiber Washer Relationship Specialty Start Date End Date Alberto Locke M.D. PCP - General Family Medicine 04/27/19 [address] [place] [address] documented as of this encounter
--- OUTSIDE RECORDS SUMMARY | 2022-07-17 08:04 | XMS_ITS | Encounter Summary ---
:1985 Author Organization [facility] Address [address] [place] [address] Care Team Providers Name Role Phone Alberto Locke M.D. Primary Care Provider Reason for Referral Outpatient (Routine) - Closed Specialty Diagnoses / Procedures Referred By Contact Refer red To Contact Diagnoses Primary Osteoarthritis Knee Left Pain Knee Left Berny Robert [facility] [place] [facility] Procedures qta-knjb-tsdofxcs-elbow arthrocentesis: L knee joint M.D. [address] [place] [address] Referral ID Status Reason Start Date Expiration Date Visits Requ ested Visits Authorized [id number] Closed 04/23/2021 04/23/2022 1 1 Physical Therapy (Routine) - Closed Specialty Diagnoses / Procedures Referred By Contact Refer red To Contact Diagnoses Pain Knee Left Primary Osteoarthritis Knee Left Primary Osteoarthritis Knee Right Body Mass Index 60.0 To 69.9 Adult ([facility]) Berny Robert [facility] [place] [facility] Procedures PT Evaluate and treat M.D. [address] [place] [address] Referral ID Status Reason Start Date Expiration Date Visits Requ ested Visits Authorized [id number] Closed 04/23/2021 04/23/2022 1 1 Reason for Visit Outpatient (Routine) - Closed Specialty Diagnoses / Procedures Referred By Contact Refer red To Contact Orthopedic Surgery Diagnoses Pain Knee Left Suzanne Almodovar [facility]C. [facility] [place] [address] Referral ID Status Reason Start Date Expiration Date Visits Requ ested Visits Authorized [id number] Closed 04/14/2021 04/14/2022 1 1 Encounter Details Date Type Department Care Team Description 04/23/2021 Comprehensive Visit Department of Jakob, Primary Osteoarthritis Knee Left (Primary Dx); Orthopedic Surgery Malia Son Pain Knee Left; in [place] [facility] Primary Osteoarthritis Knee Right; [place], [place] Body Mass Index 60.0 To 69.9 Adult ([facility]) [address] [facility] [address] [place] [phone] [address] (Work) [phone] Social History Tobacco Use Types Packs/Day Years [...] M.D. - 04/23/2021 10:15 AM CDTAssociated Order(s): urr-nehn-gvvqzzzw-elbow arthrocentesis: L knee joint Post-Procedure Diagnose(s): Primary [...] SECTION; Surgeon: Xin De Leon M.D.; Location: [facility] OR ??? SECTION 04/12/2019 ??? ENDOSCOPIC RETROGRADE CHOLANGIOPANCREATOGRAPHY (ERCP) N/A 11/08/2017 Procedure: ENDOSCOPIC RETROGRADE CHOLANGIOPANCREATOGRAPHY; Surgeon: Rubio Baker M.D.; Location: [facility] OR ??? ESOPHAGOGASTRODUODENOSCOPY N/A 11/11/2017 Procedure: ESOPHAGOGASTRODUODENOSCOPY; Surgeon: Rubio Baker M.D.; Location: [facility] GI LAB ??? LAPAROSCOPIC APPENDECTOMY N/A 09/08/2017 Procedure: LAPAROSCOPIC APPENDECTOMY; Surgeon: Edd Moeller D.O.; Location: [facility] OR ??? LAPAROSCOPIC CHOLECYSTECTOMY WITH CHOLANGIOGRAM N/A 03/03/2018 Procedure: LAPAROSCOPIC CHOLECYSTECTOMY POSSIBLE CHOLANGIOGRAM; Surgeon: Edd Moeller D.O.; Location: [facility] OR ??? OTHER CONVERTED [...] Body Mass Index 60.0 To 69.9 Adult ([facility]) Discussed diagnosis and natural history of osteoarthritis. Both surgical and conservative treatment options were discussed today, and recommendation was made for conservative treatment consisting of activity modifications, weight loss, pain management with NSAIDs and/or Tylenol, and intermittent intra-articular corticosteroid or viscosupplementation injections. After discussion, patient was in agreement with plan.She is going to take nyky-wjx-jjzkdgl pain medications on an as-needed basis for pain control. She was provided with left knee intra- articular corticosteroid injection(s) in clinic today. She was also referred to formal physical therapy. She will return for follow-up on an as-needed basis. documented in this encounter Plan of Treatment Not on filedocumented as of this encounter Procedures Procedure Name Priority Date/Time Associated Diagnosis Comme nts DC ARTHCS ASP/INJ Routine 04/23/2021 10:41 Primary Osteoarthri tis Results for this MJR JT WO US AM CDT Knee Left procedure are in Pain Knee Left the results section. documented in this encounter Results DC ARTHCS ASP/INJ MJR JT WO US (04/23/2021 [...] area as need ed for comfort Berny Robert M.D. PROCEDURE/MINOR SURGICAL ORD ERABLES Performing [...] Depression Total Score: 9 07/08/2020 3:59 PM FLIGHT ENGINEER PERFORMANCE QUALIFIED documented as of this encounter Care Teams President Of The [place] Relationship Specialty Start Date End Date Alberto Locke M.D. PCP - General Family Medicine 04/27/19 [address] [place] [phone] documented as of this encounter
--- OUTSIDE RECORDS SUMMARY | 2022-07-17 08:04 | XMS_ITS | Encounter Summary ---
:1985 Author Organization [facility] Address [address] [place] [address] Care Team Providers Name Role Phone Alberto Locke M.D. Primary Care Provider Reason for Visit Reason Comments Urinary Tract Infection pt reports painful urination , urgency, and pressure Encounter Details Date Type Department Care Team Description 04/12/2021 Emergency [place] [facility] Berny Garcia Infabi garcia Urinary Tract Department Sera (Primary Dx) 701 [facility] [address] [place] [phone] (Wo rk) Social History Tobacco Use Types [...] How often do you attend alevism or mosque More than 4 time s [...] + Susc, Urine (04/12/2021 8:49 PM CDT) [facility] gist Method Time Signature Urine Culture [...] Code Phon e Number [facility]- [address] [place] [address] 16 510 [facility] [place] [address] System in [address] (ABNORMAL) Microscopic Automated (04/12/2021 8:49 PM [...] Code Phon e Number [facility]- [address] [facility] [place] [address] [address] [place] [address] System in [place] 701 [facility] (ABNORMAL) Urinalysis with Microscopic if Indicated (04/12/2021 [...] 8.0 04/12/2021 9:03 PM CDT RDW[facility] Specific [place] 1.022 1.001 - 1.035 04/12/2021 9:03 PM [...] Code Phon e Number [facility]- [address] [place], [place] [address] [address] [place] [address] System in [place] [address] documented in this encounter Visit Diagnoses Diagnosis Infection Urinary Tract - Primary documented in this encounter Additional Health Concerns Assessment Noted Time PHQ-9 Depression Total Score: 9 07/08/2020 3:59 PM WOOL HAT FLANGER documented as of this encounter Care Teams Spooler Relationship Specialty Start Date End Date Alberto Locke M.D. PCP - General Family Medicine 04/27/19 [address] [address] documented as of this encounter
--- OUTSIDE RECORDS SUMMARY | 2022-07-17 08:04 | XMS_ITS | Encounter Summary ---
:1985 Author Organization [facility] Address [address] [place] [address] Care Team Providers Name Role Phone Alberto Locke M.D. Primary Care Provider Reason for Referral Outpatient (Routine) - Closed Specialty Diagnoses / Procedures Referred By Contact Refer janell To Contact Orthopedic Surgery Diagnoses Pain Knee Left Suzanne Almodovar [facility] P.[facility].-C. [address] [place] [address] Referral ID Status Reason Start Date Expiration Date Visits Requ ested Visits Authorized [id number] Closed 04/14/2021 04/14/2022 1 1 Scheduling Instructions Ortho internal referral panel order, bobbi ging before Consult visit Reason for Visit Reason Comments Leg Pain Left Appointment Request (Routine) - Closed Specialty Diagnoses / Procedures Referred By Contact Refer janell To Contact Family Medicine Referral ID Status Reason Start Date Expiration Date Visits Requ ested Visits Authorized [id number] Closed 04/14/2021 04/14/2022 1 1 Encounter Details Date Type Department Care Team Description 04/14/2021 Office Visit Urgent Care in [facility] Suzanne Almodovar Pain Knee Left [place], [place] Nena, P.A.-C. (Primary Dx) 701 [facility] [address] [place] [phone] Social History Tobacco Use Types Packs/Day [...] How often do you attend anglican or worship More than 4 time s [...] biking or low impact water aerobics. ?? Itmf-xkz-gtodloh and prescription medications. Your health care provider may recommend hxur-mzb-ndleoen medications and prescribe medications to help with [...] with your health care provider. ? 2014 [facility] [employer] [facility] [employer] (MER). All rights reserved. [id number] documented in this encounter Progress Notes Suzanne [...] Depression Total Score: 9 07/08/2020 3:59 PM UNDER WATER ASSISTANT documented as of this encounter Care Teams Hot Dip Galvanizer Relationship Specialty Start Date End Date Alberto Locke M.D. PCP - General Family Medicine 04/27/19 [place] [phone] documented as of this encounter
--- OUTSIDE RECORDS SUMMARY | 2022-07-17 08:04 | XMS_ITS | Encounter Summary ---
:1985 Author Organization [facility] Address [address] [place] [address] Care Team Providers Name Role Phone Alberto Locke M.D. Primary Care Provider Reason for Visit Reason Comments Immunizations flu Encounter Details Date Type Department Care Team Description 07/11/2021 Clinical Support Department of Pediatrics Sa griffin Baxter, in [facility] L.P.N. [address] [facility] [address] [place] [address] [place], [place] [phone] Social History Tobacco Use Types Packs/Day [...] How often do you attend yazidi or amish More than 4 time s [...] Depression Total Score: 9 07/08/2020 3:59 PM ROTARY SAW OPERATOR documented as of this encounter Care Teams Activity Therapist Relationship Specialty Start Date End Date Alberto Locke M.D. PCP - General Family Medicine 04/27/19 [address] [place] [phone] documented as of this encounter
--- OUTSIDE RECORDS SUMMARY | 2022-07-17 08:04 | XMS_ITS | Encounter Summary ---
:1985 Author Organization [facility] Address [address] [place] [address] Care Team Providers Name Role Phone Alberto Locke M.D. Primary Care Provider Encounter Details Date Type Department Care Team Description 07/08/2020 Clinical Communication Department of [facility] Alberto Fregoso M.D. [address], [facility] [address] 5 [facility] [phone] [place], [place] (Work) [phone] Social History Tobacco Use [...] How often do you attend adventism or episcopal More than 4 time s [...] not improve. Thank you for the information [employer] Telephone Encounter - Venu Collins P.A.-C. - 07/08/2020 11:29 AM SUPERVISOR DRAPERY HANGING Currently only COVID swabs can be performed at the testing site. This may change in the future. [employer] Telephone Encounter - Karey Carballo L.P.N. - 07/08/2020 11:20 AM SUPERVISOR DRAPERY HANGING I believe just covid test are done at the [facility] site? Will ask Venu [employer]ISOR DRAPERY HANGING Telephone Encounter - Cristine Ramesh - 07/08/2020 [...] Thanks Name of Medication (if relevant): N/A RVISOR DRAPERY HANGING documented in this encounter Plan of Treatment Not on filedocumented as of this encounter Visit Diagnoses Not on filedocumented in this encounter Additional Health Concerns Infection Onset Date Last Indicated Resolved Time COVID19 Pending 07/08/2020 07/08/2020 07/09/2020 5:11 AM SUPERVISOR DRAPERY HANGING Assessment Noted Time PHQ-9 Depression Total Score: 9 07/08/2020 3:59 PM SUPERVISOR DRAPERY HANGING documented as of this encounter Care Teams Laboratory Coordinator Relationship Specialty Start Date End Date Alberto Locke M.D. PCP - General Family Medicine 04/27/19 [address] [place] [address] documented as of this encounter
--- OUTSIDE RECORDS SUMMARY | 2022-07-17 08:04 | XMS_ITS | Encounter Summary ---
:1985 Author Organization [facility] Address [address] [place] [address] Care Team Providers Name Role Phone Alberto Locke M.D. Primary Care Provider Reason for Visit Reason Onset Date Comments Outpatient COVID-19 Testing 07/08/2020 Encounter Details Date Type Department Care Team Description 07/08/2020 External Outreach Department of Yamel Sandoval Infection Upper Medicine, [place] [facility] (Primary Clinic, in [place], [address] Dx) [place], [place] [address] [address] [place], [place] [phone] [address] (Work) [phone] Social History Tobacco Use Types Packs/Day Years [...] How often do you attend baptism or sikh More than 4 time s [...] Encounter created for the drive-through COVID-19 testing. GER OF TIRES SALES documented in this encounter Plan of Treatment Not on filedocumented as of this encounter Procedures Procedure Name Priority Date/Time Associated Diagnosis Comme nts SARS CORONAVIRUS-2 Routine 07/08/2020 1:34 PM Infection Upper Results for this RNA, V MANAGER OF TIRES SALES Respiratory procedure are i n the results section. documented in this encounter Results SARS Coronavirus-2 RNA, V Symptomatic (07/08/2020 1:34 PM MANAGER OF TIRES SALES) [facility] Method Time Signature SARS-CoV-2 Swab, 07/09/2020 ECLR Specimen Nasopharynx 5:11 AM MANAGER OF TIRES SALES Source SARS CoV-2 Undetected Undetected 07/09/2020 ECLR RNA, TMA 5:11 AM MANAGER OF TIRES SALES Comment: SARS-CoV-2 RNA absent. This result does not rule out COVID-19 in the patient, as the sensitivity of the test depends o n the timing of the specimen collection and the quality of the specim en. Result should be correlated with patient's history and clinical presentat ion. ----ADDITIONAL INFORMATION---- This test is performed using the Aptima SARS-CoV-2 assay ([employer] which has received Emergency Use Authori zation (EUA) by the U.S. Food and Drug Administration. Fact sheets for this Emergency Use Autho rization (EUA) assay can be found at the following links: For Healthcare Providers: https://www.fd a.gov/media/852528/download For Patients: https://www.fda.gov/media/ 052482/download Specimen Anatomical Collection Method Collection Time Receive d Time (Source) Location / / Volume Laterality Varies 07/08/2020 1:34 PM 0 9:39 (Nasopharynx) MANAGER OF TIRES SALES PM MANAGER OF TIRES SALES Venu Collins P.A.-C. LAB MICROBIOLOGY - GENERAL O RDERABLES Performing Organization Address City/State/ZIP Code Phon e Number [facility]- [address] [place] [address] [phone] [facility] [place] [address] System [address] documented in this encounter Visit Diagnoses Diagnosis Infection Upper Respiratory - Primary documented in this encounter Additional Health Concerns Infection Onset Date Last Indicated Resolved Time COVID19 Pending 07/08/2020 07/08/2020 07/09/2020 5:11 AM MANAGER OF TIRES SALES Assessment Noted Time PHQ-9 Depression Total Score: 9 07/08/2020 3:59 PM MANAGER OF TIRES SALES documented as of this encounter Care Teams Chemical Production Engineer Relationship Specialty Start Date End Date Alberto Locke M.D. PCP - General Family Medicine 04/27/19 [address] [place] [phone] documented as of this encounter
--- OUTSIDE RECORDS SUMMARY | 2022-07-17 08:05 | XMS_ITS | Encounter Summary ---
:1985 Author Organization [facility] Address [address] [place] [address] Care Team Providers Name Role Phone Alberto Locke M.D. Primary Care Provider Reason for Visit Reason Comments Leg Pain lower right leg,red,swollen, ,alittle painful,for few weeks Outpatient (Routine) - Closed Specialty Diagnoses / Procedures Referred By Contact Refer red To Contact Family Medicine Alberto Locke M.D. [address] [phone] Referral ID Status Reason Start Date Expiration Date Visits Requ ested Visits Authorized [id number] Closed 12/06/2019 12/05/2020 1 1 Encounter Details Date Type Department Care Team Description 12/06/2019 Office Visit Department of Alberto Campbell M.D. [address] [place] [phone] Pain Lower Leg Right (Primary Dx); Medicine, [place] Nuno Beck M.D. [address] [place] [phone] Swelling Leg Right; Clinic, in [place], Pain Ne ck; [place] Depression Major Recurrent ( HCC); [address] [place] [address] Body Mass Index 50.0 To 59.9 Adult (HCC); [place] [address] Social History Tobacco [...] How often do you attend quaker or baptist More than 4 time s [...] symptoms she should be seen in a vhyf-tf-fwsuemmmo to rule out DVT. No fever, chills, [...] of these at a local store or [employer] 2. Episodic neck pain with radiation down [...] calm down and physical therapy is seenpeople qxxc-cq-hxsm and then can request a referral at [...] on filedocumented as of this encounter Results US Lower [...] documented as of this encounter Care Teams Radio/Tv Technician Relationship Specialty Start Date End Date Alberto Locke M.D. PCP - General Family Medicine 04/27/19 [address] [place] [phone] documented as of this encounter
--- OUTSIDE RECORDS SUMMARY | 2022-07-17 08:05 | XMS_ITS | Encounter Summary ---
:[address] [facility] Address [address] [place] [address] Care Team Providers Name Role Phone Alberto Locke M.D. Primary Care Provider Encounter Details Date Type Department Care Team Description 04/25/2019 Orders Only Department of Family Alberto Locke M.D. Medicine, [facility], [address] [facility] [place] [address] [place] [address] [place] [address] [phone] Social History Tobacco Use Types Packs/Day Years [...] often do you attend roman catholic or christianity More than 4 time s [...] as of this encounter Care Teams New Client Banking Services Clerk Relationship Specialty Start Date End Date Alberto Locke M.D. PCP - General Family Medicine 04/27/19 [address] [place] [phone] documented as of this encounter
--- OUTSIDE RECORDS SUMMARY | 2022-07-17 08:05 | XMS_ITS | Encounter Summary ---
:1985 Author Organization [facility] Address [address] [place] [address] Care Team Providers Name Role Phone Alberto Locke M.D. Primary Care Provider Reason for Visit Reason Comments COVID Nurse Line Encounter Details Date Type Department Care Team Description 12/06/2019 Clinical Communication Division of Emerita Pereira Nurse Line [facility] L, R.N. [facility] [address] [place] [address] [place] [phone] 200 [facility] (Work) [place] [address] Social History Tobacco Use Types Packs/Day Years [...] How often do you attend restoration or evangelical More than 4 time s [...] and water aren't available, use a hand template checker that contains at least 60% alcohol. Avoid [...] essential items or medical care). Educational Resource: https://www.cdc.gov/coronavirus/2019-ncov/nrcubcw-vysziof-hlzu/index.html Education: patient/caregiver Patient/caregiver able to teach back Patient agreeable to plan of care: Yes The following references were used: [facility] novel coronavirus (COVID- 19) resources documented in this encounter Plan of Treatment Not on filedocumented as of this encounter Visit Diagnoses Not on filedocumented in this encounter Additional Health Concerns Assessment Noted Time PHQ-9 Depression Total Score: 6 12/06/2019 10:58 AM CD T documented as of this encounter Care Teams Buying Agent Relationship Specialty Start Date End Date Alberto Locke M.D. PCP - General Family Medicine 04/27/19 [address] [place] [phone] documented as of this encounter
--- OUTSIDE RECORDS SUMMARY | 2022-07-17 08:05 | XMS_ITS | Encounter Summary ---
:1985 Author Organization [facility] Address [address] [place] [address] Care Team Providers Name Role Phone Alberto Locke M.D. Primary Care Provider Reason for Visit Reason Comments Follow-up Outpatient (Routine) - Closed Specialty Diagnoses / Procedures Referred By Contact Refer red To Contact Family Medicine Alberto Locke M.D. [facility] [address] [place] [phone] Referral ID Status Reason Start Date Expiration Date Visits Requ ested Visits Authorized [id number] Closed 12/06/2019 12/05/2020 1 1 Encounter Details Date Type Department Care Team Description 03/05/2020 Office Visit Department of Family Alberto Locke M.D. Depression Major Recurrent (HCC) (Primar y Dx); [facility], [address] Hypertension Essential Primary Clinic, in [facility] [phone] [place] [address] [place], [place] (Work) [phone] Social History Tobacco Use [...] How often do you attend islam or adventism More than 4 time s [...] Body Mass Index 50.0 To 59.9 Adult ([facility]) ??? Abuse Tobacco Smoking ??? Migraine Headache ??? Apnea Sleep Obstructive ??? Gastroesophageal Reflux Disease NOS ??? Attention Deficit With Hyperactivity Disorder ??? Depression Major Recurrent ([facility]) Current Outpatient Medications Medication Sig ??? acetaminophen [...] week Gets together: Once a week Attends adventism service: 1 to 4 times per year [...] SECTION; Surgeon: Xin De Leon M.D.; Location: [facility] OR ??? SECTION 04/12/2019 ??? ENDOSCOPIC RETROGRADE CHOLANGIOPANCREATOGRAPHY (ERCP) N/A 11/08/2017 Procedure: ENDOSCOPIC RETROGRADE CHOLANGIOPANCREATOGRAPHY; Surgeon: Rubio Baker M.D.; Location: [facility] OR ??? ESOPHAGOGASTRODUODENOSCOPY N/A 11/11/2017 Procedure: ESOPHAGOGASTRODUODENOSCOPY; Surgeon: Rubio Baker M.D.; Location: [facility] GI LAB ??? LAPAROSCOPIC APPENDECTOMY N/A 09/08/2017 Procedure: LAPAROSCOPIC APPENDECTOMY; Surgeon: Edd Moeller D.O.; Location: [facility] OR ??? LAPAROSCOPIC CHOLECYSTECTOMY WITH CHOLANGIOGRAM N/A 03/03/2018 Procedure: LAPAROSCOPIC CHOLECYSTECTOMY POSSIBLE CHOLANGIOGRAM; Surgeon: Edd Moeller D.O.; Location: [facility] OR ??? OTHER CONVERTED SHX (SEE [...] documented as of this encounter Care Teams Ip Paralegal Relationship Specialty Start Date End Date Alberto Locke M.D. PCP - General Family Medicine 04/27/19 [address] [place] [phone] documented as of this encounter
--- OUTSIDE RECORDS SUMMARY | 2022-07-17 08:05 | XMS_ITS | Encounter Summary ---
:1985 Author Organization [facility] Address [address] [place] [address] Care Team Providers Name Role Phone Alberto Locke M.D. Primary Care Provider Reason for Referral Outpatient (Routine) - Closed Specialty Diagnoses / Procedures Referred By Contact Refer red To Contact Family Medicine Alberto Locke M.D. [address] [phone] Referral ID Status Reason Start Date Expiration Date Visits Requ ested Visits Authorized [id number] Closed 04/27/2019 04/26/2020 1 1 Scheduling Instructions Depression, anemia Reason for Visit Reason Comments Establish Care Anemia post Encounter Details Date Type Department Care Team Description 04/27/2019 Comprehensive Visit Department of Alberto Locke Anemia (HCC) (Primary Dx); Family [facility]era Other Hypotension; [facility], in [address] [place] [address] lvd Abuse Tobacco Smoking; [place], [place] Body Mass Index 50.0 To 59.9 Adult ([facility]); [address] [place] [phone] Depression Major Recurrent ([facility]) [place], [place] [phone] (Work) [phone] Social History Tobacco Use Types Packs/Day Years [...] How often do you attend hindu or shinto More than 4 time s [...] She will discus permanent sterilization at upcoming HEADING AND PRIMING OPERATOR follow up. Patient Active Problem List Diagnosis ??? Body Mass Index 50.0 To 59.9 Adult ([facility]) ??? Abuse Tobacco Smoking ??? Migraine Headache ??? Apnea Sleep Obstructive ??? Gastroesophageal Reflux Disease NOS ??? Attention Deficit With Hyperactivity Disorder ??? Depression Major Recurrent ([facility]) ??? Section Delivery ([facility]) Current Outpatient Medications Medication Sig [...] together: Once a week Attends shinto service: 1 to 4 times per year [...] SECTION; Surgeon: Xin De Leon M.D.; Location: [facility] OR ??? ENDOSCOPIC RETROGRADE CHOLANGIOPANCREATOGRAPHY (ERCP) N/A 11/08/2017 Procedure: ENDOSCOPIC RETROGRADE CHOLANGIOPANCREATOGRAPHY; Surgeon: Rubio Baker M.D.; Location: [facility] OR ??? ESOPHAGOGASTRODUODENOSCOPY N/A 11/11/2017 Procedure: ESOPHAGOGASTRODUODENOSCOPY; Surgeon: Rubio Baker M.D.; Location: [facility] GI LAB ??? LAPAROSCOPIC APPENDECTOMY N/A 09/08/2017 Procedure: LAPAROSCOPIC APPENDECTOMY; Surgeon: Edd Moeller D.O.; Location: [facility] OR ??? LAPAROSCOPIC CHOLECYSTECTOMY WITH CHOLANGIOGRAM N/A 03/03/2018 Procedure: LAPAROSCOPIC CHOLECYSTECTOMY POSSIBLE CHOLANGIOGRAM; Surgeon: Edd Moeller D.O.; Location: [facility] OR ??? OTHER CONVERTED SHX [...] She will discuss weight loss meds with DIGITAL COMPUTER OPERATOR #5 Depression Major Recurrent (HCC) I will [...] Name Type Priority Associated Diagnoses Order S [facility] Outpatient Referral Routine Expec pipe: office [...] e Number [facility]- [address] [place] [address] [facility] [place] [address] System in [place] [address] documented in this encounter Visit Diagnoses Diagnosis Anemia (HCC) - Prim shonna Other Hypotension Abuse Tobacco Smoking Body Mass Index 50.0 To 59.9 Adult (HCC) Depression Major Recurrent (HCC) documented in this encounter Additional Health Concerns Assessment Noted Time PHQ-9 Depression Total Score: 7 04/07/2017 9:39 AM CDT documented as of this encounter Care Teams Training And Quality Manager Relationship Specialty Start Date End Date Alberto Locke M.D. PCP - General Family Medicine 04/27/19 [address] [place] [address] documented as of this encounter
--- OUTSIDE RECORDS SUMMARY | 2022-07-17 08:05 | XMS_ITS | Encounter Summary ---
:1985 Author Organization [facility] Address [address] [place] [address] Care Team Providers Name Role Phone Alberto Locke M.D. Primary Care Provider Encounter Details Date Type Department Care Team Description 10/17/2019 Orders Only Department of Pediatrics in [facility] cynthia [place], [place] P.A.-C. [address] [facility] [address] [place] [address] [place] [phone] (Wo rk) Social History Tobacco Use Types [...] How often do you attend restoration or lutheran More than 4 time s [...] documented as of this encounter Care Teams Saw Edge Fuser Circular Relationship Specialty Start Date End Date Alberto Locke M.D. PCP - General Family Medicine 04/27/19 [address] [place] [address] documented as of this encounter
--- OUTSIDE RECORDS SUMMARY | 2022-07-17 08:05 | XMS_ITS | Encounter Summary ---
:1985 Author Organization [facility] Address [address] [place] [address] Care Team Providers Name Role Phone Alberto Locke M.D. Primary Care Provider Encounter Details Date Type Department Care Team Description 06/16/2019 Clinical Communication Department of Alberto Roberts M.D. [address], [facility] [phone] [place] [address] [place], [place] (Work) [phone] Social History Tobacco Use [...] How often do you attend synagogue or anabaptism More than 4 time s [...] Jayshree HAWKINS. Please return her call at [phone]. documented in this encounter Plan of Treatment Not on filedocumented as of this encounter Visit Diagnoses Not on filedocumented in this encounter Additional Health Concerns Assessment Noted Time PHQ-9 Depression Total Score: 3 05/30/2019 10:59 AM CD T documented as of this encounter Care Teams Director Education Relationship Specialty Start Date End Date Alberto Locke M.D. PCP - General Family Medicine 04/27/19 [address] [id number] documented as of this encounter
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
--- OUTSIDE RECORDS SUMMARY | 2022-07-17 08:05 | XMS_ITS | Encounter Summary ---
:1985 Author Organization [facility] Address [address] [place] [address] Care Team Providers Name Role Phone Alberto Locke M.D. Primary Care Provider Reason for Visit Reason Comments Care 6 week check Outpatient (Routine) - Closed Specialty Diagnoses / Procedures Referred By Contact Refer red To Contact Obstetrics and Diagnoses Section Delivery (HCC) Harleen Josue D.O. [facility] Gynecology [address] [place] [phone] Referral ID Status Reason Start Date Expiration Date Visits Requ ested Visits Authorized [id number] Closed 04/15/2019 04/14/2020 1 1 Encounter Details Date Type Department Care Team Description 05/30/2019 Office Visit Department of Leonora Reaves, Care Postpar fercho ([facility]) (Primary Dx); Obstetrics and VALIDATION ARCHITECT, C.N.P. Section Delivery ([facility]); Gynecology in [address] [place] [address] [address] [place], [place] [phone] [address] (Work) [phone] Social History Tobacco Use Types Packs/Day Years [...] in this encounter Progress Notes Leonora Reaves, VALIDATION ARCHITECT, C.N.P. - 05/30/2019 11:00 AM CDT SUBJECTIVE [...] SECTION; Surgeon: Xin De Leon M.D.; Location: [facility] OR ??? ENDOSCOPIC RETROGRADE CHOLANGIOPANCREATOGRAPHY (ERCP) N/A 11/08/2017 Procedure: ENDOSCOPIC RETROGRADE CHOLANGIOPANCREATOGRAPHY; Surgeon: Rubio Baker M.D.; Location: [facility] OR ??? ESOPHAGOGASTRODUODENOSCOPY N/A 11/11/2017 Procedure: ESOPHAGOGASTRODUODENOSCOPY; Surgeon: Rubio Baker M.D.; Location: [facility] GI LAB ??? LAPAROSCOPIC APPENDECTOMY N/A 09/08/2017 Procedure: LAPAROSCOPIC APPENDECTOMY; Surgeon: Edd Moeller D.O.; Location: [facility] OR ??? LAPAROSCOPIC CHOLECYSTECTOMY WITH CHOLANGIOGRAM N/A 03/03/2018 Procedure: LAPAROSCOPIC CHOLECYSTECTOMY POSSIBLE CHOLANGIOGRAM; Surgeon: Edd Moeller D.O.; Location: [facility] OR ??? OTHER CONVERTED SHX (SEE [...] this time. Consult placed to [facility] SALES AND SERVICE REPRESENTATIVE #2 Section Delivery (HCC) Mackenzie type rash [...] as of this encounter Care Teams Inspector Receiving Relationship Specialty Start Date End Date Alberto Locke M.D. PCP - General Family Medicine 04/27/19 [address] [place] [phone] documented as of this encounter
--- OUTSIDE RECORDS SUMMARY | 2022-07-17 08:05 | XMS_ITS | Encounter Summary ---
:1985 Author Organization [facility] Address [address] [place] [address] Care Team Providers Name Role Phone Alberto Locke M.D. Primary Care Provider Reason for Referral Outpatient (Routine) - Closed Specialty Diagnoses / Procedures Referred By Contact Refer red To Contact Family [facility] Hercules [facility].D. [facility] [address] [phone] Referral ID Status Reason Start Date Expiration Date Visits Requ ested Visits Authorized [id number] Closed 05/31/2019 05/30/2020 1 1 Scheduling Instructions Dep Reason for Visit Reason Comments Care Recheck anemia Outpatient (Routine) - Closed Specialty Diagnoses / Procedures Referred By Contact Refer red To Contact Family Alberto Hercules M.D. [address] [phone] Referral ID Status Reason Start Date Expiration Date Visits Requ ested Visits Authorized [id number] Closed 04/27/2019 04/26/2020 1 1 Encounter Details Date Type Department Care Team Description 05/31/2019 Office Visit Department of Alberto Campbell M.D. Anemia (HCC) (Prima ry Dx); [address] Depression Major Recurrent (HCC) Clinic, in [facility] [phone] [address] [facility] [phone] [place], [place] (Work) [phone] Social History Tobacco Use [...] How often do you attend jew or anabaptism More than 4 time s [...] Body Mass Index 50.0 To 59.9 Adult ([facility]) ??? Abuse Tobacco Smoking ??? Migraine Headache ??? Apnea Sleep Obstructive ??? Gastroesophageal Reflux Disease NOS ??? Attention Deficit With Hyperactivity Disorder ??? Depression Major Recurrent ([facility]) ??? Section Delivery ([facility]) ??? Anemia ([facility]) Current Outpatient Medications Medication Sig ??? [...] week Gets together: Once a week Attends anabaptism service: 1 to 4 times per year [...] SECTION; Surgeon: Xin De Leon M.D.; Location: [facility] OR ??? ENDOSCOPIC RETROGRADE CHOLANGIOPANCREATOGRAPHY (ERCP) N/A 11/08/2017 Procedure: ENDOSCOPIC RETROGRADE CHOLANGIOPANCREATOGRAPHY; Surgeon: Rubio Baker M.D.; Location: [facility] OR ??? ESOPHAGOGASTRODUODENOSCOPY N/A 11/11/2017 Procedure: ESOPHAGOGASTRODUODENOSCOPY; Surgeon: Rubio Baker M.D.; Location: [facility] GI LAB ??? LAPAROSCOPIC APPENDECTOMY N/A 09/08/2017 Procedure: LAPAROSCOPIC APPENDECTOMY; Surgeon: Edd Moeller D.O.; Location: [facility] OR ??? LAPAROSCOPIC CHOLECYSTECTOMY WITH CHOLANGIOGRAM N/A 03/03/2018 Procedure: LAPAROSCOPIC CHOLECYSTECTOMY POSSIBLE CHOLANGIOGRAM; Surgeon: Edd Moeller D.O.; Location: [facility] OR ??? OTHER CONVERTED SHX [...] visit (clinic) Nov 30, 2019 (Approximate) Region: [facility] Provider needed?: Self Visit length: Long Visit type: General Dep documented in this encounter Plan of Treatment Scheduled Referrals Name Type Priority Associated Diagnoses Order [facility] Family Medicine Outpatient Referral Routine Expec pipe: office visit 11/30/2019 (clinic) (Approximate), Expires: 05/31/2022 documented as of this encounter Visit Diagnoses Diagnosis Anemia (HCC) - Prim shonna Depression Major Recurrent (HCC) documented in this encounter Additional Health Concerns Assessment Noted Time PHQ-9 Depression Total Score: 3 05/30/2019 10:59 AM CD T documented as of this encounter Care Teams Website Optimization Strategist Relationship Specialty Start Date End Date Alberto Locke M.D. PCP - General Family Medicine 04/27/19 [address] [place] [address] documented as of this encounter
--- OUTSIDE RECORDS SUMMARY | 2022-07-17 08:05 | XMS_ITS | Encounter Summary ---
:1985 Author Organization [facility] Address [address] [place] [address] Care Team Providers Name Role Phone Blaire Bundy P.A.-C. Primary Care Provider [phone] Reason for Visit Reason Comments Post-op Visit Outpatient (Routine) - Closed Specialty Diagnoses / Procedures Referred By Contact Refer red To Contact Obstetrics and Diagnoses PAR Melany Montoya [facility] Gynecology SET UP MECHANIC COATING MACHINES, CHRISTOPH, M.S.N., B.S.N., R.N. [address] [place] [address] Referral ID Status Reason Start Date Expiration Date Visits Requ ested Visits Authorized [id number] Closed 04/19/2019 04/18/2020 1 1 Encounter Details Date Type Department Care Team Description 04/20/2019 Office Visit Department of Melany Montoya, S ection Obstetrics and JOSEFA, CHRISTOPH, Delivery ([facility] ) Gynecology in [facility] M.S.N., B.S.N., (Primar y Dx) [place], [place] R.N. [address] [facility] [address] [place] [address] Social History Tobacco Use [...] which is increasing. Asked to have Dr Locek check it next week when she sees [...] documented as of this encounter Care Teams Top Dyeing Machine Loader Relationship Specialty Start Date End Date Blaire Bundy P.A.-C. PCP - General 02/04/17 04/26/19 documented as of this encounter
--- OUTSIDE RECORDS SUMMARY | 2022-07-17 08:05 | XMS_ITS | Encounter Summary ---
:1985 Author Organization [facility] Address [address] [place] [address] Care Team Providers Name Role Phone Alberto Locke M.D. Primary Care Provider Encounter Details Date Type Department Care Team Description 05/31/2019 Hospital Encounter Department of Alberto Locke Anemia P regnancy Laboratory Medicine M.Kelly (HCC) in [address] [address] [place], [place] [phone] [address] (Work) [phone] Social History Tobacco Use Types Packs/Day Years [...] to pay for the very basics like [employer] hat hard 07/09/2020 food, housing, medical care, [...] Code Phon e Number [facility] [address] [place] [address] [place] [address] System in [place] [address] documented in this encounter Visit Diagnoses Diagnosis Anemia (HCC) documented in this encounter Additional Health Concerns Assessment Noted Time PHQ-9 Depression Total Score: 3 05/30/2019 10:59 AM CD T documented as of this encounter Care Teams Instructional Resource Teacher Relationship Specialty Start Date End Date Alberto Locke M.D. PCP - General Family Medicine 04/27/19 [address] [place] [phone] documented as of this encounter
--- OUTSIDE RECORDS SUMMARY | 2022-07-17 08:05 | XMS_ITS | Encounter Summary ---
:1985 Author Organization [facility] Address [address] [place] [address] Care Team Providers Name Role Phone Alberto Locke M.D. Primary Care Provider Reason for Referral Outpatient (Routine) - Closed Specialty Diagnoses / Procedures Referred By Contact Refer red To Contact Family Alberto Hercules M.D. [facility] [address] [phone] Referral ID Status Reason Start Date Expiration Date Visits Requ ested Visits Authorized [id number] Closed 12/06/2019 12/05/2020 1 1 Scheduling Instructions Face to face or virtual depending on COV ID restrictions at that time ehavioral Health (Routine) - Closed Specialty Diagnoses / Procedures Referred By Contact Refer red To Contact Psychiatry / Psychiatry Diagnoses Depression Major Recurrent (HCC) Alberto Locke M.D. [facility] [address] [place] [phone] Referral ID Status Reason Start Date Expiration Date Visits Requ ested Visits Authorized [id number] Closed 12/06/2019 12/05/2020 1 1 utpatient (Routine) - Closed Specialty Diagnoses / Procedures Referred By Contact Refer red To Contact Family Alberto Hercules M.D. [facility] [address] [phone] Referral ID Status Reason Start Date Expiration Date Visits Requ ested Visits Authorized [id number] Closed 12/06/2019 12/05/2020 1 1 Scheduling Instructions Face to face family med but must do COVI D triage clearance first Reason for Visit Reason Comments Follow-up ? lab -hgb Outpatient (Routine) - Closed Specialty Diagnoses / Procedures Referred By Contact Refer red To Contact Family Medicine Alberto Locke M.D. [facility] Region [address] [place] [address] Referral ID Status Reason Start Date Expiration Date Visits Requ ested Visits Authorized [id number] Closed 05/31/2019 05/30/2020 1 1 Encounter Details Date Type Department Care Team Description 12/06/2019 Virtual Visit Department of Alberto Campbell M.D. Depression Major Recurrent (HCC) (Primar y Dx); Medicine, [address] Edema Ankle Right Clinic, in [facility] [address] [place] [address] [place], [place] (Work) [phone] Social History Tobacco Use [...] How often do you attend taoist or catholic More than 4 time s [...] Body Mass Index 50.0 To 59.9 Adult ([facility]) ??? Abuse Tobacco Smoking ??? Migraine Headache ??? Apnea Sleep Obstructive ??? Gastroesophageal Reflux Disease NOS ??? Attention Deficit With Hyperactivity Disorder ??? Depression Major Recurrent ([facility]) Current Outpatient Medications Medication Sig [...] week Gets together: Once a week Attends catholic service: 1 to 4 times per year [...] SECTION; Surgeon: Xin De Leon M.D.; Location: [facility] OR ??? ENDOSCOPIC RETROGRADE CHOLANGIOPANCREATOGRAPHY (ERCP) N/A 11/08/2017 Procedure: ENDOSCOPIC RETROGRADE CHOLANGIOPANCREATOGRAPHY; Surgeon: Rubio Baker M.D.; Location: [facility] OR ??? ESOPHAGOGASTRODUODENOSCOPY N/A 11/11/2017 Procedure: ESOPHAGOGASTRODUODENOSCOPY; Surgeon: Rubio Baker M.D.; Location: [facility] GI LAB ??? LAPAROSCOPIC APPENDECTOMY N/A 09/08/2017 Procedure: LAPAROSCOPIC APPENDECTOMY; Surgeon: Edd Moeller D.O.; Location: [facility] OR ??? LAPAROSCOPIC CHOLECYSTECTOMY WITH CHOLANGIOGRAM N/A 03/03/2018 Procedure: LAPAROSCOPIC CHOLECYSTECTOMY POSSIBLE CHOLANGIOGRAM; Surgeon: Edd Moeller D.O.; Location: [facility] OR ??? OTHER CONVERTED SHX [...] I will refer her semi urgently to [facility] social work #2 Edema Ankle Right Due to asymmetrical nature of this LE edema she will need to be seen face to face in [facility] today I will have her talk to COVID triage nurse to clear her before she can schedule for visit with [facility] doc today. She appears to have no COVID symptoms or risk on my assessment. If she is recommended to need COVID screening she may need to be seen in ER to rule out DVT. Follow up in 1 month(s) Consults and Follow-ups to Schedule Family Medicine office visit (clinic) Dec 06, 2019 Region: [facility] Region Provider needed?: Other Provider Specific provider: face [...] (Approximate) Semi Urg - virtual ok Region: [facility] Region Visit type: Social Work Assessment If [...] visit (clinic) January 05, 2020 (Approximate) Region: [facility] Region Provider needed?: Self Visit length: Long [...] documented as of this encounter Care Teams Forest Scientist Relationship Specialty Start Date End Date Alberto Locke M.D. PCP - General Family Medicine 04/27/19 [address] [place] [phone] documented as of this encounter
--- OUTSIDE RECORDS SUMMARY | 2022-07-17 08:05 | XMS_ITS | Encounter Summary ---
:1985 Author Organization [facility] Address [address] [place] [address] Care Team Providers Name Role Phone Blaire Bundy P.A.-C. Primary Care Provider Reason for Referral Outpatient (Routine) - Closed Specialty Diagnoses / Procedures Referred By Contact Refer red To Contact Obstetrics and Diagnoses PAR Melany Montoya [facility] Gynecology CHRISTOPH RIVERO, M.S.N., B.S.N., R.N. [address] [facility] [place] [address] Referral ID Status Reason Start Date Expiration Date Visits Requ ested Visits Authorized [id number] Closed 04/19/2019 04/18/2020 1 1 Scheduling Instructions Add to my schedule 0815 Reason for Visit Reason Comments Post-op Visit Encounter Details Date Type Department Care Team Description 04/19/2019 Office Visit Department of Melany Montoya, S ection Obstetrics and CHRISTOPH RIVERO, Delivery ([facility] ) Gynecology in [facility] M.S.NBrittaney, B.S.N., (Primar y Dx) [place], [place] R.N. [address] [facility] [address] [facility] [place] [address] [phone] Social History Tobacco Use Types Packs/Day Years [...] How often do you attend druze or yarsanism More than 4 time s [...] documented as of this encounter Care Teams Postdoctoral Scientist Relationship Specialty Start Date End Date Blaire Bundy P.A.-C. PCP - General 02/04/17 04/26/19 documented as of this encounter
--- OUTSIDE RECORDS SUMMARY | 2022-07-17 08:05 | XMS_ITS | Encounter Summary ---
:1985 Author Organization [facility] Address [address] [place] [address] Care Team Providers Name Role Phone Alberto Locke M.D. Primary Care Provider Encounter Details Date Type Department Care Team Description 12/06/2019 Hospital Encounter Department of Ebony, Nuno W, Pain L ower Leg Right[facility] Right [address] [phone] Social History Tobacco Use Types Packs/Day Years [...] How often do you attend rastafari or episcopalian More than 4 time s [...] to pay for the very basics like [employer] hat hard 07/09/2020 food, housing, medical care, [...] documented as of this encounter Care Teams Physical Chemistry Teacher Relationship Specialty Start Date End Date Alberto Locke M.D. PCP - General Family Medicine 04/27/19 [address] [place] [address] documented as of this encounter
--- OUTSIDE RECORDS SUMMARY | 2022-07-17 08:05 | XMS_ITS | Encounter Summary ---
:1985 Author Organization [facility] Address [address] [place] [address] Care Team Providers Name Role Phone Blaire [...] How often do you attend advent or mosque More than 4 time s [...] seen for a Consultation on 04/17/19 at [facility] class for weight and feeding check. [...] Beyond class as desired. Hoda Coker R.N., BryceC. documented in this encounter Plan of Treatment Not on filedocumented as of this encounter Visit Diagnoses Not on filedocumented in this encounter Additional Health Concerns Assessment Noted Time PHQ-9 Depression Total Score: 7 04/07/2017 9:39 AM CDT documented as of this encounter Care Teams Business Associate Relationship Specialty Start Date End Date Blaire Bundy P.A.-C. PCP - General 02/04/17 04/26/19 documented as of this encounter
--- OUTSIDE RECORDS SUMMARY | 2022-07-17 08:05 | XMS_ITS | Encounter Summary ---
:1985 Author Organization [facility] Address [address] [place] [address] Care Team Providers Name Role Phone Alberto Locke M.D. Primary Care Provider Reason for Visit Reason Comments URI Appointment Request (Routine) - Closed Specialty Diagnoses / Procedures Referred By Contact Refer red To Contact Family Medicine Referral ID Status Reason Start Date Expiration Date Visits Requ ested Visits Authorized [id number] Closed 09/11/2019 09/10/2020 1 1 Encounter Details Date Type Department Care Team Description 09/11/2019 Office Visit Department of Family Gerda Pike [facility] (Primary Dx); Medicine, [place] FOXING CLOSER, C.N.P., Phar yngitis Acute; Clinic, in [place] D.N.PBrittaney Body Mass Index 50.0 To 59.9 Adult (HCC) ; [place] [address] Abuse Tobacco Smoking [address] [place] [phone] Social History Tobacco Use Types Packs/Day Years [...] How often do you attend mu-ism or denominational More than 4 time s [...] Comments Blood Pressure 130/73 09/11/2019 9:34 AM MEDICATION CARE MANAGER Pulse 92 09/11/2019 9:34 AM MEDICATION CARE MANAGER Temperature 35.7 ??C (96.3 ??F) 09/11/2019 9:34 AM MEDICATION CARE MANAGER Respiratory Rate - - Oxygen Saturation 95% 09/11/2019 9:34 AM MEDICATION CARE MANAGER Inhaled Oxygen Concentration - - Weight 136 kg (299 lb 13.2 oz) 09/11/2019 9:34 AM MEDICATION CARE MANAGER Height - - Body Mass Index 54.82 [...] No h/o asthma. No fever reducers today. CATION CARE MANAGER Gerda Pike APRN, C.NJud, D.N.P. - 09/11/2019 [...] Patient/Child/Caregiver expressed understanding of the content. Gerda Pkie APRN, C.N.P., D.N.P. CATION CARE MANAGER documented in this encounter Plan of Treatment Not on filedocumented as of this encounter Procedures Procedure Name Priority Date/Time Associated Diagnosis Comme nts INFLUENZA A, B, Routine 09/11/2019 10:29 AM Resul ts for this RSV, PCR, POCT MEDICATION CARE MANAGER procedure are in the results section. STREP GROUP A, PCR, Routine 09/11/2019 10:17 AM R esults for this POCT MEDICATION CARE MANAGER procedure are i n the results section. STREP GROUP A, PCR, Routine 09/11/2019 9:52 AM Pharyngitis Acu te Results for this POCT MEDICATION CARE MANAGER procedure are i n the results section. INFLUENZA A, B, Routine 09/11/2019 9:52 AM Cough Result s for this RSV, PCR, POCT MEDICATION CARE MANAGER procedure are in the results section. documented in this encounter Results Influenza A/B and RSV, PCR, Point of Care (09/11/2019 10:29 AM MEDICATION CARE MANAGER) P athologist Signature Influenza A, Negative Negative 09/11/2019 CNFL POCT 10:29 AM MEDICATION CARE MANAGER Influenza B, Negative Negative 09/11/2019 CNFL POCT 10:29 AM MEDICATION CARE MANAGER Resp Syncytial Negative Negative 09/11/2019 CNFL Virus, POCT 10:29 AM MEDICATION CARE MANAGER Specimen Anatomical Collection Method Collection Time Receive d Time (Source) Location / / Volume Laterality Varies 09/11/2019 10:29 09/11/2019 AM MEDICATION CARE MANAGER 10:30 AM MEDICATION CARE MANAGER Generic R[facility] LAB POCT ORDERABLES - DEVICE Performing Organization Address [facility] Phon e Number [address] [address] [place] [address] System in [address] Strep Group A, PCR, Point of Care (09/11/2019 10:17 AM MEDICATION CARE MANAGER) athologist Signature Strep Group A, Negative Negative 09/11/2019 CNFL PCR, POCT 10:17 AM MEDICATION CARE MANAGER Specimen Anatomical Collection Method Collection Time Receive d Time (Source) Location / / Volume Laterality Varies 09/11/2019 10:17 09/11/2019 AM MEDICATION CARE MANAGER 10:21 AM MEDICATION CARE MANAGER Generic [facility] POCT ORDERABLES - DEVICE Performing Organization Address [facility] Phon e Number [address] [address] [place] [address] System in [address] Strep Group A, PCR, Point of Care (09/11/2019 9:52 AM MEDICATION CARE MANAGER) Analysis Performed At Patho logist Time Signature Strep Group A, Collected DEFAULT 09/11/2019 CNFL PCR, POCT 9:58 AM MEDICATION CARE MANAGER Specimen Anatomical Collection Method Collection Time Receive d Time (Source) Location / / Volume Laterality Varies (Throat) 09/11/2019 9:52 AM 2019 9:58 MEDICATION CARE MANAGER AM MEDICATION CARE MANAGER Marlyn Camacho APRN.N.P., D.N.P. LAB POCT ORDERABL ES - DEVICE Performing Organization Address [facility] Code Phon e Number [address] [address] [place] [address] System in [address] Influenza A/B and RSV, PCR, Point of Care (09/11/2019 9:52 AM MEDICATION CARE MANAGER) Analysis Performed At Patho logist Time Signature Influenza A, Collected DEFAULT 09/11/2019 CNFL B, RSV, PCR, 9:58 AM MEDICATION CARE MANAGER POCT Specimen Anatomical Collection Method Collection Time Receive d Time (Source) Location / / Volume Laterality Varies 09/11/2019 9:52 AM 0 9:58 (Nasopharynx) MEDICATION CARE MANAGER AM MEDICATION CARE MANAGER Marlyn Camacho APRN.N.P., D.N.P. LAB POCT ORDERABL ES - DEVICE Performing Organization Address [facility] Code Phon e Number [address] [address] [place] [address] System [address] documented in this encounter Visit Diagnoses Diagnosis Cough Unspecified Type - Primary Pharyngitis Acute Body Mass Index 50.0 To 59.9 Adult (HCC) Abuse Tobacco Smoking documented in this encounter Additional Health Concerns Assessment Noted Time PHQ-9 Depression Total Score: 3 05/30/2019 10:59 AM CD T documented as of this encounter Care Teams Insulation Mechanic Relationship Specialty Start Date End Date Alberto Locke M.D. PCP - General Family Medicine 04/27/[address] [place] [address] [place] [phone] documented as of this encounter
--- OUTSIDE RECORDS SUMMARY | 2022-07-17 08:05 | XMS_ITS | Encounter Summary ---
:1985 Author Organization [facility] Address [address] [place] [address] Care Team Providers Name Role Phone Alberto Locke M.D. Primary Care Provider Encounter Details Date Type Department Care Team Description 07/03/2019 Orders Only Department of Family Alberto Locke M.D. Medicine, [facility], [address] [facility] [place] [address] [address] [place] [address] [phone] Social History Tobacco Use Types Packs/Day Years [...] How often do you attend mormonism or hinduism More than 4 time s [...] to pay for the very basics like [employer] hat hard 07/09/2020 food, housing, medical care, [...] documented as of this encounter Care Teams Electrician Radio Relationship Specialty Start Date End Date Alberto Locke M.D. PCP - General Family Medicine 04/27/19 [address] [place] [address] documented as of this encounter
--- OUTSIDE RECORDS SUMMARY | 2022-07-17 08:06 | XMS_ITS | Encounter Summary ---
:1985 Author Organization [facility] Address [address] [place] [address] Care Team Providers Name Role Phone Blaire Bundy P.A.-C. Primary Care Provider [phone] Encounter Details Date Type Department Care Team Description 05/11/2018 Immunization Department of Blaire Bundy P.A.-C. [address] [place], [place] [id number] Need Vaccine Pediatrics in [place] Zeinab Gong, L.P.N. [address] [place] [address] Immunization ([place], [place] Dx) [address] [place] [address] Social History Tobacco Use Types [...] How often do you attend sabianism or mormon More than 4 time s [...] documented as of this encounter Care Teams Dimmer Board Operator Relationship Specialty Start Date End Date Blaire Bundy P.A.-C. PCP - General 02/04/17 04/26/19 documented as of this encounter
--- OUTSIDE RECORDS SUMMARY | 2022-07-17 08:06 | XMS_ITS | Encounter Summary ---
:1985 Author Organization [facility] Address [address] [place] [address] Care Team Providers Name Role Phone Blaire Bundy P.A.-C. Primary Care Provider [phone] Reason for Referral Outpatient (Routine) - Closed Specialty Diagnoses / Procedures Referred By Contact Refer red To Contact Diagnoses Gallstone Edd Moeller D.O. [facility] Region Procedures [place] Fluoro Less Than 1 Hour CA FLUOROSCOPY EXAM UP TO 1 HR HC FLUOROSCOPY EXAM UP TO 1 HR CA FLUOROSCOPY EXAM UP TO 1 HR [address] [place] [place] [address] Referral ID Status Reason Start Date Expiration Date Visits Requ ested Visits Authorized [id number] Closed 03/03/2018 03/03/2019 1 1 Reason for Visit Auth/Cert Specialty Diagnoses / Procedures Referred By Contact Refer red To Contact Diagnoses Gallstone With Common Bile Duct Stone Procedures CA LAPAROSCOPY CHOLECYST W CHOLNG LAPAROSCOPIC CHOLECYSTECTOMY WITH CHOLANGIOGRAM Referral ID Status Reason Start Date Expiration Date Visits Requ ested Visits Authorized [id number] 1 1 Encounter Details Date Type Department Care Team Description 03/03/2018 Hospital Encounter Department of Radiology Raphael Moeller, Gallstone in KinderTerese D.O. [address] [place] [address] [place] [address] [phone] (Wo rk) Social History Tobacco Use Types [...] How often do you attend rastafari or faith More than 4 time s [...] Time Received Time / Laterality Volume Narrative [id number] - 03/03/2018 10:01 AM CDT This exam does not require a radiologist review or interpretation. Please refer to the patient? s medical record on this date for clinical details. Edd CH FLUOROSCOPY PROCEDURES Performing Organization Address City/State/ZIP Code Phon e Number [id number] NA documented in this encounter Visit Diagnoses Diagnosis Gallstone documented in this encounter Additional Health Concerns Assessment Noted Time PHQ-9 Depression Total Score: 7 04/07/2017 9:39 AM CDT documented as of this encounter Care Teams Florist Helper Relationship Specialty Start Date End Date Blaire Bundy P.A.-C. PCP - General 02/04/17 04/26/19 documented as of this encounter
--- OUTSIDE RECORDS SUMMARY | 2022-07-17 08:06 | XMS_ITS | Encounter Summary ---
:1985 Author Organization [facility] Address [address] [place] [address] Care Team Providers Name Role Phone Blaire Bundy P.A.-C. Primary Care Provider [phone] Encounter Details Date Type Department Care Team Description 07/20/2018 Hospital Encounter Department of Marisol Irving Contrace ption Personal Laboratory Medicine MAINSPRING WINDER AND OILER, C.N.P. History in [address] [address] [place], [place] [phone] [address] (Work) [phone] Social History Tobacco Use Types Packs/Day Years [...] How often do you attend amish or church More than 4 time s [...] Results for this POCT, U (LAB) AM APPLE THINNER History procedure are in the results section. documented in this encounter Results Test, POCT, Urine (lab) (07/20/2018 10:24 AM APPLE THINNER) P athologist Signature Negative 07/20/2018 [facility] Test, POCT, U 10:31 AM APPLE THINNER [facility] Specimen Anatomical Collection Method Collection Time Receive d Time (Source) Location / / Volume Laterality Urine (Urine, 07/20/2018 10:24 07/20/2018 Clean Catch) AM [facility]NER 10:24 AM [facility] Marisol Irving APRN, C.N.P. LAB POCT ORDERABLES - DEVICE Performing Organization Address City/State/ZIP Code Phon e Number [facility] [address] [place] [address] [place] [address] [facility] documented in this encounter Visit Diagnoses Diagnosis Contraception Personal History documented in this encounter Additional Health Concerns Assessment Noted Time PHQ-9 Depression Total Score: 7 04/07/2017 9:39 AM CDT documented as of this encounter Care Teams Maintenance Planner Relationship Specialty Start Date End Date Blaire Bundy P.A.-C. PCP - General 02/04/17 04/26/19 documented as of this encounter
--- OUTSIDE RECORDS SUMMARY | 2022-07-17 08:06 | XMS_ITS | Encounter Summary ---
:1985 Author Organization [facility] Address [address] [place] [address] Care Team Providers Name Role Phone Blaire [...] Diagnoses Pain Toe Pain Toe Blaire Bundy, [facility] Procedures ORS CONS FOOT POD P.A.-C. [address] [place], [place] [address] Referral ID Status Reason Start Date Expiration Date Visits Requ ested Visits Authorized [id number] Closed 02/18/2018 02/18/2019 1 1 Encounter Details Date Type Department Care Team Description 03/14/2018 Comprehensive Visit Department of Riccardo Cottrell, Ingrown Nail (Primary Dx); Orthopedic Surgery Mickey Nuñez Pain Toe; in [place], [facility] [address] FABIAN Onychomycosis; [place], [place] High Risk Medication [address] [place] [address] [place], [place] [phone] [address] (Work) [phone] Social History Tobacco Use Types Packs/Day Years [...] How often do you attend voodoo or druze More than 4 time s [...] 10:04 AM Onychomycos is Results for this [facility] High Risk Medication procedu re are in the results section. documented in this encounter Results (ABNORMAL) Hepatic Function Panel (03/14/2018 10:04 AM CDT) [facility] Method Time Signature Bilirubin, Total, S 0.9 <=1.2 03/14/2018 [facility] mg/dL 10:53 AM [facility] [place] [facility] Bilirubin, Direct, S 0.2 0.0 - 0.3 03/14/2018 [facility] mg/dL 10:53 AM [facility] Aspartate 18 8 - 43 03/14/2018 [facility] Aminotransferase U/L 10:53 AM [facility] Alanine 15 7 - 45 03/14/2018 [facility] Aminotransferase U/L 10:53 AM [facility] Alkaline 69 37 - 98 03/14/2018 [facility] Phosphatase, S U/L 10:53 AM T [facility] Albumin, S 3.5 3.5 - 5.0 03/14/2018 [facility] g/dL 10:53 AM CDT [facility] Protein, Total, S 6.2 (L) 6.3 - 7.9 03/14/2018 [facility] g/dL 10:53 AM T [facility] Specimen Anatomical Collection Method Collection Time Receive d Time (Source) Location / / Volume Laterality Blood (Blood, 03/14/2018 10:04 03/14/2018 Venous) AM CDT 10:09 AM CDT Gloria Johnson D.P.M. LAB BLOOD ADD-ON Performing Organization Address City/State/[facility] Code Phon e Number [facility] [id number] [address] [facility] documented in this encounter Visit Diagnoses Diagnosis Ingrown Nail - Primary Pain Toe Onychomycosis High Risk Medication documented in this encounter Additional Health Concerns Assessment Noted Time PHQ-9 Depression Total Score: 7 04/07/2017 9:39 AM CDT documented as of this encounter Care Teams Wooden Furniture Polisher Relationship Specialty Start Date End Date Blaire Bundy P.A.-C. PCP - General 02/04/17 04/26/19 documented as of this encounter
--- OUTSIDE RECORDS SUMMARY | 2022-07-17 08:06 | XMS_ITS | Encounter Summary ---
:1985 Author Organization [facility] Address [address] [place] [address] Care Team Providers Name Role Phone Blaire Bundy P.A.-C. Primary Care Provider Encounter Details Date Type Department Care Team Description 04/13/2019 Clinical Communication Department of Dawna Madera Obstetrics and Adelita Reddy Gynecology in [address] [address] [place] [phone] Social History Tobacco Use Types Packs/Day Years [...] How often do you attend buddhist or moravian More than 4 time s [...] documented as of this encounter Care Teams Time Checker Relationship Specialty Start Date End Date Blaire Bundy P.A.-C. PCP - General 02/04/17 04/26/19 documented as of this encounter
--- OUTSIDE RECORDS SUMMARY | 2022-07-17 08:06 | XMS_ITS | Encounter Summary ---
:1985 Author Organization [facility] Address [address] [place] [address] Care Team Providers Name Role Phone Blaire Bundy P.A.-C. Primary Care Provider [phone] Reason for Visit Auth/Cert Specialty Diagnoses / Procedures Referred By Contact Refer red To Contact Diagnoses Precipitate Labor (HCC) Procedures x Referral ID Status Reason Start Date Expiration Date Visits Requ ested Visits Authorized [id number] 1 1 Encounter Details Date Type Department Care Team Description 04/12/2019 Anesthesia Event [facility] MAIN OR Alfonso Schmitz M.D., J.D. [address] [place] [phone] [address] Alfonso Tang, ROOM WORKER, WINDER FIXER [address] [facility] [place] [address] [place] [address] Anesthesia Record Procedure Summary Procedure [...] h andoff to the receiving staff during [facility] ch we 1. Identified the patient [...] 1418 by Abdomen; and Antionette Marcos, R.N. Vdrj-Pitjxb-Jcpn groun dermabond; DRSG PRINT LINE SUPERVISOR d, Schedulin g WND ADH NEONAT 2X3.75 Automated Batch Job (x3); 05/13/21 (Removed by background completion utility); 1418 (Removed by background completion utility) (RETIRED) Incision 03/03/18; 0953; 03/03/18 0953 by 05/13/21 141 8 by Abdomen; dermabond; Darius Castro RBrittaneyN. [facility] katalina-Backgroun SPNG DRSG PRINT LINE SUPERVISOR GZ STRL d, Schedul ing 8PLY 2X2; [...] Fetzer, Megan J RRoverto Time: 1007 (created WINDER FIXER via procedure documentation); Mask Ventilation: Not attempted; Type: Standard ETT; Single Lumen Tube Size: 7 mm; Cuffed: Yes; Location: Oral; Removal Date: 05/19/21 (Not present upon arrival to ED) (RETIRED) Incision 04/12/19; 1041; 04/12/19 1041 by 05/13/21 141 8 by Abdomen; [facility] AG Sarah Solis, [facility]-Backgroun SURG ADH 3.5X12 (x1); R.N. d, Schedul ing 05/13/21 (Removed by Automated B [facility] Job background completion utility); 1418 (Removed [...] How often do you attend christian or cheondoism More than 4 time s [...] Procedure Summary Date: 04/12/19 Room / Location: [facility] 1401 / [facility] GI Anesthesia Start: 1003 Anesthesia [...] 04/12/19 1003 Procedure: SECTION (N/A ) Location: [address] 1401 / [facility] Surgeon: Xin De Leon M.D. Pertinent components [...] Bonner CRNA RBrittaneyNBrittaney - 07/14/2019 1:05 PM MOBILE QA TESTER Addendum created 07/14/19 1305 by Alfonso Bonner CRNA, R.NBrittaney Care Path modified LE QA TESTER Addendum Note - Alfonso Bonner CRNA RRoverto [...] documented as of this encounter Care Teams Religious Assistant Relationship Specialty Start Date End Date Blaire Bundy P.A.-C. PCP - General 02/04/17 04/26/19 documented as of this encounter
--- OUTSIDE RECORDS SUMMARY | 2022-07-17 08:06 | XMS_ITS | Encounter Summary ---
:1985 Author Organization [facility] Address [address] [place] [address] Care Team Providers Name Role Phone Blaire Bundy P.A.-C. Primary Care Provider Encounter Details Date Type Department Care Team Description 07/21/2018 Orders Only Department of Leonora Reaves, Morbid Obesi ty Body Obstetrics and EARTH SCIENCE TECHNICAL OFFICER, C.N.P. Mass Index 50.0-59.9 Gynecology in [facility] [address] Adult (HCC) ([place], [place] Dx) [address] [place] [address] [place], [place] [phone] [address] (Work) [phone] Social History Tobacco Use Types Packs/Day Years [...] How often do you attend hinduism or congregational More than 4 time s [...] Obesity Body Mass Index 50.0-59.9 Adult (HCC) - Primary documented in this encounter Additional Health Concerns Assessment Noted Time PHQ-9 Depression Total Score: 7 04/07/2017 9:39 AM CDT documented as of this encounter Care Teams Stacker Relationship Specialty Start Date End Date Blaire Bundy P.A.-C. PCP - General 02/04/17 04/26/19 documented as of this encounter
--- OUTSIDE RECORDS SUMMARY | 2022-07-17 08:06 | XMS_ITS | Encounter Summary ---
:1985 Author Organization [facility] Address [address] [place] [address] Care Team Providers Name Role Phone Blaire Bundy P.A.-C. Primary Care Provider [phone] Reason for Visit Reason Comments Contraception Appointment Request (Routine) - Closed Specialty Diagnoses / Procedures Referred By Contact Refer red To Contact Obstetrics and Diagnoses PAR REVIEW [facility] Gynecology Procedures OBG NEW WINE STEWARD Referral ID Status Reason Start Date Expiration Date Visits Requ ested Visits Authorized [id number] Closed 07/01/2018 07/01/2019 1 1 Encounter Details Date Type Department Care Team Description 07/20/2018 Comprehensive Visit Department of Leonora Villaseñor Inser tion Contraceptive Subdermal (Primary Dx); Obstetrics and COURT MESSENGER, C.N.P. Morbid Obesity Body Mass Index 50.0-59.9 Adult (HCC) Gynecology in [address] [address] Social History Tobacco Use [...] How often do you attend confucianism or religion More than 4 time s [...] Comments Blood Pressure 140/90 07/20/2018 10:50 AM HOSTESS PARTY SALES REPRESENTATIVE Pulse - - Temperature - - Respiratory Rate - - Oxygen Saturation - - Inhaled Oxygen Concentration - - Weight 142 kg (313 lb 0.9 oz) 07/20/2018 10:50 AM HOSTESS PARTY SALES REPRESENTATIVE Height - - Body Mass Index 57.24 [...] the patient and/or decision maker.: Not addressed Gresham protocol: All relevant documentation and testing were [...] completed successfully: yes Complications: no apparent complications WINE STEWARD Subjective: Patient is here to discuss control [...] not yet be positive. According to the [facility] quick start control care model she will repeat a test at home in 1-2 weeks, and return to clinic if a positive test. Backup control is advised for 1 week. She also has questions about weight loss surgery, weight loss. Consult is placed to [facility] in [place]. ESS PARTY SALES REPRESENTATIVE documented in this encounter Plan of Treatment Not on filedocumented as of this encounter Procedures Procedure Name Priority Date/Time Associated Diagnosis Comme nts TN INS Routine 07/20/2018 11:00 Insertion Results for this NON-BIODEGRADABLE AM HOSTESS PARTY SALES REPRESENTATIVE Contraceptive procedure are in DRUG DEL Subdermal the results section. documented in this encounter Results TN INS NON-BIODEGRADABLE DRUG DEL (07/20/2018 11:00 AM HOSTESS PARTY SALES REPRESENTATIVE) Narrative MMODAL - 07/20/2018 11:00 AM HOSTESS PARTY SALES REPRESENTATIVE Leonora Villaseñor, COURT MESSENGER, C.N.P. ? 07/20/2018 ??1:27 PM Subdermal Contraceptive [...] the patient and/or decision maker.: ??Not addressed Gresham protocol: ??All relevant documentation and testin g [...] no apparent complicati ons ?? Leonora Villaseñor APRN, C.N.P. OB GYNE ORDERABLES Performing Organization Address City/State/ZIP [...] 68 mg subdermal Given 07/20/2018 1:21 PM HOSTESS PARTY SALES REPRESENTATIVE 1 each implant 1 each (NEXPLANON) 1 each, subdermal, One-Time, Starting on Wed07/20/18 at 1321, For 1 dose documented in this encounter Additional Health Concerns Assessment Noted Time PHQ-9 Depression Total Score: 7 04/07/2017 9:39 AM CDT documented as of this encounter Care Teams Block Sealer Relationship Specialty Start Date End Date Blaire Bundy P.A.-C. PCP - General 02/04/17 04/26/19 documented as of this encounter
--- OUTSIDE RECORDS SUMMARY | 2022-07-17 08:06 | XMS_ITS | Encounter Summary ---
:1985 Author Organization [facility] Address [address] [place] [address] Care Team Providers Name Role Phone Blaire Bundy P.A.-C. Primary Care Provider [phone] Reason for Visit Reason Comments Post-op Lap emma 03/03/18 Outpatient (Routine) - Closed Specialty Diagnoses / Procedures Referred By Contact Refer red To Contact General Surgery Diagnoses Gallstone With Common Bile Duct Stone par review Edd Moeller, [facility] Procedures GNS POST OP D.O. [address] [place] [address] Referral ID Status Reason Start Date Expiration Date Visits Requ ested Visits Authorized [id number] Closed 03/03/2018 03/03/2019 1 1 Encounter Details Date Type Department Care Team Description 03/16/2018 Office Visit Department of General Edd Moeller Ga llstone With Common Surgery in Jason Rivera D.O. Bile Duct Stone [place] [address] [facility] [address] [place] [address] [place] [phone] [address] (Work) [phone] Social History Tobacco Use Types Packs/Day Years [...] often do you attend latter day or mormonism More than 4 time s [...] happy to reevaluate as needed Job ID: [id number] documented in this encounter Plan of Treatment Not on filedocumented as of this encounter Visit Diagnoses Diagnosis Gallstone With Common Bile Duct Stone documented in this encounter Additional Health Concerns Assessment Noted Time PHQ-9 Depression Total Score: 7 04/07/2017 9:39 AM CDT documented as of this encounter Care Teams Management Liaison Relationship Specialty Start Date End Date Blaire Bundy P.A.-C. PCP - General 02/04/17 04/26/19 documented as of this encounter
--- OUTSIDE RECORDS SUMMARY | 2022-07-17 08:06 | XMS_ITS | Encounter Summary ---
:1985 Author Organization [facility] Address [address] [place] [address] Care Team Providers Name Role Phone Blaire Bundy P.A.-C. Primary Care Provider [phone] Reason for Visit Reason Comments Abdominal Pain pt brought in by ambulance w ith abd pain/contractions. pt states she has nexplanon in her arm and had no idea she was Auth/Cert Specialty Diagnoses / Procedures Referred By Contact Refer red To Contact Diagnoses Precipitate Labor (HCC) Procedures x Referral ID Status Reason Start Date Expiration Date Visits Requ ested Visits Authorized [id number] 1 1 Encounter Details Date Type Department Care Team Description 04/12/[address] [facility] MAIN OR Xin Vaughn M.D. SECTION [address] [place] [address] [place], [place] [phone] ( rk) Social History Tobacco Use Types [...] How often do you attend hoahaoism or mormonism More than 4 time s [...] Case IDs Date Procedure Surgeon Location Status [id number] 04/12/19 SECTION Xin Vaughn M.D. [facility] OR Comp Review the Delivery Report for details. GA: Unknown GP: Risk Factors: Obesity No Care Asthma Obstetric Procedures this : None Labor Complications: Persistent Category 2;Precipitous Labor <3 Hours Delivery Details: 04/12/2019 10:10 AM with Apgars of 8 and 9 . Delivery Type: , Low Transverse Lacerations: Nabeel Clayton [[id number]] Weight: 3.93 kg Feeding Method: both breast [...] due to habitus. She was placed on pvc monitor. She was tachycardic in the 110s-130s. [...] 10:00 AM Melany Montoya APRN, CHRISTOPH [facility] 05/30/2019 11:00 AM Leonora Reaves APRN, C.N.P. 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 ) Filter Assembler Services Used: No Patient Information Primary Caregiver: Self Legal Information Legal Decision Maker: Self OBJECTIVE Functional Status (ADLs) Functional Status: Independent Behavior: Oriented Communication: Can write, Talks, Understands speaking, Understands Bahraini Environmental Supports Home Environment: Apartment(Puneet and her 11 year old son-Edy and her alomst 2 year old son-Shahzad,along with daughter-Keri Juarez reside in an apartment in [place], [place] . Plan todischarge to her mothers home in [place] upon discharge.) Anticipated Needs/Assistive Devices ADL Anticipated Needs: None Equipment Anticipated Needs: None Transportation Needs: Support from family(Has a car seat and her family will pick her up whenever medically stable. ) Finance/Insurance Primary insurance: [facility] Secondary insurance: N/A Does the Patient [...] Juarez. Puneet resides in an apartment in [place], [place] along with her two sons, Edy, age 11 years (will be in middle school this year) and son-Shahzad who will be two in June,.Puneet does not receive any child support for Edy or Shahzad. Puneet is legally to their father, Brendon Roger Claytonof [place], [place]. This worker called, by request of uPneet, to Brendon and requested that he schedule a visit to complete the necessary paperwork for the 's Non- Paternity Statement.(scheduled at 11:00am April 14 with the OB-METAL WASHING MACHINE OPERATOR.) Brendon can be reached at [phone]. He lives in [place]. Puneet reports, and Brendon confirmed that they have been for one and a half years. Puneet's mother, Nichole Young is very support, along with a close cousin, Chloe who both reside within blocks of each other in [place]. Puneet also has two younger sisters, Leonora is a half sister and lives in [place], Xin is a step sister. All are reportedly supportive in her life. Puneet's dad is also a support and was watching Max when she went into labor at the [employer] in [place]. Puneet's dad lives in [place], [place] and is supportive of her and the new baby. In discussing options, Puneet very clearly wants to parent this baby girl. Puneet also stated that she already loves Keri very much, as does the rest of the family, including her oldest brother, Edy. Puneet had recently applied for food stamps in [facility] and was denied because she was $10 over the income level. Puneet will apply again, now with an additional child on the case. Provided Puneet with WIC(Women, Infants & Children) Program, including documents that are needed for [facility], [phone]. Puneet will call and set up an [...] He reportedly has two other children in [place] that he does not financially support or [...] . She was transferred in [facility] ambulance having contractions last approximately 1 [...] being transferred to the Labor and delivery [facility] and accepted by .. [...] <3 Hours Delivery Type: , Low Transverse [place] Weight: 3930 g 1 Minute 5 Minute [...] 04/17 for weight check. Olivia Stark R.N. [facility] - Harleen Josue D.O. - [...] due to habitus. She was placed on pvc monitor. She was tachycardic in the 110s-130s. [...] for use as needed. . . Assessment Fieldon in color, transcutaneous bilirubin at 44 hours [...] consult daily on [facility] rounds until discharge. Hdoa Coker R.N., I.B.C.L.C. Note - Olivia Stark R.N. - 04/13/2019 8:30 AM CDT This note was copied from a baby's chart. SUBJECTIVE Girl Puneet Clayton, at 1 days old of age, was seen for a Consultation. OBJECTIVE Delivery Details: Risk Factors: Obesity No Care Asthma Obstetric Procedures-This : None Labor Complications: Persistent Category 2;Precipitous Labor <3 Hours Delivery Type: , Low Transverse [place] Weight: 3930 g 1 Minute 5 Minute [...] Puneet Clayton 33 y.o. Yasir, Girl Puneet [[id number]] Delivery Providers Delivering clinician: Xin Vaughn M.D. Provider Role Delivery Nurse Nursery Nurse Licensed And Certified Midwife Review the Delivery Report for details. GA: [...] CBC without Differential (04/14/2019 11:00 AM CDT) [facility] Method Time Signature Hemoglobin 8.6 (L) [...] Code Phon e Number [facility] [address] [place] [address] LAB (ABNORMAL) CBC without Differential (04/14/2019 6:35 AM CDT) [facility] Method Time Signature Hemoglobin 8.2 (L) 11.6 [...] Code Phon e Number [facility] [address] [place] [address] [place] [facility] (ABNORMAL) CBC with Differential, Blood (04/13/2019 9:43 PM CDT) [facility] Method Time Signature Hemoglobin 8.9 (L) 11.6 [...] Code Phon e Number [facility] [address] [place] [address] [place] [facility] Rubella Antibodies, IgG (04/13/2019 5:05 PM [...] Code Phon e Number [facility] [address] [place] [address] [place] [address] [facility] Syphilis IgG Antibody with Reflex (04/13/2019 [...] Code Phon e Number [facility] [place] [address] [place] [address] [place] [address] [facility] (ABNORMAL) CMP (Comprehensive Metabolic Panel) (04/13/2019 [...] >=60 04/13/2019 Black/ mL/min/BSA 5:55 PM CDT [place] Comment: ----ADDITIONAL INFORMATION---- Estimated GFR calculated using [...] Code Phon e Number [facility] [address] [place] [address] [place] [facility] (ABNORMAL) CBC with Differential, Blood (04/13/2019 5:05 PM CDT) [facility] Method Time Signature Hemoglobin 9.1 (L) [...] Code Phon e Number [facility] [address] [facility] [place] [address] [place] [facility] Transfuse Red Blood Cells (04/13/2019 12:21 [...] >=60 04/13/2019 Black/ mL/min/BSA 7:14 AM CDT [place] Comment: ----ADDITIONAL INFORMATION---- Estimated GFR calculated using [...] Code Phon e Number [facility] [place] [address] [place] [facility] (ABNORMAL) CBC without Differential (04/13/2019 6:35 [...] Phon e Number [facility] [place] [address] [place] [facility] Phosphorus Inorganic (04/12/2019 11:36 PM CDT) [...] Code Phon e Number [facility] [place] [address] [place] [facility] Magnesium (04/12/2019 11:36 PM CDT) P athologist Signature Magnesium, S 2.3 1.7 - 2.3 04/13/2019 mg/dL 12:30 AM CDT Specimen Anatomical Collection Method Collection Time Receive d Time (Source) Location / / Volume Laterality Blood (Blood, 04/12/2019 11:36 04/12/2019 Venous) PM CDT 11:40 PM CDT Xin Vaughn M.D. LAB BLOOD ADD-ON Performing Organization Address City/State/ZIP Code Phon e Number [facility] [address] [place] [address] [place] [facility] (ABNORMAL) CMP (Comprehensive Metabolic Panel) (04/12/2019 [...] >=60 04/13/2019 Black/ mL/min/BSA 12:30 AM CDT [place] Comment: ----ADDITIONAL INFORMATION---- Estimated GFR calculated using [...] Code Phon e Number [facility] [address] [place] [address] [place] [facility] (ABNORMAL) CBC without Differential (04/12/2019 11:36 PM CDT) [facility] Method Time Signature Hemoglobin 9.3 (L) [...] Code Phon e Number [facility] [address] [place] [address] [place] [facility] US Lower Extremity Veins Bilateral [...] CBC without Differential (04/12/2019 8:03 PM CDT) [facility] Method Time Signature Hemoglobin 9.6 (L) 11.6 [...] M.D. LAB BLOOD ADD-ON Performing Organization Address City/[facility]/ZIP Code Phon e Number [address] [address] [place] [facility] (ABNORMAL) Protein/Creatinine Ratio, Random, Urine (04/12/2019 3:57 PM CDT) [facility] Method Time Signature Protein, Total, 85 mg/dL [...] M.D. LAB URINE ORDERABLES Performing Organization Address City/[facility]/ZIP Code Phon e Number [address] [place] [address] [place] [facility] (ABNORMAL) Drug Screen Urine (04/12/2019 3:57 PM CDT) athologist Signature Amphetamines, Negative Negative 04/12/2019 U 4:20 PM CDT Comment: ----ADDITIONAL INFORMATION---- Taper Machine's Cutoff: 500 ng/mL Barbiturates, U Negative Negative 04/12/2019 4:20 PM CDT Comment: ----ADDITIONAL INFORMATION---- Taper Machine's Cutoff: 200 ng/mL Benzodiazepines, U Negative Negative 04/12/2019 4:20 PM CD T Comment: ----ADDITIONAL INFORMATION---- Taper Machine's Cutoff: 150 ng/mL Buprenorphine, U Negative Negative 04/12/2019 4:20 PM CDT Comment: ----ADDITIONAL INFORMATION---- Taper Machine's Cutoff: 10 ng/mL Cocaine, U Negative Negative 04/12/2019 4:20 PM CDT Comment: ----ADDITIONAL INFORMATION---- Taper Machine's Cutoff: 150 ng/mL Methadone, U Negative Negative 04/12/2019 4:20 PM CDT Comment: ----ADDITIONAL INFORMATION---- Taper Machine's Cutoff: 200 ng/mL Methamphetamines, U Negative Negative 04/12/2019 4:20 PM C DT Comment: ----ADDITIONAL INFORMATION---- Taper Machine's Cutoff: 500 ng/mL Opiates, U Unconfirmed Positive (A) Negative 04/12/2019 4:2 0 PM CDT Comment: ----ADDITIONAL INFORMATION---- Taper Machine's Cutoff: 100 ng/mL Oxycodone, U Negative Negative 04/12/2019 4:20 PM CDT Comment: ----ADDITIONAL INFORMATION---- Taper Machine's Cutoff: 100 ng/mL Phencyclidine, U Negative Negative 04/12/2019 4:20 PM CDT Comment: ----ADDITIONAL INFORMATION---- Taper Machine's Cutoff: 25 ng/mL Propoxyphene, U Negative Negative 04/12/2019 4:20 PM CDT Comment: ----ADDITIONAL INFORMATION---- Taper Machine's Cutoff: 300 ng/mL Tetrahydrocannabinol, U Negative Negative 04/12/2019 4:20 PM CDT Comment: ----ADDITIONAL INFORMATION---- Taper Machine's Cutoff: 50 ng/mL Tricyclic Antidepressants, U Negative Negative 04/12/2019 4:20 PM CDT Comment: ----ADDITIONAL INFORMATION---- Taper Machine's Cutoff: 300 ng/mL THE ABOVE DRUG SCREEN PANEL IS FOR MED ICAL PURPOSES ONLY Specimen Anatomical Collection Method Collection Time Receive d Time (Source) Location / / Volume Laterality Urine (Urine, 04/12/2019 3:57 PM 04/12/20 19 3:57 Catheter) CDT PM CDT Xin Vaughn M.D. LAB URINE ORDERABLES Performing Organization Address City/State/ZIP Code Phon e Number [facility] [place] [address] [place] [facility] (ABNORMAL) CBC without Differential (04/12/2019 3:48 PM CDT) [facility] Method Time Signature Hemoglobin 11.0 (L) [...] Code Phon e Number [facility] [address] [place] [address] [place] [facility] HIV-1 p24 Ag, HIV-1/2 Ab [...] Code Phon e Number [facility] [address] [place], [place] [address], [place] [address] [facility] (TTE) 2D ECHO DOPPLER COLOR (04/12/2019 3:38 PM CDT) Patholo gist Method Time Signature Ejection Fraction 64 [...] effusion. For the complete report, see the [employer] Documents below. See PDF For Result Narrative [...] effusion. 7. No previous studies available for Ex[employer]. Procedure Note Derek Booth M.D. - 04/12/2019Form [...] effusion. 7. No previous studies available for Exan[employer]. Findings Bedside echo performed. Transthoracic ou treach [...] person on 04/12/2019 at approximately 1:[address] [facility] [address] Hernandez and Jose. Xin Vaughn M.D. IMG CT PROCEDURES CT Chest Angiogram and Pulmonary [...] Code Phon e Number [facility] [address] [place] [address] [place] [facility] (ABNORMAL) CMP (Comprehensive Metabolic Panel) (04/12/2019 1:19 PM CDT) athologist Signature Potassium, P 4.5 3.6 - [...] PM CDT eGFR-Black/Afri >90 >=60 04/12/2019 can [place] mL/min/BSA 1:49 PM CDT Comment: ----ADDITIONAL INFORMATION---- [...] Phon e Number [facility] [address] [place] [address] [place] [facility] (ABNORMAL) CBC with Differential, Blood (04/12/2019 1:19 PM CDT) [facility] Method Time Signature Hemoglobin 10.2 (L) [...] Code Phon e Number [facility] [place] [address] [place] [facility] Fibrinogen (04/12/2019 1:18 PM CDT) P athologist Signature Fibrinogen, P 496 187 - 513 04/12/2019 mg/dL 4:18 PM CDT Specimen Anatomical Collection Method Collection Time Receive d Time (Source) Location / / Volume Laterality Blood (Blood, 04/12/2019 1:18 PM 04/12/20 19 4:11 Venous) CDT PM CDT Xin Vaughn M.D. LAB BLOOD ADD-ON Performing Organization Address City/[facility]/ZIP Code Phon e Number [facility] [place] [place] [address] [place] [facility] PT (Prothrombin Time) with INR [...] Code Phon e Number [facility] [place] [place] [address] [facility] [facility] DX Abdomen Portable Anterior Posterior [...] . Xin Vaughn M.D. IMG DIAGNOSTIC IMAGING [facility] Pathology Services (04/12/2019 10:20 AM CDT) Component Value Ref Test Analysis Performed At [facility] Range Method Time Signature PATHOLOGY Patient Name: PUNEET CLAYTON [facility] MR#: [id number] [facility] Submitting Physician: XIN VAUGHN MD [id number] Specimen #[id number] Performing Lab: ??[facility] [place][note 2] ? [address] [place] [id number] Source: Placenta Gross Description Received is a [...] taken of the and maternal surfaces and client support representative sections are subm itted as follows: [...] Organization Address City/State/ZIP Code Phon e Number [address] [address] Testing Location (04/12/2019 9:42 AM CDT) P athologist Signature Testing [facility] DEFAULT 04/12/2019 Location 9:47 AM CDT Specimen Anatomical Collection Method Collection Time Receive d Time (Source) Location / / Volume Laterality Blood 04/12/2019 9:42 AM 9 9:47 CDT AM CDT Xin Vaughn M.D. LAB BLOOD BANK TEST ORDERABL ES Performing Organization Address City/State/ZIP Code Phon e Number [address] [address] [place] [facility] Type and Screen (with reflex Antibody [...] Code Phon e Number [facility] [address] [place] [address] [facility] [facility] Hepatitis B Surface Antigen (04/12/2019 [...] Code Phon e Number [facility] [address], [place] [id number] [place] [address] LAB HBc Total Ab, Serum (04/12/2019 9:41 [...] Vaughn M.D. LAB MICROBIOLOGY - BLOOD ORD [employer]ISA Performing Organization Address City/[facility]/ZIP Code Phon e Number [facility] [address] [facility] [place] [address] [facility] HBs Antibody, Serum (04/12/2019 9:41 AM [...] Xin Vaughn M.D. LAB MICROBIOLOGY - BLOOD [employer]ISA Performing Organization Address [facility] Phon e Number [facility] [address] [place], [place] [address] [address] [facility] documented in this encounter Visit Diagnoses [...] Between Units of Blood Products, Starting on Bryanna [...] 10, Starting on Bryanna 04/13/19 at 2046 Given 04/14/2019 9:00 AM CDT [...] (TYLENOL) 0247 (Given - Provider: Denise Aranda R.N.)0837 (Given - Provider: Shiela Bernal R.N.)1501 (Given - Provider: Shiela Bernal R.N.)2047 (Given - Provider: Marsha Enamorado R.N.) 0206 (Given - Provider: Marsha Enamorado R.N.)0854 (Given - Provider: Cornelia Ritchie R.N.)1454 (Given - Provider: Cornelia Ritchie R.N.)2158 (Given - Provider: Danya Herndon R.N.) 0452 (Given - Provider: Danya Herndon R.N. - Comment: was sleeping)1120 (Given - Provider: Cronelia Ritchie R.N.)1400 (Due) 1,000 mg, oral, Every [...] Minutes, Every 24 hours, First dose on Wed04/15/19 at 0815, For 1 dose, premix bag, [...] (Given - Prov ider: Marsha Enamorado R.N.) 4902 (Given - Provider: Prateek Herndon R.N. - [...] mg of calcium, oral, Every 2 hour RI N, indigestion, Starting Wed04/12/19 at 1356, Post-, [...] (See Alternative - Provider: Marsha Enamorado R.N.) 0049 (See Alternative - Provider: Marsha Enamorado R.N.)0434 [...] (TUCKS) 1 application, topical, 3 times daily RI N, irritation, or pain., Starting Wed04/12/19 at [...] 10, Starting on Bryanna 04/13/19 at 2046 documented in this encounter Additional Health Concerns Assessment Noted Time PHQ-9 Depression Total Score: 7 04/07/2017 9:39 AM CDT documented as of this encounter Care Teams Instructor Ground Services Relationship Specialty Start Date End Date Blaire Bundy PBrittaneyACory. PCP - General 02/04/17 04/26/19 documented as of this encounter
--- OUTSIDE RECORDS SUMMARY | 2022-07-17 08:06 | XMS_ITS | Encounter Summary ---
:1985 Author Organization [facility] Address [address] [place] [address] Care Team Providers Name Role Phone Blaire Bundy P.A.-C. Primary Care Provider Encounter Details Date Type Department Care Team Description 03/14/2018 Orders Only Department of Gloria Johnson High Risk Medication Orthopedic Surgery in [place] [facility] (Primary Dx) [place], [place] [address] FABIAN [address] [place] [phone] Social History Tobacco Use Types Packs/Day Years [...] How often do you attend mandaen or voodoo More than 4 time s [...] as of this encounter Care Teams Lead Sales Consultant Relationship Specialty Start Date End Date Blaire Bundy P.A.-C. PCP - General 02/04/17 04/26/19 documented as of this encounter
--- OUTSIDE RECORDS SUMMARY | 2022-07-17 08:06 | XMS_ITS | Encounter Summary ---
:1985 Author Organization [facility] Address [address] [place] [address] Care Team Providers Name Role Phone Blaire Bundy P.A.-C. Primary Care Provider [phone] Encounter Details Date Type Department Care Team Description 07/21/2018 Orders Only Department of Obstetrics Leonora Reaves A PRN, and Gynecology in [address] [address] [place] [address] [phone] Social History Tobacco Use Types Packs/Day Years [...] How often do you attend congregation or taoist More than 4 time s [...] documented as of this encounter Care Teams Nylon Operator Relationship Specialty Start Date End Date Blaire Bundy P.A.-C. PCP - General 02/04/17 04/26/19 documented as of this encounter
--- OUTSIDE RECORDS SUMMARY | 2022-07-17 08:06 | XMS_ITS | Encounter Summary ---
:1985 Author Organization [facility] Address [address] [place] [address] Care Team Providers Name Role Phone Blaire Bundy P.A.-C. Primary Care Provider [phone] Reason for Visit Reason Onset Date Comments assessment 07/01/2018 First call attempt Encounter Details Date Type Department Care Team Description 07/01/2018 Clinical Communication Department of Leonora Reaves Pr egnancy Obstetrics and JOSEFA C.N.PBrittaney assessment (First Gynecology in [address] call attem pt) [address] [phone] Social History Tobacco Use Types Packs/Day [...] How often do you attend orthodoxy or mormonism More than 4 time s [...] Maurice Ivey R.N. - 07/04/2018 8:40 AM CONTROLS DESIGNER Addended by: MAURICE IVEY on: 07/04/2018 08:40 AM Modules accepted: Orders ROLS DESIGNER Telephone Encounter - Maurice Ivey R.N. - 07/04/2018 8:36 AM CONTROLS DESIGNER If yes to any of the following [...] intercourse for two weeks before the procedure ROLS DESIGNER Telephone Encounter - Jayshree Morocho R.N. - 07/01/2018 2:39 PM CST Attempted to contact pt. Left message on identifiable VM to [facility] for more information ROLS DESIGNER Telephone Encounter - Tejal Arora - 07/01/2018 2:00 PM CST Dear Nurse, Patient is not on control and would like to have Nexplanon or an IUD placed. Is there a way you can call Carol and see if a test is needed, prior to appointment. Thank you, Te[employer]al [employer] ROLS DESIGNER documented in this encounter Plan of Treatment Not on filedocumented as of this encounter Results Test, POCT, Urine (lab) (07/20/2018 10:24 AM CONTROLS DESIGNER) P athologist Signature Negative 07/20/2018 [facility] Test, POCT, U 10:31 AM CONTROLS DESIGNER [facility] Specimen Anatomical Collection Method Collection Time Receive d Time (Source) Location / / Volume Laterality Urine (Urine, 07/20/2018 10:24 07/20/2018 Clean Catch) AM CONTROLS DESIGNER 10:24 AM CONTROLS DESIGNER Marisol Irving APRN C.N.P. LAB POCT ORDERABLES - DEVICE Performing Organization Address City/State/ZIP Code Phon e Number [facility] [address] [facility] [place] [address] [facility] documented in this encounter Visit Diagnoses Diagnosis Contraception Personal History - Primary documented in this encounter Additional Health Concerns Assessment Noted Time PHQ-9 Depression Total Score: 7 04/07/2017 9:39 AM CDT documented as of this encounter Care Teams Scalemaker Relationship Specialty Start Date End Date Blaire Bundy P.A.-C. PCP - General 02/04/17 04/26/19 documented as of this encounter
--- OUTSIDE RECORDS SUMMARY | 2022-07-17 08:06 | XMS_ITS | Encounter Summary ---
:1985 Author Organization [facility] Address [address] [place] [address] Care Team Providers Name Role Phone Blaire Bundy P.A.-C. Primary Care Provider [phone] Reason for Visit Auth/Cert Specialty Diagnoses / Procedures Referred By Contact Refer red To Contact Diagnoses Gallstone With Common Bile Duct Stone Procedures [facility] LAPAROSCOPY CHOLECYST W CHOLNG LAPAROSCOPIC CHOLECYSTECTOMY WITH CHOLANGIOGRAM Referral ID Status Reason Start Date Expiration Date Visits Requ ested Visits Authorized [id number] 1 1 Encounter Details Date Type Department Care Team Description 03/03/2018 Surgery [facility] MAIN OR Jaquan Monahan LAPAROSCOPIC [address] MICHELLE P, D.O. CHOLECYSTECTOMY POSSIBLE [place], [place] [address] CHOLANGIOGRAM [phone] [place] [address] Social History Tobacco Use Types [...] How often do you attend holiness or christian More than 4 time s [...] through Care Everywhere.Home Care Following Gallbladder Surgery (Croatian)documented in this encounter Medications at Time of [...] Role: * Jaquan Monahan D.O. - Primary Radar Engineering Teacher: Naye Stockton L.P.N. Anesthesia Type: General Pre-Operative [...] of these were recovered in the suction mail carrier. The gallbladder was placed in Endo-Catch bag [...] Name Type Priority Associated Diagnoses Order S [facility] General Surgery Outpatient Referral Routine Gallstone [...] Component Value Ref Test Analysis Performed At [facility] Range Method Time Signature PATHOLOGY Patient Name: PUNEET CLAYTONBrittaney [facility] MR#: [id number] [facility] Submitting Physician: JAQUAN MONAHAN DO [id number] Specimen #[id number] Performing Lab: ??[facility] ? [address] [facility] [address] Source: Gallbladder Clinical History/Pre-Op Gallstone with common [...] trabeculated. ??The mucosal wall measures 0.2 cm. ??Sap Payroll Consultant sections are submitted in cassette A1. KG/ps ?? Diagnosis Gallbladder, cholecystectomy: CHOLELITHIASIS. Electronically Signed By USAMA MALDONADO MD - 03/04/2018 pjs/03/04/2018 Specimen (Source) Anatomical Collection Method Collection Time Re ceived Time Location / / Volume Laterality Tissue 03/03/2018 9:54 AM (Gallbladder) CDT Jaquan Monahan D.O. LAB SURG PATH ORDERABLES Performing Organization Address City/State/ZIP Code Phon e Number [facility] [address] [place] [address] documented in this encounter Visit Diagnoses Diagnosis [...] Perri Cooper RRoverto) 2.5 mg, nebulization, Once, On Bryanna 03/03/18 [...] 843 (Given - Provider: Rosalee Desir APRN, STEWARD/STEWARDESS TOURIST CLASS) 500 mg, intravenous, at 200 mL/hr, Admin [...] (Rate/Dose Verify - Provider: Rosalee Desir APRN, STEWARD/STEWARDESS TOURIST CLASS)1019 (Anesthesia Volume Adjustment - Provider: Rosalee Desir [...] (SUBLIMAZE) 1050 (Given - Provider: Melany Lira RBrittaneyN.)1052 (Given - Provider: Melany Lira R.N.)1054 (Given [...] 1033, Drug Monitoring Program: Pharmacist [facility] medication order based on comorbities and indication. documented in this encounter Additional Health Concerns Assessment Noted Time PHQ-9 Depression Total Score: 7 04/07/2017 9:39 AM CDT documented as of this encounter Care Teams Yarn Worker Relationship Specialty Start Date End Date Blaire Bundy P.A.-C. PCP - General 02/04/17 04/26/19 documented as of this encounter
--- OUTSIDE RECORDS SUMMARY | 2022-07-17 08:07 | XMS_ITS | Encounter Summary ---
:1985 Author Organization [facility] Address [address] [place] [address] Care Team Providers Name Role Phone Blaire Bundy P.A.-C. Primary Care Provider [phone] Reason for Visit Reason Comments Dizziness Black or Bloody Stool Nausea Rapid Heart Rate Auth/Cert Specialty Diagnoses / Procedures Referred By Contact Refer red To Contact Diagnoses Calculus Of Bile Duct Without Cholangitis Or Cholecystitis With Obstruction Procedures [place] ERCP W BX ENDOSCOPIC RETROGRADE CHOLANGIOPANCREATOGRAPHY Referral ID Status Reason Start Date Expiration Date Visits Requ ested Visits Authorized [id number] 1 1 Encounter Details Date Type Department Care Team Description 11/11/2017 Surgery Department of Rubio Baker ESOPHAGOGAMoon TRODUODENOSCOPY Gastroenterology in Marko Marcos M.D. [address] [phone] Social History Tobacco Use Types Packs/Day Years [...] How often do you attend lutheran or anabaptism More than 4 time s [...] Primary Care Providers: Blaire Thornton P.A.-C. (General) [address] [place] [phone] Primary Care Provider Primary Care Provider Admission Date: 11/11/2017 Discharge Date: 11/12/2017 PRINCIPAL DIAGNOSIS Melena SECONDARY DIAGNOSES Active Problems: Hypovolemic Shock (HCC) Morbid obesity Resolved Problems: * No resolved hospital problems. * Operative Procedures: Scheduled (Blank), Completed (Comp) or Canceled (Can) Case IDs Date Procedure Surgeon Location Status [id number] 11/11/17 ESOPHAGOGASTRODUODENOSCOPY Rubio Baker M.D. [facility] [...] unit of blood. Coordinated care with [facility] in [place]. Patient will be transferred via ambulance to GI service under care of Dr. Cassidy Quiorz. CONSULTS ORDERED DURING THIS ADMISSION IP CONSULT [...] decisions. FOLLOW UP APPOINTMENTS: Transfer to [facility] TEST RESULTS PENDING AT DISCHARGE: None. [...] bleeding and would like to transfer to [place]. Still gets winded with any movement. OBJECTIVE [...] ERCPist to treat this. Will transfer to [place] this morning. NPO. Discussed case with Dr. [...] APPENDECTOMY N/A 09/08/2017 Procedure: LAPAROSCOPIC APPENDECTOMY; Surgeon: dEd Moeller D.O.; Location: [facility] [...] 3:51 PM CDTAssociated Order(s): UPPER GI ENDOSCOPY [facility] [place] [facility] Patient Name: Carol Cooley Procedure Date: [...] specimens collected. Recommendation: - After discussing with [place], as she has achieved some hemostasis, will observe. - Continue Protonix 40 mg IV BID. - Minimal clear liquids are OK. - If she continues to significantly bleed, and certainly if she becomes unstable, then will plan on transferring to [place] for further therapy. Findings: The esophagus was [...] To 59.9 Adult ([facility]) ??? Abuse Tobacco Smoking ??? Migraine Headache [...] - 11/12/2017 9:26 AM CDT Transfer to [place] report given to Don Gabrielle Nguyen R.N. - 11/12/2017 9:22 AM CDT Goals: Clinical Goals for the Shift: reduce heart rate; improve hemoglobin level Identify possible barriers to meeting goals/advancing plan of care: none Stability of the patient: Moderately Stable - Low risk of patient condition declining or worsening End of Shift Summary: pt to transfer to [facility] Marcus Mata R.N. - 11/12/2017 5:12 AM CDT Goals: Clinical Goals for the Shift: reduce heart rate; improve hemoglobin level Identify possible barriers to meeting goals/advancing plan of care: melena; hypovolemic shock Stability of the patient: Moderately Unstable - Medium risk of patient condition declining or worsening End of Shift Summary: HR has improved over the duration of this shift supervisor melting; initially HR was 130-140, now HR is [...] with her family history of CAD and [place] as well as her recent surgery and [...] 11/11/2017 12:29 PM CDT Cells, 1 Units documented as of this encounter Procedures Procedure [...] Hemoglobin 7.6 (L) 11.6 - 15.0 11/12/2017 [facility] g/dL 5:47 AM CDT [facility] Specimen Anatomical Collection Method Collection Time Receive d Time (Source) Location / / Volume Laterality Blood (Blood, 11/12/2017 5:40 AM 11/13/19 18 5:45 Venous) CDT AM CDT Carson Lopez APRN, C.N.P. LAB BLOOD ADD-ON Performing Organization Address City/State/ZIP Code Phon e Number [facility] [address] [place] [address] [facility] (ABNORMAL) Hemoglobin (11/12/2017 12:21 AM CDT) P athologist Signature Hemoglobin 8.9 (L) 11.6 - 15.0 11/12/2017 [facility] g/dL 12:24 AM CDT [facility] Specimen Anatomical Collection Method Collection Time Receive d Time (Source) Location / / Volume Laterality Blood (Blood, 11/12/2017 12:21 11/12/2017 Venous) AM CDT 12:21 AM CDT Kendal Santacruz APRNNLebron. LAB BLOOD ADD-ON Performing Organization Address City/State/ZIP Code Phon e Number [facility] [address] [place] [address] [facility] Transfuse Red Blood Cells (11/11/2017 10:52 PM CDT) Kaye Grimes APRN, C.N.P., M.S.N. BLOOD TRANSFUSION O RDERABLES Transfuse Red Blood Cells : , 1 Units (11/11/2017 10:52 PM CDT) Kendal Boudreaux APRNN.P., M.S.N. BLOOD TRANSFUSION O RDERABLES (ABNORMAL) Hemoglobin (11/11/2017 6:15 PM CDT) P athologist Signature Hemoglobin 8.7 (L) 11.6 - 15.0 11/11/2017 [facility] g/dL 6:21 PM CDT [facility] Specimen Anatomical Collection Method Collection Time Receive d Time (Source) Location / / Volume Laterality Blood (Blood, 11/11/2017 6:15 PM 11/12/19 18 6:19 Venous) CDT PM CDT Kendal Santacruz APRNNLebron. LAB BLOOD ADD-ON Performing Organization Address City/State/ZIP Code Phon e Number [facility] [address] [place] [address] [facility] Transfuse Red Blood Cells (11/11/2017 [...] 11/11/2017 3:5 1 PM CDT [facility] [place] [facility] Patient Name: Carol Cooley Procedure Date: [...] specimens collected. Recommendation: - After discussing with [place], as s he has achieved some hemostasis, will observe. - Continue Protonix 40 mg IV BID. - Minimal clear liquids are OK. - If she continues to significantly ble ed, and certainly if she becomes unstable, then will plan on transferrin g to [place] for further therapy. Findings: The esophagus was [...] Sedation: Anesthesia was administered by an anest doraia professional. The following parameters were monitored: oxygen [...] Signature Prothrombin 9.4 8.8 - 11.9 11/11/2017 [facility] Time, P sec 12:58 PM CDT [facility] INR 0.9 0.9 - 1.2 11/11/2017 [facility] 12:58 PM CDT [facility] Comment: Standard intensity warfarin therapeutic range: 2.0 to 3.0 High intensity warfarin therapeutic rang e: 2.5 to 3.5 Specimen Anatomical Collection Method Collection Time Receive d Time (Source) Location / / Volume Laterality Blood (Blood, 11/11/2017 12:39 11/11/2017 Venous) PM CDT 12:42 PM CDT Nuno Love M.D. LAB BLOOD ADD-ON Performing Organization Address City/State/ZIP Code Phon e Number [facility] [address] [place] [address] [facility] Lactate (11/11/2017 12:39 PM CDT) P athologist Signature Lactate, P 2.1 0.6 - 2.3 11/11/2017 [facility] mmol/L 12:59 PM CDT [facility] Specimen Anatomical Collection Method Collection Time Receive d Time (Source) Location / / Volume Laterality Blood (Blood, 11/11/2017 12:39 11/11/2017 Venous) PM CDT 12:42 PM CDT Nuno Love M.D. LAB BLOOD NON ADD-ON Performing Organization Address City/State/ZIP Code Phon e Number [facility] [address] [place] [address] [facility] documented in this encounter Visit [...] 45 (New Bag - Provider: Cammie Schuster RRoverto)1354 (Stopped - Provider: Cammie Schuster R.N.) 1,000 mL, intravenous, Once, On Bryanna 11/11/17 at 1253, For 1 dose ondansetron (PF) injection 4 mg (for_ZOFRAN) (COMPLETED) 0025 (Given - Provider: Marcus Mata R.N.) 4 mg, intravenous, Once, On Bryanna 18 at 2315, For 1 dose pantoprazole injection 40 mg (for_PROTONIX) (COMPLETED) 1327 (Given - Provider: Cammie Schusetr R.N.) 40 mg, intravenous, Once, On Bryanna 18 at 1309, For 1 dose, Administer IV push over 2 minutes. Add 10 mL NS to 40 mg vial for a final concentration of 4 mg/mL. pantoprazole injection 40 mg (for_PROTONIX) 1608 (OCT Hold - Provider: Transfer Provider, Automatic - Reason: Patient not available)1735 (OCT Unhold - Provider: Transfer Provider, Automatic)2031 (Given [...] RBrittaneyNBrittaney)1744 (New Bag - Provider: Todd Valadez RBrittaneyNBrittaney) 0025 (New Bag - Provider: Marcus Mata R.N.)0553 (Due) 125 mL/hr, intravenous, Continuous, Starting on Bryanna 11/11/17 at 1 253 PRN Medication Order 11/10/2017 11/11/2017 11/12/2017 EPINEPHrine injection (for_ADRENALIN) (COMPLETED) 1653 (Given - Provider: Melany Lira RBrittaneyN. - Comment: injected submucousal to bleeding site) Code/trauma/sedation medication, Starting on Bryanna 11/11/17 at 1653 fentaNYL injection (for_SUBLIMAZE) (COMPLETED) 1618 (Given - Provider: Melany Lira RBrittaneyN.) intravenous, Code/trauma/sedation medication, Starting on Bryanna at [...] 1254 (Gi pablo - Provider: Cammie Schuster RBrittaneyNBrittaney)1608 ([facility] Hold - Provider: Transfer Provider, Automatic - Reason: Patient not available)1735 ([facility] Unhold - Provider: Transfer Provider, Automatic)2032 (Given - Provider: Ruben AyonNBrittaney) 0830 (Given - Provider: Ruben HamlinNBrittaney)0903 (Given - Provider: Gabrielle Nguyen R.N.) 10 mL, intravenous, As needed, line care , Starting on Bryanna 11/11/17 at 1230, Peripheral Intravenous Catheter and Rapid Infusion Catheter, prior to blood sampling, post blood transfusion or post blood sampling sodium chloride injection 3 mL 1608 ([facility] Hold - Provider: Transfer Provider, Automatic - Reason: Patient not available)1735 ([facility] Unhold - Provider: Transfer Provider, Automatic) 3 mL, intravenous, As needed, line care, Starting on Bryanna 11/11/17 at 1230, Prior to and following infusion and between multiple consecutive infusions: sodium chloride 0.9 % injection documented in this encounter Additional Health Concerns Assessment Noted Time PHQ-9 Depression Total Score: 7 04/07/2017 9:39 AM CDT documented as of this encounter Care Teams Hydrologic Modeler Relationship Specialty Start Date End Date Blaire Bundy P.A.-C. PCP - General 02/04/17 04/26/19 documented as of this encounter
--- OUTSIDE RECORDS SUMMARY | 2022-07-17 08:07 | XMS_ITS | Encounter Summary ---
:1985 Author Organization [facility] Address [address] [place] [address] Care Team Providers Name Role Phone Blaire Bundy P.A.-C. Primary Care Provider [phone] Reason for Visit Reason Comments Communication [facility] Hospital follow up Encounter Details Date Type Department Care Team Description 11/15/2017 Clinical Department of Suellen Beasley on ([facility] Communication Family Medicine, R, R.N. Hospital follow up) [place] [address] Clinic, in [address] [phone] [facility] [phone] [place], [place] (Work) [phone] Social History Tobacco Use [...] How often do you attend sabianism or evangelical More than 4 time s [...] to pay for the very basics like Q-go hat hard 07/09/2020 food, housing, medical care, [...] documented as of this encounter Care Teams Cull Grader Relationship Specialty Start Date End Date Blaire Bundy P.A.-C. PCP - General 02/04/17 04/26/19 documented as of this encounter
--- OUTSIDE RECORDS SUMMARY | 2022-07-17 08:07 | XMS_ITS | Encounter Summary ---
:1985 Author Organization [facility] Address [address] [place] [address] Care Team Providers Name Role Phone Blaire Bundy P.A.-C. Primary Care Provider [phone] Reason for Visit Auth/Cert Specialty Diagnoses / Procedures Referred By Contact Refer red To Contact Diagnoses Gallstone With Common Bile Duct Stone Procedures [facility] LAPAROSCOPY CHOLECYST W CHOLNG LAPAROSCOPIC CHOLECYSTECTOMY WITH CHOLANGIOGRAM Referral ID Status Reason Start Date Expiration Date Visits Requ ested Visits Authorized [id number] 1 1 Encounter Details Date Type Department Care Team Description 03/03/2018 Anesthesia Event [facility] MAIN OR Matthew Plascencia M.D. [address] [facility] [address] [facility] [place] [address] [address] [place] [phone] (Wo rk) Anesthesia Record Procedure Summary [...] dermabond; Antionette Cooper CRT, R.N. [facility] WND ADH NEONAT 2X3.75 d, Schedul [...] 1015 by Placement Time: 0837 Rosalee Xiong, MANGANESE WHEELER, Rosalee Xiong, MANGANESE WHEELER, (created via procedure RADIO DESPATCHER RADIO DESPATCHER documentation); Mask Ventilation: Oral/Nasal airway needed; Type: Standard ETT; Single Lumen Tube Size: 7 mm; Cuffed: Yes; Location: Oral; Removal Date: 03/03/18; Removal Time: 1015 (RETIRED) Incision 03/03/18; 952; Abdomen; 03/03/18 0953 by 1418 by Darius Coyle CRT, R.N. May [id number] GZ STRL 8PLY 2X2; d, Scheduling 05/13/21 (Removed by Automated B [facility] Job background completion utility); 1418 (Removed [...] How often do you attend scientology or advent More than 4 time s [...] Date: 03/03/18 Room / Location: OR 03 [facility] 1404 / [facility] OR Anesthesia Start: 826 Anesthesia Stop: 1022 [...] patient / legal guardian, or through an manufacturing controls engineer; patient evaluated and approved for anesthesia / [...] event: no complications Procedure Note Rosalee Xiong, JOSEFA, RADIO DESPATCHER - 03/03/2018 8 :54 AM CDT Airway [...] CDT 30 mg As needed, Starting on Byranna 03/03/18 at 0835, Anesthesia Intra-op Given 03/03/2018 [...] documented as of this encounter Care Teams Auto Roller Relationship Specialty Start Date End Date Blaire Bundy P.A.-C. PCP - General 02/04/17 04/26/19 documented as of this encounter
--- OUTSIDE RECORDS SUMMARY | 2022-07-17 08:07 | XMS_ITS | Encounter Summary ---
:1985 Author Organization [facility] Address [address] [place] [address] Care Team Providers Name Role Phone Blaire Bundy P.A.-C. Primary Care Provider Encounter Details Date Type Department Care Team Description 11/12/2017 - Hospital Encounter HX RST Cassidy Sandhu, 11/13/2017 Sera, M.S. [address] [place] [phone] (Wo rk) Social History Tobacco Use Types [...] How often do you attend hoahaoism or hindu More than 4 time s [...] Differential (11/13/2017 7:23 AM CDT) [facility] Method Time Signature Hemoglobin 8.2 (L) 12.0 - [facility] 15.5 G/DL LABORATORIES - [facility] Hematocrit 26.0 (L) 34.9 - [facility] 44.5 % LABORATORIES [facility] RBC Distrib 15.2 11.9 - [facility] Width 15.5 % LABORATORIES [facility] Platelet Count 229 150 - 450 [facility] X10(9)/L LABORATORIES [facility] Leukocytes 10.1 3.5 - [facility] 10.5 LABORATORIES - X10(9)/L [facility] Neutrophils 7.11 (H) 1.70 - [facility] 7.00 LABORATORIES - X10(9)/L [facility] Lymphocytes 2.38 0.90 - [facility] 2.90 LABORATORIES - X10(9)/L [facility] Monocytes 0.52 0.30 - [facility] 0.90 LABORATORIES - X10(9)/L [facility] Erythrocytes 2.93 (L) 3.90 - [facility] 5.03 LABORATORIES - X10(12)/L [facility] MCV 88.7 81.6 - [facility] 98.3 FL LABORATORIES - [facility] Eosinophils 0.03 (L) 0.05 - [facility] 0.50 LABORATORIES - X10(9)/L [facility] Basophils <0.03 0.00 - [facility] 0.30 LABORATORIES - X10(9)/L [facility] Specimen Anatomical Collection Method Collection Time Receive d Time (Source) Location / / Volume Laterality 11/13/2017 7:23 AM 8 7:23 CDT AM CDT Historical Provider LAB BLOOD ADD-ON Performing Organization Address City/State/ZIP Code Phon e Number [facility] LABORATORIES - [address] [place], [place] [address] [facility] (ABNORMAL) CBC with Differential (11/12/2017 7:48 PM CDT) [facility] gist Method Time Signature Hemoglobin 8.6 (L) 12.0 - [facility] 15.5 G/DL LABORATORIES - [facility] Hematocrit 26.2 (L) 34.9 - [facility] 44.5 % LABORATORIES - [facility] Erythrocytes 3.04 (L) 3.90 - [facility] 5.03 LABORATORIES - X10(12)/L [facility] MCV 86.2 81.6 - [facility] 98.3 [place] LABORATORIES - [facility] RBC Distrib 15.0 11.9 - [facility] Width 15.5 % LABORATORIES - [facility] Platelet Count 210 150 - 450 [facility] X10(9)/L LABORATORIES - [facility] Leukocytes 10.3 3.5 - [facility] 10.5 LABORATORIES - X10(9)/L [facility] Neutrophils 9.08 (H) 1.70 - [facility] 7.00 LABORATORIES - X10(9)/L [facility] Lymphocytes 1.03 0.90 - [facility] 2.90 LABORATORIES - X10(9)/L [facility] Monocytes 0.17 (L) 0.30 - [facility] 0.90 LABORATORIES - X10(9)/L [facility] Eosinophils <0.03 (L) 0.05 - [facility] 0.50 LABORATORIES - X10(9)/L [facility] Basophils <0.03 0.00 - [facility] 0.30 LABORATORIES - X10(9)/L [facility] Specimen Anatomical Collection Method Collection Time Receive d Time (Source) Location / / Volume Laterality 11/12/2017 7:48 PM 8 7:48 CDT PM CDT Venu Fernandez M.D., M.S. LAB BLOOD ADD-ON Performing Organization Address [facility] Phon e Number [facility] LABORATORIES - [address] [place], [place] [address] [facility] ABORh, RBC (11/12/2017 11:55 AM CDT) P athologist Signature HXABO/RH BLOOD A NEG [facility] TYPE LABORATORIES - [facility] Specimen (Source) Anatomical Collection Method Collection Time Re ceived Time Location / / Volume Laterality 11/12/2017 11:55 AM CDT Historical Provider LAB BLOOD BANK TEST ORDERABL ES Performing Organization Address [facility] Phon e Number [facility] LABORATORIES - [address] [place], [place] [address] [facility] Antibody Screen, RBC (11/12/2017 11:55 AM CDT) Patholo gist Method Time Signature Antibody Negative [facility] Screen LABORATORIES - [facility] Specimen (Source) Anatomical Collection Method Collection Time Re ceived Time Location / / Volume Laterality 11/12/2017 11:55 AM CDT Historical Provider LAB BLOOD BANK TEST ORDERABL ES Performing Organization Address [facility] Phon e Number [facility] LABORATORIES - [address] [place], [place] [address] [facility] Calcium, Ionized (11/12/2017 11:42 AM CDT) P athologist Signature Calcium, 4.93 4.57 - [facility] Ionized, S 5.43 MG/DL LABORATORIES - [facility] Comment: ? ADDITIONAL INFORMATIO N ? This test has been modified from the man mackr's ? instructions. Its performance characteri stics were ? determined by [facility] in a manner co nsistent with ? CLIA requirements. This test has not bee n cleared or ? approved by the U.S. Food and Drug Admin istration. ? pH 7.42 7.35 - 7.48 [facility] LABORA TORIES - [facility] Specimen Anatomical Collection Method Collection Time Receive d Time (Source) Location / / Volume Laterality 11/12/2017 11:42 11/12/2017 AM CDT 11:42 AM CDT Venu Fernandez M.D., M.S. LAB BLOOD NON ADD-ON Performing Organization Address City/[facility] Code Phon e Number [facility] LABORATORIES - [address] [place] [phone] [facility] (ABNORMAL) ALT (Alanine Aminotransferase) (11/12/2017 11:42 AM CDT) Component Value Ref Test Analysis Performed At [facility] gist Range Method Time Signature Alanine 212 (H) 7 - 45 [facility] Aminotransferase U/L LABORATORIES - (ALT), S [facility] Specimen Anatomical Collection Method Collection Time Receive d Time (Source) Location / / Volume Laterality 11/12/2017 11:42 11/12/2017 AM CDT 11:42 AM CDT Venu Fernandez M.D., M.S. LAB BLOOD ADD-ON Performing Organization Address City/[facility] Phon e Number [facility] LABORATORIES - [address] [place] [phone] [facility] BMP (Basic Metabolic Panel) (11/12/2017 11:42 AM CDT) Analysis Performed At [facility] logist Time Signature Sodium, P 141 135 - 145 [facility] MMOL/L LABORATORIES - [facility] Potassium, P 4.0 3.6 - 5.2 [facility] MMOL/L LABORATORIES - [facility] eGFR >60 >60 [facility] Non-Black/Afric ML/MIN/BSA LABORATORIES - [facility] eGFR >60 >60 [facility] Black/ ML/MIN/BSA LABORATORIES - [facility] BUN (Blood Urea 11 6 - 21 [facility] Nitrogen), S MG/DL LABORATORIES - [facility] HX Bicarbonate, 23 22 - 29 [facility] P/S MMOL/L LABORATORIES - [facility] Glucose, S 102 70 - 140 [facility] MG/DL LABORATORIES - [facility] Anion Gap 12 7 - 15 [facility] LABORATORIES - [facility] Chloride, S 106 98 - 107 [facility] MMOL/L LABORATORIES - [facility] Creatinine 0.7 0.6 - 1.1 [facility] MG/DL LABORATORIES - [facility] eGFR >60 >60 [facility] Non-Black/Afric ML/MIN/BSA LABORATORIES - an Malaysian [facility] eGFR-Black/Afri >60 >60 [facility] can Malaysian ML/MIN/BSA LABORATORIES - [facility] Creatinine 0.7 0.6 - 1.1 [facility] MG/DL LABORATORIES - [facility] Specimen Anatomical Collection Method Collection Time Receive d Time (Source) Location / / Volume Laterality 11/12/2017 11:42 11/12/2017 AM CDT 11:42 AM CDT Venu Fernandez M.D., M.S. LAB BLOOD ADD-ON Performing Organization Address City/[facility] Code Phon e Number [facility] LABORATORIES - [address] (ABNORMAL) CBC without Differential (11/12/2017 11:42 AM CDT) Patholo gist Method Time Signature Hemoglobin 9.8 (L) 12.0 - [facility] 15.5 G/DL LABORATORIES - [facility] Hematocrit 29.8 (L) 34.9 - [facility] 44.5 % LABORATORIES - [facility] Erythrocytes 3.42 (L) 3.90 - [facility] 5.03 LABORATORIES - X10(12)/L [facility] MCV 87.1 81.6 - [facility] 98.3 FL [facility] - [facility] RBC Distrib 15.0 11.9 - [facility] Width 15.5 % [facility] - [facility] Platelet Count 229 150 - 450 [facility] X10(9)/L [facility] Leukocytes 13.2 (H) 3.5 - [facility] 10.5 LABORATORIES - X10(9)/L [facility] Specimen Anatomical Collection Method Collection Time Receive d Time (Source) Location / / Volume Laterality 11/12/2017 11:42 11/12/2017 AM CDT 11:42 AM CDT Venu Fernandez M.D., M.S. LAB BLOOD ADD-ON Performing Organization Address City/State/ZIP Code Phon e Number [facility] LABORATORIES - [address] [place] [phone] [facility] Phosphorus Inorganic (11/12/2017 11:42 AM CDT) Analysis Performed At Patho logist Time Signature Phosphorus 2.6 2.5 - 4.5 [facility] (Inorganic), S MG/DL LABORATORIES [facility] Specimen Anatomical Collection Method Collection Time Receive d Time (Source) Location / / Volume Laterality 11/12/2017 11:42 11/12/2017 AM CDT 11:42 AM CDT Venu Fernandez M.D., M.S. LAB BLOOD ADD-ON Performing Organization Address City/[facility]/ZIP [facility] Phon e Number [facility] LABORATORIES - [address] [place] [address] [facility] Bilirubin, Total (11/12/2017 11:42 AM CDT) P athologist Signature Bilirubin, 0.8 <=1.2 [facility] Total, S MG/DL [facility] Specimen Anatomical Collection Method Collection Time Receive d Time (Source) Location / / Volume Laterality 11/12/2017 11:42 11/12/2017 AM CDT 11:42 AM CDT Venu Fernandez M.D., M.S. LAB BLOOD ADD-ON Performing Organization Address City/[facility]/ZIP Code Phon e Number [facility] LABORATORIES - [address] [place] [address] [facility] Magnesium (11/12/2017 11:42 AM CDT) P athologist Signature Magnesium, S 1.9 1.7 - 2.3 [facility] MG/DL [facility] Specimen Anatomical Collection Method Collection Time Receive d Time (Source) Location / / Volume Laterality 11/12/2017 11:42 11/12/2017 AM CDT 11:42 AM CDT Venu Fernandez M.D., M.S. LAB BLOOD ADD-ON Performing Organization Address City/State/ZIP Code Phon e Number [facility] LABORATORIES - [address] [place] [address] [facility] Bilirubin, Direct (11/12/2017 11:42 AM CDT) P athologist Signature Bilirubin, 0.2 0.0 - 0.3 [facility] Direct, S MG/DL [facility] Specimen Anatomical Collection Method Collection Time Receive d Time (Source) Location / / Volume Laterality 11/12/2017 11:42 11/12/2017 AM CDT 11:42 AM CDT Venu Fernandez M.D., M.S. LAB BLOOD ADD-ON Performing Organization Address City/[facility]/ZIP Code Phon e Number [facility] LABORATORIES - [address] AST (Aspartate Aminotransferase) (11/12/2017 11:42 AM CDT) P athologist Signature AST, Total, S 22 8 - 43 U/L [facility] Specimen Anatomical Collection Method Collection Time Receive d Time (Source) Location / / Volume Laterality 11/12/2017 11:42 11/12/2017 AM CDT 11:42 AM CDT Venu Fernandez M.D., M.S. LAB BLOOD ADD-ON Performing Organization Address City/[facility]/ZIP Code Phon e Number [facility] LABORATORIES - [address] [place] [address] [facility] Alkaline Phosphatase (11/12/2017 11:42 AM CDT) athologist Signature Alkaline 92 37 - 98 [facility] Phosphatase, S U/L [facility] Specimen Anatomical Collection Method Collection Time Receive d Time (Source) Location / / Volume Laterality 11/12/2017 11:42 11/12/2017 AM CDT 11:42 AM CDT Venu Fernandez M.D., M.S. LAB BLOOD ADD-ON Performing Organization Address City/[facility]/ZIP Code Phon e Number [facility] - [address] documented in this encounter Visit Diagnoses Not on filedocumented in this encounter Additional Health Concerns Assessment Noted Time PHQ-9 Depression Total Score: 7 04/07/2017 9:39 AM CDT documented as of this encounter Care Teams Fountain Dispenser Relationship Specialty Start Date End Date Blaire Bundy P.A.-C. PCP - General 02/04/17 04/26/19 documented as of this encounter
--- OUTSIDE RECORDS SUMMARY | 2022-07-17 08:07 | XMS_ITS | Encounter Summary ---
:1985 Author Organization [facility] Address [address] [place] [address] Care Team Providers Name Role Phone Blaire Bundy P.A.-C. Primary Care Provider [phone] Reason for Referral Outpatient (Routine) - Closed Specialty Diagnoses / Procedures Referred By Contact Refer red To Contact Diagnoses Gallstone With Common Bile Duct Stone Edd Moeller D.O. [facility] [address] [address] Referral ID Status Reason Start Date Expiration Date Visits Requ ested Visits Authorized [id number] Closed 02/09/2018 02/09/2019 1 1 Reason for Visit Reason Comments Cholelithiasis Outpatient (Routine) - Closed Specialty Diagnoses / Procedures Referred By Contact Refer red To Contact General Surgery Diagnoses Gallstone With Common Bile Duct Stone Blaire Bundy [facility] [place] doyle P.A.-C. [address] [employer], [place] [address] Referral ID Status Reason Start Date Expiration Date Visits V isits Requested Authorized [id number] Closed Specialty 11/19/2017 05/18/2018 1 1 Services Required Encounter Details Date Type Department Care Team Description 02/09/2018 Comprehensive Visit Department of Juan Moeller Posthemorrhagic Acute (Primary Dx); General Surgery in Edd Gomez, Gallstone With Common Bile Duct Stone Marko Maxwell D.O. [address] [facility] [address] [address] MARKO [place] [phone] Social History Tobacco Use Types Packs/Day Years [...] How often do you attend mandaeism or mormon More than 4 time s [...] She denies alcohol use. She works at [employer]. OBJECTIVE PHYSICAL EXAMINATION General: Ms. Cooley is [...] scheduled in the near future. Job ID: [id number] documented in this encounter Plan of Treatment Scheduled Referrals Name Type Priority Associated Order Schedule Diagnoses Pre Operative Outpatient Referral Routine Gallstone With Expec pipe: Evaluation RAY nurse Common Bile Duct consult (clinic) Stone (Approximat e), Expires: 02/09/2021 documented as of this encounter Results (ABNORMAL) CBC with Differential, Blood (02/18/2018 10:42 AM CDT) [facility] Method Time Signature Hemoglobin 11.3 (L) 11.6 - 02/18/2018 [facility] 15.0 g/dL 10:54 AM [facility] Hematocrit 37.3 35.5 - 02/18/2018 [facility] 44.9 % 10:54 AM T [facility] Erythrocytes 4.95 3.92 - 02/18/2018 [facility] 5.13 10:54 AM [facility] x10(12)/L [facility] MCV 75.4 (L) 78.2 - 02/18/2018 [facility] 97.9 fL 10:54 AM [facility] RBC Distrib Width 15.3 12.2 - 02/18/2018 [facility] 16.1 % 10:54 AM [facility] Platelet Count 285 157 - 371 02/18/2018 [facility] x10(9)/L 10:54 AM [facility] Leukocytes 7.0 3.4 - 9.6 02/18/2018 [facility] x10(9)/L 10:54 AM [facility] Neutrophils 4.71 1.56 - 02/18/2018 [facility] 6.45 10:54 AM CDT HEALTH x10(9)/L [facility] [place] [facility] Lymphocytes 1.76 0.95 - 02/18/2018 [facility] 3.07 10:54 AM CDT HEALTH x10(9)/L [facility] [place] [facility] Monocytes 0.35 0.26 - 02/18/2018 [facility] 0.81 10:54 AM CDT HEALTH x10(9)/L [facility] [place] [facility] Eosinophils 0.18 0.03 - 02/18/2018 [facility] 0.48 10:54 AM CDT HEALTH x10(9)/L [facility] [place] [facility] Basophils 0.03 0.01 - 02/18/2018 [facility] 0.08 10:54 AM CDT HEALTH x10(9)/L [facility] [place] [facility] Specimen Anatomical Collection Method Collection Time Receive d Time (Source) Location / / Volume Laterality Blood (Blood, 02/18/2018 10:42 02/18/2018 Venous) AM CDT 10:46 AM CDT Edd Moeller D.O. LAB BLOOD ADD-ON Performing Organization Address City/State/[facility] Code Phon e Number [facility]- [id number] [place] [address] [facility] documented in this encounter Visit Diagnoses Diagnosis Anemia Posthemorrhagic Acute (Blood Loss Anemia) - Primary Gallstone With Common Bile Duct Stone documented in this encounter Additional Health Concerns Assessment Noted Time PHQ-9 Depression Total Score: 7 04/07/2017 9:39 AM CDT documented as of this encounter Care Teams Nonprofit Fundraiser Relationship Specialty Start Date End Date Blaire Bundy PBrittaneyACory. PCP - General 02/04/17 04/26/19 documented as of this encounter
--- OUTSIDE RECORDS SUMMARY | 2022-07-17 08:07 | XMS_ITS | Encounter Summary ---
:1985 Author Organization [facility] Address [address] [place] [address] Care Team Providers Name Role Phone Blaire Bundy P.A.-C. Primary Care Provider [phone] Encounter Details Date Type Department Care Team Description 02/09/2018 Clinical Communication Department of General Aline Dunbar Surgery in [place], L, L.P.[address] [phone] Social History Tobacco Use Types Packs/Day Years [...] How often do you attend druze or roman catholic More than 4 time [...] as of this encounter Care Teams Animal Care Technician Relationship Specialty Start Date End Date Blaire Bundy P.A.-C. PCP - General 02/04/17 04/26/19 documented as of this encounter
--- OUTSIDE RECORDS SUMMARY | 2022-07-17 08:07 | XMS_ITS | Encounter Summary ---
:1985 Author Organization [facility] Address [address] [place] [address] Care Team Providers Name Role Phone Blaire Bundy P.A.-C. Primary Care Provider [phone] Reason for Referral Outpatient (Routine) - Closed Specialty Diagnoses / Procedures Referred By Contact Refer red To Contact General Surgery Diagnoses Calculus Of Bile Duct Without Cholangitis Or Cholecystitis With Obstruction par review Edd Moeller[facility] Procedures RAY D.O. [address] [place] [address] Referral ID Status Reason Start Date Expiration Date Visits Requ ested Visits Authorized [id number] Closed 02/11/2018 02/11/2019 1 1 Encounter Details Date Type Department Care Team Description 02/11/2018 Orders Only Department of General Keo, Lydia Ca lculus Of Bile Duct Surgery in [facility] A, C.M.A. Without Cholangitis Or [place] [address] [facility]olecy[facility]is With [address] [place], [place] Obstruction ([place] [address] Dx) [phone] Social History Tobacco Use Types [...] How often do you attend druze or latter-day More than 4 time s [...] documented as of this encounter Care Teams Bulk Mail Clerk Relationship Specialty Start Date End Date Blaire Bundy P.A.-C. PCP - General 02/04/17 04/26/19 documented as of this encounter
--- OUTSIDE RECORDS SUMMARY | 2022-07-17 08:07 | XMS_ITS | Encounter Summary ---
:1985 Author Organization [facility] Address [address] [place] [address] Care Team Providers Name Role Phone Blaire Bundy P.A.-C. 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 [address] [place] [address] Radha (Primary Dx); 11/12/2017 Encounter Hospital, [place] Taryn Helm M.D. [address] [place] [address] Hypovolemic Shock (HCC); [facility] Third Floor [address] [place] [address] Social History Tobacco Use Types [...] How often do you attend restoration or pentecostalism More than 4 time s [...] Taryn Ozuna M.D. Primary Care Providers: Blaire Tohrnton P.A.-C. (General) [address] [place] [phone] Primary Care Provider Primary Care Provider Admission Date: 11/11/2017 Discharge Date: 11/12/2017 PRINCIPAL DIAGNOSIS Melena SECONDARY DIAGNOSES Active Problems: Hypovolemic Shock (HCC) Morbid obesity Resolved Problems: * No resolved hospital problems. * Operative Procedures: Scheduled (Blank), Completed (Comp) or Canceled (Can) Case IDs Date Procedure Surgeon Location Status [id number] 11/11/17 ESOPHAGOGASTRODUODENOSCOPY Rubio Baker M.D. [place] [...] 1/3 unit of blood. Coordinated care with [facility] in [place]. Patient will be transferred via ambulance to [...] own decisions. FOLLOW UP APPOINTMENTS: Transfer to [facility] TEST RESULTS PENDING AT DISCHARGE: None. [...] bleeding and would like to transfer to [place]. Still gets winded with any movement. OBJECTIVE [...] ERCPist to treat this. Will transfer to [place] this morning. NPO. Discussed case with Dr. [...] 3:51 PM CDTAssociated Order(s): UPPER GI ENDOSCOPY [facility] [place] [facility] Patient Name: Carol Cooley Procedure Date: [...] unstable, then will plan on transferring to [place] for further therapy. Findings: The esophagus was [...] - 11/12/2017 9:26 AM CDT Transfer to [place] report given to Don Gabrielle Nguyen R.N. - 11/12/2017 9:22 AM CDT Goals: Clinical Goals for the Shift: reduce heart rate; improve hemoglobin level Identify possible barriers to meeting goals/advancing plan of care: none Stability of the patient: Moderately Stable - Low risk of patient condition declining or worsening End of Shift Summary: pt to transfer to [place] Marcus Mata R.N. - 11/12/2017 5:12 AM CDT Goals: Clinical Goals for the Shift: reduce heart rate; improve hemoglobin level Identify possible barriers to meeting goals/advancing plan of care: melena; hypovolemic shock Stability of the patient: Moderately Unstable - Medium risk of patient condition declining or worsening End of Shift Summary: HR has improved over the duration of this cage shift manager; initially HR was 130-140, now HR is [...] with her family history of CAD and KS as well as her recent surgery and [...] Red Blood Cells (11/12/2017 9:07 AM CDT) Marlyn Boudreaux APRN.N.P., M.S.N. BLOOD TRANSFUSION O RDERABLES (ABNORMAL) Hemoglobin (11/12/2017 5:40 AM CDT) P athologist Signature Hemoglobin 7.6 (L) 11.6 - 15.0 11/12/2017 [facility] g/dL 5:47 AM CDT [facility] Specimen Anatomical Collection Method Collection Time Receive d Time (Source) Location / / Volume Laterality Blood (Blood, 11/12/2017 5:40 AM 11/13/19 18 5:45 Venous) CDT AM CDT Kendal Santacruz APRNN.P. LAB BLOOD ADD-ON Performing Organization Address City/State/ZIP Code Phon e Number [facility] [address] [place] [address] [facility] (ABNORMAL) Hemoglobin (11/12/2017 12:21 AM CDT) P athologist Signature Hemoglobin 8.9 (L) 11.6 - 15.0 11/12/2017 [facility] g/dL 12:24 AM CDT [facility] Specimen Anatomical Collection Method Collection Time Receive d Time (Source) Location / / Volume Laterality Blood (Blood, 11/12/2017 12:21 11/12/2017 Venous) AM CDT 12:21 AM CDT Marlyn Santacruz APRN.N.P. LAB BLOOD ADD-ON Performing Organization Address City/State/ZIP Code Phon e Number [facility] [address] [place] [address] [facility] Transfuse Red Blood Cells (11/11/2017 10:52 PM CDT) Kaye Grimes APRN, C.N.P., M.S.N. BLOOD TRANSFUSION O RDERABLES Transfuse Red Blood Cells : , 1 Units (11/11/2017 10:52 PM CDT) Kaye Grimes APRN, C.N.P., M.S.N. BLOOD TRANSFUSION O RDERABLES (ABNORMAL) Hemoglobin (11/11/2017 6:15 PM CDT) athologist Signature Hemoglobin 8.7 (L) 11.6 - 15.0 11/11/2017 [facility] g/dL 6:21 PM CDT [facility] Specimen Anatomical Collection Method Collection Time Receive d Time (Source) Location / / Volume Laterality Blood (Blood, 11/11/2017 6:15 PM 11/12/19 18 6:19 Venous) CDT PM CDT Kendal Santacruz APRNN.P. LAB BLOOD ADD-ON Performing Organization Address City/State/ZIP Code Phon e Number [facility] [address] [place] [address] [facility] Transfuse Red Blood Cells (11/11/2017 3:59 [...] 11/11/2017 3:5 1 PM CDT [facility] [place] [facility] Patient Name: Carol Cooley Procedure Date: [...] then will plan on transferrin g to [place] for further therapy. Findings: The esophagus was [...] Signature Prothrombin 9.4 8.8 - 11.9 11/11/2017 [facility] Time, P sec 12:58 PM CDT [facility] INR 0.9 0.9 - 1.2 11/11/2017 [facility] 12:58 PM CDT [facility] Comment: Standard intensity warfarin therapeutic range: 2.0 to 3.0 High intensity warfarin therapeutic rang e: 2.5 to 3.5 Specimen Anatomical Collection Method Collection Time Receive d Time (Source) Location / / Volume Laterality Blood (Blood, 11/11/2017 12:39 11/11/2017 Venous) PM CDT 12:42 PM CDT Nuno Love M.D. LAB BLOOD ADD-ON Performing Organization Address City/State/ZIP Code Phon e Number [facility] [place] [address] [facility] Lactate (11/11/2017 12:39 PM CDT) P athologist Signature Lactate, P 2.1 0.6 - 2.3 11/11/2017 [facility] mmol/L 12:59 PM CDT [facility] [place] Specimen Anatomical Collection Method Collection Time Receive d Time (Source) Location / / Volume Laterality Blood (Blood, 11/11/2017 12:39 11/11/2017 Venous) PM CDT 12:42 PM CDT Nuno Love M.D. LAB BLOOD NON ADD-ON Performing Organization Address City/State/ZIP Code Phon e Number [facility] [place] [address] [facility] documented in this encounter Visit [...] available)1735 (MAR Unhold - Provider: Transfer Provider, Automatic)203 (Given - Provider: H Mata, R.N.) 0900 (Not Given - Provider: Gabrielle Nguyen RBrittaneyNBrittaney - Reason: Other) 3 mL, intravenous, Every 12 hours schedu led, First dose on Bryanna 11/11/17 at 2100, Peripheral Intravenous Catheter and Rapid Infusion Catheter, when no infusion to maintain patency Continuous Medication Order 11/10/2017 11/11/2017 11/12/2017 NaCl 0.9% infusion 1321 (New Bag - Prov ider: Cammie Schuster RRoverto)1744 (New Bag - Provider: Todd Valadez RRoverto) [...] injection (for_SUBLIMAZE) (COMPLETED) 1618 (Given - Provider: Ruben AbdiNBrittaney) intravenous, Code/trauma/sedation medication, Starting on Bryanna at [...] (Gi pablo - Provider: Cammie Schuster RBrittaneyNBrittaney)1608 (MAR Hold - Provider: Transfer Provider, Automatic - Reason: Patient not available)1735 (MAR Unhold - Provider: Transfer Provider, Automatic)203 (Given - Provider: Marcus Mata R.N.) 0830 (Given - Provider: Gabrielle Nguyen R.N.)0903 (Given - Provider: Gabrielle Nguyen R.N.) 10 mL, intravenous, As needed, line care , Starting on Bryanna 11/11/17 at 1230, Peripheral Intravenous Catheter and Rapid Infusion Catheter, prior to blood sampling, post blood transfusion or post blood sampling sodium chloride injection 3 mL 1608 (OCT Hold - Provider: Transfer Provider, Automatic - Reason: Patient not available)1735 ([facility] Unhold - Provider: Transfer Provider, Automatic) 3 mL, intravenous, As needed, line care, Starting on Bryanna 11/11/17 at 1230, Prior to and following infusion and between multiple consecutive infusions: sodium chloride 0.9 % injection documented in this encounter Additional Health Concerns Assessment Noted Time PHQ-9 Depression Total Score: 7 04/07/2017 9:39 AM CDT documented as of this encounter Care Teams Unattended Ground Sensor Specialist Relationship Specialty Start Date End Date Blaire Bundy P.A.-C. PCP - General 02/04/17 04/26/19 documented as of this encounter
--- OUTSIDE RECORDS SUMMARY | 2022-07-17 08:07 | XMS_ITS | Encounter Summary ---
:1985 Author Organization [facility] Address [address] [place] [address] Care Team Providers Name Role Phone Blaire Bundy P.A.-C. Primary Care Provider Reason for Referral Outpatient (Routine) - Closed Specialty Diagnoses / Procedures Referred By Contact Refer red To Contact Orthopedic Surgery Diagnoses Pain Toe Pain Toe Blaire Bundy [facility] Procedures ORS CONS FOOT POD P.A.-C. [address] [place], [place] [address] Referral ID Status Reason Start Date Expiration Date Visits Requ ested Visits Authorized [id number] Closed 02/18/2018 02/18/2019 1 1 Scheduling Instructions [...] Cholecystitis With Obstruction par review Edd Moeller [facility] Procedures RAY D.O. [address] [place] [address] Referral ID Status Reason Start Date Expiration Date Visits Requ ested Visits Authorized [id number] Closed 02/11/2018 02/11/2019 1 1 Encounter Details Date Type Department Care Team Description 02/18/2018 Office Visit Department of Family Blaire Bundy perative Exam (Primary Dx); MedicineFlorentino P.A.-C. 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; [facility] [place] [address] Elvis Swenson Gallstone With Common Bile Duct Stone; [place], [place] Anemia Pos themorrhagic Acute; [place] [address] [place] [address] [address] [phone] [place], [place] (Work) [phone] Social History Tobacco Use [...] How often do you attend druze or denominational More than 4 time s [...] having a cholecystomy with Dr. Moeller in [place] on 03/03/2018. The patient notes she continues [...] Index 50.0 To 59.9 Adult ([facility]) ??? Abuse Tobacco Smoking- Smokes infrequently/socially, 1-2 [...] RETROGRADE CHOLANGIOPANCREATOGRAPHY; Surgeon: Rubio Baker M.D.; Location: [facility] OR ??? ESOPHAGOGASTRODUODENOSCOPY N/A 11/11/2017 Procedure: ESOPHAGOGASTRODUODENOSCOPY; Surgeon: Rubio Baker M.D.; Location: [facility] GI LAB ??? LAPAROSCOPIC APPENDECTOMY N/A 09/08/2017 Procedure: LAPAROSCOPIC APPENDECTOMY; Surgeon: Edd Moeller D.O.; Location: [facility] OR ??? OTHER CONVERTED SHX (SEE COMMENT) [...] with Differential, Blood (02/18/2018 10:42 AM CDT) [facility] Method Time Signature Hemoglobin 11.3 (L) 11.6 - 02/18/2018 [facility] 15.0 g/dL 10:[address] [facility] Hematocrit 37.3 35.5 - 02/18/2018 [facility] 44.9 % 10:[address] [facility] Erythrocytes 4.95 3.92 - 02/18/2018 [facility] 5.13 10:54 AM CDT [facility]ALTH x10(12)/L [facility] MCV 75.4 (L) 78.2 - 02/18/2018 [facility] 97.9 fL 10:[address] [facility] RBC Distrib Width 15.3 12.2 - 02/18/2018 [facility] 16.1 % 10:54 AM [facility] Platelet Count 285 157 - 371 02/18/2018 [facility] x10(9)/L 10:54 AM [facility] Leukocytes 7.0 3.4 - 9.6 02/18/2018 [facility] x10(9)/L 10:[address] [facility] Neutrophils 4.71 1.56 - 02/18/2018 [facility] 6.45 10:54 AM CDT [facility] x10(9)/[facility] Lymphocytes 1.76 0.95 - 02/18/2018 [facility] 3.07 10:54 AM CDT [facility] x10(9)/L [facility] Monocytes 0.35 0.26 - 02/18/2018 [facility] 0.81 10:54 AM CDT [facility] x10(9)/L [facility] Eosinophils 0.18 0.03 - 02/18/2018 [facility] 0.48 10:54 AM CDT [facility] x10(9)/L [facility] Basophils 0.03 0.01 - 02/18/2018 [facility] 0.08 10:54 AM T [facility] x10(9)/L [facility] Specimen Anatomical Collection Method Collection Time Receive d Time (Source) Location / / Volume Laterality Blood (Blood, 02/18/2018 10:42 02/18/2018 Venous) AM CDT 10:46 AM CDT Edd Moeller D.O. 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 PCP - General 02/04/17 04/26/19 documented as of this encounter
--- OUTSIDE RECORDS SUMMARY | 2022-07-17 08:07 | XMS_ITS | Encounter Summary ---
:1985 Author Organization [facility] Address [address] [place] [address] Care Team Providers Name Role Phone Blaire Bundy P.A.-C. Primary Care Provider Encounter Details Date Type Department Care Team Description 11/12/2017 Hospital Encounter HX NO MAPPING Nichole Lerma [address] [place], [place] [phone] Social History Tobacco Use [...] How often do you attend mandaen or sabianist More than 4 time s [...] as of this encounter Care Teams Wood Sawyer Relationship Specialty Start Date End Date Blaire Bundy P.A.-C. PCP - General 02/04/17 04/26/19 documented as of this encounter
--- OUTSIDE RECORDS SUMMARY | 2022-07-17 08:07 | XMS_ITS | Encounter Summary ---
:1985 Author Organization [facility] Address [address] [place] [address] Care Team Providers Name Role Phone Blarie Bundy P.A.-C. Primary Care Provider Encounter Details [...] How often do you attend mandaeism or roman catholic More than 4 time [...] as of this encounter Care Teams Research And Insights Executive Relationship Specialty Start Date End Date Blaire Bundy P.A.-C. PCP - General 02/04/17 04/26/19 documented as of this encounter
--- OUTSIDE RECORDS SUMMARY | 2022-07-17 08:07 | XMS_ITS | Encounter Summary ---
:1985 Author Organization [facility] Address [address] [place] [address] Care Team Providers Name Role Phone Blaire Bundy P.A.-C. Primary Care Provider Reason for Visit Reason Comments Other right big toe infection? Appointment Request (Routine) - Closed Specialty Diagnoses / Procedures Referred By Contact Refer red To Contact Family Medicine Referral ID Status Reason Start Date Expiration Date Visits Requ ested Visits Authorized [id number] Closed 11/22/2017 05/21/2018 1 1 Encounter Details Date Type Department Care Team Description 11/23/2017 Office Visit Department of Family Blaire Bundy Cell ulitis Toe Right Medicine, [place] Jose Warren (Primary Dx) Clinic, in [address] [phone] [address] (Work) [phone] Social History Tobacco Use Types Packs/Day Years [...] How often do you attend taoism or sikhism More than 4 time s [...] as of this encounter Care Teams Sales And Marketing Associate Relationship Specialty Start Date End Date Blaire Bundy P.A.-C. PCP - General 02/04/17 04/26/19 documented as of this encounter
--- OUTSIDE RECORDS SUMMARY | 2022-07-17 08:07 | XMS_ITS | Encounter Summary ---
:1985 Author Organization [facility] Address [address] [place] [address] Care Team Providers Name Role Phone Blaire Bundy P.A.-C. 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 [address] [place] [phone] [address] [phone] Anesthesia Record Procedure Summary Procedure Name Responsible Anesthesia Start Anesthesia Stop Anesthesiologist Time Time ESOPHAGOGASTRODUODENOSCOPY Alberto Hampton APRN, 11/11/17 1634 11/11/17 1655 FEATHER MAKER Events Date Time Event Comment 11/11/2017 1634 An Start Machine/Equipmen t Checked Infection Precautions Foll owed Procedure/Site Verified NPO Sta tus Verified Supine Standard ASA Mon itors Applied 1637 Turnover to Proceduralist 1653 Turnover to ANE Staff 1653 Proc Fin 1655 an stop data 1655 An End I completed my h andoff to the receiving staff during [facility] ch we 1. Identified the patient [...] by Abdomen; and dermabond; Antionette Barnes R.N. [facility] DRSG DISH CARRIER WND ADH NEONAT , Ryanu jonathan Automated [...] How often do you attend catholic or anglican More than 4 time s [...] Procedure Summary Date: 11/11/17 Room / Location: [facility] 1412 / [facility] GI LAB Anesthesia Start: 1634 Anesthesia [...] documented as of this encounter Care Teams Stopperer Assembler Relationship Specialty Start Date End Date Blaire Bundy P.A.-C. PCP - General 02/04/17 04/26/19 documented as of this encounter
--- OUTSIDE RECORDS SUMMARY | 2022-07-17 08:07 | XMS_ITS | Encounter Summary ---
:1985 Author Organization [facility] Address [address] [place] [address] Care Team Providers Name Role Phone Blaire Bundy P.A.-C. Primary Care Provider [phone] Reason for Visit Outpatient (Routine) - Closed Specialty Diagnoses / Procedures Referred By Contact Refer red To Contact Diagnoses Gallstone With Common Bile Duct Stone Edd Moeller D.O. [address] [address] Referral ID Status Reason Start Date Expiration Date Visits Requ ested Visits Authorized [id number] Closed 02/09/2018 02/09/2019 1 1 Encounter Details Date Type Department Care Team Description 02/11/2018 Telemedicine Department of General Edd Moeller eamargaritathetic Medical Exam (Primary Dx); Surgery in Jason Rivera D.O. Gallstone With Common Bile Duct Stone [address] [place] [address] [place], [place] [phone] [address] (Work) [phone] Social History Tobacco Use Types Packs/Day Years [...] How often do you attend faith or amish More than 4 time s per year 07/09/2020 services? Do you belong to any clubs or organizations No 04/19/2019 such as faith groups, unions, fraKapow [employer] or athletic groups, or school groups? How [...] - 02/11/2018 10:00 AM CDT Surgical Nurse Syruper Skin Alert Assessment: Complete this section only [...] lying flat? no Do you have any amish or other objection to having a blood transfusion? no Teaching: Preoperative education was done with (x) patient (_) parent (_) other. _ It was confirmed the patient/family member had received the following preoperative education sheets:Checklist For Surgical Patients ([id number]),???Surgical Site Infections ([id number]), Speak Up: Antibiotics ([id number]), ???Smoke Free, Advice for patients and visitors?? ([id number]), ???Your Guide to Pain Management ([id number]), Managing Your Pain After Surgery ([id number]) with the ???[employer]?? pamphlet ([id number]), and ???Appointments Required Before Your Surgery?? ([facility] [id number]). These were reviewed in detail. Additional Pamphlets also reviewed: (_)?? Parental Presence in the Operating Room?? ([facility]:Order Sets/Surgery/Home Instructions/Tonsillectomy Teaching Checklist/PE Tubes Teaching Sheet [...] appointments: 1st po with surgeon or physician hotel assistant manager: (x) made (_)TBD (_)Audiology appointment (PE tubes), [...] documented as of this encounter Care Teams Therapist Physical Relationship Specialty Start Date End Date Blaire Bundy P.A.-C. PCP - General 02/04/17 04/26/19 documented as of this encounter
--- OUTSIDE RECORDS SUMMARY | 2022-07-17 08:07 | XMS_ITS | Encounter Summary ---
:1985 Author Organization [facility] Address [address] [place] [address] Care Team Providers Name Role Phone Blaire Bundy P.A.-C. Primary Care Provider Reason for Referral Outpatient (Routine) - Closed Specialty Diagnoses / Procedures Referred By Contact Refer red To Contact General Surgery Diagnoses Gallstone With Common Bile Duct [place] Blaire Bundy [facility] Alicia BuckleyABrittaney-CBrittaney [address] [place], [place] [address] Referral ID Status Reason Start Date Expiration Date Visits V isits Requested Authorized [id number] Closed Specialty 11/19/2017 05/18/2018 1 1 Services Required Reason for Visit Reason Comments Post Hospital Follow-up Patient discharged from [place] on 11/13/17. 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 Patient is complaining of feeling tired and short of breath Encounter Details Date Type Department Care Team Description 11/19/2017 Office Visit Department of Family Blaire Bundy (Primary Dx); Medicine, Jose Knox Hypovolemic Shock (HCC); Clinic, in [address] Gallstone With Common Bile Duct [place]; [place], [place] Counseling Control [address] [place] [address] [place], [place] [phone] (Work) [phone] Social History Tobacco Use Types Packs/Day Years [...] How often do you attend advent or lutheran More than 4 time s [...] of Post Hospital Follow-up (Patient discharged from [place] on 11/13/17. Was in for Upper GI [...] duodenal ulcer. She was then transferred from [facility] to [facility] for further treatment. In [place] the patient had another EGD which showed [...] Name Type Priority Associated Diagnoses Order S [facility] General Surgery - Outpatient Referral Routine Gallstone [...] CBC with Differential (11/19/2017 11:35 AM CDT) [facility] gist Method Time Signature Hemoglobin 8.6 (L) 11.6 - 11/19/2017 [facility] 15.0 g/dL 11:58 AM CDT [facility] Hematocrit 27.7 (L) 35.5 - 11/19/2017 [facility] 44.9 % 11:58 AM CDT [facility] Erythrocytes 3.10 (L) 3.92 - 11/19/2017 [facility] 5.13 11:58 AM CDT [facility](12[facility] MCV 89.4 78.2 - 11/19/2017 [facility] 97.9 fL 11:58 AM T [facility] RBC Distrib Width 14.9 12.2 - 11/19/2017 [facility] 16.1 % 11:58 AM T [facility] Platelet Count 355 157 - 371 11/19/2017 [facility] x10(9)/L 11:58 AM CDT [facility] Leukocytes 5.6 3.4 - 9.6 11/19/2017 [facility] x10(9)/L 11:58 AM T [facility] Neutrophils 2.80 1.56 - 11/19/2017 [facility] 6.45 11:58 AM CDT [facility] x10(9)/L [facility] [place] [facility] Lymphocytes 2.17 0.95 - 11/19/2017 [facility] 3.07 11:58 AM CDT [facility] x10(9)/L [facility] [place] Monocytes 0.44 0.26 - 11/19/2017 [facility] 0.81 11:58 AM CDT [facility] x10(9)/[facility] [place] [facility] Eosinophils 0.22 0.03 - 11/19/2017 [facility] 0.48 11:58 AM CDT [facility]ALTH x10(9)/L [facility] [place] [facility] Basophils 0.01 0.01 - 11/19/2017 [facility] 0.08 11:58 AM CDT HEALTH x10(9)/L [facility] [place] [facility] Specimen Anatomical Collection Method Collection Time Receive d Time (Source) Location / / Volume Laterality Blood (Blood, 11/19/2017 11:35 11/19/2017 Venous) AM CDT 11:50 AM CDT Blaire Bundy P.A.-C. LAB BLOOD ADD-ON Performing Organization Address City/[facility] Code Phon e Number [facility]- [address] [place] [id number] [facility] documented in this encounter Visit Diagnoses Diagnosis Melena - Primary Hypovolemic Shock (HCC) Gallstone With Common Bile Duct [place] Counseling Control documented in this encounter Additional Health Concerns Assessment Noted Time PHQ-9 Depression Total Score: 7 04/07/2017 9:39 AM CDT documented as of this encounter Care Teams Medic Technician Relationship Specialty Start Date End Date Blaire Bundy P.A.-C. PCP - General 02/04/17 04/26/19 documented as of this encounter
--- OUTSIDE RECORDS SUMMARY | 2022-07-17 08:07 | XMS_ITS | Encounter Summary ---
:1985 Author Organization [facility] Address [address] [place] [address] Care Team Providers Name Role Phone Blaire [...] How often do you attend sikhism or jew More than 4 time s [...] documented as of this encounter Care Teams Hepatologist Relationship Specialty Start Date End Date Blaire Bundy P.A.-C. PCP - General 02/04/17 04/26/19 documented as of this encounter
--- OUTSIDE RECORDS SUMMARY | 2022-07-17 08:07 | XMS_ITS | Encounter Summary ---
:1985 Author Organization [facility] Address [address] [place] [address] Care Team Providers Name Role Phone Blaire Bundy P.A.-C. Primary Care Provider [phone] Reason for Referral Outpatient (Routine) - Closed Specialty Diagnoses / Procedures Referred By Contact Refer red To Contact General Surgery Diagnoses Gallstone With Common Bile Duct [place] par review Jaquan Monahan [facility] Region Procedures GNS POST OP D.O. [address] [place] [address] Referral ID Status Reason Start Date Expiration Date Visits Requ ested Visits Authorized [id number] Closed 03/03/2018 03/03/2019 1 1 Reason for Visit Auth/Cert Specialty Diagnoses / Procedures Referred By Contact Refer red To Contact Diagnoses Gallstone With Common Bile Duct [place] Procedures ID LAPAROSCOPY CHOLECYST W CHOLNG LAPAROSCOPIC CHOLECYSTECTOMY WITH CHOLANGIOGRAM Referral ID Status Reason Start Date Expiration Date Visits Requ ested Visits Authorized [id number] 1 1 Encounter Details Date Type Department Care Team Description 03/03/2018 Hospital Encounter [facility] OR Jaquan Monahan With [address] P, D.OBrittaney Common Bile Duct [place] [place] DC [address] [place] [address] W [phone] [place], [place] [id number] Social History Tobacco Use Types Packs/Day Years [...] often do you attend latter day or taoism More than 4 time s [...] through Care Everywhere.Home Care Following Gallbladder Surgery (Macedonian)documented in this encounter Medications at Time of [...] Role: * Jaquan Monahan D.O. - Primary Well Surveying Engineer: Naye Stockton L.P.N. Anesthesia Type: General Pre-Operative [...] of these were recovered in the suction ux design lead. The gallbladder was placed in Endo-Catch bag [...] Name Type Priority Associated Diagnoses Order S [facility] Surgery Outpatient Referral Routine Gallstone With Exp [...] Component Value Ref Test Analysis Performed At [facility] Method Time Signature PATHOLOGY Patient Name: [facility] MR#: [id number] LAUREL Submitting Physician: JAQUAN MONAHAN DO [id number] Specimen #[id number] Performing Lab: ??[facility] ? [address] [place] [id number] Source: Gallbladder Clinical History/Pre-Op Gallstone with common [...] trabeculated. ??The mucosal wall measures 0.2 cm. ??Head Of Training And Development sections are submitted in cassette A1. KG/ps ?? Diagnosis Gallbladder, cholecystectomy: CHOLELITHIASIS. Electronically Signed By USAMA MALDONADO MD - 03/04/2018 pjs/03/04/2018 Specimen (Source) Anatomical Collection Method Collection Time Re ceived Time Location / / Volume Laterality Tissue 03/03/2018 9:54 AM (Gallbladder) CDT Jaquan Monahan D.O. LAB SURG PATH ORDERABLES Performing Organization Address City/State/[facility] Phon e Number [address] [address] documented in this encounter Visit Diagnoses Diagnosis [...] Provider: Ruben RossiN.) 5,000 Units, subcutaneous, Once, On Bryanna 03/03/18 at 0715, For 1 dose, Intra-Op, Administer prior to induction of anesthesia. lidocaine 10 mg/mL (1 %) injection 1 mL (XYLOCAINE) 0700 (Due) 1 mL, infiltration, Once, Bryanna 03/03/18 at 0700, For 1 dose, Pre-Op, May admin up to 1 mL at the site of IV site if not allergic to lidocaine metroNIDAZOLE in NaCl (iso-osm) IVPB 500 mg (FLAGYL) (COMPLETED) 843 (Given - Provider: Rosalee Desir APRN, CHAINSTITCH HEMMER) 500 mg, intravenous, at 200 mL/hr, Admin ister over 30 Minutes, Once, On Bryanna 03/03/18 at 0715, For 1 dose, Intra-Op, Preoperatively within 1 hour prior to surgical incision., Indications: Prophylaxis, surgical sodium chloride injection 10 mL 0700 (Due) 10 mL, intravenous, Every 8 hours schedu led (RT), First dose on Rbyanna 03/03/18 at 0700, Pre-Op, Peripheral Intravenous Catheter [...] (Rate/Dose Verify - Provider: Rosalee Desir APRN, CHAINSTITCH HEMMER)1019 (Anesthesia Volume Adjustment - Provider: Rosalee Desir [...] Provider: Melany Lira RBrittaneyNBrittaney)1052 (Given - Provider: Ruben AbdiNBrittaney)1054 (Given - Provider: Melany Lira R.N.)1058 (Given - Provider: Melany Lira RBrittaneyNBrittaney) 25 [...] 1033, Drug Monitoring Program: Pharmacist to a [facility] medication order based on comorbities and indication. documented in this encounter Additional Health Concerns Assessment Noted Time PHQ-9 Depression Total Score: 7 04/07/2017 9:39 AM CDT documented as of this encounter Care Teams Counseling Aide Relationship Specialty Start Date End Date Blaire Bundy P.A.-C. PCP - General 02/04/17 04/26/19 documented as of this encounter
--- OUTSIDE RECORDS SUMMARY | 2022-07-17 08:08 | XMS_ITS | Encounter Summary ---
:1985 Author Organization [facility] Address [address] [place] [address] Care Team Providers Name Role Phone Blaire Bundy P.A.-C. Primary Care Provider [phone] Reason for Visit Reason Comments Communication [facility] hospital follow-up Encounter Details Date Type Department Care Team Description 09/10/2017 Clinical Department of Suellen Beasley on ([facility] Internal R, R.N. hospital follow-up) Medicine in [address] [place] [address], [address] [place] [address] [place] [phone] [address] (Work) [phone] Social History Tobacco Use Types Packs/Day Years [...] How often do you attend adventist or presybeterian More than 4 time s [...] to pay for the very basics like [employer] hard 07/09/2020 food, housing, medical care, [...] 8:02 AM CST See previous note, duplicate. TIER Telephone Encounter - Suellen Beasley R.N. - 09/10/2017 7:40 AM CST Discharge date 09/09/17 at 1230. Reason for hospitalization Appendicitis acute. Follow up scheduled for 09/20/17. TIER documented in this encounter Plan of Treatment Not on filedocumented as of this encounter Visit Diagnoses Not on filedocumented in this encounter Additional Health Concerns Assessment Noted Time PHQ-9 Depression Total Score: 7 04/07/2017 9:39 AM CDT documented as of this encounter Care Teams Hand Folder Relationship Specialty Start Date End Date Blaire Bundy P.A.-C. PCP - General 02/04/17 04/26/19 documented as of this encounter
--- OUTSIDE RECORDS SUMMARY | 2022-07-17 08:08 | XMS_ITS | Encounter Summary ---
:1985 Author Organization [facility] Address [address] [place] [address] Care Team Providers Name Role Phone Blaire Bundy P.A.-C. 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 [address] [address] [facility] [phone] [place] [phone] Anesthesia Record Procedure Summary Procedure Name Responsible [...] h andoff to the receiving staff during [facility] ch we 1. Identified the patient [...] henok; Antionette Cooper CRT, R.N. [facility] WND ADH NEONAT 2X3.75 d, Schedul [...] How often do you attend islam or jewish More than 4 time s [...] Procedure Summary Date: 11/08/17 Room / Location: [address] 01 140 / [facility] OR Anesthesia Start: 1544 Anesthesia Stop: [...] patient / legal guardian, or through an cookie breaker; patient evaluated and approved for anesthesia / [...] as of this encounter Care Teams Sql Database Programmer Relationship Specialty Start Date End Date Blaire Bundy P.A.-C. PCP - General 02/04/17 04/26/19 documented as of this encounter
--- OUTSIDE RECORDS SUMMARY | 2022-07-17 08:08 | XMS_ITS | Encounter Summary ---
:1985 Author Organization [facility] Address [address] [place] [address] Care Team Providers Name Role Phone Blaire Bundy P.A.-C. Primary Care Provider Reason for Referral Outpatient (Routine) - Closed Specialty Diagnoses / Procedures Referred By Contact Refer red To Contact General Surgery Diagnoses Appendicitis Acute Par Review Seng Reyna M.D. [facility] Region Procedures GNS POST OP [address] [place] [address] Referral ID Status Reason Start Date Expiration Date Visits Requ ested Visits Authorized [id number] Closed 09/09/2017 03/08/2018 1 1 Scheduling Instructions To see Dr. Monahan 09/15/2016 in [facility] Reason for Visit Reason Comments Abdominal Pain [...] Expiration Date Visits Requ ested Visits Authorized [id number] 1 1 Encounter Details Date Type Department Care Team Description 09/08/2017 - Emergency [facility], Natalie Car M.D. [address] [place] [id number] Appendicitis Acute 09/09/2017 [facility] Taryn Helm M.D. [address] [place] [address] (Primary Dx) Center, Third Floor Jaquan Monahan D.O. [address] [place] [address] [place] [address] [address] [place] [address] Social History Tobacco Use Types [...] How often do you attend moravian or congregation More than 4 time s [...] Comments Blood Pressure 126/63 09/09/2017 10:22 AM [facility]HOUSE [employer] Pulse 79 09/09/2017 10:22 AM [facility]HOUSE [employer] Temperature 36.7 ??C (98.1 ??F) 09/09/2017 10:22 AM [facility] Respiratory Rate 18 09/09/2017 10:22 AM [facility] Oxygen Saturation 94% 09/09/2017 10:22 AM [facility]HOUSE [employer] Inhaled Oxygen Concentration - - Weight 145 kg (319 lb 10.7 oz) 09/08/2017 2:13 PM W[employer]HOUSE [employer] Height 157.5 cm (5' 2) 09/08/2017 10:09 AM [facility] Body Mass Index 58.47 09/08/2017 10:09 AM [facility]HOUSE [employer] documented in this encounter Discharge Summaries Seng Reyna M.D. - 09/09/2017 9:51 AM CST INPATIENT DISCHARGE SUMMARY BRIEF OVERVIEW Discharge Provider: Taryn Ozuna M.D. Primary Care Providers: Blaire Thornton P.A.-C. (General) [address] [place] [phone] Primary Care Provider Primary Care Provider Other Providers: Admission Date: 09/08/2017 Discharge Date: 09/09/2017 PRINCIPAL DIAGNOSIS Appendicitis Acute SECONDARY DIAGNOSES Principal Problem: Appendicitis Acute Resolved Problems: * No resolved hospital problems. * Operative Procedures: Scheduled (Blank), Completed (Comp) or Canceled (Can) Case IDs Date Procedure Surgeon Location Status [id number] 09/08/17 LAPAROSCOPIC APPENDECTOMY Jaquan Monahan D.O. [facility] OR Comp DISCHARGE DISPOSITION Home or Self [...] Your Medications These medications were sent to [facility] - [address] [address] ?? ciprofloxacin 500 mg tablet ?? metroNIDAZOLE [...] ADMISSION ANESTHESIA FOLLOW-UP CONDITION AT DISCHARGE improved [employer] documented in this encounter Discharge Instructions AttachmentsThe following attachments cannot be sent through Care Everywhere.Care Following Your Laparoscopy (Danish)documented in this encounter Medications at Time of [...] /or at baseline Post Op nausea/vomiting: none HOUSE [employer] documented in this encounter H&P Notes Jaquan [...] or fallopian tube. She gives informed consent. [employer]SE [employer] documented in this encounter Nursing Notes Kiera [...] o-1 Refuses pain medication at this time HOUSE [employer] documented in this encounter OR Notes Op Note - Jaquan Monahan D.O. - 09/08/2017 4:35 PM CST FULL OP NOTE Procedure(s): LAPAROSCOPIC APPENDECTOMY Surgeon(s) and Role: * Jaquan Monahan D.O. - Primary Die Casting Machine Operator: Lior PerezPBrittaneyNBrittaney; Nichole Allen L.P.N. Anesthesia Type: [...] implants in log * Jaquan Monahan D.O. [employer] Brief Op Note - Jaquan Monahan D.O. [...] implants in log * Jaquan Monahan D.O. [employer] documented in this encounter ED Notes Dimitri [...] for admission. He will contact the nursing operation shift supervisor to determine a plan of when [...] was going to talk with the nursing operation shift supervisor and the operating room about the [...] accurate and complete. Dimitri Car M.D. 09/08/172138 [employer] documented in this encounter Plan of Treatment Scheduled Referrals Name Type Priority Associated Diagnoses Order S [facility] Surgery Outpatient Referral Routine Appendicitis Acute Expected: Post Op (clinic) 09/15/2017 (Approximate), Expires: 09/09/2020 documented as of this encounter Procedures Procedure Name Priority Date/Time Associated Comments Diagnosis CBC WITH Routine 09/09/2017 7:05 Results for DIFFERENTIAL, B AM [employer]HOUSE [employer] this procedu re are in the results section. INCENTIVE Routine 09/08/2017 6:39 SPIROMETRY - RT/RN PM [employer] INCENTIVE Routine 09/08/2017 6:39 SPIROMETRY - RT/RN PM [employer] INCENTIVE Routine 09/08/2017 6:39 SPIROMETRY - RT/RN PM [employer] INCENTIVE Routine 09/08/2017 6:39 SPIROMETRY - RT/RN PM [employer] INCENTIVE Routine 09/08/2017 6:39 SPIROMETRY - RT/RN PM [employer] INCENTIVE Routine 09/08/2017 6:39 SPIROMETRY - RT/RN PM [employer] INCENTIVE Routine 09/08/2017 6:39 SPIROMETRY - RT/RN PM [employer] INCENTIVE Routine 09/08/2017 6:39 SPIROMETRY - RT/RN PM [employer] INCENTIVE Routine 09/08/2017 6:39 SPIROMETRY - RT/RN PM [employer] INCENTIVE Routine 09/08/2017 6:39 SPIROMETRY - RT/RN PM [employer] INCENTIVE Routine 09/08/2017 6:39 SPIROMETRY - RT/RN PM [employer] ADULT OXYGEN Routine 09/08/2017 5:43 THERAPY PM WAREHOUSE SH[employer]PER PATHOLOGY SERVICES Routine 09/08/2017 5:08 Appendicitis Acute Results for PM W[employer]HOUSE SH[employer]PER this procedure are in the results section. LAPAROSCOPIC 09/08/2017 4:06 Appendicitis Acute APPENDECTOMY PM WAREHOUSE SH[employer] CT ABDOMEN PELVIS RAD - Semiurgent 09/08/2017 11:53 Re sults for WITH IV CONTRAST (Fast; most ED AM WAREHOUSE SHIPPER this proc edure patients; some are in the inpatients) results section. IRIS MICROSCOPIC, U STAT 09/08/2017 11:03 Resu lts for AM W[employer]HOUSE [employer] this procedure are in the results section. URINALYSIS WITH STAT 09/08/2017 11:03 Results for MICROSCOPIC IF AM W[employer]HOUSE [employer]PER this procedur e INDICATED, U are in the results section. HEPATIC FUNCTION STAT 09/08/2017 10:50 Results for PANEL, S AM [employer]SE [employer] this procedure are in the results section. CBC WITH STAT 09/08/2017 10:50 Results for DIFFERENTIAL, B AM [employer]SE [employer] this procedu re are in the results section. C-REACTIVE PROTEIN STAT 09/08/2017 10:50 Resul ts for (CRP), S/P AM [employer]HOUSE [employer] this procedure are in the results section. HUMAN CHORIONIC STAT 09/08/2017 10:50 Results for GONADOTROPIN (HCG), AM [employer]SE [employer] this pro cedure MARCI, are in the results section. LIPASE, S/P STAT 09/08/2017 10:50 Results for AM [employer] this procedure are in the results section. LACTATE, B/P STAT 09/08/2017 10:50 Results for AM [employer] this procedure are in the results section. BASIC METABOLIC STAT 09/08/2017 10:50 Results for PANEL, S/P AM [employer]HOUSE [employer] this procedure are in the results section. documented in this encounter Results (ABNORMAL) CBC with Differential (09/09/2017 7:05 AM W[employer]HOUSE [employer]) [facility] Method Time Signature Hemoglobin 11.1 (L) 11.6 - 09/09/2017 [facility] 15.0 g/dL 7:11 AM [employer] [facility] LAB Hematocrit 34.8 (L) 35.5 - 09/09/2017 [facility] 44.9 % 7:11 AM [employer] LAB Erythrocytes 4.18 3.92 - 09/09/2017 [facility] 5.13 7:11 AM [facility] HEALTH x10(12)/L SYSTEM- [employer] LAB MCV 83.3 78.2 - 09/09/2017 [facility] 97.9 fL 7:11 AM [facility] RBC Distrib Width 13.6 12.2 - 09/09/2017 [facility] 16.1 % 7:11 AM [employer] LAB Platelet Count 263 157 - 371 09/09/2017 [facility] x10(9)/L 7:11 AM [facility] LAB Leukocytes 11.8 (H) 3.4 - 9.6 09/09/2017 [facility] x10(9)/L 7:11 AM [facility] LAB Neutrophils 10.54 (H) 1.56 - 09/09/2017 [facility] 6.45 7:11 AM [facility] x10(9)/L [facility] Lymphocytes 0.65 (L) 0.95 - 09/09/2017 [facility] 3.07 7:11 AM [facility] x10(9)/L [facility] Monocytes 0.57 0.26 - 09/09/2017 [facility] 0.81 7:11 AM [facility] x10(9)/L [facility] Eosinophils 0.01 (L) 0.03 - 09/09/2017 [facility] 0.48 7:11 AM [facility] x10(9)/L SYSTEM- [facility] LAB Basophils 0.01 0.01 - 09/09/2017 [facility] 0.08 7:11 AM [facility] x10(9)/L [facility] Specimen Anatomical Collection Method Collection Time Receive d Time (Source) Location / / Volume Laterality Blood (Blood, 09/09/2017 7:05 AM 09/09/19 7:08 Venous) [facility] AM [facility] Jaquan Monahan D.O. LAB BLOOD ADD-ON Performing Organization Address City/State/ZIP Code Phon e Number [facility] [address] [place] [address] [facility] Pathology Services (09/08/2017 5:08 PM WAREHOUSE SHIPPER) Component Value Ref Test Analysis Performed At [facility] Range Method Time Signature PATHOLOGY Patient Name: PUNEET CLAYTON [facility] [employer] MR#: [id number] [facility] Submitting Physician: JAQUAN MONAHAN DO [id number] Specimen #[id number] Performing Lab: ??[facility] ? [address] [place] [id number] Source: Appendix Clinical History/Pre-Op Appendicitis acute [K35.80] Gross Description Labeled appendix consists of a 6.1 cm in length x 1.2 cm in diameter appendix, with attached mesoappendix ( 2.4 cm). ??The serosa is gatica-brown with focal areas of white exudate. ??The muco sa is red-brown hemorrhagic to necrotic. ??An area of disruption is not grossly id entified. ??House Parent sections are submitted in cassette A1. KG/ed ?? Diagnosis Appendix, appendectomy: ACUTE APPENDICITIS WITH PERIAPPENDICITIS. Electronically Signed By JANNET HERNÁNDEZ MD - 09/10/2017 ed/09/10/2017 Specimen (Source) Anatomical Collection Method Collection Time Re ceived Time Location / / Volume Laterality Tissue (Appendix) 09/08/2017 5:08 PM W[employer]HOUSE SH[employer]PER Comment: Acute appendicitis Jaquan Monahan D.O. LAB SURG PATH ORDERABLES Performing Organization Address City/State/ZIP Code Phon e Number [facility] [address] [place] [address] CT Abdomen Pelvis with IV Contrast (09/08/2017 11:53 AM WAREHOUSE SHIPPER) Anatomical Region Laterality Modality Abdomen, Pelvis N/A Computed Tomography Specimen (Source) Anatomical Collection Method Collection Time Re ceived Time Location / / Volume Laterality 09/08/2017 12:00 PM W[employer]HOUSE SH[employer]PER Impressions 09/08/2017 12:07 PM WAREHOUSE SH[employer]PER IMPRESSION: 1. ??Acute uncomplicated appendicitis. 2. ??Hepatic steatosis. 3. ??Prominent follicle right ovary. Narrative 09/08/2017 12:07 PM WAREHOUSE SHIPPER EXAM: CT ABDOMEN PELVIS WITH IV CONTRAST [...] Dimitri Car M.D. IMG CT PROCEDURES (ABNORMAL) Marly Mullen, U (09/08/2017 11:03 AM [facility]) Analysis Performed At Patho logist Time Signature White Blood 11-20 (A) /hpf 09/08/2017 [facility] Cells 11:13 AM [facility] [place] [facility] Comment: ----REFERENCE VALUE---- Males: 0-3 Females: 0-10 Unknown: 0-10 Red Blood Cells Occ-2 0 - 2 /hpf 09/08/2017 11:13 AM [facility] Mucus Present /hpf 09/08/2017 11:13 AM [facility] [place] [facility] Squamous Epithelial Occ-3 /hpf 09/08/2017 11:13 AM [facility] Bacteria Present (A) None Seen 09/08/2017 11:[address] [facility] [place] [facility] Specimen Anatomical Collection Method Collection Time Receive d Time (Source) Location / / Volume Laterality Urine 09/08/2017 11:03 09/08/2017 AM [employer] 11:05 AM [employer] Dimitri Car M.D. LAB URINE ORDERABLES Performing Organization Address City/State/ZIP Code Phon e Number [facility] [address] [facility] [address] [facility] (ABNORMAL) Urinalysis with Microscopic if Indicated (09/08/2017 11:03 AM W[employer]SE [employer]) Analysis Performed At Patho logist Time Signature Source Midstream 09/08/2017 [facility] 11:13 AM [facility] [place] [facility] Clarity Slightly Clear 09/08/2017 [facility] Cloudy (A) 11:13 AM [facility] [place] [facility] Color Yellow 09/08/2017 [facility] 11:13 AM [facility] [place] [facility] Comment: ----REFERENCE VALUE---- Colorless Yellow Philomena Blood Negative Negative 09/08/2017 11:13 AM [facility] [place] [facility] Nitrite Positive (A) Negative 09/08/2017 11:13 AM [facility] [place] [facility] Leukocyte Esterase Moderate (A) Negative 09/08/2017 11:1 3 AM [facility] [place] Protein, U Trace mg/dL 09/08/2017 11:13 AM [facility] [place] Comment: ----REFERENCE VALUE---- Negative Trace Glucose Negative Negative mg/dL 09/08/2017 11:13 AM [facility] Ketone Negative Negative mg/dL 09/08/2017 11:13 AM [facility] Bilirubin Negative Negative 09/08/2017 11:13 AM [facility] [place] [facility] pH 6.0 5.0 - 8.0 09/08/2017 11:13 AM [facility] Specific Grants 1.015 1.001 - 1.035 09/08/2017 11:13 AM [facility] Urobilinogen 0.2 0.2 - 1.0 09/08/2017 11:13 AM [facility] LAB Specimen Anatomical Collection Method Collection Time Receive d Time (Source) Location / / Volume Laterality Urine (Urine, 09/08/2017 11:03 09/08/2017 Clean Catch) AM [employer] 11:05 AM [employer] Dimitri Car M.D. LAB URINE ORDERABLES Performing Organization Address City/State/ZIP Code Phon e Number [address] [place] [address] [place] [facility] (ABNORMAL) CRP (C-Reactive Protein) (09/08/2017 10:50 AM W[employer]HOUSE [employer]) Analysis Performed At Patho logist Time Signature C-Reactive 115.8 (H) <=8.0 mg/L 09/08/2017 [facility] Protein (CRP), 11:12 AM [facility] LAB Specimen Anatomical Collection Method Collection Time Receive d Time (Source) Location / / Volume Laterality Blood (Blood, 09/08/2017 10:50 09/08/2017 Venous) AM [employer]SE [employer] 10:52 AM [employer] Dimitri Car M.D. LAB BLOOD ADD-ON Performing Organization Address City/State/ZIP Code Phon e Number [address] [address] [place] [facility] hCG (Human Chorionic Gonadotropin), Quantitative, (09/08/2017 10:50 AM W[employer]HOUSE SHIPPER) P athologist Signature HCG, <0.5 IU/L 09/08/2017 [facility] Quantitative, 11:36 AM [facility] Comment: Biotin has been identified by the doug saucedo as a potential interfering substance. ??Higher concentr ations of biotin may be found in multivitamins, hair/nail supple ments, and workout supplements. ??If the result does not ma tch clinical observations, repeat testing after patient refrains fr om the use of supplements for at least 12 hours. ----REFERENCE VALUE---- <5.0 Negative 5.0-25.0 Indeterminate >25.0 Positive Specimen Anatomical Collection Method Collection Time Receive d Time (Source) Location / / Volume Laterality Blood (Blood, 09/08/2017 10:50 09/08/2017 Venous) AM [employer]HOUSE [employer]PER 10:52 AM [employer] Dimitri Car M.D. LAB BLOOD ADD-ON Performing Organization Address City/State/ZIP Code Phon e Number [facility] [place] [address] [facility] Lipase (09/08/2017 10:50 AM W[employer]HOUSE SH[employer]PER) P athologist Signature Lipase, P 22 13 - 60 U/L 09/08/2017 [facility] 11:13 AM [facility] LAB Specimen Anatomical Collection Method Collection Time Receive d Time (Source) Location / / Volume Laterality Blood (Blood, 09/08/2017 10:50 09/08/2017 Venous) AM [employer]HOUSE SH[employer]PER 10:52 AM [employer] Dimitri Car M.D. LAB BLOOD ADD-ON Performing Organization Address City/[facility]/ZIP Code Phon e Number [facility] [place] [address] [facility] Lactate (09/08/2017 10:50 AM W[employer]HOUSE SH[employer]PER) P athologist Signature Lactate, P 0.7 0.6 - 2.3 09/08/2017 [facility] mmol/L 11:11 AM [facility] LAB Specimen Anatomical Collection Method Collection Time Receive d Time (Source) Location / / Volume Laterality Blood (Blood, 09/08/2017 10:50 09/08/2017 Venous) AM [employer]HOUSE [employer]PER 10:52 AM [employer] Dimitri Car M.D. LAB BLOOD NON ADD-ON Performing Organization Address City/State/ZIP Code Phon e Number [facility] [place] [address] [facility] (ABNORMAL) Hepatic Function Panel (09/08/2017 10:50 AM W[employer]HOUSE SH[employer]PER) Patholo gist Method Time Signature Bilirubin, Total, S 1.1 <=1.2 09/08/2017 [facility] mg/dL 11:12 AM [facility] LAB Bilirubin, Direct, S 0.2 0.0 - 0.3 09/08/2017 [facility] mg/dL 11:12 AM [facility] LAB Aspartate 32 8 - 43 09/08/2017 [facility] Aminotransferase U/L 11:12 AM [facility] Alanine 83 (H) 7 - 45 09/08/2017 [facility] Aminotransferase U/L 11:12 AM [facility] Alkaline 101 (H) 37 - 98 09/08/2017 [facility] Phosphatase, S U/L 11:12 AM [facility] LAB Albumin, S 3.9 3.5 - 5.0 09/08/2017 [facility] g/dL 11:12 AM [facility] LAB Protein, Total, S 6.9 6.3 - 7.9 09/08/2017 [facility] g/dL 11:12 AM [facility] LAB Specimen Anatomical Collection Method Collection Time Receive d Time (Source) Location / / Volume Laterality Blood (Blood, 09/08/2017 10:50 09/08/2017 Venous) AM [employer] 10:52 AM [employer] Dimitri Car M.D. LAB BLOOD ADD-ON Performing Organization Address City/State/ZIP Code Phon e Number [facility] [address] [place] [address] [place] [facility] BMP (Basic Metabolic Panel) (09/08/2017 10:50 AM W[employer]HOUSE SH[employer]PER) P athologist Signature Potassium, P 4.2 3.6 - 5.2 09/08/2017 [facility] mmol/L 11:13 AM [facility] LAB Sodium, P 135 135 - 145 09/08/2017 [facility] mmol/L 11:13 AM [facility] LAB Chloride, P 99 98 - 107 09/08/2017 [facility] mmol/L 11:13 AM [facility] LAB Bicarbonate, P 22 22 - 29 09/08/2017 [facility] mmol/L 11:13 AM [facility] LAB Anion Gap, P 14 7 - 15 09/08/2017 [facility] 11:13 AM [facility] LAB BUN (Blood Urea 7 6 - 21 09/08/2017 [facility] Nitrogen), P mg/dL 11:13 AM [facility] LAB Creatinine 0.62 0.59 - 09/08/2017 [facility] 1.04 mg/dL 11:13 AM [facility] LAB eGFR-Black/Afri >90 >=60 09/08/2017 [facility] can [place] mL/min/BSA 11:13 AM [facility] LAB Comment: ----ADDITIONAL INFORMATION---- Estimated GFR calculated using the 2009 CKD_EPI creatinine equation. eGFR Non-Black/ >90 >=60 mL/min/BSA 09/08/2017 11:13 AM [facility] [place] [facility] LAB Comment: ----ADDITIONAL INFORMATION---- Estimated GFR calculated using the 2009 CKD_EPI creatinine equation. Calcium, Total, P 9.1 8.9 - 10.1 mg/dL 09/08/2017 1 1:13 AM [facility] LAB Glucose, P 104 70 - 140 mg/dL 09/08/2017 11:13 AM [facility] LAB Specimen Anatomical Collection Method Collection Time Receive d Time (Source) Location / / Volume Laterality Blood (Blood, 09/08/2017 10:50 09/08/2017 Venous) AM [employer]SE [employer] 10:52 AM [facility] Dimitri Car M.D. LAB BLOOD ADD-ON Performing Organization Address City/State/ZIP Code Phon e Number [facility] [address] [place] [address] [place] [facility] (ABNORMAL) CBC with Differential (09/08/2017 10:50 AM [facility]) [facility] Method Time Signature Hemoglobin 12.3 11.6 - 09/08/2017 [facility] 15.0 g/dL 10:56 AM [facility] LAB Hematocrit 37.8 35.5 - 09/08/2017 [facility] 44.9 % 10:56 AM [facility] LAB Erythrocytes 4.60 3.92 - 09/08/2017 [facility] 5.13 10:56 AM [facility] x10(12)/L [facility] LAB MCV 82.2 78.2 - 09/08/2017 [facility] 97.9 fL 10:56 AM [facility] LAB RBC Distrib Width 13.9 12.2 - 09/08/2017 [facility] 16.1 % 10:56 AM [facility] LAB Platelet Count 293 157 - 371 09/08/2017 [facility] x10(9)/L 10:56 AM [facility] LAB Leukocytes 15.8 (H) 3.4 - 9.6 09/08/2017 [facility] x10(9)/L 10:56 AM [facility] LAB Neutrophils 13.48 (H) 1.56 - 09/08/2017 [facility] 6.45 10:56 AM [facility] x10(9)/L [facility] LAB Lymphocytes 1.35 0.95 - 09/08/2017 [facility] 3.07 10:56 AM [facility] x10(9)/L [facility] LAB Monocytes 0.87 (H) 0.26 - 09/08/2017 [facility] 0.81 10:56 AM [facility] x10(9)/L [facility] LAB Eosinophils 0.04 0.03 - 09/08/2017 [facility] 0.48 10:56 AM [facility] x10(9)/L [facility] LAB Basophils 0.03 0.01 - 09/08/2017 [facility] 0.08 10:56 AM [facility] x10(9)/L [facility] LAB Specimen Anatomical Collection Method Collection Time Receive d Time (Source) Location / / Volume Laterality Blood (Blood, 09/08/2017 10:50 09/08/2017 Venous) AM [employer]SE [employer]PER 10:52 AM [employer] Dimitri Car M.D. LAB BLOOD ADD-ON Performing Organization Address City/State/ZIP Code Phon e Number [facility] [address] [place] [address] [place] [facility] documented in this encounter Visit Diagnoses Diagnosis Appendicitis Acute - Primary Appendicitis Acute documented in this encounter Administered Medications Inactive Administered Medications - up to 3 most recent administrations Medication Order MAR Action Action Date Dose Rate Site ciprofloxacin in D5W IVPB New Bag 09/08/2017 12:29 PM 400 mg 2 00 mL/hr Right Hand 400 mg (for_CIPRO) W[employer]HOUSE SHIPPER 400 mg, intravenous, at 200 mL/hr, Administer over 60 Minutes, Once, On Wed09/08/17 at 1216, For 1 dose, premix bag, Drug Monitoring Program: Pharmacist to adjust medication order based on comorbities and indication., Indications: Appendicitis ciprofloxacin in D5W IVPB New Bag 09/09/2017 12:23 AM 400 mg 2 00 mL/hr Right Hand 400 mg (for_CIPRO) W[employer]HOUSE SH[employer]PER 400 mg, intravenous, at 200 mL/hr, Administer over 60 Minutes, Once, On Bryanna 09/09/17 at 0030, For 1 dose, Start within 12 hours of last dose. premix bag, Drug Monitoring Program: Pharmacist to adjust medication order based on comorbities and indication., Indications: Prophylaxis, surgical heparin (porcine) 5,000 Given 09/08/2017 2:43 PM WAREHOUSE SHIPPER 5,000 Units Abdominal Tissue unit/0.5 mL injection - ADS Override Pull Starting on Wed09/08/17 at 1426, For 1 dose, Created by cabinet override heparin (porcine) Given 09/09/2017 9:14 AM WAREHOUSE SHIPPER 7,500 Units Left Lower Abdomen injection 7,500 Units 7,500 Units, subcutaneous, 3 times daily, First dose on Bryanna 09/09/17 at 0145 Given 09/09/2017 1:48 AM WAREHOUSE SHIPPER 7,500 Units Right Lower Abdomen HYDROmorphone injection 0.5 mg (for_DILA UDID) Given 09/08/2017 2:40 PM WAREHOUSE SHIPPER 0.5 mg 0.5 mg, intravenous, Every 1 hour PRN, moderate pain or score 4-6 of 10, Starting on Wed09/08/17 at 1253 iohexol 350 mg iodine/mL solution Given 09/08/2017 11:54 AM WAREHOUSE SHIPPER 171 mL Right Hand 171 mL (for_OMNIPAQUE) 171 mL, intravenous, Once in imaging, contrast, Starting on Wed09/08/17 at 1059, For 1 dose ketorolac injection 30 mg Given 09/08/2017 10:57 AM WAREHOUSE SHIPPER 30 mg Right Hand (for_TORADOL) 30 mg, intravenous, Once, On Wed09/08/17 at 1040, For 1 dose, Adult IV push rate: Over 15 seconds. Peds IV push rate: Over 1 minute. 60 mg dose only for IM, not recommended for IV., Drug Monitoring Program: Pharmacist to adjust medication order based on comorbities and indication. lactated ringers New Bag 09/08/2017 2:50 PM WAREHOUSE SHIPPER 20 mL/hr 20 mL/hr 20 mL/hr, intravenous, Continuous, Starting on Wed09/08/17 at 1430, Pre-Op lactated ringers Rate/Dose Verify 09/08/2017 10:00 PM WAREHOUSE SHIPPER 75 mL/hr 75 mL/hr 75 mL/hr, intravenous, Continuous, Starting on Wed09/08/17 at 2000 New Bag 09/08/2017 7:55 PM WAREHOUSE SHIPPER 75 mL/hr 75 mL/hr metroNIDAZOLE in NaCl (iso-osm) New Bag 09/08/2017 1:39 PM WAREHOUSE SHIPPER 500 mg 200 mL/hr IVPB 500 mg (for_FLAGYL) 500 mg, intravenous, at 200 mL/hr, Administer over 30 Minutes, Once, On Wed09/08/17 at 1210, For 1 dose, Indications: Appendicitis metroNIDAZOLE in NaCl (iso-osm) New Bag 09/09/2017 5:36 AM WAREHOUSE SHIPPER 500 mg 200 mL/hr IVPB 500 mg (for_FLAGYL) 500 mg, intravenous, at 200 mL/hr, Administer over 30 Minutes, Every 8 hours, First dose on Wed09/08/17 at 2145, For 2 doses, Start within 8 hours of last dose., Indications: Prophylaxis, surgical New Bag 09/08/2017 9:25 PM WAREHOUSE SHIPPER 500 mg 200 mL/hr morphine injection 4 mg Given 09/08/2017 10:57 AM WAREHOUSE SHIPPER 4 mg 4 mg, intravenous, Every 20 min PRN, moderate pain or score 4-6 of 10, severe pain or score 7-10 of 10, Starting on Wed09/08/17 at 1038, For 3 doses NaCl 0.9 % bolus 1,000 New Bag 09/08/2017 10:58 AM 1,000 mL 2000 mL/hr Right Hand mL WAREHOUSE SHIPPER 1,000 mL, intravenous, at 2,000 mL/hr, Administer over 0.5 Hours, Once, On Wed09/08/17 at 1040, For 1 dose NaCl 0.9% infusion New Bag 09/08/2017 11:27 AM 1,000 mL/hr 1000 mL/hr Right Aiken nd 1,000 mL/hr, WAREHOUSE SHIPPER intravenous, Continuous, Starting on Wed09/08/17 at 1040, For Hydration ondansetron (PF) injection 4 mg (for_ZOF RAN) Given 09/08/2017 2:51 PM WAREHOUSE SHIPPER 4 mg 4 mg, intravenous, Every 20 min PRN, nausea, vomiting, Starting on Wed09/08/17 at 1038, For 2 doses Given 09/08/2017 10:57 AM WAREHOUSE SHIPPER 4 mg ondansetron (PF) injection 4 mg (for_ZOF RAN) 4 mg, intravenous, Every 6 hours PRN, na usea, vomiting, Starting on Wed09/08/17 at 1254 oxyCODONE IR tablet 5 mg (for_ROXICODONE ) Given 09/09/2017 5:45 AM WAREHOUSE SHIPPER 5 mg 5 mg, oral, Every 4 hours PRN, mild pain or score 1-3 of 10, Starting on Wed09/08/17 at 1839 Given 09/09/2017 12:40 AM WAREHOUSE SHIPPER 5 mg sodium chloride 0.9 % injection 10 mL 10 mL, intravenous, As needed, line care, Starting on Wed09/08/17 at 1037, Peripheral Intravenous Catheter and Rapid Infusion Cat heter, prior to blood sampling, post blood transfusion or post blood samplin g sodium chloride 0.9 % injection 10 Given 09/08/2017 11:55 AM WAREHOUSE SHIPPER 10 mL Right Hand mL 10 mL, [...] % injection 80 Given 09/08/2017 11:09 AM WAREHOUSE SHIPPER 80 mL Right Hand mL 80 mL, intravenous, Once, On Wed09/08/17 at 1109, For 1 dose documented in this encounter Active and Recently Administered Medications Times are shown in WAREHOUSE SHIPPER. Scheduled Medication Order 09/07/2017 09/08/2017 09/09/2017 ciprofloxacin in D5W IVPB 400 mg (for_CIPRO) (COMPLETED) 1229 (New Bag - Provider: Keiry Perales R.N.)1330 (Stopped - Provider: Keiry Perales R.N.) 400 [...] Lundberg R.N. - Comment: [facility] not to give had difficulity removing order) 500 mL, intravenous, at 250 mL/hr, Admin ister over 2 Hours, Once, 09/08/17 at 2000, For 1 dose metroNIDAZOLE in NaCl (iso-osm) IVPB 500 mg (for_FLAGYL) (CO MPLETED) 1339 (New Bag - Provider: Keiry Perales R.N.)1401 (Stopped - Provider: Keiry Perales R.N.) 500 mg, intravenous, at 200 mL/hr, Admin ister over 30 Minutes, Once, On 09/08/17 at 1210, For 1 dose, Indications: [...] Provider, Automatic - Reason: Patient not available)1811 ([facility] Unhold - Provider: Transfer Provider, Automatic)2100 [...] 80 mL (COMPLETED) 1109 (Given - Provider: Sarah Vance RBrittaneyTBrittaney(R)(CT), R.T.(R)) 80 mL, intravenous, Once, On Wed09/08/17 at 1109, For 1 dose Continuous Medication Order 09/07/2017 09/08/2017 09/09/2017 lactated ringers (CANCELED) 1450 (New Bag - Prov ider: Zelda Vilchis RBrittaneyNBrittaney) 20 mL/hr, intravenous, Continuous, Starting on Wed09/08/17 [...] available)1440 (Given - Provider: Zelda Vilchis R.N.)1811 ([facility] Unhold - Provider: Transfer Provider, Automatic) 0.5 [...] 1119 (Due)1154 (Given - Provider: Sarah Vance, RBrittaneyTBrittaney(R)(CT), R.T.(R)) 171 mL, intravenous, Once in imaging, co ntrast, Starting on Wed09/08/17 at 1059, For 1 dose lidocaine 50 mL, bupivacaine PF 50 mL 100 mL injection (CAN ELED) 1717 (Given - Provider: Jaquan Monahan D.O.) As needed, Starting on Wed09/08/17 at 1717, Intra-Op morphine injection 4 mg 1057 (Given - Pr ovider: Keiry Perales R.N.)1408 ([facility] Hold - Provider: Transfer Provider, Automatic - Reason: Patient not available)181 ([facility] Unhold - Provider: [...] 1057 (Given - Provider: Keiry Perales R.N.)1408 ([facility] Hold - Provider: Transfer Provider, Automatic - Reason: Patient not available)1451 (Given - Provider: Zelda Vilchis R.N.)181 ([facility] Unhold - Provider: Transfer Provider, Automatic) 4 mg, intravenous, Every 20 min PRN, [place] sea, vomiting, Starting on Wed09/08/17 at 1038, For 2 doses ondansetron (PF) injection 4 mg (for_ZOFRAN) 1408 ([facility] Hold - Provider: Transfer Provider, Automatic - Reason: Patient not available)1448 (Dose Auto Held)181 ([facility] Unhold - Provider: [...] (for_ROXICODONE) 0040 (Given - Provider: Suni Perales RRoverto)0545 (Given - Provider: Suni Perales R.N.) 5 [...] (COMPLETED) 1155 (Given - Provider: Ruben KrishnamurthyTBrittaney(R)(CT), R.T.(R)) 10 mL, intravenous, Once in imaging, kody e care, Starting on Wed09/08/17 at 1107, For 1 dose sodium chloride 0.9 % injection 3 mL 140 8 (OCT Hold - Provider: Transfer Provider, Automatic - Reason: Patient not available)1810 ([facility] Unhold - Provider: Transfer Provider, Automatic) [...] documented as of this encounter Care Teams Reel Cart Operator Relationship Specialty Start Date End Date Blaire Bundy P.A.-C. PCP - General 02/04/17 04/26/19 documented as of this encounter
--- OUTSIDE RECORDS SUMMARY | 2022-07-17 08:08 | XMS_ITS | Encounter Summary ---
:1985 Author Organization [facility] Address [address] [place] [address] Care Team Providers Name Role Phone Blaire [...] How often do you attend christianity or islam More than 4 time s [...] documented as of this encounter Care Teams Film Processor Relationship Specialty Start Date End Date Blaire Bundy P.A.-C. PCP - General 02/04/17 04/26/19 documented as of this encounter
--- OUTSIDE RECORDS SUMMARY | 2022-07-17 08:08 | XMS_ITS | Encounter Summary ---
:1985 Author Organization [facility] Address [address] [place] [address] Care Team Providers Name Role Phone Blaire Bundy P.A.-C. Primary Care Provider [phone] Encounter Details Date Type Department Care Team Description 11/08/2017 Orders Only Department of Rubio Baker Calculus Of Bile Duct Gastroenterology in Marko Marcos M.D. Without Cholangitis [place], [place] [address] Or Cholecystitis With [address] [place], [place] Obstruction ([place] [phone] Dx) [phone] Social History Tobacco Use Types Packs/Day Years [...] How often do you attend scientology or gnosticist More than 4 time s [...] to pay for the very basics like [facility] hat hard 07/09/2020 food, housing, medical care, [...] documented as of this encounter Care Teams Carrier Associate Relationship Specialty Start Date End Date Blaire Bundy P.A.-C. PCP - General 02/04/17 04/26/19 documented as of this encounter
--- OUTSIDE RECORDS SUMMARY | 2022-07-17 08:08 | XMS_ITS | Encounter Summary ---
:1985 Author Organization [facility] Address [address] [place] [address] Care Team Providers Name Role Phone Blaire Bundy P.A.-C. Primary Care Provider [phone] Reason for Visit Reason Comments Shortness of Breath pt was here Wed. and was dx with pleurisy and is not getting better. c/o SOB, heartburn, nausea and has white in her stool Encounter Details Date Type Department Care Team Description 11/07/2017 Emergency [place] [facility] Dimitri Car, Dil ated Common Bile Duct (Primary Dx); Department M.D. 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 - 11/07/2017 8:51 PM CDT YOU SHOULD NOT HAVE ANYTHING TO EAT OR DRINK AFTER 12 MIDNIGHT. YOU DO NEED A OPERATIONS ENGINEER AFTER THE ERCP PLANNED FOR TOMORROW AFTERNOON [...] with hyperactivity disorder presents ambulatory to the [place] [facility] Department with her friend via private [...] a cholecystectomy done. History provided by: Patient accounts payable specialist used: No REVIEW OF SYSTEMS Constitutional: Negative [...] be NPO after midnight and have a stock driver available to drive her home afternoon. [...] the [facility]. Dimitri [facility] US PROCEDURES CT Abdomen Pelvis with IV [...] P athologist Signature HCG, <0.5 IU/L 11/07/2017 [facility] Quantitative, 7:25 PM CDT [facility] Comment: Biotin has been identified by the doug cturer as a potential interfering substance. ??Higher concentr ations of biotin may be found in multivitamins, hair/nail supple ments, and workout supplements. ??If the result does not ma [facility] clinical observations, repeat testing after patient refrains [...] Address City/State/ZIP Code Phon e Number [facility] [address] [place] [address] [facility] Lactate (11/07/2017 6:48 PM CDT) P athologist Signature Lactate, P 0.8 0.6 - 2.3 11/07/2017 [facility] mmol/L 7:08 PM CDT [facility] Specimen Anatomical Collection Method Collection Time Receive d Time (Source) Location / / Volume Laterality Blood (Blood, 11/07/2017 6:48 PM 11/08/19 18 6:51 Venous) CDT PM CDT Dimitri Car M.D. LAB BLOOD NON ADD-ON Performing Organization Address City/State/ZIP Code Phon e Number [facility] [address] [place] [address] [facility] (ABNORMAL) Hepatic Function Panel (11/07/2017 6:48 PM CDT) [facility] Method Time Signature Bilirubin, Total, S 2.0 (H) <=1.2 11/07/2017 [facility] mg/dL 7:14 PM CDT [facility] Bilirubin, Direct, S 1.5 (H) 0.0 - 0.3 11/07/2017 [facility] mg/dL 7:14 PM CDT [facility] Aspartate 775 (H) 8 - 43 11/07/2017 [facility] Aminotransferase U/L 7:26 PM T [facility] Alanine 1877 (H) 7 - 45 11/07/2017 [facility] Aminotransferase U/L 7:26 PM T [facility] Alkaline 275 (H) 37 - 98 11/07/2017 [facility] Phosphatase, S U/L 7:14 PM CDT [facility] Albumin, S 4.0 3.5 - 5.0 11/07/2017 [facility] g/dL 7:14 PM CDT [facility] Protein, Total, S 7.1 6.3 - 7.9 11/07/2017 [facility] g/dL 7:14 PM T [facility] Specimen Anatomical Collection Method Collection Time Receive d Time (Source) Location / / Volume Laterality Blood (Blood, 11/07/2017 6:48 PM 11/08/19 18 6:51 Venous) CDT PM CDT Dimitri Car M.D. LAB BLOOD ADD-ON Performing Organization Address City/State/ZIP Code Phon e Number [facility] [address] [place], [place] [address] [address] [facility] BMP (Basic Metabolic Panel) (11/07/2017 6:48 PM CDT) athologist Signature Potassium, P 4.3 3.6 - 5.2 11/07/2017 [facility] mmol/L 7:11 PM T [facility] Sodium, P 139 135 - 145 11/07/2017 [facility] mmol/L 7:11 PM [facility] Chloride, P 100 98 - 107 11/07/2017 [facility] mmol/L 7:11 PM [facility] Bicarbonate, P 25 22 - 29 11/07/2017 [facility] mmol/L 7:11 PM [facility] Anion Gap, P 14 7 - 15 11/07/2017 [facility] 7:11 PM [facility] BUN (Blood Urea 16 6 - 21 11/07/2017 [facility] Nitrogen), P mg/dL 7:11 PM [facility] Creatinine 0.76 0.59 - 11/07/2017 [facility] 1.04 mg/dL 7:11 PM [facility] eGFR-Black/Afri >90 >=60 11/07/2017 [facility] can Zimbabwean mL/min/BSA 7:11 PM [facility] Comment: ----ADDITIONAL INFORMATION---- Estimated GFR calculated using the 2009 CKD_EPI creatinine equation. eGFR Non-Black/ >90 >=60 mL/min/BSA 11/07/2017 7:11 PM [facility] Zimbabwean [facility] Comment: ----ADDITIONAL INFORMATION---- Estimated GFR calculated using the 2009 CKD_EPI creatinine equation. Calcium, Total, P 9.5 8.9 - 10.1 mg/dL 11/07/2017 7 :11 PM T [facility] Glucose, P 129 70 - 140 mg/dL 11/07/2017 7:11 PM CDT [facility] Specimen Anatomical Collection Method Collection Time Receive d Time (Source) Location / / Volume Laterality Blood (Blood, 11/07/2017 6:48 PM 11/08/19 6:51 Venous) CDT PM CDT Dimitri Car M.D. LAB BLOOD ADD-ON Performing Organization Address City/State/ZIP Code Phon e Number [facility] [address] [place] [address] [facility] Lipase (11/07/2017 6:48 PM CDT) athologist Signature Lipase, P 45 13 - 60 U/L 11/07/2017 [facility] 7:05 PM CDT [facility] Specimen Anatomical Collection Method Collection Time Receive d Time (Source) Location / / Volume Laterality Blood 11/07/2017 6:48 PM 8 6:51 CDT PM CDT Dimitri Car M.D. LAB BLOOD ADD-ON Performing Organization Address City/State/ZIP Code Phon e Number [facility] [place] [address] [facility] CBC with Differential (11/07/2017 6:48 PM CDT) athologist Signature Hemoglobin 13.5 11.6 - 11/07/2017 [facility] 15.0 g/dL 6:54 PM CDT [facility] Hematocrit 42.1 35.5 - 11/07/2017 [facility] 44.9 % 6:54 PM CDT [facility] Erythrocytes 4.97 3.92 - 11/07/2017 [facility] 5.13 6:54 PM CDT [facility] x10(12)/L [facility]- [facility] MCV 84.7 78.2 - 11/07/2017 [facility] 97.9 fL 6:54 PM CDT [facility] RBC Distrib Width 14.9 12.2 - 11/07/2017 [facility] 16.1 % 6:54 PM CDT [facility] Platelet Count 294 157 - 371 11/07/2017 [facility] x10(9)/L 6:54 PM CDT [facility] Leukocytes 7.6 3.4 - 9.6 11/07/2017 [facility] x10(9)/L 6:54 PM CDT [facility] Neutrophils 5.64 1.56 - 11/07/2017 [facility] 6.45 6:54 PM CDT [facility] x10(9)/L [facility] Lymphocytes 1.33 0.95 - 11/07/2017 [facility] 3.07 6:54 PM CDT [facility] x10(9)/L [facility] Monocytes 0.50 0.26 - 11/07/2017 [facility] 0.81 6:54 PM CDT [facility] x10(9)/L [facility] Eosinophils 0.04 0.03 - 11/07/2017 [facility] 0.48 6:54 PM CDT [facility] x10(9)/L [facility] Basophils 0.04 0.01 - 11/07/2017 [facility] 0.08 6:54 PM CDT [facility] x10(9)/L [facility] Specimen Anatomical Collection Method Collection Time Receive d Time (Source) Location / / Volume Laterality Blood (Blood, 11/07/2017 6:48 PM 11/08/19 18 6:51 Venous) CDT PM CDT Dimitri Car M.D. LAB BLOOD ADD-ON Performing Organization Address City/State/ZIP Code Phon e Number [facility] [address] [place] [address] [facility] documented in this encounter Visit Diagnoses [...] intravenous, As needed, line care, Starting on Wed11/07/17 at 1837, Peripheral Intravenous Catheter and Rapid Infusion Catheter, prior to blood sampling, post blood transfusion or post blood sampling sodium chloride injection 10 mL 10 mL, intravenous, As needed, line care, Starting on Wed11/07/17 at 1909 sodium chloride injection 3 mL 3 mL, intravenous, As needed, line care, Starting on Wed11/07/17 at 1837, Prior to and following infusion [...] Schuster R.N.) 40 mg, intravenous, Once, On Wed11/07/17 at 1840, For 1 dose, Administer IV [...] Once in imaging, co ntrast, Starting on Wed11/07/17 at 1909, For 1 dose ondansetron (PF) injection 4 mg (for_ZOFRAN) 1853 (Given - Provider: Cammie Schuster R.N.) 4 mg, intravenous, Every 20 min PRN, trent[place] sea, vomiting, Starting on Wed11/07/17 at 1839, For 2 doses sodium chloride injection 10 mL 1853 (Given - Provider: Cammie Schuster R.N.) 10 mL, intravenous, As needed, line care , Starting on Wed11/07/17 at 1837, Peripheral Intravenous Catheter and Rapid Infusion Catheter, prior to blood sampling, post blood transfusion or post blood sampling sodium chloride injection 10 mL 10 mL, intravenous, As needed, line care, Starting on Wed 8 at 1909 sodium chloride injection 3 mL 3 mL, intravenous, As needed, line care, Starting on Wed11/07/17 at 1837, Prior to and following infusion and between multiple consecutive infusions: sodium chloride 0.9 % injection documented in this encounter Additional Health Concerns Assessment Noted Time PHQ-9 Depression Total Score: 7 04/07/2017 9:39 AM CDT documented as of this encounter Care Teams Control Operator Flow Coat Relationship Specialty Start Date End Date Blaire Bundy P.A.-C. PCP - General 02/04/17 04/26/19 documented as of this encounter
--- OUTSIDE RECORDS SUMMARY | 2022-07-17 08:08 | XMS_ITS | Encounter Summary ---
:1985 Author Organization [facility] Address [address] [place] [address] Care Team Providers Name Role Phone Blaire Bundy P.A.-C. Primary Care Provider Reason for Visit Reason Comments Post-op po lap appy 09-08-17 Outpatient (Routine) - Closed Specialty Diagnoses / Procedures Referred By Contact Refer red To Contact General Surgery Diagnoses Appendicitis Acute Par Review Seng Reyna M.D. [facility] Region Procedures GNS POST OP [address] [place] [address] Referral ID Status Reason Start Date Expiration Date Visits Requ ested Visits Authorized [id number] Closed 09/09/2017 03/08/2018 1 1 Encounter Details Date Type Department Care Team Description 09/17/2017 Office Visit Department of General Seng Reyna M. D. Appendectomy Laparoscopic Status Post (Primary Dx); Surgery in [facility] Hermelinda Hansen, Vianney-Marlyn., P.A. [address] [place] [phone] Appendicitis Acute [address] [address] Social History Tobacco Use Types [...] How often do you attend christianity or sabianist More than 4 time s [...] Comments Blood Pressure 115/48 09/17/2017 9:04 AM SEWING DEPARTMENT SUPERVISOR Pulse 84 09/17/2017 9:04 AM SEWING DEPARTMENT SUPERVISOR Temperature 36.6 ??C (97.9 ??F) 09/17/2017 9:04 AM SEWING DEPARTMENT SUPERVISOR Respiratory Rate - - Oxygen Saturation - - Inhaled Oxygen Concentration - - Weight - - Height - - Body Mass Index - - documented in this encounter Patient Instructions Patient InstructionsHermelinda Hansen P.A.-C., P.A. - 09/17/2017 9:00 AM SEWING DEPARTMENT SUPERVISOR Images from the original note were not [...] heals ??? Fever above 101.0??F (38.3??C) ?? [phone] [place] [address]. All rights reserved. This information is not intended as a substitute for professional medical care. Always follow your healthcare professional's instructions. NG DEPARTMENT SUPERVISOR documented in this encounter Progress Notes Hermelinda [...] from the hospital. She has been taking [id number] pain medications as needed since. She is [...] PATHOLOGY SERVICES Patient Name: PUNEET CLAYTON MR#: [id number] Submitting Physician: JAQUAN MONAHAN DO [id number] Specimen #[id number] Performing Lab: [address] [address] Source: Appendix Clinical History/Pre-Op Appendicitis acute [K35.80] Gross Description Labeled appendix consists of a 6.1 cm in length x 1.2 cm in diameter appendix, with attached mesoappendix (2.4 cm). The serosa is gatica-brown with focal areas of white exudate. The mucosa is red-brown hemorrhagic to necrotic. An area of disruption is not grossly identified. Aircraft Seat Upholsterer sections are submitted in cassette A1. KG/ed [...] ongoing postoperative parameters including pain management with [id number] Tylenolor ibuprofen as needed, ongoing incision care, [...] concerns that arise. Hermelinda Hansen P.A.-C., P.A. NG DEPARTMENT SUPERVISOR documented in this encounter Plan of Treatment Not on filedocumented as of this encounter Visit Diagnoses Diagnosis Appendectomy Laparoscopic Status Post - Primary Appendicitis Acute documented in this encounter Additional Health Concerns Assessment Noted Time PHQ-9 Depression Total Score: 7 04/07/2017 9:39 AM CDT documented as of this encounter Care Teams Client Service Administrator Relationship Specialty Start Date End Date Blaire Bundy P.A.-C. PCP - General 02/04/17 04/26/19 documented as of this encounter
--- OUTSIDE RECORDS SUMMARY | 2022-07-17 08:08 | XMS_ITS | Encounter Summary ---
:1985 Author Organization [facility] Address [address] [place] [address] Care Team Providers Name Role Phone Blaire Bundy P.A.-C. Primary Care Provider Reason for Visit Reason Onset Date Comments Post Hospital Follow-up 09/09/2017 [place] 09/09/17 Encounter Details Date Type Department Care Team Description 09/09/2017 Clinical Communication Department of [facility] Medicine, Barbara Barrett R.N. Follow-up ([place] [address] 09/09/17) Clinic, in [address] [address] [facility] [phone] [place], [place] (Work) [phone] Social History Tobacco Use [...] How often do you attend jainism or buddhist More than 4 time s [...] feedback: Post hospital near miss assessment: none TS SPECIALIST Telephone Encounter - Barbara Bang R.N. - 09/09/2017 2:07 PM SPORTS SPECIALIST Discharge date 09/09/17 at 1230. Reason for hospitalization Admission PRINCIPAL DIAGNOSIS Appendicitis Acute. Follow up scheduled for 09/20/17 @ [address] Reyna (surgical f/u). TS SPECIALIST documented in this encounter Plan of Treatment Not on filedocumented as of this encounter Visit Diagnoses Not on filedocumented in this encounter Additional Health Concerns Assessment Noted Time PHQ-9 Depression Total Score: 7 04/07/2017 9:39 AM CDT documented as of this encounter Care Teams Power Barker Operator Relationship Specialty Start Date End Date Blaire Bundy P.A.-C. PCP - General 02/04/17 04/26/19 documented as of this encounter
--- OUTSIDE RECORDS SUMMARY | 2022-07-17 08:08 | XMS_ITS | Encounter Summary ---
:1985 Author Organization [facility] Address [address] [place] [address] Care Team Providers Name Role Phone Blaire Bundy P.A.-C. Primary Care Provider [phone] Encounter Details Date Type Department Care Team Description 09/09/2017 Orders Only Department of General Lydia Crowley, Surgery in [address] [address] [place] [address] [facility] [phone] Social History Tobacco Use Types Packs/Day Years [...] How often do you attend islam or scientologist More than 4 time s [...] documented as of this encounter Care Teams Art Teacher Relationship Specialty Start Date End Date Blaire Bundy P.A.-C. PCP - General 02/04/17 04/26/19 documented as of this encounter
--- OUTSIDE RECORDS SUMMARY | 2022-07-17 08:08 | XMS_ITS | Encounter Summary ---
:1985 Author Organization [facility] Address [address] [place] [address] Care Team Providers Name Role Phone Blaire Bundy P.A.-C. 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 CHOLANGIOPANCREATOGRAPHY [place], [place] [address] [address] [place], [place] [phone] Social History Tobacco Use Types Packs/Day [...] How often do you attend temple or druze More than 4 time s [...] Used ??? Alcohol use No Lives in [place], working at the [employer] there. Has two sons, the [...] - 11/08/2017 3:08 PM CDTAssociated Order(s): ERCP [facility] Patient Name: Carol Cooley Procedure Date: [...] anesthesia, benzocaine spray and indomethacin 100 mg [place] Complications: No immediate complications. Estimated blood loss: [...] 1 : Perianal for CRE Swab Perianal [facility] SURVEILLANCE PCR Rubio Baker M.D. 11/08/2017 1539 Drains None Estimated Blood Loss No blood loss documented. Implants * No implants in log * Rubio Baker M.D. documented in this encounter Plan of Treatment Scheduled Referrals Name Type Priority Associated Diagnoses Order S [facility] General Surgery - Outpatient Referral [...] Duct Without Cholangitis Or Cholecystitis With Obstruction [facility] SURVEILLANCE PCR Routine 11/08/2017 Calculus Of [...] Baker M.D. IMG FLUOROSCOPY PROCEDURES KPC and NDM Surveillance PCR Perianal (11/08/2017 3:39 PM CDT) [facility] Method Time Signature Specimen RECTAL SWAB 11/09/2017 [facility] source 1:40 PM CDT [facility] KPC PCR Negative Not 11/09/2017 [facility] Applicable 1:40 PM CDT [facility] NDM PCR Negative Not 11/09/2017 [facility] Applicable 1:40 PM CDT [facility] Comment: ----ADDITIONAL INFORMATION---- This test was developed and its performa nce characteristics determined by [facility] in a manner consistent with CLIA requirements. This test has not been cleared or approved by the [place] d and Drug Administration. Specimen (Source) Anatomical Collection Method Collection Time Re ceived Time Location / / Volume Laterality Swab (Perianal) 11/08/2017 3:39 PM CDT Rubio Baker M.D. LAB MICROBIOLOGY - GENERAL O RDERABLES Performing Organization Address City/State/ZIP Code Phon e Number [facility] - [address] [place] [address] [facility] ERCP (11/08/2017 3:08 PM CDT) Specimen (Source) Anatomical Location Collection Method / Collectio n Time Received Time / Laterality Volume Narrative This result has an attachment that is no t available. Procedure Note Rubio Baker M.D. - 11/08/2017 3:0 8 PM CDT [facility] Patient Name: Carol Cooley Procedure Date: [...] benzocaine spray an d indomethacin 100 mg CO Complications: No immediate complication s. Estimated blood [...] Vidhi Sorensen R.N.) As needed, Starting on 11/08/17 at 1602, Intra-Op ioversol 240 mg [...] documented as of this encounter Care Teams Account Strategist Relationship Specialty Start Date End Date Blaire Bundy P.A.-C. PCP - General 02/04/17 04/26/19 documented as of this encounter
--- OUTSIDE RECORDS SUMMARY | 2022-07-17 08:08 | XMS_ITS | Encounter Summary ---
:1985 Author Organization [facility] Address [address] [place] [address] Care Team Providers Name Role Phone Blaire Bundy P.A.-C. 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 [address] [place] [address] Pain Right Upper Quadrant (Primary Dx); General Surgery in [place] s[place] M.D. 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 [address] [address] Social History Tobacco Use Types [...] How often do you attend restoration or catholic More than 4 time s [...] Type and screen (11/11/2017 12:30 PM CDT) [facility] gist Method Time Signature ABO Group A 11/11/2017 [facility] 1:05 PM CDT [facility] Rh Type NEG 11/11/2017 [facility] 1:05 PM CDT [facility] Antibody Screen NEG 11/11/2017 [facility] 1:16 PM CDT [facility] Type & Screen 11/14/2017 [facility] Expiration 23:59 [facility] ELXM Eligible Y 11/11/2017 [facility] 1:16 PM CDT [facility] Specimen Anatomical Collection Method Collection Time Receive d Time (Source) Location / / Volume Laterality Blood (Blood, 11/11/2017 12:30 11/11/2017 Venous) PM CDT 12:41 PM CDT Seng Reyna M.D. LAB BLOOD BANK TEST ORDERABL ES Performing Organization Address City/State/ZIP Code Phon e Number [facility] [address] [facility] [place] [address] [facility] Lipase (11/11/2017 12:18 PM CDT) athologist Signature Lipase, S 42 13 - 60 U/L 11/11/2017 [facility] 1:01 PM CDT [facility] Specimen Anatomical Collection Method Collection Time Receive d Time (Source) Location / / Volume Laterality Blood (Blood, 11/11/2017 12:18 11/11/2017 Venous) PM CDT 12:40 PM CDT Seng Reyna M.D. LAB BLOOD ADD-ON Performing Organization Address City/State/ZIP Code Phon e Number [facility] [address] [place] [address] [facility] (ABNORMAL) CMP (Comprehensive Metabolic Panel) (11/11/2017 12:18 PM CDT) athologist Signature Potassium, S 5.4 (H) 3.6 - 5.2 11/11/2017 [facility] mmol/L 1:01 PM CDT [facility] Sodium, S 138 135 - 145 11/11/2017 [facility] mmol/L 1:01 PM CDT [facility] Chloride, S 103 98 - 107 11/11/2017 [facility] mmol/L 1:01 PM CDT [facility] Bicarbonate, S 23 22 - 29 11/11/2017 [facility] mmol/L 1:01 PM CDT [facility] Anion Gap 12 7 - 15 11/11/2017 [facility] 1:01 PM CDT [facility] BUN (Blood Urea 35 (H) 6 - 21 11/11/2017 [facility] Nitrogen), S mg/dL 1:01 PM CDT [facility] Creatinine 0.69 0.59 - 11/11/2017 [facility] 1.04 mg/dL 1:01 PM [facility] eGFR >90 >=60 11/11/2017 [facility] Non-Black/Afric mL/min/BSA 1:01 PM [facility] Comment: ----ADDITIONAL INFORMATION---- Estimated GFR calculated using the 2009 CKD_EPI creatinine equation. eGFR Black/ >90 >=60 mL/min/BSA 11/11/2017 1:[address] [facility] Comment: ----ADDITIONAL INFORMATION---- Estimated GFR calculated using the 2009 CKD_EPI creatinine equation. Calcium, Total, S 8.9 8.9 - 10.1 11/11/2017 1:01 PM [facility] mg/dL [facility] LAB Glucose, S 153 (H) 70 - 140 mg/dL 11/11/2017 1:01 PM [facility] Protein, Total, S 6.0 (L) 6.3 - 7.9 g/dL 11/11/2017 1:01 P M [facility] LAB Albumin, S 3.4 (L) 3.5 - 5.0 g/dL 11/11/2017 1:01 PM [facility] LAB Aspartate 23 8 - 43 U/L 11/11/2017 1:01 PM [facility] Aminotransferase (AST), S [facility] LAB Alkaline Phosphatase, S 124 (H) 37 - 98 U/L 11/11/2017 1:0 1 PM [facility] LAB Alanine Aminotransferase 370 (H) 7 - 45 U/L 11/11/2017 1:0 1 PM [facility] (ALT), S [facility] LAB Bilirubin, Total, S 0.3 <=1.2 mg/dL 11/11/2017 1:01 PM [facility] Specimen Anatomical Collection Method Collection Time Receive d Time (Source) Location / / Volume Laterality Blood (Blood, 11/11/2017 12:18 11/11/2017 Venous) PM CDT 12:40 PM CDT Seng Hartzheim M.D. LAB BLOOD ADD-ON Performing Organization Address City/State/ZIP Code Phon e Number [facility] [address] [place] [address] [facility] (ABNORMAL) CBC with Differential (11/11/2017 12:18 PM CDT) [facility] Method Time Signature Hemoglobin 9.2 (L) 11.6 - 11/11/2017 [facility] 15.0 g/dL 12:45 PM CDT [facility] Hematocrit 29.6 (L) 35.5 - 11/11/2017 [facility] 44.9 % 12:45 PM CDT [facility] Erythrocytes 3.39 (L) 3.92 - 11/11/2017 [facility] 5.13 12:45 PM CDT [facility](12[facility] MCV 87.3 78.2 - 11/11/2017 [facility] 97.9 fL 12:45 PM CDT [facility] RBC Distrib Width 15.4 12.2 - 11/11/2017 [facility] 16.1 % 12:45 PM CDT [facility] Platelet Count 374 (H) 157 - 371 11/11/2017 [facility] x10(9)/L 12:45 PM CDT [facility] Leukocytes 15.1 (H) 3.4 - 9.6 11/11/2017 [facility] x10(9)/L 12:45 PM CDT [facility] Neutrophils 10.79 (H) 1.56 - 11/11/2017 [facility] 6.45 12:45 PM CDT [facility] Lymphocytes 3.57 (H) 0.95 - 11/11/2017 [facility] 3.07 12:45 PM CDT [facility] Monocytes 0.65 0.26 - 11/11/2017 [facility] 0.81 12:45 PM CDT [facility] Eosinophils 0.03 0.03 - 11/11/2017 [facility] 0.48 12:45 PM CDT [facility] Basophils 0.05 0.01 - 11/11/2017 [facility] 0.08 12:45 PM CDT [facility](9[facility] Specimen Anatomical Collection Method Collection Time Receive d Time (Source) Location / / Volume Laterality Blood (Blood, 11/11/2017 12:18 11/11/2017 Venous) PM CDT 12:40 PM CDT Seng Reyna M.D. 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 PCP - General 02/04/17 documented as of this encounter
--- OUTSIDE RECORDS SUMMARY | 2022-07-17 08:08 | XMS_ITS | Encounter Summary ---
:1985 Author Organization [facility] Address [address] [place] [address] Care Team Providers Name Role Phone Blaire Bundy P.A.-C. 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 Tender[address] [phone] Social History Tobacco Use Types Packs/Day Years [...] documented as of this encounter Care Teams Table Games Manager Relationship Specialty Start Date End Date Blaire Bundy P.A.-C. PCP - General 02/04/17 04/26/19 documented as of this encounter
--- OUTSIDE RECORDS SUMMARY | 2022-07-17 08:08 | XMS_ITS | Encounter Summary ---
:1985 Author Organization [facility] Address [address] [place] [address] Care Team Providers Name Role Phone Blaire Bundy P.A.-C. 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 PAR REVIEW Rubio Baker [facility] [place] [facility] Procedures [place] [facility] [address] [address] Referral ID Status Reason Start Date Expiration Date Visits V isits Requested Authorized [id number] Closed Specialty 11/08/2017 05/07/2018 1 1 Services Required Reason for Visit Auth/Cert Specialty Diagnoses / Procedures Referred By Contact Refer red To Contact Diagnoses 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 Without Cholangitis [place]IAH RIVERA [address] [place] [address] [place] Rivera Obstruction [phone] Social History Tobacco Use Types Packs/Day [...] How often do you attend christianity or orthodoxy More than 4 time s [...] Everywhere. About Your ERCP, (Endoscopic Retrograde Cholangiopancreatography) (Kazakh) documented in this encounter Medications at Time [...] as of this encounter H&P Notes Rubio Baekr M.D. - 11/08/2017 9:43 AM CDT CHIEF [...] Used ??? Alcohol use No Lives in [place], working at the [employer] there. Has two sons, the youngest [...] - 11/08/2017 3:08 PM CDTAssociated Order(s): ERCP [facility] [place] [facility] Patient Name: Carol Cooley Procedure Date: [...] anesthesia, benzocaine spray and indomethacin 100 mg [place] Complications: No immediate complications. Estimated blood loss: [...] 1 : Perianal for CRE Swab Perianal [facility] SURVEILLANCE PCR Rubio Baker M.D. 11/08/2017 1539 Drains None Estimated Blood Loss No blood loss documented. Implants * No implants in log * Rubio Baker M.D. documented in this encounter Plan of Treatment Scheduled Referrals Name Type Priority Associated Diagnoses Order S [facility] General Surgery - Outpatient Referral Routine Calculus [...] Duct Without Cholangitis Or Cholecystitis With Obstruction [facility] SURVEILLANCE PCR Routine 11/08/2017 Calculus Of [...] Surveillance PCR Perianal (11/08/2017 3:39 PM CDT) [facility] gist Method Time Signature Specimen RECTAL SWAB 11/09/2017 [facility] source 1:40 PM CDT [facility] KPC PCR Negative Not 11/09/2017 [facility] Applicable 1:40 PM CDT [facility] NDM PCR Negative Not 11/09/2017 [facility] Applicable 1:40 PM CDT [facility] Comment: ----ADDITIONAL INFORMATION---- This test was developed and its performa nce characteristics determined by [facility] in a manner consistent with CLIA [...] Code Phon e Number [facility] - [address] [id number] [facility] ERCP (11/08/2017 3:08 PM CDT) Specimen (Source) Anatomical Location Collection Method / Collectio n Time Received Time / Laterality Volume Narrative This result has an attachment that is no t available. Procedure Note Rubio Baker M.D. - 11/08/2017 3:0 8 PM CDT [facility] [place] [facility] Patient Name: Carol Cooley Procedure Date: 11/08/2017 3:08 PM Date of : 1985 Age: 31 Gender: Female Procedure: ERCP Providers: Rubio Baker, Rubio Baker (Ordering Provider) Referring Provider: Rubio Baker Pre-op [...] benzocaine spray an d indomethacin 100 mg [place] Complications: No immediate complication s. Estimated blood [...] solution (CANCELED) 1604 (Given - Provid er: Ruibo Baker M.D. - Comment: irrigated in common bile duct - not IV) As needed, Starting on 11/08/17 at 1604, Intra-Op ondansetron (PF) injection [...] Every 6 hours PRN, nausea, vomiting, Starting Wed11/08/17 at 1646, For [...] documented as of this encounter Care Teams Vine Fruit Farming Supervisor Relationship Specialty Start Date End Date Blaire Bundy P.A.-C. PCP - General 02/04/17 04/26/19 documented as of this encounter
--- OUTSIDE RECORDS SUMMARY | 2022-07-17 08:08 | XMS_ITS | Encounter Summary ---
:1985 Author Organization [facility] Address [address] [place] [address] Care Team Providers Name Role Phone Blaire Bundy P.A.-C. Primary Care Provider [phone] Reason for Visit Reason Comments Chest Pain Pain With Breathing Encounter Details Date Type Department Care Team Description 11/04/2017 [facility] Berny Garcia M.D. [address] [place] [address] Pleurisy (Primary Dx) Department Erlin Garcia M.D. 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 Pleurisy (Iraqi)documented in this encounter Medications at Time of [...] family history of her father having an ND in his 50s she is presenting now [...] Troponin T, S <0.01 <0.01 ng/mL 11/04/2017 [facility] 6:03 PM CDT [facility] Comment: Biotin has been identified by the doug vegar as a potential interfering substance. ??Higher concentr ations of biotin may be found in multivitamins, hair/nail supple ments, and workout supplements. ??If the result does not [facility] clinical observations, repeat testing after patient refrains fr om the use of supplements for at least 12 hours. Specimen Anatomical Collection Method Collection Time Receive d Time (Source) Location / / Volume Laterality Blood (Blood, 11/04/2017 5:43 PM 11/05/19 18 5:43 Venous) CDT PM CDT Berny Garcia M.D. LAB BLOOD ADD-ON Performing Organization Address City/State/ZIP Code Phon e Number [facility] [address] [place] [address] [facility] (ABNORMAL) D-Dimer (11/04/2017 5:43 PM CDT) athologist Signature D-Dimer, P 2.06 (H) <0.50 11/04/2017 [facility] mcg/mL FEU 5:59 PM CDT [facility] Comment: ----ADDITIONAL INFORMATION---- Results of [...] Code Phon e Number [facility] [address] [place] [address] [facility] (ABNORMAL) CMP (Comprehensive Metabolic Panel) (11/04/2017 5:43 PM CDT) athologist Signature Potassium, P 4.3 3.6 - 5.2 11/04/2017 [facility] mmol/L 6:03 PM [facility] Sodium, P 139 135 - 145 11/04/2017 [facility] mmol/L 6:03 PM [facility] Chloride, P 100 98 - 107 11/04/2017 [facility] mmol/L 6:03 PM [facility] Bicarbonate, P 26 22 - 29 11/04/2017 [facility] mmol/L 6:03 PM [facility] Anion Gap, P 13 7 - 15 11/04/2017 [facility] 6:03 PM [facility] BUN (Blood Urea 11 6 - 21 11/04/2017 [facility] Nitrogen), P mg/dL 6:03 PM [facility] Creatinine 0.69 0.59 - 11/04/2017 [facility] 1.04 mg/dL 6:03 PM [facility] eGFR-Black/Afri >90 >=60 11/04/2017 [facility] can Maldivian mL/min/BSA 6:03 PM [facility] Comment: ----ADDITIONAL INFORMATION---- Estimated GFR calculated using the 2009 CKD_EPI creatinine equation. eGFR Non-Black/ >90 >=60 mL/min/BSA 11/04/2017 6:03 PM [facility] Maldivian [facility] Comment: ----ADDITIONAL INFORMATION---- Estimated GFR calculated using the 2009 CKD_EPI creatinine equation. Calcium, Total, P 9.6 8.9 - 10.1 11/04/2017 6:03 [facility]dL [facility] Glucose, P 98 70 - 140 mg/dL 11/04/2017 6:03 PM [facility] Protein, Total, P 7.5 6.3 - 7.9 g/dL 11/04/2017 6:03 P M [facility] Albumin, P 3.9 3.5 - 5.0 g/dL 11/04/2017 6:03 PM [facility] Aspartate 1084 (H) 8 - 43 U/L 11/04/2017 6:23 PM [facility] Aminotransferase (AST), P [facility] Alkaline Phosphatase, P 167 (H) 37 - 98 U/L 11/04/2017 6:0 3 PM [facility] Alanine Aminotransferase 1350 (H) 7 - 45 U/L 11/04/2017 6:2 3 PM [facility] (ALT), [facility] Bilirubin, Total, P 2.8 (H) <=1.2 mg/dL 11/04/2017 6:03 PM [facility] Specimen Anatomical Collection Method Collection Time Receive d Time (Source) Location / / Volume Laterality Blood (Blood, 11/04/2017 5:43 PM 11/05/19 18 5:43 Venous) CDT CDT Berny Garcia M.D. LAB BLOOD ADD-ON Performing Organization Address City/State/ZIP Code Phon e Number [facility] [address] [facility] [place] [address] [facility] (ABNORMAL) CBC with Differential (11/04/2017 5:43 PM CDT) [facility] Method Time Signature Hemoglobin 13.5 11.6 - 11/04/2017 [facility] 15.0 g/dL 5:46 PM [facility] Hematocrit 41.5 35.5 - 11/04/2017 [facility] 44.9 % 5:46 PM [facility] Erythrocytes 5.08 3.92 - 11/04/2017 [facility] 5.13 5:46 PM [facility] HEALTH x10(12)/L [facility] MCV 81.7 78.2 - 11/04/2017 [facility] 97.9 fL 5:46 PM CDT [facility] RBC Distrib Width 13.9 12.2 - 11/04/2017 [facility] 16.1 % 5:46 PM CDT [facility] Platelet Count 278 157 - 371 11/04/2017 [facility] x10(9)/L 5:46 PM CDT [facility] Leukocytes 4.8 3.4 - 9.6 11/04/2017 [facility] x10(9)/L 5:46 PM CDT [facility] Neutrophils 3.37 1.56 - 11/04/2017 [facility] 6.45 5:46 PM CDT [facility] x10(9)/L [facility] Lymphocytes 1.11 0.95 - 11/04/2017 [facility] 3.07 5:46 PM CDT [facility] x10(9)/[facility] Monocytes 0.23 (L) 0.26 - 11/04/2017 [facility] 0.81 5:46 PM CDT HEALTH x10(9)/L [facility] Eosinophils 0.07 0.03 - 11/04/2017 [facility] 0.48 5:46 PM CDT [facility] x10(9)/[facility] Basophils 0.03 0.01 - 11/04/2017 [facility] 0.08 5:46 PM CDT HEALTH x10(9)/L [facility] Specimen Anatomical Collection Method Collection Time Receive d Time (Source) Location / / Volume Laterality Blood (Blood, 11/04/2017 5:43 PM 11/05/19 18 5:43 Venous) CDT PM CDT Berny Garcia M.D. LAB BLOOD ADD-ON Performing Organization Address City/State/ZIP Code Phon e Number [facility] [address] [facility] [place] [address] [facility] DX Chest AP or PA [...] Signature Ventricular Rate 76 BPM MUSE ECG/Min VA Interval 158 ms MUSE QRSD Interval 82 ms MUSE QT Interval 358 ms MUSE QTC Interval 402 ms MUSE P [place] 47 degrees MUSE R [place] 38 degrees MUSE T Wave [place] 33 degrees MUSE Specimen Anatomical Collection Method [...] (COMPLETED) 0000 (Given - Provider: Hoda Ponce RRoverto) 30 mg, intravenous, Once, On Bryanna 11/04/17 [...] (for_GI COCKTAIL) (COMPLETED) 172 (Given - Provider: Ruben AbernathyNBrittaney) 45 mL, oral, Once, On Bryanna 11/04/17 [...] Order 11/02/2017 11/03/2017 11/04/2017 NaCl 0.9% infusion 1833 (New Bag - Provider: Hoda Ponce R.N.)2043 (Stopped - Provider: Hoda Ponce R.N.) 100 mL/hr, intravenous, Continuous, Star ting on Bryanna 11/04/17 at 1809, For Hydration PRN Medication Order 11/02/2017 11/03/2017 11/04/2017 iohexol 350 mg iodine/mL solution 125 mL (for_OMNIPAQUE) (COMPLE PRASHANT) 185 (Given - Provider: Marlene Garcia(R)) 125 mL, [...] as of this encounter Care Teams Industrial Training Specialist Relationship Specialty Start Date End Date Blaire Bundy P.A.-C. PCP - General 02/04/17 04/26/19 documented as of this encounter
--- OUTSIDE RECORDS SUMMARY | 2022-07-17 08:09 | XMS_ITS | Encounter Summary ---
:1985 Author Organization [facility] Address [address] [place] [address] Care Team Providers Name Role Phone Blaire Bundy P.A.-C. Primary Care Provider Encounter Details Date Type Department Care Team Description 08/02/2017 Nurse Triage Department of [facility] Anastasia Sands, Medicine, [facility], R.N. in [address] [place] [address] [place] [address] [phone] Social History Tobacco Use Types Packs/Day Years [...] How often do you attend cheondoism or shinto More than 4 time s [...] as of this encounter Care Teams Nuclear Medicine Chief Technologist Relationship Specialty Start Date End Date Blaire Bundy P.A.-C. PCP - General 02/04/17 04/26/19 documented as of this encounter
--- OUTSIDE RECORDS SUMMARY | 2022-07-17 08:09 | XMS_ITS | Encounter Summary ---
:1985 Author Organization [facility] Address [address] [place] [address] Care Team Providers Name Role Phone Catracho Bundy P.A.-C. Primary Care Provider Encounter Details Date Type Department Care Team Description 06/08/2017 Hospital Encounter HX [facility] Leonora Melchor, Maureen TARIQ, C.N.P. [address] [place], [place] [address] (Wo rk) Social History [...] status: none position: vertex via ultrasound in [place]. Electronically Signed By: LEONORA VILLASEÑOR R.N., WHNP-BC On: 06/08/2017 09:29 AM Source: [facility] POWERCHART Document Id: [id number] documented in this encounter Nursing Notes VoCleopatra corona L.P.N. - 06/08/2017 9:02 AM CDT Ambulatory Patient Education The following Patient Education Materials have been given to the patient: Patient Education Materials: Veneer Lathe Operator What Is Group B Strep? Veneer Lathe Operator What Is Group B Strep? Group B [...] with a group B strep infection ?? [phone] [facility], [address] [place] [address], [place] [address]. All rights reserved. This information is not intended as a substitute for professional medical care. Always follow your healthcare professional's instructions. This document has images extracted. Please consider using [employer] for all your patient education needs. Source: [facility] POWERCHART Document Id: [id number] documented in this encounter Miscellaneous Notes Miscellaneous - Leonora Villaseñor R.N., WHNP-BC - 06/08/2017 9:39 AM CDT Ambulatory Discharge Medication List [address] [facility] [address] [place], [place] [id number] Visit Information Name: PUNEET COOLEY [facility] Number: [id number] Current Date: 06/08/2017 09:39:23 Attending Provider: LEONORA [facility]ILLASEÑOR R.N., [facility] Primary Care Provider: CATRACHO NAZARIO [...] WHNP-BC Signed On:08-JUN-2017 09:39:20 Additional Information: Source: [facility] POWERCHART Document Id: [id number] Miscellaneous - Leonora Villaseñor R.N., WHNP-BC - 06/08/2017 9:39 AM CDT Ambulatory Patient Summary [facility] [address], [address] [place], [place] [phone] Visit Information Name: PUNEET COOLEY [facility] Number: [id number] Current Date: 06/08/2017 09:39:23 [...] with a group B strep infection ?? [phone] [place] [address]. All rights reserved. This information is not [...] if you dont have one. Go to [email or web address] and click on Create Your Account. Then, follow the directions to complete the online form. Youll be asked for your [facility] number which you can find at the top of this document. Your Goals/Additional instructions: This document has images extracted. Please consider using [employer] for all your patient education needs. Source: [facility] POWERCHART Document Id: [id number] Miscellaneous - Cleopatra Laguerre L.P.N. - 06/08/2017 9:05 AM CDT Adult Soil Biology Teacher Intake/History Adult Soil Biology Teacher Intake/History Entered On: 06/08/2017 9:10 CDT Performed [...] Given By : Patient Languages : Greenlandic Is Patient Female and 13-50 no hysterectomy [...] - 06/08/2017 9:05 CDT [facility] Document Id: [id number] CDT!50 documented in this encounter Plan of Treatment Not on filedocumented as of this encounter Visit Diagnoses Not on filedocumented in this encounter Additional Health Concerns Assessment Noted Time PHQ-9 Depression Total Score: 7 04/07/2017 9:39 AM CDT documented as of this encounter Care Teams Pattern Filer Relationship Specialty Start Date End Date Catracho Bundy P.A.-C. PCP - General 02/04/17 04/26/19 documented as of this encounter
--- OUTSIDE RECORDS SUMMARY | 2022-07-17 08:09 | XMS_ITS | Encounter Summary ---
:1985 Author Organization [facility] Address [address] [place] [address] Care Team Providers Name Role Phone Unavailable Primary Care Provider Unavailable Encounter Details Date Type Department Care Team Description 01/08/2017 Hospital Encounter [facility] [address] [place] [phone] (Wo rk) Social History Tobacco Use [...] How often do you attend yazidism or scientology More than 4 time s [...] 13:39:18 CDT From: LEONORA HOLMAN MD To: [facility] Nurse Amarilys; Sent: 01/08/2017 13:39:18 CDT Subject: RE: *General Message Looks okay. Just needs to follow up with OB next week. ThanksLeonora From: CRAIG TOLENTINO LPN ([facility] Nurse Panda) To: LEONOAR HOLMAN MD; Sent: 01/08/2017 08:58:35 CDT Subject: *General Message Patient came in for BP check and was seen by you yesterday in the clinic. Today's BP 139/78 Pulse-100 137/75 Pulse-91 Please advise. Thank you. Source: [facility] POWERCHART Document Id: [id number] Electronically signed by Conversion, [facility] Garbage Depot Worker [id number] at 02/01/2017 11:08 PM CDT Miscellaneous - [...] TOLENTINO LPN - 01/08/2017 8:53 CDT Source: [employer] Document Id: [id number] CDT!11 Miscellaneous - Craig Tolentino, L.P.N. - [...] TOLENTINO LPN - 01/08/2017 8:50 CDT Source: [employer] Document Id: [id number] CDT!9 documented in this encounter Plan of Treatment Not on filedocumented as of this encounter Visit Diagnoses Not on filedocumented in this encounter Additional Health Concerns Assessment Noted Time PHQ-9 Depression Total Score: 11 12/13/2014 9:50 AM CD T documented as of this encounter
--- OUTSIDE RECORDS SUMMARY | 2022-07-17 08:09 | XMS_ITS | Encounter Summary ---
:1985 Author Organization [facility] Address [address] [place] [address] Care Team Providers Name Role Phone Catracho Bundy P.A.-C. Primary Care Provider Encounter Details Date Type Department Care Team Description 02/22/[address] [facility] Ashwin Bundy PBrittaneyABrittaney-CBrittaney [address] [place] [address] (Wo rk) Social History Tobacco Use Types [...] How often do you attend sabianist or confucianism More than 4 time s [...] NAZARIO PA-C On: 02/24/2017 07:37 AM Source: [facility] POWERCHART Document Id: [id number] Leonora Barrios C.M.A. - 02/22/2017 10:36 AM CDT [facility] Exam [facility] Exam Entered On: 02/22/2017 10:37 CDT Performed On: 02/22/2017 10:36 CDT by LEONORA BARRIOS [facility] Chief Complaint and History Chief Complaint : Eye pain Pain Symptoms : Yes Smoking Status : Light tobacco smoker LEONORA BARRIOS [facility] - 02/22/2017 10:36 CDT Vision Testing Right Eye Vision Testing : With glasses - primary, 20/25 Left Eye Vision Testing : With glasses - primary, 20/30 Both Eyes Vision Testing : With glasses - primary, 20/25 LEONORA BARRIOS COIN COLLECTOR - 02/22/2017 10:36 CDT Pain Scale Pain Scale Verbal 0-10 : Open LEONORA BARRIOS CMA - 02/22/2017 10:36 CDT Pain Pain Assessment Grid Pain 1 Location : Eye Laterality : Left Intensity : 6 LEONORA BARRIOS CMA - 02/22/2017 10:36 CDT Source: [facility] [employer] Document Id: [id number] CDT!17 documented in this encounter Miscellaneous Notes Miscellaneous - Catracho Nazario - 02/22/2017 10:44 AM CDT Work Excuse February 22, 2017 PUNEET FORREST [address] [facility] [id number] Dear PUNEET CLAYTON, You were examined in my office on: 02/22/17 Reason for work excuse: Medical Illness ( X ) Yes ( _ ) No Injury ( _ ) Yes ( _ ) No Is excused from all work: ( X ) Yes ( _ ) No Please excuse Puneet from work today. Sincerely, CATRACHO NAZARIO [address] [address] Electronic Signature Electronically Signed By: CATRACHO NAZARIO PA-C On: February 22, 2017 This document has images extracted. Source: [facility] [employer] Document Id: [id number] Miscellaneous - Leonora Barrios C.M.ABrittaney - 02/22/2017 10:19 AM CDT Adult Starter Mechanic Intake/History Adult Starter Mechanic Intake/History Entered On: 02/22/2017 10:23 CDT Performed On: 02/22/2017 10:19 CDT by LEONORA BARRIOS [facility] Intake Chief Complaint : LEFT Eye, yesterday [...] Preferred Communication Mode : Verbal Languages : Sri Lankan Is Patient Female and 13-50 no hysterectomy [...] Use/Advised to Quit : Yes LEONORA BARRIOS [facility] - 02/22/2017 10:19 CDT Caffeine Use Grid Caffeine Use : Current Type : Coffee, Soft drinks Frequency : Occasionally LEONORA BARRIOS [facility] - 02/22/2017 10:19 CDT Recreational Drug Use Grid Drug Use : None LEONORA BARRIOS [facility] - 02/22/2017 10:19 CDT Source: [facility] [employer] Document Id: [id number] CDT!58 documented in this encounter Plan of Treatment Not on filedocumented as of this encounter Visit Diagnoses Not on filedocumented in this encounter Additional Health Concerns Assessment Noted Time PHQ-9 Depression Total Score: 11 12/13/2014 9:50 AM CD T documented as of this encounter Care Teams Leave Coordinator Relationship Specialty Start Date End Date Catracho Bundy P.A.-C. PCP - General 02/04/17 04/26/19 documented as of this encounter
--- OUTSIDE RECORDS SUMMARY | 2022-07-17 08:09 | XMS_ITS | Encounter Summary ---
:1985 Author Organization [facility] Address [address] [place] [address] Care Team Providers Name Role Phone Catracho Bundy P.A.-C. Primary Care Provider Encounter Details Date Type Department Care Team Description 05/30/2017 Hospital Encounter HX [facility] Rai Landaverde M.D. [address] [place] [address] (Wo rk) Social History Tobacco [...] How often do you attend christian or orthodox More than 4 time s [...] BERNAL RN - 05/30/2017 16:34 CDT Source: [facility] POWERCHART Document Id: [id number] CDT!19 Shiela Bernal R.N. - 05/30/2017 4:07 PM CDT Hospital Discharge Instructions [address] [id number] Patient Discharge Instructions Name: FORREST PUNEET CHRISTIANO Current Date: 05/30/2017 16:07:19 : 1985 12:00 AM [facility] Number: [id number] Patient Address: [address] [place] [phone] Patient Primary Care Provider: Name: CATRACHO NAZARIO Briana WHITING Discharge Diagnosis: [facility] would like to thank you for allowing [...] Appointments Date Time Location Provider 06/08/2017 09:00 [facility] FRAME PULLEY MORTISING MACHINE OPERATOR Jean Paul MONTEMAYOR, Leonora Bustillos Consider Using [...] if you dont have one. Go to [email or web address] and click on Create Your Account. Then, follow the directions to complete the online form. Youll be asked for your [facility] number which you can find at the [...] will start right away. You may feel Austwell Ling contractions (false labor). These irregular contractions start to soften and thin the cervix. Many women mistake these contractions for true labor. They may be more noticable towards the end of the day. Feeling like the baby has dropped lower. In preparation for , the baby's head has settled deep into your pelvis. ?? [phone] [facility], [address] [place] [address], [place] [address]. All rights reserved. This information is not [...] felt your baby move all day. ?? [phone] [facility], [address] [place] [address], [place] [address]. All rights reserved. This information is not intended as a substitute for professional medical care. Always follow your healthcare professional's instructions. This document has images extracted. Please consider using [employer] for all your patient education needs. Source: [facility] POWERCHART Document Id: [id number] Shiela Bernal R.N. - 05/30/2017 4:07 PM CDT Hospital Discharge Medication List [address] [address] Discharge Medication List Name: PUNEET CLAYTON Current Date: 05/30/2017 16:07:18 : 1985 12:00 AM [facility] Number: [id number] Patient Address: [address] [place] [phone] Patient Primary Care Provider: Name: CATRACHO NAZARIO PA-C Discharge Diagnosis: [facility] would like to thank you for allowing [...] Comment: Electronically Signed By: Signed On: Source: [employer] [facility] [employer] Document Id: [id number] documented in this encounter Medications at Time [...] ASHLEY RN - 05/30/2017 16:28 CDT Source: [facility] [employer] Document Id: [id number] CDT!3 Shiela Bernal R.N. - 05/30/2017 3:45 PM CDT Ongoing Assessment Antepartum Ongoing Assessment Antepartum Entered On: 05/30/2017 16:31 CDT Performed On: 05/30/2017 15:45 CDT by SHIELA BERNAL candy vendor Chief Complaint : decreased movement last few [...] Yes/No : No Nail Bed Color : [place] Capillary Refill : Less than 2 seconds [...] None SHIELA BERNAL RN 05/30/2017 16:29 CDT [place] Coma Eye Opening Response Jenise : Spontaneously Best Verbal Response [place] : Oriented Best Motor Response [place] : Obeys simple commands [place] Coma Score : 15 SHIELA BERNAL RN [...] Integrity : Intact Mucous Membrane Color : [place] Mucous Membrane Description : Moist Skin Color : Normal for ethnicity Skin Description : Normal Skin Temperature : Warm SHIELA BERNAL RN - 05/30/2017 16:29 CDT Kristopher Sensory Perception Kristopher : No impairment Moisture Kristopher : Rarely moist Activity Kristopher : Walks frequently Mobility Kristopher : No limitations Nutrition Krsitopher : Excellent Friction and Shear Kristopher : [...] BERNAL RN - 05/30/2017 16:29 CDT Source: [employer] Document Id: [id number] CDT!107 documented in this encounter Miscellaneous Notes Miscellaneous - Conversion, Historical Provider Ser - 05/30/2017 4:15 PM CDT Coding Summary-Paper Based CODING DATE: 05/31/2017 FINAL [facility] STATUS: * Discharged to Home or [...] ROLDAN Date Saved: 05/31/2017 10:39 am Source: [facility] Document Id: [id number] documented in this encounter Plan of Treatment Not on filedocumented as of this encounter Visit Diagnoses Not on filedocumented in this encounter Additional Health Concerns Assessment Noted Time PHQ-9 Depression Total Score: 7 04/07/2017 9:39 AM CDT documented as of this encounter Care Teams Heater Furnace Relationship Specialty Start Date End Date Catracho Bundy P.A.-C. PCP - General 02/04/17 04/26/19 documented as of this encounter
--- OUTSIDE RECORDS SUMMARY | 2022-07-17 08:09 | XMS_ITS | Encounter Summary ---
:1985 Author Organization [facility] Address [address] [place] [address] Care Team Providers Name Role Phone Blaire uBndy P.A.-C. Primary Care Provider Encounter Details Date Type Department Care Team Description 03/11/2017 Hospital Encounter HX [facility] Leonora Reaves, DISABILITY CASE MANAGER, C.N.P. [address] [place] [address] (Wo rk) Social History Tobacco [...] How often do you attend restorationism or confucianist More than 4 time s [...] Coding Summary-Paper Based CODING DATE: 03/16/[address] [facility] STATUS: * Discharged to Home or [...] ROLDAN Date Saved: 03/16/2017 02:50 pm Source: [facility] POWERCHART Document Id: [id number] documented in this encounter Plan of Treatment Not on filedocumented as of this encounter Visit Diagnoses Not on filedocumented in this encounter Additional Health Concerns Assessment Noted Time PHQ-9 Depression Total Score: 11 12/13/2014 9:50 AM CD T documented as of this encounter Care Teams Whiskey Regauger Relationship Specialty Start Date End Date Blaire Bundy P.A.-C. PCP - General 02/04/17 04/26/19 documented as of this encounter
--- OUTSIDE RECORDS SUMMARY | 2022-07-17 08:09 | XMS_ITS | Encounter Summary ---
:1985 Author Organization [facility] Address [address] [place] [address] Care Team Providers Name Role Phone Blaire Bundy P.A.-C. Primary Care Provider Encounter Details Date Type Department Care Team Description 02/11/2017 Hospital Encounter HX [facility] Marisol Irving APRN, C.N.P. [address] [place] [address] (Wo rk) Social History Tobacco [...] How often do you attend sabianist or latter-day More than 4 time s [...] Coding Summary-Paper Based CODING DATE: 02/16/2017 FINAL [facility] STATUS: [...] ROLDAN Date Saved: 02/16/2017 11:30 am Source: [facility] POWERCHART Document Id: [id number] Miscellaneous - Marisol Irving CBrittaneyN.P., R.N. - 02/11/2017 4:33 PM CDT Addendum by SOCORRO MARK on February 12, 2017 11:37:11 CDT From: SOCORRO MARK ( Obstetrics/Gynecology Varnish Supervisor) To: PUNEET CLAYTON Sent: 02/12/2017 11:37:11 CDT [...] From: MARISOL IRVING CNP, RN To: Obstetrics/Gynecology Varnish Supervisor; PUNEET CLAYTON Sent: 02/11/2017 16:33:06 CDT Puneet, [...] scheduled with your next appointment. Marisol Source: [facility] POWERCHART Document Id: [id number] Electronically signed by Roland, [facility] Product Support Specialist [id number] at 02/24/2017 11:29 AM CDT documented in this encounter Plan of Treatment Not on filedocumented as of this encounter Visit Diagnoses Not on filedocumented in this encounter Additional Health Concerns Assessment Noted Time PHQ-9 Depression Total Score: 11 12/13/2014 9:50 AM CD T documented as of this encounter Care Teams Steward/Stewardess Club Car Relationship Specialty Start Date End Date Blaire Bundy P.A.-C. PCP - General 02/04/17 04/26/19 documented as of this encounter
--- OUTSIDE RECORDS SUMMARY | 2022-07-17 08:09 | XMS_ITS | Encounter Summary ---
:1985 Author Organization [facility] Address [address] [place] [address] Care Team Providers Name Role Phone Blaire Bundy P.A.-C. Primary Care Provider Encounter Details Date Type Department Care Team Description 04/07/2017 Hospital Encounter HX [facility] Leonora Melchor, Maureen TARIQ, C.N.P. [address] [place] [address] (Wo rk) Social History [...] How often do you attend restorationist or scientologist More than 4 time s [...] documented as of this encounter Care Teams Improvement Analyst Relationship Specialty Start Date End Date Blaire Bundy P.A.-C. PCP - General 02/04/17 04/26/19 documented as of this encounter
--- OUTSIDE RECORDS SUMMARY | 2022-07-17 08:09 | XMS_ITS | Encounter Summary ---
:1985 Author Organization [facility] Address [address] [place] [address] Care Team Providers Name Role Phone Blaire Bundy P.A.-C. Primary Care Provider Encounter Details Date Type Department Care Team Description 06/18/2017 Abstract Department of Family Medicine, Provider, Historical [facility], in [place], [place] [address] [place] [address] [facility] [phone] Social History Tobacco Use Types Packs/Day Years [...] How often do you attend sikh or episcopal More than 4 time s [...] documented as of this encounter Care Teams Esthetician/Skin Therapist Relationship Specialty Start Date End Date Blaire Bundy P.A.-C. PCP - General 02/04/17 04/26/19 documented as of this encounter
--- OUTSIDE RECORDS SUMMARY | 2022-07-17 08:09 | XMS_ITS | Encounter Summary ---
:[address] [facility] Address [address] [place] [address] Care Team Providers Name Role Phone Blaire Bundy P.A.-C. Primary Care Provider [phone] Reason for Visit Auth/Cert Specialty Diagnoses / Procedures Referred By Contact Refer red To Contact Diagnoses Appendicitis Acute Appendicitis Acute Procedures LAPAROSCOPIC APPENDECTOMY Referral ID Status Reason Start Date Expiration Date Visits Requ ested Visits Authorized [id number] 1 1 Encounter Details Date Type Department Care Team Description 09/08/2017 Anesthesia Event [facility] MAIN OR Nancy Smith M.D. [address] [facility] [address] [place] [address] [address] [place], [place] [phone] [address] (Wo rk) Anesthesia Record Procedure Summary [...] h andoff to the receiving staff during [facility] ch we 1. Identified the patient [...] D, Time: 161 (created BRENDA RIVERO APRN, SUPERVISOR VENEER via procedure documentation); Mask Ventilation: Easy mask; [...] 8 by Abdomen; and Antionette Barnes, R.N. [facility] dermabond; FACUNDO PROPERTY ECONOMIST d, Karena g WND ADH NEONAT 2X3.75 [...] How often do you attend synagogue or pentecostal More than 4 time s [...] Anesthesia Postprocedure Evaluation - Dimitri Chase, JOSEFA, SUPERVISOR VENEER - 09/08/2017 5:50 PM CST Patient: Carol Cooley Procedure Summary Date: 09/08/17 Room / Location: [address] / [facility] OR Anesthesia Start: 160 Anesthesia Stop: [...] Post Op nausea/vomiting: none Hydration status: euvolemic AND DIE MAKER APPRENTICE Anesthesia Procedure Notes - Dimitri Chase APRN, [...] Procedure outcome: successful Airway event: no complications AND DIE MAKER APPRENTICE Anesthesia Preprocedure Evaluation - Nancy Smith M.D. [...] patient / legal guardian, or through an vessel slag worker; patient evaluated and approved for anesthesia / sedation. The use of blood products not discussed Discussed risk of potential decreased hormonal contraceptive efficacy for up to one week after anesthesia due to medication interactions. AND DIE MAKER APPRENTICE documented in this encounter Plan of Treatment Not on filedocumented as of this encounter Procedures Procedure Name Priority Date/Time Associated Comments Diagnosis LDA ANE ENDOTRACHEAL Routine 09/08/2017 4:27 PM R esults for this AIRWAY TOOL AND DIE MAKER APPRENTICE procedure are i n the results section. documented in this encounter Results LDA ANE ENDOTRACHEAL AIRWAY (09/08/2017 4:27 PM TOOL AND DIE MAKER APPRENTICE) Narrative Dimitri Chase APRN, CRNA - 09/08/19 18 4:27 PM TOOL AND DIE MAKER APPRENTICE Dimitri Chase APRN, CRNA ? 09/08/2017 ??4:31 [...] Airway event: no complications Procedure Note Dimitri Chase, BRENDA RIVERO - 09/08/19 18 4:27 PM CST Airway Date/Time: 09/08/2017 4:15 [...] grade 2A ETT location: oral VL device: [employer]ge StorHunie CMAC blade size: D - adult Adult [...] Site dexamethasone injection Given 09/08/2017 4:07 PM TOOL AND DIE MAKER APPRENTICE 8 mg (for_DECADRON) As needed, Starting on Wed09/08/17 at 1607, Anesthesia Intra-op HYDROmorphone injection (for_DILAUDID) Given 09/08/2017 4:14 PM TOOL AND DIE MAKER APPRENTICE 1 mg As needed, moderate pain or score 4-6 of 10, Starting on Wed09/08/17 at 1614, Anesthesia Intra-op ketamine injection (for_KETALAR) Given 09/08/2017 4:06 PM TOOL AND DIE MAKER APPRENTICE 50 mg As needed, Starting on Wed09/08/17 at 1606, Anesthesia Intra-op ketorolac injection (for_TORADOL) Given 09/08/2017 5:25 PM TOOL AND DIE MAKER APPRENTICE 30 mg As needed, moderate pain or score 4-6 of 10, Starting on Wed09/08/17 at 1725, Anesthesia Intra-op lactated ringers New Bag 09/08/2017 4:36 PM TOOL AND DIE MAKER APPRENTICE intravenous, Continuous Infusion: Per Instructions PRN, Starting on Wed09/08/17 at 1636, Anesthesia Intra-op New Bag 09/08/2017 4:06 PM TOOL AND DIE MAKER APPRENTICE lidocaine (PF) (cardiac) injection Given 09/08/2017 4:11 PM TOOL AND DIE MAKER APPRENTICE 150 mg intravenous, As needed, Starting on Wed09/08/17 at 1611, Anesthesia Intra-op midazolam (PF) injection (for_VERSED) Given 09/08/2017 4:06 PM TOOL AND DIE MAKER APPRENTICE 2 mg intravenous, As needed, Starting on Wed09/08/17 at 1606, Anesthesia Intra-op ondansetron (PF) injection (for_ZOFRAN) Given 09/08/2017 5:11 PM TOOL AND DIE MAKER APPRENTICE 4 mg intravenous, As needed, nausea, vomiting, Starting on Wed09/08/17 at 1711, Anesthesia Intra-op propofol injection (for_DIPRIVAN) Given 09/08/2017 4:11 PM TOOL AND DIE MAKER APPRENTICE 300 mg intravenous, As needed, Starting on Wed09/08/17 at 1611, Anesthesia Intra-op rocuronium injection (for_ZEMURON) Given 09/08/2017 4:07 PM TOOL AND DIE MAKER APPRENTICE 80 mg intravenous, As needed, Starting on Wed09/08/17 at 1607, Anesthesia Intra-op sugammadex injection (for_BRIDION) Given 09/08/2017 5:17 PM TOOL AND DIE MAKER APPRENTICE 290 mg As needed, Starting on Wed09/08/17 at 1717, Anesthesia Intra-op documented in this encounter Additional Health Concerns Assessment Noted Time PHQ-9 Depression Total Score: 7 04/07/2017 9:39 AM CDT documented as of this encounter Care Teams Business Development Agent Relationship Specialty Start Date End Date Blaire Bundy P.A.-C. PCP - General 02/04/17 04/26/19 documented as of this encounter
--- OUTSIDE RECORDS SUMMARY | 2022-07-17 08:09 | XMS_ITS | Encounter Summary ---
:1985 Author Organization [facility] Address [address] [place] [address] Care Team Providers Name Role Phone Blaire Bundy P.A.-C. Primary Care Provider [phone] Encounter Details Date Type Department Care Team Description 09/08/2017 Nurse Triage Department of [facility] Todd nikolas Marcos, RBrittaneyNBrittaney [facility], ([place] [address] [place] [address] Social History Tobacco Use Types [...] How often do you attend alevism or hinduism More than 4 time s [...] documented as of this encounter Care Teams Baker Pastry Relationship Specialty Start Date End Date Blaire Bundy P.A.-C. PCP - General 02/04/17 04/26/19 documented as of this encounter
--- OUTSIDE RECORDS SUMMARY | 2022-07-17 08:09 | XMS_ITS | Encounter Summary ---
:1985 Author Organization [facility] Address [address] [place] [address] Care Team Providers Name Role Phone Blaire [...] Expiration Date Visits Requ ested Visits Authorized [id number] 1 1 Encounter Details Date Type Department Care Team Description 09/08/2017 Surgery [facility] MAIN OR Jaquan Monahan, LAPAROSCOPIC [address] D.OBrittaney APPENDECTOMY NEHEMIAH GRANT [phone] [facility] W [phone] NEHEMIAH Nix [phone] (Wo rk) Social History [...] How often do you attend congregation or restoration More than 4 time s [...] Comments Blood Pressure 143/71 09/08/2017 2:13 PM EXECUTIVE ADMIN Pulse 116 09/08/2017 2:13 PM EXECUTIVE ADMIN Temperature 36.9 ??C (98.4 ??F) 09/08/2017 2:13 PM EXECUTIVE ADMIN Respiratory Rate 16 09/08/2017 2:13 PM EXECUTIVE ADMIN Oxygen Saturation 96% 09/08/2017 2:13 PM EXECUTIVE ADMIN Inhaled Oxygen Concentration - - Weight 145 kg (319 lb 10.7 oz) 09/08/2017 2:13 PM EXECUTIVE ADMIN Height 157.5 cm (5' 2) 09/08/2017 10:09 AM EXECUTIVE ADMIN Body Mass Index 58.47 09/08/2017 10:09 AM EXECUTIVE ADMIN documented in this encounter Discharge Summaries Seng Reyna M.D. - 09/09/2017 9:51 AM CST INPATIENT DISCHARGE SUMMARY BRIEF OVERVIEW Discharge Provider: Taryn Ozuna M.D. Primary Care Providers: Blaire Thornton P.A.-C. (General) [address] [place] [phone] Primary Care Provider Primary Care Provider Other Providers: Admission Date: 09/08/2017 Discharge Date: 09/09/2017 PRINCIPAL DIAGNOSIS Appendicitis Acute SECONDARY DIAGNOSES Principal Problem: Appendicitis Acute Resolved Problems: * No resolved hospital problems. * Operative Procedures: Scheduled (Blank), Completed (Comp) or Canceled (Can) Case IDs Date Procedure Surgeon Location Status [id number] 09/08/17 LAPAROSCOPIC APPENDECTOMY Jaquan Monahan D.O. [facility] OR Comp DISCHARGE DISPOSITION Home or Self Care [1] ACTIVE ISSUES REQUIRING FOLLOW UP Surgical Pathology OUTPATIENT FOLLOW UP No future appointments. TEST RESULTS PENDING AT DISCHARGE Pending Labs Order Current Status Pathology Services Collected (09/08/17 5218) DISCHARGE MEDICATIONS Your medication list START taking [...] Your Medications These medications were sent to [facility] [address] [address] ?? ciprofloxacin 500 mg tablet ?? metroNIDAZOLE [...] ADMISSION ANESTHESIA FOLLOW-UP CONDITION AT DISCHARGE improved UTIVE ADMIN documented in this encounter Discharge Instructions AttachmentsThe following attachments cannot be sent through Care Everywhere.Care Following Your Laparoscopy (American)documented in this encounter Medications at Time of [...] /or at baseline Post Op nausea/vomiting: none UTIVE ADMIN documented in this encounter H&P Notes Jaquan [...] or fallopian tube. She gives informed consent. UTIVE ADMIN documented in this encounter Nursing Notes Kiera [...] mucous membranes remain intact Adequate for Discharge UTIVE ADMIN Suni Peralse R.N. - 09/09/2017 2:12 AM CST DISCHARGE [...] this is a recent diagnosis for her. UTIVE ADMIN Charline Lundberg R.N. - 09/08/2017 9:42 PM [...] o-1 Refuses pain medication at this time UTIVE ADMIN documented in this encounter OR Notes Op Note - Jaquan Monahan D.O. - 09/08/2017 4:35 PM CST FULL OP NOTE Procedure(s): LAPAROSCOPIC APPENDECTOMY Surgeon(s) and Role: * Jaquan Monahan D.O. - Primary Sales Service Representative: Mandi Santoyo L.P.N.; Nichole Allen L.P.N. Anesthesia [...] implants in log * Jaquan Monahan D.O. UTIVE ADMIN Brief Op Note - Jaquan Monahan D.O. - 09/08/2017 4:35 PM CST BRIEF OP NOTE Procedure(s): LAPAROSCOPIC APPENDECTOMY Surgeon(s) and Role: * Jaquan Monaahn D.O. - Primary Anesthesia Type: General Pre-Operative [...] implants in log * Jaquan Monahan D.O. UTIVE ADMIN documented in this encounter ED Notes Dimitri [...] for admission. He will contact the nursing quarry supervisor open pit to determine a plan of when surgery [...] was going to talk with the nursing quarry supervisor open pit and the operating room about the plan [...] accurate and complete. Dimitri Car M.D. 09/08/172138 UTIVE ADMIN documented in this encounter Plan of Treatment Scheduled Referrals Name Type Priority Associated Diagnoses Order [facility] General Surgery Outpatient Referral Routine Appendicitis Acute Expected: Post Op (clinic) 09/15/2017 (Approximate), Expires: 09/09/2020 documented as of this encounter Procedures Procedure Name Priority Date/Time Associated Comments Diagnosis CBC WITH Routine 09/09/2017 7:05 Results for DIFFERENTIAL, B AM EXECUTIVE ADMIN this procedu re are in the results section. INCENTIVE Routine 09/08/2017 6:39 SPIROMETRY - RT/RN PM EXECUTIVE ADMIN INCENTIVE Routine 09/08/2017 6:39 SPIROMETRY - RT/RN PM EXECUTIVE ADMIN INCENTIVE Routine 09/08/2017 6:39 SPIROMETRY - RT/RN PM EXECUTIVE ADMIN INCENTIVE Routine 09/08/2017 6:39 SPIROMETRY - RT/RN PM EXECUTIVE ADMIN INCENTIVE Routine 09/08/2017 6:39 SPIROMETRY - RT/RN PM EXECUTIVE ADMIN INCENTIVE Routine 09/08/2017 6:39 SPIROMETRY - RT/RN PM EXECUTIVE ADMIN INCENTIVE Routine 09/08/2017 6:39 SPIROMETRY - RT/RN PM EXECUTIVE ADMIN INCENTIVE Routine 09/08/2017 6:39 SPIROMETRY - RT/RN PM EXECUTIVE ADMIN INCENTIVE Routine 09/08/2017 6:39 SPIROMETRY - RT/RN PM EXECUTIVE ADMIN INCENTIVE Routine 09/08/2017 6:39 SPIROMETRY - RT/RN PM EXECUTIVE ADMIN INCENTIVE Routine 09/08/2017 6:39 SPIROMETRY - RT/RN PM EXECUTIVE ADMIN ADULT OXYGEN Routine 09/08/2017 5:43 THERAPY PM EXECUTIVE ADMIN PATHOLOGY SERVICES Routine 09/08/2017 5:08 Appendicitis Acute Results for PM EXECUTIVE ADMIN this procedure are in the results section. LAPAROSCOPIC 09/08/2017 4:06 Appendicitis Acute APPENDECTOMY PM EXECUTIVE ADMIN CT ABDOMEN PELVIS RAD - Semiurgent 09/08/2017 11:53 Re sults for WITH IV CONTRAST (Fast; most ED AM EXECUTIVE ADMIN this proc edure patients; some are in the inpatients) results section. IRIS MICROSCOPIC, U STAT 09/08/2017 11:03 Resu lts for AM EXECUTIVE ADMIN this procedure are in the results section. URINALYSIS WITH STAT 09/08/2017 11:03 Results for MICROSCOPIC IF AM EXECUTIVE ADMIN this procedur e INDICATED, U are in the results section. HEPATIC FUNCTION STAT 09/08/2017 10:50 Results for PANEL, S AM EXECUTIVE ADMIN this procedure are in the results section. CBC WITH STAT 09/08/2017 10:50 Results for DIFFERENTIAL, B AM EXECUTIVE ADMIN this procedu re are in the results section. C-REACTIVE PROTEIN STAT 09/08/2017 10:50 Resul ts for (CRP), S/P AM EXECUTIVE ADMIN this procedure are in the results section. HUMAN CHORIONIC STAT 09/08/2017 10:50 Results for GONADOTROPIN (HCG), AM EXECUTIVE ADMIN this pro cedure MARCI, are in the results section. LIPASE, S/P STAT 09/08/2017 10:50 Results for AM EXECUTIVE ADMIN this procedure are in the results section. LACTATE, B/P STAT 09/08/2017 10:50 Results for AM EXECUTIVE ADMIN this procedure are in the results section. BASIC METABOLIC STAT 09/08/2017 10:50 Results for PANEL, S/P AM EXECUTIVE ADMIN this procedure are in the results section. documented in this encounter Results (ABNORMAL) CBC with Differential (09/09/2017 7:05 AM EXECUTIVE ADMIN) [facility] Method Time Signature Hemoglobin 11.1 (L) 11.6 - 09/09/2017 [facility] 15.0 g/dL 7:11 AM [facility] Hematocrit 34.8 (L) 35.5 - 09/09/2017 [facility] 44.9 % 7:11 AM [facility] Erythrocytes 4.18 3.92 - 09/09/2017 [facility] 5.13 7:11 AM EXECUTIVE ADMIN HEALTH x10(12)/L [facility] MCV 83.3 78.2 - 09/09/2017 [facility] 97.9 fL 7:11 AM [email or web address] RBC Distrib Width 13.6 12.2 - 09/09/2017 [facility] 16.1 % 7:11 AM [facility] [facility] Platelet Count 263 157 - 371 09/09/2017 [facility] x10(9)/L 7:11 AM [facility] [facility] Leukocytes 11.8 (H) 3.4 - 9.6 09/09/2017 [facility] x10(9)/L 7:11 AM [facility] Neutrophils 10.54 (H) 1.56 - 09/09/2017 [facility] 6.45 7:11 AM EXECUTIVE ADMIN HEALTH x10(9)/L [facility] Lymphocytes 0.65 (L) 0.95 - 09/09/2017 [facility] 3.07 7:11 AM EXECUTIVE ADMIN HEALTH x10(9)/L [facility] Monocytes 0.57 0.26 - 09/09/2017 [facility] 0.81 7:11 AM EXECUTIVE ADMIN HEALTH x10(9)/L [facility] Eosinophils 0.01 (L) 0.03 - 09/09/2017 [facility] 0.48 7:11 AM EXECUTIVE ADMIN HEALTH x10(9)/L [facility] Basophils 0.01 0.01 - 09/09/2017 [facility] 0.08 7:11 AM EXECUTIVE ADMIN HEALTH x10(9)/L [facility] Specimen Anatomical Collection Method Collection Time Receive d Time (Source) Location / / Volume Laterality Blood (Blood, 09/09/2017 7:05 AM 09/09/19 7:08 Venous) EXECUTIVE ADMIN AM EXECUTIVE ADMIN Jaquan Monahan D.O. LAB BLOOD ADD-ON Performing Organization Address City/[facility] Phon e Number [facility] [address] [place] [address] [facility] Pathology Services (09/08/2017 5:08 PM EXECUTIVE ADMIN) Component Value Ref Test Analysis Performed At [facility] Range Method Time Signature PATHOLOGY Patient Name: [facility] MR#: [id number] [facility] Submitting Physician: JAQUAN MONAHAN DO [id number] Specimen #[id number] Performing Lab: ??[facility] ? [address] [place] [id number] Source: Appendix Clinical History/Pre-Op Appendicitis acute [K35.80] Gross Description Labeled appendix consists of a 6.1 cm in length x 1.2 cm in diameter appendix, with attached mesoappendix ( 2.4 cm). ??The serosa is gatica-brown with focal areas of white exudate. ??The muco sa is red-brown hemorrhagic to necrotic. ??An area of disruption is not grossly id entified. ??[employer] Technician sections are submitted in cassette A1. KG/ed ?? Diagnosis Appendix, appendectomy: ACUTE APPENDICITIS WITH PERIAPPENDICITIS. Electronically Signed By JANNET HERNÁNDEZ MD - 09/10/2017 ed/09/10/2017 Specimen (Source) Anatomical Collection Method Collection Time Re ceived Time Location / / Volume Laterality Tissue (Appendix) 09/08/2017 5:08 PM EXECUTIVE ADMIN Comment: Acute appendicitis Jaquan Monahan D.O. LAB SURG PATH ORDERABLES Performing Organization Address City/[facility]/ZIP Code Phon e Number [address] [address] [place] Abdomen Pelvis with IV Contrast (09/08/2017 11:53 AM EXECUTIVE ADMIN) Anatomical Region Laterality Modality Abdomen, Pelvis N/A Computed Tomography Specimen (Source) Anatomical Collection Method Collection Time Re ceived Time Location / / Volume Laterality 09/08/2017 12:00 PM EXECUTIVE ADMIN Impressions 09/08/2017 12:07 PM EXECUTIVE ADMIN IMPRESSION: 1. ??Acute uncomplicated appendicitis. 2. ??Hepatic steatosis. 3. ??Prominent follicle right ovary. Narrative 09/08/2017 12:07 PM EXECUTIVE ADMIN EXAM: CT ABDOMEN PELVIS WITH IV CONTRAST [...] (ABNORMAL) Iris Microscopic, U (09/08/2017 11:03 AM EXECUTIVE ADMIN) Analysis Performed At Patho logist Time Signature White Blood 11-20 (A) /hpf 09/08/2017 [facility] Cells 11:13 AM [facility] Comment: ----REFERENCE VALUE---- Males: 0-3 Females: 0-10 Unknown: 0-10 Red Blood Cells Occ-2 0 - 2 /hpf 09/08/2017 11:13 AM [facility] [place] 2[facility] LAB Mucus Present /hpf 09/08/2017 11:13 AM [facility] Squamous Epithelial Occ-3 /hpf 09/08/2017 11:13 AM [facility] Bacteria Present (A) None Seen 09/08/2017 11:13 AM [facility] Specimen Anatomical Collection Method Collection Time Receive d Time (Source) Location / / Volume Laterality Urine 09/08/2017 11:03 09/08/2017 AM EXECUTIVE ADMIN 11:05 AM EXECUTIVE ADMIN Dimitri Car M.D. LAB URINE ORDERABLES Performing Organization Address City/State/ZIP Code Phon e Number [facility] [address] [place] [address] [facility] (ABNORMAL) Urinalysis with Microscopic if Indicated (09/08/2017 11:03 AM EXECUTIVE ADMIN) Analysis Performed At Patho logist Time Signature Source Midstream 09/08/2017 [facility] 11:13 AM [facility] Clarity Slightly Clear 09/08/2017 [facility] Cloudy (A) 11:13 AM [facility] Color Yellow 09/08/2017 [facility] 11:13 AM [facility] Comment: ----REFERENCE VALUE---- Colorless Yellow Philomena Blood Negative Negative 09/08/2017 11:13 AM [facility] Nitrite Positive (A) Negative 09/08/2017 11:13 AM [facility] Leukocyte Esterase Moderate (A) Negative 09/08/2017 11:1 3 AM [facility] Protein, U Trace mg/dL 09/08/2017 11:13 AM [facility] Comment: ----REFERENCE VALUE---- Negative Trace Glucose Negative Negative mg/dL 09/08/2017 11:13 AM [facility] Ketone Negative Negative mg/dL 09/08/2017 11:13 AM [facility] Bilirubin Negative Negative 09/08/2017 11:13 AM [facility] pH 6.0 5.0 - 8.0 09/08/2017 11:13 AM [facility] Specific [place] 1.015 1.001 - 1.035 09/08/2017 11:13 AM [facility] Urobilinogen 0.2 0.2 - 1.0 09/08/2017 11:13 AM [facility] Specimen Anatomical Collection Method Collection Time Receive d Time (Source) Location / / Volume Laterality Urine (Urine, 09/08/2017 11:03 09/08/2017 Clean Catch) AM EXECUTIVE ADMIN 11:05 AM EXECUTIVE ADMIN Dimitri Car M.D. LAB URINE ORDERABLES Performing Organization Address City/State/ZIP Code Phon e Number [facility] [address] [facility] [place] [address] [facility] (ABNORMAL) CRP (C-Reactive Protein) (09/08/2017 10:50 AM EXECUTIVE ADMIN) Analysis Performed At Patho logist Time Signature C-Reactive 115.8 (H) <=8.0 mg/L 09/08/2017 [facility] Protein (CRP), 11:12 AM [facility] Specimen Anatomical Collection Method Collection Time Receive d Time (Source) Location / / Volume Laterality Blood (Blood, 09/08/2017 10:50 09/08/2017 Venous) AM EXECUTIVE ADMIN 10:52 AM EXECUTIVE ADMIN Dimitri Car M.D. LAB BLOOD ADD-ON Performing Organization Address City/State/ZIP Code Phon e Number [facility] [address] [place] [address] [place] [address] [facility] hCG (Human Chorionic Gonadotropin), Quantitative, (09/08/2017 10:50 AM EXECUTIVE ADMIN) athologist Signature HCG, <0.5 IU/L 09/08/2017 [facility] Quantitative, 11:36 AM [facility] Comment: Biotin has been identified by [...] Blood (Blood, 09/08/2017 10:50 09/08/2017 Venous) AM EXECUTIVE ADMIN 10:52 AM EXECUTIVE ADMIN Dimitri Car M.D. LAB BLOOD ADD-ON Performing Organization Address City/State/ZIP Code Phon e Number [facility] [place] [address] [facility] Lipase (09/08/2017 10:50 AM EXECUTIVE ADMIN) athologist Signature Lipase, P 22 13 - 60 U/L 09/08/2017 [facility] 11:13 AM [facility] Specimen Anatomical Collection Method Collection Time Receive d Time (Source) Location / / Volume Laterality Blood (Blood, 09/08/2017 10:50 09/08/2017 Venous) AM EXECUTIVE ADMIN 10:52 AM EXECUTIVE ADMIN Dimitri Car M.D. LAB BLOOD ADD-ON Performing Organization Address City/State/ZIP Code Phon e Number [facility] [address] [facility] [place] [address] [facility] Lactate (09/08/2017 10:50 AM EXECUTIVE ADMIN) P athologist Signature Lactate, P 0.7 0.6 - 2.3 09/08/2017 [facility] mmol/L 11:11 AM [facility] Specimen Anatomical Collection Method Collection Time Receive d Time (Source) Location / / Volume Laterality Blood (Blood, 09/08/2017 10:50 09/08/2017 Venous) AM EXECUTIVE ADMIN 10:52 AM EXECUTIVE ADMIN Dimitri Car M.D. LAB BLOOD NON ADD-ON Performing Organization Address City/State/ZIP Code Phon e Number [facility] [place] [address] [facility] (ABNORMAL) Hepatic Function Panel (09/08/2017 10:50 AM EXECUTIVE ADMIN) Patholo gist Method Time Signature Bilirubin, Total, S 1.1 <=1.2 09/08/2017 [facility] mg/dL 11:12 AM [facility] [facility] Bilirubin, Direct, S 0.2 0.0 - 0.3 09/08/2017 [facility] mg/dL 11:12 AM [facility] [facility] Aspartate 32 8 - 43 09/08/2017 [facility] Aminotransferase U/L 11:12 AM [facility] [facility] Alanine 83 (H) 7 - 45 09/08/2017 [facility] Aminotransferase U/L 11:12 AM [facility] (ALT), S [facility] [employer] [facility] Alkaline 101 (H) 37 - 98 09/08/2017 [facility] Phosphatase, S U/L 11:12 AM [facility] Albumin, S 3.9 3.5 - 5.0 09/08/2017 [facility] g/dL 11:12 AM [employer] [facility] Protein, Total, S 6.9 6.3 - 7.9 09/08/2017 [facility] g/dL 11:12 AM [employer] [facility] Specimen Anatomical Collection Method Collection Time Receive d Time (Source) Location / / Volume Laterality Blood (Blood, 09/08/2017 10:50 09/08/2017 Venous) AM EXECUTIVE ADMIN 10:52 AM [facility] Dimitri Car M.D. LAB BLOOD ADD-ON Performing Organization Address City/State/ZIP Code Phon e Number [facility] [address] [place] [address] [facility] BMP (Basic Metabolic Panel) (09/08/2017 10:50 AM EXECUTIVE ADMIN) P athologist Signature Potassium, P 4.2 3.6 - 5.2 09/08/2017 [facility] mmol/L 11:13 AM [facility] Sodium, P 135 135 - 145 09/08/2017 [facility] mmol/L 11:13 AM [facility] Chloride, P 99 98 - 107 09/08/2017 [facility] mmol/L 11:13 AM [facility] Bicarbonate, P 22 22 - 29 09/08/2017 [facility] mmol/L 11:13 AM [facility] Anion Gap, P 14 7 - 15 09/08/2017 [facility] 11:13 AM [facility] BUN (Blood Urea 7 6 - 21 09/08/2017 [facility] Nitrogen), P mg/dL 11:13 AM [facility] Creatinine 0.62 0.59 - 09/08/2017 [facility] 1.04 mg/dL 11:13 AM [facility] eGFR-Black/Afri >90 >=60 09/08/2017 [facility] can [place] mL/min/BSA 11:13 AM [facility] Comment: ----ADDITIONAL INFORMATION---- Estimated GFR calculated using the 2009 CKD_EPI creatinine equation. eGFR Non-Black/ >90 >=60 mL/min/BSA 09/08/2017 11:13 AM [facility] [place] [facility] Comment: ----ADDITIONAL INFORMATION---- Estimated GFR calculated using the 2009 CKD_EPI creatinine equation. Calcium, Total, P 9.1 8.9 - 10.1 mg/dL 09/08/2017 1 1:13 AM [facility] Glucose, P 104 70 - 140 mg/dL 09/08/2017 11:13 AM [facility] Specimen Anatomical Collection Method Collection Time Receive d Time (Source) Location / / Volume Laterality Blood (Blood, 09/08/2017 10:50 09/08/2017 Venous) AM EXECUTIVE ADMIN 10:52 AM EXECUTIVE ADMIN Dimitri Car M.D. LAB BLOOD ADD-ON Performing Organization Address City/State/ZIP Code Phon e Number [facility] [address] [place] [address] [facility] (ABNORMAL) CBC with Differential (09/08/2017 10:50 AM EXECUTIVE ADMIN) [facility] Method Time Signature Hemoglobin 12.3 11.6 - 09/08/2017 [facility] 15.0 g/dL 10:56 AM [facility] Hematocrit 37.8 35.5 - 09/08/2017 [facility] 44.9 % 10:56 AM [facility] Erythrocytes 4.60 3.92 - 09/08/2017 [facility] 5.13 10:56 AM [facility] HEALTH x10(12)/L [facility] MCV 82.2 78.2 - 09/08/2017 [facility] 97.9 fL 10:56 AM [facility] RBC Distrib Width 13.9 12.2 - 09/08/2017 [facility] 16.1 % 10:56 AM [facility] Platelet Count 293 157 - 371 09/08/2017 [facility] x10(9)/L 10:56 AM [facility] Leukocytes 15.8 (H) 3.4 - 9.6 09/08/2017 [facility] x10(9)/L 10:56 AM [facility] Neutrophils 13.48 (H) 1.56 - 09/08/2017 [facility] 6.45 10:56 AM [facility] x10(9)/L [facility] [place] [facility] Lymphocytes 1.35 0.95 - 09/08/2017 [facility] 3.07 10:56 AM [facility] x10(9)/L [facility] [place] [facility] Monocytes 0.87 (H) 0.26 - 09/08/2017 [facility] 0.81 10:56 AM [facility] x10(9)/L SYSTEM [facility] [employer] Eosinophils 0.04 0.03 - 09/08/2017 [facility] 0.48 10:56 AM EXECUTIVE ADMIN HEALTH x10(9)/L [facility] Basophils 0.03 0.01 - 09/08/2017 [facility] 0.08 10:56 AM EXECUTIVE ADMIN HEALTH x10(9)/L [facility] Specimen Anatomical Collection Method Collection Time Receive d Time (Source) Location / / Volume Laterality Blood (Blood, 09/08/2017 10:50 09/08/2017 Venous) AM EXECUTIVE ADMIN 10:52 AM EXECUTIVE ADMIN Dimitri Car M.D. LAB BLOOD ADD-ON Performing Organization Address City/State/ZIP Code Phon e Number [facility] [address] [place] [address] [facility] documented in this encounter Visit Diagnoses Diagnosis Appendicitis Acute - Primary Appendicitis Acute Appendicitis Acute documented in this encounter Administered Medications Inactive Administered Medications - up to 3 most recent administrations Medication Order MAR Action Action Date Dose Rate Site ciprofloxacin in D5W IVPB New Bag 09/08/2017 12:29 PM 400 mg 2 00 mL/hr Right Hand 400 mg (for_CIPRO) EXECUTIVE ADMIN 400 mg, intravenous, at 200 mL/hr, Administer over 60 Minutes, Once, On Wed09/08/17 at 1216, For 1 dose, premix bag, Drug Monitoring Program: Pharmacist to adjust medication order based on comorbities and indication., Indications: Appendicitis ciprofloxacin in D5W IVPB New Bag 09/09/2017 12:23 AM 400 mg 2 00 mL/hr Right Hand 400 mg (for_CIPRO) EXECUTIVE ADMIN 400 mg, intravenous, at 200 mL/hr, Administer over 60 Minutes, Once, On Wed09/09/17 at 0030, For 1 dose, Start within 12 hours of last dose. premix bag, Drug Monitoring Program: Pharmacist to adjust medication order based on comorbities and indication., Indications: Prophylaxis, surgical heparin (porcine) 5,000 Given 09/08/2017 2:43 PM EXECUTIVE ADMIN 5,000 Units Abdominal Tissue unit/0.5 mL injection - ADS Override Pull Starting on Wed09/08/17 at 1426, For 1 dose, Created by cabinet override heparin (porcine) Given 09/09/2017 9:14 AM EXECUTIVE ADMIN 7,500 Units Left Lower Abdomen injection 7,500 Units 7,500 Units, subcutaneous, 3 times daily, First dose on Wed09/09/17 at 0145 Given 09/09/2017 1:48 AM EXECUTIVE ADMIN 7,500 Units Right Lower Abdomen HYDROmorphone injection 0.5 mg (for_DILA UDID) Given 09/08/2017 2:40 PM EXECUTIVE ADMIN 0.5 mg 0.5 mg, intravenous, Every 1 hour PRN, moderate pain or score 4-6 of 10, Starting on Wed09/08/17 at 1253 iohexol 350 mg iodine/mL solution Given 09/08/2017 11:54 AM EXECUTIVE ADMIN 171 mL Right Hand 171 mL (for_OMNIPAQUE) 171 mL, intravenous, Once in imaging, contrast, Starting on Wed09/08/17 at 1059, For 1 dose ketorolac injection 30 mg Given 09/08/2017 10:57 AM EXECUTIVE ADMIN 30 mg Right Hand (for_TORADOL) 30 mg, intravenous, Once, On Wed09/08/17 at 1040, For 1 dose, Adult IV push rate: Over 15 seconds. Peds IV push rate: Over 1 minute. 60 mg dose only for IM, not recommended for IV., Drug Monitoring Program: Pharmacist to adjust medication order based on comorbities and indication. lactated ringers New Bag 09/08/2017 2:50 PM EXECUTIVE ADMIN 20 mL/hr 20 mL/hr 20 mL/hr, intravenous, Continuous, Starting on Wed09/08/17 at 1430, Pre-Op lactated ringers Rate/Dose Verify 09/08/2017 10:00 PM EXECUTIVE ADMIN 75 mL/hr 75 mL/hr 75 mL/hr, intravenous, Continuous, Starting on Wed09/08/17 at 2000 New Bag 09/08/2017 7:55 PM EXECUTIVE ADMIN 75 mL/hr 75 mL/hr lidocaine 50 mL, bupivacaine PF Given 09/08/2017 5:17 PM EXECUTIVE ADMIN 9 m L Abdominal Tissue 50 mL 100 mL injection As needed, Starting on Wed09/08/17 at 1717, Intra-Op metroNIDAZOLE in NaCl (iso-osm) New Bag 09/08/2017 1:39 PM EXECUTIVE ADMIN 500 mg 200 mL/hr IVPB 500 mg (for_FLAGYL) 500 mg, intravenous, at 200 mL/hr, Administer over 30 Minutes, Once, On Wed09/08/17 at 1210, For 1 dose, Indications: Appendicitis metroNIDAZOLE in NaCl (iso-osm) New Bag 09/09/2017 5:36 AM EXECUTIVE ADMIN 500 mg 200 mL/hr IVPB 500 mg (for_FLAGYL) 500 mg, intravenous, at 200 mL/hr, Administer over 30 Minutes, Every 8 hours, First dose on Wed09/08/17 at 2145, For 2 doses, Start within 8 hours of last dose., Indications: Prophylaxis, surgical New Bag 09/08/2017 9:25 PM EXECUTIVE ADMIN 500 mg 200 mL/hr morphine injection 4 mg Given 09/08/2017 10:57 AM EXECUTIVE ADMIN 4 mg 4 mg, intravenous, Every 20 min PRN, moderate pain or score 4-6 of 10, severe pain or score 7-10 of 10, Starting on Wed09/08/17 at 1038, For 3 doses NaCl 0.9 % bolus 1,000 New Bag 09/08/2017 10:58 AM 1,000 mL 2000 mL/hr Right Hand mL EXECUTIVE ADMIN 1,000 mL, intravenous, at 2,000 mL/hr, Administer over 0.5 Hours, Once, On Wed09/08/17 at 1040, For 1 dose NaCl 0.9% infusion New Bag 09/08/2017 11:27 AM 1,000 mL/hr 1000 mL/hr Right Aiken nd 1,000 mL/hr, EXECUTIVE ADMIN intravenous, Continuous, Starting on Wed09/08/17 at 1040, For Hydration ondansetron (PF) injection 4 mg (for_ZOF RAN) Given 09/08/2017 2:51 PM EXECUTIVE ADMIN 4 mg 4 mg, intravenous, Every 20 min PRN, nausea, vomiting, Starting on Wed09/08/17 at 1038, For 2 doses Given 09/08/2017 10:57 AM EXECUTIVE ADMIN 4 mg ondansetron (PF) injection 4 mg (for_ZOF RAN) 4 mg, intravenous, Every 6 hours PRN, na usea, vomiting, Starting on Wed09/08/17 at 1254 oxyCODONE IR tablet 5 mg (for_ROXICODONE ) Given 09/09/2017 5:45 AM EXECUTIVE ADMIN 5 mg 5 mg, oral, Every 4 hours PRN, mild pain or score 1-3 of 10, Starting on Wed09/08/17 at 1839 Given 09/09/2017 12:40 AM EXECUTIVE ADMIN 5 mg sodium chloride 0.9 % injection 10 mL 10 mL, intravenous, As needed, line care, Starting on Wed09/08/17 at 1037, Peripheral Intravenous Catheter and Rapid Infusion Cat heter, prior to blood sampling, post blood transfusion or post blood samplin g sodium chloride 0.9 % injection 10 Given 09/08/2017 11:55 AM EXECUTIVE ADMIN 10 mL Right Hand mL 10 mL, [...] % injection 80 Given 09/08/2017 11:09 AM EXECUTIVE ADMIN 80 mL Right Hand mL 80 mL, intravenous, Once, On Wed09/08/17 at 1109, For 1 dose documented in this encounter Active and Recently Administered Medications Times are shown in EXECUTIVE ADMIN. Scheduled Medication Order 09/07/2017 09/08/2017 09/09/2017 ciprofloxacin [...] Lundberg R.N. - Comment: incorrect order by [facility] T.O. not to give had difficulity [...] 0536 (New Bag - Provider: Suni madrid RBrittaneyNBrittaney) 500 mg, intravenous, at 200 mL/hr, Admin [...] available)1440 (Given - Provider: Zelda Vilchis RBrittaneyNBrittaney)181 ([facility] Unhold - Provider: Transfer Provider, [...] - Pr ovider: Keiry Perales R.N.)1408 ([facility] Hold - Provider: Transfer Provider, Automatic - Reason: Patient not available)181 ([facility] Unhold - Provider: Transfer Provider, [...] available)1451 (Given - Provider: Zelda Vilchis R.N.)1811 ([facility] Unhold - Provider: Transfer Provider, Automatic) 4 mg, intravenous, Every 20 min PRN, [place], vomiting, Starting on Wed09/08/17 at 1038, For 2 doses ondansetron (PF) injection 4 mg (for_ZOFRAN) 1408 ([facility] Hold - Provider: Transfer Provider, Automatic - Reason: Patient not available)1448 (Dose Auto Held)181 ([facility] Unhold - Provider: Transfer Provider, [...] R.TBrittaney(R)) 10 mL, intravenous, Once in imaging, koyd e care, Starting on Wed09/08/17 at 1107, [...] (COMPLETED) 1443 (Given - Provider: Zelda Vilchis, R.NBrittaney) Starting on Wed09/08/17 at 1426, For 1 dose, Created by cabinet override documented in this encounter Additional Health Concerns Assessment Noted Time PHQ-9 Depression Total Score: 7 04/07/2017 9:39 AM CDT documented as of this encounter Care Teams Edge Grinder Relationship Specialty Start Date End Date Blaire Bundy P.A.-C. PCP - General 02/04/17 04/26/19 documented as of this encounter
--- OUTSIDE RECORDS SUMMARY | 2022-07-17 08:09 | XMS_ITS | Encounter Summary ---
:1985 Author Organization [facility] Address [address] [place] [address] Care Team Providers Name Role Phone Blaire Bundy P.A.-C. Primary Care Provider [phone] Reason for Visit Reason Comments Care Encounter Details Date Type Department Care Team Description 07/29/2017 Office Visit Department of Leonora Reaves, Management C ontraception By Injection (Primary Dx); Obstetrics and CORNER TRIMMER OPERATOR, C.N.P. Exam (HCC) Gynecology in [address] [address] [place], [place] [phone] (Work) [phone] Social History Tobacco Use Types Packs/Day Years [...] How often do you attend nondenominational or christian More than 4 time s [...] Comments Blood Pressure 132/82 07/29/2017 10:53 AM COLD TYPE ARTIST Pulse - - Temperature - - Respiratory Rate - - Oxygen Saturation - - Inhaled Oxygen Concentration - - Weight 145 kg (319 lb 10.7 oz) 07/29/2017 10:53 AM COLD TYPE ARTIST Height - - Body Mass Index 58.3 06/23/2017 4:33 PM CDT documented in this encounter Progress Notes Leonora Reaves R.N., WHNP-BC - 07/29/2017 11:00 AM CST SUBJECTIVE CHIEF COMPLAINT / REASON FOR VISIT Carol Cooley, , is status post vaginal at [facility] in [place]. Antepartum course was complicated by: Obesity. course [...] or hernia Genitalia: external vulva, Bartholin's, urethra, [place]'s glands and fourchette negative Perineum: intact; well healed Vagina: normal Cervix: normal Bimanual: exam revealed normal mobile uterus, negative adnexa Rectovaginal exam: confirms good sphincter tone Dry Box Tender for pelvic exam or qualifying procedure: Lory [...] of the content. Leonora Reaves R.N., SIM- TYPE ARTIST documented in this encounter Plan of Treatment Not on filedocumented as of this encounter Visit Diagnoses Diagnosis Management Contraception By Injection - Primary Exam (HCC) documented in this encounter Administered Medications Inactive Administered Medications - up to 3 most recent administrations Medication Order MAR Action Action Date Dose Rate Site medroxyPROGESTERone injection Given 07/29/2017 150 mg Right Vastus 150 mg 11:37 AM COLD TYPE ARTIST Lateralis 150 mg, intramuscular, Every 12 weeks, First dose on Bryanna 07/29/17 at 1145, For 4 doses documented in this encounter Additional Health Concerns Assessment Noted Time PHQ-9 Depression Total Score: 7 04/07/2017 9:39 AM CDT documented as of this encounter Care Teams Pocket Secretary Assembler Relationship Specialty Start Date End Date Blaire Bundy P.A.-C. PCP - General 02/04/17 04/26/19 documented as of this encounter
--- OUTSIDE RECORDS SUMMARY | 2022-07-17 08:09 | XMS_ITS | Encounter Summary ---
:1985 Author Organization [facility] Address [address] [place] [address] Care Team Providers Name Role Phone Catracho Bundy P.A.-C. Primary Care Provider Encounter Details Date Type Department Care Team Description 02/11/2017 Hospital Encounter HX [facility] Marisol Galaviz, SUZI N, C.N.P. [address] [place], [place] [phone] [...] How often do you attend mosque or methodist More than 4 time s [...] given to the patient: Patient Education Materials: Stations Superintendent Healthy Eating Habits During Stations Superintendent Healthy Eating Habits During Its important to [...] water with a slice of lemon or iroquois (these can also help ease an upset [...] light tuna, salmon, pollock, and catfish ?? [phone] [place] [address]. All rights reserved. This information is not intended as a substitute for professional medical care. Always follow your healthcare professional's instructions. This document has images extracted. Please consider using [employer] for all your patient education needs. Source: [facility] POWERCHART Document Id: [id number] documented in this encounter Miscellaneous Notes Miscellaneous - Marisol Marqeus, C.N.P., R.N. - 02/11/2017 10:38 AM CDT Ambulatory Discharge Medication List [facility] [address] [place], [place] [phone] Visit Information Name: PUNEET CLAYTON [facility] Number: [id number] Current Date: 02/11/2017 10:38:54 Attending Provider: MARISOL MARQUES CNP, security compliance specialist Provider: CATRACHO NAZARIO PA-C PUNEET CLAYTON has [...] RN Signed On:11-FEB-2017 10:38:51 Additional Information: Source: [facility] POWERCHART Document Id: [id number] Miscellaneous - Marisol Marques C.N.P., R.N. - 02/11/2017 10:38 AM CDT Ambulatory Patient Summary [facility] [address] [facility], [address] [place], [place] [phone] Visit Information Name: PUNEET CLAYTON [facility] Number: [id number] Current Date: 02/11/2017 10:38:55 Physicians Attending Provider: MARISOL MARQUES CNP, security compliance specialist Provider: CATRACHO NAZARIO PA-C PUNEET CLAYTON has [...] water with a slice of lemon or iroquois (these can also help ease an upset [...] light tuna, salmon, pollock, and catfish ?? [phone] [facility], [address] [place] [address], [place] [address]. All rights reserved. This information is not [...] if you dont have one. Go to [email or web address] and click on Create Your Account. Then, follow the directions to complete the online form. Youll be asked for your [facility] number which you can find at the top of this document. Your Goals/Additional instructions: This document has images extracted. Please consider using [employer] for all your patient education needs. Source: [facility] POWERCHART Document Id: [id number] Miscellaneous - Cleopatra Laguerre L.P.N. - 02/11/2017 10:[address] AM CDT [address] Police Officer Intake/History Adult State Highway Police Officer Intake/History Entered On: 02/11/2017 10:26 CDT Performed [...] Information Given By : Patient Languages : Citizen Of [place] Is Patient Female and 13-50 no hysterectomy [...] LAGUERRE LPN - 02/11/2017 10:23 CDT Source: [facility] POWERCHART Document Id: [id number] CDT!41 documented in this encounter Plan of Treatment Not on filedocumented as of this encounter Visit Diagnoses Not on filedocumented in this encounter Additional Health Concerns Assessment Noted Time PHQ-9 Depression Total Score: 11 12/13/2014 9:50 AM CD T documented as of this encounter Care Teams Group Work Program Director Relationship Specialty Start Date End Date Catracho Bundy P.A.-C. PCP - General 02/04/17 04/26/19 documented as of this encounter
--- OUTSIDE RECORDS SUMMARY | 2022-07-17 08:09 | XMS_ITS | Encounter Summary ---
:1985 Author Organization [facility] Address [address] [place] [address] Care Team Providers Name Role Phone Blaire Bundy P.A.-C. Primary Care Provider Reason for Visit Reason Comments Sore Throat sore throat since Wednesday, no fever, no bodyaches, headaches, dry cough Appointment Request (Routine) - Incomplete Specialty Diagnoses / Procedures Referred By Contact Refer red To Contact Referral ID Status Reason Start Date Expiration Date Visits V isits Requested Authorized [id number] Incomplete 08/02/2017 01/29/2018 1 1 Encounter Details Date Type Department Care Team Description 08/03/2017 Office Visit Department of [facility] Erin Bundy P.A.-C. [address] [place] [address] Sore Throat (Primary Dx); Medicine, Deb Brown, DIRECTOR SUPPLY CHAIN, C.N.P. [address] [place] [address] [facility], in [address] [address] Social History Tobacco Use Types [...] How often do you attend episcopal or denominational More than 4 time s [...] Comments Blood Pressure 139/65 08/03/2017 8:38 AM CURRICULUM DEVELOPMENT SPECIALIST Pulse 79 08/03/2017 8:38 AM CURRICULUM DEVELOPMENT SPECIALIST Temperature 36.3 ??C (97.3 ??F) 08/03/2017 8:38 AM CURRICULUM DEVELOPMENT SPECIALIST Respiratory Rate 16 08/03/2017 8:38 AM CURRICULUM DEVELOPMENT SPECIALIST Oxygen Saturation 98% 08/03/2017 8:38 AM CURRICULUM DEVELOPMENT SPECIALIST Inhaled Oxygen Concentration - - Weight 147 kg (323 lb 10.2 oz) 08/03/2017 8:38 AM CURRICULUM DEVELOPMENT SPECIALIST Height 158 cm (5' 2.21) 08/03/2017 8:38 AM CURRICULUM DEVELOPMENT SPECIALIST Body Mass Index 58.8 08/03/2017 8:38 AM CURRICULUM DEVELOPMENT SPECIALIST documented in this encounter Progress Notes Deb [...] viral illness. She was instructed to use utgv-akk-aicvzyt pain analgesics and increased fluids for symptom management. We discussed the use of honey as needed for symptom management. She was instructed to contact the clinic with worsening or no improvement in symptoms. All questions were answered. She left in no acute distress. Deb Enamorado C.N.P., R.N. ICULUM DEVELOPMENT SPECIALIST documented in this encounter Plan of Treatment Not on filedocumented as of this encounter Procedures Procedure Name Priority Date/Time Associated Diagnosis Comme nts BACTERIAL CULTURE, Routine 08/03/2017 4:12 PM Res ults for this THROAT CURRICULUM DEVELOPMENT SPECIALIST procedure are i n the results section. RAPID STREP A Routine 08/03/2017 9:27 AM Sore Throat Results for this SCREEN CURRICULUM DEVELOPMENT SPECIALIST procedure are i n the results section. documented in this encounter Results Bacterial Culture, Throat (08/03/2017 4:12 PM CURRICULUM DEVELOPMENT SPECIALIST) [facility] Method Time Signature Throat No growth of 08/05/2017 [facility] Culture Streptococcus 6:38 AM CURRICULUM DEVELOPMENT SPECIALIST [facility] pyogenes [facility] Specimen Anatomical Collection Method Collection Time Receive d Time (Source) Location / / Volume Laterality Throat Swab 08/03/2017 4:12 PM 7 4:12 CURRICULUM DEVELOPMENT SPECIALIST PM CURRICULUM DEVELOPMENT SPECIALIST Deb Enamorado APRN, C.N.P. LAB MICROBIOLOGY - GENE RAL ORDERABLES Performing Organization Address City/[facility]/ZIP Code Phon e Number [facility] [address] [place] [address], [place] [address] [facility] Rapid Strep A Screen Throat (08/03/2017 9:27 AM CURRICULUM DEVELOPMENT SPECIALIST) athologist Signature Rapid Strep A Negative Negative 08/03/2017 [facility] Screen 9:52 AM [facility] Specimen Anatomical Collection Method Collection Time Receive d Time (Source) Location / / Volume Laterality Varies (Throat) 08/03/2017 9:27 AM 2016 9:36 CURRICULUM DEVELOPMENT SPECIALIST AM CURRICULUM DEVELOPMENT SPECIALIST Deb Enamorado APRN, C.N.P. LAB MICROBIOLOGY - GENE RAL ORDERABLES Performing Organization Address City/[facility]/ZIP Code Phon e Number [facility] [address] [place] [phone] [place] [address] LAB documented in this encounter Visit Diagnoses Diagnosis Sore Throat - Primary Cough Unspecified Type documented in this encounter Additional Health Concerns Assessment Noted Time PHQ-9 Depression Total Score: 7 04/07/2017 9:39 AM CDT documented as of this encounter Care Teams Vamp Presser Relationship Specialty Start Date End Date Blaire Bundy P.A.-C. PCP - General 02/04/17 04/26/19 documented as of this encounter
--- OUTSIDE RECORDS SUMMARY | 2022-07-17 08:09 | XMS_ITS | Encounter Summary ---
:1985 Author Organization [facility] Address [address] [place] [address] Care Team Providers Name Role Phone Catracho Bundy P.A.-C. Primary Care Provider [phone] Encounter Details Date Type Department Care Team Description 03/11/[address] [facility] Leonora Melchor, Maureen TARIQ, C.N.P. [address] [place], [place] [phone] (Wo rk) Social [...] How often do you attend orthodoxy or zoroastrian More than 4 time s [...] Miscellaneous Notes Miscellaneous - Leonora Villaseñor R.N., [facility] - 03/11/2017 3:28 PM CDT Ambulatory Discharge Medication List [facility] [address], [address] [place], [place] [phone] Visit Information Name: PUNEET COOLEY [facility] Number: [id number] Current Date: 03/11/2017 15:28:15 Attending Provider: LEONORA VILLASEÑOR R.N., [facility] Primary Care Provider: CATRACHO NAZARIO PA-C [...] WHNP-BC Signed On:11-MAR-2017 15:28:14 Additional Information: Source: [facility] POWERCHART Document Id: [id number] Miscellaneous - Leonora Villaseñor R.N., WHNP-BC - 03/11/2017 3:28 PM CDT Ambulatory Patient Summary [facility] [address], [address] [place], [place] [phone] Visit Information Name: PUNEET COOLEY [facility] Number: [id number] Current Date: 03/11/2017 15:28:15 Physicians [...] Appointments Date Time Location Provider 04/07/2017 09:00 [facility] NOUGAT CUTTER MACHINE Leonora Villaseñor NP Attention: Contact your local [...] if you dont have one. Go to [email or web address] and click on Create Your Account. Then, follow the directions to complete the online form. Youll be asked for your [facility] number which you can find at the top of this document. Your Goals/Additional instructions: Source: [facility] POWERCHART Document Id: [id number] Miscellaneous - Dawna Madera L.P.NBrittaney - 03/11/2017 2:39 PM CDT Adult Thermal Technician Intake/History Adult Thermal Technician Intake/History Entered On: 03/11/2017 14:43 CDT Performed [...] Preferred Communication Mode : Verbal Languages : Indonesian Is Patient Female and 13-50 no hysterectomy [...] MADERA L.P.N. - 03/11/2017 14:39 CDT Source: [facility] [employer] Document Id: [id number] CDT!40 documented in this encounter Plan of [...] exposure to syp hilis. Test Performed by: [place] [id number] Specimen (Source) Anatomical Collection Method Collection Time Re ceived Time Location / / Volume Laterality Blood 03/11/2017 2:24 PM CDT Marisol Irving APRN, C.N.P. LAB BLOOD ADD-ON Performing Organization Address City/[facility] Code Phon e Number POWERCHART POWERCHART NA (ABNORMAL) CBC without Differential (03/11/2017 2:24 PM CDT) Analysis Performed At Patho logist Time Signature Leukocytes 9.6 3.5 - 10.5 POWERCHART X109L Erythrocytes 3.95 3.90 - POWERCHART 5.03 P0206P Hemoglobin 11.6 (L) 12.0 - POWERCHART 15.5 [...] C.N.P. LAB BLOOD ADD-ON Performing Organization Address City/[facility]/ZIP Code Phon e Number POWERCHART POWERCHART NA [...] C.N.P. LAB BLOOD ADD-ON Performing Organization Address City/[facility]/ZIP Code Phon e Number POWERCHART POWERCHART NA documented in this encounter Visit Diagnoses Not on filedocumented in this encounter Additional Health Concerns Assessment Noted Time PHQ-9 Depression Total Score: 11 12/13/2014 9:50 AM CD T documented as of this encounter Care Teams Fuel Distribution System Operator Relationship Specialty Start Date End Date Catracho Bundy P.A.-C. PCP - General 02/04/17 04/26/19 documented as of this encounter
--- OUTSIDE RECORDS SUMMARY | 2022-07-17 08:09 | XMS_ITS | Encounter Summary ---
:[address] [facility] Address [address] [place] [address] Care Team Providers Name Role Phone Catracho Bundy P.A.-C. Primary Care Provider [phone] Encounter Details Date Type Department Care Team Description 06/15/2017 [facility] Leonora Melchor, Maureen TARIQ, C.N.P. [address] [place], [place] [phone] (Wo rk) Social History [...] How often do you attend gnosticism or lutheran More than 4 time s [...] 06/15/2017 10:26 AM CDT Ambulatory Patient Summary [address] [id number] Visit Information Name: COOLEY PUNEET ALVARADO [facility] Number: [id number] Current Date: 06/15/2017 10:26:41 Physicians Attending Provider: LEONORA VILLASEÑOR R.N. [facility] Primary Care Provider: CATRACHO NAZARIO PA-C [...] if you dont have one. Go to [email or web address] and click on Create Your Account. Then, follow the directions to complete the online form. Youll be asked for your [facility] number which you can find at the top of this document. Your Goals/Additional instructions: Source: [facility] POWERCHART Document Id: [id number] Miscellaneous - Leonora Villaseñor R.N., WHNP-BC - 06/15/2017 10:26 AM CDT Ambulatory Discharge Medication List [address] [id number] Visit Information Name: PUNEET COOLEY [facility] Number: [id number] Current Date: 06/15/2017 [...] emergency. Electronically Signed By: LEONORA VILLASEÑOR R.N. [facility] Signed On:15-JUN-2017 10:26:39 Additional Information: Source: [facility] POWERCHART Document Id: [id number] Miscellaneous - Roosevelt Rodriges, L.P.N. - 06/15/2017 10:24 AM CDT Adult Archery Instructor Intake/History Adult Archery Instructor Intake/History Entered On: 06/15/2017 10:27 CDT Performed On: 06/15/2017 10:24 CDT by ROOSEVELT RODRIGES BUSINESS DEVELOPMENT SPECIALIST Intake Chief Complaint : OB check Temperature [...] Body Mass Index : 59.21 kg/m2 DANIROOSEVELT Apollo REID - 06/15/2017 10:24 CDT General Info Information Given By : Patient Languages : Greenlandic Is Patient Female and 13-50 no hysterectomy : No DANI ROOSEVELT Apollo REID - 06/15/2017 10:24 CDT Subjective Pain Symptoms : No ROOSEVELT RODRIGES LPN - 06/15/2017 10:24 CDT Dependent Habits Exposure to Tobacco Smoke : Other: Trying to quit. Smoking Status : Former smoker Tobacco 2A : Yes Tobacco Use/Currently Using : No Tobacco Use/Last 30 Days : No Tobacco Use/Last 12 months : No Tobacco Last Use/Month : November Tobacco Last Use/Year : 2016 ROOSEVELT RODRIGES LPN - 06/15/2017 10:24 CDT Caffeine Use Grid Caffeine Use : Current Type : Coffee, Soft drinks Frequency : Occasionally ROOSEVELT RODRIGES LPN - 06/15/2017 10:24 CDT Recreational Drug Use Grid Drug Use : None ROOSEVELT RODRIGES LPN 06/15/2017 10:24 CDT Source: [facility] Document Id: [id number] CDT!40 documented in this encounter Plan of Treatment Not on filedocumented as of this encounter Visit Diagnoses Not on filedocumented in this encounter Additional Health Concerns Assessment Noted Time PHQ-9 Depression Total Score: 7 04/07/2017 9:39 AM CDT documented as of this encounter Care Teams Mobility Engineer Relationship Specialty Start Date End Date Catracho Bundy P.A.-C. PCP - General 02/04/17 04/26/19 documented as of this encounter
--- OUTSIDE RECORDS SUMMARY | 2022-07-17 08:09 | XMS_ITS | Encounter Summary ---
:1985 Author Organization [facility] Address [address] [place] [address] Care Team Providers Name Role Phone Unavailable Primary Care Provider Unavailable Encounter Details Date Type Department Care Team Description 01/07/2017 Hospital Encounter [facility]X [facility] [address] [place] [phone] (Wo rk) Social History Tobacco Use [...] How often do you attend yazidism or temple More than 4 time s [...] Ordered: OV Est Pt Level 4 - 80162 - 25 min 2. Elevated Blood Pressure [...] Ordered: OV Est Pt Level 4 - 12181 - 25 min 3. High Risk NOS As per #2. Recommended f/u with OB. Ordered: OV Est Pt Level 4 - 73621 - 25 min Cough NOS Infection Urinary [...] HOLMAN MD On: 01/14/2017 06:39 AM Source: [facility] POWERCHART Document Id: [id number] documented in this encounter H&P Notes Puneet Lewis, R.N. - 01/07/2017 10:41 AM CDT Puneet Lewis RN, [employer] Nurse Practitioner Residency [...] PRN Allergies: penicillins Environmental/Occupational Conditions: Works in [place] at a [employer]. Social History: Patient reports smoking cessation about [...] HOLMAN MD On: 01/24/2017 09:59 PM Source: [facility] [employer] Document Id: [id number] documented in this encounter Miscellaneous Notes Miscellaneous [...] care. Thanks, Puneet Lewis (DNP student) Source: [facility] [employer] Document Id: [id number] Miscellaneous - Leonora Holman M.D. - 01/07/2017 10:03 AM CDT Ambulatory Patient Summary [address] [place] [phone] Visit Information Name: PUNEET CLAYTON [facility] Number: [id number] Current Date: 01/07/2017 10:03:11 Physicians [...] in case of emergency. Electronically Signed By: LEOONRA HOLMAN MD Signed On:07-JAN-2017 10:01:26 Your Allergies [...] dont have one. Go to [email or web address] and click on Create Your Account. Then, follow the directions to complete the online form. Youll be asked for your [facility] number which you can find at the top of this document. Your Goals/Additional instructions: Source: [facility] POWERCHART Document Id: [id number] Miscellrenee - Leonora Holman M.D. - 01/07/2017 10:03 AM CDT Ambulatory Discharge Medication List [address] [place] [id number] Visit Information Name: PUNEET CLAYTON [facility] Number: [id number] Current Date: 01/07/2017 10:03:10 Attending [...] MD Signed On:07-JAN-2017 10:01:26 Additional Information: Source: [facility] POWERCHART Document Id: [id number] Leilani - Leonora Holman M.D. - 01/07/2017 10:01 AM CDT Work Excuse January 07, 2017 PUNEET CLAYTON [address] [place] [phone] Dear PUNEET CLAYTON, You were examined in [...] due to acute illness. Sincerely, LEONORA ABAD [address] [place] [id number] Electronic Signature Electronically Signed By: LEONORA HOLMAN MD On: January 07, 2017 This document has images extracted. Source: [facility] [employer] Document Id: [id number] Miscellaneous - Roosevelt Louise L.P.N. - 01/07/2017 [...] LOUISE LPN - 01/07/2017 8:55 CDT [facility] Document Id: [id number] CDT!8 Miscellaneous - Roosevelt Louise L.P.N. - 01/07/2017 8:51 AM CDT Adult Area Operations Manager Intake/History Document Has Been Updated Adult Area Operations Manager Intake/History Entered On: 01/07/2017 8:54 CDT Performed On: 01/07/2017 8:51 CDT by DANI, ROOSEVELT L ORDER ADMINISTRATOR Intake Chief Complaint : URI for 1 month Cough productive green 14-15 weeks preg Would like note to be off work DANIROOSEVELT MENDOZA Apollo ORDER ADMINISTRATOR - 01/07/2017 8:59 CDT Temperature Core : [...] 2 inch(es), 62 inch(es)) DANIROOSEVELT MENDOZA Apollo ORDER ADMINISTRATOR - 01/07/2017 8:51 CDT General Info Information Given By : Patient Languages : Panamanian Is Patient Female and 13-50 no hysterectomy : No DANIROOSEVELT Apollo RODRIGUEZN - 01/07/2017 8:51 CDT Subjective Pain Symptoms : Yes ROOSEVELT LOUISE LPN - 01/07/2017 8:51 CDT Pain Scale Pain Scale Verbal 0-10 : Open ROOSEVELT LOUISE LPN - 01/07/2017 8:51 CDT Pain Pain Assessment [...] LOUISE LPN - 01/07/2017 8:51 CDT [facility] Document Id: [id number] CDT!3 documented in this encounter Plan of [...] M.D. LAB URINE ORDERABLES Performing Organization Address City/[facility] Phon e Number POWERCHART (ABNORMAL) Urinalysis, Routine (01/07/2017 9:21 AM CDT) P athologist Signature Clarity Clear Clear POWERCHART HXUr Color Yellow Colorless POWERCHART Specific 1.010 POWERCHART [place], POCT, U Comment: Reference Range Specific [place]: 1.000-1.035 pH, POCT, Urine 6.0 <5.0 POWERCHART [...] M.D. LAB URINE ORDERABLES Performing Organization Address City/State/[facility] Phon e Number POWERCHART documented in this encounter Visit Diagnoses Not on filedocumented in this encounter Additional Health Concerns Assessment Noted Time PHQ-9 Depression Total Score: 11 12/13/2014 9:50 AM CD T documented as of this encounter
--- OUTSIDE RECORDS SUMMARY | 2022-07-17 08:09 | XMS_ITS | Encounter Summary ---
:1985 Author Organization [facility] Address [address] [place] [address] Care Team Providers Name Role Phone Blaire [...] How often do you attend sabianist or mosque More than 4 time s [...] documented as of this encounter Care Teams Feed Mill Supervisor Relationship Specialty Start Date End Date Blaire Bundy P.A.-C. PCP - General 02/04/17 04/26/19 documented as of this encounter
--- OUTSIDE RECORDS SUMMARY | 2022-07-17 08:09 | XMS_ITS | Encounter Summary ---
:1985 Author Organization [facility] Address [address] [place] [address] Care Team Providers Name Role Phone Blaire [...] How often do you attend bahai or pentecostalism More than 4 time s [...] in this encounter Results HX Syphilis Antibody [place], S (06/23/2017 8:47 AM CDT) [facility] Method Time Signature HX Syphilis Negative Negative [facility] Igg Ab LABORATORIES - W/Reflex, S [facility] Comment: Peripheral IV ? No serologic evidence of exposure to syp hilis. ? Specimen Anatomical Collection Method Collection Time Receive d Time (Source) Location / / Volume Laterality 06/23/2017 8:47 AM 7 8:47 CDT AM CDT Narrative [facility] - 06/23/2017 12:57 PM CDT Peripheral IV Carol Hoskins M.D. LAB HISTORICAL ORDERS Performing Organization Address City/State/ZIP Code Phon e Number [facility] [address] [place], [place] [address] [facility] documented in this encounter Visit Diagnoses Not on filedocumented in this encounter Additional Health Concerns Assessment Noted Time PHQ-9 Depression Total Score: 7 04/07/2017 9:39 AM CDT documented as of this encounter Care Teams Home Management Supervisor Relationship Specialty Start Date End Date Blaire Bundy PGladys. PCP - General 02/04/17 04/26/19 documented as of this encounter
--- OUTSIDE RECORDS SUMMARY | 2022-07-17 08:09 | XMS_ITS | Encounter Summary ---
:1985 Author Organization [facility] Address [address] [place] [address] Care Team Providers Name Role Phone Unavailable Primary Care Provider Unavailable Encounter Details Date Type Department Care Team Description 01/13/2017 Hospital Encounter HX [facility] Leonora Melchor A PRN, C.N.P. [address] [place], [place] [phone] (Wo rk) Social History [...] How often do you attend baptism or advent More than 4 time s [...] given to the patient: Patient Education Materials: Comp Field Case Manager Adapting to : Second Trimester Comp Field Case Manager Adapting to : Second Trimester Keep up [...] schedule. Try taking shorter breaks more often. [email or web address] You Travel The second trimester may be [...] smoke. ?? Dont breathe fumes from nail citizen of [place], hair spray, cleansers, or other chemicals. ?? [id number] [place] [address]. All rights reserved. This information is not intended as a substitute for professional medical care. Always follow your healthcare professional's instructions. This document has images extracted. Please consider using Consult A Doctor for all your patient education needs. Source: [facility] POWERCHART Document Id: [id number] documented in this encounter Miscellaneous Notes Miscellaneous - Leonora Villaseñor R.N. - 01/13/2017 11:31 AM CDT Ambulatory Patient Summary [facility] [address] [place], [place] [phone] Visit Information Name: PUNEET COOLEY [facility] Number: [id number] Current Date: 01/13/2017 11:31:39 Physicians Attending Provider: LEONORA VILLASEÑOR R.N., [facility] Primary Care Provider: CATRACHO NAZARIO PA-C PUNEET [...] emergency. Electronically Signed By: LEONORA VILLASEÑOR R.N., [facility] Signed On:13-JAN-2017 11:31:37 Your Allergies & Intolerances Substance Reaction Symptoms Category Comments penicillins Drug Your Problem List Problem Status Onset Comments Headache Migraine Active 01/21/2012 Headache Active 10/24/2007 11/18/13 Headache Dysthymic Disorder Active 08/01/2010 11/18/13 Dysthymic disorder Abuse Tobacco Smoking NOS Active Body Mass Index (BMI) 50.0-59.9 Adult Active Active 10/03/2016 Your Upcoming Appointments Date Time Location Provider 02/11/2017 09:30 [facility] Ultrasound [facility] 1 02/11/2017 10:15 [facility] Marisol Irving CNP Attention: Contact your local [...] smoke. ?? Dont breathe fumes from nail citizen of [place], hair spray, cleansers, or other chemicals. ?? [id number] Cecil Paez, [address] [place] [address], [place] [address]. All rights reserved. This information is not [...] if you dont have one. Go to [email or web address] and click on Create Your Account. Then, follow the directions to complete the online form. Youll be asked for your [facility] number which you can find at the top of this document. Your Goals/Additional instructions: This document has images extracted. Please consider using Consult A Doctor for all your patient education needs. Source: [facility] POWERCHART Document Id: [id number] Miscellaneous - Leonora Villaseñor R.N. - 01/13/2017 11:31 AM CDT Ambulatory Discharge Medication List [facility] [address], [address] [place], [place] [phone] Visit Information Name: COOLEYDORITAPUNEETCARRIE ALVARADO [facility] Number: [id number] Current Date: 01/13/2017 11:31:38 Attending Provider: LEONORA VILLASEÑOR R.N., [facility] Primary Care Provider: CATRACHO NAZARIO PA-C DORITA [...] emergency. Electronically Signed By: LEONORA VILLASEÑOR R.N., [facility] Signed On:13-JAN-2017 11:31:37 Additional Information: Source: [facility] POWERCHART Document Id: [id number] Miscellaneous - Cleopatra Laguerre LBrittaneyP.N. - 01/13/2017 10:18 AM CDT Adult Advanced Manager Intake/History Adult Advanced Manager Intake/History Entered On: 01/13/2017 10:22 CDT [...] Information Given By : Patient Languages : Anguillan Is Patient Female and 13-50 no hysterectomy : Yes Status : Confirmed positive Are you ? : No CLEOPATRA LAGUERRE LPN - 01/13/2017 10:18 CDT Subjective Pain Symptoms : No CLEOPATRA LAGUERRE [facility] - 01/13/2017 10:18 CDT Dependent Habits Exposure to Tobacco Smoke : Patient smokes Smoking Status : Former smoker Tobacco 2A : Yes Tobacco Use/Currently Using : No Tobacco Use/Last 30 Days : No Tobacco Use/Last 12 months : Yes Tobacco Last Use/Month : November Tobacco Last Use/Year : 2016 Type : Other: quit 11/2016 CLEOPATRA LAGUERRE [facility] - 01/13/2017 10:18 CDT Caffeine Use Grid Caffeine Use : Current Type : Coffee, Soft drinks Frequency : Occasionally CLEOPATRA LAGUERRE [facility] 01/13/2017 10:18 CDT Recreational Drug Use Grid Drug Use : None CLEOPATRA LAGUERRE [facility] 01/13/2017 10:18 CDT Source: [employer] Document Id: [id number] CDT!42 documented in this encounter Plan of Treatment Not on filedocumented as of this encounter Visit Diagnoses Not on filedocumented in this encounter Additional Health Concerns Assessment Noted Time PHQ-9 Depression Total Score: 11 12/13/2014 9:50 AM CD T documented as of this encounter
--- OUTSIDE RECORDS SUMMARY | 2022-07-17 08:09 | XMS_ITS | Encounter Summary ---
:1985 Author Organization [facility] Address [address] [place] [address] Care Team Providers Name Role Phone Blaire [...] Organization Address City/State/ZIP Code Phon e Number IIPR IIPR NA documented in this encounter Visit Diagnoses Not on filedocumented in this encounter Additional Health Concerns Assessment Noted Time PHQ-9 Depression Total Score: 7 04/07/2017 9:39 AM CDT documented as of this encounter Care Teams Assistant Center Director Relationship Specialty Start Date End Date Blaire Bundy P.A.-C. PCP - General 02/04/17 04/26/19 documented as of this encounter
--- OUTSIDE RECORDS SUMMARY | 2022-07-17 08:10 | XMS_ITS | Encounter Summary ---
:1985 Author Organization [facility] Address [address] [place] [address] Care Team Providers Name Role Phone Unavailable Primary Care Provider Unavailable Encounter Details Date Type Department Care Team Description 10/12/2016 Hospital Encounter HX [facility] ME Maureen Hooker, RUBBER MIXER, C.N.P., D. N.P. [address] [place] [phone] (Wo rk) Social History Tobacco [...] How often do you attend religion or baptism More than 4 time s [...] Comments Blood Pressure 116/78 10/12/2016 8:36 AM CIRCULAR KNIFE MACHINE CUTTER Pulse 74 10/12/2016 8:36 AM CIRCULAR KNIFE MACHINE CUTTER Temperature - - Respiratory Rate 16 10/12/2016 8:36 AM CIRCULAR KNIFE MACHINE CUTTER Oxygen Saturation - - Inhaled Oxygen Concentration - - Weight - - Height 157 cm (5' 1.81) 10/12/2016 8:36 AM CIRCULAR KNIFE MACHINE CUTTER Body Mass Index - - documented in [...] discomfort, but has not tried anything else [id number] for symptoms. No fever or chills. No [...] Ordered: OV Est Pt Level 3 - 71403 - 15 min Rapid Strep Confirmation 2. [...] C.N.P., D.N.P On: 10/12/2016 09:02 AM Source: [facility] POWERCHART Document Id: [id number] ULAR KNIFE MACHINE CUTTER documented in this encounter Miscellaneous Notes Miscellaneous - Rylee Hooker APRN, C.N.P., D.N.P. - 10/13/2016 11:16 AM CIRCULAR KNIFE MACHINE CUTTER Results Notification Document Contains Addenda Addendum by CATRACHO NAZARIO PA-C on October 13, 2016 11:21 CIRCULAR KNIFE MACHINE CUTTER Discussed with patient and order for ENT was sent for patient. From: RYLEE HOOKER APRN CBrittaneyNJud, Priti.N.P Sent: 10/13/2016 11:16:43 CIRCULAR KNIFE MACHINE CUTTER Show up: 10/13/2016 11:11:00 CIRCULAR KNIFE MACHINE CUTTER Subject: Results Notification Patient was contact that [...] Name MBO POS Rapid Strep Confirmation Source: [facility] POWERCHART Document Id: [id number] ULAR KNIFE MACHINE CUTTER Miscellaneous - Jude Cardona L.P.N. - 10/12/2016 8:36 AM CST Adult Barrel Rifler Button Intake/History Adult Barrel Rifler Button Intake/History Entered On: 10/12/2016 8:37 CIRCULAR KNIFE MACHINE CUTTER Performed On: 10/12/2016 8:36 CIRCULAR KNIFE MACHINE CUTTER by JUDE CARDONA LPN Intake Chief Complaint [...] inch(es)) JUDE CARDONA LPN - 10/12/2016 8:36 CIRCULAR KNIFE MACHINE CUTTER General Info Languages : Slovak Is Patient Female and 13-50 no hysterectomy : Yes Status : Patient denies Are you ? : No JUDE CARDONA LPN - 10/12/2016 8:36 CIRCULAR KNIFE MACHINE CUTTER Subjective Pain Symptoms : Yes WEST CARDONANADIA Purdy LPN - 10/12/2016 8:36 CIRCULAR KNIFE MACHINE CUTTER Pain Scale Pain Scale Verbal 0-10 : Open JUDE CARDONA JEANETTE 10/12/2016 8:36 CIRCULAR KNIFE MACHINE CUTTER Pain Pain Assessment Grid Pain 1 Location : Throat Laterality : Bilateral Intensity : 3 ELVIN JUDE R BOILER RELINER - 10/12/2016 8:36 CIRCULAR KNIFE MACHINE CUTTER Dependent Habits Exposure to Tobacco Smoke : Patient smokes Smoking Status : Current every day smoker Tobacco 2A : Yes Tobacco Use/Currently Using : Yes Tobacco Use/Last 30 Days : Yes Tobacco Use/Last 12 months : Yes Type : Cigarettes: Less than 20 per day Tobacco Use/Advised to Quit : Yes CARDONA JUDE Purdy LPN 10/12/2016 8:36 CIRCULAR KNIFE MACHINE CUTTER Caffeine Use Grid Caffeine Use : Current Type : Coffee, Soft drinks Frequency : Occasionally VENESSA CARDONASSNADIA Purdy LPN 10/12/2016 8:36 CIRCULAR KNIFE MACHINE CUTTER Recreational Drug Use Grid Drug Use : None CARDONAJUDE BOILER RELINER 10/12/2016 8:36 CIRCULAR KNIFE MACHINE CUTTER Source: [facility] [employer] Document Id: [id number] CIRCULAR KNIFE MACHINE CUTTER!46 ULAR KNIFE MACHINE CUTTER documented in this encounter Plan of Treatment Not on filedocumented as of this encounter Procedures Procedure Name Priority Date/Time Associated Diagnosis Comme nts RAPID STREP A Routine 10/12/2016 8:15 AM Results for this SCREEN CIRCULAR KNIFE MACHINE CUTTER procedure are i n the results section. RAPID STREP A Routine 10/12/2016 8:15 AM Results for this SCREEN CIRCULAR KNIFE MACHINE CUTTER procedure are i n the results section. documented in this encounter Results (ABNORMAL) Rapid Strep A Screen (10/12/2016 8:15 AM CIRCULAR KNIFE MACHINE CUTTER) [facility] Method Time Signature HXRapid Strep (POSITIVE) POWERCHART Confirmation HXPre Pending POWERCHART HXFinal POS POWERCHART HXFinal [facility] [address] [facility] [address] Specimen Anatomical Collection Method Collection Time Receive d Time (Source) Location / / Volume Laterality Throat 10/12/2016 8:15 AM 02/20/201 7 8:15 CIRCULAR KNIFE MACHINE CUTTER AM CIRCULAR KNIFE MACHINE CUTTER Rylee Hooker APRN C.N.P., D.N.P. LAB MICROBIOLOGY - GENERAL ORDERABLES Performing Organization Address City/State/ZIP Code Phon e Number POWERCHART Rapid Strep A Screen (10/12/2016 8:15 AM CIRCULAR KNIFE MACHINE CUTTER) [facility] Method Time Signature HXStrep A POWERCHART Screen Rapid HXFinal Negative for POWERCHART Strep Group A by rapid screen. HXFinal Culture POWERCHART confirmation to follow. Specimen (Source) Anatomical Collection Method Collection Time Re ceived Time Location / / Volume Laterality Throat 10/12/2016 8:15 AM CIRCULAR KNIFE MACHINE CUTTER Marlyn Crocker APRN.N.P., D.N.P. LAB MICROBIOLOGY - GENERAL ORDERABLES Performing Organization Address City/[facility] Code Phon e Number POWERCHART documented in this encounter Visit Diagnoses Not on filedocumented in this encounter Additional Health Concerns Assessment Noted Time PHQ-9 Depression Total Score: 11 12/13/2014 9:50 AM CD T documented as of this encounter
--- OUTSIDE RECORDS SUMMARY | 2022-07-17 08:10 | XMS_ITS | Encounter Summary ---
:1985 Author Organization [facility] Address [address] [place] [address] Care Team Providers Name Role Phone Unavailable Primary Care Provider Unavailable Encounter Details Date Type Department Care Team Description 11/09/2016 Hospital Encounter HX [facility] Ashwin Bundy P.ACalistaCBrittaney [address] [place], [place] [phone] (Wo rk) Social History Tobacco Use Types [...] How often do you attend christianity or denominational More than 4 time s [...] convenient for you! From: PUNEET CLAYTON To: [facility] (CATERING STAFF MEMBER) Sent: 11/16/2016 11:13 a.m. CDT Subject: RE: [...] hour appointment. Please call the clinic in [place], talk with Tejal in [facility] to schedule! talk soon! Leonora Villaseñor Source: [facility] [employer] Document Id: [id number] Electronically signed by Conversion, [facility] Professor Of Religion [id number] at 02/02/2017 2:11 AM CDT Miscellaneous - [...] hour appointment. Please call the clinic in [place], [facility] with [facility]al in [facility] to schedule! talk soon! Leonora Villaseñor Source: [facility] [employer] Document Id: [id number] Electronically signed by Conversion, [facility] Professor Of Religion [id number] at 02/02/2017 2:11 AM CDT documented in [...] Performed At Patho logist Time Signature Beta-HCG, 04430.0 <=4.9 IUL POWERCHART Quantitative, (H) S Comment: [...]
--- OUTSIDE RECORDS SUMMARY | 2022-07-17 08:10 | XMS_ITS | Encounter Summary ---
:1985 Author Organization [facility] Address [address] [place] [address] Care Team Providers Name Role Phone Unavailable Primary Care Provider Unavailable Encounter Details Date Type Department Care Team Description 01/15/2016 Hospital Encounter [facility] Kyle Colmenares M .D., M.P.H. [address] [place], [place] [phone] (Wo rk) Social History [...] How often do you attend jainism or rastafari More than 4 time s [...] HINDS RN On: 01/15/2016 10:21 AM Source: [facility] POWERCHART Document Id: [id number] documented in this encounter Plan of Treatment [...] M.Tuberculos-M piyush HXTB Ag 0.00 INTUML POWERCHART [facility]-[place] Comment: ADDITIONAL INFORMATIO N This is a [...] when interpreting QuantiFERON-TB results. Test Performed by: [facility] [place] [id number] Executive Talent Acquisition Consultant: Rubio Marshall II, M.D., Ph.D. Specimen (Source) Anatomical Collection Method Collection Time Re ceived Time Location / / Volume Laterality Blood 01/15/2016 10:39 AM CDT Kyle Coleman M.D., M.P.H. LAB MICROBIOLOGY - BLOOD O BOBBY Performing Organization Address [facility] Phon e Number POWERCHART Mumps Ab, IgG (01/15/2016 10:39 AM CDT) P athologist Signature Mumps Ab, IgG, Positive POWERCHART S Comment: Results suggest response to immunization or prior exposure to the virus. REFERENCE VALUE------ Vaccinated: Positive (>=1.1 AI) Unvaccinated: Negative (<=0.8 AI) Mumps Ab, IgG, S 3.3 POWERCHART Comment: Test Performed by: [place] [address] Executive Talent Acquisition Consultant: Rubio Marshall II MTomeka, Ph.D. Specimen (Source) Anatomical Collection Method Collection Time Re ceived Time Location / / Volume Laterality Blood 01/15/2016 10:39 AM CDT Kyle Coleman M.D., M.P.HBrittaney LAB MICROBIOLOGY - BLOOD O BOBBY Performing Organization Address [facility] Phon e Number POWERCHART Rubella Antibodies, IgG (01/15/2016 10:39 AM CDT) P athologist Signature HX Rubella Positive POWERCHART [facility] Comment: Results suggest response to immunization or prior exposure to the virus. REFERENCE VALUE------ Vaccinated: Positive (>=1.0 AI) Unvaccinated: Negative (<=0.7 AI) Rubella IgG Antibody Index 1.2 [facility] Comment: Test Performed by: [place] [id number] Executive Talent Acquisition Consultant: Rubio Marshall II MTomeka, Ph.D. Specimen (Source) Anatomical Collection Method Collection Time Re ceived Time Location / / Volume Laterality Blood 01/15/2016 10:39 AM CDT Kyle Coleman M.D., M.P.H. LAB MICROBIOLOGY - BLOOD O BOBBY Performing Organization Address [facility] Phon e Number POWERCHART Measles (Rubeola) Ab, IgG (01/15/2016 10:39 AM CDT) P athologist Signature Measles Positive POWERCHART ([place]) Ab, IgG, S Comment: Results suggest response to immunization or prior exposure to the virus. REFERENCE VALUE------ Vaccinated: Positive (>=1.1 AI) Unvaccinated: Negative (<=0.8 AI) Measles IgG Antibody Index 1.4 [facility] Comment: Test Performed by: [place] [id number] Executive Talent Acquisition Consultant: Rubio Marshall II MTomeka, Ph.D. Specimen (Source) Anatomical Collection Method Collection Time Re ceived Time Location / / Volume Laterality Blood 01/15/2016 10:39 AM CDT Kyle Coleman M.D., M.P.H. LAB MICROBIOLOGY - BLOOD O BOBBY Performing Organization Address [facility] Phon e Number POWERCHART Varicella-Zoster Antibody, IgG (01/15/2016 10:39 AM CDT) P athologist Signature Varicella-Zost Negative POWERCHART er Ab, IgG, S Comment: REFERENCE VALUE------ Vaccinated: Positive (>=1.1 AI) Unvaccinated: Negative (<=0.8 AI) Varicella-Zoster Ab, IgG, S 0.2 PO WERCHART Comment: Test Performed by: [place] [address] Executive Talent Acquisition Consultant: Rubio Marshall II, M.D., Ph.D. Specimen (Source) Anatomical Collection Method Collection Time Re ceived Time Location / / Volume Laterality Blood 01/15/2016 10:39 AM CDT Kyle Coleman M.D., M.P.H. LAB MICROBIOLOGY - BLOOD O RDERABLES Performing Organization Address City/State/ZIP Code Phon e Number POWERCHART documented in this encounter Visit Diagnoses Not on filedocumented in this encounter Additional Health Concerns Assessment Noted Time PHQ-9 Depression Total Score: 11 12/13/2014 9:50 AM CD T documented as of this encounter
--- OUTSIDE RECORDS SUMMARY | 2022-07-17 08:10 | XMS_ITS | Encounter Summary ---
:1985 Author Organization [facility] Address [address] [place] [address] Care Team Providers Name Role Phone Unavailable Primary Care Provider Unavailable Encounter Details Date Type Department Care Team Description 02/07/2016 Hospital Encounter [facility] Kyle Colmenares M .D., M.P.H. [address] [place], [place] [phone] (Wo rk) Social History [...] How often do you attend hoahaoism or hinduism More than 4 time s [...] Only Visit Documentation : MRO review for [facility]. DEV CASPER LPN - 02/07/2016 11:27 CDT Source: [facility] POWERCHART Document Id: [id number] CDT!3 documented in this encounter Plan of Treatment Not on filedocumented as of this encounter Visit Diagnoses Not on filedocumented in this encounter Additional Health Concerns Assessment Noted Time PHQ-9 Depression Total Score: 11 12/13/2014 9:50 AM CD T documented as of this encounter
--- OUTSIDE RECORDS SUMMARY | 2022-07-17 08:10 | XMS_ITS | Encounter Summary ---
:[address] [facility] Address [address] [place] [address] Care Team Providers Name Role Phone Unavailable Primary Care Provider Unavailable Encounter Details Date Type Department Care Team Description 03/15/2015 Hospital Encounter HX [facility] Barbra Vora M.D. [address] [place] [phone] (Wo rk) Social History Tobacco Use [...] How often do you attend rastafari or evangelical More than 4 time s [...] Chang M.D. - 03/15/2015 9:12 AM CDT [id number] Document Contains Addenda REVISION HISTORY March 18, 2015 at 10:17 a.m. - Addendum added by Trev Chang M.D. The document below is the most current and includes the modifications. The patient has no history of narcolepsy in the past, but recently has been falling asleep more easily. She has to go to work in [place] and one night at 10 p.m. as [...] a consultation with the pulmonary specialists at [facility]. She should take Zoloft 150 mg a.m. [...] CHANG MD On: 03/18/2015 03:53 PM Source: [facility] MHSDOLBEYNONRADSYS Document Id: [id number] documented in this encounter Miscellaneous Notes Miscellaneous - Trev Chang M.D. - 03/15/2015 10:16 AM CDT Ambulatory Patient Summary [address] [id number] Visit Information Name: PUNEET FRIED [facility] Number: [id number] Current Date: 03/15/2015 10:16:07 [...] a day Discontinue [facility] [address] [id number] SUMAtriptan (SUMAtriptan 50 mg oral tablet) 1 Tablet(s), Oral, as directed as needed for Migraine headache Take 1 tablet at onset of headache. Repeat after two hours if needed. traZODone (traZODone 50 mg oral tablet) 1 Tablet(s), Oral, once a day [facility] [address] [address] Stop Taking the Following Medications: [...] Youll be asked for your [facility] number which you can find at the top of this document. Your Goals/Additional instructions: Puneet , please do not drive to work untill your sleep problem is resolved.Also see Neurologist in a month; need MRI Scan of Brain first. Source: [facility] POWERCHART Document Id: [id number] Miscellaneous - Trev Chang M.D. - 03/15/2015 10:16 AM CDT Ambulatory Discharge Medication List [address] [id number] Visit Information Name: FARIHA PUNEETCARRIE ALVARADO [facility] Number: [id number] Visit Date: 03/15/2015 10:16:05 [...] a day Discontinue Velafaxine New Routed to [facility] [place] [address] SUMAtriptan (SUMAtriptan 50 mg oral tablet) 1 Tablet(s), Oral, as directed as needed for Migraine headache Take 1 tablet at onset of headache. Repeat after two hours if needed. traZODone (traZODone 50 mg oral tablet) 1 Tablet(s), Oral, once a day [facility] [address] [address] Stop Taking the Following Medications: Medication list [...] Signed By: Signed On: Additional Information: Source: [facility] POWERCHART Document Id: [id number] Miscellaneous - Trev Chang M.D. - 03/15/2015 10:13 AM CDT Addendum by TREV CHANG MD on 22 March 2015 08:51:25 CDT will do it today.Thanks Addendum by ADITYA HWANG on 15 March 2015 15:39:00 CDT From: ADITYA HWANG To: TREV CHANG MD; Sent: 03/15/2015 15:39:00 CDT ! Subject: FW: The dictation for this patient needs to be submitted LEN for the Referrals to [facility], [facility]. Addendum by ADITYA HWANG on 15 March 2015 14:28:10 CDT From: ADITYA HWANG To: ADITYA HWANG; Sent: 03/15/2015 14:28:10 CDT Subject: RE: Referral submitted via online. [facility] scheduling staff will contact patient with appt. info. From: TREV CHANG MD To: ADITYA HWANG; Sent: 03/15/2015 10:13:53 CDT Aditya, this patient,Puneet, has an extremely serious problem with sleep Apnea. Please arrange Consult with sleep Specialist SOON POSSIBLE. Study can follow. Source: [facility] POWERCHART Document Id: [id number] Electronically signed by Conversion, [facility] Sales Order Clerk [id number] at 01/18/2017 12:33 AM CDT Miscellaneous - Mimi Herrera L.P.N. 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
--- OUTSIDE RECORDS SUMMARY | 2022-07-17 08:10 | XMS_ITS | Encounter Summary ---
:1985 Author Organization [facility] Address [address] [place] [address] Care Team Providers Name Role Phone Unavailable Primary Care Provider Unavailable Encounter Details Date Type Department Care Team Description 02/15/2016 Hospital Encounter HX [facility] Renny Castro M.D. [address] [place], [place] [phone] (Wo rk) Social History [...] How often do you attend hindu or confucianist More than 4 time s [...] Acuna M.D. - 02/15/2016 8:56 AM CDT [id number] CHIEF COMPLAINT/REASON FOR VISIT Sore throat. HISTORY [...] Timbo Acuna M.D./robb Electronically Signed By: TIMBO ACNUA MD On: 02/18/2016 05:30 PM Source: [facility] MHSDOLBEYNONRADSYS Document Id: [id number] documented in this encounter Miscellaneous Notes Miscellaneous - Timbo Acuna M.D. - 02/15/2016 10:25 AM CDT Work Excuse February 15, 2016 PUNEET CLAYTON [address] [facility] [id number] Dear PUNEET CLAYTON, You were examined in [...] 02/16/2016 Notes: _ Sincerely, TIMBO ACUNA [address] [place] [address] Electronic Signature Electronically Signed By: TIMBO ACUNA MD On: February 15, 2016 This document has images extracted. Source: [facility] POWERCHART Document Id: [id number] Miscellaneous - Craig Tolentino, L.P.N. 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 : No CRAIG TOLENTINO [facility] - 02/15/2016 9:21 CDT Subjective Pain Symptoms : Yes CRAIG TOLENTINO [facility] - 02/15/2016 9:21 CDT Pain Scale Pain Scale Verbal 0-10 : Open CRAIG TOLENTINO [facility] - 02/15/2016 9:21 CDT Pain Pain Assessment Grid Pain 1 Location : Throat Intensity : 8 CRAIG TOLENTINO [facility] - 02/15/2016 9:21 CDT Dependent Habits Exposure to Tobacco Smoke : Patient smokes Smoking Status : Current every day smoker Tobacco 2A : Yes Tobacco Use/Currently Using : Yes Tobacco Use/Last 30 Days : Yes Tobacco Use/Last 12 months : Yes Type : Cigarettes: Less than 20 per day Tobacco Use/Advised to Quit : Yes Alcohol Use : No CRAIG TOLENTINO [facility] - 02/15/2016 9:21 CDT Caffeine Use Grid Caffeine Use : Current Type : Coffee, Soft drinks Frequency : Occasionally CRAIG TOLENTINO [facility] - 02/15/2016 9:21 CDT Recreational Drug Use Grid Drug Use : None CRAIG TOLENTINO [facility] - 02/15/2016 9:21 CDT [facility] Document Id: [id number] CDT!49 documented in this encounter Plan of Treatment Not on filedocumented as of this encounter Procedures Procedure Name Priority Date/Time Associated Diagnosis Comme nts RAPID STREP A Routine 02/15/2016 9:27 AM Results for this SCREEN CDT procedure are i n the results section. documented in this encounter Results (ABNORMAL) Rapid Strep A Screen (02/15/2016 9:27 AM CDT) [facility] gist Method Time Signature [...]
--- OUTSIDE RECORDS SUMMARY | 2022-07-17 08:10 | XMS_ITS | Encounter Summary ---
:1985 Author Organization [facility] Address [address] [place] [address] Care Team Providers Name Role Phone Unavailable Primary Care Provider Unavailable Encounter Details Date Type Department Care Team Description 11/05/2014 - Hospital Encounter [facility] John Berman 05/22/2015 Mago Purdy, M.S. [address] [place] [phone] Social History Tobacco Use Types Packs/Day Years [...] How often do you attend yarsanism or islam More than 4 time s [...] WANG PT On: 12/31/2014 08:57 AM Source: [employer] POWERCHART Document Id: [id number] documented in this encounter Progress Notes Dev [...] as able. Total Visit Time: 25 minutes Retail Loss Prevention Officer Present NA Electronically Signed By: DEV WANG PT On: 11/28/2014 11:31 AM Source: [employer] Document Id: [id number] Dev Wang P.T. - 11/21/2014 12:33 PM [...] as able. Total Visit Time: 27 minutes Retail Loss Prevention Officer Present NA Electronically Signed By: DEV WANG PT On: 11/21/2014 12:41 PM Source: [employer] Document Id: [id number] Daniel Craft P.T. - 11/16/2014 11:17 AM [...] cervical stabilization. Total Visit Time: 22 minutes Retail Loss Prevention Officer Present NA Electronically Signed By: DANIEL CRAFT PT On: 11/16/2014 11:20 AM Source: [facility] POWERCHART Document Id: [id number] Dev Wang P.T. - 11/07/2014 10:56 AM [...] cervical stabilization. 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 This plan of care has been discussed with the patient/infant childcare provider and the patient/infant childcare provider is in agreement. Frequency / Duration: Patient will be seen 2 session(s) every week(s) for 8 weeks for a total of 16 visits. I certify that the above rehabilitation services are required and authorized by ma, and that the patient's plan will be [...] huma stabilization. TOTAL VISIT TIME: 45 minutes PUPIL PERSONNEL SERVICES DIRECTOR PRESENT NA MULTIDISCIPLINARY PATIENT / FAMILY EDUCATION [...] MONACO PA-C On: 11/05/2014 12:11 PM Source: [employer] Document Id: [id number] documented in this encounter Miscellaneous Notes Miscellaneous - Conversion, Historical Provider Ser - 11/08/2014 8:03 AM CDT Coding Summary-Paper Based CODING DATE: 11/08/2014 FINAL [facility] STATUS: Still Patient/Expected to Rtn Oupt [facility] PAYOR: [employer] ADMIT DX: V57.1 Care [...] Revised Date Saved: 11/08/2014 08:03 am Source: [facility] POWERCHART Document Id: [id number] documented in this encounter Plan of Treatment Not on filedocumented as of this encounter Visit Diagnoses Not on filedocumented in this encounter Additional Health Concerns Assessment Noted Time PHQ-9 Depression Total Score: 18 05/02/2014 9:45 AM CD T documented as of this encounter
--- OUTSIDE RECORDS SUMMARY | 2022-07-17 08:10 | XMS_ITS | Encounter Summary ---
:1985 Author Organization [facility] Address [address] [place] [address] Care Team Providers Name Role Phone Unavailable Primary Care Provider Unavailable Encounter Details Date Type Department Care Team Description 12/09/2016 Hospital Encounter HX [facility] Rabia Melchor A PRN, C.N.P. [address] [place], [place] [phone] (Wo rk) Social History [...] How often do you attend congregation or yazidism More than 4 time s [...] oxygen. G1: 1 FT Date: 01-03-2008. Location [place]. weight 7#13oz Complications high blood pressure Delivery [...] Found Sexual history Brendon, . 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 Director Airport: Normal external genitalia. 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 Genetic testing and screening options discussed, booklet given. She is not interested in meeting with a genetic specialist or partner screening at this time. 6) BMI 59. planning delivery at [facility]. will plan for shared care. undecided on where anatomy scan ultrasound will be, here or at [facility]. 7) smoker, quitting. down to 1-2 cigs/week Referrals: _ Electronically Signed By: RABIA REAVES CNP, RN On: 12/09/2016 10:02 AM Modified by and Electronically Signed by: RABIA REAVES CNP RN On: 12/09/2016 10:02 AM Source: [facility] POWERCHART Document Id: [id number] documented in this encounter Nursing Notes Dawna [...] Medical ; Code: 305.1 ; Contributor System: Babycare ; Last Updated: 12/12/2014 9:21 CDT ; [...] Medical ; Code: 784.0 ; Contributor System: GME Medical EngineeringChart ; Last Updated: 12/12/2014 9:11 CDT ; [...] RABIA HOLMAN MD; Vocabulary: ICD-9-CM (SNOMED CT :305958258 ) Name of Problem: ; Onset Date: 10/03/2016 ; Recorder: DAWNA MADERA L.P.N.; Confirmation: Confirmed ; Classification: Medical ; Code: 295493141 ; Last Updated: 12/09/2016 8:32 CDT ; Life Cycle Status: Active ; Responsible Provider: DAWNA MADERA L.P.N.; Vocabulary: SNOMED CT Diagnoses(Active) Date: 12/09/2016 ; Confirmation: Confirmed ; Clinical Dx: ; Classification: Medical ; Code: SNOMED CT ; Probability: 0 ; Diagnosis Code: 059656746 - Procedure History (As Of: 12/09/2016 09:09:45 [...] Medical ; Code: 346.90 ; Contributor System: Babycare ; Last Updated: 12/12/2014 9:11 CDT ; Life Cycle Status: Active ; Responsible Provider: RABIA HOLMAN MD; Vocabulary: ICD-9-CM Headache Name of Problem: Headache ; Onset Date: 10/24/2007 ; Confirmation: Confirmed ; Classification: Medical ; Code: 784.0 ; Contributor System: GME Medical EngineeringChart ; Last Updated: 12/12/2014 9:11 CDT ; LifeCycle Status: Active ; Vocabulary: ICD-9-CM ; Comments: - Headache Dysthymic Disorder Name of Problem: Dysthymic Disorder ; Onset Date: 08/01/2010 ; Confirmation: Confirmed ; Classification: Medical ; Code: 300.4 ; Contributor System: GME Medical EngineeringChart ; Last Updated: 12/12/2014 9:11 CDT ; Life Cycle Status: Active ; Vocabulary: ICD-9-CM ; Comments: - Dysthymic disorder Name of Problem: ; Recorder: NICHOLE ADDISON; Confirmation: Confirmed ; Classification: Medical ; Code: 840099942 ; Last Updated: 12/12/2014 9:12 CDT ; [...] Comments: 03/13/2014 13:47 - JORY COPPOLA F NYLON MENDER brain cancer ; Value: Positive Grandfather: maternal Full Name: maternal ; Relation: Grandfather ; Nomenclature: Cancer ; Comments: 03/13/2014 13:47 - PLEINSTEPHANIEY F NYLON MENDER larynx ; Value: Positive Grandmother: maternal Full Name: maternal ; Relation: Grandmother ; Nomenclature: Cancer ; Comments: 03/13/2014 13:47 - PLEIN JORY F NYLON MENDER ear ; Value: Positive Anesth/Transfusion Transfusion Acceptable [...] None Behavioral Health Screen/Safety Assmt : No Episcopal Preference : No qualifying data available. DAWNA [...] CNP, SHRUTHI - 12/09/2016 10:03 CDT Source: [facility] POWERCHART Document Id: [id number]!27 documented in this encounter Miscellaneous Notes Miscellaneous - Rabia Reaves R.N., [facility]- - 05/20/2017 9:10 AM CDT RE: From: RABIA REAVES R.N. [facility] To: PUNEET CLAYTON Sent: 05/20/2017 09:10:24 [...] From: PUNEET CLAYTON To: RABIA REAVES R.N. [facility] Sent: 05/19/2017 4:41:33 PM ([facility]-06:00) Central Time ([place] & [place]) Subject: RE: Should it hurt to walk though and when I move? From: RABIA REAVES R.N. [facility] To: PUNEET CLAYTON Sent: 05/19/2017 16:18:07 CDT Subject: RE: As you get closer to the end of the , it is not uncommon to have increased pelvic or vaginal pressure. If you have noticed a significant change in how you feel though, you should come in to beseen. From: PUNEET CLAYTON To: RABIA REAVES R.N. [facility] Sent: 05/19/2017 12:08:54 PM ([facility]-06:00) Central Time ([place] & [place]) Subject: [...] questions. have a good day! Rabia Source: [facility] POWERCHART Document Id: [id number] Miscellaneous - Rab[facility]aves R.N., [facility] - 05/19/2017 4:18 PM CDT RE: From: RABIA REAVES R.N. [facility] To: PUNEET CLAYTON Sent: 05/19/2017 16:18:07 CDT Subject: RE: As you get closer to the end of the , it is not uncommon to have increased pelvic or vaginal pressure. If you have noticed a significant change in how you feel though, you should come in to beseen. From: PUNEET CLAYTON To: RABIA REAVES R.N. [facility] Sent: 05/19/2017 12:08:54 PM ([facility]-06:00) Central Time ([place] & [place]) Subject: [...] questions. have a good day! Rabia [facility] Document Id: [id number] Miscellaneous - Rabia Reaves R.N. - 12/15/2016 [...] questions. have a good day! Rabia Source: [employer]ion Document Id: [id number] Electronically signed by Roland [facility] Emergency Preparedness Coordinator [id number] at 02/02/2017 12:38 PM CDT Leilani - [...] x10(9)/L (150 - 450) 12/09/2016 10:15 Syphilis IgG-[place] Negative (Negative - ) 12/09/2016 10:15 HIV 1/2 Ab and Ag Scrn-[place] Negative (Negative - ) 12/09/2016 10:15 Rubella IgG-[place] Equivocal 12/09/2016 10:15 Rubella IgG Ab Index-[place] 0.9 12/09/2016 10:15 Hep Bs Ag-[place] Negative (Negative - ) 12/09/2016 09:45 C trach Amp Src-[place] vagina 12/09/2016 09:45 C trach Amp RNA-[place] Negative (Negative - ) 12/09/2016 09:45 N gonor Amp DNA-[place] Negative (Negative - ) 12/09/2016 09:45 N gonor Amp Src-[place] vagina 12/09/2016 09:45 UA Color Yellow (Colorless [...] (*) Present (None Seen - ) Source: [facility] Document Id: [id number] Electronically signed by Conversion, [facility] Emergency Preparedness Coordinator [id number] at 02/02/2017 12:38 PM CDT Miscellaneous - Rabia Reaves R.N. - 12/11/2016 1:15 PM CDT Normal Results Letter December 11, 2016 PUNEET CLAYTON [address] [facility] [id number] Dear PUNEET CLAYTON, Your Pap was normal. Your next pap is due in 3 yrs. Please contact me if you have any questions. Result Name Current Result SUTURE GAUGER Cytology 12/09/2016 Sincerely, RABIA REAVES [address] [place] [address] Electronic Signature Electronically Signed By: RABIA REAVES CNP, RN On: December 11, 2016 This document has images extracted. Source: [facility] Loginza Document Id: [id number] Electronically signed by Conversion, [employer] Emergency Preparedness Coordinator [id number] at 02/02/2017 12:38 PM CDT Miscellaneous - Rabia Reaves, R.N. - 12/09/2016 10:04 AM CDT Ambulatory Patient Summary [facility] [address] [place], [address] [place], [place] [id number] Visit Information Name: FORREST PUNEET ALVARADO [facility] Number: [id number] Current Date: 12/09/2016 10:04:46 Physicians Attending Provider: RABIA REAVES CNP, drilling rig operator Provider: CATRACHO NAZARIO PA-C PUNEET CLAYTON [...] have one. Go to [email or web address] and click on Create Your Account. Then, follow the directions to complete the online form. Youll be asked for your [facility] number which you can find at the top of this document. Your Goals/Additional instructions: Source: [facility] POWERCHART Document Id: [id number] Leilani - Rabia Reaves R.N. - 12/09/2016 10:04 AM CDT Ambulatory Discharge Medication List [facility] [address], [address] [place], [place] [id number] Visit Information Name: PUNEET CLAYTON [facility] Number: [id number] Current Date: 12/09/2016 10:04:45 Attending Provider: RABIA REAVES CNP, drilling rig operator Provider: CATRACHO NAZARIO PA-C PUNEET CLAYTON [...] RN Signed On:09-DEC-2016 10:04:43 Additional Information: Source: [facility] POWERCHART Document Id: [id number] Leilani - Alison Monsivais L.P.N. - 12/09/2016 9:48 AM CDT Photographic Process Worker Documentation Photographic Process Worker Documentation Entered On: 12/09/2016 9:48 CDT Performed On: 12/09/2016 9:48 CDT by ALISON MONSIVAIS LPN Photographic Process Worker Documentation Exam/Procedure Performed : pelvic CD Photographic Process Worker Present : Yes CD Photographic Process Worker Name : ALISON Randall LPN - 12/09/2016 9:48 CDT Source: [facility] POWERCHART Document Id: [id number] documented in this encounter Plan of [...] procedure are in the results section. PATHOLOGY SUTURE GAUGER Routine 12/09/2016 9:37 AM Results for this CYTOLOGY CDT procedure are i n the results section. documented in this encounter Results CBC without Differential (12/09/2016 10:15 AM CDT) P athologist Signature Leukocytes 7.7 3.5 - 10.5 POWERCHART X109L Erythrocytes 4.88 3.90 - 5.03 POWERCHART M1000Y Hemoglobin 13.7 12.0 - 15.5 POWERCHART GDL [...] exposure to syp hilis. Test Performed by: [address] [address] Specimen (Source) Anatomical Collection Method Collection Time Re ceived Time Location / / Volume Laterality Blood 12/09/2016 10:15 AM CDT Rabia Reaves APRN, C.N.P. LAB BLOOD ADD-ON Performing Organization Address City/State/[facility] Code Phon e Number POWERCHART Rubella Antibodies, IgG (12/09/2016 10:15 AM CDT) Analysis Performed At Patho logist Time Signature HX Rubella Equivocal POWERCHART IgG-[place] Comment: Recommend follow-up testing in 10-14 day s if clinically indicated. REFERENCE VALUE------ Vaccinated: Positive (>=1.0 AI) Unvaccinated: Negative (<=0.7 AI) Rubella IgG Antibody Index 0.9 POW ERCHART Comment: Test Performed by: [facility] [address] [place] [address] Specimen (Source) Anatomical Collection Method Collection Time Re ceived Time Location / / Volume Laterality Blood 12/09/2016 10:15 AM CDT Rabia Reaves APRN, C.N.P. LAB MICROBIOLOGY - BLOOD ORD ERABLES Performing Organization Address [facility] Phon e Number POWERCHART HIV-1/-2 Ag and Ab Screen (12/09/2016 10:15 AM CDT) athologist Signature HIV-1/-2 Negative Negative POWERCHART Antibody Comment: Negative result does not rule out HIV in fection. If acute HIV infection is suspected in a hi gh-risk individual, submit plasma specimen for H IV-1 RNA quantification test (HIVDQ) and/or HIV-2 DNA/RNA test (FHV2Q). Test Performed by: [address] [address] Specimen (Source) Anatomical Collection Method Collection Time Re ceived Time Location / / Volume Laterality Blood 12/09/2016 10:15 AM CDT Rabia Reaves APRN, C.N.P. LAB MICROBIOLOGY - BLOOD ORD ERABLES Performing Organization Address City/[facility] Phon e Number POWERCHART Hepatitis B Surface Antigen (12/09/2016 10:15 AM CDT) P athologist Signature HBs Antigen, S Negative Negative POWERCHART Comment: Test Performed by: [facility] [address] [place] [id number] Specimen (Source) Anatomical Collection Method Collection Time [...] Laterality Blood 12/09/2016 10:15 AM CDT Rabia Apollo Jean Paul RIVERO C.N.P. LAB BLOOD ADD-ON Performing Organization Address City/[facility]/ZIP Code Phon e Number POWERCHART ABSC GEL (12/09/2016 10:15 AM CDT) [facility] gist Method Time Signature HX ABSC Gel Negative ABSC POWERCHART Specimen (Source) Anatomical Collection Method Collection Time Re ceived Time Location / / Volume Laterality 12/09/2016 10:15 AM CDT Rabia Apollo Jean Paul RIVERO C.N.P. LAB HISTORICAL ORDERS Performing Organization Address City/[facility]/ZIP Code Phon e Number POWERCHART ABO/Rh (12/09/2016 10:15 AM CDT) athologist Signature ABORh Interp A NEG POWERCHART Specimen (Source) Anatomical Collection Method Collection Time Re ceived Time Location / / Volume Laterality 12/09/2016 10:15 AM CDT Rabia Bustillos Kendal Reaves APRNNBrittaneyPBrittaney LAB BLOOD BANK TEST ORDERABL ES Performing Organization Address [facility]/ZIP Code Phon e Number POWERCHART HX-N gonor Amp DNA (12/09/2016 9:45 AM CDT) P athologist Signature HXN gonor Amp Negative POWERCHART DNA-[place] Specimen (Source) Anatomical Collection Method Collection Time Re ceived Time Location / / Volume Laterality 12/09/2016 9:45 AM CDT Narrative POWERCHART - 12/10/2016 4:54 PM CDT ADDITIONAL INFORMATION This report is intended for use in clini huma monitoring and management of patients. It is not in tended for use in medical-legal applications. Test Performed by: [facility] [address] [address] Kendal Erazo APRNN.Marcio LAB HISTORICAL ORDERS Performing Organization Address City/[facility]/ZIP Code Phon e Number POWERCHART HX-N gonor Amp Src (12/09/2016 9:45 AM CDT) P athologist Signature HXN gonor Amp vagina POWERCHART Src-[place] Specimen (Source) Anatomical Collection Method Collection Time Re ceived Time Location / / Volume Laterality 12/09/2016 9:45 AM CDT Kendal Erazo APRNN.P. LAB HISTORICAL ORDERS Performing Organization Address City/[facility] Code Phon e Number POWERCHART HX-C trach Amp RNA (12/09/2016 9:45 AM CDT) [facility] gist Method Time Signature Chlamydia [...] APRNN.P. LAB HISTORICAL ORDERS Performing Organization Address City/[facility]/ZIP Code Phon e Number POWERCHART HX-C trach Amp Src (12/09/2016 9:45 AM CDT) P athologist Signature HXC trach Amp vagina POWERCHART Src-[place] Specimen (Source) Anatomical Collection Method Collection Time Re ceived Time Location / / Volume Laterality 12/09/2016 9:45 AM CDT Rabia Reaves APRN C.N.P. LAB HISTORICAL ORDERS Performing Organization Address City/[facility]/ZIP Code Phon e Number POWERCHART (ABNORMAL) Bacterial Culture, Aerobic, Urine (12/09/2016 9:45 AM CDT) Patholo gist Method Time Signature Bacterial EC Susceptibl POWERCHART Culture, (POSITIVE) Aerobic, Urine HXPre URINE, CLEAN POWERCHART VOID HXPre Pending POWERCHART HXPre Pending-[facility] [address] [place] [phone] Comment: URINE, CLEAN VOID Pending Pending-[facility] [address] [place] [address] HXPre URINE, CLEAN VOID POWERCHART HXPre >[id number] COL/ML ESCHERICHIA COLI POWERCHART HXPre >[id number] COL/ML MULTIPLE ORGANISMS SUGGESTING PROBABLE POWERCHART CONTAMINATION HXPre PRELIMINARY, FINAL RESULT TO FOLLOW POWERCHART HXPre Pending-[facility] POWERCHART [address] [place] [phone] Comment: URINE, CLEAN VOID >[id number] COL/ML ESCHERICHIA COLI >258548 COL/ML MULTIPLE ORGANISMS SUGGES TING PROBABLE CONTAMINATION PRELIMINARY, FINAL RESULT TO FOLLOW Pending-[facility] [address] [place] [address] HXFinal EC POWERCHART Comment: URINE, CLEAN VOID >[id number] COL/ML ESCHERICHIA COLI >[id number] COL/ML MULTIPLE ORGANISMS SUGGES TING PROBABLE CONTAMINATION FINAL 12/12/2016-[facility] [address] [place] [address] Escherichia coli Specimen (Source) Anatomical Collection Method [...] Susceptibl: Francine ceptible NATALIE (MCG/ML) Rabia Reaves APRN, C.N.P. LAB MICROBIOLOGY - GENERAL O RDERABLES Performing Organization Address City/[facility] Phon e Number POWERCHART (ABNORMAL) Urinalysis, Complete, Includes Microscopic (12/09/2016 9:45 AM CDT) [facility] Method Time Signature HXUr Color Yellow Colorless [...] Leukocyte Esterase Large (A) Negative POWERCHART Specific Plain, POCT, U 1.021 ELANA RCHART Comment: Reference Range Specific Plain: 1.000-1.035 HXUR WBC. 4-10 None Seen HPF [...] C.N.P. LAB URINE ORDERABLES Performing Organization Address [facility] Phon e Number POWERCHART Pathology SUTURE GAUGER Cytology (12/09/2016 9:37 AM CDT) Specimen (Source) Anatomical Collection Method Collection Time Re ceived Time Location / / Volume Laterality 12/09/2016 9:37 AM CDT Narrative LUZ ELENA MAXWELL - 12/11/2016 11:20 AM CD T Pat: PUNEET CLAYTON ?([id number]) Age/Sex: 30 ??F ??Loc: ? -00 (RWN ) CoPath ??LIUDMILA: 12/09/16 09:37 ??REC: 16:00 ??PHYS: , Cytology ?ThinPrep cervical/endocerv Patient Name: PUNEET CLAYTON MR#: [id number] Submitting Physician: RABIA REAVES SUPERVISOR BONDING ??[id number] Specimen #[id number] Performing Lab: ??[address] [address] CLINICAL HISTORY: Last menstrual period: Status: Specimen [...] results have been experie nced. Rabia Reaves NEWS VIDEOTAPE EDITOR, C.N.P. LAB PAP COPATH ORDERABLES Performing Organization Address City/State/ZIP Code Phon e Number LUZ ELENA MAXWELL documented in this encounter Visit Diagnoses Not on filedocumented in this encounter Additional Health Concerns Assessment Noted Time PHQ-9 Depression Total Score: 11 12/13/2014 9:50 AM CD T documented as of this encounter
--- OUTSIDE RECORDS SUMMARY | 2022-07-17 08:10 | XMS_ITS | Encounter Summary ---
:1985 Author Organization [facility] Address [address] [place] [address] Care Team Providers Name Role Phone Unavailable Primary Care Provider Unavailable Encounter Details Date Type Department Care Team Description 10/29/2016 Hospital Encounter HX [facility] FAMILY ME Maureen Hooker, UNSTACKER, C.N.P., D. N.P. [address] [place] [address] (Wo rk) Social History Tobacco [...] How often do you attend jew or methodist More than 4 time s [...] Comments Blood Pressure 144/90 10/29/2016 9:32 AM SUPERVISOR FISHING Pulse 104 10/29/2016 9:32 AM SUPERVISOR FISHING Temperature - - Respiratory Rate 20 10/29/2016 9:28 AM SUPERVISOR FISHING Oxygen Saturation - - Inhaled Oxygen Concentration - - Weight 149 kg (329 lb 5.9 oz) 10/29/2016 9:28 AM SUPERVISOR FISHING Height 157 cm (5' 1.81) 10/29/2016 9:32 AM SUPERVISOR FISHING Body Mass Index 60.61 10/29/2016 9:28 AM SUPERVISOR FISHING documented in this encounter Medications at Time [...] Panel OV Est Pt Level 4 - 90387 - 25 min 2. Missed Menses test is POSITIVE today. She was advised to start a vitamin today and follow up with her OBGYN soon for her first ultrasound. Ordered: OV Est Pt Level 4 - 75890 - 25 min 3. Headache Migraine Tylenol for migraines. We will also trial a 2-week course of an antihistamine and flonase nasal spray for possible sinus headaches. Ordered: OV Est Pt Level 4 - 84546 - 25 min Sinusitis Allergic See #2. Ordered: fluticasone nasal, 2 spray(s), Nostrils(Both), Daily, allergies, # 16 gm, 4 Refill(s), Maintenance,Pharmacy: [facility] loratadine, 10 mg = 1 tab(s), PO, Daily, x 30 day(s), # 30 tab(s), 11 Refill(s), Acute, over the counter medication (Rx) OV Est Pt Level 4 - 45749 - 25 min Patient was instructed to [...] C.N.P., D.N.P On: 10/29/2016 12:26 PM Source: [facility] POWERCHART Document Id: [id number] RVISOR FISHING documented in this encounter Miscellaneous Notes Miscellaneous - Rylee Hooker APRN, C.N.P., Priti.N.P. - 10/29/2016 10:07 AM SUPERVISOR FISHING Ambulatory Patient Summary [address] [place] [phone] Visit Information Name: PUNEET CLAYTON [facility] Number: [id number] Current Date: 10/29/2016 10:07:20 Physicians [...] nasal (Flonase 50 mcg/inh nasal spray) 2 Hartwick(s), Nostrils(Both), once a day allergies New Routed to [address] [id number] furosemide (furosemide 20 mg oral tablet) 1 Tablet(s), Oral, once a day swelling New Routed to [facility] [address] [place] [address] ibuprofen (ibuprofen 400 mg oral tablet) 1 Tablet(s), Oral, every 4 hours as needed for Pain / FeverTake with food loratadine (Claritin 10 mg oral tablet) 1 Tablet(s), Oral, once a day x 30 day(s) New rizatriptan (Maxalt-ANIMATION CAMERA OPERATOR 10 mg oral tablet, disintegrating) 1 Tablet(s), Oral, as directed as needed for Migraine headache Take 1 tablet at onset of headache. Repeat after two hours if needed. New Routed to [address] [address] Stop Taking the Following Medications: SUMAtriptan (Imitrex [...] Appointments Date Time Location Provider 11/05/2016 12:45 [facility] ENT Jimmie CERON, Venu Gomez Attention: [...] if you dont have one. Go to [email or web address] and click on Create Your Account. Then, follow the directions to complete the online form. Youll be asked for your [facility] number which you can find at the top of this document. Your Goals/Additional instructions: Source: [facility] POWERCHART Document Id: [id number] RVISOR FISHING Miscellaneous - Rylee Hooker APRN C.N.P., D.N.P. - 10/29/2016 10:07 AM SUPERVISOR FISHING Ambulatory Discharge Medication List [address] [place] [id number] Visit Information Name: PUNEET CLAYTON [facility] Number: [id number] Current Date: 10/29/2016 10:07:19 Attending [...] nasal (Flonase 50 mcg/inh nasal spray) 2 Hartwick(s), Nostrils(Both), once a day allergies New Routed to [address] [address] furosemide (furosemide 20 mg oral tablet) 1 Tablet(s), Oral, once a day swelling New Routed to [address] [id number] ibuprofen (ibuprofen 400 mg oral tablet) 1 Tablet(s), Oral, every 4 hours as needed for Pain / FeverTake with food loratadine (Claritin 10 mg oral tablet) 1 Tablet(s), Oral, once a day x 30 day(s) New rizatriptan (Maxalt-ANIMATION CAMERA OPERATOR 10 mg oral tablet, disintegrating) 1 Tablet(s), Oral, as directed as needed for Migraine headache Take 1 tablet at onset of headache. Repeat after two hours if needed. New Routed to [address] [id number] Stop Taking the Following Medications: SUMAtriptan (Imitrex [...] D.N.P Signed On:29-OCT-2016 10:07:14 Additional Information: Source: [facility] Level 3 CommunicationsCHART Document Id: [id number] RVISOR FISHING Leilani - Craig Tolentino L.P.N. - 10/29/2016 9:32 AM CST Ambulatory Vitals Height Weight Ambulatory Vitals Height Weight Entered On: 10/29/2016 9:33 SUPERVISOR FISHING Performed On: 10/29/2016 9:32 SUPERVISOR FISHING by CRAIG TOLENTINO LPN Vitals/Ht/Wt Peripheral Pulse Rate : 104 /min (HI) Systolic Blood Pressure : 144 mmHg (HI) Diastolic Blood Pressure : 90 mmHg (HI) NIBP Mean : 108 mmHg BP Location : Left upper extremity Blood Pressure Cuff Size : Large Height : 157 cm(Converted to: 5 ft 2 inch(es), 62 inch(es)) CRAIG TOLENTINO LPN - 10/29/2016 9:32 SUPERVISOR FISHING Source: [facility] [employer] Document Id: [id number] SUPERVISOR FISHING!9 RVISOR FISHING Leilani - Craig Tolentino L.P.N. 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 : No CRAIG TOLENTINO LPN 10/29/2016 9:28 SUPERVISOR FISHING Subjective Pain Symptoms : Yes CRAIG TOLENTINO LPN 10/29/2016 9:28 SUPERVISOR FISHING Pain Scale Pain Scale Verbal 0-10 : Open CRAIG TOLENTINO LPN 10/29/2016 9:28 SUPERVISOR FISHING Pain Pain Assessment Grid Pain 1 Location : Head Intensity : 5 CRAIG TOLENTINO LPN 10/29/2016 9:28 SUPERVISOR FISHING Dependent Habits Exposure to Tobacco Smoke : Patient smokes Smoking Status : Current every day smoker Tobacco 2A : Yes Tobacco Use/Currently Using : Yes Tobacco Use/Last 30 Days : Yes Tobacco Use/Last 12 months : Yes Type : Cigarettes: Less than 20 per day Tobacco Use/Advised to Quit : Yes Alcohol Use : No CRAIG TOLENTINO LPN 10/29/2016 9:28 SUPERVISOR FISHING Caffeine Use Grid Caffeine Use : Current Type : Coffee, Soft drinks Frequency : Occasionally CRAIG TOLENTINO LPN - 10/29/2016 9:28 SUPERVISOR FISHING Recreational Drug Use Grid Drug Use : None CRAIG TOLENTINO LPN 10/29/2016 9:28 SUPERVISOR FISHING [facility] Document Id: [id number] SUPERVISOR FISHING!55 RVISOR FISHING documented in this encounter Plan of Treatment Not on filedocumented as of this encounter Procedures Procedure Name Priority Date/Time Associated Diagnosis Comme nts BASIC METABOLIC Routine 10/29/2016 10:16 AM Resul ts for this PANEL, S/P SUPERVISOR FISHING procedure are i n the results section. TEST, U Routine 10/29/2016 10:00 AM Res ults for this SUPERVISOR FISHING procedure are i n the results section. documented in this encounter Results BMP (Basic Metabolic Panel) (10/29/2016 10:16 AM SUPERVISOR FISHING) P athologist Signature Sodium, S 140 135 [...] POWERCHART MMOLL HXeGFR (MDRD) >60 >=60 POWERCHART [id number] eGFR >60 >=60 POWERCHART Black/ [id number] Syrian Glucose 125 70 - 139 POWERCHART MGDL Specimen (Source) Anatomical Collection Method Collection Time Re ceived Time Location / / Volume Laterality Blood 10/29/2016 10:16 AM SUPERVISOR FISHING Rylee Hooker APRN C.N.P., D.N.P. LAB BLOOD ADD-ON Performing Organization Address City/State/ZIP Code Phon e Number POWERCHART Test, Qualitative, Urine (10/29/2016 10:00 AM SUPERVISOR FISHING) Patholo gist Method Time Signature HXBeta-hCG Positive POWERCHART Qualitative Urine Specimen (Source) Anatomical Collection Method Collection Time Re ceived Time Location / / Volume Laterality Urine 10/29/2016 10:00 AM SUPERVISOR FISHING Rylee Hooker APRN, C.N.P., D.N.P. LAB URINE ORDERAB LES Performing Organization Address City/State/ZIP Code Phon e Number POWERCHART documented in this encounter Visit Diagnoses Not on filedocumented in this encounter Additional Health Concerns Assessment Noted Time PHQ-9 Depression Total Score: 11 12/13/2014 9:50 AM CD T documented as of this encounter
--- OUTSIDE RECORDS SUMMARY | 2022-07-17 08:10 | XMS_ITS | Encounter Summary ---
:1985 Author Organization [facility] Address [address] [place] [address] Care Team Providers Name Role Phone Unavailable Primary Care Provider Unavailable Encounter Details Date Type Department Care Team Description 11/05/2016 Hospital Encounter HX [facility] ENT Venu Nguyen M.D. [address] [place], [place] [address] (Wo rk) Social [...] How often do you attend gnosticism or restorationist More than 4 time s [...] Nguyen M.D. - 11/05/2016 12:13 PM CDT [id number] Ms. Cooley is a pleasant 30-year-old accompanied [...] than a pack per week. Works at [facility] [employer] [facility] [employer]. PHYSICAL EXAMINATION GENERAL: Appears well, no distress. [...] 61, I am not sure proceeding in [place] would even be an option. She will [...] Venu Nguyen M.D./robb cc: Blaire Thornton P.A.-C. [facility] in [address] [place] [address] Electronically Signed By: VENU NGUYEN MD On: 12/01/2016 01:38 PM Source: [facility] MHSDOLBEYNONRADSYS Document Id: [id number] documented in this encounter Miscellaneous Notes Miscellaneous - Madhavi Addison R.N. - 11/05/2016 12:26 PM CDT Adult Safety Associate Intake/History Adult Safety Associate Intake/History Entered On: 11/05/2016 12:30 CDT Performed On: 11/05/2016 12:26 CDT by MADHAVI ADDISON manager protein Chief Complaint : chronic sore throat, large [...] 11/05/2016 12:26 CDT General Info Languages : Greek Is Patient Female and 13-50 no hysterectomy [...] ADDISON RN - 11/05/2016 12:26 CDT [facility] Document Id: [id number] CDT!44 documented in this encounter Plan of Treatment Not on filedocumented as of this encounter Procedures Procedure Name Priority Date/Time Associated Diagnosis Comme nts RAPID STREP A Routine 11/16/2016 10:12 AM Results for this SCREEN CDT procedure are i n the results section. documented in this encounter Results Rapid Strep A Screen (11/16/2016 10:12 AM CDT) [facility] Method Time Signature HXStrep A POWERCHART [...]
--- OUTSIDE RECORDS SUMMARY | 2022-07-17 08:10 | XMS_ITS | Encounter Summary ---
:1985 Author Organization [facility] Address [address] [place] [address] Care Team Providers Name Role Phone Unavailable Primary Care Provider Unavailable Encounter Details Date Type Department Care Team Description 04/22/2015 Hospital Encounter [facility] NEUROLOGY Nicci Gutiérrez D.O. [address] [place] [address] (Wo rk) Social History Tobacco [...] How often do you attend jainism or yazdanism More than 4 time s [...] CHIEF COMPLAINT/REASON FOR VISIT consult Denys in [place]/migraine headaches daily REFERRAL SOURCE Trev Mcfarlane MD [...] year old son. 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 Rarely drinks [...] tendon reflexes (with reinforcement) Babinski: Absent Coordination: Cvufmh-bb-pupa is normal. AMRs are normal. Sensation: Vibratory [...] scheduled to have a sleep study in [place] to evaluate whether this may be a [...] # 60 tab(s), 5 Refill(s), Maintenance, Pharmacy: [facility] [id number] Orders: SUMAtriptan, 100 mg = 1 tab(s), PO, As Directed, PRN Migraine headache, Take 1 tablet at onset of headache. Repeat after two hours if needed., # 18 tab(s), 5 Refill(s), Maintenance, Pharmacy: [facility] [id number] FOOTNOTES [1]MR Brain w/ + w/o contrast; CATHI MONTIEL 03/20/2015 10:30 CDT Electronically Signed By: MARIAELENA GUTIÉRREZ DO On: 04/22/2015 12:01 PM Source: [facility] [employer] Document Id: [id number] documented in this encounter Nursing Notes Mariaelena Gutiérrez D.O. - 04/22/2015 11:30 AM CDT Ambulatory Patient Education The following Patient Education Materials have been given to the patient: Patient Education Materials: Source: [facility] [employer] Document Id: [id number] documented in this encounter Miscellaneous Notes Miscellaneous - Mariaelena Gutiérrez D.O. - 04/22/2015 11:30 AM CDT Ambulatory Patient Summary [facility] [address], [place] [place], [place] [phone] Visit Information Name: PUNEET FRIED [facility] Number: [id number] Current Date: 04/22/2015 11:30:34 Physicians Attending Provider: MARIAELENA GUTIÉRREZ DO Primary Care Provider: ALISON LOREDO PA-C FARIHA PUNEET ALVARADO has been given the following list of follow-up instructions, medication list, and patient education materials: Follow-up Instructions With: Address: When: MARIAELENA GUTIÉRREZ [address] [place] [address] [place] [address] [employer] (1) In 3 months 07/22/2015 Comments: Do [...] if needed. This is a CHANGE [address]to [place] [address] [place] [id number] topiramate (topiramate 25 mg oral tablet) 2 Tablet(s), Oral, once a day 1 tab at bedtime x 3 days, then 1 2x day x 3 days, then 1 in AM and 2 HS x 3 days, then 2 tabs 2x day New Routed to [place] [address] [place] [id number] Stop Taking [...] if you dont have one. Go to [email or web address] and click on Create Your Account. Then, follow the directions to complete the online form. Youll be asked for your [facility] number which you can find at the top of this document. Your Goals/Additional instructions: Source: [facility] POWERCHART Document Id: [id number] Miscellaneous - Mariaelena Gutiérrez D.O. - 04/22/2015 11:30 AM CDT Ambulatory Discharge Medication List [facility] [address], [address] [place], [place] [phone] Visit Information Name: PUNEET FRIED [facility] Number: [id number] Visit Date: 04/22/2015 11:30:32 Attending [...] if needed. This is a CHANGE [address] [place] [address] [place] [id number] topiramate (topiramate 25 mg oral tablet) 2 Tablet(s), Oral, once a day 1 tab at bedtime x 3 days, then 1 2x day x 3 days, then 1 in AM and 2 HS x 3 days, then 2 tabs 2x day New Routed to [place] [address] [place] [id number] Stop Taking the Following Medications: EPINEPHrine (EpiPen [...] DO Signed On:22-APR-2015 11:29:21 Additional Information: Source: [facility] POWERCHART Document Id: [id number] Miscellaneous - Sima Mccormick, LiorPBrittaneyN. 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 Production Intake/History Entered On: 04/22/2015 10:47 CDT Performed On: 04/22/2015 10:39 CDT by SIMA MCCORMICK LPN Intake Chief Complaint : consult Lagalwar in [place]/migraine headaches daily Temperature Core : 35.8 DegC(Converted [...] Preferred Communication Mode : Verbal Languages : Malawian Is Patient Female and 13-50 no hysterectomy [...] MCCORMICK LPN - 04/22/2015 10:39 CDT Source: [facility] [employer] Document Id: [id number] CDT!54 documented in this encounter Plan of Treatment Not on filedocumented as of this encounter Visit Diagnoses Not on filedocumented in this encounter Additional Health Concerns Assessment Noted Time PHQ-9 Depression Total Score: 11 12/13/2014 9:50 AM CD T documented as of this encounter
--- OUTSIDE RECORDS SUMMARY | 2022-07-17 08:10 | XMS_ITS | Encounter Summary ---
:1985 Author Organization [facility] Address [address] [place] [address] Care Team Providers Name Role Phone Unavailable Primary Care Provider Unavailable Encounter Details Date Type Department Care Team Description 01/15/2016 Hospital Encounter [facility] Kyel Colmenares M .D., M.P.H. [address] [place], [place] [address] (Wo rk) Social History [...] How often do you attend synagogue or zoroastrian More than 4 time s [...] BEAN LPN - 01/15/2016 10:12 CDT Source: [facility] POWERCHART Document Id: [id number] CDT!3 documented in this encounter Plan of Treatment Not on filedocumented as of this encounter Visit Diagnoses Not on filedocumented in this encounter Additional Health Concerns Assessment Noted Time PHQ-9 Depression Total Score: 11 12/13/2014 9:50 AM CD T documented as of this encounter
--- OUTSIDE RECORDS SUMMARY | 2022-07-17 08:10 | XMS_ITS | Encounter Summary ---
:1985 Author Organization [facility] Address [address] [place] [address] Care Team Providers Name Role Phone Unavailable Primary Care Provider Unavailable Encounter Details Date Type Department Care Team Description 11/24/2016 Hospital Encounter [facility] Marisol Lopez APRN, C.N.P. [address] [place] [address] (Wo rk) Social History Tobacco [...] How often do you attend anabaptism or adventist More than 4 time s [...] Coding Summary-Paper Based CODING DATE: 11/27/2016 FINAL [facility] STATUS: * Discharged to Home or Self Care [facility]: REASON FOR VISIT DX: [...] ROLDAN Date Saved: 11/27/2016 10:20 am Source: [employer] Document Id: [id number] Miscellaneous - Leonora Villaseñor RBrittaneyN. - 11/24/2016 12:58 PM CDT From: LEONORA VILLASEÑOR CNP, RN Sent: 11/24/2016 12:58:55 CDT patient notified of ultrasound results. she will schedule new ob visit as soon as she is able. Source: [employer] Document Id: [id number] Electronically signed by [facility], [facility] Wheel Cutter [id number] at 02/02/2017 6:27 AM CDT documented in this encounter Plan of Treatment Not on filedocumented as of this encounter Visit Diagnoses Not on filedocumented in this encounter Additional Health Concerns Assessment Noted Time PHQ-9 Depression Total Score: 11 12/13/2014 9:50 AM CD T documented as of this encounter
--- OUTSIDE RECORDS SUMMARY | 2022-07-17 08:10 | XMS_ITS | Encounter Summary ---
:1985 [address] [facility] Address [address] [place] [address] Care Team Providers Name Role Phone Unavailable Primary Care Provider Unavailable Encounter Details Date Type Department Care Team Description 11/16/2016 Hospital Encounter HX [facility] ME Keith Nguyen M.D. [address] [place] [address] (Wo rk) Social History [...] How often do you attend restorationist or latter day More than 4 time [...] TERRY CMA ( Ears/Nose/Throat Nurse) To: MADHAVI ADDIOSN RN; Sent: 11/23/2016 15:29:58 CDT Show up: [...] Name MBO Review Rapid Strep A Source: [facility] [employer] Document Id: [id number] documented in this encounter Plan of Treatment [...] Strep A Screen (11/16/2016 9:30 AM CDT) [facility] Method Time Signature HXRapid Strep POWERCHART Confirmation HXPre Pending POWERCHART HXFinal NEG POWERCHART HXFinal [facility] POWERCHART [facility] [id number] Specimen Anatomical Collection Method Collection Time Receive d Time (Source) Location / / Volume Laterality Throat 11/16/2016 9:30 AM 7 9:30 CDT AM CDT Keith Nguyen M.D. LAB MICROBIOLOGY - GENERAL O RDERABLES Performing Organization Address City/State/ZIP Code Phon e Number POWERCHART Rapid Strep A Screen (11/16/2016 9:30 AM CDT) [facility] Method Time Signature HXStrep A [...]
--- OUTSIDE RECORDS SUMMARY | 2022-07-17 08:10 | XMS_ITS | Encounter Summary ---
:1985 Author Organization [facility] Address [address] [place] [address] Care Team Providers Name Role Phone Unavailable Primary Care Provider Unavailable Encounter Details Date Type Department Care Team Description 07/19/2015 Hospital Encounter HX [facility] Luisa Stevens M .D. Social History Tobacco [...] Comments Blood Pressure 149/69 07/19/2015 9:15 PM BOARD LINER OPERATOR Pulse 113 07/19/2015 9:15 PM BOARD LINER OPERATOR Temperature - - Respiratory Rate - - Oxygen Saturation - - Inhaled Oxygen Concentration - - Weight - - Height - - Body Mass Index - - documented in this encounter Discharge Summaries Rylee Romero R.N. - 07/19/2015 10:17 PM CST ED Discharge Instructions [place] [id number] [address] [address] Name: PUNEET CLAYTON Date of : 1985 12:00 AM Visit Date: 07/19/2015 9:06 PM [facility] Number: [id number] Address: [address] [place] [phone] Primary Care Provider: ALISON LOREDO PA-C IMPORTANT: [facility] in [place] would like to thank you for allowing us to assist you with your healthcare needs. The following includes patient education materials and informationregarding your injury/illness. Diagnosis: Strep Throat Pharyngitis Follow-Up Instructions: With: Address: When: ALISON LOREDO [address] [place] [id number] [facility] () Within As Needed Comments: Call [...] ?? Muffled voice ?? New rash ?? [phone] [facility], [address] [place] [address]. All rights reserved. This information is not [...] dont have one. Go to [email or web address] and click on Create Your Account. Then, follow the directions to complete the online form. Youll be asked for your [facility] number which you can find [...] document has images extracted. Please consider using [employer] for all your patient education needs. Source: [employer] Document Id: [id number] D LINER OPERATOR Rylee Romero R.N. - 07/19/2015 10:17 PM CST ED Depart Summary [facility] Emergency Department Clinical Discharge Summary PERSON INFORMATION Name PUNEET CLAYTON Age 29 Years 1985 12:00 AM Sex Female Language Kosovan PCP ALISON LOREDO PA-C [id number] Reason [facility] - Sore Throat; Poss strep Specialty Enc Type Emergency Med Service Emergency Medicine Referred by Track Group [facility] ED Discharge 07/19/2015 10:17 PM Tracking Id [id number] Checkout 07/19/2015 10:17 PM Checkin 07/19/2015 9:06 PM Acuity 5 -Non Urgent Dispo Type * Discharged to Home or Self Care Arrival 07/19/2015 9:06 PM Reg Status Complete LOS 000 01:11 Address: [address] [place] [phone] Comment: PROVIDER INFORMATION Provider Role Provider Contact Time RYLEE ROMERO CONSTRUCTION AND MAINTENANCE INSPECTOR Nurse 07/19/15 21:08 LUISA LOPEZ MD ED Provider 07/19/15 21:08 DIAGNOSIS Strep Throat Pharyngitis Comment: PATIENT EDUCATION INFORMATION Instructions: PHARYNGITIS, Strep (Confirmed) Follow up: With: Address: When: ALISON LOREDO [address] [place] [address] [phone] [employer] (7) Within As Needed Comments: Call for follow up appointment Source: [facility] [employer] Document Id: [id number] D LINER OPERATOR documented in this encounter ED Notes Rylee Romero RRoverto - 07/19/2015 10:14 PM CST ED Disposition Summary ED Disposition Summary Entered On: 07/19/2015 22:14 BOARD LINER OPERATOR Performed On: 07/19/2015 22:14 BOARD LINER OPERATOR by RYLEE ROMERO CONSTRUCTION AND MAINTENANCE INSPECTOR Disposition Summary Accompanied By : Spouse Printed Discharge Instructions Given to Patient : Yes RYLEE ROMERO RN - 07/19/2015 22:14 BOARD LINER OPERATOR Source: [facility] [employer] Document Id: [id number] BOARD LINER OPERATOR!4 D LINER OPERATOR Rylee Romero R.N. - 07/19/2015 10:14 PM CST ED Pain Assessment ED Pain Assessment Entered On: 07/19/2015 22:14 BOARD LINER OPERATOR Performed On: 07/19/2015 22:14 BOARD LINER OPERATOR by RYLEE ROMERO RN Pain Assessment Pain Symptoms : Yes RYLEE ROMERO RN - 07/19/2015 22:14 BOARD LINER OPERATOR Source: [facility] POWERCHART Document Id: [id number] BOARD LINER OPERATOR!3 D LINER OPERATOR Rylee Romero R.N. - 07/19/2015 9:14 PM CST ED Primary Assessment Document Has Been Updated ED Primary Assessment Entered On: 07/19/2015 21:15 BOARD LINER OPERATOR Performed On: 07/19/2015 21:14 BOARD LINER OPERATOR by RYLEE ROMERO RN Reason For Visit (As Of: 07/19/2015 21:20:00 BOARD LINER OPERATOR) Problems(Active) Abuse Tobacco Smoking NOS (ICD-9-CM :305.1 [...] Medical ; Code: 346.90 ; Contributor System: [employer] ; Last Updated: 12/12/2014 9:11 CDT ; Life Cycle Status: Active; Responsible Provider: RABIA NATHAN MD; Vocabulary: ICD-9-CM (ICD-9-CM :V22.2 ) Name of Problem: ; Onset Date: 2007 ; Recorder: GLEN ACOTSA; Confirmation: Confirmed ; Classification: Medical ; Code: V22.2 ; Contributor System: [employer] ; Last Updated: 01/21/2012 9:41 CDT ; [...] PNED ; Probability: 0 ; Diagnosis Code: [id number] Triage Chief Complaint Description : see note Mode of Arrival ED : Private vehicle Track : Medical Languages : Kosovan Treatments Prior to Arrival : Acetaminophen Are you ? : No Is Patient Female and 13-50 no hysterectomy : Yes Status : Patient denies RYLEE ROMERO RN - 07/19/2015 21:14 BOARD LINER OPERATOR Pain Assessment Pain Symptoms : Yes RYLEE ROMERO RN - 07/19/2015 21:14 BOARD LINER OPERATOR Respiratory Airway : Patent Respirations : Unlabored Respiratory Pattern : Regular RYLEE ROMERO RN - 07/19/2015 21:14 BOARD LINER OPERATOR Cardiovascular Heart Rhythm : Regular Skin Color : Normal for ethnicity Skin Description : Dry Skin Temperature : Warm RYLEE ROMERO RN - 07/19/2015 21:14 BOARD LINER OPERATOR Neurological Last Well Time Known : Yes Last Known Well Time : 07/19/2015 8:00 BOARD LINER OPERATOR Level of Consciousness : Alert Orientation : Oriented x 3 Characteristics of Speech : Appropriate for age RYLEE ROMERO RN - 07/19/2015 21:14 BOARD LINER OPERATOR ED Psychosocial Affect/Behavior : Calm Domestic Abuse Concerns : None Behavioral Health Screen/Safety Assmt : No RYLEE ROMERO RN - 07/19/2015 21:14 BOARD LINER OPERATOR Gastrointestinal Nutrition ED : Adequate RYLEE ROMERO RN - 07/19/2015 21:14 BOARD LINER OPERATOR Musculoskeletal Fall Prevention Education Provided : NA RYLEE ROMERO RN - 07/19/2015 21:14 BOARD LINER OPERATOR EENT Mouth and Throat Symptoms : Swollen tonsils RYLEE ROMERO RN - 07/19/2015 21:19 BOARD LINER OPERATOR Social Habits Tobacco Use/Currently Using : Yes Exposure to Tobacco Smoke : Patient smokes Smoking Status : Current every day smoker RYLEE ROMERO RN - 07/19/2015 21:14 BOARD LINER OPERATOR Tobacco Use Grid Type : Cigarettes Cigarette Use Packs/Day : 0.5 RYLEE ROMERO RN - 07/19/2015 21:14 BOARD LINER OPERATOR Alcohol Use Grid Alcohol Use : Yes RYLEE ROMERO RN - 07/19/2015 21:14 BOARD LINER OPERATOR Recreational Drug Use Grid Drug Use : None RYLEE ROMERO RN - 07/19/2015 21:14 BOARD LINER OPERATOR Source: [employer] Document Id: [id number] BOARD LINER OPERATOR!3 D LINER OPERATOR Luisa Lopez M.D. - 07/19/2015 9:14 PM CST Throat Pain *ED Patient: PUNEET FRIED Age: 29 years Sex: Female : 1985 Author: LUISA LOPEZ MD Attachments: None Associated Diagnosis: Strep Throat Pharyngitis Basic Information Additional information: Chief Complaint from Nursing Triage Note : Chief Complaint Description 07/19/2015 21:12 BOARD LINER OPERATOR Chief Complaint Description 29 year old female [...] Headache Abuse Tobacco Smoking NOS (305.1) Resolved ([id number]): Resolved on 01/03/2008 at 22 years.. Surgical history: Pap smear ([id number]) on 01/25/2013 at 27 Years. Pap smear ([id number]) on 01/25/2013 at 27 Years.. Family history: [...] review:Lab results : Lab View 07/19/2015 21:45 BOARD LINER OPERATOR Strep A Screen Rapid POS . Reexamination/ [...] LOPEZ MD On: 07/19/2015 10:06 PM Source: [facility] POWERCHART Document Id: [id number]} D LINER OPERATOR Rylee Romero R.N. - 07/19/2015 9:12 PM CST ED Triage Assessment Document Has Been Updated ED Triage Assessment Entered On: 07/19/2015 21:14 BOARD LINER OPERATOR Performed On: 07/19/2015 21:12 BOARD LINER OPERATOR by RYLEE ROMERO RN Reason For Visit (As Of: 07/19/2015 21:14:31 BOARD LINER OPERATOR) Problems(Active) Abuse Tobacco Smoking NOS (ICD-9-CM :305.1 ) Name of Problem: Abuse Tobacco Smoking NOS ; Recorder: MAURICE ADDISON; Confirmation: Confirmed ; Classification: Medical ; Code: 305.1 ; Contributor System: [employer] ; Last Updated: 12/12/2014 9:21 CDT ; [...] Medical ; Code: V22.2 ; Contributor System: [employer] ; Last Updated: 01/21/2012 9:41 CDT ; [...] PNED ; Probability: 0 ; Diagnosis Code: [id number] Triage Chief Complaint Description : 29 year old female admits with complaints of sore throat a nd fever Mode of Arrival ED : Private vehicle Track : Medical Languages : Kosovan Treatments Prior to Arrival : Acetaminophen Are you ? : No Is Patient Female and 13-50 no hysterectomy : Yes Status : Patient denies RYLEE ROMERO RN - 07/19/2015 21:12 BOARD LINER OPERATOR Pain Assessment Pain Symptoms : Yes RYLEE ROMERO RN - 07/19/2015 21:12 BOARD LINER OPERATOR Pain Scale Pain Scale Verbal 0-10 : Open RYLEE ROMERO RN - 07/19/2015 21:12 BOARD LINER OPERATOR Pain Pain Assessment Grid Pain 1 Location : Throat Intensity : 5 RYLEE ROMERO RN - 07/19/2015 21:12 BOARD LINER OPERATOR ED Physician Notification Time ED Physician Notification Time : 07/19/2015 21:14 BOARD LINER OPERATOR RYLEE ROMERO RN - 07/19/2015 21:12 BOARD LINER OPERATOR JAYDEN JAYDEN Level 1 : No JAYDEN Level 2 : No JAYDEN Level 3 : Many RYLEE ROMERO RN - 07/19/2015 21:12 BOARD LINER OPERATOR DCP GENERIC CODE Tracking Acuity : 5 -Non Urgent Tracking Group : [facility] ED RYLEE ROMERO RN - 07/19/2015 21:12 BOARD LINER OPERATOR Allergy (As Of: 07/19/2015 21:14:31 BOARD LINER OPERATOR) Allergies (Active) penicillins Estimated Onset Date: Unspecified ; Created By: GLEN ACOSTA; Reaction Status: Active ;Category: Drug ; Substance: penicillins ; Type: Allergy ; Updated By: GLEN ACOSTA; Reviewed Date: 04/22/2015 10:36 CDT Immunizations Influenza : None RYLEE ROMERO RN - 07/19/2015 21:12 BOARD LINER OPERATOR Source: [employer] Document Id: [id number] BOARD LINER OPERATOR!30 D LINER OPERATOR documented in this encounter Miscellaneous Notes Miscellaneous - Conversion, Historical Provider Ser - 07/19/2015 10:17 PM BOARD LINER OPERATOR Coding Summary-Paper Based CODING DATE: 07/29/2015 FINAL CA [facility] STATUS: * Discharged [...] PAGAN Date Saved: 07/29/2015 01:50 pm Source: [employer] Document Id: [id number] Miscellaneous - Rylee Romero RMarcos. - 07/19/2015 10:14 PM CST Valuables/Belongings Valuables/Belongings Entered On: 07/19/2015 22:14 BOARD LINER OPERATOR Performed On: 07/19/2015 22:14 BOARD LINER OPERATOR by RYLEE ROMERO RN Valuables/Belongings Belongings Sent Home With : Allsent with patient RYLEE ROMERO RN - 07/19/2015 22:14 BOARD LINER OPERATOR Source: [employer] Document Id: [id number] BOARD LINER OPERATOR!3 D LINER OPERATOR Miscellaneous - Rylee Romero R.N. - 07/19/2015 9:06 PM CST Facility Charge Ticket 2.0 11.0 DX Facility Charge Ticket 2.0 11.0 DX Entered On: 07/19/2015 22:14 BOARD LINER OPERATOR Performed On: 07/19/2015 21:06 BOARD LINER OPERATOR by RYLEE ROMERO RN Facility Charge Ticket [...] Nursing Notes ED Primary Assessment,07/19/15 21:14,RYLEE ROMERO CONSTRUCTION AND MAINTENANCE INSPECTOR Primary Assessment,07/19/15 21:14,RYLEE ROMERO CONSTRUCTION AND MAINTENANCE INSPECTOR Pain Assessment,07/19/15 22:14,RYLEE ROMERO RN Lynx Nursing Assessment : Triage and 1-2 nursing assessments Lynx Disposition : Discharge Disposition RTF : discharge [place]x Total Points with Diagnosis Control : 5 Lynx Visit Level : 22089 Level 3 Treatments Prior to Arrival : Acetaminophen RYLEE ROMERO RN - 07/19/2015 22:14 BOARD LINER OPERATOR Source: [facility] POWERCHART Document Id: [id number] BOARD LINER OPERATOR!19 D LINER OPERATOR documented in this encounter Plan of Treatment Not on filedocumented as of this encounter Procedures Procedure Name Priority Date/Time Associated Diagnosis Comme nts RAPID STREP A Routine 07/19/2015 9:45 PM Results for this SCREEN BOARD LINER OPERATOR procedure are i n the results section. documented in this encounter Results (ABNORMAL) Rapid Strep A Screen (07/19/2015 9:45 PM BOARD LINER OPERATOR) [facility] gist Method Time Signature HXStrep A (POSITIVE) POWERCHART Screen Rapid HXFinal Positive for POWERCHART Group A Strep by rapid screen. Specimen (Source) Anatomical Collection Method Collection Time Re ceived Time Location / / Volume Laterality Throat 07/19/2015 9:45 PM BOARD LINER OPERATOR Luisa Lopez M.D. LAB MICROBIOLOGY - GENERAL O RDERABLES Performing Organization Address City/State/ZIP Code Phon e Number POWERCHART documented in this encounter Visit Diagnoses Not on filedocumented in this encounter Additional Health Concerns Assessment Noted Time PHQ-9 Depression Total Score: 11 12/13/2014 9:50 AM CD T documented as of this encounter
--- OUTSIDE RECORDS SUMMARY | 2022-07-17 08:10 | XMS_ITS | Encounter Summary ---
:1985 Author Organization [facility] Address [address] [place] [address] Care Team Providers Name Role Phone Unavailable Primary Care Provider Unavailable Encounter Details Date Type Department Care Team Description 01/06/2016 Hospital Encounter HX [facility] ME Ashwin Bundy, P.A.-C. [address] [place], [place] [phone] (Wo rk) Social History Tobacco Use Types [...] documented in this encounter Progress Notes Catracho Nazario P.A.-C. - 01/06/2016 11:52 AM CDT Clinic [...] Ordered: OV Est Pt Level 4 - 43362 - 25 min Total time spent 25 minutes, 15 minutes counseling the patient regarding sun care for skin (no tanning beds, cover when in the sun and wear sun screen) and performing the above procedure. Electronically Signed By: CATRACHO NAZARIO P.A.-C. On: 01/08/2016 07:59 AM Source: [employer] POWERCHART Document Id: [id number] documented in this encounter Miscellaneous Notes Miscellaneous [...] Patient ( ) ( ) Call for Assistant Professor Of Criminal Justice ( ) Follow up on Results ( ) Other: PROVIDER: ( ) Call Physician ( ) Call Pharmacist ( ) Call Lab ( ) Other: Special Instructions: Comments: Source: [facility] POWERCHART Document Id: [id number] Electronically signed by Roland, [facility] Machine Feeder Raw Stock [id number] at 01/16/2017 3:01 PM CDT Miscellaneous - Catracho Nazario P.A.-C. - 01/09/2016 9:46 AM CDT Results Notification Document Contains Addenda Addendum by HENNY PERRY LPN on January 09, 2016 10:09:56 CDT pt notified From: CATRACHO NAZARIO P.A.-C. To: MCKENZIE Family Medicine Nurse Panda; [...] Name Value 01/06/2016 09:25 Surg IV Accn-[place] [id number] 01/06/2016 09:25 Surg IV Addr-[place] See Comment 01/06/2016 09:25 Surg IV FnlDiag-[place] See Comment 01/06/2016 09:25 Surg IV Ref-[place] See Comment 01/06/2016 09:25 Surg IV SgnPath-[place] See Comment 01/06/2016 09:25 Surg IV Ts Desc-[place] See Comment [facility] Document Id: [id number] Electronically signed by Roland [facility]guill[facility] Workman [id number] at 01/16/2017 3:01 PM CDT Leilani - [...] CARDONA LPN - 01/06/2016 8:32 CDT [facility] Document Id: [id number] CDT!8 Leilani - Jude Cardona L.P.NBrittaney - 01/06/2016 8:25 AM CDT Adult Industrial Relations Commissioner Intake/History Adult Industrial Relations Commissioner Intake/History Entered On: 01/06/2016 8:29 CDT Performed [...] 01/06/2016 8:25 CDT General Info Languages : Belgian Is Patient Female and 13-50 no hysterectomy : Yes Status : Patient denies Are you ? : No JUDE CARDONA DIRECTOR SOCIAL SERVICE - 01/06/2016 8:25 CDT Subjective Pain Symptoms : No JUDE CARDONA [facility] - 01/06/2016 8:25 CDT Dependent Habits Exposure [...] JUDE CARDONA LPN 01/06/2016 8:25 CDT Source: [facility] [employer]am[employer]CHART Document Id: [id number] CDT!40 documented in this encounter Plan of Treatment Not on filedocumented as of this encounter Procedures Procedure Name Priority Date/Time Associated Diagnosis Comme [facility] SURGICAL PATHOLOGY Routine 01/06/2016 9:25 AM Res ults for this CDT procedure are i n the results section. documented in this encounter Results Pathology Anatpath Wet Tissue (01/06/2016 9:25 AM CDT) [facility] Method Time Signature HXSurg IV [id number] POWERCHART [facility] HXSurg IV See Comment POWERCHART Ref-[place]inle Comment: RESULT: Eusebio Nathan HXSurg IV [facility] See Comment POWERCHA RT Comment: [facility]-[place] [address] [place] [address] SLIDE DISPOSITION: HXSurg IV [facility] See Comment POWER CHART Comment: [id number] A1 A. Received in formalin labeled with the patient's name and and lab eled as right nape of neck is a 0.2 x 0.1 cm ovoid skin punch biops y excised to a depth of 0.3 cm. ??No identifiable lesion is noted on the skin surface. ??The specimen is submitted in toto in pallavi e A1. Part A: ??right nape of neck 1 right nape of neck XRSR Path [facility] See [facility] POWER CHART Comment: A. ??Skin, right neck, punch biopsy: ??L jacqueline irene. Participated in interpretation: Dr. Blane Shepherd. Pager: [phone]. As the signing pathologist, I verify fidelina t I have examined all relevant slides/materials for the specim en(s) and rendered or confirmed the diagnosis. HXSurg IV [facility] See Comment POWER CHART Comment: RESULT: 01/08/2016 15:55 Interpreted by: Lucas Lucia M.D. Report electronically signed by Lucas grey M.D. Transcribed by: amelia 01/08/2016 15:17:34 Test Performed by: [address] [address] Certified Master Locksmith: Rubio Marshall II, M.D., Ph.D. Specimen (Source) [...]
--- OUTSIDE RECORDS SUMMARY | 2022-07-17 08:10 | XMS_ITS | Encounter Summary ---
:1985 Author Organization [facility] Address [address] [place] [address] Care Team Providers Name Role Phone Unavailable Primary Care Provider Unavailable Encounter Details Date Type Department Care Team Description 03/22/2015 Hospital Encounter HX [facility] Barbra Vora M.D. [address] [place] [phone] (Wo rk) Social History Tobacco Use [...] How often do you attend yarsani or advent More than 4 time s [...] restricted diffusion or infarct. Marcio Briceno MD. [phone] 20-Mar-2015 10:52 [1] IMPRESSION/REPORT/PLAN 1. Cyst Brain [...] Ordered: OV Est Pt Level 2 - 55595 - 10 min FOOTNOTES [1]MR Brain w/ + w/o contrast; CATHI MONTIEL 03/20/2015 10:30 CDT Electronically Signed By: LEONORA NATHAN MD On: 03/22/2015 10:41 AM Source: [facility] POWERCHART Document Id: [id number] documented in this encounter Miscellaneous Notes Miscellaneous [...] None Behavioral Health Screen/Safety Assmt : No Yazidism Preference : No qualifying data available. FRANCESCA LOZADA LPN - 03/22/2015 8:03 CDT Advance Directive Advanced Directives : No Advance Directive Additional Information : No FRANCESCA LOZADA LPN - 03/22/2015 8:03 CDT Educ Needs Learning Style Preference Adult Grid Patient : None Family : None FRANCESCA LOZADA LPN - 03/22/2015 8:03 CDT Source: [facility] POWERCHART Document Id: [id number] CDT!35 Miscellaneous - Francesca Lozada L.P.N. - 03/22/2015 7:59 AM CDT Adult Construction Or Leak Gang Laborer Intake/History Adult Construction Or Leak Gang Laborer Intake/History Entered On: 03/22/2015 8:02 CDT Performed [...] 2.45 Body Mass Index : 55.99 kg/m2 FRNACESCA LOZADA LPN - 03/22/2015 7:59 CDT General Info Languages : Cuban Is [...] Cigarette Use Packs/Day : 0.5 FRANCESCA LOZADA [facility] - 03/22/2015 7:59 CDT Alcohol Use : No FRANCESCA LOZADA [facility] - 03/22/2015 7:59 CDT Caffeine Use Grid Caffeine Use : Current Type : Coffee, Soft drinks Frequency : Occasionally FRANCESCA LOZADA [facility] - 03/22/2015 7:59 CDT Recreational Drug Use Grid Drug Use : None FRANCESCA LOZADA [facility] - 03/22/2015 7:59 CDT Source: [employer] Document Id: [id number] CDT!51 documented in this encounter Plan of Treatment Not on filedocumented as of this encounter Visit Diagnoses Not on filedocumented in this encounter Additional Health Concerns Assessment Noted Time PHQ-9 Depression Total Score: 11 12/13/2014 9:50 AM CD T documented as of this encounter
--- OUTSIDE RECORDS SUMMARY | 2022-07-17 08:10 | XMS_ITS | Encounter Summary ---
:1985 Author Organization [facility] Address [address] [place] [address] Care Team Providers Name Role Phone Unavailable Primary Care Provider Unavailable Encounter Details Date Type Department Care Team Description 03/05/2015 Hospital Encounter HX [facility] ED Joslyn Snyder M.D. [address] [place], [place] [phone] (Wo rk) Social History [...] How often do you attend taoism or presybeterian More than 4 time s [...] 03/05/2015 10:42 AM CDT ED Depart Summary [facility] Emergency Department Clinical Discharge Summary PERSON INFORMATION Name PUNEET FRIED Age 29 Years 1985 12:00 AM Sex Female Language Surinamese PCP ALISON MONACO PA-C Marital Status Single Visit Id Visit Reason Throat pain - Adult; Extreme Throat Pain Specialty Enc Type Emergency Med Service Emergency Medicine Referred by Track Group [facility] ED Discharge 03/05/2015 10:30 AM Tracking Id [id number] Checkout 03/05/2015 10:30 AM Checkin 03/05/2015 6:02 AM Acuity 3 -Urgent Dispo Type * Discharged to Home or Self Care Arrival 03/05/2015 6:02 AM Reg Status Complete LOS 000 04:28 Address: [address] [place] [phone] Comment: PROVIDER INFORMATION Provider Role Provider Contact Time JOSLYN SNYDER MD ED Provider 03/05/15 06:20 MAURICE HAYS VEGETABLE CUTTER Nurse 03/05/15 06:20 JOSLYN SNYDER MD ED Provider 03/05/15 06:25 DAWNA HART VEGETABLE CUTTER Nurse 03/05/15 07:32 DIAGNOSIS Abscess Peritonsillar Comment: PATIENT EDUCATION INFORMATION Instructions: PERITONSILLAR ABSCESS Follow up: Source: [facility] POWERCHART Document Id: [id number] Dawna Hart R.N. - 03/05/2015 10:42 AM CDT ED Discharge Instructions [address] [place] [address] Name: PUNEET FRIED Date of : 1985 12:00 AM Visit Date: 03/05/2015 6:02 AM [facility] Number: [id number] Address: [address] [place] [phone] Primary Care Provider: ALISON MONACO PA-C IMPORTANT: [facility] in [place] would like to thank you for allowing [...] -- Trouble breathing or noisy breathing ?? [phone] [place] [address]. All rights reserved. This information is not [...] dont have one. Go to [email or web address] and click on Create Your Account. Then, follow the directions to complete the online form. Youll be asked for your [facility] number which you can find at the [...] Libertarian/Relationship Date Time Provider Signature Date Time Source: [employer] Document Id: [id number] documented in this encounter ED Notes Dawna [...] HART RN - 03/05/2015 10:41 CDT Source: [employer] Document Id: [id number] CDT!8 Dawna Hart R.N. - 03/05/2015 9:56 [...] HART RN - 03/05/2015 9:56 CDT Source: [employer] Document Id: [id number] CDT!10 Dawna Hart R.N. - 03/05/2015 8:59 [...] HART RN - 03/05/2015 8:59 CDT Source: [employer] Document Id: [id number] CDT!10 Dawna Hart R.N. - 03/05/2015 7:30 [...] HART RN - 03/05/2015 7:30 CDT Source: [employer] Document Id: [id number] CDT!12 Dawna Hart R.N. - 03/05/2015 7:27 [...] HART RN - 03/05/2015 7:27 CDT Source: [facility] [employer] Document Id: [id number] CDT!10 Joslyn Snyder M.D. - 03/05/2015 6:26 [...] She was seen in emergency room in [place] where she was diagnosed with strep throat [...] Stat, Patient Bed, Once, 03/05/2015 6:27 CDT, [facility] ED, Launch Orders Pharmacy: [email or web address] (Order Processing): [...] The patient was told to go to [place] [facility] for further management and [...] SNYDER MD On: 03/05/2015 10:19 AM Source: [facility] POWERCHART Document Id: [id number]} Maurice Hays RBrittaneyN. - 03/05/2015 6:14 AM [...] Medical ; Code: 305.1 ; Contributor System: [email or web address] ; Last Updated: 12/12/2014 9:21 CDT ; Life Cycle Date: 12/12/2014 ; Life Cycle Status: Active ; Responsible Provider: MAURICE ADDISON; Vocabulary: ICD-9-CM Dysthymic Disorder (ICD-9-CM :300.4 ) Name of Problem: Dysthymic Disorder ; Onset Date: 08/01/2010 ;Confirmation: Confirmed ; Classification: Medical ; Code: 300.4 ; Contributor System: PatientKeeperChart ; Last Updated: 12/12/2014 9:11 CDT ; Life Cycle Status: Active ; Vocabulary: ICD-9-CM ; Comments: - Dysthymic disorder Headache (ICD-9-CM :784.0 ) Name of Problem: Headache ; Onset Date: 10/24/2007 ; Confirmation: Confirmed ; Classification: Medical ; Code: 784.0 ; Contributor System: PatientKeeperChart ; Last Updated: 12/12/2014 9:11 CDT ; [...] PNED ; Probability: 0 ; Diagnosis Code: [id number] Triage Chief Complaint Description : see triage Mode of Arrival ED : Private vehicle, Ambulatory Track : Medical Languages : Surinamese Treatments Prior to Arrival : Acetaminophen, Ibuprofen [...] HAYS RN - 03/05/2015 6:14 CDT Source: [facility] [employer]CHART Document Id: [id number] CDT!48 Maurice Hays RMarcos. - 03/05/2015 6:09 [...] Medical ; Code: 346.90 ; Contributor System: PatientKeeperChart ; Last Updated: 12/12/2014 9:11 CDT ; [...] PNED ; Probability: 0 ; Diagnosis Code: [id number] Triage Chief Complaint Description : Pt presents with sore throat. Diagnosed February 27 with strep was seen in ER March 02 again and changed antibiotics. Pain continues, hard to swallow and swollen. Tonsils hugemore on left then right side. Information Given By : Patient Accompanied By : Alone Mode of Arrival ED : Private vehicle, Ambulatory Track : Medical Languages : Surinamese Vital Signs Assessed : Yes Treatments Prior [...] Acuity : 3 -Urgent Tracking Group : [facility] ED MAURICE HAYS RN - 03/05/2015 6:09 CDT Allergy (As Of: 03/05/2015 06:14:25 CDT) Allergies (Active) penicillins Estimated Onset Date: Unspecified ; Created By: GLEN ACOSTA; Reaction Status: Active ;Category: Drug ; Substance: penicillins ; Type: Allergy ; Updated By: GLEN ACOSTA; Reviewed Date: 03/05/2015 6:14 CDT Immunizations Immunizations Current : Yes MAURICE HAYS RN - 03/05/2015 6:09 CDT Source: [employer] Document Id: [id number] CDT!48 documented in this encounter Miscellaneous Notes Miscellaneous - Dawna Hart R.N. - 03/05/2015 10:41 AM CDT Valuables/Belongings Valuables/Belongings Entered On: 03/05/2015 10:41 CDT Performed On: 03/05/2015 10:41 CDT by DAWNA HART RN Valuables/Belongings Belongings Sent Home With : patient DAWNA HART RN - 03/05/2015 10:41 CDT Source: [employer] Document Id: [id number] CDT!3 Miscellaneous - Conversion, Historical Provider Ser - 03/05/2015 10:30 AM CDT Coding Summary-Paper Based CODING DATE: 03/18/2015 FINAL [facility] STATUS: * Discharged to Home or [...] PATRICK Date Saved: 03/18/2015 11:39 am Source: [facility] POWERCHART Document Id: [id number] Miscellaneous - Dawna Hart RRoverto - 03/05/2015 [...] Control : 7 Lynx Visit Level : 79369 Level 3 Treatments Prior to Arrival : Acetaminophen, Ibuprofen DAWNA HART RN - 03/05/2015 10:41 CDT Source: [facility] POWERCHART Document Id: [id number] CDT!19 documented in this encounter Plan of [...] Mononucleosis Screen, POCT (03/05/2015 6:54 AM CDT) [facility] L'ArcoBaleno Method Time Signature Infectious POWERCHART [place] Test, S HXFinal Negative POWERCHART HXFinal Reference: POWERCHART Negative Specimen (Source) Anatomical Collection Method Collection Time Re ceived Time Location / / Volume Laterality Blood 03/05/2015 6:54 AM CDT Joslyn Snyder M.D. LAB POCT ORDERABLES-MANUAL Performing Organization Address City/[facility] Code Phon e Number POWERCHART Test, Qualitative, Urine (03/05/2015 6:30 AM CDT) [facility]'Arco[facility] Method Time Signature HXBeta-hCG Negative POWERCHART Qualitative Urine Specimen (Source) Anatomical Collection Method Collection Time Re ceived Time Location / / Volume Laterality Urine 03/05/2015 6:30 AM CDT Joslyn Snyder M.D. LAB URINE ORDERABLES Performing Organization Address City/[facility] Code Phon e Number POWERCHART documented in this encounter Visit Diagnoses Not on filedocumented in this encounter Additional Health Concerns Assessment Noted Time PHQ-9 Depression Total Score: 11 12/13/2014 9:50 AM CD T documented as of this encounter
--- OUTSIDE RECORDS SUMMARY | 2022-07-17 08:10 | XMS_ITS | Encounter Summary ---
:1985 Author Organization [facility] Address [address] [place] [address] Care Team Providers Name Role Phone Unavailable Primary Care Provider Unavailable Encounter Details Date Type Department Care Team Description 03/20/2015 Hospital Encounter HX [facility] Barbra Yancey M.D. [address] [place] [phone] (Wo rk) Social History Tobacco Use [...] How often do you attend jewish or congregation More than 4 time s [...] Summary-Paper Based CODING DATE: 03/28/2015 FINAL [place] [facility] STATUS: * [...] ZENG Date Saved: 03/28/2015 07:42 am Source: [employer] POWERCHART Document Id: [id number] documented in this encounter Plan of Treatment Not on filedocumented as of this encounter Visit Diagnoses Not on filedocumented in this encounter Additional Health Concerns Assessment Noted Time PHQ-9 Depression Total Score: 11 12/13/2014 9:50 AM CD T documented as of this encounter
--- OUTSIDE RECORDS SUMMARY | 2022-07-17 08:10 | XMS_ITS | Encounter Summary ---
:1985 Author Organization [facility] Address [address] [place] [address] Care Team Providers Name Role Phone Unavailable Primary Care Provider Unavailable Encounter Details Date Type Department Care Team Description 12/10/2015 Hospital Encounter HX [facility] Renny Castro M.D. [address] [place], [place] [phone] (Wo rk) Social History [...] How often do you attend holiness or yarsanism More than 4 time s [...] Acuna M.D. - 12/10/2015 7:54 AM CDT [id number] CHIEF COMPLAINT/REASON FOR VISIT A 3-month history [...] ACUNA MD On: 12/11/2015 08:52 AM Source: [facility] MHSDOLBEYNONRADSYS Document Id: [id number] documented in this encounter Miscellaneous Notes Miscellaneous - Timbo Acuna M.D. - 12/10/2015 9:16 AM CDT Ambulatory Patient Summary [address] [phone] Visit Information Name: PUNEET CLAYTON [facility] Number: [id number] Current Date: 12/10/2015 09:16:05 Physicians [...] day x 14 day(s) [facility] [address] [place] [id number] topiramate (topiramate 25 mg oral tablet) 2 [...] if you dont have one. Go to [email or web address] and click on Create Your Account. Then, follow the directions to complete the online form. Youll be asked for your [facility] number which you can find at the top of this document. Your Goals/Additional instructions: Source: [facility] POWERCHART Document Id: [id number] Miscellaneous - iTmbo Acuna M.D. - 12/10/2015 9:16 AM CDT Ambulatory Discharge Medication List [address] [phone] Visit Information Name: PUNEET CLAYTON [facility] Number: [id number] Visit Date: 12/10/2015 09:16:04 Attending [...] day x 14 day(s) New Routed to [address] [address] topiramate (topiramate 25 mg oral tablet) 2 [...] Signed By: Signed On: Additional Information: Source: [facility] POWERCHART Document Id: [id number] Miscellaneous - Abimbola Perry L.P.N. 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 Intake/History Adult Caustic Pump Operator Intake/History Entered On: 12/10/2015 8:09 CDT Performed [...] 12/10/2015 8:07 CDT General Info Languages : Hungarian Is Patient Female and [...] PERRY LPN - 12/10/2015 8:07 CDT Source: [facility] [employer] Document Id: [id number] CDT!43 documented in this encounter Plan of Treatment Not on filedocumented as of this encounter Visit Diagnoses Not on filedocumented in this encounter Additional Health Concerns Assessment Noted Time PHQ-9 Depression Total Score: 11 12/13/2014 9:50 AM CD T documented as of this encounter
--- OUTSIDE RECORDS SUMMARY | 2022-07-17 08:10 | XMS_ITS | Encounter Summary ---
:1985 Author Organization [facility] Address [address] [place] [address] Care Team Providers Name Role Phone Unavailable Primary Care Provider Unavailable Encounter Details Date Type Department Care Team Description 11/06/2016 Hospital Encounter HX [facility] Leonora Melchor A PRN, C.N.P. [address] [place], [place] [phone] (Wo rk) Social History [...] often do you attend latter day or christian More than 4 time s [...] confirmation of due to + test at [facility]. She is , they have a 9 [...] NIL G1: 1 FT Date: 01-03-2008. Location [place]. weight 7#13oz Complications high blood pressure Delivery [...] BMI 59. We discussed care here at [facility] [place], [place] 3) smoker, quitting. Electronically Signed By: LEONORA VILLASEÑOR CNP, RN On: 11/06/2016 12:06 PM Modified by and Electronically Signed by: LEONORA VILLASEÑOR CNP, RN On: 11/06/2016 10:46 AM Source: [facility] POWERCHART Document Id: [id number] documented in this encounter Miscellaneous Notes Miscellaneous - Leonora Villaseñor R.N. - 11/06/2016 12:02 PM CDT Ambulatory Discharge Medication List [facility] [address] [place], [address] [place], [place] [phone] Visit Information Name: PUNEET COOLEY [facility] Number: [id number] Current Date: 11/06/2016 12:02:18 Attending Provider: LEONORA VILLASEÑOR CNP respiratory therapy manager Provider: CATRACHO NAZARIO PA-C PUNEET COOLEY has [...] RN Signed On:06-NOV-2016 12:02:17 Additional Information: Source: [facility] POWERCHART Document Id: [id number] Miscellaneous - Leonora Villaseñor RMarcos. - 11/06/2016 12:02 PM CDT Ambulatory Patient Summary [facility] [address], [address] [place], [place] [phone] Visit Information Name: PUNEET COOLEY [facility] Number: [id number] Current Date: 11/06/2016 12:02:19 Physicians [...] if you dont have one. Go to [email or web address] and click on Create Your Account. Then, follow the directions to complete the online form. Youll be asked for your [facility] number which you can find at the top of this document. Your Goals/Additional instructions: Source: [facility] POWERCHART Document Id: [id number] Miscellaneous - Maurice Dozier L.PBrittaneyN. 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 LMP Date : 10/03/2016 Systolic Blood Pressure [...] 11/06/2016 9:09 CDT General Info Languages : Ivorian Is Patient Female and 13-50 no hysterectomy [...] DOZIER LPN - 11/06/2016 9:09 CDT [facility] Document Id: [id number] CDT!39 Miscellaneous - Maurice Dozier L.P.NBrittaney - [...] Alcohol Use : No DOZIER, MAURICE Maureen [facility] - 11/06/2016 9:08 CDT Caffeine Use Grid Caffeine Use : Current Type : Coffee, Soft drinks Frequency : Occasionally MAURICE DOZIER [facility] - 11/06/2016 9:08 CDT Recreational Drug Use Grid Drug Use : None SUKH DOZIERFER Maureen [facility] - 11/06/2016 9:08 CDT Psychosocial Domestic Abuse Concerns : None Behavioral Health Screen/Safety Assmt : Unable to obtain Restorationism Preference : No qualifying data available. MAURICE DOZIER [facility] 11/06/2016 9:08 CDT Advance Directive Advanced Directives : No Advance Directive Additional Information : No MAURICE DOZIER [facility] 11/06/2016 9:08 CDT Educ Needs Learning Style Preference Adult Grid Patient : None Family : None MAURICE DOZIER [facility] 11/06/2016 9:08 CDT Source: [facility] POWERCHART Document Id: [id number] CDT!37 documented in this encounter Plan of [...]
--- OUTSIDE RECORDS SUMMARY | 2022-07-17 08:11 | XMS_ITS | Encounter Summary ---
:[address] [facility] Address [address] [place] [address] Care Team Providers Name Role Phone Unavailable Primary Care Provider Unavailable Encounter Details Date Type Department Care Team Description 03/24/2012 [facility] [address] [place] [phone] (Wo rk) Social History Tobacco Use [...] How often do you attend zoroastrianism or jew More than 4 time s [...] Farias M.D. - 03/24/2012 12:00 AM CDT [id number] CHIEF COMPLAINT/REASON FOR VISIT Urinary frequency. HISTORY [...] of the content Leonora Brito M.D./[facility] Electronically Signed By: LEONORA NATHAN MD On: 04/05/2012 10:30 AM Modified by and Electronically Signed by: LEONORA NATHAN MD On: 04/05/2012 10:29 AM Source: [facility] MHSDOLBEYNONRADSYS Document Id: [id number] documented in this encounter Miscellaneous Notes Miscellaneous - Leonora Farias M.D. - 03/24/2012 11:41 AM CDT Ambulatory Patient Summary [phone] [place] [address] Visit Information Name: PUNEET FRIED Current Date: [...] No Appointments found Your Goals/Additional instructions: Source: [facility] POWERCHART Document Id: [id number] Leonora Russell M.D. - 03/24/2012 11:41 AM CDT Ambulatory Depart Summary [address] [address] Visit Information Name: PUNEET FRIED Visit Date: [...] your provider for clarification. Additional Information: Source: [facility] [employer] SoftwareCHART Document Id: [id number] Mimi Gaines L.P.N. - 03/24/2012 11:23 AM CDT Adult Process Improvement Consultant Intake/History Adult Process Improvement Consultant Intake/History Entered On: 03/24/2012 11:30 CDT Performed [...] Preferred Communication Mode : Verbal Languages : Hungarian MIMI HERRERA LPN, RT - 03/24/2012 11:23 [...] ACOSTA; Reviewed Date: 01/21/2012 9:28 CDT Source: [facility] POWERCHART Document Id: [id number] documented in this encounter Plan of Treatment [...] Results Urine Microscopic (03/24/2012 11:34 AM CDT) [facility] Method Time Signature HXUr WBC 10-25 0 [...] POWERCHART Urinalysis, Routine (03/24/2012 11:34 AM CDT) [facility] Method Time Signature HXUr Color Yellow POWERCHART Appearance Slightly POWERCHART Cloudy Glucose Negative POWERCHART HXBILIRUBIN Negative POWERCHART Ketones, QL(U) Negative POWERCHART Specific 1.025 1.000 - POWERCHART Irene, POCT, U 1.030 pH, POCT, Urine 5.5 [...]
--- OUTSIDE RECORDS SUMMARY | 2022-07-17 08:11 | XMS_ITS | Encounter Summary ---
:1985 Author Organization [facility] Address [address] [place] [address] Care Team Providers Name Role Phone Unavailable Primary Care Provider Unavailable Encounter Details Date Type Department Care Team Description 04/30/2014 Hospital Encounter HX [facility] ED Remi Marvin M.D. [address] [phone] (Wo rk) Social History Tobacco [...] How often do you attend confucianism or lutheran More than 4 time s [...] 04/30/2014 7:01 PM CDT ED Discharge Instructions [address] [address] Name: PUNEET FRIED Date of : 1985 12:00 AM Visit Date: 04/30/2014 4:05 PM [facility] Number: [id number] Address: [address] [place] [phone] Primary Care Provider: MICHELLE BEAR MD IMPORTANT: [facility] in [place] would like to thank you for allowing us to assist you with your healthcare needs. The following includes patient education materials and informationregarding your injury/illness. Diagnosis: Allergy Bee Sting Active; Hives; Reaction Allergic Active Follow-Up Instructions: With: Address: When: MICHELLE BEAR [address] [place] [address] [facility] (1) Within As Needed Comments: For recheck If symptoms worsen Your Upcoming Appointments: Date Time Location Provider No Appointments found Patient Education Materials: [id number] ALLERGIC REACTION, OTHER [local] You are having [...] Colored fluid draining from the wound ?? 4745-0475 [place] [address]. All rights reserved. This information is not intended as a substitute for professional medical care. Always follow your healthcare professional's instructions. [id number] MEDICATION: ZYRTEC Zyrtec (generic name is cetirizine) [...] any questions that you may have.] ?? 9306-3811 [place] [address]. All rights reserved. This information is not intended as a substitute for professional medical care. Always follow your healthcare professional's instructions. [id number] INSECT BITE Insects most often bite to [...] HOME CARE Medications: The doctor may prescribe iten-afc-goywmgg (OTC) medications to help relieve itching andswelling. [...] you have trouble breathing, call 911) ?? [phone] [facility], [address] [place] [address]. All rights reserved. This information is not [...] document has images extracted. Please consider using [employer] for all your patient education needs. Source: [facility] POWERCHART Document Id: [id number] Bambi Addison R.N. - 04/30/2014 7:01 PM CDT ED Depart Summary [facility] Emergency Department Clinical Discharge Summary PERSON INFORMATION Name PUNEET FRIED Age 28 Years 1985 12:00 AM Sex Female Language Kosovan PCP MICHELLE BEAR MD Marital Status Single Visit Id Visit Reason Hand pain-swelling; Bee Sting Specialty Enc Type Emergency Med Service Emergency Medicine Referred by Track Group [facility] ED Discharge 04/30/2014 6:20 PM Tracking Id [id number] Checkout 04/30/2014 6:20 PM Checkin 04/30/2014 4:05 PM Acuity 4 -Less Urgent Dispo Type * Discharged to Home or Self Care Arrival 04/30/2014 4:05 PM Reg Status Complete LOS 000 02:15 Address: [address] [place] [phone] Comment: PROVIDER INFORMATION Provider Role Provider Contact Time RUIZ MARVIN MD ED Provider 04/30/14 16:37 BAMBI ADDISON CLASSROOM TECHNOLOGY COACH Nurse 04/30/14 17:21 DIAGNOSIS Allergy Bee Sting Active; Hives; Reaction Allergic Active Comment: PATIENT EDUCATION INFORMATION Instructions: ALLERGIC REACTION, Other (Local); ZYRTEC; INSECT BITE Follow up: With: Address: When: MICHELLE BEAR [address] [place] [address] [phone] [email or web address] (4) Within As Needed Comments: For recheck If symptoms worsen Source: [employer] Document Id: [id number] documented in this encounter ED Notes Bambi [...] ADDISON RN - 04/30/2014 18:59 CDT Source: [employer] Document Id: [id number] CDT!9 Bambi Addison R.N. - 04/30/2014 6:57 [...] ADDISON RN - 04/30/2014 18:57 CDT Source: [employer] Document Id: [id number] CDT!7 Bambi Addison R.N. - 04/30/2014 6:10 [...] ADDISON RN - 04/30/2014 18:55 CDT Source: [employer] Document Id: [id number] CDT!11 Bambi Addison R.N. - 04/30/2014 5:45 [...] ADDISON RN - 04/30/2014 18:52 CDT Source: [employer] Document Id: [id number] CDT!19 Bambi Addison R.N. - 04/30/2014 5:30 [...] ADDISON RN - 04/30/2014 18:50 CDT Source: [employer] Document Id: [id number] CDT!13 Ruiz Marvin M.D. - 04/30/2014 5:22 [...] (maternal) Comments: 03/13/2014 13:47 - JORY COPPOLA PRECISION LAYOUT WORKER ear Grandfather (maternal) Comments: 03/13/2014 13:47 - JORY COPPOLA LPN larynx Cystic fibrosis Sister [place] - Lung cancer Grandmother (paternal, ) Comments: 03/13/2014 13:47 - JORY COPPOLA PRECISION LAYOUT WORKER brain cancer Hypothyroidism Mother Myocardial infarction Father: [...] PM This document has images extracted. Source: [facility] POWERCHART Document Id: [id number]} Bambi Addison RRoverto - 04/30/2014 4:22 PM [...] Medical ; Code: 300.4 ; Contributor System: [facility]_HX_PR_UPLOAD ; Last Updated: 11/18/2013 19:04 CDT ; Life Cycle Status: Active ; Vocabulary: ICD-9-CM ; Comments: - Dysthymic disorder Headache (ICD-9-CM :784.0 ) Name of Problem: Headache ; Onset Date: 10/24/2007 ; Confirmation: Confirmed ; Classification: Medical ; Code: 784.0 ; Contributor System: [facility]_HX_PR_UPLOAD ; Last Updated: 11/18/2013 19:04 CDT [...] Medical ; Code: V22.2 ; Contributor System: [employer] ; Last Updated: 01/21/2012 9:41 CDT ; Life Cycle Date: 01/12/2012 ; Life Cycle Status: Active ; Responsible Provider: GLEN ACOSTA; Vocabulary: ICD-9-CM Diagnoses(Active) Hand pain-swelling Date: 04/30/2014 ; Diagnosis Type: Reason For Visit ; Confirmation: Complaint of ; Clinical Dx: Hand pain-swelling ; Classification: Medical ; Clinical Service: Emergency medicine ; Code: PNED ; Probability: 0 ; Diagnosis Code: [id number] Triage Chief Complaint Description : see triage note Mode of Arrival ED : Private vehicle, Ambulatory Track : Medical Languages : Kosovan Is Patient Female and 13-50 no hysterectomy [...] ADDISON RN - 04/30/2014 16:22 CDT Source: [facility] Desall Document Id: [id number] CDT!53 Bambi Addison R.N. - 04/30/2014 4:11 [...] Medical ; Code: 300.4 ; Contributor System: [facility]_HX_PR_UPLOAD ; Last Updated: 11/18/2013 19:04 CDT ; Life Cycle Status: Active ; Vocabulary: ICD-9-CM ; Comments: - Dysthymic disorder Headache (ICD-9-CM :784.0 ) Name of Problem: Headache ; Onset Date: 10/24/2007 ; Confirmation: Confirmed ; Classification: Medical ; Code: 784.0 ; Contributor System: [employer]_PR_UPLOAD ; Last Updated: 11/18/2013 19:04 CDT ; [...] Medical ; Code: V22.2 ; Contributor System: [employer] ; Last Updated: 01/21/2012 9:41 CDT ; Life Cycle Date: 01/12/2012 ; Life Cycle Status: Active ; Responsible Provider: GLEN ACOSTA; Vocabulary: ICD-9-CM Diagnoses(Active) Hand pain-swelling Date: 04/30/2014 ; Diagnosis Type: Reason For Visit ; Confirmation: Complaint of ; Clinical Dx: Hand pain-swelling ; Classification: Medical ; Clinical Service: Emergency medicine ; Code: PNED ; Probability: 0 ; Diagnosis Code: [id number] Triage Chief Complaint Description : was stung by bee last grace and awoke this am with left wrist and hand swollen and red. Information Given By : Patient Accompanied By : Alone Mode of Arrival ED : Private vehicle, Ambulatory Track : Medical Languages : Kosovan Patient Informed of Triage Location : Emergency [...] : 4 -Less Urgent Tracking Group : [facility] ED BAMBI ADDISON SHRUTHI - 04/30/2014 16:11 CDT Allergy (As Of: 04/30/2014 16:17:45 CDT) Allergies (Active) penicillins Estimated Onset Date: Unspecified ; Created By: GLEN ACOSTA; Reaction Status: Active ;Category: Drug ; Substance: penicillins ; Type: Allergy ; Updated By: GLEN ACOSTA; Reviewed Date: 03/13/2014 13:40 CDT Source: [employer] Document Id: [id number] CDT!49 documented in this encounter Miscellaneous Notes Miscellaneous - Bambi Addison R.N. - 04/30/2014 7:00 PM CDT Valuables/Belongings Valuables/Belongings Entered On: 04/30/2014 19:00 CDT Performed On: 04/30/2014 19:00 CDT by BAMBI ADDISON RN Valuables/Belongings Valuables/Belongings Grid Valuables with Patient Clothes, Patient Valuables : Pants, Shirt, Shoes, Undergarments Electronic Devices : Cell phone BAMBI ADDISON RN - 04/30/2014 19:00 CDT Source: [employer] Document Id: [id number] CDT!6 Miscellaneous - Bambi Addison R.N. - [...] Control : 5 Lynx Visit Level : [address]2339 Level 3 Treatments Prior to Arrival : None BAMBI ADDISON RN - 04/30/2014 19:00 CDT Source: [facility] Desall Document Id: [id number] CDT!18 documented in this encounter Plan of Treatment Not on filedocumented as of this encounter Visit Diagnoses Not on filedocumented in this encounter Additional Health Concerns Assessment Noted Time PHQ-9 Depression Total Score: 16 04/02/2014 9:58 AM CD T documented as of this encounter
--- OUTSIDE RECORDS SUMMARY | 2022-07-17 08:11 | XMS_ITS | Encounter Summary ---
:1985 Author Organization [facility] Address [address] [place] [address] Care Team Providers Name Role Phone Unavailable Primary Care Provider Unavailable Encounter Details Date Type Department Care Team Description 11/03/2012 - Hospital Encounter [facility]X [facility] ED Stephen Toth M.D. 11/04/2012 Social History [...] How often do you attend cheondoism or catholic More than 4 time s [...] 11/14/2012 2:53 PM CDT ED Discharge Instructions [address] [address] Name: PUNEET FRIED Date of : 1985 12:00 AM Visit Date: 11/03/2012 8:13 PM [facility] Number: [id number] Address: [address] [place] [phone] Primary Care Provider: RABIA NATHAN MD IMPORTANT: [facility] in [place] would like to thank you for allowing [...] with fevers. With: Address: When: RABIA NATHAN [address] [place] [phone] Business (1) Within As Needed Comments: Patient Education Materials: [id number] NECK SPASM [No trauma] Spasm of the [...] or vomiting Fever over 100.4??F (38.0??C) ?? [id number] [employer], [address] [place] [address]. All rights reserved. This information is not [...] document has images extracted. Please consider using [employer] for all your patient education needs. Source: [facility] POWERCHART Document Id: [id number] Jeaneth Rodríguez R.N. - 11/14/2012 2:53 PM CDT ED Depart Summary [facility] Emergency Department Clinical Discharge Summary PERSON INFORMATION Name PUNEET FRIED Age 26 Years 1985 12:00 AM Sex Female Language South African PCP RABIA NATHAN MD Marital Status Single N [id number] [id number] Visit Reason ; Head pain; PAIN, BACK, RT SIDE OF HEAD Specialty Enc Type Emergency Med Service Emergency Medicine Referred by Track Group [facility] ED Discharge 11/04/2012 4:26 PM Tracking Id [id number] Checkout 11/04/2012 3:14 PM Checkin 11/03/2012 8:13 PM Acuity Dispo Type * Discharged to Home or Self Care Arrival 11/03/2012 8:13 PM Reg Status LOS 000 19:01 Address: [address] [place] [phone] Comment: PROVIDER INFORMATION Provider Role Provider Contact Time RUIZ KING MD ED Provider 11/04/12 15:11 RUIZ KING MD ED Provider 11/04/12 15:11 DIAGNOSIS Comment: PATIENT EDUCATION INFORMATION Instructions: NECK SPASM, No Trauma Follow up: With: Address: When: Return to Emergency Department Within As Needed Comments: Return to ER if you develop severe worsening, generalized headache with fevers. With: Address: When: RABIA VENITA [address] [place] [address] Business (1) Within As Needed Comments: Source: [facility] RallyOn Document Id: [id number] documented in this encounter Nursing Notes Rylee [...] Medical ; Code: 1231 ; Contributor System: [facility] ; Last Updated: 01/21/2012 9:41 CDT ; Life Cycle Date: 01/12/2012 ; Life Cycle Status: Active ; Responsible Provider: GLEN ACOSTA; Vocabulary: ICD-9-CM Diagnoses(Active) Head pain Date: 11/03/2012 ; Diagnosis Type: Reason For Visit ; Confirmation: Complaint of ; Clinical Dx: Head pain ; Classification: Medical ; Clinical Service: Emergency medicine ; Code: PNED ; Probability: 0 ; Diagnosis Code: [id number] Triage Chief Complaint Description : see notes Information Given By : Patient Accompanied By : Friend Mode of Arrival ED : Private vehicle Track : Medical Languages : South African RYLEE ROMERO RN - 11/03/2012 20:47 CDT [...] ROMERO RN - 11/03/2012 20:47 CDT Source: [facility] [employer] Document Id: [id number] documented in this encounter ED Notes Stephen [...] selected or recorded. Surgical history: . None ([id number]). Family history: . No family history items [...] % 58.8 % Lymph % 31.9 % [place] % 6.9 % Eos % 2.2 % Baso % 0.2 % Neutro Absolute 5.73 10(9)/L Lymph Absolute 3.10 x10(9)/L HI [place] Absolute 0.67 x10(9)/L Eos Absolute 0.21 x10(9)/L [...] TOTH MD On: 11/03/2012 09:21 PM Source: [facility] [employer]On Document Id: [id number]} Rylee Romero R.N. - 11/03/2012 8:44 PM [...] Medical ; Code: 1231 ; Contributor System: [facility] ; Last Updated: 01/21/2012 9:41 CDT ; Life Cycle Date: 01/12/2012 ; Life Cycle Status: Active ; Responsible Provider: GLEN ACOSTA; Vocabulary: ICD-9-CM Diagnoses(Active) Head pain Date: 11/03/2012 ; Diagnosis Type: Reason For Visit ; Confirmation: Complaint of ; Clinical Dx: Head pain ; Classification: Medical ; Clinical Service: Emergency medicine ; Code: PNED ; Probability: 0 ; Diagnosis Code: [id number] Triage Chief Complaint Description : 26 year old female admits with compalints of right sided ocipital painx24 hrs. Pt states she has been exposed to menigitis on Wednesday Information Given By : Patient Mode of Arrival ED : Private vehicle Track : Medical Languages : South African RYLEE ROMERO RN - 11/03/2012 20:44 CDT [...] ROMERO RN - 11/03/2012 20:44 CDT Source: [employer] Document Id: [id number] documented in this encounter Miscellaneous Notes Miscellaneous [...] Control : 8 Lynx Visit Level : [address]441 Level 4 [place] - 11/08/2012 13:29 CDT Source: [employer] Document Id: [id number] documented in this encounter Plan of Treatment [...] % 31.9 23.0 - POWERCHART 44.0 HX [place] % 6.9 2.0 - 18.0 POWERCHART HX [...] / Volume Laterality Blood 11/03/2012 9:10 PM 3 9:10 CDT PM CDT Stephen Toth [...] M.D. LAB HISTORICAL ORDERS Performing Organization Address City/[facility]/ZIP Code Phon e Number POWERCHART CRP (C-Reactive Protein) (11/03/2012 9:10 PM CDT) P athologist Signature C-Reactive 0.4 0.0 - 0.8 POWERCHART Protein (CRP), MGDL S Specimen (Source) Anatomical Collection Method Collection Time Re ceived Time Location / / Volume Laterality Blood 11/03/2012 9:10 PM CDT Stephen Toth M.D. LAB BLOOD ADD-ON Performing Organization Address City/[facility] Code Phon e Number POWERCHART documented in this encounter Visit Diagnoses Not on filedocumented in this encounter
--- OUTSIDE RECORDS SUMMARY | 2022-07-17 08:11 | XMS_ITS | Encounter Summary ---
:1985 Author Organization [facility] Address [address] [place] [address] Care Team Providers Name Role Phone Unavailable [...] How often do you attend jewish or sabianist More than 4 time s [...] Magallanes, Ph.D. - 11/15/2012 12:00 AM CDT [id number] LETTER Carol Dowell Juarez [address] [place] [phone] November 15, 2012 Dear Carol: In reviewing my records, I realized that I have not seen you for sometime. I am writing, therefore, to determine if you are interested in continuing therapy and desire to schedule a new appointment. If you would like an appointment, please call our machine setter supervisor at [phone] or . Ifwe do not hear from you within two weeks, we will assume that your are not interested in scheduling further appointments. I look forward to hearing from you. Sincerely, Kaye Magallanes, Ph.D., L.P. Source: [facility] RWHXTRANSXRTFSYS Document Id: [id number] documented in this encounter Plan of Treatment Not on filedocumented as of this encounter Visit Diagnoses Not on filedocumented in this encounter
--- OUTSIDE RECORDS SUMMARY | 2022-07-17 08:11 | XMS_ITS | Encounter Summary ---
:1985 Author Organization [facility] Address [address] [place] [address] Care Team Providers Name Role Phone Unavailable Primary Care Provider Unavailable Encounter Details Date Type Department Care Team Description 01/25/2013 Hospital Encounter HX [facility] Renuka Choi M.D. [address] [place] [phone] (Wo rk) Social History Tobacco [...] How often do you attend pentecostal or confucianist More than 4 time s [...] Borges M.D. - 01/25/2013 9:45 AM CDT [id number] SUBJECTIVE: Carol Juarez is an 27 year [...] line 8-2-10, 06/11/10 Alcohol Use: Yes rare Office Helper History: No history of STDs. PAP NIL [...] to procedure - YES. 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 Will check a TVUS to confirm proper placement PE: Reviewed health maintenance including diet, regular exercise and periodic exams. Source: [facility] RWHXTRANSXRTFSYS Document Id: [id number] Electronically signed by Conversion, [facility] Front Line Leader [id number] at 01/18/2017 6:08 PM CDT documented in this encounter Miscellaneous Notes Miscellaneous - Nyasia Borges M.D. - 01/25/2013 9:45 AM CDT [id number] January 30, 2013 Carol Juarez [address] [place] [phone] Your doctor has requested to have you return for a thryoid, glucose, and cholesterol test at this time. You may call our office at [phone] in Obstetrics/Gynecology to schedule an appointment. Please ask to schedule a LAB APPOINTMENT Please disregard this notice if you already have had this lab repeated or have already made an appointment. Sincerely, Lory Hardy Source: [facility] RWHXTRANSXRTFSYS Document Id: [id number] Electronically signed by Conversion, [facility] Front Line Leader [id number] at 01/18/2017 6:08 PM CDT documented in [...] Volume Laterality 01/26/2013 2:[address] [facility] - 10/23/19 14 9:59 PM BAGGAGE HANDLER Negative for C. trachomatis rRNA by used car make ready worker mediated amplification. A negative result by used car make ready worker media pipe amplification does not preclude the presence of C. trachomatis infection bec ause results are dependent on proper and adequate collection, absence of inhi bitors, and sufficient rRNA to be detected. Historical Provider LAB HISTORICAL ORDERS Performing Organization Address City/State/ZIP Code Phon e Number [facility] HX SN - SPEC - DESCRIPTION (01/26/2013 2:02 PM CDT) P athologist Signature HXSPECIMAN Cervix [facility] Specimen (Source) Anatomical Collection Method Collection Time Re ceived Time Location / / Volume Laterality 01/26/2013 2:02 PM CDT Historical Provider LAB HISTORICAL ORDERS Performing Organization Address City/State/ZIP Code Phon e Number [facility] Chlamydia trachomatis Amplified RNA (01/26/2013 2:02 PM CDT) Specimen (Source) Anatomical Collection Method Collection Time Re ceived Time Location / / Volume Laterality 01/26/2013 2:[address] [facility] - 10/23/19 14 9:59 PM BAGGAGE HANDLER Negative for N. gonorrhoeae rRNA by used car make ready worker mediated amplification. A negative result by used car make ready worker media pipe amplification does not preclude the presence of N. gonorrhoeae infection bec ause results are dependent on proper and adequate collection, absence of inhi bitors, and sufficient rRNA to be detected. Historical Provider LAB MICROBIOLOGY - GENERAL O RDERABLES Performing Organization Address City/State/ZIP Code Phon e Number [facility] HX SN - SPEC - DESCRIPTION (01/26/2013 2:02 PM CDT) P athologist Signature HXSPECIMAN Cervix [facility] Specimen (Source) Anatomical Collection Method Collection Time Re ceived Time Location / / Volume Laterality 01/26/2013 2:02 PM CDT Historical Provider LAB HISTORICAL ORDERS Performing Organization Address City/State/ZIP Code Phon e Number [facility] documented in this encounter Visit Diagnoses Not on filedocumented in this encounter
--- OUTSIDE RECORDS SUMMARY | 2022-07-17 08:11 | XMS_ITS | Encounter Summary ---
:[address] [facility] Address [address] [place] [address] Care Team Providers Name Role Phone Unavailable Primary Care Provider Unavailable Encounter Details Date Type Department Care Team Description 04/05/2012 Hospital Encounter HX [facility] [place] Gildardo Marvin M.D. [address] [place] [phone] (Wo rk) Social History Tobacco Use [...] How often do you attend mormonism or mormonism More than 4 time s [...] Marvin M.D. - 04/05/2012 7:55 AM CDT [id number] IMPRESSION/REPORT/PLAN 1) Bronchitis with bacterial sinusitis with [...] MARVIN MD On: 04/06/2012 11:36 AM Source: [facility] MHSDOLBEYNONRADSYS Document Id: [id number] documented in this encounter Miscellaneous Notes Miscellaneous - Dung Noonan R.N. - 04/30/2014 3:53 PM CDT bee sting, ER From: DUNG NOONAN RN Sent: 04/30/2014 15:53:29 CDT Subject: bee sting, ER Pt has no PCP here, calls with bee sting on wrist yesterday getting worse, hand warm and red, swollen from fingers up wrist, breathing fine she reports. ER advised and notified. Source: [facility] POWERCHART Document Id: [id number] Electronically signed by Conversion, [facility] Human Resource Management Instructor [id number] at 01/23/2017 4:51 PM CDT Miscellaneous - Vinicio Marvin M.D. - 04/05/2012 9:05 AM CDT Ambulatory Patient Summary [place] [id number] Visit Information Name: PUNEET FRIED Current Date: [...] No Appointments found Your Goals/Additional instructions: Source: [facility] POWERCHART Document Id: [id number] Leilani - Vinicio Marvin M.D. - 04/05/2012 9:05 AM CDT Ambulatory Depart Summary [address] [address] Visit Information Name: PUNEET FRIED Visit Date: [...] your provider for clarification. Additional Information: Source: [facility] POWERCHART Document Id: [id number] Leilani - Roosevelt Rodriges L.P.N. - 04/05/2012 8:07 AM CDT Adult Head Of Marketing Analytics Intake/History Adult Head Of Marketing Analytics Intake/History Entered On: 04/05/2012 8:11 CDT Performed [...] ACOSTA; Reviewed Date: 03/24/2012 11:30 CDT Source: [facility] POWERCHART Document Id: [id number] documented in this encounter Plan of Treatment Not on filedocumented as of this encounter Visit Diagnoses Not on filedocumented in this encounter
--- OUTSIDE RECORDS SUMMARY | 2022-07-17 08:11 | XMS_ITS | Encounter Summary ---
:1985 Author Organization [facility] Address [address] [place] [address] Care Team Providers Name Role Phone Unavailable [...] How often do you attend alevism or zoroastrian More than 4 time s [...] Magallanes, Ph.D. - 04/15/2012 12:00 AM CDT [id number] LETTER Carol Dowell Juarez [address] [place] [phone] April 15, 2012 Dear Carol: Our records [...] to keep this appointment, please call the [facility] [place] [facility] as soon as possible at or toll-free to reschedule or cancel. We look forward to hearing from you. Thank you, [facility] [place] Source: [facility] RWMCHXTRANSXRTFSYS Document Id: [id number] documented in this encounter Plan of Treatment Not on filedocumented as of this encounter Visit Diagnoses Not on filedocumented in this encounter
--- OUTSIDE RECORDS SUMMARY | 2022-07-17 08:11 | XMS_ITS | Encounter Summary ---
:1985 Author Organization [facility] Address [address] [place] [address] Care Team Providers Name Role Phone Unavailable [...] How often do you attend yazidism or taoist More than 4 time s [...]
--- OUTSIDE RECORDS SUMMARY | 2022-07-17 08:11 | XMS_ITS | Encounter Summary ---
:1985 Author Organization [facility] Address [address] [place] [address] Care Team Providers Name Role Phone Unavailable Primary Care Provider Unavailable Encounter Details Date Type Department Care Team Description 02/27/2015 Hospital Encounter HX [facility] 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 Patient was also given a script for prednisone to help with the swelling. Ordered: OV Est Pt Level 3 - 91458 - 15 min Orders: cephalexin, 500 mg = 1 cap(s), PO, 2xDay, x 10 day(s), # 20 cap(s), 0 Refill(s), Acute, Pharmacy: [facility] predniSONE, 40 mg = 2 tab(s), PO, Daily, x 5 day(s), # 10 tab(s), 0 Refill(s), Acute, Pharmacy: [facility] Electronically Signed By: LEONORA NATHAN MD On: 02/27/2015 08:25 AM Source: [facility] POWERCHART Document Id: [id number] documented in this encounter Miscellaneous Notes Miscellaneous - Roosevelt Rodriges L.PBrittaneyNBrittaney - 02/27/2015 1:00 PM CDT Quality Measures Quality Measures Entered On: 03/07/2015 13:00 CDT Performed On: 02/27/2015 13:00 CDT by ROOSEVELT RODRIGES LPN Depression PHQ-9 Score : 0 ROOSEVELT RODRIGES LPN - 03/07/2015 13:00 CDT [facility] Document Id: [id number] CDT!3 Miscellaneous - Leonora Farias M.D. - 02/27/2015 7:39 AM CDT Work Excuse 27 February 2015 PUNEET FRIED [address] [place] [phone] Dear PUNEET FRIED, You were examined in [...] date: 02/28/2015 Notes: _ Sincerely, LEONORA NATHAN [address] [phone] Electronic Signature Electronically Signed By: LEONORA NATHAN MD On: 27 February 2015 This document has images extracted. Source: [facility] Document Id: [id number] Electronically signed by Roland [facility] Education Program Manager [id number] at 01/17/2017 7:14 PM CDT Miscellaneous - Leonora Farias M.D. - 02/27/2015 7:38 AM CDT Ambulatory Patient Summary [address] 24 [facility] NEHEMIAH Hawk [phone] Visit Information Name: PUNEET FRIED [facility] Number: [id number] Current Date: 02/27/2015 07:38:28 Physicians [...] x 10 day(s) New Routed to [facility] [address] [place] [address] EPINEPHrine (EpiPen Auto-Injector 0.3 mg injectable kit) [...] day x 5 day(s) New Routed to [facility] [address] SUMAtriptan (SUMAtriptan 50 mg oral tablet) 1 [...] if you dont have one. Go to [email or web address] and click on Create Your Account. Then, follow the directions to complete the online form. Youll be asked for your [facility] number which you can find at the top of this document. Your Goals/Additional instructions: Source: [facility] POWERCHART Document Id: [id number] Miscellaneous - Leonora Farias M.D. - 02/27/2015 7:38 AM CDT Ambulatory Discharge Medication List [address] [phone] Visit Information Name: PUNEET FRIED [facility] Number: [id number] Visit Date: 02/27/2015 07:38:26 Attending [...] x 10 day(s) New Routed to [address] [address] EPINEPHrine (EpiPen Auto-Injector 0.3 mg injectable kit) [...] x 5 day(s) New Routed to [address] [address] SUMAtriptan (SUMAtriptan 50 mg oral tablet) 1 [...] MD Signed On:27-FEB-2015 07:38:18 Additional Information: Source: [facility] POWERCHART Document Id: [id number] Miscellaneous - Trace Khan, L.P.N. 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 : No TRACE KHAN [facility] - 02/27/2015 7:10 CDT Subjective Pain Symptoms [...] [facility] - 02/27/2015 7:12 CDT TRACE KHAN [facility] - 02/27/2015 7:10 CDT Recreational Drug Use Grid Drug Use : None TRACE KHAN [facility] - 02/27/2015 7:10 CDT Source: [facility] InsightSquaredCHART Document Id: [id number] CDT!21 documented in this encounter Plan of Treatment Not on filedocumented as of this encounter Procedures Procedure Name Priority Date/Time Associated Diagnosis Comme nts RAPID STREP A Routine 02/27/2015 7:10 AM Results for this SCREEN CDT procedure are i n the results section. documented in this encounter Results (ABNORMAL) Rapid Strep A Screen (02/27/2015 7:10 AM CDT) [facility] gist Method Time Signature HXStrep [...]
--- OUTSIDE RECORDS SUMMARY | 2022-07-17 08:11 | XMS_ITS | Encounter Summary ---
:1985 Author Organization [facility] Address [address] [place] [address] Care Team Providers Name Role Phone Unavailable Primary Care Provider Unavailable Encounter Details Date Type Department Care Team Description 05/10/2014 Hospital Encounter [facility] Oralia San O.D. Social History Tobacco [...] often do you attend oriental orthodox or yazidism More than 4 time s [...] ROACH OD On: 05/10/2014 09:44 AM Source: [facility] POWERCHART Document Id: [id number] documented in this encounter Miscellaneous Notes Miscellaneous - Oralia Roach O.D. - 05/10/2014 9:11 AM CDT Ambulatory Patient Summary [facility] [address] [place], [place] [phone] Visit Information Name: PUNEET FRIED [facility] Number: [id number] Current Date: 05/10/2014 09:11:03 Physicians [...] appointment detail needed. Your Goals/Additional instructions: Source: [facility] POWERCHART Document Id: [id number] YS [facility] - Oralia Roach O.D. 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 Intake/History Adult Human Factors Engineer Intake/History Entered On: 05/10/2014 8:55 CDT Performed On: 05/10/2014 8:55 CDT by RAKEL MARTINEZ Intake Chief Complaint : CONTACT LENS CHECK Height : 158 cm(Converted to: 5 ft 2 inch(es), 62 inch(es)) RAKEL MARTINEZ - 05/10/2014 8:55 CDT General Info Information Given By : Patient Languages : Azeri Is Patient Female and 13-50 no hysterectomy [...] RAKEL MARTINEZ - 05/10/2014 8:55 CDT Source: [facility] [employer] Document Id: [id number] CDT!29 documented in this encounter Plan of Treatment Not on filedocumented as of this encounter Visit Diagnoses Not on filedocumented in this encounter Additional Health Concerns Assessment Noted Time PHQ-9 Depression Total Score: 05/02/2014 9:45 AM CD T documented as of this encounter
--- OUTSIDE RECORDS SUMMARY | 2022-07-17 08:11 | XMS_ITS | Encounter Summary ---
:1985 Author Organization [facility] Address [address] [place] [address] Care Team Providers Name Role Phone Unavailable Primary Care Provider Unavailable Encounter Details Date Type Department Care Team Description 08/02/2013 Hospital Encounter HX NO MAPPING Berny Garcia M.D. [address] [place], [place] [phone] (Wo rk) Social History [...] How often do you attend religious or restorationism More than 4 time s [...]
--- OUTSIDE RECORDS SUMMARY | 2022-07-17 08:11 | XMS_ITS | Encounter Summary ---
:1985 Author Organization [facility] Address [address] [place] [address] Care Team Providers Name Role Phone Unavailable Primary Care Provider Unavailable Encounter Details Date Type Department Care Team Description 03/02/[address] [facility] Berny Llamas M.D. [address] [place], [place] [phone] (Wo rk) Social History [...] How often do you attend orthodoxy or pentecostalism More than 4 time s [...] 03/02/2015 10:41 PM CDT ED Discharge Instructions [address] [place] [address] Name: PUNEET FRIED Date of : 1985 12:00 AM Visit Date: 03/02/2015 10:12 PM [facility] Number: [id number] Address: [address] [place] [phone] Primary Care Provider: ALISON MONACO PA-C IMPORTANT: [facility] in [place] would like to thank you for allowing us to assist you with your healthcare needs. The following includes patient education materials and information regarding your injury/illness. Diagnosis: Strep Throat Pharyngitis Follow-Up Instructions: With: Address: When: ALISON MONACO [address] [place] [address] Business (1) In 2 days 03/04/2015 Comments: [...] with strep throat more comfortable: Try soft, rgjc-dl-pkkvpab foods, such as soup, applesauce, and yogurt. [...] ?? Shortness of breath ?? Rash ?? [id number] Cecil Paez, [address] [place] [address], [place] [address]. All rights reserved. This information is not [...] you dont have one. Go to [email or web address] and click on Create Your Account. Then, follow the directions to complete the online form. Youll be asked for your [facility] number which you can find at [...] document has images extracted. Please consider using [employer] for all your patient education needs. Source: [facility] POWERCHART Document Id: [id number] Kavitha Saha R.N. - 03/02/2015 10:41 PM CDT ED Depart Summary [facility] Emergency Department Clinical Discharge Summary PERSON INFORMATION Name PUNEET FRIED Age 29 Years 1985 12:00 AM Sex Female Language Ecuadorean PCP ALISON MONACO PA-C Marital Status Single Visit Id Visit Reason Facial swelling; UC - Sore Throat; sore throat, facial swelling Specialty Enc Type Emergency Med Service Emergency Medicine Referred by Track Group [facility] ED Discharge 03/02/2015 10:35 PM Tracking Id [id number] Checkout 03/02/2015 10:35 PM Checkin 03/02/2015 10:12 PM Acuity 3 -Urgent Dispo Type * Discharged to Home or Self Care Arrival 03/02/2015 10:12 PM Reg Status Complete LOS 000 00:23 Address: [address] [place] [phone] Comment: PROVIDER INFORMATION Provider Role Provider Contact Time KAVITHA SAHA INDUSTRIAL RADIOGRAPHER Nurse 03/02/15 22:16 BERNY GARCIA MD ED Provider 03/02/15 22:17 DIAGNOSIS Strep Throat Pharyngitis Comment: PATIENT EDUCATION INFORMATION Instructions: Strep Throat Follow up: With: Address: When: ALISON MONACO [address] [place] [address] [phone] Business (0) In 2 days 03/04/2015 Comments: For recheck if not resolving Source: [employer] Document Id: [id number] documented in this encounter ED Notes Kavitha [...] SAHA RN - 03/02/2015 22:40 CDT Source: [employer] Document Id: [id number] CDT!9 Berny Garcia M.D. - 03/02/2015 10:18 [...] and with a positive rapid strep in [place] 2 days ago. She is on Keflex [...] Headache Abuse Tobacco Smoking NOS (305.1) Resolved ([id number]): Resolved on 01/03/2008 at 22 years.. Surgical history: Pap smear ([id number]) on 01/25/2013 at 27 Years. Pap smear ([id number]) on 01/25/2013 at 27 Years.. Family history: [...] Headache / V22.2 / Confirmed Resolved: / [id number]. Physical Examination Vital Signs: Vital Signs 03/02/2015 [...] Stable. Disposition: Discharged: to home. Prescriptions: Prescription Outboard Motor[facility] Pharmacy: Zithromax (Order Processing): 500 mg, PO, Once, Prescription [facility]acy: Zithromax 250 mg oral tablet (Prescribe): [...] GARCIA MD On: 03/02/2015 10:28 PM Source: [facility] [employer] Document Id: [id number]} Kavitha Saha RBrittaneyN. - 03/02/2015 10:17 PM [...] Medical ; Code: 305.1 ; Contributor System: [employer] ; Last Updated: 12/12/2014 9:21 CDT ; [...] Medical ; Code: 784.0 ; Contributor System: [employer] ; Last Updated: 12/12/2014 9:11 CDT ; Life Cycle Status: Active ; Vocabulary: ICD-9-CM ; Comments: - Headache Headache Migraine (ICD-9-CM :346.90 ) Name of Problem: Headache Migraine ; Onset Date: 01/21/2012 ; Recorder: RABIA NATHAN MD; Confirmation: Confirmed ; Classification: Medical ; Code: 346.90 ; Contributor System: [employer] ; Last Updated: 12/12/2014 9:11 CDT ; [...] PNED ; Probability: 0 ; Diagnosis Code: [id number] UC - Sore Throat Date: 03/02/2015 ; Diagnosis Type: Reason For Visit ; Confirmation: Complaint of ; Clinical Dx: UC - Sore Throat ; Classification: Medical ; Clinical Service: Emergency medicine ; Code: PNED ; Probability: 0 ; Diagnosis Code: [id number] Triage Chief Complaint Description : diagnosed with strep on Tues, on Keflex and Prednisone. today left side of face swollen in am, feels like something lodged in throat, hurts to turn head to left Information Given By : Patient Accompanied By : Alone Mode of Arrival ED : Private vehicle, Ambulatory Track : Medical Languages : Ecuadorean Patient Informed of Triage Location : Emergency [...] Acuity : 3 -Urgent Tracking Group : [facility] ED KAVITHA SAHA SHRUTHI 03/02/2015 22:17 [...] SAHA RN - 03/02/2015 22:17 CDT Source: [employer] Document Id: [id number] CDT!84 documented in this encounter Miscellaneous Notes Miscellaneous - Conversion, Historical Provider Ser - 03/02/2015 10:35 PM CDT Coding Summary-Paper Based CODING DATE: 03/14/2015 FINAL [facility] STATUS: * Discharged to Home or Self Care PAYOR: [facility] ADMIT DX: [id number] Acute Pharyngitis REASON FOR [...] SORTO Date Saved: 03/14/2015 02:40 pm Source: [employer] Document Id: [id number] Miscellaneous - Kavitha Saha R.N. - 03/02/2015 [...] SAHA RN - 03/02/2015 22:40 CDT Source: [employer] Document Id: [id number] CDT!8 Miscellaneous - Kavitha Saha R.N. - [...] Control : 5 Lynx Visit Level : 75016 Level 2 Treatments Prior to Arrival : Home treatments KAVITHA SAHA RN - 03/02/2015 22:40 CDT Source: [employer] Document Id: [id number] CDT!18 documented in this encounter Plan of Treatment Not on filedocumented as of this encounter Visit Diagnoses Not on filedocumented in this encounter Additional Health Concerns Assessment Noted Time PHQ-9 Depression Total Score: 11 12/13/2014 9:50 AM CD T documented as of this encounter
--- OUTSIDE RECORDS SUMMARY | 2022-07-17 08:11 | XMS_ITS | Encounter Summary ---
:1985 Author Organization [facility] Address [address] [place] [address] Care Team Providers Name Role Phone Unavailable Primary Care Provider Unavailable Encounter Details Date Type Department Care Team Description 05/04/2014 Hospital Encounter HX [facility] Oralia San O.D. Social History Tobacco [...] How often do you attend confucianism or methodist More than 4 time s [...] ( ORTHO ) Current RX: Sphere Cylinder [place] Add Prism Right Eye ( -2.00 ) [...] ROACH OD On: 05/04/2014 11:27 AM Source: [facility] POWERCHART Document Id: [id number] documented in this encounter H&P Notes Oralia Roach O.D. - 05/04/2014 10:37 AM CDT [id number] The patient is in today noticing some [...] given for new glasses. Trials for Acuvue Saticoy were dispensed along with Biotrue kit. Patient [...] ROACH OD On: 05/07/2014 09:34 AM Source: [facility] MHSDOLBEYNONRADSYS Document Id: [id number] documented in this encounter Miscellaneous Notes Miscellaneous [...] if needed ) ( ) Call for Exterminator Helper ( ) Follow up on Results ( ) Other: PROVIDER: ( ) Call Physician ( ) Call Pharmacist ( ) Call Lab ( ) Other: Special Instructions: Comments: Source: [facility] POWERCHART Document Id: [id number] Electronically signed by Roland [facility] Utilization Management Manager [id number] at 01/19/2017 11:34 AM CDT Miscellaneous - Oralia Roach O.D. - 05/04/2014 11:49 AM CDT Ambulatory Patient Summary [facility] [address] [place] [address] [address] [place], [place] [phone] Visit Information Name: FRIEDPUNEET CLAY CHRISTIANO [facility] Number: [id number] Current Date: 05/04/2014 11:49:30 [...] appointment detail needed. Your Goals/Additional instructions: Source: [facility] POWERCHART Document Id: [id number] Miscellaneous - Oralia Roach O.D. - 05/04/2014 11:49 AM CDT Ambulatory Discharge Medication List [facility] [address] [place], [place] [phone] Visit Information Name: PUNEET FRIED [facility] Number: [id number] Visit Date: 05/04/2014 11:49:29 [...] OD Signed On:04-MAY-2014 11:48:28 Additional Information: Source: [facility] POWERCHART Document Id: [id number] Miscellaneous - Vu Craven C.O.A. 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 Medical Van Driver Intake/History Entered On: 05/04/2014 10:51 CDT Performed On: 05/04/2014 10:51 CDT by VU CRAVEN Intake Chief Complaint : EYE EXAM Height : 158 cm(Converted to: 5 ft 2 inch(es), 62 inch(es)) VU CRAVEN - 05/04/2014 10:51 CDT General Info Information Given By : Patient Languages : Irish Is Patient Female and 13-50 no hysterectomy [...] VU CRAVEN - 05/04/2014 10:51 CDT Source: [employer] Document Id: [id number] CDT!29 documented in this encounter Plan of Treatment Not on filedocumented as of this encounter Visit Diagnoses Not on filedocumented in this encounter Additional Health Concerns Assessment Noted Time PHQ-9 Depression Total Score: 18 05/02/2014 9:45 AM CD T documented as of this encounter
--- OUTSIDE RECORDS SUMMARY | 2022-07-17 08:11 | XMS_ITS | Encounter Summary ---
:1985 Author Organization [facility] Address [address] [place] [address] Care Team Providers Name Role Phone Unavailable Primary Care Provider Unavailable Encounter Details Date Type Department Care Team Description 03/13/2014 Hospital Encounter HX [facility] Michelle Bear M.D. [address] [place] [phone] (Wo rk) Social History Tobacco Use Types [...] How often do you attend taoist or mosque More than 4 time s [...] Bear M.D. - 03/13/2014 1:30 PM CDT [id number] A 28-year-old female is here to establish care. She lives in [place] with the father of her son, who is 6 years old. She states they have been together for about 8 years. They are thinking about perhaps another this fall. She delivered here in [place] [address]ney. Her [...] I would like to refer her to [place], to the bariatric program. I believe that [...] BEAR MD On: 03/14/2014 12:48 PM Source: [facility] MHSDOLBEYNONRADSYS Document Id: [id number] documented in this encounter Miscellaneous Notes Miscellaneous - Nicolette Moise, JOSEFA, C.N.P. - 05/28/2014 2:00 PM CDT Ambulatory Patient Summary [facility] [address] [place], [place] [phone] Visit Information Name: PUNEET FRIED [facility] Number: [id number] Current Date: 05/28/2014 14:00:54 [...] appointment detail needed. Your Goals/Additional instructions: Source: [facility] POWERCHART Document Id: [id number] Miscellaneous - Nicolette Moise APRN, C.N.P. - 05/28/2014 2:00 PM CDT Ambulatory Discharge Medication List [facility] [address] [place], [place] [phone] Visit Information Name: PUNEET FRIED [facility] Number: [id number] Visit Date: 05/28/2014 14:00:53 [...] Signed By: Signed On: Additional Information: Source: [facility] POWERCHART Document Id: [id number] Miscellaneous - Jory Coppola L.P.N. - 03/14/2014 [...] COPPOLA LPN - 03/14/2014 8:25 CDT Source: [employer] Document Id: [id number] CDT!13 Miscellaneous - Jory Coppola L.P.N. - 03/13/2014 1:50 PM CDT Adult Administrative Services Specialist Intake/History Adult Administrative Services Specialist Intake/History Entered On: 03/13/2014 13:53 CDT Performed [...] Information Given By : Patient Languages : Kazakh JORY COPPOLA LPN - 03/13/2014 13:50 CDT [...] COPPOLA LPN - 03/13/2014 13:50 CDT Source: [employer] Document Id: [id number] CDT!37 Miscellaneous - Jory Coppola L.P.N. - [...] Drug Use Grid Drug Use : None ANATSTEPHANIEY Esther JEANETTE - 03/13/2014 13:49 CDT AUDIT Tool How Often Do You Have A Drink : Monthly or less How Many Drinks in a Day When Drinking : 1 or 2 Six or More Drinks On One Occassion : Never Audit Phase 1 Score : 1 ANATSTEPHANIEY Esther JEANETTE - 03/13/2014 13:49 CDT Psychosocial Domestic Abuse Concerns : None Tenriism Preference : No qualifying data available. JORY COPPOLA LPN - 03/13/2014 13:49 CDT Advance Directive Advanced Directives : No JORY COPPOLA LPN - 03/13/2014 13:49 CDT Educ Needs Learning Style Preference Adult Grid Patient : None Family : None JORY COPPOLA LPN - 03/13/2014 13:49 CDT [facility] Document Id: [id number] CDT!40 documented in this encounter Plan of Treatment Not on filedocumented as of this encounter Visit Diagnoses Not on filedocumented in this encounter Additional Health Concerns Assessment Noted Time PHQ-9 Depression Total Score: 11 03/14/2014 8:25 AM CD T documented as of this encounter
--- OUTSIDE RECORDS SUMMARY | 2022-07-17 08:11 | XMS_ITS | Encounter Summary ---
:1985 Author Organization [facility] Address [address] [place] [address] Care Team Providers Name Role Phone Unavailable Primary Care Provider Unavailable Encounter Details Date Type Department Care Team Description 04/07/2013 Hospital Encounter [facility] Ysabel Reyes R.NBrittaney [address] [phone] Social History Tobacco Use Types [...] How often do you attend samaritan or sabianism More than 4 time s [...] Reyes R.N. - 04/07/2013 12:00 AM CDT [id number] Bug bite on Wednesday when she was [...] Allergies reviewed and problem list reviewed. [facility] RWHXTRANSXRTFSYS Document Id: [id number] documented in this encounter Plan of Treatment Not on filedocumented as of this encounter Visit Diagnoses Not on filedocumented in this encounter
--- OUTSIDE RECORDS SUMMARY | 2022-07-17 08:11 | XMS_ITS | Encounter Summary ---
:1985 Author Organization [facility] Address [address] [place] [address] Care Team Providers Name Role Phone Unavailable Primary Care Provider Unavailable Encounter Details Date Type Department Care Team Description 12/13/2014 Hospital Encounter [facility] Maureen Berman P.A.-C., M.S. [address] [place] [phone] (Wo rk) Social History Tobacco Use Types [...] How often do you attend restorationism or restorationist More than 4 time s [...] P.A.-C., M.S. - 12/13/2014 9:40 AM CDT [id number] CHIEF COMPLAINT/REASON FOR VISIT Recheck headaches. HISTORY [...] MONACO PA-C On: 12/20/2014 09:46 AM Source: [facility] MHSDOLBEYNONRADSYS Document Id: [id number] documented in this encounter Nursing Notes Alison [...] open cavity, apply OIL OF CLOVES (available fsje-dmw-dchmuja in drug stores) directly to the tooth to reduce pain. Some pharmacies carry an chmv-efu-fbtqeun toothache kit. This contains a paste, which [...] tooth ?? Difficulty swallowing or breathing ?? [phone], [place] [address]. All rights reserved. This information is not intended as a substitute for professional medical care. Always follow your healthcare professional's instructions. This document has images extracted. Please consider using [employer] for all your patient education needs. Source: [facility] POWERCHART Document Id: [id number] Glen Graf L.P.N. - 12/13/2014 10:15 AM [...] GRAF LPN - 12/13/2014 10:15 CDT Source: [facility] POWERCHART Document Id: [id number] CDT!8 documented in this encounter Miscellaneous Notes [...] 3 Substitutions Allowed Route To Pharmacy - [facility] Other (See Comment) Already done. Signed by [...] 3 Substitutions Allowed Route To Pharmacy - [email or web address] [address] Tablet form not available. Please switch to capsule Source: [facility] POWERCHART Document Id: [id number] Miscellaneous - Alison Berman P.A.-C., M.S. - 12/13/2014 10:41 AM CDT Ambulatory Patient Summary [facility] [address], [address] Marko Fonseca [place] [phone] Visit Information Name: PUNEET FRIED [facility] Number: [id number] Current Date: 12/13/2014 10:41:40 Physicians [...] hours x 7 day(s) New Routed to [place] [address] [place] [phone] HYDROcodone-acetaminophen (Vicodin 5 mg-300 mg oral tablet) [...] after two hours if needed. Routed to [facility] [address] [place] [phone] venlafaxine (venlafaxine 37.5 mg oral tablet, extended release) 1 Tablet(s), Oral, once a day 1 tab daily x 1 week. Then increase to 2 tabs daily as tolerated. New Routed to [place] [address] [place] [phone] Stop Taking the Following Medications: amitriptyline (amitriptyline [...] open cavity, apply OIL OF CLOVES (available izcj-mhm-zokjufy in drug stores) directly to the tooth to reduce pain. Some pharmacies carry an qtkh-eiy-qbeewtw toothache kit. This contains a paste, which [...] tooth ?? Difficulty swallowing or breathing ?? [phone] [place] [address]. All rights reserved. This information is not intended as a substitute for professional medical care. Always follow your healthcare professional's instructions. Your Goals/Additional instructions: This document has images extracted. Please consider using [employer] for all your patient education needs. Source: [facility] POWERCHART Document Id: [id number] Miscellaneous - Alison Berman P.A.-C., M.S. - 12/13/2014 10:41 AM CDT Ambulatory Discharge Medication List [facility] [address], [address] [place], [place] [phone] Visit Information Name: PUNEET FRIED [facility] Number: [id number] Visit Date: 12/13/2014 10:41:39 Attending Provider: ALISON MONACO PA-C Primary Care Provider: MICHELLE BERA MD, AMANDA KAY has been given the [...] hours x 7 day(s) New Routed to [place] [address] [place] [phone] HYDROcodone-acetaminophen (Vicodin 5 mg-300 mg oral tablet) 1 Tablet(s), Oral, every 6 hours as needed for Pain No more than 4,000mg acetaminophen/24hrs New Routed to [place] ibuprofen (ibuprofen 200 mg oral tablet) See Instructions 3-4 tabs prn SUMAtriptan (SUMAtriptan 50 mg oral tablet) 1 Tablet(s), Oral, as directed as needed for Migraine headache Take 1 tablet at onset of headache. Repeat after two hours if needed. Routed to [place] [address] [place] [phone] venlafaxine (venlafaxine 37.5 mg oral tablet, extended release) 1 Tablet(s), Oral, once a day 1 tab daily x 1 week. Then increase to 2 tabs daily as tolerated. New Routed to [place] [address] [place] [phone] Stop Taking the Following Medications: amitriptyline (amitriptyline [...] PA-C Signed On:13-DEC-2014 10:41:02 Additional Information: Source: [facility] POWERCHART Document Id: [id number] Miscellaneous - Glen Graf L.P.N. - 12/13/2014 [...] GRAF LPN - 12/13/2014 9:50 CDT Source: [employer] Document Id: [id number] CDT!13 Miscellaneous - Glen Graf L.P.N. 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 : No LESIA GLEN REID 12/13/2014 9:48 CDT Subjective Pain Symptoms : Yes GLEN GRAF LPN 12/13/2014 9:48 CDT Pain Scale Pain Scale Verbal 0-10 : Open LESIA GLEN REID 12/13/2014 9:48 CDT Pain Pain Assessment Grid Pain 1 Location : Tooth Laterality : Right Intensity : 10 GLEN GRAF LPN 12/13/2014 9:48 CDT Dependent Habits Tobacco Use/Currently [...] GLEN GRAF LPN 12/13/2014 9:48 CDT Source: [employer] Document Id: [id number] CDT!50 documented in this encounter Plan of Treatment Not on filedocumented as of this encounter Visit Diagnoses Not on filedocumented in this encounter Additional Health Concerns Assessment Noted Time PHQ-9 Depression Total Score: 11 12/13/2014 9:50 AM CD T documented as of this encounter
--- OUTSIDE RECORDS SUMMARY | 2022-07-17 08:11 | XMS_ITS | Encounter Summary ---
:1985 Author Organization [facility] Address [address] [place] [address] Care Team Providers Name Role Phone Unavailable Primary Care Provider Unavailable Encounter Details Date Type Department Care Team Description 01/24/2015 - Hospital Encounter HX [facility] ED Rizwan Dean M.D. 01/25/2015 [address] [place] [address] (Wo rk) Social History [...] How often do you attend hoahaoism or adventist More than 4 time s [...] 01/25/2015 12:43 AM CDT ED Discharge Instructions [address] [place] [address] Name: PUNEET FRIED Date of : 1985 12:00 AM Visit Date: 01/24/2015 10:25 PM [facility] Number: [id number] Address: [address] [place] [phone] Primary Care Provider: ALISON MONACO PA-C IMPORTANT: [facility] in [place] would like to thank you for allowing us to assist you with your healthcare needs. The following includes patient education materials and information regarding your injury/illness. Diagnosis: Angioedema Initial; Urticaria Allergic Follow-Up Instructions: With: Address: When: ALISON MONACO [address] [place] [address] Business (1) Within As Needed Comments: Your [...] Colored fluid draining from the wound ?? [phone] [place] [address]. All rights reserved. This information is not intended as a substitute for professional medical care. Always follow your healthcare professional's instructions. Angioedema Angioedema (pronounced mktum-u-bmedk) is a sudden appearance of swollen patches [...] Trouble breathing ?? Severe abdominal pains ?? [phone], [place] [address]. All rights reserved. This information is not [...] a ride home with a responsible republican. IFARIHA AMANDA KAY , or responsible republican have [...] document has images extracted. Please consider using [facility] for all your patient education needs. Source: [facility] POWERCHART Document Id: [id number] Pati Shepard R.N. - 01/25/2015 12:43 AM CDT ED Depart Summary [facility] Emergency Department Clinical Discharge Summary PERSON INFORMATION Name PUNEET FRIED Age 29 Years 1985 12:00 AM Sex Female Language Sammarinese PCP ALISON MONACO PA-C Marital Status Single Visit Id Visit Reason Insect bite and/or sting; ALLERGIC REACTION TO BUG BITE Specialty Enc Type Emergency Med Service Emergency Medicine Referred by Track Group [facility] ED Discharge 01/25/2015 12:35 AM Tracking Id [id number] Checkout 01/25/2015 12:35 AM Checkin 01/24/2015 10:25 PM Acuity 4 -Less Urgent Dispo Type * Discharged to Home or Self Care Arrival 01/24/2015 10:25 PM Reg Status Complete LOS 000 02:10 Address: [address] [place] [phone] Comment: PROVIDER INFORMATION Provider Role Provider Contact Time KAREY PENA DIRECTOR [employer] Nurse 01/24/15 22:32 PATI SHEPARD RN ED Nurse 01/24/15 23:08 SLIM DEAN MD ED Provider 01/24/15 23:37 DIAGNOSIS Angioedema Initial; Urticaria Allergic Comment: PATIENT EDUCATION INFORMATION Instructions: ALLERGIC REACTION, Insect (General); ANGIOEDEMA Follow up: With: Address: When: ALISON MONACO [address] [place] [address] [phone] Bambuser (2) Within As Needed Comments: Source: [facility] POWERCHART Document Id: [id number] documented in this encounter ED Notes Pati [...] SHEPARD RN - 01/25/2015 0:40 CDT Source: [facility] [employer] Document Id: [id number] CDT!7 Slim Dean - 01/24/2015 11:36 PM [...] 300.4 / Confirmed Dysthymic disorder Resolved: / [id number]. Physical Examination Vital Signs: Vital Signs 01/24/2015 [...] Time 01/25/2015 00:35:00, to home. Prescriptions: Prescription Director Plans Pharmacy: EpiPen Auto-Injector 0.3 mg injectable kit [...] DEAN MD On: 01/25/2015 12:36 AM Source: [facility] POWERCHART Document Id: [id number]} Karey Pena, R.N. - 01/24/2015 10:37 PM [...] Medical ; Code: V22.2 ; Contributor System: Rico ; Last Updated: 01/21/2012 9:41 CDT ; Life Cycle Date: 01/12/2012 ; Life Cycle Status: Active ; Responsible Provider: GLEN ACOSTA; Vocabulary: ICD-9-CM Diagnoses(Active) Insect bite and/or sting Date: 01/24/2015 ; Diagnosis Type: Reason For Visit ; Confirmation: Complaint of ; Clinical Dx: Insect bite and/or sting ; Classification: Medical ; Clinical Service: Emergencymedicine ; Code: PNED ; Probability: 0 ; Diagnosis Code: [id number] Triage Chief Complaint Description : 29 year old female with complaints of a bug bite on the left side of the neck. Patient is having hot flashes and SOB at times. Bug bite patient around 0530pm tonight. Information Given By : Patient, Friend Accompanied By : Friend Mode of Arrival ED : Private vehicle Track : Medical Languages : Sammarinese Treatments Prior to Arrival : None Are [...] PENA RN - 01/24/2015 22:37 CDT [facility] Document Id: [id number] CDT!53 documented in this encounter Miscellaneous Notes Miscellaneous - Pati Shepard R.N. - 01/25/2015 12:35 AM CDT Valuables/Belongings Valuables/Belongings Entered On: 01/25/2015 0:41 CDT Performed On: 01/25/2015 0:35 CDT by PATI SHEPARD RN Valuables/Belongings Valuables/Belongings Grid Valuables with Patient Clothes, Patient Valuables : Other: cellphone PATI SHEPARD RN - 01/25/2015 0:41 CDT Source: [facility] [employer] Document Id: [id number] CDT!5 Miscellaneous - Conversion, Historical Provider Ser - 01/25/2015 12:35 AM CDT Coding Summary-Paper Based CODING DATE: 02/07/2015 FINAL [facility] STATUS: * Discharged to Home or [...] ZENG Date Saved: 02/07/2015 11:40 am Source: [facility] [employer] Document Id: [id number] Miscellaneous - Pati Shepard R.N. - 01/25/2015 12:17 AM CDT Communication Note Communication Note Entered On: 01/25/2015 0:17 CDT Performed On: 01/25/2015 0:17 CDT by PATI SHEPARD RN Communication Assessment Communication Note : Feeling better. PATI SHEPARD RN - 01/25/2015 0:17 CDT [facility] Document Id: [id number] CDT!3 Miscellaneous - Pati Shepard R.N. - 01/24/2015 10:25 PM CDT Facility Charge Ticket 2.0 11.0 DX Facility Charge Ticket 2.0 11.0 DX Entered On: 01/25/2015 0:43 CDT Performed On: 01/24/2015 22:25 CDT by PAIT SHEPARD RN Facility Charge Ticket 2.0 11.0 [...] Control : 2 Lynx Visit Level : 10754 Level 2 Treatments Prior to Arrival : None PATI SHEPARD RN - 01/25/2015 0:41 CDT Source: [employer] Document Id: [id number] CDT!18 documented in this encounter Plan of Treatment Not on filedocumented as of this encounter Visit Diagnoses Not on filedocumented in this encounter Additional Health Concerns Assessment Noted Time PHQ-9 Depression Total Score: 11 12/13/2014 9:50 AM CD T documented as of this encounter
--- OUTSIDE RECORDS SUMMARY | 2022-07-17 08:11 | XMS_ITS | Encounter Summary ---
:1985 Author Organization [facility] Address [address] [place] [address] Care Team Providers Name Role Phone Unavailable Primary Care Provider Unavailable Encounter Details Date Type Department Care Team Description 03/05/2015 Hospital Encounter [facility]X [facility] Jono Freedman M.D. [address] [place] [address]21 Social History Tobacco Use Types Packs/Day [...] How often do you attend scientology or roman catholic More than 4 time [...] Zavala M.D. - 03/05/2015 11:30 AM CDT [id number] CHIEF COMPLAINT/REASON FOR VISIT Throat infection. HISTORY OF PRESENT ILLNESS Puneet is a 29-year-old who comes in to see me with a 1-week history of a sore throat. She saw Dr. Alisha black in [place] on 02/27. A throat culture done was [...] left side. She saw Dr. Snyder in [place]. A CT scan suggested a left multiloculated peritonsillar abscess. She has not had a lot of problems with her tonsils previously. She does smoke less than a half a pack of cigarettes per day. She has not had throat infection of this nature previously. New patient questionnaire and medical history in [facility] reviewed. PAST MEDICAL/SURGICAL HISTORY PAST MEDICAL HISTORY: Include a history of migraines. PREVIOUS HEAD AND NECK SURGERIES: None indicated. FAMILY HISTORY Negative for bleeding disorders. ALLERGIES Penicillin. 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 Does not drink alcohol, but does smoke somewhat of less than a pack of cigarettes per day. SYSTEMS REVIEW Positive for headaches. Others are negative. MEDICATIONS Listed and reviewed in [facility]. PHYSICAL EXAMINATION She is afebrile. She [...] Thelma Zavala M.D./robb cc: Parth Snyder M.D. [address] [address] Electronically Signed By: THELMA ZAVALA MD On: 03/05/2015 03:00 PM Source: [facility] MHSDOLBEYNMARGOT Document Id: [id number] documented in this encounter Miscellaneous Notes Telephone Encounter - Thelma Zavala M.D. - 03/11/2015 12:00 AM CDT [id number] Puneet is a 29-year-old who I saw [...] ZAVALA MD On: 03/11/2015 09:42 AM Source: [facility] MHSDOLBEYNONRADSYS Document Id: [id number] Telephone Encounter - Sarina Mark R.N. - [...] is she had any further concerns. Source: [facility] POWERCHART Document Id: [id number] Miscellaneous - Thelma Zavala M.D. - 03/05/2015 12:10 PM CDT Ambulatory Patient Summary [facility] [address], [address] Marko [place]onsec[place] [phone] Visit Information Name: PUNEET FRIED [facility] Number: [id number] Current Date: 03/05/2015 12:10:53 [...] day x 10 day(s) New Routed to [address] [address] EPINEPHrine (EpiPen Auto-Injector 0.3 mg injectable kit) [...] if you dont have one. Go to [email or web address] and click on Create Your Account. Then, follow the directions to complete the online form. Youll be asked for your [facility] number which you can find at the top of this document. Your Goals/Additional instructions: Source: [facility] POWERCHART Document Id: [id number] Miscellaneous - Thelma Zavala M.D. - 03/05/2015 12:10 PM CDT Ambulatory Discharge Medication List [facility] [address], [address] [place] [phone] Visit Information Name: PUNEET FRIED [facility] Number: [id number] Visit Date: 03/05/2015 12:10:51 [...] day x 10 day(s) New Routed to [address] [address] EPINEPHrine (EpiPen Auto-Injector 0.3 mg injectable kit) [...] MD Signed On:05-MAR-2015 12:10:43 Additional Information: Source: [facility] POWERCHART Document Id: [id number] Miscellaneous - Mariaelena Dominguez, R.N. 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 : No MARIAELENA DOMINGUEZ RN - 03/05/2015 11:36 CDT Subjective Pain Symptoms : Yes STEPHENJADAEN RN - 03/05/2015 11:36 CDT Pain Scale Pain Scale Verbal 0-10 : Open STEPHENJADAEN RN - 03/05/2015 11:36 CDT Pain Pain Assessment Grid Pain 1 Location : Throat Laterality : Left Intensity : 7 STEPHENJADAEN RN - 03/05/2015 11:36 CDT Dependent Habits [...] MARIAELENA DOMINGUEZ - 03/05/2015 11:36 CDT Source: [facility] [employer] Document Id: [id number] CDT!41 documented in this encounter Plan of Treatment Not on filedocumented as of this encounter Procedures Procedure Name Priority Date/Time Associated Diagnosis Comme nts BACTERIAL CULTURE, Routine 03/05/2015 12:01 PM Re sults for this AEROBIC CDT procedure are i n the results section. documented in this encounter Results (ABNORMAL) Bacterial Culture, Aerobic (03/05/2015 12:01 PM CDT) Patholo gist Method Time Signature Wound Culture STRINT [...]
--- OUTSIDE RECORDS SUMMARY | 2022-07-17 08:11 | XMS_ITS | Encounter Summary ---
:1985 Author Organization [facility] Address [address] [place] [address] Care Team Providers Name Role Phone Unavailable Primary Care Provider Unavailable Encounter Details Date Type Department Care Team Description 03/15/2014 Hospital Encounter HX [facility] Jessica Bear M.D. [address] [place], [place] [phone] (Wo rk) Social History [...] Results Letter 16 March 2014 PUNEET FRIED [address] [place] [id number] Dear PUNEET FRIED, I am pleased to [...] 03/15/2014 150 - 450 Sincerely, MICHELLE BEAR [address] [place] [phone] Electronic Signature Electronically Signed By: MICHELLE BEAR MD On: 16 March 2014 This document has images extracted. Source: [facility] POWERCHART Document Id: [id number] Electronically signed by Conversion, [facility] Psychological Anthropologist [id number] at 01/19/2017 1:49 PM CDT documented in [...] Erythrocytes 5.16 (H) 3.90 - POWERCHART 5.03 [id number] HX RDW 13.3 11.9 - POWERCHART 15.5 [...] S MGDL eGFR >60 >=60 POWERCHART Black/ [id number] Latvian HXeGFR (MDRD) >60 >=60 POWERCHART [id number] Comment: Results are in mL/min/1.73m CKD Stage [...]
--- OUTSIDE RECORDS SUMMARY | 2022-07-17 08:11 | XMS_ITS | Encounter Summary ---
:1985 Author Organization [facility] Address [address] [place] [address] Care Team Providers Name Role Phone Unavailable Primary Care Provider Unavailable Encounter Details Date Type Department Care Team Description 08/02/2013 Hospital Encounter HX NO MAPPING Berny Garcia M.D. [address] [place], [place] [phone] (Wo rk) Social History [...]
--- OUTSIDE RECORDS SUMMARY | 2022-07-17 08:11 | XMS_ITS | Encounter Summary ---
:1985 Author Organization [facility] Address [address] [place] [address] Care Team Providers Name Role Phone Unavailable Primary Care Provider Unavailable Encounter Details Date Type Department Care Team Description 01/21/2012 Hospital En[facility] [address] [place] [phone] (Wo rk) Social History Tobacco Use [...] How often do you attend religion or mandaeism More than 4 time s [...] Farias M.D. - 01/21/2012 12:00 AM CDT [id number] CHIEF COMPLAINT/REASON FOR VISIT Headache. HISTORY OF [...] has symmetric and coordinated finger tapping and yfog-im-owuh rubbing. Strength is 5 out of 5 [...] NATHAN MD On: 01/26/2012 07:59 AM Source: [facility] MHSDOLBEYNONRADSYS Document Id: [id number] documented in this encounter Miscellaneous Notes Miscellaneous - Leonora Farias M.D. - 01/21/2012 9:53 AM CDT Ambulatory Depart Summary [address] [address] Visit Information Name: PUNEET FRIED Visit Date: [...] your provider for clarification. Additional Information: Source: [facility] POWERCHART Document Id: [id number] Miscellaneous - Leonora Farias M.D. - 01/21/2012 9:53 AM CDT Ambulatory Patient Summary [place] [phone] [place] [address] Visit Information Name: PUNEET FRIED Current Date: [...] No Appointments found Your Goals/Additional instructions: Source: [facility] POWERCHART Document Id: [id number] Miscellaneous - Bessy Herrera, LBrittaneyP.N. 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
--- OUTSIDE RECORDS SUMMARY | 2022-07-17 08:11 | XMS_ITS | Encounter Summary ---
:1985 Author Organization [facility] Address [address] [place] [address] Care Team Providers Name Role Phone Unavailable Primary Care Provider Unavailable Encounter Details Date Type Department Care Team Description 07/31/2014 Hospital Encounter HX [facility] Pavel BELTRAN Obi, M.D. [address] [place] [address] (Wo rk) Social History Tobacco [...] Comments Blood Pressure 154/92 07/31/2014 10:14 AM ASSISTANT ADMINISTRATOR Pulse - - Temperature - - Respiratory Rate - - Oxygen Saturation - - Inhaled Oxygen Concentration - - Weight 143 kg (315 lb 11.2 oz) 07/31/2014 10:14 AM ASSISTANT ADMINISTRATOR Height 158 cm (5' 2.21) 07/31/2014 10:14 AM ASSISTANT ADMINISTRATOR Body Mass Index 57.36 07/31/2014 10:14 AM ASSISTANT ADMINISTRATOR documented in this encounter Procedure Notes Berny [...] CHAU MD On: 07/31/2014 10:33 AM Source: [facility] POWERCHART Document Id: [id number] STANT ADMINISTRATOR documented in this encounter Miscellaneous Notes Miscellaneous - Alison Monsivais L.P.N. 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 : No ALISON MONSIVAIS LPN - 07/31/2014 10:14 ASSISTANT ADMINISTRATOR Subjective Pain Symptoms : No ALISON MONSIVAIS LPN - 07/31/2014 10:14 ASSISTANT ADMINISTRATOR Dependent Habits Tobacco Use/Currently Using : Yes Tobacco Use/Advised to Quit : Yes Exposure to Tobacco Smoke : Patient smokes Smoking Status : Current some day smoker ALISON MONSIVAIS LPN - 07/31/2014 10:14 ASSISTANT ADMINISTRATOR Tobacco Use Grid Type : Cigarettes Cigarette Use Packs/Day : 0.5 Last Use : 04/30/2014 ALISON MONSIVAIS LPN - 07/31/2014 10:14 ASSISTANT ADMINISTRATOR Caffeine Use Grid Caffeine Use : Current Type : Coffee, Soft drinks Frequency : Daily ALISON MONSIVAIS LPN - 07/31/2014 10:14 ASSISTANT ADMINISTRATOR Recreational Drug Use Grid Drug Use : None ALISON MONSIVAIS LPN - 07/31/2014 10:14 ASSISTANT ADMINISTRATOR ID Screen Travel Within Last 21 Days : No ALISON MONSIVAIS LPN - 07/31/2014 10:14 ASSISTANT ADMINISTRATOR Source: [facility] POWERCHART Document Id: [id number] ASSISTANT ADMINISTRATOR!40 STANT ADMINISTRATOR documented in this encounter Plan of Treatment Not on filedocumented as of this encounter Visit Diagnoses Not on filedocumented in this encounter Additional Health Concerns Assessment Noted Time PHQ-9 Depression Total Score: 18 05/02/2014 9:45 AM CD T documented as of this encounter
--- OUTSIDE RECORDS SUMMARY | 2022-07-17 08:11 | XMS_ITS | Encounter Summary ---
:1985 Author Organization [facility] Address [address] [place] [address] Care Team Providers Name Role Phone Unavailable Primary Care Provider Unavailable Encounter Details Date Type Department Care Team Description 11/01/2014 Hospital Encounter [facility] Maureen Berman P.A.-C., M.S. [address] [place] [phone] (Wo rk) Social History Tobacco Use Types [...] often do you attend latter day or jewish More than 4 time s [...] P.A.-C., M.S. - 11/01/2014 9:05 AM CDT [id number] CHIEF COMPLAINT/REASON FOR VISIT Headache management. HISTORY [...] MONACO PA-C On: 11/05/2014 01:01 PM Source: [facility] MHSDOLBEYNONRADSYS Document Id: [id number] documented in this encounter Miscellaneous Notes Miscellaneous - Rosalind Berman P.A.-C., M.S. - 11/01/2014 10:51 AM CDT Normal Results Letter 01 November 2014 PUNEET FRIED [address] [place] [address] [id number] Dear PUNEET FRIED, I am pleased to [...] 11/01/2014 150 - 450 Sincerely, ROSALIND MONACO [address] [place] [address] Electronic Signature Electronically Signed By: ROSALIND MONACO PA-C On: 01 November 2014 This document has images extracted. Source: [facility] POWERCHART Document Id: [id number] Electronically signed by Conversion, [facility] [place] Roller [id number] at 01/18/2017 5:27 PM CDT Miscellaneous - Conversion, Historical Provider Ser - 11/01/2014 9:12 AM CDT Adult Cost Control Specialist Intake/History Adult Cost Control Specialist Intake/History Entered On: 11/01/2014 9:14 CDT Performed On: 11/01/2014 9:12 CDT by FRANCIEИРИНАBARBARA Nena [facility] Intake Chief Complaint : headache management LMP [...] Mass Index : 57.68 kg/m2 BARBARA VALLES [facility] - 11/01/2014 9:12 CDT General Info Information Given By : Patient Languages : Northern Irish Is Patient Female and 13-50 no hysterectomy : Yes Status : Patient denies Are you ? : No BARBARA VALLES Nena [facility] - 11/01/2014 9:12 CDT Subjective Pain Symptoms : Yes FRANCIEИРИНАBARBARA Nena [facility] - 11/01/2014 9:12 CDT Pain Scale Pain Scale Verbal 0-10 : Open BARBARA VALLES Nena [facility] - 11/01/2014 9:12 CDT Pain Pain Assessment Grid Pain 1 Location : Head Intensity : 8 BARBARA VALLES Nena [facility] - 11/01/2014 9:12 CDT Dependent Habits Tobacco Use/Currently Using : Yes Tobacco Use/Advised to Quit : Yes Exposure to Tobacco Smoke : Patient smokes Smoking Status : Current every day smoker BARBARA VALLES Nena [facility] - 11/01/2014 9:12 CDT Tobacco Use Grid Type : Cigarettes Cigarette Use Packs/Day : 0.5 Last Use : 04/30/2014 FRANCIEBARBARA GIFFORD [facility] - 11/01/2014 9:12 CDT Caffeine Use Grid Caffeine Use : Current Type : Coffee, Soft drinks Frequency : Daily BARBARA VALLES [facility] - 11/01/2014 9:12 CDT Recreational Drug Use Grid Drug Use : None BARBARA VALLES [facility] - 11/01/2014 9:12 CDT ID Screen Travel Within Last 21 Days : No Contact with someone with Ebola : No BARBARA VALLES [facility] - 11/01/2014 9:12 CDT Source: [facility] POWERCHART Document Id: [id number] CDT!50 documented in this encounter Plan of [...] X109L Erythrocytes 4.74 3.90 - 5.03 POWERCHART D9679A HX RDW 13.2 11.9 - 15.5 POWERCHART [...]
--- OUTSIDE RECORDS SUMMARY | 2022-07-17 08:11 | XMS_ITS | Encounter Summary ---
:1985 Author Organization [facility] Address [address] [place] [address] Care Team Providers Name Role Phone Unavailable [...] How often do you attend taoism or rastafari More than 4 time s [...]
--- OUTSIDE RECORDS SUMMARY | 2022-07-17 08:11 | XMS_ITS | Encounter Summary ---
:1985 Author Organization [facility] Address [address] [place] [address] Care Team Providers Name Role Phone Unavailable Primary Care Provider Unavailable Encounter Details Date Type Department Care Team Description 05/28/2014 Hospital Encounter HX [facility] Jalen Nesbitt, JOSEFA, C.N.P., D. N.P. [address] [place] [address] (Wo rk) Social History Tobacco [...] How often do you attend baptist or christianity More than 4 time s [...] APRN, C.N.P. - 05/28/2014 2:27 PM CDT [id number] CHIEF COMPLAINT/REASON FOR VISIT Cough and cold [...] Pino/robb Electronically Signed By: JALEN NESBITT RN, SPRING TIER On: 05/30/2014 08:27 AM Source: [facility] MHSDOLBEYNONRADSYS Document Id: [id number] documented in this encounter Miscellaneous Notes Miscellaneous - Jude Cardona L.P.N. - 05/28/2014 2:31 PM CDT Adult Color Paste Mixer Intake/History Adult Color Paste Mixer Intake/History Entered On: 05/28/2014 14:32 CDT Performed [...] 05/28/2014 14:31 CDT General Info Languages : Uruguayan Is Patient Female and 13-50 no hysterectomy [...] CARDONA LPN - 05/28/2014 14:31 CDT Source: D2S Document Id: [id number] CDT!39 documented in this encounter Plan of Treatment Not on filedocumented as of this encounter Visit Diagnoses Not on filedocumented in this encounter Additional Health Concerns Assessment Noted Time PHQ-9 Depression Total Score: 18 05/02/2014 9:45 AM CD T documented as of this encounter
--- OUTSIDE RECORDS SUMMARY | 2022-07-17 08:12 | XMS_ITS | Encounter Summary ---
:1985 Author Organization [facility] Address [address] [place] [address] Care Team Providers Name Role Phone Unavailable [...] How often do you attend anglican or restorationism More than 4 time s [...] Provider Ser - 02/17/2011 12:00 AM CDT [id number] LETTER Carol Juarez [address] 836[address] [facility] [address] [facility] February 17, 2011 Dear Carol: Our records [...] please call at your earliest convenience at [phone] or, toll-free at . Thank you, [facility] Source: [facility] Document Id: [id number] documented in this encounter Plan of Treatment Not on filedocumented as of this encounter Visit Diagnoses Not on filedocumented in this encounter
--- OUTSIDE RECORDS SUMMARY | 2022-07-17 08:12 | XMS_ITS | Encounter Summary ---
:1985 Author Organization [facility] Address [address] [place] [address] Care Team Providers Name Role Phone Unavailable [...] How often do you attend mormon or mandaeism More than 4 time s [...] Historical Provider Ser - 09/08/2011 12:00 AM SALES OPERATIONS CONSULTANT [id number] LETTER Carol Juarez [address] [place] [phone] [facility] September 08, 2011 Dear Carol: [...] keep this appointment, please call the [facility] Department as soon as possible at or toll-free to reschedule or cancel. We look forward to hearing from you. Thank you, [facility] Source: [facility] RWHXTRANSXRTFSYS Document Id: [id number] documented in this encounter Plan of Treatment Not on filedocumented as of this encounter Visit Diagnoses Not on filedocumented in this encounter
--- OUTSIDE RECORDS SUMMARY | 2022-07-17 08:12 | XMS_ITS | Encounter Summary ---
:1985 Author Organization [facility] Address [address] [place] [address] Care Team Providers Name Role Phone Unavailable [...] How often do you attend quaker or latter-day More than 4 time s [...] Historical Provider Ser - 08/17/2011 12:00 AM ENTREPRENEURIAL FINANCE PROFESSOR [id number] LETTER Carol Juarez [facility] [address] [facility] [address] [facility] August 17, 2011 Dear Carol: Our records indicate that you recently cancelled your appointment with Kaye Magallanes, Ph.D., L.P.. Thank you for notifying our office. Your next scheduled appointment is: August at 3:00 PM If you are unable to keep this appointment, please call the [facility] Department at your earliest convenience at or toll-free at to or cancel or reschedule. We look forward to hearing from you. Thank you, [facility] Source: [facility] Document Id: [id number] documented in this encounter Plan of Treatment Not on filedocumented as of this encounter Visit Diagnoses Not on filedocumented in this encounter
--- OUTSIDE RECORDS SUMMARY | 2022-07-17 08:12 | XMS_ITS | Encounter Summary ---
:1985 Author Organization [facility] Address [address] [place] [address] Care Team Providers Name Role Phone Unavailable [...] How often do you attend gnosticist or muslim More than 4 time s [...]
--- OUTSIDE RECORDS SUMMARY | 2022-07-17 08:12 | XMS_ITS | Encounter Summary ---
:1985 Author Organization [facility] Address [address] [place] [address] Care Team Providers Name Role Phone Unavailable [...] How often do you attend uatsdin or sabianist More than 4 time s [...]
--- OUTSIDE RECORDS SUMMARY | 2022-07-17 08:12 | XMS_ITS | Encounter Summary ---
:1985 Author Organization [facility] Address [address] [place] [address] Care Team Providers Name Role Phone Unavailable Primary Care Provider Unavailable Encounter Details Date Type Department Care Team Description 08/28/2011 Hospital Encounter HX NO MAPPING Nelson Bernal M.D. [address] [place] [phone] (Wo rk) Social History Tobacco [...] How often do you attend hoahaoism or druze More than 4 time s [...]
--- OUTSIDE RECORDS SUMMARY | 2022-07-17 08:12 | XMS_ITS | Encounter Summary ---
:1985 Author Organization [facility] Address [address] [place] [address] Care Team Providers Name Role Phone Unavailable [...] How often do you attend orthodox or mosque More than 4 time s [...]
--- OUTSIDE RECORDS SUMMARY | 2022-07-17 08:12 | XMS_ITS | Encounter Summary ---
:1985 Author Organization [facility] Address [address] [place] [address] Care Team Providers Name Role Phone Unavailable Primary Care Provider Unavailable Encounter Details Date Type Department Care Team Description 07/09/2011 Hospital Encounter HX [facility] Yamel Koch M.D. [address] [place] [address] (Wo rk) Social History Tobacco [...] How often do you attend buddhist or latter-day More than 4 time s [...] Historical Provider Ser - 07/09/2011 12:00 AM ENGLISH COMPOSITION INSTRUCTOR [id number] Carol Juarez [address] [place] [phone] [facility] July 09, 2011 Dear Carol Juarez, APPOINTMENT REMINDER: Our record indicates that it is time for you to be seen for an office visit with Venu Yousif M.D. You may call our office at [phone] to schedule an appointment for your six (6) month follow-up visit. Please disregard this notice if you have already made an appointment. Sincerely, [facility] Source: [facility] Document Id: [id number] documented in this encounter Plan of Treatment Not on filedocumented as of this encounter Visit Diagnoses Not on filedocumented in this encounter
--- OUTSIDE RECORDS SUMMARY | 2022-07-17 08:12 | XMS_ITS | Encounter Summary ---
:1985 Author Organization [facility] Address [address] [place] [address] Care Team Providers Name Role Phone Unavailable Primary Care Provider Unavailable Encounter Details Date Type Department Care Team Description 08/28/2011 Hospital Encounter HX [facility] Celia Schwab RRoverto Social History Tobacco [...] How often do you attend taoist or yazidi More than 4 time s [...] Dejesus R.N. - 08/28/2011 12:00 AM CST [id number] Appointment requested for: check my IUD Subjective [...] Obstetrics &Gynecology page 261, 264 Appointment scheduled: automatic grinding machine operator today Source: [facility] RWHXTRANSXRTFSYS Document Id: [id number] documented in this encounter Plan of Treatment Not on filedocumented as of this encounter Visit Diagnoses Not on filedocumented in this encounter
--- OUTSIDE RECORDS SUMMARY | 2022-07-17 08:12 | XMS_ITS | Encounter Summary ---
:1985 Author Organization [facility] Address [address] [place] [address] Care Team Providers Name Role Phone Unavailable [...] How often do you attend mu-ism or judaism More than 4 time s [...]
--- OUTSIDE RECORDS SUMMARY | 2022-07-17 08:12 | XMS_ITS | Encounter Summary ---
:[address] [facility] Address [address] [place] [address] Care Team Providers Name Role Phone Unavailable [...] How often do you attend faith or rastafari More than 4 time s [...]
--- OUTSIDE RECORDS SUMMARY | 2022-07-17 08:12 | XMS_ITS | Encounter Summary ---
:1985 Author Organization [facility] Address [address] [place] [address] Care Team Providers Name Role Phone Unavailable [...] How often do you attend hoahaoism or anglican More than 4 time s [...]
--- OUTSIDE RECORDS SUMMARY | 2022-07-17 08:12 | XMS_ITS | Encounter Summary ---
:1985 Author Organization [facility] Address [address] [place] [address] Care Team Providers Name Role Phone Unavailable [...] How often do you attend sabianism or sabianism More than 4 time s [...] Marisol Couch - 12/08/2011 12:00 AM CDT [id number] MARIA T Dowell [address] [address] [facility] December 08, 2011 Dear Carol: Our records indicate that you recently cancelled your appointment with Kaye Magallanes, Ph.D., L.P.. Thank you for notifying our office. Your next scheduled appointment is: Friday, December 23, 2011 at 12:00 PM If you are unable to keep this appointment, please call the [facility] Department at your earliest convenience at or toll-free at to or cancel or reschedule. We look forward to hearing from you. Thank you, [facility] Source: [facility]RT[facility] Document Id: [id number] documented in this encounter Plan of Treatment Not on filedocumented as of this encounter Visit Diagnoses Not on filedocumented in this encounter
--- OUTSIDE RECORDS SUMMARY | 2022-07-17 08:12 | XMS_ITS | Encounter Summary ---
:1985 Author Organization [facility] Address [address] [place] [address] Care Team Providers Name Role Phone Unavailable [...] How often do you attend adventism or voodoo More than 4 time s [...]
--- OUTSIDE RECORDS SUMMARY | 2022-07-17 08:12 | XMS_ITS | Encounter Summary ---
:1985 Author Organization [facility] Address [address] [place] [address] Care Team Providers Name Role Phone Unavailable Primary Care Provider Unavailable Encounter Details Date Type Department Care Team Description 08/28/2011 Hospital Encounter [facility]X [facility] Jairon Wolf M.D. [address] [place] [phone] (Wo rk) Social History Tobacco [...] How often do you attend jewish or judaism More than 4 time s [...] Roberts M.D. - 08/28/2011 2:10 PM CST [id number] CC: follow up ER visit HPI: Carol [...] negative. GI: negative. BREAST: negative. : negative. MEDICAL ASSISTANT FLOAT: no breast pain or new or enlarging lumps on self exam. CV: negative. PULMONARY: No shortness of breath, dyspnea on exertion, cough, or hemoptysis. MUSCULOSKELETAL: negative. PSYCH: negative. PHYSICAL EXAM: This is a well-developed, well-nourished female in no apparent distress. Vitals: BP 126/78 Ht 1.588 m (5' 2.5) Wt 122.244 kg (269 lb 8 oz) BMI 48.51 kg/m2 Source: [facility]RT[facility] Document Id: [id number] Electronically signed by Conversion, [facility] Program Manager [id number] at 01/23/2017 2:30 PM CDT documented in this encounter Miscellaneous Notes Miscellaneous - Mary Teran L.PBrittaneyN. - 08/28/2011 2:10 PM CST [id number] Carol Juarez [address] [facility] [phone] [facility] August 31, 2011 Dear Ms. Juarez: I am writing to inform you the results of the laboratory tests you had done during your recent visitto the clinic. Your results included : STD tests (chlamydia and gonorrhea) were all negative. It was a pleasure to see you in the clinic. If you have any further questions or problems, please contact our office at [phone]. Sincerely, Dr Obie Roberts Dept. CERTIFIED ORTHOTIC FITTER [facility] Source: [facility]RT[facility] Document Id: [id number] Electronically signed by Conversion, [facility] Program Manager [id number] at 01/23/2017 2:30 PM CDT documented in this encounter Plan of Treatment Not on filedocumented as of this encounter Procedures Procedure Name Priority Date/Time Associated Comments Diagnosis HX SN - SPEC - Routine 08/30/2011 3:07 PM Results for this DESCRIPTION HELPDESK TECHNICIAN procedure are i n the results section. HX SN - SPEC - Routine 08/30/2011 3:07 PM Results for this DESCRIPTION HELPDESK TECHNICIAN procedure are i n the results section. HX CHLAMYDIA Routine 08/30/2011 3:07 PM Results f or this TRACHOMATIS AMPLIFIED HELPDESK TECHNICIAN proced ure are in DNA-ID the results section. CHLAMYDIA TRACHOMATIS Routine 08/30/2011 3:07 PM Results for this AMPLIFIED RNA HELPDESK TECHNICIAN procedure are in the results section. documented in this encounter Results Chlamydia trachomatis Amplified RNA (08/30/2011 3:07 PM HELPDESK TECHNICIAN) Specimen (Source) Anatomical Collection Method Collection Time Re ceived Time Location / / Volume Laterality 08/30/2011 3:07 PM HELPDESK TECHNICIAN Narrative [facility] - 10/23/19 14 7:05 PM HELPDESK TECHNICIAN Negative for N. gonorrhoeae rRNA by lan specialist mediated amplification. A negative result by lan specialist media pipe amplification does not preclude the presence of N. gonorrhoeae infection bec ause results are dependent on proper and adequate collection, absence of inhi bitors, and sufficient rRNA to be detected. Historical Provider LAB MICROBIOLOGY - GENERAL O RDERABLES Performing Organization Address City/[facility]/ZIP Code Phon e Number [facility] HX SN - SPEC - DESCRIPTION (08/30/2011 3:07 PM HELPDESK TECHNICIAN) [facility] [place] [facility] Method Time Signature HXSPECIMAN Endocervical [facility] Specimen (Source) Anatomical Collection Method Collection Time Re ceived Time Location / / Volume Laterality 08/30/2011 3:07 PM HELPDESK TECHNICIAN Historical Provider LAB HISTORICAL ORDERS Performing Organization Address [facility] Phon e Number [facility] HX CHLAMYDIA TRACHOMATIS AMPLIFIED DNA-ID (08/30/2011 3:07 PM HELPDESK TECHNICIAN) Specimen (Source) Anatomical Collection Method Collection Time Re ceived Time Location / / Volume Laterality 08/30/2011 3:07 PM HELPDESK TECHNICIAN Narrative [facility] - 10/23/19 14 7:05 PM HELPDESK TECHNICIAN Negative for C. trachomatis rRNA by lan specialist mediated amplification. A negative result by lan specialist media pipe amplification does not preclude the presence of C. trachomatis infection bec ause results are dependent on proper and adequate collection, absence of inhi bitors, and sufficient rRNA to be detected. Historical Provider LAB HISTORICAL ORDERS Performing Organization Address City/[facility]/ZIP Code Phon e Number [facility] HX SN - SPEC - DESCRIPTION (08/30/2011 3:07 PM HELPDESK TECHNICIAN) [facility] [place] [facility] Method Time Signature HXSPECIMAN Endocervical [facility] Specimen (Source) Anatomical Collection Method Collection Time Re ceived Time Location / / Volume Laterality 08/30/2011 3:07 PM HELPDESK TECHNICIAN Historical Provider LAB HISTORICAL ORDERS Performing Organization Address City/[facility]/ZIP Code Phon e Number [facility] documented in this encounter Visit Diagnoses Not on filedocumented in this encounter
--- OUTSIDE RECORDS SUMMARY | 2022-07-17 08:12 | XMS_ITS | Encounter Summary ---
:1985 Author Organization [facility] Address [address] [place] [address] Care Team Providers Name Role Phone Unavailable Primary Care Provider Unavailable Encounter Details Date Type Department Care Team Description 01/06/2011 Hospital Encounter [facility]X [facility] Provider, Historic al Social History Tobacco [...]
--- OUTSIDE RECORDS SUMMARY | 2022-07-17 08:12 | XMS_ITS | Encounter Summary ---
:1985 Author Organization [facility] Address [address] [place] [address] Care Team Providers Name Role Phone Unavailable [...]
--- OUTSIDE RECORDS SUMMARY | 2022-07-17 08:12 | XMS_ITS | Encounter Summary ---
:1985 Author Organization [facility] Address [address] [place] [address] Care Team Providers Name Role Phone Unavailable [...] How often do you attend quaker or protestant More than 4 time s [...]
--- OUTSIDE RECORDS SUMMARY | 2022-07-17 08:12 | XMS_ITS | Encounter Summary ---
:1985 Author Organization [facility] Address [address] [place] [address] Care Team Providers Name Role Phone Unavailable [...] How often do you attend mormon or voodoo More than 4 time s [...]
--- OUTSIDE RECORDS SUMMARY | 2022-07-17 08:12 | XMS_ITS | Encounter Summary ---
:1985 Author Organization [facility] Address [address] [place] [address] Care Team Providers Name Role Phone Unavailable [...] How often do you attend latter-day or restorationism More than 4 time s [...]
--- OUTSIDE RECORDS SUMMARY | 2022-07-17 08:12 | XMS_ITS | Encounter Summary ---
:1985 Author Organization [facility] Address [address] [place] [address] Care Team Providers Name Role Phone Unavailable Primary Care Provider Unavailable Encounter Details Date Type Department Care Team Description 01/12/2012 Hospital Encounter HX [facility] Gildardo Marvin M.D. [address] [place] [phone] (Wo rk) Social History Tobacco Use [...] Marvin M.D. - 01/12/2012 12:00 AM CDT [id number] IMPRESSION/REPORT/PLAN 1. Eustachian tube dysfunction. 2. Headache. [...] MARVIN MD On: 01/15/2012 10:03 AM Source: [facility] MH[facility]BEY[facility] Document Id: [id number] documented in this encounter Miscellaneous Notes Miscellaneous - Vinicio Marvin M.D. - 01/12/2012 6:46 PM CDT Ambulatory Depart Summary [address] [address] Visit Information Name: PUNEET FRIED Visit Date: [...] your provider for clarification. Additional Information: Source: [facility] POWERCHART Document Id: [id number] Miscellaneous - Vinicio Marvin M.D. - 01/12/2012 6:46 PM CDT Ambulatory Patient Summary [address] [address] Visit Information Name: PUNEET FRIED Current Date: [...] No Appointments found Your Goals/Additional instructions: Source: [facility] POWERCHART Document Id: [id number] Miscellaneous - Josephine Acosta L.PBrittaneyN. - 01/12/2012 [...] KARLA JOSEPHINE - 01/12/2012 18:07 CDT [facility] [employer]CHART Document Id: [id number] CDT!24 Miscellaneous - Josephine Acosta L.P.N. - 01/12/2012 6:01 PM CDT Adult Stamp Classifier Intake/History Adult Stamp Classifier Intake/History Entered On: 01/12/2012 18:06 CDT Performed [...] ACOSTA - 01/12/2012 18:01 CDT Allergy Source: [facility] [employer]CHART Document Id: [id number] CDT!33 documented in this encounter Plan of Treatment Not on filedocumented as of this encounter Visit Diagnoses Not on filedocumented in this encounter
--- OUTSIDE RECORDS SUMMARY | 2022-07-17 08:12 | XMS_ITS | Encounter Summary ---
:1985 Author Organization [facility] Address [address] [place] [address] Care Team Providers Name Role Phone Unavailable Primary Care Provider Unavailable Encounter Details Date Type Department Care Team Description 07/16/2010 Hospital [facility] Yamel Koch M.D. [address] [place] [address] (Wo rk) Social History Tobacco [...] How often do you attend synagogue or jehovah's witness More than 4 time [...] Giang M.D. - 07/16/2010 10:30 AM CST [id number] Chief Complaint: Chief Complaint Patient presents with [...] psychotherapy. follow up in 1 month. Source: [facility] RWMCHXTRANSXRTFSYS Document Id: [id number] Electronically signed by Roland, [facility] Glass Presser [id number] at 01/24/2017 1:07 PM CDT documented in this encounter Plan of Treatment Not on filedocumented as of this encounter Visit Diagnoses Not on filedocumented in this encounter
--- OUTSIDE RECORDS SUMMARY | 2022-07-17 08:12 | XMS_ITS | Encounter Summary ---
:1985 Author Organization [facility] Address [address] [place] [address] Care Team Providers Name Role Phone Unavailable [...] How often do you attend baptist or episcopal More than 4 time s [...]
--- OUTSIDE RECORDS SUMMARY | 2022-07-17 08:12 | XMS_ITS | Encounter Summary ---
:1985 Author Organization [facility] Address [address] [place] [address] Care Team Providers Name Role Phone Unavailable Primary Care Provider Unavailable Encounter Details Date Type Department Care Team Description 08/28/2011 Hospital Encounter HX NO MAPPING Nelson Bernal M.D. [address] [place] [phone] (Wo rk) Social History Tobacco [...] How often do you attend yarsani or christian More than 4 time s [...]
--- OUTSIDE RECORDS SUMMARY | 2022-07-17 08:12 | XMS_ITS | Encounter Summary ---
:1985 Author Organization [facility] Address [address] [place] [address] Care Team Providers Name Role Phone Unavailable Primary Care Provider Unavailable Encounter Details Date Type Department Care Team Description 08/28/2010 Hospital Encounter HX [facility] Yamel Koch M.D. [address] [place] [address] (Wo rk) Social History Tobacco [...] Giang M.D. - 08/28/2010 8:30 AM CST [id number] Chief Complaint: Chief Complaint Patient presents with [...] Wellbutrin. follow up in 1 month. Source: [facility] RWMCHXTRANSXRTFSYS Document Id: [id number] Electronically signed by Conversion, [facility] Slitter And Rewinder [id number] at 01/24/2017 12:51 AM CDT documented in this encounter Plan of Treatment Not on filedocumented as of this encounter Visit Diagnoses Not on filedocumented in this encounter
--- OUTSIDE RECORDS SUMMARY | 2022-07-17 08:12 | XMS_ITS | Encounter Summary ---
:1985 Author Organization [facility] Address [address] [place] [address] Care Team Providers Name Role Phone Unavailable [...] How often do you attend sabianism or rastafarian More than 4 time s [...] Gregory Grewal - 10/13/2010 5:00 PM CST [id number] Adult female smoker had a fever yesterday [...] or shortness of breath. HENOK Garcia/jayson Source: [facility] RWHXTRANSXSYS Document Id: [id number] documented in this encounter Plan of Treatment Not on filedocumented as of this encounter Visit Diagnoses Not on filedocumented in this encounter
--- OUTSIDE RECORDS SUMMARY | 2022-07-17 08:12 | XMS_ITS | Encounter Summary ---
:1985 Author Organization [facility] Address [address] [place] [address] Care Team Providers Name Role Phone Unavailable Primary Care Provider Unavailable Encounter Details Date Type Department Care Team Description 09/29/[address] [facility] Yamel Koch M.D. [address] [place] [address] (Wo rk) Social History Tobacco [...] How often do you attend lutheran or pentecostal More than 4 time s [...] Giang M.D. - 09/29/2010 9:00 AM CST [id number] Chief Complaint: Chief Complaint Patient presents with [...] Rating was 13, which is improved. Source: [facility] RWMCHXTRANSXRTFSYS Document Id: [id number] Electronically signed by Roland, [facility] Consumer Advocate [id number] at 01/23/2017 9:40 PM CDT documented in this encounter Plan of Treatment Not on filedocumented as of this encounter Visit Diagnoses Not on filedocumented in this encounter
--- OUTSIDE RECORDS SUMMARY | 2022-07-17 08:12 | XMS_ITS | Encounter Summary ---
:1985 Author Organization [facility] Address [address] [place] [address] Care Team Providers Name Role Phone Unavailable [...] often do you attend latter day or baptist More than 4 time s [...]
--- OUTSIDE RECORDS SUMMARY | 2022-07-17 08:12 | XMS_ITS | Encounter Summary ---
:1985 Author Organization [facility] Address [address] [place] [address] Care Team Providers Name Role Phone Unavailable [...] How often do you attend christian or bahai More than 4 time s [...]
--- OUTSIDE RECORDS SUMMARY | 2022-07-17 08:12 | XMS_ITS | Encounter Summary ---
:1985 Author Organization [facility] Address [address] [place] [address] Care Team Providers Name Role Phone Unavailable Primary Care Provider Unavailable Encounter Details Date Type Department Care Team Description 01/06/2011 Hospital Encounter HX [facility] Yamel Koch M.D. [address] [place] [address] (Wo rk) Social History Tobacco [...] How often do you attend hinduism or rastafari More than 4 time s [...] Giang M.D. - 01/06/2011 10:45 AM CDT [id number] Chief Complaint Patient presents with Headache talk [...] future for headaches, if not improved. Source: [facility] Document Id: [id number] Electronically signed by Roland, [facility] Surgery Tech [id number] at 01/24/2017 6:23 AM CDT documented in this encounter Plan of Treatment Not on filedocumented as of this encounter Visit Diagnoses Not on filedocumented in this encounter
--- OUTSIDE RECORDS SUMMARY | 2022-07-17 08:12 | XMS_ITS | Encounter Summary ---
:1985 Author Organization [facility] Address [address] [place] [address] Care Team Providers Name Role Phone Unavailable [...] How often do you attend anglican or latter day More than 4 time [...] Provider Ser - 11/13/2010 12:00 AM CDT [id number] MARIA T Juarez [address] [id number] [facility] [address] [facility] November 13, 2010 Dear Carol: Our records indicate that you recently cancelled your appointment with Kaye Magallanes, Ph.D., L.P.. Thank you for notifying our office. Your next scheduled appointment is: Sunday, November 28, 2010 at 11:00 AM If you are unable to keep this appointment, please call the [facility] Health Department at your earliest convenience at or toll-free at to or cancel or reschedule. We look forward to hearing from you. Thank you, [facility] Source: [facility] Document Id: [id number] documented in this encounter Plan of Treatment Not on filedocumented as of this encounter Visit Diagnoses Not on filedocumented in this encounter
--- OUTSIDE RECORDS SUMMARY | 2022-07-17 08:12 | XMS_ITS | Encounter Summary ---
:1985 Author Organization [facility] Address [address] [place] [address] Care Team Providers Name Role Phone Unavailable [...] How often do you attend baptism or congregational More than 4 time s [...]
--- OUTSIDE RECORDS SUMMARY | 2022-07-17 08:12 | XMS_ITS | Encounter Summary ---
:1985 Author Organization [facility] Address [address] [place] [address] Care Team Providers Name Role Phone Unavailable [...] How often do you attend adventism or gnosticist More than 4 time s [...]
--- OUTSIDE RECORDS SUMMARY | 2022-07-17 08:12 | XMS_ITS | Encounter Summary ---
:[address] [facility] Address [address] [place] [address] Care Team Providers Name Role Phone Unavailable [...] Marisol Couch - 08/11/2011 12:00 AM CST [id number] MARIA T Dowell [address] [address] [facility] August 11, 2011 Dear Carol: Our records indicate that you recently cancelled your appointment with Kaye Magallanes, Ph.D., L.P.. Thank you for notifying our office. Your next scheduled appointment is: Thursday, August 18, 2011 at 10:00 AM If you are unable to keep this appointment, please call the [facility] Department at your earliest convenience at or toll-free at to or cancel or reschedule. We look forward to hearing from you. Thank you, [facility] Source: [facility] Document Id: [id number] Electronically signed by Conversion, [facility] Director Clinical Pharmacology [id number] at 01/24/2017 1:37 AM CDT documented in this encounter Plan of Treatment Not on filedocumented as of this encounter Visit Diagnoses Not on filedocumented in this encounter
--- OUTSIDE RECORDS SUMMARY | 2022-07-17 08:13 | XMS_ITS | Encounter Summary ---
:1985 Author Organization [facility] Address [address] [place] [address] Care Team Providers Name Role Phone Unavailable Primary Care Provider Unavailable Encounter Details Date Type Department Care Team Description 05/19/2009 Hospital Encounter [facility] INPT/OBSRV Chon Babin M.D. [address] [place], [place] [phone] (Wo rk) Social History Tobacco Use Types [...] often do you attend latter day or gnosticism More than 4 time s [...]
--- OUTSIDE RECORDS SUMMARY | 2022-07-17 08:13 | XMS_ITS | Encounter Summary ---
:[address] [facility] Address [address] [place] [address] Care Team Providers Name Role Phone Unavailable [...] How often do you attend zoroastrian or quaker More than 4 time s [...]
--- OUTSIDE RECORDS SUMMARY | 2022-07-17 08:13 | XMS_ITS | Encounter Summary ---
:1985 Author Organization [facility] Address [address] [place] [address] Care Team Providers Name Role Phone Unavailable Primary Care Provider Unavailable Encounter Details Date Type Department Care Team Description 02/04/2010 Hospital Encounter [facility] XRAY Provider, Histori huma Social History [...] How often do you attend tenriism or cheondoism More than 4 time s [...] Yousif M.D. - 02/04/2010 11:00 AM CDT [id number] Quick Note: Nursing: please call patient to inform her the wet prep and ultrasound were both normal. Thanks. Source: [facility] RWMCHXTRANSXSYS Document Id: [id number] documented in this encounter Plan of Treatment Not on filedocumented as of this encounter Visit Diagnoses Not on filedocumented in this encounter
--- OUTSIDE RECORDS SUMMARY | 2022-07-17 08:13 | XMS_ITS | Encounter Summary ---
:1985 Author Organization [facility] Address [address] [place] [address] Care Team Providers Name Role Phone Unavailable [...] often do you attend roman catholic or hindu More than 4 time s [...] Historical Provider Ser - 08/23/2008 12:00 AM SCIENCE TECHNICIAN [id number] 07/02/2009 - Date of R/C request: 06-12-09 Records sent to: Care Delivery Management [facility] Bambi Oh RN - [address] [address] [place] [address] -[facility] Description of Disclosure: 12-27-07 to 12-29-07. 12-30-07 to 12-30-07, 01-02-08 to 01-06-08 Purpose of Disclosure: insurance for payment audit Authorization: NO Source: [facility] Document Id: [id number] documented in this encounter Plan of Treatment Not on filedocumented as of this encounter Visit Diagnoses Not on filedocumented in this encounter
--- OUTSIDE RECORDS SUMMARY | 2022-07-17 08:13 | XMS_ITS | Encounter Summary ---
:1985 Author Organization [facility] Address [address] [place] [address] Care Team Providers Name Role Phone Unavailable [...] How often do you attend moravian or evangelical More than 4 time s [...]
--- OUTSIDE RECORDS SUMMARY | 2022-07-17 08:13 | XMS_ITS | Encounter Summary ---
:1985 Author Organization [facility] Address [address] [place] [address] Care Team Providers Name Role Phone Unavailable Primary Care Provider Unavailable Encounter Details Date Type Department Care Team Description 01/02/2008 Hospital Encounter [facility] Casi Vo M.D. [address] [place], [place] [address] (Wo rk) Social History [...] How often do you attend protestant or uatsdin More than 4 time s [...] Grove M.D. - 01/02/2008 9:30 AM CDT [id number] Here for NST/ANA LUISA. Failed IOL last week for PIH. Was on BR all weekend BP normal today. O: ANA LUISA=4.5 A/P Gestational Age: 40w 5d , oligohydramnios. history of evolving PIH but BPs have been normal on BR. Admit. KG Source: [facility] RWMCHXTRANSXRTFSYS Document Id: [id number] documented in this encounter Plan of Treatment Not on filedocumented as of this encounter Visit Diagnoses Not on filedocumented in this encounter
--- OUTSIDE RECORDS SUMMARY | 2022-07-17 08:13 | XMS_ITS | Encounter Summary ---
:1985 Author Organization [facility] Address [address] [place] [address] Care Team Providers Name Role Phone Unavailable Primary Care Provider Unavailable Encounter Details Date Type Department Care Team Description 08/06/2009 Hospital Encounter [facility]X [facility] INPT/OBSRV Shari Diaz M.D. [address] [place], [place] [address] (Wo rk) Social History [...] How often do you attend cheondoism or lutheran More than 4 time s [...]
--- OUTSIDE RECORDS SUMMARY | 2022-07-17 08:13 | XMS_ITS | Encounter Summary ---
:1985 Author Organization [facility] Address [address] [place] [address] Care Team Providers Name Role Phone Unavailable [...] Provider Ser - 12/30/2007 7:10 AM CDT [id number] [facility] Document Id: [id number] Miscellaneous - Conversion, Historical Provider Ser - 12/30/2007 7:10 AM CDT [id number] December 30, 2007 Carol [place] [id number] OB Admit History & Physical 2007 Carol [...] N/A Years of Education: 13 Occupational History [employer] Social History Main Topics Tobacco [...] Negative GI: Negative BREAST: Negative : Negative EXERCISE INSTRUCT: As above CV: Negative PULMONARY: Negative MUSCULOSKELETAL: Negative PSYCH: Negative PE: BP 108/80 Gen: A&O, NAD CV: RRR Chest: CTA bilat Abd: Gravid, NT, vtx by Christiane, EFW 3900g by Christiane Ext: No CT, 1+ edema, DTR tr bilat, no clonus SVE: Deferred FHT: 140, ave LTV, +accels [place]: Irritability Amnisure: Negative Ltd ultrasound performed. Cephalic presentation confirmed. A/P: 21 y/o @ 40w2 (10) with: 1. IOL: Will proceed with 2nd attempt at induction with pitocin. 2. Gestational HTN: No e/o pree. Bp OK today. Will follow 3. GBS negative 4. status reassuring. Rylee Grijalva MD Dept of PROCESS IMPROVEMENT SPECIALIST Source: [facility] Document Id: [id number] Miscellaneous - Conversion, Historical Provider Ser - 12/30/2007 7:10 AM CDT [id number] [facility] [address] [facility], [address] Name: Carol Juarez Birthdate: 1985 [facility] Admission Date: 12/30/2007 Allergy: No [...] minutes. Dr. Rylee Grijalva MD 12/30/2007 Source: [facility] RWHXTRANSXRTFSYS Document Id: [id number] Miscellaneous - Conversion, Historical Provider Ser - 12/30/2007 7:10 AM CDT [id number] [facility] [address] [facility], [address] Name: Carol Juarez Birthdate: 1985 SSN: [id number] [facility] Allergy: No known allergies Discharge Date: 12/30/2007 [...] water breaks Diet: regular Appointment(s): Please call [phone] on Wednesday for an appt. Make appt for Wednesday01/02/08 forOB check and NST. I have all of my belongings . I understand my discharge instructions. My medications were reviewed with me. Patient's Signature: Nurse Discharging this patient signature: RN Signature & Date: Spencer Schuster RN Date: 12/30/2007 Please see paper chart for additional discharge documentation info: (time, how & by). Source: [facility] RWHXTRANSXRTFSYS Document Id: [id number] documented in this encounter Plan of Treatment Not on filedocumented as of this encounter Visit Diagnoses Not on filedocumented in this encounter
--- OUTSIDE RECORDS SUMMARY | 2022-07-17 08:13 | XMS_ITS | Encounter Summary ---
:1985 Author Organization [facility] Address [address] [place] [address] Care Team Providers Name Role Phone Unavailable [...] How often do you attend sabianist or sikh More than 4 time s [...]
--- OUTSIDE RECORDS SUMMARY | 2022-07-17 08:13 | XMS_ITS | Encounter Summary ---
:1985 Author Organization [facility] Address [address] [place] [address] Care Team Providers Name Role Phone Unavailable [...] How often do you attend yazidi or spiritism More than 4 time s [...] Historical Provider Ser - 07/16/2010 12:00 AM CONTINUITY DIRECTOR [id number] LETTER Carol Juarez [address] [address] [facility] [address] [facility] July 16, 2010 Dear Carol: Thank you for requesting an appointment for services at the [facility] Behavioral [facility] Department. Initial 45 minute appointments have been scheduled in our Psychology Department with: Kaye Magallanes, Ph.D., L.P. Sunday, August 01, 2010 at 11:00 AM Wednesday, August 29, 2010 at 10:00 AM Wednesday, September 12, 2010 at 11:00 AM located on the 3rd floor: [facility] ([facility]) at [address] [place] [address]. If the above scheduled appointment is not [...] be a pleasant and worthwhile one. Sincerely, [facility] Contact Information July 16, 2010 Intake done by: Humaira EMR#: [id number] NAME: Carol Juarez SSN: [id number] : 1985 Age: [age] year old Sex: female Spouse/ S.O.: - Parent/Guardian: - ADDRESS: [address] [place] [address] [place] Phone Numbers: [phone] (home) Phone Contact: Home: Yes Messages: Yes Written Contact: Home: Yes Work: No Payor: [facility] Plan: [facility] Product Type: Indemnity Court Ordered/Litigation No Referral Information Caller: self Referred by: elie Location: Referred to: monty Prior Contact with [facility]? No Date: - Doctor seen: NA Reason: [...] Packet Sent on Wait List No Source: [facility] RWHXTRANSXRTFSYS Document Id: [id number] documented in this encounter Plan of Treatment Not on filedocumented as of this encounter Visit Diagnoses Not on filedocumented in this encounter
--- OUTSIDE RECORDS SUMMARY | 2022-07-17 08:13 | XMS_ITS | Encounter Summary ---
:1985 Author Organization [facility] Address [address] [place] [address] Care Team Providers Name Role Phone Unavailable Primary Care Provider Unavailable Encounter Details Date Type Department Care Team Description 10/03/2008 Hospital Encounter [facility] Provider, [facility] Social [...] How often do you attend synagogue or methodist More than 4 time s [...] Provider Ser - 10/03/2008 12:00 AM CST [id number] TELEPHONE TRIAGE ENCOUNTER FORM Date: 10/03/2008 PCP: Venu Yousif MD, MD Patient Name: Carol Juarez Gender: female : 1985 Age: [age] year old Time: 11:35 AM Phone Numbers: [phone] (home) Pharmacy: [email or web address] FALLS ASSESSMENT Presenting Problem: Skin infection/left hand [...] FOLLOW-UP Will see Eddie Mcnair today. Source: [facility] RWHXTRANSXRTFSYS Document Id: [id number] documented in this encounter Plan of Treatment Not on filedocumented as of this encounter Visit Diagnoses Not on filedocumented in this encounter
--- OUTSIDE RECORDS SUMMARY | 2022-07-17 08:13 | XMS_ITS | Encounter Summary ---
:1985 Author Organization [facility] Address [address] [place] [address] Care Team Providers Name Role Phone Unavailable Primary Care Provider Unavailable Encounter Details Date Type Department Care Team Description 03/27/2009 Hospital Encounter [facility] Provider, [facility] [...] How often do you attend confucianist or sikhism More than 4 time s [...]
--- OUTSIDE RECORDS SUMMARY | 2022-07-17 08:13 | XMS_ITS | Encounter Summary ---
:1985 Author Organization [facility] Address [address] [place] [address] Care Team Providers Name Role Phone Unavailable Primary Care Provider Unavailable Encounter Details Date Type Department Care Team Description 06/04/2008 Hospital Encounter [facility] INPT/OBSRV Neema Nieves M.D. Social History Tobacco [...] often do you attend roman catholic or denominational More than 4 time s [...]
--- OUTSIDE RECORDS SUMMARY | 2022-07-17 08:13 | XMS_ITS | Encounter Summary ---
:[address] [facility] Address [address] [place] [address] Care Team Providers Name Role Phone Unavailable Primary Care Provider Unavailable Encounter Details Date Type Department Care Team Description 02/22/2009 Hospital Encounter HX NO MAPPING Rizwan Dean M.D. [address] [place], [place] [address] (Wo rk) Social History [...] How often do you attend baptist or buddhism More than 4 time s [...]
--- OUTSIDE RECORDS SUMMARY | 2022-07-17 08:13 | XMS_ITS | Encounter Summary ---
:1985 Author Organization [facility] Address [address] [place] [address] Care Team Providers Name Role Phone Unavailable Primary Care Provider Unavailable Encounter Details Date Type Department Care Team Description 05/19/2009 Hospital Encounter [facility] INPT/OBSRV Chon Babin M.D. [address] [place], [place] [address] (Wo rk) Social History Tobacco Use Types [...] How often do you attend baptist or hinduism More than 4 time s [...]
--- OUTSIDE RECORDS SUMMARY | 2022-07-17 08:13 | XMS_ITS | Encounter Summary ---
:1985 Author Organization [facility] Address [address] [place] [address] Care Team Providers Name Role Phone Unavailable Primary Care Provider Unavailable Encounter Details Date Type Department Care Team Description 06/02/2010 Hospital Encounter [facility] FAMILY[facility] Ysabel Reyes R.NBrittaney [address] [address] Social History Tobacco Use Types [...] How often do you attend mormonism or episcopalian More than 4 time s [...] Reyes R.N. - 06/02/2010 12:00 AM CDT [id number] Situation/What is the patients concern/need: N/v diarrhea, [...] Request: Apt with provider for headache. [facility] Document Id: [id number] Electronically signed by Conversion, [facility] Drapery Cutter Machine [id number] at 01/24/2017 12:32 PM CDT documented in this encounter Plan of Treatment Not on filedocumented as of this encounter Visit Diagnoses Not on filedocumented in this encounter
--- OUTSIDE RECORDS SUMMARY | 2022-07-17 08:13 | XMS_ITS | Encounter Summary ---
:1985 Author Organization [facility] Address [address] [place] [address] Care Team Providers Name Role Phone Unavailable Primary Care Provider Unavailable Encounter Details Date Type Department Care Team Description 03/24/2010 Hospital [facility] Yamel Koch M.D. [address] [place] [address] (Wo rk) Social History Tobacco [...] How often do you attend jewish or sikh More than 4 time s [...] Giang M.D. - 03/24/2010 11:00 AM CDT [id number] Chief Complaint: Chief Complaint Patient presents with [...] or return if worsening or spreading. Source: [facility] RWMCHXTRANSXRTFSYS Document Id: [id number] Electronically signed by Conversion, [facility] Clinical Program Director [id number] at 01/24/2017 2:27 PM CDT documented in this encounter Miscellaneous Notes Miscellaneous - Venu Giang M.D. - 03/24/2010 11:00 AM CDT [id number] [facility] [address] [facility], [address] 03/24/2010 Carlo Juarez TO WHOM IT MAY CONCERN: Carol Juarez was seen on 03/24/2010. Please excuse her 03/24/2010 due to a medical condition. She may return 03/25/2010 without restrictions. Cordially, Venu Giang M.D. FAMILY MEDICINE [facility] Source: [facility] RWHXTRANSXRTFSYS Document Id: [id number] Electronically signed by Conversion, [facility] Clinical Program Director [id number] at 01/24/2017 2:27 PM CDT documented in this encounter Plan of Treatment Not on filedocumented as of this encounter Visit Diagnoses Not on filedocumented in this encounter
--- OUTSIDE RECORDS SUMMARY | 2022-07-17 08:13 | XMS_ITS | Encounter Summary ---
:1985 Author Organization [facility] Address [address] [place] [address] Care Team Providers Name Role Phone Unavailable Primary Care Provider Unavailable Encounter Details Date Type Department Care Team Description 10/03/2008 Hospital Encounter 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 Source: [facility] RWHXTRANSXRTFSYS Document Id: [id number] documented in this encounter Plan of Treatment Not on filedocumented as of this encounter Visit Diagnoses Not on filedocumented in this encounter
--- OUTSIDE RECORDS SUMMARY | 2022-07-17 08:13 | XMS_ITS | Encounter Summary ---
:1985 Author Organization [facility] Address [address] [place] [address] Care Team Providers Name Role Phone Unavailable Primary Care Provider Unavailable Encounter Details Date Type Department Care Team Description 02/04/2010 Hospital Encounter HX NO MAPPING Venu Yousif M.D. [address] [place], [place] [phone] (Wo rk) Social History [...] How often do you attend mandaen or gnosticism More than 4 time s [...]
--- OUTSIDE RECORDS SUMMARY | 2022-07-17 08:13 | XMS_ITS | Encounter Summary ---
:1985 Author Organization [facility] Address [address] [place] [address] Care Team Providers Name Role Phone Unavailable Primary Care Provider Unavailable Encounter Details Date Type Department Care Team Description 01/09/2009 Hospital Encounter [facility] Yamel Koch M.D. [address] [place] [address] (Wo rk) Social History [...] How often do you attend muslim or taoist More than 4 time s [...] Yousif M.D. - 01/09/2009 3:00 PM CDT [id number] Comment: Chief Risk Officer Chief Complaint Patient presents with Knee Pain [...] orKeflex is resistant to this. PCN/BTM/dac Source: [facility] RWMCHXTRANSXRTFSYS Document Id: [id number] Electronically signed by Conversion, [facility] Chief Risk Officer [id number] at 01/24/2017 3:54 PM CDT documented in this encounter Plan of Treatment Not on filedocumented as of this encounter Visit Diagnoses Not on filedocumented in this encounter
--- OUTSIDE RECORDS SUMMARY | 2022-07-17 08:13 | XMS_ITS | Encounter Summary ---
:1985 Author Organization [facility] Address [address] [place] [address] Care Team Providers Name Role Phone Unavailable Primary Care Provider Unavailable Encounter Details Date Type Department Care Team Description 06/27/2010 Hospital Encounter HX [facility] Moon Figueredo, P.A.-C. [address] [place] [address] (Wo rk) Social History Tobacco Use Types [...] How often do you attend zoroastrianism or baptist More than 4 time s [...] Ellsworth P.A.-C. 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 Source: [facility] RWHXTRANSXRTFSYS Document Id: [id number] Electronically signed by Conversion, [facility] [place] Maori [id number] at 01/24/2017 1:07 PM CDT documented in this encounter Miscellaneous Notes Miscellaneous - Conversion, Historical Provider Ser - 06/27/2010 10:00 AM CDT [id number] Carol Pearsonford [address] [place] [address] [facility] July 01, 2010 Dear Carol Juarez, I am happy to inform you that your recent cervical cancer screening test (PAP smear) was normal. Preventative screening such as this helps insure your health for years to come. Congratulations for taking care of yourself! Please contact my office if you have any further questions. [phone]. Sincerely, CASSIE Mcintosh OBSTETRICS/GYNECOLOGY [facility] Source: [facility] Document Id: [id number] Miscellaneous - Gloria Ellsworth P.A.-C. - 06/27/2010 10:00 AM CDT [id number] [facility] FIELD TECHNICAL SPECIALIST [address] [place] [address] July 03, 2010 Carol Juarez [address] [place] [address] [facility] Dear Ms. Juarez., This letter is sent to inform you of recent laboratory test results and to provide you with personalrecords of health information. Your Pap and chlamydia tests were negative. Thank you for allowing me to participate in your care. If you have any further questions or problems, please contact me at [phone]. Sincerely, Gloria Ellsworth PA-C Source: [facility] Document Id: [id number] Electronically signed by Conversion, [facility] [place] [id number] at 01/24/2017 1:07 PM CDT documented in this encounter Plan of Treatment Not on filedocumented as of this encounter Visit Diagnoses Not on filedocumented in this encounter
--- OUTSIDE RECORDS SUMMARY | 2022-07-17 08:13 | XMS_ITS | Encounter Summary ---
:1985 Author Organization [facility] Address [address] [place] [address] Care Team Providers Name Role Phone Unavailable Primary Care Provider Unavailable Encounter Details Date Type Department Care Team Description 06/02/2010 Hospital Encounter [facility] Yamel Koch M.D. [address] [place] [address] (Wo rk) Social History Tobacco [...] often do you attend roman catholic or amish More than 4 time s [...] Giang M.D. - 06/02/2010 10:30 AM CDT [id number] Chief Complaint Patient presents with Headache episodes [...] nausea. Imitrex for headache, suspect migraine. Source: [facility] Document Id: [id number] Electronically signed by Conversion, [facility] Mental Health Counselor [id number] at 01/24/2017 12:32 PM CDT documented in this encounter Miscellaneous Notes Miscellaneous - Keith Giang M.D. - 06/02/2010 10:30 AM CDT [id number] [facility] [address] [facility], [address] 06/02/2010 Carol Juarez TO WHOM IT MAY CONCERN: Carol Juarez was seen on 06/02/2010. Please excuse her from 06/02/2010 until symptoms improve due to illness. Cordially, Keith Giang M.D. FAMILY MEDICINE [facility] Source: [facility] Document Id: [id number] Electronically signed by Conversion, [facility] Mental Health Counselor [id number] at 01/24/2017 12:32 PM CDT documented in this encounter Plan of Treatment Not on filedocumented as of this encounter Visit Diagnoses Not on filedocumented in this encounter
--- OUTSIDE RECORDS SUMMARY | 2022-07-17 08:13 | XMS_ITS | Encounter Summary ---
:1985 Author Organization [facility] Address [address] [place] [address] Care Team Providers Name Role Phone Unavailable Primary Care Provider Unavailable Encounter Details Date Type Department Care Team Description 02/06/2008 Hospital Encounter HX [facility] Marisol Galaviz, APR N, C.N.P. [address] [place], [place] [address] (Wo rk) Social History [...] How often do you attend scientologist or taoism More than 4 time s [...] C.NLebron., R.N. - 02/06/2008 1:00 PM CDT [id number] Carol is here for a 6-week checkup. [...] and symptoms of infection were discussed. Source: [facility] RWHXTRANSXRTFSYS Document Id: [id number] Electronically signed by Conversion, [facility] Special Education Assistant [id number] at 01/25/2017 2:51 AM CDT documented in this encounter Miscellaneous Notes Miscellaneous - Marisol Irving C.N.P., R.N. - 02/06/2008 1:00 PM CDT [id number] Date: 02/06/2008 Name: Carol Juarez Birthdate: 1985 The patient was seen at: [facility] today Restrictions if any: Able to work unrestricted as of today. Marisol Irving RN, RN UROLOGY OBSTETRICS/GYNECOLOGY [facility] Source: [facility] RWHXTRANSXRTFSYS Document Id: [id number] Electronically signed by Roland, [facility] Special Education Assistant [id number] at 01/25/2017 2:51 AM CDT documented in this encounter Plan of Treatment Not on filedocumented as of this encounter Visit Diagnoses Not on filedocumented in this encounter
--- OUTSIDE RECORDS SUMMARY | 2022-07-17 08:13 | XMS_ITS | Encounter Summary ---
:1985 Author Organization [facility] Address [address] [place] [address] Care Team Providers Name Role Phone Unavailable Primary Care Provider Unavailable Encounter Details Date Type Department Care Team Description 02/22/2009 Hospital Encounter HX NO MAPPING Rizwan Dean M.D. [address] [place], [place] [address] (Wo rk) Social [...] How often do you attend christian or anglican More than 4 time s [...]
--- OUTSIDE RECORDS SUMMARY | 2022-07-17 08:13 | XMS_ITS | Encounter Summary ---
:1985 Author Organization [facility] Address [address] [place] [address] Care Team Providers Name Role Phone Unavailable Primary Care Provider Unavailable Encounter Details Date Type Department Care Team Description 10/30/2008 Hospital Encounter [facility] Casi Vo M.D. [address] [place], [place] [address] (Wo rk) Social History [...] How often do you attend jew or spiritism More than 4 time s [...] Grove M.D. - 10/30/2008 2:30 PM CDT [id number] Carol is a 22 year old here for her annual exam. 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 Declines Chl screen (monogamous) Health maintenance includes: pap smear done today and smoking cessation. Source: [facility] Document Id: [id number] Electronically signed by Roland, [facility] Disaster Or Damage Control Specialist [id number] at 01/24/2017 4:40 PM CDT documented in this encounter Miscellaneous Notes Miscellaneous - Conversion, Historical Provider Ser - 10/30/2008 2:30 PM CDT [id number] Carol Juarez [address] [place] [address] November 01, 2008 Dear Carol Juarez, I am happy to inform you that your recent cervical cancer screening test (PAP smear) was normal. Preventative screening such as this helps insure your health for years to come. Congratulations for taking care of yourself! Please contact my office if you have any further questions. [phone]. Sincerely, Ann Grove M.D. OBSTETRICS/GYNECOLOGY [facility] Source: [facility] Document Id: [id number] documented in this encounter Plan of Treatment Not on filedocumented as of this encounter Visit Diagnoses Not on filedocumented in this encounter
--- OUTSIDE RECORDS SUMMARY | 2022-07-17 08:13 | XMS_ITS | Encounter Summary ---
:1985 Author Organization [facility] Address [address] [place] [address] Care Team Providers Name Role Phone Unavailable Primary Care Provider Unavailable Encounter Details Date Type Department Care Team Description 02/17/2010 Hospital Encounter HX NO MAPPING Berny Garcia M.D. [address] [place], [place] [address] (Wo rk) Social History [...] How often do you attend restoration or christian More than 4 time s [...]
--- OUTSIDE RECORDS SUMMARY | 2022-07-17 08:13 | XMS_ITS | Encounter Summary ---
:1985 Author Organization [facility] Address [address] [place] [address] Care Team Providers Name Role Phone Unavailable Primary Care Provider Unavailable Encounter Details Date Type Department Care Team Description 07/15/2010 Hospital Encounter HX [facility] Provider, [facility] Social History Tobacco Use Types Packs/Day [...] How often do you attend samaritan or gnosticist More than 4 time s [...] Provider Ser - 07/15/2010 12:00 AM CST [id number] TELEPHONE TRIAGE ENCOUNTER FORM Date: 07/15/2010 PCP: Venu Yousif MD, MD Patient Name: Carol Juarez Gender: female : 1985 Age: [age] year old Time: 4:45 PM Phone Numbers: [phone] (home) Pharmacy: [facility] ASSESSMENT Presenting Problem: Depression [...] way prior to scheduled appointment time. Source: [facility] RWHXTRANSXRTFSYS Document Id: [id number] documented in this encounter Plan of Treatment Not on filedocumented as of this encounter Visit Diagnoses Not on filedocumented in this encounter
--- OUTSIDE RECORDS SUMMARY | 2022-07-17 08:13 | XMS_ITS | Encounter Summary ---
:1985 Author Organization [facility] Address [address] [place] [address] Care Team Providers Name Role Phone Unavailable Primary Care Provider Unavailable Encounter Details Date Type Department Care Team Description 02/04/2010 Hospital Encounter [facility]X [facility] Yamel Koch M.D. [address] [place] [address] (Wo rk) Social History Tobacco [...] How often do you attend mandaen or adventism More than 4 time s [...] Giang M.D. - 02/04/2010 9:00 AM CDT [id number] Chief Complaint Patient presents with Abdominal Pain [...] well. Wet prep reviewed and normal. Source: [facility] RWHXTRANSXRTFSYS Document Id: [id number] documented in this encounter Plan of Treatment Not on filedocumented as of this encounter Visit Diagnoses Not on filedocumented in this encounter
--- OUTSIDE RECORDS SUMMARY | 2022-07-17 08:13 | XMS_ITS | Encounter Summary ---
:1985 Author Organization [facility] Address [address] [place] [address] Care Team Providers Name Role Phone Unavailable Primary Care Provider Unavailable Encounter Details Date Type Department Care Team Description 02/17/2010 Hospital Encounter HX NO MAPPING Berny Garcia M.D. [address] [place], [place] [address] (Wo rk) Social History [...] How often do you attend confucianist or islam More than 4 time s [...]
--- OUTSIDE RECORDS SUMMARY | 2022-07-17 08:13 | XMS_ITS | Encounter Summary ---
:1985 Author Organization [facility] Address [address] [place] [address] Care Team Providers Name Role Phone Unavailable Primary Care Provider Unavailable Encounter Details Date Type Department Care Team Description 12/29/2007 Hospital Encounter [facility] Casi Vo M.D. [address] [place], [place] [address] (Wo rk) Social History [...] How often do you attend restorationist or muslim More than 4 time s [...] Grove M.D. - 12/29/2007 12:[id number] [facility] [address] [facility], [address] Name: Carol Juarez Birthdate: 1985 [facility] Admission Date: 12/27/2007 Allergy: [...] minutes. Dr. Ann Grove MD 12/29/2007 Source: [facility] RWHXTRANSXRTFSYS Document Id: [id number] Electronically signed by Conversion, [facility] Manga Artist [id number] at 01/25/2017 4:45 AM CDT Miscellaneous - Conversion, Historical Provider Ser - 12/29/2007 12:00 AM CDT [id number] [address], [address] Name: Carol Juarez Birthdate: 1985 SSN: [id number] [facility] Allergy: No known allergies Discharge [...] documentation info: (time, how & by). Source: [facility] RWMCHXTRANSXRTFSYS Document Id: [id number] documented in this encounter Plan of Treatment Not on filedocumented as of this encounter Visit Diagnoses Not on filedocumented in this encounter
--- OUTSIDE RECORDS SUMMARY | 2022-07-17 08:13 | XMS_ITS | Encounter Summary ---
:1985 Author Organization [facility] Address [address] [place] [address] Care Team Providers Name Role Phone Unavailable Primary Care Provider Unavailable Encounter Details Date Type Department Care Team Description 02/04/2010 Hospital Encounter HX NO MAPPING Venu Yousif M.D. [address] [place], [place] [address] (Wo rk) Social History [...] How often do you attend protestant or samaritan More than 4 time s [...]
--- OUTSIDE RECORDS SUMMARY | 2022-07-17 08:13 | XMS_ITS | Encounter Summary ---
:1985 Author Organization [facility] Address [address] [place] [address] Care Team Providers Name Role Phone Unavailable [...] How often do you attend scientology or episcopalian More than 4 time s [...] Kinney M.D. - 01/02/2008 10:25 AM CDT [id number] [facility] [address] [facility], [address] Name: Carol Juarez Birthdate: 1985 Hospital Medical [...] [address] Mariaelena Kinney 01/06/2008 Source: [facility] RWMCHXTRANSXRTFSYS Document Id: [id number] Electronically signed by [facility], [facility] Swine Genetics Researcher [id number] at 01/25/2017 4:45 AM CDT Miscellaneous - Conversion, Historical Provider Ser - 01/02/2008 10:25 AM CDT [id number] [address] [place] [address] Name: Caorl Juarez Birthdate: 1985 SSN: [id number] [facility] Allergy: No known allergies Discharge Date: 01/06/2008 Obstetrical Discharge Instructions Information [facility] to [facility]: [facility] Immunization - Yes Notice of Phone Call [...] documentation info: (time, how & by). Source: [facility] RWHXTRANSXRTFSYS Document Id: [id number] documented in this encounter Plan of Treatment Not on filedocumented as of this encounter Visit Diagnoses Not on filedocumented in this encounter
--- OUTSIDE RECORDS SUMMARY | 2022-07-17 08:13 | XMS_ITS | Encounter Summary ---
:1985 Author Organization [facility] Address [address] [place] [address] Care Team Providers Name Role Phone Unavailable [...] How often do you attend protestant or worship More than 4 time s [...]
--- OUTSIDE RECORDS SUMMARY | 2022-07-17 08:13 | XMS_ITS | Encounter Summary ---
:1985 Author Organization [facility] Address [address] [place] [address] Care Team Providers Name Role Phone Unavailable Primary Care Provider Unavailable Encounter Details Date Type Department Care Team Description 06/11/2010 Hospital Encounter [facility] Yamel Koch M.D. [address] [place] [address] (Wo rk) Social History Tobacco [...] Giang M.D. - 06/11/2010 2:45 PM CDT [id number] Chief Complaint: Chief Complaint Patient presents with [...] squeezing or trying to pop this. Source: [facility] RWMCHXTRANSXRTFSYS Document Id: [id number] documented in this encounter Plan of Treatment Not on filedocumented as of this encounter Visit Diagnoses Not on filedocumented in this encounter
--- OUTSIDE RECORDS SUMMARY | 2022-07-17 08:13 | XMS_ITS | Encounter Summary ---
:1985 Author Organization [facility] Address [address] [place] [address] Care Team Providers Name Role Phone Unavailable Primary Care Provider Unavailable Encounter Details Date Type Department Care Team Description 01/20/2008 Hospital Encounter H[facility] Adonis Weir M.D. [address] [place] [address] [phone] (Wo rk) Social History Tobacco [...] How often do you attend holiness or nondenominational More than 4 time s [...] Hooks M.D. - 01/20/2008 10:45 AM CDT [id number] Carol is sent from Peds (there with [...] epigastric pain resolving Plan: Amylase, CBC [facility] Document Id: [id number] documented in this encounter Plan of Treatment Not on filedocumented as of this encounter Visit Diagnoses Not on filedocumented in this encounter
--- OUTSIDE RECORDS SUMMARY | 2022-07-17 08:14 | XMS_ITS | Encounter Summary ---
:1985 Author Organization [facility] Address [address] [place] [address] Care Team Providers Name Role Phone Unavailable Primary Care Provider Unavailable Encounter Details Date Type Department Care Team Description 10/24/2007 Hospital Encounter [facility] Mariaelena Mcintosh M.D. Social History Tobacco Use [...] How often do you attend mosque or gnosticism More than 4 time s [...] Kinney M.D. - 10/24/2007 11:00 AM CST [id number] Has some mild CHOWDHURY, migranes Used tylenol and Caffeine. Good movement. Exam normal. Skin lesion onarms - will get derm consult. KD Source: [facility] Document Id: [id number] Electronically signed by Conversion, [facility] Ear Nose Throat Physician [id number] at 01/25/2017 1:26 AM CDT documented in this encounter Plan of Treatment Not on filedocumented as of this encounter Visit Diagnoses Not on filedocumented in this encounter
--- OUTSIDE RECORDS SUMMARY | 2022-07-17 08:14 | XMS_ITS | Encounter Summary ---
:1985 Author Organization [facility] Address [address] [place] [address] Care Team Providers Name Role Phone Unavailable Primary Care Provider Unavailable Encounter Details Date Type Department Care Team Description 09/28/2007 Hospital Encounter [facility] Dave Dela Cruz, R.N. Social [...] How often do you attend yazdanism or hinduism More than 4 time s [...] Cruz R.N. - 09/28/2007 12:00 AM CST [id number] Patient called reports that she was into [...] Patient agrees to plan or care. Source: [facility] RWHXTRANSXRTFSYS Document Id: [id number] documented in this encounter Plan of Treatment Not on filedocumented as of this encounter Visit Diagnoses Not on filedocumented in this encounter
--- OUTSIDE RECORDS SUMMARY | 2022-07-17 08:14 | XMS_ITS | Encounter Summary ---
:1985 Author Organization [facility] Address [address] [place] [address] Care Team Providers Name Role Phone Unavailable Primary Care Provider Unavailable Encounter Details Date Type Department Care Team Description 09/26/2007 Hospital Encounter [facility] Provider, Historic al Social History [...] How often do you attend restorationist or gnosticism More than 4 time s [...]
--- OUTSIDE RECORDS SUMMARY | 2022-07-17 08:14 | XMS_ITS | Encounter Summary ---
:1985 Author Organization [facility] Address [address] [place] [address] Care Team Providers Name Role Phone Unavailable [...]
--- OUTSIDE RECORDS SUMMARY | 2022-07-17 08:14 | XMS_ITS | Encounter Summary ---
:1985 Author Organization [facility] Address [address] [place] [address] Care Team Providers Name Role Phone Unavailable Primary Care Provider Unavailable Encounter Details Date Type Department Care Team Description 09/28/2007 [facility] Manuel Paula P.A.-C., P.A. [address] [place] [address] (Wo rk) Social History Tobacco [...] How often do you attend gnosticism or bahai More than 4 time s [...] CDT documented as of this encounter Progress Karey Lanza - 09/28/2007 8:30 AM CST [id number] SUBJECTIVE: Carol is a 21 year old [...] week or sooner if symptoms wrosen Source: [facility]XTRANSXRT[facility]YS Document Id: [id number] Electronically signed by Conversion, [facility] Cooler Conveyor Loader [id number] at 01/25/2017 12:10 AM CDT documented in this encounter Miscellaneous Notes Miscellaneous - Karey Paula - 09/28/2007 8:30 AM CST [id number] Carol Juarez [address] [place] [phone] September 28, 2007 To whom it may concern Please excuse Carol Juarez from work for illness on 09/28/2007. She may return to work on 09/29/2007 without limitation. If you have any other questions or concerns please feel free to contact me at anytime. Sincerely, Karey Paula PA-C Department of Family Practice [facility] Source: [facility] RWHXTRANSXRTFSYS Document Id: [id number] Electronically signed by Roland, [facility] Cooler Conveyor Loader [id number] at 01/25/2017 12:10 AM CDT documented in this encounter Plan of Treatment Not on filedocumented as of this encounter Visit Diagnoses Not on filedocumented in this encounter
--- OUTSIDE RECORDS SUMMARY | 2022-07-17 08:14 | XMS_ITS | Encounter Summary ---
:1985 Author Organization [facility] Address [address] [place] [address] Care Team Providers Name Role Phone Unavailable Primary Care Provider Unavailable Encounter Details Date Type Department Care Team Description 11/25/2007 Hospital Encounter HX [facility] OBGYN Provider, Histor ical Social History [...] How often do you attend baptist or mandaeism More than 4 time s [...] Provider Ser - 11/25/2007 2:00 PM CDT [id number] Gestational Age: 35w 2d, recheck b/p, has a lot of pelvic pressure, has some leakage after she voids,JZ No sx pree. Repeat bp 122/80. Nitrazine negative. No ctx/vb. Decreased movement. BPP performed in clinic ANA LUISA 16cm. +2 breathing, +2 flexion/extension, +2 gross movement, +2 fluid = 88 Source: [facility] RWHXTRANSXRTFSYS Document Id: [id number] documented in this encounter Plan of Treatment Not on filedocumented as of this encounter Visit Diagnoses Not on filedocumented in this encounter
--- OUTSIDE RECORDS SUMMARY | 2022-07-17 08:14 | XMS_ITS | Encounter Summary ---
:1985 Author Organization [facility] Address [address] [place] [address] Care Team Providers Name Role Phone Unavailable Primary Care Provider Unavailable Encounter Details Date Type Department Care Team Description 12/14/2007 Hospital Encounter HX [facility] O[facility] Provider, Histor ical Social History [...] How often do you attend faith or nondenominational More than 4 time s [...] Provider Ser - 12/14/2007 9:45 AM CDT [id number] No complaints, exam normal KRN No regular contractions KRN Source: [facility]FPORTHXTRANSXRTFSYS Document Id: [id number] documented in this encounter Plan of Treatment Not on filedocumented as of this encounter Visit Diagnoses Not on filedocumented in this encounter
--- OUTSIDE RECORDS SUMMARY | 2022-07-17 08:14 | XMS_ITS | Encounter Summary ---
:1985 Author Organization [facility] Address [address] [place] [address] Care Team Providers Name Role Phone Unavailable Primary Care Provider Unavailable Encounter Details Date Type Department Care Team Description 08/26/2007 Hospital Encounter [facility]X [facility] Provider, Histori huma Social History Tobacco [...] How often do you attend buddhist or church More than 4 time s [...] Historical Provider Ser - 08/26/2007 8:45 AM COMMODITIES BROKER [id number] Carol Juarez [address] [place] [phone] September 01, 2007 Dear Ms. Juarez: I [...] or problems, please contact our office at [phone]. Sincerely, Rylee Grijalva MD Dept. MAMMAL KEEPER [facility] Source: [facility] Document Id: [id number] documented in this encounter Plan of Treatment Not on filedocumented as of this encounter Visit Diagnoses Not on filedocumented in this encounter
--- OUTSIDE RECORDS SUMMARY | 2022-07-17 08:14 | XMS_ITS | Encounter Summary ---
:1985 Author Organization [facility] Address [address] [place] [address] Care Team Providers Name Role Phone Unavailable [...] How often do you attend restorationist or shinto More than 4 time s [...] Provider Ser - 12/27/2007 7:10 PM CDT [id number] Source: [facility] Document Id: [id number] documented in this encounter Plan of Treatment Not on filedocumented as of this encounter Visit Diagnoses Not on filedocumented in this encounter
--- OUTSIDE RECORDS SUMMARY | 2022-07-17 08:14 | XMS_ITS | Encounter Summary ---
:1985 Author Organization [facility] Address [address] [place] [address] Care Team Providers Name Role Phone Unavailable Primary Care Provider Unavailable Encounter Details Date Type Department Care Team Description 10/10/[address] [facility] Adonis Weir M.D. [address] [place] [phone] (Wo rk) Social History Tobacco [...] Provider Ser - 10/10/2007 11:00 AM CST [id number] Gestational Age: 28w 5d Rhogam Injection given today. BR No concerns wds Source: [facility] RWHXTRANSXRTFSYS Document Id: [id number] documented in this encounter Plan of Treatment Not on filedocumented as of this encounter Visit Diagnoses Not on filedocumented in this encounter
--- OUTSIDE RECORDS SUMMARY | 2022-07-17 08:14 | XMS_ITS | Encounter Summary ---
:1985 Author Organization [facility] Address [address] [place] [address] Care Team Providers Name Role Phone Unavailable Primary Care Provider Unavailable Encounter Details Date Type Department Care Team Description 09/26/2007 Hospital Encounter [facility] Marisol Galaviz, APR N, C.N.P. [address] [place], [place] [phone] (Wo rk) Social History [...] How often do you attend adventism or restoration More than 4 time s [...] Provider Ser - 09/26/2007 9:45 AM CST [id number] Carol is here for her 26 week visit. She is Gestational Age: 26w 5d weeks today. 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 Carol understands the [...] discussed: none Next appointment: 2,4 weeks Source: [facility] Document Id: [id number] Marisol Irving C.N.P., R.N. - 09/26/2007 9:45 AM CST [id number] Gestational Age: 26w 5d 1 hr gtt, antibody screen and hgb done today. certificate form given. BR Doing well. Attending classes. ZENON Source: [facility]XTRANSXRTFSY Document Id: [id number] Electronically signed by [facility], [facility] Outpatient Physical Therapist Assistant [id number] at 01/25/2017 12:10 AM CDT documented in this encounter Miscellaneous Notes Miscellaneous - Marisol Irving C.N.P., R.N. - 09/26/2007 9:45 AM CST [id number] [facility] [address] [facility] [place] [address] September 27, 2007 Carol Juarez [address] [place] [phone] Dear Ms. Juarez: I am writing to [...] or problems, please contact our office at [phone]. Sincerely, Marisol Irving RN, REED FIXER [facility] Source: [facility]XTRANSXRTFSYS Document Id: [id number] Electronically signed by Roland, Ellie Outpatient Physical Therapist Assistant [id number] at 01/25/2017 12:10 AM CDT documented in this encounter Plan of Treatment Not on filedocumented as of this encounter Visit Diagnoses Not on filedocumented in this encounter
--- OUTSIDE RECORDS SUMMARY | 2022-07-17 08:14 | XMS_ITS | Encounter Summary ---
:1985 Author Organization [facility] Address [address] [place] [address] Care Team Providers Name Role Phone Unavailable Primary Care Provider Unavailable Encounter Details Date Type Department Care Team Description 2007 Hospital Encounter HX [facility] O[facility] Provider, Histor ical Social History [...] How often do you attend samaritan or caodaism More than 4 time s [...] Provider Ser - 2007 9:15 AM CDT [id number] Repeat bp 144/86. No sx pree. Amnisure, nitrazine negative. Will check PIH labs and obs on LD. Source: [facility] Document Id: [id number] documented in this encounter Miscellaneous Notes Miscellaneous - Conversion, Historical Provider Ser - 2007 9:15 AM CDT [id number] 2007 Carol Juarez [id number] OB Admit History & Physical OB ADMIT [...] N/A Years of Education: 13 Occupational History [employer] Home Social History Main Topics [...] Negative GI: Negative BREAST: Negative : Negative TWIST TESTER: Negative CV: Negative PULMONARY: Negative MUSCULOSKELETAL: Negative [...] labs. Rylee Grijalva MD MD Dept of TIME CLOCK MECHANIC Source: [facility]XRTFS[facility] Document Id: [id number] documented in this encounter Plan of Treatment Not on filedocumented as of this encounter Visit Diagnoses Not on filedocumented in this encounter
--- OUTSIDE RECORDS SUMMARY | 2022-07-17 08:14 | XMS_ITS | Encounter Summary ---
:1985 Author Organization [facility] Address [address] [place] [address] Care Team Providers Name Role Phone Unavailable Primary Care Provider Unavailable Encounter Details Date Type Department Care Team Description 05/24/2007 Hospital En[facility] Provider Ser - 05/24/2007 12:00 AM CDT [id number] LMP: 03/12/07- Uncertain Dates NGA: 12/18/06 Triage/Phone [...] THE ABOVE: 1. You will be seeing aMrisol Irving CNP, she is our nurse practitioner, [...] as soon as can be scheduled. Source: [facility] RWHXTRANSXRTFSYS Document Id: [id number] documented in this encounter Plan of Treatment Not on filedocumented as of this encounter Visit Diagnoses Not on filedocumented in this encounter
--- OUTSIDE RECORDS SUMMARY | 2022-07-17 08:14 | XMS_ITS | Encounter Summary ---
:1985 Author Organization [facility] Address [address] [place] [address] Care Team Providers Name Role Phone Unavailable Primary Care Provider Unavailable Encounter Details Date Type Department Care Team Description 08/18/2007 Hospital Encounter [facility] Casi Vo M.D. [address] [place], [place] [phone] (Wo rk) Social History [...] How often do you attend taoist or jehovah's witness More than 4 time [...] Grove M.D. - 08/18/2007 9:15 AM CST [id number] Had presyncopal episode at work this am, better now GERD-can try zantac and maalox prn. KG Source: [facility] RWHXTRANSXRTFSYS Document Id: [id number] documented in this encounter Plan of Treatment Not on filedocumented as of this encounter Visit Diagnoses Not on filedocumented in this encounter
--- OUTSIDE RECORDS SUMMARY | 2022-07-17 08:14 | XMS_ITS | Encounter Summary ---
:1985 Author Organization [facility] Address [address] [place] [address] Care Team Providers Name Role Phone Unavailable Primary Care Provider Unavailable Encounter Details Date Type Department Care Team Description 12/21/2007 Hospital Encounter [facility] Casi Vo M.D. [address] [place], [place] [phone] (Wo rk) Social History [...] How often do you attend scientologist or restoration More than 4 time s [...] Grove M.D. - 12/21/2007 10:15 AM CDT [id number] Repeat BP 132/80. Has 2+ edema. No headache, visual changes Signs and symptoms of PIH discussed. Will follow up Mon with 24 hr urine and labs and appt. KG Source: [facility] RWMCHXTRANSXRTFSYS Document Id: [id number] documented in this encounter Plan of Treatment Not on filedocumented as of this encounter Visit Diagnoses Not on filedocumented in this encounter
--- OUTSIDE RECORDS SUMMARY | 2022-07-17 08:14 | XMS_ITS | Encounter Summary ---
:1985 Author Organization [facility] Address [address] [place] [address] Care Team Providers Name Role Phone Unavailable Primary Care Provider Unavailable Encounter Details Date Type Department Care Team Description 11/07/2007 Hospital Encounter [facility] Provider, Histor ical Social History Tobacco [...] How often do you attend methodist or sikhism More than 4 time s [...] Provider Ser - 11/07/2007 10:30 AM CDT [id number] C/o pressure.TM Patient reassured Would like to be seen by primary for rash. Has depigmented areas on foreqrms bilaterally. Not rpesent on remainder of body. Has had prior to , no other symptoms. KRN Source: [facility] Document Id: [id number] documented in this encounter Plan of Treatment Not on filedocumented as of this encounter Visit Diagnoses Not on filedocumented in this encounter
--- OUTSIDE RECORDS SUMMARY | 2022-07-17 08:14 | XMS_ITS | Encounter Summary ---
:1985 Author Organization [facility] Address [address] [place] [address] Care Team Providers Name Role Phone Unavailable Primary Care Provider Unavailable Encounter Details Date Type Department Care Team Description 11/21/2007 Hospital Encounter HX [facility] Casi Vo M.D. [address] [place], [place] [phone] (Wo rk) Social History [...] How often do you attend amish or islam More than 4 time s [...] Grove M.D. - 11/21/2007 2:00 PM CDT [id number] Gestational Age: 34w 5d C/O increased edema in feet and hands. BR Repeat BP 130/78 sitting. Reviewed S/S of PIH, will limit work to 8 hrs a day (now working 10hr) follow up in 4-5 days. KG Source: [facility] Document Id: [id number] Electronically signed by Conversion, [facility] Human Resources Manager [id number] at 01/25/2017 1:26 AM CDT documented in this encounter Miscellaneous Notes Miscellaneous - Ann Grove M.D. - 11/21/2007 2:00 PM CDT [id number] Return to Work Release Date: 11/21/2007 Name: Carol Juarez Birthdate: 1985 The patient was seen at: [facility] today Restrictions if any: May work no more than 8 hrs due to complications. Ann Grove M.D. OBSTETRICS/GYNECOLOGY [facility] Source: [facility] Document Id: [id number] Electronically signed by Conversion, [facility] Human Resources Manager [id number] at 01/25/2017 1:26 AM CDT documented in this encounter Plan of Treatment Not on filedocumented as of this encounter Visit Diagnoses Not on filedocumented in this encounter
--- OUTSIDE RECORDS SUMMARY | 2022-07-17 08:14 | XMS_ITS | Encounter Summary ---
:1985 Author Organization [facility] Address [address] [place] [address] Care Team Providers Name Role Phone Unavailable Primary Care Provider Unavailable Encounter Details Date Type Department Care Team Description 12/02/2007 Hospital Encounter [facility] Casi Vo M.D. [address] [place], [place] [phone] (Wo rk) Social History [...] How often do you attend mormon or taoist More than 4 time s [...] Grove M.D. - 12/02/2007 9:30 AM CDT [id number] Having some cramping. She's 36 weeks now so given 36 week instructions GBS/Hg done. KARY reviewed. BP good today. KG Source: [facility]XRT[facility] Document Id: [id number] Electronically signed by [facility], [facility] Engineering Lab Technician [id number] at 01/25/2017 2:07 AM CDT documented in this encounter Miscellaneous Notes Ann Barfield M.D. - 12/02/2007 9:30 AM CDT [id number] Carol Magalys [address] [phone] December 05, 2007 Dear Carol: I am [...] or problems, please contact our office at [phone]. Sincerely, Ann Grove MD, MIDDLE SCHOOL TUTOR Department [facility] Source: [facility]XRTFSYS Document Id: [id number] Electronically signed by Conversion, [facility] Engineering Lab Technician [id number] at 01/25/2017 2:07 AM CDT Ann Barfield M.D. - 12/02/2007 9:30 AM CDT [id number] Craol Dowell [address] [address] December 05, 2007 Dear Carol: I am [...] or problems, please contact our office at [phone]. Sincerely, Ann Grove MD, MIDDLE SCHOOL TUTOR Department [facility] Source: [facility] RWHXTRANSXRTFSYS Document Id: [id number] Electronically signed by Roland, [facility] Engineering Lab Technician [id number] at 01/25/2017 2:07 AM CDT documented in this encounter Plan of Treatment Not on filedocumented as of this encounter Visit Diagnoses Not on filedocumented in this encounter
--- OUTSIDE RECORDS SUMMARY | 2022-07-17 08:14 | XMS_ITS | Encounter Summary ---
:1985 Author Organization [facility] Address [address] [place] [address] Care Team Providers Name Role Phone Unavailable Primary Care Provider Unavailable Encounter Details Date Type Department Care Team Description 07/27/2007 Hospital Encounter HX [facility] OBGYN Provider, Histor ical Social History [...] How often do you attend orthodoxy or lutheran More than 4 time s [...] Monsivais L.PBrittaneyNBrittaney - 07/27/2007 8:45 AM CST [id number] Addended by: ALISON GONZALEZ on: 07/27/2007 9:07:44 AM Modules accepted: Orders Source: [facility] Document Id: [id number] Electronically signed by Conversion, [facility] Pivot End Polisher [id number] at 01/25/2017 5:21 AM CDT Conversion, Historical Provider Ser - 07/27/2007 8:45 AM CST [id number] Gestational Age: 18w, feels ok, 20 week waiver signed,declines to have quad test, JZ Doing well, no concerns. Early 1hr glu today. U/s ordered. Source: [facility] Document Id: [id number] documented in this encounter Miscellaneous Notes Miscellaneous - Marisol Irving, C.N.P., R.N. - 07/27/2007 8:45 AM CST [id number] [facility] [address] [place] [address] July 27, 2007 Carol Juarez [address] [place] [phone] Dear Ms. Juarez: I am writing to [...] or problems, please contact our office at [phone]. Sincerely, Marisol Irving RN, BILL ADJUSTER [facility] Source: [facility] Document Id: [id number] Electronically signed by Conversion, [facility] Pivot End Polisher [id number] at 01/25/2017 5:21 AM CDT documented in this encounter Plan of Treatment Not on filedocumented as of this encounter Visit Diagnoses Not on filedocumented in this encounter
--- OUTSIDE RECORDS SUMMARY | 2022-07-17 08:14 | XMS_ITS | Encounter Summary ---
:1985 Author Organization [facility] Address [address] [place] [address] Care Team Providers Name Role Phone Unavailable Primary Care Provider Unavailable Encounter Details Date Type Department Care Team Description 11/21/[address] [facility] Yamel Koch M.D. [address] [place] [address] (Wo rk) Social History Tobacco [...] How often do you attend jain or judaism More than 4 time s [...] Yousif M.D. - 11/21/2007 3:30 PM CDT [id number] Comment: sausage meat trimmer Chief Complaint: Chief Complaint Patient presents with [...] has been doing well. She is from [place]. 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 PCN/analia/mp Source: [facility] RWMCHXTRANSXRTFSYS Document Id: [id number] documented in this encounter Plan of Treatment Not on filedocumented as of this encounter Visit Diagnoses Not on filedocumented in this encounter
--- OUTSIDE RECORDS SUMMARY | 2022-07-17 08:14 | XMS_ITS | Encounter Summary ---
:1985 Author Organization [facility] Address [address] [place] [address] Care Team Providers Name Role Phone Unavailable Primary Care Provider Unavailable Encounter Details Date Type Department Care Team Description 06/01/2007 Hospital Encounter HX NO MAPPING Marisol Irving APRN, C.N.P. [address] [place], [place] [phone] (Wo rk) Social History [...] How often do you attend confucianist or alevism More than 4 time s [...]
--- OUTSIDE RECORDS SUMMARY | 2022-07-17 08:14 | XMS_ITS | Encounter Summary ---
:1985 Author Organization [facility] Address [address] [place] [address] Care Team Providers Name Role Phone Unavailable [...] How often do you attend confucianism or yarsanism More than 4 time s [...]
--- OUTSIDE RECORDS SUMMARY | 2022-07-17 08:14 | XMS_ITS | Encounter Summary ---
:1985 Author Organization [facility] Address [address] [place] [address] Care Team Providers Name Role Phone Unavailable [...] How often do you attend caodaism or christian More than 4 time s [...] Provider Ser - 2007 10:20 AM CDT [id number] Source: [facility] Document Id: [id number] Miscellaneous - Conversion, Historical Provider Ser - 2007 10:20 AM CDT [id number] [facility] [address] [facility], [address] Name: Carol Juarez Birthdate: 1985 SSN: [id number] [facility] Allergy: No known allergies Discharge Date: 2007 [...] as above Diet: regular Appointment(s): To call [phone] by 5 pm to verify that you [...] documentation info: (time, how & by). Source: [facility] RWHXTRANSXRTFSYS Document Id: [id number] Miscellaneous - Conversion, Historical Provider Ser - 2007 10:20 AM CDT [id number] [address] [place] [address] Name: Carol Juarez Birthdate: 1985 SSN: [id number] [facility] Allergy: No known allergies Discharge Date: 2007 Obstetrical Discharge Instructions Information given to patient: [facility] Immunization - {YES-NO Default Yes:4444::Yes} Notice of Phone Call / Classes - {YES-NO Default Yes:4444::Yes} Parenting Newsletter - {YES-NO Default Yes:4444::Yes} Public Health Referral - {YES-NO Default Yes:4444::Yes} Social Work Services Referral - {YES-NO Default Yes:4444::Yes} -Information for Medical Records - {YES-NO Default Yes:4444::Yes} Discharged to: Home. Activities: {[facility]IV[facility]:446611::-Up as tolerated} Medications: {:PLEASE INCLUDE THE TIME [...] documented {:time}. Nursing Instructions: { OB HOSP [place] NURSE INSTRUCT:000918::Nothing per Vagina for 6 weeks, As instructed by your provider.} Diet: { OB [facility] DIET:521173} Appointment(s): Mother's Appointment: To see . Baby's [...] documentation info: (time, how & by). Source: [facility] RWMCHXTRANSXRTFSYS Document Id: [id number] documented in this encounter Plan of Treatment Not on filedocumented as of this encounter Visit Diagnoses Not on filedocumented in this encounter
--- OUTSIDE RECORDS SUMMARY | 2022-07-17 08:14 | XMS_ITS | Encounter Summary ---
:1985 Author Organization [facility] Address [address] [place] [address] Care Team Providers Name Role Phone Unavailable Primary Care Provider Unavailable Encounter Details Date Type Department Care Team Description 08/26/2007 Hospital Encounter HX [facility] Casi Vo M.D. [address] [place], [place] [phone] (Wo rk) Social History [...] How often do you attend protestant or voodoo More than 4 time s [...] Grove M.D. - 08/26/2007 9:30 AM CST [id number] Less GERD, not taking it now. Had US today. KG [facility] RWHX[facility]ANS[facility] Document Id: [id number] documented in this encounter Plan of Treatment Not on filedocumented as of this encounter Visit Diagnoses Not on filedocumented in this encounter
--- OUTSIDE RECORDS SUMMARY | 2022-07-17 08:14 | XMS_ITS | Encounter Summary ---
:1985 Author Organization [facility] Address [address] [place] [address] Care Team Providers Name Role Phone Unavailable Primary Care Provider Unavailable Encounter Details Date Type Department Care Team Description 06/01/2007 Hospital Encounter HX [facility] XRAY Provider, Histori huma Social [...]
--- OUTSIDE RECORDS SUMMARY | 2022-07-17 08:14 | XMS_ITS | Encounter Summary ---
:1985 Author Organization [facility] Address [address] [place] [address] Care Team Providers Name Role Phone Unavailable Primary Care Provider Unavailable Encounter Details Date Type Department Care Team Description 12/07/2007 Hospital Encounter [facility]X [facility] Marisol Galaviz, APR N, C.N.P. [address] [place], [place] [phone] (Wo rk) Social History [...] How often do you attend evangelical or uatsdin More than 4 time s [...] C.NBrittaneyP., R.N. - 12/07/2007 10:30 AM CDT [id number] Carol is here at Gestational Age: 38w. [...] Enc. to call with any concerns. Source: [facility] Document Id: [id number] Electronically signed by Conversion, [facility] Associate Chemist [id number] at 01/25/2017 2:07 AM CDT Marisol Irving C.N.P., R.N. - 12/07/2007 10:30 AM CDT [id number] Gestational Age: 38w GBS and HGB done today. plan and hospital arrival information given. C/O low back, leg and pelvic pain all the time. Hurts to stand more than 5 min at a time. BR Will limit work to 4 hours per day d/t increased edema. Warning signs discussed. FKC also discussed.ZENON Source: [facility] Document Id: [id number] Electronically signed by Conversion, [facility] Associate Chemist [id number] at 01/25/2017 2:07 AM CDT documented in this encounter Miscellaneous Notes Miscellaneous - Marisol Irving C.N.P., R.N. - 12/07/2007 10:30 AM CDT [id number] Date: 12/07/2007 Name: Carol Juarez Birthdate: 1985 The patient was seen at: [facility] today Restrictions if any: Please limit work to 4 hours per day. Marisol Irving RN, BRAIDING MACHINE TENDER OBSTETRICS/GYNECOLOGY [facility] Source: [facility] RWMCHXTRANSXRTFSYS Document Id: [id number] Electronically signed by Conversion, [facility] Associate Chemist [id number] at 01/25/2017 2:07 AM CDT documented in this encounter Plan of Treatment Not on filedocumented as of this encounter Visit Diagnoses Not on filedocumented in this encounter
--- OUTSIDE RECORDS SUMMARY | 2022-07-17 08:14 | XMS_ITS | Encounter Summary ---
:1985 Author Organization [facility] Address [address] [place] [address] Care Team Providers Name Role Phone Unavailable Primary Care Provider Unavailable Encounter Details Date Type Department Care Team Description 06/27/2007 Hospital En[facility] Marisol Galaviz, APR N, C.N.P. [address] [place], [place] [phone] (Wo rk) Social History [...] How often do you attend yazidism or bahai More than 4 time s [...] C.NLebron., R.N. - 06/27/2007 11:00 AM CST [id number] Addended by: MARISOL IRVING on: 06/29/2007 12:10:37 PM Modules accepted: Orders Source: [facility] Document Id: [id number] Electronically signed by Conversion, [facility] Agriculture Laboratory Technician [id number] at 01/25/2017 10:01 AM CDT Conversion, Historical Provider Ser - 06/27/2007 11:00 AM CST [id number] Addended by: LORENZO ARIAS on: 06/29/2007 1:34:55 PM Modules accepted: Orders Source: [facility] Document Id: [id number] Conversion, Historical Provider Ser - 06/27/2007 11:00 AM CST [id number] OK for message at home Genetic Screening: [...] to early sono done. She lives in [place] with mother. Carol has been feeling OK. She works at [employer]. Family is close and supportive. [facility]. Assessment: vitamins: Is taking them. Diet: Regular diet, no history of an eating disorder. Adequate calcium intake discussed. She has been referred to meet with the autocad draftsman. Transportation issues: none Safe relationship: She feels safe in current relationship. She has no history of abusive relationhips. Financial Concerns: doing OK Insurance: applying for [place] Social Service/Public Health: WIC She is a [...] questions. Referrals: None Source: [facility] Document Id: [id number] Marisol Irving C.NBrittaneyP., R.N. - 06/27/2007 11:00 AM CST [id number] Body mass index is 40.11 kg/(m`2). Obesity protocol. 1 GTT with next visit. Early sono done for dates. Applying for MA, WIC, GCPH consult ordered. Quitting smoking. ZENON Source: [facility] Document Id: [id number] Electronically signed by Conversion, [facility] Agriculture Laboratory Technician [id number] at 01/25/2017 10:01 AM CDT documented in this encounter Miscellaneous Notes Miscellaneous - Conversion, Historical Provider Ser - 06/27/2007 11:00 AM KISS SETTER HAND [id number] Carol Juarez [address] [place] [phone] June 29, 2007 Dear Carol Juarez, I am happy to inform you that your recent cervical cancer screening test (PAP smear) was normal. Preventative screening such as this helps insure your health for years to come. Congratulations for taking care of yourself! Please contact my office if you have any further questions. [phone]. Sincerely, Marisol Irving RN, MECHANIC SOUND TECHNICIAN OBSTETRICS/GYNECOLOGY [facility] Source: [facility] Document Id: [id number] Miscellaneous - Marisol Irving C.N.P., R.N. - 06/27/2007 11:00 AM CST [id number] Carol Juarez [address] [place] [address] June 29, 2007 MR#: [id number] Dear Carol, I am happy to inform [...] free to give me a call at [phone]. Sincerely, Marisol Irving RN,MECHANIC SOUND TECHNICIAN billet straightener [facility] Source: [facility] Document Id: [id number] Electronically signed by Conversion, [facility] Agriculture Laboratory Technician [id number] at 01/25/2017 10:01 AM CDT documented in this encounter Plan of Treatment Not on filedocumented as of this encounter Visit Diagnoses Not on filedocumented in this encounter
[2022-07-17 12:59] LABS: HCG Quantitative* 44.91 mIU/mL
== END 2022-07-17 15:42 | disposition home or self-care (01) ==
PROVIDERS: Visit Provider Obstetrics & Gynecology
DX: O02.1 Missed abortion (principal)
CPT/HCPCS: 84702

== ENCOUNTER 2022-07-24 15:41 | Outpatient (CLI) | payer OTHER, SELFPAY ==
--- OUTSIDE RECORDS SUMMARY | 2022-07-24 08:22 | XMS_ITS | Encounter Summary ---
:1985 Author Organization [facility] Address [address] [place] [address] Care Team Providers Name Role Phone Alberto Locke M.D. Primary Care Provider Encounter Details Date Type Department Care Team Description 06/09/2022 Clinical Support [facility] in [address] [phone] Social History Tobacco Use Types Packs/Day [...] Score: 9 07/08/2020 3:59 PM EDUCATION AND OUTREACH COORDINATOR documented as of this encounter Care Teams Computer Systems Information Director Relationship Specialty Start Date End Date Alberto Locke M.D. PCP - General Family Medicine 04/27/19 [address] [place] [address] documented as of this encounter
--- OUTSIDE RECORDS SUMMARY | 2022-07-24 08:22 | XMS_ITS | Encounter Summary ---
:1985 Author Organization [facility] Address [address] [place] [address] Care Team Providers Name Role Phone Alberto Locke M.D. Primary Care Provider Reason for Visit Reason Comments Ankle Injury Encounter Details Date Type Department Care Team Description 05/26/2022 Emergency [place] [facility], Jeaneth Bustillos, Inj ury Ankle Initial Right (Primary Dx); Department P.A.-C. Sprain Ankle Initial Right [address] [place] [phone] Social History Tobacco Use Types Packs/Day [...] How often do you attend protestant or baptist More than 4 time s [...] be sent through Care Everywhere. Ankle Sprain (Croatian)documented in this encounter Medications at Time [...] disposition will be home. Nuno Quijano, ZEYAD, WAFER POLISHING LEAD WORKER, FRAME EXPANDER-C, AGACNP-BC, ENP-C Emergency Medicine Nuno Quijano C.N.P. [...] Hemorrhage Gastrointestinal 11/13/2017 Hypertension NOS Hypovolemic Shock ([facility]) 11/11/2017 Sleep Apnea does not use CPAP machine Patient Active Problem List Diagnosis Body Mass Index 60.0 To 69.9 Adult ([facility]) Abuse Tobacco Smoking Migraine Headache Apnea Sleep Obstructive Gastroesophageal Reflux Disease NOS Attention Deficit With Hyperactivity Disorder Depression Major Recurrent ([facility]) Diarrhea Medications: No current facility-administered medications [...] Depression Total Score: 9 07/08/2020 3:59 PM BROACHING MACHINE SET UP OPERATOR documented as of this encounter Care Teams Casino Cashier Relationship Specialty Start Date End Date Alberto Locke M.D. PCP - General Family Medicine 04/27/19 [address] [place] [phone] documented as of this encounter
--- OUTSIDE RECORDS SUMMARY | 2022-07-24 08:22 | XMS_ITS | Encounter Summary ---
:1985 Author Organization [facility] Address [address] [place] [address] Care Team Providers Name Role Phone Alberto Locke M.D. Primary Care Provider Encounter Details Date Type Department Care Team Description 05/13/2022 Orders Only Department of [place], Surveillance Obstetrics and Rusty Santiago M.D. Intrauterine Device Gynecology in [facility] [address] (Primary Dx) [place] [address] [address] [place] [address] Social History Tobacco Use Types [...] Depression Total Score: 9 07/08/2020 3:59 PM COBBLER SOLE documented as of this encounter Care Teams Tow Truck Dispatcher Relationship Specialty Start Date End Date Alberto Locke M.D. PCP - General Family Medicine 04/27/19 [address] [phone] documented as of this encounter
--- OUTSIDE RECORDS SUMMARY | 2022-07-24 08:22 | XMS_ITS | Encounter Summary ---
:1985 Author Organization [facility] Address [address] [place] [address] Care Team Providers Name Role Phone Alberto Locke M.D. Primary Care Provider Reason for Visit Outpatient (Routine) - Canceled Specialty Diagnoses / Procedures Referred By Contact Refer red To Contact Diagnoses Surveillance Intrauterine Device [place], Oluwafunmilayo O, [facility] Region Procedures US Pelvis Transvaginal and Transabdominal US Pelvis Transvaginal and Transabdominal M.DBrittaney [address] [place] [address] Referral ID Status Reason Start Date Expiration Date Visits V isits Requested Authorized [id number] Canceled 05/13/2022 05/13/2023 1 1 Encounter Details Date Type Department Care Team Description 05/13/2022 Hospital Department of [place], Surveillance Encounter Radiology in Red [place]lu[place]milay[place] O, Intrau terine Device [place], [place] M.DBrittaney [address] [facility] [address] [place] [phone] (Wo rk) Social History Tobacco Use Types [...] How often do you attend faith or uatsdin More than 4 time s [...] Unknown, NGA: N/A INTRAUTERINE Pole: Not seen, [place]-Rump Length: N/A Gestational Sac: Normal Yolk Sac: [...] Unknown, NGA: N/A INTRAUTERINE Pole: Not seen, [place]-Rump Length: N/A Gestational Sac: Normal Yolk Sac: [...] Depression Total Score: 9 07/08/2020 3:59 PM SCIENCE INSTRUCTOR documented as of this encounter Care Teams Forest Examiner Relationship Specialty Start Date End Date Alberto Locke M.D. PCP - General Family Medicine 04/27/[address] [place] [address] documented as of this encounter
--- OUTSIDE RECORDS SUMMARY | 2022-07-24 08:22 | XMS_ITS | Encounter Summary ---
:1985 Author Organization [facility] Address [address] [place] [address] Care Team Providers Name Role Phone Alberto Locke M.D. Primary Care Provider Encounter Details Date Type Department Care Team Description 05/13/2022 Hospital Department of [place], Frequency Urin shonna Encounter Laboratory Rusty Santiago, Medicine in [address] [phone] Social History Tobacco Use Types Packs/Day Years [...] How often do you attend rastafarian or mandaen More than 4 time s [...] (05/13/2022 12:30 PM CDT) Analysis Performed At [facility] Time Signature Source Urine, Urine, 05/13/2022 R[facility] [...] 8.0 05/13/2022 12:51 PM CDT RDW[facility] Specific [place] >=1.030 1.001 - 1.035 05/13/2022 12:51 PM [...] M.D. LAB URINE ORDERABLES Performing Organization Address City/[facility]/ZIP Code Phon e Number [facility]- [address] [place], [place] [address] [place] [address] System in [place] [address] (ABNORMAL) Bacterial Culture, Aerobic + Susc, Urine (05/13/2022 12:30 PM CDT) [facility] gist Method Time Signature Urine Culture Mixed 05/14/2022 ECLR microbiota (A) 6:52 PM CDT Specimen Anatomical Collection Method Collection Time Receive d Time (Source) Location / / Volume Laterality Urine (Urine, 05/13/2022 12:30 05/13/2022 9:38 Midstream) PM CDT PM CDT Comment: Specimen Source Site: Urine Rusty Guevara M.D. LAB MICROBIOLOGY - GENE RAL ORDERABLES Performing Organization Address City/[facility] Phon e Number [facility]- [address] [place] [address] [phone] [facility] [place] [address] System in [address] documented in this encounter Visit Diagnoses Diagnosis Frequency Urinary documented in this encounter Additional Health Concerns Assessment Noted Time PHQ-9 Depression Total Score: 9 07/08/2020 3:59 PM SUPERVISOR TRAVEL TRAILER documented as of this encounter Care Teams Guard Range Relationship Specialty Start Date End Date Alberto Locke M.D. PCP - General Family Medicine 04/27/19 [address] [place] [phone] documented as of this encounter
--- OUTSIDE RECORDS SUMMARY | 2022-07-24 08:22 | XMS_ITS | Clinical Summary ---
:1985 Author Organization [facility] Address [address] [place] [address] Care Team Providers Name Role Phone Alberto Locke M.D. Primary Care Provider Source Comments Patient records contain information from all sites at [facility]. For routine questions regarding patient records, call [phone] during business hours, M-F 8:00 AM - 5:00 PM Central Time. Record requests for emergency care only can be directed to [phone] at any time.[facility] Allergies Active Allergy Reactions Severity Noted [...] Added automatically from request for guillermina arreola [id number] Body Mass Index 60.0 To 69.9 Adult [...] Added automatically from request for guillermina arreola [id number] Hemorrhage Gastrointestinal 11/13/2017 02/18/2018 Pain Right Upper Quadrant 11/11/2017 04/20/2019 Melena 11/11/2017 02/18/2018 Overview: Added automatically from request for guillermina arreola [id number] Hypovolemic Shock 11/11/2017 02/18/2018 Calculus Of Bile Duct Without Cholangitis Or Cholecystitis W ith 11/08/2017 04/20/2019 Obstruction Overview: Added automatically from request for guillermina arreola [id number] Appendicitis Acute 09/08/2017 09/17/2017 Overview: Added automatically from request for guillermina arreola [id number] Obesity Unspecified 05/01/2014 02/18/2018 Encounters Date Type Specialty Care Team Description 06/09/2022 Clinical Support Family Medicine Prisca Olvera, C.M.A. 05/26/2022 Emergency Emergency Jeaenth Earl, Injury Ankle Initial Right (Primary Dx); [...] Nicolette Moise, Pain Knee Le ft Surgery INSPECTOR PURCHASED PARTS, C.N.P., D.N.P. (Primar y Dx) 05/02/2022 Emergency [...] How often do you attend orthodox or hoahaoism More than 4 time s [...] history exists Medical Devices Implanted Type Area Temperature Inspector Device Shelf Model / Identifier Expiration Serial / Date Lot Hardware E.G. Hardware Abdomen Pins/Screws/Ro e.g. ds pins/screws/ rods Description: Clamp for GI bleed Nexplanon-07/20/2018 Other/Legacy - See Arm 10/07/2020 / Implanted: 07/20/2018 by Leonora Reaves APRN, C.N.P. ( Quantity not on file) Implant Description / [id number] Procedures Procedure Name Priority Date/Time Associated Comments [...] Device are in the outpatients) results section. [place] REMOVAL OF Routine 05/13/2022 1:15 Surveillance Results [...] Jeaneth Earl P.A.-C. IMG DIAGNOSTIC IMAGING PROCE [facility] US OB First Trimester and Transvaginal (05/13/2022 [...] Unknown, NGA: N/A INTRAUTERINE Pole: Not seen, [place]-Rump Length: N/A Gestational Sac: Normal Yolk Sac: [...] Unknown, NGA: N/A INTRAUTERINE Pole: Not seen, [place]-Rump Length: N/A Gestational Sac: Normal Yolk Sac: [...] Rusty Guevara M.D. IMG OB US PROCEDURES [place] REMOVAL OF INTRAUTERINE DEVICE (05/13/2022 1:15 PM [...] M.D. OB GYNE ORDERABLES Performing Organization Address City/[facility] Phon e Number MMODAL MMODAL NA [...] - GENE RAL ORDERABLES Performing Organization Address [facility] Phon e Number [facility]- [address] [place] [phone] [facility] [place] [address] System in [address] (ABNORMAL) Urinalysis with Microscopic: (05/13/2022 12:30 [...] 8.0 05/13/2022 12:51 PM CDT RDWG Specific [place] >=1.030 1.001 - 1.035 05/13/2022 12:51 PM [...] Organization Address City/State/ZIP Code Phon e Number [facility]- [address] [place], [place] [address] [place] [address] System in [place] [address] (ABNORMAL) hCG (Human Chorionic Gonadotropin), Quantitative, (05/13/2022 12:07 PM CDT) Analysis Performed At Patho logist Time Signature HCG, [address] (H) <5 IU/L 05/13/2022 RDWG Quantitative, 1:11 PM CDT , P Specimen Anatomical Collection Method Collection Time Receive d Time (Source) Location / / Volume Laterality Blood (Blood, 05/13/2022 12:07 05/13/2022 Venous) PM CDT 12:21 PM CDT Rusty Guevara M.D. LAB BLOOD ADD-ON Performing Organization Address City/State/ZIP Code Phon e Number [facility]- [address] [place], [place] [address] [place] [address] System in [place] [address] from Last 3 Months Insurance Payer Benefit Plan Subscriber ID Effective Dates Phone Address Type / Group [facility] [id number] 2018-Tana [phone] [address] [id number] PPO EMPLOYEE PLAN t [address] [id number] (Home) [place] [address] (Work) Advance Directives For more information, please contact: [phone] Latest Code Status on File Code Status [...] Due to: Not medically appropriate Care Teams Electrical Maintenance Man Relationship Specialty Start Date End Date Alberto Locke M.D. PCP - General Family Medicine 04/27/19 [address] [place] [address]
--- OUTSIDE RECORDS SUMMARY | 2022-07-24 08:23 | XMS_ITS | Encounter Summary ---
:1985 Author Organization [facility] Address [address] [place] [address] Care Team Providers Name Role Phone Alberto Locke M.D. Primary Care Provider Reason for Referral Outpatient (Routine) - Closed Specialty Diagnoses / Procedures Referred By Contact Refer marko To Contact Diagnoses Edema Dyspnea On Exertion Shortness Of Breath Nichole Maria M.D. [facility] [place] [facility] Procedures DX Chest AP or PA and Lateral 2 Views [address] [place] [address] Referral ID Status Reason Start Date Expiration Date Visits Requ ested Visits Authorized [id number] Closed 11/04/2021 11/04/2022 1 1 Reason for Visit Outpatient (Routine) - Closed Specialty Diagnoses / Procedures Referred By Contact Refer marko To Contact Diagnoses Edema Dyspnea On Exertion Shortness Of Breath Nichole Maria M.D. [facility] [place] [facility] Procedures DX Chest AP or PA and Lateral 2 Views [address] [place] [address] Referral ID Status Reason Start Date Expiration Date Visits Requ ested Visits Authorized [id number] Closed 11/04/2021 11/04/2022 1 1 Encounter Details Date Type Department Care Team Description 11/04/2021 Hospital Encounter Department of Nichole Maria; Radiology in Marko Barrett M.D. Dyspnea On Exertion; [place] [address] Dennis[address] carlos Shortness Of Breath [address] [place] [phone] Social History Tobacco Use Types Packs/Day [...] How often do you attend confucianist or rastafarian More than 4 time s [...] Depression Total Score: 9 07/08/2020 3:59 PM INSURANCE VERIFICATION REPRESENTATIVE documented as of this encounter Care Teams Ruby Developer Relationship Specialty Start Date End Date Alberto Locke M.D. PCP - General Family Medicine 04/27/19 [place] [phone] documented as of this encounter
--- OUTSIDE RECORDS SUMMARY | 2022-07-24 08:23 | XMS_ITS | Encounter Summary ---
:1985 Author Organization [facility] Address [address] [place] [address] Care Team Providers Name Role Phone Alberto Locke M.D. Primary Care Provider Reason for Visit Reason Comments Results [facility] Encounter Details Date Type Department Care Team Description 01/18/2022 Clinical Communication Division of Tracy Wolf ([facility]) Community Internal Kimberli Purdy R.N. [facility] 200 [facility] [address] [place] [phone] 200 [facility] [place] [id number] Social History Tobacco Use Types Packs/Day Years [...] How often do you attend worship or samaritan More than 4 time s [...] to pay for the very basics like Comic Wonder hat hard 07/09/2020 food, housing, medical care, [...] 3:55 PM CDT M[facility] TELEPHONE COMMUNICATION NOTE Creative Writing Teacher: None The patient was called regarding a [...] your primary care provider or present to [facility] emergency [facility] for evaluation. Treatment Options [...] effects may happen. You would need to pepper picker and start the medication within 5 days of symptom onset, and you would take the medication twice a day for 5 days. You would need to have someone who is not in isolation or quarantine for COVID-19 pepper picker the prescription at a [facility] pharmacy. The medication is provided at [...] effects of the drug on milk production. [facility] advises that mothers should pump and [...] to decide.The patient was counselled to call [facility] at [phone] if they change their mind. Reviewed that [...] references were used: Nursing or Provider judgement, [facility], [facility] Protocols Kimberli Wolf R.N. [place] COVID Care Team [facility] Telephone Encounter - Kimberli Wolf R.N. [...] for: Paxlovid and Molnupiravir. Kimberli Wolf R.N. [place] COVID Care Team and [place] COVID Infusion Therapy Team [facility] documented in this encounter Plan of Treatment Not on filedocumented as of this encounter Visit Diagnoses Not on filedocumented in this encounter Additional Health Concerns Infection Onset Date Last Indicated Resolved Time COVID19 01/16/2022 01/16/2022 02/05/2022 9:06 AM CDT Assessment Noted Time PHQ-9 Depression Total Score: 9 07/08/2020 3:59 PM WHISTLE PUNK documented as of this encounter Care Teams Kiln Remover Relationship Specialty Start Date End Date Alberto Locke M.D. PCP - General Family Medicine 04/27/19 [address] [place] [phone] documented as of this encounter
--- OUTSIDE RECORDS SUMMARY | 2022-07-24 08:23 | XMS_ITS | Encounter Summary ---
:1985 Author Organization [facility] Address [address] [place] [address] Care Team Providers Name Role Phone Alberto Locke M.D. Primary Care Provider Reason for Referral Outpatient (Routine) - Authorized Specialty Diagnoses / Procedures Referred By Contact Refer red To Contact Diagnoses Surveillance Intrauterine Device Examination Test With Positive Result (HCC) Rusty Guevara [facility] Procedures IUD Removal M.Kelly [address] [place] [address] Referral ID Status Reason Start Date Expiration Date Visits V isits Requested Authorized [id number] Authorized 05/13/2022 05/13/2023 1 1 utpatient (Routine) - Authorized Specialty Diagnoses / Referred By Contact Referred To Procedures Contact Obstetrics and Rusty Guevara [facility] Gynecology Sera Santiago [address] [place] [address] Referral ID Status Reason Start Date Expiration Date Visits V isits Requested Authorized [id number] Authorized 05/13/2022 05/12/2025 1 1 Reason for Visit Reason Comments Follow-up Appointment Request (Routine) - Closed Specialty Diagnoses / Procedures Referred By Contact Refer red To Contact Obstetrics and Gynecology Referral ID Status Reason Start Date Expiration Date Visits Requ ested Visits Authorized [id number] Closed 05/13/2022 05/13/2023 1 Encounter Details Date Type Department Care Team Description 05/13/2022 Office Visit Department of [place], Not Reason For Visit (HCC) (Primary Dx); Obstetrics and Rusty Santiago M.D. Surveillance Intrauterine Device; Gynecology in [facility] [address] Infection Urinary Tract Acute; [place], [place] Examination Test W ith Positive Result (HCC) [address] [facility] [address] [place], [place] [phone] (Wo rk) [address] [phone] Social History Tobacco Use Types Packs/Day Years [...] often do you attend latter day or zoroastrian More than 4 time s [...] 07/2020. She denies any abdominal pain. OBJECTIVE Sack Filler- Taryn Ruiz PAYROLL BOOKKEEPER VITAL SIGNS Blood Pressure: (139)/(71) 139/71 Weight: [...] PM Result Value HCG, Quantitative, , P [address] (H) Urinalysis with Microscopic: Collection Time: 05/13/22 12:30 PM Result Value Source Urine, Urine, Midstream Clarity Slightly Cloudy (A) Color Yellow Blood Large (A) Nitrite Negative Leukocyte Esterase Moderate (A) Protein Trace Glucose Negative Ketones, QI(U) Negative Bilirubin Negative pH 5.5 Specific [place] >=1.030 Urobilinogen 0.2 White Blood Cells 11-20 [...] for a repeat ultrasound to confirm viability. DIAMOND SAW OPERATOR documented in this encounter Plan of Treatment Scheduled Orders Name Type Priority Associated Order Schedule Diagnoses US OB First Trimester Imaging RAD - Routine (most No t Expected: and Transvaginal inpatients and all Reason For Visit 1 outpatients) ([facility]) (Approximate), Expires: 08/12/2023 Scheduled Referrals Name Type Priority Associated Order Schedule Diagnoses Obstetrics and Outpatient Referral Routine Expect ed: Gynecology office 05/27/2022 visit (clinic) (Approximate) , Expires: 08/12/2023 documented as of this encounter Procedures Procedure Name Priority Date/Time Associated Diagnosis Comme nts W[place] REMOVAL OF Routine 05/13/2022 1:15 PM Surveillance Results for this INTRAUTERINE DEVICE CDT Intrauterine Device procedure are in the results Examination Test section. With Positive Result (HCC) documented in this encounter Results [place] REMOVAL OF INTRAUTERINE DEVICE (05/13/2022 1:15 PM [...] Depression Total Score: 9 07/08/2020 3:59 PM MULTIPLE PUNCH PRESS OPERATOR documented as of this encounter Care Teams Fluid Designer Relationship Specialty Start Date End Date Alberto Locke M.D. PCP - General Family Medicine 04/27/19 [address] [place] [phone] documented as of this encounter
--- OUTSIDE RECORDS SUMMARY | 2022-07-24 08:23 | XMS_ITS | Encounter Summary ---
:1985 Author Organization [facility] Address [address] [place] [address] Care Team Providers Name Role Phone Alberto Locke M.D. Primary Care Provider Encounter Details Date Type Department Care Team Description 02/25/2022 Orders Only [facility] Sa emma Lemos M.D. Screening Lipid [address] [place] [phone] (Wo rk) Social History Tobacco Use Types [...] How often do you attend baptist or mormon More than 4 time s [...] Depression Total Score: 9 07/08/2020 3:59 PM COMPOSITION WEATHERBOARD APPLIER documented as of this encounter Care Teams Napkin Band Wrapper Relationship Specialty Start Date End Date Alberto Locke M.D. PCP - General Family Medicine 04/27/19 [address] [place] [address] documented as of this encounter
--- OUTSIDE RECORDS SUMMARY | 2022-07-24 08:23 | XMS_ITS | Encounter Summary ---
:1985 Author Organization [facility] Address [address] [place] [address] Care Team Providers Name Role Phone Alberto Locke M.D. Primary Care Provider Reason for Visit Reason Comments Follow-up Encounter Details Date Type Department Care Team Description 05/13/2022 Clinical Communication Department of Nichole Ivey Follow-up Obstetrics and A, R.N. Gynecology in [address] [address] [place], [place] [phone] (Work) [phone] Social History Tobacco Use Types Packs/Day Years [...] to pay for the very basics like Smailex hat hard 07/09/2020 food, housing, medical care, [...] and informed of plan. Patient transferred to hr receptionist to schedule. Warning signs for ectopic [...] + Susc, Urine (05/13/2022 12:30 PM CDT) [facility] gist Method Time Signature Urine Culture [...] Phon e Number [facility]- [address] [place] [address] 54 [phone] [facility] [place] [address] (ABNORMAL) hCG (Human Chorionic Gonadotropin), Quantitative, (05/13/2022 12:07 PM CDT) Analysis Performed At Patho logist Time Signature HCG, [address] (H) <5 IU/L 05/13/2022 [facility] Quantitative, 1:11 PM CDT , P Specimen Anatomical Collection Method Collection Time Receive d Time (Source) Location / / Volume Laterality Blood (Blood, 05/13/2022 12:07 05/13/2022 Venous) PM CDT 12:21 PM CDT Rusty Guevara M.D. LAB BLOOD ADD-ON Performing Organization Address City/[facility]/ZIP Code Phon e Number [facility]- [address] [place] [address] [address] [facility] [place] [address] System in [place] Imer Motley documented in this encounter Visit Diagnoses Diagnosis Surveillance Intrauterine Device - Prima ry Frequency Urinary documented in this encounter Additional Health Concerns Assessment Noted Time PHQ-9 Depression Total Score: 9 07/08/2020 3:59 PM GRAPHIC ART SALES REPRESENTATIVE documented as of this encounter Care Teams Hvac Installation Technician Relationship Specialty Start Date End Date Alberto Locke M.D. PCP - General Family Medicine 04/27/19 [place] [phone] documented as of this encounter
--- OUTSIDE RECORDS SUMMARY | 2022-07-24 08:23 | XMS_ITS | Encounter Summary ---
:1985 Author Organization [facility] Address [address] [place] [address] Care Team Providers Name Role Phone Alberto Locke M.D. Primary Care Provider Encounter Details Date Type Department Care Team Description 01/16/2022 Admin Visit Department of [facility] Ian Hays, [facility] [address] [place] [address] [address] [place] [phone] (Wo rk) Social History Tobacco Use Types [...] to pay for the very basics like LiquiGlide hat hard 07/09/2020 food, housing, medical care, [...] Depression Total Score: 9 07/08/2020 3:59 PM JET MAN documented as of this encounter Care Teams Sr. Media Manager Relationship Specialty Start Date End Date Alberto Locke M.D. PCP - General Family Medicine 04/27/19 [address] [place] [phone] documented as of this encounter
--- OUTSIDE RECORDS SUMMARY | 2022-07-24 08:23 | XMS_ITS | Encounter Summary ---
:1985 Author Organization [facility] Address [address] [place] [address] Care Team Providers Name Role Phone Alberto Locke M.D. Primary Care Provider Reason for Visit Reason Comments Immunizations flu Encounter Details Date Type Department Care Team Description 07/11/2021 Clinical Support Department of Pediatrics Sa griffin Baxter, in [facility] L.P.N. 701 [facility] [address] [place] [address] [place], [place] [phone] [address] Social History Tobacco Use Types Packs/Day [...] often do you attend oriental orthodox or tenriism More than 4 time s [...] Depression Total Score: 9 07/08/2020 3:59 PM BOBBIN DISKER documented as of this encounter Care Teams Shell Coremaker Relationship Specialty Start Date End Date Alberto Locke M.D. PCP - General Family Medicine 04/27/19 [address] [place] [phone] documented as of this encounter
--- OUTSIDE RECORDS SUMMARY | 2022-07-24 08:23 | XMS_ITS | Encounter Summary ---
:1985 Author Organization [facility] Address [address] [place] [address] Care Team Providers Name Role Phone Alberto Locke M.D. Primary Care Provider Encounter Details Date Type Department Care Team Description 07/15/2021 Orders Only [facility] PCP [facility] MNT Frankie Locke M.D. 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 PCP - General Family Medicine 04/27/19 [address] [place] [phone] documented as of this encounter
--- OUTSIDE RECORDS SUMMARY | 2022-07-24 08:23 | XMS_ITS | Encounter Summary ---
:1985 Author Organization [facility] Address [address] [place] [address] Care Team Providers Name Role Phone Alberto Locke M.D. Primary Care Provider Reason for Referral Outpatient (Routine) - Authorized Specialty Diagnoses / Procedures Referred By Contact Refer red To Contact Family Medicine Diagnoses Diarrhea Pain Generalized Abdominal Nausea Alaina Stratton APRN [facility] C.N.P., D.N.P. [address] [place] [address] Referral ID Status Reason Start Date Expiration Date Visits V isits Requested Authorized [id number] Authorized 02/17/2022 02/17/2023 1 1 Reason for Visit Reason Comments Symptom Assessment Encounter Details Date Type Department Care Team Description 02/17/2022 Office Visit Department of Alaina Stratton Diarrhea (Pr imary Dx); Internal Medicine in JOSEFA Bustillos, C.N.P., [place]; [place], [place] D.N.P. Pain Generalized Abdominal; [address] Shortness Of Breath; [place], [place] Gastroesophagea l Reflux Disease Without Esophagitis [phone] Social History Tobacco Use Types Packs/Day Years [...] How often do you attend catholic or voodoo More than 4 time s [...] when she tries to eat. Recommended trying ijks-vew-squyjet Prilosec daily for up to 30 days. [...] Name Type Priority Associated Diagnoses Order S [facility] Medicine Outpatient Referral Routine Diarrhea Expected: [...] Panel, PCR, Feces (02/17/2022 7:48 PM CDT) [facility] Method Time Signature Specimen Source STOOL [...] using the FDA-cl eared FilmArray GI Panel ([employer] Specimen Anatomical Collection Method Collection Time Receive d Time (Source) Location / / Volume Laterality Stool (Stool) 02/17/2022 7:48 PM 02/18/20 7:48 CDT PM CDT Alaina Stratton APRN C.N.P., D.N.P. LAB MICROBIOLOGY - GENERAL ORDERABLES Performing Organization Address City/State/ZIP Code Phon e Number [facility]- [address] [place], [place] [address] [address] [place] [address] System in [place] [place] Test, POCT, Urine (lab) (02/17/2022 [...] City/State/ZIP Code Phon e Number [facility]- [address] [place], [place] [address] [place] [address] System in [place] [address] [place] NT-Pro B-Type Natriuretic Peptide (BNP) (02/17/2022 6:38 [...] City/State/ZIP Code Phon e Number [facility]- [address] [place], [place] [address] [place] [address] System in [place] [address] [place] (ABNORMAL) CRP (C-Reactive Protein) (02/17/2022 6:38 PM CDT) athologist [facility] C-Reactive 21.7 (H) <=8.0 mg/L 02/17/2022 [facility] Protein (CRP), 7:10 PM CDT P Specimen Anatomical Collection Method Collection Time Receive d Time (Source) Location / / Volume Laterality Blood (Blood, 02/17/2022 6:38 PM 02/18/20 6:44 Venous) CDT PM CDT Marlyn Rosenberg APRN.N.P., D.N.P. LAB BLOOD ADD-ON Performing Organization Address City/[facility] Phon e Number [facility]- 701 [facility] [place], [place] [address] [place] [address] System in [place] [address] [place] [address] Lipase (02/17/2022 6:38 PM CDT) athologist [facility] Lipase, P 22 13 - 60 U/L 02/17/2022 7:10 [facility] PM CDT Specimen Anatomical Collection Method Collection Time Receive d Time (Source) Location / / Volume Laterality Blood (Blood, 02/17/2022 6:38 PM 02/18/20 6:44 Venous) CDT PM CDT Marlyn Rosenberg APRN.N.P., D.N.P. LAB BLOOD ADD-ON Performing Organization Address City/[facility]/ZIP Code Phon e Number [facility]- 701 [facility] [place], [place] [address] [place] [address] System in [place] [address] [place], [place] [address] Comprehensive Metabolic Panel (02/17/2022 6:38 PM CDT) [...] CDT eGFR-Black/Afric >90 >=60 02/17/2022 [facility] an Bhutanese mL/min/BSA 7:10 PM CDT Comment: ----ADDITIONAL INFORMATION---- [...] City/State/ZIP Code Phon e Number [facility]- 701 [facility] [place] [address] [place] [address] System in [place] 701 [facility] (ABNORMAL) CBC with Differential, Blood (02/17/2022 6:38 PM CDT) [facility] Method Time Signature Hemoglobin 15.5 (H) [...] City/State/ZIP Code Phon e Number [facility]- [address] [place], [place] [address] [place] [address] System in [place] [address] documented in this encounter Visit Diagnoses Diagnosis Diarrhea - Primary Nausea Pain Generalized Abdominal Shortness Of Breath Gastroesophageal Reflux Disease Without Esophagitis documented in this encounter Additional Health Concerns Assessment Noted Time PHQ-9 Depression Total Score: 9 07/08/2020 3:59 PM BOTTOMING ROOM SUPERVISOR documented as of this encounter Care Teams Commodity Analyst Relationship Specialty Start Date End Date Alberto Locke M.D. PCP - General Family Medicine 04/27/19 [address] [place] [address] documented as of this encounter
--- OUTSIDE RECORDS SUMMARY | 2022-07-24 08:23 | XMS_ITS | Encounter Summary ---
:1985 Author Organization [facility] Address [address] [place] [address] Care Team Providers Name Role Phone Alberto Locke M.D. Primary Care Provider Reason for Referral Outpatient (Routine) - Authorized Specialty Diagnoses / Procedures Referred By Contact Refer red To Contact Orthopedic Surgery Nicolette Moise APRN, [facility] [place] [facility] C.N.P., D.N.P. [address] [place] [address] Referral ID Status Reason Start Date Expiration Date Visits V isits Requested Authorized [id number] Authorized 05/05/2022 05/04/2025 1 1 RI/CAT/PET Scan (Routine) - Pending Review Specialty Diagnoses / Procedures Referred By Contact Refer red To Contact Radiology Diagnoses Pain Knee Left Nicolette Moise APRN, [facility] [place] [facility] Procedures MR Knee Left without IV Contrast C.N.P., D.N.P. [address] [place] [address] Referral ID Status Reason Start Date Expiration Date Visits V isits Requested Authorized [id number] Pending 05/05/2022 05/05/2023 1 1 Review Encounter Details Date Type Department Care Team Description 05/05/2022 Orders Only Department of Nicolette Moise L, Pain Knee L eft Orthopedic Surgery in [place], (Prim shonna Dx) Caroline Toure D.N.P. 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 PCP - General Family Medicine 04/27/19 [address] [place] [phone] documented as of this encounter
--- OUTSIDE RECORDS SUMMARY | 2022-07-24 08:23 | XMS_ITS | Encounter Summary ---
:1985 Author Organization [facility] Address [address] [place] [address] Care Team Providers Name Role Phone Alberto Locke M.D. Primary Care Provider Reason for Referral Outpatient (Routine) - Authorized Specialty Diagnoses / Procedures Referred By Contact Refer red To Contact Diagnoses Edema Dyspnea On Exertion Shortness Of Breath Nichole Maria M.D. [facility] Region Procedures ECG 12 Lead [address] [place] [phone] Referral ID Status Reason Start Date Expiration Date Visits V isits Requested Authorized [id number] Authorized 11/04/2021 11/04/2022 1 1 Outpatient (Routine) - Closed Specialty Diagnoses / Procedures Referred By Contact Refer red To Contact Diagnoses Edema Dyspnea On Exertion Shortness Of Breath Nichole Maria M.D. [facility] Procedures DX Chest AP or PA and Lateral 2 Views [address] [place] [address] Referral ID Status Reason Start Date Expiration Date Visits Requ ested Visits Authorized [id number] Closed 11/04/2021 11/04/2022 1 1 Reason for Visit Reason Comments Edema Bilateral lower legs, with d izziness. Ongoing x several weeks Appointment Request (Routine) - Closed Specialty Diagnoses / Procedures Referred By Contact Refer red To Contact Family Medicine Referral ID Status Reason Start Date Expiration Date Visits Requ ested Visits Authorized [id number] Closed 11/04/2021 11/04/2022 1 1 Encounter Details Date Type Department Care Team Description 11/04/2021 Office Visit Department of Nichole Maria, Edema ( Primary Dx); Internal Medicine in M.D. Dyspnea On Exertion; [place], [place] [address] Shortness Of Breath; [address] [place], [place] Headache New; [place] [address] Apnea Sleep Obstructive [address] [phone] Social History Tobacco Use Types Packs/Day Years [...] How often do you attend nondenominational or anglican More than 4 time s [...] section within an hour of betting to [facility]. That was 3 years ago. She [...] concerning arrhythmias or atypical ST segmentchanges or CT interval issues. CXR per my personal review, [...] and afebrile. Suspect benign. Conservative therapies with dggq-oym-ugscwbw meds, stretching, relaxation ensuring adequate hydration and [...] d isease. Nichole [facility]AG[facility] ECG 12 Lead (11/04/2021 3:40 PM CDT) P athologist Signature Ventricular Rate 82 BPM MUSE ECG/Min CT Interval 146 ms MUSE QRSD Interval 74 ms MUSE QT Interval 360 ms MUSE QTC Interval 420 ms MUSE P [place] 49 degrees MUSE R [place] 55 degrees MUSE T Wave [place] 56 degrees MUSE Specimen Anatomical Collection Method [...] Phon e Number [facility]- [address] [place], [place] [address] [address] [facility] [place] [facility] [place] [address] System in [place] [address] hCG (Human Chorionic Gonadotropin), [...] Phon e Number [facility]- [address] [place], [place] [address] [address] [place] [address] System in [place] [address] [place] [address] T4 (Thyroxine), Free (11/04/2021 3:23 PM CDT) [...] Phon e Number [facility]- [address] [place], [place] [address] [address] [facility] [place] [facility] [place] [address] System in [place] [address] [place], [place] [address] S-TSH (Thyroid-Stimulating Hormone - Sensitive) (11/04/2021 3:23 [...] Phon e Number [facility]- [address] [place], [place] [address] [address] [facility] [facility] [place] [address] System in [place] [address] [place] D-Dimer (11/04/2021 3:23 PM CDT) athologist Signature [...] Phon e Number [facility]- [address] [place], [place] [address] [address] [facility] [place] [facility] [place] [address] System in [place] [address] Basic Metabolic Panel (11/04/2021 3:23 PM CDT) [...] CDT eGFR-Black/Afric >90 >=60 11/04/2021 RDWG an Turkish mL/min/BSA 3:51 PM CDT Comment: ----ADDITIONAL INFORMATION---- [...] Phon e Number [facility]- [address] [place], [place] [address] [address] [place] [address] System in [place] [address] (ABNORMAL) CBC with Differential, [...] Phon e Number [facility]- [address] [place], [place] [address] [place], [place] [address] [address] [place] [address] System [address] [place] NT-Pro B-Type Natriuretic Peptide (BNP) (11/04/2021 3:23 [...] Phon e Number 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 PCP - General Family Medicine 04/27/[address] [place] [phone] documented as of this encounter
--- OUTSIDE RECORDS SUMMARY | 2022-07-24 08:23 | XMS_ITS | Encounter Summary ---
:1985 Author Organization [facility] Address [address] [place] [address] Care Team Providers Name Role Phone Alberto Locke M.D. Primary Care Provider Reason for Visit Reason Comments Outpatient COVID-19 Testing Encounter Details Date Type Department Care Team Description 07/15/2021 Emergency [place] [facility] [address] [place] [phone] Social History Tobacco Use Types [...] How often do you attend druze or tenriism More than 4 time s [...] - - Pulse 101 07/15/2021 8:01 PM NAVY DIVER Temperature - - Respiratory Rate 18 07/15/2021 8:01 PM NAVY DIVER Oxygen Saturation 94% 07/15/2021 8:01 PM NAVY DIVER Inhaled Oxygen Concentration - - Weight - - Height - - Body Mass Index - - documented in this encounter Discharge Instructions Discharge InstructionsMichelle Kennedy R.N. - 07/15/2021 8:22 PM CST COVID-19 disease from Coronavirus is rapidly changing. We recognize the uncertainty you may feel at this time, and want to assure you that [facility] is committed to your health and safety. To stay informed, it is highly recommended you seek information from a website that has the most accurate and recent information such as the CDC: https://www.cdc.gov/coronavirus/2019-ncov/downloads/skrl-qemv-8365- rIfJ-dagh-whdzb.pdf [place] Messages from the CDC link above. [...] positive, patients will be contacted by a [facility] provider. DIVER documented in this encounter Medications at Time [...] Result s for this COV-2, PCR, RAPID,V NAVY DIVER procedur e are in the results section. documented in this encounter Results Influenza A/B, SARS CoV-2, PCR, Rapid, Varies Symptomatic (07/15/2021 8:11 PM NAVY DIVER) [facility] Method Time Signature Influenza A, Negative Negative 07/15/2021 CNFL PCR, Rapid, V 8:38 PM NAVY DIVER Influenza B, Negative Negative 07/15/2021 CNFL PCR, Rapid, V 8:38 PM NAVY DIVER SARS CoV-2, Undetected Undetected 07/15/2021 CNFL PCR, Rapid, V 8:38 PM NAVY DIVER Comment: ----ADDITIONAL INFORMATION---- This RT-PCR test was performed using the Javy SARS-CoV-2 and Influenza A/B Reagent assay from [facility], which has received Emergency Use Authori zation(EUA) by the U.S. Food and Drug Administration . Fact sheets for this Emergency Use Autho rization (EUA) assay can be found at the following link s: For Healthcare Providers: https://www.fda.gov/media/896625/downloa d For Patients: https://www.fda.gov/media/173983/downloa d Infl A/B, SARS CoV-2, PCR, Source Swab, Nasopharynx 07/15/2021 8:38 PM NAVY DIVER CNFL Specimen Anatomical Collection Method Collection Time Receive d Time (Source) Location / / Volume Laterality Varies 07/15/2021 8:11 PM 8:17 (Nasopharynx) NAVY DIVER PM NAVY DIVER Cedric [place] P.A.-C. LAB MICROBIOLOGY - GENERAL O RDERABLES Performing Organization Address City/State/ZIP Code Phon e Number [facility]- [address] [place] [address] [place] [address] System [address] documented in this encounter Visit Diagnoses Not on filedocumented in this encounter Additional Health Concerns Infection Onset Date Last Indicated Resolved Time COVID19 Pending 07/15/2021 07/15/2021 07/15/2021 8:38 PM NAVY DIVER Assessment Noted Time PHQ-9 Depression Total Score: 9 07/08/2020 3:59 PM NAVY DIVER documented as of this encounter Care Teams Sculpture Instructor Relationship Specialty Start Date End Date Alberto Locke M.D. PCP - General Family Medicine 04/27/19 [address] [place] [address] documented as of this encounter
--- OUTSIDE RECORDS SUMMARY | 2022-07-24 08:23 | XMS_ITS | Encounter Summary ---
:1985 Author Organization [facility] Address [address] [place] [address] Care Team Providers Name Role Phone Alberto Locke M.D. Primary Care Provider Reason for Visit Reason Comments Vomiting Diarrhea COVID Nurse Line Encounter Details Date Type Department Care Team Description 02/17/2022 Nurse Triage Department of [facility] Gina Su V omiting; Diarrhea; Medicine, [place] O, R.N. COVID Nurse Line Clinic, in [place], [address] [place] [address] [address] [facility] [address] [place] [address] Social History Tobacco Use Types [...] How often do you attend moravian or worship More than 4 time s [...] 3 days. Patient was warm transferred to [place] at the clinic for further assistance. Reason for Disposition ? ? [1] MILD vomiting with diarrhea AND [2] present > 5 days Protocols used: [id number] Care Advice Patient/Caregiver understands and will follow [...] Powerade). * Other options: 1/2 strength flat lemon-[place] soda or yenni stewart. * After 4 [...] RSV and Strep Select appropriate region: : [place] Are all of the following Strep criteria [...] frequently with soap and water, use hand cdl service technician if soap and water aren't available. -Wear [...] care: Yes The following references were used: [facility] novel coronavirus (COVID- 19) resources documented in this encounter Plan of Treatment Not on filedocumented as of this encounter Visit Diagnoses Not on filedocumented in this encounter Additional Health Concerns Assessment Noted Time PHQ-9 Depression Total Score: 9 07/08/2020 3:59 PM CANDY SUPERVISOR documented as of this encounter Care Teams Crusher Foreman Relationship Specialty Start Date End Date Alberto Locke M.D. PCP - General Family Medicine 04/27/19 [address] [place] [address] documented as of this encounter
--- OUTSIDE RECORDS SUMMARY | 2022-07-24 08:23 | XMS_ITS | Encounter Summary ---
:1985 Author Organization [facility] Address [address] [place] [address] Care Team Providers Name Role Phone Alberto Locke M.D. Primary Care Provider Reason for Visit Reason Onset Date Comments Testing For Upper Respiratory Virus Symptoms 01/16/2022 Encounter Details Date Type Department Care Team Description 01/16/2022 External Outreach Department of [facility] Yamel Collins Contact With And (Suspected) Exposure To COVID-19; Medicine, [place] T, P.A.-C. Infection Upper Respiratory Clinic, in [address] [address] [place], [place] [phone] [address] (Work) [phone] Social History Tobacco Use Types Packs/Day Years [...] How often do you attend hinduism or judaism More than 4 time s [...] coordinate the care. For questions, contact the [place] Covid Care Team ([facility]): Pager: [phone] In basket: P RST/[facility]S COVID-19 POSITIVE Covid Care e-consult NOTE: At the time of testing, patients are instructed to obtain the result by calling the [employer] result line or by checking their online [...] RNA, V Symptomatic (01/16/2022 8:39 AM CDT) [facility] Method Time Signature SARS-CoV-2 Swab, 01/17/2022 ECLR Specimen Nasopharynx 8:57 PM CDT Source SARS CoV-2 Detected (A) Undetected 01/17/2022 ECLR RNA, TMA 8:57 PM CDT Comment: SARS-CoV-2 RNA present. ----ADDITIONAL INFORMATION---- This molecular amplification test was pe rformed using the Aptima SARS-CoV-2 assay ([employer] on the [employer] tem under emergency use authorization (EUA) by the U.S. Food and Drug Administ ben. Fact sheets for this EUA assay can be fo und at the following links: For Healthcare Providers: https://www.fd a.gov/media/783951/download For Patients: https://www.fda.gov/media/ 469189/download Specimen Anatomical Collection Method Collection Time Receive d Time (Source) Location / / Volume Laterality Varies 01/16/2022 8:39 AM 4:18 (Nasopharynx) CDT PM CDT Venu Collins P.A.-C. LAB MICROBIOLOGY - GENERAL O BOBBY Performing Organization Address City/State/ZIP Code Phon e Number [facility]- [address] [place] [phone] [facility] [place] [address] System [address] documented in this encounter Visit Diagnoses Diagnosis Contact With And (Suspected) Exposure To COVID-19 Infection Upper Respiratory documented in this encounter Additional Health Concerns Infection Onset Date Last Indicated Resolved Time COVID19 Pending 01/16/2022 01/16/2022 01/17/2022 8:58 PM CDT Assessment Noted Time PHQ-9 Depression Total Score: 9 07/08/2020 3:59 PM MANAGEMENT RECRUITER documented as of this encounter Care Teams Steel Detailer Relationship Specialty Start Date End Date Alberto Locke M.D. PCP - General Family Medicine 04/27/19 [address] [place] [address] documented as of this encounter
--- OUTSIDE RECORDS SUMMARY | 2022-07-24 08:23 | XMS_ITS | Encounter Summary ---
:1985 Author Organization [facility] Address [address] [place] [address] Care Team Providers Name Role Phone Alberto [...] Type Department Care Team Description 02/21/2022 Emergency [place] [facility] [place], Infection Urinary Department Ray Mustafa M.D. [place] (Primary Dx) [address] [place]EN [place], [place] [phone] [phone] (Wo rk) Social History Tobacco Use Types [...] How often do you attend orthodox or advent More than 4 time s [...] were examined and treated today in the [facility] Emergency Department (ED) on an emergency [...] through Care Everywhere. Urinary Tract Infection Adult (Citizen Of [place])documented in this encounter Medications at Time of [...] 8.0 02/21/2022 3:44 AM CDT RDWG Specific [place] 1.022 1.001 - 1.035 02/21/2022 3:44 AM [...] Phon e Number [facility]- [address] [place] [address] [place] [address] System [address] Basic Metabolic Panel (02/21/2022 2:36 AM [...] CDT eGFR-Black/Afric >90 >=60 02/21/2022 RDWG an Polish mL/min/BSA 3:03 AM CDT Comment: ----ADDITIONAL INFORMATION---- [...] Phon e Number [facility]- [facility] [place] [address] [address] [place] [address] System in [address] CBC with Differential, Blood (02/21/2022 [...] Phon e Number [facility]- [address] [place], [place] [address] [address] [place] [address] System in [place] [address] (ABNORMAL) Blood Gas with Coox, Venous (02/21/2022 2:36 AM CDT) [facility] gist Method Time Signature Venous Sample Venipunct [...] Phon e Number [facility]- [address] [place], [place] [address] [place] [address] System in [place] [address] documented in this encounter Visit Diagnoses Diagnosis Infection Urinary Tract - Primary documented in this encounter Additional Health Concerns Assessment Noted Time PHQ-9 Depression Total Score: 9 07/08/2020 3:59 PM VICE PRESIDENT QUALITY ASSURANCE documented as of this encounter Care Teams Animal Physiology Teacher Relationship Specialty Start Date End Date Alberto Locke M.D. PCP - General Family Medicine 04/27/19 [address] [place] [phone] documented as of this encounter
--- OUTSIDE RECORDS SUMMARY | 2022-07-24 08:23 | XMS_ITS | Encounter Summary ---
:1985 Author Organization [facility] Address [address] [place] [address] Care Team Providers Name Role Phone Alberto Locke M.D. Primary Care Provider Encounter Details Date Type Department Care Team Description 05/02/2022 Emergency [place] [facility] [place], Carlie Bronchitis (Primary Department A, TOP IRONER, C.N.P., Dx) [address] [place], [place] [address], [place] [address] [address] [place], [place] [phone] [address] (Wo rk) Social History Tobacco Use [...] How often do you attend latter-day or hindu More than 4 time s [...] sent through Care Everywhere. 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 PCP - General Family Medicine 04/27/19 [place] [address] documented as of this encounter
--- OUTSIDE RECORDS SUMMARY | 2022-07-24 08:23 | XMS_ITS | Encounter Summary ---
:1985 Author Organization [facility] Address [address] [place] [address] Care Team Providers Name Role Phone Alberto Locke M.D. Primary Care Provider Reason for Visit Reason Comments Sore Throat Shortness of Breath Encounter Details Date Type Department Care Team Description 05/19/2021 Emergency [place] Emergency Berny Garcia, Tonsi llitis Acute Department M.DBrittaney (Primary Dx) [address] [facility] [address] [place] [phone] (Wo rk) Social History Tobacco Use Types [...] How often do you attend adventist or methodist More than 4 time s [...] cannot be sent through Care Everywhere. Tonsillitis (Kiswahili)documented in this encounter Medications at Time of [...] Code Phon e Number [facility]- [address] [place] [address] [address] [place] [address] System in [place] [address] [place] [address] (ABNORMAL) Comprehensive Metabolic Panel (05/19/2021 9:45 PM [...] CDT eGFR-Black/Afri >90 >=60 05/19/2021 RDWG can Guyanese mL/min/BSA 10:20 PM CDT Comment: ----ADDITIONAL INFORMATION---- [...] Phon e Number [facility]- [address] [facility] [address] [place] [address] System in [place] [address] (ABNORMAL) CBC with Differential, Blood (05/19/2021 9:45 PM CDT) [facility] Method Time Signature Hemoglobin 14.0 11.6 [...] e Number [facility]- [address] [place], [place] [address] [address] [place] [place] [address] System in [place] [address] SARS Coronavirus-2 RNA, V (05/19/2021 [...] pe rformed using the Aptima SARS-CoV-2 assay ([employer] on the [employer] tem under emergency use authorization (EUA) by the U.S. Food and Drug Administ ration. Fact sheets for this EUA assay can be fo und at the following links: For Healthcare Providers: https://www.Offerboard a.gov/media/571278/download For Patients: https://www.fda.gov/media/ 338226/download Specimen Anatomical Collection Method Collection Time Receive d Time (Source) Location / / Volume Laterality Varies 05/19/2021 9:44 PM CDT 11:00 AM CDT Berny Garcia M.D. LAB MICROBIOLOGY - GENERAL O RDERABLES Performing Organization Address City/State/ZIP Code Phon e Number [facility]- [address] [place] [address] [phone] [facility] [place] [address] System [address] Streptococcus Group A, Molecular Detection, PCR, [...] Number [facility]- [address] [place], [place] [address] [place] [address] System in [place] [address] documented in this encounter Visit Diagnoses Diagnosis Tonsillitis Acute - Primary documented in this encounter Additional Health Concerns Infection Onset Date Last Indicated Resolved Time COVID19 Pending 05/19/2021 05/19/2021 05/19/2021 10:24 PM CDT COVID19 Pending 05/19/2021 05/19/2021 05/20/2021 3:13 PM CDT Assessment Noted Time PHQ-9 Depression Total Score: 9 07/08/2020 3:59 PM FLIGHT ENGINEER HELICOPTER documented as of this encounter Care Teams Radio Control Crane Operator Relationship Specialty Start Date End Date Alberto Locke M.D. PCP - General Family Medicine 04/27/19 [address] [place] [address] documented as of this encounter
--- OUTSIDE RECORDS SUMMARY | 2022-07-24 08:23 | XMS_ITS | Encounter Summary ---
:1985 Author Organization [facility] Address [address] [place] [address] Care Team Providers Name Role Phone Alberto Locke M.D. Primary Care Provider Encounter Details Date Type Department Care Team Description 05/13/2022 Hospital Department of [place], Surveillance Encounter Laboratory [place] O, Intrauteri ne Device Medicine in [address] [address] [phone] Social History Tobacco Use Types Packs/Day Years [...] How often do you attend caodaism or quaker More than 4 time s [...] Performed At Patho logist Time Signature HCG, [address] (H) <5 IU/L 05/13/2022 RDWG Quantitative, 1:11 PM CDT , P Specimen Anatomical Collection Method Collection Time Receive d Time (Source) Location / / Volume Laterality Blood (Blood, 05/13/2022 12:07 05/13/2022 Venous) PM CDT 12:21 PM CDT Rusty Guevara M.D. LAB BLOOD ADD-ON Performing Organization Address City/State/ZIP Code Phon e Number [facility]- [address] [place] [address] [address] [place] [facility] [place]DW[place] [facility] [place] [address] System in [place] [address] documented in this encounter Visit Diagnoses Diagnosis Surveillance Intrauterine Device documented in this encounter Additional Health Concerns Assessment Noted Time PHQ-9 Depression Total Score: 9 07/08/2020 3:59 PM NURSE UNIT MANAGER documented as of this encounter Care Teams Data Compiler Relationship Specialty Start Date End Date Alberto Locke M.D. PCP - General Family Medicine 04/27/19 [address] [place] [address] documented as of this encounter
--- OUTSIDE RECORDS SUMMARY | 2022-07-24 08:23 | XMS_ITS | Encounter Summary ---
:1985 Author Organization [facility] Address [address] [place] [address] Care Team Providers Name Role Phone Alberto Locke M.D. Primary Care Provider Reason for Visit Reason Comments Leg Swelling COVID Nurse Line Encounter Details Date Type Department Care Team Description 11/04/2021 Nurse Triage Department of [facility] Rylee Calvert, Leg Swe lling; [facility], [facility], in [place], [address] [place] [address] [place] [phone] [place] [address] [phone] Social History Tobacco Use Types Packs/Day Years [...] How often do you attend mandaen or restorationist More than 4 time s [...] to pay for the very basics like [employer] hat hard 07/09/2020 food, housing, medical care, [...] in office. Patient was warm transferred to [facility] at the clinic for further assistance. [...] frequently with soap and water, use hand dowel setting machine operator if soap and water aren't [...] The following references were used: [facility] novel coronavirus (COVID- 19) resources Reason for Disposition ??? [1] Thigh, calf, or ankle swelling AND [2] bilateral AND [3] 1 side is more swollen Protocols used: LEG SWELLING AND [id number] documented in this encounter Plan of Treatment Not on filedocumented as of this encounter Visit Diagnoses Not on filedocumented in this encounter Additional Health Concerns Assessment Noted Time PHQ-9 Depression Total Score: 9 07/08/2020 3:59 PM SULFONATION EQUIPMENT OPERATOR documented as of this encounter Care Teams Outsole Cutter Machine Relationship Specialty Start Date End Date Alberto Locke M.D. PCP - General Family Medicine 04/27/19 [address] [place] [address] documented as of this encounter
--- OUTSIDE RECORDS SUMMARY | 2022-07-24 08:24 | XMS_ITS | Encounter Summary ---
:1985 Author Organization [facility] Address [address] [place] [address] Care Team Providers Name Role Phone Alberto Locke M.D. Primary Care Provider Reason for Visit Outpatient (Routine) - Closed Specialty Diagnoses / Procedures Referred By Contact Refer red To Contact Tammie Snyder APRN, C.NJud, M [facility] M.S.N. [address] [place] [phone] Referral ID Status Reason Start Date Expiration Date Visits Requ ested Visits Authorized [id number] Closed 07/09/2020 07/09/2021 1 1 Encounter Details Date Type Department Care Team Description 07/09/2020 Office Visit Urgent Care in [facility] Tammie Snyder APRN, C.NLebron., M.S.N. [address] [place] [phone] Pharyngitis [place], [place] Bree Burt L.PBrittaneyNBrittaney (Primary Dx) [address] [place] [address] Social History Tobacco Use Types [...] often do you attend roman catholic or gnosticism More than 4 time s [...] 07/09/2020 3:45 PM CST Strep test complete SORS GRINDER documented in this encounter Miscellaneous Notes Result Encounter Note - Suzanne Almodovar P.A.-C. - 07/10/2020 12:53 PM SCISSORS GRINDER Results were negative for strep. SORS GRINDER documented in this encounter Plan of Treatment Not on filedocumented as of this encounter Procedures Procedure Name Priority Date/Time Associated Diagnosis Comme nts GROUP A STREP PCR, STAT 07/09/2020 4:04 PM Pharyngitis Acut e Results for this THROAT SCISSORS GRINDER procedure are i n the results section. documented in this encounter Results Streptococcus Group A, Molecular Detection, PCR, Throat (07/09/2020 4:04 PM SCISSORS GRINDER) P athologist Signature Group A Strep Negative Negative 07/09/2020 [facility] PCR, Throat 4:36 PM SCISSORS GRINDER Specimen Anatomical Collection Method Collection Time Receive d Time (Source) Location / / Volume Laterality Varies (Throat) 07/09/2020 4:04 PM 2019 4:04 SCISSORS GRINDER PM SCISSORS GRINDER Erlin Link P.A.-C. LAB MICROBIOLOGY - GENERAL O RDERABLES Performing Organization Address City/State/ZIP Code Phon e Number [facility]- [address] [place], [place] [address] [place] [address] System in [place] [address] documented in this encounter Visit Diagnoses Diagnosis Pharyngitis Acute - Primary documented in this encounter Additional Health Concerns Assessment Noted Time PHQ-9 Depression Total Score: 9 07/08/2020 3:59 PM SCISSORS GRINDER documented as of this encounter Care Teams Sole Tacker Relationship Specialty Start Date End Date Alberto Locke M.D. PCP - General Family Medicine 04/27/19 [address] [place] [address] documented as of this encounter
--- OUTSIDE RECORDS SUMMARY | 2022-07-24 08:24 | XMS_ITS | Encounter Summary ---
:1985 Author Organization [facility] Address [address] [place] [address] Care Team Providers Name Role Phone Alberto Locke M.D. Primary Care Provider Reason for Visit Reason Comments Follow-up Outpatient (Routine) - Closed Specialty Diagnoses / Procedures Referred By Contact Refer red To Contact Family Medicine Alberto Locke M.D. [facility] [address] [place] [phone] Referral ID Status Reason Start Date Expiration Date Visits Requ ested Visits Authorized [id number] Closed 12/06/2019 12/05/2020 1 1 Encounter Details Date Type Department Care Team Description 03/05/2020 Office Visit Department of Family Alberto Locke M.D. Depression Major Recurrent (HCC) (Primar y Dx); [facility], [address] Hypertension Ess[facility], in [facility] [phone] [place] [address] [place], [place] (Work) [phone] Social History Tobacco Use [...] How often do you attend anabaptist or sikh More than 4 time s [...] Depression Major Recurrent ([facility]) Current Outpatient Medications [...] week Gets together: Once a week Attends sikh service: 1 to 4 times per year [...] SECTION; Surgeon: Xin De Leon M.D.; Location: [facility] OR ??? SECTION 04/12/2019 ??? ENDOSCOPIC RETROGRADE CHOLANGIOPANCREATOGRAPHY (ERCP) N/A 11/08/2017 Procedure: ENDOSCOPIC RETROGRADE CHOLANGIOPANCREATOGRAPHY; Surgeon: Rubio Baker M.D.; Location: [facility] OR ??? ESOPHAGOGASTRODUODENOSCOPY N/A 11/11/2017 Procedure: ESOPHAGOGASTRODUODENOSCOPY; Surgeon: Rubio Baker M.D.; Location: [facility] GI LAB ??? LAPAROSCOPIC APPENDECTOMY N/A 09/08/2017 Procedure: LAPAROSCOPIC APPENDECTOMY; Surgeon: Edd Moeller D.O.; Location: [facility] OR ??? LAPAROSCOPIC CHOLECYSTECTOMY WITH CHOLANGIOGRAM N/A 03/03/2018 Procedure: LAPAROSCOPIC CHOLECYSTECTOMY POSSIBLE CHOLANGIOGRAM; Surgeon: Edd Moeller D.O.; Location: [facility] OR ??? OTHER CONVERTED SHX (SEE [...] documented as of this encounter Care Teams Order Picker Relationship Specialty Start Date End Date Alberto Locke M.D. PCP - General Family Medicine 04/27/19 [address] [place] [address] documented as of this encounter
--- OUTSIDE RECORDS SUMMARY | 2022-07-24 08:24 | XMS_ITS | Encounter Summary ---
:1985 Author Organization [facility] Address [address] [place] [address] Care Team Providers Name Role Phone Alberto Locke M.D. Primary Care Provider Reason for Visit Reason Comments Urinary Tract Infection pt reports painful urination , urgency, and pressure Encounter Details Date Type Department Care Team Description 04/12/2021 Emergency [place] [facility] Berny Garcia Infabi garcia Urinary Tract Department Sera (Primary Dx) [address] [facility] [address] [place] [phone] (Wo rk) Social History Tobacco Use Types [...] How often do you attend orthodoxy or denominational More than 4 time s [...] + Susc, Urine (04/12/2021 8:49 PM CDT) [facility] gist Method Time Signature Urine Culture [...] City/State/ZIP Code Phon e Number [facility]- [address] [place] [phone] [facility] [place] [address] System [address] (ABNORMAL) Microscopic Automated (04/12/2021 8:49 PM [...] Code Phon e Number [facility]- 701 [facility] [place], [place] [address] [facility] [place] [place] [address] System in [place] 701 [facility] (ABNORMAL) Urinalysis with Microscopic if Indicated (04/12/2021 [...] 8.0 04/12/2021 9:03 PM CDT [facility] Specific [place] 1.022 1.001 - 1.035 04/12/2021 9:03 PM [...] e Number [facility]- [address] [place], [place] [address] [place] [place] [address] System in [place] [address] documented in this encounter Visit Diagnoses Diagnosis Infection Urinary Tract - Primary documented in this encounter Additional Health Concerns Assessment Noted Time PHQ-9 Depression Total Score: 9 07/08/2020 3:59 PM WATER CONSERVATIONIST documented as of this encounter Care Teams Fisher Sponge Hooking Relationship Specialty Start Date End Date Alberto Locke M.D. PCP - General Family Medicine 04/27/19 [address] [address] documented as of this encounter
--- OUTSIDE RECORDS SUMMARY | 2022-07-24 08:24 | XMS_ITS | Encounter Summary ---
:1985 Author Organization [facility] Address [address] [place] [address] Care Team Providers Name Role Phone Alberto Locke M.D. Primary Care Provider Encounter Details Date Type Department Care Team Description 03/12/2020 Hospital Encounter Department of [facility] laura Brown Laboratory Medicine Leonora Flaherty Other in [place] M.D. Viral Diseases [place] [address] (COVID-19) [address] [place] [address] [place] [phone] Social History Tobacco Use [...] How often do you attend jewish or hinduism More than 4 time s [...] Antibody, Serum (03/12/2020 5:36 PM CDT) [facility] Method Time Signature SARS-CoV-2 Negative Negative [...] was performed using the [employer] El [employer]ys [id number] Reagent assay from [employer], which has received Emergency Use Authori zation(EUA) by the U.S. Food and Drug Administration . Fact sheets for this Emergency Use Autho rization (EUA) assay can be found at the following link s: For Healthcare Providers: https://www.fda.gov/media/651719/downloa d For Patients: https://www.fda.gov/media/641123/downloa d Specimen Anatomical Collection Method Collection Time Receive d Time (Source) Location / / Volume Laterality Blood (Blood, 03/12/2020 5:36 PM 03/13/20 20 3:23 Venous) CDT PM CDT Covid Serology Testing Employer Based LAB MICROBIOLOGY - BLOOD ORDERABLES Performing Organization Address City/State/ZIP Code Phon e Number [facility]- [address] [place] [phone] [facility] [place] [address] System [address] documented in this encounter Visit Diagnoses Diagnosis Encounter For Screening For Other Viral Diseases (COVID-19) documented in this encounter Additional Health Concerns Assessment Noted Time PHQ-9 Depression Total Score: 11 03/05/2020 4:06 PM CD T documented as of this encounter Care Teams Pin Ball Machine Mechanic Relationship Specialty Start Date End Date Alberto Locke M.D. PCP - General Family Medicine 04/27/19 [address] [phone] documented as of this encounter
--- OUTSIDE RECORDS SUMMARY | 2022-07-24 08:24 | XMS_ITS | Encounter Summary ---
:1985 Author Organization [facility] Address [address] [place] [address] Care Team Providers Name Role Phone Alberto Locke M.D. Primary Care Provider Encounter Details Date Type Department Care Team Description 07/08/2020 Admin Visit Department of Family Medicine, [facility] [place] in [place], [place] [address] [place] [address] [facility] [phone] Social History Tobacco Use Types Packs/Day Years [...] How often do you attend protestant or restorationism More than 4 time s [...] COVID19 Pending 07/08/2020 07/08/2020 07/09/2020 5:11 AM FRUIT OR NUT CROPS FARM MANAGER Assessment Noted Time PHQ-9 Depression Total Score: 9 07/08/2020 3:59 PM FRUIT OR NUT CROPS FARM MANAGER documented as of this encounter Care Teams Racing Secretary And Handicapper Relationship Specialty Start Date End Date Alberto Locke M.D. PCP - General Family Medicine 04/27/19 [address] [place] [phone] documented as of this encounter
--- OUTSIDE RECORDS SUMMARY | 2022-07-24 08:24 | XMS_ITS | Encounter Summary ---
:1985 Author Organization [facility] Address [address] [place] [address] Care Team Providers Name Role Phone Alberto Locke M.D. Primary Care Provider Encounter Details Date Type Department Care Team Description 07/08/2020 Clinical Communication Department of [facility] Alberto Fregoso M.D. [address], [facility] [phone] [facility] [phone] [place], [place] (Work) [phone] Social History Tobacco Use [...] How often do you attend alevism or yazidi More than 4 time s [...] encounter Miscellaneous Notes Telephone Encounter - Cristine Raemsh - 07/08/2020 11:30 AM CST Patient will wait on covid results and call back at later day to schedule appt if sore throat symptoms do not improve. Thank you for the information T PARTNER Telephone Encounter - Venu Collins P.A.-C. - 07/08/2020 11:29 AM AUDIT PARTNER Currently only COVID swabs can be performed at the testing site. This may change in the future. T PARTNER Telephone Encounter - Karey Carballo L.P.N. - 07/08/2020 11:20 AM AUDIT PARTNER I believe just covid test are done at the [facility] site? Will ask Venu T PARTNER Telephone Encounter - Cristine Ramesh - 07/08/2020 [...] Thanks Name of Medication (if relevant): N/A T PARTNER documented in this encounter Plan of Treatment Not on filedocumented as of this encounter Visit Diagnoses Not on filedocumented in this encounter Additional Health Concerns Infection Onset Date Last Indicated Resolved Time COVID19 Pending 07/08/2020 07/08/2020 07/09/2020 5:11 AM AUDIT PARTNER Assessment Noted Time PHQ-9 Depression Total Score: 9 07/08/2020 3:59 PM AUDIT PARTNER documented as of this encounter Care Teams Cdl Program Coordinator Relationship Specialty Start Date End Date Alberto Locke M.D. PCP - General Family Medicine 04/27/19 [address] [place] [address] documented as of this encounter
--- OUTSIDE RECORDS SUMMARY | 2022-07-24 08:24 | XMS_ITS | Encounter Summary ---
:1985 Author Organization [facility] Address [address] [place] [address] Care Team Providers Name Role Phone Alberto Locke M.D. Primary Care Provider Encounter Details Date Type Department Care Team Description 05/01/2021 Clinical Communication Department of [facility] Alberto Fregoso M.D. [facility], [address], [facility] [phone] [place] [address] [place], [place] (Work) [phone] Social History Tobacco Use [...] How often do you attend religion or tenriism More than 4 time s [...] to pay for the very basics like Tá[employer] hat hard 07/09/2020 food, housing, medical care, [...] the phone between 7 am-6 pm, Wednesday-Wednesday. [place]: [phone] [place]: [phone] [place]: [phone] [place]: [phone] [place]: [phone] [place]: [phone] [facility]: [phone] Stephen Noriega, [place], or [facility]: [phone] [place]:[phone] [place]: [phone] Thank you for trusting your health care to [facility]. documented in this encounter Plan of Treatment Not on filedocumented as of this encounter Visit Diagnoses Not on filedocumented in this encounter Additional Health Concerns Assessment Noted Time PHQ-9 Depression Total Score: 9 07/08/2020 3:59 PM UTILIZATION COORDINATOR documented as of this encounter Care Teams Circle Saw Operator Relationship Specialty Start Date End Date Alberto Locke M.D. PCP - General Family Medicine 04/27/19 [address] [place] [phone] documented as of this encounter
--- OUTSIDE RECORDS SUMMARY | 2022-07-24 08:24 | XMS_ITS | Encounter Summary ---
:1985 Author Organization [facility] Address [address] [place] [address] Care Team Providers Name Role Phone Alberto Locke M.D. Primary Care Provider Reason for Visit Reason Comments COVID Nurse Line Encounter Details Date Type Department Care Team Description 12/06/2019 Clinical Communication Division of [facility] Nurse Line [facility] L, R.N. [facility] [address] [place] [phone] [place] [phone] 200 [facility] (Work) [place] [address] Social History Tobacco Use Types Packs/Day Years [...] How often do you attend mormonism or religion More than 4 time s [...] and water aren't available, use a hand voice instructor that contains at least 60% alcohol. Avoid [...] essential items or medical care). Educational Resource: https://www.cdc.gov/coronavirus/2019-ncov/yggdmbo-zatvuft-nrux/index.html Education: patient/caregiver Patient/caregiver able to teach back Patient agreeable to plan of care: Yes The following references were used: [facility] novel coronavirus (COVID- 19) resources documented in this encounter Plan of Treatment Not on filedocumented as of this encounter Visit Diagnoses Not on filedocumented in this encounter Additional Health Concerns Assessment Noted Time PHQ-9 Depression Total Score: 6 12/06/2019 10:58 AM CD T documented as of this encounter Care Teams Plan Coordinator Relationship Specialty Start Date End Date Alberto Locke M.D. PCP - General Family Medicine 04/27/19 [address] [place] [phone] documented as of this encounter
--- OUTSIDE RECORDS SUMMARY | 2022-07-24 08:24 | XMS_ITS | Encounter Summary ---
:1985 Author Organization [facility] Address [address] [place] [address] Care Team Providers Name Role Phone Alberto Locke M.D. Primary Care Provider Encounter Details Date Type Department Care Team Description 12/06/2019 Hospital Encounter Department of [place], Nuno W, Pain L ower Leg Right; [facility] Swelling Leg Right [address] [phone] Social History Tobacco Use Types Packs/Day Years [...] How often do you attend latter-day or bahai More than 4 time s [...] to pay for the very basics like Classroom IQw hat hard 07/09/2020 food, housing, medical care, [...] documented as of this encounter Care Teams Ditch Worker Relationship Specialty Start Date End Date Alberto Locke M.D. PCP - General Family Medicine 04/27/19 [address] [place] [phone] documented as of this encounter
--- OUTSIDE RECORDS SUMMARY | 2022-07-24 08:24 | XMS_ITS | Encounter Summary ---
:1985 Author Organization [facility] Address [address] [place] [address] Care Team Providers Name Role Phone Alberto Locke M.D. Primary Care Provider Encounter Details Date Type Department Care Team Description 04/14/2021 Hospital Encounter Department of Suzanne Almodovar Pain Knee Left Radiology in [place], P.ABrittaney-Marlyn [address] [phone] Social History Tobacco Use Types Packs/Day Years [...] How often do you attend yazdanism or pentecostal More than 4 time s [...] Depression Total Score: 9 07/08/2020 3:59 PM SERVICES CLERK documented as of this encounter Care Teams Pound Keeper Relationship Specialty Start Date End Date Alberto Locke M.D. PCP - General Family Medicine 04/27/[address] [place] [phone] documented as of this encounter
--- OUTSIDE RECORDS SUMMARY | 2022-07-24 08:24 | XMS_ITS | Encounter Summary ---
:1985 Author Organization [facility] Address [address] [place] [address] Care Team Providers Name Role Phone Alberto Locke M.D. Primary Care Provider Reason for Visit Reason Comments Leg Pain lower right leg,red,swollen, ,alittle painful,for few weeks Outpatient (Routine) - Closed Specialty Diagnoses / Procedures Referred By Contact Refer red To Contact Family Medicine Alberto Locke M.D. [address] [phone] Referral ID Status Reason Start Date Expiration Date Visits Requ ested Visits Authorized [id number] Closed 12/06/2019 12/05/2020 1 1 Encounter Details Date Type Department Care Team Description 12/06/2019 Office Visit Department of Alberto Campbell M.D. [address] [place] [phone] Pain Lower Leg Right (Primary Dx); Medicine, [place] Nuno Beck M.D. [address] [place] [phone] Swelling Leg Right; Clinic, in [place], Pain Ne ck; [place] Depression Major Recurrent ( HCC); [address] [place] [address] Body Mass Index 50.0 To 59.9 Adult (HCC); [place] [phone] Social History Tobacco [...] How often do you attend mormon or mormonism More than 4 time s [...] symptoms she should be seen in a zpzy-we-djfgvtuig to rule out DVT. No fever, chills, [...] of these at a local store or [facility] 2. Episodic neck pain with radiation down [...] calm down and physical therapy is seenpeople [id number] and then can request a referral at [...] documented as of this encounter Care Teams Alteration Manager Relationship Specialty Start Date End Date Alberto Locke M.D. PCP - General Family Medicine 04/27/19 [address] [place] [phone] documented as of this encounter
--- OUTSIDE RECORDS SUMMARY | 2022-07-24 08:24 | XMS_ITS | Encounter Summary ---
:1985 Author Organization [facility] Address [address] [place] [address] Care Team Providers Name Role Phone Alberto Locke M.D. Primary Care Provider Reason for Referral Outpatient (Routine) - Closed Specialty Diagnoses / Procedures Referred By Contact Refer red To Contact Family Alberto Hercules M.D. [facility] [address] [phone] Referral ID Status Reason Start Date Expiration Date Visits Requ ested Visits Authorized [id number] Closed 12/06/2019 12/05/2020 1 1 Scheduling Instructions Face to face or virtual depending on COV ID restrictions at that time ehavioral Health (Routine) - Closed Specialty Diagnoses / Procedures Referred By Contact Refer red To Contact Psychiatry / Psychiatry Diagnoses Depression Major Recurrent (HCC) Alberto Locke M.D. [facility] [address] [place] [phone] Referral ID Status Reason Start Date Expiration Date Visits Requ ested Visits Authorized [id number] Closed 12/06/2019 12/05/2020 1 1 utpatient (Routine) - Closed Specialty Diagnoses / Procedures Referred By Contact Refer red To Contact Family Alberto Hercules M.D. [facility] [address] [phone] Referral ID Status Reason Start Date Expiration Date Visits Requ ested Visits Authorized [id number] Closed 12/06/2019 12/05/2020 1 1 Scheduling Instructions Face to face family med but must do COVI D triage clearance first Reason for Visit Reason Comments Follow-up ? lab -hgb Outpatient (Routine) - Closed Specialty Diagnoses / Procedures Referred By Contact Refer red To Contact Family Medicine Alberto Locke M.D. [facility] Region [address] [place] [phone] Referral ID Status Reason Start Date Expiration Date Visits Requ ested Visits Authorized [id number] Closed 05/31/2019 05/30/2020 1 1 Encounter Details Date Type Department Care Team Description 12/06/2019 Virtual Visit Department of Alberto Campbell M.D. Depression Major Recurrent (HCC) (Primar y Dx); Medicine, [address] [facility], in [facility] [phone] [place] [address] [place], [place] (Work) [phone] Social History Tobacco Use [...] Body Mass Index 50.0 To 59.9 Adult ([facility]) ??? Abuse Tobacco Smoking ??? Migraine Headache ??? Apnea Sleep Obstructive ??? Gastroesophageal Reflux Disease NOS ??? Attention Deficit With Hyperactivity Disorder ??? Depression Major Recurrent ([facility]) Current Outpatient Medications Medication Sig [...] I will refer her semi urgently to [facility] social work #2 Edema Ankle Right Due to asymmetrical nature of this LE edema she will need to be seen face to face in [facility] today I will have her talk to COVID triage nurse to clear her before she can schedule for visit with [facility] doc today. She appears to have no [...] documented as of this encounter Care Teams Commercial Collections Driver Relationship Specialty Start Date End Date Alberto Locke M.D. PCP - General Family Medicine 04/27/19 [address] [place] [phone] documented as of this encounter
--- OUTSIDE RECORDS SUMMARY | 2022-07-24 08:24 | XMS_ITS | Encounter Summary ---
:1985 Author Organization [facility] Address [address] [place] [address] Care Team Providers Name Role Phone Alberto [...] How often do you attend anabaptist or taoist More than 4 time s [...] Total Antibody, Serum (03/12/2020 5:36 PM CDT) [facility] Method Time Signature SARS-CoV-2 Negative Negative [...] was performed using the [employer] [id number] Reagent assay from [employer], which has received Emergency Use Authori zation(EUA) by the U.S. Food and Drug Administration . Fact sheets for this Emergency Use Autho rization (EUA) assay can be found at the following link s: For Healthcare Providers: https://www.fda.gov/media/158014/downloa d For Patients: https://www.fda.gov/media/533092/downloa d Specimen Anatomical Collection Method Collection Time Receive d Time (Source) Location / / Volume Laterality Blood (Blood, 03/12/2020 5:36 PM 03/13/20 20 3:23 Venous) CDT PM CDT Covid Serology Testing Employer Based LAB MICROBIOLOGY - BLOOD ORDERABLES Performing Organization Address City/State/ZIP Code Phon e Number [facility]- [address] [place] [phone] [facility] [place] [address] System [address] documented in this encounter Visit Diagnoses Diagnosis Encounter For Screening For Other Viral Diseases (COVID-19) - Primary documented in this encounter Additional Health Concerns Assessment Noted Time PHQ-9 Depression Total Score: 11 03/05/2020 4:06 PM CD T documented as of this encounter Care Teams Behavior Analyst Relationship Specialty Start Date End Date Alberto Locke M.D. PCP - General Family Medicine 04/27/19 [address] [place] [phone] documented as of this encounter
--- OUTSIDE RECORDS SUMMARY | 2022-07-24 08:24 | XMS_ITS | Encounter Summary ---
:1985 Author Organization [facility] Address [address] [place] [address] Care Team Providers Name Role Phone Alberto Locke M.D. Primary Care Provider Reason for Referral Outpatient (Routine) - Closed Specialty Diagnoses / Procedures Referred By Contact Refer red To Contact Obstetrics and Diagnoses PAR Leonora Reaves, JOSEFA, MIGDALIAS [facility] C.N.P. [address] [place] [phone] Referral ID Status Reason Start Date Expiration Date Visits Requ ested Visits Authorized [id number] Closed 07/24/2020 07/24/2021 1 1 Scheduling Instructions IUD insertion RGY PHYSICIAN Reason for Visit Reason Comments Annual Exam Appointment Request (Routine) - Closed Specialty Diagnoses / Procedures Referred By Contact Refer red To Contact Obstetrics and Gynecology Referral ID Status Reason Start Date Expiration Date Visits Requ ested Visits Authorized [id number] Closed 07/24/2020 07/24/2021 1 1 Encounter Details Date Type Department Care Team Description 07/24/2020 Office Visit Department of Leonora Reaves Preventive G ynecological Exam (Primary Dx); Obstetrics and JOSEFA, C.N.P. Pap Smear Examination; Gynecology in [facility] [address] Migraine Headache; [facility] MD Abuse Tobacco Smoking; [address] [facility] [phone] Body Mass Index 60.0 To 69.9 Adult (HCC) ; [facility] MD [phone] Depression Olimpia r Recurrent ([facility]) [address] (Work) [phone] Social History Tobacco Use Types Packs/Day Years [...] How often do you attend anglican or anglican More than 4 time s [...] Comments Blood Pressure 144/76 07/24/2020 1:03 PM ALLERGY PHYSICIAN Pulse - - Temperature - - Respiratory Rate - - Oxygen Saturation - - Inhaled Oxygen Concentration - - Weight 151 kg (332 lb 14.3 oz) 07/24/2020 1:03 PM ALLERGY PHYSICIAN Height - - Body Mass Index 61.26 [...] 3. 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 [...] SECTION; Surgeon: Xin De Leon M.D.; Location: [facility] OR ??? SECTION 04/12/2019 ??? ENDOSCOPIC RETROGRADE CHOLANGIOPANCREATOGRAPHY (ERCP) N/A 11/08/2017 Procedure: ENDOSCOPIC RETROGRADE CHOLANGIOPANCREATOGRAPHY; Surgeon: Rubio Baker M.D.; Location: [facility] OR ??? ESOPHAGOGASTRODUODENOSCOPY N/A 11/11/2017 Procedure: ESOPHAGOGASTRODUODENOSCOPY; Surgeon: Rubio Baker M.D.; Location: [facility] GI LAB ??? LAPAROSCOPIC APPENDECTOMY N/A 09/08/2017 Procedure: LAPAROSCOPIC APPENDECTOMY; Surgeon: Edd Moeller D.O.; Location: [facility] OR ??? LAPAROSCOPIC CHOLECYSTECTOMY WITH CHOLANGIOGRAM N/A 03/03/2018 Procedure: LAPAROSCOPIC CHOLECYSTECTOMY POSSIBLE CHOLANGIOGRAM; Surgeon: Edd Moeller D.O.; Location: [facility] OR ??? OTHER CONVERTED SHX [...] week Gets together: Once a week Attends anglican service: More than 4 times per year [...] with logging foods in roque such as [employer] or something comparable, making small changes as [...] blood/lymph issues: Yes No urinary/reproductive issues: Yes RGY PHYSICIAN documented in this encounter Plan of Treatment Scheduled Referrals Name Type Priority Associated Order Schedule Diagnoses Obstetrics and Outpatient Referral Routine Expect ed: Gynecology office 07/24/2020 visit (clinic) (Approximate) , Expires: 07/24/2023 documented as of this encounter Procedures Procedure Name Priority Date/Time Associated Diagnosis Comme nts THINPREP W/HPV Routine 07/24/2020 1:43 PM Pap Smear Results for this CO-TEST SCREEN ALLERGY PHYSICIAN Examination procedure are in the results section. HPV WITH Routine 07/24/2020 1:43 PM Results f or this GENOTYPING, PCR, ALLERGY PHYSICIAN procedure a re in THINPREP the results section. documented in this encounter Results HPV with Genotyping, PCR, ThinPrep (07/24/2020 1:43 PM ALLERGY PHYSICIAN) [facility] gist Method Time Signature Specimen Thin Prep 07/29/2020 DTL Source Vial, 4:25 PM ALLERGY PHYSICIAN Cervix/Endoc ervix HPV High Risk Negative Negative 07/29/2020 DTL type 16, PCR 4:25 PM ALLERGY PHYSICIAN HPV High Risk Negative Negative 07/29/2020 DTL type 18, PCR 4:25 PM ALLERGY PHYSICIAN HPV other Negative Negative 07/29/2020 DTL High Risk 4:25 PM ALLERGY PHYSICIAN types, PCR Comment: The following Other High Risk HPV types were not detected: 31, 33, 35, 39, 45, 51, 52, 56, 58, 59, 66, and 68 This test was ordered in the context of a [facility] MEDICAL DELIVERY TECHNICIAN Cytology case; this result should be int erpreted within the context of the MEDICAL DELIVERY TECHNICIAN cytology report. Specimen Anatomical Collection Method Collection Time Receive d Time (Source) Location / / Volume Laterality Varies 07/24/2020 1:43 PM 0 ALLERGY PHYSICIAN 10:27 AM ALLERGY PHYSICIAN Leonora Reaves APRN, C.N.P. LAB MICROBIOLOGY - GENERAL O RDERABLES Performing Organization Address City/State/ZIP Code Phon e Number [facility] - [address] [place], [place] [address] [address] [place] [address] [facility] [address] [facility] ThinPrep w/HPV Co-Test Screen (07/24/2020 1:43 PM ALLERGY PHYSICIAN) Component Value Ref Test Analysis Performed Pathologis t Range Method Time At Signature 07/30/2020 ECLR 2:28 PM ALLERGY PHYSICIAN Disclaimer High risk HPV testing, Real-Time Polymerase Chain Reac tion 07/30/2020 ECLR (PCR) was performed on the liquid-based cytology specimen 2:28 PM at [place], [place]. Report LISSETT Foley(ASCP) 07/30/2020 ECL R electronically I verify that I have examined all relevant slides/ma terials 2:28 PM signed by for the specimen(s) and rendered or confirmed the diagnosis. ALLERGY PHYSICIAN Gross Description Received specimen 07/30/2020 ECL R in a ThinPrep 2:28 PM vial. ALLERGY PHYSICIAN Pap Test Source Cervical/Endocervi 07/30/2020 ECLR huma 2:28 PM ALLERGY PHYSICIAN Interpretation Cervical/Endocervical ??(ThinPrep): 07/30/2020 ECLR Satisfactory for Evaluation 2:28 PM Endocervical/transformation zone components absent ALLERGY PHYSICIAN Negative for Intraepithelial Lesion or Malignancy ??High [...] Laterality Varies 07/24/2020 1:43 PM 0 (Cervix/Endocerv ALLERGY PHYSICIAN 10:27 AM CS T ix) Narrative This result has an attachment that is no t available. Leonora Reaves APRN, C.N.P. LAB PAP PATHDX ORDERABLES Performing Organization Address City/State/ZIP Code Phon e Number [facility]- [address] [place] [address] [address] [facility] [place] [address] System [address] documented in this encounter Visit Diagnoses Diagnosis Preventive Gynecological Exam - Primary Pap Smear Examination Migraine Headache Abuse Tobacco Smoking Body Mass Index 60.0 To 69.9 Adult (HCC) Depression Major Recurrent (HCC) documented in this encounter Additional Health Concerns Assessment Noted Time PHQ-9 Depression Total Score: 9 07/08/2020 3:59 PM ALLERGY PHYSICIAN documented as of this encounter Care Teams Travel Registered Nurse Oncology Relationship Specialty Start Date End Date Alberto Locke M.D. PCP - General Family Medicine 04/27/19 [address] [place] [phone] documented as of this encounter
--- OUTSIDE RECORDS SUMMARY | 2022-07-24 08:24 | XMS_ITS | Encounter Summary ---
:1985 Author Organization [facility] Address [address] [place] [address] Care Team Providers Name Role Phone Alberto Locke M.D. Primary Care Provider Reason for Referral Outpatient (Routine) - Closed Specialty Diagnoses / Procedures Referred By Contact Refer red To Contact Diagnoses Insertion Intrauterine Device Leonora Reaves APRN, [facility] Region Procedures IUD - Insertion or Reinsertion w/removal C.N.P. [address] [place] [phone] Referral ID Status Reason Start Date Expiration Date Visits Requ ested Visits Authorized [id number] Closed 08/07/2020 08/07/2021 1 1 FRAME TENDER Reason for Visit Reason Comments Contraception Outpatient (Routine) - Closed Specialty Diagnoses / Procedures Referred By Contact Refer red To Contact Obstetrics and Diagnoses PAR Leonora Reaves APRN, [facility]ne[facility] C.N.P. [address] [place] [address] Referral ID Status Reason Start Date Expiration Date Visits Requ ested Visits Authorized [id number] Closed 07/24/2020 07/24/2021 1 1 Encounter Details Date Type Department Care Team Description 08/07/2020 Office Visit Department of Leonora Reaves, Insertion In trauterine Obstetrics and JOSEFA C.N.P. Device (Primary Dx) Gynecology in [place] [address] [facility] [place] [address] [facility] [address] [place]HE[place]IAH GRANT [phone] [address] (Work) [phone] Social History Tobacco Use Types Packs/Day Years [...] How often do you attend latter-day or buddhism More than 4 time s [...] Comments Blood Pressure 138/82 08/07/2020 10:53 AM DRAW FRAME TENDER Pulse - - Temperature - - Respiratory Rate - - Oxygen Saturation - - Inhaled Oxygen Concentration - - Weight 150 kg (330 lb 11 oz) 08/07/2020 10:53 AM DRAW FRAME TENDER Height - - Body Mass Index 60.85 [...] appropriate location of the IUD is verified. DIVING COACH FRAME TENDER documented in this encounter Plan of Treatment Not on filedocumented as of this encounter Procedures Procedure Name Priority Date/Time Associated Diagnosis Comme nts FL INSERT OF Routine 08/07/2020 11:00 Insertion Results for this INTRAUTERINE DEVICE AM DRAW FRAME TENDER Intrauterine Device p rocedure are in the results section. documented in this encounter Results FL INSERT OF INTRAUTERINE DEVICE (08/07/2020 11:00 AM DRAW FRAME TENDER) Narrative MMODAL - 08/07/2020 11:00 AM DRAW FRAME TENDER Leonora Reaves WHNP-BC RBrittaneyN. ? 08/07/2020 11:34 [...] second attempt at IUD in [facility] in approximately 2 weeks time. Today, [...] mcg/24 hours (6 Given 08/07/2020 11:30 AM DRAW FRAME TENDER 1 each yrs) 52 mg IUD 1 each (MIRENA) 1 each, intrauterine, One-Time Injection, Starting on Wed08/07/20 at 1130, For 1 dose documented in this encounter Additional Health Concerns Assessment Noted Time PHQ-9 Depression Total Score: 9 07/08/2020 3:59 PM DRAW FRAME TENDER documented as of this encounter Care Teams Automotive Service Professional Relationship Specialty Start Date End Date Alberto Locke M.D. PCP - General Family Medicine 04/27/19 [address] [place] [phone] documented as of this encounter
--- OUTSIDE RECORDS SUMMARY | 2022-07-24 08:24 | XMS_ITS | Encounter Summary ---
:1985 Author Organization [facility] Address [address] [place] [address] Care Team Providers Name Role Phone Alberto Locke M.D. Primary Care Provider Reason for Visit Reason Onset Date Comments Outpatient COVID-19 Testing 03/05/2020 Encounter Details Date Type Department Care Team Description 03/05/2020 External Outreach Department of Employer Based, [facility] For Family Medicine, Covid Serology Screening For Other [facility], in Testing Viral Di [place], [place] (COVID-19) (Primary [address] Dx) [place] [address] Social History Tobacco Use Types [...] How often do you attend samaritan or orthodoxy More than 4 time s [...] to pay for the very basics like [employer] hat hard 07/09/2020 food, housing, medical [...] Scrn, Blood Spot (03/05/2020 9:10 AM CDT) [facility] Method Time Signature SARS-CoV-2 Reactive (A) Negative 03/06/2020 [facility] IgG Emp Scrn, 3:24 PM CDT [...] Testing was performed using the [employer] N Pvkx-CXLL-PcY-2 DONALD (IgG). ??This test has received Emergency Use Authorization (EUA) by the U.S. Food and Drug Administration and is used per wood scaler's instructions, but it is modified from the wood scaler's instructions wit h a bridging study to include dried blood spot specimens. ? ? Performance characteristics were verifie d by [facility] in a manner consistent with CLIA [...] [facility] [address] [place], [place] [address] [place] [address] [place] [address] Laboratory Medicine and Pathology [address] [place] documented in this encounter Visit Diagnoses Diagnosis Encounter For Screening For Other Viral Diseases (COVID-19) - Primary documented in this encounter Additional Health Concerns Assessment Noted Time PHQ-9 Depression Total Score: 11 03/05/2020 4:06 PM CD T documented as of this encounter Care Teams Midlevel Provider Relationship Specialty Start Date End Date Albetro Locke M.D. PCP - General Family Medicine 04/27/19 [address] [place] [phone] documented as of this encounter
--- OUTSIDE RECORDS SUMMARY | 2022-07-24 08:24 | XMS_ITS | Encounter Summary ---
:1985 Author Organization [facility] Address [address] [place] [address] Care Team Providers Name Role Phone Alberto Locke M.D. Primary Care Provider Encounter Details Date Type Department Care Team Description 11/29/2020 Immunization Department of [facility] Ian Hays, Medicine, [place] M.DBrittaney Professional Building, in [address] [place], [place] [address] [facility] [address] [address] [place] [address] [phone] Social History Tobacco Use Types Packs/Day Years [...] How often do you attend lutheran or gnosticist More than 4 time s [...] Total Score: 9 07/08/2020 3:59 PM CERTIFIED ALCOHOL COUNSELOR documented as of this encounter Care Teams Optoelectronic Technician Relationship Specialty Start Date End Date Alberto Locke M.D. PCP - General Family Medicine 04/27/19 [address] [place] [address] documented as of this encounter
--- OUTSIDE RECORDS SUMMARY | 2022-07-24 08:24 | XMS_ITS | Encounter Summary ---
:1985 Author Organization [facility] Address [address] [place] [address] Care Team Providers Name Role Phone Alberto Locke M.D. Primary Care Provider Encounter Details Date Type Department Care Team Description 11/22/2020 Orders Only [facility] SEMN PCP TH Sa emma Lemos M.D. [address] [place], [place] [phone] (Wo rk) Social History Tobacco Use Types [...] Depression Total Score: 9 07/08/2020 3:59 PM PORCELAIN TECHNICIAN documented as of this encounter Care Teams Spa Receptionist Relationship Specialty Start Date End Date Alberto Locke M.D. PCP - General Family Medicine 04/27/19 [address] [place] [phone] documented as of this encounter
--- OUTSIDE RECORDS SUMMARY | 2022-07-24 08:24 | XMS_ITS | Encounter Summary ---
:1985 Author Organization [facility] Address [address] [place] [address] Care Team Providers Name Role Phone Alberto Locke M.D. Primary Care Provider Reason for Referral Outpatient (Routine) - Closed Specialty Diagnoses / Procedures Referred By Contact Refer red To Contact Tammie Snyder APRN, C.NJud, M [facility] NEHEMIAH Kent M.S.N. [address] [place] [phone] Referral ID Status Reason Start Date Expiration Date Visits Requ ested Visits Authorized [id number] Closed 07/09/2020 07/09/2021 [address] [facility] ([facility]) ONLY. Please schedule as soon as possible within the next 24-48 hours. NG TUNNEL OPERATOR Reason for Visit Appointment Request (Routine) - Closed Specialty Diagnoses / Procedures Referred By Contact Refer red To Contact Express or Urgent Care Referral ID Status Reason Start Date Expiration Date Visits Requ ested Visits Authorized [id number] Closed 07/09/2020 07/09/2021 1 1 Encounter Details Date Type Department Care Team Description 07/09/2020 Telemedicine [facility] Tammie Can Phar yngitis Acute Care at [facility] JOSEFA C.N.PBrittaney, (Primary Dx) [address] [place] M.S.NBrittaney [place], [place] [address] [place] [address] [place], [place] [phone] [address] Social History Tobacco Use Types Packs/Day Years [...] How often do you attend sabianism or mormonism More than 4 time s [...] or coughing. ?? Use an alcohol-based hand wire drawer if washing your hands with soap and [...] with your health care provider. ? 2013 [facility] [employer] ([facility]). All rights reserved. [id number] NG TUNNEL OPERATOR documented in this encounter Progress Notes Tammie Snyder APRN, C.N.P., M.S.N. - 07/09/2020 11:20 AM CST CHIEF COMPLAINT Sore throat x 1 week Consult conducted via real-time audio/video technology by Tammie Snyder APRN C.N.PBrittaney in [facility] patient in their home. Visit [...] exposure however the patient does work in [employer] in [place]. She wears appropriate personal protective equipment while [...] strep swab to be completed at the [facility] via nurse only visit. Treat per protocol. If strep screen positive, a prescription for Penicillin V Potassium 500 mg PO, every 12 hours for 10days, tablet, will be sent to [facility] in [place]. Strep pharyngitis considered contagious until treated for [...] with primary care provider. Patient has a [facility] online portal account, can view medication list electronically. Ready to learn, no apparent learning barriers were identified; learning preferences include listening. Explained diagnosis and treatment plan; patient/child/caregiver expressed understanding of the content. NG TUNNEL OPERATOR documented in this encounter Plan of Treatment Scheduled Referrals Name Type Priority Associated Diagnoses [facility] nurse Outpatient Referral Routine Ex pected: visit (clinic) - 07/09/2020, [facility] Region; Expires: Swabs; Throat 07/09/2023 documented as of this encounter Visit Diagnoses Diagnosis Pharyngitis Acute - Primary documented in this encounter Additional Health Concerns Assessment Noted Time PHQ-9 Depression Total Score: 9 07/08/2020 3:59 PM DRYING TUNNEL OPERATOR documented as of this encounter Care Teams Associate Vice President Relationship Specialty Start Date End Date Alberto Locke M.D. PCP - General Family Medicine 04/27/19 [address] [place] [address] documented as of this encounter
--- OUTSIDE RECORDS SUMMARY | 2022-07-24 08:24 | XMS_ITS | Encounter Summary ---
:1985 Author Organization [facility] Address [address] [place] [address] Care Team Providers Name Role Phone Alberto Locke M.D. Primary Care Provider Encounter Details Date Type Department Care Team Description 05/12/2021 Clinical Communication Department of [facility] Alberto Fregoso M.D. [facility], [address], [facility] [address] [place] [address] [place], [place] (Work) [phone] Social History Tobacco Use [...] How often do you attend religion or hinduism More than 4 time s [...] to pay for the very basics like Soapboxw hat hard 07/09/2020 food, housing, medical care, [...] COVID19 Pending 07/15/2021 07/15/2021 07/15/2021 8:38 PM PRINTER APPRENTICE Assessment Noted Time PHQ-9 Depression Total Score: 9 07/08/2020 3:59 PM PRINTER APPRENTICE documented as of this encounter Care Teams Plaster And Stucco Worker Relationship Specialty Start Date End Date Alberto Locke M.D. PCP - General Family Medicine 04/27/19 [address] [phone] documented as of this encounter
--- OUTSIDE RECORDS SUMMARY | 2022-07-24 08:24 | XMS_ITS | Encounter Summary ---
:1985 Author Organization [facility] Address [address] [place] [address] Care Team Providers Name Role Phone Alberto Locke M.D. Primary Care Provider Reason for Visit Reason Comments Med Refill Encounter Details Date Type Department Care Team Description 05/05/2021 Refill Urgent Care in [place] M, Med Refill [place] [facility] 701 [facility] [address] [place] [address] [place] [address] [phone] (Wo rk) Social History Tobacco Use Types [...] How often do you attend hinduism or catholic More than 4 time s [...] Total Score: 9 07/08/2020 3:59 PM WATER POLLUTION SPECIALIST documented as of this encounter Care Teams Bean Snipper Relationship Specialty Start Date End Date Alberto Locke M.D. PCP - General Family Medicine 04/27/19 [address] [place] [phone] documented as of this encounter
--- OUTSIDE RECORDS SUMMARY | 2022-07-24 08:24 | XMS_ITS | Encounter Summary ---
:1985 Author Organization [facility] Address [address] [place] [address] Care Team Providers Name Role Phone Alberto Locke M.D. Primary Care Provider Reason for Referral Outpatient (Routine) - Closed Specialty Diagnoses / Procedures Referred By Contact Refer red To Contact Diagnoses Primary Osteoarthritis Knee Left Pain Knee Left Berny Robert [facility] [place] [facility] Procedures hgc-ufdq-beiffgaa-elbow arthrocentesis: L knee joint M.D. [address] [place] [address] Referral ID Status Reason Start Date Expiration Date Visits Requ ested Visits Authorized [id number] Closed 04/23/2021 04/23/2022 1 1 Physical Therapy (Routine) - Closed Specialty Diagnoses / Procedures Referred By Contact Refer red To Contact Diagnoses Pain Knee Left Primary Osteoarthritis Knee Left Primary Osteoarthritis Knee Right Body Mass Index 60.0 To 69.9 Adult ([facility]) Berny Robert [facility] [place] [facility] Procedures PT Evaluate and treat M.D. [address] [place] [address] Referral ID Status Reason Start Date Expiration Date Visits Requ ested Visits Authorized [id number] Closed 04/23/2021 04/23/2022 1 1 Reason for Visit Outpatient (Routine) - Closed Specialty Diagnoses / Procedures Referred By Contact Refer red To Contact Orthopedic Surgery Diagnoses Pain Knee Left Suzanne Almodovar [facility] [place] [address] Referral ID Status Reason Start Date Expiration Date Visits Requ ested Visits Authorized [id number] Closed 04/14/2021 04/14/2022 1 1 Encounter Details Date Type Department Care Team Description 04/23/2021 Comprehensive Visit Department of Jakob, Primary Osteoarthritis Knee Left (Primary Dx); Orthopedic Surgery Malia Son Pain Knee Left; [address] [place] [facility] Primary Osteoarthritis Knee Right; [place], [place] Body Mass Index 60.0 To 69.9 Adult ([facility]) [address] [facility] [address] [phone] [address] (Work) [phone] Social History Tobacco Use Types Packs/Day Years [...] M.D. - 04/23/2021 10:15 AM CDTAssociated Order(s): drp-ztgh-rrzwtrae-elbow arthrocentesis: L knee joint Post-Procedure Diagnose(s): Primary Osteoarthritis Knee Left; Pain Knee Left Knee site- L knee joint : injection only Date/Time: 04/23/2021 10:41 AM Performed by: Berny Robert M.D. Authorized by: Beryn Robert M.D. PROCEDURE DETAILS Procedure Location knee [...] Xin De Leon M.D.; Location: [facility] OR ??? SECTION 04/12/2019 ??? ENDOSCOPIC RETROGRADE CHOLANGIOPANCREATOGRAPHY (ERCP) N/A 11/08/2017 Procedure: ENDOSCOPIC RETROGRADE CHOLANGIOPANCREATOGRAPHY; Surgeon: Rubio Baker M.D.; Location: [facility] OR ??? ESOPHAGOGASTRODUODENOSCOPY N/A 11/11/2017 Procedure: ESOPHAGOGASTRODUODENOSCOPY; Surgeon: Rubio Baker M.D.; Location: [facility] GI LAB ??? LAPAROSCOPIC APPENDECTOMY N/A 09/08/2017 Procedure: LAPAROSCOPIC APPENDECTOMY; Surgeon: Edd Moeller D.O.; Location: [facility] OR ??? LAPAROSCOPIC CHOLECYSTECTOMY WITH CHOLANGIOGRAM N/A 03/03/2018 Procedure: LAPAROSCOPIC CHOLECYSTECTOMY POSSIBLE CHOLANGIOGRAM; Surgeon: Edd Moeller D.O.; Location: [facility] OR ??? OTHER CONVERTED SHX (SEE [...] Body Mass Index 60.0 To 69.9 Adult ([facility]) Discussed diagnosis and natural history of osteoarthritis. Both surgical and conservative treatment options were discussed today, and recommendation was made for conservative treatment consisting of activity modifications, weight loss, pain management with NSAIDs and/or Tylenol, and intermittent intra-articular corticosteroid or viscosupplementation injections. After discussion, patient was in agreement with plan.She is going to take bdmn-vpv-vuzopdp pain medications on an as-needed basis for [...] Depression Total Score: 9 07/08/2020 3:59 PM INFORMATION SECURITY ASSOCIATE documented as of this encounter Care Teams Manager Talent Management Relationship Specialty Start Date End Date Alberto Locke M.D. PCP - General Family Medicine 04/27/19 [address] [place] [phone] documented as of this encounter
--- OUTSIDE RECORDS SUMMARY | 2022-07-24 08:24 | XMS_ITS | Encounter Summary ---
:1985 Author Organization [facility] Address [address] [place] [address] Care Team Providers Name Role Phone Alberto Locke M.D. Primary Care Provider Reason for Referral Outpatient (Routine) - Closed Specialty Diagnoses / Procedures Referred By Contact Refer janell To Contact Orthopedic Surgery Diagnoses Pain Knee Left Suzanne Almodovar [facility] P.A.-C. [address] [place] [address] Referral ID Status Reason Start Date Expiration Date Visits Requ ested Visits Authorized [id number] Closed 04/14/2021 04/14/2022 1 1 Scheduling Instructions Ortho internal referral panel order, bobbi ging before Consult visit Reason for Visit Reason Comments Leg Pain Left Appointment Request (Routine) - Closed Specialty Diagnoses / Procedures Referred By Contact Refer janell To Contact Family Medicine Referral ID Status Reason Start Date Expiration Date Visits Requ ested Visits Authorized [id number] Closed 04/14/2021 04/14/2022 1 1 Encounter Details Date Type Department Care Team Description 04/14/2021 Office Visit Urgent Care in [facility] Suzanne Almodovar Pain Knee Left [place], [place] Nena, P.A.-C. (Primary Dx) 701 [facility] [address] [place] [phone] Social History Tobacco Use Types Packs/Day [...] How often do you attend presybeterian or latter-day More than 4 time s [...] biking or low impact water aerobics. ?? Nbfn-vpw-rlzwygx and prescription medications. Your health care provider may recommend tjdo-lav-uvpzmjh medications and prescribe medications to help with [...] with your health care provider. ? 2014 [employer] ([employer]). All rights reserved. [id number] documented in this encounter Progress Notes Suzanne [...] Depression Total Score: 9 07/08/2020 3:59 PM BREWERY WORKER documented as of this encounter Care Teams Gang Plank Workman Relationship Specialty Start Date End Date Alberto Locke M.D. PCP - General Family Medicine 04/27/19 [place] [place] [phone] documented as of this encounter
--- OUTSIDE RECORDS SUMMARY | 2022-07-24 08:24 | XMS_ITS | Encounter Summary ---
:1985 Author Organization [facility] Address [address] [place] [address] Care Team Providers Name Role Phone Alberto Locke M.D. Primary Care Provider Reason for Visit Reason Onset Date Comments Outpatient COVID-19 Testing 07/08/2020 Encounter Details Date Type Department Care Team Description 07/08/2020 External Outreach Department of Yamel Sandoval Infection Upper Medicine, [place] Marcio SanchezAR[facility] (Primary Clinic, in [place], [address] Dx) [place], [place] [address] [address] [place], [place] [phone] [address] (Work) [phone] Social History Tobacco Use Types Packs/Day Years [...] How often do you attend hinduism or cheondoism More than 4 time s [...] Encounter created for the drive-through COVID-19 testing. PLATER documented in this encounter Plan of Treatment Not on filedocumented as of this encounter Procedures Procedure Name Priority Date/Time Associated Diagnosis Comme nts SARS CORONAVIRUS-2 Routine 07/08/2020 1:34 PM Infection Upper Results for this RNA, V LOCK PLATER Respiratory procedure are i n the results section. documented in this encounter Results SARS Coronavirus-2 RNA, V Symptomatic (07/08/2020 1:34 PM LOCK PLATER) [facility] Method Time Signature SARS-CoV-2 Swab, 07/09/2020 ECLR Specimen Nasopharynx 5:11 AM LOCK PLATER Source SARS CoV-2 Undetected Undetected 07/09/2020 ECL[facility] RNA, TMA 5:11 AM LOCK PLATER Comment: SARS-CoV-2 RNA absent. This result does not rule out COVID-19 in the patient, as the sensitivity of the test depends o n the timing of the specimen collection and the quality of the specim en. Result should be correlated with patient's history and clinical presentat ion. ----ADDITIONAL INFORMATION---- This test is performed using the Aptima SARS-CoV-2 assay ([employer] which has received Emergency Use Authori zation (EUA) by the U.S. Food and Drug Administration. Fact sheets for this Emergency Use Autho rization (EUA) assay can be found at the following links: For Healthcare Providers: https://www.fd a.gov/media/371562/download For Patients: https://www.fda.gov/media/ 198672/download Specimen Anatomical Collection Method Collection Time Receive d Time (Source) Location / / Volume Laterality Varies 07/08/2020 1:34 PM 0 9:39 (Nasopharynx) LOCK PLATER PM LOCK PLATER Venu Collins P.A.-C. LAB MICROBIOLOGY - GENERAL O RDERABLES Performing Organization Address City/State/ZIP Code Phon e Number [facility] [address] [place] [address] 54 7[address] [facility] [place] [address] [address] documented in this encounter Visit Diagnoses Diagnosis Infection Upper Respiratory - Primary documented in this encounter Additional Health Concerns Infection Onset Date Last Indicated Resolved Time COVID19 Pending 07/08/2020 07/08/2020 07/09/2020 5:11 AM LOCK PLATER Assessment Noted Time PHQ-9 Depression Total Score: 9 07/08/2020 3:59 PM LOCK PLATER documented as of this encounter Care Teams Cigar Head Holer Relationship Specialty Start Date End Date Alberto Locke M.D. PCP - General Family Medicine 04/27/19 [address] [phone] documented as of this encounter
--- OUTSIDE RECORDS SUMMARY | 2022-07-24 08:24 | XMS_ITS | Encounter Summary ---
:1985 Author Organization [facility] Address [address] [place] [address] Care Team Providers Name Role Phone Alberto Locke M.D. Primary Care Provider Encounter Details Date Type Department Care Team Description 03/12/2020 Orders Only RST PCP HLTH MNT Albreto Locke M. D. [address] [place], [place] [phone] (Wo rk) Social History [...] How often do you attend presybeterian or caodaism More than 4 time s [...] documented as of this encounter Care Teams Green Belt Relationship Specialty Start Date End Date Alberto Locke M.D. PCP - General Family Medicine 04/27/19 [address] [place] [address] documented as of this encounter
--- OUTSIDE RECORDS SUMMARY | 2022-07-24 08:25 | XMS_ITS | Encounter Summary ---
:[address] [facility] Address [address] [place] [address] Care Team Providers Name Role Phone Alberto Locke M.D. Primary Care Provider Encounter Details Date Type Department Care Team Description 10/17/2019 Orders Only Department of Pediatrics in [facility] cynthia [place], [place] P.A.-C. 701 [facility] 701 [place] [address] [place] [phone] (Wo rk) Social History Tobacco Use Types [...] documented as of this encounter Care Teams Physician'S Assistant Relationship Specialty Start Date End Date Alberto Locke M.D. PCP - General Family Medicine 04/27/19 [address] [place] [address] documented as of this encounter
--- OUTSIDE RECORDS SUMMARY | 2022-07-24 08:25 | XMS_ITS | Encounter Summary ---
:1985 Author Organization [facility] Address [address] [place] [address] Care Team Providers Name Role Phone Alberto Locke M.D. Primary Care Provider Reason for Referral Outpatient (Routine) - Closed Specialty Diagnoses / Procedures Referred By Contact Refer red To Contact Family Medicine Alberto Locke M.D. [address] [address] Referral ID Status Reason Start Date Expiration Date Visits Requ ested Visits Authorized [id number] Closed 04/27/2019 04/26/2020 1 1 Scheduling Instructions Depression, anemia Reason for Visit Reason Comments Establish Care Anemia post Encounter Details Date Type Department Care Team Description 04/27/2019 Comprehensive Visit Department of Alberto Locke Anemia (HCC) (Primary Dx); Family MedicineSera Other Hypotension; [facility], in [address] [place] [address] lvd Abuse Tobacco Smoking; [place], [place] Body Mass Index 50.0 To 59.9 Adult ([facility]); [address] [place] [address] Depression Major Recurrent ([facility]) [place], [place] [phone] [address] (Work) [phone] Social History Tobacco Use Types Packs/Day Years [...] How often do you attend gnosticism or methodist More than 4 time s [...] She will discus permanent sterilization at upcoming GRAB DRIVER follow up. Patient Active Problem List Diagnosis ??? Body Mass Index 50.0 To 59.9 Adult ([facility]) ??? Abuse Tobacco Smoking ??? Migraine Headache ??? Apnea Sleep Obstructive ??? Gastroesophageal Reflux Disease NOS ??? Attention Deficit With Hyperactivity Disorder ??? Depression Major Recurrent ([facility]) ??? Section Delivery ([facility]) Current Outpatient Medications Medication Sig ??? acetaminophen [...] week Gets together: Once a week Attends methodist service: 1 to 4 times per year [...] SECTION; Surgeon: Xin De Leon M.D.; Location: [facility] OR ??? ENDOSCOPIC RETROGRADE CHOLANGIOPANCREATOGRAPHY (ERCP) N/A 11/08/2017 Procedure: ENDOSCOPIC RETROGRADE CHOLANGIOPANCREATOGRAPHY; Surgeon: Rubio Baker M.D.; Location: [facility] OR ??? ESOPHAGOGASTRODUODENOSCOPY N/A 11/11/2017 Procedure: ESOPHAGOGASTRODUODENOSCOPY; Surgeon: Rubio Baker M.D.; Location: [facility] GI LAB ??? LAPAROSCOPIC APPENDECTOMY N/A 09/08/2017 Procedure: LAPAROSCOPIC APPENDECTOMY; Surgeon: Edd Moeller D.O.; Location: [facility] OR ??? LAPAROSCOPIC CHOLECYSTECTOMY WITH CHOLANGIOGRAM N/A 03/03/2018 Procedure: LAPAROSCOPIC CHOLECYSTECTOMY POSSIBLE CHOLANGIOGRAM; Surgeon: Edd Moeller D.O.; Location: [facility] OR ??? OTHER CONVERTED SHX (SEE [...] She will discuss weight loss meds with HUMAN RESOURCES ANALYST #5 Depression Major Recurrent (HCC) I will [...] Name Type Priority Associated Diagnoses Order S [facility] Outpatient Referral Routine Expec pipe: office visit [...] Number [facility]- [address] [place] [address] [address] [place] [address] System in [place] [address] documented in this encounter Visit Diagnoses Diagnosis Anemia (HCC) - Prim shonna Other Hypotension Abuse Tobacco Smoking Body Mass Index 50.0 To 59.9 Adult (HCC) Depression Major Recurrent (HCC) documented in this encounter Additional Health Concerns Assessment Noted Time PHQ-9 Depression Total Score: 7 04/07/2017 9:39 AM CDT documented as of this encounter Care Teams Technical Publications Writer Relationship Specialty Start Date End Date Alberto Locke M.D. PCP - General Family Medicine 04/27/19 [address] [place] [address] documented as of this encounter
--- OUTSIDE RECORDS SUMMARY | 2022-07-24 08:25 | XMS_ITS | Encounter Summary ---
:1985 Author Organization [facility] Address [address] [place] [address] Care Team Providers Name Role Phone Alberto Locke M.D. Primary Care Provider Reason for Visit Reason Comments Care 6 week check Outpatient (Routine) - Closed Specialty Diagnoses / Procedures Referred By Contact Refer red To Contact Obstetrics and Diagnoses Section Delivery (HCC) Harleen Josue D.O. [facility] [address] [place] [phone] Referral ID Status Reason Start Date Expiration Date Visits Requ ested Visits Authorized [id number] Closed 04/15/2019 04/14/2020 1 1 Encounter Details Date Type Department Care Team Description 05/30/2019 Office Visit Department of Leonora Reaves, Care Postpar fercho ([facility]) (Primary Dx); Obstetrics and PALLET STONE INSERTER, C.N.P. Section Delivery ([facility]); Gynecology in [address] [place] [address] [address] [place], [place] [phone] [address] (Work) [phone] Social History Tobacco Use Types Packs/Day Years [...] How often do you attend moravian or spiritism More than 4 time s [...] in this encounter Progress Notes Leonora Reaves, PALLET STONE INSERTER, C.N.P. - 05/30/2019 11:00 AM CDT SUBJECTIVE [...] SECTION; Surgeon: Xin De Leon M.D.; Location: [facility] OR ??? ENDOSCOPIC RETROGRADE CHOLANGIOPANCREATOGRAPHY (ERCP) N/A 11/08/2017 Procedure: ENDOSCOPIC RETROGRADE CHOLANGIOPANCREATOGRAPHY; Surgeon: Rubio Baker M.D.; Location: [facility] OR ??? ESOPHAGOGASTRODUODENOSCOPY N/A 11/11/2017 Procedure: ESOPHAGOGASTRODUODENOSCOPY; Surgeon: Rubio Baker M.D.; Location: [facility] GI LAB ??? LAPAROSCOPIC APPENDECTOMY N/A 09/08/2017 Procedure: LAPAROSCOPIC APPENDECTOMY; Surgeon: Edd Moeller D.O.; Location: [facility] OR ??? LAPAROSCOPIC CHOLECYSTECTOMY WITH CHOLANGIOGRAM N/A 03/03/2018 Procedure: LAPAROSCOPIC CHOLECYSTECTOMY POSSIBLE CHOLANGIOGRAM; Surgeon: Edd Moeller D.O.; Location: [facility] OR ??? OTHER CONVERTED [...] abstinent at this time. Consult placed to [facility] STRIPE MATCHER #2 Section Delivery (HCC) Mackenzie type rash [...] documented as of this encounter Care Teams Health And Social Care Teacher Relationship Specialty Start Date End Date Alberto Locke M.D. PCP - General Family Medicine 04/27/19 [address] [place] [address] documented as of this encounter
--- OUTSIDE RECORDS SUMMARY | 2022-07-24 08:25 | XMS_ITS | Encounter Summary ---
:1985 Author Organization [facility] Address [address] [place] [address] Care Team Providers Name Role Phone Alberto Locke M.D. Primary Care Provider Encounter Details Date Type Department Care Team Description 07/03/2019 Orders Only Department of Family Alberto Locke M.D. Medicine, [facility], [address] [facility] [place] [address] [address] [facility] [place] [address] [phone] Social History Tobacco Use Types Packs/Day Years [...] How often do you attend caodaism or orthodoxy More than 4 time s [...] to pay for the very basics like [employer] hat hard 07/09/2020 food, housing, medical care, [...] documented as of this encounter Care Teams Route Aide Relationship Specialty Start Date End Date Alberto Locke M.D. PCP - General Family Medicine 04/27/19 [address] [place] [address] documented as of this encounter
--- OUTSIDE RECORDS SUMMARY | 2022-07-24 08:25 | XMS_ITS | Encounter Summary ---
:1985 Author Organization [facility] Address [address] [place] [address] Care Team Providers Name Role Phone Blaire Bundy P.A.-C. Primary Care Provider Reason for Visit Reason Comments Post-op Visit Outpatient (Routine) - Closed Specialty Diagnoses / Procedures Referred By Contact Refer red To Contact Obstetrics and Diagnoses PAR Melany Montoya [facility] SET OFF BLOCKER, CHRISTOPH, M.S.N., B.S.N., R.N. [address] [place] [address] Referral ID Status Reason Start Date Expiration Date Visits Requ ested Visits Authorized [id number] Closed 04/19/2019 04/18/2020 1 1 Encounter Details Date Type Department Care Team Description 04/20/2019 Office Visit Department of Melany Montoya, S ection Obstetrics and JOSEFA, CHRISTOPH, Delivery ([facility] ) Gynecology in [facility] M.S.N., B.S.N., (Primar y Dx) [place], [place] R.N. 701 [facility] [address] [place] [address] Social History Tobacco Use [...] How often do you attend orthodoxy or islam More than 4 time s [...] documented as of this encounter Care Teams Nascar Pit Crew Person Relationship Specialty Start Date End Date Blaire Bundy P.A.-C. PCP - General 02/04/17 04/26/19 documented as of this encounter
--- OUTSIDE RECORDS SUMMARY | 2022-07-24 08:25 | XMS_ITS | Encounter Summary ---
:1985 Author Organization [facility] Address [address] [place] [address] Care Team Providers Name Role Phone Alberto Locke M.D. Primary Care Provider Encounter Details Date Type Department Care Team Description 04/25/2019 Orders Only Department of Family Alberto Locke M.D. Medicine, [facility], [address] [facility] [place] [address] [place] [address] [place] [address] [phone] Social History Tobacco Use Types Packs/Day Years [...] How often do you attend judaism or gnosticism More than 4 time s [...] as of this encounter Care Teams Animal Herder Relationship Specialty Start Date End Date Alberto Locke M.D. PCP - General Family Medicine 04/27/19 [address] [place] [address] documented as of this encounter
--- OUTSIDE RECORDS SUMMARY | 2022-07-24 08:25 | XMS_ITS | Encounter Summary ---
:1985 Author Organization [facility] Address [address] [place] [address] Care Team Providers Name Role Phone Blaire [...] often do you attend jehovah's witness or sabianism More than 4 time s [...] seen for a Consultation on 04/17/19 at [facility] class for weight and feeding check. [...] as of this encounter Care Teams Egg Factory Worker Relationship Specialty Start Date End Date Blaire Bundy P.A.-C. PCP - General 02/04/17 04/26/19 documented as of this encounter
--- OUTSIDE RECORDS SUMMARY | 2022-07-24 08:25 | XMS_ITS | Encounter Summary ---
:1985 Author Organization [facility] Address [address] [place] [address] Care Team Providers Name Role Phone Alberto Locke M.D. Primary Care Provider Reason for Referral Outpatient (Routine) - Closed Specialty Diagnoses / Procedures Referred By Contact Refer red To Contact Family [facility] Hercules [facility].D. [facility] [address] [phone] Referral ID Status Reason Start Date Expiration Date Visits Requ ested Visits Authorized [id number] Closed 05/31/2019 05/30/2020 1 1 Scheduling Instructions Dep Reason for Visit Reason Comments Care Recheck anemia Outpatient (Routine) - Closed Specialty Diagnoses / Procedures Referred By Contact Refer red To Contact Family Alberto Hercules M.D. [address] [phone] Referral ID Status Reason Start Date Expiration Date Visits Requ ested Visits Authorized [id number] Closed 04/27/2019 04/26/2020 1 1 Encounter Details Date Type Department Care Team Description 05/31/2019 Office Visit Department of Alberto Campbell M.D. Anemia (HCC) (Prima ry Dx); [address] Depression Major Recurrent (HCC) Clinic, in [facility] [id number] [address] [facility] [phone] [place], [place] (Work) [phone] Social History Tobacco Use [...] How often do you attend rastafarian or lutheran More than 4 time s [...] Index 50.0 To 59.9 Adult ([facility]) ??? Abuse Tobacco Smoking ??? Migraine Headache ??? Apnea Sleep Obstructive ??? Gastroesophageal Reflux Disease NOS ??? Attention Deficit With Hyperactivity Disorder ??? Depression Major Recurrent ([facility]) ??? Section Delivery ([facility]) ??? Anemia ([facility]) Current Outpatient Medications Medication Sig ??? buPROPion [...] together: Once a week Attends lutheran service: 1 to 4 times per year [...] [facility] OR ??? ENDOSCOPIC RETROGRADE CHOLANGIOPANCREATOGRAPHY [...] visit (clinic) Nov 30, 2019 (Approximate) Region: [facility] Provider needed?: Self Visit length: Long Visit type: General Dep documented in this encounter Plan of Treatment Scheduled Referrals Name Type Priority Associated Diagnoses Order [facility] Family Medicine Outpatient Referral Routine Expec pipe: office visit 11/30/2019 (clinic) (Approximate), Expires: 05/31/2022 documented as of this encounter Visit Diagnoses Diagnosis Anemia (HCC) - Prim shonna Depression Major Recurrent (HCC) documented in this encounter Additional Health Concerns Assessment Noted Time PHQ-9 Depression Total Score: 3 05/30/2019 10:59 AM CD T documented as of this encounter Care Teams School Manager Relationship Specialty Start Date End Date Alberto Locke M.D. PCP - General Family Medicine 04/27/19 [address] [place] [phone] documented as of this encounter
--- OUTSIDE RECORDS SUMMARY | 2022-07-24 08:25 | XMS_ITS | Encounter Summary ---
:1985 Author Organization [facility] Address [address] [place] [address] Care Team Providers Name Role Phone Alberto Locke M.D. Primary Care Provider Encounter Details Date Type Department Care Team Description 06/16/2019 Clinical Communication Department of Alberto Roberts M.D. [address], [facility] [phone] [place] [address] [place], [place] (Work) [phone] Social History Tobacco Use [...] How often do you attend lutheran or quaker More than 4 time s [...] Jayshree HAWKINS. Please return her call at [phone]. documented in this encounter Plan of Treatment Not on filedocumented as of this encounter Visit Diagnoses Not on filedocumented in this encounter Additional Health Concerns Assessment Noted Time PHQ-9 Depression Total Score: 3 05/30/2019 10:59 AM CD T documented as of this encounter Care Teams Memorial Counselor Relationship Specialty Start Date End Date Alberto Locke M.D. PCP - General Family Medicine 04/27/19 [address] [phone] documented as of this encounter
--- OUTSIDE RECORDS SUMMARY | 2022-07-24 08:25 | XMS_ITS | Encounter Summary ---
:1985 Author Organization [facility] Address [address] [place] [address] Care Team Providers Name Role Phone Blaire Bundy P.A.-C. Primary Care Provider [phone] Reason for Referral Outpatient (Routine) - Closed Specialty Diagnoses / Procedures Referred By Contact Refer red To Contact Obstetrics and Diagnoses Section Delivery ([facility]) Harleen Josue D.O. [facility] Gynecology [address] [place] [address] Referral ID Status Reason Start Date Expiration Date Visits Requ ested Visits Authorized [id number] Closed 04/15/2019 04/14/2020 1 1 Reason for Visit Reason Comments Abdominal Pain pt brought in by ambulance w ith abd pain/contractions. pt states she has nexplanon in her arm and had no idea she was Auth/Cert Specialty Diagnoses / Procedures Referred By Contact Refer red To Contact Diagnoses Precipitate Labor ([facility]) Procedures x Referral ID Status Reason Start Date Expiration Date Visits Requ ested Visits Authorized [id number] 1 1 Encounter Details Date Type Department Care Team Description 04/12/2019 - Hospital Encounter [facility] Xin Vaughn Precipi briceño Labor ([facility]) (Primary Dx); [facility] Medical [place], [address] [facility] [address] [place], [place] [address] [facility] [address] [place], [place] [phone] (Work) [phone] Social History Tobacco Use Types Packs/Day Years [...] How often do you attend yarsanism or yazdanism More than 4 time s [...] at Discharge: Primary Care Providers: Blaire Bundy P.AaRvi (General) No address on file Primary Care [...] Case IDs Date Procedure Surgeon Location Status [id number] 04/12/19 SECTION Xin Vaughn M.D. [facility] OR [place] Review the Delivery Report for details. GA: Unknown GP: Risk Factors: Obesity No Care Asthma Obstetric Procedures this : None Labor Complications: Persistent Category 2;Precipitous Labor <3 Hours Delivery Details: 04/12/2019 10:10 AM with Apgars of 8 and 9 . Delivery Type: , Low Transverse Lacerations: Nabeel Clayton [[phone]] [place] Weight: 3.93 kg Feeding Method: both breast [...] due to habitus. She was placed on monitoring specialist. She was tachycardic in the 110s-130s. It [...] 04/19/2019 10:00 AM Melany Montoya APRNCHRISTOPH [facility] SEMN CELPRWZ 05/30/2019 11:00 AM Leonora Reaves APRN, C.N.P. 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 information provided. Completed a 's Non-Paternity Statement. with Brendonevelin Clayton.) Who was present during the interview?: Patient, Other (comment), Family(Supportive cousin, Chloe shaw mother were present during this workers interview. ) Director Digital Catalogue Services Used: No Patient Information Primary Caregiver: Self Legal Information Legal Decision Maker: Self OBJECTIVE Functional Status (ADLs) Functional Status: Independent Behavior: Oriented Communication: Can write, Talks, Understands speaking, Understands Ethiopian Environmental Supports Home Environment: Apartment(Puneet and her 11 year old son-Edy and her alomst 2 year old son-Shahzad,along with daughter-Keri Juarez reside in an apartment in [place], [place] . Plan todischarge to her mothers home in [place] upon discharge.) Anticipated Needs/Assistive Devices ADL Anticipated Needs: None Equipment Anticipated Needs: None Transportation Needs: Support from family(Has a car seat and her family will pick her up whenever medically stable. 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 Puneet's mother, Nichole helps with not using day care. Good family support forher and her children. Does not get child support. Plans to [facility] Shahazd & [facility].) Income Source: Employed, Food stamps(Puneet [...] Juarez. Puneet resides in an apartment in [place], [place] along with her two sons, Edy, age 11 years (will be in middle school this year) and son-Shahzad who will be two in June,.Puneet does not receive any child support for Edy or Shahzad. Puneet is legally to their father, Brendon Claytonof [place], [place]. This worker called, by request of Puneet, to Brendon and requested that he schedule a visit to complete the necessary paperwork for the 's Non- Paternity Statement.(scheduled at 11:00am April 14 with the OB-PERSONAL CARE AIDE.) Brendon can be reached at [phone]. He lives in [place]. Puneet reports, and Brendon confirmed that they have been for one and a half years. Puneet's mother, Nichole Young is very support, along with a close cousin, Chloe who both reside within blocks of each other in [place]. Puneet also has two younger sisters, Leonora is a half sister and lives in [place], Xin is a step sister. All are reportedly supportive in her life. Puneet's dad is also a support and was watching Shahzad when she went into labor at the [email or web address] in [place]. Puneet's dad lives in [place], [place] and is supportive of her and the new baby. In discussing options, Puneet very clearly wants to parent this baby girl. Puneet also stated that she already loves Keri very much, as does the rest of the family, including her oldest brother, Edy. Puneet had recently applied for food stamps in [facility] and was denied because she was $10 over the income level. Puneet will apply again, now with an additional child on the case. Provided Puneet with WIC(Women, Infants & Children) Program, including documents that are needed for [facility], [phone]. Puneet will call and set up an [...] had no contact with Puneet since conception. Punete, at this time is not planning on informing him about this child. He reportedly has two other children in [place] that he does not financially support or [...] Patient discharge needs identified 04/14/2019 1850 by Cornelai Ritchie RBrittaneyNBrittaney Outcome: Progressing 04/14/20191847 by Cornelia [...] of bed quite a lot today. Shiela Benral R.N. - 04/12/2019 3:04 PM CDT Pts [...] She was transferred in [facility] having contractions last approximately 1 [...] being transferred to the Labor and delivery [facility] and accepted by .. Final Diagnoses: [...] <3 Hours Delivery Type: , Low Transverse [place] Weight: 3930 g 1 Minute 5 Minute [...] check. Olivia Stark R.N. Hospital Course - [place] HarleenTyshawn antoine - 04/15/2019 8:20 AM CDT [...] due to habitus. She was placed on monitoring specialist. She was tachycardic in the 110s-130s. It [...] use as needed. . . Infant Assessment [place] in color, transcutaneous bilirubin at 44 hours [...] Puneet Clayton 33 y.o. Yasir, Girl Puneet [[phone]] Delivery Providers Delivering clinician: Xin Vaughn M.D. Provider Role Delivery Nurse Nursery Nurse Wall To Wall Carpet Installer Review the Delivery Report for details. GA: [...] CBC without Differential (04/14/2019 11:00 AM CDT) [facility] Method Time Signature Hemoglobin 8.6 (L) [...] D.O. LAB BLOOD ADD-ON Performing Organization Address City/[facility]/ZIP Code Phon e Number [facility] [place] [address] [facility] (ABNORMAL) CBC without Differential (04/14/2019 6:35 AM CDT) [facility] [employer] Method Time Signature Hemoglobin 8.2 (L) 11.6 [...] Code Phon e Number [facility] [place] [address] [facility] (ABNORMAL) CBC with Differential, Blood (04/13/2019 9:43 PM CDT) [facility] [employer] Method Time Signature Hemoglobin 8.9 (L) 11.6 [...] Phon e Number [facility] [address] [address] LAB Rubella Antibodies, IgG (04/13/2019 5:05 PM [...] - BLOOD ORD ERABLES Performing Organization Address [facility] Phon e Number [address] [place] [address] [facility] LAB Syphilis IgG Antibody with [...] D.O. LAB BLOOD ADD-ON Performing Organization Address [facility] Phon e Number [address] [place] [address] [facility] LAB (ABNORMAL) CMP (Comprehensive Metabolic [...] >=60 04/13/2019 Black/ mL/min/BSA 5:55 PM CDT Kuwaiti Comment: ----ADDITIONAL INFORMATION---- Estimated GFR calculated using [...] Phon e Number [facility] [address] [address] LAB (ABNORMAL) CBC with Differential, Blood (04/13/2019 5:05 PM CDT) [facility] Method Time Signature Hemoglobin 9.1 (L) [...] Phon e Number [facility] [address] [address] LAB Transfuse Red Blood Cells (04/13/2019 12:21 [...] >=60 04/13/2019 Black/ mL/min/BSA 7:14 AM CDT [place]i Comment: ----ADDITIONAL INFORMATION---- Estimated GFR calculated using [...] Code Phon e Number [facility] [place] [address] [facility] (ABNORMAL) CBC without Differential (04/13/2019 6:35 AM CDT) [facility] Method Time Signature Hemoglobin 7.9 (L) [...] Code Phon e Number [facility] JeffreyCamilo [place] [place] [address] [facility] Phosphorus Inorganic (04/12/2019 11:36 PM [...] [facility]/ZIP Code Phon e Number [facility] [address] [place] [address], [place] [address] [facility] Magnesium (04/12/2019 11:36 PM CDT) P athologist Signature Magnesium, S 2.3 1.7 - 2.3 04/13/2019 mg/dL 12:30 AM CDT Specimen Anatomical Collection Method Collection Time Receive d Time (Source) Location / / Volume Laterality Blood (Blood, 04/12/2019 11:36 04/12/2019 Venous) PM CDT 11:40 PM CDT Xin Vaughn M.D. LAB BLOOD ADD-ON Performing Organization Address City/State/ZIP Code Phon e Number [address] [place] [address] [facility] (ABNORMAL) CMP (Comprehensive Metabolic Panel) [...] >=60 04/13/2019 Black/ mL/min/BSA 12:30 AM CDT Kuwaiti Comment: ----ADDITIONAL INFORMATION---- Estimated GFR calculated using [...] Phon e Number [facility] [address] [address] LAB (ABNORMAL) CBC without Differential (04/12/2019 11:36 PM CDT) [facility] Method Time Signature Hemoglobin 9.3 (L) [...] Phon e Number [facility] [address] [place] [address] [facility] US Lower Extremity Veins Bilateral [...] CBC without Differential (04/12/2019 8:03 PM CDT) [facility] Method Time Signature Hemoglobin 9.6 (L) 11.6 [...] Phon e Number [facility] [address] [place] [address] [facility] (ABNORMAL) Protein/Creatinine Ratio, Random, Urine (04/12/2019 3:57 PM CDT) [facility] Method Time Signature Protein, Total, 85 mg/dL [...] Phon e Number [facility] [address] [facility] [place] [address] [place] [facility] (ABNORMAL) Drug Screen Urine (04/12/2019 3:57 PM CDT) athologist Signature Amphetamines, Negative Negative 04/12/2019 U 4:20 PM CDT Comment: ----ADDITIONAL INFORMATION---- [employer]'s Cutoff: 500 ng/mL Barbiturates, U Negative Negative 04/12/2019 4:20 PM CDT Comment: ----ADDITIONAL INFORMATION---- [employer]'s Cutoff: 200 ng/mL Benzodiazepines, U Negative Negative 04/12/2019 4:20 PM CD T Comment: ----ADDITIONAL INFORMATION---- [employer]'s Cutoff: 150 ng/mL Buprenorphine, U Negative Negative 04/12/2019 4:20 PM CDT Comment: ----ADDITIONAL INFORMATION---- [employer]'s Cutoff: 10 ng/mL Cocaine, U Negative Negative 04/12/2019 4:20 PM CDT Comment: ----ADDITIONAL INFORMATION---- [employer]'s Cutoff: 150 ng/mL Methadone, U Negative Negative 04/12/2019 4:20 PM CDT Comment: ----ADDITIONAL INFORMATION---- [employer]'s Cutoff: 200 ng/mL Methamphetamines, U Negative Negative 04/12/2019 4:20 PM C DT Comment: ----ADDITIONAL INFORMATION---- [employer]'s Cutoff: 500 ng/mL Opiates, U Unconfirmed Positive (A) Negative 04/12/2019 4:2 0 PM CDT Comment: ----ADDITIONAL INFORMATION---- [employer]'s Cutoff: 100 ng/mL Oxycodone, U Negative Negative 04/12/2019 4:20 PM CDT Comment: ----ADDITIONAL INFORMATION---- [employer]'s Cutoff: 100 ng/mL Phencyclidine, U Negative Negative 04/12/2019 4:20 PM CDT Comment: ----ADDITIONAL INFORMATION---- [employer]'s Cutoff: 25 ng/mL Propoxyphene, U Negative Negative 04/12/2019 4:20 PM CDT Comment: ----ADDITIONAL INFORMATION---- [employer]'s Cutoff: 300 ng/mL Tetrahydrocannabinol, U Negative Negative 04/12/2019 4:20 PM CDT Comment: ----ADDITIONAL INFORMATION---- [employer]'s Cutoff: 50 ng/mL Tricyclic Antidepressants, U Negative Negative 04/12/2019 4:20 PM CDT Comment: ----ADDITIONAL INFORMATION---- [employer]'s Cutoff: 300 ng/mL THE ABOVE DRUG SCREEN PANEL IS FOR MED ICAL PURPOSES ONLY Specimen Anatomical Collection Method Collection Time Receive d Time (Source) Location / / Volume Laterality Urine (Urine, 04/12/2019 3:57 PM 04/12/20 19 3:57 Catheter) CDT PM CDT Xin Vaughn M.D. LAB URINE ORDERABLES Performing Organization Address City/State/ZIP Code Phon e Number [facility] [address] [place] [address] [place] [facility] (ABNORMAL) CBC without Differential (04/12/2019 3:48 PM CDT) [facility] Method Time Signature Hemoglobin 11.0 (L) [...] Phon e Number [facility] [address] [place] [address] [facility] HIV-1 p24 Ag, HIV-1/2 Ab [...] Phon e Number [facility] [address] [facility] [place] [address] [facility] LAB (TTE) 2D ECHO DOPPLER COLOR (04/12/2019 3:38 PM CDT) [facility] Method Time Signature Ejection Fraction 64 [...] effusion. 7. No previous studies available for [email or web address]. Procedure Note Derke Booth M.D. - 04/12/2019Form atting of this [...] effusion. 7. No previous studies available for [email or web address]. Findings Bedside echo performed. Transthoracic ou treach [...] (>50%). Normal abdominal aorta Doppler flow martha mairsa. No atrial level shunt by color flow [...] person on 04/12/2019 at approximately 1:55 PM [facility] Dr. Hernandez and Jose. Xin CH [...] Phon e Number [facility] [address] [place] [address] [facility] (ABNORMAL) CMP (Comprehensive Metabolic Panel) [...] PM CDT eGFR-Black/Afri >90 >=60 04/12/2019 can Kuwaiti mL/min/BSA 1:49 PM CDT Comment: ----ADDITIONAL INFORMATION---- [...] Phon e Number [facility] [address] [facility] [place] [address] [place] [facility] (ABNORMAL) CBC with Differential, Blood (04/12/2019 1:19 PM CDT) [facility] gist Method Time Signature Hemoglobin 10.2 [...] Organization Address City/State/ZIP Code Phon e Number [address] [place] [address] [facility] Fibrinogen (04/12/2019 1:18 PM CDT) athologist Signature Fibrinogen, P [phone] 04/12/2019 mg/dL 4:18 PM CDT Specimen Anatomical Collection Method Collection Time Receive d Time (Source) Location / / Volume Laterality Blood (Blood, 04/12/2019 1:18 PM 04/12/20 19 4:11 Venous) CDT PM CDT Xin Vaughn M.D. LAB BLOOD ADD-ON Performing Organization Address City/State/ZIP Code Phon e Number [address] [place] [address] [facility] PT (Prothrombin Time) with INR [...] Phon e Number [facility] [place] [address] [facility] [facility] DX Abdomen Portable Anterior Posterior [...] . Xin Vaughn M.D. IMG DIAGNOSTIC IMAGING [facility] Pathology Services (04/12/2019 10:20 AM CDT) Component Value Ref Test Analysis Performed At [facility] Method Time Signature PATHOLOGY Patient Name: PUNEET CLAYTON [facility] MR#: [id number] [facility] Submitting Physician: XIN VAUGHN MD [id number] Specimen #[id number] Performing Lab: ??[facility] ? [address] [place], [place] [id number] Source: Placenta Gross Description Received is a [...] taken of the and maternal surfaces and sales representative sales manager sections are subm itted as follows: Umbilical [...] City/State/ZIP Code Phon e Number [facility] [place] [address] [address] Testing Location (04/12/2019 9:42 AM CDT) P athologist Signature Testing [facility] DEFAULT 04/12/2019 Location 9:47 AM CDT Specimen Anatomical Collection Method Collection Time Receive d Time (Source) Location / / Volume Laterality Blood 04/12/2019 9:42 AM 9 9:47 CDT AM CDT Xin Vaughn M.D. LAB BLOOD BANK TEST ORDERABL ES Performing Organization Address City/[facility]/ZIP Code Phon e Number [facility] [address] [address] LAB Type and Screen (with reflex Antibody ID) (04/12/2019 9:42 AM CDT) [facility] Method Time Signature ABO Group A [...] BANK TEST ORDERABL ES Performing Organization Address City/[facility]/ZIP Code Phon e Number [facility] [address] [place] [address] [place] [facility] Hepatitis B Surface Antigen (04/12/2019 9:41 AM CDT) [facility] Method Time Signature HBs Antigen, Nonreactive Nonreactive 04/12/2019 S 2:59 PM CDT Comment: Biotin has been identified by the doug saucedo as a potential interfering substance. ??Higher concentr ations of biotin may be found in multivitamins, hair/nail supple ments, and workout supplements. ??If the result does not [facility] clinical observations, repeat testing after patient [...] Phon e Number [facility] [address] [place] [address] [place] [address] [facility] LAB HBc Total Ab, Serum (04/12/2019 9:41 AM CDT) athologist Signature HBc Total Ab, Negative Negative 04/12/2019 w/Reflex, S 2:59 PM CDT Comment: Biotin has been identified by the doug saucedo as a potential interfering substance. ??Higher concentr ations of biotin may be found in multivitamins, hair/nail supple ments, and workout supplements. ??If the result does not [facility] clinical observations, repeat testing after patient refrains fr om the use of supplements for at least 12 hours. Specimen (Source) Anatomical Collection Method Collection Time Re ceived Time Location / / Volume Laterality Blood (Blood, 04/12/2019 9:41 04/12/2019 2:19 Peripheral Draw) AM CDT PM CDT Xin Vaughn M.D. LAB MICROBIOLOGY - BLOOD ORD Plug[employer][email or web address] Performing Organization Address [facility] Phon e Number [address] [place] [address] [facility] LAB HBs Antibody, Serum (04/12/2019 9:41 AM CDT) athologist Signature HBs Antibody, Positive 04/12/2019 S 2:59 PM CDT Comment: Biotin has been identified by the doug saucedo as a potential interfering substance. ??Higher concentr ations of biotin may be found in multivitamins, hair/nail supple ments, and workout supplements. ??If the result does not [facility] clinical observations, repeat testing after patient [...] - BLOOD ORD ERARISA Performing Organization Address [facility] Phon e Number [address] [place] [address] [facility] LAB documented in this encounter [...] Bernal R.N.)1501 (Given - Provider: Shiela Bernal R.N.)2040 (Given - Provider: Marsha Enamorado R.N.) 0206 (Given - Provider: Marsha Enamorado R.N.)0851 (Given - Provider: Cornelia Ritchie R.N.)7774 (Given - Provider: Cornelia Ritchie R.N.)2158 (Given [...] mg of calcium, oral, Every 2 hour OK N, indigestion, Starting Wed04/12/19 at 1356, Post-, [...] (TUCKS) 1 application, topical, 3 times daily OK N, irritation, or pain., Starting Wed04/12/19 at [...] documented as of this encounter Care Teams Cleaner Industrial Relationship Specialty Start Date End Date Blaire Bundy P.A.-C. PCP - General 02/04/17 04/26/19 documented as of this encounter
--- OUTSIDE RECORDS SUMMARY | 2022-07-24 08:25 | XMS_ITS | Encounter Summary ---
:1985 Author Organization [facility] Address [address] [place] [address] Care Team Providers Name Role Phone Blaire Bundy P.A.-C. Primary Care Provider Encounter Details Date Type Department Care Team Description 04/13/2019 Clinical Communication Department of [facility] Obstetrics and Adelita Reddy Gynecology in [address] [address] [place] [id number] Social History Tobacco Use Types Packs/Day Years [...] How often do you attend judaism or adventism More than 4 time s [...] documented as of this encounter Care Teams Operations Liaison Relationship Specialty Start Date End Date Blaire Bundy P.A.-C. PCP - General 02/04/17 04/26/19 documented as of this encounter
--- OUTSIDE RECORDS SUMMARY | 2022-07-24 08:25 | XMS_ITS | Encounter Summary ---
:1985 Author Organization [facility] Address [address] [place] [address] Care Team Providers Name Role Phone Blaire Bundy P.A.-C. Primary Care Provider [phone] Reason for Visit Auth/Cert Specialty Diagnoses / Procedures Referred By Contact Refer red To Contact Diagnoses Precipitate Labor (HCC) Procedures x Referral ID Status Reason Start Date Expiration Date Visits Requ ested Visits Authorized [id number] 1 1 Encounter Details Date Type Department Care Team Description 04/12/2019 Anesthesia Event [facility] MAIN OR Alfonso Schmitz M.D., J.D. [address] [place] [phone] 701 Alfonso Tang, CHIEF DATA OFFICER, TRIGONOMETRY TEACHER [address] [facility] [address] [place] [address] Anesthesia Record Procedure Summary Procedure [...] h andoff to the receiving staff during [facility] ch we 1. Identified the patient [...] 1418 by Abdomen; and Antionette Marcos, R.N. Chki-Hzwhyn-Jfve groun dermabond; DRSG SEWING MACHINE MAINTENANCE MECHANIC d, Schedulin g WND ADH NEONAT 2X3.75 Automated Batch Job (x3); 05/13/21 (Removed by background completion utility); 1418 (Removed by background completion utility) (RETIRED) Incision 03/03/18; 0953; 03/03/18 0953 by 05/13/21 141 8 by Abdomen; dermabond; Darius Castro RBrittaneyN. [facility] katalina-Backgroun SPNG DRSG SEWING MACHINE MAINTENANCE MECHANIC GZ STRL d, Schedul ing 8PLY 2X2; [...] Fetzer, Megan J RRoverto Time: 1007 (created TRIGONOMETRY TEACHER via procedure documentation); Mask Ventilation: Not attempted; Type: Standard ETT; Single Lumen Tube Size: 7 mm; Cuffed: Yes; Location: Oral; Removal Date: 05/19/21 (Not present upon arrival to ED) (RETIRED) Incision 04/12/19; 1041; 04/12/19 1041 by 05/13/21 141 8 by Abdomen; [facility] AG Sarah Solis, [facility] SURG ADH 3.5X12 (x1); R.N. d, Schedul [...] How often do you attend mu-ism or sabianism More than 4 time s [...] 10:07 AM Performed by: Alfonso Bonner CRNA RRoevrto Authorized by: Alfonso Schmitz M.D., JBrittaneyDBrittaney Patient [...] Procedure Summary Date: 04/12/19 Room / Location: [facility] 1401 / [facility] GI Anesthesia Start: 1003 Anesthesia Stop: [...] 04/12/19 1003 Procedure: SECTION (N/A ) Location: [address] 1401 / [facility] Surgeon: Xin De Leon M.D. Pertinent components [...] Bonner CRNA RBrittaneyNBrittaney - 07/14/2019 1:05 PM SKIRT CLIPPER Addendum created 07/14/19 1305 by Alfonso Bonner CRNA, R.NBrittaney Care Path modified T CLIPPER Addendum Note - Alfonso Bonner CRNA RRoverto [...] documented as of this encounter Care Teams Big Data Engineer Relationship Specialty Start Date End Date Blaire Bundy P.A.-C. PCP - General 02/04/17 04/26/19 documented as of this encounter
--- OUTSIDE RECORDS SUMMARY | 2022-07-24 08:25 | XMS_ITS | Encounter Summary ---
:1985 Author Organization [facility] Address [address] [place] [address] Care Team Providers Name Role Phone Blaire Bundy P.A.-C. Primary Care Provider Reason for Referral Outpatient (Routine) - Closed Specialty Diagnoses / Procedures Referred By Contact Refer red To Contact Obstetrics and Diagnoses PAR Melany Montoya [facility] Gynecology CHRISTOPH RIVERO, M.S.N., B.S.N., R.N. [address] [facility] [place] [address] Referral ID Status Reason Start Date Expiration Date Visits Requ ested Visits Authorized [id number] Closed 04/19/2019 04/18/2020 1 1 Scheduling Instructions Add to my schedule 0815 Reason for Visit Reason Comments Post-op Visit Encounter Details Date Type Department Care Team Description 04/19/2019 Office Visit Department of Melany Montoya, S ection Obstetrics and CHRISTOPH RIVERO, Delivery ([facility] ) Gynecology in [facility] M.S.NBrittaney, B.S.N., (Primar y Dx) [place], [place] R.N. [address] [facility] [address] [facility] [place] [address] [phone] Social History Tobacco Use Types Packs/Day Years [...] How often do you attend congregation or mormon More than 4 time s [...] documented as of this encounter Care Teams Wellness Spa Manager Relationship Specialty Start Date End Date Blaire Bundy P.A.-C. PCP - General 02/04/17 04/26/19 documented as of this encounter
--- OUTSIDE RECORDS SUMMARY | 2022-07-24 08:25 | XMS_ITS | Encounter Summary ---
:1985 Author Organization [facility] Address [address] [place] [address] Care Team Providers Name Role Phone Alberto Locke M.D. Primary Care Provider Encounter Details Date Type Department Care Team Description 05/31/2019 Hospital Encounter Department of Alberto Locke Anemia P regnancy Laboratory Medicine M.Kelly (HCC) in [address] [address] [place], [place] [phone] [address] (Work) [phone] Social History Tobacco Use Types Packs/Day Years [...] How often do you attend religion or judaism More than 4 time s [...] to pay for the very basics like TrackaPhonew hat hard 07/09/2020 food, housing, medical care, [...] Code Phon e Number [facility]- [address] [place] [address] [address] [facility] [place] [address] System in [place] [address] documented in this encounter Visit Diagnoses Diagnosis Anemia (HCC) documented in this encounter Additional Health Concerns Assessment Noted Time PHQ-9 Depression Total Score: 3 05/30/2019 10:59 AM CD T documented as of this encounter Care Teams Derivatives Trader Relationship Specialty Start Date End Date Alberto Locke M.D. PCP - General Family Medicine 04/27/19 [address] [place] [address] documented as of this encounter
--- OUTSIDE RECORDS SUMMARY | 2022-07-24 08:25 | XMS_ITS | Encounter Summary ---
:1985 Author Organization [facility] Address [address] [place] [address] Care Team Providers Name Role Phone Alberto Locke M.D. Primary Care Provider Reason for Visit Reason Comments URI Appointment Request (Routine) - Closed Specialty Diagnoses / Procedures Referred By Contact Refer red To Contact Family Medicine Referral ID Status Reason Start Date Expiration Date Visits Requ ested Visits Authorized [id number] Closed 09/11/2019 09/10/2020 1 1 Encounter Details Date Type Department Care Team Description 09/11/2019 Office Visit Department of Family Gerda Pike [facility] (Primary Dx); Medicine, [place] PLATFORM OPERATIONS DIRECTOR, C.N.P., Phar yngitis Acute; Clinic, in [place] D.N.PBrittaney Body Mass Index 50.0 To 59.9 Adult (HCC) ; [place] [address] Abuse Tobacco Smoking [address] [place] [phone] Social History Tobacco Use Types Packs/Day Years [...] Comments Blood Pressure 130/73 09/11/2019 9:34 AM BEAM DYER Pulse 92 09/11/2019 9:34 AM BEAM DYER Temperature 35.7 ??C (96.3 ??F) 09/11/2019 9:34 AM BEAM DYER Respiratory Rate - - Oxygen Saturation 95% 09/11/2019 9:34 AM BEAM DYER Inhaled Oxygen Concentration - - Weight 136 kg (299 lb 13.2 oz) 09/11/2019 9:34 AM BEAM DYER Height - - Body Mass Index 54.82 [...] No h/o asthma. No fever reducers today. DYER Gerda Pike APRN, C.NJud, D.N.P. - 09/11/2019 [...] the content. Gerda Pike APRN, C.N.P., D.N.P. DYER documented in this encounter Plan of Treatment Not on filedocumented as of this encounter Procedures Procedure Name Priority Date/Time Associated Diagnosis Comme nts INFLUENZA A, B, Routine 09/11/2019 10:29 AM Resul ts for this RSV, PCR, POCT BEAM DYER procedure are in the results section. STREP GROUP A, PCR, Routine 09/11/2019 10:17 AM R esults for this POCT BEAM DYER procedure are i n the results section. STREP GROUP A, PCR, Routine 09/11/2019 9:52 AM Pharyngitis Acu te Results for this POCT BEAM DYER procedure are i n the results section. INFLUENZA A, B, Routine 09/11/2019 9:52 AM Cough Result s for this RSV, PCR, POCT BEAM DYER procedure are in the results section. documented in this encounter Results Influenza A/B and RSV, PCR, Point of Care (09/11/2019 10:29 AM BEAM DYER) P athologist Signature Influenza A, Negative Negative 09/11/2019 CNFL POCT 10:29 AM BEAM DYER Influenza B, Negative Negative 09/11/2019 CNFL POCT 10:29 AM BEAM DYER Resp Syncytial Negative Negative 09/11/2019 CNFL Virus, POCT 10:29 AM BEAM DYER Specimen Anatomical Collection Method Collection Time Receive d Time (Source) Location / / Volume Laterality Varies 09/11/2019 10:29 09/11/2019 AM BEAM DYER 10:30 AM BEAM DYER Generic Rals LAB POCT ORDERABLES - DEVICE Performing Organization Address [facility] Phon e Number [address] [address] [place] [address] [address] Strep Group A, PCR, Point of Care (09/11/2019 10:17 AM BEAM DYER) athologist Signature Strep Group A, Negative Negative 09/11/2019 CNFL PCR, POCT 10:17 AM BEAM DYER Specimen Anatomical Collection Method Collection Time Receive d Time (Source) Location / / Volume Laterality Varies 09/11/2019 10:17 09/11/2019 AM BEAM DYER 10:21 AM BEAM DYER Generic Rals LAB POCT ORDERABLES - DEVICE Performing Organization Address [facility] Phon e Number [address] [address] [place] [address] System [address] Strep Group A, PCR, Point of Care (09/11/2019 9:52 AM BEAM DYER) Analysis Performed At Patho logist Time Signature Strep Group A, Collected DEFAULT 09/11/2019 CNFL PCR, POCT 9:58 AM BEAM DYER Specimen Anatomical Collection Method Collection Time Receive d Time (Source) Location / / Volume Laterality Varies (Throat) 09/11/2019 9:52 AM 2019 9:58 BEAM DYER AM BEAM DYER Marlyn Camacho APRN.N.P., D.N.P. LAB POCT ORDERABL ES - DEVICE Performing Organization Address [facility] Code Phon e Number [address] [address] [place] [address] System [address] Influenza A/B and RSV, PCR, Point of Care (09/11/2019 9:52 AM BEAM DYER) Analysis Performed At Patho logist Time Signature Influenza A, Collected DEFAULT 09/11/2019 CNFL B, RSV, PCR, 9:58 AM BEAM DYER POCT Specimen Anatomical Collection Method Collection Time Receive d Time (Source) Location / / Volume Laterality Varies 09/11/2019 9:52 AM 0 9:58 (Nasopharynx) BEAM DYER AM BEAM DYER Marlyn Camacho APRN.N.P., D.N.P. LAB POCT ORDERABL ES - DEVICE Performing Organization Address [facility] Code Phon e Number [address] [address] [place] [address] System [address] documented in this encounter Visit Diagnoses Diagnosis Cough Unspecified Type - Primary Pharyngitis Acute Body Mass Index 50.0 To 59.9 Adult (HCC) Abuse Tobacco Smoking documented in this encounter Additional Health Concerns Assessment Noted Time PHQ-9 Depression Total Score: 3 05/30/2019 10:59 AM CD T documented as of this encounter Care Teams Cinder Block Mason Relationship Specialty Start Date End Date Alberto Locke M.D. PCP - General Family Medicine 04/27/[address] [place] [address] [place] [address] documented as of this encounter
--- OUTSIDE RECORDS SUMMARY | 2022-07-24 08:26 | XMS_ITS | Encounter Summary ---
:1985 Author Organization [facility] Address [address] [place] [address] Care Team Providers Name Role Phone Blaire Bundy P.A.-C. Primary Care Provider [phone] Reason for Visit Reason Comments Contraception Appointment Request (Routine) - Closed Specialty Diagnoses / Procedures Referred By Contact Refer red To Contact Obstetrics and Diagnoses PAR REVIEW [facility] Gynecology Procedures OBG NEW THREADER Referral ID Status Reason Start Date Expiration Date Visits Requ ested Visits Authorized [id number] Closed 07/01/2018 07/01/2019 1 1 Encounter Details Date Type Department Care Team Description 07/20/2018 Comprehensive Visit Department of Leonora Villaseñor Inser tion Contraceptive Subdermal (Primary Dx); Obstetrics and HEALTH PLAN ADVISOR, C.N.P. Morbid Obesity Body Mass Index 50.0-59.9 Adult (HCC) Gynecology in [address] [address] Social History Tobacco Use [...] How often do you attend restoration or anabaptist More than 4 time s [...] Comments Blood Pressure 140/90 07/20/2018 10:50 AM COMPLIANCE AUDITOR Pulse - - Temperature - - Respiratory Rate - - Oxygen Saturation - - Inhaled Oxygen Concentration - - Weight 142 kg (313 lb 0.9 oz) 07/20/2018 10:50 AM COMPLIANCE AUDITOR Height - - Body Mass Index 57.24 [...] the patient and/or decision maker.: Not addressed Cornucopia protocol: All relevant documentation and testing were [...] completed successfully: yes Complications: no apparent complications THREADER Subjective: Patient is here to discuss control [...] not yet be positive. According to the [facility] quick start control care model she will repeat a test at home in 1-2 weeks, and return to clinic if a positive test. Backup control is advised for 1 week. She also has questions about weight loss surgery, weight loss. Consult is placed to [facility] in [place]. LIANCE AUDITOR documented in this encounter Plan of Treatment Not on filedocumented as of this encounter Procedures Procedure Name Priority Date/Time Associated Diagnosis Comme nts NH INS Routine 07/20/2018 11:00 Insertion Results for this NON-BIODEGRADABLE AM COMPLIANCE AUDITOR Contraceptive procedure are in DRUG DEL Subdermal the results section. documented in this encounter Results NH INS NON-BIODEGRADABLE DRUG DEL (07/20/2018 11:00 AM COMPLIANCE AUDITOR) Narrative MMODAL - 07/20/2018 11:00 AM COMPLIANCE AUDITOR Leonora Villaseñor, HEALTH PLAN ADVISOR, C.N.P. ? 07/20/2018 ??1:27 PM Subdermal Contraceptive [...] the patient and/or decision maker.: ??Not addressed Cornucopia protocol: ??All relevant documentation and testin g [...] 68 mg subdermal Given 07/20/2018 1:21 PM COMPLIANCE AUDITOR 1 each implant 1 each (NEXPLANON) 1 each, subdermal, One-Time, Starting on Wed07/20/18 at 1321, For 1 dose documented in this encounter Additional Health Concerns Assessment Noted Time PHQ-9 Depression Total Score: 7 04/07/2017 9:39 AM CDT documented as of this encounter Care Teams Aircraft Log Clerk Relationship Specialty Start Date End Date Blaire Bundy P.A.-C. PCP - General 02/04/17 04/26/19 documented as of this encounter
--- OUTSIDE RECORDS SUMMARY | 2022-07-24 08:26 | XMS_ITS | Encounter Summary ---
:[address] [facility] Address [address] [place] [address] Care Team Providers Name Role Phone Blaire Bundy P.A.-C. Primary Care Provider [phone] Reason for Visit Auth/Cert Specialty Diagnoses / Procedures Referred By Contact Refer red To Contact Diagnoses Gallstone With Common Bile Duct Stone Procedures [place] LAPAROSCOPY CHOLECYST W CHOLNG LAPAROSCOPIC CHOLECYSTECTOMY WITH CHOLANGIOGRAM Referral ID Status Reason Start Date Expiration Date Visits Requ ested Visits Authorized [id number] 1 1 Encounter Details Date Type Department Care Team Description 03/03/2018 Anesthesia Event [facility] MAIN OR Matthew Plascencia M.D. [address] [facility] [address] [facility] [place] [address] [place] [phone] [address] (Wo rk) Anesthesia Record Procedure Summary [...] by and dermabond; Antionette Cooper CRT, R.N. [facility] WND ADH NEONAT 2X3.75 d, [...] 1015 by Placement Time: 0837 Rosalee Xiong, WIRE LATHER, Rosalee Xiong, WIRE LATHER, (created via procedure HORSE EXERCISER HORSE EXERCISER documentation); Mask Ventilation: Oral/Nasal airway needed; Type: Standard ETT; Single Lumen Tube Size: 7 mm; Cuffed: Yes; Location: Oral; Removal Date: 03/03/18; Removal Time: 1015 (RETIRED) Incision 03/03/18; 952; Abdomen; 03/03/18 0953 by 1418 by Darius Coyle CRT, R.N. May k-Bminue-Urfspxauo GZ STRL 8PLY 2X2; d, Scheduling 05/13/21 [...] How often do you attend voodoo or anglican More than 4 time s [...] Date: 03/03/18 Room / Location: OR 03 [facility] 1404 / [facility] OR Anesthesia Start: 826 Anesthesia Stop: [...] patient / legal guardian, or through an lens gauger; patient evaluated and approved for anesthesia / [...] no complications Procedure Note Rosalee Xiong, JOSEFA, HORSE EXERCISER - 03/03/2018 8 :54 AM CDT Airway [...] documented as of this encounter Care Teams Streaming Media Specialist Relationship Specialty Start Date End Date Blaire Bundy P.A.-C. PCP - General 02/04/17 04/26/19 documented as of this encounter
--- OUTSIDE RECORDS SUMMARY | 2022-07-24 08:26 | XMS_ITS | Encounter Summary ---
:1985 Author Organization [facility] Address [address] [place] [address] Care Team Providers Name Role Phone Blaire Bundy P.A.-C. Primary Care Provider [phone] Reason for Referral Outpatient (Routine) - Closed Specialty Diagnoses / Procedures Referred By Contact Refer red To Contact Diagnoses Gallstone Edd Moeller D.O. [facility] Region Procedures [place] Fluoro Less Than 1 Hour UT FLUOROSCOPY EXAM UP TO 1 HR HC FLUOROSCOPY EXAM UP TO 1 HR UT FLUOROSCOPY EXAM UP TO 1 HR [address] [place] [place] [address] Referral ID Status Reason Start Date Expiration Date Visits Requ ested Visits Authorized [id number] Closed 03/03/2018 03/03/2019 1 1 Reason for Visit Auth/Cert Specialty Diagnoses / Procedures Referred By Contact Refer red To Contact Diagnoses Gallstone With Common Bile Duct Stone Procedures [place] LAPAROSCOPY CHOLECYST W CHOLNG LAPAROSCOPIC CHOLECYSTECTOMY WITH CHOLANGIOGRAM Referral ID Status Reason Start Date Expiration Date Visits Requ ested Visits Authorized [id number] 1 1 Encounter Details Date Type Department Care Team Description 03/03/2018 Hospital Encounter Department of Radiology Raphael Moeller, [place] [address] [place] [address] [place] [address] [phone] (Wo rk) Social History Tobacco Use Types [...] How often do you attend sikh or faith More than 4 time s [...] Time Received Time / Laterality Volume Narrative [id number] - 03/03/2018 10:01 AM CDT This exam does not require a radiologist review or interpretation. Please refer to the patient? s medical record on this date for clinical details. Edd CH FLUOROSCOPY PROCEDURES Performing Organization Address City/State/ZIP Code Phon e Number [id number] [place] documented in this encounter Visit Diagnoses Diagnosis Gallstone documented in this encounter Additional Health Concerns Assessment Noted Time PHQ-9 Depression Total Score: 7 04/07/2017 9:39 AM CDT documented as of this encounter Care Teams [employer] Retailer Sales Consultant Relationship Specialty Start Date End Date Blaire Bundy P.A.-C. PCP - General 02/04/17 04/26/19 documented as of this encounter
--- OUTSIDE RECORDS SUMMARY | 2022-07-24 08:26 | XMS_ITS | Encounter Summary ---
:1985 Author Organization [facility] Address [address] [place] [address] Care Team Providers Name Role Phone Blaire Bundy P.A.-C. Primary Care Provider [phone] Encounter Details Date Type Department Care Team Description 05/11/2018 Immunization Department of Blaire Bundy P.A.-C. [address] [place], [place] [id number] Need Vaccine Pediatrics in [place] Zeinab Gong, L.P.N. [address] [place] [address] Immunization ([place], [place] Dx) [address] [place] [address] Social History Tobacco Use Types [...] How often do you attend episcopal or mormonism More than 4 time s [...] documented as of this encounter Care Teams Shelter Case Manager Relationship Specialty Start Date End Date Blaire Bundy P.A.-C. PCP - General 02/04/17 04/26/19 documented as of this encounter
--- OUTSIDE RECORDS SUMMARY | 2022-07-24 08:26 | XMS_ITS | Encounter Summary ---
:1985 Author Organization [facility] Address [address] [place] [address] Care Team Providers Name Role Phone Blaire Bundy P.A.-C. Primary Care Provider [phone] Encounter Details Date Type Department Care Team Description 07/21/2018 Orders Only Department of Obstetrics Leonora Reaves A PRN, and Gynecology in [address] [address] [place] [address] [phone] Social History Tobacco Use Types Packs/Day Years [...] How often do you attend mormonism or synagogue More than 4 time s [...] as of this encounter Care Teams Senior Graphic Designer Relationship Specialty Start Date End Date Blaire Bundy P.A.-C. PCP - General 02/04/17 04/26/19 documented as of this encounter
--- OUTSIDE RECORDS SUMMARY | 2022-07-24 08:26 | XMS_ITS | Encounter Summary ---
:1985 Author Organization [facility] Address [address] [place] [address] Care Team Providers Name Role Phone Blaire [...] Diagnoses Pain Toe Pain Toe Blaire Bundy, [facility] Procedures ORS CONS FOOT POD P.A.-C. [address] [place], [place] [address] Referral ID Status Reason Start Date Expiration Date Visits Requ ested Visits Authorized [id number] Closed 02/18/2018 02/18/2019 1 1 Encounter Details Date Type Department Care Team Description 03/14/2018 Comprehensive Visit Department of Riccardo Cottrell, Ingrown Nail (Primary Dx); Orthopedic Surgery Mickey Nuñez Pain Toe; in [place], [facility] [address] FABIAN Onychomycosis; [place], [place] High Risk Medication [address] [place] [address] [place], [place] [phone] [address] (Work) [phone] Social History Tobacco Use Types Packs/Day Years [...] How often do you attend adventism or islam More than 4 time s [...] 10:04 AM Onychomycos is Results for this [facility] S T High Risk Medication procedu re are in the results section. documented in this encounter Results (ABNORMAL) Hepatic Function Panel (03/14/2018 10:04 AM CDT) [facility] Method Time Signature Bilirubin, Total, S 0.9 <=1.2 03/14/2018 [facility] mg/dL 10:53 AM T [facility] Bilirubin, Direct, S 0.2 0.0 - 0.3 03/14/2018 [facility] mg/dL 10:53 AM [facility] Aspartate 18 8 - 43 03/14/2018 [facility] Aminotransferase U/L 10:53 AM [facility] Alanine 15 7 - 45 03/14/2018 [facility] Aminotransferase U/L 10:53 AM [facility] Alkaline 69 37 - 98 03/14/2018 [facility] Phosphatase, S U/L 10:[address] [facility] Albumin, S 3.5 3.5 - 5.0 03/14/2018 [facility] g/dL 10:[address] [facility] Protein, Total, S 6.2 (L) 6.3 - 7.9 03/14/2018 [facility] g/dL 10:[address] [facility] Specimen Anatomical Collection Method Collection Time Receive d Time (Source) Location / / Volume Laterality Blood (Blood, 03/14/2018 10:04 03/14/2018 Venous) AM CDT 10:09 AM CDT Gloria Johnson D.P.M. LAB BLOOD ADD-ON Performing Organization Address City/State/[facility] Code Phon e Number [facility] [id number] [address] [facility] documented in this encounter Visit Diagnoses Diagnosis Ingrown Nail - Primary Pain Toe Onychomycosis High Risk Medication documented in this encounter Additional Health Concerns Assessment Noted Time PHQ-9 Depression Total Score: 7 04/07/2017 9:39 AM CDT documented as of this encounter Care Teams Natural Resources Instructor Relationship Specialty Start Date End Date Blaire Bundy P.A.-C. PCP - General 02/04/17 04/26/19 documented as of this encounter
--- OUTSIDE RECORDS SUMMARY | 2022-07-24 08:26 | XMS_ITS | Encounter Summary ---
:1985 Author Organization [facility] Address [address] [place] [address] Care Team Providers Name Role Phone Blaire Bundy P.A.-C. Primary Care Provider [phone] Reason for Visit Auth/Cert Specialty Diagnoses / Procedures Referred By Contact Refer red To Contact Diagnoses Gallstone With Common Bile Duct [place] Procedures [place] LAPAROSCOPY CHOLECYST W CHOLNG LAPAROSCOPIC CHOLECYSTECTOMY WITH CHOLANGIOGRAM Referral ID Status Reason Start Date Expiration Date Visits Requ ested Visits Authorized [id number] 1 1 Encounter Details Date Type Department Care Team Description 03/03/2018 Surgery [facility] MAIN OR Jaquan Monahan LAPAROSCOPIC [address] MICHELLE P, D.O. CHOLECYSTECTOMY POSSIBLE [place], [place] [address] CHOLANGIOGRAM [address] [place] [address] Social History Tobacco Use Types [...] How often do you attend jain or restorationist More than 4 time s [...] through Care Everywhere.Home Care Following Gallbladder Surgery (Spanish)documented in this encounter Medications at Time [...] Role: * Jaquan Monahan D.O. - Primary Instrument Repairer Helper: Naye Stockton L.P.N. Anesthesia Type: General Pre-Operative [...] of these were recovered in the suction freight delivery driver. The gallbladder was placed in Endo-Catch bag [...] Name Type Priority Associated Diagnoses Order S [facility] General Surgery Outpatient Referral Routine Gallstone With [...] Component Value Ref Test Analysis Performed At [facility] Range Method Time Signature PATHOLOGY Patient Name: PUNEET CLAYTONBrittaney [facility] MR#: [id number] [facility] Submitting Physician: JAQUAN MONAHAN DO [id number] Specimen #[id number] Performing Lab: ??[facility] ? [address] [facility] [address] Source: Gallbladder Clinical History/Pre-Op Gallstone with common [...] trabeculated. ??The mucosal wall measures 0.2 cm. ??Mounter Sousaphones sections are submitted in cassette A1. KG/ps ?? Diagnosis Gallbladder, cholecystectomy: CHOLELITHIASIS. Electronically Signed By USAMA MALDONADO MD - 03/04/2018 pjs/03/04/2018 Specimen (Source) Anatomical Collection Method Collection Time Re ceived Time Location / / Volume Laterality Tissue 03/03/2018 9:54 AM (Gallbladder) CDT Jaquan Monahan D.O. LAB SURG PATH ORDERABLES Performing Organization Address City/State/ZIP Code Phon e Number [facility] [place] [address] [place] [address] documented in this encounter Visit Diagnoses Diagnosis [...] 843 (Given - Provider: Rosalee Desir APRN, DRILL FOREMAN) 500 mg, intravenous, at 200 mL/hr, Admin [...] (Rate/Dose Verify - Provider: Rosalee Desir APRN, DRILL FOREMAN)1019 (Anesthesia Volume Adjustment - Provider: Rosalee Desir [...] 1033, Drug Monitoring Program: [facility] medication order based on comorbities and indication. documented in this encounter Additional Health Concerns Assessment Noted Time PHQ-9 Depression Total Score: 7 04/07/2017 9:39 AM CDT documented as of this encounter Care Teams Curriculum Designer Relationship Specialty Start Date End Date Blaire Bundy P.A.-C. PCP - General 02/04/17 04/26/19 documented as of this encounter
--- OUTSIDE RECORDS SUMMARY | 2022-07-24 08:26 | XMS_ITS | Encounter Summary ---
:1985 Author Organization [facility] Address [address] [place] [address] Care Team Providers Name Role Phone Blaire Bundy P.A.-C. Primary Care Provider [phone] Reason for Visit Reason Comments Post-op Lap emma 03/03/18 Outpatient (Routine) - Closed Specialty Diagnoses / Procedures Referred By Contact Refer red To Contact General Surgery Diagnoses Gallstone With Common Bile Duct Stone par review Edd Moeller, [facility] Procedures GNS POST OP D.O. [address] [place] [address] Referral ID Status Reason Start Date Expiration Date Visits Requ ested Visits Authorized [id number] Closed 03/03/2018 03/03/2019 1 1 Encounter Details Date Type Department Care Team Description 03/16/2018 Office Visit Department of General Edd Moeller Ga llstone With Common Surgery in Jason Rivera D.O. Bile Duct [place] [address] [facility] [address] [place] [address] [place] [phone] [address] (Work) [phone] Social History Tobacco Use Types Packs/Day Years [...] How often do you attend mu-ism or protestant More than 4 time s [...] happy to reevaluate as needed Job ID: [id number] documented in this encounter Plan of Treatment Not on filedocumented as of this encounter Visit Diagnoses Diagnosis Gallstone With Common Bile Duct Stone documented in this encounter Additional Health Concerns Assessment Noted Time PHQ-9 Depression Total Score: 7 04/07/2017 9:39 AM CDT documented as of this encounter Care Teams Master Control Engineer Relationship Specialty Start Date End Date Blaire Bundy P.A.-C. PCP - General 02/04/17 04/26/19 documented as of this encounter
--- OUTSIDE RECORDS SUMMARY | 2022-07-24 08:26 | XMS_ITS | Encounter Summary ---
:1985 Author Organization [facility] Address [address] [place] [address] Care Team Providers Name Role Phone Blaire Bundy P.A.-C. Primary Care Provider [phone] Reason for Referral Outpatient (Routine) - Closed Specialty Diagnoses / Procedures Referred By Contact Refer red To Contact Orthopedic Surgery Diagnoses Pain Toe Pain Toe Blaire Bundy [facility] Procedures ORS CONS FOOT POD P.A.-C. [address] [place], [place] [address] Referral ID Status Reason Start Date Expiration Date Visits Requ ested Visits Authorized [id number] Closed 02/18/2018 02/18/2019 1 1 Scheduling Instructions [...] Cholecystitis With Obstruction par review Edd Moeller [facility] Procedures RAY D.O. [address] [place] [address] Referral ID Status Reason Start Date Expiration Date Visits Requ ested Visits Authorized [id number] Closed 02/11/2018 02/11/2019 1 1 Encounter Details Date Type Department Care Team Description 02/18/2018 Office Visit Department of Family Blaire Bundy perative Exam (Primary Dx); MedicineFlorentino P.A.-C. 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; [place] [address] Elvis Swenson Gallstone With Common Bile Duct Stone; [place], [place] Anemia Pos themorrhagic Acute; [place] [address] [place] [address] [address] [phone] [place], [place] (Work) [phone] Social History Tobacco Use [...] How often do you attend zoroastrian or amish More than 4 time s [...] having a cholecystomy with Dr. Moeller in [place] on 03/03/2018. The patient notes she continues [...] Index 50.0 To 59.9 Adult ([facility]) ??? Abuse Tobacco Smoking- Smokes infrequently/socially, 1-2 [...] RETROGRADE CHOLANGIOPANCREATOGRAPHY; Surgeon: Rubio Baker M.D.; Location: [facility] OR ??? ESOPHAGOGASTRODUODENOSCOPY N/A 11/11/2017 Procedure: ESOPHAGOGASTRODUODENOSCOPY; Surgeon: Ruboi Baker M.D.; Location: [facility] GI LAB ??? LAPAROSCOPIC APPENDECTOMY N/A 09/08/2017 Procedure: LAPAROSCOPIC APPENDECTOMY; Surgeon: Edd Moeller D.O.; Location: [facility] OR ??? OTHER CONVERTED [...] with Differential, Blood (02/18/2018 10:42 AM CDT) [facility] Method Time Signature Hemoglobin 11.3 (L) 11.6 - 02/18/2018 [facility] 15.0 g/dL 10:54 AM [facility] Hematocrit 37.3 35.5 - 02/18/2018 [facility] 44.9 % 10:54 AM T [facility] [employer] [employer] [facility] Erythrocytes 4.95 3.92 - 02/18/2018 [facility] 5.13 10:54 AM CDT HEALTH x10(12)/L [facility] MCV 75.4 (L) 78.2 - 02/18/2018 [facility] 97.9 fL 10:54 AM T [facility] RBC Distrib Width 15.3 12.2 - 02/18/2018 [facility] 16.1 % 10:54 AM [facility] [employer] [facility] Platelet Count 285 157 - 371 02/18/2018 [facility] x10(9)/L 10:54 AM [facility] Leukocytes 7.0 3.4 - 9.6 02/18/2018 [facility] x10(9)/L 10:54 AM T [facility] Neutrophils 4.71 1.56 - 02/18/2018 [facility] 6.45 10:54 AM CDT HEALTH x10(9)/L [facility] Lymphocytes 1.76 0.95 - 02/18/2018 [facility] 3.07 10:54 AM CDT HEALTH x10(9)/L [facility] Monocytes 0.35 0.26 - 02/18/2018 [facility] 0.81 10:54 AM CDT [employer] x10(9)/L [facility] Eosinophils 0.18 0.03 - 02/18/2018 [facility] 0.48 10:54 AM CDT [employer] x10(9)/L [facility] Basophils 0.03 0.01 - 02/18/2018 [facility] 0.08 10:54 AM T [employer] x10(9)/L [facility] Specimen Anatomical Collection Method Collection Time Receive d Time (Source) Location / / Volume Laterality Blood (Blood, 02/18/2018 10:42 02/18/2018 Venous) AM CDT 10:46 AM CDT Edd Moeller D.O. LAB BLOOD ADD-ON Performing Organization Address City/State/ZIP Code Phon e Number [facility]- [address] [place] [address] [facility] documented in this encounter Visit Diagnoses Diagnosis Preoperative Exam - Primary 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 Gallstone With Common Bile Duct Stone Anemia Posthemorrhagic Acute (Blood Loss Anemia) Pain Toe documented in this encounter Additional Health Concerns Assessment Noted Time PHQ-9 Depression Total Score: 7 04/07/2017 9:39 AM CDT documented as of this encounter Care Teams Gypsum Calciner Relationship Specialty Start Date End Date Blaire Bundy P.A.-C. PCP - General 02/04/17 04/26/19 documented as of this encounter
--- OUTSIDE RECORDS SUMMARY | 2022-07-24 08:26 | XMS_ITS | Encounter Summary ---
:1985 Author Organization [facility] Address [address] [place] [address] Care Team Providers Name Role Phone Blaire Bundy P.A.-C. Primary Care Provider Encounter Details Date Type Department Care Team Description 03/14/2018 Orders Only Department of Gloria Johnson High Risk Medication Orthopedic Surgery in R, D.P.M. (Primary Dx) [place], [place] [address] [place]AB[place] [address] [place] [address] [phone] Social History Tobacco Use Types Packs/Day Years [...] documented as of this encounter Care Teams Coater Brake Linings Relationship Specialty Start Date End Date Blaire Bundy P.A.-C. PCP - General 02/04/17 04/26/19 documented as of this encounter
--- OUTSIDE RECORDS SUMMARY | 2022-07-24 08:26 | XMS_ITS | Encounter Summary ---
:1985 Author Organization [facility] Address [address] [place] [address] Care Team Providers Name Role Phone Blaire Bundy P.A.-C. Primary Care Provider [phone] Reason for Referral Outpatient (Routine) - Closed Specialty Diagnoses / Procedures Referred By Contact Refer red To Contact General Surgery Diagnoses Gallstone With Common Bile Duct Stone par review Jaquan Monahan [facility] Region Procedures GNS POST OP D.O. [address] [place] [address] Referral ID Status Reason Start Date Expiration Date Visits Requ ested Visits Authorized [id number] Closed 03/03/2018 03/03/2019 1 1 Reason for Visit Auth/Cert Specialty Diagnoses / Procedures Referred By Contact Refer red To Contact Diagnoses Gallstone With Common Bile Duct Stone Procedures [place] LAPAROSCOPY CHOLECYST W CHOLNG LAPAROSCOPIC CHOLECYSTECTOMY WITH CHOLANGIOGRAM Referral ID Status Reason Start Date Expiration Date Visits Requ ested Visits Authorized [id number] 1 1 Encounter Details Date Type Department Care Team Description 03/03/2018 Hospital Encounter [facility] OR Jaquan Monahan With [address] P, D.OBrittaney Common Bile Duct [place] [address] [place] [address] [address] [phone] [place], [place] [address] Social History Tobacco Use Types Packs/Day Years [...] How often do you attend denominational or alevism More than 4 time s [...] through Care Everywhere.Home Care Following Gallbladder Surgery (Setswana)documented in this encounter Medications at Time of [...] Role: * Jaquan Monahan D.O. - Primary Proposal Lead Writer: Naye Stockton L.P.N. Anesthesia Type: General Pre-Operative [...] of these were recovered in the suction flat knitter helper. The gallbladder was placed in Endo-Catch bag [...] Time A : Tissue Gallbladder PATHOLOGY SERVICES aJquan Monahan D.O. 03/03/2018 0954 Drains * No [...] Name Type Priority Associated Diagnoses Order S [facility] Surgery Outpatient Referral Routine Gallstone With [...] Component Value Ref Test Analysis Performed At [facility] Method Time Signature PATHOLOGY Patient Name: PUNEET CLAYTON [facility] MR#: [id number] LAUREL Submitting Physician: JAQUAN MONAHAN DO [id number] Specimen #[id number] Performing Lab: ??[facility] ? [address] [place] [address] Source: Gallbladder Clinical History/Pre-Op Gallstone with common [...] trabeculated. ??The mucosal wall measures 0.2 cm. ??Booster Assembler sections are submitted in cassette A1. KG/ps ?? Diagnosis Gallbladder, cholecystectomy: CHOLELITHIASIS. Electronically Signed By USAMA MALDONADO MD - 03/04/2018 pjs/03/04/2018 Specimen (Source) Anatomical Collection Method Collection Time Re ceived Time Location / / Volume Laterality Tissue 03/03/2018 9:54 AM (Gallbladder) CDT Jaquan Monahan D.O. LAB SURG PATH ORDERABLES Performing Organization Address City/State/[facility] Phon e Number [address] [address] documented in this encounter Visit Diagnoses Diagnosis [...] 843 (Given - Provider: Rosalee Desir APRN, PELT GRADER) 500 mg, intravenous, at 200 mL/hr, Admin [...] 0729 (New Bag - Provider: Perri Cooper RBrittaenyNBrittaney)0827 (Rate/Dose Verify - Provider: Rosalee Desir APRN, PELT GRADER)1019 (Anesthesia Volume Adjustment - Provider: Rosalee Desir [...] 1033, Drug Monitoring Program: Pharmacist to a [facility] medication order based on comorbities and indication. documented in this encounter Additional Health Concerns Assessment Noted Time PHQ-9 Depression Total Score: 7 04/07/2017 9:39 AM CDT documented as of this encounter Care Teams Site Specialist Relationship Specialty Start Date End Date Blaire Bundy P.A.-C. PCP - General 02/04/17 04/26/19 documented as of this encounter
--- OUTSIDE RECORDS SUMMARY | 2022-07-24 08:26 | XMS_ITS | Encounter Summary ---
:[address] [facility] Address [address] [place] [address] Care Team Providers Name Role Phone Balire Bundy P.A.-C. Primary Care Provider [phone] Encounter Details Date Type Department Care Team Description 07/20/2018 Hospital Encounter Department of Marisol Irving Contrace ption Personal Laboratory Medicine CONTROL CABINET ASSEMBLER, C.N.P. History in [address] [address] [place], [place] [phone] [address] (Work) [phone] Social History Tobacco Use Types Packs/Day Years [...] How often do you attend restoration or shinto More than 4 time s [...] Results for this POCT, U (LAB) AM PROFESSOR OF PRACTICE History procedure are in the results section. documented in this encounter Results Test, POCT, Urine (lab) (07/20/2018 10:24 AM PROFESSOR OF PRACTICE) P athologist Signature Negative 07/20/2018 [facility] Test, POCT, U 10:31 AM PROFESSOR OF PRACTICE [facility] LAB Specimen Anatomical Collection Method Collection Time Receive d Time (Source) Location / / Volume Laterality Urine (Urine, 07/20/2018 10:24 07/20/2018 Clean Catch) AM PROFESSOR OF PRACTICE 10:24 AM PROFESSOR OF PRACTICE Marisol Irving APRN, C.N.P. LAB POCT ORDERABLES - DEVICE Performing Organization Address City/State/ZIP Code Phon e Number [facility] [address] [place] [address] [place] [address] [facility] documented in this encounter Visit Diagnoses Diagnosis Contraception Personal History documented in this encounter Additional Health Concerns Assessment Noted Time PHQ-9 Depression Total Score: 7 04/07/2017 9:39 AM CDT documented as of this encounter Care Teams Muffle Worker Relationship Specialty Start Date End Date Blaire Bundy P.A.-C. PCP - General 02/04/17 04/26/19 documented as of this encounter
--- OUTSIDE RECORDS SUMMARY | 2022-07-24 08:26 | XMS_ITS | Encounter Summary ---
:1985 Author Organization [facility] Address [address] [place] [address] Care Team Providers Name Role Phone Blaire Bundy P.A.-C. Primary Care Provider [phone] Reason for Visit Reason Onset Date Comments assessment 07/01/2018 First call attempt Encounter Details Date Type Department Care Team Description 07/01/2018 Clinical Communication Department of Leonora Reaves Pr egnancy Obstetrics and JOSEFA C.N.PBrittaney assessment (First Gynecology in [address] call attem pt) [address] [phone] Social History Tobacco Use Types Packs/Day [...] How often do you attend amish or rastafarian More than 4 time s [...] Maurice Ivey R.N. - 07/04/2018 8:40 AM WEATHERIZATION ADMINISTRATOR Addended by: MAURICE IVEY on: 07/04/2018 08:40 AM Modules accepted: Orders HERIZATION ADMINISTRATOR Telephone Encounter - Maurice Ivey R.N. - 07/04/2018 8:36 AM WEATHERIZATION ADMINISTRATOR If yes to any of the following [...] intercourse for two weeks before the procedure HERIZATION ADMINISTRATOR Telephone Encounter - Jayshree Morocho R.N. - 07/01/2018 2:39 PM CST Attempted to contact pt. Left message on identifiable VM to [facility] for more information HERIZATION ADMINISTRATOR Telephone Encounter - Tejal Arora - 07/01/2018 2:00 PM CST Dear Nurse, Patient is not on control and would like to have Nexplanon or an IUD placed. Is there a way you can call Carol and see if a test is needed, prior to appointment. Thank you, Tejal [employer] HERIZATION ADMINISTRATOR documented in this encounter Plan of Treatment Not on filedocumented as of this encounter Results Test, POCT, Urine (lab) (07/20/2018 10:24 AM WEATHERIZATION ADMINISTRATOR) P athologist Signature Negative 07/20/2018 [facility] Test, POCT, U 10:31 AM WEATHERIZATION ADMINISTRATOR [facility] Specimen Anatomical Collection Method Collection Time Receive d Time (Source) Location / / Volume Laterality Urine (Urine, 07/20/2018 10:24 07/20/2018 Clean Catch) AM WEATHERIZATION ADMINISTRATOR 10:24 AM WEATHERIZATION ADMINISTRATOR Marisol Irving APRN C.N.P. LAB POCT ORDERABLES - DEVICE Performing Organization Address City/State/ZIP Code Phon e Number [facility] [address] [facility] [place] [address] [facility] documented in this encounter Visit Diagnoses Diagnosis Contraception Personal History - Primary documented in this encounter Additional Health Concerns Assessment Noted Time PHQ-9 Depression Total Score: 7 04/07/2017 9:39 AM CDT documented as of this encounter Care Teams Adjunct Physical Education Instructor Relationship Specialty Start Date End Date Blaire Bundy P.A.-C. PCP - General 02/04/17 04/26/19 documented as of this encounter
--- OUTSIDE RECORDS SUMMARY | 2022-07-24 08:26 | XMS_ITS | Encounter Summary ---
:1985 Author Organization [facility] Address [address] [place] [address] Care Team Providers Name Role Phone Blaire Bundy P.A.-C. Primary Care Provider [phone] Encounter Details Date Type Department Care Team Description 07/21/2018 Orders Only Department of Leonora Reaves, Morbid Obesi ty Body Obstetrics and BOX ANNEALER, C.N.P. Mass Index 50.0-59.[address] [facility] [address] Adult (HCC) ([place], [place] Dx) [address] [place] [address] [place], [place] [phone] [address] (Work) [phone] Social History Tobacco Use Types Packs/Day Years [...] How often do you attend anabaptism or hindu More than 4 time s [...] as of this encounter Care Teams Power Saw Operator Relationship Specialty Start Date End Date Blaire Bundy P.A.-C. PCP - General 02/04/17 04/26/19 documented as of this encounter
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
--- OUTSIDE RECORDS SUMMARY | 2022-07-24 08:27 | XMS_ITS | Encounter Summary ---
:1985 Author Organization [facility] Address [address] [place] [address] Care Team Providers Name Role Phone Blaire Bundy P.A.-C. 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 [address] [address] [facility] [phone] [place] [phone] Anesthesia Record Procedure Summary Procedure Name Responsible [...] h andoff to the receiving staff during [facility] ch we 1. Identified the [...] by and henok; Antionette Cooper CRT, R.N. [facility] WND ADH NEONAT 2X3.75 d, Schedul ing [...] How often do you attend synagogue or religion More than 4 time s [...] Procedure Summary Date: 11/08/17 Room / Location: [address] 01 140 / [facility] OR Anesthesia Start: 1544 Anesthesia [...] patient / legal guardian, or through an cad designer drafter; patient evaluated and approved for anesthesia / [...] documented as of this encounter Care Teams Gas Plumbing Inspector Relationship Specialty Start Date End Date Blaire Bundy P.A.-C. PCP - General 02/04/17 04/26/19 documented as of this encounter
--- OUTSIDE RECORDS SUMMARY | 2022-07-24 08:27 | XMS_ITS | Encounter Summary ---
:1985 Author Organization [facility] Address [address] [place] [address] Care Team Providers Name Role Phone Blaire Bundy P.A.-C. 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 [address] [phone] Social History Tobacco Use Types Packs/Day Years [...] How often do you attend islam or zoroastrian More than 4 time s [...] Care Providers: Blaire Thornton P.A.-C. (General) [address] [place] [phone] Primary Care Provider Primary Care Provider Admission Date: 11/11/2017 Discharge Date: 11/12/2017 PRINCIPAL DIAGNOSIS Melena SECONDARY DIAGNOSES Active Problems: Hypovolemic Shock (HCC) Morbid obesity Resolved Problems: * No resolved hospital problems. * Operative Procedures: Scheduled (Blank), Completed (Comp) or Canceled (Can) Case IDs Date Procedure Surgeon Location Status [id number] 11/11/17 ESOPHAGOGASTRODUODENOSCOPY Rubio Baker M.D. [facility] GI LAB Blank Past Medical History: Diagnosis Date ??? Sleep Apnea Past Surgical History: Procedure Laterality Date ??? ENDOSCOPIC RETROGRADE CHOLANGIOPANCREATOGRAPHY (ERCP) N/A 11/08/2017 Procedure: ENDOSCOPIC RETROGRADE CHOLANGIOPANCREATOGRAPHY; Surgeon: Rubio Baker M.D.; Location: [facility] OR ??? LAPAROSCOPIC APPENDECTOMY N/A 09/08/2017 Procedure: LAPAROSCOPIC APPENDECTOMY; Surgeon: Edd Moeller D.O.; Location: [facility] OR ??? OTHER CONVERTED SHX [...] 1/3 unit of blood. Coordinated care with [facility] in [place]. Patient will be transferred via ambulance to [...] own decisions. FOLLOW UP APPOINTMENTS: Transfer to [facility] TEST RESULTS PENDING AT DISCHARGE: None. [...] bleeding and would like to transfer to [place]. Still gets winded with any movement. OBJECTIVE [...] ERCPist to treat this. Will transfer to [place] this morning. NPO. Discussed case with Dr. [...] RETROGRADE CHOLANGIOPANCREATOGRAPHY; Surgeon: Rubio Baker M.D.; Location: [facility] OR ??? LAPAROSCOPIC APPENDECTOMY N/A 09/08/2017 Procedure: LAPAROSCOPIC APPENDECTOMY; Surgeon: Edd Moeller D.O.; Location: [facility] OR ??? OTHER CONVERTED SHX [...] 3:51 PM CDTAssociated Order(s): UPPER GI ENDOSCOPY [facility] [place] [facility] Patient Name: Carol Cooley Procedure Date: [...] specimens collected. Recommendation: - After discussing with [place], as she has achieved some hemostasis, will observe. - Continue Protonix 40 mg IV BID. - Minimal clear liquids are OK. - If she continues to significantly bleed, and certainly if she becomes unstable, then will plan on transferring to [place] for further therapy. Findings: The esophagus was [...] 59.9 Adult (FORM[facility]LY [facility]) ??? Abuse Tobacco Smoking ??? Migraine Headache [...] RETROGRADE CHOLANGIOPANCREATOGRAPHY; Surgeon: Rubio Baker M.D.; Location: [facility] OR ??? LAPAROSCOPIC APPENDECTOMY N/A 09/08/2017 Procedure: LAPAROSCOPIC APPENDECTOMY; Surgeon: Edd Moeller D.O.; Location: [facility] OR ??? OTHER CONVERTED SHX [...] - 11/12/2017 9:26 AM CDT Transfer to [place] report given to Don Gabrielle Nguyen R.N. - 11/12/2017 9:22 AM CDT Goals: Clinical Goals for the Shift: reduce heart rate; improve hemoglobin level Identify possible barriers to meeting goals/advancing plan of care: none Stability of the patient: Moderately Stable - Low risk of patient condition declining or worsening End of Shift Summary: pt to transfer to [place] Marcus Mata R.N. 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 LAB BLOOD ADD-ON Performing Organization Address City/State/ZIP Code Phon e Number [facility] [address] [place] [address] [facility] (ABNORMAL) Hemoglobin (11/12/2017 12:21 AM CDT) P athologist Signature Hemoglobin 8.9 (L) 11.6 - 15.0 11/12/2017 [facility] g/dL 12:24 AM CDT [facility] Specimen Anatomical Collection Method Collection Time Receive d Time (Source) Location / / Volume Laterality Blood (Blood, 11/12/2017 12:21 11/12/2017 Venous) AM CDT 12:21 AM CDT Kendal Santacruz APRNNLebron. LAB BLOOD ADD-ON Performing Organization Address City/State/ZIP Code Phon e Number [facility] [address] [place] [address] [facility] [facility] Transfuse Red Blood Cells (11/11/2017 10:52 PM CDT) Kaye Grimes APRN, C.N.P., M.S.N. BLOOD TRANSFUSION O RDERABLES Transfuse Red Blood Cells : , 1 Units (11/11/2017 10:52 PM CDT) Kendal Boudreaux APRNN.P., M.S.N. BLOOD TRANSFUSION O RDERABLES (ABNORMAL) Hemoglobin (11/11/2017 6:15 PM CDT) P athologist Signature Hemoglobin 8.7 (L) 11.6 - 15.0 11/11/2017 [facility] g/dL 6:21 PM CDT [facility] Specimen Anatomical Collection Method Collection Time Receive d Time (Source) Location / / Volume Laterality Blood (Blood, 11/11/2017 6:15 PM 11/12/19 18 6:19 Venous) CDT PM CDT Kendal Santacruz APRNNLebron. LAB BLOOD ADD-ON Performing Organization Address City/State/ZIP Code Phon e Number [facility] [address] [place] [address] [facility] [facility] Transfuse Red Blood Cells (11/11/2017 [...] 11/11/2017 3:5 1 PM CDT [facility] [place] [facility] Patient Name: Carol Cooley Procedure Date: [...] specimens collected. Recommendation: - After discussing with [place], as s he has achieved some hemostasis, will observe. - Continue Protonix 40 mg IV BID. - Minimal clear liquids are OK. - If she continues to significantly ble ed, and certainly if she becomes unstable, then will plan on transferrin g to [place] for further therapy. Findings: The esophagus was [...] Signature Prothrombin 9.4 8.8 - 11.9 11/11/2017 [facility] Time, P sec 12:58 PM CDT [facility] INR 0.9 0.9 - 1.2 11/11/2017 [facility] 12:58 PM CDT [facility] Comment: Standard intensity warfarin therapeutic [...] Phon e Number [facility] [address] [place] [address] [place] [facility] Lactate (11/11/2017 12:39 PM CDT) P athologist Signature Lactate, P 2.1 0.6 - 2.3 11/11/2017 [facility] mmol/L 12:59 PM CDT [facility] Specimen Anatomical Collection Method Collection Time Receive d Time (Source) Location / / Volume Laterality Blood (Blood, 11/11/2017 12:39 11/11/2017 Venous) PM CDT 12:42 PM CDT Nuno Love M.D. LAB BLOOD NON ADD-ON Performing Organization Address City/State/ZIP Code Phon e Number [facility] [address] [place] [address] [facility] documented in this encounter Visit [...] (Gi pablo - Provider: Cammie Schuster RBrittaneyNBrittaney)1608 ([facility] Hold - Provider: Transfer Provider, Automatic - Reason: Patient not available)1735 ([facility] Unhold - Provider: Transfer Provider, Automatic)2032 (Given - Provider: Ruben AyonNBrittaney) 0830 (Given - Provider: Ruben HamlinNBrittaney)0903 (Given - Provider: Gabrielle Nguyen R.N.) 10 mL, intravenous, As needed, line care , Starting on Bryanna 11/11/17 at 1230, Peripheral Intravenous Catheter and Rapid Infusion Catheter, prior to blood sampling, post blood transfusion or post blood sampling sodium chloride injection 3 mL 1608 ([facility] Hold - Provider: Transfer Provider, Automatic - Reason: Patient not available)1735 ([facility] Unhold - Provider: Transfer Provider, Automatic) 3 mL, intravenous, As needed, line care, Starting on Bryanna 11/11/17 at 1230, Prior to and following infusion and between multiple consecutive infusions: sodium chloride 0.9 % injection documented in this encounter Additional Health Concerns Assessment Noted Time PHQ-9 Depression Total Score: 7 04/07/2017 9:39 AM CDT documented as of this encounter Care Teams Supervisor Area Relationship Specialty Start Date End Date Blaire Bundy P.A.-C. PCP - General 02/04/17 04/26/19 documented as of this encounter
--- OUTSIDE RECORDS SUMMARY | 2022-07-24 08:27 | XMS_ITS | Encounter Summary ---
:1985 Author Organization [facility] Address [address] [place] [address] Care Team Providers Name Role Phone Blaire [...] How often do you attend spiritism or jew More than 4 time s [...] documented as of this encounter Care Teams Advertising Sales Executive Relationship Specialty Start Date End Date Blaire Bundy P.A.-C. PCP - General 02/04/17 04/26/19 documented as of this encounter
--- OUTSIDE RECORDS SUMMARY | 2022-07-24 08:27 | XMS_ITS | Encounter Summary ---
:1985 Author Organization [facility] Address [address] [place] [address] Care Team Providers Name Role Phone Blaire Bundy P.A.-C. Primary Care Provider [phone] Reason for Referral Outpatient (Routine) - Closed Specialty Diagnoses / Procedures Referred By Contact Refer red To Contact General Surgery Diagnoses Gallstone With Common Bile Duct Stone Blaire Bundy [facility] Alicia BuckleyABrittaney-CBrittaney [address] [place], [place] [address] Referral ID Status Reason Start Date Expiration Date Visits V isits Requested Authorized [id number] Closed Specialty 11/19/2017 05/18/2018 1 1 Services Required Reason for Visit Reason Comments Post Hospital Follow-up Patient discharged from [facility] on 11/13/17. 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 Patient is complaining of feeling tired and short of breath Encounter Details Date Type Department Care Team Description 11/19/2017 Office Visit Department of Family Blaire Bnudy (Primary Dx); Medicine, Jose Knox Hypovolemic Shock (HCC); Clinic, in [address] Gallstone With Common Bile Duct Stone; [place], [place] Counseling Control [address] [place] [address] [place], [place] [phone] (Work) [phone] Social History Tobacco Use Types Packs/Day Years [...] How often do you attend cheondoism or hoahaoism More than 4 time s [...] of Post Hospital Follow-up (Patient discharged from [facility] on 11/13/17. Was in for Upper GI [...] duodenal ulcer. She was then transferred from [facility] to [facility] for further treatment. In [place] the patient had another EGD which showed [...] Name Type Priority Associated Diagnoses Order S [facility] General Surgery - Outpatient Referral Routine [...] CBC with Differential (11/19/2017 11:35 AM CDT) [facility] gist Method Time Signature Hemoglobin 8.6 (L) 11.6 - 11/19/2017 [facility] 15.0 g/dL 11:58 AM CDT [facility] Hematocrit 27.7 (L) 35.5 - 11/19/2017 [facility] 44.9 % 11:58 AM CDT [facility] Erythrocytes 3.10 (L) 3.92 - 11/19/2017 [facility] 5.13 11:58 AM CDT [facility](12)/[facility] MCV 89.4 78.2 - 11/19/2017 [facility] 97.9 fL 11:58 AM T [facility] RBC Distrib Width 14.9 12.2 - 11/19/2017 [facility] 16.1 % 11:58 AM T [facility] Platelet Count 355 157 - 371 11/19/2017 [facility] x10(9)/L 11:58 AM CDT [facility] Leukocytes 5.6 3.4 - 9.6 11/19/2017 [facility] x10(9)/L 11:58 AM T [facility] Neutrophils 2.80 1.56 - 11/19/2017 [facility] 6.45 11:58 AM CDT [facility] x10(9)/L [facility] [place] [facility] Lymphocytes 2.17 0.95 - 11/19/2017 [facility] 3.07 11:58 AM CDT [facility] x10(9)/L [facility] [place] [facility] Monocytes 0.44 0.26 - 11/19/2017 [facility] 0.81 11:58 AM CDT [facility] x10(9)/L [facility] [place] [facility] Eosinophils 0.22 0.03 - 11/19/2017 [facility] 0.48 11:58 AM CDT [facility]ALTH x10(9)/L [facility] [place] [facility] Basophils 0.01 0.01 - 11/19/2017 [facility] 0.08 11:58 AM CDT [facility] x10(9)/L [facility] [place] [facility] Specimen Anatomical Collection Method Collection Time Receive d Time (Source) Location / / Volume Laterality Blood (Blood, 11/19/2017 11:35 11/19/2017 Venous) AM CDT 11:50 AM CDT Blaire Bundy P.A.-C. LAB BLOOD ADD-ON Performing Organization Address City/[facility] Code Phon e Number [facility] [address] [place] [phone] [place] [facility] documented in this encounter Visit Diagnoses Diagnosis Melena - Primary Hypovolemic Shock (HCC) Gallstone With Common Bile Duct Stone Counseling Control documented in this encounter Additional Health Concerns Assessment Noted Time PHQ-9 Depression Total Score: 7 04/07/2017 9:39 AM CDT documented as of this encounter Care Teams Laundry Route Driver Relationship Specialty Start Date End Date Blaire Bundy P.A.-C. PCP - General 02/04/17 04/26/19 documented as of this encounter
--- OUTSIDE RECORDS SUMMARY | 2022-07-24 08:27 | XMS_ITS | Encounter Summary ---
:1985 Author Organization [facility] Address [address] [place] [address] Care Team Providers Name Role Phone Blaire Bundy P.A.-C. 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 [address] [place] [address] Radha (Primary Dx); 11/12/2017 Encounter Hospital, [place] Taryn Helm M.D. [address] [place] [address] Hypovolemic Shock (HCC); [facility] Third [facility] [address] [place] [address] Social History Tobacco Use Types [...] How often do you attend sabianist or scientology More than 4 time s [...] Care Providers: Blaire Thornton P.A.-C. (General) [address] [place] [phone] Primary Care Provider Primary Care Provider Admission Date: 11/11/2017 Discharge Date: 11/12/2017 PRINCIPAL DIAGNOSIS Melena SECONDARY DIAGNOSES Active Problems: Hypovolemic Shock (HCC) Morbid obesity Resolved Problems: * No resolved hospital problems. * Operative Procedures: Scheduled (Blank), Completed (Comp) or Canceled (Can) Case IDs Date Procedure Surgeon Location Status [id number] 11/11/17 ESOPHAGOGASTRODUODENOSCOPY Rubio Baker M.D. [facility] GI LAB Blank Past Medical History: Diagnosis Date ??? Sleep Apnea Past Surgical History: Procedure Laterality Date ??? ENDOSCOPIC RETROGRADE CHOLANGIOPANCREATOGRAPHY (ERCP) N/A 11/08/2017 Procedure: ENDOSCOPIC RETROGRADE CHOLANGIOPANCREATOGRAPHY; Surgeon: Rubio Baker M.D.; Location: [facility] OR ??? LAPAROSCOPIC APPENDECTOMY N/A 09/08/2017 Procedure: LAPAROSCOPIC APPENDECTOMY; Surgeon: Edd Moeller D.O.; Location: [facility] OR ??? OTHER CONVERTED SHX [...] 1/3 unit of blood. Coordinated care with [facility] in [place]. Patient will be transferred via ambulance to [...] own decisions. FOLLOW UP APPOINTMENTS: Transfer to [facility] TEST RESULTS PENDING AT DISCHARGE: None. [...] bleeding and would like to transfer to [place]. Still gets winded with any movement. OBJECTIVE [...] ERCPist to treat this. Will transfer to [place] this morning. NPO. Discussed case with Dr. [...] RETROGRADE CHOLANGIOPANCREATOGRAPHY; Surgeon: Rubio Baker M.D.; Location: [facility] OR ??? LAPAROSCOPIC APPENDECTOMY N/A 09/08/2017 Procedure: LAPAROSCOPIC APPENDECTOMY; Surgeon: Edd Moeller D.O.; Location: [facility] OR ??? OTHER CONVERTED SHX [...] 3:51 PM CDTAssociated Order(s): UPPER GI ENDOSCOPY [facility] [place] [facility] Patient Name: Carol Cooley Procedure Date: [...] unstable, then will plan on transferring to [place] for further therapy. Findings: The esophagus was [...] RETROGRADE CHOLANGIOPANCREATOGRAPHY; Surgeon: Rubio Baker M.D.; Location: [facility] OR ??? LAPAROSCOPIC APPENDECTOMY N/A 09/08/2017 Procedure: LAPAROSCOPIC APPENDECTOMY; Surgeon: Edd Moeller D.O.; Location: [facility] OR ??? OTHER CONVERTED SHX [...] - 11/12/2017 9:26 AM CDT Transfer to [place] report given to Don Gabrielle Nguyen R.N. - 11/12/2017 9:22 AM CDT Goals: Clinical Goals for the Shift: reduce heart rate; improve hemoglobin level Identify possible barriers to meeting goals/advancing plan of care: none Stability of the patient: Moderately Stable - Low risk of patient condition declining or worsening End of Shift Summary: pt to transfer to [place] Marcus Mata R.N. 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 LAB BLOOD ADD-ON Performing Organization Address City/State/ZIP Code Phon e Number [facility] [address] [place] [address] [facility] (ABNORMAL) Hemoglobin (11/12/2017 12:21 AM CDT) P athologist Signature Hemoglobin 8.9 (L) 11.6 - 15.0 11/12/2017 [facility] g/dL 12:24 AM CDT [facility] Specimen Anatomical Collection Method Collection Time Receive d Time (Source) Location / / Volume Laterality Blood (Blood, 11/12/2017 12:21 11/12/2017 Venous) AM CDT 12:21 AM CDT Marlyn Santacruz APRN.N.P. LAB BLOOD ADD-ON Performing Organization Address City/State/ZIP Code Phon e Number [facility] [address] [place] [address] [facility] Transfuse Red Blood Cells (11/11/2017 10:52 PM CDT) Kaye Grimes APRN, C.N.P., M.S.N. BLOOD TRANSFUSION O RDERABLES Transfuse Red Blood Cells : , 1 Units (11/11/2017 10:52 PM CDT) Kaye Grimes APRN, C.N.P., M.S.N. BLOOD TRANSFUSION O RDERABLES (ABNORMAL) Hemoglobin (11/11/2017 6:15 PM CDT) athologist Signature Hemoglobin 8.7 (L) 11.6 - 15.0 11/11/2017 [facility] g/dL 6:21 PM CDT [facility] Specimen Anatomical Collection Method Collection Time Receive d Time (Source) Location / / Volume Laterality Blood (Blood, 11/11/2017 6:15 PM 11/12/19 18 6:19 Venous) CDT PM CDT Kendal Santacruz APRNN.P. LAB BLOOD ADD-ON Performing Organization Address City/State/ZIP Code Phon e Number [facility] [address] [facility] [place] [address] [place] [facility] Transfuse Red Blood Cells (11/11/2017 3:59 PM CDT) Kendal Santacruz APRNN.P. BLOOD TRANSFUSION ORDER JORI Critical Care (11/11/2017 3:52 PM CDT) Narrative Nuno Love M.D. - 11/11/2017 3:5 2 PM CDT Nuno Loev M.D. ? 11/11/2017 ??3:53 PM Critical Care [...] 11/11/2017 3:5 1 PM CDT [facility] [place] [facility] Patient Name: Carol Cooley Procedure Date: [...] then will plan on transferrin g to [place] for further therapy. Findings: The esophagus was [...] 9.4 8.8 - 11.9 11/11/2017 [facility] Time, P sec 12:58 PM CDT [facility] INR 0.9 0.9 - 1.2 11/11/2017 [facility] 12:58 PM CDT [facility] Comment: [...] e Number [facility] [place] [address] [facility] Lactate (11/11/2017 12:39 PM CDT) P athologist Signature Lactate, P 2.1 0.6 - 2.3 11/11/2017 [facility] mmol/L 12:59 PM CDT [facility] [place] [facility] Specimen Anatomical Collection Method Collection Time Receive d Time (Source) Location / / Volume Laterality Blood (Blood, 11/11/2017 12:39 11/11/2017 Venous) PM CDT 12:42 PM CDT Nuno Love M.D. LAB BLOOD NON ADD-ON Performing Organization Address City/State/ZIP Code Phon e Number [facility] [place] [place] [address] [facility] documented in this encounter Visit [...] Mata R.N.) 4 mg, intravenous, Once, On Braynna 11/11/17 at 2315, For 1 dose pantoprazole [...] Provider, Automatic - Reason: Patient not available)1735 ([facility] Unhold - Provider: Transfer Provider, Automatic) 3 mL, intravenous, As needed, line care, Starting on Bryanna 11/11/17 at 1230, Prior to and following infusion and between multiple consecutive infusions: sodium chloride 0.9 % injection documented in this encounter Additional Health Concerns Assessment Noted Time PHQ-9 Depression Total Score: 7 04/07/2017 9:39 AM CDT documented as of this encounter Care Teams Cook Chef Relationship Specialty Start Date End Date Blaire Bundy P.A.-C. PCP - General 02/04/17 04/26/19 documented as of this encounter
--- OUTSIDE RECORDS SUMMARY | 2022-07-24 08:27 | XMS_ITS | Encounter Summary ---
:1985 Author Organization [facility] Address [address] [place] [address] Care Team Providers Name Role Phone Blaire Bundy P.A.-C. 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 [address] [place] [address] Referral ID Status Reason Start Date Expiration Date Visits Requ ested Visits Authorized [id number] Closed 02/11/2018 02/11/2019 1 1 Encounter Details Date Type Department Care Team Description 02/11/2018 Orders Only Department of General Keo, Lydia Ca lculus Of Bile Duct Surgery in [facility] A, C.M.A. Without Cholangitis Or [place] [address] [facility] With [address] [place], [place]st[place] [address] Dx) [address] Social History Tobacco Use Types [...] How often do you attend tenriism or sikh More than 4 time s [...] documented as of this encounter Care Teams Miller Rod Mill Relationship Specialty Start Date End Date Blaire Bundy P.A.-C. PCP - General 02/04/17 04/26/19 documented as of this encounter
--- OUTSIDE RECORDS SUMMARY | 2022-07-24 08:27 | XMS_ITS | Encounter Summary ---
:1985 Author Organization [facility] Address [address] [place] [address] Care Team Providers Name Role Phone Blaire Bundy P.A.-C. Primary Care Provider [phone] Reason for Referral Outpatient (Routine) - Closed Specialty Diagnoses / Procedures Referred By Contact Refer red To Contact Diagnoses Gallstone With Common Bile Duct Stone Edd Moeller D.O. [facility] [address] [address] Referral ID Status Reason Start Date Expiration Date Visits Requ ested Visits Authorized [id number] Closed 02/09/2018 02/09/2019 1 1 Reason for Visit Reason Comments Cholelithiasis Outpatient (Routine) - Closed Specialty Diagnoses / Procedures Referred By Contact Refer red To Contact General Surgery Diagnoses Gallstone With Common Bile Duct Stone Blaire Bundy [facility] [place]HEMIAH doyle P.A.-C. [address] [place], [place] [address] Referral ID Status Reason Start Date Expiration Date Visits V isits Requested Authorized [id number] Closed Specialty 11/19/2017 05/18/2018 1 1 Services Required Encounter Details Date Type Department Care Team Description 02/09/2018 Comprehensive Visit Department of Juan Moeller Posthemorrhagic Acute (Primary Dx); General Surgery in Edd Gomez, Gallstone With Common Bile Duct Stone Marko Maxwell D.O. [address] [facility] [address] [place] [address] [phone] Social History Tobacco Use Types Packs/Day Years [...] How often do you attend scientology or methodist More than 4 time s [...] She denies alcohol use. She works at [employer] in [place] Social. OBJECTIVE PHYSICAL EXAMINATION General: Ms. Cooley is [...] scheduled in the near future. Job ID: [id number]/imx documented in this encounter Plan of Treatment Scheduled Referrals Name Type Priority Associated Order Schedule Diagnoses Pre Operative Outpatient Referral Routine Gallstone With Expec pipe: Evaluation RAY nurse Common Bile Duct consult (clinic) Stone (Approximat e), Expires: 02/09/2021 documented as of this encounter Results (ABNORMAL) CBC with Differential, Blood (02/18/2018 10:42 AM CDT) [facility] Method Time Signature Hemoglobin 11.3 (L) 11.6 - 02/18/2018 [facility] 15.0 g/dL 10:[address] [facility] Hematocrit 37.3 35.5 - 02/18/2018 [facility] 44.9 % 10:54 AM T [facility] Erythrocytes 4.95 3.92 - 02/18/2018 [facility] 5.13 10:54 AM [facility] x10(12)/L [facility] MCV 75.4 (L) 78.2 - 02/18/2018 [facility] 97.9 fL 10:54 AM [facility] RBC Distrib Width 15.3 12.2 - 02/18/2018 [facility] 16.1 % 10:54 AM [facility] Platelet Count 285 157 - 371 02/18/2018 [facility] x10(9)/L 10:54 AM [facility] Leukocytes 7.0 3.4 - 9.6 02/18/2018 [facility] x10(9)/L 10:54 AM [facility] Neutrophils 4.71 1.56 - 02/18/2018 [facility] 6.45 10:54 AM CDT [facility] x10(9)/L [facility] [place] [facility] Lymphocytes 1.76 0.95 - 02/18/2018 [facility] 3.07 10:54 AM CDT [facility] x10(9)/L [facility] [place] [facility] Monocytes 0.35 0.26 - 02/18/2018 [facility] 0.81 10:54 AM CDT [facility] x10(9)/L [facility] [place] [facility] Eosinophils 0.18 0.03 - 02/18/2018 [facility] 0.48 10:54 AM CDT [facility] x10(9)/L [facility] [place] [facility] Basophils 0.03 0.01 - 02/18/2018 [facility] 0.08 10:54 AM CDT [facility] x10(9)/L [facility] [place] [facility] Specimen Anatomical Collection Method Collection Time Receive d Time (Source) Location / / Volume Laterality Blood (Blood, 02/18/2018 10:42 02/18/2018 Venous) AM CDT 10:46 AM CDT Edd Moeller D.O. LAB BLOOD ADD-ON Performing Organization Address City/State/[facility] Code Phon e Number [facility]- [id number] [place] [address] [place] [facility] documented in this encounter Visit Diagnoses Diagnosis Anemia Posthemorrhagic Acute (Blood Loss Anemia) - Primary Gallstone With Common Bile Duct Stone documented in this encounter Additional Health Concerns Assessment Noted Time PHQ-9 Depression Total Score: 7 04/07/2017 9:39 AM CDT documented as of this encounter Care Teams Lift Mechanic Relationship Specialty Start Date End Date Blaire Bundy PBrittaneyACory. PCP - General 02/04/17 04/26/19 documented as of this encounter
--- OUTSIDE RECORDS SUMMARY | 2022-07-24 08:27 | XMS_ITS | Encounter Summary ---
:1985 Author Organization [facility] Address [address] [place] [address] Care Team Providers Name Role Phone Blaire Bundy P.A.-C. Primary Care Provider [phone] Reason for Visit Reason Comments Consult gallbladder Cholelithiasis Outpatient (Routine) - Closed Specialty Diagnoses / Procedures Referred By Contact Refer red To Contact General Surgery Diagnoses Calculus Of Bile Duct Without Cholangitis Or Cholecystitis With Obstruction PAR REVIEW Rubio Baker, [facility] Procedures DERRICK Zamora [address] [place] [address] Referral ID Status Reason Start Date Expiration Date Visits V isits Requested Authorized [id number] Closed Specialty 11/08/2017 05/07/2018 1 1 Services Required Encounter Details Date Type Department Care Team Description 11/11/2017 Comprehensive Visit Department of Adonis Baker M.D. [address] [place] [address] Pain Right Upper Quadrant (Primary Dx); General Surgery in [place] M.D. 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 [address] [address] Social History Tobacco Use Types [...] How often do you attend catholic or scientologist More than 4 time s [...] RETROGRADE CHOLANGIOPANCREATOGRAPHY; Surgeon: Rubio Baker M.D.; Location: [facility] OR ??? ESOPHAGOGASTRODUODENOSCOPY N/A 11/11/2017 Procedure: ESOPHAGOGASTRODUODENOSCOPY; Surgeon: Rubio Baker M.D.; Location: [facility] GI LAB ??? LAPAROSCOPIC APPENDECTOMY N/A 09/08/2017 Procedure: LAPAROSCOPIC APPENDECTOMY; Surgeon: Edd Moeller D.O.; Location: [facility] OR ??? OTHER CONVERTED SHX [...] Type and screen (11/11/2017 12:30 PM CDT) [facility] gist Method Time Signature ABO Group A 11/11/2017 [facility] 1:05 PM CDT [facility] [employer] [facility] Rh Type NEG 11/11/2017 [facility] 1:05 PM CDT [facility] [employer] [facility] Antibody Screen NEG 11/11/2017 [facility] 1:16 PM CDT [facility] [employer] [facility] Type & Screen 11/14/2017 [facility] Expiration 23:59 [facility] [employer] [facility] ELXM Eligible Y 11/11/2017 [facility] 1:16 PM CDT [facility] Specimen Anatomical Collection Method Collection Time Receive d Time (Source) Location / / Volume Laterality Blood (Blood, 11/11/2017 12:30 11/11/2017 Venous) PM CDT 12:41 PM CDT Seng Reyna M.D. LAB BLOOD BANK TEST ORDERABL ES Performing Organization Address City/State/ZIP Code Phon e Number [facility] [address] [place] [address] [facility] Lipase (11/11/2017 12:18 PM CDT) athologist Signature Lipase, S 42 13 - 60 U/L 11/11/2017 [facility] 1:01 PM CDT [facility] Specimen Anatomical Collection Method Collection Time Receive d Time (Source) Location / / Volume Laterality Blood (Blood, 11/11/2017 12:18 11/11/2017 Venous) PM CDT 12:40 PM CDT Seng Reyna M.D. LAB BLOOD ADD-ON Performing Organization Address City/State/ZIP Code Phon e Number [facility] [address] [place] [address] [facility] (ABNORMAL) CMP (Comprehensive Metabolic Panel) (11/11/2017 12:18 PM CDT) athologist Signature Potassium, S 5.4 (H) 3.6 - 5.2 11/11/2017 [facility] mmol/L 1:01 PM CDT [facility] Sodium, S 138 135 - 145 11/11/2017 [facility] mmol/L 1:01 PM CDT [facility] Chloride, S 103 98 - 107 11/11/2017 [facility] mmol/L 1:01 PM CDT [facility] Bicarbonate, S 23 22 - 29 11/11/2017 [facility] mmol/L 1:01 PM CDT [facility] Anion Gap 12 7 - 15 11/11/2017 [facility] 1:01 PM CDT [facility] BUN (Blood Urea 35 (H) 6 - 21 11/11/2017 [facility] Nitrogen), S mg/dL 1:01 PM CDT [facility] Creatinine 0.69 0.59 - 11/11/2017 [facility] 1.04 mg/dL 1:01 PM [facility] [employer] [facility] eGFR >90 >=60 11/11/2017 [facility] Non-Black/Afric mL/min/BSA 1:01 PM [facility] [employer] [facility] Comment: ----ADDITIONAL INFORMATION---- Estimated GFR calculated using the 2009 CKD_EPI creatinine equation. eGFR Black/ >90 >=60 mL/min/BSA 11/11/2017 1:[address] [facility] [employer] [facility] Comment: ----ADDITIONAL INFORMATION---- Estimated GFR calculated using the 2009 CKD_EPI creatinine equation. Calcium, Total, S 8.9 8.9 - 10.1 11/11/2017 1:01 PM [facility] mg/dL [facility] Glucose, S 153 (H) 70 - 140 mg/dL 11/11/2017 1:01 PM [facility] Protein, Total, S 6.0 (L) 6.3 - 7.9 g/dL 11/11/2017 1:01 P M [facility] Albumin, S 3.4 (L) 3.5 - 5.0 g/dL 11/11/2017 1:01 PM [facility] Aspartate 23 8 - 43 U/L 11/11/2017 1:01 PM [facility] Aminotransferase (AST), S [facility] Alkaline Phosphatase, S 124 (H) 37 - 98 U/L 11/11/2017 1:0 1 PM [facility] Alanine Aminotransferase 370 (H) 7 - 45 U/L 11/11/2017 1:0 1 PM [facility] (ALT), S [facility] Bilirubin, Total, S 0.3 <=1.2 mg/dL 11/11/2017 1:01 PM [facility] [employer] [facility] Specimen Anatomical Collection Method Collection Time Receive d Time (Source) Location / / Volume Laterality Blood (Blood, 11/11/2017 12:18 11/11/2017 Venous) PM CDT 12:40 PM CDT Seng Hartzheim M.D. LAB BLOOD ADD-ON Performing Organization Address City/State/ZIP Code Phon e Number [facility] [address] [place] [address] [facility] (ABNORMAL) CBC with Differential (11/11/2017 12:18 PM CDT) [facility] Method Time Signature Hemoglobin 9.2 (L) 11.6 - 11/11/2017 [facility] 15.0 g/dL 12:45 PM CDT [facility] Hematocrit 29.6 (L) 35.5 - 11/11/2017 [facility] 44.9 % 12:45 PM CDT [facility] Erythrocytes 3.39 (L) 3.92 - 11/11/2017 [facility] 5.13 12:45 PM CDT [facility] x10(12)/[facility] MCV 87.3 78.2 - 11/11/2017 [facility] 97.9 fL 12:45 PM CDT [facility] RBC Distrib Width 15.4 12.2 - 11/11/2017 [facility] 16.1 % 12:45 PM CDT [facility] Platelet Count 374 (H) 157 - 371 11/11/2017 [facility] x10(9)/L 12:45 PM CDT [facility] Leukocytes 15.1 (H) 3.4 - 9.6 11/11/2017 [facility] x10(9)/L 12:45 PM CDT [facility] Neutrophils 10.79 (H) 1.56 - 11/11/2017 [facility] 6.45 12:45 PM CDT [facility] x[facility](9[facility] Lymphocytes 3.57 (H) 0.95 - 11/11/2017 [facility] 3.07 12:45 PM CDT [facility] x[facility](9[facility] Monocytes 0.65 0.26 - 11/11/2017 [facility] 0.81 12:45 PM CDT [facility] x10(9[facility] Eosinophils 0.03 0.03 - 11/11/2017 [facility] 0.48 12:45 PM CDT [facility] x10(9[facility] Basophils 0.05 0.01 - 11/11/2017 [facility] 0.08 12:45 PM CDT [facility] x[facility](9[facility] Specimen Anatomical Collection Method Collection Time Receive d Time (Source) Location / / Volume Laterality Blood (Blood, 11/11/2017 12:18 11/11/2017 Venous) PM CDT 12:40 PM CDT Seng Reyna M.D. 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 PCP - General 02/04/17 documented as of this encounter
--- OUTSIDE RECORDS SUMMARY | 2022-07-24 08:27 | XMS_ITS | Encounter Summary ---
:1985 Author Organization [facility] Address [address] [place] [address] Care Team Providers Name Role Phone Blaire Bundy P.A.-C. Primary Care Provider [phone] Reason for Visit Reason Comments Communication [facility] Hospital follow up Encounter Details Date Type Department Care Team Description 11/15/2017 Clinical Department of Suellen Beasley on ([facility] Communication Family Medicine, R, R.N. Hospital follow up) [place] [address] Clinic, in [address] [address] [facility] [phone] [place], [place] (Work) [address] Social History Tobacco Use [...] How often do you attend restorationist or rastafarian More than 4 time s [...] to pay for the very basics like [employer] hat hard 07/09/2020 food, housing, medical care, [...] documented as of this encounter Care Teams Die Set Up Worker Relationship Specialty Start Date End Date Blaire Bundy P.A.-C. PCP - General 02/04/17 04/26/19 documented as of this encounter
--- OUTSIDE RECORDS SUMMARY | 2022-07-24 08:27 | XMS_ITS | Encounter Summary ---
:1985 Author Organization [facility] Address [address] [place] [address] Care Team Providers Name Role Phone Blaire [...] How often do you attend yazdanism or mormonism More than 4 time s [...] documented as of this encounter Care Teams Cco & President Relationship Specialty Start Date End Date Blaire Bundy P.A.-C. PCP - General 02/04/17 04/26/19 documented as of this encounter
--- OUTSIDE RECORDS SUMMARY | 2022-07-24 08:27 | XMS_ITS | Encounter Summary ---
:1985 Author Organization [facility] Address [address] [place] [address] Care Team Providers Name Role Phone Blaire Bundy P.A.-C. Primary Care Provider [phone] Encounter Details Date Type Department Care Team Description 02/09/2018 Clinical Communication Department of General Aline Dunbar Surgery in [place], L, L.P.[address] [phone] Social History Tobacco Use Types Packs/Day Years [...] How often do you attend buddhist or taoist More than 4 time s [...] documented as of this encounter Care Teams Testing Consultant Relationship Specialty Start Date End Date Blaire Bundy P.A.-C. PCP - General 02/04/17 04/26/19 documented as of this encounter
--- OUTSIDE RECORDS SUMMARY | 2022-07-24 08:27 | XMS_ITS | Encounter Summary ---
:1985 Author Organization [facility] Address [address] [place] [address] Care Team Providers Name Role Phone Blaire Bundy P.A.-C. Primary Care Provider [phone] Reason for Visit Auth/Cert Specialty Diagnoses / Procedures Referred By Contact Refer red To Contact Diagnoses Calculus Of Bile Duct Without Cholangitis Or Cholecystitis With Obstruction Procedures NE ERCP W BX ENDOSCOPIC RETROGRADE CHOLANGIOPANCREATOGRAPHY Referral ID Status Reason Start Date Expiration Date Visits Requ ested Visits Authorized [id number] 1 1 Encounter Details Date Type Department Care Team Description 11/11/2017 Anesthesia Event Department of Alberto Hampton APRN, CR FLAVIO Gastroenterology in Nancy Waters M.D. [address] [place] [phone] [address] [phone] Anesthesia Record Procedure Summary Procedure Name Responsible Anesthesia Start Anesthesia Stop Anesthesiologist Time Time ESOPHAGOGASTRODUODENOSCOPY Alberto Hampton APRN, 11/11/17 1634 11/11/17 1655 BUILDING ARCHITECT Events Date Time Event Comment 11/11/2017 1634 An Start Machine/Equipmen t Checked Infection Precautions Foll owed Procedure/Site Verified NPO Sta tus Verified Supine Standard ASA Mon itors Applied 1637 Turnover to Proceduralist 1653 Turnover to ANE Staff 1653 Proc Fin 1655 an stop data 1655 An End I completed my h andoff to the receiving staff during [facility] we 1. Identified the patient [...] by Abdomen; and dermabond; Antionette Barnes R.N. [facility]-Background DRSG PARKING CASHIER WND ADH NEONAT , Ryanu jonathan Automated [...] How often do you attend scientology or church More than 4 time s [...] Summary Date: 11/11/17 Room / Location: [facility] 14[address] / [facility] GI LAB Anesthesia Start: 1634 Anesthesia [...] as of this encounter Care Teams Yarn Dyer Relationship Specialty Start Date End Date Blaire Bundy P.A.-C. PCP - General 02/04/17 04/26/19 documented as of this encounter
--- OUTSIDE RECORDS SUMMARY | 2022-07-24 08:27 | XMS_ITS | Encounter Summary ---
:1985 Author Organization [facility] Address [address] [place] [address] Care Team Providers Name Role Phone Blaire Bundy P.A.-C. Primary Care Provider Encounter Details Date Type Department Care Team Description 11/12/2017 Hospital Encounter HX NO MAPPING Nichole Lerma [address] [place], [place] [phone] Social History Tobacco Use [...] How often do you attend hindu or restorationist More than 4 time s [...] documented as of this encounter Care Teams Slag Worker Relationship Specialty Start Date End Date Blaire Bundy P.A.-C. PCP - General 02/04/17 04/26/19 documented as of this encounter
--- OUTSIDE RECORDS SUMMARY | 2022-07-24 08:27 | XMS_ITS | Encounter Summary ---
:1985 Author Organization [facility] Address [address] [place] [id number] Care Team Providers Name Role Phone Blaire Bundy P.A.-C. Primary Care Provider Encounter Details Date Type Department Care Team Description 11/12/2017 - Hospital Encounter HX RST Cassidy Sandhu, 11/13/2017 Sera, M.S. [address] [place] [phone] (Wo rk) Social History Tobacco Use Types [...] How often do you attend religion or rastafarian More than 4 time s [...] CBC with Differential (11/13/2017 7:23 AM CDT) [facility] Method Time Signature Hemoglobin 8.2 (L) 12.0 - [facility] 15.5 G/DL LAB[facility]ATOR[facility] - [facility] Hematocrit 26.0 (L) 34.9 - [facility] 44.5 % LABORATORIES [facility] RBC Distrib 15.2 11.9 - [facility] Width 15.5 % LABORATORIES [facility] Platelet Count 229 150 - 450 [facility] X10(9)/L LABORATORIES [facility] Leukocytes 10.1 3.5 - [facility] 10.5 LABORATORIES - X10(9)/L [facility] Neutrophils 7.11 (H) 1.70 - [facility] 7.00 LABORATORIES - X10(9)/L [facility] Lymphocytes 2.38 0.90 - [facility] 2.90 LABORATORIES - X10(9)/L [facility] Monocytes 0.52 0.30 - [facility] 0.90 LABORATORIES - X10(9)/L [facility] Erythrocytes 2.93 (L) 3.90 - [facility] 5.03 LABORATORIES - X10(12)/L [facility] MCV 88.7 81.6 - [facility] 98.3 FL [facility]ATOR[facility] - [facility] Eosinophils 0.03 (L) 0.05 - [facility] 0.50 LABORATORIES - X10(9)/L [facility] Basophils <0.03 0.00 - [facility] 0.30 LABORATORIES - X10(9)/L [facility] Specimen Anatomical Collection Method Collection Time Receive d Time (Source) Location / / Volume Laterality 11/13/2017 7:23 AM 8 7:23 CDT AM CDT Historical Provider LAB BLOOD ADD-ON Performing Organization Address City/State/ZIP Code Phon e Number [facility]IES - [address] [place], [place] [address] [facility] (ABNORMAL) CBC with Differential (11/12/2017 7:48 PM CDT) [facility] gist Method Time Signature Hemoglobin 8.6 (L) 12.0 - [facility] 15.5 G/DL LAB[facility]ATOR[facility] - [facility] Hematocrit 26.2 (L) 34.9 - [facility] 44.5 % [facility] - [facility] Erythrocytes 3.04 (L) 3.90 - [facility] 5.03 LABORATORIES - X10(12)/L [facility] MCV 86.2 81.6 - [facility] 98.3 [place] [facility] - [facility] RBC Distrib 15.0 11.9 - [facility] Width 15.5 % [facility] - [facility] Platelet Count 210 150 - 450 [facility] X10(9)/L [facility] - [facility] Leukocytes 10.3 3.5 - [facility] 10.5 LABORATORIES - X10(9)/L [facility] Neutrophils 9.08 (H) 1.70 - [facility] 7.00 LABORATORIES - X10(9)/L [facility] Lymphocytes 1.03 0.90 - [facility] 2.90 LABORATORIES - X10(9)/L [facility] Monocytes 0.17 (L) 0.30 - [facility] 0.90 LABORATORIES - X10(9)/L [facility] Eosinophils <0.03 (L) 0.05 - [facility] 0.50 LABORATORIES - X10(9)/L [facility] Basophils <0.03 0.00 - [facility] 0.30 LABORATORIES - X10(9)/L [facility] Specimen Anatomical Collection Method Collection Time Receive d Time (Source) Location / / Volume Laterality 11/12/2017 7:48 PM 8 7:48 CDT PM CDT Venu Fernandez M.D., M.S. LAB BLOOD ADD-ON Performing Organization Address [facility] Phon e Number [facility]IES - [address] [place], [place] [address] [facility] ABORh, RBC (11/12/2017 11:55 AM CDT) P athologist Signature HXABO/RH BLOOD A NEG [facility] TYPE [facility] - [facility] Specimen (Source) Anatomical Collection Method Collection Time Re ceived Time Location / / Volume Laterality 11/12/2017 11:55 AM CDT Historical Provider LAB BLOOD BANK TEST ORDERABL ES Performing Organization Address [facility] Phon e Number [facility] - [address] [place], [place] [address] [facility] Antibody Screen, RBC (11/12/2017 11:55 AM CDT) Patholo gist Method Time Signature Antibody Negative [facility] Screen [facility]ORATORIES - [facility] Specimen (Source) Anatomical Collection Method Collection Time Re ceived Time Location / / Volume Laterality 11/12/2017 11:55 AM CDT Historical Provider LAB BLOOD BANK TEST ORDERABL ES Performing Organization Address [facility] Phon e Number [facility] - [address] [place], [place] [address] [facility] Calcium, Ionized (11/12/2017 11:42 AM CDT) P athologist Signature Calcium, 4.93 4.57 - [facility] Ionized, S 5.43 MG/DL [facility]ATOR[facility] - [facility] Comment: ? ADDITIONAL INFORMATIO N ? This test has been modified from the man mackr's ? instructions. Its performance characteri stics were ? determined by [facility] in a manner co nsistent with ? CLIA requirements. This test has not bee n cleared or ? approved by the U.S. Food and Drug Admin istration. ? pH 7.42 7.35 - 7.48 [facility] LABORA TORIES - [facility] Specimen Anatomical Collection Method Collection Time Receive d Time (Source) Location / / Volume Laterality 11/12/2017 11:42 11/12/2017 AM CDT 11:42 AM CDT Venu Fernandez M.D., M.S. LAB BLOOD NON ADD-ON Performing Organization Address City/[facility] Code Phon e Number [facility]IES - [address] [place] [address] [facility] (ABNORMAL) ALT (Alanine Aminotransferase) (11/12/2017 11:42 AM CDT) Component Value Ref Test Analysis [facility] gist Range Method Time Signature Alanine 212 (H) 7 - 45 [facility] Aminotransferase U/L LABORATORIES - (ALT), S [facility] Specimen Anatomical Collection Method Collection Time Receive d Time (Source) Location / / Volume Laterality 11/12/2017 11:42 11/12/2017 AM CDT 11:42 AM CDT Venu Fernandez M.D., M.S. LAB BLOOD ADD-ON Performing Organization Address City/[facility] Phon e Number [facility] - [address] [place] [address] [facility] BMP (Basic Metabolic Panel) (11/12/2017 11:42 AM CDT) Analysis Performed At [facility] logist Time Signature Sodium, P 141 135 - 145 [facility] MMOL/L [facility] - [facility] Potassium, P 4.0 3.6 - 5.2 [facility] MMOL/L [facility] - [facility] eGFR >60 >60 [facility] Non-Black/Afric ML/MIN/BSA LABORATORIES - [facility] eGFR >60 >60 [facility] Black/ ML/MIN/BSA LABORATORIES - [facility] BUN (Blood Urea 11 6 - 21 [facility] Nitrogen), S MG/DL [facility] - [facility] HX Bicarbonate, 23 22 - 29 [facility] P/S MMOL/L [facility]ATOR[facility] - [facility] Glucose, S 102 70 - 140 [facility] MG/DL [facility] - [facility] Anion Gap 12 7 - 15 [facility] - [facility] Chloride, S 106 98 - 107 [facility] MMOL/L [facility] - [facility] Creatinine 0.7 0.6 - 1.1 [facility] MG/DL LAB[facility] - [facility] eGFR >60 >60 [facility] Non-Black/Afric ML/MIN/BSA LABORATORIES - an [place] [facility] eGFR-Black/Afri >60 >60 [facility] can [place] ML/MIN/BSA LABORATORIES - [facility] Creatinine 0.7 0.6 - 1.1 [facility] MG/DL [facility] - [facility] Specimen Anatomical Collection Method Collection Time Receive d Time (Source) Location / / Volume Laterality 11/12/2017 11:42 11/12/2017 AM CDT 11:42 AM CDT Venu Fernandez M.D., M.S. LAB BLOOD ADD-ON Performing Organization Address City/[facility] Code Phon e Number [facility]IES - [address] (ABNORMAL) CBC without Differential (11/12/2017 11:42 AM CDT) Patholo gist Method Time Signature Hemoglobin 9.8 (L) 12.0 - [facility] 15.5 G/DL [facility] - [facility] Hematocrit 29.8 (L) 34.9 - [facility] 44.5 % LABORATORIES - [facility] Erythrocytes 3.42 (L) 3.90 - [facility] 5.03 LABORATORIES - X10(12)/L [facility] MCV 87.1 81.6 - [facility] 98.3 FL [facility] - [facility] RBC Distrib 15.0 11.9 - [facility] Width 15.5 % [facility] - [facility] Platelet Count 229 150 - 450 [facility] X10(9)/L [facility] Leukocytes 13.2 (H) 3.5 - [facility] 10.5 LABORATORIES - X10(9)/L [facility] Specimen Anatomical Collection Method Collection Time Receive d Time (Source) Location / / Volume Laterality 11/12/2017 11:42 11/12/2017 AM CDT 11:42 AM CDT Venu Fernandez M.D., M.S. LAB BLOOD ADD-ON Performing Organization Address City/State/ZIP Code Phon e Number [facility]IES - [address] [place] [address] [facility] Phosphorus Inorganic (11/12/2017 11:42 AM CDT) Analysis Performed At Patho logist Time Signature Phosphorus 2.6 2.5 - 4.5 [facility] (Inorganic), S MG/DL LABORATORIES [facility] Specimen Anatomical Collection Method Collection Time Receive d Time (Source) Location / / Volume Laterality 11/12/2017 11:42 11/12/2017 AM CDT 11:42 AM CDT Venu Fernandez M.D., M.S. LAB BLOOD ADD-ON Performing Organization Address City/[facility]/ZIP [facility] Phon e Number [facility]IES - [address] [place] [address] [facility] Bilirubin, Total (11/12/2017 11:42 AM CDT) P athologist Signature Bilirubin, 0.8 <=1.2 [facility] Total, S MG/DL [facility] Specimen Anatomical Collection Method Collection Time Receive d Time (Source) Location / / Volume Laterality 11/12/2017 11:42 11/12/2017 AM CDT 11:42 AM CDT Venu Fernandez M.D., M.S. LAB BLOOD ADD-ON Performing Organization Address City/[facility]/ZIP Code Phon e Number [facility]IES - [address] [place] [address] [facility] Magnesium (11/12/2017 11:42 AM CDT) P athologist Signature Magnesium, S 1.9 1.7 - 2.3 [facility] MG/DL [facility] Specimen Anatomical Collection Method Collection Time Receive d Time (Source) Location / / Volume Laterality 11/12/2017 11:42 11/12/2017 AM CDT 11:42 AM CDT Venu Fernandez M.D., M.S. LAB BLOOD ADD-ON Performing Organization Address City/State/ZIP Code Phon e Number [facility] - [address] [place] [address] [facility] Bilirubin, Direct (11/12/2017 11:42 AM CDT) P athologist Signature Bilirubin, 0.2 0.0 - 0.3 [facility] Direct, S MG/DL [facility] Specimen Anatomical Collection Method Collection Time Receive d Time (Source) Location / / Volume Laterality 11/12/2017 11:42 11/12/2017 AM CDT 11:42 AM CDT Venu Fernandez M.D., M.S. LAB BLOOD ADD-ON Performing Organization Address City/[facility]/ZIP Code Phon e Number [facility] - [address] AST (Aspartate Aminotransferase) (11/12/2017 11:42 AM CDT) P athologist Signature AST, Total, S 22 8 - 43 U/L [facility] Specimen Anatomical Collection Method Collection Time Receive d Time (Source) Location / / Volume Laterality 11/12/2017 11:42 11/12/2017 AM CDT 11:42 AM CDT Venu Fernandez M.D., M.S. LAB BLOOD ADD-ON Performing Organization Address City/[facility]/ZIP Code Phon e Number [facility] - [address] [place] [address] [facility] Alkaline Phosphatase (11/12/2017 11:42 AM CDT) athologist Signature Alkaline 92 37 - 98 [facility] Phosphatase, S U/L [facility] Specimen Anatomical Collection Method Collection Time Receive d Time (Source) Location / / Volume Laterality 11/12/2017 11:42 11/12/2017 AM CDT 11:42 AM CDT Venu Fernandez M.D., M.S. LAB BLOOD ADD-ON Performing Organization Address City/[facility]/ZIP Code Phon e Number [facility] - [address] documented in this encounter Visit Diagnoses Not on filedocumented in this encounter Additional Health Concerns Assessment Noted Time PHQ-9 Depression Total Score: 7 04/07/2017 9:39 AM CDT documented as of this encounter Care Teams Waiter/Waitress Club Relationship Specialty Start Date End Date Blaire Bundy P.A.-C. PCP - General 02/04/17 04/26/19 documented as of this encounter
--- OUTSIDE RECORDS SUMMARY | 2022-07-24 08:27 | XMS_ITS | Encounter Summary ---
:1985 Author Organization [facility] Address [address] [place] [address] Care Team Providers Name Role Phone Blaire Bundy P.A.-C. Primary Care Provider [phone] Encounter Details Date Type Department Care [...] How often do you attend methodist or religion More than 4 time s [...] documented as of this encounter Care Teams Ostomy Nurse Relationship Specialty Start Date End Date Blaire Bundy P.A.-C. PCP - General 02/04/17 04/26/19 documented as of this encounter
--- OUTSIDE RECORDS SUMMARY | 2022-07-24 08:27 | XMS_ITS | Encounter Summary ---
:1985 Author Organization [facility] Address [address] [place] [address] Care Team Providers Name Role Phone Blaire Bundy P.A.-C. Primary Care Provider [phone] Reason for Visit Reason Comments Other right big toe infection? Appointment Request (Routine) - Closed Specialty Diagnoses / Procedures Referred By Contact Refer red To Contact Family Medicine Referral ID Status Reason Start Date Expiration Date Visits Requ ested Visits Authorized [id number] Closed 11/22/2017 05/21/2018 1 1 Encounter Details Date Type Department Care Team Description 11/23/2017 Office Visit Department of Family Blaire Bundy Cell ulitis Toe Right Medicine, [facility], in [address] [phone] (Work) [phone] Social History Tobacco Use Types Packs/Day Years [...] How often do you attend methodist or taoism More than 4 time s [...] documented as of this encounter Care Teams Public Safety Officer Relationship Specialty Start Date End Date Blaire Bundy P.A.-C. PCP - General 02/04/17 04/26/19 documented as of this encounter
--- OUTSIDE RECORDS SUMMARY | 2022-07-24 08:27 | XMS_ITS | Encounter Summary ---
:1985 Author Organization [facility] Address [address] [place] [address] Care Team Providers Name Role Phone Blaire Bundy P.A.-C. Primary Care Provider [phone] Reason for Visit Outpatient (Routine) - Closed Specialty Diagnoses / Procedures Referred By Contact Refer red To Contact Diagnoses Gallstone With Common Bile Duct Stone Edd Moeller D.O. [address] [address] Referral ID Status Reason Start Date Expiration Date Visits Requ ested Visits Authorized [id number] Closed 02/09/2018 02/09/2019 1 1 Encounter Details Date Type Department Care Team Description 02/11/2018 Telemedicine Department of General Edd Moeller eamargaritathetic Medical Exam (Primary Dx); Surgery in Jason Rivera D.O. Gallstone With Common Bile Duct Stone [address] [place] [address] [place], [place] [phone] (Work) [phone] Social History Tobacco Use Types Packs/Day Years [...] How often do you attend congregation or mandaeism More than 4 time s per year 07/09/2020 services? Do you belong to any clubs or organizations No 04/19/2019 such as congregation groups, unions, fraJoota or athletic groups, or school groups? How [...] - 02/11/2018 10:00 AM CDT Surgical Nurse Acid Extractor Skin Alert Assessment: Complete this section only [...] lying flat? no Do you have any mandaeism or other objection to having a blood transfusion? no Teaching: Preoperative education was done with (x) patient (_) parent (_) other. _ It was confirmed the patient/family member had received the following preoperative education sheets:Checklist For Surgical Patients ([id number]),???Surgical Site Infections ([id number]), Speak Up: Antibiotics ([id number]), ???Smoke Free, Advice for patients and visitors?? ([id number]), ???Your Guide to Pain Management ([id number]), Managing Your Pain After Surgery ([id number]) with the ???Healing [employer]?? pamphlet ([id number]), and ???Appointments Required Before Your Surgery?? ([facility]4 [id number]). These were reviewed in detail. Additional Pamphlets also reviewed: (_)?? Parental Presence in the Operating Room?? ([facility]:Order Sets/Surgery/Home Instructions/Tonsillectomy Teaching Checklist/PE Tubes Teaching Sheet [...] 1st po with surgeon or physician assistant corporate secretary: (x) made (_)TBD (_)Audiology appointment (PE tubes), [...] documented as of this encounter Care Teams Zipper Trimmer Hand Relationship Specialty Start Date End Date Blaire Bundy P.A.-C. PCP - General 02/04/17 04/26/19 documented as of this encounter
--- OUTSIDE RECORDS SUMMARY | 2022-07-24 08:28 | XMS_ITS | Encounter Summary ---
:1985 Author Organization [facility] Address [address] [place] [address] Care Team Providers Name Role Phone Blaire Bundy P.A.-C. Primary Care Provider Reason for Visit Auth/Cert Specialty Diagnoses / Procedures Referred By Contact Refer red To Contact Diagnoses Appendicitis Acute Appendicitis Acute Procedures LAPAROSCOPIC APPENDECTOMY Referral ID Status Reason Start Date Expiration Date Visits Requ ested Visits Authorized [id number] 1 1 Encounter Details Date Type Department Care Team Description 09/08/2017 Anesthesia Event [facility] OR Nancy Smith M.D. [address] [facility] [address] [place] [address] [place], [place] [phone] (Wo rk) Anesthesia Record Procedure Summary [...] h andoff to the receiving staff during [facility] ch we 1. Identified the patient [...] D, Time: 161 (created BRENDA RIVERO APRN, SPED TEACHER via procedure documentation); Mask Ventilation: Easy mask; [...] 8 by Abdomen; and Antionette Barnes, R.N. [facility] [place] dermabond; FACUNDO SLURRY WORKER d, Karena g WND ADH NEONAT 2X3.75 [...] How often do you attend tenriism or methodist More than 4 time s [...] Anesthesia Postprocedure Evaluation - Dimitri Chase, JOSEFA, SPED TEACHER - 09/08/2017 5:50 PM CST Patient: Carol Cooley Procedure Summary Date: 09/08/17 Room / Location: [address] 1408 / [facility] OR Anesthesia Start: 160 Anesthesia Stop: [...] Post Op nausea/vomiting: none Hydration status: euvolemic OWS DESKTOP ENGINEER Anesthesia Procedure Notes - Dimitri Chase [...] Procedure outcome: successful Airway event: no complications OWS DESKTOP ENGINEER Anesthesia Preprocedure Evaluation - Nancy Smith [...] patient / legal guardian, or through an medical interpreter; patient evaluated and approved for anesthesia / sedation. The use of blood products not discussed Discussed risk of potential decreased hormonal contraceptive efficacy for up to one week after anesthesia due to medication interactions. OWS DESKTOP ENGINEER documented in this encounter Plan of Treatment Not on filedocumented as of this encounter Procedures Procedure Name Priority Date/Time Associated Comments Diagnosis LDA ANE ENDOTRACHEAL Routine 09/08/2017 4:27 PM R esults for this AIRWAY WINDOWS DESKTOP ENGINEER procedure are i n the results section. documented in this encounter Results LDA ANE ENDOTRACHEAL AIRWAY (09/08/2017 4:27 PM WINDOWS DESKTOP ENGINEER) Narrative Dimitri Chase APRN, CRNA - 09/08/19 18 4:27 PM WINDOWS DESKTOP ENGINEER Dimitri Chase APRN, CRNA ? 09/08/2017 [...] grade 2A ETT location: oral VL device: [employer] CMAC blade size: D - adult Adult [...] Site dexamethasone injection Given 09/08/2017 4:07 PM WINDOWS DESKTOP ENGINEER 8 mg (for_DECADRON) As needed, Starting on Wed09/08/17 at 1607, Anesthesia Intra-op HYDROmorphone injection (for_DILAUDID) Given 09/08/2017 4:14 PM WINDOWS DESKTOP ENGINEER 1 mg As needed, moderate pain or score 4-6 of 10, Starting on Wed09/08/17 at 1614, Anesthesia Intra-op ketamine injection (for_KETALAR) Given 09/08/2017 4:06 PM WINDOWS DESKTOP ENGINEER 50 mg As needed, Starting on Wed09/08/17 at 1606, Anesthesia Intra-op ketorolac injection (for_TORADOL) Given 09/08/2017 5:25 PM WINDOWS DESKTOP ENGINEER 30 mg As needed, moderate pain or score 4-6 of 10, Starting on Wed09/08/17 at 1725, Anesthesia Intra-op lactated ringers New Bag 09/08/2017 4:36 PM WINDOWS DESKTOP ENGINEER intravenous, Continuous Infusion: Per Instructions PRN, Starting on Wed09/08/17 at 1636, Anesthesia Intra-op New Bag 09/08/2017 4:06 PM WINDOWS DESKTOP ENGINEER lidocaine (PF) (cardiac) injection Given 09/08/2017 4:11 PM WINDOWS DESKTOP ENGINEER 150 mg intravenous, As needed, Starting on Wed09/08/17 at 1611, Anesthesia Intra-op midazolam (PF) injection (for_VERSED) Given 09/08/2017 4:06 PM WINDOWS DESKTOP ENGINEER 2 mg intravenous, As needed, Starting on Wed09/08/17 at 1606, Anesthesia Intra-op ondansetron (PF) injection (for_ZOFRAN) Given 09/08/2017 5:11 PM WINDOWS DESKTOP ENGINEER 4 mg intravenous, As needed, nausea, vomiting, Starting on Wed09/08/17 at 1711, Anesthesia Intra-op propofol injection (for_DIPRIVAN) Given 09/08/2017 4:11 PM WINDOWS DESKTOP ENGINEER 300 mg intravenous, As needed, Starting on Wed09/08/17 at 1611, Anesthesia Intra-op rocuronium injection (for_ZEMURON) Given 09/08/2017 4:07 PM WINDOWS DESKTOP ENGINEER 80 mg intravenous, As needed, Starting on Wed09/08/17 at 1607, Anesthesia Intra-op sugammadex injection (for_BRIDION) Given 09/08/2017 5:17 PM WINDOWS DESKTOP ENGINEER 290 mg As needed, Starting on Wed09/08/17 at 1717, Anesthesia Intra-op documented in this encounter Additional Health Concerns Assessment Noted Time PHQ-9 Depression Total Score: 7 04/07/2017 9:39 AM CDT documented as of this encounter Care Teams Reel Slitter Relationship Specialty Start Date End Date Blaire Bundy P.A.-C. PCP - General 02/04/17 04/26/19 documented as of this encounter
--- OUTSIDE RECORDS SUMMARY | 2022-07-24 08:28 | XMS_ITS | Encounter Summary ---
:1985 Author Organization [facility] Address [address] [place] [address] Care Team Providers Name Role Phone Blaire Bundy P.A.-C. Primary Care Provider Reason for Visit Reason Onset Date Comments Post Hospital Follow-up 09/09/2017 [place] 09/09/17 Encounter Details Date Type Department Care Team Description 09/09/2017 Clinical Communication Department of [facility] Medicine, Barbara Barrett R.N. Follow-up ([place] [address] 09/09/17) Clinic, in [address] [address] [facility] [phone] [place], [place] (Work) [phone] Social History Tobacco [...] How often do you attend restorationist or anabaptism More than 4 time s [...] feedback: Post hospital near miss assessment: none D APPLICATION ENGINEER Telephone Encounter - Barbara Bang R.N. - 09/09/2017 2:07 PM FIELD APPLICATION ENGINEER Discharge date 09/09/17 at 1230. Reason for hospitalization Admission PRINCIPAL DIAGNOSIS Appendicitis Acute. Follow up scheduled for 09/20/17 @ [address] Reyna (surgical f/u). D APPLICATION ENGINEER documented in this encounter Plan of Treatment Not on filedocumented as of this encounter Visit Diagnoses Not on filedocumented in this encounter Additional Health Concerns Assessment Noted Time PHQ-9 Depression Total Score: 7 04/07/2017 9:39 AM CDT documented as of this encounter Care Teams Electroplater Relationship Specialty Start Date End Date Blaire Bundy P.A.-C. PCP - General 02/04/17 04/26/19 documented as of this encounter
--- OUTSIDE RECORDS SUMMARY | 2022-07-24 08:28 | XMS_ITS | Encounter Summary ---
:1985 Author Organization [facility] Address [address] [place] [address] Care Team Providers Name Role Phone Blaire Bundy P.A.-C. 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 CHOLANGIOPANCREATOGRAPHY [place], [place] [address] [address] [place], [place] [phone] [address] Social History Tobacco Use Types Packs/Day [...] How often do you attend yarsanism or alevism More than 4 time s [...] Used ??? Alcohol use No Lives in [employer], working at the [employer] there. Has two sons, the youngest [...] - 11/08/2017 3:08 PM CDTAssociated Order(s): ERCP [facility] [place] [facility] Patient Name: Carol Cooley Procedure Date: [...] 1 : Perianal for CRE Swab Perianal [facility] SURVEILLANCE PCR Rubio Baker M.D. 11/08/2017 1539 Drains None Estimated Blood Loss No blood loss documented. Implants * No implants in log * Rubio Baker M.D. documented in this encounter Plan of Treatment Scheduled Referrals Name Type Priority Associated Diagnoses Order [facility] General Surgery - Outpatient Referral Routine Calculus [...] Duct Without Cholangitis Or Cholecystitis With Obstruction [facility] SURVEILLANCE PCR Routine 11/08/2017 Calculus [...] Surveillance PCR Perianal (11/08/2017 3:39 PM CDT) [facility] gist Method Time Signature Specimen RECTAL SWAB 11/09/2017 [facility] source 1:40 PM CDT [facility] KPC PCR Negative Not 11/09/2017 [facility] Applicable 1:40 PM CDT [facility] NDM PCR Negative Not 11/09/2017 [facility] Applicable 1:40 PM CDT [facility] Comment: ----ADDITIONAL INFORMATION---- This test was developed and its performa nce characteristics determined by [facility] in a manner consistent with CLIA requirements. This test has not been cleared or approved by the [place] d and Drug Administration. Specimen (Source) Anatomical Collection Method Collection Time Re ceived Time Location / / Volume Laterality Swab (Perianal) 11/08/2017 3:39 PM CDT Rubio Baker M.D. LAB MICROBIOLOGY - GENERAL O RDERABLES Performing Organization Address City/State/ZIP Code Phon e Number [facility] - [address] [place] [address] 05 [facility] ERCP (11/08/2017 3:08 PM CDT) Specimen (Source) Anatomical Location Collection Method / Collectio n Time Received Time / Laterality Volume Narrative This result has an attachment that is no t available. Procedure Note Rubio Baker M.D. - 11/08/2017 3:0 8 PM CDT [facility] [place] [facility] Patient Name: Carol Cooley Procedure Date: [...] Given 11/08/2017 3:35 PM CDT 1 appli cation. (for_HURRICAINE/TOPEX) As needed, Starting on Wed11/08/17 at [...] as of this encounter Care Teams Car Starter Relationship Specialty Start Date End Date Blaire Bundy P.A.-C. PCP - General 02/04/17 04/26/19 documented as of this encounter
--- OUTSIDE RECORDS SUMMARY | 2022-07-24 08:28 | XMS_ITS | Encounter Summary ---
:1985 Author Organization [facility] Address [address] [place] [address] Care Team Providers Name Role Phone Blaire Bundy P.A.-C. Primary Care Provider [phone] Reason for Visit Reason Comments Communication [facility] hospital follow-up Encounter Details Date Type Department Care Team Description 09/10/2017 Clinical Department of Suellen Beasley on ([facility] Internal R, R.N. hospital follow-up) Medicine in [address] [place] [address], [address] [place] [address] [place] [phone] [address] (Work) [phone] Social History Tobacco Use Types Packs/Day Years [...] How often do you attend lutheran or church More than 4 time s [...] to pay for the very basics like [employer] hat hard 07/09/2020 food, housing, medical care, [...] 8:02 AM CST See previous note, duplicate. OR LPN Telephone Encounter - Suellen Beasley R.N. - 09/10/2017 7:40 AM CST Discharge date 09/09/17 at 1230. Reason for hospitalization Appendicitis acute. Follow up scheduled for 09/20/17. OR LPN documented in this encounter Plan of Treatment Not on filedocumented as of this encounter Visit Diagnoses Not on filedocumented in this encounter Additional Health Concerns Assessment Noted Time PHQ-9 Depression Total Score: 7 04/07/2017 9:39 AM CDT documented as of this encounter Care Teams Process Improvement Engineer Relationship Specialty Start Date End Date Blaire Bundy P.A.-C. PCP - General 02/04/17 04/26/19 documented as of this encounter
--- OUTSIDE RECORDS SUMMARY | 2022-07-24 08:28 | XMS_ITS | Encounter Summary ---
:1985 Author Organization [facility] Address [address] [place] [address] Care Team Providers Name Role Phone Blaire Bundy P.A.-C. Primary Care Provider [phone] Reason for Visit Reason Comments Shortness of Breath pt was here Wed. and was dx with pleurisy and is not getting better. c/o SOB, heartburn, nausea and has white in her stool Encounter Details Date Type Department Care Team Description 11/07/2017 Emergency [place] [facility] Dimitri Car, Dil ated Common Bile Duct (Primary Dx); Department M.D. 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 - 11/07/2017 8:51 PM CDT YOU SHOULD NOT HAVE ANYTHING TO EAT OR DRINK AFTER 12 MIDNIGHT. YOU DO NEED A ARMED CUSTOM PROTECTION OFFICER AFTER THE ERCP PLANNED FOR TOMORROW AFTERNOON TENTATIVELY. AttachmentsThe following attachments cannot be sent through Care Everywhere. About Your ERCP, (Endoscopic Retrograde Cholangiopancreatography) (Yi) documented in this encounter Medications at Time [...] with hyperactivity disorder presents ambulatory to the [place] [facility] with her friend via private [...] a cholecystectomy done. 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 Final [...] athologist Signature HCG, <0.5 IU/L 11/07/2017 [facility] Quantitative, 7:25 PM CDT [facility] [place] [facility] Comment: Biotin has been identified by [...] Code Phon e Number [facility] [address] [place] [address] [facility] Lactate (11/07/2017 6:48 PM CDT) P athologist Signature Lactate, P 0.8 0.6 - 2.3 11/07/2017 [facility] mmol/L 7:08 PM CDT [facility] Specimen Anatomical Collection Method Collection Time Receive d Time (Source) Location / / Volume Laterality Blood (Blood, 11/07/2017 6:48 PM 11/08/19 18 6:51 Venous) CDT PM CDT Dimitri Car M.D. LAB BLOOD NON ADD-ON Performing Organization Address City/State/ZIP Code Phon e Number [facility] [address] [facility] [place] [address] [facility] (ABNORMAL) Hepatic Function Panel (11/07/2017 6:48 PM CDT) [facility] Method Time Signature Bilirubin, Total, S 2.0 (H) <=1.2 11/07/2017 [facility] mg/dL 7:14 PM CDT [facility] Bilirubin, Direct, S 1.5 (H) 0.0 - 0.3 11/07/2017 [facility] mg/dL 7:14 PM CDT [facility] Aspartate 775 (H) 8 - 43 11/07/2017 [facility] Aminotransferase U/L 7:26 PM T [facility] Alanine 1877 (H) 7 - 45 11/07/2017 [facility] Aminotransferase U/L 7:26 PM T [facility] Alkaline 275 (H) 37 - 98 11/07/2017 [facility] Phosphatase, S U/L 7:14 PM CDT [facility] Albumin, S 4.0 3.5 - 5.0 11/07/2017 [facility] g/dL 7:14 PM CDT [facility] Protein, Total, S 7.1 6.3 - 7.9 11/07/2017 [facility] g/dL 7:14 PM T [facility] Specimen Anatomical Collection Method Collection Time Receive d Time (Source) Location / / Volume Laterality Blood (Blood, 11/07/2017 6:48 PM 11/08/19 18 6:51 Venous) CDT PM CDT Dimitri Car M.D. LAB BLOOD ADD-ON Performing Organization Address City/State/ZIP Code Phon e Number [facility] [address] [place], [place] [address] [address] [facility] BMP (Basic Metabolic Panel) (11/07/2017 6:48 PM CDT) athologist Signature Potassium, P 4.3 3.6 - 5.2 11/07/2017 [facility] mmol/L 7:11 PM T [facility] Sodium, P 139 135 - 145 11/07/2017 [facility] mmol/L 7:11 PM [facility] Chloride, P 100 98 - 107 11/07/2017 [facility] mmol/L 7:11 PM [facility] Bicarbonate, P 25 22 - 29 11/07/2017 [facility] mmol/L 7:11 PM [facility] Anion Gap, P 14 7 - 15 11/07/2017 [facility] 7:11 PM [facility] BUN (Blood Urea 16 6 - 21 11/07/2017 [facility] Nitrogen), P mg/dL 7:11 PM [facility] Creatinine 0.76 0.59 - 11/07/2017 [facility] 1.04 mg/dL 7:11 PM [facility] eGFR-Black/Afri >90 >=60 11/07/2017 [facility] can Dutch mL/min/BSA 7:11 PM [facility] Comment: ----ADDITIONAL INFORMATION---- Estimated GFR calculated using the 2009 CKD_EPI creatinine equation. eGFR Non-Black/ >90 >=60 mL/min/BSA 11/07/2017 7:11 PM [facility] Dutch [facility] Comment: ----ADDITIONAL INFORMATION---- Estimated GFR calculated using the 2009 CKD_EPI creatinine equation. Calcium, Total, P 9.5 8.9 - 10.1 mg/dL 11/07/2017 7 :11 PM T [facility] Glucose, P 129 70 - 140 mg/dL 11/07/2017 7:11 PM CDT [facility] Specimen Anatomical Collection Method Collection Time Receive d Time (Source) Location / / Volume Laterality Blood (Blood, 11/07/2017 6:48 PM 11/08/19 6:51 Venous) CDT PM CDT Dimitri Car M.D. LAB BLOOD ADD-ON Performing Organization Address City/State/ZIP Code Phon e Number [facility] [address] [place] [address] [facility] Lipase (11/07/2017 6:48 PM CDT) athologist Signature Lipase, P 45 13 - 60 U/L 11/07/2017 [facility] 7:05 PM CDT [facility] Specimen Anatomical Collection Method Collection Time Receive d Time (Source) Location / / Volume Laterality Blood 11/07/2017 6:48 PM 8 6:51 CDT PM CDT Dimitri Car M.D. LAB BLOOD ADD-ON Performing Organization Address City/State/ZIP Code Phon e Number [facility] [place] [address] [facility] CBC with Differential (11/07/2017 6:48 PM CDT) athologist Signature Hemoglobin 13.5 11.6 - 11/07/2017 [facility] 15.0 g/dL 6:54 PM CDT [facility] Hematocrit 42.1 35.5 - 11/07/2017 [facility] 44.9 % 6:54 PM CDT [facility] Erythrocytes 4.97 3.92 - 11/07/2017 [facility] 5.13 6:54 PM CDT HEALTH x10(12)/L SYSTEM- [facility] MCV 84.7 78.2 - 11/07/2017 [facility] 97.9 fL 6:54 PM CDT [facility] RBC Distrib Width 14.9 12.2 - 11/07/2017 [facility] 16.1 % 6:54 PM CDT [facility] Platelet Count 294 157 - 371 11/07/2017 [facility] x10(9)/L 6:54 PM CDT [facility] Leukocytes 7.6 3.4 - 9.6 11/07/2017 [facility] x10(9)/L 6:54 PM CDT [facility] Neutrophils 5.64 1.56 - 11/07/2017 [facility] 6.45 6:54 PM CDT HEALTH x10(9)/L SYSTEM- [facility] Lymphocytes 1.33 0.95 - 11/07/2017 [facility] 3.07 6:54 PM CDT HEALTH x10(9)/L SYSTEM- [facility] Monocytes 0.50 0.26 - 11/07/2017 [facility] 0.81 6:54 PM CDT HEALTH x10(9)/L SYSTEM- [facility] Eosinophils 0.04 0.03 - 11/07/2017 [facility] 0.48 6:54 PM CDT HEALTH x10(9)/L SYSTEM- [facility] Basophils 0.04 0.01 - 11/07/2017 [facility] 0.08 6:54 PM CDT [facility]ALTH x10(9)/L SYSTEM [facility] Specimen Anatomical Collection Method Collection Time Receive d Time (Source) Location / / Volume Laterality Blood (Blood, 11/07/2017 6:48 PM 11/08/19 18 6:51 Venous) CDT PM CDT Dimitri Car M.D. LAB BLOOD ADD-ON Performing Organization Address City/State/ZIP Code Phon e Number [facility] [address] [place] [place] [address] [facility] documented in this encounter Visit Diagnoses [...] documented as of this encounter Care Teams Reconciliation Analyst Relationship Specialty Start Date End Date Blaire Bundy P.A.-C. PCP - General 02/04/17 04/26/19 documented as of this encounter
--- OUTSIDE RECORDS SUMMARY | 2022-07-24 08:28 | XMS_ITS | Encounter Summary ---
:1985 Author Organization [facility] Address [address] [place] [address] Care Team Providers Name Role Phone Blaire Bundy P.A.-C. 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 Tenderness [address] [phone] Social History Tobacco Use Types Packs/Day Years [...] How often do you attend rastafarian or taoism More than 4 time s [...] documented as of this encounter Care Teams An/Ssn 2 4 Operator Relationship Specialty Start Date End Date Blaire Bundy P.A.-C. PCP - General 02/04/17 04/26/19 documented as of this encounter
--- OUTSIDE RECORDS SUMMARY | 2022-07-24 08:28 | XMS_ITS | Encounter Summary ---
:1985 Author Organization [facility] Address [address] [place] [address] Care Team Providers Name Role Phone Blaire Bundy P.A.-C. Primary Care Provider [phone] Reason for Visit Reason Comments Chest Pain Pain With Breathing Encounter Details Date Type Department Care Team Description 11/04/2017 Emergency [place] [facility] Berny Garcia M.D. [address] [place] [address] Pleurisy (Primary Dx) Department Erlin Garcia M.D. 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 Pleurisy (Mosotho)documented in this encounter Medications at Time of [...] family history of her father having an AL in his 50s she is presenting now [...] Pleurisy Berny Garcia M.D. 11/06/17 0706 Leonora Meadosw R.N. - 11/04/2017 5:06 PM CDT Chest [...] Troponin T, S <0.01 <0.01 ng/mL 11/04/2017 [facility] 6:03 PM CDT [facility] Comment: Biotin has been identified by the doug vegar as a potential interfering substance. ??Higher concentr ations of biotin may be found in multivitamins, hair/nail supple ments, and workout supplements. ??If the result does not ma [facility] clinical observations, repeat testing after patient [...] Phon e Number [facility] [address] [place] [address] [place] [facility] (ABNORMAL) D-Dimer (11/04/2017 5:43 PM CDT) athologist Signature D-Dimer, P 2.06 (H) <0.50 11/04/2017 [facility] mcg/mL FEU 5:59 PM CDT [facility] Comment: ----ADDITIONAL INFORMATION---- Results of [...] Phon e Number [facility] [address] [place] [address] [place] [facility] (ABNORMAL) CMP (Comprehensive Metabolic Panel) (11/04/2017 5:43 PM CDT) athologist Signature Potassium, P 4.3 3.6 - 5.2 11/04/2017 [facility] mmol/L 6:03 PM [facility] Sodium, P 139 135 - 145 11/04/2017 [facility] mmol/L 6:03 PM [facility] Chloride, P 100 98 - 107 11/04/2017 [facility] mmol/L 6:03 PM [facility] Bicarbonate, P 26 22 - 29 11/04/2017 [facility] mmol/L 6:03 PM [facility] Anion Gap, P 13 7 - 15 11/04/2017 [facility] 6:03 PM [facility] BUN (Blood Urea 11 6 - 21 11/04/2017 [facility] Nitrogen), P mg/dL 6:03 PM [facility] Creatinine 0.69 0.59 - 11/04/2017 [facility] 1.04 mg/dL 6:03 PM [facility] eGFR-Black/Afri >90 >=60 11/04/2017 [facility] can Chinese mL/min/BSA 6:03 PM [facility] Comment: ----ADDITIONAL INFORMATION---- Estimated GFR calculated using the 2009 CKD_EPI creatinine equation. eGFR Non-Black/ >90 >=60 mL/min/BSA 11/04/2017 6:03 PM [facility] Chinese [facility] Comment: ----ADDITIONAL INFORMATION---- Estimated GFR calculated using the 2009 CKD_EPI creatinine equation. Calcium, Total, P 9.6 8.9 - 10.1 11/04/2017 6:03 PM [facility] mg/dL [facility] Glucose, P 98 70 - 140 mg/dL 11/04/2017 6:03 PM [facility] Protein, Total, P 7.5 6.3 - 7.9 g/dL 11/04/2017 6:03 P M [facility] Albumin, P 3.9 3.5 - 5.0 g/dL 11/04/2017 6:03 PM [facility] Aspartate 1084 (H) 8 - 43 U/L 11/04/2017 6:23 PM [facility] ERI C Aminotransferase (AST), P [facility] Alkaline Phosphatase, P 167 (H) 37 - 98 U/L 11/04/2017 6:0 3 PM [facility] Alanine Aminotransferase 1350 (H) 7 - 45 U/L 11/04/2017 6:2 3 PM [facility] (ALT), [facility] Bilirubin, Total, P 2.8 (H) <=1.2 mg/dL 11/04/2017 6:03 PM [facility] Specimen Anatomical Collection Method Collection Time Receive d Time (Source) Location / / Volume Laterality Blood (Blood, 11/04/2017 5:43 PM 11/05/19 18 5:43 Venous) CDT CDT Berny Garcia M.D. LAB BLOOD ADD-ON Performing Organization Address City/State/ZIP Code Phon e Number [facility] [address] [facility] [place] [address] [place] [facility] (ABNORMAL) CBC with Differential (11/04/2017 5:43 PM CDT) [facility] Method Time Signature Hemoglobin 13.5 11.6 - 11/04/2017 [facility] 15.0 g/dL 5:46 PM [facility] Hematocrit 41.5 35.5 - 11/04/2017 [facility] 44.9 % 5:46 PM [facility] Erythrocytes 5.08 3.92 - 11/04/2017 [facility] 5.13 5:46 PM [facility] x10(12)/L [facility] MCV 81.7 78.2 - 11/04/2017 [facility] 97.9 fL 5:46 PM CDT [facility] RBC Distrib Width 13.9 12.2 - 11/04/2017 [facility] 16.1 % 5:46 PM CDT [facility] Platelet Count 278 157 - 371 11/04/2017 [facility] x10(9)/L 5:46 PM CDT [facility] Leukocytes 4.8 3.4 - 9.6 11/04/2017 [facility] x10(9)/L 5:46 PM CDT [facility] Neutrophils 3.37 1.56 - 11/04/2017 [facility] 6.45 5:46 PM CDT [facility] Lymphocytes 1.11 0.95 - 11/04/2017 [facility] 3.07 5:46 PM CDT [facility](9[facility] Monocytes 0.23 (L) 0.26 - 11/04/2017 [facility] 0.81 5:46 PM CDT [facility]ALTH x10(9)/L [facility] Eosinophils 0.07 0.03 - 11/04/2017 [facility] 0.48 5:46 PM CDT [facility](9[facility] Basophils 0.03 0.01 - 11/04/2017 [facility] 0.08 5:46 PM CDT [facility]ALTH x10(9)/L [facility] Specimen Anatomical Collection Method Collection Time Receive d Time (Source) Location / / Volume Laterality Blood (Blood, 11/04/2017 5:43 PM 11/05/19 18 5:43 Venous) CDT PM CDT Berny Garcia M.D. LAB BLOOD ADD-ON Performing Organization Address City/State/ZIP Code Phon e Number [facility] [address] [facility] [place] [address] [facility] DX Chest AP or PA [...] Signature Ventricular Rate 76 BPM MUSE ECG/Min NM Interval 158 ms MUSE QRSD Interval 82 ms MUSE QT Interval 358 ms MUSE QTC Interval 402 ms MUSE P [place] 47 degrees MUSE R [place] 38 degrees MUSE T Wave [place] 33 degrees MUSE Specimen Anatomical Collection Method [...] as of this encounter Care Teams Corporate Human Resources Manager Relationship Specialty Start Date End Date Blaire Bundy P.A.-C. PCP - General 02/04/17 04/26/19 documented as of this encounter
--- OUTSIDE RECORDS SUMMARY | 2022-07-24 08:28 | XMS_ITS | Encounter Summary ---
:1985 Author Organization [facility] Address [address] [place] [address] Care Team Providers Name Role Phone Blaire Bundy P.A.-C. Primary Care Provider Encounter Details Date Type Department Care Team Description 09/09/2017 Orders Only Department of General Lydia Crowley, Surgery in [address] [address] [place] [address] [facility] [phone] Social History Tobacco Use Types Packs/Day Years [...] How often do you attend buddhism or sikh More than 4 time s [...] documented as of this encounter Care Teams Armoring Machine Operator Relationship Specialty Start Date End Date Blaire Bundy P.A.-C. PCP - General 02/04/17 04/26/19 documented as of this encounter
--- OUTSIDE RECORDS SUMMARY | 2022-07-24 08:28 | XMS_ITS | Encounter Summary ---
:1985 Author Organization [facility] Address [address] [place] [address] Care Team Providers Name Role Phone Blaire Bundy P.A.-C. 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 PAR REVIEW Rubio Baker [facility] [place] [facility] Procedures [place] [address] [address] Referral ID Status Reason Start Date Expiration Date Visits V isits Requested Authorized [id number] Closed Specialty 11/08/2017 05/07/2018 1 1 Services Required Reason for Visit Auth/Cert Specialty Diagnoses / Procedures Referred By Contact Refer red To Contact Diagnoses 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 Without Cholangitis NE[place]IAH RIVERA [address] [place] [address] [place] Rivera Obstruction [phone] Social History Tobacco Use Types Packs/Day [...] How often do you attend congregational or advent More than 4 time s [...] Everywhere. About Your ERCP, (Endoscopic Retrograde Cholangiopancreatography) (Setswana) documented in this encounter Medications at Time [...] Used ??? Alcohol use No Lives in [place], working at the [employer] there. Has two sons, the [...] - 11/08/2017 3:08 PM CDTAssociated Order(s): ERCP [facility] Patient Name: Carol Cooley Procedure Date: [...] anesthesia, benzocaine spray and indomethacin 100 mg [place] Complications: No immediate complications. Estimated blood loss: [...] 1 : Perianal for CRE Swab Perianal [facility] SURVEILLANCE PCR Rubio Baker M.D. 11/08/2017 1539 Drains None Estimated Blood Loss No blood loss documented. Implants * No implants in log * Rubio Baker M.D. documented in this encounter Plan of Treatment Scheduled Referrals Name Type Priority Associated Diagnoses Order S [facility] General Surgery - Outpatient Referral Routine Calculus [...] Duct Without Cholangitis Or Cholecystitis With Obstruction [facility] SURVEILLANCE PCR [...] Surveillance PCR Perianal (11/08/2017 3:39 PM CDT) [facility] gist Method Time Signature Specimen RECTAL SWAB 11/09/2017 [facility] source 1:40 PM CDT [facility] KPC PCR Negative Not 11/09/2017 [facility] Applicable 1:40 PM CDT [facility] NDM PCR Negative Not 11/09/2017 [facility] Applicable 1:40 PM CDT [facility] Comment: ----ADDITIONAL INFORMATION---- This test was developed and its performa nce characteristics determined by [facility] in a manner consistent with CLIA requirements. This test has not been cleared or approved by the [place] d and Drug Administration. Specimen (Source) Anatomical Collection Method Collection Time Re ceived Time Location / / Volume Laterality Swab (Perianal) 11/08/2017 3:39 PM CDT Rubio Baker M.D. LAB MICROBIOLOGY - GENERAL O RDERABLES Performing Organization Address City/State/ZIP Code Phon e Number [facility] - [address] [id number] [facility] ERCP (11/08/2017 3:08 PM CDT) Specimen (Source) Anatomical Location Collection Method / Collectio n Time Received Time / Laterality Volume Narrative This result has an attachment that is no t available. Procedure Note Rubio Baker M.D. - 11/08/2017 3:0 8 PM CDT [facility] Patient Name: Carol Cooley Procedure Date: [...] benzocaine spray an d indomethacin 100 mg [place] Complications: No immediate complication s. Estimated blood [...] documented as of this encounter Care Teams Map Maker Relationship Specialty Start Date End Date Blaire Bundy P.A.-C. PCP - General 02/04/17 04/26/19 documented as of this encounter
--- OUTSIDE RECORDS SUMMARY | 2022-07-24 08:28 | XMS_ITS | Encounter Summary ---
:1985 Author Organization [facility] Address [address] [place] [address] Care Team Providers Name Role Phone Blaire Bundy P.A.-C. Primary Care Provider Reason for Visit Reason Comments Post-op po lap appy 09-08-17 Outpatient (Routine) - Closed Specialty Diagnoses / Procedures Referred By Contact Refer red To Contact General Surgery Diagnoses Appendicitis Acute Par Review Seng Reyna M.D. [facility] Procedures GNS POST OP [address] [place] [address] Referral ID Status Reason Start Date Expiration Date Visits Requ ested Visits Authorized [id number] Closed 09/09/2017 03/08/2018 1 1 Encounter Details Date Type Department Care Team Description 09/17/2017 Office Visit Department of General Seng Reyna M. D. Appendectomy Laparoscopic Status Post (Primary Dx); Surgery in [facility] Hermelinda Hansen, Vianney-Marlyn., P.A. [address] [place] [phone] Appendicitis Acute [address] [address] Social History Tobacco Use Types [...] How often do you attend orthodoxy or jew More than 4 time s [...] Comments Blood Pressure 115/48 09/17/2017 9:04 AM SPRAY GUN STRIPER Pulse 84 09/17/2017 9:04 AM SPRAY GUN STRIPER Temperature 36.6 ??C (97.9 ??F) 09/17/2017 9:04 AM SPRAY GUN STRIPER Respiratory Rate - - Oxygen Saturation - - Inhaled Oxygen Concentration - - Weight - - Height - - Body Mass Index - - documented in this encounter Patient Instructions Patient InstructionsHermelinda Hansen P.A.-C., P.A. - 09/17/2017 9:00 AM SPRAY GUN STRIPER Images from the original note were not [...] heals ??? Fever above 101.0??F (38.3??C) ?? [phone] [place] [address]. All rights reserved. This information is not intended as a substitute for professional medical care. Always follow your healthcare professional's instructions. Y GUN STRIPER documented in this encounter Progress Notes Hermelinda [...] from the hospital. She has been taking gkux-boy-jijmcri pain medications as needed since. She is [...] PATHOLOGY SERVICES Patient Name: PUNEET CLAYTON MR#: [id number] Submitting Physician: JAQUAN MONAHAN DO [id number] Specimen #[id number] Performing Lab: [address] [address] Source: Appendix Clinical History/Pre-Op Appendicitis acute [K35.80] Gross Description Labeled appendix consists of a 6.1 cm in length x 1.2 cm in diameter appendix, with attached mesoappendix (2.4 cm). The serosa is gatica-brown with focal areas of white exudate. The mucosa is red-brown hemorrhagic to necrotic. An area of disruption is not grossly identified. Honey Producer sections are submitted in cassette A1. KG/ed [...] ongoing postoperative parameters including pain management with [id number] Tylenolor ibuprofen as needed, ongoing incision care, [...] concerns that arise. Hermelinda Hansen P.A.-C., P.A. Y GUN STRIPER documented in this encounter Plan of Treatment Not on filedocumented as of this encounter Visit Diagnoses Diagnosis Appendectomy Laparoscopic Status Post - Primary Appendicitis Acute documented in this encounter Additional Health Concerns Assessment Noted Time PHQ-9 Depression Total Score: 7 04/07/2017 9:39 AM CDT documented as of this encounter Care Teams Quality Management Coordinator Relationship Specialty Start Date End Date Blaire Bundy P.A.-C. PCP - General 02/04/17 04/26/19 documented as of this encounter
--- OUTSIDE RECORDS SUMMARY | 2022-07-24 08:28 | XMS_ITS | Encounter Summary ---
:1985 Author Organization [facility] Address [address] [place] [address] Care Team Providers Name Role Phone Blaire Bundy P.A.-C. Primary Care Provider Reason for Referral Outpatient (Routine) - Closed Specialty Diagnoses / Procedures Referred By Contact Refer red To Contact General Surgery Diagnoses Appendicitis Acute Par Review Seng Reyna M.D. [facility] Region Procedures GNS POST OP [address] [place] [address] Referral ID Status Reason Start Date Expiration Date Visits Requ ested Visits Authorized [id number] Closed 09/09/2017 03/08/2018 1 1 Scheduling Instructions To see Dr. Monahan 09/15/2016 in [place] . OMER ASSISTANT Reason for Visit Reason Comments Abdominal Pain [...] Expiration Date Visits Requ ested Visits Authorized [id number] 1 1 Encounter Details Date Type Department Care Team Description 09/08/2017 - Emergency [facility], Natalie Car M.D. [address] [place] [phone] Appendicitis Acute 09/09/2017 [facility] [place] Helm M.D. [address] [place] [address] (Primary Dx) Center, Third Floor Jaquan Monahan D.O. [address] [place] [address] [place] [address] [address] [place] [address] Social History Tobacco Use Types [...] How often do you attend zoroastrianism or orthodox More than 4 time s [...] Comments Blood Pressure 126/63 09/09/2017 10:22 AM CUSTOMER ASSISTANT Pulse 79 09/09/2017 10:22 AM CUSTOMER ASSISTANT Temperature 36.7 ??C (98.1 ??F) 09/09/2017 10:22 AM CUSTOMER ASSISTANT Respiratory Rate 18 09/09/2017 10:22 AM CUSTOMER ASSISTANT Oxygen Saturation 94% 09/09/2017 10:22 AM CUSTOMER ASSISTANT Inhaled Oxygen Concentration - - Weight 145 kg (319 lb 10.7 oz) 09/08/2017 2:13 PM CUSTOMER ASSISTANT Height 157.5 cm (5' 2) 09/08/2017 10:09 AM CUSTOMER ASSISTANT Body Mass Index 58.47 09/08/2017 10:09 AM CUSTOMER ASSISTANT documented in this encounter Discharge Summaries Segn Reyna M.D. - 09/09/2017 9:51 AM CST INPATIENT DISCHARGE SUMMARY BRIEF OVERVIEW Discharge Provider: Taryn Ozuna M.D. Primary Care Providers: Blaire Thornton P.A.-C. (General) [address] [place] [phone] Primary Care Provider Primary Care Provider Other Providers: Admission Date: 09/08/2017 Discharge Date: 09/09/2017 PRINCIPAL DIAGNOSIS Appendicitis Acute SECONDARY DIAGNOSES Principal Problem: Appendicitis Acute Resolved Problems: * No resolved hospital problems. * Operative Procedures: Scheduled (Blank), Completed (Comp) or Canceled (Can) Case IDs Date Procedure Surgeon Location Status [id number] 09/08/17 LAPAROSCOPIC APPENDECTOMY Jaquan Monahan D.O. [facility] OR Comp DISCHARGE DISPOSITION Home or Self [...] Your Medications These medications were sent to [facility] - [address] [address] ?? ciprofloxacin 500 mg tablet ?? metroNIDAZOLE [...] ADMISSION ANESTHESIA FOLLOW-UP CONDITION AT DISCHARGE improved OMER ASSISTANT documented in this encounter Discharge Instructions AttachmentsThe following attachments cannot be sent through Care Everywhere.Care Following Your Laparoscopy (Indonesian)documented in this encounter Medications at Time [...] /or at baseline Post Op nausea/vomiting: none OMER ASSISTANT documented in this encounter H&P Notes Jaquan [...] or fallopian tube. She gives informed consent. OMER ASSISTANT documented in this encounter Nursing Notes Kiera [...] o-1 Refuses pain medication at this time OMER ASSISTANT documented in this encounter OR Notes Op Note - Jaquan Monahan D.O. - 09/08/2017 4:35 PM CST FULL OP NOTE Procedure(s): LAPAROSCOPIC APPENDECTOMY Surgeon(s) and Role: * Jaquan Monahan D.O. - Primary Chair Installer: Lior PerezPBrittaneyNBrittaney; Nichole Allen L.P.N. Anesthesia Type: [...] Appendix PATHOLOGY SERVICES Jaquan Monahan D.O. 09/08/2017 1702 Drains Indwelling Urinary Catheter Double-lumen 16 Fr. (Active) Estimated Blood Loss No blood loss documented. Implants * No implants in log * Jaquan Monahan D.O. OMER ASSISTANT Brief Op Note - Jaquan Monahan D.O. [...] implants in log * Jaquan Monahan D.O. OMER ASSISTANT documented in this encounter ED Notes Dimitri [...] for admission. He will contact the nursing production planning supervisor to determine a plan of when [...] was going to talk with the nursing production planning supervisor and the operating room about the [...] of Handoff Admission handoff Providers name Dr. lA Monahan I personally performed the services described in this documentation, as scribed in my presence, and it is both accurate and complete. Dimitri Car M.D. 09/08/172138 OMER ASSISTANT documented in this encounter Plan of Treatment Scheduled Referrals Name Type Priority Associated Diagnoses Order S [facility] Surgery Outpatient Referral Routine Appendicitis Acute Expected: Post Op (clinic) 09/15/2017 (Approximate), Expires: 09/09/2020 documented as of this encounter Procedures Procedure Name Priority Date/Time Associated Comments Diagnosis CBC WITH Routine 09/09/2017 7:05 Results for DIFFERENTIAL, B AM CUSTOMER ASSISTANT this procedu re are in the results section. INCENTIVE Routine 09/08/2017 6:39 SPIROMETRY - RT/RN PM CUSTOMER ASSISTANT INCENTIVE Routine 09/08/2017 6:39 SPIROMETRY - RT/RN PM CUSTOMER ASSISTANT INCENTIVE Routine 09/08/2017 6:39 SPIROMETRY - RT/RN PM CUSTOMER ASSISTANT INCENTIVE Routine 09/08/2017 6:39 SPIROMETRY - RT/RN PM CUSTOMER ASSISTANT INCENTIVE Routine 09/08/2017 6:39 SPIROMETRY - RT/RN PM CUSTOMER ASSISTANT INCENTIVE Routine 09/08/2017 6:39 SPIROMETRY - RT/RN PM CUSTOMER ASSISTANT INCENTIVE Routine 09/08/2017 6:39 SPIROMETRY - RT/RN PM CUSTOMER ASSISTANT INCENTIVE Routine 09/08/2017 6:39 SPIROMETRY - RT/RN PM CUSTOMER ASSISTANT INCENTIVE Routine 09/08/2017 6:39 SPIROMETRY - RT/RN PM CUSTOMER ASSISTANT INCENTIVE Routine 09/08/2017 6:39 SPIROMETRY - RT/RN PM CUSTOMER ASSISTANT INCENTIVE Routine 09/08/2017 6:39 SPIROMETRY - RT/RN PM CUSTOMER ASSISTANT ADULT OXYGEN Routine 09/08/2017 5:43 THERAPY PM CUSTOMER ASSISTANT PATHOLOGY SERVICES Routine 09/08/2017 5:08 Appendicitis Acute Results for PM CUSTOMER ASSISTANT this procedure are in the results section. LAPAROSCOPIC 09/08/2017 4:06 Appendicitis Acute APPENDECTOMY PM CUSTOMER ASSISTANT CT ABDOMEN PELVIS RAD - Semiurgent 09/08/2017 11:53 Re sults for WITH IV CONTRAST (Fast; most ED AM CUSTOMER ASSISTANT this proc edure patients; some are in the inpatients) results section. IRIS MICROSCOPIC, U STAT 09/08/2017 11:03 Resu lts for AM CUSTOMER ASSISTANT this procedure are in the results section. URINALYSIS WITH STAT 09/08/2017 11:03 Results for MICROSCOPIC IF AM CUSTOMER ASSISTANT this procedur e INDICATED, U are in the results section. HEPATIC FUNCTION STAT 09/08/2017 10:50 Results for PANEL, S AM CUSTOMER ASSISTANT this procedure are in the results section. CBC WITH STAT 09/08/2017 10:50 Results for DIFFERENTIAL, B AM CUSTOMER ASSISTANT this procedu re are in the results section. C-REACTIVE PROTEIN STAT 09/08/2017 10:50 Resul ts for (CRP), S/P AM CUSTOMER ASSISTANT this procedure are in the results section. HUMAN CHORIONIC STAT 09/08/2017 10:50 Results for GONADOTROPIN (HCG), AM CUSTOMER ASSISTANT this pro cedure MARCI, are in the results section. LIPASE, S/P STAT 09/08/2017 10:50 Results for AM CUSTOMER ASSISTANT this procedure are in the results section. LACTATE, B/P STAT 09/08/2017 10:50 Results for AM CUSTOMER ASSISTANT this procedure are in the results section. BASIC METABOLIC STAT 09/08/2017 10:50 Results for PANEL, S/P AM CUSTOMER ASSISTANT this procedure are in the results section. documented in this encounter Results (ABNORMAL) CBC with Differential (09/09/2017 7:05 AM CUSTOMER ASSISTANT) [facility] Method Time Signature Hemoglobin 11.1 (L) 11.6 - 09/09/2017 [facility] 15.0 g/dL 7:11 AM [employer] [facility] Hematocrit 34.8 (L) 35.5 - 09/09/2017 [facility] 44.9 % 7:11 AM [employer] [facility] Erythrocytes 4.18 3.92 - 09/09/2017 [facility] 5.13 7:11 AM CUSTOMER ASSISTANT HEALTH x10(12)/L [facility] [employer] [facility] [facility] MCV 83.3 78.2 - 09/09/2017 [facility] 97.9 fL 7:11 AM [employer] [facility] RBC Distrib Width 13.6 12.2 - 09/09/2017 [facility] 16.1 % 7:11 AM [employer] [facility] Platelet Count 263 157 - 371 09/09/2017 [facility] x10(9)/L 7:11 AM [facility] Leukocytes 11.8 (H) 3.4 - 9.6 09/09/2017 [facility] x10(9)/L 7:11 AM [facility] Neutrophils 10.54 (H) 1.56 - 09/09/2017 [facility] 6.45 7:11 AM [facility] x10(9)/L [facility] Lymphocytes 0.65 (L) 0.95 - 09/09/2017 [facility] 3.07 7:11 AM [facility] HEALTH x10(9)/L [facility] Monocytes 0.57 0.26 - 09/09/2017 [facility] 0.81 7:11 AM [facility] x10(9)/L [facility] Eosinophils 0.01 (L) 0.03 - 09/09/2017 [facility] 0.48 7:11 AM [facility] x10(9)/L [facility] [place] [facility] Basophils 0.01 0.01 - 09/09/2017 [facility] 0.08 7:11 AM [facility] x10(9)/L [facility] Specimen Anatomical Collection Method Collection Time Receive d Time (Source) Location / / Volume Laterality Blood (Blood, 09/09/2017 7:05 AM 09/09/19 7:08 Venous) CUSTOMER ASSISTANT AM CUSTOMER ASSISTANT Jaquan Monahan D.O. LAB BLOOD ADD-ON Performing Organization Address City/State/ZIP Code Phon e Number [facility] [address] [place] [address] [facility] Pathology Services (09/08/2017 5:08 PM CUSTOMER ASSISTANT) Component Value Ref Test Analysis Performed At [facility] Range Method Time Signature PATHOLOGY Patient Name: PUNEET CLAYTON LUZ ELENA [facility] SERVICES MR#: [id number] [facility] Submitting Physician: JAQUAN MONAHAN DO [id number] Specimen #[id number] Performing Lab: ??[facility] ? [address] [place] [id number] Source: Appendix Clinical History/Pre-Op Appendicitis acute [K35.80] Gross Description Labeled appendix consists of a 6.1 cm in length x 1.2 cm in diameter appendix, with attached mesoappendix ( 2.4 cm). ??The serosa is gatica-brown with focal areas of white exudate. ??The muco sa is red-brown hemorrhagic to necrotic. ??An area of disruption is not grossly id entified. ??[employer] Supervisor sections are submitted in cassette A1. KG/ed ?? Diagnosis Appendix, appendectomy: ACUTE APPENDICITIS WITH PERIAPPENDICITIS. Electronically Signed By JANNET HERNÁNDEZ MD - 09/10/2017 ed/09/10/2017 Specimen (Source) Anatomical Collection Method Collection Time Re ceived Time Location / / Volume Laterality Tissue (Appendix) 09/08/2017 5:08 PM CUSTOMER ASSISTANT Comment: Acute appendicitis Jaquan Monahan D.O. LAB SURG PATH ORDERABLES Performing Organization Address City/State/ZIP Code Phon e Number [facility] [address] [place] [address] CT Abdomen Pelvis with IV Contrast (09/08/2017 11:53 AM CUSTOMER ASSISTANT) Anatomical Region Laterality Modality Abdomen, Pelvis N/A Computed Tomography Specimen (Source) Anatomical Collection Method Collection Time Re ceived Time Location / / Volume Laterality 09/08/2017 12:00 PM CUSTOMER ASSISTANT Impressions 09/08/2017 12:07 PM CUSTOMER ASSISTANT IMPRESSION: 1. ??Acute uncomplicated appendicitis. 2. ??Hepatic steatosis. 3. ??Prominent follicle right ovary. Narrative 09/08/2017 12:07 PM CUSTOMER ASSISTANT EXAM: CT ABDOMEN PELVIS WITH IV CONTRAST [...] (ABNORMAL) Marly Mullen, U (09/08/2017 11:03 AM [facility]) Analysis Performed At Patho logist Time Signature White Blood 11-20 (A) /hpf 09/08/2017 [facility] Cells 11:13 AM [facility] Comment: ----REFERENCE VALUE---- Males: 0-3 Females: 0-10 Unknown: 0-10 Red Blood Cells Occ-2 0 - 2 /hpf 09/08/2017 11:13 AM [facility] Mucus Present /hpf 09/08/2017 11:13 AM [facility] [place] Squamous Epithelial Occ-3 /hpf 09/08/2017 11:13 AM [facility] Bacteria Present (A) None Seen 09/08/2017 11:13 AM [facility] Specimen Anatomical Collection Method Collection Time Receive d Time (Source) Location / / Volume Laterality Urine 09/08/2017 11:03 09/08/2017 AM CUSTOMER ASSISTANT 11:05 AM CUSTOMER ASSISTANT Dimitri Car M.D. LAB URINE ORDERABLES Performing Organization Address City/State/ZIP Code Phon e Number [facility] [address] [facility] [place] [address] [facility] (ABNORMAL) Urinalysis with Microscopic if Indicated (09/08/2017 11:03 AM CUSTOMER ASSISTANT) Analysis Performed At Patho logist Time Signature Source Midstream 09/08/2017 [facility] 11:13 AM [facility] Clarity Slightly Clear 09/08/2017 [facility] Cloudy (A) 11:13 AM [facility] Color Yellow 09/08/2017 [facility] 11:13 AM [facility] Comment: ----REFERENCE VALUE---- Colorless Yellow [place]omen[place] Blood Negative Negative 09/08/2017 11:13 AM [facility] Nitrite Positive (A) Negative 09/08/2017 11:13 AM [facility] Leukocyte Esterase Moderate (A) Negative 09/08/2017 11:[address] [facility] Protein, U Trace mg/dL 09/08/2017 11:13 AM [facility] Comment: ----REFERENCE VALUE---- Negative Trace Glucose Negative Negative mg/dL 09/08/2017 11:[address] [facility] Ketone Negative Negative mg/dL 09/08/2017 11:[address] [facility] Bilirubin Negative Negative 09/08/2017 11:13 AM [facility] pH 6.0 5.0 - 8.0 09/08/2017 11:13 AM [facility] Specific [place] 1.015 1.001 - 1.035 09/08/2017 11:13 AM [facility] Urobilinogen 0.2 0.2 - 1.0 09/08/2017 11:13 AM [facility] Specimen Anatomical Collection Method Collection Time Receive d Time (Source) Location / / Volume Laterality Urine (Urine, 09/08/2017 11:03 09/08/2017 Clean Catch) AM CUSTOMER ASSISTANT 11:05 AM CUSTOMER ASSISTANT Dimitri Car M.D. LAB URINE ORDERABLES Performing Organization Address City/State/ZIP Code Phon e Number [address] [place] [address] [facility] (ABNORMAL) CRP (C-Reactive Protein) (09/08/2017 10:50 AM CUSTOMER ASSISTANT) Analysis Performed At Patho logist Time Signature C-Reactive 115.8 (H) <=8.0 mg/L 09/08/2017 [facility] Protein (CRP), 11:12 AM [facility] Specimen Anatomical Collection Method Collection Time Receive d Time (Source) Location / / Volume Laterality Blood (Blood, 09/08/2017 10:50 09/08/2017 Venous) AM CUSTOMER ASSISTANT 10:52 AM CUSTOMER ASSISTANT Dimitri Car M.D. LAB BLOOD ADD-ON Performing Organization Address City/State/ZIP Code Phon e Number [address] [address] [facility] hCG (Human Chorionic Gonadotropin), Quantitative, (09/08/2017 10:50 AM CUSTOMER ASSISTANT) P athologist Signature HCG, <0.5 IU/L 09/08/2017 [facility] Quantitative, 11:36 AM [facility] [place] [facility] Comment: Biotin has been identified by [...] Blood (Blood, 09/08/2017 10:50 09/08/2017 Venous) AM CUSTOMER ASSISTANT 10:52 AM CUSTOMER ASSISTANT Dimitri Car M.D. LAB BLOOD ADD-ON Performing Organization Address City/State/ZIP Code Phon e Number [facility] [place] [address] [facility] Lipase (09/08/2017 10:50 AM CUSTOMER ASSISTANT) P athologist Signature Lipase, P 22 13 - 60 U/L 09/08/2017 [facility] 11:13 AM [facility] Specimen Anatomical Collection Method Collection Time Receive d Time (Source) Location / / Volume Laterality Blood (Blood, 09/08/2017 10:50 09/08/2017 Venous) AM CUSTOMER ASSISTANT 10:52 AM CUSTOMER ASSISTANT Dimitri Car M.D. LAB BLOOD ADD-ON Performing Organization Address City/[facility]/ZIP Code Phon e Number [facility] [place] [address] [facility] Lactate (09/08/2017 10:50 AM CUSTOMER ASSISTANT) P athologist Signature Lactate, P 0.7 0.6 - 2.3 09/08/2017 [facility] mmol/L 11:11 AM [facility] Specimen Anatomical Collection Method Collection Time Receive d Time (Source) Location / / Volume Laterality Blood (Blood, 09/08/2017 10:50 09/08/2017 Venous) AM CUSTOMER ASSISTANT 10:52 AM CUSTOMER ASSISTANT Dimitri Car M.D. LAB BLOOD NON ADD-ON Performing Organization Address City/State/ZIP Code Phon e Number [facility] [place] [address] [facility] (ABNORMAL) Hepatic Function Panel (09/08/2017 10:50 AM CUSTOMER ASSISTANT) Patholo gist Method Time Signature Bilirubin, Total, S 1.1 <=1.2 09/08/2017 [facility] mg/dL 11:12 AM [facility] Bilirubin, Direct, S 0.2 0.0 - 0.3 09/08/2017 [facility] mg/dL 11:12 AM [facility] Aspartate 32 8 - 43 09/08/2017 [facility] Aminotransferase U/L 11:12 AM [facility] Alanine 83 (H) 7 - 45 09/08/2017 [facility] Aminotransferase U/L 11:12 AM [facility] ([facility] Alkaline 101 (H) 37 - 98 09/08/2017 [facility] Phosphatase, S U/L 11:12 AM [facility] Albumin, S 3.9 3.5 - 5.0 09/08/2017 [facility] g/dL 11:12 AM [facility] Protein, Total, S 6.9 6.3 - 7.9 09/08/2017 [facility] g/dL 11:12 AM [facility] Specimen Anatomical Collection Method Collection Time Receive d Time (Source) Location / / Volume Laterality Blood (Blood, 09/08/2017 10:50 09/08/2017 Venous) AM CUSTOMER ASSISTANT 10:52 AM CUSTOMER ASSISTANT Dimitri Car M.D. LAB BLOOD ADD-ON Performing Organization Address City/State/ZIP Code Phon e Number [facility] [address] [place] [address] [facility] BMP (Basic Metabolic Panel) (09/08/2017 10:50 AM CUSTOMER ASSISTANT) P athologist Signature Potassium, P 4.2 3.6 - 5.2 09/08/2017 [facility] mmol/L 11:13 AM [facility] Sodium, P 135 135 - 145 09/08/2017 [facility] mmol/L 11:13 AM [facility] Chloride, P 99 98 - 107 09/08/2017 [facility] mmol/L 11:13 AM [facility] Bicarbonate, P 22 22 - 29 09/08/2017 [facility] mmol/L 11:13 AM [facility] Anion Gap, P 14 7 - 15 09/08/2017 [facility] 11:13 AM [facility] BUN (Blood Urea 7 6 - 21 09/08/2017 [facility] Nitrogen), P mg/dL 11:13 AM [facility] Creatinine 0.62 0.59 - 09/08/2017 [facility] 1.04 mg/dL 11:13 AM [facility] eGFR-Black/Afri >90 >=60 09/08/2017 [facility] can Czech mL/min/BSA 11:[address] [facility] Comment: ----ADDITIONAL INFORMATION---- Estimated GFR calculated using the 2009 CKD_EPI creatinine equation. eGFR Non-Black/ >90 >=60 mL/min/BSA 09/08/2017 11:13 AM [facility] [place] [facility] Comment: ----ADDITIONAL INFORMATION---- Estimated GFR calculated using the 2009 CKD_EPI creatinine equation. Calcium, Total, P 9.1 8.9 - 10.1 mg/dL 09/08/2017 1 1:13 AM [facility] Glucose, P 104 70 - 140 mg/dL 09/08/2017 11:13 AM [facility] Specimen Anatomical Collection Method Collection Time Receive d Time (Source) Location / / Volume Laterality Blood (Blood, 09/08/2017 10:50 09/08/2017 Venous) AM CUSTOMER ASSISTANT 10:52 AM [facility] Dimitri Car M.D. LAB BLOOD ADD-ON Performing Organization Address City/State/ZIP Code Phon e Number [facility] [address] [place] [address] [facility] (ABNORMAL) CBC with Differential (09/08/2017 10:50 AM [facility]) [facility] Method Time Signature Hemoglobin 12.3 11.6 - 09/08/2017 [facility] 15.0 g/dL 10:56 AM [facility] Hematocrit 37.8 35.5 - 09/08/2017 [facility] 44.9 % 10:56 AM [facility] Erythrocytes 4.60 3.92 - 09/08/2017 [facility] 5.13 10:56 AM [facility] HEALTH x10(12)/L [facility] MCV 82.2 78.2 - 09/08/2017 [facility] 97.9 fL 10:56 AM [facility] RBC Distrib Width 13.9 12.2 - 09/08/2017 [facility] 16.1 % 10:56 AM [facility] Platelet Count 293 157 - 371 09/08/2017 [facility] x10(9)/L 10:56 AM [facility] Leukocytes 15.8 (H) 3.4 - 9.6 09/08/2017 [facility] x10(9)/L 10:56 AM [facility] Neutrophils 13.48 (H) 1.56 - 09/08/2017 [facility] 6.45 10:56 AM [facility] x10(9)/L [facility] Lymphocytes 1.35 0.95 - 09/08/2017 [facility] 3.07 10:56 AM [facility] x10(9)/L [facility] Monocytes 0.87 (H) 0.26 - 09/08/2017 [facility] 0.81 10:56 AM [facility] x10(9)/L [facility] Eosinophils 0.04 0.03 - 09/08/2017 [facility] 0.48 10:56 AM [facility] x10(9)/L [facility] Basophils 0.03 0.01 - 09/08/2017 [facility] 0.08 10:56 AM [facility] x10(9)/L [facility] Specimen Anatomical Collection Method Collection Time Receive d Time (Source) Location / / Volume Laterality Blood (Blood, 09/08/2017 10:50 09/08/2017 Venous) AM CUSTOMER ASSISTANT 10:52 AM CUSTOMER ASSISTANT Dimitri Car M.D. LAB BLOOD ADD-ON Performing Organization Address City/State/ZIP Code Phon e Number [facility] [address] [place] [address] [facility] documented in this encounter Visit Diagnoses Diagnosis Appendicitis Acute - Primary Appendicitis Acute documented in this encounter Administered Medications Inactive Administered Medications - up to 3 most recent administrations Medication Order MAR Action Action Date Dose Rate Site ciprofloxacin in D5W IVPB New Bag 09/08/2017 12:29 PM 400 mg 2 00 mL/hr Right Hand 400 mg (for_CIPRO) CUSTOMER ASSISTANT 400 mg, intravenous, at 200 mL/hr, Administer over 60 Minutes, Once, On Wed09/08/17 at 1216, For 1 dose, premix bag, Drug Monitoring Program: Pharmacist to adjust medication order based on comorbities and indication., Indications: Appendicitis ciprofloxacin in D5W IVPB New Bag 09/09/2017 12:23 AM 400 mg 2 00 mL/hr Right Hand 400 mg (for_CIPRO) CUSTOMER ASSISTANT 400 mg, intravenous, at 200 mL/hr, Administer over 60 Minutes, Once, On Bryanna 09/09/17 at 0030, For 1 dose, Start within 12 hours of last dose. premix bag, Drug Monitoring Program: Pharmacist to adjust medication order based on comorbities and indication., Indications: Prophylaxis, surgical heparin (porcine) 5,000 Given 09/08/2017 2:43 PM CUSTOMER ASSISTANT 5,000 Units Abdominal Tissue unit/0.5 mL injection - ADS Override Pull Starting on Wed09/08/17 at 1426, For 1 dose, Created by cabinet override heparin (porcine) Given 09/09/2017 9:14 AM CUSTOMER ASSISTANT 7,500 Units Left Lower Abdomen injection 7,500 Units 7,500 Units, subcutaneous, 3 times daily, First dose on Bryanna 09/09/17 at 0145 Given 09/09/2017 1:48 AM CUSTOMER ASSISTANT 7,500 Units Right Lower Abdomen HYDROmorphone injection 0.5 mg (for_[facility]IL[facility] UDID) Given 09/08/2017 2:40 PM CUSTOMER ASSISTANT 0.5 mg 0.5 mg, intravenous, Every 1 hour PRN, moderate pain or score 4-6 of 10, Starting on Wed09/08/17 at 1253 iohexol 350 mg iodine/mL solution Given 09/08/2017 11:54 AM CUSTOMER ASSISTANT 171 mL Right Hand 171 mL (for_OMNIPAQUE) 171 mL, intravenous, Once in imaging, contrast, Starting on Wed09/08/17 at 1059, For 1 dose ketorolac injection 30 mg Given 09/08/2017 10:57 AM CUSTOMER ASSISTANT 30 mg Right Hand (for_TORADOL) 30 mg, intravenous, Once, On Wed09/08/17 at 1040, For 1 dose, Adult IV push rate: Over 15 seconds. Peds IV push rate: Over 1 minute. 60 mg dose only for IM, not recommended for IV., Drug Monitoring Program: Pharmacist to adjust medication order based on comorbities and indication. lactated ringers New Bag 09/08/2017 2:50 PM CUSTOMER ASSISTANT 20 mL/hr 20 mL/hr 20 mL/hr, intravenous, Continuous, Starting on Wed09/08/17 at 1430, Pre-Op lactated ringers Rate/Dose Verify 09/08/2017 10:00 PM CUSTOMER ASSISTANT 75 mL/hr 75 mL/hr 75 mL/hr, intravenous, Continuous, Starting on Wed09/08/17 at 2000 New Bag 09/08/2017 7:55 PM CUSTOMER ASSISTANT 75 mL/hr 75 mL/hr metroNIDAZOLE in NaCl (iso-osm) New Bag 09/08/2017 1:39 PM CUSTOMER ASSISTANT 500 mg 200 mL/hr IVPB 500 mg (for_FLAGYL) 500 mg, intravenous, at 200 mL/hr, Administer over 30 Minutes, Once, On Wed09/08/17 at 1210, For 1 dose, Indications: Appendicitis metroNIDAZOLE in NaCl (iso-osm) New Bag 09/09/2017 5:36 AM CUSTOMER ASSISTANT 500 mg 200 mL/hr IVPB 500 mg (for_FLAGYL) 500 mg, intravenous, at 200 mL/hr, Administer over 30 Minutes, Every 8 hours, First dose on Wed09/08/17 at 2145, For 2 doses, Start within 8 hours of last dose., Indications: Prophylaxis, surgical New Bag 09/08/2017 9:25 PM CUSTOMER ASSISTANT 500 mg 200 mL/hr morphine injection 4 mg Given 09/08/2017 10:57 AM CUSTOMER ASSISTANT 4 mg 4 mg, intravenous, Every 20 min PRN, moderate pain or score 4-6 of 10, severe pain or score 7-10 of 10, Starting on Wed09/08/17 at 1038, For 3 doses NaCl 0.9 % bolus 1,000 New Bag 09/08/2017 10:58 AM 1,000 mL 2000 mL/hr Right Hand mL CUSTOMER ASSISTANT 1,000 mL, intravenous, at 2,000 mL/hr, Administer over 0.5 Hours, Once, On Wed09/08/17 at 1040, For 1 dose NaCl 0.9% infusion New Bag 09/08/2017 11:27 AM 1,000 mL/hr 1000 mL/hr Right Aiken nd 1,000 mL/hr, CUSTOMER ASSISTANT intravenous, Continuous, Starting on Wed09/08/17 at 1040, For Hydration ondansetron (PF) injection 4 mg (for_ZOF RAN) Given 09/08/2017 2:51 PM CUSTOMER ASSISTANT 4 mg 4 mg, intravenous, Every 20 min PRN, nausea, vomiting, Starting on Wed09/08/17 at 1038, For 2 doses Given 09/08/2017 10:57 AM CUSTOMER ASSISTANT 4 mg ondansetron (PF) injection 4 mg (for_ZOF RAN) 4 mg, intravenous, Every 6 hours PRN, na usea, vomiting, Starting on Wed09/08/17 at 1254 oxyCODONE IR tablet 5 mg (for_ROXICODONE ) Given 09/09/2017 5:45 AM CUSTOMER ASSISTANT 5 mg 5 mg, oral, Every 4 hours PRN, mild pain or score 1-3 of 10, Starting on Wed09/08/17 at 1839 Given 09/09/2017 12:40 AM CUSTOMER ASSISTANT 5 mg sodium chloride 0.9 % injection 10 mL 10 mL, intravenous, As needed, line care, Starting on Wed09/08/17 at 1037, Peripheral Intravenous Catheter and Rapid Infusion Cat heter, prior to blood sampling, post blood transfusion or post blood samplin g sodium chloride 0.9 % injection 10 Given 09/08/2017 11:55 AM CUSTOMER ASSISTANT 10 mL Right Hand mL 10 mL, [...] % injection 80 Given 09/08/2017 11:09 AM CUSTOMER ASSISTANT 80 mL Right Hand mL 80 mL, intravenous, Once, On Wed09/08/17 at 1109, For 1 dose documented in this encounter Active and Recently Administered Medications Times are shown in CUSTOMER ASSISTANT. Scheduled Medication Order 09/07/2017 09/08/2017 09/09/2017 ciprofloxacin [...] Lundberg R.N. - Comment: incorrect order by [facility] - valdesetyrel T.O. not to give had difficulity removing [...] Provider, Automatic - Reason: Patient not available)1811 ([facility] Unhold - Provider: Transfer Provider, [...] (Given - Pr ovider: Keiry Perales R.N.)1408 ([facility] Hold - Provider: Transfer Provider, Automatic - Reason: Patient not available)181 ([facility] Unhold - Provider: Transfer Provider, [...] 1057 (Given - Provider: Keiry Perales R.N.)1408 ([facility] Hold - Provider: Transfer Provider, Automatic - Reason: Patient not available)1451 (Given - Provider: Zelda Vilchis R.N.)181 ([facility] Unhold - Provider: Transfer Provider, Automatic) 4 mg, intravenous, Every 20 min PRN, [place], vomiting, Starting on Wed09/08/17 at 1038, For 2 doses ondansetron (PF) injection 4 mg (for_ZOFRAN) 1408 ([facility] Hold - Provider: Transfer Provider, Automatic - Reason: Patient not available)1448 (Dose Auto Held)181 ([facility] Unhold - Provider: Transfer Provider, [...] documented as of this encounter Care Teams Seating Upholsterer Relationship Specialty Start Date End Date Blaire Bundy P.A.-C. PCP - General 02/04/17 04/26/19 documented as of this encounter
--- OUTSIDE RECORDS SUMMARY | 2022-07-24 08:28 | XMS_ITS | Encounter Summary ---
:1985 Author Organization [facility] Address [address] [place] [address] Care Team Providers Name Role Phone Blaire Bundy P.A.-C. Primary Care Provider [phone] Encounter Details Date Type Department Care Team Description 11/08/2017 Orders Only Department of [facility] Calculus Of Bile Duct Gastroenterology in Marko Marcos M.D. Without Cholangitis [place], [place] [address] Or Cholecystitis With [address] [place], [place] Obstruction ([place] [phone] Dx) [phone] Social History Tobacco Use Types Packs/Day Years [...] to pay for the very basics like [employer] hat hard 07/09/2020 food, housing, medical care, [...] documented as of this encounter Care Teams Dielectric Press Operator Relationship Specialty Start Date End Date Blaire Bundy P.A.-C. PCP - General 02/04/17 04/26/19 documented as of this encounter
--- OUTSIDE RECORDS SUMMARY | 2022-07-24 08:29 | XMS_ITS | Encounter Summary ---
:1985 Author Organization [facility] Address [address] [place] [address] Care Team Providers Name Role Phone Blaire Bundy P.A.-C. Primary Care Provider [phone] Reason for Visit Reason Comments Care Encounter Details Date Type Department Care Team Description 07/29/2017 Office Visit Department of Leonora Reaves, Management C ontraception By Injection (Primary Dx); Obstetrics and COSTUME RENTAL CLERK, C.N.P. Exam (HCC) Gynecology in [address] [address] [place], [place] [phone] (Work) [phone] Social History Tobacco Use Types Packs/Day Years [...] Comments Blood Pressure 132/82 07/29/2017 10:53 AM SPRAYER HAND Pulse - - Temperature - - Respiratory Rate - - Oxygen Saturation - - Inhaled Oxygen Concentration - - Weight 145 kg (319 lb 10.7 oz) 07/29/2017 10:53 AM SPRAYER HAND Height - - Body Mass Index 58.3 06/23/2017 4:33 PM CDT documented in this encounter Progress Notes Leonora Reaves R.N., WHNP-BC - 07/29/2017 11:00 AM CST SUBJECTIVE CHIEF COMPLAINT / REASON FOR VISIT Carol Cooley, , is status post vaginal at [facility] in [place]. Antepartum course was complicated by: Obesity. course [...] or hernia Genitalia: external vulva, Bartholin's, urethra, [place]'s glands and fourchette negative Perineum: intact; well healed Vagina: normal Cervix: normal Bimanual: exam revealed normal mobile uterus, negative adnexa Rectovaginal exam: confirms good sphincter tone Hot Punch Press Operator for pelvic exam or qualifying procedure: [...] of the content. Leonora Reaves R.N., SIM- YER HAND documented in this encounter Plan of Treatment Not on filedocumented as of this encounter Visit Diagnoses Diagnosis Management Contraception By Injection - Primary Exam (HCC) documented in this encounter Administered Medications Inactive Administered Medications - up to 3 most recent administrations Medication Order MAR Action Action Date Dose Rate Site medroxyPROGESTERone injection Given 07/29/2017 150 mg Right Vastus 150 mg 11:37 AM SPRAYER HAND Lateralis 150 mg, intramuscular, Every 12 weeks, First dose on Bryanna 07/29/17 at 1145, For 4 doses documented in this encounter Additional Health Concerns Assessment Noted Time PHQ-9 Depression Total Score: 7 04/07/2017 9:39 AM CDT documented as of this encounter Care Teams Dominatrix Relationship Specialty Start Date End Date Blaire Bundy P.A.-C. PCP - General 02/04/17 04/26/19 documented as of this encounter
--- OUTSIDE RECORDS SUMMARY | 2022-07-24 08:29 | XMS_ITS | Encounter Summary ---
:1985 Author Organization [facility] Address [address] [place] [address] Care Team Providers Name Role Phone Blaire Bundy P.A.-C. Primary Care Provider [phone] Encounter Details Date Type Department Care Team Description 09/08/2017 Nurse Triage Department of [facility] Todd nikolas Marcos, RBrittaneyNBrittaney [facility], ([address] [place] [address] [place] [address] Social History Tobacco Use Types [...] How often do you attend episcopalian or confucianism More than 4 time s [...] documented as of this encounter Care Teams Attendant Lodging Facilities Relationship Specialty Start Date End Date Blaire Bundy P.A.-C. PCP - General 02/04/17 04/26/19 documented as of this encounter
--- OUTSIDE RECORDS SUMMARY | 2022-07-24 08:29 | XMS_ITS | Encounter Summary ---
:1985 Author Organization [facility] Address [address] [place] [address] Care Team Providers Name Role Phone Catracho Bundy P.A.-C. Primary Care Provider Encounter Details Date Type Department Care Team Description 06/15/2017 Hospital Encounter [facility] Leon[facility] Melchor, Maureen TARIQ, C.N.P. [address] [place], [place] [phone] (Wo rk) Social History [...] How often do you attend cheondoism or tenriism More than 4 time s [...] 06/15/2017 10:26 AM CDT Ambulatory Patient Summary [address] [id number] Visit Information Name: COOLEY PUNEET ALVARADO [facility] Number: [id number] Current Date: 06/15/2017 10:26:41 Physicians Attending Provider: LEONORA VILLASEÑOR R.N. [facility] Primary Care Provider: CATRACHO NAZARIO PA-C PUNEET [...] you dont have one. Go to [email or web address] and click on Create Your Account. Then, follow the directions to complete the online form. Youll be asked for your [facility] number which you can find at the top of this document. Your Goals/Additional instructions: Source: [facility] POWERCHART Document Id: [id number] Miscellaneous - Leonora Villaseñor R.N., WHNP-BC - 06/15/2017 10:26 AM CDT Ambulatory Discharge Medication List [address] [id number] Visit Information Name: PUNEET COOLEY [facility] Number: [id number] Current Date: 06/15/2017 10:26:41 [...] case of emergency. Electronically Signed By: LEONORA VLILASEÑOR R.N. [facility] Signed On:15-JUN-2017 10:26:39 Additional Information: Source: [facility] POWERCHART Document Id: [id number] Miscellaneous - Roosevelt Rodriges, L.P.N. - 06/15/2017 10:24 AM CDT Adult Practicing Md Anesthesiologist Intake/History Adult Practicing Md Anesthesiologist Intake/History Entered On: 06/15/2017 10:27 CDT Performed On: 06/15/2017 10:24 CDT by ROOSEVELT RODRIGES TECHNICAL SALES SUPPORT SPECIALIST Intake Chief Complaint : OB check [...] Information Given By : Patient Languages : German Is Patient Female and 13-50 no hysterectomy [...] Coffee, Soft drinks Frequency : Occasionally ROOSEVELT ORDRIGES LPN - 06/15/2017 10:24 CDT Recreational Drug Use Grid Drug Use : None ROOSEVELT RODRIGES LPN 06/15/2017 10:24 CDT Source: Unbound Document Id: [id number] CDT!40 documented in this encounter Plan of Treatment Not on filedocumented as of this encounter Visit Diagnoses Not on filedocumented in this encounter Additional Health Concerns Assessment Noted Time PHQ-9 Depression Total Score: 7 04/07/2017 9:39 AM CDT documented as of this encounter Care Teams Records Management Specialist Relationship Specialty Start Date End Date Catracho Bundy P.A.-C. PCP - General 02/04/17 04/26/19 documented as of this encounter
--- OUTSIDE RECORDS SUMMARY | 2022-07-24 08:29 | XMS_ITS | Encounter Summary ---
:1985 Author Organization [facility] Address [address] [place] [address] Care Team Providers Name Role Phone Blaire Bundy P.A.-C. Primary Care Provider Encounter Details Date Type Department Care Team Description 08/02/2017 Nurse Triage Department of [facility] Anastasia Sands, Medicine, [facility], R.N. in [address] [place] [address] [place] [address] [phone] Social History Tobacco Use Types Packs/Day Years [...] How often do you attend evangelical or restorationist More than 4 time s [...] as of this encounter Care Teams Consulting Sales Executive Relationship Specialty Start Date End Date Blaire Bundy P.A.-C. PCP - General 02/04/17 04/26/19 documented as of this encounter
--- OUTSIDE RECORDS SUMMARY | 2022-07-24 08:29 | XMS_ITS | Encounter Summary ---
:1985 Author Organization [facility] Address [address] [place] [address] Care Team Providers Name Role Phone Blaire [...] often do you attend oriental orthodox or sabianist More than 4 time s [...] in this encounter Results HX Syphilis Antibody [place], S (06/23/2017 8:47 AM CDT) [facility] Method Time Signature HX Syphilis Negative Negative [facility] - W/Reflex, S [facility] Comment: Peripheral IV ? No serologic evidence of exposure to syp hilis. ? Specimen Anatomical Collection Method Collection Time Receive d Time (Source) Location / / Volume Laterality 06/23/2017 8:47 AM 7 8:47 CDT AM CDT Narrative [facility] - 06/23/2017 12:57 PM CDT Peripheral IV Carol Hoskins M.D. LAB HISTORICAL ORDERS Performing Organization Address City/State/ZIP Code Phon e Number [facility] - [address] [place], [place] [address] [facility] documented in this encounter Visit Diagnoses Not on filedocumented in this encounter Additional Health Concerns Assessment Noted Time PHQ-9 Depression Total Score: 7 04/07/2017 9:39 AM CDT documented as of this encounter Care Teams Cuff Presser Relationship Specialty Start Date End Date Blaire Bundy PGladys. PCP - General 02/04/17 04/26/19 documented as of this encounter
--- OUTSIDE RECORDS SUMMARY | 2022-07-24 08:29 | XMS_ITS | Encounter Summary ---
:1985 Author Organization [facility] Address [address] [place] [address] Care Team Providers Name Role Phone Unavailable Primary Care Provider Unavailable Encounter Details Date Type Department Care Team Description 12/09/2016 Hospital Encounter HX [facility] Rabia Melchor A PRN, C.N.P. [address] [place], [place] [phone] (Wo rk) Social History [...] How often do you attend gnosticist or faith More than 4 time s [...] oxygen. G1: 1 FT Date: 01-03-2008. Location [place]. weight 7#13oz Complications high blood pressure Delivery [...] Found Sexual history Brendon, . 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 Genetic testing and screening options discussed, booklet given. She is not interested in meeting with a genetic specialist or partner screening at this time. 6) BMI 59. planning delivery at [facility]. will plan for shared care. undecided on where anatomy scan ultrasound will be, here or at [facility]. 7) smoker, quitting. down to 1-2 cigs/week Referrals: _ Electronically Signed By: RABIA REAVES CNP, RN On: 12/09/2016 10:02 AM Modified by and Electronically Signed by: RABIA REAVES CNP RN On: 12/09/2016 10:02 AM Source: [facility] POWERCHART Document Id: [id number] documented in this encounter Nursing Notes Dawna [...] Medical ; Code: 305.1 ; Contributor System: Kilopass ; Last Updated: 12/12/2014 9:21 CDT ; [...] Medical ; Code: 784.0 ; Contributor System: Navini NetworksChart ; Last Updated: 12/12/2014 9:11 CDT ; Life Cycle Status: Active ; Vocabulary: ICD-9-CM ; Comments: - Headache Headache Migraine (ICD-9-CM :346.90 ) Name of Problem: Headache Migraine ; Onset Date: 01/21/2012 ; Recorder: RABIA HOLMAN MD; Confirmation: Confirmed ; Classification: Medical ; Code: 346.90 ; Contributor System: PowerChart ; Last Updated: 12/12/2014 9:11 CDT ; Life Cycle Status: Active; Responsible Provider: RAIBA HOLMAN MD; Vocabulary: ICD-9-CM (SNOMED CT :187076047 ) Name of Problem: ; Onset Date: 10/03/2016 ; Recorder: DAWNA MADERA L.P.N.; Confirmation: Confirmed ; Classification: Medical ; Code: 860018260 ; Last Updated: 12/09/2016 8:32 CDT ; Life Cycle Status: Active ; Responsible Provider: DAWNA MADERA L.P.N.; Vocabulary: SNOMED CT Diagnoses(Active) Date: 12/09/2016 ; Confirmation: Confirmed ; Clinical Dx: ; Classification: Medical ; Code: SNOMED CT ; Probability: 0 ; Diagnosis Code: 201684223 - Procedure History (As Of: 12/09/2016 09:09:45 [...] Medical ; Code: 346.90 ; Contributor System: Kilopass ; Last Updated: 12/12/2014 9:11 CDT ; Life Cycle Status: Active ; Responsible Provider: RABIA HOLMAN MD; Vocabulary: ICD-9-CM Headache Name of Problem: Headache ; Onset Date: 10/24/2007 ; Confirmation: Confirmed ; Classification: Medical ; Code: 784.0 ; Contributor System: Navini NetworksChart ; Last Updated: 12/12/2014 9:11 CDT ; LifeCycle Status: Active ; Vocabulary: ICD-9-CM ; Comments: - Headache Dysthymic Disorder Name of Problem: Dysthymic Disorder ; Onset Date: 08/01/2010 ; Confirmation: Confirmed ; Classification: Medical ; Code: 300.4 ; Contributor System: Navini NetworksChart ; Last Updated: 12/12/2014 9:11 CDT ; Life Cycle Status: Active ; Vocabulary: ICD-9-CM ; Comments: - Dysthymic disorder Name of Problem: ; Recorder: NICHOLE ADDISON; Confirmation: Confirmed ; Classification: Medical ; Code: 641795003 ; Last Updated: 12/12/2014 9:12 CDT ; [...] Comments: 03/13/2014 13:47 - JORY COPPOLA F PROFESSOR OF FOOD BIOCHEMISTRY brain cancer ; Value: Positive Grandfather: maternal Full Name: maternal ; Relation: Grandfather ; Nomenclature: Cancer ; Comments: 03/13/2014 13:47 - PLEINSTEPHANIEY F PROFESSOR OF FOOD BIOCHEMISTRY larynx ; Value: Positive Grandmother: maternal Full Name: maternal ; Relation: Grandmother ; Nomenclature: Cancer ; Comments: 03/13/2014 13:47 - PLEIN JORY F PROFESSOR OF FOOD BIOCHEMISTRY ear ; Value: Positive Anesth/Transfusion Transfusion Acceptable [...] None Behavioral Health Screen/Safety Assmt : No Mormon Preference : No qualifying data available. DAWNA [...] CNP, SHRUTHI - 12/09/2016 10:03 CDT Source: [facility] POWERCHART Document Id: [id number]!27 documented in this encounter Miscellaneous Notes Miscellaneous - Rabia Reaves R.N., [facility]- - 05/20/2017 9:10 AM CDT RE: From: RABIA REAVES R.N. [facility] To: PUNEET CLAYTON Sent: 05/20/2017 09:10:24 CDT [...] From: PUNEET CLAYTON To: RABIA REAVES R.N. [facility] Sent: 05/19/2017 4:41:33 PM ([facility]-06:00) Central Time ([place] & [place]) Subject: RE: Should it hurt to walk though and when I move? From: RABIA REAVES R.N. [facility] To: PUNEET CLAYTON Sent: 05/19/2017 16:18:07 CDT Subject: RE: As you get closer to the end of the , it is not uncommon to have increased pelvic or vaginal pressure. If you have noticed a significant change in how you feel though, you should come in to beseen. From: PUNEET CLAYTON To: RABIA REAVES R.N. [facility] Sent: 05/19/2017 12:08:54 PM ([facility]-06:00) Central Time ([place] & [place]) Subject: [...] questions. have a good day! Rabia Source: [facility] POWERCHART Document Id: [id number] Miscellaneous - Rabia Reaves R.N., [facility] - 05/19/2017 4:18 PM CDT RE: From: RABIA [facility]AVES R.N. [facility] To: PUNEET CLAYTON Sent: 05/19/2017 16:18:07 CDT Subject: RE: As you get closer to the end of the , it is not uncommon to have increased pelvic or vaginal pressure. If you have noticed a significant change in how you feel though, you should come in to beseen. From: PUNEET CLAYTON To: RABIA REAVES R.N. [facility] Sent: 05/19/2017 12:08:54 PM ([facility]-06:00) Central Time ([place] & [place]) Subject: [...] questions. have a good day! Rabia [facility] Document Id: [id number] Miscellaneous - Rabia Reaves R.N. - 12/15/2016 [...] questions. have a good day! Rabia Source: [place] [employer] Document Id: [id number] Electronically signed by Roland [facility] Centerguillermo Video Game Producer [id number] at 02/02/2017 12:38 PM CDT Leilani - [...] x10(9)/L (150 - 450) 12/09/2016 10:15 Syphilis IgG-[place] Negative (Negative - ) 12/09/2016 10:15 HIV 1/2 Ab and Ag Scrn-[place] Negative (Negative - ) 12/09/2016 10:15 Rubella IgG-[place] Equivocal 12/09/2016 10:15 Rubella IgG Ab Index-[place] 0.9 12/09/2016 10:15 Hep Bs Ag-[place] Negative (Negative - ) 12/09/2016 09:45 C trach Amp Src-[place] vagina 12/09/2016 09:45 C trach Amp RNA-[place] Negative (Negative - ) 12/09/2016 09:45 N gonor Amp DNA-[place] Negative (Negative - ) 12/09/2016 09:45 N gonor Amp Src-[place] vagina 12/09/2016 09:45 UA Color Yellow (Colorless [...] (*) Present (None Seen - ) Source: [facility] Document Id: [id number] Electronically signed by Conversion, [facility] CenterBHIVE [employer] Video Game Producer [id number] at 02/02/2017 12:38 PM CDT Miscellaneous - Rabia Reaves R.N. - 12/11/2016 1:15 PM CDT Normal Results Letter December 11, 2016 PUNEET CLAYTON [address] [facility] [id number] Dear PUNEET CLAYTON, Your Pap was normal. Your next pap is due in 3 yrs. Please contact me if you have any questions. Result Name Current Result TELEPHONE SALES REPRESENTATIVE Cytology 12/09/2016 Sincerely, RABIA REAVES [address] [place] [address] Electronic Signature Electronically Signed By: RABIA REAVES CNP, RN On: December 11, 2016 This document has images extracted. Source: [facility] [employer] Document Id: [id number] Miscellaneous - Rabia Reaves, R.N. - 12/09/2016 10:04 AM CDT Ambulatory Patient Summary [facility] [address] [place], [address] [place], [place] [id number] Visit Information Name: FORREST PUNEET ALVARADO [facility] Number: [id number] Current Date: 12/09/2016 10:04:46 Physicians Attending Provider: RABIA REAVES CNP, power lineworker Provider: CATRACHO NAZARIO PA-C PUNEET CLAYTON has [...] dont have one. Go to [email or web address] [email or web address] and click on Create Your Account. Then, follow the directions to complete the online form. Youll be asked for your [facility] number which you can find at the top of this document. Your Goals/Additional instructions: Source: [facility] POWERCHART Document Id: [id number] Leilani - Rabia Reaves R.N. - 12/09/2016 10:04 AM CDT Ambulatory Discharge Medication List [facility] [address], [address] [place], [place] [id number] Visit Information Name: PUNEET CLAYTON [facility] Number: [id number] Current Date: 12/09/2016 10:04:45 Attending Provider: RABIA REAVES CNP, power lineworker Provider: CATRACHO NAZARIO PA-C PUNEET CLAYTON has [...] RN Signed On:09-DEC-2016 10:04:43 Additional Information: Source: [facility] POWERCHART Document Id: [id number] Leilani - Alison Monsivais L.P.N. - 12/09/2016 9:48 AM CDT Conveyor Monitor Documentation Conveyor Monitor Documentation Entered On: 12/09/2016 9:48 CDT Performed On: 12/09/2016 9:48 CDT by ALISON MONSIVAIS LPN Conveyor Monitor Documentation Exam/Procedure Performed : pelvic CD Conveyor Monitor Present : Yes CD Conveyor Monitor Name : ALISON Randall LPN - 12/09/2016 9:48 CDT Source: [facility] POWERCHART Document Id: [id number]!5 documented in this encounter Plan of [...] procedure are in the results section. PATHOLOGY TELEPHONE SALES REPRESENTATIVE Routine 12/09/2016 9:37 AM Results for this CYTOLOGY CDT procedure are i n the results section. documented in this encounter Results CBC without Differential (12/09/2016 10:15 AM CDT) P athologist Signature Leukocytes 7.7 3.5 - 10.5 POWERCHART X109L Erythrocytes 4.88 3.90 - 5.03 POWERCHART D1472L Hemoglobin 13.7 12.0 - 15.5 POWERCHART GDL [...] exposure to syp hilis. Test Performed by: [address] [address] Specimen (Source) Anatomical Collection Method Collection Time Re ceived Time Location / / Volume Laterality Blood 12/09/2016 10:15 AM CDT Rabia Reaves APRN, C.N.P. LAB BLOOD ADD-ON Performing Organization Address City/State/RUST Code Phon e Number POWERCHART Rubella Antibodies, IgG (12/09/2016 10:15 AM CDT) Analysis Performed At Patho logist Time Signature HX Rubella Equivocal POWERCHART IgG-[place] Comment: Recommend follow-up testing in 10-14 day s if clinically indicated. REFERENCE VALUE------ Vaccinated: Positive (>=1.0 AI) Unvaccinated: Negative (<=0.7 AI) Rubella IgG Antibody Index 0.9 POW ERCHART Comment: Test Performed by: [facility] [address] [place] [address] Specimen (Source) Anatomical Collection Method Collection Time Re ceived Time Location / / Volume Laterality Blood 12/09/2016 10:15 AM CDT Rabia Reaves APRN, C.N.P. LAB MICROBIOLOGY - BLOOD ORD ERABLES Performing Organization Address [facility] Phon e Number POWERCHART HIV-1/-2 Ag and Ab Screen (12/09/2016 10:15 AM CDT) athologist Signature HIV-1/-2 Negative Negative POWERCHART Antibody Comment: Negative result does not rule out HIV in fection. If acute HIV infection is suspected in a hi gh-risk individual, submit plasma specimen for H IV-1 RNA quantification test (HIVDQ) and/or HIV-2 DNA/RNA test (FHV2Q). Test Performed by: [address] [address] Specimen (Source) Anatomical Collection Method Collection Time Re ceived Time Location / / Volume Laterality Blood 12/09/2016 10:15 AM CDT Rabia Reaves APRN, C.N.P. LAB MICROBIOLOGY - BLOOD ORD ERABLES Performing Organization Address City/[facility] Phon e Number POWERCHART Hepatitis B Surface Antigen (12/09/2016 10:15 AM CDT) P athologist Signature HBs Antigen, S Negative Negative POWERCHART Comment: Test Performed by: [facility] [address] [address] [place] [address] Specimen (Source) Anatomical Collection Method Collection Time [...] C.N.P. LAB BLOOD ADD-ON Performing Organization Address City/[facility]/ZIP Code Phon e Number POWERCHART ABSC GEL (12/09/2016 10:15 AM CDT) [facility] gist Method Time Signature HX ABSC Gel Negative ABSC POWERCHART Specimen (Source) Anatomical Collection Method Collection Time Re ceived Time Location / / Volume Laterality 12/09/2016 10:15 AM CDT Rabia Apollo Jean Paul RIVERO C.N.P. LAB HISTORICAL ORDERS Performing Organization Address City/[facility]/ZIP Code Phon e Number POWERCHART ABO/Rh (12/09/2016 10:15 AM CDT) athologist Signature ABORh Interp A NEG POWERCHART Specimen (Source) Anatomical Collection Method Collection Time Re ceived Time Location / / Volume Laterality 12/09/2016 10:15 AM CDT Rabia Bustillos Kendal Reaves APRNNBrittaneyPBrittaney LAB BLOOD BANK TEST ORDERABL ES Performing Organization Address [facility]/ZIP Code Phon e Number POWERCHART HX-N gonor Amp DNA (12/09/2016 9:45 AM CDT) P athologist Signature HXN gonor Amp Negative POWERCHART DNA-[place] Specimen (Source) Anatomical Collection Method Collection Time Re ceived Time Location / / Volume Laterality 12/09/2016 9:45 AM CDT Narrative POWERCHART - 12/10/2016 4:54 PM CDT ADDITIONAL INFORMATION This report is intended for use in clini huma monitoring and management of patients. It is not in tended for use in medical-legal applications. Test Performed by: [facility] - [address] [address] Kendal Erazo APRNN.Marcio LAB HISTORICAL ORDERS Performing Organization Address City/[facility]/ZIP Code Phon e Number POWERCHART HX-N gonor Amp Src (12/09/2016 9:45 AM CDT) P athologist Signature HXN gonor Amp vagina POWERCHART Src-[place] Specimen (Source) Anatomical Collection Method Collection Time Re ceived Time Location / / Volume Laterality 12/09/2016 9:45 AM CDT Kendal Erazo APRNN.P. LAB HISTORICAL ORDERS Performing Organization Address City/[facility]/[place]UST Code Phon e Number POWERCHART HX-C trach Amp RNA (12/09/2016 9:45 AM CDT) [facility] gist Method Time Signature Chlamydia Negative [...] APRNN.P. LAB HISTORICAL ORDERS Performing Organization Address City/[facility]/ZIP Code Phon e Number POWERCHART HX-C trach Amp Src (12/09/2016 9:45 AM CDT) P athologist Signature HXC trach Amp vagina POWERCHART Src-[place] Specimen (Source) Anatomical Collection Method Collection Time Re ceived Time Location / / Volume Laterality 12/09/2016 9:45 AM CDT Rabia Reaves APRN C.N.P. LAB HISTORICAL ORDERS Performing Organization Address City/[facility]/ZIP Code Phon e Number POWERCHART (ABNORMAL) Bacterial Culture, Aerobic, Urine (12/09/2016 9:45 AM CDT) Patholo gist Method Time Signature Bacterial EC Susceptibl POWERCHART Culture, (POSITIVE) Aerobic, Urine HXPre URINE, CLEAN POWERCHART VOID HXPre Pending POWERCHART HXPre Pending-[facility] [address] [place] [address] Comment: URINE, CLEAN VOID Pending Pending-[facility] [address] [place] [address] HXPre URINE, CLEAN VOID POWERCHART HXPre >[id number] COL/ML ESCHERICHIA COLI POWERCHART HXPre >[id number] COL/ML MULTIPLE ORGANISMS SUGGESTING PROBABLE POWERCHART CONTAMINATION HXPre PRELIMINARY, FINAL RESULT TO FOLLOW POWERCHART HXPre Pending-[facility] POWERCHART [address] [place] [address] Comment: URINE, CLEAN VOID >[id number] COL/ML ESCHERICHIA COLI >[id number] COL/ML MULTIPLE ORGANISMS SUGGES TING PROBABLE CONTAMINATION PRELIMINARY, FINAL RESULT TO FOLLOW Pending-[facility] [address] [place] [address] HXFinal EC POWERCHART Comment: URINE, CLEAN VOID >[id number] COL/ML ESCHERICHIA COLI >[id number] COL/ML MULTIPLE ORGANISMS SUGGES TING PROBABLE CONTAMINATION FINAL 12/12/2016-[facility] [address] [place] [address] Escherichia coli Specimen (Source) Anatomical Collection Method [...] Performing Organization Address City/[facility] Phon e Number POWERCHART (ABNORMAL) Urinalysis, Complete, Includes Microscopic (12/09/2016 9:45 AM CDT) [facility] Method Time Signature HXUr Color Yellow Colorless [...] Leukocyte Esterase Large (A) Negative POWERCHART Specific [place], POCT, U 1.021 ELANA RCHART Comment: Reference Range Specific [place]: 1.000-1.035 HXUR WBC. 4-10 None Seen HPF [...] C.N.P. LAB URINE ORDERABLES Performing Organization Address [facility] Phon e Number POWERCHART Pathology TELEPHONE SALES REPRESENTATIVE Cytology (12/09/2016 9:37 AM CDT) Specimen (Source) Anatomical Collection Method Collection Time Re ceived Time Location / / Volume Laterality 12/09/2016 9:37 AM CDT Narrative LUZ ELENA MAXWELL - 12/11/2016 11:20 AM CD T Pat: PUNEET CLAYTON ?([id number]) Age/Sex: 30 ??F ??Loc: ? -00 (RWN ) [facility] ??LIUDMILA: 12/09/16 09:37 ??REC: 16:00 ??PHYS: , Cytology ?ThinPrep cervical/endocerv Patient Name: PUNEET CLAYTON MR#: [id number] Submitting Physician: RABIA REAVES HOME APPLIANCE WASHING MACHINE MECHANIC ??[id number] Specimen #[id number] Performing Lab: ??[address] [address] CLINICAL HISTORY: Last menstrual period: Status: Specimen [...] results have been experie nced. Rabia Reaves POCKET MACHINE OPERATOR, C.N.P. LAB PAP COPATH ORDERABLES Performing Organization Address City/State/ZIP Code Phon e Number LUZ ELENA MAXWELL documented in this encounter Visit Diagnoses Not on filedocumented in this encounter Additional Health Concerns Assessment Noted Time PHQ-9 Depression Total Score: 11 12/13/2014 9:50 AM CD T documented as of this encounter
--- OUTSIDE RECORDS SUMMARY | 2022-07-24 08:29 | XMS_ITS | Encounter Summary ---
:1985 Author Organization [facility] Address [address] [place] [address] Care Team Providers Name Role Phone Blaire Bundy P.A.-C. Primary Care Provider [phone] Encounter Details Date Type Department Care Team Description 02/11/2017 Hospital Encounter HX [facility] Marisol Irving APRN, C.N.P. [address] [place] [address] (Wo rk) Social History Tobacco [...] Coding Summary-Paper Based CODING DATE: 02/16/2017 FINAL [facility] STATUS: * Discharged to Home or Self [...] ROLDAN Date Saved: 02/16/2017 11:30 am Source: [facility] POWERCHART Document Id: [id number] Miscellaneous - Marisol Irving CBrittaneyN.P., R.N. - 02/11/2017 4:33 PM CDT Addendum by SOCORRO MARK on February 12, 2017 11:37:11 CDT From: SOCORRO MARK ( Obstetrics/Gynecology Genetics Physician) To: PUNEET CLAYTON Sent: 02/12/2017 11:37:11 CDT [...] From: MARISOL IRVING CNP, RN To: Obstetrics/Gynecology Genetics Physician; PUNEET CLAYTON Sent: 02/11/2017 16:33:06 CDT Puneet, [...] scheduled with your next appointment. Marisol Source: [facility] POWERCHART Document Id: [id number] documented in this encounter Plan of Treatment Not on filedocumented as of this encounter Visit Diagnoses Not on filedocumented in this encounter Additional Health Concerns Assessment Noted Time PHQ-9 Depression Total Score: 11 12/13/2014 9:50 AM CD T documented as of this encounter Care Teams Rn Relief Charge Relationship Specialty Start Date End Date Blaire Bundy P.A.-C. PCP - General 02/04/17 04/26/19 documented as of this encounter
--- OUTSIDE RECORDS SUMMARY | 2022-07-24 08:29 | XMS_ITS | Encounter Summary ---
:1985 Author Organization [facility] Address [address] [place] [address] Care Team Providers Name Role Phone Catracho Bundy P.A.-C. Primary Care Provider Encounter Details Date Type Department Care Team Description 02/22/2017 Hospital Encounter HX [facility] Ashwin Bundy PBrittaneyABrittaney-CBrittaney [address] [place] [address] (Wo rk) Social History Tobacco Use Types [...] How often do you attend zoroastrian or sabianist More than 4 time s [...] NAZARIO PA-C On: 02/24/2017 07:37 AM Source: [facility] POWERCHART Document Id: [id number] Leonora Barrios C.M.A. - 02/22/2017 10:36 AM CDT Eye Services Clinic Exam Eye Services Clinic Exam Entered On: 02/22/2017 10:37 CDT Performed On: 02/22/2017 10:36 CDT by LEONORA BARRIOS [facility] Chief Complaint and History Chief Complaint : Eye pain Pain Symptoms : Yes Smoking Status : Light tobacco smoker LEONORA BARRIOS [facility] - 02/22/2017 10:36 CDT Vision Testing Right Eye Vision Testing : With glasses - primary, 20/25 Left Eye Vision Testing : With glasses - primary, 20/30 Both Eyes Vision Testing : With glasses - primary, 20/25 LEONORA BARRIOS OSTEOPATHIC PHYSICIAN - 02/22/2017 10:36 CDT Pain Scale Pain Scale Verbal 0-10 : Open LEONORA BARRIOS CMA - 02/22/2017 10:36 CDT Pain Pain Assessment Grid Pain 1 Location : Eye Laterality : Left Intensity : 6 LEONORA BARRIOS CMA - 02/22/2017 10:36 CDT Source: [facility] Acsis Document Id: [id number] CDT!17 documented in this encounter Miscellaneous Notes Miscellaneous - Catracho Nazario - 02/22/2017 10:44 AM CDT Work Excuse February 22, 2017 PUNEET FORREST [address] [facility] [id number] Dear PUNEET CLAYTON, You were examined in my office on: 02/22/17 Reason for work excuse: Medical Illness ( X ) Yes ( _ ) No Injury ( _ ) Yes ( _ ) No Is excused from all work: ( X ) Yes ( _ ) No Please excuse Puneet from work today. Sincerely, CATRACHO NAZARIO [id number] [address] Electronic Signature Electronically Signed By: CATRACHO NAZARIO PA-C On: February 22, 2017 This document has images extracted. Source: [facility] Acsis Document Id: [id number] Miscellaneous - Leonora Barrios C.M.ABrittaney - 02/22/2017 10:19 AM CDT Adult Bioinformatics Developer Intake/History Adult Bioinformatics Developer Intake/History Entered On: 02/22/2017 10:23 CDT Performed On: 02/22/2017 10:19 CDT by LEONORA BARRIOS [facility] [address] Intake Chief Complaint : LEFT Eye, yesterday [...] Preferred Communication Mode : Verbal Languages : Greek Is Patient Female and [...] Use/Advised to Quit : Yes LEONORA BARRIOS [facility] - 02/22/2017 10:19 CDT Caffeine Use Grid Caffeine Use : Current Type : Coffee, Soft drinks Frequency : Occasionally LEONORA BARRIOS [facility] - 02/22/2017 10:19 CDT Recreational Drug Use Grid Drug Use : None LEONORA BARRIOS [facility] - 02/22/2017 10:19 CDT Source: [facility] Acsis Document Id: [id number] CDT!58 documented in this encounter Plan of Treatment Not on filedocumented as of this encounter Visit Diagnoses Not on filedocumented in this encounter Additional Health Concerns Assessment Noted Time PHQ-9 Depression Total Score: 11 12/13/2014 9:50 AM CD T documented as of this encounter Care Teams Matrix Inspector Relationship Specialty Start Date End Date Catracho Bundy P.A.-C. PCP - General 02/04/17 04/26/19 documented as of this encounter
--- OUTSIDE RECORDS SUMMARY | 2022-07-24 08:29 | XMS_ITS | Encounter Summary ---
:1985 Author Organization [facility] Address [address] [place] [address] Care Team Providers Name Role Phone Unavailable Primary Care Provider Unavailable Encounter Details Date Type Department Care Team Description 01/13/[address] [facility] Leonora Melchor A PRN, C.N.P. [address] [place], [place] [phone] (Wo rk) Social History [...] often do you attend latter day or sikhism More than 4 time s [...] given to the patient: Patient Education Materials: Safety Scientist Adapting to : Second Trimester Safety Scientist Adapting to : Second Trimester Keep up [...] schedule. Try taking shorter breaks more often. [id number] You Travel The second trimester may be [...] smoke. ?? Dont breathe fumes from nail pitcairn islander, hair spray, cleansers, or other chemicals. ?? [id number] [place] [address]. All rights reserved. This information is not intended as a substitute for professional medical care. Always follow your healthcare professional's instructions. This document has images extracted. Please consider using [employer] for all your patient education needs. Source: [facility] POWERCHART Document Id: [id number] documented in this encounter Miscellaneous Notes Miscellaneous - Leonora Villaseñor R.N. - 01/13/2017 11:31 AM CDT Ambulatory Patient Summary [facility] [address] [place], [place] [phone] Visit Information Name: PUNEET COOLEY [facility] Number: [id number] Current Date: 01/13/2017 11:31:39 Physicians Attending Provider: LEONORA VILLASEÑOR R.N., [facility] Primary Care Provider: CATRACHO NAZARIO PA-C UPNEET COOLEY has been given the following list [...] emergency. Electronically Signed By: LEONORA VILLASEÑOR R.N., [facility] Signed On:13-JAN-2017 11:31:37 Your Allergies & Intolerances Substance Reaction Symptoms Category Comments penicillins Drug Your Problem List Problem Status Onset Comments Headache Migraine Active 01/21/2012 Headache Active 10/24/2007 11/18/13 Headache Dysthymic Disorder Active 08/01/2010 11/18/13 Dysthymic disorder Abuse Tobacco Smoking NOS Active Body Mass Index (BMI) 50.0-59.9 Adult Active Active 10/03/2016 Your Upcoming Appointments Date Time Location Provider 02/11/2017 09:30 [facility] Ultrasound [facility] 1 02/11/2017 10:15 [facility] TACO MAKER Marisol Irving CNP Attention: Contact your local [...] smoke. ?? Dont breathe fumes from nail pitcairn islander, hair spray, cleansers, or other chemicals. ?? 4720-7397 Cecil Paez, [address] [place] [address], [place] [address]. All rights reserved. This information is not [...] if you dont have one. Go to [email or web address] and click on Create Your Account. Then, follow the directions to complete the online form. Youll be asked for your [facility] number which you can find at the top of this document. Your Goals/Additional instructions: This document has images extracted. Please consider using [employer] for all your patient education needs. Source: [facility] POWERCHART Document Id: [id number] Miscellaneous - Leonora Villaseñor R.N. - 01/13/2017 11:31 AM CDT Ambulatory Discharge Medication List [facility] [address] [place], [address] [place], [place] [phone] Visit Information Name: COOLEYDORITAPUNEETCARRIE ALVARADO [facility] Number: [id number] Current Date: 01/13/2017 11:31:38 Attending Provider: LEONORA VILLASEÑOR R.N., [facility] Primary Care Provider: CATRACHO NAZARIO PA-C [...] emergency. Electronically Signed By: LEONORA VILLASEÑOR R.N., [facility] Signed On:13-JAN-2017 11:31:37 Additional Information: Source: [facility] POWERCHART Document Id: [id number] Miscellaneous - Cleopatra Laguerre LBrittaneyP.N. - 01/13/2017 10:18 AM CDT Adult Cordage Sales Representative Intake/History Adult Cordage Sales Representative Intake/History Entered On: 01/13/2017 10:22 CDT Performed [...] Information Given By : Patient Languages : Serbian Is Patient Female and 13-50 no hysterectomy : Yes Status : Confirmed positive Are you ? : No CLEOPATRA LAGUERRE LPN - 01/13/2017 10:18 CDT Subjective Pain Symptoms : No CLEOPATRA LAGUERRE [facility] - 01/13/2017 10:18 CDT Dependent Habits Exposure to Tobacco Smoke : Patient smokes Smoking Status : Former smoker Tobacco 2A : Yes Tobacco Use/Currently Using : No Tobacco Use/Last 30 Days : No Tobacco Use/Last 12 months : Yes Tobacco Last Use/Month : November Tobacco Last Use/Year : 2016 Type : Other: quit 11/2016 CLEOPATRA LAGUERRE [facility] - 01/13/2017 10:18 CDT Caffeine Use Grid Caffeine Use : Current Type : Coffee, Soft drinks Frequency : Occasionally CLEOPATRA LAGUERRE [facility] 01/13/2017 10:18 CDT Recreational Drug Use Grid Drug Use : None CLEOPATRA LAGUERRE [facility] 01/13/2017 10:18 CDT Source: Primary Data Document Id: [id number] CDT!42 documented in this encounter Plan of Treatment Not on filedocumented as of this encounter Visit Diagnoses Not on filedocumented in this encounter Additional Health Concerns Assessment Noted Time PHQ-9 Depression Total Score: 11 12/13/2014 9:50 AM CD T documented as of this encounter
--- OUTSIDE RECORDS SUMMARY | 2022-07-24 08:29 | XMS_ITS | Encounter Summary ---
:1985 Author Organization [facility] Address [address] [place] [address] Care Team Providers Name Role Phone Unavailable Primary Care Provider Unavailable Encounter Details Date Type Department Care Team Description 01/08/2017 Hospital En[facility] [address] [place] [phone] (Wo rk) Social History Tobacco Use [...] How often do you attend tenriism or confucianism More than 4 time s [...] 13:39:18 CDT From: LEONORA HOLMAN MD To: [place] [facility] Nurse Amarilys; Sent: 01/08/2017 13:39:18 CDT Subject: RE: *General Message Looks okay. Just needs to follow up with OB next week. ThanksLeonora From: CRAIG TOLENTINO LPN ([facility] Nurse Panda) To: LEONORA HOLMAN MD; Sent: 01/08/2017 08:58:35 CDT Subject: *General Message Patient came in for BP check and was seen by you yesterday in the clinic. Today's BP 139/78 Pulse-100 137/75 Pulse-91 Please advise. Thank you. Source: [facility] POWERCHART Document Id: [id number] Electronically signed by Conversion, [facility] Microsoft Application Developer [id number] at 02/01/2017 11:08 PM CDT Miscellaneous - [...] TOLENTINO LPN - 01/08/2017 8:53 CDT Source: [employer] [place] Document Id: [id number] CDT!11 Miscellaneous - Craig Tolentino, L.P.N. - [...] TOLENTINO LPN - 01/08/2017 8:50 CDT Source: [employer] [place] Document Id: [id number] CDT!9 documented in this encounter Plan of Treatment Not on filedocumented as of this encounter Visit Diagnoses Not on filedocumented in this encounter Additional Health Concerns Assessment Noted Time PHQ-9 Depression Total Score: 11 12/13/2014 9:50 AM CD T documented as of this encounter
--- OUTSIDE RECORDS SUMMARY | 2022-07-24 08:29 | XMS_ITS | Encounter Summary ---
:1985 Author Organization [facility] Address [address] [place] [address] Care Team Providers Name Role Phone Catracho Bundy P.A.-C. Primary Care Provider [phone] Encounter Details Date Type Department Care Team Description 05/30/2017 Hospital Encounter HX [facility] Rai Landaverde M.D. [address] [place] [address] (Wo rk) Social History Tobacco [...] often do you attend jehovah's witness or confucianist More than 4 time s [...] BERNAL RN - 05/30/2017 16:34 CDT Source: [facility] POWERCHART Document Id: [id number] CDT!19 Shiela Bernal R.N. - 05/30/2017 4:07 PM CDT Hospital Discharge Instructions [address] [id number] Patient Discharge Instructions Name: FORREST PUNEET CHRISTIANO Current Date: 05/30/2017 16:07:19 : 1985 12:00 AM [facility] Number: [id number] Patient Address: [address] [place] [phone] Patient Primary Care Provider: Name: CATRACHO NAZARIO Briana WHITING Discharge Diagnosis: [facility] would like to thank you for allowing [...] Appointments Date Time Location Provider 06/08/2017 09:00 [facility] BOWLING BALL WEIGHER AND PACKER Jean Paul MONTEMAYOR, Leonora Bustillos Consider Using [...] if you dont have one. Go to [email or web address] and click on Create Your Account. Then, follow the directions to complete the online form. Youll be asked for your [facility] number which you can find at the [...] will start right away. You may feel Marietta Ling contractions (false labor). These irregular contractions start to soften and thin the cervix. Many women mistake these contractions for true labor. They may be more noticable towards the end of the day. Feeling like the baby has dropped lower. In preparation for , the baby's head has settled deep into your pelvis. ?? 1175-5768 [facility], [address] [place] [address], [place] [address]. All rights reserved. This information is not [...] felt your baby move all day. ?? 3422-9977 [facility], [address] [place] [address], [place] [address]. All rights reserved. This information is not intended as a substitute for professional medical care. Always follow your healthcare professional's instructions. This document has images extracted. Please consider using [employer] for all your patient education needs. Source: [facility] POWERCHART Document Id: [id number] Shiela Bernal R.N. - 05/30/2017 4:07 PM CDT Hospital Discharge Medication List [address] [address] Discharge Medication List Name: PUNEET LCAYTON Current Date: 05/30/2017 16:07:18 : 1985 12:00 AM [facility] Number: [id number] Patient Address: [address] [place] [phone] Patient Primary Care Provider: Name: CATRACHO NAZARIO PA-C Discharge Diagnosis: [facility] would like to thank you for allowing [...] Comment: Electronically Signed By: Signed On: Source: [facility] [employer] Document Id: [id number] documented in this encounter Medications at Time [...] ASHLEY RN - 05/30/2017 16:28 CDT Source: [facility] [employer] Document Id: [id number] CDT!3 Shiela Bernal R.N. - 05/30/2017 3:45 PM CDT Ongoing Assessment Antepartum Ongoing Assessment Antepartum Entered On: 05/30/2017 16:31 CDT Performed On: 05/30/2017 15:45 CDT by SHIELA BERNAL academic assistant Chief Complaint : decreased movement last few [...] Yes/No : No Nail Bed Color : [place] Capillary Refill : Less than 2 seconds [...] None SHIELA BERNAL RN 05/30/2017 16:29 CDT Diamond Coma Eye Opening Response Jenise : Spontaneously Best Verbal Response Diamond : Oriented Best Motor Response Diamond : Obeys simple commands Diamond Coma Score : 15 SHIELA BERNAL RN [...] Integrity : Intact Mucous Membrane Color : [place] Mucous Membrane Description : Moist Skin Color [...] BERNAL RN - 05/30/2017 16:29 CDT Source: [employer] Document Id: [id number] CDT!107 documented in this encounter Miscellaneous Notes Miscellaneous - Conversion, Historical Provider Ser - 05/30/2017 4:15 PM CDT Coding Summary-Paper Based CODING DATE: 05/31/2017 FINAL RW [facility] STATUS: * Discharged to Home or [...] ROLDAN Date Saved: 05/31/2017 10:39 am [facility] Document Id: [id number] documented in this encounter Plan of Treatment Not on filedocumented as of this encounter Visit Diagnoses Not on filedocumented in this encounter Additional Health Concerns Assessment Noted Time PHQ-9 Depression Total Score: 7 04/07/2017 9:39 AM CDT documented as of this encounter Care Teams [address] Pressman Relationship Specialty Start Date End Date Catracho Bundy P.A.-C. PCP - General 02/04/17 04/26/19 documented as of this encounter
--- OUTSIDE RECORDS SUMMARY | 2022-07-24 08:29 | XMS_ITS | Encounter Summary ---
:1985 Author Organization [facility] Address [address] [place] [address] Care Team Providers Name Role Phone Catracho Bundy P.A.-C. Primary Care Provider Encounter Details Date Type Department Care Team Description 03/11/2017 Hospital Encounter HX [facility] Leonora Melchor, Maureen TARIQ, C.N.P. [address] [place], [place] [phone] (Wo rk) Social History [...] How often do you attend religious or lutheran More than 4 time s [...] Miscellaneous Notes Miscellaneous - Leonora Villaseñor R.N., [facility] - 03/11/2017 3:28 PM CDT Ambulatory Discharge Medication List [facility] [address] [place], [address] [place], [place] [phone] Visit Information Name: PUNEET COOLEY [facility] Number: [id number] Current Date: 03/11/2017 15:28:15 Attending Provider: LEONORA VILLASEÑOR R.N., [facility] Primary Care Provider: CATRACHO NAZARIO PA-C [...] WHNP-BC Signed On:11-MAR-2017 15:28:14 Additional Information: Source: [facility] POWERCHART Document Id: [id number] Miscellaneous - Leonora Villaseñor R.N., WHNP-BC - 03/11/2017 3:28 PM CDT Ambulatory Patient Summary [facility] [address] [place], [address] [place], [place] [phone] Visit Information Name: PUNEET COOLEY [facility] Number: [id number] Current Date: 03/11/2017 15:28:15 Physicians Attending Provider: LEONORA VILLASEÑOR R.N., WHNP-BC Primary Care Provider: CATRACHO NAZARIO PA-C PNUEET COOLEY has been given the following list [...] Appointments Date Time Location Provider 04/07/2017 09:00 [facility] LICENSED INSURANCE SALES AGENT Leonora Villaseñor NP Attention: Contact your local [...] if you dont have one. Go to [email or web address] and click on Create Your Account. Then, follow the directions to complete the online form. Youll be asked for your [facility] number which you can find at the top of this document. Your Goals/Additional instructions: Source: [facility] POWERCHART Document Id: [id number] Miscellaneous - Dawna Madera L.P.NBrittaney - 03/11/2017 2:39 PM CDT Adult Viner Operator Intake/History Adult Viner Operator Intake/History Entered On: 03/11/2017 14:43 CDT Performed [...] MADERA L.P.N. - 03/11/2017 14:39 CDT Source: [facility] [employer] Document Id: [id number] CDT!40 documented in this encounter Plan of [...] exposure to syp hilis. Test Performed by: [place] [id number] Specimen (Source) Anatomical Collection Method Collection Time Re ceived Time Location / / Volume Laterality Blood 03/11/2017 2:24 PM CDT Marisol Irving APRN, C.N.P. LAB BLOOD ADD-ON Performing Organization Address City/[facility] Code Phon e Number POWERCHART POWERCHART NA (ABNORMAL) CBC without Differential (03/11/2017 2:24 PM CDT) Analysis Performed At Patho logist Time Signature Leukocytes 9.6 3.5 - 10.5 POWERCHART X109L Erythrocytes 3.95 3.90 - POWERCHART 5.03 [id number] Hemoglobin 11.6 (L) 12.0 - POWERCHART 15.5 [...] C.N.P. LAB BLOOD ADD-ON Performing Organization Address City/[facility]/ZIP Code Phon e Number POWERCHART POWERCHART NA [...] C.N.P. LAB BLOOD ADD-ON Performing Organization Address City/[facility]/ZIP Code Phon e Number POWERCHART POWERCHART NA documented in this encounter Visit Diagnoses Not on filedocumented in this encounter Additional Health Concerns Assessment Noted Time PHQ-9 Depression Total Score: 11 12/13/2014 9:50 AM CD T documented as of this encounter Care Teams Collar Cutter Relationship Specialty Start Date End Date Catracho Bundy P.A.-C. PCP - General 02/04/17 04/26/19 documented as of this encounter
--- OUTSIDE RECORDS SUMMARY | 2022-07-24 08:29 | XMS_ITS | Encounter Summary ---
:1985 Author Organization [facility] Address [address] [place] [address] Care Team Providers Name Role Phone Blaire [...] documented as of this encounter Care Teams Heating And Ventilating Tender Relationship Specialty Start Date End Date Blaire Bundy P.A.-C. PCP - General 02/04/17 04/26/19 documented as of this encounter
--- OUTSIDE RECORDS SUMMARY | 2022-07-24 08:29 | XMS_ITS | Encounter Summary ---
:1985 Author Organization [facility] Address [address] [place] [address] Care Team Providers Name Role Phone Unavailable Primary Care Provider Unavailable Encounter Details Date Type Department Care Team Description 01/07/[address] [facility] [address] [place] [phone] (Wo rk) Social History Tobacco Use [...] How often do you attend gnosticism or roman catholic More than 4 time [...] Ordered: OV Est Pt Level 4 - 88590 - 25 min 2. Elevated Blood Pressure [...] Ordered: OV Est Pt Level 4 - 73609 - 25 min 3. High Risk NOS As per #2. Recommended f/u with OB. Ordered: OV Est Pt Level 4 - 87987 - 25 min Cough NOS Infection Urinary [...] HOLMAN MD On: 01/14/2017 06:39 AM Source: [facility] POWERCHART Document Id: [id number] documented in this encounter H&P Notes Puneet Lewis, R.N. - 01/07/2017 10:41 AM CDT Puneet Lewis RN, [employer] Nurse Practitioner Residency [...] PRN Allergies: penicillins Environmental/Occupational Conditions: Works in [employer] at a [employer]. Social History: Patient reports smoking cessation about [...] HOLMAN MD On: 01/24/2017 09:59 PM Source: [facility] Plixi Document Id: [id number] documented in this encounter Miscellaneous Notes Miscellaneous [...] care. Thanks, Puneet Lewis (DNP student) Source: [facility] Plixi Document Id: [id number] Miscellaneous - Leonora Holman M.D. - 01/07/2017 10:03 AM CDT Ambulatory Patient Summary [address] [place] [id number] Visit Information Name: PUNEET CLAYTON [facility] Number: [phone] Current Date: 01/07/2017 10:03:11 Physicians [...] if you dont have one. Go to [email or web address] and click on Create Your Account. Then, follow the directions to complete the online form. Youll be asked for your [facility] number which you can find at the top of this document. Your Goals/Additional instructions: Source: [facility] POWERCHART Document Id: [id number] Miscellrenee - Leonora Holman M.D. - 01/07/2017 10:03 AM CDT Ambulatory Discharge Medication List [address] [place] [phone] Visit Information Name: PUNEET CLAYTON [facility] Number: [id number] Current Date: 01/07/2017 10:03:10 Attending [...] MD Signed On:07-JAN-2017 10:01:26 Additional Information: Source: [facility] POWERCHART Document Id: [id number] Leilani - Leonora Holman M.D. - 01/07/2017 10:01 AM CDT Work Excuse January 07, 2017 PUNEET CLAYTON [address] [place] [id number] Dear PUNEET CLAYTON, You were examined in [...] due to acute illness. Sincerely, LEONORA ABAD [address] [place] [address] Electronic Signature Electronically Signed By: LEONORA HOLMAN MD On: January 07, 2017 This document has images extracted. Source: [facility] Plixi Document Id: [id number] Miscellaneous - Roosevelt Louise L.P.N. - 01/07/2017 [...] LOUISE LPN - 01/07/2017 8:55 CDT [facility] Document Id: [id number] CDT!8 Miscellaneous - Roosevelt Louise L.P.N. - 01/07/2017 8:51 AM CDT Adult City Comptroller Intake/History Document Has Been Updated Adult City Comptroller Intake/History Entered On: 01/07/2017 8:54 CDT Performed On: 01/07/2017 8:51 CDT by DANI, ROOSEVELT L PNEUMATIC SYSTEMS OPERATOR Intake Chief Complaint : URI for 1 month Cough productive green 14-15 weeks preg Would like note to be off work DANIROOSEVELT MENDOZA Apollo PNEUMATIC SYSTEMS OPERATOR - 01/07/2017 8:59 CDT Temperature Core [...] 2 inch(es), 62 inch(es)) DANIROOSEVELT MENDOZA Apollo PNEUMATIC SYSTEMS OPERATOR - 01/07/2017 8:51 CDT General Info Information Given By : Patient Languages : Tristanian Is Patient Female and 13-50 no hysterectomy : No DNAIROOSEVELT Apollo RODRIGUEZN - 01/07/2017 8:51 CDT Subjective [...] LOUISE LPN - 01/07/2017 8:51 CDT [facility] Document Id: [id number] CDT!3 documented in this encounter Plan of [...] M.D. LAB URINE ORDERABLES Performing Organization Address City/[facility] Phon e Number POWERCHART (ABNORMAL) Urinalysis, Routine (01/07/2017 9:21 AM CDT) P athologist Signature Clarity Clear Clear POWERCHART HXUr Color Yellow Colorless POWERCHART Specific 1.010 POWERCHART [place], POCT, U Comment: Reference Range Specific [place]: 1.000-1.035 pH, POCT, Urine 6.0 <5.0 POWERCHART [...] LAB URINE ORDERABLES Performing Organization Address City/State/[facility] Phon e Number POWERCHART documented in this encounter Visit Diagnoses Not on filedocumented in this encounter Additional Health Concerns Assessment Noted Time PHQ-9 Depression Total Score: 11 12/13/2014 9:50 AM CD T documented as of this encounter
--- OUTSIDE RECORDS SUMMARY | 2022-07-24 08:29 | XMS_ITS | Encounter Summary ---
:1985 Author Organization [facility] Address [address] [place] [address] Care Team Providers Name Role Phone Blaire Bundy P.A.-C. Primary Care Provider Reason for Visit Reason Comments Sore Throat sore throat since Wednesday, no fever, no bodyaches, headaches, dry cough Appointment Request (Routine) - Incomplete Specialty Diagnoses / Procedures Referred By Contact Refer red To Contact Referral ID Status Reason Start Date Expiration Date Visits V isits Requested Authorized [id number] Incomplete 08/02/2017 01/29/2018 1 1 Encounter Details Date Type Department Care Team Description 08/03/2017 Office Visit Department of [facility] Erin Bundy P.A.-C. [address] [place] [address] Sore Throat (Primary Dx); Medicine, Deb Brown, AIRCRAFT INSPECTOR, C.N.P. [address] [place] [address] [facility], in [address] [phone] Social History Tobacco Use Types [...] How often do you attend caodaism or jainism More than 4 time s [...] Comments Blood Pressure 139/65 08/03/2017 8:38 AM CLINIC BUSINESS MANAGER Pulse 79 08/03/2017 8:38 AM CLINIC BUSINESS MANAGER Temperature 36.3 ??C (97.3 ??F) 08/03/2017 8:38 AM CLINIC BUSINESS MANAGER Respiratory Rate 16 08/03/2017 8:38 AM CLINIC BUSINESS MANAGER Oxygen Saturation 98% 08/03/2017 8:38 AM CLINIC BUSINESS MANAGER Inhaled Oxygen Concentration - - Weight 147 kg (323 lb 10.2 oz) 08/03/2017 8:38 AM CLINIC BUSINESS MANAGER Height 158 cm (5' 2.21) 08/03/2017 8:38 AM CLINIC BUSINESS MANAGER Body Mass Index 58.8 08/03/2017 8:38 AM CLINIC BUSINESS MANAGER documented in this encounter Progress Notes Deb [...] viral illness. She was instructed to use wwjb-beb-[id number] pain analgesics and increased fluids for symptom management. We discussed the use of honey as needed for symptom management. She was instructed to contact the clinic with worsening or no improvement in symptoms. All questions were answered. She left in no acute distress. Deb Enamorado C.N.P., R.N. IC BUSINESS MANAGER documented in this encounter Plan of Treatment Not on filedocumented as of this encounter Procedures Procedure Name Priority Date/Time Associated Diagnosis Comme nts BACTERIAL CULTURE, Routine 08/03/2017 4:12 PM Res ults for this THROAT CLINIC BUSINESS MANAGER procedure are i n the results section. RAPID STREP A Routine 08/03/2017 9:27 AM Sore Throat Results for this SCREEN CLINIC BUSINESS MANAGER procedure are i n the results section. documented in this encounter Results Bacterial Culture, Throat (08/03/2017 4:12 PM CLINIC BUSINESS MANAGER) [facility] Method Time Signature Throat No growth of 08/05/2017 [facility] Culture Streptococcus 6:38 AM CLINIC BUSINESS MANAGER [facility] pyogenes [facility] LAB Specimen Anatomical Collection Method Collection Time Receive d Time (Source) Location / / Volume Laterality Throat Swab 08/03/2017 4:12 PM 7 4:12 CLINIC BUSINESS MANAGER PM CLINIC BUSINESS MANAGER Deb Enamorado APRN, C.N.P. LAB MICROBIOLOGY - GENE RAL ORDERABLES Performing Organization Address City/[facility]/ZIP Code Phon e Number [facility] [address] [place] [address], [place] [address] [facility] Rapid Strep A Screen Throat (08/03/2017 9:27 AM CLINIC BUSINESS MANAGER) athologist Signature Rapid Strep A Negative Negative 08/03/2017 [facility] Screen 9:52 AM [facility] LAB Specimen Anatomical Collection Method Collection Time Receive d Time (Source) Location / / Volume Laterality Varies (Throat) 08/03/2017 9:27 AM 2016 9:36 CLINIC BUSINESS MANAGER AM CLINIC BUSINESS MANAGER Deb Enamorado APRN, C.N.P. LAB MICROBIOLOGY - GENE RAL ORDERABLES Performing Organization Address City/[facility]/ZIP Code Phon e Number [facility]- [address] [place] [phone] [place] [address] LAB documented in this encounter Visit Diagnoses Diagnosis Sore Throat - Primary Cough Unspecified Type documented in this encounter Additional Health Concerns Assessment Noted Time PHQ-9 Depression Total Score: 7 04/07/2017 9:39 AM CDT documented as of this encounter Care Teams Sealant Mixer Relationship Specialty Start Date End Date Blaire Bundy P.A.-C. PCP - General 02/04/17 04/26/19 documented as of this encounter
--- OUTSIDE RECORDS SUMMARY | 2022-07-24 08:29 | XMS_ITS | Encounter Summary ---
:1985 Author Organization [facility] Address [address] [place] [address] Care Team Providers Name Role Phone Blaire [...] How often do you attend christianity or baptist More than 4 time s [...] Organization Address City/State/ZIP Code Phon e Number IICT IICT NA documented in this encounter Visit Diagnoses Not on filedocumented in this encounter Additional Health Concerns Assessment Noted Time PHQ-9 Depression Total Score: 7 04/07/2017 9:39 AM CDT documented as of this encounter Care Teams Crew Car Driver Relationship Specialty Start Date End Date Blaire Bundy P.A.-C. PCP - General 02/04/17 04/26/19 documented as of this encounter
--- OUTSIDE RECORDS SUMMARY | 2022-07-24 08:29 | XMS_ITS | Encounter Summary ---
:1985 Author Organization [facility] Address [address] [place] [address] Care Team Providers Name Role Phone Catracho Bundy P.A.-C. Primary Care Provider Encounter Details Date Type Department Care Team Description 06/08/2017 Hospital Encounter [facility] Leonora Melchor, Maureen TARIQ, C.N.P. [address] [place], [place] [phone] [...] How often do you attend scientologist or amish More than 4 time s [...] status: none position: vertex via ultrasound in mooers. Electronically Signed By: LEONORA VILLASEÑOR R.N., WHNP-BC On: 06/08/2017 09:29 AM Source: [facility] POWERCHART Document Id: [id number] documented in this encounter Nursing Notes VoCleopatra corona L.P.N. - 06/08/2017 9:02 AM CDT Ambulatory Patient Education The following Patient Education Materials have been given to the patient: Patient Education Materials: Technician Automatic What Is Group B Strep? Technician Automatic What Is Group B Strep? Group B [...] with a group B strep infection ?? [id number] [facility], [address] [place] [address], [place] [address]. All rights reserved. This information is not intended as a substitute for professional medical care. Always follow your healthcare professional's instructions. This document has images extracted. Please consider using [employer] for all your patient education needs. Source: [facility] POWERCHART Document Id: [id number] documented in this encounter Miscellaneous Notes Miscellaneous - Leonora Villaseñor R.N., WHNP-BC - 06/08/2017 9:39 AM CDT Ambulatory Discharge Medication List [address] [facility] [address] [place], [place] [phone] Visit Information Name: PUNEET COOLEY [facility] Number: [id number] Current Date: 06/08/2017 09:39:23 Attending Provider: LEONORA VILLASEÑOR R.N., [facility] Primary Care Provider: CATRACHO NAZARIO [...] WHNP-BC Signed On:08-JUN-2017 09:39:20 Additional Information: Source: [facility] POWERCHART Document Id: [id number] Miscellaneous - Leonora Villaseñor R.N., WHNP-BC - 06/08/2017 9:39 AM CDT Ambulatory Patient Summary [facility] [address], [address] [place], [place] [phone] Visit Information Name: PUNEET COOLEY [facility] Number: [id number] Current Date: 06/08/2017 09:39:23 [...] with a group B strep infection ?? [id number] [place] [address]. All rights reserved. This information is not [...] if you dont have one. Go to [email or web address] and click on Create Your Account. Then, follow the directions to complete the online form. Youll be asked for your [facility] number which you can find at the top of this document. Your Goals/Additional instructions: This document has images extracted. Please consider using [employer] for all your patient education needs. Source: [facility] POWERCHART Document Id: [id number] Miscellaneous - Cleopatra Laguerre L.P.N. - 06/08/2017 9:05 AM CDT Adult Sports Medicine Trainer Intake/History Adult Sports Medicine Trainer Intake/History Entered On: 06/08/2017 9:10 CDT Performed [...] LAGUERRE LPN - 06/08/2017 9:05 CDT [facility] POWERCH[facility] Document Id: [id number] CDT!50 documented in this encounter Plan of Treatment Not on filedocumented as of this encounter Visit Diagnoses Not on filedocumented in this encounter Additional Health Concerns Assessment Noted Time PHQ-9 Depression Total Score: 7 04/07/2017 9:39 AM CDT documented as of this encounter Care Teams Adventure Challenge Instructor Relationship Specialty Start Date End Date Catracho Bundy P.A.-C. PCP - General 02/04/17 04/26/19 documented as of this encounter
--- OUTSIDE RECORDS SUMMARY | 2022-07-24 08:29 | XMS_ITS | Encounter Summary ---
:1985 Author Organization [facility] Address [address] [place] [address] Care Team Providers Name Role Phone Blaire Bundy P.A.-C. Primary Care Provider [phone] Encounter Details Date Type Department Care Team Description 03/11/2017 Hospital Encounter HX [facility] Leonora Reaves, PLANT PROTECTION OFFICER, C.N.P. [address] [place] [phone] (Wo rk) Social History Tobacco [...] How often do you attend scientologist or yarsanism More than 4 time s [...] Coding Summary-Paper Based CODING DATE: 03/16/2017 FINAL [facility] STATUS: * Discharged to [...] ROLDAN Date Saved: 03/16/2017 02:50 pm Source: [facility] POWERCHART Document Id: [id number] documented in this encounter Plan of Treatment Not on filedocumented as of this encounter Visit Diagnoses Not on filedocumented in this encounter Additional Health Concerns Assessment Noted Time PHQ-9 Depression Total Score: 11 12/13/2014 9:50 AM CD T documented as of this encounter Care Teams Ward Supervisor Relationship Specialty Start Date End Date Blaire Bundy P.A.-C. PCP - General 02/04/17 04/26/19 documented as of this encounter
--- OUTSIDE RECORDS SUMMARY | 2022-07-24 08:29 | XMS_ITS | Encounter Summary ---
:1985 Author Organization [facility] Address [address] [place] [address] Care Team Providers Name Role Phone Blaire Bundy P.A.-C. Primary Care Provider Encounter Details Date Type Department Care Team Description 04/07/2017 Hospital Encounter [facility] Leonora Melchor, Maureen TARIQ, C.N.P. [address] [place], [place] [phone] (Wo rk) Social History [...] How often do you attend tenriism or hindu More than 4 time s [...]
--- OUTSIDE RECORDS SUMMARY | 2022-07-24 08:29 | XMS_ITS | Encounter Summary ---
:1985 Author Organization [facility] Address [address] [place] [address] Care Team Providers Name Role Phone Blaire [...] Expiration Date Visits Requ ested Visits Authorized [id number] 1 1 Encounter Details Date Type Department Care Team Description 09/08/[address] [facility] MAIN OR Jaquan Monahan, LAPAROSCOPIC [address] D.OBrittaney APPENDECTOMY NEHEMIAH GRANT [phone] 1200 [facility] carlos W [phone] NEHEMIAH Nix [phone] (Wo rk) Social History [...] How often do you attend worship or sabianism More than 4 time s [...] Comments Blood Pressure 143/71 09/08/2017 2:13 PM HOTEL OR MOTEL ROOM SERVICE SUPERVISOR Pulse 116 09/08/2017 2:13 PM HOTEL OR MOTEL ROOM SERVICE SUPERVISOR Temperature 36.9 ??C (98.4 ??F) 09/08/2017 2:13 PM HOTEL OR MOTEL ROOM SERVICE SUPERVISOR Respiratory Rate 16 09/08/2017 2:13 PM HOTEL OR MOTEL ROOM SERVICE SUPERVISOR Oxygen Saturation 96% 09/08/2017 2:13 PM HOTEL OR MOTEL ROOM SERVICE SUPERVISOR Inhaled Oxygen Concentration - - Weight 145 kg (319 lb 10.7 oz) 09/08/2017 2:13 PM HOTEL OR MOTEL ROOM SERVICE SUPERVISOR Height 157.5 cm (5' 2) 09/08/2017 10:09 AM HOTEL OR MOTEL ROOM SERVICE SUPERVISOR Body Mass Index 58.47 09/08/2017 10:09 AM HOTEL OR MOTEL ROOM SERVICE SUPERVISOR documented in this encounter Discharge Summaries Seng Reyna M.D. - 09/09/2017 9:51 AM CST INPATIENT DISCHARGE SUMMARY BRIEF OVERVIEW Discharge Provider: Taryn Ozuna M.D. Primary Care Providers: Blaire Thornton P.A.-C. (General) [address] [place] [phone] Primary Care Provider Primary Care Provider Other Providers: Admission Date: 09/08/2017 Discharge Date: 09/09/2017 PRINCIPAL DIAGNOSIS Appendicitis Acute SECONDARY DIAGNOSES Principal Problem: Appendicitis Acute Resolved Problems: * No resolved hospital problems. * Operative Procedures: Scheduled (Blank), Completed (Comp) or Canceled (Can) Case IDs Date Procedure Surgeon Location Status [id number] 09/08/17 LAPAROSCOPIC APPENDECTOMY Jaquan Monahan D.O. [facility] OR Comp DISCHARGE DISPOSITION Home or Self Care [1] ACTIVE ISSUES REQUIRING FOLLOW UP Surgical Pathology OUTPATIENT FOLLOW UP No future appointments. TEST RESULTS PENDING AT DISCHARGE Pending Labs Order Current Status Pathology Services Collected (09/08/17 4143) DISCHARGE MEDICATIONS Your medication list START taking [...] Your Medications These medications were sent to [facility] [address] [address] ?? ciprofloxacin 500 mg tablet ?? metroNIDAZOLE [...] ADMISSION ANESTHESIA FOLLOW-UP CONDITION AT DISCHARGE improved L OR MOTEL ROOM SERVICE SUPERVISOR documented in this encounter Discharge Instructions AttachmentsThe following attachments cannot be sent through Care Everywhere.Care Following Your Laparoscopy (Pakistani)documented in this encounter Medications at Time of [...] /or at baseline Post Op nausea/vomiting: none L OR MOTEL ROOM SERVICE SUPERVISOR documented in this encounter H&P Notes Jaquan [...] or fallopian tube. She gives informed consent. L OR MOTEL ROOM SERVICE SUPERVISOR documented in this encounter Nursing Notes Kiera [...] mucous membranes remain intact Adequate for Discharge L OR MOTEL ROOM SERVICE SUPERVISOR Suni Perales R.N. - 09/09/2017 2:12 AM [...] this is a recent diagnosis for her. L OR MOTEL ROOM SERVICE SUPERVISOR Charline Lundberg R.N. - 09/08/2017 9:42 PM [...] o-1 Refuses pain medication at this time L OR MOTEL ROOM SERVICE SUPERVISOR documented in this encounter OR Notes Op Note - Jaquan Monahan D.O. - 09/08/2017 4:35 PM CST FULL OP NOTE Procedure(s): LAPAROSCOPIC APPENDECTOMY Surgeon(s) and Role: * Jaquan Monahan D.O. - Primary Gear Cutting Machine Set Up Operator: Mandi Santoyo L.P.N.; Nichole Allen L.P.N. [...] implants in log * Jaquan Monahan D.O. L OR MOTEL ROOM SERVICE SUPERVISOR Brief Op Note - Jaquan Monahan D.O. [...] implants in log * Jaquan Monahan D.O. L OR MOTEL ROOM SERVICE SUPERVISOR documented in this encounter ED Notes Dimitri [...] for admission. He will contact the nursing cellars supervisor to determine a plan of when [...] was going to talk with the nursing cellars supervisor and the operating room about the [...] accurate and complete. Dimitri Car M.D. 09/08/172138 L OR MOTEL ROOM SERVICE SUPERVISOR documented in this encounter Plan of Treatment Scheduled Referrals Name Type Priority Associated Diagnoses Order S [facility] General Surgery Outpatient Referral Routine Appendicitis Acute Expected: Post Op (clinic) 09/15/2017 (Approximate), Expires: 09/09/2020 documented as of this encounter Procedures Procedure Name Priority Date/Time Associated Comments Diagnosis CBC WITH Routine 09/09/2017 7:05 Results for DIFFERENTIAL, B AM HOTEL OR MOTEL ROOM SERVICE SUPERVISOR this procedu re are in the results section. INCENTIVE Routine 09/08/2017 6:39 SPIROMETRY - RT/RN PM HOTEL OR MOTEL ROOM SERVICE SUPERVISOR INCENTIVE Routine 09/08/2017 6:39 SPIROMETRY - RT/RN PM HOTEL OR MOTEL ROOM SERVICE SUPERVISOR INCENTIVE Routine 09/08/2017 6:39 SPIROMETRY - RT/RN PM HOTEL OR MOTEL ROOM SERVICE SUPERVISOR INCENTIVE Routine 09/08/2017 6:39 SPIROMETRY - RT/RN PM HOTEL OR MOTEL ROOM SERVICE SUPERVISOR INCENTIVE Routine 09/08/2017 6:39 SPIROMETRY - RT/RN PM HOTEL OR MOTEL ROOM SERVICE SUPERVISOR INCENTIVE Routine 09/08/2017 6:39 SPIROMETRY - RT/RN PM HOTEL OR MOTEL ROOM SERVICE SUPERVISOR INCENTIVE Routine 09/08/2017 6:39 SPIROMETRY - RT/RN PM HOTEL OR MOTEL ROOM SERVICE SUPERVISOR INCENTIVE Routine 09/08/2017 6:39 SPIROMETRY - RT/RN PM HOTEL OR MOTEL ROOM SERVICE SUPERVISOR INCENTIVE Routine 09/08/2017 6:39 SPIROMETRY - RT/RN PM HOTEL OR MOTEL ROOM SERVICE SUPERVISOR INCENTIVE Routine 09/08/2017 6:39 SPIROMETRY - RT/RN PM HOTEL OR MOTEL ROOM SERVICE SUPERVISOR INCENTIVE Routine 09/08/2017 6:39 SPIROMETRY - RT/RN PM HOTEL OR MOTEL ROOM SERVICE SUPERVISOR ADULT OXYGEN Routine 09/08/2017 5:43 THERAPY PM HOTEL OR MOTEL ROOM SERVICE SUPERVISOR PATHOLOGY SERVICES Routine 09/08/2017 5:08 Appendicitis Acute Results for PM HOTEL OR MOTEL ROOM SERVICE SUPERVISOR this procedure are in the results section. LAPAROSCOPIC 09/08/2017 4:06 Appendicitis Acute APPENDECTOMY PM HOTEL OR MOTEL ROOM SERVICE SUPERVISOR CT ABDOMEN PELVIS RAD - Semiurgent 09/08/2017 11:53 Re sults for WITH IV CONTRAST (Fast; most ED AM HOTEL OR MOTEL ROOM SERVICE SUPERVISOR this proc edure patients; some are in the inpatients) results section. IRIS MICROSCOPIC, U STAT 09/08/2017 11:03 Resu lts for AM HOTEL OR MOTEL ROOM SERVICE SUPERVISOR this procedure are in the results section. URINALYSIS WITH STAT 09/08/2017 11:03 Results for MICROSCOPIC IF AM HOTEL OR MOTEL ROOM SERVICE SUPERVISOR this procedur e INDICATED, U are in the results section. HEPATIC FUNCTION STAT 09/08/2017 10:50 Results for PANEL, S AM HOTEL OR MOTEL ROOM SERVICE SUPERVISOR this procedure are in the results section. CBC WITH STAT 09/08/2017 10:50 Results for DIFFERENTIAL, B AM HOTEL OR MOTEL ROOM SERVICE SUPERVISOR this procedu re are in the results section. C-REACTIVE PROTEIN STAT 09/08/2017 10:50 Resul ts for (CRP), S/P AM HOTEL OR MOTEL ROOM SERVICE SUPERVISOR this procedure are in the results section. HUMAN CHORIONIC STAT 09/08/2017 10:50 Results for GONADOTROPIN (HCG), AM HOTEL OR MOTEL ROOM SERVICE SUPERVISOR this pro cedure MARCI, are in the results section. LIPASE, S/P STAT 09/08/2017 10:50 Results for AM HOTEL OR MOTEL ROOM SERVICE SUPERVISOR this procedure are in the results section. LACTATE, B/P STAT 09/08/2017 10:50 Results for AM HOTEL OR MOTEL ROOM SERVICE SUPERVISOR this procedure are in the results section. BASIC METABOLIC STAT 09/08/2017 10:50 Results for PANEL, S/P AM HOTEL OR MOTEL ROOM SERVICE SUPERVISOR this procedure are in the results section. documented in this encounter Results (ABNORMAL) CBC with Differential (09/09/2017 7:05 AM HOTEL OR MOTEL ROOM SERVICE SUPERVISOR) [facility] Method Time Signature Hemoglobin 11.1 (L) 11.6 - 09/09/2017 [facility] 15.0 g/dL 7:11 AM [employer] [facility] Hematocrit 34.8 (L) 35.5 - 09/09/2017 [facility] 44.9 % 7:11 AM [employer] [facility] Erythrocytes 4.18 3.92 - 09/09/2017 [facility] 5.13 7:11 AM HOTEL OR MOTEL ROOM SERVICE SUPERVISOR HEALTH x10(12)/L [facility] MCV 83.3 78.2 - 09/09/2017 [facility] 97.9 fL 7:11 AM [employer] [facility] [employer] [facility] RBC Distrib Width 13.6 12.2 - 09/09/2017 [facility] 16.1 % 7:11 AM [employer] [facility] Platelet Count 263 157 - 371 09/09/2017 [facility] x10(9)/L 7:11 AM [employer] [facility] Leukocytes 11.8 (H) 3.4 - 9.6 09/09/2017 [facility] x10(9)/L 7:11 AM [employer] [facility] Neutrophils 10.54 (H) 1.56 - 09/09/2017 [facility] 6.45 7:11 AM HOTEL OR MOTEL ROOM SERVICE SUPERVISOR HEALTH x10(9)/L [facility] Lymphocytes 0.65 (L) 0.95 - 09/09/2017 [facility] 3.07 7:11 AM HOTEL OR MOTEL ROOM SERVICE SUPERVISOR HEALTH x10(9)/L [facility] Monocytes 0.57 0.26 - 09/09/2017 [facility] 0.81 7:11 AM HOTEL OR MOTEL ROOM SERVICE SUPERVISOR HEALTH x10(9)/L [facility] Eosinophils 0.01 (L) 0.03 - 09/09/2017 [facility] 0.48 7:11 AM HOTEL OR MOTEL ROOM SERVICE SUPERVISOR HEALTH x10(9)/L [facility] Basophils 0.01 0.01 - 09/09/2017 [facility] 0.08 7:11 AM HOTEL OR MOTEL ROOM SERVICE SUPERVISOR HEALTH x10(9)/L [facility] Specimen Anatomical Collection Method Collection Time Receive d Time (Source) Location / / Volume Laterality Blood (Blood, 09/09/2017 7:05 AM 09/09/19 7:08 Venous) HOTEL OR MOTEL ROOM SERVICE SUPERVISOR AM HOTEL OR MOTEL ROOM SERVICE SUPERVISOR Jaquan Monahan D.O. LAB BLOOD ADD-ON Performing Organization Address City/[facility] Phon e Number [facility] [address] [place] [address] [facility] Pathology Services (09/08/2017 5:08 PM HOTEL OR MOTEL ROOM SERVICE SUPERVISOR) Component Value Ref Test Analysis Performed At [facility] Range Method Time Signature PATHOLOGY Patient Name: PUNEET CLAYTON [facility] SERVICES MR#: [id number] [facility] Submitting Physician: JAQUAN MONAHAN DO [id number] Specimen #[id number] Performing Lab: ??[facility] ? [address] [place] [address] Source: Appendix Clinical History/Pre-Op Appendicitis acute [K35.80] Gross Description Labeled appendix consists of a 6.1 cm in length x 1.2 cm in diameter appendix, with attached mesoappendix ( 2.4 cm). ??The serosa is gatica-brown with focal areas of white exudate. ??The muco sa is red-brown hemorrhagic to necrotic. ??An area of disruption is not grossly id entified. ??[employer] Analysis sections are submitted in cassette A1. KG/ed ?? Diagnosis Appendix, appendectomy: ACUTE APPENDICITIS WITH PERIAPPENDICITIS. Electronically Signed By JANNET HERNÁNDEZ MD - 09/10/2017 ed/09/10/2017 Specimen (Source) Anatomical Collection Method Collection Time Re ceived Time Location / / Volume Laterality Tissue (Appendix) 09/08/2017 5:08 PM HOTEL OR MOTEL ROOM SERVICE SUPERVISOR Comment: Acute appendicitis Jaquan Monahan D.O. LAB SURG PATH ORDERABLES Performing Organization Address City/[facility]/ZIP Code Phon e Number [address] [address] [place] Abdomen Pelvis with IV Contrast (09/08/2017 11:53 AM HOTEL OR MOTEL ROOM SERVICE SUPERVISOR) Anatomical Region Laterality Modality Abdomen, Pelvis N/A Computed Tomography Specimen (Source) Anatomical Collection Method Collection Time Re ceived Time Location / / Volume Laterality 09/08/2017 12:00 PM HOTEL OR MOTEL ROOM SERVICE SUPERVISOR Impressions 09/08/2017 12:07 PM HOTEL OR MOTEL ROOM SERVICE SUPERVISOR IMPRESSION: 1. ??Acute uncomplicated appendicitis. 2. ??Hepatic steatosis. 3. ??Prominent follicle right ovary. Narrative 09/08/2017 12:07 PM HOTEL OR MOTEL ROOM SERVICE SUPERVISOR EXAM: CT ABDOMEN PELVIS WITH IV CONTRAST [...] (ABNORMAL) Iris Microscopic, U (09/08/2017 11:03 AM HOTEL OR MOTEL ROOM SERVICE SUPERVISOR) Analysis Performed At Patho logist Time Signature White Blood 11-20 (A) /hpf 09/08/2017 [facility] Cells 11:13 AM [facility] Comment: ----REFERENCE VALUE---- Males: 0-3 Females: 0-10 Unknown: 0-10 Red Blood Cells Occ-2 0 - 2 /hpf 09/08/2017 11:13 AM [facility] Mucus Present /hpf 09/08/2017 11:13 AM [facility] Squamous Epithelial Occ-3 /hpf 09/08/2017 11:13 AM [facility] Bacteria Present (A) None Seen 09/08/2017 11:13 AM [facility] Specimen Anatomical Collection Method Collection Time Receive d Time (Source) Location / / Volume Laterality Urine 09/08/2017 11:03 09/08/2017 AM HOTEL OR MOTEL ROOM SERVICE SUPERVISOR 11:05 AM HOTEL OR MOTEL ROOM SERVICE SUPERVISOR Dimitri Car M.D. LAB URINE ORDERABLES Performing Organization Address City/State/ZIP Code Phon e Number [facility] [address] [place] [address] [facility] (ABNORMAL) Urinalysis with Microscopic if Indicated (09/08/2017 11:03 AM HOTEL OR MOTEL ROOM SERVICE SUPERVISOR) Analysis Performed At Patho logist Time Signature Source Midstream 09/08/2017 [facility] 11:13 AM [facility] Clarity Slightly Clear 09/08/2017 [facility] Cloudy (A) 11:13 AM [facility] Color Yellow 09/08/2017 [facility] 11:13 AM [facility] Comment: ----REFERENCE VALUE---- Colorless Yellow Philomena Blood Negative Negative 09/08/2017 11:13 AM [facility] Nitrite Positive (A) Negative 09/08/2017 11:[address] [facility] Leukocyte Esterase Moderate (A) Negative 09/08/2017 11:1 3 AM [facility] Protein, U Trace mg/dL 09/08/2017 11:13 AM [facility] Comment: ----REFERENCE VALUE---- Negative Trace Glucose Negative Negative mg/dL 09/08/2017 11:13 AM [facility] Ketone Negative Negative mg/dL 09/08/2017 11:13 AM [facility] Bilirubin Negative Negative 09/08/2017 11:13 AM [facility] pH 6.0 5.0 - 8.0 09/08/2017 11:13 AM [facility] Specific [place] 1.015 1.001 - 1.035 09/08/2017 11:13 AM [facility] Urobilinogen 0.2 0.2 - 1.0 09/08/2017 11:[address] [facility] Specimen Anatomical Collection Method Collection Time Receive d Time (Source) Location / / Volume Laterality Urine (Urine, 09/08/2017 11:03 09/08/2017 Clean Catch) AM HOTEL OR MOTEL ROOM SERVICE SUPERVISOR 11:05 AM HOTEL OR MOTEL ROOM SERVICE SUPERVISOR Dimitri Car M.D. LAB URINE ORDERABLES Performing Organization Address City/State/ZIP Code Phon e Number [facility] [address] [facility] [place] [address] [place] [facility] (ABNORMAL) CRP (C-Reactive Protein) (09/08/2017 10:50 AM HOTEL OR MOTEL ROOM SERVICE SUPERVISOR) Analysis Performed At Patho logist Time Signature C-Reactive 115.8 (H) <=8.0 mg/L 09/08/2017 [facility] Protein (CRP), 11:12 AM [facility] Specimen Anatomical Collection Method Collection Time Receive d Time (Source) Location / / Volume Laterality Blood (Blood, 09/08/2017 10:50 09/08/2017 Venous) AM HOTEL OR MOTEL ROOM SERVICE SUPERVISOR 10:52 AM HOTEL OR MOTEL ROOM SERVICE SUPERVISOR Dimitri Car M.D. LAB BLOOD ADD-ON Performing Organization Address City/State/ZIP Code Phon e Number [facility] [address] [place] [address] [place] [address] [place] [facility] hCG (Human Chorionic Gonadotropin), Quantitative, (09/08/2017 10:50 AM HOTEL OR MOTEL ROOM SERVICE SUPERVISOR) athologist Signature HCG, <0.5 IU/L 09/08/2017 [facility] Quantitative, 11:36 AM [facility] Comment: Biotin has been identified by the doug saucedo as a potential interfering substance. ??Higher concentr ations of biotin may be found in multivitamins, hair/nail supple ments, and workout supplements. ??If the result does not ma [facility] clinical observations, repeat testing after patient refrains fr om the use of supplements for at least 12 hours. ----REFERENCE VALUE---- <5.0 Negative 5.0-25.0 Indeterminate >25.0 Positive Specimen Anatomical Collection Method Collection Time Receive d Time (Source) Location / / Volume Laterality Blood (Blood, 09/08/2017 10:50 09/08/2017 Venous) AM HOTEL OR MOTEL ROOM SERVICE SUPERVISOR 10:52 AM HOTEL OR MOTEL ROOM SERVICE SUPERVISOR Dimitri Car M.D. LAB BLOOD ADD-ON Performing Organization Address City/State/ZIP Code Phon e Number [facility]er [facility] [place] [address] [facility] Lipase (09/08/2017 10:50 AM HOTEL OR MOTEL ROOM SERVICE SUPERVISOR) athologist Signature Lipase, P 22 13 - 60 U/L 09/08/2017 [facility] 11:13 AM [facility] Specimen Anatomical Collection Method Collection Time Receive d Time (Source) Location / / Volume Laterality Blood (Blood, 09/08/2017 10:50 09/08/2017 Venous) AM HOTEL OR MOTEL ROOM SERVICE SUPERVISOR 10:52 AM HOTEL OR MOTEL ROOM SERVICE SUPERVISOR Dimitri Car M.D. LAB BLOOD ADD-ON Performing Organization Address City/State/ZIP Code Phon e Number [facility] [address] [facility] [place] [address] [facility] Lactate (09/08/2017 10:50 AM HOTEL OR MOTEL ROOM SERVICE SUPERVISOR) P athologist Signature Lactate, P 0.7 0.6 - 2.3 09/08/2017 [facility] mmol/L 11:11 AM [facility] Specimen Anatomical Collection Method Collection Time Receive d Time (Source) Location / / Volume Laterality Blood (Blood, 09/08/2017 10:50 09/08/2017 Venous) AM HOTEL OR MOTEL ROOM SERVICE SUPERVISOR 10:52 AM HOTEL OR MOTEL ROOM SERVICE SUPERVISOR Dimitri Car M.D. LAB BLOOD NON ADD-ON Performing Organization Address City/State/ZIP Code Phon e Number [facility] Imer [facility] [place] [address] [facility] (ABNORMAL) Hepatic Function Panel (09/08/2017 10:50 AM HOTEL OR MOTEL ROOM SERVICE SUPERVISOR) Patholo gist Method Time Signature Bilirubin, Total, S 1.1 <=1.2 09/08/2017 [facility] mg/dL 11:12 AM [facility] Bilirubin, Direct, S 0.2 0.0 - 0.3 09/08/2017 [facility] mg/dL 11:12 AM [facility] Aspartate 32 8 - 43 09/08/2017 [facility] Aminotransferase U/L 11:12 AM [employer] [facility] [employer] [facility] [facility] Alanine 83 (H) 7 - 45 09/08/2017 [facility] Aminotransferase U/L 11:12 AM [employer] ([facility] Alkaline 101 (H) 37 - 98 09/08/2017 [facility] Phosphatase, S U/L 11:12 AM [facility] Albumin, S 3.9 3.5 - 5.0 09/08/2017 [facility] g/dL 11:12 AM [facility] Protein, Total, S 6.9 6.3 - 7.9 09/08/2017 [facility] g/dL 11:12 AM [facility] Specimen Anatomical Collection Method Collection Time Receive d Time (Source) Location / / Volume Laterality Blood (Blood, 09/08/2017 10:50 09/08/2017 Venous) AM HOTEL OR MOTEL ROOM SERVICE SUPERVISOR 10:52 AM [facility] Dimitri Car M.D. LAB BLOOD ADD-ON Performing Organization Address City/State/ZIP Code Phon e Number [facility] [address] [place] [address] [place] [facility] BMP (Basic Metabolic Panel) (09/08/2017 10:50 AM HOTEL OR MOTEL ROOM SERVICE SUPERVISOR) P athologist Signature Potassium, P 4.2 3.6 - 5.2 09/08/2017 [facility] mmol/L 11:13 AM [facility] Sodium, P 135 135 - 145 09/08/2017 [facility] mmol/L 11:13 AM [facility] Chloride, P 99 98 - 107 09/08/2017 [facility] mmol/L 11:13 AM [facility] Bicarbonate, P 22 22 - 29 09/08/2017 [facility] mmol/L 11:13 AM [facility] Anion Gap, P 14 7 - 15 09/08/2017 [facility] 11:13 AM [facility] BUN (Blood Urea 7 6 - 21 09/08/2017 [facility] Nitrogen), P mg/dL 11:13 AM [facility] Creatinine 0.62 0.59 - 09/08/2017 [facility] 1.04 mg/dL 11:13 AM [facility] eGFR-Black/Afri >90 >=60 09/08/2017 [facility] can Wallisian mL/min/BSA 11:13 AM [facility] Comment: ----ADDITIONAL INFORMATION---- Estimated GFR calculated using the 2009 CKD_EPI creatinine equation. eGFR Non-Black/ >90 >=60 mL/min/BSA 09/08/2017 11:13 AM [facility] Wallisian [facility] Comment: ----ADDITIONAL INFORMATION---- Estimated GFR calculated using the 2009 CKD_EPI creatinine equation. Calcium, Total, P 9.1 8.9 - 10.1 mg/dL 09/08/2017 1 1:[address] [facility] Glucose, P 104 70 - 140 mg/dL 09/08/2017 11:[address] [facility] Specimen Anatomical Collection Method Collection Time Receive d Time (Source) Location / / Volume Laterality Blood (Blood, 09/08/2017 10:50 09/08/2017 Venous) AM HOTEL OR MOTEL ROOM SERVICE SUPERVISOR 10:52 AM HOTEL OR MOTEL ROOM SERVICE SUPERVISOR Dimitri Car M.D. LAB BLOOD ADD-ON Performing Organization Address City/State/ZIP Code Phon e Number [facility] [address] [place] [address] [facility] (ABNORMAL) CBC with Differential (09/08/2017 10:50 AM HOTEL OR MOTEL ROOM SERVICE SUPERVISOR) [facility] Method Time Signature Hemoglobin 12.3 11.6 - 09/08/2017 [facility] 15.0 g/dL 10:56 AM [facility] Hematocrit 37.8 35.5 - 09/08/2017 [facility] 44.9 % 10:56 AM [facility] Erythrocytes 4.60 3.92 - 09/08/2017 [facility] 5.13 10:56 AM [facility] HEALTH x10(12)/L [facility] MCV 82.2 78.2 - 09/08/2017 [facility] 97.9 fL 10:56 AM [facility] RBC Distrib Width 13.9 12.2 - 09/08/2017 [facility] 16.1 % 10:56 AM [facility] Platelet Count 293 157 - 371 09/08/2017 [facility] x10(9)/L 10:56 AM [facility] Leukocytes 15.8 (H) 3.4 - 9.6 09/08/2017 [facility] x10(9)/L 10:56 AM [facility] Neutrophils 13.48 (H) 1.56 - 09/08/2017 [facility] 6.45 10:56 AM [facility] [employer] x10(9)/L [facility] [place] [facility] Lymphocytes 1.35 0.95 - 09/08/2017 [facility] 3.07 10:56 AM [facility] [employer] x10(9)/L [facility] [place] [facility] Monocytes 0.87 (H) 0.26 - 09/08/2017 [facility] 0.81 10:56 AM [facility] [employer] x10(9)/L [facility] [employer] [facility] Eosinophils 0.04 0.03 - 09/08/2017 [facility] 0.48 10:56 AM HOTEL OR MOTEL ROOM SERVICE SUPERVISOR HEALTH x10(9)/L [facility] Basophils 0.03 0.01 - 09/08/2017 [facility] 0.08 10:56 AM HOTEL OR MOTEL ROOM SERVICE SUPERVISOR HEALTH x10(9)/L [facility] Specimen Anatomical Collection Method Collection Time Receive d Time (Source) Location / / Volume Laterality Blood (Blood, 09/08/2017 10:50 09/08/2017 Venous) AM HOTEL OR MOTEL ROOM SERVICE SUPERVISOR 10:52 AM HOTEL OR MOTEL ROOM SERVICE SUPERVISOR Dimitri Car M.D. LAB BLOOD ADD-ON Performing Organization Address City/State/ZIP Code Phon e Number [facility] [address] [place] [address] [facility] documented in this encounter Visit Diagnoses Diagnosis Appendicitis Acute - Primary Appendicitis Acute Appendicitis Acute documented in this encounter Administered Medications Inactive Administered Medications - up to 3 most recent administrations Medication Order MAR Action Action Date Dose Rate Site ciprofloxacin in D5W IVPB New Bag 09/08/2017 12:29 PM 400 mg 2 00 mL/hr Right Hand 400 mg (for_CIPRO) HOTEL OR MOTEL ROOM SERVICE SUPERVISOR 400 mg, intravenous, at 200 mL/hr, Administer over 60 Minutes, Once, On Wed09/08/17 at 1216, For 1 dose, premix bag, Drug Monitoring Program: Pharmacist to adjust medication order based on comorbities and indication., Indications: Appendicitis ciprofloxacin in D5W IVPB New Bag 09/09/2017 12:23 AM 400 mg 2 00 mL/hr Right Hand 400 mg (for_CIPRO) HOTEL [employer]EL [employer] SERVICE SUPERVISOR 400 mg, intravenous, at 200 mL/hr, Administer over 60 Minutes, Once, On Wed09/09/17 at 0030, For 1 dose, Start within 12 hours of last dose. premix bag, Drug Monitoring Program: Pharmacist to adjust medication order based on comorbities and indication., Indications: Prophylaxis, surgical heparin (porcine) 5,000 Given 09/08/2017 2:43 PM HOTEL OR [employer]EL ROOM SERVICE SUPERVISOR 5,000 Units Abdominal Tissue unit/0.5 mL injection - ADS Override Pull Starting on Wed09/08/17 at 1426, For 1 dose, Created by cabinet override heparin (porcine) Given 09/09/2017 9:14 AM HOTEL OR [employer]EL ROOM SERVICE SUPERVISOR 7,500 Units Left Lower Abdomen injection 7,500 Units 7,500 Units, subcutaneous, 3 times daily, First dose on Wed09/09/17 at 0145 Given 09/09/2017 1:48 AM HOTEL OR [employer]EL ROOM SERVICE SUPERVISOR 7,500 Units Right Lower Abdomen HYDROmorphone injection 0.5 mg (for_DILA UDID) Given 09/08/2017 2:40 PM HOTEL OR [employer]EL ROOM SERVICE SUPERVISOR 0.5 mg 0.5 mg, intravenous, Every 1 hour PRN, moderate pain or score 4-6 of 10, Starting on Wed09/08/17 at 1253 iohexol 350 mg iodine/mL solution Given 09/08/2017 11:54 AM HOTEL [employer] SERVICE SUPERVISOR 171 mL Right Hand 171 mL (for_OMNIPAQUE) 171 mL, intravenous, Once in imaging, contrast, Starting on Wed09/08/17 at 1059, For 1 dose ketorolac injection 30 mg Given 09/08/2017 10:57 AM HOTEL [employer]EL [employer] SERVICE SUPERVISOR 30 mg Right Hand (for_TORADOL) 30 mg, intravenous, Once, On Wed09/08/17 at 1040, For 1 dose, Adult IV push rate: Over 15 seconds. Peds IV push rate: Over 1 minute. 60 mg dose only for IM, not recommended for IV., Drug Monitoring Program: Pharmacist to adjust medication order based on comorbities and indication. lactated ringers New Bag 09/08/2017 2:50 PM HOTEL OR [employer]EL ROOM SERVICE SUPERVISOR 20 mL/hr 20 mL/hr 20 mL/hr, intravenous, Continuous, Starting on Wed09/08/17 at 1430, Pre-Op lactated ringers Rate/Dose Verify 09/08/2017 10:00 PM HOTEL [employer]EL [employer] SERVICE SUPERVISOR 75 mL/hr 75 mL/hr 75 mL/hr, intravenous, Continuous, Starting on Wed09/08/17 at 2000 New Bag 09/08/2017 7:55 PM HOTEL [employer] SERVICE SUPERVISOR 75 mL/hr 75 mL/hr lidocaine 50 mL, bupivacaine PF Given 09/08/2017 5:17 PM HOTEL [employer]EL [employer] SERVICE SUPERVISOR 9 m L Abdominal Tissue 50 mL 100 mL injection As needed, Starting on Wed09/08/17 at 1717, Intra-Op metroNIDAZOLE in NaCl (iso-osm) New Bag 09/08/2017 1:39 PM HOTEL [employer]EL [employer] SERVICE SUPERVISOR 500 mg 200 mL/hr IVPB 500 mg (for_FLAGYL) 500 mg, intravenous, at 200 mL/hr, Administer over 30 Minutes, Once, On Wed09/08/17 at 1210, For 1 dose, Indications: Appendicitis metroNIDAZOLE in NaCl (iso-osm) New Bag 09/09/2017 5:36 AM HOTEL [employer]EL [employer] SERVICE SUPERVISOR 500 mg 200 mL/hr IVPB 500 mg (for_FLAGYL) 500 mg, intravenous, at 200 mL/hr, Administer over 30 Minutes, Every 8 hours, First dose on Wed09/08/17 at 2145, For 2 doses, Start within 8 hours of last dose., Indications: Prophylaxis, surgical New Bag 09/08/2017 9:25 PM HOTEL [employer]EL [employer] SERVICE SUPERVISOR 500 mg 200 mL/hr morphine injection 4 mg Given 09/08/2017 10:57 AM HOTEL [employer]EL RO[employer] SERVICE SUPERVISOR 4 mg 4 mg, intravenous, Every 20 min PRN, moderate pain or score 4-6 of 10, severe pain or score 7-10 of 10, Starting on Wed09/08/17 at 1038, For 3 doses NaCl 0.9 % bolus 1,000 New Bag 09/08/2017 10:58 AM 1,000 mL 2000 mL/hr Right Hand mL HOTEL [employer] SERVICE SUPERVISOR 1,000 mL, intravenous, at 2,000 mL/hr, Administer over 0.5 Hours, Once, On Wed09/08/17 at 1040, For 1 dose NaCl 0.9% infusion New Bag 09/08/2017 11:27 AM 1,000 mL/hr 1000 mL/hr Right Aiken nd 1,000 mL/hr, HOTEL [employer]EL ROOM SERVICE SUPERVISOR intravenous, Continuous, Starting on Wed09/08/17 at 1040, For Hydration ondansetron (PF) injection 4 mg (for_ZOF RAN) Given 09/08/2017 2:51 PM HOTEL OR [employer]EL ROOM SERVICE SUPERVISOR 4 mg 4 mg, intravenous, Every 20 min PRN, nausea, vomiting, Starting on Wed09/08/17 at 1038, For 2 doses Given 09/08/2017 10:57 AM HOTEL [employer]EL RO[employer] SERVICE SUPERVISOR 4 mg ondansetron (PF) injection 4 mg (for_ZOF RAN) 4 mg, intravenous, Every 6 hours PRN, na usea, vomiting, Starting on Wed09/08/17 at 1254 oxyCODONE IR tablet 5 mg (for_ROXICODONE ) Given 09/09/2017 5:45 AM HOTEL [employer]EL [employer] SERVICE SUPERVISOR 5 mg 5 mg, oral, Every 4 hours PRN, mild pain or score 1-3 of 10, Starting on Wed09/08/17 at 1839 Given 09/09/2017 12:40 AM HOTEL [employer] SERVICE SUPERVISOR 5 mg sodium chloride 0.9 % injection 10 mL 10 mL, intravenous, As needed, line care, Starting on Wed09/08/17 at 1037, Peripheral Intravenous Catheter and Rapid Infusion Cat heter, prior to blood sampling, post blood transfusion or post blood samplin g sodium chloride 0.9 % injection 10 Given 09/08/2017 11:55 AM HOTEL [employer] ROOM SERVICE SUPERVISOR 10 mL Right Hand mL 10 mL, [...] % injection 80 Given 09/08/2017 11:09 AM HOTEL [employer]EL ROOM SERVICE SUPERVISOR 80 mL Right Hand mL 80 mL, intravenous, Once, On Wed09/08/17 at 1109, For 1 dose documented in this encounter Active and Recently Administered Medications Times are shown in HOTEL OR MOTEL ROOM SERVICE SUPERVISOR. Scheduled Medication Order 09/07/2017 09/08/2017 09/09/2017 ciprofloxacin [...] Lundberg R.N. - Comment: incorrect order by [facility] T.O. not to give had difficulity removing [...] available)1440 (Given - Provider: Zelda Vilchis RBrittaneyNBrittaney)181 ([facility] Unhold - Provider: Transfer Provider, Automatic) 0.5 [...] bupivacaine PF 50 mL 100 mL injection ([facility]) 1717 (Given - Provider: Jaquan Monahan D.O.) As needed, Starting on Wed09/08/17 at 1717, Intra-Op morphine injection 4 mg 1057 (Given - Pr ovider: Keiry Perales R.N.)1408 ([facility] Hold - Provider: Transfer Provider, Automatic - Reason: Patient not available)181 ([facility] Unhold - Provider: Transfer Provider, Automatic) 4 [...] available)1451 (Given - Provider: Zelda Vilchis R.N.)1811 ([facility] Unhold - Provider: Transfer Provider, Automatic) 4 mg, intravenous, Every 20 min PRN, [place], vomiting, Starting on Wed09/08/17 at 1038, For 2 doses ondansetron (PF) injection 4 mg (for_ZOFRAN) 1408 ([facility] Hold - Provider: Transfer Provider, Automatic - Reason: Patient not available)1448 (Dose Auto Held)181 ([facility] Unhold - Provider: Transfer Provider, Automatic) 4 [...] documented as of this encounter Care Teams Protection Consultant Relationship Specialty Start Date End Date Blaire Bundy P.A.-C. PCP - General 02/04/17 04/26/19 documented as of this encounter
--- OUTSIDE RECORDS SUMMARY | 2022-07-24 08:29 | XMS_ITS | Encounter Summary ---
:1985 Author Organization [facility] Address [address] [place] [address] Care Team Providers Name Role Phone Catracho Bundy P.A.-C. Primary Care Provider [phone] Encounter Details Date Type Department Care Team Description 02/11/2017 Hospital Encounter HX [facility] Marisol Galaviz, SUZI N, C.N.P. [address] [place], [place] [address] (Wo rk) Social History [...] given to the patient: Patient Education Materials: Ship'S Officer Healthy Eating Habits During Ship'S Officer Healthy Eating Habits During Its important to [...] water with a slice of lemon or [place] (these can also help ease an upset [...] light tuna, salmon, pollock, and catfish ?? [phone] [place] [address]. All rights reserved. This information is not intended as a substitute for professional medical care. Always follow your healthcare professional's instructions. This document has images extracted. Please consider using [employer] for all your patient education needs. Source: [facility] POWERCHART Document Id: [id number] documented in this encounter Miscellaneous Notes Miscellaneous - Marisol Marques, C.N.P., R.N. - 02/11/2017 10:38 AM CDT Ambulatory Discharge Medication List [facility] [address] [place], [place] [phone] Visit Information Name: PUNEET CLAYTON [facility] Number: [id number] Current Date: 02/11/2017 10:38:54 Attending Provider: MARISOL MARQUES CNP, brazer furnace Provider: CATRACHO NAZARIO PA-C PUNEET CLAYTON has [...] RN Signed On:11-FEB-2017 10:38:51 Additional Information: Source: [facility] POWERCHART Document Id: [id number] Miscellaneous - Marisol Marques C.N.P., R.N. - 02/11/2017 10:38 AM CDT Ambulatory Patient Summary [facility] [address] [facility], [address] [place], [place] [phone] Visit Information Name: PUNEET CLAYTON [facility] Number: [id number] Current Date: 02/11/2017 10:38:55 Physicians Attending Provider: MARISOL MARQUES CNP, brazer furnace Provider: CATRACHO NAZARIO PA-C PUNEET CLAYTON has [...] water with a slice of lemon or [place] (these can also help ease an upset [...] light tuna, salmon, pollock, and catfish ?? [phone] [facility], [address] [place] [address], [place] [address]. All rights reserved. This information is not [...] if you dont have one. Go to [email or web address] and click on Create Your Account. Then, follow the directions to complete the online form. Youll be asked for your [facility] number which you can find at the top of this document. Your Goals/Additional instructions: This document has images extracted. Please consider using [employer] for all your patient education needs. Source: [facility] POWERCHART Document Id: [id number] Miscellaneous - Cleopatra Laguerre L.P.N. - 02/11/2017 10:23 AM CDT Adult Claim Attorney Intake/History Adult Claim Attorney Intake/History Entered On: 02/11/2017 10:26 CDT Performed [...] Information Given By : Patient Languages : Togolese Is Patient Female and 13-50 no hysterectomy [...] LAGUERRE LPN - 02/11/2017 10:23 CDT Source: [facility] POWERCHART Document Id: [id number] CDT!41 documented in this encounter Plan of Treatment Not on filedocumented as of this encounter Visit Diagnoses Not on filedocumented in this encounter Additional Health Concerns Assessment Noted Time PHQ-9 Depression Total Score: 11 12/13/2014 9:50 AM CD T documented as of this encounter Care Teams Diplomatic Officer Relationship Specialty Start Date End Date Catracho Bundy P.A.-C. PCP - General 02/04/17 04/26/19 documented as of this encounter
--- OUTSIDE RECORDS SUMMARY | 2022-07-24 08:29 | XMS_ITS | Encounter Summary ---
:1985 Author Organization [facility] Address [address] [place] [address] Care Team Providers Name Role Phone Blaire Bundy P.A.-C. Primary Care Provider Encounter Details Date Type Department Care Team Description 06/18/2017 Abstract Department of Family Medicine, Provider, Historical [facility], in [place], [place] [address] [place] [address] [facility] [phone] Social History Tobacco Use Types Packs/Day Years [...] How often do you attend congregational or christianity More than 4 time s [...] as of this encounter Care Teams Energy Economist Relationship Specialty Start Date End Date Blaire Bundy P.A.-C. PCP - General 02/04/17 04/26/19 documented as of this encounter
--- OUTSIDE RECORDS SUMMARY | 2022-07-24 08:30 | XMS_ITS | Encounter Summary ---
:1985 Author Organization [facility] Address [address] [place] [address] Care Team Providers Name Role Phone Unavailable Primary Care Provider Unavailable Encounter Details Date Type Department Care Team Description 04/22/2015 Hospital Encounter HX [facility] Nicci Gutiérrez D.O. [address] [place] [address] (Wo rk) Social History Tobacco [...] How often do you attend religion or caodaism More than 4 time s [...] CHIEF COMPLAINT/REASON FOR VISIT consult Denys in [place]/migraine headaches daily REFERRAL SOURCE Trev Mcfarlane MD [...] year old son. 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 Rarely drinks [...] tendon reflexes (with reinforcement) Babinski: Absent Coordination: Acnyas-xq-xbmk is normal. AMRs are normal. Sensation: Vibratory [...] scheduled to have a sleep study in [place] to evaluate whether this may be a [...] # 60 tab(s), 5 Refill(s), Maintenance, Pharmacy: [facility] [id number] Orders: SUMAtriptan, 100 mg = 1 tab(s), PO, As Directed, PRN Migraine headache, Take 1 tablet at onset of headache. Repeat after two hours if needed., # 18 tab(s), 5 Refill(s), Maintenance, Pharmacy: [facility] [id number] FOOTNOTES [1]MR Brain w/ + w/o contrast; CATHI MONTIEL 03/20/2015 10:30 CDT Electronically Signed By: MARIAELENA GUTIÉRREZ DO On: 04/22/2015 12:01 PM Source: [facility] [employer] Document Id: [id number] documented in this encounter Nursing Notes Mariaelena Gutiérrez D.O. - 04/22/2015 11:30 AM CDT Ambulatory Patient Education The following Patient Education Materials have been given to the patient: Patient Education Materials: Source: [facility] [employer] Document Id: [id number] documented in this encounter Miscellaneous Notes Miscellaneous - Mariaelena Gutiérrez D.O. - 04/22/2015 11:30 AM CDT Ambulatory Patient Summary [facility] [address], [address] [place], [place] [phone] Visit Information Name: PUNEET FRIED [facility] Number: [id number] Current Date: 04/22/2015 11:30:34 Physicians Attending Provider: MARIAELENA GUTIÉRREZ DO Primary Care Provider: ALISON LOREDO PA-C FARIHA PUNEET ALVARADO has been given the following list of follow-up instructions, medication list, and patient education materials: Follow-up Instructions With: Address: When: MARIAELENA GUTIÉRREZ [address] [place] [address] [place] [address] [place] (1) In 3 months 07/22/2015 Comments: Do [...] if needed. This is a CHANGE Rout[address]to [place] [address] [place] [id number] topiramate (topiramate 25 mg oral tablet) 2 Tablet(s), Oral, once a day 1 tab at bedtime x 3 days, then 1 2x day x 3 days, then 1 in AM and 2 HS x 3 days, then 2 tabs 2x day New Routed to [place] [address] [place] [id number] Stop Taking [...] if you dont have one. Go to [email or web address] and click on Create Your Account. Then, follow the directions to complete the online form. Youll be asked for your [facility] number which you can find at the top of this document. Your Goals/Additional instructions: Source: [facility] POWERCHART Document Id: [id number] Miscellaneous - Mariaelena Gutiérrez D.O. - 04/22/2015 11:30 AM CDT Ambulatory Discharge Medication List [facility] [address], [address] [place], [place] [phone] Visit Information Name: PUNEET FRIED [facility] Number: [id number] Visit Date: 04/22/2015 11:30:32 Attending [...] if needed. This is a CHANGE [address] [place] [address] [place] [id number] topiramate (topiramate 25 mg oral tablet) 2 Tablet(s), Oral, once a day 1 tab at bedtime x 3 days, then 1 2x day x 3 days, then 1 in AM and 2 HS x 3 days, then 2 tabs 2x day New Routed to [place] [address] [place] [id number] Stop Taking the Following Medications: EPINEPHrine (EpiPen [...] DO Signed On:22-APR-2015 11:29:21 Additional Information: Source: [facility] POWERCHART Document Id: [id number] Miscellaneous - Sima Mccormick, LiorPBrittaneyN. - 04/22/2015 10:39 AM CDT Adult Greens Cutter Intake/History Adult Greens Cutter Intake/History Entered On: 04/22/2015 10:47 CDT Performed On: 04/22/2015 10:39 CDT by SIMA MCCORMICK LPN Intake Chief Complaint : consult Lagalwar in [place]/migraine headaches daily Temperature Core : 35.8 DegC(Converted [...] Preferred Communication Mode : Verbal Languages : Irish Is Patient Female and [...] MCCORMICK LPN - 04/22/2015 10:39 CDT Source: [facility] [employer] Document Id: [id number] CDT!54 documented in this encounter Plan of Treatment Not on filedocumented as of this encounter Visit Diagnoses Not on filedocumented in this encounter Additional Health Concerns Assessment Noted Time PHQ-9 Depression Total Score: 11 12/13/2014 9:50 AM CD T documented as of this encounter
--- OUTSIDE RECORDS SUMMARY | 2022-07-24 08:30 | XMS_ITS | Encounter Summary ---
:[address] [facility] Address [address] [place] [address] Care Team Providers Name Role Phone Unavailable Primary Care Provider Unavailable Encounter Details Date Type Department Care Team Description 02/27/2015 Hospital Encounter [facility] [address] [place] [phone] (Wo rk) Social History Tobacco Use [...] work today as she works in a [employer] setting. Patient was also given a script for prednisone to help with the swelling. Ordered: OV Est Pt Level 3 - 49974 - 15 min Orders: cephalexin, 500 mg = 1 cap(s), PO, 2xDay, x 10 day(s), # 20 cap(s), 0 Refill(s), Acute, Pharmacy: [facility] predniSONE, 40 mg = 2 tab(s), PO, Daily, x 5 day(s), # 10 tab(s), 0 Refill(s), Acute, Pharmacy: [facility] Electronically Signed By: LEONORA NATHAN MD On: 02/27/2015 08:25 AM Source: [facility] POWERCHART Document Id: [id number] documented in this encounter Miscellaneous Notes Miscellaneous - Roosevelt Rodriges L.PBrittaneyNBrittaney - 02/27/2015 1:00 PM CDT Quality Measures Quality Measures Entered On: 03/07/2015 13:00 CDT Performed On: 02/27/2015 13:00 CDT by ROOSEVELT RODRIGES LPN Depression PHQ-9 Score : 0 ROOSEVELT RODRIGES LPN - 03/07/2015 13:00 CDT [facility] Document Id: [id number] CDT!3 Miscellaneous - Leonora Farias M.D. - 02/27/2015 7:39 AM CDT Work Excuse 27 February 2015 PUNEET FRIED [address] [place] [id number] Dear PUNEET FRIED, You were examined in [...] date: 02/28/2015 Notes: _ Sincerely, LEONORA NATHAN [address] [phone] Electronic Signature Electronically Signed By: LEONORA NATHAN MD On: 27 February 2015 This document has images extracted. Source: [facility] Document Id: [id number] Miscellaneous - Leonora Farias M.D. - 02/27/2015 7:38 AM CDT Ambulatory Patient Summary [address] [facility] [place] [phone] Visit Information Name: PUNEET FRIED [facility] Number: [id number] Current Date: 02/27/2015 [...] 10 day(s) New Routed to [facility] [address] [place] [address] EPINEPHrine (EpiPen Auto-Injector 0.3 mg injectable kit) [...] day x 5 day(s) New Routed to [facility] [address] SUMAtriptan (SUMAtriptan 50 mg oral tablet) 1 [...] if you dont have one. Go to [email or web address] and click on Create Your Account. Then, follow the directions to complete the online form. Youll be asked for your [facility] number which you can find at the top of this document. Your Goals/Additional instructions: Source: [facility] POWERCHART Document Id: [id number] Miscellaneous - Leonora Farias M.D. - 02/27/2015 7:38 AM CDT Ambulatory Discharge Medication List [address] [phone] Visit Information Name: PUNEET FRIED [facility] Number: [id number] Visit Date: 02/27/2015 [...] day x 10 day(s) New Routed to [address] [address] EPINEPHrine (EpiPen Auto-Injector 0.3 mg injectable kit) [...] day x 5 day(s) New Routed to [address] [address] SUMAtriptan (SUMAtriptan 50 mg oral tablet) 1 [...] MD Signed On:27-FEB-2015 07:38:18 Additional Information: Source: [facility] POWERCHART Document Id: [id number] Miscellaneous - Trace Khan, L.P.N. - 02/27/2015 7:10 AM CDT Adult Ripshear Operator Intake/History Document Has Been Updated Adult Ripshear Operator Intake/History Entered On: 02/27/2015 7:10 CDT Performed [...] you ? : No TRACE KHAN [facility] - 02/27/2015 7:10 CDT Subjective Pain Symptoms : No [facility] KHAN [facility] - 02/27/2015 7:10 CDT Dependent Habits Tobacco Use/Currently Using : Yes Tobacco Use/Advised to Quit : Yes Exposure to Tobacco Smoke : Patient smokes Smoking Status : Current every day smoker [facility]ACE KHAN [facility] - 02/27/2015 7:10 CDT Tobacco Use Grid Type : Cigarettes Cigarette Use Packs/Day : 0.5 [facility]AN [facility] - 02/27/2015 7:10 CDT Alcohol Use : No [facility] - 02/27/2015 7:12 CDT Caffeine Use Grid Caffeine Use : Current Type : Coffee, Soft drinks Frequency : Occasionally [facility]AN [facility] - 02/27/2015 7:12 CDT [facility] - 02/27/2015 7:10 CDT Recreational Drug Use Grid Drug Use : None [facility] - 02/27/2015 7:10 CDT Source: [facility] [employer] Document Id: [id number] CDT!21 documented in this encounter Plan of Treatment Not on filedocumented as of this encounter Procedures Procedure Name Priority Date/Time Associated Diagnosis Comme nts RAPID STREP A Routine 02/27/2015 7:10 AM Results for this SCREEN CDT procedure are i n the results section. documented in this encounter Results (ABNORMAL) Rapid Strep A Screen (02/27/2015 7:10 AM CDT) [facility] gist Method Time Signature HXStrep A [...]
--- OUTSIDE RECORDS SUMMARY | 2022-07-24 08:30 | XMS_ITS | Encounter Summary ---
:[address] [facility] Address [address] [place] [address] Care Team Providers Name Role Phone Unavailable Primary Care Provider Unavailable Encounter Details Date Type Department Care Team Description 11/06/2016 Hospital Encounter HX [facility] Leonora Melchor A PRN, C.N.P. [address] [place], [place] [phone] (Wo rk) Social History [...] How often do you attend adventist or samaritan More than 4 time s [...] confirmation of due to + test at [facility]. She is , they have [...] NIL G1: 1 FT Date: 01-03-2008. Location [place]. weight 7#13oz Complications high blood pressure Delivery [...] BMI 59. We discussed care here at [facility] or [place], [place]. 3) smoker, quitting. Electronically Signed By: LEONORA VILLASEÑOR CNP, RN On: 11/06/2016 12:06 PM Modified by and Electronically Signed by: LEONORA VILLASEÑOR CNP, RN On: 11/06/2016 10:46 AM Source: [facility] POWERCHART Document Id: [id number] documented in this encounter Miscellaneous Notes Miscellaneous - Leonora Villaseñor R.N. - 11/06/2016 12:02 PM CDT Ambulatory Discharge Medication List [facility] [address], [address] [place], [place] [phone] Visit Information Name: PUNEET COOLEY [facility] Number: [id number] Current Date: 11/06/2016 12:02:18 Attending Provider: LEONORA VILLASEÑOR CNP senior principal software engineer Provider: CATRACHO NAZARIO PA-C PUNEET COOLEY has [...] RN Signed On:06-NOV-2016 12:02:17 Additional Information: Source: [facility] POWERCHART Document Id: [id number] Miscellaneous - Leonora Villaseñor RMarcos. - 11/06/2016 12:02 PM CDT Ambulatory Patient Summary [facility] [address], [address] [place], [place] [phone] Visit Information Name: PUNEET COOLEY [facility] Number: [id number] Current Date: 11/06/2016 12:02:19 Physicians [...] if you dont have one. Go to [email or web address] and click on Create Your Account. Then, follow the directions to complete the online form. Youll be asked for your [facility] number which you can find at the top of this document. Your Goals/Additional instructions: Source: [facility] POWERCHART Document Id: [id number] Miscellaneous - Maurice Dozier L.PBrittaneyN. 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 Date : 10/03/2016 Systolic Blood Pressure [...] 11/06/2016 9:09 CDT General Info Languages : Botswanan Is Patient Female and 13-50 no hysterectomy [...] DOZIER LPN - 11/06/2016 9:09 CDT [facility] Document Id: [id number] CDT!39 Miscellaneous - Maurice Dozier L.P.NBrittaney - [...] Alcohol Use : No DOZIER, MAURICE Maureen [facility] - 11/06/2016 9:08 CDT Caffeine Use Grid Caffeine Use : Current Type : Coffee, Soft drinks Frequency : Occasionally MAURICE DOZIER [facility] - 11/06/2016 9:08 CDT Recreational Drug Use Grid Drug Use : None SUKH DOZIERFER Maureen [facility] - 11/06/2016 9:08 CDT Psychosocial Domestic Abuse Concerns : None Behavioral Health Screen/Safety Assmt : Unable to obtain Tenriism Preference : No qualifying data available. MAURICE DOZIER [facility] 11/06/2016 9:08 CDT Advance Directive Advanced Directives : No Advance Directive Additional Information : No MAURICE DOZIER [facility] 11/06/2016 9:08 CDT Educ Needs Learning Style Preference Adult Grid Patient : None Family : None MAURICE DOZIER [facility] 11/06/2016 9:08 CDT Source: [facility] POWERCHART Document Id: [id number] CDT!37 documented in this encounter Plan of [...]
--- OUTSIDE RECORDS SUMMARY | 2022-07-24 08:30 | XMS_ITS | Encounter Summary ---
:1985 Author Organization [facility] Address [address] [place] [address] Care Team Providers Name Role Phone Unavailable Primary Care Provider Unavailable Encounter Details Date Type Department Care Team Description 03/15/2015 Hospital Encounter HX [facility] Barbra Vora M.D. [address] [place] [phone] (Wo rk) Social History Tobacco Use [...] How often do you attend cheondoism or jew More than 4 time s [...] Chang M.D. - 03/15/2015 9:12 AM CDT [id number] Document Contains Addenda REVISION HISTORY March 18, 2015 at 10:17 a.m. - Addendum added by Trev Chang M.D. The document below is the most current and includes the modifications. The patient has no history of narcolepsy in the past, but recently has been falling asleep more easily. She has to go to work in [employer] and one night at 10 p.m. as [...] a consultation with the pulmonary specialists at [facility]. She should take Zoloft 150 mg a.m. [...] CHANG MD On: 03/18/2015 03:53 PM Source: [facility] MHSDOLBEYNONRADSYS Document Id: [id number] documented in this encounter Miscellaneous Notes Miscellaneous - Trev Chang M.D. - 03/15/2015 10:16 AM CDT Ambulatory Patient Summary [address] [phone] Visit Information Name: PUNEET FRIED [facility] Number: [id number] Current Date: 03/15/2015 10:16:07 Physicians [...] a day Discontinue [facility]ine [facility] [address] [phone] SUMAtriptan (SUMAtriptan 50 mg oral tablet) 1 Tablet(s), Oral, as directed as needed for Migraine headache Take 1 tablet at onset of headache. Repeat after two hours if needed. traZODone (traZODone 50 mg oral tablet) 1 Tablet(s), Oral, once a day [facility] [address] [address] Stop Taking the Following [...] online form. Youll be asked for your [facility] number which you can find at the top of this document. Your Goals/Additional instructions: Puneet , please do not drive to work untill your sleep problem is resolved.Also see Neurologist in a month; need MRI Scan of Brain first. Source: [facility] POWERCHART Document Id: [id number] Miscellaneous - Trev Chang M.D. - 03/15/2015 10:16 AM CDT Ambulatory Discharge Medication List [address] [phone] Visit Information Name: FARIHA PUNEETCARRIE ALVARADO [facility] Number: [id number] Visit Date: 03/15/2015 10:16:05 Attending [...] a day Discontinue Velafaxine New Routed to [facility] [place] [address] SUMAtriptan (SUMAtriptan 50 mg oral tablet) 1 Tablet(s), Oral, as directed as needed for Migraine headache Take 1 tablet at onset of headache. Repeat after two hours if needed. traZODone (traZODone 50 mg oral tablet) 1 Tablet(s), Oral, once a day New Routed to [facility] [address] [address] Stop Taking the Following Medications: Medication list [...] Signed By: Signed On: Additional Information: Source: [facility] POWERCHART Document Id: [id number] Miscellaneous - Trev Chang M.D. - 03/15/2015 10:13 AM CDT Addendum by TREV CHANG MD on 22 March 2015 08:51:25 CDT will do it today.Thanks Addendum by ADITYA HWANG on 15 March 2015 15:39:00 CDT From: ADITYA HWANG To: TREV CHANG MD; Sent: 03/15/2015 15:39:00 CDT ! Subject: FW: The dictation for this patient needs to be submitted LEN for the Referrals to [facility]. Addendum by ADITYA HWANG on 15 March 2015 14:28:10 CDT From: ADITYA HWANG To: ADITYA HWANG; Sent: 03/15/2015 14:28:10 CDT Subject: RE: Referral submitted via online. [facility] scheduling staff will contact patient with appt. info. From: TREV CHANG MD To: ADITYA HWANG; Sent: 03/15/2015 10:13:53 CDT Aditya, this patient,Puneet, has an extremely serious problem with sleep Apnea. Please arrange Consult with sleep Specialist SOON POSSIBLE. Study can follow. Source: [facility] POWERCHART Document Id: [id number] Miscellaneous - Mimi Herrera L.P.N. 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
--- OUTSIDE RECORDS SUMMARY | 2022-07-24 08:30 | XMS_ITS | Encounter Summary ---
:1985 Author Organization [facility] Address [address] [place] [address] Care Team Providers Name Role Phone Unavailable Primary Care Provider Unavailable Encounter Details Date Type Department Care Team Description 07/19/2015 Hospital Encounter HX [facility] Luisa Stevens M .D. Social History [...] often do you attend latter day or mandaen More than 4 time s [...] Comments Blood Pressure 149/69 07/19/2015 9:15 PM DUMP OPERATOR Pulse 113 07/19/2015 9:15 PM DUMP OPERATOR Temperature - - Respiratory Rate - - Oxygen Saturation - - Inhaled Oxygen Concentration - - Weight - - Height - - Body Mass Index - - documented in this encounter Discharge Summaries Rylee Romero R.N. - 07/19/2015 10:17 PM CST ED Discharge Instructions [place] [phone] [address] [address] Name: PUNEET CLAYTON Date of : 1985 12:00 AM Visit Date: 07/19/2015 9:06 PM [facility] Number: [id number] Address: [address] [place] [phone] Primary Care Provider: ALISON LOREDO PA-C IMPORTANT: [facility] in [place] would like to thank you for allowing us to assist you with your healthcare needs. The following includes patient education materials and informationregarding your injury/illness. Diagnosis: Strep Throat Pharyngitis Follow-Up Instructions: With: Address: When: ALISON LOREDO [address] [place] [id number] [facility] () Within As Needed Comments: Call for [...] ?? Muffled voice ?? New rash ?? [phone] [facility], [address] [place] [address]. All rights reserved. This information is not [...] if you dont have one. Go to [email or web address] and click on Create Your Account. Then, [...] ride home with a responsible alliance party. FORREST Cornejo AMANDA KAY , or responsible alliance [...] ride home with a responsible alliance party. FORREST Cornejo AMANDA KAY , or responsible alliance party have received this information and my questions have been answered. I have discussed any challenges I see with this plan with the nurse or physician. Patient Signature or Responsible Alliance Party/Relationship Date Time Provider Signature Date Time This document has images extracted. Please consider using [employer] for all your patient education needs. Source: [employer] Document Id: [id number] OPERATOR Rylee Romero R.N. - 07/19/2015 10:17 PM CST ED Depart Summary [facility] Emergency Department Clinical Discharge Summary PERSON INFORMATION Name PUNEET CLAYTON Age 29 Years 1985 12:00 AM Sex Female Language Marshallese PCP ALISON LOREDO PA-C [id number] Visit Reason UC - Sore Throat; Poss strep Specialty Enc Type Emergency Med Service Emergency Medicine Referred by Track Group [facility] ED Discharge 07/19/2015 10:17 PM Tracking Id [id number] Checkout 07/19/2015 10:17 PM Checkin 07/19/2015 9:06 PM Acuity 5 -Non Urgent Dispo Type * Discharged to Home or Self Care Arrival 07/19/2015 9:06 PM Reg Status Complete LOS 000 01:11 Address: [address] [place] [phone] Comment: PROVIDER INFORMATION Provider Role Provider Contact Time RYLEE ROMERO FOOD SERVICE AGENT Nurse 07/19/15 21:08 LUISA LOPEZ MD ED Provider 07/19/15 21:08 DIAGNOSIS Strep Throat Pharyngitis Comment: PATIENT EDUCATION INFORMATION Instructions: PHARYNGITIS, Strep (Confirmed) Follow up: With: Address: When: ALISON LOREDO [address] [place] [phone] [employer] () Within As Needed Comments: Call for follow up appointment Source: [facility] [employer] Document Id: [id number] OPERATOR documented in this encounter ED Notes Rylee Romero RRoverto - 07/19/2015 10:14 PM CST ED Disposition Summary ED Disposition Summary Entered On: 07/19/2015 22:14 DUMP OPERATOR Performed On: 07/19/2015 22:14 DUMP OPERATOR by RYLEE ROMERO FOOD SERVICE AGENT Disposition Summary Accompanied By : Spouse Printed Discharge Instructions Given to Patient : Yes RYLEE ROMERO RN - 07/19/2015 22:14 DUMP OPERATOR Source: [facility] [employer] Document Id: [id number] DUMP OPERATOR!4 OPERATOR Rylee Romero R.N. - 07/19/2015 10:14 PM CST ED Pain Assessment ED Pain Assessment Entered On: 07/19/2015 22:14 DUMP OPERATOR Performed On: 07/19/2015 22:14 DUMP OPERATOR by RYLEE ROMERO RN Pain Assessment Pain Symptoms : Yes RYLEE ROMERO RN - 07/19/2015 22:14 DUMP OPERATOR Source: [facility] POWERCHART Document Id: [id number] DUMP OPERATOR!3 OPERATOR Rylee Romero R.N. - 07/19/2015 9:14 PM CST ED Primary Assessment Document Has Been Updated ED Primary Assessment Entered On: 07/19/2015 21:15 DUMP OPERATOR Performed On: 07/19/2015 21:14 DUMP OPERATOR by RYLEE ROMERO RN Reason For Visit (As Of: 07/19/2015 21:20:00 DUMP OPERATOR) Problems(Active) Abuse Tobacco Smoking NOS (ICD-9-CM [...] Medical ; Code: 346.90 ; Contributor System: Parametric ; Last Updated: 12/12/2014 9:11 CDT ; Life Cycle Status: Active; Responsible Provider: RABIA NATHAN MD; Vocabulary: ICD-9-CM (ICD-9-CM :V22.2 ) Name of Problem: ; Onset Date: 2007 ; Recorder: GLEN ACOSTA; Confirmation: Confirmed ; Classification: Medical ; Code: V22.2 ; Contributor System: [employer]us LabsChart ; Last Updated: 01/21/2012 9:41 CDT ; [...] PNED ; Probability: 0 ; Diagnosis Code: [id number] Triage Chief Complaint Description : see note Mode of Arrival ED : Private vehicle Track : Medical Languages : Marshallese Treatments Prior to Arrival : Acetaminophen Are you ? : No Is Patient Female and 13-50 no hysterectomy : Yes Status : Patient denies RYLEE ROMERO RN - 07/19/2015 21:14 DUMP OPERATOR Pain Assessment Pain Symptoms : Yes RYLEE ROMERO RN - 07/19/2015 21:14 DUMP OPERATOR Respiratory Airway : Patent Respirations : Unlabored Respiratory Pattern : Regular RYLEE ROMERO RN - 07/19/2015 21:14 DUMP OPERATOR Cardiovascular Heart Rhythm : Regular Skin Color : Normal for ethnicity Skin Description : Dry Skin Temperature : Warm RYLEE ROMERO RN - 07/19/2015 21:14 DUMP OPERATOR Neurological Last Well Time Known : Yes Last Known Well Time : 07/19/2015 8:00 DUMP OPERATOR Level of Consciousness : Alert Orientation : Oriented x 3 Characteristics of Speech : Appropriate for age RYLEE ROMERO RN - 07/19/2015 21:14 DUMP OPERATOR ED Psychosocial Affect/Behavior : Calm Domestic Abuse Concerns : None Behavioral Health Screen/Safety Assmt : No RYLEE ROMERO RN - 07/19/2015 21:14 DUMP OPERATOR Gastrointestinal Nutrition ED : Adequate RYLEE ROMERO RN - 07/19/2015 21:14 DUMP OPERATOR Musculoskeletal Fall Prevention Education Provided : NA RYLEE ROMERO RN - 07/19/2015 21:14 DUMP OPERATOR EENT Mouth and Throat Symptoms : Swollen tonsils RYLEE ROMERO RN - 07/19/2015 21:19 DUMP OPERATOR Social Habits Tobacco Use/Currently Using : Yes Exposure to Tobacco Smoke : Patient smokes Smoking Status : Current every day smoker RYLEE ROMERO RN - 07/19/2015 21:14 DUMP OPERATOR Tobacco Use Grid Type : Cigarettes Cigarette Use Packs/Day : 0.5 RYLEE ROMERO RN - 07/19/2015 21:14 DUMP OPERATOR Alcohol Use Grid Alcohol Use : Yes RYLEE ROMERO RN - 07/19/2015 21:14 DUMP OPERATOR Recreational Drug Use Grid Drug Use : None RYLEE ROMERO RN - 07/19/2015 21:14 DUMP OPERATOR Source: [employer] Document Id: [id number] DUMP OPERATOR!3 OPERATOR Luisa Lopez M.D. - 07/19/2015 9:14 PM CST Throat Pain *ED Patient: PUNEET FRIED Age: 29 years Sex: Female : 1985 Author: LUISA LOPEZ MD Attachments: None Associated Diagnosis: Strep Throat Pharyngitis Basic Information Additional information: Chief Complaint from Nursing Triage Note : Chief Complaint Description 07/19/2015 21:12 DUMP OPERATOR Chief Complaint Description 29 year old [...] Headache Abuse Tobacco Smoking NOS (305.1) Resolved ([id number]): Resolved on 01/03/2008 at 22 years.. Surgical history: Pap smear ([id number]) on 01/25/2013 at 27 Years. Pap smear ([id number]) on 01/25/2013 at 27 Years.. Family history: [...] review:Lab results : Lab View 07/19/2015 21:45 DUMP OPERATOR Strep A Screen Rapid POS . [...] LOPEZ MD On: 07/19/2015 10:06 PM Source: [facility] POWERCHART Document Id: [id number] OPERATOR Rylee Romero R.N. - 07/19/2015 9:12 PM CST ED Triage Assessment Document Has Been Updated ED Triage Assessment Entered On: 07/19/2015 21:14 DUMP OPERATOR Performed On: 07/19/2015 21:12 DUMP OPERATOR by RYLEE ROMERO RN Reason For Visit (As Of: 07/19/2015 21:14:31 DUMP OPERATOR) Problems(Active) Abuse Tobacco Smoking NOS (ICD-9-CM :305.1 ) Name of Problem: Abuse Tobacco Smoking NOS ; Recorder: MAURICE ADDISON; Confirmation: Confirmed ; Classification: Medical ; Code: 305.1 ; Contributor System: Otus LabsChart ; Last Updated: 12/12/2014 9:21 CDT ; [...] Medical ; Code: V22.2 ; Contributor System: Parametric ; Last Updated: 01/21/2012 9:41 CDT ; [...] PNED ; Probability: 0 ; Diagnosis Code: [id number] Triage Chief Complaint Description : 29 year old female admits with complaints of sore throat a nd fever Mode of Arrival ED : Private vehicle Track : Medical Languages : Marshallese Treatments Prior to Arrival : Acetaminophen Are you ? : No Is Patient Female and 13-50 no hysterectomy : Yes Status : Patient denies RYLEE ROMERO RN - 07/19/2015 21:12 DUMP OPERATOR Pain Assessment Pain Symptoms : Yes RYLEE ROMERO RN - 07/19/2015 21:12 DUMP OPERATOR Pain Scale Pain Scale Verbal 0-10 : Open RYLEE ROMERO RN - 07/19/2015 21:12 DUMP OPERATOR Pain Pain Assessment Grid Pain 1 Location : Throat Intensity : 5 RYLEE ROMERO RN - 07/19/2015 21:12 DUMP OPERATOR ED Physician Notification Time ED Physician Notification Time : 07/19/2015 21:14 DUMP OPERATOR RYLEE ROMERO RN - 07/19/2015 21:12 DUMP OPERATOR JAYDEN JAYDEN Level 1 : No JAYDEN Level 2 : No JAYDEN Level 3 : Many RYLEE ROMERO RN - 07/19/2015 21:12 DUMP OPERATOR DCP GENERIC CODE Tracking Acuity : 5 -Non Urgent Tracking Group : [facility] ED RYLEE ROMERO RN - 07/19/2015 21:12 DUMP OPERATOR Allergy (As Of: 07/19/2015 21:14:31 DUMP OPERATOR) Allergies (Active) penicillins Estimated Onset Date: Unspecified ; Created By: GLEN ACOSTA; Reaction Status: Active ;Category: Drug ; Substance: penicillins ; Type: Allergy ; Updated By: GLEN ACOSTA; Reviewed Date: 04/22/2015 10:36 CDT Immunizations Influenza : None RYLEE ROMERO RN - 07/19/2015 21:12 DUMP OPERATOR Source: [employer] Document Id: [id number] DUMP OPERATOR!30 OPERATOR documented in this encounter Miscellaneous Notes Miscellaneous - Conversion, Historical Provider Ser - 07/19/2015 10:17 PM DUMP OPERATOR Coding Summary-Paper Based CODING DATE: 07/29/2015 FINAL [place] [facility] STATUS: * Discharged to Home or [...] PAGAN Date Saved: 07/29/2015 01:50 pm Source: [employer] Document Id: [id number] Miscellaneous - Rylee Romero RMarcos. - 07/19/2015 10:14 PM CST Valuables/Belongings Valuables/Belongings Entered On: 07/19/2015 22:14 DUMP OPERATOR Performed On: 07/19/2015 22:14 DUMP OPERATOR by RYLEE ROMERO RN Valuables/Belongings Belongings Sent Home With : Allsent with patient RYLEE ROMERO RN - 07/19/2015 22:14 DUMP OPERATOR Source: [employer] Document Id: [id number] DUMP OPERATOR!3 OPERATOR Miscellaneous - Rylee Romero R.N. - 07/19/2015 9:06 PM CST Facility Charge Ticket 2.0 11.0 DX Facility Charge Ticket 2.0 11.0 DX Entered On: 07/19/2015 22:14 DUMP OPERATOR Performed On: 07/19/2015 21:06 DUMP OPERATOR by RYLEE ROMERO RN Facility Charge [...] Nursing Notes ED Primary Assessment,07/19/15 21:14,RYLEE ROMERO FOOD SERVICE AGENT Primary Assessment,07/19/15 21:14,RYLEE ROMERO FOOD SERVICE AGENT Pain Assessment,07/19/15 22:14,RYLEE ROMERO RN [facility] Nursing Assessment : Triage and 1-2 nursing assessments [facility] Disposition : Discharge Disposition RTF : discharge [place] Total Points with Diagnosis Control : 5 [place] Visit Level : 41431 Level 3 Treatments Prior to Arrival : Acetaminophen RYLEE ROMERO RN - 07/19/2015 22:14 DUMP OPERATOR Source: [facility] POWERCHART Document Id: [id number] DUMP OPERATOR!19 OPERATOR documented in this encounter Plan of Treatment Not on filedocumented as of this encounter Procedures Procedure Name Priority Date/Time Associated Diagnosis Comme nts RAPID STREP A Routine 07/19/2015 9:45 PM Results for this SCREEN DUMP OPERATOR procedure are i n the results section. documented in this encounter Results (ABNORMAL) Rapid Strep A Screen (07/19/2015 9:45 PM DUMP OPERATOR) [facility] gist Method Time Signature HXStrep A (POSITIVE) POWERCHART Screen Rapid HXFinal Positive for POWERCHART Group A Strep by rapid screen. Specimen (Source) Anatomical Collection Method Collection Time Re ceived Time Location / / Volume Laterality Throat 07/19/2015 9:45 PM DUMP OPERATOR Luisa Lopez M.D. LAB MICROBIOLOGY - GENERAL O RDERABLES Performing Organization Address City/State/ZIP Code Phon e Number POWERCHART documented in this encounter Visit Diagnoses Not on filedocumented in this encounter Additional Health Concerns Assessment Noted Time PHQ-9 Depression Total Score: 11 12/13/2014 9:50 AM CD T documented as of this encounter
--- OUTSIDE RECORDS SUMMARY | 2022-07-24 08:30 | XMS_ITS | Encounter Summary ---
:1985 Author Organization [facility] Address [address] [place] [address] Care Team Providers Name Role Phone Unavailable Primary Care Provider Unavailable Encounter Details Date Type Department Care Team Description 01/15/2016 Hospital Encounter HX [facility] Kyle Colmenares M .D., M.P.H. [address] [place], [place] [phone] (Wo rk) Social History [...] How often do you attend uatsdin or mormon More than 4 time s [...] HINDS RN On: 01/15/2016 10:21 AM Source: [facility] POWERCHART Document Id: [id number] documented in this encounter Plan of Treatment [...] M.Tuberculos-M piyush HXTB Ag 0.00 INTUML POWERCHART [facility]-[place] Comment: ADDITIONAL INFORMATIO N This is a [...] Test Performed by: [facility] [place] [id number] Corporate Coordinator: Rubio Marshall II, M.D., Ph.D. Specimen (Source) Anatomical Collection Method Collection Time Re ceived Time Location / / Volume Laterality Blood 01/15/2016 10:39 AM CDT Kyle Coleman M.D., M.P.H. LAB MICROBIOLOGY - BLOOD O BOBBY Performing Organization Address [facility] Phon e Number POWERCHART Mumps Ab, IgG (01/15/2016 10:39 AM CDT) P athologist Signature Mumps Ab, IgG, Positive POWERCHART S Comment: Results suggest response to immunization or prior exposure to the virus. REFERENCE VALUE------ Vaccinated: Positive (>=1.1 AI) Unvaccinated: Negative (<=0.8 AI) Mumps Ab, IgG, S 3.3 POWERCHART Comment: Test Performed by: [place] [address] Corporate Coordinator: Rubio Marshall II MTomeka, Ph.D. Specimen (Source) Anatomical Collection Method Collection Time Re ceived Time Location / / Volume Laterality Blood 01/15/2016 10:39 AM CDT Kyle Coleman M.D., M.P.HBrittaney LAB MICROBIOLOGY - BLOOD O BOBBY Performing Organization Address [facility] Phon e Number POWERCHART Rubella Antibodies, IgG (01/15/2016 10:39 AM CDT) P athologist Signature HX Rubella Positive POWERCHART [facility] Comment: Results suggest response to immunization or prior exposure to the virus. REFERENCE VALUE------ Vaccinated: Positive (>=1.0 AI) Unvaccinated: Negative (<=0.7 AI) Rubella IgG Antibody Index 1.2 [facility] Comment: Test Performed by: [place] [id number] Corporate Coordinator: Rubio Marshall II MTomeka, Ph.D. Specimen (Source) Anatomical Collection Method Collection Time Re ceived Time Location / / Volume Laterality Blood 01/15/2016 10:39 AM CDT Kyle Coleman M.D., M.P.H. LAB MICROBIOLOGY - BLOOD O BOBBY Performing Organization Address [facility] Phon e Number POWERCHART Measles (Rubeola) Ab, IgG (01/15/2016 10:39 AM CDT) P athologist Signature Measles Positive POWERCHART (Rubeola) Ab, IgG, S Comment: Results suggest response to immunization or prior exposure to the virus. REFERENCE VALUE------ Vaccinated: Positive (>=1.1 AI) Unvaccinated: Negative (<=0.8 AI) Measles IgG Antibody Index 1.4 [facility] Comment: Test Performed by: [place] [id number] Corporate Coordinator: Rubio Marshall II MTomeka, Ph.D. Specimen (Source) Anatomical Collection Method Collection Time Re ceived Time Location / / Volume Laterality Blood 01/15/2016 10:39 AM CDT Kyle Coleman M.D., M.P.H. LAB MICROBIOLOGY - BLOOD O BOBBY Performing Organization Address [facility] Phon e Number POWERCHART Varicella-Zoster Antibody, IgG (01/15/2016 10:39 AM CDT) P athologist Signature Varicella-Zost Negative POWERCHART er Ab, IgG, S Comment: REFERENCE VALUE------ Vaccinated: Positive (>=1.1 AI) Unvaccinated: Negative (<=0.8 AI) Varicella-Zoster Ab, IgG, S 0.2 PO WERCHART Comment: Test Performed by: [place] [address] Corporate Coordinator: Rubio Marshall II, M.D., Ph.D. Specimen (Source) [...]
--- OUTSIDE RECORDS SUMMARY | 2022-07-24 08:30 | XMS_ITS | Encounter Summary ---
:1985 Author Organization [facility] Address [address] [place] [address] Care Team Providers Name Role Phone Unavailable Primary Care Provider Unavailable Encounter Details Date Type Department Care Team Description 10/12/2016 Hospital Encounter HX [facility] Maureen Hooker, PSYCHOLOGIST PERSONNEL, C.N.P., D. N.P. [address] [place] [address] (Wo rk) Social History Tobacco [...] How often do you attend yazdanism or spiritism More than 4 time s [...] Comments Blood Pressure 116/78 10/12/2016 8:36 AM FIBERGLASS FABRICATOR Pulse 74 10/12/2016 8:36 AM FIBERGLASS FABRICATOR Temperature - - Respiratory Rate 16 10/12/2016 8:36 AM FIBERGLASS FABRICATOR Oxygen Saturation - - Inhaled Oxygen Concentration - - Weight - - Height 157 cm (5' 1.81) 10/12/2016 8:36 AM FIBERGLASS FABRICATOR Body Mass Index - - documented in [...] discomfort, but has not tried anything else gcot-sho-vxkgeua for symptoms. No fever or chills. No [...] Ordered: OV Est Pt Level 3 - [address]4620 - 15 min Rapid Strep Confirmation 2. [...] C.N.P., D.N.P On: 10/12/2016 09:02 AM Source: [facility] POWERCHART Document Id: [id number] RGLASS FABRICATOR documented in this encounter Miscellaneous Notes Miscellaneous - Rylee Hooker APRN, C.N.P., D.N.P. - 10/13/2016 11:16 AM FIBERGLASS FABRICATOR Results Notification Document Contains Addenda Addendum by CATRACHO NAZARIO PA-C on October 13, 2016 11:21 FIBERGLASS FABRICATOR Discussed with patient and order for ENT was sent for patient. From: RYLEE HOOKER APRN CBrittaneyNJud, Priti.N.P Sent: 10/13/2016 11:16:43 FIBERGLASS FABRICATOR Show up: 10/13/2016 11:11:00 FIBERGLASS FABRICATOR Subject: Results Notification Patient was contact that [...] Name MBO POS Rapid Strep Confirmation Source: [facility] POWERCHART Document Id: [id number] RGLASS FABRICATOR Miscellaneous - Jude Cardona L.P.N. - 10/12/2016 8:36 AM CST Adult Dance Studio Manager Intake/History Adult Dance Studio Manager Intake/History Entered On: 10/12/2016 8:37 FIBERGLASS FABRICATOR Performed On: 10/12/2016 8:36 FIBERGLASS FABRICATOR by JUDE CARDONA LPN Intake Chief Complaint [...] inch(es)) JUDE CARDONA LPN - 10/12/2016 8:36 FIBERGLASS FABRICATOR General Info Languages : Upper Sorbian Is Patient Female and 13-50 no hysterectomy : Yes Status : Patient denies Are you ? : No JUDE CARDONA LPN - 10/12/2016 8:36 FIBERGLASS FABRICATOR Subjective Pain Symptoms : Yes WEST CARDONANADIA Purdy LPN - 10/12/2016 8:36 FIBERGLASS FABRICATOR Pain Scale Pain Scale Verbal 0-10 : Open JUDE CARDONA JEANETTE 10/12/2016 8:36 FIBERGLASS FABRICATOR Pain Pain Assessment Grid Pain 1 Location : Throat Laterality : Bilateral Intensity : 3 ELVIN JUDE R MEDICAL DELIVERY DRIVER - 10/12/2016 8:36 FIBERGLASS FABRICATOR Dependent Habits Exposure to Tobacco Smoke : Patient smokes Smoking Status : Current every day smoker Tobacco 2A : Yes Tobacco Use/Currently Using : Yes Tobacco Use/Last 30 Days : Yes Tobacco Use/Last 12 months : Yes Type : Cigarettes: Less than 20 per day Tobacco Use/Advised to Quit : Yes CARDONA JUDE Purdy LPN 10/12/2016 8:36 FIBERGLASS FABRICATOR Caffeine Use Grid Caffeine Use : Current Type : Coffee, Soft drinks Frequency : Occasionally VENESSA CARDONASSNADIA Purdy LPN 10/12/2016 8:36 FIBERGLASS FABRICATOR Recreational Drug Use Grid Drug Use : None CARDONAJUDE MEDICAL DELIVERY DRIVER 10/12/2016 8:36 FIBERGLASS FABRICATOR Source: [facility] Bswift Document Id: [id number] FIBERGLASS FABRICATOR!46 RGLASS FABRICATOR documented in this encounter Plan of Treatment Not on filedocumented as of this encounter Procedures Procedure Name Priority Date/Time Associated Diagnosis Comme nts RAPID STREP A Routine 10/12/2016 8:15 AM Results for this SCREEN FIBERGLASS FABRICATOR procedure are i n the results section. RAPID STREP A Routine 10/12/2016 8:15 AM Results for this SCREEN FIBERGLASS FABRICATOR procedure are i n the results section. documented in this encounter Results (ABNORMAL) Rapid Strep A Screen (10/12/2016 8:15 AM FIBERGLASS FABRICATOR) [facility] Method Time Signature HXRapid Strep (POSITIVE) POWERCHART Confirmation HXPre Pending POWERCHART HXFinal POS POWERCHART HXFinal [facility] [address] [facility] [id number] Specimen Anatomical Collection Method Collection Time Receive d Time (Source) Location / / Volume Laterality Throat 10/12/2016 8:15 AM 02/20/201 7 8:15 FIBERGLASS FABRICATOR AM FIBERGLASS FABRICATOR Rylee Hooker APRN C.N.P., D.N.P. LAB MICROBIOLOGY - GENERAL ORDERABLES Performing Organization Address City/State/ZIP Code Phon e Number POWERCHART Rapid Strep A Screen (10/12/2016 8:15 AM FIBERGLASS FABRICATOR) [facility] Method Time Signature HXStrep A POWERCHART Screen Rapid HXFinal Negative for POWERCHART Strep Group A by rapid screen. HXFinal Culture POWERCHART confirmation to follow. Specimen (Source) Anatomical Collection Method Collection Time Re ceived Time Location / / Volume Laterality Throat 10/12/2016 8:15 AM FIBERGLASS FABRICATOR Marlyn Crocker APRN.N.P., D.N.P. LAB MICROBIOLOGY - GENERAL ORDERABLES Performing Organization Address City/[facility] Code Phon e Number POWERCHART documented in this encounter Visit Diagnoses Not on filedocumented in this encounter Additional Health Concerns Assessment Noted Time PHQ-9 Depression Total Score: 11 12/13/2014 9:50 AM CD T documented as of this encounter
--- OUTSIDE RECORDS SUMMARY | 2022-07-24 08:30 | XMS_ITS | Encounter Summary ---
:1985 Author Organization [facility] Address [address] [place] [address] Care Team Providers Name Role Phone Unavailable Primary Care Provider Unavailable Encounter Details Date Type Department Care Team Description 11/05/2016 Hospital Encounter [facility] E[facility] Venu Nguyen M.D. [address] [place], [place] [phone] (Wo rk) Social History [...] How often do you attend sabianism or christian More than 4 time s [...] Nguyen M.D. - 11/05/2016 12:13 PM CDT [id number] Ms. Cooley is a pleasant 30-year-old accompanied [...] than a pack per week. Works at [employer]. PHYSICAL EXAMINATION GENERAL: Appears well, no distress. [...] 61, I am not sure proceeding in [place] would even be an option. She will [...] Venu Nguyen M.D./robb cc: Blaire Thornton P.A.-C. [facility] in [address] [place] [address] Electronically Signed By: VENU NGUYEN MD On: 12/01/2016 01:38 PM Source: [facility] MHSDOLBEYNONRADSYS Document Id: [id number] documented in this encounter Miscellaneous Notes Miscellaneous - Madhavi Addison R.N. - 11/05/2016 12:26 PM CDT Adult Quality Technician Fiberglass Intake/History Adult Quality Technician Fiberglass Intake/History Entered On: 11/05/2016 12:30 CDT Performed On: 11/05/2016 12:26 CDT by MADHAVI ADDISON general supervisor Chief Complaint : chronic sore throat, large [...] 11/05/2016 12:26 CDT General Info Languages : Sri Lankan Is Patient Female [...] ADDISON RN - 11/05/2016 12:26 CDT [facility] Document Id: [id number] CDT!44 documented in this encounter Plan of Treatment Not on filedocumented as of this encounter Procedures Procedure Name Priority Date/Time Associated Diagnosis Comme nts RAPID STREP A Routine 11/16/2016 10:12 AM Results for this SCREEN CDT procedure are i n the results section. documented in this encounter Results Rapid Strep A Screen (11/16/2016 10:12 AM CDT) [facility] Method Time Signature HXStrep A POWERCHART [...]
--- OUTSIDE RECORDS SUMMARY | 2022-07-24 08:30 | XMS_ITS | Encounter Summary ---
:1985 Author Organization [facility] Address [address] [place] [address] Care Team Providers Name Role Phone Unavailable Primary Care Provider Unavailable Encounter Details Date Type Department Care Team Description 12/10/2015 Hospital Encounter HX [facility] Renny Castro M.D. [address] [place], [place] [address] (Wo rk) Social History [...] How often do you attend buddhist or presybeterian More than 4 time s [...] Acuna M.D. - 12/10/2015 7:54 AM CDT [id number] CHIEF COMPLAINT/REASON FOR VISIT A 3-month history [...] ACUNA MD On: 12/11/2015 08:52 AM Source: [facility] MHSDOLBEYNONRADSYS Document Id: [id number] documented in this encounter Miscellaneous Notes Miscellaneous - Timbo Acuna M.D. - 12/10/2015 9:16 AM CDT Ambulatory Patient Summary [address] [id number] Visit Information Name: PUNEET CLAYTON [facility] Number: [id number] Current Date: 12/10/2015 09:16:05 Physicians [...] day x 14 day(s) New Routed to COUNT [facility]CLUD[facility] [address] [place] [address] topiramate (topiramate 25 mg oral tablet) 2 [...] dont have one. Go to [email or web address] and click on Create Your Account. Then, follow the directions to complete the online form. Youll be asked for your [facility] number which you can find at the top of this document. Your Goals/Additional instructions: Source: [facility] POWERCHART Document Id: [id number] Miscellaneous - Timbo Acuna M.D. - 12/10/2015 9:16 AM CDT Ambulatory Discharge Medication List [address] [id number] Visit Information Name: PUNEET CLAYTON [facility] Number: [id number] Visit Date: 12/10/2015 09:16:04 Attending [...] day x 14 day(s) New Routed to [address] [address] topiramate (topiramate 25 mg oral tablet) 2 [...] Signed By: Signed On: Additional Information: Source: [facility] POWERCHART Document Id: [id number] Miscellaneous - Abimbola Perry L.P.N. - 12/10/2015 8:07 AM CDT Adult Waiter/Waitress Formal Intake/History Adult Waiter/Waitress Formal Intake/History Entered On: 12/10/2015 8:09 CDT Performed [...] 12/10/2015 8:07 CDT General Info Languages : Faroese Is Patient Female and [...] PERRY LPN - 12/10/2015 8:07 CDT Source: [facility] userfox Document Id: [id number] CDT!43 documented in this encounter Plan of Treatment Not on filedocumented as of this encounter Visit Diagnoses Not on filedocumented in this encounter Additional Health Concerns Assessment Noted Time PHQ-9 Depression Total Score: 11 12/13/2014 9:50 AM CD T documented as of this encounter
--- OUTSIDE RECORDS SUMMARY | 2022-07-24 08:30 | XMS_ITS | Encounter Summary ---
:1985 Author Organization [facility] Address [address] [place] [address] Care Team Providers Name Role Phone Unavailable Primary Care Provider Unavailable Encounter Details Date Type Department Care Team Description 03/20/2015 Hospital Encounter [facility] Barbra Yancey M.D. [address] [place] [phone] (Wo rk) Social History Tobacco Use [...] How often do you attend religion or cheondoism More than 4 time s [...] Summary-Paper Based CODING DATE: 03/28/2015 FINAL [facility] STATUS: * Discharged to [...] ZENG Date Saved: 03/28/2015 07:42 am Source: [facility] POWERCHART Document Id: [id number] documented in this encounter Plan of Treatment Not on filedocumented as of this encounter Visit Diagnoses Not on filedocumented in this encounter Additional Health Concerns Assessment Noted Time PHQ-9 Depression Total Score: 11 12/13/2014 9:50 AM CD T documented as of this encounter
--- OUTSIDE RECORDS SUMMARY | 2022-07-24 08:30 | XMS_ITS | Encounter Summary ---
:1985 Author Organization [facility] Address [address] [place] [address] Care Team Providers Name Role Phone Unavailable Primary Care Provider Unavailable Encounter Details Date Type Department Care Team Description 03/02/2015 Hospital Encounter [facility]X [facility] Berny Llamas M.D. [address] [place], [place] [phone] (Wo rk) Social [...] How often do you attend yazidism or buddhist More than 4 time s [...] 03/02/2015 10:41 PM CDT ED Discharge Instructions [address] [place] [address] Name: PUNEET FRIED Date of : 1985 12:00 AM Visit Date: 03/02/2015 10:12 PM [facility] Number: [id number] Address: [address] [place] [phone] Primary Care Provider: ALISON MONACO PA-C IMPORTANT: [facility] in [place] would like to thank you for allowing us to assist you with your healthcare needs. The following includes patient education materials and information regarding your injury/illness. Diagnosis: Strep Throat Pharyngitis Follow-Up Instructions: With: Address: When: ALISON MONACO [address] [place] [phone] Business (1) In 2 days 03/04/2015 Comments: [...] with strep throat more comfortable: Try soft, kvwv-oe-dnnyvts foods, such as soup, applesauce, and yogurt. [...] ?? Shortness of breath ?? Rash ?? [phone] Cecil Paez, [address] [place] [address], [place] [address]. All rights reserved. This information is not [...] you dont have one. Go to [email or web address] and click on Create Your Account. Then, follow the directions to complete the online form. Youll be asked for your [facility] number which you can find at [...] document has images extracted. Please consider using [employer] for all your patient education needs. Source: [facility] POWERCHART Document Id: [id number] Kavitha Saha R.N. - 03/02/2015 10:41 PM CDT ED Depart Summary [facility] Emergency Department Clinical Discharge Summary PERSON INFORMATION Name PUNEET FRIED Age 29 Years 1985 12:00 AM Sex Female Language Montserratian PCP ALISON MONACO PA-C Marital Status Single Visit Id Visit Reason Facial swelling; UC - Sore Throat; sore throat, facial swelling Specialty Enc Type Emergency Med Service Emergency Medicine Referred by Track Group [facility] ED Discharge 03/02/2015 10:35 PM Tracking Id [id number] Checkout 03/02/2015 10:35 PM Checkin 03/02/2015 10:12 PM Acuity 3 -Urgent Dispo Type * Discharged to Home or Self Care Arrival 03/02/2015 10:12 PM Reg Status Complete LOS 000 00:23 Address: [address] [place] [phone] Comment: PROVIDER INFORMATION Provider Role Provider Contact Time KAVITHA SAHA HOT BLASTER Nurse 03/02/15 22:16 BERNY GARCIA MD ED Provider 03/02/15 22:17 DIAGNOSIS Strep Throat Pharyngitis Comment: PATIENT EDUCATION INFORMATION Instructions: Strep Throat Follow up: With: Address: When: ALISON MONACO [address] [place] [phone] Business (9) In 2 days 03/04/2015 Comments: For recheck if not resolving Source: [facility] Document Id: [id number] documented in this encounter ED Notes Kavitha [...] SAHA RN - 03/02/2015 22:40 CDT Source: [facility] Document Id: [id number] CDT!9 Berny Garcia M.D. - 03/02/2015 10:18 [...] and with a positive rapid strep in [place] 2 days ago. She is on Keflex [...] Headache Abuse Tobacco Smoking NOS (305.1) Resolved ([id number]): Resolved on 01/03/2008 at 22 years.. Surgical history: Pap smear ([id number]) on 01/25/2013 at 27 Years. Pap smear ([id number]) on 01/25/2013 at 27 Years.. Family history: [...] Headache / V22.2 / Confirmed Resolved: / [id number]. Physical Examination Vital Signs: Vital Signs 03/02/2015 [...] Stable. Disposition: Discharged: to home. Prescriptions: Prescription [facility]: Zithromax (Order Processing): 500 mg, PO, Once, Prescription [facility]: Zithromax 250 mg oral tablet (Prescribe): [...] GARCIA MD On: 03/02/2015 10:28 PM Source: [facility] SureSpeakCHART Document Id: [id number]} Kavitha Saha RBrittaneyN. - 03/02/2015 10:17 PM [...] Medical ; Code: 305.1 ; Contributor System: Happy KidzChart ; Last Updated: 12/12/2014 9:21 CDT ; [...] Medical ; Code: 784.0 ; Contributor System: Happy KidzChart ; Last Updated: 12/12/2014 9:11 CDT ; Life Cycle Status: Active ; Vocabulary: ICD-9-CM ; Comments: - Headache Headache Migraine (ICD-9-CM :346.90 ) Name of Problem: Headache Migraine ; Onset Date: 01/21/2012 ; Recorder: RABIA NATHAN MD; Confirmation: Confirmed ; Classification: Medical ; Code: 346.90 ; Contributor System: Happy KidzChart ; Last Updated: 12/12/2014 9:11 CDT ; [...] PNED ; Probability: 0 ; Diagnosis Code: [id number] UC - Sore Throat Date: 03/02/2015 ; Diagnosis Type: Reason For Visit ; Confirmation: Complaint of ; Clinical Dx: UC - Sore Throat ; Classification: Medical ; Clinical Service: Emergency medicine ; Code: PNED ; Probability: 0 ; Diagnosis Code: [id number] Triage Chief Complaint Description : diagnosed with strep on Tues, on Keflex and Prednisone. today left side of face swollen in am, feels like something lodged in throat, hurts to turn head to left Information Given By : Patient Accompanied By : Alone Mode of Arrival ED : Private vehicle, Ambulatory Track : Medical Languages : Montserratian Patient Informed of Triage Location : Emergency [...] Weight Conversion to Pounds : 305.8 lb KAVITAH SAHA SHRUTHI - 03/02/2015 22:17 CDT Pain [...] Acuity : 3 -Urgent Tracking Group : [facility] ED KAVITHA SAHA SHRUTHI 03/02/2015 22:17 CDT [...] SAHA RN - 03/02/2015 22:17 CDT Source: [facility] Document Id: [id number] CDT!84 documented in this encounter Miscellaneous Notes Miscellaneous - Conversion, Historical Provider Ser - 03/02/2015 10:35 PM CDT Coding Summary-Paper Based CODING DATE: 03/14/2015 FINAL [facility] STATUS: * Discharged to Home or Self Care PAYOR: [facility] ADMIT DX: [id number] Acute Pharyngitis REASON [...] SORTO Date Saved: 03/14/2015 02:40 pm Source: [facility] Document Id: [id number] Miscellaneous - Kavitha Saha R.N. - 03/02/2015 [...] SAHA RN - 03/02/2015 22:40 CDT Source: [facility] Document Id: [id number] CDT!8 Miscellaneous - Kavitha Saha R.N. - [...] Control : 5 Lynx Visit Level : 99213 Level 2 Treatments Prior to Arrival : Home treatments KAVITHA SAHA RN - 03/02/2015 22:40 CDT Source: [facility] Document Id: [id number] CDT!18 documented in this encounter Plan of Treatment Not on filedocumented as of this encounter Visit Diagnoses Not on filedocumented in this encounter Additional Health Concerns Assessment Noted Time PHQ-9 Depression Total Score: 11 12/13/2014 9:50 AM CD T documented as of this encounter
--- OUTSIDE RECORDS SUMMARY | 2022-07-24 08:30 | XMS_ITS | Encounter Summary ---
:1985 Author Organization [facility] Address [address] [place] [address] Care Team Providers Name Role Phone Unavailable Primary Care Provider Unavailable Encounter Details Date Type Department Care Team Description 02/07/2016 Hospital Encounter HX [facility] Kyle Colmenares M .D., M.P.H. [address] [place], [place] [phone] (Wo rk) Social History [...] How often do you attend holiness or confucianism More than 4 time s [...] Only Visit Documentation : MRO review for [facility]. DEV CASPER LPN - 02/07/2016 11:27 CDT Source: [facility] POWERCHART Document Id: [id number] CDT!3 documented in this encounter Plan of Treatment Not on filedocumented as of this encounter Visit Diagnoses Not on filedocumented in this encounter Additional Health Concerns Assessment Noted Time PHQ-9 Depression Total Score: 11 12/13/2014 9:50 AM CD T documented as of this encounter
--- OUTSIDE RECORDS SUMMARY | 2022-07-24 08:30 | XMS_ITS | Encounter Summary ---
:1985 Author Organization [facility] Address [address] [place] [address] Care Team Providers Name Role Phone Unavailable Primary Care Provider Unavailable Encounter Details Date Type Department Care Team Description 03/05/2015 Hospital Encounter HX [facility] ED Joslyn Snyder M.D. [address] [place], [place] [phone] (Wo rk) Social History [...] How often do you attend advent or gnosticism More than 4 time s [...] 03/05/2015 10:42 AM CDT ED Depart Summary [facility] Emergency Department Clinical Discharge Summary PERSON INFORMATION Name PUNEET FRIED Age 29 Years 1985 12:00 AM Sex Female Language Indonesian PCP ALISON MONACO PA-C Marital Status Single Visit Id Visit Reason Throat pain - Adult; Extreme Throat Pain Specialty Enc Type Emergency Med Service Emergency Medicine Referred by Track Group [facility] ED Discharge 03/05/2015 10:30 AM Tracking Id [id number] Checkout 03/05/2015 10:30 AM Checkin 03/05/2015 6:02 AM Acuity 3 -Urgent Dispo Type * Discharged to Home or Self Care Arrival 03/05/2015 6:02 AM Reg Status Complete LOS 000 04:28 Address: [address] [place] [phone] Comment: PROVIDER INFORMATION Provider Role Provider Contact Time JOSLYN SNYDER MD ED Provider 03/05/15 06:20 MAURICE HAYS CORE DRILLING SUPERVISOR Nurse 03/05/15 06:20 JOSLYN SNYDER MD ED Provider 03/05/15 06:25 DAWNA HART CORE DRILLING SUPERVISOR Nurse 03/05/15 07:32 DIAGNOSIS Abscess Peritonsillar Comment: PATIENT EDUCATION INFORMATION Instructions: PERITONSILLAR ABSCESS Follow up: Source: [facility] POWERCHART Document Id: [id number] Dawna Hart R.N. - 03/05/2015 10:42 AM CDT ED Discharge Instructions [address] [place] [address] Name: PUNEET FRIED Date of : 1985 12:00 AM Visit Date: 03/05/2015 6:02 AM [facility] Number: [id number] Address: [address] [place] [phone] Primary Care Provider: ALISON MONACO PA-C IMPORTANT: [facility] in [place] would like to thank you for allowing [...] -- Trouble breathing or noisy breathing ?? [id number] [place] [address]. All rights reserved. This information is not [...] dont have one. Go to [email or web address] and click on Create Your Account. Then, follow the directions to complete the online form. Youll be asked for your [facility] number which you can find at the [...] Republican/Relationship Date Time Provider Signature Date Time Source: [employer] Document Id: [id number] documented in this encounter ED Notes Dawna [...] HART RN - 03/05/2015 10:41 CDT Source: [employer] Document Id: [id number] CDT!8 Dawna Hart R.N. - 03/05/2015 9:56 [...] HART RN - 03/05/2015 9:56 CDT Source: [employer] Document Id: [id number] CDT!10 Dawna Hart R.N. - 03/05/2015 8:59 [...] HART RN - 03/05/2015 8:59 CDT Source: [employer] Document Id: [id number] CDT!10 Dawna Hart R.N. - 03/05/2015 7:30 [...] HART RN - 03/05/2015 7:30 CDT Source: [employer] Document Id: [id number] CDT!12 Dawna Hart R.N. - 03/05/2015 7:27 [...] HART RN - 03/05/2015 7:27 CDT Source: [facility] [employer] Document Id: [id number] CDT!10 Joslyn Snyder M.D. - 03/05/2015 6:26 [...] She was seen in emergency room in [place] where she was diagnosed with strep throat [...] Stat, Patient Bed, Once, 03/05/2015 6:27 CDT, [facility] ED, Launch Orders Pharmacy: [email or web address] (Order [...] The patient was told to go to [place] [facility] for further management and [...] SNYDER MD On: 03/05/2015 10:19 AM Source: [facility] POWERCHART Document Id: [id number]} Maurice Hays RBrittaneyN. - 03/05/2015 6:14 AM [...] Medical ; Code: 305.1 ; Contributor System: [employer] ; Last Updated: 12/12/2014 9:21 CDT ; Life Cycle Date: 12/12/2014 ; Life Cycle Status: Active ; Responsible Provider: MAURICE ADDISON; Vocabulary: ICD-9-CM Dysthymic Disorder (ICD-9-CM :300.4 ) Name of Problem: Dysthymic Disorder ; Onset Date: 08/01/2010 ;Confirmation: Confirmed ; Classification: Medical ; Code: 300.4 ; Contributor System: [employer] ; Last Updated: 12/12/2014 9:11 CDT ; Life Cycle Status: Active ; Vocabulary: ICD-9-CM ; Comments: - Dysthymic disorder Headache (ICD-9-CM :784.0 ) Name of Problem: Headache ; Onset Date: 10/24/2007 ; Confirmation: Confirmed ; Classification: Medical ; Code: 784.0 ; Contributor System: [employer]looks[employer] ; Last Updated: 12/12/2014 9:11 CDT ; [...] PNED ; Probability: 0 ; Diagnosis Code: [id number] Triage Chief Complaint Description : see triage Mode of Arrival ED : Private vehicle, Ambulatory Track : Medical Languages : Indonesian Treatments Prior to Arrival : Acetaminophen, Ibuprofen [...] HAYS RN - 03/05/2015 6:14 CDT Source: [facility] [employer]ulaCHART Document Id: [id number] CDT!48 Maurice Hays RMarcos. - 03/05/2015 6:09 [...] Medical ; Code: 346.90 ; Contributor System: 365looks[employer] ; Last Updated: 12/12/2014 9:11 CDT ; [...] PNED ; Probability: 0 ; Diagnosis Code: [id number] Triage Chief Complaint Description : Pt presents with sore throat. Diagnosed February 27 with strep was seen in ER March 02 again and changed antibiotics. Pain continues, hard to swallow and swollen. Tonsils hugemore on left then right side. Information Given By : Patient Accompanied By : Alone Mode of Arrival ED : Private vehicle, Ambulatory Track : Medical Languages : Indonesian Vital Signs Assessed : Yes Treatments Prior [...] Acuity : 3 -Urgent Tracking Group : [facility] ED MAURICE HAYS RN - 03/05/2015 6:09 CDT Allergy (As Of: 03/05/2015 06:14:25 CDT) Allergies (Active) penicillins Estimated Onset Date: Unspecified ; Created By: GLEN ACOSTA; Reaction Status: Active ;Category: Drug ; Substance: penicillins ; Type: Allergy ; Updated By: GLEN ACOSTA; Reviewed Date: 03/05/2015 6:14 CDT Immunizations Immunizations Current : Yes MAURICE HAYS RN - 03/05/2015 6:09 CDT Source: [employer] Document Id: [id number] CDT!48 documented in this encounter Miscellaneous Notes Miscellaneous - aDwna Hart R.N. - 03/05/2015 10:41 AM CDT Valuables/Belongings Valuables/Belongings Entered On: 03/05/2015 10:41 CDT Performed On: 03/05/2015 10:41 CDT by DAWNA HART RN Valuables/Belongings Belongings Sent Home With : patient DAWNA HART RN - 03/05/2015 10:41 CDT Source: [employer] Document Id: [id number] CDT!3 Miscellaneous - Conversion, Historical Provider Ser - 03/05/2015 10:30 AM CDT Coding Summary-Paper Based CODING DATE: 03/18/2015 FINAL [facility] STATUS: * Discharged to Home or [...] PATRICK Date Saved: 03/18/2015 11:39 am Source: [facility] POWERCHART Document Id: [id number] Miscellaneous - Dawna Hart RRoverto - 03/05/2015 [...] Control : 7 Lynx Visit Level : 40202 Level 3 Treatments Prior to Arrival : Acetaminophen, Ibuprofen DAWNA HART RN - 03/05/2015 10:41 CDT Source: [facility] POWERCHART Document Id: [id number] CDT!19 documented in this encounter Plan of [...] Mononucleosis Screen, POCT (03/05/2015 6:54 AM CDT) [facility] AdXpose Method Time Signature Infectious POWERCHART [place] Test, S HXFinal Negative POWERCHART HXFinal Reference: POWERCHART Negative Specimen (Source) Anatomical Collection Method Collection Time Re ceived Time Location / / Volume Laterality Blood 03/05/2015 6:54 AM CDT Joslyn Snyder M.D. LAB POCT ORDERABLES-MANUAL Performing Organization Address City/[facility] Code Phon e Number POWERCHART Test, Qualitative, Urine (03/05/2015 6:30 AM CDT) [facility] AdXpose Method Time Signature HXBeta-hCG Negative POWERCHART Qualitative Urine Specimen (Source) Anatomical Collection Method Collection Time Re ceived Time Location / / Volume Laterality Urine 03/05/2015 6:30 AM CDT Joslyn Snyder M.D. LAB URINE ORDERABLES Performing Organization Address City/[facility] Code Phon e Number POWERCHART documented in this encounter Visit Diagnoses Not on filedocumented in this encounter Additional Health Concerns Assessment Noted Time PHQ-9 Depression Total Score: 11 12/13/2014 9:50 AM CD T documented as of this encounter
--- OUTSIDE RECORDS SUMMARY | 2022-07-24 08:30 | XMS_ITS | Encounter Summary ---
:1985 Author Organization [facility] Address [address] [place] [address] Care Team Providers Name Role Phone Unavailable Primary Care Provider Unavailable Encounter Details Date Type Department Care Team Description 01/15/2016 Hospital Encounter HX [facility] Kyle Colmenares M .D., M.P.H. [address] [place], [place] [phone] (Wo rk) Social History [...] often do you attend roman catholic or anglican More than 4 time [...] 10:12 CDT Source: [facility] POWERCHART Document Id: [id number] CDT!3 documented in this encounter Plan of Treatment Not on filedocumented as of this encounter Visit Diagnoses Not on filedocumented in this encounter Additional Health Concerns Assessment Noted Time PHQ-9 Depression Total Score: 11 12/13/2014 9:50 AM CD T documented as of this encounter
--- OUTSIDE RECORDS SUMMARY | 2022-07-24 08:30 | XMS_ITS | Encounter Summary ---
:1985 Author Organization [facility] Address [address] [place] [address] Care Team Providers Name Role Phone Unavailable [...] How often do you attend taoism or hoahaoism More than 4 time s [...] Acuna M.D. - 02/15/2016 8:56 AM CDT [id number] CHIEF COMPLAINT/REASON FOR VISIT Sore throat. HISTORY [...] ACUNA MD On: 02/18/2016 05:30 PM Source: [facility] MHSDOLBEYNONRADSYS Document Id: [id number] documented in this encounter Miscellaneous Notes Miscellaneous - Timbo Acuna M.D. - 02/15/2016 10:25 AM CDT Work Excuse February 15, 2016 PUNEET CLAYTON [address] [facility] [id number] Dear PUNEET CLAYTON, You were examined in [...] 02/16/2016 Notes: _ Sincerely, TIMBO ACUNA [address] [place] [address] Electronic Signature Electronically Signed By: TIMBO ACUNA MD On: February 15, 2016 This document has images extracted. Source: [facility] POWERCHART Document Id: [id number] Miscellaneous - Craig Tolentino, L.P.N. - 02/15/2016 9:21 AM CDT Adult Civil Litigation Attorney Intake/History Adult Civil Litigation Attorney Intake/History Entered On: 02/15/2016 9:24 CDT Performed [...] ft 2 inch(es), 62 inch(es)) CRAIG TOLENTINO [facility] - 02/15/2016 9:21 CDT General Info Information Given By : Patient Preferred Communication Mode : Verbal Languages : Kenyan Is Patient Female and 13-50 no hysterectomy : Yes Status : Patient denies Are you ? : No CRAIG TOLENTINO [facility] - 02/15/2016 9:21 CDT Subjective Pain Symptoms : Yes CRAIG TOLENTINO [facility] - 02/15/2016 9:21 CDT Pain Scale Pain Scale Verbal 0-10 : Open CRAIG TOLENTINO [facility] - 02/15/2016 9:21 CDT Pain Pain Assessment Grid Pain 1 Location : Throat Intensity : 8 CRAIG TOLENTINO [facility] - 02/15/2016 9:21 CDT Dependent Habits Exposure to Tobacco Smoke : Patient smokes Smoking Status : Current every day smoker Tobacco 2A : Yes Tobacco Use/Currently Using : Yes Tobacco Use/Last 30 Days : Yes Tobacco Use/Last 12 months : Yes Type : Cigarettes: Less than 20 per day Tobacco Use/Advised to Quit : Yes Alcohol Use : No CRAIG TOLENTINO [facility] - 02/15/2016 9:21 CDT Caffeine Use Grid Caffeine Use : Current Type : Coffee, Soft drinks Frequency : Occasionally CRAIG TOLENTINO [facility] - 02/15/2016 9:21 CDT Recreational Drug Use Grid Drug Use : None CRAIG TOLENTINO [facility] - 02/15/2016 9:21 CDT Source: [facility] Document Id: [id number] CDT!49 documented in this encounter Plan of Treatment Not on filedocumented as of this encounter Procedures Procedure Name Priority Date/Time Associated Diagnosis Comme nts RAPID STREP A Routine 02/15/2016 9:27 AM Results for this SCREEN CDT procedure are i n the results section. documented in this encounter Results (ABNORMAL) Rapid Strep A Screen (02/15/2016 9:27 AM CDT) [facility] gist Method Time Signature HXStrep A (POSITIVE) [...]
--- OUTSIDE RECORDS SUMMARY | 2022-07-24 08:30 | XMS_ITS | Encounter Summary ---
:1985 Author Organization [facility] Address [address] [place] [address] Care Team Providers Name Role Phone Unavailable Primary Care Provider Unavailable Encounter Details Date Type Department Care Team Description 03/05/2015 Hospital Encounter HX [facility] Jono Freedman M.D. [address] [place] [phone] Social History Tobacco Use Types Packs/Day [...] How often do you attend lutheran or episcopal More than 4 time s [...] Zavala M.D. - 03/05/2015 11:30 AM CDT [id number] CHIEF COMPLAINT/REASON FOR VISIT Throat infection. HISTORY OF PRESENT ILLNESS Puneet is a 29-year-old who comes in to see me with a 1-week history of a sore throat. She saw Dr. Alisha black in [place] on 02/27. A throat culture done was [...] left side. She saw Dr. Snyder in [place]. A CT scan suggested a left multiloculated peritonsillar abscess. She has not had a lot of problems with her tonsils previously. She does smoke less than a half a pack of cigarettes per day. She has not had throat infection of this nature previously. New patient questionnaire and medical history in [facility] reviewed. PAST MEDICAL/SURGICAL HISTORY PAST MEDICAL HISTORY: Include a history of migraines. PREVIOUS HEAD AND NECK SURGERIES: None indicated. FAMILY HISTORY Negative for bleeding disorders. ALLERGIES Penicillin. 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 Does not drink alcohol, but does smoke somewhat of less than a pack of cigarettes per day. SYSTEMS REVIEW Positive for headaches. Others are negative. MEDICATIONS Listed and reviewed in [facility]. PHYSICAL EXAMINATION She is afebrile. She does [...] Thelma Zavala M.D./robb cc: Parth Snyder M.D. [address] [address] Electronically Signed By: THELMA ZAVALA MD On: 03/05/2015 03:00 PM Source: [facility] MHSDOLBEYNMARGOT Document Id: [id number] documented in this encounter Miscellaneous Notes Telephone Encounter - Thelma Zavala M.D. - 03/11/2015 12:00 AM CDT [id number] Puneet is a 29-year-old who I saw [...] ZAVALA MD On: 03/11/2015 09:42 AM Source: [facility] MHSDOLBEYNONRADSYS Document Id: [id number] Telephone Encounter - Sarina Mark R.N. - [...] is she had any further concerns. Source: [facility] POWERCHART Document Id: [id number] Electronically signed by [facility] Workman [id number] at 01/17/2017 7:14 PM CDT Miscellaneous - Thelma Zavala M.D. - 03/05/2015 12:10 PM CDT Ambulatory Patient Summary [facility] [address], [address] [place] [phone] Visit Information Name: PUNEET FRIED [facility] Number: [id number] Current Date: 03/05/2015 12:10:53 Physicians [...] day x 10 day(s) New Routed to [address] [address] EPINEPHrine (EpiPen Auto-Injector 0.3 mg injectable kit) [...] if you dont have one. Go to [email or web address] and click on Create Your Account. Then, follow the directions to complete the online form. Youll be asked for your [facility] number which you can find at the top of this document. Your Goals/Additional instructions: Source: [facility] POWERCHART Document Id: [id number] Miscellaneous - Thelma Zavala M.D. - 03/05/2015 12:10 PM CDT Ambulatory Discharge Medication List [facility] [address], [address] [place] [phone] Visit Information Name: PUNEET FRIED [facility] Number: [id number] Visit Date: 03/05/2015 12:10:51 Attending [...] day x 10 day(s) New Routed to [address] [address] EPINEPHrine (EpiPen Auto-Injector 0.3 mg injectable kit) [...] MD Signed On:05-MAR-2015 12:10:43 Additional Information: Source: [facility] POWERCHART Document Id: [id number] Miscellaneous - Mariaelena Dominguez, R.N. - 03/05/2015 11:36 AM CDT Adult Staff Psychiatrist Intake/History Adult Staff Psychiatrist Intake/History Entered On: 03/05/2015 11:40 CDT Performed On: 03/05/2015 11:36 CDT by MARIAELENA DOMINGUEZ military education coordinator Chief Complaint : left peritonsillar abcess Temperature [...] Information Given By : Patient Languages : Australian Is Patient Female and [...] MARIAELENA DOMINGUEZ - 03/05/2015 11:36 CDT Source: [facility] [employer] Document Id: [id number] CDT!41 documented in this encounter Plan of [...]
--- OUTSIDE RECORDS SUMMARY | 2022-07-24 08:30 | XMS_ITS | Encounter Summary ---
:1985 Author Organization [facility] Address [address] [place] [address] Care Team Providers Name Role Phone Unavailable Primary Care Provider Unavailable Encounter Details Date Type Department Care Team Description 03/22/2015 Hospital Encounter HX [facility] Barbra Voar M.D. [address] [place] [phone] (Wo rk) Social History Tobacco Use [...] How often do you attend holiness or restorationism More than 4 time s [...] restricted diffusion or infarct. Marcio Briceno MD. [id number] 20-Mar-2015 10:52 [1] IMPRESSION/REPORT/PLAN 1. Cyst Brain [...] Ordered: OV Est Pt Level 2 - 771[address] - 10 min FOOTNOTES [1]MR Brain w/ + w/o contrast; CATHI MONTIEL 03/20/2015 10:30 CDT Electronically Signed By: LEONORA NATHAN MD On: 03/22/2015 10:41 AM Source: [facility] POWERCHART Document Id: [id number] documented in this encounter Miscellaneous Notes Miscellaneous - Francesca Lozada LBrittaneyPBrittaneyNBrittaney - 03/22/2015 8:03 AM CDT Health Assessment Health Assessment Entered On: 03/22/2015 8:04 CDT Performed On: 03/22/2015 8:03 CDT by FRACNESCA LOZADA LPN Health Assessment Complete Health Assessment [...] None Behavioral Health Screen/Safety Assmt : No Tenriism Preference : No qualifying data available. FRANCESCA LOZADA LPN - 03/22/2015 8:03 CDT Advance Directive Advanced Directives : No Advance Directive Additional Information : No FRANCESCA LOZADA LPN - 03/22/2015 8:03 CDT Educ Needs Learning Style Preference Adult Grid Patient : None Family : None FRANCESCA LOZADA LPN - 03/22/2015 8:03 CDT Source: [facility] POWERCHART Document Id: [id number] CDT!35 Miscellaneous - Francesca Lozada L.P.N. - 03/22/2015 7:59 AM CDT Adult Video Clerk Intake/History Adult Video Clerk Intake/History Entered On: 03/22/2015 8:02 CDT Performed [...] 03/22/2015 7:59 CDT General Info Languages : Burmese Is Patient Female and 13-50 no hysterectomy [...] Cigarette Use Packs/Day : 0.5 FRANCESCA LOZADA [facility] - 03/22/2015 7:59 CDT Alcohol Use : No FRANCESCA LOZADA [facility] - 03/22/2015 7:59 CDT Caffeine Use Grid Caffeine Use : Current Type : Coffee, Soft drinks Frequency : Occasionally FRANCESCA LOZADA [facility] - 03/22/2015 7:59 CDT Recreational Drug Use Grid Drug Use : None FRANCESCA LOZADA [facility] - 03/22/2015 7:59 CDT Source: [employer] Document Id: [id number] CDT!51 documented in this encounter Plan of Treatment Not on filedocumented as of this encounter Visit Diagnoses Not on filedocumented in this encounter Additional Health Concerns Assessment Noted Time PHQ-9 Depression Total Score: 11 12/13/2014 9:50 AM CD T documented as of this encounter
--- OUTSIDE RECORDS SUMMARY | 2022-07-24 08:30 | XMS_ITS | Encounter Summary ---
:1985 Author Organization [facility] Address [address] [place] [address] Care Team Providers Name Role Phone Unavailable Primary Care Provider Unavailable Encounter Details Date Type Department Care Team Description 11/24/2016 Hospital Encounter HX [facility] Marisol Lopez APRN, C.N.P. [address] [place] [address] (Wo rk) Social History Tobacco [...] How often do you attend sikh or mosque More than 4 time s [...] Coding Summary-Paper Based CODING DATE: 11/27/[address] [facility] STATUS: * Discharged to Home or Self Care [facility]: REASON FOR VISIT DX: [...] ROLDAN Date Saved: 11/27/2016 10:20 am Source: [employer] Document Id: [id number] Miscellaneous - Leonora Villaseñor RBrittaneyN. - 11/24/2016 12:58 PM CDT From: LEONORA VILLASEÑOR CNP, RN Sent: 11/24/2016 12:58:55 CDT patient notified of ultrasound results. she will schedule new ob visit as soon as she is able. Source: [employer] Document Id: [id number] Electronically signed by [facility] Surgeon Chief [id number] at 02/02/2017 6:27 AM CDT documented in this encounter Plan of Treatment Not on filedocumented as of this encounter Visit Diagnoses Not on filedocumented in this encounter Additional Health Concerns Assessment Noted Time PHQ-9 Depression Total Score: 11 12/13/2014 9:50 AM CD T documented as of this encounter
--- OUTSIDE RECORDS SUMMARY | 2022-07-24 08:30 | XMS_ITS | Encounter Summary ---
:1985 Author Organization [facility] Address [address] [place] [address] Care Team Providers Name Role Phone Unavailable Primary Care Provider Unavailable Encounter Details Date Type Department Care Team Description 10/29/2016 Hospital Encounter HX [facility] ME Maureen Hooker, LATEX FASHIONS DESIGNER, C.N.P., D. N.P. [address] [place] [address] (Wo rk) Social History Tobacco [...] How often do you attend moravian or tenriism More than 4 time s [...] Comments Blood Pressure 144/90 10/29/2016 9:32 AM NUTRITIONAL SERVICES DIRECTOR Pulse 104 10/29/2016 9:32 AM NUTRITIONAL SERVICES DIRECTOR Temperature - - Respiratory Rate 20 10/29/2016 9:28 AM NUTRITIONAL SERVICES DIRECTOR Oxygen Saturation - - Inhaled Oxygen Concentration - - Weight 149 kg (329 lb 5.9 oz) 10/29/2016 9:28 AM NUTRITIONAL SERVICES DIRECTOR Height 157 cm (5' 1.81) 10/29/2016 9:32 AM NUTRITIONAL SERVICES DIRECTOR Body Mass Index 60.61 10/29/2016 9:28 AM NUTRITIONAL SERVICES DIRECTOR documented in this encounter Medications at Time [...] Panel OV Est Pt Level 4 - 41736 - 25 min 2. Missed Menses test is POSITIVE today. She was advised to start a vitamin today and follow up with her OBGYN soon for her first ultrasound. Ordered: OV Est Pt Level 4 - 80939 - 25 min 3. Headache Migraine Tylenol for migraines. We will also trial a 2-week course of an antihistamine and flonase nasal spray for possible sinus headaches. Ordered: OV Est Pt Level 4 - 94451 - 25 min Sinusitis Allergic See #2. Ordered: fluticasone nasal, 2 spray(s), Nostrils(Both), Daily, allergies, # 16 gm, 4 Refill(s), Maintenance,Pharmacy: [facility] loratadine, 10 mg = 1 tab(s), PO, Daily, x 30 day(s), # 30 tab(s), 11 Refill(s), Acute, over the counter medication (Rx) OV Est Pt Level 4 - 47150 - 25 min Patient was instructed to [...] C.N.P., D.N.P On: 10/29/2016 12:26 PM Source: [facility] POWERCHART Document Id: [id number] ITIONAL SERVICES DIRECTOR documented in this encounter Miscellaneous Notes Miscellaneous - Rylee Hooker APRN, C.N.P., Priti.N.P. - 10/29/2016 10:07 AM NUTRITIONAL SERVICES DIRECTOR Ambulatory Patient Summary [address] [place] [id number] Visit Information Name: PUNEET CLAYTON [facility] Number: [id number] Current Date: 10/29/2016 10:07:20 [...] nasal (Flonase 50 mcg/inh nasal spray) 2 [place](s), Nostrils(Both), once a day allergies New Routed to [address] [id number] furosemide (furosemide 20 mg oral tablet) 1 Tablet(s), Oral, once a day swelling New Routed to [facility] [address] [place] [address] ibuprofen (ibuprofen 400 mg oral tablet) 1 Tablet(s), Oral, every 4 hours as needed for Pain / FeverTake with food loratadine (Claritin 10 mg oral tablet) 1 Tablet(s), Oral, once a day x 30 day(s) New rizatriptan (Maxalt-SOIL CONSERVATION TECHNICIAN 10 mg oral tablet, disintegrating) 1 Tablet(s), Oral, as directed as needed for Migraine headache Take 1 tablet at onset of headache. Repeat after two hours if needed. New Routed to [address] [address] Stop Taking the Following Medications: SUMAtriptan (Imitrex [...] Appointments Date Time Location Provider 11/05/2016 12:45 [facility] Jimmie CERON, Venu Gomez Attention: Contact [...] you dont have one. Go to [email or web address] and click on Create Your Account. Then, follow the directions to complete the online form. Youll be asked for your [facility] number which you can find at the top of this document. Your Goals/Additional instructions: Source: [facility] POWERCHART Document Id: [id number] ITIONAL SERVICES DIRECTOR Miscellaneous - Rylee Hooker APRN C.N.P., D.N.P. - 10/29/2016 10:07 AM NUTRITIONAL SERVICES DIRECTOR Ambulatory Discharge Medication List [address] [place] [id number] Visit Information Name: PUNEET CLAYTON [facility] Number: [id number] Current Date: 10/29/2016 10:07:19 [...] nasal (Flonase 50 mcg/inh nasal spray) 2 [place](s), Nostrils(Both), once a day allergies New Routed to [address] [address] furosemide (furosemide 20 mg oral tablet) 1 Tablet(s), Oral, once a day swelling New Routed to [address] [id number] ibuprofen (ibuprofen 400 mg oral tablet) 1 Tablet(s), Oral, every 4 hours as needed for Pain / FeverTake with food loratadine (Claritin 10 mg oral tablet) 1 Tablet(s), Oral, once a day x 30 day(s) New rizatriptan (Maxalt-SOIL CONSERVATION TECHNICIAN 10 mg oral tablet, disintegrating) 1 Tablet(s), Oral, as directed as needed for Migraine headache Take 1 tablet at onset of headache. Repeat after two hours if needed. New Routed to [address] [id number] Stop Taking the Following Medications: SUMAtriptan (Imitrex [...] D.N.P Signed On:29-OCT-2016 10:07:14 Additional Information: Source: [facility] [employer]CHART Document Id: [id number] ITIONAL SERVICES DIRECTOR Leilani - Craig Tolentino L.P.N. - 10/29/2016 9:32 AM CST Ambulatory Vitals Height Weight Ambulatory Vitals Height Weight Entered On: 10/29/2016 9:33 NUTRITIONAL SERVICES DIRECTOR Performed On: 10/29/2016 9:32 NUTRITIONAL SERVICES DIRECTOR by CRAIG TOLENTINO LPN Vitals/Ht/Wt Peripheral Pulse Rate : 104 /min (HI) Systolic Blood Pressure : 144 mmHg (HI) Diastolic Blood Pressure : 90 mmHg (HI) NIBP Mean : 108 mmHg BP Location : Left upper extremity Blood Pressure Cuff Size : Large Height : 157 cm(Converted to: 5 ft 2 inch(es), 62 inch(es)) CRAIG TOLENTINO LPN - 10/29/2016 9:32 NUTRITIONAL SERVICES DIRECTOR Source: [facility] [employer] Document Id: [id number] NUTRITIONAL SERVICES DIRECTOR!9 ITIONAL SERVICES DIRECTOR Leilani - Craig Tolentino L.P.N. - 10/29/2016 9:28 AM CST Adult Household Coordinator Intake/History Adult Household Coordinator Intake/History Entered On: 10/29/2016 9:31 NUTRITIONAL SERVICES DIRECTOR Performed On: 10/29/2016 9:28 NUTRITIONAL SERVICES DIRECTOR by CRAIG TOLENTINO LPN Intake Chief Complaint [...] 60.61 kg/m2 CRAIG TOLENTINO LPN 10/29/2016 9:28 NUTRITIONAL SERVICES DIRECTOR General Info Information Given By : Patient Preferred Communication Mode : Verbal Languages : Prydeinig Is Patient Female and 13-50 no hysterectomy : Yes Status : Possible unconfirmed Are you ? : No CRAIG TOLENTINO LPN 10/29/2016 9:28 NUTRITIONAL SERVICES DIRECTOR Subjective Pain Symptoms : Yes CRAIG TOLENTINO LPN 10/29/2016 9:28 NUTRITIONAL SERVICES DIRECTOR Pain Scale Pain Scale Verbal 0-10 : Open CRAIG TOLENTINO LPN 10/29/2016 9:28 NUTRITIONAL SERVICES DIRECTOR Pain Pain Assessment Grid Pain 1 Location : Head Intensity : 5 CRAIG TOLENTINO LPN 10/29/2016 9:28 NUTRITIONAL SERVICES DIRECTOR Dependent Habits Exposure to Tobacco Smoke : Patient smokes Smoking Status : Current every day smoker Tobacco 2A : Yes Tobacco Use/Currently Using : Yes Tobacco Use/Last 30 Days : Yes Tobacco Use/Last 12 months : Yes Type : Cigarettes: Less than 20 per day Tobacco Use/Advised to Quit : Yes Alcohol Use : No CRAIG TOLENTINO LPN 10/29/2016 9:28 NUTRITIONAL SERVICES DIRECTOR Caffeine Use Grid Caffeine Use : Current Type : Coffee, Soft drinks Frequency : Occasionally CRAIG TOLENTINO LPN - 10/29/2016 9:28 NUTRITIONAL SERVICES DIRECTOR Recreational Drug Use Grid Drug Use : None CRAIG TOLENTINO LPN 10/29/2016 9:28 NUTRITIONAL SERVICES DIRECTOR [facility] POWER[facility] Document Id: [id number] NUTRITIONAL SERVICES DIRECTOR!55 ITIONAL SERVICES DIRECTOR documented in this encounter Plan of Treatment Not on filedocumented as of this encounter Procedures Procedure Name Priority Date/Time Associated Diagnosis Comme nts BASIC METABOLIC Routine 10/29/2016 10:16 AM Resul ts for this PANEL, S/P NUTRITIONAL SERVICES DIRECTOR procedure are i n the results section. TEST, U Routine 10/29/2016 10:00 AM Res ults for this NUTRITIONAL SERVICES DIRECTOR procedure are i n the results section. documented in this encounter Results BMP (Basic Metabolic Panel) (10/29/2016 10:16 AM NUTRITIONAL SERVICES DIRECTOR) P athologist Signature Sodium, S 140 135 [...] POWERCHART MMOLL HXeGFR (MDRD) >60 >=60 POWERCHART [id number] eGFR >60 >=60 POWERCHART Black/ [id number] Kosovan Glucose 125 70 - 139 POWERCHART MGDL Specimen (Source) Anatomical Collection Method Collection Time Re ceived Time Location / / Volume Laterality Blood 10/29/2016 10:16 AM NUTRITIONAL SERVICES DIRECTOR Rylee Hooker APRN C.N.P., D.N.P. LAB BLOOD ADD-ON Performing Organization Address City/State/ZIP Code Phon e Number POWERCHART Test, Qualitative, Urine (10/29/2016 10:00 AM NUTRITIONAL SERVICES DIRECTOR) Patholo gist Method Time Signature HXBeta-hCG Positive POWERCHART Qualitative Urine Specimen (Source) Anatomical Collection Method Collection Time Re ceived Time Location / / Volume Laterality Urine 10/29/2016 10:00 AM NUTRITIONAL SERVICES DIRECTOR Rylee Hooker APRN, C.N.P., D.N.P. LAB URINE ORDERAB LES Performing Organization Address City/State/ZIP Code Phon e Number POWERCHART documented in this encounter Visit Diagnoses Not on filedocumented in this encounter Additional Health Concerns Assessment Noted Time PHQ-9 Depression Total Score: 11 12/13/2014 9:50 AM CD T documented as of this encounter
--- OUTSIDE RECORDS SUMMARY | 2022-07-24 08:30 | XMS_ITS | Encounter Summary ---
:1985 Author Organization [facility] Address [address] [place] [address] Care Team Providers Name Role Phone Unavailable Primary Care Provider Unavailable Encounter Details Date Type Department Care Team Description 01/06/2016 Hospital Encounter HX [facility] ME Ashwin Bundy, P.A.-C. [address] [place], [place] [phone] (Wo rk) Social History Tobacco Use Types [...] often do you attend roman catholic or evangelical More than 4 time s [...] Ordered: OV Est Pt Level 4 - 59576 - 25 min Total time spent 25 minutes, 15 minutes counseling the patient regarding sun care for skin (no tanning beds, cover when in the sun and wear sun screen) and performing the above procedure. Electronically Signed By: CATRACHO NAZARIO P.A.-C. On: 01/08/2016 07:59 AM Source: [employer] POWERCHART Document Id: [id number] documented in this encounter Miscellaneous Notes Miscellaneous [...] Patient ( ) ( ) Call for Automatic Profile Sander Operator ( ) Follow up on Results ( ) Other: PROVIDER: ( ) Call Physician ( ) Call Pharmacist ( ) Call Lab ( ) Other: Special Instructions: Comments: Source: [facility] POWERCHART Document Id: [id number] Electronically signed by Roland, [facility] Forest Resources Professor [id number] at 01/16/2017 3:01 PM CDT Miscellaneous - [...] Name Value 01/06/2016 09:25 Surg IV Accn-[place] [id number] 01/06/2016 09:25 Surg IV Addr-[place] See Comment 01/06/2016 09:25 Surg IV FnlDiag-[place] See Comment 01/06/2016 09:25 Surg IV Ref-[place] See Comment 01/06/2016 09:25 Surg IV SgnPath-[place] See Comment 01/06/2016 09:25 Surg IV Ts Desc-[place] See Comment [facility] Document Id: [id number] Leilani - Jude Cardona LBrittaneyP.N. - 01/06/2016 [...] CARDONA LPN - 01/06/2016 8:32 CDT [facility] Document Id: [id number] CDT!8 Leilani - Jude Cardona L.P.NBrittaney - 01/06/2016 8:25 AM CDT Adult Qa Software Tester Intake/History Adult Qa Software Tester Intake/History Entered On: 01/06/2016 8:29 CDT Performed [...] 01/06/2016 8:25 CDT General Info Languages : Nigerian Is Patient Female and 13-50 no hysterectomy : Yes Status : Patient denies Are you ? : No JUDE CARDONA SUPERVISOR [employer] - 01/06/2016 8:25 CDT Subjective Pain Symptoms : No JUDE CARDONA [facility] - 01/06/2016 8:25 CDT Dependent Habits Exposure [...] JUDE CARDONA LPN 01/06/2016 8:25 CDT Source: [facility] [employer] Document Id: [id number] CDT!40 documented in this encounter Plan of Treatment Not on filedocumented as of this encounter Procedures Procedure Name Priority Date/Time Associated Diagnosis Comme [facility] SURGICAL PATHOLOGY Routine 01/06/2016 9:25 AM Res ults for this CDT procedure are i n the results section. documented in this encounter Results Pathology Anatpath Wet Tissue (01/06/2016 9:25 AM CDT) [facility] Method Time Signature HXSurg IV [id number] POWERCHART [facility] HXSurg IV See Comment POWERCHART Ref-[place] Comment: RESULT: Eusebio Nathan HXSurg IV [facility] See Comment POWERCHA RT Comment: [facility] [address] [place] [address] SLIDE DISPOSITION: HXSurg IV [facility] See Comment POWER CHART Comment: [id number] A1 A. Received in formalin labeled with [...] nape of neck XRSR Path [facility] POWER CHART Comment: A. ??Skin, right neck, punch biopsy: ??L jacqueline irene. Participated in interpretation: Dr. Blane Shepherd. Pager: [phone]. As the signing pathologist, I verify fidelina t I have examined all relevant slides/materials for the specim en(s) and rendered or confirmed the diagnosis. HXSurg IV [facility] See Comment POWER CHART Comment: RESULT: 01/08/2016 15:55 Interpreted by: Lucas Lucia M.D. Report electronically signed by Lucas grey M.D. Transcribed by: amelia 01/08/2016 15:17:34 Test Performed by: [address] [address] [address] Light Lamp Cleaner: Rubio Marshall II, M.D., Ph.D. Specimen (Source) [...]
--- OUTSIDE RECORDS SUMMARY | 2022-07-24 08:30 | XMS_ITS | Encounter Summary ---
:1985 Author Organization [facility] Address [address] [place] [address] Care Team Providers Name Role Phone Unavailable Primary Care Provider Unavailable Encounter Details Date Type Department Care Team Description 11/05/2014 - Hospital En[facility] John Berman 05/22/2015 Mago Purdy, M.S. [address] [place] [phone] Social History Tobacco Use Types Packs/Day Years [...] How often do you attend pentecostalism or gnosticist More than 4 time s [...] WANG PT On: 12/31/2014 08:57 AM Source: [employer] POWERCHART Document Id: [id number] documented in this encounter Progress Notes Dev [...] as able. Total Visit Time: 25 minutes Care Rep Present NA Electronically Signed By: DEV WANG PT On: 11/28/2014 11:31 AM Source: [employer] Document Id: [id number] Dev Wang P.T. - 11/21/2014 12:33 PM [...] as able. Total Visit Time: 27 minutes Care Rep Present NA Electronically Signed By: DEV WANG PT On: 11/21/2014 12:41 PM Source: [employer] Document Id: [id number] Daniel Craft P.T. - 11/16/2014 11:17 AM [...] cervical stabilization. Total Visit Time: 22 minutes Care Rep Present NA Electronically Signed By: DANIEL CRAFT PT On: 11/16/2014 11:20 AM Source: [facility] POWERCHART Document Id: [id number] Dev Wang P.T. - 11/07/2014 10:56 AM [...] cervical stabilization. 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 This plan of care has been discussed with the patient/skin care technician and the patient/skin care technician is in agreement. Frequency / Duration: Patient [...] huma stabilization. TOTAL VISIT TIME: 45 minutes CUSTOM MARINE CANVAS FABRICATOR PRESENT NA MULTIDISCIPLINARY PATIENT / FAMILY EDUCATION [...] MONACO PA-C On: 11/05/2014 12:11 PM Source: [employer] Document Id: [id number] documented in this encounter Miscellaneous Notes Miscellaneous - Conversion, Historical Provider Ser - 11/08/2014 8:03 AM CDT Coding Summary-Paper Based CODING DATE: 11/08/2014 FINAL [facility] STATUS: Still Patient/Expected to Rtn Oupt [facility] PAYOR: [employer] ADMIT DX: V57.1 Care [...] Revised Date Saved: 11/08/2014 08:03 am Source: [facility] POWERCHART Document Id: [id number] documented in this encounter Plan of Treatment Not on filedocumented as of this encounter Visit Diagnoses Not on filedocumented in this encounter Additional Health Concerns Assessment Noted Time PHQ-9 Depression Total Score: 18 05/02/2014 9:45 AM CD T documented as of this encounter
--- OUTSIDE RECORDS SUMMARY | 2022-07-24 08:30 | XMS_ITS | Encounter Summary ---
:1985 Author Organization [facility] Address [address] [place] [address] Care Team Providers Name Role Phone Unavailable Primary Care Provider Unavailable Encounter Details Date Type Department Care Team Description 11/16/2016 Hospital Encounter HX [facility] ME Keith Nguyen M.D. [address] [place] [phone] (Wo rk) Social History Tobacco [...] How often do you attend confucianism or confucianist More than 4 time s [...] Name MBO Review Rapid Strep A Source: [facility] [employer] Document Id: [id number] Electronically signed by Conversion, [facility] Research Technician [id number] at 02/02/2017 2:11 AM CDT documented in [...] Strep A Screen (11/16/2016 9:30 AM CDT) [facility] Method Time Signature HXRapid Strep POWERCHART Confirmation HXPre Pending POWERCHART HXFinal NEG POWERCHART HXFinal [facility] POWERCHART [facility] [address] Specimen Anatomical Collection Method Collection Time Receive d Time (Source) Location / / Volume Laterality Throat 11/16/2016 9:30 AM 7 9:30 CDT AM CDT Keith Nguyen M.D. LAB MICROBIOLOGY - GENERAL O RDERABLES Performing Organization Address City/State/ZIP Code Phon e Number POWERCHART Rapid Strep A Screen (11/16/2016 9:30 AM CDT) [facility] Method Time Signature HXStrep A POWERCHART [...]
--- OUTSIDE RECORDS SUMMARY | 2022-07-24 08:30 | XMS_ITS | Encounter Summary ---
:1985 Author Organization [facility] Address [address] [place] [address] Care Team Providers Name Role Phone Unavailable Primary Care Provider Unavailable Encounter Details Date Type Department Care Team Description 11/09/2016 Hospital Encounter HX [facility] Ashwin Bundy P.ACalistaCBrittaney [address] [place], [place] [phone] (Wo rk) Social History Tobacco Use Types [...] How often do you attend yarsanism or protestant More than 4 time s [...] convenient for you! From: [place]UNE[place] C[place]TON To: [facility] (SIMULATION SPECIALIST) Sent: 11/16/2016 11:13 a.m. CDT Subject: RE: [...] hour appointment. Please call the clinic in [place], talk with Tejal in [facility] to schedule! talk soon! Leonora Villaseñor Source: [facility] [employer] Document Id: [id number] Electronically signed by Conversion, [facility] Fence Manufacture Supervisor [id number] at 02/02/2017 2:11 AM CDT Miscellaneous - [...] hour appointment. Please call the clinic in [place], talk with Tejal in [facility] to schedule! talk soon! Leonora Villaseñor Source: [facility] [employer] Document Id: [id number] Electronically signed by Conversion, [facility] Fence Manufacture Supervisor [id number] at 02/02/2017 2:11 AM CDT documented in [...] Performed At Patho logist Time Signature Beta-HCG, 95062.0 <=4.9 IUL POWERCHART Quantitative, (H) S Comment: [...]
--- OUTSIDE RECORDS SUMMARY | 2022-07-24 08:31 | XMS_ITS | Encounter Summary ---
:1985 Author Organization [facility] Address [address] [place] [address] Care Team Providers Name Role Phone Unavailable [...] How often do you attend rastafari or methodist More than 4 time s [...] Magallanes, Ph.D. - 04/15/2012 12:00 AM CDT [id number] LETTER Carol Dowell Juarez [address] [place] [phone] April 15, 2012 Dear Carol: Our records [...] to keep this appointment, please call the [facility] [place] [facility] as soon as possible at or toll-free to reschedule or cancel. We look forward to hearing from you. Thank you, [facility] [place] Source: [facility] [employer] Document Id: [id number] documented in this encounter Plan of Treatment Not on filedocumented as of this encounter Visit Diagnoses Not on filedocumented in this encounter
--- OUTSIDE RECORDS SUMMARY | 2022-07-24 08:31 | XMS_ITS | Encounter Summary ---
:1985 Author Organization [facility] Address [address] [place] [address] Care Team Providers Name Role Phone Unavailable Primary Care Provider Unavailable Encounter Details Date Type Department Care Team Description 05/04/2014 Hospital Encounter HX [facility] Oralia San O.D. Social History Tobacco [...] How often do you attend jain or baptism More than 4 time s [...] ( ORTHO ) Current RX: Sphere Cylinder [place] Add Prism Right Eye ( -2.00 ) [...] ROACH OD On: 05/04/2014 11:27 AM Source: [facility] POWERCHART Document Id: [id number] documented in this encounter H&P Notes Oralia Roach O.D. - 05/04/2014 10:37 AM CDT [id number] The patient is in today noticing some [...] given for new glasses. Trials for Acuvue [place] were dispensed along with Biotrue kit. Patient [...] ROACH OD On: 05/07/2014 09:34 AM Source: [facility] MHSDOLBEYNONRADSYS Document Id: [id number] documented in this encounter Miscellaneous Notes Miscellaneous [...] if needed ) ( ) Call for Printing Shop Supervisor ( ) Follow up on Results ( ) Other: PROVIDER: ( ) Call Physician ( ) Call Pharmacist ( ) Call Lab ( ) Other: Special Instructions: Comments: Source: [facility] POWERCHART Document Id: [id number] Electronically signed by [facility] Supervisor Wall [employer] Department [id number] at 01/19/2017 11:34 AM CDT Miscellaneous - Oralia Roach O.D. - 05/04/2014 11:49 AM CDT Ambulatory Patient Summary [facility] [address] [place] [address] [address] [place], [place] [phone] Visit Information Name: FRIEDPUNEET CLAY CHRISTIANO [facility] Number: [id number] Current Date: 05/04/2014 11:49:30 [...] appointment detail needed. Your Goals/Additional instructions: Source: [facility] POWERCHART Document Id: [id number] Miscellaneous - Oralia Roach O.D. - 05/04/2014 11:49 AM CDT Ambulatory Discharge Medication List [facility] [address] [place], [place] [phone] Visit Information Name: PUNEET FRIED [facility] Number: [id number] Visit Date: 05/04/2014 11:49:29 [...] OD Signed On:04-MAY-2014 11:48:28 Additional Information: Source: [facility] POWERCHART Document Id: [id number] Miscellaneous - Vu Craven C.O.A. 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 Test Department Helper Intake/History Adult Test Department Helper Intake/History Entered On: 05/04/2014 10:51 CDT Performed On: 05/04/2014 10:51 CDT by VU CRAVEN Intake Chief Complaint : EYE EXAM Height : 158 cm(Converted to: 5 ft 2 inch(es), 62 inch(es)) VU CRAVEN - 05/04/2014 10:51 CDT General Info Information Given By : Patient Languages : Italian Is Patient Female and 13-50 no hysterectomy [...] VU CRAVEN - 05/04/2014 10:51 CDT Source: [employer] Document Id: [id number] CDT!29 documented in this encounter Plan of Treatment Not on filedocumented as of this encounter Visit Diagnoses Not on filedocumented in this encounter Additional Health Concerns Assessment Noted Time PHQ-9 Depression Total Score: 18 05/02/2014 9:45 AM CD T documented as of this encounter
--- OUTSIDE RECORDS SUMMARY | 2022-07-24 08:31 | XMS_ITS | Encounter Summary ---
:1985 Author Organization [facility] Address [address] [place] [address] Care Team Providers Name Role Phone Unavailable [...] How often do you attend mormonism or orthodoxy More than 4 time s [...]
--- OUTSIDE RECORDS SUMMARY | 2022-07-24 08:31 | XMS_ITS | Encounter Summary ---
:1985 [facility] Address [address] [place] [address] Care Team Providers Name Role Phone Unavailable Primary Care Provider Unavailable Encounter Details Date Type Department Care Team Description 11/03/2012 - Hospital Encounter [facility] ED Stephen Toth M.D. 11/04/2012 Social [...] How often do you attend restorationism or mormonism More than 4 time s [...] 11/14/2012 2:53 PM CDT ED Discharge Instructions [address] [address] Name: PUNEET FRIED Date of : 1985 12:00 AM Visit Date: 11/03/2012 8:13 PM [facility] Number: [id number] Address: [address] [place] [phone] Primary Care Provider: RABIA NATHAN MD IMPORTANT: [facility] in [place] would like to thank you for allowing [...] with fevers. With: Address: When: RABIA NATHAN [address] [place] [phone] Business (1) Within As Needed Comments: Patient Education Materials: [id number] NECK SPASM [No trauma] Spasm of the [...] or vomiting Fever over 100.4??F (38.0??C) ?? [id number] [employer], [address] [place] [address]. All rights reserved. This information is not [...] a ride home with a responsible libertarian. I, PUNEET FRIED , or responsible libertarian have received this information and my questions have been answered. I have discussed any challenges I see with this plan with the nurse or physician. Patient Signature or Responsible Libertarian/Relationship Date Time Provider Signature Date Time This document has images extracted. Please consider using [employer] for all your patient education needs. Source: [facility] POWERCHART Document Id: [id number] Jeaneth Rodríguez R.N. - 11/14/2012 2:53 PM CDT ED Depart Summary [facility] Emergency Department Clinical Discharge Summary PERSON INFORMATION Name PUNEET FRIED Age 26 Years 1985 12:00 AM Sex Female Language Gabonese PCP RABIA NATHAN MD Marital Status Single N [id number] [id number] Reason ; Head pain; PAIN, BACK, RT SIDE OF HEAD Specialty Enc Type Emergency Med Service Emergency Medicine Referred by Track Group [facility] ED Discharge 11/04/2012 4:26 PM Tracking Id [id number] Checkout 11/04/2012 3:14 PM Checkin 11/03/2012 8:13 PM Acuity Dispo Type * Discharged to Home or Self Care Arrival 11/03/2012 8:13 PM Reg Status LOS 000 19:01 Address: [address] [place] [phone] Comment: PROVIDER INFORMATION Provider Role Provider Contact Time RUIZ KING MD ED Provider 11/04/12 15:11 RUIZ KING MD ED Provider 11/04/12 15:11 DIAGNOSIS Comment: PATIENT EDUCATION INFORMATION Instructions: NECK SPASM, No Trauma Follow up: With: Address: When: Return to Emergency Department Within As Needed Comments: Return to ER if you develop severe worsening, generalized headache with fevers. With: Address: When: RABIA VENITA [address] [place] [phone] Business (1) Within As Needed Comments: Source: [facility] Socialspiel Document Id: [id number] documented in this encounter Nursing Notes Rylee [...] Medical ; Code: 1231 ; Contributor System: SendUs ; Last Updated: 01/21/2012 9:41 CDT ; Life Cycle Date: 01/12/2012 ; Life Cycle Status: Active ; Responsible Provider: GLEN ACOSTA; Vocabulary: ICD-9-CM Diagnoses(Active) Head pain Date: 11/03/2012 ; Diagnosis Type: Reason For Visit ; Confirmation: Complaint of ; Clinical Dx: Head pain ; Classification: Medical ; Clinical Service: Emergency medicine ; Code: PNED ; Probability: 0 ; Diagnosis Code: [id number] Triage Chief Complaint Description : see notes Information Given By : Patient Accompanied By : Friend Mode of Arrival ED : Private vehicle Track : Medical Languages : Gabonese RYLEE ROMERO RN - 11/03/2012 20:47 CDT [...] ROMERO RN - 11/03/2012 20:47 CDT Source: [facility] [employer] Document Id: [id number] documented in this encounter ED Notes Stephen [...] selected or recorded. Surgical history: . None ([id number]). Family history: . No family history items [...] % 58.8 % Lymph % 31.9 % Walworth % 6.9 % Eos % 2.2 % Baso % 0.2 % Neutro Absolute 5.73 10(9)/L Lymph Absolute 3.10 x10(9)/L HI [place] Absolute 0.67 x10(9)/L Eos Absolute 0.21 x10(9)/L [...] TOTH MD On: 11/03/2012 09:21 PM Source: [facility] [employer] Document Id: [id number]} Rylee Romero R.N. - 11/03/2012 8:44 PM [...] Medical ; Code: 1231 ; Contributor System: SendUs ; Last Updated: 01/21/2012 9:41 CDT ; Life Cycle Date: 01/12/2012 ; Life Cycle Status: Active ; Responsible Provider: GLEN ACOSTA; Vocabulary: ICD-9-CM Diagnoses(Active) Head pain Date: 11/03/2012 ; Diagnosis Type: Reason For Visit ; Confirmation: Complaint of ; Clinical Dx: Head pain ; Classification: Medical ; Clinical Service: Emergency medicine ; Code: PNED ; Probability: 0 ; Diagnosis Code: [id number] Triage Chief Complaint Description : 26 year old female admits with compalints of right sided ocipital painx24 hrs. Pt states she has been exposed to menigitis on Wednesday Information Given By : Patient Mode of Arrival ED : Private vehicle Track : Medical Languages : Gabonese RYLEE ROMERO RN - 11/03/2012 20:44 CDT [...] ROMERO RN - 11/03/2012 20:44 CDT Source: [employer] Document Id: [id number] documented in this encounter Miscellaneous Notes Miscellaneous [...] Control : 8 Lynx Visit Level : 84728 Level 4 [place] - 11/08/2012 13:29 CDT Source: [employer] Document Id: [id number] documented in this encounter Plan of Treatment [...] % 31.9 23.0 - POWERCHART 44.0 HX Walworth % 6.9 2.0 - 18.0 POWERCHART HX [...] M.D. LAB HISTORICAL ORDERS Performing Organization Address City/[facility]/ZIP Code Phon e Number POWERCHART CRP (C-Reactive Protein) (11/03/2012 9:10 PM CDT) P athologist Signature C-Reactive 0.4 0.0 - 0.8 POWERCHART Protein (CRP), MGDL S Specimen (Source) Anatomical Collection Method Collection Time Re ceived Time Location / / Volume Laterality Blood 11/03/2012 9:10 PM CDT Stephen Toth M.D. LAB BLOOD ADD-ON Performing Organization Address City/[facility] Code Phon e Number POWERCHART documented in this encounter Visit Diagnoses Not on filedocumented in this encounter
--- OUTSIDE RECORDS SUMMARY | 2022-07-24 08:31 | XMS_ITS | Encounter Summary ---
:1985 Author Organization [facility] Address [address] [place] [address] Care Team Providers Name Role Phone Unavailable [...] How often do you attend denominational or yarsanism More than 4 time s [...]
--- OUTSIDE RECORDS SUMMARY | 2022-07-24 08:31 | XMS_ITS | Encounter Summary ---
:1985 Author Organization [facility] Address [address] [place] [address] Care Team Providers Name Role Phone Unavailable Primary Care Provider Unavailable Encounter Details Date Type Department Care Team Description 04/07/2013 Hospital Encounter [facility] Ysabel Reyes R.NBrittaney [address] [phone] Social History Tobacco Use Types [...] How often do you attend temple or scientologist More than 4 time s [...] Reyes R.N. - 04/07/2013 12:00 AM CDT [id number] Bug bite on Wednesday when she was in [place]. Pt stated bug was a flying not likely a spider . Nurse reviewed with pt the bug bite protocol Telephone Triage protocols for nurses by Cirstiane Vega 3rd edition pg 66-68, Pt is [...] Allergies reviewed and problem list reviewed. [facility] RWHXTRANSXRTFSYS Document Id: [id number] documented in this encounter Plan of Treatment Not on filedocumented as of this encounter Visit Diagnoses Not on filedocumented in this encounter
--- OUTSIDE RECORDS SUMMARY | 2022-07-24 08:31 | XMS_ITS | Encounter Summary ---
:1985 Author Organization [facility] Address [address] [place] [address] Care Team Providers Name Role Phone Unavailable [...] How often do you attend confucianist or christian More than 4 time s [...] Magallanes, Ph.D. - 11/15/2012 12:00 AM CDT [id number] LETTER Carol Dowell Juarez [address] [place] [phone] November 15, 2012 Dear Carol: In reviewing my records, I realized that I have not seen you for sometime. I am writing, therefore, to determine if you are interested in continuing therapy and desire to schedule a new appointment. If you would like an appointment, please call our entry level receptionist at [phone] or . Ifwe do not hear from you within two weeks, we will assume that your are not interested in scheduling further appointments. I look forward to hearing from you. Sincerely, Kaye Magallanes, Ph.D., L.P. Source: [facility] RWHXTRANSXRTFSYS Document Id: [id number] documented in this encounter Plan of Treatment Not on filedocumented as of this encounter Visit Diagnoses Not on filedocumented in this encounter
--- OUTSIDE RECORDS SUMMARY | 2022-07-24 08:31 | XMS_ITS | Encounter Summary ---
:1985 Author Organization [facility] Address [address] [place] [address] Care Team Providers Name Role Phone Unavailable Primary Care Provider Unavailable Encounter Details Date Type Department Care Team Description 04/05/2012 Hospital Encounter HX [facility] Gildardo Marvin M.D. [address] [place] [phone] (Wo rk) Social History Tobacco Use [...] How often do you attend congregation or sabianism More than 4 time s [...] Marvin M.D. - 04/05/2012 7:55 AM CDT [id number] IMPRESSION/REPORT/PLAN 1) Bronchitis with bacterial sinusitis with [...] MARVIN MD On: 04/06/2012 11:36 AM Source: [facility] MHSDOLBEYNONRADSYS Document Id: [id number] documented in this encounter Miscellaneous Notes Miscellaneous - Dung Noonan R.N. - 04/30/2014 3:53 PM CDT bee sting, ER From: DUNG NOONAN RN Sent: 04/30/2014 15:53:29 CDT Subject: bee sting, ER Pt has no PCP here, calls with bee sting on wrist yesterday getting worse, hand warm and red, swollen from fingers up wrist, breathing fine she reports. ER advised and notified. Source: [facility] POWERCHART Document Id: [id number] Miscellaneous - Vinicio Marvin M.D. - 04/05/2012 9:05 AM CDT Ambulatory Patient Summary [place] [id number] Visit Information Name: PUNEET FRIED Current Date: [...] No Appointments found Your Goals/Additional instructions: Source: [facility] POWERCHART Document Id: [id number] Leilani - Vinicio Marvin M.D. - 04/05/2012 9:05 AM CDT Ambulatory Depart Summary [address] [address] Visit Information Name: PUNEET FRIED Visit Date: [...] your provider for clarification. Additional Information: Source: [facility] POWERCHART Document Id: [id number] Leilani - Roosevelt Rodriges L.P.N. - 04/05/2012 8:07 AM CDT Adult Tripe Finisher Intake/History Adult Tripe Finisher Intake/History Entered On: 04/05/2012 8:11 CDT Performed [...] ACOSTA; Reviewed Date: 03/24/2012 11:30 CDT [facility] POWERCHART Document Id: [id number] documented in this encounter Plan of Treatment Not on filedocumented as of this encounter Visit Diagnoses Not on filedocumented in this encounter
--- OUTSIDE RECORDS SUMMARY | 2022-07-24 08:31 | XMS_ITS | Encounter Summary ---
:1985 Author Organization [facility] Address [address] [place] [address] Care Team Providers Name Role Phone Unavailable Primary Care Provider Unavailable Encounter Details Date Type Department Care Team Description 01/21/2012 Hospital Encounter [facility] [address] [place] [phone] (Wo rk) Social History Tobacco Use [...] How often do you attend restorationism or sikh More than 4 time s [...] Farias M.D. - 01/21/2012 12:00 AM CDT [id number] CHIEF COMPLAINT/REASON FOR VISIT Headache. HISTORY OF [...] has symmetric and coordinated finger tapping and [id number] rubbing. Strength is 5 out of 5 [...] NATHAN MD On: 01/26/2012 07:59 AM Source: [facility] MHSDOLBEYNONRADSYS Document Id: [id number] documented in this encounter Miscellaneous Notes Miscellaneous - Leonora Farias M.D. - 01/21/2012 9:53 AM CDT Ambulatory Depart Summary [address] [address] Visit Information Name: PUNEET FRIED Visit Date: [...] your provider for clarification. Additional Information: Source: [facility] POWERCHART Document Id: [id number] Miscellaneous - Leonora Farias M.D. - 01/21/2012 9:53 AM CDT Ambulatory Patient Summary [place] [address] [place] [address] Visit Information Name: PUNEET FRIED Current Date: [...] No Appointments found Your Goals/Additional instructions: Source: [facility] POWERCHART Document Id: [id number] Miscellaneous - Bessy Herrera, LBrittaneyP.N. - 01/21/2012 9:21 AM CDT Adult Edge Banding Machine Offbearer Intake/History Adult Edge Banding Machine Offbearer Intake/History Entered On: 01/21/2012 9:28 CDT Performed [...] Preferred Communication Mode : Verbal Languages : Luxembourger BESSY HERRERA LPN, 01/21/2012 9:21 CDT Subjective [...] ACOSTA; Reviewed Date: 01/12/2012 18:06 CDT Source: [employer] Document Id: [id number] documented in this encounter Plan of Treatment Not on filedocumented as of this encounter Visit Diagnoses Not on filedocumented in this encounter
--- OUTSIDE RECORDS SUMMARY | 2022-07-24 08:31 | XMS_ITS | Encounter Summary ---
:1985 Author Organization [facility] Address [address] [place] [address] Care Team Providers Name Role Phone Unavailable Primary Care Provider Unavailable Encounter Details Date Type Department Care Team Description 11/01/[address] [facility] Maureen Berman P.A.-C., M.S. [address] [place] [phone] (Wo rk) Social History Tobacco Use Types [...] How often do you attend judaism or yarsani More than 4 time s [...] P.A.-C., M.S. - 11/01/2014 9:05 AM CDT [id number] CHIEF COMPLAINT/REASON FOR VISIT Headache management. HISTORY [...] MONACO PA-C On: 11/05/2014 01:01 PM Source: [facility] MHSDOLBEYNONRADSYS Document Id: [id number] documented in this encounter Miscellaneous Notes Miscellaneous - Rosalind Berman P.A.-C., M.S. - 11/01/2014 10:51 AM CDT Normal Results Letter 01 November [address]UN[address]ET [address]RIED [address] [place] [id number] Dear PUNEET FRIED, I am pleased to [...] 150 - 450 Sincerely, ROSALIND MONACO [address] [place] [address] Electronic Signature Electronically Signed By: ROSALIND MONACO PA-C On: 01 November 2014 This document has images extracted. Source: [facility] POWERCHART Document Id: [id number] Miscellaneous - Conversion, Historical Provider Ser - 11/01/2014 9:12 AM CDT Adult Clay Carman Intake/History Adult Clay Carman Intake/History Entered On: 11/01/2014 9:14 CDT Performed [...] [facility] - 11/01/2014 9:12 CDT Source: [facility] POWERCHART Document Id: [id number]!50 documented in this encounter Plan of [...] X109L Erythrocytes 4.74 3.90 - 5.03 POWERCHART S6729S HX RDW 13.2 11.9 - 15.5 POWERCHART [...]
--- OUTSIDE RECORDS SUMMARY | 2022-07-24 08:31 | XMS_ITS | Encounter Summary ---
:1985 Author Organization [facility] Address [address] [place] [address] Care Team Providers Name Role Phone Unavailable Primary Care Provider Unavailable Encounter Details Date Type Department Care Team Description 08/02/2013 Hospital Encounter HX NO MAPPING Berny Garcia M.D. [address] [place], [place] [phone] (Wo rk) Social History [...] How often do you attend muslim or yazidism More than 4 time s [...]
--- OUTSIDE RECORDS SUMMARY | 2022-07-24 08:31 | XMS_ITS | Encounter Summary ---
:1985 Author Organization [facility] Address [address] [place] [address] Care Team Providers Name Role Phone Unavailable [...] Marisol Couch - 12/08/2011 12:00 AM CDT [id number] MARIA T Dowell [address] [phone] [facility] December 08, 2011 Dear Carol: Our records [...] from you. Thank you, [facility] Source: [facility]TRANSX[facility] Document Id: [id number] documented in this encounter Plan of Treatment Not on filedocumented as of this encounter Visit Diagnoses Not on filedocumented in this encounter
--- OUTSIDE RECORDS SUMMARY | 2022-07-24 08:31 | XMS_ITS | Encounter Summary ---
:1985 Author Organization [facility] Address [address] [place] [address] Care Team Providers Name Role Phone Unavailable [...] How often do you attend methodist or pentecostalism More than 4 time s [...]
--- OUTSIDE RECORDS SUMMARY | 2022-07-24 08:31 | XMS_ITS | Encounter Summary ---
:1985 Author Organization [facility] Address [address] [place] [address] Care Team Providers Name Role Phone Unavailable Primary Care Provider Unavailable Encounter Details Date Type Department Care Team Description 05/10/2014 Hospital Encounter [facility] Oralia San O.D. Social History [...] How often do you attend jainism or rastafarian More than 4 time s [...] ROACH OD On: 05/10/2014 09:44 AM Source: [employer] POWERCHART Document Id: [id number] documented in this encounter Miscellaneous Notes Miscellaneous - Oralia Roach O.D. - 05/10/2014 9:11 AM CDT Ambulatory Patient Summary [facility] [address] [place], [place] [phone] Visit Information Name: PUNEET FRIED [facility] Number: [id number] Current Date: 05/10/2014 09:11:03 [...] appointment detail needed. Your Goals/Additional instructions: Source: [facility] POWERCHART Document Id: [id number] YS [facility] - Oralia Roach O.D. - 05/10/2014 9:11 AM CDT Ambulatory Discharge Medication List [facility] [address], [address] [place], [place] [phone] Visit Information Name: PUNEET FRIED [facility] Number: [id number] Visit Date: 05/10/2014 09:11:02 [...] OD Signed On:10-MAY-2014 09:10:54 Additional Information: Source: [facility] POWERCHART Document Id: [id number] Leilani - Rakel Martinez C.O.ABrittaney - 05/10/2014 8:55 AM CDT Adult Honey Producer Intake/History Adult Honey Producer Intake/History Entered On: 05/10/2014 8:55 CDT Performed [...] RAKEL MARTINEZ - 05/10/2014 8:55 CDT Source: [facility] [employer] Document Id: [id number] CDT!29 documented in this encounter Plan of Treatment Not on filedocumented as of this encounter Visit Diagnoses Not on filedocumented in this encounter Additional Health Concerns Assessment Noted Time PHQ-9 Depression Total Score: 05/02/2014 9:45 AM CD T documented as of this encounter
--- OUTSIDE RECORDS SUMMARY | 2022-07-24 08:31 | XMS_ITS | Encounter Summary ---
:1985 Author Organization [facility] Address [address] [place] [address] Care Team Providers Name Role Phone Unavailable [...] How often do you attend bahai or protestant More than 4 time s [...]
--- OUTSIDE RECORDS SUMMARY | 2022-07-24 08:31 | XMS_ITS | Encounter Summary ---
:1985 Author Organization [facility] Address [address] [place] [address] Care Team Providers Name Role Phone Unavailable Primary Care Provider Unavailable Encounter Details Date Type Department Care Team Description 03/24/2012 [facility] [address] [place] [phone] (Wo rk) Social History Tobacco Use [...] How often do you attend christian or rastafarian More than 4 time s [...] Farias M.D. - 03/24/2012 12:00 AM CDT [id number] CHIEF COMPLAINT/REASON FOR VISIT Urinary frequency. HISTORY [...] expressed understanding of the content Leonora Brito M.D./[facility] Electronically Signed By: LEONORA NATHAN MD On: 04/05/2012 10:30 AM Modified by and Electronically Signed by: LEONORA NATHAN MD On: 04/05/2012 10:29 AM Source: [facility] MHSDOLBEYNONRADSYS Document Id: [id number] documented in this encounter Miscellaneous Notes Miscellaneous - Leonora Farias M.D. - 03/24/2012 11:41 AM CDT Ambulatory Patient Summary [address] [place] [address] Visit Information Name: PUNEET FRIED Current Date: [...] Source: [facility] POWERCHART Document Id: [id number] Leonora Russell M.D. - 03/24/2012 11:41 AM CDT Ambulatory Depart Summary [address] [address] Visit Information Name: PUNEET FRIED Visit Date: [...] clarification. Additional Information: Source: [facility] [employer] TherapeuticsCHART Document Id: [id number] Mimi Gaines L.P.N. - 03/24/2012 11:23 AM CDT Adult Senior It Engineer Intake/History Adult Senior It Engineer Intake/History Entered On: 03/24/2012 11:30 CDT Performed [...] Preferred Communication Mode : Verbal Languages : Chadian MIMI HERRERA LPN, RT - 03/24/2012 11:23 [...] Source: [facility] POWERCHART Document Id: [id number] documented in this encounter Plan of Treatment [...] Results Urine Microscopic (03/24/2012 11:34 AM CDT) [facility] Method Time Signature HXUr WBC 10-25 [...] POWERCHART Urinalysis, Routine (03/24/2012 11:34 AM CDT) [facility] Method Time Signature HXUr Color Yellow POWERCHART Appearance Slightly POWERCHART Cloudy Glucose Negative POWERCHART HXBILIRUBIN Negative POWERCHART Ketones, QL(U) Negative POWERCHART Specific 1.025 1.000 - POWERCHART Calhoun, POCT, U 1.030 pH, POCT, Urine 5.5 [...]
--- OUTSIDE RECORDS SUMMARY | 2022-07-24 08:31 | XMS_ITS | Encounter Summary ---
:1985 Author Organization [facility] Address [address] [place] [address] Care Team Providers Name Role Phone Unavailable Primary Care Provider Unavailable Encounter Details Date Type Department Care Team Description 04/30/2014 Hospital Encounter HX [facility] ED Remi Marvin M.D. [address] [phone] (Wo rk) Social History Tobacco [...] How often do you attend confucianism or episcopal More than 4 time s [...] 04/30/2014 7:01 PM CDT ED Discharge Instructions [address] [address] Name: PUNEET FRIED Date of : 1985 12:00 AM Visit Date: 04/30/2014 4:05 PM [facility] Number: [id number] Address: [address] [place] [phone] Primary Care Provider: MICHELLE BEAR MD IMPORTANT: [facility] in [place] would like to thank you for allowing us to assist you with your healthcare needs. The following includes patient education materials and informationregarding your injury/illness. Diagnosis: Allergy Bee Sting Active; Hives; Reaction Allergic Active Follow-Up Instructions: With: Address: When: MICHELLE BEAR [address] [place] [phone] [facility] (1) Within As Needed Comments: For recheck If symptoms worsen Your Upcoming Appointments: Date Time Location Provider No Appointments found Patient Education Materials: [id number] ALLERGIC REACTION, OTHER [local] You are having [...] Colored fluid draining from the wound ?? [phone] [place] [address]. All rights reserved. This information is not intended as a substitute for professional medical care. Always follow your healthcare professional's instructions. [id number] MEDICATION: ZYRTEC Zyrtec (generic name is cetirizine) [...] any questions that you may have.] ?? [phone] [place] [address]. All rights reserved. This information is not intended as a substitute for professional medical care. Always follow your healthcare professional's instructions. [id number] INSECT BITE Insects most often bite to [...] HOME CARE Medications: The doctor may prescribe nizu-ztv-pufghjs (OTC) medications to help relieve itching andswelling. [...] you have trouble breathing, call 911) ?? [phone] [facility], [address] [place] [address]. All rights reserved. This information is not [...] document has images extracted. Please consider using [employer] for all your patient education needs. Source: [facility] POWERCHART Document Id: [id number] Bambi Addison R.N. - 04/30/2014 7:01 PM CDT ED Depart Summary [facility] Clinical Discharge Summary PERSON INFORMATION Name PUNEET FRIED Age 28 Years 1985 12:00 AM Sex Female Language Lao PCP MICHELLE BEAR MD Marital Status Single Visit Id Visit Reason Hand pain-swelling; Bee Sting Specialty Enc Type Emergency Med Service Emergency Medicine Referred by Track Group [facility] ED Discharge 04/30/2014 6:20 PM Tracking Id [id number] Checkout 04/30/2014 6:20 PM Checkin 04/30/2014 4:05 PM Acuity 4 -Less Urgent Dispo Type * Discharged to Home or Self Care Arrival 04/30/2014 4:05 PM Reg Status Complete LOS 000 02:15 Address: [address] [place] [phone] Comment: PROVIDER INFORMATION Provider Role Provider Contact Time RUIZ MARVIN MD ED Provider 04/30/14 16:37 BAMBI ADDISON INFORMATICS SPEC Nurse 04/30/14 17:21 DIAGNOSIS Allergy Bee Sting Active; Hives; Reaction Allergic Active Comment: PATIENT EDUCATION INFORMATION Instructions: ALLERGIC REACTION, Other (Local); ZYRTEC; INSECT BITE Follow up: With: Address: When: MICHELLE BEAR [address] [place] [address] [phone] [place] [facility] (0) Within As Needed Comments: For recheck If symptoms worsen Source: [employer] Document Id: [id number] documented in this encounter ED Notes Bambi [...] ADDISON RN - 04/30/2014 18:59 CDT Source: [employer] Document Id: [id number] CDT!9 Bambi Addison R.N. - 04/30/2014 6:57 [...] ADDISON RN - 04/30/2014 18:57 CDT Source: [employer] Document Id: [id number] CDT!7 Bambi Addison R.N. - 04/30/2014 6:10 PM CDT ED Treatments and Procedures ED Treatments and Procedures Entered On: 04/30/2014 18:57 CDT Performed On: 04/30/2014 18:10 CDT by ABMBI ADDISON RN Peripheral IV Peripheral IV Assess/Intervention [...] ADDISON RN - 04/30/2014 18:55 CDT Source: [employer] Document Id: [id number] CDT!11 Bambi Addison R.N. - 04/30/2014 5:45 [...] ADDISON RN - 04/30/2014 18:52 CDT Source: [employer] Document Id: [id number] CDT!19 Bambi Addison R.N. - 04/30/2014 5:30 [...] ADDISON RN - 04/30/2014 18:50 CDT Source: [employer] Document Id: [id number] CDT!13 Ruiz Marvin M.D. - 04/30/2014 5:22 [...] (maternal) Comments: 03/13/2014 13:47 - JORY COPPOLA RETAIL MERCHANDISING MANAGER ear Grandfather (maternal) Comments: 03/13/2014 13:47 - JORY COPPOLA LPN larynx Cystic fibrosis Sister [place] - Lung cancer Grandmother (paternal, ) Comments: 03/13/2014 13:47 - JORY COPPOLA RETAIL MERCHANDISING MANAGER brain cancer Hypothyroidism Mother Myocardial infarction Father: [...] PM This document has images extracted. Source: [facility] POWERCHART Document Id: [id number]} Bambi Addison RRoverto - 04/30/2014 4:22 PM [...] Medical ; Code: 300.4 ; Contributor System: [facility]_HX_PR_UPLOAD ; Last Updated: 11/18/2013 19:04 CDT ; Life Cycle Status: Active ; Vocabulary: ICD-9-CM ; Comments: - Dysthymic disorder Headache (ICD-9-CM :784.0 ) Name of Problem: Headache ; Onset Date: 10/24/2007 ; Confirmation: Confirmed ; Classification: Medical ; Code: 784.0 ; Contributor System: [facility]_HX_PR_UPLOAD ; Last Updated: 11/18/2013 19:04 CDT [...] Medical ; Code: V22.2 ; Contributor System: [employer] ; Last Updated: 01/21/2012 9:41 CDT ; Life Cycle Date: 01/12/2012 ; Life Cycle Status: Active ; Responsible Provider: GLEN ACOSTA; Vocabulary: ICD-9-CM Diagnoses(Active) Hand pain-swelling Date: 04/30/2014 ; Diagnosis Type: Reason For Visit ; Confirmation: Complaint of ; Clinical Dx: Hand pain-swelling ; Classification: Medical ; Clinical Service: Emergency medicine ; Code: PNED ; Probability: 0 ; Diagnosis Code: [id number] Triage Chief Complaint Description : see triage note Mode of Arrival ED : Private vehicle, Ambulatory Track : Medical Languages : Lao Is Patient Female and 13-50 no hysterectomy [...] ADDISON RN - 04/30/2014 16:22 CDT Source: [facility] [employer] Document Id: [id number] CDT!53 Bambi Addison R.N. - 04/30/2014 4:11 [...] Medical ; Code: 300.4 ; Contributor System: [facility]_HX_PR_UPLOAD ; Last Updated: 11/18/2013 19:04 CDT ; Life Cycle Status: Active ; Vocabulary: ICD-9-CM ; Comments: - Dysthymic disorder Headache (ICD-9-CM :784.0 ) Name of Problem: Headache ; Onset Date: 10/24/2007 ; Confirmation: Confirmed ; Classification: Medical ; Code: 784.0 ; Contributor System: [employer]_PR_UPLOAD ; Last Updated: 11/18/2013 19:04 CDT ; [...] Medical ; Code: V22.2 ; Contributor System: [employer] ; Last Updated: 01/21/2012 9:41 CDT ; Life Cycle Date: 01/12/2012 ; Life Cycle Status: Active ; Responsible Provider: GLEN ACOSTA; Vocabulary: ICD-9-CM Diagnoses(Active) Hand pain-swelling Date: 04/30/2014 ; Diagnosis Type: Reason For Visit ; Confirmation: Complaint of ; Clinical Dx: Hand pain-swelling ; Classification: Medical ; Clinical Service: Emergency medicine ; Code: PNED ; Probability: 0 ; Diagnosis Code: [id number] Triage Chief Complaint Description : was stung by bee last grace and awoke this am with left wrist and hand swollen and red. Information Given By : Patient Accompanied By : Alone Mode of Arrival ED : Private vehicle, Ambulatory Track : Medical Languages : Lao Patient Informed of Triage Location : Emergency [...] : 4 -Less Urgent Tracking Group : [facility] ED BAMBI ADDISON SHRUTHI - 04/30/2014 16:11 CDT Allergy (As Of: 04/30/2014 16:17:45 CDT) Allergies (Active) penicillins Estimated Onset Date: Unspecified ; Created By: GLEN ACOSTA; Reaction Status: Active ;Category: Drug ; Substance: penicillins ; Type: Allergy ; Updated By: GLEN ACOSTA; Reviewed Date: 03/13/2014 13:40 CDT Source: [employer] Document Id: [id number] CDT!49 documented in this encounter Miscellaneous Notes Miscellaneous - Bambi Addison R.N. - 04/30/2014 7:00 PM CDT Valuables/Belongings Valuables/Belongings Entered On: 04/30/2014 19:00 CDT Performed On: 04/30/2014 19:00 CDT by BAMBI ADDISON RN Valuables/Belongings Valuables/Belongings Grid Valuables with Patient Clothes, Patient Valuables : Pants, Shirt, Shoes, Undergarments Electronic Devices : Cell phone BAMBI ADDISON RN - 04/30/2014 19:00 CDT Source: [employer] Document Id: [id number] CDT!6 Miscellaneous - Bambi Addison R.N. - [...] Control : 5 Lynx Visit Level : 71882 Level 3 Treatments Prior to Arrival : None BAMBI ADDISON RN - 04/30/2014 19:00 CDT Source: [facility] [employer] Document Id: [id number] CDT!18 documented in this encounter Plan of Treatment Not on filedocumented as of this encounter Visit Diagnoses Not on filedocumented in this encounter Additional Health Concerns Assessment Noted Time PHQ-9 Depression Total Score: 16 04/02/2014 9:58 AM CD T documented as of this encounter
--- OUTSIDE RECORDS SUMMARY | 2022-07-24 08:31 | XMS_ITS | Encounter Summary ---
:1985 Author Organization [facility] Address [address] [place] [address] Care Team Providers Name Role Phone Unavailable Primary Care Provider Unavailable Encounter Details Date Type Department Care Team Description 07/31/2014 Hospital Encounter [facility]X [facility] Pavel BELTRAN Obi, M.D. [address] [place] [address] (Wo rk) Social History Tobacco [...] How often do you attend tenriism or pentecostal More than 4 time s [...] Comments Blood Pressure 154/92 07/31/2014 10:14 AM INTERACTIVE ART DIRECTOR Pulse - - Temperature - - Respiratory Rate - - Oxygen Saturation - - Inhaled Oxygen Concentration - - Weight 143 kg (315 lb 11.2 oz) 07/31/2014 10:14 AM INTERACTIVE ART DIRECTOR Height 158 cm (5' 2.21) 07/31/2014 10:14 AM INTERACTIVE ART DIRECTOR Body Mass Index 57.36 07/31/2014 10:14 AM INTERACTIVE ART DIRECTOR documented in this encounter Procedure Notes Berny [...] CHAU MD On: 07/31/2014 10:33 AM Source: [facility] POWERCHART Document Id: [id number] RACTIVE ART DIRECTOR documented in this encounter Miscellaneous Notes Miscellaneous - Alison Monsivais L.P.N. - 07/31/2014 10:14 AM CST Adult Drafting Engineer Intake/History Adult Drafting Engineer Intake/History Entered On: 07/31/2014 10:16 INTERACTIVE ART DIRECTOR Performed On: 07/31/2014 10:14 INTERACTIVE ART DIRECTOR by ALISON MONSIVAIS LPN Intake Chief Complaint [...] kg/m2 ALISON MONSIVAIS LPN - 07/31/2014 10:14 INTERACTIVE ART DIRECTOR General Info Information Given By : Patient Languages : Kyrgyz Is Patient Female and 13-50 no hysterectomy : Yes Status : Patient denies Are you ? : No ALISON MONSIVAIS LPN - 07/31/2014 10:14 INTERACTIVE ART DIRECTOR Subjective Pain Symptoms : No ALISON MONSIVAIS LPN - 07/31/2014 10:14 INTERACTIVE ART DIRECTOR Dependent Habits Tobacco Use/Currently Using : Yes Tobacco Use/Advised to Quit : Yes Exposure to Tobacco Smoke : Patient smokes Smoking Status : Current some day smoker ALISON MONSIVAIS LPN - 07/31/2014 10:14 INTERACTIVE ART DIRECTOR Tobacco Use Grid Type : Cigarettes Cigarette Use Packs/Day : 0.5 Last Use : 04/30/2014 ALISON MONSIVAIS LPN - 07/31/2014 10:14 INTERACTIVE ART DIRECTOR Caffeine Use Grid Caffeine Use : Current Type : Coffee, Soft drinks Frequency : Daily ALISON MONSIVAIS LPN - 07/31/2014 10:14 INTERACTIVE ART DIRECTOR Recreational Drug Use Grid Drug Use : None ALISON MONSIVAIS LPN - 07/31/2014 10:14 INTERACTIVE ART DIRECTOR ID Screen Travel Within Last 21 Days : No ALISON MONSIVAIS LPN - 07/31/2014 10:14 INTERACTIVE ART DIRECTOR Source: [facility] POWERCHART Document Id: [id number] INTERACTIVE ART DIRECTOR!40 RACTIVE ART DIRECTOR documented in this encounter Plan of Treatment Not on filedocumented as of this encounter Visit Diagnoses Not on filedocumented in this encounter Additional Health Concerns Assessment Noted Time PHQ-9 Depression Total Score: 18 05/02/2014 9:45 AM CD T documented as of this encounter
--- OUTSIDE RECORDS SUMMARY | 2022-07-24 08:31 | XMS_ITS | Encounter Summary ---
:1985 Author Organization [facility] Address [address] [place] [address] Care Team Providers Name Role Phone Unavailable Primary Care Provider Unavailable Encounter Details Date Type Department Care Team Description 03/15[facility]2014 [facility] Jessica Bear M.D. [address] [place], [place] [phone] (Wo rk) Social History [...] How often do you attend zoroastrian or scientologist More than 4 time s [...] Results Letter 16 March 2014 PUNEET FRIED [address] [place] [id number] Dear PUNEET FRIED, I am pleased to [...] 03/15/2014 150 - 450 Sincerely, MICHELLE BEAR [address] [place] [phone] Electronic Signature Electronically Signed By: MICHELLE BEAR MD On: 16 March 2014 This document has images extracted. Source: [facility] POWERCHART Document Id: [id number] documented in this encounter Plan of Treatment [...] Erythrocytes 5.16 (H) 3.90 - POWERCHART 5.03 [id number] HX RDW 13.3 11.9 - POWERCHART 15.5 [...] Laterality Blood 03/15/2014 1:32 PM CDT Michelle Baer M.D. LAB BLOOD ADD-ON Performing Organization Address [...] S MGDL eGFR >60 >=60 POWERCHART Black/ [id number] Kyrgyz HXeGFR (MDRD) >60 >=60 POWERCHART [id number] Comment: Results are in mL/min/1.73m CKD Stage [...]
--- OUTSIDE RECORDS SUMMARY | 2022-07-24 08:31 | XMS_ITS | Encounter Summary ---
:1985 Author Organization [facility] Address [address] [place] [address] Care Team Providers Name Role Phone Unavailable [...] How often do you attend hindu or church More than 4 time s [...]
--- OUTSIDE RECORDS SUMMARY | 2022-07-24 08:31 | XMS_ITS | Encounter Summary ---
:1985 Author Organization [facility] Address [address] [place] [address] Care Team Providers Name Role Phone Unavailable Primary Care Provider Unavailable Encounter Details Date Type Department Care Team Description 01/25/2013 Hospital Encounter [facility] Renuka Choi M.D. [address] [place] [phone] (Wo rk) Social History Tobacco [...] How often do you attend quaker or buddhism More than 4 time s [...] Borges M.D. - 01/25/2013 9:45 AM CDT [id number] SUBJECTIVE: Carol Juarez is an 27 year [...] line 8-2-10, 06/11/10 Alcohol Use: Yes rare Hospital Sales Representative History: No history of STDs. PAP NIL [...] to procedure - YES. ASSESSMENT: Satisfactory annual sanitation tank washer exam Desires Mirena IUD removal and re-insertion Obesity PLAN: Dx: 1) Pap smear 2) GC/CT 3) Fasting lipid profile/ fasting glucose/ TSH with reflex free T4 4) Mirena IUD removed/ IUD re-insertion. Will check a TVUS to confirm proper placement PE: Reviewed health maintenance including diet, regular exercise and periodic exams. Source: [facility] RWHXTRANSXRTFSYS Document Id: [id number] Electronically signed by Conversion, [facility] Candy Catcher [id number] at 01/18/2017 6:08 PM CDT documented in this encounter Miscellaneous Notes Miscellaneous - Nyasia Borges M.D. - 01/25/2013 9:45 AM CDT [id number] January 30, 2013 Carol Juarez [address] [place] [phone] Your doctor has requested to have you return for a thryoid, glucose, and cholesterol test at this time. You may call our office at [phone] in Obstetrics/Gynecology to schedule an appointment. Please ask to schedule a LAB APPOINTMENT Please disregard this notice if you already have had this lab repeated or have already made an appointment. Sincerely, Lory Hardy Source: [facility] RWHXTRANSXRTFSYS Document Id: [id number] Electronically signed by Conversion, [facility] Candy Catcher [id number] at 01/18/2017 6:08 PM CDT documented in [...] Volume Laterality 01/26/2013 2:02 PM CDT Narrative [facility] - 10/23/19 14 9:59 PM GREEN CHAIN WORKER Negative for C. trachomatis rRNA by size worker mediated amplification. A negative result by size worker media pipe amplification does not preclude [...] PM CDT) P athologist Signature [facility] [facility] Specimen (Source) Anatomical Collection Method Collection Time Re ceived Time Location / / Volume Laterality 01/26/2013 2:02 PM CDT Historical Provider LAB HISTORICAL ORDERS Performing Organization Address City/State/ZIP Code Phon e Number [facility] Chlamydia trachomatis Amplified RNA (01/26/2013 2:02 PM CDT) Specimen (Source) Anatomical Collection Method Collection Time Re ceived Time Location / / Volume Laterality 01/26/2013 2:02 PM CDT Narrative [facility] - 10/23/19 14 9:59 PM GREEN CHAIN WORKER Negative for N. gonorrhoeae rRNA by size worker mediated amplification. A negative result by size worker media pipe amplification does not preclude [...] PM CDT) P athologist Signature [employer] [facility] Specimen (Source) Anatomical Collection Method Collection Time Re ceived Time Location / / Volume Laterality 01/26/2013 2:02 PM CDT Historical Provider LAB HISTORICAL ORDERS Performing Organization Address City/State/ZIP Code Phon e Number [facility] documented in this encounter Visit Diagnoses Not on filedocumented in this encounter
--- OUTSIDE RECORDS SUMMARY | 2022-07-24 08:31 | XMS_ITS | Encounter Summary ---
:1985 Author Organization [facility] Address [address] [place] [address] Care Team Providers Name Role Phone Unavailable Primary Care Provider Unavailable Encounter Details Date Type Department Care Team Description 01/24/2015 - Hospital Encounter [facility] ED Rizwan Dean M.D. 01/25/2015 [address] [place] [address] (Wo rk) Social History Tobacco [...] often do you attend oriental orthodox or restorationist More than 4 time s [...] 01/25/2015 12:43 AM CDT ED Discharge Instructions [address] [place] [address] Name: PUNEET FRIED Date of : 1985 12:00 AM Visit Date: 01/24/2015 10:25 PM [facility] Number: [id number] Address: [address] [place] [phone] Primary Care Provider: ALISON MONACO PA-C IMPORTANT: [facility] in [place] would like to thank you for allowing us to assist you with your healthcare needs. The following includes patient education materials and information regarding your injury/illness. Diagnosis: Angioedema Initial; Urticaria Allergic Follow-Up Instructions: With: Address: When: ALISON MONACO [address] [place] [address] Business (1) Within As Needed Comments: Your [...] Colored fluid draining from the wound ?? 7089-1207 [place] [address]. All rights reserved. This information is not intended as a substitute for professional medical care. Always follow your healthcare professional's instructions. Angioedema Angioedema (pronounced ogytq-v-toodz) is a sudden appearance of swollen patches [...] Trouble breathing ?? Severe abdominal pains ?? [address], [place] [address]. All rights reserved. This information is not [...] document has images extracted. Please consider using [employer] for all your patient education needs. Source: [facility] POWERCHART Document Id: [id number] Pati Shepard R.N. - 01/25/2015 12:43 AM CDT ED Depart Summary [facility] Emergency Department Clinical Discharge Summary PERSON INFORMATION Name PUNEET FRIED Age 29 Years 1985 12:00 AM Sex Female Language Equatorial Guinean PCP ALISON MONACO PA-C Marital Status Single Visit Id Visit Reason Insect bite and/or sting; ALLERGIC REACTION TO BUG BITE Specialty Enc Type Emergency Med Service Emergency Medicine Referred by Track Group [facility] ED Discharge 01/25/2015 12:35 AM Tracking Id [id number] Checkout 01/25/2015 12:35 AM Checkin 01/24/2015 10:25 PM Acuity 4 -Less Urgent Dispo Type * Discharged to Home or Self Care Arrival 01/24/2015 10:25 PM Reg Status Complete LOS 000 02:10 Address: [address] [place] [phone] Comment: PROVIDER INFORMATION Provider Role Provider Contact Time KAREY PENA GROUND WORKER Nurse 01/24/15 22:32 PATI SHEPARD RN ED Nurse 01/24/15 23:08 SLIM DEAN MD ED Provider 01/24/15 23:37 DIAGNOSIS Angioedema Initial; Urticaria Allergic Comment: PATIENT EDUCATION INFORMATION Instructions: ALLERGIC REACTION, Insect (General); ANGIOEDEMA Follow up: With: Address: When: ALISON MONACO [address] [place] [address] [id number] [facility] () Within As Needed Comments: Source: [facility] POWERCHART Document Id: [id number] documented in this encounter ED Notes Pati [...] SHEPARD RN - 01/25/2015 0:40 CDT Source: [facility] Spring[employer] Document Id: [id number] CDT!7 Slim Dean - 01/24/2015 11:36 PM [...] 300.4 / Confirmed Dysthymic disorder Resolved: / [id number]. Physical Examination Vital Signs: Vital Signs 01/24/2015 [...] Time 01/25/2015 00:35:00, to home. Prescriptions: Prescription [facility]: EpiPen Auto-Injector 0.3 mg injectable kit [...] DEAN MD On: 01/25/2015 12:36 AM Source: [facility] POWERCHART Document Id: [id number]} Karey Pena, R.N. - 01/24/2015 10:37 PM [...] Medical ; Code: V22.2 ; Contributor System: [employer] ; Last Updated: 01/21/2012 9:41 CDT ; Life Cycle Date: 01/12/2012 ; Life Cycle Status: Active ; Responsible Provider: GLEN ACOSTA; Vocabulary: ICD-9-CM Diagnoses(Active) Insect bite and/or sting Date: 01/24/2015 ; Diagnosis Type: Reason For Visit ; Confirmation: Complaint of ; Clinical Dx: Insect bite and/or sting ; Classification: Medical ; Clinical Service: Emergencymedicine ; Code: PNED ; Probability: 0 ; Diagnosis Code: [id number] Triage Chief Complaint Description : 29 year old female with complaints of a bug bite on the left side of the neck. Patient is having hot flashes and SOB at times. Bug bite patient around 0530pm tonight. Information Given By : Patient, Friend Accompanied By : Friend Mode of Arrival ED : Private vehicle Track : Medical Languages : Equatorial Guinean Treatments Prior to Arrival : None Are [...] PENA RN - 01/24/2015 22:37 CDT [facility] Document Id: [id number] CDT!53 documented in this encounter Miscellaneous Notes Miscellaneous - Pati Shepard R.N. - 01/25/2015 12:35 AM CDT Valuables/Belongings Valuables/Belongings Entered On: 01/25/2015 0:41 CDT Performed On: 01/25/2015 0:35 CDT by PATI SHEPARD RN Valuables/Belongings Valuables/Belongings Grid Valuables with Patient Clothes, Patient Valuables : Other: cellphone PATI SHEPARD RN - 01/25/2015 0:41 CDT Source: [facility] Spring[employer]me Document Id: [id number] CDT!5 Miscellaneous - Conversion, Historical Provider Ser - 01/25/2015 12:35 AM CDT Coding Summary-Paper Based CODING DATE: 02/07/2015 FINAL [facility] STATUS: * Discharged to Home or [...] ZENG Date Saved: 02/07/2015 11:40 am Source: [facility] Spring[employer]me Document Id: [id number] Miscellaneous - Pati Shepard R.N. - 01/25/2015 12:17 AM CDT Communication Note Communication Note Entered On: 01/25/2015 0:17 CDT Performed On: 01/25/2015 0:17 CDT by PATI SHEPARD RN Communication Assessment Communication Note : Feeling better. PATI SHEPARD RN - 01/25/2015 0:17 CDT [facility] Document Id: [id number] CDT!3 Miscellaneous - Pati Shepard R.N. - [...] Control : 2 Lynx Visit Level : 50734 Level 2 Treatments Prior to Arrival : None PATI SHEPARD RN - 01/25/2015 0:41 CDT Source: [employer] Document Id: [id number] CDT!18 documented in this encounter Plan of Treatment Not on filedocumented as of this encounter Visit Diagnoses Not on filedocumented in this encounter Additional Health Concerns Assessment Noted Time PHQ-9 Depression Total Score: 11 12/13/2014 9:50 AM CD T documented as of this encounter
--- OUTSIDE RECORDS SUMMARY | 2022-07-24 08:31 | XMS_ITS | Encounter Summary ---
:1985 Author Organization [facility] Address [address] [place] [address] Care Team Providers Name Role Phone Unavailable Primary Care Provider Unavailable Encounter Details Date Type Department Care Team Description 08/02/2013 Hospital Encounter HX NO MAPPING Berny Garcia M.D. [address] [place], [place] [address] (Wo rk) Social History [...] How often do you attend judaism or restorationist More than 4 time s [...]
--- OUTSIDE RECORDS SUMMARY | 2022-07-24 08:31 | XMS_ITS | Encounter Summary ---
:1985 Author Organization [facility] Address [address] [place] [address] Care Team Providers Name Role Phone Unavailable Primary Care Provider Unavailable Encounter Details Date Type Department Care Team Description 03/13/[address] [facility] Michelle Bear M.D. [address] [place] [address] (Wo rk) Social History Tobacco Use Types [...] How often do you attend mandaen or rastafarian More than 4 time s [...] Bear M.D. - 03/13/2014 1:30 PM CDT [id number] A 28-year-old female is here to establish care. She lives in [place] with the father of her son, who is 6 years old. She states they have been together for about 8 years. They are thinking about perhaps another this fall. She delivered here in [place] [address] Kinney. Her [...] I would like to refer her to [place], to the bariatric program. I believe that [...] BEAR MD On: 03/14/2014 12:48 PM Source: [facility] MHSDOLBEYNONRADSYS Document Id: [id number] documented in this encounter Miscellaneous Notes Miscellaneous - Nicolette Moise, JOSEFA, C.N.P. - 05/28/2014 2:00 PM CDT Ambulatory Patient Summary [facility] [address], [address] [place], [place] [id number] Visit Information Name: PUNEET FRIED [facility] Number: [id number] Current Date: 05/28/2014 14:00:54 Physicians [...] detail needed. Your Goals/Additional instructions: Source: [facility] POWERCHART Document Id: [id number] Miscellaneous - Nicolette Moise APRN, C.N.P. - 05/28/2014 2:00 PM CDT Ambulatory Discharge Medication List [facility] [address] [place], [place] [phone] Visit Information Name: PUNEET FRIED [facility] Number: [id number] Visit Date: 05/28/2014 14:00:53 Attending [...] Signed By: Signed On: Additional Information: Source: [facility] POWERCHART Document Id: [id number] Miscellaneous - Jory Coppola L.P.N. - 03/14/2014 [...] COPPOLA LPN - 03/14/2014 8:25 CDT Source: [employer] Document Id: [id number] CDT!13 Miscellaneous - Jory Coppola L.P.N. 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 - [...] CDT Psychosocial Domestic Abuse Concerns : None Rastafarian Preference : No qualifying data available. JORY COPPOLA LPN - 03/13/2014 13:49 CDT Advance Directive Advanced Directives : No JORY COPPOLA LPN - 03/13/2014 13:49 CDT Educ Needs Learning Style Preference Adult Grid Patient : None Family : None JORY COPPOLA LPN - 03/13/2014 13:49 CDT [facility] Document Id: [id number] CDT!40 documented in this encounter Plan of Treatment Not on filedocumented as of this encounter Visit Diagnoses Not on filedocumented in this encounter Additional Health Concerns Assessment Noted Time PHQ-9 Depression Total Score: 11 03/14/2014 8:25 AM CD T documented as of this encounter
--- OUTSIDE RECORDS SUMMARY | 2022-07-24 08:31 | XMS_ITS | Encounter Summary ---
:1985 Author Organization [facility] Address [address] [place] [address] Care Team Providers Name Role Phone Unavailable Primary Care Provider Unavailable Encounter Details Date Type Department Care Team Description 01/12/2012 Hospital Encounter HX [facility] Gildardo Marvin M.D. [address] [place] [phone] (Wo rk) Social History Tobacco Use [...] How often do you attend cheondoism or adventism More than 4 time s [...] Marvin M.D. - 01/12/2012 12:00 AM CDT [id number] IMPRESSION/REPORT/PLAN 1. Eustachian tube dysfunction. 2. Headache. [...] MARVIN MD On: 01/15/2012 10:03 AM Source: [facility] Document Id: [id number] documented in this encounter Miscellaneous Notes Miscellaneous - Vinicio Marvin M.D. - 01/12/2012 6:46 PM CDT Ambulatory Depart Summary [address] [address] Visit Information Name: PUNEET FRIED Visit Date: [...] your provider for clarification. Additional Information: Source: [facility] POWERCHART Document Id: [id number] Miscellaneous - Vinicio Marvin M.D. - 01/12/2012 6:46 PM CDT Ambulatory Patient Summary [address] [address] Visit Information Name: PUNEET FRIED Current Date: [...] No Appointments found Your Goals/Additional instructions: Source: [facility] POWERCHART Document Id: [id number] Miscellaneous - Josephine Acosta L.PBrittaneyN. - 01/12/2012 [...] - 01/12/2012 18:07 CDT Source: [facility]CH[facility] Document Id: [id number] CDT!24 Miscellaneous - Josephine Acosta L.P.N. 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
--- OUTSIDE RECORDS SUMMARY | 2022-07-24 08:31 | XMS_ITS | Encounter Summary ---
:1985 Author Organization [facility] Address [address] [place] [address] Care Team Providers Name Role Phone Unavailable Primary Care Provider Unavailable Encounter Details Date Type Department Care Team Description 05/28/2014 Hospital Encounter [facility]X [facility] Jalen Nesbitt, JOSEFA, C.N.P., D. N.P. [address] [place] [address] (Wo rk) Social History Tobacco [...] often do you attend oriental orthodox or roman catholic More than 4 time [...] APRN, C.N.P. - 05/28/2014 2:27 PM CDT [id number] CHIEF COMPLAINT/REASON FOR VISIT Cough and cold [...] Pino/robb Electronically Signed By: JALEN NESBITT RN, SHIP BOSS On: 05/30/2014 08:27 AM Source: [facility] MHSDOLBEYNONRADSYS Document Id: [id number] documented in this encounter Miscellaneous Notes Miscellaneous - Jude Cardona L.P.N. 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
--- OUTSIDE RECORDS SUMMARY | 2022-07-24 08:31 | XMS_ITS | Encounter Summary ---
:1985 Author Organization [facility] Address [address] [place] [address] Care Team Providers Name Role Phone Unavailable Primary Care Provider Unavailable Encounter Details Date Type Department Care Team Description 12/13/2014 Hospital Encounter [facility] Maureen Berman P.A.-C., M.S. [address] [place] [phone] (Wo rk) Social History Tobacco Use Types [...] P.A.-C., M.S. - 12/13/2014 9:40 AM CDT [id number] CHIEF COMPLAINT/REASON FOR VISIT Recheck headaches. HISTORY [...] MONACO PA-C On: 12/20/2014 09:46 AM Source: [facility] MHSDOLBEYNONRADSYS Document Id: [id number] documented in this encounter Nursing Notes Alison [...] open cavity, apply OIL OF CLOVES (available pfkn-wof-zcqzyke in drug stores) directly to the tooth to reduce pain. Some pharmacies carry an qwkb-rht-dbnayku toothache kit. This contains a paste, which [...] tooth ?? Difficulty swallowing or breathing ?? [address], [place] [address]. All rights reserved. This information is not intended as a substitute for professional medical care. Always follow your healthcare professional's instructions. This document has images extracted. Please consider using [employer] for all your patient education needs. Source: [facility] POWERCHART Document Id: [id number] Glen Graf L.P.N. - 12/13/2014 10:15 AM [...] GRAF LPN - 12/13/2014 10:15 CDT Source: [facility] POWERCHART Document Id: [id number] CDT!8 documented in this encounter Miscellaneous Notes [...] 3 Substitutions Allowed Route To Pharmacy - [facility] Other (See Comment) Already done. Signed by [...] 3 Substitutions Allowed Route To Pharmacy - [employer] [facility] [facility] [address] Tablet form not available. Please switch to capsule Source: [facility] POWERCHART Document Id: [id number] Miscellaneous - Alison Berman P.A.-C., M.S. - 12/13/2014 10:41 AM CDT Ambulatory Patient Summary [facility] [address], [address] Marko Fonseca [place] [phone] Visit Information Name: PUNEET FRIED [facility] Number: [id number] Current Date: 12/13/2014 10:41:40 Physicians Attending Provider: ALSION MONACO PA-C Primary Care Provider: MICHELLE BEAR [...] hours x 7 day(s) New Routed to [place] [address] [place] [id number] HYDROcodone-acetaminophen (Vicodin 5 mg-300 mg oral tablet) [...] after two hours if needed. Routed to [facility] [address] [place] [id number] venlafaxine (venlafaxine 37.5 mg oral tablet, extended release) 1 Tablet(s), Oral, once a day 1 tab daily x 1 week. Then increase to 2 tabs daily as tolerated. New Routed to [place] [address] [place] [id number] Stop Taking the Following Medications: amitriptyline (amitriptyline [...] open cavity, apply OIL OF CLOVES (available ofje-wyb-symvyas in drug stores) directly to the tooth to reduce pain. Some pharmacies carry an axns-zaw-lixgmns toothache kit. This contains a paste, which [...] tooth ?? Difficulty swallowing or breathing ?? 2477-3243 [place] [address]. All rights reserved. This information is not intended as a substitute for professional medical care. Always follow your healthcare professional's instructions. Your Goals/Additional instructions: This document has images extracted. Please consider using [employer] for all your patient education needs. Source: [facility] POWERCHART Document Id: [id number] Miscellaneous - Alison Berman P.A.-C., M.S. - 12/13/2014 10:41 AM CDT Ambulatory Discharge Medication List [facility] [address], [address] [place], [place] [phone] Visit Information Name: PUNEET FRIED [facility] Number: [id number] Visit Date: 12/13/2014 10:41:39 Attending [...] hours x 7 day(s) New Routed to [place] [address] [place] [address] [id number] HYDROcodone-acetaminophen (Vicodin 5 mg-300 mg oral tablet) 1 Tablet(s), Oral, every 6 hours as needed for Pain No more than 4,000mg acetaminophen/24hrs New Routed to [facility] ibuprofen (ibuprofen 200 mg oral tablet) See Instructions 3-4 tabs prn SUMAtriptan (SUMAtriptan 50 mg oral tablet) 1 Tablet(s), Oral, as directed as needed for Migraine headache Take 1 tablet at onset of headache. Repeat after two hours if needed. Routed to [place] [address] [place] [id number] venlafaxine (venlafaxine 37.5 mg oral tablet, extended release) 1 Tablet(s), Oral, once a day 1 tab daily x 1 week. Then increase to 2 tabs daily as tolerated. New Routed to [place] [address] [place] [id number] Stop Taking the Following Medications: amitriptyline (amitriptyline [...] PA-C Signed On:13-DEC-2014 10:41:02 Additional Information: Source: [facility] POWERCHART Document Id: [id number] Miscellaneous - Glen Graf L.P.N. - 12/13/2014 [...] GRAF LPN - 12/13/2014 9:50 CDT Source: [employer] Document Id: [id number] CDT!13 Miscellaneous - Glen Graf L.P.N. 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 Cut Out Operator Intake/History Adult Cut Out Operator Intake/History Entered On: 12/13/2014 9:50 CDT Performed [...] Information Given By : Patient Languages : Central African Is Patient Female and 13-50 no hysterectomy [...] GLEN GRAF LPN 12/13/2014 9:48 CDT Source: [employer] Document Id: [id number] CDT!50 documented in this encounter Plan of Treatment Not on filedocumented as of this encounter Visit Diagnoses Not on filedocumented in this encounter Additional Health Concerns Assessment Noted Time PHQ-9 Depression Total Score: 11 12/13/2014 9:50 AM CD T documented as of this encounter
--- OUTSIDE RECORDS SUMMARY | 2022-07-24 08:32 | XMS_ITS | Encounter Summary ---
:1985 Author Organization [facility] Address [address] [place] [address] Care Team Providers Name Role Phone Unavailable Primary Care Provider Unavailable Encounter Details Date Type Department Care Team Description 06/02/2010 Hospital Encounter HX [facility] Yamel Koch M.D. [address] [place] [address] (Wo rk) Social History Tobacco [...] How often do you attend catholic or yazidism More than 4 time s [...] Giang M.D. - 06/02/2010 10:30 AM CDT [id number] Chief Complaint Patient presents with Headache episodes [...] nausea. Imitrex for headache, suspect migraine. [facility] Document Id: [id number] documented in this encounter Miscellaneous Notes Miscellaneous - Keith Giang M.D. - 06/02/2010 10:30 AM CDT [id number] [facility] [address] [facility], [address] 06/02/2010 Carol Juarez TO WHOM IT MAY CONCERN: Carol Juarez was seen on 06/02/2010. Please excuse her from 06/02/2010 until symptoms improve due to illness. Cordially, Keith Giang M.D. [facility] Source: [facility] Document Id: [id number] documented in this encounter Plan of Treatment Not on filedocumented as of this encounter Visit Diagnoses Not on filedocumented in this encounter
--- OUTSIDE RECORDS SUMMARY | 2022-07-24 08:32 | XMS_ITS | Encounter Summary ---
:1985 Author Organization [facility] Address [address] [place] [address] Care Team Providers Name Role Phone Unavailable Primary Care Provider Unavailable Encounter Details Date Type Department Care Team Description 07/09/2011 Hospital En[facility] Yamel Koch M.D. 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 July 09, 2011 Dear Carol Juarez, APPOINTMENT REMINDER: Our record indicates that it is time for you to be seen for an office visit with Venu Yousif M.D. You may call our office at [phone] to schedule an appointment for your six (6) month follow-up visit. Please disregard this notice if you have already made an appointment. Sincerely, [facility] Source: [facility]XRT[facility] Document Id: [id number] documented in this encounter Plan of Treatment Not on filedocumented as of this encounter Visit Diagnoses Not on filedocumented in this encounter
--- OUTSIDE RECORDS SUMMARY | 2022-07-24 08:32 | XMS_ITS | Encounter Summary ---
:1985 Author Organization [facility] Address [address] [place] [address] Care Team Providers Name Role Phone Unavailable Primary Care Provider Unavailable Encounter Details Date Type Department Care Team Description 01/06/2011 Hospital Encounter [facility] Yamle Koch M.D. [address] [place] [address] (Wo rk) Social [...] Giang M.D. - 01/06/2011 10:45 AM CDT [id number] Chief Complaint Patient presents with Headache talk [...] future for headaches, if not improved. Source: [facility]XTRANSXRTFSYS Document Id: [id number] documented in this encounter Plan of Treatment Not on filedocumented as of this encounter Visit Diagnoses Not on filedocumented in this encounter
--- OUTSIDE RECORDS SUMMARY | 2022-07-24 08:32 | XMS_ITS | Encounter Summary ---
:1985 Author Organization [facility] Address [address] [place] [address] Care Team Providers Name Role Phone Unavailable Primary Care Provider Unavailable Encounter Details Date Type Department Care Team Description 02/17/2010 Hospital Encounter HX NO MAPPING Berny Garcia M.D. [address] [place], [place] [address] (Wo rk) Social History [...]
--- OUTSIDE RECORDS SUMMARY | 2022-07-24 08:32 | XMS_ITS | Encounter Summary ---
:1985 Author Organization [facility] Address [address] [place] [address] Care Team Providers Name Role Phone Unavailable [...] How often do you attend voodoo or methodist More than 4 time s [...]
--- OUTSIDE RECORDS SUMMARY | 2022-07-24 08:32 | XMS_ITS | Encounter Summary ---
:1985 Author Organization [facility] Address [address] [place] [address] Care Team Providers Name Role Phone Unavailable Primary Care Provider Unavailable Encounter Details Date Type Department Care Team Description 06/02/2010 Hospital Encounter HX [facility] Ysabel Reyes R.NBrittaney [address] [address] Social History Tobacco Use Types [...] How often do you attend yazdanism or synagogue More than 4 time s [...] Reyes R.N. - 06/02/2010 12:00 AM CDT [id number] Situation/What is the patients concern/need: N/v diarrhea, [...] Request: Apt with provider for headache. Source: [facility] Document Id: [id number] Electronically signed by Conversion, [facility] Social Studies Department Chair [id number] at 01/24/2017 12:32 PM CDT documented in this encounter Plan of Treatment Not on filedocumented as of this encounter Visit Diagnoses Not on filedocumented in this encounter
--- OUTSIDE RECORDS SUMMARY | 2022-07-24 08:32 | XMS_ITS | Encounter Summary ---
:1985 Author Organization [facility] Address [address] [place] [address] Care Team Providers Name Role Phone Unavailable [...] How often do you attend buddhism or temple More than 4 time s [...] Historical Provider Ser - 09/08/2011 12:00 AM WAITRESS [id number] LETTER Carol Juarez [address] [place] [phone] [facility] September 08, 2011 Dear Carol: Our records [...] to keep this appointment, please call the [facility] Department as soon as possible at or toll-free to reschedule or cancel. We look forward to hearing from you. Thank you, [facility] Source: [facility] RWHXTRANSXRTFSYS Document Id: [id number] documented in this encounter Plan of Treatment Not on filedocumented as of this encounter Visit Diagnoses Not on filedocumented in this encounter
--- OUTSIDE RECORDS SUMMARY | 2022-07-24 08:32 | XMS_ITS | Encounter Summary ---
:1985 Author Organization [facility] Address [address] [place] [address] Care Team Providers Name Role Phone Unavailable [...] How often do you attend methodist or moravian More than 4 time s [...]
--- OUTSIDE RECORDS SUMMARY | 2022-07-24 08:32 | XMS_ITS | Encounter Summary ---
:1985 Author Organization [facility] Address [address] [place] [address] Care Team Providers Name Role Phone Unavailable Primary Care Provider Unavailable Encounter Details Date Type Department Care Team Description 07/16/2010 Hospital Encounter HX [facility] Yamel Koch M.D. [address] [place] [address] (Wo rk) Social History Tobacco [...] How often do you attend denominational or mormon More than 4 time s [...] Giang M.D. - 07/16/2010 10:30 AM CST [id number] Chief Complaint: Chief Complaint Patient presents with [...] psychotherapy. follow up in 1 month. Source: [facility] RWMCHXTRANSXRTFSYS Document Id: [id number] Electronically signed by Roland, [facility] Paper Cone Machine Tender [id number] at 01/24/2017 1:07 PM CDT documented in this encounter Plan of Treatment Not on filedocumented as of this encounter Visit Diagnoses Not on filedocumented in this encounter
--- OUTSIDE RECORDS SUMMARY | 2022-07-24 08:32 | XMS_ITS | Encounter Summary ---
:1985 Author Organization [facility] Address [address] [place] [address] Care Team Providers Name Role Phone Unavailable [...] How often do you attend faith or yarsanism More than 4 time s [...]
--- OUTSIDE RECORDS SUMMARY | 2022-07-24 08:32 | XMS_ITS | Encounter Summary ---
:1985 Author Organization [facility] Address [address] [place] [address] Care Team Providers Name Role Phone Unavailable [...] How often do you attend mu-ism or jehovah's witness More than 4 time [...]
--- OUTSIDE RECORDS SUMMARY | 2022-07-24 08:32 | XMS_ITS | Encounter Summary ---
:1985 Author Organization [facility] Address [address] [place] [address] Care Team Providers Name Role Phone Unavailable Primary Care Provider Unavailable Encounter Details Date Type Department Care Team Description 08/28/2011 Hospital Encounter HX NO MAPPING Nelson Bernal M.D. [address] [place] [phone] (Wo rk) Social History Tobacco [...] How often do you attend spiritism or mosque More than 4 time s [...]
--- OUTSIDE RECORDS SUMMARY | 2022-07-24 08:32 | XMS_ITS | Encounter Summary ---
:1985 Author Organization [facility] Address [address] [place] [address] Care Team Providers Name Role Phone Unavailable [...] How often do you attend buddhist or scientologist More than 4 time s [...] Historical Provider Ser - 08/17/2011 12:00 AM FAMILY PRESERVATION CASEWORKER [id number] LETTER Carol Juarez [facility] [address] [facility] [address] [facility] August 17, 2011 Dear Carol: Our records indicate that you recently cancelled your appointment with Kaye Magallanes, Ph.D., L.P.. Thank you for notifying our office. Your next scheduled appointment is: August at 3:00 PM If you are unable to keep this appointment, please call the [facility] Department at your earliest convenience at or toll-free at to or cancel or reschedule. We look forward to hearing from you. Thank you, [facility] Source: [facility] Document Id: [id number] documented in this encounter Plan of Treatment Not on filedocumented as of this encounter Visit Diagnoses Not on filedocumented in this encounter
--- OUTSIDE RECORDS SUMMARY | 2022-07-24 08:32 | XMS_ITS | Encounter Summary ---
:1985 Author Organization [facility] Address [address] [place] [address] Care Team Providers Name Role Phone Unavailable [...]
--- OUTSIDE RECORDS SUMMARY | 2022-07-24 08:32 | XMS_ITS | Encounter Summary ---
:1985 Author Organization [facility] Address [address] [place] [address] Care Team Providers Name Role Phone Unavailable Primary Care Provider Unavailable Encounter Details Date Type Department Care Team Description 06/27/2010 Hospital Encounter HX [facility] Moon Figueredo, P.A.-C. [address] [place] [address] (Wo rk) Social History Tobacco Use Types [...] How often do you attend anabaptism or zoroastrianism More than 4 time s [...] Ellsworth P.A.-C. 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 Takes [...] 1 Years of Education: 13 Occupational History [email or web address] Social History Main Topics Tobacco Use: [...] non-tender, No masses, organomegaly, Bowel sounds normoactive Video Coordinator: external genitalia normal, vaginal mucosa normal, cervix [...] and is in agreement with plan. Source: [facility] RWHXTRANSXRTFSYS Document Id: [id number] Electronically signed by Conversion, [facility] Process Owner [id number] at 01/24/2017 1:07 PM CDT documented in this encounter Miscellaneous Notes Miscellaneous - Conversion, Historical Provider Ser - 06/27/2010 10:00 AM CDT [id number] Carol Pearsonford [address] [place] [address] [facility] July 01, 2010 Dear Carol Juarez, I am happy to inform you that your recent cervical cancer screening test (PAP smear) was normal. Preventative screening such as this helps insure your health for years to come. Congratulations for taking care of yourself! Please contact my office if you have any further questions. [phone]. Sincerely, CASSIE Mcintosh OBSTETRICS/GYNECOLOGY [facility] Source: [facility] Document Id: [id number] Miscellaneous - Gloria Ellsworth P.A.-C. - 06/27/2010 10:00 AM CDT [id number] [facility] COMPUGRAPH OPERATOR [address] [address] July 03, 2010 Carol Juarez [address] [place] [address] [facility] Dear Ms. Juarez., This letter is sent to inform you of recent laboratory test results and to provide you with personalrecords of health information. Your Pap and chlamydia tests were negative. Thank you for allowing me to participate in your care. If you have any further questions or problems, please contact me at [phone]. Sincerely, Gloria Ellsworth PA-C Source: [facility] Document Id: [id number] Electronically signed by Conversion, [facility] Process Owner [id number] at 01/24/2017 1:07 PM CDT documented in this encounter Plan of Treatment Not on filedocumented as of this encounter Visit Diagnoses Not on filedocumented in this encounter
--- OUTSIDE RECORDS SUMMARY | 2022-07-24 08:32 | XMS_ITS | Encounter Summary ---
:1985 Author Organization [facility] Address [address] [place] [address] Care Team Providers Name Role Phone Unavailable [...] How often do you attend anglican or faith More than 4 time s [...] Provider Ser - 11/13/2010 12:00 AM CDT [id number] MARIA T Juarez [address] [address] [facility] [address] [facility] November 13, 2010 Dear Carol: Our records indicate that you recently cancelled your appointment with Kaye Magallanes, Ph.D., L.P.. Thank you for notifying our office. Your next scheduled appointment is: Sunday, November 28, 2010 at 11:00 AM If you are unable to keep this appointment, please call the [facility] Department at your earliest convenience at or toll-free at to or cancel or reschedule. We look forward to hearing from you. Thank you, [facility] Source: [facility] Document Id: [id number] documented in this encounter Plan of Treatment Not on filedocumented as of this encounter Visit Diagnoses Not on filedocumented in this encounter
--- OUTSIDE RECORDS SUMMARY | 2022-07-24 08:32 | XMS_ITS | Encounter Summary ---
:1985 Author Organization [facility] Address [address] [place] [address] Care Team Providers Name Role Phone Unavailable [...] How often do you attend anabaptism or muslim More than 4 time s [...]
--- OUTSIDE RECORDS SUMMARY | 2022-07-24 08:32 | XMS_ITS | Encounter Summary ---
:1985 Author Organization [facility] Address [address] [place] [address] Care Team Providers Name Role Phone Unavailable [...] How often do you attend catholic or uatsdin More than 4 time s [...]
--- OUTSIDE RECORDS SUMMARY | 2022-07-24 08:32 | XMS_ITS | Encounter Summary ---
:1985 Author Organization [facility] Address [address] [place] [address] Care Team Providers Name Role Phone Unavailable Primary Care Provider Unavailable Encounter Details Date Type Department Care Team Description 08/28/2011 Hospital Encounter [facility]X [facility] Jairon Wolf M.D. [address] [place] [phone] (Wo rk) Social History Tobacco [...] How often do you attend congregational or confucianism More than 4 time s [...] Roberts M.D. - 08/28/2011 2:10 PM CST [id number] CC: follow up ER visit HPI: Carol [...] negative. GI: negative. BREAST: negative. : negative. 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 CV: negative. PULMONARY: No shortness of breath, dyspnea on exertion, cough, or hemoptysis. MUSCULOSKELETAL: negative. PSYCH: negative. PHYSICAL EXAM: This is a well-developed, well-nourished female in no apparent distress. Vitals: BP 126/78 Ht 1.588 m (5' 2.5) Wt 122.244 kg (269 lb 8 oz) BMI 48.51 kg/m2 Source: [facility] Document Id: [id number] documented in this encounter Miscellaneous Notes Miscellaneous - Mary Teran L.PBrittaneyN. - 08/28/2011 2:10 PM CST [id number] Carol Juarez [address] [facility] [address] [facility] August 31, 2011 Dear Ms. [...] or problems, please contact our office at [phone]. Sincerely, Dr Obie Roberts Dept. LOG CUTTER [facility] Source: [facility] Document Id: [id number] documented in this encounter Plan of Treatment Not on filedocumented as of this encounter Procedures Procedure Name Priority Date/Time Associated Comments Diagnosis HX SN - SPEC - Routine 08/30/2011 3:07 PM Results for this DESCRIPTION INFO ANALYST procedure are i n the results section. HX SN - SPEC - Routine 08/30/2011 3:07 PM Results for this DESCRIPTION INFO ANALYST procedure are i n the results section. HX CHLAMYDIA Routine 08/30/2011 3:07 PM Results f or this TRACHOMATIS AMPLIFIED INFO ANALYST proced ure are in DNA-ID the results section. CHLAMYDIA TRACHOMATIS Routine 08/30/2011 3:07 PM Results for this AMPLIFIED RNA INFO ANALYST procedure are in the results section. documented in this encounter Results Chlamydia trachomatis Amplified RNA (08/30/2011 3:07 PM INFO ANALYST) Specimen (Source) Anatomical Collection Method Collection Time Re ceived Time Location / / Volume Laterality 08/30/2011 3:07 PM INFO ANALYST Narrative [facility] - 10/23/19 14 7:05 PM INFO ANALYST Negative for N. gonorrhoeae rRNA by embossing press operator apprentice mediated amplification. A negative result by embossing press operator apprentice media pipe amplification does not preclude the presence of N. gonorrhoeae infection bec ause results are dependent on proper and adequate collection, absence of inhi bitors, and sufficient rRNA to be detected. Historical Provider LAB MICROBIOLOGY - GENERAL O RDERABLES Performing Organization Address City/[facility]/ZIP Code Phon e Number [facility] HX SN - SPEC - DESCRIPTION (08/30/2011 3:07 PM INFO ANALYST) [facility] Rice[facility] Method Time Signature HXSPECIMAN Endocervical [facility] Specimen (Source) Anatomical Collection Method Collection Time Re ceived Time Location / / Volume Laterality 08/30/2011 3:07 PM INFO ANALYST Historical Provider LAB HISTORICAL ORDERS Performing Organization Address [facility] Phon e Number [facility] HX CHLAMYDIA TRACHOMATIS AMPLIFIED DNA-ID (08/30/2011 3:07 PM INFO ANALYST) Specimen (Source) Anatomical Collection Method Collection Time Re ceived Time Location / / Volume Laterality 08/30/2011 3:07 PM INFO ANALYST Narrative [facility] - 10/23/19 14 7:05 PM INFO ANALYST Negative for C. trachomatis rRNA by embossing press operator apprentice mediated amplification. A negative result by embossing press operator apprentice media pipe amplification does not preclude the presence of C. trachomatis infection bec ause results are dependent on proper and adequate collection, absence of inhi bitors, and sufficient rRNA to be detected. Historical Provider LAB HISTORICAL ORDERS Performing Organization Address City/[facility]/ZIP Code Phon e Number [facility] HX SN - SPEC - DESCRIPTION (08/30/2011 3:07 PM INFO ANALYST) [facility] Method Time Signature HXSPECIMAN Endocervical [facility] Specimen (Source) Anatomical Collection Method Collection Time Re ceived Time Location / / Volume Laterality 08/30/2011 3:07 PM INFO ANALYST Historical Provider LAB HISTORICAL ORDERS Performing Organization Address City/[facility]/ZIP Code Phon e Number [facility] documented in this encounter Visit Diagnoses Not on filedocumented in this encounter
--- OUTSIDE RECORDS SUMMARY | 2022-07-24 08:32 | XMS_ITS | Encounter Summary ---
:1985 Author Organization [facility] Address [address] [place] [address] Care Team Providers Name Role Phone Unavailable [...] Historical Provider Ser - 07/16/2010 12:00 AM APPLIED STATISTICIAN [id number] LETTER Carol Juarez [address] [address] [facility] [address] [facility] July 16, 2010 Dear Carol: Thank you for requesting an appointment for services at the [facility] Behavioral Health Department. Initial 45 minute appointments have been scheduled in our Psychology Department with: Kaye Magallanes, Ph.D., L.P. Sunday, August 01, 2010 at 11:00 AM Wednesday, August 29, 2010 at 10:00 AM Wednesday, September 12, 2010 at 11:00 AM located on the 3rd floor: [facility] at [address] [place] [address]. If the above scheduled appointment is not [...] be a pleasant and worthwhile one. Sincerely, [facility] Contact Information July 16, 2010 Intake done by: Humaira EMR#: [id number] NAME: Carol Juarez SSN: [id number] : 1985 Age: [age] year old Sex: female Spouse/ S.O.: - Parent/Guardian: - ADDRESS: [address] [place] [address] [place] Phone Numbers: [phone] (home) Phone Contact: Home: Yes Messages: Yes Written Contact: Home: Yes Work: No Payor: [facility] Plan: [facility] Product Type: Indemnity Court Ordered/Litigation No Referral Information Caller: self Referred by: elie Location: Referred to: monty Prior Contact with [facility]? No Date: - Doctor seen: NA [...] Packet Sent on Wait List No Source: [facility] RWHXTRANSXRTFSYS Document Id: [id number] documented in this encounter Plan of Treatment Not on filedocumented as of this encounter Visit Diagnoses Not on filedocumented in this encounter
--- OUTSIDE RECORDS SUMMARY | 2022-07-24 08:32 | XMS_ITS | Encounter Summary ---
:1985 Author Organization [facility] Address [address] [place] [address] Care Team Providers Name Role Phone Unavailable Primary Care Provider Unavailable Encounter Details Date Type Department Care Team Description 08/28/2010 Hospital Encounter [facility] Yamel Koch M.D. [address] [place] [address] (Wo rk) Social History Tobacco [...] How often do you attend religious or temple More than 4 time s [...] Giang M.D. - 08/28/2010 8:30 AM CST [id number] Chief Complaint: Chief Complaint Patient presents with [...] Wellbutrin. follow up in 1 month. Source: [facility] RWMCHXTRANSXRTFSYS Document Id: [id number] Electronically signed by Conversion, [facility] School Custodian [id number] at 01/24/2017 12:51 AM CDT documented in this encounter Plan of Treatment Not on filedocumented as of this encounter Visit Diagnoses Not on filedocumented in this encounter
--- OUTSIDE RECORDS SUMMARY | 2022-07-24 08:32 | XMS_ITS | Encounter Summary ---
:1985 Author Organization [facility] Address [address] [place] [address] Care Team Providers Name Role Phone Unavailable Primary Care Provider Unavailable Encounter Details Date Type Department Care Team Description 09/29/2010 Hospital Encounter [facility] Yamel Koch M.D. [address] [place] [address] (Wo rk) Social [...] How often do you attend advent or religion More than 4 time s [...] Giang M.D. - 09/29/2010 9:00 AM CST [id number] Chief Complaint: Chief Complaint Patient presents with [...] Rating was 13, which is improved. Source: [facility] RWMCHXTRANSXRTFSYS Document Id: [id number] Electronically signed by Roland, [facility] Internal Medicine Physician [id number] at 01/23/2017 9:40 PM CDT documented in this encounter Plan of Treatment Not on filedocumented as of this encounter Visit Diagnoses Not on filedocumented in this encounter
--- OUTSIDE RECORDS SUMMARY | 2022-07-24 08:32 | XMS_ITS | Encounter Summary ---
:1985 Author Organization [facility] Address [address] [place] [address] Care Team Providers Name Role Phone Unavailable Primary Care Provider Unavailable Encounter Details Date Type Department Care Team Description 01/06/2011 Hospital Encounter [facility] Provider, Historic al Social History [...] How often do you attend jewish or adventism More than 4 time s [...]
--- OUTSIDE RECORDS SUMMARY | 2022-07-24 08:32 | XMS_ITS | Encounter Summary ---
:1985 Author Organization [facility] Address [address] [place] [address] Care Team Providers Name Role Phone Unavailable [...] How often do you attend advent or hoahaoism More than 4 time s [...] Gregory Grewal - 10/13/2010 5:00 PM CST [id number] Adult female smoker had a fever yesterday [...] HENOK Garcia/jayson Source: [facility] RWHXTRANSXSYS Document Id: [id number] documented in this encounter Plan of Treatment Not on filedocumented as of this encounter Visit Diagnoses Not on filedocumented in this encounter
--- OUTSIDE RECORDS SUMMARY | 2022-07-24 08:32 | XMS_ITS | Encounter Summary ---
:1985 Author Organization [facility] Address [address] [place] [address] Care Team Providers Name Role Phone Unavailable Primary Care Provider Unavailable Encounter Details Date Type Department Care Team Description 07/15/2010 Hospital Encounter [facility] Provider, [facility] Social History Tobacco Use Types Packs/Day Years [...] How often do you attend mosque or restorationism More than 4 time s [...] Provider Ser - 07/15/2010 12:00 AM CST [id number] TELEPHONE TRIAGE ENCOUNTER FORM Date: 07/15/2010 PCP: Venu Yousif MD, MD Patient Name: Carol Juarez Gender: female : 1985 Age: [age] year old Time: 4:45 PM Phone Numbers: [phone] (home) Pharmacy: [facility] ASSESSMENT Presenting Problem: Depression Subjective/objective: Patient [...] way prior to scheduled appointment time. Source: [facility] RWHXTRANSXRTFSYS Document Id: [id number] documented in this encounter Plan of Treatment Not on filedocumented as of this encounter Visit Diagnoses Not on filedocumented in this encounter
--- OUTSIDE RECORDS SUMMARY | 2022-07-24 08:32 | XMS_ITS | Encounter Summary ---
:1985 Author Organization [facility] Address [address] [place] [address] Care Team Providers Name Role Phone Unavailable [...] How often do you attend scientologist or gnosticism More than 4 time s [...]
--- OUTSIDE RECORDS SUMMARY | 2022-07-24 08:32 | XMS_ITS | Encounter Summary ---
:1985 Author Organization [facility] Address [address] [place] [address] Care Team Providers Name Role Phone Unavailable Primary Care Provider Unavailable Encounter Details Date Type Department Care Team Description 08/28/2011 Hospital Encounter HX NO MAPPING Nelson Bernal M.D. [address] [place] [phone] (Wo rk) Social History Tobacco [...] How often do you attend taoism or judaism More than 4 time s [...]
--- OUTSIDE RECORDS SUMMARY | 2022-07-24 08:32 | XMS_ITS | Encounter Summary ---
:1985 Author Organization [facility] Address [address] [place] [address] Care Team Providers Name Role Phone Unavailable [...] How often do you attend advent or worship More than 4 time s [...]
--- OUTSIDE RECORDS SUMMARY | 2022-07-24 08:32 | XMS_ITS | Encounter Summary ---
:1985 Author Organization [facility] Address [address] [place] [address] Care Team Providers Name Role Phone Unavailable Primary Care Provider Unavailable Encounter Details Date Type Department Care Team Description 08/28/2011 Hospital Encounter [facility] Celia Schwab RRoverto Social History [...] How often do you attend sikh or taoism More than 4 time s [...] Dejesus R.N. - 08/28/2011 12:00 AM CST [id number] Appointment requested for: check my IUD Subjective [...] Obstetrics &Gynecology page 261, 264 Appointment scheduled: ice plant operator today Source: [facility] RWHXTRANSXRTFSYS Document Id: [id number] Electronically signed by Roland, [facility] Blast Furnace Operator [id number] at 01/23/2017 2:30 PM CDT documented in this encounter Plan of Treatment Not on filedocumented as of this encounter Visit Diagnoses Not on filedocumented in this encounter
--- OUTSIDE RECORDS SUMMARY | 2022-07-24 08:32 | XMS_ITS | Encounter Summary ---
:1985 Author Organization [facility] Address [address] [place] [address] Care Team Providers Name Role Phone Unavailable Primary Care Provider Unavailable Encounter Details Date Type Department Care Team Description 06/11/2010 Hospital Encounter [facility] Yamel Koch M.D. [address] [place] [address] (Wo rk) Social History Tobacco [...] How often do you attend mu-ism or hinduism More than 4 time s [...] Giang M.D. - 06/11/2010 2:45 PM CDT [id number] Chief Complaint: Chief Complaint Patient presents with [...] squeezing or trying to pop this. Source: [facility] RWMCHXTRANSXRTFSYS Document Id: [id number] Electronically signed by Conversion, [facility] Manager [employer] [id number] at 01/24/2017 12:32 PM CDT documented in this encounter Plan of Treatment Not on filedocumented as of this encounter Visit Diagnoses Not on filedocumented in this encounter
--- OUTSIDE RECORDS SUMMARY | 2022-07-24 08:32 | XMS_ITS | Encounter Summary ---
:1985 Author Organization [facility] Address [address] [place] [address] Care Team Providers Name Role Phone Unavailable Primary Care Provider Unavailable Encounter Details Date Type Department Care Team Description 03/24/2010 Hospital Encounter H[facility] Yamel Koch M.D. [address] [place] [address] (Wo rk) Social History Tobacco [...] Giang M.D. - 03/24/2010 11:00 AM CDT [id number] Chief Complaint: Chief Complaint Patient presents with [...] or return if worsening or spreading. Source: [facility] RWMCHXTRANSXRTFSYS Document Id: [id number] Electronically signed by Conversion, [facility] Animal Biologist [id number] at 01/24/2017 2:27 PM CDT documented in this encounter Miscellaneous Notes Miscellaneous - Venu Giang M.D. - 03/24/2010 11:00 AM CDT [id number] [facility] [address] [facility], [address] 03/24/2010 Carol Juarez TO WHOM IT MAY CONCERN: Carol Juarez was seen on 03/24/2010. Please excuse her 03/24/2010 due to a medical condition. She may return 03/25/2010 without restrictions. Cordially, Venu Giang M.D. [facility] Source: [facility] RWHXTRANSXRTFSYS Document Id: [id number] Electronically signed by Conversion, [facility] Animal Biologist [id number] at 01/24/2017 2:27 PM CDT documented in this encounter Plan of Treatment Not on filedocumented as of this encounter Visit Diagnoses Not on filedocumented in this encounter
--- OUTSIDE RECORDS SUMMARY | 2022-07-24 08:32 | XMS_ITS | Encounter Summary ---
:1985 Author Organization [facility] Address [address] [place] [address] Care Team Providers Name Role Phone Unavailable [...] How often do you attend anabaptism or mormon More than 4 time s [...] Provider Ser - 02/17/2011 12:00 AM CDT [id number] LETTER Carol Juarez [address] [id number] [facility] [address] [facility] February 17, 2011 Dear Carol: [...] please call at your earliest convenience at [phone] or, toll-free at . Thank you, [facility] Source: [facility] Document Id: [id number] documented in this encounter Plan of Treatment Not on filedocumented as of this encounter Visit Diagnoses Not on filedocumented in this encounter
--- OUTSIDE RECORDS SUMMARY | 2022-07-24 08:32 | XMS_ITS | Encounter Summary ---
:1985 Author Organization [facility] Address [address] [place] [address] Care Team Providers Name Role Phone Unavailable [...] How often do you attend confucianist or mosque More than 4 time s [...]
--- OUTSIDE RECORDS SUMMARY | 2022-07-24 08:32 | XMS_ITS | Encounter Summary ---
:[address] [facility] Address [address] [place] [address] Care Team Providers Name Role Phone Unavailable [...] How often do you attend zoroastrian or episcopal More than 4 time s [...]
--- OUTSIDE RECORDS SUMMARY | 2022-07-24 08:32 | XMS_ITS | Encounter Summary ---
:1985 Author Organization [facility] Address [address] [place] [address] Care Team Providers Name Role Phone Unavailable [...]
--- OUTSIDE RECORDS SUMMARY | 2022-07-24 08:32 | XMS_ITS | Encounter Summary ---
:1985 Author Organization [facility] Address [address] [place] [address] Care Team Providers Name Role Phone Unavailable [...] How often do you attend taoist or religion More than 4 time s [...] Marisol Couch - 08/11/2011 12:00 AM CST [id number] MARIA T Dowell [address] [address] [facility] August 11, 2011 Dear Carol: Our records indicate that you recently cancelled your appointment with Kaye Magallanes, Ph.D., L.P.. Thank you for notifying our office. Your next scheduled appointment is: Thursday, August 18, 2011 at 10:00 AM If you are unable to keep this appointment, please call the [facility] Department at your earliest convenience at or toll-free at to or cancel or reschedule. We look forward to hearing from you. Thank you, [facility] Source: [facility] Document Id: [id number] Electronically signed by Conversion, [facility] Denture Contour Wire Specialist [id number] at 01/24/2017 1:37 AM CDT documented in this encounter Plan of Treatment Not on filedocumented as of this encounter Visit Diagnoses Not on filedocumented in this encounter
--- OUTSIDE RECORDS SUMMARY | 2022-07-24 08:32 | XMS_ITS | Encounter Summary ---
:1985 Author Organization [facility] Address [address] [place] [address] Care Team Providers Name Role Phone Unavailable [...] How often do you attend taoist or sabianism More than 4 time s [...]
--- OUTSIDE RECORDS SUMMARY | 2022-07-24 08:33 | XMS_ITS | Encounter Summary ---
:1985 Author Organization [facility] Address [address] [place] [address] Care Team Providers Name Role Phone Unavailable Primary Care Provider Unavailable Encounter Details Date Type Department Care Team Description 12/21/2007 Hospital Encounter [facility]X [facility] Casi Vo M.D. [address] [place], [place] [phone] (Wo rk) Social History [...] How often do you attend amish or anabaptist More than 4 time s [...] Grove M.D. - 12/21/2007 10:15 AM CDT [id number] Repeat BP 132/80. Has 2+ edema. No headache, visual changes Signs and symptoms of PIH discussed. Will follow up Mon with 24 hr urine and labs and appt. KG Source: [facility] RWMCHXTRANSXRTFSYS Document Id: [id number] documented in this encounter Plan of Treatment Not on filedocumented as of this encounter Visit Diagnoses Not on filedocumented in this encounter
--- OUTSIDE RECORDS SUMMARY | 2022-07-24 08:33 | XMS_ITS | Encounter Summary ---
:1985 Author Organization [facility] Address [address] [place] [address] Care Team Providers Name Role Phone Unavailable [...] How often do you attend religious or christianity More than 4 time s [...]
--- OUTSIDE RECORDS SUMMARY | 2022-07-24 08:33 | XMS_ITS | Encounter Summary ---
:1985 Author Organization [facility] Address [address] [place] [address] Care Team Providers Name Role Phone Unavailable [...] How often do you attend scientologist or worship More than 4 time s [...] Provider Ser - 12/27/2007 7:10 PM CDT [id number] Source: [facility] Document Id: [id number] documented in this encounter Plan of Treatment Not on filedocumented as of this encounter Visit Diagnoses Not on filedocumented in this encounter
--- OUTSIDE RECORDS SUMMARY | 2022-07-24 08:33 | XMS_ITS | Encounter Summary ---
:1985 Author Organization [facility] Address [address] [place] [address] Care Team Providers Name Role Phone Unavailable Primary Care Provider Unavailable Encounter Details Date Type Department Care Team Description 02/04/2010 Hospital Encounter HX NO MAPPING Venu Yousif M.D. [address] [place], [place] [phone] (Wo rk) Social History [...] How often do you attend sikhism or mormon More than 4 time s [...]
--- OUTSIDE RECORDS SUMMARY | 2022-07-24 08:33 | XMS_ITS | Encounter Summary ---
:1985 Author Organization [facility] Address [address] [place] [address] Care Team Providers Name Role Phone Unavailable [...] Provider Ser - 2007 10:20 AM CDT [id number] [facility] Document Id: [id number] Miscellaneous - Conversion, Historical Provider Ser - 2007 10:20 AM CDT [id number] [facility] [address] [facility], [address] Name: Carol Juarez Birthdate: 1985 SSN: [id number] [facility] Allergy: No known allergies Discharge [...] as above Diet: regular Appointment(s): To call [phone] by 5 pm to verify that you [...] documentation info: (time, how & by). Source: [facility] RWHXTRANSXRTFSYS Document Id: [id number] Miscellaneous - Conversion, Historical Provider Ser - 2007 10:20 AM CDT [id number] [address] [place] [address] Name: Carol Juarez Birthdate: 1985 SSN: [id number] [facility] Allergy: No known allergies Discharge Date: 2007 Obstetrical Discharge Instructions Information given to patient: [facility] Immunization - {YES-NO Default Yes:4444::Yes} Notice of Phone Call / Classes - {YES-NO Default Yes:4444::Yes} Parenting Newsletter - {YES-NO Default Yes:4444::Yes} Public Health Referral - {YES-NO Default Yes:4444::Yes} Social Work Services Referral - {YES-NO Default Yes:4444::Yes} -Information for Medical Records - {YES-NO Default Yes:4444::Yes} Discharged to: Home. Activities: {[facility]IV[facility]:857866::-Up as tolerated} Medications: {:PLEASE INCLUDE THE TIME [...] documented {:time}. Nursing Instructions: { OB HOSP [place] NURSE INSTRUCT:063898::Nothing per Vagina for 6 weeks, As instructed by your provider.} Diet: { [facility] DIET:804957} Appointment(s): Mother's Appointment: To see . Baby's [...] documentation info: (time, how & by). Source: [facility] RWMCHXTRANSXRTFSYS Document Id: [id number] documented in this encounter Plan of Treatment Not on filedocumented as of this encounter Visit Diagnoses Not on filedocumented in this encounter
--- OUTSIDE RECORDS SUMMARY | 2022-07-24 08:33 | XMS_ITS | Encounter Summary ---
:1985 Author Organization [facility] Address [address] [place] [address] Care Team Providers Name Role Phone Unavailable Primary Care Provider Unavailable Encounter Details Date Type Department Care Team Description 05/19/[address] [facility] INPT/OBSRV Chon Babin M.D. [address] [place], [place] [id number] (Wo rk) Social History Tobacco Use Types [...] How often do you attend christian or spiritism More than 4 time s [...]
--- OUTSIDE RECORDS SUMMARY | 2022-07-24 08:33 | XMS_ITS | Encounter Summary ---
:1985 Author Organization [facility] Address [address] [place] [address] Care Team Providers Name Role Phone Unavailable [...] How often do you attend mandaeism or jehovah's witness More than 4 time [...] Provider Ser - 12/30/2007 7:10 AM CDT [id number] [facility]: [facility] Document Id: [id number] Miscellaneous - Conversion, Historical Provider Ser - 12/30/2007 7:10 AM CDT [id number] December 30, 2007 Carol Dowell [place] [id number] OB Admit History & Physical 2007 Carol [...] N/A Years of Education: 13 Occupational History [employer] Social History Main Topics Tobacco Use: [...] Negative GI: Negative BREAST: Negative : Negative JAVA WEB ARCHITECT: As above CV: Negative PULMONARY: Negative MUSCULOSKELETAL: Negative PSYCH: Negative PE: BP 108/80 Gen: A&O, NAD CV: RRR Chest: CTA bilat Abd: Gravid, NT, vtx by Christiane, EFW 3900g by Christiane Ext: No CT, 1+ edema, DTR tr bilat, no clonus SVE: Deferred FHT: 140, ave LTV, +accels Auxier: Irritability Amnisure: Negative Ltd ultrasound performed. Cephalic presentation confirmed. A/P: 21 y/o @ 40w2 (10) with: 1. IOL: Will proceed with 2nd attempt at induction with pitocin. 2. Gestational HTN: No e/o pree. Bp OK today. Will follow 3. GBS negative 4. status reassuring. Rylee Grijalva MD Dept of LIME HIDE INSPECTOR Source: [facility] Document Id: [id number] Miscellaneous - Conversion, Historical Provider Ser - 12/30/2007 7:10 AM CDT [id number] [facility] [address] [facility], [address] Name: Carol Juarez Birthdate: 1985 [facility] [...] minutes. Dr. Rylee Grijalva MD 12/30/2007 Source: [facility] RWHXTRANSXRTFSYS Document Id: [id number] Miscellaneous - Conversion, Historical Provider Ser - 12/30/2007 7:10 AM CDT [id number] [facility] [address] [facility], [address] Name: Carol Juarez Birthdate: 1985 SSN: [id number] [facility] Allergy: No known allergies [...] water breaks Diet: regular Appointment(s): Please call [phone] on Wednesday for an appt. Make appt for Wednesday01/02/08 forOB check and NST. I have all of my belongings . I understand my discharge instructions. My medications were reviewed with me. Patient's Signature: Nurse Discharging this patient signature: RN Signature & Date: Spencer Schuster RN Date: 12/30/2007 Please see paper chart for additional discharge documentation info: (time, how & by). Source: [facility] RWHXTRANSXRTFSYS Document Id: [id number] documented in this encounter Plan of Treatment Not on filedocumented as of this encounter Visit Diagnoses Not on filedocumented in this encounter
--- OUTSIDE RECORDS SUMMARY | 2022-07-24 08:33 | XMS_ITS | Encounter Summary ---
:1985 Author Organization [facility] Address [address] [place] [address] Care Team Providers Name Role Phone Unavailable Primary Care Provider Unavailable Encounter Details Date Type Department Care Team Description 08/06/2009 Hospital Encounter [facility]X [facility] INPT/OBSRV Shari Diaz M.D. [address] [place], [place] [address] (Wo rk) Social History [...] How often do you attend temple or jain More than 4 time s [...]
--- OUTSIDE RECORDS SUMMARY | 2022-07-24 08:33 | XMS_ITS | Encounter Summary ---
:1985 Author Organization [facility] Address [address] [place] [address] Care Team Providers Name Role Phone Unavailable Primary Care Provider Unavailable Encounter Details Date Type Department Care Team Description 2007 Hospital Encounter HX [facility] OBGYN Provider, Histor ical Social History [...] Provider Ser - 2007 9:15 AM CDT [id number] Repeat bp 144/86. No sx pree. Amnisure, nitrazine negative. Will check PIH labs and obs on LD. 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 Rylee Grijalva MD MD Dept of COOK PIE Source: [facility] Document Id: [id number] documented in this encounter Plan of Treatment Not on filedocumented as of this encounter Visit Diagnoses Not on filedocumented in this encounter
--- OUTSIDE RECORDS SUMMARY | 2022-07-24 08:33 | XMS_ITS | Encounter Summary ---
:1985 Author Organization [facility] Address [address] [place] [address] Care Team Providers Name Role Phone Unavailable Primary Care Provider Unavailable Encounter Details Date Type Department Care Team Description 02/04/2010 Hospital Encounter HX NO MAPPING Venu Yousif M.D. [address] [place], [place] [address] (Wo rk) Social History [...] How often do you attend yazidi or episcopal More than 4 time s [...]
--- OUTSIDE RECORDS SUMMARY | 2022-07-24 08:33 | XMS_ITS | Encounter Summary ---
:1985 Author Organization [facility] Address [address] [place] [address] Care Team Providers Name Role Phone Unavailable Primary Care Provider Unavailable Encounter Details Date Type Department Care Team Description 02/06/[address] [facility] Marisol Galaviz, APR N, C.N.P. [address] [place], [place] [address] (Wo rk) Social History [...] How often do you attend anabaptist or hoahaoism More than 4 time s [...] C.NLebron., R.N. - 02/06/2008 1:00 PM CDT [id number] Carol is here for a 6-week checkup. [...] and symptoms of infection were discussed. Source: [facility] RWHXTRANSXRTFSYS Document Id: [id number] Electronically signed by Conversion, [facility] Cellular Equipment Installer [id number] at 01/25/2017 2:51 AM CDT documented in this encounter Miscellaneous Notes Miscellaneous - Marisol Irving C.N.P., R.N. - 02/06/2008 1:00 PM CDT [id number] Date: 02/06/2008 Name: Carol Juarez Birthdate: 1985 The patient was seen at: [facility] today Restrictions if any: Able to work unrestricted as of today. Marisol Irving RN, VP GLOBAL OBSTETRICS/GYNECOLOGY [facility] Source: [facility] RWHXTRANSXRTFSYS Document Id: [id number] Electronically signed by Roland, [facility] Cellular Equipment Installer [id number] at 01/25/2017 2:51 AM CDT documented in this encounter Plan of Treatment Not on filedocumented as of this encounter Visit Diagnoses Not on filedocumented in this encounter
--- OUTSIDE RECORDS SUMMARY | 2022-07-24 08:33 | XMS_ITS | Encounter Summary ---
:1985 Author Organization [facility] Address [address] [place] [address] Care Team Providers Name Role Phone Unavailable [...] How often do you attend restorationist or orthodoxy More than 4 time s [...]
--- OUTSIDE RECORDS SUMMARY | 2022-07-24 08:33 | XMS_ITS | Encounter Summary ---
:1985 Author Organization [facility] Address [address] [place] [address] Care Team Providers Name Role Phone Unavailable Primary Care Provider Unavailable Encounter Details Date Type Department Care Team Description 01/09/2009 Hospital Encounter [facility] Yamel Koch M.D. [address] [place] [address] (Wo rk) Social History Tobacco [...] How often do you attend temple or hinduism More than 4 time s [...] Yousif M.D. - 01/09/2009 3:00 PM CDT [id number] Comment: Graphics Edit Technician Chief Complaint Patient presents with Knee Pain [...] orKeflex is resistant to this. PCN/BTM/dac Source: [facility] RWMCHXTRANSXRTFSYS Document Id: [id number] Electronically signed by Conversion, [facility] Graphics Edit Technician [id number] at 01/24/2017 3:54 PM CDT documented in this encounter Plan of Treatment Not on filedocumented as of this encounter Visit Diagnoses Not on filedocumented in this encounter
--- OUTSIDE RECORDS SUMMARY | 2022-07-24 08:33 | XMS_ITS | Encounter Summary ---
:1985 Author Organization [facility] Address [address] [place] [address] Care Team Providers Name Role Phone Unavailable Primary Care Provider Unavailable Encounter Details Date Type Department Care Team Description 03/27/2009 Hospital Encounter [facility] Provider, [facility] Social History Tobacco Use Types Packs/Day [...] How often do you attend taoist or bahai More than 4 time s [...]
--- OUTSIDE RECORDS SUMMARY | 2022-07-24 08:33 | XMS_ITS | Encounter Summary ---
:1985 Author Organization [facility] Address [address] [place] [address] Care Team Providers Name Role Phone Unavailable [...] How often do you attend congregation or congregation More than 4 time s [...]
--- OUTSIDE RECORDS SUMMARY | 2022-07-24 08:33 | XMS_ITS | Encounter Summary ---
:1985 Author Organization [facility] Address [address] [place] [address] Care Team Providers Name Role Phone Unavailable Primary Care Provider Unavailable Encounter Details Date Type Department Care Team Description 12/02/[address] [facility] Casi Vo M.D. [address] [place], [place] [address] (Wo rk) Social History [...] How often do you attend mosque or mandaeism More than 4 time s [...] Grove M.D. - 12/02/2007 9:30 AM CDT [id number] Having some cramping. She's 36 weeks now so given 36 week instructions GBS/Hg done. KARY reviewed. BP good today. KG Source: [facility] Document Id: [id number] Electronically signed by [facility], [facility] Pin Attacher [id number] at 01/25/2017 2:07 AM CDT documented in this encounter Miscellaneous Notes Ann Barfield M.D. - 12/02/2007 9:30 AM CDT [id number] Carol Magalys [address] [address] December 05, 2007 Dear Carol: I am [...] or problems, please contact our office at [phone]. Sincerely, Ann Grove MD, CURTAIN FRAMER Department [facility] Source: [facility] Document Id: [id number] Ann Barfield M.D. - 12/02/2007 9:30 AM CDT [id number] Carol Dowell [address] [address] December 05, 2007 Dear Carol: I am [...] or problems, please contact our office at [phone]. Sincerely, Ann Grove MD, CURTAIN FRAMER Department [facility] Source: [facility] RWHXTRANSXRTFSYS Document Id: [id number] documented in this encounter Plan of Treatment Not on filedocumented as of this encounter Visit Diagnoses Not on filedocumented in this encounter
--- OUTSIDE RECORDS SUMMARY | 2022-07-24 08:33 | XMS_ITS | Encounter Summary ---
:1985 Author Organization [facility] Address [address] [place] [address] Care Team Providers Name Role Phone Unavailable Primary Care Provider Unavailable Encounter Details Date Type Department Care Team Description 02/22/2009 Hospital Encounter HX NO MAPPING Rizwan Dean M.D. [address] [place], [place] [phone] (Wo rk) Social History [...] How often do you attend cheondoism or amish More than 4 time s [...]
--- OUTSIDE RECORDS SUMMARY | 2022-07-24 08:33 | XMS_ITS | Encounter Summary ---
:1985 Author Organization [facility] Address [address] [place] [address] Care Team Providers Name Role Phone Unavailable Primary Care Provider Unavailable Encounter Details Date Type Department Care Team Description 11/25/2007 Hospital Encounter HX [facility] OBGYN Provider, Histor ical Social [...] How often do you attend restoration or sabianist More than 4 time s [...] Provider Ser - 11/25/2007 2:00 PM CDT [id number] Gestational Age: 35w 2d, recheck b/p, has a lot of pelvic pressure, has some leakage after she voids,JZ No sx pree. Repeat bp 122/80. Nitrazine negative. No ctx/vb. Decreased movement. BPP performed in clinic ANA LUISA 16cm. +2 breathing, +2 flexion/extension, +2 gross movement, +2 fluid = 88 Source: [facility] RWHXTRANSXRTFSYS Document Id: [id number] documented in this encounter Plan of Treatment Not on filedocumented as of this encounter Visit Diagnoses Not on filedocumented in this encounter
--- OUTSIDE RECORDS SUMMARY | 2022-07-24 08:33 | XMS_ITS | Encounter Summary ---
:1985 Author Organization [facility] Address [address] [place] [address] Care Team Providers Name Role Phone Unavailable [...] How often do you attend jew or orthodoxy More than 4 time s [...] Kinney M.D. - 01/02/2008 10:25 AM CDT [id number] [facility] [address] [facility], [address] Name: Carol Juraez Birthdate: 1985 [facility] Ad[facility] Date: [...] - less than [address] Mariaelena Kniney 01/06/2008 Source: [facility] RWMCHXTRANSXRTFSYS Document Id: [id number] Electronically signed by [facility], [facility] Intermodal Truck Driver [id number] at 01/25/2017 4:45 AM CDT Miscellaneous - Conversion, Historical Provider Ser - 01/02/2008 10:25 AM CDT [id number] [address] [place] [address] Name: Carol Juarez Birthdate: 1985 SSN: [id number] [facility] Allergy: No known allergies Discharge Date: 01/06/2008 Obstetrical Discharge Instructions Information given to patient: [facility] Immunization - Yes Notice of Phone Call [...] documentation info: (time, how & by). Source: [facility] RWHXTRANSXRTFSYS Document Id: [id number] documented in this encounter Plan of Treatment Not on filedocumented as of this encounter Visit Diagnoses Not on filedocumented in this encounter
--- OUTSIDE RECORDS SUMMARY | 2022-07-24 08:33 | XMS_ITS | Encounter Summary ---
:1985 Author Organization [facility] Address [address] [place] [address] Care Team Providers Name Role Phone Unavailable Primary Care Provider Unavailable Encounter Details Date Type Department Care Team Description 06/04/2008 Hospital Encounter [facility] INPT/OBSRV Neema Nieves M.D. Social History [...]
--- OUTSIDE RECORDS SUMMARY | 2022-07-24 08:33 | XMS_ITS | Encounter Summary ---
:1985 Author Organization [facility] Address [address] [place] [address] Care Team Providers Name Role Phone Unavailable [...] How often do you attend christianity or voodoo More than 4 time s [...]
--- OUTSIDE RECORDS SUMMARY | 2022-07-24 08:33 | XMS_ITS | Encounter Summary ---
:1985 Author Organization [facility] Address [address] [place] [address] Care Team Providers Name Role Phone Unavailable Primary Care Provider Unavailable Encounter Details Date Type Department Care Team Description 02/04/2010 Hospital Encounter [facility] X[facility] Provider, Histori huma Social History [...] How often do you attend mosque or yazidism More than 4 time s [...] Yousif M.D. - 02/04/2010 11:00 AM CDT [id number] Quick Note: Nursing: please call patient to inform her the wet prep and ultrasound were both normal. Thanks. Source: [facility] RWMCHXTRANSXSYS Document Id: [id number] Electronically signed by Conversion, [facility] Biodiesel Product Manager [id number] at 01/24/2017 11:08 AM CDT documented in this encounter Plan of Treatment Not on filedocumented as of this encounter Visit Diagnoses Not on filedocumented in this encounter
--- OUTSIDE RECORDS SUMMARY | 2022-07-24 08:33 | XMS_ITS | Encounter Summary ---
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 Source: [facility] RWHXTRANSXRTFSYS Document Id: [id number] documented in this encounter Plan of Treatment Not on filedocumented as of this encounter Visit Diagnoses Not on filedocumented in this encounter
--- OUTSIDE RECORDS SUMMARY | 2022-07-24 08:33 | XMS_ITS | Encounter Summary ---
:1985 Author Organization [facility] Address [address] [place] [address] Care Team Providers Name Role Phone Unavailable Primary Care Provider Unavailable Encounter Details Date Type Department Care Team Description 12/14/2007 Hospital Encounter HX [facility] OBGYN Provider, Histor ical Social [...] How often do you attend methodist or mandaeism More than 4 time s [...] Provider Ser - 12/14/2007 9:45 AM CDT [id number] No complaints, exam normal KRN No regular contractions KRN [facility] Document Id: [id number] documented in this encounter Plan of Treatment Not on filedocumented as of this encounter Visit Diagnoses Not on filedocumented in this encounter
--- OUTSIDE RECORDS SUMMARY | 2022-07-24 08:33 | XMS_ITS | Encounter Summary ---
:1985 Author Organization [facility] Address [address] [place] [address] Care Team Providers Name Role Phone Unavailable Primary Care Provider Unavailable Encounter Details Date Type Department Care Team Description 12/29/2007 Hospital [facility] Casi Vo M.D. [address] [place], [place] [phone] (Wo rk) Social History [...] How often do you attend confucianist or hinduism More than 4 time s [...] Grove M.D. - 12/29/2007 12:00 AM CDT [id number] [facility] [address] [facility], [address] Name: Carol Juarez Birthdate: 1985 [facility] Admission Date: 12/27/2007 Allergy: [...] minutes. Dr. Ann Grove MD 12/29/2007 Source: [facility] RWHXTRANSXRTFSYS Document Id: [id number] Electronically signed by Conversion, [facility] Wind Commissioning Technician [id number] at 01/25/2017 4:45 AM CDT Miscellaneous - Conversion, Historical Provider Ser - 12/29/2007 12:00 AM CDT [id number] [address], [address] Name: Carol Juarez Birthdate: 1985 SSN: [id number] [facility] Allergy: No known allergies Discharge Date: [...] documentation info: (time, how & by). Source: [facility] RWMCHXTRANSXRTFSYS Document Id: [id number] documented in this encounter Plan of Treatment Not on filedocumented as of this encounter Visit Diagnoses Not on filedocumented in this encounter
--- OUTSIDE RECORDS SUMMARY | 2022-07-24 08:33 | XMS_ITS | Encounter Summary ---
:1985 Author Organization [facility] Address [address] [place] [address] Care Team Providers Name Role Phone Unavailable Primary Care Provider Unavailable Encounter Details Date Type Department Care Team Description 01/02/2008 Hospital Encounter [facility] Casi Vo M.D. [address] [place], [place] [phone] (Wo rk) Social History [...] How often do you attend restoration or mandaeism More than 4 time s [...] Grove M.D. - 01/02/2008 9:30 AM CDT [id number] Here for NST/ANA LUISA. Failed IOL last week for PIH. Was on BR all weekend BP normal today. O: ANA LUISA=4.5 A/P Gestational Age: 40w 5d , oligohydramnios. history of evolving PIH but BPs have been normal on BR. Admit. KG Source: [facility] RWMCHXTRANSXRTFSYS Document Id: [id number] Electronically signed by Conversion, [facility] Plant Changer [id number] at 01/25/2017 4:45 AM CDT documented in this encounter Plan of Treatment Not on filedocumented as of this encounter Visit Diagnoses Not on filedocumented in this encounter
--- OUTSIDE RECORDS SUMMARY | 2022-07-24 08:33 | XMS_ITS | Encounter Summary ---
:1985 Author Organization [facility] Address [address] [place] [address] Care Team Providers Name Role Phone Unavailable Primary Care Provider Unavailable Encounter Details Date Type Department Care Team Description 12/07/[address] [facility] Marisol Galaviz, APR N, C.N.P. [address] [place], [place] [phone] (Wo rk) Social History [...] How often do you attend temple or synagogue More than 4 time s [...] C.NBrittaneyP., R.N. - 12/07/2007 10:30 AM CDT [id number] Carol is here at Gestational Age: 37w. [...] Enc. to call with any concerns. [facility] Document Id: [id number] Marisol Irving C.N.P., R.N. - 12/07/2007 10:30 AM CDT [id number] Gestational Age: 37w GBS and HGB done today. plan and hospital arrival information given. C/O low back, leg and pelvic pain all the time. Hurts to stand more than 5 min at a time. BR Will limit work to 4 hours per day d/t increased edema. Warning signs discussed. FKC also discussed.ZENON [facility] Document Id: [id number] documented in this encounter Miscellaneous Notes Miscellaneous - Marisol Irving C.N.P., R.N. - 12/07/2007 10:30 AM CDT [id number] Date: 12/07/2007 Name: Carol Juarez Birthdate: 1985 The patient was seen at: [facility] today Restrictions if any: Please limit work to 4 hours per day. Marisol Irving RN, WELFARE SUPERVISOR OBSTETRICS/GYNECOLOGY [facility] Source: [facility] RWMCHXTRANSXRTFSYS Document Id: [id number] documented in this encounter Plan of Treatment Not on filedocumented as of this encounter Visit Diagnoses Not on filedocumented in this encounter
--- OUTSIDE RECORDS SUMMARY | 2022-07-24 08:33 | XMS_ITS | Encounter Summary ---
:1985 Author Organization [facility] Address [address] [place] [address] Care Team Providers Name Role Phone Unavailable Primary Care Provider Unavailable Encounter Details Date Type Department Care Team Description 02/04/2010 Hospital Encounter [facility] Yamel Koch M.D. [address] [place] [address] (Wo rk) Social History Tobacco [...] How often do you attend restoration or uatsdin More than 4 time s [...] Giang M.D. - 02/04/2010 9:00 AM CDT [id number] Chief Complaint Patient presents with Abdominal Pain [...] well. Wet prep reviewed and normal. Source: [facility] RWHXTRANSXRTFSYS Document Id: [id number] Electronically signed by Conversion, [facility] Mix Technician [id number] at 01/24/2017 11:08 AM CDT documented in this encounter Plan of Treatment Not on filedocumented as of this encounter Visit Diagnoses Not on filedocumented in this encounter
--- OUTSIDE RECORDS SUMMARY | 2022-07-24 08:33 | XMS_ITS | Encounter Summary ---
:1985 Author Organization [facility] Address [address] [place] [address] Care Team Providers Name Role Phone Unavailable Primary Care Provider Unavailable Encounter Details Date Type Department Care Team Description 01/20/2008 Hospital Encounter HX [facility] Adonis Weir M.D. [address] [place] [phone] (Wo rk) Social History Tobacco [...] Hooks M.D. - 01/20/2008 10:45 AM CDT [id number] Carol is sent from Peds (there with [...] epigastric pain resolving Plan: Amylase, CBC [facility] Document Id: [id number] documented in this encounter Plan of Treatment Not on filedocumented as of this encounter Visit Diagnoses Not on filedocumented in this encounter
--- OUTSIDE RECORDS SUMMARY | 2022-07-24 08:33 | XMS_ITS | Encounter Summary ---
:1985 Author Organization [facility] Address [address] [place] [address] Care Team Providers Name Role Phone Unavailable [...] How often do you attend jewish or jewish More than 4 time s [...] Historical Provider Ser - 08/23/2008 12:00 AM DIGITAL MEDIA MANAGER [id number] 07/02/2009 - Date of R/C request: 06-12-09 Records sent to: Care Delivery Management [facility] Bambi Oh RN - [address] [address] [place] [address] [facility] Description of Disclosure: 12-27-07 to 12-29-07. 12-30-07 to 12-30-07, 01-02-08 to 01-06-08 Purpose of Disclosure: insurance for payment audit Authorization: NO [facility] Document Id: [id number] documented in this encounter Plan of Treatment Not on filedocumented as of this encounter Visit Diagnoses Not on filedocumented in this encounter
--- OUTSIDE RECORDS SUMMARY | 2022-07-24 08:33 | XMS_ITS | Encounter Summary ---
:1985 Author Organization [facility] Address [address] [place] [address] Care Team Providers Name Role Phone Unavailable Primary Care Provider Unavailable Encounter Details Date Type Department Care Team Description 11/21/2007 Hospital Encounter [facility] Yamel Koch M.D. [address] [place] [address] (Wo rk) Social History [...] How often do you attend caodaism or yazidi More than 4 time s [...] Yousif M.D. 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 She is from [employer]. She has not tried any medications for [...] delivers. PCN/analia/mp Source: [facility] RWMCHXTRANSXRTFSYS Document Id: [id number] documented in this encounter Plan of Treatment Not on filedocumented as of this encounter Visit Diagnoses Not on filedocumented in this encounter
--- OUTSIDE RECORDS SUMMARY | 2022-07-24 08:33 | XMS_ITS | Encounter Summary ---
:[address] [facility] Address [address] [place] [address] Care Team Providers Name Role Phone Unavailable Primary Care Provider Unavailable Encounter Details Date Type Department Care Team Description 02/22/2009 Hospital Encounter HX NO MAPPING Rizwan Dean M.D. [address] [place], [place] [phone] (Wo rk) Social History [...] How often do you attend scientologist or tenriism More than 4 time s [...]
--- OUTSIDE RECORDS SUMMARY | 2022-07-24 08:33 | XMS_ITS | Encounter Summary ---
:1985 Author Organization [facility] Address [address] [place] [address] Care Team Providers Name Role Phone Unavailable Primary Care Provider Unavailable Encounter Details Date Type Department Care Team Description 10/30/2008 [facility] Casi Vo M.D. [address] [place], [place] [phone] (Wo rk) Social History [...] How often do you attend mandaen or sikh More than 4 time s [...] Grove M.D. - 10/30/2008 2:30 PM CDT [id number] Carol is a 22 year old here for her annual exam. 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 [employer] HX: no abnormal paps. Her menses are [...] GERD, not daily BREAST: Negative : Negative SPA THERAPIST: Negative CV: Negative PULMONARY: Negative MUSCULOSKELETAL: Negative PSYCH: Negative SOCIAL HISTORY: History Social History Marital Status: Single Spouse Name: N/A Number of Children: N/A Years of Education: 13 Occupational History [employer] Social History Main Topics Tobacco Use: [...] scattered benign nevi ASSESSMENT AND PLAN: Annual [employer] exam. Declines Chl screen (monogamous) Health maintenance includes: pap smear done today and smoking cessation. [facility] Document Id: [id number] Electronically signed by Roland, [facility] Gas Pumping Station Supervisor [id number] at 01/24/2017 4:40 PM CDT documented in this encounter Miscellaneous Notes Miscellaneous - Conversion, Historical Provider Ser - 10/30/2008 2:30 PM CDT [id number] Carol Juarez [address] [place] [phone] November 01, 2008 Dear Carol Juarez, I am happy to inform you that your recent cervical cancer screening test (PAP smear) was normal. Preventative screening such as this helps insure your health for years to come. Congratulations for taking care of yourself! Please contact my office if you have any further questions. [phone]. Sincerely, Ann Grove M.D. OBSTETRICS/GYNECOLOGY [facility] Source: [facility] Document Id: [id number] documented in this encounter Plan of Treatment Not on filedocumented as of this encounter Visit Diagnoses Not on filedocumented in this encounter
--- OUTSIDE RECORDS SUMMARY | 2022-07-24 08:33 | XMS_ITS | Encounter Summary ---
:1985 Author Organization [facility] Address [address] [place] [address] Care Team Providers Name Role Phone Unavailable Primary Care Provider Unavailable Encounter Details Date Type Department Care Team Description 05/19/2009 Hospital Encounter [facility] INPT[facility]OBSRV Chon Babin M.D. [address] [place], [place] [phone] (Wo rk) Social History Tobacco Use Types [...]
--- OUTSIDE RECORDS SUMMARY | 2022-07-24 08:33 | XMS_ITS | Encounter Summary ---
:1985 Author Organization [facility] Address [address] [place] [address] Care Team Providers Name Role Phone Unavailable [...] How often do you attend mormonism or yazidism More than 4 time s [...]
--- OUTSIDE RECORDS SUMMARY | 2022-07-24 08:33 | XMS_ITS | Encounter Summary ---
:1985 Author Organization [facility] Address [address] [place] [address] Care Team Providers Name Role Phone Unavailable Primary Care Provider Unavailable Encounter Details Date Type Department Care Team Description 02/17/2010 Hospital Encounter HX NO MAPPING Berny Garcia M.D. [address] [place], [place] [phone] (Wo rk) Social History [...] How often do you attend hinduism or roman catholic More than 4 time [...]
--- OUTSIDE RECORDS SUMMARY | 2022-07-24 08:33 | XMS_ITS | Encounter Summary ---
:1985 Author Organization [facility] Address [address] [place] [address] Care Team Providers Name Role Phone Unavailable Primary Care Provider Unavailable Encounter Details Date Type Department Care Team Description 10/03/2008 Hospital Encounter [facility] Provider, [facility] Social History Tobacco Use Types Packs/Day [...] How often do you attend mormonism or congregational More than 4 time s [...] Provider Ser - 10/03/2008 12:00 AM CST [id number] TELEPHONE TRIAGE ENCOUNTER FORM Date: 10/03/2008 PCP: Venu Yousif MD, MD Patient Name: Carol Juarez Gender: female : 1985 Age: [age] year old Time: 11:35 AM Phone Numbers: [phone] (home) Pharmacy: [facility] [employer] [employer] FALLS ASSESSMENT Presenting Problem: Skin infection/left hand [...] FOLLOW-UP Will see Eddie Mcnair today. Source: [facility] RWHXTRANSXRTFSYS Document Id: [id number] documented in this encounter Plan of Treatment Not on filedocumented as of this encounter Visit Diagnoses Not on filedocumented in this encounter
--- OUTSIDE RECORDS SUMMARY | 2022-07-24 08:34 | XMS_ITS | Encounter Summary ---
:1985 Author Organization [facility] Address [address] [place] [address] Care Team Providers Name Role Phone Unavailable Primary Care Provider Unavailable Encounter Details Date Type Department Care Team Description 11/21/2007 Hospital Encounter [facility] Casi Vo M.D. [address] [place], [place] [phone] (Wo rk) Social History [...] How often do you attend gnosticism or religion More than 4 time s [...] Grove M.D. - 11/21/2007 2:00 PM CDT [id number] Gestational Age: 34w 5d C/O increased edema in feet and hands. BR Repeat BP 130/78 sitting. Reviewed S/S of PIH, will limit work to 8 hrs a day (now working 10hr) follow up in 4-5 days. KG Source: [facility] Document Id: [id number] Electronically signed by Conversion, [facility] Fashion Adviser [id number] at 01/25/2017 1:26 AM CDT documented in this encounter Miscellaneous Notes Miscellaneous - Ann Grove M.D. - 11/21/2007 2:00 PM CDT [id number] Return to Work Release Date: 11/21/2007 Name: Carol Juarez Birthdate: 1985 The patient was seen at: [facility] today Restrictions if any: May work no more than 8 hrs due to complications. Ann Grove M.D. OBSTETRICS/GYNECOLOGY [facility] Source: [facility] Document Id: [id number] Electronically signed by Conversion, [facility] Fashion Adviser [id number] at 01/25/2017 1:26 AM CDT documented in this encounter Plan of Treatment Not on filedocumented as of this encounter Visit Diagnoses Not on filedocumented in this encounter
--- OUTSIDE RECORDS SUMMARY | 2022-07-24 08:34 | XMS_ITS | Encounter Summary ---
:1985 Author Organization [facility] Address [address] [place] [address] Care Team Providers Name Role Phone Unavailable Primary Care Provider Unavailable Encounter Details Date Type Department Care Team Description 10/10/2007 Hospital Encounter [facility] Adonis Weir M.D. [address] [place] [phone] (Wo rk) Social History Tobacco [...] How often do you attend yarsanism or jewish More than 4 time s [...] Provider Ser - 10/10/2007 11:00 AM CST [id number] Gestational Age: 28w 5d Rhogam Injection given today. BR No concerns wds Source: [facility] RWHXTRANSXRTFSYS Document Id: [id number] documented in this encounter Plan of Treatment Not on filedocumented as of this encounter Visit Diagnoses Not on filedocumented in this encounter
--- OUTSIDE RECORDS SUMMARY | 2022-07-24 08:34 | XMS_ITS | Encounter Summary ---
:[address] [facility] Address [address] [place] [address] Care Team Providers Name Role Phone Unavailable [...] How often do you attend anglican or latter-day More than 4 time s [...]
--- OUTSIDE RECORDS SUMMARY | 2022-07-24 08:34 | XMS_ITS | Encounter Summary ---
:1985 Author Organization [facility] Address [address] [place] [address] Care Team Providers Name Role Phone Unavailable Primary Care Provider Unavailable Encounter Details Date Type Department Care Team Description 10/24/2007 Hospital Encounter [facility] Mariaelena Mcintosh M.D. Social History [...] How often do you attend jew or islam More than 4 time s [...] Kinney M.D. - 10/24/2007 11:00 AM CST [id number] Has some mild CHOWDHURY, migranes Used tylenol and Caffeine. Good movement. Exam normal. Skin lesion onarms - will get derm consult. KD [facility] Document Id: [id number] Electronically signed by Conversion, [employer] Teacher Emotionally Impaired [id number] at 01/25/2017 1:26 AM CDT documented in this encounter Plan of Treatment Not on filedocumented as of this encounter Visit Diagnoses Not on filedocumented in this encounter
--- OUTSIDE RECORDS SUMMARY | 2022-07-24 08:34 | XMS_ITS | Encounter Summary ---
:1985 Author Organization [facility] Address [address] [place] [address] Care Team Providers Name Role Phone Unavailable Primary Care Provider Unavailable Encounter Details Date Type Department Care Team Description 08/26/2007 Hospital Encounter [facility] XRAY Provider, Histori huma Social History [...] Historical Provider Ser - 08/26/2007 8:45 AM PRESSURE STEAMER TENDER [id number] Carol Juarez [address] [place] [phone] September 01, 2007 Dear Ms. Juarez: I [...] or problems, please contact our office at [phone]. Sincerely, Rylee Grijalva MD Dept. COLLECTIONS CURATOR [facility] Source: [facility] Document Id: [id number] documented in this encounter Plan of Treatment Not on filedocumented as of this encounter Visit Diagnoses Not on filedocumented in this encounter
--- OUTSIDE RECORDS SUMMARY | 2022-07-24 08:34 | XMS_ITS | Encounter Summary ---
:1985 Author Organization [facility] Address [address] [place] [address] Care Team Providers Name Role Phone Unavailable Primary Care Provider Unavailable Encounter Details Date Type Department Care Team Description 05/24/2007 Hospital Encounter HX [facility] OBGYN Provider, Histor ical Social [...] How often do you attend mandaeism or samaritan More than 4 time s [...] Provider Ser - 05/24/2007 12:00 AM CDT [id number] LMP: 03/12/07- Uncertain Dates NGA: 12/18/06 Triage/Phone [...] as soon as can be scheduled. Source: [facility] RWHXTRANSXRTFSYS Document Id: [id number] documented in this encounter Plan of Treatment Not on filedocumented as of this encounter Visit Diagnoses Not on filedocumented in this encounter
--- OUTSIDE RECORDS SUMMARY | 2022-07-24 08:34 | XMS_ITS | Encounter Summary ---
:1985 Author Organization [facility] Address [address] [place] [address] Care Team Providers Name Role Phone Unavailable Primary Care Provider Unavailable Encounter Details Date Type Department Care Team Description 06/27/2007 Hospital Encounter HX [facility] Marisol Galaviz, APR N, C.N.P. [address] [place], [place] [phone] (Wo rk) Social History [...] C.NLebron., R.N. - 06/27/2007 11:00 AM CST [id number] Addended by: MARISOL IRVING on: 06/29/2007 12:10:37 PM Modules accepted: Orders [facility] Document Id: [id number] Electronically signed by Conversion, [facility] Centerpuncher [id number] at 01/25/2017 10:01 AM CDT Conversion, Historical Provider Ser - 06/27/2007 11:00 AM CST [id number] Addended by: LORENZO ARIAS on: 06/29/2007 1:34:55 PM Modules accepted: Orders [facility] Document Id: [id number] Conversion, Historical Provider Ser - 06/27/2007 11:00 AM CST [id number] OK for message at home Genetic Screening: [...] to early sono done. She lives in [place] with mother. Carol has been feeling OK. She works at [employer]. Family is close and supportive. [facility]. Assessment: vitamins: Is taking them. Diet: Regular diet, no history of an eating disorder. Adequate calcium intake discussed. She has been referred to meet with the cloud systems architect. Transportation issues: none Safe relationship: She feels safe in current relationship. She has no history of abusive relationhips. Financial Concerns: doing OK Insurance: applying for ID Social Service/Public Health: WIC She is a [...] call with any questions. Referrals: None Source[facility] Document Id: [id number] Marisol Irving C.NBrittaneyP., R.N. - 06/27/2007 11:00 AM CST [id number] Body mass index is 40.11 kg/(m`2). Obesity protocol. 1 GTT with next visit. Early sono done for dates. Applying for MA, WIC, GCPH consult ordered. Quitting smoking. ZENON Source: [facility] Document Id: [id number] Electronically signed by Conversion, [facility] Centerpuncher [id number] at 01/25/2017 10:01 AM CDT documented in this encounter Miscellaneous Notes Miscellaneous - Conversion, Historical Provider Ser - 06/27/2007 11:00 AM RUBBER MILL OPERATOR [id number] Carol Juarez [address] [place] [phone] June 29, 2007 Dear Carol Juarez, I am happy to inform you that your recent cervical cancer screening test (PAP smear) was normal. Preventative screening such as this helps insure your health for years to come. Congratulations for taking care of yourself! Please contact my office if you have any further questions. [phone]. Sincerely, Marisol Irving RN, BUSINESS SYSTEMS ADMINISTRATOR OBSTETRICS/GYNECOLOGY [facility] Source: [facility] Document Id: [id number] Miscellaneous - Marisol Irving C.N.P., R.N. - 06/27/2007 11:00 AM CST [id number] Carol Juarez [address] [place] [phone] June 29, 2007 MR#: [id number] Dear Carol, I am happy to inform [...] free to give me a call at [phone]. Sincerely, Marisol Irving RN,BUSINESS SYSTEMS ADMINISTRATOR hammer fitter [facility] Source: [facility] Document Id: [id number] Electronically signed by Conversion, [facility] Centerpuncher [id number] at 01/25/2017 10:01 AM CDT documented in this encounter Plan of Treatment Not on filedocumented as of this encounter Visit Diagnoses Not on filedocumented in this encounter
--- OUTSIDE RECORDS SUMMARY | 2022-07-24 08:34 | XMS_ITS | Encounter Summary ---
:1985 Author Organization [facility] Address [address] [place] [address] Care Team Providers Name Role Phone Unavailable Primary Care Provider Unavailable Encounter Details Date Type Department Care Team Description 06/01/2007 Hospital Encounter HX NO MAPPING Marisol Irving APRN, C.N.P. [address] [place], [place] [phone] (Wo rk) Social History [...] often do you attend jehovah's witness or sabianist More than 4 time s [...]
--- OUTSIDE RECORDS SUMMARY | 2022-07-24 08:34 | XMS_ITS | Encounter Summary ---
:1985 Author Organization [facility] Address [address] [place] [address] Care Team Providers Name Role Phone Unavailable Primary Care Provider Unavailable Encounter Details Date Type Department Care Team Description 09/28/2007 Hospital En[facility] Manuel Paula P.A.-C., P.A. [address] [place] [address] (Wo rk) Social History [...] How often do you attend voodoo or taoist More than 4 time s [...] Karey Lanza - 09/28/2007 8:30 AM CST [id number] SUBJECTIVE: Carol is a 21 year old [...] week or sooner if symptoms wrosen Source: [facility] Document Id: [id number] documented in this encounter Miscellaneous Notes Miscellaneous - Karey Paula - 09/28/2007 8:30 AM CST [id number] Carol Juarez [address] [place] [phone] [id number] September 28, 2007 To whom it may concern Please excuse Carol Juarez from work for illness on 09/28/2007. She may return to work on 09/29/2007 without limitation. If you have any other questions or concerns please feel free to contact me at anytime. Sincerely, Karey Paula PA-C Department of Family Practice [facility] Source: [facility] RWHXTRANSXRTFSYS Document Id: [id number] documented in this encounter Plan of Treatment Not on filedocumented as of this encounter Visit Diagnoses Not on filedocumented in this encounter
--- OUTSIDE RECORDS SUMMARY | 2022-07-24 08:34 | XMS_ITS | Encounter Summary ---
:1985 Author Organization [facility] Address [address] [place] [address] Care Team Providers Name Role Phone Unavailable Primary Care Provider Unavailable Encounter Details Date Type Department Care Team Description 09/28/2007 Hospital Encounter [facility] FAMILYPRA Dave Dela Cruz, R.N. Social History [...] How often do you attend christianity or confucianist More than 4 time s [...] Cruz R.N. - 09/28/2007 12:00 AM CST [id number] Patient called reports that she was into [...] Patient agrees to plan or care. Source: [facility] RWHXTRANSXRTFSYS Document Id: [id number] Electronically signed by Conversion, [facility] Solution Professional [id number] at 01/25/2017 12:10 AM CDT documented in this encounter Plan of Treatment Not on filedocumented as of this encounter Visit Diagnoses Not on filedocumented in this encounter
--- OUTSIDE RECORDS SUMMARY | 2022-07-24 08:34 | XMS_ITS | Encounter Summary ---
:1985 Author Organization [facility] Address [address] [place] [address] Care Team Providers Name Role Phone Unavailable Primary Care Provider Unavailable Encounter Details Date Type Department Care Team Description 08/26/[address] [facility] Casi Vo M.D. [address] [place], [place] [phone] (Wo rk) Social History [...] Grove M.D. - 08/26/2007 9:30 AM CST [id number] Less GERD, not taking it now. Had US today. KG [facility] RWHXTRANSXRTFSYS Document Id: [id number] documented in this encounter Plan of Treatment Not on filedocumented as of this encounter Visit Diagnoses Not on filedocumented in this encounter
--- OUTSIDE RECORDS SUMMARY | 2022-07-24 08:34 | XMS_ITS | Encounter Summary ---
:1985 Author Organization [facility] Address [address] [place] [address] Care Team Providers Name Role Phone Unavailable Primary Care Provider Unavailable Encounter Details Date Type Department Care Team Description 11/07/2007 Hospital Encounter HX [facility] OBGYN Provider, Histor ical [...] How often do you attend caodaism or mandaeism More than 4 time s [...] Provider Ser - 11/07/2007 10:30 AM CDT [id number] C/o pressure.TM Patient reassured Would like to be seen by primary for rash. Has depigmented areas on foreqrms bilaterally. Not rpesent on remainder of body. Has had prior to , no other symptoms. KRN Source: [facility] Document Id: [id number] documented in this encounter Plan of Treatment Not on filedocumented as of this encounter Visit Diagnoses Not on filedocumented in this encounter
--- OUTSIDE RECORDS SUMMARY | 2022-07-24 08:34 | XMS_ITS | Encounter Summary ---
:1985 Author Organization [facility] Address [address] [place] [address] Care Team Providers Name Role Phone Unavailable Primary Care Provider Unavailable Encounter Details Date Type Department Care Team Description 07/27/2007 Hospital Encounter [facility] How often do you attend jew or moravian More than 4 time s [...] Monsivais L.PBrittaneyNBrittaney - 07/27/2007 8:45 AM CST [id number] Addended by: ALISON GONZALEZ on: 07/27/2007 9:07:44 AM Modules accepted: Orders Source: [facility] Document Id: [id number] Electronically signed by Conversion, [facility] Gimp Tacker [id number] at 01/25/2017 5:21 AM CDT Conversion, Historical Provider Ser - 07/27/2007 8:45 AM CST [id number] Gestational Age: 18w, feels ok, 20 week waiver signed,declines to have quad test, JZ Doing well, no concerns. Early 1hr glu today. U/s ordered. Source: [facility] Document Id: [id number] documented in this encounter Miscellaneous Notes Miscellaneous - Marisol Irving, C.N.P., R.N. - 07/27/2007 8:45 AM CST [id number] [facility] [address] [place] [address] July 27, 2007 Carol Juarez [address] [place] [phone] Dear Ms. Juarez: I am writing to [...] or problems, please contact our office at [phone]. Sincerely, Marisol Irving RN, SPORTS EDITOR [facility] Source: [facility] Document Id: [id number] Electronically signed by Conversion, [facility] Gimp Tacker [id number] at 01/25/2017 5:21 AM CDT documented in this encounter Plan of Treatment Not on filedocumented as of this encounter Visit Diagnoses Not on filedocumented in this encounter
--- OUTSIDE RECORDS SUMMARY | 2022-07-24 08:34 | XMS_ITS | Encounter Summary ---
:1985 Author Organization [facility] Address [address] [place] [address] Care Team Providers Name Role Phone Unavailable Primary Care Provider Unavailable Encounter Details Date Type Department Care Team Description 08/18/2007 Hospital Encounter [facility] Casi Vo M.D. [address] [place], [place] [phone] (Wo rk) Social History [...] How often do you attend holiness or pentecostalism More than 4 time s [...] Grove M.D. - 08/18/2007 9:15 AM CST [id number] Had presyncopal episode at work this am, better now GERD-can try zantac and maalox prn. KG Source: [facility] RWHXTRANSXRTFSYS Document Id: [id number] documented in this encounter Plan of Treatment Not on filedocumented as of this encounter Visit Diagnoses Not on filedocumented in this encounter
--- OUTSIDE RECORDS SUMMARY | 2022-07-24 08:34 | XMS_ITS | Encounter Summary ---
:1985 Author Organization [facility] Address [address] [place] [address] Care Team Providers Name Role Phone Unavailable Primary Care Provider Unavailable Encounter Details Date Type Department Care Team Description 09/26/2007 Hospital Encounter [facility] Provider, Historic al Social History [...] How often do you attend buddhism or spiritism More than 4 time s [...]
--- OUTSIDE RECORDS SUMMARY | 2022-07-24 08:34 | XMS_ITS | Encounter Summary ---
:1985 Author Organization [facility] Address [address] [place] [address] Care Team Providers Name Role Phone Unavailable Primary Care Provider Unavailable Encounter Details Date Type Department Care Team Description 09/26/2007 [facility] Marisol Galaviz, APR N, C.N.P. [address] [place], [place] [phone] (Wo rk) Social History [...] How often do you attend adventism or jainism More than 4 time s [...] Provider Ser - 09/26/2007 9:45 AM CST [id number] Carol is here for her 26 week visit. She is Gestational Age: 26w 5d weeks today. 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 Carol understands the [...] discussed: none Next appointment: 2,4 weeks Source: [facility] Document Id: [id number] Marisol Irving C.N.P., R.N. - 09/26/2007 9:45 AM CST [id number] Gestational Age: 27w 5d 1 hr gtt, antibody screen and hgb done today. certificate form given. BR Doing well. Attending classes. ZENON Source: [facility] Document Id: [id number] Electronically signed by [facility], [facility] Banking Specialist [id number] at 01/25/2017 12:10 AM CDT documented in this encounter Miscellaneous Notes Miscellaneous - Marisol Irving C.N.P., R.N. - 09/26/2007 9:45 AM CST [id number] [facility] [address] [place] [address] September 27, 2007 Carol Juarez [address] [place] [phone] Dear Ms. Juarez: I am writing to [...] or problems, please contact our office at [phone]. Sincerely, Marisol Irving RN, PRODUCT DESIGNER [facility]: [facility] Document Id: [id number] documented in this encounter Plan of Treatment Not on filedocumented as of this encounter Visit Diagnoses Not on filedocumented in this encounter
--- OUTSIDE RECORDS SUMMARY | 2022-07-24 08:34 | XMS_ITS | Encounter Summary ---
:1985 Author Organization [facility] Address [address] [place] [address] Care Team Providers Name Role Phone Unavailable Primary Care Provider Unavailable Encounter Details Date Type Department Care Team Description 06/01/2007 Hospital Encounter [facility] XRAY Provider, Histori huma Social History [...] How often do you attend moravian or orthodox More than 4 time s [...]
[2022-07-24 12:03] LABS: HCG Quantitative* 25.86 mIU/mL
== END 2022-07-24 15:42 | disposition home or self-care (01) ==
PROVIDERS: Visit Provider Obstetrics & Gynecology
DX: O02.1 Missed abortion (principal)
CPT/HCPCS: 84702

== ENCOUNTER 2022-07-29 08:20 | Outpatient (CLI) | payer OTHER, SELFPAY ==
--- OUTSIDE RECORDS SUMMARY | 2022-07-29 08:23 | XMS_ITS | Encounter Summary ---
:1985 Author Organization [facility] Address [address] [place] [address] Care Team Providers Name Role Phone Alberto Locke M.D. Primary Care Provider Reason for Visit Outpatient (Routine) - Canceled Specialty Diagnoses / Procedures Referred By Contact Refer red To Contact Diagnoses Surveillance Intrauterine Device [place], Oluwafunmilayo O, [facility] Region Procedures US Pelvis Transvaginal and Transabdominal US Pelvis Transvaginal and Transabdominal M.DBrittaney [address] [place] [address] Referral ID Status Reason Start Date Expiration Date Visits V isits Requested Authorized [id number] Canceled 05/13/2022 05/13/2023 1 1 Encounter Details Date Type Department Care Team Description 05/13/2022 Hospital Department of [place], Surveillance Encounter Radiology in Red Oluwafunmilayo O, Intrau terine Device [place], [place] M.DBrittaney [address] [facility] [address] [place] [phone] (Wo rk) Social History Tobacco Use Types [...] How often do you attend rastafari or mormon More than 4 time s [...] Unknown, NGA: N/A INTRAUTERINE Pole: Not seen, [place] Length: N/A Gestational Sac: Normal Yolk Sac: [...] Unknown, NGA: N/A INTRAUTERINE Pole: Not seen, [place] Length: N/A Gestational Sac: Normal Yolk Sac: [...] Depression Total Score: 9 07/08/2020 3:59 PM ALUMINUM BOATS ASSEMBLER documented as of this encounter Care Teams Chemical Processing Supervisor Relationship Specialty Start Date End Date Alberto Locke M.D. PCP - General Family Medicine 04/27/19 documented as of this encounter
--- OUTSIDE RECORDS SUMMARY | 2022-07-29 08:23 | XMS_ITS | Encounter Summary ---
:1985 Author Organization [facility] Address [address] [place] [address] Care Team Providers Name Role Phone Alberto Locke M.D. Primary Care Provider Encounter Details Date Type Department Care Team Description 06/09/2022 Clinical Support [facility] in [address] [phone] Social History Tobacco Use Types Packs/Day [...] How often do you attend confucianism or zoroastrianism More than 4 time s [...] Depression Total Score: 9 07/08/2020 3:59 PM SIGN OUT CLERK documented as of this encounter Care Teams Package Sealer Relationship Specialty Start Date End Date Alberto Locke M.D. PCP - General Family Medicine 04/27/19 documented as of this encounter
--- OUTSIDE RECORDS SUMMARY | 2022-07-29 08:23 | XMS_ITS | Encounter Summary ---
:1985 Author Organization [facility] Address [address] [place] [address] Care Team Providers Name Role Phone Alberto Locke M.D. Primary Care Provider Reason for Visit Reason Comments Ankle Injury Encounter Details Date Type Department Care Team Description 05/26/2022 Emergency [place] [facility], Jeaneth Bustillos, Inj ury Ankle Initial Right (Primary Dx); Department P.A.-C. Sprain Ankle Initial Right [address] [place] [phone] Social History Tobacco Use Types Packs/Day [...] be sent through Care Everywhere. Ankle Sprain (Urdu)documented in this encounter Medications at Time of [...] disposition will be home. Nuno Quijano, ZEYAD, INSTRUMENT PERSON, SENIOR SOFTWARE TESTER-C, AGACNP-BC, ENP-C Emergency Medicine Nuno Quijano C.N.P. [...] nonspecific. Jeaneth Earl P.A.-C. IMG DIAGNOSTIC IMAGING TEJAS DEULCA documented in this encounter Visit Diagnoses Diagnosis Injury Ankle Initial Right - Primary Sprain Ankle Initial Right documented in this encounter Additional Health Concerns Assessment Noted Time PHQ-9 Depression Total Score: 9 07/08/2020 3:59 PM DIRECTOR OF LEADERSHIP DEVELOPMENT documented as of this encounter Care Teams Bottler Helper Relationship Specialty Start Date End Date Alberto Locke M.D. PCP - General Family Medicine 04/27/19 documented as of this encounter
--- OUTSIDE RECORDS SUMMARY | 2022-07-29 08:23 | XMS_ITS | Clinical Summary ---
:1985 Author Organization [facility] Address [address] [place] [address] Care Team Providers Name Role Phone Alberto Locke M.D. Primary Care Provider Source Comments Patient records contain information from all sites at [facility]. For routine questions regarding patient records, call [phone] during business hours, M-F 8:00 AM - 5:00 PM Central Time. Record requests for emergency care only can be directed to [phone] at any time.[facility] Allergies Active Allergy Reactions Severity Noted [...] Added automatically from request for guillermina arreola [id number] Body Mass Index 60.0 To 69.9 Adult [...] Added automatically from request for guillermina arreola [id number] Hemorrhage Gastrointestinal 11/13/2017 02/18/2018 Pain Right Upper Quadrant 11/11/2017 04/20/2019 Melena 11/11/2017 02/18/2018 Overview: Added automatically from request for guillermina arreola [id number] Hypovolemic Shock 11/11/2017 02/18/2018 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 (Primar y Dx) 05/02/2022 Emergency [...] history exists Medical Devices Implanted Type Area Seasonal Package Handler Device Shelf Model / Identifier Expiration Serial / Date Lot Hardware E.G. Hardware Abdomen Pins/Screws/Ro e.g. ds pins/screws/ rods Description: Clamp for GI bleed Nexplanon-07/20/2018 Other/Legacy - See Arm 10/07/2020 / Implanted: 07/20/2018 by Leonora Reaves APRN, C.N.P. ( Quantity not on file) Implant Description / [id number] Procedures Procedure Name Priority Date/Time Associated Comments [...] Jeaneth Earl P.A.-C. IMG DIAGNOSTIC IMAGING PROCE [facility] US OB First Trimester and Transvaginal (05/13/2022 [...] Unknown, NGA: N/A INTRAUTERINE Pole: Not seen, Trommald-Rump Length: N/A Gestational Sac: Normal Yolk Sac: [...] Unknown, NGA: N/A INTRAUTERINE Pole: Not seen, Trommald-Rump Length: N/A Gestational Sac: Normal Yolk Sac: [...] M.D. OB GYNE ORDERABLES Performing Organization Address City/[facility] Phon e Number MMODAL MMODAL NA (ABNORMAL) [...] - GENE RAL ORDERABLES Performing Organization Address [facility] Phon e Number [facility]- [address] [place] [address] 39 [phone] [facility] [place] [address] System [address] (ABNORMAL) Urinalysis with Microscopic: (05/13/2022 12:30 [...] 8.0 05/13/2022 12:51 PM CDT RDWG Specific [place] >=1.030 1.001 - 1.035 05/13/2022 12:51 PM [...] Code Phon e Number [facility]- [address] [place], [place] [address] [address] [place] [address] System in [place] [address] (ABNORMAL) hCG (Human Chorionic Gonadotropin), Quantitative, (05/13/2022 12:07 PM CDT) Analysis Performed At Patho logist Time Signature HCG, [address] (H) <5 IU/L 05/13/2022 RDWG Quantitative, 1:11 PM CDT , P Specimen Anatomical Collection Method Collection Time Receive d Time (Source) Location / / Volume Laterality Blood (Blood, 05/13/2022 12:07 05/13/2022 Venous) PM CDT 12:21 PM CDT Rusty Guevara M.D. LAB BLOOD ADD-ON Performing Organization Address City/State/ZIP Code Phon e Number [facility]- [address] [place], [place] [address] [address] [place] [address] System in [place] [address] from Last 3 Months Insurance Payer Benefit Plan Subscriber ID Effective Dates Phone Address Type / Group [employer]ICA [facility] [id number] 2018-Tana [phone] [address] X [id number] PPO EMPLOYEE PLAN t [address] [id number] (Home) [place] [address] (Work) Advance Directives For more information, please contact: [phone] Latest Code Status on File Code Status [...] Due to: Not medically appropriate Care Teams Track Oiler Relationship Specialty Start Date End Date Alberto Locke M.D. PCP - General Family Medicine 04/27/19
--- OUTSIDE RECORDS SUMMARY | 2022-07-29 08:23 | XMS_ITS | Encounter Summary ---
:1985 Author Organization [facility] Address [address] [place] [address] Care Team Providers Name Role Phone Alberto Locke M.D. Primary Care Provider Reason for Visit Reason Comments Follow-up Encounter Details Date Type Department Care Team Description 05/13/2022 Clinical Communication Department of Nichole Ivey Follow-up Obstetrics and A, R.N. Gynecology in [address] [address] [place], [place] [phone] [address] (Work) [phone] Social History Tobacco Use Types Packs/Day Years [...] How often do you attend caodaism or hindu More than 4 time s [...] to pay for the very basics like [employer] hat hard 07/09/2020 food, housing, medical care, [...] and informed of plan. Patient transferred to operator receptionist to schedule. Warning signs for ectopic [...] + Susc, Urine (05/13/2022 12:30 PM CDT) [facility] gist Method Time Signature Urine Culture Mixed 05/14/2022 ECLR microbiota (A) 6:52 PM CDT Specimen Anatomical Collection Method Collection Time Receive d Time (Source) Location / / Volume Laterality Urine (Urine, 05/13/2022 12:30 05/13/2022 9:38 Midstream) PM CDT PM CDT Comment: Specimen Source Site: Urine Rusty Guevara M.D. LAB MICROBIOLOGY - GENE RAL ORDERABLES Performing Organization Address City/[facility]/ZIP Code Phon e Number [facility]- [address] [place] [address] 54 [address] [facility] [place] [address] System [address] (ABNORMAL) hCG (Human Chorionic Gonadotropin), Quantitative, (05/13/2022 12:07 PM CDT) Analysis Performed At Patho logist Time Signature HCG, [address] (H) <5 IU/L 05/13/2022 R[facility] Quantitative, 1:11 PM CDT , P Specimen Anatomical Collection Method Collection Time Receive d Time (Source) Location / / Volume Laterality Blood (Blood, 05/13/2022 12:07 05/13/2022 Venous) PM CDT 12:21 PM CDT Rusty Guevraa M.D. LAB BLOOD ADD-ON Performing Organization Address City/[facility] Code Phon e Number [facility]- [address] [place], [place] [address] [address] [place] [address] System in [place] [address] documented in this encounter Visit Diagnoses Diagnosis Surveillance Intrauterine Device - Prima ry Frequency Urinary documented in this encounter Additional Health Concerns Assessment Noted Time PHQ-9 Depression Total Score: 9 07/08/2020 3:59 PM CHIP UNLOADER documented as of this encounter Care Teams Credit Collection Specialist Relationship Specialty Start Date End Date Alberto Locke M.D. PCP - General Family Medicine 04/27/19 documented as of this encounter
--- OUTSIDE RECORDS SUMMARY | 2022-07-29 08:23 | XMS_ITS | Encounter Summary ---
:1985 Author Organization [facility] Address [address] [place] [address] Care Team Providers Name Role Phone Alberto Locke M.D. Primary Care Provider Reason for Referral Outpatient (Routine) - Authorized Specialty Diagnoses / Procedures Referred By Contact Refer red To Contact Orthopedic Surgery Nicolette Moise APRN, [facility] [place] [facility] C.N.P., D.N.P. [address] [place] [address] Referral ID Status Reason Start Date Expiration Date Visits V isits Requested Authorized [id number] Authorized 05/05/2022 05/04/2025 1 1 RI/CAT/PET Scan (Routine) - Pending Review Specialty Diagnoses / Procedures Referred By Contact Refer red To Contact Radiology Diagnoses Pain Knee Left Nicolette Moise APRN, [facility] [place] [facility] Procedures MR Knee Left without IV Contrast C.N.P., D.N.P. [address] [place] [address] Referral ID Status Reason Start Date Expiration Date Visits V isits Requested Authorized [id number] Pending 05/05/2022 05/05/2023 1 1 Review Encounter Details Date Type Department Care Team Description 05/05/2022 Orders Only Department of Nicolette Moise L, Pain Knee L eft Orthopedic Surgery in [place], (Prim shonna Dx) Caroline Toure D.N.P. [address] [place] [phone] Social History Tobacco Use Types Packs/Day [...] How often do you attend rastafarian or presybeterian More than 4 time s [...] Depression Total Score: 9 07/08/2020 3:59 PM FIRE CONTROL SYSTEM INSTALLER documented as of this encounter Care Teams Fisher Mussel Relationship Specialty Start Date End Date Alberto Locke M.D. PCP - General Family Medicine 04/27/19 documented as of this encounter
--- OUTSIDE RECORDS SUMMARY | 2022-07-29 08:23 | XMS_ITS | Encounter Summary ---
:1985 Author Organization [facility] Address [address] [place] [address] Care Team Providers Name Role Phone Alberto Locke M.D. Primary Care Provider Encounter Details Date Type Department Care Team Description 05/13/2022 Hospital Department of [place], Frequency Urin shonna Encounter Laboratory Rusty Santiago, Medicine in [address] [phone] [phone] Social History Tobacco Use Types Packs/Day Years [...] How often do you attend tenriism or oriental orthodox More than 4 time [...] (05/13/2022 12:30 PM CDT) Analysis Performed At [facility] Time Signature Source Urine, Urine, 05/13/2022 [...] 8.0 05/13/2022 12:51 PM CDT RDWG Specific [place] >=1.030 1.001 - 1.035 05/13/2022 12:51 PM [...] M.D. LAB URINE ORDERABLES Performing Organization Address City/[facility]/ZIP Code Phon e Number [facility]- [address] [place], [place] [address] [address] [place] [address] System in [place] [address] [place] (ABNORMAL) Bacterial Culture, Aerobic + Susc, Urine (05/13/2022 12:30 PM CDT) [facility] gist Method Time Signature Urine Culture Mixed 05/14/2022 ECLR microbiota (A) 6:52 PM CDT Specimen Anatomical Collection Method Collection Time Receive d Time (Source) Location / / Volume Laterality Urine (Urine, 05/13/2022 12:30 05/13/2022 9:38 Midstream) PM CDT PM CDT Comment: Specimen Source Site: Urine Rusty Guevara M.D. LAB MICROBIOLOGY - GENE RAL ORDERABLES Performing Organization Address City/[facility] Phon e Number [facility]- [address] [place] [address] [phone] [facility] [place] [address] System [address] documented in this encounter Visit Diagnoses Diagnosis Frequency Urinary documented in this encounter Additional Health Concerns Assessment Noted Time PHQ-9 Depression Total Score: 9 07/08/2020 3:59 PM BLOCKING MACHINE OPERATOR SECOND documented as of this encounter Care Teams Service Tech/Welder Relationship Specialty Start Date End Date Alberto Locke M.D. PCP - General Family Medicine 04/27/19 documented as of this encounter
--- OUTSIDE RECORDS SUMMARY | 2022-07-29 08:23 | XMS_ITS | Encounter Summary ---
:1985 Author Organization [facility] Address [address] [place] [address] Care Team Providers Name Role Phone Alberto Locke M.D. Primary Care Provider Reason for Referral Outpatient (Routine) - Authorized Specialty Diagnoses / Procedures Referred By Contact Refer red To Contact Diagnoses Surveillance Intrauterine Device Examination Test With Positive Result (HCC) Rusty Guevara [facility] Procedures IUD Removal M.Kelly [address] [place] [address] Referral ID Status Reason Start Date Expiration Date Visits V isits Requested Authorized [id number] Authorized 05/13/2022 05/13/2023 1 1 utpatient (Routine) - Authorized Specialty Diagnoses / Referred By Contact Referred To Procedures Contact Obstetrics and Rusty Guevara [facility] Gynecology Sera Santiago [address] [place] [address] Referral ID Status Reason Start Date Expiration Date Visits V isits Requested Authorized [id number] Authorized 05/13/2022 05/12/2025 1 1 Reason for Visit Reason Comments Follow-up Appointment Request (Routine) - Closed Specialty Diagnoses / Procedures Referred By Contact Refer red To Contact Obstetrics and Gynecology Referral ID Status Reason Start Date Expiration Date Visits Requ ested Visits Authorized [id number] Closed 05/13/2022 05/13/2023 1 Encounter Details Date Type Department Care Team Description 05/13/2022 Office Visit Department of [place], Not Reason For Visit (HCC) (Primary Dx); Obstetrics and Rusty Santiago M.D. Surveillance Intrauterine Device; Gynecology in [facility] [address] Infection Urinary Tract Acute; [place], [place] Examination Test W ith Positive Result (HCC) [address] [facility] [address] [place], [place] [phone] (Wo rk) [address] [phone] Social History Tobacco Use Types Packs/Day Years [...] How often do you attend jew or church More than 4 time s [...] 07/2020. She denies any abdominal pain. OBJECTIVE Leather Shaver- Taryn Ruiz HOUSING INSPECTORS VITAL SIGNS Blood Pressure: (139)/(71) 139/71 Weight: [...] PM Result Value HCG, Quantitative, , P [address] (H) Urinalysis with Microscopic: Collection Time: 05/13/22 12:30 PM Result Value Source Urine, Urine, Midstream Clarity Slightly Cloudy (A) Color Yellow Blood Large (A) Nitrite Negative Leukocyte Esterase Moderate (A) Protein Trace Glucose Negative Ketones, QI(U) Negative Bilirubin Negative pH 5.5 Specific [place] >=1.030 Urobilinogen 0.2 White Blood Cells 11-20 [...] for a repeat ultrasound to confirm viability. INTERVENTIONAL RADIOLOGY TECH documented in this encounter Plan of Treatment Scheduled Orders Name Type Priority Associated Order Schedule Diagnoses US OB First Trimester Imaging RAD - Routine (most No t Expected: and Transvaginal inpatients and all Reason For Visit 1 outpatients) ([facility]) (Approximate), Expires: 08/12/2023 Scheduled Referrals Name Type Priority Associated Order Schedule Diagnoses Obstetrics and Outpatient Referral Routine Expect ed: Gynecology office 05/27/2022 visit (clinic) (Approximate) , Expires: 08/12/2023 documented as of this encounter Procedures Procedure Name Priority Date/Time Associated Diagnosis Comme nts AK REMOVAL OF Routine 05/13/2022 1:15 PM Surveillance Results for this INTRAUTERINE DEVICE CDT Intrauterine Device procedure are in the results Examination Test section. With Positive Result (HCC) documented in this encounter Results AK REMOVAL OF INTRAUTERINE DEVICE (05/13/2022 1:15 PM [...] Depression Total Score: 9 07/08/2020 3:59 PM DEVOPS CONSULTANT documented as of this encounter Care Teams Supervisor Asphalt Paving Relationship Specialty Start Date End Date Alberto Locke M.D. PCP - General Family Medicine 04/27/19 documented as of this encounter
--- OUTSIDE RECORDS SUMMARY | 2022-07-29 08:23 | XMS_ITS | Encounter Summary ---
:1985 Author Organization [facility] Address [address] [place] [address] Care Team Providers Name Role Phone Alberto Locke M.D. Primary Care Provider Encounter Details Date Type Department Care Team Description 05/13/2022 Hospital Department of [place], Surveillance Encounter Laboratory [place]lu[place]milayo O, Intrauteri ne Device Medicine in [address] [address] [phone] Social History Tobacco Use Types Packs/Day Years [...] How often do you attend evangelical or moravian More than 4 time s [...] Performed At Patho logist Time Signature HCG, [address] (H) <5 IU/L 05/13/2022 RDWG Quantitative, 1:11 PM CDT , P Specimen Anatomical Collection Method Collection Time Receive d Time (Source) Location / / Volume Laterality Blood (Blood, 05/13/2022 12:07 05/13/2022 Venous) PM CDT 12:21 PM CDT Rusty Guevara M.D. LAB BLOOD ADD-ON Performing Organization Address City/State/ZIP Code Phon e Number [facility]- [address] [facility] [address] [place], [place] [address] [address] [place] [address] System in [place] [address] documented in this encounter Visit Diagnoses Diagnosis Surveillance Intrauterine Device documented in this encounter Additional Health Concerns Assessment Noted Time PHQ-9 Depression Total Score: 9 07/08/2020 3:59 PM DISPATCHER SERVICE OR WORK documented as of this encounter Care Teams Countersinker Balance Screw Hole Relationship Specialty Start Date End Date Alberto Locke M.D. PCP - General Family Medicine 04/27/19 documented as of this encounter
--- OUTSIDE RECORDS SUMMARY | 2022-07-29 08:23 | XMS_ITS | Encounter Summary ---
:1985 Author Organization [facility] Address [address] [place] [address] Care Team Providers Name Role Phone Alberto Locke M.D. Primary Care Provider Encounter Details Date Type Department Care Team Description 05/13/2022 Orders Only Department of [place], Surveillance Obstetrics and Rusty Santiago M.D. Intrauterine Device Gynecology in [facility] [address] (Primary Dx) [place] [address] [address] [place] [address] Social History Tobacco Use Types [...] Depression Total Score: 9 07/08/2020 3:59 PM WILLOW WORKER documented as of this encounter Care Teams Supervisor Park Workers Relationship Specialty Start Date End Date Alberto Locke M.D. PCP - General Family Medicine 04/27/19 documented as of this encounter
--- OUTSIDE RECORDS SUMMARY | 2022-07-29 08:23 | XMS_ITS | Encounter Summary ---
:1985 Author Organization [facility] Address [address] [place] [address] Care Team Providers Name Role Phone Alberto Locke M.D. Primary Care Provider Encounter Details Date Type Department Care Team Description 05/02/2022 Emergency [place] [facility] [place], Carlie Bronchitis (Primary Department A, TICKET SALES SUPERVISOR, C.N.P., Dx) [address] [place] [address] [address] [address] [place], [place] [phone] [address] (Wo rk) Social History Tobacco Use [...] How often do you attend voodoo or latter-day More than 4 time s [...] sent through Care Everywhere. Acute Bronchitis Adult Anay-sf-Noyp (Argentine)documented in this encounter Medications at Time of [...] Depression Total Score: 9 07/08/2020 3:59 PM AUCTION BLOCK CLERK documented as of this encounter Care Teams Grades 1 Thru 6 Visiting Teacher Relationship Specialty Start Date End Date Alberto Locke M.D. PCP - General Family Medicine 04/27/19 documented as of this encounter
--- OUTSIDE RECORDS SUMMARY | 2022-07-29 08:24 | XMS_ITS | Encounter Summary ---
:1985 Author Organization [facility] Address [address] [place] [address] Care Team Providers Name Role Phone Alberto [...] Type Department Care Team Description 02/21/2022 Emergency [place] [place], Infection Urinary Department Ray Mustafa M.D. Tract (Primary Dx) [address] [place], [place] [phone] (Wo rk) Social History Tobacco Use Types [...] How often do you attend denominational or oriental orthodox More than 4 time [...] through Care Everywhere. Urinary Tract Infection Adult (Guatemalan)documented in this encounter Medications at Time of [...] documented as of this encounter ED Notes aRy Early M.D. - 02/21/2022 1:39 AM CDT [...] 8.0 02/21/2022 3:44 AM CDT RDWG Specific [place] 1.022 1.001 - 1.035 02/21/2022 3:44 AM [...] Phon e Number [facility]- [address] [place] [address] [address] [place] [address] System in [address] Basic Metabolic Panel (02/21/2022 2:36 AM [...] CDT eGFR-Black/Afric >90 >=60 02/21/2022 RDWG an [place] mL/min/BSA 3:03 AM CDT Comment: ----ADDITIONAL INFORMATION---- [...] Phon e Number [facility] [place] [address] [address] [place] [address] System in [address] CBC with Differential, Blood (02/21/2022 [...] Phon e Number [facility]- [address] [place], [place] [address] [place] [address] System in [place] [address] (ABNORMAL) Blood Gas with Coox, Venous (02/21/2022 2:36 AM CDT) [facility] Method Time Signature Venous Sample [...] Phon e Number [facility]- [address] [place], [place] [address] [address] [place] [address] System in [place] [address] documented in this encounter Visit Diagnoses Diagnosis Infection Urinary Tract - Primary documented in this encounter Additional Health Concerns Assessment Noted Time PHQ-9 Depression Total Score: 9 07/08/2020 3:59 PM NATURAL RESOURCES EXTENSION EDUCATOR documented as of this encounter Care Teams Deicer Kit Assembler Relationship Specialty Start Date End Date Alberto Locke M.D. PCP - General Family Medicine 04/27/19 documented as of this encounter
--- OUTSIDE RECORDS SUMMARY | 2022-07-29 08:24 | XMS_ITS | Encounter Summary ---
:1985 Author Organization [facility] Address [address] [place] [address] Care Team Providers Name Role Phone Alberto Locke M.D. Primary Care Provider Reason for Referral Outpatient (Routine) - Authorized Specialty Diagnoses / Procedures Referred By Contact Refer red To Contact Diagnoses Edema Dyspnea On Exertion Shortness Of Breath Nichole [facility]. [facility] Region Procedures ECG 12 Lead [address] [place] [phone] Referral ID Status Reason Start Date Expiration Date Visits V isits Requested Authorized [id number] Authorized 11/04/2021 11/04/2022 1 1 Outpatient (Routine) - Closed Specialty Diagnoses / Procedures Referred By Contact Refer red To Contact Diagnoses Edema Dyspnea On Exertion Shortness Of Breath Nichole [facility]. [facility] Procedures DX Chest AP or PA and Lateral 2 Views [address] [place] [address] Referral ID Status Reason Start Date Expiration Date Visits Requ ested Visits Authorized [id number] Closed 11/04/2021 11/04/2022 1 1 Reason for Visit Reason Comments Edema Bilateral lower legs, with d izziness. Ongoing x several weeks Appointment Request (Routine) - Closed Specialty Diagnoses / Procedures Referred By Contact Refer red To Contact Family Medicine Referral ID Status Reason Start Date Expiration Date Visits Requ ested Visits Authorized [id number] Closed 11/04/2021 11/04/2022 1 1 Encounter Details Date Type Department Care Team Description 11/04/2021 Office Visit Department of Nichole Maria, Edema ( Primary Dx); Internal Medicine in M.D. Dyspnea On Exertion; [place], [place] [address] Shortness Of Breath; [address] [place], [place] Headache New; [place] [address] Apnea Sleep Obstructive [address] [phone] Social History Tobacco Use Types Packs/Day Years [...] How often do you attend baptism or uatsdin More than 4 time s [...] section within an hour of betting to [facility]. That was 3 years ago. [...] concerning arrhythmias or atypical ST segmentchanges or MS interval issues. CXR per my personal review, [...] and afebrile. Suspect benign. Conservative therapies with nvox-pyv-ftiujar meds, stretching, relaxation ensuring adequate hydration and [...] Signature Ventricular Rate 82 BPM MUSE ECG/Min MS Interval 146 ms MUSE QRSD Interval 74 ms MUSE QT Interval 360 ms MUSE QTC Interval 420 ms MUSE P [place] 49 degrees MUSE R [place] 55 degrees MUSE T Wave [place] 56 degrees MUSE Specimen Anatomical Collection Method [...] e Number [facility]- [address] [place], [place] [address] [address] [place] [address] System in [place] [address] hCG (Human Chorionic Gonadotropin), [...] Code Phon e Number [facility]- [address] [place], [place] [address] [address] [place] [address] System in [place] [address] [place] [address] T4 (Thyroxine), Free (11/04/2021 3:23 PM CDT) P athologist Signature T4 (Thyroxine), 1.3 0.9 - 1.7 11/04/2021 RDWG Free, P ng/dL 4:03 PM CDT Comment: Biotin has been identified by the doug saucedo as a potential interfering substance. ??Higher concentr ations of biotin may be found in multivitamins, hair/nail supple ments, and workout supplements. ??If the result does not [facility] clinical observations, repeat testing after patient refrains fr om the use of supplements for at least 12 hours. Specimen Anatomical Collection Method Collection Time Receive d Time (Source) Location / / Volume Laterality Blood (Blood, 11/04/2021 3:23 PM 11/05/19 3:29 Venous) CDT PM CDT Nichole Maria M.D. LAB BLOOD ADD-ON Performing Organization Address City/State/ZIP Code Phon e Number [facility]- [address] [place], [place] [address] [address] [place] [address] System in [place] [address] [place], [place] [address] S-TSH (Thyroid-Stimulating Hormone - Sensitive) (11/04/2021 3:23 [...] Code Phon e Number [facility]- [address] [place], [place] [address] [place] [address] System in [place] [address] [place] D-Dimer (11/04/2021 3:23 PM CDT) athologist Signature [...] Code Phon e Number [facility]- [address] [place], [place] [address] [place] [address] System in [place] [address] [place] Basic Metabolic Panel (11/04/2021 3:23 PM CDT) [...] CDT eGFR-Black/Afric >90 >=60 11/04/2021 RDWG an [place] mL/min/BSA 3:51 PM CDT Comment: ----ADDITIONAL INFORMATION---- [...] City/State/ZIP Code Phon e Number [facility]- [address] [place], [place] [address] [address] [place] [address] System in [place] [address] (ABNORMAL) CBC with Differential, [...] City/State/ZIP Code Phon e Number [facility]- [address] [place], [place] [address] [place], [place] [address] [address] [place] [address] System in [address] NT-Pro B-Type Natriuretic Peptide (BNP) (11/04/2021 3:23 [...] supplements. ??If the result does not [facility] clinical observations, repeat testing after patient refrains fr om the use of supplements for at least 12 hours. Specimen Anatomical Collection Method Collection Time Receive d Time (Source) Location / / Volume Laterality Blood (Blood, 11/04/2021 3:23 PM 11/05/19 3:29 Venous) CDT PM CDT Nichole Maria M.D. LAB BLOOD ADD-ON Performing Organization Address City/State/ZIP Code Phon e Number [facility]- [address] [place] [address] [address] [place] [address] System in [address] documented in this encounter Visit Diagnoses Diagnosis Edema - Primary Dyspnea On Exertion Shortness Of Breath Headache New Apnea Sleep Obstructive Edema Dyspnea On Exertion Shortness Of Breath documented in this encounter Additional Health Concerns Assessment Noted Time PHQ-9 Depression Total Score: 9 07/08/2020 3:59 PM THERAPIST'S ASSISTANT documented as of this encounter Care Teams Medical Information Specialist Relationship Specialty Start Date End Date Alberto Locke M.D. PCP - General Family Medicine 04/27/19 documented as of this encounter
--- OUTSIDE RECORDS SUMMARY | 2022-07-29 08:24 | XMS_ITS | Encounter Summary ---
:1985 Author Organization [facility] Address [address] [place] [address] Care Team Providers Name Role Phone Alberto Locke M.D. Primary Care Provider Reason for Referral Outpatient (Routine) - Authorized Specialty Diagnoses / Procedures Referred By Contact Refer red To Contact Family Medicine Diagnoses Diarrhea Pain Generalized Abdominal Nausea Alaina Stratton APRN [facility] C.N.P., D.N.P. [address] [place] [address] Referral ID Status Reason Start Date Expiration Date Visits V isits Requested Authorized [id number] Authorized 02/17/2022 02/17/2023 1 1 Reason for Visit Reason Comments Symptom Assessment Encounter Details Date Type Department Care Team Description 02/17/2022 Office Visit Department of Alaina Stratton Diarrhea (Pr imary Dx); Internal Medicine in JOSEFA Bustillos, C.N.P., [place]; [place], [place] D.N.P. Pain Generalized Abdominal; [address] Shortness Of Breath; [place], [place] Gastroesophagea l Reflux Disease Without Esophagitis [phone] Social History Tobacco Use Types Packs/Day Years [...] when she tries to eat. Recommended trying waeu-zqh-ljhqzqu Prilosec daily for up to 30 days. [...] Name Type Priority Associated Diagnoses Order S [facility] Medicine Outpatient Referral Routine Diarrhea Expected: [...] Panel, PCR, Feces (02/17/2022 7:48 PM CDT) [facility] Method Time Signature Specimen Source STOOL [...] using the FDA-cl eared FilmArray GI Panel ([employer] Specimen Anatomical Collection Method Collection Time Receive d Time (Source) Location / / Volume Laterality Stool (Stool) 02/17/2022 7:48 PM 02/18/20 7:48 CDT PM CDT Alaina Stratton APRN C.N.P., D.N.P. LAB MICROBIOLOGY - GENERAL ORDERABLES Performing Organization Address City/State/ZIP Code Phon e Number [facility]- [address] [place], [place] [address] [address] [place] [address] System in [place] Test, POCT, Urine (lab) (02/17/2022 [...] e Number [facility]- [address] [place], [place] [address] [address] [place] [address] System in [place] [address] [place] NT-Pro B-Type Natriuretic Peptide (BNP) (02/17/2022 6:38 [...] e Number [facility]- [address] [place], [place] [address] [address] [place] [address] System in [place] [address] [place] (ABNORMAL) CRP (C-Reactive Protein) (02/17/2022 6:38 PM CDT) athologist [facility] C-Reactive 21.7 (H) <=8.0 mg/L 02/17/2022 RDWG Protein (CRP), 7:10 PM CDT P Specimen Anatomical Collection Method Collection Time Receive d Time (Source) Location / / Volume Laterality Blood (Blood, 02/17/2022 6:38 PM 02/18/20 6:44 Venous) CDT PM CDT Marlyn Rosenberg APRN.N.P., D.N.P. LAB BLOOD ADD-ON Performing Organization Address City/[facility] Phon e Number [facility]- [address] [facility] [place], [place] [address] [address] [place] [address] System in [place] [address] [place] [address] Lipase (02/17/2022 6:38 PM CDT) athologist [facility] Lipase, P 22 13 - 60 U/L 02/17/2022 7:10 RDWG PM CDT Specimen Anatomical Collection Method Collection Time Receive d Time (Source) Location / / Volume Laterality Blood (Blood, 02/17/2022 6:38 PM 02/18/20 6:44 Venous) CDT PM CDT Marlyn Rosenberg APRN.N.P., D.N.P. LAB BLOOD ADD-ON Performing Organization Address City/[facility]/ZIP Code Phon e Number [facility]- [address] [facility] [place], [place] [address] [address] [place] [address] System in [place] [address] [place], [place] [address] Comprehensive Metabolic Panel (02/17/2022 6:38 PM CDT) [...] CDT eGFR-Black/Afric >90 >=60 02/17/[address] [place] mL/min/BSA 7:10 PM CDT Comment: ----ADDITIONAL INFORMATION---- [...] e Number [facility]- [address] [facility] [place] [address] [address] [place] [address] System in [place] 701 [facility] (ABNORMAL) CBC with Differential, Blood (02/17/2022 6:38 PM CDT) [facility] Method Time Signature Hemoglobin 15.5 (H) [...] e Number [facility]- [address] [place], [place] [address] [address] [place] [address] System in [place] [address] [place] documented in this encounter Visit Diagnoses Diagnosis Diarrhea - Primary Nausea Pain Generalized Abdominal Shortness Of Breath Gastroesophageal Reflux Disease Without Esophagitis documented in this encounter Additional Health Concerns Assessment Noted Time PHQ-9 Depression Total Score: 9 07/08/2020 3:59 PM ENGINEERING LIBRARIAN documented as of this encounter Care Teams Assisted Living Housekeeper Relationship Specialty Start Date End Date Alberto Locke M.D. PCP - General Family Medicine 04/27/19 documented as of this encounter
--- OUTSIDE RECORDS SUMMARY | 2022-07-29 08:24 | XMS_ITS | Encounter Summary ---
:1985 Author Organization [facility] Address [address] [place] [address] Care Team Providers Name Role Phone Alberto Locke M.D. Primary Care Provider Reason for Visit Reason Comments Results [facility] Encounter Details Date Type Department Care Team Description 01/18/2022 Clinical Communication Division of Tracy Wolf ([facility]) Community Internal Kimberli Purdy R.N. [facility] 200 [facility] [address] [place] [phone] 200 [facility] ([facility]) [place] [phone] Social History Tobacco Use Types Packs/Day Years [...] How often do you attend congregation or orthodox More than 4 time s [...] to pay for the very basics like [employer] hat hard 07/09/2020 food, housing, medical care, [...] 3:55 PM CDT [facility] TELEPHONE COMMUNICATION NOTE Block Saw Operator: None The patient was called regarding [...] your primary care provider or present [facility] for [facility]. Treatment Options Discussion [...] effects may happen. You would need to shredder picker and start the medication within 5 days of symptom onset, and you would take the medication twice a day for 5 days. You would need to have someone who is not in isolation or quarantine for COVID-19 shredder picker the prescription at a [facility] pharmacy. The medication is provided at [...] effects of the drug on milk production. [facility] advises that mothers should pump and [...] to decide.The patient was counselled to call [facility] at [phone] if they change their mind. Reviewed that [...] references were used: Nursing or Provider judgement, [facility], [facility] Protocols Kimberli Wolf R.N. [place] [facility] Care Team [facility] and [facility] Telephone Encounter - Kimberli Wolf R.N. [...] for: Paxlovid and Molnupiravir. Kimberli Wolf R.N. [place] [facility] Care Team and [place] [facility] Infusion Therapy Team [facility] and [facility] documented in this encounter Plan of Treatment Not on filedocumented as of this encounter Visit Diagnoses Not on filedocumented in this encounter Additional Health Concerns Infection Onset Date Last Indicated Resolved Time COVID19 01/16/2022 01/16/2022 02/05/2022 9:06 AM CDT Assessment Noted Time PHQ-9 Depression Total Score: 9 07/08/2020 3:59 PM GELATIN POWDER MIXER documented as of this encounter Care Teams Supersonic Engineer Relationship Specialty Start Date End Date Alberto Locke M.D. PCP - General Family Medicine 04/27/19 documented as of this encounter
--- OUTSIDE RECORDS SUMMARY | 2022-07-29 08:24 | XMS_ITS | Encounter Summary ---
:1985 Author Organization [facility] Address [address] [place] [address] Care Team Providers Name Role Phone Alberto Locke M.D. Primary Care Provider Reason for Visit Reason Comments Vomiting Diarrhea COVID Nurse Line Encounter Details Date Type Department Care Team Description 02/17/2022 Nurse Triage Department of [facility] Gina Su V omiting; Diarrhea; Medicine, [place] O, R.N. COVID Nurse Line Clinic, in [place], [address] [place] [address] [address] [facility] [address] [place] [address] Social History Tobacco Use Types [...] How often do you attend yazidi or adventist More than 4 time s [...] 3 days. Patient was warm transferred to [place] at the clinic for further assistance. Reason for Disposition ? ? [1] MILD vomiting with diarrhea AND [2] present > 5 days Protocols used: [id number] Care Advice Patient/Caregiver understands and will follow [...] Powerade). * Other options: 1/2 strength flat lemon-pitka's point soda or yenni stewart. * After 4 [...] RSV and Strep Select appropriate region: : [place] Are all of the following Strep criteria [...] frequently with soap and water, use hand special education paraprofessional if soap and water aren't available. -Wear [...] care: Yes The following references were used: [facility] novel coronavirus (COVID- 19) resources documented in this encounter Plan of Treatment Not on filedocumented as of this encounter Visit Diagnoses Not on filedocumented in this encounter Additional Health Concerns Assessment Noted Time PHQ-9 Depression Total Score: 9 07/08/2020 3:59 PM HEALTHCARE MANAGER documented as of this encounter Care Teams Mosaic Technician Relationship Specialty Start Date End Date Alberto Locke M.D. PCP - General Family Medicine 04/27/19 documented as of this encounter
--- OUTSIDE RECORDS SUMMARY | 2022-07-29 08:24 | XMS_ITS | Encounter Summary ---
:1985 Author Organization [facility] Address [address] [place] [address] Care Team Providers Name Role Phone Alberto Locke M.D. Primary Care Provider Reason for Referral Outpatient (Routine) - Closed Specialty Diagnoses / Procedures Referred By Contact Refer red To Contact Diagnoses Primary Osteoarthritis Knee Left Pain Knee Left Berny Robert [facility] [place] [facility] Procedures kvd-ialh-phqdwjyl-elbow arthrocentesis: L knee joint M.D. [address] [place] [address] Referral ID Status Reason Start Date Expiration Date Visits Requ ested Visits Authorized [id number] Closed 04/23/2021 04/23/2022 1 1 Physical Therapy (Routine) - Closed Specialty Diagnoses / Procedures Referred By Contact Refer red To Contact Diagnoses Pain Knee Left Primary Osteoarthritis Knee Left Primary Osteoarthritis Knee Right Body Mass Index 60.0 To 69.9 Adult ([facility]) Berny Robert [facility] [place] [facility] Procedures PT Evaluate and treat M.D. [address] [place] [address] Referral ID Status Reason Start Date Expiration Date Visits Requ ested Visits Authorized [id number] Closed 04/23/2021 04/23/2022 1 1 Reason for Visit Outpatient (Routine) - Closed Specialty Diagnoses / Procedures Referred By Contact Refer red To Contact Orthopedic Surgery Diagnoses Pain [facility]nee Left Suzanne Almodovar [facility] [place] [address] Referral ID Status Reason Start Date Expiration Date Visits Requ ested Visits Authorized [id number] Closed 04/14/2021 04/14/2022 1 1 Encounter Details Date Type Department Care Team Description 04/23/2021 Comprehensive Visit Department of Jakob, Primary Osteoarthritis Knee Left (Primary Dx); Orthopedic Surgery Malia Son Pain Knee Left; in [place] [facility] Primary Osteoarthritis Knee Right; [place], [place] Body Mass Index 60.0 To 69.9 Adult ([facility]) [address] [facility] [address] [place] [phone] [address] (Work) [phone] Social History Tobacco Use Types Packs/Day Years [...] M.D. - 04/23/2021 10:15 AM CDTAssociated Order(s): afn-hhts-pustiyuf-elbow arthrocentesis: L knee joint Post-Procedure Diagnose(s): Primary [...] SECTION; Surgeon: Xin De Leon M.D.; Location: [facility] ??? SECTION 04/12/2019 ??? ENDOSCOPIC RETROGRADE CHOLANGIOPANCREATOGRAPHY (ERCP) N/A 11/08/2017 Procedure: ENDOSCOPIC RETROGRADE CHOLANGIOPANCREATOGRAPHY; Surgeon: Rubio Baker M.D.; Location: [facility] ??? ESOPHAGOGASTRODUODENOSCOPY N/A 11/11/2017 Procedure: ESOPHAGOGASTRODUODENOSCOPY; Surgeon: Rubio Baker M.D.; Location: [facility] ??? LAPAROSCOPIC APPENDECTOMY N/A 09/08/2017 Procedure: LAPAROSCOPIC APPENDECTOMY; Surgeon: Edd Moeller D.O.; Location: [facility] ??? LAPAROSCOPIC CHOLECYSTECTOMY WITH CHOLANGIOGRAM N/A 03/03/2018 Procedure: LAPAROSCOPIC CHOLECYSTECTOMY POSSIBLE CHOLANGIOGRAM; Surgeon: Edd Moeller D.O.; Location: [facility] ??? OTHER CONVERTED SHX (SEE COMMENT) [...] Index 60.0 To 69.9 Adult ([facility]) Discussed diagnosis and natural history of osteoarthritis. Both surgical and conservative treatment options were discussed today, and recommendation was made for conservative treatment consisting of activity modifications, weight loss, pain management with NSAIDs and/or Tylenol, and intermittent intra-articular corticosteroid or viscosupplementation injections. After discussion, patient was in agreement with plan.She is going to take bmyi-otf-gjmsiav pain medications on an as-needed basis for pain control. She was provided with left knee intra- articular corticosteroid injection(s) in clinic today. She was also referred to formal physical therapy. She will return for follow-up on an as-needed basis. documented in this encounter Plan of Treatment Not on filedocumented as of this encounter Procedures Procedure Name Priority Date/Time Associated Diagnosis Comme nts OR ARTHCS ASP/INJ Routine 04/23/2021 10:41 Primary Osteoarthri tis Results for this MJR JT WO US AM CDT Knee Left procedure are in Pain Knee Left the results section. documented in this encounter Results OR ARTHCS ASP/INJ MJR JT WO US (04/23/2021 [...] Total Score: 9 07/08/2020 3:59 PM MANAGER FOOD SAFETY documented as of this encounter Care Teams Instrumentation And Controls Designer Relationship Specialty Start Date End Date Alberto Locke M.D. PCP - General Family Medicine 04/27/19 documented as of this encounter
--- OUTSIDE RECORDS SUMMARY | 2022-07-29 08:24 | XMS_ITS | Encounter Summary ---
:1985 Author Organization [facility] Address [address] [place] [address] Care Team Providers Name Role Phone Alberto Locke M.D. Primary Care Provider Encounter Details Date Type Department Care Team Description 01/16/2022 Admin Visit Department of [facility] Hays, [facility] [address] [place] [address] [address] [place] [phone] (Wo rk) Social History Tobacco Use Types [...] How often do you attend synagogue or tenriism More than 4 time s [...] to pay for the very basics like [employer] hat hard 07/09/2020 food, housing, medical care, [...] Depression Total Score: 9 07/08/2020 3:59 PM TRAIN CLERK documented as of this encounter Care Teams Film Sound Coordinator Relationship Specialty Start Date End Date Alberto Locke M.D. PCP - General Family Medicine 04/27/19 documented as of this encounter
--- OUTSIDE RECORDS SUMMARY | 2022-07-29 08:24 | XMS_ITS | Encounter Summary ---
:1985 Author Organization [facility] Address [address] [place] [address] Care Team Providers Name Role Phone Alberto Locke M.D. Primary Care Provider Reason for Visit Reason Comments Outpatient COVID-19 Testing Encounter Details Date Type Department Care Team Description 07/15/2021 Emergency [place] [facility] [address] [place] [address] [phone] Social History Tobacco Use Types [...] - - Pulse 101 07/15/2021 8:01 PM CLOTH FINISHING RANGE OPERATOR Temperature - - Respiratory Rate 18 07/15/2021 8:01 PM CLOTH FINISHING RANGE OPERATOR Oxygen Saturation 94% 07/15/2021 8:01 PM CLOTH FINISHING RANGE OPERATOR Inhaled Oxygen Concentration - - Weight - - Height - - Body Mass Index - - documented in this encounter Discharge Instructions Discharge InstructionsMichelle Kennedy R.N. - 07/15/2021 8:22 PM CST COVID-19 disease from Coronavirus is rapidly changing. We recognize the uncertainty you may feel at this time, and want to assure you that [facility] is committed to your health and safety. To stay informed, it is highly recommended you seek information from a website that has the most accurate and recent information such as the CDC: https://www.cdc.gov/coronavirus/2019-ncov/downloads/peqp-alvl-7787- gQfZ-tqam-ybguc.pdf [place] Messages from the CDC link above. [...] patients will be contacted by a [facility] provider. H FINISHING RANGE OPERATOR documented in this encounter Medications at Time [...] Result s for this COV-2, PCR, RAPID,V CLOTH FINISHING RANGE OPERATOR procedur e are in the results section. documented in this encounter Results Influenza A/B, SARS CoV-2, PCR, Rapid, Varies Symptomatic (07/15/2021 8:11 PM CLOTH FINISHING RANGE OPERATOR) [facility] Method Time Signature Influenza A, Negative Negative 07/15/2021 CNFL PCR, Rapid, V 8:38 PM CLOTH FINISHING RANGE OPERATOR Influenza B, Negative Negative 07/15/2021 CNFL PCR, Rapid, V 8:38 PM CLOTH FINISHING RANGE OPERATOR SARS CoV-2, Undetected Undetected 07/15/2021 CNFL PCR, Rapid, V 8:38 PM CLOTH FINISHING RANGE OPERATOR Comment: ----ADDITIONAL INFORMATION---- This RT-PCR test was performed using the Javy SARS-CoV-2 and Influenza A/B Reagent assay from [employer], which has received Emergency Use Authori zation(EUA) by the U.S. Food and Drug Administration . Fact sheets for this Emergency Use Autho rization (EUA) assay can be found at the following link s: For Healthcare Providers: https://www.fda.gov/media/689226/downloa d For Patients: https://www.fda.gov/media/321656/downloa d Infl A/B, SARS CoV-2, PCR, Source Swab, Nasopharynx 07/15/2021 8:38 PM CLOTH FINISHING RANGE OPERATOR CNFL Specimen Anatomical Collection Method Collection Time Receive d Time (Source) Location / / Volume Laterality Varies 07/15/2021 8:11 PM 8:17 (Nasopharynx) CLOTH FINISHING RANGE OPERATOR PM CLOTH FINISHING RANGE OPERATOR Cedric Bush P.A.-C. LAB MICROBIOLOGY - GENERAL O RDERABLES Performing Organization Address City/State/ZIP Code Phon e Number [facility]- [address] [place] [address] Blvd [place], [place] [id number] [place] [address] [place] [address] System [address] documented in this encounter Visit Diagnoses Not on filedocumented in this encounter Additional Health Concerns Infection Onset Date Last Indicated Resolved Time COVID19 Pending 07/15/2021 07/15/2021 07/15/2021 8:38 PM CLOTH FINISHING RANGE OPERATOR Assessment Noted Time PHQ-9 Depression Total Score: 9 07/08/2020 3:59 PM CLOTH FINISHING RANGE OPERATOR documented as of this encounter Care Teams Field Horticultural Specialty Grower Relationship Specialty Start Date End Date Alberto Locke M.D. PCP - General Family Medicine 04/27/19 documented as of this encounter
--- OUTSIDE RECORDS SUMMARY | 2022-07-29 08:24 | XMS_ITS | Encounter Summary ---
:1985 Author Organization [facility] Address [address] [place] [address] Care Team Providers Name Role Phone Alberto Locke M.D. Primary Care Provider Reason for Visit Reason Onset Date Comments Testing For Upper Respiratory Virus Symptoms 01/16/2022 Encounter Details Date Type Department Care Team Description 01/16/2022 External Outreach Department of [facility] Yamel Collins Contact With And (Suspected) Exposure To COVID-19; Medicine, Laura T, P.A.-C. Infection [facility], in [address] [address] [place], [place] [phone] [address] (Work) [phone] Social History Tobacco Use Types Packs/Day Years [...] How often do you attend anglican or mu-ism More than 4 time s [...] coordinate the care. For questions, contact the [facility] Covid Care Team ([facility]CT): Pager: [phone] In basket: P RST/[facility] COVID-19 POSITIVE Covid Care e-consult NOTE: At the time of testing, patients are instructed to obtain the result by calling the [employer] result line or by checking their online [...] RNA, V Symptomatic (01/16/2022 8:39 AM CDT) [facility] Method Time Signature SARS-CoV-2 Swab, 01/17/2022 ECLR Specimen Nasopharynx 8:57 PM CDT Source SARS CoV-2 Detected (A) Undetected 01/17/2022 ECLR RNA, TMA 8:57 PM CDT Comment: SARS-CoV-2 RNA present. ----ADDITIONAL INFORMATION---- This molecular amplification test was pe rformed using the Aptima SARS-CoV-2 assay ([employer] on the Flybitss tem under emergency use authorization (EUA) by the U.S. Food and Drug Administ ben. Fact sheets for this EUA assay can be fo und at the following links: For Healthcare Providers: https://www.fd a.gov/media/501094/download For Patients: https://www.fda.gov/media/ 226607/download Specimen Anatomical Collection Method Collection Time Receive d Time (Source) Location / / Volume Laterality Varies 01/16/2022 8:39 AM 4:18 (Nasopharynx) CDT PM CDT Venu Collins P.A.-C. LAB MICROBIOLOGY - GENERAL O BOBBY Performing Organization Address City/State/ZIP Code Phon e Number [facility]- [address] [place] [address] [phone] [facility] [place] [address] System [address] documented in this encounter Visit Diagnoses Diagnosis Contact With And (Suspected) Exposure To COVID-19 Infection Upper Respiratory documented in this encounter Additional Health Concerns Infection Onset Date Last Indicated Resolved Time COVID19 Pending 01/16/2022 01/16/2022 01/17/2022 8:58 PM CDT Assessment Noted Time PHQ-9 Depression Total Score: 9 07/08/2020 3:59 PM HOSPITAL PLAN ADMINISTRATOR documented as of this encounter Care Teams Agile Scrum Master Relationship Specialty Start Date End Date Alberto Locke M.D. PCP - General Family Medicine 04/27/19 documented as of this encounter
--- OUTSIDE RECORDS SUMMARY | 2022-07-29 08:24 | XMS_ITS | Encounter Summary ---
:1985 Author Organization [facility] Address [address] [place] [address] Care Team Providers Name Role Phone Alberto Locke M.D. Primary Care Provider Encounter Details Date Type Department Care Team Description 04/14/2021 Hospital Encounter Department of Suzanne Almodovar Pain Knee Left Radiology in [place], P.ABrittaney-Marlyn Quispe [address] [phone] Social History Tobacco Use Types Packs/Day Years [...] How often do you attend mormonism or confucianism More than 4 time s [...] Depression Total Score: 9 07/08/2020 3:59 PM FOOT DRILL OPERATOR documented as of this encounter Care Teams Senior Oracle Pl Sql Developer Relationship Specialty Start Date End Date Alberto Locke M.D. PCP - General Family Medicine 04/27/19 documented as of this encounter
--- OUTSIDE RECORDS SUMMARY | 2022-07-29 08:24 | XMS_ITS | Encounter Summary ---
:1985 Author Organization [facility] Address [address] [place] [address] Care Team Providers Name Role Phone Alberto Locke M.D. Primary Care Provider Reason for Visit Reason Comments Leg Swelling COVID Nurse Line Encounter Details Date Type Department Care Team Description 11/04/2021 Nurse Triage Department of [facility] Rylee Calvert, Leg Swe lling; [facility], [facility], in [place], [address] [place] [address] [place] [address] [place] [address] [phone] Social History Tobacco Use Types Packs/Day Years [...] to pay for the very basics like [employer] hat hard 07/09/2020 food, housing, medical care, [...] in office. Patient was warm transferred to [facility] at the clinic for further assistance. [...] frequently with soap and water, use hand instructional systems designer if soap and water aren't available. -Wear [...] care: Yes The following references were used: [facility] novel coronavirus (COVID- 19) resources Reason for Disposition ??? [1] Thigh, calf, or ankle swelling AND [2] bilateral AND [3] 1 side is more swollen Protocols used: LEG SWELLING AND ZAUDU-GPVGC-VT documented in this encounter Plan of Treatment Not on filedocumented as of this encounter Visit Diagnoses Not on filedocumented in this encounter Additional Health Concerns Assessment Noted Time PHQ-9 Depression Total Score: 9 07/08/2020 3:59 PM MEDICAL RECRUITER documented as of this encounter Care Teams Ditch Worker Relationship Specialty Start Date End Date Alberto Locke M.D. PCP - General Family Medicine 04/27/19 documented as of this encounter
--- OUTSIDE RECORDS SUMMARY | 2022-07-29 08:24 | XMS_ITS | Encounter Summary ---
:1985 Author Organization [facility] Address [address] [place] [address] Care Team Providers Name Role Phone Alberto Locke M.D. Primary Care Provider Reason for Visit Reason Comments Sore Throat Shortness of Breath Encounter Details Date Type Department Care Team Description 05/19/2021 Emergency [place] Emergency Berny Garcia, Tonsi llitis Acute Department M.DBrittaney (Primary Dx) 701 [facility] [address] [place] [address] [phone] (Wo rk) Social History Tobacco Use Types [...] How often do you attend uatsdin or zoroastrianism More than 4 time s [...] cannot be sent through Care Everywhere. Tonsillitis (Chinese)documented in this encounter Medications at Time of [...] Code Phon e Number [facility]- [address] [place] [phone] [place] [address] System in [place] [address] [place] [address] (ABNORMAL) Comprehensive Metabolic Panel (05/19/2021 9:45 PM [...] CDT eGFR-Black/Afri >90 >=60 05/19/2021 RDWG can Uzbek mL/min/BSA 10:20 PM CDT Comment: ----ADDITIONAL INFORMATION---- [...] Code Phon e Number [facility]- [address] [facility] [place] [address] [facility] [place] [address] System in [place] [address] (ABNORMAL) CBC with Differential, Blood (05/19/2021 9:45 PM CDT) [facility] Method Time Signature Hemoglobin 14.0 11.6 - [...] Code Phon e Number [facility]- [address] [place], [place] [address] [facility] [place] [address] System in [place] SARS Coronavirus-2 RNA, V (05/19/2021 [...] pe rformed using the Aptima SARS-CoV-2 assay ([employer] on the [employer] tem under emergency use authorization (EUA) by the U.S. Food and Drug Administ ration. Fact sheets for this EUA assay can be fo und at the following links: For Healthcare Providers: https://www.Little Borrowed Dress a.gov/media/384960/download For Patients: https://www.fda.gov/media/ 181243/download Specimen Anatomical Collection Method Collection Time Receive d Time (Source) Location / / Volume Laterality Varies 05/19/2021 9:44 PM CDT 11:00 AM CDT Berny Garcia M.D. LAB MICROBIOLOGY - GENERAL O RDERABLES Performing Organization Address City/State/ZIP Code Phon e Number [facility]- [address] [place] [place] [phone] [facility] [place] [place] [address] System in [address] Streptococcus Group A, Molecular Detection, PCR, [...] Code Phon e Number [facility]- [address] [place], [place] [address] [address] [place] [address] System in [place] [address] documented in this encounter Visit Diagnoses Diagnosis Tonsillitis Acute - Primary documented in this encounter Additional Health Concerns Infection Onset Date Last Indicated Resolved Time COVID19 Pending 05/19/2021 05/19/2021 05/19/2021 10:24 PM CDT COVID19 Pending 05/19/2021 05/19/2021 05/20/2021 3:13 PM CDT Assessment Noted Time PHQ-9 Depression Total Score: 9 07/08/2020 3:59 PM EARLY MORNING BABYSITTER documented as of this encounter Care Teams Drum Plater Relationship Specialty Start Date End Date Alberto Locke M.D. PCP - General Family Medicine 04/27/19 documented as of this encounter
--- OUTSIDE RECORDS SUMMARY | 2022-07-29 08:24 | XMS_ITS | Encounter Summary ---
:1985 Author Organization [facility] Address [address] [place] [address] Care Team Providers Name Role Phone Alberto Locke M.D. Primary Care Provider Reason for Visit Reason Comments Med Refill Encounter Details Date Type Department Care Team Description 05/05/2021 Refill Urgent Care in [place] M, Med Refill [place] [facility] 701 [facility] 701 [place] [address] [place] [address] [phone] (Wo rk) Social History Tobacco Use Types [...] How often do you attend yarsani or mu-ism More than 4 time s [...] Depression Total Score: 9 07/08/2020 3:59 PM BEAUTY SCHOOL INSTRUCTOR documented as of this encounter Care Teams Launderer Hand Relationship Specialty Start Date End Date Alberto Locke M.D. PCP - General Family Medicine 04/27/19 documented as of this encounter
--- OUTSIDE RECORDS SUMMARY | 2022-07-29 08:24 | XMS_ITS | Encounter Summary ---
:1985 Author Organization [facility] Address [address] [place] [address] Care Team Providers Name Role Phone Alberto Locke M.D. Primary Care Provider Reason for Visit Reason Comments Immunizations flu Encounter Details Date Type Department Care Team Description 07/11/2021 Clinical Support Department of Pediatrics Sa griffin Baxter, in [facility] L.P.N. 701 [facility] 701 [place] [address] [place], [place] [phone] Social History Tobacco Use Types Packs/Day Years [...] How often do you attend protestant or anabaptism More than 4 time s [...] Depression Total Score: 9 07/08/2020 3:59 PM FIRST DYER documented as of this encounter Care Teams Teacher Of The Sight Impaired Relationship Specialty Start Date End Date Alberto Locke M.D. PCP - General Family Medicine 04/27/19 documented as of this encounter
--- OUTSIDE RECORDS SUMMARY | 2022-07-29 08:24 | XMS_ITS | Encounter Summary ---
:1985 Author Organization [facility] Address [address] [place] [address] Care Team Providers Name Role Phone Alberto Locke M.D. Primary Care Provider Reason for Referral Outpatient (Routine) - Closed Specialty Diagnoses / Procedures Referred By Contact Refer marko To Contact Diagnoses Edema Dyspnea On Exertion Shortness Of Breath Nichole Maria M.D. [facility] [place] [facility] Procedures DX Chest AP or PA and Lateral 2 Views [facility] [address] Referral ID Status Reason Start Date Expiration Date Visits Requ ested Visits Authorized [id number] Closed 11/04/2021 11/04/2022 1 1 Reason for Visit Outpatient (Routine) - Closed Specialty Diagnoses / Procedures Referred By Contact Refer marko To Contact Diagnoses Edema Dyspnea On Exertion Shortness Of Breath Nichole Maria M.D. [facility] [place] [facility] Procedures DX Chest AP or PA and Lateral 2 Views 244 [place] [address] Referral ID Status Reason Start Date Expiration Date Visits Requ ested Visits Authorized [id number] Closed 11/04/2021 11/04/2022 1 1 Encounter Details Date Type Department Care Team Description 11/04/2021 Hospital Encounter Department of Nichole Maria; Radiology in Marko Barrett M.D. Dyspnea On Exertion; [place] [address] Dennisj carlos Shortness Of Breath [address] [place] [phone] Social History Tobacco Use Types Packs/Day [...] How often do you attend orthodoxy or episcopalian More than 4 time s [...] d isease. Nichole CH DIAGNOSTIC IMAGING PROCE DURATA documented in this encounter Visit Diagnoses Diagnosis Edema Dyspnea On Exertion Shortness Of Breath documented in this encounter Additional Health Concerns Assessment Noted Time PHQ-9 Depression Total Score: 9 07/08/2020 3:59 PM SWEATBAND MAKER documented as of this encounter Care Teams Cover Stripper Relationship Specialty Start Date End Date Alberto Locke M.D. PCP - General Family Medicine 04/27/19 documented as of this encounter
--- OUTSIDE RECORDS SUMMARY | 2022-07-29 08:24 | XMS_ITS | Encounter Summary ---
:1985 Author Organization [facility] Address [address] [place] [address] Care Team Providers Name Role Phone Alberto Locke M.D. Primary Care Provider Encounter Details Date Type Department Care Team Description 07/15/2021 Orders Only [facility] Frankie Locke M.D. [address] [place] [address] (Wo rk) Social History Tobacco Use Types [...] How often do you attend yazdanism or moravian More than 4 time s [...] Depression Total Score: 9 07/08/2020 3:59 PM REMOTE SENSING TECHNICIAN documented as of this encounter Care Teams Run Lead Relationship Specialty Start Date End Date Alberto Locke M.D. PCP - General Family Medicine 04/27/19 documented as of this encounter
--- OUTSIDE RECORDS SUMMARY | 2022-07-29 08:24 | XMS_ITS | Encounter Summary ---
:1985 Author Organization [facility] Address [address] [place] [address] Care Team Providers Name Role Phone Alberto Locke M.D. Primary Care Provider Encounter Details Date Type Department Care Team Description 02/25/2022 Orders Only [facility] PCP [facility] Sa emma Lemos M.D. Screening Lipid [address] [place] [phone] (Wo rk) Social History Tobacco Use Types [...] How often do you attend baptist or adventist More than 4 time s [...] Depression Total Score: 9 07/08/2020 3:59 PM INTEGRATION ARCHITECT documented as of this encounter Care Teams Radiologist Physician Relationship Specialty Start Date End Date Alberto Locke M.D. PCP - General Family Medicine 04/27/19 documented as of this encounter
--- OUTSIDE RECORDS SUMMARY | 2022-07-29 08:24 | XMS_ITS | Encounter Summary ---
:1985 Author Organization [facility] Address [address] [place] [address] Care Team Providers Name Role Phone Alberto Locke M.D. Primary Care Provider Reason for Referral Outpatient (Routine) - Closed Specialty Diagnoses / Procedures Referred By Contact Refer janell To Contact Orthopedic Surgery Diagnoses Pain Knee Left Suzanne Almodovar [facility] P.A.-C. [address] [place] [address] Referral ID Status Reason Start Date Expiration Date Visits Requ ested Visits Authorized [id number] Closed 04/14/2021 04/14/2022 1 1 Scheduling Instructions Ortho internal referral panel order, bobbi ging before Consult visit Reason for Visit Reason Comments Leg Pain Left Appointment Request (Routine) - Closed Specialty Diagnoses / Procedures Referred By Contact Refer janell To Contact Family Medicine Referral ID Status Reason Start Date Expiration Date Visits Requ ested Visits Authorized [id number] Closed 04/14/2021 04/14/2022 1 1 Encounter Details Date Type Department Care Team Description 04/14/2021 Office Visit Urgent Care in [facility] Suzanne Almodovar Pain Knee Left [place], [place] Nena, P.A.-C. (Primary Dx) 701 [facility] 701 [place], [place] [phone] Social History Tobacco Use Types Packs/Day [...] biking or low impact water aerobics. ?? Fhdz-tyx-ugbdcwz and prescription medications. Your health care provider may recommend uhkj-xmz-gkjtztr medications and prescribe medications to help with [...] with your health care provider. ? 2014 [employer] ([employer]). All rights reserved. [id number] documented in this encounter Progress Notes Suzanne [...] Depression Total Score: 9 07/08/2020 3:59 PM DEVELOPER EVANGELIST documented as of this encounter Care Teams Chainstitch Hemmer Relationship Specialty Start Date End Date Alberto Locke M.D. PCP - General Family Medicine 04/27/19 documented as of this encounter
--- OUTSIDE RECORDS SUMMARY | 2022-07-29 08:24 | XMS_ITS | Encounter Summary ---
:1985 Author Organization [facility] Address [address] [place] [address] Care Team Providers Name Role Phone Alberto Locke M.D. Primary Care Provider Encounter Details Date Type Department Care Team Description 05/01/2021 Clinical Communication Department of [facility] Alberto Fregoso M.D. [address], in [phone] [place] [address] (Wo rk) [phone] [phone] Social History Tobacco Use Types Packs/Day Years [...] How often do you attend yazidi or buddhism More than 4 time s [...] to pay for the very basics like [employer] hat hard 07/09/2020 food, housing, medical care, [...] the phone between 7 am-6 pm, Wednesday-Wednesday. [place]: [phone] [place]: [phone] [place]: [phone] [place] [employer]: [phone] [place]: [phone] [place]: [phone] [facility]: [phone] Stephen [place], [place], or [facility]: [phone] [place]:[phone] [place]: [phone] Thank you for trusting your health care to [facility]. documented in this encounter Plan of Treatment Not on filedocumented as of this encounter Visit Diagnoses Not on filedocumented in this encounter Additional Health Concerns Assessment Noted Time PHQ-9 Depression Total Score: 9 07/08/2020 3:59 PM SYNOPTIC METEOROLOGIST documented as of this encounter Care Teams Timing Adjuster Relationship Specialty Start Date End Date Alberto Locke M.D. PCP - General Family Medicine 04/27/19 documented as of this encounter
--- OUTSIDE RECORDS SUMMARY | 2022-07-29 08:24 | XMS_ITS | Encounter Summary ---
:1985 Author Organization [facility] Address [address] [place] [address] Care Team Providers Name Role Phone Alberto Locke M.D. Primary Care Provider Encounter Details Date Type Department Care Team Description 05/12/2021 Clinical Communication Department of [facility] Alberto Fregoso M.D. [address], in [phone] [place] [address] (Wo rk) [address] [phone] Social History Tobacco Use Types Packs/Day Years [...] How often do you attend mormonism or sikhism More than 4 time s [...] to pay for the very basics like [employer] hat hard 07/09/2020 food, housing, medical care, [...] COVID19 Pending 07/15/2021 07/15/2021 07/15/2021 8:38 PM FAN MAIL CLERK Assessment Noted Time PHQ-9 Depression Total Score: 9 07/08/2020 3:59 PM FAN MAIL CLERK documented as of this encounter Care Teams Statistical Consultant Relationship Specialty Start Date End Date Alberto Locke M.D. PCP - General Family Medicine 04/27/19 documented as of this encounter
--- OUTSIDE RECORDS SUMMARY | 2022-07-29 08:25 | XMS_ITS | Encounter Summary ---
:1985 Author Organization [facility] Address [address] [place] [address] Care Team Providers Name Role Phone Alberto Locke M.D. Primary Care Provider Encounter Details Date Type Department Care Team Description 07/08/2020 Admin Visit Department of Family Medicine, [facility] in [place], [place] [address] [place] [address] Social History Tobacco Use Types Packs/Day Years [...] How often do you attend yazdanism or episcopalian More than 4 time s [...] COVID19 Pending 07/08/2020 07/08/2020 07/09/2020 5:11 AM HAND FINISHER Assessment Noted Time PHQ-9 Depression Total Score: 9 07/08/2020 3:59 PM HAND FINISHER documented as of this encounter Care Teams Manager Treasury Relationship Specialty Start Date End Date Alberto Locke M.D. PCP - General Family Medicine 04/27/19 documented as of this encounter
--- OUTSIDE RECORDS SUMMARY | 2022-07-29 08:25 | XMS_ITS | Encounter Summary ---
:1985 Author Organization [facility] Address [address] [place] [address] Care Team Providers Name Role Phone Alberto Locke M.D. Primary Care Provider Encounter Details Date Type Department Care Team Description 06/16/2019 Clinical Communication Department of [facility] Alberto Fregoso M.D. [address], in [id number] [place] [address] (Wo rk) [address] [phone] Social History Tobacco Use Types Packs/Day Years [...] How often do you attend religious or sabianist More than 4 time s [...] Jayshree HAWKINS. Please return her call at [phone]. documented in this encounter Plan of Treatment Not on filedocumented as of this encounter Visit Diagnoses Not on filedocumented in this encounter Additional Health Concerns Assessment Noted Time PHQ-9 Depression Total Score: 3 05/30/2019 10:59 AM CD T documented as of this encounter Care Teams Health Inspector Food Relationship Specialty Start Date End Date Alberto Locke M.D. PCP - General Family Medicine 04/27/19 documented as of this encounter
--- OUTSIDE RECORDS SUMMARY | 2022-07-29 08:25 | XMS_ITS | Encounter Summary ---
:1985 Author Organization [facility] Address [address] [place] [address] Care Team Providers Name Role Phone Alberto Locke M.D. Primary Care Provider Reason for Referral Outpatient (Routine) - Closed Specialty Diagnoses / Procedures Referred By Contact Refer red To Contact Tammie Snyder APRN, C.NJud, M [facility] NEHEMIAH Kent M.S.N. [address] [place] [phone] Referral ID Status Reason Start Date Expiration Date Visits Requ ested Visits Authorized [id number] Closed 07/09/2020 07/09/2021 1 1 Scheduling Instructions At [facility] ([facility]) ONLY. Please schedule as soon as possible within the next 24-48 hours. SERVER Reason for Visit Appointment Request (Routine) - Closed Specialty Diagnoses / Procedures Referred By Contact Refer red To Contact Express or Urgent Care Referral ID Status Reason Start Date Expiration Date Visits Requ ested Visits Authorized [id number] Closed 07/09/2020 07/09/2021 1 1 Encounter Details Date Type Department Care Team Description 07/09/2020 Telemedicine [facility] Tammie Can Phar yngitis Acute Care at [facility] JOSEFA C.N.PBrittaney, (Primary Dx) [address] CUMMINGS M.S.NBrittaney [place], [place] [address] [place] [phone] [place], [place] [phone] Social History Tobacco Use Types Packs/Day Years [...] often do you attend latter day or confucianist More than 4 time s [...] or coughing. ?? Use an alcohol-based hand membership coordinator if washing your hands with soap and [...] with your health care provider. ? 2013 [employer] ([facility]). All rights reserved. [id number] SERVER documented in this encounter Progress Notes Tammie Snyder APRN, C.N.P., M.S.N. - 07/09/2020 11:20 AM CST CHIEF COMPLAINT Sore throat x 1 week Consult conducted via real-time audio/video technology by Tammie Snyder APRN C.N.PBrittaney in [facility] patient in their home. Visit was [...] exposure however the patient does work in the[employer] Department in [place]. She wears appropriate personal protective equipment while [...] strep swab to be completed at the [facility] via nurse only visit. Treat per protocol. If strep screen positive, a prescription for Penicillin V Potassium 500 mg PO, every 12 hours for 10days, tablet, will be sent to [facility] in [place]. Strep pharyngitis considered contagious until treated for [...] with primary care provider. Patient has a [facility] online portal account, can view medication list electronically. Ready to learn, no apparent learning barriers were identified; learning preferences include listening. Explained diagnosis and treatment plan; patient/child/caregiver expressed understanding of the content. SERVER documented in this encounter Plan of Treatment [...] Depression Total Score: 9 07/08/2020 3:59 PM TRAY SERVER documented as of this encounter Care Teams Casting Repairer Relationship Specialty Start Date End Date Alberto Locke M.D. PCP - General Family Medicine 04/27/19 documented as of this encounter
--- OUTSIDE RECORDS SUMMARY | 2022-07-29 08:25 | XMS_ITS | Encounter Summary ---
:1985 Author Organization [facility] Address [address] [place] [address] Care Team Providers Name Role Phone Alberto Locke M.D. Primary Care Provider Encounter Details Date Type Department Care Team Description 11/22/2020 Orders Only [facility] SEMN PCP TH Sa emma Lemos M.D. [address] [place], [place] [phone] (Wo rk) Social History Tobacco Use Types [...] How often do you attend gnosticist or roman catholic More than 4 time [...] Depression Total Score: 9 07/08/2020 3:59 PM SERVICENOW ADMINISTRATOR DEVELOPER documented as of this encounter Care Teams Fire Extinguisher Sprinkler Inspector Relationship Specialty Start Date End Date Alberto Locke M.D. PCP - General Family Medicine 04/27/19 documented as of this encounter
--- OUTSIDE RECORDS SUMMARY | 2022-07-29 08:25 | XMS_ITS | Encounter Summary ---
:1985 Author Organization [facility] Address [address] [place] [address] Care Team Providers Name Role Phone Alberto Locke M.D. Primary Care Provider Encounter Details Date Type Department Care Team Description 07/03/2019 Orders Only Department of Family Alberto Locke M.D. [facility] [address] [place] [address] Dr Mustafa [facility], in [place], [place] [phone] [place] [address] [place] [address] [place] [address] Social History Tobacco Use Types Packs/Day [...] How often do you attend christianity or presybeterian More than 4 time s [...] as of this encounter Care Teams Check Airman Relationship Specialty Start Date End Date Alberto Locke M.D. PCP - General Family Medicine 04/27/19 documented as of this encounter
--- OUTSIDE RECORDS SUMMARY | 2022-07-29 08:25 | XMS_ITS | Encounter Summary ---
:1985 Author Organization [facility] Address [address] [place] [address] Care Team Providers Name Role Phone Alberto Locke M.D. Primary Care Provider Encounter Details Date Type Department Care Team Description 03/12/2020 Orders Only [facility] PCP [facility] MNT Alberto Locke M. D. [address] [place] [address] (Wo rk) Social [...] How often do you attend christian or restorationism More than 4 time s [...] documented as of this encounter Care Teams Law Enforcement Director Relationship Specialty Start Date End Date Alberto Locke M.D. PCP - General Family Medicine 04/27/19 documented as of this encounter
--- OUTSIDE RECORDS SUMMARY | 2022-07-29 08:25 | XMS_ITS | Encounter Summary ---
:1985 Author Organization [facility] Address [address] [place] [address] Care Team Providers Name Role Phone Alberto Locke M.D. Primary Care Provider Reason for Referral Outpatient (Routine) - Closed Specialty Diagnoses / Procedures Referred By Contact Refer red To Contact Family [facility] [address] Mustafa [place], [place] [address] Referral ID Status Reason Start Date Expiration Date Visits Requ ested Visits Authorized [id number] Closed 05/31/2019 05/30/2020 1 1 Scheduling Instructions Dep Reason for Visit Reason Comments Care Recheck anemia Outpatient (Routine) - Closed Specialty Diagnoses / Procedures Referred By Contact Refer red To Contact Family [facility]to Hercules M.D. [facility] [address] Mustafa [place], [place] [address] Referral ID Status Reason Start Date Expiration Date Visits Requ ested Visits Authorized [id number] Closed 04/27/2019 04/26/2020 1 1 Encounter Details Date Type Department Care Team Description 05/31/2019 Office Visit Department of Alberto Campbell M.D. Anemia (HCC) (Prima ry Dx); [address] Mustafa Depression Major Recurrent (HCC) Clinic, in [facility] [address] [place] [address] [place] [address] Social History Tobacco Use Types [...] How often do you attend caodaism or taoist More than 4 time s [...] ??? Section Delivery ([facility]) ??? Anemia ([facility]) Current Outpatient Medications Medication Sig ??? buPROPion [...] week Gets together: Once a week Attends taoist service: 1 to 4 times per year [...] SECTION; Surgeon: Xin De Leon M.D.; Location: [facility] OR ??? ENDOSCOPIC RETROGRADE CHOLANGIOPANCREATOGRAPHY (ERCP) N/A 11/08/2017 Procedure: ENDOSCOPIC RETROGRADE CHOLANGIOPANCREATOGRAPHY; Surgeon: Rubio Baker M.D.; Location: [facility] OR ??? ESOPHAGOGASTRODUODENOSCOPY N/A 11/11/2017 Procedure: ESOPHAGOGASTRODUODENOSCOPY; Surgeon: Rubio Baker M.D.; Location: [facility] GI LAB ??? LAPAROSCOPIC APPENDECTOMY N/A 09/08/2017 Procedure: LAPAROSCOPIC APPENDECTOMY; Surgeon: Edd Moeller D.O.; Location: [facility] OR ??? LAPAROSCOPIC CHOLECYSTECTOMY WITH CHOLANGIOGRAM N/A 03/03/2018 Procedure: LAPAROSCOPIC CHOLECYSTECTOMY POSSIBLE CHOLANGIOGRAM; Surgeon: Edd Moeller D.O.; Location: [facility] OR ??? OTHER CONVERTED SHX [...] visit (clinic) Nov 30, 2019 (Approximate) Region: [facility] Region Provider needed?: Self Visit length: Long Visit type: General Dep documented in this encounter Plan of Treatment Scheduled Referrals Name Type Priority Associated Diagnoses Order S [facility] Family Medicine Outpatient Referral Routine Expec pipe: office visit 11/30/2019 (clinic) (Approximate), Expires: 05/31/2022 documented as of this encounter Visit Diagnoses Diagnosis Anemia (HCC) - Prim shonna Depression Major Recurrent (HCC) documented in this encounter Additional Health Concerns Assessment Noted Time PHQ-9 Depression Total Score: 3 05/30/2019 10:59 AM CD T documented as of this encounter Care Teams Service Counter Cashier Relationship Specialty Start Date End Date Alberto Locke M.D. PCP - General Family Medicine 04/27/19 documented as of this encounter
--- OUTSIDE RECORDS SUMMARY | 2022-07-29 08:25 | XMS_ITS | Encounter Summary ---
:[address] [facility] Address [address] [place] [address] Care Team Providers Name Role Phone Alberto Locke M.D. Primary Care Provider Reason for Visit Reason Comments Leg Pain lower right leg,red,swollen, ,alittle painful,for few weeks Outpatient (Routine) - Closed Specialty Diagnoses / Procedures Referred By Contact Refer red To Contact Family Medicine Alberto Locke M.D. [address] Moon [place] [address] Referral ID Status Reason Start Date Expiration Date Visits Requ ested Visits Authorized [id number] Closed 12/06/2019 12/05/2020 1 1 Encounter Details Date Type Department Care Team Description 12/06/2019 Office Visit Department of Alberto Campbell M.D. [address] [place] [address] Dr Moon [place] [phone] Pain Lower Leg Right (Primary Dx); Medicine, [place] Nuno Beck M.D. [address] [place] [phone] Swelling Leg Right; Clinic, in [place], Pain Ne ck; [place] Depression Major Recurrent ( HCC); [address] [place], [place] [address] Body Mass Index 50.0 To 59.9 Adult (HCC); [place] [phone] Social History Tobacco [...] few weeks HISTORY OF PRESENT ILLNESS Carol Cooley presents for recheck. He had a [...] symptoms she should be seen in a [id number]-pn-nvarigofz to rule out DVT. No fever, chills, [...] of these at a local store or [employer] 2. Episodic neck pain with radiation down [...] calm down and physical therapy is seenpeople toym-wa-jalm and then can request a referral at [...] as of this encounter Care Teams Public Health Nutritionist Relationship Specialty Start Date End Date Alberto Locke M.D. PCP - General Family Medicine 04/27/19 documented as of this encounter
--- OUTSIDE RECORDS SUMMARY | 2022-07-29 08:25 | XMS_ITS | Encounter Summary ---
:1985 Author Organization [facility] Address [address] [place] [address] Care Team Providers Name Role Phone Alberto Locke M.D. Primary Care Provider Reason for Referral Outpatient (Routine) - Closed Specialty Diagnoses / Procedures Referred By Contact Refer red To Contact Family Alberto Hercules M.D. [facility] [address] [place], [place] [address] Referral ID Status Reason Start Date Expiration Date Visits Requ ested Visits Authorized [id number] Closed 12/06/2019 12/05/2020 1 1 Scheduling Instructions Face to face or virtual depending on COV ID restrictions at that time ehavioral Health (Routine) - Closed Specialty Diagnoses / Procedures Referred By Contact Refer red To Contact Psychiatry / Diagnoses Depression Major Recurrent (HCC) Alberto Locke M.D. [facility] and [address] [place] [address] [place] [address] Referral ID Status Reason Start Date Expiration Date Visits Requ ested Visits Authorized [id number] Closed 12/06/2019 12/05/2020 1 1 utpatient (Routine) - Closed Specialty Diagnoses / Procedures Referred By Contact Refer red To Contact Family Alberto Hercules M.D. [facility] [address] [place], [place] [address] Referral ID Status Reason Start Date Expiration Date Visits Requ ested Visits Authorized [id number] Closed 12/06/2019 12/05/2020 1 1 Scheduling Instructions Face to face family med but must do COVI D triage clearance first Reason for Visit Reason Comments Follow-up ? lab -hgb Outpatient (Routine) - Closed Specialty Diagnoses / Procedures Referred By Contact Refer red To Contact Family Medicine Alberto Locke M.D. [address] Mustafa [place], [place] [address] Referral ID Status Reason Start Date Expiration Date Visits Requ ested Visits Authorized [id number] Closed 05/31/2019 05/30/2020 1 1 Encounter Details Date Type Department Care Team Description 12/06/2019 Virtual Visit Department of Family Alberto Locke M.D. Depression Major Recurrent (HCC) (Primar y Dx); [facility], [address] Mustafa Edema Ankle Right Clinic, in [facility] [address] [place] [address] [place] [address] Social History Tobacco Use Types [...] How often do you attend adventist or latter day More than 4 time [...] Depression Major Recurrent ([facility]) Current Outpatient Medications [...] week Gets together: Once a week Attends latter day service: 1 to 4 times per year [...] I will refer her semi urgently to [facility] social work #2 Edema Ankle Right Due to asymmetrical nature of this LE edema she will need to be seen face to face in [facility] med today I will have her talk to COVID triage nurse to clear her before she can schedule for visit with F doc today. She appears to have no COVID symptoms or risk on my assessment. If she is recommended to need COVID screening she may need to be seen in ER to rule out DVT. Follow up in 1 month(s) Consults and Follow-ups to Schedule Family Medicine office visit (clinic) Dec 06, 2019 Region: [facility] Region Provider needed?: Other Provider Specific provider: [...] ok Region: [facility] Region Visit type: Social Work [...] (Approximate) Region: [facility] Region Provider needed?: Self Visit [...] documented as of this encounter Care Teams Unemployment Specialist Relationship Specialty Start Date End Date Alberto Locke M.D. PCP - General Family Medicine 04/27/19 documented as of this encounter
--- OUTSIDE RECORDS SUMMARY | 2022-07-29 08:25 | XMS_ITS | Encounter Summary ---
:1985 Author Organization [facility] Address [address] [place] [address] Care Team Providers Name Role Phone Alberto Locke M.D. Primary Care Provider Reason for Visit Reason Onset Date Comments Outpatient COVID-19 Testing 07/08/2020 Encounter Details Date Type Department Care Team Description 07/08/2020 External Outreach Department of Yamel Sandoval Infection Upper Medicine, [place] Marcio SanchezARaiv Respiratory (Primary Clinic, in [place], [address] Dx) [place], [place] [address] [address] [place], [place] [phone] [address] (Work) [phone] Social History Tobacco Use Types Packs/Day Years [...] often do you attend oriental orthodox or mosque More than 4 time [...] Encounter created for the drive-through COVID-19 testing. RVISOR ORCHARD documented in this encounter Plan of Treatment Not on filedocumented as of this encounter Procedures Procedure Name Priority Date/Time Associated Diagnosis Comme nts SARS CORONAVIRUS-2 Routine 07/08/2020 1:34 PM Infection Upper Results for this RNA, V SUPERVISOR ORCHARD Respiratory procedure are i n the results section. documented in this encounter Results SARS Coronavirus-2 RNA, V Symptomatic (07/08/2020 1:34 PM SUPERVISOR ORCHARD) [facility] Method Time Signature SARS-CoV-2 Swab, 07/09/2020 E[facility] Specimen Nasopharynx 5:11 AM SUPERVISOR ORCHARD Source SARS CoV-2 Undetected Undetected 07/09/2020 E[facility] RNA, TMA 5:11 AM SUPERVISOR ORCHARD Comment: SARS-CoV-2 RNA absent. This result does not rule out COVID-19 in the patient, as the sensitivity of the test depends o n the timing of the specimen collection and the quality of the specim en. Result should be correlated with patient's history and clinical presentat ion. ----ADDITIONAL INFORMATION---- This test is performed using the Aptima SARS-CoV-2 assay ([employer] which has received Emergency Use Authori zation (EUA) by the U.S. Food and Drug Administration. Fact sheets for this Emergency Use Autho rization (EUA) assay can be found at the following links: For Healthcare Providers: https://www.fd a.gov/media/795574/download For Patients: https://www.fda.gov/media/ 590336/download Specimen Anatomical Collection Method Collection Time Receive d Time (Source) Location / / Volume Laterality Varies 07/08/2020 1:34 PM 0 9:39 (Nasopharynx) SUPERVISOR ORCHARD PM SUPERVISOR ORCHARD Venu Collins P.A.-C. LAB MICROBIOLOGY - GENERAL O RDERABLES Performing Organization Address City/State/ZIP Code Phon e Number [facility]- [address] [place] [phone] [facility] [place] [address] System [address] documented in this encounter Visit Diagnoses Diagnosis Infection Upper Respiratory - Primary documented in this encounter Additional Health Concerns Infection Onset Date Last Indicated Resolved Time COVID19 Pending 07/08/2020 07/08/2020 07/09/2020 5:11 AM SUPERVISOR ORCHARD Assessment Noted Time PHQ-9 Depression Total Score: 9 07/08/2020 3:59 PM SUPERVISOR ORCHARD documented as of this encounter Care Teams Respiratory Technician Relationship Specialty Start Date End Date Alberto Locke M.D. PCP - General Family Medicine 04/27/19 documented as of this encounter
--- OUTSIDE RECORDS SUMMARY | 2022-07-29 08:25 | XMS_ITS | Encounter Summary ---
:1985 Author Organization [facility] Address [address] [place] [address] Care Team Providers Name Role Phone Alberto Locke M.D. Primary Care Provider Reason for Visit Reason Comments Urinary Tract Infection pt reports painful urination , urgency, and pressure Encounter Details Date Type Department Care Team Description 04/12/2021 Emergency [place] [facility] Berny Garcia Infabi garcia Urinary Tract Department Sera (Primary Dx) [address] [facility] [address] [place] [phone] (Wo rk) Social History Tobacco Use Types [...] How often do you attend denominational or quaker More than 4 time s [...] of Apr 12 2128 Infection Urinary Tract Benry Garcia M.D. 04/12/212127 documented in this encounter [...] + Susc, Urine (04/12/2021 8:49 PM CDT) [facility] gist Method Time Signature Urine Culture [...] + Sulbactam SUSCEPTIBILITY, >=32 mcg /mL: Resistant NTAALIE (MCG/ML) Escherichia coli Piperacillin + Tazobactam SUSCEPTIBILITY, [...] Code Phon e Number [facility]- [address] [place] [phone] [facility] [place] [address] System [address] (ABNORMAL) Microscopic Automated (04/12/2021 8:49 PM [...] Code Phon e Number [facility]- [address] [facility] [place], [place] [address] [place] [address] System in [place] 701 [facility] (ABNORMAL) Urinalysis with Microscopic if Indicated (04/12/2021 [...] 8.0 04/12/2021 9:03 PM CDT [facility] Specific [place] 1.022 1.001 - 1.035 04/12/2021 9:03 PM [...] Code Phon e Number [facility]- [address] [facility] [place], [place] [address] [place] [address] System in [place] [address] documented in this encounter Visit Diagnoses Diagnosis Infection Urinary Tract - Primary documented in this encounter Additional Health Concerns Assessment Noted Time PHQ-9 Depression Total Score: 9 07/08/2020 3:59 PM JOURNEYMAN POWERHOUSE OPERATOR documented as of this encounter Care Teams Structural Steel Detailer Relationship Specialty Start Date End Date Alberto Locke M.D. PCP - General Family Medicine 04/27/19 documented as of this encounter
--- OUTSIDE RECORDS SUMMARY | 2022-07-29 08:25 | XMS_ITS | Encounter Summary ---
:1985 Author Organization [facility] Address [address] [place] [address] Care Team Providers Name Role Phone Alberto Locke M.D. Primary Care Provider Reason for Referral Outpatient (Routine) - Closed Specialty Diagnoses / Procedures Referred By Contact Refer red To Contact Obstetrics and Diagnoses PAR Leonora Reaves, JOSEFA, MIGDALIAS [facility] Gynecology C.N.P. [address] [place] [phone] Referral ID Status Reason Start Date Expiration Date Visits Requ ested Visits Authorized [id number] Closed 07/24/2020 07/24/2021 1 1 Scheduling Instructions IUD insertion ER REGULATOR Reason for Visit Reason Comments Annual Exam Appointment Request (Routine) - Closed Specialty Diagnoses / Procedures Referred By Contact Refer red To Contact Obstetrics and Gynecology Referral ID Status Reason Start Date Expiration Date Visits Requ ested Visits Authorized [id number] Closed 07/24/2020 07/24/2021 1 1 Encounter Details Date Type Department Care Team Description 07/24/2020 Office Visit Department of Leonora Reaves Preventive G ynecological Exam (Primary Dx); Obstetrics and JOSEFA, C.N.P. Pap Smear Examination; Gynecology in [facility] [address] Migraine Headache; [facility] [place] Abuse Tobacco Smoking; [facility] [phone] Body Mass Index 60.0 To 69.9 Adult (HCC) ; [facility] [place] [phone] Depression Olimpia r Recurrent ([facility]) [phone] (Work) [phone] Social History Tobacco Use Types Packs/Day Years [...] How often do you attend jainism or sikhism More than 4 time s [...] Comments Blood Pressure 144/76 07/24/2020 1:03 PM TESTER REGULATOR Pulse - - Temperature - - Respiratory Rate - - Oxygen Saturation - - Inhaled Oxygen Concentration - - Weight 151 kg (332 lb 14.3 oz) 07/24/2020 1:03 PM TESTER REGULATOR Height - - Body Mass Index 61.26 [...] 3. Is due for a Pap smear QUALITY CONTROL LEAD HISTORY: Last Pap 2016 and was NIL. [...] M.D.; Location: [facility] OR ??? SECTION 04/12/2019 ??? ENDOSCOPIC [...] week Gets together: Once a week Attends sikhism service: More than 4 times per year [...] with logging foods in roque such as Reach[employer] or something comparable, making small changes as [...] blood/lymph issues: Yes No urinary/reproductive issues: Yes ER REGULATOR documented in this encounter Plan of Treatment Scheduled Referrals Name Type Priority Associated Order Schedule Diagnoses Obstetrics and Outpatient Referral Routine Expect ed: Gynecology office 07/24/2020 visit (clinic) (Approximate) , Expires: 07/24/2023 documented as of this encounter Procedures Procedure Name Priority Date/Time Associated Diagnosis Comme nts THINPREP W/HPV Routine 07/24/2020 1:43 PM Pap Smear Results for this CO-TEST SCREEN TESTER REGULATOR Examination procedure are in the results section. HPV WITH Routine 07/24/2020 1:43 PM Results f or this GENOTYPING, PCR, TESTER REGULATOR procedure a re in THINPREP the results section. documented in this encounter Results HPV with Genotyping, PCR, ThinPrep (07/24/2020 1:43 PM TESTER REGULATOR) [facility] gist Method Time Signature Specimen Thin Prep 07/29/2020 DTL Source Vial, 4:25 PM TESTER REGULATOR Cervix/Endoc ervix HPV High Risk Negative Negative 07/29/2020 DTL type 16, PCR 4:25 PM TESTER REGULATOR HPV High Risk Negative Negative 07/29/2020 DTL type 18, PCR 4:25 PM TESTER REGULATOR HPV other Negative Negative 07/29/2020 DTL High Risk 4:25 PM TESTER REGULATOR types, PCR Comment: The following Other High Risk HPV types were not detected: 31, 33, 35, 39, 45, 51, 52, 56, 58, 59, 66, and 68 This test was ordered in the context of a [facility] QUALITY CONTROL LEAD Cytology case; this result should be int erpreted within the context of the QUALITY CONTROL LEAD cytology report. Specimen Anatomical Collection Method Collection Time Receive d Time (Source) Location / / Volume Laterality Varies 07/24/2020 1:43 PM 0 TESTER REGULATOR 10:27 AM TESTER REGULATOR Leonora Reaves APRN, C.N.P. LAB MICROBIOLOGY - GENERAL O RDERABLES Performing Organization Address City/State/ZIP Code Phon e Number [facility] - [address] [place], [place] [address] [facility] [place] [address] [facility] [address] [facility] ThinPrep w/HPV Co-Test Screen (07/24/2020 1:43 PM TESTER REGULATOR) Component Value Ref Test Analysis Performed Pathologis t Range Method Time At Signature 07/30/2020 ECLR 2:28 PM TESTER REGULATOR Disclaimer High risk HPV testing, Real-Time Polymerase Chain Reac tion 07/30/2020 ECLR (PCR) was performed on the liquid-based cytology specimen 2:28 PM at [place], [place]. Report LISSETT Foley(ASCP) 07/30/2020 ECL R electronically I verify that I have examined all relevant slides/ma terials 2:28 PM signed by for the specimen(s) and rendered or confirmed the diagnosis. TESTER REGULATOR Gross Description Received specimen 07/30/2020 ECL R in a ThinPrep 2:28 PM vial. TESTER REGULATOR Pap Test Source Cervical/Endocervi 07/30/2020 ECLR huma 2:28 PM TESTER REGULATOR Interpretation Cervical/Endocervical ??(ThinPrep): 07/30/2020 ECLR Satisfactory for Evaluation 2:28 PM Endocervical/transformation zone components absent TESTER REGULATOR Negative for Intraepithelial Lesion or Malignancy ??High [...] Laterality Varies 07/24/2020 1:43 PM 0 (Cervix/Endocerv TESTER REGULATOR 10:27 AM CS T ix) Narrative This result has an attachment that is no t available. Leonora Reaves APRN, C.N.P. LAB PAP PATHDX ORDERABLES Performing Organization Address City/State/ZIP Code Phon e Number [facility]- [address] [place] [phone] [facility] [place] [address] System in [address] documented in this encounter Visit Diagnoses Diagnosis Preventive Gynecological Exam - Primary Pap Smear Examination Migraine Headache Abuse Tobacco Smoking Body Mass Index 60.0 To 69.9 Adult (HCC) Depression Major Recurrent (HCC) documented in this encounter Additional Health Concerns Assessment Noted Time PHQ-9 Depression Total Score: 9 07/08/2020 3:59 PM TESTER REGULATOR documented as of this encounter Care Teams Legal Practice Manager Relationship Specialty Start Date End Date Alberto Locke M.D. PCP - General Family Medicine 04/27/19 documented as of this encounter
--- OUTSIDE RECORDS SUMMARY | 2022-07-29 08:25 | XMS_ITS | Encounter Summary ---
:1985 Author Organization [facility] Address [address] [place] [address] Care Team Providers Name Role Phone Alberto Locke M.D. Primary Care Provider Encounter Details Date Type Department Care Team Description 10/17/2019 Orders Only Department of Pediatrics in [facility] cynthia [place], [place] P.A.-C. [address] [facility] [address] [place] [address] [place] [phone] (Wo rk) Social History Tobacco Use Types [...] How often do you attend baptism or pentecostal More than 4 time s [...] documented as of this encounter Care Teams Herbologist Relationship Specialty Start Date End Date Alberto Locke M.D. PCP - General Family Medicine 04/27/19 documented as of this encounter
--- OUTSIDE RECORDS SUMMARY | 2022-07-29 08:25 | XMS_ITS | Encounter Summary ---
:1985 Author Organization [facility] Address [address] [place] [address] Care Team Providers Name Role Phone Alberto Locke M.D. Primary Care Provider Reason for Visit Reason Onset Date Comments Outpatient COVID-19 Testing 03/05/2020 Encounter Details Date Type Department Care Team Description 03/05/2020 External Outreach Department of Employer Based, [facility] For Family Medicine, Covid Serology Screening For Other [facility], in Testing Viral Di [place], [place] (COVID-19) (Primary [address] Dx) [place] [address] Social History Tobacco Use Types [...] How often do you attend shinto or muslim More than 4 time s [...] to pay for the very basics like Site Tourw hat hard 07/09/2020 food, housing, medical care, [...] Scrn, Blood Spot (03/05/2020 9:10 AM CDT) [facility] Method Time Signature SARS-CoV-2 Reactive (A) Negative 03/06/2020 [facility] IgG Emp Scrn, 3:24 PM [...] Testing was performed using the EUROIMMU N Ylvz-[id number]-WtX-2 DONALD (IgG). ??This test has received Emergency Use Authorization (EUA) by the U.S. Food and Drug Administration and is used per continuous dryout operator helper's instructions, but it is modified from the continuous dryout operator helper's instructions wit h a bridging study to include dried blood spot specimens. ? ? Performance characteristics were verifie d by [facility] in a manner consistent with CLIA require ments. Specimen Anatomical Collection Method Collection Time Receive d Time (Source) Location / / Volume Laterality Blood (Blood, 03/05/2020 9:10 AM 03/05/20 20 8:50 Venous) CDT PM CDT Covid Serology Testing Employer Based LAB MICROBIOLOGY - BLOOD ORDERABLES Performing Organization Address City/State/ZIP Code Phon e Number [facility] [address] [place], [place] [address] [place] [address] [place] [address] Laboratory Medicine and Pathology [address] [place] documented in this encounter Visit Diagnoses Diagnosis Encounter For Screening For Other Viral Diseases (COVID-19) - Primary documented in this encounter Additional Health Concerns Assessment Noted Time PHQ-9 Depression Total Score: 11 03/05/2020 4:06 PM CD T documented as of this encounter Care Teams Patient Day Coordinator Relationship Specialty Start Date End Date Alberto Locke M.D. PCP - General Family Medicine 04/27/19 documented as of this encounter
--- OUTSIDE RECORDS SUMMARY | 2022-07-29 08:25 | XMS_ITS | Encounter Summary ---
:1985 Author Organization [facility] Address [address] [place] [address] Care Team Providers Name Role Phone Alberto Locke M.D. Primary Care Provider Reason for Referral Outpatient (Routine) - Closed Specialty Diagnoses / Procedures Referred By Contact Refer red To Contact Diagnoses Insertion Intrauterine Device Leonora Reaves APRN, [facility] Region Procedures IUD - Insertion or Reinsertion w/removal C.N.P. [address] [place] [phone] Referral ID Status Reason Start Date Expiration Date Visits Requ ested Visits Authorized [id number] Closed 08/07/2020 08/07/2021 1 1 RO SERVER Reason for Visit Reason Comments Contraception Outpatient (Routine) - Closed Specialty Diagnoses / Procedures Referred By Contact Refer red To Contact Obstetrics and Diagnoses PAR Leonora Reaves APRN, [facility] Gynecology C.N.P. [address] [place] [address] Referral ID Status Reason Start Date Expiration Date Visits Requ ested Visits Authorized [id number] Closed 07/24/2020 07/24/2021 1 1 Encounter Details Date Type Department Care Team Description 08/07/2020 Office Visit Department of Leonora Reaves, Insertion In trauterine Obstetrics and JOSEFA C.N.P. Device (Primary Dx) Gynecology in [place] [address] [facility] [place] [address] [facility] [address] NEHEMIAH GRANT [phone] [address] (Work) [phone] Social History Tobacco Use Types Packs/Day Years [...] Comments Blood Pressure 138/82 08/07/2020 10:53 AM BISTRO SERVER Pulse - - Temperature - - Respiratory Rate - - Oxygen Saturation - - Inhaled Oxygen Concentration - - Weight 150 kg (330 lb 11 oz) 08/07/2020 10:53 AM BISTRO SERVER Height - - Body Mass Index 60.85 [...] appropriate location of the IUD is verified. BOAT CAMP OPERATOR RO SERVER documented in this encounter Plan of Treatment Not on filedocumented as of this encounter Procedures Procedure Name Priority Date/Time Associated Diagnosis Comme nts HI INSERT OF Routine 08/07/2020 11:00 Insertion Results for this INTRAUTERINE DEVICE AM BISTRO SERVER Intrauterine Device p rocedure are in the results section. documented in this encounter Results HI INSERT OF INTRAUTERINE DEVICE (08/07/2020 11:00 AM BISTRO SERVER) Narrative MMODAL - 08/07/2020 11:00 AM BISTRO SERVER Leonora Reaves WHNP-BC RBrittaneyN. ? 08/07/2020 11:34 [...] is the second attempt at IUD in [facility] in approximately 2 weeks time. [...] mcg/24 hours (6 Given 08/07/2020 11:30 AM BISTRO SERVER 1 each yrs) 52 mg IUD 1 each (MIRENA) 1 each, intrauterine, One-Time Injection, Starting on Wed08/07/20 at 1130, For 1 dose documented in this encounter Additional Health Concerns Assessment Noted Time PHQ-9 Depression Total Score: 9 07/08/2020 3:59 PM BISTRO SERVER documented as of this encounter Care Teams Certified Phlebotomist Relationship Specialty Start Date End Date Alberto Locke M.D. PCP - General Family Medicine 04/27/19 documented as of this encounter
--- OUTSIDE RECORDS SUMMARY | 2022-07-29 08:25 | XMS_ITS | Encounter Summary ---
:1985 Author Organization [facility] Address [address] [place] [address] Care Team Providers Name Role Phone Alberto Locke M.D. Primary Care Provider Reason for Visit Outpatient (Routine) - Closed Specialty Diagnoses / Procedures Referred By Contact Refer red To Contact Tammie Snyder APRN, C.NJud, M [facility] M.S.N. [address] [place] [phone] Referral ID Status Reason Start Date Expiration Date Visits Requ ested Visits Authorized [id number] Closed 07/09/2020 07/09/2021 1 1 Encounter Details Date Type Department Care Team Description 07/09/2020 Office Visit Urgent Care in [facility] Tammie Snyder APRN, C.NLebron., M.S.N. [address] [place] [phone] Pharyngitis [place], [place] Bree Burt L.PBrittaneyNBrittaney (Primary Dx) [address] [place] [address] Social History Tobacco Use Types [...] How often do you attend pentecostalism or restorationist More than 4 time s [...] 07/09/2020 3:45 PM CST Strep test complete TRICIAN SOUND documented in this encounter Miscellaneous Notes Result Encounter Note - Suzanne Almodovar P.A.-C. - 07/10/2020 12:53 PM ELECTRICIAN SOUND Results were negative for strep. TRICIAN SOUND documented in this encounter Plan of Treatment Not on filedocumented as of this encounter Procedures Procedure Name Priority Date/Time Associated Diagnosis Comme nts GROUP A STREP PCR, STAT 07/09/2020 4:04 PM Pharyngitis Acut e Results for this THROAT ELECTRICIAN SOUND procedure are i n the results section. documented in this encounter Results Streptococcus Group A, Molecular Detection, PCR, Throat (07/09/2020 4:04 PM ELECTRICIAN SOUND) P athologist Signature Group A Strep Negative Negative 07/09/2020 [facility] PCR, Throat 4:36 PM ELECTRICIAN SOUND Specimen Anatomical Collection Method Collection Time Receive d Time (Source) Location / / Volume Laterality Varies (Throat) 07/09/2020 4:04 PM 2019 4:04 ELECTRICIAN SOUND PM ELECTRICIAN SOUND Erlin Link P.A.-C. LAB MICROBIOLOGY - GENERAL O RDERABLES Performing Organization Address City/State/ZIP Code Phon e Number [facility]- [address] [facility] [place], [place] [address] [facility] [place] [address] System in [place] [address] [place] documented in this encounter Visit Diagnoses Diagnosis Pharyngitis Acute - Primary documented in this encounter Additional Health Concerns Assessment Noted Time PHQ-9 Depression Total Score: 9 07/08/2020 3:59 PM ELECTRICIAN SOUND documented as of this encounter Care Teams Photo Intern Relationship Specialty Start Date End Date Alberto Locke M.D. PCP - General Family Medicine 04/27/19 documented as of this encounter
--- OUTSIDE RECORDS SUMMARY | 2022-07-29 08:25 | XMS_ITS | Encounter Summary ---
:1985 Author Organization [facility] Address [address] [place] [address] Care Team Providers Name Role Phone Alberto [...] How often do you attend hinduism or confucianism More than 4 time s [...] Total Antibody, Serum (03/12/2020 5:36 PM CDT) [facility] Method Time Signature SARS-CoV-2 Negative Negative [...] was performed using the [employer] El [employer]csys Dujn-RXLE-EzE-2 Reagent assay from [employer], which has received Emergency Use Authori zation(EUA) by the U.S. Food and Drug Administration . Fact sheets for this Emergency Use Autho rization (EUA) assay can be found at the following link s: For Healthcare Providers: https://www.fda.gov/media/529266/downloa d For Patients: https://www.fda.gov/media/295726/downloa d Specimen Anatomical Collection Method Collection Time Receive d Time (Source) Location / / Volume Laterality Blood (Blood, 03/12/2020 5:36 PM 03/13/20 20 3:23 Venous) CDT PM CDT Covid Serology Testing Employer Based LAB MICROBIOLOGY - BLOOD ORDERABLES Performing Organization Address City/State/ZIP Code Phon e Number [facility]- [address] [place] [phone] [facility] [place] [address] System in [address] documented in this encounter Visit Diagnoses Diagnosis Encounter For Screening For Other Viral Diseases (COVID-19) - Primary documented in this encounter Additional Health Concerns Assessment Noted Time PHQ-9 Depression Total Score: 11 03/05/2020 4:06 PM CD T documented as of this encounter Care Teams Medical Lab Technologist Relationship Specialty Start Date End Date Alberto Locke M.D. PCP - General Family Medicine 04/27/19 documented as of this encounter
--- OUTSIDE RECORDS SUMMARY | 2022-07-29 08:25 | XMS_ITS | Encounter Summary ---
:1985 Author Organization [facility] Address [address] [place] [address] Care Team Providers Name Role Phone Alberto Locke M.D. Primary Care Provider Reason for Visit Reason Comments URI Appointment Request (Routine) - Closed Specialty Diagnoses / Procedures Referred By Contact Refer red To Contact Family Medicine Referral ID Status Reason Start Date Expiration Date Visits Requ ested Visits Authorized [id number] Closed 09/11/2019 09/10/2020 1 1 Encounter Details Date Type Department Care Team Description 09/11/2019 Office Visit Department of Family Gerda Pike [facility] (Primary Dx); Medicine, [place] BINDERY HELPER, C.N.P., Phar yngitis Acute; Clinic, in [place] D.N.PBrittaney Body Mass Index 50.0 To 59.9 Adult (HCC) ; [place] [address] Abuse Tobacco Smoking [address] [place] [phone] Social History Tobacco Use Types Packs/Day Years [...] How often do you attend synagogue or jain More than 4 time s [...] Comments Blood Pressure 130/73 09/11/2019 9:34 AM QUOTATION CLERK Pulse 92 09/11/2019 9:34 AM QUOTATION CLERK Temperature 35.7 ??C (96.3 ??F) 09/11/2019 9:34 AM QUOTATION CLERK Respiratory Rate - - Oxygen Saturation 95% 09/11/2019 9:34 AM QUOTATION CLERK Inhaled Oxygen Concentration - - Weight 136 kg (299 lb 13.2 oz) 09/11/2019 9:34 AM QUOTATION CLERK Height - - Body Mass Index 54.82 [...] No h/o asthma. No fever reducers today. ATION CLERK Gerda Pike APRN, C.NJud, D.N.P. - 09/11/2019 [...] the content. Gerda Pike APRN, C.N.P., D.N.P. ATION CLERK documented in this encounter Plan of Treatment Not on filedocumented as of this encounter Procedures Procedure Name Priority Date/Time Associated Diagnosis Comme nts INFLUENZA A, B, Routine 09/11/2019 10:29 AM Resul ts for this RSV, PCR, POCT QUOTATION CLERK procedure are in the results section. STREP GROUP A, PCR, Routine 09/11/2019 10:17 AM R esults for this POCT QUOTATION CLERK procedure are i n the results section. STREP GROUP A, PCR, Routine 09/11/2019 9:52 AM Pharyngitis Acu te Results for this POCT QUOTATION CLERK procedure are i n the results section. INFLUENZA A, B, Routine 09/11/2019 9:52 AM Cough Result s for this RSV, PCR, POCT QUOTATION CLERK procedure are in the results section. documented in this encounter Results Influenza A/B and RSV, PCR, Point of Care (09/11/2019 10:29 AM QUOTATION CLERK) P athologist Signature Influenza A, Negative Negative 09/11/2019 CNFL POCT 10:29 AM QUOTATION CLERK Influenza B, Negative Negative 09/11/2019 CNFL POCT 10:29 AM QUOTATION CLERK Resp Syncytial Negative Negative 09/11/2019 CNFL Virus, POCT 10:29 AM QUOTATION CLERK Specimen Anatomical Collection Method Collection Time Receive d Time (Source) Location / / Volume Laterality Varies 09/11/2019 10:29 09/11/2019 AM QUOTATION CLERK 10:30 AM QUOTATION CLERK Generic Rals LAB POCT ORDERABLES - DEVICE Performing Organization Address [facility] Phon e Number [address] [address] [place] [address] System [address] Strep Group A, PCR, Point of Care (09/11/2019 10:17 AM QUOTATION CLERK) athologist Signature Strep Group A, Negative Negative 09/11/2019 CNFL PCR, POCT 10:17 AM QUOTATION CLERK Specimen Anatomical Collection Method Collection Time Receive d Time (Source) Location / / Volume Laterality Varies 09/11/2019 10:17 09/11/2019 AM QUOTATION CLERK 10:21 AM QUOTATION CLERK Generic Rals LAB POCT ORDERABLES - DEVICE Performing Organization Address [facility] Phon e Number [address] [address] [place] [address] System [address] Strep Group A, PCR, Point of Care (09/11/2019 9:52 AM QUOTATION CLERK) Analysis Performed At Patho logist Time Signature Strep Group A, Collected DEFAULT 09/11/2019 CNFL PCR, POCT 9:58 AM QUOTATION CLERK Specimen Anatomical Collection Method Collection Time Receive d Time (Source) Location / / Volume Laterality Varies (Throat) 09/11/2019 9:52 AM 2019 9:58 QUOTATION CLERK AM QUOTATION CLERK Marlyn Camacho APRN.N.P., D.N.P. LAB POCT ORDERABL ES - DEVICE Performing Organization Address [facility] Code Phon e Number [address] [address] [place] [address] [address] Influenza A/B and RSV, PCR, Point of Care (09/11/2019 9:52 AM QUOTATION CLERK) Analysis Performed At Patho logist Time Signature Influenza A, Collected DEFAULT 09/11/2019 CNFL B, RSV, PCR, 9:58 AM QUOTATION CLERK POCT Specimen Anatomical Collection Method Collection Time Receive d Time (Source) Location / / Volume Laterality Varies 09/11/2019 9:52 AM 0 9:58 (Nasopharynx) QUOTATION CLERK AM QUOTATION CLERK Marlyn Camacho APRN.N.P., D.N.P. LAB POCT ORDERABL ES - DEVICE Performing Organization Address [facility] Code Phon e Number [address] [address] [place] [address] System [address] documented in this encounter Visit Diagnoses Diagnosis Cough Unspecified Type - Primary Pharyngitis Acute Body Mass Index 50.0 To 59.9 Adult (HCC) Abuse Tobacco Smoking documented in this encounter Additional Health Concerns Assessment Noted Time PHQ-9 Depression Total Score: 3 05/30/2019 10:59 AM CD T documented as of this encounter Care Teams Inspecting Machine Adjuster Relationship Specialty Start Date End Date Alberto Locke M.D. PCP - General Family Medicine 04/27/19 documented as of this encounter
--- OUTSIDE RECORDS SUMMARY | 2022-07-29 08:25 | XMS_ITS | Encounter Summary ---
:1985 Author Organization [facility] Address [address] [place] [address] Care Team Providers Name Role Phone Alberto Locke M.D. Primary Care Provider Encounter Details Date Type Department Care Team Description 03/12/2020 Hospital Encounter Department of [facility] laura Brown Laboratory Medicine Leonora Flaherty [place] in [place] Viral Diseases [place] [id number] (COVID-19) [address] [place] [address] [place] [phone] Social History Tobacco Use [...] How often do you attend christianity or holiness More than 4 time s [...] Antibody, Serum (03/12/2020 5:36 PM CDT) [facility] Method Time Signature SARS-CoV-2 Negative Negative 03/13/2020 [...] was performed using the [employer] [id number] Reagent assay from [employer], which has received Emergency Use Authori zation(EUA) by the U.S. Food and Drug Administration . Fact sheets for this Emergency Use Autho rization (EUA) assay can be found at the following link s: For Healthcare Providers: https://www.fda.gov/media/608123/downloa d For Patients: https://www.fda.gov/media/330649/downloa d Specimen Anatomical Collection Method Collection Time Receive d Time (Source) Location / / Volume Laterality Blood (Blood, 03/12/2020 5:36 PM 03/13/20 20 3:23 Venous) CDT PM CDT Covid Serology Testing Employer Based LAB MICROBIOLOGY - BLOOD ORDERABLES Performing Organization Address City/State/ZIP Code Phon e Number [facility]- [address] [place] [phone] [facility] [place] [address] System in [address] documented in this encounter Visit Diagnoses Diagnosis Encounter For Screening For Other Viral Diseases (COVID-19) documented in this encounter Additional Health Concerns Assessment Noted Time PHQ-9 Depression Total Score: 11 03/05/2020 4:06 PM CD T documented as of this encounter Care Teams Environmental Engineer Scientist Relationship Specialty Start Date End Date Alberto Locke M.D. PCP - General Family Medicine 04/27/19 documented as of this encounter
--- OUTSIDE RECORDS SUMMARY | 2022-07-29 08:25 | XMS_ITS | Encounter Summary ---
:1985 Author Organization [facility] Address [address] [place] [address] Care Team Providers Name Role Phone Alberto Locke M.D. Primary Care Provider Reason for Visit Reason Comments Follow-up Outpatient (Routine) - Closed Specialty Diagnoses / Procedures Referred By Contact Refer red To Contact Family Medicine Alberto Locke M.D. [address] Mustafa [place], [place] [address] Referral ID Status Reason Start Date Expiration Date Visits Requ ested Visits Authorized [id number] Closed 12/06/2019 12/05/2020 1 1 Encounter Details Date Type Department Care Team Description 03/05/2020 Office Visit Department of Family Alberto Locke M.D. Depression Major Recurrent (HCC) (Primar y Dx); [address] Mustafa [facility], in [facility] [address] [place] [address] [place] [address] Social History Tobacco Use Types [...] often do you attend oriental orthodox or mormon More than 4 time s per year 07/09/2020 services? Do you belong to any clubs or organizations No 04/19/2019 such as oriental orthodox groups, unions, [employer] or athletic groups, or school groups? How [...] ??? Depression Major Recurrent ([facility]) Current Outpatient Medications Medication [...] week Gets together: Once a week Attends mormon service: 1 to 4 times per year [...] SECTION; Surgeon: Xin De Leon M.D.; Location: [facility] OR ??? SECTION 04/12/2019 ??? ENDOSCOPIC RETROGRADE CHOLANGIOPANCREATOGRAPHY (ERCP) N/A 11/08/2017 Procedure: ENDOSCOPIC RETROGRADE CHOLANGIOPANCREATOGRAPHY; Surgeon: Rubio Baker M.D.; Location: [facility] OR ??? ESOPHAGOGASTRODUODENOSCOPY N/A 11/11/2017 Procedure: ESOPHAGOGASTRODUODENOSCOPY; Surgeon: Rubio Baker M.D.; Location: [facility] GI LAB ??? LAPAROSCOPIC APPENDECTOMY N/A 09/08/2017 Procedure: LAPAROSCOPIC APPENDECTOMY; Surgeon: Edd Moeller D.O.; Location: [facility] OR ??? LAPAROSCOPIC CHOLECYSTECTOMY WITH CHOLANGIOGRAM N/A 03/03/2018 Procedure: LAPAROSCOPIC CHOLECYSTECTOMY POSSIBLE CHOLANGIOGRAM; Surgeon: Edd Moeller D.O.; Location: [facility] OR ??? OTHER CONVERTED SHX (SEE [...] as of this encounter Care Teams Talent Manager Relationship Specialty Start Date End Date Alberto Locke M.D. PCP - General Family Medicine 04/27/19 documented as of this encounter
--- OUTSIDE RECORDS SUMMARY | 2022-07-29 08:25 | XMS_ITS | Encounter Summary ---
:1985 Author Organization [facility] Address [address] [place] [address] Care Team Providers Name Role Phone Alberto Locke M.D. Primary Care Provider Reason for Visit Reason Comments COVID Nurse Line Encounter Details Date Type Department Care Team Description 12/06/2019 Clinical Communication Division of [facility] Nurse Line [facility] L, R.N. [facility] [address] [place] [phone] [place] [phone] 200 [facility] [place] (Work) [place] [address] Social History Tobacco Use Types Packs/Day Years [...] How often do you attend amish or quaker More than 4 time s [...] and water aren't available, use a hand category analyst that contains at least 60% alcohol. Avoid [...] essential items or medical care). Educational Resource: https://www.cdc.gov/coronavirus/2019-ncov/escifrd-joaqzlu-nyol/index.html Education: patient/caregiver Patient/caregiver able to teach back Patient agreeable to plan of care: Yes The following references were used: [facility] novel coronavirus (COVID- 19) resources documented in this encounter Plan of Treatment Not on filedocumented as of this encounter Visit Diagnoses Not on filedocumented in this encounter Additional Health Concerns Assessment Noted Time PHQ-9 Depression Total Score: 6 12/06/2019 10:58 AM CD T documented as of this encounter Care Teams Investigative Agent Relationship Specialty Start Date End Date Alberto Locke M.D. PCP - General Family Medicine 04/27/19 documented as of this encounter
--- OUTSIDE RECORDS SUMMARY | 2022-07-29 08:25 | XMS_ITS | Encounter Summary ---
:1985 Author Organization [facility] Address [address] [place] [address] Care Team Providers Name Role Phone Alberto Locke M.D. Primary Care Provider Encounter Details Date Type Department Care Team Description 07/08/2020 Clinical Communication Department of [facility] Alberto Fregoso M.D. [address], in [id number] [place] [address] (Wo rk) [address] [phone] Social History Tobacco Use Types Packs/Day Years [...] How often do you attend catholic or sabianist More than 4 time s [...] not improve. Thank you for the information FACTURING ASSOCIATE Telephone Encounter - Venu Collins P.A.-C. - 07/08/2020 11:29 AM MANUFACTURING ASSOCIATE Currently only COVID swabs can be performed at the testing site. This may change in the future. FACTURING ASSOCIATE Telephone Encounter - Karey Carballo L.PBrittaneyNBrittaney - 07/08/2020 11:20 AM MANUFACTURING ASSOCIATE I believe just covid test are done at the [facility] site? Will ask Venu FACTURING ASSOCIATE Telephone Encounter - Cristine Ramesh - 07/08/2020 [...] Thanks Name of Medication (if relevant): N/A FACTURING ASSOCIATE documented in this encounter Plan of Treatment Not on filedocumented as of this encounter Visit Diagnoses Not on filedocumented in this encounter Additional Health Concerns Infection Onset Date Last Indicated Resolved Time COVID19 Pending 07/08/2020 07/08/2020 07/09/2020 5:11 AM MANUFACTURING ASSOCIATE Assessment Noted Time PHQ-9 Depression Total Score: 9 07/08/2020 3:59 PM MANUFACTURING ASSOCIATE documented as of this encounter Care Teams Solar Energy Advisor Relationship Specialty Start Date End Date Alberto Locke M.D. PCP - General Family Medicine 04/27/19 documented as of this encounter
--- OUTSIDE RECORDS SUMMARY | 2022-07-29 08:25 | XMS_ITS | Encounter Summary ---
:1985 Author Organization [facility] Address [address] [place] [address] Care Team Providers Name Role Phone Alberto Locke M.D. Primary Care Provider Encounter Details Date Type Department Care Team Description 12/06/2019 Hospital Encounter Department of [place], Nuno W, Pain L ower Leg Right; [facility] Sw[facility] Right [address] [phone] Social History Tobacco Use Types Packs/Day Years [...] to pay for the very basics like GetBulbw hat hard 07/09/2020 food, housing, medical care, [...] documented as of this encounter Care Teams Cookie Mixer Helper Relationship Specialty Start Date End Date Alberto Locke M.D. PCP - General Family Medicine 04/27/19 documented as of this encounter
--- OUTSIDE RECORDS SUMMARY | 2022-07-29 08:25 | XMS_ITS | Encounter Summary ---
:1985 Author Organization [facility] Address [address] [place] [address] Care Team Providers Name Role Phone Alberto Locke M.D. Primary Care Provider Encounter Details Date Type Department Care Team Description 11/29/2020 Immunization Department of [facility] Ian Hays, Medicine, [place] M.DBrittaney Professional Building, in [address] [place], [place] [address] [facility] [address] [address] [place] [address] [phone] Social History Tobacco Use Types Packs/Day Years [...] How often do you attend moravian or roman catholic More than 4 time [...] Depression Total Score: 9 07/08/2020 3:59 PM CLERK GENERAL documented as of this encounter Care Teams Batcher Operator Relationship Specialty Start Date End Date Alberto Locke M.D. PCP - General Family Medicine 04/27/19 documented as of this encounter
--- OUTSIDE RECORDS SUMMARY | 2022-07-29 08:26 | XMS_ITS | Encounter Summary ---
:1985 Author Organization [facility] Address [address] [place] [address] Care Team Providers Name Role Phone Alberto Locke M.D. Primary Care Provider Encounter Details Date Type Department Care Team Description 04/25/2019 Orders Only Department of Family Alberto Locke M.D. [facility] [address] [place] [address] Dr Mustafa [facility], in [place], [place] [phone] [place] [address] [place] [address] [place] [phone] Social History Tobacco Use Types Packs/Day [...] How often do you attend druze or yazidi More than 4 time s [...] documented as of this encounter Care Teams Tax Map Technician Relationship Specialty Start Date End Date Alberto Locke M.D. PCP - General Family Medicine 04/27/19 documented as of this encounter
--- OUTSIDE RECORDS SUMMARY | 2022-07-29 08:26 | XMS_ITS | Encounter Summary ---
:1985 Author Organization [facility] Address [address] [place] [address] Care Team Providers Name Role Phone Blaire Bundy P.A.-C. Primary Care Provider [phone] Reason for Referral Outpatient (Routine) - Closed Specialty Diagnoses / Procedures Referred By Contact Refer red To Contact Obstetrics and Diagnoses Section Delivery ([facility]) Harleen Josue D.O. [facility] Gynecology [address] [place] [address] Referral ID Status Reason Start Date Expiration Date Visits Requ ested Visits Authorized [id number] Closed 04/15/2019 04/14/2020 1 1 Reason for Visit Reason Comments Abdominal Pain pt brought in by ambulance w ith abd pain/contractions. pt states she has nexplanon in her arm and had no idea she was Auth/Cert Specialty Diagnoses / Procedures Referred By Contact Refer red To Contact Diagnoses Precipitate Labor ([facility]) Procedures x Referral ID Status Reason Start Date Expiration Date Visits Requ ested Visits Authorized [id number] 1 1 Encounter Details Date Type Department Care Team Description 04/12/2019 - Hospital Encounter [facility] Xin Vaughn Precipi briceño Labor ([facility]) (Primary Dx); [facility] Medical [place], [address] [facility] [place], [place] [address] [facility] [address] [place], [place] [phone] (Work) [phone] Social History Tobacco Use Types Packs/Day Years [...] Case IDs Date Procedure Surgeon Location Status [id number] 04/12/19 SECTION Xin Vaughn M.D. [facility] OR [place] Review the Delivery Report for details. GA: Unknown GP: Risk Factors: Obesity No Care Asthma Obstetric Procedures this : None Labor Complications: Persistent Category 2;Precipitous Labor <3 Hours Delivery Details: 04/12/2019 10:10 AM with Apgars of 8 and 9 . Delivery Type: , Low Transverse Lacerations: Nabeel Clayton [[phone]] [place] Weight: 3.93 kg Feeding Method: both breast [...] due to habitus. She was placed on hospital monitor. She was tachycardic in the 110s-130s. [...] 04/19/2019 10:00 AM Melany Montoya APRNCHRISTOPH OBG [facility] 05/30/2019 11:00 AM Leonora Reaves APRN, C.N.P. [facility] Problem List Body Mass Index 50.0 To 59.9 Adult ([facility]) Body Mass Index (BMI) 50.0-59.9 Adult Abuse Tobacco Smoking Migraine Headache Apnea Sleep Obstructive Gastroesophageal Reflux Disease NOS Calculus Of Bile Duct Without Cholangitis Or Cholecystitis With Obstruction Added automatically from request for surgery [id number] Pain Right Upper Quadrant Gallstone With Common Bile Duct Stone Added automatically from request for surgery [id number] Attention Deficit With Hyperactivity Disorder Depression Major Precipitate Labor ([facility]) Care Insufficient Patient did not know she was until delivery Section Delivery ([facility]) Discharge instructions were provided to [...] support, Discharge Planning, Resource/Education Discharge Planning: Other (Comment)([facility] information provided. Completed a 's Non-Paternity Statement. with Brendonevelin Clayton.) Who was present during the interview?: Patient, Other (comment), Family(Supportive cousin, Chloe shaw mother were present during this workers interview. ) Tram Driver Services Used: No Patient Information Primary Caregiver: Self Legal Information Legal Decision Maker: Self OBJECTIVE Functional Status (ADLs) Functional Status: Independent Behavior: Oriented Communication: Can write, Talks, Understands speaking, Understands [place] Environmental Supports Home Environment: Apartment(Puneet and her 11 year old son-Edy and her alomst 2 year old son-Shahzad,along with daughter-Keri Juarez reside in an apartment in [place], [place] . Plan todischarge to her mothers home in [place] upon discharge.) Anticipated Needs/Assistive Devices ADL Anticipated Needs: None Equipment Anticipated Needs: None Transportation Needs: Support from family(Has a car seat and her family will pick her up whenever medically stable. 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 Puneet's mother, Nichole helps with not using day care. Good family support forher and her children. Does not get child support. Plans to get both Shahzad & Keri [facility].) Income Source: Employed, Food stamps(Puneet reports [...] Juarez. Puneet resides in an apartment in [place], [place] along with her two sons, Edy, age 11 years (will be in middle school this year) and son-Shahzad who will be two in June,.Puneet does not receive any child support for Edy or Shahzad. Puneet is legally to their father, Brendon Claytonof [place], [place]. This worker called, by request of Puneet, to Brendon and requested that he schedule a visit to complete the necessary paperwork for the 's Non- Paternity Statement.(scheduled at 11:00am April 14 with the OB-DISPUTE RESOLUTION ANALYST.) Brendon can be reached at [phone]. He lives in [place]. Puneet reports, and Brendon confirmed that they have been for one and a half years. Puneet's mother, Nichole Young is very support, along with a close cousin, Chloe who both reside within blocks of each other in [place]. Puneet also has two younger sisters, Leonora is a half sister and lives in [place], Xin is a step sister. All are reportedly supportive in her life. Puneet's dad is also a support and was watching Shahzad when she went into labor at the [facility] in [place]. Puneet's dad lives in [place], [place] and is supportive of her and the new baby. In discussing options, Puneet very clearly wants to parent this baby girl. Puneet also stated that she already loves Keri very much, as does the rest of the family, including her oldest brother, Edy. Puneet had recently applied for food stamps in [facility] and was denied because she was $10 over the income level. Puneet will apply again, now with an additional child on the case. Provided Puneet with WIC(Women, Infants & Children) Program, including documents that are needed for [facility], [phone]. Puneet will call and set up an [...] He reportedly has two other children in [place] that he does not financially support or [...] denies . She was transferred [facility] having contractions last approximately 1 [...] [facility] .. Final Diagnoses: as of Apr 12 09 Precipitate Labor (HCC) Berny Garcia M.D. 04/12/19 0949 documented in this encounter Miscellaneous Notes Note - Olivai Stark R.N. - 04/15/2019 8:55 AM CDT This note was copied from a baby's chart. SUBJECTIVE Girl Puneet Clayton, at 3 days old of age, was seen for a Consultation. OBJECTIVE Delivery Details: Risk Factors: Obesity No Care Asthma Obstetric Procedures-This : None Labor Complications: Persistent Category 2;Precipitous Labor <3 Hours Delivery Type: , Low Transverse [place] Weight: 3930 g 1 Minute 5 Minute [...] check. Olivia Stark R.N. Hospital Course - [place] HarleenTyshawn antoine - 04/15/2019 8:20 AM CDT [...] due to habitus. She was placed on hospital monitor. She was tachycardic in the 110s-130s. [...] use as needed. . . Infant Assessment [place] in color, transcutaneous bilirubin at 44 hours [...] Puneet Clayton 33 y.o. Yasir, Girl Puneet [[phone]] Delivery Providers Delivering clinician: Xin Vaughn M.D. Provider Role Delivery Nurse Nursery Nurse Senior Product Marketing Manager Review the Delivery Report for details. GA: [...] CBC without Differential (04/14/2019 11:00 AM CDT) [facility] Method Time Signature Hemoglobin 8.6 (L) 11.6 [...] D.O. LAB BLOOD ADD-ON Performing Organization Address City/[facility]/ZIP Code Phon e Number [facility] [place] [address] [facility] (ABNORMAL) CBC without Differential (04/14/2019 6:35 AM CDT) [facility] TipRanks Method Time Signature Hemoglobin 8.2 (L) 11.6 [...] Phon e Number [facility] [place] [address] [facility] (ABNORMAL) CBC with Differential, Blood (04/13/2019 9:43 PM CDT) [facility] TipRanks Method Time Signature Hemoglobin 8.9 (L) 11.6 [...] e Number [facility] [address] [address] LAB Rubella Antibodies, IgG (04/13/2019 5:05 PM [...] - BLOOD ORD ERABLES Performing Organization Address [facility] Phon e Number [address] [place] [address] [facility] LAB Syphilis IgG Antibody with [...] D.O. LAB BLOOD ADD-ON Performing Organization Address [facility] Phon e Number [address] [place] [address] [facility] LAB (ABNORMAL) CMP (Comprehensive Metabolic [...] >=60 04/13/2019 Black/ mL/min/BSA 5:55 PM CDT [place] Comment: ----ADDITIONAL INFORMATION---- Estimated GFR calculated using [...] e Number [facility] [address] [place] [address] LAB (ABNORMAL) CBC with Differential, Blood (04/13/2019 5:05 PM CDT) [facility] Method Time Signature Hemoglobin 9.1 (L) 11.6 [...] e Number [facility] [address] [address] LAB Transfuse Red Blood Cells (04/13/2019 12:21 [...] >=60 04/13/2019 Black/ mL/min/BSA 7:14 AM CDT [place] Comment: ----ADDITIONAL INFORMATION---- Estimated GFR calculated using [...] e Number [facility] [place] [address] [facility] (ABNORMAL) CBC without Differential (04/13/2019 6:35 AM CDT) [facility] Method Time Signature Hemoglobin 7.9 (L) 11.6 [...] [facility] [address] [place] [address] [facility] Phosphorus Inorganic (04/12/2019 11:36 PM CDT) P athologist Signature Phosphorus 4.2 2.5 - 4.5 04/13/2019 (Inorganic), S mg/dL 1:07 AM CDT Specimen Anatomical Collection Method Collection Time Receive d Time (Source) Location / / Volume Laterality Blood (Blood, 04/12/2019 11:36 04/12/2019 Venous) PM CDT 11:40 PM CDT Xin Vaughn M.D. LAB BLOOD ADD-ON Performing Organization Address City/[facility]/ZIP Code Phon e Number [facility] [address] [place] [address], [place] [address] [facility] Magnesium (04/12/2019 11:36 PM CDT) P athologist Signature Magnesium, S 2.3 1.7 - 2.3 04/13/2019 mg/dL 12:30 AM CDT Specimen Anatomical Collection Method Collection Time Receive d Time (Source) Location / / Volume Laterality Blood (Blood, 04/12/2019 11:36 04/12/2019 Venous) PM CDT 11:40 PM CDT Xin Vaughn M.D. LAB BLOOD ADD-ON Performing Organization Address City/State/ZIP Code Phon e Number [address] [place] [address] [facility] (ABNORMAL) CMP (Comprehensive Metabolic Panel) [...] >=60 04/13/2019 Black/ mL/min/BSA 12:30 AM CDT [place] Comment: ----ADDITIONAL INFORMATION---- Estimated GFR calculated using [...] e Number [facility] [address] [address] LAB (ABNORMAL) CBC without Differential (04/12/2019 11:36 PM CDT) [facility] Method Time Signature Hemoglobin 9.3 (L) 11.6 [...] e Number [facility] [address] [place] [address] [facility] US Lower Extremity Veins Bilateral [...] CBC without Differential (04/12/2019 8:03 PM CDT) [facility] Method Time Signature Hemoglobin 9.6 (L) 11.6 [...] e Number [facility] [address] [place] [address] [facility] (ABNORMAL) Protein/Creatinine Ratio, Random, Urine (04/12/2019 3:57 PM CDT) [facility] Method Time Signature Protein, Total, 85 mg/dL [...] e Number [facility] [address] [address] [place] [facility] (ABNORMAL) Drug Screen Urine (04/12/2019 3:57 PM CDT) athologist Signature Amphetamines, Negative Negative 04/12/2019 U 4:20 PM CDT Comment: ----ADDITIONAL INFORMATION---- Nursing Service Director's Cutoff: 500 ng/mL Barbiturates, U Negative Negative 04/12/2019 4:20 PM CDT Comment: ----ADDITIONAL INFORMATION---- Nursing Service Director's Cutoff: 200 ng/mL Benzodiazepines, U Negative Negative 04/12/2019 4:20 PM CD T Comment: ----ADDITIONAL INFORMATION---- Nursing Service Director's Cutoff: 150 ng/mL Buprenorphine, U Negative Negative 04/12/2019 4:20 PM CDT Comment: ----ADDITIONAL INFORMATION---- Nursing Service Director's Cutoff: 10 ng/mL Cocaine, U Negative Negative 04/12/2019 4:20 PM CDT Comment: ----ADDITIONAL INFORMATION---- Nursing Service Director's Cutoff: 150 ng/mL Methadone, U Negative Negative 04/12/2019 4:20 PM CDT Comment: ----ADDITIONAL INFORMATION---- Nursing Service Director's Cutoff: 200 ng/mL Methamphetamines, U Negative Negative 04/12/2019 4:20 PM C DT Comment: ----ADDITIONAL INFORMATION---- Nursing Service Director's Cutoff: 500 ng/mL Opiates, U Unconfirmed Positive (A) Negative 04/12/2019 4:2 0 PM CDT Comment: ----ADDITIONAL INFORMATION---- Nursing Service Director's Cutoff: 100 ng/mL Oxycodone, U Negative Negative 04/12/2019 4:20 PM CDT Comment: ----ADDITIONAL INFORMATION---- Nursing Service Director's Cutoff: 100 ng/mL Phencyclidine, U Negative Negative 04/12/2019 4:20 PM CDT Comment: ----ADDITIONAL INFORMATION---- Nursing Service Director's Cutoff: 25 ng/mL Propoxyphene, U Negative Negative 04/12/2019 4:20 PM CDT Comment: ----ADDITIONAL INFORMATION---- Nursing Service Director's Cutoff: 300 ng/mL Tetrahydrocannabinol, U Negative Negative 04/12/2019 4:20 PM CDT Comment: ----ADDITIONAL INFORMATION---- Nursing Service Director's Cutoff: 50 ng/mL Tricyclic Antidepressants, U Negative Negative 04/12/2019 4:20 PM CDT Comment: ----ADDITIONAL INFORMATION---- Nursing Service Director's Cutoff: 300 ng/mL THE ABOVE DRUG SCREEN PANEL IS FOR MED ICAL PURPOSES ONLY Specimen Anatomical Collection Method Collection Time Receive d Time (Source) Location / / Volume Laterality Urine (Urine, 04/12/2019 3:57 PM 04/12/20 19 3:57 Catheter) CDT PM CDT Xin Vaughn M.D. LAB URINE ORDERABLES Performing Organization Address City/State/ZIP Code Phon e Number [facility] [address] [place] [address] [place] [facility] (ABNORMAL) CBC without Differential (04/12/2019 3:48 PM CDT) [facility] Method Time Signature Hemoglobin 11.0 (L) 11.6 [...] e Number [facility] [address] [place] [address] [facility] HIV-1 p24 Ag, HIV-1/2 Ab [...] Code Phon e Number [facility] [address] [facility] [place] [address] [facility] LAB (TTE) 2D ECHO DOPPLER COLOR (04/12/2019 3:38 PM CDT) [facility] Method Time Signature Ejection Fraction 64 MC [...] effusion. 7. No previous studies available for [employer]. Procedure Note Derek Booth M.D. - 04/12/2019Form [...] effusion. 7. No previous studies available for [employer]. Findings Bedside echo performed. Transthoracic ou treach [...] person on 04/12/2019 at approximately 1:[address] [facility] [address] Hernandez and Jose. Xin CH CT [...] e Number [facility] [address] [place] [address] [facility] (ABNORMAL) CMP (Comprehensive Metabolic Panel) [...] PM CDT eGFR-Black/Afri >90 >=60 04/12/2019 can [place] mL/min/BSA 1:49 PM CDT Comment: ----ADDITIONAL INFORMATION---- [...] e Number [facility] [address] [place] [address] [place] [facility] (ABNORMAL) CBC with Differential, Blood (04/12/2019 1:19 PM CDT) [facility] gist Method Time Signature Hemoglobin 10.2 (L) [...] Organization Address City/State/ZIP Code Phon e Number [address] [place] [address] [facility] Fibrinogen (04/12/2019 1:18 PM CDT) athologist Signature Fibrinogen, P [phone] 04/12/2019 mg/dL 4:18 PM CDT Specimen Anatomical Collection Method Collection Time Receive d Time (Source) Location / / Volume Laterality Blood (Blood, 04/12/2019 1:18 PM 04/12/20 19 4:11 Venous) CDT PM CDT Xin Vaughn M.D. LAB BLOOD ADD-ON Performing Organization Address City/State/ZIP Code Phon e Number [address] [place] [address] [facility] PT (Prothrombin Time) with INR [...] Phon e Number [facility] [place] [address] [facility] DX Abdomen Portable Anterior Posterior [...] . Xin Vaughn M.D. IMG DIAGNOSTIC IMAGING [facility] Pathology Services (04/12/2019 10:20 AM CDT) Component Value Ref Test Analysis Performed At [facility] Method Time Signature PATHOLOGY Patient Name: PUNEET CLAYTON [facility] MR#: [id number] [facility] Submitting Physician: XIN VAUGHN MD [id number] Specimen #[id number] Performing Lab: ??[facility] ? [address] [place], [place] [id number] Source: Placenta Gross Description Received is a [...] taken of the and maternal surfaces and pharmaceutical sales representative sections are subm itted as [...] City/State/ZIP Code Phon e Number [place] [place] [address] [address] Testing Location (04/12/2019 9:42 AM CDT) P athologist Signature Testing [facility] DEFAULT 04/12/2019 Location 9:47 AM CDT Specimen Anatomical Collection Method Collection Time Receive d Time (Source) Location / / Volume Laterality Blood 04/12/2019 9:42 AM 9 9:47 CDT AM CDT Xin Vaughn M.D. LAB BLOOD BANK TEST ORDERABL ES Performing Organization Address City/[facility]/ZIP Code Phon e Number [facility] [address] [address] LAB Type and Screen (with reflex Antibody ID) (04/12/2019 9:42 AM CDT) [facility] Method Time Signature ABO Group A 04/12/2019 [...] BANK TEST ORDERABL ES Performing Organization Address City/[facility]/ZIP Code Phon e Number [facility] [address] [place] [address] [place] [facility] Hepatitis B Surface Antigen (04/12/2019 9:41 AM CDT) [facility] Method Time Signature HBs Antigen, Nonreactive Nonreactive [...] Code Phon e Number [facility] [address] [place] [address] [place] [address] [facility] LAB HBc Total Ab, Serum [...] Vaughn M.D. LAB MICROBIOLOGY - BLOOD ORD [place] [employer] Performing Organization Address [facility] Phon e Number [address] [place] [address] [facility] LAB HBs Antibody, Serum (04/12/2019 [...] - BLOOD ORD ERARISA Performing Organization Address [facility] Phon e Number [address] [place] [address] [facility] LAB documented in this encounter [...] Bernal R.N.)1501 (Given - Provider: Shiela Bernal R.N.)2049 (Given - Provider: Marsha Enamorado R.N.) 0206 (Given - Provider: Marsha Enamorado R.N.)0812 (Given - Provider: Cornelia Ritchie R.N.)4396 (Given - Provider: Cornelia Ritchie R.N.)2158 (Given [...] mg of calcium, oral, Every 2 hour HI N, indigestion, Starting Wed04/12/19 at 1356, Post-, [...] Enamorado R.N.)0900 (See Alternative - Provider: Cornelia Ritchei R.N.)1312 (See Alternative - Provider: Cornelia Rithcie R.N.) 10 mg, oral, Every 4 hours [...] (TUCKS) 1 application, topical, 3 times daily HI N, irritation, or pain., Starting Wed04/12/19 at [...] documented as of this encounter Care Teams Civil Division Deputy Sheriff Relationship Specialty Start Date End Date Blaire Bundy P.A.-C. PCP - General 02/04/17 04/26/19 documented as of this encounter
--- OUTSIDE RECORDS SUMMARY | 2022-07-29 08:26 | XMS_ITS | Encounter Summary ---
:1985 Author Organization [facility] Address [address] [place] [address] Care Team Providers Name Role Phone Alberto Locke M.D. Primary Care Provider Reason for Referral Outpatient (Routine) - Closed Specialty Diagnoses / Procedures Referred By Contact Refer red To Contact Family Medicine Alberto Locke M.D. [address] [place], [place] [address] Referral ID Status Reason Start Date Expiration Date Visits Requ ested Visits Authorized [id number] Closed 04/27/2019 04/26/2020 1 1 Scheduling Instructions Depression, anemia Reason for Visit Reason Comments Establish Care Anemia post Encounter Details Date Type Department Care Team Description 04/27/2019 Comprehensive Visit Department of Alberto Locke M.D. Anemia (HCC) (Prima ry Dx); [address] Wall Hypotension; [facility], Abuse Tobacco Smoking; in [place], [place] Body Mass Index 50.0 To 59.9 Adult ([facility]); [place] [address] Depression Major Recurrent ([facility]) [address] [facility] [phone] [place] (Work) [address] [phone] Social History Tobacco Use Types Packs/Day Years [...] How often do you attend mosque or amish More than 4 time s [...] She will discus permanent sterilization at upcoming ACDS BLOCK 1 OPERATOR follow up. Patient Active Problem List Diagnosis ??? Body Mass Index 50.0 To 59.9 Adult ([facility]) ??? Abuse Tobacco Smoking ??? Migraine Headache ??? Apnea Sleep Obstructive ??? Gastroesophageal Reflux Disease NOS ??? Attention Deficit With Hyperactivity Disorder ??? Depression Major Recurrent ([facility]) ??? Section Delivery ([facility]) Current Outpatient Medications Medication Sig [...] week Gets together: Once a week Attends amish service: 1 to 4 times per year [...] SECTION; Surgeon: Xin De Leon M.D.; Location: [facility] OR ??? ENDOSCOPIC RETROGRADE CHOLANGIOPANCREATOGRAPHY (ERCP) N/A 11/08/2017 Procedure: ENDOSCOPIC RETROGRADE CHOLANGIOPANCREATOGRAPHY; Surgeon: Rubio Baker M.D.; Location: [facility] OR ??? ESOPHAGOGASTRODUODENOSCOPY N/A 11/11/2017 Procedure: ESOPHAGOGASTRODUODENOSCOPY; Surgeon: Rubio Baker M.D.; Location: [facility] GI LAB ??? LAPAROSCOPIC APPENDECTOMY N/A 09/08/2017 Procedure: LAPAROSCOPIC APPENDECTOMY; Surgeon: Edd Moeller D.O.; Location: [facility] OR ??? LAPAROSCOPIC CHOLECYSTECTOMY WITH CHOLANGIOGRAM N/A 03/03/2018 Procedure: LAPAROSCOPIC CHOLECYSTECTOMY POSSIBLE CHOLANGIOGRAM; Surgeon: Edd Moeller D.O.; Location: [facility] OR ??? OTHER CONVERTED [...] Index 50.0 To 59.9 Adult ([facility]) Because of patient's elevated BMI recommendations were made for moderate exercise of 30 minutes fivetimes per week in the form of walking or similar activity. Diet modification recommendations included reducing portion size and increasing the amount of fruits and vegetables. She will discuss weight loss meds with LEGAL ENTITY CONTROLLER #5 Depression Major Recurrent (HCC) I will [...] Name Type Priority Associated Diagnoses Order S [facility] Outpatient Referral Routine Expec pipe: office [...] Phon e Number [facility] [address] [place], [place] [address] [place] [address] System in [place] [address] [place] documented in this encounter Visit Diagnoses Diagnosis Anemia (HCC) - Prim shonna Other Hypotension Abuse Tobacco Smoking Body Mass Index 50.0 To 59.9 Adult (HCC) Depression Major Recurrent (HCC) documented in this encounter Additional Health Concerns Assessment Noted Time PHQ-9 Depression Total Score: 7 04/07/2017 9:39 AM CDT documented as of this encounter Care Teams Manager Cardiac Cath Relationship Specialty Start Date End Date Alberto Locke M.D. PCP - General Family Medicine 04/27/19 documented as of this encounter
--- OUTSIDE RECORDS SUMMARY | 2022-07-29 08:26 | XMS_ITS | Encounter Summary ---
:1985 Author Organization [facility] Address [address] [place] [address] Care Team Providers Name Role Phone Alberto Locke M.D. Primary Care Provider Encounter Details Date Type Department Care Team Description 05/31/2019 Hospital Encounter Department of Alberto Locke M.D. Anemia Laboratory Medicine [address] Me[place] st[place] (HCC) in [place], [place] [address] [place] [address] [place], [place] [phone] [address] (Work) [phone] Social History Tobacco Use Types Packs/Day Years [...] How often do you attend samaritan or rastafarian More than 4 time s [...] Phon e Number [facility]- [address] [place] [address] [address] [place] [address] System in [place] [facility] Lopezvard documented in this encounter Visit Diagnoses Diagnosis Anemia (HCC) documented in this encounter Additional Health Concerns Assessment Noted Time PHQ-9 Depression Total Score: 3 05/30/2019 10:59 AM CD T documented as of this encounter Care Teams Conservator Artifacts Relationship Specialty Start Date End Date Alberto Locke M.D. PCP - General Family Medicine 04/27/19 documented as of this encounter
--- OUTSIDE RECORDS SUMMARY | 2022-07-29 08:26 | XMS_ITS | Encounter Summary ---
:1985 Author Organization [facility] Address [address] [place] [address] Care Team Providers Name Role Phone Blaire Bundy P.A.-C. Primary Care Provider Encounter Details Date Type Department Care Team Description 04/13/2019 Clinical Communication Department of Dawna Madera Obstetrics and Adelita Reddy Gynecology in [address] [address] [place] [phone] Social History Tobacco Use Types Packs/Day Years [...] as of this encounter Care Teams Technical Maintenance Technician Relationship Specialty Start Date End Date Blaire Bundy P.A.-C. PCP - General 02/04/17 04/26/19 documented as of this encounter
--- OUTSIDE RECORDS SUMMARY | 2022-07-29 08:26 | XMS_ITS | Encounter Summary ---
:1985 Author Organization [facility] Address [address] [place] [address] Care Team Providers Name Role Phone Alberto Locke M.D. Primary Care Provider Reason for Visit Reason Comments Care 6 week check Outpatient (Routine) - Closed Specialty Diagnoses / Procedures Referred By Contact Refer red To Contact Obstetrics and Diagnoses Section Delivery (HCC) Harleen Josue D.O. [facility] Gynecology [address] [place] [address] Referral ID Status Reason Start Date Expiration Date Visits Requ ested Visits Authorized [id number] Closed 04/15/2019 04/14/2020 1 1 Encounter Details Date Type Department Care Team Description 05/30/2019 Office Visit Department of Leonora Reaves, Care Postpar fercho ([facility]) (Primary Dx); Obstetrics and LOAD OUT WORKER, C.N.P. Section Delivery ([facility]); Gynecology in [address] [place] [address] [address] [place], [place] [phone] [address] (Work) [phone] Social History Tobacco Use Types Packs/Day Years [...] in this encounter Progress Notes Leonora Reaves, LOAD OUT WORKER, C.N.P. - 05/30/2019 11:00 AM CDT SUBJECTIVE [...] SECTION; Surgeon: Xin De Leon M.D.; Location: [facility] OR ??? ENDOSCOPIC RETROGRADE CHOLANGIOPANCREATOGRAPHY (ERCP) N/A 11/08/2017 Procedure: ENDOSCOPIC RETROGRADE CHOLANGIOPANCREATOGRAPHY; Surgeon: Rubio Baker M.D.; Location: [facility] OR ??? ESOPHAGOGASTRODUODENOSCOPY N/A 11/11/2017 Procedure: ESOPHAGOGASTRODUODENOSCOPY; Surgeon: Rubio Baker M.D.; Location: [facility] GI LAB ??? LAPAROSCOPIC APPENDECTOMY N/A 09/08/2017 Procedure: LAPAROSCOPIC APPENDECTOMY; Surgeon: Edd Moeller D.O.; Location: [facility] OR ??? LAPAROSCOPIC CHOLECYSTECTOMY WITH CHOLANGIOGRAM N/A 03/03/2018 Procedure: LAPAROSCOPIC CHOLECYSTECTOMY POSSIBLE CHOLANGIOGRAM; Surgeon: Edd Moeller D.O.; [facility] abstinent at this time. Consult placed to [facility] DIRECTOR PEDIATRIC #2 Section Delivery (HCC) Mackenzie type rash [...] as of this encounter Care Teams Superintendent Factory Relationship Specialty Start Date End Date Alberto Locke M.D. PCP - General Family Medicine 04/27/19 documented as of this encounter
--- OUTSIDE RECORDS SUMMARY | 2022-07-29 08:26 | XMS_ITS | Encounter Summary ---
:1985 Author Organization [facility] Address [address] [place] [address] Care Team Providers Name Role Phone Blaire [...] How often do you attend taoist or denominational More than 4 time s [...] seen for a Consultation on 04/17/19 at [facility] class for weight and feeding check. [...] consult at [facility] class as desired. Hoda Coekr R.N., BryceC. documented in this encounter Plan of Treatment Not on filedocumented as of this encounter Visit Diagnoses Not on filedocumented in this encounter Additional Health Concerns Assessment Noted Time PHQ-9 Depression Total Score: 7 04/07/2017 9:39 AM CDT documented as of this encounter Care Teams Zipper Slide Attacher Relationship Specialty Start Date End Date Blaire Bundy P.A.-C. PCP - General 02/04/17 04/26/19 documented as of this encounter
--- OUTSIDE RECORDS SUMMARY | 2022-07-29 08:26 | XMS_ITS | Encounter Summary ---
:1985 Author Organization [facility] Address [address] [place] [address] Care Team Providers Name Role Phone Blaire Bundy P.A.-C. Primary Care Provider [phone] Reason for Referral Outpatient (Routine) - Closed Specialty Diagnoses / Procedures Referred By Contact Refer red To Contact Obstetrics and Diagnoses PAR Melany Montoya [facility] Gynecology CHRISTOPH RIVERO, M.S.N., B.S.N., R.N. [address] [facility] [place] [address] Referral ID Status Reason Start Date Expiration Date Visits Requ ested Visits Authorized [id number] Closed 04/19/2019 04/18/2020 1 1 Scheduling Instructions Add to my schedule 0815 Reason for Visit Reason Comments Post-op Visit Encounter Details Date Type Department Care Team Description 04/19/2019 Office Visit Department of Melany Montoya, S ection Obstetrics and CHRISTOPH RIVERO, Delivery ([facility] ) Gynecology in [facility] M.S.NBrittaney, B.S.N., (Primar y Dx) [place], [place] R.N. [address] [facility] [address] [facility] [place] [address] [phone] Social History Tobacco Use Types Packs/Day Years [...] How often do you attend sabianist or baptism More than 4 time s [...] documented as of this encounter Care Teams Igniter Assembler Relationship Specialty Start Date End Date Blaire Bundy P.A.-C. PCP - General 02/04/17 04/26/19 documented as of this encounter
--- OUTSIDE RECORDS SUMMARY | 2022-07-29 08:26 | XMS_ITS | Encounter Summary ---
:1985 Author Organization [facility] Address [address] [place] [address] Care Team Providers Name Role Phone Blaire Bundy P.A.-C. Primary Care Provider [phone] Reason for Visit Reason Comments Post-op Visit Outpatient (Routine) - Closed Specialty Diagnoses / Procedures Referred By Contact Refer red To Contact Obstetrics and Diagnoses PAR Melany Montoya [facility] Gynecology SUBSTANCE ABUSE THERAPIST, CHRISTOPH, M.S.N., B.S.N., R.N. [address] [place] [address] Referral ID Status Reason Start Date Expiration Date Visits Requ ested Visits Authorized [id number] Closed 04/19/2019 04/18/2020 1 1 Encounter Details Date Type Department Care Team Description 04/20/2019 Office Visit Department of Melany Montoya, S ection Obstetrics and JOSEFA, CHRISTOPH, Delivery ([facility] ) Gynecology in [facility] M.S.N., B.S.N., (Primar y Dx) [place], [place] R.N. [address] [facility] [address] [place] [address] Social History Tobacco Use [...] as of this encounter Care Teams Environmental Planning Engineer Relationship Specialty Start Date End Date Blaire Bundy P.A.-C. PCP - General 02/04/17 04/26/19 documented as of this encounter
--- OUTSIDE RECORDS SUMMARY | 2022-07-29 08:26 | XMS_ITS | Encounter Summary ---
:1985 Author Organization [facility] Address [address] [place] [address] Care Team Providers Name Role Phone Blaire Bundy P.A.-C. Primary Care Provider [phone] Reason for Visit Auth/Cert Specialty Diagnoses / Procedures Referred By Contact Refer red To Contact Diagnoses Precipitate Labor (HCC) Procedures x Referral ID Status Reason Start Date Expiration Date Visits Requ ested Visits Authorized [id number] 1 1 Encounter Details Date Type Department Care Team Description 04/12/2019 Anesthesia Event [facility] MAIN OR Alfonso Schmitz M.D., J.D. [address] [place] [address] 701 Alfonso Tang, CUBING MACHINE TENDER, SENIOR ENERGY MARKET COORDINATOR [address] [facility] [place] [address] [place] [address] Anesthesia Record Procedure Summary Procedure [...] h andoff to the receiving staff during [facility] ch we 1. Identified the [...] 1418 by Abdomen; and Antionette Marcos, R.N. Jijk-Wcjbgh-Nrai groun dermabond; DRSG DOUBLE CORNER CUTTER d, Schedulin g WND ADH NEONAT 2X3.75 Automated Batch Job (x3); 05/13/21 (Removed by background completion utility); 1418 (Removed by background completion utility) (RETIRED) Incision 03/03/18; 0953; 03/03/18 0953 by 05/13/21 141 8 by Abdomen; dermabond; Darius Castro RBrittaneyN. [facility] aktalina-Backgroun SPNG DRSG DOUBLE CORNER CUTTER GZ STRL d, Schedul ing 8PLY 2X2; [...] Fetzer, Megan J RRoverto Time: 1007 (created SENIOR ENERGY MARKET COORDINATOR via procedure documentation); Mask Ventilation: Not attempted; Type: Standard ETT; Single Lumen Tube Size: 7 mm; Cuffed: Yes; Location: Oral; Removal Date: 05/19/21 (Not present upon arrival to ED) (RETIRED) Incision 04/12/19; 1041; 04/12/19 1041 by 05/13/21 141 8 by Abdomen; [facility] Sarah Solis, [facility]-Backgroun SURG ADH 3.5X12 (x1); R.N. d, Schedul ing 05/13/21 (Removed by Automated [facility] Job background completion utility); 1418 (Removed [...] Procedure Summary Date: 04/12/19 Room / Location: [facility] 1401 / [facility] GI Anesthesia Start: 1003 Anesthesia Stop: [...] 04/12/19 1003 Procedure: SECTION (N/A ) Location: [address] 1401 / [facility] Surgeon: Xin De Leon M.D. Pertinent components [...] Bonner CRNA RBrittaneyNBrittaney - 07/14/2019 1:05 PM CAREER SPECIALIST Addendum created 07/14/19 1305 by Alfonso Bonner CRNA, R.NBrittaney Care Path modified ER SPECIALIST Addendum Note - Alfonso Bonner CRNA RRoverto [...] documented as of this encounter Care Teams Bell Clerk Relationship Specialty Start Date End Date Blaire Bundy P.A.-C. PCP - General 02/04/17 04/26/19 documented as of this encounter
--- OUTSIDE RECORDS SUMMARY | 2022-07-29 08:27 | XMS_ITS | Encounter Summary ---
:1985 Author Organization [facility] Address [address] [place] [address] Care Team Providers Name Role Phone Blaire Bundy P.A.-C. Primary Care Provider [phone] Reason for Visit Auth/Cert Specialty Diagnoses / Procedures Referred By Contact Refer red To Contact Diagnoses Gallstone With Common Bile Duct Stone Procedures [place] LAPAROSCOPY CHOLECYST W CHOLNG LAPAROSCOPIC CHOLECYSTECTOMY WITH CHOLANGIOGRAM Referral ID Status Reason Start Date Expiration Date Visits Requ ested Visits Authorized [id number] 1 1 Encounter Details Date Type Department Care Team Description 03/03/2018 Anesthesia Event [facility] MAIN OR Matthew Plascencia M.D. [facility] [address] [facility] [place] [address] [place] [place] [phone] [address] (Wo rk) Anesthesia Record Procedure Summary [...] by and dermabond; Antionette Cooper CRT, R.N. [facility]-Backgroun WND ADH NEONAT 2X3.75 d, Schedul ing [...] 1015 by Placement Time: 0837 Rosalee Xiong, RAISIN SEPARATOR OPERATOR, Rosalee Xiong, RAISIN SEPARATOR OPERATOR, (created via procedure TAGMAN TAGMAN documentation); Mask Ventilation: Oral/Nasal airway needed; Type: Standard ETT; Single Lumen Tube Size: 7 mm; Cuffed: Yes; Location: Oral; Removal Date: 03/03/18; Removal Time: 1015 (RETIRED) Incision 03/03/18; 952; Abdomen; 03/03/18 0953 by 1418 by Darius Coyle CRT, R.N. May s-Aubizp-Tprsbpmwl GZ STRL 8PLY 2X2; d, Scheduling 05/13/21 (Removed by Automated [facility] Job background completion utility); 1418 (Removed [...] How often do you attend buddhist or mandaen More than 4 time s [...] Date: 03/03/18 Room / Location: OR 03 [facility] 1404 / [facility] OR Anesthesia Start: 826 Anesthesia Stop: [...] patient / legal guardian, or through an precision lens technician; patient evaluated and approved for anesthesia [...] no complications Procedure Note Rosalee Xiong, JOSEFA, TAGMAN - 03/03/2018 8 :54 AM CDT Airway [...] documented as of this encounter Care Teams Dish Technician Relationship Specialty Start Date End Date Blaire Bundy P.A.-C. PCP - General 02/04/17 04/26/19 documented as of this encounter
--- OUTSIDE RECORDS SUMMARY | 2022-07-29 08:27 | XMS_ITS | Encounter Summary ---
:1985 Author Organization [facility] Address [address] [place] [address] Care Team Providers Name Role Phone Blaire Bundy P.A.-C. Primary Care Provider [phone] Encounter Details Date Type Department Care Team Description 07/20/2018 Hospital Encounter Department of Marisol Irving Contrace ption Personal Laboratory Medicine HEAD MACHINE FEEDER, C.N.P. History in [address] [address] [place], [place] [phone] [address] (Work) [phone] Social History Tobacco Use Types Packs/Day Years [...] How often do you attend muslim or jehovah's witness More than 4 time [...] Results for this POCT, U (LAB) AM MANAGER COMPLIANCE History procedure are in the results section. documented in this encounter Results Test, POCT, Urine (lab) (07/20/2018 10:24 AM MANAGER COMPLIANCE) P athologist Signature Negative 07/20/2018 [facility] Test, POCT, U 10:31 AM MANAGER COMPLIANCE [facility] Specimen Anatomical Collection Method Collection Time Receive d Time (Source) Location / / Volume Laterality Urine (Urine, 07/20/2018 10:24 07/20/2018 Clean Catch) AM MANAGER COMPLIANCE 10:24 AM MANAGER COMPLIANCE Marisol Irving APRN, C.N.P. LAB POCT ORDERABLES - DEVICE Performing Organization Address City/State/ZIP Code Phon e Number [facility] [address] [place] [address] [place] [address] [facility] documented in this encounter Visit Diagnoses Diagnosis Contraception Personal History documented in this encounter Additional Health Concerns Assessment Noted Time PHQ-9 Depression Total Score: 7 04/07/2017 9:39 AM CDT documented as of this encounter Care Teams Gill Net Stringer Relationship Specialty Start Date End Date Blaire Bundy P.A.-C. PCP - General 02/04/17 04/26/19 documented as of this encounter
--- OUTSIDE RECORDS SUMMARY | 2022-07-29 08:27 | XMS_ITS | Encounter Summary ---
:1985 Author Organization [facility] Address [address] [place] [address] Care Team Providers Name Role Phone Blaire Bundy P.A.-C. Primary Care Provider [phone] Reason for Visit Outpatient (Routine) - Closed Specialty Diagnoses / Procedures Referred By Contact Refer red To Contact Diagnoses Gallstone With Common Bile Duct Stone Edd Moeller D.O. [address] [address] Referral ID Status Reason Start Date Expiration Date Visits Requ ested Visits Authorized [id number] Closed 02/09/2018 02/09/2019 1 1 Encounter Details Date Type Department Care Team Description 02/11/2018 Telemedicine Department of General Edd Moeller eamargaritathetic Medical Exam (Primary Dx); Surgery in Jason Rivera D.O. Gallstone With Common Bile Duct Stone [address] [place] [address] [place], [place] [phone] (Work) [phone] Social History Tobacco Use Types Packs/Day Years [...] How often do you attend christian or hinduism More than 4 time s per year 07/09/2020 services? Do you belong to any clubs or organizations No 04/19/2019 such as christian groups, unions, fraTargeted Technologies or athletic groups, or school groups? How [...] - 02/11/2018 10:00 AM CDT Surgical Nurse Customer Service Teller Skin Alert Assessment: Complete this section only [...] lying flat? no Do you have any hinduism or other objection to having a blood transfusion? no Teaching: Preoperative education was done with (x) patient (_) parent (_) other. _ It was confirmed the patient/family member had received the following preoperative education sheets:Checklist For Surgical Patients ([id number]),???Surgical Site Infections ([id number]), Speak Up: Antibiotics ([id number]), ???Smoke Free, Advice for patients and visitors?? ([id number]), ???Your Guide to Pain Management ([id number]), Managing Your Pain After Surgery ([id number]) with the ???Healing [employer]?? pamphlet ([id number]), and ???Appointments Required Before Your Surgery?? ([facility] [id number]). These were reviewed in detail. Additional Pamphlets also reviewed: (_)?? Parental Presence in the Operating Room?? ([facility]:Order Sets/Surgery/Home Instructions/Tonsillectomy Teaching Checklist/PE Tubes [...] 1st po with surgeon or physician assistant director of nursing: (x) made (_)TBD (_)Audiology appointment (PE tubes), [...] documented as of this encounter Care Teams Prefitter Relationship Specialty Start Date End Date Blaire Bundy P.A.-C. PCP - General 02/04/17 04/26/19 documented as of this encounter
--- OUTSIDE RECORDS SUMMARY | 2022-07-29 08:27 | XMS_ITS | Encounter Summary ---
:1985 Author Organization [facility] Address [address] [place] [address] Care Team Providers Name Role Phone Blaire Bundy P.A.-C. Primary Care Provider [phone] Reason for Referral Outpatient (Routine) - Closed Specialty Diagnoses / Procedures Referred By Contact Refer red To Contact Diagnoses Gallstone Edd Moeller D.O. [facility] Region Procedures [place] Fluoro Less Than 1 Hour [place] FLUOROSCOPY EXAM UP TO 1 HR HC FLUOROSCOPY EXAM UP TO 1 HR [place] FLUOROSCOPY EXAM UP TO 1 HR [address] [address] Referral ID Status Reason Start Date Expiration Date Visits Requ ested Visits Authorized [id number] Closed 03/03/2018 03/03/2019 1 1 Reason for Visit Auth/Cert Specialty Diagnoses / Procedures Referred By Contact Refer red To Contact Diagnoses Gallstone With Common Bile Duct Stone Procedures [place] LAPAROSCOPY CHOLECYST W CHOLNG LAPAROSCOPIC CHOLECYSTECTOMY WITH CHOLANGIOGRAM Referral ID Status Reason Start Date Expiration Date Visits Requ ested Visits Authorized [id number] 1 1 Encounter Details Date Type Department Care Team Description 03/03/2018 Hospital Encounter Department of Radiology Raphael Moeller, Gallstone in ArbonTerese D.O. [address] [place] [address] [place] [place] [address] [phone] (Wo rk) Social History Tobacco Use Types [...] How often do you attend nondenominational or lutheran More than 4 time s [...] Time Received Time / Laterality Volume Narrative [id number] - 03/03/2018 10:01 AM CDT This exam does not require a radiologist review or interpretation. Please refer to the patient? s medical record on this date for clinical details. Edd CH FLUOROSCOPY PROCEDURES Performing Organization Address City/State/ZIP Code Phon e Number [id number] NA documented in this encounter Visit Diagnoses Diagnosis Gallstone documented in this encounter Additional Health Concerns Assessment Noted Time PHQ-9 Depression Total Score: 7 04/07/2017 9:39 AM CDT documented as of this encounter Care Teams Rack Production Worker Relationship Specialty Start Date End Date Blaire Bundy P.A.-C. PCP - General 02/04/17 04/26/19 documented as of this encounter
--- OUTSIDE RECORDS SUMMARY | 2022-07-29 08:27 | XMS_ITS | Encounter Summary ---
:1985 Author Organization [facility] Address [address] [place] [address] Care Team Providers Name Role Phone Blaire Bundy P.A.-C. Primary Care Provider [phone] Encounter Details Date Type Department Care Team Description 07/21/2018 Orders Only Department of Obstetrics Leonora Reaves A PRN, and Gynecology in [address] [address] [place] [address] [phone] Social History Tobacco Use Types Packs/Day Years [...] How often do you attend druze or methodist More than 4 time s [...] documented as of this encounter Care Teams Running Rigger Relationship Specialty Start Date End Date Blaire Bundy P.A.-C. PCP - General 02/04/17 04/26/19 documented as of this encounter
--- OUTSIDE RECORDS SUMMARY | 2022-07-29 08:27 | XMS_ITS | Encounter Summary ---
:1985 Author Organization [facility] Address [address] [place] [address] Care Team Providers Name Role Phone Blaire Bundy P.A.-C. Primary Care Provider [phone] Encounter Details Date Type Department Care Team Description 07/21/2018 Orders Only Department of Leonora Reaves, Morbid Obesi ty Body Obstetrics and DISTRIBUTED GENERATION PROJECT MANAGER, C.N.P. Mass Index 50.0-59.9 Gynecology in [facility] [address] Adult (HCC) ([place], [place] Dx) [address] [place] [address] [place], [place] [phone] [address] (Work) [phone] Social History Tobacco Use Types Packs/Day Years [...] How often do you attend jain or amish More than 4 time s [...] as of this encounter Care Teams Air Conditioning Technician Relationship Specialty Start Date End Date Blaire Bundy P.A.-C. PCP - General 02/04/17 04/26/19 documented as of this encounter
--- OUTSIDE RECORDS SUMMARY | 2022-07-29 08:27 | XMS_ITS | Encounter Summary ---
:1985 Author Organization [facility] Address [address] [place] [address] Care Team Providers Name Role Phone Blaire Bundy P.A.-C. Primary Care Provider [phone] Encounter Details Date Type Department Care Team Description 02/09/2018 Clinical Communication Department of General Aline Dunbar Surgery in [place], L, L.P.[address] [address] Social History Tobacco Use Types Packs/Day Years [...] How often do you attend mormon or adventism More than 4 time s [...] documented as of this encounter Care Teams Building And Grounds Supervisor Relationship Specialty Start Date End Date Blaire Bundy P.A.-C. PCP - General 02/04/17 04/26/19 documented as of this encounter
--- OUTSIDE RECORDS SUMMARY | 2022-07-29 08:27 | XMS_ITS | Encounter Summary ---
:1985 Author Organization [facility] Address [address] [place] [address] Care Team Providers Name Role Phone Blaire Bundy P.A.-C. Primary Care Provider [phone] Reason for Visit Auth/Cert Specialty Diagnoses / Procedures Referred By Contact Refer red To Contact Diagnoses Gallstone With Common Bile Duct Stone Procedures [place] LAPAROSCOPY CHOLECYST W CHOLNG LAPAROSCOPIC CHOLECYSTECTOMY WITH CHOLANGIOGRAM Referral ID Status Reason Start Date Expiration Date Visits Requ ested Visits Authorized [id number] 1 1 Encounter Details Date Type Department Care Team Description 03/03/2018 Surgery [facility] MAIN OR Jaquan Monahan LAPAROSCOPIC [address] MICHELLE P, D.O. CHOLECYSTECTOMY POSSIBLE [place], [place] [address] CHOLANGIOGRAM [address] [place] [address] Social History Tobacco Use Types [...] How often do you attend mu-ism or uatsdin More than 4 time s [...] through Care Everywhere.Home Care Following Gallbladder Surgery (Hebrew)documented in this encounter Medications at Time of [...] Role: * Jaquan Monahan D.O. - Primary Forestry Patrolman: Naye Stockton L.P.N. Anesthesia Type: General Pre-Operative [...] of these were recovered in the suction social media assistant. The gallbladder was placed in Endo-Catch bag [...] Name Type Priority Associated Diagnoses Order S [facility] General Surgery Outpatient Referral Routine Gallstone [...] Signature PATHOLOGY Patient Name: PUNEET CLAYTONBrittaney [facility] [facility] MR#: [id number] [facility] Submitting Physician: JAQUAN MONAHAN DO [id number] Specimen #[id number] Performing Lab: ??[facility] ? [address] [facility] [address] Source: Gallbladder Clinical History/Pre-Op Gallstone with common [...] trabeculated. ??The mucosal wall measures 0.2 cm. ??Field Coil Winder sections are submitted in cassette A1. KG/ps ?? Diagnosis Gallbladder, cholecystectomy: CHOLELITHIASIS. Electronically Signed By USAMA MALDONADO MD - 03/04/2018 pjs/03/04/2018 Specimen (Source) Anatomical Collection Method Collection Time Re ceived Time Location / / Volume Laterality Tissue 03/03/2018 9:54 AM (Gallbladder) CDT Jaquan Monahan D.O. LAB SURG PATH ORDERABLES Performing Organization Address City/State/ZIP Code Phon e Number [facility] LISCOM[facility] [address] [place] [address] documented in this encounter Visit Diagnoses Diagnosis [...] 843 (Given - Provider: Rosalee Desir APRN, TUB ATTENDANT) 500 mg, intravenous, at 200 mL/hr, Admin [...] 0729 (New Bag - Provider: Perri Cooper RRvoerto)0827 (Rate/Dose Verify - Provider: Rosalee Desir APRN, TUB ATTENDANT)1019 (Anesthesia Volume Adjustment - Provider: Rosalee Desir [...] 1033, Drug Monitoring Program: [facility]ist [facility] medication order based on comorbities and indication. documented in this encounter Additional Health Concerns Assessment Noted Time PHQ-9 Depression Total Score: 7 04/07/2017 9:39 AM CDT documented as of this encounter Care Teams Aoc Operations Intelligence Chief Relationship Specialty Start Date End Date Blaire Bundy P.A.-C. PCP - General 02/04/17 04/26/19 documented as of this encounter
--- OUTSIDE RECORDS SUMMARY | 2022-07-29 08:27 | XMS_ITS | Encounter Summary ---
:1985 Author Organization [facility] Address [address] [place] [address] Care Team Providers Name Role Phone Blaire Bundy P.A.-C. Primary Care Provider [phone] Encounter Details Date Type Department Care Team Description 05/11/2018 Immunization Department of Blaire Bundy P.A.-C. [address] [place], [place] [id number] Need Vaccine Pediatrics in [place] Zeinab Gong, L.P.N. [address] [place] [address] Immunization ([place], [place] Dx) [address] [place] [address] Social History Tobacco Use Types [...] How often do you attend muslim or holiness More than 4 time s [...] documented as of this encounter Care Teams Facilities Maintenance Worker Relationship Specialty Start Date End Date Blaire Bundy P.A.-C. PCP - General 02/04/17 04/26/19 documented as of this encounter
--- OUTSIDE RECORDS SUMMARY | 2022-07-29 08:27 | XMS_ITS | Encounter Summary ---
:1985 Author Organization [facility] Address [address] [place] [address] Care Team Providers Name Role Phone Blaire Bundy P.A.-C. Primary Care Provider [phone] Encounter Details Date Type Department Care Team Description 03/14/2018 Orders Only Department of Gloria Johnson High Risk Medication Orthopedic Surgery in R, D.P.M. (Primary Dx) [place], [place] [address] FABIAN [address] [place] [phone] Social History Tobacco Use Types Packs/Day Years [...] How often do you attend anglican or roman catholic More than 4 time [...] as of this encounter Care Teams Auto Mechanics Teacher Relationship Specialty Start Date End Date Blaire Bundy P.A.-C. PCP - General 02/04/17 04/26/19 documented as of this encounter
--- OUTSIDE RECORDS SUMMARY | 2022-07-29 08:27 | XMS_ITS | Encounter Summary ---
:1985 Author Organization [facility] Address [address] [place] [address] Care Team Providers Name Role Phone Blaire Bundy P.A.-C. Primary Care Provider [phone] Reason for Referral Outpatient (Routine) - Closed Specialty Diagnoses / Procedures Referred By Contact Refer red To Contact General Surgery Diagnoses Calculus Of Bile Duct Without Cholangitis Or Cholecystitis With Obstruction par review Edd Moeller, [facility] Region Procedures RAY D.O. [address] [place] [address] Referral ID Status Reason Start Date Expiration Date Visits Requ ested Visits Authorized [id number] Closed 02/11/2018 02/11/2019 1 1 Encounter Details Date Type Department Care Team Description 02/11/2018 Orders Only Department of General Keo, Lydia Ca lculus Of Bile Duct Surgery in [facility] Without Cholangitis Or [place] [facility] Cholecystitis With [address] [place], [place] Obstruction ([place] [address] Dx) [address] Social History Tobacco Use Types [...] as of this encounter Care Teams Gas Welding Equipment Mechanic Relationship Specialty Start Date End Date Blaire Bundy P.A.-C. PCP - General 02/04/17 04/26/19 documented as of this encounter
--- OUTSIDE RECORDS SUMMARY | 2022-07-29 08:27 | XMS_ITS | Encounter Summary ---
:1985 Author Organization [facility] Address [address] [place] [address] Care Team Providers Name Role Phone Blaire Bundy P.A.-C. Primary Care Provider [phone] Reason for Visit Reason Comments Contraception Appointment Request (Routine) - Closed Specialty Diagnoses / Procedures Referred By Contact Refer red To Contact Obstetrics and Diagnoses PAR REVIEW [facility] Gynecology Procedures OBG NEW KAIAWHINA KURA KAUPAPA MAORI Referral ID Status Reason Start Date Expiration Date Visits Requ ested Visits Authorized [id number] Closed 07/01/2018 07/01/2019 1 1 Encounter Details Date Type Department Care Team Description 07/20/2018 Comprehensive Visit Department of Leoonra Villaseñor Inser tion Contraceptive Subdermal (Primary Dx); Obstetrics and EARTH OBSERVATIONS CHIEF SCIENTIST, C.N.P. Morbid Obesity Body Mass Index 50.0-59.9 Adult (HCC) Gynecology in [address] [address] Social History Tobacco Use [...] How often do you attend taoist or holiness More than 4 time s [...] Comments Blood Pressure 140/90 07/20/2018 10:50 AM BUILDING PERFORMANCE CONSULTANT Pulse - - Temperature - - Respiratory Rate - - Oxygen Saturation - - Inhaled Oxygen Concentration - - Weight 142 kg (313 lb 0.9 oz) 07/20/2018 10:50 AM BUILDING PERFORMANCE CONSULTANT Height - - Body Mass Index 57.24 [...] the patient and/or decision maker.: Not addressed [facility] protocol: All relevant documentation and testing were [...] completed successfully: yes Complications: no apparent complications KAIAWHINA KURA KAUPAPA MAORI Subjective: Patient is here to discuss control [...] be positive. According to the [facility] quick start control care model she will repeat a test at home in 1-2 weeks, and return to clinic if a positive test. Backup control is advised for 1 week. She also has questions about weight loss surgery, weight loss. Consult is placed to [facility] in [place]. DING PERFORMANCE CONSULTANT documented in this encounter Plan of Treatment Not on filedocumented as of this encounter Procedures Procedure Name Priority Date/Time Associated Diagnosis Comme nts VT INS Routine 07/20/2018 11:00 Insertion Results for this NON-BIODEGRADABLE AM BUILDING PERFORMANCE CONSULTANT Contraceptive procedure are in DRUG DEL Subdermal the results section. documented in this encounter Results VT INS NON-BIODEGRADABLE DRUG DEL (07/20/2018 11:00 AM BUILDING PERFORMANCE CONSULTANT) Narrative MMODAL - 07/20/2018 11:00 AM BUILDING PERFORMANCE CONSULTANT Leonora Villaseñor, EARTH OBSERVATIONS CHIEF SCIENTIST, C.N.P. ? 07/20/2018 ??1:27 PM Subdermal Contraceptive [...] the patient and/or decision maker.: ??Not addressed [facility] protocol: ??All relevant documentation and testin g [...] 68 mg subdermal Given 07/20/2018 1:21 PM BUILDING PERFORMANCE CONSULTANT 1 each implant 1 each (NEXPLANON) 1 each, subdermal, One-Time, Starting on Wed07/20/18 at 1321, For 1 dose documented in this encounter Additional Health Concerns Assessment Noted Time PHQ-9 Depression Total Score: 7 04/07/2017 9:39 AM CDT documented as of this encounter Care Teams Party Demonstrator Relationship Specialty Start Date End Date Blaire Bundy P.A.-C. PCP - General 02/04/17 04/26/19 documented as of this encounter
--- OUTSIDE RECORDS SUMMARY | 2022-07-29 08:27 | XMS_ITS | Encounter Summary ---
:1985 Author Organization [facility] Address [address] [place] [address] Care Team Providers Name Role Phone Blaire Bundy P.A.-C. Primary Care Provider [phone] Reason for Referral Outpatient (Routine) - Closed Specialty Diagnoses / Procedures Referred By Contact Refer red To Contact General Surgery Diagnoses Gallstone With Common Bile Duct Stone par review Jaquan Monahan [facility] Region Procedures GNS POST OP D.O. [address] [place] [address] Referral ID Status Reason Start Date Expiration Date Visits Requ ested Visits Authorized [id number] Closed 03/03/2018 03/03/2019 1 1 Reason for Visit Auth/Cert Specialty Diagnoses / Procedures Referred By Contact Refer red To Contact Diagnoses Gallstone With Common Bile Duct Stone Procedures [place] LAPAROSCOPY CHOLECYST W CHOLNG LAPAROSCOPIC CHOLECYSTECTOMY WITH CHOLANGIOGRAM Referral ID Status Reason Start Date Expiration Date Visits Requ ested Visits Authorized [id number] 1 1 Encounter Details Date Type Department Care Team Description 03/03/2018 Hospital Encounter [facility] OR Jaquan Monahan With [address] VIVIANA P, D.OBrittaney Common Bile Duct [place] [address] [place] [address] [address] [phone] [place], [place] [address] Social History Tobacco Use Types Packs/Day Years [...] How often do you attend worship or yarsanism More than 4 time s [...] through Care Everywhere.Home Care Following Gallbladder Surgery (Amharic)documented in this encounter Medications at Time of [...] Role: * Jaquan Monahan D.O. - Primary Loss Prevention Representative: Naye Stockton L.P.N. Anesthesia Type: General Pre-Operative [...] of these were recovered in the suction machined parts metal sprayer. The gallbladder was placed in Endo-Catch bag [...] Implants * No implants in log * aJquan Monahan D.O. Brief Op Note - Jaquan [...] Name Type Priority Associated Diagnoses Order S [facility] Surgery Outpatient Referral Routine Gallstone With [...] [facility] MR#: [id number] LAUREL Submitting Physician: JAQUAN MONAHAN DO [id number] Specimen #[id number] Performing Lab: ??[facility] ? [address] [place] [address] Source: Gallbladder Clinical History/Pre-Op Gallstone with common [...] trabeculated. ??The mucosal wall measures 0.2 cm. ??Equipment Or Machinery Cleaner sections are submitted in cassette A1. KG/ps ?? Diagnosis Gallbladder, cholecystectomy: CHOLELITHIASIS. Electronically Signed By USAMA MALDONADO MD - 03/04/2018 pjs/03/04/2018 Specimen (Source) Anatomical Collection Method Collection Time Re ceived Time Location / / Volume Laterality Tissue 03/03/2018 9:54 AM (Gallbladder) CDT Jaquan Monahan D.O. LAB SURG PATH ORDERABLES Performing Organization Address City/State/[facility] Phon e Number [address] [address] documented in this encounter Visit Diagnoses Diagnosis [...] (FLAGYL) (COMPLETED) 843 (Given - Provider: Rosalee Deisr APRN, SUPERVISOR VEGETABLE FARMING) 500 mg, intravenous, at 200 mL/hr, Admin [...] (Rate/Dose Verify - Provider: Rosalee Desir APRN, SUPERVISOR VEGETABLE FARMING)1019 (Anesthesia Volume Adjustment - Provider: Rosalee Desir [...] 1033, Drug Monitoring Program: Pharmacist to a [facility] medication order based on comorbities and indication. documented in this encounter Additional Health Concerns Assessment Noted Time PHQ-9 Depression Total Score: 7 04/07/2017 9:39 AM CDT documented as of this encounter Care Teams Bias Machine Operator Helper Relationship Specialty Start Date End Date Blaire Bundy P.A.-C. PCP - General 02/04/17 04/26/19 documented as of this encounter
--- OUTSIDE RECORDS SUMMARY | 2022-07-29 08:27 | XMS_ITS | Encounter Summary ---
:1985 Author Organization [facility] Address [address] [place] [address] Care Team Providers Name Role Phone Blaire Bundy P.A.-C. Primary Care Provider [phone] Reason for Visit Reason Onset Date Comments assessment 07/01/2018 First call attempt Encounter Details Date Type Department Care Team Description 07/01/2018 Clinical Communication Department of Leonora Reaves Pr egnancy Obstetrics and JOSEFA C.N.PBrittaney assessment (First Gynecology in [address] call attem pt) [address] [id number] Social History Tobacco Use Types Packs/Day [...] How often do you attend gnosticism or orthodoxy More than 4 time s [...] Maurice Ivey R.N. - 07/04/2018 8:40 AM GLOBAL MOBILITY SPECIALIST Addended by: MAURICE IVEY on: 07/04/2018 08:40 AM Modules accepted: Orders AL MOBILITY SPECIALIST Telephone Encounter - Maurice Ivey R.N. - 07/04/2018 8:36 AM GLOBAL MOBILITY SPECIALIST If yes to any of the following [...] intercourse for two weeks before the procedure AL MOBILITY SPECIALIST Telephone Encounter - Jayshree Morocho R.N. - 07/01/2018 2:39 PM CST Attempted to contact pt. Left message on identifiable VM to [facility] for more information AL MOBILITY SPECIALIST Telephone Encounter - Tejal Arora - 07/01/2018 2:00 PM CST Dear Nurse, Patient is not on control and would like to have Nexplanon or an IUD placed. Is there a way you can call Carol and see if a test is needed, prior to appointment. Thank you, Tejal [employer] AL MOBILITY SPECIALIST documented in this encounter Plan of Treatment Not on filedocumented as of this encounter Results Test, POCT, Urine (lab) (07/20/2018 10:24 AM GLOBAL MOBILITY SPECIALIST) P athologist Signature Negative 07/20/2018 [facility] Test, POCT, U 10:31 AM GLOBAL MOBILITY SPECIALIST [facility] Specimen Anatomical Collection Method Collection Time Receive d Time (Source) Location / / Volume Laterality Urine (Urine, 07/20/2018 10:24 07/20/2018 Clean Catch) AM GLOBAL MOBILITY SPECIALIST 10:24 AM GLOBAL MOBILITY SPECIALIST Marisol Irving APRN C.N.P. LAB POCT ORDERABLES - DEVICE Performing Organization Address City/State/ZIP Code Phon e Number [facility] [address] [facility] [place] [address] [facility] documented in this encounter Visit Diagnoses Diagnosis Contraception Personal History - Primary documented in this encounter Additional Health Concerns Assessment Noted Time PHQ-9 Depression Total Score: 7 04/07/2017 9:39 AM CDT documented as of this encounter Care Teams Back Gray Cloth Washer Relationship Specialty Start Date End Date Blaire Bundy P.A.-C. PCP - General 02/04/17 04/26/19 documented as of this encounter
--- OUTSIDE RECORDS SUMMARY | 2022-07-29 08:27 | XMS_ITS | Encounter Summary ---
:[address] [facility] Address [address] [place] [address] Care Team Providers Name Role Phone Blaire Bundy P.A.-C. Primary Care Provider [phone] Reason for Referral Outpatient (Routine) - Closed Specialty Diagnoses / Procedures Referred By Contact Refer red To Contact Orthopedic Surgery Diagnoses Pain Toe Pain Toe Blaire Bundy [facility] Procedures ORS CONS FOOT POD P.A.-C. [address] [place], [place] [address] Referral ID Status Reason Start Date Expiration Date Visits Requ ested Visits Authorized [id number] Closed 02/18/2018 02/18/2019 1 1 Scheduling Instructions [...] Cholecystitis With Obstruction par review Edd Moeller [facility] Procedures RAY D.O. [address] [place] [address] Referral ID Status Reason Start Date Expiration Date Visits Requ ested Visits Authorized [id number] Closed 02/11/2018 02/11/2019 1 1 Encounter Details Date Type Department Care Team Description 02/18/2018 Office Visit Department of Family Blaire Bundy perative Exam (Primary Dx); MedicineFlorentino P.A.-C. 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; [facility] [address] Elvis Swenson Gallstone With Common Bile Duct [place]; [place], [place] Anemia Pos themorrhagic Acute; [place] [address] [place] [address] [phone] [place], [place] (Work) [phone] Social History Tobacco Use [...] How often do you attend restorationist or congregational More than 4 time s [...] having a cholecystomy with Dr. Moeller in [place] on 03/03/2018. The patient notes she continues [...] 59.9 Adult ([facility]) ??? Abuse Tobacco Smoking- [...] CHOLANGIOPANCREATOGRAPHY; Surgeon: Rubio Baker M.D.; Location: [facility] OR ??? ESOPHAGOGASTRODUODENOSCOPY N/A 11/11/2017 Procedure: ESOPHAGOGASTRODUODENOSCOPY; Surgeon: Rubio Baker M.D.; Location: [facility] GI LAB ??? LAPAROSCOPIC APPENDECTOMY N/A 09/08/2017 Procedure: LAPAROSCOPIC APPENDECTOMY; Surgeon: Edd Moeller D.O.; Location: [facility] OR ??? OTHER CONVERTED SHX (SEE [...] with Differential, Blood (02/18/2018 10:42 AM CDT) [facility] Method Time Signature Hemoglobin 11.3 (L) 11.6 - 02/18/2018 [facility] 15.0 g/dL 10:54 AM [facility] Hematocrit 37.3 35.5 - 02/18/2018 [facility] 44.9 % 10:54 AM [facility] Erythrocytes 4.95 3.92 - 02/18/2018 [facility] 5.13 10:54 AM CDT [facility]ALTH x10(12)/[facility] MCV 75.4 (L) 78.2 - 02/18/2018 [facility] 97.9 fL 10:54 AM [facility] RBC Distrib Width 15.3 12.2 - 02/18/2018 [facility] 16.1 % 10:[address] [facility] Platelet Count 285 157 - 371 02/18/2018 [facility] x10(9)/L 10:[address] [facility] Leukocytes 7.0 3.4 - 9.6 02/18/2018 [facility] x10(9)/L 10:54 AM [facility] Neutrophils 4.71 1.56 - 02/18/2018 [facility] 6.45 10:54 AM CDT HEALTH x10(9)/L [facility] Lymphocytes 1.76 0.95 - 02/18/2018 [facility] 3.07 10:54 AM CDT HEALTH x10(9)/L [facility] Monocytes 0.35 0.26 - 02/18/2018 [facility] 0.81 10:54 AM CDT [employer] x10(9)/L [facility] Eosinophils 0.18 0.03 - 02/18/2018 [facility] 0.48 10:54 AM CDT [employer] x10(9)/L [facility] Basophils 0.03 0.01 - 02/18/2018 [facility] 0.08 10:54 AM T [employer] x10(9)/L [facility] Specimen Anatomical Collection Method Collection Time Receive d Time (Source) Location / / Volume Laterality Blood (Blood, 02/18/2018 10:42 02/18/2018 Venous) AM CDT 10:46 AM CDT Edd Moeller D.O. LAB BLOOD ADD-ON Performing Organization Address City/State/ZIP Code Phon e Number [facility] [address] [place] [address] [facility] documented in this encounter Visit Diagnoses Diagnosis Preoperative Exam - Primary 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 Gallstone With Common Bile Duct [place] Anemia Posthemorrhagic Acute (Blood Loss Anemia) Pain Toe documented in this encounter Additional Health Concerns Assessment Noted Time PHQ-9 Depression Total Score: 7 04/07/2017 9:39 AM CDT documented as of this encounter Care Teams Glaze Wiper Relationship Specialty Start Date End Date Blaire Bundy P.A.-C. PCP - General 02/04/17 04/26/19 documented as of this encounter
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
--- OUTSIDE RECORDS SUMMARY | 2022-07-29 08:27 | XMS_ITS | Encounter Summary ---
:1985 Author Organization [facility] Address [address] [place] [address] Care Team Providers Name Role Phone Blaire [...] Diagnoses Pain Toe Pain Toe Blaire Bundy, [facility] Procedures ORS CONS FOOT POD P.A.-C. [address] [place], [place] [address] Referral ID Status Reason Start Date Expiration Date Visits Requ ested Visits Authorized [id number] Closed 02/18/2018 02/18/2019 1 1 Encounter Details Date Type Department Care Team Description 03/14/2018 Comprehensive Visit Department of Riccardo Cottrell, Ingrown Nail (Primary Dx); Orthopedic Surgery Mickey Nuñez Pain Toe; in [place], [facility] [address] FABIAN Onychomycosis; [place], [place] High Risk Medication [address] [place] [address] [place], [place] [phone] [address] (Work) [phone] Social History Tobacco Use Types Packs/Day Years [...] How often do you attend worship or uatsdin More than 4 time s [...] 10:04 AM Onychomycos is Results for this [facility] [place], [place] T High Risk Medication procedu re are in the results section. documented in this encounter Results (ABNORMAL) Hepatic Function Panel (03/14/2018 10:04 AM CDT) [facility] Method Time Signature Bilirubin, Total, S 0.9 <=1.2 03/14/2018 [facility] mg/dL 10:53 AM T [facility] [place] [facility] Bilirubin, Direct, S 0.2 0.0 - 0.3 03/14/2018 [facility] mg/dL 10:53 AM [facility] Aspartate 18 8 - 43 03/14/2018 [facility] Aminotransferase U/L 10:53 AM [facility] Alanine 15 7 - 45 03/14/2018 [facility] Aminotransferase U/L 10:53 AM [facility] Alkaline 69 37 - 98 03/14/2018 [facility] Phosphatase, S U/L 10:53 AM T [facility] Albumin, S 3.5 3.5 - 5.0 03/14/2018 [facility] g/dL 10:53 AM CDT [facility] Protein, Total, S 6.2 (L) 6.3 - 7.9 03/14/2018 [facility] g/dL 10:53 AM T [facility] Specimen Anatomical Collection Method Collection Time Receive d Time (Source) Location / / Volume Laterality Blood (Blood, 03/14/2018 10:04 03/14/2018 Venous) AM CDT 10:09 AM CDT Gloria Johnson D.P.M. LAB BLOOD ADD-ON Performing Organization Address City/State/[facility] Code Phon e Number [facility] [address] [address] [place] [facility] documented in this encounter Visit Diagnoses Diagnosis Ingrown Nail - Primary Pain Toe Onychomycosis High Risk Medication documented in this encounter Additional Health Concerns Assessment Noted Time PHQ-9 Depression Total Score: 7 04/07/2017 9:39 AM CDT documented as of this encounter Care Teams Fork Repairer Relationship Specialty Start Date End Date Blaire Bundy P.A.-C. PCP - General 02/04/17 04/26/19 documented as of this encounter
--- OUTSIDE RECORDS SUMMARY | 2022-07-29 08:27 | XMS_ITS | Encounter Summary ---
:1985 [address] [facility] Address [address] [place] [address] Care Team Providers Name Role Phone Blaire Bundy P.A.-C. Primary Care Provider [phone] Reason for Visit Reason Comments Post-op Lap emma 03/03/18 Outpatient (Routine) - Closed Specialty Diagnoses / Procedures Referred By Contact Refer red To Contact General Surgery Diagnoses Gallstone With Common Bile Duct Stone par review Edd Moeller, [facility] Procedures GNS POST OP D[address]O. [address] [place] [address] Referral ID Status Reason Start Date Expiration Date Visits Requ ested Visits Authorized [id number] Closed 03/03/2018 03/03/2019 1 1 Encounter Details Date Type Department Care Team Description 03/16/2018 Office Visit Department of General Edd Moeller Ga llstone With Common Surgery in Jason Rivera D.O. Bile Duct Stone [place] [address] [facility] [address] [place] [address] [place] [phone] [address] (Work) [phone] Social History Tobacco Use Types Packs/Day Years [...] often do you attend jehovah's witness or shinto More than 4 time s [...] happy to reevaluate as needed Job ID: [id number] documented in this encounter Plan of Treatment Not on filedocumented as of this encounter Visit Diagnoses Diagnosis Gallstone With Common Bile Duct Stone documented in this encounter Additional Health Concerns Assessment Noted Time PHQ-9 Depression Total Score: 7 04/07/2017 9:39 AM CDT documented as of this encounter Care Teams Product Management Specialist Relationship Specialty Start Date End Date Blaire Bundy P.A.-C. PCP - General 02/04/17 04/26/19 documented as of this encounter
--- OUTSIDE RECORDS SUMMARY | 2022-07-29 08:27 | XMS_ITS | Encounter Summary ---
:1985 Author Organization [facility] Address [address] [place] [address] Care Team Providers Name Role Phone Blaire Bundy P.A.-C. Primary Care Provider [phone] Reason for Referral Outpatient (Routine) - Closed Specialty Diagnoses / Procedures Referred By Contact Refer red To Contact Diagnoses Gallstone With Common Bile Duct Stone Edd Moeller D.O. [facility] [address] [address] Referral ID Status Reason Start Date Expiration Date Visits Requ ested Visits Authorized [id number] Closed 02/09/2018 02/09/2019 1 1 Reason for Visit Reason Comments Cholelithiasis Outpatient (Routine) - Closed Specialty Diagnoses / Procedures Referred By Contact Refer red To Contact General Surgery Diagnoses Gallstone With Common Bile Duct Stone Blaire Bundy [facility] [place] doyle P.A.-C. [address] [place], [place] [address] Referral ID Status Reason Start Date Expiration Date Visits V isits Requested Authorized [id number] Closed Specialty 11/19/2017 05/18/2018 1 1 Services Required Encounter Details Date Type Department Care Team Description 02/09/2018 Comprehensive Visit Department of Juan Moeller Posthemorrhagic Acute (Primary Dx); General Surgery in Edd Gomez, Gallstone With Common Bile Duct Stone Marko Maxwell D.O. [address] MARKO MAXWELL [place] [phone] [phone] Social History Tobacco Use Types Packs/Day Years [...] She denies alcohol use. She works at [employer] in [employer]. OBJECTIVE PHYSICAL EXAMINATION General: Ms. Cooley is [...] scheduled in the near future. Job ID: [id number] documented in this encounter Plan of Treatment Scheduled Referrals Name Type Priority Associated Order Schedule Diagnoses Pre Operative Outpatient Referral Routine Gallstone With Expec pipe: Evaluation RAY nurse Common Bile Duct consult (clinic) Stone (Approximat e), Expires: 02/09/2021 documented as of this encounter Results (ABNORMAL) CBC with Differential, Blood (02/18/2018 10:42 AM CDT) [facility] Method Time Signature Hemoglobin 11.3 (L) 11.6 - 02/18/2018 [facility] 15.0 g/dL 10:54 AM T [facility] Hematocrit 37.3 35.5 - 02/18/2018 [facility] 44.9 % 10:54 AM T [facility] Erythrocytes 4.95 3.92 - 02/18/2018 [facility] 5.13 10:54 AM [facility] x10(12)/L [facility] MCV 75.4 (L) 78.2 - 02/18/2018 [facility] 97.9 fL 10:54 AM [facility] RBC Distrib Width 15.3 12.2 - 02/18/2018 [facility] 16.1 % 10:54 AM [facility] Platelet Count 285 157 - 371 02/18/2018 [facility] x10(9)/L 10:54 AM [facility] Leukocytes 7.0 3.4 - 9.6 02/18/2018 [facility] x10(9)/L 10:54 AM [facility] [place] [facility] Neutrophils 4.71 1.56 - 02/18/2018 [facility] 6.45 10:54 AM CDT [facility]ALTH x10(9)/L [facility] [place] [facility] Lymphocytes 1.76 0.95 - 02/18/2018 [facility] 3.07 10:54 AM CDT [facility] x10(9)/L [facility] [place] [facility] Monocytes 0.35 0.26 - 02/18/2018 [facility] 0.81 10:54 AM CDT [facility] x10(9)/L [facility] [place] [facility] Eosinophils 0.18 0.03 - 02/18/2018 [facility] 0.48 10:54 AM CDT [facility] x10(9)/L [facility] [place] [facility] Basophils 0.03 0.01 - 02/18/2018 [facility] 0.08 10:54 AM CDT [facility] x10(9)/L [facility] [place] [facility] Specimen Anatomical Collection Method Collection Time Receive d Time (Source) Location / / Volume Laterality Blood (Blood, 02/18/2018 10:42 02/18/2018 Venous) AM CDT 10:46 AM CDT Edd Moeller D.O. LAB BLOOD ADD-ON Performing Organization Address City/State/[facility] Code Phon e Number [facility]- [id number] [place] [id number] [facility] documented in this encounter Visit Diagnoses Diagnosis Anemia Posthemorrhagic Acute (Blood Loss Anemia) - Primary Gallstone With Common Bile Duct Stone documented in this encounter Additional Health Concerns Assessment Noted Time PHQ-9 Depression Total Score: 7 04/07/2017 9:39 AM CDT documented as of this encounter Care Teams Coupon Clerk Relationship Specialty Start Date End Date Blaire Bundy PBrittaneyACory. PCP - General 02/04/17 04/26/19 documented as of this encounter
--- OUTSIDE RECORDS SUMMARY | 2022-07-29 08:28 | XMS_ITS | Encounter Summary ---
:1985 Author Organization [facility] Address [address] [place] [address] Care Team Providers Name Role Phone Blaire [...] How often do you attend yazidi or shinto More than 4 time s [...] documented as of this encounter Care Teams Motion Picture Printer Relationship Specialty Start Date End Date Blaire Bundy P.A.-C. PCP - General 02/04/17 04/26/19 documented as of this encounter
--- OUTSIDE RECORDS SUMMARY | 2022-07-29 08:28 | XMS_ITS | Encounter Summary ---
:1985 Author Organization [facility] Address [address] [place] [address] Care Team Providers Name Role Phone Blaire Bundy P.A.-C. 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 [address] [place] [address] Pain Right Upper Quadrant (Primary Dx); General Surgery in RichardsSeng soto M.D. 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 [address] [address] Social History Tobacco Use Types [...] How often do you attend restoration or druze More than 4 time s [...] Surgeon: Rubio Baker M.D.; Location: [facility] OR ??? ESOPHAGOGASTRODUODENOSCOPY N/A 11/11/2017 Procedure: ESOPHAGOGASTRODUODENOSCOPY; Surgeon: Rubio Baker M.D.; Location: [facility] GI LAB ??? LAPAROSCOPIC APPENDECTOMY N/A 09/08/2017 Procedure: LAPAROSCOPIC APPENDECTOMY; Surgeon: Edd Moeller D.O.; Location: [facility] OR ??? OTHER CONVERTED [...] Type and screen (11/11/2017 12:30 PM CDT) [facility] gist Method Time Signature ABO Group A 11/11/2017 [facility] 1:05 PM CDT [facility] Rh Type NEG 11/11/2017 [facility] 1:05 PM CDT [facility] Antibody Screen NEG 11/11/2017 [facility] 1:16 PM CDT [facility] Type & Screen 11/14/2017 [facility] Expiration 23:59 [facility] ELXM Eligible Y 11/11/2017 [facility] 1:16 PM CDT [facility] Specimen Anatomical Collection Method Collection Time Receive d Time (Source) Location / / Volume Laterality Blood (Blood, 11/11/2017 12:30 11/11/2017 Venous) PM CDT 12:41 PM CDT Seng Reyna M.D. LAB BLOOD BANK TEST ORDERABL ES Performing Organization Address City/State/ZIP Code Phon e Number [facility] [address] [facility] [place] [address] [facility] Lipase (11/11/2017 12:18 PM CDT) athologist Signature Lipase, S 42 13 - 60 U/L 11/11/2017 [facility] 1:01 PM CDT [facility] Specimen Anatomical Collection Method Collection Time Receive d Time (Source) Location / / Volume Laterality Blood (Blood, 11/11/2017 12:18 11/11/2017 Venous) PM CDT 12:40 PM CDT Seng Reyna M.D. LAB BLOOD ADD-ON Performing Organization Address City/State/ZIP Code Phon e Number [facility] [address] [place] [address] [facility] (ABNORMAL) CMP (Comprehensive Metabolic Panel) (11/11/2017 12:18 PM CDT) athologist Signature Potassium, S 5.4 (H) 3.6 - 5.2 11/11/2017 [facility] mmol/L 1:01 PM CDT [facility] Sodium, S 138 135 - 145 11/11/2017 [facility] mmol/L 1:01 PM CDT [facility] Chloride, S 103 98 - 107 11/11/2017 [facility] mmol/L 1:01 PM CDT [facility] Bicarbonate, S 23 22 - 29 11/11/2017 [facility] mmol/L 1:01 PM CDT [facility] Anion Gap 12 7 - 15 11/11/2017 [facility] 1:01 PM CDT [facility] BUN (Blood Urea 35 (H) 6 - 21 11/11/2017 [facility] Nitrogen), S mg/dL 1:01 PM CDT [facility] Creatinine 0.69 0.59 - 11/11/2017 [facility] 1.04 mg/dL 1:01 PM [facility] eGFR >90 >=60 11/11/2017 [facility] Non-Black/Afric mL/min/BSA 1:01 PM [facility] Comment: ----ADDITIONAL INFORMATION---- Estimated GFR calculated using the 2009 CKD_EPI creatinine equation. eGFR Black/ >90 >=60 mL/min/BSA 11/11/2017 1:01 PM [facility] LAB Comment: ----ADDITIONAL INFORMATION---- Estimated GFR calculated using the 2009 CKD_EPI creatinine equation. Calcium, Total, S 8.9 8.9 - 10.1 11/11/2017 1:01 PM [facility] mg/dL [facility] LAB Glucose, S 153 (H) 70 - 140 mg/dL 11/11/2017 1:01 PM [facility] Protein, Total, S 6.0 (L) 6.3 - 7.9 g/dL 11/11/2017 1:01 P M [facility] LAB Albumin, S 3.4 (L) 3.5 - 5.0 g/dL 11/11/2017 1:01 PM [facility] Aspartate 23 8 - 43 U/L 11/11/2017 1:01 PM [facility] Amin[facility] ([facility]), S [facility] Alkaline Phosphatase, S 124 (H) 37 - 98 U/L 11/11/2017 1:0 1 PM [facility] LAB Alanine Aminotransferase 370 (H) 7 - 45 U/L 11/11/2017 1:0 1 PM [facility] (ALT), S [facility] LAB Bilirubin, Total, S 0.3 <=1.2 mg/dL 11/11/2017 1:01 PM [facility] Mobile [facility] LAB Specimen Anatomical Collection Method Collection Time Receive d Time (Source) Location / / Volume Laterality Blood (Blood, 11/11/2017 12:18 11/11/2017 Venous) PM CDT 12:40 PM CDT Seng Hartzheim M.D. LAB BLOOD ADD-ON Performing Organization Address City/State/ZIP Code Phon e Number [facility] [address] [place] [address] [facility] (ABNORMAL) CBC with Differential (11/11/2017 12:18 PM CDT) [facility] Method Time Signature Hemoglobin 9.2 (L) 11.6 - 11/11/2017 [facility] 15.0 g/dL 12:45 PM CDT [facility] Hematocrit 29.6 (L) 35.5 - 11/11/2017 [facility] 44.9 % 12:45 PM CDT [facility] Erythrocytes 3.39 (L) 3.92 - 11/11/2017 [facility] 5.13 12:45 PM CDT [facility] x10(12)/L [facility] [place] [facility] MCV 87.3 78.2 - 11/11/2017 [facility] 97.9 fL 12:45 PM CDT [facility] RBC Distrib Width 15.4 12.2 - 11/11/2017 [facility] 16.1 % 12:45 PM CDT [facility] Platelet Count 374 (H) 157 - 371 11/11/2017 [facility] x10(9)/L 12:[address] [facility] LAB Leukocytes 15.1 (H) 3.4 - 9.6 11/11/2017 [facility] x10(9)/L 12:45 PM CDT [facility] Neutrophils 10.79 (H) 1.56 - 11/11/2017 [facility] 6.45 12:45 PM CDT [facility] x10(9)/[facility] Lymphocytes 3.57 (H) 0.95 - 11/11/2017 [facility] 3.07 12:45 PM CDT [facility] x10(9)/[facility] Monocytes 0.65 0.26 - 11/11/2017 [facility] 0.81 12:45 PM CDT [facility] x10(9)/L [facility] Eosinophils 0.03 0.03 - 11/11/2017 [facility] 0.48 12:45 PM CDT [facility] x10(9)/L [facility] Basophils 0.05 0.01 - 11/11/2017 [facility] 0.08 12:45 PM CDT [facility] x10(9)/[facility] [facility] Specimen Anatomical Collection Method Collection Time Receive d Time (Source) Location / / Volume Laterality Blood (Blood, 11/11/2017 12:18 11/11/2017 Venous) PM CDT 12:40 PM CDT Seng Reyna M.D. 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 PCP - General 02/04/17 documented as of this encounter
--- OUTSIDE RECORDS SUMMARY | 2022-07-29 08:28 | XMS_ITS | Encounter Summary ---
:1985 Author Organization [facility] Address [address] [place] [address] Care Team Providers Name Role Phone Blaire Bundy P.A.-C. 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 PAR REVIEW Rubio Baker [facility] [place] Procedures [place] [facility] [address] [place] [address] Referral ID Status Reason Start Date Expiration Date Visits V isits Requested Authorized [id number] Closed Specialty 11/08/2017 05/07/2018 1 1 Services Required Reason for Visit Auth/Cert Specialty Diagnoses / Procedures Referred By Contact Refer red To Contact Diagnoses 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 Without Cholangitis [place]H RIVERA [address] [place] [address] [place] Rivera Obstruction [phone] [address] Social History Tobacco Use Types Packs/Day [...] How often do you attend sabianism or islam More than 4 time s [...] Everywhere. About Your ERCP, (Endoscopic Retrograde Cholangiopancreatography) (Mongolian) documented in this encounter Medications at Time [...] LAPAROSCOPIC APPENDECTOMY; Surgeon: Edd Moeller D.O.; Location: [facility] OR ??? OTHER CONVERTED SHX [...] Used ??? Alcohol use No [place], working at the [employer] there. Has two sons, the [...] - 11/08/2017 3:08 PM CDTAssociated Order(s): ERCP [facility] Patient Name: Carol Cooley Procedure Date: [...] anesthesia, benzocaine spray and indomethacin 100 mg RI Complications: No immediate complications. Estimated blood loss: [...] 1 : Perianal for CRE Swab Perianal [facility] PCR Rubio Baker M.D. 11/08/2017 1539 Drains None Estimated Blood Loss No blood loss documented. Implants * No implants in log * Rubio Baker M.D. documented in this encounter Plan of Treatment Scheduled Referrals Name Type Priority Associated Diagnoses Order S [facility] General Surgery - Outpatient Referral Routine Calculus [...] Duct Without Cholangitis Or Cholecystitis With Obstruction [facility] PCR Routine 11/08/2017 Calculus Of Bile [...] Surveillance PCR Perianal (11/08/2017 3:39 PM CDT) [facility] gist Method Time Signature Specimen RECTAL SWAB 11/09/2017 [facility] source 1:40 PM CDT [facility] KPC PCR Negative Not 11/09/2017 [facility] Applicable 1:40 PM CDT [facility] NDM PCR Negative Not 11/09/2017 [facility] Applicable 1:40 PM CDT [facility] Comment: ----ADDITIONAL INFORMATION---- This test was developed and its performa nce characteristics determined by [facility] in a manner consistent with CLIA requirements. This test has not been cleared or approved by the [place] d and Drug Administration. Specimen (Source) Anatomical Collection Method Collection Time Re ceived Time Location / / Volume Laterality Swab (Perianal) 11/08/2017 3:39 PM CDT Rubio Baker M.D. LAB MICROBIOLOGY - GENERAL O RDERABLES Performing Organization Address City/State/ZIP Code Phon e Number [facility] [address] [id number] 05 [facility] ERCP (11/08/2017 3:08 PM CDT) Specimen (Source) Anatomical Location Collection Method / Collectio n Time Received Time / Laterality Volume Narrative This result has an attachment that is no t available. Procedure Note Rubio Baker M.D. - 11/08/2017 3:0 8 PM CDT [facility] Patient Name: Carol Cooley Procedure Date: [...] benzocaine spray an d indomethacin 100 mg RI Complications: No immediate complication s. Estimated blood [...] documented as of this encounter Care Teams Damage Prevention Coordinator Relationship Specialty Start Date End Date Blaire Bundy P.A.-C. PCP - General 02/04/17 04/26/19 documented as of this encounter
--- OUTSIDE RECORDS SUMMARY | 2022-07-29 08:28 | XMS_ITS | Encounter Summary ---
:1985 Author Organization [facility] Address [address] [place] [address] Care Team Providers Name Role Phone Blaire [...] How often do you attend presybeterian or roman catholic More than 4 time [...] documented as of this encounter Care Teams Rock Loader Relationship Specialty Start Date End Date Blaire Bundy P.A.-C. PCP - General 02/04/17 04/26/19 documented as of this encounter
--- OUTSIDE RECORDS SUMMARY | 2022-07-29 08:28 | XMS_ITS | Encounter Summary ---
:1985 Author Organization [facility] Address [address] [place] [address] Care Team Providers Name Role Phone Blaire Bundy P.A.-C. Primary Care Provider Encounter Details Date Type Department Care Team Description 11/12/2017 Hospital Encounter HX NO MAPPING Nichole Lerma [address] [place], [place] [phone] Social History Tobacco Use [...] How often do you attend latter-day or confucianist More than 4 time s [...] documented as of this encounter Care Teams Settlement Worker Relationship Specialty Start Date End Date Blaire Bundy P.A.-C. PCP - General 02/04/17 04/26/19 documented as of this encounter
--- OUTSIDE RECORDS SUMMARY | 2022-07-29 08:28 | XMS_ITS | Encounter Summary ---
:1985 Author Organization [facility] Address [address] [place] [address] Care Team Providers Name Role Phone Blaire Bundy P.A.-C. Primary Care Provider Reason for Visit Reason Comments Other right big toe infection? Appointment Request (Routine) - Closed Specialty Diagnoses / Procedures Referred By Contact Refer red To Contact Family Medicine Referral ID Status Reason Start Date Expiration Date Visits Requ ested Visits Authorized [id number] Closed 11/22/2017 05/21/2018 1 1 Encounter Details Date Type Department Care Team Description 11/23/2017 Office Visit Department of Family Blaire Bundy Cell ulitis Toe Right Medicine, [place] [facility] (Primary Dx) [facility], in [address] [phone] [address] (Work) [phone] Social History Tobacco Use Types Packs/Day Years [...] How often do you attend mandaen or episcopalian More than 4 time s [...] as of this encounter Care Teams Inspector Technician Relationship Specialty Start Date End Date Blaire Budny P.A.-C. PCP - General 02/04/17 04/26/19 documented as of this encounter
--- OUTSIDE RECORDS SUMMARY | 2022-07-29 08:28 | XMS_ITS | Encounter Summary ---
:1985 Author Organization [facility] Address [address] [place] [address] Care Team Providers Name Role Phone Blaire Bundy P.A.-C. 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 [address] [place] [phone] [address] [address] Anesthesia Record Procedure Summary Procedure Name Responsible Anesthesia Start Anesthesia Stop Anesthesiologist Time Time ESOPHAGOGASTRODUODENOSCOPY Alberto Hampton APRN, 11/11/17 1634 11/11/17 1655 VP [employer] Events Date Time Event Comment 11/11/2017 1634 An Start Machine/Equipmen t Checked Infection Precautions Foll owed Procedure/Site Verified NPO Sta tus Verified Supine Standard ASA Mon itors Applied 1637 Turnover to Proceduralist 1653 Turnover to ANE Staff 1653 Proc Fin 1655 an stop data 1655 An End I completed my h andoff to the receiving staff during [facility] we 1. Identified the patient [...] by Abdomen; and dermabond; Antionette Barnes R.N. [facility]-Background DRS[facility] LAB SYSTEMS ANALYST WND ADH NEONAT , Ryanu jontahan Automated 2X3.75 (x3); 05/13/21 Batch Job (Removed [...] How often do you attend zoroastrian or mu-ism More than 4 time s [...] Procedure Summary Date: 11/11/17 Room / Location: [facility] 1412 / [facility] LAB Anesthesia Start: 1634 Anesthesia [...] as of this encounter Care Teams Clinical Psychologist Relationship Specialty Start Date End Date Blaire Bundy P.A.-C. PCP - General 02/04/17 04/26/19 documented as of this encounter
--- OUTSIDE RECORDS SUMMARY | 2022-07-29 08:28 | XMS_ITS | Encounter Summary ---
:1985 Author Organization [facility] Address [address] [place] [address] Care Team Providers Name Role Phone Blaire [...] as of this encounter Care Teams Sample Tester Relationship Specialty Start Date End Date Blaire Bundy P.A.-C. PCP - General 02/04/17 04/26/19 documented as of this encounter
--- OUTSIDE RECORDS SUMMARY | 2022-07-29 08:28 | XMS_ITS | Encounter Summary ---
:1985 Author Organization [facility] Address [address] [place] [address] Care Team Providers Name Role Phone Blaire Bundy P.A.-C. Primary Care Provider Encounter Details Date Type Department Care Team Description 11/12/2017 - Hospital Encounter HX RST Cassidy Sandhu, 11/13/2017 Sera, M.S. [address] [place] [phone] (Wo rk) Social History Tobacco Use Types [...] How often do you attend mu-ism or worship More than 4 time s [...] CBC with Differential (11/13/2017 7:23 AM CDT) [facility] Method Time Signature Hemoglobin 8.2 (L) 12.0 - [facility] 15.5 G/DL LABORATORIES - [facility] Hematocrit 26.0 (L) 34.9 - [facility] 44.5 % LABORATORIES [facility] RBC Distrib 15.2 11.9 - [facility] Width 15.5 % LABORATORIES [facility] Platelet Count 229 150 - 450 [facility] X10(9)/L LABORATORIES [facility] Leukocytes 10.1 3.5 - [facility] 10.5 LABORATORIES - X10(9)/L [facility] Neutrophils 7.11 (H) 1.70 - [facility] 7.00 LABORATORIES - X10(9)/L [facility] Lymphocytes 2.38 0.90 - [facility] 2.90 LABORATORIES - X10(9)/L [facility] Monocytes 0.52 0.30 - [facility] 0.90 LABORATORIES - X10(9)/L [facility] Erythrocytes 2.93 (L) 3.90 - [facility] 5.03 LABORATORIES - X10(12)/L [facility] MCV 88.7 81.6 - [facility] 98.3 FL LABORATORIES - [facility] Eosinophils 0.03 (L) 0.05 - [facility] 0.50 LABORATORIES - X10(9)/L [facility] Basophils <0.03 0.00 - [facility] 0.30 LABORATORIES - X10(9)/L [facility] Specimen Anatomical Collection Method Collection Time Receive d Time (Source) Location / / Volume Laterality 11/13/2017 7:23 AM 8 7:23 CDT AM CDT Historical Provider LAB BLOOD ADD-ON Performing Organization Address City/State/ZIP Code Phon e Number [facility] LABORATORIES - [address] [place], [place] [address] [facility] (ABNORMAL) CBC with Differential (11/12/2017 7:48 PM CDT) [facility] gist Method Time Signature Hemoglobin 8.6 (L) 12.0 - [facility] 15.5 G/DL LABORATORIES - [facility] Hematocrit 26.2 (L) 34.9 - [facility] 44.5 % LABORATORIES - [facility] Erythrocytes 3.04 (L) 3.90 - [facility] 5.03 LABORATORIES - X10(12)/L [facility] MCV 86.2 81.6 - [facility] 98.3 [place] LABORATORIES - [facility] RBC Distrib 15.0 11.9 - [facility] Width 15.5 % LABORATORIES - [facility] Platelet Count 210 150 - 450 [facility] X10(9)/L LABORATORIES - [facility] Leukocytes 10.3 3.5 - [facility] 10.5 LABORATORIES - X10(9)/L [facility] Neutrophils 9.08 (H) 1.70 - [facility] 7.00 LABORATORIES - X10(9)/L [facility] Lymphocytes 1.03 0.90 - [facility] 2.90 LABORATORIES - X10(9)/L [facility] Monocytes 0.17 (L) 0.30 - [facility] 0.90 LABORATORIES - X10(9)/L [facility] Eosinophils <0.03 (L) 0.05 - [facility] 0.50 LABORATORIES - X10(9)/L [facility] Basophils <0.03 0.00 - [facility] 0.30 LABORATORIES - X10(9)/L [facility] Specimen Anatomical Collection Method Collection Time Receive d Time (Source) Location / / Volume Laterality 11/12/2017 7:48 PM 8 7:48 CDT PM CDT Venu Fernandez M.D., M.S. LAB BLOOD ADD-ON Performing Organization Address [facility] Phon e Number [facility] LABORATORIES - [address] [place], [place] [address] [facility] ABORh, RBC (11/12/2017 11:55 AM CDT) P athologist Signature HXABO/RH BLOOD A NEG [facility] TYPE LABORATORIES - [facility] Specimen (Source) Anatomical Collection Method Collection Time Re ceived Time Location / / Volume Laterality 11/12/2017 11:55 AM CDT Historical Provider LAB BLOOD BANK TEST ORDERABL ES Performing Organization Address [facility] Phon e Number [facility] LABORATORIES - [address] [place], [place] [address] [facility] Antibody Screen, RBC (11/12/2017 11:55 AM CDT) Patholo gist Method Time Signature Antibody Negative [facility] Screen LABORATORIES - [facility] Specimen (Source) Anatomical Collection Method Collection Time Re ceived Time Location / / Volume Laterality 11/12/2017 11:55 AM CDT Historical Provider LAB BLOOD BANK TEST ORDERABL ES Performing Organization Address [facility] Phon e Number [facility] LABORATORIES - [address] [place], [place] [address] [facility] Calcium, Ionized (11/12/2017 11:42 AM CDT) P athologist Signature Calcium, 4.93 4.57 - [facility] Ionized, S 5.43 MG/DL LABORATORIES - [facility] Comment: ? ADDITIONAL INFORMATIO N ? This test has been modified from the man mackr's ? instructions. Its performance characteri stics were ? determined by [facility] in a manner co nsistent with ? CLIA requirements. This test has not bee n cleared or ? approved by the U.S. Food and Drug Admin istration. ? pH 7.42 7.35 - 7.48 [facility] LABORA TORIES - [facility] Specimen Anatomical Collection Method Collection Time Receive d Time (Source) Location / / Volume Laterality 11/12/2017 11:42 11/12/2017 AM CDT 11:42 AM CDT Venu Fernandez M.D., M.S. LAB BLOOD NON ADD-ON Performing Organization Address City/[facility] Code Phon e Number [facility] LABORATORIES - [address] [place] [address] [facility] (ABNORMAL) ALT (Alanine Aminotransferase) (11/12/2017 11:42 AM CDT) Component Value Ref Test Analysis [facility] Range Method Time Signature Alanine 212 (H) 7 - 45 [facility] Aminotransferase U/L LABORATORIES - (ALT), S [facility] Specimen Anatomical Collection Method Collection Time Receive d Time (Source) Location / / Volume Laterality 11/12/2017 11:42 11/12/2017 AM CDT 11:42 AM CDT Venu Fernandez M.D., M.S. LAB BLOOD ADD-ON Performing Organization Address City/[facility] Phon e Number [facility] LABORATORIES - [address] [place] [address] [facility] BMP (Basic Metabolic Panel) (11/12/2017 11:42 AM CDT) Analysis Performed At [facility] logist Time Signature Sodium, P 141 135 - 145 [facility] MMOL/L LABORATORIES - [facility] Potassium, P 4.0 3.6 - 5.2 [facility] MMOL/L LABORATORIES - [facility] eGFR >60 >60 [facility] Non-Black/Afric ML/MIN/BSA LABORATORIES - [facility] eGFR >60 >60 [facility] Black/ ML/MIN/BSA LABORATORIES - [facility] BUN (Blood Urea 11 6 - 21 [facility] Nitrogen), S MG/DL LABORATORIES - [facility] HX Bicarbonate, 23 22 - 29 [facility] P/S MMOL/L LABORATORIES - [facility] Glucose, S 102 70 - 140 [facility] MG/DL LABORATORIES - [facility] Anion Gap 12 7 - 15 [facility] LABORATORIES - [facility] Chloride, S 106 98 - 107 [facility] MMOL/L LABORATORIES - [facility] Creatinine 0.7 0.6 - 1.1 [facility] MG/DL LABORATORIES - [facility] eGFR >60 >60 [facility] Non-Black/Afric ML/MIN/BSA LABORATORIES - an Iraqi [facility] eGFR-Black/Afri >60 >60 [facility] can Iraqi ML/MIN/BSA LABORATORIES - [facility] Creatinine 0.7 0.6 - 1.1 [facility] MG/DL LABORATORIES - [facility] Specimen Anatomical Collection Method Collection Time Receive d Time (Source) Location / / Volume Laterality 11/12/2017 11:42 11/12/2017 AM CDT 11:42 AM CDT Venu Fernandez M.D., M.S. LAB BLOOD ADD-ON Performing Organization Address City/[facility] Code Phon e Number [facility] LABORATORIES - [address] (ABNORMAL) CBC without Differential (11/12/2017 11:42 AM CDT) Patholo gist Method Time Signature Hemoglobin 9.8 (L) 12.0 - [facility] 15.5 G/DL LABORATORIES - [facility] Hematocrit 29.8 (L) 34.9 - [facility] 44.5 % LABORATORIES - [facility] Erythrocytes 3.42 (L) 3.90 - [facility] 5.03 LABORATORIES - X10(12)/L [facility] MCV 87.1 81.6 - [facility] 98.3 FL [facility] - [facility] RBC Distrib 15.0 11.9 - [facility] Width 15.5 % [facility] Platelet Count 229 150 - 450 [facility] X10(9)/L [facility] Leukocytes 13.2 (H) 3.5 - [facility] 10.5 LABORATORIES - X10(9)/L [facility] Specimen Anatomical Collection Method Collection Time Receive d Time (Source) Location / / Volume Laterality 11/12/2017 11:42 11/12/2017 AM CDT 11:42 AM CDT Venu Fernandez M.D., M.S. LAB BLOOD ADD-ON Performing Organization Address City/State/ZIP Code Phon e Number [facility] LABORATORIES - [address] [place] [address] [facility] Phosphorus Inorganic (11/12/2017 11:42 AM CDT) Analysis Performed At Patho logist Time Signature Phosphorus 2.6 2.5 - 4.5 [facility] (Inorganic), S MG/DL LABORATORIES [facility] Specimen Anatomical Collection Method Collection Time Receive d Time (Source) Location / / Volume Laterality 11/12/2017 11:42 11/12/2017 AM CDT 11:42 AM CDT Venu Fernandez M.D., M.S. LAB BLOOD ADD-ON Performing Organization Address City/[facility]/ZIP [facility] Phon e Number [facility] LABORATORIES - [address] [place] [address] [facility] Bilirubin, Total (11/12/2017 11:42 AM CDT) P athologist Signature Bilirubin, 0.8 <=1.2 [facility] Total, S MG/DL [facility] Specimen Anatomical Collection Method Collection Time Receive d Time (Source) Location / / Volume Laterality 11/12/2017 11:42 11/12/2017 AM CDT 11:42 AM CDT Venu Fernandez M.D., M.S. LAB BLOOD ADD-ON Performing Organization Address City/[facility]/ZIP Code Phon e Number [facility] LABORATORIES - [address] [place] [address] [facility] Magnesium (11/12/2017 11:42 AM CDT) P athologist Signature Magnesium, S 1.9 1.7 - 2.3 [facility] MG/DL [facility] Specimen Anatomical Collection Method Collection Time Receive d Time (Source) Location / / Volume Laterality 11/12/2017 11:42 11/12/2017 AM CDT 11:42 AM CDT Venu Fernandez M.D., M.S. LAB BLOOD ADD-ON Performing Organization Address City/State/ZIP Code Phon e Number [facility] LABORATORIES - [address] [place] [address] [facility] Bilirubin, Direct (11/12/2017 11:42 AM CDT) P athologist Signature Bilirubin, 0.2 0.0 - 0.3 [facility] Direct, S MG/DL [facility] Specimen Anatomical Collection Method Collection Time Receive d Time (Source) Location / / Volume Laterality 11/12/2017 11:42 11/12/2017 AM CDT 11:42 AM CDT Venu Fernandez M.D., M.S. LAB BLOOD ADD-ON Performing Organization Address City/[facility]/ZIP Code Phon e Number [facility] LABORATORIES - [address] AST (Aspartate Aminotransferase) (11/12/2017 11:42 AM CDT) P athologist Signature AST, Total, S 22 8 - 43 U/L [facility] Specimen Anatomical Collection Method Collection Time Receive d Time (Source) Location / / Volume Laterality 11/12/2017 11:42 11/12/2017 AM CDT 11:42 AM CDT Venu Fernandez M.D., M.S. LAB BLOOD ADD-ON Performing Organization Address City/[facility]/ZIP Code Phon e Number [facility] LABORATORIES - [address] [place] [address] [facility] Alkaline Phosphatase (11/12/2017 11:42 AM CDT) athologist Signature Alkaline 92 37 - 98 [facility] Phosphatase, S U/L [facility] Specimen Anatomical Collection Method Collection Time Receive d Time (Source) Location / / Volume Laterality 11/12/2017 11:42 11/12/2017 AM CDT 11:42 AM CDT Venu Fernandez M.D., M.S. LAB BLOOD ADD-ON Performing Organization Address City/[facility]/ZIP Code Phon e Number [facility] - [address] documented in this encounter Visit Diagnoses Not on filedocumented in this encounter Additional Health Concerns Assessment Noted Time PHQ-9 Depression Total Score: 7 04/07/2017 9:39 AM CDT documented as of this encounter Care Teams Electric Meter Installer Relationship Specialty Start Date End Date Blaire Bundy P.A.-C. PCP - General 02/04/17 04/26/19 documented as of this encounter
--- OUTSIDE RECORDS SUMMARY | 2022-07-29 08:28 | XMS_ITS | Encounter Summary ---
:1985 Author Organization [facility] Address [address] [place] [address] Care Team Providers Name Role Phone Blaire Bundy P.A.-C. Primary Care Provider Reason for Referral Outpatient (Routine) - Closed Specialty Diagnoses / Procedures Referred By Contact Refer red To Contact General Surgery Diagnoses Gallstone With Common Bile Duct Stone Blaire Bundy [facility] Alicia BuckleyABrittaney-CBrittaney [address] [place], [place] [address] Referral ID Status Reason Start Date Expiration Date Visits V isits Requested Authorized [id number] Closed Specialty 11/19/2017 05/18/2018 1 1 Services Required Reason for Visit Reason Comments Post Hospital Follow-up Patient discharged from [place] on 11/13/17. 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 Patient is complaining of feeling tired and short of breath Encounter Details Date Type Department Care Team Description 11/19/2017 Office Visit Department of Family Blaire Bundy (Primary Dx); Medicine, Jose Knox Hypovolemic Shock (HCC); Clinic, in [address] Gallstone With Common Bile Duct Stone; [place], [place] Counseling Control [address] [place] [address] [place], [place] [phone] (Work) [phone] Social History Tobacco Use Types Packs/Day Years [...] often do you attend jehovah's witness or hoahaoism More than 4 time s [...] of Post Hospital Follow-up (Patient discharged from [place] on 11/13/17. Was in for Upper GI [...] transferred from [facility] to [facility] for further treatment. In [place] the patient had another EGD which showed [...] Name Type Priority Associated Diagnoses Order S [facility] General Surgery - Outpatient Referral Routine [...] CBC with Differential (11/19/2017 11:35 AM CDT) [facility] gist Method Time Signature Hemoglobin 8.6 (L) 11.6 - 11/19/2017 [facility] 15.0 g/dL 11:58 AM CDT [employer] [facility] Hematocrit 27.7 (L) 35.5 - 11/19/2017 [facility] 44.9 % 11:58 AM CDT [employer] [facility] Erythrocytes 3.10 (L) 3.92 - 11/19/2017 [facility] 5.13 11:58 AM CDT [facility] x10(12)/L [facility] MCV 89.4 78.2 - 11/19/2017 [facility] 97.9 fL 11:58 AM T [employer] [facility] RBC Distrib Width 14.9 12.2 - 11/19/2017 [facility] 16.1 % 11:58 AM T [employer] [facility] Platelet Count 355 157 - 371 11/19/2017 [facility] x10(9)/L 11:58 AM CDT [employer] [facility] Leukocytes 5.6 3.4 - 9.6 11/19/2017 [facility] x10(9)/L 11:58 AM T [employer] [facility] Neutrophils 2.80 1.56 - 11/19/2017 [facility] 6.45 11:58 AM CDT HEALTH x10(9)/L [facility] [place] [facility] Lymphocytes 2.17 0.95 - 11/19/2017 [facility] 3.07 11:58 AM CDT HEALTH x10(9)/L [facility] [place] [facility] Monocytes 0.44 0.26 - 11/19/2017 [facility] 0.81 11:58 AM CDT HEALTH x10(9)/L [facility] [place] [facility] Eosinophils 0.22 0.03 - 11/19/2017 [facility] 0.48 11:58 AM CDT HEALTH x10(9)/L [facility] [place] [facility] Basophils 0.01 0.01 - 11/19/2017 [facility] 0.08 11:58 AM CDT HEALTH x10(9)/L [facility] [place] [facility] Specimen Anatomical Collection Method Collection Time Receive d Time (Source) Location / / Volume Laterality Blood (Blood, 11/19/2017 11:35 11/19/2017 Venous) AM CDT 11:50 AM CDT Blaire Bundy P.A.-C. LAB BLOOD ADD-ON Performing Organization Address City/[facility] Code Phon e Number [facility]- [address] [place] [address] [facility] documented in this encounter Visit Diagnoses Diagnosis Melena - Primary Hypovolemic Shock (HCC) Gallstone With Common Bile Duct Stone Counseling Control documented in this encounter Additional Health Concerns Assessment Noted Time PHQ-9 Depression Total Score: 7 04/07/2017 9:39 AM CDT documented as of this encounter Care Teams Developer Advocate Relationship Specialty Start Date End Date Blaire Bundy P.A.-C. PCP - General 02/04/17 04/26/19 documented as of this encounter
--- OUTSIDE RECORDS SUMMARY | 2022-07-29 08:28 | XMS_ITS | Encounter Summary ---
:1985 Author Organization [facility] Address [address] [place] [address] Care Team Providers Name Role Phone Blaire Bundy P.A.-C. 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 CHOLANGIOPANCREATOGRAPHY [place], [place] [address] [address] [place], [place] [phone] [address] Social History Tobacco Use Types Packs/Day [...] How often do you attend islam or mormonism More than 4 time s [...] Everywhere. About Your ERCP, (Endoscopic Retrograde Cholangiopancreatography) (Kyrgyz) documented in this encounter Medications at Time [...] Used ??? Alcohol use No Lives in [place], working at the [employer] there. Has two sons, the [...] - 11/08/2017 3:08 PM CDTAssociated Order(s): ERCP [facility] Patient Name: Carol Cooley Procedure Date: [...] : Perianal for CRE Swab Perianal [facility] SURVEILLANCE PCR Rubio Baker M.D. 11/08/2017 1539 Drains None Estimated Blood Loss No blood loss documented. Implants * No implants in log * Rubio Baker M.D. documented in this encounter Plan of Treatment Scheduled Referrals Name Type Priority Associated Diagnoses Order S [facility] General Surgery - Outpatient Referral [...] Without Cholangitis Or Cholecystitis With Obstruction [facility] SURVEILLANCE [...] Surveillance PCR Perianal (11/08/2017 3:39 PM CDT) [facility] gist Method Time Signature Specimen RECTAL SWAB 11/09/2017 [facility] source 1:40 PM CDT LABORATORIES - [facility] KPC PCR Negative Not 11/09/2017 [facility] Applicable 1:40 PM CDT LABORATORIES - [facility] NDM PCR Negative Not 11/09/2017 [facility] Applicable 1:40 PM CDT LABORATORIES - [facility] Comment: ----ADDITIONAL INFORMATION---- This test was developed and its performa nce characteristics determined by [facility] in a manner consistent with CLIA requirements. [...] [facility] LABORATORIES - [address] [place] [address] [facility] ERCP (11/08/2017 3:08 PM CDT) Specimen (Source) Anatomical Location Collection Method / Collectio n Time Received Time / Laterality Volume Narrative This result has an attachment that is no t available. Procedure Note Rubio Baker M.D. - 11/08/2017 3:0 8 PM CDT [facility] Patient Name: Carol Cooley Procedure Date: [...] as of this encounter Care Teams Manager Dairy Relationship Specialty Start Date End Date Blaire Bundy P.A.-C. PCP - General 02/04/17 04/26/19 documented as of this encounter
--- OUTSIDE RECORDS SUMMARY | 2022-07-29 08:28 | XMS_ITS | Encounter Summary ---
:1985 Author Organization [facility] Address [address] [place] [address] Care Team Providers Name Role Phone Blaire Bundy P.A.-C. Primary Care Provider [phone] Reason for Visit Reason Comments Communication [facility] Hospital follow up Encounter Details Date Type Department Care Team Description 11/15/2017 Clinical Department of Suellen Beasley on ([facility] Communication Family Medicine, [facility] Hospital follow up) [place] [address] Clinic, in [address] [phone] [facility] [phone] [place], [place] (Work) [phone] Social History Tobacco Use [...] How often do you attend adventism or anabaptism More than 4 time s [...] to pay for the very basics like FAD ? IO hat hard 07/09/2020 food, housing, medical care, [...] documented as of this encounter Care Teams Behavioral Intervention Specialist Relationship Specialty Start Date End Date Blaire Bundy P.A.-C. PCP - General 02/04/17 04/26/19 documented as of this encounter
--- OUTSIDE RECORDS SUMMARY | 2022-07-29 08:28 | XMS_ITS | Encounter Summary ---
:1985 Author Organization [facility] Address [address] [place] [address] Care Team Providers Name Role Phone Blaire Bundy P.A.-C. 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 [address] [address] [facility] [phone] [place] [phone] Anesthesia Record Procedure Summary Procedure Name Responsible [...] h andoff to the receiving staff during [facility] ch we 1. Identified the patient [...] by and henok; Antionette Cooper CRT, R.N. [facility] WND ADH NEONAT 2X3.75 d, Schedul ing [...] How often do you attend latter-day or mandaeism More than 4 time s [...] Procedure Summary Date: 11/08/17 Room / Location: [address] 01 140 / [facility] [...] patient / legal guardian, or through an timber spotter; patient evaluated and approved for anesthesia / [...] documented as of this encounter Care Teams Hydroelectric Plant Technician Relationship Specialty Start Date End Date Blaire Bundy P.A.-C. PCP - General 02/04/17 04/26/19 documented as of this encounter
--- OUTSIDE RECORDS SUMMARY | 2022-07-29 08:28 | XMS_ITS | Encounter Summary ---
:[address] [facility] Address [address] [place] [address] Care Team Providers Name Role Phone Blaire Bundy P.A.-C. 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 [address] [phone] Social History Tobacco Use Types Packs/Day Years [...] How often do you attend gnosticism or hoahaoism More than 4 time s [...] Primary Care Providers: Blaire Thornton P.A.-C. (General) [address] [place] [phone] Primary Care Provider Primary Care Provider Admission Date: 11/11/2017 Discharge Date: 11/12/2017 PRINCIPAL DIAGNOSIS Melena SECONDARY DIAGNOSES Active Problems: Hypovolemic Shock (HCC) Morbid obesity Resolved Problems: * No resolved hospital problems. * Operative Procedures: Scheduled (Blank), Completed (Comp) or Canceled (Can) Case IDs Date Procedure Surgeon Location Status [id number] 11/11/17 ESOPHAGOGASTRODUODENOSCOPY Rubio Baker M.D. [facility] Blank Past Medical History: Diagnosis Date ??? Sleep Apnea Past Surgical History: Procedure Laterality Date ??? ENDOSCOPIC RETROGRADE CHOLANGIOPANCREATOGRAPHY (ERCP) N/A 11/08/2017 Procedure: ENDOSCOPIC RETROGRADE CHOLANGIOPANCREATOGRAPHY; Surgeon: Rubio Baker M.D.; Location: [facility] OR ??? LAPAROSCOPIC APPENDECTOMY N/A 09/08/2017 Procedure: LAPAROSCOPIC APPENDECTOMY; Surgeon: Edd Moeller D.O.; Location: [facility] OR ??? OTHER CONVERTED SHX [...] 1/3 unit of blood. Coordinated care with [facility] in [place]. Patient will be transferred via ambulance to [...] own decisions. FOLLOW UP APPOINTMENTS: Transfer to [facility] TEST RESULTS PENDING AT DISCHARGE: None. [...] bleeding and would like to transfer to [place]. Still gets winded with any movement. OBJECTIVE [...] ERCPist to treat this. Will transfer to [place] this morning. NPO. Discussed case with Dr. [...] RETROGRADE CHOLANGIOPANCREATOGRAPHY; Surgeon: Rubio Baker M.D.; Location: [facility] OR ??? LAPAROSCOPIC APPENDECTOMY N/A 09/08/2017 Procedure: LAPAROSCOPIC APPENDECTOMY; Surgeon: Edd Moeller D.O.; Location: [facility] OR ??? OTHER CONVERTED SHX [...] 3:51 PM CDTAssociated Order(s): UPPER GI ENDOSCOPY [facility] [place] [facility] Patient Name: Carol Cooley Procedure Date: [...] specimens collected. Recommendation: - After discussing with [place], as she has achieved some hemostasis, will observe. - Continue Protonix 40 mg IV BID. - Minimal clear liquids are OK. - If she continues to significantly bleed, and certainly if she becomes unstable, then will plan on transferring to [place] for further therapy. Findings: The esophagus was [...] RETROGRADE CHOLANGIOPANCREATOGRAPHY; Surgeon: Rubio Baker M.D.; Location: [facility] OR ??? LAPAROSCOPIC APPENDECTOMY N/A 09/08/2017 Procedure: LAPAROSCOPIC APPENDECTOMY; Surgeon: Edd Moeller D.O.; Location: [facility] OR ??? OTHER CONVERTED SHX [...] - 11/12/2017 9:26 AM CDT Transfer to [place] report given to Don Gabrielle Nguyen R.N. - 11/12/2017 9:22 AM CDT Goals: Clinical Goals for the Shift: reduce heart rate; improve hemoglobin level Identify possible barriers to meeting goals/advancing plan of care: none Stability of the patient: Moderately Stable - Low risk of patient condition declining or worsening End of Shift Summary: pt to transfer to [place] Marcus Mata R.N. 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 LAB BLOOD ADD-ON Performing Organization Address City/State/ZIP Code Phon e Number [facility] [address] [place] [address] [facility] (ABNORMAL) Hemoglobin (11/12/2017 12:21 AM CDT) P athologist Signature Hemoglobin 8.9 (L) 11.6 - 15.0 11/12/2017 [facility] g/dL 12:24 AM CDT [facility] Specimen Anatomical Collection Method Collection Time Receive d Time (Source) Location / / Volume Laterality Blood (Blood, 11/12/2017 12:21 11/12/2017 Venous) AM CDT 12:21 AM CDT Kendal Santacruz APRNNLebron. LAB BLOOD ADD-ON Performing Organization Address City/State/ZIP Code Phon e Number [facility] [address] [place] [address] [facility] Transfuse Red Blood Cells (11/11/2017 10:52 PM CDT) Kaye Grimes APRN, C.N.P., M.S.N. BLOOD TRANSFUSION O RDERABLES Transfuse Red Blood Cells : , 1 Units (11/11/2017 10:52 PM CDT) Kendal Boudreaux APRNN.P., M.S.N. BLOOD TRANSFUSION O RDERABLES (ABNORMAL) Hemoglobin (11/11/2017 6:15 PM CDT) P athologist Signature Hemoglobin 8.7 (L) 11.6 - 15.0 11/11/2017 [facility] g/dL 6:21 PM CDT - [facility] Specimen Anatomical Collection Method Collection Time Receive d Time (Source) Location / / Volume Laterality Blood (Blood, 11/11/2017 6:15 PM 11/12/19 18 6:19 Venous) CDT PM CDT Kendal Santacruz APRNNLebron. LAB BLOOD ADD-ON Performing Organization Address City/State/ZIP Code Phon e Number [facility] [address] [place] [address] [facility] Transfuse Red Blood Cells (11/11/2017 [...] 11/11/2017 3:5 1 PM CDT [facility] [place] [facility] Patient Name: Carol Cooley Procedure Date: [...] specimens collected. Recommendation: - After discussing with [place], as s he has achieved some hemostasis, will observe. - Continue Protonix 40 mg IV BID. - Minimal clear liquids are OK. - If she continues to significantly ble ed, and certainly if she becomes unstable, then will plan on transferrin g to [place] for further therapy. Findings: The esophagus was [...] Prothrombin 9.4 8.8 - 11.9 11/11/2017 [facility] Time, P sec 12:58 PM CDT [facility] INR 0.9 0.9 - 1.2 11/11/2017 [facility] 12:58 PM CDT [facility] Comment: Standard intensity warfarin therapeutic range: 2.0 to 3.0 High intensity warfarin therapeutic rang e: 2.5 to 3.5 Specimen Anatomical Collection Method Collection Time Receive d Time (Source) Location / / Volume Laterality Blood (Blood, 11/11/2017 12:39 11/11/2017 Venous) PM CDT 12:42 PM CDT Nuno Love M.D. LAB BLOOD ADD-ON Performing Organization Address City/State/ZIP Code Phon e Number [facility] [address] [place] [address] [facility] Lactate (11/11/2017 12:39 PM CDT) P athologist Signature Lactate, P 2.1 0.6 - 2.3 11/11/2017 [facility] mmol/L 12:59 PM CDT - [facility] Specimen Anatomical Collection Method Collection Time Receive d Time (Source) Location / / Volume Laterality Blood (Blood, 11/11/2017 12:39 11/11/2017 Venous) PM CDT 12:42 PM CDT Nuno Love M.D. LAB BLOOD NON ADD-ON Performing Organization Address City/State/ZIP Code Phon e Number [facility] [address] [place] [address] [facility] documented in this encounter Visit [...] pablo - Provider: Cammie Schuster RBrittaneyNBrittaney)1608 ([facility] Hold - Provider: Transfer Provider, Automatic - Reason: Patient not available)1735 ([facility] Unhold - Provider: Transfer Provider, Automatic)2032 (Given - Provider: Ruben AyonNBrittaney) 0830 (Given - Provider: Ruben HamlinNBrittaney)0903 (Given - Provider: Gabrielle Nguyen R.N.) 10 mL, intravenous, As needed, line care , Starting on Bryanna 11/11/17 at 1230, Peripheral Intravenous Catheter and Rapid Infusion Catheter, prior to blood sampling, post blood transfusion or post blood sampling sodium chloride injection 3 mL 1608 ([facility] Hold - Provider: Transfer Provider, Automatic - Reason: Patient not available)1735 ([facility] Unhold - Provider: Transfer Provider, Automatic) 3 mL, intravenous, As needed, line care, Starting on Bryanna 11/11/17 at 1230, Prior to and following infusion and between multiple consecutive infusions: sodium chloride 0.9 % injection documented in this encounter Additional Health Concerns Assessment Noted Time PHQ-9 Depression Total Score: 7 04/07/2017 9:39 AM CDT documented as of this encounter 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 PCP - General 02/04/17 04/26/19 documented as of this encounter
--- OUTSIDE RECORDS SUMMARY | 2022-07-29 08:28 | XMS_ITS | Encounter Summary ---
:1985 [address] [facility] Address [address] [place] [address] Care Team Providers Name Role Phone Blaire Bundy P.A.-C. 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 [address] [place] [address] Radha (Primary Dx); 11/12/2017 Encounter Hospital, [place] Taryn Helm M.D. [address] [place] [address] Hypovolemic Shock (HCC); [facility] Third Floor [address] [place] [address] Social History Tobacco Use Types [...] Primary Care Providers: Blaire Thornton P.A.-C. (General) [address] [place] [phone] Primary Care Provider Primary Care Provider Admission Date: 11/11/2017 Discharge Date: 11/12/2017 PRINCIPAL DIAGNOSIS Melena SECONDARY DIAGNOSES Active Problems: Hypovolemic Shock (HCC) Morbid obesity Resolved Problems: * No resolved hospital problems. * Operative Procedures: Scheduled (Blank), Completed (Comp) or Canceled (Can) Case IDs Date Procedure Surgeon Location Status [id number] 11/11/17 ESOPHAGOGASTRODUODENOSCOPY Rubio Baker M.D. [facility] Blank Past Medical History: Diagnosis Date ??? Sleep Apnea Past Surgical History: Procedure Laterality Date ??? ENDOSCOPIC RETROGRADE CHOLANGIOPANCREATOGRAPHY (ERCP) N/A 11/08/2017 Procedure: ENDOSCOPIC RETROGRADE CHOLANGIOPANCREATOGRAPHY; Surgeon: Rubio Baker M.D.; Location: [facility] OR ??? LAPAROSCOPIC APPENDECTOMY N/A 09/08/2017 [...] 1/3 unit of blood. Coordinated care with [facility] in [place]. Patient will be transferred via ambulance to [...] own decisions. FOLLOW UP APPOINTMENTS: Transfer to [facility] TEST RESULTS PENDING AT DISCHARGE: None. [...] bleeding and would like to transfer to [place]. Still gets winded with any movement. OBJECTIVE [...] ERCPist to treat this. Will transfer to [place] this morning. NPO. Discussed case with Dr. [...] [facility] OR ??? LAPAROSCOPIC APPENDECTOMY N/A 09/08/2017 [...] CDTAssociated Order(s): UPPER GI ENDOSCOPY [facility] [place] [facility] Patient Name: Carol Cooley Procedure Date: [...] unstable, then will plan on transferring to [place] for further therapy. Findings: The esophagus was [...] [facility] OR ??? LAPAROSCOPIC APPENDECTOMY N/A 09/08/2017 [...] - 11/12/2017 9:26 AM CDT Transfer to [place] report given to Don Gabrielle Nguyen R.N. - 11/12/2017 9:22 AM CDT Goals: Clinical Goals for the Shift: reduce heart rate; improve hemoglobin level Identify possible barriers to meeting goals/advancing plan of care: none Stability of the patient: Moderately Stable - Low risk of patient condition declining or worsening End of Shift Summary: pt to transfer to [place] Marcus Mata R.N. 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 LAB BLOOD ADD-ON Performing Organization Address City/State/ZIP Code Phon e Number [facility] [address] [place] [address] [facility] (ABNORMAL) Hemoglobin (11/12/2017 12:21 AM CDT) P athologist Signature Hemoglobin 8.9 (L) 11.6 - 15.0 11/12/2017 [facility] g/dL 12:24 AM CDT [facility] Specimen Anatomical Collection Method Collection Time Receive d Time (Source) Location / / Volume Laterality Blood (Blood, 11/12/2017 12:21 11/12/2017 Venous) AM CDT 12:21 AM CDT Marlyn Santacruz APRN.N.P. LAB BLOOD ADD-ON Performing Organization Address City/State/ZIP Code Phon e Number [facility] [address] [place] [address] [facility] Transfuse Red Blood Cells (11/11/2017 10:52 PM CDT) Kaye Grimes APRN, C.N.P., M.S.N. BLOOD TRANSFUSION O RDERABLES Transfuse Red Blood Cells : , 1 Units (11/11/2017 10:52 PM CDT) Kaye Grimes APRN, C.N.P., M.S.N. BLOOD TRANSFUSION O RDERABLES (ABNORMAL) Hemoglobin (11/11/2017 6:15 PM CDT) athologist Signature Hemoglobin 8.7 (L) 11.6 - 15.0 11/11/2017 [facility] g/dL 6:21 PM CDT [facility] Specimen Anatomical Collection Method Collection Time Receive d Time (Source) Location / / Volume Laterality Blood (Blood, 11/11/2017 6:15 PM 11/12/19 18 6:19 Venous) CDT PM CDT Kendal Santacruz APRNN.P. LAB BLOOD ADD-ON Performing Organization Address City/State/ZIP Code Phon e Number [facility] [address] [facility] [address] [facility] Transfuse Red Blood Cells (11/11/2017 3:59 [...] 11/11/2017 3:5 1 PM CDT [facility] [place] [facility] Patient Name: Carol Cooley Procedure Date: [...] then will plan on transferrin g to [place] for further therapy. Findings: The esophagus was [...] Signature Prothrombin 9.4 8.8 - 11.9 11/11/2017 [facility] Time, P sec 12:58 PM CDT [facility] INR 0.9 0.9 - 1.2 11/11/2017 [facility] 12:58 PM CDT [facility] Comment: Standard intensity [...] Code Phon e Number [facility] [place] [address] [facility] Lactate (11/11/2017 12:39 PM CDT) P athologist Signature Lactate, P 2.1 0.6 - 2.3 11/11/2017 [facility] mmol/L 12:59 PM CDT [facility] [place] Specimen Anatomical Collection Method Collection Time Receive d Time (Source) Location / / Volume Laterality Blood (Blood, 11/11/2017 12:39 11/11/2017 Venous) PM CDT 12:42 PM CDT Nuno Love M.D. LAB BLOOD NON ADD-ON Performing Organization Address City/State/ZIP Code Phon e Number [facility] [place] [address] [facility] documented in this encounter Visit [...] 12 45 (New Bag - Provider: Cammie cShuster R.N.)1354 (Stopped - Provider: Cammie Schuster R.N.) [...] Provider, Automatic - Reason: Patient not available)1735 ([facility] Unhold - Provider: Transfer Provider, Automatic) 3 mL, intravenous, As needed, line care, Starting on Bryanna 11/11/17 at 1230, Prior to and following infusion and between multiple consecutive infusions: sodium chloride 0.9 % injection documented in this encounter Additional Health Concerns Assessment Noted Time PHQ-9 Depression Total Score: 7 04/07/2017 9:39 AM CDT documented as of this encounter Care Teams Medical Oncology Physician Relationship Specialty Start Date End Date Blaire Bundy P.A.-C. PCP - General 02/04/17 04/26/19 documented as of this encounter
--- OUTSIDE RECORDS SUMMARY | 2022-07-29 08:29 | XMS_ITS | Encounter Summary ---
:1985 Author Organization [facility] Address [address] [place] [address] Care Team Providers Name Role Phone Blaire Bundy P.A.-C. Primary Care Provider Reason for Referral Outpatient (Routine) - Closed Specialty Diagnoses / Procedures Referred By Contact Refer red To Contact General Surgery Diagnoses Appendicitis Acute Par Review Seng Reyna M.D. [facility] Region Procedures GNS POST OP [address] [place] [address] Referral ID Status Reason Start Date Expiration Date Visits Requ ested Visits Authorized [id number] Closed 09/09/2017 03/08/2018 1 1 Scheduling Instructions To see Dr. Monahan 09/15/2016 in [place] . LOGY PHARMACIST Reason for Visit Reason Comments Abdominal Pain [...] Expiration Date Visits Requ ested Visits Authorized [id number] 1 1 Encounter Details Date Type Department Care Team Description 09/08/2017 - Emergency [facility], Natalie Car M.D. [address] [place] [phone] Appendicitis Acute 09/09/2017 [facility] Helm M.D. [address] [place] [address] (Primary Dx) Center, Third Floor Jaquan Monahan D.O. [address] [place] [address] [place] [address] [address] [place] [address] Social History Tobacco Use Types [...] How often do you attend congregation or roman catholic More than 4 time [...] Comments Blood Pressure 126/63 09/09/2017 10:22 AM ONCOLOGY PHARMACIST Pulse 79 09/09/2017 10:22 AM ONCOLOGY PHARMACIST Temperature 36.7 ??C (98.1 ??F) 09/09/2017 10:22 AM ONCOLOGY PHARMACIST Respiratory Rate 18 09/09/2017 10:22 AM ONCOLOGY PHARMACIST Oxygen Saturation 94% 09/09/2017 10:22 AM ONCOLOGY PHARMACIST Inhaled Oxygen Concentration - - Weight 145 kg (319 lb 10.7 oz) 09/08/2017 2:13 PM ONCOLOGY PHARMACIST Height 157.5 cm (5' 2) 09/08/2017 10:09 AM ONCOLOGY PHARMACIST Body Mass Index 58.47 09/08/2017 10:09 AM ONCOLOGY PHARMACIST documented in this encounter Discharge Summaries Seng Reyna M.D. - 09/09/2017 9:51 AM CST INPATIENT DISCHARGE SUMMARY BRIEF OVERVIEW Discharge Provider: Taryn Ozuna M.D. Primary Care Providers: Blaire Thornton P.A.-C. (General) [address] [place] [phone] Primary Care Provider Primary Care Provider Other Providers: Admission Date: 09/08/2017 Discharge Date: 09/09/2017 PRINCIPAL DIAGNOSIS Appendicitis Acute SECONDARY DIAGNOSES Principal Problem: Appendicitis Acute Resolved Problems: * No resolved hospital problems. * Operative Procedures: Scheduled (Blank), Completed (Comp) or Canceled (Can) Case IDs Date Procedure Surgeon Location Status [id number] 09/08/17 LAPAROSCOPIC APPENDECTOMY Jaquan Monahan D.O. [facility] OR Comp DISCHARGE DISPOSITION Home or Self [...] Your Medications These medications were sent to [facility] - [address] [address] ?? ciprofloxacin 500 mg tablet ?? metroNIDAZOLE [...] ADMISSION ANESTHESIA FOLLOW-UP CONDITION AT DISCHARGE improved LOGY PHARMACIST documented in this encounter Discharge Instructions AttachmentsThe following attachments cannot be sent through Care Everywhere.Care Following Your Laparoscopy (Kazakh)documented in this encounter Medications at Time of [...] /or at baseline Post Op nausea/vomiting: none LOGY PHARMACIST documented in this encounter H&P Notes Jaquan [...] or fallopian tube. She gives informed consent. LOGY PHARMACIST documented in this encounter Nursing Notes Kiera [...] o-1 Refuses pain medication at this time LOGY PHARMACIST documented in this encounter OR Notes Op Note - Jaquan Monahan D.O. - 09/08/2017 4:35 PM CST FULL OP NOTE Procedure(s): LAPAROSCOPIC APPENDECTOMY Surgeon(s) and Role: * Jaquan Monahan D.O. - Primary Armhole Raiser Lockstitch: Lior PerezPBrittaneyNBrittaney; Nichole Allen L.P.N. Anesthesia Type: [...] implants in log * Jaquan Monahan D.O. LOGY PHARMACIST Brief Op Note - Jaquan Monahan D.O. [...] implants in log * Jaquan Monahan D.O. LOGY PHARMACIST documented in this encounter ED Notes Dimitri [...] for admission. He will contact the nursing food beverage supervisor to determine a plan of when [...] was going to talk with the nursing food beverage supervisor and the operating room about the [...] accurate and complete. Dimitri Car M.D. 09/08/172138 LOGY PHARMACIST documented in this encounter Plan of Treatment Scheduled Referrals Name Type Priority Associated Diagnoses Order S [facility] Surgery Outpatient Referral Routine Appendicitis Acute Expected: Post Op (clinic) 09/15/2017 (Approximate), Expires: 09/09/2020 documented as of this encounter Procedures Procedure Name Priority Date/Time Associated Comments Diagnosis CBC WITH Routine 09/09/2017 7:05 Results for DIFFERENTIAL, B AM ONCOLOGY PHARMACIST this procedu re are in the results section. INCENTIVE Routine 09/08/2017 6:39 SPIROMETRY - RT/RN PM ONCOLOGY PHARMACIST INCENTIVE Routine 09/08/2017 6:39 SPIROMETRY - RT/RN PM ONCOLOGY PHARMACIST INCENTIVE Routine 09/08/2017 6:39 SPIROMETRY - RT/RN PM ONCOLOGY PHARMACIST INCENTIVE Routine 09/08/2017 6:39 SPIROMETRY - RT/RN PM ONCOLOGY PHARMACIST INCENTIVE Routine 09/08/2017 6:39 SPIROMETRY - RT/RN PM ONCOLOGY PHARMACIST INCENTIVE Routine 09/08/2017 6:39 SPIROMETRY - RT/RN PM ONCOLOGY PHARMACIST INCENTIVE Routine 09/08/2017 6:39 SPIROMETRY - RT/RN PM ONCOLOGY PHARMACIST INCENTIVE Routine 09/08/2017 6:39 SPIROMETRY - RT/RN PM ONCOLOGY PHARMACIST INCENTIVE Routine 09/08/2017 6:39 SPIROMETRY - RT/RN PM ONCOLOGY PHARMACIST INCENTIVE Routine 09/08/2017 6:39 SPIROMETRY - RT/RN PM ONCOLOGY PHARMACIST INCENTIVE Routine 09/08/2017 6:39 SPIROMETRY - RT/RN PM ONCOLOGY PHARMACIST ADULT OXYGEN Routine 09/08/2017 5:43 THERAPY PM ONCOLOGY PHARMACIST PATHOLOGY SERVICES Routine 09/08/2017 5:08 Appendicitis Acute Results for PM ONCOLOGY PHARMACIST this procedure are in the results section. LAPAROSCOPIC 09/08/2017 4:06 Appendicitis Acute APPENDECTOMY PM ONCOLOGY PHARMACIST CT ABDOMEN PELVIS RAD - Semiurgent 09/08/2017 11:53 Re sults for WITH IV CONTRAST (Fast; most ED AM ONCOLOGY PHARMACIST this proc edure patients; some are in the inpatients) results section. IRIS MICROSCOPIC, U STAT 09/08/2017 11:03 Resu lts for AM ONCOLOGY PHARMACIST this procedure are in the results section. URINALYSIS WITH STAT 09/08/2017 11:03 Results for MICROSCOPIC IF AM ONCOLOGY PHARMACIST this procedur e INDICATED, U are in the results section. HEPATIC FUNCTION STAT 09/08/2017 10:50 Results for PANEL, S AM ONCOLOGY PHARMACIST this procedure are in the results section. CBC WITH STAT 09/08/2017 10:50 Results for DIFFERENTIAL, B AM ONCOLOGY PHARMACIST this procedu re are in the results section. C-REACTIVE PROTEIN STAT 09/08/2017 10:50 Resul ts for (CRP), S/P AM ONCOLOGY PHARMACIST this procedure are in the results section. HUMAN CHORIONIC STAT 09/08/2017 10:50 Results for GONADOTROPIN (HCG), AM ONCOLOGY PHARMACIST this pro cedure MARCI, are in the results section. LIPASE, S/P STAT 09/08/2017 10:50 Results for AM ONCOLOGY PHARMACIST this procedure are in the results section. LACTATE, B/P STAT 09/08/2017 10:50 Results for AM ONCOLOGY PHARMACIST this procedure are in the results section. BASIC METABOLIC STAT 09/08/2017 10:50 Results for PANEL, S/P AM ONCOLOGY PHARMACIST this procedure are in the results section. documented in this encounter Results (ABNORMAL) CBC with Differential (09/09/2017 7:05 AM ONCOLOGY PHARMACIST) [facility] Method Time Signature Hemoglobin 11.1 (L) 11.6 - 09/09/2017 [facility] 15.0 g/dL 7:11 AM [employer] [facility] [employer] [facility] Hematocrit 34.8 (L) 35.5 - 09/09/2017 [facility] 44.9 % 7:11 AM [employer] [facility] Erythrocytes 4.18 3.92 - 09/09/2017 [facility] 5.13 7:11 AM ONCOLOGY PHARMACIST HEALTH x10(12)/L [facility] [employer] LAB MCV 83.3 78.2 - 09/09/2017 [facility] 97.9 fL 7:11 AM [employer] [facility] RBC Distrib Width 13.6 12.2 - 09/09/2017 [facility] 16.1 % 7:11 AM [employer] [facility] Platelet Count 263 157 - 371 09/09/2017 [facility] x10(9)/L 7:11 AM [facility] Leukocytes 11.8 (H) 3.4 - 9.6 09/09/2017 [facility] x10(9)/L 7:11 AM [facility] Neutrophils 10.54 (H) 1.56 - 09/09/2017 [facility] 6.45 7:11 AM [facility] x[facility](9)/L [facility] Lymphocytes 0.65 (L) 0.95 - 09/09/2017 [facility] 3.07 7:11 AM [facility] HEALTH x10(9)/L [facility] Monocytes 0.57 0.26 - 09/09/2017 [facility] 0.81 7:11 AM [facility] x10(9)/L [facility] Eosinophils 0.01 (L) 0.03 - 09/09/2017 [facility] 0.48 7:11 AM [facility] x10(9)/L [facility] [place] [facility] Basophils 0.01 0.01 - 09/09/2017 [facility] 0.08 7:11 AM [facility] x10(9)/L [facility] Specimen Anatomical Collection Method Collection Time Receive d Time (Source) Location / / Volume Laterality Blood (Blood, 09/09/2017 7:05 AM 09/09/19 7:08 Venous) ONCOLOGY PHARMACIST AM ONCOLOGY PHARMACIST Jaquan Monahan D.O. LAB BLOOD ADD-ON Performing Organization Address City/State/ZIP Code Phon e Number [facility] [address] [place] [address] [facility] Pathology Services (09/08/2017 5:08 PM ONCOLOGY PHARMACIST) Component Value Ref Test Analysis Performed At [facility] Range Method Time Signature PATHOLOGY Patient Name: PUNEET CLAYTON LUZ [facility] SERVICES MR#: [id number] [facility] Submitting Physician: JAQUAN MONAHAN DO [id number] Specimen #[id number] Performing Lab: ??[facility] ? [address] [place] [address] Source: Appendix Clinical History/Pre-Op Appendicitis acute [K35.80] Gross Description Labeled appendix consists of a 6.1 cm in length x 1.2 cm in diameter appendix, with attached mesoappendix ( 2.4 cm). ??The serosa is gatica-brown with focal areas of white exudate. ??The muco sa is red-brown hemorrhagic to necrotic. ??An area of disruption is not grossly id entified. ??Chemical Dependency Counselor sections are submitted in cassette A1. KG/ed ?? Diagnosis Appendix, appendectomy: ACUTE APPENDICITIS WITH PERIAPPENDICITIS. Electronically Signed By JANNET HERNÁNDEZ MD - 09/10/2017 ed/09/10/2017 Specimen (Source) Anatomical Collection Method Collection Time Re ceived Time Location / / Volume Laterality Tissue (Appendix) 09/08/2017 5:08 PM ONCOLOGY PHARMACIST Comment: Acute appendicitis Jaquan Monahan D.O. LAB SURG PATH ORDERABLES Performing Organization Address City/State/ZIP Code Phon e Number [facility] [place] [address] [place] [address] CT Abdomen Pelvis with IV Contrast (09/08/2017 11:53 AM ONCOLOGY PHARMACIST) Anatomical Region Laterality Modality Abdomen, Pelvis N/A Computed Tomography Specimen (Source) Anatomical Collection Method Collection Time Re ceived Time Location / / Volume Laterality 09/08/2017 12:00 PM ONCOLOGY PHARMACIST Impressions 09/08/2017 12:07 PM ONCOLOGY PHARMACIST IMPRESSION: 1. ??Acute uncomplicated appendicitis. 2. ??Hepatic steatosis. 3. ??Prominent follicle right ovary. Narrative 09/08/2017 12:07 PM ONCOLOGY PHARMACIST EXAM: CT ABDOMEN PELVIS WITH IV CONTRAST [...] (ABNORMAL) Marly Mullen, U (09/08/2017 11:03 AM [facility]) Analysis Performed At Patho logist Time Signature White Blood 11-20 (A) /hpf 09/08/2017 [facility] Cells 11:13 AM [facility] Comment: ----REFERENCE VALUE---- Males: 0-3 Females: 0-10 Unknown: 0-10 Red Blood Cells Occ-2 0 - 2 /hpf 09/08/2017 11:[address] [facility] Mucus Present /hpf 09/08/2017 11:13 AM [facility] Squamous Epithelial Occ-3 /hpf 09/08/2017 11:13 AM [facility] Bacteria Present (A) None Seen 09/08/2017 11:13 AM [facility] Specimen Anatomical Collection Method Collection Time Receive d Time (Source) Location / / Volume Laterality Urine 09/08/2017 11:03 09/08/2017 AM ONCOLOGY PHARMACIST 11:05 AM ONCOLOGY PHARMACIST Dimitri Car M.D. LAB URINE ORDERABLES Performing Organization Address City/State/ZIP Code Phon e Number [facility] [address] [facility] [place] [address] [facility] (ABNORMAL) Urinalysis with Microscopic if Indicated (09/08/2017 11:03 AM ONCOLOGY PHARMACIST) Analysis Performed At Patho logist Time Signature Source Midstream 09/08/2017 [facility] 11:13 AM [facility] Clarity Slightly Clear 09/08/2017 [facility] Cloudy (A) 11:13 AM [facility] Color Yellow 09/08/2017 [facility] 11:13 AM [facility] Comment: ----REFERENCE VALUE---- Colorless Yellow Philomena Blood Negative Negative 09/08/2017 11:13 AM [facility] Nitrite Positive (A) Negative 09/08/2017 11:13 AM [facility] Leukocyte Esterase Moderate (A) Negative 09/08/2017 11:1 3 AM [facility] Protein, U Trace mg/dL 09/08/2017 11:13 AM [facility] Comment: ----REFERENCE VALUE---- Negative Trace Glucose Negative Negative mg/dL 09/08/2017 11:13 AM [facility] Ketone Negative Negative mg/dL 09/08/2017 11:13 AM [facility] Bilirubin Negative Negative 09/08/2017 11:13 AM [facility] pH 6.0 5.0 - 8.0 09/08/2017 11:13 AM [facility] Specific [place] 1.015 1.001 - 1.035 09/08/2017 11:13 AM [facility] Urobilinogen 0.2 0.2 - 1.0 09/08/2017 11:13 AM [facility] Specimen Anatomical Collection Method Collection Time Receive d Time (Source) Location / / Volume Laterality Urine (Urine, 09/08/2017 11:03 09/08/2017 Clean Catch) AM ONCOLOGY PHARMACIST 11:05 AM ONCOLOGY PHARMACIST Dimitri Car M.D. LAB URINE ORDERABLES Performing Organization Address City/State/ZIP Code Phon e Number [address] [place] [address] [facility] (ABNORMAL) CRP (C-Reactive Protein) (09/08/2017 10:50 AM ONCOLOGY PHARMACIST) Analysis Performed At Patho logist Time Signature C-Reactive 115.8 (H) <=8.0 mg/L 09/08/2017 [facility] Protein (CRP), 11:12 AM [facility] Specimen Anatomical Collection Method Collection Time Receive d Time (Source) Location / / Volume Laterality Blood (Blood, 09/08/2017 10:50 09/08/2017 Venous) AM ONCOLOGY PHARMACIST 10:52 AM ONCOLOGY PHARMACIST Dimitri Car M.D. LAB BLOOD ADD-ON Performing Organization Address City/State/ZIP Code Phon e Number [address] [address] [place] [facility] hCG (Human Chorionic Gonadotropin), Quantitative, (09/08/2017 10:50 AM ONCOLOGY PHARMACIST) P athologist Signature HCG, <0.5 IU/L 09/08/2017 [facility] Quantitative, 11:36 AM [facility] [place] [facility] Comment: Biotin has been identified by [...] Blood (Blood, 09/08/2017 10:50 09/08/2017 Venous) AM ONCOLOGY PHARMACIST 10:52 AM ONCOLOGY PHARMACIST Dimitri Car M.D. LAB BLOOD ADD-ON Performing Organization Address City/State/ZIP Code Phon e Number [facility] [place] [address] [facility] Lipase (09/08/2017 10:50 AM ONCOLOGY PHARMACIST) P athologist Signature Lipase, P 22 13 - 60 U/L 09/08/2017 [facility] 11:13 AM [facility] Specimen Anatomical Collection Method Collection Time Receive d Time (Source) Location / / Volume Laterality Blood (Blood, 09/08/2017 10:50 09/08/2017 Venous) AM ONCOLOGY PHARMACIST 10:52 AM ONCOLOGY PHARMACIST Dimitri Car M.D. LAB BLOOD ADD-ON Performing Organization Address City/[facility]/ZIP Code Phon e Number [facility] [place] [address] [facility] Lactate (09/08/2017 10:50 AM ONCOLOGY PHARMACIST) P athologist Signature Lactate, P 0.7 0.6 - 2.3 09/08/2017 [facility] mmol/L 11:11 AM [facility] Specimen Anatomical Collection Method Collection Time Receive d Time (Source) Location / / Volume Laterality Blood (Blood, 09/08/2017 10:50 09/08/2017 Venous) AM ONCOLOGY PHARMACIST 10:52 AM ONCOLOGY PHARMACIST Dmiitri Car M.D. LAB BLOOD NON ADD-ON Performing Organization Address City/State/ZIP Code Phon e Number [facility] [place] [address] [facility] (ABNORMAL) Hepatic Function Panel (09/08/2017 10:50 AM ONCOLOGY PHARMACIST) Patholo gist Method Time Signature Bilirubin, Total, S 1.1 <=1.2 09/08/2017 [facility] mg/dL 11:12 AM [facility] Bilirubin, Direct, S 0.2 0.0 - 0.3 09/08/2017 [facility] mg/dL 11:12 AM [facility] Aspartate 32 8 - 43 09/08/2017 [facility] Aminotransferase U/L 11:12 AM [facility] Alanine 83 (H) 7 - 45 09/08/2017 [facility] Aminotransferase U/L 11:12 AM [facility] Alkaline 101 (H) 37 - 98 09/08/2017 [facility] Phosphatase, S U/L 11:12 AM [facility] Albumin, S 3.9 3.5 - 5.0 09/08/2017 [facility] g/dL 11:12 AM [facility] Protein, Total, S 6.9 6.3 - 7.9 09/08/2017 [facility] g/dL 11:12 AM [facility] Specimen Anatomical Collection Method Collection Time Receive d Time (Source) Location / / Volume Laterality Blood (Blood, 09/08/2017 10:50 09/08/2017 Venous) AM ONCOLOGY PHARMACIST 10:52 AM ONCOLOGY PHARMACIST Dimitri Car M.D. LAB BLOOD ADD-ON Performing Organization Address City/State/ZIP Code Phon e Number [facility] [address] [place] [address] [place] [facility] BMP (Basic Metabolic Panel) (09/08/2017 10:50 AM ONCOLOGY PHARMACIST) P athologist Signature Potassium, P 4.2 3.6 - 5.2 09/08/2017 [facility] mmol/L 11:13 AM [facility] Sodium, P 135 135 - 145 09/08/2017 [facility] mmol/L 11:13 AM [facility] Chloride, P 99 98 - 107 09/08/2017 [facility] mmol/L 11:13 AM [facility] Bicarbonate, P 22 22 - 29 09/08/2017 [facility] mmol/L 11:13 AM [facility] Anion Gap, P 14 7 - 15 09/08/2017 [facility] 11:13 AM [facility] BUN (Blood Urea 7 6 - 21 09/08/2017 [facility] Nitrogen), P mg/dL 11:13 AM [facility] Creatinine 0.62 0.59 - 09/08/2017 [facility] 1.04 mg/dL 11:13 AM [facility] eGFR-Black/Afri >90 >=60 09/08/2017 [facility] can [place] mL/min/BSA 11:13 AM [facility] Comment: ----ADDITIONAL INFORMATION---- Estimated GFR calculated using the 2009 CKD_EPI creatinine equation. eGFR Non-Black/ >90 >=60 mL/min/BSA 09/08/2017 11:13 AM [facility] [place] [facility] Comment: ----ADDITIONAL INFORMATION---- Estimated GFR calculated using the 2009 CKD_EPI creatinine equation. Calcium, Total, P 9.1 8.9 - 10.1 mg/dL 09/08/2017 1 1:13 AM [facility] Glucose, P 104 70 - 140 mg/dL 09/08/2017 11:13 AM [facility] Specimen Anatomical Collection Method Collection Time Receive d Time (Source) Location / / Volume Laterality Blood (Blood, 09/08/2017 10:50 09/08/2017 Venous) AM ONCOLOGY PHARMACIST 10:52 AM [facility] Dimitri Car M.D. LAB BLOOD ADD-ON Performing Organization Address City/State/ZIP Code Phon e Number [facility] [address] [place] [address] [place] [facility] (ABNORMAL) CBC with Differential (09/08/2017 10:50 AM [facility]) [facility] Method Time Signature Hemoglobin 12.3 11.6 - 09/08/2017 [facility] 15.0 g/dL 10:56 AM [facility] Hematocrit 37.8 35.5 - 09/08/2017 [facility] 44.9 % 10:56 AM [facility] Erythrocytes 4.60 3.92 - 09/08/2017 [facility] 5.13 10:56 AM [facility] HEALTH x10(12)/L [facility] LAB MCV 82.2 78.2 - 09/08/2017 [facility] 97.9 fL 10:56 AM [facility] RBC Distrib Width 13.9 12.2 - 09/08/2017 [facility] 16.1 % 10:56 AM [facility] Platelet Count 293 157 - 371 09/08/2017 [facility] x10(9)/L 10:56 AM [facility] Leukocytes 15.8 (H) 3.4 - 9.6 09/08/2017 [facility] x10(9)/L 10:56 AM [facility] Neutrophils 13.48 (H) 1.56 - 09/08/2017 [facility] 6.45 10:56 AM [facility] x10(9)/L [facility] LAB Lymphocytes 1.35 0.95 - 09/08/2017 [facility] 3.07 10:56 AM [facility] x10(9)/L [facility] Monocytes 0.87 (H) 0.26 - 09/08/2017 [facility] 0.81 10:56 AM [facility] x10(9)/L [facility] LAB Eosinophils 0.04 0.03 - 09/08/2017 [facility] 0.48 10:56 AM [facility] x10(9)/L [facility] LAB Basophils 0.03 0.01 - 09/08/2017 [facility] 0.08 10:56 AM [facility] x10(9)/L [facility] LAB Specimen Anatomical Collection Method Collection Time Receive d Time (Source) Location / / Volume Laterality Blood (Blood, 09/08/2017 10:50 09/08/2017 Venous) AM ONCOLOGY PHARMACIST 10:52 AM ONCOLOGY PHARMACIST Dimitri Car M.D. LAB BLOOD ADD-ON Performing Organization Address City/State/ZIP Code Phon e Number [facility] [address] [place] [address] [place] documented in this encounter Visit Diagnoses Diagnosis Appendicitis Acute - Primary Appendicitis Acute documented in this encounter Administered Medications Inactive Administered Medications - up to 3 most recent administrations Medication Order MAR Action Action Date Dose Rate Site ciprofloxacin in D5W IVPB New Bag 09/08/2017 12:29 PM 400 mg 2 00 mL/hr Right Hand 400 mg (for_CIPRO) ONCOLOGY PHARMACIST 400 mg, intravenous, at 200 mL/hr, Administer over 60 Minutes, Once, On Wed09/08/17 at 1216, For 1 dose, premix bag, Drug Monitoring Program: Pharmacist to adjust medication order based on comorbities and indication., Indications: Appendicitis ciprofloxacin in D5W IVPB New Bag 09/09/2017 12:23 AM 400 mg 2 00 mL/hr Right Hand 400 mg (for_CIPRO) ONCOLOGY PHARMACIST 400 mg, intravenous, at 200 mL/hr, Administer over 60 Minutes, Once, On Bryanna 09/09/17 at 0030, For 1 dose, Start within 12 hours of last dose. premix bag, Drug Monitoring Program: Pharmacist to adjust medication order based on comorbities and indication., Indications: Prophylaxis, surgical heparin (porcine) 5,000 Given 09/08/2017 2:43 PM ONCOLOGY PHARMACIST 5,000 Units Abdominal Tissue unit/0.5 mL injection - ADS Override Pull Starting on Wed09/08/17 at 1426, For 1 dose, Created by cabinet override heparin (porcine) Given 09/09/2017 9:14 AM ONCOLOGY PHARMACIST 7,500 Units Left Lower Abdomen injection 7,500 Units 7,500 Units, subcutaneous, 3 times daily, First dose on Bryanna 09/09/17 at 0145 Given 09/09/2017 1:48 AM ONCOLOGY PHARMACIST 7,500 Units Right Lower Abdomen HYDROmorphone injection 0.5 mg (for_DILA UDID) Given 09/08/2017 2:40 PM ONCOLOGY PHARMACIST 0.5 mg 0.5 mg, intravenous, Every 1 hour PRN, moderate pain or score 4-6 of 10, Starting on Wed09/08/17 at 1253 iohexol 350 mg iodine/mL solution Given 09/08/2017 11:54 AM ONCOLOGY PHARMACIST 171 mL Right Hand 171 mL (for_OMNIPAQUE) 171 mL, intravenous, Once in imaging, contrast, Starting on Wed09/08/17 at 1059, For 1 dose ketorolac injection 30 mg Given 09/08/2017 10:57 AM ONCOLOGY PHARMACIST 30 mg Right Hand (for_TORADOL) 30 mg, intravenous, Once, On Wed09/08/17 at 1040, For 1 dose, Adult IV push rate: Over 15 seconds. Peds IV push rate: Over 1 minute. 60 mg dose only for IM, not recommended for IV., Drug Monitoring Program: Pharmacist to adjust medication order based on comorbities and indication. lactated ringers New Bag 09/08/2017 2:50 PM ONCOLOGY PHARMACIST 20 mL/hr 20 mL/hr 20 mL/hr, intravenous, Continuous, Starting on Wed09/08/17 at 1430, Pre-Op lactated ringers Rate/Dose Verify 09/08/2017 10:00 PM ONCOLOGY PHARMACIST 75 mL/hr 75 mL/hr 75 mL/hr, intravenous, Continuous, Starting on Wed09/08/17 at 2000 New Bag 09/08/2017 7:55 PM ONCOLOGY PHARMACIST 75 mL/hr 75 mL/hr metroNIDAZOLE in NaCl (iso-osm) New Bag 09/08/2017 1:39 PM ONCOLOGY PHARMACIST 500 mg 200 mL/hr IVPB 500 mg (for_FLAGYL) 500 mg, intravenous, at 200 mL/hr, Administer over 30 Minutes, Once, On Wed09/08/17 at 1210, For 1 dose, Indications: Appendicitis metroNIDAZOLE in NaCl (iso-osm) New Bag 09/09/2017 5:36 AM ONCOLOGY PHARMACIST 500 mg 200 mL/hr IVPB 500 mg (for_FLAGYL) 500 mg, intravenous, at 200 mL/hr, Administer over 30 Minutes, Every 8 hours, First dose on Wed09/08/17 at 2145, For 2 doses, Start within 8 hours of last dose., Indications: Prophylaxis, surgical New Bag 09/08/2017 9:25 PM ONCOLOGY PHARMACIST 500 mg 200 mL/hr morphine injection 4 mg Given 09/08/2017 10:57 AM ONCOLOGY PHARMACIST 4 mg 4 mg, intravenous, Every 20 min PRN, moderate pain or score 4-6 of 10, severe pain or score 7-10 of 10, Starting on Wed09/08/17 at 1038, For 3 doses NaCl 0.9 % bolus 1,000 New Bag 09/08/2017 10:58 AM 1,000 mL 2000 mL/hr Right Hand mL ONCOLOGY PHARMACIST 1,000 mL, intravenous, at 2,000 mL/hr, Administer over 0.5 Hours, Once, On Wed09/08/17 at 1040, For 1 dose NaCl 0.9% infusion New Bag 09/08/2017 11:27 AM 1,000 mL/hr 1000 mL/hr Right Aiken nd 1,000 mL/hr, ONCOLOGY PHARMACIST intravenous, Continuous, Starting on Wed09/08/17 at 1040, For Hydration ondansetron (PF) injection 4 mg (for_ZOF RAN) Given 09/08/2017 2:51 PM ONCOLOGY PHARMACIST 4 mg 4 mg, intravenous, Every 20 min PRN, nausea, vomiting, Starting on Wed09/08/17 at 1038, For 2 doses Given 09/08/2017 10:57 AM ONCOLOGY PHARMACIST 4 mg ondansetron (PF) injection 4 mg (for_ZOF RAN) 4 mg, intravenous, Every 6 hours PRN, na usea, vomiting, Starting on Wed09/08/17 at 1254 oxyCODONE IR tablet 5 mg (for_ROXICODONE ) Given 09/09/2017 5:45 AM ONCOLOGY PHARMACIST 5 mg 5 mg, oral, Every 4 hours PRN, mild pain or score 1-3 of 10, Starting on Wed09/08/17 at 1839 Given 09/09/2017 12:40 AM ONCOLOGY PHARMACIST 5 mg sodium chloride 0.9 % injection 10 mL 10 mL, intravenous, As needed, line care, Starting on Wed09/08/17 at 1037, Peripheral Intravenous Catheter and Rapid Infusion Cat heter, prior to blood sampling, post blood transfusion or post blood samplin g sodium chloride 0.9 % injection 10 Given 09/08/2017 11:55 AM ONCOLOGY PHARMACIST 10 mL Right Hand mL 10 mL, [...] % injection 80 Given 09/08/2017 11:09 AM ONCOLOGY PHARMACIST 80 mL Right Hand mL 80 mL, intravenous, Once, On Wed09/08/17 at 1109, For 1 dose documented in this encounter Active and Recently Administered Medications Times are shown in ONCOLOGY PHARMACIST. Scheduled Medication Order 09/07/2017 09/08/2017 09/09/2017 ciprofloxacin [...] R.N. - Comment: [facility] not to give had difficulity removing [...] Automatic - Reason: Patient not available)1811 ([facility] Unhold - Provider: Transfer Provider, Automatic)2100 (Not [...] - Pr ovider: Keiry Perales R.N.)1408 ([facility] Hold - Provider: Transfer Provider, Automatic - Reason: Patient not available)181 ([facility] Unhold - Provider: Transfer Provider, Automatic) 4 [...] (Given - Provider: Keiry Perales R.N.)1408 ([facility] Hold - Provider: Transfer Provider, Automatic - Reason: Patient not available)1451 (Given - Provider: Zelda Vilchis R.N.)181 ([facility] Unhold - Provider: Transfer Provider, Automatic) 4 mg, intravenous, Every 20 min PRN, [place], vomiting, Starting on Wed09/08/17 at 1038, For 2 doses ondansetron (PF) injection 4 mg (for_ZOFRAN) 1408 ([facility] Hold - Provider: Transfer Provider, Automatic - Reason: Patient not available)1448 (Dose Auto Held)181 ([facility] Unhold - Provider: Transfer Provider, Automatic) 4 [...] as of this encounter Care Teams Contracting Executive Relationship Specialty Start Date End Date Blaire Bundy P.A.-C. PCP - General 02/04/17 04/26/19 documented as of this encounter
--- OUTSIDE RECORDS SUMMARY | 2022-07-29 08:29 | XMS_ITS | Encounter Summary ---
:1985 Author Organization [facility] Address [address] [place] [address] Care Team Providers Name Role Phone Blaire Bundy P.A.-C. Primary Care Provider [phone] Reason for Visit Reason Comments Shortness of Breath pt was here Wed. and was dx with pleurisy and is not getting better. c/o SOB, heartburn, nausea and has white in her stool Encounter Details Date Type Department Care Team Description 11/07/2017 Emergency [place] [facility] Dimitri Car, Dil ated Common Bile Duct (Primary Dx); Department M.D. 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 - 11/07/2017 8:51 PM CDT YOU SHOULD NOT HAVE ANYTHING TO EAT OR DRINK AFTER 12 MIDNIGHT. YOU DO NEED A WATER CONTROL SUPERVISOR AFTER THE ERCP PLANNED FOR TOMORROW AFTERNOON TENTATIVELY. AttachmentsThe following attachments cannot be sent through Care Everywhere. About Your ERCP, (Endoscopic Retrograde Cholangiopancreatography) (Korean) documented in this encounter Medications at Time [...] with hyperactivity disorder presents ambulatory to the [place] [facility] with her friend via private [...] a cholecystectomy done. 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 [...] P athologist Signature HCG, <0.5 IU/L 11/07/2017 [facility] Quantitative, 7:25 PM CDT [facility] Comment: Biotin has been identified by [...] e Number [facility] [address] [place] [address] [facility] Lactate (11/07/2017 6:48 PM CDT) P athologist Signature Lactate, P 0.8 0.6 - 2.3 11/07/2017 [facility] mmol/L 7:08 PM [facility] Specimen Anatomical Collection Method Collection Time Receive d Time (Source) Location / / Volume Laterality Blood (Blood, 11/07/2017 6:48 PM 11/08/19 18 6:51 Venous) CDT PM CDT Dimitri Car M.D. LAB BLOOD NON ADD-ON Performing Organization Address City/State/ZIP Code Phon e Number [facility] [address] [place] [address] [facility] (ABNORMAL) Hepatic Function Panel (11/07/2017 6:48 PM CDT) [facility] Method Time Signature Bilirubin, Total, S 2.0 (H) <=1.2 11/07/2017 [facility] mg/dL 7:14 PM CDT [facility] Bilirubin, Direct, S 1.5 (H) 0.0 - 0.3 11/07/2017 [facility] mg/dL 7:14 PM CDT [facility] Aspartate 775 (H) 8 - 43 11/07/2017 [facility] Aminotransferase U/L 7:[address] [facility] Alanine 1877 (H) 7 - 45 11/07/2017 [facility] Aminotransferase U/L 7:[address] [facility] Alkaline 275 (H) 37 - 98 11/07/2017 [facility] Phosphatase, S U/L 7:14 PM CDT [facility] Albumin, S 4.0 3.5 - 5.0 11/07/2017 [facility] g/dL 7:14 PM CDT [facility] Protein, Total, S 7.1 6.3 - 7.9 11/07/2017 [facility] g/dL 7:14 PM T [facility] Specimen Anatomical Collection Method Collection Time Receive d Time (Source) Location / / Volume Laterality Blood (Blood, 11/07/2017 6:48 PM 11/08/19 18 6:51 Venous) CDT PM CDT Dimitri Car M.D. LAB BLOOD ADD-ON Performing Organization Address City/State/ZIP Code Phon e Number [facility] [address] [place], [place] [address] [address] [facility] BMP (Basic Metabolic Panel) (11/07/2017 6:48 PM CDT) athologist Signature Potassium, P 4.3 3.6 - 5.2 11/07/2017 [facility] mmol/L 7:11 PM T [facility] Sodium, P 139 135 - 145 11/07/2017 [facility] mmol/L 7:11 PM [facility] Chloride, P 100 98 - 107 11/07/2017 [facility] mmol/L 7:11 PM [facility] Bicarbonate, P 25 22 - 29 11/07/2017 [facility] mmol/L 7:11 PM [facility] Anion Gap, P 14 7 - 15 11/07/2017 [facility] 7:11 PM [facility] BUN (Blood Urea 16 6 - 21 11/07/2017 [facility] Nitrogen), P mg/dL 7:11 PM [facility] Creatinine 0.76 0.59 - 11/07/2017 [facility] 1.04 mg/dL 7:11 PM [facility] eGFR-Black/Afri >90 >=60 11/07/2017 [facility] can Grenadian mL/min/BSA 7:11 PM [facility] Comment: ----ADDITIONAL INFORMATION---- Estimated GFR calculated using the 2009 CKD_EPI creatinine equation. eGFR Non-Black/ >90 >=60 mL/min/BSA 11/07/2017 7:11 PM [facility] Grenadian [facility] Comment: ----ADDITIONAL INFORMATION---- Estimated GFR calculated using the 2009 CKD_EPI creatinine equation. Calcium, Total, P 9.5 8.9 - 10.1 mg/dL 11/07/2017 7 :11 PM T [facility] Glucose, P 129 70 - 140 mg/dL 11/07/2017 7:11 PM CDT [facility] Specimen Anatomical Collection Method Collection Time Receive d Time (Source) Location / / Volume Laterality Blood (Blood, 11/07/2017 6:48 PM 11/08/19 6:51 Venous) CDT PM CDT Dimitri Car M.D. LAB BLOOD ADD-ON Performing Organization Address City/State/ZIP Code Phon e Number [facility] [address] [place] [address] [facility] Lipase (11/07/2017 6:48 PM CDT) athologist Signature Lipase, P 45 13 - 60 U/L 11/07/2017 [facility] 7:[address] [facility] Specimen Anatomical Collection Method Collection Time Receive d Time (Source) Location / / Volume Laterality Blood 11/07/2017 6:48 PM 8 6:51 CDT PM CDT Dimitri Car M.D. LAB BLOOD ADD-ON Performing Organization Address City/State/ZIP Code Phon e Number [facility] [place] [address] [facility] CBC with Differential (11/07/2017 6:48 PM CDT) athologist Signature Hemoglobin 13.5 11.6 - 11/07/2017 [facility] 15.0 g/dL 6:[address] [facility] Hematocrit 42.1 35.5 - 11/07/2017 [facility] 44.9 % 6:[address] [facility] Erythrocytes 4.97 3.92 - 11/07/2017 [facility] 5.13 6:54 PM CDT [facility]ALTH x10(12)/L [facility] MCV 84.7 78.2 - 11/07/2017 [facility] 97.9 fL 6:[address] [facility] RBC Distrib Width 14.9 12.2 - 11/07/2017 [facility] 16.1 % 6:[address] [facility] Platelet Count 294 157 - 371 11/07/2017 [facility] x10(9)/L 6:[address] [facility] Leukocytes 7.6 3.4 - 9.6 11/07/2017 [facility] x10(9)/L 6:[address] [facility] Neutrophils 5.64 1.56 - 11/07/2017 [facility] 6.45 6:54 PM CDT [facility] x10(9)/L [facility] Lymphocytes 1.33 0.95 - 11/07/2017 [facility] 3.07 6:54 PM CDT [facility] x10(9)/L [facility] Monocytes 0.50 0.26 - 11/07/2017 [facility] 0.81 6:54 PM CDT [facility] x10(9)/L [facility] Eosinophils 0.04 0.03 - 11/07/2017 [facility] 0.48 6:54 PM CDT [facility] x10(9)/L [facility] Basophils 0.04 0.01 - 11/07/2017 [facility] 0.08 6:54 PM CDT [facility] x10(9)/L [facility] Specimen Anatomical Collection Method Collection Time Receive d Time (Source) Location / / Volume Laterality Blood (Blood, 11/07/2017 6:48 PM 11/08/19 18 6:51 Venous) CDT PM CDT Dimitri Car M.D. LAB BLOOD ADD-ON Performing Organization Address City/State/ZIP Code Phon e Number [facility] [address] [facility] [place] [address] [facility] documented in this encounter Visit Diagnoses [...] (for_DUO-NEB) (COMPLETED) 1851 (Given - Provid er: aCmmie Schuster R.N.) 3 mL, nebulization, Once, On [...] documented as of this encounter Care Teams Stunt Man Relationship Specialty Start Date End Date Blaire Bundy P.A.-C. PCP - General 02/04/17 04/26/19 documented as of this encounter
--- OUTSIDE RECORDS SUMMARY | 2022-07-29 08:29 | XMS_ITS | Encounter Summary ---
:1985 Author Organization [facility] Address [address] [place] [address] Care Team Providers Name Role Phone Blaire Bundy P.A.-C. Primary Care Provider Reason for Visit Reason Onset Date Comments Post Hospital Follow-up 09/09/2017 [place] 09/09/17 Encounter Details Date Type Department Care Team Description 09/09/2017 Clinical Communication Department of [facility] Medicine, Barbara Barrett R.N. Follow-up ([place] [address] 09/09/17) Clinic, in [address] [address] [facility] [phone] [place], [place] (Work) [phone] Social History Tobacco Use [...] often do you attend jehovah's witness or methodist More than 4 time s [...] feedback: Post hospital near miss assessment: none ATIONS ENGINEER Telephone Encounter - Barbara Bang R.N. - 09/09/2017 2:07 PM OPERATIONS ENGINEER Discharge date 09/09/17 at 1230. Reason for hospitalization Admission PRINCIPAL DIAGNOSIS Appendicitis Acute. Follow up scheduled for 09/20/17 @ [address] Reyna (surgical f/u). ATIONS ENGINEER documented in this encounter Plan of Treatment Not on filedocumented as of this encounter Visit Diagnoses Not on filedocumented in this encounter Additional Health Concerns Assessment Noted Time PHQ-9 Depression Total Score: 7 04/07/2017 9:39 AM CDT documented as of this encounter Care Teams Nailhead Operator Relationship Specialty Start Date End Date Blaire Bundy P.A.-C. PCP - General 02/04/17 04/26/19 documented as of this encounter
--- OUTSIDE RECORDS SUMMARY | 2022-07-29 08:29 | XMS_ITS | Encounter Summary ---
:1985 Author Organization [facility] Address [address] [place] [address] Care Team Providers Name Role Phone Blaire Bundy P.A.-C. Primary Care Provider Encounter Details Date Type Department Care Team Description 09/09/2017 Orders Only Department of General Lydia Crowley, Surgery in [address] [address] [place] [address]0 [facility] [phone] Social History Tobacco Use Types Packs/Day Years [...] How often do you attend hoahaoism or denominational More than 4 time s [...] documented as of this encounter Care Teams Lithographic Proofer Relationship Specialty Start Date End Date Blaire Bundy P.A.-C. PCP - General 02/04/17 04/26/19 documented as of this encounter
--- OUTSIDE RECORDS SUMMARY | 2022-07-29 08:29 | XMS_ITS | Encounter Summary ---
:1985 Author Organization [facility] Address [address] [place] [address] Care Team Providers Name Role Phone Blaire Bundy P.A.-C. Primary Care Provider Reason for Visit Reason Comments Post-op po lap appy 09-08-17 Outpatient (Routine) - Closed Specialty Diagnoses / Procedures Referred By Contact Refer red To Contact General Surgery Diagnoses Appendicitis Acute Par Review Seng Reyna M.D. [facility] Region Procedures G[facility] POST OP [address] [place] [address] Referral ID Status Reason Start Date Expiration Date Visits Requ ested Visits Authorized [id number] Closed 09/09/2017 03/08/2018 1 1 Encounter Details Date Type Department Care Team Description 09/17/2017 Office Visit Department of General Seng Reyna M. D. Appendectomy Laparoscopic Status Post (Primary Dx); Surgery in [facility] Hermelinda Hansen, Vianney-Marlyn., P.A. [address] [place] [id number] Appendicitis Acute [address] [address] Social History Tobacco Use Types [...] How often do you attend holiness or advent More than 4 time s [...] Comments Blood Pressure 115/48 09/17/2017 9:04 AM SEAM FELLER Pulse 84 09/17/2017 9:04 AM SEAM FELLER Temperature 36.6 ??C (97.9 ??F) 09/17/2017 9:04 AM SEAM FELLER Respiratory Rate - - Oxygen Saturation - - Inhaled Oxygen Concentration - - Weight - - Height - - Body Mass Index - - documented in this encounter Patient Instructions Patient InstructionsHermelinda Hansen P.A.-C., P.A. - 09/17/2017 9:00 AM SEAM FELLER Images from the original note were not [...] heals ??? Fever above 101.0??F (38.3??C) ?? [phone] [place] [address]. All rights reserved. This information is not intended as a substitute for professional medical care. Always follow your healthcare professional's instructions. FELLER documented in this encounter Progress Notes Hermelinda [...] from the hospital. She has been taking owjy-qyk-opivqbe pain medications as needed since. She is [...] PATHOLOGY SERVICES Patient Name: PUNEET CLAYTON MR#: [id number] Submitting Physician: JAQUAN MONAHAN DO [id number] Specimen #[id number] Performing Lab: [address] [address] Source: Appendix Clinical History/Pre-Op Appendicitis acute [K35.80] Gross Description Labeled appendix consists of a 6.1 cm in length x 1.2 cm in diameter appendix, with attached mesoappendix (2.4 cm). The serosa is gatica-brown with focal areas of white exudate. The mucosa is red-brown hemorrhagic to necrotic. An area of disruption is not grossly identified. Job Training Specialist sections are submitted in cassette A1. KG/ed [...] ongoing postoperative parameters including pain management with [id number] Tylenolor ibuprofen as needed, ongoing incision care, [...] concerns that arise. Hermelinda Hansen P.A.-C., P.A. FELLER documented in this encounter Plan of Treatment Not on filedocumented as of this encounter Visit Diagnoses Diagnosis Appendectomy Laparoscopic Status Post - Primary Appendicitis Acute documented in this encounter Additional Health Concerns Assessment Noted Time PHQ-9 Depression Total Score: 7 04/07/2017 9:39 AM CDT documented as of this encounter Care Teams Ict Support Technicians Relationship Specialty Start Date End Date Blaire Bundy P.A.-C. PCP - General 02/04/17 04/26/19 documented as of this encounter
--- OUTSIDE RECORDS SUMMARY | 2022-07-29 08:29 | XMS_ITS | Encounter Summary ---
:1985 Author Organization [facility] Address [address] [place] [address] Care Team Providers Name Role Phone Blaire Bundy P.A.-C. Primary Care Provider [phone] Reason for Visit Reason Comments Communication [facility] hospital follow-up Encounter Details Date Type Department Care Team Description 09/10/2017 Clinical Department of Suellen Beasley on ([facility] Internal R, R.N. 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 [facility] CLIENT SERVICES Telephone Encounter - Suellen Beasley R.N. - 09/10/2017 7:40 AM CST Discharge date 09/09/17 at 1230. Reason for hospitalization Appendicitis acute. Follow up scheduled for 09/20/17. [facility] CLIENT [facility] documented in this encounter Plan of Treatment Not on filedocumented as of this encounter Visit Diagnoses Not on filedocumented in this encounter Additional Health Concerns Assessment Noted Time PHQ-9 Depression Total Score: 7 04/07/2017 9:39 AM CDT documented as of this encounter Care Teams Ham Smoker Relationship Specialty Start Date End Date Blaire Bundy P.A.-C. PCP - General 02/04/17 04/26/19 documented as of this encounter
--- OUTSIDE RECORDS SUMMARY | 2022-07-29 08:29 | XMS_ITS | Encounter Summary ---
:1985 Author Organization [facility] Address [address] [place] [address] Care Team Providers Name Role Phone Blaire Bundy P.A.-C. Primary Care Provider [phone] Reason for Visit Reason Comments Chest Pain Pain With Breathing Encounter Details Date Type Department Care Team Description 11/04/2017 [facility] Berny Garcia M.D. [address] [place] [address] Pleurisy (Primary Dx) Department Erlin Garcia M.D. 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 Pleurisy (Swazi)documented in this encounter Medications at Time of [...] family history of her father having an OR in his 50s she is presenting now [...] Troponin T, S <0.01 <0.01 ng/mL 11/04/2017 [facility] 6:[address] [facility] Comment: Biotin has been identified by [...] City/State/ZIP Code Phon e Number [facility] [address] [place] [address] [facility] (ABNORMAL) D-Dimer (11/04/2017 5:43 PM CDT) athologist Signature D-Dimer, P 2.06 (H) <0.50 11/04/2017 [facility] mcg/mL FEU 5:[address] [facility] Comment: ----ADDITIONAL INFORMATION---- Results of this [...] City/State/ZIP Code Phon e Number [facility] [address] [facility] [place] [place] [address] [facility] (ABNORMAL) CMP (Comprehensive Metabolic Panel) (11/04/2017 5:43 PM CDT) athologist Signature Potassium, P 4.3 3.6 - 5.2 11/04/2017 [facility] mmol/L 6:03 PM [facility] Sodium, P 139 135 - 145 11/04/2017 [facility] mmol/L 6:03 PM [facility] Chloride, P 100 98 - 107 11/04/2017 [facility] mmol/L 6:03 PM [facility] Bicarbonate, P 26 22 - 29 11/04/2017 [facility] mmol/L 6:03 PM [facility] Anion Gap, P 13 7 - 15 11/04/2017 [facility] 6:03 PM [facility] BUN (Blood Urea 11 6 - 21 11/04/2017 [facility] Nitrogen), P mg/dL 6:03 PM [facility] Creatinine 0.69 0.59 - 11/04/2017 [facility] 1.04 mg/dL 6:03 PM [facility] eGFR-Black/Afri >90 >=60 11/04/2017 [facility] can [place] mL/min/BSA 6:03 PM [facility] Comment: ----ADDITIONAL INFORMATION---- Estimated GFR calculated using the 2009 CKD_EPI creatinine equation. eGFR Non-Black/ >90 >=60 mL/min/BSA 11/04/2017 6:03 PM [facility] [place] [facility] Comment: ----ADDITIONAL INFORMATION---- Estimated GFR calculated using the 2009 CKD_EPI creatinine equation. Calcium, Total, P 9.6 8.9 - 10.1 11/04/2017 6:03 PM [facility] mg/dL [facility] Glucose, P 98 70 - 140 mg/dL 11/04/2017 6:03 PM [facility] Protein, Total, P 7.5 6.3 - 7.9 g/dL 11/04/2017 6:03 P M [facility] Albumin, P 3.9 3.5 - 5.0 g/dL 11/04/2017 6:03 PM [facility] Aspartate 1084 (H) 8 - 43 U/L 11/04/2017 6:[address] [facility] Aminotransferase ([facility]), P [facility] Alkaline Phosphatase, P 167 (H) 37 - 98 U/L 11/04/2017 6:0 3 PM [facility] Alanine Aminotransferase 1350 (H) 7 - 45 U/L 11/04/2017 6:2 3 PM [facility] (ALT), [facility] Bilirubin, Total, P 2.8 (H) <=1.2 mg/dL 11/04/2017 6:03 PM [facility] Specimen Anatomical Collection Method Collection Time Receive d Time (Source) Location / / Volume Laterality Blood (Blood, 11/04/2017 5:43 PM 11/05/19 18 5:43 Venous) CDT CDT Berny Garcia M.D. LAB BLOOD ADD-ON Performing Organization Address City/State/ZIP Code Phon e Number [facility] [address] [facility] [place] [address] [facility] (ABNORMAL) CBC with Differential (11/04/2017 5:43 PM CDT) [facility] Method Time Signature Hemoglobin 13.5 11.6 - 11/04/2017 [facility] 15.0 g/dL 5:46 PM [facility] Hematocrit 41.5 35.5 - 11/04/2017 [facility] 44.9 % 5:46 PM [facility] Erythrocytes 5.08 3.92 - 11/04/2017 [facility] 5.13 5:46 PM [facility] x10(12)/L [facility] MCV 81.7 78.2 - 11/04/2017 [facility] 97.9 fL 5:[address] [facility] RBC Distrib Width 13.9 12.2 - 11/04/2017 [facility] 16.1 % 5:[address] [facility] Platelet Count 278 157 - 371 11/04/2017 [facility] x10(9)/L 5:[address] [facility] Leukocytes 4.8 3.4 - 9.6 11/04/2017 [facility] x10(9)/L 5:[address] [facility] Neutrophils 3.37 1.56 - 11/04/2017 [facility] 6.45 5:46 PM CDT [facility]ALTH x10(9)/L [facility] Lymphocytes 1.11 0.95 - 11/04/2017 [facility] 3.07 5:46 PM CDT [facility] x10(9)/L [facility] Monocytes 0.23 (L) 0.26 - 11/04/2017 [facility] 0.81 5:46 PM CDT HEALTH x10(9)/L [facility] Eosinophils 0.07 0.03 - 11/04/2017 [facility] 0.48 5:46 PM CDT HEALTH x10(9)/L [facility] Basophils 0.03 0.01 - 11/04/2017 [facility] 0.08 5:46 PM CDT HEALTH x10(9)/L [facility] Specimen Anatomical Collection Method Collection Time Receive d Time (Source) Location / / Volume Laterality Blood (Blood, 11/04/2017 5:43 PM 11/05/19 18 5:43 Venous) CDT PM CDT Berny Garcia M.D. LAB BLOOD ADD-ON Performing Organization Address City/State/ZIP Code Phon e Number [facility] [address] [facility] [address] [facility] DX Chest AP or PA [...] Signature Ventricular Rate 76 BPM MUSE ECG/Min CA Interval 158 ms MUSE QRSD Interval 82 ms MUSE QT Interval 358 ms MUSE QTC Interval 402 ms MUSE P Grant 47 degrees MUSE R Grant 38 degrees MUSE T Wave Grant 33 degrees MUSE Specimen Anatomical Collection Method [...] documented as of this encounter Care Teams Youth Pastor Relationship Specialty Start Date End Date Blaire Bundy P.A.-C. PCP - General 02/04/17 04/26/19 documented as of this encounter
--- OUTSIDE RECORDS SUMMARY | 2022-07-29 08:29 | XMS_ITS | Encounter Summary ---
:1985 Author Organization [facility] Address [address] [place] [address] Care Team Providers Name Role Phone Blaire Bundy P.A.-C. Primary Care Provider Reason for Visit Auth/Cert Specialty Diagnoses / Procedures Referred By Contact Refer red To Contact Diagnoses Appendicitis Acute Appendicitis Acute Procedures LAPAROSCOPIC APPENDECTOMY Referral ID Status Reason Start Date Expiration Date Visits Requ ested Visits Authorized [id number] 1 1 Encounter Details Date Type Department Care Team Description 09/08/2017 Anesthesia Event [facility] MAIN OR Nancy Smith M.D. [address] [facility] [address] [place] [address] [place], [place] [phone] (Wo rk) Anesthesia Record Procedure Summary [...] h andoff to the receiving staff during [facility] ch we 1. Identified the patient [...] 1111 b y 09/08/17; Placement Dimitri Chase, Kiear Bush, Time: 160; Removal JOSEFA, BRENDA R.N. Date: 09/09/17; Removal Time: 1111 ETT Placement Date: 09/08/17 1615 by 09/08/17 1735 b y 09/08/17; Placement Dimitri Chase Sawyer, M ichael D, Time: 161 (created BRENDA RIVERO APRN, GROUP WORKER via procedure documentation); Mask Ventilation: Easy [...] 8 by Abdomen; and Antionette Barnes, R.N. 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 d, Karena g WND ADH NEONAT 2X3.75 [...] How often do you attend worship or voodoo More than 4 time s [...] Anesthesia Postprocedure Evaluation - Dimitri Chase, JOSEFA, GROUP WORKER - 09/08/2017 5:50 PM CST Patient: Carol Cooley Procedure Summary Date: 09/08/17 Room / Location: [address] / [facility] OR Anesthesia Start: 160 Anesthesia Stop: [...] Post Op nausea/vomiting: none Hydration status: euvolemic TRIMMER Anesthesia Procedure Notes - Dimitri Chase APRN, [...] Procedure outcome: successful Airway event: no complications TRIMMER Anesthesia Preprocedure Evaluation - Nancy Smith M.D. [...] patient / legal guardian, or through an assisted living housekeeper; patient evaluated and approved for anesthesia / sedation. The use of blood products not discussed Discussed risk of potential decreased hormonal contraceptive efficacy for up to one week after anesthesia due to medication interactions. TRIMMER documented in this encounter Plan of Treatment Not on filedocumented as of this encounter Procedures Procedure Name Priority Date/Time Associated Comments Diagnosis LDA ANE ENDOTRACHEAL Routine 09/08/2017 4:27 PM R esults for this AIRWAY BOOT TRIMMER procedure are i n the results section. documented in this encounter Results LDA ANE ENDOTRACHEAL AIRWAY (09/08/2017 4:27 PM BOOT TRIMMER) Narrative Dimitri Chase APRN, CRNA - 09/08/19 18 4:27 PM BOOT TRIMMER Dimitri Chase APRN, CRNA ? 09/08/2017 ??4:31 [...] grade 2A ETT location: oral VL device: Motivating Wellness StorWORKING OUT WORKS CMAC blade size: D - adult Adult [...] Site dexamethasone injection Given 09/08/2017 4:07 PM BOOT TRIMMER 8 mg (for_DECADRON) As needed, Starting on Wed09/08/17 at 1607, Anesthesia Intra-op HYDROmorphone injection (for_DILAUDID) Given 09/08/2017 4:14 PM BOOT TRIMMER 1 mg As needed, moderate pain or score 4-6 of 10, Starting on Wed09/08/17 at 1614, Anesthesia Intra-op ketamine injection (for_KETALAR) Given 09/08/2017 4:06 PM BOOT TRIMMER 50 mg As needed, Starting on Wed09/08/17 at 1606, Anesthesia Intra-op ketorolac injection (for_TORADOL) Given 09/08/2017 5:25 PM BOOT TRIMMER 30 mg As needed, moderate pain or score 4-6 of 10, Starting on Wed09/08/17 at 1725, Anesthesia Intra-op lactated ringers New Bag 09/08/2017 4:36 PM BOOT TRIMMER intravenous, Continuous Infusion: Per Instructions PRN, Starting on Wed09/08/17 at 1636, Anesthesia Intra-op New Bag 09/08/2017 4:06 PM BOOT TRIMMER lidocaine (PF) (cardiac) injection Given 09/08/2017 4:11 PM BOOT TRIMMER 150 mg intravenous, As needed, Starting on Wed09/08/17 at 1611, Anesthesia Intra-op midazolam (PF) injection (for_VERSED) Given 09/08/2017 4:06 PM BOOT TRIMMER 2 mg intravenous, As needed, Starting on Wed09/08/17 at 1606, Anesthesia Intra-op ondansetron (PF) injection (for_ZOFRAN) Given 09/08/2017 5:11 PM BOOT TRIMMER 4 mg intravenous, As needed, nausea, vomiting, Starting on Wed09/08/17 at 1711, Anesthesia Intra-op propofol injection (for_DIPRIVAN) Given 09/08/2017 4:11 PM BOOT TRIMMER 300 mg intravenous, As needed, Starting on Wed09/08/17 at 1611, Anesthesia Intra-op rocuronium injection (for_ZEMURON) Given 09/08/2017 4:07 PM BOOT TRIMMER 80 mg intravenous, As needed, Starting on Wed09/08/17 at 1607, Anesthesia Intra-op sugammadex injection (for_BRIDION) Given 09/08/2017 5:17 PM BOOT TRIMMER 290 mg As needed, Starting on Wed09/08/17 at 1717, Anesthesia Intra-op documented in this encounter Additional Health Concerns Assessment Noted Time PHQ-9 Depression Total Score: 7 04/07/2017 9:39 AM CDT documented as of this encounter Care Teams Customer Security Clerk Relationship Specialty Start Date End Date Blaire Bundy P.A.-C. PCP - General 02/04/17 04/26/19 documented as of this encounter
--- OUTSIDE RECORDS SUMMARY | 2022-07-29 08:29 | XMS_ITS | Encounter Summary ---
:1985 Author Organization [facility] Address [address] [place] [address] Care Team Providers Name Role Phone Blaire [...] Duct; Radiology in Marko Stout M.D. [facility] [address] [phone] Social History Tobacco Use Types Packs/Day Years [...] How often do you attend religious or voodoo More than 4 time s [...] documented as of this encounter Care Teams Blower [employer]ast Furnace Relationship Specialty Start Date End Date Blaire Bundy P.A.-C. PCP - General 02/04/17 04/26/19 documented as of this encounter
--- OUTSIDE RECORDS SUMMARY | 2022-07-29 08:29 | XMS_ITS | Encounter Summary ---
:1985 Author Organization [facility] Address [address] [place] [address] Care Team Providers Name Role Phone Blaire Bundy P.A.-C. Primary Care Provider [phone] Reason for Visit Reason Comments Abdominal [...] Expiration Date Visits Requ ested Visits Authorized [id number] 1 1 Encounter Details Date Type Department Care Team Description 09/08/2017 Surgery [facility] MAIN OR Jaquan Monahan, LAPAROSCOPIC [address] D.OBrittaney APPENDECTOMY NEHEMIAH GRANT [phone] [facility] carlos W [phone] NEHEMIAH Nix [phone] (Wo rk) Social History [...] How often do you attend yarsanism or taoism More than 4 time s [...] Comments Blood Pressure 143/71 09/08/2017 2:13 PM SCIENCE MANAGER Pulse 116 09/08/2017 2:13 PM SCIENCE MANAGER Temperature 36.9 ??C (98.4 ??F) 09/08/2017 2:13 PM SCIENCE MANAGER Respiratory Rate 16 09/08/2017 2:13 PM SCIENCE MANAGER Oxygen Saturation 96% 09/08/2017 2:13 PM SCIENCE MANAGER Inhaled Oxygen Concentration - - Weight 145 kg (319 lb 10.7 oz) 09/08/2017 2:13 PM SCIENCE MANAGER Height 157.5 cm (5' 2) 09/08/2017 10:09 AM SCIENCE MANAGER Body Mass Index 58.47 09/08/2017 10:09 AM SCIENCE MANAGER documented in this encounter Discharge Summaries Seng Reyna M.D. - 09/09/2017 9:51 AM CST INPATIENT DISCHARGE SUMMARY BRIEF OVERVIEW Discharge Provider: Taryn Ozuna M.D. Primary Care Providers: Blaire Thornton P.A.-C. (General) [address] [place] [phone] Primary Care Provider Primary Care Provider Other Providers: Admission Date: 09/08/2017 Discharge Date: 09/09/2017 PRINCIPAL DIAGNOSIS Appendicitis Acute SECONDARY DIAGNOSES Principal Problem: Appendicitis Acute Resolved Problems: * No resolved hospital problems. * Operative Procedures: Scheduled (Blank), Completed (Comp) or Canceled (Can) Case IDs Date Procedure Surgeon Location Status [id number] 09/08/17 LAPAROSCOPIC APPENDECTOMY Jaquan Monahan D.O. [facility] OR Comp DISCHARGE DISPOSITION Home or Self Care [1] ACTIVE ISSUES REQUIRING FOLLOW UP Surgical Pathology OUTPATIENT FOLLOW UP No future appointments. TEST RESULTS PENDING AT DISCHARGE Pending Labs Order Current Status Pathology Services Collected (09/08/17 7396) DISCHARGE MEDICATIONS Your medication list START taking [...] Your Medications These medications were sent to [facility] [address] [address] ?? ciprofloxacin 500 mg tablet ?? metroNIDAZOLE [...] ADMISSION ANESTHESIA FOLLOW-UP CONDITION AT DISCHARGE improved NCE MANAGER documented in this encounter Discharge Instructions AttachmentsThe following attachments cannot be sent through Care Everywhere.Care Following Your Laparoscopy (Guamanian)documented in this encounter Medications at Time of [...] /or at baseline Post Op nausea/vomiting: none NCE MANAGER documented in this encounter H&P Notes Jaquan [...] or fallopian tube. She gives informed consent. NCE MANAGER documented in this encounter Nursing Notes Kiera [...] mucous membranes remain intact Adequate for Discharge NCE MANAGER Suni Perales R.N. - 09/09/2017 2:12 AM [...] this is a recent diagnosis for her. NCE MANAGER Charline Lundberg R.N. - 09/08/2017 9:42 PM [...] o-1 Refuses pain medication at this time NCE MANAGER documented in this encounter OR Notes Op Note - Jaquan Monahan D.O. - 09/08/2017 4:35 PM CST FULL OP NOTE Procedure(s): LAPAROSCOPIC APPENDECTOMY Surgeon(s) and Role: * Jaquan Monahan D.O. - Primary Frozen Foods Manager: Mandi Santoyo L.P.N.; Nichole Allen L.P.N. Anesthesia [...] implants in log * Jaquan Monahan D.O. NCE MANAGER Brief Op Note - Jaquan Monahan D.O. [...] implants in log * Jaquan Monahan D.O. NCE MANAGER documented in this encounter ED Notes Dimitri [...] for admission. He will contact the nursing shift supervisor to determine a plan of [...] was going to talk with the nursing shift supervisor and the operating room about [...] accurate and complete. Dimitri Car M.D. 09/08/172138 NCE MANAGER documented in this encounter Plan of Treatment Scheduled Referrals Name Type Priority Associated Diagnoses Order [facility] General Surgery Outpatient Referral Routine Appendicitis Acute Expected: Post Op (clinic) 09/15/2017 (Approximate), Expires: 09/09/2020 documented as of this encounter Procedures Procedure Name Priority Date/Time Associated Comments Diagnosis CBC WITH Routine 09/09/2017 7:05 Results for DIFFERENTIAL, B AM SCIENCE MANAGER this procedu re are in the results section. INCENTIVE Routine 09/08/2017 6:39 SPIROMETRY - RT/RN PM SCIENCE MANAGER INCENTIVE Routine 09/08/2017 6:39 SPIROMETRY - RT/RN PM SCIENCE MANAGER INCENTIVE Routine 09/08/2017 6:39 SPIROMETRY - RT/RN PM SCIENCE MANAGER INCENTIVE Routine 09/08/2017 6:39 SPIROMETRY - RT/RN PM SCIENCE MANAGER INCENTIVE Routine 09/08/2017 6:39 SPIROMETRY - RT/RN PM SCIENCE MANAGER INCENTIVE Routine 09/08/2017 6:39 SPIROMETRY - RT/RN PM SCIENCE MANAGER INCENTIVE Routine 09/08/2017 6:39 SPIROMETRY - RT/RN PM SCIENCE MANAGER INCENTIVE Routine 09/08/2017 6:39 SPIROMETRY - RT/RN PM SCIENCE MANAGER INCENTIVE Routine 09/08/2017 6:39 SPIROMETRY - RT/RN PM SCIENCE MANAGER INCENTIVE Routine 09/08/2017 6:39 SPIROMETRY - RT/RN PM SCIENCE MANAGER INCENTIVE Routine 09/08/2017 6:39 SPIROMETRY - RT/RN PM SCIENCE MANAGER ADULT OXYGEN Routine 09/08/2017 5:43 THERAPY PM SCIENCE MANAGER PATHOLOGY SERVICES Routine 09/08/2017 5:08 Appendicitis Acute Results for PM SCIENCE MANAGER this procedure are in the results section. LAPAROSCOPIC 09/08/2017 4:06 Appendicitis Acute APPENDECTOMY PM SCIENCE MANAGER CT ABDOMEN PELVIS RAD - Semiurgent 09/08/2017 11:53 Re sults for WITH IV CONTRAST (Fast; most ED AM SCIENCE MANAGER this proc edure patients; some are in the inpatients) results section. IRIS MICROSCOPIC, U STAT 09/08/2017 11:03 Resu lts for AM SCIENCE MANAGER this procedure are in the results section. URINALYSIS WITH STAT 09/08/2017 11:03 Results for MICROSCOPIC IF AM SCIENCE MANAGER this procedur e INDICATED, U are in the results section. HEPATIC FUNCTION STAT 09/08/2017 10:50 Results for PANEL, S AM SCIENCE MANAGER this procedure are in the results section. CBC WITH STAT 09/08/2017 10:50 Results for DIFFERENTIAL, B AM SCIENCE MANAGER this procedu re are in the results section. C-REACTIVE PROTEIN STAT 09/08/2017 10:50 Resul ts for (CRP), S/P AM SCIENCE MANAGER this procedure are in the results section. HUMAN CHORIONIC STAT 09/08/2017 10:50 Results for GONADOTROPIN (HCG), AM SCIENCE MANAGER this pro cedure MARCI, are in the results section. LIPASE, S/P STAT 09/08/2017 10:50 Results for AM SCIENCE MANAGER this procedure are in the results section. LACTATE, B/P STAT 09/08/2017 10:50 Results for AM SCIENCE MANAGER this procedure are in the results section. BASIC METABOLIC STAT 09/08/2017 10:50 Results for PANEL, S/P AM SCIENCE MANAGER this procedure are in the results section. documented in this encounter Results (ABNORMAL) CBC with Differential (09/09/2017 7:05 AM SCIENCE MANAGER) [facility] Method Time Signature Hemoglobin 11.1 (L) 11.6 - 09/09/2017 [facility] 15.0 g/dL 7:11 AM [employer] [facility] Hematocrit 34.8 (L) 35.5 - 09/09/2017 [facility] 44.9 % 7:11 AM [employer] [id number] Erythrocytes 4.18 3.92 - 09/09/2017 [facility] 5.13 7:11 AM SCIENCE MANAGER HEALTH x10(12)/L SYSTEM- [facility] MCV 83.3 78.2 - 09/09/2017 [facility] 97.9 fL 7:11 AM [employer] [id number] RBC Distrib Width 13.6 12.2 - 09/09/2017 [facility] 16.1 % 7:11 AM [employer] [id number] Platelet Count 263 157 - 371 09/09/2017 [facility] x10(9)/L 7:11 AM [employer] [id number] Leukocytes 11.8 (H) 3.4 - 9.6 09/09/2017 [facility] x10(9)/L 7:11 AM [employer] [id number] Neutrophils 10.54 (H) 1.56 - 09/09/2017 [facility] 6.45 7:11 AM SCIENCE MANAGER HEALTH x10(9)/L SYSTEM- [facility] Lymphocytes 0.65 (L) 0.95 - 09/09/2017 [facility] 3.07 7:11 AM SCIENCE MANAGER HEALTH x10(9)/L SYSTEM- [facility] Monocytes 0.57 0.26 - 09/09/2017 [facility] 0.81 7:11 AM SCIENCE MANAGER HEALTH x10(9)/L SYSTEM- [facility] Eosinophils 0.01 (L) 0.03 - 09/09/2017 [facility] 0.48 7:11 AM SCIENCE MANAGER HEALTH x10(9)/L [facility] Basophils 0.01 0.01 - 09/09/2017 [facility] 0.08 7:11 AM SCIENCE MANAGER HEALTH x10(9)/L [facility] Specimen Anatomical Collection Method Collection Time Receive d Time (Source) Location / / Volume Laterality Blood (Blood, 09/09/2017 7:05 AM 09/09/19 7:08 Venous) SCIENCE MANAGER AM SCIENCE MANAGER Jaquan Monahan D.O. LAB BLOOD ADD-ON Performing Organization Address City/[facility] Phon e Number [facility] [address] [place] [address] [facility] Pathology Services (09/08/2017 5:08 PM SCIENCE MANAGER) Component Value Ref Test Analysis Performed At [facility] Range Method Time Signature PATHOLOGY Patient Name: [facility] MR#: [id number] [facility] Submitting Physician: JAQUAN MONAHAN DO [id number] Specimen #[id number] Performing Lab: ??[facility] ? [address] [place] [id number] Source: Appendix Clinical History/Pre-Op Appendicitis acute [K35.80] Gross Description Labeled appendix consists of a 6.1 cm in length x 1.2 cm in diameter appendix, with attached mesoappendix ( 2.4 cm). ??The serosa is gatica-brown with focal areas of white exudate. ??The muco sa is red-brown hemorrhagic to necrotic. ??An area of disruption is not grossly id entified. ??Quarter Backer sections are submitted in cassette A1. KG/ed ?? Diagnosis Appendix, appendectomy: ACUTE APPENDICITIS WITH PERIAPPENDICITIS. Electronically Signed By JANNET HERNÁNDEZ MD - 09/10/2017 ed/09/10/2017 Specimen (Source) Anatomical Collection Method Collection Time Re ceived Time Location / / Volume Laterality Tissue (Appendix) 09/08/2017 5:08 PM SCIENCE MANAGER Comment: Acute appendicitis Jaquan Monahan D.O. LAB SURG PATH ORDERABLES Performing Organization Address City/[facility]/ZIP Code Phon e Number [address] [address] [address] Abdomen Pelvis with IV Contrast (09/08/2017 11:53 AM SCIENCE MANAGER) Anatomical Region Laterality Modality Abdomen, Pelvis N/A Computed Tomography Specimen (Source) Anatomical Collection Method Collection Time Re ceived Time Location / / Volume Laterality 09/08/2017 12:00 PM SCIENCE MANAGER Impressions 09/08/2017 12:07 PM SCIENCE MANAGER IMPRESSION: 1. ??Acute uncomplicated appendicitis. 2. ??Hepatic steatosis. 3. ??Prominent follicle right ovary. Narrative 09/08/2017 12:07 PM SCIENCE MANAGER EXAM: CT ABDOMEN PELVIS WITH IV CONTRAST [...] (ABNORMAL) Iris Microscopic, U (09/08/2017 11:03 AM SCIENCE MANAGER) Analysis Performed At Patho logist Time Signature White Blood 11-20 (A) /hpf 09/08/2017 [facility] Cells 11:13 AM [facility] Comment: ----REFERENCE VALUE---- Males: 0-3 Females: 0-10 Unknown: 0-10 Red Blood Cells Occ-2 0 - 2 /hpf 09/08/2017 11:[address] [facility] Mucus Present /hpf 09/08/2017 11:13 AM [facility] Squamous Epithelial Occ-3 /hpf 09/08/2017 11:13 AM [facility] Bacteria Present (A) None Seen 09/08/2017 11:13 AM [facility] Specimen Anatomical Collection Method Collection Time Receive d Time (Source) Location / / Volume Laterality Urine 09/08/2017 11:03 09/08/2017 AM SCIENCE MANAGER 11:05 AM SCIENCE MANAGER Dimitri Car M.D. LAB URINE ORDERABLES Performing Organization Address City/State/ZIP Code Phon e Number [facility] [address] [place] [address] [facility] (ABNORMAL) Urinalysis with Microscopic if Indicated (09/08/2017 11:03 AM SCIENCE MANAGER) Analysis Performed At Patho logist Time Signature Source Midstream 09/08/2017 [facility] 11:13 AM [facility] Clarity Slightly Clear 09/08/2017 [facility] Cloudy (A) 11:13 AM [facility] Color Yellow 09/08/2017 [facility] 11:13 AM [facility] Comment: ----REFERENCE VALUE---- Colorless Yellow Philomena Blood Negative Negative 09/08/2017 11:13 AM [facility] Nitrite Positive (A) Negative 09/08/2017 11:13 AM [facility] Leukocyte Esterase Moderate (A) Negative 09/08/2017 11:1 3 AM [facility] Protein, U Trace mg/dL 09/08/2017 11:13 AM [facility] Comment: ----REFERENCE VALUE---- Negative Trace Glucose Negative Negative mg/dL 09/08/2017 11:13 AM [facility] Ketone Negative Negative mg/dL 09/08/2017 11:13 AM [facility] Bilirubin Negative Negative 09/08/2017 11:13 AM [facility] pH 6.0 5.0 - 8.0 09/08/2017 11:13 AM [facility] LAB Specific North 1.015 1.001 - 1.035 09/08/2017 11:13 AM [facility] Urobilinogen 0.2 0.2 - 1.0 09/08/2017 11:13 AM [facility] Specimen Anatomical Collection Method Collection Time Receive d Time (Source) Location / / Volume Laterality Urine (Urine, 09/08/2017 11:03 09/08/2017 Clean Catch) AM SCIENCE MANAGER 11:05 AM SCIENCE MANAGER Dimitri Car M.D. LAB URINE ORDERABLES Performing Organization Address City/State/ZIP Code Phon e Number [facility] [address] [facility] [place] [address] [facility] (ABNORMAL) CRP (C-Reactive Protein) (09/08/2017 10:50 AM SCIENCE MANAGER) Analysis Performed At Patho logist Time Signature C-Reactive 115.8 (H) <=8.0 mg/L 09/08/2017 [facility] Protein (CRP), 11:12 AM [facility] Specimen Anatomical Collection Method Collection Time Receive d Time (Source) Location / / Volume Laterality Blood (Blood, 09/08/2017 10:50 09/08/2017 Venous) AM SCIENCE MANAGER 10:52 AM SCIENCE MANAGER Dimitri Car M.D. LAB BLOOD ADD-ON Performing Organization Address City/State/ZIP Code Phon e Number [facility] [address] [place] [address] [place] [address] [facility] hCG (Human Chorionic Gonadotropin), Quantitative, (09/08/2017 10:50 AM SCIENCE MANAGER) athologist Signature HCG, <0.5 IU/L 09/08/2017 [facility] Quantitative, 11:36 AM [facility] Comment: Biotin has been identified by [...] Blood (Blood, 09/08/2017 10:50 09/08/2017 Venous) AM SCIENCE MANAGER 10:52 AM SCIENCE MANAGER Dimitri Car M.D. LAB BLOOD ADD-ON Performing Organization Address City/State/ZIP Code Phon e Number [facility] [place] [address] [facility] Lipase (09/08/2017 10:50 AM SCIENCE MANAGER) athologist Signature Lipase, P 22 13 - 60 U/L 09/08/2017 [facility] 11:13 AM [facility] Specimen Anatomical Collection Method Collection Time Receive d Time (Source) Location / / Volume Laterality Blood (Blood, 09/08/2017 10:50 09/08/2017 Venous) AM SCIENCE MANAGER 10:52 AM SCIENCE MANAGER Dimitri Car M.D. LAB BLOOD ADD-ON Performing Organization Address City/State/ZIP Code Phon e Number [facility] [address] [facility] [place] [address] [facility] Lactate (09/08/2017 10:50 AM SCIENCE MANAGER) P athologist Signature Lactate, P 0.7 0.6 - 2.3 09/08/2017 [facility] mmol/L 11:11 AM [facility] Specimen Anatomical Collection Method Collection Time Receive d Time (Source) Location / / Volume Laterality Blood (Blood, 09/08/2017 10:50 09/08/2017 Venous) AM SCIENCE MANAGER 10:52 AM SCIENCE MANAGER Dimitri Car M.D. LAB BLOOD NON ADD-ON Performing Organization Address City/State/ZIP Code Phon e Number [facility] [place] [address] [facility] (ABNORMAL) Hepatic Function Panel (09/08/2017 10:50 AM SCIENCE MANAGER) Patholo gist Method Time Signature Bilirubin, Total, S 1.1 <=1.2 09/08/2017 [facility] mg/dL 11:12 AM [facility] Bilirubin, Direct, S 0.2 0.0 - 0.3 09/08/2017 [facility] mg/dL 11:12 AM [facility] Aspartate 32 8 - 43 09/08/2017 [facility] Aminotransferase U/L 11:12 AM [facility] ([facility] [employer] [facility] Alanine 83 (H) 7 - 45 09/08/2017 [facility] Aminotransferase U/L 11:12 AM [employer] (ALT), S [facility] Alkaline 101 (H) 37 - 98 09/08/2017 [facility] Phosphatase, S U/L 11:12 AM [facility] Albumin, S 3.9 3.5 - 5.0 09/08/2017 [facility] g/dL 11:12 AM [facility] Protein, Total, S 6.9 6.3 - 7.9 09/08/2017 [facility] g/dL 11:12 AM [facility] Specimen Anatomical Collection Method Collection Time Receive d Time (Source) Location / / Volume Laterality Blood (Blood, 09/08/2017 10:50 09/08/2017 Venous) AM SCIENCE MANAGER 10:52 AM [facility] Dimitri Car M.D. LAB BLOOD ADD-ON Performing Organization Address City/State/ZIP Code Phon e Number [facility] [address] [place] [address] [facility] BMP (Basic Metabolic Panel) (09/08/2017 10:50 AM SCIENCE MANAGER) P athologist Signature Potassium, P 4.2 3.6 - 5.2 09/08/2017 [facility] mmol/L 11:13 AM [facility] Sodium, P 135 135 - 145 09/08/2017 [facility] mmol/L 11:13 AM [facility] Chloride, P 99 98 - 107 09/08/2017 [facility] mmol/L 11:13 AM [facility] Bicarbonate, P 22 22 - 29 09/08/2017 [facility] mmol/L 11:13 AM [facility] Anion Gap, P 14 7 - 15 09/08/2017 [facility] 11:13 AM [facility] BUN (Blood Urea 7 6 - 21 09/08/2017 [facility] Nitrogen), P mg/dL 11:13 AM [facility] Creatinine 0.62 0.59 - 09/08/2017 [facility] 1.04 mg/dL 11:13 AM [facility] eGFR-Black/Afri >90 >=60 09/08/2017 [facility] can Maldivian mL/min/BSA 11:13 AM [facility] Comment: ----ADDITIONAL INFORMATION---- Estimated GFR calculated using the 2009 CKD_EPI creatinine equation. eGFR Non-Black/ >90 >=60 mL/min/BSA 09/08/2017 11:13 AM [facility] Maldivian [facility] Comment: ----ADDITIONAL INFORMATION---- Estimated GFR calculated using the 2009 CKD_EPI creatinine equation. Calcium, Total, P 9.1 8.9 - 10.1 mg/dL 09/08/2017 1 1:13 AM [facility] Glucose, P 104 70 - 140 mg/dL 09/08/2017 11:13 AM [facility] Specimen Anatomical Collection Method Collection Time Receive d Time (Source) Location / / Volume Laterality Blood (Blood, 09/08/2017 10:50 09/08/2017 Venous) AM SCIENCE MANAGER 10:52 AM SCIENCE MANAGER Dimitri Car M.D. LAB BLOOD ADD-ON Performing Organization Address City/State/ZIP Code Phon e Number [facility] [address] [place] [address] [facility] (ABNORMAL) CBC with Differential (09/08/2017 10:50 AM SCIENCE MANAGER) [facility] Method Time Signature Hemoglobin 12.3 11.6 - 09/08/2017 [facility] 15.0 g/dL 10:56 AM [facility] Hematocrit 37.8 35.5 - 09/08/2017 [facility] 44.9 % 10:56 AM [facility] Erythrocytes 4.60 3.92 - 09/08/2017 [facility] 5.13 10:56 AM [facility] HEALTH x10(12)/L [facility] MCV 82.2 78.2 - 09/08/2017 [facility] 97.9 fL 10:56 AM [facility] RBC Distrib Width 13.9 12.2 - 09/08/2017 [facility] 16.1 % 10:56 AM [facility] Platelet Count 293 157 - 371 09/08/2017 [facility] x10(9)/L 10:56 AM [facility] Leukocytes 15.8 (H) 3.4 - 9.6 09/08/2017 [facility] x10(9)/L 10:56 AM [facility] Neutrophils 13.48 (H) 1.56 - 09/08/2017 [facility] 6.45 10:56 AM [facility] [employer] x10(9)/L [facility] Lymphocytes 1.35 0.95 - 09/08/2017 [facility] 3.07 10:56 AM [facility] [employer] x10(9)/L [facility] [place] Monocytes 0.87 (H) 0.26 - 09/08/2017 [facility] 0.81 10:56 AM [facility] [employer] x10(9)/L SYSTEM [facility] Eosinophils 0.04 0.03 - 09/08/2017 [facility] 0.48 10:56 AM SCIENCE MANAGER HEALTH x10(9)/L SYSTEM- [facility] Basophils 0.03 0.01 - 09/08/2017 [facility] 0.08 10:56 AM SCIENCE MANAGER HEALTH x10(9)/L [facility]- [facility] Specimen Anatomical Collection Method Collection Time Receive d Time (Source) Location / / Volume Laterality Blood (Blood, 09/08/2017 10:50 09/08/2017 Venous) AM SCIENCE MANAGER 10:52 AM SCIENCE MANAGER Dimitri Car M.D. LAB BLOOD ADD-ON Performing Organization Address City/State/ZIP Code Phon e Number [facility] [address] [place] [address] [facility] documented in this encounter Visit Diagnoses Diagnosis Appendicitis Acute - Primary Appendicitis Acute Appendicitis Acute documented in this encounter Administered Medications Inactive Administered Medications - up to 3 most recent administrations Medication Order MAR Action Action Date Dose Rate Site ciprofloxacin in D5W IVPB New Bag 09/08/2017 12:29 PM 400 mg 2 00 mL/hr Right Hand 400 mg (for_CIPRO) SCIENCE MANAGER 400 mg, intravenous, at 200 mL/hr, Administer over 60 Minutes, Once, On Wed09/08/17 at 1216, For 1 dose, premix bag, Drug Monitoring Program: Pharmacist to adjust medication order based on comorbities and indication., Indications: Appendicitis ciprofloxacin in D5W IVPB New Bag 09/09/2017 12:23 AM 400 mg 2 00 mL/hr Right Hand 400 mg (for_CIPRO) SCIENCE MANAGER 400 mg, intravenous, at 200 mL/hr, Administer over 60 Minutes, Once, On Wed09/09/17 at 0030, For 1 dose, Start within 12 hours of last dose. premix bag, Drug Monitoring Program: Pharmacist to adjust medication order based on comorbities and indication., Indications: Prophylaxis, surgical heparin (porcine) 5,000 Given 09/08/2017 2:43 PM SCIENCE MANAGER 5,000 Units Abdominal Tissue unit/0.5 mL injection - ADS Override Pull Starting on Wed09/08/17 at 1426, For 1 dose, Created by cabinet override heparin (porcine) Given 09/09/2017 9:14 AM SCIENCE MANAGER 7,500 Units Left Lower Abdomen injection 7,500 Units 7,500 Units, subcutaneous, 3 times daily, First dose on Wed09/09/17 at 0145 Given 09/09/2017 1:48 AM SCIENCE MANAGER 7,500 Units Right Lower Abdomen HYDROmorphone injection 0.5 mg (for_DILA UDID) Given 09/08/2017 2:40 PM SCIENCE MANAGER 0.5 mg 0.5 mg, intravenous, Every 1 hour PRN, moderate pain or score 4-6 of 10, Starting on Wed09/08/17 at 1253 iohexol 350 mg iodine/mL solution Given 09/08/2017 11:54 AM SCIENCE MANAGER 171 mL Right Hand 171 mL (for_OMNIPAQUE) 171 mL, intravenous, Once in imaging, contrast, Starting on Wed09/08/17 at 1059, For 1 dose ketorolac injection 30 mg Given 09/08/2017 10:57 AM SCIENCE MANAGER 30 mg Right Hand (for_TORADOL) 30 mg, intravenous, Once, On Wed09/08/17 at 1040, For 1 dose, Adult IV push rate: Over 15 seconds. Peds IV push rate: Over 1 minute. 60 mg dose only for IM, not recommended for IV., Drug Monitoring Program: Pharmacist to adjust medication order based on comorbities and indication. lactated ringers New Bag 09/08/2017 2:50 PM SCIENCE MANAGER 20 mL/hr 20 mL/hr 20 mL/hr, intravenous, Continuous, Starting on Wed09/08/17 at 1430, Pre-Op lactated ringers Rate/Dose Verify 09/08/2017 10:00 PM SCIENCE MANAGER 75 mL/hr 75 mL/hr 75 mL/hr, intravenous, Continuous, Starting on Wed09/08/17 at 2000 New Bag 09/08/2017 7:55 PM SCIENCE MANAGER 75 mL/hr 75 mL/hr lidocaine 50 mL, bupivacaine PF Given 09/08/2017 5:17 PM SCIENCE MANAGER 9 m L Abdominal Tissue 50 mL 100 mL injection As needed, Starting on Wed09/08/17 at 1717, Intra-Op metroNIDAZOLE in NaCl (iso-osm) New Bag 09/08/2017 1:39 PM SCIENCE MANAGER 500 mg 200 mL/hr IVPB 500 mg (for_FLAGYL) 500 mg, intravenous, at 200 mL/hr, Administer over 30 Minutes, Once, On Wed09/08/17 at 1210, For 1 dose, Indications: Appendicitis metroNIDAZOLE in NaCl (iso-osm) New Bag 09/09/2017 5:36 AM SCIENCE MANAGER 500 mg 200 mL/hr IVPB 500 mg (for_FLAGYL) 500 mg, intravenous, at 200 mL/hr, Administer over 30 Minutes, Every 8 hours, First dose on Wed09/08/17 at 2145, For 2 doses, Start within 8 hours of last dose., Indications: Prophylaxis, surgical New Bag 09/08/2017 9:25 PM SCIENCE MANAGER 500 mg 200 mL/hr morphine injection 4 mg Given 09/08/2017 10:57 AM SCIENCE MANAGER 4 mg 4 mg, intravenous, Every 20 min PRN, moderate pain or score 4-6 of 10, severe pain or score 7-10 of 10, Starting on Wed09/08/17 at 1038, For 3 doses NaCl 0.9 % bolus 1,000 New Bag 09/08/2017 10:58 AM 1,000 mL 2000 mL/hr Right Hand mL SCIENCE MANAGER 1,000 mL, intravenous, at 2,000 mL/hr, Administer over 0.5 Hours, Once, On Wed09/08/17 at 1040, For 1 dose NaCl 0.9% infusion New Bag 09/08/2017 11:27 AM 1,000 mL/hr 1000 mL/hr Right Aiken nd 1,000 mL/hr, SCIENCE MANAGER intravenous, Continuous, Starting on Wed09/08/17 at 1040, For Hydration ondansetron (PF) injection 4 mg (for_ZOF RAN) Given 09/08/2017 2:51 PM SCIENCE MANAGER 4 mg 4 mg, intravenous, Every 20 min PRN, nausea, vomiting, Starting on Wed09/08/17 at 1038, For 2 doses Given 09/08/2017 10:57 AM SCIENCE MANAGER 4 mg ondansetron (PF) injection 4 mg (for_ZOF RAN) 4 mg, intravenous, Every 6 hours PRN, na usea, vomiting, Starting on Wed09/08/17 at 1254 oxyCODONE IR tablet 5 mg (for_ROXICODONE ) Given 09/09/2017 5:45 AM SCIENCE MANAGER 5 mg 5 mg, oral, Every 4 hours PRN, mild pain or score 1-3 of 10, Starting on Wed09/08/17 at 1839 Given 09/09/2017 12:40 AM SCIENCE MANAGER 5 mg sodium chloride 0.9 % injection 10 mL 10 mL, intravenous, As needed, line care, Starting on Wed09/08/17 at 1037, Peripheral Intravenous Catheter and Rapid Infusion Cat heter, prior to blood sampling, post blood transfusion or post blood samplin g sodium chloride 0.9 % injection 10 Given 09/08/2017 11:55 AM SCIENCE MANAGER 10 mL Right Hand mL 10 mL, [...] % injection 80 Given 09/08/2017 11:09 AM SCIENCE MANAGER 80 mL Right Hand mL 80 mL, intravenous, Once, On Wed09/08/17 at 1109, For 1 dose documented in this encounter Active and Recently Administered Medications Times are shown in SCIENCE MANAGER. Scheduled Medication Order 09/07/2017 09/08/2017 09/09/2017 ciprofloxacin [...] R.N. - Comment: incorrect order by [facility] T.O. not to give had difficulity [...] Provider: Keiry Perales R.N.)[id number] (Stopped - Provider: Keriy Perales R.N.) 1,000 mL, intravenous, at 2,000 [...] as of this encounter Care Teams Loan Documents Closer Relationship Specialty Start Date End Date Blaire Bundy P.A.-C. PCP - General 02/04/17 04/26/19 documented as of this encounter
--- OUTSIDE RECORDS SUMMARY | 2022-07-29 08:29 | XMS_ITS | Encounter Summary ---
:1985 Author Organization [facility] Address [address] [place] [address] Care Team Providers Name Role Phone Blaire Bundy P.A.-C. Primary Care Provider [phone] Encounter Details Date Type Department Care Team Description 11/08/2017 Orders Only Department of [facility] Of Bile Duct Gastroenterology in Marko Marcos M.D. Without Cholangitis [place], [place] [address] Or Cholecystitis With [address] [place], [place]struction ([place] [phone] Dx) [phone] Social History Tobacco Use Types Packs/Day Years [...] How often do you attend episcopal or samaritan More than 4 time s [...] to pay for the very basics like [facility] hat hard 07/09/2020 food, housing, medical care, [...] as of this encounter Care Teams Truck Car And Bus Cleaner Relationship Specialty Start Date End Date Blaire Bundy P.A.-C. PCP - General 02/04/17 04/26/19 documented as of this encounter
--- OUTSIDE RECORDS SUMMARY | 2022-07-29 08:29 | XMS_ITS | Encounter Summary ---
:1985 Author Organization [facility] Address [address] [place] [address] Care Team Providers Name Role Phone Blaire Bundy P.A.-C. Primary Care Provider [phone] Encounter Details Date Type Department Care Team Description 09/08/2017 Nurse Triage Department of [facility] Todd nikolas Marcos, RBrittaneyNBrittaney [facility], ([place] [address] [place] [address] Social History Tobacco Use Types [...] How often do you attend religious or denominational More than 4 time s [...] as of this encounter Care Teams Local Flatbed Driver Relationship Specialty Start Date End Date Blaire Bundy P.A.-C. PCP - General 02/04/17 04/26/19 documented as of this encounter
--- OUTSIDE RECORDS SUMMARY | 2022-07-29 08:30 | XMS_ITS | Encounter Summary ---
:1985 Author Organization [facility] Address [address] [place] [address] Care Team Providers Name Role Phone Catracho Bundy P.A.-C. Primary Care Provider Encounter Details Date Type Department Care Team Description 02/11/2017 Hospital Encounter [facility]X [facility] Marisol Galaviz, SUZI N, C.N.P. [address] [place], [place] [address] (Wo rk) Social History [...] How often do you attend congregational or jehovah's witness More than 4 time [...] given to the patient: Patient Education Materials: Digital Specialist Healthy Eating Habits During Digital Specialist Healthy Eating Habits During Its important to [...] water with a slice of lemon or [place]atak (these can also help ease an upset [...] light tuna, salmon, pollock, and catfish ?? [phone] [place] [address]. All rights reserved. This information is not intended as a substitute for professional medical care. Always follow your healthcare professional's instructions. This document has images extracted. Please consider using [employer] for all your patient education needs. Source: [facility] POWERCHART Document Id: [id number] documented in this encounter Miscellaneous Notes Miscellaneous - Marisol Marques, C.N.P., R.N. - 02/11/2017 10:38 AM CDT Ambulatory Discharge Medication List [facility] [address] [place], [place] [id number] Visit Information Name: PUNEET CLAYTON [facility] Number: [id number] Current Date: 02/11/2017 10:38:54 Attending Provider: MARISOL MARQUES CNP, food vendor Provider: CATRACHO NAZARIO PA-C PUNEET CLAYTON has [...] RN Signed On:11-FEB-2017 10:38:51 Additional Information: Source: [facility] POWERCHART Document Id: [id number] Miscellaneous - Marisol Marques C.N.P., R.N. - 02/11/2017 10:38 AM CDT Ambulatory Patient Summary [facility] [address] [facility], [address] [place], [place] [id number] Visit Information Name: PUNEET CLAYTON [facility] Number: [id number] Current Date: 02/11/2017 10:38:55 Physicians Attending Provider: MARISOL MARQUES CNP, food vendor Provider: CATRACHO NAZARIO PA-C PUNEET CLAYTON has [...] water with a slice of lemon or [place]at[place] (these can also help ease an upset [...] light tuna, salmon, pollock, and catfish ?? 2630-[address] [facility], [address] [place] [address], [place] [address]. All rights reserved. This information is not [...] if you dont have one. Go to [email or web address] and click on Create Your Account. Then, follow the directions to complete the online form. Youll be asked for your [facility] number which you can find at the top of this document. Your Goals/Additional instructions: This document has images extracted. Please consider using [employer] for all your patient education needs. Source: [facility] POWERCHART Document Id: [id number] Miscellaneous - Cleopatra Laguerre L.P.N. 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 Intake/History Adult Dishwashing Machine Operator Intake/History Entered On: 02/11/2017 10:26 CDT Performed [...] LAGUERRE LPN - 02/11/2017 10:23 CDT Source: [facility] POWERCHART Document Id: [id number]!41 documented in this encounter Plan of Treatment Not on filedocumented as of this encounter Visit Diagnoses Not on filedocumented in this encounter Additional Health Concerns Assessment Noted Time PHQ-9 Depression Total Score: 11 12/13/2014 9:50 AM CD T documented as of this encounter Care Teams Forestry Workers Relationship Specialty Start Date End Date Catracho Bundy P.A.-C. PCP - General 02/04/17 04/26/19 documented as of this encounter
--- OUTSIDE RECORDS SUMMARY | 2022-07-29 08:30 | XMS_ITS | Encounter Summary ---
:1985 Author Organization [facility] Address [address] [place] [address] Care Team Providers Name Role Phone Unavailable Primary Care Provider Unavailable Encounter Details Date Type Department Care Team Description 12/09/2016 Hospital Encounter HX [facility] Rabia Melchor A PRN, C.N.P. [address] [place], [place] [phone] (Wo rk) Social History [...] How often do you attend caodaism or religion More than 4 time s [...] oxygen. G1: 1 FT Date: 01-03-2008. Location [place]. weight 7#13oz Complications high blood pressure Delivery [...] Found Sexual history Brendon, . 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 Beef Farmer: Normal external genitalia. 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 Genetic testing and screening options discussed, booklet given. She is not interested in meeting with a genetic specialist or partner screening at this time. 6) BMI 59. planning delivery at [facility]. will plan for shared care. undecided on where anatomy scan ultrasound will be, here or at [facility]. 7) smoker, quitting. down to 1-2 cigs/week Referrals: _ Electronically Signed By: RABIA REAVES CNP, RN On: 12/09/2016 10:02 AM Modified by and Electronically Signed by: RABIA REAVES CNP RN On: 12/09/2016 10:02 AM Source: [facility] POWERCHART Document Id: [id number] documented in this encounter Nursing Notes Dawna [...] Medical ; Code: 305.1 ; Contributor System: View and Chew ; Last Updated: 12/12/2014 9:21 CDT ; [...] Medical ; Code: 784.0 ; Contributor System: BlucaratChart ; Last Updated: 12/12/2014 9:11 CDT ; [...] RABIA HOLMAN MD; Vocabulary: ICD-9-CM (SNOMED CT :868642809 ) Name of Problem: ; Onset Date: 10/03/2016 ; Recorder: DAWNA MADERA L.P.N.; Confirmation: Confirmed ; Classification: Medical ; Code: 702211308 ; Last Updated: 12/09/2016 8:32 CDT ; Life Cycle Status: Active ; Responsible Provider: DAWNA MADERA L.P.N.; Vocabulary: SNOMED CT Diagnoses(Active) Date: 12/09/2016 ; Confirmation: Confirmed ; Clinical Dx: ; Classification: Medical ; Code: SNOMED CT ; Probability: 0 ; Diagnosis Code: 484602192 - Procedure History (As Of: 12/09/2016 09:09:45 [...] Medical ; Code: 346.90 ; Contributor System: View and Chew ; Last Updated: 12/12/2014 9:11 CDT ; Life Cycle Status: Active ; Responsible Provider: RABIA HOLMAN MD; Vocabulary: ICD-9-CM Headache Name of Problem: Headache ; Onset Date: 10/24/2007 ; Confirmation: Confirmed ; Classification: Medical ; Code: 784.0 ; Contributor System: BlucaratChart ; Last Updated: 12/12/2014 9:11 CDT ; LifeCycle Status: Active ; Vocabulary: ICD-9-CM ; Comments: - Headache Dysthymic Disorder Name of Problem: Dysthymic Disorder ; Onset Date: 08/01/2010 ; Confirmation: Confirmed ; Classification: Medical ; Code: 300.4 ; Contributor System: BlucaratChart ; Last Updated: 12/12/2014 9:11 CDT ; Life Cycle Status: Active ; Vocabulary: ICD-9-CM ; Comments: - Dysthymic disorder Name of Problem: ; Recorder: NICHOLE ADDISON; Confirmation: Confirmed ; Classification: Medical ; Code: 564106442 ; Last Updated: 12/12/2014 9:12 CDT ; [...] Comments: 03/13/2014 13:47 - JORY COPPOLA F TURN DOWN WORKER brain cancer ; Value: Positive Grandfather: maternal Full Name: maternal ; Relation: Grandfather ; Nomenclature: Cancer ; Comments: 03/13/2014 13:47 - PLEINSTEPHANIEY F TURN DOWN WORKER larynx ; Value: Positive Grandmother: maternal Full Name: maternal ; Relation: Grandmother ; Nomenclature: Cancer ; Comments: 03/13/2014 13:47 - PLEIN JORY F TURN DOWN WORKER ear ; Value: Positive Anesth/Transfusion Transfusion Acceptable [...] None Behavioral Health Screen/Safety Assmt : No Christian Preference : No qualifying data available. DAWNA [...] CNP, SHRUTHI - 12/09/2016 10:03 CDT Source: [facility] POWERCHART Document Id: [id number] documented in this encounter Miscellaneous Notes Miscellaneous - Rabia Reaves R.N., [facility]- - 05/20/2017 9:10 AM CDT RE: From: RABIA REAVES R.N. [facility] To: PUNEET CLAYTON Sent: 05/20/2017 09:10:24 [...] From: PUNEET CLAYTON To: RABIA REAVES R.N. [facility] Sent: 05/19/2017 4:41:33 PM ([facility]-06:00) Central Time ([place] & [place]) Subject: RE: Should it hurt to walk though and when I move? From: RABIA REAVES R.N. [facility] To: PUNEET CLAYTON Sent: 05/19/2017 16:18:07 CDT Subject: RE: As you get closer to the end of the , it is not uncommon to have increased pelvic or vaginal pressure. If you have noticed a significant change in how you feel though, you should come in to beseen. From: PUNEET CLAYTON To: RABIA REAVES R.N. [facility] Sent: 05/19/2017 12:08:54 PM ([facility]-06:00) Central Time ([place] & [place]) Subject: [...] questions. have a good day! Rabia Source: [facility] POWERCHART Document Id: [id number] Miscellaneous - Rabia Reaves R.N., [facility] - 05/19/2017 4:18 PM CDT RE: From: RABIA REAVES R.N. [facility] To: PUNEET CLAYTON Sent: 05/19/2017 16:18:07 CDT Subject: RE: As you get closer to the end of the , it is not uncommon to have increased pelvic or vaginal pressure. If you have noticed a significant change in how you feel though, you should come in to beseen. From: PUNEET CLAYTON To: RABIA REAVES R.N. [facility] Sent: 05/19/2017 12:08:54 PM ([facility]-06:00) Central Time ([place] & [place]) Subject: [...] questions. have a good day! Rabia Source: [facility] Document Id: [id number] Miscellaneous - Rabia Reaves R.N. - 12/15/2016 [...] questions. have a good day! Rabia Source: [employer] Document Id: [id number] Electronically signed by Roland [facility] Book Or Script Editor [id number] at 02/02/2017 12:38 PM CDT Leilani - [...] x10(9)/L (150 - 450) 12/09/2016 10:15 Syphilis IgG-[place] Negative (Negative - ) 12/09/2016 10:15 HIV 1/2 Ab and Ag Scrn-[place] Negative (Negative - ) 12/09/2016 10:15 Rubella IgG-[place] Equivocal 12/09/2016 10:15 Rubella IgG Ab Index-[place] 0.9 12/09/2016 10:15 Hep Bs Ag-[place] Negative (Negative - ) 12/09/2016 09:45 C trach Amp Src-[place] vagina 12/09/2016 09:45 C trach Amp RNA-[place] Negative (Negative - ) 12/09/2016 09:45 N gonor Amp DNA-[place] Negative (Negative - ) 12/09/2016 09:45 N gonor Amp Src-[place] vagina 12/09/2016 09:45 UA Color Yellow (Colorless [...] (*) Present (None Seen - ) Source: [facility] Document Id: [id number] Electronically signed by Conversion, [facility] Book Or Script Editor [id number] at 02/02/2017 12:38 PM CDT Miscellaneous - Rabia Reaves R.N. - 12/11/2016 1:15 PM CDT Normal Results Letter December 11, 2016 PUNEET CLAYTON [address] [facility] [id number] Dear PUNEET CLAYTON, Your Pap was normal. Your next pap is due in 3 yrs. Please contact me if you have any questions. Result Name Current Result ASSISTANT DIRECTOR OF PLANT OPERATIONS Cytology 12/09/2016 Sincerely, RABIA REAVES [address] [place] [address] Electronic Signature Electronically Signed By: RABIA REAVES CNP, RN On: December 11, 2016 This document has images extracted. Source: [facility] [employer] Document Id: [id number] Electronically signed by Conversion, [employer] Book Or Script Editor [id number] at 02/02/2017 12:38 PM CDT Miscellaneous - Rabia Reaves, R.N. - 12/09/2016 10:04 AM CDT Ambulatory Patient Summary [facility] [address] [place], [address] [place], [place] [id number] Visit Information Name: FORREST PUNEET ALVARADO [facility] Number: [id number] Current Date: 12/09/2016 10:04:46 Physicians Attending Provider: RABIA REAVES CNP, research and development tester Provider: CATRACHO NAZARIO PA-C PUNEET CLAYTON has [...] you dont have one. Go to [email or web address] and click on Create Your Account. Then, follow the directions to complete the online form. Youll be asked for your [facility] number which you can find at the top of this document. Your Goals/Additional instructions: Source: [facility] POWERCHART Document Id: [id number] Leilani - Rabia Reaves R.N. - 12/09/2016 10:04 AM CDT Ambulatory Discharge Medication List [facility] [address], [address] [place], [place] [phone] Visit Information Name: PUNEET CLAYTON [facility] Number: [id number] Current Date: 12/09/2016 10:04:45 Attending Provider: RABIA REAVES CNP, research and development tester Provider: CATRACHO NAZARIO PA-C PUNEET CLAYTON has [...] RN Signed On:09-DEC-2016 10:04:43 Additional Information: Source: [facility] POWERCHART Document Id: [id number] Leilani - Alison Monsivais L.P.N. - 12/09/2016 9:48 AM CDT [employer] Documentation [employer] Documentation Entered On: 12/09/2016 9:48 CDT Performed On: 12/09/2016 9:48 CDT by ALISON MONSIVAIS LPN [employer] Documentation Exam/Procedure Performed : pelvic CD [employer] Present : Yes CD [employer] Name : ALISON Randall LPN - 12/09/2016 9:48 CDT Source: [facility] POWERCHART Document Id: [id number] documented in this encounter Plan of [...] procedure are in the results section. PATHOLOGY ASSISTANT DIRECTOR OF PLANT OPERATIONS Routine 12/09/2016 9:37 AM Results for this CYTOLOGY CDT procedure are i n the results section. documented in this encounter Results CBC without Differential (12/09/2016 10:15 AM CDT) P athologist Signature Leukocytes 7.7 3.5 - 10.5 POWERCHART X109L Erythrocytes 4.88 3.90 - 5.03 POWERCHART M1673C Hemoglobin 13.7 12.0 - 15.5 POWERCHART GDL [...] exposure to syp hilis. Test Performed by: [address] [address] Specimen (Source) Anatomical Collection Method Collection Time Re ceived Time Location / / Volume Laterality Blood 12/09/2016 10:15 AM CDT Rabia Reaves APRN, C.N.P. LAB BLOOD ADD-ON Performing Organization Address City/State/[facility] Code Phon e Number POWERCHART Rubella Antibodies, IgG (12/09/2016 10:15 AM CDT) Analysis Performed At Patho logist Time Signature HX Rubella Equivocal POWERCHART IgG-[place] Comment: Recommend follow-up testing in 10-14 day s if clinically indicated. REFERENCE VALUE------ Vaccinated: Positive (>=1.0 AI) Unvaccinated: Negative (<=0.7 AI) Rubella IgG Antibody Index 0.9 POW ERCHART Comment: Test Performed by: [facility] [address] [place] [address] Specimen (Source) Anatomical Collection Method Collection Time Re ceived Time Location / / Volume Laterality Blood 12/09/2016 10:15 AM CDT Rabia Reaves APRN, C.N.P. LAB MICROBIOLOGY - BLOOD ORD ERABLES Performing Organization Address [facility] Phon e Number POWERCHART HIV-1/-2 Ag and Ab Screen (12/09/2016 10:15 AM CDT) athologist Signature HIV-1/-2 Negative Negative POWERCHART Antibody Comment: Negative result does not rule out HIV in fection. If acute HIV infection is suspected in a hi gh-risk individual, submit plasma specimen for H IV-1 RNA quantification test (HIVDQ) and/or HIV-2 DNA/RNA test (FHV2Q). Test Performed by: [address] [address] Specimen (Source) Anatomical Collection Method Collection Time Re ceived Time Location / / Volume Laterality Blood 12/09/2016 10:15 AM CDT Rabia Reaves APRN, C.N.P. LAB MICROBIOLOGY - BLOOD ORD ERABLES Performing Organization Address City/[facility] Phon e Number POWERCHART Hepatitis B Surface Antigen (12/09/2016 10:15 AM CDT) P athologist Signature HBs Antigen, S Negative Negative POWERCHART Comment: Test Performed by: [facility] [address] [place] [id number] Specimen (Source) Anatomical Collection Method Collection Time [...] C.N.P. LAB BLOOD ADD-ON Performing Organization Address City/[facility]/ZIP Code Phon e Number POWERCHART ABSC GEL (12/09/2016 10:15 AM CDT) [facility] gist Method Time Signature HX ABSC Gel Negative ABSC POWERCHART Specimen (Source) Anatomical Collection Method Collection Time Re ceived Time Location / / Volume Laterality 12/09/2016 10:15 AM CDT Rabia Apollo Jean Paul RIVERO C.N.P. LAB HISTORICAL ORDERS Performing Organization Address City/[facility]/ZIP Code Phon e Number POWERCHART ABO/Rh (12/09/2016 10:15 AM CDT) athologist Signature ABORh Interp A NEG POWERCHART Specimen (Source) Anatomical Collection Method Collection Time Re ceived Time Location / / Volume Laterality 12/09/2016 10:15 AM CDT Rabia Bustillos Kendal Reaves APRNNBrittaneyPBrittaney LAB BLOOD BANK TEST ORDERABL ES Performing Organization Address [facility]/ZIP Code Phon e Number POWERCHART HX-N gonor Amp DNA (12/09/2016 9:45 AM CDT) P athologist Signature HXN gonor Amp Negative POWERCHART DNA-[place] Specimen (Source) Anatomical Collection Method Collection Time Re ceived Time Location / / Volume Laterality 12/09/2016 9:45 AM CDT Narrative POWERCHART - 12/10/2016 4:54 PM CDT ADDITIONAL INFORMATION This report is intended for use in clini huma monitoring and management of patients. It is not in tended for use in medical-legal applications. Test Performed by: [facility] - [address] [address] Kendal Erazo APRNN.Marcio LAB HISTORICAL ORDERS Performing Organization Address City/[facility]/ZIP Code Phon e Number POWERCHART HX-N gonor Amp Src (12/09/2016 9:45 AM CDT) P athologist Signature HXN gonor Amp vagina POWERCHART Src-[place] Specimen (Source) Anatomical Collection Method Collection Time Re ceived Time Location / / Volume Laterality 12/09/2016 9:45 AM CDT Kendal Erazo APRNN.P. LAB HISTORICAL ORDERS Performing Organization Address City/[facility] Code Phon e Number POWERCHART HX-C trach Amp RNA (12/09/2016 9:45 AM CDT) [facility] gist Method Time Signature Chlamydia Negative [...] APRNN.P. LAB HISTORICAL ORDERS Performing Organization Address City/[facility]/ZIP Code Phon e Number POWERCHART HX-C trach Amp Src (12/09/2016 9:45 AM CDT) P athologist Signature HXC trach Amp vagina POWERCHART Src-[place] Specimen (Source) Anatomical Collection Method Collection Time Re ceived Time Location / / Volume Laterality 12/09/2016 9:45 AM CDT Rabia Reaves APRN C.N.P. LAB HISTORICAL ORDERS Performing Organization Address City/[facility]/ZIP Code Phon e Number POWERCHART (ABNORMAL) Bacterial Culture, Aerobic, Urine (12/09/2016 9:45 AM CDT) Patholo gist Method Time Signature Bacterial EC Susceptibl POWERCHART Culture, (POSITIVE) Aerobic, Urine HXPre URINE, CLEAN POWERCHART VOID HXPre Pending POWERCHART HXPre Pending-[facility] [address] [place] [phone] Comment: URINE, CLEAN VOID Pending Pending-[facility] [address] [place] [address] HXPre URINE, CLEAN VOID POWERCHART HXPre >[id number] COL/ML ESCHERICHIA COLI POWERCHART HXPre >[id number] COL/ML MULTIPLE ORGANISMS SUGGESTING PROBABLE POWERCHART CONTAMINATION HXPre PRELIMINARY, FINAL RESULT TO FOLLOW POWERCHART HXPre Pending-[facility] POWERCHART [address] [place] [address] Comment: URINE, CLEAN VOID >[id number] COL/ML ESCHERICHIA COLI >[id number] COL/ML MULTIPLE ORGANISMS SUGGES TING PROBABLE CONTAMINATION PRELIMINARY, FINAL RESULT TO FOLLOW Pending-[facility] [address] [place] [address] HXFinal EC POWERCHART Comment: URINE, CLEAN VOID >[id number] COL/ML ESCHERICHIA COLI >[id number] COL/ML MULTIPLE ORGANISMS SUGGES TING PROBABLE CONTAMINATION FINAL 12/12/2016-[facility] [address] [place] [address] Escherichia coli Specimen (Source) Anatomical Collection Method [...] - GENERAL O RDERABLES Performing Organization Address City/[facility] Phon e Number POWERCHART (ABNORMAL) Urinalysis, Complete, Includes Microscopic (12/09/2016 9:45 AM CDT) [facility] Method Time Signature HXUr Color Yellow [...] Leukocyte Esterase Large (A) Negative POWERCHART Specific Mchenry, POCT, U 1.021 ELANA RCHART Comment: Reference Range Specific Mchenry: 1.000-1.035 HXUR WBC. 4-10 None Seen HPF [...] C.N.P. LAB URINE ORDERABLES Performing Organization Address [facility] Phon e Number POWERCHART Pathology ASSISTANT DIRECTOR OF PLANT OPERATIONS Cytology (12/09/2016 9:37 AM CDT) Specimen (Source) Anatomical Collection Method Collection Time Re ceived Time Location / / Volume Laterality 12/09/2016 9:37 AM CDT Narrative LUZ ELENA MAXWELL - 12/11/2016 11:20 AM CD T Pat: PUNEET CLAYTON ?([id number]) Age/Sex: 30 ??F ??Loc: ? -00 (RWN ) CoPath ??LIUDMILA: 12/09/16 09:37 ??REC: 16:00 ??PHYS: , Cytology ?ThinPrep cervical/endocerv Patient Name: PUNEET CLAYTON MR#: [id number] Submitting Physician: RABIA REAVES BOOKING MANAGER ??[id number] Specimen #[id number] Performing Lab: ??[address] [address] CLINICAL HISTORY: Last menstrual period: Status: Specimen [...] results have been experie nced. Rabia Reaves POSTDOCTORAL RESEARCH ASSOCIATE, C.N.P. LAB PAP COPATH ORDERABLES Performing Organization Address City/State/ZIP Code Phon e Number LUZ ELENA MAXWELL documented in this encounter Visit Diagnoses Not on filedocumented in this encounter Additional Health Concerns Assessment Noted Time PHQ-9 Depression Total Score: 11 12/13/2014 9:50 AM CD T documented as of this encounter
--- OUTSIDE RECORDS SUMMARY | 2022-07-29 08:30 | XMS_ITS | Encounter Summary ---
:1985 Author Organization [facility] Address [address] [place] [address] Care Team Providers Name Role Phone Blaire [...] How often do you attend anglican or orthodox More than 4 time s [...] in this encounter Results HX Syphilis Antibody [place], S (06/23/2017 8:47 AM CDT) [facility] Method Time Signature HX Syphilis Negative Negative [facility] Igg Ab LABORATORIES - W/Reflex, S [facility] Comment: Peripheral IV ? No serologic evidence of exposure to syp hilis. ? Specimen Anatomical Collection Method Collection Time Receive d Time (Source) Location / / Volume Laterality 06/23/2017 8:47 AM 7 8:47 CDT AM CDT Narrative [facility] - 06/23/2017 12:57 PM CDT Peripheral IV Carol Hoskins M.D. LAB HISTORICAL ORDERS Performing Organization Address City/State/ZIP Code Phon e Number [facility] - [address] [place], [place] [address] [facility] documented in this encounter Visit Diagnoses Not on filedocumented in this encounter Additional Health Concerns Assessment Noted Time PHQ-9 Depression Total Score: 7 04/07/2017 9:39 AM CDT documented as of this encounter Care Teams Clinical Fellow Relationship Specialty Start Date End Date Blaire Bundy PGladys. PCP - General 02/04/17 04/26/19 documented as of this encounter
--- OUTSIDE RECORDS SUMMARY | 2022-07-29 08:30 | XMS_ITS | Encounter Summary ---
:1985 Author Organization [facility] Address [address] [place] [address] Care Team Providers Name Role Phone Unavailable Primary Care Provider Unavailable Encounter Details Date Type Department Care Team Description 11/16/2016 Hospital Encounter HX [facility] Keith Nguyen M.D. [address] [place] [address] (Wo rk) Social History Tobacco [...] Name MBO Review Rapid Strep A Source: [facility] [employer] Document Id: [id number] Electronically signed by Conversion, [facility] Rn Appeals [id number] at 02/02/2017 2:11 AM CDT documented in [...] Strep A Screen (11/16/2016 9:30 AM CDT) [facility] Method Time Signature HXRapid Strep POWERCHART Confirmation HXPre Pending POWERCHART HXFinal NEG POWERCHART HXFinal [facility] POWERCHART [facility] [address] Specimen Anatomical Collection Method Collection Time Receive d Time (Source) Location / / Volume Laterality Throat 11/16/2016 9:30 AM 7 9:30 CDT AM CDT Keith Nguyen M.D. LAB MICROBIOLOGY - GENERAL O RDERABLES Performing Organization Address City/State/ZIP Code Phon e Number POWERCHART Rapid Strep A Screen (11/16/2016 9:30 AM CDT) [facility] Method Time Signature HXStrep A POWERCHART [...]
--- OUTSIDE RECORDS SUMMARY | 2022-07-29 08:30 | XMS_ITS | Encounter Summary ---
:1985 Author Organization [facility] Address [address] [place] [address] Care Team Providers Name Role Phone Blaire Bundy P.A.-C. Primary Care Provider [phone] Encounter Details Date Type Department Care [...] How often do you attend holiness or spiritism More than 4 time s [...] Organization Address City/State/ZIP Code Phon e Number IIKS IIKS NA documented in this encounter Visit Diagnoses Not on filedocumented in this encounter Additional Health Concerns Assessment Noted Time PHQ-9 Depression Total Score: 7 04/07/2017 9:39 AM CDT documented as of this encounter Care Teams Tax Agent Relationship Specialty Start Date End Date Blaire Bundy P.A.-C. PCP - General 02/04/17 04/26/19 documented as of this encounter
--- OUTSIDE RECORDS SUMMARY | 2022-07-29 08:30 | XMS_ITS | Encounter Summary ---
:1985 Author Organization [facility] Address [address] [place] [address] Care Team Providers Name Role Phone Unavailable Primary Care Provider Unavailable Encounter Details Date Type Department Care Team Description 01/07/2017 Hospital Encounter HX [facility] [address] [place] [phone] (Wo rk) Social History Tobacco Use [...] How often do you attend restoration or mandaen More than 4 time s [...] Ordered: OV Est Pt Level 4 - 60182 - 25 min 2. Elevated Blood Pressure [...] Ordered: OV Est Pt Level 4 - 73441 - 25 min 3. High Risk NOS As per #2. Recommended f/u with OB. Ordered: OV Est Pt Level 4 - 16872 - 25 min Cough NOS Infection Urinary [...] HOLMAN MD On: 01/14/2017 06:39 AM Source: [facility] POWERCHART Document Id: [id number] documented in this encounter H&P Notes Puneet Lewis, R.N. - 01/07/2017 10:41 AM CDT Puneet Lewis RN, [employer] Nurse Practitioner Residency [...] PRN Allergies: penicillins Environmental/Occupational Conditions: Works in [employer] at a [employer]. Social History: Patient reports smoking cessation about [...] HOLMAN MD On: 01/24/2017 09:59 PM Source: [facility] [employer] Document Id: [id number] documented in this encounter Miscellaneous Notes Miscellaneous [...] care. Thanks, Puneet Lewis (DNP student) Source: [facility] [employer] Document Id: [id number] Miscellaneous - Leonora Holman M.D. - 01/07/2017 10:03 AM CDT Ambulatory Patient Summary [address] [place] [id number] Visit Information Name: PUNEET CLAYTON [facility] Number: [id number] Current Date: 01/07/2017 10:03:11 [...] if you dont have one. Go to [email or web address] and click on Create Your Account. Then, follow the directions to complete the online form. Youll be asked for your [facility] number which you can find at the top of this document. Your Goals/Additional instructions: Source: [facility] POWERCHART Document Id: [id number] Miscellrenee - Leonora Holman M.D. - 01/07/2017 10:03 AM CDT Ambulatory Discharge Medication List [address] [place] [id number] Visit Information Name: PUNEET CLAYTON [facility] Number: [id number] Current Date: 01/07/2017 10:03:10 [...] MD Signed On:07-JAN-2017 10:01:26 Additional Information: Source: [facility] POWERCHART Document Id: [id number] Leilani - Leonora Holman M.D. - 01/07/2017 10:01 AM CDT Work Excuse January 07, 2017 PUNEET CLAYTON [address] [place] [id number] Dear PUNEET CLAYTON, You were examined in [...] due to acute illness. Sincerely, LEONORA ABAD [address] [place] [address] Electronic Signature Electronically Signed By: LEONORA HOLMAN MD On: January 07, 2017 This document has images extracted. Source: [facility] [employer] Document Id: [id number] Miscellaneous - Roosevelt Louise L.P.N. - 01/07/2017 [...] LOUISE LPN - 01/07/2017 8:55 CDT [facility] Document Id: [id number] CDT!8 Miscellaneous - Roosevelt Louise L.P.N. - 01/07/2017 8:51 AM CDT Adult Hands And Dial Inspector Intake/History Document Has Been Updated Adult Hands And Dial Inspector Intake/History Entered On: 01/07/2017 8:54 CDT Performed On: 01/07/2017 8:51 CDT by DANI, ROOSEVELT L ESTIMATING MANAGER Intake Chief Complaint : URI for 1 month Cough productive green 14-15 weeks preg Would like note to be off work DANIROOSEVELT MENDOZA Apollo ESTIMATING MANAGER - 01/07/2017 8:59 CDT Temperature Core : [...] 2 inch(es), 62 inch(es)) DANIROOSEVELT MENDOZA Apollo ESTIMATING MANAGER - 01/07/2017 8:51 CDT General Info Information Given By : Patient Languages : Ugandan Is Patient Female and 13-50 no hysterectomy [...] LOUISE LPN - 01/07/2017 8:51 CDT [facility] Document Id: [id number] CDT!3 documented in this encounter Plan of [...] M.D. LAB URINE ORDERABLES Performing Organization Address City/[facility] Phon e Number POWERCHART (ABNORMAL) Urinalysis, Routine (01/07/2017 9:21 AM CDT) P athologist Signature Clarity Clear Clear POWERCHART HXUr Color Yellow Colorless POWERCHART Specific 1.010 POWERCHART [place], POCT, U Comment: Reference Range Specific [place]: 1.000-1.035 pH, POCT, Urine 6.0 <5.0 POWERCHART [...] M.D. LAB URINE ORDERABLES Performing Organization Address City/State/[facility] Phon e Number POWERCHART documented in this encounter Visit Diagnoses Not on filedocumented in this encounter Additional Health Concerns Assessment Noted Time PHQ-9 Depression Total Score: 11 12/13/2014 9:50 AM CD T documented as of this encounter
--- OUTSIDE RECORDS SUMMARY | 2022-07-29 08:30 | XMS_ITS | Encounter Summary ---
:1985 Author Organization [facility] Address [address] [place] [address] Care Team Providers Name Role Phone Catracho Bundy P.A.-C. Primary Care Provider Encounter Details Date Type Department Care Team Description 03/11/2017 Hospital Encounter [facility] Leonora Melchor, Maureen TARIQ, C.N.P. [address] [place], [place] [phone] (Wo rk) Social History [...] How often do you attend gnosticism or zoroastrianism More than 4 time s [...] List [facility] [address], [address] [place], [place] [phone] Visit Information Name: PUNEET COOLEY [facility] Number: [id number] Current Date: 03/11/2017 15:28:15 Attending Provider: LEONORA VILLASEÑOR R.N., [facility] Primary Care Provider: ACTRACHO NAZARIO PA-C COOLEY PUNEET ALVARADO has been [...] WHNP-BC Signed On:11-MAR-2017 15:28:14 Additional Information: Source: [facility] POWERCHART Document Id: [id number] Miscellaneous - Leonora Villaseñor R.N., WHNP-BC - 03/11/2017 3:28 PM CDT Ambulatory Patient Summary [facility] [address], [address] [place], [place] [phone] Visit Information Name: PUNEET COOLEY [facility] Number: [id number] Current Date: [...] Appointments Date Time Location Provider 04/07/2017 09:00 [facility] FILLING MACHINE OPERATOR Leonora Villaseñor NP Attention: Contact your local [...] Youll be asked for your [facility] number which you can find at the top of this document. Your Goals/Additional instructions: Source: [facility] POWERCHART Document Id: [id number] Miscellaneous - Dawna Madera L.P.NBrittaney - 03/11/2017 2:39 PM CDT Adult Sash Clamp Operator Intake/History Adult Sash Clamp Operator Intake/History Entered On: 03/11/2017 14:43 CDT [...] Preferred Communication Mode : Verbal Languages : Belarusian Is Patient Female and 13-50 no hysterectomy [...] MADERA L.P.N. - 03/11/2017 14:39 CDT Source: [facility] [employer] Document Id: [id number] CDT!40 documented in this encounter Plan of [...] exposure to syp hilis. Test Performed by: [place] [id number] Specimen (Source) Anatomical Collection Method Collection Time Re ceived Time Location / / Volume Laterality Blood 03/11/2017 2:24 PM CDT Marisol Irving APRN, C.N.P. LAB BLOOD ADD-ON Performing Organization Address City/[facility] Code Phon e Number POWERCHART POWERCHART NA (ABNORMAL) CBC without Differential (03/11/2017 2:24 PM CDT) Analysis Performed At Patho logist Time Signature Leukocytes 9.6 3.5 - 10.5 POWERCHART X109L Erythrocytes 3.95 3.90 - POWERCHART 5.03 B2041Y Hemoglobin 11.6 (L) 12.0 - POWERCHART 15.5 [...] LAB BLOOD ADD-ON Performing Organization Address City/[facility]/ZIP Code Phon e Number POWERCHART POWERCHART [...] LAB BLOOD ADD-ON Performing Organization Address City/[facility]/ZIP Code Phon e Number POWERCHART POWERCHART NA documented in this encounter Visit Diagnoses Not on filedocumented in this encounter Additional Health Concerns Assessment Noted Time PHQ-9 Depression Total Score: 11 12/13/2014 9:50 AM CD T documented as of this encounter Care Teams Structures Assembler Relationship Specialty Start Date End Date Catracho Bundy P.A.-C. PCP - General 02/04/17 04/26/19 documented as of this encounter
--- OUTSIDE RECORDS SUMMARY | 2022-07-29 08:30 | XMS_ITS | Encounter Summary ---
:1985 Author Organization [facility] Address [address] [place] [address] Care Team Providers Name Role Phone Blaire Bundy P.A.-C. Primary Care Provider [phone] Reason for Visit Reason Comments Sore Throat sore throat since Wednesday, no fever, no bodyaches, headaches, dry cough Appointment Request (Routine) - Incomplete Specialty Diagnoses / Procedures Referred By Contact Refer red To Contact Referral ID Status Reason Start Date Expiration Date Visits V isits Requested Authorized [id number] Incomplete 08/02/2017 01/29/2018 1 1 Encounter Details Date Type Department Care Team Description 08/03/2017 Office Visit Department of [facility] Erin Bundy P.A.-C. [address] [place] [address] Sore Throat (Primary Dx); Medicine, Deb Brown, CST, C.N.P. [address] [place] [address] [facility], in [address] [phone] Social History Tobacco Use Types [...] How often do you attend anabaptist or denominational More than 4 time s [...] Comments Blood Pressure 139/65 08/03/2017 8:38 AM SUPERVISOR [employer]IC [employer]S Pulse 79 08/03/2017 8:38 AM SUPERVISOR [employer]ENIC ARTS Temperature 36.3 ??C (97.3 ??F) 08/03/2017 8:38 AM SUPERVISOR [employer]S Respiratory Rate 16 08/03/2017 8:38 AM SUPERVISOR [employer]ENIC ARTS Oxygen Saturation 98% 08/03/2017 8:38 AM SUPERVISOR [employer]ENIC [employer]S Inhaled Oxygen Concentration - - Weight 147 kg (323 lb 10.2 oz) 08/03/2017 8:38 AM SUPERVISOR [employer] Height 158 cm (5' 2.21) 08/03/2017 8:38 AM SUPERVISOR [employer]IC [employer]S Body Mass Index 58.8 08/03/2017 8:38 AM SUPERVISOR [employer] documented in this encounter Progress Notes Deb [...] viral illness. She was instructed to use rled-eup-zmcvuof pain analgesics and increased fluids for symptom management. We discussed the use of honey as needed for symptom management. She was instructed to contact the clinic with worsening or no improvement in symptoms. All questions were answered. She left in no acute distress. Dbe Enamorado C.N.P., R.N. [employer]ISOR [employer] documented in this encounter Plan of Treatment Not on filedocumented as of this encounter Procedures Procedure Name Priority Date/Time Associated Diagnosis Comme nts BACTERIAL CULTURE, Routine 08/03/2017 4:12 PM Res ults for this THROAT SUPERVISOR [employer] procedure are i n the results section. RAPID STREP A Routine 08/03/2017 9:27 AM Sore Throat Results for this SCREEN SUPERVISOR [employer] procedure are i n the results section. documented in this encounter Results Bacterial Culture, Throat (08/03/2017 4:12 PM SUPERVISOR [employer]) [facility] Method Time Signature Throat No growth of 08/05/2017 [facility] Culture Streptococcus 6:38 AM SUPERVISOR SCENIC ARTS [facility] pyogenes [facility] Specimen Anatomical Collection Method Collection Time Receive d Time (Source) Location / / Volume Laterality Throat Swab 08/03/2017 4:12 PM 7 4:12 SUPERVISOR [employer] PM SUPERVISOR [employer] Deb Enamorado APRN, C.N.P. LAB MICROBIOLOGY - GENE RAL ORDERABLES Performing Organization Address City/[facility]/ZIP Code Phon e Number [facility] [address] [place] [address], [place] [address] [facility] Rapid Strep A Screen Throat (08/03/2017 9:27 AM SUPERVISOR [employer]ENIC [employer]S) athologist Signature Rapid Strep A Negative Negative 08/03/2017 [facility] Screen 9:52 AM [facility] Specimen Anatomical Collection Method Collection Time Receive d Time (Source) Location / / Volume Laterality Varies (Throat) 08/03/2017 9:27 AM 2016 9:36 SUPERVISOR SCENIC ARTS AM SUPERVISOR [employer]S Deb Enamorado APRN, C.N.P. LAB MICROBIOLOGY - GENE RAL ORDERABLES Performing Organization Address City/[facility]/ZIP Code Phon e Number [facility] [address] [place] [phone] [place] [address] LAB documented in this encounter Visit Diagnoses Diagnosis Sore Throat - Primary Cough Unspecified Type documented in this encounter Additional Health Concerns Assessment Noted Time PHQ-9 Depression Total Score: 7 04/07/2017 9:39 AM CDT documented as of this encounter Care Teams Office Employee Relationship Specialty Start Date End Date Blaire Bundy P.A.-C. PCP - General 02/04/17 04/26/19 documented as of this encounter
--- OUTSIDE RECORDS SUMMARY | 2022-07-29 08:30 | XMS_ITS | Encounter Summary ---
:1985 Author Organization [facility] Address [address] [place] [address] Care Team Providers Name Role Phone Catracho Bundy P.A.-C. Primary Care Provider [phone] Encounter Details Date Type Department Care Team Description 06/08/2017 Hospital Encounter [facility] Leonora Melchor, Maureen TARIQ, C.N.P. [address] [place], [place] [phone] (Wo rk) Social History [...] status: none position: vertex via ultrasound in [place]. Electronically Signed By: LEONORA VILLASEÑOR R.N., WHNP-BC On: 06/08/2017 09:29 AM Source: [facility] POWERCHART Document Id: [id number] documented in this encounter Nursing Notes VoCleopatra corona L.P.N. - 06/08/2017 9:02 AM CDT Ambulatory Patient Education The following Patient Education Materials have been given to the patient: Patient Education Materials: Transfer And Pumphouse Operator Chief What Is Group B Strep? Transfer And Pumphouse Operator Chief What Is Group B Strep? Group B [...] with a group B strep infection ?? 2902-5857 [facility], [address] [place] [address], [place] [address]. All rights reserved. This information is not intended as a substitute for professional medical care. Always follow your healthcare professional's instructions. This document has images extracted. Please consider using [employer] for all your patient education needs. Source: [facility] POWERCHART Document Id: [id number] documented in this encounter Miscellaneous Notes Miscellaneous - Leonora Villaseñor R.N., WHNP-BC - 06/08/2017 9:39 AM CDT Ambulatory Discharge Medication List [address] [facility] [address] [place], [place] [phone] Visit Information Name: PUNEET COOLEY [facility] Number: [id number] Current Date: 06/08/2017 09:39:23 Attending Provider: LEONORA VILLASEÑOR R.N., [facility] Primary Care Provider: CATRACHO NAZARIO PA-C [...] WHNP-BC Signed On:08-JUN-2017 09:39:20 Additional Information: Source: [facility] POWERCHART Document Id: [id number] Miscellaneous - Leonora Villaseñor R.N., WHNP-BC - 06/08/2017 9:39 AM CDT Ambulatory Patient Summary [facility] [address], [address] [place], [place] [phone] Visit Information Name: PUNEET COOLEY [facility] Number: [id number] Current Date: 06/08/2017 09:39:23 [...] with a group B strep infection ?? [phone] [place] [address]. All rights reserved. This information is not [...] if you dont have one. Go to [email or web address] and click on Create Your Account. Then, follow the directions to complete the online form. Youll be asked for your [facility] number which you can find at the top of this document. Your Goals/Additional instructions: This document has images extracted. Please consider using [employer] for all your patient education needs. Source: [facility] POWERCHART Document Id: [id number] Miscellaneous - Cleopatra Laguerre L.P.N. - 06/08/2017 9:05 AM CDT Adult Grade Teacher Intake/History Adult Grade Teacher Intake/History Entered On: 06/08/2017 9:10 CDT [...] Information Given By : Patient Languages : Hebrew Is Patient Female and [...] LAGUERRE LPN - 06/08/2017 9:05 CDT [facility] POWERCHART Document Id: [id number] CDT!50 documented in this encounter Plan of Treatment Not on filedocumented as of this encounter Visit Diagnoses Not on filedocumented in this encounter Additional Health Concerns Assessment Noted Time PHQ-9 Depression Total Score: 7 04/07/2017 9:39 AM CDT documented as of this encounter Care Teams Laboratory Chief Relationship Specialty Start Date End Date Catracho Bundy P.A.-C. PCP - General 02/04/17 04/26/19 documented as of this encounter
--- OUTSIDE RECORDS SUMMARY | 2022-07-29 08:30 | XMS_ITS | Encounter Summary ---
:1985 Author Organization [facility] Address [address] [place] [address] Care Team Providers Name Role Phone Unavailable Primary Care Provider Unavailable Encounter Details Date Type Department Care Team Description 01/08/2017 Hospital Encounter [facility]X [facility] [address] [place] [phone] (Wo rk) Social History Tobacco Use [...] How often do you attend scientologist or advent More than 4 time s [...] 13:39:18 CDT From: LEONORA HOLMAN MD To: ME Family Medicine Nurse Amarilys; Sent: 01/08/2017 13:39:18 CDT Subject: RE: *General Message Looks okay. Just needs to follow up with OB next week. ThanksLeonora From: CRAIG TOLENTINO LPN (ME Family Medicine Nurse Panda) To: LEONORA HOLMAN MD; Sent: 01/08/2017 08:58:35 CDT Subject: *General Message Patient came in for BP check and was seen by you yesterday in the clinic. Today's BP 139/78 Pulse-100 137/75 Pulse-91 Please advise. Thank you. Source: [facility] POWERCHART Document Id: [id number] Electronically signed by Conversion, [facility] Brake Repairer [id number] at 02/01/2017 11:08 PM CDT Miscellaneous - [...] TOLENTINO LPN - 01/08/2017 8:53 CDT Source: [employer] Document Id: [id number] CDT!11 Miscellaneous - Craig Tolentino, L.P.N. - [...] TOLENTINO LPN - 01/08/2017 8:50 CDT Source: [employer] Document Id: [id number] CDT!9 documented in this encounter Plan of Treatment Not on filedocumented as of this encounter Visit Diagnoses Not on filedocumented in this encounter Additional Health Concerns Assessment Noted Time PHQ-9 Depression Total Score: 11 12/13/2014 9:50 AM CD T documented as of this encounter
--- OUTSIDE RECORDS SUMMARY | 2022-07-29 08:30 | XMS_ITS | Encounter Summary ---
:1985 Author Organization [facility] Address [address] [place] [address] Care Team Providers Name Role Phone Catracho Bundy P.A.-C. Primary Care Provider Encounter Details Date Type Department Care Team Description 02/22/2017 Hospital Encounter HX [facility] ME Ashwin Bundy PBrittaneyABrittaney-CBrittaney [address] [place] [address] (Wo rk) Social History Tobacco Use Types [...] How often do you attend buddhism or yarsani More than 4 time s [...] NAZARIO PA-C On: 02/24/2017 07:37 AM Source: [facility] POWERCHART Document Id: [id number] Leonora Barrios C.M.A. - 02/22/2017 10:36 AM CDT [facility] Services [facility] Exam Eye Services Clinic Exam Entered On: 02/22/2017 10:37 CDT Performed On: 02/22/2017 10:36 CDT by LEONORA BARRIOS [facility] Chief Complaint and History Chief Complaint : Eye pain Pain Symptoms : Yes Smoking Status : Light tobacco smoker LEONORA BARRIOS [facility] - 02/22/2017 10:36 CDT Vision Testing Right Eye Vision Testing : With glasses - primary, 20/25 Left Eye Vision Testing : With glasses - primary, 20/30 Both Eyes Vision Testing : With glasses - primary, 20/25 LEONORA BARRIOS ORTHOPHOTOGRAPHY TECHNICIAN - 02/22/2017 10:36 CDT Pain Scale Pain Scale Verbal 0-10 : Open LEONORA BARRIOS CMA - 02/22/2017 10:36 CDT Pain Pain Assessment Grid Pain 1 Location : Eye Laterality : Left Intensity : 6 LEONORA BARRIOS CMA - 02/22/2017 10:36 CDT Source: [facility] [employer] Document Id: [id number] CDT!17 documented in this encounter Miscellaneous Notes Miscellaneous - Catracho Nazario - 02/22/2017 10:44 AM CDT Work Excuse February 22, 2017 PUNEET FORREST [address] [facility] [id number] Dear PUNEET CLAYTON, You were examined in my office on: 02/22/17 Reason for work excuse: Medical Illness ( X ) Yes ( _ ) No Injury ( _ ) Yes ( _ ) No Is excused from all work: ( X ) Yes ( _ ) No Please excuse Puneet from work today. Sincerely, CATRACHO NAZARIO [id number] [address] Electronic Signature Electronically Signed By: CATRACHO NAZARIO PA-C On: February 22, 2017 This document has images extracted. Source: [facility] [employer] Document Id: [id number] Miscellaneous - Leonora Barrios C.M.ABrittaney - 02/22/2017 10:19 AM CDT Adult Ski Lift Operator Intake/History Adult Ski Lift Operator Intake/History Entered On: 02/22/2017 10:23 CDT Performed On: 02/22/2017 10:19 CDT by LEONORA BARRIOS [facility] Intake Chief Complaint : LEFT Eye, [...] Preferred Communication Mode : Verbal Languages : Montenegrin Is Patient Female and 13-50 no hysterectomy [...] Use/Advised to Quit : Yes LEONORA BARRIOS [facility] - 02/22/2017 10:19 CDT Caffeine Use Grid Caffeine Use : Current Type : Coffee, Soft drinks Frequency : Occasionally LEONORA BARRIOS [facility] - 02/22/2017 10:19 CDT Recreational Drug Use Grid Drug Use : None LEONORA BARRIOS [facility] - 02/22/2017 10:19 CDT Source: [facility] [employer] Document Id: [id number] CDT!58 documented in this encounter Plan of Treatment Not on filedocumented as of this encounter Visit Diagnoses Not on filedocumented in this encounter Additional Health Concerns Assessment Noted Time PHQ-9 Depression Total Score: 11 12/13/2014 9:50 AM CD T documented as of this encounter Care Teams Mechanical Assembly Technician Relationship Specialty Start Date End Date Catracho Bundy P.A.-C. PCP - General 02/04/17 04/26/19 documented as of this encounter
--- OUTSIDE RECORDS SUMMARY | 2022-07-29 08:30 | XMS_ITS | Encounter Summary ---
:1985 Author Organization [facility] Address [address] [place] [address] Care Team Providers Name Role Phone Unavailable Primary Care Provider Unavailable Encounter Details Date Type Department Care Team Description 11/24/2016 Hospital Encounter [facility] Marisol Lopez APRN, C.N.P. [address] [place] [address] (Wo rk) Social History Tobacco [...] How often do you attend gnosticist or mandaen More than 4 time s [...] Coding Summary-Paper Based CODING DATE: 11/27/2016 FINAL [facility] STATUS: * Discharged to Home or Self Care [facility]: REASON FOR VISIT [...] ROLDAN Date Saved: 11/27/2016 10:20 am Source: AppEnsure Document Id: [id number] Miscellaneous - Leonora Villaseñor RBrittaneyN. - 11/24/2016 12:58 PM CDT From: LEONORA VILLASEÑOR CNP, RN Sent: 11/24/2016 12:58:55 CDT patient notified of ultrasound results. she will schedule new ob visit as soon as she is able. Source: [employer] Document Id: [id number] Electronically signed by [facility], [facility] Nursing Consultant [id number] at 02/02/2017 6:27 AM CDT documented in this encounter Plan of Treatment Not on filedocumented as of this encounter Visit Diagnoses Not on filedocumented in this encounter Additional Health Concerns Assessment Noted Time PHQ-9 Depression Total Score: 11 12/13/2014 9:50 AM CD T documented as of this encounter
--- OUTSIDE RECORDS SUMMARY | 2022-07-29 08:30 | XMS_ITS | Encounter Summary ---
:1985 Author Organization [facility] Address [address] [place] [address] Care Team Providers Name Role Phone Catracho Bundy P.A.-C. Primary Care Provider Encounter Details Date Type Department Care Team Description 06/15/2017 Hospital Encounter [facility] Leonora Melchor, Maureen TARIQ, C.N.P. [address] [place], [place] [address] (Wo rk) Social History [...] How often do you attend episcopalian or taoist More than 4 time s [...] 06/15/2017 10:26 AM CDT Ambulatory Patient Summary [address] [id number] Visit Information Name: COOLEY PUNEET ALVARADO [facility] Number: [id number] Current Date: 06/15/2017 10:26:41 Physicians Attending Provider: LEONORA VILLASEÑOR R.N. [facility] Primary Care Provider: CATRACHO NAZARIO PA-C [...] dont have one. Go to [email or web address] and click on Create Your Account. Then, follow the directions to complete the online form. Youll be asked for your [facility] number which you can find at the top of this document. Your Goals/Additional instructions: Source: [facility] POWERCHART Document Id: [id number] Miscellaneous - Leonora Villaseñor R.N., WHNP-BC - 06/15/2017 10:26 AM CDT Ambulatory Discharge Medication List [address] [id number] Visit Information Name: PUNEET COOLEY [facility] Number: [id number] Current Date: 06/15/2017 10:26:41 Attending [...] emergency. Electronically Signed By: LEONORA VILLASEÑOR R.N. [facility] Signed On:15-JUN-2017 10:26:39 Additional Information: Source: [facility] POWERCHART Document Id: [id number] Miscellaneous - Roosevelt Rodriges, L.P.N. - 06/15/2017 10:24 AM CDT Adult Sanforizing Machine Operator Intake/History Adult Sanforizing Machine Operator Intake/History Entered On: 06/15/2017 10:27 CDT Performed On: 06/15/2017 10:24 CDT by ROOSEVELT RODRIGES LIVESTOCK FARMER Intake Chief Complaint : OB check Temperature [...] ROOSEVELT RODRIGES LPN 06/15/2017 10:24 CDT Source: Solio Document Id: [id number] CDT!40 documented in this encounter Plan of Treatment Not on filedocumented as of this encounter Visit Diagnoses Not on filedocumented in this encounter Additional Health Concerns Assessment Noted Time PHQ-9 Depression Total Score: 7 04/07/2017 9:39 AM CDT documented as of this encounter Care Teams Instructor Trainer Canine Service Relationship Specialty Start Date End Date Catracho Bundy P.A.-C. PCP - General 02/04/17 04/26/19 documented as of this encounter
--- OUTSIDE RECORDS SUMMARY | 2022-07-29 08:30 | XMS_ITS | Encounter Summary ---
:1985 Author Organization [facility] Address [address] [place] [address] Care Team Providers Name Role Phone Blaire Bundy P.A.-C. Primary Care Provider Encounter Details Date Type Department Care Team Description 04/07/2017 Hospital Encounter HX [facility] Leonora Melchor, Maureen TARIQ, C.N.P. [address] [place], [place] [phone] (Wo rk) Social History [...] as of this encounter Care Teams Security Controls Assessor Relationship Specialty Start Date End Date Blaire Bundy P.A.-C. PCP - General 02/04/17 04/26/19 documented as of this encounter
--- OUTSIDE RECORDS SUMMARY | 2022-07-29 08:30 | XMS_ITS | Encounter Summary ---
:1985 Author Organization [facility] Address [address] [place] [address] Care Team Providers Name Role Phone Blaire [...] How often do you attend christianity or mosque More than 4 time s [...]
--- OUTSIDE RECORDS SUMMARY | 2022-07-29 08:30 | XMS_ITS | Encounter Summary ---
:1985 Author Organization [facility] Address [address] [place] [address] Care Team Providers Name Role Phone Blaire Bundy P.A.-C. Primary Care Provider Encounter Details Date Type Department Care Team Description 08/02/2017 Nurse Triage Department of [facility] Anastasia Sands, Medicine, [facility], R.N. in [address] [place] [address] [place] [address] [phone] Social History Tobacco Use Types Packs/Day Years [...] How often do you attend sikhism or amish More than 4 time s [...] documented as of this encounter Care Teams City Administrator Relationship Specialty Start Date End Date Blaire Bundy P.A.-C. PCP - General 02/04/17 04/26/19 documented as of this encounter
--- OUTSIDE RECORDS SUMMARY | 2022-07-29 08:30 | XMS_ITS | Encounter Summary ---
:1985 Author Organization [facility] Address [address] [place] [address] Care Team Providers Name Role Phone Blaire Bundy P.A.-C. Primary Care Provider Encounter Details Date Type Department Care Team Description 06/18/2017 Abstract Department of Family Medicine, Provider, Historical [facility], in [place], [place] [address] [place] [address] [facility] [phone] Social History Tobacco Use Types Packs/Day Years [...] How often do you attend bahai or anglican More than 4 time s [...] documented as of this encounter Care Teams Cargo Station Worker Relationship Specialty Start Date End Date Blaire Bundy P.A.-C. PCP - General 02/04/17 04/26/19 documented as of this encounter
--- OUTSIDE RECORDS SUMMARY | 2022-07-29 08:30 | XMS_ITS | Encounter Summary ---
:1985 Author Organization [facility] Address [address] [place] [address] Care Team Providers Name Role Phone Blaire Bundy P.A.-C. Primary Care Provider Encounter Details Date Type Department Care Team Description 02/11/[address] [facility] Marisol Irving APRN, C.N.P. [address] [place] [address] (Wo rk) Social History Tobacco [...] How often do you attend baptist or congregational More than 4 time s [...] Coding Summary-Paper Based CODING DATE: 02/16/2017 FINAL [facility] STATUS: * Discharged to Home or Self [...] ROLDAN Date Saved: 02/16/2017 11:30 am Source: [facility] POWERCHART Document Id: [id number] Miscellaneous - Marisol Irving CBrittaneyN.P., R.N. - 02/11/2017 4:33 PM CDT Addendum by SOCORRO MARK on February 12, 2017 11:37:11 CDT From: SOCORRO MARK ( Obstetrics/Gynecology Vessel Scrapper) To: PUNEET CLAYTON Sent: 02/12/2017 11:37:11 CDT [...] From: MARISOL IRVING CNP, RN To: Obstetrics/Gynecology Vessel Scrapper; PUNEET CLAYTON Sent: 02/11/2017 16:33:06 CDT Puneet, [...] scheduled with your next appointment. Marisol Source: [facility] POWERCHART Document Id: [id number] Electronically signed by Roland, [facility] Postal Superintendent [id number] at 02/24/2017 11:29 AM CDT documented in this encounter Plan of Treatment Not on filedocumented as of this encounter Visit Diagnoses Not on filedocumented in this encounter Additional Health Concerns Assessment Noted Time PHQ-9 Depression Total Score: 11 12/13/2014 9:50 AM CD T documented as of this encounter Care Teams Garage Attendant Relationship Specialty Start Date End Date Blaire Bundy P.A.-C. PCP - General 02/04/17 04/26/19 documented as of this encounter
--- OUTSIDE RECORDS SUMMARY | 2022-07-29 08:30 | XMS_ITS | Encounter Summary ---
:1985 Author Organization [facility] Address [address] [place] [address] Care Team Providers Name Role Phone Unavailable Primary Care Provider Unavailable Encounter Details Date Type Department Care Team Description 01/13/2017 Hospital Encounter HX [facility] Leonora Melchor A PRN, C.N.P. [address] [place], [place] [address] (Wo rk) Social History [...] How often do you attend holiness or buddhism More than 4 time s [...] given to the patient: Patient Education Materials: Tow Truck Dispatcher Adapting to : Second Trimester Tow Truck Dispatcher Adapting to : Second Trimester Keep up [...] schedule. Try taking shorter breaks more often. [id number] You Travel The second trimester may be [...] smoke. ?? Dont breathe fumes from nail tunisian, hair spray, cleansers, or other chemicals. ?? [id number] [place] [address]. All rights reserved. This information is not intended as a substitute for professional medical care. Always follow your healthcare professional's instructions. This document has images extracted. Please consider using [employer] for all your patient education needs. Source: [facility] POWERCHART Document Id: [id number] documented in this encounter Miscellaneous Notes Miscellaneous - Leonora Villaseñor R.N. - 01/13/2017 11:31 AM CDT Ambulatory Patient Summary [facility] [address] [place], [place] [phone] Visit Information Name: PUNEET COOLEY [facility] Number: [id number] Current Date: 01/13/2017 11:31:39 Physicians Attending Provider: LEONORA VILLASEÑOR R.N., [facility] [...] emergency. Electronically Signed By: LEONORA VILLASEÑOR R.N., [facility] Signed On:13-JAN-2017 11:31:37 Your Allergies & [...] Location Provider 02/11/2017 09:30 [facility] Ultrasound [facility] 1 02/11/2017 10:15 [facility] [employer] EXECUTIVE [employer]OUD SALES Marisol Irving CNP Attention: Contact your local [...] smoke. ?? Dont breathe fumes from nail tunisian, hair spray, cleansers, or other chemicals. ?? [phone] Cecil Paez, [address] [place] [address], [place] [address]. All rights reserved. This information is not [...] if you dont have one. Go to [email or web address] and click on Create Your Account. Then, follow the directions to complete the online form. Youll be asked for your [facility] number which you can find at the top of this document. Your Goals/Additional instructions: This document has images extracted. Please consider using [employer] for all your patient education needs. Source: [facility] POWERCHART Document Id: [id number] Miscellaneous - Leonora Villaseñor R.N. - 01/13/2017 11:31 AM CDT Ambulatory Discharge Medication List [facility] [address], [address] [place], [place] [phone] Visit Information Name: COOLEYDORITAPUNEETCARRIE ALVARADO [facility] Number: [id number] Current Date: 01/13/2017 11:31:38 Attending Provider: LEONORA VILLASEÑOR R.N., [facility] [...] emergency. Electronically Signed By: LEONORA VILLASEÑOR R.N., [facility] Signed On:13-JAN-2017 11:31:37 Additional Information: Source: [facility] POWERCHART Document Id: [id number] Miscellaneous - Cleopatra Laguerre LBrittaneyP.N. - 01/13/2017 10:18 AM CDT Adult Life Underwriter Intake/History Adult Life Underwriter Intake/History Entered On: 01/13/2017 10:22 CDT Performed [...] Information Given By : Patient Languages : Russian Is Patient Female and 13-50 no hysterectomy : Yes Status : Confirmed positive Are you ? : No CLEOPATRA LAGUERRE LPN - 01/13/2017 10:18 CDT Subjective Pain Symptoms : No CLEOPATRA LAGUERRE [facility] - 01/13/2017 10:18 CDT Dependent Habits Exposure to Tobacco Smoke : Patient smokes Smoking Status : Former smoker Tobacco 2A : Yes Tobacco Use/Currently Using : No Tobacco Use/Last 30 Days : No Tobacco Use/Last 12 months : Yes Tobacco Last Use/Month : November Tobacco Last Use/Year : 2016 Type : Other: quit 11/2016 CLEOPATRA LAGUERRE [facility] - 01/13/2017 10:18 CDT Caffeine Use Grid Caffeine Use : Current Type : Coffee, Soft drinks Frequency : Occasionally CLEOPATRA LAGUERRE [facility] 01/13/2017 10:18 CDT Recreational Drug Use Grid Drug Use : None CLEOPATRA LAGUERRE [facility] 01/13/2017 10:18 CDT Source: [employer] Document Id: [id number] CDT!42 documented in this encounter Plan of Treatment Not on filedocumented as of this encounter Visit Diagnoses Not on filedocumented in this encounter Additional Health Concerns Assessment Noted Time PHQ-9 Depression Total Score: 11 12/13/2014 9:50 AM CD T documented as of this encounter
--- OUTSIDE RECORDS SUMMARY | 2022-07-29 08:30 | XMS_ITS | Encounter Summary ---
:[address] [facility] Address [address] [place] [address] Care Team Providers Name Role Phone Blaire Bundy P.A.-C. Primary Care Provider [phone] Encounter Details Date Type Department Care Team Description 03/11/2017 Hospital Encounter HX [facility] Leonora Reaves, COMMUNITY ASSOCIATION MANAGER, C.N.P. [address] [place] [address] (Wo rk) Social [...] How often do you attend worship or baptist More than 4 time s [...] Coding Summary-Paper Based CODING DATE: 03/16/2017 FINAL [facility] STATUS: * Discharged to [...] ROLDAN Date Saved: 03/16/2017 02:50 pm Source: [facility] POWERCHART Document Id: [id number] documented in this encounter Plan of Treatment Not on filedocumented as of this encounter Visit Diagnoses Not on filedocumented in this encounter Additional Health Concerns Assessment Noted Time PHQ-9 Depression Total Score: 11 12/13/2014 9:50 AM CD T documented as of this encounter Care Teams Field Checker Relationship Specialty Start Date End Date Blaire Bundy P.A.-C. PCP - General 02/04/17 04/26/19 documented as of this encounter
--- OUTSIDE RECORDS SUMMARY | 2022-07-29 08:30 | XMS_ITS | Encounter Summary ---
:1985 Author Organization [facility] Address [address] [place] [address] Care Team Providers Name Role Phone Catracho Bundy P.A.-C. Primary Care Provider Encounter Details Date Type Department Care Team Description 05/30/2017 Hospital Encounter HX [facility] Rai Landaverde M.D. [address] [place] [address] (Wo rk) Social History Tobacco [...] How often do you attend yarsanism or restorationist More than 4 time s [...] BERNAL RN - 05/30/2017 16:34 CDT Source: [facility] POWERCHART Document Id: [id number] CDT!19 Shiela Bernal R.N. - 05/30/2017 4:07 PM CDT Hospital Discharge Instructions [address] [id number] Patient Discharge Instructions Name: FORREST PUNEET CHRISTIANO Current Date: 05/30/2017 16:07:19 : 1985 12:00 AM [facility] Number: [id number] Patient Address: [address] [place] [id number] Patient Primary Care Provider: Name: CATRACHO NAZARIO Briana WHITING Discharge Diagnosis: [facility] would like to thank you for allowing [...] Appointments Date Time Location Provider 06/08/2017 09:00 [facility] TEAROOM HOST Jean Paul MONTEMAYOR, Leonora Bustillos Consider Using [...] one. Go to [email or web address] and click on Create Your Account. Then, [...] will start right away. You may feel [place] contractions (false labor). These irregular contractions start to soften and thin the cervix. Many women mistake these contractions for true labor. They may be more noticable towards the end of the day. Feeling like the baby has dropped lower. In preparation for , the baby's head has settled deep into your pelvis. ?? [id number] [facility], [address] [place] [address], [place] [address]. All rights reserved. This information is not [...] felt your baby move all day. ?? [id number] Cecil [facility], [address] [place] [address], [place] [address]. All rights reserved. This information is not intended as a substitute for professional medical care. Always follow your healthcare professional's instructions. This document has images extracted. Please consider using [employer] for all your patient education needs. Source: [facility] POWERCHART Document Id: [id number] Shiela Bernal R.N. - 05/30/2017 4:07 PM CDT Hospital Discharge Medication List [address] [id number] Discharge Medication List Name: PUNEET CLAYTON Current Date: 05/30/2017 16:07:18 : 1985 12:00 AM [facility] Number: [id number] Patient Address: [address] [place] [id number] Patient Primary Care Provider: Name: CATRACHO NAZARIO PA-C Discharge Diagnosis: [facility] [place] would like to thank you for allowing [...] Comment: Electronically Signed By: Signed On: Source: [employer] Maraquia Document Id: [id number] documented in this encounter Medications at Time [...] ASHLEY RN - 05/30/2017 16:28 CDT Source: [facility] Maraquia Document Id: [id number] CDT!3 Shiela Bernal R.N. - 05/30/2017 3:45 PM CDT Ongoing Assessment Antepartum Ongoing Assessment Antepartum Entered On: 05/30/2017 16:31 CDT Performed On: 05/30/2017 15:45 CDT by SHIELA BERNAL detective investigator Chief Complaint : decreased movement last few [...] Yes/No : No Nail Bed Color : [place] Capillary Refill : Less than 2 seconds [...] None SHIELA BERNAL RN 05/30/2017 16:29 CDT [place] Coma Eye Opening Response Jenise : Spontaneously Best Verbal Response [place] : Oriented Best Motor Response [place] : Obeys simple commands [place] Coma Score : 15 SHIELA BERNAL RN [...] Integrity : Intact Mucous Membrane Color : [place] Mucous Membrane Description : Moist Skin Color [...] BERNAL RN - 05/30/2017 16:29 CDT Source: [employer] Document Id: [id number] CDT!107 documented in this encounter Miscellaneous Notes Miscellaneous - Conversion, Historical Provider Ser - 05/30/2017 4:15 PM CDT Coding Summary-Paper Based CODING DATE: 05/31/2017 FINAL [facility] [employer] STATUS: * Discharged to Home or Self [...] ROLDAN Date Saved: 05/31/2017 10:39 am Source: [facility] Document Id: [id number] documented in this encounter Plan of Treatment Not on filedocumented as of this encounter Visit Diagnoses Not on filedocumented in this encounter Additional Health Concerns Assessment Noted Time PHQ-9 Depression Total Score: 7 04/07/2017 9:39 AM CDT documented as of this encounter Care Teams Social Staff Worker Relationship Specialty Start Date End Date Catracho Bundy P.A.-C. PCP - General 02/04/17 04/26/19 documented as of this encounter
--- OUTSIDE RECORDS SUMMARY | 2022-07-29 08:30 | XMS_ITS | Encounter Summary ---
:1985 Author Organization [facility] Address [address] [place] [address] Care Team Providers Name Role Phone Blaire Bundy P.A.-C. Primary Care Provider [phone] Reason for Visit Reason Comments Care Encounter Details Date Type Department Care Team Description 07/29/2017 Office Visit Department of Leonora Reaves, Management C ontraception By Injection (Primary Dx); Obstetrics and SECTION LEADER SCREEN PRINTING, C.N.P. Exam (HCC) Gynecology in [address] [address] [place], [place] [phone] [address] (Work) [phone] Social History Tobacco Use Types Packs/Day Years [...] How often do you attend christianity or evangelical More than 4 time s [...] Comments Blood Pressure 132/82 07/29/2017 10:53 AM TOOL CHASER Pulse - - Temperature - - Respiratory Rate - - Oxygen Saturation - - Inhaled Oxygen Concentration - - Weight 145 kg (319 lb 10.7 oz) 07/29/2017 10:53 AM TOOL CHASER Height - - Body Mass Index 58.3 06/23/2017 4:33 PM CDT documented in this encounter Progress Notes Leonora Reaves R.N., WHNP-BC - 07/29/2017 11:00 AM CST SUBJECTIVE CHIEF COMPLAINT / REASON FOR VISIT Carol Cooley, , is status post vaginal at [facility] in [place]. Antepartum course was complicated by: Obesity. course [...] or hernia Genitalia: external vulva, Bartholin's, urethra, [place]'s glands and fourchette negative Perineum: intact; well healed Vagina: normal Cervix: normal Bimanual: exam revealed normal mobile uterus, negative adnexa Rectovaginal exam: confirms good sphincter tone [employer] for pelvic exam or qualifying procedure: Lory [...] of the content. Leonora Reaves R.N., SIM- CHASER documented in this encounter Plan of Treatment Not on filedocumented as of this encounter Visit Diagnoses Diagnosis Management Contraception By Injection - Primary Exam (HCC) documented in this encounter Administered Medications Inactive Administered Medications - up to 3 most recent administrations Medication Order MAR Action Action Date Dose Rate Site medroxyPROGESTERone injection Given 07/29/2017 150 mg Right Vastus 150 mg 11:37 AM TOOL CHASER Lateralis 150 mg, intramuscular, Every 12 weeks, First dose on Bryanna 07/29/17 at 1145, For 4 doses documented in this encounter Additional Health Concerns Assessment Noted Time PHQ-9 Depression Total Score: 7 04/07/2017 9:39 AM CDT documented as of this encounter Care Teams Stucco Laborer Relationship Specialty Start Date End Date Blaire Bundy P.A.-C. PCP - General 02/04/17 04/26/19 documented as of this encounter
--- OUTSIDE RECORDS SUMMARY | 2022-07-29 08:31 | XMS_ITS | Encounter Summary ---
:1985 Author Organization [facility] Address [address] [place] [address] Care Team Providers Name Role Phone Unavailable Primary Care Provider Unavailable Encounter Details Date Type Department Care Team Description 03/02/2015 Hospital Encounter HX [facility] Berny Llamas M.D. [address] [place], [place] [phone] (Wo rk) Social History [...] 03/02/2015 10:41 PM CDT ED Discharge Instructions [address] [place] [address] Name: PUNEET FRIED Date of : 1985 12:00 AM Visit Date: 03/02/2015 10:12 PM [facility] Number: [id number] Address: [address] [place] [phone] Primary Care Provider: ALISON MONACO PA-C IMPORTANT: [facility] in [place] would like to thank you for allowing us to assist you with your healthcare needs. The following includes patient education materials and information regarding your injury/illness. Diagnosis: Strep Throat Pharyngitis Follow-Up Instructions: With: Address: When: ALISON MONACO [address] [place] [address] Business (1) In 2 days 03/04/2015 Comments: [...] with strep throat more comfortable: Try soft, xnbe-rh-zmlrvct foods, such as soup, applesauce, and yogurt. [...] ?? Shortness of breath ?? Rash ?? [id number] Cecil Paez, [address] [place] [address], [place] [address]. All rights reserved. This information is not [...] if you dont have one. Go to [email or web address] and click on Create Your Account. Then, follow the directions to complete the online form. Youll be asked for your [facility] number which you can find at the [...] document has images extracted. Please consider using [employer] for all your patient education needs. Source: [facility] POWERCHART Document Id: [id number] Kavitha Saha R.N. - 03/02/2015 10:41 PM CDT ED Depart Summary [facility] Emergency Department Clinical Discharge Summary PERSON INFORMATION Name PUNEET FRIED Age 29 Years 1985 12:00 AM Sex Female Language Liberian PCP ALISON MONACO PA-C Marital Status Single Visit Id Visit Reason Facial swelling; UC - Sore Throat; sore throat, facial swelling Specialty Enc Type Emergency Med Service Emergency Medicine Referred by Track Group [facility] ED Discharge 03/02/2015 10:35 PM Tracking Id [id number] Checkout 03/02/2015 10:35 PM Checkin 03/02/2015 10:12 PM Acuity 3 -Urgent Dispo Type * Discharged to Home or Self Care Arrival 03/02/2015 10:12 PM Reg Status Complete LOS 000 00:23 Address: [address] [place] [phone] Comment: PROVIDER INFORMATION Provider Role Provider Contact Time KAVITHA SAHA GROUNDSKEEPER Nurse 03/02/15 22:16 BERNY GARCIA MD ED Provider 03/02/15 22:17 DIAGNOSIS Strep Throat Pharyngitis Comment: PATIENT EDUCATION INFORMATION Instructions: Strep Throat Follow up: With: Address: When: ALISON MONACO [address] [place] [address] [phone] Business (0) In 2 days 03/04/2015 Comments: For recheck if not resolving Source: [facility] Document Id: [id number] documented in this encounter ED Notes Kavitha [...] SAHA RN - 03/02/2015 22:40 CDT Source: [facility] Document Id: [id number] CDT!9 Berny Garcia M.D. - 03/02/2015 10:18 [...] and with a positive rapid strep in [place] 2 days ago. She is on Keflex [...] Headache Abuse Tobacco Smoking NOS (305.1) Resolved ([id number]): Resolved on 01/03/2008 at 22 years.. Surgical history: Pap smear ([id number]) on 01/25/2013 at 27 Years. Pap smear ([id number]) on 01/25/2013 at 27 Years.. Family history: [...] Headache / V22.2 / Confirmed Resolved: / [id number]. Physical Examination Vital Signs: Vital Signs 03/02/2015 [...] Stable. Disposition: Discharged: to home. 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 - 03/02/2015 10:17 PM [...] Medical ; Code: 305.1 ; Contributor System: Pouring PoundsChart ; Last Updated: 12/12/2014 9:21 CDT ; [...] Medical ; Code: 784.0 ; Contributor System: Pour[employer] PoundsChart ; Last Updated: 12/12/2014 9:11 CDT ; Life Cycle Status: Active ; Vocabulary: ICD-9-CM ; Comments: - Headache Headache Migraine (ICD-9-CM :346.90 ) Name of Problem: Headache Migraine ; Onset Date: 01/21/2012 ; Recorder: RABIA NATHAN MD; Confirmation: Confirmed ; Classification: Medical ; Code: 346.90 ; Contributor System: Pouring PoundsChart ; Last Updated: 12/12/2014 9:11 CDT ; [...] PNED ; Probability: 0 ; Diagnosis Code: [id number] UC - Sore Throat Date: 03/02/2015 ; Diagnosis Type: Reason For Visit ; Confirmation: Complaint of ; Clinical Dx: UC - Sore Throat ; Classification: Medical ; Clinical Service: Emergency medicine ; Code: PNED ; Probability: 0 ; Diagnosis Code: [id number] Triage Chief Complaint Description : diagnosed with strep on Tues, on Keflex and Prednisone. today left side of face swollen in am, feels like something lodged in throat, hurts to turn head to left Information Given By : Patient Accompanied By : Alone Mode of Arrival ED : Private vehicle, Ambulatory Track : Medical Languages : Liberian Patient Informed of Triage Location : Emergency [...] Acuity : 3 -Urgent Tracking Group : [facility] ED KAVITHA SAHA SHRUTHI 03/02/2015 22:17 CDT [...] SAHA RN - 03/02/2015 22:17 CDT Source: [facility] Document Id: [id number] CDT!84 documented in this encounter Miscellaneous Notes Miscellaneous - Conversion, Historical Provider Ser - 03/02/2015 10:35 PM CDT Coding Summary-Paper Based CODING DATE: 03/14/2015 FINAL [facility] STATUS: * Discharged to Home or Self Care PAYOR: [facility] ADMIT DX: [id number] Acute Pharyngitis [...] SORTO Date Saved: 03/14/2015 02:40 pm Source: [facility] Document Id: [id number] Miscellaneous - Kavitha Saha R.N. - 03/02/2015 [...] SAHA RN - 03/02/2015 22:40 CDT Source: [facility] Document Id: [id number] CDT!8 Miscellaneous - Kavitha Saha R.N. - [...] Control : 5 Lynx Visit Level : 18539 Level 2 Treatments Prior to Arrival : Home treatments KAVITHA SAHA RN - 03/02/2015 22:40 CDT Source: [facility] Document Id: [id number] CDT!18 documented in this encounter Plan of Treatment Not on filedocumented as of this encounter Visit Diagnoses Not on filedocumented in this encounter Additional Health Concerns Assessment Noted Time PHQ-9 Depression Total Score: 11 12/13/2014 9:50 AM CD T documented as of this encounter
--- OUTSIDE RECORDS SUMMARY | 2022-07-29 08:31 | XMS_ITS | Encounter Summary ---
:1985 Author Organization [facility] Address [address] [place] [address] Care Team Providers Name Role Phone Unavailable Primary Care Provider Unavailable Encounter Details Date Type Department Care Team Description 01/06/2016 Hospital Encounter HX [facility] Ashwin Bundy, P.A.-C. [address] [place], [place] [phone] (Wo rk) Social History Tobacco Use Types [...] How often do you attend shinto or jew More than 4 time s [...] Ordered: OV Est Pt Level 4 - 46650 - 25 min Total time spent 25 minutes, 15 minutes counseling the patient regarding sun care for skin (no tanning beds, cover when in the sun and wear sun screen) and performing the above procedure. Electronically Signed By: CATRACHO NAZARIO P.A.-C. On: 01/08/2016 07:59 AM Source: [employer] POWERCHART Document Id: [id number] documented in this encounter Miscellaneous Notes Miscellaneous [...] Patient ( ) ( ) Call for Beef Splitter ( ) Follow up on Results ( ) Other: PROVIDER: ( ) Call Physician ( ) Call Pharmacist ( ) Call Lab ( ) Other: Special Instructions: Comments: Source: [facility] POWERCHART Document Id: [id number] Electronically signed by Roland, [facility] Portable Machine Cutter [id number] at 01/16/2017 3:01 PM CDT Miscellaneous - [...] Name Value 01/06/2016 09:25 Surg IV Accn-[place] [id number] 01/06/2016 09:25 Surg IV Addr-[place] See Comment 01/06/2016 09:25 Surg IV FnlDiag-[place] See Comment 01/06/2016 09:25 Surg IV Ref-[place] See Comment 01/06/2016 09:25 Surg IV SgnPath-[place] See Comment 01/06/2016 09:25 Surg IV Ts Desc-[place] See Comment [facility] Document Id: [id number] Electronically signed by Roland [facility] Workman [id number] at 01/16/2017 3:01 PM CDT Leilani - [...] CARDONA LPN - 01/06/2016 8:32 CDT [facility] Document Id: [id number] CDT!8 Leilani - Jude Cardona L.P.NBrittaney - 01/06/2016 8:25 AM CDT 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 : No JUDE CARDONA CURB SETTER HELPER - 01/06/2016 8:25 CDT Subjective Pain Symptoms : No JUDE CARDONA [facility] - 01/06/2016 8:25 CDT Dependent Habits [...] JUDE CARDONA LPN 01/06/2016 8:25 CDT Source: [facility] BityotaCHART Document Id: [id number] CDT!40 documented in this encounter Plan of Treatment Not on filedocumented as of this encounter Procedures Procedure Name Priority Date/Time Associated Diagnosis [facility] SURGICAL PATHOLOGY Routine 01/06/2016 9:25 AM Res ults for this CDT procedure are i n the results section. documented in this encounter Results Pathology Anatpath Wet Tissue (01/06/2016 9:25 AM CDT) [facility] Method Time Signature HXSurg IV [id number] POWERCHART [facility] HXSurg IV See Comment POWERCHART Ref-Clarence Comment: RESULT: Eusebio Nathan HXSurg IV [facility] See Comment POWERCHA RT Comment: [facility] [address] [place] [address] SLIDE DISPOSITION: HXSurg IV [facility] See Comment POWER CHART Comment: [id number] A1 A. Received in formalin labeled with [...] nape of neck [facility]RSR Path [facility] See Comment POWER CHART Comment: A. ??Skin, right neck, punch biopsy: ??L jacqueline irene. Participated in interpretation: Dr. Blane Shepherd. Pager: [phone]. As the signing pathologist, I verify fidelina t I have examined all relevant slides/materials for the specim en(s) and rendered or confirmed the diagnosis. HXSurg IV [facility] See Comment POWER CHART Comment: RESULT: 01/08/2016 15:55 Interpreted by: Lucas Lucia M.D. Report electronically signed by Lucas grey M.D. Transcribed by: amelia 01/08/2016 15:17:34 Test Performed by: [address] [address] Shipping And Receiving Associate: Rubio Marshall II, M.D., Ph.D. Specimen (Source) [...]
--- OUTSIDE RECORDS SUMMARY | 2022-07-29 08:31 | XMS_ITS | Encounter Summary ---
:1985 Author Organization [facility] Address [address] [place] [address] Care Team Providers Name Role Phone Unavailable Primary Care Provider Unavailable Encounter Details Date Type Department Care Team Description 11/05/2014 - Hospital Encounter [facility] John Berman 05/22/2015 Mago Purdy, M.S. [address] [place] [phone] Social History Tobacco Use Types Packs/Day Years [...] How often do you attend mu-ism or mandaeism More than 4 time s [...] WANG PT On: 12/31/2014 08:57 AM Source: [employer] POWERCHART Document Id: [id number] documented in this encounter Progress Notes Dev [...] as able. Total Visit Time: 25 minutes Drafter Cartographic Present NA Electronically Signed By: DEV WANG PT On: 11/28/2014 11:31 AM Source: [employer] Document Id: [id number] Dev Wang P.T. - 11/21/2014 12:33 PM [...] as able. Total Visit Time: 27 minutes Drafter Cartographic Present NA Electronically Signed By: DEV WANG PT On: 11/21/2014 12:41 PM Source: [employer] Document Id: [id number] Daniel Craft P.T. - 11/16/2014 11:17 AM [...] cervical stabilization. Total Visit Time: 22 minutes Drafter Cartographic Present NA Electronically Signed By: DANIEL CRAFT PT On: 11/16/2014 11:20 AM Source: [facility] POWERCHART Document Id: [id number] Dev Wang P.T. - 11/07/2014 10:56 AM [...] cervical stabilization. 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 This plan of care has been discussed with the patient/childcare teacher and the patient/childcare teacher is in agreement. Frequency / Duration: Patient will be seen 2 session(s) every week(s) for 8 weeks for a total of 16 visits. I certify that the above rehabilitation services are required and authorized by vt, and that the patient's plan will be [...] huma stabilization. TOTAL VISIT TIME: 45 minutes CONFIGURATION DEVELOPER PRESENT NA MULTIDISCIPLINARY PATIENT / FAMILY EDUCATION [...] MONACO PA-C On: 11/05/2014 12:11 PM Source: [employer] Document Id: [id number] documented in this encounter Miscellaneous Notes Miscellaneous - Conversion, Historical Provider Ser - 11/08/2014 8:03 AM CDT Coding Summary-Paper Based CODING DATE: 11/08/2014 FINAL [facility] STATUS: Still Patient/Expected to Rtn [facility] PAYOR: [employer] ADMIT DX: V57.1 Care [...] Revised Date Saved: 11/08/2014 08:03 am Source: [facility] POWERCHART Document Id: [id number] documented in this encounter Plan of Treatment Not on filedocumented as of this encounter Visit Diagnoses Not on filedocumented in this encounter Additional Health Concerns Assessment Noted Time PHQ-9 Depression Total Score: 18 05/02/2014 9:45 AM CD T documented as of this encounter
--- OUTSIDE RECORDS SUMMARY | 2022-07-29 08:31 | XMS_ITS | Encounter Summary ---
:1985 Author Organization [facility] Address [address] [place] [address] Care Team Providers Name Role Phone Unavailable Primary Care Provider Unavailable Encounter Details Date Type Department Care Team Description 11/06/2016 Hospital Encounter H[facility] Leonora Melchor A PRN, C.N.P. [address] [place], [place] [phone] (Wo rk) Social History [...] How often do you attend bahai or buddhist More than 4 time s [...] confirmation of due to + test at [facility]. She is , they have a [...] NIL G1: 1 FT Date: 01-03-2008. Location [place]. weight 7#13oz Complications high blood pressure Delivery [...] BMI 59. We discussed care here at [facility] or [place], [place] 3) smoker, quitting. Electronically Signed By: LEONORA VILLASEÑOR CNP, RN On: 11/06/2016 12:06 PM Modified by and Electronically Signed by: LEONORA VILLASEÑOR CNP, RN On: 11/06/2016 10:46 AM Source: [facility] POWERCHART Document Id: [id number] documented in this encounter Miscellaneous Notes Miscellaneous - Leonora Villaseñor R.N. - 11/06/2016 12:02 PM CDT Ambulatory Discharge Medication List [facility] [address] [place], [address] [place], [place] [phone] Visit Information Name: PUNEET COOLEY [facility] Number: [id number] Current Date: 11/06/2016 12:02:18 Attending Provider: LEONORA VILLASEÑOR CNP accessories repairer Provider: CATRACHO NAZARIO PA-C PUNEET COOLEY has [...] RN Signed On:06-NOV-2016 12:02:17 Additional Information: Source: [facility] POWERCHART Document Id: [id number] Miscellaneous - Leonora Villaseñor RMarcos. - 11/06/2016 12:02 PM CDT Ambulatory Patient Summary [facility] [address], [address] [place], [place] [phone] Visit Information Name: PUNEET COOLEY [facility] Number: [id number] Current Date: 11/06/2016 12:02:19 Physicians [...] if you dont have one. Go to [email or web address] and click on Create Your Account. Then, follow the directions to complete the online form. Youll be asked for your [facility] number which you can find at the top of this document. Your Goals/Additional instructions: Source: [facility] POWERCHART Document Id: [id number] Miscellaneous - Maurice Dozier L.PBrittaneyN. 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 Date : 10/03/2016 Systolic Blood Pressure [...] 11/06/2016 9:09 CDT General Info Languages : Sierra Leonean Is Patient Female and 13-50 no hysterectomy [...] - 11/06/2016 9:09 CDT [facility] Document Id: [id number] CDT!39 Miscellaneous - Maurice Dozier L.P.NBrittaney - [...] Alcohol Use : No DOZIER, MAURICE Maureen [facility] - 11/06/2016 9:08 CDT Caffeine Use Grid Caffeine Use : Current Type : Coffee, Soft drinks Frequency : Occasionally MAURICE DOZIER [facility] - 11/06/2016 9:08 CDT Recreational Drug Use Grid Drug Use : None SUKH DOIZERFER Maureen [facility] - 11/06/2016 9:08 CDT Psychosocial Domestic Abuse Concerns : None Behavioral Health Screen/Safety Assmt : Unable to obtain Voodoo Preference : No qualifying data available. MAURICE DOZIER [facility] 11/06/2016 9:08 CDT Advance Directive Advanced Directives : No Advance Directive Additional Information : No MAURICE DOZIER [facility] 11/06/2016 9:08 CDT Educ Needs Learning Style Preference Adult Grid Patient : None Family : None MAURICE DOZIER [facility] 11/06/2016 9:08 CDT Source: [facility] POWERCHART Document Id: [id number] CDT!37 documented in this encounter Plan of [...]
--- OUTSIDE RECORDS SUMMARY | 2022-07-29 08:31 | XMS_ITS | Encounter Summary ---
:1985 Author Organization [facility] Address [address] [place] [address] Care Team Providers Name Role Phone Unavailable Primary Care Provider Unavailable Encounter Details Date Type Department Care Team Description 07/19/2015 Hospital Encounter [facility] Luisa Stevens M .D. Social History Tobacco [...] How often do you attend mu-ism or cheondoism More than 4 time s [...] Comments Blood Pressure 149/69 07/19/2015 9:15 PM FENCE INSTALLER HELPER Pulse 113 07/19/2015 9:15 PM FENCE INSTALLER HELPER Temperature - - Respiratory Rate - - Oxygen Saturation - - Inhaled Oxygen Concentration - - Weight - - Height - - Body Mass Index - - documented in this encounter Discharge Summaries Rylee Romero R.N. - 07/19/2015 10:17 PM CST ED Discharge Instructions [place] [id number] [address] [address] Name: PUNEET CLAYTON Date of : 1985 12:00 AM Visit Date: 07/19/2015 9:06 PM [facility] Number: [id number] Address: [address] [place] [id number] Primary Care Provider: ALISON LOREDO PA-C IMPORTANT: [facility] in [place] would like to thank you for allowing us to assist you with your healthcare needs. The following includes patient education materials and informationregarding your injury/illness. Diagnosis: Strep Throat Pharyngitis Follow-Up Instructions: With: Address: When: ALISON LOREDO [address] [place] [id number] [facility] () Within As Needed Comments: [...] ?? Muffled voice ?? New rash ?? [id number] [facility], [address] [place] [address]. All rights reserved. This information is not [...] dont have one. Go to [email or web address] and click on Create Your Account. Then, [...] a ride home with a responsible libertarian. FORREST Cornejo AMANDA KAY , or responsible libertarian [...] a ride home with a responsible libertarian. FORREST Cornejo AMANDA KAY , or responsible libertarian have received this information and my questions have been answered. I have discussed any challenges I see with this plan with the nurse or physician. Patient Signature or Responsible Libertarian/Relationship Date Time Provider Signature Date Time This document has images extracted. Please consider using Anystream for all your patient education needs. Source: [employer] Document Id: [id number] E INSTALLER HELPER Rylee Romero R.N. - 07/19/2015 10:17 PM CST ED Depart Summary [facility] Emergency Department Clinical Discharge Summary PERSON INFORMATION Name PUNEET CLAYTON Age 29 Years 1985 12:00 AM Sex Female Language Slovak PCP ALISON LOREDO PA-C [id number] Reason [facility] - Sore Throat; Poss strep Specialty Enc Type Emergency Med Service Emergency Medicine Referred by Track Group [facility] ED Discharge 07/19/2015 10:17 PM Tracking Id [id number] Checkout 07/19/2015 10:17 PM Checkin 07/19/2015 9:06 PM Acuity 5 -Non Urgent Dispo Type * Discharged to Home or Self Care Arrival 07/19/2015 9:06 PM Reg Status Complete LOS 000 01:11 Address: [address] [place] [phone] Comment: PROVIDER INFORMATION Provider Role Provider Contact Time RYLEE ROMERO EQUALIZER OPERATOR Nurse 07/19/15 21:08 LUISA LOPEZ MD ED Provider 07/19/15 21:08 DIAGNOSIS Strep Throat Pharyngitis Comment: PATIENT EDUCATION INFORMATION Instructions: PHARYNGITIS, Strep (Confirmed) Follow up: With: Address: When: ALISON LOREDO [address] [place] [address] [phone] [employer] (9) Within As Needed Comments: Call for follow up appointment Source: [facility] [employer] Document Id: [id number] E INSTALLER HELPER documented in this encounter ED Notes Rylee Romero RRoverto - 07/19/2015 10:14 PM CST ED Disposition Summary ED Disposition Summary Entered On: 07/19/2015 22:14 FENCE INSTALLER HELPER Performed On: 07/19/2015 22:14 FENCE INSTALLER HELPER by RYLEE ROMERO EQUALIZER OPERATOR Disposition Summary Accompanied By : Spouse Printed Discharge Instructions Given to Patient : Yes RYLEE ROMERO RN - 07/19/2015 22:14 FENCE INSTALLER HELPER Source: [facility] [employer] Document Id: [id number] FENCE INSTALLER HELPER!4 E INSTALLER HELPER Rylee Romero R.N. - 07/19/2015 10:14 PM CST ED Pain Assessment ED Pain Assessment Entered On: 07/19/2015 22:14 FENCE INSTALLER HELPER Performed On: 07/19/2015 22:14 FENCE INSTALLER HELPER by RYLEE ROMERO RN Pain Assessment Pain Symptoms : Yes RYLEE ROMERO RN - 07/19/2015 22:14 FENCE INSTALLER HELPER Source: [facility] POWERCHART Document Id: [id number] FENCE INSTALLER HELPER!3 E INSTALLER HELPER Rylee Romero R.N. - 07/19/2015 9:14 PM CST ED Primary Assessment Document Has Been Updated ED Primary Assessment Entered On: 07/19/2015 21:15 FENCE INSTALLER HELPER Performed On: 07/19/2015 21:14 FENCE INSTALLER HELPER by RYLEE ROMERO RN Reason For Visit (As Of: 07/19/2015 21:20:00 FENCE INSTALLER HELPER) Problems(Active) Abuse Tobacco Smoking NOS (ICD-9-CM :305.1 [...] Medical ; Code: 346.90 ; Contributor System: Monetsu ; Last Updated: 12/12/2014 9:11 CDT ; Life Cycle Status: Active; Responsible Provider: RABIA NATHAN MD; Vocabulary: ICD-9-CM (ICD-9-CM :V22.2 ) Name of Problem: ; Onset Date: 2007 ; Recorder: GLEN ACOSTA; Confirmation: Confirmed ; Classification: Medical ; Code: V22.2 ; Contributor System: PostlingChart ; Last Updated: 01/21/2012 9:41 CDT ; [...] PNED ; Probability: 0 ; Diagnosis Code: [id number] Triage Chief Complaint Description : see note Mode of Arrival ED : Private vehicle Track : Medical Languages : Slovak Treatments Prior to Arrival : Acetaminophen Are you ? : No Is Patient Female and 13-50 no hysterectomy : Yes Status : Patient denies RYELE ROMERO RN - 07/19/2015 21:14 FENCE INSTALLER HELPER Pain Assessment Pain Symptoms : Yes RYLEE ROMERO RN - 07/19/2015 21:14 FENCE INSTALLER HELPER Respiratory Airway : Patent Respirations : Unlabored Respiratory Pattern : Regular RYLEE ROMERO RN - 07/19/2015 21:14 FENCE INSTALLER HELPER Cardiovascular Heart Rhythm : Regular Skin Color : Normal for ethnicity Skin Description : Dry Skin Temperature : Warm RYLEE ROMERO RN - 07/19/2015 21:14 FENCE INSTALLER HELPER Neurological Last Well Time Known : Yes Last Known Well Time : 07/19/2015 8:00 FENCE INSTALLER HELPER Level of Consciousness : Alert Orientation : Oriented x 3 Characteristics of Speech : Appropriate for age RYLEE ROMERO RN - 07/19/2015 21:14 FENCE INSTALLER HELPER ED Psychosocial Affect/Behavior : Calm Domestic Abuse Concerns : None Behavioral Health Screen/Safety Assmt : No RYLEE ROMERO RN - 07/19/2015 21:14 FENCE INSTALLER HELPER Gastrointestinal Nutrition ED : Adequate RYLEE ROMERO RN - 07/19/2015 21:14 FENCE INSTALLER HELPER Musculoskeletal Fall Prevention Education Provided : NA RYLEE ROMERO RN - 07/19/2015 21:14 FENCE INSTALLER HELPER EENT Mouth and Throat Symptoms : Swollen tonsils RYLEE ROMERO RN - 07/19/2015 21:19 FENCE INSTALLER HELPER Social Habits Tobacco Use/Currently Using : Yes Exposure to Tobacco Smoke : Patient smokes Smoking Status : Current every day smoker RYLEE ROMERO RN - 07/19/2015 21:14 FENCE INSTALLER HELPER Tobacco Use Grid Type : Cigarettes Cigarette Use Packs/Day : 0.5 RYLEE ROMERO RN - 07/19/2015 21:14 FENCE INSTALLER HELPER Alcohol Use Grid Alcohol Use : Yes RYLEE ROMERO RN - 07/19/2015 21:14 FENCE INSTALLER HELPER Recreational Drug Use Grid Drug Use : None RYLEE ROMERO RN - 07/19/2015 21:14 FENCE INSTALLER HELPER Source: [employer] Document Id: [id number] FENCE INSTALLER HELPER!3 E INSTALLER HELPER Luisa Lopez M.D. - 07/19/2015 9:14 PM CST Throat Pain *ED Patient: PUNEET FRIED Age: 29 years Sex: Female : 1985 Author: LUISA LOPEZ MD Attachments: None Associated Diagnosis: Strep Throat Pharyngitis Basic Information Additional information: Chief Complaint from Nursing Triage Note : Chief Complaint Description 07/19/2015 21:12 FENCE INSTALLER HELPER Chief Complaint Description 29 year old female [...] Headache Abuse Tobacco Smoking NOS (305.1) Resolved ([id number]): Resolved on 01/03/2008 at 22 years.. Surgical history: Pap smear ([id number]) on 01/25/2013 at 27 Years. Pap smear ([id number]) on 01/25/2013 at 27 Years.. Family history: [...] review:Lab results : Lab View 07/19/2015 21:45 FENCE INSTALLER HELPER Strep A Screen Rapid POS . Reexamination/ [...] LOPEZ MD On: 07/19/2015 10:06 PM Source: [facility] POWERCHART Document Id: [id number]} E INSTALLER HELPER Rylee Romero R.N. - 07/19/2015 9:12 PM CST ED Triage Assessment Document Has Been Updated ED Triage Assessment Entered On: 07/19/2015 21:14 FENCE INSTALLER HELPER Performed On: 07/19/2015 21:12 FENCE INSTALLER HELPER by RYLEE ROMERO RN Reason For Visit (As Of: 07/19/2015 21:14:31 FENCE INSTALLER HELPER) Problems(Active) Abuse Tobacco Smoking NOS (ICD-9-CM :305.1 ) Name of Problem: Abuse Tobacco Smoking NOS ; Recorder: MAURICE ADDISON; Confirmation: Confirmed ; Classification: Medical ; Code: 305.1 ; Contributor System: PostlingChart ; Last Updated: 12/12/2014 9:21 CDT ; [...] Medical ; Code: V22.2 ; Contributor System: Monetsu ; Last Updated: 01/21/2012 9:41 CDT ; [...] PNED ; Probability: 0 ; Diagnosis Code: [id number] Triage Chief Complaint Description : 29 year old female admits with complaints of sore throat a nd fever Mode of Arrival ED : Private vehicle Track : Medical Languages : Slovak Treatments Prior to Arrival : Acetaminophen Are you ? : No Is Patient Female and 13-50 no hysterectomy : Yes Status : Patient denies RYLEE ROMERO RN - 07/19/2015 21:12 FENCE INSTALLER HELPER Pain Assessment Pain Symptoms : Yes RYLEE ROMERO RN - 07/19/2015 21:12 FENCE INSTALLER HELPER Pain Scale Pain Scale Verbal 0-10 : Open RYLEE ROMERO RN - 07/19/2015 21:12 FENCE INSTALLER HELPER Pain Pain Assessment Grid Pain 1 Location : Throat Intensity : 5 RYLEE ROMERO RN - 07/19/2015 21:12 FENCE INSTALLER HELPER ED Physician Notification Time ED Physician Notification Time : 07/19/2015 21:14 FENCE INSTALLER HELPER RYLEE ROMERO RN - 07/19/2015 21:12 FENCE INSTALLER HELPER JAYDEN JAYDEN Level 1 : No JAYDEN Level 2 : No JAYDEN Level 3 : Many RYLEE ROMERO RN - 07/19/2015 21:12 FENCE INSTALLER HELPER DCP GENERIC CODE Tracking Acuity : 5 -Non Urgent Tracking Group : [facility] ED RYLEE ROMERO RN - 07/19/2015 21:12 FENCE INSTALLER HELPER Allergy (As Of: 07/19/2015 21:14:31 FENCE INSTALLER HELPER) Allergies (Active) penicillins Estimated Onset Date: Unspecified ; Created By: GLEN ACOSTA; Reaction Status: Active ;Category: Drug ; Substance: penicillins ; Type: Allergy ; Updated By: GLEN ACOSTA; Reviewed Date: 04/22/2015 10:36 CDT Immunizations Influenza : None RYLEE ROMERO RN - 07/19/2015 21:12 FENCE INSTALLER HELPER Source: [employer] Document Id: [id number] FENCE INSTALLER HELPER!30 E INSTALLER HELPER documented in this encounter Miscellaneous Notes Miscellaneous - Conversion, Historical Provider Ser - 07/19/2015 10:17 PM FENCE INSTALLER HELPER Coding Summary-Paper Based CODING DATE: 07/29/2015 FINAL CA [facility] STATUS: * Discharged to Home or [...] PAGAN Date Saved: 07/29/2015 01:50 pm Source: [employer] Document Id: [id number] Miscellaneous - Rylee Romero RMarcos. - 07/19/2015 10:14 PM CST Valuables/Belongings Valuables/Belongings Entered On: 07/19/2015 22:14 FENCE INSTALLER HELPER Performed On: 07/19/2015 22:14 FENCE INSTALLER HELPER by RYLEE ROMERO RN Valuables/Belongings Belongings Sent Home With : Allsent with patient RYLEE ROMERO RN - 07/19/2015 22:14 FENCE INSTALLER HELPER Source: [employer] Document Id: [id number] FENCE INSTALLER HELPER!3 E INSTALLER HELPER Miscellaneous - Rylee Romero R.N. - 07/19/2015 9:06 PM CST Facility Charge Ticket 2.0 11.0 DX Facility Charge Ticket 2.0 11.0 DX Entered On: 07/19/2015 22:14 FENCE INSTALLER HELPER Performed On: 07/19/2015 21:06 FENCE INSTALLER HELPER by RYLEE ROMERO RN Facility Charge Ticket [...] Nursing Notes ED Primary Assessment,07/19/15 21:14,RYLEE ROMERO EQUALIZER OPERATOR Primary Assessment,07/19/15 21:14,RYLEE ROMERO EQUALIZER OPERATOR Pain Assessment,07/19/15 22:14,RYLEE ROMERO RN [place]x Nursing Assessment : Triage and 1-2 nursing assessments [place] Disposition : Discharge Disposition RTF : discharge [place] Total Points with Diagnosis Control : 5 [place]x Visit Level : 79451 Level 3 Treatments Prior to Arrival : Acetaminophen RYLEE ROMERO RN - 07/19/2015 22:14 FENCE INSTALLER HELPER Source: [facility] POWERCHART Document Id: [id number] FENCE INSTALLER HELPER!19 E INSTALLER HELPER documented in this encounter Plan of Treatment Not on filedocumented as of this encounter Procedures Procedure Name Priority Date/Time Associated Diagnosis Comme nts RAPID STREP A Routine 07/19/2015 9:45 PM Results for this SCREEN FENCE INSTALLER HELPER procedure are i n the results section. documented in this encounter Results (ABNORMAL) Rapid Strep A Screen (07/19/2015 9:45 PM FENCE INSTALLER HELPER) [facility] gist Method Time Signature HXStrep A (POSITIVE) POWERCHART Screen Rapid HXFinal Positive for POWERCHART Group A Strep by rapid screen. Specimen (Source) Anatomical Collection Method Collection Time Re ceived Time Location / / Volume Laterality Throat 07/19/2015 9:45 PM FENCE INSTALLER HELPER Luisa Lopez M.D. LAB MICROBIOLOGY - GENERAL O RDERABLES Performing Organization Address City/State/ZIP Code Phon e Number POWERCHART documented in this encounter Visit Diagnoses Not on filedocumented in this encounter Additional Health Concerns Assessment Noted Time PHQ-9 Depression Total Score: 11 12/13/2014 9:50 AM CD T documented as of this encounter
--- OUTSIDE RECORDS SUMMARY | 2022-07-29 08:31 | XMS_ITS | Encounter Summary ---
:1985 Author Organization [facility] Address [address] [place] [address] Care Team Providers Name Role Phone Unavailable Primary Care Provider Unavailable Encounter Details Date Type Department Care Team Description 02/07/2016 Hospital Encounter [facility] Kyle Colmenares M .D., M.P.H. [address] [place], [place] [phone] (Wo rk) Social History [...] How often do you attend yazidism or sabianist More than 4 time s [...] Only Visit Documentation : MRO review for [facility]. DEV CASPER LPN - 02/07/2016 11:27 CDT Source: [facility] POWERCHART Document Id: [id number] CDT!3 documented in this encounter Plan of Treatment Not on filedocumented as of this encounter Visit Diagnoses Not on filedocumented in this encounter Additional Health Concerns Assessment Noted Time PHQ-9 Depression Total Score: 11 12/13/2014 9:50 AM CD T documented as of this encounter
--- OUTSIDE RECORDS SUMMARY | 2022-07-29 08:31 | XMS_ITS | Encounter Summary ---
:1985 Author Organization [facility] Address [address] [place] [address] Care Team Providers Name Role Phone Unavailable Primary Care Provider Unavailable Encounter Details Date Type Department Care Team Description 04/22/[address] [facility] Nicci Gutiérrez D.O. [address] [place] [address] (Wo rk) Social History Tobacco [...] How often do you attend hoahaoism or zoroastrian More than 4 time s [...] CHIEF COMPLAINT/REASON FOR VISIT consult Denys in [place]/migraine headaches daily REFERRAL SOURCE Trev Mcfarlane MD [...] year old son. 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 Rarely drinks [...] tendon reflexes (with reinforcement) Babinski: Absent Coordination: Rwvxrq-wo-qcho is normal. AMRs are normal. Sensation: Vibratory [...] scheduled to have a sleep study in [place] to evaluate whether this may be a [...] # 60 tab(s), 5 Refill(s), Maintenance, Pharmacy: [facility] [id number] Orders: SUMAtriptan, 100 mg = 1 tab(s), PO, As Directed, PRN Migraine headache, Take 1 tablet at onset of headache. Repeat after two hours if needed., # 18 tab(s), 5 Refill(s), Maintenance, Pharmacy: [facility] [id number] FOOTNOTES [1]MR Brain w/ + w/o contrast; CATHI MONTIEL 03/20/2015 10:30 CDT Electronically Signed By: MARIAELENA GUTIÉRREZ DO On: 04/22/2015 12:01 PM Source: [facility] [employer] Document Id: [id number] documented in this encounter Nursing Notes Mariaelena Gutiérrez D.O. - 04/22/2015 11:30 AM CDT Ambulatory Patient Education The following Patient Education Materials have been given to the patient: Patient Education Materials: Source: [facility] [employer] Document Id: [id number] documented in this encounter Miscellaneous Notes Miscellaneous - Mariaelena Gutiérrez D.O. - 04/22/2015 11:30 AM CDT Ambulatory Patient Summary [facility] [address], [place] [address] [place], [place] [id number] Visit Information Name: PUNEET FRIED [facility] Number: [id number] Current Date: 04/22/2015 11:30:34 Physicians Attending Provider: MARIAELENA GUTIÉRREZ DO Primary Care Provider: ALISON LOREDO PA-C FARIHA PUNEET ALVARADO has been given the following list of follow-up instructions, medication list, and patient education materials: Follow-up Instructions With: Address: When: MARIAELENA GUTIÉRREZ [address] [place] [address] [place] [address] [employer] (1) In 3 months 07/22/2015 Comments: Do [...] if needed. This is a CHANGE Routedto [place] [address] [place]HEMIAH [place]OSCO [id number] topiramate (topiramate 25 mg oral tablet) 2 Tablet(s), Oral, once a day 1 tab at bedtime x 3 days, then 1 2x day x 3 days, then 1 in AM and 2 HS x 3 days, then 2 tabs 2x day New Routed to [place] [address] [place]OS[place] [id number] Stop Taking [...] if you dont have one. Go to [email or web address] and click on Create Your Account. Then, follow the directions to complete the online form. Youll be asked for your [facility] number which you can find at the top of this document. Your Goals/Additional instructions: Source: [facility] POWERCHART Document Id: [id number] Miscellaneous - Mariaelena Gutiérrez D.O. - 04/22/2015 11:30 AM CDT Ambulatory Discharge Medication List [facility] [address], [address] [place], [place] [phone] Visit Information Name: PUNEET FRIED [facility] Number: [id number] Visit Date: 04/22/2015 11:30:32 Attending [...] if needed. This is a CHANGE Routedto [place] [address] [place]OSCO [id number] topiramate (topiramate 25 mg oral tablet) 2 Tablet(s), Oral, once a day 1 tab at bedtime x 3 days, then 1 2x day x 3 days, then 1 in AM and 2 HS x 3 days, then 2 tabs 2x day New Routed to [place] [address] [place]OSCO [id number] Stop Taking the Following Medications: EPINEPHrine (EpiPen [...] DO Signed On:22-APR-2015 11:29:21 Additional Information: Source: [facility] POWERCHART Document Id: [id number] Miscellaneous - Sima Mccormick, LiorPBrittaneyN. - 04/22/2015 10:39 AM CDT Adult Hardscape Foreman Intake/History Adult Hardscape Foreman Intake/History Entered On: 04/22/2015 10:47 CDT Performed On: 04/22/2015 10:39 CDT by SIMA MCCORMICK LPN Intake Chief Complaint : consult Lagalwar in [place]/migraine headaches daily Temperature Core : 35.8 DegC(Converted [...] Preferred Communication Mode : Verbal Languages : Slovak Is Patient Female and [...] MCCORMICK LPN - 04/22/2015 10:39 CDT Source: [facility] [employer] Document Id: [id number] CDT!54 documented in this encounter Plan of Treatment Not on filedocumented as of this encounter Visit Diagnoses Not on filedocumented in this encounter Additional Health Concerns Assessment Noted Time PHQ-9 Depression Total Score: 11 12/13/2014 9:50 AM CD T documented as of this encounter
--- OUTSIDE RECORDS SUMMARY | 2022-07-29 08:31 | XMS_ITS | Encounter Summary ---
:1985 Author Organization [facility] Address [address] [place] [address] Care Team Providers Name Role Phone Unavailable Primary Care Provider Unavailable Encounter Details Date Type Department Care Team Description 11/05/2016 Hospital Encounter [facility]X [facility] Venu Nguyen M.D. [address] [place], [place] [phone] (Wo rk) Social History [...] How often do you attend sikh or jainism More than 4 time s [...] Nguyen M.D. - 11/05/2016 12:13 PM CDT [id number] Ms. Cooley is a pleasant 30-year-old accompanied [...] than a pack per week. Works at [employer] [facility] [employer] Cover. PHYSICAL EXAMINATION GENERAL: Appears well, no distress. [...] 61, I am not sure proceeding in [place] would even be an option. She will [...] Venu Nguyen M.D./robb cc: Blaire Thornton P.A.-C. [facility] in [address] [place] [address] Electronically Signed By: VENU NGUYEN MD On: 12/01/2016 01:38 PM Source: [facility] MHSDOLBEYNONRADSYS Document Id: [id number] documented in this encounter Miscellaneous Notes Miscellaneous - Madhavi Addison R.N. - 11/05/2016 12:26 PM CDT Adult Wharf Tender Helper Intake/History Adult Wharf Tender Helper Intake/History Entered On: 11/05/2016 12:30 CDT Performed On: 11/05/2016 12:26 CDT by MADHAVI ADDISON v groove cutter Chief Complaint : chronic sore throat, large [...] Drug Use Grid Drug Use : None MADAHVI ADDISON RN - 11/05/2016 12:26 CDT [email or web address] Document Id: [id number] CDT!44 documented in this encounter Plan of Treatment Not on filedocumented as of this encounter Procedures Procedure Name Priority Date/Time Associated Diagnosis Comme nts RAPID STREP A Routine 11/16/2016 10:12 AM Results for this SCREEN CDT procedure are i n the results section. documented in this encounter Results Rapid Strep A Screen (11/16/2016 10:12 AM CDT) [facility] Method Time Signature HXStrep A POWERCHART [...]
--- OUTSIDE RECORDS SUMMARY | 2022-07-29 08:31 | XMS_ITS | Encounter Summary ---
:[address] [facility] Address [address] [place] [address] Care Team Providers Name Role Phone Unavailable Primary Care Provider Unavailable Encounter Details Date Type Department Care Team Description 01/24/2015 - Hospital Encounter HX [facility] ED Rizwan Dean M.D. 01/25/2015 [address] [place] [address] (Wo rk) Social History Tobacco [...] How often do you attend congregational or jainism More than 4 time s [...] 01/25/2015 12:43 AM CDT ED Discharge Instructions [address] [place] [address] Name: PUNEET FRIED Date of : 1985 12:00 AM Visit Date: 01/24/2015 10:[address] [facility] Number: [id number] Address: [address] [place] [address] [phone] Primary Care Provider: ALISON MONACO PA-C IMPORTANT: [facility] in [place] would like to thank you for allowing us to assist you with your healthcare needs. The following includes patient education materials and information regarding your injury/illness. Diagnosis: Angioedema Initial; Urticaria Allergic Follow-Up Instructions: With: Address: When: ALISON MONACO [address] [place] [phone] Business (1) Within As Needed Comments: Your [...] Colored fluid draining from the wound ?? [phone] [place] [address]. All rights reserved. This information is not intended as a substitute for professional medical care. Always follow your healthcare professional's instructions. Angioedema Angioedema (pronounced dcjqg-x-jndwm) is a sudden appearance of swollen patches [...] Trouble breathing ?? Severe abdominal pains ?? [phone], [place] [address]. All rights reserved. This information is not [...] a ride home with a responsible democrat. IFARIHA AMANDA KAY , or responsible democrat have [...] about how to take those medications. PUNEET RFIED or designee has reviewed the home medications [...] document has images extracted. Please consider using Super[employer]estrian for all your patient education needs. Source: [facility] POWERCHART Document Id: [id number] Pati Shepard R.N. - 01/25/2015 12:43 AM CDT ED Depart Summary [facility] Emergency Department Clinical Discharge Summary PERSON INFORMATION Name PUNEET FRIED Age 29 Years 1985 12:00 AM Sex Female Language Cape Verdean PCP ALISON MONACO PA-C Marital Status Single Visit Id Visit Reason Insect bite and/or sting; ALLERGIC REACTION TO BUG BITE Specialty Enc Type Emergency Med Service Emergency Medicine Referred by Track Group [facility] ED Discharge 01/25/2015 12:35 AM Tracking Id [id number] Checkout 01/25/2015 12:35 AM Checkin 01/24/2015 10:25 PM Acuity 4 -Less Urgent Dispo Type * Discharged to Home or Self Care Arrival 01/24/2015 10:25 PM Reg Status Complete LOS 000 02:10 Address: [address] [place] [address] [phone] Comment: PROVIDER INFORMATION Provider Role Provider Contact Time KAREY PENA CODING CLERKS SUPERVISOR Nurse 01/24/15 22:32 PATI SHEPARD RN ED Nurse 01/24/15 23:08 SLIM DEAN MD ED Provider 01/24/15 23:37 DIAGNOSIS Angioedema Initial; Urticaria Allergic Comment: PATIENT EDUCATION INFORMATION Instructions: ALLERGIC REACTION, Insect (General); ANGIOEDEMA Follow up: With: Address: When: ALISON MONACO [address] [place] [address] [phone] [employer] (9) Within As Needed Comments: Source: [facility] POWERCHART Document Id: [id number] documented in this encounter ED Notes Pati [...] SHEPARD RN - 01/25/2015 0:40 CDT Source: [facility] Genapsys Document Id: [id number] CDT!7 Slim Dean - 01/24/2015 11:36 PM [...] 300.4 / Confirmed Dysthymic disorder Resolved: / [id number]. Physical Examination Vital Signs: Vital Signs 01/24/2015 [...] Time 01/25/2015 00:35:00, to home. Prescriptions: Prescription Retail Loan Originator Assistant Pharmacy: EpiPen Auto-Injector 0.3 mg injectable kit [...] DEAN MD On: 01/25/2015 12:36 AM Source: [facility] POWERCHART Document Id: [id number]} Karey Pena, R.N. - 01/24/2015 10:37 PM [...] Medical ; Code: V22.2 ; Contributor System: nCrypted Cloud ; Last Updated: 01/21/2012 9:41 CDT ; Life Cycle Date: 01/12/2012 ; Life Cycle Status: Active ; Responsible Provider: GLEN ACOSTA; Vocabulary: ICD-9-CM Diagnoses(Active) Insect bite and/or sting Date: 01/24/2015 ; Diagnosis Type: Reason For Visit ; Confirmation: Complaint of ; Clinical Dx: Insect bite and/or sting ; Classification: Medical ; Clinical Service: Emergencymedicine ; Code: PNED ; Probability: 0 ; Diagnosis Code: [id number] Triage Chief Complaint Description : 29 year old female with complaints of a bug bite on the left side of the neck. Patient is having hot flashes and SOB at times. Bug bite patient around 0530pm tonight. Information Given By : Patient, Friend Accompanied By : Friend Mode of Arrival ED : Private vehicle Track : Medical Languages : Cape Verdean Treatments Prior to Arrival : None Are [...] Onset Date: Unspecified ; Created By: GLEN CAOSTA; Reaction Status: Active ;Category: Drug ; Substance: [...] PENA RN - 01/24/2015 22:37 CDT [facility] Document Id: [id number] CDT!53 documented in this encounter Miscellaneous Notes Miscellaneous - Pati Shepard R.N. - 01/25/2015 12:35 AM CDT Valuables/Belongings Valuables/Belongings Entered On: 01/25/2015 0:41 CDT Performed On: 01/25/2015 0:35 CDT by PATI SHEPARD RN Valuables/Belongings Valuables/Belongings Grid Valuables with Patient Clothes, Patient Valuables : Other: cellphone PATI SHEPARD RN - 01/25/2015 0:41 CDT Source: [facility] [employer] Document Id: [id number] CDT!5 Miscellaneous - Conversion, Historical Provider Ser - 01/25/2015 12:35 AM CDT Coding Summary-Paper Based CODING DATE: 02/07/2015 FINAL [facility] STATUS: * Discharged [...] ZENG Date Saved: 02/07/2015 11:40 am Source: [facility] [employer] Document Id: [id number] Miscellaneous - Pati Shepard R.N. - 01/25/2015 12:17 AM CDT Communication Note Communication Note Entered On: 01/25/2015 0:17 CDT Performed On: 01/25/2015 0:17 CDT by PATI SHEPARD RN Communication Assessment Communication Note : Feeling better. PATI SHEPARD RN - 01/25/2015 0:17 CDT Source[facility] Document Id: [id number] CDT!3 Miscellaneous - Pati Shepard R.N. - [...] Control : 2 Lynx Visit Level : 12849 Level 2 Treatments Prior to Arrival : None PATI SHEPARD RN - 01/25/2015 0:41 CDT Source: [employer] Document Id: [id number] CDT!18 documented in this encounter Plan of Treatment Not on filedocumented as of this encounter Visit Diagnoses Not on filedocumented in this encounter Additional Health Concerns Assessment Noted Time PHQ-9 Depression Total Score: 11 12/13/2014 9:50 AM CD T documented as of this encounter
--- OUTSIDE RECORDS SUMMARY | 2022-07-29 08:31 | XMS_ITS | Encounter Summary ---
:1985 Author Organization [facility] Address [address] [place] [address] Care Team Providers Name Role Phone Unavailable Primary Care Provider Unavailable Encounter Details Date Type Department Care Team Description 03/15/2015 Hospital Encounter HX [facility] Barbra Vora M.D. [address] [place] [phone] (Wo rk) Social History Tobacco Use [...] How often do you attend quaker or synagogue More than 4 time s [...] Chang M.D. - 03/15/2015 9:12 AM CDT [id number] Document Contains Addenda REVISION HISTORY March 18, 2015 at 10:17 a.m. - Addendum added by Trev Chang M.D. The document below is the most current and includes the modifications. The patient has no history of narcolepsy in the past, but recently has been falling asleep more easily. She has to go to work in [employer] and one night at 10 p.m. as [...] a consultation with the pulmonary specialists at [place]. She should take Zoloft 150 mg a.m. [...] CHANG MD On: 03/18/2015 03:53 PM Source: [facility] MHSDOLBEYNONRADSYS Document Id: [id number] documented in this encounter Miscellaneous Notes Miscellaneous - Trev Chang M.D. - 03/15/2015 10:16 AM CDT Ambulatory Patient Summary [address] [id number] Visit Information Name: PUNEET FRIED [facility] Number: [id number] Current Date: 03/15/2015 10:16:07 Physicians [...] a day Discontinue [facility]ine [facility] [address] [id number] SUMAtriptan (SUMAtriptan 50 mg oral tablet) 1 Tablet(s), Oral, as directed as needed for Migraine headache Take 1 tablet at onset of headache. Repeat after two hours if needed. traZODone (traZODone 50 mg oral tablet) 1 Tablet(s), Oral, once a day [facility] [address] [address] Stop Taking the Following Medications: [...] Youll be asked for your [facility] number which you can find at the top of this document. Your Goals/Additional instructions: Puneet , please do not drive to work untill your sleep problem is resolved.Also see Neurologist in a month; need MRI Scan of Brain first. Source: [facility] POWERCHART Document Id: [id number] Miscellaneous - Trev Chang M.D. - 03/15/2015 10:16 AM CDT Ambulatory Discharge Medication List [address] [id number] Visit Information Name: FARIHA PUNEETCARRIE ALVARADO [facility] Number: [id number] Visit Date: 03/15/2015 10:16:05 Attending [...] a day Discontinue Velafaxine New Routed to [facility] [place] [address] SUMAtriptan (SUMAtriptan 50 mg oral tablet) 1 Tablet(s), Oral, as directed as needed for Migraine headache Take 1 tablet at onset of headache. Repeat after two hours if needed. traZODone (traZODone 50 mg oral tablet) 1 Tablet(s), Oral, once a day New Routed to [facility] [address] [address] Stop Taking the Following Medications: Medication list [...] Signed By: Signed On: Additional Information: Source: [facility] POWERCHART Document Id: [id number] Miscellaneous - Trev Chang M.D. - 03/15/2015 10:13 AM CDT Addendum by TREV CHANG MD on 22 March 2015 08:51:25 CDT will do it today.Thanks Addendum by ADITYA HWANG on 15 March 2015 15:39:00 CDT From: ADITYA HWANG To: TREV CHANG MD; Sent: 03/15/2015 15:39:00 CDT ! Subject: FW: The dictation for this patient needs to be submitted LEN for the Referrals to [facility]. Addendum by ADITYA HWANG on 15 March 2015 14:28:10 CDT From: ADITYA HWANG To: ADITYA HWANG; Sent: 03/15/2015 14:28:10 CDT Subject: RE: Referral submitted via online. [place] scheduling staff will contact patient with appt. info. From: TREV CHANG MD To: ADITYA HWANG; Sent: 03/15/2015 10:13:53 CDT Aditya, this patient,Puneet, has an extremely serious problem with sleep Apnea. Please arrange Consult with sleep Specialist SOON POSSIBLE. Study can follow. Source: [facility] POWERCHART Document Id: [id number] Miscellaneous - Mimi Herrrea L.P.N. - 03/15/2015 9:36 AM CDT Adult Public Health Service Officer Intake/History Adult Public Health Service Officer Intake/History Entered On: 03/15/2015 9:39 CDT Performed [...] 03/15/2015 9:36 CDT General Info Languages : Polish Is Patient Female and [...] LPN, RT - 03/15/2015 9:36 CDT Source: [employer] Document Id: [id number] CDT!40 documented in this encounter Plan of Treatment Not on filedocumented as of this encounter Visit Diagnoses Not on filedocumented in this encounter Additional Health Concerns Assessment Noted Time PHQ-9 Depression Total Score: 11 12/13/2014 9:50 AM CD T documented as of this encounter
--- OUTSIDE RECORDS SUMMARY | 2022-07-29 08:31 | XMS_ITS | Encounter Summary ---
:1985 Author Organization [facility] Address [address] [place] [address] Care Team Providers Name Role Phone Unavailable Primary Care Provider Unavailable Encounter Details Date Type Department Care Team Description 03/22/2015 Hospital Encounter HX [facility] Barbra Vora M.D. [address] [place] [phone] (Wo rk) Social History Tobacco Use [...] How often do you attend zoroastrianism or buddhist More than 4 time s [...] restricted diffusion or infarct. Marcio Briceno MD. [id number] 20-Mar-2015 10:52 [1] IMPRESSION/REPORT/PLAN 1. Cyst Brain [...] Ordered: OV Est Pt Level 2 - 25373 - 10 min FOOTNOTES [1]MR Brain w/ + w/o contrast; CATHI MONTIEL 03/20/2015 10:30 CDT Electronically Signed By: LEONORA NATHAN MD On: 03/22/2015 10:41 AM Source: [facility] POWERCHART Document Id: [id number] documented in this encounter Miscellaneous Notes Miscellaneous [...] None Behavioral Health Screen/Safety Assmt : No Hinduism Preference : No qualifying data available. FRANCESCA LOZADA LPN - 03/22/2015 8:03 CDT Advance Directive Advanced Directives : No Advance Directive Additional Information : No FRANCESCA LOZADA LPN - 03/22/2015 8:03 CDT Educ Needs Learning Style Preference Adult Grid Patient : None Family : None FRANCESCA LOZADA LPN - 03/22/2015 8:03 CDT Source: [facility] POWERCHART Document Id: [id number] CDT!35 Miscellaneous - Francesca Lozada L.P.N. - 03/22/2015 7:59 AM CDT Adult Laborer Yard Intake/History Adult Laborer Yard Intake/History Entered On: 03/22/2015 8:02 CDT Performed [...] 03/22/2015 7:59 CDT General Info Languages : Chilean Is Patient Female and [...] Cigarette Use Packs/Day : 0.5 FRANCESCA LOZADA [facility] - 03/22/2015 7:59 CDT Alcohol Use : No FRANCESCA LOZADA [facility] - 03/22/2015 7:59 CDT Caffeine Use Grid Caffeine Use : Current Type : Coffee, Soft drinks Frequency : Occasionally FRANCESCA LOZADA [facility] - 03/22/2015 7:59 CDT Recreational Drug Use Grid Drug Use : None FRANCESCA LOZADA [facility] - 03/22/2015 7:59 CDT Source: [employer] Document Id: [id number] CDT!51 documented in this encounter Plan of Treatment Not on filedocumented as of this encounter Visit Diagnoses Not on filedocumented in this encounter Additional Health Concerns Assessment Noted Time PHQ-9 Depression Total Score: 11 12/13/2014 9:50 AM CD T documented as of this encounter
--- OUTSIDE RECORDS SUMMARY | 2022-07-29 08:31 | XMS_ITS | Encounter Summary ---
:1985 Author Organization [facility] Address [address] [place] [address] Care Team Providers Name Role Phone Unavailable Primary Care Provider Unavailable Encounter Details Date Type Department Care Team Description 03/05/2015 Hospital Encounter HX [facility] ED Joslyn Snyder M.D. [address] [place], [place] [address] (Wo [...] How often do you attend muslim or adventist More than 4 time s [...] 03/05/2015 10:42 AM CDT ED Depart Summary [facility] Emergency Department Clinical Discharge Summary PERSON INFORMATION Name PUNEET FRIED Age 29 Years 1985 12:00 AM Sex Female Language German PCP ALISON MONACO PA-C Marital Status Single Visit Id Visit Reason Throat pain - Adult; Extreme Throat Pain Specialty Enc Type Emergency Med Service Emergency Medicine Referred by Track Group [facility] ED Discharge 03/05/2015 10:30 AM Tracking Id [id number] Checkout 03/05/2015 10:30 AM Checkin 03/05/2015 6:02 AM Acuity 3 -Urgent Dispo Type * Discharged to Home or Self Care Arrival 03/05/2015 6:02 AM Reg Status Complete LOS 000 04:28 Address: [address] [place] [address] [phone] Comment: PROVIDER INFORMATION Provider Role Provider Contact Time JOSLYN SNYDER MD ED Provider 03/05/15 06:20 MAURICE HAYS WOOD CARVING LATHE OPERATOR Nurse 03/05/15 06:20 JOSLYN SNYDER MD ED Provider 03/05/15 06:25 DAWNA HART WOOD CARVING LATHE OPERATOR Nurse 03/05/15 07:32 DIAGNOSIS Abscess Peritonsillar Comment: PATIENT EDUCATION INFORMATION Instructions: PERITONSILLAR ABSCESS Follow up: Source: [facility] POWERCHART Document Id: [id number] Dawna Hart R.N. - 03/05/2015 10:42 AM CDT ED Discharge Instructions [address] [place] [address] Name: PUNEET FRIED Date of : 1985 12:00 AM Visit Date: 03/05/2015 6:02 AM [facility] Number: [id number] Address: [address] [place] [address] [phone] Primary Care Provider: ALISON MONACO PA-C IMPORTANT: [facility] in [place] would like to thank you for allowing [...] -- Trouble breathing or noisy breathing ?? [id number] [place] [address]. All rights reserved. This information is not [...] dont have one. Go to [email or web address] and click on Create Your Account. Then, [...] Date Time Provider Signature Date Time Source: As Seen on TV Document Id: [id number] documented in this encounter ED Notes Dawna [...] HART RN - 03/05/2015 10:41 CDT Source: As Seen on TV Document Id: [id number] CDT!8 Dawna Hart R.N. - 03/05/2015 9:56 [...] HART RN - 03/05/2015 9:56 CDT Source: As Seen on TV Document Id: [id number] CDT!10 Dawna Hart R.N. - 03/05/2015 8:59 [...] HART RN - 03/05/2015 8:59 CDT Source: As Seen on TV Document Id: [id number] CDT!10 Dawna Hart R.N. - 03/05/2015 7:30 [...] HART RN - 03/05/2015 7:30 CDT Source: As Seen on TV Document Id: [id number] CDT!12 Dawna Hart R.N. - 03/05/2015 7:27 [...] HART RN - 03/05/2015 7:27 CDT Source: [facility] [employer] Document Id: [id number] CDT!10 Joslyn Snyder M.D. - 03/05/2015 6:26 [...] She was seen in emergency room in [place] where she was diagnosed with strep throat [...] Bed, Once, 03/05/2015 6:27 CDT, [facility] ED, Launch Orders Pharmacy: [email or web address] (Order [...] The patient was told to go to [place] [facility] for further management and [...] SNYDER MD On: 03/05/2015 10:19 AM Source: [facility] POWERCHART Document Id: [id number]} Maurice Hays RBrittaneyN. - 03/05/2015 6:14 AM [...] Medical ; Code: 305.1 ; Contributor System: VouchAR ; Last Updated: 12/12/2014 9:21 CDT ; Life Cycle Date: 12/12/2014 ; Life Cycle Status: Active ; Responsible Provider: MAURICE ADDISON; Vocabulary: ICD-9-CM Dysthymic Disorder (ICD-9-CM :300.4 ) Name of Problem: Dysthymic Disorder ; Onset Date: 08/01/2010 ;Confirmation: Confirmed ; Classification: Medical ; Code: 300.4 ; Contributor System: VidtelChart ; Last Updated: 12/12/2014 9:11 CDT ; Life Cycle Status: Active ; Vocabulary: ICD-9-CM ; Comments: - Dysthymic disorder Headache (ICD-9-CM :784.0 ) Name of Problem: Headache ; Onset Date: 10/24/2007 ; Confirmation: Confirmed ; Classification: Medical ; Code: 784.0 ; Contributor System: VidtelChart ; Last Updated: 12/12/2014 9:11 CDT ; [...] PNED ; Probability: 0 ; Diagnosis Code: [id number] Triage Chief Complaint Description : see triage Mode of Arrival ED : Private vehicle, Ambulatory Track : Medical Languages : German Treatments Prior to Arrival : Acetaminophen, Ibuprofen [...] HAYS RN - 03/05/2015 6:14 CDT Source: [facility] [employer].comCHART Document Id: [id number] CDT!48 Maurice Hays RMarcos. - 03/05/2015 6:09 [...] Medical ; Code: 346.90 ; Contributor System: VidtelChart ; Last Updated: 12/12/2014 9:11 CDT ; [...] PNED ; Probability: 0 ; Diagnosis Code: [id number] Triage Chief Complaint Description : Pt presents with sore throat. Diagnosed February 27 with strep was seen in ER March 02 again and changed antibiotics. Pain continues, hard to swallow and swollen. Tonsils hugemore on left then right side. Information Given By : Patient Accompanied By : Alone Mode of Arrival ED : Private vehicle, Ambulatory Track : Medical Languages : German Vital Signs Assessed : Yes Treatments Prior [...] 3 -Urgent Tracking Group : [facility] ED MAURICE HAYS RN - 03/05/2015 6:09 CDT Allergy (As Of: 03/05/2015 06:14:25 CDT) Allergies (Active) penicillins Estimated Onset Date: Unspecified ; Created By: GLEN ACOSTA; Reaction Status: Active ;Category: Drug ; Substance: penicillins ; Type: Allergy ; Updated By: GLEN ACOSTA; Reviewed Date: 03/05/2015 6:14 CDT Immunizations Immunizations Current : Yes MAURICE HAYS RN - 03/05/2015 6:09 CDT Source: As Seen on TV Document Id: [id number] CDT!48 documented in this encounter Miscellaneous Notes Miscellaneous - Dawna Hart R.N. - 03/05/2015 10:41 AM CDT Valuables/Belongings Valuables/Belongings Entered On: 03/05/2015 10:41 CDT Performed On: 03/05/2015 10:41 CDT by DAWNA HART RN Valuables/Belongings Belongings Sent Home With : patient DAWNA HART RN - 03/05/2015 10:41 CDT Source: As Seen on TV Document Id: [id number] CDT!3 Miscellaneous - Conversion, Historical Provider Ser - 03/05/2015 10:30 AM CDT Coding Summary-Paper Based CODING DATE: 03/18/2015 FINAL [facility] STATUS: * Discharged to Home [...] PATRICK Date Saved: 03/18/2015 11:39 am Source: [facility] POWERCHART Document Id: [id number] Miscellaneous - Dawna Hart RRoverto - 03/05/2015 6:02 AM CDT Facility Charge Ticket 2.0 11.0 DX Facility Charge Ticket 2.0 11.0 DX Entered On: 03/05/2015 10:41 CDT Performed On: 03/05/2015 6:02 CDT by DAWNA HATR RN Facility Charge Ticket 2.0 11.0 DX [...] Control : 7 Lynx Visit Level : 51233 Level 3 Treatments Prior to Arrival : Acetaminophen, Ibuprofen DAWNA HART RN - 03/05/2015 10:41 CDT Source: [facility] POWERCHART Document Id: [id number] CDT!19 documented in this encounter Plan of [...] Mononucleosis Screen, POCT (03/05/2015 6:54 AM CDT) [facility] Method Time Signature Infectious POWERCHART [place] Test, S HXFinal Negative POWERCHART HXFinal Reference: POWERCHART Negative Specimen (Source) Anatomical Collection Method Collection Time Re ceived Time Location / / Volume Laterality Blood 03/05/2015 6:54 AM CDT Joslyn Snyder M.D. LAB POCT ORDERABLES-MANUAL Performing Organization Address City/[facility] Code Phon e Number POWERCHART Test, Qualitative, Urine (03/05/2015 6:30 AM CDT) [facility] Method Time Signature HXBeta-hCG Negative POWERCHART Qualitative Urine Specimen (Source) Anatomical Collection Method Collection Time Re ceived Time Location / / Volume Laterality Urine 03/05/2015 6:30 AM CDT Joslyn Snyder M.D. LAB URINE ORDERABLES Performing Organization Address City/[facility] Code Phon e Number POWERCHART documented in this encounter Visit Diagnoses Not on filedocumented in this encounter Additional Health Concerns Assessment Noted Time PHQ-9 Depression Total Score: 11 12/13/2014 9:50 AM CD T documented as of this encounter
--- OUTSIDE RECORDS SUMMARY | 2022-07-29 08:31 | XMS_ITS | Encounter Summary ---
:1985 Author Organization [facility] Address [address] [place] [address] Care Team Providers Name Role Phone Unavailable Primary Care Provider Unavailable Encounter Details Date Type Department Care Team Description 03/05/2015 Hospital Encounter HX [facility] Jono Freedman M.D. [address] [place] [address] 021 Social History Tobacco Use Types Packs/Day [...] How often do you attend hoahaoism or gnosticist More than 4 time s [...] Zavala M.D. - 03/05/2015 11:30 AM CDT [id number] CHIEF COMPLAINT/REASON FOR VISIT Throat infection. HISTORY OF PRESENT ILLNESS Puneet is a 29-year-old who comes in to see me with a 1-week history of a sore throat. She saw Dr. Alisha black in [place] on 02/27. A throat culture done was [...] left side. She saw Dr. Snyder in [place]. A CT scan suggested a left multiloculated peritonsillar abscess. She has not had a lot of problems with her tonsils previously. She does smoke less than a half a pack of cigarettes per day. She has not had throat infection of this nature previously. New patient questionnaire and medical history in [facility] reviewed. PAST MEDICAL/SURGICAL HISTORY PAST MEDICAL HISTORY: Include a history of migraines. PREVIOUS HEAD AND NECK SURGERIES: None indicated. FAMILY HISTORY Negative for bleeding disorders. ALLERGIES Penicillin. 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 Does not drink alcohol, but does smoke somewhat of less than a pack of cigarettes per day. SYSTEMS REVIEW Positive for headaches. Others are negative. MEDICATIONS Listed and reviewed in [facility]. PHYSICAL EXAMINATION She is afebrile. She does [...] Thelma Zavala M.D./robb cc: Parth Snyder M.D. [address] [address] Electronically Signed By: THELMA ZAVALA MD On: 03/05/2015 03:00 PM Source: [facility] MHSDOLBEYNMARGOT Document Id: [id number] documented in this encounter Miscellaneous Notes Telephone Encounter - Thelma Zavala M.D. - 03/11/2015 12:00 AM CDT [id number] Puneet is a 29-year-old who I saw [...] her if she has further problems. Thelma Zaavla M.D./robb Electronically Signed By: THELMA ZAVALA MD On: 03/11/2015 09:42 AM Source: [facility] MHSDOLBEYNONRADSYS Document Id: [id number] Telephone Encounter - Sarina Mark R.N. - [...] is she had any further concerns. Source: [facility] POWERCHART Document Id: [id number] Electronically signed by Roland [facility] Workman [id number] at 01/17/2017 7:14 PM CDT Miscellaneous - Thelma Zavala M.D. - 03/05/2015 12:10 PM CDT Ambulatory Patient Summary [facility] [address], [address] [place] [id number] Visit Information Name: PUNEET FRIED [facility] Number: [id number] Current Date: 03/05/2015 12:10:53 Physicians [...] day x 10 day(s) New Routed to [address] [address] EPINEPHrine (EpiPen Auto-Injector 0.3 mg injectable kit) [...] if you dont have one. Go to [email or web address] and click on Create Your Account. Then, follow the directions to complete the online form. Youll be asked for your [facility] number which you can find at the top of this document. Your Goals/Additional instructions: Source: [facility] POWERCHART Document Id: [id number] Miscellaneous - Thelma Zavala M.D. - 03/05/2015 12:10 PM CDT Ambulatory Discharge Medication List [facility] [address], [address] [place] [id number] Visit Information Name: PUNEET FRIED [facility] Number: [id number] Visit Date: 03/05/2015 12:10:51 Attending [...] day x 10 day(s) New Routed to [address] [address] EPINEPHrine (EpiPen Auto-Injector 0.3 mg injectable kit) [...] MD Signed On:05-MAR-2015 12:10:43 Additional Information: Source: [facility] POWERCHART Document Id: [id number] Miscellaneous - Mariaelena Dominguez, R.N. - 03/05/2015 11:36 AM CDT Adult Principal Automation Engineer Intake/History Adult Principal Automation Engineer Intake/History Entered On: 03/05/2015 11:40 CDT Performed On: 03/05/2015 11:36 CDT by MARIAELENA DOMINGUEZ major gifts director Chief Complaint : left peritonsillar abcess Temperature [...] Given By : Patient Languages : Kazakh Is Patient Female and [...] MARIAELENA DOMINGUEZ - 03/05/2015 11:36 CDT Source: [facility] Your Policy Manager Document Id: [id number] CDT!41 documented in this encounter Plan of [...]
--- OUTSIDE RECORDS SUMMARY | 2022-07-29 08:31 | XMS_ITS | Encounter Summary ---
:1985 Author Organization [facility] Address [address] [place] [address] Care Team Providers Name Role Phone Unavailable Primary Care Provider Unavailable Encounter Details Date Type Department Care Team Description 02/27/2015 Hospital En[facility] 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 Patient was also given a script for prednisone to help with the swelling. Ordered: OV Est Pt Level 3 - [address] - 15 min Orders: cephalexin, 500 mg = 1 cap(s), PO, 2xDay, x 10 day(s), # 20 cap(s), 0 Refill(s), Acute, Pharmacy: [facility] predniSONE, 40 mg = 2 tab(s), PO, Daily, x 5 day(s), # 10 tab(s), 0 Refill(s), Acute, Pharmacy: [facility] Electronically Signed By: LEONORA NATHNA MD On: 02/27/2015 08:25 AM Source: [facility] POWERCHART Document Id: [id number] documented in this encounter Miscellaneous Notes Miscellaneous - Roosevelt Rodriges L.PBrittaneyNBrittaney - 02/27/2015 1:00 PM CDT Quality Measures Quality Measures Entered On: 03/07/2015 13:00 CDT Performed On: 02/27/2015 13:00 CDT by ROOSEVELT RODRIGES LPN Depression PHQ-9 Score : 0 ROOSEVELT RODRIGES LPN - 03/07/2015 13:00 CDT Source[facility] Document Id: [id number] CDT!3 Miscellaneous - Leonora Farias M.D. - 02/27/2015 7:39 AM CDT Work Excuse 27 February 2015 PUNEET FRIED [address] [place] [phone] Dear PUNEET FRIED, You were examined in [...] date: 02/28/2015 Notes: _ Sincerely, LEONORA NATHAN [address] [id number] Electronic Signature Electronically Signed By: LEONORA NATHAN MD On: 27 February 2015 This document has images extracted. Source: [facility] Document Id: [id number] Electronically signed by Roland [facility] Pattern Perforating Machine Operator [id number] at 01/17/2017 7:14 PM CDT Miscellaneous - Leonora Farias M.D. - 02/27/2015 7:38 AM CDT Ambulatory Patient Summary [address] [facility] NEHEMIAH [place] [phone] Visit Information Name: PUNEET FRIED [facility] Number: [id number] Current Date: 02/27/2015 [...] x 10 day(s) New Routed to [facility] [address] [place] [address] EPINEPHrine (EpiPen Auto-Injector 0.3 mg injectable kit) [...] day x 5 day(s) New Routed to [facility] [address] SUMAtriptan (SUMAtriptan 50 mg oral tablet) 1 [...] if you dont have one. Go to [email or web address] and click on Create Your Account. Then, follow the directions to complete the online form. Youll be asked for your [facility] number which you can find at the top of this document. Your Goals/Additional instructions: Source: [facility] POWERCHART Document Id: [id number] Miscellaneous - Leonora Farias M.D. - 02/27/2015 7:38 AM CDT Ambulatory Discharge Medication List [address] [id number] Visit Information Name: PUNEET FRIED [facility] Number: [id number] Visit Date: 02/27/2015 [...] day x 10 day(s) New Routed to [address] [address] EPINEPHrine (EpiPen Auto-Injector 0.3 mg injectable kit) [...] day x 5 day(s) New Routed to [address] [address] SUMAtriptan (SUMAtriptan 50 mg oral tablet) 1 [...] MD Signed On:27-FEB-2015 07:38:18 Additional Information: Source: [facility] POWERCHART Document Id: [id number] Miscellaneous - Trace Khan, L.P.N. - 02/27/2015 7:10 AM CDT Adult Circle Beveler Intake/History Document Has Been Updated Adult Circle Beveler Intake/History Entered On: 02/27/2015 7:10 CDT Performed [...] Preferred Communication Mode : Verbal Languages : Wolof Is Patient Female and 13-50 no hysterectomy : Yes Status : Patient denies Are you ? : No [facility]ACE [facility] - 02/27/2015 7:10 CDT Subjective Pain Symptoms : No [facility] - 02/27/2015 7:10 CDT Dependent Habits Tobacco Use/Currently Using : Yes Tobacco Use/Advised to Quit : Yes Exposure to Tobacco Smoke : Patient smokes Smoking Status : Current every day smoker [facility] - 02/27/2015 7:10 CDT Tobacco Use Grid Type : Cigarettes Cigarette Use Packs/Day : 0.5 [facility] - 02/27/2015 7:10 CDT Alcohol Use : No [facility] - 02/27/2015 7:12 CDT Caffeine Use Grid Caffeine Use : Current Type : Coffee, Soft drinks Frequency : Occasionally [facility] - 02/27/2015 7:12 CDT [facility] - 02/27/2015 7:10 CDT Recreational Drug Use Grid Drug Use : None [facility] - 02/27/2015 7:10 CDT Source: [facility] GeospizaCHART Document Id: [id number] CDT!21 documented in this encounter Plan of Treatment Not on filedocumented as of this encounter Procedures Procedure Name Priority Date/Time Associated Diagnosis Comme nts RAPID STREP A Routine 02/27/2015 7:10 AM Results for this SCREEN CDT procedure are i n the results section. documented in this encounter Results (ABNORMAL) Rapid Strep A Screen (02/27/2015 7:10 AM CDT) [facility] gist Method Time Signature HXStrep A [...]
--- OUTSIDE RECORDS SUMMARY | 2022-07-29 08:31 | XMS_ITS | Encounter Summary ---
:1985 Author Organization [facility] Address [address] [place] [address] Care Team Providers Name Role Phone Unavailable Primary Care Provider Unavailable Encounter Details Date Type Department Care Team Description 12/10/2015 Hospital Encounter HX [facility] Renny Castro M.D. [address] [place], [place] [address] (Wo rk) Social History [...] How often do you attend jain or catholic More than 4 time s [...] Acuna M.D. - 12/10/2015 7:54 AM CDT [id number] CHIEF COMPLAINT/REASON FOR VISIT A 3-month history [...] ACUNA MD On: 12/11/2015 08:52 AM Source: [facility] MHSDOLBEYNONRADSYS Document Id: [id number] documented in this encounter Miscellaneous Notes Miscellaneous - Timbo Acuna M.D. - 12/10/2015 9:16 AM CDT Ambulatory Patient Summary [address] [id number] Visit Information Name: PUNEET CLAYTON [facility] Number: [id number] Current Date: 12/10/2015 09:16:05 Physicians [...] day x 14 day(s) [facility] [address] [place] [address] topiramate (topiramate 25 mg oral tablet) 2 [...] dont have one. Go to [email or web address] and click on Create Your Account. Then, follow the directions to complete the online form. Youll be asked for your [facility] number which you can find at the top of this document. Your Goals/Additional instructions: Source: [facility] POWERCHART Document Id: [id number] Miscellaneous - Timbo Acuna M.D. - 12/10/2015 9:16 AM CDT Ambulatory Discharge Medication List [address] [id number] Visit Information Name: PUNEET CLAYTON [facility] Number: [id number] Visit Date: 12/10/2015 09:16:04 Attending [...] day x 14 day(s) New Routed to [address] [address] topiramate (topiramate 25 mg oral tablet) 2 [...] Signed By: Signed On: Additional Information: Source: [facility] POWERCHART Document Id: [id number] Miscellaneous - Abimbola Perry L.P.N. - 12/10/2015 8:07 AM CDT Adult Cloud Software Engineer Intake/History Adult Cloud Software Engineer Intake/History Entered On: 12/10/2015 8:09 CDT Performed [...] 12/10/2015 8:07 CDT General Info Languages : Slovenian Is Patient Female and [...] PERRY LPN - 12/10/2015 8:07 CDT Source: [facility] Listen Up Document Id: [id number] CDT!43 documented in this encounter Plan of Treatment Not on filedocumented as of this encounter Visit Diagnoses Not on filedocumented in this encounter Additional Health Concerns Assessment Noted Time PHQ-9 Depression Total Score: 11 12/13/2014 9:50 AM CD T documented as of this encounter
--- OUTSIDE RECORDS SUMMARY | 2022-07-29 08:31 | XMS_ITS | Encounter Summary ---
:1985 Author Organization [facility] Address [address] [place] [address] Care Team Providers Name Role Phone Unavailable Primary Care Provider Unavailable Encounter Details Date Type Department Care Team Description 10/12/[address] [facility] Maureen Hooker, SUPERVISOR [employer], C.N.P., D. N.P. [address] [place] [address] (Wo rk) Social History Tobacco [...] How often do you attend confucianism or alevism More than 4 time s [...] Comments Blood Pressure 116/78 10/12/2016 8:36 AM AIRPLANE REFUELER Pulse 74 10/12/2016 8:36 AM AIRPLANE REFUELER Temperature - - Respiratory Rate 16 10/12/2016 8:36 AM AIRPLANE REFUELER Oxygen Saturation - - Inhaled Oxygen Concentration - - Weight - - Height 157 cm (5' 1.81) 10/12/2016 8:36 AM AIRPLANE REFUELER Body Mass Index - - documented in [...] discomfort, but has not tried anything else [id number] for symptoms. No fever or chills. No [...] Ordered: OV Est Pt Level 3 - [address] - 15 min Rapid Strep Confirmation 2. [...] C.N.P., D.N.P On: 10/12/2016 09:02 AM Source: [facility] POWERCHART Document Id: [id number] LANE REFUELER documented in this encounter Miscellaneous Notes Miscellaneous - Rylee Hooker APRN, C.N.P., D.N.P. - 10/13/2016 11:16 AM AIRPLANE REFUELER Results Notification Document Contains Addenda Addendum by CATRACHO NAZARIO PA-C on October 13, 2016 11:21 AIRPLANE REFUELER Discussed with patient and order for ENT was sent for patient. From: RYLEE HOOKER APRN CBrittaneyNJud, Priti.N.P Sent: 10/13/2016 11:16:43 AIRPLANE REFUELER Show up: 10/13/2016 11:11:00 AIRPLANE REFUELER Subject: Results Notification Patient was contact that [...] Name MBO POS Rapid Strep Confirmation Source: [facility] POWERCHART Document Id: [id number] LANE REFUELER Miscellaneous - Jude Cardona L.P.N. - 10/12/2016 8:36 AM CST Adult Systems Lead Intake/History Adult Systems Lead Intake/History Entered On: 10/12/2016 8:37 AIRPLANE REFUELER Performed On: 10/12/2016 8:36 AIRPLANE REFUELER by JUDE CARDONA LPN Intake Chief Complaint [...] inch(es)) JUDE CARDONA LPN - 10/12/2016 8:36 AIRPLANE REFUELER General Info Languages : Azeri Is Patient Female and 13-50 no hysterectomy : Yes Status : Patient denies Are you ? : No JUDE CARDONA LPN - 10/12/2016 8:36 AIRPLANE REFUELER Subjective Pain Symptoms : Yes WEST CARDONANADIA Purdy LPN - 10/12/2016 8:36 AIRPLANE REFUELER Pain Scale Pain Scale Verbal 0-10 : Open JUDE CARDONA JEANETTE 10/12/2016 8:36 AIRPLANE REFUELER Pain Pain Assessment Grid Pain 1 Location : Throat Laterality : Bilateral Intensity : 3 ELVIN JUDE R SAFE DEPOSIT ATTENDANT - 10/12/2016 8:36 AIRPLANE REFUELER Dependent Habits Exposure to Tobacco Smoke : Patient smokes Smoking Status : Current every day smoker Tobacco 2A : Yes Tobacco Use/Currently Using : Yes Tobacco Use/Last 30 Days : Yes Tobacco Use/Last 12 months : Yes Type : Cigarettes: Less than 20 per day Tobacco Use/Advised to Quit : Yes CARDONA JUDE Purdy LPN 10/12/2016 8:36 AIRPLANE REFUELER Caffeine Use Grid Caffeine Use : Current Type : Coffee, Soft drinks Frequency : Occasionally VENESSA CARDONASSNADIA Purdy LPN 10/12/2016 8:36 AIRPLANE REFUELER Recreational Drug Use Grid Drug Use : None CARDONAJUDE SAFE DEPOSIT ATTENDANT 10/12/2016 8:36 AIRPLANE REFUELER Source: [facility] [employer] Document Id: [id number] AIRPLANE REFUELER![address] REFU[address]ER documented in this encounter Plan of Treatment Not on filedocumented as of this encounter Procedures Procedure Name Priority Date/Time Associated Diagnosis Comme nts RAPID STREP A Routine 10/12/2016 8:15 AM Results for this SCREEN AIRPLANE REFUELER procedure are i n the results section. RAPID STREP A Routine 10/12/2016 8:15 AM Results for this SCREEN AIRPLANE REFUELER procedure are i n the results section. documented in this encounter Results (ABNORMAL) Rapid Strep A Screen (10/12/2016 8:15 AM AIRPLANE REFUELER) [facility] Method Time Signature HXRapid Strep (POSITIVE) POWERCHART Confirmation HXPre Pending POWERCHART HXFinal POS POWERCHART HXFinal [facility] [address] [facility] [address] Specimen Anatomical Collection Method Collection Time Receive d Time (Source) Location / / Volume Laterality Throat 10/12/2016 8:15 AM 02/20/201 7 8:15 AIRPLANE REFUELER AM AIRPLANE REFUELER Rylee Hooker APRN C.N.P., D.N.P. LAB MICROBIOLOGY - GENERAL ORDERABLES Performing Organization Address City/State/ZIP Code Phon e Number POWERCHART Rapid Strep A Screen (10/12/2016 8:15 AM AIRPLANE REFUELER) [facility] Method Time Signature HXStrep A POWERCHART Screen Rapid HXFinal Negative for POWERCHART Strep Group A by rapid screen. HXFinal Culture POWERCHART confirmation to follow. Specimen (Source) Anatomical Collection Method Collection Time Re ceived Time Location / / Volume Laterality Throat 10/12/2016 8:15 AM AIRPLANE REFUELER Marlyn Crocker APRN.N.P., D.N.P. LAB MICROBIOLOGY - GENERAL ORDERABLES Performing Organization Address City/[facility] Code Phon e Number POWERCHART documented in this encounter Visit Diagnoses Not on filedocumented in this encounter Additional Health Concerns Assessment Noted Time PHQ-9 Depression Total Score: 11 12/13/2014 9:50 AM CD T documented as of this encounter
--- OUTSIDE RECORDS SUMMARY | 2022-07-29 08:31 | XMS_ITS | Encounter Summary ---
:1985 Author Organization [facility] Address [address] [place] [address] Care Team Providers Name Role Phone Unavailable Primary Care Provider Unavailable Encounter Details Date Type Department Care Team Description 11/09/2016 [facility] Ashwin Bundy P.ACalistaCBrittaney [address] [place], [place] [phone] (Wo rk) Social History Tobacco Use Types [...] How often do you attend worship or hindu More than 4 time s [...] convenient for you! From: PUNEET CLAYTON To: [facility] (MANAGER SOCIAL MEDIA) Sent: 11/16/2016 11:13 a.m. CDT Subject: RE: [...] hour appointment. Please call the clinic in [place], talk with Tejal in [facility] to schedule! talk soon! Leonora Villaseñor Source: [facility] [employer] Document Id: [id number] Miscellaneous - Leonora Villaseñor, R.N. - 11/09/2016 [...] hour appointment. Please call the clinic in [place], talk with Tejal in [facility] to schedule! talk soon! Leonora Villaseñor Source: [facility] [employer] Document Id: [id number] documented in this encounter Plan of Treatment [...] Performed At Patho logist Time Signature Beta-HCG, 51396.0 <=4.9 IUL POWERCHART Quantitative, (H) S Comment: [...]
--- OUTSIDE RECORDS SUMMARY | 2022-07-29 08:31 | XMS_ITS | Encounter Summary ---
:1985 Author Organization [facility] Address [address] [place] [address] Care Team Providers Name Role Phone Unavailable Primary Care Provider Unavailable Encounter Details Date Type Department Care Team Description 02/15/2016 Hospital Encounter HX [facility] Renny Castro M.D. [address] [place], [place] [address] (Wo rk) Social History [...] How often do you attend christian or adventist More than 4 time s [...] Acuna M.D. - 02/15/2016 8:56 AM CDT [id number] CHIEF COMPLAINT/REASON FOR VISIT Sore throat. HISTORY [...] ACUNA MD On: 02/18/2016 05:30 PM Source: [facility] MHSDOLBEYNONRADSYS Document Id: [id number] documented in this encounter Miscellaneous Notes Miscellaneous - Timbo Acuna M.D. - 02/15/2016 10:25 AM CDT Work Excuse February 15, 2016 PUNEET CLAYTON [address] [facility] [id number] Dear PUNEET CLAYTON, You were examined in [...] 02/16/2016 Notes: _ Sincerely, TIMBO ACUNA [address] [place] [address] Electronic Signature Electronically Signed By: TIMBO ACUNA MD On: February 15, 2016 This document has images extracted. Source: [facility] POWERCHART Document Id: [id number] Electronically signed by Roland [facility] Professional Wrestler [id number] at 01/16/2017 7:03 PM CDT Miscellaneous - Craig Tolentino, L.P.N. - 02/15/2016 9:21 AM CDT Adult Tobacco Curer Intake/History Adult Tobacco Curer Intake/History Entered On: 02/15/2016 9:24 CDT Performed [...] 2 inch(es), 62 inch(es)) CRAIG TOLENTINO [facility] - 02/15/2016 9:21 CDT General Info Information Given By : Patient Preferred Communication Mode : Verbal Languages : Finnish Is Patient Female and 13-50 no hysterectomy : Yes Status : Patient denies Are you ? : No CRAIG TOLENTINO [facility] - 02/15/2016 9:21 CDT Subjective Pain Symptoms : Yes CRAIG TOLENTINO [facility] - 02/15/2016 9:21 CDT Pain Scale Pain Scale Verbal 0-10 : Open CRAIG TOLENTINO [facility] - 02/15/2016 9:21 CDT Pain Pain Assessment Grid Pain 1 Location : Throat Intensity : 8 CRAIG TOLENTINO [facility] - 02/15/2016 9:21 CDT Dependent Habits Exposure to Tobacco Smoke : Patient smokes Smoking Status : Current every day smoker Tobacco 2A : Yes Tobacco Use/Currently Using : Yes Tobacco Use/Last 30 Days : Yes Tobacco Use/Last 12 months : Yes Type : Cigarettes: Less than 20 per day Tobacco Use/Advised to Quit : Yes Alcohol Use : No CRAIG TOLENTINO [facility] - 02/15/2016 9:21 CDT Caffeine Use Grid Caffeine Use : Current Type : Coffee, Soft drinks Frequency : Occasionally CRAIG TOLENTINO [facility] - 02/15/2016 9:21 CDT Recreational Drug Use Grid Drug Use : None CRAIG TOLENTINO [facility] - 02/15/2016 9:21 CDT [facility]: [facility] Document Id: [id number] CDT!49 documented in this encounter Plan of Treatment Not on filedocumented as of this encounter Procedures Procedure Name Priority Date/Time Associated Diagnosis Comme nts RAPID STREP A Routine 02/15/2016 9:27 AM Results for this SCREEN CDT procedure are i n the results section. documented in this encounter Results (ABNORMAL) Rapid Strep A Screen (02/15/2016 9:27 AM CDT) [facility] gist Method Time Signature HXStrep A (POSITIVE) [...]
--- OUTSIDE RECORDS SUMMARY | 2022-07-29 08:31 | XMS_ITS | Encounter Summary ---
:1985 Author Organization [facility] Address [address] [place] [address] Care Team Providers Name Role Phone Unavailable Primary Care Provider Unavailable Encounter Details Date Type Department Care Team Description 10/29/2016 Hospital Encounter HX [facility] Maureen Hooker, DAY WORKER, C.N.P., D. N.P. [address] [place] [address] (Wo rk) Social History Tobacco [...] How often do you attend muslim or hoahaoism More than 4 time s [...] Comments Blood Pressure 144/90 10/29/2016 9:32 AM COLORING ROOM MAN Pulse 104 10/29/2016 9:32 AM COLORING ROOM MAN Temperature - - Respiratory Rate 20 10/29/2016 9:28 AM COLORING ROOM MAN Oxygen Saturation - - Inhaled Oxygen Concentration - - Weight 149 kg (329 lb 5.9 oz) 10/29/2016 9:28 AM COLORING ROOM MAN Height 157 cm (5' 1.81) 10/29/2016 9:32 AM COLORING ROOM MAN Body Mass Index 60.61 10/29/2016 9:28 AM COLORING ROOM MAN documented in this encounter Medications at Time [...] Panel OV Est Pt Level 4 - 12426 - 25 min 2. Missed Menses test is POSITIVE today. She was advised to start a vitamin today and follow up with her OBGYN soon for her first ultrasound. Ordered: OV Est Pt Level 4 - 65107 - 25 min 3. Headache Migraine Tylenol for migraines. We will also trial a 2-week course of an antihistamine and flonase nasal spray for possible sinus headaches. Ordered: OV Est Pt Level 4 - 73001 - 25 min Sinusitis Allergic See #2. Ordered: fluticasone nasal, 2 spray(s), Nostrils(Both), Daily, allergies, # 16 gm, 4 Refill(s), Maintenance,Pharmacy: [facility] loratadine, 10 mg = 1 tab(s), PO, Daily, x 30 day(s), # 30 tab(s), 11 Refill(s), Acute, over the counter medication (Rx) OV Est Pt Level 4 - 63725 - 25 min Patient was instructed to [...] C.N.P., D.N.P On: 10/29/2016 12:26 PM Source: [facility] POWERCHART Document Id: [id number] RING ROOM MAN documented in this encounter Miscellaneous Notes Miscellaneous - Rylee Hooker APRN, C.N.P., Priti.N.P. - 10/29/2016 10:07 AM COLORING ROOM MAN Ambulatory Patient Summary [address] [place] [id number] Visit Information Name: PUNEET CLAYTON [facility] Number: [id number] Current Date: 10/29/2016 10:07:20 [...] nasal (Flonase 50 mcg/inh nasal spray) 2 [place](s), Nostrils(Both), once a day allergies New Routed to [address] [id number] furosemide (furosemide 20 mg oral tablet) 1 Tablet(s), Oral, once a day swelling New Routed to [facility] [address] [place] [address] ibuprofen (ibuprofen 400 mg oral tablet) 1 Tablet(s), Oral, every 4 hours as needed for Pain / FeverTake with food loratadine (Claritin 10 mg oral tablet) 1 Tablet(s), Oral, once a day x 30 day(s) New rizatriptan (Maxalt-COUNSELOR DORMITORY 10 mg oral tablet, disintegrating) 1 Tablet(s), Oral, as directed as needed for Migraine headache Take 1 tablet at onset of headache. Repeat after two hours if needed. New Routed to [address] [address] Stop Taking the Following Medications: SUMAtriptan (Imitrex [...] Appointments Date Time Location Provider 11/05/2016 12:45 [facility] ENT Jimmie CERON, Venu Gomez Attention: [...] if you dont have one. Go to [email or web address] and click on Create Your Account. Then, follow the directions to complete the online form. Youll be asked for your [facility] number which you can find at the top of this document. Your Goals/Additional instructions: Source: [facility] POWERCHART Document Id: [id number] RING ROOM MAN Miscellaneous - Rylee Hooker APRN C.N.P., D.N.P. - 10/29/2016 10:07 AM COLORING ROOM MAN Ambulatory Discharge Medication List [address] [place] [id number] Visit Information Name: PUNEET CLAYTON [facility] Number: [id number] Current Date: 10/29/2016 10:07:19 [...] nasal (Flonase 50 mcg/inh nasal spray) 2 [place](s), Nostrils(Both), once a day allergies New Routed to [address] [address] furosemide (furosemide 20 mg oral tablet) 1 Tablet(s), Oral, once a day swelling New Routed to [address] [id number] ibuprofen (ibuprofen 400 mg oral tablet) 1 Tablet(s), Oral, every 4 hours as needed for Pain / FeverTake with food loratadine (Claritin 10 mg oral tablet) 1 Tablet(s), Oral, once a day x 30 day(s) New rizatriptan (Maxalt-COUNSELOR DORMITORY 10 mg oral tablet, disintegrating) 1 Tablet(s), Oral, as directed as needed for Migraine headache Take 1 tablet at onset of headache. Repeat after two hours if needed. New Routed to [address] [id number] Stop Taking the Following Medications: SUMAtriptan (Imitrex [...] D.N.P Signed On:29-OCT-2016 10:07:14 Additional Information: Source: [facility] ZafinCHART Document Id: [id number] RING ROOM MAN Leilani - Craig Tolentino L.P.N. - 10/29/2016 9:32 AM CST Ambulatory Vitals Height Weight Ambulatory Vitals Height Weight Entered On: 10/29/2016 9:33 COLORING ROOM MAN Performed On: 10/29/2016 9:32 COLORING ROOM MAN by CRAIG TOLENTINO LPN Vitals/Ht/Wt Peripheral Pulse Rate : 104 /min (HI) Systolic Blood Pressure : 144 mmHg (HI) Diastolic Blood Pressure : 90 mmHg (HI) NIBP Mean : 108 mmHg BP Location : Left upper extremity Blood Pressure Cuff Size : Large Height : 157 cm(Converted to: 5 ft 2 inch(es), 62 inch(es)) CRAIG TOLENTINO LPN - 10/29/2016 9:32 COLORING ROOM MAN Source: [facility] Drop Development Document Id: [id number] COLORING ROOM MAN!9 RING ROOM MAN Leilani - Craig Tolentino L.P.N. - 10/29/2016 9:28 AM CST Adult Echo Vasc Tech Intake/History Adult Echo Vasc Tech Intake/History Entered On: 10/29/2016 9:31 COLORING ROOM MAN Performed On: 10/29/2016 9:28 COLORING ROOM MAN by CRAIG TOLENTINO LPN Intake Chief Complaint [...] 60.61 kg/m2 CRAIG TOLENTINO LPN 10/29/2016 9:28 COLORING ROOM MAN General Info Information Given By : Patient Preferred Communication Mode : Verbal Languages : Montserratian Is Patient Female and 13-50 no hysterectomy : Yes Status : Possible unconfirmed Are you ? : No CRAIG TOLENTINO LPN 10/29/2016 9:28 COLORING ROOM MAN Subjective Pain Symptoms : Yes CRAIG TOLENTINO LPN 10/29/2016 9:28 COLORING ROOM MAN Pain Scale Pain Scale Verbal 0-10 : Open CRAIG TOLENTINO LPN 10/29/2016 9:28 COLORING ROOM MAN Pain Pain Assessment Grid Pain 1 Location : Head Intensity : 5 CRAIG TOLENTINO LPN 10/29/2016 9:28 COLORING ROOM MAN Dependent Habits Exposure to Tobacco Smoke : Patient smokes Smoking Status : Current every day smoker Tobacco 2A : Yes Tobacco Use/Currently Using : Yes Tobacco Use/Last 30 Days : Yes Tobacco Use/Last 12 months : Yes Type : Cigarettes: Less than 20 per day Tobacco Use/Advised to Quit : Yes Alcohol Use : No CRAIG TOLENTINO LPN 10/29/2016 9:28 COLORING ROOM MAN Caffeine Use Grid Caffeine Use : Current Type : Coffee, Soft drinks Frequency : Occasionally CRAIG TOLENTINO LPN - 10/29/2016 9:28 COLORING ROOM MAN Recreational Drug Use Grid Drug Use : None CRAIG TOLENTINO LPN 10/29/2016 9:28 COLORING ROOM MAN [facility] Document Id: [id number] COLORING ROOM MAN!55 RING ROOM MAN documented in this encounter Plan of Treatment Not on filedocumented as of this encounter Procedures Procedure Name Priority Date/Time Associated Diagnosis Comme nts BASIC METABOLIC Routine 10/29/2016 10:16 AM Resul ts for this PANEL, S/P COLORING ROOM MAN procedure are i n the results section. TEST, U Routine 10/29/2016 10:00 AM Res ults for this COLORING ROOM MAN procedure are i n the results section. documented in this encounter Results BMP (Basic Metabolic Panel) (10/29/2016 10:16 AM COLORING ROOM MAN) P athologist Signature Sodium, S 140 135 [...] POWERCHART MMOLL HXeGFR (MDRD) >60 >=60 POWERCHART [id number] eGFR >60 >=60 POWERCHART Black/ [id number] Ukrainian Glucose 125 70 - 139 POWERCHART MGDL Specimen (Source) Anatomical Collection Method Collection Time Re ceived Time Location / / Volume Laterality Blood 10/29/2016 10:16 AM COLORING ROOM MAN Rylee Hooker APRN C.N.P., D.N.P. LAB BLOOD ADD-ON Performing Organization Address City/State/ZIP Code Phon e Number POWERCHART Test, Qualitative, Urine (10/29/2016 10:00 AM COLORING ROOM MAN) Patholo gist Method Time Signature HXBeta-hCG Positive POWERCHART Qualitative Urine Specimen (Source) Anatomical Collection Method Collection Time Re ceived Time Location / / Volume Laterality Urine 10/29/2016 10:00 AM COLORING ROOM MAN Rylee Hooker APRN, C.N.P., D.N.P. LAB URINE ORDERAB LES Performing Organization Address City/State/ZIP Code Phon e Number POWERCHART documented in this encounter Visit Diagnoses Not on filedocumented in this encounter Additional Health Concerns Assessment Noted Time PHQ-9 Depression Total Score: 11 12/13/2014 9:50 AM CD T documented as of this encounter
--- OUTSIDE RECORDS SUMMARY | 2022-07-29 08:31 | XMS_ITS | Encounter Summary ---
:1985 Author Organization [facility] Address [address] [place] [address] Care Team Providers Name Role Phone Unavailable Primary Care Provider Unavailable Encounter Details Date Type Department Care Team Description 01/15/2016 Hospital Encounter [facility]X [facility] Kyle Colmenares M .D., M.P.H. [address] [place], [place] [phone] (Wo rk) Social History [...] How often do you attend denominational or judaism More than 4 time s [...] HINDS RN On: 01/15/2016 10:21 AM Source: [facility] POWERCHART Document Id: [id number] documented in this encounter Plan of Treatment [...] M.Tuberculos-M piyush HXTB Ag 0.00 INTUML POWERCHART [facility]-[place] Comment: ADDITIONAL INFORMATIO N This is a [...] Test Performed by: [facility] [place] [id number] Principal Security Architect: Rubio Marshall II, M.D., Ph.D. Specimen (Source) Anatomical Collection Method Collection Time Re ceived Time Location / / Volume Laterality Blood 01/15/2016 10:39 AM CDT Kyle Coleman M.D., M.P.H. LAB MICROBIOLOGY - BLOOD O BOBBY Performing Organization Address [facility] Phon e Number POWERCHART Mumps Ab, IgG (01/15/2016 10:39 AM CDT) P athologist Signature Mumps Ab, IgG, Positive POWERCHART S Comment: Results suggest response to immunization or prior exposure to the virus. REFERENCE VALUE------ Vaccinated: Positive (>=1.1 AI) Unvaccinated: Negative (<=0.8 AI) Mumps Ab, IgG, S 3.3 POWERCHART Comment: Test Performed by: [place] [address] Principal Security Architect: Rubio Marshall II MTomeka, Ph.D. Specimen (Source) Anatomical Collection Method Collection Time Re ceived Time Location / / Volume Laterality Blood 01/15/2016 10:39 AM CDT Kyle Coleman M.D., M.P.HBrittaney LAB MICROBIOLOGY - BLOOD O BOBBY Performing Organization Address [facility] Phon e Number POWERCHART Rubella Antibodies, IgG (01/15/2016 10:39 AM CDT) P athologist Signature HX Rubella Positive POWERCHART [facility] Comment: Results suggest response to immunization or prior exposure to the virus. REFERENCE VALUE------ Vaccinated: Positive (>=1.0 AI) Unvaccinated: Negative (<=0.7 AI) Rubella IgG Antibody Index 1.2 [facility] Comment: Test Performed by: [place] [id number] Principal Security Architect: Rubio Marshall II MTomeka, Ph.D. Specimen (Source) Anatomical Collection Method Collection Time Re ceived Time Location / / Volume Laterality Blood 01/15/2016 10:39 AM CDT Kyle Coleman M.D., M.P.H. LAB MICROBIOLOGY - BLOOD O BOBBY Performing Organization Address [facility] Phon e Number POWERCHART Measles (Rubeola) Ab, IgG (01/15/2016 10:39 AM CDT) P athologist Signature Measles Positive POWERCHART ([place]) Ab, IgG, S Comment: Results suggest response to immunization or prior exposure to the virus. REFERENCE VALUE------ Vaccinated: Positive (>=1.1 AI) Unvaccinated: Negative (<=0.8 AI) Measles IgG Antibody Index 1.4 [facility] Comment: Test Performed by: [place] [id number] Principal Security Architect: Rubio Marshall II MTomeka, Ph.D. Specimen (Source) Anatomical Collection Method Collection Time Re ceived Time Location / / Volume Laterality Blood 01/15/2016 10:39 AM CDT Kyle Coleman M.D., M.P.H. LAB MICROBIOLOGY - BLOOD O BOBBY Performing Organization Address [facility] Phon e Number POWERCHART Varicella-Zoster Antibody, IgG (01/15/2016 10:39 AM CDT) P athologist Signature Varicella-Zost Negative POWERCHART er Ab, IgG, S Comment: REFERENCE VALUE------ Vaccinated: Positive (>=1.1 AI) Unvaccinated: Negative (<=0.8 AI) Varicella-Zoster Ab, IgG, S 0.2 PO WERCHART Comment: Test Performed by: [place] [address] Principal Security Architect: Rubio Marshall II, M.D., Ph.D. Specimen (Source) [...]
--- OUTSIDE RECORDS SUMMARY | 2022-07-29 08:31 | XMS_ITS | Encounter Summary ---
:1985 Author Organization [facility] Address [address] [place] [address] Care Team Providers Name Role Phone Unavailable Primary Care Provider Unavailable Encounter Details Date Type Department Care Team Description 03/20/2015 Hospital Encounter HX [facility] Barbra Yancey M.D. [address] [place] [phone] (Wo rk) Social History Tobacco Use [...] How often do you attend catholic or christian More than 4 time s [...] Summary-Paper Based CODING DATE: 03/28/2015 FINAL [place] [facility] STATUS: * Discharged [...] ZENG Date Saved: 03/28/2015 07:42 am Source: [employer] POWERCHART Document Id: [id number] documented in this encounter Plan of Treatment Not on filedocumented as of this encounter Visit Diagnoses Not on filedocumented in this encounter Additional Health Concerns Assessment Noted Time PHQ-9 Depression Total Score: 11 12/13/2014 9:50 AM CD T documented as of this encounter
--- OUTSIDE RECORDS SUMMARY | 2022-07-29 08:31 | XMS_ITS | Encounter Summary ---
:1985 Author Organization [facility] Address [address] [place] [address] Care Team Providers Name Role Phone Unavailable Primary Care Provider Unavailable Encounter Details Date Type Department Care Team Description 01/15/2016 Hospital Encounter HX [facility] Kyle Colmenares M .D., M.P.H. [address] [place], [place] [phone] (Wo rk) Social History [...] How often do you attend sabianism or taoist More than 4 time s [...] 10:12 CDT Source: [facility] POWERCHART Document Id: [id number]!3 documented in this encounter Plan of Treatment Not on filedocumented as of this encounter Visit Diagnoses Not on filedocumented in this encounter Additional Health Concerns Assessment Noted Time PHQ-9 Depression Total Score: 11 12/13/2014 9:50 AM CD T documented as of this encounter
--- OUTSIDE RECORDS SUMMARY | 2022-07-29 08:32 | XMS_ITS | Encounter Summary ---
:1985 Author Organization [facility] Address [address] [place] [address] Care Team Providers Name Role Phone Unavailable Primary Care Provider Unavailable Encounter Details Date Type Department Care Team Description 01/25/2013 Hospital Encounter HX [facility] Renuka Choi M.D. [address] [place] [phone] (Wo rk) Social History Tobacco [...] How often do you attend adventist or islam More than 4 time s [...] Borges M.D. - 01/25/2013 9:45 AM CDT [id number] SUBJECTIVE: Carol Juarez is an 27 year [...] line 8-2-10, 06/11/10 Alcohol Use: Yes rare Correspondence Section Supervisor History: No history of STDs. PAP NIL [...] to procedure - YES. 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 Will check a TVUS to confirm proper placement PE: Reviewed health maintenance including diet, regular exercise and periodic exams. Source: [facility] [email or web address] Document Id: [id number] Electronically signed by Conversion, [facility] Social Psychologist [id number] at 01/18/2017 6:08 PM CDT documented in this encounter Miscellaneous Notes Miscellaneous - Nyasia Borges M.D. - 01/25/2013 9:45 AM CDT [id number] January 30, 2013 Carol Juarez [address] [place] [phone] Your doctor has requested to have you return for a thryoid, glucose, and cholesterol test at this time. You may call our office at [phone] in Obstetrics/Gynecology to schedule an appointment. Please ask to schedule a LAB APPOINTMENT Please disregard this notice if you already have had this lab repeated or have already made an appointment. Sincerely, Lory Hardy Source: [facility] [email or web address] Document Id: [id number] Electronically signed by Conversion, [facility] Social Psychologist [id number] at 01/18/2017 6:08 PM CDT documented in [...] Volume Laterality 01/26/2013 2:02 PM CDT Narrative [facility] - 10/23/19 14 9:59 PM SUPERVISOR DISPLAY FABRICATION Negative for C. trachomatis rRNA by driller's offsider mediated amplification. A negative result by driller's offsider media pipe amplification does not preclude the presence of C. trachomatis infection bec ause results are dependent on proper and adequate collection, absence of inhi bitors, and sufficient rRNA to be detected. Historical Provider LAB HISTORICAL ORDERS Performing Organization Address City/State/ZIP Code Phon e Number [facility] HX SN - SPEC - DESCRIPTION (01/26/2013 2:02 PM CDT) P athologist Signature HXSPECIMAN [facility] Specimen (Source) Anatomical Collection Method Collection Time Re ceived Time Location / / Volume Laterality 01/26/2013 2:02 PM CDT Historical Provider LAB HISTORICAL ORDERS Performing Organization Address City/State/ZIP Code Phon e Number [facility] Chlamydia trachomatis Amplified RNA (01/26/2013 2:02 PM CDT) Specimen (Source) Anatomical Collection Method Collection Time Re ceived Time Location / / Volume Laterality 01/26/2013 2:02 PM CDT Narrative [facility] - 10/23/19 14 9:59 PM SUPERVISOR DISPLAY FABRICATION Negative for N. gonorrhoeae rRNA by driller's offsider mediated amplification. A negative result by driller's offsider media pipe amplification does not preclude the presence of N. gonorrhoeae infection bec ause results are dependent on proper and adequate collection, absence of inhi bitors, and sufficient rRNA to be detected. Historical Provider LAB MICROBIOLOGY - GENERAL O RDERABLES Performing Organization Address City/State/ZIP Code Phon e Number [facility] HX SN - SPEC - DESCRIPTION (01/26/2013 2:02 PM CDT) P athologist Signature HXSPECIMAN [facility] Specimen (Source) Anatomical Collection Method Collection Time Re ceived Time Location / / Volume Laterality 01/26/2013 2:02 PM CDT Historical Provider LAB HISTORICAL ORDERS Performing Organization Address City/State/ZIP Code Phon e Number [facility] documented in this encounter Visit Diagnoses Not on filedocumented in this encounter
--- OUTSIDE RECORDS SUMMARY | 2022-07-29 08:32 | XMS_ITS | Encounter Summary ---
:1985 Author Organization [facility] Address [address] [place] [address] Care Team Providers Name Role Phone Unavailable Primary Care Provider Unavailable Encounter Details Date Type Department Care Team Description 03/15/2014 Hospital Encounter [facility]X [facility] Jessica Bear M.D. [address] [place], [place] [phone] (Wo rk) Social History [...] How often do you attend druze or faith More than 4 time s [...] Results Letter 16 March 2014 PUNEET FRIED [address] [place] [id number] Dear PUNEET FRIED, I am pleased to [...] 03/15/2014 150 - 450 Sincerely, MICHELLE BEAR [address] [place] [phone] Electronic Signature Electronically Signed By: MICHELLE BEAR MD On: 16 March 2014 This document has images extracted. Source: [facility] POWERCHART Document Id: [id number] Electronically signed by Conversion, [facility] Costumer Assistant [id number] at 01/19/2017 1:49 PM CDT documented in [...] Erythrocytes 5.16 (H) 3.90 - POWERCHART 5.03 [id number] HX RDW 13.3 11.9 - POWERCHART 15.5 [...] S MGDL eGFR >60 >=60 POWERCHART Black/ [id number] Filipino HXeGFR (MDRD) >60 >=60 POWERCHART [id number] Comment: Results are in mL/min/1.73m CKD Stage [...]
--- OUTSIDE RECORDS SUMMARY | 2022-07-29 08:32 | XMS_ITS | Encounter Summary ---
:1985 Author Organization [facility] Address [address] [place] [address] Care Team Providers Name Role Phone Unavailable Primary Care Provider Unavailable Encounter Details Date Type Department Care Team Description 03/13/2014 Hospital Encounter [facility] Michelle Bear M.D. [address] [place] [address] (Wo rk) Social History Tobacco Use Types [...] How often do you attend methodist or hoahaoism More than 4 time s [...] Bear M.D. - 03/13/2014 1:30 PM CDT [id number] A 28-year-old female is here to establish care. She lives in [place] with the father of her son, who is 6 years old. She states they have been together for about 8 years. They are thinking about perhaps another this fall. She delivered here in [place] [address] Kinney. Her [...] I would like to refer her to [place], to the bariatric program. I believe that [...] her psychiatry and psychology evaluations. Michelle Bear M.D./orbb Electronically Signed By: MICHELLE BEAR MD On: 03/14/2014 12:48 PM Source: [facility] MHSDOLBEYNONRADSYS Document Id: [id number] documented in this encounter Miscellaneous Notes Miscellaneous - Nicolette Moise, JOSEFA, C.N.P. - 05/28/2014 2:00 PM CDT Ambulatory Patient Summary [facility] [address], [address] [place], [place] [phone] Visit Information Name: PUNEET FRIED [facility] Number: [id number] Current Date: 05/28/2014 14:00:54 Physicians [...] appointment detail needed. Your Goals/Additional instructions: Source: [facility] POWERCHART Document Id: [id number] Miscellaneous - Nicolette Moise APRN, C.N.P. - 05/28/2014 2:00 PM CDT Ambulatory Discharge Medication List [facility] [address] [place], [place] [phone] Visit Information Name: PUNEET FRIED [facility] Number: [id number] Visit Date: 05/28/2014 14:00:53 Attending [...] Signed By: Signed On: Additional Information: Source: [facility] POWERCHART Document Id: [id number] Miscellaneous - Jory Coppola L.P.N. - 03/14/2014 [...] COPPOLA LPN - 03/14/2014 8:25 CDT Source: [employer] Document Id: [id number] CDT!13 Miscellaneous - oJry Coppola L.P.N. - 03/13/2014 1:50 PM CDT Adult Television Technician Intake/History Adult Television Technician Intake/History Entered On: 03/13/2014 13:53 CDT Performed [...] COPPOLA LPN - 03/13/2014 13:50 CDT Source: [employer] Document Id: [id number] CDT!37 Miscellaneous - Jory Coppola L.P.N. - [...] Never Audit Phase 1 Score : 1 NAATSTEPHANIEY Esther JEANETTE - 03/13/2014 13:49 CDT Psychosocial Domestic Abuse Concerns : None Zoroastrian Preference : No qualifying data available. JORY COPPOLA LPN - 03/13/2014 13:49 CDT Advance Directive Advanced Directives : No JORY COPPOLA LPN - 03/13/2014 13:49 CDT Educ Needs Learning Style Preference Adult Grid Patient : None Family : None JORY COPPOLA LPN - 03/13/2014 13:49 CDT [facility]: [facility] Document Id: [id number] CDT!40 documented in this encounter Plan of Treatment Not on filedocumented as of this encounter Visit Diagnoses Not on filedocumented in this encounter Additional Health Concerns Assessment Noted Time PHQ-9 Depression Total Score: 11 03/14/2014 8:25 AM CD T documented as of this encounter
--- OUTSIDE RECORDS SUMMARY | 2022-07-29 08:32 | XMS_ITS | Encounter Summary ---
:1985 Author Organization [facility] Address [address] [place] [address] Care Team Providers Name Role Phone Unavailable Primary Care Provider Unavailable Encounter Details Date Type Department Care Team Description 08/28/2011 Hospital Encounter HX NO MAPPING Nelson Bernal M.D. [address] [place] [phone] (Wo rk) Social History Tobacco [...] How often do you attend amish or jewish More than 4 time s [...]
--- OUTSIDE RECORDS SUMMARY | 2022-07-29 08:32 | XMS_ITS | Encounter Summary ---
:1985 Author Organization [facility] Address [address] [place] [address] Care Team Providers Name Role Phone Unavailable Primary Care Provider Unavailable Encounter Details Date Type Department Care Team Description 12/13/2014 Hospital Encounter HX [facility] Maureen Berman P.A.-C., M.S. [address] [place] [phone] (Wo rk) Social History Tobacco Use Types [...] How often do you attend jainism or confucianism More than 4 time s [...] P.A.-C., M.S. - 12/13/2014 9:40 AM CDT [id number] CHIEF COMPLAINT/REASON FOR VISIT Recheck headaches. HISTORY [...] MONACO PA-C On: 12/20/2014 09:46 AM Source: [facility] MHSDOLBEYNONRADSYS Document Id: [id number] documented in this encounter Nursing Notes Alison [...] open cavity, apply OIL OF CLOVES (available hvwv-atm-woywfrr in drug stores) directly to the tooth to reduce pain. Some pharmacies carry an nirz-gip-jliqphw toothache kit. This contains a paste, which [...] tooth ?? Difficulty swallowing or breathing ?? [phone], [place] [address]. All rights reserved. This information is not intended as a substitute for professional medical care. Always follow your healthcare professional's instructions. This document has images extracted. Please consider using [email or web address] for all your patient education needs. Source: [facility] POWERCHART Document Id: [id number] Glen Graf L.P.N. - 12/13/2014 10:15 AM [...] GRAF LPN - 12/13/2014 10:15 CDT Source: [facility] POWERCHART Document Id: [id number] CDT!8 documented in this encounter Miscellaneous Notes [...] 3 Substitutions Allowed Route To Pharmacy - [facility] [place][note 2] Other (See Comment) Already done. Signed by [...] 3 Substitutions Allowed Route To Pharmacy - [facility] [place] [address] Tablet form not available. Please switch to capsule Source: [facility] POWERCHART Document Id: [id number] Miscellaneous - Alison Berman P.A.-C., M.S. - 12/13/2014 10:41 AM CDT Ambulatory Patient Summary [facility] [address], [address] Marko Fonseca [place] [id number] Visit Information Name: PUNEET FRIED [facility] Number: [id number] Current Date: 12/13/2014 10:41:40 [...] hours x 7 day(s) New Routed to [place] [address] [place] [id number] HYDROcodone-acetaminophen (Vicodin 5 mg-300 mg oral tablet) [...] after two hours if needed. Routed to [facility] [address] [place] [id number] venlafaxine (venlafaxine 37.5 mg oral tablet, extended release) 1 Tablet(s), Oral, once a day 1 tab daily x 1 week. Then increase to 2 tabs daily as tolerated. New Routed to [place] [address] [place] [id number] Stop Taking the Following Medications: amitriptyline (amitriptyline [...] open cavity, apply OIL OF CLOVES (available mcxn-jxl-uylmlzt in drug stores) directly to the tooth to reduce pain. Some pharmacies carry an ydjn-plp-rzfvbzx toothache kit. This contains a paste, which [...] tooth ?? Difficulty swallowing or breathing ?? [phone] [place] [address]. All rights reserved. This information is not intended as a substitute for professional medical care. Always follow your healthcare professional's instructions. Your Goals/Additional instructions: This document has images extracted. Please consider using [email or web address] for all your patient education needs. Source: [facility] POWERCHART Document Id: [id number] Miscellaneous - Alison Berman P.A.-C., M.S. - 12/13/2014 10:41 AM CDT Ambulatory Discharge Medication List [facility] [address], [address] [place], [place] [phone] Visit Information Name: PUNEET FRIED [facility] Number: [id number] Visit Date: 12/13/2014 10:41:39 [...] hours x 7 day(s) New Routed to [place] [address] [place] [phone] HYDROcodone-acetaminophen (Vicodin 5 mg-300 mg oral tablet) 1 Tablet(s), Oral, every 6 hours as needed for Pain No more than 4,000mg acetaminophen/24hrs New Routed to [place] ibuprofen (ibuprofen 200 mg oral tablet) See Instructions 3-4 tabs prn SUMAtriptan (SUMAtriptan 50 mg oral tablet) 1 Tablet(s), Oral, as directed as needed for Migraine headache Take 1 tablet at onset of headache. Repeat after two hours if needed. Routed to [place] [address] [place] [id number] venlafaxine (venlafaxine 37.5 mg oral tablet, extended release) 1 Tablet(s), Oral, once a day 1 tab daily x 1 week. Then increase to 2 tabs daily as tolerated. New Routed to [place] [address] [place] [id number] Stop Taking the Following Medications: amitriptyline (amitriptyline [...] PA-C Signed On:13-DEC-2014 10:41:02 Additional Information: Source: [facility] POWERCHART Document Id: [id number] Miscellaneous - Glen Graf L.P.N. - 12/13/2014 [...] GRAF LPN - 12/13/2014 9:50 CDT Source: [employer] Document Id: [id number] CDT!13 Miscellaneous - Glen Graf L.P.N. 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 Cathead Operator Intake/History Adult Cathead Operator Intake/History Entered On: 12/13/2014 9:50 CDT [...] Information Given By : Patient Languages : Thai Is Patient Female and [...] GLEN GRAF LPN 12/13/2014 9:48 CDT Source: [employer] Document Id: [id number] CDT!50 documented in this encounter Plan of Treatment Not on filedocumented as of this encounter Visit Diagnoses Not on filedocumented in this encounter Additional Health Concerns Assessment Noted Time PHQ-9 Depression Total Score: 11 12/13/2014 9:50 AM CD T documented as of this encounter
--- OUTSIDE RECORDS SUMMARY | 2022-07-29 08:32 | XMS_ITS | Encounter Summary ---
:1985 Author Organization [facility] Address [address] [place] [address] Care Team Providers Name Role Phone Unavailable Primary Care Provider Unavailable Encounter Details Date Type Department Care Team Description 05/10/2014 Hospital Encounter HX [facility] Oralia San O.D. Social History Tobacco Use [...] ROACH OD On: 05/10/2014 09:44 AM Source: [employer] POWERCHART Document Id: [id number] documented in this encounter Miscellaneous Notes Miscellaneous - Oralia Roach O.D. - 05/10/2014 9:11 AM CDT Ambulatory Patient Summary [facility] [address] [place], [place] [phone] Visit Information Name: PUNEET FRIED [facility] Number: [id number] Current Date: 05/10/2014 [...] appointment detail needed. Your Goals/Additional instructions: Source: [facility] POWERCHART Document Id: [id number] YS Duke - Oralia Roach O.D. - 05/10/2014 9:11 AM CDT Ambulatory Discharge Medication List [facility] [address], [address] [place], [place] [phone] Visit Information Name: PUNEET FRIED [facility] Number: [id number] Visit Date: 05/10/2014 [...] OD Signed On:10-MAY-2014 09:10:54 Additional Information: Source: [facility] POWERCHART Document Id: [id number] Leilani - Rakel Martinez C.O.ABrittaney - 05/10/2014 8:55 AM CDT Adult Measurement Supervisor Intake/History Adult Measurement Supervisor Intake/History Entered On: 05/10/2014 8:55 CDT Performed [...] RAKEL MARTINEZ - 05/10/2014 8:55 CDT Source: [facility] [employer] Document Id: [id number] CDT!29 documented in this encounter Plan of Treatment Not on filedocumented as of this encounter Visit Diagnoses Not on filedocumented in this encounter Additional Health Concerns Assessment Noted Time PHQ-9 Depression Total Score: 05/02/2014 9:45 AM CD T documented as of this encounter
--- OUTSIDE RECORDS SUMMARY | 2022-07-29 08:32 | XMS_ITS | Encounter Summary ---
:1985 Author Organization [facility] Address [address] [place] [address] Care Team Providers Name Role Phone Unavailable Primary Care Provider Unavailable Encounter Details Date Type Department Care Team Description 01/21/2012 Hospital Encounter HX [facility] RexLeonora mckeon M.D. [address] [place] [phone] (Wo rk) Social History Tobacco Use [...] How often do you attend worship or sikh More than 4 time s [...] Farias M.D. - 01/21/2012 12:00 AM CDT [id number] CHIEF COMPLAINT/REASON FOR VISIT Headache. HISTORY OF [...] has symmetric and coordinated finger tapping and ygtn-zw-xvmp rubbing. Strength is 5 out of 5 [...] NATHAN MD On: 01/26/2012 07:59 AM Source: [facility] MHSDOLBEYNONRADSYS Document Id: [id number] documented in this encounter Miscellaneous Notes Miscellaneous - Leonora Farias M.D. - 01/21/2012 9:53 AM CDT Ambulatory Depart Summary [address] [address] Visit Information Name: PUNEET RFIED Visit Date: 01/21/2012 09:53:11 Attending Provider: RUIZ [...] your provider for clarification. Additional Information: Source: [facility] POWERCHART Document Id: [id number] Miscellaneous - Leonora Farias M.D. - 01/21/2012 9:53 AM CDT Ambulatory Patient Summary [place] [phone] [place] [address] Visit Information Name: PUNEET FRIED Current Date: [...] No Appointments found Your Goals/Additional instructions: Source: [facility] POWERCHART Document Id: [id number] Miscellaneous - Bessy Herrera, LBrittaneyP.N. - 01/21/2012 9:21 AM CDT Adult Director Of Officiating Intake/History Adult Director Of Officiating Intake/History Entered On: 01/21/2012 9:28 CDT Performed [...] Preferred Communication Mode : Verbal Languages : Tanzanian BESSY HERRERA LPN, 01/21/2012 9:21 CDT Subjective [...] Status : Current every day smoker BESSY HRERERA LPN, 01/21/2012 9:21 CDT Tobacco Use Grid Type : Cigarettes Cigarette Use Packs/Day : 0.5 BESSY HERRERA LPN, 01/21/2012 9:21 CDT Alcohol Use : No BESSY HERRERA LPN, 01/21/2012 9:21 CDT Caffeine Use Grid Caffeine Use : Current Type : Coffee, Soft drinks Frequency : Daily BESSY HERRERA LPN, 01/21/2012 9:21 CDT Recreational Drug Use Grid Drug Use : None BESSY HRERERA LPN, 01/21/2012 9:21 CDT Allergy Allergies (Active) penicillins Estimated Onset Date: Unspecified ; Created By: GLEN ACOSTA; Reaction Status: Active ;Category: Drug ; Substance: penicillins ; Type: Allergy ; Updated By: GLEN ACOSTA; Reviewed Date: 01/12/2012 18:06 CDT Source: [employer] Document Id: [id number] documented in this encounter Plan of Treatment Not on filedocumented as of this encounter Visit Diagnoses Not on filedocumented in this encounter
--- OUTSIDE RECORDS SUMMARY | 2022-07-29 08:32 | XMS_ITS | Encounter Summary ---
:1985 Author Organization [facility] Address [address] [place] [address] Care Team Providers Name Role Phone Unavailable Primary Care Provider Unavailable Encounter Details Date Type Department Care Team Description 08/02/2013 Hospital Encounter HX NO MAPPING Berny Garcia M.D. [address] [place] [phone] (Wo rk) Social [...] How often do you attend confucianist or episcopalian More than 4 time s [...]
--- OUTSIDE RECORDS SUMMARY | 2022-07-29 08:32 | XMS_ITS | Encounter Summary ---
:1985 Author Organization [facility] Address [address] [place] [address] Care Team Providers Name Role Phone Unavailable [...] Magallanes, Ph.D. - 04/15/2012 12:00 AM CDT [id number] LETTER Carol Dowell Juarez [address] [place] [phone] April 15, 2012 Dear Carol: Our records [...] to keep this appointment, please call the [facility] [place] [facility] as soon as possible at or toll-free to reschedule or cancel. We look forward to hearing from you. Thank you, [facility] [place] Source: [facility] RWMCHXTRANSXRTFSYS Document Id: [id number] documented in this encounter Plan of Treatment Not on filedocumented as of this encounter Visit Diagnoses Not on filedocumented in this encounter
--- OUTSIDE RECORDS SUMMARY | 2022-07-29 08:32 | XMS_ITS | Encounter Summary ---
:1985 Author Organization [facility] Address [address] [place] [address] Care Team Providers Name Role Phone Unavailable Primary Care Provider Unavailable Encounter Details Date Type Department Care Team Description 01/12/2012 Hospital Encounter HX [facility] Gildardo Marvin M.D. [address] [place] [phone] (Wo rk) Social History Tobacco Use [...] How often do you attend lutheran or bahai More than 4 time s [...] Marvin M.D. - 01/12/2012 12:00 AM CDT [id number] IMPRESSION/REPORT/PLAN 1. Eustachian tube dysfunction. 2. Headache. [...] MARVIN MD On: 01/15/2012 10:03 AM Source: [facility] Document Id: [id number] documented in this encounter Miscellaneous Notes Miscellaneous - Vinicio Marvin M.D. - 01/12/2012 6:46 PM CDT Ambulatory Depart Summary [address] [address] Visit Information Name: PUNEET FRIED Visit Date: [...] provider for clarification. Additional Information: Source: [facility] POWERCHART Document Id: [id number] Miscellaneous - Vinicio Marvin M.D. - 01/12/2012 6:46 PM CDT Ambulatory Patient Summary [address] [address] Visit Information Name: PUNEET FRIED Current Date: [...] Appointments found Your Goals/Additional instructions: Source: [facility] POWERCHART Document Id: [id number] Miscellaneous - Josephine Acosta L.PBrittaneyN. - 01/12/2012 [...] KARLA JOSEPHINE - 01/12/2012 18:07 CDT [facility] Document Id: [id number] CDT!24 Miscellaneous - Josephine Acosta L.P.N. 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
--- OUTSIDE RECORDS SUMMARY | 2022-07-29 08:32 | XMS_ITS | Encounter Summary ---
:1985 Author Organization [facility] Address [address] [place] [address] Care Team Providers Name Role Phone Unavailable Primary Care Provider Unavailable Encounter Details Date Type Department Care Team Description 07/31/2014 Hospital [facility] Pavel BELTRAN Obi, M.D. [address] [place] [address] (Wo rk) Social History Tobacco [...] How often do you attend cheondoism or confucianism More than 4 time s [...] Comments Blood Pressure 154/92 07/31/2014 10:14 AM RN DOCUMENT IMPROVEMENT Pulse - - Temperature - - Respiratory Rate - - Oxygen Saturation - - Inhaled Oxygen Concentration - - Weight 143 kg (315 lb 11.2 oz) 07/31/2014 10:14 AM RN DOCUMENT IMPROVEMENT Height 158 cm (5' 2.21) 07/31/2014 10:14 AM RN DOCUMENT IMPROVEMENT Body Mass Index 57.36 07/31/2014 10:14 AM RN DOCUMENT IMPROVEMENT documented in this encounter Procedure Notes Berny [...] CHAU MD On: 07/31/2014 10:33 AM Source: [facility] POWERCHART Document Id: [id number] DOCUMENT IMPROVEMENT documented in this encounter Miscellaneous Notes Miscellaneous - Alison Monsivais L.P.N. - 07/31/2014 10:14 AM CST Adult Calker Intake/History Adult Calker Intake/History Entered On: 07/31/2014 10:16 RN DOCUMENT IMPROVEMENT Performed On: 07/31/2014 10:14 RN DOCUMENT IMPROVEMENT by ALISON MONSIVAIS LPN Intake Chief Complaint [...] kg/m2 ALISON MONSIVAIS LPN - 07/31/2014 10:14 RN DOCUMENT IMPROVEMENT General Info Information Given By : Patient Languages : Turkmen Is Patient Female and 13-50 no hysterectomy : Yes Status : Patient denies Are you ? : No ALISON MONSIVAIS LPN - 07/31/2014 10:14 RN DOCUMENT IMPROVEMENT Subjective Pain Symptoms : No ALISON MONSIVAIS LPN - 07/31/2014 10:14 RN DOCUMENT IMPROVEMENT Dependent Habits Tobacco Use/Currently Using : Yes Tobacco Use/Advised to Quit : Yes Exposure to Tobacco Smoke : Patient smokes Smoking Status : Current some day smoker ALISON MONSIVAIS LPN - 07/31/2014 10:14 RN DOCUMENT IMPROVEMENT Tobacco Use Grid Type : Cigarettes Cigarette Use Packs/Day : 0.5 Last Use : 04/30/2014 ALISON MONSIVAIS LPN - 07/31/2014 10:14 RN DOCUMENT IMPROVEMENT Caffeine Use Grid Caffeine Use : Current Type : Coffee, Soft drinks Frequency : Daily ALISON MONSIVAIS LPN - 07/31/2014 10:14 RN DOCUMENT IMPROVEMENT Recreational Drug Use Grid Drug Use : None ALISON MONSIVAIS LPN - 07/31/2014 10:14 RN DOCUMENT IMPROVEMENT ID Screen Travel Within Last 21 Days : No ALISON MONSIVAIS LPN - 07/31/2014 10:14 RN DOCUMENT IMPROVEMENT Source: [facility] POWERCHART Document Id: [id number] RN DOCUMENT IMPROVEMENT!40 DOCUMENT IMPROVEMENT documented in this encounter Plan of Treatment Not on filedocumented as of this encounter Visit Diagnoses Not on filedocumented in this encounter Additional Health Concerns Assessment Noted Time PHQ-9 Depression Total Score: 18 05/02/2014 9:45 AM CD T documented as of this encounter
--- OUTSIDE RECORDS SUMMARY | 2022-07-29 08:32 | XMS_ITS | Encounter Summary ---
:1985 Author Organization [facility] Address [address] [place] [address] Care Team Providers Name Role Phone Unavailable Primary Care Provider Unavailable Encounter Details Date Type Department Care Team Description 05/28/2014 Hospital Encounter HX [facility] Jalen Nesbitt, JOSEFA, C.N.P., D. N.P. [address] [place] [phone] (Wo rk) Social History Tobacco [...] How often do you attend congregation or catholic More than 4 time s [...] APRN, C.N.P. - 05/28/2014 2:27 PM CDT [id number] CHIEF COMPLAINT/REASON FOR VISIT Cough and cold symptoms. HISTORY OF PRESENT ILLNESS aCrol is a 28-year-old female who has had [...] Pino/robb Electronically Signed By: JALEN NESBITT RN, JACKER FEEDER On: 05/30/2014 08:27 AM Source: [facility] MHSDOLBEYNONRADSYS Document Id: [id number] documented in this encounter Miscellaneous Notes Miscellaneous - Jude Cardona L.P.N. - 05/28/2014 2:31 PM CDT Adult [place] Stained Glass Intake/History Adult [place]ier Stained Glass Intake/History Entered On: 05/28/2014 14:32 CDT Performed [...] 05/28/2014 14:31 CDT General Info Languages : Cymraes Is Patient Female and [...] CARDONA LPN - 05/28/2014 14:31 CDT Source: [employer] Document Id: [id number] CDT!39 documented in this encounter Plan of Treatment Not on filedocumented as of this encounter Visit Diagnoses Not on filedocumented in this encounter Additional Health Concerns Assessment Noted Time PHQ-9 Depression Total Score: 18 05/02/2014 9:45 AM CD T documented as of this encounter
--- OUTSIDE RECORDS SUMMARY | 2022-07-29 08:32 | XMS_ITS | Encounter Summary ---
:1985 Author Organization [facility] Address [address] [place] [address] Care Team Providers Name Role Phone Unavailable Primary Care Provider Unavailable Encounter Details Date Type Department Care Team Description 04/05/2012 Hospital Encounter HX [facility] Gildardo Marvin M.D. [address] [place] [phone] (Wo rk) Social History Tobacco Use [...] Marvin M.D. - 04/05/2012 7:55 AM CDT [id number] IMPRESSION/REPORT/PLAN 1) Bronchitis with bacterial sinusitis with [...] MARVIN MD On: 04/06/2012 11:36 AM Source: [facility] MHSDOLBEYNONRADSYS Document Id: [id number] documented in this encounter Miscellaneous Notes Miscellaneous - Dung Noonan R.N. - 04/30/2014 3:53 PM CDT bee sting, ER From: DUNG NOONAN RN Sent: 04/30/2014 15:53:29 CDT Subject: bee sting, ER Pt has no PCP here, calls with bee sting on wrist yesterday getting worse, hand warm and red, swollen from fingers up wrist, breathing fine she reports. ER advised and notified. Source: [facility] POWERCHART Document Id: [id number] Miscellaneous - Vinicio Marvin M.D. - 04/05/2012 9:05 AM CDT Ambulatory Patient Summary [place] [id number] Visit Information Name: PUNEET FRIED Current Date: [...] No Appointments found Your Goals/Additional instructions: Source: [facility] POWERCHART Document Id: [id number] Leilani - Vinicio Marvin M.D. - 04/05/2012 9:05 AM CDT Ambulatory Depart Summary [address] [address] Visit Information Name: PUNEET FRIED Visit Date: [...] your provider for clarification. Additional Information: Source: [facility] POWERCHART Document Id: [id number] Leilani - Roosevelt Rodriges L.P.N. - 04/05/2012 8:07 AM CDT Adult Shipping Packer Intake/History Adult Shipping Packer Intake/History Entered On: 04/05/2012 8:11 CDT Performed [...] ACOSTA; Reviewed Date: 03/24/2012 11:30 CDT [facility] POWER[facility] Document Id: [id number] documented in this encounter Plan of Treatment Not on filedocumented as of this encounter Visit Diagnoses Not on filedocumented in this encounter
--- OUTSIDE RECORDS SUMMARY | 2022-07-29 08:32 | XMS_ITS | Encounter Summary ---
:1985 Author Organization [facility] Address [address] [place] [address] Care Team Providers Name Role Phone Unavailable [...] How often do you attend caodaism or restoration More than 4 time s [...] Marisol Couch - 12/08/2011 12:00 AM CDT [id number] MARIA T Dowell [address] [phone] [facility] December 08, 2011 Dear Carol: Our records indicate that you recently cancelled your appointment with Kaye Magallanes, Ph.D., L.P.. Thank you for notifying our office. Your next scheduled appointment is: Friday, December 23, 2011 at 12:00 PM If you are unable to keep this appointment, please call the [facility] Department at your earliest convenience at or toll-free at to or cancel or reschedule. We look forward to hearing from you. Thank you, [facility] Source: [employer] GROUPHXTRANSXRTFSYS Document Id: [id number] Electronically signed by Conversion, [facility] Bulk Plant Manager [id number] at 01/23/2017 8:25 PM CDT documented in this encounter Plan of Treatment Not on filedocumented as of this encounter Visit Diagnoses Not on filedocumented in this encounter
--- OUTSIDE RECORDS SUMMARY | 2022-07-29 08:32 | XMS_ITS | Encounter Summary ---
:1985 Author Organization [facility] Address [address] [place] [address] Care Team Providers Name Role Phone Unavailable Primary Care Provider Unavailable Encounter Details Date Type Department Care Team Description 04/07/2013 Hospital Encounter [facility] FAMILY[facility]A Ysabel Reyes R.NBrittaney [address] [phone] Social History Tobacco Use Types [...] How often do you attend yarsani or religion More than 4 time s [...] Reyes R.N. - 04/07/2013 12:00 AM CDT [id number] Bug bite on Wednesday when she was in [place]. Pt stated bug was a flying not [...] Allergies reviewed and problem list reviewed. [facility] RWHXTRANSXRTFSYS Document Id: [id number] documented in this encounter Plan of Treatment Not on filedocumented as of this encounter Visit Diagnoses Not on filedocumented in this encounter
--- OUTSIDE RECORDS SUMMARY | 2022-07-29 08:32 | XMS_ITS | Encounter Summary ---
:1985 Author Organization [facility] Address [address] [place] [address] Care Team Providers Name Role Phone Unavailable [...] How often do you attend samaritan or cheondoism More than 4 time s [...] Magallanes, Ph.D. - 11/15/2012 12:00 AM CDT [id number] LETTER Carol Dowell Juarez [address] [place] [phone] November 15, 2012 Dear Carol: In reviewing my records, I realized that I have not seen you for sometime. I am writing, therefore, to determine if you are interested in continuing therapy and desire to schedule a new appointment. If you would like an appointment, please call our campus receptionist at [phone] or . Ifwe do not hear from you within two weeks, we will assume that your are not interested in scheduling further appointments. I look forward to hearing from you. Sincerely, Kaye Magallanes, Ph.D., L.P. Source: [facility] RWHXTRANSXRTFSYS Document Id: [id number] Electronically signed by Conversion, [facility] Veneer Sorter [id number] at 01/18/2017 10:03 PM CDT documented in this encounter Plan of Treatment Not on filedocumented as of this encounter Visit Diagnoses Not on filedocumented in this encounter
--- OUTSIDE RECORDS SUMMARY | 2022-07-29 08:32 | XMS_ITS | Encounter Summary ---
:1985 Author Organization [facility] Address [address] [place] [address] Care Team Providers Name Role Phone Unavailable [...] How often do you attend adventism or quaker More than 4 time s [...]
--- OUTSIDE RECORDS SUMMARY | 2022-07-29 08:32 | XMS_ITS | Encounter Summary ---
:1985 Author Organization [facility] Address [address] [place] [address] Care Team Providers Name Role Phone Unavailable Primary Care Provider Unavailable Encounter Details Date Type Department Care Team Description 04/30/2014 Hospital Encounter HX [facility] ED Remi Marvin M.D. [address] [phone] (Wo rk) Social History Tobacco [...] How often do you attend caodaism or faith More than 4 time s [...] 04/30/2014 7:01 PM CDT ED Discharge Instructions [address] [address] Name: PUNEET FRIED Date of : 1985 12:00 AM Visit Date: 04/30/2014 4:05 PM [facility] Number: [id number] Address: [address] [place] [phone] Primary Care Provider: MICHELLE BEAR MD IMPORTANT: [facility] in [place] would like to thank you for allowing us to assist you with your healthcare needs. The following includes patient education materials and informationregarding your injury/illness. Diagnosis: Allergy Bee Sting Active; Hives; Reaction Allergic Active Follow-Up Instructions: With: Address: When: MICHELLE BEAR [address] [place] [id number] [facility] (1) Within As Needed Comments: For recheck If symptoms worsen Your Upcoming Appointments: Date Time Location Provider No Appointments found Patient Education Materials: [id number] ALLERGIC REACTION, OTHER [local] You are having [...] Colored fluid draining from the wound ?? 4622-5081 [place] [address]. All rights reserved. This information is not intended as a substitute for professional medical care. Always follow your healthcare professional's instructions. [id number] MEDICATION: ZYRTEC Zyrtec (generic name is cetirizine) [...] any questions that you may have.] ?? 6124-3775 [place] [address]. All rights reserved. This information is not intended as a substitute for professional medical care. Always follow your healthcare professional's instructions. [id number] INSECT BITE Insects most often bite to [...] HOME CARE Medications: The doctor may prescribe jhtv-jqf-jtpjpth (OTC) medications to help relieve itching andswelling. [...] you have trouble breathing, call 911) ?? [phone] [facility], [address] [place] [address]. All rights reserved. This information is not [...] document has images extracted. Please consider using [employer] for all your patient education needs. Source: [facility] POWERCHART Document Id: [id number] Bambi Addison R.N. - 04/30/2014 7:01 PM CDT ED Depart Summary [facility] Emergency Department Clinical Discharge Summary PERSON INFORMATION Name PUNEET FRIED Age 28 Years 1985 12:00 AM Sex Female Language Citizen Of [place] PCP MICHELLE BEAR MD Marital Status Single Visit Id Visit Reason Hand pain-swelling; Bee Sting Specialty Enc Type Emergency Med Service Emergency Medicine Referred by Track Group [facility] ED Discharge 04/30/2014 6:20 PM Tracking Id [id number] Checkout 04/30/2014 6:20 PM Checkin 04/30/2014 4:05 PM Acuity 4 -Less Urgent Dispo Type * Discharged to Home or Self Care Arrival 04/30/2014 4:05 PM Reg Status Complete LOS 000 02:15 Address: [address] [place] [phone] Comment: PROVIDER INFORMATION Provider Role Provider Contact Time RUIZ MARVIN MD ED Provider 04/30/14 16:37 BAMBI ADDISON CARROTER Nurse 04/30/14 17:21 DIAGNOSIS Allergy Bee Sting Active; Hives; Reaction Allergic Active Comment: PATIENT EDUCATION INFORMATION Instructions: ALLERGIC REACTION, Other (Local); ZYRTEC; INSECT BITE Follow up: With: Address: When: MICHELLE BEAR [address] [place] [address] [phone] [employer] (8) Within As Needed Comments: For recheck If symptoms worsen Source: [employer] Document Id: [id number] documented in this encounter ED Notes Bambi [...] ADDISON RN - 04/30/2014 18:59 CDT Source: [employer] Document Id: [id number] CDT!9 Bambi Addison R.N. - 04/30/2014 6:57 [...] ADDISON RN - 04/30/2014 18:57 CDT Source: [employer] Document Id: [id number] CDT!7 Bambi Addison R.N. - 04/30/2014 6:10 PM CDT ED Treatments and Procedures ED Treatments and Procedures Entered On: 04/30/2014 18:57 CDT Performed On: 04/30/2014 18:10 CDT by BAMBI ADIDSON RN Peripheral IV Peripheral IV Assess/Intervention Grid [...] ADDISON RN - 04/30/2014 18:55 CDT Source: [employer] Document Id: [id number] CDT!11 Bambi Addison R.N. - 04/30/2014 5:45 [...] ADDISON RN - 04/30/2014 18:52 CDT Source: [employer] Document Id: [id number] CDT!19 Bambi Addison R.N. - 04/30/2014 5:30 [...] ADDISON RN - 04/30/2014 18:50 CDT Source: [employer] Document Id: [id number] CDT!13 Ruiz Marvin M.D. - 04/30/2014 5:22 [...] (maternal) Comments: 03/13/2014 13:47 - JORY COPPOLA SHAG TRUCK DRIVER ear Grandfather (maternal) Comments: 03/13/2014 13:47 - JORY COPPOLA LPN larynx Cystic fibrosis Sister [place] - Lung cancer Grandmother (paternal, ) Comments: 03/13/2014 13:47 - JORY COPPOLA SHAG TRUCK DRIVER brain cancer Hypothyroidism Mother Myocardial infarction Father: [...] PM This document has images extracted. Source: [facility] POWERCHART Document Id: [id number]} Bambi Addison RRoverto - 04/30/2014 4:22 PM [...] Medical ; Code: V22.2 ; Contributor System: ODIN ; Last Updated: 01/21/2012 9:41 CDT ; Life Cycle Date: 01/12/2012 ; Life Cycle Status: Active ; Responsible Provider: GLEN ACOSTA; Vocabulary: ICD-9-CM Diagnoses(Active) Hand pain-swelling Date: 04/30/2014 ; Diagnosis Type: Reason For Visit ; Confirmation: Complaint of ; Clinical Dx: Hand pain-swelling ; Classification: Medical ; Clinical Service: Emergency medicine ; Code: PNED ; Probability: 0 ; Diagnosis Code: [id number] Triage Chief Complaint Description : see triage note Mode of Arrival ED : Private vehicle, Ambulatory Track : Medical Languages : Citizen [place] Is Patient Female and 13-50 no hysterectomy [...] ADDISON RN - 04/30/2014 16:22 CDT Source: [facility] Searchbox Document Id: [id number] CDT!53 Bambi Addison R.N. - 04/30/2014 4:11 [...] Medical ; Code: 784.0 ; Contributor System: [employer]_PR_UPLOAD ; Last Updated: 11/18/2013 19:04 CDT ; [...] Medical ; Code: V22.2 ; Contributor System: ODIN ; Last Updated: 01/21/2012 9:41 CDT ; Life Cycle Date: 01/12/2012 ; Life Cycle Status: Active ; Responsible Provider: GLEN ACOSTA; Vocabulary: ICD-9-CM Diagnoses(Active) Hand pain-swelling Date: 04/30/2014 ; Diagnosis Type: Reason For Visit ; Confirmation: Complaint of ; Clinical Dx: Hand pain-swelling ; Classification: Medical ; Clinical Service: Emergency medicine ; Code: PNED ; Probability: 0 ; Diagnosis Code: [id number] Triage Chief Complaint Description : was stung by bee last grace and awoke this am with left wrist and hand swollen and red. Information Given By : Patient Accompanied By : Alone Mode of Arrival ED : Private vehicle, Ambulatory Track : Medical Languages : Citizen [place] Patient Informed of Triage Location : Emergency [...] : 4 -Less Urgent Tracking Group : [facility] ED BAMBI ADDISON SHRUTHI - 04/30/2014 16:11 CDT Allergy (As Of: 04/30/2014 16:17:45 CDT) Allergies (Active) penicillins Estimated Onset Date: Unspecified ; Created By: GLEN ACOSTA; Reaction Status: Active ;Category: Drug ; Substance: penicillins ; Type: Allergy ; Updated By: GLEN ACOSTA; Reviewed Date: 03/13/2014 13:40 CDT Source: [employer] Document Id: [id number] CDT!49 documented in this encounter Miscellaneous Notes Miscellaneous - Bambi Addison R.N. - 04/30/2014 7:00 PM CDT Valuables/Belongings Valuables/Belongings Entered On: 04/30/2014 19:00 CDT Performed On: 04/30/2014 19:00 CDT by BAMBI ADDISON RN Valuables/Belongings Valuables/Belongings Grid Valuables with Patient Clothes, Patient Valuables : Pants, Shirt, Shoes, Undergarments Electronic Devices : Cell phone BAMBI ADDISON RN - 04/30/2014 19:00 CDT Source: [employer] Document Id: [id number] CDT!6 Miscellaneous - Bambi Addison R.N. - [...] Control : 5 Lynx Visit Level : 97814 Level 3 Treatments Prior to Arrival : None BAMBI ADDISON RN - 04/30/2014 19:00 CDT Source: [facility] Searchbox Document Id: [id number] CDT!18 documented in this encounter Plan of Treatment Not on filedocumented as of this encounter Visit Diagnoses Not on filedocumented in this encounter Additional Health Concerns Assessment Noted Time PHQ-9 Depression Total Score: 16 04/02/2014 9:58 AM CD T documented as of this encounter
--- OUTSIDE RECORDS SUMMARY | 2022-07-29 08:32 | XMS_ITS | Encounter Summary ---
:1985 Author Organization [facility] Address [address] [place] [address] Care Team Providers Name Role Phone Unavailable Primary Care Provider Unavailable Encounter Details Date Type Department Care Team Description 11/03/2012 - Hospital Encounter HX [facility] ED Stephen Toth M.D. 11/04/2012 Social [...] 11/14/2012 2:53 PM CDT ED Discharge Instructions [address] [address] Name: PUNEET FRIED Date of : 1985 12:00 AM Visit Date: 11/03/2012 8:13 PM [facility] Number: [id number] Address: [address] [place] [phone] Primary Care Provider: RABIA NATHAN MD IMPORTANT: [facility] in [place] would like to thank you for allowing [...] with fevers. With: Address: When: RABIA NATHAN [address] [place] [address] Business (1) Within As Needed Comments: Patient Education Materials: [id number] NECK SPASM [No trauma] Spasm of the [...] or vomiting Fever over 100.4??F (38.0??C) ?? [id number] [employer], [address] [place] [address]. All rights reserved. This information is not [...] document has images extracted. Please consider using [employer] for all your patient education needs. Source: [facility] POWERCHART Document Id: [id number] Jeaneth Rodríguez R.N. - 11/14/2012 2:53 PM CDT ED Depart Summary [facility] Emergency Department Clinical Discharge Summary PERSON INFORMATION Name PUNEET FRIED Age 26 Years 1985 12:00 AM Sex Female Language French PCP RABIA NATHAN MD Marital Status Single N [id number] [facility] [id number] Visit Reason ; Head pain; PAIN, BACK, RT SIDE OF HEAD Specialty Enc Type Emergency Med Service Emergency Medicine Referred by Track Group [facility] ED Discharge 11/04/2012 4:26 PM Tracking Id [id number] Checkout 11/04/2012 3:14 PM Checkin 11/03/2012 8:13 PM Acuity Dispo Type * Discharged to Home or Self Care Arrival 11/03/2012 8:13 PM Reg Status LOS 000 19:01 Address: [address] [place] [phone] Comment: PROVIDER INFORMATION Provider Role Provider Contact Time RIUZ KING MD ED Provider 11/04/12 15:11 RUIZ KING MD ED Provider 11/04/12 15:11 DIAGNOSIS Comment: PATIENT EDUCATION INFORMATION Instructions: NECK SPASM, No Trauma Follow up: With: Address: When: Return to Emergency Department Within As Needed Comments: Return to ER if you develop severe worsening, generalized headache with fevers. With: Address: When: RABIA VENITA [address] [place] [phone] Business (1) Within As Needed Comments: Source: [facility] [employer] Document Id: [id number] documented in this encounter Nursing Notes Rylee [...] Medical ; Code: 1231 ; Contributor System: [email or web address] ; Last Updated: 01/21/2012 9:41 CDT ; Life Cycle Date: 01/12/2012 ; Life Cycle Status: Active ; Responsible Provider: GLEN ACOSTA; Vocabulary: ICD-9-CM Diagnoses(Active) Head pain Date: 11/03/2012 ; Diagnosis Type: Reason For Visit ; Confirmation: Complaint of ; Clinical Dx: Head pain ; Classification: Medical ; Clinical Service: Emergency medicine ; Code: PNED ; Probability: 0 ; Diagnosis Code: [id number] Triage Chief Complaint Description : see notes Information Given By : Patient Accompanied By : Friend Mode of Arrival ED : Private vehicle Track : Medical Languages : French RYLEE ROMERO RN - 11/03/2012 20:47 CDT [...] ROMERO RN - 11/03/2012 20:47 CDT Source: [facility] [employer] Document Id: [id number] documented in this encounter ED Notes Stephen [...] selected or recorded. Surgical history: . None ([id number]). Family history: . No family history items [...] % 58.8 % Lymph % 31.9 % Curry % 6.9 % Eos % 2.2 % Baso % 0.2 % Neutro Absolute 5.73 10(9)/L Lymph Absolute 3.10 x10(9)/L HI Curry Absolute 0.67 x10(9)/L Eos Absolute 0.21 x10(9)/L [...] TOTH MD On: 11/03/2012 09:21 PM Source: [facility] [employer] Document Id: [id number]} Rylee Romero R.N. - 11/03/2012 8:44 PM [...] Medical ; Code: 1231 ; Contributor System: [email or web address] ; Last Updated: 01/21/2012 9:41 CDT ; Life Cycle Date: 01/12/2012 ; Life Cycle Status: Active ; Responsible Provider: GLEN ACOSTA; Vocabulary: ICD-9-CM Diagnoses(Active) Head pain Date: 11/03/2012 ; Diagnosis Type: Reason For Visit ; Confirmation: Complaint of ; Clinical Dx: Head pain ; Classification: Medical ; Clinical Service: Emergency medicine ; Code: PNED ; Probability: 0 ; Diagnosis Code: [id number] Triage Chief Complaint Description : 26 year old female admits with compalints of right sided ocipital painx24 hrs. Pt states she has been exposed to menigitis on Wednesday Information Given By : Patient Mode of Arrival ED : Private vehicle Track : Medical Languages : French RYLEE ROMERO RN - 11/03/2012 20:44 CDT [...] ROMERO RN - 11/03/2012 20:44 CDT Source: [employer] Document Id: [id number] documented in this encounter Miscellaneous Notes Miscellaneous [...] Control : 8 Lynx Visit Level : 80973 Level 4 [place] - 11/08/2012 13:29 CDT Source: [employer] Document Id: [id number] documented in this encounter Plan of Treatment [...] % 31.9 23.0 - POWERCHART 44.0 HX Curry % 6.9 2.0 - 18.0 POWERCHART HX [...] M.D. LAB HISTORICAL ORDERS Performing Organization Address City/[facility]/ZIP Code Phon e Number POWERCHART CRP (C-Reactive Protein) (11/03/2012 9:10 PM CDT) P athologist Signature C-Reactive 0.4 0.0 - 0.8 POWERCHART Protein (CRP), MGDL S Specimen (Source) Anatomical Collection Method Collection Time Re ceived Time Location / / Volume Laterality Blood 11/03/2012 9:10 PM CDT Stephen Toth M.D. LAB BLOOD ADD-ON Performing Organization Address City/[facility] Code Phon e Number POWERCHART documented in this encounter Visit Diagnoses Not on filedocumented in this encounter
--- OUTSIDE RECORDS SUMMARY | 2022-07-29 08:32 | XMS_ITS | Encounter Summary ---
:1985 Author Organization [facility] Address [address] [place] [address] Care Team Providers Name Role Phone Unavailable [...]
--- OUTSIDE RECORDS SUMMARY | 2022-07-29 08:32 | XMS_ITS | Encounter Summary ---
:1985 Author Organization [facility] Address [address] [place] [address] Care Team Providers Name Role Phone Unavailable [...] How often do you attend confucianist or judaism More than 4 time s [...]
--- OUTSIDE RECORDS SUMMARY | 2022-07-29 08:32 | XMS_ITS | Encounter Summary ---
:1985 Author Organization [facility] Address [address] [place] [address] Care Team Providers Name Role Phone Unavailable Primary Care Provider Unavailable Encounter Details Date Type Department Care Team Description 11/01/2014 Hospital Encounter [facility] Maureen Berman P.A.-C., M.S. [address] [place] [phone] (Wo rk) Social History Tobacco Use Types [...] How often do you attend hindu or zoroastrian More than 4 time s [...] P.A.-C., M.S. - 11/01/2014 9:05 AM CDT [id number] CHIEF COMPLAINT/REASON FOR VISIT Headache management. HISTORY [...] MONACO PA-C On: 11/05/2014 01:01 PM Source: [facility] MHSDOLBEYNONRADSYS Document Id: [id number] documented in this encounter Miscellaneous Notes Miscellaneous - Rosalind Berman P.A.-C., M.S. - 11/01/2014 10:51 AM CDT Normal Results Letter 01 November 2014 PUNEET FRIED [address] [place] [id number] Dear PUNEET FRIED, I am pleased to [...] 11/01/2014 150 - 450 Sincerely, ROSALIND MONACO [address] [place] [address] Electronic Signature Electronically Signed By: ROSALIND MONACO PA-C On: 01 November 2014 This document has images extracted. 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 : No BARBARA VALLES Nena [facility] - 11/01/2014 9:12 CDT Subjective Pain Symptoms : Yes FRANCIEИРИНАBARBARA Nena [facility] - 11/01/2014 9:12 CDT Pain Scale Pain Scale Verbal 0-10 : Open BARBARA VALLES Nena [facility] - 11/01/2014 9:12 CDT Pain Pain Assessment Grid Pain 1 Location : Head Intensity : 8 BARBARA VALLES Nena [facility] - 11/01/2014 9:12 CDT Dependent Habits Tobacco Use/Currently Using : Yes Tobacco Use/Advised to Quit : Yes Exposure to Tobacco Smoke : Patient smokes Smoking Status : Current every day smoker BARBARA VALLES Nena [facility] - 11/01/2014 9:12 CDT Tobacco Use Grid Type : Cigarettes Cigarette Use Packs/Day : 0.5 Last Use : 04/30/2014 FRANCIEBARBARA GIFFORD [facility] - 11/01/2014 9:12 CDT Caffeine Use Grid Caffeine Use : Current Type : Coffee, Soft drinks Frequency : Daily BARBARA VALLES [facility] - 11/01/2014 9:12 CDT Recreational Drug Use Grid Drug Use : None BARBARA VALLES [facility] - 11/01/2014 9:12 CDT ID Screen Travel Within Last 21 Days : No Contact with someone with Ebola : No BARBARA VALLES [facility] - 11/01/2014 9:12 CDT Source: [facility] POWERCHART Document Id: [id number] CDT!50 documented in this encounter Plan of [...] X109L Erythrocytes 4.74 3.90 - 5.03 POWERCHART I5560D HX RDW 13.2 11.9 - 15.5 POWERCHART [...]
--- OUTSIDE RECORDS SUMMARY | 2022-07-29 08:32 | XMS_ITS | Encounter Summary ---
:1985 Author Organization [facility] Address [address] [place] [address] Care Team Providers Name Role Phone Unavailable [...] How often do you attend amish or alevism More than 4 time s [...]
--- OUTSIDE RECORDS SUMMARY | 2022-07-29 08:32 | XMS_ITS | Encounter Summary ---
:[address] [facility] Address [address] [place] [address] Care Team Providers Name Role Phone Unavailable Primary Care Provider Unavailable Encounter Details Date Type Department Care Team Description 05/04/2014 Hospital Encounter [facility] Oralia San O.D. Social History Tobacco [...] How often do you attend congregational or congregational More than 4 time s [...] ( ORTHO ) Current RX: Sphere Cylinder [place] Add Prism Right Eye ( -2.00 ) [...] ROACH OD On: 05/04/2014 11:27 AM Source: [facility] POWERCHART Document Id: [id number] documented in this encounter H&P Notes Oralia Roach O.D. - 05/04/2014 10:37 AM CDT [id number] The patient is in today noticing some [...] given for new glasses. Trials for Acuvue [place] were dispensed along with Biotrue kit. Patient [...] ROACH OD On: 05/07/2014 09:34 AM Source: [facility] MHSDOLBEYNONRADSYS Document Id: [id number] documented in this encounter Miscellaneous Notes Miscellaneous [...] if needed ) ( ) Call for Auto Transmission Mechanic ( ) Follow up on Results ( ) Other: PROVIDER: ( ) Call Physician ( ) Call Pharmacist ( ) Call Lab ( ) Other: Special Instructions: Comments: Source: [facility] POWERCHART Document Id: [id number] Electronically signed by Roland [facility] Screwhead Polisher [id number] at 01/19/2017 11:34 AM CDT Miscellaneous - Oralia Roach O.D. - 05/04/2014 11:49 AM CDT Ambulatory Patient Summary [facility] [address] [place] [address] [address] [place], [place] [id number] Visit Information Name: FRIEDPUNEET CLAY CHRISTIANO [facility] Number: [id number] Current Date: 05/04/2014 11:49:30 Physicians [...] instructions: Source: [facility] POWERCHART Document Id: [id number] Miscellaneous - Oralia Roach O.D. - 05/04/2014 11:49 AM CDT Ambulatory Discharge Medication List [facility] [address] [place], [place] [phone] Visit Information Name: PUNEET FRIED [facility] Number: [id number] Visit Date: 05/04/2014 11:49:29 Attending [...] OD Signed On:04-MAY-2014 11:48:28 Additional Information: Source: [facility] POWERCHART Document Id: [id number] Miscellaneous - Vu Craven C.O.A. 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 Shotblast Operator Intake/History Adult Shotblast Operator Intake/History Entered On: 05/04/2014 10:51 CDT Performed [...] VU CRAVEN - 05/04/2014 10:51 CDT Source: [facility] Document Id: [id number] CDT!29 documented in this encounter Plan of Treatment Not on filedocumented as of this encounter Visit Diagnoses Not on filedocumented in this encounter Additional Health Concerns Assessment Noted Time PHQ-9 Depression Total Score: 18 05/02/2014 9:45 AM CD T documented as of this encounter
--- OUTSIDE RECORDS SUMMARY | 2022-07-29 08:32 | XMS_ITS | Encounter Summary ---
:1985 Author Organization [facility] Address [address] [place] [address] Care Team Providers Name Role Phone Unavailable Primary Care Provider Unavailable Encounter Details Date Type Department Care Team Description 03/24/2012 Hospital Encounter [facility] [address] [place] [phone] (Wo rk) Social History Tobacco Use [...] often do you attend oriental orthodox or gnosticism More than 4 time s [...] Farias M.D. - 03/24/2012 12:00 AM CDT [id number] CHIEF COMPLAINT/REASON FOR VISIT Urinary frequency. HISTORY [...] expressed understanding of the content Leonora Brito M.D./[facility] Electronically Signed By: LEONORA NATHAN MD On: 04/05/2012 10:30 AM Modified by and Electronically Signed by: LEONORA NATHAN MD On: 04/05/2012 10:29 AM Source: [facility] MHSDOLBEYNONRADSYS Document Id: [id number] documented in this encounter Miscellaneous Notes Miscellaneous - Leonora Farias M.D. - 03/24/2012 11:41 AM CDT Ambulatory Patient Summary [id number] [place] [address] Visit Information Name: PUNEET FRIED Current Date: [...] found Your Goals/Additional instructions: Source: [facility] POWERCHART Document Id: [id number] Leonora Russell M.D. - 03/24/2012 11:41 AM CDT Ambulatory Depart Summary [address] [address] Visit Information Name: PUNEET FRIED Visit Date: [...] for clarification. Additional Information: Source: [facility] openPeopleCHART Document Id: [id number] Mimi Gaines L.P.N. - 03/24/2012 11:23 AM CDT Adult Telecommunications Technician Intake/History Adult Telecommunications Technician Intake/History Entered On: 03/24/2012 11:30 CDT Performed [...] Preferred Communication Mode : Verbal Languages : Zambian MIMI HERRERA LPN, RT - 03/24/2012 11:23 [...] ACOSTA; Reviewed Date: 01/21/2012 9:28 CDT Source: [facility] POWERCHART Document Id: [id number] documented in this encounter Plan of Treatment [...] Results Urine Microscopic (03/24/2012 11:34 AM CDT) [facility] Method Time Signature HXUr WBC 10-25 [...] POWERCHART Urinalysis, Routine (03/24/2012 11:34 AM CDT) [facility] Method Time Signature HXUr Color Yellow POWERCHART Appearance Slightly POWERCHART Cloudy Glucose Negative POWERCHART HXBILIRUBIN Negative POWERCHART Ketones, QL(U) Negative POWERCHART Specific 1.025 1.000 - POWERCHART [place], POCT, U 1.030 pH, POCT, Urine 5.5 [...]
--- OUTSIDE RECORDS SUMMARY | 2022-07-29 08:32 | XMS_ITS | Encounter Summary ---
:1985 Author Organization [facility] Address [address] [place] [address] Care Team Providers Name Role Phone Unavailable [...] How often do you attend caodaism or gnosticist More than 4 time s [...] Historical Provider Ser - 09/08/2011 12:00 AM BLENDER/BRAZE APPLICATOR [id number] LETTER Carol Juarez [address] [place] [phone] [facility] September 08, 2011 Dear Craol: Our records indicate that you recently cancelled [...] this appointment, please call the [facility] Department as soon as possible at or toll-free to reschedule or cancel. We look forward to hearing from you. Thank you, [facility] Source: [facility] RWHXTRANSXRTFSYS Document Id: [id number] documented in this encounter Plan of Treatment Not on filedocumented as of this encounter Visit Diagnoses Not on filedocumented in this encounter
--- OUTSIDE RECORDS SUMMARY | 2022-07-29 08:33 | XMS_ITS | Encounter Summary ---
:1985 Author Organization [facility] Address [address] [place] [address] Care Team Providers Name Role Phone Unavailable Primary Care Provider Unavailable Encounter Details Date Type Department Care Team Description 02/04/2010 Hospital En[facility] Yamel Koch M.D. [address] [place] [phone] (Wo rk) Social History Tobacco [...] Giang M.D. - 02/04/2010 9:00 AM CDT [id number] Chief Complaint Patient presents with Abdominal Pain [...] well. Wet prep reviewed and normal. Source: [facility] RWHXTRANSXRTFSYS Document Id: [id number] Electronically signed by Conversion, [facility] Hr Analyst [id number] at 01/24/2017 11:08 AM CDT documented in this encounter Plan of Treatment Not on filedocumented as of this encounter Visit Diagnoses Not on filedocumented in this encounter
--- OUTSIDE RECORDS SUMMARY | 2022-07-29 08:33 | XMS_ITS | Encounter Summary ---
:1985 Author Organization [facility] Address [address] [place] [address] Care Team Providers Name Role Phone Unavailable Primary Care Provider Unavailable Encounter Details Date Type Department Care Team Description 02/04/2010 Hospital Encounter HX NO MAPPING Venu Yousif M.D. [address] [place], [place] [phone] (Wo rk) Social History [...] How often do you attend uatsdin or advent More than 4 time s [...]
--- OUTSIDE RECORDS SUMMARY | 2022-07-29 08:33 | XMS_ITS | Encounter Summary ---
:1985 Author Organization [facility] Address [address] [place] [address] Care Team Providers Name Role Phone Unavailable Primary Care Provider Unavailable Encounter Details Date Type Department Care Team Description 03/24/[address] [facility] Yamel Koch M.D. [address] [place] [address] (Wo rk) Social History Tobacco [...] How often do you attend alevism or taoist More than 4 time s [...] Giang M.D. - 03/24/2010 11:00 AM CDT [id number] Chief Complaint: Chief Complaint Patient presents with [...] or return if worsening or spreading. Source: [facility] RWMCHXTRANSXRTFSYS Document Id: [id number] Electronically signed by Conversion, [facility] Cnc Milling Machine Operator [id number] at 01/24/2017 2:27 PM CDT documented in this encounter Miscellaneous Notes Miscellaneous - Venu Giang M.D. - 03/24/2010 11:00 AM CDT [id number] [facility] [address] [facility], [address] 03/24/2010 Carol Juarez TO WHOM IT MAY CONCERN: Carol Juarez was seen on 03/24/2010. Please excuse her 03/24/2010 due to a medical condition. She may return 03/25/2010 without restrictions. Cordially, Venu Giang M.D. [facility] Source: [facility] RWHXTRANSXRTFSYS Document Id: [id number] Electronically signed by Conversion, [facility] Cnc Milling Machine Operator [id number] at 01/24/2017 2:27 PM CDT documented in this encounter Plan of Treatment Not on filedocumented as of this encounter Visit Diagnoses Not on filedocumented in this encounter
--- OUTSIDE RECORDS SUMMARY | 2022-07-29 08:33 | XMS_ITS | Encounter Summary ---
:1985 Author Organization [facility] Address [address] [place] [address] Care Team Providers Name Role Phone Unavailable Primary Care Provider Unavailable Encounter Details Date Type Department Care Team Description 08/28/2011 Hospital Encounter [facility] Jairon Wolf M.D. [address] [place] [phone] (Wo rk) Social History Tobacco [...] Roberts M.D. - 08/28/2011 2:10 PM CST [id number] CC: follow up ER visit HPI: Carol [...] negative. GI: negative. BREAST: negative. : negative. 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 CV: negative. PULMONARY: No shortness of breath, dyspnea on exertion, cough, or hemoptysis. MUSCULOSKELETAL: negative. PSYCH: negative. PHYSICAL EXAM: This is a well-developed, well-nourished female in no apparent distress. Vitals: BP 126/78 Ht 1.588 m (5' 2.5) Wt 122.244 kg (269 lb 8 oz) BMI 48.51 kg/m2 Source: [facility] Document Id: [id number] documented in this encounter Miscellaneous Notes Miscellaneous - Mary Teran L.PBrittaneyN. - 08/28/2011 2:10 PM CST [id number] Carol Juarez [address] [facility] [phone] [facility] August 31, 2011 Dear [...] or problems, please contact our office at [phone]. Sincerely, Dr Obie Roberts Dept. WARD SUPERVISOR [facility] Source: [facility] Document Id: [id number] documented in this encounter Plan of Treatment Not on filedocumented as of this encounter Procedures Procedure Name Priority Date/Time Associated Comments Diagnosis HX SN - SPEC - Routine 08/30/2011 3:07 PM Results for this DESCRIPTION LAW FIRM ADMINISTRATOR procedure are i n the results section. HX SN - SPEC - Routine 08/30/2011 3:07 PM Results for this DESCRIPTION LAW FIRM ADMINISTRATOR procedure are i n the results section. HX CHLAMYDIA Routine 08/30/2011 3:07 PM Results f or this TRACHOMATIS AMPLIFIED LAW FIRM ADMINISTRATOR proced ure are in DNA-ID the results section. CHLAMYDIA TRACHOMATIS Routine 08/30/2011 3:07 PM Results for this AMPLIFIED RNA LAW FIRM ADMINISTRATOR procedure are in the results section. documented in this encounter Results Chlamydia trachomatis Amplified RNA (08/30/2011 3:07 PM LAW FIRM ADMINISTRATOR) Specimen (Source) Anatomical Collection Method Collection Time Re ceived Time Location / / Volume Laterality 08/30/2011 3:07 PM LAW FIRM ADMINISTRATOR Narrative [facility] - 10/23/19 14 7:05 PM LAW FIRM ADMINISTRATOR Negative for N. gonorrhoeae rRNA by wire turning machine operator mediated amplification. A negative result by wire turning machine operator media pipe amplification does not preclude the presence of N. gonorrhoeae infection bec ause results are dependent on proper and adequate collection, absence of inhi bitors, and sufficient rRNA to be detected. Historical Provider LAB MICROBIOLOGY - GENERAL O RDERABLES Performing Organization Address City/[facility]/ZIP Code Phon e Number [facility] HX SN - SPEC - DESCRIPTION (08/30/2011 3:07 PM LAW FIRM ADMINISTRATOR) [facility] [employer] Method Time Signature HXSPECIMAN Endocervical [facility] Specimen (Source) Anatomical Collection Method Collection Time Re ceived Time Location / / Volume Laterality 08/30/2011 3:07 PM LAW FIRM ADMINISTRATOR Historical Provider LAB HISTORICAL ORDERS Performing Organization Address [facility] Phon e Number [facility] HX CHLAMYDIA TRACHOMATIS AMPLIFIED DNA-ID (08/30/2011 3:07 PM LAW FIRM ADMINISTRATOR) Specimen (Source) Anatomical Collection Method Collection Time Re ceived Time Location / / Volume Laterality 08/30/2011 3:07 PM LAW FIRM ADMINISTRATOR Narrative [facility] - 10/23/19 14 7:05 PM LAW FIRM ADMINISTRATOR Negative for C. trachomatis rRNA by wire turning machine operator mediated amplification. A negative result by wire turning machine operator media pipe amplification does not preclude the presence of C. trachomatis infection bec ause results are dependent on proper and adequate collection, absence of inhi bitors, and sufficient rRNA to be detected. Historical Provider LAB HISTORICAL ORDERS Performing Organization Address City/[facility]/ZIP Code Phon e Number [facility] HX SN - SPEC - DESCRIPTION (08/30/2011 3:07 PM LAW FIRM ADMINISTRATOR) [facility] [employer] Method Time Signature HXSPECIMAN Endocervical [facility] Specimen (Source) Anatomical Collection Method Collection Time Re ceived Time Location / / Volume Laterality 08/30/2011 3:07 PM LAW FIRM ADMINISTRATOR Historical Provider LAB HISTORICAL ORDERS Performing Organization Address City/[facility]/ZIP Code Phon e Number [facility] documented in this encounter Visit Diagnoses Not on filedocumented in this encounter
--- OUTSIDE RECORDS SUMMARY | 2022-07-29 08:33 | XMS_ITS | Encounter Summary ---
:1985 Author Organization [facility] Address [address] [place] [address] Care Team Providers Name Role Phone Unavailable Primary Care Provider Unavailable Encounter Details Date Type Department Care Team Description 07/15/2010 Hospital Encounter [facility] Provider, [facility] Social History Tobacco Use Types Packs/Day [...] How often do you attend lutheran or anabaptist More than 4 time s [...] Provider Ser - 07/15/2010 12:00 AM CST [id number] TELEPHONE TRIAGE ENCOUNTER FORM Date: 07/15/2010 PCP: Venu Yousif MD, MD Patient Name: Carol Juarez Gender: female : 1985 Age: [age] year old Time: 4:45 PM Phone Numbers: [phone] (home) Pharmacy: [facility] ASSESSMENT Presenting Problem: Depression Subjective/objective: Patient is [...] way prior to scheduled appointment time. Source: [facility] RWHXTRANSXRTFSYS Document Id: [id number] documented in this encounter Plan of Treatment Not on filedocumented as of this encounter Visit Diagnoses Not on filedocumented in this encounter
--- OUTSIDE RECORDS SUMMARY | 2022-07-29 08:33 | XMS_ITS | Encounter Summary ---
:1985 Author Organization [facility] Address [address] [place] [address] Care Team Providers Name Role Phone Unavailable [...] often do you attend oriental orthodox or lutheran More than 4 time s [...]
--- OUTSIDE RECORDS SUMMARY | 2022-07-29 08:33 | XMS_ITS | Encounter Summary ---
:[address] [facility] Address [address] [place] [address] Care Team Providers Name Role Phone Unavailable [...]
--- OUTSIDE RECORDS SUMMARY | 2022-07-29 08:33 | XMS_ITS | Encounter Summary ---
:1985 Author Organization [facility] Address [address] [place] [address] Care Team Providers Name Role Phone Unavailable [...] How often do you attend anabaptism or gnosticist More than 4 time s [...] Gregory Grewal - 10/13/2010 5:00 PM CST [id number] Adult female smoker had a fever yesterday [...] HENOK Garcia/jayson Source: [facility] RWHXTRANSXSYS Document Id: [id number] documented in this encounter Plan of Treatment Not on filedocumented as of this encounter Visit Diagnoses Not on filedocumented in this encounter
--- OUTSIDE RECORDS SUMMARY | 2022-07-29 08:33 | XMS_ITS | Encounter Summary ---
:1985 Author Organization [facility] Address [address] [place] [address] Care Team Providers Name Role Phone Unavailable [...] How often do you attend jain or denominational More than 4 time s [...]
--- OUTSIDE RECORDS SUMMARY | 2022-07-29 08:33 | XMS_ITS | Encounter Summary ---
:1985 Author Organization [facility] Address [address] [place] [address] Care Team Providers Name Role Phone Unavailable Primary Care Provider Unavailable Encounter Details Date Type Department Care Team Description 02/17/2010 Hospital Encounter HX NO MAPPING Berny Garcia M.D. [address] [place], [place] [phone] (Wo rk) Social History [...] How often do you attend religion or lutheran More than 4 time s [...]
--- OUTSIDE RECORDS SUMMARY | 2022-07-29 08:33 | XMS_ITS | Encounter Summary ---
:1985 Author Organization [facility] Address [address] [place] [address] Care Team Providers Name Role Phone Unavailable [...] How often do you attend mormonism or worship More than 4 time s [...]
--- OUTSIDE RECORDS SUMMARY | 2022-07-29 08:33 | XMS_ITS | Encounter Summary ---
:1985 Author Organization [facility] Address [address] [place] [address] Care Team Providers Name Role Phone Unavailable [...]
--- OUTSIDE RECORDS SUMMARY | 2022-07-29 08:33 | XMS_ITS | Encounter Summary ---
:1985 Author Organization [facility] Address [address] [place] [address] Care Team Providers Name Role Phone Unavailable [...] How often do you attend nondenominational or anabaptism More than 4 time s [...] Historical Provider Ser - 08/17/2011 12:00 AM CUSTOMER EXPERIENCE INTERN [id number]-ESU LETTER Carol Juarez [facility] [address] [facility] [id number] [facility] August 17, 2011 Dear Carol: Our records indicate that you recently cancelled your appointment with Kaye Magallanes, Ph.D., L.P.. Thank you for notifying our office. Your next scheduled appointment is: August at 3:00 PM If you are unable to keep this appointment, please call the [facility] Department at your earliest convenience at or toll-free at to or cancel or reschedule. We look forward to hearing from you. Thank you, [facility] Source: [facility] Document Id: [id number] documented in this encounter Plan of Treatment Not on filedocumented as of this encounter Visit Diagnoses Not on filedocumented in this encounter
--- OUTSIDE RECORDS SUMMARY | 2022-07-29 08:33 | XMS_ITS | Encounter Summary ---
:1985 Author Organization [facility] Address [address] [place] [address] Care Team Providers Name Role Phone Unavailable [...]
--- OUTSIDE RECORDS SUMMARY | 2022-07-29 08:33 | XMS_ITS | Encounter Summary ---
:1985 Author Organization [facility] Address [address] [place] [address] Care Team Providers Name Role Phone Unavailable [...] How often do you attend taoism or quaker More than 4 time s [...]
--- OUTSIDE RECORDS SUMMARY | 2022-07-29 08:33 | XMS_ITS | Encounter Summary ---
:1985 Author Organization [facility] Address [address] [place] [address] Care Team Providers Name Role Phone Unavailable [...] How often do you attend denominational or sabianism More than 4 time s [...] Historical Provider Ser - 07/16/2010 12:00 AM RESEARCH ENGINEER [id number] LETTER Carol Juarez [address] [address] [facility] [address] [facility] July 16, 2010 Dear Carol: Thank you for requesting an appointment for services at the [facility] Behavioral Health Department. Initial 45 minute appointments have been scheduled in our Psychology Department with: Kaye Magallanes, Ph.D., L.P. Sunday, August 01, 2010 at 11:00 AM Wednesday, August 29, 2010 at 10:00 AM Wednesday, September 12, 2010 at 11:00 AM located on the 3rd floor: [facility] ([facility]) at [address] [place] [address]. If the above scheduled appointment is not [...] be a pleasant and worthwhile one. Sincerely, [facility] Behavioral Health Contact Information July 16, 2010 Intake done by: Humaira EMR#: [id number] NAME: Carol Juarez SSN: [id number] : 1985 Age: [age] year old Sex: female Spouse/ S.O.: - Parent/Guardian: - ADDRESS: [address] [place] [address] [place] Phone Numbers: [phone] (home) Phone Contact: Home: Yes Messages: Yes Written Contact: Home: Yes Work: No Payor: [employer] Plan: [facility] Product Type: Indemnity Court Ordered/Litigation No Referral Information Caller: self Referred by: elie Location: Referred to: monty Prior Contact with [facility]? No Date: - Doctor seen: NA Reason: [...] Packet Sent on Wait List No Source: [facility] RWHXTRANSXRTFSYS Document Id: [id number] documented in this encounter Plan of Treatment Not on filedocumented as of this encounter Visit Diagnoses Not on filedocumented in this encounter
--- OUTSIDE RECORDS SUMMARY | 2022-07-29 08:33 | XMS_ITS | Encounter Summary ---
:1985 Author Organization [facility] Address [address] [place] [address] Care Team Providers Name Role Phone Unavailable [...] How often do you attend muslim or moravian More than 4 time s [...] Provider Ser - 02/17/2011 12:00 AM CDT [id number] LETTER Carol Juarez [address] [address] [facility] [address] [facility] February 17, 2011 Dear [...] please call at your earliest convenience at [phone] or, toll-free at . Thank you, [facility] Behavioral Health Source: [facility] Document Id: [id number] documented in this encounter Plan of Treatment Not on filedocumented as of this encounter Visit Diagnoses Not on filedocumented in this encounter
--- OUTSIDE RECORDS SUMMARY | 2022-07-29 08:33 | XMS_ITS | Encounter Summary ---
:1985 Author Organization [facility] Address [address] [place] [address] Care Team Providers Name Role Phone Unavailable [...] often do you attend oriental orthodox or voodoo More than 4 time s [...]
--- OUTSIDE RECORDS SUMMARY | 2022-07-29 08:33 | XMS_ITS | Encounter Summary ---
:1985 Author Organization [facility] Address [address] [place] [address] Care Team Providers Name Role Phone Unavailable [...] How often do you attend muslim or yarsanism More than 4 time s [...] Provider Ser - 11/13/2010 12:00 AM CDT [id number] MARIA T Juarez [address] [address] [facility] [address] [facility] November 13, 2010 Dear Carol: Our records indicate that you recently cancelled your appointment with Kaye Magallanes, Ph.D., L.P.. Thank you for notifying our office. Your next scheduled appointment is: Sunday, November 28, 2010 at 11:00 AM If you are unable to keep this appointment, please call the [facility] Health Department at your earliest convenience at or toll-free at to or cancel or reschedule. We look forward to hearing from you. Thank you, [facility] Health Source: [facility] Document Id: [id number] documented in this encounter Plan of Treatment Not on filedocumented as of this encounter Visit Diagnoses Not on filedocumented in this encounter
--- OUTSIDE RECORDS SUMMARY | 2022-07-29 08:33 | XMS_ITS | Encounter Summary ---
:1985 Author Organization [facility] Address [address] [place] [address] Care Team Providers Name Role Phone Unavailable [...] How often do you attend evangelical or methodist More than 4 time s [...]
--- OUTSIDE RECORDS SUMMARY | 2022-07-29 08:33 | XMS_ITS | Encounter Summary ---
:1985 Author Organization [facility] Address [address] [place] [address] Care Team Providers Name Role Phone Unavailable [...] How often do you attend mormonism or adventism More than 4 time s [...]
--- OUTSIDE RECORDS SUMMARY | 2022-07-29 08:33 | XMS_ITS | Encounter Summary ---
:[address] [facility] Address [address] [place] [address] Care Team Providers Name Role Phone Unavailable [...] How often do you attend judaism or holiness More than 4 time s [...]
--- OUTSIDE RECORDS SUMMARY | 2022-07-29 08:33 | XMS_ITS | Encounter Summary ---
:1985 Author Organization [facility] Address [address] [place] [address] Care Team Providers Name Role Phone Unavailable [...] How often do you attend advent or mandaen More than 4 time s [...]
--- OUTSIDE RECORDS SUMMARY | 2022-07-29 08:33 | XMS_ITS | Encounter Summary ---
:1985 Author Organization [facility] Address [address] [place] [address] Care Team Providers Name Role Phone Unavailable Primary Care Provider Unavailable Encounter Details Date Type Department Care Team Description 08/28/2010 Hospital Encounter [facility] Yamel Koch M.D. [address] [place] [address] (Wo rk) Social History Tobacco [...] How often do you attend cheondoism or judaism More than 4 time s [...] Giang M.D. - 08/28/2010 8:30 AM CST [id number] Chief Complaint: Chief Complaint Patient presents with [...] Wellbutrin. follow up in 1 month. Source: [facility] RWMCHXTRANSXRTFSYS Document Id: [id number] documented in this encounter Plan of Treatment Not on filedocumented as of this encounter Visit Diagnoses Not on filedocumented in this encounter
--- OUTSIDE RECORDS SUMMARY | 2022-07-29 08:33 | XMS_ITS | Encounter Summary ---
:1985 Author Organization [facility] Address [address] [place] [address] Care Team Providers Name Role Phone Unavailable Primary Care Provider Unavailable Encounter Details Date Type Department Care Team Description 06/11/2010 Hospital Encounter [facility]X [facility] Yamel Koch M.D. [address] [place] [address] (Wo rk) Social History Tobacco [...] How often do you attend pentecostalism or orthodox More than 4 time s [...] Giang M.D. - 06/11/2010 2:45 PM CDT [id number] Chief Complaint: Chief Complaint Patient presents with [...] squeezing or trying to pop this. Source: [facility] RWMCHXTRANSXRTFSYS Document Id: [id number] Electronically signed by Conversion, [facility] Building Coordinator [id number] at 01/24/2017 12:32 PM CDT documented in this encounter Plan of Treatment Not on filedocumented as of this encounter Visit Diagnoses Not on filedocumented in this encounter
--- OUTSIDE RECORDS SUMMARY | 2022-07-29 08:33 | XMS_ITS | Encounter Summary ---
:1985 Author Organization [facility] Address [address] [place] [address] Care Team Providers Name Role Phone Unavailable Primary Care Provider Unavailable Encounter Details Date Type Department Care Team Description 07/16/2010 Hospital Encounter [facility]X [facility] Yamel Koch M.D. [address] [place] [address] (Wo rk) Social History [...] How often do you attend hinduism or denominational More than 4 time s [...] Giang M.D. - 07/16/2010 10:30 AM CST [id number] Chief Complaint: Chief Complaint Patient presents with [...] psychotherapy. follow up in 1 month. Source: [facility] RWMCHXTRANSXRTFSYS Document Id: [id number] Electronically signed by Roland, [facility] Tobacco Hanger [id number] at 01/24/2017 1:07 PM CDT documented in this encounter Plan of Treatment Not on filedocumented as of this encounter Visit Diagnoses Not on filedocumented in this encounter
--- OUTSIDE RECORDS SUMMARY | 2022-07-29 08:33 | XMS_ITS | Encounter Summary ---
:1985 Author Organization [facility] Address [address] [place] [address] Care Team Providers Name Role Phone Unavailable Primary Care Provider Unavailable Encounter Details Date Type Department Care Team Description 01/06/2011 Hospital Encounter [facility] Yamel Koch M.D. [address] [place] [address] (Wo rk) Social History Tobacco [...] often do you attend oriental orthodox or uatsdin More than 4 time s [...] Giang M.D. - 01/06/2011 10:45 AM CDT [id number] Chief Complaint Patient presents with Headache talk [...] future for headaches, if not improved. Source: [facility] Document Id: [id number] documented in this encounter Plan of Treatment Not on filedocumented as of this encounter Visit Diagnoses Not on filedocumented in this encounter
--- OUTSIDE RECORDS SUMMARY | 2022-07-29 08:33 | XMS_ITS | Encounter Summary ---
:1985 Author Organization [facility] Address [address] [place] [address] Care Team Providers Name Role Phone Unavailable Primary Care Provider Unavailable Encounter Details Date Type Department Care Team Description 09/29/2010 Hospital Encounter [facility]X [facility] Yamel Koch M.D. [address] [place] [address] (Wo rk) Social History Tobacco [...] How often do you attend quaker or orthodoxy More than 4 time s [...] Giang M.D. - 09/29/2010 9:00 AM CST [id number] Chief Complaint: Chief Complaint Patient presents with [...] Rating was 13, which is improved. Source: [facility] RWMCHXTRANSXRTFSYS Document Id: [id number] Electronically signed by Roland, [facility] Assistant Merchandiser [id number] at 01/23/2017 9:40 PM CDT documented in this encounter Plan of Treatment Not on filedocumented as of this encounter Visit Diagnoses Not on filedocumented in this encounter
--- OUTSIDE RECORDS SUMMARY | 2022-07-29 08:33 | XMS_ITS | Encounter Summary ---
:1985 Author Organization [facility] Address [address] [place] [address] Care Team Providers Name Role Phone Unavailable Primary Care Provider Unavailable Encounter Details Date Type Department Care Team Description 08/28/2011 Hospital Encounter [facility] Celia Schwab RRoverto Social History Tobacco [...] How often do you attend sikhism or presybeterian More than 4 time s [...] Dejesus R.N. - 08/28/2011 12:00 AM CST [id number] Appointment requested for: check my IUD Subjective [...] Obstetrics &Gynecology page 261, 264 Appointment scheduled: residential appraiser today Source: [facility] RWHXTRANSXRTFSYS Document Id: [id number] Electronically signed by Roland, [facility] Nurse [id number] at 01/23/2017 2:30 PM CDT documented in this encounter Plan of Treatment Not on filedocumented as of this encounter Visit Diagnoses Not on filedocumented in this encounter
--- OUTSIDE RECORDS SUMMARY | 2022-07-29 08:33 | XMS_ITS | Encounter Summary ---
:1985 Author Organization [facility] Address [address] [place] [address] Care Team Providers Name Role Phone Unavailable Primary Care Provider Unavailable Encounter Details Date Type Department Care Team Description 06/02/2010 Hospital Encounter [facility] Ysabel Reyes R.NBrittaney [address] [address] Social History Tobacco Use Types [...] Reyes R.N. - 06/02/2010 12:00 AM CDT [id number] Situation/What is the patients concern/need: N/v diarrhea, [...] Request: Apt with provider for headache. Source: [facility] Document Id: [id number] documented in this encounter Plan of Treatment Not on filedocumented as of this encounter Visit Diagnoses Not on filedocumented in this encounter
--- OUTSIDE RECORDS SUMMARY | 2022-07-29 08:34 | XMS_ITS | Encounter Summary ---
:1985 Author Organization [facility] Address [address] [place] [address] Care Team Providers Name Role Phone Unavailable [...] How often do you attend evangelical or tenriism More than 4 time s [...] Provider Ser - 2007 10:20 AM CDT [id number] [facility] Document Id: [id number] Miscellaneous - Conversion, Historical Provider Ser - 2007 10:20 AM CDT [id number] [facility] [address] [facility], [address] Name: Carol Juarez Birthdate: 1985 SSN: [id number] [facility] Allergy: No known allergies Discharge Date: 2007 [...] as above Diet: regular Appointment(s): To call [phone] by 5 pm to verify that you [...] documentation info: (time, how & by). Source: [facility] RWHXTRANSXRTFSYS Document Id: [id number] Miscellaneous - Conversion, Historical Provider Ser - 2007 10:20 AM CDT [id number] [address] [place] [address] Name: Carol Juarez Birthdate: 1985 SSN: [id number] [facility] Allergy: No known allergies Discharge Date: 2007 Obstetrical Discharge Instructions Information given to patient: [facility] Immunization - {YES-NO Default Yes:4444::Yes} Notice of Phone Call / Classes - {YES-NO Default Yes:4444::Yes} Parenting Newsletter - {YES-NO Default Yes:4444::Yes} Public Health Referral - {YES-NO Default Yes:4444::Yes} Social Work Services Referral - {YES-NO Default Yes:4444::Yes} -Information for Medical Records - {YES-NO Default Yes:4444::Yes} Discharged to: Home. Activities: {ACTIVITY HOSPITAL:227584::-Up as tolerated} Medications: {:PLEASE INCLUDE THE TIME [...] documented {:time}. Nursing Instructions: { OB HOSP NM NURSE INSTRUCT:006293::Nothing per Vagina for 6 weeks, As instructed by your provider.} Diet: { OB [facility] DIET:613784} Appointment(s): Mother's Appointment: To see . Baby's [...] documentation info: (time, how & by). Source: [facility] RWMCHXTRANSXRTFSYS Document Id: [id number] documented in this encounter Plan of Treatment Not on filedocumented as of this encounter Visit Diagnoses Not on filedocumented in this encounter
--- OUTSIDE RECORDS SUMMARY | 2022-07-29 08:34 | XMS_ITS | Encounter Summary ---
:1985 Author Organization [facility] Address [address] [place] [address] Care Team Providers Name Role Phone Unavailable Primary Care Provider Unavailable Encounter Details Date Type Department Care Team Description 10/03/[address] 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 Source: [facility] RWHXTRANSXRTFSYS Document Id: [id number] documented in this encounter Plan of Treatment Not on filedocumented as of this encounter Visit Diagnoses Not on filedocumented in this encounter
--- OUTSIDE RECORDS SUMMARY | 2022-07-29 08:34 | XMS_ITS | Encounter Summary ---
:1985 Author Organization [facility] Address [address] [place] [address] Care Team Providers Name Role Phone Unavailable Primary Care Provider Unavailable Encounter Details Date Type Department Care Team Description 05/19/2009 Hospital Encounter [facility] INPT/OBSRV Chon Babin M.D. [address] [place], [place] [id number] (Wo rk) Social History Tobacco Use Types [...] How often do you attend druze or bahai More than 4 time s [...]
--- OUTSIDE RECORDS SUMMARY | 2022-07-29 08:34 | XMS_ITS | Encounter Summary ---
:1985 Author Organization [facility] Address [address] [place] [address] Care Team Providers Name Role Phone Unavailable [...]
--- OUTSIDE RECORDS SUMMARY | 2022-07-29 08:34 | XMS_ITS | Encounter Summary ---
:1985 Author Organization [facility] Address [address] [place] [address] Care Team Providers Name Role Phone Unavailable Primary Care Provider Unavailable Encounter Details Date Type Department Care Team Description 06/04/2008 Hospital [facility] INPT/OBSRV Neema Nieves M.D. Social History Tobacco [...]
--- OUTSIDE RECORDS SUMMARY | 2022-07-29 08:34 | XMS_ITS | Encounter Summary ---
:1985 Author Organization [facility] Address [address] [place] [address] Care Team Providers Name Role Phone Unavailable [...] How often do you attend sikhism or scientology More than 4 time s [...]
--- OUTSIDE RECORDS SUMMARY | 2022-07-29 08:34 | XMS_ITS | Encounter Summary ---
:[address] [facility] Address [address] [place] [address] Care Team Providers Name Role Phone Unavailable Primary Care Provider Unavailable Encounter Details Date Type Department Care Team Description 10/30/2008 Hospital [facility] Casi Vo M.D. [address] [place], [place] [address] (Wo rk) Social History [...] How often do you attend protestant or anglican More than 4 time s [...] Grove M.D. - 10/30/2008 2:30 PM CDT [id number] Carol is a 22 year old here for her annual exam. 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 Declines Chl screen (monogamous) Health maintenance includes: pap smear done today and smoking cessation. Source: [facility] Document Id: [id number] documented in this encounter Miscellaneous Notes Miscellaneous - Conversion, Historical Provider Ser - 10/30/2008 2:30 PM CDT [id number] Carol Juarez [address] [place] [id number] November 01, 2008 Dear Carol Juarez, I am happy to inform you that your recent cervical cancer screening test (PAP smear) was normal. Preventative screening such as this helps insure your health for years to come. Congratulations for taking care of yourself! Please contact my office if you have any further questions. [phone]. Sincerely, Ann Grove M.D. OBSTETRICS/GYNECOLOGY [facility] Source: [facility] Document Id: [id number] documented in this encounter Plan of Treatment Not on filedocumented as of this encounter Visit Diagnoses Not on filedocumented in this encounter
--- OUTSIDE RECORDS SUMMARY | 2022-07-29 08:34 | XMS_ITS | Encounter Summary ---
:1985 Author Organization [facility] Address [address] [place] [address] Care Team Providers Name Role Phone Unavailable Primary Care Provider Unavailable Encounter Details Date Type Department Care Team Description 02/06/2008 Hospital Encounter [facility]X [facility] Marisol Galaviz, APR N, C.N.P. [address] [place], [place] [address] (Wo rk) Social History [...] How often do you attend cheondoism or yazidism More than 4 time s [...] C.NLebron., R.N. - 02/06/2008 1:00 PM CDT [id number] Carol is here for a 6-week checkup. [...] and symptoms of infection were discussed. Source: [facility] RWHXTRANSXRTFSYS Document Id: [id number] documented in this encounter Miscellaneous Notes Miscellaneous - Marisol Irving C.N.P., R.N. - 02/06/2008 1:00 PM CDT [id number] Date: 02/06/2008 Name: Carol Juarez Birthdate: 1985 The patient was seen at: [facility] today Restrictions if any: Able to work unrestricted as of today. Marisol Irving RN, BENDING PRESS OPERATOR OBSTETRICS/GYNECOLOGY [facility] Source: [facility] RWHXTRANSXRTFSYS Document Id: [id number] documented in this encounter Plan of Treatment Not on filedocumented as of this encounter Visit Diagnoses Not on filedocumented in this encounter
--- OUTSIDE RECORDS SUMMARY | 2022-07-29 08:34 | XMS_ITS | Encounter Summary ---
:1985 Author Organization [facility] Address [address] [place] [address] Care Team Providers Name Role Phone Unavailable Primary Care Provider Unavailable Encounter Details Date Type Department Care Team Description 10/03/2008 Hospital Encounter [facility] Provider, [facility] Social History Tobacco Use Types Packs/Day [...] How often do you attend jain or jew More than 4 time s [...] Provider Ser - 10/03/2008 12:00 AM CST [id number] TELEPHONE TRIAGE ENCOUNTER FORM Date: 10/03/2008 PCP: Venu Yousif MD, MD Patient Name: Carol Juarez Gender: female : 1985 Age: [age] year old Time: 11:35 AM Phone Numbers: [phone] (home) Pharmacy: [facility] [place] ASSESSMENT Presenting Problem: Skin infection/left hand [...] FOLLOW-UP Will see Eddie Mcnair today. Source: [facility] RWHXTRANSXRTFSYS Document Id: [id number] documented in this encounter Plan of Treatment Not on filedocumented as of this encounter Visit Diagnoses Not on filedocumented in this encounter
--- OUTSIDE RECORDS SUMMARY | 2022-07-29 08:34 | XMS_ITS | Encounter Summary ---
:1985 Author Organization [facility] Address [address] [place] [address] Care Team Providers Name Role Phone Unavailable Primary Care Provider Unavailable Encounter Details Date Type Department Care Team Description 05/19/2009 Hospital Encounter [facility] INPT/OBSRV Chon Babin M.D. [address] [place], [place] [phone] (Wo rk) Social History Tobacco Use Types [...] How often do you attend episcopalian or mu-ism More than 4 time s [...]
--- OUTSIDE RECORDS SUMMARY | 2022-07-29 08:34 | XMS_ITS | Encounter Summary ---
:1985 Author Organization [facility] Address [address] [place] [address] Care Team Providers Name Role Phone Unavailable Primary Care Provider Unavailable Encounter Details Date Type Department Care Team Description 12/14/2007 Hospital En[facility] OBGYN Provider, Histor ical Social History [...] How often do you attend cheondoism or taoism More than 4 time s [...] Provider Ser - 12/14/2007 9:45 AM CDT [id number] No complaints, exam normal KRN No regular contractions KRN [facility] Document Id: [id number] documented in this encounter Plan of Treatment Not on filedocumented as of this encounter Visit Diagnoses Not on filedocumented in this encounter
--- OUTSIDE RECORDS SUMMARY | 2022-07-29 08:34 | XMS_ITS | Encounter Summary ---
:1985 Author Organization [facility] Address [address] [place] [address] Care Team Providers Name Role Phone Unavailable [...] How often do you attend holiness or restorationist More than 4 time s [...] Provider Ser - 12/27/2007 7:10 PM CDT [id number] [facility]: [facility] Document Id: [id number] documented in this encounter Plan of Treatment Not on filedocumented as of this encounter Visit Diagnoses Not on filedocumented in this encounter
--- OUTSIDE RECORDS SUMMARY | 2022-07-29 08:34 | XMS_ITS | Encounter Summary ---
:1985 Author Organization [facility] Address [address] [place] [address] Care Team Providers Name Role Phone Unavailable [...] How often do you attend advent or baptist More than 4 time s [...] Kinney M.D. - 01/02/2008 10:25 AM CDT [id number] [facility] [address] [facility], [address] Name: Carol Juarez Birthdate: 1985 Hospital Medical [...] patient - less than [address] Mairaelena Kinney 01/06/2008 Source: [facility] RWMCHXTRANSXRTFSYS Document Id: [id number] Electronically signed by [facility], [facility] Buggy Man [id number] at 01/25/2017 4:45 AM CDT Miscellaneous - Conversion, Historical Provider Ser - 01/02/2008 10:25 AM CDT [id number] [address] [place] [address] Name: Carol Juarez Birthdate: 1985 SSN: [id number] [facility] Allergy: No known allergies Discharge Date: 01/06/2008 Obstetrical Discharge Instructions Information given to [facility]: [facility] Immunization - Yes Notice of Phone Call [...] documentation info: (time, how & by). Source: [facility] RWHXTRANSXRTFSYS Document Id: [id number] documented in this encounter Plan of Treatment Not on filedocumented as of this encounter Visit Diagnoses Not on filedocumented in this encounter
--- OUTSIDE RECORDS SUMMARY | 2022-07-29 08:34 | XMS_ITS | Encounter Summary ---
:1985 Author Organization [facility] Address [address] [place] [address] Care Team Providers Name Role Phone Unavailable Primary Care Provider Unavailable Encounter Details Date Type Department Care Team Description 11/21/2007 Hospital Encounter HX [facility] Yamel Koch M.D. [address] [place] [address] (Wo rk) Social History Tobacco [...] How often do you attend druze or scientologist More than 4 time s [...] Yousif M.D. 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 She is from [place]. She has not tried any medications for [...] delivers. PCN/analia/mp Source: [facility] RWMCHXTRANSXRTFSYS Document Id: [id number] documented in this encounter Plan of Treatment Not on filedocumented as of this encounter Visit Diagnoses Not on filedocumented in this encounter
--- OUTSIDE RECORDS SUMMARY | 2022-07-29 08:34 | XMS_ITS | Encounter Summary ---
:1985 Author Organization [facility] Address [address] [place] [address] Care Team Providers Name Role Phone Unavailable Primary Care Provider Unavailable Encounter Details Date Type Department Care Team Description 11/25/2007 Hospital Encounter HX [facility] OBGYN Provider, Histor ical Social [...] How often do you attend anabaptism or confucianism More than 4 time s [...] Provider Ser - 11/25/2007 2:00 PM CDT [id number] Gestational Age: 35w 2d, recheck b/p, has a lot of pelvic pressure, has some leakage after she voids,JZ No sx pree. Repeat bp 122/80. Nitrazine negative. No ctx/vb. Decreased movement. BPP performed in clinic ANA LUISA 16cm. +2 breathing, +2 flexion/extension, +2 gross movement, +2 fluid = 88 Source: [facility] RWHXTRANSXRTFSYS Document Id: [id number] documented in this encounter Plan of Treatment Not on filedocumented as of this encounter Visit Diagnoses Not on filedocumented in this encounter
--- OUTSIDE RECORDS SUMMARY | 2022-07-29 08:34 | XMS_ITS | Encounter Summary ---
:1985 Author Organization [facility] Address [address] [place] [address] Care Team Providers Name Role Phone Unavailable [...] How often do you attend catholic or pentecostalism More than 4 time [...] Provider Ser - 12/30/2007 7:10 AM CDT [id number] Source: [facility] Document Id: [id number] Miscellaneous - Conversion, Historical Provider Ser - 12/30/2007 7:10 AM CDT [id number] December 30, 2007 Carol Dowell [place] [id number] OB Admit History & Physical 2007 Carol [...] Years of Education: 13 Occupational History [employer] Social History Main Topics [...] Negative GI: Negative BREAST: Negative : Negative AIR 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 Cephalic presentation confirmed. A/P: 21 y/o @ 40w2 (10) with: 1. IOL: Will proceed with 2nd attempt at induction with pitocin. 2. Gestational HTN: No e/o pree. Bp OK today. Will follow 3. GBS negative 4. status reassuring. Rylee Grijalva MD Dept of POLYMER CHEMIST Source: [facility] Document Id: [id number] Miscellaneous - Conversion, Historical Provider Ser - 12/30/2007 7:10 AM CDT [id number] [facility] [address] [facility], [address] Name: Carol Juarez Birthdate: 1985 [facility] Admission Date: 12/30/2007 Allergy: No known [...] minutes. Dr. Rylee Grijalva MD 12/30/2007 Source: [facility] RWHXTRANSXRTFSYS Document Id: [id number] Miscellaneous - Conversion, Historical Provider Ser - 12/30/2007 7:10 AM CDT [id number] [facility] [address] [facility], [address] Name: Carol Juarez Birthdate: 1985 SSN: [id number] [facility] Allergy: No known allergies Discharge [...] water breaks Diet: regular Appointment(s): Please call [phone] on Wednesday for an appt. Make appt for Wednesday01/02/08 forOB check and NST. I have all of my belongings . I understand my discharge instructions. My medications were reviewed with me. Patient's Signature: Nurse Discharging this patient signature: RN Signature & Date: Spencer Schuster RN Date: 12/30/2007 Please see paper chart for additional discharge documentation info: (time, how & by). Source: [facility] RWHXTRANSXRTFSYS Document Id: [id number] documented in this encounter Plan of Treatment Not on filedocumented as of this encounter Visit Diagnoses Not on filedocumented in this encounter
--- OUTSIDE RECORDS SUMMARY | 2022-07-29 08:34 | XMS_ITS | Encounter Summary ---
:1985 Author Organization [facility] Address [address] [place] [address] Care Team Providers Name Role Phone Unavailable Primary Care Provider Unavailable Encounter Details Date Type Department Care Team Description 12/21/2007 Hospital Encounter [facility]X [facility] Casi Vo M.D. [address] [place], [place] [phone] (Wo rk) Social [...] How often do you attend gnosticism or voodoo More than 4 time s [...] Grove M.D. - 12/21/2007 10:15 AM CDT [id number] Repeat BP 132/80. Has 2+ edema. No headache, visual changes Signs and symptoms of PIH discussed. Will follow up Mon with 24 hr urine and labs and appt. KG Source: [facility] RWMCHXTRANSXRTFSYS Document Id: [id number] documented in this encounter Plan of Treatment Not on filedocumented as of this encounter Visit Diagnoses Not on filedocumented in this encounter
--- OUTSIDE RECORDS SUMMARY | 2022-07-29 08:34 | XMS_ITS | Encounter Summary ---
:1985 Author Organization [facility] Address [address] [place] [address] Care Team Providers Name Role Phone Unavailable [...] How often do you attend gnosticist or anabaptism More than 4 time s [...]
--- OUTSIDE RECORDS SUMMARY | 2022-07-29 08:34 | XMS_ITS | Encounter Summary ---
:1985 Author Organization [facility] Address [address] [place] [address] Care Team Providers Name Role Phone Unavailable Primary Care Provider Unavailable Encounter Details Date Type Department Care Team Description 08/06/2009 Hospital Encounter [facility]X [facility] INPT/OBSRV Shari Diaz M.D. [address] [place], [place] [address] (Wo rk) Social History [...] How often do you attend sikh or jain More than 4 time s [...]
--- OUTSIDE RECORDS SUMMARY | 2022-07-29 08:34 | XMS_ITS | Encounter Summary ---
:1985 Author Organization [facility] Address [address] [place] [address] Care Team Providers Name Role Phone Unavailable Primary Care Provider Unavailable Encounter Details Date Type Department Care Team Description 11/21/2007 Hospital Encounter [facility] Casi Vo M.D. [address] [place], [place] [phone] (Wo rk) Social History [...] How often do you attend episcopalian or muslim More than 4 time s [...] Grove M.D. - 11/21/2007 2:00 PM CDT [id number] Gestational Age: 34w 5d C/O increased edema in feet and hands. BR Repeat BP 130/78 sitting. Reviewed S/S of PIH, will limit work to 8 hrs a day (now working 10hr) follow up in 4-5 days. KG Source: [facility] Document Id: [id number] Electronically signed by Conversion, [facility] Information Systems Administrator [id number] at 01/25/2017 1:26 AM CDT documented in this encounter Miscellaneous Notes Miscellaneous - Ann Grove M.D. - 11/21/2007 2:00 PM CDT [id number] Return to Work Release Date: 11/21/2007 Name: Carol Juarez Birthdate: 1985 The patient was seen at: [facility] today Restrictions if any: May work no more than 8 hrs due to complications. Ann Grove M.D. OBSTETRICS/GYNECOLOGY [facility] Source: [facility] Document Id: [id number] Electronically signed by Conversion, [facility] Information Systems Administrator [id number] at 01/25/2017 1:26 AM CDT documented in this encounter Plan of Treatment Not on filedocumented as of this encounter Visit Diagnoses Not on filedocumented in this encounter
--- OUTSIDE RECORDS SUMMARY | 2022-07-29 08:34 | XMS_ITS | Encounter Summary ---
:1985 Author Organization [facility] Address [address] [place] [address] Care Team Providers Name Role Phone Unavailable Primary Care Provider Unavailable Encounter Details Date Type Department Care Team Description 03/27/2009 Hospital En[facility] [...] How often do you attend rastafarian or temple More than 4 time s [...]
--- OUTSIDE RECORDS SUMMARY | 2022-07-29 08:34 | XMS_ITS | Encounter Summary ---
:1985 Author Organization [facility] Address [address] [place] [address] Care Team Providers Name Role Phone Unavailable [...] How often do you attend hoahaoism or orthodox More than 4 time s [...] Historical Provider Ser - 08/23/2008 12:00 AM PATHOLOGY LAB TECHNICIAN [id number] 07/02/2009 - Date of R/C request: 06-12-09 Records sent to: Care Delivery Management [facility] Bambi Oh RN - [address] [address] [place] [address] [facility] Description of Disclosure: 12-27-07 to 12-29-07. 12-30-07 to 12-30-07, 01-02-08 to 01-06-08 Purpose of Disclosure: insurance for payment audit Authorization: NO [facility]: [facility] Document Id: [id number] documented in this encounter Plan of Treatment Not on filedocumented as of this encounter Visit Diagnoses Not on filedocumented in this encounter
--- OUTSIDE RECORDS SUMMARY | 2022-07-29 08:34 | XMS_ITS | Encounter Summary ---
:1985 Author Organization [facility] Address [address] [place] [address] Care Team Providers Name Role Phone Unavailable Primary Care Provider Unavailable Encounter Details Date Type Department Care Team Description 02/04/2010 Hospital Encounter HX NO MAPPING Venu Yousif M.D. [address] [place], [place] [phone] (Wo rk) Social History [...] How often do you attend islam or presybeterian More than 4 time s [...]
--- OUTSIDE RECORDS SUMMARY | 2022-07-29 08:34 | XMS_ITS | Encounter Summary ---
:1985 Author Organization [facility] Address [address] [place] [address] Care Team Providers Name Role Phone Unavailable Primary Care Provider Unavailable Encounter Details Date Type Department Care Team Description 2007 Hospital Encounter [facility] OBGYN Provider, Histor ical Social History [...] How often do you attend congregational or hoahaoism More than 4 time s [...] Provider Ser - 2007 9:15 AM CDT [id number] Repeat bp 144/86. No sx pree. Amnisure, nitrazine negative. Will check PIH labs and obs on LD. [facility] Document Id: [id number] documented in this encounter Miscellaneous Notes Miscellaneous - Conversion, Historical Provider Ser - 2007 9:15 AM CDT [id number] 2007 Carol Juarez [id number] OB Admit History & Physical OB ADMIT [...] N/A Years of Education: 13 Occupational History [employer] Home Social History Main Topics Tobacco [...] Negative GI: Negative BREAST: Negative : Negative JOB TRAINING SPECIALIST: Negative CV: Negative PULMONARY: Negative MUSCULOSKELETAL: Negative [...] labs. Rylee Grijalva MD MD Dept of CLAY PRESS OPERATOR Source: [facility] Document Id: [id number] documented in this encounter Plan of Treatment Not on filedocumented as of this encounter Visit Diagnoses Not on filedocumented in this encounter
--- OUTSIDE RECORDS SUMMARY | 2022-07-29 08:34 | XMS_ITS | Encounter Summary ---
:1985 Author Organization [facility] Address [address] [place] [address] Care Team Providers Name Role Phone Unavailable Primary Care Provider Unavailable Encounter Details Date Type Department Care Team Description 11/07/2007 Hospital Encounter [facility]X [facility] OBGYN Provider, Histor ical Social History [...] How often do you attend hindu or holiness More than 4 time s [...] Provider Ser - 11/07/2007 10:30 AM CDT [id number] C/o pressure.TM Patient reassured Would like to be seen by primary for rash. Has depigmented areas on foreqrms bilaterally. Not rpesent on remainder of body. Has had prior to , no other symptoms. KRN Source: [facility] Document Id: [id number] documented in this encounter Plan of Treatment Not on filedocumented as of this encounter Visit Diagnoses Not on filedocumented in this encounter
--- OUTSIDE RECORDS SUMMARY | 2022-07-29 08:34 | XMS_ITS | Encounter Summary ---
:1985 Author Organization [facility] Address [address] [place] [address] Care Team Providers Name Role Phone Unavailable Primary Care Provider Unavailable Encounter Details Date Type Department Care Team Description 02/22/2009 Hospital Encounter HX NO MAPPING Rizwan Dean M.D. [address] [place], [place] [phone] (Wo rk) Social History [...] How often do you attend mosque or catholic More than 4 time s [...]
--- OUTSIDE RECORDS SUMMARY | 2022-07-29 08:34 | XMS_ITS | Encounter Summary ---
:1985 Author Organization [facility] Address [address] [place] [address] Care Team Providers Name Role Phone Unavailable Primary Care Provider Unavailable Encounter Details Date Type Department Care Team Description 01/09/2009 [facility] Yamel Koch M.D. [address] [place] [address] (Wo rk) Social History Tobacco [...] How often do you attend scientologist or congregational More than 4 time s [...] Yousif M.D. - 01/09/2009 3:00 PM CDT [id number] Comment: Plisse Machine Operator Chief Complaint Patient presents with Knee Pain [...] orKeflex is resistant to this. PCN/BTM/dac Source: [facility] RWMCHXTRANSXRTFSYS Document Id: [id number] Electronically signed by Conversion, [facility] Plisse Machine Operator [id number] at 01/24/2017 3:54 PM CDT documented in this encounter Plan of Treatment Not on filedocumented as of this encounter Visit Diagnoses Not on filedocumented in this encounter
--- OUTSIDE RECORDS SUMMARY | 2022-07-29 08:34 | XMS_ITS | Encounter Summary ---
:1985 Author Organization [facility] Address [address] [place] [address] Care Team Providers Name Role Phone Unavailable Primary Care Provider Unavailable Encounter Details Date Type Department Care Team Description 12/07/2007 Hospital Encounter [facility] Marisol Galaviz, APR N, C.N.P. [address] [place], [place] [phone] (Wo rk) Social History [...] How often do you attend zoroastrianism or shinto More than 4 time s [...] C.NBrittaneyP., R.N. - 12/07/2007 10:30 AM CDT [id number] Carol is here at Gestational Age: 37w. [...] Enc. to call with any concerns. Source: [facility] IN[facility]UTEX[facility]RTFS[facility] Document Id: [id number] Electronically signed by Conversion, [facility] Manager Community Outreach [id number] at 01/25/2017 2:07 AM CDT Marisol Irving C.N.P., R.N. - 12/07/2007 10:30 AM CDT [id number] Gestational Age: 37w GBS and HGB done today. plan and hospital arrival information given. C/O low back, leg and pelvic pain all the time. Hurts to stand more than 5 min at a time. BR Will limit work to 4 hours per day d/t increased edema. Warning signs discussed. FKC also discussed.ZENON Source: [facility]EX[facility]RT[facility] Document Id: [id number] Electronically signed by Conversion, [facility] Manager Community Outreach [id number] at 01/25/2017 2:07 AM CDT documented in this encounter Miscellaneous Notes Miscellaneous - Marisol Irving C.N.P., R.N. - 12/07/2007 10:30 AM CDT [id number] Date: 12/07/2007 Name: Carol Juarez Birthdate: 1985 The patient was seen at: [facility] today Restrictions if any: Please limit work to 4 hours per day. Marisol Irving RN, DIGITAL CONTROLS TECHNICAL OFFICER OBSTETRICS/GYNECOLOGY [facility] Source: [facility] RWMCHXTRANSXRTFSYS Document Id: [id number] Electronically signed by Conversion, [facility] Manager Community Outreach [id number] at 01/25/2017 2:07 AM CDT documented in this encounter Plan of Treatment Not on filedocumented as of this encounter Visit Diagnoses Not on filedocumented in this encounter
--- OUTSIDE RECORDS SUMMARY | 2022-07-29 08:34 | XMS_ITS | Encounter Summary ---
:1985 Author Organization [facility] Address [address] [place] [address] Care Team Providers Name Role Phone Unavailable Primary Care Provider Unavailable Encounter Details Date Type Department Care Team Description 02/04/2010 Hospital Encounter [facility] XRAY Provider, Histori huma [...] How often do you attend druze or quaker More than 4 time s [...] Yousif M.D. - 02/04/2010 11:00 AM CDT [id number] Quick Note: Nursing: please call patient to inform her the wet prep and ultrasound were both normal. Thanks. Source: [facility] RWMCHXTRANSXSYS Document Id: [id number] Electronically signed by Conversion, [facility] Lead Generation Marketing Manager [id number] at 01/24/2017 11:08 AM CDT documented in this encounter Plan of Treatment Not on filedocumented as of this encounter Visit Diagnoses Not on filedocumented in this encounter
--- OUTSIDE RECORDS SUMMARY | 2022-07-29 08:34 | XMS_ITS | Encounter Summary ---
:1985 Author Organization [facility] Address [address] [place] [address] Care Team Providers Name Role Phone Unavailable [...] How often do you attend pentecostalism or alevism More than 4 time s [...]
--- OUTSIDE RECORDS SUMMARY | 2022-07-29 08:34 | XMS_ITS | Encounter Summary ---
:1985 Author Organization [facility] Address [address] [place] [address] Care Team Providers Name Role Phone Unavailable Primary Care Provider Unavailable Encounter Details Date Type Department Care Team Description 01/20/2008 Hospital Encounter [facility] Adonis Weir M.D. [address] [place] [phone] (Wo rk) Social History Tobacco [...] How often do you attend confucianist or jew More than 4 time s [...] Hooks M.D. - 01/20/2008 10:45 AM CDT [id number] Carol is sent from Peds (there with [...] epigastric pain resolving Plan: Amylase, CBC [facility] RWHX[facility] Document Id: [id number] documented in this encounter Plan of Treatment Not on filedocumented as of this encounter Visit Diagnoses Not on filedocumented in this encounter
--- OUTSIDE RECORDS SUMMARY | 2022-07-29 08:35 | XMS_ITS | Encounter Summary ---
:1985 Author Organization [facility] Address [address] [place] [address] Care Team Providers Name Role Phone Unavailable [...] How often do you attend pentecostal or taoist More than 4 time s [...]
--- OUTSIDE RECORDS SUMMARY | 2022-07-29 08:35 | XMS_ITS | Encounter Summary ---
:1985 Author Organization [facility] Address [address] [place] [address] Care Team Providers Name Role Phone Unavailable Primary Care Provider Unavailable Encounter Details Date Type Department Care Team Description 10/10/2007 Hospital Encounter [facility] Adonis Weir M.D. [address] [place] [phone] (Wo rk) Social History Tobacco [...] Provider Ser - 10/10/2007 11:00 AM CST [id number] Gestational Age: 28w 5d Rhogam Injection given today. BR No concerns wds Source: [facility] RWHXTRANSXRTFSYS Document Id: [id number] documented in this encounter Plan of Treatment Not on filedocumented as of this encounter Visit Diagnoses Not on filedocumented in this encounter
--- OUTSIDE RECORDS SUMMARY | 2022-07-29 08:35 | XMS_ITS | Encounter Summary ---
:1985 Author Organization [facility] Address [address] [place] [address] Care Team Providers Name Role Phone Unavailable Primary Care Provider Unavailable Encounter Details Date Type Department Care Team Description 08/26/2007 Hospital Encounter [facility]X [facility] Casi Vo M.D. [address] [place], [place] [phone] (Wo rk) Social History [...] How often do you attend mosque or tenriism More than 4 time s [...] Grove M.D. - 08/26/2007 9:30 AM CST [id number] Less GERD, not taking it now. Had US today. KG [facility] Document Id: [id number] documented in this encounter Plan of Treatment Not on filedocumented as of this encounter Visit Diagnoses Not on filedocumented in this encounter
--- OUTSIDE RECORDS SUMMARY | 2022-07-29 08:35 | XMS_ITS | Encounter Summary ---
:1985 Author Organization [facility] Address [address] [place] [address] Care Team Providers Name Role Phone Unavailable Primary Care Provider Unavailable Encounter Details Date Type Department Care Team Description 09/28/2007 Hospital Encounter [facility] FAMILYPRA Dave Dela Cruz, R.N. Social [...] How often do you attend zoroastrian or moravian More than 4 time s [...] Cruz R.N. - 09/28/2007 12:00 AM CST [id number] Patient called reports that she was into [...] Patient agrees to plan or care. Source: [facility] RWHXTRANSXRTFSYS Document Id: [id number] Electronically signed by Conversion, [facility] Professor Of Spanish [id number] at 01/25/2017 12:10 AM CDT documented in this encounter Plan of Treatment Not on filedocumented as of this encounter Visit Diagnoses Not on filedocumented in this encounter
--- OUTSIDE RECORDS SUMMARY | 2022-07-29 08:35 | XMS_ITS | Encounter Summary ---
:1985 Author Organization [facility] Address [address] [place] [address] Care Team Providers Name Role Phone Unavailable Primary Care Provider Unavailable Encounter Details Date Type Department Care Team Description 06/27/2007 Hospital Encounter HX [facility] Marisol Galaviz, APR N, C.N.P. [address] [place], [place] [phone] (Wo rk) Social History [...] How often do you attend rastafarian or tenriism More than 4 time s [...] C.NLebron., R.N. - 06/27/2007 11:00 AM CST [id number] Addended by: MARISOL IRVING on: 06/29/2007 12:10:37 PM Modules accepted: Orders [facility] Document Id: [id number] Electronically signed by Conversion, [facility] Insulation Sprayer [id number] at 01/25/2017 10:01 AM CDT Conversion, Historical Provider Ser - 06/27/2007 11:00 AM CST [id number] Addended by: LORENZO ARIAS on: 06/29/2007 1:34:55 PM Modules accepted: Orders [facility] Document Id: [id number] Conversion, Historical Provider Ser - 06/27/2007 11:00 AM CST [id number] OK for message at home Genetic Screening: [...] to early sono done. She lives in [place] with mother. Carol has been feeling OK. She works at [employer]. Family is close and supportive. [facility]. Assessment: vitamins: Is taking them. Diet: Regular diet, no history of an eating disorder. Adequate calcium intake discussed. She has been referred to meet with the can solderer. Transportation issues: none Safe relationship: She feels safe in current relationship. She has no history of abusive relationhips. Financial Concerns: doing OK Insurance: applying for MD Social Service/Public Health: WIC She is a [...] call with any questions. Referrals: None Source: [facility] Document Id: [id number] Marisol Irving C.NBrittaneyP., R.N. - 06/27/2007 11:00 AM CST [id number] Body mass index is 40.11 kg/(m`2). Obesity protocol. 1 GTT with next visit. Early sono done for dates. Applying for MA, WIC, GCPH consult ordered. Quitting smoking. ZENON Source: [facility] Document Id: [id number] Electronically signed by Conversion, [facility] Insulation Sprayer [id number] at 01/25/2017 10:01 AM CDT documented in this encounter Miscellaneous Notes Miscellaneous - Conversion, Historical Provider Ser - 06/27/2007 11:00 AM TRUST MANAGER ASSISTANT [id number] Carol Juarez [address] [place] [phone] June 29, 2007 Dear Carol Juarez, I am happy to inform you that your recent cervical cancer screening test (PAP smear) was normal. Preventative screening such as this helps insure your health for years to come. Congratulations for taking care of yourself! Please contact my office if you have any further questions. [phone]. Sincerely, Marisol Irving RN, DIRECTOR [employer] [facility]/GYNECOLOGY [facility] Source: [facility] Document Id: [id number] Miscellaneous - Marisol Irving C.N.P., R.N. - 06/27/2007 11:00 AM CST [id number] Carol Juarez [address] [place] [phone] June 29, 2007 MR#: [id number] Dear Carol, I am happy to inform [...] free to give me a call at [phone]. Sincerely, Marisol Irving RN,DIRECTOR [employer] vmware architect [facility] Source: [facility] Document Id: [id number] Electronically signed by Conversion, [facility] Insulation Sprayer [id number] at 01/25/2017 10:01 AM CDT documented in this encounter Plan of Treatment Not on filedocumented as of this encounter Visit Diagnoses Not on filedocumented in this encounter
--- OUTSIDE RECORDS SUMMARY | 2022-07-29 08:35 | XMS_ITS | Encounter Summary ---
:1985 Author Organization [facility] Address [address] [place] [address] Care Team Providers Name Role Phone Unavailable Primary Care Provider Unavailable Encounter Details Date Type Department Care Team Description 09/28/2007 Hospital Encounter HX [facility] Manuel Paula P.A.-C., P.A. [address] [place] [address] (Wo rk) Social History Tobacco [...] Karey Lanza - 09/28/2007 8:30 AM CST [id number] SUBJECTIVE: Carol is a 21 year old [...] week or sooner if symptoms wrosen Source: [facility] Document Id: [id number] Electronically signed by Conversion, [facility] Grass Cutter [id number] at 01/25/2017 12:10 AM CDT documented in this encounter Miscellaneous Notes Miscellaneous - Karey Paula - 09/28/2007 8:30 AM CST [id number] Carol Juarez [address] [place] [phone] [id number] September 28, 2007 To whom it may concern Please excuse Carol Juarez from work for illness on 09/28/2007. She may return to work on 09/29/2007 without limitation. If you have any other questions or concerns please feel free to contact me at anytime. Sincerely, Karey Paula PA-C Department of Family Practice [facility] Source: [facility] Document Id: [id number] Electronically signed by Roland, [facility] Grass Cutter [id number] at 01/25/2017 12:10 AM CDT documented in this encounter Plan of Treatment Not on filedocumented as of this encounter Visit Diagnoses Not on filedocumented in this encounter
--- OUTSIDE RECORDS SUMMARY | 2022-07-29 08:35 | XMS_ITS | Encounter Summary ---
:1985 Author Organization [facility] Address [address] [place] [address] Care Team Providers Name Role Phone Unavailable Primary Care Provider Unavailable Encounter Details Date Type Department Care Team Description 07/27/2007 Hospital Encounter HX [facility] OBGYN Provider, Histor ical Social [...] How often do you attend baptist or druze More than 4 time s [...] Monsivais L.PBrittaneyNBrittaney - 07/27/2007 8:45 AM CST [id number] Addended by: ALISON GONZALEZ on: 07/27/2007 9:07:44 AM Modules accepted: Orders Source[facility] Document Id: [id number] Electronically signed by Conversion, [facility] Computer Support Technician [id number] at 01/25/2017 5:21 AM CDT Conversion, Historical Provider Ser - 07/27/2007 8:45 AM CST [id number] Gestational Age: 18w, feels ok, 20 week waiver signed,declines to have quad test, JZ Doing well, no concerns. Early 1hr glu today. U/s ordered. Source: [facility] Document Id: [id number] documented in this encounter Miscellaneous Notes Miscellaneous - Marisol Irving, C.N.P., R.N. - 07/27/2007 8:[id number] [facility] [address] [place] [address] July 27, 2007 Carol Juarez [address] [place] [phone] Dear Ms. Juarez: I am writing to [...] or problems, please contact our office at [phone]. Sincerely, Marisol Irving RN, METAL STAMPER [facility] Source: [facility] Document Id: [id number] Electronically signed by Conversion, [facility] Computer Support Technician [id number] at 01/25/2017 5:21 AM CDT documented in this encounter Plan of Treatment Not on filedocumented as of this encounter Visit Diagnoses Not on filedocumented in this encounter
--- OUTSIDE RECORDS SUMMARY | 2022-07-29 08:35 | XMS_ITS | Encounter Summary ---
:1985 Author Organization [facility] Address [address] [place] [address] Care Team Providers Name Role Phone Unavailable Primary Care Provider Unavailable Encounter Details Date Type Department Care Team Description 06/01/2007 Hospital Encounter [facility] X[facility] Provider, Histori huma Social [...] How often do you attend confucianism or muslim More than 4 time s [...]
--- OUTSIDE RECORDS SUMMARY | 2022-07-29 08:35 | XMS_ITS | Encounter Summary ---
:1985 Author Organization [facility] Address [address] [place] [address] Care Team Providers Name Role Phone Unavailable Primary Care Provider Unavailable Encounter Details Date Type Department Care Team Description 08/18/2007 Hospital Encounter HX [facility] Casi Vo M.D. [address] [place], [place] [phone] (Wo rk) Social History [...] How often do you attend taoist or hindu More than 4 time s [...] as of this encounter Progress Notes Ann Groev M.D. - 08/18/2007 9:15 AM CST [id number] Had presyncopal episode at work this am, better now GERD-can try zantac and maalox prn. KG Source: [facility] Document Id: [id number] documented in this encounter Plan of Treatment Not on filedocumented as of this encounter Visit Diagnoses Not on filedocumented in this encounter
--- OUTSIDE RECORDS SUMMARY | 2022-07-29 08:35 | XMS_ITS | Encounter Summary ---
:1985 Author Organization [facility] Address [address] [place] [address] Care Team Providers Name Role Phone Unavailable Primary Care Provider Unavailable Encounter Details Date Type Department Care Team Description 09/26/2007 Hospital Encounter [facility] Provider, Historic al Social History [...] How often do you attend sabianism or moravian More than 4 time s [...]
--- OUTSIDE RECORDS SUMMARY | 2022-07-29 08:35 | XMS_ITS | Encounter Summary ---
:1985 Author Organization [facility] Address [address] [place] [address] Care Team Providers Name Role Phone Unavailable Primary Care Provider Unavailable Encounter Details Date Type Department Care Team Description 09/26/[address] [facility] Marisol Galaviz, APR N, C.N.P. [address] [place], [place] [phone] (Wo rk) Social History [...] Provider Ser - 09/26/2007 9:45 AM CST [id number] Carol is here for her 26 week visit. She is Gestational Age: 26w 5d weeks today. 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 Carol understands the [...] appointment: 2,4 weeks Source: [facility] Document Id: [id number] Marisol Irving C.N.P., R.N. - 09/26/2007 9:45 AM CST [id number] Gestational Age: 26w 5d 1 hr gtt, antibody screen and hgb done today. certificate form given. BR Doing well. Attending classes. ZENON Source: [facility] Document Id: [id number] Electronically signed by [facility] Restorative Rehab Aide [id number] at 01/25/2017 12:10 AM CDT documented in this encounter Miscellaneous Notes Miscellaneous - Marisol Irving C.N.P., R.N. - 09/26/2007 9:45 AM CST [id number] [facility] [address] [facility] [place] [address] September 27, 2007 Carol Juarez [address] [place] [phone] Dear Ms. Juarez: I am writing to [...] or problems, please contact our office at [phone]. Sincerely, Marisol Irving RN, ER NURSE [facility] Source: [facility] Document Id: [id number] documented in this encounter Plan of Treatment Not on filedocumented as of this encounter Visit Diagnoses Not on filedocumented in this encounter
--- OUTSIDE RECORDS SUMMARY | 2022-07-29 08:35 | XMS_ITS | Encounter Summary ---
:1985 Author Organization [facility] Address [address] [place] [address] Care Team Providers Name Role Phone Unavailable Primary Care Provider Unavailable Encounter Details Date Type Department Care Team Description 05/24/2007 Hospital Encounter HX [facility] OBGYN Provider, Histor ical Social History [...] How often do you attend yarsanism or confucianist More than 4 time s [...] Provider Ser - 05/24/2007 12:00 AM CDT [id number] LMP: 03/12/07- Uncertain Dates NGA: 12/18/06 Triage/Phone [...] as soon as can be scheduled. Source: [facility] RWHXTRANSXRTFSYS Document Id: [id number] documented in this encounter Plan of Treatment Not on filedocumented as of this encounter Visit Diagnoses Not on filedocumented in this encounter
--- OUTSIDE RECORDS SUMMARY | 2022-07-29 08:35 | XMS_ITS | Encounter Summary ---
:1985 Author Organization [facility] Address [address] [place] [address] Care Team Providers Name Role Phone Unavailable Primary Care Provider Unavailable Encounter Details Date Type Department Care Team Description 06/01/2007 Hospital Encounter HX NO MAPPING Marisol Irving APRN, C.N.P. [address] [place], [place] [phone] (Wo rk) Social History [...]
[2022-07-29 10:32] LABS: HCG Quantitative* 8.73 mIU/mL
== END 2022-07-29 08:21 | disposition home or self-care (01) ==
LOC: NFLDREF 08:21
PROVIDERS: Visit Provider Obstetrics & Gynecology
DX: O03.9 Complete or unspecified spontaneous abortion without complication (principal); Z51.89 Encounter for other specified aftercare
CPT/HCPCS: 84702

== ENCOUNTER 2022-08-03 13:13 | Outpatient (CLI) | payer OTHER, SELFPAY ==
--- OUTSIDE RECORDS SUMMARY | 2022-08-03 09:36 | XMS_ITS | Encounter Summary ---
:1985 Author Organization [facility] Address [address] [place] [address] Care Team Providers Name Role Phone Alberto Locke M.D. Primary Care Provider Reason for Visit Reason Comments Ankle Injury Encounter Details Date Type Department Care Team Description 05/26/2022 Emergency [place] [facility], Jeaneth Bustillos, Inj ury Ankle Initial Right (Primary Dx); Department P.A.-C. Sprain Ankle Initial Right [address] [place] [phone] Social History Tobacco Use Types Packs/Day [...] often do you attend jehovah's witness or samaritan More than 4 time s [...] be sent through Care Everywhere. Ankle Sprain (Romanian)documented in this encounter Medications at Time [...] disposition will be home. Nuno Quijano, ZEYAD, RADIOLOGY RESIDENT, SHEET HANGER-C, AGACNP-BC, ENP-C Emergency Medicine Nuno Quijano C.N.P. [...] Hemorrhage Gastrointestinal 11/13/2017 Hypertension NOS Hypovolemic Shock ([facility]) 11/11/2017 Sleep Apnea does not use CPAP machine Patient Active Problem List Diagnosis Body Mass Index 60.0 To 69.9 Adult ([facility]) Abuse Tobacco Smoking Migraine Headache Apnea Sleep Obstructive Gastroesophageal Reflux Disease NOS Attention Deficit With Hyperactivity Disorder Depression Major Recurrent ([facility]) Diarrhea Medications: No current facility-administered [...] Jeaneth Earl P.A.-C. IMG DIAGNOSTIC IMAGING TEJAS DELUCA documented in this encounter Visit Diagnoses Diagnosis Injury Ankle Initial Right - Primary Sprain Ankle Initial Right documented in this encounter Additional Health Concerns Assessment Noted Time PHQ-9 Depression Total Score: 9 07/08/2020 3:59 PM NEONATAL SURGEON documented as of this encounter Care Teams Manual Training Teacher Relationship Specialty Start Date End Date Alberto Locke M.D. PCP - General Family Medicine 04/27/19 documented as of this encounter
--- OUTSIDE RECORDS SUMMARY | 2022-08-03 09:36 | XMS_ITS | Encounter Summary ---
:1985 Author Organization [facility] Address [address] [place] [address] Care Team Providers Name Role Phone Alberto Locke M.D. Primary Care Provider Encounter Details Date Type Department Care Team Description 06/09/2022 Clinical Support [facility] in [address] [phone] Social History Tobacco Use Types Packs/Day [...] How often do you attend episcopalian or yazidism More than 4 time s [...] Depression Total Score: 9 07/08/2020 3:59 PM STRATEGIC SOLUTIONS CONSULTANT documented as of this encounter Care Teams Gauge Maker Apprentice Relationship Specialty Start Date End Date Alberto Locke M.D. PCP - General Family Medicine 04/27/19 documented as of this encounter
--- OUTSIDE RECORDS SUMMARY | 2022-08-03 09:36 | XMS_ITS | Clinical Summary ---
:1985 Author Organization [facility] Address [address] [place] [address] Care Team Providers Name Role Phone Alberto Locke M.D. Primary Care Provider Source Comments Patient records contain information from all sites at [facility]. For routine questions regarding patient records, call [phone] during business hours, M-F 8:00 AM - 5:00 PM Central Time. Record requests for emergency care only can be directed to [phone] at any time.[facility] Allergies Active Allergy Reactions Severity Noted Date [...] Added automatically from request for guillermina arreola [id number] Body Mass Index 60.0 To 69.9 Adult [...] Added automatically from request for guillermina arreola [id number] Hemorrhage Gastrointestinal 11/13/2017 02/18/2018 Pain Right Upper Quadrant 11/11/2017 04/20/2019 Melena 11/11/2017 02/18/2018 Overview: Added automatically from request for guillermina arreola [id number] Hypovolemic Shock 11/11/2017 02/18/2018 Calculus Of Bile Duct Without Cholangitis Or Cholecystitis W ith 11/08/2017 04/20/2019 Obstruction Overview: Added automatically from request for guillermina arreola [id number] Appendicitis Acute 09/08/2017 09/17/2017 Overview: Added automatically from request for guillermina arreola [id number] Obesity Unspecified 05/01/2014 02/18/2018 Encounters Date Type Specialty Care Team Description 06/09/2022 Clinical Support Family Medicine Prisca Olvera, C.M.A. 05/26/2022 Emergency Emergency Reu, Jeaneth Bustillos, Injury Ankle Initial Right (Primary Dx); Medicine [...] Nicolette Moise, Pain Knee Le ft Surgery CODER OPERATOR, C.N.P., D.N.P. (Primar y Dx) from Last 3 Months Immunizations Name Administration [...] history exists Medical Devices Implanted Type Area Marine Technician Device Shelf Model / Identifier Expiration Serial / Date Lot Hardware E.G. Hardware Abdomen Pins/Screws/Ro e.g. ds pins/screws/ rods Description: Clamp for GI bleed Nexplanon-07/20/2018 Other/Legacy - See Arm 10/07/2020 / Implanted: 07/20/2018 by Leonora Reaves, JOSEFA, C.N.P. ( Quantity not on file) Implant Description / [id number] Procedures Procedure Name Priority Date/Time Associated Comments [...] Device are in the outpatients) results section. HI REMOVAL OF Routine 05/13/2022 1:15 Surveillance Results [...] Unknown, NGA: N/A INTRAUTERINE Pole: Not seen, [place]ai-Rump Length: N/A Gestational Sac: Normal Yolk Sac: [...] Unknown, NGA: N/A INTRAUTERINE Pole: Not seen, [place]ali[place]wai-Rump Length: N/A Gestational Sac: Normal Yolk Sac: [...] Rusty Guevara M.D. IMG OB US PROCEDURES HI REMOVAL OF INTRAUTERINE DEVICE (05/13/2022 1:15 PM CDT) Narrative MMODAL - 05/13/2022 1:15 PM CDT Rusty Guevara M.D. ? 05/13/2022 ??7:33 PM IUD Removal Performed by: Rusty Guevara M.D. Authorized by: Rusty Guevara M.D. Care team members present 1. Taryn Ruiz, LiorPBrittaneyN. PROCEDURE DETAILS ??Procedure: ??Removal ??Pelvic exam performed: [...] M.D. OB GYNE ORDERABLES Performing Organization Address City/[facility]/ZIP Code Phon e Number MMODAL MMODAL NA [...] GENE RAL ORDERABLES Performing Organization Address [facility] Phon e Number [facility]- [address] [place] [phone] [facility] [place] [address] System [address] (ABNORMAL) Urinalysis with Microscopic: (05/13/2022 12:30 [...] 8.0 05/13/2022 12:51 PM CDT RDWG Specific Lamoni >=1.030 1.001 - 1.035 05/13/2022 12:51 PM [...] e Number [facility]- [address] [place] [phone] [facility] [place] [address] System in [address] [place] (ABNORMAL) hCG (Human Chorionic Gonadotropin), Quantitative, (05/13/2022 12:07 PM CDT) Analysis Performed At Patho logist Time Signature HCG, [address] (H) <5 IU/L 05/13/2022 RDW[facility] Quantitative, 1:11 PM CDT , P Specimen Anatomical Collection Method Collection Time Receive d Time (Source) Location / / Volume Laterality Blood (Blood, 05/13/2022 12:07 05/13/2022 Venous) PM CDT 12:21 PM CDT Rusty Guevara M.D. LAB BLOOD ADD-ON Performing Organization Address City/State/ZIP Code Phon e Number [facility]- [address] [place], [place] [address] [place] [address] System in [place] [address] from Last 3 Months Insurance Payer Benefit Plan Subscriber ID Effective Dates Phone Address Type / Group [facility]ICA [facility] [id number] 2018-Presen [phone] [address] [id number] PPO EMPLOYEE PLAN t [address] [place] [address] (Home) [place] [address] (Work) Advance Directives For more information, please contact: [phone] Latest Code Status on File Code Status [...] Due to: Not medically appropriate Care Teams Barytes Grinder Relationship Specialty Start Date End Date Alberto Locke M.D. PCP - General Family Medicine 04/27/19
--- OUTSIDE RECORDS SUMMARY | 2022-08-03 09:36 | XMS_ITS | Encounter Summary ---
:1985 Author Organization [facility] Address [address] [place] [address] Care Team Providers Name Role Phone Alberto Locke M.D. Primary Care Provider Encounter Details Date Type Department Care Team Description 05/13/2022 Orders Only Department of [place], Surveillance Obstetrics and Rusty Santiago M.D. Intrauterine Device Gynecology in [facility] [address] (Primary Dx) [place] [address] [address] [place] [address] Social History Tobacco Use Types [...] How often do you attend gnosticist or congregational More than 4 time s [...] Depression Total Score: 9 07/08/2020 3:59 PM BOAT CREW DECK HAND documented as of this encounter Care Teams Director Of Quality Relationship Specialty Start Date End Date Alberto Locke M.D. PCP - General Family Medicine 04/27/19 documented as of this encounter
--- OUTSIDE RECORDS SUMMARY | 2022-08-03 09:36 | XMS_ITS | Encounter Summary ---
:1985 Author Organization [facility] Address [address] [place] [address] Care Team Providers Name Role Phone Alberto Locke M.D. Primary Care Provider Encounter Details Date Type Department Care Team Description 05/13/2022 Hospital Department of [place], Frequency Urin shonna Encounter Laboratory Rusty Santiago, Medicine in [address] [phone] Social History Tobacco Use Types Packs/Day Years [...] How often do you attend baptism or jew More than 4 time s [...] (05/13/2022 12:30 PM CDT) Analysis Performed At [facility] Time Signature Source Urine, Urine, 05/13/2022 [facility] [...] 8.0 05/13/2022 12:51 PM CDT R[facility] Specific [place]on >=1.030 1.001 - 1.035 05/13/2022 12:51 PM [...] M.D. LAB URINE ORDERABLES Performing Organization Address City/[facility]/ZIP Code Phon e Number [facility]- [address] [place], [place] [address] [place] [address] System in [place] [address] (ABNORMAL) Bacterial Culture, Aerobic + Susc, Urine (05/13/2022 12:30 PM CDT) [facility] gist Method Time Signature Urine Culture Mixed 05/14/2022 ECLR microbiota (A) 6:52 PM CDT Specimen Anatomical Collection Method Collection Time Receive d Time (Source) Location / / Volume Laterality Urine (Urine, 05/13/2022 12:30 05/13/2022 9:38 Midstream) PM CDT PM CDT Comment: Specimen Source Site: Urine Rusty Guevara M.D. LAB MICROBIOLOGY - GENE RAL ORDERABLES Performing Organization Address City/[facility] Phon e Number [facility]- [address] [place] [phone] [facility] [place] [address] System in [address] documented in this encounter Visit Diagnoses Diagnosis Frequency Urinary documented in this encounter Additional Health Concerns Assessment Noted Time PHQ-9 Depression Total Score: 9 07/08/2020 3:59 PM CURB MACHINE OPERATOR documented as of this encounter Care Teams Assistant Corporation Counsel Relationship Specialty Start Date End Date Alberto Locke M.D. PCP - General Family Medicine 04/27/19 documented as of this encounter
--- OUTSIDE RECORDS SUMMARY | 2022-08-03 09:36 | XMS_ITS | Encounter Summary ---
:1985 Author Organization [facility] Address [address] [place] [address] Care Team Providers Name Role Phone Alberto Locke M.D. Primary Care Provider Reason for Visit Outpatient (Routine) - Canceled Specialty Diagnoses / Procedures Referred By Contact Refer red To Contact Diagnoses Surveillance Intrauterine Device [place], Oluwafunmilayo O, [facility] Region Procedures US Pelvis Transvaginal and Transabdominal US Pelvis Transvaginal and Transabdominal M.DBrittaney [address] [place] [address] Referral ID Status Reason Start Date Expiration Date Visits V isits Requested Authorized [id number] Canceled 05/13/2022 05/13/2023 1 1 Encounter Details Date Type Department Care Team Description 05/13/2022 Hospital Department of [place], Surveillance Encounter Radiology in [place] Oluwafunmilayo O, Intrau terine Device [place], [place] M.DBrittaney [address] [facility] [address] [place] [address] [phone] (Wo rk) Social History Tobacco Use Types [...] How often do you attend buddhist or yarsanism More than 4 time s [...] Unknown, NGA: N/A INTRAUTERINE Pole: Not seen, [place]-Rump Length: N/A Gestational Sac: Normal Yolk Sac: [...] Unknown, NGA: N/A INTRAUTERINE Pole: Not seen, [place]-Rump Length: N/A Gestational Sac: Normal Yolk Sac: [...] Depression Total Score: 9 07/08/2020 3:59 PM ASSEMBLER SEAT documented as of this encounter Care Teams English Faculty Member Relationship Specialty Start Date End Date Alberto Locke M.D. PCP - General Family Medicine 04/27/19 documented as of this encounter
--- OUTSIDE RECORDS SUMMARY | 2022-08-03 09:36 | XMS_ITS | Encounter Summary ---
:1985 Author Organization [facility] Address [address] [place] [address] Care Team Providers Name Role Phone Alberto Locke M.D. Primary Care Provider Encounter Details Date Type Department Care Team Description 05/13/2022 Hospital Department of [place], Surveillance Encounter Laboratory Oluwafunmilayo O, Intrauteri ne Device Medicine in [address] [address] [phone] Social History Tobacco Use Types Packs/Day Years [...] How often do you attend restorationist or confucianist More than 4 time s [...] Performed At Patho logist Time Signature HCG, 55536 (H) <5 IU/L 05/13/2022 [facility] Quantitative, 1:11 PM CDT , P Specimen Anatomical Collection Method Collection Time Receive d Time (Source) Location / / Volume Laterality Blood (Blood, 05/13/2022 12:07 05/13/2022 Venous) PM CDT 12:21 PM CDT Rusty Guevara M.D. LAB BLOOD ADD-ON Performing Organization Address City/State/ZIP Code Phon e Number [facility]- [address] [facility] [place], [place] [address] [address] [place] [address] System in [place] [address] documented in this encounter Visit Diagnoses Diagnosis Surveillance Intrauterine Device documented in this encounter Additional Health Concerns Assessment Noted Time PHQ-9 Depression Total Score: 9 07/08/2020 3:59 PM MONORAIL CHARGER OPERATOR documented as of this encounter Care Teams Bullet Swaging Machine Operator Relationship Specialty Start Date End Date Alberto Locke M.D. PCP - General Family Medicine 04/27/19 documented as of this encounter
--- OUTSIDE RECORDS SUMMARY | 2022-08-03 09:37 | XMS_ITS | Encounter Summary ---
:1985 Author Organization [facility] Address [address] [place] [address] Care Team Providers Name Role Phone Alberto Locke M.D. Primary Care Provider Reason for Visit Reason Comments Immunizations flu Encounter Details Date Type Department Care Team Description 07/11/2021 Clinical Support Department of Pediatrics Sa griffin Baxter, in [facility] 701 [facility] 701 [place] [address] [place], [place] [phone] Social History Tobacco Use Types Packs/Day Years [...] Depression Total Score: 9 07/08/2020 3:59 PM ASSOCIATE PROFESSOR OF SOCIOLOGY documented as of this encounter Care Teams Wind Turbine Erector Relationship Specialty Start Date End Date Alberto Locke M.D. PCP - General Family Medicine 04/27/19 documented as of this encounter
--- OUTSIDE RECORDS SUMMARY | 2022-08-03 09:37 | XMS_ITS | Encounter Summary ---
:1985 Author Organization [facility] Address [address] [place] [address] Care Team Providers Name Role Phone Alberto Locke M.D. Primary Care Provider Reason for Referral Outpatient (Routine) - Authorized Specialty Diagnoses / Procedures Referred By Contact Refer red To Contact Diagnoses Surveillance Intrauterine Device Examination Test With Positive Result (HCC) Rusty Guevara [facility] Procedures IUD Removal M.Kelly [address] [place] [address] Referral ID Status Reason Start Date Expiration Date Visits V isits Requested Authorized [id number] Authorized 05/13/2022 05/13/2023 1 1 utpatient (Routine) - Authorized Specialty Diagnoses / Referred By Contact Referred To Procedures Contact Obstetrics and Rusty Guevara [facility] Gynecology Sera Santiago [address] [place] [address] Referral ID Status Reason Start Date Expiration Date Visits V isits Requested Authorized [id number] Authorized 05/13/2022 05/12/2025 1 1 Reason for Visit Reason Comments Follow-up Appointment Request (Routine) - Closed Specialty Diagnoses / Procedures Referred By Contact Refer red To Contact Obstetrics and Gynecology Referral ID Status Reason Start Date Expiration Date Visits Requ ested Visits Authorized [id number] Closed 05/13/2022 05/13/2023 1 Encounter Details Date Type Department Care Team Description 05/13/2022 Office Visit Department of [place], Not Reason For Visit (HCC) (Primary Dx); Obstetrics and Rusty Santiago M.D. Surveillance Intrauterine Device; Gynecology in [facility] [address] Infection Urinary Tract Acute; [place], [place] Examination Test W ith Positive Result (HCC) [address] [facility] [address] [place], [place] [phone] (Wo rk) [address] [phone] Social History Tobacco Use Types Packs/Day Years [...] How often do you attend buddhist or confucianism More than 4 time s [...] 07/2020. She denies any abdominal pain. OBJECTIVE Oracle Sql Developer- Taryn Ruiz BREAKER TENDER VITAL SIGNS Blood Pressure: (139)/(71) 139/71 Weight: [...] PM Result Value HCG, Quantitative, , P [address] (H) Urinalysis with Microscopic: Collection Time: 05/13/22 12:30 PM Result Value Source Urine, Urine, Midstream Clarity Slightly Cloudy (A) Color Yellow Blood Large (A) Nitrite Negative Leukocyte Esterase Moderate (A) Protein Trace Glucose Negative Ketones, QI(U) Negative Bilirubin Negative pH 5.5 Specific [place] >=1.030 Urobilinogen 0.2 White Blood Cells 11-20 [...] for a repeat ultrasound to confirm viability. DRY PRESS OPERATOR documented in this encounter Plan of Treatment Scheduled Orders Name Type Priority Associated Order Schedule Diagnoses US OB First Trimester Imaging RAD - Routine (most No t Expected: and Transvaginal inpatients and all Reason For Visit 1 outpatients) ([facility]) (Approximate), Expires: 08/12/2023 Scheduled Referrals Name Type Priority Associated Order Schedule Diagnoses Obstetrics and Outpatient Referral Routine Expect ed: Gynecology office 05/27/2022 visit (clinic) (Approximate) , Expires: 08/12/2023 documented as of this encounter Procedures Procedure Name Priority Date/Time Associated Diagnosis Comme nts NC REMOVAL OF Routine 05/13/2022 1:15 PM Surveillance Results for this INTRAUTERINE DEVICE CDT Intrauterine Device procedure are in the results Examination Test section. With Positive Result (HCC) documented in this encounter Results NC REMOVAL OF INTRAUTERINE DEVICE (05/13/2022 1:15 PM [...] Depression Total Score: 9 07/08/2020 3:59 PM RECEPTION MANAGER documented as of this encounter Care Teams Mechanical Expert Relationship Specialty Start Date End Date Alberto Locke M.D. PCP - General Family Medicine 04/27/19 documented as of this encounter
--- OUTSIDE RECORDS SUMMARY | 2022-08-03 09:37 | XMS_ITS | Encounter Summary ---
:1985 Author Organization [facility] Address [address] [place] [address] Care Team Providers Name Role Phone Alberto [...] Type Department Care Team Description 02/21/2022 Emergency [place] [facility] [place], Infection Urinary Department Ray Mustafa M.D. Tract (Primary Dx) [address] [place], [place] [phone] (Wo rk) Social History Tobacco Use Types [...] How often do you attend taoism or bahai More than 4 time s [...] were examined and treated today in the [facility] Emergency Department (ED) on an emergency basis. [...] through Care Everywhere. Urinary Tract Infection Adult (Sammarinese)documented in this encounter Medications at Time of [...] 8.0 02/21/2022 3:44 AM CDT [facility] Specific [place] 1.022 1.001 - 1.035 02/21/2022 3:44 AM [...] Number [facility]- [address] [place] [address] [address] [place] [address] System [address] Basic Metabolic Panel (02/21/2022 2:36 AM [...] Number [facility]- [facility] [place] [address] [address] [place] [address] System in [address] CBC with Differential, Blood (02/21/2022 [...] Number [facility]- [address] [place], [place] [address] [address] [place] [address] System in [place] [address] (ABNORMAL) Blood Gas with Coox, Venous (02/21/2022 2:36 AM CDT) [facility] gist Method Time Signature Venous Sample Venipunct [...] Number [facility]- [address] [place], [place] [address] [address] [place] [address] System in [place] [address] documented in this encounter Visit Diagnoses Diagnosis Infection Urinary Tract - Primary documented in this encounter Additional Health Concerns Assessment Noted Time PHQ-9 Depression Total Score: 9 07/08/2020 3:59 PM CHEMICAL PROCESS PROJECT ENGINEER documented as of this encounter Care Teams Med Care Manager Relationship Specialty Start Date End Date Alberto Locke M.D. PCP - General Family Medicine 04/27/19 documented as of this encounter
--- OUTSIDE RECORDS SUMMARY | 2022-08-03 09:37 | XMS_ITS | Encounter Summary ---
:1985 Author Organization [facility] Address [address] [place] [address] Care Team Providers Name Role Phone Alberto Locke M.D. Primary Care Provider Reason for Visit Reason Comments Leg Swelling COVID Nurse Line Encounter Details Date Type Department Care Team Description 11/04/2021 Nurse Triage Department of [facility] Rylee Calvert, Leg Swe lling; [facility], [facility], in [place], [address] [place] [address] [place] [address] [place] [address] [phone] Social History Tobacco Use Types Packs/Day Years [...] How often do you attend taoism or sikh More than 4 time s [...] to pay for the very basics like Zamzee hat hard 07/09/2020 food, housing, medical care, [...] in office. Patient was warm transferred to [facility] at the clinic for further assistance. [...] frequently with soap and water, use hand cement finisher helper if soap and water aren't available. -Wear [...] Yes The following references were used: [facility] novel coronavirus (COVID- 19) resources Reason for Disposition ??? [1] Thigh, calf, or ankle swelling AND [2] bilateral AND [3] 1 side is more swollen Protocols used: LEG SWELLING AND RCSUO-BMCEV-DS documented in this encounter Plan of Treatment Not on filedocumented as of this encounter Visit Diagnoses Not on filedocumented in this encounter Additional Health Concerns Assessment Noted Time PHQ-9 Depression Total Score: 9 07/08/2020 3:59 PM MASTER OF CEREMONIES documented as of this encounter Care Teams First Cook Relationship Specialty Start Date End Date Alberto Locke M.D. PCP - General Family Medicine 04/27/19 documented as of this encounter
--- OUTSIDE RECORDS SUMMARY | 2022-08-03 09:37 | XMS_ITS | Encounter Summary ---
:1985 Author Organization [facility] Address [address] [place] [address] Care Team Providers Name Role Phone Alberto Locke M.D. Primary Care Provider Reason for Referral Outpatient (Routine) - Closed Specialty Diagnoses / Procedures Referred By Contact Refer marko To Contact Diagnoses Edema Dyspnea On Exertion Shortness Of Breath Nichole Maria M.D. [facility] [place] [facility] Procedures DX Chest AP or PA and Lateral 2 Views [address] [place] [address] Referral ID Status Reason Start Date Expiration Date Visits Requ ested Visits Authorized [id number] Closed 11/04/2021 11/04/2022 1 1 Reason for Visit Outpatient (Routine) - Closed Specialty Diagnoses / Procedures Referred By Contact Refer marko To Contact Diagnoses Edema Dyspnea On Exertion Shortness Of Breath Nichole Maria M.D. [facility] [place] [facility] Procedures DX Chest AP or PA and Lateral 2 Views [address] [place] [address] Referral ID Status Reason Start Date Expiration Date Visits Requ ested Visits Authorized [id number] Closed 11/04/2021 11/04/2022 1 1 Encounter Details Date Type Department Care Team Description 11/04/2021 Hospital Encounter Department of Nichole Maria; Radiology in Marko Barrett M.D. Dyspnea On Exertion; [place] [address]los Shortness Of Breath [address] [place] [phone] Social History Tobacco Use Types Packs/Day [...] Depression Total Score: 9 07/08/2020 3:59 PM AIRCRAFT MANAGER documented as of this encounter Care Teams Program Director/Music Director Relationship Specialty Start Date End Date Alberto Locke M.D. PCP - General Family Medicine 04/27/19 documented as of this encounter
--- OUTSIDE RECORDS SUMMARY | 2022-08-03 09:37 | XMS_ITS | Encounter Summary ---
:1985 Author Organization [facility] Address [address] [place] [address] Care Team Providers Name Role Phone Alberto Locke M.D. Primary Care Provider Reason for Referral Outpatient (Routine) - Authorized Specialty Diagnoses / Procedures Referred By Contact Refer red To Contact Family Medicine Diagnoses Diarrhea Pain Generalized Abdominal Nausea Alaina Stratton APRN [facility] C.N.P., D.N.P. [address] [place] [address] Referral ID Status Reason Start Date Expiration Date Visits V isits Requested Authorized [id number] Authorized 02/17/2022 02/17/2023 1 1 Reason for Visit Reason Comments Symptom Assessment Encounter Details Date Type Department Care Team Description 02/17/2022 Office Visit Department of Alaina Stratton Diarrhea (Pr imary Dx); Internal Medicine in JOSEFA Bustillos, C.N.P., [place]; [place], [place] D.N.P. Pain Generalized Abdominal; [address] Shortness Of Breath; [place], [place] Gastroesophagea l Reflux Disease Without Esophagitis [phone] Social History Tobacco Use Types Packs/Day Years [...] How often do you attend evangelical or restoration More than 4 time s [...] when she tries to eat. Recommended trying acki-jfu-sjxzeuf Prilosec daily for up to 30 days. [...] Name Type Priority Associated Diagnoses Order S [facility] Medicine Outpatient Referral Routine Diarrhea Expected: [...] Panel, PCR, Feces (02/17/2022 7:48 PM CDT) [facility] Method Time Signature Specimen Source STOOL [...] using the FDA-cl eared FilmArray GI Panel ([employer] Specimen Anatomical Collection Method Collection Time Receive d Time (Source) Location / / Volume Laterality Stool (Stool) 02/17/2022 7:48 PM 02/18/20 7:48 CDT PM CDT Alaina Stratton APRN C.N.P., D.N.P. LAB MICROBIOLOGY - GENERAL ORDERABLES Performing Organization Address City/State/ZIP Code Phon e Number [facility]- [address] [place], [place] [address] [address] [place] [address] System in [place] Test, POCT, Urine (lab) (02/17/2022 [...] Number [facility]- [address] [place], [place] [address] [address] [place] [address] System in [place] [address] [place] NT-Pro B-Type Natriuretic Peptide (BNP) (02/17/2022 6:38 [...] 22 6:44 Venous) CDT PM CDT Alaina Strtaton APRN, Marlyn.N.P., D.N.P. LAB BLOOD ADD-ON Performing Organization Address City/State/ZIP Code Phon e Number [facility]- [address] [place], [place] [address] [address] [place] [address] System in [place] [address] [place] (ABNORMAL) CRP (C-Reactive Protein) (02/17/2022 6:38 PM CDT) athologist [facility] C-Reactive 21.7 (H) <=8.0 mg/L 02/17/2022 [facility] Protein (CRP), 7:10 PM CDT P Specimen Anatomical Collection Method Collection Time Receive d Time (Source) Location / / Volume Laterality Blood (Blood, 02/17/2022 6:38 PM 02/18/20 6:44 Venous) CDT PM CDT Marlyn Rosenbreg APRN.N.P., D.N.P. LAB BLOOD ADD-ON Performing Organization Address City/[facility] Phon e Number [facility]- 701 [facility] [place], [place] [address] [address] [place] [address] System in [place] [address] [place] [address] Lipase (02/17/2022 6:38 PM CDT) athologist [facility] Lipase, P 22 13 - 60 U/L 02/17/2022 7:10 [facility] PM CDT Specimen Anatomical Collection Method Collection Time Receive d Time (Source) Location / / Volume Laterality Blood (Blood, 02/17/2022 6:38 PM 02/18/20 6:44 Venous) CDT PM CDT Marlyn Rosenberg APRN.N.P., D.N.P. LAB BLOOD ADD-ON Performing Organization Address City/[facility]/ZIP Code Phon e Number [facility]- 701 [facility] [place], [place] [address] [address] [place] [facility] [place] [address] System in [place] [address] [place], [place] [address] Comprehensive Metabolic Panel (02/17/2022 6:38 PM CDT) [...] CDT eGFR-Black/Afric >90 >=60 02/17/2022 [facility] an Sri Lankan mL/min/BSA 7:10 PM CDT Comment: ----ADDITIONAL INFORMATION---- [...] e Number [facility]- [address] [facility] [place], [place] [address] [address] [place] [address] System in [place] 701 [facility] (ABNORMAL) CBC with Differential, Blood (02/17/2022 6:38 PM CDT) [facility] Method Time Signature Hemoglobin 15.5 (H) [...] e Number [facility]- [address] [place], [place] [address] [address] [place] [address] System in [place] [address] [place] documented in this encounter Visit Diagnoses Diagnosis Diarrhea - Primary Nausea Pain Generalized Abdominal Shortness Of Breath Gastroesophageal Reflux Disease Without Esophagitis documented in this encounter Additional Health Concerns Assessment Noted Time PHQ-9 Depression Total Score: 9 07/08/2020 3:59 PM COMMUNITY RELATIONS OFFICER documented as of this encounter Care Teams Capsule Maker Relationship Specialty Start Date End Date Alberto Locke M.D. PCP - General Family Medicine 04/27/19 documented as of this encounter
--- OUTSIDE RECORDS SUMMARY | 2022-08-03 09:37 | XMS_ITS | Encounter Summary ---
:1985 Author Organization [facility] Address [address] [place] [address] Care Team Providers Name Role Phone Alberto Locke M.D. Primary Care Provider Encounter Details Date Type Department Care Team Description 02/25/2022 Orders Only [facility] Sa emma Lemos M.D. Screening Lipid [address] [place] [phone] (Wo rk) Social History Tobacco Use Types [...] How often do you attend taoist or quaker More than 4 time s [...] Depression Total Score: 9 07/08/2020 3:59 PM BAT BOY/GIRL documented as of this encounter Care Teams Pocket Marker Relationship Specialty Start Date End Date Alberto Locke M.D. PCP - General Family Medicine 04/27/19 documented as of this encounter
--- OUTSIDE RECORDS SUMMARY | 2022-08-03 09:37 | XMS_ITS | Encounter Summary ---
:1985 Author Organization [facility] Address [address] [place] [address] Care Team Providers Name Role Phone Alberto Locke M.D. Primary Care Provider Reason for Visit Reason Comments Results [facility] Encounter Details Date Type Department Care Team Description 01/18/2022 Clinical Communication Division of Tracy Wolf ([facility]) Community Internal Kimberli Purdy R.N. [facility] 200 [facility] [address] [place] [phone] 200 [facility] ([facility] [place] [phone] Social History Tobacco Use Types Packs/Day Years [...] How often do you attend voodoo or spiritism More than 4 time s [...] to pay for the very basics like Xanodyne hat hard 07/09/2020 food, housing, medical care, [...] 3:55 PM CDT [facility] TELEPHONE COMMUNICATION NOTE [employer]: None The patient was called regarding a [...] your primary care provider or present to [facility] emergency department for evaluation. Treatment [...] effects may happen. You would need to pick up driver and start the medication within 5 days of symptom onset, and you would take the medication twice a day for 5 days. You would need to have someone who is not in isolation or quarantine for COVID-19 pick up driver the prescription at a [facility] pharmacy. The medication is provided at no [...] effects of the drug on milk production. [facility] advises that mothers should pump and dump [...] to decide.The patient was counselled to call [facility] at [phone] if they change their mind. Reviewed that [...] references were used: Nursing or Provider judgement, [facility] workflow, [facility] Protocols Kimberli Wolf R.N. [place] COVID Care Team [facility] and [facility] Telephone Encounter - Kimberli Wolf R.N. - [...] for: Paxlovid and Molnupiravir. Kimberli Wolf R.N. 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 PCP - General Family Medicine 04/27/19 documented as of this encounter
--- OUTSIDE RECORDS SUMMARY | 2022-08-03 09:37 | XMS_ITS | Encounter Summary ---
:1985 Author Organization [facility] Address [address] [place] [address] Care Team Providers Name Role Phone Alberto Locke M.D. Primary Care Provider Encounter Details Date Type Department Care Team Description 01/16/2022 Admin Visit Department of [facility] Hays, 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 PCP - General Family Medicine 04/27/19 documented as of this encounter
--- OUTSIDE RECORDS SUMMARY | 2022-08-03 09:37 | XMS_ITS | Encounter Summary ---
:1985 Author Organization [facility] Address [address] [place] [address] Care Team Providers Name Role Phone Alberto Locke M.D. Primary Care Provider Reason for Visit Reason Comments Sore Throat Shortness of Breath Encounter Details Date Type Department Care Team Description 05/19/2021 Emergency [facility] Berny Garcia, Tonsi llitis Acute Department M.DBrittaney (Primary Dx) [address] [facility] [address] [place] [address] [phone] (Wo rk) Social History Tobacco Use Types [...] How often do you attend quaker or jewish More than 4 time s [...] cannot be sent through Care Everywhere. Tonsillitis (Sinhala)documented in this encounter Medications at Time [...] City/State/ZIP Code Phon e Number [facility]- [address] [place] [address] [place] [address] System in [place] [address] [place] [address] (ABNORMAL) Comprehensive Metabolic Panel (05/19/2021 9:45 PM [...] CDT eGFR-Black/Afri >90 >=60 05/19/2021 R[facility] can Tongan mL/min/BSA 10:20 PM CDT Comment: ----ADDITIONAL INFORMATION---- [...] Phon e Number [facility]- [address] [facility] [place] [id number] [facility] [place] [facility] [place] [facility] [place] [address] System in [place] [address] (ABNORMAL) CBC with Differential, Blood (05/19/2021 9:45 PM CDT) [facility] Method Time Signature Hemoglobin 14.0 11.6 - [...] Phon e Number [facility]- [address] [place], [place] [address] [place] [facility] [place] [place] [address] System in [place] [address] [place] SARS Coronavirus-2 RNA, V (05/19/2021 [...] pe rformed using the Aptima SARS-CoV-2 assay ([employer] on the Maxymisers tem under emergency use authorization (EUA) by the U.S. Food and Drug Administ ration. Fact sheets for this EUA assay can be fo und at the following links: For Healthcare Providers: https://www.RegulatoryBinder a.gov/media/652959/download For Patients: https://www.fda.gov/media/ 697376/download Specimen Anatomical Collection Method Collection Time Receive d Time (Source) Location / / Volume Laterality Varies 05/19/2021 9:44 PM CDT 11:00 AM CDT Berny Garcia M.D. LAB MICROBIOLOGY - GENERAL O RDERABLES Performing Organization Address City/State/ZIP Code Phon e Number [facility]- [address] [place] [address] 09 251 [facility] [place] [address] System [address] Streptococcus Group A, Molecular Detection, PCR, [...] Code Phon e Number [facility]- [address] [place], [place] [address] [address] [place] [address] System in [place] [address] documented in this encounter Visit Diagnoses Diagnosis Tonsillitis Acute - Primary documented in this encounter Additional Health Concerns Infection Onset Date Last Indicated Resolved Time COVID19 Pending 05/19/2021 05/19/2021 05/19/2021 10:24 PM CDT COVID19 Pending 05/19/2021 05/19/2021 05/20/2021 3:13 PM CDT Assessment Noted Time PHQ-9 Depression Total Score: 9 07/08/2020 3:59 PM JUNIOR ENGINEER documented as of this encounter Care Teams Production Trainer Relationship Specialty Start Date End Date Alberto Locke M.D. PCP - General Family Medicine 04/27/19 documented as of this encounter
--- OUTSIDE RECORDS SUMMARY | 2022-08-03 09:37 | XMS_ITS | Encounter Summary ---
:1985 Author Organization [facility] Address [address] [place] [address] Care Team Providers Name Role Phone Alberto Locke M.D. Primary Care Provider Encounter Details Date Type Department Care Team Description 07/15/2021 Orders Only [facility] NEHEMIAHT Frankie Locke M.D. [address] [place] [address] (Wo rk) Social [...] How often do you attend jew or quaker More than 4 time s [...] Depression Total Score: 9 07/08/2020 3:59 PM HOT FRAME TENDER documented as of this encounter Care Teams Leather Tanner Relationship Specialty Start Date End Date Alberto Locke M.D. PCP - General Family Medicine 04/27/19 documented as of this encounter
--- OUTSIDE RECORDS SUMMARY | 2022-08-03 09:37 | XMS_ITS | Encounter Summary ---
:1985 Author Organization [facility] Address [address] [place] [address] Care Team Providers Name Role Phone Alberto Locke M.D. Primary Care Provider Reason for Referral Outpatient (Routine) - Authorized Specialty Diagnoses / Procedures Referred By Contact Refer red To Contact Diagnoses Edema Dyspnea On Exertion Shortness Of Breath Nichole Maria M.D. [facility] Region Procedures ECG 12 Lead [address] [place] [phone] Referral ID Status Reason Start Date Expiration Date Visits V isits Requested Authorized [id number] Authorized 11/04/2021 11/04/2022 1 1 Outpatient (Routine) - Closed Specialty Diagnoses / Procedures Referred By Contact Refer red To Contact Diagnoses Edema Dyspnea On Exertion Shortness Of Breath Nichole Maria M.D. [facility] Procedures DX Chest AP or PA and Lateral 2 Views [address] [place] [address] Referral ID Status Reason Start Date Expiration Date Visits Requ ested Visits Authorized [id number] Closed 11/04/2021 11/04/2022 1 1 Reason for Visit Reason Comments Edema Bilateral lower legs, with d izziness. Ongoing x several weeks Appointment Request (Routine) - Closed Specialty Diagnoses / Procedures Referred By Contact Refer red To Contact Family Medicine Referral ID Status Reason Start Date Expiration Date Visits Requ ested Visits Authorized [id number] Closed 11/04/2021 11/04/2022 1 1 Encounter Details Date Type Department Care Team Description 11/04/2021 Office Visit Department of Nichole Maria, Edema ( Primary Dx); Internal Medicine in M.D. Dyspnea On Exertion; [place], [place] [address] Shortness Of Breath; [address] [place], [place] Headache New; [place] [address] Apnea Sleep Obstructive [address] [phone] Social History Tobacco Use Types Packs/Day Years [...] How often do you attend mormon or nondenominational More than 4 time s [...] section within an hour of betting to [facility]. That was 3 years ago. She [...] concerning arrhythmias or atypical ST segmentchanges or CO interval issues. CXR per my personal review, [...] and afebrile. Suspect benign. Conservative therapies with wnka-gfx-akhnqli meds, stretching, relaxation ensuring adequate hydration and [...] d isease. Nichole [facility] DIAGNOSTIC IMAGING PROCE [facility] ECG 12 Lead (11/04/2021 3:40 PM CDT) P athologist Signature Ventricular Rate 82 BPM MUSE ECG/Min CO Interval 146 ms MUSE QRSD Interval 74 ms MUSE QT Interval 360 ms MUSE QTC Interval 420 ms MUSE P [place] 49 degrees MUSE R [place] 55 degrees MUSE T Wave [place] 56 degrees MUSE Specimen Anatomical Collection Method [...] Organization Address City/State/ZIP Code Phon e Number [facility]- [address] [place], [place] [address] [address] [facility] [place] [facility] [place] [address] System in [place] [address] hCG (Human Chorionic Gonadotropin), [...] Organization Address City/State/ZIP Code Phon e Number [facility]- [address] [place], [place] [address] [place] [address] System in [place] [address] [place] [address] T4 (Thyroxine), Free (11/04/2021 3:23 PM CDT) P athologist Signature T4 (Thyroxine), 1.3 0.9 - 1.7 11/04/2021 RDW[facility] Free, P ng/dL 4:03 PM CDT Comment: Biotin has been identified by the doug saucedo as a potential interfering substance. ??Higher concentr ations of biotin may be found in multivitamins, hair/nail supple ments, and workout supplements. ??If the result does not [facility] clinical observations, repeat testing after patient refrains fr om the use of supplements for at least 12 hours. Specimen Anatomical Collection Method Collection Time Receive d Time (Source) Location / / Volume Laterality Blood (Blood, 11/04/2021 3:23 PM 11/05/19 3:29 Venous) CDT PM CDT Nichole Maria M.D. LAB BLOOD ADD-ON Performing Organization Address City/State/ZIP Code Phon e Number [facility]- [address] [place], [place] [address] [address] [place] [facility] [place] [address] System in [place] [address] [place], [place] [address] S-TSH (Thyroid-Stimulating Hormone - Sensitive) (11/04/2021 3:23 PM CDT) athologist Signature TSH, Sensitive 0.9 0.3 - 4.2 11/04/2021 RDWG mIU/L 4:03 PM CDT Specimen Anatomical Collection Method Collection Time Receive d Time (Source) Location / / Volume Laterality Blood (Blood, 11/04/2021 3:23 PM 11/05/19 3:29 Venous) CDT PM CDT Nichole Maria M.D. LAB BLOOD ADD-ON Performing Organization Address City/State/ZIP Code Phon e Number [facility]- [address] [place], [place] [address] [address] [place] [facility] [place] [address] System in [place] [address] [place] D-Dimer (11/04/2021 3:23 PM CDT) athologist Signature [...] Organization Address City/State/ZIP Code Phon e Number [facility]- [address] [place], [place] [address] [address] [place] [facility] [address] System in [place] [address] [place] Basic Metabolic Panel (11/04/2021 3:23 PM CDT) [...] CDT eGFR-Black/Afric >90 >=60 11/04/2021 R[facility] an [place] Timorese mL/min/BSA 3:51 PM CDT Comment: ----ADDITIONAL INFORMATION---- [...] Organization Address City/State/ZIP Code Phon e Number [facility]- [address] [place], [place] [address] [place] [address] System in [place] [address] (ABNORMAL) CBC with Differential, [...] Organization Address City/State/ZIP Code Phon e Number [facility]- [address] [place], [place] [address] [place], [place] [address] [place] [address] NT-Pro B-Type Natriuretic Peptide (BNP) (11/04/2021 [...] supplements. ??If the result does not [facility] clinical observations, repeat testing after patient refrains fr om the use of supplements for at least 12 hours. Specimen Anatomical Collection Method Collection Time Receive d Time (Source) Location / / Volume Laterality Blood (Blood, 11/04/2021 3:23 PM 11/05/19 3:29 Venous) CDT PM CDT Nichole Maria M.D. 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 PCP - General Family Medicine 04/27/19 documented as of this encounter
--- OUTSIDE RECORDS SUMMARY | 2022-08-03 09:37 | XMS_ITS | Encounter Summary ---
:1985 Author Organization [facility] Address [address] [place] [address] Care Team Providers Name Role Phone Alberto Locke M.D. Primary Care Provider Reason for Visit Reason Comments Follow-up Encounter Details Date Type Department Care Team Description 05/13/2022 Clinical Communication Department of Nichole Ivey Follow-up Obstetrics and A, R.N. Gynecology in [address] [address] [place], [place] [phone] [address] (Work) [phone] Social History Tobacco Use Types Packs/Day Years [...] How often do you attend buddhism or mandaeism More than 4 time s [...] to pay for the very basics like digitalbox hat hard 07/09/2020 food, housing, medical care, [...] and informed of plan. Patient transferred to business objects report developer to schedule. Warning signs for ectopic reviewed [...] + Susc, Urine (05/13/2022 12:30 PM CDT) [facility] gist Method Time Signature Urine Culture Mixed 05/14/2022 ECL[facility] microbiota (A) 6:52 PM CDT Specimen Anatomical Collection Method Collection Time Receive d Time (Source) Location / / Volume Laterality Urine (Urine, 05/13/2022 12:30 05/13/2022 9:38 Midstream) PM CDT PM CDT Comment: Specimen Source Site: Urine Rusty Guevara M.D. LAB MICROBIOLOGY - GENE RAL ORDERABLES Performing Organization Address City/[facility]/ZIP Code Phon e Number [facility]- [address] [place] [phone] [facility] [place] [address] (ABNORMAL) hCG (Human Chorionic Gonadotropin), Quantitative, (05/13/2022 12:07 PM CDT) Analysis Performed At Patho logist Time Signature HCG, [address] (H) <5 IU/L 05/13/2022 R[facility] Quantitative, 1:11 PM CDT , P Specimen Anatomical Collection Method Collection Time Receive d Time (Source) Location / / Volume Laterality Blood (Blood, 05/13/2022 12:07 05/13/2022 Venous) PM CDT 12:21 PM CDT Rusty Guevara M.D. LAB BLOOD ADD-ON Performing Organization Address City/[facility] Code Phon e Number [facility]- [address] [place], [place] [address] [place] [address] System in [place] [address] documented in this encounter Visit Diagnoses Diagnosis Surveillance Intrauterine Device - Prima ry Frequency Urinary documented in this encounter Additional Health Concerns Assessment Noted Time PHQ-9 Depression Total Score: 9 07/08/2020 3:59 PM MEDICAL REVIEW SPECIALIST documented as of this encounter Care Teams Quality Worker Relationship Specialty Start Date End Date Alberto Locke M.D. PCP - General Family Medicine 04/27/19 documented as of this encounter
--- OUTSIDE RECORDS SUMMARY | 2022-08-03 09:37 | XMS_ITS | Encounter Summary ---
:1985 Author Organization [facility] Address [address] [place] [address] Care Team Providers Name Role Phone Alberto Locke M.D. Primary Care Provider Reason for Visit Reason Comments Outpatient COVID-19 Testing Encounter Details Date Type Department Care Team Description 07/15/2021 Emergency [place] [facility] [address] [place] [phone] Social History Tobacco Use Types [...] How often do you attend episcopalian or alevism More than 4 time s [...] - - Pulse 101 07/15/2021 8:01 PM DIE CUTTING MACHINE OPERATOR Temperature - - Respiratory Rate 18 07/15/2021 8:01 PM DIE CUTTING MACHINE OPERATOR Oxygen Saturation 94% 07/15/2021 8:01 PM DIE CUTTING MACHINE OPERATOR Inhaled Oxygen Concentration - - Weight - - Height - - Body Mass Index - - documented in this encounter Discharge Instructions Discharge InstructionsMichelle Kennedy R.N. - 07/15/2021 8:22 PM CST COVID-19 disease from Coronavirus is rapidly changing. We recognize the uncertainty you may feel at this time, and want to assure you that [facility] is committed to your health and safety. To stay informed, it is highly recommended you seek information from a website that has the most accurate and recent information such as the CDC: https://www.cdc.gov/coronavirus/2019-ncov/downloads/aeqj-mdlz-0392- lIsT-rpeq-swesr.pdf [place] Messages from the CDC link above. [...] positive, patients will be contacted by a [facility] provider. CUTTING MACHINE OPERATOR documented in this encounter Medications at [...] Result s for this COV-2, PCR, RAPID,V DIE CUTTING MACHINE OPERATOR procedur e are in the results section. documented in this encounter Results Influenza A/B, SARS CoV-2, PCR, Rapid, Varies Symptomatic (07/15/2021 8:11 PM DIE CUTTING MACHINE OPERATOR) [facility] Method Time Signature Influenza A, Negative Negative 07/15/2021 CNFL PCR, Rapid, V 8:38 PM DIE CUTTING MACHINE OPERATOR Influenza B, Negative Negative 07/15/2021 CNFL PCR, Rapid, V 8:38 PM DIE CUTTING MACHINE OPERATOR SARS CoV-2, Undetected Undetected 07/15/2021 CNFL PCR, Rapid, V 8:38 PM DIE CUTTING MACHINE OPERATOR Comment: ----ADDITIONAL INFORMATION---- This RT-PCR test was performed using the Javy SARS-CoV-2 and Influenza A/B Reagent assay from [employer], which has received Emergency Use Authori zation(EUA) by the U.S. Food and Drug Administration . Fact sheets for this Emergency Use Autho rization (EUA) assay can be found at the following link s: For Healthcare Providers: https://www.fda.gov/media/807020/downloa d For Patients: https://www.fda.gov/media/247104/downloa d Infl A/B, SARS CoV-2, PCR, Source Swab, Nasopharynx 07/15/2021 8:38 PM DIE CUTTING MACHINE OPERATOR CNFL Specimen Anatomical Collection Method Collection Time Receive d Time (Source) Location / / Volume Laterality Varies 07/15/2021 8:11 PM 8:17 (Nasopharynx) DIE CUTTING MACHINE OPERATOR PM DIE CUTTING MACHINE OPERATOR Cedric Bush P.A.-C. LAB MICROBIOLOGY - GENERAL O RDERABLES Performing Organization Address City/State/ZIP Code Phon e Number [facility]- [address] [place] [address] Blvd [place], [place] [id number] [place] [address] [place] [address] System in [address] documented in this encounter Visit Diagnoses Not on filedocumented in this encounter Additional Health Concerns Infection Onset Date Last Indicated Resolved Time COVID19 Pending 07/15/2021 07/15/2021 07/15/2021 8:38 PM DIE CUTTING MACHINE OPERATOR Assessment Noted Time PHQ-9 Depression Total Score: 9 07/08/2020 3:59 PM DIE CUTTING MACHINE OPERATOR documented as of this encounter Care Teams Tankerman Relationship Specialty Start Date End Date Alberto Locke M.D. PCP - General Family Medicine 04/27/19 documented as of this encounter
--- OUTSIDE RECORDS SUMMARY | 2022-08-03 09:37 | XMS_ITS | Encounter Summary ---
:1985 Author Organization [facility] Address [address] [place] [address] Care Team Providers Name Role Phone Alberto Locke M.D. Primary Care Provider Reason for Visit Reason Onset Date Comments Testing For Upper Respiratory Virus Symptoms 01/16/2022 Encounter Details Date Type Department Care Team Description 01/16/2022 External Outreach Department of [facility] Yamel Collins Contact With And (Suspected) Exposure To COVID-19; Medicine, Lockhart T, P.A.-C. Infection [facility], in [address] [address] [place] [phone] [address] (Work) [phone] Social History Tobacco Use Types Packs/Day Years [...] How often do you attend cheondoism or orthodoxy More than 4 time s [...] coordinate the care. For questions, contact the [facility] Covid Care Team ([facility]): Pager: [phone] In basket: P R[facility] COVID-19 POSITIVE Covid Care e-consult NOTE: At the time of testing, patients are instructed to obtain the result by calling the [facility] result line or by checking their online [...] RNA, V Symptomatic (01/16/2022 8:39 AM CDT) [facility] Method Time Signature SARS-CoV-2 Swab, 01/17/2022 ECLR Specimen Nasopharynx 8:57 PM CDT Source SARS CoV-2 Detected (A) Undetected 01/17/2022 ECLR RNA, TMA 8:57 PM CDT Comment: SARS-CoV-2 RNA present. ----ADDITIONAL INFORMATION---- This molecular amplification test was pe rformed using the Aptima SARS-CoV-2 assay ([employer] on the Discover[employer] tem under emergency use authorization (EUA) by the U.S. Food and Drug Administ ben. Fact sheets for this EUA assay can be fo und at the following links: For Healthcare Providers: https://www.fd a.gov/media/563066/download For Patients: https://www.fda.gov/media/ 629643/download Specimen Anatomical Collection Method Collection Time Receive d Time (Source) Location / / Volume Laterality Varies 01/16/2022 8:39 AM 4:18 (Nasopharynx) CDT PM CDT Venu Collins P.A.-C. LAB MICROBIOLOGY - GENERAL O BOBBY Performing Organization Address City/State/ZIP Code Phon e Number [facility]- [address] [place] [address] [phone] [facility] [place] [address] System [address] documented in this encounter Visit Diagnoses Diagnosis Contact With And (Suspected) Exposure To COVID-19 Infection Upper Respiratory documented in this encounter Additional Health Concerns Infection Onset Date Last Indicated Resolved Time COVID19 Pending 01/16/2022 01/16/2022 01/17/2022 8:58 PM CDT Assessment Noted Time PHQ-9 Depression Total Score: 9 07/08/2020 3:59 PM VOLUNTEER SERVICES SUPERVISOR documented as of this encounter Care Teams Hop Farm Worker Relationship Specialty Start Date End Date Alberto Locke M.D. PCP - General Family Medicine 04/27/19 documented as of this encounter
--- OUTSIDE RECORDS SUMMARY | 2022-08-03 09:37 | XMS_ITS | Encounter Summary ---
:1985 Author Organization [facility] Address [address] [place] [address] Care Team Providers Name Role Phone Alberto Locke M.D. Primary Care Provider Reason for Referral Outpatient (Routine) - Authorized Specialty Diagnoses / Procedures Referred By Contact Refer red To Contact Orthopedic Surgery Nicolette Moise APRN, [facility] [place] [facility] C.N.P., D.N.P. [address] [place] [address] Referral ID Status Reason Start Date Expiration Date Visits V isits Requested Authorized [id number] Authorized 05/05/2022 05/04/2025 1 1 RI/CAT/PET Scan (Routine) - Pending Review Specialty Diagnoses / Procedures Referred By Contact Refer red To Contact Radiology Diagnoses Pain Knee Left Nicolette Moise APRN, [facility] [place] [facility] Procedures MR Knee Left without IV Contrast C.N.P., D.N.P. [address] [place] [address] Referral ID Status Reason Start Date Expiration Date Visits V isits Requested Authorized [id number] Pending 05/05/2022 05/05/2023 1 1 Review Encounter Details Date Type Department Care Team Description 05/05/2022 Orders Only Department of Nicolette Moise L, Pain Knee L eft Orthopedic Surgery in [place], (Prim shonna Dx) Caroline Toure D.N.P. [address] [place] [phone] Social History Tobacco Use Types Packs/Day [...] Depression Total Score: 9 07/08/2020 3:59 PM BEAMER HAND documented as of this encounter Care Teams Director Voice Relationship Specialty Start Date End Date Alberto Locke M.D. PCP - General Family Medicine 04/27/19 documented as of this encounter
--- OUTSIDE RECORDS SUMMARY | 2022-08-03 09:37 | XMS_ITS | Encounter Summary ---
:1985 Author Organization [facility] Address [address] [place] [address] Care Team Providers Name Role Phone Alberto Locke M.D. Primary Care Provider Encounter Details Date Type Department Care Team Description 05/12/2021 Clinical Communication Department of [facility] Alberto Fregoso M.D. [address], in [id number] [place] [address] (Wo rk) [phone] Social History Tobacco Use Types Packs/Day Years [...] How often do you attend pentecostalism or catholic More than 4 time s [...] to pay for the very basics like [employer] hat hard 07/09/2020 food, housing, medical care, [...] COVID19 Pending 07/15/2021 07/15/2021 07/15/2021 8:38 PM WRAPPER STITCHER Assessment Noted Time PHQ-9 Depression Total Score: 9 07/08/2020 3:59 PM WRAPPER STITCHER documented as of this encounter Care Teams Supervisor Pleating Relationship Specialty Start Date End Date Alberto Locke M.D. PCP - General Family Medicine 04/27/19 documented as of this encounter
--- OUTSIDE RECORDS SUMMARY | 2022-08-03 09:37 | XMS_ITS | Encounter Summary ---
:1985 Author Organization [facility] Address [address] [place] [address] Care Team Providers Name Role Phone Alberto Locke M.D. Primary Care Provider Reason for Visit Reason Comments Vomiting Diarrhea COVID Nurse Line Encounter Details Date Type Department Care Team Description 02/17/2022 Nurse Triage Department of [facility] Gina Su V omiting; Diarrhea; Medicine, [place] O, R.N. COVID Nurse Line Clinic, in [place], [address] [place] [address] [address] [facility] [phone] [place] [address] Social History Tobacco Use Types [...] 3 days. Patient was warm transferred to [place] at the clinic for further assistance. Reason for Disposition ? ? [1] MILD vomiting with diarrhea AND [2] present > 5 days Protocols used: [id number] Care Advice Patient/Caregiver understands and will follow [...] Powerade). * Other options: 1/2 strength flat lemon-manokotak soda or yenni stewart. * After 4 [...] RSV and Strep Select appropriate region: : [place] Are all of the following Strep criteria [...] frequently with soap and water, use hand buckler and lacer if soap and water aren't available. -Wear [...] care: Yes The following references were used: [facility] novel coronavirus (COVID- 19) resources documented in this encounter Plan of Treatment Not on filedocumented as of this encounter Visit Diagnoses Not on filedocumented in this encounter Additional Health Concerns Assessment Noted Time PHQ-9 Depression Total Score: 9 07/08/2020 3:59 PM QUILL MACHINE OPERATOR documented as of this encounter Care Teams Bid Manager Relationship Specialty Start Date End Date Alberto Locke M.D. PCP - General Family Medicine 04/27/19 documented as of this encounter
--- OUTSIDE RECORDS SUMMARY | 2022-08-03 09:37 | XMS_ITS | Encounter Summary ---
:1985 Author Organization [facility] Address [address] [place] [address] Care Team Providers Name Role Phone Alberto Locke M.D. Primary Care Provider Encounter Details Date Type Department Care Team Description 05/02/2022 Emergency [facility] [place], Carlie Bronchitis (Primary Department A, DRY CHAIN OPERATOR, C.N.P., Dx) [address] [place] [address] [address] [address] [place], [place] [phone] (Wo rk) Social History Tobacco Use [...] How often do you attend sabianism or worship More than 4 time s [...] sent through Care Everywhere. Acute Bronchitis Adult Yesl-vj-Xvga (Syrian)documented in this encounter Medications at Time of [...] Depression Total Score: 9 07/08/2020 3:59 PM APPLIANCE PARTS COUNTER CLERK documented as of this encounter Care Teams Acid Tester Relationship Specialty Start Date End Date Alberto Locke M.D. PCP - General Family Medicine 04/27/19 documented as of this encounter
--- OUTSIDE RECORDS SUMMARY | 2022-08-03 09:38 | XMS_ITS | Encounter Summary ---
:1985 Author Organization [facility] Address [address] [place] [address] Care Team Providers Name Role Phone Alberto Locke M.D. Primary Care Provider Reason for Referral Outpatient (Routine) - Closed Specialty Diagnoses / Procedures Referred By Contact Refer red To Contact Tammie Snyder APRN, C.NJud, M [facility] Kent M.S.N. [address] [place] [phone] Referral ID Status Reason Start Date Expiration Date Visits Requ ested Visits Authorized [id number] Closed 07/09/2020 07/09/2021 [address] [facility] ([facility]) ONLY. Please schedule as soon as possible within the next 24-48 hours. INE OPERATOR HOP PICKER Reason for Visit Appointment Request (Routine) - Closed Specialty Diagnoses / Procedures Referred By Contact Refer red To Contact Express or Urgent Care Referral ID Status Reason Start Date Expiration Date Visits Requ ested Visits Authorized [id number] Closed 07/09/2020 07/09/2021 1 1 Encounter Details Date Type Department Care Team Description 07/09/2020 Telemedicine [facility] Tammie Can Phar yngitis Acute Care at [facility] JOSEFA C.N.PBrittaney, (Primary Dx) [address] CUMMINGS M.S.NBrittaney [place], [place] [address] [place] [address] [place], [place] [phone] Social History Tobacco Use Types Packs/Day Years [...] or coughing. ?? Use an alcohol-based hand medicare specialist if washing your hands with soap and [...] [facility] ([facility]). All rights reserved. [id number] INE OPERATOR HOP PICKER documented in this encounter Progress Notes Tammie Snyder APRN, C.N.P., M.S.N. - 07/09/2020 11:20 AM CST CHIEF COMPLAINT Sore throat x 1 week Consult conducted via real-time audio/video technology by Tammie Snyder APRN C.N.PBrittaney in [facility] patient in their home. Visit was [...] exposure however the patient does work in the[employer] in [place]. She wears appropriate personal protective equipment while [...] strep swab to be completed at the [facility] via nurse only visit. Treat per protocol. If strep screen positive, a prescription for Penicillin V Potassium 500 mg PO, every 12 hours for 10days, tablet, will be sent to [facility] in [place]. Strep pharyngitis considered contagious until treated for [...] with primary care provider. Patient has a [facility] online portal account, can view medication list electronically. Ready to learn, no apparent learning barriers were identified; learning preferences include listening. Explained diagnosis and treatment plan; patient/child/caregiver expressed understanding of the content. INE OPERATOR HOP PICKER documented in this encounter Plan of Treatment Scheduled Referrals Name Type Priority Associated Diagnoses Order S janet Primary Care nurse Outpatient Referral Routine Ex pected: visit (clinic) - 07/09/2020, [facility] Region; Expires: Swabs; Throat 07/09/2023 documented as of this encounter Visit Diagnoses Diagnosis Pharyngitis Acute - Primary documented in this encounter Additional Health Concerns Assessment Noted Time PHQ-9 Depression Total Score: 9 07/08/2020 3:59 PM MACHINE OPERATOR HOP PICKER documented as of this encounter Care Teams Shadowgraph Operator Relationship Specialty Start Date End Date Alberto Locke M.D. PCP - General Family Medicine 04/27/19 documented as of this encounter
--- OUTSIDE RECORDS SUMMARY | 2022-08-03 09:38 | XMS_ITS | Encounter Summary ---
:1985 Author Organization [facility] Address [address] [place] [address] Care Team Providers Name Role Phone Alberto Locke M.D. Primary Care Provider Encounter Details Date Type Department Care Team Description 05/01/2021 Clinical Communication Department of [facility] Alberto Fregoso M.D. [address], in [id number] [place] [address] (Wo rk) [address] [phone] Social History Tobacco Use Types Packs/Day Years [...] How often do you attend confucianist or sabianism More than 4 time s [...] to pay for the very basics like [employer] hat hard 07/09/2020 food, housing, medical care, [...] the phone between 7 am-6 pm, Wednesday-Wednesday. [place]: [phone] [place]: [phone] [place]: [phone] [place]: [phone] [place]: [phone] [place]: [phone] [facility]: [phone] Stephen Noriegaland, [place], or [facility]: [phone] [place]:[phone] [place]: [phone] Thank you for trusting your health care to [facility]. documented in this encounter Plan of Treatment Not on filedocumented as of this encounter Visit Diagnoses Not on filedocumented in this encounter Additional Health Concerns Assessment Noted Time PHQ-9 Depression Total Score: 9 07/08/2020 3:59 PM SOLID WASTE TECHNICIAN documented as of this encounter Care Teams English As A Second Language Teacher Relationship Specialty Start Date End Date Alberto Locke M.D. PCP - General Family Medicine 04/27/19 documented as of this encounter
--- OUTSIDE RECORDS SUMMARY | 2022-08-03 09:38 | XMS_ITS | Encounter Summary ---
:1985 Author Organization [facility] Address [address] [place] [address] Care Team Providers Name Role Phone Alberto Locke M.D. Primary Care Provider Reason for Visit Reason Comments Urinary Tract Infection pt reports painful urination , urgency, and pressure Encounter Details Date Type Department Care Team Description 04/12/2021 Emergency [place] [facility] Berny Garcia Infabi garcia Urinary Tract Department Sera (Primary Dx) 701 [facility] 701 [place] [phone] (Wo rk) Social History Tobacco Use Types [...] + Susc, Urine (04/12/2021 8:49 PM CDT) [facility] [place] gist Method Time Signature Urine Culture ESCHERICHIA [...] City/State/ZIP Code Phon e Number [facility]- [address] [place] [address] [phone] [facility] [place] [address] System [address] (ABNORMAL) Microscopic Automated (04/12/2021 8:49 PM [...] City/State/ZIP Code Phon e Number [facility]- 701 [facility] [place], [place] [address] [facility] [place] [address] System in [place] 701 [facility] (ABNORMAL) Urinalysis with Microscopic if Indicated [...] 8.0 04/12/2021 9:03 PM CDT [facility] Specific [place] 1.022 1.001 - 1.035 04/12/2021 9:03 PM [...] City/State/ZIP Code Phon e Number [facility]- 701 [facility] [place], [place] [address] [address] [facility] [place] [address] System in [place] [address] [place] documented in this encounter Visit Diagnoses Diagnosis Infection Urinary Tract - Primary documented in this encounter Additional Health Concerns Assessment Noted Time PHQ-9 Depression Total Score: 9 07/08/2020 3:59 PM [facility] documented as of this encounter Care Teams Music Publisher Relationship Specialty Start Date End Date Alberto Locke M.D. PCP - General Family Medicine 04/27/19 documented as of this encounter
--- OUTSIDE RECORDS SUMMARY | 2022-08-03 09:38 | XMS_ITS | Encounter Summary ---
:1985 Author Organization [facility] Address [address] [place] [address] Care Team Providers Name Role Phone Alberto Locke M.D. Primary Care Provider Encounter Details Date Type Department Care Team Description 07/08/2020 Admin Visit Department of Family Medicine, [facility] in [place], [place] [address] [place] [address] Social History Tobacco Use Types Packs/Day [...] How often do you attend cheondoism or yazidi More than 4 time s [...] COVID19 Pending 07/08/2020 07/08/2020 07/09/2020 5:11 AM PROPELLER DRIVEN AIRPLANE MECHANIC Assessment Noted Time PHQ-9 Depression Total Score: 9 07/08/2020 3:59 PM PROPELLER DRIVEN AIRPLANE MECHANIC documented as of this encounter Care Teams Cement Car Dumper Relationship Specialty Start Date End Date Alberto Locke M.D. PCP - General Family Medicine 04/27/19 documented as of this encounter
--- OUTSIDE RECORDS SUMMARY | 2022-08-03 09:38 | XMS_ITS | Encounter Summary ---
:1985 Author Organization [facility] Address [address] [place] [address] Care Team Providers Name Role Phone Alberto Locke M.D. Primary Care Provider Reason for Referral Outpatient (Routine) - Closed Specialty Diagnoses / Procedures Referred By Contact Refer janell To Contact Orthopedic Surgery Diagnoses Pain Knee Left Suzanne Almodovar [facility] P.A.-C. [address] [place] [address] Referral ID Status Reason Start Date Expiration Date Visits Requ ested Visits Authorized [id number] Closed 04/14/2021 04/14/2022 1 1 Scheduling Instructions Ortho internal referral panel order, bobbi ging before Consult visit Reason for Visit Reason Comments Leg Pain Left Appointment Request (Routine) - Closed Specialty Diagnoses / Procedures Referred By Contact Refer janell To Contact Family Medicine Referral ID Status Reason Start Date Expiration Date Visits Requ ested Visits Authorized [id number] Closed 04/14/2021 04/14/2022 1 1 Encounter Details Date Type Department Care Team Description 04/14/2021 Office Visit Urgent Care in [facility] Suzanne Almodovar Pain Knee Left [place], [place] Nena, P.A.-C. (Primary Dx) 701 [facility] 701 [place], [place] [phone] Social History Tobacco Use Types Packs/Day [...] How often do you attend methodist or anglican More than 4 time s [...] biking or low impact water aerobics. ?? Zfll-pwv-mydnoin and prescription medications. Your health care provider may recommend xcyj-riq-ccfiqlu medications and prescribe medications to help with [...] Education and Research (MER). All rights reserved. [id number] documented in this encounter Progress Notes Suzanne [...] Total Score: 9 07/08/2020 3:59 PM EXECUTIVE ASSISTANT TO PRESIDENT documented as of this encounter Care Teams Contact Center Rep Relationship Specialty Start Date End Date Alberto Locke M.D. PCP - General Family Medicine 04/27/19 documented as of this encounter
--- OUTSIDE RECORDS SUMMARY | 2022-08-03 09:38 | XMS_ITS | Encounter Summary ---
:1985 Author Organization [facility] Address [address] [place] [address] Care Team Providers Name Role Phone Alberto Locke M.D. Primary Care Provider Encounter Details Date Type Department Care Team Description 03/12/2020 Hospital Encounter Department of [facility] laura Brown Laboratory Medicine Leonora Flaherty Other in [place] M[place] Viral Diseases [place] [address] (COVID-19) [address] [place] [address] [place] [phone] Social History Tobacco Use [...] How often do you attend confucianism or congregational More than 4 time s [...] Total Antibody, Serum (03/12/2020 5:36 PM CDT) [facility] Method Time Signature SARS-CoV-2 Negative Negative [...] was performed using the J[employer] El ecsys [id number] Reagent assay from [employer], which has received Emergency Use Authori zation(EUA) by the U.S. Food and Drug Administration . Fact sheets for this Emergency Use Autho rization (EUA) assay can be found at the following link s: For Healthcare Providers: https://www.fda.gov/media/410579/downloa d For Patients: https://www.fda.gov/media/863745/downloa d Specimen Anatomical Collection Method Collection Time Receive d Time (Source) Location / / Volume Laterality Blood (Blood, 03/12/2020 5:36 PM 03/13/20 20 3:23 Venous) CDT PM CDT Covid Serology Testing Employer Based LAB MICROBIOLOGY - BLOOD ORDERABLES Performing Organization Address City/State/ZIP Code Phon e Number [facility]- [address] [place] [phone] [facility] [place] [place] [address] System [address] documented in this encounter Visit Diagnoses Diagnosis Encounter For Screening For Other Viral Diseases (COVID-19) documented in this encounter Additional Health Concerns Assessment Noted Time PHQ-9 Depression Total Score: 11 03/05/2020 4:06 PM CD T documented as of this encounter Care Teams Associate Financial Planner Relationship Specialty Start Date End Date Alberto Locke M.D. PCP - General Family Medicine 04/27/19 documented as of this encounter
--- OUTSIDE RECORDS SUMMARY | 2022-08-03 09:38 | XMS_ITS | Encounter Summary ---
:1985 Author Organization [facility] Address [address] [place] [address] Care Team Providers Name Role Phone Alberto Locke M.D. Primary Care Provider Encounter Details Date Type Department Care Team Description 03/12/2020 Orders Only RST PCP HLTH MNT Alberto Locke M. D. [address] [place] [address] (Wo rk) Social [...] How often do you attend pentecostal or adventism More than 4 time s [...] documented as of this encounter Care Teams Government Clerk Relationship Specialty Start Date End Date Alberto Locke M.D. PCP - General Family Medicine 04/27/19 documented as of this encounter
--- OUTSIDE RECORDS SUMMARY | 2022-08-03 09:38 | XMS_ITS | Encounter Summary ---
:1985 Author Organization [facility] Address [address] [place] [address] Care Team Providers Name Role Phone Alberto Locke M.D. Primary Care Provider Reason for Visit Reason Comments Follow-up Outpatient (Routine) - Closed Specialty Diagnoses / Procedures Referred By Contact Refer red To Contact Family Medicine Alberto Locke M.D. [address]afa [place], [place] [address] Referral ID Status Reason Start Date Expiration Date Visits Requ ested Visits Authorized [id number] Closed 12/06/2019 12/05/2020 1 1 Encounter Details Date Type Department Care Team Description 03/05/2020 Office Visit Department of Family Alberto Locke M.D. Depression Major Recurrent (HCC) (Primar y Dx); [address] Mustafa Hypertension [facility], in [facility] [address] [place] [address] [place] [address] Social History Tobacco Use Types [...] How often do you attend druze or gnosticist More than 4 time s per year 07/09/2020 services? Do you belong to any clubs or organizations No 04/19/2019 such as druze groups, unions, fraBulletproof Group [employer] or athletic groups, or school groups? How [...] Index 50.0 To 59.9 Adult ([facility]) ??? Abuse Tobacco Smoking ??? Migraine Headache ??? Apnea Sleep Obstructive ??? Gastroesophageal Reflux Disease NOS ??? Attention Deficit With Hyperactivity Disorder ??? Depression Major Recurrent ([facility]) Current Outpatient Medications Medication Sig ??? [...] week Gets together: Once a week Attends gnosticist service: 1 to 4 times per year [...] SECTION; Surgeon: Xin De Leon M.D.; Location: [facility] OR ??? SECTION 04/12/2019 ??? ENDOSCOPIC RETROGRADE CHOLANGIOPANCREATOGRAPHY (ERCP) N/A 11/08/2017 Procedure: ENDOSCOPIC RETROGRADE CHOLANGIOPANCREATOGRAPHY; Surgeon: Rubio Baker M.D.; Location: [facility] OR ??? ESOPHAGOGASTRODUODENOSCOPY N/A 11/11/2017 Procedure: ESOPHAGOGASTRODUODENOSCOPY; Surgeon: Rubio Baker M.D.; Location: [facility] GI LAB ??? LAPAROSCOPIC APPENDECTOMY N/A 09/08/2017 Procedure: LAPAROSCOPIC APPENDECTOMY; Surgeon: Edd Moeller D.O.; Location: [facility] OR ??? LAPAROSCOPIC CHOLECYSTECTOMY WITH CHOLANGIOGRAM N/A 03/03/2018 Procedure: LAPAROSCOPIC CHOLECYSTECTOMY POSSIBLE CHOLANGIOGRAM; Surgeon: Edd Moeller D.O.; Location: [facility] OR ??? OTHER CONVERTED SHX [...] as of this encounter Care Teams Engineering Design Manager Relationship Specialty Start Date End Date Alberto Locke M.D. PCP - General Family Medicine 04/27/19 documented as of this encounter
--- OUTSIDE RECORDS SUMMARY | 2022-08-03 09:38 | XMS_ITS | Encounter Summary ---
:1985 Author Organization [facility] Address [address] [place] [address] Care Team Providers Name Role Phone Alberto Locke M.D. Primary Care Provider Reason for Visit Outpatient (Routine) - Closed Specialty Diagnoses / Procedures Referred By Contact Refer red To Contact Tammie Snyder APRN, C.NJud, M [facility] M.S.N. [address] [place] [phone] Referral ID Status Reason Start Date Expiration Date Visits Requ ested Visits Authorized [id number] Closed 07/09/2020 07/09/2021 1 1 Encounter Details Date Type Department Care Team Description 07/09/2020 Office Visit Urgent Care in [facility] Tammie Snyder APRN, C.NLebron., M.S.N. [address] [place] [phone] Pharyngitis [place], [place] Bree Burt L.PBrittaneyNBrittaney (Primary Dx) [address] [place] [address] Social History Tobacco Use Types [...] How often do you attend baptist or worship More than 4 time s [...] 07/09/2020 3:45 PM CST Strep test complete SSORIES REPAIRER documented in this encounter Miscellaneous Notes Result Encounter Note - Suzanne Almodovar P.A.-C. - 07/10/2020 12:53 PM ACCESSORIES REPAIRER Results were negative for strep. SSORIES REPAIRER documented in this encounter Plan of Treatment Not on filedocumented as of this encounter Procedures Procedure Name Priority Date/Time Associated Diagnosis Comme nts GROUP A STREP PCR, STAT 07/09/2020 4:04 PM Pharyngitis Acut e Results for this THROAT ACCESSORIES REPAIRER procedure are i n the results section. documented in this encounter Results Streptococcus Group A, Molecular Detection, PCR, Throat (07/09/2020 4:04 PM ACCESSORIES REPAIRER) P athologist Signature Group A Strep Negative Negative 07/09/2020 [facility] PCR, Throat 4:36 PM ACCESSORIES REPAIRER Specimen Anatomical Collection Method Collection Time Receive d Time (Source) Location / / Volume Laterality Varies (Throat) 07/09/2020 4:04 PM 2019 4:04 ACCESSORIES REPAIRER PM ACCESSORIES REPAIRER Erlin Link P.A.-C. LAB MICROBIOLOGY - GENERAL O RDERABLES Performing Organization Address City/State/ZIP Code Phon e Number [facility]- [address] [facility] [place], [place] [address] [facility] [address] System in [place] [address] [place] documented in this encounter Visit Diagnoses Diagnosis Pharyngitis Acute - Primary documented in this encounter Additional Health Concerns Assessment Noted Time PHQ-9 Depression Total Score: 9 07/08/2020 3:59 PM ACCESSORIES REPAIRER documented as of this encounter Care Teams Java Application Developer Relationship Specialty Start Date End Date Alberto Locke M.D. PCP - General Family Medicine 04/27/19 documented as of this encounter
--- OUTSIDE RECORDS SUMMARY | 2022-08-03 09:38 | XMS_ITS | Encounter Summary ---
:1985 Author Organization [facility] Address [address] [place] [address] Care Team Providers Name Role Phone Alberto Locke M.D. Primary Care Provider Reason for Referral Outpatient (Routine) - Closed Specialty Diagnoses / Procedures Referred By Contact Refer red To Contact Diagnoses Primary Osteoarthritis Knee Left Pain Knee Left Berny Robert [facility] [place] Procedures zce-ozqe-usgaztbe-elbow arthrocentesis: L knee joint M.D. [address] [place] [address] Referral ID Status Reason Start Date Expiration Date Visits Requ ested Visits Authorized [id number] Closed 04/23/2021 04/23/2022 1 1 Physical Therapy (Routine) - Closed Specialty Diagnoses / Procedures Referred By Contact Refer red To Contact Diagnoses Pain Knee Left Primary Osteoarthritis Knee Left Primary Osteoarthritis Knee Right Body Mass Index 60.0 To 69.9 Adult ([facility]) Berny Robert [facility] [place] [facility] Procedures PT Evaluate and treat M.D. [address] [place] [address] Referral ID Status Reason Start Date Expiration Date Visits Requ ested Visits Authorized [id number] Closed 04/23/2021 04/23/2022 1 1 Reason for Visit Outpatient (Routine) - Closed Specialty Diagnoses / Procedures Referred By Contact Refer red To Contact Orthopedic Surgery Diagnoses Pain Knee Left Suzanne Almodovar [facility] NEHEMIAH Rivera [address] Referral ID Status Reason Start Date Expiration Date Visits Requ ested Visits Authorized [id number] Closed 04/14/2021 04/14/2022 1 1 Encounter Details Date Type Department Care Team Description 04/23/2021 Comprehensive Visit Department of Jakob, Primary Osteoarthritis Knee Left (Primary Dx); Orthopedic Surgery Malia Son Pain Knee Left; in [place] [facility] Primary Osteoarthritis Knee Right; [place], [place] Body Mass Index 60.0 To 69.9 Adult ([facility]) [address] [facility] [address] [place] [phone] [address] (Work) [phone] Social History Tobacco Use Types Packs/Day Years [...] How often do you attend episcopalian or scientologist More than 4 time s [...] M.D. - 04/23/2021 10:15 AM CDTAssociated Order(s): vwg-xuow-zkxmpnjv-elbow arthrocentesis: L knee joint Post-Procedure Diagnose(s): Primary [...] Location: [facility] OR ??? SECTION 04/12/2019 ??? [...] Body Mass Index 60.0 To 69.9 Adult ([facility]) Discussed diagnosis and natural history of osteoarthritis. Both surgical and conservative treatment options were discussed today, and recommendation was made for conservative treatment consisting of activity modifications, weight loss, pain management with NSAIDs and/or Tylenol, and intermittent intra-articular corticosteroid or viscosupplementation injections. After discussion, patient was in agreement with plan.She is going to take dcjp-djy-cyxqczv pain medications on an as-needed basis for pain control. She was provided with left knee intra- articular corticosteroid injection(s) in clinic today. She was also referred to formal physical therapy. She will return for follow-up on an as-needed basis. documented in this encounter Plan of Treatment Not on filedocumented as of this encounter Procedures Procedure Name Priority Date/Time Associated Diagnosis Comme nts MA ARTHCS ASP/INJ Routine 04/23/2021 10:41 Primary Osteoarthri tis Results for this MJR JT WO US AM CDT Knee Left procedure are in Pain Knee Left the results section. documented in this encounter Results MA ARTHCS ASP/INJ MJR JT WO US (04/23/2021 [...] Depression Total Score: 9 07/08/2020 3:59 PM JOB PRESS FEEDER documented as of this encounter Care Teams Self Contained Behavior Unit Teacher Relationship Specialty Start Date End Date Alberto Locke M.D. PCP - General Family Medicine 04/27/19 documented as of this encounter
--- OUTSIDE RECORDS SUMMARY | 2022-08-03 09:38 | XMS_ITS | Encounter Summary ---
:1985 Author Organization [facility] Address [address] [place] [address] Care Team Providers Name Role Phone Alberto Locke M.D. Primary Care Provider Encounter Details Date Type Department Care Team Description 11/22/2020 Orders Only [facility] PCP TH Sa emma Lemos M.D. [address] [place], [place] [phone] (Wo rk) Social History Tobacco Use Types [...] How often do you attend synagogue or orthodoxy More than 4 time s [...] Total Score: 9 07/08/2020 3:59 PM SENIOR POLICY ADVISOR documented as of this encounter Care Teams Diver Assistant Relationship Specialty Start Date End Date Alberto Locke M.D. PCP - General Family Medicine 04/27/19 documented as of this encounter
--- OUTSIDE RECORDS SUMMARY | 2022-08-03 09:38 | XMS_ITS | Encounter Summary ---
:1985 Author Organization [facility] Address [address] [place] [address] Care Team Providers Name Role Phone Alberto Locke M.D. Primary Care Provider Reason for Visit Reason Onset Date Comments Outpatient COVID-19 Testing 03/05/2020 Encounter Details Date Type Department Care Team Description 03/05/2020 External Outreach Department of Employer Based, [facility], Covid Serology Screening For Other [facility], in Testing Viral Di [place], [place] (COVID-19) (Primary [address] Dx) [place] [address] Social History Tobacco Use Types [...] to pay for the very basics like [employer] hard 07/09/2020 food, housing, medical care, [...] Scrn, Blood Spot (03/05/2020 9:10 AM CDT) [facility] Method Time Signature SARS-CoV-2 Reactive (A) Negative 03/06/2020 [facility] IgG Emp Scrn, 3:24 PM [...] Testing was performed using the [employer] N Rfdo-KVBC-YmX-2 DONADL (IgG). ??This test has received Emergency Use Authorization (EUA) by the U.S. Food and Drug Administration and is used per making machine catcher's instructions, but it is modified from the making machine catcher's instructions wit h a bridging study to include dried blood spot specimens. ? ? Performance characteristics were verifie d by [facility] in a manner consistent with CLIA require ments. Specimen Anatomical Collection Method Collection Time Receive d Time (Source) Location / / Volume Laterality Blood (Blood, 03/05/2020 9:10 AM 03/05/20 20 8:50 Venous) CDT PM CDT Covid Serology Testing Employer Based LAB MICROBIOLOGY - BLOOD ORDERABLES Performing Organization Address City/State/ZIP Code Phon e Number [facility] [address] [place], [place] [address] [place] [address] [place] [address] Laboratory Medicine and Pathology [address] [place] documented in this encounter Visit Diagnoses Diagnosis Encounter For Screening For Other Viral Diseases (COVID-19) - Primary documented in this encounter Additional Health Concerns Assessment Noted Time PHQ-9 Depression Total Score: 11 03/05/2020 4:06 PM CD T documented as of this encounter Care Teams Hangersmith Relationship Specialty Start Date End Date Alberto Locke M.D. PCP - General Family Medicine 04/27/19 documented as of this encounter
--- OUTSIDE RECORDS SUMMARY | 2022-08-03 09:38 | XMS_ITS | Encounter Summary ---
:1985 Author Organization [facility] Address [address] [place] [address] Care Team Providers Name Role Phone Alberto Locke M.D. Primary Care Provider Reason for Referral Outpatient (Routine) - Closed Specialty Diagnoses / Procedures Referred By Contact Refer red To Contact Diagnoses Insertion Intrauterine Device Leonora Reaves APRN, [facility] Region Procedures IUD - Insertion or Reinsertion w/removal C.N.P. [address] [place] [address] Referral ID Status Reason Start Date Expiration Date Visits Requ ested Visits Authorized [id number] Closed 08/07/2020 08/07/2021 1 1 R BAGS SEWING MACHINE OPERATOR Reason for Visit Reason Comments Contraception Outpatient (Routine) - Closed Specialty Diagnoses / Procedures Referred By Contact Refer red To Contact Obstetrics and Diagnoses PAR Leonora Reaves APRN, [facility]ne[facility] C.N.P. [address] [place] [address] Referral ID Status Reason Start Date Expiration Date Visits Requ ested Visits Authorized [id number] Closed 07/24/2020 07/24/2021 1 1 Encounter Details Date Type Department Care Team Description 08/07/2020 Office Visit Department of Leonora Reaves, Insertion In trauterine Obstetrics and JOSEFA C.N.P. Device (Primary Dx) Gynecology in [place] [address] [facility] [place] [address] [facility] [address] NEHEMIAH GRANT [phone] [address] (Work) [phone] Social History Tobacco Use Types Packs/Day Years [...] How often do you attend shinto or synagogue More than 4 time s [...] Comments Blood Pressure 138/82 08/07/2020 10:53 AM PAPER BAGS SEWING MACHINE OPERATOR Pulse - - Temperature - - Respiratory Rate - - Oxygen Saturation - - Inhaled Oxygen Concentration - - Weight 150 kg (330 lb 11 oz) 08/07/2020 10:53 AM PAPER BAGS SEWING MACHINE OPERATOR Height - - Body Mass Index [...] appropriate location of the IUD is verified. BASIC ACOUSTIC ANALYST R BAGS SEWING MACHINE OPERATOR documented in this encounter Plan of Treatment Not on filedocumented as of this encounter Procedures Procedure Name Priority Date/Time Associated Diagnosis Comme nts VT INSERT OF Routine 08/07/2020 11:00 Insertion Results for this INTRAUTERINE DEVICE AM PAPER BAGS SEWING MACHINE OPERATOR Intrauterine Device p rocedure are in the results section. documented in this encounter Results VT INSERT OF INTRAUTERINE DEVICE (08/07/2020 11:00 AM PAPER BAGS SEWING MACHINE OPERATOR) Narrative MMODAL - 08/07/2020 11:00 AM PAPER BAGS SEWING MACHINE OPERATOR Leonora Reaves WHNP-BC RBrittaneyN. ? 08/07/2020 [...] is the second attempt at IUD in [facility] in approximately 2 weeks time. Today, as [...] mcg/24 hours (6 Given 08/07/2020 11:30 AM PAPER BAGS SEWING MACHINE OPERATOR 1 each yrs) 52 mg IUD 1 each (MIRENA) 1 each, intrauterine, One-Time Injection, Starting on Wed08/07/20 at 1130, For 1 dose documented in this encounter Additional Health Concerns Assessment Noted Time PHQ-9 Depression Total Score: 9 07/08/2020 3:59 PM PAPER BAGS SEWING MACHINE OPERATOR documented as of this encounter Care Teams Optical Instrument Assembly Supervisor Relationship Specialty Start Date End Date Alberto Locke M.D. PCP - General Family Medicine 04/27/19 documented as of this encounter
--- OUTSIDE RECORDS SUMMARY | 2022-08-03 09:38 | XMS_ITS | Encounter Summary ---
:1985 Author Organization [facility] Address [address] [place] [address] Care Team Providers Name Role Phone Alberto Locke M.D. Primary Care Provider Reason for Visit Reason Comments Leg Pain lower right leg,red,swollen, ,alittle painful,for few weeks Outpatient (Routine) - Closed Specialty Diagnoses / Procedures Referred By Contact Refer red To Contact Family Medicine Alberto Locke M.D. [address] [place] [address] Referral ID Status Reason Start Date Expiration Date Visits Requ ested Visits Authorized [id number] Closed 12/06/2019 12/05/2020 1 1 Encounter Details Date Type Department Care Team Description 12/06/2019 Office Visit Department of Alberto Campbell M.D. [address] [place] [address] Dr [place] [id number] Pain Lower Leg Right (Primary Dx); Medicine, [place] N[place] Beck M.D. [address] [place] [address] Swelling Leg Right; Clinic, [place], Pain Ne ck; [place] Depression Major Recurrent ( HCC); [address] [place], [place] [address]TT [facility] Body Mass Index 50.0 To 59.9 Adult (HCC); [place] [address] Social History Tobacco [...] How often do you attend gnosticism or christian More than 4 time s [...] symptoms she should be seen in a kzrb-rb-xaohncubk to rule out DVT. No fever, chills, [...] of these at a local store or [employer] 2. Episodic neck pain with radiation down [...] calm down and physical therapy is seenpeople zncv-js-gegc and then can request a referral at [...] as of this encounter Care Teams Outside Solar Sales Consultant Relationship Specialty Start Date End Date Alberto Locke M.D. PCP - General Family Medicine 04/27/19 documented as of this encounter
--- OUTSIDE RECORDS SUMMARY | 2022-08-03 09:38 | XMS_ITS | Encounter Summary ---
:1985 Author Organization [facility] Address [address] [place] [address] Care Team Providers Name Role Phone Alberto Locke M.D. Primary Care Provider Reason for Visit Reason Onset Date Comments Outpatient COVID-19 Testing 07/08/2020 Encounter Details Date Type Department Care Team Description 07/08/2020 External Outreach Department of Yamel Sandoval Infection Upper Medicine, [place] Marcio SanchezARavi Respiratory (Primary Clinic, in [place], [address]x) [place], [place] [address] [address] [place], [place] [phone] [address] (Work) [phone] Social History Tobacco Use Types Packs/Day Years [...] How often do you attend pentecostalism or adventism More than 4 time s [...] Encounter created for the drive-through COVID-19 testing. TREATMENT OFFSIDER documented in this encounter Plan of Treatment Not on filedocumented as of this encounter Procedures Procedure Name Priority Date/Time Associated Diagnosis Comme nts SARS CORONAVIRUS-2 Routine 07/08/2020 1:34 PM Infection Upper Results for this RNA, V WELL TREATMENT OFFSIDER Respiratory procedure are i n the results section. documented in this encounter Results SARS Coronavirus-2 RNA, V Symptomatic (07/08/2020 1:34 PM WELL TREATMENT OFFSIDER) [facility] Method Time Signature SARS-CoV-2 Swab, 07/09/2020 ECLR Specimen Nasopharynx 5:11 AM WELL TREATMENT OFFSIDER Source SARS CoV-2 Undetected Undetected 07/09/2020 ECLR RNA, TMA 5:11 AM WELL TREATMENT OFFSIDER Comment: SARS-CoV-2 RNA absent. This result does not rule out COVID-19 in the patient, as the sensitivity of the test depends o n the timing of the specimen collection and the quality of the specim en. Result should be correlated with patient's history and clinical presentat ion. ----ADDITIONAL INFORMATION---- This test is performed using the Aptima SARS-CoV-2 assay ([employer] which has received Emergency Use Authori zation (EUA) by the U.S. Food and Drug Administration. Fact sheets for this Emergency Use Autho rization (EUA) assay can be found at the following links: For Healthcare Providers: https://www.fd a.gov/media/415064/download For Patients: https://www.fda.gov/media/ 777836/download Specimen Anatomical Collection Method Collection Time Receive d Time (Source) Location / / Volume Laterality Varies 07/08/2020 1:34 PM 0 9:39 (Nasopharynx) WELL TREATMENT OFFSIDER PM WELL TREATMENT OFFSIDER Venu [place] P.A.-C. LAB MICROBIOLOGY - GENERAL O RDERABLES Performing Organization Address City/State/ZIP Code Phon e Number [facility]- [address] [place] [phone] [facility] [place] [address] System [address] documented in this encounter Visit Diagnoses Diagnosis Infection Upper Respiratory - Primary documented in this encounter Additional Health Concerns Infection Onset Date Last Indicated Resolved Time COVID19 Pending 07/08/2020 07/08/2020 07/09/2020 5:11 AM WELL TREATMENT OFFSIDER Assessment Noted Time PHQ-9 Depression Total Score: 9 07/08/2020 3:59 PM WELL TREATMENT OFFSIDER documented as of this encounter Care Teams Delivery Engineer Relationship Specialty Start Date End Date Alberto Locke M.D. PCP - General Family Medicine 04/27/19 documented as of this encounter
--- OUTSIDE RECORDS SUMMARY | 2022-08-03 09:38 | XMS_ITS | Encounter Summary ---
:1985 Author Organization [facility] Address [address] [place] [address] Care Team Providers Name Role Phone Alberto Locke M.D. Primary Care Provider Reason for Referral Outpatient (Routine) - Closed Specialty Diagnoses / Procedures Referred By Contact Refer red To Contact Obstetrics and Diagnoses PAR Leonora Reaves, JOSEFA, MIGDALIAS [facility] Gynecology C.N.P. [address] [place] [phone] Referral ID Status Reason Start Date Expiration Date Visits Requ ested Visits Authorized [id number] Closed 07/24/2020 07/24/2021 1 1 Scheduling Instructions IUD insertion IGRAPHER Reason for Visit Reason Comments Annual Exam Appointment Request (Routine) - Closed Specialty Diagnoses / Procedures Referred By Contact Refer red To Contact Obstetrics and Gynecology Referral ID Status Reason Start Date Expiration Date Visits Requ ested Visits Authorized [id number] Closed 07/24/2020 07/24/2021 1 1 Encounter Details Date Type Department Care Team Description 07/24/2020 Office Visit Department of Leonora Reaves Preventive G ynecological Exam (Primary Dx); Obstetrics and JOSEFA, C.N.P. Pap Smear Examination; Gynecology in [facility] [address] Migraine Headache; [facility] [place] Abuse Tobacco Smoking; 0 [facility] [phone] Body Mass Index 60.0 To 69.9 Adult (HCC) ; [facility] [place] [phone] Depression Olimpia r Recurrent ([facility]) [phone] (Work) [phone] Social History Tobacco Use Types Packs/Day Years [...] How often do you attend baptist or shinto More than 4 time s [...] Comments Blood Pressure 144/76 07/24/2020 1:03 PM MULTIGRAPHER Pulse - - Temperature - - Respiratory Rate - - Oxygen Saturation - - Inhaled Oxygen Concentration - - Weight 151 kg (332 lb 14.3 oz) 07/24/2020 1:03 PM MULTIGRAPHER Height - - Body Mass Index 61.26 [...] 3. Is due for a Pap smear ORACLE APPLICATION ARCHITECT HISTORY: Last Pap 2016 and was NIL. [...] SECTION; Surgeon: Xin De Leon M.D.; Location: [facility] OR ??? SECTION 04/12/2019 ??? ENDOSCOPIC RETROGRADE CHOLANGIOPANCREATOGRAPHY (ERCP) N/A 11/08/2017 Procedure: ENDOSCOPIC RETROGRADE CHOLANGIOPANCREATOGRAPHY; Surgeon: Rubio Baker M.D.; Location: [facility] OR ??? ESOPHAGOGASTRODUODENOSCOPY N/A 11/11/2017 Procedure: ESOPHAGOGASTRODUODENOSCOPY; Surgeon: Rubio Baker M.D.; Location: [facility] GI LAB ??? LAPAROSCOPIC APPENDECTOMY N/A 09/08/2017 Procedure: LAPAROSCOPIC APPENDECTOMY; Surgeon: Edd Moeller D.O.; Location: [facility] OR ??? LAPAROSCOPIC CHOLECYSTECTOMY WITH CHOLANGIOGRAM N/A 03/03/2018 Procedure: LAPAROSCOPIC CHOLECYSTECTOMY POSSIBLE CHOLANGIOGRAM; Surgeon: Edd Moeller D.O.; Location: [facility] OR ??? OTHER CONVERTED SHX [...] with logging foods in roque such as Escapia or something comparable, making small changes as [...] blood/lymph issues: Yes No urinary/reproductive issues: Yes IGRAPHER documented in this encounter Plan of Treatment Scheduled Referrals Name Type Priority Associated Order Schedule Diagnoses Obstetrics and Outpatient Referral Routine Expect ed: Gynecology office 07/24/2020 visit (clinic) (Approximate) , Expires: 07/24/2023 documented as of this encounter Procedures Procedure Name Priority Date/Time Associated Diagnosis Comme nts THINPREP W/HPV Routine 07/24/2020 1:43 PM Pap Smear Results for this CO-TEST SCREEN MULTIGRAPHER Examination procedure are in the results section. HPV WITH Routine 07/24/2020 1:43 PM Results f or this GENOTYPING, PCR, MULTIGRAPHER procedure a re in THINPREP the results section. documented in this encounter Results HPV with Genotyping, PCR, ThinPrep (07/24/2020 1:43 PM MULTIGRAPHER) [facility] gist Method Time Signature Specimen Thin Prep 07/29/2020 DTL Source Vial, 4:25 PM MULTIGRAPHER Cervix/Endoc ervix HPV High Risk Negative Negative 07/29/2020 DTL type 16, PCR 4:25 PM MULTIGRAPHER HPV High Risk Negative Negative 07/29/2020 DTL type 18, PCR 4:25 PM MULTIGRAPHER HPV other Negative Negative 07/29/2020 DTL High Risk 4:25 PM MULTIGRAPHER types, PCR Comment: The following Other High Risk HPV types were not detected: 31, 33, 35, 39, 45, 51, 52, 56, 58, 59, 66, and 68 This test was ordered in the context of a [facility] ORACLE APPLICATION ARCHITECT Cytology case; this result should be int erpreted within the context of the ORACLE APPLICATION ARCHITECT cytology report. Specimen Anatomical Collection Method Collection Time Receive d Time (Source) Location / / Volume Laterality Varies 07/24/2020 1:43 PM 0 MULTIGRAPHER 10:27 AM MULTIGRAPHER Leonora Reaves APRN, C.N.P. LAB MICROBIOLOGY - GENERAL O RDERABLES Performing Organization Address City/State/ZIP Code Phon e Number [facility] - [address] [place], [place] [address] [facility] [address] Laboratories-[facility] [address] [facility] ThinPrep w/HPV Co-Test Screen (07/24/2020 1:43 PM MULTIGRAPHER) Component Value Ref Test Analysis Performed Pathologis t Range Method Time At Signature 07/30/2020 ECLR 2:28 PM MULTIGRAPHER Disclaimer High risk HPV testing, Real-Time Polymerase Chain Reac tion 07/30/2020 ECLR (PCR) was performed on the liquid-based cytology specimen 2:28 PM at [place], [place]. Report LISSETT Foley(ASCP) 07/30/2020 ECL R electronically I verify that I have examined all relevant slides/ma terials 2:28 PM signed by for the specimen(s) and rendered or confirmed the diagnosis. MULTIGRAPHER Gross Description Received specimen 07/30/2020 ECL R in a ThinPrep 2:28 PM vial. MULTIGRAPHER Pap Test Source Cervical/Endocervi 07/30/2020 ECLR huma 2:28 PM MULTIGRAPHER Interpretation Cervical/Endocervical ??(ThinPrep): 07/30/2020 ECLR Satisfactory for Evaluation 2:28 PM Endocervical/transformation zone components absent MULTIGRAPHER Negative for Intraepithelial Lesion or Malignancy ??High [...] Laterality Varies 07/24/2020 1:43 PM 0 (Cervix/Endocerv MULTIGRAPHER 10:27 AM CS T ix) Narrative This result has an attachment that is no t available. Leonora Reaves APRN, C.N.P. LAB PAP PATHDX ORDERABLES Performing Organization Address City/State/ZIP Code Phon e Number [facility]- [address] [place] [phone] [facility] [place] [address] System [address] documented in this encounter Visit Diagnoses Diagnosis Preventive Gynecological Exam - Primary Pap Smear Examination Migraine Headache Abuse Tobacco Smoking Body Mass Index 60.0 To 69.9 Adult (HCC) Depression Major Recurrent (HCC) documented in this encounter Additional Health Concerns Assessment Noted Time PHQ-9 Depression Total Score: 9 07/08/2020 3:59 PM MULTIGRAPHER documented as of this encounter Care Teams Rubber Belt Splicer Relationship Specialty Start Date End Date Alberto Locke M.D. PCP - General Family Medicine 04/27/19 documented as of this encounter
--- OUTSIDE RECORDS SUMMARY | 2022-08-03 09:38 | XMS_ITS | Encounter Summary ---
:1985 Author Organization [facility] Address [address] [place] [address] Care Team Providers Name Role Phone Alberto Locke M.D. Primary Care Provider Encounter Details Date Type Department Care Team Description 07/08/2020 Clinical Communication Department of [facility] Alberto Fregoso M.D. [address], in [id number] [place] [address] (Wo rk) [address] [phone] Social History Tobacco Use Types Packs/Day Years [...] not improve. Thank you for the information ANCE LEARNING COORDINATOR Telephone Encounter - Venu Collins P.A.-C. - 07/08/2020 11:29 AM DISTANCE LEARNING COORDINATOR Currently only COVID swabs can be performed at the testing site. This may change in the future. ANCE LEARNING COORDINATOR Telephone Encounter - Karey Carballo L.PBrittaneyNBrittaney - 07/08/2020 11:20 AM DISTANCE LEARNING COORDINATOR I believe just covid test are done at the [facility] site? Will ask Venu ANCE LEARNING COORDINATOR Telephone Encounter - Cristine Ramesh - 07/08/2020 [...] Thanks Name of Medication (if relevant): N/A ANCE LEARNING COORDINATOR documented in this encounter Plan of Treatment Not on filedocumented as of this encounter Visit Diagnoses Not on filedocumented in this encounter Additional Health Concerns Infection Onset Date Last Indicated Resolved Time COVID19 Pending 07/08/2020 07/08/2020 07/09/2020 5:11 AM DISTANCE LEARNING COORDINATOR Assessment Noted Time PHQ-9 Depression Total Score: 9 07/08/2020 3:59 PM DISTANCE LEARNING COORDINATOR documented as of this encounter Care Teams Scientific Aide Relationship Specialty Start Date End Date Alberto Locke M.D. PCP - General Family Medicine 04/27/19 documented as of this encounter
--- OUTSIDE RECORDS SUMMARY | 2022-08-03 09:38 | XMS_ITS | Encounter Summary ---
:1985 Author Organization [facility] Address [address] [place] [address] Care Team Providers Name Role Phone Alberto Locke M.D. Primary Care Provider Encounter Details Date Type Department Care Team Description 12/06/2019 Hospital Encounter Department of Ebony, Nuno W, Pain L ower Leg Right; [facility] Sw[facility] Right [address] [phone] Social History Tobacco Use Types Packs/Day Years [...] How often do you attend shinto or amish More than 4 time s [...] to pay for the very basics like Attentive.lyw hat hard 07/09/2020 food, housing, medical care, [...] documented as of this encounter Care Teams Clerk Telegraph Service Relationship Specialty Start Date End Date Alberto Locke M.D. PCP - General Family Medicine 04/27/19 documented as of this encounter
--- OUTSIDE RECORDS SUMMARY | 2022-08-03 09:38 | XMS_ITS | Encounter Summary ---
:1985 Author Organization [facility] Address [address] [place] [address] Care Team Providers Name Role Phone Alberto [...] How often do you attend zoroastrian or latter-day More than 4 time s [...] was performed using the [employer]ys [id number] Reagent assay from [employer], which has received Emergency Use Authori zation(EUA) by the U.S. Food and Drug Administration . Fact sheets for this Emergency Use Autho rization (EUA) assay can be found at the following link s: For Healthcare Providers: https://www.fda.gov/media/472006/downloa d For Patients: https://www.fda.gov/media/866625/downloa d Specimen Anatomical Collection Method Collection Time Receive d Time (Source) Location / / Volume Laterality Blood (Blood, 03/12/2020 5:36 PM 03/13/20 20 3:23 Venous) CDT PM CDT Covid Serology Testing Employer Based LAB MICROBIOLOGY - BLOOD ORDERABLES Performing Organization Address City/State/ZIP Code Phon e Number [facility]- [address] [place] [address] 33 [phone] [facility] [place] [address] System [address] documented in this encounter Visit Diagnoses Diagnosis Encounter For Screening For Other Viral Diseases (COVID-19) - Primary documented in this encounter Additional Health Concerns Assessment Noted Time PHQ-9 Depression Total Score: 11 03/05/2020 4:06 PM CD T documented as of this encounter Care Teams Radio Rigger Relationship Specialty Start Date End Date Alberto Locke M.D. PCP - General Family Medicine 04/27/19 documented as of this encounter
--- OUTSIDE RECORDS SUMMARY | 2022-08-03 09:38 | XMS_ITS | Encounter Summary ---
:1985 Author Organization [facility] Address [address] [place] [address] Care Team Providers Name Role Phone Alberto Locke M.D. Primary Care Provider Encounter Details Date Type Department Care Team Description 11/29/2020 Immunization Department of [facility] Ian Hays, Medicine, [place] M.DBrittaney Professional Building, in [address] [place], [place] [address] [facility] [address] [address] [place] [address] [phone] Social History Tobacco Use Types Packs/Day Years [...] How often do you attend congregational or scientology More than 4 time s [...] Depression Total Score: 9 07/08/2020 3:59 PM NATUROPATH documented as of this encounter Care Teams Electric Trucker Relationship Specialty Start Date End Date Alberto Locke M.D. PCP - General Family Medicine 04/27/19 documented as of this encounter
--- OUTSIDE RECORDS SUMMARY | 2022-08-03 09:38 | XMS_ITS | Encounter Summary ---
:1985 Author Organization [facility] Address [address] [place] [address] Care Team Providers Name Role Phone Alberto Locke M.D. Primary Care Provider Encounter Details Date Type Department Care Team Description 04/14/2021 Hospital Encounter Department of Suzanne Almodovar Pain Knee Left Radiology [place] P.ABrittaney-Marlyn Quispe [address] [phone] Social History Tobacco Use Types Packs/Day Years [...] How often do you attend jewish or scientology More than 4 time s [...] Depression Total Score: 9 07/08/2020 3:59 PM TEAR DOWN WORKER documented as of this encounter Care Teams Bag Maker Relationship Specialty Start Date End Date Alberto Locke M.D. PCP - General Family Medicine 04/27/19 documented as of this encounter
--- OUTSIDE RECORDS SUMMARY | 2022-08-03 09:38 | XMS_ITS | Encounter Summary ---
:1985 Author Organization [facility] Address [address] [place] [address] Care Team Providers Name Role Phone Alberto Locke M.D. Primary Care Provider Reason for Visit Reason Comments Med Refill Encounter Details Date Type Department Care Team Description 05/05/2021 [place], [place] Refill [place] [facility] [address] [facility] [address] [place] [address] [place] [address] [phone] (Wo rk) Social History Tobacco Use Types [...] How often do you attend catholic or orthodoxy More than 4 time s [...] Depression Total Score: 9 07/08/2020 3:59 PM CLOTHER IN documented as of this encounter Care Teams Groundman/Lineman Relationship Specialty Start Date End Date Alberto Locke M.D. PCP - General Family Medicine 04/27/19 documented as of this encounter
--- OUTSIDE RECORDS SUMMARY | 2022-08-03 09:39 | XMS_ITS | Encounter Summary ---
:1985 Author Organization [facility] Address [address] [place] [address] Care Team Providers Name Role Phone Blaire Bundy P.A.-C. Primary Care Provider [phone] Reason for Visit Reason Comments Post-op Visit Outpatient (Routine) - Closed Specialty Diagnoses / Procedures Referred By Contact Refer red To Contact Obstetrics and Diagnoses PAR Melany Montoya [facility] Gynecology NURSE UNIT MANAGER, CHRISTOPH, M.S.N., B.S.N., R.N. [address] [place] [address] Referral ID Status Reason Start Date Expiration Date Visits Requ ested Visits Authorized [id number] Closed 04/19/2019 04/18/2020 1 1 Encounter Details Date Type Department Care Team Description 04/20/2019 Office Visit Department of Melany Montoya, S ection Obstetrics and JOSEFA, CHRISTOPH, Delivery ([facility] ) Gynecology in [facility] M.S.N., B.S.N., (Primar y Dx) [place], [place] R.N. [address] [facility] [address] [place] [address] Social History Tobacco Use [...] How often do you attend amish or voodoo More than 4 time s [...] as of this encounter Care Teams Sports Marketer Relationship Specialty Start Date End Date Blaire Bundy P.A.-C. PCP - General 02/04/17 04/26/19 documented as of this encounter
--- OUTSIDE RECORDS SUMMARY | 2022-08-03 09:39 | XMS_ITS | Encounter Summary ---
:1985 Author Organization [facility] Address [address] [place] [address] Care Team Providers Name Role Phone Alberto Locke M.D. Primary Care Provider Reason for Visit Reason Comments URI Appointment Request (Routine) - Closed Specialty Diagnoses / Procedures Referred By Contact Refer red To Contact Family Medicine Referral ID Status Reason Start Date Expiration Date Visits Requ ested Visits Authorized [id number] Closed 09/11/2019 09/10/2020 1 1 Encounter Details Date Type Department Care Team Description 09/11/2019 Office Visit Department of Family Gerda [facility] (Primary Dx); Medicine, [place] MARKET SURVEY REPRESENTATIVE, C.N.P., Phar yngitis Acute; Clinic, in [place] D.N.PBrittaney Body Mass Index 50.0 To 59.9 Adult (HCC) ; [place] [address] Abuse Tobacco Smoking [address] [place] [address] [phone] Social History Tobacco Use Types Packs/Day Years [...] How often do you attend anabaptism or mandaen More than 4 time s [...] Comments Blood Pressure 130/73 09/11/2019 9:34 AM DIRECTOR [place]ANGE Pulse 92 09/11/2019 9:34 AM DIRECTOR [place]ANGE Temperature 35.7 ??C (96.3 ??F) 09/11/2019 9:34 AM DIRECTOR [place]ANGE Respiratory Rate - - Oxygen Saturation 95% 09/11/2019 9:34 AM DIRECTOR [place]ANGE Inhaled Oxygen Concentration - - Weight 136 kg (299 lb 13.2 oz) 09/11/2019 9:34 AM DIRECTOR [place]ANGE Height - - Body Mass Index 54.82 [...] No h/o asthma. No fever reducers today. CTOR [place]ANGE Gerda Pike APRN, C.NJud, D.N.P. - 09/11/2019 [...] the content. Gerda Pike APRN, C.N.P., D.N.P. CTOR ORANGE documented in this encounter Plan of Treatment Not on filedocumented as of this encounter Procedures Procedure Name Priority Date/Time Associated Diagnosis Comme nts INFLUENZA A, B, Routine 09/11/2019 10:29 AM Resul ts for this RSV, PCR, POCT DIRECTOR ORANGE procedure are in the results section. STREP GROUP A, PCR, Routine 09/11/2019 10:17 AM R esults for this POCT DIRECTOR ORANGE procedure are i n the results section. STREP GROUP A, PCR, Routine 09/11/2019 9:52 AM Pharyngitis Acu te Results for this POCT DIRECTOR ORANGE procedure are i n the results section. INFLUENZA A, B, Routine 09/11/2019 9:52 AM Cough Result s for this RSV, PCR, POCT DIRECTOR ORANGE procedure are in the results section. documented in this encounter Results Influenza A/B and RSV, PCR, Point of Care (09/11/2019 10:29 AM DIRECTOR ORANGE) P athologist Signature Influenza A, Negative Negative 09/11/2019 CNFL POCT 10:29 AM DIRECTOR [place] Influenza B, Negative Negative 09/11/2019 CNFL POCT 10:29 AM DIRECTOR [place]ANGE Resp Syncytial Negative Negative 09/11/2019 CNFL Virus, POCT 10:29 AM DIRECTOR [place]ANGE Specimen Anatomical Collection Method Collection Time Receive d Time (Source) Location / / Volume Laterality Varies 09/11/2019 10:29 09/11/2019 AM DIRECTOR [place]ANGE 10:30 AM DIRECTOR [place]ANGE Generic Rals LAB POCT ORDERABLES - DEVICE Performing Organization Address [facility] Phon e Number [address] [address] [place] [address] System in [address] Strep Group A, PCR, Point of Care (09/11/2019 10:17 AM DIRECTOR ORANGE) athologist Signature Strep Group A, Negative Negative 09/11/2019 CNFL PCR, POCT 10:17 AM DIRECTOR [place] Specimen Anatomical Collection Method Collection Time Receive d Time (Source) Location / / Volume Laterality Varies 09/11/2019 10:17 09/11/2019 AM DIRECTOR [place]ANGE 10:21 AM DIRECTOR [place]ANGE Generic Rals LAB POCT ORDERABLES - DEVICE Performing Organization Address [facility] Phon e Number [address] [address] [place] [address] System [address] Strep Group A, PCR, Point of Care (09/11/2019 9:52 AM DIRECTOR [place]) Analysis Performed At Patho logist Time Signature Strep Group A, Collected DEFAULT 09/11/2019 CNFL PCR, POCT 9:58 AM DIRECTOR [place] Specimen Anatomical Collection Method Collection Time Receive d Time (Source) Location / / Volume Laterality Varies (Throat) 09/11/2019 9:52 AM 2019 9:58 DIRECTOR ORANGE AM DIRECTOR ORANGE Marlyn Camacho APRN.N.P., D.N.P. LAB POCT ORDERABL ES - DEVICE Performing Organization Address [facility] Code Phon e Number [address] [address] [place] [address] System [address] Influenza A/B and RSV, PCR, Point of Care (09/11/2019 9:52 AM DIRECTOR [place]) Analysis Performed At Patho logist Time Signature Influenza A, Collected DEFAULT 09/11/2019 CNFL B, RSV, PCR, 9:58 AM DIRECTOR [place] POCT Specimen Anatomical Collection Method Collection Time Receive d Time (Source) Location / / Volume Laterality Varies 09/11/2019 9:52 AM 0 9:58 (Nasopharynx) DIRECTOR ORANGE AM DIRECTOR [place]ANGE Marlyn Camacho APRN.N.P., D.N.P. LAB POCT ORDERABL ES - DEVICE Performing Organization Address [facility] Code Phon e Number [address] [address] [place] [address] System in [address] documented in this encounter Visit Diagnoses Diagnosis Cough Unspecified Type - Primary Pharyngitis Acute Body Mass Index 50.0 To 59.9 Adult (HCC) Abuse Tobacco Smoking documented in this encounter Additional Health Concerns Assessment Noted Time PHQ-9 Depression Total Score: 3 05/30/2019 10:59 AM CD T documented as of this encounter Care Teams Parking Lot Chauffeur Relationship Specialty Start Date End Date Alberto Locke M.D. PCP - General Family Medicine 04/27/19 documented as of this encounter
--- OUTSIDE RECORDS SUMMARY | 2022-08-03 09:39 | XMS_ITS | Encounter Summary ---
:1985 Author Organization [facility] Address [address] [place] [address] Care Team Providers Name Role Phone Alberto Locke M.D. Primary Care Provider Reason for Visit Reason Comments Care 6 week check Outpatient (Routine) - Closed Specialty Diagnoses / Procedures Referred By Contact Refer red To Contact Obstetrics and Diagnoses Section Delivery (HCC) Harleen Josue D.O. [facility] Gynecology [address] [place] [phone] Referral ID Status Reason Start Date Expiration Date Visits Requ ested Visits Authorized [id number] Closed 04/15/2019 04/14/2020 1 1 Encounter Details Date Type Department Care Team Description 05/30/2019 Office Visit Department of Leonora Reaves, Care Postpar fercho ([facility]) (Primary Dx); Obstetrics and BROOMMAKING SUPERVISOR, C.N.P. Section Delivery ([facility]); Gynecology in [address] [place] [address] [address] [place], [place] [phone] [address] (Work) [phone] Social History Tobacco Use Types Packs/Day Years [...] How often do you attend buddhist or rastafari More than 4 time s [...] in this encounter Progress Notes Leonora Reaves, BROOMMAKING SUPERVISOR, C.N.P. - 05/30/2019 11:00 AM CDT SUBJECTIVE [...] Xin De Leon M.D.; Location: [facility] OR ??? ENDOSCOPIC RETROGRADE CHOLANGIOPANCREATOGRAPHY (ERCP) N/A 11/08/2017 Procedure: ENDOSCOPIC RETROGRADE CHOLANGIOPANCREATOGRAPHY; Surgeon: Rubio Baker M.D.; Location: [facility] OR ??? ESOPHAGOGASTRODUODENOSCOPY N/A 11/11/2017 Procedure: ESOPHAGOGASTRODUODENOSCOPY; Surgeon: Rubio Baker M.D.; Location: [facility] LAB ??? LAPAROSCOPIC APPENDECTOMY N/A 09/08/2017 Procedure: LAPAROSCOPIC APPENDECTOMY; Surgeon: Edd Moeller D.O.; Location: [facility] OR ??? LAPAROSCOPIC CHOLECYSTECTOMY WITH CHOLANGIOGRAM N/A 03/03/2018 Procedure: LAPAROSCOPIC CHOLECYSTECTOMY POSSIBLE CHOLANGIOGRAM; Surgeon: Edd Moeller D.O.; Location: [facility] OR ??? OTHER CONVERTED SHX (SEE COMMENT) [...] abstinent at this time. Consult placed to [facility] MERCHANDISING TEAM LEAD #2 Section Delivery (HCC) Mackenzie type rash [...] documented as of this encounter Care Teams Jetting Machine Operator Relationship Specialty Start Date End Date Alberto Locke M.D. PCP - General Family Medicine 04/27/19 documented as of this encounter
--- OUTSIDE RECORDS SUMMARY | 2022-08-03 09:39 | XMS_ITS | Encounter Summary ---
:1985 Author Organization [facility] Address [address] [place] [address] Care Team Providers Name Role Phone Alberto Locke M.D. Primary Care Provider Encounter Details Date Type Department Care Team Description 04/25/2019 Orders Only Department of Family Alberto Locke M.D. [facility] [address] [place] [address] [facility], in [place], [place] [phone] [place] [address] [place] [address] [place] [phone] Social History Tobacco Use Types Packs/Day [...] How often do you attend religious or moravian More than 4 time s [...] as of this encounter Care Teams Certified Physician Assistant Relationship Specialty Start Date End Date Alberto Locke M.D. PCP - General Family Medicine 04/27/19 documented as of this encounter
--- OUTSIDE RECORDS SUMMARY | 2022-08-03 09:39 | XMS_ITS | Encounter Summary ---
:1985 Author Organization [facility] Address [address] [place] [address] Care Team Providers Name Role Phone Alberto Locke M.D. Primary Care Provider Encounter Details Date Type Department Care Team Description 06/16/2019 Clinical Communication Department of [facility] Alberto Fregoso M.D. [address], in [id number] [place] [address] (Wo rk) [address] [phone] Social History Tobacco Use Types Packs/Day Years [...] How often do you attend confucianism or tenriism More than 4 time s [...] Jayshree HAWKINS. Please return her call at [phone]. documented in this encounter Plan of Treatment Not on filedocumented as of this encounter Visit Diagnoses Not on filedocumented in this encounter Additional Health Concerns Assessment Noted Time PHQ-9 Depression Total Score: 3 05/30/2019 10:59 AM CD T documented as of this encounter Care Teams Sales Agent [employer] Insurance Relationship Specialty Start Date End Date Alberto Locke M.D. PCP - General Family Medicine 04/27/19 documented as of this encounter
--- OUTSIDE RECORDS SUMMARY | 2022-08-03 09:39 | XMS_ITS | Encounter Summary ---
:1985 Author Organization [facility] Address [address] [place] [address] Care Team Providers Name Role Phone Alberto Locke M.D. Primary Care Provider Encounter Details Date Type Department Care Team Description 07/03/2019 Orders Only Department of Family Alberto Locke M.D. [facility] [address] [place] [address] Dr Mustafa [facility], in [place], [place] [address] [place] [address] [place] [address] [place] [phone] Social History Tobacco Use Types Packs/Day [...] How often do you attend latter-day or pentecostalism More than 4 time s [...] documented as of this encounter Care Teams Bruise Trimmer Relationship Specialty Start Date End Date Alberto Locke M.D. PCP - General Family Medicine 04/27/19 documented as of this encounter
--- OUTSIDE RECORDS SUMMARY | 2022-08-03 09:39 | XMS_ITS | Encounter Summary ---
:1985 Author Organization [facility] Address [address] [place] [address] Care Team Providers Name Role Phone Alberto Locke M.D. Primary Care Provider Reason for Visit Reason Comments COVID Nurse Line Encounter Details Date Type Department Care Team Description 12/06/2019 Clinical Communication Division of Emerita Pereira Nurse Line [facility] L, R.N. [facility] [address] [place] [phone] [place] [phone] [address] [facility] (Work) [place] [address] Social History Tobacco Use Types Packs/Day Years [...] How often do you attend tenriism or yarsani More than 4 time s [...] and water aren't available, use a hand car salter that contains at least 60% alcohol. Avoid [...] essential items or medical care). Educational Resource: https://www.cdc.gov/coronavirus/2019-ncov/ishdejj-pgdaqrl-fsim/index.html Education: patient/caregiver Patient/caregiver able to teach back Patient agreeable to plan of care: Yes The following references were used: [facility] novel coronavirus (COVID- 19) resources documented in this encounter Plan of Treatment Not on filedocumented as of this encounter Visit Diagnoses Not on filedocumented in this encounter Additional Health Concerns Assessment Noted Time PHQ-9 Depression Total Score: 6 12/06/2019 10:58 AM CD T documented as of this encounter Care Teams Mutuel Cashier Relationship Specialty Start Date End Date Alberto Locke M.D. PCP - General Family Medicine 04/27/19 documented as of this encounter
--- OUTSIDE RECORDS SUMMARY | 2022-08-03 09:39 | XMS_ITS | Encounter Summary ---
:1985 Author Organization [facility] Address [address] [place] [address] Care Team Providers Name Role Phone Alberto Locke M.D. Primary Care Provider Encounter Details Date Type Department Care Team Description 10/17/2019 Orders Only Department of Pediatrics in [facility] cynthia [place], [place] P.A.-C. [address] [facility] [address] [place] [address] [place] [phone] (Wo rk) Social History Tobacco Use Types [...] How often do you attend yarsanism or muslim More than 4 time s [...] as of this encounter Care Teams Customer Relations Representative Relationship Specialty Start Date End Date Alberto Locke M.D. PCP - General Family Medicine 04/27/19 documented as of this encounter
--- OUTSIDE RECORDS SUMMARY | 2022-08-03 09:39 | XMS_ITS | Encounter Summary ---
:1985 Author Organization [facility] Address [address] [place] [address] Care Team Providers Name Role Phone Blaire Bundy P.A.-C. Primary Care Provider Reason for Referral Outpatient (Routine) - Closed Specialty Diagnoses / Procedures Referred By Contact Refer red To Contact Obstetrics and Diagnoses PAR Melany Montoya [facility] Gynecology CHRISTOPH RIVERO, M.S.N., B.S.N., R.N. [address] [facility] [place] [address] Referral ID Status Reason Start Date Expiration Date Visits Requ ested Visits Authorized [id number] Closed 04/19/2019 04/18/2020 1 1 Scheduling Instructions Add to my schedule 0815 Reason for Visit Reason Comments Post-op Visit Encounter Details Date Type Department Care Team Description 04/19/2019 Office Visit Department of Melany Montoya, S ection Obstetrics and CHRISTOPH RIVERO, Delivery ([facility] ) Gynecology in [facility] M.S.NBrittaney, B.S.N., (Primar y Dx) [place], [place] R.N. 701 [facility] [address] [facility] [place] [address] [phone] Social History Tobacco Use Types Packs/Day Years [...] How often do you attend confucianist or presybeterian More than 4 time s [...] documented as of this encounter Care Teams Audit Control Clerk Relationship Specialty Start Date End Date Blaire Bundy P.A.-C. PCP - General 02/04/17 04/26/19 documented as of this encounter
--- OUTSIDE RECORDS SUMMARY | 2022-08-03 09:39 | XMS_ITS | Encounter Summary ---
:1985 Author Organization [facility] Address [address] [place] [address] Care Team Providers Name Role Phone Blaire [...] seen for a Consultation on 04/17/19 at [facility] [place] class for weight and feeding check. OBJECTIVE [...] as of this encounter Care Teams Office Clerk Relationship Specialty Start Date End Date Blaire Bundy P.A.-C. PCP - General 02/04/17 04/26/19 documented as of this encounter
--- OUTSIDE RECORDS SUMMARY | 2022-08-03 09:39 | XMS_ITS | Encounter Summary ---
:1985 Author Organization [facility] Address [address] [place] [address] Care Team Providers Name Role Phone Alberto Locke M.D. Primary Care Provider Reason for Referral Outpatient (Routine) - Closed Specialty Diagnoses / Procedures Referred By Contact Refer red To Contact Family Alberto Hercules M.D. [facility] [address] [place], [place] [address] Referral ID Status Reason Start Date Expiration Date Visits Requ ested Visits Authorized [id number] Closed 05/31/2019 05/30/2020 1 1 Scheduling Instructions Dep Reason for Visit Reason Comments Care Recheck anemia Outpatient (Routine) - Closed Specialty Diagnoses / Procedures Referred By Contact Refer red To Contact Family Alberto Hercules M.D. [facility] [address] [place], [place] [address] Referral ID Status Reason Start Date Expiration Date Visits Requ ested Visits Authorized [id number] Closed 04/27/2019 04/26/2020 1 1 Encounter Details Date Type Department Care Team Description 05/31/2019 Office Visit Department of Alberto Campbell M.D. Anemia (HCC) (Prima ry Dx); [address] [place]afa Depression Major Recurrent (HCC) Clinic, in [facility] [address] [place] [address] [place] [address] Social History Tobacco Use Types [...] How often do you attend confucianism or mu-ism More than 4 time s [...] Depression Major Recurrent ([facility]) ??? Section Delivery ([facility]) ??? Anemia ([facility]) Current Outpatient Medications Medication Sig ??? buPROPion [...] week Gets together: Once a week Attends mu-ism service: 1 to 4 times per year [...] visit (clinic) Nov 30, 2019 (Approximate) Region: [facility] Region Provider needed?: Self Visit length: Long Visit type: General Dep documented in this encounter Plan of Treatment Scheduled Referrals Name Type Priority Associated Diagnoses Order S [facility] Family Medicine Outpatient Referral Routine Expec pipe: office visit 11/30/2019 (clinic) (Approximate), Expires: 05/31/2022 documented as of this encounter Visit Diagnoses Diagnosis Anemia (HCC) - Prim shonna Depression Major Recurrent (HCC) documented in this encounter Additional Health Concerns Assessment Noted Time PHQ-9 Depression Total Score: 3 05/30/2019 10:59 AM CD T documented as of this encounter Care Teams Continuity Director Relationship Specialty Start Date End Date Alberto Locke M.D. PCP - General Family Medicine 04/27/19 documented as of this encounter
--- OUTSIDE RECORDS SUMMARY | 2022-08-03 09:39 | XMS_ITS | Encounter Summary ---
:1985 Author Organization [facility] Address [address] [place] [address] Care Team Providers Name Role Phone Alberto Locke M.D. Primary Care Provider Encounter Details Date Type Department Care Team Description 05/31/2019 Hospital Encounter Department of Alberto Locke M.D. Anemia Laboratory Medicine [address] [place] (HCC) in [place], [place] [address] [place] [address] [place], [place] [phone] [address] (Work) [phone] Social History Tobacco Use Types Packs/Day Years [...] Phon e Number [facility]- [address] [place] [address] [phone] [place] [address] System in [place] [facility] documented in this encounter Visit Diagnoses Diagnosis Anemia (HCC) documented in this encounter Additional Health Concerns Assessment Noted Time PHQ-9 Depression Total Score: 3 05/30/2019 10:59 AM CD T documented as of this encounter Care Teams Lead Injection Mold Technician Relationship Specialty Start Date End Date Alberto Locke M.D. PCP - General Family Medicine 04/27/19 documented as of this encounter
--- OUTSIDE RECORDS SUMMARY | 2022-08-03 09:39 | XMS_ITS | Encounter Summary ---
:1985 Author Organization [facility] Address [address] [place] [address] Care Team Providers Name Role Phone Alberto Locke M.D. Primary Care Provider Reason for Referral Outpatient (Routine) - Closed Specialty Diagnoses / Procedures Referred By Contact Refer red To Contact Family Medicine Alberto Locke M.D. [address] [place], [place] [address] Referral ID Status Reason Start Date Expiration Date Visits Requ ested Visits Authorized [id number] Closed 04/27/2019 04/26/2020 1 1 Scheduling Instructions Depression, anemia Reason for Visit Reason Comments Establish Care Anemia post Encounter Details Date Type Department Care Team Description 04/27/2019 Comprehensive Visit Department of Alberto Locke M.D. Anemia (HCC) (Prima ry Dx); [address] [place] Hypotension; [facility], Abuse Tobacco Smoking; in [place], [place] Body Mass Index 50.0 To 59.9 Adult ([facility]); [place] [id number] Depression Major Recurrent ([facility]) [address] [facility] [phone] [place] ([place]) [address] [phone] Social History Tobacco Use Types Packs/Day Years [...] How often do you attend hinduism or taoist More than 4 time s [...] She will discus permanent sterilization at upcoming FOOD TRUCK CATERER follow up. Patient Active Problem List Diagnosis ??? Body Mass Index 50.0 To 59.9 Adult ([facility]) ??? Abuse Tobacco Smoking ??? Migraine Headache ??? Apnea Sleep Obstructive ??? Gastroesophageal Reflux Disease NOS ??? Attention Deficit With Hyperactivity Disorder ??? Depression Major Recurrent ([facility]) ??? Section Delivery ([facility]) Current [...] SECTION; Surgeon: Xin De Leon M.D.; Location: [facility] OR ??? ENDOSCOPIC RETROGRADE CHOLANGIOPANCREATOGRAPHY (ERCP) N/A 11/08/2017 Procedure: ENDOSCOPIC RETROGRADE CHOLANGIOPANCREATOGRAPHY; Surgeon: Rubio Baker M.D.; Location: [facility] OR ??? ESOPHAGOGASTRODUODENOSCOPY N/A 11/11/2017 Procedure: ESOPHAGOGASTRODUODENOSCOPY; Surgeon: Rubio Baker M.D.; Location: [facility] GI LAB ??? LAPAROSCOPIC APPENDECTOMY N/A 09/08/2017 Procedure: LAPAROSCOPIC APPENDECTOMY; Surgeon: Edd Moeller D.O.; Location: [facility] OR ??? LAPAROSCOPIC CHOLECYSTECTOMY WITH CHOLANGIOGRAM N/A 03/03/2018 Procedure: LAPAROSCOPIC CHOLECYSTECTOMY POSSIBLE CHOLANGIOGRAM; Surgeon: Edd Moeller D.O.; Location: [facility] OR ??? OTHER CONVERTED [...] Adult ([facility]) Because of patient's elevated BMI recommendations were made for moderate exercise of 30 minutes fivetimes per week in the form of walking or similar activity. Diet modification recommendations included reducing portion size and increasing the amount of fruits and vegetables. She will discuss weight loss meds with DRUG CLERK #5 Depression Major Recurrent (HCC) I will [...] Priority Associated Diagnoses Order S [facility] Outpatient Referral Routine Expec pipe: office [...] Code Phon e Number [facility]- [address] [place], [place] [address] [address] [place] [address] System in [place] [address] [place] documented in this encounter Visit Diagnoses Diagnosis Anemia (HCC) - Prim shonna Other Hypotension Abuse Tobacco Smoking Body Mass Index 50.0 To 59.9 Adult (HCC) Depression Major Recurrent (HCC) documented in this encounter Additional Health Concerns Assessment Noted Time PHQ-9 Depression Total Score: 7 04/07/2017 9:39 AM CDT documented as of this encounter Care Teams Conversion Developer Relationship Specialty Start Date End Date Alberto Locke M.D. PCP - General Family Medicine 04/27/19 documented as of this encounter
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
--- OUTSIDE RECORDS SUMMARY | 2022-08-03 09:39 | XMS_ITS | Encounter Summary ---
:1985 Author Organization [facility] Address [address] [place] [address] Care Team Providers Name Role Phone Alberto Locke M.D. Primary Care Provider Reason for Referral Outpatient (Routine) - Closed Specialty Diagnoses / Procedures Referred By Contact Refer red To Contact Family Alberto Hercules M.D. [facility] [address] [place], [place] [address] Referral ID Status Reason Start Date Expiration Date Visits Requ ested Visits Authorized [id number] Closed 12/06/2019 12/05/2020 1 1 Scheduling Instructions Face to face or virtual depending on COV ID restrictions at that time ehavioral Health (Routine) - Closed Specialty Diagnoses / Procedures Referred By Contact Refer red To Contact Psychiatry / Diagnoses Depression Major Recurrent (HCC) Alberto Locke M.D. [facility] Psychiatry and [address] [place] [address] [place] [address] Referral ID Status Reason Start Date Expiration Date Visits Requ ested Visits Authorized [id number] Closed 12/06/2019 12/05/2020 1 1 utpatient (Routine) - Closed Specialty Diagnoses / Procedures Referred By Contact Refer red To Contact Family Alberto Hercules M.D. [facility] [address] [place], [place] [address] Referral ID Status Reason Start Date Expiration Date Visits Requ ested Visits Authorized [id number] Closed 12/06/2019 12/05/2020 1 1 Scheduling Instructions Face to face family med but must do COVI D triage clearance first Reason for Visit Reason Comments Follow-up ? lab -hgb Outpatient (Routine) - Closed Specialty Diagnoses / Procedures Referred By Contact Refer red To Contact Family Medicine Alberto Locke M.D. [address] Mustafa [place], [place] [address] Referral ID Status Reason Start Date Expiration Date Visits Requ ested Visits Authorized [id number] Closed 05/31/2019 05/30/2020 1 1 Encounter Details Date Type Department Care Team Description 12/06/2019 Virtual Visit Department of Family Alberto Locke M.D. Depression Major Recurrent (HCC) (Primar y Dx); [facility], [address] Mustafa Edema Ankle Right [facility], in [facility] [id number] [place] [address] [place] [address] Social History Tobacco Use Types [...] How often do you attend jew or judaism More than 4 time s [...] Hyperactivity Disorder ??? Depression Major Recurrent ([facility] Current Outpatient Medications Medication Sig [...] week Gets together: Once a week Attends judaism service: 1 to 4 times per year [...] SECTION; Surgeon: Xin De Leon M.D.; Location: [facility] OR ??? ENDOSCOPIC RETROGRADE CHOLANGIOPANCREATOGRAPHY (ERCP) N/A 11/08/2017 Procedure: ENDOSCOPIC RETROGRADE CHOLANGIOPANCREATOGRAPHY; Surgeon: Rubio Baker M.D.; Location: [facility] OR ??? ESOPHAGOGASTRODUODENOSCOPY N/A 11/11/2017 Procedure: ESOPHAGOGASTRODUODENOSCOPY; Surgeon: Rubio Baker M.D.; Location: [facility] GI LAB ??? LAPAROSCOPIC APPENDECTOMY N/A 09/08/2017 Procedure: LAPAROSCOPIC APPENDECTOMY; Surgeon: Edd Moeller D.O.; Location: [facility] OR ??? LAPAROSCOPIC CHOLECYSTECTOMY WITH CHOLANGIOGRAM N/A 03/03/2018 Procedure: LAPAROSCOPIC CHOLECYSTECTOMY POSSIBLE CHOLANGIOGRAM; Surgeon: Edd Moeller D.O.; Location: [facility] OR ??? OTHER CONVERTED SHX (SEE [...] I will refer her semi urgently to [facility] social work #2 Edema Ankle Right Due to asymmetrical nature of this LE edema she will need to be seen face to face in [facility] med today I will have her [...] office visit (clinic) Dec 06, 2019 Region: [facility] Region Provider needed?: Other Provider Specific [...] (Approximate) Semi Urg - virtual ok Region: [facility] Region Visit type: Social Work Assessment [...] visit (clinic) January 05, 2020 (Approximate) Region: [facility] Region Provider needed?: Self Visit length: [...] documented as of this encounter Care Teams Rat Breeder Relationship Specialty Start Date End Date Alberto Locke M.D. PCP - General Family Medicine 04/27/19 documented as of this encounter
--- OUTSIDE RECORDS SUMMARY | 2022-08-03 09:40 | XMS_ITS | Encounter Summary ---
:1985 Author Organization [facility] Address [address] [place] [address] Care Team Providers Name Role Phone Blaire Bundy P.A.-C. Primary Care Provider [phone] Reason for Referral Outpatient (Routine) - Closed Specialty Diagnoses / Procedures Referred By Contact Refer red To Contact Diagnoses Gallstone Edd Moeller D.O. [facility] Region Procedures FL Fluoro Less Than 1 Hour AR FLUOROSCOPY EXAM UP TO 1 HR HC FLUOROSCOPY EXAM UP TO 1 HR AR FLUOROSCOPY EXAM UP TO 1 HR [address] [place] [address] Referral ID Status Reason Start Date Expiration Date Visits Requ ested Visits Authorized [id number] Closed 03/03/2018 03/03/2019 1 1 Reason for Visit Auth/Cert Specialty Diagnoses / Procedures Referred By Contact Refer red To Contact Diagnoses Gallstone With Common Bile Duct Stone Procedures AR LAPAROSCOPY CHOLECYST W CHOLNG LAPAROSCOPIC CHOLECYSTECTOMY WITH CHOLANGIOGRAM Referral ID Status Reason Start Date Expiration Date Visits Requ ested Visits Authorized [id number] 1 1 Encounter Details Date Type Department Care Team Description 03/03/2018 Hospital Encounter Department of Radiology Raphael Moeller, [place] in [place] [address] [place] [address] [place] [address] [phone] (Wo rk) Social History Tobacco Use Types [...] How often do you attend episcopalian or amish More than 4 time s [...] Time Received Time / Laterality Volume Narrative [id number] - 03/03/2018 10:01 AM CDT This exam does not require a radiologist review or interpretation. Please refer to the patient? s medical record on this date for clinical details. Edd CH FLUOROSCOPY PROCEDURES Performing Organization Address City/State/ZIP Code Phon e Number [id number] NA documented in this encounter Visit Diagnoses Diagnosis Gallstone documented in this encounter Additional Health Concerns Assessment Noted Time PHQ-9 Depression Total Score: 7 04/07/2017 9:39 AM CDT documented as of this encounter Care Teams Test Consultant Relationship Specialty Start Date End Date Blaire Bundy P.A.-C. PCP - General 02/04/17 04/26/19 documented as of this encounter
--- OUTSIDE RECORDS SUMMARY | 2022-08-03 09:40 | XMS_ITS | Encounter Summary ---
:1985 Author Organization [facility] Address [address] [place] [address] Care Team Providers Name Role Phone Blaire Bundy P.A.-C. Primary Care Provider [phone] Reason for Visit Reason Onset Date Comments assessment 07/01/2018 First call attempt Encounter Details Date Type Department Care Team Description 07/01/2018 Clinical Communication Department of Leonora Reaves Pr egnancy Obstetrics and JOSEFA C.N.PBrittaney assessment (First Gynecology in [address] call attem pt) [address] [phone] Social History Tobacco Use Types Packs/Day [...] How often do you attend restorationism or mormon More than 4 time s [...] Maurice Ivey R.N. - 07/04/2018 8:40 AM BIOGEOGRAPHER Addended by: MAURICE IVEY on: 07/04/2018 08:40 AM Modules accepted: Orders EOGRAPHER Telephone Encounter - Maurice Ivey R.N. - 07/04/2018 8:36 AM BIOGEOGRAPHER If yes to any of the following [...] intercourse for two weeks before the procedure EOGRAPHER Telephone Encounter - Jayshree Morocho R.N. - 07/01/2018 2:39 PM CST Attempted to contact pt. Left message on identifiable VM to [facility] for more information EOGRAPHER Telephone Encounter - Tejal Arora - 07/01/2018 2:00 PM CST Dear Nurse, Patient is not on control and would like to have Nexplanon or an IUD placed. Is there a way you can call Carol and see if a test is needed, prior to appointment. Thank you, Tejal [employer] EOGRAPHER documented in this encounter Plan of Treatment Not on filedocumented as of this encounter Results Test, POCT, Urine (lab) (07/20/2018 10:24 AM BIOGEOGRAPHER) P athologist Signature Negative 07/20/2018 [facility] Test, POCT, U 10:[address] [facility] Specimen Anatomical Collection Method Collection Time Receive d Time (Source) Location / / Volume Laterality Urine (Urine, 07/20/2018 10:24 07/20/2018 Clean Catch) AM BIOGEOGRAPHER 10:24 AM BIOGEOGRAPHER Marisol Irving APRN C.N.P. LAB POCT ORDERABLES - DEVICE Performing Organization Address City/State/ZIP Code Phon e Number [facility] [address] [facility] [place] [address] [facility] documented in this encounter Visit Diagnoses Diagnosis Contraception Personal History - Primary documented in this encounter Additional Health Concerns Assessment Noted Time PHQ-9 Depression Total Score: 7 04/07/2017 9:39 AM CDT documented as of this encounter Care Teams Stem Cutter Relationship Specialty Start Date End Date Blaire Bundy P.A.-C. PCP - General 02/04/17 04/26/19 documented as of this encounter
--- OUTSIDE RECORDS SUMMARY | 2022-08-03 09:40 | XMS_ITS | Encounter Summary ---
:1985 Author Organization [facility] Address [address] [place] [address] Care Team Providers Name Role Phone Blaire Bundy P.A.-C. Primary Care Provider Encounter Details Date Type Department Care Team Description 03/14/2018 Orders Only Department of Gloria Johnson High Risk Medication Orthopedic Surgery in [place] (Primary Dx) [place], [place] [address] FABIAN [address] [place] [phone] [phone] Social History Tobacco Use Types Packs/Day Years [...] How often do you attend baptism or episcopal More than 4 time s [...] documented as of this encounter Care Teams Hospice Social Worker Relationship Specialty Start Date End Date Blaire Bundy P.A.-C. PCP - General 02/04/17 04/26/19 documented as of this encounter
--- OUTSIDE RECORDS SUMMARY | 2022-08-03 09:40 | XMS_ITS | Encounter Summary ---
:1985 Author Organization [facility] Address [address] [place] [address] Care Team Providers Name Role Phone Blaire Bundy P.A.-C. Primary Care Provider [phone] Reason for Visit Reason Comments Post-op Lap emma 03/03/18 Outpatient (Routine) - Closed Specialty Diagnoses / Procedures Referred By Contact Refer red To Contact General Surgery Diagnoses Gallstone With Common Bile Duct Stone par review Edd Moeller, [facility] Procedures GNS POST OP D.O. [address] [place] [address] Referral ID Status Reason Start Date Expiration Date Visits Requ ested Visits Authorized [id number] Closed 03/03/2018 03/03/2019 1 1 Encounter Details Date Type Department Care Team Description 03/16/2018 Office Visit Department of General Edd Moeller Ga llstone With Common Surgery in Jason Rivera D.O. Bile Duct Stone [place] [address] [facility] [address] [place] [address] [place] [phone] [address] (Work) [phone] Social History Tobacco Use Types Packs/Day Years [...] How often do you attend yazidism or lutheran More than 4 time s [...] happy to reevaluate as needed Job ID: [id number] documented in this encounter Plan of Treatment [...]
--- OUTSIDE RECORDS SUMMARY | 2022-08-03 09:40 | XMS_ITS | Encounter Summary ---
:1985 Author Organization [facility] Address [address] [place] [address] Care Team Providers Name Role Phone Blaire Bundy P.A.-C. Primary Care Provider [phone] Encounter Details Date Type Department Care Team Description 07/20/2018 Hospital Encounter Department of Marisol Irving Contrace ption Personal Laboratory Medicine MASTER BAKER, C.N.P. History in [address] [address] [place], [place] [phone] (Work) [phone] Social History Tobacco Use Types Packs/Day Years [...] How often do you attend voodoo or pentecostalism More than 4 time s [...] Results for this POCT, U (LAB) AM BATCH UNIT TREATER History procedure are in the results section. documented in this encounter Results Test, POCT, Urine (lab) (07/20/2018 10:24 AM BATCH UNIT TREATER) P athologist Signature Negative 07/20/2018 [facility] Test, POCT, U 10:31 AM BATCH UNIT TREATER [facility] Specimen Anatomical Collection Method Collection Time Receive d Time (Source) Location / / Volume Laterality Urine (Urine, 07/20/2018 10:24 07/20/2018 Clean Catch) AM BATCH UNIT TREATER 10:24 AM BATCH UNIT TREATER Marisol Irving APRN, C.N.P. LAB POCT ORDERABLES - DEVICE Performing Organization Address City/State/ZIP Code Phon e Number [facility] [address] [place] [address] [place] [address] [facility] documented in this encounter Visit Diagnoses Diagnosis Contraception Personal History documented in this encounter Additional Health Concerns Assessment Noted Time PHQ-9 Depression Total Score: 7 04/07/2017 9:39 AM CDT documented as of this encounter Care Teams Games Dealer Relationship Specialty Start Date End Date Blaire Bundy P.A.-C. PCP - General 02/04/17 04/26/19 documented as of this encounter
--- OUTSIDE RECORDS SUMMARY | 2022-08-03 09:40 | XMS_ITS | Encounter Summary ---
:1985 Author Organization [facility] Address [address] [place] [address] Care Team Providers Name Role Phone Blaire Bundy P.A.-C. Primary Care Provider [phone] Encounter Details Date Type Department Care Team Description 07/21/2018 Orders Only Department of Obstetrics Leonora Reaves A PRN, and Gynecology in [address] [address] [place] [address] [phone] Social History Tobacco Use Types Packs/Day Years [...] How often do you attend zoroastrian or restoration More than 4 time s [...] documented as of this encounter Care Teams Catering Barista Relationship Specialty Start Date End Date Blaire Bundy P.A.-C. PCP - General 02/04/17 04/26/19 documented as of this encounter
--- OUTSIDE RECORDS SUMMARY | 2022-08-03 09:40 | XMS_ITS | Encounter Summary ---
:1985 Author Organization [facility] Address [address] [place] [address] Care Team Providers Name Role Phone Blaire Bundy P.A.-C. Primary Care Provider [phone] Encounter Details Date Type Department Care Team Description 04/13/2019 Clinical Communication Department of Dawna Madera Obstetrics and Adelita Reddy Gynecology in [address] [address] [place] [phone] Social History Tobacco Use Types Packs/Day Years [...] as of this encounter Care Teams Supervisor Grips Relationship Specialty Start Date End Date Blaire Bundy P.A.-C. PCP - General 02/04/17 04/26/19 documented as of this encounter
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
--- OUTSIDE RECORDS SUMMARY | 2022-08-03 09:40 | XMS_ITS | Encounter Summary ---
:1985 Author Organization [facility] Address [address] [place] [address] Care Team Providers Name Role Phone Blaire Bundy P.A.-C. Primary Care Provider [phone] Encounter Details Date Type Department Care Team Description 07/21/2018 Orders Only Department of Leonora Reaves, Morbid Obesi ty Body Obstetrics and MANGLE CATCHER, C.N.P. Mass Index 50.0-59.9 Gynecology in [facility] [address] Adult (HCC) ([place], [place] Dx) [address] [place] [place] [address] [place], [place] [phone] [address] (Work) [phone] Social History Tobacco Use Types Packs/Day Years [...] How often do you attend nondenominational or religion More than 4 time s [...] documented as of this encounter Care Teams Radiologic Technician Relationship Specialty Start Date End Date Blaire Bundy P.A.-C. PCP - General 02/04/17 04/26/19 documented as of this encounter
--- OUTSIDE RECORDS SUMMARY | 2022-08-03 09:40 | XMS_ITS | Encounter Summary ---
:1985 Author Organization [facility] Address [address] [place] [address] Care Team Providers Name Role Phone Blaire [...] Toe Pain Toe Blaire Bundy, [facility] Procedures ORS CONS FOOT POD P.A.-C. [address] [place], [place] [address] Referral ID Status Reason Start Date Expiration Date Visits Requ ested Visits Authorized [id number] Closed 02/18/2018 02/18/2019 1 1 Encounter Details Date Type Department Care Team Description 03/14/2018 Comprehensive Visit Department of Riccardo Cottrell, Ingrown Nail (Primary Dx); Orthopedic Surgery Mickey Nuñez Pain Toe; in [place], [facility] [address] FABIAN Onychomycosis; [place], [place] High Risk Medication [address] [place] [address] [place], [place] [phone] (Work) [phone] Social History Tobacco Use Types Packs/Day Years [...] How often do you attend advent or synagogue More than 4 time s [...] Hepatic Function Panel (03/14/2018 10:04 AM CDT) [facility] Method Time Signature Bilirubin, Total, S 0.9 <=1.2 03/14/2018 [facility] mg/dL 10:53 AM T [facility] Bilirubin, Direct, S 0.2 0.0 - 0.3 03/14/2018 [facility] mg/dL 10:53 AM [facility] Aspartate 18 8 - 43 03/14/2018 [facility] Aminotransferase U/L 10:53 AM [facility] S [facility] Alanine 15 7 - 45 03/14/2018 [facility] Aminotransferase U/L 10:53 AM [facility] ([facility]), S [facility] Alkaline 69 37 - 98 03/14/2018 [facility] Phosphatase, S U/L 10:53 AM T [facility] Albumin, S 3.5 3.5 - 5.0 03/14/2018 [facility] g/dL 10:53 AM CDT [facility] Protein, Total, S 6.2 (L) 6.3 - 7.9 03/14/2018 [facility] g/dL 10:53 AM T [facility] Specimen Anatomical Collection Method Collection Time Receive d Time (Source) Location / / Volume Laterality Blood (Blood, 03/14/2018 10:04 03/14/2018 Venous) AM CDT 10:09 AM CDT Gloria Johnson D.P.M. LAB BLOOD ADD-ON Performing Organization Address City/State/[facility] Code Phon e Number [facility] [address] [address] [place] [facility] documented in this encounter Visit Diagnoses Diagnosis Ingrown Nail - Primary Pain Toe Onychomycosis High Risk Medication documented in this encounter Additional Health Concerns Assessment Noted Time PHQ-9 Depression Total Score: 7 04/07/2017 9:39 AM CDT documented as of this encounter Care Teams Resist Coater Developer Relationship Specialty Start Date End Date Blaire Bundy P.A.-C. PCP - General 02/04/17 04/26/19 documented as of this encounter
--- OUTSIDE RECORDS SUMMARY | 2022-08-03 09:40 | XMS_ITS | Encounter Summary ---
:1985 Author Organization [facility] Address [address] [place] [address] Care Team Providers Name Role Phone Blaire Bundy P.A.-C. Primary Care Provider [phone] Reason for Visit Reason Comments Contraception Appointment Request (Routine) - Closed Specialty Diagnoses / Procedures Referred By Contact Refer red To Contact Obstetrics and Diagnoses PAR REVIEW [facility] Gynecology Procedures OBG NEW STAVE JOINTER Referral ID Status Reason Start Date Expiration Date Visits Requ ested Visits Authorized [id number] Closed 07/01/2018 07/01/2019 1 1 Encounter Details Date Type Department Care Team Description 07/20/2018 Comprehensive Visit Department of Leonora Villaseñor Inser tion Contraceptive Subdermal (Primary Dx); Obstetrics and OPTICAL INSTRUMENT ASSEMBLER, C.N.P. Morbid Obesity Body Mass Index 50.0-59.9 Adult (HCC) Gynecology in [address] [id number] Social History Tobacco Use [...] How often do you attend judaism or jehovah's witness More than 4 time [...] Comments Blood Pressure 140/90 07/20/2018 10:50 AM LAW PROFESSOR Pulse - - Temperature - - Respiratory Rate - - Oxygen Saturation - - Inhaled Oxygen Concentration - - Weight 142 kg (313 lb 0.9 oz) 07/20/2018 10:50 AM LAW PROFESSOR Height - - Body Mass Index 57.24 03/03/2018 6:59 AM CDT documented in this encounter Procedure Notes Leonora Villaseñor, JOSEFA, C.N.P. - 07/20/2018 11:00 AM CSTAssociated Order(s): SUBDERMAL CONTRACEPTIVE DEVICE Subdermal Contraceptive Device Date/Time: 07/20/2018 1:21 PM Performed by: LENOORA VILLASEÑOR Authorized by: LEONORA VILLASEÑOR Care team [...] the patient and/or decision maker.: Not addressed [place] protocol: All relevant documentation and testing were [...] completed successfully: yes Complications: no apparent complications STAVE JOINTER Subjective: Patient is here to discuss control [...] not yet be positive. According to the [facility] quick start control care model she will repeat a test at home in 1-2 weeks, and return to clinic if a positive test. Backup control is advised for 1 week. She also has questions about weight loss surgery, weight loss. Consult is placed to [facility] in [place]. PROFESSOR documented in this encounter Plan of Treatment Not on filedocumented as of this encounter Procedures Procedure Name Priority Date/Time Associated Diagnosis Comme nts DE INS Routine 07/20/2018 11:00 Insertion Results for this NON-BIODEGRADABLE AM LAW PROFESSOR Contraceptive procedure are in DRUG DEL Subdermal the results section. documented in this encounter Results DE INS NON-BIODEGRADABLE DRUG DEL (07/20/2018 11:00 AM LAW PROFESSOR) Narrative MMODAL - 07/20/2018 11:00 AM LAW PROFESSOR Leonora Villaseñor, OPTICAL INSTRUMENT ASSEMBLER, C.N.P. ? 07/20/2018 ??1:27 PM Subdermal Contraceptive [...] the patient and/or decision maker.: ??Not addressed [place] protocol: ??All relevant documentation and testin g [...] 68 mg subdermal Given 07/20/2018 1:21 PM LAW PROFESSOR 1 each implant 1 each (NEXPLANON) 1 each, subdermal, One-Time, Starting on Wed07/20/18 at 1321, For 1 dose documented in this encounter Additional Health Concerns Assessment Noted Time PHQ-9 Depression Total Score: 7 04/07/2017 9:39 AM CDT documented as of this encounter Care Teams Adolescent Coordinator Relationship Specialty Start Date End Date Blaire Bundy P.A.-C. PCP - General 02/04/17 04/26/19 documented as of this encounter
--- OUTSIDE RECORDS SUMMARY | 2022-08-03 09:40 | XMS_ITS | Encounter Summary ---
:1985 Author Organization [facility] Address [address] [place] [address] Care Team Providers Name Role Phone Blaire Bundy P.A.-C. Primary Care Provider [phone] Encounter Details Date Type Department Care Team Description 05/11/2018 Immunization Department of Blaire Bundy P.A.-C. [address] [place], [place] [id number] Need Vaccine Pediatrics in [place] Zeinab Gong, L.P.N. [address] [place] [address] Immunization ([place], [place] Dx) [address] [place] [address] Social History Tobacco Use Types [...] How often do you attend buddhist or restorationist More than 4 time s [...] documented as of this encounter Care Teams Offset Plate Preparation Supervisor Relationship Specialty Start Date End Date Blaire Bundy P.A.-C. PCP - General 02/04/17 04/26/19 documented as of this encounter
--- OUTSIDE RECORDS SUMMARY | 2022-08-03 09:40 | XMS_ITS | Encounter Summary ---
:1985 Author Organization [facility] Address [address] [place] [address] Care Team Providers Name Role Phone Blaire Bundy P.A.-C. Primary Care Provider [phone] Reason for Visit Auth/Cert Specialty Diagnoses / Procedures Referred By Contact Refer red To Contact Diagnoses Precipitate Labor (HCC) Procedures x Referral ID Status Reason Start Date Expiration Date Visits Requ ested Visits Authorized [id number] 1 1 Encounter Details Date Type Department Care Team Description 04/12/2019 Anesthesia Event [facility] MAIN OR Alfonso Schmitz M.D., J.D. [address] [place] [phone] [address] Alfonso Tang, ATOMIC WELDER, SAFETY ADVISOR [address] [facility] [place] [address] [place] [address] Anesthesia Record Procedure Summary Procedure [...] 1418 by Abdomen; and Antionette Marcos, R.N. Qqcw-Cwocpz-Uxcj groun dermabond; DRSG METALLURGICAL TESTER d, Schedulin g WND ADH NEONAT 2X3.75 Automated Batch Job (x3); 05/13/21 (Removed by background completion utility); 1418 (Removed by background completion utility) (RETIRED) Incision 03/03/18; 0953; 03/03/18 0953 by 05/13/21 141 8 by Abdomen; dermabond; Darius Castro RBrittaneyN. [facility] katalina-Backgroun SPNG DRSG METALLURGICAL TESTER GZ STRL d, Schedul ing 8PLY 2X2; [...] Fetzer, Megan J RRoverto Time: 1007 (created SAFETY ADVISOR via procedure documentation); Mask Ventilation: Not attempted; Type: Standard ETT; Single Lumen Tube Size: 7 mm; Cuffed: Yes; Location: Oral; Removal Date: 05/19/21 (Not present upon arrival to ED) (RETIRED) Incision 04/12/19; 1041; 04/12/19 1041 by 05/13/21 141 8 by Abdomen; [facility] Sarah Solis, [facility]-Backgroun SURG ADH 3.5X12 (x1); R.N. d, Schedul ing 05/13/21 (Removed by Automated [facility] [...] How often do you attend sabianism or confucianism More than 4 time s [...] Procedure Summary Date: 04/12/19 Room / Location: [facility] 1401 / [facility] GI Anesthesia Start: 1003 Anesthesia Stop: 1140 Procedure: SECTION (N/A ) Diagnosis: Surgeon: Xin De Leon M.D. Responsible Provider: Alfonso Schimtz M.D., Reta Anesthesia Type: general ASA Status: [...] 04/12/19 1003 Procedure: SECTION (N/A ) Location: [address] 1401 / [facility] Surgeon: Xin De Leon M.D. Pertinent [...] Bonner CRNA RBrittaneyNBrittaney - 07/14/2019 1:05 PM HOG OPERATOR Addendum created 07/14/19 1305 by Alfonso Bonner CRNA, R.NBrittaney Care Path modified OPERATOR Addendum Note - Alfonso Bonner CRNA [...] documented as of this encounter Care Teams Fondant Machine Operator Relationship Specialty Start Date End Date Blaire Bundy P.A.-C. PCP - General 02/04/17 04/26/19 documented as of this encounter
--- OUTSIDE RECORDS SUMMARY | 2022-08-03 09:41 | XMS_ITS | Encounter Summary ---
:1985 Author Organization [facility] Address [address] [place] [address] Care Team Providers Name Role Phone Blaire Bundy P.A.-C. Primary Care Provider [phone] Reason for Visit Reason Comments Other right big toe infection? Appointment Request (Routine) - Closed Specialty Diagnoses / Procedures Referred By Contact Refer red To Contact Family Medicine Referral ID Status Reason Start Date Expiration Date Visits Requ ested Visits Authorized [id number] Closed 11/22/2017 05/21/2018 1 1 Encounter Details Date Type Department Care Team Description 11/23/2017 Office Visit Department of Family Blaire Bundy Cell ulitis Toe Right Medicine, [place] [facility] (Primary Dx) Clinic, in [address] [phone] [address] (Work) [phone] Social History Tobacco Use Types Packs/Day Years [...] documented as of this encounter Care Teams Plate Glass Grinder Relationship Specialty Start Date End Date Blaire Bundy P.A.-C. PCP - General 02/04/17 04/26/19 documented as of this encounter
--- OUTSIDE RECORDS SUMMARY | 2022-08-03 09:41 | XMS_ITS | Encounter Summary ---
:1985 Author Organization [facility] Address [address] [place] [address] Care Team Providers Name Role Phone Blaire Bundy P.A.-C. Primary Care Provider [phone] Encounter Details Date Type Department Care [...] How often do you attend anabaptist or adventist More than 4 time s [...] documented as of this encounter Care Teams Antique Furniture Restorer Relationship Specialty Start Date End Date Blaire Bundy P.A.-C. PCP - General 02/04/17 04/26/19 documented as of this encounter
--- OUTSIDE RECORDS SUMMARY | 2022-08-03 09:41 | XMS_ITS | Encounter Summary ---
:1985 Author Organization [facility] Address [address] [place] [address] Care Team Providers Name Role Phone Blaire Bundy P.A.-C. Primary Care Provider Encounter Details Date Type Department Care Team Description 11/12/2017 - Hospital Encounter HX RST Cassidy Sandhu, 11/13/2017 Sera, M.S. [address] [place] [phone] (Wo rk) Social History Tobacco Use Types [...] Respiratory Rate 16 11/13/2017 11:32 Value from [facility] rtplus. AM CDT Oxygen Saturation - - [...] CBC with Differential (11/13/2017 7:23 AM CDT) [facility] Method Time Signature Hemoglobin 8.2 (L) 12.0 - [facility] 15.5 G/DL LABORATORIES - [facility] Hematocrit 26.0 (L) 34.9 - [facility] 44.5 % LABORATORIES [facility] RBC Distrib 15.2 11.9 - [facility] Width 15.5 % LABORATORIES [facility] Platelet Count 229 150 - 450 [facility] X10(9)/L LABORATORIES [facility] Leukocytes 10.1 3.5 - [facility] 10.5 LABORATORIES - X10(9)/L [facility] Neutrophils 7.11 (H) 1.70 - [facility] 7.00 LABORATORIES - X10(9)/L [facility] Lymphocytes 2.38 0.90 - [facility] 2.90 LABORATORIES - X10(9)/L [facility] Monocytes 0.52 0.30 - [facility] 0.90 LABORATORIES - X10(9)/L [facility] Erythrocytes 2.93 (L) 3.90 - [facility] 5.03 LABORATORIES - X10(12)/L [facility] MCV 88.7 81.6 - [facility] 98.3 FL LABORATORIES - [facility] Eosinophils 0.03 (L) 0.05 - [facility] 0.50 LABORATORIES - X10(9)/L [facility] Basophils <0.03 0.00 - [facility] 0.30 LABORATORIES - X10(9)/L [facility] Specimen Anatomical Collection Method Collection Time Receive d Time (Source) Location / / Volume Laterality 11/13/2017 7:23 AM 8 7:23 CDT AM CDT Historical Provider LAB BLOOD ADD-ON Performing Organization Address City/State/ZIP Code Phon e Number [facility] LABORATORIES - [address] [place], [place] [address] [facility] (ABNORMAL) CBC with Differential (11/12/2017 7:48 PM CDT) [facility] gist Method Time Signature Hemoglobin 8.6 (L) 12.0 - [facility] 15.5 G/DL LABORATORIES - [facility] Hematocrit 26.2 (L) 34.9 - [facility] 44.5 % LABORATORIES - [facility] Erythrocytes 3.04 (L) 3.90 - [facility] 5.03 LABORATORIES - X10(12)/L [facility] MCV 86.2 81.6 - [facility] 98.3 FL LABORATORIES - [facility] RBC Distrib 15.0 11.9 - [facility] Width 15.5 % LABORATORIES - [facility] Platelet Count 210 150 - 450 [facility] X10(9)/L LABORATORIES - [facility] Leukocytes 10.3 3.5 - [facility] 10.5 LABORATORIES - X10(9)/L [facility] Neutrophils 9.08 (H) 1.70 - [facility] 7.00 LABORATORIES - X10(9)/L [facility] Lymphocytes 1.03 0.90 - [facility] 2.90 LABORATORIES - X10(9)/L [facility] Monocytes 0.17 (L) 0.30 - [facility] 0.90 LABORATORIES - X10(9)/L [facility] Eosinophils <0.03 (L) 0.05 - [facility] 0.50 LABORATORIES - X10(9)/L [facility] Basophils <0.03 0.00 - [facility] 0.30 LABORATORIES - X10(9)/L [facility] Specimen Anatomical Collection Method Collection Time Receive d Time (Source) Location / / Volume Laterality 11/12/2017 7:48 PM 8 7:48 CDT PM CDT Venu Fernandez M.D., M.S. LAB BLOOD ADD-ON Performing Organization Address [facility] Phon e Number [facility] LABORATORIES - [address] [place], [place] [address] [facility] ABORh, RBC (11/12/2017 11:55 AM CDT) P athologist Signature HXABO/RH BLOOD A NEG [facility] TYPE LABORATORIES - [facility] Specimen (Source) Anatomical Collection Method Collection Time Re ceived Time Location / / Volume Laterality 11/12/2017 11:55 AM CDT Historical Provider LAB BLOOD BANK TEST ORDERABL ES Performing Organization Address [facility] Phon e Number [facility] LABORATORIES - [address] [place], [place] [address] [facility] Antibody Screen, RBC (11/12/2017 11:55 AM CDT) Patholo gist Method Time Signature Antibody Negative [facility] Screen LABORATORIES - [facility] Specimen (Source) Anatomical Collection Method Collection Time Re ceived Time Location / / Volume Laterality 11/12/2017 11:55 AM CDT Historical Provider LAB BLOOD BANK TEST ORDERABL ES Performing Organization Address [facility] Phon e Number [facility] LABORATORIES - [address] [place], [place] [address] [facility] Calcium, Ionized (11/12/2017 11:42 AM CDT) P athologist Signature Calcium, 4.93 4.57 - [facility] Ionized, S 5.43 MG/DL LABORATORIES - [facility] Comment: ? ADDITIONAL INFORMATIO N ? This test has been modified from the man mackr's ? instructions. Its performance characteri stics were ? determined by [facility] in a manner co nsistent with ? CLIA requirements. This test has not bee n cleared or ? approved by the U.S. Food and Drug Admin istration. ? pH 7.42 7.35 - 7.48 [facility] LABORA TORIES - [facility] Specimen Anatomical Collection Method Collection Time Receive d Time (Source) Location / / Volume Laterality 11/12/2017 11:42 11/12/2017 AM CDT 11:42 AM CDT Venu Fernandez M.D., M.S. LAB BLOOD NON ADD-ON Performing Organization Address City/[facility] Code Phon e Number [facility] LABORATORIES - [address] [place] [address] [facility] (ABNORMAL) ALT (Alanine Aminotransferase) (11/12/2017 11:42 AM CDT) Component Value Ref Test Analysis Performed At [facility] gist Range Method Time Signature Alanine 212 (H) 7 - 45 [facility] Aminotransferase U/L LABORATORIES - (ALT), S [facility] Specimen Anatomical Collection Method Collection Time Receive d Time (Source) Location / / Volume Laterality 11/12/2017 11:42 11/12/2017 AM CDT 11:42 AM CDT Venu Fernandez M.D., M.S. LAB BLOOD ADD-ON Performing Organization Address City/[facility] Phon e Number [facility] LABORATORIES - [address] [place] [address] [facility] BMP (Basic Metabolic Panel) (11/12/2017 11:42 AM CDT) Analysis Performed At [facility] logist Time Signature Sodium, P 141 135 - 145 [facility] MMOL/L LABORATORIES - [facility] Potassium, P 4.0 3.6 - 5.2 [facility] MMOL/L LABORATORIES - [facility] eGFR >60 >60 [facility] Non-Black/Afric ML/MIN/BSA LABORATORIES - [facility] eGFR >60 >60 [facility] Black/ ML/MIN/BSA LABORATORIES - [facility] BUN (Blood Urea 11 6 - 21 [facility] Nitrogen), S MG/DL LABORATORIES - [facility] HX Bicarbonate, 23 22 - 29 [facility] P/S MMOL/L LABORATORIES - [facility] Glucose, S 102 70 - 140 [facility] MG/DL LABORATORIES - [facility] Anion Gap 12 7 - 15 [facility] LABORATORIES - [facility] Chloride, S 106 98 - 107 [facility] MMOL/L LABORATORIES - [facility] Creatinine 0.7 0.6 - 1.1 [facility] MG/DL LABORATORIES - [facility] eGFR >60 >60 [facility] Non-Black/Afric ML/MIN/BSA LABORATORIES - an Somali [facility] eGFR-Black/Afri >60 >60 [facility] can Somali ML/MIN/BSA LABORATORIES - [facility] Creatinine 0.7 0.6 - 1.1 [facility] MG/DL LABORATORIES - [facility] Specimen Anatomical Collection Method Collection Time Receive d Time (Source) Location / / Volume Laterality 11/12/2017 11:42 11/12/2017 AM CDT 11:42 AM CDT Venu Fernandez M.D., M.S. LAB BLOOD ADD-ON Performing Organization Address City/[facility] Code Phon e Number [facility] LABORATORIES - [address] (ABNORMAL) CBC without Differential (11/12/2017 11:42 AM CDT) Patholo gist Method Time Signature Hemoglobin 9.8 (L) 12.0 - [facility] 15.5 G/DL LABORATORIES - [facility] Hematocrit 29.8 (L) 34.9 - [facility] 44.5 % LABORATORIES - [facility] Erythrocytes 3.42 (L) 3.90 - [facility] 5.03 LABORATORIES - X10(12)/L [facility] MCV 87.1 81.6 - [facility] 98.3 FL [facility] - [facility] RBC Distrib 15.0 11.9 - [facility] Width 15.5 % [facility] - [facility] Platelet Count 229 150 - 450 [facility] X10(9)/L [facility] Leukocytes 13.2 (H) 3.5 - [facility] 10.5 LABORATORIES - X10(9)/L [facility] Specimen Anatomical Collection Method Collection Time Receive d Time (Source) Location / / Volume Laterality 11/12/2017 11:42 11/12/2017 AM CDT 11:42 AM CDT Venu Fernandez M.D., M.S. LAB BLOOD ADD-ON Performing Organization Address City/State/ZIP Code Phon e Number [facility] LABORATORIES - [address] [place] [address] [facility] Phosphorus Inorganic (11/12/2017 11:42 AM CDT) Analysis Performed At Patho logist Time Signature Phosphorus 2.6 2.5 - 4.5 [facility] (Inorganic), S MG/DL LABORATORIES [facility] Specimen Anatomical Collection Method Collection Time Receive d Time (Source) Location / / Volume Laterality 11/12/2017 11:42 11/12/2017 AM CDT 11:42 AM CDT Venu Fernandez M.D., M.S. LAB BLOOD ADD-ON Performing Organization Address City/[facility]/[place]IP [facility] [place] e Number [facility] LABORATORIES - [address] [place] [address] [facility] Bilirubin, Total (11/12/2017 11:42 AM CDT) P athologist Signature Bilirubin, 0.8 <=1.2 [facility] Total, S MG/DL [facility] Specimen Anatomical Collection Method Collection Time Receive d Time (Source) Location / / Volume Laterality 11/12/2017 11:42 11/12/2017 AM CDT 11:42 AM CDT Venu Fernandez M.D., M.S. LAB BLOOD ADD-ON Performing Organization Address City/[facility]/ZIP Code Phon e Number [facility] LABORATORIES - [address] [place] [address] [facility] Magnesium (11/12/2017 11:42 AM CDT) P athologist Signature Magnesium, S 1.9 1.7 - 2.3 [facility] MG/DL [facility] Specimen Anatomical Collection Method Collection Time Receive d Time (Source) Location / / Volume Laterality 11/12/2017 11:42 11/12/2017 AM CDT 11:42 AM CDT Venu Fernandez M.D., M.S. LAB BLOOD ADD-ON Performing Organization Address City/State/ZIP Code Phon e Number [facility] LABORATORIES - [address] [place] [address] [facility] Bilirubin, Direct (11/12/2017 11:42 AM CDT) P athologist Signature Bilirubin, 0.2 0.0 - 0.3 [facility] Direct, S MG/DL [facility] Specimen Anatomical Collection Method Collection Time Receive d Time (Source) Location / / Volume Laterality 11/12/2017 11:42 11/12/2017 AM CDT 11:42 AM CDT Venu Fernandez M.D., M.S. LAB BLOOD ADD-ON Performing Organization Address City/[facility]/ZIP Code Phon e Number [facility] LABORATORIES - [address] AST (Aspartate Aminotransferase) (11/12/2017 11:42 AM CDT) P athologist Signature AST, Total, S 22 8 - 43 U/L [facility] Specimen Anatomical Collection Method Collection Time Receive d Time (Source) Location / / Volume Laterality 11/12/2017 11:42 11/12/2017 AM CDT 11:42 AM CDT Venu Fernandez M.D., M.S. LAB BLOOD ADD-ON Performing Organization Address City/[facility]/ZIP Code Phon e Number [facility] LABORATORIES - [address] [place] [address] [facility] Alkaline Phosphatase (11/12/2017 11:42 AM CDT) athologist Signature Alkaline 92 37 - 98 [facility] Phosphatase, S U/L [facility] Specimen Anatomical Collection Method Collection Time Receive d Time (Source) Location / / Volume Laterality 11/12/2017 11:42 11/12/2017 AM CDT 11:42 AM CDT Venu Frenandez M.D., M.S. LAB BLOOD ADD-ON Performing Organization Address City/[facility]/ZIP Code Phon e Number [facility] - [address] documented in this encounter Visit Diagnoses Not on filedocumented in this encounter Additional Health Concerns Assessment Noted Time PHQ-9 Depression Total Score: 7 04/07/2017 9:39 AM CDT documented as of this encounter Care Teams Electric Shipyard Operator Relationship Specialty Start Date End Date Blaire Bundy P.A.-C. PCP - General 02/04/17 04/26/19 documented as of this encounter
--- OUTSIDE RECORDS SUMMARY | 2022-08-03 09:41 | XMS_ITS | Encounter Summary ---
:1985 Author Organization [facility] Address [address] [place] [address] Care Team Providers Name Role Phone Blaire Bundy P.A.-C. Primary Care Provider [phone] Reason for Referral Outpatient (Routine) - Closed Specialty Diagnoses / Procedures Referred By Contact Refer red To Contact General Surgery Diagnoses Gallstone With Common Bile Duct [place] par review Jaquan Monahan [facility] Region Procedures GNS POST OP D.O. [address] [place] [address] Referral ID Status Reason Start Date Expiration Date Visits Requ ested Visits Authorized [id number] Closed 03/03/2018 03/03/2019 1 1 Reason for Visit Auth/Cert Specialty Diagnoses / Procedures Referred By Contact Refer red To Contact Diagnoses Gallstone With Common Bile Duct [place] Procedures [place] LAPAROSCOPY CHOLECYST W CHOLNG LAPAROSCOPIC CHOLECYSTECTOMY WITH CHOLANGIOGRAM Referral ID Status Reason Start Date Expiration Date Visits Requ ested Visits Authorized [id number] 1 1 Encounter Details Date Type Department Care Team Description 03/03/2018 Hospital Encounter [facility] OR Jaquan Monahan With [address] P, D.OBrittaney Common Bile Duct WAYNE [facility]HERRIN [place] [address] [place] [address] W [phone] [place], [place] [address] Social History Tobacco Use Types Packs/Day Years [...] How often do you attend lutheran or yarsanism More than 4 time s [...] through Care Everywhere.Home Care Following Gallbladder Surgery (Czech)documented in this encounter Medications at Time of [...] Role: * Jaquan Monahan D.O. - Primary Volleyball Player: Naye Stockton L.P.N. Anesthesia Type: General Pre-Operative [...] of these were recovered in the suction vice president residential solar sales. The gallbladder was placed in Endo-Catch bag [...] Name Type Priority Associated Diagnoses Order S [facility] Surgery Outpatient Referral Routine Gallstone With [...] Signature PATHOLOGY Patient Name: PUNEET CLAYTON [facility] MR#: [id number] LAUREL Submitting Physician: JAQUAN MONAHAN DO [id number] Specimen #[id number] Performing Lab: ??[facility] ? [address] [place] [address] Source: Gallbladder Clinical History/Pre-Op Gallstone with common [...] trabeculated. ??The mucosal wall measures 0.2 cm. ??Wheel Buffer sections are submitted in cassette A1. KG/ps ?? Diagnosis Gallbladder, cholecystectomy: CHOLELITHIASIS. Electronically Signed By USAMA MALDONADO MD - 03/04/2018 pjs/03/04/2018 Specimen (Source) Anatomical Collection Method Collection Time Re ceived Time Location / / Volume Laterality Tissue 03/03/2018 9:54 AM (Gallbladder) CDT Jaquan Monahan D.O. LAB SURG PATH ORDERABLES Performing Organization Address City/State/[facility] Phon e Number [address] [address] documented in this encounter Visit Diagnoses Diagnosis [...] 843 (Given - Provider: Rosalee Desir APRN, LICENSED OCCUPATIONAL THERAPY ASSISTANT) 500 mg, intravenous, at 200 mL/hr, Admin [...] (Rate/Dose Verify - Provider: Rosalee Desir APRN, LICENSED OCCUPATIONAL THERAPY ASSISTANT)1019 (Anesthesia Volume Adjustment - Provider: Rosalee Desir [...] 1033, Drug Monitoring Program: Pharmacist to a [facility] medication order based on comorbities and indication. documented in this encounter Additional Health Concerns Assessment Noted Time PHQ-9 Depression Total Score: 7 04/07/2017 9:39 AM CDT documented as of this encounter Care Teams Cleaner Carpet And Upholstery Relationship Specialty Start Date End Date Blaire Bundy P.A.-C. PCP - General 02/04/17 04/26/19 documented as of this encounter
--- OUTSIDE RECORDS SUMMARY | 2022-08-03 09:41 | XMS_ITS | Encounter Summary ---
:1985 Author Organization [facility] Address [address] [place] [address] Care Team Providers Name Role Phone Blaire Bundy P.A.-C. Primary Care Provider [phone] Encounter Details Date Type Department Care Team Description 02/09/2018 Clinical Communication Department of General Aline Dunbar Surgery in [place], L, L.P.N[address] [phone] Social History Tobacco Use Types Packs/Day Years [...] How often do you attend orthodox or yarsanism More than 4 time s [...] documented as of this encounter Care Teams Concrete Mixer Relationship Specialty Start Date End Date Blaire Bundy P.A.-C. PCP - General 02/04/17 04/26/19 documented as of this encounter
--- OUTSIDE RECORDS SUMMARY | 2022-08-03 09:41 | XMS_ITS | Encounter Summary ---
:1985 Author Organization [facility] Address [address] [place] [address] Care Team Providers Name Role Phone Blaire Bundy P.A.-C. Primary Care Provider [phone] Reason for Visit Auth/Cert Specialty Diagnoses / Procedures Referred By Contact Refer red To Contact Diagnoses Gallstone With Common Bile Duct [place] Procedures [place] LAPAROSCOPY CHOLECYST W CHOLNG LAPAROSCOPIC CHOLECYSTECTOMY WITH CHOLANGIOGRAM Referral ID Status Reason Start Date Expiration Date Visits Requ ested Visits Authorized [id number] 1 1 Encounter Details Date Type Department Care Team Description 03/03/2018 Surgery [facility] MAIN OR Jaquan Monahan LAPAROSCOPIC [address]HELLE P, D.O. CHOLECYSTECTOMY POSSIBLE [place], [place] [address] CHOLANGIOGRAM [address] [place] [address] Social History Tobacco Use Types [...] How often do you attend pentecostalism or temple More than 4 time s [...] Role: * Jaquan Monahan D.O. - Primary Doctor Of Naprapathy: Naye Stockton L.P.N. Anesthesia Type: General Pre-Operative [...] of these were recovered in the suction laborer road. The gallbladder was placed in Endo-Catch bag [...] Order S [facility] General Surgery Outpatient Referral Routine Gallstone With [...] Component Value Ref Test Analysis Performed At [facility] Range Method Time Signature PATHOLOGY Patient Name: PUNEET CLAYTONBrittaney [facility] MR#: [id number] [facility] Submitting Physician: JAQUAN MONAHAN DO [id number] Specimen #[id number] Performing Lab: ??[facility] ? [address] [facility] [address] Source: Gallbladder Clinical History/Pre-Op Gallstone with common [...] trabeculated. ??The mucosal wall measures 0.2 cm. ??Dye Automation Operator sections are submitted in cassette A1. KG/ps ?? Diagnosis Gallbladder, cholecystectomy: CHOLELITHIASIS. Electronically Signed By USAMA MALDONADO MD - 03/04/2018 pjs/03/04/2018 Specimen (Source) Anatomical Collection Method Collection Time Re ceived Time Location / / Volume Laterality Tissue 03/03/2018 9:54 AM (Gallbladder) CDT Jaquan Monahan D.O. LAB SURG PATH ORDERABLES Performing Organization Address City/State/ZIP Code Phon e Number [facility] [address] [place] [address] documented in this encounter Visit Diagnoses Diagnosis [...] 843 (Given - Provider: Rosalee Desir APRN, FASHION DIRECTOR) 500 mg, intravenous, at 200 mL/hr, Admin [...] (Rate/Dose Verify - Provider: Rosalee Desir APRN, FASHION DIRECTOR)1019 (Anesthesia Volume Adjustment - Provider: Rosalee Desir [...] 1033, Drug Monitoring Program: [facility] medication order based on comorbities and indication. documented in this encounter Additional Health Concerns Assessment Noted Time PHQ-9 Depression Total Score: 7 04/07/2017 9:39 AM CDT documented as of this encounter Care Teams Dog Groomer Relationship Specialty Start Date End Date Blaire Bundy P.A.-C. PCP - General 02/04/17 04/26/19 documented as of this encounter
--- OUTSIDE RECORDS SUMMARY | 2022-08-03 09:41 | XMS_ITS | Encounter Summary ---
:1985 Author Organization [facility] Address [address] [place] [address] Care Team Providers Name Role Phone Blaire Bundy P.A.-C. Primary Care Provider Reason for Referral Outpatient (Routine) - Closed Specialty Diagnoses / Procedures Referred By Contact Refer red To Contact General Surgery Diagnoses Gallstone With Common Bile Duct Stone Blaire Bundy [facility] Alicia BuckleyABrittaney-CBrittaney [address] [place], [place] [address] Referral ID Status Reason Start Date Expiration Date Visits V isits Requested Authorized [id number] Closed Specialty 11/19/2017 05/18/2018 1 1 Services Required Reason for Visit Reason Comments Post Hospital Follow-up Patient discharged from [facility] on 11/13/17. 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 Patient is complaining of feeling tired and short of breath Encounter Details Date Type Department Care Team Description 11/19/2017 Office Visit Department of Family Blaire Bundy (Primary Dx); Medicine, Jose Knox Hypovolemic Shock (HCC); Clinic, in [address] Gallstone With Common Bile Duct Stone; [place], [place] Counseling Control [address] [place] [address] [place], [place] [phone] (Work) [phone] Social History Tobacco Use Types Packs/Day Years [...] How often do you attend amish or scientology More than 4 time s [...] of Post Hospital Follow-up (Patient discharged from [facility] on 11/13/17. Was in for Upper GI [...] duodenal ulcer. She was then transferred from [facility] to [facility] for further treatment. In [place] the patient had another EGD which showed [...] Name Type Priority Associated Diagnoses Order S [facility] General Surgery - Outpatient Referral Routine Gallstone [...] CBC with Differential (11/19/2017 11:35 AM CDT) [facility] gist Method Time Signature Hemoglobin 8.6 (L) 11.6 - 11/19/2017 [facility] 15.0 g/dL 11:58 AM CDT [facility] Hematocrit 27.7 (L) 35.5 - 11/19/2017 [facility] 44.9 % 11:58 AM CDT [facility] Erythrocytes 3.10 (L) 3.92 - 11/19/2017 [facility] 5.13 11:58 AM CDT [facility]ALTH x10(12)/L [facility] MCV 89.4 78.2 - 11/19/2017 [facility] 97.9 fL 11:58 AM T [facility] RBC Distrib Width 14.9 12.2 - 11/19/2017 [facility] 16.1 % 11:58 AM T [facility] Platelet Count 355 157 - 371 11/19/2017 [facility] x10(9)/L 11:58 AM CDT [facility] Leukocytes 5.6 3.4 - 9.6 11/19/2017 [facility] x10(9)/L 11:58 AM T [facility] Neutrophils 2.80 1.56 - 11/19/2017 [facility] 6.45 11:58 AM CDT HEALTH x10(9)/L [facility] [place] Lymphocytes 2.17 0.95 - 11/19/2017 [facility] 3.07 11:58 AM CDT HEALTH x10(9)/L [facility] [place] [facility] Monocytes 0.44 0.26 - 11/19/2017 [facility] 0.81 11:58 AM CDT HEALTH x10(9)/L [facility] [place] [facility] Eosinophils 0.22 0.03 - 11/19/2017 [facility] 0.48 11:58 AM CDT HEALTH x10(9)/L [facility] [place] [facility] Basophils 0.01 0.01 - 11/19/2017 [facility] 0.08 11:58 AM CDT HEALTH x10(9)/L [facility] [place] [facility] Specimen Anatomical Collection Method Collection Time Receive d Time (Source) Location / / Volume Laterality Blood (Blood, 11/19/2017 11:35 11/19/2017 Venous) AM CDT 11:50 AM CDT Blaire Bundy P.A.-C. LAB BLOOD ADD-ON Performing Organization Address City/[facility] Code Phon e Number [facility] [address] [place] [address] [facility] documented in this encounter Visit Diagnoses Diagnosis Melena - Primary Hypovolemic Shock (HCC) Gallstone With Common Bile Duct Stone Counseling Control documented in this encounter Additional Health Concerns Assessment Noted Time PHQ-9 Depression Total Score: 7 04/07/2017 9:39 AM CDT documented as of this encounter Care Teams Resource Development Director Relationship Specialty Start Date End Date Blaire Bundy P.A.-C. PCP - General 02/04/17 04/26/19 documented as of this encounter
--- OUTSIDE RECORDS SUMMARY | 2022-08-03 09:41 | XMS_ITS | Encounter Summary ---
:1985 Author Organization [facility] Address [address] [place] [address] Care Team Providers Name Role Phone Blaire Bundy P.A.-C. Primary Care Provider [phone] Reason for Visit Outpatient (Routine) - Closed Specialty Diagnoses / Procedures Referred By Contact Refer red To Contact Diagnoses Gallstone With Common Bile Duct Stone Edd Moeller D.O. [address] [address] Referral ID Status Reason Start Date Expiration Date Visits Requ ested Visits Authorized [id number] Closed 02/09/2018 02/09/2019 1 1 Encounter Details Date Type Department Care Team Description 02/11/2018 Telemedicine Department of General Edd Moeller eamargaritathetic Medical Exam (Primary Dx); Surgery in Jason Rivera D.O. Gallstone With Common Bile Duct Stone [address] [place] [address] [place], [place] [phone] (Work) [phone] Social History Tobacco Use Types Packs/Day Years [...] How often do you attend adventist or oriental orthodox More than 4 time s per year 07/09/2020 services? Do you belong to any clubs or organizations No 04/19/2019 such as adventist groups, unions, fraUrtak or athletic groups, or school groups? How [...] - 02/11/2018 10:00 AM CDT Surgical Nurse Customs Compliance Analyst Skin Alert Assessment: Complete this section only [...] lying flat? no Do you have any oriental orthodox or other objection to having a blood transfusion? no Teaching: Preoperative education was done with (x) patient (_) parent (_) other. _ It was confirmed the patient/family member had received the following preoperative education sheets:Checklist For Surgical Patients ([id number]),???Surgical Site Infections ([id number]), Speak Up: Antibiotics ([id number]), ???Smoke Free, Advice for patients and visitors?? ([id number]), ???Your Guide to Pain Management ([id number]), Managing Your Pain After Surgery ([id number]) with the ???Healing [employer]?? pamphlet ([id number]), and ???Appointments Required Before Your Surgery?? ([facility] [id number]). These were reviewed in detail. Additional Pamphlets also reviewed: (_)?? Parental Presence in the Operating Room?? ([facility]:Order Sets/Surgery/Home Instructions/Tonsillectomy Teaching Checklist/PE Tubes Teaching [...] appointments: 1st po with surgeon or physician facilities maintenance assistant: (x) made (_)TBD (_)Audiology appointment (PE [...] as of this encounter Care Teams Glaze Sprayer Relationship Specialty Start Date End Date Blaire Bundy P.A.-C. PCP - General 02/04/17 04/26/19 documented as of this encounter
--- OUTSIDE RECORDS SUMMARY | 2022-08-03 09:41 | XMS_ITS | Encounter Summary ---
:1985 Author Organization [facility] Address [address] [place] [address] Care Team Providers Name Role Phone Blaire Bundy P.A.-C. Primary Care Provider [phone] Reason for Referral Outpatient (Routine) - Closed Specialty Diagnoses / Procedures Referred By Contact Refer red To Contact General Surgery Diagnoses Calculus Of Bile Duct Without Cholangitis Or Cholecystitis With Obstruction par review Edd Moeller, [facility] Region Procedures RAY D.O. [address] [place] [address] Referral ID Status Reason Start Date Expiration Date Visits Requ ested Visits Authorized [id number] Closed 02/11/2018 02/11/2019 1 1 Encounter Details Date Type Department Care Team Description 02/11/2018 Orders Only Department of General Keo, Lydia Ca lculus Of Bile Duct Surgery in [facility] Without Cholangitis Or [place] [address] [facility] Cholecystitis With [address] [place], [place] Obstruction ([place] [address] Dx) [phone] Social History Tobacco Use Types [...] How often do you attend mandaeism or jew More than 4 time s [...] documented as of this encounter Care Teams Stencil Maker Relationship Specialty Start Date End Date Blaire Bundy P.A.-C. PCP - General 02/04/17 04/26/19 documented as of this encounter
--- OUTSIDE RECORDS SUMMARY | 2022-08-03 09:41 | XMS_ITS | Encounter Summary ---
:1985 Author Organization [facility] Address [address] [place] [address] Care Team Providers Name Role Phone Blaire Bundy P.A.-C. Primary Care Provider [phone] Reason for Referral Outpatient (Routine) - Closed Specialty Diagnoses / Procedures Referred By Contact Refer red To Contact Diagnoses Gallstone With Common Bile Duct Stone Edd Moeller D.O. [facility] [address] [address] Referral ID Status Reason Start Date Expiration Date Visits Requ ested Visits Authorized [id number] Closed 02/09/2018 02/09/2019 1 1 Reason for Visit Reason Comments Cholelithiasis Outpatient (Routine) - Closed Specialty Diagnoses / Procedures Referred By Contact Refer red To Contact General Surgery Diagnoses Gallstone With Common Bile Duct Stone Blaire Bundy [facility] NEHEMIAH doyle P.A.-C. [address] [place], [place] [address] Referral ID Status Reason Start Date Expiration Date Visits V isits Requested Authorized [id number] Closed Specialty 11/19/2017 05/18/2018 1 1 Services Required Encounter Details Date Type Department Care Team Description 02/09/2018 Comprehensive Visit Department of Juan Moeller Posthemorrhagic Acute (Primary Dx); General Surgery in Edd Gomez, Gallstone With Common Bile Duct Stone Marko Maxwell D.O. [address] [facility] [address] [place] [phone] [phone] Social History Tobacco Use Types Packs/Day Years [...] How often do you attend orthodox or catholic More than 4 time s [...] She denies alcohol use. She works at [employer] in [employer]. OBJECTIVE PHYSICAL EXAMINATION General: Ms. Cooley [...] scheduled in the near future. Job ID: [id number]/imx documented in this encounter Plan of Treatment Scheduled Referrals Name Type Priority Associated Order Schedule Diagnoses Pre Operative Outpatient Referral Routine Gallstone With Expec pipe: Evaluation RAY nurse Common Bile Duct consult (clinic) Stone (Approximat e), Expires: 02/09/2021 documented as of this encounter Results (ABNORMAL) CBC with Differential, Blood (02/18/2018 10:42 AM CDT) [facility] Method Time Signature Hemoglobin 11.3 (L) 11.6 - 02/18/2018 [facility] 15.0 g/dL 10:54 AM T [facility] Hematocrit 37.3 35.5 - 02/18/2018 [facility] 44.9 % 10:54 AM T [facility] Erythrocytes 4.95 3.92 - 02/18/2018 [facility] 5.13 10:54 AM [facility] x10(12)/L [facility] MCV 75.4 (L) 78.2 - 02/18/2018 [facility] 97.9 fL 10:54 AM [facility] RBC Distrib Width 15.3 12.2 - 02/18/2018 [facility] 16.1 % 10:54 AM [facility] Platelet Count 285 157 - 371 02/18/2018 [facility] x10(9)/L 10:[address] [facility] Leukocytes 7.0 3.4 - 9.6 02/18/2018 [facility] x10(9)/L 10:[address] [facility] Neutrophils 4.71 1.56 - 02/18/2018 [facility] 6.45 10:54 AM CDT HEALTH x10(9)/L [facility] [place] [facility] Lymphocytes 1.76 0.95 - 02/18/2018 [facility] 3.07 10:54 AM CDT HEALTH x10(9)/L [facility] [place] Monocytes 0.35 0.26 - 02/18/2018 [facility] 0.81 10:54 AM CDT [facility]ALTH x10(9)/L [facility] [place] [facility] Eosinophils 0.18 0.03 - 02/18/2018 [facility] 0.48 10:54 AM CDT HEALTH x10(9)/L [facility] [place] [facility] Basophils 0.03 0.01 - 02/18/2018 [facility] 0.08 10:54 AM CDT [facility]ALTH x10(9)/L [facility] [place] [facility] Specimen Anatomical Collection Method Collection Time Receive d Time (Source) Location / / Volume Laterality Blood (Blood, 02/18/2018 10:42 02/18/2018 Venous) AM CDT 10:46 AM CDT Edd Moeller D.O. LAB BLOOD ADD-ON Performing Organization Address City/State/[facility] Code Phon e Number [facility]- [id number] [place] [address] [place] [facility] documented in this encounter Visit Diagnoses Diagnosis Anemia Posthemorrhagic Acute (Blood Loss Anemia) - Primary Gallstone With Common Bile Duct Stone documented in this encounter Additional Health Concerns Assessment Noted Time PHQ-9 Depression Total Score: 7 04/07/2017 9:39 AM CDT documented as of this encounter Care Teams Yeast Supervisor Relationship Specialty Start Date End Date Blaire Bundy PBrittaneyACory. PCP - General 02/04/17 04/26/19 documented as of this encounter
--- OUTSIDE RECORDS SUMMARY | 2022-08-03 09:41 | XMS_ITS | Encounter Summary ---
:1985 Author Organization [facility] Address [address] [place] [address] Care Team Providers Name Role Phone Blaire Bundy P.A.-C. Primary Care Provider [phone] Reason for Visit Auth/Cert Specialty Diagnoses / Procedures Referred By Contact Refer red To Contact Diagnoses Gallstone With Common Bile Duct Stone Procedures [place] LAPAROSCOPY CHOLECYST W CHOLNG LAPAROSCOPIC CHOLECYSTECTOMY WITH CHOLANGIOGRAM Referral ID Status Reason Start Date Expiration Date Visits Requ ested Visits Authorized [id number] 1 1 Encounter Details Date Type Department Care Team Description 03/03/2018 Anesthesia Event [facility] MAIN OR Matthew Plascencia M.D. [address] [facility] [address] [facility] [place] [address] [place] [phone] (Wo rk) Anesthesia Record Procedure Summary [...] dermabond; Antionette Cooper CRT, R.N. [facility] WND ADH NEONAT 2X3.75 d, Schedul [...] 1015 by Placement Time: 0837 Rosalee Xiong, LENS BLANK GAUGER, Rosalee Xiong, LENS BLANK GAUGER, (created via procedure SUPERVISOR PARACHUTE MANUFACTURING SUPERVISOR PARACHUTE MANUFACTURING documentation); Mask Ventilation: Oral/Nasal airway needed; Type: Standard ETT; Single Lumen Tube Size: 7 mm; Cuffed: Yes; Location: Oral; Removal Date: 03/03/18; Removal Time: 1015 (RETIRED) Incision 03/03/18; 952; Abdomen; 03/03/18 0953 by 1418 by Darius Coyle CRT, R.N. May [id number] GZ STRL 8PLY 2X2; d, Scheduling 05/13/21 (Removed by Automated B [facility] Job background completion utility); 1418 (Removed [...] Date: 03/03/18 Room / Location: OR 03 [facility] 1404 / [facility] OR Anesthesia Start: 826 Anesthesia [...] patient / legal guardian, or through an resource economist; patient evaluated and approved for anesthesia / [...] no complications Procedure Note Rosalee Xiong, JOSEFA, SUPERVISOR [employer]ACH[employer]URING - 03/03/2018 8 :54 AM CDT Airway [...] as of this encounter Care Teams Commercial Hvac Technician Relationship Specialty Start Date End Date Blaire Bundy P.A.-C. PCP - General 02/04/17 04/26/19 documented as of this encounter
--- OUTSIDE RECORDS SUMMARY | 2022-08-03 09:41 | XMS_ITS | Encounter Summary ---
:1985 Author Organization [facility] Address [address] [place] [address] Care Team Providers Name Role Phone Blaire Bundy P.A.-C. Primary Care Provider [phone] Reason for Visit Reason Comments Dizziness Black or Bloody Stool Nausea Rapid Heart Rate Auth/Cert Specialty Diagnoses / Procedures Referred By Contact Refer red To Contact Diagnoses Calculus Of Bile Duct Without Cholangitis Or Cholecystitis With Obstruction Procedures CT ERCP W BX ENDOSCOPIC RETROGRADE CHOLANGIOPANCREATOGRAPHY Referral ID Status Reason Start Date Expiration Date Visits Requ ested Visits Authorized [id number] 1 1 Encounter Details Date Type Department Care Team Description 11/11/2017 - [facility] Nuno Love M.D. [address] [place] [address] Radha (Primary Dx); 11/12/2017 Encounter Hospital, [place] Taryn Helm M.D. [address] [place] [address] Hypovolemic Shock (HCC); [facility], [facility] Third Floor [address] [place] [address] Social History Tobacco Use Types [...] How often do you attend orthodox or gnosticism More than 4 time [...] Primary Care Providers: Blaire Thornton P.A.-C. (General) [address] [place] [phone] Primary Care Provider Primary Care Provider Admission Date: 11/11/2017 Discharge Date: 11/12/2017 PRINCIPAL DIAGNOSIS Melena SECONDARY DIAGNOSES Active Problems: Hypovolemic Shock (HCC) Morbid obesity Resolved Problems: * No resolved hospital problems. * Operative Procedures: Scheduled (Blank), Completed (Comp) or Canceled (Can) Case IDs Date Procedure Surgeon Location Status [id number] 11/11/17 ESOPHAGOGASTRODUODENOSCOPY Rubio Baker M.D. [facility] Blank Past Medical History: Diagnosis Date ??? Sleep Apnea Past Surgical History: Procedure Laterality Date ??? ENDOSCOPIC RETROGRADE CHOLANGIOPANCREATOGRAPHY (ERCP) N/A 11/08/2017 Procedure: ENDOSCOPIC RETROGRADE CHOLANGIOPANCREATOGRAPHY; Surgeon: Rubio Baker M.D.; Location: [facility] OR ??? LAPAROSCOPIC APPENDECTOMY N/A [...] blood. Coordinated care with [facility] in [place]. Patient will be transferred via ambulance to [...] bleeding and would like to transfer to [place]. Still gets winded with any movement. OBJECTIVE [...] ERCPist to treat this. Will transfer to [place] this morning. NPO. Discussed case with Dr. [...] [facility] OR ??? LAPAROSCOPIC APPENDECTOMY N/A [...] 3:51 PM CDTAssociated Order(s): UPPER GI ENDOSCOPY [facility] [place] [facility] Patient Name: Carol Cooley Procedure Date: [...] unstable, then will plan on transferring to [place] for further therapy. Findings: The esophagus was [...] [facility] OR ??? LAPAROSCOPIC APPENDECTOMY N/A [...] - 11/12/2017 9:26 AM CDT Transfer to [place] report given to Don Gabrielle Nguyen R.N. - 11/12/2017 9:22 AM CDT Goals: Clinical Goals for the Shift: reduce heart rate; improve hemoglobin level Identify possible barriers to meeting goals/advancing plan of care: none Stability of the patient: Moderately Stable - Low risk of patient condition declining or worsening End of Shift Summary: pt to transfer to [facility] Marcus Mata R.N. - 11/12/2017 5:12 AM CDT Goals: Clinical Goals for the Shift: reduce heart rate; improve hemoglobin level Identify possible barriers to meeting goals/advancing plan of care: melena; hypovolemic shock Stability of the patient: Moderately Unstable - Medium risk of patient condition declining or worsening End of Shift Summary: HR has improved over the duration of this hourly shift manager; initially HR was 130-140, now [...] with her family history of CAD and [place] as well as her recent surgery and [...] Hemoglobin 7.6 (L) 11.6 - 15.0 11/12/2017 [facility] g/dL 5:47 AM CDT [facility] Specimen Anatomical Collection Method Collection Time Receive d Time (Source) Location / / Volume Laterality Blood (Blood, 11/12/2017 5:40 AM 11/13/19 18 5:45 Venous) CDT AM CDT Kendal Santacruz APRNN.P. LAB BLOOD ADD-ON Performing Organization Address City/State/ZIP Code Phon e Number [facility] [address] [place] [address] [facility] (ABNORMAL) Hemoglobin (11/12/2017 12:21 AM CDT) P athologist Signature Hemoglobin 8.9 (L) 11.6 - 15.0 11/12/2017 [facility] g/dL 12:24 AM CDT [facility] Specimen Anatomical Collection Method Collection Time Receive d Time (Source) Location / / Volume Laterality Blood (Blood, 11/12/2017 12:21 11/12/2017 Venous) AM CDT 12:21 AM CDT Marlyn Santacruz APRN.N.P. LAB BLOOD ADD-ON Performing Organization Address City/State/ZIP Code Phon e Number [facility] [address] [place] [address] [facility] Trans[facility]use Red Blood Cells (11/11/2017 10:52 PM CDT) Kaye Grimes APRN, C.N.P., M.S.N. BLOOD TRANSFUSION O RDERABLES Transfuse Red Blood Cells : , 1 Units (11/11/2017 10:52 PM CDT) Kaye Grimes APRN, C.N.P., M.S.N. BLOOD TRANSFUSION O RDERABLES (ABNORMAL) Hemoglobin (11/11/2017 6:15 PM CDT) athologist Signature Hemoglobin 8.7 (L) 11.6 - 15.0 11/11/2017 [facility] g/dL 6:21 PM CDT [facility] Specimen Anatomical Collection Method Collection Time Receive d Time (Source) Location / / Volume Laterality Blood (Blood, 11/11/2017 6:15 PM 11/12/19 18 6:19 Venous) CDT PM CDT Kendal Santacruz APRNN.P. LAB BLOOD ADD-ON Performing Organization Address City/State/ZIP Code Phon e Number [facility] [address] [place] [address] [place] [facility] Transfuse Red Blood Cells (11/11/2017 3:59 [...] 11/11/2017 3:5 1 PM CDT [facility] [place] [facility] Patient Name: Carol Cooley Procedure Date: [...] then will plan on transferrin g to [place] for further therapy. Findings: The esophagus was [...] Signature Prothrombin 9.4 8.8 - 11.9 11/11/2017 [facility] Time, P sec 12:58 PM CDT [facility] INR 0.9 0.9 - 1.2 11/11/2017 [facility] 12:58 PM CDT [facility] Comment: [...] City/State/ZIP Code Phon e Number [facility] [place] [address] [facility] Lactate (11/11/2017 12:39 PM CDT) P athologist Signature Lactate, P 2.1 0.6 - 2.3 11/11/2017 [facility] mmol/L 12:59 PM CDT [facility] [place] [facility] Specimen Anatomical Collection Method Collection Time Receive d Time (Source) Location / / Volume Laterality Blood (Blood, 11/11/2017 12:39 11/11/2017 Venous) PM CDT 12:42 PM CDT Nuno Love M.D. LAB BLOOD NON ADD-ON Performing Organization Address City/State/ZIP Code Phon e Number [facility] [place] [address] [facility] documented in this encounter Visit [...] Automatic - Reason: Patient not available)[id number] ([facility] Unhold - Provider: Transfer Provider, Automatic) 3 mL, intravenous, As needed, line care, Starting on Bryanna 11/11/17 at 1230, Prior to and following infusion and between multiple consecutive infusions: sodium chloride 0.9 % injection documented in this encounter Additional Health Concerns Assessment Noted Time PHQ-9 Depression Total Score: 7 04/07/2017 9:39 AM CDT documented as of this encounter Care Teams Business Machine Mechanic Relationship Specialty Start Date End Date Blaire Bundy P.A.-C. PCP - General 02/04/17 04/26/19 documented as of this encounter
--- OUTSIDE RECORDS SUMMARY | 2022-08-03 09:41 | XMS_ITS | Encounter Summary ---
:1985 Author Organization [facility] Address [address] [place] [address] Care Team Providers Name Role Phone Blaire Bundy P.A.-C. Primary Care Provider Reason for Referral Outpatient (Routine) - Closed Specialty Diagnoses / Procedures Referred By Contact Refer red To Contact Orthopedic Surgery Diagnoses Pain Toe Pain Toe Blaire Bundy [facility] Procedures ORS CONS FOOT POD P.A.-C. [address] [place], [place] [address] Referral ID Status Reason Start Date Expiration Date Visits Requ ested Visits Authorized [id number] Closed 02/18/2018 02/18/2019 1 1 Scheduling Instructions [...] Cholecystitis With Obstruction par review Edd Moeller [facility] Procedures RAY D.O. [address] [place] [address] Referral ID Status Reason Start Date Expiration Date Visits Requ ested Visits Authorized [id number] Closed 02/11/2018 02/11/2019 1 1 Encounter Details Date Type Department Care Team Description 02/18/2018 Office Visit Department of Family Blaire Bundy perative Exam (Primary Dx); MedicineFlorentino P.A.-C. 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 Moeller in [place] on 03/03/2018. The patient notes she continues [...] 59.9 Adult ([facility]) ??? Abuse Tobacco Smoking- Smokes [...] Differential, Blood (02/18/2018 10:42 AM CDT) [facility] Method Time Signature Hemoglobin 11.3 (L) 11.6 - 02/18/2018 [facility] 15.0 g/dL 10:54 AM [facility] Hematocrit 37.3 35.5 - 02/18/2018 [facility] 44.9 % 10:54 AM [facility] Erythrocytes 4.95 3.92 - 02/18/2018 [facility] 5.13 10:54 AM CDT HEALTH x10(12)/L [facility] MCV 75.4 (L) 78.2 - 02/18/2018 [facility] 97.9 fL 10:54 AM [facility] RBC Distrib Width 15.3 12.2 - 02/18/2018 [facility] 16.1 % 10:54 AM [facility] Platelet Count 285 157 - 371 02/18/2018 [facility] x10(9)/L 10:54 AM [facility] Leukocytes 7.0 3.4 - 9.6 02/18/2018 [facility] x10(9)/L 10:54 AM [facility] Neutrophils 4.71 1.56 - 02/18/2018 [facility] 6.45 10:54 AM CDT HEALTH x10(9)/L [facility] Lymphocytes 1.76 0.95 - 02/18/2018 [facility] 3.07 10:54 AM CDT HEALTH x10(9)/L [facility] Monocytes 0.35 0.26 - 02/18/2018 [facility] 0.81 10:54 AM CDT [employer] x10(9)/L [facility] Eosinophils 0.18 0.03 - 02/18/2018 [facility] 0.48 10:54 AM CDT [employer] x10(9)/L [facility] Basophils 0.03 0.01 - 02/18/2018 [facility] 0.08 10:54 AM T [employer] x10(9)/L [facility] Specimen Anatomical Collection Method Collection Time Receive d Time (Source) Location / / Volume Laterality Blood (Blood, 02/18/2018 10:42 02/18/2018 Venous) AM CDT 10:46 AM CDT Edd Moeller D.O. 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 PCP - General 02/04/17 04/26/19 documented as of this encounter
--- OUTSIDE RECORDS SUMMARY | 2022-08-03 09:41 | XMS_ITS | Encounter Summary ---
:1985 Author Organization [facility] Address [address] [place] [address] Care Team Providers Name Role Phone Blaire Bundy P.A.-C. Primary Care Provider [phone] Reason for Visit Reason Comments Communication [facility] Hospital follow up Encounter Details Date Type Department Care Team Description 11/15/2017 Clinical Department of Suellen Beasley on ([facility] Communication Family Medicine, R, R.N. Hospital follow up) [place] [address] Clinic, [place] [address] [address] [facility] [phone] [place], [place] (Work) [phone] Social History Tobacco Use [...] How often do you attend religion or mormonism More than 4 time s [...] to pay for the very basics like [facility] hat hard 07/09/2020 food, housing, medical care, [...] documented as of this encounter Care Teams Beauty Culturist Apprentice Relationship Specialty Start Date End Date Blaire Bundy P.A.-C. PCP - General 02/04/17 04/26/19 documented as of this encounter
--- OUTSIDE RECORDS SUMMARY | 2022-08-03 09:41 | XMS_ITS | Encounter Summary ---
:1985 Author Organization [facility] Address [address] [place] [address] Care Team Providers Name Role Phone Blaire [...] documented as of this encounter Care Teams Network/Telecom Engineer Relationship Specialty Start Date End Date Blaire Bundy P.A.-C. PCP - General 02/04/17 04/26/19 documented as of this encounter
--- OUTSIDE RECORDS SUMMARY | 2022-08-03 09:41 | XMS_ITS | Encounter Summary ---
:1985 Author Organization [facility] Address [address] [place] [address] Care Team Providers Name Role Phone Blaire Bundy P.A.-C. Primary Care Provider Encounter Details Date Type Department Care Team Description 11/12/2017 Hospital Encounter HX NO MAPPING Nichole Lerma [address] [place], [place] [phone] Social History Tobacco Use [...] How often do you attend zoroastrian or methodist More than 4 time s [...] as of this encounter Care Teams Retail Marketing Specialist Relationship Specialty Start Date End Date Blaire Bundy P.A.-C. PCP - General 02/04/17 04/26/19 documented as of this encounter
--- OUTSIDE RECORDS SUMMARY | 2022-08-03 09:42 | XMS_ITS | Encounter Summary ---
:1985 Author Organization [facility] Address [address] [place] [address] Care Team Providers Name Role Phone Blaire Bundy P.A.-C. Primary Care Provider [phone] Reason for Visit Auth/Cert Specialty Diagnoses / Procedures Referred By Contact Refer red To Contact Diagnoses Calculus Of Bile Duct Without Cholangitis Or Cholecystitis With Obstruction Procedures DC ERCP W BX ENDOSCOPIC RETROGRADE CHOLANGIOPANCREATOGRAPHY Referral ID Status Reason Start Date Expiration Date Visits Requ ested Visits Authorized [id number] 1 1 Encounter Details Date Type Department Care Team Description 11/11/2017 Anesthesia Event Department of Alberto Hampton APRN, CR FLAVIO Gastroenterology in Nancy Waters M.D. [address] [place] [phone] [address] [address] Anesthesia Record Procedure Summary Procedure Name Responsible Anesthesia Start Anesthesia Stop Anesthesiologist Time Time ESOPHAGOGASTRODUODENOSCOPY Alberto Hampton APRN, 11/11/17 1634 11/11/17 1655 TANK BUILDER Events Date Time Event Comment 11/11/2017 1634 An Start Machine/Equipmen t Checked Infection Precautions Foll owed Procedure/Site Verified NPO Sta tus Verified Supine Standard ASA Mon itors Applied 1637 Turnover to Proceduralist 1653 Turnover to ANE Staff 1653 Proc Fin 1655 an stop data 1655 An End I completed my h andoff to the receiving staff during [facility] ch we 1. Identified the patient 2. [...] by Abdomen; and dermabond; Antionette Barnes R.N. [facility] DRSG TIMBER APPRAISER WND ADH NEONAT , Ryanu jonathan Automated [...] Procedure Summary Date: 11/11/17 Room / Location: [facility] 1412 / [facility] GI [facility] Anesthesia Start: 1634 [...] documented as of this encounter Care Teams Crm Solution Architect Relationship Specialty Start Date End Date Blaire Bundy P.A.-C. PCP - General 02/04/17 04/26/19 documented as of this encounter
--- OUTSIDE RECORDS SUMMARY | 2022-08-03 09:42 | XMS_ITS | Encounter Summary ---
:1985 Author Organization [facility] Address [address] [place] [address] Care Team Providers Name Role Phone Blaire Bundy P.A.-C. Primary Care Provider [phone] Reason for Visit Reason Comments Chest Pain Pain With Breathing Encounter Details Date Type Department Care Team Description 11/04/2017 Emergency [place] [facility] Berny Garcia M.D. [address] [place] [address] Pleurisy (Primary Dx) Department Erlin Garcia M.D. 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 Pleurisy (Armenian)documented in this encounter Medications at Time of [...] family history of her father having an CA in his 50s she is presenting now [...] Troponin T, S <0.01 <0.01 ng/mL 11/04/2017 [facility] 6:03 PM CDT [facility] Comment: Biotin has been identified by the doug vegar as a potential interfering substance. ??Higher concentr ations of biotin may be found in multivitamins, hair/nail supple ments, and workout supplements. ??If the result does not [facility] clinical observations, repeat testing after [...] Phon e Number [facility] [address] [place] [address] [facility] (ABNORMAL) D-Dimer (11/04/2017 5:43 PM CDT) athologist Signature D-Dimer, P 2.06 (H) <0.50 11/04/2017 [facility] mcg/mL FEU 5:59 PM CDT [facility] [...] Phon e Number [facility] [address] [place] [address] [facility] (ABNORMAL) CMP (Comprehensive Metabolic Panel) (11/04/2017 5:43 PM CDT) athologist Signature Potassium, P 4.3 3.6 - 5.2 11/04/2017 [facility] mmol/L 6:03 PM [facility] Sodium, P 139 135 - 145 11/04/2017 [facility] mmol/L 6:03 PM [facility] Chloride, P 100 98 - 107 11/04/2017 [facility] mmol/L 6:03 PM [facility] Bicarbonate, P 26 22 - 29 11/04/2017 [facility] mmol/L 6:03 PM [facility] Anion Gap, P 13 7 - 15 11/04/2017 [facility] 6:03 PM [facility] BUN (Blood Urea 11 6 - 21 11/04/2017 [facility] Nitrogen), P mg/dL 6:03 PM [facility] Creatinine 0.69 0.59 - 11/04/2017 [facility] 1.04 mg/dL 6:03 PM [facility] eGFR-Black/Afri >90 >=60 11/04/2017 [facility] can [place] mL/min/BSA 6:03 PM [facility] Comment: ----ADDITIONAL INFORMATION---- Estimated GFR calculated using the 2009 CKD_EPI creatinine equation. eGFR Non-Black/ >90 >=60 mL/min/BSA 11/04/2017 6:03 PM [facility] [place] [facility] Comment: ----ADDITIONAL INFORMATION---- Estimated GFR calculated using the 2009 CKD_EPI creatinine equation. Calcium, Total, P 9.6 8.9 - 10.1 11/04/2017 6:03 PM [facility] mg/dL [facility] Glucose, P 98 70 - 140 mg/dL 11/04/2017 6:03 PM [facility] Protein, Total, P 7.5 6.3 - 7.9 g/dL 11/04/2017 6:03 P [facility] Albumin, P 3.9 3.5 - 5.0 g/dL 11/04/2017 6:03 PM [facility] LAB Aspartate 1084 (H) 8 - 43 U/L 11/04/2017 6:23 PM [facility] ([facility]), P [facility] Alkaline Phosphatase, P 167 (H) 37 - 98 U/L 11/04/2017 6:0 3 PM [facility] LAB Alanine Aminotransferase 1350 (H) 7 - 45 U/L 11/04/2017 6:2 3 PM [facility] (ALT), [facility] Bilirubin, Total, P 2.8 (H) <=1.2 mg/dL 11/04/2017 6:03 PM [facility] LAB Specimen Anatomical Collection Method Collection Time Receive d Time (Source) Location / / Volume Laterality Blood (Blood, 11/04/2017 5:43 PM 11/05/19 18 5:43 Venous) CDT CDT Berny Garcia M.D. LAB BLOOD ADD-ON Performing Organization Address City/State/ZIP Code Phon e Number [facility] [address] [employer] [place] [address] [facility] (ABNORMAL) CBC with Differential (11/04/2017 5:43 PM CDT) [facility] Method Time Signature Hemoglobin 13.5 11.6 - 11/04/2017 [facility] 15.0 g/dL 5:46 PM [facility] Hematocrit 41.5 35.5 - 11/04/2017 [facility] 44.9 % 5:46 PM [facility] Erythrocytes 5.08 3.92 - 11/04/2017 [facility] 5.13 5:46 PM [facility] x10(12)/L [facility] MCV 81.7 78.2 - 11/04/2017 [facility] 97.9 fL 5:46 PM CDT [facility] RBC Distrib Width 13.9 12.2 - 11/04/2017 [facility] 16.1 % 5:46 PM CDT [facility] Platelet Count 278 157 - 371 11/04/2017 [facility] x10(9)/L 5:46 PM CDT [facility] Leukocytes 4.8 3.4 - 9.6 11/04/2017 [facility] x10(9)/L 5:46 PM CDT [facility] Neutrophils 3.37 1.56 - 11/04/2017 [facility] 6.45 5:46 PM CDT [facility] Lymphocytes 1.11 0.95 - 11/04/2017 [facility] 3.07 5:46 PM CDT [facility](9[facility] Monocytes 0.23 (L) 0.26 - 11/04/2017 [facility] 0.81 5:46 PM CDT [facility]ALTH x10(9)/L [facility] Eosinophils 0.07 0.03 - 11/04/2017 [facility] 0.48 5:46 PM CDT [facility](9[facility] Basophils 0.03 0.01 - 11/04/2017 [facility] 0.08 5:46 PM CDT [facility]ALTH x10(9)/L [facility] Specimen Anatomical Collection Method Collection Time Receive d Time (Source) Location / / Volume Laterality Blood (Blood, 11/04/2017 5:43 PM 11/05/19 18 5:43 Venous) CDT PM CDT Berny Garcia M.D. LAB BLOOD ADD-ON Performing Organization Address City/State/ZIP Code Phon e Number [facility] [address] [facility] [place] [address] [facility] DX Chest AP or PA [...] Pulmonary vasculature is unremarkable. No pneumothorax, focal eramso g consolidation or pleural effusion. Berny Garcia M.D. IMG DIAGNOSTIC IMAGING PROCE DURES ECG 12 Lead (11/04/2017 5:09 PM CDT) P athologist Signature Ventricular Rate 76 BPM MUSE ECG/Min DE Interval 158 ms MUSE QRSD Interval 82 ms MUSE QT Interval 358 ms MUSE QTC Interval 402 ms MUSE P Ruby 47 degrees MUSE R Ruby 38 degrees MUSE T Wave Ruby 33 degrees MUSE Specimen Anatomical Collection Method [...] documented as of this encounter Care Teams Volunteer Services Coordinator Relationship Specialty Start Date End Date Blaire Bunyd P.A.-C. PCP - General 02/04/17 04/26/19 documented as of this encounter
--- OUTSIDE RECORDS SUMMARY | 2022-08-03 09:42 | XMS_ITS | Encounter Summary ---
:1985 Author Organization [facility] Address [address] [place] [address] Care Team Providers Name Role Phone Blaire Bundy P.A.-C. Primary Care Provider [phone] Reason for Visit Reason Comments Shortness of Breath pt was here Wed. and was dx with pleurisy and is not getting better. c/o SOB, heartburn, nausea and has white in her stool Encounter Details Date Type Department Care Team Description 11/07/2017 Emergency [place] [facility] Dimitri Car, Dil ated Common Bile Duct (Primary Dx); Department M.D. 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 - 11/07/2017 8:51 PM CDT YOU SHOULD NOT HAVE ANYTHING TO EAT OR DRINK AFTER 12 MIDNIGHT. YOU DO NEED A MORNING NEWS PRODUCER AFTER THE ERCP PLANNED FOR TOMORROW AFTERNOON TENTATIVELY. AttachmentsThe following attachments cannot be sent through Care Everywhere. About Your ERCP, (Endoscopic Retrograde Cholangiopancreatography) (Swedish) documented in this encounter Medications at Time [...] with hyperactivity disorder presents ambulatory to the [place] [facility] Department with her friend via private [...] a cholecystectomy done. 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 [...] P athologist Signature HCG, <0.5 IU/L 11/07/2017 [facility] Quantitative, 7:25 PM CDT [facility] [place] [facility] Comment: Biotin has been identified by [...] Code Phon e Number [facility] [address] [place] [address] [facility] Lactate (11/07/2017 6:48 PM CDT) P athologist Signature Lactate, P 0.8 0.6 - 2.3 11/07/2017 [facility] mmol/L 7:08 PM CDT [facility] Specimen Anatomical Collection Method Collection Time Receive d Time (Source) Location / / Volume Laterality Blood (Blood, 11/07/2017 6:48 PM 11/08/19 18 6:51 Venous) CDT PM CDT Dimitri Car M.D. LAB BLOOD NON ADD-ON Performing Organization Address City/State/ZIP Code Phon e Number [facility] [address] [place] [address] [facility] (ABNORMAL) Hepatic Function Panel (11/07/2017 6:48 PM CDT) [facility] Method Time Signature Bilirubin, Total, S 2.0 (H) <=1.2 11/07/2017 [facility] mg/dL 7:14 PM CDT [facility] Bilirubin, Direct, S 1.5 (H) 0.0 - 0.3 11/07/2017 [facility] mg/dL 7:14 PM CDT [facility] Aspartate 775 (H) 8 - 43 11/07/2017 [facility] Aminotransferase U/L 7:26 PM T [facility] Alanine 1877 (H) 7 - 45 11/07/2017 [facility] Aminotransferase U/L 7:26 PM T [facility] Alkaline 275 (H) 37 - 98 11/07/2017 [facility] Phosphatase, S U/L 7:14 PM CDT [facility] Albumin, S 4.0 3.5 - 5.0 11/07/2017 [facility] g/dL 7:14 PM CDT [facility] Protein, Total, S 7.1 6.3 - 7.9 11/07/2017 [facility] g/dL 7:14 PM T [facility] Specimen Anatomical Collection Method Collection Time Receive d Time (Source) Location / / Volume Laterality Blood (Blood, 11/07/2017 6:48 PM 11/08/19 18 6:51 Venous) CDT PM CDT Dimitri Car M.D. LAB BLOOD ADD-ON Performing Organization Address City/State/ZIP Code Phon e Number [facility] [address] [place], [place] [address] [address] [facility] BMP (Basic Metabolic Panel) (11/07/2017 6:48 PM CDT) athologist Signature Potassium, P 4.3 3.6 - 5.2 11/07/2017 [facility] mmol/L 7:11 PM T [facility] Sodium, P 139 135 - 145 11/07/2017 [facility] mmol/L 7:11 PM [facility] Chloride, P 100 98 - 107 11/07/2017 [facility] mmol/L 7:11 PM [facility] Bicarbonate, P 25 22 - 29 11/07/2017 [facility] mmol/L 7:11 PM [facility] Anion Gap, P 14 7 - 15 11/07/2017 [facility] 7:11 PM [facility] BUN (Blood Urea 16 6 - 21 11/07/2017 [facility] Nitrogen), P mg/dL 7:11 PM [facility] Creatinine 0.76 0.59 - 11/07/2017 [facility] 1.04 mg/dL 7:11 PM [facility] eGFR-Black/Afri >90 >=60 11/07/2017 [facility] can Beninese mL/min/BSA 7:11 PM [facility] Comment: ----ADDITIONAL INFORMATION---- Estimated GFR calculated using the 2009 CKD_EPI creatinine equation. eGFR Non-Black/ >90 >=60 mL/min/BSA 11/07/2017 7:11 PM [facility] [place] [facility] Comment: ----ADDITIONAL INFORMATION---- Estimated GFR calculated using the 2009 CKD_EPI creatinine equation. Calcium, Total, P 9.5 8.9 - 10.1 mg/dL 11/07/2017 7 :11 PM T [facility] Glucose, P 129 70 - 140 mg/dL 11/07/2017 7:11 PM CDT [facility] Specimen Anatomical Collection Method Collection Time Receive d Time (Source) Location / / Volume Laterality Blood (Blood, 11/07/2017 6:48 PM 11/08/19 6:51 Venous) CDT PM CDT Dimitri Car M.D. LAB BLOOD ADD-ON Performing Organization Address City/State/ZIP Code Phon e Number [facility] [address] [place] [address] [facility] Lipase (11/07/2017 6:48 PM CDT) athologist Signature Lipase, P 45 13 - 60 U/L 11/07/2017 [facility] 7:05 PM CDT [facility] Specimen Anatomical Collection Method Collection Time Receive d Time (Source) Location / / Volume Laterality Blood 11/07/2017 6:48 PM 8 6:51 CDT PM CDT Dimitri Car M.D. LAB BLOOD ADD-ON Performing Organization Address City/State/ZIP Code Phon e Number [facility] [place] [address] [facility] CBC with Differential (11/07/2017 6:48 PM CDT) athologist Signature Hemoglobin 13.5 11.6 - 11/07/2017 [facility] 15.0 g/dL 6:54 PM CDT [facility] Hematocrit 42.1 35.5 - 11/07/2017 [facility] 44.9 % 6:54 PM CDT [facility] Erythrocytes 4.97 3.92 - 11/07/2017 [facility] 5.13 6:54 PM CDT [facility](12[facility] MCV 84.7 78.2 - 11/07/2017 [facility] 97.9 fL 6:54 PM CDT [facility] RBC Distrib Width 14.9 12.2 - 11/07/2017 [facility] 16.1 % 6:54 PM CDT [facility] Platelet Count 294 157 - 371 11/07/2017 [facility] x10(9)/L 6:54 PM CDT [facility] Leukocytes 7.6 3.4 - 9.6 11/07/2017 [facility] x10(9)/L 6:54 PM CDT [facility] Neutrophils 5.64 1.56 - 11/07/2017 [facility] 6.45 6:54 PM CDT [facility](9[facility] Lymphocytes 1.33 0.95 - 11/07/2017 [facility] 3.07 6:54 PM CDT [facility](9[facility] Monocytes 0.50 0.26 - 11/07/2017 [facility] 0.81 6:54 PM CDT [facility](9[facility] Eosinophils 0.04 0.03 - 11/07/2017 [facility] 0.48 6:54 PM CDT [facility] Basophils 0.04 0.01 - 11/07/2017 [facility] 0.08 6:54 PM CDT [facility] Specimen Anatomical Collection Method Collection Time Receive d Time (Source) Location / / Volume Laterality Blood (Blood, 11/07/2017 6:48 PM 11/08/19 18 6:51 Venous) CDT PM CDT Dimitri Car M.D. LAB BLOOD ADD-ON Performing Organization Address City/State/ZIP Code Phon e Number [facility] [address] [place] [address] [facility] documented in this encounter Visit Diagnoses [...] documented as of this encounter Care Teams Systems Support Officer Relationship Specialty Start Date End Date Blaire Bundy P.A.-C. PCP - General 02/04/17 04/26/19 documented as of this encounter
--- OUTSIDE RECORDS SUMMARY | 2022-08-03 09:42 | XMS_ITS | Encounter Summary ---
:1985 Author Organization [facility] Address [address] [place] [address] Care Team Providers Name Role Phone Blaire Bundy P.A.-C. 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 OR Neto Monroy, [address] STATION CHIEF, BRENDA, [place] [address] [address] [facility] [phone] [place] [phone] Anesthesia Record Procedure Summary Procedure Name Responsible [...] h andoff to the receiving staff [facility] 1. Identified the patient [...] and henok; Antionette Cooper CRT, R.N. [facility] WND ADH NEONAT 2X3.75 d, Schedul ing [...] How often do you attend shinto or pentecostalism More than 4 time s [...] Procedure Summary Date: 11/08/17 Room / Location: [address] 01 140 / [facility] OR Anesthesia Start: 1544 Anesthesia Stop: [...] patient / legal guardian, or through an diplomatic interpreter/translator; patient evaluated and approved for anesthesia [...] as of this encounter Care Teams Photo Stylist Relationship Specialty Start Date End Date Blaire Bundy P.A.-C. PCP - General 02/04/17 04/26/19 documented as of this encounter
--- OUTSIDE RECORDS SUMMARY | 2022-08-03 09:42 | XMS_ITS | Encounter Summary ---
:1985 Author Organization [facility] Address [address] [place] [address] Care Team Providers Name Role Phone Blaire Bundy P.A.-C. 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 [address] [phone] Social History Tobacco Use Types Packs/Day Years [...] How often do you attend adventism or confucianist More than 4 time s [...] Care Providers: Blaire Thornton P.A.-C. (General) [address] [place] [phone] Primary Care Provider Primary Care Provider Admission Date: 11/11/2017 Discharge Date: 11/12/2017 PRINCIPAL DIAGNOSIS Melena SECONDARY DIAGNOSES Active Problems: Hypovolemic Shock (HCC) Morbid obesity Resolved Problems: * No resolved hospital problems. * Operative Procedures: Scheduled (Blank), Completed (Comp) or Canceled (Can) Case IDs Date Procedure Surgeon Location Status [id number] 11/11/17 ESOPHAGOGASTRODUODENOSCOPY Rubio Baker M.D. [facility] Blank Past Medical History: Diagnosis Date ??? Sleep Apnea Past Surgical History: Procedure Laterality Date ??? ENDOSCOPIC RETROGRADE CHOLANGIOPANCREATOGRAPHY (ERCP) N/A 11/08/2017 Procedure: ENDOSCOPIC RETROGRADE CHOLANGIOPANCREATOGRAPHY; Surgeon: Rubio Baker M.D.; Location: [facility] OR ??? LAPAROSCOPIC APPENDECTOMY N/A 09/08/2017 Procedure: LAPAROSCOPIC APPENDECTOMY; Surgeon: Edd Moeller D.O.; Location: [facility] OR ??? OTHER CONVERTED SHX (SEE COMMENT) [...] blood. Coordinated care with [facility] in [place]. Patient will be transferred via ambulance to [...] bleeding and would like to transfer to [place]. Still gets winded with any movement. OBJECTIVE [...] ERCPist to treat this. Will transfer to [place] this morning. NPO. Discussed case with Dr. [...] Surgeon: Rubio Baker M.D.; Location: [facility] OR ??? LAPAROSCOPIC APPENDECTOMY N/A 09/08/2017 Procedure: LAPAROSCOPIC APPENDECTOMY; Surgeon: Edd Moeller D.O.; Location: [facility] OR ??? OTHER CONVERTED SHX (SEE COMMENT) [...] 3:51 PM CDTAssociated Order(s): UPPER GI ENDOSCOPY [facility] [place] [facility] Patient Name: Carol Cooley Procedure Date: [...] specimens collected. Recommendation: - After discussing with [place], as she has achieved some hemostasis, will observe. - Continue Protonix 40 mg IV BID. - Minimal clear liquids are OK. - If she continues to significantly bleed, and certainly if she becomes unstable, then will plan on transferring to [place] for further therapy. Findings: The esophagus was [...] Body Mass Index 50.0 To 59.9 Adult ([facility]) ??? Abuse Tobacco Smoking ??? [...] Surgeon: Rubio Baker M.D.; Location: [facility] OR ??? LAPAROSCOPIC APPENDECTOMY N/A 09/08/2017 Procedure: LAPAROSCOPIC APPENDECTOMY; Surgeon: Edd Moeller D.O.; Location: [facility] OR ??? OTHER CONVERTED SHX (SEE COMMENT) [...] - 11/12/2017 9:26 AM CDT Transfer to [place] report given to Don Gabrielle Nguyen R.N. - 11/12/2017 9:22 AM CDT Goals: Clinical Goals for the Shift: reduce heart rate; improve hemoglobin level Identify possible barriers to meeting goals/advancing plan of care: none Stability of the patient: Moderately Stable - Low risk of patient condition declining or worsening End of Shift Summary: [place] to transfer to [place] Marcus Mata R.N. 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 LAB BLOOD ADD-ON Performing Organization Address City/State/ZIP Code Phon e Number [facility] [address] [place] [address] [facility] (ABNORMAL) Hemoglobin (11/12/2017 12:21 AM CDT) P athologist Signature Hemoglobin 8.9 (L) 11.6 - 15.0 11/12/2017 [facility] g/dL 12:24 AM CDT [facility] Specimen Anatomical Collection Method Collection Time Receive d Time (Source) Location / / Volume Laterality Blood (Blood, 11/12/2017 12:21 11/12/2017 Venous) AM CDT 12:21 AM CDT Kendal Santacruz APRNNLebron. LAB BLOOD ADD-ON Performing Organization Address City/State/ZIP Code Phon e Number [facility] [address] [place] [address] [facility] Transfuse Red Blood Cells (11/11/2017 10:52 PM CDT) Kaye Grimes APRN, C.N.P., M.S.N. BLOOD TRANSFUSION O RDERABLES Transfuse Red Blood Cells : , 1 Units (11/11/2017 10:52 PM CDT) Kendal Boudreaux APRNN.P., M.S.N. BLOOD TRANSFUSION O RDERABLES (ABNORMAL) Hemoglobin (11/11/2017 6:15 PM CDT) P athologist Signature Hemoglobin 8.7 (L) 11.6 - 15.0 11/11/2017 [facility] g/dL 6:21 PM CDT [facility] Specimen Anatomical Collection Method Collection Time Receive d Time (Source) Location / / Volume Laterality Blood (Blood, 11/11/2017 6:15 PM 11/12/19 18 6:19 Venous) CDT PM CDT Kendal Santacruz APRNNLebron. LAB BLOOD ADD-ON Performing Organization Address City/State/ZIP Code Phon e Number [facility] [address] [place] [address] [facility] Transfuse Red Blood Cells (11/11/2017 3:59 PM CDT) Kendal Santacruz APRNN.P. BLOOD TRANSFUSION ORDER JORI Critical Care (11/11/2017 3:52 PM CDT) Narrative Nuno Love M.D. - 11/11/2017 3:5 2 PM CDT Nuno Lvoe M.D. ? 11/11/2017 ??3:53 PM Critical Care [...] provider in my specialty: no ?? Nuno Loev M.D. PROCEDURE/MINOR SURGICAL ORD ERABLES UPPER GI ENDOSCOPY (11/11/2017 3:51 PM CDT) Specimen (Source) Anatomical Location Collection Method / Collectio n Time Received Time / Laterality Volume Narrative This result has an attachment that is no t available. Procedure Note Rubio Baker M.D. - 11/11/2017 3:5 1 PM CDT [facility] [place] [facility] Patient Name: Carol Cooley Procedure Date: [...] specimens collected. Recommendation: - After discussing with [place], as s he has achieved some hemostasis, will observe. - Continue Protonix 40 mg IV BID. - Minimal clear liquids are OK. - If she continues to significantly ble ed, and certainly if she becomes unstable, then will plan on transferrin g to [place] for further therapy. Findings: The esophagus was [...] Signature Prothrombin 9.4 8.8 - 11.9 11/11/2017 [facility] Time, P sec 12:[address] [facility] INR 0.9 0.9 - 1.2 11/11/2017 [facility] 12:[address] [facility] Comment: Standard intensity warfarin therapeutic range: 2.0 to 3.0 High intensity warfarin therapeutic rang e: 2.5 to 3.5 Specimen Anatomical Collection Method Collection Time Receive d Time (Source) Location / / Volume Laterality Blood (Blood, 11/11/2017 12:39 11/11/2017 Venous) PM CDT 12:42 PM CDT Nuno Love M.D. LAB BLOOD ADD-ON Performing Organization Address City/State/ZIP Code Phon e Number [facility] [address] [place] [address] [place] [facility] Lactate (11/11/2017 12:39 PM CDT) P athologist Signature Lactate, P 2.1 0.6 - 2.3 11/11/2017 [facility] mmol/L 12:59 PM CDT [facility] Specimen Anatomical Collection Method Collection Time Receive d Time (Source) Location / / Volume Laterality Blood (Blood, 11/11/2017 12:39 11/11/2017 Venous) PM CDT 12:42 PM CDT Nuno Love M.D. LAB BLOOD NON ADD-ON Performing Organization Address City/State/ZIP Code Phon e Number [facility] [address] [place] [address] [facility] documented in this encounter Visit [...] (Gi pablo - Provider: Cammie Schuster RBrittaneyNBrittaney)1608 ([facility] Hold - Provider: Transfer Provider, Automatic - Reason: Patient not available)1735 ([facility] Unhold - Provider: Transfer Provider, Automatic)2032 (Given - Provider: Ruben AyonNBrittaney) 0830 (Given - Provider: Ruben HamlinNBrittaney)0903 (Given - Provider: Gabrielle Nguyen R.N.) 10 mL, intravenous, As needed, line care , Starting on Bryanna 11/11/17 at 1230, Peripheral Intravenous Catheter and Rapid Infusion Catheter, prior to blood sampling, post blood transfusion or post blood sampling sodium chloride injection 3 mL 1608 ([facility] Hold - Provider: Transfer Provider, Automatic - Reason: Patient not available)1735 ([facility] Unhold - Provider: Transfer Provider, Automatic) 3 mL, intravenous, As needed, line care, Starting on Bryanna 11/11/17 at 1230, Prior to and following infusion and between multiple consecutive infusions: sodium chloride 0.9 % injection documented in this encounter Additional Health Concerns Assessment Noted Time PHQ-9 Depression Total Score: 7 04/07/2017 9:39 AM CDT documented as of this encounter Care Teams Motion Study Engineer Relationship Specialty Start Date End Date Blaire Bundy P.A.-C. PCP - General 02/04/17 04/26/19 documented as of this encounter
--- OUTSIDE RECORDS SUMMARY | 2022-08-03 09:42 | XMS_ITS | Encounter Summary ---
:1985 Author Organization [facility] Address [address] [place] [address] Care Team Providers Name Role Phone Blaire Bundy P.A.-C. Primary Care Provider [phone] Encounter Details Date Type Department Care Team Description 11/08/2017 Orders Only Department of Rubio Baker Calculus Of Bile Duct Gastroenterology in Marko Marcos M.D. Without Cholangitis [place], [place] [address] Or Cholecystitis With [address] [place], [place] Obstruction ([place] [address]0 [phone] Dx) [phone] Social History Tobacco Use Types Packs/Day Years [...] How often do you attend adventist or christian More than 4 time s [...] to pay for the very basics like [employer] hat hard 07/09/2020 food, housing, medical care, [...] as of this encounter Care Teams Supervisor Telephone Answering Service Relationship Specialty Start Date End Date Blaire Bundy P.A.-C. PCP - General 02/04/17 04/26/19 documented as of this encounter
--- OUTSIDE RECORDS SUMMARY | 2022-08-03 09:42 | XMS_ITS | Encounter Summary ---
:1985 Author Organization [facility] Address [address] [place] [address] Care Team Providers Name Role Phone Blaire Bundy P.A.-C. 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 PAR REVIEW Rubio Baker [facility] [place] [facility] Procedures [place] Sera [address] [address] Referral ID Status Reason Start Date Expiration Date Visits V isits Requested Authorized [id number] Closed Specialty 11/08/2017 05/07/2018 1 1 Services Required Reason for Visit Auth/Cert Specialty Diagnoses / Procedures Referred By Contact Refer red To Contact Diagnoses 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 Without Cholangitis NEHEMIAH RIVERA [address] [place] [address] NEHEMIAH Rivera Obstruction [phone] [address] Social History Tobacco Use Types Packs/Day [...] Everywhere. About Your ERCP, (Endoscopic Retrograde Cholangiopancreatography) (Danish) documented in this encounter Medications at Time [...] APPENDECTOMY; Surgeon: Edd Moeller D.O.; Location: [facility] OR ??? OTHER CONVERTED SHX (SEE COMMENT) [...] Used ??? Alcohol use No Lives in [place] working at the [employer] there. Has two sons, the [...] - 11/08/2017 3:08 PM CDTAssociated Order(s): ERCP [facility] [place] [facility] Patient Name: Carol Cooley Procedure Date: [...] anesthesia, benzocaine spray and indomethacin 100 mg GA Complications: No immediate complications. Estimated blood loss: [...] 1 : Perianal for CRE Swab Perianal [facility] SURVEILLANCE PCR Rubio Baker M.D. 11/08/2017 1539 Drains None Estimated Blood Loss No blood loss documented. Implants * No implants in log * Rubio Baker M.D. documented in this encounter Plan of Treatment Scheduled Referrals Name Type Priority Associated Diagnoses Order S [facility] General Surgery - Outpatient Referral Routine [...] Duct Without Cholangitis Or Cholecystitis With Obstruction [facility] SURVEILLANCE PCR Routine [...] Surveillance PCR Perianal (11/08/2017 3:39 PM CDT) [facility] gist Method Time Signature Specimen RECTAL SWAB 11/09/2017 [facility] source 1:40 PM CDT [facility] KPC PCR Negative Not 11/09/2017 [facility] Applicable 1:40 PM CDT [facility] NDM PCR Negative Not 11/09/2017 [facility] Applicable 1:40 PM CDT [facility] Comment: ----ADDITIONAL INFORMATION---- This test was developed [...] Organization Address City/State/ZIP Code Phon e Number [facility] LABORATORIES - [address] [address] [facility] ERCP (11/08/2017 3:08 PM CDT) Specimen (Source) Anatomical Location Collection Method / Collectio n Time Received Time / Laterality Volume Narrative This result has an attachment that is no t available. Procedure Note Rubio Baker M.D. - 11/08/2017 3:0 8 PM CDT [facility] Patient Name: Carol Cooley Procedure Date: [...] benzocaine spray an d indomethacin 100 mg GA Complications: No immediate complication s. Estimated blood [...] documented as of this encounter Care Teams Hunting Guide Relationship Specialty Start Date End Date Blaire Bundy P.A.-C. PCP - General 02/04/17 04/26/19 documented as of this encounter
--- OUTSIDE RECORDS SUMMARY | 2022-08-03 09:42 | XMS_ITS | Encounter Summary ---
:1985 Author Organization [facility] Address [address] [place] [address] Care Team Providers Name Role Phone Blaire Bundy P.A.-C. 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 CHOLANGIOPANCREATOGRAPHY [place], [place] [address] [address] [place], [place] [phone] [address] Social History Tobacco Use Types Packs/Day [...] How often do you attend voodoo or tenriism More than 4 time s [...] Everywhere. About Your ERCP, (Endoscopic Retrograde Cholangiopancreatography) (Italian) documented in this encounter Medications at Time [...] LAPAROSCOPIC APPENDECTOMY; Surgeon: Edd Moeller D.O.; Location: [facility] OR ??? OTHER CONVERTED [...] Used ??? Alcohol use No Lives in [place], working at the [employer] there. Has two sons, the youngest 4 [...] - 11/08/2017 3:08 PM CDTAssociated Order(s): ERCP [facility] Patient Name: Carol Cooley Procedure Date: [...] anesthesia, benzocaine spray and indomethacin 100 mg MD Complications: No immediate complications. Estimated blood loss: [...] 1 : Perianal for CRE Swab Perianal [facility] SURVEILLANCE PCR Rubio Baker M.D. 11/08/2017 1539 Drains None Estimated Blood Loss No blood loss documented. Implants * No implants in log * Rubio Baker M.D. documented in this encounter Plan of Treatment Scheduled Referrals Name Type Priority Associated Diagnoses Order S [facility] General Surgery - Outpatient Referral [...] Duct Without Cholangitis Or Cholecystitis With Obstruction [facility] SURVEILLANCE PCR Routine 11/08/2017 Calculus Of Bile [...] Surveillance PCR Perianal (11/08/2017 3:39 PM CDT) [facility] gist Method Time Signature Specimen RECTAL SWAB 11/09/2017 [facility] source 1:40 PM CDT [facility] KPC PCR Negative Not 11/09/2017 [facility] Applicable 1:40 PM CDT [facility] NDM PCR Negative Not 11/09/2017 [facility] Applicable 1:40 PM CDT [facility] Comment: ----ADDITIONAL INFORMATION---- This test was developed and its performa nce characteristics determined by [facility] in a manner consistent with [...] Address City/State/ZIP Code Phon e Number [facility]ATORIES - [address] [address] [facility] ERCP (11/08/2017 3:08 PM CDT) Specimen (Source) Anatomical Location Collection Method / Collectio n Time Received Time / Laterality Volume Narrative This result has an attachment that is no t available. Procedure Note Rubio Baker M.D. - 11/08/2017 3:0 8 PM CDT [facility] Patient Name: Carol Cooley Procedure Date: [...] benzocaine spray an d indomethacin 100 mg MD Complications: No immediate complication s. Estimated blood [...] of this encounter Care Teams Health And Safety Technician Relationship Specialty Start Date End Date Blaire Bundy P.A.-C. PCP - General 02/04/17 04/26/19 documented as of this encounter
--- OUTSIDE RECORDS SUMMARY | 2022-08-03 09:42 | XMS_ITS | Encounter Summary ---
:1985 Author Organization [facility] Address [address] [place] [address] Care Team Providers Name Role Phone Blaire [...] as of this encounter Care Teams Mechanical Lead Relationship Specialty Start Date End Date Blaire Bundy P.A.-C. PCP - General 02/04/17 04/26/19 documented as of this encounter
--- OUTSIDE RECORDS SUMMARY | 2022-08-03 09:42 | XMS_ITS | Encounter Summary ---
:1985 Author Organization [facility] Address [address] [place] [address] Care Team Providers Name Role Phone Blaire Bundy P.A.-C. 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 Procedures DERRICK Zamora [address] [place] [address] Referral ID Status Reason Start Date Expiration Date Visits V isits Requested Authorized [id number] Closed Specialty 11/08/2017 05/07/2018 1 1 Services Required Encounter Details Date Type Department Care Team Description 11/11/2017 Comprehensive Visit Department of Adonis Baker M.D. [address] [place] [address] Pain Right Upper Quadrant (Primary Dx); [place] M.[place]. 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 1:05 PM CDT [facility] Rh Type NEG 11/11/[address] [facility] 1:05 PM CDT [facility] Antibody Screen NEG 11/11/[address] [facility] 1:16 PM CDT [facility] Type & Screen 11/14/[address] [facility] Expiration 23:59 [facility] ELXM Eligible Y 11/11/[address] [facility] 1:16 PM CDT [facility] Specimen Anatomical Collection Method Collection Time Receive d Time (Source) Location / / Volume Laterality Blood (Blood, 11/11/2017 12:30 11/11/2017 Venous) PM CDT 12:41 PM CDT Seng Reyna M.D. LAB BLOOD BANK TEST ORDERABL ES Performing Organization Address City/State/ZIP Code Phon e Number [facility] [address] [facility] [facility] [place] [address] [facility] Lipase (11/11/2017 12:18 PM CDT) athologist Signature Lipase, S 42 13 - 60 U/L 11/11/[address] [facility] 1:01 PM CDT [facility] Specimen Anatomical Collection Method Collection Time Receive d Time (Source) Location / / Volume Laterality Blood (Blood, 11/11/2017 12:18 11/11/2017 Venous) PM CDT 12:40 PM CDT Seng Reyna M.D. LAB BLOOD ADD-ON Performing Organization Address City/State/ZIP Code Phon e Number [facility] [address] [place] [address] [facility] (ABNORMAL) CMP (Comprehensive Metabolic Panel) (11/11/2017 12:18 PM CDT) athologist Signature Potassium, S 5.4 (H) 3.6 - 5.2 11/11/[address] [facility] mmol/L 1:01 PM CDT [facility] Sodium, S 138 135 - 145 11/11/[address] [facility] mmol/L 1:01 PM CDT [facility] Chloride, S 103 98 - 107 11/11/[address] [facility] mmol/L 1:01 PM CDT [facility] Bicarbonate, S 23 22 - 29 11/11/[address] [facility] mmol/L 1:01 PM CDT [facility] Anion Gap 12 7 - 15 11/11/[address] [facility] 1:01 PM CDT [facility] BUN (Blood Urea 35 (H) 6 - 21 11/11/[address] [facility] Nitrogen), S mg/dL 1:01 PM CDT [facility] Creatinine 0.69 0.59 - 11/11/[address] [facility] 1.04 mg/dL 1:01 PM [facility] eGFR >90 >=60 11/11/[address] [facility] Non-Black/Afric mL/min/BSA 1:[address] [facility] Comment: ----ADDITIONAL INFORMATION---- Estimated GFR calculated using the 2009 CKD_EPI creatinine equation. eGFR Black/ >90 >=60 mL/min/BSA 11/11/2017 1:01 PM [facility] Comment: ----ADDITIONAL INFORMATION---- Estimated GFR calculated using the 2009 CKD_EPI creatinine equation. Calcium, Total, S 8.9 8.9 - 10.1 11/11/2017 1:[address] [facility] mg/dL [facility] Glucose, S 153 (H) 70 - 140 mg/dL 11/11/2017 1:01 PM [facility] LAB Protein, Total, S 6.0 (L) 6.3 - 7.9 g/dL 11/11/2017 1:01 P M [facility] LAB Albumin, S 3.4 (L) 3.5 - 5.0 g/dL 11/11/2017 1:01 PM [facility] Aspartate 23 8 - 43 U/L 11/11/2017 1:01 PM [facility] Amin[facility] ([facility]), S [facility] Alkaline Phosphatase, S 124 (H) 37 - 98 U/L 11/11/2017 1:0 1 PM [facility] Alanine Aminotransferase 370 (H) 7 - 45 U/L 11/11/2017 1:[address] [facility] (ALT), S [facility] Bilirubin, Total, S 0.3 <=1.2 mg/dL 11/11/2017 1:01 PM [facility] Specimen Anatomical Collection Method Collection Time Receive d Time (Source) Location / / Volume Laterality Blood (Blood, 11/11/2017 12:18 11/11/2017 Venous) PM CDT 12:40 PM CDT Seng Hartzheim M.D. LAB BLOOD ADD-ON Performing Organization Address City/State/ZIP Code Phon e Number [facility] [address] [place] [address] [facility] (ABNORMAL) CBC with Differential (11/11/2017 12:18 PM CDT) [facility] Method Time Signature Hemoglobin 9.2 (L) 11.6 - 11/11/[address] [facility] 15.0 g/dL 12:45 PM CDT [facility] Hematocrit 29.6 (L) 35.5 - 11/11/[address] [facility] 44.9 % 12:45 PM CDT [facility] Erythrocytes 3.39 (L) 3.92 - 11/11/[address] [facility] 5.13 12:45 PM CDT [facility] x10(12)/[facility] MCV 87.3 78.2 - 11/11/[address] [facility] 97.9 fL 12:45 PM CDT [facility] RBC Distrib Width 15.4 12.2 - 11/11/[address] [facility] 16.1 % 12:45 PM CDT [facility] Platelet Count 374 (H) 157 - 371 11/11/[address] [facility] x10(9)/L 12:[address] [facility] Leukocytes 15.1 (H) 3.4 - 9.6 11/11/[address] [facility] x10(9)/L 12:45 PM CDT [facility] Neutrophils 10.79 (H) 1.56 - 11/11/[address] [facility] 6.45 12:45 PM CDT [facility] x10(9)/[facility] Lymphocytes 3.57 (H) 0.95 - 11/11/[address] [facility] 3.07 12:45 PM CDT [facility] x10(9)/[facility] Monocytes 0.65 0.26 - 11/11/[address] [facility] 0.81 12:45 PM CDT [facility] x10(9)/[facility] Eosinophils 0.03 0.03 - 11/11/[address] [facility] 0.48 12:45 PM CDT [facility] x10(9)/[facility] Basophils 0.05 0.01 - 11/11/[address] [facility] 0.08 12:45 PM CDT [facility] x10(9)/[facility] Specimen Anatomical Collection Method Collection Time Receive d Time (Source) Location / / Volume Laterality Blood (Blood, 11/11/2017 12:18 11/11/2017 Venous) PM CDT 12:40 PM CDT Seng Reyna M.D. LAB BLOOD ADD-ON Performing Organization Address City/State/ZIP Code Phon e Number 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 PCP - General 02/04/17 documented as of this encounter
--- OUTSIDE RECORDS SUMMARY | 2022-08-03 09:42 | XMS_ITS | Encounter Summary ---
:1985 Author Organization [facility] Address [address] [place] [address] Care Team Providers Name Role Phone Blaire Bundy P.A.-C. Primary Care Provider [phone] Reason for Visit Reason Comments Post-op po lap appy 09-08-17 Outpatient (Routine) - Closed Specialty Diagnoses / Procedures Referred By Contact Refer red To Contact General Surgery Diagnoses Appendicitis Acute Par Review Seng Reyna M.D. [facility] Region Procedures GNS POST OP [address] [place] [address] Referral ID Status Reason Start Date Expiration Date Visits Requ ested Visits Authorized [id number] Closed 09/09/2017 03/08/2018 1 1 Encounter Details Date Type Department Care Team Description 09/17/2017 Office Visit Department of General Seng Reyna M. D. Appendectomy Laparoscopic Status Post (Primary Dx); Surgery in [facility] Hermelinda Hansen, Vianney-Marlyn., P.A. [address] [place] [address] Appendicitis Acute [address] [address] Social History Tobacco Use Types [...] Comments Blood Pressure 115/48 09/17/2017 9:04 AM PHARMACY DISTRICT MANAGER Pulse 84 09/17/2017 9:04 AM PHARMACY DISTRICT MANAGER Temperature 36.6 ??C (97.9 ??F) 09/17/2017 9:04 AM PHARMACY DISTRICT MANAGER Respiratory Rate - - Oxygen Saturation - - Inhaled Oxygen Concentration - - Weight - - Height - - Body Mass Index - - documented in this encounter Patient Instructions Patient InstructionsHermelinda Hansen P.A.-C., P.A. - 09/17/2017 9:00 AM PHARMACY DISTRICT MANAGER Images from the original note were not [...] heals ??? Fever above 101.0??F (38.3??C) ?? [phone] [place] [address]. All rights reserved. This information is not intended as a substitute for professional medical care. Always follow your healthcare professional's instructions. MACY DISTRICT MANAGER documented in this encounter Progress Notes Hermelinda [...] from the hospital. She has been taking ejyh-cwr-ltzzlew pain medications as needed since. She is [...] PATHOLOGY SERVICES Patient Name: PUNEET CLAYTON MR#: [id number] Submitting Physician: JAQUAN MONAHAN DO [id number] Specimen #[id number] Performing Lab: [address] [address] Source: Appendix Clinical History/Pre-Op Appendicitis acute [K35.80] Gross Description Labeled appendix consists of a 6.1 cm in length x 1.2 cm in diameter appendix, with attached mesoappendix (2.4 cm). The serosa is gatica-brown with focal areas of white exudate. The mucosa is red-brown hemorrhagic to necrotic. An area of disruption is not grossly identified. Prior Authorization Technician sections are submitted in cassette A1. [...] ongoing postoperative parameters including pain management with [id number] Tylenolor ibuprofen as needed, ongoing incision care, [...] concerns that arise. Hermelinda Hansen P.A.-C., P.A. MACY DISTRICT MANAGER documented in this encounter Plan of Treatment Not on filedocumented as of this encounter Visit Diagnoses Diagnosis Appendectomy Laparoscopic Status Post - Primary Appendicitis Acute documented in this encounter Additional Health Concerns Assessment Noted Time PHQ-9 Depression Total Score: 7 04/07/2017 9:39 AM CDT documented as of this encounter Care Teams Beading Machine Operator Relationship Specialty Start Date End Date Blaire Bundy P.A.-C. PCP - General 02/04/17 04/26/19 documented as of this encounter
--- OUTSIDE RECORDS SUMMARY | 2022-08-03 09:42 | XMS_ITS | Encounter Summary ---
:1985 Author Organization [facility] Address [address] [place] [address] Care Team Providers Name Role Phone Blaire Bundy P.A.-C. 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 T[facility] [phone] Social History Tobacco Use Types Packs/Day Years [...] How often do you attend hoahaoism or adventism More than 4 time s [...] documented as of this encounter Care Teams Community Action Worker Relationship Specialty Start Date End Date Blaire Bundy P.A.-C. PCP - General 02/04/17 04/26/19 documented as of this encounter
--- OUTSIDE RECORDS SUMMARY | 2022-08-03 09:43 | XMS_ITS | Encounter Summary ---
:1985 Author Organization [facility] Address [address] [place] [address] Care Team Providers Name Role Phone Blaire Bundy P.A.-C. Primary Care Provider [phone] Encounter Details Date Type Department Care Team Description 06/18/2017 Abstract Department of Family Medicine, Provider, Historical [facility], in [place], [place] [address] [place] [address] [facility] [phone] Social History Tobacco Use Types Packs/Day Years [...] How often do you attend gnosticist or orthodoxy More than 4 time s [...] documented as of this encounter Care Teams Processing Spec Relationship Specialty Start Date End Date Blaire Bundy P.A.-C. PCP - General 02/04/17 04/26/19 documented as of this encounter
--- OUTSIDE RECORDS SUMMARY | 2022-08-03 09:43 | XMS_ITS | Encounter Summary ---
:1985 Author Organization [facility] Address [address] [place] [address] Care Team Providers Name Role Phone Blaire Bundy P.A.-C. Primary Care Provider [phone] Encounter Details Date Type Department Care Team Description 09/09/2017 Orders Only Department of General Lydia Crowley, Surgery in [address] [address] [place] [address] [facility] [phone] Social History Tobacco Use Types Packs/Day Years [...] How often do you attend yarsani or jain More than 4 time s [...] as of this encounter Care Teams Health Care Manager Relationship Specialty Start Date End Date Blaire Bundy P.A.-C. PCP - General 02/04/17 04/26/19 documented as of this encounter
--- OUTSIDE RECORDS SUMMARY | 2022-08-03 09:43 | XMS_ITS | Encounter Summary ---
:1985 Author Organization [facility] Address [address] [place] [address] Care Team Providers Name Role Phone Catracho Bundy P.A.-C. Primary Care Provider Encounter Details Date Type Department Care Team Description 06/15/2017 Hospital Encounter HX [facility] Leonora Melchor, Maureen TARIQ, C.N.P. [address] [place], [place] [address] (Wo rk) Social History [...] 06/15/2017 10:26 AM CDT Ambulatory Patient Summary [address] [id number] Visit Information Name: COOLEY PUNEET ALVARADO [facility] Number: [id number] Current Date: 06/15/2017 10:26:41 Physicians Attending Provider: LEONORA VILLASEÑOR R.N. [facility] Primary Care Provider: CATRACHO NAZARIO PA-C [...] if you dont have one. Go to [email or web address] and click on Create Your Account. Then, follow the directions to complete the online form. Youll be asked for your [facility] number which you can find at the top of this document. Your Goals/Additional instructions: Source: [facility] POWERCHART Document Id: [id number] Miscellaneous - Leonora Villaseñor R.N., WHNP-BC - 06/15/2017 10:26 AM CDT Ambulatory Discharge Medication List [address] [id number] Visit Information Name: PUNEET COOLEY [facility] Number: [id number] Current Date: 06/15/2017 [...] emergency. Electronically Signed By: LEONORA VILLASEÑOR R.N. [facility] Signed On:15-JUN-2017 10:26:39 Additional Information: Source: [facility] POWERCHART Document Id: [id number] Miscellaneous - Roosevelt Rodriges, L.P.N. - 06/15/2017 10:24 AM CDT Adult Electronics Technician Intake/History Adult Electronics Technician Intake/History Entered On: 06/15/2017 10:27 CDT Performed On: 06/15/2017 10:24 CDT by ROOSEVELT RODRIGES SALES FLOOR MANAGER Intake Chief Complaint : OB check Temperature [...] Given By : Patient Languages : Frisian Is Patient Female and 13-50 no hysterectomy [...] ROOSEVELT RODRIGES LPN 06/15/2017 10:24 CDT Source: [place] Document Id: [id number] CDT!40 documented in this encounter Plan of Treatment Not on filedocumented as of this encounter Visit Diagnoses Not on filedocumented in this encounter Additional Health Concerns Assessment Noted Time PHQ-9 Depression Total Score: 7 04/07/2017 9:39 AM CDT documented as of this encounter Care Teams Casino Cage Supervisor Relationship Specialty Start Date End Date Catracho Bundy P.A.-C. PCP - General 02/04/17 04/26/19 documented as of this encounter
--- OUTSIDE RECORDS SUMMARY | 2022-08-03 09:43 | XMS_ITS | Encounter Summary ---
:1985 Author Organization [facility] [place] [facility] Address [address] [place] [address] Care Team Providers Name Role Phone Blaire Bundy P.A.-C. Primary Care Provider [phone] Encounter Details Date Type Department Care Team Description 08/02/2017 Nurse Triage Department of [facility] Anastasia Sands, Medicine, [facility], R.N. in [address] [place] [address] [place] [address] [phone] Social History Tobacco Use Types Packs/Day Years [...] documented as of this encounter Care Teams Distribution Lead Relationship Specialty Start Date End Date Blaire Bundy P.A.-C. PCP - General 02/04/17 04/26/19 documented as of this encounter
--- OUTSIDE RECORDS SUMMARY | 2022-08-03 09:43 | XMS_ITS | Encounter Summary ---
:1985 Author Organization [facility] [place] [facility] Address [address] [place] [address] Care Team Providers Name Role Phone Catracho Bundy P.A.-C. Primary Care Provider Encounter Details Date Type Department Care Team Description 05/30/2017 Hospital Encounter HX [facility] Rai Landaverde M.D. [address] [place] [address] (Wo rk) Social History Tobacco [...] often do you attend jehovah's witness or advent More than 4 time s [...] Printed materials Teaching Evaluation : Verbalizes understanding SHILEA BERNAL RN - 05/30/2017 16:34 CDT Source: [facility] POWERCHART Document Id: [id number] CDT!19 Shiela Bernal R.N. - 05/30/2017 4:07 PM CDT Hospital Discharge Instructions [address] [id number] Patient Discharge Instructions Name: FORREST PUNEET CHRISTIANO Current Date: 05/30/2017 16:07:19 : 1985 12:[address] [facility] [place] [facility] Number: [id number] Patient Address: [address] [place] [id number] Patient Primary Care Provider: Name: CATRACHO NAZARIO Briana WHITING Discharge Diagnosis: [facility] [place] would like to thank you for allowing [...] Appointments Date Time Location Provider 06/08/2017 09:00 [facility] Jean Paul MONTEMAYOR, Leonora Bustillos Consider Using [...] [email or web address] and click on Create Your Account. Then, follow the directions to complete the online form. Youll be asked for your [facility] [place] [facility] number which you can find at [...] will start right away. You may feel Herndon Ling contractions (false labor). These irregular contractions start to soften and thin the cervix. Many women mistake these contractions for true labor. They may be more noticable towards the end of the day. Feeling like the baby has dropped lower. In preparation for , the baby's head has settled deep into your pelvis. ?? [phone] [facility], [address] [place] [address], [place] [address]. All rights reserved. This information is not [...] felt your baby move all day. ?? [phone] [facility], [address] [place] [address], [place] [address]. All rights reserved. This information is not intended as a substitute for professional medical care. Always follow your healthcare professional's instructions. This document has images extracted. Please consider using [employer] for all your patient education needs. Source: [facility] POWERCHART Document Id: [id number] Shiela Bernal R.N. - 05/30/2017 4:07 PM CDT Hospital Discharge Medication List [address] [id number] Discharge Medication List Name: PUNEET CLAYTON Current Date: 05/30/2017 16:07:18 : 1985 12:[address] [facility] [place] [facility] Number: [id number] Patient Address: [address] [place] [id number] Patient Primary Care Provider: Name: CATRACHO NAZARIO PA-C Discharge Diagnosis: [facility] [place] would like to thank you for allowing [...] Comment: Electronically Signed By: Signed On: Source: [employer] Document Id: [id number] documented in this encounter Medications at Time [...] ASHLEY RN - 05/30/2017 16:28 CDT Source: [facility] [employer] Document Id: [id number] CDT!3 Shiela Bernal R.N. - 05/30/2017 3:45 PM CDT Ongoing Assessment Antepartum Ongoing Assessment Antepartum Entered On: 05/30/2017 16:31 CDT Performed On: 05/30/2017 15:45 CDT by SHIELA BERNAL yoke setter Chief Complaint : decreased movement last few [...] Yes/No : No Nail Bed Color : [place] Capillary Refill : Less than 2 seconds [...] None SHIELA BERNAL RN 05/30/2017 16:29 CDT [place] Eye Opening Response Jenise : Spontaneously Best Verbal Response [place] : Oriented Best Motor Response [place] : Obeys simple commands [place] Score : 15 SHIELA BERNAL RN [...] Integrity : Intact Mucous Membrane Color : [place] Mucous Membrane Description : Moist Skin Color [...] BERNAL RN - 05/30/2017 16:29 CDT Source: [employer] Document Id: [id number] CDT!107 documented in this encounter Miscellaneous Notes Miscellaneous - Conversion, Historical Provider Ser - 05/30/2017 4:15 PM CDT Coding Summary-Paper Based CODING DATE: 05/31/2017 FINAL RW [facility] STATUS: * Discharged to Home [...] ROLDAN Date Saved: 05/31/2017 10:39 am [facility] Document Id: [id number] documented in this encounter Plan of Treatment Not on filedocumented as of this encounter Visit Diagnoses Not on filedocumented in this encounter Additional Health Concerns Assessment Noted Time PHQ-9 Depression Total Score: 7 04/07/2017 9:39 AM CDT documented as of this encounter Care Teams Residential Leasing Manager Relationship Specialty Start Date End Date Catracho Bundy P.A.-C. PCP - General 02/04/17 04/26/19 documented as of this encounter
--- OUTSIDE RECORDS SUMMARY | 2022-08-03 09:43 | XMS_ITS | Encounter Summary ---
:1985 Author Organization [facility] [place] [facility] Address [address] [place] [address] Care Team Providers Name Role Phone Blaire Bundy P.A.-C. Primary Care Provider [phone] Reason for Visit Reason Comments Care Encounter Details Date Type Department Care Team Description 07/29/2017 Office Visit Department of Leonora Reaves, Management C ontraception By Injection (Primary Dx); Obstetrics and FOOT TENDER, C.N.P. Exam (HCC) Gynecology in [address] [address] [place], [place] [phone] [address] (Work) [phone] Social History Tobacco Use Types Packs/Day Years [...] Comments Blood Pressure 132/82 07/29/2017 10:53 AM CURING MACHINE OPERATOR Pulse - - Temperature - - Respiratory Rate - - Oxygen Saturation - - Inhaled Oxygen Concentration - - Weight 145 kg (319 lb 10.7 oz) 07/29/2017 10:53 AM CURING MACHINE OPERATOR Height - - Body Mass Index 58.3 06/23/2017 4:33 PM CDT documented in this encounter Progress Notes Leonora Reaves R.N., WHNP-BC - 07/29/2017 11:00 AM CST SUBJECTIVE CHIEF COMPLAINT / REASON FOR VISIT Carol Cooley, , is status post vaginal at [facility] [place] [facility] in [place]. Antepartum course was complicated by: Obesity. course [...] or hernia Genitalia: external vulva, Bartholin's, urethra, Ankeny's glands and fourchette negative Perineum: intact; well healed Vagina: normal Cervix: normal Bimanual: exam revealed normal mobile uterus, negative adnexa Rectovaginal exam: confirms good sphincter tone Configuration Technician for pelvic exam or qualifying procedure: Lory [...] of the content. Leonora Reaves R.N., SIM- NG MACHINE OPERATOR documented in this encounter Plan [...] mg Right Vastus 150 mg 11:37 AM CURING MACHINE OPERATOR Lateralis 150 mg, intramuscular, Every 12 weeks, First dose on Bryanna 07/29/17 at 1145, For 4 doses documented in this encounter Additional Health Concerns Assessment Noted Time PHQ-9 Depression Total Score: 7 04/07/2017 9:39 AM CDT documented as of this encounter Care Teams Cellar Hand Relationship Specialty Start Date End Date Blaire Bundy P.A.-C. PCP - General 02/04/17 04/26/19 documented as of this encounter
--- OUTSIDE RECORDS SUMMARY | 2022-08-03 09:43 | XMS_ITS | Encounter Summary ---
:1985 Author Organization [facility] Address [address] [place] [address] Care Team Providers Name Role Phone Blaire Bundy P.A.-C. Primary Care Provider [phone] Encounter Details Date Type Department Care Team Description 09/08/2017 Nurse Triage Department of [facility] Todd nikolas Marcos, RBrittaneyNBrittaney [facility], ([place] [address] [place] [address] Social History Tobacco Use Types [...] How often do you attend quaker or buddhist More than 4 time s [...] documented as of this encounter Care Teams X Ray Developing Machine Operator Relationship Specialty Start Date End Date Blaire Bundy P.A.-C. PCP - General 02/04/17 04/26/19 documented as of this encounter
--- OUTSIDE RECORDS SUMMARY | 2022-08-03 09:43 | XMS_ITS | Encounter Summary ---
:1985 Author Organization [facility] [place] [facility] Address [address] [place] [address] Care Team Providers Name Role Phone Blaire Bundy P.A.-C. Primary Care Provider Reason for Visit Auth/Cert Specialty Diagnoses / Procedures Referred By Contact Refer red To Contact Diagnoses Appendicitis Acute Appendicitis Acute Procedures LAPAROSCOPIC APPENDECTOMY Referral ID Status Reason Start Date Expiration Date Visits Requ ested Visits Authorized [id number] 1 1 Encounter Details Date Type Department Care Team Description 09/08/2017 Anesthesia Event [facility] MAIN OR Nancy Smith M.D. [address] [facility] [address] [place] [address] [place], [place] [phone] [address] (Wo rk) Anesthesia Record Procedure Summary [...] h andoff to the receiving staff during [facility] we 1. Identified the patient 2. [...] D, Time: 161 (created BRENDA RIVERO APRN, DIRECTOR OF RETENTION via procedure documentation); Mask Ventilation: Easy mask; [...] 8 by Abdomen; and Antionette Barnes, R.N. [facility] dermabond; FACUNDO ROLL WINDER d, Karena g WND ADH NEONAT 2X3.75 [...] How often do you attend scientologist or congregation More than 4 time s [...] Anesthesia Postprocedure Evaluation - Dimitri Chase, JOSEFA, DIRECTOR OF RETENTION - 09/08/2017 5:50 PM CST Patient: Carol Cooley Procedure Summary Date: 09/08/17 Room / Location: [address] 140[address] / [facility] OR Anesthesia Start: 160 Anesthesia Stop: 1738 [...] Post Op nausea/vomiting: none Hydration status: euvolemic D SYSTEMS ARCHITECT Anesthesia Procedure Notes - Dimitri Chase APRN, [...] Procedure outcome: successful Airway event: no complications D SYSTEMS ARCHITECT Anesthesia Preprocedure Evaluation - Nancy Smith M.D. [...] patient / legal guardian, or through an per diem interpreter; patient evaluated and approved for anesthesia / sedation. The use of blood products not discussed Discussed risk of potential decreased hormonal contraceptive efficacy for up to one week after anesthesia due to medication interactions. D SYSTEMS ARCHITECT documented in this encounter Plan of Treatment Not on filedocumented as of this encounter Procedures Procedure Name Priority Date/Time Associated Comments Diagnosis LDA ANE ENDOTRACHEAL Routine 09/08/2017 4:27 PM R esults for this AIRWAY CLOUD SYSTEMS ARCHITECT procedure are i n the results section. documented in this encounter Results LDA ANE ENDOTRACHEAL AIRWAY (09/08/2017 4:27 PM CLOUD SYSTEMS ARCHITECT) Narrative Dimitri Chase APRN, CRNA - 09/08/19 18 4:27 PM CLOUD SYSTEMS ARCHITECT Dimitri Chase APRN, CRNA ? 09/08/2017 ??4:31 [...] grade 2A ETT location: oral VL device: [employer] CMAC blade size: D - adult Adult [...] Site dexamethasone injection Given 09/08/2017 4:07 PM CLOUD SYSTEMS ARCHITECT 8 mg (for_DECADRON) As needed, Starting on Wed09/08/17 at 1607, Anesthesia Intra-op HYDROmorphone injection (for_DILAUDID) Given 09/08/2017 4:14 PM CLOUD SYSTEMS ARCHITECT 1 mg As needed, moderate pain or score 4-6 of 10, Starting on Wed09/08/17 at 1614, Anesthesia Intra-op ketamine injection (for_KETALAR) Given 09/08/2017 4:06 PM CLOUD SYSTEMS ARCHITECT 50 mg As needed, Starting on Wed09/08/17 at 1606, Anesthesia Intra-op ketorolac injection (for_TORADOL) Given 09/08/2017 5:25 PM CLOUD SYSTEMS ARCHITECT 30 mg As needed, moderate pain or score 4-6 of 10, Starting on Wed09/08/17 at 1725, Anesthesia Intra-op lactated ringers New Bag 09/08/2017 4:36 PM CLOUD SYSTEMS ARCHITECT intravenous, Continuous Infusion: Per Instructions PRN, Starting on Wed09/08/17 at 1636, Anesthesia Intra-op New Bag 09/08/2017 4:06 PM CLOUD SYSTEMS ARCHITECT lidocaine (PF) (cardiac) injection Given 09/08/2017 4:11 PM CLOUD SYSTEMS ARCHITECT 150 mg intravenous, As needed, Starting on Wed09/08/17 at 1611, Anesthesia Intra-op midazolam (PF) injection (for_VERSED) Given 09/08/2017 4:06 PM CLOUD SYSTEMS ARCHITECT 2 mg intravenous, As needed, Starting on Wed09/08/17 at 1606, Anesthesia Intra-op ondansetron (PF) injection (for_ZOFRAN) Given 09/08/2017 5:11 PM CLOUD SYSTEMS ARCHITECT 4 mg intravenous, As needed, nausea, vomiting, Starting on Wed09/08/17 at 1711, Anesthesia Intra-op propofol injection (for_DIPRIVAN) Given 09/08/2017 4:11 PM CLOUD SYSTEMS ARCHITECT 300 mg intravenous, As needed, Starting on Wed09/08/17 at 1611, Anesthesia Intra-op rocuronium injection (for_ZEMURON) Given 09/08/2017 4:07 PM CLOUD SYSTEMS ARCHITECT 80 mg intravenous, As needed, Starting on Wed09/08/17 at 1607, Anesthesia Intra-op sugammadex injection (for_BRIDION) Given 09/08/2017 5:17 PM CLOUD SYSTEMS ARCHITECT 290 mg As needed, Starting on Wed09/08/17 at 1717, Anesthesia Intra-op documented in this encounter Additional Health Concerns Assessment Noted Time PHQ-9 Depression Total Score: 7 04/07/2017 9:39 AM CDT documented as of this encounter Care Teams Foster Care Case Manager Relationship Specialty Start Date End Date Blaire Bundy P.A.-C. PCP - General 02/04/17 04/26/19 documented as of this encounter
--- OUTSIDE RECORDS SUMMARY | 2022-08-03 09:43 | XMS_ITS | Encounter Summary ---
:1985 Author Organization [facility] [place] [facility] Address [address] [place] [address] Care Team Providers Name Role Phone Blaire Bundy P.A.-C. Primary Care Provider [phone] Reason for Visit Reason Comments Communication [facility] hospital follow-up Encounter Details Date Type Department Care Team Description 09/10/2017 Clinical Department of Suellen Beasley on ([facility] Internal R, R.N. hospital follow-up) Medicine in [address] [place] [address], [address] [place] [address] [place] [phone] [address] (Work) [phone] Social History Tobacco Use Types Packs/Day Years [...] to pay for the very basics like [facility] hat hard 07/09/2020 food, housing, medical [...] 8:02 AM CST See previous note, duplicate. NIA TECHNICIAN Telephone Encounter - Suellen Beasley R.N. - 09/10/2017 7:40 AM CST Discharge date 09/09/17 at 1230. Reason for hospitalization Appendicitis acute. Follow up scheduled for 09/20/17. NIA TECHNICIAN documented in this encounter Plan of Treatment Not on filedocumented as of this encounter Visit Diagnoses Not on filedocumented in this encounter Additional Health Concerns Assessment Noted Time PHQ-9 Depression Total Score: 7 04/07/2017 9:39 AM CDT documented as of this encounter Care Teams Layboy Operator Relationship Specialty Start Date End Date Blaire Bundy P.A.-C. PCP - General 02/04/17 04/26/19 documented as of this encounter
--- OUTSIDE RECORDS SUMMARY | 2022-08-03 09:43 | XMS_ITS | Encounter Summary ---
:1985 Author Organization [facility] Address [address] [place] [address] Care Team Providers Name Role Phone Blaire Bundy P.A.-C. Primary Care Provider [phone] Reason for Visit Reason Comments Sore Throat sore throat since Wednesday, no fever, no bodyaches, headaches, dry cough Appointment Request (Routine) - Incomplete Specialty Diagnoses / Procedures Referred By Contact Refer red To Contact Referral ID Status Reason Start Date Expiration Date Visits V isits Requested Authorized [id number] Incomplete 08/02/2017 01/29/2018 1 1 Encounter Details Date Type Department Care Team Description 08/03/2017 Office Visit Department of [facility] Erin Bundy P.A.-C. [address] [place] [address] Sore Throat (Primary Dx); Medicine, Deb Brown, RATTLE LEAK AND SQUEAK REPAIRER, C.N.P. [address] [place] [address] [facility], in [address] [address] Social History Tobacco Use [...] Comments Blood Pressure 139/65 08/03/2017 8:38 AM SPRAY DYER Pulse 79 08/03/2017 8:38 AM SPRAY DYER Temperature 36.3 ??C (97.3 ??F) 08/03/2017 8:38 AM SPRAY DYER Respiratory Rate 16 08/03/2017 8:38 AM SPRAY DYER Oxygen Saturation 98% 08/03/2017 8:38 AM SPRAY DYER Inhaled Oxygen Concentration - - Weight 147 kg (323 lb 10.2 oz) 08/03/2017 8:38 AM SPRAY DYER Height 158 cm (5' 2.21) 08/03/2017 8:38 AM SPRAY DYER Body Mass Index 58.8 08/03/2017 8:38 AM SPRAY DYER documented in this encounter Progress Notes Deb [...] viral illness. She was instructed to use hhto-fkq-ywvthcv pain analgesics and increased fluids for symptom management. We discussed the use of honey as needed for symptom management. She was instructed to contact the clinic with worsening or no improvement in symptoms. All questions were answered. She left in no acute distress. Deb Enamorado C.N.P., R.N. Y DYER documented in this encounter Plan of Treatment Not on filedocumented as of this encounter Procedures Procedure Name Priority Date/Time Associated Diagnosis Comme nts BACTERIAL CULTURE, Routine 08/03/2017 4:12 PM Res ults for this THROAT SPRAY DYER procedure are i n the results section. RAPID STREP A Routine 08/03/2017 9:27 AM Sore Throat Results for this SCREEN SPRAY DYER procedure are i n the results section. documented in this encounter Results Bacterial Culture, Throat (08/03/2017 4:12 PM SPRAY DYER) [facility] Method Time Signature Throat No growth of 08/05/2017 [facility] Culture Streptococcus 6:38 AM SPRAY DYER [facility] pyogenes [facility] Specimen Anatomical Collection Method Collection Time Receive d Time (Source) Location / / Volume Laterality Throat Swab 08/03/2017 4:12 PM 7 4:12 SPRAY DYER PM SPRAY DYER Deb Enamorado APRN, C.N.P. LAB MICROBIOLOGY - GENE RAL ORDERABLES Performing Organization Address City/[facility]/ZIP Code Phon e Number [facility] [address] [place] [address], [place] [address] [facility] Rapid Strep A Screen Throat (08/03/2017 9:27 AM SPRAY DYER) athologist Signature Rapid Strep A Negative Negative 08/03/2017 [facility] Screen 9:52 AM [facility] Specimen Anatomical Collection Method Collection Time Receive d Time (Source) Location / / Volume Laterality Varies (Throat) 08/03/2017 9:27 AM 2016 9:36 SPRAY DYER AM SPRAY DYER Deb Enamorado APRN, C.N.P. LAB MICROBIOLOGY - GENE RAL ORDERABLES Performing Organization Address City/[facility]/ZIP Code Phon e Number [facility]- [address] [place] [phone] [place] [address] LAB documented in this encounter Visit Diagnoses Diagnosis Sore Throat - Primary Cough Unspecified Type documented in this encounter Additional Health Concerns Assessment Noted Time PHQ-9 Depression Total Score: 7 04/07/2017 9:39 AM CDT documented as of this encounter Care Teams Head Mechanic Relationship Specialty Start Date End Date Blaire Bundy P.A.-C. PCP - General 02/04/17 04/26/19 documented as of this encounter
--- OUTSIDE RECORDS SUMMARY | 2022-08-03 09:43 | XMS_ITS | Encounter Summary ---
:1985 Author Organization [facility] Address [address] [place] [address] Care Team Providers Name Role Phone Blaire Bundy P.A.-C. Primary Care Provider [phone] Reason for Visit Reason Onset Date Comments Post Hospital Follow-up 09/09/2017 [place] 09/09/17 Encounter Details Date Type Department Care Team Description 09/09/2017 Clinical Communication Department of [facility] Medicine, Barbara Barrett R.N. Follow-up ([place] [phone] 09/09/17) Clinic, in [address] [address] [facility] [phone] [place], [place] (Work) [address] Social History Tobacco Use [...] How often do you attend alevism or mormon More than 4 time s [...] feedback: Post hospital near miss assessment: none E COORDINATOR Telephone Encounter - Barbara Bang R.N. - 09/09/2017 2:07 PM PRIZE COORDINATOR Discharge date 09/09/17 at 1230. Reason for hospitalization Admission PRINCIPAL DIAGNOSIS Appendicitis Acute. Follow up scheduled for 09/20/17 @ [address] Reyna (surgical f/u). E COORDINATOR documented in this encounter Plan of Treatment Not on filedocumented as of this encounter Visit Diagnoses Not on filedocumented in this encounter Additional Health Concerns Assessment Noted Time PHQ-9 Depression Total Score: 7 04/07/2017 9:39 AM CDT documented as of this encounter Care Teams Manager Materials Management Relationship Specialty Start Date End Date Blaire Bundy P.A.-C. PCP - General 02/04/17 04/26/19 documented as of this encounter
--- OUTSIDE RECORDS SUMMARY | 2022-08-03 09:43 | XMS_ITS | Encounter Summary ---
:1985 Author Organization [facility] Address [address] [place] [address] Care Team Providers Name Role Phone Blaire Bundy P.A.-C. Primary Care Provider Reason for Referral Outpatient (Routine) - Closed Specialty Diagnoses / Procedures Referred By Contact Refer red To Contact General Surgery Diagnoses Appendicitis Acute Par Review Seng Reyna M.D. [facility] Region Procedures GNS POST OP [address] [place] [address] Referral ID Status Reason Start Date Expiration Date Visits Requ ested Visits Authorized [id number] Closed 09/09/2017 03/08/2018 1 1 Scheduling Instructions To see Dr. Monahan 09/15/2016 in [place] . T OPERATOR Reason for Visit Reason Comments Abdominal Pain [...] Expiration Date Visits Requ ested Visits Authorized [id number] 1 1 Encounter Details Date Type Department Care Team Description 09/08/2017 - Emergency [facility], Natalie Car M.D. [address] [place] [phone] Appendicitis Acute 09/09/2017 [facility] Taryn Helm M.D. [address] [place] [address] (Primary Dx) Center, Third Floor Jaquan Monahan D.O. [address] [place] [address] [place] [address] [address] [place] [address] Social History Tobacco Use Types [...] How often do you attend islam or buddhism More than 4 time s [...] Comments Blood Pressure 126/63 09/09/2017 10:22 AM PLANT OPERATOR Pulse 79 09/09/2017 10:22 AM PLANT OPERATOR Temperature 36.7 ??C (98.1 ??F) 09/09/2017 10:22 AM PLANT OPERATOR Respiratory Rate 18 09/09/2017 10:22 AM PLANT OPERATOR Oxygen Saturation 94% 09/09/2017 10:22 AM PLANT OPERATOR Inhaled Oxygen Concentration - - Weight 145 kg (319 lb 10.7 oz) 09/08/2017 2:13 PM PLANT OPERATOR Height 157.5 cm (5' 2) 09/08/2017 10:09 AM PLANT OPERATOR Body Mass Index 58.47 09/08/2017 10:09 AM PLANT OPERATOR documented in this encounter Discharge Summaries Seng Reyna M.D. - 09/09/2017 9:51 AM CST INPATIENT DISCHARGE SUMMARY BRIEF OVERVIEW Discharge Provider: Taryn Ozuna M.D. Primary Care Providers: Blaire Thornton P.A.-C. (General) [address] [place] [phone] Primary Care Provider Primary Care Provider Other Providers: Admission Date: 09/08/2017 Discharge Date: 09/09/2017 PRINCIPAL DIAGNOSIS Appendicitis Acute SECONDARY DIAGNOSES Principal Problem: Appendicitis Acute Resolved Problems: * No resolved hospital problems. * Operative Procedures: Scheduled (Blank), Completed (Comp) or Canceled (Can) Case IDs Date Procedure Surgeon Location Status [id number] 09/08/17 LAPAROSCOPIC APPENDECTOMY Jaquan Monahan D.O. [facility] OR Comp DISCHARGE DISPOSITION Home or Self [...] Your Medications These medications were sent to [facility] - [address] [address] ?? ciprofloxacin 500 mg tablet ?? metroNIDAZOLE [...] ADMISSION ANESTHESIA FOLLOW-UP CONDITION AT DISCHARGE improved T OPERATOR documented in this encounter Discharge Instructions AttachmentsThe following attachments cannot be sent through Care Everywhere.Care Following Your Laparoscopy (Latvian)documented in this encounter Medications at Time [...] /or at baseline Post Op nausea/vomiting: none T OPERATOR documented in this encounter H&P Notes Jaquan [...] or fallopian tube. She gives informed consent. T OPERATOR documented in this encounter Nursing Notes Kiera [...] o-1 Refuses pain medication at this time T OPERATOR documented in this encounter OR Notes Op Note - Jaquan Monahan D.O. - 09/08/2017 4:35 PM CST FULL OP NOTE Procedure(s): LAPAROSCOPIC APPENDECTOMY Surgeon(s) and Role: * Jaquan Monahan D.O. - Primary Radioisotope Technologist: Lior PerezPBrittaneyNBrittaney; Nichole Allen L.P.N. Anesthesia Type: [...] Appendix PATHOLOGY SERVICES Jaquan Monahan D.O. 09/08/2017 1706 Drains Indwelling Urinary Catheter Double-lumen 16 Fr. (Active) Estimated Blood Loss No blood loss documented. Implants * No implants in log * Jaquan Monahan D.O. T OPERATOR Brief Op Note - Jaquan Monahan D.O. [...] implants in log * Jaquan Monahan D.O. T OPERATOR documented in this encounter ED Notes Dimitri [...] admission. He will contact the nursing supervisor grower to determine a plan of when surgery [...] going to talk with the nursing supervisor grower and the operating room about the plan [...] accurate and complete. Dimitri Car M.D. 09/08/172138 T OPERATOR documented in this encounter Plan of Treatment Scheduled Referrals Name Type Priority Associated Diagnoses Order [facility] Surgery Outpatient Referral Routine Appendicitis Acute Expected: Post Op (clinic) 09/15/2017 (Approximate), Expires: 09/09/2020 documented as of this encounter Procedures Procedure Name Priority Date/Time Associated Comments Diagnosis CBC WITH Routine 09/09/2017 7:05 Results for DIFFERENTIAL, B AM PLANT OPERATOR this procedu re are in the results section. INCENTIVE Routine 09/08/2017 6:39 SPIROMETRY - RT/RN PM PLANT OPERATOR INCENTIVE Routine 09/08/2017 6:39 SPIROMETRY - RT/RN PM PLANT OPERATOR INCENTIVE Routine 09/08/2017 6:39 SPIROMETRY - RT/RN PM PLANT OPERATOR INCENTIVE Routine 09/08/2017 6:39 SPIROMETRY - RT/RN PM PLANT OPERATOR INCENTIVE Routine 09/08/2017 6:39 SPIROMETRY - RT/RN PM PLANT OPERATOR INCENTIVE Routine 09/08/2017 6:39 SPIROMETRY - RT/RN PM PLANT OPERATOR INCENTIVE Routine 09/08/2017 6:39 SPIROMETRY - RT/RN PM PLANT OPERATOR INCENTIVE Routine 09/08/2017 6:39 SPIROMETRY - RT/RN PM PLANT OPERATOR INCENTIVE Routine 09/08/2017 6:39 SPIROMETRY - RT/RN PM PLANT OPERATOR INCENTIVE Routine 09/08/2017 6:39 SPIROMETRY - RT/RN PM PLANT OPERATOR INCENTIVE Routine 09/08/2017 6:39 SPIROMETRY - RT/RN PM PLANT OPERATOR ADULT OXYGEN Routine 09/08/2017 5:43 THERAPY PM PLANT OPERATOR PATHOLOGY SERVICES Routine 09/08/2017 5:08 Appendicitis Acute Results for PM PLANT OPERATOR this procedure are in the results section. LAPAROSCOPIC 09/08/2017 4:06 Appendicitis Acute APPENDECTOMY PM PLANT OPERATOR CT ABDOMEN PELVIS RAD - Semiurgent 09/08/2017 11:53 Re sults for WITH IV CONTRAST (Fast; most ED AM PLANT OPERATOR this proc edure patients; some are in the inpatients) results section. IRIS MICROSCOPIC, U STAT 09/08/2017 11:03 Resu lts for AM PLANT OPERATOR this procedure are in the results section. URINALYSIS WITH STAT 09/08/2017 11:03 Results for MICROSCOPIC IF AM PLANT OPERATOR this procedur e INDICATED, U are in the results section. HEPATIC FUNCTION STAT 09/08/2017 10:50 Results for PANEL, S AM PLANT OPERATOR this procedure are in the results section. CBC WITH STAT 09/08/2017 10:50 Results for DIFFERENTIAL, B AM PLANT OPERATOR this procedu re are in the results section. C-REACTIVE PROTEIN STAT 09/08/2017 10:50 Resul ts for (CRP), S/P AM PLANT OPERATOR this procedure are in the results section. HUMAN CHORIONIC STAT 09/08/2017 10:50 Results for GONADOTROPIN (HCG), AM PLANT OPERATOR this pro cedure MARCI, are in the results section. LIPASE, S/P STAT 09/08/2017 10:50 Results for AM PLANT OPERATOR this procedure are in the results section. LACTATE, B/P STAT 09/08/2017 10:50 Results for AM PLANT OPERATOR this procedure are in the results section. BASIC METABOLIC STAT 09/08/2017 10:50 Results for PANEL, S/P AM PLANT OPERATOR this procedure are in the results section. documented in this encounter Results (ABNORMAL) CBC with Differential (09/09/2017 7:05 AM PLANT OPERATOR) [facility] Method Time Signature Hemoglobin 11.1 (L) 11.6 - 09/09/2017 [facility] 15.0 g/dL 7:11 AM [facility] Hematocrit 34.8 (L) 35.5 - 09/09/2017 [facility] 44.9 % 7:11 AM [facility] Erythrocytes 4.18 3.92 - 09/09/2017 [facility] 5.13 7:11 AM PLANT OPERATOR HEALTH x10(12)/L [facility] MCV 83.3 78.2 - 09/09/2017 [facility] 97.9 fL 7:11 AM [facility] RBC Distrib Width 13.6 12.2 - 09/09/2017 [facility] 16.1 % 7:11 AM [facility] Platelet Count 263 157 - 371 09/09/2017 [facility] x10(9)/L 7:11 AM [facility] Leukocytes 11.8 (H) 3.4 - 9.6 09/09/2017 [facility] x10(9)/L 7:11 AM [facility] Neutrophils 10.54 (H) 1.56 - 09/09/2017 [facility] 6.45 7:11 AM [facility] x10(9)/L [facility] Lymphocytes 0.65 (L) 0.95 - 09/09/2017 [facility] 3.07 7:11 AM [facility]ALTH x10(9)/L [facility] Monocytes 0.57 0.26 - 09/09/2017 [facility] 0.81 7:11 AM [facility] x10(9)/L [facility] Eosinophils 0.01 (L) 0.03 - 09/09/2017 [facility] 0.48 7:11 AM [facility] x10(9)/L [facility]- [place] [facility] Basophils 0.01 0.01 - 09/09/2017 [facility] 0.08 7:11 AM [facility] x10(9)/L [facility] Specimen Anatomical Collection Method Collection Time Receive d Time (Source) Location / / Volume Laterality Blood (Blood, 09/09/2017 7:05 AM 09/09/19 7:08 Venous) PLANT OPERATOR AM PLANT OPERATOR Jaquan Monahan D.O. LAB BLOOD ADD-ON Performing Organization Address City/State/ZIP Code Phon e Number [facility] [address] [place] [address] [facility] Pathology Services (09/08/2017 5:08 PM PLANT OPERATOR) Component Value Ref Test Analysis Performed At [facility] Range Method Time Signature PATHOLOGY Patient Name: PUNEET CLAYTON LUZ [facility] MR#: [id number] [facility] Submitting Physician: JAQUAN MONAHAN DO [id number] Specimen #[id number] Performing Lab: ??[facility] ? [address] [place] [id number] Source: Appendix Clinical History/Pre-Op Appendicitis acute [K35.80] Gross Description Labeled appendix consists of a 6.1 cm in length x 1.2 cm in diameter appendix, with attached mesoappendix ( 2.4 cm). ??The serosa is gatica-brown with focal areas of white exudate. ??The muco sa is red-brown hemorrhagic to necrotic. ??An area of disruption is not grossly id entified. ??Glazier Apprentice sections are submitted in cassette A1. KG/ed ?? Diagnosis Appendix, appendectomy: ACUTE APPENDICITIS WITH PERIAPPENDICITIS. Electronically Signed By JANNET HERNÁNDEZ MD - 09/10/2017 ed/09/10/2017 Specimen (Source) Anatomical Collection Method Collection Time Re ceived Time Location / / Volume Laterality Tissue (Appendix) 09/08/2017 5:08 PM PLANT OPERATOR Comment: Acute appendicitis Jaquan Monahan D.O. LAB SURG PATH ORDERABLES Performing Organization Address City/State/ZIP Code Phon e Number [facility] [place] [address] [place] [address] CT Abdomen Pelvis with IV Contrast (09/08/2017 11:53 AM PLANT OPERATOR) Anatomical Region Laterality Modality Abdomen, Pelvis N/A Computed Tomography Specimen (Source) Anatomical Collection Method Collection Time Re ceived Time Location / / Volume Laterality 09/08/2017 12:00 PM PLANT OPERATOR Impressions 09/08/2017 12:07 PM PLANT OPERATOR IMPRESSION: 1. ??Acute uncomplicated appendicitis. 2. ??Hepatic steatosis. 3. ??Prominent follicle right ovary. Narrative 09/08/2017 12:07 PM PLANT OPERATOR EXAM: CT ABDOMEN PELVIS WITH IV CONTRAST [...] (ABNORMAL) Marly Mullen, U (09/08/2017 11:03 AM [facility]) Analysis Performed At Patho logist Time Signature White Blood 11-20 (A) /hpf 09/08/2017 [facility] Cells 11:13 AM [facility] [place] Comment: ----REFERENCE VALUE---- Males: 0-3 Females: 0-10 Unknown: 0-10 Red Blood Cells Occ-2 0 - 2 /hpf 09/08/2017 11:13 AM [facility] Mucus Present /hpf 09/08/2017 11:13 AM [facility] [place] [facility] Squamous Epithelial Occ-3 /hpf 09/08/2017 11:[address] [facility] Bacteria Present (A) None Seen 09/08/2017 11:13 AM [facility] Specimen Anatomical Collection Method Collection Time Receive d Time (Source) Location / / Volume Laterality Urine 09/08/2017 11:03 09/08/2017 AM PLANT OPERATOR 11:05 AM PLANT OPERATOR Dimitri Car M.D. LAB URINE ORDERABLES Performing Organization Address City/State/ZIP Code Phon e Number [facility] [address] [facility] [place] [address] [facility] (ABNORMAL) Urinalysis with Microscopic if Indicated (09/08/2017 11:03 AM PLANT OPERATOR) Analysis Performed At Patho logist Time Signature Source Midstream 09/08/2017 [facility] 11:13 AM [facility] [place] [facility] Clarity Slightly Clear 09/08/2017 [facility] Cloudy (A) 11:13 AM [facility] [place] [facility] Color Yellow 09/08/2017 [facility] 11:13 AM [facility] [place] [facility] Comment: ----REFERENCE VALUE---- Colorless Yellow Philomena Blood Negative Negative 09/08/2017 11:13 AM [facility] [place] [facility] Nitrite Positive (A) Negative 09/08/2017 11:13 AM [facility] [place] [facility] Leukocyte Esterase Moderate (A) Negative 09/08/2017 11:1 3 AM [facility] Protein, U Trace mg/dL 09/08/2017 11:[address] [facility] Comment: ----REFERENCE VALUE---- Negative Trace Glucose Negative Negative mg/dL 09/08/2017 11:13 AM [facility] Ketone Negative Negative mg/dL 09/08/2017 11:13 AM [facility] Bilirubin Negative Negative 09/08/2017 11:13 AM [facility] [place] [facility] pH 6.0 5.0 - 8.0 09/08/2017 11:13 AM [facility] Specific [place] 1.015 1.001 - 1.035 09/08/2017 11:13 AM [facility] Urobilinogen 0.2 0.2 - 1.0 09/08/2017 11:13 AM [facility] Specimen Anatomical Collection Method Collection Time Receive d Time (Source) Location / / Volume Laterality Urine (Urine, 09/08/2017 11:03 09/08/2017 Clean Catch) AM PLANT OPERATOR 11:05 AM PLANT OPERATOR Dimitri Car M.D. LAB URINE ORDERABLES Performing Organization Address City/State/ZIP Code Phon e Number [address] [place] [address] [place] [facility] (ABNORMAL) CRP (C-Reactive Protein) (09/08/2017 10:50 AM PLANT OPERATOR) Analysis Performed At Patho logist Time Signature C-Reactive 115.8 (H) <=8.0 mg/L 09/08/2017 [facility] Protein (CRP), 11:12 AM [facility] Specimen Anatomical Collection Method Collection Time Receive d Time (Source) Location / / Volume Laterality Blood (Blood, 09/08/2017 10:50 09/08/2017 Venous) AM PLANT OPERATOR 10:52 AM PLANT OPERATOR Dimitri Car M.D. LAB BLOOD ADD-ON Performing Organization Address City/State/ZIP Code Phon e Number [address] [address] [place] [facility] hCG (Human Chorionic Gonadotropin), Quantitative, (09/08/2017 10:50 AM PLANT OPERATOR) P athologist Signature HCG, <0.5 IU/L 09/08/2017 [facility] Quantitative, 11:36 AM [facility] [place] [facility] Comment: Biotin has been identified by [...] Blood (Blood, 09/08/2017 10:50 09/08/2017 Venous) AM PLANT OPERATOR 10:52 AM PLANT OPERATOR Dimitri Car M.D. LAB BLOOD ADD-ON Performing Organization Address City/State/ZIP Code Phon e Number [facility] [place] [address] [facility] Lipase (09/08/2017 10:50 AM PLANT OPERATOR) P athologist Signature Lipase, P 22 13 - 60 U/L 09/08/2017 [facility] 11:13 AM [facility] Specimen Anatomical Collection Method Collection Time Receive d Time (Source) Location / / Volume Laterality Blood (Blood, 09/08/2017 10:50 09/08/2017 Venous) AM PLANT OPERATOR 10:52 AM PLANT OPERATOR Dimitri Car M.D. LAB BLOOD ADD-ON Performing Organization Address City/[facility]/ZIP Code Phon e Number [facility] [place] [address] [facility] Lactate (09/08/2017 10:50 AM PLANT OPERATOR) P athologist Signature Lactate, P 0.7 0.6 - 2.3 09/08/2017 [facility] mmol/L 11:11 AM [facility] Specimen Anatomical Collection Method Collection Time Receive d Time (Source) Location / / Volume Laterality Blood (Blood, 09/08/2017 10:50 09/08/2017 Venous) AM PLANT OPERATOR 10:52 AM PLANT OPERATOR Dimitri Car M.D. LAB BLOOD NON ADD-ON Performing Organization Address City/State/ZIP Code Phon e Number [facility] [place] [address] [facility] (ABNORMAL) Hepatic Function Panel (09/08/2017 10:50 AM PLANT OPERATOR) Patholo gist Method Time Signature Bilirubin, Total, S 1.1 <=1.2 09/08/2017 [facility] mg/dL 11:12 AM [facility] Bilirubin, Direct, S 0.2 0.0 - 0.3 09/08/2017 [facility] mg/dL 11:12 AM [facility] Aspartate 32 8 - 43 09/08/2017 [facility] Aminotransferase U/L 11:12 AM [facility] Alanine 83 (H) 7 - 45 09/08/2017 [facility] Aminotransferase U/L 11:12 AM [facility] Alkaline 101 (H) 37 - 98 09/08/2017 [facility] Phosphatase, S U/L 11:12 AM [facility] Albumin, S 3.9 3.5 - 5.0 09/08/2017 [facility] g/dL 11:12 AM [facility] Protein, Total, S 6.9 6.3 - 7.9 09/08/2017 [facility] g/dL 11:12 AM [facility] Specimen Anatomical Collection Method Collection Time Receive d Time (Source) Location / / Volume Laterality Blood (Blood, 09/08/2017 10:50 09/08/2017 Venous) AM PLANT OPERATOR 10:52 AM PLANT OPERATOR Dimitri Car M.D. LAB BLOOD ADD-ON Performing Organization Address City/State/ZIP Code Phon e Number [facility] [address] [place] [address] [place] [facility] BMP (Basic Metabolic Panel) (09/08/2017 10:50 AM PLANT OPERATOR) P athologist Signature Potassium, P 4.2 3.6 - 5.2 09/08/2017 [facility] mmol/L 11:13 AM [facility] Sodium, P 135 135 - 145 09/08/2017 [facility] mmol/L 11:13 AM [facility] Chloride, P 99 98 - 107 09/08/2017 [facility] mmol/L 11:13 AM [facility] Bicarbonate, P 22 22 - 29 09/08/2017 [facility] mmol/L 11:13 AM [facility] Anion Gap, P 14 7 - 15 09/08/2017 [facility] 11:13 AM [facility] BUN (Blood Urea 7 6 - 21 09/08/2017 [facility] Nitrogen), P mg/dL 11:13 AM [facility] Creatinine 0.62 0.59 - 09/08/2017 [facility] 1.04 mg/dL 11:13 AM [facility] eGFR-Black/Afri >90 >=60 09/08/2017 [facility] can Chilean mL/min/BSA 11:13 AM [facility] LAB Comment: ----ADDITIONAL INFORMATION---- Estimated GFR calculated using the 2009 CKD_EPI creatinine equation. eGFR Non-Black/ >90 >=60 mL/min/BSA 09/08/2017 11:13 AM [facility] Chilean [facility] Comment: ----ADDITIONAL INFORMATION---- Estimated GFR calculated using the 2009 CKD_EPI creatinine equation. Calcium, Total, P 9.1 8.9 - 10.1 mg/dL 09/08/2017 1 1:[address] [facility] Glucose, P 104 70 - 140 mg/dL 09/08/2017 11:[address] [facility] Specimen Anatomical Collection Method Collection Time Receive d Time (Source) Location / / Volume Laterality Blood (Blood, 09/08/2017 10:50 09/08/2017 Venous) AM PLANT OPERATOR 10:52 AM [facility] Dimitri Car M.D. LAB BLOOD ADD-ON Performing Organization Address City/State/ZIP Code Phon e Number [facility] [address] [place] [address] [place] [facility] (ABNORMAL) CBC with Differential (09/08/2017 10:50 AM [facility]) [facility] Method Time Signature Hemoglobin 12.3 11.6 - 09/08/2017 [facility] 15.0 g/dL 10:56 AM [facility] Hematocrit 37.8 35.5 - 09/08/2017 [facility] 44.9 % 10:56 AM [facility] Erythrocytes 4.60 3.92 - 09/08/2017 [facility] 5.13 10:56 AM [facility] HEALTH x10(12)/L [facility] MCV 82.2 78.2 - 09/08/2017 [facility] 97.9 fL 10:56 AM [facility] RBC Distrib Width 13.9 12.2 - 09/08/2017 [facility] 16.1 % 10:56 AM [facility] Platelet Count 293 157 - 371 09/08/2017 [facility] x10(9)/L 10:56 AM [facility] Leukocytes 15.8 (H) 3.4 - 9.6 09/08/2017 [facility] x10(9)/L 10:56 AM [facility] Neutrophils 13.48 (H) 1.56 - 09/08/2017 [facility] 6.45 10:56 AM [facility] x10(9)/L [facility] Lymphocytes 1.35 0.95 - 09/08/2017 [facility] 3.07 10:56 AM [facility] x10(9)/L [facility] Monocytes 0.87 (H) 0.26 - 09/08/2017 [facility] 0.81 10:56 AM [facility] x10(9)/L [facility] Eosinophils 0.04 0.03 - 09/08/2017 [facility] 0.48 10:56 AM [facility] x10(9)/L [facility] Basophils 0.03 0.01 - 09/08/2017 [facility] 0.08 10:56 AM [facility] x10(9)/L [facility] Specimen Anatomical Collection Method Collection Time Receive d Time (Source) Location / / Volume Laterality Blood (Blood, 09/08/2017 10:50 09/08/2017 Venous) AM PLANT OPERATOR 10:52 AM PLANT OPERATOR Dimitri Car M.D. LAB BLOOD ADD-ON Performing Organization Address City/State/ZIP Code Phon e Number [facility] [address] [place] [address] [place] [facility] documented in this encounter Visit Diagnoses Diagnosis Appendicitis Acute - Primary Appendicitis Acute documented in this encounter Administered Medications Inactive Administered Medications - up to 3 most recent administrations Medication Order MAR Action Action Date Dose Rate Site ciprofloxacin in D5W IVPB New Bag 09/08/2017 12:29 PM 400 mg 2 00 mL/hr Right Hand 400 mg (for_CIPRO) PLANT OPERATOR 400 mg, intravenous, at 200 mL/hr, Administer over 60 Minutes, Once, On Wed09/08/17 at 1216, For 1 dose, premix bag, Drug Monitoring Program: Pharmacist to adjust medication order based on comorbities and indication., Indications: Appendicitis ciprofloxacin in D5W IVPB New Bag 09/09/2017 12:23 AM 400 mg 2 00 mL/hr Right Hand 400 mg (for_CIPRO) PLANT OPERATOR 400 mg, intravenous, at 200 mL/hr, Administer over 60 Minutes, Once, On Bryanna 09/09/17 at 0030, For 1 dose, Start within 12 hours of last dose. premix bag, Drug Monitoring Program: Pharmacist to adjust medication order based on comorbities and indication., Indications: Prophylaxis, surgical heparin (porcine) 5,000 Given 09/08/2017 2:43 PM PLANT OPERATOR 5,000 Units Abdominal Tissue unit/0.5 mL injection - ADS Override Pull Starting on Wed09/08/17 at 1426, For 1 dose, Created by cabinet override heparin (porcine) Given 09/09/2017 9:14 AM PLANT OPERATOR 7,500 Units Left Lower Abdomen injection 7,500 Units 7,500 Units, subcutaneous, 3 times daily, First dose on Bryanna 09/09/17 at 0145 Given 09/09/2017 1:48 AM PLANT OPERATOR 7,500 Units Right Lower Abdomen HYDROmorphone injection 0.5 mg (for_DILA UDID) Given 09/08/2017 2:40 PM PLANT OPERATOR 0.5 mg 0.5 mg, intravenous, Every 1 hour PRN, moderate pain or score 4-6 of 10, Starting on Wed09/08/17 at 1253 iohexol 350 mg iodine/mL solution Given 09/08/2017 11:54 AM PLANT OPERATOR 171 mL Right Hand 171 mL (for_OMNIPAQUE) 171 mL, intravenous, Once in imaging, contrast, Starting on Wed09/08/17 at 1059, For 1 dose ketorolac injection 30 mg Given 09/08/2017 10:57 AM PLANT OPERATOR 30 mg Right Hand (for_TORADOL) 30 mg, intravenous, Once, On Wed09/08/17 at 1040, For 1 dose, Adult IV push rate: Over 15 seconds. Peds IV push rate: Over 1 minute. 60 mg dose only for IM, not recommended for IV., Drug Monitoring Program: Pharmacist to adjust medication order based on comorbities and indication. lactated ringers New Bag 09/08/2017 2:50 PM PLANT OPERATOR 20 mL/hr 20 mL/hr 20 mL/hr, intravenous, Continuous, Starting on Wed09/08/17 at 1430, Pre-Op lactated ringers Rate/Dose Verify 09/08/2017 10:00 PM PL[employer]ATOR 75 mL/hr 75 mL/hr 75 mL/hr, intravenous, Continuous, Starting on Wed09/08/17 at 2000 New Bag 09/08/2017 7:55 PM PLANT OPERATOR 75 mL/hr 75 mL/hr metroNIDAZOLE in NaCl (iso-osm) New Bag 09/08/2017 1:39 PM PLANT OPER[employer] 500 mg 200 mL/hr IVPB 500 mg (for_FLAGYL) 500 mg, intravenous, at 200 mL/hr, Administer over 30 Minutes, Once, On Wed09/08/17 at 1210, For 1 dose, Indications: Appendicitis metroNIDAZOLE in NaCl (iso-osm) New Bag 09/09/2017 5:36 AM PLANT OPERATOR 500 mg 200 mL/hr IVPB 500 mg (for_FLAGYL) 500 mg, intravenous, at 200 mL/hr, Administer over 30 Minutes, Every 8 hours, First dose on Wed09/08/17 at 2145, For 2 doses, Start within 8 hours of last dose., Indications: Prophylaxis, surgical New Bag 09/08/2017 9:25 PM PLANT [employer] 500 mg 200 mL/hr morphine injection 4 mg Given 09/08/2017 10:57 AM PLANT OPERATOR 4 mg 4 mg, intravenous, Every 20 min PRN, moderate pain or score 4-6 of 10, severe pain or score 7-10 of 10, Starting on Wed09/08/17 at 1038, For 3 doses NaCl 0.9 % bolus 1,000 New Bag 09/08/2017 10:58 AM 1,000 mL 2000 mL/hr Right Hand mL [employer] 1,000 mL, intravenous, at 2,000 mL/hr, Administer over 0.5 Hours, Once, On Wed09/08/17 at 1040, For 1 dose NaCl 0.9% infusion New Bag 09/08/2017 11:27 AM 1,000 mL/hr 1000 mL/hr Right [place] nd 1,000 mL/hr, [employer] intravenous, Continuous, Starting on Wed09/08/17 at 1040, For Hydration ondansetron (PF) injection 4 mg (for_ZOF RAN) Given 09/08/2017 2:51 PM PLANT OPERATOR 4 mg 4 mg, intravenous, Every 20 min PRN, nausea, vomiting, Starting on Wed09/08/17 at 1038, For 2 doses Given 09/08/2017 10:57 AM PLANT OPERATOR 4 mg ondansetron (PF) injection 4 mg (for_ZOF RAN) 4 mg, intravenous, Every 6 hours PRN, na usea, vomiting, Starting on Wed09/08/17 at 1254 oxyCODONE IR tablet 5 mg (for_ROXICODONE ) Given 09/09/2017 5:45 AM PLANT OPERATOR 5 mg 5 mg, oral, Every 4 hours PRN, mild pain or score 1-3 of 10, Starting on Wed09/08/17 at 1839 Given 09/09/2017 12:40 AM PLANT OPERATOR 5 mg sodium chloride 0.9 % injection 10 mL 10 mL, intravenous, As needed, line care, Starting on Wed09/08/17 at 1037, Peripheral Intravenous Catheter and Rapid Infusion Cat heter, prior to blood sampling, post blood transfusion or post blood samplin g sodium chloride 0.9 % injection 10 Given 09/08/2017 11:55 AM PLANT OPERATOR 10 mL Right Hand mL 10 mL, [...] % injection 80 Given 09/08/2017 11:09 AM PLANT OPERATOR 80 mL Right Hand mL 80 mL, intravenous, Once, On Wed09/08/17 at 1109, For 1 dose documented in this encounter Active and Recently Administered Medications Times are shown in [employer] OPER[employer]. Scheduled Medication Order 09/07/2017 09/08/2017 09/09/2017 ciprofloxacin [...] Lundberg R.N. - Comment: [facility] not to give had difficulity [...] - Reason: Patient not available)1811 ([facility] Unhold - Provider: Transfer Provider, [...] Pr ovider: Keiry Perales R.N.)1408 ([facility] Hold - Provider: Transfer Provider, Automatic - Reason: Patient not available)181 ([facility] Unhold - Provider: Transfer Provider, [...] - Provider: Keiry Perales R.N.)1408 ([facility] Hold - Provider: Transfer Provider, Automatic - Reason: Patient not available)1451 (Given - Provider: Zelda Vilchis R.N.)181 ([facility] Unhold - Provider: Transfer Provider, Automatic) 4 mg, intravenous, Every 20 min PRN, [place], vomiting, Starting on Wed09/08/17 at 1038, For 2 doses ondansetron (PF) injection 4 mg (for_ZOFRAN) 1408 ([facility] Hold - Provider: Transfer Provider, Automatic - Reason: Patient not available)1448 (Dose Auto Held)181 ([facility] Unhold - Provider: Transfer Provider, [...] documented as of this encounter Care Teams Payer Specialist Relationship Specialty Start Date End Date Blaire Bundy P.A.-C. PCP - General 02/04/17 04/26/19 documented as of this encounter
--- OUTSIDE RECORDS SUMMARY | 2022-08-03 09:43 | XMS_ITS | Encounter Summary ---
:1985 Author Organization [facility] Address [address] [place] [address] Care Team Providers Name Role Phone Blaire [...] Expiration Date Visits Requ ested Visits Authorized [id number] 1 1 Encounter Details Date Type Department Care Team Description 09/08/2017 Surgery [facility] MAIN OR Jaquan Monahan, LAPAROSCOPIC [address] D.OBrittaney APPENDECTOMY NEHEMIAH GRANT [phone] [address] [facility] [phone] NEHEMIAH Nix [phone] (Wo rk) Social History [...] How often do you attend cheondoism or restorationist More than 4 time s [...] Comments Blood Pressure 143/71 09/08/2017 2:13 PM HOP PICKER Pulse 116 09/08/2017 2:13 PM HOP PICKER Temperature 36.9 ??C (98.4 ??F) 09/08/2017 2:13 PM HOP PICKER Respiratory Rate 16 09/08/2017 2:13 PM HOP PICKER Oxygen Saturation 96% 09/08/2017 2:13 PM HOP PICKER Inhaled Oxygen Concentration - - Weight 145 kg (319 lb 10.7 oz) 09/08/2017 2:13 PM HOP PICKER Height 157.5 cm (5' 2) 09/08/2017 10:09 AM HOP PICKER Body Mass Index 58.47 09/08/2017 10:09 AM HOP PICKER documented in this encounter Discharge Summaries Seng Reyna M.D. - 09/09/2017 9:51 AM CST INPATIENT DISCHARGE SUMMARY BRIEF OVERVIEW Discharge Provider: Taryn Ozuna M.D. Primary Care Providers: Blaire Thornton P.A.-C. (General) [address] [place] [phone] Primary Care Provider Primary Care Provider Other Providers: Admission Date: 09/08/2017 Discharge Date: 09/09/2017 PRINCIPAL DIAGNOSIS Appendicitis Acute SECONDARY DIAGNOSES Principal Problem: Appendicitis Acute Resolved Problems: * No resolved hospital problems. * Operative Procedures: Scheduled (Blank), Completed (Comp) or Canceled (Can) Case IDs Date Procedure Surgeon Location Status [id number] 09/08/17 LAPAROSCOPIC APPENDECTOMY Jaquan Monahan D.O. [facility] OR Comp DISCHARGE DISPOSITION Home or Self Care [1] ACTIVE ISSUES REQUIRING FOLLOW UP Surgical Pathology OUTPATIENT FOLLOW UP No future appointments. TEST RESULTS PENDING AT DISCHARGE Pending Labs Order Current Status Pathology Services Collected (09/08/17 9425) DISCHARGE MEDICATIONS Your medication list START taking [...] Your Medications These medications were sent to [facility] [address] [address] ?? ciprofloxacin 500 mg tablet ?? metroNIDAZOLE [...] ADMISSION ANESTHESIA FOLLOW-UP CONDITION AT DISCHARGE improved PICKER documented in this encounter Discharge Instructions AttachmentsThe following attachments cannot be sent through Care Everywhere.Care Following Your Laparoscopy (Moroccan)documented in this encounter Medications at Time of [...] /or at baseline Post Op nausea/vomiting: none PICKER documented in this encounter H&P Notes Jaquan [...] or fallopian tube. She gives informed consent. PICKER documented in this encounter Nursing Notes Kiera [...] mucous membranes remain intact Adequate for Discharge PICKER Suni Perales R.N. - 09/09/2017 2:12 AM [...] this is a recent diagnosis for her. PICKER Charline Lundberg R.N. - 09/08/2017 9:42 PM [...] o-1 Refuses pain medication at this time PICKER documented in this encounter OR Notes Op Note - Jaquan Monahan D.O. - 09/08/2017 4:35 PM CST FULL OP NOTE Procedure(s): LAPAROSCOPIC APPENDECTOMY Surgeon(s) and Role: * Jaquan Monahan D.O. - Primary Natural Resource Manager: Mandi Santoyo L.P.N.; Nichole Allen L.P.N. [...] implants in log * Jaquan Monahan D.O. PICKER Brief Op Note - Jaquan Monahan D.O. [...] implants in log * Jaquan Monahan D.O. PICKER documented in this encounter ED Notes Dimitri [...] for admission. He will contact the nursing color making supervisor to determine a plan of when [...] was going to talk with the nursing color making supervisor and the operating room about the [...] and it is both accurate and complete. Diimtri Car M.D. 09/08/172138 PICKER documented in this encounter Plan of Treatment Scheduled Referrals Name Type Priority Associated Diagnoses Order S [facility] General Surgery Outpatient Referral Routine Appendicitis Acute Expected: Post Op (clinic) 09/15/2017 (Approximate), Expires: 09/09/2020 documented as of this encounter Procedures Procedure Name Priority Date/Time Associated Comments Diagnosis CBC WITH Routine 09/09/2017 7:05 Results for DIFFERENTIAL, B AM HOP PICKER this procedu re are in the results section. INCENTIVE Routine 09/08/2017 6:39 SPIROMETRY - RT/RN PM HOP PICKER INCENTIVE Routine 09/08/2017 6:39 SPIROMETRY - RT/RN PM HOP PICKER INCENTIVE Routine 09/08/2017 6:39 SPIROMETRY - RT/RN PM HOP PICKER INCENTIVE Routine 09/08/2017 6:39 SPIROMETRY - RT/RN PM HOP PICKER INCENTIVE Routine 09/08/2017 6:39 SPIROMETRY - RT/RN PM HOP PICKER INCENTIVE Routine 09/08/2017 6:39 SPIROMETRY - RT/RN PM HOP PICKER INCENTIVE Routine 09/08/2017 6:39 SPIROMETRY - RT/RN PM HOP PICKER INCENTIVE Routine 09/08/2017 6:39 SPIROMETRY - RT/RN PM HOP PICKER INCENTIVE Routine 09/08/2017 6:39 SPIROMETRY - RT/RN PM HOP PICKER INCENTIVE Routine 09/08/2017 6:39 SPIROMETRY - RT/RN PM HOP PICKER INCENTIVE Routine 09/08/2017 6:39 SPIROMETRY - RT/RN PM HOP PICKER ADULT OXYGEN Routine 09/08/2017 5:43 THERAPY PM HOP PICKER PATHOLOGY SERVICES Routine 09/08/2017 5:08 Appendicitis Acute Results for PM HOP PICKER this procedure are in the results section. LAPAROSCOPIC 09/08/2017 4:06 Appendicitis Acute APPENDECTOMY PM HOP PICKER CT ABDOMEN PELVIS RAD - Semiurgent 09/08/2017 11:53 Re sults for WITH IV CONTRAST (Fast; most ED AM HOP PICKER this proc edure patients; some are in the inpatients) results section. IRIS MICROSCOPIC, U STAT 09/08/2017 11:03 Resu lts for AM HOP PICKER this procedure are in the results section. URINALYSIS WITH STAT 09/08/2017 11:03 Results for MICROSCOPIC IF AM HOP PICKER this procedur e INDICATED, U are in the results section. HEPATIC FUNCTION STAT 09/08/2017 10:50 Results for PANEL, S AM HOP PICKER this procedure are in the results section. CBC WITH STAT 09/08/2017 10:50 Results for DIFFERENTIAL, B AM HOP PICKER this procedu re are in the results section. C-REACTIVE PROTEIN STAT 09/08/2017 10:50 Resul ts for (CRP), S/P AM HOP PICKER this procedure are in the results section. HUMAN CHORIONIC STAT 09/08/2017 10:50 Results for GONADOTROPIN (HCG), AM HOP PICKER this pro cedure MARCI, are in the results section. LIPASE, S/P STAT 09/08/2017 10:50 Results for AM HOP PICKER this procedure are in the results section. LACTATE, B/P STAT 09/08/2017 10:50 Results for AM HOP PICKER this procedure are in the results section. BASIC METABOLIC STAT 09/08/2017 10:50 Results for PANEL, S/P AM HOP PICKER this procedure are in the results section. documented in this encounter Results (ABNORMAL) CBC with Differential (09/09/2017 7:05 AM HOP PICKER) [facility] Method Time Signature Hemoglobin 11.1 (L) 11.6 - 09/09/2017 [facility] 15.0 g/dL 7:11 AM [facility] [facility]- [facility] Hematocrit 34.8 (L) 35.5 - 09/09/2017 [facility] 44.9 % 7:11 AM [employer] [facility] Erythrocytes 4.18 3.92 - 09/09/2017 [facility] 5.13 7:11 AM [facility] HEALTH x10(12)/L SYSTEM- [facility] MCV 83.3 78.2 - 09/09/2017 [facility] 97.9 fL 7:11 AM [facility] [facility] [employer] [facility] RBC Distrib Width 13.6 12.2 - 09/09/2017 [facility] 16.1 % 7:11 AM [employer] [facility] Platelet Count 263 157 - 371 09/09/2017 [facility] x10(9)/L 7:11 AM [employer] [facility] Leukocytes 11.8 (H) 3.4 - 9.6 09/09/2017 [facility] x10(9)/L 7:11 AM [employer] [facility] Neutrophils 10.54 (H) 1.56 - 09/09/2017 [facility] 6.45 7:11 AM [facility] HEALTH x10(9)/L SYSTEM- [facility] Lymphocytes 0.65 (L) 0.95 - 09/09/2017 [facility] 3.07 7:11 AM [facility] HEALTH x10(9)/L SYSTEM- [facility] Monocytes 0.57 0.26 - 09/09/2017 [facility] 0.81 7:11 AM [facility] HEALTH x10(9)/L SYSTEM- [facility] Eosinophils 0.01 (L) 0.03 - 09/09/2017 [facility] 0.48 7:11 AM [facility] HEALTH x10(9)/L SYSTEM- [facility] Basophils 0.01 0.01 - 09/09/2017 [facility] 0.08 7:11 AM [facility] HEALTH x10(9)/L SYSTEM- [facility] Specimen Anatomical Collection Method Collection Time Receive d Time (Source) Location / / Volume Laterality Blood (Blood, 09/09/2017 7:05 AM 09/09/19 7:08 Venous) HOP PICKER AM HOP PICKER Jaquan Monahan D.O. LAB BLOOD ADD-ON Performing Organization Address City/[facility] Phon e Number [facility] [address] [place] [address] [facility] Pathology Services (09/08/2017 5:08 PM HOP PICKER) Component Value Ref Test Analysis Performed At [facility] Range Method Time Signature PATHOLOGY Patient Name: [facility] SERVICES MR#: [id number] [facility] Submitting Physician: JAQUAN MONAHAN DO [id number] Specimen #[id number] Performing Lab: ??[facility] ? [address] [place] [id number] Source: Appendix Clinical History/Pre-Op Appendicitis acute [K35.80] Gross Description Labeled appendix consists of a 6.1 cm in length x 1.2 cm in diameter appendix, with attached mesoappendix ( 2.4 cm). ??The serosa is gatica-brown with focal areas of white exudate. ??The muco sa is red-brown hemorrhagic to necrotic. ??An area of disruption is not grossly id entified. ??Claim Investigator sections are submitted in cassette A1. KG/ed ?? Diagnosis Appendix, appendectomy: ACUTE APPENDICITIS WITH PERIAPPENDICITIS. Electronically Signed By JANNET HERNÁNDEZ MD - 09/10/2017 ed/09/10/2017 Specimen (Source) Anatomical Collection Method Collection Time Re ceived Time Location / / Volume Laterality Tissue (Appendix) 09/08/2017 5:08 PM HOP PICKER Comment: Acute appendicitis Jaquan Monahan D.O. LAB SURG PATH ORDERABLES Performing Organization Address City/[facility]/ZIP Code Phon e Number [address] [address] [address] Abdomen Pelvis with IV Contrast (09/08/2017 11:53 AM HOP PICKER) Anatomical Region Laterality Modality Abdomen, Pelvis N/A Computed Tomography Specimen (Source) Anatomical Collection Method Collection Time Re ceived Time Location / / Volume Laterality 09/08/2017 12:00 PM HOP PICKER Impressions 09/08/2017 12:07 PM HOP PICKER IMPRESSION: 1. ??Acute uncomplicated appendicitis. 2. ??Hepatic steatosis. 3. ??Prominent follicle right ovary. Narrative 09/08/2017 12:07 PM HOP PICKER EXAM: CT ABDOMEN PELVIS WITH IV CONTRAST [...] (ABNORMAL) Iris Microscopic, U (09/08/2017 11:03 AM HOP PICKER) Analysis Performed At Patho logist Time Signature White Blood 11-20 (A) /hpf 09/08/2017 [facility] Cells 11:13 AM [facility] LAB Comment: ----REFERENCE VALUE---- Males: 0-3 Females: 0-10 Unknown: 0-10 Red Blood Cells Occ-2 0 - 2 /hpf 09/08/2017 11:13 AM [facility] Mucus Present /hpf 09/08/2017 11:13 AM [facility] Squamous Epithelial Occ-3 /hpf 09/08/2017 11:13 AM [facility] Bacteria Present (A) None Seen 09/08/2017 11:13 AM [facility] Specimen Anatomical Collection Method Collection Time Receive d Time (Source) Location / / Volume Laterality Urine 09/08/2017 11:03 09/08/2017 AM HOP PICKER 11:05 AM HOP PICKER Dimitri Car M.D. LAB URINE ORDERABLES Performing Organization Address City/State/ZIP Code Phon e Number [facility] [address] [place] [address] [facility] (ABNORMAL) Urinalysis with Microscopic if Indicated (09/08/2017 11:03 AM HOP PICKER) Analysis Performed At Patho logist Time Signature Source Midstream 09/08/2017 [facility] 11:13 AM [facility] Clarity Slightly Clear 09/08/2017 [facility] Cloudy (A) 11:13 AM [facility] Color Yellow 09/08/2017 [facility] 11:13 AM [facility] Comment: ----REFERENCE VALUE---- Colorless Yellow [place]omen[place] Blood Negative Negative 09/08/2017 11:13 AM [facility] Nitrite Positive (A) Negative 09/08/2017 11:13 AM [facility] Leukocyte Esterase Moderate (A) Negative 09/08/2017 11:1 3 AM [facility] Protein, U Trace mg/dL 09/08/2017 11:13 AM [facility] LAB Comment: ----REFERENCE VALUE---- Negative Trace Glucose Negative Negative mg/dL 09/08/2017 11:13 AM [facility] Ketone Negative Negative mg/dL 09/08/2017 11:13 AM [facility] Bilirubin Negative Negative 09/08/2017 11:13 AM [facility] pH 6.0 5.0 - 8.0 09/08/2017 11:13 AM [facility] Specific [place] 1.015 1.001 - 1.035 09/08/2017 11:13 AM [facility] Urobilinogen 0.2 0.2 - 1.0 09/08/2017 11:13 AM [facility] LAB Specimen Anatomical Collection Method Collection Time Receive d Time (Source) Location / / Volume Laterality Urine (Urine, 09/08/2017 11:03 09/08/2017 Clean Catch) AM HOP PICKER 11:05 AM HOP PICKER Dimitri Car M.D. LAB URINE ORDERABLES Performing Organization Address City/State/ZIP Code Phon e Number [facility] [address] [facility] [place] [address] [facility] (ABNORMAL) CRP (C-Reactive Protein) (09/08/2017 10:50 AM HOP PICKER) Analysis Performed At Patho logist Time Signature C-Reactive 115.8 (H) <=8.0 mg/L 09/08/2017 [facility] Protein (CRP), 11:12 AM [facility] LAB Specimen Anatomical Collection Method Collection Time Receive d Time (Source) Location / / Volume Laterality Blood (Blood, 09/08/2017 10:50 09/08/2017 Venous) AM HOP PICKER 10:52 AM HOP PICKER Dimitri Car M.D. LAB BLOOD ADD-ON Performing Organization Address City/State/ZIP Code Phon e Number [facility] [address] [place] [address] [place] [address] [facility] [facility] hCG (Human Chorionic Gonadotropin), Quantitative, (09/08/2017 10:50 AM HOP PICKER) athologist Signature HCG, <0.5 IU/L 09/08/2017 [facility] Quantitative, 11:36 AM [facility] Comment: Biotin has been identified by the doug saucedo as a potential interfering substance. ??Higher concentr ations of biotin may be found in multivitamins, hair/nail supple ments, and workout supplements. ??If the result does not [facility] clinical observations, repeat testing after patient refrains fr om the use of supplements for at least 12 hours. ----REFERENCE VALUE---- <5.0 Negative 5.0-25.0 Indeterminate >25.0 Positive Specimen Anatomical Collection Method Collection Time Receive d Time (Source) Location / / Volume Laterality Blood (Blood, 09/08/2017 10:50 09/08/2017 Venous) AM HOP PICKER 10:52 AM HOP PICKER Dimitri Car M.D. LAB BLOOD ADD-ON Performing Organization Address City/State/ZIP Code Phon e Number [facility] [place] [address] [facility] Lipase (09/08/2017 10:50 AM HOP PICKER) athologist Signature Lipase, P 22 13 - 60 U/L 09/08/2017 [facility] 11:13 AM [facility] Specimen Anatomical Collection Method Collection Time Receive d Time (Source) Location / / Volume Laterality Blood (Blood, 09/08/2017 10:50 09/08/2017 Venous) AM HOP PICKER 10:52 AM HOP PICKER Dimitri Car M.D. LAB BLOOD ADD-ON Performing Organization Address City/State/ZIP Code Phon e Number [facility] [address] [facility] [place] [address] [facility] Lactate (09/08/2017 10:50 AM HOP PICKER) P athologist Signature Lactate, P 0.7 0.6 - 2.3 09/08/2017 [facility] mmol/L 11:11 AM [facility] Specimen Anatomical Collection Method Collection Time Receive d Time (Source) Location / / Volume Laterality Blood (Blood, 09/08/2017 10:50 09/08/2017 Venous) AM HOP PICKER 10:52 AM HOP PICKER Dimitri Car M.D. LAB BLOOD NON ADD-ON Performing Organization Address City/State/ZIP Code Phon e Number [facility] [place] [address] [facility] (ABNORMAL) Hepatic Function Panel (09/08/2017 10:50 AM HOP PICKER) Patholo gist Method Time Signature Bilirubin, Total, S 1.1 <=1.2 09/08/2017 [facility] mg/dL 11:12 AM [facility] Bilirubin, Direct, S 0.2 0.0 - 0.3 09/08/2017 [facility] mg/dL 11:12 AM [facility] Aspartate 32 8 - 43 09/08/2017 [facility] Aminotransferase U/L 11:12 AM [employer] ([facility]), [employer] [facility] Alanine 83 (H) 7 - 45 09/08/2017 [facility] Aminotransferase U/L 11:12 AM [employer] (ALT), S [employer] [facility] Alkaline 101 (H) 37 - 98 09/08/2017 [facility] Phosphatase, S U/L 11:12 AM [facility] Albumin, S 3.9 3.5 - 5.0 09/08/2017 [facility] g/dL 11:12 AM [facility] Protein, Total, S 6.9 6.3 - 7.9 09/08/2017 [facility] g/dL 11:12 AM [facility] Specimen Anatomical Collection Method Collection Time Receive d Time (Source) Location / / Volume Laterality Blood (Blood, 09/08/2017 10:50 09/08/2017 Venous) AM HOP PICKER 10:52 AM [facility] Dimitri Car M.D. LAB BLOOD ADD-ON Performing Organization Address City/State/ZIP Code Phon e Number [facility] [address] [place] [address] [facility] BMP (Basic Metabolic Panel) (09/08/2017 10:50 AM HOP PICKER) P athologist Signature Potassium, P 4.2 3.6 - 5.2 09/08/2017 [facility] mmol/L 11:13 AM [facility] Sodium, P 135 135 - 145 09/08/2017 [facility] mmol/L 11:13 AM [facility] Chloride, P 99 98 - 107 09/08/2017 [facility] mmol/L 11:13 AM [facility] Bicarbonate, P 22 22 - 29 09/08/2017 [facility] mmol/L 11:13 AM [facility] Anion Gap, P 14 7 - 15 09/08/2017 [facility] 11:13 AM [facility] BUN (Blood Urea 7 6 - 21 09/08/2017 [facility] Nitrogen), P mg/dL 11:13 AM [facility] Creatinine 0.62 0.59 - 09/08/2017 [facility] 1.04 mg/dL 11:13 AM [facility] eGFR-Black/Afri >90 >=60 09/08/2017 [facility] can [place] mL/min/BSA 11:13 AM [facility] LAB Comment: ----ADDITIONAL INFORMATION---- Estimated GFR calculated using the 2009 CKD_EPI creatinine equation. eGFR Non-Black/ >90 >=60 mL/min/BSA 09/08/2017 11:13 AM [facility] [place] [facility] Comment: ----ADDITIONAL INFORMATION---- Estimated GFR calculated using the 2009 CKD_EPI creatinine equation. Calcium, Total, P 9.1 8.9 - 10.1 mg/dL 09/08/2017 1 1:13 AM [facility] Glucose, P 104 70 - 140 mg/dL 09/08/2017 11:13 AM [facility] LAB Specimen Anatomical Collection Method Collection Time Receive d Time (Source) Location / / Volume Laterality Blood (Blood, 09/08/2017 10:50 09/08/2017 Venous) AM HOP PICKER 10:52 AM HOP PICKER Dimitri Car M.D. LAB BLOOD ADD-ON Performing Organization Address City/State/ZIP Code Phon e Number [facility] [address] [place] [address] [facility] (ABNORMAL) CBC with Differential (09/08/2017 10:50 AM HOP PICKER) [facility] Method Time Signature Hemoglobin 12.3 11.6 - 09/08/2017 [facility] 15.0 g/dL 10:56 AM [facility] Hematocrit 37.8 35.5 - 09/08/2017 [facility] 44.9 % 10:56 AM [facility] Erythrocytes 4.60 3.92 - 09/08/2017 [facility] 5.13 10:56 AM [facility] HEALTH x10(12)/L [facility] MCV 82.2 78.2 - 09/08/2017 [facility] 97.9 fL 10:56 AM [facility] RBC Distrib Width 13.9 12.2 - 09/08/2017 [facility] 16.1 % 10:56 AM [facility] Platelet Count 293 157 - 371 09/08/2017 [facility] x10(9)/L 10:56 AM [facility] Leukocytes 15.8 (H) 3.4 - 9.6 09/08/2017 [facility] x10(9)/L 10:56 AM [facility] Neutrophils 13.48 (H) 1.56 - 09/08/2017 [facility] 6.45 10:56 AM [facility] [employer] x10(9)/L [facility] [place] [facility] Lymphocytes 1.35 0.95 - 09/08/2017 [facility] 3.07 10:56 AM [facility] [employer] x10(9)/L SYSTEM [facility] [place] [facility] Monocytes 0.87 (H) 0.26 - 09/08/2017 [facility] 0.81 10:56 AM [facility] [employer] x10(9)/L SYSTEM [facility] [employer] [facility] Eosinophils 0.04 0.03 - 09/08/2017 [facility] 0.48 10:56 AM [facility] HEALTH x10(9)/L SYSTEM- [facility] Basophils 0.03 0.01 - 09/08/2017 [facility] 0.08 10:56 AM [facility] HEALTH x10(9)/L SYSTEM- [facility] Specimen Anatomical Collection Method Collection Time Receive d Time (Source) Location / / Volume Laterality Blood (Blood, 09/08/2017 10:50 09/08/2017 Venous) AM HOP PICKER 10:52 AM HOP PICKER Dimitri Car M.D. LAB BLOOD ADD-ON Performing Organization Address City/State/ZIP Code Phon e Number [facility] [address] [place] [address] [facility] documented in this encounter Visit Diagnoses Diagnosis Appendicitis Acute - Primary Appendicitis Acute Appendicitis Acute documented in this encounter Administered Medications Inactive Administered Medications - up to 3 most recent administrations Medication Order MAR Action Action Date Dose Rate Site ciprofloxacin in D5W IVPB New Bag 09/08/2017 12:29 PM 400 mg 2 00 mL/hr Right Hand 400 mg (for_CIPRO) HOP PICKER 400 mg, intravenous, at 200 mL/hr, Administer over 60 Minutes, Once, On Wed09/08/17 at 1216, For 1 dose, premix bag, Drug Monitoring Program: Pharmacist to adjust medication order based on comorbities and indication., Indications: Appendicitis ciprofloxacin in D5W IVPB New Bag 09/09/2017 12:23 AM 400 mg 2 00 mL/hr Right Hand 400 mg (for_CIPRO) HOP PICKER 400 mg, intravenous, at 200 mL/hr, Administer over 60 Minutes, Once, On Wed09/09/17 at 0030, For 1 dose, Start within 12 hours of last dose. premix bag, Drug Monitoring Program: Pharmacist to adjust medication order based on comorbities and indication., Indications: Prophylaxis, surgical heparin (porcine) 5,000 Given 09/08/2017 2:43 PM HOP PICKER 5,000 Units Abdominal Tissue unit/0.5 mL injection - ADS Override Pull Starting on Wed09/08/17 at 1426, For 1 dose, Created by cabinet override heparin (porcine) Given 09/09/2017 9:14 AM HOP PICKER 7,500 Units Left Lower Abdomen injection 7,500 Units 7,500 Units, subcutaneous, 3 times daily, First dose on Wed09/09/17 at 0145 Given 09/09/2017 1:48 AM HOP PICKER 7,500 Units Right Lower Abdomen HYDROmorphone injection 0.5 mg (for_DILA UDID) Given 09/08/2017 2:40 PM HOP PICKER 0.5 mg 0.5 mg, intravenous, Every 1 hour PRN, moderate pain or score 4-6 of 10, Starting on Wed09/08/17 at 1253 iohexol 350 mg iodine/mL solution Given 09/08/2017 11:54 AM HOP PICKER 171 mL Right Hand 171 mL (for_OMNIPAQUE) 171 mL, intravenous, Once in imaging, contrast, Starting on Wed09/08/17 at 1059, For 1 dose ketorolac injection 30 mg Given 09/08/2017 10:57 AM HOP PICKER 30 mg Right Hand (for_TORADOL) 30 mg, intravenous, Once, On Wed09/08/17 at 1040, For 1 dose, Adult IV push rate: Over 15 seconds. Peds IV push rate: Over 1 minute. 60 mg dose only for IM, not recommended for IV., Drug Monitoring Program: Pharmacist to adjust medication order based on comorbities and indication. lactated ringers New Bag 09/08/2017 2:50 PM HOP PICKER 20 mL/hr 20 mL/hr 20 mL/hr, intravenous, Continuous, Starting on Wed09/08/17 at 1430, Pre-Op lactated ringers Rate/Dose Verify 09/08/2017 10:00 PM HOP PICKER 75 mL/hr 75 mL/hr 75 mL/hr, intravenous, Continuous, Starting on Wed09/08/17 at 2000 New Bag 09/08/2017 7:55 PM HOP PICKER 75 mL/hr 75 mL/hr lidocaine 50 mL, bupivacaine PF Given 09/08/2017 5:17 PM HOP PICKER 9 m L Abdominal Tissue 50 mL 100 mL injection As needed, Starting on Wed09/08/17 at 1717, Intra-Op metroNIDAZOLE in NaCl (iso-osm) New Bag 09/08/2017 1:39 PM HOP PICKER 500 mg 200 mL/hr IVPB 500 mg (for_FLAGYL) 500 mg, intravenous, at 200 mL/hr, Administer over 30 Minutes, Once, On Wed09/08/17 at 1210, For 1 dose, Indications: Appendicitis metroNIDAZOLE in NaCl (iso-osm) New Bag 09/09/2017 5:36 AM HOP PICKER 500 mg 200 mL/hr IVPB 500 mg (for_FLAGYL) 500 mg, intravenous, at 200 mL/hr, Administer over 30 Minutes, Every 8 hours, First dose on Wed09/08/17 at 2145, For 2 doses, Start within 8 hours of last dose., Indications: Prophylaxis, surgical New Bag 09/08/2017 9:25 PM HOP PICKER 500 mg 200 mL/hr morphine injection 4 mg Given 09/08/2017 10:57 AM HOP PICKER 4 mg 4 mg, intravenous, Every 20 min PRN, moderate pain or score 4-6 of 10, severe pain or score 7-10 of 10, Starting on Wed09/08/17 at 1038, For 3 doses NaCl 0.9 % bolus 1,000 New Bag 09/08/2017 10:58 AM 1,000 mL 2000 mL/hr Right Hand mL HOP PICKER 1,000 mL, intravenous, at 2,000 mL/hr, Administer over 0.5 Hours, Once, On Wed09/08/17 at 1040, For 1 dose NaCl 0.9% infusion New Bag 09/08/2017 11:27 AM 1,000 mL/hr 1000 mL/hr Right Aiken nd 1,000 mL/hr, HOP PICKER intravenous, Continuous, Starting on Wed09/08/17 at 1040, For Hydration ondansetron (PF) injection 4 mg (for_ZOF RAN) Given 09/08/2017 2:51 PM HOP PICKER 4 mg 4 mg, intravenous, Every 20 min PRN, nausea, vomiting, Starting on Wed09/08/17 at 1038, For 2 doses Given 09/08/2017 10:57 AM HOP PICKER 4 mg ondansetron (PF) injection 4 mg (for_ZOF RAN) 4 mg, intravenous, Every 6 hours PRN, na usea, vomiting, Starting on Wed09/08/17 at 1254 oxyCODONE IR tablet 5 mg (for_ROXICODONE ) Given 09/09/2017 5:45 AM HOP PICKER 5 mg 5 mg, oral, Every 4 hours PRN, mild pain or score 1-3 of 10, Starting on Wed09/08/17 at 1839 Given 09/09/2017 12:40 AM HOP PICKER 5 mg sodium chloride 0.9 % injection 10 mL 10 mL, intravenous, As needed, line care, Starting on Wed09/08/17 at 1037, Peripheral Intravenous Catheter and Rapid Infusion Cat heter, prior to blood sampling, post blood transfusion or post blood samplin g sodium chloride 0.9 % injection 10 Given 09/08/2017 11:55 AM HOP PICKER 10 mL Right Hand mL 10 mL, [...] % injection 80 Given 09/08/2017 11:09 AM HOP PICKER 80 mL Right Hand mL 80 mL, intravenous, Once, On Wed09/08/17 at 1109, For 1 dose documented in this encounter Active and Recently Administered Medications Times are shown in HOP PICKER. Scheduled Medication Order 09/07/2017 09/08/2017 09/09/2017 ciprofloxacin [...] - Comment: incorrect order by [facility] T.O. not to give had difficulity removing [...] available)1440 (Given - Provider: Zelda Vilchis RBrittaneyNBrittaney)181 ([facility] Unhold - Provider: Transfer [...] bupivacaine PF 50 mL 100 mL injection ([facility]) 1717 (Given - Provider: Jaquan Monahan D.O.) As needed, Starting on Wed09/08/17 at 1717, Intra-Op morphine injection 4 mg 1057 (Given - Pr ovider: Keiry Perales R.N.)1408 ([facility] Hold - Provider: Transfer Provider, Automatic - Reason: Patient not available)181 ([facility] Unhold - Provider: Transfer [...] available)1451 (Given - Provider: Zelda Vilchis R.N.)1811 ([facility] Unhold - Provider: Transfer Provider, Automatic) 4 mg, intravenous, Every 20 min PRN, [place], vomiting, Starting on Wed09/08/17 at 1038, For 2 doses ondansetron (PF) injection 4 mg (for_ZOFRAN) 1408 ([facility] Hold - Provider: Transfer Provider, Automatic - Reason: Patient not available)1448 (Dose Auto Held)181 ([facility] Unhold - Provider: Transfer [...] documented as of this encounter Care Teams Poultry Hatchery Man Relationship Specialty Start Date End Date Blaire Bundy P.A.-C. PCP - General 02/04/17 04/26/19 documented as of this encounter
--- OUTSIDE RECORDS SUMMARY | 2022-08-03 09:43 | XMS_ITS | Encounter Summary ---
:1985 Author Organization [facility] Address [address] [place] [address] Care Team Providers Name Role Phone Blaire [...] How often do you attend worship or quaker More than 4 time s [...] in this encounter Results HX Syphilis Antibody [place], S (06/23/2017 8:47 AM CDT) [facility] Method Time Signature HX Syphilis Negative Negative [facility] Igg Ab LABORATORIES - W/Reflex, S [facility] Comment: Peripheral IV ? No serologic evidence of exposure to syp hilis. ? Specimen Anatomical Collection Method Collection Time Receive d Time (Source) Location / / Volume Laterality 06/23/2017 8:47 AM 7 8:47 CDT [address] [facility] - 06/23/2017 12:57 PM CDT Peripheral IV Carol Hoskins M.D. LAB HISTORICAL ORDERS Performing Organization Address City/State/ZIP Code Phon e Number [facility] [address] [place], [place] [address] [facility] documented in this encounter Visit Diagnoses Not on filedocumented in this encounter Additional Health Concerns Assessment Noted Time PHQ-9 Depression Total Score: 7 04/07/2017 9:39 AM CDT documented as of this encounter Care Teams Associate Teacher Relationship Specialty Start Date End Date Blaire Bundy PGladys. PCP - General 02/04/17 04/26/19 documented as of this encounter
--- OUTSIDE RECORDS SUMMARY | 2022-08-03 09:43 | XMS_ITS | Encounter Summary ---
:1985 Author Organization [facility] Address [address] [place] [address] Care Team Providers Name Role Phone Catracho Bundy P.A.-C. Primary Care Provider Encounter Details Date Type Department Care Team Description 06/08/2017 Hospital Encounter HX [facility] Leonora Melchor, Maureen TARIQ, C.N.P. [address] [place], [place] [address] (Wo rk) Social History [...] How often do you attend restoration or jew More than 4 time s [...] status: none position: vertex via ultrasound in r[place]. Electronically Signed By: LEONORA VILLASEÑOR R.N., WHNP-BC On: 06/08/2017 09:29 AM Source: [facility] POWERCHART Document Id: [id number] documented in this encounter Nursing Notes VoCleopatra corona L.P.N. - 06/08/2017 9:02 AM CDT Ambulatory Patient Education The following Patient Education Materials have been given to the patient: Patient Education Materials: Inclinometer Tester What Is Group B Strep? Inclinometer Tester What Is Group B Strep? Group B [...] with a group B strep infection ?? [id number] [facility], [address] [place] [address], [place] [address]. All rights reserved. This information is not intended as a substitute for professional medical care. Always follow your healthcare professional's instructions. This document has images extracted. Please consider using [employer] for all your patient education needs. Source: [facility] POWERCHART Document Id: [id number] documented in this encounter Miscellaneous Notes Miscellaneous - Leonora Villaseñor R.N., WHNP-BC - 06/08/2017 9:39 AM CDT Ambulatory Discharge Medication List [address] [facility] [address] [place], [place] [id number] Visit Information Name: PUNEET COOLEY [facility] Number: [id number] Current Date: 06/08/2017 09:39:23 Attending Provider: LEONORA VILLASEÑOR R.N., [facility] Primary Care Provider: CATRACHO NAZARIO PA-C [...] WHNP-BC Signed On:08-JUN-2017 09:39:20 Additional Information: Source: [facility] POWERCHART Document Id: [id number] Miscellaneous - Leonora Villaseñor R.N., WHNP-BC - 06/08/2017 9:39 AM CDT Ambulatory Patient Summary [facility] [address] [place], [address] [place], [place] [id number] Visit Information Name: PUNEET COOLEY [facility] Number: [id number] Current Date: 06/08/2017 [...] with a group B strep infection ?? [id number] [place] [address]. All rights reserved. This information is not [...] if you dont have one. Go to [email or web address] and click on Create Your Account. Then, follow the directions to complete the online form. Youll be asked for your [facility] number which you can find at the top of this document. Your Goals/Additional instructions: This document has images extracted. Please consider using [employer] for all your patient education needs. Source: [facility] POWERCHART Document Id: [id number] Miscellaneous - Cleopatra Laguerre L.P.N. - 06/08/2017 9:05 AM CDT Adult Supplier Development Manager Intake/History Adult Supplier Development Manager Intake/History Entered On: 06/08/2017 9:10 CDT Performed [...] LAGUERRE LPN - 06/08/2017 9:05 CDT [facility] POWERCHART Document Id: [id number] CDT!50 documented in this encounter Plan of Treatment Not on filedocumented as of this encounter Visit Diagnoses Not on filedocumented in this encounter Additional Health Concerns Assessment Noted Time PHQ-9 Depression Total Score: 7 04/07/2017 9:39 AM CDT documented as of this encounter Care Teams Nurse Case Manager Relationship Specialty Start Date End Date Catracho Bundy P.A.-C. PCP - General 02/04/17 04/26/19 documented as of this encounter
--- OUTSIDE RECORDS SUMMARY | 2022-08-03 09:44 | XMS_ITS | Encounter Summary ---
:1985 Author Organization [facility] Address [address] [place] [address] Care Team Providers Name Role Phone Blaire [...] Address City/State/ZIP Code Phon e Number [place] documented in this encounter Visit Diagnoses Not on filedocumented in this encounter Additional Health Concerns Assessment Noted Time PHQ-9 Depression Total Score: 7 04/07/2017 9:39 AM CDT documented as of this encounter Care Teams Consultant Dietitian Relationship Specialty Start Date End Date Blaire Bundy P.A.-C. PCP - General 02/04/17 04/26/19 documented as of this encounter
--- OUTSIDE RECORDS SUMMARY | 2022-08-03 09:44 | XMS_ITS | Encounter Summary ---
:1985 Author Organization [facility] Address [address] [place] [address] Care Team Providers Name Role Phone Unavailable Primary Care Provider Unavailable Encounter Details Date Type Department Care Team Description 11/16/2016 Hospital Encounter HX [facility] Keith Nguyen M.D. [address] [place] [address] (Wo rk) Social History [...] Name MBO Review Rapid Strep A Source: [facility] [employer] Document Id: [id number] documented in this encounter Plan of Treatment [...] Strep A Screen (11/16/2016 9:30 AM CDT) [facility] Method Time Signature HXRapid Strep POWERCHART Confirmation HXPre Pending POWERCHART HXFinal NEG POWERCHART HXFinal [facility] POWERCHART [facility] [id number] Specimen Anatomical Collection Method Collection Time Receive d Time (Source) Location / / Volume Laterality Throat 11/16/2016 9:30 AM 7 9:30 CDT AM CDT Keith Nguyen M.D. LAB MICROBIOLOGY - GENERAL O RDERABLES Performing Organization Address City/State/ZIP Code Phon e Number POWERCHART Rapid Strep A Screen (11/16/2016 9:30 AM CDT) [facility] Method Time Signature [...]
--- OUTSIDE RECORDS SUMMARY | 2022-08-03 09:44 | XMS_ITS | Encounter Summary ---
:1985 Author Organization [facility] Address [address] [place] [address] Care Team Providers Name Role Phone Catracho Bundy P.A.-C. Primary Care Provider Encounter Details Date Type Department Care Team Description 02/22/2017 Hospital Encounter HX [facility] Ashwin Bundy PBrittaneyABrittaney-CBrittaney [address] [place] [address] (Wo rk) Social History Tobacco Use Types [...] How often do you attend christian or alevism More than 4 time s [...] NAZARIO PA-C On: 02/24/2017 07:37 AM Source: [facility] POWERCHART Document Id: [id number] Leonora Barrios C.M.A. - 02/22/2017 10:36 AM CDT [facility] Services [facility] Exam Eye Services Clinic Exam Entered On: 02/22/2017 10:37 CDT Performed On: 02/22/2017 10:36 CDT by LEONORA BARRIOS [facility] Chief Complaint and History Chief Complaint : Eye pain Pain Symptoms : Yes Smoking Status : Light tobacco smoker LEONORA BARRIOS [facility] - 02/22/2017 10:36 CDT Vision Testing Right Eye Vision Testing : With glasses - primary, 20/25 Left Eye Vision Testing : With glasses - primary, 20/30 Both Eyes Vision Testing : With glasses - primary, 20/25 LEONORA BARRIOS [employer] DEVELOPER - 02/22/2017 10:36 CDT Pain Scale Pain Scale Verbal 0-10 : Open LEONORA BARRIOS CMA - 02/22/2017 10:36 CDT Pain Pain Assessment Grid Pain 1 Location : Eye Laterality : Left Intensity : 6 LEONORA BARRIOS CMA - 02/22/2017 10:36 CDT Source: [facility] [employer] Document Id: [id number] CDT!17 documented in this encounter Miscellaneous Notes Miscellaneous - Catracho Nazario - 02/22/2017 10:44 AM CDT Work Excuse February 22, 2017 PUNEET FORREST [address] [facility] [id number] Dear PUNEET CLAYTON, You were examined in my office on: 02/22/17 Reason for work excuse: Medical Illness ( X ) Yes ( _ ) No Injury ( _ ) Yes ( _ ) No Is excused from all work: ( X ) Yes ( _ ) No Please excuse Puneet from work today. Sincerely, CATRACHO NAZARIO [id number] [address] Electronic Signature Electronically Signed By: CATRACHO NAZARIO PA-C On: February 22, 2017 This document has images extracted. Source: [facility] [employer] Document Id: [id number] Miscellaneous - Leonora Barrios C.M.ABrittaney - 02/22/2017 10:19 AM CDT Adult Spine Specialist Intake/History Adult Spine Specialist Intake/History Entered On: 02/22/2017 10:23 CDT Performed On: 02/22/2017 10:19 CDT by LEONORA BARRIOS [facility] Intake Chief Complaint : LEFT Eye, yesterday [...] Preferred Communication Mode : Verbal Languages : Palauan Is Patient Female and 13-50 no hysterectomy [...] Use/Advised to Quit : Yes LEONORA BARRIOS [facility] - 02/22/2017 10:19 CDT Caffeine Use Grid Caffeine Use : Current Type : Coffee, Soft drinks Frequency : Occasionally LEONORA BARRIOS [facility] - 02/22/2017 10:19 CDT Recreational Drug Use Grid Drug Use : None LEONORA BARRIOS [facility] - 02/22/2017 10:19 CDT Source: [facility] [employer] Document Id: [id number] CDT!58 documented in this encounter Plan of Treatment Not on filedocumented as of this encounter Visit Diagnoses Not on filedocumented in this encounter Additional Health Concerns Assessment Noted Time PHQ-9 Depression Total Score: 11 12/13/2014 9:50 AM CD T documented as of this encounter Care Teams Epic Trainer Relationship Specialty Start Date End Date Catracho Bundy P.A.-C. PCP - General 02/04/17 04/26/19 documented as of this encounter
--- OUTSIDE RECORDS SUMMARY | 2022-08-03 09:44 | XMS_ITS | Encounter Summary ---
:1985 Author Organization [facility] Address [address] [place] [address] Care Team Providers Name Role Phone Unavailable Primary Care Provider Unavailable Encounter Details Date Type Department Care Team Description 10/29/2016 Hospital Encounter HX [facility] Maureen Hooker, DRUM TESTER, C.N.P., D. N.P. [address] [place] [address] (Wo rk) Social History Tobacco [...] Comments Blood Pressure 144/90 10/29/2016 9:32 AM BROKERAGE OFFICE MANAGER Pulse 104 10/29/2016 9:32 AM BROKERAGE OFFICE MANAGER Temperature - - Respiratory Rate 20 10/29/2016 9:28 AM BROKERAGE OFFICE MANAGER Oxygen Saturation - - Inhaled Oxygen Concentration - - Weight 149 kg (329 lb 5.9 oz) 10/29/2016 9:28 AM BROKERAGE OFFICE MANAGER Height 157 cm (5' 1.81) 10/29/2016 9:32 AM BROKERAGE OFFICE MANAGER Body Mass Index 60.61 10/29/2016 9:28 AM BROKERAGE OFFICE MANAGER documented in this encounter Medications at [...] Panel OV Est Pt Level 4 - 14266 - 25 min 2. Missed Menses test is POSITIVE today. She was advised to start a vitamin today and follow up with her OBGYN soon for her first ultrasound. Ordered: OV Est Pt Level 4 - 90329 - 25 min 3. Headache Migraine Tylenol for migraines. We will also trial a 2-week course of an antihistamine and flonase nasal spray for possible sinus headaches. Ordered: OV Est Pt Level 4 - 14381 - 25 min Sinusitis Allergic See #2. Ordered: fluticasone nasal, 2 spray(s), Nostrils(Both), Daily, allergies, # 16 gm, 4 Refill(s), Maintenance,Pharmacy: [facility] loratadine, 10 mg = 1 tab(s), PO, Daily, x 30 day(s), # 30 tab(s), 11 Refill(s), Acute, over the counter medication (Rx) OV Est Pt Level 4 - 45278 - 25 min Patient was instructed to [...] C.N.P., D.N.P On: 10/29/2016 12:26 PM Source: [facility] POWERCHART Document Id: [id number] ERAGE OFFICE MANAGER documented in this encounter Miscellaneous Notes Miscellaneous - Rylee Hooker APRN, C.N.P., Priti.N.P. - 10/29/2016 10:07 AM BROKERAGE OFFICE MANAGER Ambulatory Patient Summary [address] [place] [id number] Visit Information Name: PUNEET CLAYTON [facility] Number: [id number] Current Date: 10/29/2016 10:07:20 [...] nasal (Flonase 50 mcg/inh nasal spray) 2 Orosi(s), Nostrils(Both), once a day allergies New Routed to [address] [id number] furosemide (furosemide 20 mg oral tablet) 1 Tablet(s), Oral, once a day swelling New Routed to [facility] [address] [place] [address] ibuprofen (ibuprofen 400 mg oral tablet) 1 Tablet(s), Oral, every 4 hours as needed for Pain / FeverTake with food loratadine (Claritin 10 mg oral tablet) 1 Tablet(s), Oral, once a day x 30 day(s) New rizatriptan (Maxalt-STARCH AND PROSIZE MIXER 10 mg oral tablet, disintegrating) 1 Tablet(s), Oral, as directed as needed for Migraine headache Take 1 tablet at onset of headache. Repeat after two hours if needed. New Routed to [address] [address] Stop Taking the Following Medications: SUMAtriptan (Imitrex [...] Appointments Date Time Location Provider 11/05/2016 12:45 [facility] ENT Jimmie CERON, Venu Gomez Attention: [...] online form. Youll be asked for your [facility] number which you can find at the top of this document. Your Goals/Additional instructions: Source: [facility] POWERCHART Document Id: [id number] ERAGE OFFICE MANAGER Miscellaneous - Rylee Hooker APRN C.N.P., D.N.P. - 10/29/2016 10:07 AM BROKERAGE OFFICE MANAGER Ambulatory Discharge Medication List [address] [place] [id number] Visit Information Name: PUNEET CLAYTON [facility] Number: [id number] Current Date: 10/29/2016 10:07:19 [...] nasal (Flonase 50 mcg/inh nasal spray) 2 Orosi(s), Nostrils(Both), once a day allergies New Routed to [address] [address] furosemide (furosemide 20 mg oral tablet) 1 Tablet(s), Oral, once a day swelling New Routed to [address] [phone] ibuprofen (ibuprofen 400 mg oral tablet) 1 Tablet(s), Oral, every 4 hours as needed for Pain / FeverTake with food loratadine (Claritin 10 mg oral tablet) 1 Tablet(s), Oral, once a day x 30 day(s) New rizatriptan (Maxalt-STARCH AND PROSIZE MIXER 10 mg oral tablet, disintegrating) 1 Tablet(s), Oral, as directed as needed for Migraine headache Take 1 tablet at onset of headache. Repeat after two hours if needed. New Routed to [address] [phone] Stop Taking the Following Medications: SUMAtriptan (Imitrex [...] D.N.P Signed On:29-OCT-2016 10:07:14 Additional Information: Source: [facility] [employer] Document Id: [id number] ERAGE OFFICE MANAGER Leilani - Craig Tolentino L.P.N. - 10/29/2016 9:32 AM CST Ambulatory Vitals Height Weight Ambulatory Vitals Height Weight Entered On: 10/29/2016 9:33 BROKERAGE OFFICE MANAGER Performed On: 10/29/2016 9:32 BROKERAGE OFFICE MANAGER by CRAIG TOLENTINO LPN Vitals/Ht/Wt Peripheral Pulse Rate : 104 /min (HI) Systolic Blood Pressure : 144 mmHg (HI) Diastolic Blood Pressure : 90 mmHg (HI) NIBP Mean : 108 mmHg BP Location : Left upper extremity Blood Pressure Cuff Size : Large Height : 157 cm(Converted to: 5 ft 2 inch(es), 62 inch(es)) CRAIG TOLENTINO LPN - 10/29/2016 9:32 BROKERAGE OFFICE MANAGER Source: [facility] [employer] Document Id: [id number] BROKERAGE OFFICE MANAGER!9 ERAGE OFFICE MANAGER Leilani - Craig Tolentino L.P.N. - 10/29/2016 9:28 AM CST Adult Chain Tender Intake/History Adult Chain Tender Intake/History Entered On: 10/29/2016 9:31 BROKERAGE OFFICE MANAGER Performed On: 10/29/2016 9:28 BROKERAGE OFFICE MANAGER by CRAIG TOLENTINO LPN Intake Chief [...] 60.61 kg/m2 CRAIG TOLENTINO LPN 10/29/2016 9:28 BROKERAGE OFFICE MANAGER General Info Information Given By : Patient Preferred Communication Mode : Verbal Languages : Citizen Of [place] Is Patient Female and 13-50 no hysterectomy : Yes Status : Possible unconfirmed Are you ? : No CRAIG TOLENTINO LPN 10/29/2016 9:28 BROKERAGE OFFICE MANAGER Subjective Pain Symptoms : Yes CRAIG TOLENTINO LPN 10/29/2016 9:28 BROKERAGE OFFICE MANAGER Pain Scale Pain Scale Verbal 0-10 : Open CRAIG TOLENTINO LPN 10/29/2016 9:28 BROKERAGE OFFICE MANAGER Pain Pain Assessment Grid Pain 1 Location : Head Intensity : 5 CRAIG TOLENTINO LPN 10/29/2016 9:28 BROKERAGE OFFICE MANAGER Dependent Habits Exposure to Tobacco Smoke : Patient smokes Smoking Status : Current every day smoker Tobacco 2A : Yes Tobacco Use/Currently Using : Yes Tobacco Use/Last 30 Days : Yes Tobacco Use/Last 12 months : Yes Type : Cigarettes: Less than 20 per day Tobacco Use/Advised to Quit : Yes Alcohol Use : No CRAIG TOLENTINO LPN 10/29/2016 9:28 BROKERAGE OFFICE MANAGER Caffeine Use Grid Caffeine Use : Current Type : Coffee, Soft drinks Frequency : Occasionally CRAIG TOLENTINO LPN - 10/29/2016 9:28 BROKERAGE OFFICE MANAGER Recreational Drug Use Grid Drug Use : None CRAIG TOLENTINO LPN 10/29/2016 9:28 BROKERAGE OFFICE MANAGER [facility] Document Id: [id number] BROKERAGE OFFICE MANAGER!55 ERAGE OFFICE MANAGER documented in this encounter Plan of Treatment Not on filedocumented as of this encounter Procedures Procedure Name Priority Date/Time Associated Diagnosis Comme nts BASIC METABOLIC Routine 10/29/2016 10:16 AM Resul ts for this PANEL, S/P BROKERAGE OFFICE MANAGER procedure are i n the results section. TEST, U Routine 10/29/2016 10:00 AM Res ults for this BROKERAGE OFFICE MANAGER procedure are i n the results section. documented in this encounter Results BMP (Basic Metabolic Panel) (10/29/2016 10:16 AM BROKERAGE OFFICE MANAGER) P athologist Signature Sodium, S 140 [...] POWERCHART MMOLL HXeGFR (MDRD) >60 >=60 POWERCHART [id number] eGFR >60 >=60 POWERCHART Black/ [id number] Mauritanian Glucose 125 70 - 139 POWERCHART MGDL Specimen (Source) Anatomical Collection Method Collection Time Re ceived Time Location / / Volume Laterality Blood 10/29/2016 10:16 AM BROKERAGE OFFICE MANAGER Rylee Hooker APRN C.N.P., D.N.P. LAB BLOOD ADD-ON Performing Organization Address City/State/ZIP Code Phon e Number POWERCHART Test, Qualitative, Urine (10/29/2016 10:00 AM BROKERAGE OFFICE MANAGER) Patholo gist Method Time Signature HXBeta-hCG Positive POWERCHART Qualitative Urine Specimen (Source) Anatomical Collection Method Collection Time Re ceived Time Location / / Volume Laterality Urine 10/29/2016 10:00 AM BROKERAGE OFFICE MANAGER Rylee Hooker APRN, C.N.P., D.N.P. LAB URINE ORDERAB LES Performing Organization Address City/State/ZIP Code Phon e Number POWERCHART documented in this encounter Visit Diagnoses Not on filedocumented in this encounter Additional Health Concerns Assessment Noted Time PHQ-9 Depression Total Score: 11 12/13/2014 9:50 AM CD T documented as of this encounter
--- OUTSIDE RECORDS SUMMARY | 2022-08-03 09:44 | XMS_ITS | Encounter Summary ---
:1985 Author Organization [facility] Address [address] [place] [address] Care Team Providers Name Role Phone Blaire Bundy P.A.-C. Primary Care Provider [phone] Encounter Details Date Type Department Care Team Description 03/11/2017 Hospital Encounter HX [facility] Leonora Reaves, RESIDENT PROGRAM SPECIALIST, C.N.P. [address] [place] [address] (Wo rk) Social History Tobacco [...] How often do you attend evangelical or quaker More than 4 time s [...] Summary-Paper Based CODING DATE: 03/16/[address] [facility] STATUS: * Discharged to Home [...] ROLDAN Date Saved: 03/16/2017 02:50 pm Source: [facility] POWERCHART Document Id: [id number] documented in this encounter Plan of Treatment Not on filedocumented as of this encounter Visit Diagnoses Not on filedocumented in this encounter Additional Health Concerns Assessment Noted Time PHQ-9 Depression Total Score: 11 12/13/2014 9:50 AM CD T documented as of this encounter Care Teams Plastics Design Engineer Relationship Specialty Start Date End Date Blaire Bundy P.A.-C. PCP - General 02/04/17 04/26/19 documented as of this encounter
--- OUTSIDE RECORDS SUMMARY | 2022-08-03 09:44 | XMS_ITS | Encounter Summary ---
:1985 Author Organization [facility] Address [address] [place] [address] Care Team Providers Name Role Phone Blaire Bundy P.A.-C. Primary Care Provider [phone] Encounter Details Date Type Department Care Team Description 04/07/2017 Hospital Encounter [facility] Leonora Melchor, Maureen TARIQ, C.N.P. [address] [place], [place] [phone] (Wo rk) Social History [...] How often do you attend baptist or anabaptism More than 4 time s [...] documented as of this encounter Care Teams Household Appliance Installer Relationship Specialty Start Date End Date Blaire Bundy P.A.-C. PCP - General 02/04/17 04/26/19 documented as of this encounter
--- OUTSIDE RECORDS SUMMARY | 2022-08-03 09:44 | XMS_ITS | Encounter Summary ---
:1985 Author Organization [facility] Address [address] [place] [address] Care Team Providers Name Role Phone Unavailable Primary Care Provider Unavailable Encounter Details Date Type Department Care Team Description 01/08/2017 Hospital Encounter HX [facility] Health[facility] mckeon M.D. [address] [place] [phone] (Wo rk) Social History Tobacco Use [...] How often do you attend temple or yarsanism More than 4 time s [...] 13:39:18 CDT From: LEONORA HOLMAN MD To: [facility] Nurse Amarilys; Sent: 01/08/2017 13:39:18 CDT Subject: RE: *General Message Looks okay. Just needs to follow up with OB next week. ThanksLeonora From: CRAIG TOLENTINO LPN ([facility] Nurse Panda) To: LEONORA HOLMAN MD; Sent: 01/08/2017 08:58:35 CDT Subject: *General Message Patient came in for BP check and was seen by you yesterday in the clinic. Today's BP 139/78 Pulse-100 137/75 Pulse-91 Please advise. Thank you. Source: [facility] POWERCHART Document Id: [id number] Miscellaneous - Craig Tolentino, L.P.N. - 01/08/2017 [...] TOLENTINO LPN - 01/08/2017 8:53 CDT Source: [email or web address] Document Id: [id number] CDT!11 Miscellaneous - Craig Tolentino, L.P.N. - [...] TOLENTINO LPN - 01/08/2017 8:50 CDT Source: [email or web address] Document Id: [id number] CDT!9 documented in this encounter Plan of Treatment Not on filedocumented as of this encounter Visit Diagnoses Not on filedocumented in this encounter Additional Health Concerns Assessment Noted Time PHQ-9 Depression Total Score: 11 12/13/2014 9:50 AM CD T documented as of this encounter
--- OUTSIDE RECORDS SUMMARY | 2022-08-03 09:44 | XMS_ITS | Encounter Summary ---
:1985 Author Organization [facility] Address [address] [place] [address] Care Team Providers Name Role Phone Unavailable Primary Care Provider Unavailable Encounter Details Date Type Department Care Team Description 11/09/2016 Hospital En[facility] Ashwin Bundy P.ACalistaCBrittaney [address] [place], [place] [phone] (Wo rk) Social History Tobacco Use Types [...] How often do you attend zoroastrianism or jain More than 4 time s [...] convenient for you! From: PUNEET CLAYTON To: [place] [facility] (DISASTER DIRECTOR) Sent: 11/16/2016 11:13 a.m. CDT Subject: RE: [...] hour appointment. Please call the clinic in [place], talk with Tejal in [facility] to schedule! talk soon! Leonora Villaseñor Source: [facility] [employer] Document Id: [id number] Electronically signed by Conversion, [facility] Energy Infrastructure Engineer [id number] at 02/02/2017 2:11 AM CDT Miscellaneous - [...] hour appointment. Please call the clinic in [place], talk with Tejal in [facility] to schedule! talk soon! Leonora Villaseñor Source: [facility] [employer] Document Id: [id number] Electronically signed by Conversion, [facility] Energy Infrastructure Engineer [id number] at 02/02/2017 2:11 AM CDT documented in [...] Performed At Patho logist Time Signature Beta-HCG, 05245.0 <=4.9 IUL POWERCHART Quantitative, (H) S Comment: [...]
--- OUTSIDE RECORDS SUMMARY | 2022-08-03 09:44 | XMS_ITS | Encounter Summary ---
:1985 Author Organization [facility] Address [address] [place] [address] Care Team Providers Name Role Phone Unavailable Primary Care Provider Unavailable Encounter Details Date Type Department Care Team Description 11/24/2016 Hospital Encounter HX [facility] Marisol Lopez APRN, C.N.P. [address] [place] [address] (Wo rk) Social History Tobacco [...] How often do you attend sabianist or lutheran More than 4 time s [...] Coding Summary-Paper Based CODING DATE: 11/27/2016 FINAL [facility] STATUS: * Discharged to Home or Self Care [facility]: REASON FOR VISIT DX: [...] ROLDAN Date Saved: 11/27/2016 10:20 am Source: [employer] Document Id: [id number] Miscellaneous - Leonora Villaseñor RBrittaneyN. - 11/24/2016 12:58 PM CDT From: LEONORA VILLASEÑOR CNP, RN Sent: 11/24/2016 12:58:55 CDT patient notified of ultrasound results. she will schedule new ob visit as soon as she is able. Source: [employer] Document Id: [id number] Electronically signed by [facility], [facility] Securities Adviser [id number] at 02/02/2017 6:27 AM CDT documented in this encounter Plan of Treatment Not on filedocumented as of this encounter Visit Diagnoses Not on filedocumented in this encounter Additional Health Concerns Assessment Noted Time PHQ-9 Depression Total Score: 11 12/13/2014 9:50 AM CD T documented as of this encounter
--- OUTSIDE RECORDS SUMMARY | 2022-08-03 09:44 | XMS_ITS | Encounter Summary ---
:1985 Author Organization [facility] Address [address] [place] [address] Care Team Providers Name Role Phone Unavailable Primary Care Provider Unavailable Encounter Details Date Type Department Care Team Description 10/12/2016 Hospital Encounter [facility]X [facility] Maureen Hooker, CONSULTING PRACTICE DIRECTOR, C.N.P., D. N.P. [address] [place] [phone] (Wo rk) Social History Tobacco [...] Comments Blood Pressure 116/78 10/12/2016 8:36 AM JIGMAKER Pulse 74 10/12/2016 8:36 AM JIGMAKER Temperature - - Respiratory Rate 16 10/12/2016 8:36 AM JIGMAKER Oxygen Saturation - - Inhaled Oxygen Concentration - - Weight - - Height 157 cm (5' 1.81) 10/12/2016 8:36 AM JIGMAKER Body Mass Index - - documented in [...] discomfort, but has not tried anything else [id number] for symptoms. No fever or chills. No [...] Ordered: OV Est Pt Level 3 - 20483 - 15 min Rapid Strep Confirmation 2. [...] C.N.P., D.N.P On: 10/12/2016 09:02 AM Source: [facility] POWERCHART Document Id: [id number] AKER documented in this encounter Miscellaneous Notes Miscellaneous - Rylee Hooker APRN, C.N.P., D.N.P. - 10/13/2016 11:16 AM JIGMAKER Results Notification Document Contains Addenda Addendum by CATRACHO NAZARIO PA-C on October 13, 2016 11:21 JIGMAKER Discussed with patient and order for ENT was sent for patient. From: RYLEE HOOKER APRN CBrittaneyNJud, Priti.N.P Sent: 10/13/2016 11:16:43 JIGMAKER Show up: 10/13/2016 11:11:00 JIGMAKER Subject: Results Notification Patient was contact that [...] Name MBO POS Rapid Strep Confirmation Source: [facility] POWERCHART Document Id: [id number] AKER Miscellaneous - Jude Cardona L.P.N. - 10/12/2016 8:36 AM CST Adult Animal Husbandry Teacher Intake/History Adult Animal Husbandry Teacher Intake/History Entered On: 10/12/2016 8:37 JIGMAKER Performed On: 10/12/2016 8:36 JIGMAKER by JUDE CARDONA LPN Intake Chief Complaint [...] inch(es)) JUDE CARDONA LPN - 10/12/2016 8:36 JIGMAKER General Info Languages : Uzbek Is Patient Female and 13-50 no hysterectomy : Yes Status : Patient denies Are you ? : No JUDE CARDONA LPN - 10/12/2016 8:36 JIGMAKER Subjective Pain Symptoms : Yes WEST CARDONANADIA Purdy LPN - 10/12/2016 8:36 JIGMAKER Pain Scale Pain Scale Verbal 0-10 : Open JUDE CARDONA JEANETTE 10/12/2016 8:36 JIGMAKER Pain Pain Assessment Grid Pain 1 Location : Throat Laterality : Bilateral Intensity : 3 ELVIN JUDE R PROFESSOR OF GEOGRAPHY - 10/12/2016 8:36 JIGMAKER Dependent Habits Exposure to Tobacco Smoke : Patient smokes Smoking Status : Current every day smoker Tobacco 2A : Yes Tobacco Use/Currently Using : Yes Tobacco Use/Last 30 Days : Yes Tobacco Use/Last 12 months : Yes Type : Cigarettes: Less than 20 per day Tobacco Use/Advised to Quit : Yes CARDONA JUDE Purdy LPN 10/12/2016 8:36 JIGMAKER Caffeine Use Grid Caffeine Use : Current Type : Coffee, Soft drinks Frequency : Occasionally VENESSA CARDONASSNADIA Purdy LPN 10/12/2016 8:36 JIGMAKER Recreational Drug Use Grid Drug Use : None CARDONAJUDE PROFESSOR OF GEOGRAPHY 10/12/2016 8:36 JIGMAKER Source: [facility] Rapid RMS Document Id: [id number] JIGMAKER!46 AKER documented in this encounter Plan of Treatment Not on filedocumented as of this encounter Procedures Procedure Name Priority Date/Time Associated Diagnosis Comme nts RAPID STREP A Routine 10/12/2016 8:15 AM Results for this SCREEN JIGMAKER procedure are i n the results section. RAPID STREP A Routine 10/12/2016 8:15 AM Results for this SCREEN JIGMAKER procedure are i n the results section. documented in this encounter Results (ABNORMAL) Rapid Strep A Screen (10/12/2016 8:15 AM JIGMAKER) [facility] Method Time Signature HXRapid Strep (POSITIVE) POWERCHART Confirmation HXPre Pending POWERCHART HXFinal POS POWERCHART HXFinal [facility] [address] [facility] [address] Specimen Anatomical Collection Method Collection Time Receive d Time (Source) Location / / Volume Laterality Throat 10/12/2016 8:15 AM 02/20/201 7 8:15 JIGMAKER AM JIGMAKER Rylee Hooker APRN C.N.P., D.N.P. LAB MICROBIOLOGY - GENERAL ORDERABLES Performing Organization Address City/State/ZIP Code Phon e Number POWERCHART Rapid Strep A Screen (10/12/2016 8:15 AM JIGMAKER) [facility] Method Time Signature HXStrep A POWERCHART Screen Rapid HXFinal Negative for POWERCHART Strep Group A by rapid screen. HXFinal Culture POWERCHART confirmation to follow. Specimen (Source) Anatomical Collection Method Collection Time Re ceived Time Location / / Volume Laterality Throat 10/12/2016 8:15 AM JIGMAKER Marlyn Crocker APRN.N.P., D.N.P. LAB MICROBIOLOGY - GENERAL ORDERABLES Performing Organization Address City/[facility] Code Phon e Number POWERCHART documented in this encounter Visit Diagnoses Not on filedocumented in this encounter Additional Health Concerns Assessment Noted Time PHQ-9 Depression Total Score: 11 12/13/2014 9:50 AM CD T documented as of this encounter
--- OUTSIDE RECORDS SUMMARY | 2022-08-03 09:44 | XMS_ITS | Encounter Summary ---
:1985 Author Organization [facility] Address [address] [place] [address] Care Team Providers Name Role Phone Catracho Bundy P.A.-C. Primary Care Provider [phone] Encounter Details Date Type Department Care Team Description 02/11/2017 Hospital Encounter [facility]X [facility] Marisol Galaviz, SUZI N, C.N.P. [address] [place], [place] [phone] (Wo rk) Social History [...] How often do you attend sabianism or judaism More than 4 time s [...] given to the patient: Patient Education Materials: Eyeglass Frames Inspector Healthy Eating Habits During Eyeglass Frames Inspector Healthy Eating Habits During Its important to [...] water with a slice of lemon or umatilla tribe (these can also help ease an [...] light tuna, salmon, pollock, and catfish ?? 3631[address]7855 [place] [address]. All rights reserved. This information is not intended as a substitute for professional medical care. Always follow your healthcare professional's instructions. This document has images extracted. Please consider using RECUPYL for all your patient education needs. Source: [facility] POWERCHART Document Id: [id number] documented in this encounter Miscellaneous Notes Miscellaneous - Marisol Marques, C.N.P., R.N. - 02/11/2017 10:38 AM CDT Ambulatory Discharge Medication List [facility] [address] [place], [place] [phone] Visit Information Name: PUNEET CLAYTON [facility] Number: [id number] Current Date: 02/11/2017 10:38:54 Attending Provider: MARISOL MARQUES CNP, striper machine Provider: CATRACHO NAZARIO PA-C PUNEET CLAYTON has [...] RN Signed On:11-FEB-2017 10:38:51 Additional Information: Source: [facility] POWERCHART Document Id: [id number] Miscellaneous - Marisol Marques C.N.P., R.N. - 02/11/2017 10:38 AM CDT Ambulatory Patient Summary [facility] [address] [facility], [address] [place], [place] [phone] Visit Information Name: PUNEET CLAYTON [facility] Number: [id number] Current Date: 02/11/2017 10:38:55 Physicians Attending Provider: MARISOL MARQUES CNP, striper machine Provider: CATRACHO NAZARIO PA-C PUNEET CLAYTON has [...] water with a slice of lemon or umatilla tribe (these can also help ease an [...] light tuna, salmon, pollock, and catfish ?? [id number] [facility], [address] [place] [address], [place] [address]. All rights reserved. This information is not [...] if you dont have one. Go to [email or web address] and click on Create Your Account. Then, follow the directions to complete the online form. Youll be asked for your [facility] number which you can find at the top of this document. Your Goals/Additional instructions: This document has images extracted. Please consider using RECUPYL for all your patient education needs. Source: [facility] POWERCHART Document Id: [id number] Miscellaneous - Cleopatra Laguerre L.P.N. - 02/11/2017 10:23 AM CDT Adult Health Editor Intake/History Adult Health Editor Intake/History Entered On: 02/11/2017 10:26 CDT Performed [...] Information Given By : Patient Languages : Belizean Is Patient Female and 13-50 no hysterectomy [...] LAGUERRE LPN - 02/11/2017 10:23 CDT Source: [facility] POWERCHART Document Id: [id number] CDT!41 documented in this encounter Plan of Treatment Not on filedocumented as of this encounter Visit Diagnoses Not on filedocumented in this encounter Additional Health Concerns Assessment Noted Time PHQ-9 Depression Total Score: 11 12/13/2014 9:50 AM CD T documented as of this encounter Care Teams Chainer Relationship Specialty Start Date End Date Catracho Bundy P.A.-C. PCP - General 02/04/17 04/26/19 documented as of this encounter
--- OUTSIDE RECORDS SUMMARY | 2022-08-03 09:44 | XMS_ITS | Encounter Summary ---
:1985 Author Organization [facility] Address [address] [place] [address] Care Team Providers Name Role Phone Catracho Bundy P.A.-C. Primary Care Provider Encounter Details Date Type Department Care Team Description 03/11/2017 Hospital Encounter [facility] Leonora Melchor, Maureen TARIQ, C.N.P. [address] [place], [place] [phone] (Wo rk) Social History [...] How often do you attend jewish or muslim More than 4 time s [...] Notes Miscellaneous - Leonora Villaseñor R.N., [facility] - 03/11/2017 3:28 PM CDT Ambulatory Discharge Medication List [facility] [address], [address] [place], [place] [phone] Visit Information Name: PUNEET COOLEY [facility] Number: [id number] Current Date: 03/11/2017 15:28:15 Attending Provider: LEONORA VILLASEÑOR R.N., [facility] Primary Care Provider: CATRACHO NAZARIO PA-C [...] WHNP-BC Signed On:11-MAR-2017 15:28:14 Additional Information: Source: [facility] POWERCHART Document Id: [id number] Miscellaneous - Leonora Villaseñor R.N., WHNP-BC - 03/11/2017 3:28 PM CDT Ambulatory Patient Summary [facility] [address], [address] [place], [place] [phone] Visit Information Name: PUNEET COOLEY [facility] Number: [id number] Current Date: 03/11/2017 15:28:15 [...] Appointments Date Time Location Provider 04/07/2017 09:00 [facility] SHEAR GRINDER OPERATOR Leonora Villaseñor NP Attention: Contact your [...] if you dont have one. Go to [email or web address] and click on Create Your Account. Then, follow the directions to complete the online form. Youll be asked for your [facility] number which you can find at the top of this document. Your Goals/Additional instructions: Source: [facility] POWERCHART Document Id: [id number] Miscellaneous - Dawna Madera L.P.NBrittaney - 03/11/2017 2:39 PM CDT Adult Manager Adobe Intake/History Adult Manager Adobe Intake/History Entered On: 03/11/2017 14:43 CDT Performed [...] MADERA L.P.N. - 03/11/2017 14:39 CDT Source: [facility] GetGifted Document Id: [id number] CDT!40 documented in this encounter Plan of [...] exposure to syp hilis. Test Performed by: [place] [id number] Specimen (Source) Anatomical Collection Method Collection Time Re ceived Time Location / / Volume Laterality Blood 03/11/2017 2:24 PM CDT Marisol Irving APRN, C.N.P. LAB BLOOD ADD-ON Performing Organization Address City/[facility] Code Phon e Number POWERCHART POWERCHART NA (ABNORMAL) CBC without Differential (03/11/2017 2:24 PM CDT) Analysis Performed At Patho logist Time Signature Leukocytes 9.6 3.5 - 10.5 POWERCHART X109L Erythrocytes 3.95 3.90 - POWERCHART 5.03 [id number] Hemoglobin 11.6 (L) 12.0 - POWERCHART 15.5 [...] C.N.P. LAB BLOOD ADD-ON Performing Organization Address City/[facility]/ZIP Code Phon e Number POWERCHART [...] C.N.P. LAB BLOOD ADD-ON Performing Organization Address City/[facility]/ZIP Code Phon e Number POWERCHART POWERCHART NA documented in this encounter Visit Diagnoses Not on filedocumented in this encounter Additional Health Concerns Assessment Noted Time PHQ-9 Depression Total Score: 11 12/13/2014 9:50 AM CD T documented as of this encounter Care Teams Oil Rig Roughneck Relationship Specialty Start Date End Date Catracho Bundy P.A.-C. PCP - General 02/04/17 04/26/19 documented as of this encounter
--- OUTSIDE RECORDS SUMMARY | 2022-08-03 09:44 | XMS_ITS | Encounter Summary ---
:1985 Author Organization [facility] Address [address] [place] [address] Care Team Providers Name Role Phone Unavailable Primary Care Provider Unavailable Encounter Details Date Type Department Care Team Description 01/13/2017 Hospital Encounter [facility] Leonora Melchor A PRN, C.N.P. [address] [place], [place] [phone] (Wo rk) Social History [...] given to the patient: Patient Education Materials: Harbor Engineer Adapting to : Second Trimester Harbor Engineer Adapting to : Second Trimester Keep up [...] schedule. Try taking shorter breaks more often. [email or web address] You Travel The second trimester may be [...] smoke. ?? Dont breathe fumes from nail bangladeshi, hair spray, cleansers, or other chemicals. ?? 4169[address]7503 [place] [address]. All rights reserved. This information is not intended as a substitute for professional medical care. Always follow your healthcare professional's instructions. This document has images extracted. Please consider using Pergunter for all your patient education needs. Source: [facility] POWERCHART Document Id: [id number] documented in this encounter Miscellaneous Notes Miscellaneous - Leonora Villaseñor R.N. - 01/13/2017 11:31 AM CDT Ambulatory Patient Summary [facility] [address] [place], [place] [phone] Visit Information Name: PUNEET COOLEY [facility] Number: [id number] Current Date: 01/13/2017 11:31:39 Physicians [...] Appointments Date Time Location Provider 02/11/2017 09:30 [facility] Ultrasound [facility] 1 02/11/2017 10:15 [facility] FOREST TECHNOLOGY PROFESSOR Marisol Irving CNP Attention: Contact your local [...] smoke. ?? Dont breathe fumes from nail bangladeshi, hair spray, cleansers, or other chemicals. ?? 3853-2039 Cecil Paez, [address] [place] [address], [place] [address]. All rights reserved. This information is not [...] if you dont have one. Go to [email or web address] and click on Create Your Account. Then, follow the directions to complete the online form. Youll be asked for your [facility] number which you can find at the top of this document. Your Goals/Additional instructions: This document has images extracted. Please consider using Pergunter for all your patient education needs. Source: [facility] POWERCHART Document Id: [id number] Miscellaneous - Leonora Villaseñor R.N. - 01/13/2017 11:31 AM CDT Ambulatory Discharge Medication List [facility] [address] [place], [address] [place], [place] [phone] Visit Information Name: COOLEYDORITAPUNEETCARRIE ALVARADO [facility] Number: [id number] Current Date: 01/13/2017 11:31:38 Attending [...] SYSTEM Signed On:13-JAN-2017 11:31:37 Additional Information: Source: [facility] POWERCHART Document Id: [id number] Miscellaneous - Cleopatra Laguerre LBrittaneyP.N. - 01/13/2017 10:18 AM CDT Adult Gerontological Nurse Practitioner Intake/History Adult Gerontological Nurse Practitioner Intake/History Entered On: 01/13/2017 10:22 CDT Performed [...] Information Given By : Patient Languages : Liberian Is Patient Female and 13-50 no hysterectomy : Yes Status : Confirmed positive Are you ? : No CLEOPATRA LAGUERRE LPN - 01/13/2017 10:18 CDT Subjective Pain Symptoms : No [facility]ERRE [facility] - 01/13/2017 10:18 CDT Dependent Habits Exposure to Tobacco Smoke : Patient smokes Smoking Status : Former smoker Tobacco 2A : Yes Tobacco Use/Currently Using : No Tobacco Use/Last 30 Days : No Tobacco Use/Last 12 months : Yes Tobacco Last Use/Month : November Tobacco Last Use/Year : 2016 Type : Other: quit 11/2016 CLEOPATRA LAGUERRE [facility] - 01/13/2017 10:18 CDT Caffeine Use Grid Caffeine Use : Current Type : Coffee, Soft drinks Frequency : Occasionally CLEOPATRA LAGUERRE [facility] 01/13/2017 10:18 CDT Recreational Drug Use Grid Drug Use : None CLEOPATRA LAGUERRE [facility] 01/13/2017 10:18 CDT Source: [employer] Document Id: [id number] CDT!42 documented in this encounter Plan of Treatment Not on filedocumented as of this encounter Visit Diagnoses Not on filedocumented in this encounter Additional Health Concerns Assessment Noted Time PHQ-9 Depression Total Score: 11 12/13/2014 9:50 AM CD T documented as of this encounter
--- OUTSIDE RECORDS SUMMARY | 2022-08-03 09:44 | XMS_ITS | Encounter Summary ---
:1985 Author Organization [facility] Address [address] [place] [address] Care Team Providers Name Role Phone Unavailable Primary Care Provider Unavailable Encounter Details Date Type Department Care Team Description 11/06/2016 Hospital Encounter [facility]X [facility] Leonora Melchor A PRN, C.N.P. [address] [place], [place] [phone] (Wo rk) Social History [...] confirmation of due to + test at [facility]. She is , they have [...] NIL G1: 1 FT Date: 01-03-2008. Location [place]. weight 7#13oz Complications high blood pressure Delivery [...] BMI 59. We discussed care here at [facility] or [place], [place]. 3) smoker, quitting. Electronically Signed By: LEONORA VILLASEÑOR CNP, RN On: 11/06/2016 12:06 PM Modified by and Electronically Signed by: LEONORA VILLASEÑOR CNP, RN On: 11/06/2016 10:46 AM Source: [facility] POWERCHART Document Id: [id number] documented in this encounter Miscellaneous Notes Miscellaneous - Leonora Villaseñor R.N. - 11/06/2016 12:02 PM CDT Ambulatory Discharge Medication List [facility] [address] [place], [address] [place], [place] [phone] Visit Information Name: PUNEET COOLEY [facility] Number: [id number] Current Date: 11/06/2016 12:02:18 Attending Provider: LEONORA VILLASEÑOR CNP surgery specialist Provider: CATRACHO NAZARIO PA-C PUNEET COOLEY [...] RN Signed On:06-NOV-2016 12:02:17 Additional Information: Source: [facility] POWERCHART Document Id: [id number] Miscellaneous - Leonora Villaseñor RMarcos. - 11/06/2016 12:02 PM CDT Ambulatory Patient Summary [facility] [address], [address] [place], [place] [phone] Visit Information Name: PUNEET COOLEY [facility] Number: [id number] Current Date: 11/06/2016 12:02:19 Physicians [...] if you dont have one. Go to [email or web address] and click on Create Your Account. Then, follow the directions to complete the online form. Youll be asked for your [facility] number which you can find at the top of this document. Your Goals/Additional instructions: Source: [facility] POWERCHART Document Id: [id number] Miscellaneous - Maurice Dozier L.PBrittaneyN. - 11/06/2016 9:09 AM CDT Adult Prepared Foods Production Team Member Intake/History Adult Prepared Foods Production Team Member Intake/History Entered On: 11/06/2016 9:13 CDT Performed On: 11/06/2016 9:09 CDT by MAURICE DOZIER LPN Intake Chief Complaint : POLICE INVESTIGATOR LMP Date : 10/03/2016 Systolic Blood Pressure [...] 11/06/2016 9:09 CDT General Info Languages : Filipino Is Patient Female and 13-50 no hysterectomy [...] DOZIER LPN - 11/06/2016 9:09 CDT [facility] Document Id: [id number] CDT!39 Miscellaneous - Maurice Dozier L.P.NBrittaney - [...] Use : No DOZIER, MAURICE Maureen [facility] - 11/06/2016 9:08 CDT Caffeine Use Grid Caffeine Use : Current Type : Coffee, Soft drinks Frequency : Occasionally MAURICE DOZIER [facility] - 11/06/2016 9:08 CDT Recreational Drug Use Grid Drug Use : None SUKH DOZIERFER Maureen [facility] - 11/06/2016 9:08 CDT Psychosocial Domestic Abuse Concerns : None Behavioral Health Screen/Safety Assmt : Unable to obtain Synagogue Preference : No qualifying data available. MAURICE DOZIER [facility] 11/06/2016 9:08 CDT Advance Directive Advanced Directives : No Advance Directive Additional Information : No MAURICE DOZIER [facility] 11/06/2016 9:08 CDT Educ Needs Learning Style Preference Adult Grid Patient : None Family : None MAURICE DOZIER [facility] 11/06/2016 9:08 CDT Source: [facility] POWERCHART Document Id: [id number] CDT!37 documented in this encounter Plan of [...]
--- OUTSIDE RECORDS SUMMARY | 2022-08-03 09:44 | XMS_ITS | Encounter Summary ---
:1985 Author Organization [facility] Address [address] [place] [address] Care Team Providers Name Role Phone Unavailable Primary Care Provider Unavailable Encounter Details Date Type Department Care Team Description 12/09/2016 Hospital Encounter HX [facility] Rabia Melchor A PRN, C.N.P. [address] [place], [place] [phone] (Wo rk) Social History [...] oxygen. G1: 1 FT Date: 01-03-2008. Location [place]. weight 7#13oz Complications high blood pressure Delivery [...] Found Sexual history Brendon, . 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 Genetic testing and screening options discussed, booklet given. She is not interested in meeting with a genetic specialist or partner screening at this time. 6) BMI 59. planning delivery at [facility]. will plan for shared care. undecided on where anatomy scan ultrasound will be, here or at [facility]. 7) smoker, quitting. down to 1-2 cigs/week Referrals: _ Electronically Signed By: RABIA REAVES CNP, RN On: 12/09/2016 10:02 AM Modified by and Electronically Signed by: RABIA REAVES CNP RN On: 12/09/2016 10:02 AM Source: [facility] POWERCHART Document Id: [id number] documented in this encounter Nursing Notes Dawna [...] Medical ; Code: 305.1 ; Contributor System: GTI ; Last Updated: 12/12/2014 9:21 CDT ; [...] Medical ; Code: 784.0 ; Contributor System: SilvigenChart ; Last Updated: 12/12/2014 9:11 CDT ; [...] RABIA HOLMAN MD; Vocabulary: ICD-9-CM (SNOMED CT :612172879 ) Name of Problem: ; Onset Date: 10/03/2016 ; Recorder: DAWNA MADERA L.P.N.; Confirmation: Confirmed ; Classification: Medical ; Code: 085688413 ; Last Updated: 12/09/2016 8:32 CDT ; Life Cycle Status: Active ; Responsible Provider: DAWNA MADERA L.P.N.; Vocabulary: SNOMED CT Diagnoses(Active) Date: 12/09/2016 ; Confirmation: Confirmed ; Clinical Dx: ; Classification: Medical ; Code: SNOMED CT ; Probability: 0 ; Diagnosis Code: 388807147 - Procedure History (As Of: 12/09/2016 09:09:45 [...] Medical ; Code: 346.90 ; Contributor System: GTI ; Last Updated: 12/12/2014 9:11 CDT ; Life Cycle Status: Active ; Responsible Provider: RABIA HOLMAN MD; Vocabulary: ICD-9-CM Headache Name of Problem: Headache ; Onset Date: 10/24/2007 ; Confirmation: Confirmed ; Classification: Medical ; Code: 784.0 ; Contributor System: SilvigenChart ; Last Updated: 12/12/2014 9:11 CDT ; LifeCycle Status: Active ; Vocabulary: ICD-9-CM ; Comments: - Headache Dysthymic Disorder Name of Problem: Dysthymic Disorder ; Onset Date: 08/01/2010 ; Confirmation: Confirmed ; Classification: Medical ; Code: 300.4 ; Contributor System: SilvigenChart ; Last Updated: 12/12/2014 9:11 CDT ; Life Cycle Status: Active ; Vocabulary: ICD-9-CM ; Comments: - Dysthymic disorder Name of Problem: ; Recorder: NICHOLE ADDISON; Confirmation: Confirmed ; Classification: Medical ; Code: 524261859 ; Last Updated: 12/12/2014 9:12 CDT ; [...] Comments: 03/13/2014 13:47 - JORY COPPOLA 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 DAWNA [...] CNP, SHRUTHI - 12/09/2016 10:03 CDT Source: [facility] POWERCHART Document Id: [id number] CDT!27 documented in this encounter Miscellaneous Notes Miscellaneous - Rabia Reaves R.N., [facility]- - 05/20/2017 9:10 AM CDT RE: From: RABIA REAVES R.N. [facility] To: PUNEET CLAYTON Sent: 05/20/2017 09:10:24 [...] From: PUNEET CLAYTON To: RABIA REAVES R.N. [facility] Sent: 05/19/2017 4:41:33 PM ([facility]-06:00) Central Time ([place] & [place]) Subject: RE: Should it hurt to walk though and when I move? From: RABIA REAVES R.N. [facility] To: PUNEET CLAYTON Sent: 05/19/2017 16:18:07 CDT Subject: RE: As you get closer to the end of the , it is not uncommon to have increased pelvic or vaginal pressure. If you have noticed a significant change in how you feel though, you should come in to beseen. From: PUNEET CLAYTON To: RABIA REAVES R.N. [facility] Sent: 05/19/2017 12:08:54 PM ([facility]-06:00) Central Time ([place] & [place]) Subject: [...] questions. have a good day! Rabia Source: [facility] POWERCHART Document Id: [id number] Miscellaneous - Rab[facility]aves R.N., [facility] - 05/19/2017 4:18 PM CDT RE: From: RABIA REAVES R.N. [facility] To: PUNEET CLAYTON Sent: 05/19/2017 16:18:07 CDT Subject: RE: As you get closer to the end of the , it is not uncommon to have increased pelvic or vaginal pressure. If you have noticed a significant change in how you feel though, you should come in to beseen. From: PUNEET CLAYTON To: RABIA REAVES R.N. [facility] Sent: 05/19/2017 12:08:54 PM ([facility]-06:00) Central Time ([place] & [place]) Subject: [...] questions. have a good day! Rabia Source: [facility] [employer] Document Id: [id number] Miscellaneous - Rabia Reaves R.N. - 12/15/2016 [...] questions. have a good day! Rabia Source: [employer] Document Id: [id number] Electronically signed by Roland [facility] Hospitalguillermo Winch Driver [id number] at 02/02/2017 12:38 PM CDT Leilani - [...] x10(9)/L (150 - 450) 12/09/2016 10:15 Syphilis IgG-[place] Negative (Negative - ) 12/09/2016 10:15 HIV 1/2 Ab and Ag Scrn-[place] Negative (Negative - ) 12/09/2016 10:15 Rubella IgG-[place] Equivocal 12/09/2016 10:15 Rubella IgG Ab Index-[place] 0.9 12/09/2016 10:15 Hep Bs Ag-[place] Negative (Negative - ) 12/09/2016 09:45 C trach Amp Src-[place] vagina 12/09/2016 09:45 C trach Amp RNA-[place] Negative (Negative - ) 12/09/2016 09:45 N gonor Amp DNA-[place] Negative (Negative - ) 12/09/2016 09:45 N gonor Amp Src-[place] vagina 12/09/2016 09:45 UA Color Yellow (Colorless [...] (*) Present (None Seen - ) Source: [facility] Document Id: [id number] Electronically signed by Conversion, [facility] HospitalTelller Winch Driver [id number] at 02/02/2017 12:38 PM CDT Miscellaneous - Rabia Reaves R.N. - 12/11/2016 1:15 PM CDT Normal Results Letter December 11, 2016 PUNEET CLAYTON [address] [facility] [id number] Dear PUNEET CLAYTON, Your Pap was normal. Your next pap is due in 3 yrs. Please contact me if you have any questions. Result Name Current Result SAMPLE PREPARATION SUPERVISOR Cytology 12/09/2016 Sincerely, RABIA REAVES [address] [place] [address] Electronic Signature Electronically Signed By: RABIA REAVES CNP, RN On: December 11, 2016 This document has images extracted. Source: [facility] [employer] Document Id: [id number] Miscellaneous - Rabia Reaves, R.N. - 12/09/2016 10:04 AM CDT Ambulatory Patient Summary [facility] [address] [place], [address] [place], [place] [phone] Visit Information Name: FORREST PUNEET ALVARADO [facility] Number: [id number] Current Date: 12/09/2016 10:04:46 Physicians Attending Provider: RABIA REAVES CNP, appraiser Provider: CATRACHO NAZARIO PA-C PUNEET CLAYTON has [...] if you dont have one. Go to [email or web address] and click on Create Your Account. Then, follow the directions to complete the online form. Youll be asked for your [facility] number which you can find at the top of this document. Your Goals/Additional instructions: Source: [facility] POWERCHART Document Id: [id number] Leilani - Rabia Reaves R.N. - 12/09/2016 10:04 AM CDT Ambulatory Discharge Medication List [facility] [address], [address] [place], [place] [id number] Visit Information Name: PUNEET CLAYTON [facility] Number: [id number] Current Date: 12/09/2016 10:04:45 Attending Provider: RABIA REAVES CNP, appraiser Provider: CATRACHO NAZARIO PA-C PUNEET CLAYTON has [...] RN Signed On:09-DEC-2016 10:04:43 Additional Information: Source: [facility] POWERCHART Document Id: [id number] Leilani - Alison Monsivais L.P.N. - 12/09/2016 9:48 AM CDT Drapery Hanger Documentation Drapery Hanger Documentation Entered On: 12/09/2016 9:48 CDT Performed On: 12/09/2016 9:48 CDT by ALISON MONSIVAIS LPN [employer] Documentation Exam/Procedure Performed : pelvic CD Drapery Hanger Present : Yes CD Drapery Hanger Name : ALISON Randall LPN - 12/09/2016 9:48 CDT Source: [facility] POWERCHART Document Id: [id number] CDT!5 documented in this encounter Plan of [...] procedure are in the results section. PATHOLOGY SAMPLE PREPARATION SUPERVISOR Routine 12/09/2016 9:37 AM Results for this CYTOLOGY CDT procedure are i n the results section. documented in this encounter Results CBC without Differential (12/09/2016 10:15 AM CDT) P athologist Signature Leukocytes 7.7 3.5 - 10.5 POWERCHART X109L Erythrocytes 4.88 3.90 - 5.03 POWERCHART Z5706F Hemoglobin 13.7 12.0 - 15.5 POWERCHART GDL [...] exposure to syp hilis. Test Performed by: [address] [address] Specimen (Source) Anatomical Collection Method Collection Time Re ceived Time Location / / Volume Laterality Blood 12/09/2016 10:15 AM CDT Rabia Reaves APRN, C.N.P. LAB BLOOD ADD-ON Performing Organization Address City/State/[facility] Code Phon e Number POWERCHART Rubella Antibodies, IgG (12/09/2016 10:15 AM CDT) Analysis Performed At Patho logist Time Signature HX Rubella Equivocal POWERCHART IgG-[place] Comment: Recommend follow-up testing in 10-14 day s if clinically indicated. REFERENCE VALUE------ Vaccinated: Positive (>=1.0 AI) Unvaccinated: Negative (<=0.7 AI) Rubella IgG Antibody Index 0.9 POW ERCHART Comment: Test Performed by: [facility] [address] [place] [address] Specimen (Source) Anatomical Collection Method Collection Time Re ceived Time Location / / Volume Laterality Blood 12/09/2016 10:15 AM CDT Rabia Reaves APRN, C.N.P. LAB MICROBIOLOGY - BLOOD ORD ERABLES Performing Organization Address [facility] Phon e Number POWERCHART HIV-1/-2 Ag and Ab Screen (12/09/2016 10:15 AM CDT) athologist Signature HIV-1/-2 Negative Negative POWERCHART Antibody Comment: Negative result does not rule out HIV in fection. If acute HIV infection is suspected in a hi gh-risk individual, submit plasma specimen for H IV-1 RNA quantification test (HIVDQ) and/or HIV-2 DNA/RNA test (FHV2Q). Test Performed by: [address] [address] Specimen (Source) Anatomical Collection Method Collection Time Re ceived Time Location / / Volume Laterality Blood 12/09/2016 10:15 AM CDT Rabia Reaves APRN, C.N.P. LAB MICROBIOLOGY - BLOOD ORD ERABLES Performing Organization Address City/[facility] Phon e Number POWERCHART Hepatitis B Surface Antigen (12/09/2016 10:15 AM CDT) P athologist Signature HBs Antigen, S Negative Negative POWERCHART Comment: Test Performed by: [facility] [address] [place] [id number] Specimen (Source) Anatomical Collection Method Collection Time [...] C.N.P. LAB BLOOD ADD-ON Performing Organization Address City/[facility]/ZIP Code Phon e Number POWERCHART ABSC GEL (12/09/2016 10:15 AM CDT) [facility] gist Method Time Signature HX ABSC Gel Negative ABSC POWERCHART Specimen (Source) Anatomical Collection Method Collection Time Re ceived Time Location / / Volume Laterality 12/09/2016 10:15 AM CDT Rabia Apollo Jean Paul RIVERO C.N.P. LAB HISTORICAL ORDERS Performing Organization Address City/[facility]/ZIP Code Phon e Number POWERCHART ABO/Rh (12/09/2016 10:15 AM CDT) athologist Signature ABORh Interp A NEG POWERCHART Specimen (Source) Anatomical Collection Method Collection Time Re ceived Time Location / / Volume Laterality 12/09/2016 10:15 AM CDT Rabia Bustillos Kendal Reaves APRNNBrittaneyPBrittaney LAB BLOOD BANK TEST ORDERABL ES Performing Organization Address [facility]/ZIP Code Phon e Number POWERCHART HX-N gonor Amp DNA (12/09/2016 9:45 AM CDT) P athologist Signature HXN gonor Amp Negative POWERCHART DNA-[place] Specimen (Source) Anatomical Collection Method Collection Time Re ceived Time Location / / Volume Laterality 12/09/2016 9:45 AM CDT Narrative POWERCHART - 12/10/2016 4:54 PM CDT ADDITIONAL INFORMATION This report is intended for use in clini huma monitoring and management of patients. It is not in tended for use in medical-legal applications. Test Performed by: [facility] - [address] [address] Kendal Erazo APRNN.Marcio LAB HISTORICAL ORDERS Performing Organization Address City/[facility]/ZIP Code Phon e Number POWERCHART HX-N gonor Amp Src (12/09/2016 9:45 AM CDT) P athologist Signature HXN gonor Amp vagina POWERCHART Src-[place] Specimen (Source) Anatomical Collection Method Collection Time Re ceived Time Location / / Volume Laterality 12/09/2016 9:45 AM CDT Kendal Erazo APRNN.P. LAB HISTORICAL ORDERS Performing Organization Address City/[facility] Code Phon e Number POWERCHART HX-C trach Amp RNA (12/09/2016 9:45 AM CDT) [facility] gist Method Time Signature Chlamydia Negative [...] APRNN.P. LAB HISTORICAL ORDERS Performing Organization Address City/[facility]/ZIP Code Phon e Number POWERCHART HX-C trach Amp Src (12/09/2016 9:45 AM CDT) P athologist Signature HXC trach Amp vagina POWERCHART Src-[place] Specimen (Source) Anatomical Collection Method Collection Time Re ceived Time Location / / Volume Laterality 12/09/2016 9:45 AM CDT Rabia Reaves APRN C.N.P. LAB HISTORICAL ORDERS Performing Organization Address City/[facility]/ZIP Code Phon e Number POWERCHART (ABNORMAL) Bacterial Culture, Aerobic, Urine (12/09/2016 9:45 AM CDT) Patholo gist Method Time Signature Bacterial EC Susceptibl POWERCHART Culture, (POSITIVE) Aerobic, Urine HXPre URINE, CLEAN POWERCHART VOID HXPre Pending POWERCHART HXPre Pending-[facility] [address] [place] [phone] Comment: URINE, CLEAN VOID Pending Pending-[facility] [address] [place] [address] HXPre URINE, CLEAN VOID POWERCHART HXPre >[id number] COL/ML ESCHERICHIA COLI POWERCHART HXPre >[id number] COL/ML MULTIPLE ORGANISMS SUGGESTING PROBABLE POWERCHART CONTAMINATION HXPre PRELIMINARY, FINAL RESULT TO FOLLOW POWERCHART HXPre Pending-[facility] POWERCHART [address] [place] [phone] Comment: URINE, CLEAN VOID >[id number] COL/ML ESCHERICHIA COLI >276605 COL/ML MULTIPLE ORGANISMS SUGGES TING PROBABLE CONTAMINATION PRELIMINARY, FINAL RESULT TO FOLLOW Pending-[facility] [address] [place] [address] HXFinal EC POWERCHART Comment: URINE, CLEAN VOID >[id number] COL/ML ESCHERICHIA COLI >190423 COL/ML MULTIPLE ORGANISMS SUGGES TING PROBABLE CONTAMINATION FINAL 12/12/2016-[facility] [address] [place] [address] Escherichia coli Specimen (Source) Anatomical Collection Method [...] - GENERAL O RDERABLES Performing Organization Address City/[facility] Phon e Number POWERCHART (ABNORMAL) Urinalysis, Complete, Includes Microscopic (12/09/2016 9:45 AM CDT) [facility] Method Time Signature HXUr Color [...] Leukocyte Esterase Large (A) Negative POWERCHART Specific [place], POCT, U 1.021 ELANA RCHART Comment: Reference Range Specific [place]: 1.000-1.035 HXUR WBC. 4-10 None Seen HPF [...] LAB URINE ORDERABLES Performing Organization Address [facility] Phon e Number POWERCHART Pathology SAMPLE PREPARATION SUPERVISOR Cytology (12/09/2016 9:37 AM CDT) Specimen (Source) Anatomical Collection Method Collection Time Re ceived Time Location / / Volume Laterality 12/09/2016 9:37 AM CDT Narrative LUZ ELENA MAXWELL - 12/11/2016 11:20 AM CD T Pat: PUNEET CLAYTON ?([id number]) Age/Sex: 30 ??F ??Loc: ? -00 (RWN ) CoPath ??LIUDMILA: 12/09/16 09:37 ??REC: 16:00 ??PHYS: , Cytology ?ThinPrep cervical/endocerv Patient Name: PUNEET CLAYTON MR#: [id number] Submitting Physician: RABIA REAVES IMPORT/EXPORT AGENT ??[id number] Specimen #[id number] Performing Lab: ??[address] [address] CLINICAL HISTORY: Last menstrual period: Status: Specimen [...] results have been experie nced. Rabia Reaves EXCEPTIONAL CHILDREN'S TEACHER, C.N.P. LAB PAP COPATH ORDERABLES Performing Organization Address City/State/ZIP Code Phon e Number LUZ ELENA MAXWELL documented in this encounter Visit Diagnoses Not on filedocumented in this encounter Additional Health Concerns Assessment Noted Time PHQ-9 Depression Total Score: 11 12/13/2014 9:50 AM CD T documented as of this encounter
--- OUTSIDE RECORDS SUMMARY | 2022-08-03 09:44 | XMS_ITS | Encounter Summary ---
:1985 Author Organization [facility] Address [address] [place] [address] Care Team Providers Name Role Phone Blaire Bundy P.A.-C. Primary Care Provider [phone] Encounter Details Date Type Department Care Team Description 02/11/2017 Hospital Encounter HX [facility] Marisol Irving APRN, C.N.P. [address] [place] [address] (Wo rk) Social History Tobacco [...] How often do you attend anabaptism or cheondoism More than 4 time s [...] Coding Summary-Paper Based CODING DATE: 02/16/2017 FINAL [facility] STATUS: * Discharged to [...] ROLDAN Date Saved: 02/16/2017 11:30 am Source: [facility] POWERCHART Document Id: [id number] Miscellaneous - Marisol Irving CBrittaneyN.P., R.N. - 02/11/2017 4:33 PM CDT Addendum by SOCORRO MARK on February 12, 2017 11:37:11 CDT From: SOCORRO MARK ( Obstetrics/Gynecology Conservation Educator) To: PUNEET CLAYTON Sent: 02/12/2017 11:37:11 CDT Subject: FW: Addendum by SOCORRO MARK on February 12, 2017 11:33:42 CDT Dear Yassine Medina appointments 03/11/17 1:15 labs for glucose prep (check in at Family Practice registration) 1:30ultrasound in Radiology with a full bladder, after ultrasound back to lab for blood draw, 2:45 arrival time with Leoonra Reaves (check back in at Family Practice). If this date and time doesn't work for you please let me know. Thank you for using patient online services. Have a wonderful rest of the day, [place] Patient Access. From: MARISOL IRVING CNP, RN To: Obstetrics/Gynecology Conservation Educator; PUNEET CLAYTON Sent: 02/11/2017 16:33:06 CDT Puneet, [...] scheduled with your next appointment. Marisol Source: [facility] POWERCHART Document Id: [id number] Electronically signed by Roland, [facility] Senior Game Advisor [id number] at 02/24/2017 11:29 AM CDT documented in this encounter Plan of Treatment Not on filedocumented as of this encounter Visit Diagnoses Not on filedocumented in this encounter Additional Health Concerns Assessment Noted Time PHQ-9 Depression Total Score: 11 12/13/2014 9:50 AM CD T documented as of this encounter Care Teams Is Support Analyst Relationship Specialty Start Date End Date Blaire Bundy P.A.-C. PCP - General 02/04/17 04/26/19 documented as of this encounter
--- OUTSIDE RECORDS SUMMARY | 2022-08-03 09:44 | XMS_ITS | Encounter Summary ---
:1985 Author Organization [facility] Address [address] [place] [address] Care Team Providers Name Role Phone Unavailable Primary Care Provider Unavailable Encounter Details Date Type Department Care Team Description 11/05/2016 [facility] Venu Nguyen M.D. [address] [place], [place] [phone] (Wo rk) Social History [...] Nguyen M.D. - 11/05/2016 12:13 PM CDT [id number] Ms. Cooley is a pleasant 30-year-old accompanied [...] than a pack per week. Works at [facility] [employer]. PHYSICAL EXAMINATION GENERAL: Appears well, no distress. [...] 61, I am not sure proceeding in [place] would even be an option. She will [...] Venu Nguyen M.D./robb cc: Blaire Thornton P.A.-C. [facility] in [address] [place] [address] Electronically Signed By: VENU NGUYEN MD On: 12/01/2016 01:38 PM Source: [facility] MHSDOLBEYNONRADSYS Document Id: [id number] documented in this encounter Miscellaneous Notes Miscellaneous - Madhavi Addison R.N. 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 Intake/History Entered On: 11/05/2016 12:30 CDT Performed On: 11/05/2016 12:26 CDT by MADHAVI ADDISON stack clerk Chief Complaint : chronic sore throat, large [...] 11/05/2016 12:26 CDT General Info Languages : Iraqi Is [...] ADDISON RN - 11/05/2016 12:26 CDT Source: [facility] SERVICES[facility] Document Id: [id number] CDT!44 documented in this encounter Plan of Treatment Not on filedocumented as of this encounter Procedures Procedure Name Priority Date/Time Associated Diagnosis Comme nts RAPID STREP A Routine 11/16/2016 10:12 AM Results for this SCREEN CDT procedure are i n the results section. documented in this encounter Results Rapid Strep A Screen (11/16/2016 10:12 AM CDT) [facility] Method Time Signature HXStrep A POWERCHART [...]
--- OUTSIDE RECORDS SUMMARY | 2022-08-03 09:44 | XMS_ITS | Encounter Summary ---
:1985 Author Organization [facility] Address [address] [place] [address] Care Team Providers Name Role Phone Unavailable Primary Care Provider Unavailable Encounter Details Date Type Department Care Team Description 01/07/2017 Hospital Encounter [facility] [address] [place] [phone] (Wo rk) Social History Tobacco Use [...] How often do you attend restorationist or mandaeism More than 4 time s [...] Ordered: OV Est Pt Level 4 - 81454 - 25 min 2. Elevated Blood Pressure [...] Ordered: OV Est Pt Level 4 - 45914 - 25 min 3. High Risk NOS As per #2. Recommended f/u with OB. Ordered: OV Est Pt Level 4 - 14039 - 25 min Cough NOS Infection Urinary [...] HOLMAN MD On: 01/14/2017 06:39 AM Source: [facility] POWERCHART Document Id: [id number] documented in this encounter H&P Notes Puneet Lewis, R.N. - 01/07/2017 10:41 AM CDT Puneet Lewis RN, [employer] Nurse Practitioner Residency [...] PRN Allergies: penicillins Environmental/Occupational Conditions: Works in [employer] at a [employer]. Social History: Patient reports smoking cessation about [...] HOLMAN MD On: 01/24/2017 09:59 PM Source: [facility] [employer] Document Id: [id number] documented in this encounter Miscellaneous Notes Miscellaneous [...] care. Thanks, Puneet Lewis (DNP student) Source: [facility] [employer] Document Id: [id number] Miscellaneous - Leonora Holman M.D. - 01/07/2017 10:03 AM CDT Ambulatory Patient Summary [address] [place] [id number] Visit Information Name: PUNEET CLAYTON [facility] Number: [id number] Current Date: 01/07/2017 10:03:11 [...] have one. Go to [email or web address] and click on Create Your Account. Then, follow the directions to complete the online form. Youll be asked for your [facility] number which you can find at the top of this document. Your Goals/Additional instructions: Source: [facility] POWERCHART Document Id: [id number] Miscellrenee - Leonora Holman M.D. - 01/07/2017 10:03 AM CDT Ambulatory Discharge Medication List [address] [place] [id number] Visit Information Name: PUNEET CLAYTON [facility] Number: [id number] Current Date: 01/07/2017 10:03:10 [...] MD Signed On:07-JAN-2017 10:01:26 Additional Information: Source: [facility] POWERCHART Document Id: [id number] Leilani - Leonora Holman M.D. - 01/07/2017 10:01 AM CDT Work Excuse January 07, 2017 PUNEET CLAYTON [address] [place] [phone] Dear PUNEET CLAYTON, You were examined in [...] due to acute illness. Sincerely, LEONORA ABAD [address] [place] [address] Electronic Signature Electronically Signed By: LEONORA HOLMAN MD On: January 07, 2017 This document has images extracted. Source: [facility] [employer] Document Id: [id number] Miscellaneous - Roosevelt Louise L.P.N. - 01/07/2017 [...] LOUISE LPN - 01/07/2017 8:55 CDT Source: [facility] Document Id: [id number] CDT!8 Miscellaneous - Roosevelt Louise L.P.N. 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 Intake/History Entered On: 01/07/2017 8:54 CDT Performed On: 01/07/2017 8:51 CDT by DANI, ROOSEVELT L PSYCHOLOGY TEACHER Intake Chief Complaint : URI for 1 month Cough productive green 14-15 weeks preg Would like note to be off work DANIROOSEVELT MENDOZA Apollo PSYCHOLOGY TEACHER - 01/07/2017 8:59 CDT Temperature Core : [...] 2 inch(es), 62 inch(es)) DANIROOSEVELT MENDOZA Apollo PSYCHOLOGY TEACHER - 01/07/2017 8:51 CDT General Info Information Given By : Patient Languages : Algerian Is Patient Female and [...] LOUISE LPN - 01/07/2017 8:51 CDT Source: [facility]COM[facility] Document Id: [id number] CDT!3 documented in this encounter Plan of [...] LAB URINE ORDERABLES Performing Organization Address City/[facility] Phon e Number POWERCHART (ABNORMAL) Urinalysis, Routine (01/07/2017 9:21 AM CDT) P athologist Signature Clarity Clear Clear POWERCHART HXUr Color Yellow Colorless POWERCHART Specific 1.010 POWERCHART [place], POCT, U Comment: Reference Range Specific [place]: 1.000-1.035 pH, POCT, Urine 6.0 <5.0 POWERCHART [...] M.D. LAB URINE ORDERABLES Performing Organization Address City/State/[facility] Phon e Number POWERCHART documented in this encounter Visit Diagnoses Not on filedocumented in this encounter Additional Health Concerns Assessment Noted Time PHQ-9 Depression Total Score: 11 12/13/2014 9:50 AM CD T documented as of this encounter
--- OUTSIDE RECORDS SUMMARY | 2022-08-03 09:44 | XMS_ITS | Encounter Summary ---
:1985 Author Organization [facility] Address [address] [place] [address] Care Team Providers Name Role Phone Blaire Bundy P.A.-C. Primary Care Provider [phone] Encounter Details Date Type Department Care [...] How often do you attend quaker or druze More than 4 time s [...] documented as of this encounter Care Teams Information Systems Security Manager Relationship Specialty Start Date End Date Blaire Bundy P.A.-C. PCP - General 02/04/17 04/26/19 documented as of this encounter
--- OUTSIDE RECORDS SUMMARY | 2022-08-03 09:45 | XMS_ITS | Encounter Summary ---
:1985 Author Organization [facility] Address [address] [place] [address] Care Team Providers Name Role Phone Unavailable Primary Care Provider Unavailable Encounter Details Date Type Department Care Team Description 12/10/2015 Hospital Encounter HX [facility] Renny Castro M.D. [address] [place], [place] [address] (Wo rk) Social History [...] How often do you attend congregational or shinto More than 4 time s [...] Acuna M.D. - 12/10/2015 7:54 AM CDT [id number] CHIEF COMPLAINT/REASON FOR VISIT A 3-month history [...] ACUNA MD On: 12/11/2015 08:52 AM Source: [facility] [employer] Document Id: [id number] documented in this encounter Miscellaneous Notes Miscellaneous - Timbo Acuna M.D. - 12/10/2015 9:16 AM CDT Ambulatory Patient Summary [address] [id number] Visit Information Name: PUNEET CLAYTON [facility] Number: [id number] Current Date: 12/10/2015 09:16:05 Physicians [...] day x 14 day(s) [facility] [address] [place] [address] topiramate (topiramate 25 mg oral tablet) 2 [...] if you dont have one. Go to [email or web address] and click on Create Your Account. Then, follow the directions to complete the online form. Youll be asked for your [facility] number which you can find at the top of this document. Your Goals/Additional instructions: Source: [facility] POWERCHART Document Id: [id number] Miscellaneous - Timbo Acuna M.D. - 12/10/2015 9:16 AM CDT Ambulatory Discharge Medication List [address] [id number] Visit Information Name: PUNEET CLAYTON [facility] Number: [id number] Visit Date: 12/10/2015 09:16:04 Attending [...] day x 14 day(s) New Routed to [address] [address] topiramate (topiramate 25 mg oral tablet) 2 [...] Signed By: Signed On: Additional Information: Source: [facility] POWERCHART Document Id: [id number] Miscellaneous - Abimbola Perry L.P.N. 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
--- OUTSIDE RECORDS SUMMARY | 2022-08-03 09:45 | XMS_ITS | Encounter Summary ---
:1985 Author Organization [facility] Address [address] [place] [address] Care Team Providers Name Role Phone Unavailable Primary Care Provider Unavailable Encounter Details Date Type Department Care Team Description 05/04/[address] [facility] Oralia San O.D. Social History Tobacco [...] How often do you attend holiness or rastafarian More than 4 time s [...] ( ORTHO ) Current RX: Sphere Cylinder [place] Add Prism Right Eye ( -2.00 ) [...] [facility] POWERCHART Document Id: [id number] documented in this encounter H&P Notes Oralia Roach O.D. - 05/04/2014 10:37 AM CDT [id number] The patient is in today noticing some [...] given for new glasses. Trials for Acuvue [place] were dispensed along with Biotrue kit. Patient [...] [facility] MHSDOLBEYNONRADSYS Document Id: [id number] documented in this encounter Miscellaneous Notes Miscellaneous [...] if needed ) ( ) Call for Physician Assistant ( ) Follow up on Results ( ) Other: PROVIDER: ( ) Call Physician ( ) Call Pharmacist ( ) Call Lab ( ) Other: Special Instructions: Comments: Source: [facility] POWERCHART Document Id: [id number] Electronically signed by Roland [facility] Lead Application Architect [id number] at 01/19/2017 11:34 AM CDT Miscellaneous - Oralia Roahc O.D. - 05/04/2014 11:49 AM CDT Ambulatory Patient Summary [facility] [address] [place] [address] [address] [place], [place] [phone] Visit Information Name: RFIEDPUNEET CLAY CHRISTIANO [facility] Number: [id number] Current Date: 05/04/2014 11:49:30 [...] detail needed. Your Goals/Additional instructions: Source: [facility] POWERCHART Document Id: [id number] Miscellaneous - Oralia Roach O.D. - 05/04/2014 11:49 AM CDT Ambulatory Discharge Medication List [place] [facility] [address] [place], [place] [phone] Visit Information Name: PUNEET FRIED [facility] Number: [id number] Visit Date: 05/04/2014 11:49:29 [...] [facility] POWERCHART Document Id: [id number] Miscellaneous - Vu Craven C.O.A. 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
--- OUTSIDE RECORDS SUMMARY | 2022-08-03 09:45 | XMS_ITS | Encounter Summary ---
:1985 Author Organization [facility] Address [address] [place] [address] Care Team Providers Name Role Phone Unavailable Primary Care Provider Unavailable Encounter Details Date Type Department Care Team Description 04/22/2015 Hospital Encounter [facility] Nicci Gutiérrez D.O. [address] [place] [address] (Wo rk) Social History Tobacco [...] How often do you attend anabaptism or jainism More than 4 time s [...] CHIEF COMPLAINT/REASON FOR VISIT consult Denys in [place]/migraine headaches daily REFERRAL SOURCE Trev Mcfarlane MD [...] year old son. 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 Rarely drinks [...] tendon reflexes (with reinforcement) Babinski: Absent Coordination: Kepexl-lb-amon is normal. AMRs are normal. Sensation: Vibratory [...] scheduled to have a sleep study in [place] to evaluate whether this may be a [...] # 60 tab(s), 5 Refill(s), Maintenance, Pharmacy: [id number] Orders: SUMAtriptan, 100 mg = 1 tab(s), PO, As Directed, PRN Migraine headache, Take 1 tablet at onset of headache. Repeat after two hours if needed., # 18 tab(s), 5 Refill(s), Maintenance, Pharmacy: [facility] [id number] FOOTNOTES [1]MR Brain w/ + w/o contrast; CATHI MONTIEL 03/20/2015 10:30 CDT Electronically Signed By: MARIAELENA GUTIÉRREZ DO On: 04/22/2015 12:01 PM Source: [facility] [employer] Document Id: [id number] documented in this encounter Nursing Notes Mariaelena Gutiérrez D.O. - 04/22/2015 11:30 AM CDT Ambulatory Patient Education The following Patient Education Materials have been given to the patient: Patient Education Materials: Source: [facility] [employer] Document Id: [id number] documented in this encounter Miscellaneous Notes Miscellaneous - Mariaelena Gutiérrez D.O. - 04/22/2015 11:30 AM CDT Ambulatory Patient Summary [facility] [address], [address] [place], [place] [phone] Visit Information Name: PUNEET FRIED [facility] Number: [id number] Current Date: 04/22/2015 11:30:34 Physicians Attending Provider: MARIAELENA GUTIÉRREZ DO Primary Care Provider: ALISON LOREDO PA-C FARIHA PUNEET ALVARADO has been given the following list of follow-up instructions, medication list, and patient education materials: Follow-up Instructions With: Address: When: MARIAELENA GUTIÉRREZ [address] [place] [address] [place] [address] [employer] (1) In 3 months 07/22/2015 Comments: Do [...] if needed. This is a CHANGE Routedto [place] [address] [place] [id number] topiramate (topiramate 25 mg oral tablet) 2 Tablet(s), Oral, once a day 1 tab at bedtime x 3 days, then 1 2x day x 3 days, then 1 in AM and 2 HS x 3 days, then 2 tabs 2x day New Routed to [place] [address] [place] [id number] Stop Taking [...] of this document. Your Goals/Additional instructions: Source: [facility] POWERCHART Document Id: [id number] Miscellaneous - Mariaelena Gutiérrez D.O. - 04/22/2015 11:30 AM CDT Ambulatory Discharge Medication List [facility] [address], [address] [place], [place] [phone] Visit Information Name: PUNEET FRIED [facility] Number: [id number] Visit Date: 04/22/2015 11:30:32 Attending [...] if needed. This is a CHANGE Rout[address]to [place] [address] [place] [id number] topiramate (topiramate 25 mg oral tablet) 2 Tablet(s), Oral, once a day 1 tab at bedtime x 3 days, then 1 2x day x 3 days, then 1 in AM and 2 HS x 3 days, then 2 tabs 2x day New Routed to [place] [address] [place] [id number] Stop Taking the Following Medications: EPINEPHrine (EpiPen [...] DO Signed On:22-APR-2015 11:29:21 Additional Information: Source: [facility] POWERCHART Document Id: [id number] Miscellaneous - Sima Mccormick, LiorPBrittaneyN. 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 Intake/History Entered On: 04/22/2015 10:47 CDT Performed On: 04/22/2015 10:39 CDT by SIMA MCCORMICK LPN Intake Chief Complaint : consult Lagalwar in [place]/migraine headaches daily Temperature Core : 35.8 DegC(Converted [...] MCCORMICK LPN - 04/22/2015 10:39 CDT Source: [facility] [employer] Document Id: [id number] CDT!54 documented in this encounter Plan of Treatment Not on filedocumented as of this encounter Visit Diagnoses Not on filedocumented in this encounter Additional Health Concerns Assessment Noted Time PHQ-9 Depression Total Score: 11 12/13/2014 9:50 AM CD T documented as of this encounter
--- OUTSIDE RECORDS SUMMARY | 2022-08-03 09:45 | XMS_ITS | Encounter Summary ---
:1985 Author Organization [facility] Address [address] [place] [address] Care Team Providers Name Role Phone Unavailable Primary Care Provider Unavailable Encounter Details Date Type Department Care Team Description 03/02/2015 Hospital Encounter [facility] Berny Llamas M.D. [address] [place], [place] [phone] (Wo rk) Social History [...] How often do you attend denominational or temple More than 4 time s [...] 03/02/2015 10:41 PM CDT ED Discharge Instructions [address] [place] [address] Name: PUNEET FRIED Date of : 1985 12:00 AM Visit Date: 03/02/2015 10:12 PM [facility] Number: [id number] Address: [address] [place] [phone] Primary Care Provider: ALISON MONACO PA-C IMPORTANT: [facility] would like to thank you for allowing us to assist you with your healthcare needs. The following includes patient education materials and information regarding your injury/illness. Diagnosis: Strep Throat Pharyngitis Follow-Up Instructions: With: Address: When: ALISON MONACO [address] [place] [address] Business (1) In 2 days 03/04/2015 Comments: [...] with strep throat more comfortable: Try soft, fmbe-lu-mbfkvaf foods, such as soup, applesauce, and yogurt. [...] ?? Shortness of breath ?? Rash ?? [phone] Cecil Paez, [address] [place] [address], [place] [address]. All rights reserved. This information is not [...] document has images extracted. Please consider using [employer] for all your patient education needs. Source: [facility] POWERCHART Document Id: [id number] Kavitha Saha R.N. - 03/02/2015 10:41 PM CDT ED Depart Summary [facility] Emergency Department Clinical Discharge Summary PERSON INFORMATION Name PUNEET FRIED Age 29 Years 1985 12:00 AM Sex Female Language Guatemalan PCP ALISON MONACO PA-C Marital Status Single Visit Id Visit Reason Facial swelling; UC - Sore Throat; sore throat, facial swelling Specialty Enc Type Emergency Med Service Emergency Medicine Referred by Track Group [facility] ED Discharge 03/02/2015 10:35 PM Tracking Id [id number] Checkout 03/02/2015 10:35 PM Checkin 03/02/2015 10:12 PM Acuity 3 -Urgent Dispo Type * Discharged to Home or Self Care Arrival 03/02/2015 10:12 PM Reg Status Complete LOS 000 00:23 Address: [address] [place] [phone] Comment: PROVIDER INFORMATION Provider Role Provider Contact Time KAVITHA SAHA BULK DRIVER Nurse 03/02/15 22:16 BERNY GARCIA MD ED Provider 03/02/15 22:17 DIAGNOSIS Strep Throat Pharyngitis Comment: PATIENT EDUCATION INFORMATION Instructions: Strep Throat Follow up: With: Address: When: ALISON MONACO [address] [place] [phone] Business (6) In 2 days 03/04/2015 Comments: For recheck if not resolving Source: [employer] Document Id: [id number] documented in this encounter ED Notes Kavitha [...] SAHA RN - 03/02/2015 22:40 CDT Source: [employer] Document Id: [id number] CDT!9 Berny Garica M.D. - 03/02/2015 10:18 PM CDT Throat [...] and with a positive rapid strep in [place] 2 days ago. She is on Keflex [...] Headache Abuse Tobacco Smoking NOS (305.1) Resolved ([id number]): Resolved on 01/03/2008 at 22 years.. Surgical history: Pap smear ([id number]) on 01/25/2013 at 27 Years. Pap smear ([id number]) on 01/25/2013 at 27 Years.. Family history: [...] Headache / V22.2 / Confirmed Resolved: / [id number]. Physical Examination Vital Signs: Vital Signs 03/02/2015 [...] Stable. Disposition: Discharged: to home. Prescriptions: Prescription [facility]: Zithromax (Order Processing): 500 mg, PO, Once, Prescription [facility]: Zithromax 250 mg oral tablet (Prescribe): [...] GARCIA MD On: 03/02/2015 10:28 PM Source: [facility] [employer] Document Id: [id number]} Kavitha Saha RBrittaneyN. - 03/02/2015 10:17 PM [...] Medical ; Code: 305.1 ; Contributor System: [employer] ; Last Updated: 12/12/2014 9:21 CDT ; [...] Medical ; Code: 784.0 ; Contributor System: [employer] ; Last Updated: 12/12/2014 9:11 CDT ; Life Cycle Status: Active ; Vocabulary: ICD-9-CM ; Comments: - Headache Headache Migraine (ICD-9-CM :346.90 ) Name of Problem: Headache Migraine ; Onset Date: 01/21/2012 ; Recorder: RABIA NATHAN MD; Confirmation: Confirmed ; Classification: Medical ; Code: 346.90 ; Contributor System: [employer] ; Last Updated: 12/12/2014 9:11 CDT ; [...] PNED ; Probability: 0 ; Diagnosis Code: [id number] UC - Sore Throat Date: 03/02/2015 ; Diagnosis Type: Reason For Visit ; Confirmation: Complaint of ; Clinical Dx: UC - Sore Throat ; Classification: Medical ; Clinical Service: Emergency medicine ; Code: PNED ; Probability: 0 ; Diagnosis Code: [id number] Triage Chief Complaint Description : diagnosed with strep on Tues, on Keflex and Prednisone. today left side of face swollen in am, feels like something lodged in throat, hurts to turn head to left Information Given By : Patient Accompanied By : Alone Mode of Arrival ED : Private vehicle, Ambulatory Track : Medical Languages : Guatemalan Patient Informed of Triage Location : Emergency [...] Acuity : 3 -Urgent Tracking Group : [facility] ED KAVITHA SAHA SHRUTHI 03/02/2015 22:17 [...] SAHA RN - 03/02/2015 22:17 CDT Source: [employer] Document Id: [id number] CDT!84 documented in this encounter Miscellaneous Notes Miscellaneous - Conversion, Historical Provider Ser - 03/02/2015 10:35 PM CDT Coding Summary-Paper Based CODING DATE: 03/14/2015 FINAL [facility] STATUS: * Discharged to Home or Self Care PAYOR: [facility] ADMIT DX: [id number] Acute Pharyngitis REASON FOR [...] SORTO Date Saved: 03/14/2015 02:40 pm Source: [employer] Document Id: [id number] Miscellaneous - Kavitha Saha R.N. - 03/02/2015 [...] SAHA RN - 03/02/2015 22:40 CDT Source: [employer] Document Id: [id number] CDT!8 Miscellaneous - Kavitha Saha R.N. - [...] Control : 5 Lynx Visit Level : 92641 Level 2 Treatments Prior to Arrival : Home treatments KAVITHA SAHA RN - 03/02/2015 22:40 CDT Source: [employer] Document Id: [id number] CDT!18 documented in this encounter Plan of Treatment Not on filedocumented as of this encounter Visit Diagnoses Not on filedocumented in this encounter Additional Health Concerns Assessment Noted Time PHQ-9 Depression Total Score: 11 12/13/2014 9:50 AM CD T documented as of this encounter
--- OUTSIDE RECORDS SUMMARY | 2022-08-03 09:45 | XMS_ITS | Encounter Summary ---
:1985 Author Organization [facility] Address [address] [place] [address] Care Team Providers Name Role Phone Unavailable Primary Care Provider Unavailable Encounter Details Date Type Department Care Team Description 01/06/2016 Hospital Encounter HX [facility] Ashwin Bundy, P.A.-C. [address] [place], [place] [phone] (Wo rk) Social History Tobacco Use Types [...] Ordered: OV Est Pt Level 4 - 33886 - 25 min Total time spent 25 minutes, 15 minutes counseling the patient regarding sun care for skin (no tanning beds, cover when in the sun and wear sun screen) and performing the above procedure. Electronically Signed By: CATRACHO NAZARIO P.A.-C. On: 01/08/2016 07:59 AM Source: [employer] POWERCHART Document Id: [id number] documented in this encounter Miscellaneous Notes Miscellaneous [...] Patient ( ) ( ) Call for Transition Manager ( ) Follow up on Results ( ) Other: PROVIDER: ( ) Call Physician ( ) Call Pharmacist ( ) Call Lab ( ) Other: Special Instructions: Comments: Source: [facility] POWERCHART Document Id: [id number] Electronically signed by Roland, [facility] Heater Engineer Helper [id number] at 01/16/2017 3:01 PM CDT Miscellaneous - [...] Name Value 01/06/2016 09:25 Surg IV Accn-[place] [id number] 01/06/2016 09:25 Surg IV Addr-[place] See Comment 01/06/2016 09:25 Surg IV FnlDiag-[place] See Comment 01/06/2016 09:25 Surg IV Ref-[place] See Comment 01/06/2016 09:25 Surg IV SgnPath-[place] See Comment 01/06/2016 09:25 Surg IV Ts Desc-[place] See Comment [facility] Document Id: [id number] Leilani - Jude Cardona LBrittaneyP.N. 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 : No JUDE CARDONA DIRECTOR OF SPECIAL EDUCATION - 01/06/2016 8:25 CDT Subjective Pain Symptoms : No JUDE CARDONA [facility] - 01/06/2016 8:25 CDT Dependent Habits [...] JUDE CARDONA LPN 01/06/2016 8:25 CDT Source: [facility] clickworker GmbHCHART Document Id: [id number] CDT!40 documented in this encounter Plan of Treatment Not on filedocumented as of this encounter Procedures Procedure Name Priority Date/Time Associated Diagnosis Comme [facility] SURGICAL PATHOLOGY Routine 01/06/2016 9:25 AM Res ults for this CDT procedure are i n the results section. documented in this encounter Results Pathology Anatpath Wet Tissue (01/06/2016 9:25 AM CDT) [facility] Method Time Signature HXSurg IV [id number] POWERCHART [facility] HXSurg IV See Comment POWERCHART Ref-[place] Comment: RESULT: Eusebio Nathan HXSurg IV [facility] See Comment POWERCHA RT Comment: [facility] [facility] [address] [place] [address] SLIDE DISPOSITION: HXSurg IV [facility] See Comment POWER CHART Comment: [id number] A1 A. Received in formalin labeled with [...] nape of neck [facility]RSR [facility] POWER CHART Comment: A. ??Skin, right neck, punch biopsy: ??L jacqueline irene. Participated in interpretation: Dr. Blane Shepherd. Pager: [phone]. As the signing pathologist, I verify fidelina t I have examined all relevant slides/materials for the specim en(s) and rendered or confirmed the diagnosis. HXSurg IV [facility] See Comment POWER CHART Comment: RESULT: 01/08/2016 15:55 Interpreted by: Lucas Lucia M.D. Report electronically signed by Lucas grey M.D. Transcribed by: amelia 01/08/2016 15:17:34 Test Performed by: [address] [address] Caisson Worker: Rubio Marshall II, M.D., Ph.D. Specimen (Source) [...]
--- OUTSIDE RECORDS SUMMARY | 2022-08-03 09:45 | XMS_ITS | Encounter Summary ---
:1985 Author Organization [facility] Address [address] [place] [address] Care Team Providers Name Role Phone Unavailable Primary Care Provider Unavailable Encounter Details Date Type Department Care Team Description 01/15/2016 Hospital Encounter [facility]X [facility] Kyle Colmenares M .D., M.P.H. [address] [place], [place] [phone] (Wo rk) Social History [...] How often do you attend latter-day or nondenominational More than 4 time s [...] HINDS RN On: 01/15/2016 10:21 AM Source: [facility] POWERCHART Document Id: [id number] documented in this encounter Plan of Treatment [...] M.Tuberculos-M piyush HXTB Ag 0.00 INTUML POWERCHART Value-[place] Comment: ADDITIONAL INFORMATIO N This is a [...] Test Performed by: [facility] [place] [id number] Supervisor Fish Hatchery: Rubio Marshall II, M.D., Ph.D. Specimen (Source) Anatomical Collection Method Collection Time Re ceived Time Location / / Volume Laterality Blood 01/15/2016 10:39 AM CDT Kyle Coleman M.D., M.P.H. LAB MICROBIOLOGY - BLOOD O BOBBY Performing Organization Address [facility] Phon e Number POWERCHART Mumps Ab, IgG (01/15/2016 10:39 AM CDT) P athologist Signature Mumps Ab, IgG, Positive POWERCHART S Comment: Results suggest response to immunization or prior exposure to the virus. REFERENCE VALUE------ Vaccinated: Positive (>=1.1 AI) Unvaccinated: Negative (<=0.8 AI) Mumps Ab, IgG, S 3.3 POWERCHART Comment: Test Performed by: [place] [address] Supervisor Fish Hatchery: Rubio Marshall II MTomeka, Ph.D. Specimen (Source) Anatomical Collection Method Collection Time Re ceived Time Location / / Volume Laterality Blood 01/15/2016 10:39 AM CDT Kyle Coleman M.D., M.P.HBrittaney LAB MICROBIOLOGY - BLOOD O BOBBY Performing Organization Address [facility] Phon e Number POWERCHART Rubella Antibodies, IgG (01/15/2016 10:39 AM CDT) P athologist Signature HX Rubella Positive POWERCHART [facility] Comment: Results suggest response to immunization or prior exposure to the virus. REFERENCE VALUE------ Vaccinated: Positive (>=1.0 AI) Unvaccinated: Negative (<=0.7 AI) Rubella IgG Antibody Index 1.2 [facility] Comment: Test Performed by: [place] [id number] Supervisor Fish Hatchery: Rubio Marshall II MTomeka, Ph.D. Specimen (Source) Anatomical Collection Method Collection Time Re ceived Time Location / / Volume Laterality Blood 01/15/2016 10:39 AM CDT Kyle Coleman M.D., M.P.H. LAB MICROBIOLOGY - BLOOD O BOBBY Performing Organization Address [facility] Phon e Number POWERCHART Measles (Rubeola) Ab, IgG (01/15/2016 10:39 AM CDT) P athologist Signature Measles Positive POWERCHART ([place]) Ab, IgG, S Comment: Results suggest response to immunization or prior exposure to the virus. REFERENCE VALUE------ Vaccinated: Positive (>=1.1 AI) Unvaccinated: Negative (<=0.8 AI) Measles IgG Antibody Index 1.4 [facility]OW [facility]RA[facility] Comment: Test Performed by: [place] [id number] Supervisor Fish Hatchery: Rubio Marshall II MTomeka, Ph.D. Specimen (Source) Anatomical Collection Method Collection Time Re ceived Time Location / / Volume Laterality Blood 01/15/2016 10:39 AM CDT Kyle Coleman M.D., M.P.H. LAB MICROBIOLOGY - BLOOD O BOBBY Performing Organization Address [facility] Phon e Number POWERCHART Varicella-Zoster Antibody, IgG (01/15/2016 10:39 AM CDT) P athologist Signature Varicella-Zost Negative POWERCHART er Ab, IgG, S Comment: REFERENCE VALUE------ Vaccinated: Positive (>=1.1 AI) Unvaccinated: Negative (<=0.8 AI) Varicella-Zoster Ab, IgG, S 0.2 PO WERCHART Comment: Test Performed by: [place] [address] Supervisor Fish Hatchery: Rubio Marshall II, M.D., Ph.D. Specimen (Source) [...]
--- OUTSIDE RECORDS SUMMARY | 2022-08-03 09:45 | XMS_ITS | Encounter Summary ---
:1985 Author Organization [facility] Address [address] [place] [address] Care Team Providers Name Role Phone Unavailable Primary Care Provider Unavailable Encounter Details Date Type Department Care Team Description 12/13/2014 Hospital Encounter [facility] Maureen Berman P.A.-C., M.S. [address] [place] [phone] (Wo rk) Social History Tobacco Use Types [...] P.A.-C., M.S. - 12/13/2014 9:40 AM CDT [id number] CHIEF COMPLAINT/REASON FOR VISIT Recheck headaches. HISTORY [...] MONACO PA-C On: 12/20/2014 09:46 AM Source: [facility] MHSDOLBEYNONRADSYS Document Id: [id number] documented in this encounter Nursing Notes Alison [...] open cavity, apply OIL OF CLOVES (available lbss-vpc-pmptwwu in drug stores) directly to the tooth to reduce pain. Some pharmacies carry an pnoz-ror-sxhyyka toothache kit. This contains a paste, which [...] tooth ?? Difficulty swallowing or breathing ?? [id number], [place] [address]. All rights reserved. This information is not intended as a substitute for professional medical care. Always follow your healthcare professional's instructions. This document has images extracted. Please consider using [employer] for all your patient education needs. Source: [facility] POWERCHART Document Id: [id number] Glen Graf L.P.N. - 12/13/2014 10:15 AM [...] GRAF LPN - 12/13/2014 10:15 CDT Source: [facility] POWERCHART Document Id: [id number] CDT!8 documented in this encounter Miscellaneous Notes [...] 3 Substitutions Allowed Route To Pharmacy - [facility] Other (See Comment) Already done. [...] 3 Substitutions Allowed Route To Pharmacy - [facility] [address] Tablet form not available. Please switch to capsule Source: [facility] POWERCHART Document Id: [id number] Miscellaneous - Alison Berman P.A.-C., M.S. - 12/13/2014 10:41 AM CDT Ambulatory Patient Summary [facility] [address], [address] Marko Fonseca [place] [id number] Visit Information Name: PUNEET FRIED [facility] Number: [id number] Current Date: 12/13/2014 10:41:40 [...] hours x 7 day(s) New Routed to [place] [address] [place] [id number] HYDROcodone-acetaminophen (Vicodin 5 mg-300 mg oral tablet) [...] after two hours if needed. Routed to [facility] [address] [place] [id number] venlafaxine (venlafaxine 37.5 mg oral tablet, extended release) 1 Tablet(s), Oral, once a day 1 tab daily x 1 week. Then increase to 2 tabs daily as tolerated. New Routed to [place] [address] [place] [id number] Stop Taking the Following Medications: amitriptyline (amitriptyline [...] open cavity, apply OIL OF CLOVES (available jndw-hgk-dwanbsf in drug stores) directly to the tooth to reduce pain. Some pharmacies carry an gyhe-ywp-pltcncp toothache kit. This contains a paste, which [...] tooth ?? Difficulty swallowing or breathing ?? [phone] [place] [address]. All rights reserved. This information is not intended as a substitute for professional medical care. Always follow your healthcare professional's instructions. Your Goals/Additional instructions: This document has images extracted. Please consider using [employer] for all your patient education needs. Source: [facility] POWERCHART Document Id: [id number] Miscellaneous - Alison Berman P.A.-C., M.S. - 12/13/2014 10:41 AM CDT Ambulatory Discharge Medication List [facility] [address], [address] [place], [place] [phone] Visit Information Name: PUNEET FRIED [facility] Number: [id number] Visit Date: 12/13/2014 10:41:39 [...] hours x 7 day(s) New Routed to [place] [address] [address] [place] [id number] HYDROcodone-acetaminophen (Vicodin 5 mg-300 mg oral tablet) 1 Tablet(s), Oral, every 6 hours as needed for Pain No more than 4,000mg acetaminophen/24hrs New Routed to [facility] ibuprofen (ibuprofen 200 mg oral tablet) See Instructions 3-4 tabs prn SUMAtriptan (SUMAtriptan 50 mg oral tablet) 1 Tablet(s), Oral, as directed as needed for Migraine headache Take 1 tablet at onset of headache. Repeat after two hours if needed. Routed to [place] [address] [address] [place] [id number] venlafaxine (venlafaxine 37.5 mg oral tablet, extended release) 1 Tablet(s), Oral, once a day 1 tab daily x 1 week. Then increase to 2 tabs daily as tolerated. New Routed to [place] [address] [place] [id number] Stop Taking the Following Medications: amitriptyline (amitriptyline [...] PA-C Signed On:13-DEC-2014 10:41:02 Additional Information: Source: [facility] POWERCHART Document Id: [id number] Miscellaneous - Glen Graf L.P.N. - 12/13/2014 [...] GRAF LPN - 12/13/2014 9:50 CDT Source: [employer] Document Id: [id number] CDT!13 Miscellaneous - Glen Graf L.P.N. 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
--- OUTSIDE RECORDS SUMMARY | 2022-08-03 09:45 | XMS_ITS | Encounter Summary ---
:1985 Author Organization [facility] Address [address] [place] [address] Care Team Providers Name Role Phone Unavailable Primary Care Provider Unavailable Encounter Details Date Type Department Care Team Description 01/15/2016 Hospital En[facility] Kyle Colmenares M .D., M.P.H. [address] [place], [place] [phone] (Wo rk) Social History [...] How often do you attend judaism or oriental orthodox More than 4 time [...] 10:12 CDT Source: [facility] POWERCHART Document Id: [id number] CDT!3 documented in this encounter Plan of Treatment Not on filedocumented as of this encounter Visit Diagnoses Not on filedocumented in this encounter Additional Health Concerns Assessment Noted Time PHQ-9 Depression Total Score: 11 12/13/2014 9:50 AM CD T documented as of this encounter
--- OUTSIDE RECORDS SUMMARY | 2022-08-03 09:45 | XMS_ITS | Encounter Summary ---
:1985 Author Organization [facility] Address [address] [place] [address] Care Team Providers Name Role Phone Unavailable Primary Care Provider Unavailable Encounter Details Date Type Department Care Team Description 03/15/2015 Hospital Encounter HX [facility] Barbra Vora M.D. [address] [place] [phone] (Wo rk) Social History Tobacco Use [...] Chang M.D. - 03/15/2015 9:12 AM CDT [id number] Document Contains Addenda REVISION HISTORY March 18, 2015 at 10:17 a.m. - Addendum added by Trev Chang M.D. The document below is the most current and includes the modifications. The patient has no history of narcolepsy in the past, but recently has been falling asleep more easily. She has to go to work in [employer] and one night at 10 p.m. as [...] a consultation with the pulmonary specialists at [facility]. She should take Zoloft 150 mg a.m. [...] CHANG MD On: 03/18/2015 03:53 PM Source: [facility] MHSDOLBEYNONRADSYS Document Id: [id number] documented in this encounter Miscellaneous Notes Miscellaneous - Trev Chang M.D. - 03/15/2015 10:16 AM CDT Ambulatory Patient Summary [address] [phone] Visit Information Name: PUNEET FRIED [facility] Number: [id number] Current Date: 03/15/2015 [...] [facility] [address] [id number] SUMAtriptan (SUMAtriptan 50 mg oral tablet) 1 Tablet(s), Oral, as directed as needed for Migraine headache Take 1 tablet at onset of headache. Repeat after two hours if needed. traZODone (traZODone 50 mg oral tablet) 1 Tablet(s), Oral, once a day [facility] [address] [address] Stop Taking the Following Medications: [...] need MRI Scan of Brain first. Source: [facility] POWERCHART Document Id: [id number] Miscellaneous - Trev Chang M.D. - 03/15/2015 10:16 AM CDT Ambulatory Discharge Medication List [address] [id number] Visit Information Name: FARIHA PUNEETCARRIE ALVARADO [facility] Number: [id number] Visit Date: 03/15/2015 [...] day Discontinue Velafaxine New Routed to [address] [place] [address] SUMAtriptan (SUMAtriptan 50 mg oral tablet) 1 Tablet(s), Oral, as directed as needed for Migraine headache Take 1 tablet at onset of headache. Repeat after two hours if needed. traZODone (traZODone 50 mg oral tablet) 1 Tablet(s), Oral, once a day [facility] [address] [address] Stop Taking the Following Medications: Medication list [...] Signed By: Signed On: Additional Information: Source: [facility] POWERCHART Document Id: [id number] Miscellaneous - Trev Chang M.D. - 03/15/2015 10:13 AM CDT Addendum by TREV CHANG MD on 22 March 2015 08:51:25 CDT will do it today.Thanks Addendum by ADITYA HWANG on 15 March 2015 15:39:00 CDT From: ADITYA HWANG To: TREV CHANG MD; Sent: 03/15/2015 15:39:00 CDT ! Subject: FW: The dictation for this patient needs to be submitted LEN for the Referrals to [facility]. Addendum by ADITYA HWANG on 15 March 2015 14:28:10 CDT From: ADITYA HWANG To: ADITYA HWANG; Sent: 03/15/2015 14:28:10 CDT Subject: RE: Referral submitted via online. [facility] scheduling staff will contact patient with appt. info. From: TREV CHANG MD To: ADITYA HWANG; Sent: 03/15/2015 10:13:53 CDT Aditya, this patient,Puneet, has an extremely serious problem with sleep Apnea. Please arrange Consult with sleep Specialist SOON POSSIBLE. Study can follow. Source: [facility] POWERCHART Document Id: [id number] Electronically signed by Conversion, [facility] Child Care Associate Teacher [id number] at 01/18/2017 12:33 AM CDT Miscellaneous - Mimi Herrera L.P.N. 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
--- OUTSIDE RECORDS SUMMARY | 2022-08-03 09:45 | XMS_ITS | Encounter Summary ---
:1985 Author Organization [facility] Address [address] [place] [address] Care Team Providers Name Role Phone Unavailable Primary Care Provider Unavailable Encounter Details Date Type Department Care Team Description 05/10/2014 Hospital Encounter HX [facility] Oralia San O.D. Social History Tobacco [...] How often do you attend sikh or gnosticist More than 4 time s [...] ROACH OD On: 05/10/2014 09:44 AM Source: [employer] POWERCHART Document Id: [id number] documented in this encounter Miscellaneous Notes Miscellaneous - Oralia Roach O.D. - 05/10/2014 9:11 AM CDT Ambulatory Patient Summary [facility] [address] [place], [place] [phone] Visit Information Name: PUNEET FRIED [facility] Number: [id number] Current Date: 05/10/2014 [...] appointment detail needed. Your Goals/Additional instructions: Source: [facility] POWERCHART Document Id: [id number] [facility] - Oralia Roach O.D. 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 Entered On: 05/10/2014 8:55 CDT Performed On: 05/10/2014 8:55 CDT by RAKEL MARTINEZ Intake Chief Complaint : CONTACT LENS CHECK Height : 158 cm(Converted to: 5 ft 2 inch(es), 62 inch(es)) RAKEL MARTINEZ - 05/10/2014 8:55 CDT General Info Information Given By : Patient Languages : Yoruba Is Patient Female and 13-50 no hysterectomy [...] RAKEL MARTINEZ - 05/10/2014 8:55 CDT Source: [facility] [employer] Document Id: [id number] CDT!29 documented in this encounter Plan of Treatment Not on filedocumented as of this encounter Visit Diagnoses Not on filedocumented in this encounter Additional Health Concerns Assessment Noted Time PHQ-9 Depression Total Score: 05/02/2014 9:45 AM CD T documented as of this encounter
--- OUTSIDE RECORDS SUMMARY | 2022-08-03 09:45 | XMS_ITS | Encounter Summary ---
:1985 Author Organization [facility] Address [address] [place] [address] Care Team Providers Name Role Phone Unavailable Primary Care Provider Unavailable Encounter Details Date Type Department Care Team Description 02/07/2016 Hospital Encounter [facility] Kyle Colmenares M .D., M.P.H. [address] [place], [place] [phone] (Wo rk) Social History [...] Only Visit Documentation : MRO review for [facility]. DEV CASPER LPN - 02/07/2016 11:27 CDT Source: [facility] POWERCHART Document Id: [id number] CDT!3 documented in this encounter Plan of Treatment Not on filedocumented as of this encounter Visit Diagnoses Not on filedocumented in this encounter Additional Health Concerns Assessment Noted Time PHQ-9 Depression Total Score: 11 12/13/2014 9:50 AM CD T documented as of this encounter
--- OUTSIDE RECORDS SUMMARY | 2022-08-03 09:45 | XMS_ITS | Encounter Summary ---
:1985 Author Organization [facility] Address [address] [place] [address] Care Team Providers Name Role Phone Unavailable Primary Care Provider Unavailable Encounter Details Date Type Department Care Team Description 03/05/2015 Hospital Encounter [facility] Joslyn Snyder M.D. [address] [place], [place] [phone] (Wo rk) Social [...] How often do you attend moravian or yazidism More than 4 time s [...] 03/05/2015 10:42 AM CDT ED Depart Summary [facility] Emergency Department Clinical Discharge Summary PERSON INFORMATION Name PUNEET FRIED Age 29 Years 1985 12:00 AM Sex Female Language Albanian PCP ALISON MONACO PA-C Marital Status Single Visit Id Visit Reason Throat pain - Adult; Extreme Throat Pain Specialty Enc Type Emergency Med Service Emergency Medicine Referred by Track Group [facility] ED Discharge 03/05/2015 10:30 AM Tracking Id [id number] Checkout 03/05/2015 10:30 AM Checkin 03/05/2015 6:02 AM Acuity 3 -Urgent Dispo Type * Discharged to Home or Self Care Arrival 03/05/2015 6:02 AM Reg Status Complete LOS 000 04:28 Address: [address] [place] [phone] Comment: PROVIDER INFORMATION Provider Role Provider Contact Time JOSLYN SNYDER MD ED Provider 03/05/15 06:20 MAURICE HAYS TIE FASTENER Nurse 03/05/15 06:20 JOSLYN SNYDER MD ED Provider 03/05/15 06:25 DAWNA HART TIE FASTENER Nurse 03/05/15 07:32 DIAGNOSIS Abscess Peritonsillar Comment: PATIENT EDUCATION INFORMATION Instructions: PERITONSILLAR ABSCESS Follow up: Source: [facility] POWERCHART Document Id: [id number] Dawna Hart R.N. - 03/05/2015 10:42 AM CDT ED Discharge Instructions [address] [place] [address] Name: PUNEET FRIED Date of : 1985 12:00 AM Visit Date: 03/05/2015 6:02 AM [facility] Number: [id number] Address: [address] [place] [phone] Primary Care Provider: ALISON MONACO PA-C IMPORTANT: [facility] in [place] would like to thank you for allowing [...] -- Trouble breathing or noisy breathing ?? [phone] [place] [address]. All rights reserved. This information is not [...] to [email or web address] and click on Create Your Account. Then, follow the directions to complete the online form. Youll be asked for your [facility] number which you can find at [...] Date Time Provider Signature Date Time Source: [employer] Document Id: [id number] documented in this encounter ED Notes Dawna [...] HART RN - 03/05/2015 10:41 CDT Source: [employer] Document Id: [id number] CDT!8 Dawna Hart R.N. - 03/05/2015 9:56 [...] HART RN - 03/05/2015 9:56 CDT Source: [employer] Document Id: [id number] CDT!10 Dawna Hart R.N. - 03/05/2015 8:59 [...] HART RN - 03/05/2015 8:59 CDT Source: [employer] Document Id: [id number] CDT!10 Dawna Hart R.N. - 03/05/2015 7:30 [...] HART RN - 03/05/2015 7:30 CDT Source: [employer] Document Id: [id number] CDT!12 Dawna Hart R.N. - 03/05/2015 7:27 [...] HART RN - 03/05/2015 7:27 CDT Source: [facility] [employer] Document Id: [id number] CDT!10 Joslyn Snyder M.D. - 03/05/2015 6:26 [...] She was seen in emergency room in [place] where she was diagnosed with strep throat [...] Stat, Patient Bed, Once, 03/05/2015 6:27 CDT, [facility], Launch Orders Pharmacy: [email or web address] (Order Processing): [...] The patient was told to go to [place] [facility] for further management and [...] SNYDER MD On: 03/05/2015 10:19 AM Source: [facility] POWERCHART Document Id: [id number]} Maurice Hays RBrittaneyN. - 03/05/2015 6:14 AM [...] Medical ; Code: 305.1 ; Contributor System: [employer]Studio ; Last Updated: 12/12/2014 9:21 CDT ; Life Cycle Date: 12/12/2014 ; Life Cycle Status: Active ; Responsible Provider: MAURICE ADDISON; Vocabulary: ICD-9-CM Dysthymic Disorder (ICD-9-CM :300.4 ) Name of Problem: Dysthymic Disorder ; Onset Date: 08/01/2010 ;Confirmation: Confirmed ; Classification: Medical ; Code: 300.4 ; Contributor System: ViViFiChart ; Last Updated: 12/12/2014 9:11 CDT ; Life Cycle Status: Active ; Vocabulary: ICD-9-CM ; Comments: - Dysthymic disorder Headache (ICD-9-CM :784.0 ) Name of Problem: Headache ; Onset Date: 10/24/2007 ; Confirmation: Confirmed ; Classification: Medical ; Code: 784.0 ; Contributor System: ViViFiChart ; Last Updated: 12/12/2014 9:11 CDT ; [...] PNED ; Probability: 0 ; Diagnosis Code: [id number] Triage Chief Complaint Description : see triage Mode of Arrival ED : Private vehicle, Ambulatory Track : Medical Languages : Albanian Treatments Prior to Arrival : Acetaminophen, Ibuprofen [...] HAYS RN - 03/05/2015 6:14 CDT Source: [facility] [employer] Document Id: [id number] CDT!48 Maurice Hays RMarcos. - 03/05/2015 6:09 [...] Medical ; Code: 346.90 ; Contributor System: ViViFiChart ; Last Updated: 12/12/2014 9:11 CDT ; [...] PNED ; Probability: 0 ; Diagnosis Code: [id number] Triage Chief Complaint Description : Pt presents with sore throat. Diagnosed February 27 with strep was seen in ER March 02 again and changed antibiotics. Pain continues, hard to swallow and swollen. Tonsils hugemore on left then right side. Information Given By : Patient Accompanied By : Alone Mode of Arrival ED : Private vehicle, Ambulatory Track : Medical Languages : Albanian Vital Signs Assessed : Yes Treatments Prior [...] Acuity : 3 -Urgent Tracking Group : [facility] MAURICE HAYS RN - 03/05/2015 6:09 CDT Allergy (As Of: 03/05/2015 06:14:25 CDT) Allergies (Active) penicillins Estimated Onset Date: Unspecified ; Created By: GLEN ACOSTA; Reaction Status: Active ;Category: Drug ; Substance: penicillins ; Type: Allergy ; Updated By: GLEN ACOSTA; Reviewed Date: 03/05/2015 6:14 CDT Immunizations Immunizations Current : Yes MAURICE HAYS RN - 03/05/2015 6:09 CDT Source: [employer] Document Id: [id number] CDT!48 documented in this encounter Miscellaneous Notes Miscellaneous - Dawna Hart R.N. - 03/05/2015 10:41 AM CDT Valuables/Belongings Valuables/Belongings Entered On: 03/05/2015 10:41 CDT Performed On: 03/05/2015 10:41 CDT by DAWNA HART RN Valuables/Belongings Belongings Sent Home With : patient DAWNA HART RN - 03/05/2015 10:41 CDT Source: [employer] Document Id: [id number] CDT!3 Miscellaneous - Conversion, Historical Provider Ser - 03/05/2015 10:30 AM CDT Coding Summary-Paper Based CODING DATE: 03/18/2015 FINAL [facility] STATUS: * [...] PATRICK Date Saved: 03/18/2015 11:39 am Source: [facility] POWERCHART Document Id: [id number] Miscellaneous - Dawna Hart RRoverto - 03/05/2015 [...] Control : 7 Lynx Visit Level : 43476 Level 3 Treatments Prior to Arrival : Acetaminophen, Ibuprofen DAWNA HART RN - 03/05/2015 10:41 CDT Source: [facility] POWERCHART Document Id: [id number] CDT!19 documented in this encounter Plan of [...] Mononucleosis Screen, POCT (03/05/2015 6:54 AM CDT) [facility] [employer] Method Time Signature Infectious POWERCHART [place] Test, S HXFinal Negative POWERCHART HXFinal Reference: POWERCHART Negative Specimen (Source) Anatomical Collection Method Collection Time Re ceived Time Location / / Volume Laterality Blood 03/05/2015 6:54 AM CDT Joslyn Snyder M.D. LAB POCT ORDERABLES-MANUAL Performing Organization Address City/[facility] Code Phon e Number POWERCHART Test, Qualitative, Urine (03/05/2015 6:30 AM CDT) [facility] [employer] Method Time Signature HXBeta-hCG Negative POWERCHART Qualitative Urine Specimen (Source) Anatomical Collection Method Collection Time Re ceived Time Location / / Volume Laterality Urine 03/05/2015 6:30 AM CDT Joslyn Snyder M.D. LAB URINE ORDERABLES Performing Organization Address City/[facility] Code Phon e Number POWERCHART documented in this encounter Visit Diagnoses Not on filedocumented in this encounter Additional Health Concerns Assessment Noted Time PHQ-9 Depression Total Score: 11 12/13/2014 9:50 AM CD T documented as of this encounter
--- OUTSIDE RECORDS SUMMARY | 2022-08-03 09:45 | XMS_ITS | Encounter Summary ---
:1985 Author Organization [facility] Address [address] [place] [address] Care Team Providers Name Role Phone Unavailable Primary Care Provider Unavailable Encounter Details Date Type Department Care Team Description 05/28/2014 Hospital Encounter HX [facility] Jalen Nesbitt, JOSEFA, C.N.P., D. N.P. [address] [place] [address] (Wo rk) Social History Tobacco [...] How often do you attend tenriism or orthodox More than 4 time s [...] APRN, C.N.P. - 05/28/2014 2:27 PM CDT [id number] CHIEF COMPLAINT/REASON FOR VISIT Cough and cold [...] Pino/robb Electronically Signed By: JALEN NESBITT RN, FLAME DEGREASER On: 05/30/2014 08:27 AM Source: [facility] MHSDOLBEYNONRADSYS Document Id: [id number] documented in this encounter Miscellaneous Notes Miscellaneous - Jude Cardona L.P.N. - 05/28/2014 2:31 PM CDT Adult Electronics Engineering Manager Intake/History Adult Electronics Engineering Manager Intake/History Entered On: 05/28/2014 14:32 CDT [...] 05/28/2014 14:31 CDT General Info Languages : Kazakh Is [...] CARDONA LPN - 05/28/2014 14:31 CDT Source: [employer] Document Id: [id number] CDT!39 documented in this encounter Plan of Treatment Not on filedocumented as of this encounter Visit Diagnoses Not on filedocumented in this encounter Additional Health Concerns Assessment Noted Time PHQ-9 Depression Total Score: 18 05/02/2014 9:45 AM CD T documented as of this encounter
--- OUTSIDE RECORDS SUMMARY | 2022-08-03 09:45 | XMS_ITS | Encounter Summary ---
:[address] [facility] Address [address] [place] [address] Care Team Providers Name Role Phone Unavailable Primary Care Provider Unavailable Encounter Details Date Type Department Care Team Description 03/05/2015 Hospital Encounter [facility]X [facility] Jono Freedman M.D. [address] [place] [address] 021 Social History Tobacco Use Types Packs/Day [...] How often do you attend restoration or temple More than 4 time s [...] Zavala M.D. - 03/05/2015 11:30 AM CDT [id number] CHIEF COMPLAINT/REASON FOR VISIT Throat infection. HISTORY OF PRESENT ILLNESS Puneet is a 29-year-old who comes in to see me with a 1-week history of a sore throat. She saw Dr. Alisha black in [place] on 02/27. A throat culture done was [...] left side. She saw Dr. Snyder in [place]. A CT scan suggested a left multiloculated peritonsillar abscess. She has not had a lot of problems with her tonsils previously. She does smoke less than a half a pack of cigarettes per day. She has not had throat infection of this nature previously. New patient questionnaire and medical history in [facility] reviewed. PAST MEDICAL/SURGICAL HISTORY PAST MEDICAL HISTORY: Include a history of migraines. PREVIOUS HEAD AND NECK SURGERIES: None indicated. FAMILY HISTORY Negative for bleeding disorders. ALLERGIES Penicillin. 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 Does not drink alcohol, but does smoke somewhat of less than a pack of cigarettes per day. SYSTEMS REVIEW Positive for headaches. Others are negative. MEDICATIONS Listed and reviewed in [facility]. PHYSICAL EXAMINATION She is afebrile. She does [...] Thelma Zavala M.D./robb cc: Parth Snyder M.D. [address] [address] Electronically Signed By: THELMA ZAVALA MD On: 03/05/2015 03:00 PM Source: [facility] MHSDOLBEYNMARGOT Document Id: [id number] documented in this encounter Miscellaneous Notes Telephone Encounter - Thelma Zavala M.D. - 03/11/2015 12:00 AM CDT [id number] Puneet is a 29-year-old who I saw [...] ZAVALA MD On: 03/11/2015 09:42 AM Source: [facility] MHSDOLBEYNONRADSYS Document Id: [id number] Telephone Encounter - Sarina Mark R.N. - [...] is she had any further concerns. Source: [facility] POWERCHART Document Id: [id number] Electronically signed by Roland [facility] Workman [id number] at 01/17/2017 7:14 PM CDT Miscellaneous - Thelma Zavala M.D. - 03/05/2015 12:10 PM CDT Ambulatory Patient Summary [facility] [address], [address] [place] [id number] Visit Information Name: PUNEET FRIED [facility] Number: [id number] Current Date: 03/05/2015 12:10:53 [...] day x 10 day(s) New Routed to [address] [address] EPINEPHrine (EpiPen Auto-Injector 0.3 mg injectable kit) [...] you dont have one. Go to [email or web address] and click on Create Your Account. Then, follow the directions to complete the online form. Youll be asked for your [facility] number which you can find at the top of this document. Your Goals/Additional instructions: Source: [facility] POWERCHART Document Id: [id number] Miscellaneous - Thelma Zavala M.D. - 03/05/2015 12:10 PM CDT Ambulatory Discharge Medication List [facility] [address], [address] [place] [phone] Visit Information Name: PUNEET FRIED [facility] Number: [id number] Visit Date: 03/05/2015 12:10:51 [...] day x 10 day(s) New Routed to [address] [address] EPINEPHrine (EpiPen Auto-Injector 0.3 mg injectable kit) [...] MD Signed On:05-MAR-2015 12:10:43 Additional Information: Source: [facility] POWERCHART Document Id: [id number] Miscellaneous - Mariaelena Dominguez, R.N. - 03/05/2015 11:36 AM CDT Adult Gypsum Calciner Intake/History Adult Gypsum Calciner Intake/History Entered On: 03/05/2015 11:40 CDT Performed On: 03/05/2015 11:36 CDT by MARIAELENA DOMINGUEZ railroad accountant Chief Complaint : left peritonsillar abcess Temperature [...] MARIAELENA DOMINGUEZ - 03/05/2015 11:36 CDT Source: [facility] [employer] Document Id: [id number] CDT!41 documented in this encounter Plan of [...]
--- OUTSIDE RECORDS SUMMARY | 2022-08-03 09:45 | XMS_ITS | Encounter Summary ---
:1985 Author Organization [facility] Address [address] [place] [address] Care Team Providers Name Role Phone Unavailable Primary Care Provider Unavailable Encounter Details Date Type Department Care Team Description 07/31/2014 Hospital Encounter [facility]X [facility] Pavel BELTRAN Obi, M.D. [address] [place] [address] (Wo rk) Social History Tobacco [...] How often do you attend pentecostal or methodist More than 4 time s [...] Comments Blood Pressure 154/92 07/31/2014 10:14 AM TELETRAY OPERATOR Pulse - - Temperature - - Respiratory Rate - - Oxygen Saturation - - Inhaled Oxygen Concentration - - Weight 143 kg (315 lb 11.2 oz) 07/31/2014 10:14 AM TELETRAY OPERATOR Height 158 cm (5' 2.21) 07/31/2014 10:14 AM TELETRAY OPERATOR Body Mass Index 57.36 07/31/2014 10:14 AM TELETRAY OPERATOR documented in this encounter Procedure Notes Berny [...] CHAU MD On: 07/31/2014 10:33 AM Source: [facility] POWERCHART Document Id: [id number] TRAY OPERATOR documented in this encounter Miscellaneous Notes Miscellaneous - Alison Monsivais L.P.N. - 07/31/2014 10:14 AM CST Adult Information Systems Operator Intake/History Adult Information Systems Operator Intake/History Entered On: 07/31/2014 10:16 TELETRAY OPERATOR Performed On: 07/31/2014 10:14 TELETRAY OPERATOR by ALISON MONSIVAIS LPN Intake Chief Complaint [...] kg/m2 ALISON MONSIVAIS LPN - 07/31/2014 10:14 TELETRAY OPERATOR General Info Information Given By : Patient Languages : Uzbek Is Patient Female and 13-50 no hysterectomy : Yes Status : Patient denies Are you ? : No ALISON MONSIVAIS LPN - 07/31/2014 10:14 TELETRAY OPERATOR Subjective Pain Symptoms : No ALISON MONSIVAIS LPN - 07/31/2014 10:14 TELETRAY OPERATOR Dependent Habits Tobacco Use/Currently Using : Yes Tobacco Use/Advised to Quit : Yes Exposure to Tobacco Smoke : Patient smokes Smoking Status : Current some day smoker ALISON MONSIVAIS LPN - 07/31/2014 10:14 TELETRAY OPERATOR Tobacco Use Grid Type : Cigarettes Cigarette Use Packs/Day : 0.5 Last Use : 04/30/2014 ALISON MONSIVAIS LPN - 07/31/2014 10:14 TELETRAY OPERATOR Caffeine Use Grid Caffeine Use : Current Type : Coffee, Soft drinks Frequency : Daily ALISON MONSIVAIS LPN - 07/31/2014 10:14 TELETRAY OPERATOR Recreational Drug Use Grid Drug Use : None ALISON MONSIVAIS LPN - 07/31/2014 10:14 TELETRAY OPERATOR ID Screen Travel Within Last 21 Days : No ALISON MONSIVAIS LPN - 07/31/2014 10:14 TELETRAY OPERATOR Source: [facility] POWERCHART Document Id: [id number] TELETRAY OPERATOR!40 TRAY OPERATOR documented in this encounter Plan of Treatment Not on filedocumented as of this encounter Visit Diagnoses Not on filedocumented in this encounter Additional Health Concerns Assessment Noted Time PHQ-9 Depression Total Score: 18 05/02/2014 9:45 AM CD T documented as of this encounter
--- OUTSIDE RECORDS SUMMARY | 2022-08-03 09:45 | XMS_ITS | Encounter Summary ---
:1985 Author Organization [facility] Address [address] [place] [address] Care Team Providers Name Role Phone Unavailable Primary Care Provider Unavailable Encounter Details Date Type Department Care Team Description 03/20/2015 Hospital Encounter [facility] Barbra Yancey M.D. [address] [place] [phone] (Wo rk) Social History Tobacco Use [...] How often do you attend restorationism or denominational More than 4 time s [...] Summary-Paper Based CODING DATE: 03/28/2015 FINAL [facility] STATUS: * Discharged to Home or [...] ZENG Date Saved: 03/28/2015 07:42 am Source: [employer] POWERCHART Document Id: [id number] documented in this encounter Plan of Treatment Not on filedocumented as of this encounter Visit Diagnoses Not on filedocumented in this encounter Additional Health Concerns Assessment Noted Time PHQ-9 Depression Total Score: 11 12/13/2014 9:50 AM CD T documented as of this encounter
--- OUTSIDE RECORDS SUMMARY | 2022-08-03 09:45 | XMS_ITS | Encounter Summary ---
:1985 Author Organization [facility] Address [address] [place] [address] Care Team Providers Name Role Phone Unavailable Primary Care Provider Unavailable Encounter Details Date Type Department Care Team Description 11/05/2014 - Hospital Encounter [facility] John Berman 05/22/2015 Mago Purdy, M.S. [address] [place] [phone] Social History Tobacco Use Types Packs/Day Years [...] How often do you attend sikh or pentecostal More than 4 time s [...] WANG PT On: 12/31/2014 08:57 AM Source: [employer] POWERCHART Document Id: [id number] documented in this encounter Progress Notes Dev [...] as able. Total Visit Time: 25 minutes Cause Analyst Present NA Electronically Signed By: DEV WANG PT On: 11/28/2014 11:31 AM Source: [employer] Document Id: [id number] Dev aWng P.T. - 11/21/2014 12:33 PM CDT neck [...] as able. Total Visit Time: 27 minutes Cause Analyst Present NA Electronically Signed By: DEV WANG PT On: 11/21/2014 12:41 PM Source: [employer] Document Id: [id number] Daniel Craft P.T. - 11/16/2014 11:17 AM [...] cervical stabilization. Total Visit Time: 22 minutes Cause Analyst Present NA Electronically Signed By: DANIEL CRAFT PT On: 11/16/2014 11:20 AM Source: [facility] POWERCHART Document Id: [id number] Dev Wang P.T. - 11/07/2014 10:56 AM [...] cervical stabilization. 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 This plan of care has been discussed with the patient/health care attorney and the patient/health care attorney is in agreement. Frequency / Duration: Patient will be seen 2 session(s) every week(s) for 8 weeks for a total of 16 visits. I certify that the above rehabilitation services are required and authorized by ms, and that the patient's plan will be [...] huma stabilization. TOTAL VISIT TIME: 45 minutes WEB PRESS OPERATOR PRESENT NA MULTIDISCIPLINARY PATIENT / FAMILY EDUCATION [...] MONACO PA-C On: 11/05/2014 12:11 PM Source: [employer] Document Id: [id number] documented in this encounter Miscellaneous Notes Miscellaneous - Conversion, Historical Provider Ser - 11/08/2014 8:03 AM CDT Coding Summary-Paper Based CODING DATE: 11/08/2014 FINAL [facility] STATUS: Still Patient/Expected to Rtn Oupt [facility] PAYOR: [employer] ADMIT DX: V57.1 Care [...] Revised Date Saved: 11/08/2014 08:03 am Source: [facility] POWERCHART Document Id: [id number] documented in this encounter Plan of Treatment Not on filedocumented as of this encounter Visit Diagnoses Not on filedocumented in this encounter Additional Health Concerns Assessment Noted Time PHQ-9 Depression Total Score: 18 05/02/2014 9:45 AM CD T documented as of this encounter
--- OUTSIDE RECORDS SUMMARY | 2022-08-03 09:45 | XMS_ITS | Encounter Summary ---
:1985 Author Organization [facility] Address [address] [place] [address] Care Team Providers Name Role Phone Unavailable Primary Care Provider Unavailable Encounter Details Date Type Department Care Team Description 03/22/2015 Hospital Encounter HX [facility] Barbra Vora M.D. [address] [place] [phone] (Wo rk) Social History Tobacco Use [...] How often do you attend spiritism or voodoo More than 4 time s [...] restricted diffusion or infarct. Marcio Briceno MD. [phone] 20-Mar-2015 10:52 [1] IMPRESSION/REPORT/PLAN 1. Cyst Brain [...] Ordered: OV Est Pt Level 2 - 92713 - 10 min FOOTNOTES [1]MR Brain w/ + w/o contrast; CATHI MONTIEL 03/20/2015 10:30 CDT Electronically Signed By: LEONORA NATHAN MD On: 03/22/2015 10:41 AM Source: [facility] POWERCHART Document Id: [id number] documented in this encounter Miscellaneous Notes Miscellaneous [...] None Behavioral Health Screen/Safety Assmt : No Caodaism Preference : No qualifying data available. FRANCESCA LOZADA LPN - 03/22/2015 8:03 CDT Advance Directive Advanced Directives : No Advance Directive Additional Information : No FRANCESCA LOZADA LPN - 03/22/2015 8:03 CDT Educ Needs Learning Style Preference Adult Grid Patient : None Family : None FRANCESCA LOZADA LPN - 03/22/2015 8:03 CDT Source: [facility] POWERCHART Document Id: [id number] CDT!35 Miscellaneous - Francesca Lozada L.P.N. - 03/22/2015 7:59 AM CDT Adult Metallurgical Tester Intake/History Adult Metallurgical Tester Intake/History Entered On: 03/22/2015 8:02 CDT [...] 03/22/2015 7:59 CDT General Info Languages : Hong Konger Is Patient Female and 13-50 no hysterectomy [...] Cigarette Use Packs/Day : 0.5 FRANCESCA LOZADA [facility] - 03/22/2015 7:59 CDT Alcohol Use : No FRANCESCA LOZADA [facility] - 03/22/2015 7:59 CDT Caffeine Use Grid Caffeine Use : Current Type : Coffee, Soft drinks Frequency : Occasionally FRANCESCA LOZADA [facility] - 03/22/2015 7:59 CDT Recreational Drug Use Grid Drug Use : None FRANCESCA LOZADA [facility] - 03/22/2015 7:59 CDT Source: [place] Document Id: [id number] CDT!51 documented in this encounter Plan of Treatment Not on filedocumented as of this encounter Visit Diagnoses Not on filedocumented in this encounter Additional Health Concerns Assessment Noted Time PHQ-9 Depression Total Score: 11 12/13/2014 9:50 AM CD T documented as of this encounter
--- OUTSIDE RECORDS SUMMARY | 2022-08-03 09:45 | XMS_ITS | Encounter Summary ---
:1985 Author Organization [facility] Address [address] [place] [address] Care Team Providers Name Role Phone Unavailable Primary Care Provider Unavailable Encounter Details Date Type Department Care Team Description 07/19/2015 Hospital Encounter HX [facility] Luisa Stevens M .D. Social History [...] How often do you attend restorationist or alevism More than 4 time s [...] Comments Blood Pressure 149/69 07/19/2015 9:15 PM JIG HAND Pulse 113 07/19/2015 9:15 PM JIG HAND Temperature - - Respiratory Rate - - Oxygen Saturation - - Inhaled Oxygen Concentration - - Weight - - Height - - Body Mass Index - - documented in this encounter Discharge Summaries Rylee Romero R.N. - 07/19/2015 10:17 PM CST ED Discharge Instructions [place] [id number] [address] Name: PUNEET CLAYTON Date of : 1985 12:00 AM Visit Date: 07/19/2015 9:06 PM [facility] Number: [id number] Address: [address] [place] [address] [phone] Primary Care Provider: ALISON LOREDO PA-C IMPORTANT: [facility] in [place] would like to thank you for allowing us to assist you with your healthcare needs. The following includes patient education materials and informationregarding your injury/illness. Diagnosis: Strep Throat Pharyngitis Follow-Up Instructions: With: Address: When: ALISON LOREDO [address] [place] [id number] [facility] () Within As Needed Comments: [...] ?? Muffled voice ?? New rash ?? [id number] [facility], [address] [place] [address]. All rights reserved. This information is not [...] you dont have one. Go to [email or web address] and click on Create Your Account. Then, [...] document has images extracted. Please consider using [email or web address] for all your patient education needs. Source: [employer] Document Id: [id number] HAND Rylee Romero R.N. - 07/19/2015 10:17 PM CST ED Depart Summary [facility] Emergency Department Clinical Discharge Summary PERSON INFORMATION Name PUNEET CLAYTON Age 29 Years 1985 12:00 AM Sex Female Language Salvadorean PCP ALISON LOREDO PA-C Marital Status Visit Id [facility]# [id number] Visit Reason UC - Sore Throat; Poss strep Specialty Enc Type Emergency Med Service Emergency Medicine Referred by Track Group [facility] ED Discharge 07/19/2015 10:17 PM Tracking Id [id number] Checkout 07/19/2015 10:17 PM Checkin 07/19/2015 9:06 PM Acuity 5 -Non Urgent Dispo Type * Discharged to Home or Self Care Arrival 07/19/2015 9:06 PM Reg Status Complete LOS 000 01:11 Address: [address] [place] [phone] Comment: PROVIDER INFORMATION Provider Role Provider Contact Time RYLEE ROMERO MANUAL TESTER Nurse 07/19/15 21:08 LUISA LOPEZ MD ED Provider 07/19/15 21:08 DIAGNOSIS Strep Throat Pharyngitis Comment: PATIENT EDUCATION INFORMATION Instructions: PHARYNGITIS, Strep (Confirmed) Follow up: With: Address: When: ALISON LOREDO [address] [place] [address] [phone] [employer] (5) Within As Needed Comments: Call for follow up appointment Source: [facility] [employer] Document Id: [id number] HAND documented in this encounter ED Notes Rylee Romero RRoverto - 07/19/2015 10:14 PM CST ED Disposition Summary ED Disposition Summary Entered On: 07/19/2015 22:14 JIG HAND Performed On: 07/19/2015 22:14 JIG HAND by RYLEE ROMERO MANUAL TESTER Disposition Summary Accompanied By : Spouse Printed Discharge Instructions Given to Patient : Yes RYLEE ROMERO RN - 07/19/2015 22:14 JIG HAND Source: [facility] [employer] Document Id: [id number] JIG HAND!4 HAND Rylee Romero R.N. - 07/19/2015 10:14 PM CST ED Pain Assessment ED Pain Assessment Entered On: 07/19/2015 22:14 JIG HAND Performed On: 07/19/2015 22:14 JIG HAND by RYLEE ROMERO RN Pain Assessment Pain Symptoms : Yes RYLEE ROMERO RN - 07/19/2015 22:14 JIG HAND Source: [facility] POWERCHART Document Id: [id number] JIG HAND!3 HAND Rylee Romero R.N. - 07/19/2015 9:14 PM CST ED Primary Assessment Document Has Been Updated ED Primary Assessment Entered On: 07/19/2015 21:15 JIG HAND Performed On: 07/19/2015 21:14 JIG HAND by RYLEE ROMERO RN Reason For Visit (As Of: 07/19/2015 21:20:00 JIG HAND) Problems(Active) Abuse Tobacco Smoking NOS (ICD-9-CM :305.1 [...] Medical ; Code: 346.90 ; Contributor System: Trend[employer]on ; Last Updated: 12/12/2014 9:11 CDT ; Life Cycle Status: Active; Responsible Provider: RABIA NATHAN MD; Vocabulary: ICD-9-CM (ICD-9-CM :V22.2 ) Name of Problem: ; Onset Date: 2007 ; Recorder: GLEN ACOSTA; Confirmation: Confirmed ; Classification: Medical ; Code: V22.2 ; Contributor System: TalkPlusChart ; Last Updated: 01/21/2012 9:41 CDT ; [...] PNED ; Probability: 0 ; Diagnosis Code: [id number] Triage Chief Complaint Description : see note Mode of Arrival ED : Private vehicle Track : Medical Languages : Salvadorean Treatments Prior to Arrival : Acetaminophen Are you ? : No Is Patient Female and 13-50 no hysterectomy : Yes Status : Patient denies RYLEE ROMERO RN - 07/19/2015 21:14 JIG HAND Pain Assessment Pain Symptoms : Yes RYLEE ROMERO RN - 07/19/2015 21:14 JIG HAND Respiratory Airway : Patent Respirations : Unlabored Respiratory Pattern : Regular RYLEE ROMERO RN - 07/19/2015 21:14 JIG HAND Cardiovascular Heart Rhythm : Regular Skin Color : Normal for ethnicity Skin Description : Dry Skin Temperature : Warm RYLEE ROMERO RN - 07/19/2015 21:14 JIG HAND Neurological Last Well Time Known : Yes Last Known Well Time : 07/19/2015 8:00 JIG HAND Level of Consciousness : Alert Orientation : Oriented x 3 Characteristics of Speech : Appropriate for age RYLEE ROMERO RN - 07/19/2015 21:14 JIG HAND ED Psychosocial Affect/Behavior : Calm Domestic Abuse Concerns : None Behavioral Health Screen/Safety Assmt : No RYLEE ROMERO RN - 07/19/2015 21:14 JIG HAND Gastrointestinal Nutrition ED : Adequate RYLEE ROMERO RN - 07/19/2015 21:14 JIG HAND Musculoskeletal Fall Prevention Education Provided : NA RYLEE ROMERO RN - 07/19/2015 21:14 JIG HAND EENT Mouth and Throat Symptoms : Swollen tonsils RYLEE ROMERO RN - 07/19/2015 21:19 JIG HAND Social Habits Tobacco Use/Currently Using : Yes Exposure to Tobacco Smoke : Patient smokes Smoking Status : Current every day smoker RYLEE ROMERO RN - 07/19/2015 21:14 JIG HAND Tobacco Use Grid Type : Cigarettes Cigarette Use Packs/Day : 0.5 RYLEE ROMERO RN - 07/19/2015 21:14 JIG HAND Alcohol Use Grid Alcohol Use : Yes RYLEE ROMERO RN - 07/19/2015 21:14 JIG HAND Recreational Drug Use Grid Drug Use : None RYLEE ROMERO RN - 07/19/2015 21:14 JIG HAND Source: [employer] Document Id: [id number] JIG HAND!3 HAND Luisa Lopez M.D. - 07/19/2015 9:14 PM CST Throat Pain *ED Patient: PUNEET FRIED Age: 29 years Sex: Female : 1985 Author: LUISA LOPEZ MD Attachments: None Associated Diagnosis: Strep Throat Pharyngitis Basic Information Additional information: Chief Complaint from Nursing Triage Note : Chief Complaint Description 07/19/2015 21:12 JIG HAND Chief Complaint Description 29 year old female [...] Headache Abuse Tobacco Smoking NOS (305.1) Resolved ([id number]): Resolved on 01/03/2008 at 22 years.. Surgical history: Pap smear ([id number]) on 01/25/2013 at 27 Years. Pap smear ([id number]) on 01/25/2013 at 27 Years.. Family history: [...] review:Lab results : Lab View 07/19/2015 21:45 JIG HAND Strep A Screen Rapid POS . Reexamination/ [...] LOPEZ MD On: 07/19/2015 10:06 PM Source: [facility] POWERCHART Document Id: [id number]} HAND Rylee Romero R.N. - 07/19/2015 9:12 PM CST ED Triage Assessment Document Has Been Updated ED Triage Assessment Entered On: 07/19/2015 21:14 JIG HAND Performed On: 07/19/2015 21:12 JIG HAND by RYLEE ROMERO RN Reason For Visit (As Of: 07/19/2015 21:14:31 JIG HAND) Problems(Active) Abuse Tobacco Smoking NOS (ICD-9-CM :305.1 ) Name of Problem: Abuse Tobacco Smoking NOS ; Recorder: MAURICE ADDISON; Confirmation: Confirmed ; Classification: Medical ; Code: 305.1 ; Contributor System: TalkPlusChart ; Last Updated: 12/12/2014 9:21 CDT ; [...] Medical ; Code: V22.2 ; Contributor System: [employer]on ; Last Updated: 01/21/2012 9:41 CDT ; [...] PNED ; Probability: 0 ; Diagnosis Code: [id number] Triage Chief Complaint Description : 29 year old female admits with complaints of sore throat a nd fever Mode of Arrival ED : Private vehicle Track : Medical Languages : Salvadorean Treatments Prior to Arrival : Acetaminophen Are you ? : No Is Patient Female and 13-50 no hysterectomy : Yes Status : Patient denies RYLEE ROMERO RN - 07/19/2015 21:12 JIG HAND Pain Assessment Pain Symptoms : Yes RYLEE ROMERO RN - 07/19/2015 21:12 JIG HAND Pain Scale Pain Scale Verbal 0-10 : Open RYLEE ROMERO RN - 07/19/2015 21:12 JIG HAND Pain Pain Assessment Grid Pain 1 Location : Throat Intensity : 5 RYLEE ROMERO RN - 07/19/2015 21:12 JIG HAND ED Physician Notification Time ED Physician Notification Time : 07/19/2015 21:14 JIG HAND RYLEE ROMERO RN - 07/19/2015 21:12 JIG HAND JAYDEN JAYDEN Level 1 : No JAYDEN Level 2 : No JAYDEN Level 3 : Many RYLEE ROMERO RN - 07/19/2015 21:12 JIG HAND DCP GENERIC CODE Tracking Acuity : 5 -Non Urgent Tracking Group : [facility] ED RYLEE ROMERO RN - 07/19/2015 21:12 JIG HAND Allergy (As Of: 07/19/2015 21:14:31 JIG HAND) Allergies (Active) penicillins Estimated Onset Date: Unspecified ; Created By: GLEN ACOSTA; Reaction Status: Active ;Category: Drug ; Substance: penicillins ; Type: Allergy ; Updated By: GLEN ACOSTA; Reviewed Date: 04/22/2015 10:36 CDT Immunizations Influenza : None RYLEE ROMERO RN - 07/19/2015 21:12 JIG HAND Source: [employer] Document Id: [id number] JIG HAND!30 HAND documented in this encounter Miscellaneous Notes Miscellaneous - Conversion, Historical Provider Ser - 07/19/2015 10:17 PM JIG HAND Coding Summary-Paper Based CODING DATE: 07/29/2015 FINAL [facility] STATUS: * Discharged to Home [...] PAGAN Date Saved: 07/29/2015 01:50 pm Source: [employer] Document Id: [id number] Miscellaneous - Rylee Romero RMarcos. - 07/19/2015 10:14 PM CST Valuables/Belongings Valuables/Belongings Entered On: 07/19/2015 22:14 JIG HAND Performed On: 07/19/2015 22:14 JIG HAND by RYLEE ROMERO RN Valuables/Belongings Belongings Sent Home With : Allsent with patient RYLEE ROMERO RN - 07/19/2015 22:14 JIG HAND Source: [employer] Document Id: [id number] JIG HAND!3 HAND Miscellaneous - Rylee Romero R.N. - 07/19/2015 9:06 PM CST Facility Charge Ticket 2.0 11.0 DX Facility Charge Ticket 2.0 11.0 DX Entered On: 07/19/2015 22:14 JIG HAND Performed On: 07/19/2015 21:06 JIG HAND by RYLEE ROMERO RN Facility Charge Ticket [...] Nursing Notes ED Primary Assessment,07/19/15 21:14,RYLEE ROMERO MANUAL TESTER Primary Assessment,07/19/15 21:14,RYLEE ROMERO MANUAL TESTER Pain Assessment,07/19/15 22:14,RYLEE ROMERO RN Lynx Nursing Assessment : Triage and 1-2 nursing assessments Lynx Disposition : Discharge Disposition RTF : discharge Lynx Total Points with Diagnosis Control : 5 Lynx Visit Level : 19423 Level 3 Treatments Prior to Arrival : Acetaminophen RYLEE ROMERO RN - 07/19/2015 22:14 JIG HAND Source: [facility] POWERCHART Document Id: [id number] JIG HAND!19 HAND documented in this encounter Plan of Treatment Not on filedocumented as of this encounter Procedures Procedure Name Priority Date/Time Associated Diagnosis Comme nts RAPID STREP A Routine 07/19/2015 9:45 PM Results for this SCREEN JIG HAND procedure are i n the results section. documented in this encounter Results (ABNORMAL) Rapid Strep A Screen (07/19/2015 9:45 PM JIG HAND) [facility] gist Method Time Signature HXStrep A (POSITIVE) POWERCHART Screen Rapid HXFinal Positive for POWERCHART Group A Strep by rapid screen. Specimen (Source) Anatomical Collection Method Collection Time Re ceived Time Location / / Volume Laterality Throat 07/19/2015 9:45 PM JIG HAND Luisa Lopez M.D. LAB MICROBIOLOGY - GENERAL O RDERABLES Performing Organization Address City/State/ZIP Code Phon e Number POWERCHART documented in this encounter Visit Diagnoses Not on filedocumented in this encounter Additional Health Concerns Assessment Noted Time PHQ-9 Depression Total Score: 11 12/13/2014 9:50 AM CD T documented as of this encounter
--- OUTSIDE RECORDS SUMMARY | 2022-08-03 09:45 | XMS_ITS | Encounter Summary ---
:1985 Author Organization [facility] Address [address] [place] [address] Care Team Providers Name Role Phone Unavailable Primary Care Provider Unavailable Encounter Details Date Type Department Care Team Description 01/24/2015 - Hospital Encounter HX [facility] ED Rizwan Dean M.D. 01/25/2015 [address] [place] [phone] (Wo rk) Social History Tobacco [...] How often do you attend orthodox or buddhism More than 4 time s [...] 01/25/2015 12:43 AM CDT ED Discharge Instructions [address] [place] [address] Name: PUNEET FRIED Date of : 1985 12:00 AM Visit Date: 01/24/2015 10:25 PM [facility] Number: [id number] Address: [address] [place] [phone] Primary Care Provider: ALISON MONACO PA-C IMPORTANT: [facility] in [place] would like to thank you for allowing us to assist you with your healthcare needs. The following includes patient education materials and information regarding your injury/illness. Diagnosis: Angioedema Initial; Urticaria Allergic Follow-Up Instructions: With: Address: When: ALISON MONACO [address] [place] [phone] Business (1) Within As Needed Comments: Your [...] Colored fluid draining from the wound ?? [phone] [place] [address]. All rights reserved. This information is not intended as a substitute for professional medical care. Always follow your healthcare professional's instructions. Angioedema Angioedema (pronounced jezdg-i-bwvfx) is a sudden appearance of swollen patches [...] Trouble breathing ?? Severe abdominal pains ?? [phone], [place] [address]. All rights reserved. This information is not [...] document has images extracted. Please consider using [employer] for all your patient education needs. Source: [facility] POWERCHART Document Id: [id number] Pati Shepard R.N. - 01/25/2015 12:43 AM CDT ED Depart Summary [facility] Emergency Department Clinical Discharge Summary PERSON INFORMATION Name PUNEET FRIED Age 29 Years 1985 12:00 AM Sex Female Language Vincentian PCP ALISON MONACO PA-C Marital Status Single Visit Id Visit Reason Insect bite and/or sting; ALLERGIC REACTION TO BUG BITE Specialty Enc Type Emergency Med Service Emergency Medicine Referred by Track Group [facility] ED Discharge 01/25/2015 12:35 AM Tracking Id [id number] Checkout 01/25/2015 12:35 AM Checkin 01/24/2015 10:25 PM Acuity 4 -Less Urgent Dispo Type * Discharged to Home or Self Care Arrival 01/24/2015 10:25 PM Reg Status Complete LOS 000 02:10 Address: [address] [place] [phone] Comment: PROVIDER INFORMATION Provider Role Provider Contact Time KAREY PENA SUPERVISOR FRAME SAMPLE AND PATTERN Nurse 01/24/15 22:32 PATI SHEPARD RN ED Nurse 01/24/15 23:08 SLIM DEAN MD ED Provider 01/24/15 23:37 DIAGNOSIS Angioedema Initial; Urticaria Allergic Comment: PATIENT EDUCATION INFORMATION Instructions: ALLERGIC REACTION, Insect (General); ANGIOEDEMA Follow up: With: Address: When: ALISON MONACO [address] [place] [address] [phone] [employer] (9) Within As Needed Comments: Source: [facility] POWERCHART Document Id: [id number] documented in this encounter ED Notes Pati [...] SHEPARD RN - 01/25/2015 0:40 CDT Source: [facility] [employer] Document Id: [id number] CDT!7 Slim Dean - 01/24/2015 11:36 PM [...] 300.4 / Confirmed Dysthymic disorder Resolved: / [id number]. Physical Examination Vital Signs: Vital Signs 01/24/2015 [...] Time 01/25/2015 00:35:00, to home. Prescriptions: Prescription Newsp[facility] Pharmacy: EpiPen Auto-Injector 0.3 mg injectable kit [...] DEAN MD On: 01/25/2015 12:36 AM Source: [facility] POWERCHART Document Id: [id number]} Karey Pena, R.N. - 01/24/2015 10:37 PM [...] Medical ; Code: V22.2 ; Contributor System: [employer] ; Last Updated: 01/21/2012 9:41 CDT ; Life Cycle Date: 01/12/2012 ; Life Cycle Status: Active ; Responsible Provider: GLEN ACOSTA; Vocabulary: ICD-9-CM Diagnoses(Active) Insect bite and/or sting Date: 01/24/2015 ; Diagnosis Type: Reason For Visit ; Confirmation: Complaint of ; Clinical Dx: Insect bite and/or sting ; Classification: Medical ; Clinical Service: Emergencymedicine ; Code: PNED ; Probability: 0 ; Diagnosis Code: [id number] Triage Chief Complaint Description : 29 year old female with complaints of a bug bite on the left side of the neck. Patient is having hot flashes and SOB at times. Bug bite patient around 0530pm tonight. Information Given By : Patient, Friend Accompanied By : Friend Mode of Arrival ED : Private vehicle Track : Medical Languages : Vincentian Treatments Prior to Arrival : None Are [...] ; Type: Allergy ; Updated By: GLEN ACSOTA; Reviewed Date: 01/24/2015 22:39 CDT Respiratory Airway [...] PENA RN - 01/24/2015 22:37 CDT [facility] Document Id: [id number] CDT!53 documented in this encounter Miscellaneous Notes Miscellaneous - Pati Shepard R.N. - 01/25/2015 12:35 AM CDT Valuables/Belongings Valuables/Belongings Entered On: 01/25/2015 0:41 CDT Performed On: 01/25/2015 0:35 CDT by PATI SHEPARD RN Valuables/Belongings Valuables/Belongings Grid Valuables with Patient Clothes, Patient Valuables : Other: cellphone PATI SHEPARD RN - 01/25/2015 0:41 CDT Source: [facility] [employer] Document Id: [id number] CDT!5 Miscellaneous - Conversion, Historical Provider Ser - 01/25/2015 12:35 AM CDT Coding Summary-Paper Based CODING DATE: 02/07/2015 FINAL [facility] STATUS: * Discharged [...] ZENG Date Saved: 02/07/2015 11:40 am Source: [facility] [employer] Document Id: [id number] Miscellaneous - Pati Shepard R.N. - 01/25/2015 12:17 AM CDT Communication Note Communication Note Entered On: 01/25/2015 0:17 CDT Performed On: 01/25/2015 0:17 CDT by PATI SHEPARD RN Communication Assessment Communication Note : Feeling better. PATI SHEPARD RN - 01/25/2015 0:17 CDT [facility] Document Id: [id number] CDT!3 Miscellaneous - Pati Shepard R.N. - [...] Control : 2 Lynx Visit Level : 56899 Level 2 Treatments Prior to Arrival : None PATI SHEPARD RN - 01/25/2015 0:41 CDT Source: [employer] Document Id: [id number] CDT!18 documented in this encounter Plan of Treatment Not on filedocumented as of this encounter Visit Diagnoses Not on filedocumented in this encounter Additional Health Concerns Assessment Noted Time PHQ-9 Depression Total Score: 11 12/13/2014 9:50 AM CD T documented as of this encounter
--- OUTSIDE RECORDS SUMMARY | 2022-08-03 09:45 | XMS_ITS | Encounter Summary ---
:1985 Author Organization [facility] Address [address] [place] [address] Care Team Providers Name Role Phone Unavailable Primary Care Provider Unavailable Encounter Details Date Type Department Care Team Description 02/15/2016 Hospital Encounter HX [facility] Renny Castro M.D. [address] [place], [place] [phone] (Wo rk) Social History [...] How often do you attend druze or buddhist More than 4 time s [...] Acuna M.D. - 02/15/2016 8:56 AM CDT [id number] CHIEF COMPLAINT/REASON FOR VISIT Sore throat. HISTORY [...] ACUNA MD On: 02/18/2016 05:30 PM Source: [facility] MHSDOLBEYNONRADSYS Document Id: [id number] documented in this encounter Miscellaneous Notes Miscellaneous - Timbo Acuna M.D. - 02/15/2016 10:25 AM CDT Work Excuse February 15, 2016 PUNEET CLAYTON [address] [facility] [phone] Dear PUNEET CLAYTON, You were examined in [...] 02/16/2016 Notes: _ Sincerely, TIMBO ACUNA [address] [place] [address] Electronic Signature Electronically Signed By: TIMBO ACUNA MD On: February 15, 2016 This document has images extracted. Source: [facility] POWERCHART Document Id: [id number] Miscellaneous - Craig Tolentino, L.P.N. - 02/15/2016 9:21 AM CDT Adult Talent Specialist Intake/History Adult Talent Specialist Intake/History Entered On: 02/15/2016 9:24 CDT Performed [...] ft 2 inch(es), 62 inch(es)) CRAIG TOLENTINO [facility] - 02/15/2016 9:21 CDT General Info Information Given By : Patient Preferred Communication Mode : Verbal Languages : Sri Lankan Is Patient Female and 13-50 no hysterectomy : Yes Status : Patient denies Are you ? : No CRAIG TOLENTINO [facility] - 02/15/2016 9:21 CDT Subjective Pain Symptoms : Yes CRAIG TOLENTINO [facility] - 02/15/2016 9:21 CDT Pain Scale Pain Scale Verbal 0-10 : Open CRAIG TOLENTINO [facility] - 02/15/2016 9:21 CDT Pain Pain Assessment Grid Pain 1 Location : Throat Intensity : 8 CRAIG TOLENTINO [facility] - 02/15/2016 9:21 CDT Dependent Habits Exposure to Tobacco Smoke : Patient smokes Smoking Status : Current every day smoker Tobacco 2A : Yes Tobacco Use/Currently Using : Yes Tobacco Use/Last 30 Days : Yes Tobacco Use/Last 12 months : Yes Type : Cigarettes: Less than 20 per day Tobacco Use/Advised to Quit : Yes Alcohol Use : No CRAIG TOLENTINO [facility] - 02/15/2016 9:21 CDT Caffeine Use Grid Caffeine Use : Current Type : Coffee, Soft drinks Frequency : Occasionally CRAIG TOLENTINO [facility] - 02/15/2016 9:21 CDT Recreational Drug Use Grid Drug Use : None CRAIG TOLENTINO [facility] - 02/15/2016 9:21 CDT [facility] Document Id: [id number] CDT!49 documented in this encounter Plan of Treatment Not on filedocumented as of this encounter Procedures Procedure Name Priority Date/Time Associated Diagnosis Comme nts RAPID STREP A Routine 02/15/2016 9:27 AM Results for this SCREEN CDT procedure are i n the results section. documented in this encounter Results (ABNORMAL) Rapid Strep A Screen (02/15/2016 9:27 AM CDT) [facility] gist Method Time Signature HXStrep A [...]
--- OUTSIDE RECORDS SUMMARY | 2022-08-03 09:45 | XMS_ITS | Encounter Summary ---
:1985 Author Organization [facility] Address [address] [place] [address] Care Team Providers Name Role Phone Unavailable Primary Care Provider Unavailable Encounter Details Date Type Department Care Team Description 02/27/2015 [facility] En[facility] 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 Patient was also given a script for prednisone to help with the swelling. Ordered: OV Est Pt Level 3 - [address]802 - 15 min Orders: cephalexin, 500 mg = 1 cap(s), PO, 2xDay, x 10 day(s), # 20 cap(s), 0 Refill(s), Acute, Pharmacy: [facility] predniSONE, 40 mg = 2 tab(s), PO, Daily, x 5 day(s), # 10 tab(s), 0 Refill(s), Acute, Pharmacy: [facility] Electronically Signed By: LEONORA NATHAN MD On: 02/27/2015 08:25 AM Source: [facility] POWERCHART Document Id: [id number] documented in this encounter Miscellaneous Notes Miscellaneous - Roosevelt Rodriges L.PBrittaneyNBrittaney - 02/27/2015 1:00 PM CDT Quality Measures Quality Measures Entered On: 03/07/2015 13:00 CDT Performed On: 02/27/2015 13:00 CDT by ROOSEVELT RODRIGES LPN Depression PHQ-9 Score : 0 ROOSEVELT RODRIGES LPN - 03/07/2015 13:00 CDT [facility] Document Id: [id number] CDT!3 Miscellaneous - Leonora Farias M.D. - 02/27/2015 7:39 AM CDT Work Excuse 27 February 2015 PUNEET FRIED [address] [place] [phone] Dear PUNEET FRIED, You were examined in [...] date: 02/28/2015 Notes: _ Sincerely, LEONORA NATHAN [address] [phone] Electronic Signature Electronically Signed By: LEONORA NATHAN MD On: 27 February 2015 This document has images extracted. [facility] Document Id: [id number] Miscellaneous - Leonora Farias M.D. - 02/27/2015 7:38 AM CDT Ambulatory Patient Summary [address] [facility] NEHEMIAH Hawk [phone] Visit Information Name: PUNEET FRIED [facility] Number: [id number] Current Date: 02/27/2015 07:38:28 [...] x 10 day(s) New Routed to [facility] [address] [place] [address] EPINEPHrine (EpiPen Auto-Injector 0.3 mg injectable kit) [...] x 5 day(s) New Routed to [facility] [address] SUMAtriptan (SUMAtriptan 50 mg oral tablet) 1 [...] if you dont have one. Go to [email or web address] and click on Create Your Account. Then, follow the directions to complete the online form. Youll be asked for your [facility] number which you can find at the top of this document. Your Goals/Additional instructions: Source: [facility] POWERCHART Document Id: [id number] Miscellaneous - Leonora Farias M.D. - 02/27/2015 7:38 AM CDT Ambulatory Discharge Medication List [address] [phone] Visit Information Name: PUNEET FRIED [facility] Number: [id number] Visit Date: 02/27/2015 07:38:26 [...] day x 10 day(s) New Routed to [address] [address] EPINEPHrine (EpiPen Auto-Injector 0.3 mg injectable kit) [...] day x 5 day(s) New Routed to [address] [address] SUMAtriptan (SUMAtriptan 50 mg oral tablet) 1 [...] MD Signed On:27-FEB-2015 07:38:18 Additional Information: Source: [facility] POWERCHART Document Id: [id number] Miscellaneous - Trace Khan, L.P.N. - 02/27/2015 7:10 AM CDT Adult Bellhop Service Captain Intake/History Document Has Been Updated Adult Bellhop Service Captain Intake/History Entered On: 02/27/2015 7:10 CDT Performed [...] Preferred Communication Mode : Verbal Languages : French Is Patient Female and 13-50 no hysterectomy : Yes Status : Patient denies Are you ? : No TRACE KHAN [facility] - 02/27/2015 7:10 CDT Subjective Pain Symptoms : No [facility] KH[facility] - 02/27/2015 7:10 CDT Dependent Habits Tobacco Use/Currently Using : Yes Tobacco Use/Advised to Quit : Yes Exposure to Tobacco Smoke : Patient smokes Smoking Status : Current every day smoker [facility] - 02/27/2015 7:10 CDT Tobacco Use Grid Type : Cigarettes Cigarette Use Packs/Day : 0.5 [facility] - 02/27/2015 7:10 CDT Alcohol Use : No [facility] - 02/27/2015 7:12 CDT Caffeine Use Grid Caffeine Use : Current Type : Coffee, Soft drinks Frequency : Occasionally [facility] - 02/27/2015 7:12 CDT [facility] - 02/27/2015 7:10 CDT Recreational Drug Use Grid Drug Use : None [facility] KHAN [facility] - 02/27/2015 7:10 CDT Source: [facility] Bradford NetworksCHART Document Id: [id number] CDT!21 documented in this encounter Plan of Treatment Not on filedocumented as of this encounter Procedures Procedure Name Priority Date/Time Associated Diagnosis Comme nts RAPID STREP A Routine 02/27/2015 7:10 AM Results for this SCREEN CDT procedure are i n the results section. documented in this encounter Results (ABNORMAL) Rapid Strep A Screen (02/27/2015 7:10 AM CDT) [facility] gist Method Time Signature HXStrep A [...]
--- OUTSIDE RECORDS SUMMARY | 2022-08-03 09:45 | XMS_ITS | Encounter Summary ---
:1985 Author Organization [facility] Address [address] [place] [address] Care Team Providers Name Role Phone Unavailable Primary Care Provider Unavailable Encounter Details Date Type Department Care Team Description 11/01/2014 Hospital Encounter [facility] Maureen Berman P.A.-C., M.S. [address] [place] [phone] (Wo rk) Social History Tobacco Use Types [...] P.A.-C., M.S. - 11/01/2014 9:05 AM CDT [id number] CHIEF COMPLAINT/REASON FOR VISIT Headache management. HISTORY [...] MONACO PA-C On: 11/05/2014 01:01 PM Source: [facility] MHSDOLBEYNONRADSYS Document Id: [id number] documented in this encounter Miscellaneous Notes Miscellaneous - Rosalind Berman P.A.-C., M.S. - 11/01/2014 10:51 AM CDT Normal Results Letter 01 November 2014 PUNEET FRIED [address] [place] [phone] Dear PUNEET FRIED, I am pleased to [...] 150 - 450 Sincerely, ROSALIND MONACO [address] [place] [address] Electronic Signature Electronically Signed By: ROSALIND MONACO PA-C On: 01 November 2014 This document has images extracted. Source: [facility] POWERCHART Document Id: [id number] Electronically signed by Conversion, [facility] Computer Repairer [id number] at 01/18/2017 5:27 PM CDT Miscellaneous - Conversion, Historical Provider Ser - 11/01/2014 9:12 AM CDT Adult Systems Eng Intake/History Adult Systems Eng Intake/History Entered On: 11/01/2014 9:14 CDT Performed On: 11/01/2014 9:12 CDT by FRANCIEИРИНАBARBARA Nena [facility] Intake Chief Complaint : headache management LMP [...] Mass Index : 57.68 kg/m2 BARBARA VALLES [facility] - 11/01/2014 9:12 CDT General Info Information Given By : Patient Languages : Spanish Is Patient Female and 13-50 no hysterectomy : Yes Status : Patient denies Are you ? : No BARBARA VALLES Nena [facility] - 11/01/2014 9:12 CDT Subjective Pain Symptoms : Yes FRANCIEИРИНАBARBARA Nena [facility] - 11/01/2014 9:12 CDT Pain Scale Pain Scale Verbal 0-10 : Open BARBARA VALLES Nena [facility] - 11/01/2014 9:12 CDT Pain Pain Assessment Grid Pain 1 Location : Head Intensity : 8 BARBARA VALLES Nena [facility] - 11/01/2014 9:12 CDT Dependent Habits Tobacco Use/Currently Using : Yes Tobacco Use/Advised to Quit : Yes Exposure to Tobacco Smoke : Patient smokes Smoking Status : Current every day smoker BARBRAA VALLES Nena [facility] - 11/01/2014 9:12 CDT Tobacco Use Grid Type : Cigarettes Cigarette Use Packs/Day : 0.5 Last Use : 04/30/2014 FRANCIEBARBARA GIFFORD [facility] - 11/01/2014 9:12 CDT Caffeine Use Grid Caffeine Use : Current Type : Coffee, Soft drinks Frequency : Daily BARBARA VALLES [facility] - 11/01/2014 9:12 CDT Recreational Drug Use Grid Drug Use : None BARBARA VALLES [facility] - 11/01/2014 9:12 CDT ID Screen Travel Within Last 21 Days : No Contact with someone with Ebola : No BARBARA VALLES [facility] - 11/01/2014 9:12 CDT Source: [facility] POWERCHART Document Id: [id number] CDT!50 documented in this encounter Plan of [...] X109L Erythrocytes 4.74 3.90 - 5.03 POWERCHART Q7664P HX RDW 13.2 11.9 - 15.5 POWERCHART [...]
--- OUTSIDE RECORDS SUMMARY | 2022-08-03 09:46 | XMS_ITS | Encounter Summary ---
:1985 Author Organization [facility] Address [address] [place] [address] Care Team Providers Name Role Phone Unavailable Primary Care Provider Unavailable Encounter Details Date Type Department Care Team Description 11/03/2012 - Hospital Encounter HX [facility] ED Stephen Toth M.D. 11/04/2012 Social [...] How often do you attend presybeterian or protestant More than 4 time s [...] 11/14/2012 2:53 PM CDT ED Discharge Instructions [address] [address] Name: PUNEET FRIED Date of : 1985 12:00 AM Visit Date: 11/03/2012 8:13 PM [facility] Number: [id number] Address: [address] [place] [phone] Primary Care Provider: RABIA NATHAN MD IMPORTANT: [facility] [place] would like to thank you for allowing [...] with fevers. With: Address: When: RABIA NATHAN [address] [place] [address] Business (1) Within As Needed Comments: Patient Education Materials: [id number] NECK SPASM [No trauma] Spasm of the [...] or vomiting Fever over 100.4??F (38.0??C) ?? [phone] [employer], [address] [place] [address]. All rights reserved. This information is not [...] document has images extracted. Please consider using [employer] for all your patient education needs. Source: [facility] POWERCHART Document Id: [id number] Jeaneth Rodríguez R.N. - 11/14/2012 2:53 PM CDT ED Depart Summary [facility] Emergency Department Clinical Discharge Summary PERSON INFORMATION Name PUNEET FRIED Age 26 Years 1985 12:00 AM Sex Female Language Micronesian PCP RABIA NATHAN MD Marital Status Single N [id number] [id number] Reason ; Head pain; PAIN, BACK, RT SIDE OF HEAD Specialty Enc Type Emergency Med Service Emergency Medicine Referred by Track Group [facility] ED Discharge 11/04/2012 4:26 PM Tracking Id [id number] Checkout 11/04/2012 3:14 PM Checkin 11/03/2012 8:13 PM Acuity Dispo Type * Discharged to Home or Self Care Arrival 11/03/2012 8:13 PM Reg Status LOS 000 19:01 Address: [address] [place] [phone] Comment: PROVIDER INFORMATION Provider Role Provider Contact Time RUIZ KING MD ED Provider 11/04/12 15:11 RUIZ KING MD ED Provider 11/04/12 15:11 DIAGNOSIS Comment: PATIENT EDUCATION INFORMATION Instructions: NECK SPASM, No Trauma Follow up: With: Address: When: Return to Emergency Department Within As Needed Comments: Return to ER if you develop severe worsening, generalized headache with fevers. With: Address: When: RABIA VENITA [address] [place] [address] Business (1) Within As Needed Comments: Source: [facility] [employer] Document Id: [id number] documented in this encounter Nursing Notes Rylee [...] Medical ; Code: 1231 ; Contributor System: [employer] ; Last Updated: 01/21/2012 9:41 CDT ; Life Cycle Date: 01/12/2012 ; Life Cycle Status: Active ; Responsible Provider: GLEN ACOSTA; Vocabulary: ICD-9-CM Diagnoses(Active) Head pain Date: 11/03/2012 ; Diagnosis Type: Reason For Visit ; Confirmation: Complaint of ; Clinical Dx: Head pain ; Classification: Medical ; Clinical Service: Emergency medicine ; Code: PNED ; Probability: 0 ; Diagnosis Code: [id number] Triage Chief Complaint Description : see notes Information Given By : Patient Accompanied By : Friend Mode of Arrival ED : Private vehicle Track : Medical Languages : Micronesian RYLEE ROMERO RN - 11/03/2012 20:47 CDT [...] ROMERO RN - 11/03/2012 20:47 CDT Source: [facility] [employer] Document Id: [id number] documented in this encounter ED Notes Stephen [...] selected or recorded. Surgical history: . None ([id number]). Family history: . No family history items [...] % 58.8 % Lymph % 31.9 % [facility] % 6.9 % Eos % 2.2 % Baso % 0.2 % Neutro Absolute 5.73 10(9)/L Lymph Absolute 3.10 x10(9)/L HI [facility] Absolute 0.67 x10(9)/L Eos Absolute 0.21 x10(9)/L [...] TOTH MD On: 11/03/2012 09:21 PM Source: [facility] [employer] Document Id: [id number]} Rylee Romero R.N. - 11/03/2012 8:44 PM [...] Medical ; Code: 1231 ; Contributor System: [employer] ; Last Updated: 01/21/2012 9:41 CDT ; Life Cycle Date: 01/12/2012 ; Life Cycle Status: Active ; Responsible Provider: GLEN ACOSTA; Vocabulary: ICD-9-CM Diagnoses(Active) Head pain Date: 11/03/2012 ; Diagnosis Type: Reason For Visit ; Confirmation: Complaint of ; Clinical Dx: Head pain ; Classification: Medical ; Clinical Service: Emergency medicine ; Code: PNED ; Probability: 0 ; Diagnosis Code: [id number] Triage Chief Complaint Description : 26 year old female admits with compalints of right sided ocipital painx24 hrs. Pt states she has been exposed to menigitis on Wednesday Information Given By : Patient Mode of Arrival ED : Private vehicle Track : Medical Languages : Micronesian RYLEE ROMERO RN - 11/03/2012 20:44 CDT [...] ROMERO RN - 11/03/2012 20:44 CDT Source: [employer] Document Id: [id number] documented in this encounter Miscellaneous Notes Miscellaneous [...] Control : 8 Lynx Visit Level : 11502 Level 4 [place] - 11/08/2012 13:29 CDT Source: [employer] Document Id: [id number] documented in this encounter Plan of Treatment [...] % 31.9 23.0 - POWERCHART [address] % 6.9 2.0 - 18.0 POWERCHART HX [...] M.D. LAB HISTORICAL ORDERS Performing Organization Address City/[facility]/ZIP Code Phon e Number POWERCHART CRP (C-Reactive Protein) (11/03/2012 9:10 PM CDT) P athologist Signature C-Reactive 0.4 0.0 - 0.8 POWERCHART Protein (CRP), MGDL S Specimen (Source) Anatomical Collection Method Collection Time Re ceived Time Location / / Volume Laterality Blood 11/03/2012 9:10 PM CDT Stephen Toth M.D. LAB BLOOD ADD-ON Performing Organization Address City/[facility] Code Phon e Number POWERCHART documented in this encounter Visit Diagnoses Not on filedocumented in this encounter
--- OUTSIDE RECORDS SUMMARY | 2022-08-03 09:46 | XMS_ITS | Encounter Summary ---
:1985 Author Organization [facility] Address [address] [place] [address] Care Team Providers Name Role Phone Unavailable [...] Historical Provider Ser - 09/08/2011 12:00 AM MEMBERSHIP SECRETARY [id number] LETTER Carol Juarez [address] [place] [phone] [facility] September 08, 2011 Dear Carol: [...] to keep this appointment, please call the [facility] Emergency [facility] Department as soon as possible at or toll-free to reschedule or cancel. We look forward to hearing from you. Thank you, [facility] Source: [facility] RWHXTRANSXRTFSYS Document Id: [id number] documented in this encounter Plan of Treatment Not on filedocumented as of this encounter Visit Diagnoses Not on filedocumented in this encounter
--- OUTSIDE RECORDS SUMMARY | 2022-08-03 09:46 | XMS_ITS | Encounter Summary ---
:1985 Author Organization [facility] Address [address] [place] [address] Care Team Providers Name Role Phone Unavailable Primary Care Provider Unavailable Encounter Details Date Type Department Care Team Description 08/02/2013 Hospital Encounter HX NO MAPPING Berny Garcia M.D. [address] [place], [place] [phone] (Wo rk) Social History [...] How often do you attend zoroastrian or taoism More than 4 time s [...]
--- OUTSIDE RECORDS SUMMARY | 2022-08-03 09:46 | XMS_ITS | Encounter Summary ---
:1985 Author Organization [facility] Address [address] [place] [address] Care Team Providers Name Role Phone Unavailable Primary Care Provider Unavailable Encounter Details Date Type Department Care Team Description 01/12/2012 Hospital Encounter HX [facility] Gildardo Marvin M.D. [address] [place] [phone] (Wo rk) Social History Tobacco Use [...] How often do you attend mosque or adventism More than 4 time s [...] Marvin M.D. - 01/12/2012 12:00 AM CDT [id number] IMPRESSION/REPORT/PLAN 1. Eustachian tube dysfunction. 2. Headache. [...] MARVIN MD On: 01/15/2012 10:03 AM Source: [facility] Document Id: [id number] documented in this encounter Miscellaneous Notes Miscellaneous - Vinicio Marvin M.D. - 01/12/2012 6:46 PM CDT Ambulatory Depart Summary [address] [address] Visit Information Name: PUNEET FRIED Visit Date: [...] your provider for clarification. Additional Information: Source: [facility] POWERCHART Document Id: [id number] Miscellaneous - Vinicio Marvin M.D. - 01/12/2012 6:46 PM CDT Ambulatory Patient Summary [address] [address] Visit Information Name: PUNEET FRIED Current Date: [...] No Appointments found Your Goals/Additional instructions: Source: [facility] POWERCHART Document Id: [id number] Miscellaneous - Josephine Acosta L.PBrittaneyN. - 01/12/2012 [...] KARLA JOSEPHINE - 01/12/2012 18:07 CDT [facility] Document Id: [id number] CDT!24 Miscellaneous - Josephine Acosta L.P.N. - 01/12/2012 6:01 PM CDT Adult Check Out Cashier Intake/History Adult Check Out Cashier Intake/History Entered On: 01/12/2012 18:06 CDT Performed [...] ACOSTA - 01/12/2012 18:01 CDT Allergy [facility] Document Id: [id number] CDT!33 documented in this encounter Plan of Treatment Not on filedocumented as of this encounter Visit Diagnoses Not on filedocumented in this encounter
--- OUTSIDE RECORDS SUMMARY | 2022-08-03 09:46 | XMS_ITS | Encounter Summary ---
:1985 Author Organization [facility] Address [address] [place] [address] Care Team Providers Name Role Phone Unavailable [...] How often do you attend baptism or baptism More than 4 time s [...]
--- OUTSIDE RECORDS SUMMARY | 2022-08-03 09:46 | XMS_ITS | Encounter Summary ---
:1985 Author Organization [facility] Address [address] [place] [address] Care Team Providers Name Role Phone Unavailable [...] Magallanes, Ph.D. - 04/15/2012 12:00 AM CDT [id number] LETTER Carol Dowell Juarez [address] [place] [phone] April 15, 2012 Dear Carol: Our records [...] to keep this appointment, please call the [facility] Department as soon as possible at or toll-free to reschedule or cancel. We look forward to hearing from you. Thank you, [facility] Source: [facility] RWMCHXTRANSXRTFSYS Document Id: [id number] documented in this encounter Plan of Treatment Not on filedocumented as of this encounter Visit Diagnoses Not on filedocumented in this encounter
--- OUTSIDE RECORDS SUMMARY | 2022-08-03 09:46 | XMS_ITS | Encounter Summary ---
:1985 Author Organization [facility] Address [address] [place] [address] Care Team Providers Name Role Phone Unavailable Primary Care Provider Unavailable Encounter Details Date Type Department Care Team Description 04/05/2012 Hospital Encounter HX [facility] Gildardo Marvin M.D. [address] [place] [phone] (Wo rk) Social History Tobacco Use [...] How often do you attend christian or synagogue More than 4 time s [...] Marvin M.D. - 04/05/2012 7:55 AM CDT [id number] IMPRESSION/REPORT/PLAN 1) Bronchitis with bacterial sinusitis with [...] MARVIN MD On: 04/06/2012 11:36 AM Source: [facility] MHSDOLBEYNONRADSYS Document Id: [id number] documented in this encounter Miscellaneous Notes Miscellaneous - Dung Noonan R.N. - 04/30/2014 3:53 PM CDT bee sting, ER From: DUNG NOONAN RN Sent: 04/30/2014 15:53:29 CDT Subject: bee sting, ER Pt has no PCP here, calls with bee sting on wrist yesterday getting worse, hand warm and red, swollen from fingers up wrist, breathing fine she reports. ER advised and notified. Source: [facility] POWERCHART Document Id: [id number] Electronically signed by Conversion, [facility] Production Inspector [id number] at 01/23/2017 4:51 PM CDT Miscellaneous - Vinicio Marvin M.D. - 04/05/2012 9:05 AM CDT Ambulatory Patient Summary [place] [id number] Visit Information Name: PUNEET FRIED Current Date: [...] No Appointments found Your Goals/Additional instructions: Source: [facility] POWERCHART Document Id: [id number] Leilani - Vinicio Marvin M.D. - 04/05/2012 9:05 AM CDT Ambulatory Depart Summary [address] [address] Visit Information Name: PUNEET FRIED Visit Date: [...] your provider for clarification. Additional Information: Source: [facility] POWERCHART Document Id: [id number] Leilani - Roosevelt Rodriges L.P.N. - 04/05/2012 8:07 AM CDT Adult Labor Relations Director Intake/History Adult Labor Relations Director Intake/History Entered On: 04/05/2012 8:11 CDT Performed [...] ACOSTA; Reviewed Date: 03/24/2012 11:30 CDT [facility] P[facility] Document Id: [id number] documented in this encounter Plan of Treatment Not on filedocumented as of this encounter Visit Diagnoses Not on filedocumented in this encounter
--- OUTSIDE RECORDS SUMMARY | 2022-08-03 09:46 | XMS_ITS | Encounter Summary ---
:1985 Author Organization [facility] Address [address] [place] [address] Care Team Providers Name Role Phone Unavailable [...]
--- OUTSIDE RECORDS SUMMARY | 2022-08-03 09:46 | XMS_ITS | Encounter Summary ---
:1985 Author Organization [facility] Address [address] [place] [address] Care Team Providers Name Role Phone Unavailable Primary Care Provider Unavailable Encounter Details Date Type Department Care Team Description 08/02/2013 Hospital Encounter HX NO MAPPING Berny Garcia M.D. [address] [place], [place] [phone] (Wo rk) Social [...] often do you attend oriental orthodox or protestant More than 4 time s [...]
--- OUTSIDE RECORDS SUMMARY | 2022-08-03 09:46 | XMS_ITS | Encounter Summary ---
:1985 Author Organization [facility] Address [address] [place] [address] Care Team Providers Name Role Phone Unavailable Primary Care Provider Unavailable Encounter Details Date Type Department Care Team Description 01/21/2012 Hospital Encounter [facility] [address] [place] [phone] (Wo rk) Social History Tobacco Use [...] How often do you attend confucianism or quaker More than 4 time s [...] Farias M.D. - 01/21/2012 12:00 AM CDT [id number] CHIEF COMPLAINT/REASON FOR VISIT Headache. HISTORY OF [...] has symmetric and coordinated finger tapping and giax-yt-wntc rubbing. Strength is 5 out of 5 [...] NATHAN MD On: 01/26/2012 07:59 AM Source: [facility] MHSDOLBEYNONRADSYS Document Id: [id number] documented in this encounter Miscellaneous Notes Miscellaneous - Leonora Farias M.D. - 01/21/2012 9:53 AM CDT Ambulatory Depart Summary [address] [address] Visit Information Name: PUNEET FRIED Visit Date: [...] your provider for clarification. Additional Information: Source: [facility] POWERCHART Document Id: [id number] Miscellaneous - Leonora Farias M.D. - 01/21/2012 9:53 AM CDT Ambulatory Patient Summary [place] [phone] [place] [address] Visit Information Name: PUNEET FRIED Current Date: [...] No Appointments found Your Goals/Additional instructions: Source: [facility] POWERCHART Document Id: [id number] Miscellaneous - Bessy Herrera, LBrittaneyP.N. - 01/21/2012 9:21 AM CDT Adult Hydraulic Blocker Intake/History Adult Hydraulic Blocker Intake/History Entered On: 01/21/2012 9:28 CDT Performed [...] Preferred Communication Mode : Verbal Languages : Czech BESSY HERRERA LPN, 01/21/2012 9:21 CDT Subjective [...] Onset Date: Unspecified ; Created By: GLEN AOCSTA; Reaction Status: Active ;Category: Drug ; Substance: penicillins ; Type: Allergy ; Updated By: GLEN ACOSTA; Reviewed Date: 01/12/2012 18:06 CDT Source: [employer] Document Id: [id number] documented in this encounter Plan of Treatment Not on filedocumented as of this encounter Visit Diagnoses Not on filedocumented in this encounter
--- OUTSIDE RECORDS SUMMARY | 2022-08-03 09:46 | XMS_ITS | Encounter Summary ---
:1985 Author Organization [facility] Address [address] [place] [address] Care Team Providers Name Role Phone Unavailable Primary Care Provider Unavailable Encounter Details Date Type Department Care Team Description 04/07/2013 Hospital Encounter [facility] Ysabel Reyes R.NBrittaney [address] [phone] Social History Tobacco Use Types [...] Reyes R.N. - 04/07/2013 12:00 AM CDT [id number] Bug bite on Wednesday when she was in [place]. Pt stated bug was a flying not [...] Allergies reviewed and problem list reviewed. [facility] RWHXTRANSXRTFSYS Document Id: [id number] documented in this encounter Plan of Treatment Not on filedocumented as of this encounter Visit Diagnoses Not on filedocumented in this encounter
--- OUTSIDE RECORDS SUMMARY | 2022-08-03 09:46 | XMS_ITS | Encounter Summary ---
:1985 Author Organization [facility] Address [address] [place] [address] Care Team Providers Name Role Phone Unavailable [...] How often do you attend amish or zoroastrianism More than 4 time s [...]
--- OUTSIDE RECORDS SUMMARY | 2022-08-03 09:46 | XMS_ITS | Encounter Summary ---
:1985 Author Organization [facility] Address [address] [place] [address] Care Team Providers Name Role Phone Unavailable Primary Care Provider Unavailable Encounter Details Date Type Department Care Team Description 08/28/2011 Hospital Encounter HX [facility] Celia Schwab RRoverto Social History Tobacco Use [...] How often do you attend buddhist or faith More than 4 time s [...] Dejesus R.N. - 08/28/2011 12:00 AM CST [id number] Appointment requested for: check my IUD Subjective [...] Obstetrics &Gynecology page 261, 264 Appointment scheduled: weight tester today Source: [facility] RWHXTRANSXRTFSYS Document Id: [id number] documented in this encounter Plan of Treatment Not on filedocumented as of this encounter Visit Diagnoses Not on filedocumented in this encounter
--- OUTSIDE RECORDS SUMMARY | 2022-08-03 09:46 | XMS_ITS | Encounter Summary ---
:1985 Author Organization [facility] Address [address] [place] [address] Care Team Providers Name Role Phone Unavailable Primary Care Provider Unavailable Encounter Details Date Type Department Care Team Description 03/15/2014 Hospital Encounter [facility] Jessica Bear M.D. [address] [place], [place] [phone] (Wo rk) Social History [...] Results Letter 16 March 2014 PUNEET FRIED [address] [place] [id number] Dear PUNEET FRIED, I am pleased to [...] 03/15/2014 150 - 450 Sincerely, MICHELLE BEAR [address] [place] [phone] Electronic Signature Electronically Signed By: MICHELLE BEAR MD On: 16 March 2014 This document has images extracted. Source: [facility] POWERCHART Document Id: [id number] Electronically signed by Conversion, [facility] Rim Roller Operator [id number] at 01/19/2017 1:49 PM CDT documented in [...] Erythrocytes 5.16 (H) 3.90 - POWERCHART 5.03 [id number] HX RDW 13.3 11.9 - POWERCHART 15.5 [...] S MGDL eGFR >60 >=60 POWERCHART Black/ [id number] Taiwanese HXeGFR (MDRD) >60 >=60 POWERCHART [id number] Comment: Results are in mL/min/1.73m CKD Stage [...]
--- OUTSIDE RECORDS SUMMARY | 2022-08-03 09:46 | XMS_ITS | Encounter Summary ---
:1985 Author Organization [facility] Address [address] [place] [address] Care Team Providers Name Role Phone Unavailable Primary Care Provider Unavailable Encounter Details Date Type Department Care Team Description 08/28/2011 Hospital Encounter HX NO MAPPING Nelson Bernal M.D. [address] [place] [phone] (Wo rk) Social History Tobacco [...] How often do you attend temple or muslim More than 4 time s [...]
--- OUTSIDE RECORDS SUMMARY | 2022-08-03 09:46 | XMS_ITS | Encounter Summary ---
:1985 Author Organization [facility] Address [address] [place] [address] Care Team Providers Name Role Phone Unavailable [...] How often do you attend congregational or yazidi More than 4 time s [...]
--- OUTSIDE RECORDS SUMMARY | 2022-08-03 09:46 | XMS_ITS | Encounter Summary ---
:1985 Author Organization [facility] Address [address] [place] [address] Care Team Providers Name Role Phone Unavailable Primary Care Provider Unavailable Encounter Details Date Type Department Care Team Description 03/13/2014 Hospital Encounter [facility] Michelle Bear M.D. [address] [place] [phone] (Wo rk) Social History Tobacco Use Types [...] How often do you attend advent or spiritism More than 4 time s [...] Bear M.D. - 03/13/2014 1:30 PM CDT [id number] A 28-year-old female is here to establish care. She lives in [place] with the father of her son, who is 6 years old. She states they have been together for about 8 years. They are thinking about perhaps another this fall. She delivered here in [place] [address] Kin[address]. Her [...] I would like to refer her to [place], to the bariatric program. I believe that [...] BEAR MD On: 03/14/2014 12:48 PM Source: [facility] MHSDOLBEYNONRADSYS Document Id: [id number] documented in this encounter Miscellaneous Notes Miscellaneous - Nicolette Moise, JOSEFA, C.N.P. - 05/28/2014 2:00 PM CDT Ambulatory Patient Summary [facility] [address], [address] [place], [place] [id number] Visit Information Name: PUNEET FRIED [facility] Number: [id number] Current Date: 05/28/2014 14:00:54 Physicians [...] detail needed. Your Goals/Additional instructions: Source: [facility] POWERCHART Document Id: [id number] Miscellaneous - Nicolette Moise APRN, C.N.P. - 05/28/2014 2:00 PM CDT Ambulatory Discharge Medication List [facility] [address] [place], [place] [phone] Visit Information Name: PUNEET FRIED [facility] Number: [id number] Visit Date: 05/28/2014 14:00:53 Attending [...] By: Signed On: Additional Information: Source: [facility] POWERCHART Document Id: [id number] Miscellaneous - Jory Coppola L.P.N. - 03/14/2014 [...] COPPOLA LPN - 03/14/2014 8:25 CDT Source: [employer] Document Id: [id number] CDT!13 Miscellaneous - Jory Coppola L.P.N. - 03/13/2014 1:50 PM CDT Adult Second Language Tutor Intake/History Adult Second Language Tutor Intake/History Entered On: 03/13/2014 13:53 CDT Performed [...] Information Given By : Patient Languages : Maltese JORY COPPOLA LPN - 03/13/2014 13:50 CDT [...] COPPOLA LPN - 03/13/2014 13:50 CDT Source: [employer] Document Id: [id number] CDT!37 Miscellaneous - Jory Coppola L.P.N. - [...] CDT Psychosocial Domestic Abuse Concerns : None Jainism Preference : No qualifying data available. JORY COPPOLA LPN - 03/13/2014 13:49 CDT Advance Directive Advanced Directives : No JORY COPPOLA LPN - 03/13/2014 13:49 CDT Educ Needs Learning Style Preference Adult Grid Patient : None Family : None JORY COPPOLA LPN - 03/13/2014 13:49 CDT [facility] Document Id: [id number]!40 documented in this encounter Plan of Treatment Not on filedocumented as of this encounter Visit Diagnoses Not on filedocumented in this encounter Additional Health Concerns Assessment Noted Time PHQ-9 Depression Total Score: 11 03/14/2014 8:25 AM CD T documented as of this encounter
--- OUTSIDE RECORDS SUMMARY | 2022-08-03 09:46 | XMS_ITS | Encounter Summary ---
:1985 Author Organization [facility] Address [address] [place] [address] Care Team Providers Name Role Phone Unavailable Primary Care Provider Unavailable Encounter Details Date Type Department Care Team Description 03/24/2012 Hospital Encounter [facility] [address] [place] [phone] (Wo rk) Social History Tobacco Use [...] Farias M.D. - 03/24/2012 12:00 AM CDT [id number] CHIEF COMPLAINT/REASON FOR VISIT Urinary frequency. HISTORY [...] of the content Leonora Brito M.D./[facility] Electronically Signed By: LEONORA NATHAN MD On: 04/05/2012 10:30 AM Modified by and Electronically Signed by: LEONORA NATHAN MD On: 04/05/2012 10:29 AM Source: [facility] MHSDOLBEYNONRADSYS Document Id: [id number] documented in this encounter Miscellaneous Notes Miscellaneous - Leonora Farias M.D. - 03/24/2012 11:41 AM CDT Ambulatory Patient Summary [place] [phone] [place] [address] Visit Information Name: PUNEET FRIED Current Date: [...] found Your Goals/Additional instructions: Source: [facility] POWERCHART Document Id: [id number] Leonora Russell M.D. - 03/24/2012 11:41 AM CDT Ambulatory Depart Summary [address] [address] Visit Information Name: PUNEET FRIED Visit Date: [...] for clarification. Additional Information: Source: [facility] [employer]CHART Document Id: [id number] Mimi Gaines L.P.N. - 03/24/2012 11:23 AM CDT Adult Nephrology Social Worker Intake/History Adult Nephrology Social Worker Intake/History Entered On: 03/24/2012 11:30 CDT Performed [...] Preferred Communication Mode : Verbal Languages : [place] MIMI HERRERA LPN, RT - 03/24/2012 11:23 [...] ACOSTA; Reviewed Date: 01/21/2012 9:28 CDT Source: [facility] POWERCHART Document Id: [id number] documented in this encounter Plan of Treatment [...] Results Urine Microscopic (03/24/2012 11:34 AM CDT) [facility] Method Time Signature HXUr WBC 10-25 [...] POWERCHART Urinalysis, Routine (03/24/2012 11:34 AM CDT) [facility] Method Time Signature HXUr Color Yellow POWERCHART Appearance Slightly POWERCHART Cloudy Glucose Negative POWERCHART HXBILIRUBIN Negative POWERCHART Ketones, QL(U) Negative POWERCHART Specific 1.025 1.000 - POWERCHART [place], POCT, U 1.030 pH, POCT, Urine 5.5 [...]
--- OUTSIDE RECORDS SUMMARY | 2022-08-03 09:46 | XMS_ITS | Encounter Summary ---
:1985 Author Organization [facility] Address [address] [place] [address] Care Team Providers Name Role Phone Unavailable Primary Care Provider Unavailable Encounter Details Date Type Department Care Team Description 08/28/2011 Hospital Encounter HX NO MAPPING Nelson Bernal M.D. [address] [place] [phone] (Wo rk) Social History Tobacco [...] How often do you attend mu-ism or latter day More than 4 time [...]
--- OUTSIDE RECORDS SUMMARY | 2022-08-03 09:46 | XMS_ITS | Encounter Summary ---
:1985 Author Organization [facility] Address [address] [place] [address] Care Team Providers Name Role Phone Unavailable Primary Care Provider Unavailable Encounter Details Date Type Department Care Team Description 04/30/2014 Hospital Encounter HX [facility] ED Remi Marvin M.D. [address] [address] (Wo rk) Social History Tobacco [...] 04/30/2014 7:01 PM CDT ED Discharge Instructions [address] [address] Name: PUNEET FRIED Date of : 1985 12:00 AM Visit Date: 04/30/2014 4:05 PM [facility] Number: [id number] Address: [address] [place] [phone] Primary Care Provider: MICHELLE BEAR MD IMPORTANT: [facility] in [place] would like to thank you for allowing us to assist you with your healthcare needs. The following includes patient education materials and informationregarding your injury/illness. Diagnosis: Allergy Bee Sting Active; Hives; Reaction Allergic Active Follow-Up Instructions: With: Address: When: MICHELLE BEAR [address] [place] [address] [facility] (1) Within As Needed Comments: For recheck If symptoms worsen Your Upcoming Appointments: Date Time Location Provider No Appointments found Patient Education Materials: [id number] ALLERGIC REACTION, OTHER [local] You are having [...] Colored fluid draining from the wound ?? 2851-8647 [place] [address]. All rights reserved. This information is not intended as a substitute for professional medical care. Always follow your healthcare professional's instructions. [id number] MEDICATION: ZYRTEC Zyrtec (generic name is cetirizine) [...] any questions that you may have.] ?? 1216-8074 [place] [address]. All rights reserved. This information is not intended as a substitute for professional medical care. Always follow your healthcare professional's instructions. [id number] INSECT BITE Insects most often bite to [...] HOME CARE Medications: The doctor may prescribe fknt-kdi-ebtpgaq (OTC) medications to help relieve itching andswelling. [...] you have trouble breathing, call 911) ?? 9025-4134 [facility], [address] [place] [address]. All rights reserved. This information is not [...] document has images extracted. Please consider using [employer] for all your patient education needs. Source: [facility] POWERCHART Document Id: [id number] Bambi Addison R.N. - 04/30/2014 7:01 PM CDT ED Depart Summary [facility] Emergency Department Clinical Discharge Summary PERSON INFORMATION Name PUNEET FRIED Age 28 Years 1985 12:00 AM Sex Female Language Citizen Of [place] PCP MICHELLE BEAR MD Marital Status Single Visit Id Visit Reason Hand pain-swelling; Bee Sting Specialty Enc Type Emergency Med Service Emergency Medicine Referred by Track Group [facility] ED Discharge 04/30/2014 6:20 PM Tracking Id [id number] Checkout 04/30/2014 6:20 PM Checkin 04/30/2014 4:05 PM Acuity 4 -Less Urgent Dispo Type * Discharged to Home or Self Care Arrival 04/30/2014 4:05 PM Reg Status Complete LOS 000 02:15 Address: [address] [place] [phone] Comment: PROVIDER INFORMATION Provider Role Provider Contact Time RUIZ MARVIN MD ED Provider 04/30/14 16:37 BAMBI ADDISON TYPISTS SUPERVISOR Nurse 04/30/14 17:21 DIAGNOSIS Allergy Bee Sting Active; Hives; Reaction Allergic Active Comment: PATIENT EDUCATION INFORMATION Instructions: ALLERGIC REACTION, Other (Local); ZYRTEC; INSECT BITE Follow up: With: Address: When: MICHELLE BEAR [address] [place] [address] [phone] [employer] (2) Within As Needed Comments: For recheck If symptoms worsen Source: [employer] Document Id: [id number] documented in this encounter ED Notes Bambi [...] ADDISON RN - 04/30/2014 18:59 CDT Source: [employer] Document Id: [id number] CDT!9 Bambi Addison R.N. - 04/30/2014 6:57 [...] ADDISON RN - 04/30/2014 18:57 CDT Source: [employer] Document Id: [id number] CDT!7 Bambi Addison R.N. - 04/30/2014 6:10 [...] ADDISON RN - 04/30/2014 18:55 CDT Source: [employer] Document Id: [id number] CDT!11 Bambi Addison R.N. - 04/30/2014 5:45 [...] ADDISON RN - 04/30/2014 18:52 CDT Source: [employer] Document Id: [id number] CDT!19 Bambi Addison R.N. - 04/30/2014 5:30 [...] ADDISON RN - 04/30/2014 18:50 CDT Source: [employer] Document Id: [id number] CDT!13 Ruiz Marvin M.D. - 04/30/2014 5:22 [...] (maternal) Comments: 03/13/2014 13:47 - JORY COPPOLA PATHOLOGY LABORATORY DIRECTOR ear Grandfather (maternal) Comments: 03/13/2014 13:47 - JORY COPPOLA LPN larynx Cystic fibrosis Sister [place] - Lung cancer Grandmother (paternal, ) Comments: 03/13/2014 13:47 - JORY COPPOLA PATHOLOGY LABORATORY DIRECTOR brain cancer Hypothyroidism Mother Myocardial infarction Father: [...] PM This document has images extracted. Source: [facility] POWERCHART Document Id: [id number]} Bambi Addison RRoverto - 04/30/2014 4:22 PM [...] Medical ; Code: 300.4 ; Contributor System: [facility]_HX_PR_UPLOAD ; Last Updated: 11/18/2013 19:04 CDT ; Life Cycle Status: Active ; Vocabulary: ICD-9-CM ; Comments: - Dysthymic disorder Headache (ICD-9-CM :784.0 ) Name of Problem: Headache ; Onset Date: 10/24/2007 ; Confirmation: Confirmed ; Classification: Medical ; Code: 784.0 ; Contributor System: [facility]_HX_PR_UPLOAD ; Last Updated: 11/18/2013 19:04 [...] Medical ; Code: V22.2 ; Contributor System: [employer] ; Last Updated: 01/21/2012 9:41 CDT ; Life Cycle Date: 01/12/2012 ; Life Cycle Status: Active ; Responsible Provider: GLEN ACOSTA; Vocabulary: ICD-9-CM Diagnoses(Active) Hand pain-swelling Date: 04/30/2014 ; Diagnosis Type: Reason For Visit ; Confirmation: Complaint of ; Clinical Dx: Hand pain-swelling ; Classification: Medical ; Clinical Service: Emergency medicine ; Code: PNED ; Probability: 0 ; Diagnosis Code: [id number] Triage Chief Complaint Description : see triage note Mode of Arrival ED : Private vehicle, Ambulatory Track : Medical Languages : Citizen Of [place] Is Patient Female and 13-50 no hysterectomy [...] ADDISON RN - 04/30/2014 16:22 CDT Source: [facility] [employer] Document Id: [id number] CDT!53 Bambi Addison R.N. - 04/30/2014 4:11 [...] Medical ; Code: 300.4 ; Contributor System: [facility]_HX_PR_UPLOAD ; Last Updated: 11/18/2013 19:04 CDT ; Life Cycle Status: Active ; Vocabulary: ICD-9-CM ; Comments: - Dysthymic disorder Headache (ICD-9-CM :784.0 ) Name of Problem: Headache ; Onset Date: 10/24/2007 ; Confirmation: Confirmed ; Classification: Medical ; Code: 784.0 ; Contributor System: [employer]_PR_UPLOAD ; Last Updated: 11/18/2013 19:04 CDT ; [...] Medical ; Code: V22.2 ; Contributor System: [employer] ; Last Updated: 01/21/2012 9:41 CDT ; Life Cycle Date: 01/12/2012 ; Life Cycle Status: Active ; Responsible Provider: GLEN ACOSTA; Vocabulary: ICD-9-CM Diagnoses(Active) Hand pain-swelling Date: 04/30/2014 ; Diagnosis Type: Reason For Visit ; Confirmation: Complaint of ; Clinical Dx: Hand pain-swelling ; Classification: Medical ; Clinical Service: Emergency medicine ; Code: PNED ; Probability: 0 ; Diagnosis Code: [id number] Triage Chief Complaint Description : was stung by bee last grace and awoke this am with left wrist and hand swollen and red. Information Given By : Patient Accompanied By : Alone Mode of Arrival ED : Private vehicle, Ambulatory Track : Medical Languages : Citizen Of [place] Patient Informed of Triage Location : Emergency [...] : 4 -Less Urgent Tracking Group : [facility] ED BAMBI ADDISON SHRUTHI - 04/30/2014 16:11 CDT Allergy (As Of: 04/30/2014 16:17:45 CDT) Allergies (Active) penicillins Estimated Onset Date: Unspecified ; Created By: GLEN ACOSTA; Reaction Status: Active ;Category: Drug ; Substance: penicillins ; Type: Allergy ; Updated By: GLEN ACOSTA; Reviewed Date: 03/13/2014 13:40 CDT Source: [employer] Document Id: [id number] CDT!49 documented in this encounter Miscellaneous Notes Miscellaneous - Bambi Addison R.N. - 04/30/2014 7:00 PM CDT Valuables/Belongings Valuables/Belongings Entered On: 04/30/2014 19:00 CDT Performed On: 04/30/2014 19:00 CDT by BAMBI ADDISON RN Valuables/Belongings Valuables/Belongings Grid Valuables with Patient Clothes, Patient Valuables : Pants, Shirt, Shoes, Undergarments Electronic Devices : Cell phone BAMBI ADDISON RN - 04/30/2014 19:00 CDT Source: [employer] Document Id: [id number] CDT!6 Miscellaneous - Bambi Addison R.N. - [...] Control : 5 Lynx Visit Level : 84188 Level 3 Treatments Prior to Arrival : None BAMBI ADDISON RN - 04/30/2014 19:00 CDT Source: [facility] [employer] Document Id: [id number] CDT!18 documented in this encounter Plan of Treatment Not on filedocumented as of this encounter Visit Diagnoses Not on filedocumented in this encounter Additional Health Concerns Assessment Noted Time PHQ-9 Depression Total Score: 16 04/02/2014 9:58 AM CD T documented as of this encounter
--- OUTSIDE RECORDS SUMMARY | 2022-08-03 09:46 | XMS_ITS | Encounter Summary ---
:1985 Author Organization [facility] Address [address] [place] [address] Care Team Providers Name Role Phone Unavailable [...] How often do you attend muslim or amish More than 4 time s [...] Marisol Couch - 08/11/2011 12:00 AM CST [id number] MARIA T Dowell [address] [address] [facility] August 11, 2011 Dear Carol: Our records indicate that you recently cancelled your appointment with Kaye Magallanes, Ph.D., L.P.. Thank you for notifying our office. Your next scheduled appointment is: Thursday, August 18, 2011 at 10:00 AM If you are unable to keep this appointment, please call the [facility] Department at your earliest convenience at or toll-free at to or cancel or reschedule. We look forward to hearing from you. Thank you, [facility] Source: [facility] Document Id: [id number] Electronically signed by Conversion, [facility] Security Services Specialist [id number] at 01/24/2017 1:37 AM CDT documented in this encounter Plan of Treatment Not on filedocumented as of this encounter Visit Diagnoses Not on filedocumented in this encounter
--- OUTSIDE RECORDS SUMMARY | 2022-08-03 09:46 | XMS_ITS | Encounter Summary ---
:1985 Author Organization [facility] Address [address] [place] [address] Care Team Providers Name Role Phone Unavailable [...]
--- OUTSIDE RECORDS SUMMARY | 2022-08-03 09:46 | XMS_ITS | Encounter Summary ---
:1985 Author Organization [facility] Address [address] [place] [address] Care Team Providers Name Role Phone Unavailable Primary Care Provider Unavailable Encounter Details Date Type Department Care Team Description 01/25/2013 Hospital Encounter HX [facility] Renuka Choi M.D. [address] [place] [phone] (Wo rk) Social History Tobacco [...] How often do you attend restoration or mu-ism More than 4 time s [...] Borges M.D. - 01/25/2013 9:45 AM CDT [id number] SUBJECTIVE: Carol Juarez is an 27 year [...] line 8-2-10, 06/11/10 Alcohol Use: Yes rare Tosser History: No history of STDs. PAP NIL [...] to procedure - YES. ASSESSMENT: Satisfactory annual hull sorter exam Desires Mirena IUD removal and re-insertion Obesity PLAN: Dx: 1) Pap smear 2) GC/CT 3) Fasting lipid profile/ fasting glucose/ TSH with reflex free T4 4) Mirena IUD removed/ IUD re-insertion. Will check a TVUS to confirm proper placement PE: Reviewed health maintenance including diet, regular exercise and periodic exams. Source: [facility] RWHXTRANSXRTFSYS Document Id: [id number] Electronically signed by Conversion, [facility] Horseback Riding Instructor [id number] at 01/18/2017 6:08 PM CDT documented in this encounter Miscellaneous Notes Miscellaneous - Nyasia Borges M.D. - 01/25/2013 9:45 AM CDT [id number] January 30, 2013 Carol Juarez [address] [place] [phone] Your doctor has requested to have you return for a thryoid, glucose, and cholesterol test at this time. You may call our office at [phone] in Obstetrics/Gynecology to schedule an appointment. Please ask to schedule a LAB APPOINTMENT Please disregard this notice if you already have had this lab repeated or have already made an appointment. Sincerely, Lory Hardy Source: [facility] RWHXTRANSXRTFSYS Document Id: [id number] Electronically signed by Conversion, [facility] Horseback Riding Instructor [id number] at 01/18/2017 6:08 PM CDT documented in [...] Volume Laterality 01/26/2013 2:02 PM CDT Narrative [facility] - 10/23/19 14 9:59 PM SUPERVISOR TREE TRIMMING Negative for C. trachomatis rRNA by blow mold operator mediated amplification. A negative result by blow mold operator media pipe amplification does not preclude the presence of C. trachomatis infection bec ause results are dependent on proper and adequate collection, absence of inhi bitors, and sufficient rRNA to be detected. Historical Provider LAB HISTORICAL ORDERS Performing Organization Address City/State/ZIP Code Phon e Number [facility] HX SN - SPEC - DESCRIPTION (01/26/2013 2:02 PM CDT) P athologist Signature [employer] [facility] Specimen (Source) Anatomical Collection Method Collection Time Re ceived Time Location / / Volume Laterality 01/26/2013 2:02 PM CDT Historical Provider LAB HISTORICAL ORDERS Performing Organization Address City/State/ZIP Code Phon e Number [facility] Chlamydia trachomatis Amplified RNA (01/26/2013 2:02 PM CDT) Specimen (Source) Anatomical Collection Method Collection Time Re ceived Time Location / / Volume Laterality 01/26/2013 2:02 PM CDT Narrative [facility] - 10/23/19 14 9:59 PM SUPERVISOR TREE TRIMMING Negative for N. gonorrhoeae rRNA by blow mold operator mediated amplification. A negative result by blow mold operator media pipe amplification does not preclude the presence of N. gonorrhoeae infection bec ause results are dependent on proper and adequate collection, absence of inhi bitors, and sufficient rRNA to be detected. Historical Provider LAB MICROBIOLOGY - GENERAL O RDERABLES Performing Organization Address City/State/ZIP Code Phon e Number [facility] HX SN - SPEC - DESCRIPTION (01/26/2013 2:02 PM CDT) P athologist Signature [employer]XSPECIM[employer] C[employer] [facility] Specimen (Source) Anatomical Collection Method Collection Time Re ceived Time Location / / Volume Laterality 01/26/2013 2:02 PM CDT Historical Provider LAB HISTORICAL ORDERS Performing Organization Address City/State/ZIP Code Phon e Number [facility] documented in this encounter Visit Diagnoses Not on filedocumented in this encounter
--- OUTSIDE RECORDS SUMMARY | 2022-08-03 09:46 | XMS_ITS | Encounter Summary ---
:1985 Author Organization [facility] Address [address] [place] [address] Care Team Providers Name Role Phone Unavailable [...] How often do you attend uatsdin or zoroastrian More than 4 time s [...] Magallanes, Ph.D. - 11/15/2012 12:00 AM CDT [id number] LETTER Carol Dowell Juarez [address] [place] [phone] November 15, 2012 Dear Carol: In reviewing my records, I realized that I have not seen you for sometime. I am writing, therefore, to determine if you are interested in continuing therapy and desire to schedule a new appointment. If you would like an appointment, please call our candy puller at [phone] or . Ifwe do not hear from you within two weeks, we will assume that your are not interested in scheduling further appointments. I look forward to hearing from you. Sincerely, Kaye Magallanes, Ph.D., L.P. Source: [facility] RWHXTRANSXRTFSYS Document Id: [id number] documented in this encounter Plan of Treatment Not on filedocumented as of this encounter Visit Diagnoses Not on filedocumented in this encounter
--- OUTSIDE RECORDS SUMMARY | 2022-08-03 09:46 | XMS_ITS | Encounter Summary ---
:1985 Author Organization [facility] Address [address] [place] [address] Care Team Providers Name Role Phone Unavailable Primary Care Provider Unavailable Encounter Details Date Type Department Care Team Description 08/28/[address] [facility] Jairon Wolf M.D. [address] [place] [phone] (Wo rk) Social History Tobacco [...] How often do you attend sabianist or buddhist More than 4 time s [...] Roberts M.D. - 08/28/2011 2:10 PM CST [id number] CC: follow up ER visit HPI: Carol [...] negative. GI: negative. BREAST: negative. : negative. LEAD FRONT DESK AGENT: no breast pain or new or enlarging lumps on self exam. CV: negative. PULMONARY: No shortness of breath, dyspnea on exertion, cough, or hemoptysis. MUSCULOSKELETAL: negative. PSYCH: negative. PHYSICAL EXAM: This is a well-developed, well-nourished female in no apparent distress. Vitals: BP 126/78 Ht 1.588 m (5' 2.5) Wt 122.244 kg (269 lb 8 oz) BMI 48.51 kg/m2 Source: [facility] Document Id: [id number] Electronically signed by Conversion, [facility] Tunnel Elastic Operator Chainstitch [id number] at 01/23/2017 2:30 PM CDT documented in this encounter Miscellaneous Notes Miscellaneous - Mary Teran L.PBrittaneyN. - 08/28/2011 2:10 PM CST [id number] Carol Juarez [address] [facility] [phone] [facility] August 31, 2011 Dear Ms. Juarez: I am writing to inform you the results of the laboratory tests you had done during your recent visitto the clinic. Your results included : STD tests (chlamydia and gonorrhea) were all negative. It was a pleasure to see you in the clinic. If you have any further questions or problems, please contact our office at [phone]. Sincerely, Dr Obie Roberts Dept. WARP TENSION TESTER [facility] Source: [facility] Document Id: [id number] Electronically signed by Conversion, [facility] Tunnel Elastic Operator Chainstitch [id number] at 01/23/2017 2:30 PM CDT documented in this encounter Plan of Treatment Not on filedocumented as of this encounter Procedures Procedure Name Priority Date/Time Associated Comments Diagnosis HX SN - SPEC - Routine 08/30/2011 3:07 PM Results for this DESCRIPTION BUILDER BEAM procedure are i n the results section. HX SN - SPEC - Routine 08/30/2011 3:07 PM Results for this DESCRIPTION BUILDER BEAM procedure are i n the results section. HX CHLAMYDIA Routine 08/30/2011 3:07 PM Results f or this TRACHOMATIS AMPLIFIED BUILDER BEAM proced ure are in DNA-ID the results section. CHLAMYDIA TRACHOMATIS Routine 08/30/2011 3:07 PM Results for this AMPLIFIED RNA BUILDER BEAM procedure are in the results section. documented in this encounter Results Chlamydia trachomatis Amplified RNA (08/30/2011 3:07 PM BUILDER BEAM) Specimen (Source) Anatomical Collection Method Collection Time Re ceived Time Location / / Volume Laterality 08/30/2011 3:07 PM BUILDER BEAM Narrative [facility] - 10/23/19 14 7:05 PM BUILDER BEAM Negative for N. gonorrhoeae rRNA by tower observer mediated amplification. A negative result by tower observer media pipe amplification does not preclude the presence of N. gonorrhoeae infection bec ause results are dependent on proper and adequate collection, absence of inhi bitors, and sufficient rRNA to be detected. Historical Provider LAB MICROBIOLOGY - GENERAL O RDERABLES Performing Organization Address City/[facility]/ZIP Code Phon e Number [facility] HX SN - SPEC - DESCRIPTION (08/30/2011 3:07 PM BUILDER BEAM) [facility] lettrs Method Time Signature HXSPECIMAN Endocervical [facility] Specimen (Source) Anatomical Collection Method Collection Time Re ceived Time Location / / Volume Laterality 08/30/2011 3:07 PM BUILDER BEAM Historical Provider LAB HISTORICAL ORDERS Performing Organization Address [facility] Phon e Number [facility] HX CHLAMYDIA TRACHOMATIS AMPLIFIED DNA-ID (08/30/2011 3:07 PM BUILDER BEAM) Specimen (Source) Anatomical Collection Method Collection Time Re ceived Time Location / / Volume Laterality 08/30/2011 3:07 PM BUILDER BEAM Narrative [facility] - 10/23/19 14 7:05 PM BUILDER BEAM Negative for C. trachomatis rRNA by tower observer mediated amplification. A negative result by tower observer media pipe amplification does not preclude the presence of C. trachomatis infection bec ause results are dependent on proper and adequate collection, absence of inhi bitors, and sufficient rRNA to be detected. Historical Provider LAB HISTORICAL ORDERS Performing Organization Address City/[facility]/ZIP Code Phon e Number [facility] HX SN - SPEC - DESCRIPTION (08/30/2011 3:07 PM BUILDER BEAM) [facility] lettrs Method Time Signature HXSPECIMAN Endocervical [facility] Specimen (Source) Anatomical Collection Method Collection Time Re ceived Time Location / / Volume Laterality 08/30/2011 3:07 PM BUILDER BEAM Historical Provider LAB HISTORICAL ORDERS Performing Organization Address City/[facility]/ZIP Code Phon e Number [facility] documented in this encounter Visit Diagnoses Not on filedocumented in this encounter
--- OUTSIDE RECORDS SUMMARY | 2022-08-03 09:46 | XMS_ITS | Encounter Summary ---
:1985 Author Organization [facility] Address [address] [place] [address] Care Team Providers Name Role Phone Unavailable [...] Historical Provider Ser - 08/17/2011 12:00 AM SUPERVISOR CONCRETE STONE FINISHING [id number] LETTER Carol Juarez [facility] [address] [facility] [address] [facility] August 17, 2011 Dear Carol: Our records indicate that you recently cancelled your appointment with Kaye Magallanes, Ph.D., L.P.. Thank you for notifying our office. Your next scheduled appointment is: August at 3:00 PM If you are unable to keep this appointment, please call the [facility] Department at your earliest convenience at or toll-free at to or cancel or reschedule. We look forward to hearing from you. Thank you, [facility] Source: [facility]ANSXRT[facility] Document Id: [id number] documented in this encounter Plan of Treatment Not on filedocumented as of this encounter Visit Diagnoses Not on filedocumented in this encounter
--- OUTSIDE RECORDS SUMMARY | 2022-08-03 09:46 | XMS_ITS | Encounter Summary ---
:1985 Author Organization [facility] Address [address] [place] [address] Care Team Providers Name Role Phone Unavailable [...] How often do you attend scientologist or mormonism More than 4 time s [...] Marisol Couch - 12/08/2011 12:00 AM CDT [id number] MARIA T Dowell [address] [address] [facility] December 08, 2011 Dear Carol: Our records indicate that you recently cancelled your appointment with Kaye Magallanes, Ph.D., L.P.. Thank you for notifying our office. Your next scheduled appointment is: Friday, December 23, 2011 at 12:00 PM If you are unable to keep this appointment, please call the [facility] Department at your earliest convenience at or toll-free at to or cancel or reschedule. We look forward to hearing from you. Thank you, [facility] Source: [facility] Document Id: [id number] Electronically signed by Conversion, [facility] Cable Installer Repairer Helper [id number] at 01/23/2017 8:25 PM CDT documented in this encounter Plan of Treatment Not on filedocumented as of this encounter Visit Diagnoses Not on filedocumented in this encounter
--- OUTSIDE RECORDS SUMMARY | 2022-08-03 09:46 | XMS_ITS | Encounter Summary ---
:[address] [facility] Address [address] [place] [address] Care Team Providers Name Role Phone Unavailable [...] often do you attend jehovah's witness or jewish More than 4 time s [...]
--- OUTSIDE RECORDS SUMMARY | 2022-08-03 09:47 | XMS_ITS | Encounter Summary ---
:1985 Author Organization [facility] Address [address] [place] [address] Care Team Providers Name Role Phone Unavailable [...] How often do you attend yarsanism or yazidi More than 4 time s [...]
--- OUTSIDE RECORDS SUMMARY | 2022-08-03 09:47 | XMS_ITS | Encounter Summary ---
:1985 Author Organization [facility] Address [address] [place] [address] Care Team Providers Name Role Phone Unavailable [...] often do you attend latter day or roman catholic More than 4 time [...]
--- OUTSIDE RECORDS SUMMARY | 2022-08-03 09:47 | XMS_ITS | Encounter Summary ---
:1985 Author Organization [facility] Address [address] [place] [address] Care Team Providers Name Role Phone Unavailable Primary Care Provider Unavailable Encounter Details Date Type Department Care Team Description 02/04/2010 Hospital Encounter [facility]X [facility] Provider, Histori huma Social History Tobacco [...] How often do you attend congregational or cheondoism More than 4 time s [...] Yousif M.D. - 02/04/2010 11:00 AM CDT [id number] Quick Note: Nursing: please call patient to inform her the wet prep and ultrasound were both normal. Thanks. Source: [facility] RWMCHXTRANSXSYS Document Id: [id number] Electronically signed by Conversion, [facility] Civil Engineer In Training [id number] at 01/24/2017 11:08 AM CDT documented in this encounter Plan of Treatment Not on filedocumented as of this encounter Visit Diagnoses Not on filedocumented in this encounter
--- OUTSIDE RECORDS SUMMARY | 2022-08-03 09:47 | XMS_ITS | Encounter Summary ---
:1985 Author Organization [facility] Address [address] [place] [address] Care Team Providers Name Role Phone Unavailable Primary Care Provider Unavailable Encounter Details Date Type Department Care Team Description 01/06/2011 Hospital Encounter [facility] Yamel Koch M.D. [address] [place] [address] (Wo rk) Social History Tobacco [...] How often do you attend islam or muslim More than 4 time s [...] Giang M.D. - 01/06/2011 10:45 AM CDT [id number] Chief Complaint Patient presents with Headache talk [...] future for headaches, if not improved. Source: [facility] Document Id: [id number] Electronically signed by Roland, [facility] [place] Utility Worker [id number] at 01/24/2017 6:23 AM CDT documented in this encounter Plan of Treatment Not on filedocumented as of this encounter Visit Diagnoses Not on filedocumented in this encounter
--- OUTSIDE RECORDS SUMMARY | 2022-08-03 09:47 | XMS_ITS | Encounter Summary ---
:1985 Author Organization [facility] Address [address] [place] [address] Care Team Providers Name Role Phone Unavailable Primary Care Provider Unavailable Encounter Details Date Type Department Care Team Description 09/29/2010 Hospital Encounter [facility] Yamel Koch M.D. [address] [place] [address] (Wo rk) Social History Tobacco [...] How often do you attend protestant or jehovah's witness More than 4 time [...] Giang M.D. - 09/29/2010 9:00 AM CST [id number] Chief Complaint: Chief Complaint Patient presents with [...] Rating was 13, which is improved. Source: [facility] RWMCHXTRANSXRTFSYS Document Id: [id number] Electronically signed by Roland, [facility] Oncology Navigator [id number] at 01/23/2017 9:40 PM CDT documented in this encounter Plan of Treatment Not on filedocumented as of this encounter Visit Diagnoses Not on filedocumented in this encounter
--- OUTSIDE RECORDS SUMMARY | 2022-08-03 09:47 | XMS_ITS | Encounter Summary ---
:1985 Author Organization [facility] Address [address] [place] [address] Care Team Providers Name Role Phone Unavailable Primary Care Provider Unavailable Encounter Details Date Type Department Care Team Description 02/04/2010 Hospital Encounter HX NO MAPPING Venu Yousif M.D. [address] [place], [place] [address] (Wo rk) Social History [...] How often do you attend christianity or restorationist More than 4 time s [...]
--- OUTSIDE RECORDS SUMMARY | 2022-08-03 09:47 | XMS_ITS | Encounter Summary ---
:1985 Author Organization [facility] Address [address] [place] [address] Care Team Providers Name Role Phone Unavailable Primary Care Provider Unavailable Encounter Details Date Type Department Care Team Description 03/24/2010 Hospital Encounter [facility] Yamel Koch M.D. [address] [place] [address] (Wo rk) Social History Tobacco [...] How often do you attend catholic or yazidi More than 4 time s [...] Giang M.D. - 03/24/2010 11:00 AM CDT [id number] Chief Complaint: Chief Complaint Patient presents with [...] or return if worsening or spreading. Source: [facility] RWMCHXTRANSXRTFSYS Document Id: [id number] Electronically signed by Conversion, [facility] Catastrophe Claims Supervisor [id number] at 01/24/2017 2:27 PM CDT documented in this encounter Miscellaneous Notes Miscellaneous - Venu Giang M.D. - 03/24/2010 11:00 AM CDT [id number] [facility] [address] [facility], [address] 03/24/2010 Carol Juarez TO WHOM IT MAY CONCERN: Carol Juarez was seen on 03/24/2010. Please excuse her 03/24/2010 due to a medical condition. She may return 03/25/2010 without restrictions. Cordially, Venu Giang M.D. [facility] Source: [facility] RWHXTRANSXRTFSYS Document Id: [id number] Electronically signed by Conversion, [facility] Catastrophe Claims Supervisor [id number] at 01/24/2017 2:27 PM CDT documented in this encounter Plan of Treatment Not on filedocumented as of this encounter Visit Diagnoses Not on filedocumented in this encounter
--- OUTSIDE RECORDS SUMMARY | 2022-08-03 09:47 | XMS_ITS | Encounter Summary ---
:1985 Author Organization [facility] Address [address] [place] [address] Care Team Providers Name Role Phone Unavailable Primary Care Provider Unavailable Encounter Details Date Type Department Care Team Description 06/27/2010 Hospital Encounter HX [facility] Moon Figueredo, P.A.-C. [address] [place] [address] (Wo rk) Social History Tobacco Use Types [...] How often do you attend temple or tenriism More than 4 time s [...] Ellsworth P.A.-C. 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 Takes OTC Tylenol [...] 1 Years of Education: 13 Occupational History [employer] Social History Main Topics Tobacco Use: [...] non-tender, No masses, organomegaly, Bowel sounds normoactive Teacher Aide Clerical: external genitalia normal, vaginal mucosa normal, cervix [...] and is in agreement with plan. Source: [facility] RWHXTRANSXRTFSYS Document Id: [id number] Electronically signed by Conversion, [facility] Excel Specialist [id number] at 01/24/2017 1:07 PM CDT documented in this encounter Miscellaneous Notes Miscellaneous - Conversion, Historical Provider Ser - 06/27/2010 10:00 AM CDT [id number] Carol Pearsonford [address] [place] [address] [facility] July 01, 2010 Dear Carol Juarez, I am happy to inform you that your recent cervical cancer screening test (PAP smear) was normal. Preventative screening such as this helps insure your health for years to come. Congratulations for taking care of yourself! Please contact my office if you have any further questions. [phone]. Sincerely, CASSIE Mcintosh OBSTETRICS/GYNECOLOGY [facility] Source: [facility] Document Id: [id number] Miscellaneous - Gloria Ellsworth P.A.-C. - 06/27/2010 10:00 AM CDT [id number] [facility] LEGAL SECRETARY RECEPTIONIST [address] [place] [address] July 03, 2010 Carol Juarez [address] [place] [address] [facility] Dear Ms. Juarez., This letter is sent to inform you of recent laboratory test results and to provide you with personalrecords of health information. Your Pap and chlamydia tests were negative. Thank you for allowing me to participate in your care. If you have any further questions or problems, please contact me at [phone]. Sincerely, Gloria Ellsworth PA-C Source: [facility] Document Id: [id number] Electronically signed by Conversion, [facility] Excel Specialist [id number] at 01/24/2017 1:07 PM CDT documented in this encounter Plan of Treatment Not on filedocumented as of this encounter Visit Diagnoses Not on filedocumented in this encounter
--- OUTSIDE RECORDS SUMMARY | 2022-08-03 09:47 | XMS_ITS | Encounter Summary ---
:[address] [facility] Address [address] [place] [address] Care Team Providers Name Role Phone Unavailable [...] How often do you attend bahai or catholic More than 4 time s [...]
--- OUTSIDE RECORDS SUMMARY | 2022-08-03 09:47 | XMS_ITS | Encounter Summary ---
:1985 Author Organization [facility] Address [address] [place] [address] Care Team Providers Name Role Phone Unavailable [...] How often do you attend catholic or congregational More than 4 time s [...]
--- OUTSIDE RECORDS SUMMARY | 2022-08-03 09:47 | XMS_ITS | Encounter Summary ---
:1985 Author Organization [facility] Address [address] [place] [address] Care Team Providers Name Role Phone Unavailable [...] How often do you attend latter-day or sabianist More than 4 time s [...] Historical Provider Ser - 07/16/2010 12:00 AM STROBOSCOPE OPERATOR [id number] LETTER Carol Juarez [address] [id number] [facility] [address] [facility] July 16, 2010 Dear Carol: Thank you for requesting an appointment for services at the [facility] Behavioral Health Department. Initial 45 minute appointments have been scheduled in our Psychology Department with: Kaye Magallanes, Ph.D., L.P. Sunday, August 01, 2010 at 11:00 AM Wednesday, August 29, 2010 at 10:00 AM Wednesday, September 12, 2010 at 11:00 AM located on the 3rd floor: [facility] at [address] [place] [address]. If the above scheduled appointment is not [...] be a pleasant and worthwhile one. Sincerely, [facility] Contact Information July 16, 2010 Intake done by: Humaira EMR#: [id number] NAME: Carol Juarez SSN: [id number] : 1985 Age: [age] year old Sex: female Spouse/ S.O.: - Parent/Guardian: - ADDRESS: [address] [place] [address] [place] Phone Numbers: [phone] (home) Phone Contact: Home: Yes Messages: Yes Written Contact: Home: Yes Work: No Payor: [facility] Plan: [facility] Product Type: Indemnity Court Ordered/Litigation No Referral Information Caller: self Referred by: elie Location: Referred to: monty Prior Contact with [facility]? No Date: - Doctor seen: NA Reason: [...] Packet Sent on Wait List No Source: [facility] RWHXTRANSXRTFSYS Document Id: [id number] documented in this encounter Plan of Treatment Not on filedocumented as of this encounter Visit Diagnoses Not on filedocumented in this encounter
--- OUTSIDE RECORDS SUMMARY | 2022-08-03 09:47 | XMS_ITS | Encounter Summary ---
:1985 Author Organization [facility] Address [address] [place] [address] Care Team Providers Name Role Phone Unavailable Primary Care Provider Unavailable Encounter Details Date Type Department Care Team Description 02/17/2010 Hospital Encounter HX NO MAPPING Berny Garcia M.D. [address] [place], [place] [address] (Wo rk) Social History [...] How often do you attend bahai or rastafarian More than 4 time s [...]
--- OUTSIDE RECORDS SUMMARY | 2022-08-03 09:47 | XMS_ITS | Encounter Summary ---
:1985 Author Organization [facility] Address [address] [place] [address] Care Team Providers Name Role Phone Unavailable Primary Care Provider Unavailable Encounter Details Date Type Department Care Team Description 07/09/2011 Hospital Encounter [facility] Yamel Koch M.D. [address] [place], [...] How often do you attend anabaptist or latter-day More than 4 time s [...] Historical Provider Ser - 07/09/2011 12:00 AM GRINDER SET UP OPERATOR SURFACE [id number] Carol Juarez [address] [place] [address] [facility] July 09, 2011 Dear Carol Juarez, APPOINTMENT REMINDER: Our record indicates that it is time for you to be seen for an office visit with Venu Yousif M.D. You may call our office at [phone] to schedule an appointment for your six (6) month follow-up visit. Please disregard this notice if you have already made an appointment. Sincerely, [facility] Source: [facility] Document Id: [id number] documented in this encounter Plan of Treatment Not on filedocumented as of this encounter Visit Diagnoses Not on filedocumented in this encounter
--- OUTSIDE RECORDS SUMMARY | 2022-08-03 09:47 | XMS_ITS | Encounter Summary ---
:1985 Author Organization [facility] Address [address] [place] [address] Care Team Providers Name Role Phone Unavailable Primary Care Provider Unavailable Encounter Details Date Type Department Care Team Description 08/06/2009 Hospital Encounter HX [facility] INPT[facility]OBSRV Shari Diaz M.D. [address] [place], [place] [address] (Wo rk) Social History [...]
--- OUTSIDE RECORDS SUMMARY | 2022-08-03 09:47 | XMS_ITS | Encounter Summary ---
:1985 Author Organization [facility] Address [address] [place] [address] Care Team Providers Name Role Phone Unavailable [...] How often do you attend holiness or mu-ism More than 4 time s [...]
--- OUTSIDE RECORDS SUMMARY | 2022-08-03 09:47 | XMS_ITS | Encounter Summary ---
:1985 Author Organization [facility] Address [address] [place] [address] Care Team Providers Name Role Phone Unavailable [...] How often do you attend christian or adventism More than 4 time s [...]
--- OUTSIDE RECORDS SUMMARY | 2022-08-03 09:47 | XMS_ITS | Encounter Summary ---
:1985 Author Organization [facility] Address [address] [place] [address] Care Team Providers Name Role Phone Unavailable [...]
--- OUTSIDE RECORDS SUMMARY | 2022-08-03 09:47 | XMS_ITS | Encounter Summary ---
:1985 Author Organization [facility] Address [address] [place] [address] Care Team Providers Name Role Phone Unavailable [...] How often do you attend catholic or jehovah's witness More than 4 time [...] Gregory Grewal - 10/13/2010 5:00 PM CST [id number] Adult female smoker had a fever yesterday [...] HENOK Garcia/jayson Source: [facility] RWHXTRANSXSYS Document Id: [id number] documented in this encounter Plan of Treatment Not on filedocumented as of this encounter Visit Diagnoses Not on filedocumented in this encounter
--- OUTSIDE RECORDS SUMMARY | 2022-08-03 09:47 | XMS_ITS | Encounter Summary ---
:1985 Author Organization [facility] Address [address] [place] [address] Care Team Providers Name Role Phone Unavailable [...] How often do you attend protestant or hinduism More than 4 time s [...]
--- OUTSIDE RECORDS SUMMARY | 2022-08-03 09:47 | XMS_ITS | Encounter Summary ---
:1985 Author Organization [facility] Address [address] [place] [address] Care Team Providers Name Role Phone Unavailable [...] How often do you attend sikh or evangelical More than 4 time s [...] Provider Ser - 02/17/2011 12:00 AM CDT [id number] LETTER Carol Juarez [address] [id number] [facility] [address] [facility] February 17, 2011 Dear Carol: [...] please call at your earliest convenience at [phone] or, toll-free at . Thank you, [facility] Source: [facility] Document Id: [id number] documented in this encounter Plan of Treatment Not on filedocumented as of this encounter Visit Diagnoses Not on filedocumented in this encounter
--- OUTSIDE RECORDS SUMMARY | 2022-08-03 09:47 | XMS_ITS | Encounter Summary ---
:1985 Author Organization [facility] Address [address] [place] [address] Care Team Providers Name Role Phone Unavailable [...]
--- OUTSIDE RECORDS SUMMARY | 2022-08-03 09:47 | XMS_ITS | Encounter Summary ---
:1985 Author Organization [facility] Address [address] [place] [address] Care Team Providers Name Role Phone Unavailable Primary Care Provider Unavailable Encounter Details Date Type Department Care Team Description 02/04/2010 Hospital Encounter [facility] Yamel Koch M.D. [address] [place] [address] (Wo rk) Social History Tobacco [...] How often do you attend muslim or sabianism More than 4 time s [...] Giang M.D. - 02/04/2010 9:00 AM CDT [id number] Chief Complaint Patient presents with Abdominal Pain [...] well. Wet prep reviewed and normal. Source: [facility] RWHXTRANSXRTFSYS Document Id: [id number] Electronically signed by Conversion, [facility] Panel Builder [id number] at 01/24/2017 11:08 AM CDT documented in this encounter Plan of Treatment Not on filedocumented as of this encounter Visit Diagnoses Not on filedocumented in this encounter
--- OUTSIDE RECORDS SUMMARY | 2022-08-03 09:47 | XMS_ITS | Encounter Summary ---
:1985 Author Organization [facility] Address [address] [place] [address] Care Team Providers Name Role Phone Unavailable Primary Care Provider Unavailable Encounter Details Date Type Department Care Team Description 06/02/[address] [facility] Ysabel Reyes R.NBrittaney [address] [address] Social History Tobacco Use Types [...] How often do you attend christianity or quaker More than 4 time s [...] Reyes R.N. - 06/02/2010 12:00 AM CDT [id number] Situation/What is the patients concern/need: N/v diarrhea, [...] Request: Apt with provider for headache. Source: [facility] Document Id: [id number] Electronically signed by Conversion, [facility] Administrative Asst [id number] at 01/24/2017 12:32 PM CDT documented in this encounter Plan of Treatment Not on filedocumented as of this encounter Visit Diagnoses Not on filedocumented in this encounter
--- OUTSIDE RECORDS SUMMARY | 2022-08-03 09:47 | XMS_ITS | Encounter Summary ---
:1985 Author Organization [facility] Address [address] [place] [address] Care Team Providers Name Role Phone Unavailable Primary Care Provider Unavailable Encounter Details Date Type Department Care Team Description 06/11/2010 Hospital Encounter [facility] Yamel Koch M.D. [address] [place] [address] (Wo rk) Social History Tobacco [...] How often do you attend zoroastrian or anabaptism More than 4 time s [...] Giang M.D. - 06/11/2010 2:45 PM CDT [id number] Chief Complaint: Chief Complaint Patient presents with [...] squeezing or trying to pop this. Source: [facility] RWMCHXTRANSXRTFSYS Document Id: [id number] Electronically signed by Conversion, [facility] Block Chopper Hand [id number] at 01/24/2017 12:32 PM CDT documented in this encounter Plan of Treatment Not on filedocumented as of this encounter Visit Diagnoses Not on filedocumented in this encounter
--- OUTSIDE RECORDS SUMMARY | 2022-08-03 09:47 | XMS_ITS | Encounter Summary ---
:1985 Author Organization [facility] Address [address] [place] [address] Care Team Providers Name Role Phone Unavailable Primary Care Provider Unavailable Encounter Details Date Type Department Care Team Description 07/16/2010 Hospital [facility] Yamel Koch M.D. [address] [place] [address] (Wo rk) Social History Tobacco [...] How often do you attend mormon or jainism More than 4 time s [...] Giang M.D. - 07/16/2010 10:30 AM CST [id number] Chief Complaint: Chief Complaint Patient presents with [...] psychotherapy. follow up in 1 month. Source: [facility] RWMCHXTRANSXRTFSYS Document Id: [id number] documented in this encounter Plan of Treatment Not on filedocumented as of this encounter Visit Diagnoses Not on filedocumented in this encounter
--- OUTSIDE RECORDS SUMMARY | 2022-08-03 09:47 | XMS_ITS | Encounter Summary ---
:1985 Author Organization [facility] Address [address] [place] [address] Care Team Providers Name Role Phone Unavailable Primary Care Provider Unavailable Encounter Details Date Type Department Care Team Description 05/19/[address] [facility] INPT/OBSRV Chon Babin M.D. [address] [place], [place] [id number] (Wo rk) Social History Tobacco Use Types [...] How often do you attend restorationist or islam More than 4 time s [...]
--- OUTSIDE RECORDS SUMMARY | 2022-08-03 09:47 | XMS_ITS | Encounter Summary ---
:1985 Author Organization [facility] Address [address] [place] [address] Care Team Providers Name Role Phone Unavailable Primary Care Provider Unavailable Encounter Details Date Type Department Care Team Description 07/15/2010 Hospital Encounter [facility]PRA Provider, [facility] Social History Tobacco Use Types Packs/Day Years [...] How often do you attend taoism or faith More than 4 time s [...] Provider Ser - 07/15/2010 12:00 AM CST [id number] TELEPHONE TRIAGE ENCOUNTER FORM Date: 07/15/2010 PCP: Venu Yousif MD, MD Patient Name: Carol Juarez Gender: female : 1985 Age: [age] year old Time: 4:45 PM Phone Numbers: [phone] (home) Pharmacy: [facility] ASSESSMENT Presenting Problem: Depression Subjective/objective: Patient [...] way prior to scheduled appointment time. Source: [facility] RWHXTRANSXRTFSYS Document Id: [id number] documented in this encounter Plan of Treatment Not on filedocumented as of this encounter Visit Diagnoses Not on filedocumented in this encounter
--- OUTSIDE RECORDS SUMMARY | 2022-08-03 09:47 | XMS_ITS | Encounter Summary ---
:1985 Author Organization [facility] Address [address] [place] [address] Care Team Providers Name Role Phone Unavailable [...] How often do you attend protestant or church More than 4 time s [...]
--- OUTSIDE RECORDS SUMMARY | 2022-08-03 09:47 | XMS_ITS | Encounter Summary ---
:1985 Author Organization [facility] Address [address] [place] [address] Care Team Providers Name Role Phone Unavailable Primary Care Provider Unavailable Encounter Details Date Type Department Care Team Description 06/02/2010 Hospital Encounter HX [facility] Yamel Koch M.D. [address] [place] [address] (Wo rk) Social History [...] How often do you attend jew or druze More than 4 time s [...] documented as of this encounter Progress Notes Ketih Giang M.D. - 06/02/2010 10:30 AM CDT [id number] Chief Complaint Patient presents with Headache episodes [...] nausea. Imitrex for headache, suspect migraine. [facility] Document Id: [id number] Electronically signed by Conversion, [facility] Maintenance Of Way Superintendent [id number] at 01/24/2017 12:32 PM CDT documented in this encounter Miscellaneous Notes Miscellaneous - Keith Giang M.D. - 06/02/2010 10:30 AM CDT [id number] [facility] [address] [facility], [address] 06/02/2010 Carol Juarez TO WHOM IT MAY CONCERN: Carol Juarez was seen on 06/02/2010. Please excuse her from 06/02/2010 until symptoms improve due to illness. Cordially, Keith Giang M.D. [facility] Source: [facility] Document Id: [id number] Electronically signed by Conversion, [facility] Maintenance Of Way Superintendent [id number] at 01/24/2017 12:32 PM CDT documented in this encounter Plan of Treatment Not on filedocumented as of this encounter Visit Diagnoses Not on filedocumented in this encounter
--- OUTSIDE RECORDS SUMMARY | 2022-08-03 09:47 | XMS_ITS | Encounter Summary ---
:1985 Author Organization [facility] Address [address] [place] [address] Care Team Providers Name Role Phone Unavailable [...] How often do you attend taoism or gnosticist More than 4 time s [...]
--- OUTSIDE RECORDS SUMMARY | 2022-08-03 09:47 | XMS_ITS | Encounter Summary ---
:1985 Author Organization [facility] Address [address] [place] [address] Care Team Providers Name Role Phone Unavailable Primary Care Provider Unavailable Encounter Details Date Type Department Care Team Description 02/17/2010 Hospital Encounter HX NO MAPPING Berny Garcia M.D. [address] [place], [place] [phone] (Wo rk) Social History [...] often do you attend latter day or moravian More than 4 time s [...]
--- OUTSIDE RECORDS SUMMARY | 2022-08-03 09:47 | XMS_ITS | Encounter Summary ---
:1985 Author Organization [facility] Address [address] [place] [address] Care Team Providers Name Role Phone Unavailable [...] How often do you attend buddhism or denominational More than 4 time s [...] Provider Ser - 11/13/2010 12:00 AM CDT [id number] MARIA T Juarez [address] [address] [facility] [phone] [facility] November 13, 2010 Dear Carol: Our records indicate that you recently cancelled your appointment with Kaye Magallanes, Ph.D., L.P.. Thank you for notifying our office. Your next scheduled appointment is: Sunday, November 28, 2010 at 11:00 AM If you are unable to keep this appointment, please call the [facility] Department at your earliest convenience at or toll-free at to or cancel or reschedule. We look forward to hearing from you. Thank you, [facility] Source: [facility] Document Id: [id number] documented in this encounter Plan of Treatment Not on filedocumented as of this encounter Visit Diagnoses Not on filedocumented in this encounter
--- OUTSIDE RECORDS SUMMARY | 2022-08-03 09:47 | XMS_ITS | Encounter Summary ---
:1985 Author Organization [facility] Address [address] [place] [address] Care Team Providers Name Role Phone Unavailable [...] How often do you attend mosque or gnosticist More than 4 time s [...]
--- OUTSIDE RECORDS SUMMARY | 2022-08-03 09:47 | XMS_ITS | Encounter Summary ---
:1985 Author Organization [facility] Address [address] [place] [address] Care Team Providers Name Role Phone Unavailable Primary Care Provider Unavailable Encounter Details Date Type Department Care Team Description 01/06/2011 Hospital Encounter [facility] Provider, Historic al Social History Tobacco [...] How often do you attend confucianism or moravian More than 4 time s [...]
--- OUTSIDE RECORDS SUMMARY | 2022-08-03 09:47 | XMS_ITS | Encounter Summary ---
:1985 Author Organization [facility] Address [address] [place] [address] Care Team Providers Name Role Phone Unavailable Primary Care Provider Unavailable Encounter Details Date Type Department Care Team Description 08/28/2010 Hospital Encounter [facility] Yamel Koch M.D. [address] [place] [address] (Wo rk) Social History Tobacco [...] How often do you attend yazidi or anabaptism More than 4 time s [...] Giang M.D. - 08/28/2010 8:30 AM CST [id number] Chief Complaint: Chief Complaint Patient presents with [...] Wellbutrin. follow up in 1 month. Source: [facility] RWMCHXTRANSXRTFSYS Document Id: [id number] documented in this encounter Plan of Treatment Not on filedocumented as of this encounter Visit Diagnoses Not on filedocumented in this encounter
--- OUTSIDE RECORDS SUMMARY | 2022-08-03 09:47 | XMS_ITS | Encounter Summary ---
:1985 Author Organization [facility] Address [address] [place] [address] Care Team Providers Name Role Phone Unavailable Primary Care Provider Unavailable Encounter Details Date Type Department Care Team Description 02/04/2010 Hospital Encounter HX NO MAPPING Venu Yousif M.D. [address] [place], [place] [phone] (Wo rk) [...] How often do you attend yazdanism or restoration More than 4 time s [...]
--- OUTSIDE RECORDS SUMMARY | 2022-08-03 09:48 | XMS_ITS | Encounter Summary ---
:1985 Author Organization [facility] Address [address] [place] [address] Care Team Providers Name Role Phone Unavailable [...] How often do you attend zoroastrian or nondenominational More than 4 time s [...]
--- OUTSIDE RECORDS SUMMARY | 2022-08-03 09:48 | XMS_ITS | Encounter Summary ---
:1985 Author Organization [facility] Address [address] [place] [address] Care Team Providers Name Role Phone Unavailable Primary Care Provider Unavailable Encounter Details Date Type Department Care Team Description 10/10/2007 Hospital Encounter [facility] Adonis Weir M.D. [address] [place] [phone] (Wo rk) Social History Tobacco [...] How often do you attend uatsdin or yazidi More than 4 time s [...] Provider Ser - 10/10/2007 11:00 AM CST [id number] Gestational Age: 28w 5d Rhogam Injection given today. BR No concerns wds Source: [facility] RWHXTRANSXRTFSYS Document Id: [id number] documented in this encounter Plan of Treatment Not on filedocumented as of this encounter Visit Diagnoses Not on filedocumented in this encounter
--- OUTSIDE RECORDS SUMMARY | 2022-08-03 09:48 | XMS_ITS | Encounter Summary ---
:1985 Author Organization [facility] Address [address] [place] [address] Care Team Providers Name Role Phone Unavailable Primary Care Provider Unavailable Encounter Details Date Type Department Care Team Description 01/20/2008 Hospital En[facility] Adonis Weir M.D. [address] [place] [phone] (Wo rk) Social History Tobacco [...] Hooks M.D. - 01/20/2008 10:45 AM CDT [id number] Carol is sent from Peds (there with [...] epigastric pain resolving Plan: Amylase, CBC [facility] Document Id: [id number] documented in this encounter Plan of Treatment Not on filedocumented as of this encounter Visit Diagnoses Not on filedocumented in this encounter
--- OUTSIDE RECORDS SUMMARY | 2022-08-03 09:48 | XMS_ITS | Encounter Summary ---
:1985 Author Organization [facility] Address [address] [place] [address] Care Team Providers Name Role Phone Unavailable [...] How often do you attend sikhism or jain More than 4 time s [...] Kinney M.D. - 01/02/2008 10:25 AM CDT [id number] [facility] [address] [facility], [address] Name: Carol Juarez Birthdate: 1985 Hospital Medical [...] 01/06/2008 Source: [facility] RWMCHXTRANSXRTFSYS Document Id: [id number] Electronically signed by [facility], [facility] Ship Construction Teacher [id number] at 01/25/2017 4:45 AM CDT Miscellaneous - Conversion, Historical Provider Ser - 01/02/2008 10:25 AM CDT [id number] [address] [place] [address] Name: Carol Juarez Birthdate: 1985 SSN: [id number] [facility] Allergy: No known allergies Discharge Date: 01/06/2008 Obstetrical Discharge Instructions Information given to patient: [facility] Immunization - Yes Notice of Phone [...] by). Source: [facility] RWHXTRANSXRTFSYS Document Id: [id number] documented in this encounter Plan of Treatment Not on filedocumented as of this encounter Visit Diagnoses Not on filedocumented in this encounter
--- OUTSIDE RECORDS SUMMARY | 2022-08-03 09:48 | XMS_ITS | Encounter Summary ---
:1985 Author Organization [facility] Address [address] [place] [address] Care Team Providers Name Role Phone Unavailable Primary Care Provider Unavailable Encounter Details Date Type Department Care Team Description 2007 Hospital Encounter HX [facility] OBGYN Provider, Histor ical Social [...] How often do you attend shinto or hindu More than 4 time s [...] Provider Ser - 2007 9:15 AM CDT [id number] Repeat bp 144/86. No sx pree. Amnisure, nitrazine negative. Will check [facility] labs and obs on LD. [facility] Document Id: [id number] documented in this encounter Miscellaneous Notes Miscellaneous - Conversion, Historical Provider Ser - 2007 9:15 AM CDT [id number] 2007 Carol Juarez [id number] OB Admit History & Physical OB ADMIT [...] Education: 13 Occupational History [employer] Social History Main Topics Tobacco Use: [...] Negative GI: Negative BREAST: Negative : Negative CHERRY PICKER OPERATOR: Negative CV: Negative PULMONARY: Negative MUSCULOSKELETAL: [...] labs. Rylee Grijalva MD MD Dept of METER INSTALLER Source: [facility] Document Id: [id number] documented in this encounter Plan of Treatment Not on filedocumented as of this encounter Visit Diagnoses Not on filedocumented in this encounter
--- OUTSIDE RECORDS SUMMARY | 2022-08-03 09:48 | XMS_ITS | Encounter Summary ---
:1985 Author Organization [facility] Address [address] [place] [address] Care Team Providers Name Role Phone Unavailable [...]
--- OUTSIDE RECORDS SUMMARY | 2022-08-03 09:48 | XMS_ITS | Encounter Summary ---
:1985 Author Organization [facility] Address [address] [place] [address] Care Team Providers Name Role Phone Unavailable Primary Care Provider Unavailable Encounter Details Date Type Department Care Team Description 10/03/2008 Hospital Encounter [facility] Provider, [facility] Social History Tobacco Use Types [...] How often do you attend jainism or mandaeism More than 4 time s [...] Provider Ser - 10/03/2008 12:00 AM CST [id number] TELEPHONE TRIAGE ENCOUNTER FORM Date: 10/03/2008 PCP: Venu Yousif MD, MD Patient Name: Carol Juarez Gender: female : 1985 Age: [age] year old Time: 11:35 AM Phone Numbers: [phone] (home) Pharmacy: [facility] [employer] [place] ASSESSMENT Presenting Problem: Skin infection/left hand [...] FOLLOW-UP Will see Eddie Mcnair today. Source: [facility] RWHXTRANSXRTFSYS Document Id: [id number] documented in this encounter Plan of Treatment Not on filedocumented as of this encounter Visit Diagnoses Not on filedocumented in this encounter
--- OUTSIDE RECORDS SUMMARY | 2022-08-03 09:48 | XMS_ITS | Encounter Summary ---
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 Source: [facility] RWHXTRANSXRTFSYS Document Id: [id number] documented in this encounter Plan of Treatment Not on filedocumented as of this encounter Visit Diagnoses Not on filedocumented in this encounter
--- OUTSIDE RECORDS SUMMARY | 2022-08-03 09:48 | XMS_ITS | Encounter Summary ---
:1985 Author Organization [facility] Address [address] [place] [address] Care Team Providers Name Role Phone Unavailable [...] How often do you attend yarsanism or confucianism More than 4 time s [...] Provider Ser - 2007 10:20 AM CDT [id number] [facility] Document Id: [id number] Miscellaneous - Conversion, Historical Provider Ser - 2007 10:20 AM CDT [id number] [facility] [address] [facility], [address] Name: Carol Juarez Birthdate: 1985 SSN: [id number] [facility] Allergy: No known allergies [...] as above Diet: regular Appointment(s): To call [phone] by 5 pm to verify that you [...] documentation info: (time, how & by). Source: [facility] RWHXTRANSXRTFSYS Document Id: [id number] Miscellaneous - Conversion, Historical Provider Ser - 2007 10:20 AM CDT [id number] [address] [facility] [address] [place] [address] Name: Carol Juarez Birthdate: 1985 SSN: [id number] [facility] Allergy: No known allergies Discharge Date: 2007 Obstetrical Discharge Instructions Information given to patient: [facility] Immunization - {YES-NO Default Yes:4444::Yes} Notice of Phone Call / Classes - {YES-NO Default Yes:4444::Yes} Parenting Newsletter - {YES-NO Default Yes:4444::Yes} Public Health Referral - {YES-NO Default Yes:4444::Yes} Social Work Services Referral - {YES-NO Default Yes:4444::Yes} -Information for Medical Records - {YES-NO Default Yes:4444::Yes} Discharged to: Home. Activities: {[facility]IV[facility]:781359::-Up as tolerated} Medications: {:PLEASE INCLUDE THE TIME [...] Nursing Instructions: { OB HOSP [place] NURSE INSTRUCT:121963::Nothing per Vagina for 6 weeks, As instructed by your provider.} Diet: { OB [facility] DIET:334350} Appointment(s): Mother's Appointment: To see . Baby's [...] documentation info: (time, how & by). Source: [facility] RWMCHXTRANSXRTFSYS Document Id: [id number] documented in this encounter Plan of Treatment Not on filedocumented as of this encounter Visit Diagnoses Not on filedocumented in this encounter
--- OUTSIDE RECORDS SUMMARY | 2022-08-03 09:48 | XMS_ITS | Encounter Summary ---
:1985 Author Organization [facility] Address [address] [place] [address] Care Team Providers Name Role Phone Unavailable Primary Care Provider Unavailable Encounter Details Date Type Department Care Team Description 10/30/2008 Hospital Encounter [facility] Casi Vo M.D. [address] [place], [place] [address] (Wo rk) Social [...] How often do you attend confucianist or rastafari More than 4 time s [...] Grove M.D. - 10/30/2008 2:30 PM CDT [id number] Carol is a 22 year old here for her annual exam. 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 Declines Chl screen (monogamous) Health maintenance includes: pap smear done today and smoking cessation. Source: [facility] Document Id: [id number] documented in this encounter Miscellaneous Notes Miscellaneous - Conversion, Historical Provider Ser - 10/30/2008 2:30 PM CDT [id number] Carol Juarez [address] [place] [phone] November 01, 2008 Dear Carol Juarez, I am happy to inform you that your recent cervical cancer screening test (PAP smear) was normal. Preventative screening such as this helps insure your health for years to come. Congratulations for taking care of yourself! Please contact my office if you have any further questions. [phone]. Sincerely, Ann Grove M.D. OBSTETRICS/GYNECOLOGY [facility] Source: [facility] Document Id: [id number] documented in this encounter Plan of Treatment Not on filedocumented as of this encounter Visit Diagnoses Not on filedocumented in this encounter
--- OUTSIDE RECORDS SUMMARY | 2022-08-03 09:48 | XMS_ITS | Encounter Summary ---
:1985 Author Organization [facility] Address [address] [place] [address] Care Team Providers Name Role Phone Unavailable Primary Care Provider Unavailable Encounter Details Date Type Department Care Team Description 05/19/2009 Hospital Encounter [facility]X [facility] INPT/OBSRV Chon Babin M.D. [address] [place], [place] [id number] (Wo rk) Social History Tobacco Use Types [...] How often do you attend mu-ism or buddhist More than 4 time s [...]
--- OUTSIDE RECORDS SUMMARY | 2022-08-03 09:48 | XMS_ITS | Encounter Summary ---
:1985 Author Organization [facility] Address [address] [place] [address] Care Team Providers Name Role Phone Unavailable Primary Care Provider Unavailable Encounter Details Date Type Department Care Team Description 02/22/2009 Hospital Encounter HX NO MAPPING Rizwan Dean M.D. [address] [place], [place] [phone] (Wo rk) Social History [...]
--- OUTSIDE RECORDS SUMMARY | 2022-08-03 09:48 | XMS_ITS | Encounter Summary ---
:1985 Author Organization [facility] Address [address] [place] [address] Care Team Providers Name Role Phone Unavailable Primary Care Provider Unavailable Encounter Details Date Type Department Care Team Description 09/28/2007 Hospital Encounter [facility] FAMILYPRA Dave Dela Cruz, R.N. [...] often do you attend jehovah's witness or rastafarian More than 4 time s [...] Cruz R.N. - 09/28/2007 12:00 AM CST [id number] Patient called reports that she was into [...] Patient agrees to plan or care. Source: [facility] RWHXTRANSXRTFSYS Document Id: [id number] documented in this encounter Plan of Treatment Not on filedocumented as of this encounter Visit Diagnoses Not on filedocumented in this encounter
--- OUTSIDE RECORDS SUMMARY | 2022-08-03 09:48 | XMS_ITS | Encounter Summary ---
:1985 Author Organization [facility] Address [address] [place] [address] Care Team Providers Name Role Phone Unavailable Primary Care Provider Unavailable Encounter Details Date Type Department Care Team Description 11/21/2007 Hospital Encounter [facility] Yamel Koch M.D. [address] [place] [address] (Wo rk) Social History Tobacco [...] How often do you attend confucianist or uatsdin More than 4 time s [...] Yousif M.D. - 11/21/2007 3:30 PM CDT [id number] Comment: verification clerk Chief Complaint: Chief Complaint Patient presents with [...] has been doing well. She is from [place]. She has not tried any medications for [...] delivers. PCN/analia/mp Source: [facility] RWMCHXTRANSXRTFSYS Document Id: [id number] documented in this encounter Plan of Treatment Not on filedocumented as of this encounter Visit Diagnoses Not on filedocumented in this encounter
--- OUTSIDE RECORDS SUMMARY | 2022-08-03 09:48 | XMS_ITS | Encounter Summary ---
:1985 Author Organization [facility] Address [address] [place] [address] Care Team Providers Name Role Phone Unavailable Primary Care Provider Unavailable Encounter Details Date Type Department Care Team Description 09/28/2007 Hospital Encounter [facility] Manuel Paula P.A.-C., P.A. [address] [place] [address] (Wo rk) Social History Tobacco [...] How often do you attend sabianist or roman catholic More than 4 time [...] Karey Lanza - 09/28/2007 8:30 AM CST [id number] SUBJECTIVE: Carol is a 21 year old [...] week or sooner if symptoms wrosen Source: [facility] Document Id: [id number] Electronically signed by Conversion, [facility] Carpenter Repair [id number] at 01/25/2017 12:10 AM CDT documented in this encounter Miscellaneous Notes Miscellaneous - Karey Paula - 09/28/2007 8:30 AM CST [id number] Carol Juarez [address] [place] [phone] September 28, 2007 To whom it may concern Please excuse Carol Juarez from work for illness on 09/28/2007. She may return to work on 09/29/2007 without limitation. If you have any other questions or concerns please feel free to contact me at anytime. Sincerely, Karey Paula PA-C Department of Family Practice [facility] Source: [facility] RWHXTRANSXRTFSYS Document Id: [id number] Electronically signed by Roland, [facility] Carpenter Repair [id number] at 01/25/2017 12:10 AM CDT documented in this encounter Plan of Treatment Not on filedocumented as of this encounter Visit Diagnoses Not on filedocumented in this encounter
--- OUTSIDE RECORDS SUMMARY | 2022-08-03 09:48 | XMS_ITS | Encounter Summary ---
:1985 Author Organization [facility] Address [address] [place] [address] Care Team Providers Name Role Phone Unavailable Primary Care Provider Unavailable Encounter Details Date Type Department Care Team Description 12/02/2007 Hospital Encounter [facility] Casi Vo M.D. [address] [place], [place] [phone] (Wo rk) Social History [...] How often do you attend buddhism or bahai More than 4 time s [...] Grove M.D. - 12/02/2007 9:30 AM CDT [id number] Having some cramping. She's 36 weeks now so given 36 week instructions GBS/Hg done. KARY reviewed. BP good today. KG Source[facility] Document Id: [id number] Electronically signed by [facility], [facility] Carpenter Supervisor [id number] at 01/25/2017 2:07 AM CDT documented in this encounter Miscellaneous Notes Ann Barfield M.D. - 12/02/2007 9:30 AM CDT [id number] Carol Magalys [address] [address] December 05, 2007 Dear Carol: I am [...] or problems, please contact our office at [phone]. Sincerely, Ann Grove MD, ENVIRONMENTAL AUDITOR Department [facility] Source: [facility] Document Id: [id number] Electronically signed by Conversion, [facility] Carpenter Supervisor [id number] at 01/25/2017 2:07 AM CDT Ann Barfield M.D. - 12/02/2007 9:30 AM CDT [id number] Carol Dowell [address] [address] December 05, 2007 Dear Carol: I am [...] or problems, please contact our office at [phone]. Sincerely, Ann Grove MD, ENVIRONMENTAL AUDITOR Department [facility] Source: [facility] RWHXTRANSXRTFSYS Document Id: [id number] Electronically signed by Roland, [facility] Carpenter Supervisor [id number] at 01/25/2017 2:07 AM CDT documented in this encounter Plan of Treatment Not on filedocumented as of this encounter Visit Diagnoses Not on filedocumented in this encounter
--- OUTSIDE RECORDS SUMMARY | 2022-08-03 09:48 | XMS_ITS | Encounter Summary ---
:1985 Author Organization [facility] Address [address] [place] [address] Care Team Providers Name Role Phone Unavailable Primary Care Provider Unavailable Encounter Details Date Type Department Care Team Description 12/29/[address] [facility] Casi Vo M.D. [address] [place], [place] [phone] (Wo rk) Social [...] How often do you attend jew or sikh More than 4 time s [...] Grove M.D. - 12/29/2007 12:00 AM CDT [id number] [facility] [address] [facility], [address] Name: Carol Juarez Birthdate: 1985 [facility] [...] minutes. Dr. Ann Grove MD 12/29/2007 Source: [facility] RWHXTRANSXRTFSYS Document Id: [id number] Electronically signed by Conversion, [facility] Agriculture Technician [id number] at 01/25/2017 4:45 AM CDT Miscellaneous - Conversion, Historical Provider Ser - 12/29/2007 12:00 AM CDT [id number] [address], [address] Name: Carol Juarez Birthdate: 1985 SSN: [id number] [facility] Allergy: No known allergies Discharge [...] documentation info: (time, how & by). Source: [facility] RWMCHXTRANSXRTFSYS Document Id: [id number] documented in this encounter Plan of Treatment Not on filedocumented as of this encounter Visit Diagnoses Not on filedocumented in this encounter
--- OUTSIDE RECORDS SUMMARY | 2022-08-03 09:48 | XMS_ITS | Encounter Summary ---
:1985 Author Organization [facility] Address [address] [place] [address] Care Team Providers Name Role Phone Unavailable Primary Care Provider Unavailable Encounter Details Date Type Department Care Team Description 11/25/2007 Hospital Encounter HX [facility] OBGYN Provider, Histor ical Social History [...] How often do you attend tenriism or baptism More than 4 time s [...] Provider Ser - 11/25/2007 2:00 PM CDT [id number] Gestational Age: 35w 2d, recheck b/p, has a lot of pelvic pressure, has some leakage after she voids,JZ No sx pree. Repeat bp 122/80. Nitrazine negative. No ctx/vb. Decreased movement. BPP performed in clinic ANA LUISA 16cm. +2 breathing, +2 flexion/extension, +2 gross movement, +2 fluid = [address] Source: [facility] RWHXTRANSXRTFSYS Document Id: [id number] documented in this encounter Plan of Treatment Not on filedocumented as of this encounter Visit Diagnoses Not on filedocumented in this encounter
--- OUTSIDE RECORDS SUMMARY | 2022-08-03 09:48 | XMS_ITS | Encounter Summary ---
:1985 Author Organization [facility] Address [address] [place] [address] Care Team Providers Name Role Phone Unavailable [...] Historical Provider Ser - 08/23/2008 12:00 AM PROFESSIONAL SKATER [id number] 07/02/2009 - Date of R/C request: 06-12-09 Records sent to: Care Delivery Management [facility] Bambi Oh RN - [address] [address] [place] [address] -[facility] Description of Disclosure: 12-27-07 to 12-29-07. 12-30-07 to 12-30-07, 01-02-08 to 01-06-08 Purpose of Disclosure: insurance for payment audit Authorization: NO Source: [facility] Document Id: [id number] documented in this encounter Plan of Treatment Not on filedocumented as of this encounter Visit Diagnoses Not on filedocumented in this encounter
--- OUTSIDE RECORDS SUMMARY | 2022-08-03 09:48 | XMS_ITS | Encounter Summary ---
:1985 Author Organization [facility] Address [address] [place] [address] Care Team Providers Name Role Phone Unavailable Primary Care Provider Unavailable Encounter Details Date Type Department Care Team Description 11/21/2007 Hospital Encounter [facility]X [facility] Casi Vo M.D. [address] [place], [place] [phone] (Wo rk) Social History [...] How often do you attend restoration or caodaism More than 4 time s [...] Grove M.D. - 11/21/2007 2:00 PM CDT [id number] Gestational Age: 34w 5d C/O increased edema in feet and hands. BR Repeat BP 130/78 sitting. Reviewed S/S of PIH, will limit work to 8 hrs a day (now working 10hr) follow up in 4-5 days. KG Source: [facility] Document Id: [id number] Electronically signed by Conversion, [facility] Haul Truck Driver [id number] at 01/25/2017 1:26 AM CDT documented in this encounter Miscellaneous Notes Miscellaneous - Ann Grove M.D. - 11/21/2007 2:00 PM CDT [id number] Return to Work Release Date: 11/21/2007 Name: Carol Juarez Birthdate: 1985 The patient was seen at: [facility] today Restrictions if any: May work no more than 8 hrs due to complications. Ann Grove M.D. OBSTETRICS/GYNECOLOGY [facility] Source: [facility] Document Id: [id number] Electronically signed by Conversion, [facility] Haul Truck Driver [id number] at 01/25/2017 1:26 AM CDT documented in this encounter Plan of Treatment Not on filedocumented as of this encounter Visit Diagnoses Not on filedocumented in this encounter
--- OUTSIDE RECORDS SUMMARY | 2022-08-03 09:48 | XMS_ITS | Encounter Summary ---
:1985 Author Organization [facility] Address [address] [place] [address] Care Team Providers Name Role Phone Unavailable Primary Care Provider Unavailable Encounter Details Date Type Department Care Team Description 03/27/2009 Hospital Encounter [facility] Provider, [facility] Social History Tobacco Use Types Packs/Day Years [...]
--- OUTSIDE RECORDS SUMMARY | 2022-08-03 09:48 | XMS_ITS | Encounter Summary ---
:1985 Author Organization [facility] Address [address] [place] [address] Care Team Providers Name Role Phone Unavailable Primary Care Provider Unavailable Encounter Details Date Type Department Care Team Description 12/21/2007 Hospital En[facility] Casi Vo M.D. [address] [place], [place] [phone] (Wo rk) Social History [...] How often do you attend catholic or mormonism More than 4 time s [...] Grove M.D. - 12/21/2007 10:15 AM CDT [id number] Repeat BP 132/80. Has 2+ edema. No headache, visual changes Signs and symptoms of PIH discussed. Will follow up Mon with 24 hr urine and labs and appt. KG Source: [facility] RWMCHXTRANSXRTFSYS Document Id: [id number] documented in this encounter Plan of Treatment Not on filedocumented as of this encounter Visit Diagnoses Not on filedocumented in this encounter
--- OUTSIDE RECORDS SUMMARY | 2022-08-03 09:48 | XMS_ITS | Encounter Summary ---
:1985 Author Organization [facility] Address [address] [place] [address] Care Team Providers Name Role Phone Unavailable Primary Care Provider Unavailable Encounter Details Date Type Department Care Team Description 02/22/2009 Hospital Encounter HX NO MAPPING Rizwan Dean M.D. [address] [place], [place] [phone] (Wo rk) Social History [...] How often do you attend scientology or mormonism More than 4 time s [...]
--- OUTSIDE RECORDS SUMMARY | 2022-08-03 09:48 | XMS_ITS | Encounter Summary ---
:1985 Author Organization [facility] Address [address] [place] [address] Care Team Providers Name Role Phone Unavailable Primary Care Provider Unavailable Encounter Details Date Type Department Care Team Description 09/26/2007 Hospital Encounter HX [facility] Provider, Historic al Social History Tobacco [...] How often do you attend adventist or episcopal More than 4 time s [...]
--- OUTSIDE RECORDS SUMMARY | 2022-08-03 09:48 | XMS_ITS | Encounter Summary ---
:1985 Author Organization [facility] Address [address] [place] [address] Care Team Providers Name Role Phone Unavailable Primary Care Provider Unavailable Encounter Details Date Type Department Care Team Description 02/06/2008 Hospital Encounter HX [facility] Marisol Galaviz, APR N, C.N.P. [address] [place], [place] [phone] (Wo rk) Social History [...] How often do you attend mandaeism or evangelical More than 4 time s [...] C.NLebron., R.N. - 02/06/2008 1:00 PM CDT [id number] Carol is here for a 6-week checkup. [...] and symptoms of infection were discussed. Source: [facility] RWHXTRANSXRTFSYS Document Id: [id number] Electronically signed by Conversion, [facility] Sba Business Development Officer [id number] at 01/25/2017 2:51 AM CDT documented in this encounter Miscellaneous Notes Miscellaneous - Marisol Irving C.N.P., R.N. - 02/06/2008 1:00 PM CDT [id number] Date: 02/06/2008 Name: Carol Juarez Birthdate: 1985 The patient was seen at: [facility] today Restrictions if any: Able to work unrestricted as of today. Marisol Irving RN, [facility] [place] MACHINE TENDER OBSTETRICS/GYNECOLOGY [facility] Source: [facility] RWHXTRANSXRTFSYS Document Id: [id number] Electronically signed by Roland, [facility] Sba Business Development Officer [id number] at 01/25/2017 2:51 AM CDT documented in this encounter Plan of Treatment Not on filedocumented as of this encounter Visit Diagnoses Not on filedocumented in this encounter
--- OUTSIDE RECORDS SUMMARY | 2022-08-03 09:48 | XMS_ITS | Encounter Summary ---
:1985 Author Organization [facility] Address [address] [place] [address] Care Team Providers Name Role Phone Unavailable Primary Care Provider Unavailable Encounter Details Date Type Department Care Team Description 06/04/2008 Hospital Encounter [facility]X [facility] INPT/OBSRV Neema Nieves M.D. Social [...] How often do you attend sikhism or restorationist More than 4 time s [...]
--- OUTSIDE RECORDS SUMMARY | 2022-08-03 09:48 | XMS_ITS | Encounter Summary ---
:1985 Author Organization [facility] Address [address] [place] [address] Care Team Providers Name Role Phone Unavailable [...] How often do you attend muslim or temple More than 4 time s [...] Provider Ser - 12/27/2007 7:10 PM CDT [id number] [facility] Document Id: [id number] documented in this encounter Plan of Treatment Not on filedocumented as of this encounter Visit Diagnoses Not on filedocumented in this encounter
--- OUTSIDE RECORDS SUMMARY | 2022-08-03 09:48 | XMS_ITS | Encounter Summary ---
:1985 Author Organization [facility] Address [address] [place] [address] Care Team Providers Name Role Phone Unavailable Primary Care Provider Unavailable Encounter Details Date Type Department Care Team Description 12/07/2007 Hospital Encounter [facility]X [facility] Marisol Galaviz, APR N, C.N.P. [address] [place], [place] [phone] (Wo rk) Social History [...] How often do you attend restorationist or judaism More than 4 time s [...] C.NBrittaneyP., R.N. - 12/07/2007 10:30 AM CDT [id number] Carol is here at Gestational Age: 37w. [...] Source: [facility] Document Id: [id number] Electronically signed by Conversion, [facility] Extension Forester [id number] at 01/25/2017 2:07 AM CDT Marisol Irving C.N.P., R.N. - 12/07/2007 10:30 AM CDT [id number] Gestational Age: 37w GBS and HGB done today. plan and hospital arrival information given. C/O low back, leg and pelvic pain all the time. Hurts to stand more than 5 min at a time. BR Will limit work to 4 hours per day d/t increased edema. Warning signs discussed. FKC also discussed.ZENON Source: [facility] Document Id: [id number] Electronically signed by Conversion, [facility] Extension Forester [id number] at 01/25/2017 2:07 AM CDT documented in this encounter Miscellaneous Notes Miscellaneous - Marisol Irving C.N.P., R.N. - 12/07/2007 10:30 AM CDT [id number] Date: 12/07/2007 Name: Carol Juarez Birthdate: 1985 The patient was seen at: [facility] today Restrictions if any: Please limit work to 4 hours per day. Marisol Irving RN, CLINICAL PROVIDER TRAINER OBSTETRICS/GYNECOLOGY [facility] Source: [facility] RWMCHXTRANSXRTFSYS Document Id: [id number] Electronically signed by Conversion, [facility] Extension Forester [id number] at 01/25/2017 2:07 AM CDT documented in this encounter Plan of Treatment Not on filedocumented as of this encounter Visit Diagnoses Not on filedocumented in this encounter
--- OUTSIDE RECORDS SUMMARY | 2022-08-03 09:48 | XMS_ITS | Encounter Summary ---
:1985 Author Organization [facility] Address [address] [place] [address] Care Team Providers Name Role Phone Unavailable Primary Care Provider Unavailable Encounter Details Date Type Department Care Team Description 12/14/2007 Hospital Encounter HX [facility] OBGYN Provider, Histor ical Social [...] How often do you attend hoahaoism or jew More than 4 time s [...] Provider Ser - 12/14/2007 9:45 AM CDT [id number] No complaints, exam normal KRN No regular contractions KRN Source[facility] Document Id: [id number] documented in this encounter Plan of Treatment Not on filedocumented as of this encounter Visit Diagnoses Not on filedocumented in this encounter
--- OUTSIDE RECORDS SUMMARY | 2022-08-03 09:48 | XMS_ITS | Encounter Summary ---
:1985 Author Organization [facility] Address [address] [place] [address] Care Team Providers Name Role Phone Unavailable Primary Care Provider Unavailable Encounter Details Date Type Department Care Team Description 01/09/2009 Hospital Encounter [facility] Yamel Koch M.D. [address] [place] [address] (Wo rk) Social History Tobacco [...] How often do you attend confucianist or taoist More than 4 time s [...] Yousif M.D. 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 PCN/BTM/dac Source: [facility] RWMCHXTRANSXRTFSYS Document Id: [id number] Electronically signed by Conversion, [facility] Coremaking Machine Operator [id number] at 01/24/2017 3:54 PM CDT documented in this encounter Plan of Treatment Not on filedocumented as of this encounter Visit Diagnoses Not on filedocumented in this encounter
--- OUTSIDE RECORDS SUMMARY | 2022-08-03 09:48 | XMS_ITS | Encounter Summary ---
:1985 Author Organization [facility] Address [address] [place] [address] Care Team Providers Name Role Phone Unavailable Primary Care Provider Unavailable Encounter Details Date Type Department Care Team Description 01/02/2008 Hospital Encounter [facility] Casi Vo M.D. [address] [place], [place] [phone] (Wo rk) Social History [...] How often do you attend christianity or christian More than 4 time s [...] Grove M.D. - 01/02/2008 9:30 AM CDT [id number] Here for NST/ANA LUISA. Failed IOL last week for PIH. Was on BR all weekend BP normal today. O: ANA LUISA=4.5 A/P Gestational Age: 40w 5d , oligohydramnios. history of evolving PIH but BPs have been normal on BR. Admit. KG Source: [facility] RWMCHXTRANSXRTFSYS Document Id: [id number] Electronically signed by Conversion, [facility] Electric Meter Repairer Apprentice [id number] at 01/25/2017 4:45 AM CDT documented in this encounter Plan of Treatment Not on filedocumented as of this encounter Visit Diagnoses Not on filedocumented in this encounter
--- OUTSIDE RECORDS SUMMARY | 2022-08-03 09:48 | XMS_ITS | Encounter Summary ---
:1985 Author Organization [facility] Address [address] [place] [address] Care Team Providers Name Role Phone Unavailable Primary Care Provider Unavailable Encounter Details Date Type Department Care Team Description 09/26/2007 Hospital Encounter [facility] Marisol Galaviz, APR N, C.N.P. [address] [place], [place] [phone] (Wo rk) Social [...] How often do you attend mandaeism or latter-day More than 4 time s [...] Provider Ser - 09/26/2007 9:45 AM CST [id number] Carol is here for her 26 week visit. She is Gestational Age: 26w 5d weeks today. 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 Carol understands the [...] discussed: none Next appointment: 2,4 weeks [facility]: [facility] Document Id: [id number] Marisol Irving C.N.P., R.N. - 09/26/2007 9:45 AM CST [id number] Gestational Age: 26w 5d 1 hr gtt, antibody screen and hgb done today. certificate form given. BR Doing well. Attending classes. ZENON Source: [facility] Document Id: [id number] Electronically signed by [facility], [facility] Employee Benefits Director [id number] at 01/25/2017 12:10 AM CDT documented in this encounter Miscellaneous Notes Miscellaneous - Marisol Irving C.N.P., R.N. - 09/26/2007 9:45 AM CST [id number] [facility] [address] [facility] [address] September 27, 2007 Carol Juarez [address] [place] [phone] Dear Ms. Juarez: I am writing to [...] or problems, please contact our office at [phone]. Sincerely, Marisol Irving RN, HAND GLASS CUTTER [facility] Source: [facility] Document Id: [id number] documented in this encounter Plan of Treatment Not on filedocumented as of this encounter Visit Diagnoses Not on filedocumented in this encounter
--- OUTSIDE RECORDS SUMMARY | 2022-08-03 09:48 | XMS_ITS | Encounter Summary ---
:1985 Author Organization [facility] Address [address] [place] [address] Care Team Providers Name Role Phone Unavailable Primary Care Provider Unavailable Encounter Details Date Type Department Care Team Description 11/07/2007 Hospital En[facility] How often do you attend synagogue or gnosticism More than 4 time s [...] Provider Ser - 11/07/2007 10:30 AM CDT [id number] C/o pressure.TM Patient reassured Would like to be seen by primary for rash. Has depigmented areas on foreqrms bilaterally. Not rpesent on remainder of body. Has had prior to , no other symptoms. KRN Source: [facility] Document Id: [id number] documented in this encounter Plan of Treatment Not on filedocumented as of this encounter Visit Diagnoses Not on filedocumented in this encounter
--- OUTSIDE RECORDS SUMMARY | 2022-08-03 09:48 | XMS_ITS | Encounter Summary ---
:1985 Author Organization [facility] Address [address] [place] [address] Care Team Providers Name Role Phone Unavailable Primary Care Provider Unavailable Encounter Details Date Type Department Care Team Description 10/24/2007 Hospital Encounter [facility] Mariaelena Mcintosh M.D. Social History Tobacco [...] Kinney M.D. - 10/24/2007 11:00 AM CST [id number] Has some mild CHOWDHURY, migranes Used tylenol and Caffeine. Good movement. Exam normal. Skin lesion onarms - will get derm consult. KD Source: [facility] Document Id: [id number] Electronically signed by Conversion, [facility] Statement Services Representative [id number] at 01/25/2017 1:26 AM CDT documented in this encounter Plan of Treatment Not on filedocumented as of this encounter Visit Diagnoses Not on filedocumented in this encounter
--- OUTSIDE RECORDS SUMMARY | 2022-08-03 09:48 | XMS_ITS | Encounter Summary ---
:1985 Author Organization [facility] Address [address] [place] [address] Care Team Providers Name Role Phone Unavailable [...] How often do you attend hoahaoism or jehovah's witness More than 4 time [...]
--- OUTSIDE RECORDS SUMMARY | 2022-08-03 09:48 | XMS_ITS | Encounter Summary ---
:[address] [facility] Address [address] [place] [address] Care Team Providers Name Role Phone Unavailable [...] How often do you attend holiness or latter day More than 4 time [...] Provider Ser - 12/30/2007 7:10 AM CDT [id number] [facility] Document Id: [id number] Miscellaneous - Conversion, Historical Provider Ser - 12/30/2007 7:10 AM CDT [id number] December 30, 2007 Carol Dowell [place] [id number] OB Admit History & Physical 2007 Carol [...] N/A Years of Education: 13 Occupational History [employer] Social History Main Topics Tobacco Use: [...] Negative GI: Negative BREAST: Negative : Negative FRONT DESK ADMINISTRATOR: As above CV: Negative PULMONARY: Negative MUSCULOSKELETAL: Negative PSYCH: Negative PE: BP 108/80 Gen: A&O, NAD CV: RRR Chest: CTA bilat Abd: Gravid, NT, vtx by Christiane, EFW 3900g by Christiane Ext: No CT, 1+ edema, DTR tr bilat, no clonus SVE: Deferred FHT: 140, ave LTV, +accels [place]: Irritability Amnisure: Negative Ltd ultrasound performed. Cephalic presentation confirmed. A/P: 21 y/o @ 40w2 (10) with: 1. IOL: Will proceed with 2nd attempt at induction with pitocin. 2. Gestational HTN: No e/o pree. Bp OK today. Will follow 3. GBS negative 4. status reassuring. Rylee Grijalva MD Dept of HOME SALES SERVICE PROFESSIONAL Source[facility] Document Id: [id number] Miscellaneous - Conversion, Historical Provider Ser - 12/30/2007 7:10 AM CDT [id number] [facility] [address], [address] Name: Carol Juarez Birthdate: 1985 [facility] Admission Date: 12/30/2007 Allergy: No [...] minutes. Dr. Rylee Grijalva MD 12/30/2007 Source: [facility] Document Id: [id number] Miscellaneous - Conversion, Historical Provider Ser - 12/30/2007 7:10 AM CDT [id number] [facility] [address] [facility], [address] Name: Carol Juarez Birthdate: 1985 SSN: [id number] [facility] Allergy: No known allergies Discharge Date: 12/30/2007 [...] water breaks Diet: regular Appointment(s): Please call [phone] on Wednesday for an appt. Make appt for Wednesday01/02/08 forOB check and NST. I have all of my belongings . I understand my discharge instructions. My medications were reviewed with me. Patient's Signature: Nurse Discharging this patient signature: RN Signature & Date: Spencer Schuster RN Date: 12/30/2007 Please see paper chart for additional discharge documentation info: (time, how & by). Source: [facility] Document Id: [id number] documented in this encounter Plan of Treatment Not on filedocumented as of this encounter Visit Diagnoses Not on filedocumented in this encounter
--- OUTSIDE RECORDS SUMMARY | 2022-08-03 09:49 | XMS_ITS | Encounter Summary ---
:1985 Author Organization [facility] Address [address] [place] [address] Care Team Providers Name Role Phone Unavailable Primary Care Provider Unavailable Encounter Details Date Type Department Care Team Description 06/01/2007 Hospital Encounter HX NO MAPPING Marisol Irving APRN, C.N.P. [address] [place], [place] [phone] (Wo rk) Social History [...] How often do you attend jew or jain More than 4 time s [...]
--- OUTSIDE RECORDS SUMMARY | 2022-08-03 09:49 | XMS_ITS | Encounter Summary ---
:1985 Author Organization [facility] Address [address] [place] [address] Care Team Providers Name Role Phone Unavailable Primary Care Provider Unavailable Encounter Details Date Type Department Care Team Description 08/18/2007 Hospital Encounter HX [facility] Casi Vo M.D. [address] [place], [place] [phone] (Wo rk) Social History [...] often do you attend latter day or tenriism More than 4 time s [...] Grove M.D. - 08/18/2007 9:15 AM CST [id number] Had presyncopal episode at work this am, better now GERD-can try zantac and maalox prn. KG Source: [facility] Document Id: [id number] documented in this encounter Plan of Treatment Not on filedocumented as of this encounter Visit Diagnoses Not on filedocumented in this encounter
--- OUTSIDE RECORDS SUMMARY | 2022-08-03 09:49 | XMS_ITS | Encounter Summary ---
:1985 Author Organization [facility] Address [address] [place] [address] Care Team Providers Name Role Phone Unavailable Primary Care Provider Unavailable Encounter Details Date Type Department Care Team Description 06/27/2007 Hospital Encounter [facility] Marisol Galaviz, APR N, C.N.P. [address] [place], [place] [phone] (Wo rk) Social History [...] How often do you attend baptist or synagogue More than 4 time s [...] C.NLebron., R.N. - 06/27/2007 11:00 AM CST [id number] Addended by: MARISOL IRVING on: 06/29/2007 12:10:37 PM Modules accepted: Orders [facility] Document Id: [id number] Electronically signed by Conversion, [facility] Mounting Machine Operator [id number] at 01/25/2017 10:01 AM CDT Conversion, Historical Provider Ser - 06/27/2007 11:00 AM CST [id number] Addended by: LORENZO ARIAS on: 06/29/2007 1:34:55 PM Modules accepted: Orders [facility] Document Id: [id number] Conversion, Historical Provider Ser - 06/27/2007 11:00 AM CST [id number] OK for message at home Genetic Screening: [...] to early sono done. She lives in [place] with mother. Carol has been feeling OK. She works at [employer]. Family is close and supportive. [facility]. Assessment: vitamins: Is taking them. Diet: Regular diet, no history of an eating disorder. Adequate calcium intake discussed. She has been referred to meet with the general lithographic worker. Transportation issues: none Safe relationship: She feels safe in current relationship. She has no history of abusive relationhips. Financial Concerns: doing OK Insurance: applying for [place] Social Service/Public Health: WIC She is a [...] call with any questions. Referrals: None Source[facility] Document Id: [id number] Marisol Irving C.NBrittaneyP., R.N. - 06/27/2007 11:00 AM CST [id number] Body mass index is 40.11 kg/(m`2). Obesity protocol. 1 GTT with next visit. Early sono done for dates. Applying for [place], WIC, GCPH consult ordered. Quitting smoking. ZENON Source: [facility] Document Id: [id number] Electronically signed by Conversion, 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 Preventative screening such as this helps insure your health for years to come. Congratulations for taking care of yourself! Please contact my office if you have any further questions. [phone]. Sincerely, Marisol Irving RN, COMPLAINT INVESTIGATOR OBSTETRICS/GYNECOLOGY [facility] Source: [facility] Document Id: [id number] Miscellaneous - Marisol Irving C.N.P., R.N. - 06/27/2007 11:00 AM CST [id number] Carol Juarez [address] [place] [phone] June 29, 2007 MR#: [id number] Dear Carol, I am happy to inform [...] free to give me a call at [phone]. Sincerely, Marisol Irving RN,COMPLAINT INVESTIGATOR machine rope maker [facility] Source: [facility] Document Id: [id number] Electronically signed by Conversion, [facility] Mounting Machine Operator [id number] at 01/25/2017 10:01 AM CDT documented in this encounter Plan of Treatment Not on filedocumented as of this encounter Visit Diagnoses Not on filedocumented in this encounter
--- OUTSIDE RECORDS SUMMARY | 2022-08-03 09:49 | XMS_ITS | Encounter Summary ---
:1985 Author Organization [facility] Address [address] [place] [address] Care Team Providers Name Role Phone Unavailable [...] often do you attend latter day or denominational More than 4 time s [...]
--- OUTSIDE RECORDS SUMMARY | 2022-08-03 09:49 | XMS_ITS | Encounter Summary ---
:1985 Author Organization [facility] Address [address] [place] [address] Care Team Providers Name Role Phone Unavailable Primary Care Provider Unavailable Encounter Details Date Type Department Care Team Description 07/27/2007 Hospital Encounter HX [facility] OBGYN Provider, Histor ical Social [...] How often do you attend restorationism or synagogue More than 4 time s [...] Monsivais L.PBrittaneyNBrittaney - 07/27/2007 8:45 AM CST [id number] Addended by: ALISON GONZALEZ on: 07/27/2007 9:07:44 AM Modules accepted: Orders [facility] Document Id: [id number] Electronically signed by Conversion, [facility] Loan Funder [id number] at 01/25/2017 5:21 AM CDT Conversion, Historical Provider Ser - 07/27/2007 8:45 AM CST [id number] Gestational Age: 18w, feels ok, 20 week waiver signed,declines to have quad test, JZ Doing well, no concerns. Early 1hr glu today. U/s ordered. [facility] Document Id: [id number] documented in this encounter Miscellaneous Notes Miscellaneous - Marisol Irving, C.N.P., R.N. - 07/27/2007 8:45 AM CST [id number] [facility] [address] [place] [address] July 27, 2007 Carol Juarez [address] [place] [phone] Dear Ms. Juarez: I am writing to [...] or problems, please contact our office at [phone]. Sincerely, Marisol Irving RN, TIPPLE OPERATOR [facility] Source: [facility] Document Id: [id number] Electronically signed by Conversion, [facility] Loan Funder [id number] at 01/25/2017 5:21 AM CDT documented in this encounter Plan of Treatment Not on filedocumented as of this encounter Visit Diagnoses Not on filedocumented in this encounter
--- OUTSIDE RECORDS SUMMARY | 2022-08-03 09:49 | XMS_ITS | Encounter Summary ---
:1985 Author Organization [facility] Address [address] [place] [address] Care Team Providers Name Role Phone Unavailable Primary Care Provider Unavailable Encounter Details Date Type Department Care Team Description 08/26/2007 Hospital Encounter HX [facility] Casi Vo M.D. [address] [place], [place] [phone] (Wo rk) Social History [...] How often do you attend anabaptist or yarsanism More than 4 time s [...] Grove M.D. - 08/26/2007 9:30 AM CST [id number] Less GERD, not taking it now. Had US today. KG Source[facility] Document Id: [id number] documented in this encounter Plan of Treatment Not on filedocumented as of this encounter Visit Diagnoses Not on filedocumented in this encounter
--- OUTSIDE RECORDS SUMMARY | 2022-08-03 09:49 | XMS_ITS | Encounter Summary ---
:1985 Author Organization [facility] Address [address] [place] [address] Care Team Providers Name Role Phone Unavailable Primary Care Provider Unavailable Encounter Details Date Type Department Care Team Description 06/01/2007 Hospital Encounter HX [facility] XRAY Provider, Histori huma Social History [...]
--- OUTSIDE RECORDS SUMMARY | 2022-08-03 09:49 | XMS_ITS | Encounter Summary ---
:1985 Author Organization [facility] Address [address] [place] [address] Care Team Providers Name Role Phone Unavailable Primary Care Provider Unavailable Encounter Details Date Type Department Care Team Description 08/26/2007 Hospital Encounter [facility] XRAY Provider, Histori huma Social History [...] How often do you attend scientologist or alevism More than 4 time s [...] Historical Provider Ser - 08/26/2007 8:45 AM WATER CHEMIST [id number] Carol Juarez [address] [place] [phone] September 01, 2007 Dear Ms. Juarez: I [...] or problems, please contact our office at [phone]. Sincerely, Rylee Grijalva MD Dept. APPLICATION DEVELOPMENT INTERN [facility] Source: [facility] Document Id: [id number] documented in this encounter Plan of Treatment Not on filedocumented as of this encounter Visit Diagnoses Not on filedocumented in this encounter
--- OUTSIDE RECORDS SUMMARY | 2022-08-03 09:49 | XMS_ITS | Encounter Summary ---
:1985 Author Organization [facility] Address [address] [place] [address] Care Team Providers Name Role Phone Unavailable Primary Care Provider Unavailable Encounter Details Date Type Department Care Team Description 05/24/2007 Hospital Encounter HX [facility] OBGYN Provider, Histor ical Social History [...] How often do you attend episcopal or congregational More than 4 time s [...] Provider Ser - 05/24/2007 12:00 AM CDT [id number] LMP: 03/12/07- Uncertain Dates NGA: 12/18/06 Triage/Phone [...] as soon as can be scheduled. Source: [facility] RWHXTRANSXRTFSYS Document Id: [id number] documented in this encounter Plan of Treatment Not on filedocumented as of this encounter Visit Diagnoses Not on filedocumented in this encounter
[2022-08-03 11:03] LABS: HCG Quantitative* < 2.39 mIU/mL
== END 2022-08-03 13:14 | disposition home or self-care (01) ==
PROVIDERS: Visit Provider Obstetrics & Gynecology
DX: O03.9 Complete or unspecified spontaneous abortion without complication (principal)
CPT/HCPCS: 84702

== ENCOUNTER 2022-09-12 09:23 | Emergency (ER) | payer OTHER, SELFPAY ==
[2022-09-12 09:32] VITALS: BP 168/85; PULSE 67; RESP 18; TEMP 36.3; O2SAT 97; BMI 62.2
--- NOTE | 2022-09-12 09:45 | ED.GENADULT ---
HPI - General Adult General Chief complaint: Dental/Oral/Mouth Injury/Pain Stated complaint: RT side facial swelling Time Seen by Provider: 09/12/22 09:41 Source: patient Mode of arrival: ambulatory Limitations: no limitations History of Present Illness HPI narrative: 36-year-old female coming in today complaining of facial pain and swelling that she noticed when she woke up this morning couple of hours ago. She denies any systemic symptoms like fevers or chills. She does feel more fatigued than usual. States that she has had dental problems in the past and it has been difficult for her to get to the dentist because of her work schedule. She has no difficulty breathing or swallowing. Related Data Previous Rx's Medication Instructions Recorded cefuroxime axetil 500 mg tablet 500 mg PO BID 7 days #14 tabs 09/12/22 ketorolac 10 mg tablet 10 mg PO TID 5 days #15 tabs 09/12/22 metronidazole 500 mg tablet 500 mg PO Q8H 7 days #21 tabs 09/12/22 Allergies Allergy/AdvReac Type Severity Reaction Status Date / Time venlafaxine [From Effexor] Allergy Mild Rash Verified 07/03/22 10:09 Penicillins Allergy Unknown Verified 07/03/22 10:09 Review of Systems Status of ROS: Reports: 10 or more systems reviewed and unremarkable except as noted in History and below [facility] Medical History History of GI bleed (11/13/17) History of vaginal delivery (06/24/17) History of vaginal delivery (01/03/08) Hypovolemic shock (11/11/17) Surgical History Hx laparoscopic cholecystectomy (03/03/18) Hx of appendectomy (09/08/17) S/P section (04/12/19) S/P dilation and curettage (06/18/22) Family History Mother Thyroid disease Social History Narrative: 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 Alert and oriented. Answers questions appropriately. Mood and affect are appropriate. Speaks in full sentences without needing to catch her breath. Voice sounds normal. And she can open and close her jaw without difficulty. HEENT: Normocephalic atraumatic. Pupils are equally round reactive to light. Extraocular muscles are intact. Conjunctivae are moist without any icterus noted. Moist mucous membranes. Posterior pharynx is normal. Neck is soft without any lymphadenopathy. Patient has very poor dentition with multiple teeth cracked, missing or turning black. She has swelling of the cheek on the right side without erythema or heat. The upper gums on the right are erythematous and tender across multiple teeth. However, I do not feel any pockets of fluctuance nor do I see any abscess formation that needs to be drained. Skin: Well perfused without any obvious rashes. Const: Vital Signs, click to edit/add: Vital Signs - 24 hr 09/12/22 09:32 Temperature 97.4 F L Pulse Rate [Right Pulse Oximeter] 67 Respiratory Rate 18 Blood Pressure [Ri ght Upper Arm] 168/85 H Pulse Oximetry 97 Oxygen Delivery Me thod Room Air Course Course Hospital Course: Toradol 60 mg IM given in the ED today. Vital Signs Vital signs: Initial Vital Signs Temperature 97.4 F L 09/12/22 09:32 Temperature Source Temporal Artery Scan 09/12/22 09:32 Pulse Rate 67 09/12/22 09:32 Respiratory Rate 18 09/12/22 09:32 Blood Pressure 168/85 H 09/12/22 09:32 Blood Pressure Mean 112 09/12/22 09:32 Blood Pressure Position Sitting 09/12/22 09:32 Pulse Oximetry 97 09/12/22 09:32 Oxygen Delivery Method 09/12/22 09:32 Vital Signs Temperature 97.4 F L 01/21/23 09:32 Pulse Rate 67 09/12/22 09:32 Respiratory Rate 18 09/12/22 09:32 Blood Pressure 168/85 H 09/12/22 09:32 Pulse Oximetry 97 09/12/22 09:32 Oxygen Delivery Method 09/12/22 09:32 Temperature 97.4 F L 09/12/22 09:32 Pulse Rate 67 09/12/22 09:32 Respiratory Rate 18 09/12/22 09:32 Blood Pressure 168/85 H 09/12/22 09:32 Pulse Oximetry 97 09/12/22 09:32 Oxygen Delivery Method 09/12/22 09:32 Medical Decision Making MDM Narrative Medical decision making narrative: 36-year-old female with poor dentition and gingival infection. Will go ahead and treat with cefuroxime and metronidazole, given the patient's allergies, and Toradol. Discussed reasons to return to the ER. We discussed the importance of get into the dentist as soon as she can. Patient was agreeable with everything we discussed had no other questions. Discharge Plan Discharge Clinical Impression: Infected tooth Patient Disposition: Home, Self-Care Condition: Stable Additional Instructions: Take all antibiotics as instructed. Take pain medications as needed. Okay to use a heating pad to the cheek for comfort, do not apply heat directly to skin. Follow-up with your dentist as soon as you can. Return to the ER if the swelling becomes worse in the next 48 hours instead of better or you develop any difficulty breathing or swallowing. Prescriptions: New ketorolac 10 mg tablet 10 mg PO TID 5 Days Qty: 15 0RF cefuroxime axetil 500 mg tablet 500 mg PO BID 7 Days Qty: 14 0RF metronidazole 500 mg tablet 500 mg PO Q8H 7 Days Qty: 21 0RF Follow Up/Referrals: Provider,Not a Local [Primary Care Provider] - Stand Alone Forms: [employer] Info Instructions
[2022-09-12] MEDS: KETOROLAC 60 MG/2 ML inj IM (09:55)
== END 2022-09-12 10:24 | disposition home or self-care (01) ==
LOC: ED 10:04
PROVIDERS: Emergency Provider Family Medicine
DX: K04.7 Periapical abscess without sinus (principal)
CPT/HCPCS: 96372; 99282; 99283; J1885

== ENCOUNTER 2023-07-13 15:50 | Emergency (ER) | payer OTHER, SELFPAY ==
[2023-07-13] VITALS (11 sets, daily range): BP systolic 139–169; BP diastolic 82–119; PULSE 83–101; RESP 18–20; TEMP 36.6; O2SAT 91–95; BMI 68.5
--- NOTE | 2023-07-13 16:26 | CRLHL7_ITS ---
For Patients: As a result of the Century Cures Act, medical imaging exams and procedure reports are released immediately into your electronic medical record. You may view this report before your referring provider. If you have questions, please contact your health care provider. INDICATION: Cough TECHNIQUE: Chest 2 views. COMPARISON: None. FINDINGS: Cardiovascular and mediastinum: Heart size and vasculature are normal in caliber and appearance. Lungs and pleural spaces: Lungs are clear. No sign of infiltrate or mass. No sign of pleural effusion. No pneumothorax. Bones and soft tissues: No significant findings. IMPRESSION: No acute cardiopulmonary process. Dictated by Mamadou Ray MD @ 07/13/2023 5:08:12 PM (Electronically Signed)
--- NOTE | 2023-07-13 16:28 | ED.GENADULT ---
HPI - General Adult General Chief complaint: Cough Stated complaint: Cough 4 weeks, short of breath Time Seen by Provider: 07/13/23 16:15 History of Present Illness HPI narrative: This 37-year-old female comes in reporting cough that began 4 weeks ago. She states that she got better but more recently in the last week or week and a half her cough has worsened. She states that she feels short of breath at times. She does not report any fevers or other symptoms. She arrives with normal vital signs. Are her blood pressure is a bit elevated but she is maintaining oximetry at 95% on room air. Related Data Previous Rx's Medication Instructions Recorded cefuroxime axetil 500 mg tablet 500 mg PO BID 7 days #14 tabs 09/12/22 ketorolac 10 mg tablet 10 mg PO TID 5 days #15 tabs 09/12/22 metronidazole 500 mg tablet 500 mg PO Q8H 7 days #21 tabs 09/12/22 acetaminophen 300 mg-codeine 30 mg 1 tab PO Q6H PRN pain #20 tabs 07/13/23 tablet methylprednisolone 4 mg tablets in See Rx Instructions PO .COMPLEX 07/13/23 a dose pack (Medrol (Kirit)) #21 ea Allergies Allergy/AdvReac Type Severity Reaction Status Date / Time venlafaxine [From Effexor] Allergy Mild Rash Verified 07/03/22 10:09 Penicillins Allergy Unknown Verified 07/03/22 10:09 Review of Systems Status of ROS: Reports: 10 or more systems reviewed and unremarkable except as noted in History and below Narrative: Constitutional: No fevers, no weight gain or loss. Eyes: No discharge. No vision changes. HENT: No congestion, no sore throat, no ear pain. Cardiovascular: No chest pain, no palpitations. Respiratory: Frequent cough with report of shortness of breath. Gastrointestinal: No abdominal pain, no vomiting, no diarrhea. Genitourinary: No dysuria, no hematuria. Musculoskeletal: Normal range of motion. Skin: No rashes, no pruritis. Neurological: No dizziness, weakness, sensory change, speech change. Endo/Heme/Allergies: No bruising or bleeding. No polydipsia. Pysch: no suicidality, no anxiety, no insomnia. All other systems reviewed and are negative. [facility] Medical History History of GI bleed (11/13/17) History of vaginal delivery (06/24/17) History of vaginal delivery (01/03/08) Hypovolemic shock (11/11/17) Surgical History Hx laparoscopic cholecystectomy (03/03/18) Hx of appendectomy (09/08/17) S/P section (04/12/19) S/P dilation and curettage (06/18/22) Family History Mother Thyroid disease Social History Narrative: Works at [email or web address] as an [employer] Highest level of school completed/degree received: high school graduate Smoking Status: Current some day smoker Do you use any of these nicotine containing products: None How often do you have a drink containing alcohol: monthly or less How many standard drinks containing alcohol do you have on a typical day: 1 or 2 AUDIT-C Alcohol total score: 1 Non-prescribed substance use: denies use Do you think of yourself as: straight/heterosexual Gender Identity: female Exam Narrative: Exam Narrative: Constitutional: Well-developed, well-nourished, no acute distress. HEENT: Normocephalic, atraumatic. Neck: Normal range of motion. Nontender. Supple. Heart: Regular. No murmurs. Normal rate. Intact distal pulses. Lungs: bilateral expiratory wheezes. No use of accessory muscles for breathing. Abdomen: Normal bowel sounds. Nontender. No rebound tenderness. Genitalia: Deferred. Back: No midline tenderness. Normal range of motion. Extremities: Normal range of motion. No injury. Skin: Intact. No rash. Warm. No erythema or pallor. Neurologic: No altered sensation. No weakness. Alert and oriented. Psychiatric: No suicidality. No anxiety or depression. No insomnia. Nursing notes and vitals signs are reviewed. Const: Vital Signs, click to edit/add: Vital Signs - 24 hr 07/13/23 16:05 Temperature 97.9 F Pulse Rate [Pulse Oximeter] 100 Respiratory Rate 20 Blood Pressure [Ri ght Upper Arm] 169/119 H Pulse Oximetry 95 Oxygen Delivery Me thod Room Air Course Vital Signs Vital signs: Initial Vital Signs Temperature 97.9 F 07/13/23 16:05 Temperature Source Temporal Artery Scan 07/13/23 16:05 Pulse Rate 100 07/13/23 16:05 Respiratory Rate 20 07/13/23 16:05 Blood Pressure 169/119 H 07/13/23 16:05 Blood Pressure Mean 135 H 07/13/23 16:05 Blood Pressure Position Sitting 07/13/23 16:05 Pulse Oximetry 95 07/13/23 16:05 Oxygen Delivery Method Room Air 07/13/23 16:05 Vital Signs Temperature 97.9 F 07/13/23 16:05 Pulse Rate 100 07/13/23 16:05 Respiratory Rate 20 07/13/23 16:05 Blood Pressure 169/119 H 07/13/23 16:05 Pulse Oximetry 95 07/13/23 16:05 Oxygen Delivery Method Room Air 07/13/23 16:05 Temperature 97.9 F 07/13/23 16:05 Pulse Rate 100 07/13/23 16:05 Respiratory Rate 20 07/13/23 16:05 Blood Pressure 169/119 H 07/13/23 16:05 Pulse Oximetry 95 07/13/23 16:05 Oxygen Delivery Method Room Air 07/13/23 16:05 Medications Administered Medications: Discontinued Medications Generic Name Dose Route Start Last Admin Trade Name Freq PRN Reason Stop Dose Admin Dexamethasone 10 mg 07/13/23 16:26 07/13/23 16:35 Dexamethasone 10 Mg/Ml Inj PO 07/13/23 16:27 10 mg ONCE ONE Administration Medical Decision Making [facility] Narrative Medical decision making narrative: this patient comes in with persistent cough and the feeling of shortness of breath. Chest x-ray returns with no acute pulmonary disease process. EKG is also reassuring. Nasopharyngeal swab is negative for COVID, influenza, and RSV. This patient likely has a viral upper respiratory infection. She did receive an oral dose of dexamethasone 10 mg. She also received prescriptions for Medrol Dosepak and Tylenol 3. She is okay to be Discharged home. Lab Data Labs: Lab Results 07/13/23 Range/Units 16:00 SARS-CoV-2 (PCR) Negative SARS-CoV-2 (Negative) Influenza Type A (PCR) Negative PCR FLU A (Negative) Influenza Type B (PCR) Negative PCR FLU B (Negative) RSV (PCR) Negative PCR RSV (Negative) ECG Data Attestation: I personally reviewed and interpreted this ECG as follows: Interpretation: Normal sinus rhythm. Rate is 99 beats per minute. There are no ST or T-wave abnormalities. occasional PVCs. Discharge Plan Discharge Clinical Impression: Acute upper respiratory infection Patient Disposition: Home, Self-Care Condition: Stable Additional Instructions: take medications as prescribed. Activity as tolerated. Follow up with MD or return if worsening symptoms happen. Prescriptions: New acetaminophen-codeine 300-30 mg tablet 1 tab PO Q6H PRN (Reason: pain) Qty: 20 0RF methylprednisolone [Medrol (Kirit)] 4 mg tablets,dose pack See Rx Instructions .ROUTE .COMPLEX Qty: 21 0RF Rx Instructions: orally per package directions No Action ketorolac 10 mg tablet 10 mg PO TID 5 Days Qty: 15 0RF cefuroxime axetil 500 mg tablet 500 mg PO BID 7 Days Qty: 14 0RF metronidazole 500 mg tablet 500 mg PO Q8H 7 Days Qty: 21 0RF Follow Up/Referrals: Provider,Not a Local [Primary Care Provider] - Stand Alone Forms: [employer] Info Instructions
[2023-07-13] MEDS: dexAMETHasone 10 MG/ML inj PO (16:35)
[2023-07-13 16:44] LABS: PCR FLU A Negative PCR FLU A (Negative); PCR FLU B Negative PCR FLU B (Negative); PCR RSV Negative PCR RSV (Negative)
[2023-07-13 16:50] LABS: SARS PCR* Negative SARS-CoV-2 (Negative)
== END 2023-07-13 17:50 | disposition home or self-care (01) ==
PROVIDERS: Emergency Provider Emergency Medicine Emergency Medical Services
DX: J06.9 Acute upper respiratory infection, unspecified (principal)
CPT/HCPCS: 71046; 87631; 93005; 99284; J1100

== ENCOUNTER 2024-10-08 13:06 | Emergency (ER) | payer OTHER, SELFPAY ==
--- OUTSIDE RECORDS SUMMARY | 2024-10-08 13:08 | XMS_ITS | Encounter Summary ---
Author Organization [facility] Address [address] [place] [address] Care Team Providers Care Round Cutter Operator Name Role Phone Ernesto Kent M.D. Primary Care Provider [phone] Encounter Details Date Type Department Care Team (Late st Contact Info) Description 08/29/2024 Orders Only [facility] Ernesto Kent M.D. [address] [place] [address] Screening Lipid Social History Tobacco Use Types Packs/Day Years Used Date Smoking Tobacco: Some Days Cigarettes Smokeless Tobacco: Never Comments:Smoking 1-2 cigaret av monthly Alcohol Use Standard Drinks/Week Comments Not Currently 0 (1 standard drink = 0.6 oz pur e alcohol) occasional 1-2 a year Humiliation, Afraid, Rape, and Kick questionnair e Answer Date Recorded Fear of Current or Ex-Partner No Emotionally Abused No 04/19/2019 Physically Abused No 04/19/2019 Sexually Abused Patient declined 04/19/2019 Social Connection and Isolat ion Panel [NHANES] Answer Date Recorded In a typical week, how many times do you talk on the phone with family, friends, or neighbors? Twice a week 07/09/2020 Frequency of Social Gatherin gs with Friends and Family Not on file 07/09/2020 How often do you attend chur ch or buddhism services? More than 4 times per year 07/09/2020 Active Member of Clubs or Organizations Not on f ile 07/09/2020 Attends Club or Organization Meetings Not on cj e 07/09/2020 Marital Status Not on file 07/09/2020 AUDIT-C Answer Date Recorded Q1: How often do you have a drink containing alc ohol? Monthly or less 07/09/2020 Q2: How many drinks containi ng alcohol do you have on a typical day when you are drinking? 1 or 2 07/09/2020 Frequency of Binge Drinking Not on file 06/23 Overall Financial Resource Strain (CARDIA) Answe r Date Recorded How hard is it for you to pa y for the very basics like food, housing, medical care, and heating? Somewhat hard 07/09/2020 PHQ-2 Answer Date Recorded PHQ-2 Score 4 07/08/2020 [facility] - Occupational Stress Questionnaire Answer Date Recorded Do you feel stress - tense, restless, nervous, or anxious, or unable to sleep at night because your mind is troubled all the time - these days? Rather much 07/09/2020 Exercise Vital Sign Answer Date Recorde d On average, how many days pe r week do you engage in moderate to strenuous exercise (like a brisk walk)? 1 day 07/09/2020 On average, how many minutes do you engage in exercise at this level? 20 min 07/09/2020 Hunger Vital Sign Answer Date Recorded Within the past 12 months, y ou worried that your food would run out before you got the money to buy more. Sometimes true Ran Out of Food in the Last Year Not on file 07/09/2020 PRAPARE - Transportation Answer Date Re corded Lack of Transportation (Medical) No 04/19/2019 Lack of Transportation (Non-Medical) No 04/19/2019 Depression Answer Date Recor ded PHQ-9 Total Score (max 27) 9 07/08 Nutrition Answer Date Recorded Nutrition: EVOO Fat Source No 07/09 On average, how many serving s of fruits and vegetables do you eat per day (serving size is equal to 1 cup or approximately the size of a tennis ball)? 2-3 07/09/2020 Dental Answer Date Recorded Dental: Regular Dentist Unknown 07/13/20 Education Answer Date Recorded What is the highest level of school you have completed or the highest degree you have received? 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 [address] [place] [address] PCP - General 10/05/22 documented as of this encounter
--- OUTSIDE RECORDS SUMMARY | 2024-10-08 13:08 | XMS_ITS | Encounter Summary ---
Author Organization [facility] Address [address] [place] [address] Care Team Providers Care Supply Assistant Name Role Phone Ernesto Kent M.D. Primary Care Provider [phone] Encounter Details Date Type Department Care Team (Late st Contact Info) Description 08/24/2024 Clinical Communication [facility] [address] [place] [phone] Carlie Reyes, ENGINEER/CONDUCTOR, C.N.P. [address], [place] [phone] Social History Tobacco Use Types Packs/Day Years [...] often do you attend chur ch or restoration services? More than 4 times per year [...] Answer Date Recorded PHQ-2 Score 4 07/08/2020 [facility] - Occupational Stress [...] Date Recorded Dental: Regular Dentist Unknown 07/13/20 23 Education Answer Date Recorded What is the highest level of school you have completed or the highest degree you have received? 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 [address] [place] [phone] PCP - General 10/05/22 documented as of this encounter
--- OUTSIDE RECORDS SUMMARY | 2024-10-08 13:08 | XMS_ITS | Clinical Summary ---
Author Organization [facility] Address [address] [place] [address] Care Team Providers Care Restaurant Worker Name Role Phone Ernesto Kent M.D. Primary Care Provider [phone] Source Comments Patient records contain information from all sites at [facility]. For routine questions regarding patient records, call [phone] during business hours, M-F 8:00 AM - 5:00 PM Central Time. Record requests for emergency care only can be directed to [phone] at any time.[facility] Allergies Active Allergy Reactions Criticality Noted Date Comments Venlafaxine Other (see comments) Medium 03/05/2020 Light headed and Dizziness Penicillins Other (see comments) Low 01/12/2012 Reaction during childhood Has previously tolerated cephalosporins and Penicillin V Medications acetaminophen (for_TYLENOL) 500 mg tablet Take 1-2 tablets by mouth every 6 (six) hours as needed. 7 Active levonorgestreL (MIRENA) 20 mcg/24 hours (6 yrs) 52 mg IUD 1 each by intrauterine route continuously. Active FLUoxetine (PROzac) 20 mg capsule 60 mg daily. 2 Active ondansetron (ZOFRAN) 4 mg tabletIndicatio ns:Nausea Take 1 tablet (4 mg total) by mouth every 8 (eight) hours as needed for nausea or vomiting. 20 tablet 2 Active polyethylene glycol (MIRALAX) 17 gram/dose oral powderIndicatio ns:Diarrhea Drink 1st portion of prep at 6 PM the evening before. 2nd portion must be started 4 hours before and finished 2 hours prior to report time 238 g 2 Active Additional Information Patient not taking.Reported on 05/13/2022 azithromycin (ZITHROMAX) 250 mg tablet Take 1 tablet (250 mg total) by mouth daily. Take 2 tablets (500 mg) on day 1, followed by 1 tablet (250 mg) daily for 4 days. 6 tablet 2 Active Additional Information Patient not taking.Reported on 05/13/2022 benzonatate (TESSALON PERLES) 100 mg capsule Take 1 capsule (100 mg total) by mouth 3 (three) times a day as needed for cough. 15 capsule 2 Active escitalopram (LEXAPRO) 10 mg tablet Take 10 mg by mouth daily. Has not started yet 2 Active albuterol 90 mcg/actuation inhaler Inhale 2 puffs every 4 (four) hours as needed for shortness of breath. 18 g 3 Active doxycycline hyclate (LymePak) 100 mg tabletIndicatio ns:Sinusitis Acute Take 1 tablet (100 mg total) by mouth 2 (two) times a day before morning and evening meals. 28 tablet 5 Active predniSONE (Deltasone) 20 mg tablet Take 1 tablet (20 mg total) by mouth daily. 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 10/28/2022 Diarrhea 02/17/2022 Overview (02/17/2022): Added automatically from request for surgery [id number] Body Mass Index 60.0 To 69.9 Adult 11/06/2016 Overview (01/12/2017): Body Mass Index (BMI) 50.0-59.9 Adult Apnea Sleep Obstructive 06/11/2015 Overview (11/04/2021): Sleep study 06/11/2015 - severe DANIEL Recommended nasal CPAP at 9 cm H2O Abuse Tobacco Smoking 12/12/2014 Migraine Headache 12/12/2014 Gastroesophageal Reflux Disease NOS 05/02/2014 Attention Deficit Hyperactive Disorder 4 Major Depressive Disorder, Recurrent, Unspecifie d 04/03/2014 Resolved Problems Problem Noted Date Diagnosed Date Resolved Date Anemia 05/31/2019 09/11/2019 Precipitate Labor 04/12/2019 04/20/2019 Care Insufficient 04/12/2019 0 04/20/2019 Overview (04/12/2019): Patient did not know she was until delivery Section Delivery 04/12/2019 Gallstone With Common Bile Duct Stone 02/09/2018 04/20/2019 Overview (02/09/2018): Added automatically from request for surgery [id number] Hemorrhage Gastrointestinal 11/13/2017 02/18/2018 Pain Right Upper Quadrant 11/11/2017 Melena 11/11/2017 02/18/2018 Overview (11/11/2017): Added automatically from request for surgery [id number] Hypovolemic Shock 11/11/2017 02/18/2018 Calculus Of Bile Duct Withou t Cholangitis Or Cholecystitis With Obstruction 11/08/2017 9 Overview (11/08/2017): Added automatically from request for surgery [id number] Appendicitis Acute 09/08/2017 8 Overview (09/08/2017): Added automatically from request for surgery [id number] Obesity Unspecified 05/01/2014 02/19/20 18 Encounters Date Type Department Care Team Description 08/29/2024 Orders Only [facility] Ernesto Joel M.D. Screening Lipid 08/24/2024 Clinical Communication [facility] [address] [place] [address] [place] [id number] Carlie Reyes, JOSEFA, C.N.P. from Last 3 Months Immunizations Immunization Administration Dates Next Due MMR 04/15/2019,06/25/2017 PPD Test 03/27/2009 Rho (D) Immune Globulin (IM only) 04/07/2017 SARS-COV-2 (COVID-19) - ANAMIKA PACE (J&J)(Discontinued) 11/29/2020 Tdap 04/15/2019,04/07/2017,02/06/2008 JJ 06/26/2017 influenza vaccine quad (FLUZONE/FLUARIX) (6 months and older)(PF) 06/09/2022,07/11/2021,05/30/2019,2017,06/25/2017 Family History Medical History Relation Name Comments Heart attack Father Cancer Grandfather maternal larynx Cancer Grandmother 1 maternal ear Lung cancer Grandmother 2 paternal brain cancer Other cancer Maternal Grandfather Nehemiah Throat cancer Melanoma Maternal Grandmother Prisca Hypothyroidism Mother Lung [...] Tobacco: Some Days Cigarettes Smokeless Tobacco: Never Tobacco Cessation:Ready to Q uit: Not Asked; Counseling Given: Not Answered Comments:Smoking 1-2 cigarettes monthly Alcohol Use Standard Drinks/Week [...] often do you attend chur ch or scientologist services? 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 Not on file Last Filed Vital Signs Vital Sign Reading Time Taken Comments Blood Pressure 133/76 04/08/2024 10:00 PM CDT Pulse 100 04/08/2024 10:00 PM CDT Temperature 36.3 C (97.3 F) 04/08/2024 8:01 PM CDT Respiratory Rate 20 04/08/2024 10:00 PM CDT Oxygen Saturation 95% 04/08/2024 10:00 PM CDT Inhaled Oxygen Concentration - - Weight 161 kg (354 lb 15.1 oz) 10/28/2022 7:24 A M CONTROL BOARD OPERATOR Height 160 cm (5' 3) 04/08/2024 8:59 PM CDT Body Mass Index 64.92 02/21/2022 12:21 AM CDT Plan of Treatment Health Maintenance Due Date Last Done Comments Depression Monitoring (PHQ-9) 1986 Hepatitis C Screening 1986 Hepatitis B Vaccines (1 of 3 - 19+ 3-dose series) 2005 Pneumococcal vaccine (0-49 years) (1 of 2 - PCV) 2005 Varicella Vaccines (2 of 2 - 13+ 2-dose series) 07/24/2017 06/26/2017 Lipid (Cholesterol) Screening 03/15/2019 03/15/2014 Tobacco Cessation counseling 02/17/2023 02/17/2022 COVID-19 Vaccine (2 - 2023- season) 2024 11/29/2020 Influenza Vaccine (#1) 2024 , 07/11/2021, 05/30/2019, Additional history exists Depression Monitoring (PHQ-9 for quality tracking) 08/23/2024 Cervical/Vaginal Cancer Screening 07/24/2025 07/24/2020, 07/24/2020, 12/09/2016, Additional history exists DTaP,Tdap,and Td Vaccines (4 - Td or Tdap) 04/15/2029 04/15/2019, 04/07/2017, 02/06/2008 HPV Vaccines Aged Out No longer eligi ble based on patient's age to complete this topic IPV Vaccines Aged Out No longer eligi ble based on patient's age to complete this topic Medical Devices Implanted Type Area Hydrotechnical Specialist Device Identifier Shelf Expiration Date Model / Serial / Lot Hardware E.G. Pins/Screws/R ods Hardware e.g. pins/screws/abby s Abdomen Description:Clamp for GI ble ed Nexplanon- Implanted: by Leonora Reaves APRN, C.NJud, SIM- (Quantity not on file) Other/Legacy - See Implant Description Arm 10/07/2020 / / [id number] Procedures Procedure Name Priority Date/Time Associated Diagnosis Comments THINPREP W/HPV CO-TEST SCREEN Routine 07/24/2020 1:43 PM CONTROL BOARD OPERATOR Pap Smear Examination LIPID PANEL, S Routine 03/15/2014 1:32 PM CDT from Last 3 Months or Most Recently Relevant to Health Maintenance Results * ThinPrep w/HPV Co-Test Screen (07/24/2020 1:43 PM CONTROL BOARD OPERATOR) 07/30/2020 2:28 PM CONTROL BOARD OPERATOR ECLR Disclaimer High risk HPV testing, Real-Time Polymerase Chain Reaction (PCR) was performed on the liquid-based cytology specimen at [facility], [place], [place]. 07/30/2020 2:28 PM CONTROL BOARD OPERATOR ECLR Report electronically signed by LISSETT Foley(ASCP) I verify that I have examined all relevant slides/materials for the specimen(s) and rendered or confirmed the diagnosis. 07/30/2020 2:28 PM CONTROL BOARD OPERATOR ECLR Gross Description Received specimen in a ThinPrep vial. 07/30/2020 2:28 PM CONTROL BOARD OPERATOR ECLR Pap Test Source Cervical/Endocervi huma 07/30/2020 2:28 PM CONTROL BOARD OPERATOR ECLR Interpretation Cervical/Endocervi huma (ThinPrep): Satisfactory for Evaluation Endocervical/trans formation zone components absent Negative for Intraepithelial Lesion or Malignancy High Risk HPV testing results are NEGATIVE. See specific genotype results below. HPV with Genotyping, PCR, ThinPrep: HPV High Risk Type 16, PCR: NEGATIVE HPV High Risk Type 18, PCR: NEGATIVE HPV other High Risk types, PCR: NEGATIVE Other High Risk HPV types include: 31, 33, 35, 39, 45, 51, 52, 56, 58, 59, 66, and 68. 07/30/2020 2:28 PM CONTROL BOARD OPERATOR ECLR Varies (Cervix/Endocerv ix) 07/24/2020 1:43 PM CONTROL BOARD OPERATOR 07/26/2020 10:27 AM CONTROL BOARD OPERATOR us Leonora Reaves APRN, C.N.PBrittaney, [facility]- LAB PAP PATHD X ORDERABLES Final Result [facility] [address] [place] [address], [facility] ECLR [facility] [place] [address] * Lipid Panel (03/15/2014 1:32 PM CDT) Cholesterol, Total 137 <=200 MGDL POWERCHART Comment: ADULTS: Desirable: < 200 mg/dL Increased Risk: 200-240 mg/dL High Risk: > 240 mg/dL PEDIATRIC: National Heart, Lung, and Blood [place] Cholesterol Guidelines for Pediatrics and Adolescents: Acceptable: < 170 mg/dL Borderline: 170-199 mg/dL High: > 199 mg/dL HX HDL 44 40 - 60 MGDL POWERCHART Triglycerides 78 <=150 MGDL POWERCHART Comment: The National Cholesterol Education Program (NCEP) has set the following guidelines for Triglycerides in adults ages 18 and up: Normal <150 mg/dL Borderline 150-199 mg/dL High 200-499 mg/dL Very High > or = 500 mg/dL The National Cholesterol Education Program (NCEP) has set the following guidelines for Triglycerides in children ages 2 to 17. Normal <90 mg/dL Borderline 90-129 mg/dL High > or = 130 mg/dL Calculated LDL 77 1 - 130 MGDL POWERCHART Comment: This is a calculated LDL. ADULT RANGES: Desirable: <100 mg/dL Low Risk: 100-129 mg/dL Borderline High Risk: 130-159 mg/dL High Risk: 160-189 mg/dL Very High Risk: >189 mg/dL PEDIATRIC: National Heart, Lung, and Blood [place] LDL Guidelines for Pediatrics and Adolescents: Acceptable: < 110 mg/dL Borderline: 110-129 mg/dL High: >129 mg/dL Total Cholesterol/HDL Ratio 3 POWERCHART HXLDL/HDL 2 POWERCHART Blood 03/15/2014 1:32 PM CDT Ingrid Bazan M.D. LAB BLOOD ADD-ON Final Result POWERCHART from Last 3 Months or Most Recently Relevant to Health Maintenance Insurance [employer] [employer] Advance Directives For more information, please contact: [phone] * Full Code (Latest Code Status on File) Date Activated Date Inactivated Comments 11/11/2017 1:43 PM 11/12/2017 11:40 AM Question Answer Comments Full Code: Discussed * Full Code Date Activated Date Inactivated Comments 11/08/2017 4:46 PM 11/08/2017 8:25 PM Question Answer Comments Full Code: Discussed * Full Code Date Activated Date Inactivated Comments 11/08/2017 2:56 PM 11/08/2017 4:46 PM Question Answer Comments Full Code: Discussed * Full Code Date Activated Date Inactivated Comments 09/08/2017 6:39 PM 09/09/2017 2:49 PM Question Answer Comments Full Code: Not Discussed Due to: Not medically appropriate Care Teams Restaurant Worker Relationship Specialty Start Date End Date Ernesto Kent M.D. [address] [place] [address] [place] [address] PCP - General 10/05/22
--- OUTSIDE RECORDS SUMMARY | 2024-10-08 13:08 | XMS_ITS | Clinical Summary ---
Author Organization [facility] [employer] [facility] [employer] [facility] Address [place], [place] [address] Care Team Providers Care Manager Six Sigma Name Role Phone Shannon Jang MD Primary Care Provider [phone] Pcp, No Unavailable Unavailable Venkata Olmstead MD Unavailable [phone] Suni Cummings RN Unavailable [phone] Unavailable [phone] Allergies Active Allergy Reactions Criticality Noted Date Comments Penicillins Other - Describe In Comment Field Low 01/12/2012 Does not recall reaction- reports reaction during childhood. Venlafaxine Dizziness Medium 03/05/2020 Light headed and Dizziness Medications levonorgestrel (MIRENA) 20 mcg/24 hours (8 yrs) 52 mg intrauterine device (IUD) Inject 1 Each intrauterine every 8 years. Placed 05/2022 Active Active Problems Patient Care Coordination No te Formatting of this note migh t be different from the original. SEE DOC FLOWSHEET-PIPELINE FOR NEW BARIATRIC COORDINATION NOTE. ZENON,RN Problem Noted Date Diagnosed Date Dysthymic disorder 08/09/2023 Obesity 06/11/2023 ADD 12/04/1999 Encounters Date Type Department Care Team Description 09/28/2024 Orders Only [facility] [address] [facility] [address] [place] [id number] Venkata Olmstead MD <No scans attached> 09/05/2024 12:30 PM BIKE DESIGNER Telemedicine [facility] [address] [place] [address] Medical Nutrition Therapy 09/05/2024 Travel from Last 3 Months Family History Medical History Relation Name Comments Genetic Other sister cystic f ibrosis Relation Name Status Comments Other Social History Tobacco Use Types Packs/Day Years Used Date Smoking Tobacco: Some Days Cigarettes 0.3 20.1 Started: 2004 Passive Smoke Exposure: Current Smokeless Tobacco: Never Tobacco Cessation:Ready to Q uit: Not Asked; Counseling Given: Not Answered Alcohol Use Standard Drinks/Week Comments Yes 0 (1 standard drink = 0.6 oz pur e alcohol) rarely PHQ-2 Answer Date Recorded PHQ-2 TOTAL SCORE 1 05/09/2024 Comments No Sex and Gender Information Value Date Recorded Sex Assigned at Not on file Legal Sex Female 5:27 AM BIKE DESIGNER Gender Identity Not on file Sexual Orientation Not on file Obstetrics History Last Filed Vital Signs Vital Sign Reading Time Taken Comments Blood Pressure 120/86 04/27/2024 10:38 AM CDT Pulse 80 04/27/2024 10:38 AM CDT Temperature 36.8 C (98.2 F) 05/12/2004 12:00 AM CDT Respiratory Rate 16 10/05/2002 12:00 AM BIKE DESIGNER Oxygen Saturation - - Inhaled Oxygen Concentration - - Weight 159.2 kg (351 lb) 09/05/2024 4:00 PM BIKE DESIGNER Height 158.5 cm (5' 2.4) 09/05/2024 4:00 PM BIKE DESIGNER Body Mass Index 63.37 09/05/2024 4:00 PM BIKE DESIGNER Plan of Treatment Upcoming Encounters Date Type Department Care Team (Late st Contact Info) Description 10/10/2024 8:30 AM BIKE DESIGNER Telemedicine [facility] [address] [place] [address] [place] [address] Health Maintenance Due Date Last Done Comments Tdap 1997 HIV for age 15-65 2001 Hepatitis C screening for ag e 18-79 2004 Pneumococcal series for age 6-49 (1 of 2 - PCV) 2005 Tetanus booster 2006 Pap test for age 21-65 12/27/2007 10/05/2002 COVID-19 vaccine series ( season) 2024 11/29/2020 Influenza for age 9-49 04/23/2024 Depression screening for age 12+ 05/09/2025 05/09/2024, 05/09/2024, 06/11/2023 BMI (ht and wt on same day) for age 18+ 09/05/2025 09/05/2024, 04/27/2024, 05/25/2023, Additional history exists Procedures Procedure Name Priority Date/Time Associated Diagnosis Comments HPV HIGH RISK Routine 10/05/2002 10:43 AM BIKE DESIGNER from Last 3 Months or Most Recently Relevant to Health Maintenance Results * HPV THIN PREP (10/05/2002 10:43 AM BIKE DESIGNER) HPV RESULTS Normal 10/05/2002 10:4 3 AM BIKE DESIGNER Narrative 02/02/2004 12:28 PM CDT Ordered by an unspecified provider. us Other Clinical Staff MICROBIOLOGY Final Resul t from Last 3 Months or Most Recently Relevant to Health Maintenance [place] [id number] Care Teams Manager Six Sigma Relationship Specialty Start Date End Date Shannon Jang MD [address] [place] [address] PCP - General Obstetrics and Gynecology 01/26/23 Pcp, No . 01/26/23 Venkata Olmstead MD [address] [phone] Consulting Physician Surgery - General 02/16/23 Suni Cummings RN [address] [phone] Obstetrics Gyn Physician Registered Nurse 02/16/[address] [place] [id number] Talking Books Library Clerk 04/27/24
[2024-10-08 13:14] VITALS: BP 178/109; PULSE 105; RESP 18; TEMP 36.1; O2SAT 97; BMI 66.8
--- OUTSIDE RECORDS SUMMARY | 2024-10-08 13:45 | XMS_ITS | Encounter Summary ---
Author Organization [facility] Address [address] [place] [address] Care Team Providers Care Engineering Group Leader Name Role Phone Ernesto Kent M.D. Primary Care Provider [phone] Encounter Details Date Type Department Care Team (Late st Contact Info) Description 08/24/2024 Clinical Communication [facility] [address] [place] [phone] Carlie Reyes, DIRECTOR OF COMMUNITY SERVICES, C.N.P. [address], [place] [phone] Social History Tobacco Use Types Packs/Day Years [...] often do you attend chur ch or mandaeism services? More than 4 times per year [...] Answer Date Recorded PHQ-2 Score 4 07/08/2020 [facility] - Occupational Stress [...] AM CDT Legal Sex Female 10:45 PM BIOMEDICAL EQUIPMENT TECHNICIAN Gender Identity Female 11/19/2017 10:29 AM CDT [...] Total Score: 9 07/08/20 20 3:59 PM BIOMEDICAL EQUIPMENT TECHNICIAN documented as of this encounter Care Teams Engineering Group Leader Relationship Specialty Start Date End Date Ernesto Kent M.D. [address] [place] [phone] PCP - General 10/05/22 documented as of this encounter
--- OUTSIDE RECORDS SUMMARY | 2024-10-08 13:45 | XMS_ITS | Encounter Summary ---
Author Organization [facility] Address [address] [place] [address] Care Team Providers Care Sr. Operations Manager Name Role Phone Ernesto Kent M.D. Primary Care Provider [phone] Encounter Details Date Type Department Care Team (Late st Contact Info) Description 08/29/2024 Orders Only [facility] Ernesto Kent M.D. [address] [place] [address] Screening Lipid Social History Tobacco [...] often do you attend chur ch or christianity services? More than 4 times per year [...] Answer Date Recorded PHQ-2 Score 4 07/08/2020 [facility] - [...] AM CDT Legal Sex Female 10:45 PM CLOTH EXAMINER HAND Gender Identity Female 11/19/2017 10:29 AM CDT [...] Total Score: 9 07/08/20 20 3:59 PM CLOTH EXAMINER HAND documented as of this encounter Care Teams Sr. Operations Manager Relationship Specialty Start Date End Date Ernesto Kent M.D. [address] [place] [address] PCP - General 10/05/22 documented as of this encounter
--- OUTSIDE RECORDS SUMMARY | 2024-10-08 13:45 | XMS_ITS | Clinical Summary ---
Author Organization [employer] [facility] Address [place], [place] [address] Care Team Providers Care Hospital Aide Name Role Phone Shannon Jang MD Primary Care Provider [phone]- [phone] Pcp, No Unavailable Unavailable Venkata Olmstead MD Unavailable [phone] Suni Cummings RN Unavailable [phone] Unavailable Allergies Active Allergy Reactions Criticality Noted Date [...] Department Care Team Description 09/28/2024 Orders Only [facility] [address] [facility] [address] [place] [id number] Venkata Olmstead MD <No scans attached> 09/05/2024 12:30 PM RN TRANSITIONAL CARE Telemedicine [facility] [address] [place] [address] Medical Nutrition Therapy 09/05/2024 [...] on file Legal Sex Female 5:27 AM RN TRANSITIONAL CARE Gender Identity Not on file Sexual Orientation Not on file Obstetrics History Last Filed Vital Signs Vital Sign Reading Time Taken Comments Blood Pressure 120/86 04/27/2024 10:38 AM CDT Pulse 80 04/27/2024 10:38 AM CDT Temperature 36.8 C (98.2 F) 05/12/2004 12:00 AM CDT Respiratory Rate 16 10/05/2002 12:00 AM RN TRANSITIONAL CARE Oxygen Saturation - - Inhaled Oxygen Concentration - - Weight 159.2 kg (351 lb) 09/05/2024 4:00 PM RN TRANSITIONAL CARE Height 158.5 cm (5' 2.4) 09/05/2024 4:00 PM RN TRANSITIONAL CARE Body Mass Index 63.37 09/05/2024 4:00 PM RN TRANSITIONAL CARE Plan of Treatment Upcoming Encounters Date Type Department Care Team (Late st Contact Info) Description 10/10/2024 8:30 AM RN TRANSITIONAL CARE Telemedicine [facility] [address] [place] [address] [place] [address] Health Maintenance Due Date Last Done Comments [...] HPV HIGH RISK Routine 10/05/2002 10:43 AM RN TRANSITIONAL CARE from Last 3 Months or Most Recently Relevant to Health Maintenance Results * HPV THIN PREP (10/05/2002 10:43 AM RN TRANSITIONAL CARE) HPV RESULTS Normal 10/05/2002 10:4 3 AM RN TRANSITIONAL CARE Narrative 02/02/2004 12:28 PM CDT Ordered by an unspecified provider. us Other Clinical Staff MICROBIOLOGY Final Resul t from Last 3 Months or Most Recently Relevant to Health Maintenance [place] [id number] Care Teams Hospital Aide Relationship Specialty Start Date End Date Shannon Jang MD [address] [place] [address] PCP - General Obstetrics and Gynecology 01/26/23 Pcp, No . 01/26/23 Venkata Olmstead MD [address] [phone] Consulting Physician Surgery - General 02/16/23 Suni Cummings RN [address] [phone] Concrete Tile Machine Operator Registered Nurse 02/16/[address] [place] [phone] Retort Press Operator 04/27/24
--- OUTSIDE RECORDS SUMMARY | 2024-10-08 13:45 | XMS_ITS | Clinical Summary ---
Author Organization [facility] Address [address] [place] [address] Care Team Providers Care Dock Loader Name Role Phone Ernesto Kent M.D. Primary Care Provider [phone] Source Comments Patient records contain information from all sites at [facility]. For routine questions regarding patient records, call [phone] during business hours, M-F 8:00 AM - 5:00 PM Central Time. Record requests for emergency care only can be directed to [phone] at any time.[facility] Allergies Active Allergy Reactions Criticality Noted Date [...] (02/17/2022): Added automatically from request for surgery [id number] Body Mass Index 60.0 To 69.9 Adult [...] (02/09/2018): Added automatically from request for surgery [id number] Hemorrhage Gastrointestinal 11/13/2017 02/18/2018 Pain Right Upper Quadrant 11/11/2017 Melena 11/11/2017 02/18/2018 Overview (11/11/2017): Added automatically from request for surgery [id number] Hypovolemic Shock 11/11/2017 02/18/2018 Calculus Of Bile Duct Withou t Cholangitis Or Cholecystitis With Obstruction 11/08/2017 9 Overview (11/08/2017): Added automatically from request for surgery [id number] Appendicitis Acute 09/08/2017 8 Overview (09/08/2017): Added automatically from request for surgery [id number] Obesity Unspecified 05/01/2014 02/19/20 18 Encounters Date Type Department Care Team Description 08/29/2024 Orders Only [facility] Ernesto Joel M.D. Screening Lipid 08/24/2024 Clinical Communication [facility] [address] [place] [address] [place] [address] Carlie Reyes, JOSEFA, C.N.P. from Last 3 [...] often do you attend chur ch or rastafarian services? More than 4 times per year [...] Answer Date Recorded PHQ-2 Score 4 07/08/2020 [facility] - Occupational Stress Questionnaire Answer Date Recorded [...] AM CDT Legal Sex Female 10:45 PM COPIER AND PRINTER FIELD TECHNICIAN Gender Identity Female 11/19/2017 10:29 AM [...] lb 15.1 oz) 10/28/2022 7:24 A M COPIER AND PRINTER FIELD TECHNICIAN Height 160 cm (5' 3) 04/08/2024 8:59 [...] this topic Medical Devices Implanted Type Area Meeting Coordinator Device Identifier Shelf Expiration Date Model / Serial / Lot Hardware E.G. Pins/Screws/R ods Hardware e.g. pins/screws/abby s Abdomen Description:Clamp for GI ble ed Nexplanon- Implanted: by Leonora Reaves APRN, C.NJud, SIM- (Quantity not on file) Other/Legacy - See Implant Description Arm 10/07/2020 / / [id number] Procedures Procedure Name Priority Date/Time Associated Diagnosis Comments THINPREP W/HPV CO-TEST SCREEN Routine 07/24/2020 1:43 PM COPIER AND PRINTER FIELD TECHNICIAN Pap Smear Examination LIPID PANEL, S Routine 03/15/2014 1:32 PM CDT from Last 3 Months or Most Recently Relevant to Health Maintenance Results * ThinPrep w/HPV Co-Test Screen (07/24/2020 1:43 PM COPIER AND PRINTER FIELD TECHNICIAN) 07/30/2020 2:28 PM COPIER AND PRINTER FIELD TECHNICIAN ECLR Disclaimer High risk HPV testing, Real-Time Polymerase Chain Reaction (PCR) was performed on the liquid-based cytology specimen at [facility], [place], [place]. 07/30/2020 2:28 PM COPIER AND PRINTER FIELD TECHNICIAN ECLR Report electronically signed by LISSETT Foley(ASCP) I verify that I have examined all relevant slides/materials for the specimen(s) and rendered or confirmed the diagnosis. 07/30/2020 2:28 PM COPIER AND PRINTER FIELD TECHNICIAN ECLR Gross Description Received specimen in a ThinPrep vial. 07/30/2020 2:28 PM COPIER AND PRINTER FIELD TECHNICIAN ECLR Pap Test Source Cervical/Endocervi huma 07/30/2020 2:28 PM COPIER AND PRINTER FIELD TECHNICIAN ECLR Interpretation Cervical/Endocervi huma (ThinPrep): Satisfactory for [...] 59, 66, and 68. 07/30/2020 2:28 PM COPIER AND PRINTER FIELD TECHNICIAN ECLR Varies (Cervix/Endocerv ix) 07/24/2020 1:43 PM COPIER AND PRINTER FIELD TECHNICIAN 07/26/2020 10:27 AM COPIER AND PRINTER FIELD TECHNICIAN us Leonora Reaves APRN, C.N.PBrittaney, [facility] PAP PATHD X ORDERABLES Final Result [facility] [address] [place] [address], [facility] ECLR [facility] [place] [address] * Lipid Panel (03/15/2014 1:32 PM CDT) Cholesterol, Total 137 <=200 MGDL POWERCHART Comment: ADULTS: Desirable: < 200 mg/dL Increased Risk: 200-240 mg/dL High Risk: > 240 mg/dL PEDIATRIC: National Heart, Lung, and [facility] [place] Cholesterol Guidelines for Pediatrics and Adolescents: Acceptable: [...] mg/dL PEDIATRIC: National Heart, Lung, and Blood [place] LDL Guidelines for Pediatrics and Adolescents: Acceptable: < 110 mg/dL Borderline: 110-129 mg/dL High: >129 mg/dL Total Cholesterol/HDL Ratio 3 POWERCHART HXLDL/HDL 2 POWERCHART Blood 03/15/2014 1:32 PM CDT Ingrid Bazan M.D. LAB BLOOD ADD-ON Final Result POWERCHART from Last 3 Months or Most Recently Relevant to Health Maintenance Insurance [employer] Advance Directives For more information, please contact: [phone] * Full Code (Latest Code Status on [...] Due to: Not medically appropriate Care Teams Dock Loader Relationship Specialty Start Date End Date Ernesto Kent M.D. [address] [place] [address] [place] [address] PCP - General 10/05/22
--- NOTE | 2024-10-08 14:51 | ED.GENADULT ---
HPI - General Adult General Chief complaint: Skin/Abscess/Foreign Body Stated complaint: Face swelling Time Seen by Provider: 10/08/24 13:09 Source: patient Mode of arrival: ambulatory Limitations: no limitations History of Present Illness HPI narrative: 38-year-old female coming in today complaining of facial pain started 3 days ago. She states she has been taking around the clock Tylenol ibuprofen and icing the face without any alleviation of her symptoms. She calls the pain as sharp and excruciating. She has no difficulty speaking, breathing or chewing. No changes are appetite. No fevers or chills. She is not congested, no runny nose. No changes in her vision, no pain with extraocular movement. She describes the pain as being located right over the right cheek. She states that the area becomes quite swollen at times. She denies trauma to the area. Related Data Previous Rx's ?Medication ?Instructions ?Recorded cefuroxime axetil 500 mg tablet 500 mg PO BID 7 days #14 tabs 09/12/22 ketorolac 10 mg tablet 10 mg PO TID 5 days #15 tabs 09/12/22 metronidazole 500 mg tablet 500 mg PO Q8H 7 days #21 tabs 09/12/22 acetaminophen 300 mg-codeine 30 mg 1 tab PO Q6H PRN pain #20 tabs 07/13/23 tablet methylprednisolone 4 mg tablets in See Rx Instructions PO .COMPLEX 07/13/23 a dose pack (Medrol (Kirit)) #21 ea ketorolac 10 mg tablet 10 mg PO TID 5 days #15 tabs 10/08/24 Allergies Allergy/AdvReac Type Severity Reaction Status Date / Time venlafaxine (From Effexor) Allergy Mild Rash Verified 10/08/24 13:22 Penicillins Allergy Unknown Verified 10/08/24 13:22 Review of Systems Status of ROS: Reports: 10 or more systems reviewed and unremarkable except as noted in History and below [facility] Medical History History of vaginal delivery (01/03/08) History of vaginal delivery (06/24/17) Hypovolemic shock (11/11/17) ?R57.1 - Hypovolemic shock (ICD-10) History of GI bleed (11/13/17) ?Z87.19 - Personal history of other diseases of the digestive system (ICD-10) Surgical History S/P dilation and curettage (06/18/22) ?Z98.890 - Other specified postprocedural states (ICD-10) Hx laparoscopic cholecystectomy (03/03/18) ?Z90.49 - Acquired absence of other specified parts of digestive tract (ICD-10) Hx of appendectomy (09/08/17) ?Z90.49 - Acquired absence of other specified parts of digestive tract (ICD-10) S/P section (04/12/19) ?Z98.891 - History of uterine scar from previous surgery (ICD-10) Family History Mother Thyroid disease Social History Narrative: Works at [employer] as an [employer] Highest level of school completed/degree received: high school graduate Smoking Status: Current some day smoker Do you use any of these nicotine containing products: None How often do you have a drink containing alcohol: monthly or less How many standard drinks containing alcohol do you have on a typical day: 1 or 2 AUDIT-C Alcohol total score: 1 Non-prescribed substance use: denies use Do you think of yourself as: straight/heterosexual Gender Identity: female Exam Narrative: Exam Narrative: Obese patient in no acute distress. Alert and oriented. Answers questions appropriately. Mood and affect are appropriate. Thoughts are goal oriented and rational. No tangential or magical thinking noted. Patient speaks in full sentences without needing to catch her breath. Voice sounds normal. No difficulty breathing or speaking. HEENT: Normocephalic atraumatic. Pupils are equally round reactive to light. Extraocular muscles are intact. No pain with extraocular movements. Conjunctivae are moist without any icterus noted. Moist mucous membranes. Posterior pharynx is normal. Neck is soft without any lymphadenopathy or thyromegaly. No masses are appreciated. Patient has very poor dentition. She has no tenderness to palpation over the teeth. No tenderness over the gums. There is no gum swelling or tenderness, no areas of fluctuance. She has tenderness to palpation directly over the maxillary sinus on the right. There is no obvious swelling of the face appreciated. No skin changes. Skin: Well perfused without any obvious rashes. Const: Vital Signs, click to edit/add: Vital Signs - 24 hr 10/08/24 13:14 Temperature 97.0 F L Pulse Rate [Pulse Oximeter] 105 H Respiratory Rate 18 Blood Pressure [Ri ght Forearm] 178/109 H Pulse Oximetry 97 Oxygen Delivery Me thod Room Air Course Course ED Course: Given the amount of discomfort the patient was endorsing we did go ahead and proceed with a facial CT. This showed axillary dental caries, no evidence of acute infection. Incidental frontal sinus osteoma. Differential diagnosis at this time includes pain secondary to poor dentition, shingles without evidence of a rash, the initiation of Zhao's palsy without any neurologic deficits seen yet, irritation of the facial nerve. At this time continue symptomatic treatment. Recommend seeing a dentist. Vital Signs Vital signs: Initial Vital Signs Temperature 97.0 F L 10/08/24 13:14 Temperature Source Temporal Artery Scan 10/08/24 13:14 Pulse Rate 105 H 10/08/24 13:14 Respiratory Rate 18 10/08/24 13:14 Blood Pressure 178/109 H 10/08/24 13:14 Blood Pressure Mean 132 H 10/08/24 13:14 Blood Pressure Position Sitting 10/08/24 13:14 Pulse Oximetry 97 10/08/24 13:14 Oxygen Delivery Method Room Air 10/08/24 13:14 Vital Signs Temperature 97.0 F L 10/08/24 13:14 Pulse Rate 105 H 10/08/24 13:14 Respiratory Rate 18 10/08/24 13:14 Blood Pressure 178/109 H 10/08/24 13:14 Pulse Oximetry 97 10/08/24 13:14 Oxygen Delivery Method Room Air 10/08/24 13:14 Temperature 97.0 F L 10/08/24 13:14 Pulse Rate 105 H 10/08/24 13:14 Respiratory Rate 18 10/08/24 13:14 Blood Pressure 178/109 H 10/08/24 13:14 Pulse Oximetry 97 10/08/24 13:14 Oxygen Delivery Method Room Air 10/08/24 13:14 Medical Decision Making MDM Narrative Medical decision making narrative: 38-year-old female with facial pain of unclear etiology. Plan per above. Imaging Data Facial CT: Attestation: I have reviewed the pertinent imaging results. Radiologist's impression: Indication: Right facial swelling and paresthesias. Technique: Contrast-enhanced CT of the face with multiplanar reconstruction utilizing 100 cc Isovue 370 iodinated intravenous contrast. Comparison: None available. Findings: No acute fracture or traumatic subluxation. Mild apparent symmetric enlargement of the palatine tonsils. Dental caries within the maxillary molar teeth. Small postinflammatory retention cyst within the left maxillary sinus. 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 Normal parotid and submandibular glands. Unremarkable orbits and intracranial structures. Impression: 1. Questionable mild enlargement of the palatine tonsils which could reflect tonsillitis in the appropriate clinical context. 2. No rim enhancing abscess. 3. Dental caries within the maxillary molar teeth. 4. Incidental right frontal sinus osteoma. Discharge Plan Discharge Clinical Impression: Acute facial pain Patient Disposition: Home, Self-Care Condition: Stable Additional Instructions: Imaging today did not have any evidence of infection. Cavities are seen in the molars. You do have a small benign bony tumor in 1 of your sinuses, nothing to be concerned about. Continue ibuprofen Tylenol as you have been doing. Recommend that you see a dentist as soon as you can. Prescriptions: New ketorolac 10 mg tablet 10 mg PO TID 5 Days Qty: 15 0RF No Action ketorolac 10 mg tablet 10 mg PO TID 5 Days Qty: 15 0RF cefuroxime axetil 500 mg tablet 500 mg PO BID 7 Days Qty: 14 0RF metronidazole 500 mg tablet 500 mg PO Q8H 7 Days Qty: 21 0RF acetaminophen-codeine 300-30 mg tablet 1 tab PO Q6H PRN (Reason: pain) Qty: 20 0RF methylprednisolone [Medrol (Kirit)] 4 mg tablets,dose pack See Rx Instructions .ROUTE .COMPLEX Qty: 21 0RF Rx Instructions: orally per package directions Follow Up/Referrals: Provider,Not a Local [Primary Care Provider] - Stand Alone Forms: [facility] Info Instructions
== END 2024-10-08 15:15 | disposition home or self-care (01) ==
PROVIDERS: Emergency Provider Family Medicine
DX: R51.9 Headache, unspecified (principal)
CPT/HCPCS: 70487; 99283; 99284; 99285; Q9967

== ENCOUNTER 2025-01-27 17:17 | Emergency (ER) | payer OTHER, SELFPAY ==
--- OUTSIDE RECORDS SUMMARY | 2024-12-25 10:30 | XMS_ITS | Encounter Summary ---
Author Organization [facility] Address [address] [place] [address] Care Team Providers Care Integrated Circuit Layout Designer Name Role Phone Ernesto Kent M.D. Primary Care Provider [phone] Reason for Referral * Outpatient (Routine) - Authorized Specialty Diagnoses / Procedures Referred By Contac t Referred To Contact Diagnoses Bradycardia Procedures ECG 12 Lead AL EKG 12 LEAD W I&R Venu Collins P.A.-C., P.A. [address] [place] [address] Phone: tel: fax: [facility] Referral ID Status Reason Start Date Expiration Date V isits Requested Visits Authorized [id number] Authorized 12/25/2024 03/27/2026 1 1 * Outpatient (Routine) - Authorized Specialty Diagnoses / Procedures Referred By Contac t Referred To Contact Family Medicine Diagnoses Attention Deficit Hyperactive Disorder Venu Collins P.A.-C., P.A. [address] [place] [address] Phone: tel: fax: [facility] Region Referral ID Status Reason Start Date Expiration Date V isits Requested Visits Authorized [id number] Authorized 12/25/2024 06/26/2026 1 1 * Outpatient (Routine) - Authorized Specialty Diagnoses / Procedures Referred By Roberto t Referred To Contact Diagnoses Pain Knee Left Procedures DX Knee Left 3 Views Venu Collins P.A.-C., P.A. [address] [place] [address] Phone: tel: fax: [facility] Referral ID Status Reason Start Date Expiration Date V isits Requested Visits Authorized [id number] Authorized 12/25/2024 03/27/2026 1 1 * Medication Prior Authorization - Closed Specialty Diagnoses / Procedures Referred By Roberto t Referred To Contact Diagnoses Body Mass Index 60.0 To 69.9 Adult (HCC) Venu Collins P.A.-C., P.A. [address] [place] [address] Phone: tel: fax: Referral ID Status Reason Start Date Expiration Date Visits Re quested Visits Authorized [id number] Closed 1 1 * Medication Prior Authorization - Closed Specialty Diagnoses / Procedures Referred By Shabnammp t Referred To Contact Diagnoses Body Mass Index 60.0 To 69.9 Adult (HCC) Venu Collins P.A.-C[facility] P.A. [address] [place] [address] Phone: tel: fax: Referral ID Status Reason Start Date Expiration Date Visits Re quested Visits Authorized [id number] Closed 1 1 * Medication Prior Authorization - Closed Specialty Diagnoses / Procedures Referred By Contac t Referred To Contact Diagnoses Body Mass Index 60.0 To 69.9 Adult ([facility]) Venu Collins P.A.-C., P.A. [address] [place] [address] Phone: tel: fax: Referral ID Status Reason Start Date Expiration Date Visits Re quested Visits Authorized [id number] Closed 1 1 * Medication Prior Authorization - Closed Specialty Diagnoses / Procedures Referred By Contac t Referred To Contact Diagnoses Body Mass Index 60.0 To 69.9 Adult ([facility]) Venu Collins P.A.-C., P.A. [address] [place] [address] Phone: tel: fax: Referral ID Status Reason Start Date Expiration Date Visits Re quested Visits Authorized [id number] Closed 1 1 * Medication Prior Authorization - Closed Specialty Diagnoses / Procedures Referred By Contac t Referred To Contact Diagnoses Body Mass Index 60.0 To 69.9 Adult ([facility]) Venu Collins P.A.-C., P.A. [address] [place] [address] Phone: tel: fax: Referral ID Status Reason Start Date Expiration Date Visits Re quested Visits Authorized [id number] Closed 1 1 * Medication Prior Authorization - Authorized Specialty Diagnoses / Procedures Referred By Contac t Referred To Contact Diagnoses Body Mass Index 60.0 To 69.9 Adult ([facility]) Venu Collins P.A.-C., P.A. [address] [place] [address] Phone: tel: fax: Referral ID Status Reason Start Date Expiration Date V isits Requested Visits Authorized [id number] Authorized 12/25/2024 08/22/2025 1 1 Reason for Visit * Reason Comments Annual Exam Weight Management Knee Pain Other Heart rate is lower her watch says numerous times ADD Anxiety Depression * Appointment Request (Routine) - Closed Specialty Diagnoses / Procedures Referred By Roberto chacon Referred To Contact Family Medicine Referral ID Status Reason Start Date Expiration Date Visits Re quested Visits Authorized [id number] Closed 12/05/2024 03/07/2026 1 1 Encounter Details Date Type Department Care Team (Latest Contact Info) Description 12/25/2024 10:30 AM CDT Comprehensive Visit Department of Family Medicine, [facility], in [place], [place] [address] [place] [phone] Venu Collins P.A.-C., P.A. [address] [place] [address] Body Mass Index 60.0 To 69.9 Adult ([facility]) (Primary Dx); Apnea Sleep Obstructive; Attention Deficit Hyperactive Disorder; Major Depressive Disorder, Recurrent, Unspecified; Migraine Without Aura Not Intractable Without Status Migrainosus; Pain Knee Left; Bradycardia; Abuse Tobacco Smoking; Intrauterine Device Status; Screening Examination Diabetes Mellitus; Screening Lipid Discharge Disposition: Home or Self Care Social History Tobacco Use Types Packs/Day Years Used Date Smoking Tobacco: Some Days Cigarettes Smokeless Tobacco: Never Comments:Smoking 1-2 cigaret av monthly Alcohol Use Standard Drinks/Week Comments Not Currently 0 (1 standard drink = 0.6 oz pur e alcohol) occasional 1-2 a year [facility] Utilities Answer Date Recorded In the past 12 months has e electric, gas, oil, or water company threatened to shut off services in your home? No 12/25/2024 Humiliation, Afraid, Rape, and Kick questionnair e [...] often do you attend chur ch or baptism services? More than 4 times per year [...] 07/09/2020 PHQ-2 Answer Date Recorded PHQ-2 Score 3 12/25/2024 [facility] - Occupational [...] to strenuous exercise (like a brisk walk)? 4 days 12/25/2024 On average, how many minutes do you engage in exercise at this level? 20 min 12/25/2024 Hunger Vital Sign Answer Date Recorded Within the past 12 months, y ou worried that your food would run out before you got the money to buy more. Never true 12/26/19 25 Within the past 12 months, t he food you bought just didn't last and you didn't have money to get more. Never true 12/25/2024 PRAPARE - Transportation Answer Date Re corded In the past 12 months, has l ack of transportation kept you from medical appointments or from getting medications? No 12/2024 In the past 12 months, has l ack of transportation kept you from meetings, work, or from getting things needed for daily living? No 12/25/2024 Depression Answer Date Recor ded PHQ-9 Total Score (max 27) 9 12/25 Nutrition Answer Date Recorded On average, how many serving s of fruits and vegetables do you eat per day (serving size is equal to 1 cup or approximately the size of a tennis ball)? 0-2 12/25/2024 Dental Answer Date Recorded Dental: Regular Dentist Yes 12/26/19 Employment Answer Date Recorded Employment status Employed and actively working without restrictions 12/25/2024 Housing Stability Answer Date Recorded What is your living situation today? I have a [facility] to live 12/25/2024 Education Answer Date Recorded What is the highest level of school you have completed or the highest degree you have received? 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 Not on file Not on file documented as of this encounter Last Filed Vital Signs Vital Sign Reading Time Taken Comments Blood Pressure 136/86 12/25/2024 10:21 AM CDT Pulse 97 12/25/2024 10:21 AM CDT Temperature 36.4 C (97.5 F) 12/25/2024 10:21 AM CDT Respiratory Rate - - Oxygen Saturation - - Inhaled Oxygen Concentration - - Weight 170 kg (375 lb 3.6 oz) 12/25/2024 10:21 A M CDT Height 157.3 cm (5' 1.93) 12/25/2024 10:21 AM C DT Body Mass Index 68.79 12/25/2024 10:21 AM CDT documented in this encounter Progress Notes * Venu Collins P.A.-C., [place] - 12/25/2024 10:30 AM CDT DATE OF VISIT: 12/25/2024 SUBJECTIVE CHIEF COMPLAINT / REASON FOR VISIT Carol Cooley is a 38 y.o. female who presents for evaluation of Annual Exam, Weight Management, Knee Pain, Other (Heart rate is lower her watch says numerous times ), ADD, Anxiety, and Depression. The patient verbally consented to an audio recording of their visit to assist with the completion of documentation. History of Present Illness Mrs. Carol Cooley is a 38 year old female who presents with concerns about weight loss, knee pain, and episodes of low heart rate. She is seeking assistance with weight loss, having been unable to achieve it independently. She considered but decided against weight loss surgery. She has previously consulted a dietitian and possesses literature from a weight loss surgery program. Her overnight work shifts disrupt her eating and sleeping patterns, complicating weight management. She has a history of sleep apnea but does not currently use a CPAP machine as it was disposed of during a move. She experiences daily knee pain for the past month, impacting her ability to walk and sit. The painoccasionally causes her knee to buckle, especially when descending stairs. 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 A previous cortisone injection provided relief for nearly a year. She experiences episodes of low heart rate, recorded at 38-40 bpm by her watch during overnight shifts. She does not feel ill during these episodes and reports no associated symptoms. She has a history of anxiety, depression, and ADD, diagnosed in sixth grade. She was on Ritalin during high school but discontinued it as an adult. She feels unfocused and overwhelmed, particularly as a single parent of three children. She has tried various medications for anxiety and depression, including fluoxetine, Lexapro, and Wellbutrin, but has not found them effective or has forgotten to take them. She experiences migraines, which have decreased in frequency to about three per month since seeing a chiropractor. Migraines are severe, rated as 10/10, and are associated with nausea, photophobia, phonophobia, and sometimes visual disturbances. She uses Zofran for nausea and has previously used Imitrex for migraine relief. She occasionally experiences dyspnea and has used an inhaler since having pneumonia, which she finds helpful. She has not been diagnosed with asthma. She smokes occasionally, primarily in social settings or when not with her children, and has attempted to quit cold turkey. She does not smoke at home or around her children. OBJECTIVE VITAL SIGNS BP 136/86 Pulse 97 Temp 36.4 ??C (Temporal) Ht 157.3 cm Wt (!) 170 kg BMI 68.79 kg/m?? Physical Exam Vitals and nursing note reviewed. Constitutional General: She is not in acute distress. Appearance: Normal appearance. HENT Head: Normocephalic and atraumatic. Cardiovascular Rate and Rhythm: Normal rate and regular rhythm. Pulses: Normal pulses. Heart sounds: Normal heart sounds. No murmur heard. No friction rub. No gallop. Pulmonary Effort: Pulmonary effort is normal. No respiratory distress. Breath sounds: Normal breath sounds. No stridor. No wheezing, rhonchi or rales. Skin General: Skin is warm and dry. Capillary Refill: Capillary refill takes less than 2 seconds. Neurological General: No focal deficit present. Mental Status: She is alert and oriented to person, place, and time. Psychiatric Attention and Perception: Attention and perception normal. Mood and Affect: Mood is anxious and depressed. Affect is not tearful. Speech: Speech normal. Behavior: Behavior normal. Behavior is cooperative. Thought Content: Thought content does not include homicidal or suicidal ideation. Thought content does not include homicidal or suicidal plan. ASSESSMENT/ PLAN Body Mass Index 60.0 To 69.9 Adult (HCC) She seeks assistance with weight loss and has decided against bariatric surgery. GLP-1 medications,initially for diabetes, are now used for weight loss due to their mechanisms of slowing gastric emptying, reducing appetite, and increasing insulin sensitivity. She is informed about the common side effect of nausea, which often improves over time. The medication requires prior authorization from insurance, expected to be covered by [facility]. - Prescribe tirzepatide starting at the lowest dose and titrate monthly to the maximum dose. - Send prescriptions to the pharmacy. - Initiate prior authorization process for tirzepatide. Orders: Hepatic Function Panel; Future tirzepatide (Zepbound) 2.5 mg/0.5 mL injection pen; Inject 2.5 mg under the skin every 7 (seven) days for 27 days. Weeks 1 through 4 tirzepatide (Zepbound) 5 mg/0.5 mL injection pen; Inject 5 mg under the skin every 7 (seven) days for 27 days. Weeks 5 through 8 tirzepatide (Zepbound) 7.5 mg/0.5 mL injection pen; Inject 7.5 mg under the skin every 7 (seven) days for 27 days. Weeks 9 through 12 tirzepatide (Zepbound) 10 mg/0.5 mL injection pen; Inject 10 mg under the skin every 7 (seven) daysfor 27 days. Weeks 13 through 16 tirzepatide (Zepbound) 12.5 mg/0.5 mL injection pen; Inject 12.5 mg under the skin every 7 (seven) days for 27 days. Weeks 17 through 20 tirzepatide (Zepbound) 15 mg/0.5 mL injection pen; Inject 15 mg under the skin every 7 (seven) days. Maintenance Apnea Sleep Obstructive She reports daytime exhaustion and does not currently use a CPAP machine due to losing it during a move. Recommending resuming CPAP use to address fatigue and potentially improve migraine frequency. - Prescribe a new CPAP machine and send the order to the local medical supply store. Orders: DME CPAP; DME Order Attention Deficit Hyperactive Disorder Diagnosed with ADD in sixth grade and previously on Ritalin. She reports difficulty focusing and managing tasks as a single parent. Decision made to address ADD first, as it is perceived as the primary issue. - Prescribe Adderall XR 15 mg. Orders: amphetamine-dextroamphetamine (Adderall XR) 15 mg 24 hr capsule; Take 1 capsule (15 mg total) by mouth daily. Family Medicine office visit (clinic); Future Major Depressive Disorder, Recurrent, Unspecified She reports feeling overwhelmed and having difficulty focusing, potentially related to anxiety and depression. Currently seeing a psychologist. Previous medications include fluoxetine, Lexapro, Wellbutrin, and Effexor, but she does not recall their effectiveness. Decision made to address ADD first,as it is perceived as the primary issue. Migraine Without Aura Not Intractable Without Status Migrainosus Experiences migraines approximately three times a month, with symptoms including pulsating pain, photophobia, phonophobia, and nausea. Migraines have improved with career specialist but remain significant. Zofran has been helpful for nausea. Considering preventive treatment if migraines persist after addressing sleep apnea. Discussed potential use of topiramate or nortriptyline for prevention, with additional benefits for weight loss and anxiety, respectively. - Refill Zofran for nausea. - Prescribe sumatriptan for acute migraine treatment. - Consider preventive migraine medication if migraines persist after CPAP use. Orders: ondansetron (Zofran) 4 mg tablet; Take 1 tablet (4 mg total) by mouth every 8 (eight) hours as needed for nausea or vomiting. SUMAtriptan (Imitrex) 100 mg tablet; Take 1 tablet (100 mg total) by mouth as needed for migraine. May repeat dose once in 2 hours if migraine is unresolved. Do not exceed 200 mg in 24 hours. 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 Painis daily and sometimes causes the knee to buckle. No recent injury reported. Differential includes arthritis and overuse. Previous cortisone injection was effective for nearly a year. - Order x-ray of the left knee to assess for arthritis. - Consider referral for cortisone injection if x-ray shows significant arthritis. - Consider physical therapy if x-ray is unremarkable. Orders: DX Knee Left 3 Views; Future Bradycardia Reports episodes of low heart rate (38-40 bpm) detected by her watch, but she is asymptomatic. Suspected sensor issue with the watch. No further investigation planned unless symptoms develop. - Order ECG to assess heart's electrical activity. Orders: ECG 12 Lead; Future Abuse Tobacco Smoking Only smokes a few times a month. Plans to quit on her own. Intrauterine Device Status Noted. Screening Examination Diabetes Mellitus Orders: Glucose, Fasting; Future Hemoglobin A1c; Future Screening Lipid Orders: Lipid Panel; Future Patient/caregiver was instructed to contact the clinic if symptoms fail to improve as discussed, worsen, or change. Patient/caregiver was in agreement with the care plan and all questions were answered. Health maintenance was discussed, and the patient/caregiver was encouraged to complete these if not already completed. Patient left in no acute distress. Venu Collins P.A.-C., P.A. documented in this encounter Miscellaneous Notes * Assessment & Plan Note - Venu Collins P.A.-C., P.A. - 12/25/2024 10:30 AM CDTAssociated Problem(s): Body Mass Index 60.0 To 69.9 Adult (HCC) She seeks assistance with weight loss and has decided against bariatric surgery. GLP-1 medications,initially for diabetes, are now used for weight loss due to their mechanisms of slowing gastric emptying, reducing appetite, and increasing insulin sensitivity. She is informed about the common side effect of nausea, which often improves over time. The medication requires prior authorization from insurance, expected to be covered by [facility]. - Prescribe tirzepatide starting at the lowest dose and titrate monthly to the maximum dose. - Send prescriptions to the pharmacy. - Initiate prior authorization process for tirzepatide. Orders: Hepatic Function Panel; Future tirzepatide (Zepbound) 2.5 mg/0.5 mL injection pen; Inject 2.5 mg under the skin every 7 (seven) days for 27 days. Weeks 1 through 4 tirzepatide (Zepbound) 5 mg/0.5 mL injection pen; Inject 5 mg under the skin every 7 (seven) days for 27 days. Weeks 5 through 8 tirzepatide (Zepbound) 7.5 mg/0.5 mL injection pen; Inject 7.5 mg under the skin every 7 (seven) days for 27 days. Weeks 9 through 12 tirzepatide (Zepbound) 10 mg/0.5 mL injection pen; Inject 10 mg under the skin every 7 (seven) daysfor 27 days. Weeks 13 through 16 tirzepatide (Zepbound) 12.5 mg/0.5 mL injection pen; Inject 12.5 mg under the skin every 7 (seven) days for 27 days. Weeks 17 through 20 tirzepatide (Zepbound) 15 mg/0.5 mL injection pen; Inject 15 mg under the skin every 7 (seven) days. Maintenance * Assessment & Plan Note - Venu Collins P.A.-C., P.A. - 12/25/2024 10:30 AM CDTAssociated Problem(s): Apnea Sleep Obstructive She reports daytime exhaustion and does not currently use a CPAP machine due to losing it during a move. Recommending resuming CPAP use to address fatigue and potentially improve migraine frequency. - Prescribe a new CPAP machine and send the order to the local medical supply store. Orders: DME CPAP; DME Order * Assessment & Plan Note - Venu Collins P.A.-C., P.A. - 12/25/2024 10:30 AM CDTAssociated Problem(s): Attention Deficit Hyperactive Disorder Diagnosed with ADD in sixth grade and previously on Ritalin. She reports difficulty focusing and managing tasks as a single parent. Decision made to address ADD first, as it is perceived as the primary issue. - Prescribe Adderall XR 15 mg. Orders: amphetamine-dextroamphetamine (Adderall XR) 15 mg 24 hr capsule; Take 1 capsule (15 mg total) by mouth daily. Family Medicine office visit (clinic); Future * Assessment & Plan Note - Venu Collins P.A.-C., P.A. - 12/25/2024 10:30 AM CDTAssociated Problem(s): Major Depressive Disorder, Recurrent, Unspecified She reports feeling overwhelmed and having difficulty focusing, potentially related to anxiety and depression. Currently seeing a psychologist. Previous medications include fluoxetine, Lexapro, Wellbutrin, and Effexor, but she does not recall their effectiveness. Decision made to address ADD first,as it is perceived as the primary issue. * Assessment & Plan Note - Venu Collins P.A.-C., P.A. - 12/25/2024 10:30 AM CDTAssociated Problem(s): Migraine Without Aura Not Intractable Without Status Migrainosus Experiences migraines approximately three times a month, with symptoms including pulsating pain, photophobia, phonophobia, and nausea. Migraines have improved with career specialist but remain significant. Zofran has been helpful for nausea. Considering preventive treatment if migraines persist after addressing sleep apnea. Discussed potential use of topiramate or nortriptyline for prevention, with additional benefits for weight loss and anxiety, respectively. - Refill Zofran for nausea. - Prescribe sumatriptan for acute migraine treatment. - Consider preventive migraine medication if migraines persist after CPAP use. Orders: ondansetron (Zofran) 4 mg tablet; Take 1 tablet (4 mg total) by mouth every 8 (eight) hours as needed for nausea or vomiting. SUMAtriptan (Imitrex) 100 mg tablet; Take 1 tablet (100 mg total) by mouth as needed for migraine. May repeat dose once in 2 hours if migraine is unresolved. Do not exceed 200 mg in 24 hours. * Assessment & Plan Note - Venu Collins P.A.-C., P.A. - 12/25/2024 10:30 AM CDTAssociated Problem(s): Abuse Tobacco Smoking Only smokes a few times a month. Plans to quit on her own. * Assessment & Plan Note - Venu Collins P.A.-C., P.A. - 12/25/2024 10:30 AM CDTAssociated Problem(s): Intrauterine Device Status Noted. documented in this encounter Plan of Treatment Scheduled Orders Name Type Priority Associated Diagnoses Orde r Schedule DX Knee Left 3 Views Imaging RAD - Routine (most inpatients and all outpatients) Pain Knee Left Expected: 12/25/2024, Expires: 03/27/2026 ECG 12 Lead ECG Routine Bradycardia Expected: 12/25/2024, Expires: 03/27/2026 Scheduled Referrals Name Type Priority Associated Diagnoses Orde r Schedule Family Medicine office visit (clinic) Outpatient Referral Routine Attention Deficit Hyperactive Disorder Expected: 12/25/2024, Expires: 03/27/2026 documented as of this encounter Results * Hepatic Function Panel (01/25/2025 6:04 AM CDT) Bilirubin, Total, P 0.5 0.0 - 1.2 mg/dL 01/25/2025 6:23 AM CDT CNFL Bilirubin, Direct, P 0.2 0.0 - 0.3 mg/dL 01/25/2025 6:23 AM CDT CNFL Aspartate Aminotransferase (AST), P 20 8 - 43 U/L 01/25/2025 6:23 AM CDT CNFL Alanine Aminotransferase (ALT), P 37 7 - 45 U/L 01/25/2025 6:23 AM CDT CNFL Alkaline Phosphatase, P 63 35 - 104 U/L 01/25/2025 6:23 AM CDT CNFL Albumin, P 3.9 3.5 - 5.0 g/dL 01/25/2025 6:23 AM CDT CNFL Protein, Total, P 6.9 6.3 - 7.9 g/dL 01/25/2025 6:23 AM CDT CNFL Blood (Blood, Venous) 01/25/2025 6:04 AM CDT 01/25/2025 6:05 AM CDT us Venu Collins P.A.-C., P.A. LAB BLOOD ADD-ON Final Result [address] [address], [address] [address] * Hemoglobin A1c (01/25/2025 6:04 AM CDT) Hemoglobin A1c, B 5.3 4.2 - 5.6 % 01/25/2025 6:18 AM CDT FL Blood (Blood, Venous) 01/25/2025 6:04 AM CDT 01/25/2025 6:05 AM CDT Venu Collins P.A.-C., P.A. LAB BLOOD ADD-ON Final Result [address] [address], [address] [address] * Glucose, Fasting (01/25/2025 6:04 AM CDT) Glucose, P 88 70 - 100 mg/dL 01/25/2025 6:19 AM CDT CNFL Last Intake 2 hr 01/25/2025 6:05 AM CDT FL Blood (Blood, Venous) 01/25/2025 6:04 AM CDT 01/25/2025 6:05 AM CDT us Venu CarlsonC., P.A. LAB BLOOD NON AD D-ON Final Result [address] [address], [address] [address] documented in this encounter Visit Diagnoses Diagnosis Body Mass Index 60.0 To 69.9 Adult (HCC)- Primary Apnea Sleep Obstructive Attention Deficit Hyperactive Disorder Major Depressive Disorder, Recurrent, Unspecified Migraine Without Aura Not Intractable Without Status Migrainosus Pain Knee Left Bradycardia Abuse Tobacco Smoking Intrauterine Device Status Screening Examination Diabetes Mellitus Screening Lipid documented in this encounter Additional Health Concerns Assessment Noted Time PHQ-9 Depression Total Score: 9 12/26/19 25 9:47 AM CDT documented as of this encounter Care Teams Integrated Circuit Layout Designer Relationship Specialty Start Date End Date Ernesto Kent M.D. [address] [place] [address] PCP - General 10/05/22 documented as of this encounter
--- OUTSIDE RECORDS SUMMARY | 2025-01-25 05:58 | XMS_ITS | Encounter Summary ---
Author Organization [facility] Address [address] [place] [address] Care Team Providers Care Personal Banking Advisor Name Role Phone Ernesto Kent M.D. Primary Care Provider [phone] Encounter Details Date Type Department Care Team (Latest Contact Info) Description 01/25/2025 5:58 AM CDT - 01/25/2025 11:59 PM CDT Hospital Encounter Department of Laboratory Medicine in [address] [phone] Ernesto Kent M.D. [address] [place] [phone] Screening Lipid; Body Mass Index 60.0 To 69.9 Adult (HCC); Screening Examination Diabetes Mellitus Discharge Disposition: Home or Self Care Social History Tobacco Use Types Packs/Day Years Used Date Smoking Tobacco: Some Days Cigarettes Smokeless Tobacco: Never Comments:Smoking 1-2 cigaret av monthly Alcohol Use Standard Drinks/Week Comments Not Currently 0 (1 standard drink = 0.6 oz pur e alcohol) occasional 1-2 a year [facility] Utilities Answer Date Recorded In the past 12 months has [employer], gas, oil, or water [employer] threatened to shut off services in your [...] Answer Date Recorded PHQ-2 Score 3 12/25/2024 [facility] Occup[facility] - Occupational Stress [...] medical appointments or from getting medications? No 05/0 12/2024 In the past 12 months, has [...] your living situation today? I have a [facility] place to live 12/25/2024 Education Answer Date Recorded What is the highest level of school you have completed or the highest degree you have received? 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 06/24/2017 albuterol 90 mcg/actuation inhaler Inhale 2 puffs every 4 (four) hours as needed for shortness of breath. 18 g 12/25/2024 amphetamine-dextr oamphetamine (Adderall XR) 15 mg 24 hr capsuleIndication s:Attention Deficit Hyperactive Disorder Take 1 capsule (15 mg total) by mouth daily. 30 capsule 12/25/2024 DME CPAPIndications:A pnea Sleep Obstructive DME Order 1 each 12/25/2024 levonorgestreL (MIRENA) 20 mcg/24 hours (6 yrs) 52 mg IUD 1 each by intrauterine route continuously. ondansetron (Zofran) 4 mg tabletIndications :Migraine Without Aura Not Intractable Without Status Migrainosus Take 1 tablet (4 mg total) by mouth every 8 (eight) hours as needed for nausea or vomiting. 30 tablet 3 12/25/2024 SUMAtriptan (Imitrex) 100 mg tabletIndications :Migraine Without Aura Not Intractable Without Status Migrainosus Take 1 tablet (100 mg total) by mouth as needed for migraine. May repeat dose once in 2 hours if migraine is unresolved. Do not exceed 200 mg in 24 hours. 18 tablet 3 12/25/2024 tirzepatide (Zepbound) 10 mg/0.5 mL injection penIndications:Jose Martin dy Mass Index 60.0 To 69.9 Adult (HCC) Inject 10 mg under the skin every 7 (seven) days for 27 days. Weeks 13 through 16 2 mL 03/19/2025 5 tirzepatide (Zepbound) 12.5 mg/0.5 mL injection penIndications:Jose Martin dy Mass Index 60.0 To 69.9 Adult (HCC) Inject 12.5 mg under the skin every 7 (seven) days for 27 days. Weeks 17 through 20 2 mL 04/16/2025 5 tirzepatide (Zepbound) 15 mg/0.5 mL injection penIndications:Jose Martin dy Mass Index 60.0 To 69.9 Adult (HCC) Inject 15 mg under the skin every 7 (seven) days. Maintenance 2 mL 3 05/14/2025 tirzepatide (Zepbound) 5 mg/0.5 mL injection penIndications:Jose Martin dy Mass Index 60.0 To 69.9 Adult (HCC) Inject 5 mg under the skin every 7 (seven) days for 27 days. Weeks 5 through 8 2 mL 01/22/2025 5 tirzepatide (Zepbound) 7.5 mg/0.5 mL injection penIndications:Jose Martin dy Mass Index 60.0 To 69.9 Adult (HCC) Inject 7.5 mg under the skin every 7 (seven) days for 27 days. Weeks 9 through 12 2 mL 02/19/2025 5 documented as of this encounter Plan of Treatment Not on file documented as of this encounter Procedures Procedure Name Priority Date/Time Associated Diagnosis Comments LIPID PANEL, S Routine 01/25/2025 6:04 AM CDT Screening Lipid HEPATIC FUNCTION PANEL, S Routine 01/25/2025 6:04 AM CDT Body Mass Index 60.0 To 69.9 Adult (HCC) HEMOGLOBIN A1C, B Routine 01/25/2025 6:0 4 AM CDT Screening Examination Diabetes Mellitus GLUCOSE, FASTING, S/P Routine 01/25/2025 6:04 AM CDT Screening Examination Diabetes Mellitus documented in this encounter Results * Glucose, Fasting (01/25/2025 6:04 AM CDT) Glucose, P 88 70 - 100 mg/dL 01/25/2025 6:19 AM CDT CNFL Last Intake 2 hr 01/25/2025 6:05 AM CDT CNFL Blood (Blood, Venous) 01/25/2025 6:04 AM CDT 01/25/2025 6:05 AM CDT Venu Gomez.A.-C., P.A. LAB BLOOD NON AD D-ON Final Result [address] [address], [facility] in [address] [address] * Hemoglobin A1c (01/25/2025 6:04 AM CDT) Hemoglobin A1c, B 5.3 4.2 - 5.6 % 01/25/2025 6:18 AM CDT CNFL Blood (Blood, Venous) 01/25/2025 6:04 AM CDT 01/25/2025 6:05 AM CDT Venu Gomez.A.-C., P.A. LAB BLOOD ADD-ON Final Result [address] [address], [facility] CNFL [facility] in [address] [address] * Hepatic Function Panel (01/25/2025 6:04 AM [...] P.A.-C., P.A. LAB BLOOD ADD-ON Final Result [facility] [address] [place] [address], [facility] CNFL [facility] in [address] [address] * (ABNORMAL) Lipid Panel (01/25/2025 6:04 AM CDT) Triglycerides 126 mg/dL 01/25/2025 6:23 AM CDT CNFL Comment: ----REFERENCE VALUE---- Normal: <150 mg/dL Borderline High: 150-199 mg/dL High: 200-499 mg/dL Very High: > or =500 mg/dL Cholesterol, Total 133 mg/dL 2024 6:23 AM CDT CNFL Comment: ----REFERENCE VALUE---- Desirable: < 200 mg/dL Borderline High: 200 - 239 mg/dL High: > or = 240 mg/dL Cholesterol, LDL, Calculated 69 mg/dL 01/25/2025 6:23 AM CDT CNFL Comment: ----REFERENCE VALUE---- Desirable: <100 mg/dL Above Desirable: 100-129 mg/dL Borderline High: 130-159 mg/dL High: 160-189 mg/dL Very High: >=190 mg/dL ----ADDITIONAL INFORMATION---- LDL cholesterol calculated using the Raza/NIH equation. Cholesterol, HDL 41(L) >=50 mg/dL 01/26/20 6:23 AM CDT CNFL Cholesterol, Non-HDL, Calculated 92 mg/dL 01/25/2025 6:23 AM CDT CNFL Comment: ----REFERENCE VALUE---- Desirable: <130 mg/dL Above Desirable: 130-159 mg/dL Borderline High: 160-189 mg/dL High: 190-219 mg/dL Very High: > or =220 mg/dL Fasting (8 HR or more) No 01/25/2025 6:04 AM CDT CNFL Blood (Blood, Venous) 01/25/2025 6:04 AM CDT 01/25/2025 6:05 AM CDT us Ernesto Kent M.D. LAB BLOOD ADD-ON Final Re sult [facility] [address] [place] [address], [facility]FL [facility] in [address] [address] documented in this encounter Visit Diagnoses Diagnosis Screening Lipid Body Mass Index 60.0 To 69.9 Adult (HCC) Screening Examination Diabetes Mellitus documented in this encounter Additional Health Concerns Assessment Noted Time PHQ-9 Depression Total Score: 9 12/26/19 25 9:47 AM CDT documented as of this encounter Care Teams Personal Banking Advisor Relationship Specialty Start Date End Date Ernesto Kent M.D. [address] [place] [phone] PCP - General 10/05/22 documented as of this encounter
--- OUTSIDE RECORDS SUMMARY | 2025-01-27 17:19 | XMS_ITS | Encounter Summary ---
Author Organization [facility] Address [address] [place] [address] Care Team Providers Care Alterations Manager Name Role Phone Ernesto Kent M.D. Primary Care Provider [phone] Encounter Details Date Type Department Care Team (Late st Contact Info) Description 01/26/2025 Results Follow-Up Department of Family Medicine, [facility], in [place], [place] [address] [place] [address] Ernesto Kent M.D. [address] [place] [address] Lipid Panel Social History Tobacco Use Types Packs/Day Years Used Date Smoking Tobacco: Some Days Cigarettes Smokeless Tobacco: Never Comments:Smoking 1-2 cigaret av monthly Alcohol Use Standard Drinks/Week Comments Not Currently 0 (1 standard drink = 0.6 oz pur e alcohol) occasional 1-2 a year [facility] Utilities Answer Date Recorded In the past 12 months has [employer], gas, oil, or water [employer] threatened to shut off services in your [...] often do you attend chur ch or religion services? More than 4 times per year [...] Answer Date Recorded PHQ-2 Score 3 12/25/2024 [facility] Occupat ional [facility] - Occupational Stress Questionnaire Answer Date Recorded [...] your living situation today? I have a [facility] place to live 12/25/2024 Education Answer Date Recorded What is the highest level of school you have completed or the highest degree you have received? 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 [address] [place] [address] PCP - General 10/05/22 documented as of this encounter
--- OUTSIDE RECORDS SUMMARY | 2025-01-27 17:19 | XMS_ITS | Clinical Summary ---
Author Organization [facility] Address [address] [place] [address] Care Team Providers Care Sales Support Representative Name Role Phone Shannon Jang MD Primary Care Provider [phone] Pcp, No Unavailable Unavailable Venkata Olmstead MD Unavailable [phone] Suni Cummings RN Unavailable [phone] Unavailable [phone] Allergies Active Allergy Reactions Criticality Noted Date [...] Dysthymic disorder 08/09/2023 Obesity 06/11/2023 ADD 12/04/1999 Family History Medical History Relation Name Comments Genetic Other sister cystic f ibrosis Relation Name Status Comments Other Social History Tobacco Use Types Packs/Day Years Used Date Smoking Tobacco: Some Days Cigarettes 0.3 20.4 Started: 2004 Passive Smoke Exposure: Current Smokeless [...] on file 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 Gender Identity Not on file Sexual Orientation Not on file Obstetrics History Last Filed Vital Signs Vital Sign Reading Time Taken Comments Blood Pressure 120/86 04/27/2024 10:38 AM CDT Pulse 80 04/27/2024 10:38 AM CDT Temperature 36.8 C (98.2 F) 05/12/2004 12:00 AM CDT Respiratory Rate 16 10/05/2002 12:00 AM GENERAL PRODUCTION WORKER Oxygen Saturation - - Inhaled Oxygen Concentration - - Weight 159.2 kg (351 lb) 09/05/2024 4:00 PM GENERAL PRODUCTION WORKER Height 158.5 cm (5' 2.4) 10/12/2024 12:00 PM CS T Body Mass Index 63.37 09/05/2024 4:00 PM GENERAL PRODUCTION WORKER Plan of Treatment Health Maintenance Due Date Last Done Comments Tdap 1997 HIV for age 15-65 2001 Hepatitis C screening for ag e 18-79 2004 Hepatitis B series for 19+ ( 1 of 3 - 19+ 3-dose series) 2005 Pneumococcal series for age 6-49 (1 of 2 - PCV) 2005 Tetanus booster 2006 Pap test for age 21-65 12/27/2007 10/05/2002 COVID-19 vaccine series (2 - season) 2024 11/29/2020 Influenza Vaccine (Season Ended) 2025 Depression screening for age 12+ 05/09/2025 05/09/2024, 05/09/2024, 06/11/2023 BMI (ht and wt on same day) for age 18+ 09/05/2025 09/05/2024, 04/27/2024, 05/25/2023, Additional history exists Procedures Procedure Name Priority Date/Time Associated Diagnosis Comments HPV HIGH RISK Routine 10/05/2002 10:43 AM GENERAL PRODUCTION WORKER from Last 3 Months or Most Recently Relevant to Health Maintenance Results * HPV THIN PREP (10/05/2002 10:43 AM GENERAL PRODUCTION WORKER) HPV RESULTS Normal 10/05/2002 10:4 3 AM GENERAL PRODUCTION WORKER Narrative 02/02/2004 12:28 PM CDT Ordered by an unspecified provider. us Other Clinical Staff MICROBIOLOGY Final Resul t from Last 3 Months or Most Recently Relevant to Health Maintenance Insurance [employer] Care Teams Sales Support Representative Relationship Specialty Start Date End Date Shannon Jang MD [address] [place] [address] PCP - General Obstetrics and Gynecology 01/26/23 Pcp, No . 01/26/23 Venkata Olmstead MD [address] [place] [address] Consulting Physician Surgery - General 02/16/23 Suni Cummings, RN [address] [facility] [address] [place] [address] Plasterer Spot Registered Nurse 02/16/[address] [place], [place] [address] [address] Boom Operator 04/27/24
--- OUTSIDE RECORDS SUMMARY | 2025-01-27 17:19 | XMS_ITS | Clinical Summary ---
Author Organization [facility] Address [address] [place] [address] Care Team Providers Care Research Fellow Name Role Phone Ernesto Kent M.D. Primary Care Provider [phone] Source Comments Patient records contain information from all sites at [facility]. For routine questions regarding patient records, call [phone] during business hours, M-F 8:00 AM - 5:00 PM Central Time. Record requests for emergency care only can be directed to [phone] at any time.[facility] Allergies Active Allergy Reactions Criticality Noted Date [...] 1 each by intrauterine route continuously. Active tirzepatide (Zepbound) 2.5 mg/0.5 mL injection penIndications: Body Mass Index 60.0 To 69.9 Adult (HCC) Inject 2.5 mg under the skin every 7 (seven) days for 27 days. Weeks 1 through 4 2 mL 5 Active tirzepatide (Zepbound) 5 mg/0.5 mL injection penIndications: Body Mass Index 60.0 To 69.9 Adult (HCC) Inject 5 mg under the skin every 7 (seven) days for 27 days. Weeks 5 through 8 2 mL 5 02/19/20 25 Active tirzepatide (Zepbound) 7.5 mg/0.5 mL injection penIndications: Body Mass Index 60.0 To 69.9 Adult (HCC) Inject 7.5 mg under the skin every 7 (seven) days for 27 days. Weeks 9 through 12 2 mL 5 03/18/20 25 Active tirzepatide (Zepbound) 10 mg/0.5 mL injection penIndications: Body Mass Index 60.0 To 69.9 Adult (HCC) Inject 10 mg under the skin every 7 (seven) days for 27 days. Weeks 13 through 16 2 mL 5 04/15/20 25 Active tirzepatide (Zepbound) 12.5 mg/0.5 mL injection penIndications: Body Mass Index 60.0 To 69.9 Adult (HCC) Inject 12.5 mg under the skin every 7 (seven) days for 27 days. Weeks 17 through 20 2 mL 5 05/13/20 25 Active tirzepatide (Zepbound) 15 mg/0.5 mL injection penIndications: Body Mass Index 60.0 To 69.9 Adult (HCC) Inject 15 mg under the skin every 7 (seven) days. Maintenance 2 mL 3 5 Active albuterol 90 mcg/actuation inhaler Inhale 2 puffs every 4 (four) hours as needed for shortness of breath. 18 g 5 Active DME CPAPIndications :Apnea Sleep Obstructive DME Order 1 each 5 Active amphetamine-dex troamphetamine (Adderall XR) 15 mg 24 hr capsuleIndicati ons:Attention Deficit Hyperactive Disorder Take 1 capsule (15 mg total) by mouth daily. 30 capsule 5 Active ondansetron (Zofran) 4 mg tabletIndicatio ns:Migraine Without Aura Not Intractable Without Status Migrainosus Take 1 tablet (4 mg total) by mouth every 8 (eight) hours as needed for nausea or vomiting. 30 tablet 3 5 Active SUMAtriptan (Imitrex) 100 mg tabletIndicatio ns:Migraine Without Aura Not Intractable Without Status Migrainosus Take 1 tablet (100 mg total) by mouth as needed for migraine. May repeat dose once in 2 hours if migraine is unresolved. Do not exceed 200 mg in 24 hours. 18 tablet 3 5 Active Active Problems Problem Noted Date Diagnosed Date Intrauterine Device Status 12/25/2024 Assessment & Plan (12/25/2024 11:03 AM CDT): Noted. Migraine Without Aura Not In tractable Without Status Migrainosus 12/25/2024 Assessment & Plan (12/25/2024 11:03 AM CDT): Experiences migraines approximately three times a month, with symptoms including pulsating pain, photophobia, phonophobia, and nausea. 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 Zofran has been helpful [...] not exceed 200 mg in 24 hours. 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 GLP-1 medications, initially for diabetes, are now used for weight loss due to their mechanisms of slowing gastric emptying, reducing appetite, and increasing insulin sensitivity. She is informed about the common side effect of nausea, which often improves over time. The medication requires prior authorization from insurance, expected to be covered by [facility]. - Prescribe tirzepatide starting at the [...] for 27 days. Weeks 13 through 16 tirzepatide (Zepbound) 12.5 mg/0.5 mL injection pen; Inject 12.5 mg under the skin every 7 (seven) days for 27 days. Weeks 17 through 20 tirzepatide (Zepbound) 15 mg/0.5 mL injection pen; Inject 15 mg under the skin every 7 (seven) days. Maintenance Apnea Sleep Obstructive 06/11/2015 Overview (11/04/2021): Sleep study 06/11/2015 - severe DANIEL Recommended nasal CPAP at 9 cm H2O Assessment & Plan (12/25/2024 11:03 AM CDT): She reports daytime exhaustion and does not currently use a CPAP machine due to losing it during a move. Recommending resuming CPAP use to address fatigue and potentially improve migraine frequency. - Prescribe a new CPAP machine and send the order to the local medical supply store. Orders: DME CPAP; DME Order Abuse Tobacco Smoking 12/12/2014 Assessment & Plan (12/25/2024 11:03 AM CDT): Only smokes a few times a month. Plans to quit on her own. Migraine Headache 12/12/2014 Gastroesophageal Reflux Disease NOS 05/02/2014 Attention Deficit Hyperactive Disorder 4 Assessment & Plan (12/25/2024 11:03 AM CDT): Diagnosed with ADD in sixth grade and [...] visit (clinic); Future Major Depressive Disorder, Recurrent, Unspecifie d 04/03/2014 Assessment & Plan (12/25/2024 11:03 AM CDT): She reports feeling overwhelmed and having difficulty focusing, potentially related to anxiety and depression. Currently seeing a psychologist. Previous medications include fluoxetine, Lexapro, Wellbutrin, and Effexor, but she does not recall their effectiveness. Decision made to address ADD first, as it is perceived as the primary issue. Resolved Problems Problem Noted Date Diagnosed Date Resolved Date Anemia 05/31/2019 09/11/2019 Precipitate Labor 04/12/2019 04/20/2019 Care Insufficient 04/12/2019 0 04/20/2019 Overview (04/12/2019): Patient did not know she was until delivery Section Delivery 04/12/2019 Gallstone With Common Bile Duct Stone 02/09/2018 04/20/2019 Overview (02/09/2018): Added automatically from request for surgery [id number] Hemorrhage Gastrointestinal 11/13/2017 02/18/2018 Pain Right Upper Quadrant 11/11/2017 Melena 11/11/2017 02/18/2018 Overview (11/11/2017): Added automatically from request for surgery [id number] Hypovolemic Shock 11/11/2017 02/18/2018 Calculus Of Bile Duct Withou t Cholangitis Or Cholecystitis With Obstruction 11/08/2017 9 Overview (11/08/2017): Added automatically from request for surgery [id number] Appendicitis Acute 09/08/2017 8 Overview (09/08/2017): Added automatically from request for surgery [id number] Obesity Unspecified 05/01/2014 02/19/20 18 Encounters Date Type Department Care Team Description 01/26/2025 Results Follow-Up Department of Family Medicine, [facility], [address] [address] Ernesto Kent M.D. Lipid Panel 01/25/2025 5:58 AM CDT - 01/25/2025 11:59 PM CDT Hospital Encounter Department of Laboratory Medicine in [address] [address] Ernesto Kent M.D. Screening Lipid; Body Mass Index 60.0 To 69.9 Adult (HCC); Screening Examination Diabetes Mellitus Discharge Disposition: Home or Self Care 12/25/2024 10:30 AM CDT Comprehensive Visit Department of Family Medicine, [facility], [address] [address] Venu Collins, Jason.A.-Marlyn., P.A. Body Mass Index 60.0 To 69.9 Adult (HCC) (Primary Dx); Apnea Sleep Obstructive; Attention Deficit Hyperactive Disorder; Major Depressive Disorder, Recurrent, Unspecified; Migraine Without Aura Not Intractable Without Status Migrainosus; Pain Knee Left; Bradycardia; Abuse Tobacco Smoking; Intrauterine Device Status; Screening Examination Diabetes Mellitus; Screening Lipid Discharge Disposition: Home or Self Care from Last 3 Months Immunizations Immunization Administration [...] pur e alcohol) occasional 1-2 a year [facility] [employer] Answer Date Recorded In the past 12 months has e [email or web address], gas, oil, or water De Correspondent threatened to shut off services in your [...] often do you attend chur ch or congregation services? More than 4 times per year [...] Answer Date Recorded PHQ-2 Score 3 12/25/2024 [facility] - Occupational [...] your living situation today? I have a [facility] place to live 12/25/2024 Education Answer Date Recorded What is the highest level of school you have completed or the highest degree you have received? Some college, no degree 07/09/2020 Comments Unknown Sex and Gender Information Value Date Recorded Sex Assigned at Female 11/19/2017 10:29 AM CDT Legal Sex Female 10:45 PM [employer]ACHIN[employer] Gender Identity Female 11/19/2017 10:29 AM CDT [...] F) 12/25/2024 10:21 AM CDT Respiratory Rate 20 04/08/2024 10:00 PM CDT Oxygen Saturation 95% 04/08/2024 10:00 PM CDT Inhaled Oxygen Concentration - - Weight 170 kg (375 lb 3.6 oz) 12/25/2024 10:21 A M CDT Height 157.3 cm (5' 1.93) 12/25/2024 10:21 AM C DT Body Mass Index 68.79 12/25/2024 10:21 AM CDT Plan of Treatment Health Maintenance Due Date Last Done Comments Hepatitis C Screening 1985 Hepatitis B Vaccines (1 of 3 - 19+ 3-dose series) 2005 Pneumococcal vaccine (0-49 years) (1 of 2 - PCV) 2005 Varicella Vaccines (2 of 2 - 13+ 2-dose series) 07/24/2017 06/26/2017 Tobacco Cessation counseling 02/17/2023 02/17/2022 COVID-19 Vaccine (2 - 2023- season) 2024 11/29/2020 Depression Monitoring (PHQ-9) 04/27/2025 12/25/2024 Cervical/Vaginal Cancer Screening 07/24/2025 07/24/2020, 07/24/2020, 12/09/2016, Additional history exists DTaP,Tdap,and Td Vaccines (4 - Td or Tdap) 04/15/2029 04/15/2019, 04/07/2017, 02/06/2008 Lipid (Cholesterol) Screening 01/25/2030 01/25/2025, 03/15/2014 Hepatitis B Screening Discontinued 04/12/2019, 017 Influenza Vaccine Completed 07/17/2024, , 07/11/2021, Additional history exists Depression Monitoring (PHQ-9 for quality tracking) Completed 12/25/2024 HPV Vaccines Aged Out No longer eligi ble based on patient's age to complete this topic IPV Vaccines Aged Out No longer eligi ble based on patient's age to complete this topic Medical Devices Implanted Type Area Budget Officer Device Identifier Shelf Expiration Date Model / Serial / Lot Hardware E.G. Pins/Screws/R ods Hardware e.g. pins/screws/abby s Abdomen Description:Clamp for GI ble ed Nexplanon- Implanted: by Leonora Reaves, JOSEFA, C.N.P., SIM-BC (Quantity not on file) Other/Legacy - See Implant Description Arm 10/07/2020 / / [id number] Procedures Procedure Name Priority Date/Time Associated Diagnosis Comments GLUCOSE, FASTING, S/P Routine 01/25/2025 6:04 AM CDT Screening Examination Diabetes Mellitus HEMOGLOBIN A1C, B Routine 01/25/2025 6:0 4 AM CDT Screening Examination Diabetes Mellitus HEPATIC FUNCTION PANEL, S Routine 01/25/2025 6:04 AM CDT Body Mass Index 60.0 To 69.9 Adult (HCC) LIPID PANEL, S Routine 01/25/2025 6:04 AM CDT Screening Lipid THINPREP W/HPV CO-TEST SCREEN Routine 07/24/2020 1:43 PM 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 LAB BLOOD ADD-ON Final Re sult [facility] [address] [place] [id number], [facility] CNFL [facility] in [address] [address] * Hepatic Function Panel (01/25/2025 6:04 AM [...] P.A.-C., P.A. LAB BLOOD ADD-ON Final Result [facility] [address] [place] [phone], [facility] CNFL [facility] in [address] [address] * Hemoglobin A1c (01/25/2025 6:04 AM CDT) Hemoglobin A1c, B 5.3 4.2 - 5.6 % 01/25/2025 6:18 AM CDT CNFL Blood (Blood, Venous) 01/25/2025 6:04 AM CDT 01/25/2025 6:05 AM CDT Venu Collins P.A.-C., P.A. LAB BLOOD ADD[place] [address], [facility] [place] [address] * Glucose, Fasting (01/25/2025 6:04 AM CDT) Glucose, P 88 70 - 100 mg/dL 01/25/2025 6:19 AM CDT CNFL Last Intake 2 hr 01/25/2025 6:05 AM CDT CNFL Blood (Blood, Venous) 01/25/2025 6:04 AM CDT 01/25/2025 6:05 AM CDT Venu Collins P.A.-C., P.A. LAB BLOOD NON AD D-[place] [address], [place] [address] * ThinPrep w/HPV Co-Test Screen (07/24/2020 1:43 PM MACHINIST HELPER MARINE) 07/30/2020 2:28 PM MACHINIST HELPER [employer]INE ECLR Disclaimer High risk HPV testing, Real-Time Polymerase Chain Reaction (PCR) was performed on the liquid-based cytology specimen at [facility], [place], [place]. 07/30/2020 2:28 PM MACHINIST HELPER [employer]INE ECLR Report electronically signed by LISSETT Foley(ASCP) I verify that I have examined all relevant slides/materials for the specimen(s) and rendered or confirmed the diagnosis. 07/30/2020 2:28 PM MACHINIST HELPER MARINE ECLR Gross Description Received specimen in a ThinPrep vial. 07/30/2020 2:28 PM MACHINIST HELPER MARINE ECLR Pap Test Source Cervical/Endocervi huma 07/30/2020 2:28 PM MACHINIST HELPER MARINE ECLR Interpretation Cervical/Endocervi huma (ThinPrep): Satisfactory for [...] 59, 66, and 68. 07/30/2020 2:28 PM MACHINIST HELPER MARINE ECLR Varies (Cervix/Endocerv ix) 07/24/2020 1:43 PM MACHINIST HELPER MARINE 07/26/2020 10:27 AM MACHINIST HELPER [employer]INE Leonora Reaves APRN, C.N.P., [facility] PAP PATHD X ORDERABLES Final Result Performing Organization Address City/[facility] Co de Phone Number [facility] [address] [place] [address], [facility] ECLR [facility] [place] [address] * Hepatitis B Surface Antigen (04/12/2019 9:41 AM CDT) HBs Antigen, S Nonreactive Nonreactive 04/12/20 19 2:59 PM CDT Comment: Biotin has been identified by the assistant child care teacher as a potential interfering substance. Higher concentrations of biotin may be found in multivitamins, hair/nail supplements, and workout supplements. If the result does not match clinical observations, repeat testing after patient refrains from the use of supplements for at least 12 hours. Blood (Blood, Peripheral Draw) 04/12/2019 9:41 AM CDT 04/12/2019 2:19 PM CDT Xin De Leon M.D. LAB MICROBIOLOGY - BLOOD OR DERABLES Final Result [facility] [address] [place] [address], [facility] from Last 3 Months or Most Recently Relevant to Health Maintenance Insurance [employer] Advance Directives For more information, please contact: [phone] * Full Code (Latest Code Status on [...] Due to: Not medically appropriate Care Teams Research Fellow Relationship Specialty Start Date End Date Ernesto Kent M.D. [address] [place] [id number] PCP - General 10/05/22
--- NOTE | 2025-01-27 17:21 | ED.GENADULT ---
HPI - General Adult General Date Seen: 01/27/25 Chief complaint: Urogenital Problems, Female Stated complaint: UTI concerns Time Seen by Provider: 01/27/25 17:20 History of Present Illness HPI narrative: 39 yo F with past medical history including ADHD, depression/anxiety, elevated BMI, sleep apnea, presenting to the ER today with concern for possible urinary tract infection. She notes that she has had some mild urinary urgency and frequency ongoing for the past couple of weeks. She thought she might have had a UTI but then the symptoms seemed to get better for a couple of days. Since yesterday symptoms have recurred with more urinary frequency, urgency and also dysuria. She notes that today the symptoms are more intense and that she feels an urgent need to urinate and then will urinate a little bit. Then she her bladder empties and she stops urinating but she has ongoing urgency to urinate. She also had some dark tinged colored urine today. She is not having a fever. No nausea vomiting. No pain anywhere in her body. No abdominal pain. No flank pain. She is not having any vaginal symptoms. Given the increased intensity over urinary symptoms, she is very suspicious she has UTI. She came to the ER today on Wednesday because she can not wait until Wednesday to initiate therapy. Symptoms are too bothersome. Patient also notes that she started to medications over the past couple of months. One of them is Zetbound. The other 1 is Adderall. Related Data Home Medications ?Medication ?Instructions ?Recorded ?Confirmed ondansetron HCl 4 mg tablet 4 mg PO Q8H PRN 01/27/25 01/27/25 sumatriptan succinate 100 mg tablet PO 01/27/25 tirzepatide (weight loss) 2.5 mg subcut 01/27/25 mg/0.5 mL subcutaneous pen injector (Zepbound) tirzepatide (weight loss) 5 mg/0.5 mg subcut 01/27/25 mL subcutaneous pen injector (Zepbound) Previous Rx's ?Medication ?Instructions ?Recorded ketorolac 10 mg tablet 10 mg PO TID 5 days #15 tabs 09/12/22 metronidazole 500 mg tablet 500 mg PO Q8H 7 days #21 tabs 09/12/22 methylprednisolone 4 mg tablets in See Rx Instructions PO .COMPLEX 07/13/23 a dose pack (Medrol (Kirit)) #21 ea Allergies Allergy/AdvReac Type Severity Reaction Status Date / Time venlafaxine (From Effexor) Allergy Mild Rash Verified 01/27/25 17:24 Penicillins Allergy Unknown Verified 01/27/25 17:24 [facility] Medical History History of vaginal delivery (01/03/08) History of vaginal delivery (06/24/17) Hypovolemic shock (11/11/17) ?R57.1 - Hypovolemic shock (ICD-10) History of GI bleed (11/13/17) ?Z87.19 - Personal history of other diseases of the digestive system (ICD-10) Surgical History S/P dilation and curettage (06/18/22) ?Z98.890 - Other specified postprocedural states (ICD-10) Hx laparoscopic cholecystectomy (03/03/18) ?Z90.49 - Acquired absence of other specified parts of digestive tract (ICD-10) Hx of appendectomy (09/08/17) ?Z90.49 - Acquired absence of other specified parts of digestive tract (ICD-10) S/P section (04/12/19) ?Z98.891 - History of uterine scar from previous surgery (ICD-10) Family History Mother Thyroid disease Social History Narrative: 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 Alert. Conversant. Non toxic. HENT: Head: Atraumatic. Nose: Nose normal. Mouth/Throat: Oral mucosa is clear and moist. no trismus. Eyes: Conjunctivae normal. EOM normal. Pupils equal, round, and reactive to light. No scleral icterus. Neck: Normal range of motion. Neck supple. No tracheal deviation present. Cardiovascular: Normal rate, regular rhythm. Normal cap refill. Skin is pink, warm, dry, well perfused. Pulmonary/Chest: Effort normal. No stridor. No respiratory distress. No tenderness. Abdominal: Soft. No distension. No mass. No tenderness. No rebound. No guarding. No CVA tenderness Musculoskeletal: RUE: Normal range of motion. No tenderness. No deformity LUE: Normal range of motion. No tenderness. No deformity RLE: Normal range of motion. No edema. No tenderness. No deformity LLE: Normal range of motion. No edema. No tenderness. No deformity Neurological: Alert and oriented to person, place, and time. Normal strength. CN II-VII intact. No sensory deficit. GCS eye subscore is 4. GCS verbal subscore is 5. GCS motor subscore is 6. Normal coordination Skin: Skin is warm and dry. No rash noted. No pallor. Normal capillary refill. Psychiatric: Normal mood. Normal affect. Very polite. Const: Vital Signs, click to edit/add: Vital Signs - 24 hr 01/27/25 17:26 Temperature 97.6 F Pulse Rate [Pulse Oximeter] 96 Respiratory Rate 20 Blood Pressure [Ri ght Upper Arm] 149/82 H Pulse Oximetry 98 Oxygen Delivery Me thod Room Air Course Vital Signs Vital signs: Initial Vital Signs Temperature 97.6 F 01/27/25 17:26 Temperature Source Temporal Artery Scan 01/27/25 17:26 Pulse Rate 96 01/27/25 17:26 Respiratory Rate 20 01/27/25 17:26 Blood Pressure 149/82 H 01/27/25 17: Blood Pressure Mean 104 01/27/25 17:26 Pulse Oximetry 98 01/27/25 17:26 Oxygen Delivery Method Room Air 01/27/25 17:26 Vital Signs Temperature 97.6 F 01/27/25 17:26 Pulse Rate 96 01/27/25 17:26 Respiratory Rate 20 01/27/25 17:26 Blood Pressure 149/82 H 01/27/25 17:26 Pulse Oximetry 98 01/27/25 17:26 Oxygen Delivery Method Room Air 01/27/25 17:26 Temperature 97.6 F 01/27/25 17:26 Pulse Rate 96 01/27/25 17:26 Respiratory Rate 20 01/27/25 17:26 Blood Pressure 149/82 H 01/27/25 17:26 Pulse Oximetry 98 01/27/25 17:26 Oxygen Delivery Method Room Air 01/27/25 17:26 Medical Decision Making MDM Narrative Medical decision making narrative: This patient presents for evaluation of urinary urgency, frequency, dysuria. This clinically is consistent with a urinary tract infection. Urinalysis confirms the infection. There has been no fever, back/flank pain or significant abdominal pain. There is no clinical evidence of pyelonephritis, appendicitis, colitis, diverticulitis or any intraabdominal catastrophe. The patient will be started on antibiotics for the infection. Return if increasing pain, vomiting, fever, or inability to tolerate the oral antibiotic. Follow up with primary physician is indicated if not improving in 2-3 days. Instymeds prescription for cephalexin 500 mg p.o. b.i.d. for 7 days. 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 Precautions for return to the ER reviewed. Urine culture pending at this time. Patient understands that we will contact her by phone if we need to change antibiotics based on the culture results. Lab Data Labs: Lab Results 01/27/25 01/27/25 Range/Units 17:24 Unknown Urine Color Yellow (Yellow) Urine Appearance Clear (Clear) Urine pH 5.5 (5.0-8.5) Ur Specific [place] >= 1.030 (1.000-1.030) Urine Protein 2+ A (Negative) Urine Glucose (UA) Negative (Negative) Urine Ketones Negative (Negative) Urine Blood 3+ A (Negative) Urine Nitrite Positive A (Negative) Urine Bilirubin Negative (Negative) Urine Urobilinogen 0.2 (0.2-1.0) Ur Leukocyte Esterase 1+ A (Negative) Urine RBC 10-25 A (0-2) Urine WBC 5-10 A (0-5) Ur Squamous Epith Cells Few (None-Few) Urine Bacteria Moderate A (None) Urine Yeast Moderate A (None) Urine HCG, Qual Negative (Negative) Discharge Plan Discharge Clinical Impression: UTI (urinary tract infection) Patient Disposition: Home, Self-Care Condition: Stable Instructions: Acute Urinary Retention in Women (ED) Additional Instructions: As we discussed, please start on the antibiotic tonight. Take the antibiotic twice a day for 1 week. The laboratory will call you in 1-2 days if we need to change her antibiotic based on the results of your urine culture. Please drink plenty of fluids and stay hydrated. You can metal pickling equipment operator [id number] a medication called Pyridium (brand name - azo) which can help reduce some of the symptoms of ear infection. If you have any problems such as worsening pain, fever or chills, vomiting, flank pain or kidney pain, weakness, or any other problems please return to the emergency room right away. Prescriptions: No Action ketorolac 10 mg tablet 10 mg PO TID 5 Days Qty: 15 0RF metronidazole 500 mg tablet 500 mg PO Q8H 7 Days Qty: 21 0RF methylprednisolone [Medrol (Kirit)] 4 mg tablets,dose pack See Rx Instructions .ROUTE .COMPLEX Qty: 21 0RF Rx Instructions: orally per package directions sumatriptan succinate 100 mg tablet PO ondansetron HCl 4 mg tablet 4 mg PO Q8H PRN Zepbound 2.5 mg/0.5 mL pen injector SUBCUT Patient Comments: [NO ORIGINAL SIG] Zepbound 5 mg/0.5 mL pen injector SUBCUT Patient Comments: [NO ORIGINAL SIG] Follow Up/Referrals: Provider,Not a Local [Non-Staff, Family Practice] Stand Alone Forms: MyHealth Info Instructions
[2025-01-27 17:26] VITALS: BP 149/82; PULSE 96; RESP 20; TEMP 36.4; O2SAT 98; BMI 67.1
[2025-01-27 17:45] LABS: Appearance Urine Clear (Clear); Bilirubin Urine Negative (Negative); Blood Urine 3+ (Negative); Color Urine Yellow (Yellow); Glucose Urine Negative (Negative); Ketones Urine Negative (Negative); Leukocyte Esterase Urine 1+ (Negative); Nitrite Urine Positive (Negative); Protein Urine 2+ (Negative); Specific Gravity Urine >= 1.030 (1.000-1.030); Urobilinogen Urine 0.2 (0.2-1.0); pH Urine 5.5 (5.0-8.5)
[2025-01-27 17:58] LABS: Ur HCG Qualitative* Negative (Negative)
[2025-01-27 18:21] LABS: Bacteria Urine Moderate; Squamous Epithelial Cell Urine Few (None-Few)
--- NOTE | 2025-01-30 09:11 | ED.GENADULT ---
HPI - General Adult General Chief complaint: Urogenital Problems, Female Stated complaint: UTI concerns Time Seen by Provider: 01/27/25 17:20 History of Present Illness HPI narrative: Urine culture growing pansensitive E coli. On Cipro 500 b.i.d. for 7 days. No change Related Data Home Medications ?Medication ?Instructions ?Recorded ?Confirmed ondansetron HCl 4 mg tablet 4 mg PO Q8H PRN 01/27/25 01/27/25 sumatriptan succinate 100 mg tablet PO 01/27/25 tirzepatide (weight loss) 2.5 mg subcut 01/27/25 mg/0.5 mL subcutaneous pen injector (Zepbound) tirzepatide (weight loss) 5 mg/0.5 mg subcut 01/27/25 mL subcutaneous pen injector (Zepbound) Previous Rx's ?Medication ?Instructions ?Recorded ketorolac 10 mg tablet 10 mg PO TID 5 days #15 tabs 09/12/22 metronidazole 500 mg tablet 500 mg PO Q8H 7 days #21 tabs 09/12/22 methylprednisolone 4 mg tablets in See Rx Instructions PO .COMPLEX 07/13/23 a dose pack (Medrol (Kirit)) #21 ea Allergies Allergy/AdvReac Type Severity Reaction Status Date / Time venlafaxine (From Effexor) Allergy Mild Rash Verified 01/27/25 17:24 Penicillins Allergy Unknown Verified 01/27/25 17:24 PFSH PFSH Medical History History of vaginal delivery (01/03/08) History of vaginal delivery (06/24/17) Hypovolemic shock (11/11/17) ?R57.1 - Hypovolemic shock (ICD-10) History of GI bleed (11/13/17) ?Z87.19 - Personal history of other diseases of the digestive system (ICD-10) Surgical History S/P dilation and curettage (06/18/22) ?Z98.890 - Other specified postprocedural states (ICD-10) Hx laparoscopic cholecystectomy (03/03/18) ?Z90.49 - Acquired absence of other specified parts of digestive tract (ICD-10) Hx of appendectomy (09/08/17) ?Z90.49 - Acquired absence of other specified parts of digestive tract (ICD-10) S/P section (04/12/19) ?Z98.891 - History of uterine scar from previous surgery (ICD-10) Family History Mother Thyroid disease Social History Narrative: 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 Highest level of school completed/degree received: high school graduate Smoking Status: Current some day smoker Do you use any of these nicotine containing products: None How often do you have a drink containing alcohol: monthly or less How many standard drinks containing alcohol do you have on a typical day: 1 or 2 AUDIT-C Alcohol total score: 1 Non-prescribed substance use: denies use Do you think of yourself as: straight/heterosexual Gender Identity: female Course Vital Signs Vital signs: Initial Vital Signs Temperature 97.6 F 01/27/25 17:26 Temperature Source Temporal Artery Scan 01/27/25 17:26 Pulse Rate 96 01/27/25 17:26 Respiratory Rate 20 01/27/25 17:26 Blood Pressure 149/82 H 01/27/25 17:26 Blood Pressure Mean 104 01/27/25 17:26 Pulse Oximetry 98 01/27/25 17:26 Oxygen Delivery Method Room Air 01/27/25 17:26 Vital Signs Temperature 97.6 F 01/27/25 17:26 Pulse Rate 96 01/27/25 17:26 Respiratory Rate 20 01/27/25 17:26 Blood Pressure 149/82 H 01/27/25 17:26 Pulse Oximetry 98 01/27/25 17:26 Oxygen Delivery Method Room Air 01/27/25 17:26 Temperature 97.6 F 01/27/25 17:26 Pulse Rate 96 01/27/25 17:26 Respiratory Rate 20 01/27/25 17:26 Blood Pressure 149/82 H 01/27/25 17:26 Pulse Oximetry 98 01/27/25 17:26 Oxygen Delivery Method Room Air 01/27/25 17:26 Medical Decision Making Lab Data Labs: Lab Results 01/27/25 01/27/25 Range/Units 17:24 Unknown Urine Color Yellow (Yellow) Urine Appearance Clear (Clear) Urine pH 5.5 (5.0-8.5) Ur Specific [place] >= 1.030 (1.000-1.030) Urine Protein 2+ A (Negative) Urine Glucose (UA) Negative (Negative) Urine Ketones Negative (Negative) Urine Blood 3+ A (Negative) Urine Nitrite Positive A (Negative) Urine Bilirubin Negative (Negative) Urine Urobilinogen 0.2 (0.2-1.0) Ur Leukocyte Esterase 1+ A (Negative) Urine RBC 10-25 A (0-2) Urine WBC 5-10 A (0-5) Ur Squamous Epith Cells Few (None-Few) Urine Bacteria Moderate A (None) Urine Yeast Moderate A (None) Urine HCG, Qual Negative (Negative) Discharge Plan Discharge Clinical Impression: UTI (urinary tract infection) Patient Disposition: Home, Self-Care Condition: Stable Instructions: Acute Urinary Retention in Women (ED) Additional Instructions: As we discussed, please start on the antibiotic tonight. Take the antibiotic twice a day for 1 week. We will call you in 1-2 days if we need to change your antibiotic based on the results of your urine culture. Please drink plenty of fluids and stay hydrated. 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 If you have any problems such as worsening pain, fever or chills, vomiting, flank pain or kidney pain, weakness, or any other problems please return to the emergency room right away. Prescriptions: No Action ketorolac 10 mg tablet 10 mg PO TID 5 Days Qty: 15 0RF metronidazole 500 mg tablet 500 mg PO Q8H 7 Days Qty: 21 0RF methylprednisolone [Medrol (Kirit)] 4 mg tablets,dose pack See Rx Instructions .ROUTE .COMPLEX Qty: 21 0RF Rx Instructions: orally per package directions sumatriptan succinate 100 mg tablet PO ondansetron HCl 4 mg tablet 4 mg PO Q8H PRN Zepbound 2.5 mg/0.5 mL pen injector SUBCUT Patient Comments: [NO ORIGINAL SIG] Zepbound 5 mg/0.5 mL pen injector SUBCUT Patient Comments: [NO ORIGINAL SIG] Follow Up/Referrals: Provider,Not a Local [Non-Staff, Family Practice] Stand Alone Forms: MyHealth Info Instructions
== END 2025-01-27 19:06 | disposition home or self-care (01) ==
PROVIDERS: Emergency Provider Emergency Medicine; PCP Physician Assistant
DX: N39.0 Urinary tract infection, site not specified (principal)
CPT/HCPCS: 81001; 81025; 84703; 87086; 99281; 99282; 99283